=== PATIENT | female | born 1960 | race Caucasian/White ===

== ENCOUNTER → 2023-03-01 09:15 | Outpatient (BNVA) | payer OTHER, SELFPAY | PROVIDERS: PCP Family Medicine; Visit Provider Internal Medicine ==

== ENCOUNTER 2023-04-09 09:13 | Emergency (ER) | payer OTHER, SELFPAY ==
[2023-04-09 09:23] VITALS: BP 120/66; PULSE 75; RESP 18; TEMP 36.7; O2SAT 95; BMI 30.2
[2023-04-09 09:59] LABS: MANUAL DIFF FLAG NO
[2023-04-09 10:00] LABS: Basophils Absolute Auto 0.1 X10*3/uL (0.0-0.2); Basophils Percent Auto 0.4 % (0-2); Eosinophils Absolute Auto 0.3 X10*3/uL (0.0-0.4); Eosinophils Percent Auto 1.7 % (0-4); Hematocrit 34.3 % (37.0-47.0); Hemoglobin 11.1 g/dl (12.0-16.0); Imm Gran Abs Auto 0.08 X10*3/uL (0.00-0.03); Imm Gran Pct Auto 0.5 % (0.0-0.4); Lymphocytes Absolute Auto 2.2 X10*3/uL (1.2-4.9); Lymphocytes Percent Auto 14.7 % (20-40); Mean Corpuscular HGB Conc 32.4 g/dl (31.0-35.0); Mean Corpuscular Hemoglobin 27.6 pg (27.0-33.0); Mean Corpuscular Volume 85.3 fL (80.0-98.0); Mean Platelet Volume 8.7 fL (9.4-12.3); Monocytes Percent Auto 6.6 % (2-11); Neutrophils Absolute Auto 11.5 x10*3/uL (2.0-8.3); Neutrophils Percent Auto 76.1 % (45-73); Platelet Count 316 X10*3/uL (160-400); Red Blood Count 4.02 X10*6/uL (4.20-5.50); Red Cell Distribution Width 13.5 % (11.0-16.0); White Blood Count 15.1 X10*3/uL (4.8-10.8)
[2023-04-09 10:18] LABS: Alanine Aminotransferase 26 U/L (0-31); Albumin Level 3.4 g/dL (3.5-5.0); Alkaline Phosphatase 101 U/L (39-117); Anion Gap 17 (12-20); Aspartate Amino Transferase 23 U/L (5-31); Bilirubin Direct 0.2 mg/dL (0.0-0.5); Bilirubin Total 0.4 mg/dL (0.0-1.0); Blood Urea Nitrogen 20 mg/dL (9-16); Carbon Dioxide 25 mmol/L (22-29); Chloride 100 mmol/L (96-108); Creatinine Clr Calc Pharmacy 76.8; Estimated Glomerular Filt Rate > 60; Glucose Random 118 mg/dL (60-115); Lipase 12 U/L (8-78); Potassium 2.8 mmol/L (3.3-5.1); Sodium 139 mmol/L (135-145); Total Protein 7.4 g/dL (6.5-8.0)
[2023-04-09 14:25] VITALS: BP 127/64; PULSE 71; RESP 20; TEMP 36.6; O2SAT 94
--- NOTE | 2023-04-09 14:28 | PC.NURSE ---
bowel sounds absent c/o 8/10 lower abdominal pain.
--- NOTE | 2023-04-09 17:17 | PC.NURSE ---
Patient was seen in December for diverticulitis, since then her bowel movements have been decreased and what she is able to get out is thin and pencil-like. Over the past week patient states that she really hasn't had any bowel movements and knows that she is impacted. Patient with hypoactive bowel sounds at this time.
[2023-04-09 18:32] VITALS: BP 131/54; PULSE 72; RESP 18; O2SAT 95
--- NOTE | 2023-04-09 18:56 | ED_ITS ---
HPI - General Adult General Chief complaint: Abdominal Pain Stated complaint: impacted? Time Seen by Provider: 04/09/23 18:18 Source: patient Mode of arrival: ambulatory Limitations: no limitations History of Present Illness HPI narrative: Patient with history of diverticulitis been constipated since the last episode of diverticulitis in 12/25 feel bloated moving very small amount of stools last bowel movement was 3 days ago no nausea no vomiting patient tried Colace at home without much response no nausea no vomiting Related Data Home Medications Medication Instructions Recorded Confirmed amlodipine 5 mg tablet 5 mg PO DAILY 03/01/23 atorvastatin 20 mg tablet 20 mg PO DAILY 03/01/23 esomeprazole magnesium 40 mg 40 mg PO DAILY 03/01/23 capsule,delayed release (Nexium) hydrochlorothiazide 25 mg tablet 25 mg PO DAILY 03/01/23 lisinopril 30 mg tablet 30 mg PO DAILY 03/01/23 metoprolol succinate 100 mg 150 mg PO 03/01/23 tablet,extended release 24 hr trazodone 100 mg tablet 200 mg PO BEDTIME PRN 03/01/23 Previous Rx's Medication Instructions Recorded Nexium 20 mg capsule,delayed 20 mg PO DAILY #90 caps 03/01/23 release (esomeprazole magnesium) bisacodyl 5 mg tablet,delayed 10 mg PO BEDTIME #30 tabs 04/09/23 release (Dulcolax (bisacodyl)) polyethylene glycol 3350 17 17 g PO DAILY #510 grams 04/09/23 gram/dose oral powder (Miralax) Allergies Allergy/AdvReac Type Severity Reaction Status Date / Time amoxicillin [Augmentin] Allergy Unknown GI, Verified 04/09/23 09:27 Difficulty breathing clavulanic acid [Augmentin] Allergy Unknown GI, Verified 04/09/23 09:27 Difficulty breathing codeine [CODEINE] Allergy Unknown SENSITIVIT Verified 04/09/23 09:27 Y erythromycin base Allergy Unknown GI, DIFF Verified 04/09/23 09:27 [Erythromycin Base] BREATHING NSAIDS (Non-Steroidal Allergy Unknown GI UPSET Verified 04/09/23 09:27 Anti-Inflamma [NSAIDS (NON-STEROIDAL ANTI-INFLAMMA] shellfish derived Allergy Unknown Sensitivity Verified 04/09/23 09:27 Sulfa (Sulfonamide Allergy Unknown RASH Verified 04/09/23 09:27 Antibiotics) morphine [MORPHINE] AdvReac Severe NAUSEA Verified 04/09/23 09:27 aspirin [Aspirin] AdvReac Mild STOMACH Verified 04/09/23 09:27 UPSET Review of Systems Review of Systems: Yes all other systems are reviewed and are negative [facility] Past Medical History Surgical History History of esophagogastroduodenoscopy (EGD) Hx of colonoscopy Family History Family History Father Colon cancer Paternal Aunt Colon cancer Social History Social History Advance Directives: No Advance Directives Information Provided: Yes Physical Exam ED Vital Signs: Vital Signs - 24 hr 04/09/23 09:23 04/09/23 14:25 04/09/23 18:32 Temperature 98.0 F 97.9 F Pulse Rate 75 71 72 Respiratory Rate 18 20 18 Blood Pressure 120/66 127/64 131/54 L Pulse Oximetry 95 94 95 Oxygen Delivery Method Room Air Room Air Room Air BMI result Body Mass Index 30.2 Appearance: Alert. Oriented X3. No acute distress. Eyes: No pallor or icterus ENT: Pharynx normal. Oral Mucosa moist Neck: Normal inspection. Neck supple. CVS: Normal heart rate and rhythm. Pulses normal. Respiratory: No respiratory distress. Equal air entry bilateral, no wheezing/rales/rhonchi Abdomen: Soft and nontender. Bowel sounds are present, no mass palpable, no CVA tenderness rectal: Soft stool Skin: Skin warm and dry. Normal skin color. Normal skin turgor. Extremities: No lower extremity edema. No calf tenderness Neuro: Oriented X 3. No motor deficit. Medications Administered Discontinued Medications Generic Name Dose Route Start Last Admin Trade Name Freq PRN Reason Stop Dose Admin Bisacodyl 10 mg 04/09/23 18:44 04/09/23 19:08 Bisacodyl 5 Mg Tablet. PO 04/09/23 18:45 10 mg ONCE ONE Administration Magnesium Hydroxide 30 ml 04/09/23 18:44 04/09/23 19:08 Milk Of Magnesia 30 Ml Oral.Susp PO 04/09/23 18:45 30 ml ONCE ONE Administration Polyethylene Glycol 17 gm 04/09/23 18:56 04/09/23 19:08 Polyethylene Glycol 3350 17 Gm Powd.Pack PO 04/09/23 18:57 17 gm ONCE ONE Administration Medical Decision Making Lab Data 04/09/23 09:53 04/09/23 09:53 Labs: Lab Results 04/09/23 04/09/23 Range/Units 09:53 09:53 WBC 15.1 H (4.8-10.8) X10*3/uL RBC 4.02 L (4.20-5.50) X10*6/uL Hgb 11.1 L (12.0-16.0) g/dl Hct 34.3 L (37.0-47.0) % MCV 85.3 (80.0-98.0) fL MCH 27.6 (27.0-33.0) pg MCHC 32.4 (31.0-35.0) g/dl RDW 13.5 (11.0-16.0) % Plt Count 316 (160-400) X10*3/uL MPV 8.7 L (9.4-12.3) fL Immature Gran % (Auto) 0.5 H (0.0-0.4) % Neut % (Auto) 76.1 H (45-73) % Lymph % (Auto) 14.7 L (20-40) % [place] % (Auto) 6.6 (2-11) % Eos % (Auto) 1.7 (0-4) % Baso % (Auto) 0.4 (0-2) % Lymph # (Auto) 2.2 (1.2-4.9) X10*3/uL [place] # (Auto) 1.0 (0.1-1.2) X10*3/uL Eos # (Auto) 0.3 (0.0-0.4) X10*3/uL Baso # (Auto) 0.1 (0.0-0.2) X10*3/uL Abs Immat Gran (auto) 0.08 H (0.00-0.03) X10*3/uL Absolute Neuts (auto) 11.5 H (2.0-8.3) x10*3/uL Absolute Nucleated RBC 0.000 (0.0-0.012) X10*3/uL Nucleated RBC % (auto) 0.0 (0.0-0.2) /100WBC Sodium 139 (135-145) mmol/L Potassium 2.8 L (3.3-5.1) mmol/L Chloride 100 (96-108) mmol/L Carbon Dioxide 25 (22-29) mmol/L Anion Gap 17 (12-20) BUN 20 H (9-16) mg/dL Creatinine 0.70 (0.5-1.4) mg/dL Estim Creat Clear Calc 76.8 Estimated GFR > 60 Random Glucose 118 H (60-115) mg/dL Calcium 9.0 (8.4-10.2) mg/dL Total Bilirubin 0.4 (0.0-1.0) mg/dL Direct Bilirubin 0.2 (0.0-0.5) mg/dL AST 23 (5-31) U/L ALT 26 (0-31) U/L Alkaline Phosphatase 101 (39-117) U/L Total Protein 7.4 (6.5-8.0) g/dL Albumin 3.4 L (3.5-5.0) g/dL Lipase 12 (8-78) U/L Discharge Plan Discharge Clinical Impression: Constipation Patient Disposition: Home, Self-Care Instructions: Constipation (ED) Additional Instructions: Drink plenty of fluids Take MiraLax daily Dulcolax also daily at bedtime if constipation continue Prescriptions: New polyethylene glycol 3350 [Miralax] 17 gram/dose powder 17 g PO DAILY Qty: 510 0RF bisacodyl [Dulcolax (bisacodyl)] 5 mg tablet,delayed release (DR/EC) 10 mg PO BEDTIME Qty: 30 0RF No Action metoprolol succinate 100 mg tablet extended release 24 hr 150 mg PO hydrochlorothiazide 25 mg tablet 25 mg PO DAILY amlodipine 5 mg tablet 5 mg PO DAILY trazodone 100 mg tablet 200 mg PO BEDTIME PRN atorvastatin 20 mg tablet 20 mg PO DAILY lisinopril 30 mg tablet 30 mg PO DAILY esomeprazole magnesium [Nexium] 40 mg capsule,delayed release(DR/EC) 40 mg PO DAILY esomeprazole magnesium [Nexium] 20 mg capsule,delayed release(DR/EC) 20 mg PO DAILY Qty: 90 1RF
[2023-04-09] MEDS: Milk of Magnesia 30 ML ORAL.SUSP PO (19:08)
[2023-04-09] MEDS: polyethylene glycoL 3350 17 GM POWD.PACK PO (19:08)
[2023-04-09] MEDS: bisacodyL 5 MG TABLET.DR 10 MG PO (19:08)
== END 2023-04-09 19:15 | disposition home or self-care (01) ==
PROVIDERS: Emergency Provider Internal Medicine; PCP Family Medicine
DX: K59.00 Constipation, unspecified (principal); Z79.899 Other long term (current) drug therapy
CPT/HCPCS: 36415; 80048; 80076; 83690; 85025; 99284

== ENCOUNTER 2023-04-26 11:17 | Outpatient (AMB) | payer OTHER, SELFPAY ==
--- NOTE | 2023-04-26 11:19 | MHC.OFFVIS ---
Intake Vital Signs 04/26/23 11:20 Height 5 ft 2 in Weight 156 lb 4 oz BMI 28.6 BP 107/59 L Blood Pressure Location Rt brachial Position Sitting Pulse 68 Pulse Source Pulse Oximeter Pulse Oximetry (%) 96 Oxygen Delivery Method Room Air Intake Visit Reasons: ER FOLLOW UP Intake Note: Pt presents to the office today for an ER follow up. Pt states she is still having pain especially when she has a bowel movement. She states before a bowel movement she has sharp glass like pains and a deep ache . Pt states she has a lowered appetite with some nausea. Pt denies any vomiting and diarrhea. She states she doesn't see any blood in her stool. Allergies amoxicillin [Augmentin] Allergy (Unknown, Verified 04/26/23 11:24) GI, Difficulty breathing clavulanic acid [Augmentin] Allergy (Unknown, Verified 04/26/23 11:24) GI, Difficulty breathing codeine [CODEINE] Allergy (Unknown, Verified 04/26/23 11:24) SENSITIVITY erythromycin base [Erythromycin Base] Allergy (Unknown, Verified 04/26/23 11:24) GI, DIFF BREATHING NSAIDS (Non-Steroidal Anti-Inflamma [NSAIDS (NON-STEROIDAL ANTI-INFLAMMA] Allergy (Unknown, Verified 04/26/23 11:24) GI UPSET shellfish derived Allergy (Unknown, Verified 04/26/23 11:24) Sensitivity Sulfa (Sulfonamide Antibiotics) Allergy (Unknown, Verified 04/26/23 11:24) RASH morphine [MORPHINE] Adverse Reaction (Severe, Verified 04/26/23 11:24) NAUSEA aspirin [Aspirin] Adverse Reaction (Mild, Verified 04/26/23 11:24) STOMACH UPSET HPI HPI Comments History of Present Illness Details This is a 63 y.o F with PMH of hiatal hernia, ? perez's esophagus, personal hx of polyps, fam hx of colon ca, who is here to re-establish care. 03/01/23: Pt has longstanding hx of sigmoid diverticulosis with recurrent episodes of diverticulitis. Most recent episode was one month ago, managed as outpatient with PO cipro and flagyl. Currently main complaint is intermittent constipation. Pt also reports being diagnsed with perez's > 10 years ago at [facility]. Has been on Nexium 40 for a long time now. Last colo 01/2019 - sigmoid diverticulosis. x2 tubular adenoma. 04/26/23: Was seen in ER earlier this month for severe lower abdominal pain secondary to constipation. Had good response to bisacodyl and miralax while she was taking it. Currently not on any scheduled bowel regimen. Fluid intake limited to 6-8 cups a day. Stopped fiber as made abd cramping worse. At present main complaint is severe lower abd cramping with associated with small BMs. PFSH Surgical History History of esophagogastroduodenoscopy (EGD) Hx of colonoscopy Family History Father Colon cancer Paternal Aunt Colon cancer Social History Alcohol intake: never Patient Tobacco Use Status: Current everyday Tobacco user Cigarettes Per Day: 8 Review of Systems Const All systems reviewed & are unremarkable except as noted in HPI and below Physical Exam Vital Signs: Last Vital Signs Pulse 68 04/26/23 11:20 BP 107/59 L 04/26/23 11:20 Pulse Ox 96 04/26/23 11:20 Oxygen Delivery Method Room Air 04/26/23 11:20 BMI result Body Mass Index 28.6 Gen appear: NAD HEENT: nonicteric, no cervical lymphadenopathy Chest: CTA CVS: Regular S1/S2 Abd: soft, nontender, nondistended, bowel sounds + Ext: no peripheral edema Neuro: A/Ox3, noted to move all extremities spontaneously Psych: interacting appropriately Assessment & Plan Assessment & Plan (1) Diverticulosis: Code(s): K57.90 - Diverticulosis of intestine, part unspecified, without perforation or abscess without bleeding (2) Hiatal hernia: Code(s): K44.9 - Diaphragmatic hernia without obstruction or gangrene (3) GERD (gastroesophageal reflux disease): Code(s): K21.9 - Gastro-esophageal reflux disease without esophagitis (4) Barretts esophagus: Code(s): K22.70 - Perez's esophagus without dysplasia (5) Irritable bowel syndrome with constipation: Code(s): K58.1 - Irritable bowel syndrome with constipation Plan 1. Constipation. Appears to be combination of IBS-C and symptomatic diverticular disease. Reviewed daily use of miralax to regulate BMs however if that does not counter the global sx such as abd pain and cramping, low threshold to start Amitiza. Hx of polyps and fam hx of CRC. Last colo January 2019 with good prep. - Take miralax 17g mixed in 8oz water every day - If minimal response in constipation and abd cramping in 5-7 days, start amitiza 8mcg BID - This is to be continued for at least 8 weeks to monitor response - Avoid smoking. Avoid NSAIDs. - Next colo due 01/2024 - Follow up in 2-3 months 2. GERD/? BE: Irregular Z line in 2005. Biopsies not available but ? BE. Will book for an EGD with WATS-3D exam alongside the colonoscopy next year. Cont Nexium 20 Medications: New lubiprostone 8 mcg PO BID 90 days 180 caps 0RF Coding Level of Care Code Est Pt Level 4 (25440) Diagnoses Diverticulosis K57.90 Hiatal hernia K44.9 GERD (gastroesophageal reflux disease) K21.9 Barretts esophagus K22.70 Irritable bowel syndrome with constipation K58.1
[2023-04-26 11:20] VITALS: BP 107/59; PULSE 68; O2SAT 96; BMI 28.6
== END 2023-04-26 11:58 | disposition home or self-care (01) ==
PROVIDERS: PCP Family Medicine; Visit Provider Internal Medicine
DX: K57.90 Diverticulosis of intestine, part unspecified, without perforation or abscess without bleeding (principal); K44.9 Diaphragmatic hernia without obstruction or gangrene; K21.9 Gastro-esophageal reflux disease without esophagitis; K22.70 Barrett's esophagus without dysplasia; K58.1 Irritable bowel syndrome with constipation
CPT/HCPCS: 99214

== ENCOUNTER → 2023-04-26 11:17 | Outpatient (BNVA) | payer OTHER, SELFPAY | PROVIDERS: PCP Family Medicine; Visit Provider Internal Medicine ==

== ENCOUNTER 2023-05-04 10:57 | Inpatient (IN) | payer OTHER, SELFPAY ==
--- NOTE | ~2023-05-04 | XR_ITS ---
EXAMINATION: XR CHEST CLINICAL INFORMATION: Shortness of breath. Postop. COMPARISON: Previous chest x-ray 05/08/2023 TECHNIQUE: Frontal view of the chest was obtained. FINDINGS: There is a right jugular line with tip projecting over the cavoatrial junction. The cardiac and mediastinal contours are stable. There is loss of the left hemidiaphragm suggestive of left lower lobe atelectasis or consolidation. The right lung is clear. There are small bilateral pleural effusions, left greater than right. There is no pneumothorax. XR/XR chest 1V IMPRESSION: Left lower lobe atelectasis/consolidation and small bilateral pleural effusions, left greater than right.
--- NOTE | ~2023-05-04 | CT_ITS ---
EXAMINATION: CT ABDOMEN AND PELVIS WITHOUT CONTRAST CLINICAL INFORMATION: Abdominal pain. Constipation. COMPARISON: 08/09/2019 TECHNIQUE: Multidetector volumetric imaging was performed from the superior aspect of the liver through the pubic symphysis. Sagittal and coronal reformatted images were obtained on the technologist's workstation. This CT examination was performed using dose optimization techniques as appropriate, variously including the following: *Automated exposure control *Adjustment of mA and/or kV according to patient size (this includes techniques or standardized protocols for targeted exams where dose is matched to indication/reason for exam; i.e. extremities or head) *Use of iterative reconstruction technique DLP: 523 mGy-cm FINDINGS: LUNG BASES: No pleural or pericardial effusion. LIVER, GALLBLADDER, AND BILIARY TREE: The noncontrast liver is nodular. No biliary ductal dilatation is present. The gallbladder is unremarkable with no evidence of radiopaque gallstones, gallbladder wall thickening, or obvious pericholecystic inflammatory changes. PANCREAS: Atrophic. SPLEEN: Not enlarged. ADRENAL GLANDS: No adrenal mass. KIDNEYS AND URETERS: The kidneys are symmetric in size. No hydronephrosis or perinephric stranding. BLADDER: Focal wall thickening at the bladder dome in direct contiguity with a collection containing gas and fluid measuring 3.6 x 3.9 x 3.7 cm on image 67 of series 3. GASTROINTESTINAL TRACT: There is marked wall thickening of the sigmoid colon with pericolonic stranding. There is an associated fluid collection containing gas in the midline pelvis measuring 5.9 x 3.4 x 4.5 cm on image 62 of series 3. There is diverticular disease of the descending and sigmoid colon. No small bowel obstruction. Appendix is within normal limits. ABDOMINAL WALL: No significant hernia is appreciated. LYMPH NODES: No bulky abdominal or pelvic lymphadenopathy. VASCULAR: Normal caliber abdominal aorta. PELVIC VISCERA: Small free fluid in the pelvis. No large adnexal masses are appreciated. OSSEOUS STRUCTURES: No destructive bone lesions. CT/CT abdomen pelvis wo IV con IMPRESSION: Findings likely representing perforated acute diverticulitis with fistulization to the urinary bladder. Fluid collection at the dome of the urinary bladder containing gas measures 3.6 x 3.7 x 3.9 cm. Fluid collection in the midline pelvis containing gas measures 5.9 x 3.4 x 4.5 cm. Surgical consultation is recommended. Findings were reviewed and discussed with Hiwot MORIN at 1:15 PM on 05/04/2023. Nodular liver. This may represent chronic liver disease. Advise clinical correlation.
--- NOTE | ~2023-05-04 | XR_ITS ---
EXAMINATION: XR CHEST CLINICAL INFORMATION: Line placement COMPARISON: 08/18/2016 TECHNIQUE: Frontal view of the chest was obtained. FINDINGS: Right internal jugular CVL with tip at the superior cavoatrial junction. Normal cardiomediastinal silhouette. Adequate expansion of lungs. No focal consolidation. No pleural effusion or pneumothorax. No acute osseous abnormality. XR/XR chest 1V IMPRESSION: 1. Right internal jugular CVL with tip at the superior cavoatrial junction. 2. No acute disease within the chest.
--- NOTE | ~2023-05-04 | FL_ITS ---
EXAMINATION: XR FLUOROSCOPY WITH IMAGES CLINICAL INFORMATION: [employer] COMPARISON: Previous CT of the abdomen and pelvis, most recent 05/04/2023. TECHNIQUE: Performed by Dr. Fisher. 1.87 mGy 0.0326 mGym2 0.1 minutes No submitted fluoroscopic image. FINDINGS: Intraoperative fluoroscopy guidance. Single image demonstrates wire or stent and contrast in the left distal ureter. There is question of extravasated contrast outside/lateral to the left distal ureter. FL/FL guidance in OR IMPRESSION: Intraoperative fluoroscopy guidance for urology procedure.
--- NOTE | ~2023-05-04 | CT_ITS ---
PROCEDURE: CT GUIDED ABSCESS DRAINAGE CLINICAL INFORMATION: Diverticular abscess with multiple fluid collections about the pelvis. COMPARISON: 05/04/2023 TECHNIQUE: CT fluoroscopic-guided aspiration of pelvic fluid collections. This CT examination was performed using dose optimization techniques as appropriate, variously including the following: *Automated exposure control *Adjustment of mA and/or kV according to patient size (this includes techniques or standardized protocols for targeted exams where dose is matched to indication/reason for exam; i.e. extremities or head) *Use of iterative reconstruction technique DLP: 1168 mGy-cm CONSCIOUS SEDATION: The patient received intravenous conscious sedation under my direct supervision. A registered nurse monitored the patient and the patient's vital signs throughout the procedure. The total sedation time was 60 minutes. A total of 2 mg of Versed and 100 mcg fentanyl was given for good effect. FINDINGS: Informed consent was obtained from the patient prior to the procedure. During this process, the procedure and potential alternatives were explained, along with the intended outcome and benefits. The risks of the procedure, as well as the risk of not doing the procedure, were discussed. The patient was given the opportunity to ask questions regarding the procedure and appeared competent to make medical decisions. A signed consent form which documents this discussion was placed in the medical record. Using sterile technique and CT fluoroscopic guidance, from a left anterior approach a 5-Cambodian Yueh needle was directed into the more superior fluid collection with removal of approximately 20 mL of clear fluid with no evidence of grossly purulent fluid. 2 separate passes into the suprapubic collection containing air was performed from an anterior approach with a 5-Cambodian Yueh needle. On initial drainage of the superior aspect, a total of 6 mL of yellow fluid and gas was aspirated which gelatinized within 2 minutes. Samples were sent for laboratory studies. Patient tolerated procedure without difficulty. CT/CT guided drainage IMPRESSION: Aspiration of 2 pelvic fluid collections with no grossly purulent fluid identified. Above report called to referring physician at completion of the procedure.
[2023-05-04 11:00] VITALS: BP 104/59; PULSE 82; RESP 16; TEMP 36.7; O2SAT 95; BMI 28.4
--- NOTE | 2023-05-04 11:09 | ED_ITS ---
HPI - Abdominal Pain General Chief Complaint: Abdominal Pain Stated Complaint: colon pain Time Seen by Provider: 05/04/23 11:09 Source: patient Mode of arrival: ambulatory Limitations: no limitations History of Present Illness HPI narrative: 63 yo female with history of GERD, Menon's esophagus, IBS w/ constipation, diverticulosis, hiatial hernia, HTN, HLD who presents to the ER for evaluation of severe abdominal pains and constipation for the last several weeks along with new onset hematuria that started today. Patient has been following with GI, just saw Dr. Merrill on 04/26. She has been taking miralax daily but only able to have small bowel movements. She is nauseated and unable to eat. She has been waiting insurance authorization for a CT scan for further evaluation of her symptoms. She reports new onset of gross hematuria that started this morning. It joseph and hurts to urinate. No back pain. No fevers. No history of similar. This prompted her to come into the ER today. MD elicited complaint: abdominal pain Pertinent past history: constipation Onset (ago): week(s) Pain Consistency: constant Location: diffuse Severity: moderate Quality: cramping Radiation: none Migration to: no migration Exacerbating factors: eating Relieving factors: nothing Context: history of similar episodes Associated symptoms: nausea, constipation, dysuria and other (hematuria) Related Data Home Medications Medication Instructions Recorded Confirmed amlodipine 5 mg tablet 5 mg PO DAILY 03/01/23 05/04/23 atorvastatin 20 mg tablet 20 mg PO DAILY 03/01/23 05/04/23 esomeprazole magnesium 40 mg 40 mg PO DAILY 03/01/23 capsule,delayed release (Nexium) hydrochlorothiazide 25 mg tablet 25 mg PO DAILY 03/01/23 05/04/23 lisinopril 30 mg tablet 30 mg PO DAILY 03/01/23 05/04/23 metoprolol succinate 100 mg 150 mg PO DAILY 03/01/23 05/04/23 tablet,extended release 24 hr trazodone 100 mg tablet 200 mg PO BEDTIME PRN Insomnia 03/01/23 05/04/23 Previous Rx's Medication Instructions Recorded Nexium 20 mg capsule,delayed 20 mg PO DAILY #90 caps 03/01/23 release (esomeprazole magnesium) bisacodyl 5 mg tablet,delayed 10 mg PO BEDTIME #30 tabs 04/09/23 release (Dulcolax (bisacodyl)) polyethylene glycol 3350 17 17 g PO DAILY #510 grams 04/09/23 gram/dose oral powder (Miralax) lubiprostone 8 mcg capsule 8 mcg PO BID 90 days #180 caps 04/26/23 Allergies Allergy/AdvReac Type Severity Reaction Status Date / Time amoxicillin [Augmentin] Allergy Unknown GI, Verified 05/03/23 16:29 Difficulty breathing clavulanic acid [Augmentin] Allergy Unknown GI, Verified 05/03/23 16:29 Difficulty breathing codeine [CODEINE] Allergy Unknown SENSITIVIT Verified 05/03/23 16:29 Y erythromycin base Allergy Unknown GI, DIFF Verified 05/03/23 16:29 [Erythromycin Base] BREATHING NSAIDS (Non-Steroidal Allergy Unknown GI UPSET Verified 05/03/23 16:29 Anti-Inflamma [NSAIDS (NON-STEROIDAL ANTI-INFLAMMA] shellfish derived Allergy Unknown Sensitivity Verified 05/03/23 16:29 Sulfa (Sulfonamide Allergy Unknown RASH Verified 05/03/23 16:29 Antibiotics) morphine [MORPHINE] AdvReac Severe NAUSEA Verified 05/03/23 16:29 aspirin [Aspirin] AdvReac Mild STOMACH Verified 05/03/23 16:29 UPSET Review of Systems Review of Systems Yes all other systems are reviewed and are negative PMFSH Past Medical History Surgical History History of esophagogastroduodenoscopy (EGD) Hx of colonoscopy Family History Family History Father Colon cancer Paternal Aunt Colon cancer Social History Social History Alcohol intake: never Patient Tobacco Use Status: Current everyday Tobacco user Cigarettes Per Day: 8 Smoked in Last 30 Days: Yes Use of substances other than those prescribed or required for medical reasons: Yes Substance Use Type: Marijuana Substance Use Frequency: Daily Advance Directives: No Patient : No Physical Exam ED Vital Signs: Vital Signs - 24 hr 05/04/23 11:00 05/04/23 14:18 Temperature 98.1 F 98.3 F Pulse Rate 82 79 Respiratory Rate 16 16 Blood Pressure 104/59 L 108/46 L Pulse Oximetry 95 95 Oxygen Delivery Method Room Air Room Air BMI result Body Mass Index 28.4 Appearance: Alert. Oriented X3. No acute distress. Head: normocephalic, atraumatic. Eyes: Pupils equal, round and reactive to light. ENT: Pharynx normal. No tonsillar swelling or exudate. Neck: Normal inspection. Neck supple. CVS: Normal heart rate and rhythm. Pulses normal. Respiratory: No respiratory distress. Breath sounds normal. Abdomen: Soft with guarding and tenderness in the lower abdomen, L>R, decreased but present +BS x4 Skin: Skin warm and dry. Normal skin color. Normal skin turgor. No rashes. Extremities: No lower extremity edema. No joint swelling. Neuro/psych: Oriented X 3. No motor deficit. No sensory deficit. CN II-XII intact. Normal speech and cognition. Course Reevaluation(s) Reevaluation #1: spoke with jessica radiology re: CT scan findings. lactic acid and blood cultures ordered along with IV abx and additional pain control. Dr. Quan Gen Surgery contacted for further management patient updated on results and plan for surgical evaluation Time: 13:42 Medical Decision Making Medical Decision Making [facility] Narrative: 63 yo female with history of GERD, Menon's esophagus, IBS w/ constipation, diverticulosis, hiatial hernia, HTN, HLD who presents to the ER for evaluation of severe abdominal pains and constipation for the last several weeks along with new onset hematuria that started today. Abd is tender in the lower abdomen but not rigid. No fever with stable VS. Labs showing acute on chronic leukocytosis - 21k today, 15K last 2 draws. pain relieved somewhat with dilaudid. CT scan showing perforated diverticulitis w/ fisulization to the bladder, d/w radiologist lactic acid normal cefepime/flagyl and additional IVF ordered plan for surgical admit, Dr. Quan accepts Differential Diagnosis Differential Diagnoses: The differential diagnosis associated with the presentation includes constipation, SBO, [place], diverticulitis, kidney stone, UTI, Admission/Observation Consideration of admission/observation: Escalation of care including admission/observation considered Consult Healthcare Provider Management of the patient was discussed with: Information Systems Specialist Dr. Quan general surgery Lab Data [facility] Lab Attestation statement: I reviewed the patient's lab results. WBC 21.2, baseline WBC 15K from last 2 lab draws 05/04/23 11:59 05/04/23 11:59 Labs: Lab Results 05/04/23 05/04/23 05/04/23 Range/Units 11:59 13:16 13:27 WBC 21.2 H (4.8-10.8) X10*3/uL RBC 3.97 L (4.20-5.50) X10*6/uL Hgb 10.9 L (12.0-16.0) g/dl Hct 33.2 L (37.0-47.0) % MCV 83.6 (80.0-98.0) fL MCH 27.5 (27.0-33.0) pg MCHC 32.8 (31.0-35.0) g/dl RDW 13.7 (11.0-16.0) % Plt Count 461 H D (160-400) X10*3/uL MPV 8.6 L (9.4-12.3) fL Immature Gran % (Auto) 0.7 H (0.0-0.4) % Neut % (Auto) 77.6 H (45-73) % Lymph % (Auto) 14.5 L (20-40) % [place] % (Auto) 6.3 (2-11) % Eos % (Auto) 0.6 (0-4) % Baso % (Auto) 0.3 (0-2) % Lymph # (Auto) 3.1 (1.2-4.9) X10*3/uL [place] # (Auto) 1.3 H (0.1-1.2) X10*3/uL Eos # (Auto) 0.1 (0.0-0.4) X10*3/uL Baso # (Auto) 0.1 (0.0-0.2) X10*3/uL Abs Immat Gran (auto) 0.14 H (0.00-0.03) X10*3/uL Absolute Neuts (auto) 16.5 H (2.0-8.3) x10*3/uL Absolute Nucleated RBC 0.000 (0.0-0.012) X10*3/uL Nucleated RBC % (auto) 0.0 (0.0-0.2) /100WBC Sodium 135 (135-145) mmol/L Potassium 3.2 L (3.3-5.1) mmol/L Chloride 97 (96-108) mmol/L Carbon Dioxide 26 (22-29) mmol/L Anion Gap 15 (12-20) BUN 19 H (9-16) mg/dL Creatinine 0.69 (0.5-1.4) mg/dL Estim Creat Clear Calc 75.7 Estimated GFR > 60 Random Glucose 80 (60-115) mg/dL Lactic Acid (0.5-2.0) mmol/L Calcium 8.9 (8.4-10.2) mg/dL Magnesium 2.2 (1.6-2.6) mg/dL Total Bilirubin 0.3 (0.0-1.0) mg/dL Direct Bilirubin 0.1 (0.0-0.5) mg/dL AST 15 (5-31) U/L ALT 11 (0-31) U/L Alkaline Phosphatase 93 (39-117) U/L Total Protein 7.1 (6.5-8.0) g/dL Albumin 2.9 L (3.5-5.0) g/dL Urine Color Yellow Urine Appearance Turbid Urine pH 5.5 (5.0-9.0) Ur Specific [place] 1.020 (1.005-1.025) Urine Protein 300 (3+) H (Neg-Trace) mg/dL Urine Glucose (UA) Negative (Negative) mg/dL Urine Ketones 15 (Negative) mg/dL Urine Blood Large (3+) H (Negative) Urine Nitrite Positive H (Negative) Ur Leukocyte Esterase Large (3+) H (Negative) Urine RBC >20 H (0-2) /HPF Urine WBC >50 H (0-5) /HPF Urine WBC Clumps Present Ur Squamous Epith Cells >20 (0-2) /HPF Urine Bacteria 4+ (None Seen) Hyaline Casts 3-5 (0-2) /LPF 05/04/23 Range/Units 13:44 WBC (4.8-10.8) X10*3/uL RBC (4.20-5.50) X10*6/uL Hgb (12.0-16.0) g/dl Hct (37.0-47.0) % MCV (80.0-98.0) fL MCH (27.0-33.0) pg MCHC (31.0-35.0) g/dl RDW (11.0-16.0) % Plt Count (160-400) X10*3/uL MPV (9.4-12.3) fL Immature Gran % (Auto) (0.0-0.4) % Neut % (Auto) (45-73) % Lymph % (Auto) (20-40) % [place] % (Auto) (2-11) % Eos % (Auto) (0-4) % Baso % (Auto) (0-2) % Lymph # (Auto) (1.2-4.9) X10*3/uL [place] # (Auto) (0.1-1.2) X10*3/uL Eos # (Auto) (0.0-0.4) X10*3/uL Baso # (Auto) (0.0-0.2) X10*3/uL Abs Immat Gran (auto) (0.00-0.03) X10*3/uL Absolute Neuts (auto) (2.0-8.3) x10*3/uL Absolute Nucleated RBC (0.0-0.012) X10*3/uL Nucleated RBC % (auto) (0.0-0.2) /100WBC Sodium (135-145) mmol/L Potassium (3.3-5.1) mmol/L Chloride (96-108) mmol/L Carbon Dioxide (22-29) mmol/L Anion Gap (12-20) BUN (9-16) mg/dL Creatinine (0.5-1.4) mg/dL Estim Creat Clear Calc Estimated GFR Random Glucose (60-115) mg/dL Lactic Acid 1.1 (0.5-2.0) mmol/L Calcium (8.4-10.2) mg/dL Magnesium (1.6-2.6) mg/dL Total Bilirubin (0.0-1.0) mg/dL Direct Bilirubin (0.0-0.5) mg/dL AST (5-31) U/L ALT (0-31) U/L Alkaline Phosphatase (39-117) U/L Total Protein (6.5-8.0) g/dL Albumin (3.5-5.0) g/dL Urine Color Urine Appearance Urine pH (5.0-9.0) Ur Specific [place] (1.005-1.025) Urine Protein (Neg-Trace) mg/dL Urine Glucose (UA) (Negative) mg/dL Urine Ketones (Negative) mg/dL Urine Blood (Negative) Urine Nitrite (Negative) Ur Leukocyte Esterase (Negative) Urine RBC (0-2) /HPF Urine WBC (0-5) /HPF Urine WBC Clumps Ur Squamous Epith Cells (0-2) /HPF Urine Bacteria (None Seen) Hyaline Casts (0-2) /LPF Independent Interpretation I performed an independent interpretation of an: CT Scan Interpretation: ct with significant sigmoid colon abnormalities - agree w/ radiologist read Radiology Impression Discussion of test interpretation with radiology: I discussed test interpretation with the radiologist and I have reviewed the radiologist's reading. Radiologist Impression: EXAMINATION: CT ABDOMEN AND PELVIS WITHOUT CONTRAST? CLINICAL INFORMATION: Abdominal pain. Constipation.? COMPARISON: 08/09/2019 TECHNIQUE: Multidetector volumetric imaging was performed from the superior aspect of the liver through the pubic symphysis. Sagittal and coronal reformatted images were obtained on the technologist's workstation.? This CT examination was performed using dose optimization techniques as appropriate, variously including the following: *Automated exposure control *Adjustment of mA and/or kV according to patient size (this includes techniques or standardized protocols for targeted exams where dose is matched to indication/reason for exam; i.e. extremities or head) *Use of iterative reconstruction technique DLP: 523 mGy-cm FINDINGS: LUNG BASES: No pleural or pericardial effusion.? LIVER, GALLBLADDER, AND BILIARY TREE: The noncontrast liver is nodular. No biliary ductal dilatation is present. The gallbladder is unremarkable with no evidence of radiopaque gallstones, gallbladder wall thickening, or obvious pericholecystic inflammatory changes.? PANCREAS: Atrophic. SPLEEN: Not enlarged. ADRENAL GLANDS: No adrenal mass. KIDNEYS AND URETERS: The kidneys are symmetric in size. No hydronephrosis or perinephric stranding. ? BLADDER: Focal wall thickening at the bladder dome in direct contiguity with a collection containing gas and fluid measuring 3.6 x 3.9 x 3.7 cm on image 67 of series 3. GASTROINTESTINAL TRACT: There is marked wall thickening of the sigmoid colon with pericolonic stranding. There is an associated fluid collection containing gas in the midline pelvis measuring 5.9 x 3.4 x 4.5 cm on image 62 of series 3. There is diverticular disease of the descending and sigmoid colon. No small bowel obstruction. Appendix is within normal limits. ABDOMINAL WALL: No significant hernia is appreciated.? LYMPH NODES: No bulky abdominal or pelvic lymphadenopathy. VASCULAR: Normal caliber abdominal aorta. PELVIC VISCERA: Small free fluid in the pelvis. No large adnexal masses are appreciated. OSSEOUS STRUCTURES: No destructive bone lesions. CT/CT abdomen pelvis wo IV con IMPRESSION: ? Findings likely representing perforated acute diverticulitis with fistulization to the urinary bladder. ? Fluid collection at the dome of the urinary bladder containing gas measures 3.6 x 3.7 x 3.9 cm. ? Fluid collection in the midline pelvis containing gas measures 5.9 x 3.4 x 4.5 cm. ? Surgical consultation is recommended. Findings were reviewed and discussed with Hiwot MORIN at 1:15 PM on 05/04/2023. ? Nodular liver. This may represent chronic liver disease. Advise clinical correlation. External Record Review External record reviewed: Office record, Outpatient record, Prior outpatient labs and Prior outpatient radiology Prescription Management I considered prescription management with: Pain Medication and Antibiotic Chronic Conditions Patient?s care impacted by: Other (constipation, diverticulosis) Medications Administered Discontinued Medications Generic Name Dose Route Start Last Admin Trade Name Freq PRN Reason Stop Dose Admin Hydromorphone HCl 0.5 mg 05/04/23 11:33 05/04/23 12:02 Hydromorphone Hcl 0.5 Mg/0.5 Ml Syringe IVPUSH 05/04/23 11:34 0.5 mg ONCE ONE Administration Protocol Hydromorphone HCl 0.5 mg 05/04/23 13:28 05/04/23 13:49 Hydromorphone Hcl 0.5 Mg/0.5 Ml Syringe IVPUSH 05/04/23 13:29 0.5 mg ONCE ONE Administration Protocol Sodium Chloride 1,000 mls @ 999 mls/hr 05/04/23 11:45 05/04/23 12:02 Ns IVCONT 05/04/23 12:45 999 mls/hr .[id number] ARISTIDES Administration Cefepime HCl 2 gm/ Sodium 50 mls @ 100 mls/hr 05/04/23 13:20 05/04/23 13:50 Chloride IV 05/04/23 13:49 100 mls/hr ONCE ONE Administration Ondansetron HCl 4 mg 05/04/23 11:33 05/04/23 12:02 Ondansetron Hcl 4 Mg/2 Ml Vial IVPUSH 05/04/23 11:34 4 mg ONCE ONE Administration Critical Care Time Critical Care Time Critical Care Time: Yes Total Critical Care Time: 44 Attestation: I have personally provided critical care time exclusive of time spent on separately billable procedures. Time includes review of lab data, radiology results, discussion with consultants, and monitoring for potential decompensation. Intervention performed as documented. Discharge Plan Discharge Clinical Impression: Perforated diverticulum, Bladder fistula Patient Disposition: Admitted As Inpatient
[2023-05-04] MEDS: ondansetron HCL 4 MG/2 ML VIAL IVPUSH (12:02)
[2023-05-04] MEDS: 0.9 % Sodium Chloride 1,000 ML 999 ML IVCONT (12:02)
[2023-05-04] MEDS: HYDROmorphone HCl 0.5 MG/0.5 ML SYRINGE IVPUSH ×2 (12:02→13:49)
[2023-05-04 12:09] LABS: MANUAL DIFF FLAG NO
[2023-05-04 12:11] LABS: Basophils Absolute Auto 0.1 X10*3/uL (0.0-0.2); Basophils Percent Auto 0.3 % (0-2); Eosinophils Absolute Auto 0.1 X10*3/uL (0.0-0.4); Eosinophils Percent Auto 0.6 % (0-4); Hematocrit 33.2 % (37.0-47.0); Hemoglobin 10.9 g/dl (12.0-16.0); Imm Gran Abs Auto 0.14 X10*3/uL (0.00-0.03); Imm Gran Pct Auto 0.7 % (0.0-0.4); Lymphocytes Absolute Auto 3.1 X10*3/uL (1.2-4.9); Lymphocytes Percent Auto 14.5 % (20-40); Mean Corpuscular HGB Conc 32.8 g/dl (31.0-35.0); Mean Corpuscular Hemoglobin 27.5 pg (27.0-33.0); Mean Corpuscular Volume 83.6 fL (80.0-98.0); Mean Platelet Volume 8.6 fL (9.4-12.3); Monocytes Absolute Auto 1.3 X10*3/uL (0.1-1.2); Monocytes Percent Auto 6.3 % (2-11); Neutrophils Absolute Auto 16.5 x10*3/uL (2.0-8.3); Neutrophils Percent Auto 77.6 % (45-73); Platelet Count 461 X10*3/uL (160-400); Red Blood Count 3.97 X10*6/uL (4.20-5.50); Red Cell Distribution Width 13.7 % (11.0-16.0); White Blood Count 21.2 X10*3/uL (4.8-10.8)
--- NOTE | 2023-05-04 12:53 | PC.NURSE ---
Pt A/OX4, VSS, pt reports 9/10 abd pain improved to 7/10 with dilaudid. Pt states no BM X6 weeks, decreased PO intake, nausea and diarrhea. 22G PIV placed R wrist, labs obtained, pt to ct awaiting results.
[2023-05-04 13:35] LABS: Appearance Urine Turbid; Color Urine Yellow; Glucose Urine UA Negative (Negative); Leukocyte Esterase Urine Large (3+) (Negative); Nitrite Urine Positive (Negative); PH 5.5 (5.0-9.0); UMIC TRIGGER UACC YES; Urine Blood Large (3+) (Negative); Urine Ketones 15 mg/dL (Negative); Urine Protein 300 (3+) mg/dL (Neg-Trace)
[2023-05-04 13:42] LABS: Bacteria Urine 4+ (None Seen); RBC Urine >20 /HPF (0-2); Squamous Epithelial Cell Urine >20 /HPF (0-2); UACC Culture Trigger YES; WBC Clumps Urine Present; WBC Urine >50 /HPF (0-5)
[2023-05-04 13:49] LABS: Alanine Aminotransferase 11 U/L (0-31); Albumin Level 2.9 g/dL (3.5-5.0); Alkaline Phosphatase 93 U/L (39-117); Anion Gap 15 (12-20); Aspartate Amino Transferase 15 U/L (5-31); Bilirubin Direct 0.1 mg/dL (0.0-0.5); Bilirubin Total 0.3 mg/dL (0.0-1.0); Blood Urea Nitrogen 19 mg/dL (9-16); Calcium 8.9 mg/dL (8.4-10.2); Carbon Dioxide 26 mmol/L (22-29); Chloride 97 mmol/L (96-108); Creatinine Clr Calc Pharmacy 75.7; Estimated Glomerular Filt Rate > 60; Glucose Random 80 mg/dL (60-115); Magnesium 2.2 mg/dL (1.6-2.6); Potassium 3.2 mmol/L (3.3-5.1); Sodium 135 mmol/L (135-145); Total Protein 7.1 g/dL (6.5-8.0)
[2023-05-04] MEDS: cefEPime HCl 2 GM in 0.9 % Sodium Chloride 50 ML IV (13:50)
[2023-05-04 14:00] LABS: Lactic Acid 1.1 mmol/L (0.5-2.0)
[2023-05-04 14:18] VITALS: BP 108/46; PULSE 79; RESP 16; TEMP 36.8; O2SAT 95
--- NOTE | 2023-05-04 14:19 | PM.HPGS ---
History of Present Illness History of Present Illness Date of Service: 05/04/23 <Gabi Victoria PA-C - Last Filed: 05/04/23 14:55> 05/04/23 <Jack Quan MD - Last Filed: 05/04/23 16:17> Chief complaint: Sigmoid Diverticulitis w/Abscess <Gabi Victoria PA-C - Last Filed: 05/04/23 14:55> Narrative: Kia Phelps is a 63 year old female with PMH of GERD and barretts esophagus, hypertension, hyperlipidemia who presents with severe lower abdominal pain. Patient reports this has been going on for the last month. She was seen in the ED earlier this month and was diagnosed with constipation and treated with stool softeners. She had a follow up with GI on 04/26/23 and diagnosed with IBS with constipation. She reports the pain has not improved at all since she was seen and progressively worsened. The pain became so severe she presented to the ED. She reports the pain is mostly on the lower left abdomen and pelvic area. The pain has been associated with anorexia and she endorses a 20 lbs weight loss over the past month. She denies nausea, vomiting, fevers or chills. She reports she has only had very small bowel movements over the past few weeks. She has a history of sigmoid diverticulitis with multiple episodes per year for the past 10 years and have been treated with PO antibiotics. Last episode was in December of this year. Last colonoscopy was in January 2019 and showed diverticulosis, two tubular adenomas. Work up in the ED included CBC, BMP, LFTs which was significant for WBC count of 21.2 and H/H of 10.9/33.2. CT scan abd/pelvis showed marked wall thickening of the sigmoid colon with pericolonic stranding with an associated fluid collection in the midline pelvis. There was focal wall thickening at the bladder dome in direct contiguity with a collection containing gas and fluid measuring 3.6 x 3.9 x 3.7 cm. UA positive for nitrites and WBC. She continues to report severe lower abdominal pain. She denies dysuria, fecaluria, pneumaturia. <Gabi Victoria PA-C - Last Filed: 05/04/23 14:55> Review of Systems Constitutional: Constitutional: Reports anorexia, Denies chills, Denies fever(s) and Reports weight loss <Gabi Victoria PA-C - Last Filed: 05/04/23 14:55> ENT: Denies dizziness <Gabi Victoria PA-C Last Filed: 05/04/23 14:55> Cardiovascular: Cardiovascular: Denies chest pain, Denies palpitations and Denies dyspnea <Gabi Victoria PA-C - Last Filed: 05/04/23 14:55> Respiratory: Respiratory: Denies dyspnea <Gabi Victoria PA-C - Last Filed: 05/04/23 14:55> Gastrointestinal: Gastrointestinal: Reports as per HPI <Gabi Victoria PA-C Last Filed: 05/04/23 14:55> Genitourinary: Genitourinary: Reports as per HPI <Gabi Victoria PA-C Last Filed: 05/04/23 14:55> Integumentary/Breasts: Skin/Breast: Denies rash and Denies jaundice <Gabi Victoria PA-C Last Filed: 05/04/23 14:55> Neurologic: Denies dizziness <Gabi Victoria PA-C Last Filed: 05/04/23 14:55> Endocrine: Endocrine: Denies palpitations <Gabi Victoria PA-C Last Filed: 05/04/23 14:55> PMFSH Past Medical History Medical History: Medical History (Updated 05/04/23 @ 14:39 by Gabi Victoria PA-C) Barretts esophagus GERD (gastroesophageal reflux disease) Hypertension <Gabi Victoria PA-C - Last Filed: 05/04/23 14:55> Family History Family History: Family History Father Colon cancer Paternal Aunt Colon cancer <Gabi Victoria PA-C - Last Filed: 05/04/23 14:55> Surgical History Surgical History: Surgical History History of esophagogastroduodenoscopy (EGD) Hx of colonoscopy <Gabi Victoria PA-C - Last Filed: 05/04/23 14:55> Social History Social History: Social History Alcohol intake: never Patient Tobacco Use Status: Current everyday Tobacco user Cigarettes Per Day: 8 Smoked in Last 30 Days: Yes Use of substances other than those prescribed or required for medical reasons: Yes Substance Use Type: Marijuana Substance Use Frequency: Daily Advance Directives: No Patient : No <Gabi Victoria PA-C - Last Filed: 05/04/23 14:55> Meds Allergies/Adverse reactions: Allergies Allergy/AdvReac Type Severity Reaction Status Date / Time amoxicillin [Augmentin] Allergy Unknown GI, Verified 05/03/23 16:29 Difficulty breathing clavulanic acid [Augmentin] Allergy Unknown GI, Verified 05/03/23 16:29 Difficulty breathing codeine [CODEINE] Allergy Unknown SENSITIVIT Verified 05/03/23 16:29 Y erythromycin base Allergy Unknown GI, DIFF Verified 05/03/23 16:29 [Erythromycin Base] BREATHING NSAIDS (Non-Steroidal Allergy Unknown GI UPSET Verified 05/03/23 16:29 Anti-Inflamma [NSAIDS (NON-STEROIDAL ANTI-INFLAMMA] shellfish derived Allergy Unknown Sensitivity Verified 05/03/23 16:29 Sulfa (Sulfonamide Allergy Unknown RASH Verified 05/03/23 16:29 Antibiotics) morphine [MORPHINE] AdvReac Severe NAUSEA Verified 05/03/23 16:29 aspirin [Aspirin] AdvReac Mild STOMACH Verified 05/03/23 16:29 UPSET <Gabi Victoria PA-C - Last Filed: 05/04/23 14:55> Active Medications: Current Medications Acetaminophen (Acetaminophen 325 Mg Tablet) 650 mg PO Q6H PRN PRN Reason: Pain, Mild (Pain Scale 1-3) Hydromorphone HCl (Hydromorphone Hcl 1 Mg/Ml Syringe) 0.5 mg IVPUSH Q4H PRN; Protocol PRN Reason: Pain, Severe (Pain Scale 7-10) Metronidazole (Flagyl) 500 mg in 100 mls @ 100 mls/hr IV ONCE ONE Stop: 05/04/23 14:19 Sodium Chloride (Ns) 1,000 mls @ 999 mls/hr IV .Q1H1M ARISTIDES Stop: 05/04/23 14:30 Metronidazole (Flagyl) 500 mg in 100 mls @ 100 mls/hr IV Q6H ARISTIDES Levofloxacin (Levaquin) 500 mg in 100 mls @ 100 mls/hr IV Q24H ARISTIDES Potassium Chloride/Sodium Chloride (Kcl 20 Meq In 0.9 % Sodium Chl) 20 meq in 1,000 mls @ 100 mls/hr IVCONT .Q10H ARISTIDES Ondansetron HCl (Ondansetron Hcl 4 Mg/2 Ml Vial) 4 mg IVPUSH Q8H PRN PRN Reason: Nausea and Vomiting Oxycodone HCl (Oxycodone Hcl Immed Release 5 Mg Tablet) 5 mg PO Q4H PRN PRN Reason: Pain, Moderate(Pain Scale 4-6) Sodium Chloride (0.9 % Sodium Chloride Flush 3 Ml Syringe) 3 ml IVFLUSH QSHIFT ARISTIDES <Gabi Victoria PA-C - Last Filed: 05/04/23 14:55> Home medications: Home Medications Medication Instructions Recorded Confirmed Last Taken Type amlodipine 5 mg tablet 5 mg PO DAILY 03/01/23 05/04/23 05/04/23 History atorvastatin 20 mg tablet 20 mg PO DAILY 03/01/23 05/04/23 05/04/23 History esomeprazole magnesium 40 mg 40 mg PO DAILY 03/01/23 05/04/23 05/04/23 History capsule,delayed release (Nexium) hydrochlorothiazide 25 mg tablet 25 mg PO DAILY 03/01/23 05/04/23 05/04/23 History lisinopril 30 mg tablet 30 mg PO DAILY 03/01/23 05/04/23 05/04/23 History metoprolol succinate 100 mg 150 mg PO DAILY 03/01/23 05/04/23 05/04/23 History tablet,extended release 24 hr trazodone 100 mg tablet 200 mg PO BEDTIME 03/01/23 05/04/23 05/03/23 History calcium carbonate 500 mg calcium 500 mg PO DAILY 05/04/23 05/04/23 05/04/23 History (1,250 mg) tablet multivitamin 1 tab PO DAILY 05/04/23 05/04/23 05/04/23 History <Gabi Victoria PA-C - Last Filed: 05/04/23 14:55> Physical Exam Vital Signs: Vital Signs: Last Vital Signs Temp 98.3 F 05/04/23 14:18 Pulse 79 05/04/23 14:18 Resp 16 05/04/23 14:18 BP 108/46 L 05/04/23 14:18 Pulse Ox 95 05/04/23 14:18 O2 Del Method Room Air 05/04/23 14:18 BMI result Body Mass Index 28.4 <Gabi Victoria PA-C Last Filed: 05/04/23 14:55> Const: General: comfortable, no acute distress and alert <[facility] Last Filed: 05/04/23 14:55> Orientation/consciousness: patient oriented x3 <YSABEL Wilder Last Filed: 05/04/23 14:55> Resp: Effort & Inspection: normal respiratory effort <YSABEL Wilder Last Filed: 05/04/23 14:55> Cardio: Rate: regular rate <YSABEL Wilder Last Filed: 05/04/23 14:55> Rhythm: regular rhythm <YSABEL Wilder Last Filed: 05/04/23 14:55> GI: Inspection: Yes normal to inspection and No distended <YSABEL Wilder Last Filed: 05/04/23 14:55> Palpation (GI): Soft to palpation, Tenderness to palpation present (GI) in the LLQ, suprapubicly and with rebound tenderness, no guarding and not rigid <YSABEL Wilder Last Filed: 05/04/23 14:55> Percussion: Yes normal to percussion <YSABEL Wilder Last Filed: 05/04/23 14:55> Skin: General skin exam: no rashes or lesions noted <Gabi Victoria PA-C Last Filed: 05/04/23 14:55> Neuro: General: patient oriented x3 and moves all extremities <Gabi Victoria PA-C [employer] Last Filed: 05/04/23 14:55> Results Results Labs: Short CBC 08/31/23 Range/Units 11:59 WBC 21.2 H (4.8-10.8) X10*3/uL Hgb 10.9 L (12.0-16.0) g/dl Hct 33.2 L (37.0-47.0) % Plt Count 461 H D (160-400) X10*3/uL BMP 05/04/23 13:16 Sodium 135 Potassium 3.2 L Chloride 97 Carbon Dioxide 26 BUN 19 H Creatinine 0.69 Calcium 8.9 Liver Function 05/04/23 Range/Units 13:16 Total Bilirubin 0.3 (0.0-1.0) mg/dL Direct Bilirubin 0.1 (0.0-0.5) mg/dL AST 15 (5-31) U/L ALT 11 (0-31) U/L Alkaline Phosphatase 93 (39-117) U/L Albumin 2.9 L (3.5-5.0) g/dL Urine 05/04/23 Range/Units 13:27 Urine Color Yellow Urine Appearance Turbid Urine pH 5.5 (5.0-9.0) Ur Specific [place] 1.020 (1.005-1.025) Urine Protein 300 (3+) H (Neg-Trace) mg/dL Urine Glucose (UA) Negative (Negative) mg/dL <STAN Wilder Last Filed: 05/04/23 14:55> Abdomen CT scan report/results: report reviewed and image reviewed <Gabi Victoria PA-C - Last Filed: 05/04/23 14:55> Assessment and Plan (1) Colonic diverticular abscess: Status: Acute <STAN Wilder Last Filed: 05/04/23 14:55> Kia Phelps is a 63 year old female with PMH of GERD and barretts esophagus, hypertension, hyperlipidemia with hx of multiple episodes of sigmoid diverticulitis who presented to the ED with 1 month history of lower abdominal pain that acutely worsened in severity, leukocytosis and CT scan showing sigmoid diverticulitis with large fluid collection with possible colovesical fistula. The patient was admitted to the surgical service for further treatment of the diverticular abscess. IR drainage has been requested. She was started on IV flagyl and levaquin, IVF with PRN analgesics as needed. She may have a small locule of air in the bladder to suggest colovesical fistula but denies any urinary symptoms however she does have a UTI. Given her recurrent episodes and question of colovesical fistula, recommended to proceed with resection of the diseased colon, possible repair of the fistula, however if this were necessary during this hospital stay colostomy would likely be necessary. She would very much like to avoid this. Further plan dependent on clinical course. <Gabi Victoria PA-C - Last Filed: 05/04/23 14:55> Time Spent With Patient Time: Total time managing care of this patient today ____ minutes. <Gabi Victoria PA-C - Last Filed: 05/04/23 14:55> Quality Stroke Does the patient have a stroke diagnosis?: No <Jack Quan MD - Last Filed: 05/04/23 16:17> VTE Prior VTE?: No <Jack Quan MD - Last Filed: 05/04/23 16:17> VTE Risk Level:: Medical - moderate - high <Gabi Victoria PA-C - Last Filed: 05/04/23 14:55> VTE Device Contraindication: N/A - Device Ordered <Gabi Victoria PA-C - Last Filed: 05/04/23 14:55> VTE Drug Contraindication: N/A - Med Ordered <Gabi Victoria PA-C - Last Filed: 05/04/23 14:55> Procedures Date of Service Date of Service: 05/04/23 <Gabi Vitcoria PA-C - Last Filed: 05/04/23 14:55> 05/04/23 <Jack Quan MD - Last Filed: 05/04/23 16:17>
[2023-05-04] MEDS: metroNIDAZOLE/NS 500 MG/100 ML PIGGYBACK 100 MG IV ×2 (14:23→19:32)
[2023-05-04] MEDS: 0.9 % Sodium Chloride 1,000 ML 999 ML IV (14:24)
--- NOTE | 2023-05-04 14:33 | PHA.MEDREC ---
Pharmacy Consult ? Medication Reconciliation Pharmacy has completed the medication reconciliation. Patient confirmed medications. Reports the lubpristone was not approved by insurance so she is not taking it. Jessy Comer, AmyD
[2023-05-04] MEDS: levoFLOXacin/D5W 500 MG/100 ML PIGGYBACK 100 MG IV (15:40)
[2023-05-04 15:41] VITALS: BP 118/48; PULSE 80; RESP 16; O2SAT 95
[2023-05-04 15:48] LABS: INTERNATIONAL NORM RATIO 1.3 (0.9-1.1); Prothrombin Time 15.2 SEC (11.1-13.3)
[2023-05-04] MEDS: KCl 20 mEq in 0.9 % Sodium ChL 20 MEQ/1,000 ML IV.SOLN 100 MEQ IVCONT (16:37)
--- NOTE | 2023-05-04 16:42 | PC.NURSE ---
RN to RN report given to Michelle
[2023-05-04 17:23] VITALS: BP 121/60; PULSE 80; RESP 20; TEMP 36.6; O2SAT 97
[2023-05-04] MEDS: HYDROmorphone HCl 1 MG/ML SYRINGE 0.5 MG IVPUSH ×2 (17:48→22:41)
[2023-05-04 19:27] VITALS: BP 104/55; PULSE 80; RESP 20; TEMP 36; O2SAT 96
[2023-05-04] MEDS: 0.9 % Sodium Chloride Flush 3 ML SYRINGE IVFLUSH (19:33)
--- NOTE | 2023-05-04 23:22 | PC.NURSE ---
Pt in room 383 takes 200mg PO Trazadone at bedtime, she has an IR adcess drainage tomorrow. Pt is strict about her NPO diet and doesnt want to take her PO trazadone because she doesnt want to drink liquids even if its a sip of water. Pt asked for IV ativan instead. Dr. Quan was notified at 11:09 pm. He oredered pt 0.4 mg of ativan qhs prn.
[2023-05-05] VITALS (9 sets, daily range): BP systolic 106–127; BP diastolic 52–67; PULSE 73–100; RESP 14–20; TEMP 36.6–37.2; O2SAT 94–97
[2023-05-05] MEDS: ondansetron HCL 4 MG/2 ML VIAL IVPUSH ×3 (01:08→20:44)
[2023-05-05] MEDS: metroNIDAZOLE/NS 500 MG/100 ML PIGGYBACK 100 MG IV ×4 (01:55→20:44)
[2023-05-05] MEDS: LORazepam 2 MG/ML VIAL 0.5 MG IVPUSH (02:43)
[2023-05-05] MEDS: KCl 20 mEq in 0.9 % Sodium ChL 20 MEQ/1,000 ML IV.SOLN 100 MEQ IVCONT ×2 (02:47→17:30)
[2023-05-05 06:19] LABS: MANUAL DIFF FLAG NO
[2023-05-05 06:23] LABS: Basophils Absolute Auto 0.1 X10*3/uL (0.0-0.2); Basophils Percent Auto 0.3 % (0-2); Eosinophils Absolute Auto 0.1 X10*3/uL (0.0-0.4); Eosinophils Percent Auto 0.8 % (0-4); Hematocrit 29.2 % (37.0-47.0); Hemoglobin 9.2 g/dl (12.0-16.0); Imm Gran Abs Auto 0.13 X10*3/uL (0.00-0.03); Imm Gran Pct Auto 0.8 % (0.0-0.4); Lymphocytes Percent Auto 12.6 % (20-40); Mean Corpuscular HGB Conc 31.5 g/dl (31.0-35.0); Mean Corpuscular Hemoglobin 27.3 pg (27.0-33.0); Mean Corpuscular Volume 86.6 fL (80.0-98.0); Mean Platelet Volume 8.7 fL (9.4-12.3); Monocytes Absolute Auto 1.2 X10*3/uL (0.1-1.2); Monocytes Percent Auto 7.8 % (2-11); Neutrophils Absolute Auto 12.3 x10*3/uL (2.0-8.3); Neutrophils Percent Auto 77.7 % (45-73); Platelet Count 407 X10*3/uL (160-400); Red Blood Count 3.37 X10*6/uL (4.20-5.50); Red Cell Distribution Width 13.8 % (11.0-16.0); White Blood Count 15.9 X10*3/uL (4.8-10.8)
[2023-05-05 06:39] LABS: Anion Gap 15 (12-20); Blood Urea Nitrogen 9 mg/dL (9-16); Calcium 8.2 mg/dL (8.4-10.2); Carbon Dioxide 22 mmol/L (22-29); Chloride 105 mmol/L (96-108); Creatinine Clr Calc Pharmacy 95.9; Estimated Glomerular Filt Rate > 60; Glucose Random 78 mg/dL (60-115); Sodium 139 mmol/L (135-145)
[2023-05-05] MEDS: lisinopriL 10 MG TABLET 30 MG PO (08:07)
[2023-05-05] MEDS: Atorvastatin Calcium 20 MG TABLET PO (08:08)
[2023-05-05] MEDS: Metoprolol Succinate ER 50 MG TAB.ER.24H 150 MG PO (08:08)
[2023-05-05] MEDS: amLODIPine Besylate 5 MG TABLET PO (08:08)
--- NOTE | 2023-05-05 08:10 | PM.PNGS ---
Subjective Subjective Date of Service: 05/05/23 Interval history: Feels wretched this morning. Continues to c/o pain, some what relieved by IV dilaudid. Had some nausea last night too. Physical Exam Vital Signs: Vital Signs: Last Vital Signs Temp 98.4 F 05/05/23 07:15 Pulse 82 05/05/23 07:15 Resp 16 05/05/23 07:15 BP 127/52 L 05/05/23 07:15 Pulse Ox 97 05/05/23 07:15 O2 Del Method Room Air 05/05/23 07:15 BMI result Body Mass Index 30.0 Const: General: comfortable, no acute distress and alert Orientation/consciousness: patient oriented x3 Resp: Effort & Inspection: normal respiratory effort GI: Inspection: No distended Palpation (GI): Soft to palpation, Tenderness to palpation present (GI) (lower abdomen, marked at LLQ/suprapubic), no guarding and not rigid Percussion: Yes normal to percussion Skin: General skin exam: no rashes or lesions noted Neuro: General: patient oriented x3 and moves all extremities Objective Data Active Medications Acetaminophen (Acetaminophen 325 Mg Tablet) 650 mg PO Q6H PRN PRN Reason: Pain, Mild (Pain Scale 1-3) Amlodipine Besylate (Amlodipine Besylate 5 Mg Tablet) 5 mg PO DAILY [facility]; Protocol Atorvastatin Calcium (Atorvastatin Calcium 20 Mg Tablet) 20 mg PO DAILY [facility] Hydromorphone HCl (Hydromorphone Hcl 1 Mg/Ml Syringe) 0.5 mg IVPUSH Q4H PRN; Protocol PRN Reason: Pain, Severe (Pain Scale 7-10) Last Admin: 05/04/23 22:41 Dose: 0.5 mg Documented By: BHAVIK Potassium Chloride/Sodium Chloride (Kcl 20 Meq In 0.9 % Sodium Chl) 20 meq in 1,000 mls @ 100 mls/hr IVCONT .Q10H [facility] Last Admin: 05/05/23 02:47 Dose: 100 mls/hr Documented By: BHAVIK Metronidazole (Flagyl) 500 mg in 100 mls @ 100 mls/hr IV Q6H [facility] Last Infusion: 05/05/23 03:01 Dose: 0 mls/hr Documented By: BHAVIK Levofloxacin (Levaquin) 500 mg in 100 mls @ 100 mls/hr IV Q24H [facility] Last Infusion: 05/04/23 16:40 Dose: 0 mls/hr Documented By: LUZ Potassium Chloride (Potassium Chloride/H20) 10 meq in 100 mls @ 100 mls/hr IV Q1H [facility] Stop: 05/05/23 09:44 Lisinopril (Lisinopril 10 Mg Tablet) 30 mg PO DAILY [facility]; Protocol Metoprolol Succinate (Metoprolol Succinate Er 50 Mg Tab.Er.24h) 150 mg PO DAILY [facility]; Protocol Omeprazole (Omeprazole 20 Mg Capsule.Dr) 20 mg PO DAILY@0630 [facility] Ondansetron HCl (Ondansetron Hcl 4 Mg/2 Ml Vial) 4 mg IVPUSH Q8H PRN PRN Reason: Nausea and Vomiting Last Admin: 05/05/23 01:08 Dose: 4 mg Documented By: BHAVIK Oxycodone HCl (Oxycodone Hcl Immed Release 5 Mg Tablet) 5 mg PO Q4H PRN PRN Reason: Pain, Moderate(Pain Scale 4-6) Sodium Chloride (0.9 % Sodium Chloride Flush 3 Ml Syringe) 3 ml IVFLUSH QSHIFT [facility] Last Admin: 05/04/23 19:33 Dose: 3 ml Documented By: BHAVIK Trazodone HCl (Trazodone Hcl 100 Mg Tablet) 200 mg PO BEDTIME [facility] Labs 05/05/23 05:59 05/05/23 05:59 Labs: Laboratory Results - last 24 hr 05/04/23 05/04/23 05/04/23 11:59 13:16 13:27 MCV 83.6 MCH 27.5 MCHC 32.8 RDW 13.7 Plt Count 461 H D MPV 8.6 L Immature Gran % (Auto) 0.7 H Neut % (Auto) 77.6 H Lymph % (Auto) 14.5 L [place] % (Auto) 6.3 Eos % (Auto) 0.6 Baso % (Auto) 0.3 Lymph # (Auto) 3.1 [place] # (Auto) 1.3 H Eos # (Auto) 0.1 Baso # (Auto) 0.1 Abs Immat Gran (auto) 0.14 H Absolute Neuts (auto) 16.5 H Absolute Nucleated RBC 0.000 Nucleated RBC % (auto) 0.0 PT INR Anion Gap 15 Estim Creat Clear Calc 75.7 Estimated GFR > 60 Random Glucose 80 Lactic Acid Calcium 8.9 Magnesium 2.2 Total Bilirubin 0.3 Direct Bilirubin 0.1 AST 15 ALT 11 Alkaline Phosphatase 93 Total Protein 7.1 Albumin 2.9 L Urine Color Yellow Urine Appearance Turbid Urine pH 5.5 Ur Specific [place] 1.020 Urine Protein 300 (3+) H Urine Glucose (UA) Negative Urine Ketones 15 Urine Blood Large (3+) H Urine Nitrite Positive H Ur Leukocyte Esterase Large (3+) H Urine RBC >20 H Urine WBC >50 H Urine WBC Clumps Present Ur Squamous Epith Cells >20 Urine Bacteria 4+ Hyaline Casts 3-5 05/04/23 05/04/23 05/05/23 13:44 15:37 05:59 MCV 86.6 MCH 27.3 MCHC 31.5 RDW 13.8 Plt Count 407 H MPV 8.7 L Immature Gran % (Auto) 0.8 H Neut % (Auto) 77.7 H Lymph % (Auto) 12.6 L [place] % (Auto) 7.8 Eos % (Auto) 0.8 Baso % (Auto) 0.3 Lymph # (Auto) 2.0 [place] # (Auto) 1.2 Eos # (Auto) 0.1 Baso # (Auto) 0.1 Abs Immat Gran (auto) 0.13 H Absolute Neuts (auto) 12.3 H Absolute Nucleated RBC 0.000 Nucleated RBC % (auto) 0.0 PT 15.2 H INR 1.3 H Anion Gap Estim Creat Clear Calc Estimated GFR Random Glucose Lactic Acid 1.1 Calcium Magnesium Total Bilirubin Direct Bilirubin AST ALT Alkaline Phosphatase Total Protein Albumin Urine Color Urine Appearance Urine pH Ur Specific [place] Urine Protein Urine Glucose (UA) Urine Ketones Urine Blood Urine Nitrite Ur Leukocyte Esterase Urine RBC Urine WBC Urine WBC Clumps Ur Squamous Epith Cells Urine Bacteria Hyaline Casts 05/05/23 05:59 MCV MCH MCHC RDW Plt Count MPV Immature Gran % (Auto) Neut % (Auto) Lymph % (Auto) [place] % (Auto) Eos % (Auto) Baso % (Auto) Lymph # (Auto) [place] # (Auto) Eos # (Auto) Baso # (Auto) Abs Immat Gran (auto) Absolute Neuts (auto) Absolute Nucleated RBC Nucleated RBC % (auto) PT INR Anion Gap 15 Estim Creat Clear Calc 95.9 Estimated GFR > 60 Random Glucose 78 Lactic Acid Calcium 8.2 L D Magnesium Total Bilirubin Direct Bilirubin AST ALT Alkaline Phosphatase Total Protein Albumin Urine Color Urine Appearance Urine pH Ur Specific [place] Urine Protein Urine Glucose (UA) Urine Ketones Urine Blood Urine Nitrite Ur Leukocyte Esterase Urine RBC Urine WBC Urine WBC Clumps Ur Squamous Epith Cells Urine Bacteria Hyaline Casts Procedures Date of Service Date of Service: 05/05/23 Progress Note: A&P Assessment and plan (1) Colonic diverticular abscess: Status: Acute Plan 63 year old female admitted with diverticular abscess, possible colovesical fistula. IR drainage planned for this morning. Continue IV flagyl, levaquin, IVF and pain control. Hypokalemia- IV repletion. WBC count improving. Time Spent With Patient Time: Total time managing care of this patient today ____ minutes. Quality Stroke Does the patient have a stroke diagnosis?: No VTE Prior VTE?: No VTE Risk Level:: Medical - moderate - high VTE Device Contraindication: N/A - Device Ordered VTE Drug Contraindication: N/A - Med Ordered
[2023-05-05] MEDS: Omeprazole 20 MG CAPSULE.DR PO (08:18)
[2023-05-05 08:25] LABS: Magnesium 1.8 mg/dL (1.6-2.6)
[2023-05-05] MEDS: HYDROmorphone HCl 1 MG/ML SYRINGE 0.5 MG IVPUSH ×2 (10:23→16:50)
--- NOTE | 2023-05-05 13:59 | MHC.CLN ---
NUTRITION CONSULT FOR WEIGHT LOSS AND POOR PO. CURRENTLY NPO FOR PROCEDURE. REVIEW OF WEIGHT HX SHOWS NO SIGNIFICANT WEIGHT CHANGE X [address] TO MONITOR FOR DIET ADVANCEMENT AND INTAKE.
--- NOTE | 2023-05-05 15:41 | PM.EVENT ---
Event Note Date of Service: 05/05/23 Event Note: Radiology called status post IR requesting orders for Gram stain, culture and peritoneal fluid creatinine level since it appears the patient has a urinoma. See orders. Time Spent With Patient Time: Total time managing care of this patient today ____ minutes.
[2023-05-05] MEDS: levoFLOXacin/D5W 500 MG/100 ML PIGGYBACK 100 MG IV (17:20)
[2023-05-05] MEDS: Potassium Chloride/H20 10 MEQ/100 ML PIGGYBACK 100 MEQ IV ×2 (18:25→19:36)
[2023-05-05] MEDS: traZODone HCL 100 MG TABLET 200 MG PO (20:45)
[2023-05-06] MEDS: HYDROmorphone HCl 1 MG/ML SYRINGE 0.5 MG IVPUSH ×4 (01:17→20:17)
[2023-05-06] MEDS: metroNIDAZOLE/NS 500 MG/100 ML PIGGYBACK 100 MG IV ×4 (02:29→22:09)
[2023-05-06 03:02] VITALS: BP 105/73; PULSE 70; RESP 20; TEMP 36.1; O2SAT 92
[2023-05-06] MEDS: Omeprazole 20 MG CAPSULE.DR PO (05:43)
[2023-05-06 06:21] LABS: MANUAL DIFF FLAG NO
[2023-05-06 06:26] LABS: Basophils Percent Auto 0.3 % (0-2); Eosinophils Absolute Auto 0.2 X10*3/uL (0.0-0.4); Eosinophils Percent Auto 1.8 % (0-4); Hematocrit 27.6 % (37.0-47.0); Hemoglobin 8.8 g/dl (12.0-16.0); Imm Gran Pct Auto 0.8 % (0.0-0.4); Lymphocytes Percent Auto 15.6 % (20-40); Mean Corpuscular HGB Conc 31.9 g/dl (31.0-35.0); Mean Corpuscular Hemoglobin 27.5 pg (27.0-33.0); Mean Corpuscular Volume 86.3 fL (80.0-98.0); Mean Platelet Volume 8.7 fL (9.4-12.3); Monocytes Absolute Auto 1.1 X10*3/uL (0.1-1.2); Neutrophils Absolute Auto 9.1 x10*3/uL (2.0-8.3); Neutrophils Percent Auto 72.5 % (45-73); Platelet Count 396 X10*3/uL (160-400); Red Cell Distribution Width 13.7 % (11.0-16.0); White Blood Count 12.6 X10*3/uL (4.8-10.8)
[2023-05-06 06:36] LABS: Anion Gap 14 (12-20); Blood Urea Nitrogen 5 mg/dL (9-16); Carbon Dioxide 23 mmol/L (22-29); Chloride 107 mmol/L (96-108); Creatinine Clr Calc Pharmacy 111.9; Estimated Glomerular Filt Rate > 60; Glucose Fasting 83 mg/dL (60-99); Potassium 3.2 mmol/L (3.3-5.1); Sodium 141 mmol/L (135-145)
[2023-05-06] MEDS: KCl 20 mEq in 0.9 % Sodium ChL 20 MEQ/1,000 ML IV.SOLN 100 MEQ IVCONT ×2 (06:49→17:46)
[2023-05-06 07:52] VITALS: BP 120/58; PULSE 72; RESP 19; TEMP 36.2; O2SAT 95
[2023-05-06] MEDS: amLODIPine Besylate 5 MG TABLET PO (08:10)
[2023-05-06] MEDS: Atorvastatin Calcium 20 MG TABLET PO (08:10)
[2023-05-06] MEDS: Metoprolol Succinate ER 50 MG TAB.ER.24H 150 MG PO (08:10)
[2023-05-06] MEDS: lisinopriL 10 MG TABLET 30 MG PO (08:10)
--- NOTE | 2023-05-06 09:46 | PM.PNGS ---
Subjective Subjective Date of Service: 05/06/23 Patient reports: no new complaints, still having pain, tolerating liquids well, flatus and bowel movement Interval history: The patient is seen in coverage for Dr. Quan She reports that she feels a little better and is having a significant amount of gas but no pneumaturia. She denies any chest pain, difficulty breathing, shortness of breath and is tolerating liquids. She is requesting simethicone and that her diet be advanced. She also asked when she would be discharged. Explained that given the need to await cultures, she would be in through the holiday weekend. Physical Exam Vital Signs: Vital Signs: Last Vital Signs Temp 97.1 F 05/06/23 07:52 Pulse 72 05/06/23 07:52 Resp 19 05/06/23 07:52 BP 120/58 L 05/06/23 07:52 Pulse Ox 95 05/06/23 07:52 O2 Del Method Room Air 05/06/23 07:52 BMI result Body Mass Index 30.0 On exam she is nontoxic She is in no acute respiratory distress Her abdomen is obese and soft with mild suprapubic and left lower quadrant tenderness Drain shows thick blood-tinged material Objective Data Active Medications Acetaminophen (Acetaminophen 325 Mg Tablet) 650 mg PO Q6H PRN PRN Reason: Pain, Mild (Pain Scale 1-3) Amlodipine Besylate (Amlodipine Besylate 5 Mg Tablet) 5 mg PO DAILY [facility]; Protocol Last Admin: 05/06/23 08:10 Dose: 5 mg Documented By: CIRO Atorvastatin Calcium (Atorvastatin Calcium 20 Mg Tablet) 20 mg PO DAILY [facility] [place] Last Admin: 05/06/23 08:10 Dose: 20 mg Documented By: CIRO Hydromorphone HCl (Hydromorphone Hcl 1 Mg/Ml Syringe) 0.5 mg IVPUSH Q4H PRN; Protocol PRN Reason: Pain, Severe (Pain Scale 7-10) Last Admin: 05/06/23 06:49 Dose: 0.5 mg Documented By: KARI Potassium Chloride/Sodium Chloride (Kcl 20 Meq In 0.9 % Sodium Chl) 20 meq in 1,000 mls @ 100 mls/hr IVCONT .Q10H [facility] Last Infusion: 05/06/23 08:53 Dose: 0 mls/hr Documented By: CIRO Metronidazole (Flagyl) 500 mg in 100 mls @ 100 mls/hr IV Q6H [facility] Last Infusion: 05/06/23 08:52 Dose: 0 mls/hr Documented By: CIRO Levofloxacin (Levaquin) 500 mg in 100 mls @ 100 mls/hr IV Q24H [facility] Last Infusion: 05/05/23 18:42 Dose: 0 mls/hr Documented By: JOAQUIN Lisinopril (Lisinopril 10 Mg Tablet) 30 mg PO DAILY [facility]; Protocol Last Admin: 05/06/23 08:10 Dose: 30 mg Documented By: CIRO Metoprolol Succinate (Metoprolol Succinate Er 50 Mg Tab.Er.24h) 150 mg PO DAILY [facility]; Protocol Last Admin: 05/06/23 08:10 Dose: 150 mg Documented By: CIRO Omeprazole (Omeprazole 20 Mg Capsule.Dr) 20 mg PO DAILY@0630 [facility] [place] Last Admin: 05/06/23 05:43 Dose: 20 mg Documented By: KARI Ondansetron HCl (Ondansetron Hcl 4 Mg/2 Ml Vial) 4 mg IVPUSH Q8H PRN PRN Reason: Nausea and Vomiting Last Admin: 05/05/23 20:44 Dose: 4 mg Documented By: KARI Oxycodone HCl (Oxycodone Hcl Immed Release 5 Mg Tablet) 5 mg PO Q4H PRN PRN Reason: Pain, Moderate(Pain Scale 4-6) Sodium Chloride (0.9 % Sodium Chloride Flush 3 Ml Syringe) 3 ml IVFLUSH QSHIFT [facility] Last Admin: 05/06/23 08:23 Dose: Not Given Documented By: CIRO Non-Admin Reason: IV Running Trazodone HCl (Trazodone Hcl 100 Mg Tablet) 200 mg PO BEDTIME [facility] Last Admin: 05/05/23 20:45 Dose: 200 mg Documented By: KARI Labs 05/06/23 05:40 05/06/23 05:40 Labs: Laboratory Results - last 24 hr 05/06/23 05/06/23 05:40 05:40 MCV 86.3 MCH 27.5 MCHC 31.9 RDW 13.7 Plt Count 396 MPV 8.7 L Immature Gran % (Auto) 0.8 H Neut % (Auto) 72.5 Lymph % (Auto) 15.6 L [place] % (Auto) 9.0 Eos % (Auto) 1.8 Baso % (Auto) 0.3 Lymph # (Auto) 2.0 [place] # (Auto) 1.1 Eos # (Auto) 0.2 Baso # (Auto) 0.0 Abs Immat Gran (auto) 0.10 H Absolute Neuts (auto) 9.1 H Absolute Nucleated RBC 0.000 Nucleated RBC % (auto) 0.0 Anion Gap 14 Estim Creat Clear Calc 111.9 Estimated GFR > 60 Fasting Glucose 83 Calcium 8.0 L Microbiology Microbiology Results: Microbiology 05/05/23 14:15 Gram Stain - Final Abscess Intra-abdominal Routine Culture - Preliminary No growth to date. Anaerobic Culture - Preliminary No growth to date. 05/04/23 13:44 Blood Culture - Preliminary Blood - Venous No growth after 24 hours. 05/04/23 13:44 Blood Culture - Preliminary Blood - Venous No growth after 24 hours. 05/04/23 Unknown Urine Culture - Final Urine clean catch - Urine otto top Procedures Date of Service Date of Service: 05/06/23 Progress Note: A&P Assessment and plan (1) Colonic diverticular abscess: Status: Acute (2) Perforated diverticulum: Status: Acute (3) Bladder fistula: Status: Acute Plan See orders Diet being advanced to fulls and protein supplements are added, simethicone ordered Await cultures speciation and sensitivities. Time Spent With Patient Time: Total time managing care of this patient today ____ minutes. Quality Stroke Does the patient have a stroke diagnosis?: No VTE Prior VTE?: No VTE Risk Level:: Medical - moderate - high VTE Device Contraindication: N/A - Device Ordered VTE Drug Contraindication: N/A - Med Ordered
[2023-05-06] MEDS: ondansetron HCL 4 MG/2 ML VIAL IVPUSH (15:51)
[2023-05-06 16:00] VITALS: BP 132/64; PULSE 77; RESP 20; TEMP 36.1; O2SAT 96
--- NOTE | 2023-05-06 16:03 | PC.NURSE ---
IV antibiotics re-timed due to loss of access. Resumed at 1600.
[2023-05-06] MEDS: 0.9 % Sodium Chloride Flush 3 ML SYRINGE IVFLUSH (16:18)
[2023-05-06] MEDS: Simethicone 80 MG TAB.CHEW 160 MG PO (17:42)
[2023-05-06] MEDS: levoFLOXacin/D5W 500 MG/100 ML PIGGYBACK 100 MG IV (17:47)
[2023-05-06 19:57] VITALS: BP 115/58; PULSE 68; RESP 20; TEMP 36.2; O2SAT 94
[2023-05-06] MEDS: traZODone HCL 100 MG TABLET 200 MG PO (20:17)
[2023-05-07] MEDS: HYDROmorphone HCl 1 MG/ML SYRINGE 0.5 MG IVPUSH ×5 (00:17→22:05)
[2023-05-07] MEDS: ondansetron HCL 4 MG/2 ML VIAL IVPUSH ×2 (00:17→13:20)
[2023-05-07 00:23] VITALS: BP 121/62; PULSE 74; RESP 19; TEMP 36.5; O2SAT 95
[2023-05-07] MEDS: metroNIDAZOLE/NS 500 MG/100 ML PIGGYBACK 100 MG IV ×3 (03:40→20:03)
[2023-05-07] MEDS: Omeprazole 20 MG CAPSULE.DR PO (05:33)
[2023-05-07] MEDS: KCl 20 mEq in 0.9 % Sodium ChL 20 MEQ/1,000 ML IV.SOLN 100 MEQ IVCONT ×2 (05:34→12:54)
[2023-05-07 07:41] VITALS: BP 108/60; PULSE 85; RESP 18; TEMP 36.3; O2SAT 97
[2023-05-07] MEDS: Metoprolol Succinate ER 50 MG TAB.ER.24H 150 MG PO (08:18)
[2023-05-07] MEDS: amLODIPine Besylate 5 MG TABLET PO (08:19)
[2023-05-07] MEDS: lisinopriL 10 MG TABLET 30 MG PO (08:19)
[2023-05-07] MEDS: Simethicone 80 MG TAB.CHEW 160 MG PO ×2 (08:19→17:36)
[2023-05-07] MEDS: Atorvastatin Calcium 20 MG TABLET PO (08:19)
[2023-05-07] MEDS: 0.9 % Sodium Chloride Flush 3 ML SYRINGE IVFLUSH (08:20)
--- NOTE | 2023-05-07 09:35 | P.PNGS_ITS ---
Subjective Subjective Date of Service: 05/07/23 Patient reports: no new complaints, tolerating liquids well, flatus and diarrhea Interval history: Patient is seen in coverage for Dr. Quan Anesthesiologist was able to obtain a right forearm IV yesterday. Patient notes that she is tolerating her liquids but having diarrhea. She denies any chest pain, difficulty breathing or shortness of breath. Physical Exam Vital Signs: Vital Signs: Last Vital Signs Temp 97.4 F 05/07/23 07:41 Pulse 85 05/07/23 07:41 Resp 18 05/07/23 07:41 BP 108/60 05/07/23 07:41 Pulse Ox 97 05/07/23 07:41 O2 Del Method Room Air 05/07/23 07:41 BMI result Body Mass Index 30.0 On exam she is in good spirits She is having no respiratory difficulty Abdomen is obese with continued suprapubic and left lower quadrant tenderness Objective Data Active Medications Acetaminophen (Acetaminophen 325 Mg Tablet) 650 mg PO Q6H PRN PRN Reason: Pain, Mild (Pain Scale 1-3) Amlodipine Besylate (Amlodipine Besylate 5 Mg Tablet) 5 mg PO DAILY [facility]; Protocol Last Admin: 05/07/23 08:19 Dose: 5 mg Documented By: CIRO Atorvastatin Calcium (Atorvastatin Calcium 20 Mg Tablet) 20 mg PO DAILY [facility] Last Admin: 05/07/23 08:19 Dose: 20 mg Documented By: CIRO Hydromorphone HCl (Hydromorphone Hcl 1 Mg/Ml Syringe) 0.5 mg IVPUSH Q4H PRN; Protocol PRN Reason: Pain, Severe (Pain Scale 7-10) Last Admin: 05/07/23 08:18 Dose: 0.5 mg Documented By: CIRO Levofloxacin (Levaquin) 500 mg in 100 mls @ 100 mls/hr IV Q24H [facility] Last Infusion: 05/06/23 19:19 Dose: 0 mls/hr Documented By: JOSE EDUARDO Metronidazole (Flagyl) 500 mg in 100 mls @ 100 mls/hr IV Q6H [facility] Last Infusion: 05/07/23 05:31 Dose: 0 mls/hr Documented By: JOSE EDUARDO Potassium Chloride/Sodium Chloride (Kcl 20 Meq In 0.9 % Sodium Chl) 20 meq in 1,000 mls @ 100 mls/hr IVCONT .Q10H [facility] Last Admin: 05/07/23 05:34 Dose: 100 mls/hr Documented By: JOSE EDUARDO Lisinopril (Lisinopril 10 Mg Tablet) 30 mg PO DAILY [facility]; Protocol Last Admin: 05/07/23 08:19 Dose: 30 mg Documented By: CIRO Metoprolol Succinate (Metoprolol Succinate Er 50 Mg Tab.Er.24h) 150 mg PO DAILY [facility]; Protocol Last Admin: 05/07/23 08:18 Dose: 150 mg Documented By: CIRO Omeprazole (Omeprazole 20 Mg Capsule.Dr) 20 mg PO DAILY@0630 [facility] Last Admin: 05/07/23 05:33 Dose: 20 mg Documented By: JOSE EDUARDO Ondansetron HCl (Ondansetron Hcl 4 Mg/2 Ml Vial) 4 mg IVPUSH Q8H PRN PRN Reason: Nausea and Vomiting Last Admin: 05/07/23 00:17 Dose: 4 mg Documented By: JOSE EDUARDO Oxycodone HCl (Oxycodone Hcl Immed Release 5 Mg Tablet) 5 mg PO Q4H PRN PRN Reason: Pain, Moderate(Pain Scale 4-6) Simethicone (Simethicone 80 Mg Tab.Chew) 160 mg PO QIDWMHS PRN PRN Reason: Gas Last Admin: 05/07/23 08:19 Dose: 160 mg Documented By: CIRO Sodium Chloride (0.9 % Sodium Chloride Flush 3 Ml Syringe) 3 ml IVFLUSH QSHIFT [facility] Last Admin: 05/07/23 08:20 Dose: 3 ml Documented By: CIRO Trazodone HCl (Trazodone Hcl 100 Mg Tablet) 200 mg PO BEDTIME [facility] Last Admin: 05/06/23 20:17 Dose: 200 mg Documented By: JOSE EDUARDO Labs 05/06/23 05:40 05/06/23 05:40 Labs: 05/07 labs pending Microbiology Microbiology Results: Microbiology 05/05/23 14:15 Gram Stain - Final Abscess Intra-abdominal Routine Culture - Final No growth after 2 days Anaerobic Culture - Preliminary No growth to date. 05/04/23 13:44 Blood Culture - Preliminary Blood - Venous No growth after 48 hours. 05/04/23 13:44 Blood Culture - Preliminary Blood - Venous No growth after 48 hours. Procedures Date of Service Date of Service: 05/07/23 Progress Note: A&P Assessment and plan (1) Colonic diverticular abscess: Status: Acute (2) Perforated diverticulum: Status: Acute (3) Bladder fistula: Status: Acute (4) Irritable bowel syndrome with constipation: Status: Acute (5) Diverticulosis: Status: Acute Plan Continue present diet and IV antibiotics Trend labs and physical exam Time Spent With Patient Time: Total time managing care of this patient today ____ minutes. Quality Stroke Does the patient have a stroke diagnosis?: No VTE Prior VTE?: No VTE Risk Level:: Medical - moderate - high VTE Device Contraindication: N/A - Device Ordered VTE Drug Contraindication: N/A - Med Ordered
[2023-05-07 15:46] VITALS: BP 108/54; PULSE 75; RESP 20; TEMP 36.5; O2SAT 96
[2023-05-07] MEDS: levoFLOXacin/D5W 500 MG/100 ML PIGGYBACK 100 MG IV (17:26)
[2023-05-07 20:00] VITALS: BP 113/58; PULSE 72; TEMP 36.6; O2SAT 94
[2023-05-07] MEDS: traZODone HCL 100 MG TABLET 200 MG PO (20:03)
[2023-05-08 00:11] VITALS: BP 100/56; PULSE 70; RESP 19; TEMP 36.4; O2SAT 93
[2023-05-08] MEDS: metroNIDAZOLE/NS 500 MG/100 ML PIGGYBACK 100 MG IV ×4 (00:13→21:56)
[2023-05-08] MEDS: KCl 20 mEq in 0.9 % Sodium ChL 20 MEQ/1,000 ML IV.SOLN 100 MEQ IVCONT ×3 (00:13→23:34)
[2023-05-08] MEDS: ondansetron HCL 4 MG/2 ML VIAL IVPUSH ×2 (02:24→16:12)
[2023-05-08] MEDS: HYDROmorphone HCl 1 MG/ML SYRINGE 0.5 MG IVPUSH ×4 (02:30→20:27)
[2023-05-08] MEDS: Omeprazole 20 MG CAPSULE.DR PO (05:24)
[2023-05-08 06:45] LABS: Anion Gap 13 (12-20); Blood Urea Nitrogen 4 mg/dL (9-16); Calcium 8.1 mg/dL (8.4-10.2); Carbon Dioxide 24 mmol/L (22-29); Chloride 108 mmol/L (96-108); Creatinine Clr Calc Pharmacy 97.6; Estimated Glomerular Filt Rate > 60; Glucose Random 103 mg/dL (60-115); Potassium 3.5 mmol/L (3.3-5.1); Sodium 141 mmol/L (135-145)
[2023-05-08 06:46] LABS: Basophils Percent Auto 0.3 % (0-2); Eosinophils Absolute Auto 0.2 X10*3/uL (0.0-0.4); Eosinophils Percent Auto 1.5 % (0-4); Hematocrit 32.5 % (37.0-47.0); Imm Gran Abs Auto 0.13 X10*3/uL (0.00-0.03); Imm Gran Pct Auto 0.9 % (0.0-0.4); Lymphocytes Absolute Auto 2.3 X10*3/uL (1.2-4.9); Lymphocytes Percent Auto 16.3 % (20-40); MANUAL DIFF FLAG SCAN; Mean Corpuscular HGB Conc 30.8 g/dl (31.0-35.0); Mean Corpuscular Hemoglobin 26.5 pg (27.0-33.0); Mean Corpuscular Volume 86.2 fL (80.0-98.0); Mean Platelet Volume 9.9 fL (9.4-12.3); Monocytes Absolute Auto 1.1 X10*3/uL (0.1-1.2); Monocytes Percent Auto 7.6 % (2-11); Neutrophils Absolute Auto 10.3 x10*3/uL (2.0-8.3); Neutrophils Percent Auto 73.4 % (45-73); PLT CLUMP 1; Red Blood Count 3.77 X10*6/uL (4.20-5.50); SCAN SMEAR FLAG 1
[2023-05-08 06:47] LABS: Platelet Count 388 X10*3/uL (160-400); White Blood Count 14.1 X10*3/uL (4.8-10.8)
[2023-05-08 07:16] LABS: SLIDE REVIEW VERIFIED
[2023-05-08 07:32] VITALS: BP 105/67; PULSE 81; RESP 18; TEMP 36.1; O2SAT 95
[2023-05-08] MEDS: Metoprolol Succinate ER 50 MG TAB.ER.24H 150 MG PO (08:32)
[2023-05-08] MEDS: amLODIPine Besylate 5 MG TABLET PO (08:32)
[2023-05-08] MEDS: lisinopriL 10 MG TABLET 30 MG PO (08:32)
[2023-05-08] MEDS: Atorvastatin Calcium 20 MG TABLET PO (08:32)
[2023-05-08 08:33] VITALS: RESP 19
--- NOTE | 2023-05-08 10:38 | P.PNGS_ITS ---
Subjective Subjective Date of Service: 05/08/23 Patient reports: no new complaints, tolerating liquids well, flatus and diarrhea Interval history: Patient is seen in coverage for Dr. Quan Anesthesiologist was able to obtain a right forearm IV yesterday. Patient notes that she is tolerating her liquids but having diarrhea. She denies any chest pain, difficulty breathing or shortness of breath. Physical Exam Vital Signs: Vital Signs: Last Vital Signs Temp 97.0 F 05/08/23 07:32 Pulse 81 05/08/23 07:32 Resp 19 05/08/23 08:33 BP 105/67 05/08/23 07:32 Pulse Ox 95 05/08/23 07:32 O2 Del Method Room Air 05/08/23 07:32 BMI result Body Mass Index 30.0 On exam she is in good spirits She is having no respiratory difficulty Abdomen is obese with continued suprapubic and left lower quadrant tenderness; improved vs yesterday Objective Data Active Medications Acetaminophen (Acetaminophen 325 Mg Tablet) 650 mg PO Q6H PRN PRN Reason: Pain, Mild (Pain Scale 1-3) Amlodipine Besylate (Amlodipine Besylate 5 Mg Tablet) 5 mg PO DAILY [facility]; Protocol Last Admin: 05/08/23 08:32 Dose: 5 mg Documented By: NICK.COTEMA Atorvastatin Calcium (Atorvastatin Calcium 20 Mg Tablet) 20 mg PO DAILY [facility] Last Admin: 05/08/23 08:32 Dose: 20 mg Documented By: NICK.COTEMA Hydromorphone HCl (Hydromorphone Hcl 1 Mg/Ml Syringe) 0.5 mg IVPUSH Q4H PRN; Protocol PRN Reason: Pain, Severe (Pain Scale 7-10) Last Admin: 05/08/23 08:33 Dose: 0.5 mg Documented By: NICK.COTEMA Levofloxacin (Levaquin) 500 mg in 100 mls @ 80 mls/hr IV Q24H [facility] Last Infusion: 05/08/23 07:20 Dose: 0 mls/hr Documented By: NICK.COTEMA Potassium Chloride/Sodium Chloride (Kcl 20 Meq In 0.9 % Sodium Chl) 20 meq in 1,000 mls @ 100 mls/hr IVCONT .Q10H [facility] Last Infusion: 05/08/23 10:07 Dose: 0 mls/hr Documented By: NICK.COTEMA Metronidazole (Flagyl) 500 mg in 100 mls @ 100 mls/hr IV Q6H [facility] Last Infusion: 05/08/23 07:20 Dose: 0 mls/hr Documented By: CHARLIE Lisinopril (Lisinopril 10 Mg Tablet) 30 mg PO DAILY [facility]; Protocol Last Admin: 05/08/23 08:32 Dose: 30 mg Documented By: CHARLIE Metoprolol Succinate (Metoprolol Succinate Er 50 Mg Tab.Er.24h) 150 mg PO DAILY [facility]; Protocol Last Admin: 05/08/23 08:32 Dose: 150 mg Documented By: CHARLIE Omeprazole (Omeprazole 20 Mg Capsule.Dr) 20 mg PO DAILY@0630 [facility] Last Admin: 05/08/23 05:24 Dose: 20 mg Documented By: KARI Ondansetron HCl (Ondansetron Hcl 4 Mg/2 Ml Vial) 4 mg IVPUSH Q8H PRN PRN Reason: Nausea and Vomiting Last Admin: 05/08/23 02:24 Dose: 4 mg Documented By: KARI Oxycodone HCl (Oxycodone Hcl Immed Release 5 Mg Tablet) 5 mg PO Q4H PRN PRN Reason: Pain, Moderate(Pain Scale 4-6) Simethicone (Simethicone 80 Mg Tab.Chew) 160 mg PO QIDWMHS PRN PRN Reason: Gas Last Admin: 05/07/23 17:36 Dose: 160 mg Documented By: CIRO Sodium Chloride (0.9 % Sodium Chloride Flush 3 Ml Syringe) 3 ml IVFLUSH QSHIFT [facility] Last Admin: 05/08/23 07:20 Dose: Not Given Documented By: CHARLIE Non-Admin Reason: IV Running Trazodone HCl (Trazodone Hcl 100 Mg Tablet) 200 mg PO BEDTIME [facility] Last Admin: 05/07/23 20:03 Dose: 200 mg Documented By: KARI Labs 05/08/23 05:43 05/08/23 05:43 Labs: Laboratory Results - last 24 hr 05/08/23 05/08/23 05:43 05:43 MCV 86.2 MCH 26.5 L MCHC 30.8 L RDW 14.0 Plt Count 388 MPV 9.9 Immature Gran % (Auto) 0.9 H Neut % (Auto) 73.4 H Lymph % (Auto) 16.[address] [facility] % (Auto) 7.6 Eos % (Auto) 1.5 Baso % (Auto) 0.3 Lymph # (Auto) 2.3 [facility] # (Auto) 1.1 Eos # (Auto) 0.2 Baso # (Auto) 0.0 Abs Immat Gran (auto) 0.13 H Absolute Neuts (auto) 10.3 H Absolute Nucleated RBC 0.000 Nucleated RBC % (auto) 0.0 Smear Tech's Comments VERIFIED Anion Gap 13 Estim Creat Clear Calc 97.6 Estimated GFR > 60 Random Glucose 103 Calcium 8.1 L Microbiology Microbiology Results: Microbiology 05/05/23 14:15 Gram Stain - Final Abscess Intra-abdominal Routine Culture - Final No growth after 2 days Anaerobic Culture - Preliminary No growth to date. Procedures Date of Service Date of Service: 05/08/23 Progress Note: A&P Assessment and plan (1) Colonic diverticular abscess: Status: Acute (2) Perforated diverticulum: Status: Acute (3) Bladder fistula: Status: Acute Plan Continue present plan regarding diet and IV antibiotics Patient lost IV access again. Patient has requested a central line and I have reached out to Dr. Paloma Saucedo the on-call anesthesiologist & nursing supervis or so that options can be offered to the patient regarding a possible central line or peripheral IV until Dr. Quan returns tomorrow. Time Spent With Patient Time: Total time managing care of this patient today ____ minutes. Quality Stroke Does the patient have a stroke diagnosis?: No VTE Prior VTE?: No VTE Risk Level:: Medical - moderate - high VTE Device Contraindication: N/A - Device Ordered VTE Drug Contraindication: N/A - Med Ordered
--- NOTE | 2023-05-08 12:34 | MHC.CLN ---
F/U DIET=FULL LIQUIDS WITH ENSURE CLEAR TID. SUPPLEMENT PROVIDES ADDITIONAL 720 KCALS, 24 G PROTEIN. INTAKE USUALLY LESS THAN 50%. MONITOR FOR DIET TOLERANCE/ADVANCEMENT.
[2023-05-08] MEDS: Simethicone 80 MG TAB.CHEW 160 MG PO (12:56)
--- NOTE | 2023-05-08 14:15 | PM.ANESPROC ---
Procedures Date of Service Date of Service: 05/08/23 Central Line Placement Right IJ: Central Line Comments: Patient did not have peripheral IV access. No sedation given for procedure. Consent for Procedure: Elective - informed consent obtained Time out performed: Yes (at 1326) Sterile Technique Used: Yes Patient placed on monitor/pulse ox: No MD prep: mask, gown, gloves and other (cap) Central line prep: Chlorhexidine scrub and sterile drapes applied Local anesthesia used: lidocaine 1% (to skin) Amount of anesthesia used (ml): 2 Ultrasound used for placement: Yes Central line lumen inserted: triple Post procedure: sutured in place, good blood return, all ports aspirated, flushed, capped and sterile dressing applied Post procedure x-ray: other (stat chest x-ray ordered after procedure was completed. Pending final read by radiologist.) Patient tolerated procedure: well and no complications Complications: none
[2023-05-08 15:19] VITALS: BP 101/53; PULSE 67; RESP 19; TEMP 36.2; O2SAT 96
--- NOTE | 2023-05-08 15:24 | P.CONAN1_ITS ---
History of Present Illness Consult details Consult date: 05/08/23 (at 1019) Reason for consult: central line Requesting physician: Jeff Lauren Narrative: 63 yo F admitted for diverticular abscess. She had multiple peripheral IV placements infiltrate. Dr. Lauren consulted for central line placement because there is no interventional radiology coverage currently. Per Dr. Lauren, she had an ultrasound-guided PIV placement overnight by the on-call anesthesiologist which infiltrated this morning. She requires line access for on-going IV an tibiotic therapy. FOR[facility]LY [facility] Past Medical History Medical History Barretts esophagus GERD (gastroesophageal reflux disease) Hypertension Family History Family History Father Colon cancer Paternal Aunt Colon cancer Surgical History Surgical History History of esophagogastroduodenoscopy (EGD) Hx of colonoscopy History of Problems with Anesthesia: No Social History Social History Household Members: None Housing: House Do you presently have visiting nurse or other home services: No Alcohol intake: never Patient Tobacco Use Status: Current everyday Tobacco user Tobacco use type: Cigarette Cigarette Packs Per Day: 0.5 Cigarettes Per Day: 10.0 Years Smoked: 30 Smoked in Last 30 Days: Yes e-Cigarette/Vaping Use: Never Used Patient Interested in Nicotine Replacement: No Patient Given Instructions on How to Stop Smoking: Yes Date Education Initiated: 05/04/23 Use of substances other than those prescribed or required for medical reasons: Yes Substance Use Type: Marijuana Substance Use Frequency: Daily Last Used Substance: Just Prior to Admission Currently Displaying Signs/Symptoms of Drug Intoxication Withdrawal: No Any prior treatment program specific to substance use: No Have you been hit, kicked, punched, or otherwise hurt by someone within the past year? If so, by whom?: No Do you feel safe in your current relationship?: No Current Relationship Is there a partner from a previous relationship who is making you feel unsafe now?: No Are you made to feel afraid or neglected: No Advance Directives: No Advance Directives on File: No Do you have thoughts of harming others: None Do you have a plan to hurt others: No Plan Recently lost weight without trying: Yes How much weight loss: 14-23 pounds Eating poorly because of decreased appetite: Yes Nutrition screen score: 5 Nutrition Risks: Acute nausea or vomiting x1 week and Poor intake 0-25% >4 days Patient : No : No Poor oral hygiene: No Meds Allergies Allergy/AdvReac Type Severity Reaction Status Date / Time amoxicillin [Augmentin] Allergy Unknown GI, Verified 05/03/23 16:29 Difficulty breathing clavulanic acid [Augmentin] Allergy Unknown GI, Verified 05/03/23 16:29 Difficulty breathing codeine [CODEINE] Allergy Unknown SENSITIVIT Verified 05/03/23 16:29 Y erythromycin base Allergy Unknown GI, DIFF Verified 05/03/23 16:29 [Erythromycin Base] BREATHING NSAIDS (Non-Steroidal Allergy Unknown GI UPSET Verified 05/03/23 16:29 Anti-Inflamma [NSAIDS (NON-STEROIDAL ANTI-INFLAMMA] shellfish derived Allergy Unknown Sensitivity Verified 05/03/23 16:29 Sulfa (Sulfonamide Allergy Unknown RASH Verified 05/03/23 16:29 Antibiotics) morphine [MORPHINE] AdvReac Severe NAUSEA Verified 05/03/23 16:29 aspirin [Aspirin] AdvReac Mild STOMACH Verified 05/03/23 16:29 UPSET Active Medications: Current Medications Acetaminophen (Acetaminophen 325 Mg Tablet) 650 mg PO Q6H PRN PRN Reason: Pain, Mild (Pain Scale 1-3) Amlodipine Besylate (Amlodipine Besylate 5 Mg Tablet) 5 mg PO DAILY [facility]; Protocol Last Admin: 05/08/23 08:32 Dose: 5 mg Atorvastatin Calcium (Atorvastatin Calcium 20 Mg Tablet) 20 mg PO DAILY [facility] Last Admin: 05/08/23 08:32 Dose: 20 mg Hydromorphone HCl (Hydromorphone Hcl 1 Mg/Ml Syringe) 0.5 mg IVPUSH Q4H PRN; Protocol PRN Reason: Pain, Severe (Pain Scale 7-10) Last Admin: 05/08/23 08:33 Dose: 0.5 mg Levofloxacin (Levaquin) 500 mg in 100 mls @ 80 mls/hr IV Q24H [facility] Last Infusion: 05/08/23 07:20 Dose: Infused Potassium Chloride/Sodium Chloride (Kcl 20 Meq In 0.9 % Sodium Chl) 20 meq in 1,000 mls @ 100 mls/hr IVCONT .Q10H [facility] Last Infusion: 05/08/23 10:07 Dose: Infused Metronidazole (Flagyl) 500 mg in 100 mls @ 100 mls/hr IV Q6H [facility] Last Infusion: 05/08/23 07:20 Dose: Infused Lisinopril (Lisinopril 10 Mg Tablet) 30 mg PO DAILY [facility]; Protocol Last Admin: 05/08/23 08:32 Dose: 30 mg Metoprolol Succinate (Metoprolol Succinate Er 50 Mg Tab.Er.24h) 150 mg PO DAILY [facility]; Protocol Last Admin: 05/08/23 08:32 Dose: 150 mg Omeprazole (Omeprazole 20 Mg Capsule.Dr) 20 mg PO DAILY@0630 [facility] Last Admin: 05/08/23 05:24 Dose: 20 mg Ondansetron HCl (Ondansetron Hcl 4 Mg/2 Ml Vial) 4 mg IVPUSH Q8H PRN PRN Reason: Nausea and Vomiting Last Admin: 05/08/23 02:24 Dose: 4 mg Oxycodone HCl (Oxycodone Hcl Immed Release 5 Mg Tablet) 5 mg PO Q4H PRN PRN Reason: Pain, Moderate(Pain Scale 4-6) Simethicone (Simethicone 80 Mg Tab.Chew) 160 mg PO QIDWMHS PRN PRN Reason: Gas Last Admin: 05/08/23 12:56 Dose: 160 mg Sodium Chloride (0.9 % Sodium Chloride Flush 3 Ml Syringe) 3 ml IVFLUSH QSHIFT [facility] Last Admin: 05/08/23 07:20 Dose: Not Given Trazodone HCl (Trazodone Hcl 100 Mg Tablet) 200 mg PO BEDTIME [facility] Last Admin: 05/07/23 20:03 Dose: 200 mg Home Medications Medication Instructions Recorded Confirmed Last Taken Type amlodipine 5 mg tablet 5 mg PO DAILY 03/01/23 05/04/23 05/04/23 History atorvastatin 20 mg tablet 20 mg PO DAILY 03/01/23 05/04/23 05/04/23 History esomeprazole magnesium 40 mg 40 mg PO DAILY 03/01/23 05/04/23 05/04/23 History capsule,delayed release (Nexium) hydrochlorothiazide 25 mg tablet 25 mg PO DAILY 03/01/23 05/04/23 05/04/23 History lisinopril 30 mg tablet 30 mg PO DAILY 03/01/23 05/04/23 05/04/23 History metoprolol succinate 100 mg 150 mg PO DAILY 03/01/23 05/04/23 05/04/23 History tablet,extended release 24 hr trazodone 100 mg tablet 200 mg PO BEDTIME 03/01/23 05/04/23 05/03/23 History calcium carbonate 500 mg calcium 500 mg PO DAILY 05/04/23 05/04/23 05/04/23 History (1,250 mg) tablet multivitamin 1 tab PO DAILY 05/04/23 05/04/23 05/04/23 History Physical Exam Vital Signs: Vital Signs: Last Vital Signs Temp 97.1 F 05/08/23 15:19 Pulse 67 05/08/23 15:19 Resp 19 05/08/23 15:19 BP 101/53 L 05/08/23 15:19 Pulse Ox 96 05/08/23 15:19 O2 Del Method Room Air 05/08/23 15:19 BMI result Body Mass Index 30.0 Const: General: cooperative, no acute distress, alert and awake Orientation/consciousness: patient oriented x3 HEENT: Head: Yes normal to inspection Ears: hearing grossly normal bilaterally General nose exam: Normal external nose present Face and sinus: Yes normal facial exam Teeth and gingiva: dentition normal Throat: Yes posterior oropharynx normal and Yes uvula midline Eyes: General: appearance normal, both eyes and all related structures Neck: Neck: Yes normal visual inspection and Yes full ROM Resp: Effort & Inspection: normal respiratory effort and able to speak in complete sentences Auscultation: clear to auscultation bilaterally Cardio: Heart sounds: S1 normal heart sound present and S2 normal heart sound present Neuro: General: patient oriented x3 Extrem: Other: Multiple bruises to bilateral upper extremities from PIV infiltration. Results Labs 05/08/23 05:43 05/08/23 05:43 Labs: Abnormal lab results 05/08/23 05/08/23 Range/Units 05:43 05:43 WBC 14.1 H (4.8-10.8) X10*3/uL RBC 3.77 L (4.20-5.50) X10*6/uL Hgb 10.0 L (12.0-16.0) g/dl Hct 32.5 L (37.0-47.0) % MCH 26.5 L (27.0-33.0) pg MCHC 30.8 L (31.0-35.0) g/dl Immature Gran % (Auto) 0.9 H (0.0-0.4) % Neut % (Auto) 73.4 H (45-73) % Lymph % (Auto) 16.3 L (20-40) % Abs Immat Gran (auto) 0.13 H (0.00-0.03) X10*3/uL Absolute Neuts (auto) 10.3 H (2.0-8.3) x10*3/uL BUN 4 L (9-16) mg/dL Calcium 8.1 L (8.4-10.2) mg/dL Short CBC 05/08/23 Range/Units 05:43 WBC 14.1 H (4.8-10.8) X10*3/uL Hgb 10.0 L (12.0-16.0) g/dl Hct 32.5 L (37.0-47.0) % Plt Count 388 (160-400) X10*3/uL BMP 05/08/23 05:43 Sodium 141 Potassium 3.5 Chloride 108 Carbon Dioxide 24 BUN 4 L Creatinine 0.55 Calcium 8.1 L Urine 05/04/23 Range/Units 13:27 Urine Color Yellow Urine Appearance Turbid Urine pH 5.5 (5.0-9.0) Ur Specific [place] 1.020 (1.005-1.025) Urine Protein 300 (3+) H (Neg-Trace) mg/dL Urine Glucose (UA) Negative (Negative) mg/dL All other labs normal. Assessment and Plan (1) Colonic diverticular abscess: Status: Acute Plan Right internal jugular central line placement under ultrasound guidance. Patient was given informed consent. Please see procedure note for details. Time Spent With Patient Time: Total time managing care of this patient today _60_ minutes. Procedures Date of Service Date of Service: 05/08/23
[2023-05-08] MEDS: 0.9 % Sodium Chloride Flush 3 ML SYRINGE IVFLUSH ×2 (16:11→20:27)
[2023-05-08 16:12] VITALS: RESP 19
[2023-05-08] MEDS: levoFLOXacin/D5W 500 MG/100 ML PIGGYBACK 100 MG IV (17:40)
[2023-05-08 18:50] VITALS: BP 104/59; PULSE 77; RESP 18; TEMP 36.1; O2SAT 96
[2023-05-08] MEDS: traZODone HCL 100 MG TABLET 200 MG PO (20:20)
[2023-05-09] MEDS: ondansetron HCL 4 MG/2 ML VIAL IVPUSH ×3 (00:16→19:37)
[2023-05-09] MEDS: HYDROmorphone HCl 1 MG/ML SYRINGE 0.5 MG IVPUSH ×2 (00:17→08:38)
[2023-05-09] MEDS: metroNIDAZOLE/NS 500 MG/100 ML PIGGYBACK 100 MG IV ×4 (03:40→21:33)
[2023-05-09 04:00] VITALS: BP 112/56; PULSE 73; RESP 16; TEMP 36.4; O2SAT 94
[2023-05-09] MEDS: Omeprazole 20 MG CAPSULE.DR PO (05:31)
[2023-05-09] MEDS: Simethicone 80 MG TAB.CHEW 160 MG PO (06:05)
[2023-05-09 08:00] VITALS: BP 109/61; PULSE 78; RESP 16; TEMP 36.2; O2SAT 95
[2023-05-09] MEDS: amLODIPine Besylate 5 MG TABLET PO (08:39)
[2023-05-09] MEDS: Metoprolol Succinate ER 50 MG TAB.ER.24H 150 MG PO (08:40)
[2023-05-09] MEDS: lisinopriL 10 MG TABLET 30 MG PO (08:40)
[2023-05-09] MEDS: Atorvastatin Calcium 20 MG TABLET PO (08:40)
[2023-05-09] MEDS: 0.9 % Sodium Chloride Flush 3 ML SYRINGE IVFLUSH ×2 (08:44→19:43)
--- NOTE | 2023-05-09 10:56 | PM.PNGS ---
Subjective Subjective Date of Service: 05/09/23 Interval history: Weekend events of IV access noted. Patient is having persistent lower abdominal pain. She actually is requesting to have surgery to relieve her symptoms. She is not tolerating her diet. She is having loose stool. She is also having pneumaturia and hematuria Physical Exam Vital Signs: Vital Signs: Last Vital Signs Temp 97.1 F 05/09/23 08:00 Pulse 78 05/09/23 08:00 Resp 16 05/09/23 08:00 BP 109/61 05/09/23 08:00 Pulse Ox 95 05/09/23 08:00 O2 Del Method Room Air 05/09/23 08:00 BMI result Body Mass Index 30.0 GI: Other: Abdomen my this leak corpulent. Marked left lower quadrant/suprapubic tenderness. No evidence of any guarding, rebound, or rigidity. Objective Data Active Medications Acetaminophen (Acetaminophen 325 Mg Tablet) 650 mg PO Q6H PRN PRN Reason: Pain, Mild (Pain Scale 1-3) Amlodipine Besylate (Amlodipine Besylate 5 Mg Tablet) 5 mg PO DAILY [facility]; Protocol Last Admin: 05/09/23 08:39 Dose: 5 mg Documented By: GUTIERREZ Atorvastatin Calcium (Atorvastatin Calcium 20 Mg Tablet) 20 mg PO DAILY [facility] Last Admin: 05/09/23 08:40 Dose: 20 mg Documented By: GUTIERREZ Hydromorphone HCl (Hydromorphone Hcl 1 Mg/Ml Syringe) 0.5 mg IVPUSH Q4H PRN; Protocol PRN Reason: Pain, Severe (Pain Scale 7-10) Last Admin: 05/09/23 08:38 Dose: 0.5 mg Documented By: GUTIERREZ Levofloxacin (Levaquin) 500 mg in 100 mls @ 80 mls/hr IV Q24H [facility] Last Infusion: 05/08/23 18:43 Dose: 0 mls/hr Documented By: COTKAROLINE Potassium Chloride/Sodium Chloride (Kcl 20 Meq In 0.9 % Sodium Chl) 20 meq in 1,000 mls @ 100 mls/hr IVCONT .Q10H [facility] Last Admin: 05/08/23 23:34 Dose: 100 mls/hr Documented By: KARI Metronidazole (Flagyl) 500 mg in 100 mls @ 100 mls/hr IV Q6H [facility] Last Admin: 05/09/23 10:22 Dose: 100 mls/hr Documented By: GUTIERREZ Lisinopril (Lisinopril 10 Mg Tablet) 30 mg PO DAILY [facility]; Protocol Last Admin: 05/09/23 08:40 Dose: 30 mg Documented By: GUTIERREZ Metoprolol Succinate (Metoprolol Succinate Er 50 Mg Tab.Er.24h) 150 mg PO DAILY [facility]; Protocol Last Admin: 05/09/23 08:40 Dose: 150 mg Documented By: GUTIERREZ Omeprazole (Omeprazole 20 Mg Capsule.Dr) 20 mg PO DAILY@0630 [facility] Last Admin: 05/09/23 05:31 Dose: 20 mg Documented By: KARI Ondansetron HCl (Ondansetron Hcl 4 Mg/2 Ml Vial) 4 mg IVPUSH Q8H PRN PRN Reason: Nausea and Vomiting Last Admin: 05/09/23 10:33 Dose: 4 mg Documented By: GUTIERREZ Oxycodone HCl (Oxycodone Hcl Immed Release 5 Mg Tablet) 5 mg PO Q4H PRN PRN Reason: Pain, Moderate(Pain Scale 4-6) Polyethylene Glycol (Polyethylene Glycol 3350 17 Gm Powd.Pack) 119 gm PO DAILY@1000 [facility] Stop: 05/10/23 10:01 Simethicone (Simethicone 80 Mg Tab.Chew) 160 mg PO QIDWMHS PRN PRN Reason: Gas Last Admin: 05/09/23 06:05 Dose: 160 mg Documented By: KARI Sodium Chloride (0.9 % Sodium Chloride Flush 3 Ml Syringe) 3 ml IVFLUSH QSHIFT [facility] Last Admin: 05/09/23 08:44 Dose: 3 ml Documented By: GUTIERREZ Trazodone HCl (Trazodone Hcl 100 Mg Tablet) 200 mg PO BEDTIME [facility] Last Admin: 05/08/23 20:20 Dose: 200 mg Documented By: KARI Labs 05/08/23 05:43 05/08/23 05:43 Microbiology Microbiology Results: Microbiology 05/05/23 14:15 Gram Stain - Final Abscess Intra-abdominal Routine Culture - Final No growth after 2 days Anaerobic Culture - Preliminary No growth to date. Procedures Date of Service Date of Service: 05/09/23 Progress Note: A&P Assessment and plan (1) Colonic diverticular abscess: Status: Acute (2) Perforated diverticulum: Status: Acute (3) Bladder fistula: Status: Acute Plan Current plan is to attempt a gentle bowel prep because the patient did not tolerate prior GoLYTELY prep. A expressed her that in order to attempt any kind of resection with primary anastomosis, it is imperative that she try to tolerate the prep as best as possible. Last colonoscopy was in 2019. Only noteworthy for diverticular disease. Tentatively, we will do a 2 day clear liquid diet and bowel prep and arrange for surgery for 05/11. Risks, benefits, alternatives of exploratory laparotomy, sigmoid resection, repair of bladder fistula, attempt primary anastomosis or possible ostomy were reviewed with the patient extensively and included but not limited to bleeding, infection, recurrence, numbness, pain, scarring, bowel, bile, ureter injury or leak and the patient agrees and wishes to proceed. All questions were answered. Time Spent With Patient Time: Total time managing care of this patient today ____ minutes. Quality Stroke Does the patient have a stroke diagnosis?: No VTE Prior VTE?: No VTE Risk Level:: Medical - moderate - high VTE Device Contraindication: N/A - Device Ordered VTE Drug Contraindication: N/A - Med Ordered
--- NOTE | 2023-05-09 11:00 | P.PNGS_ITS ---
Subjective Subjective Date of Service: 05/09/23 Interval history: Weekend events regarding IV access were noted. Patient is having persistent pelvic/lower abdominal pain. She has she wishes to proceed with the surgical procedure to relieve her symptoms. She is not tolerating her diet. She is having persistent fecalurea, which is quite distressing to her. Physical Exam Vital Signs: Vital Signs: Last Vital Signs Temp 97.1 F 05/09/23 08:00 Pulse 78 05/09/23 08:00 Resp 16 05/09/23 08:00 BP 109/61 05/09/23 08:00 Pulse Ox 95 05/09/23 08:00 O2 Del Method Room Air 05/09/23 08:00 BMI result Body Mass Index 30.0 Chest: Other: Chest sounds bilaterally. HS 1 in 2 GI: Other: Abdomen moderately corpulent. Marked suprapubic/left lower quadrant tenderness. No evidence of any guarding, rebound, rigidity. Objective Data Active Medications Acetaminophen (Acetaminophen 325 Mg Tablet) 650 mg PO Q6H PRN PRN Reason: Pain, Mild (Pain Scale 1-3) Amlodipine Besylate (Amlodipine Besylate 5 Mg Tablet) 5 mg PO DAILY [facility]; Protocol Last Admin: 05/09/23 08:39 Dose: 5 mg Documented By: GUTIERREZ Atorvastatin Calcium (Atorvastatin Calcium 20 Mg Tablet) 20 mg PO DAILY [facility] Last Admin: 05/09/23 08:40 Dose: 20 mg Documented By: GUTIERREZ Hydromorphone HCl (Hydromorphone Hcl 1 Mg/Ml Syringe) 0.5 mg IVPUSH Q4H PRN; Protocol PRN Reason: Pain, Severe (Pain Scale 7-10) Last Admin: 05/09/23 08:38 Dose: 0.5 mg Documented By: GUTIERREZ Levofloxacin (Levaquin) 500 mg in 100 mls @ 80 mls/hr IV Q24H [facility] Last Infusion: 05/08/23 18:43 Dose: 0 mls/hr Documented By: COTEMA Potassium Chloride/Sodium Chloride (Kcl 20 Meq In 0.9 % Sodium Chl) 20 meq in 1,000 mls @ 100 mls/hr IVCONT .Q10H [facility] Last Admin: 05/08/23 23:34 Dose: 100 mls/hr Documented By: KARI Metronidazole (Flagyl) 500 mg in 100 mls @ 100 mls/hr IV Q6H [facility] Last Admin: 05/09/23 10:22 Dose: 100 mls/hr Documented By: GUTIERREZ Lisinopril (Lisinopril 10 Mg Tablet) 30 mg PO DAILY [facility]; Protocol Last Admin: 05/09/23 08:40 Dose: 30 mg Documented By: GUTIERREZ Metoprolol Succinate (Metoprolol Succinate Er 50 Mg Tab.Er.24h) 150 mg PO DAILY [facility]; Protocol Last Admin: 05/09/23 08:40 Dose: 150 mg Documented By: GUTIERREZ Omeprazole (Omeprazole 20 Mg Capsule.Dr) 20 mg PO DAILY@0630 [facility] Last Admin: 05/09/23 05:31 Dose: 20 mg Documented By: KARI Ondansetron HCl (Ondansetron Hcl 4 Mg/2 Ml Vial) 4 mg IVPUSH Q8H PRN PRN Reason: Nausea and Vomiting Last Admin: 05/09/23 10:33 Dose: 4 mg Documented By: GUTIERREZ Oxycodone HCl (Oxycodone Hcl Immed Release 5 Mg Tablet) 5 mg PO Q4H PRN PRN Reason: Pain, Moderate(Pain Scale 4-6) Polyethylene Glycol (Polyethylene Glycol 3350 17 Gm Powd.Pack) 119 gm PO DAILY@1000 [facility] Stop: 05/10/23 10:01 Simethicone (Simethicone 80 Mg Tab.Chew) 160 mg PO QIDWMHS PRN PRN Reason: Gas Last Admin: 05/09/23 06:05 Dose: 160 mg Documented By: KARI Sodium Chloride (0.9 % Sodium Chloride Flush 3 Ml Syringe) 3 ml IVFLUSH QSHIFT [facility] Last Admin: 05/09/23 08:44 Dose: 3 ml Documented By: GUTIERREZ Trazodone HCl (Trazodone Hcl 100 Mg Tablet) 200 mg PO BEDTIME [facility] Last Admin: 05/08/23 20:20 Dose: 200 mg Documented By: KARI Labs 05/08/23 05:43 05/08/23 05:43 Microbiology Microbiology Results: Microbiology 05/05/23 14:15 Gram Stain - Final Abscess Intra-abdominal Routine Culture - Final No growth after 2 days Anaerobic Culture - Preliminary No growth to date. Procedures Date of Service Date of Service: 05/09/23 Progress Note: A&P Assessment and plan (1) Colonic diverticular abscess: Status: Acute (2) Perforated diverticulum: Status: Acute (3) Bladder fistula: Status: Acute Plan I discussed at length with the patient the risks, benefits, alternatives of open exploratory laparotomy with sigmoid resection, repair of bladder fistula, possible primary anastomosis or colostomy with the patient which included but not limited to bleeding, infection, recurrence of diverticular disease, numbness, pain, scarring, ureter injury and the patient wishes to proceed. All questions were answered. Arrangements were made for this. Patient's most recent colonoscopy was in 2019 which was only noteworthy for diverticular disease. Patient has had difficulty with GoLYTELY bowel prep in the past. The current plan is to attempt a gentle bowel prep with MiraLax because magnesium citrate is not available. Will also put the patient on clear liquids. The tentative plan is to arrange for surgery for 05/11. Case was also reviewed with Dr. Jimenez, urology. Time Spent With Patient Time: Total time managing care of this patient today ____ minutes. Quality Stroke Does the patient have a stroke diagnosis?: No VTE Prior VTE?: No VTE Risk Level:: Medical - moderate - high VTE Device Contraindication: N/A - Device Ordered VTE Drug Contraindication: N/A - Med Ordered
[2023-05-09] MEDS: polyethylene glycoL 3350 17 GM POWD.PACK 119 GM PO (12:34)
[2023-05-09] MEDS: KCl 20 mEq in 0.9 % Sodium ChL 20 MEQ/1,000 ML IV.SOLN 100 MEQ IVCONT (12:34)
[2023-05-09] MEDS: HYDROmorphone HCl 0.5 MG/0.5 ML SYRINGE IVPUSH ×2 (14:29→19:37)
[2023-05-09 14:58] VITALS: BP 116/60; PULSE 73; RESP 16; TEMP 36.7; O2SAT 94
[2023-05-09] MEDS: levoFLOXacin/D5W 500 MG/100 ML PIGGYBACK 100 MG IV (17:07)
[2023-05-09 20:00] VITALS: BP 117/56; PULSE 79; RESP 20; TEMP 36.5; O2SAT 96
[2023-05-09] MEDS: traZODone HCL 100 MG TABLET 200 MG PO (21:33)
[2023-05-10] MEDS: HYDROmorphone HCl 0.5 MG/0.5 ML SYRINGE IVPUSH ×5 (02:10→20:41)
[2023-05-10] MEDS: metroNIDAZOLE/NS 500 MG/100 ML PIGGYBACK 100 MG IV ×4 (03:46→22:10)
[2023-05-10 03:47] VITALS: BP 111/56; PULSE 77; RESP 16; TEMP 36.1; O2SAT 93
[2023-05-10] MEDS: Omeprazole 20 MG CAPSULE.DR PO (05:50)
[2023-05-10 07:57] VITALS: BP 123/59; PULSE 80; RESP 16; TEMP 36.4; O2SAT 95
[2023-05-10] MEDS: Atorvastatin Calcium 20 MG TABLET PO (08:37)
[2023-05-10] MEDS: lisinopriL 10 MG TABLET 30 MG PO (08:37)
[2023-05-10] MEDS: Metoprolol Succinate ER 50 MG TAB.ER.24H 150 MG PO (08:37)
[2023-05-10] MEDS: ondansetron HCL 4 MG/2 ML VIAL IVPUSH ×2 (08:37→20:41)
[2023-05-10] MEDS: amLODIPine Besylate 5 MG TABLET PO (08:38)
[2023-05-10] MEDS: 0.9 % Sodium Chloride Flush 3 ML SYRINGE IVFLUSH ×2 (08:43→20:41)
--- NOTE | 2023-05-10 10:13 | MHC.CLN ---
Addendum entered by Radha Contreras RD 05/10/23 10:31: DIET=CLEAR LIQUIDS PER MD NOTE. Original Note: NUTRITION CURRENT DIET IS FULL LIQUIDS. DISCONTINUED ORDER FOR ENSURE CLEAR. PATIENT STATES THAT ENSURE IS TOO SWEET AND DOES NOT LIKE/WANT. REPORTS USUAL MEAL PATTERN IS HIGHER PROTEIN FOODS PLUS VEGETABLES. PREFERS LOWER CARB AND NO SWEET FOODS. POOR PO INTAKE GREATER THAN 5 DAYS. SEE CLINICAL NUTRITION ASSESSMENT 05/10/23.
--- NOTE | 2023-05-10 10:31 | PM.PNGS ---
Subjective Subjective Date of Service: 05/10/23 Interval history: Uneventful evening. Still having abdominal pain. Tolerating gentle bowel prep. Physical Exam Vital Signs: Vital Signs: Last Vital Signs Temp 97.5 F 05/10/23 07:57 Pulse 80 05/10/23 07:57 Resp 16 05/10/23 07:57 BP 123/59 L 05/10/23 07:57 Pulse Ox 95 05/10/23 07:57 O2 Del Method Room Air 05/10/23 07:57 BMI result Body Mass Index 30.0 GI: Other: Abdomen soft. Suprapubic and left lower quadrant mild tenderness. Objective Data Active Medications Acetaminophen (Acetaminophen 325 Mg Tablet) 650 mg PO Q6H PRN PRN Reason: Pain, Mild (Pain Scale 1-3) Amlodipine Besylate (Amlodipine Besylate 5 Mg Tablet) 5 mg PO DAILY [facility]; Protocol Last Admin: 05/10/23 08:38 Dose: 5 mg Documented By: GUTIERREZ Atorvastatin Calcium (Atorvastatin Calcium 20 Mg Tablet) 20 mg PO DAILY [facility] Last Admin: 05/10/23 08:37 Dose: 20 mg Documented By: GUTIERREZ Hydromorphone HCl (Hydromorphone Hcl 0.5 Mg/0.5 Ml Syringe) 0.5 mg IVPUSH Q4H PRN; Protocol PRN Reason: Pain, Severe (Pain Scale 7-10) Last Admin: 05/10/23 08:38 Dose: 0.5 mg Documented By: GUTIERREZ Levofloxacin (Levaquin) 500 mg in 100 mls @ 80 mls/hr IV Q24H [facility] Last Infusion: 05/09/23 18:25 Dose: 0 mls/hr Documented By: GUTIERREZ Metronidazole (Flagyl) 500 mg in 100 mls @ 100 mls/hr IV Q6H [facility] Last Infusion: 05/10/23 04:52 Dose: 0 mls/hr Documented By: AMBER Lisinopril (Lisinopril 10 Mg Tablet) 30 mg PO DAILY [facility]; Protocol Last Admin: 05/10/23 08:37 Dose: 30 mg Documented By: GUTIERREZ Metoprolol Succinate (Metoprolol Succinate Er 50 Mg Tab.Er.24h) 150 mg PO DAILY [facility]; Protocol Last Admin: 05/10/23 08:37 Dose: 150 mg Documented By: GUTIERREZ Omeprazole (Omeprazole [address] 20 mg PO DAILY@0630 [facility] Last Admin: 05/10/23 05:50 Dose: 20 mg Documented By: AMBER Ondansetron HCl (Ondansetron Hcl 4 Mg/2 Ml Vial) 4 mg IVPUSH Q8H PRN PRN Reason: Nausea and Vomiting Last Admin: 05/10/23 08:37 Dose: 4 mg Documented By: GUTIERREZ Simethicone (Simethicone 80 Mg Tab.Chew) 160 mg PO QIDWMHS PRN PRN Reason: Gas Last Admin: 05/09/23 06:05 Dose: 160 mg Documented By: KARI Sodium Chloride (0.9 % Sodium Chloride Flush 3 Ml Syringe) 3 ml IVFLUSH QSHIFT [facility] Last Admin: 05/10/23 08:43 Dose: 3 ml Documented By: GUTIERREZ Trazodone HCl (Trazodone Hcl 100 Mg Tablet) 200 mg PO BEDTIME [facility] Last Admin: 05/09/23 21:33 Dose: 200 mg Documented By: AMBER Labs 05/08/23 05:43 05/08/23 05:43 Microbiology Microbiology Results: Microbiology 05/05/23 14:15 Gram Stain - Final Abscess Intra-abdominal Routine Culture - Final No growth after 2 days Anaerobic Culture - Final NO GROWTH AFTER 5 DAYS 05/04/23 13:44 Blood Culture - Final Blood - Venous No growth after 5 days. 05/04/23 13:44 Blood Culture - Final Blood - Venous No growth after 5 days. Procedures Date of Service Date of Service: 05/10/23 Progress Note: A&P Assessment and plan (1) Colonic diverticular abscess: Status: Acute (2) Perforated diverticulum: Status: Acute (3) Bladder fistula: Status: Acute Plan Tentatively scheduled for surgery tomorrow. Dr. Cooper/abdulaziz will put left ureteral stent in prior to abdominal surgery portion. I discussed with the patient that she will need several week of Erwin catheter in place postoperatively. Time Spent With Patient Time: Total time managing care of this patient today ____ minutes. Quality Stroke Does the patient have a stroke diagnosis?: No VTE Prior VTE?: No VTE Risk Level:: Medical - moderate - high VTE Device Contraindication: N/A - Device Ordered VTE Drug Contraindication: N/A - Med Ordered
[2023-05-10] MEDS: Simethicone 80 MG TAB.CHEW 160 MG PO ×2 (11:20→16:20)
[2023-05-10] MEDS: polyethylene glycoL 3350 17 GM POWD.PACK 119 GM PO (11:22)
--- NOTE | 2023-05-10 12:41 | MHC.CM.PN ---
Patient is planned for or tomorrow. DP will depend on recovery from surgery. A PT eval may be ordered to determine if the patient qualifies for STR. Transport will be provided by BLS if dispo is STR. CM will follow.
[2023-05-10 16:00] VITALS: BP 129/61; PULSE 75; RESP 20; TEMP 36.3; O2SAT 94
[2023-05-10] MEDS: levoFLOXacin/D5W 500 MG/100 ML PIGGYBACK 100 MG IV (17:31)
[2023-05-10 19:56] VITALS: BP 120/60; PULSE 74; RESP 20; TEMP 36.4; O2SAT 93
[2023-05-10] MEDS: traZODone HCL 100 MG TABLET 200 MG PO (20:41)
[2023-05-11] VITALS (28 sets, daily range): BP systolic 76–127; BP diastolic 44–68; PULSE 71–118; RESP 14–17; TEMP 36–36.6; O2SAT 93–98
[2023-05-11] MEDS: HYDROmorphone HCl 0.5 MG/0.5 ML SYRINGE IVPUSH ×4 (03:08→21:21)
[2023-05-11] MEDS: metroNIDAZOLE/NS 500 MG/100 ML PIGGYBACK 100 MG IV ×3 (03:50→18:37)
[2023-05-11] MEDS: 0.9 % Sodium Chloride Flush 3 ML SYRINGE IVFLUSH ×2 (09:24→18:44)
--- NOTE | 2023-05-11 11:36 | P.CNUR_ITS ---
History of Present Illness Consult details Consult date: 05/11/23 Narrative: 63 year old female with PMH of GERD and barretts esophagus, hypertension, hyperlipidemia who presented to the ED 05/04/23 with severe lower abdominal pain and gross hematuria. Patient reports this has been going on for the last month. She reports the pain is mostly on the lower left abdomen and pelvic area. She states she has lost 20 lbs over the past month. She denies nausea, vomiting, fevers or chills. She reports she has only had very small bowel movements over the past few weeks. She has a history of sigmoid diverticulitis with multiple episodes per year for the past 10 years and have been treated with PO antibiotics. Last episode was in December of this year. CT scan abd/pelvis showed marked wall thickening of the sigmoid colon with pericolonic stranding with an associated fluid collection in the midline pelvis. There was focal wall thickening at the bladder dome in direct contiguity with a collection containing gas and fluid measuring 3.6 x 3.9 x 3.7 cm. UA positive for nitrites and WBC. She is s/p CT guided pelvic drain 05/05/23, I have discussed placement of ureteral stents for planned sigmoid/colon resection. Review of Systems 2 Review of Systems: 10 point ROS negative other than stated in the [facility] Past Medical History Medical History Hypertension Barretts esophagus GERD (gastroesophageal reflux disease) Family History Family History Father Colon cancer Paternal Aunt Colon cancer Surgical History Surgical History History of esophagogastroduodenoscopy (EGD) Hx of colonoscopy Social History Social History Household Members: None Housing: House Do you presently have visiting nurse or other home services: No Alcohol intake: never Patient Tobacco Use Status: Current everyday Tobacco user Tobacco use type: Cigarette Cigarette Packs Per Day: 0.5 Cigarettes Per Day: 10.0 Years Smoked: 30 Smoked in Last 30 Days: Yes e-Cigarette/Vaping Use: Never Used Patient Interested in Nicotine Replacement: No Patient Given Instructions on How to Stop Smoking: Yes Date Education Initiated: 05/04/23 Use of substances other than those prescribed or required for medical reasons: Yes Substance Use Type: Marijuana Substance Use Frequency: Daily Last Used Substance: Just Prior to Admission Currently Displaying Signs/Symptoms of Drug Intoxication Withdrawal: No Any prior treatment program specific to substance use: No Have you been hit, kicked, punched, or otherwise hurt by someone within the past year? If so, by whom?: No Do you feel safe in your current relationship?: No Current Relationship Is there a partner from a previous relationship who is making you feel unsafe now?: No Are you made to feel afraid or neglected: No Are you DNR?: No Advance Directives: No Advance Directives on File: No Do you have thoughts of harming others: None Do you have a plan to hurt others: No Plan Recently lost weight without trying: Yes How much weight loss: 14-23 pounds Eating poorly because of decreased appetite: Yes Nutrition screen score: 5 Nutrition Risks: Acute nausea or vomiting x1 week and Poor intake 0-25% >4 days Patient : No : No Poor oral hygiene: No Meds Allergies Allergy/AdvReac Type Severity Reaction Status Date / Time amoxicillin [Augmentin] Allergy Unknown GI, Verified 05/03/23 16:29 Difficulty breathing clavulanic acid [Augmentin] Allergy Unknown GI, Verified 05/03/23 16:29 Difficulty breathing codeine [CODEINE] Allergy Unknown SENSITIVIT Verified 05/03/23 16:29 Y erythromycin base Allergy Unknown GI, DIFF Verified 05/03/23 16:29 [Erythromycin Base] BREATHING NSAIDS (Non-Steroidal Allergy Unknown GI UPSET Verified 05/03/23 16:29 Anti-Inflamma [NSAIDS (NON-STEROIDAL ANTI-INFLAMMA] shellfish derived Allergy Unknown Sensitivity Verified 05/03/23 16:29 Sulfa (Sulfonamide Allergy Unknown RASH Verified 05/03/23 16:29 Antibiotics) morphine [MORPHINE] AdvReac Severe NAUSEA Verified 05/03/23 16:29 aspirin [Aspirin] AdvReac Mild STOMACH Verified 05/03/23 16:29 UPSET Active Medications: Current Medications Acetaminophen (Acetaminophen 325 Mg Tablet) 650 mg PO Q6H PRN PRN Reason: Pain, Mild (Pain Scale 1-3) Amlodipine Besylate (Amlodipine Besylate 5 Mg Tablet) 5 mg PO DAILY [facility]; Protocol Last Admin: 05/11/23 09:24 Dose: Not Given Atorvastatin Calcium (Atorvastatin Calcium 20 Mg Tablet) 20 mg PO DAILY [facility] Last Admin: 05/11/23 09:25 Dose: Not Given Hydromorphone HCl (Hydromorphone Hcl 0.5 Mg/0.5 Ml Syringe) 0.5 mg IVPUSH Q4H PRN; Protocol PRN Reason: Pain, Severe (Pain Scale 7-10) Last Admin: 05/11/23 03:08 Dose: 0.5 mg Levofloxacin (Levaquin) 500 mg in 100 mls @ 80 mls/hr IV Q24H [facility]STIDES Last Infusion: 05/10/23 19:05 Dose: Infused Metronidazole (Flagyl) 500 mg in 100 mls @ 100 mls/hr IV Q6H [facility] Last Infusion: 05/11/23 10:41 Dose: Infused Lisinopril (Lisinopril 10 Mg Tablet) 30 mg PO DAILY [facility]; Protocol Last Admin: 05/11/23 09:25 Dose: Not Given Metoprolol Succinate (Metoprolol Succinate Er 50 Mg Tab.Er.24h) 150 mg PO DAILY [facility]; Protocol Last Admin: 05/11/23 09:25 Dose: Not Given Omeprazole (Omeprazole 20 Mg Capsule.Dr) 20 mg PO DAILY@0630 [facility] Last Admin: 05/11/23 06:40 Dose: Not Given Ondansetron HCl (Ondansetron Hcl 4 Mg/2 Ml Vial) 4 mg IVPUSH Q8H PRN PRN Reason: Nausea and Vomiting Last Admin: 05/10/23 20:41 Dose: 4 mg Simethicone (Simethicone 80 Mg Tab.Chew) 160 mg PO QIDWMHS PRN PRN Reason: Gas Last Admin: 05/10/23 16:20 Dose: 160 mg Sodium Chloride (0.9 % Sodium Chloride Flush 3 Ml Syringe) 3 ml IVFLUSH QSHIFT [facility] Last Admin: 05/11/23 09:24 Dose: 3 ml Trazodone HCl (Trazodone Hcl 100 Mg Tablet) 200 mg PO BEDTIME [facility] Last Admin: 05/10/23 20:41 Dose: 200 mg Home Medications Medication Instructions Recorded Confirmed Last Taken Type amlodipine 5 mg tablet 5 mg PO DAILY 03/01/23 05/04/2323 History atorvastatin 20 mg tablet 20 mg PO DAILY 03/01/23 05/04/23 05/04/23 History esomeprazole magnesium 40 mg 40 mg PO DAILY 03/01/23 05/04/23 05/04/23 History capsule,delayed release (Nexium) hydrochlorothiazide 25 mg tablet 25 mg PO DAILY 03/01/23 05/04/23 05/04/23 History lisinopril 30 mg tablet 30 mg PO DAILY 03/01/23 05/04/23 05/04/23 History metoprolol succinate 100 mg 150 mg PO DAILY 03/01/23 05/04/23 05/04/23 History tablet,extended release 24 hr trazodone 100 mg tablet 200 mg PO BEDTIME 03/01/23 05/04/23 05/03/23 History calcium carbonate 500 mg calcium 500 mg PO DAILY 05/04/23 05/04/23 05/04/23 History (1,250 mg) tablet multivitamin 1 tab PO DAILY 05/04/23 05/04/23 05/04/23 History Physical Exam 2 Vital Signs: Vital Signs: Last Vital Signs Temp 97.5 F 05/11/23 10:34 Pulse 85 05/11/23 10:34 Resp 16 05/11/23 10:34 BP 105/57 L 05/11/23 10:34 Pulse Ox 95 05/11/23 10:34 O2 Del Method Room Air 05/11/23 10:34 BMI result Body Mass Index 30.0 Const: General: cooperative, healthy appearing and no acute distress O rientation/consciousness: patient oriented x3 HEENT: Head: Yes normal to inspection, Yes normocephalic and Yes atraumatic Eyes: Conjunctivae: conjunctivae normal Neck: Neck: Yes normal visual inspection and Yes trachea midline Chest: Chest palpation & inspection: normal inspection of the chest Resp: Effort & Inspection: normal respiratory effort Cardio: Rate: regular rate GI: Palpation (GI): Tenderness to palpation present (GI) Skin: General skin exam: no rashes or lesions noted Neuro: General: patient oriented x3 Extrem: General: No edema Psych: Appearance: grossly normal Results Labs 05/08/23 05:43 05/08/23 05:43 Labs: Urine 05/04/23 Range/Units 13:27 Urine Color Yellow Urine Appearance Turbid Urine pH 5.5 (5.0-9.0) Ur Specific [place] 1.020 (1.005-1.025) Urine Protein 300 (3+) H (Neg-Trace) mg/dL Urine Glucose (UA) Negative (Negative) mg/dL All other labs normal. Imaging Additional studies: Date of Service: 05/04/23 EXAMINATION: CT ABDOMEN AND PELVIS WITHOUT CONTRAST CLINICAL INFORMATION: Abdominal pain. Constipation. COMPARISON: 08/09/2019 TECHNIQUE: Multidetector volumetric imaging was performed from the superior aspect of the liver through the pubic symphysis. Sagittal and coronal reformatted images were obtained on the technologist's workstation. This CT examination was performed using dose optimization techniques as appropriate, variously including the following: *Automated exposure control *Adjustment of mA and/or kV according to patient size (this includes techniques or standardized protocols for targeted exams where dose is matched to indication/reason for exam; i.e. extremities or head) *Use of iterative reconstruction technique DLP: 523 mGy-cm FINDINGS: LUNG BASES: No pleural or pericardial effusion. LIVER, GALLBLADDER, AND BILIARY TREE: The noncontrast liver is nodular. No biliary ductal dilatation is present. The gallbladder is unremarkable with no evidence of radiopaque gallstones, gallbladder wall thickening, or obvious pericholecystic inflammatory changes. PANCREAS: Atrophic. SPLEEN: Not enlarged. ADRENAL GLANDS: No adrenal mass. KIDNEYS AND URETERS: The kidneys are symmetric in size. No hydronephrosis or perinephric stranding. BLADDER: Focal wall thickening at the bladder dome in direct contiguity with a collection containing gas and fluid measuring 3.6 x 3.9 x 3.7 cm on image 67 of series 3. GASTROINTESTINAL TRACT: There is marked wall thickening of the sigmoid colon with pericolonic stranding. There is an associated fluid collection containing gas in the midline pelvis measuring 5.9 x 3.4 x 4.5 cm on image 62 of series 3. There is diverticular disease of the descending and sigmoid colon. No small bowel obstruction. Appendix is within normal limits. ABDOMINAL WALL: No significant hernia is appreciated. LYMPH NODES: No bulky abdominal or pelvic lymphadenopathy. VASCULAR: Normal caliber abdominal aorta. PELVIC VISCERA: Small free fluid in the pelvis. No large adnexal masses are appreciated. OSSEOUS STRUCTURES: No destructive bone lesions. IMPRESSION: Findings likely representing perforated acute diverticulitis with fistulization to the urinary bladder. Fluid collection at the dome of the urinary bladder containing gas measures 3.6 x 3.7 x 3.9 cm. Fluid collection in the midline pelvis containing gas measures 5.9 x 3.4 x 4.5 cm. Surgical consultation is recommended. Findings were reviewed and discussed with Hiwot MORIN at 1:15 PM on 05/04/2023. Nodular liver. This may represent chronic liver disease. Advise clinical correlation. Assessment and Plan (1) Colonic diverticular abscess: Status: Acute (2) Colovesical fistula: Status: Acute Plan Cystoscopy Left retrograde, left Ureteral stent possibe bilateral, perez Time Spent With Patient Time: Total time managing care of this patient today ____ minutes. Procedures Date of Service Date of Service: 05/11/23
--- NOTE | 2023-05-11 11:50 | MHC.SHP ---
Pre-Procedural Eval Section A Date of Service: 05/11/23 The patient is an INPATIENT: Yes Section B Chief Complaint: Sigmoid Diverticulitis w/Abscess Allergies: Allergies Allergy/AdvReac Type Severity Reaction Status Date / Time amoxicillin [Augmentin] Allergy Unknown GI, Verified 05/03/23 16:29 Difficulty breathing clavulanic acid [Augmentin] Allergy Unknown GI, Verified 05/03/23 16:29 Difficulty breathing codeine [CODEINE] Allergy Unknown SENSITIVIT Verified 05/03/23 16:29 Y erythromycin base Allergy Unknown GI, DIFF Verified 05/03/23 16:29 [Erythromycin Base] BREATHING NSAIDS (Non-Steroidal Allergy Unknown GI UPSET Verified 05/03/23 16:29 Anti-Inflamma [NSAIDS (NON-STEROIDAL ANTI-INFLAMMA] shellfish derived Allergy Unknown Sensitivity Verified 05/03/23 16:29 Sulfa (Sulfonamide Allergy Unknown RASH Verified 05/03/23 16:29 Antibiotics) morphine [MORPHINE] AdvReac Severe NAUSEA Verified 05/03/23 16:29 aspirin [Aspirin] AdvReac Mild STOMACH Verified 05/03/23 16:29 UPSET Plan Diagnosis/Plan: Unchanged I have reviewed the history and physical and performed a pertinent physical examination on my patient. No changes have occurred unless specified. Cystoscopy Left ureteral stent/retrograde possible bilateral. Time Spent With Patient Time: Total time managing care of this patient today ____ minutes.
--- NOTE | 2023-05-11 13:51 | P.OP_ITS ---
Operative Note Operative Note Date of Service: 05/11/23 Narrative: PreOperative Diagnosis:?? Diverticular disease, colovesical fistula Post Operative Diagnosis:?? ?Diverticular disease, colovesical fistula Procedure: - cystoscopy, left retrograde, left open-ended ureteral stent placement Surgeon:?Dr Haritha Fisher Anesthesia:? General Indications for procedure: The patient has a history of diverticulitis, presented with abdominal pain and gross hematuria, CT imaging consistent with colovesical fistula. Procedure: After informed consent was verified the patient was brought to the operating placed on the OR table in supine position.? General Anesthesia was administered per protocol.? The patient was placed in lithotomy position, prepped and draped in the usual sterile fashion.? Safety pause time-out and side of surgery confirmed.? A 22 Russian cystoscope with obturator was inserted transurethrally, The bladder was visualized.? there was fecal material noted in the bladder. the trigone was visualized. Both ureteric orifices were in normal position. The?ureteric orifice was identified and cannulated? and a retrograde examination was performed, the distal and mid ureter was visualized, A hydrophilic guidewire was placed up to the level of the renal pelvis and the 5 fr open-ended ureteral stent was passed over the guidewire to the renal pelvis. The cystoscope was removed leaving the ureteral stent in place. The cystoscope was replaced into the bladder and further evaluation of the bladder noted a small fistulous tract on the left posterior bladder wall. The bladder was emptied.? The rigid cystoscope was removed. ? A Erwin catheter was placed. The open-ended catheter was attached to the Erwin bag. Complications: None Drains: 16 Russian Erwin, 5 Russian open-ended ureteral stent
--- NOTE | 2023-05-11 14:25 | P.CONAN_ITS ---
HPI - Anesthesia Eval Consult details Narrative: 63 F w/ colovesicle fistula PMFSH Active Problems Active Problems: All Active Problems (Updated 05/11/23 @ 11:47 by Haritha Fisher MD) Colovesical fistula (Acute) Colonic diverticular abscess (Acute) Perforated diverticulum (Acute) Bladder fistula (Acute) Irritable bowel syndrome with constipation (Acute) Hiatal hernia (Acute) Diverticulosis (Acute) Past Medical History Medical History Hypertension Barretts esophagus GERD (gastroesophageal reflux disease) Family History Family History Father Colon cancer Paternal Aunt Colon cancer Family history of problems with anesthesia: No Surgical History Surgical History History of esophagogastroduodenoscopy (EGD) Hx of colonoscopy History of Problems with Anesthesia: No Social History Social History Household Members: None Housing: House Do you presently have visiting nurse or other home services: No Alcohol intake: never Patient Tobacco Use Status: Current everyday Tobacco user Tobacco use type: Cigarette Cigarette Packs Per Day: 0.5 Cigarettes Per Day: 10.0 Years Smoked: 30 Smoked in Last 30 Days: Yes e-Cigarette/Vaping Use: Never Used Patient Interested in Nicotine Replacement: No Patient Given Instructions on How to Stop Smoking: Yes Date Education Initiated: 05/04/23 Use of substances other than those prescribed or required for medical reasons: Yes Substance Use Type: Marijuana Substance Use Frequency: Daily Last Used Substance: Just Prior to Admission Currently Displaying Signs/Symptoms of Drug Intoxication Withdrawal: No Any prior treatment program specific to substance use: No Have you been hit, kicked, punched, or otherwise hurt by someone within the past year? If so, by whom?: No Do you feel safe in your current relationship?: No Current Relationship Is there a partner from a previous relationship who is making you feel unsafe now?: No Are you made to feel afraid or neglected: No Are you DNR?: No Advance Directives: No Advance Directives on File: No Do you have thoughts of harming others: None Do you have a plan to hurt others: No Plan Recently lost weight without trying: Yes How much weight loss: 14-23 pounds Eating poorly because of decreased appetite: Yes Nutrition screen score: 5 Nutrition Risks: Acute nausea or vomiting x1 week and Poor intake 0-25% >4 days Patient : No : No Poor oral hygiene: No Meds Allergies Allergy/AdvReac Type Severity Reaction Status Date / Time amoxicillin [Augmentin] Allergy Unknown GI, Verified 05/03/23 16:29 Difficulty breathing clavulanic acid [Augmentin] Allergy Unknown GI, Verified 05/03/23 16:29 Difficulty breathing codeine [CODEINE] Allergy Unknown SENSITIVIT Verified 05/03/23 16:29 Y erythromycin base Allergy Unknown GI, DIFF Verified 05/03/23 16:29 [Erythromycin Base] BREATHING NSAIDS (Non-Steroidal Allergy Unknown GI UPSET Verified 05/03/23 16:29 Anti-Inflamma [NSAIDS (NON-STEROIDAL ANTI-INFLAMMA] shellfish derived Allergy Unknown Sensitivity Verified 05/03/23 16:29 Sulfa (Sulfonamide Allergy Unknown RASH Verified 05/03/23 16:29 Antibiotics) morphine [MORPHINE] AdvReac Severe NAUSEA Verified 05/03/23 16:29 aspirin [Aspirin] AdvReac Mild STOMACH Verified 05/03/23 16:29 UPSET Active Medications: Current Medications Acetaminophen (Acetaminophen 325 Mg Tablet) 650 mg PO Q6H PRN PRN Reason: Pain, Mild (Pain Scale 1-3) Amlodipine Besylate (Amlodipine Besylate 5 Mg Tablet) 5 mg PO DAILY [facility]; Protocol Last Admin: 05/11/23 09:24 Dose: Not Given Atorvastatin Calcium (Atorvastatin Calcium 20 Mg Tablet) 20 mg PO DAILY [facility] Last Admin: 05/11/23 09:25 Dose: Not Given Hydromorphone HCl (Hydromorphone Hcl 0.5 Mg/0.5 Ml Syringe) 0.5 mg IVPUSH Q4H PRN; Protocol PRN Reason: Pain, Severe (Pain Scale 7-10) Last Admin: 05/11/23 03:08 Dose: 0.5 mg Levofloxacin (Levaquin) 500 mg in 100 mls @ 80 mls/hr IV Q24H [facility] Last Infusion: 05/10/23 19:05 Dose: Infused Metronidazole (Flagyl) 500 mg in 100 mls @ 100 mls/hr IV Q6H [facility] Last Infusion: 05/11/23 10:41 Dose: Infused Lisinopril (Lisinopril 10 Mg Tablet) 30 mg PO DAILY [facility]; Protocol Last Admin: 05/11/23 09:25 Dose: Not Given Metoprolol Succinate (Metoprolol Succinate Er 50 Mg Tab.Er.24h) 150 mg PO DAILY [facility]; Protocol Last Admin: 05/11/23 09:25 Dose: Not Given Omeprazole (Omeprazole 20 Mg Capsule.Dr) 20 mg PO DAILY@0630 [facility] Last Admin: 05/11/23 06:40 Dose: Not Given Ondansetron HCl (Ondansetron Hcl 4 Mg/2 Ml Vial) 4 mg IVPUSH Q8H PRN PRN Reason: Nausea and Vomiting Last Admin: 05/10/23 20:41 Dose: 4 mg Simethicone (Simethicone 80 Mg Tab.Chew) 160 mg PO QIDWMHS PRN PRN Reason: Gas Last Admin: 05/10/23 16:20 Dose: 160 mg Sodium Chloride (0.9 % Sodium Chloride Flush 3 Ml Syringe) 3 ml IVFLUSH QSHIFT [facility] Last Admin: 05/11/23 09:24 Dose: 3 ml Trazodone HCl (Trazodone Hcl 100 Mg Tablet) 200 mg PO BEDTIME [facility] Last Admin: 05/10/23 20:41 Dose: 200 mg Home Medications Medication Instructions Recorded Confirmed Last Taken Type amlodipine 5 mg tablet 5 mg PO DAILY 03/01/23 05/04/23 05/04/23 History atorvastatin 20 mg tablet 20 mg PO DAILY 03/01/23 05/04/23 05/04/23 History esomeprazole magnesium 40 mg 40 mg PO DAILY 03/01/23 05/04/23 05/04/23 History capsule,delayed release (Nexium) hydrochlorothiazide 25 mg tablet 25 mg PO DAILY 03/01/23 05/04/23 05/04/23 History lisinopril 30 mg tablet 30 mg PO DAILY 03/01/23 05/04/23 05/04/23 History metoprolol succinate 100 mg 150 mg PO DAILY 03/01/23 05/04/23 05/04/23 History tablet,extended release 24 hr trazodone 100 mg tablet 200 mg PO BEDTIME 03/01/23 05/04/23 05/03/23 History calcium carbonate 500 mg calcium 500 mg PO DAILY 05/04/23 05/04/23 05/04/23 History (1,250 mg) tablet multivitamin 1 tab PO DAILY 05/04/23 05/04/23 05/04/23 History Exam Exam Date and Time: May 11, 2023 1425 Height,Weight and Vital Signs: Height 5 ft 2 in Weight 164 lb 3.91 oz Last Vital Signs Temp 97.5 F 05/11/23 10:34 Pulse 85 05/11/23 10:34 Resp 16 05/11/23 10:34 BP 105/57 L 05/11/23 10:34 Pulse Ox 95 05/11/23 10:34 O2 Del Method Room Air 05/11/23 10:34 Pertinent Lab Results Pertinent Lab Results: Laboratory Tests 05/04/23 05/04/23 05/04/23 11:59 13:16 13:27 WBC 21.2 H RBC 3.97 L Hgb 10.9 L Hct 33.2 L MCV 83.6 MCH 27.5 MCHC 32.8 RDW 13.7 Plt Count 461 H D MPV 8.6 L Immature Gran % (Auto) 0.7 H Neut % (Auto) 77.6 H Lymph % (Auto) 14.5 L [place] % (Auto) 6.3 Eos % (Auto) 0.6 Baso % (Auto) 0.3 Lymph # (Auto) 3.1 [place] # (Auto) 1.3 H Eos # (Auto) 0.1 Baso # (Auto) 0.1 Abs Immat Gran (auto) 0.14 H Absolute Neuts (auto) 16.5 H Absolute Nucleated RBC 0.000 Nucleated RBC % (auto) 0.0 Smear Tech's Comments PT INR Sodium 135 Potassium 3.2 L Chloride 97 Carbon Dioxide 26 Anion Gap 15 BUN 19 H Creatinine 0.69 Estim Creat Clear Calc 75.7 Estimated GFR > 60 Random Glucose 80 Fasting Glucose Lactic Acid Calcium 8.9 Magnesium 2.2 Total Bilirubin 0.3 Direct Bilirubin 0.1 AST 15 ALT 11 Alkaline Phosphatase 93 Total Protein 7.1 Albumin 2.9 L Urine Color Yellow Urine Appearance Turbid Urine pH 5.5 Ur Specific Lissie 1.020 Urine Protein 300 (3+) H Urine Glucose (UA) Negative Urine Ketones 15 Urine Blood Large (3+) H Urine Nitrite Positive H Ur Leukocyte Esterase Large (3+) H Urine RBC >20 H Urine WBC >50 H Urine WBC Clumps Present Ur Squamous Epith Cells >20 Urine Bacteria 4+ Hyaline Casts 3-5 Blood Type Antibody Screen 05/04/23 05/04/23 05/05/23 13:44 15:37 05:59 WBC 15.9 H RBC 3.37 L Hgb 9.2 L Hct 29.2 L MCV 86.6 MCH 27.3 MCHC 31.5 RDW 13.8 Plt Count 407 H MPV 8.7 L Immature Gran % (Auto) 0.8 H Neut % (Auto) 77.7 H Lymph % (Auto) 12.6 L [place] % (Auto) 7.8 Eos % (Auto) 0.8 Baso % (Auto) 0.3 Lymph # (Auto) 2.0 [place] # (Auto) 1.2 Eos # (Auto) 0.1 Baso # (Auto) 0.1 Abs Immat Gran (auto) 0.13 H Absolute Neuts (auto) 12.3 H Absolute Nucleated RBC 0.000 Nucleated RBC % (auto) 0.0 Smear Tech's Comments PT 15.2 H INR 1.3 H Sodium 139 Potassium 3.0 L Chloride 105 Carbon Dioxide 22 Anion Gap 15 BUN 9 Creatinine 0.56 Estim Creat Clear Calc 95.9 Estimated GFR > 60 Random Glucose 78 Fasting Glucose Lactic Acid 1.1 Calcium 8.2 L D Magnesium 1.8 Total Bilirubin Direct Bilirubin AST ALT Alkaline Phosphatase Total Protein Albumin Urine Color Urine Appearance Urine pH Ur Specific Lissie Urine Protein Urine Glucose (UA) Urine Ketones Urine Blood Urine Nitrite Ur Leukocyte Esterase Urine RBC Urine WBC Urine WBC Clumps Ur Squamous Epith Cells Urine Bacteria Hyaline Casts Blood Type Antibody Screen 05/06/23 05/08/23 05/10/23 05:40 05:43 16:41 WBC 12.6 H 14.1 H RBC 3.20 L 3.77 L Hgb 8.8 L 10.0 L Hct 27.6 L 32.5 L MCV 86.3 86.2 MCH 27.5 26.5 L MCHC 31.9 30.8 L RDW 13.7 14.0 Plt Count 396 388 MPV 8.7 L 9.9 Immature Gran % (Auto) 0.8 H 0.9 H Neut % (Auto) 72.5 73.4 H Lymph % (Auto) 15.6 L 16.3 L [place] % (Auto) 9.0 7.6 Eos % (Auto) 1.8 1.5 Baso % (Auto) 0.3 0.3 Lymph # (Auto) 2.0 2.3 [place] # (Auto) 1.1 1.1 Eos # (Auto) 0.2 0.2 Baso # (Auto) 0.0 0.0 Abs Immat Gran (auto) 0.10 H 0.13 H Absolute Neuts (auto) 9.1 H 10.3 H Absolute Nucleated RBC 0.000 0.000 Nucleated RBC % (auto) 0.0 0.0 Smear Tech's Comments VERIFIED PT INR Sodium 141 141 Potassium 3.2 L 3.5 Chloride 107 108 Carbon Dioxide 23 24 Anion Gap 14 13 BUN 5 L 4 L Creatinine 0.48 L 0.55 Estim Creat Clear Calc 111.9 97.6 Estimated GFR > 60 > 60 Random Glucose 103 Fasting Glucose 83 Lactic Acid Calcium 8.0 L 8.1 L Magnesium Total Bilirubin Direct Bilirubin AST ALT Alkaline Phosphatase Total Protein Albumin Urine Color Urine Appearance Urine pH Ur Specific Lissie Urine Protein Urine Glucose (UA) Urine Ketones Urine Blood Urine Nitrite Ur Leukocyte Esterase Urine RBC Urine WBC Urine WBC Clumps Ur Squamous Epith Cells Urine Bacteria Hyaline Casts Blood Type O Positive Antibody Screen NEGATIVE Airway Mallampati Class: II TM Dist: >3cm Neck ROM: Full Loose/Missing/Broken Teeth: Yes Assessment and Plan Assessment Anesthesia Assessment: Anesthesia Plan Discussed and Chart Reviewed Final Anesthetic Review Family History of Problems with Anesthesia: No History of Problems with Anesthesia: No NPO: Yes ASA Class: III Final Preanesthetic Review: No Changes in Pt Med Stat, Meds/Allgs Chart Reviewed, Consent Obtained/Reviewed and Anes Risks/Benef Reviewed Patient Risk: Intermediate Procedure Risk: Intermediate Anesthetic Plan Anesthetic Plan: GA and Regional Block Disposition: Standard PACU
--- NOTE | 2023-05-11 16:18 | W.PM.OPN ---
Operative Note Operative Note Date of Service: 05/11/23 Narrative: Preoperative diagnosis Colovesicular fistula, acute diverticulitis Postop diagnosis: Same, complex pelvic abscess involving sigmoid colon, small bowel, pelvic sidewall, uterus, and bladder. Procedure : exploratory laparotomy, extensive enterolysis, sigmoid resection, takedown splenic flexure, and colostomy, Tye's pouch, enterectomy with primary anastomosis of distal small bowel, drainage pelvic abscess, retrograde injection of methylene blue contrast through Erwin catheter (ureteral stent per Dr. Kenneth Love dictation) Surgeon: Kadeem, Advertising Account Representative: Jordon Type of Anesthesia: General Indication for surgery: Dense and extensive adhesions and cicatrization involving distal small bowel, sigmoid colon, uterus, bladder, and left pelvic sidewall, all of which contained an abscess involving the colon and the dome of the urinary bladder wall Procedure; Patient brought to the operating room, placed on table supine position, after adequate level of general anesthesia was induced, patient was placed in lithotomy position. Please refer to Dr. Kenneth Love's dictation regarding ureteral stent placement. Once this was completed, the patient's abdomen and perineum were prepped and draped in usual sterile fashion. Using a lower midline incision, this carried down through skin, subcutaneous tissue, and linia alba. Posterior fascia and perineum were opened and extended along length of the incision. Packs and retractors were placed to enhance exposure. Findings were as noted above. Patient had an intense inflammatory phlegmonous mass/complex abscess cavity involving the sigmoid colon, bladder, uterus, distal small bowel, pelvic sidewall and left ovary and fallopian tube.. This was all meticulously taken down using blunt and sharp dissection. The sigmoid colon involved in this pathology was markedly thickened and acutely and chronically inflamed. This extended down to the rectosigmoid junction. Because of such inflammatory and profoundly infectious findings, it was decided that a primary anastomosis would not be performed because of concern of healing and possible breakdown. Sigmoid colon was transected proximally using CARLOS EDUARDO stapler at the left colon/sigmoid colon junction and mesentery sequentially taken down to the inflamed pelvic mass. Profoundly Dense adhesions of small-bowel involved in the abscess mass was taken down and the involved small bowel segment was markedly thickened and inflamed and there was concern for the viability and stricture. It was decided to resect this small segment of small bowel and perform primary anastomosis. CARLOS EDUARDO staplers were used to resect the involved distal small bowel measuring approximately 12 cm. @ the desired locations. Mesentery was taken down using double firing ligature device. The retroperitoneum was never broached/entered during dissection. A functional end-to-end anastomosis using CARLOS EDUARDO 60 and TA 60 staplers was uneventfully performed. Anastomosis was patent. Crotch of the anastomosis was buttressed using interrupted 2-0 silk sutures. Mesenteric defect was reapproximated using interrupted 3-0 Vicryl sutures. Next the sigmoid colon was further dissected down to the rectosigmoid junction with this mesentery sequentially taken down ,again using double firing of ligature device.. At this area, this markedly phlegmonous thickened inflamed colon was from the proximal rectum at the rectosigmoid junction. This pathological segment of sigmoid colon as intimately adhered to the bladder, uterus, left fallopian tube and ovary and from them. Specimen was then sent to pathology. Rectal stump was oversewn using interrupted 2-0 silk sutures. . No obvious fistula was demonstrated on the dome of the markedly thickened inflamed phlegmonous bladder.. The bladder was retrogradely filled with methylene blue saline and no obvious leak was demonstrated. Left colon was then mobilized by taking down the lateral peritoneal reflection up to the splenic flexure. With adequately mobilized left colon, through the left lower quadrant muscle-splitting incision, and ostomy was fashioned and the colon with appropriate orientation was brought out through the ostomy. Seromuscular to dermal interrupted circumferential 3-0 Vicryl sutures were used to secure the ostomy,which was pink and viable. Bowel was run and no other defects were demonstrated. Next the abdominal cavity was very copiously irrigated and secured hemostasis. Through a separate stab wound incision in the right lower quadrant, a Alejandro-Jackson drain was entered the abdominal cavity and placed into the pelvis in the area of the abscess cavity. This was secured to skin using 2-0 nylon suture. Abdominal cavity was once again copiously irrigated and secured hemostasis. Wound was closed in the following manner; mass closure using looped 1. PDS was used to close the fascia in mass closure fashion. Skin was closed using widely spaced interrupted inverted dermal 3-0 Vicryl sutures followed by skin edwin and a dressing applied. Ostomy had its staple line opened using Bovie and it was pink and viable. Ostomy appliance was applied. Sponge, needle, instrument counts reported correct. Patient tolerated the procedure and emerged anesthesia in stable condition, to continue restorative measures in the RR. EBL between 250 and 300 cc.
[2023-05-11] MEDS: Phenylephrine HCL 20 MG in 0.9 % Sodium Chloride 250 ML 16.9 MG IVCONT (17:00)
--- NOTE | 2023-05-11 17:14 | PM.CCHP ---
History of Present Illness Date of Service: 05/11/23 Attending physician on admission: Etta Garcia Chief Complaint: Hypotension, s/p Sigmoidectomy Patient is a 63 Y F with hypertension, prior sigmoid diverticulitis, p/w LLQ pain, found to have recurrent sigmoid diverticulitis, c/b abscess and colovesical fistula, s/p ureter stent placement, sigmoidectomy, and colostomy 05/11; intra-operatively, EBL 200 mL, 2 L crystalloid given; patient tolerated procedure well, extubated, though persistently hypotensive in PACU, prompting ICU admission Review of Systems Review of Systems: Yes all other systems are reviewed and are negative Cardiovascular: Cardiovascular: Reports no additional cardiovascular complaints Gastrointestinal: Gastrointestinal: Reports no additional gastrointestinal complaints Genitourinary: Genitourinary: Reports no additional female genitourinary complaints Musculoskeletal: Musculoskeletal: Reports no additional musculoskeletal complaints Neurologic: Reports system reviewed and no additional complaints, except as documented PMF Past Medical History Medical History Hypertension Barretts esophagus GERD (gastroesophageal reflux disease) Family History Family History Father Colon cancer Paternal Aunt Colon cancer Surgical History Surgical History History of esophagogastroduodenoscopy (EGD) Hx of colonoscopy Social History Social History Household Members: None Housing: House Do you presently have visiting nurse or other home services: No Alcohol intake: never Patient Tobacco Use Status: Current everyday Tobacco user Tobacco use type: Cigarette Cigarette Packs Per Day: 0.5 Cigarettes Per Day: 10.0 Years Smoked: 30 Smoked in Last 30 Days: Yes e-Cigarette/Vaping Use: Never Used Patient Interested in Nicotine Replacement: No Patient Given Instructions on How to Stop Smoking: Yes Date Education Initiated: 05/04/23 Use of substances other than those prescribed or required for medical reasons: Yes Substance Use Type: Marijuana Substance Use Frequency: Daily Last Used Substance: Just Prior to Admission Currently Displaying Signs/Symptoms of Drug Intoxication Withdrawal: No Any prior treatment program specific to substance use: No Have you been hit, kicked, punched, or otherwise hurt by someone within the past year? If so, by whom?: No Do you feel safe in your current relationship?: No Current Relationship Is there a partner from a previous relationship who is making you feel unsafe now?: No Are you made to feel afraid or neglected: No Are you DNR?: No Advance Directives: No Advance Directives on File: No Do you have thoughts of harming others: None Do you have a plan to hurt others: No Plan Recently lost weight without trying: Yes How much weight loss: 14-23 pounds Eating poorly because of decreased appetite: Yes Nutrition screen score: 5 Nutrition Risks: Acute nausea or vomiting x1 week and Poor intake 0-25% >4 days Patient : No : No Poor oral hygiene: No Meds Allergies Allergy/AdvReac Type Severity Reaction Status Date / Time amoxicillin [Augmentin] Allergy Unknown GI, Verified 05/03/23 16:29 Difficulty breathing clavulanic acid [Augmentin] Allergy Unknown GI, Verified 05/03/23 16:29 Difficulty breathing codeine [CODEINE] Allergy Unknown SENSITIVIT Verified 05/03/23 16:29 Y erythromycin base Allergy Unknown GI, DIFF Verified 05/03/23 16:29 [Erythromycin Base] BREATHING NSAIDS (Non-Steroidal Allergy Unknown GI UPSET Verified 05/03/23 16:29 Anti-Inflamma [NSAIDS (NON-STEROIDAL ANTI-INFLAMMA] shellfish derived Allergy Unknown Sensitivity Verified 05/03/23 16:29 Sulfa (Sulfonamide Allergy Unknown RASH Verified 05/03/23 16:29 Antibiotics) morphine [MORPHINE] AdvReac Severe NAUSEA Verified 05/03/23 16:29 aspirin [Aspirin] AdvReac Mild STOMACH Verified 05/03/23 16:29 UPSET Active Medications: Current Medications Acetaminophen (Acetaminophen 325 Mg Tablet) 650 mg PO Q6H PRN PRN Reason: Pain, Mild (Pain Scale 1-3) Acetaminophen (Acetaminophen 325 Mg Tablet) 650 mg PO Q6H PRN PRN Reason: Pain, Mild (Pain Scale 1-3) Amlodipine Besylate (Amlodipine Besylate 5 Mg Tablet) 5 mg PO DAILY [facility]; Protocol Last Admin: 05/11/23 09:24 Dose: Not Given Atorvastatin Calcium (Atorvastatin Calcium 20 Mg Tablet) 20 mg PO DAILY [facility] Last Admin: 09/07/23 09:25 Dose: Not Given Calcium Carbonate (Calcium Carbonate 500 Mg Tablet) 500 mg PO DAILY [facility] Hydrochlorothiazide (Hydrochlorothiazide 25 Mg Tablet) 25 mg PO DAILY [facility]; Protocol Hydromorphone HCl (Hydromorphone Hcl 0.5 Mg/0.5 Ml Syringe) 0.5 mg IVPUSH Q4H PRN; Protocol PRN Reason: Pain, Severe (Pain Scale 7-10) Last Admin: 05/11/23 03:08 Dose: 0.5 mg Hydromorphone HCl (Hydromorphone Hcl 0.5 Mg/0.5 Ml Syringe) 0.5 mg IVPUSH Q5M PRN; Protocol PRN Reason: Pain, Severe (Pain Scale 7-10) Levofloxacin (Levaquin) 500 mg in 100 mls @ 80 mls/hr IV Q24H [facility] Last Infusion: 05/10/23 19:05 Dose: Infused Metronidazole (Flagyl) 500 mg in 100 mls @ 100 mls/hr IV Q6H [facility] Last Infusion: 05/11/23 10:41 Dose: Infused Phenylephrine HCl 20 mg/ (Sodium Chloride) 252 mls @ 0 mls/hr IVCONT .Q0M [facility]; Protocol Last Admin: 05/11/23 17:00 Dose: 0.3 mcg/kg/min, 16.9 mls/hr Norepinephrine Bitartrate (Levophed) 8 mg in 250 mls @ 0 mls/hr IV .Q0M [facility]; Protocol Lactated Ringer's (Lr) 1,000 mls @ 999 mls/hr IV .Q1H1M [facility] Stop: 05/11/23 18:15 Lisinopril (Lisinopril 10 Mg Tablet) 30 mg PO DAILY [facility]; Protocol Last Admin: 05/11/23 09:25 Dose: Not Given Metoprolol Succinate (Metoprolol Succinate Er 50 Mg Tab.Er.24h) 150 mg PO DAILY [facility]; Protocol Last Admin: 05/11/23 09:25 Dose: Not Given Multivitamins/Vitamin C (Multivitamin Tablet) 1 tab PO DAILY [facility] Omeprazole (Omeprazole 20 Mg Capsule.Dr) 20 mg PO DAILY@0630 [facility] Last Admin: 05/11/23 06:40 Dose: Not Given Ondansetron HCl (Ondansetron Hcl 4 Mg/2 Ml Vial) 4 mg IVPUSH Q8H PRN PRN Reason: Nausea and Vomiting Last Admin: 05/10/23 20:41 Dose: 4 mg Ondansetron HCl (Ondansetron Hcl 4 Mg/2 Ml Vial) 4 mg IVPUSH ONCE PRN PRN Reason: Nausea and Vomiting Simethicone (Simethicone 80 Mg Tab.Chew) 160 mg PO QIDWMHS PRN PRN Reason: Gas Last Admin: 05/10/23 16:20 Dose: 160 mg Sodium Chloride (0.9 % Sodium Chloride Flush 3 Ml Syringe) 3 ml IVFLUSH [facility] Last Admin: 05/11/23 09:24 Dose: 3 ml Trazodone HCl (Trazodone Hcl 100 Mg Tablet) 200 mg PO BEDTIME [facility] Last Admin: 05/10/23 20:41 Dose: 200 mg Home Medications Medication Instructions Recorded Confirmed Last Taken Type amlodipine 5 mg tablet 5 mg PO DAILY 03/01/23 05/04/23 05/04/23 History atorvastatin 20 mg tablet 20 mg PO DAILY 03/01/23 05/04/23 05/04/23 History esomeprazole magnesium 40 mg 40 mg PO DAILY 03/01/23 05/04/23 05/04/23 History capsule,delayed release (Nexium) hydrochlorothiazide 25 mg tablet 25 mg PO DAILY 03/01/23 05/04/23 05/04/23 History lisinopril 30 mg tablet 30 mg PO DAILY 03/01/23 05/04/23 05/04/23 History metoprolol succinate 100 mg 150 mg PO DAILY 03/01/23 05/04/23 05/04/23 History tablet,extended release 24 hr trazodone 100 mg tablet 200 mg PO BEDTIME 03/01/23 05/04/23 05/03/23 History calcium carbonate 500 mg calcium 500 mg PO DAILY 05/04/23 05/04/23 05/04/23 History (1,250 mg) tablet multivitamin 1 tab PO DAILY 05/04/23 05/04/23 05/04/23 History Physical Exam Vital Signs: Vital Signs: Last Vital Signs Temp 97.5 F 05/11/23 16:45 Pulse 99 05/11/23 17:00 Resp 16 05/11/23 16:55 BP 77/44 L 05/11/23 17:00 Pulse Ox 98 05/11/23 16:55 O2 Del Method Simple Mask 05/11/23 16:55 O2 Flow Rate 4 05/11/23 16:55 BMI result Body Mass Index 30.0 Const: Other: fatigued, though easily arousable with verbal stimulus General: cooperative, no acute distress and well developed Orientation/consciousness: patient oriented x3 HEENT: Head: Yes normal to inspection, Yes normocephalic and Yes atraumatic Eyes: General: appearance normal, both eyes and all related structures Pupils: Equal, round and reactive pupils present Neck: Neck: Yes normal visual inspection and Yes supple Chest: Chest palpation & inspection: normal inspection of the chest Resp: Effort & Inspection: normal respiratory effort, able to speak in complete sentences and no respiratory distress Cardio: Rate: tachycardic Rhythm: regular rhythm Heart sounds: S1 normal heart sound present and S2 normal heart sound present GI: Other: appreciable colostomy with some blood in colostomy bag; midline incision with blood in drain; some tenderness to palpation, though no guarding, rebound throughout Skin: General skin exam: no rashes or lesions noted Neuro: General: patient oriented x3 and moves all extremities Cranial nerves: Yes Equal, round and reactive pupils present Extrem: General: Yes normal to inspection Psych: Appearance: grossly normal Results Labs 05/08/23 05:43 05/08/23 05:43 Labs: Laboratory Results - last 24 hr 05/10/23 16:41 Blood Type O Positive Antibody Screen NEGATIVE Assessment and Plan (1) Colovesical fistula: Status: Acute (2) Colonic diverticular abscess: Status: Acute (3) Perforated diverticulum: Status: Acute (4) Bladder fistula: Status: Acute Plan Patient is a 63 Y F with recurrent sigmoid diverticulitis, re-presenting with diverticulitis c/b abscess and colovesical fistula, s/p sigmoidectomy, colostomy, though persistent hypotension N: multimodal pain management w/ acetaminophen, hydromorphone PRN; avoid NSAIDs immediately post-op CV: hypotension; to follow-up CBC, lactate; POCUS demonstarting hyperdynamic LV, completely collapsible IVC; s/p 2 L in OR, 2 L in PACU; to continue aggressive volume replacement, in the meantime, to switch phenylephrine to norpinephrine gtt R: no acute issues GI: divericulitis c/b abscess and colovesical fistula, s/p sigmoidectomy, colostomy; to continue levofloxacin, metronidazole; nutrition: advance diet as tolerated : no acute issues H: no chemical DVT prophylaxis immediately post-op; SCDs ID: diverticulitis as above; to continue levofloxacin, metronidazole Time Spent With Patient Time: Total time managing care of this patient today 120 minutes.
[2023-05-11] MEDS: Lactated Ringers 1,000 ML 999 ML IV ×3 (17:15→20:56)
[2023-05-11] MEDS: Acetaminophen 1,000 MG/100 ML PIGGYBACK 400 MG IV (17:25)
--- NOTE | 2023-05-11 18:29 | PC.NURSE ---
see patient arrived to pacu see hypotension see trend see iv fluids see javon gtt as per . Anthony see shortly after resolution of map above 60mmhg see tylenol iv for pain see patient resting/sleeping intermittently and when waking stating belly sore, see seen by electronic engineering draftsperson and see transition to icu report provided.
[2023-05-11] MEDS: Norepinephrine Bitartrate/D5W 8 MG/250 ML PLAST..BAG 6.98 MG IV (18:34)
[2023-05-11] MEDS: levoFLOXacin/D5W 500 MG/100 ML PIGGYBACK 100 MG IV (18:36)
[2023-05-11 21:08] LABS: Hematocrit 23.8 % (37.0-47.0); Hemoglobin 7.8 g/dl (12.0-16.0); Mean Corpuscular HGB Conc 32.8 g/dl (31.0-35.0); Mean Corpuscular Hemoglobin 28.2 pg (27.0-33.0); Mean Corpuscular Volume 85.9 fL (80.0-98.0); Mean Platelet Volume 8.8 fL (9.4-12.3); Platelet Count 458 X10*3/uL (160-400); Red Blood Count 2.77 X10*6/uL (4.20-5.50); Red Cell Distribution Width 14.3 % (11.0-16.0)
[2023-05-11 21:09] LABS: Lactic Acid 1.8 mmol/L (0.5-2.0)
[2023-05-11 21:11] LABS: WBC ABN SCTR FOR CBC 1
[2023-05-11 21:12] LABS: Anion Gap 14 (12-20); Blood Urea Nitrogen 3 mg/dL (9-16); Calcium 7.2 mg/dL (8.4-10.2); Carbon Dioxide 23 mmol/L (22-29); Chloride 104 mmol/L (96-108); Creatinine Clr Calc Pharmacy 109.6; Estimated Glomerular Filt Rate > 60; Glucose Random 163 mg/dL (60-115); Potassium 2.6 mmol/L (3.3-5.1); Sodium 138 mmol/L (135-145)
[2023-05-11 21:18] LABS: White Blood Count 36.9 X10*3/uL (4.8-10.8)
[2023-05-11] MEDS: Lactated Ringers 1,000 ML 200 ML IVCONT (21:22)
[2023-05-11] MEDS: Potassium Chloride/H20 40 MEQ/100 ML PIGGYBACK 100 MEQ IV ×2 (21:31→22:56)
[2023-05-11 21:33] LABS: Band Neutrophils Percent 25 % (3-5); Lymphocytes Absolute Manual 0.7 X10*3/uL (1.2-4.9); Lymphocytes Percent Manual 2 % (20-40); Metamyelocytes Absolute 0.7 X10*3/uL; Metamyelocytes Percent 2 %; Monocytes Absolute Manual 0.7 X10*3/uL (0.1-1.2); Monocytes Percent Manual 2 % (2-11); Neutrophils Absolute Manual 34.7 X10*3/uL (2.0-8.3); Neutrophils Percent Manual 69 % (45-73); Toxic Vacuolation PRESENT
[2023-05-11 21:34] LABS: RBC Morphology NOTED
[2023-05-11 21:37] LABS: Burr Cells 2+ (3-5) /OIF; Macrocytosis 1+ (5-14) /OIF; Microcytosis 2+ (15-30) /OIF
[2023-05-11 21:38] LABS: Hypochromasia 1+ (5-14) /OIF; Platelet Estimate NORMAL (NORMAL); Platelet Morphology Comment NORMAL
[2023-05-11] MEDS: Metoprolol Tartrate 5 MG in 0.9 % Sodium Chloride 50 ML 240 MG IV (22:20)
[2023-05-11 22:32] LABS: Alanine Aminotransferase 7 U/L (0-31); Albumin Level 1.8 g/dL (3.5-5.0); Alkaline Phosphatase 56 U/L (39-117); Aspartate Amino Transferase 16 U/L (5-31); Bilirubin Direct 0.2 mg/dL (0.0-0.5); Bilirubin Total 0.3 mg/dL (0.0-1.0); Total Protein 4.4 g/dL (6.5-8.0)
[2023-05-11 22:46] LABS: Free T4 (Free Thyroxine) 1.43 ng/dL (0.71-1.85); Thyroid Stimulating Hormone 0.35 uIU/mL (0.32-4.0)
[2023-05-11] MEDS: Albumin Human 25 % 100 ML IV (22:56)
[2023-05-12] VITALS (43 sets, daily range): BP systolic 99–137; BP diastolic 52–86; PULSE 75–111; RESP 12–20; TEMP 35.8–36.9; O2SAT 89–99; BMI 35.6
[2023-05-12] MEDS: HYDROmorphone HCl 0.5 MG/0.5 ML SYRINGE 1 MG IVPUSH ×6 (00:02→19:54)
[2023-05-12] MEDS: Albumin Human 25 % 100 ML IV ×5 (00:03→10:29)
[2023-05-12] MEDS: 0.9 % Sodium Chloride Flush 3 ML SYRINGE IVFLUSH ×3 (00:06→17:04)
[2023-05-12 01:01] LABS: Mean Corpuscular HGB Conc 32.7 g/dl (31.0-35.0); Mean Corpuscular Hemoglobin 27.7 pg (27.0-33.0); Mean Corpuscular Volume 84.7 fL (80.0-98.0); Mean Platelet Volume 8.3 fL (9.4-12.3); Platelet Count 321 X10*3/uL (160-400); Red Blood Count 2.35 X10*6/uL (4.20-5.50); Red Cell Distribution Width 14.3 % (11.0-16.0)
[2023-05-12 01:11] LABS: White Blood Count 32.4 X10*3/uL (4.8-10.8)
[2023-05-12 01:12] LABS: Hematocrit 19.9 % (37.0-47.0); Hemoglobin 6.5 g/dl (12.0-16.0)
[2023-05-12 01:23] LABS: Alanine Aminotransferase 7 U/L (0-31); Albumin Level 2.9 g/dL (3.5-5.0); Alkaline Phosphatase 46 U/L (39-117); Anion Gap 14 (12-20); Aspartate Amino Transferase 14 U/L (5-31); Bilirubin Total 0.3 mg/dL (0.0-1.0); Blood Urea Nitrogen 3 mg/dL (9-16); Calcium 7.5 mg/dL (8.4-10.2); Carbon Dioxide 22 mmol/L (22-29); Chloride 106 mmol/L (96-108); Creatinine Clr Calc Pharmacy 94.2; Estimated Glomerular Filt Rate > 60; Glucose Random 179 mg/dL (60-115); Potassium 4.1 mmol/L (3.3-5.1); Sodium 138 mmol/L (135-145)
[2023-05-12] MEDS: Lactated Ringers 1,000 ML 999 ML IV (01:32)
[2023-05-12 01:34] LABS: Band Neutrophils Percent 12 % (3-5); Lymphocytes Absolute Manual 1.6 X10*3/uL (1.2-4.9); Lymphocytes Percent Manual 5 % (20-40); Monocytes Absolute Manual 0.3 X10*3/uL (0.1-1.2); Monocytes Percent Manual 1 % (2-11); Neutrophils Absolute Manual 30.5 X10*3/uL (2.0-8.3); Neutrophils Percent Manual 82 % (45-73)
[2023-05-12 01:35] LABS: Hypochromasia 1+ (5-14) /OIF; Platelet Estimate NORMAL (NORMAL); Platelet Morphology Comment NORMAL; Polychromasia 1+ (0-2) /OIF; RBC Morphology NOTED
[2023-05-12] MEDS: Lactated Ringers 1,000 ML 200 ML IVCONT ×5 (02:31→22:05)
[2023-05-12] MEDS: ondansetron HCL 4 MG/2 ML VIAL IVPUSH ×2 (04:08→11:54)
[2023-05-12 05:28] LABS: Mean Corpuscular HGB Conc 32.8 g/dl (31.0-35.0); Mean Corpuscular Hemoglobin 28.4 pg (27.0-33.0); Mean Corpuscular Volume 86.6 fL (80.0-98.0); Mean Platelet Volume 8.6 fL (9.4-12.3); Platelet Count 242 X10*3/uL (160-400); Red Blood Count 2.32 X10*6/uL (4.20-5.50); Red Cell Distribution Width 14.2 % (11.0-16.0); White Blood Count 23.4 X10*3/uL (4.8-10.8)
[2023-05-12 05:32] LABS: Hemoglobin 6.6 g/dl (12.0-16.0)
[2023-05-12 05:33] LABS: Hematocrit 20.1 % (37.0-47.0)
[2023-05-12 05:47] LABS: Alanine Aminotransferase 6 U/L (0-31); Albumin Level 3.4 g/dL (3.5-5.0); Alkaline Phosphatase 34 U/L (39-117); Anion Gap 14 (12-20); Aspartate Amino Transferase 13 U/L (5-31); Bilirubin Total 0.8 mg/dL (0.0-1.0); Blood Urea Nitrogen 3 mg/dL (9-16); Calcium 7.7 mg/dL (8.4-10.2); Carbon Dioxide 24 mmol/L (22-29); Chloride 105 mmol/L (96-108); Creatinine Clr Calc Pharmacy 101.2; Estimated Glomerular Filt Rate > 60; Glucose Random 198 mg/dL (60-115); Potassium 3.5 mmol/L (3.3-5.1); Sodium 139 mmol/L (135-145); Total Protein 5.1 g/dL (6.5-8.0)
[2023-05-12] MEDS: metroNIDAZOLE/NS 500 MG/100 ML PIGGYBACK 100 MG IV ×4 (05:49→23:31)
[2023-05-12 05:54] LABS: Band Neutrophils Percent 7 % (3-5); Lymphocytes Absolute Manual 1.9 X10*3/uL (1.2-4.9); Lymphocytes Percent Manual 8 % (20-40); Neutrophils Absolute Manual 21.5 X10*3/uL (2.0-8.3); Neutrophils Percent Manual 85 % (45-73)
[2023-05-12 05:55] LABS: Hypochromasia 1+ (5-14) /OIF; Platelet Estimate NORMAL (NORMAL); Platelet Morphology Comment NORMAL; Polychromasia 1+ (0-2) /OIF; RBC Morphology NOTED
[2023-05-12] MEDS: Norepinephrine Bitartrate/D5W 8 MG/250 ML PLAST..BAG 13.97 MG IV (05:55)
--- NOTE | 2023-05-12 07:52 | PC.NURSE ---
Son updated about patient status at approx 0745 -post op care in ICU, receiving blood & blood pressure support medication.
[2023-05-12] MEDS: Pantoprazole Sodium 40 MG/10 ML VIAL IVPUSH (08:08)
[2023-05-12 09:41] LABS: Hematocrit 24.1 % (37.0-47.0); Hemoglobin 7.9 g/dl (12.0-16.0)
--- NOTE | 2023-05-12 11:02 | MHC.CLN ---
F/U PT IS S/P SIGMOIDECTOMY DISCUSSED AT ROUNDS WITH PT WITH POOR PO X 8 DAYS DIET FOLLOWS: 05/05 C/L 05/06-05/09 F/L 05/10 C/L 05/11, 05/12 NPO PT REMAINS NPO AT THIS TIME PATIENT STATES THAT ENSURE IS TOO SWEET AND DOES NOT LIKE/WANT REPORTS USUAL MEAL PATTERN IS HIGHER PROTEIN FOODS PLUS VEGETABLES -PT PREFERS LOWER CARB AND NO SWEET FOODS WHEN DIET TO ADVANCE; RECOMMEND BLAND, LOW FIBER DIET WITH GELATEIN SUPPLEMENT TID FOLLOW FOR DIET ADVANCEMENT AND PO INTAKE
--- NOTE | 2023-05-12 11:14 | P.PNUR_ITS ---
Subjective Subjective Date of Service: 05/12/23 Interval history: POD #1. Awake, alert colovesical fistula, perez in place and will need to stay in for 10-[address] cystogram prior to removing perez. Physical Exam 2 Vital Signs: Vital Signs: Last Vital Signs Temp 98.4 F 05/12/23 08:21 Pulse 85 05/12/23 11:00 Resp 15 05/12/23 11:00 BP 102/52 L 05/12/23 11:00 Pulse Ox 93 05/12/23 11:00 O2 Del Method Nasal Cannula 05/12/23 11:00 O2 Flow Rate 1 05/12/23 11:00 BMI result Body Mass Index 35.6 Const: Orientation/consciousness: patient oriented x3 HEENT: Head: Yes normal to inspection, Yes normocephalic and Yes atraumatic Eyes: Conjunctivae: conjunctivae normal Neck: Neck: Yes normal visual inspection and Yes trachea midline Chest: Chest palpation & inspection: normal inspection of the chest Resp: Effort & Inspection: normal respiratory effort Cardio: Rate: regular rate GI: Inspection: Yes normal to inspection : Other: perez in place Skin: General skin exam: no rashes or lesions noted Neuro: General: patient oriented x3 Psych: Appearance: grossly normal Urology Results Labs 05/12/23 09:29 05/12/23 05:03 Labs: Laboratory Results - last 24 hr 05/10/23 05/11/23 05/12/23 16:41 20:25 00:54 WBC 36.9 H* 32.4 H* RBC 2.77 L D 2.35 L Hgb 7.8 L D 6.5 L* Hct 23.8 L D 19.9 L* MCV 85.9 84.7 MCH 28.2 27.7 MCHC 32.8 32.7 RDW 14.3 14.3 Plt Count 458 H 321 D MPV 8.8 L 8.3 L Immature Gran % (Auto) Cancelled Cancelled Neut % (Auto) Cancelled Cancelled Lymph % (Auto) Cancelled Cancelled [place] % (Auto) Cancelled Cancelled Eos % (Auto) Cancelled Cancelled Baso % (Auto) Cancelled Cancelled Lymph # (Auto) Cancelled Cancelled [place] # (Auto) Cancelled Cancelled Eos # (Auto) Cancelled Cancelled Baso # (Auto) Cancelled Cancelled Abs Immat Gran (auto) Cancelled Cancelled Absolute Neuts (auto) Cancelled Cancelled Absolute Nucleated RBC 0.000 0.000 Nucleated RBC % (auto) 0.0 0.0 Neutrophils % (Manual) 69 82 H Band Neutrophils % 25 H 12 H Lymphocytes % (Manual) 2 L 5 L Monocytes % (Manual) 2 1 L Metamyelocytes % 2 Abs Neuts (Manual) 34.7 H 30.5 H Lymphocytes # (Manual) 0.7 L 1.6 Monocytes # (Manual) 0.7 0.3 Metamyelocytes # 0.7 Toxic Vacuolation PRESENT Platelet Estimate NORMAL NORMAL Plt Morphology Comment NORMAL NORMAL RBC Morphology NOTED NOTED Polychromasia 1+ (0-2) Hypochromasia 1+ (5-14) 1+ (5-14) Microcytosis 2+ (15-30) Macrocytosis 1+ (5-14) [place] Cells 2+ (3-5) Smear Path Review SEE NOTE Sodium 138 138 Potassium 2.6 L D 4.1 D Chloride 104 106 Carbon Dioxide 23 22 Anion Gap 14 14 BUN 3 L 3 L Creatinine 0.49 L 0.57 Estim Creat Clear Calc 109.6 94.2 Estimated GFR > 60 > 60 Random Glucose 163 H 179 H Lactic Acid 1.8 Calcium 7.2 L D 7.5 L Total Bilirubin 0.3 0.3 Direct Bilirubin 0.2 AST 16 14 ALT 7 7 Alkaline Phosphatase 56 46 Total Protein 4.4 L 5.0 L Albumin 1.8 L 2.9 L TSH 0.35 Free T4 1.43 Random Cortisol 24.0 Blood Type O Positive Antibody Screen NEGATIVE Crossmatch See Detail 05/12/23 05/12/23 05:03 09:29 WBC 23.4 H RBC 2.32 L Hgb 6.6 L* 7.9 L Hct 20.1 L* 24.1 L MCV 86.6 MCH 28.4 MCHC 32.8 RDW 14.2 Plt Count 242 MPV 8.6 L Immature Gran % (Auto) Cancelled Neut % (Auto) Cancelled Lymph % (Auto) Cancelled [place] % (Auto) Cancelled Eos % (Auto) Cancelled Baso % (Auto) Cancelled Lymph # (Auto) Cancelled [place] # (Auto) Cancelled Eos # (Auto) Cancelled Baso # (Auto) Cancelled Abs Immat Gran (auto) Cancelled Absolute Neuts (auto) Cancelled Absolute Nucleated RBC 0.000 Nucleated RBC % (auto) 0.0 Neutrophils % (Manual) 85 H Band Neutrophils % 7 H Lymphocytes % (Manual) 8 L Monocytes % (Manual) Metamyelocytes % Abs Neuts (Manual) 21.5 H Lymphocytes # (Manual) 1.9 Monocytes # (Manual) Metamyelocytes # Toxic Vacuolation Platelet Estimate NORMAL Plt Morphology Comment NORMAL RBC Morphology NOTED Polychromasia 1+ (0-2) Hypochromasia 1+ (5-14) Microcytosis Macrocytosis Pasquale Cells Smear Path Review Sodium 139 Potassium 3.5 Chloride 105 Carbon Dioxide 24 Anion Gap 14 BUN 3 L Creatinine 0.58 Estim Creat Clear Calc 101.2 Estimated GFR > 60 Random Glucose 198 H Lactic Acid Calcium 7.7 L Total Bilirubin 0.8 Direct Bilirubin AST 13 ALT 6 Alkaline Phosphatase 34 L Total Protein 5.1 L Albumin 3.4 L TSH Free T4 Random Cortisol Blood Type Antibody Screen Crossmatch Progress Note: A&P Assessment and plan (1) Colonic diverticular abscess: Status: Acute (2) Perforated diverticulum: Status: Acute (3) Bladder fistula: Status: Acute Plan colovesical fistula, s/p sigmoid resection, and colostomy, Tye's pouch by General Surgery perez in place and will need to stay in for 10-[address] cystogram prior to removing perez. Time Spent With Patient Time: Total time managing care of this patient today ____ minutes. Progress Note: Quality Stroke Does the patient have a stroke diagnosis?: No
[2023-05-12] MEDS: Acetaminophen 1,000 MG/100 ML PIGGYBACK 400 MG IV ×3 (11:48→22:05)
[2023-05-12] MEDS: Lidocaine 4 % Patch ADH..PATCH 1 PATCH TRANSDERMA (11:54)
--- NOTE | 2023-05-12 12:40 | P.PNCC_ITS ---
Subjective Subjective Date of Service: 05/12/23 Interval History: continued volume resuscitation overnight Critical Care Time (minutes): 90 Physical Exam 2 Vital Signs: Vital Signs: Last Vital Signs Temp 98.5 F 05/12/23 12:00 Pulse 89 05/12/23 12:00 Resp 15 05/12/23 12:00 BP 113/62 05/12/23 12:00 Pulse Ox 89 L 05/12/23 12:00 O2 Del Method Nasal Cannula 05/12/23 12:00 O2 Flow Rate 1 05/12/23 12:00 BMI result Body Mass Index 35.6 Const: General: cooperative, alert and awake Orientation/consciousness: p atient oriented x3 HEENT: Head: Yes normal to inspection, Yes normocephalic and Yes atraumatic Eyes: General: appearance normal, both eyes and all related structures P upils: Equal, round and reactive pupils present Neck: Neck: Yes normal visual inspection and Yes supple Chest: Chest palpation & inspection: normal inspection of the chest Resp: Effort & Inspection: normal respiratory effort, labored and respiratory distress Cardio: Rate: regular rate Rhythm: regular rhythm : Other: soft, non-distended; tender to palpation without guarding, rebound; colostomy with small amount bloody output; midline incision bandaged Skin: General skin exam: no rashes or lesions noted Neuro: General: patient oriented x3 and no focal motor deficits Cranial nerves: Yes Equal, round and reactive pupils present Extrem: General: Yes normal to inspection Psych: Appearance: grossly normal Objective Data Labs 05/12/23 09:29 05/12/23 05:03 Labs: Laboratory Results - last 24 hr 05/10/23 05/11/23 05/12/23 16:41 20:25 00:54 WBC 36.9 H* 32.4 H* RBC 2.77 L D 2.35 L Hgb 7.8 L D 6.5 L* Hct 23.8 L D 19.9 L* MCV 85.9 84.7 MCH 28.2 27.7 MCHC 32.8 32.7 RDW 14.3 14.3 Plt Count 458 H 321 D MPV 8.8 L 8.3 L Immature Gran % (Auto) Cancelled Cancelled Neut % (Auto) Cancelled Cancelled Lymph % (Auto) Cancelled Cancelled [place] % (Auto) Cancelled Cancelled Eos % (Auto) Cancelled Cancelled Baso % (Auto) Cancelled Cancelled Lymph # (Auto) Cancelled Cancelled [place] # (Auto) Cancelled Cancelled Eos # (Auto) Cancelled Cancelled Baso # (Auto) Cancelled Cancelled Abs Immat Gran (auto) Cancelled Cancelled Absolute Neuts (auto) Cancelled Cancelled Absolute Nucleated RBC 0.000 0.000 Nucleated RBC % (auto) 0.0 0.0 Neutrophils % (Manual) 69 82 H Band Neutrophils % 25 H 12 H Lymphocytes % (Manual) 2 L 5 L Monocytes % (Manual) 2 1 L Metamyelocytes % 2 Abs Neuts (Manual) 34.7 H 30.5 H Lymphocytes # (Manual) 0.7 L 1.6 Monocytes # (Manual) 0.7 0.3 Metamyelocytes # 0.7 Toxic Vacuolation PRESENT Platelet Estimate NORMAL NORMAL Plt Morphology Comment NORMAL NORMAL RBC Morphology NOTED NOTED Polychromasia 1+ (0-2) Hypochromasia 1+ (5-14) 1+ (5-14) Microcytosis 2+ (15-30) Macrocytosis 1+ (5-14) Pasquale Cells 2+ (3-5) Smear Path Review SEE NOTE Sodium 138 138 Potassium 2.6 L D 4.1 D Chloride 104 106 Carbon Dioxide 23 22 Anion Gap 14 14 BUN 3 L 3 L Creatinine 0.49 L 0.57 Estim Creat Clear Calc 109.6 94.2 Estimated GFR > 60 > 60 Random Glucose 163 H 179 H Lactic Acid 1.8 Calcium 7.2 L D 7.5 L Total Bilirubin 0.3 0.3 Direct Bilirubin 0.2 AST 16 14 ALT 7 7 Alkaline Phosphatase 56 46 Total Protein 4.4 L 5.0 L Albumin 1.8 L 2.9 L TSH 0.35 Free T4 1.43 Random Cortisol 24.0 Blood Type O Positive Antibody Screen NEGATIVE Crossmatch See Detail 05/12/23 05/12/23 05:03 09:29 WBC 23.4 H RBC 2.32 L Hgb 6.6 L* 7.9 L Hct 20.1 L* 24.1 L MCV 86.6 MCH 28.4 MCHC 32.8 RDW 14.2 Plt Count 242 MPV 8.6 L Immature Gran % (Auto) Cancelled Neut % (Auto) Cancelled Lymph % (Auto) Cancelled [place] % (Auto) Cancelled Eos % (Auto) Cancelled Baso % (Auto) Cancelled Lymph # (Auto) Cancelled [place] # (Auto) Cancelled Eos # (Auto) Cancelled Baso # (Auto) Cancelled Abs Immat Gran (auto) Cancelled Absolute Neuts (auto) Cancelled Absolute Nucleated RBC 0.000 Nucleated RBC % (auto) 0.0 Neutrophils % (Manual) 85 H Band Neutrophils % 7 H Lymphocytes % (Manual) 8 L Monocytes % (Manual) Metamyelocytes % Abs Neuts (Manual) 21.5 H Lymphocytes # (Manual) 1.9 Monocytes # (Manual) Metamyelocytes # Toxic Vacuolation Platelet Estimate NORMAL Plt Morphology Comment NORMAL RBC Morphology NOTED Polychromasia 1+ (0-2) Hypochromasia 1+ (5-14) Microcytosis Macrocytosis Pasquale Cells Smear Path Review Sodium 139 Potassium 3.5 Chloride 105 Carbon Dioxide 24 Anion Gap 14 BUN 3 L Creatinine 0.58 Estim Creat Clear Calc 101.2 Estimated GFR > 60 Random Glucose 198 H Lactic Acid Calcium 7.7 L Total Bilirubin 0.8 Direct Bilirubin AST 13 ALT 6 Alkaline Phosphatase 34 L Total Protein 5.1 L Albumin 3.4 L TSH Free T4 Random Cortisol Blood Type Antibody Screen Crossmatch Microbiology Microbiology Results: Microbiology 05/05/23 14:15 Abscess Intra-abdominal Gram Stain - Final 05/05/23 14:15 Abscess Intra-abdominal Routine Culture - Final No growth after 2 days 05/05/23 14:15 Abscess Intra-abdominal Anaerobic Culture - Final NO GROWTH AFTER 5 DAYS 05/04/23 13:44 Blood - Venous Blood Culture - Final No growth after 5 days. 05/04/23 13:44 Blood - Venous Blood Culture - Final No growth after 5 days. 05/04/23 Unknown Urine clean catch - Urine otto top Urine Culture - Final Progress Note: A&P Assessment and plan (1) Colovesical fistula: Status: Acute (2) Perforated diverticulum: Status: Acute (3) Colonic diverticular abscess: Status: Acute (4) Diverticulosis: Status: Acute (5) Hypotension: Status: Acute Plan Patient is a 63 Y F with recurrent sigmoid diverticulitis, re-presenting with diverticulitis c/b abscess and colovesical fistula, s/p sigmoidectomy, colostomy, though persistent hypotension N: multimodal pain management w/ acetaminophen, hydromorphone; avoid NSAIDs immediately post-op CV: hypotension, likely d/t hypovolemia; improving, now off vasopressors; to continue volume replacement w/ LR at 200 mL/hr R: no acute issues GI: divericulitis c/b abscess and colovesical fistula, s/p sigmoidectomy, colostomy; to continue levofloxacin, metronidazole; nutrition: sips and chips : no acute issues H: no chemical DVT prophylaxis immediately post-op; SCDs ID: diverticulitis as above; to continue levofloxacin, metronidazole Quality Stroke Does the patient have a stroke diagnosis?: No VTE Prior VTE?: No VTE Risk Level:: Medical - moderate - high VTE Device Contraindication: N/A - Device Ordered VTE Drug Contraindication: Treatment Not Tolerated
--- NOTE | 2023-05-12 14:23 | HO.POSTANES ---
Post Anesthesia Evaluation Post Anesthesia Evaluation Date of Service: 05/12/23 Vital Signs: Vital Signs Temp Pulse Resp BP Pulse Ox O2 Del Method O2 Flow Rate 05/12/23 13:57 91 L Nasal Cannula 05/12/23 13:00 86 102/54 L 93 Nasal Cannula 1 05/12/23 12:00 98.5 F 89 15 113/62 89 L Nasal Cannula 1 05/12/23 11:00 85 15 102/52 L 93 Nasal Cannula 1 05/12/23 10:33 81 111/60 05/12/23 10:04 86 119/65 05/12/23 10:00 87 19 119/65 93 Nasal Cannula 1 05/12/23 09:42 94 128/64 05/12/23 09:32 75 130/86 05/12/23 09:00 77 20 137/66 94 Nasal Cannula 1 05/12/23 08:21 98.4 F 86 16 130/69 05/12/23 08:11 84 130/67 05/12/23 08:00 97.6 F 79 15 137/72 93 Nasal Cannula 1 05/12/23 07:00 80 16 130/66 95 Nasal Cannula 2 05/12/23 06:00 78 12 128/66 92 Nasal Cannula 4 05/12/23 05:55 90 134/63 05/12/23 05:55 86 134/63 05/12/23 05:35 97.8 F 100 16 120/71 05/12/23 05:21 97.0 F 90 18 134/64 05/12/23 05:19 96.8 F 90 15 124/64 05/12/23 05:00 85 12 124/64 91 L Nasal Cannula 2 05/12/23 04:55 98.0 F 84 16 132/63 05/12/23 04:53 86 132/63 05/12/23 04:00 97.3 F 96 18 135/61 93 Nasal Cannula 2 05/12/23 03:00 92 13 120/64 96 Nasal Cannula 2 05/12/23 02:41 97 126/61 Anesthesia: General Endotracheal-GETA Mental Status: Awake Pain Control: Satisfactory Nausea/Vomiting: None Hydration: Adequate (fluid deficit) Anesthesia-Related Issues: No Anes. Related Issues
[2023-05-12] MEDS: Lactated Ringers 500 ML 999 ML IV (14:51)
[2023-05-12] MEDS: levoFLOXacin/D5W 500 MG/100 ML PIGGYBACK 100 MG IV (16:08)
--- NOTE | 2023-05-12 16:10 | P.PNGS_ITS ---
Subjective Subjective Date of Service: 05/12/23 Interval history: Evenings events noted Pt. c/o incis pain Physical Exam 2 Vital Signs: Vital Signs: Last Vital Signs Temp 98.5 F 05/12/23 12:00 Pulse 84 05/12/23 15:00 Resp 15 05/12/23 15:00 BP 111/58 L 05/12/23 15:00 Pulse Ox 94 05/12/23 15:00 O2 Del Method Nasal Cannula 05/12/23 15:00 O2 Flow Rate 1 05/12/23 15:00 Oxygen Flow Rate 1 05/12/23 13:57 BMI result Body Mass Index 35.6 GI: Other: Abd; dsg c/d/i Ostomy ;pink Objective Data Active Medications Amlodipine Besylate (Amlodipine Besylate 5 Mg Tablet) 5 mg PO DAILY [facility]; Protocol Last Admin: 05/11/23 09:24 Dose: Not Given Documented By: VESNA Non-Admin Reason: going to surgery Atorvastatin Calcium (Atorvastatin Calcium 20 Mg Tablet) 20 mg PO DAILY [facility] Last Admin: 05/12/23 10:35 Dose: Not Given Documented By: GABRIELA Non-Admin Reason: Patient Refused Calcium Carbonate (Calcium Carbonate 500 Mg Tablet) 500 mg PO DAILY [facility] Last Admin: 05/12/23 10:35 Dose: Not Given Documented By: GABRIELA Non-Admin Reason: Patient Refused Hydrochlorothiazide (Hydrochlorothiazide 25 Mg Tablet) 25 mg PO DAILY [facility]; Protocol Last Admin: 05/12/23 09:47 Dose: Not Given Documented By: GABRIELA Non-Admin Reason: Physician Held Med Hydromorphone HCl (Hydromorphone Hcl 0.5 Mg/0.5 Ml Syringe) 0.5 mg IVPUSH Q5M PRN; Protocol PRN Reason: Pain, Severe (Pain Scale 7-10) Last Admin: 05/11/23 19:39 Dose: 0.5 mg Documented By: EVA Hydromorphone HCl (Hydromorphone Hcl 0.5 Mg/0.5 Ml Syringe) 1 mg IVPUSH Q4H PRN; Protocol PRN Reason: Pain, Severe (Pain Scale 7-10) Last Admin: 05/12/23 11:54 Dose: 1 mg Documented By: GABRIELA Levofloxacin (Levaquin) 500 mg in 100 mls @ 80 mls/hr IV Q24H [facility] Last Infusion: 05/11/23 19:48 Dose: Infused Documented By: EVA Norepinephrine Bitartrate (Levophed) 8 mg in 250 mls @ 0 mls/hr IV .Q0M [facility]; Protocol Last Titration: 05/12/23 10:33 Dose: 0 mcg/kg/min, 0 mls/hr Documented By: GABRIELA Lactated Ringer's (Lr) 1,000 mls @ 200 mls/hr IVCONT .Q5H [facility] Last Admin: 05/12/23 12:12 Dose: 200 mls/hr Documented By: GABRIELA Metronidazole (Flagyl) 500 mg in 100 mls @ 100 mls/hr IV Q6H [facility] Last Infusion: 05/12/23 13:15 Dose: Infused Documented By: GABRIELA Acetaminophen (Ofirmev) 1,000 mg in 100 mls @ 400 mls/hr IV Q6H [facility] Last Infusion: 05/12/23 12:13 Dose: Infused Documented By: GABRIELA Lidocaine (Lidocaine 4 % Patch Adh..Patch) 1 patch TRANSDERMA DAILY [facility]; Protocol Last Admin: 05/12/23 11:54 Dose: 1 patch Documented By: GABRIELA Lisinopril (Lisinopril 10 Mg Tablet) 30 mg PO DAILY [facility]; Protocol Last Admin: 05/11/23 09:25 Dose: Not Given Documented By: VESNA Non-Admin Reason: going to surgery Metoprolol Succinate (Metoprolol Succinate Er 50 Mg Tab.Er.24h) 150 mg PO DAILY [facility]; Protocol Last Admin: 05/11/23 09:25 Dose: Not Given Documented By: VESNA Non-Deborah Reason: going to surgery Multivitamins/Vitamin C (Multivitamin Tablet) 1 tab PO DAILY [facility] Last Admin: 05/12/23 10:35 Dose: Not Given Documented By: GABRIELA Non-Admin Reason: Patient Asleep Omeprazole (Omeprazole 20 Mg Capsule.) 20 mg PO DAILY@0630 [facility] Last Admin: 05/12/23 05:49 Dose: Not Given Documented By: EVA Non-Admin Reason: NPO Ondansetron HCl (Ondansetron Hcl 4 Mg/2 Ml Vial) 4 mg IVPUSH Q8H PRN PRN Reason: Nausea and Vomiting Last Admin: 05/12/23 11:54 Dose: 4 mg Documented By: GABRIELA Ondansetron HCl (Ondansetron Hcl 4 Mg/2 Ml Vial) 4 mg IVPUSH ONCE PRN PRN Reason: Nausea and Vomiting Simethicone (Simethicone 80 Mg Tab.Chew) 160 mg PO QIDWMHS PRN PRN Reason: Gas Last Admin: 05/10/23 16:20 Dose: 160 mg Documented By: GUTIERREZ Sodium Chloride (0.9 % Sodium Chloride Flush 3 Ml Syringe) 3 ml IVFLUSH QSHIFT [facility] Last Admin: 05/12/23 07:31 Dose: 3 ml Documented By: GABRIELA Trazodone HCl (Trazodone Hcl 100 Mg Tablet) 200 mg PO BEDTIME [facility] Last Admin: 05/11/23 21:58 Dose: Not Given Documented By: EVA Non-Admin Reason: NPO Labs 05/12/23 09:29 05/12/23 05:03 Labs: Laboratory Results - last 24 hr 05/10/23 05/11/23 05/12/23 16:41 20:25 00:54 MCV 85.9 84.7 MCH 28.2 27.7 MCHC 32.8 32.7 RDW 14.3 14.3 Plt Count 458 H 321 D MPV 8.8 L 8.3 L Immature Gran % (Auto) Cancelled Cancelled Neut % (Auto) Cancelled Cancelled Lymph % (Auto) Cancelled Cancelled [place] % (Auto) Cancelled Cancelled Eos % (Auto) Cancelled Cancelled Baso % (Auto) Cancelled Cancelled Lymph # (Auto) Cancelled Cancelled [place] # (Auto) Cancelled Cancelled Eos # (Auto) Cancelled Cancelled Baso # (Auto) Cancelled Cancelled Abs Immat Gran (auto) Cancelled Cancelled Absolute Neuts (auto) Cancelled Cancelled Absolute Nucleated RBC 0.000 0.000 Nucleated RBC % (auto) 0.0 0.0 Neutrophils % (Manual) 69 82 H Band Neutrophils % 25 H 12 H Lymphocytes % (Manual) 2 L 5 L Monocytes % (Manual) 2 1 L Metamyelocytes % 2 Abs Neuts (Manual) 34.7 H 30.5 H Lymphocytes # (Manual) 0.7 L 1.6 Monocytes # (Manual) 0.7 0.3 Metamyelocytes # 0.7 Toxic Vacuolation PRESENT Platelet Estimate NORMAL NORMAL Plt Morphology Comment NORMAL NORMAL RBC Morphology NOTED NOTED Polychromasia 1+ (0-2) Hypochromasia 1+ (5-14) 1+ (5-14) Microcytosis 2+ (15-30) Macrocytosis 1+ (5-14) Pasquale Cells 2+ (3-5) Smear Path Review SEE NOTE Anion Gap 14 14 Estim Creat Clear Calc 109.6 94.2 Estimated GFR > 60 > 60 Random Glucose 163 H 179 H Lactic Acid 1.8 Calcium 7.2 L D 7.5 L Total Bilirubin 0.3 0.3 Direct Bilirubin 0.2 AST 16 14 ALT 7 7 Alkaline Phosphatase 56 46 Total Protein 4.4 L 5.0 L Albumin 1.8 L 2.9 L TSH 0.35 Free T4 1.43 Random Cortisol 24.0 Blood Type O Positive Antibody Screen NEGATIVE Crossmatch See Detail 05/12/23 05:03 MCV 86.6 MCH 28.4 MCHC 32.8 RDW 14.2 Plt Count 242 MPV 8.6 L Immature Gran % (Auto) Cancelled Neut % (Auto) Cancelled Lymph % (Auto) Cancelled [place] % (Auto) Cancelled Eos % (Auto) Cancelled Baso % (Auto) Cancelled Lymph # (Auto) Cancelled [place] # (Auto) Cancelled Eos # (Auto) Cancelled Baso # (Auto) Cancelled Abs Immat Gran (auto) Cancelled Absolute Neuts (auto) Cancelled Absolute Nucleated RBC 0.000 Nucleated RBC % (auto) 0.0 Neutrophils % (Manual) 85 H Band Neutrophils % 7 H Lymphocytes % (Manual) 8 L Monocytes % (Manual) Metamyelocytes % Abs Neuts (Manual) 21.5 H Lymphocytes # (Manual) 1.9 Monocytes # (Manual) Metamyelocytes # Toxic Vacuolation Platelet Estimate NORMAL Plt Morphology Comment NORMAL RBC Morphology NOTED Polychromasia 1+ (0-2) Hypochromasia 1+ (5-14) Microcytosis Macrocytosis Pasquale Cells Smear Path Review Anion Gap 14 Estim Creat Clear Calc 101.2 Estimated GFR > 60 Random Glucose 198 H Lactic Acid Calcium 7.7 L Total Bilirubin 0.8 Direct Bilirubin AST 13 ALT 6 Alkaline Phosphatase 34 L Total Protein 5.1 L Albumin 3.4 L TSH Free T4 Random Cortisol Blood Type Antibody Screen Crossmatch Procedures Date of Service Date of Service: 05/12/23 Progress Note: A&P Assessment and plan (1) Colovesical fistula: Status: Acute (2) Perforated diverticulum: Status: Acute (3) Bladder fistula: Status: Acute Plan Con't restorative measures, follow i/o's, IS,sips po liq s,OOB I spoke with pt's son early this AM about operative findings and pt's current status. Time Spent With Patient Time: Total time managing care of this patient today ____ minutes. Quality Stroke Does the patient have a stroke diagnosis?: No VTE Prior VTE?: No VTE Risk Level:: Medical - moderate - high VTE Device Contraindication: N/A - Device Ordered VTE Drug Contraindication: Treatment Not Tolerated
[2023-05-12 17:07] LABS: Red Blood Count 2.33 X10*6/uL (4.20-5.50); White Blood Count 15.9 X10*3/uL (4.8-10.8)
[2023-05-12 17:08] LABS: Mean Corpuscular Hemoglobin 28.8 pg (27.0-33.0); Mean Corpuscular Volume 84.5 fL (80.0-98.0); Mean Platelet Volume 8.3 fL (9.4-12.3); Platelet Count 189 X10*3/uL (160-400); Red Cell Distribution Width 14.3 % (11.0-16.0)
[2023-05-12 17:21] LABS: Hemoglobin 6.7 g/dl (12.0-16.0)
[2023-05-12 17:22] LABS: Hematocrit 19.7 % (37.0-47.0)
[2023-05-12] MEDS: Calcium Chloride 1 GM/10 ML SYRINGE IVPUSH (17:36)
[2023-05-12 22:09] LABS: MANUAL DIFF FLAG NO
[2023-05-12 22:10] LABS: Basophils Percent Auto 0.1 % (0-2); Eosinophils Percent Auto 0.2 % (0-4); Hematocrit 24.3 % (37.0-47.0); Hemoglobin 8.1 g/dl (12.0-16.0); Imm Gran Abs Auto 0.17 X10*3/uL (0.00-0.03); Imm Gran Pct Auto 0.9 % (0.0-0.4); Lymphocytes Absolute Auto 1.9 X10*3/uL (1.2-4.9); Mean Corpuscular HGB Conc 33.3 g/dl (31.0-35.0); Mean Corpuscular Hemoglobin 28.9 pg (27.0-33.0); Mean Corpuscular Volume 86.8 fL (80.0-98.0); Mean Platelet Volume 8.3 fL (9.4-12.3); Monocytes Absolute Auto 1.2 X10*3/uL (0.1-1.2); Monocytes Percent Auto 6.1 % (2-11); Neutrophils Absolute Auto 15.5 x10*3/uL (2.0-8.3); Neutrophils Percent Auto 82.7 % (45-73); Platelet Count 178 X10*3/uL (160-400); Red Cell Distribution Width 15.4 % (11.0-16.0); White Blood Count 18.7 X10*3/uL (4.8-10.8)
[2023-05-12 22:28] LABS: Anion Gap 8 (12-20); Blood Urea Nitrogen 3 mg/dL (9-16); Calcium 7.3 mg/dL (8.4-10.2); Carbon Dioxide 27 mmol/L (22-29); Chloride 106 mmol/L (96-108); Creatinine Clr Calc Pharmacy 108.6; Estimated Glomerular Filt Rate > 60; Glucose Random 106 mg/dL (60-115); Phosphorus 2.2 mg/dL (2.7-4.5); Potassium 3.1 mmol/L (3.3-5.1); Sodium 138 mmol/L (135-145)
[2023-05-12] MEDS: Magnesium Sulfate/H2O 2 GM/50 ML PIGGYBACK IV (22:44)
[2023-05-12] MEDS: Potassium Phosphate/NS 15 MMOL/250 ML PLAST..BAG 62.5 MMOL IV (22:44)
[2023-05-12] MEDS: Calcium Gluconate/NaCl,Iso-Osm 1 GM/50 ML PLAST..BAG IV (22:44)
[2023-05-13] VITALS (13 sets, daily range): BP systolic 105–124; BP diastolic 55–71; PULSE 69–92; RESP 10–21; TEMP 36.1–37.2; O2SAT 92–95; BMI 35.6
[2023-05-13] MEDS: HYDROmorphone HCl 0.5 MG/0.5 ML SYRINGE 1 MG IVPUSH ×6 (00:08→22:39)
[2023-05-13] MEDS: Potassium Phosphate/NS 15 MMOL/250 ML PLAST..BAG 62.5 MMOL IV (02:56)
[2023-05-13] MEDS: Lactated Ringers 1,000 ML 200 ML IVCONT ×2 (04:00→10:39)
[2023-05-13] MEDS: metroNIDAZOLE/NS 500 MG/100 ML PIGGYBACK 100 MG IV ×4 (05:20→23:52)
[2023-05-13] MEDS: Pantoprazole Sodium 40 MG/10 ML VIAL IVPUSH (05:20)
[2023-05-13 05:25] LABS: VBG Base Excess 6.9 mmol/L; VBG HCO3 31 mmol/L (22-26); VBG pCO2 43 mmHg; VBG pH 7.46 (7.32-7.43); VBG pO2 54 mmHg
[2023-05-13 05:49] LABS: MANUAL DIFF FLAG NO
[2023-05-13 05:53] LABS: Basophils Absolute Auto 0.1 X10*3/uL (0.0-0.2); Basophils Percent Auto 0.4 % (0-2); Eosinophils Absolute Auto 0.1 X10*3/uL (0.0-0.4); Eosinophils Percent Auto 0.3 % (0-4); Hematocrit 26.2 % (37.0-47.0); Hemoglobin 8.6 g/dl (12.0-16.0); Imm Gran Abs Auto 0.24 X10*3/uL (0.00-0.03); Imm Gran Pct Auto 1.2 % (0.0-0.4); Lymphocytes Absolute Auto 1.9 X10*3/uL (1.2-4.9); Lymphocytes Percent Auto 9.3 % (20-40); Mean Corpuscular HGB Conc 32.8 g/dl (31.0-35.0); Mean Corpuscular Hemoglobin 28.8 pg (27.0-33.0); Mean Corpuscular Volume 87.6 fL (80.0-98.0); Monocytes Absolute Auto 1.2 X10*3/uL (0.1-1.2); Neutrophils Absolute Auto 17.1 x10*3/uL (2.0-8.3); Neutrophils Percent Auto 82.8 % (45-73); Platelet Count 209 X10*3/uL (160-400); Red Blood Count 2.99 X10*6/uL (4.20-5.50); Red Cell Distribution Width 15.4 % (11.0-16.0); White Blood Count 20.6 X10*3/uL (4.8-10.8)
[2023-05-13 06:03] LABS: Venous Blood Gas Refer to POC result
[2023-05-13] MEDS: Acetaminophen 1,000 MG/100 ML PIGGYBACK 400 MG IV ×4 (06:04→22:42)
[2023-05-13 06:13] LABS: Alanine Aminotransferase 6 U/L (0-31); Alkaline Phosphatase 36 U/L (39-117); Anion Gap 9 (12-20); Aspartate Amino Transferase 14 U/L (5-31); Bilirubin Total 0.5 mg/dL (0.0-1.0); Blood Urea Nitrogen 4 mg/dL (9-16); Calcium 8.4 mg/dL (8.4-10.2); Carbon Dioxide 28 mmol/L (22-29); Chloride 106 mmol/L (96-108); Creatinine Clr Calc Pharmacy 117.4; Estimated Glomerular Filt Rate > 60; Glucose Random 86 mg/dL (60-115); Magnesium 1.4 mg/dL (1.6-2.6); Phosphorus 3.3 mg/dL (2.7-4.5); Potassium 3.5 mmol/L (3.3-5.1); Sodium 139 mmol/L (135-145); Total Protein 4.7 g/dL (6.5-8.0)
[2023-05-13] MEDS: Magnesium Sulfate/H2O 2 GM/50 ML PIGGYBACK IV (06:29)
--- NOTE | 2023-05-13 08:42 | P.PNCC_ITS ---
Subjective Subjective Date of Service: 05/13/23 Interval History: no significant overnight events; self-reported improvement of pain Critical Care Time (minutes): 60 Physical Exam 2 Vital Signs: Vital Signs: Last Vital Signs Temp 98.3 F 05/13/23 06:00 Pulse 81 05/13/23 07:00 Resp 10 L 05/13/23 07:00 BP 105/56 L 05/13/23 07:00 Pulse Ox 93 05/13/23 07:00 O2 Del Method Nasal Cannula 05/13/23 07:00 O2 Flow Rate 1 05/13/23 07:00 Oxygen Flow Rate 1 05/12/23 13:57 BMI result Body Mass Index 35.6 Const: General: cooperative, healthy appearing, comfortable, no acute distress, well developed, alert and awake Orientation/consciousness: patient oriented x3 HEENT: Head: Yes normal to inspection, Yes normocephalic and Yes atraumatic Eyes: General: appearance normal, both eyes and all related structures P upils: Equal, round and reactive pupils present Neck: Neck: Yes normal visual inspection and Yes supple Chest: Chest palpation & inspection: normal inspection of the chest Resp: Effort & Inspection: normal respiratory effort Cardio: Rate: regular rate Rhythm: regular rhythm GI: Other: colostomy with red-brown output; midline incision with overlying bandage; mild tenderness to palpation Inspection: No distended Palpation (GI): Soft to palpation, not firm, nontender, no guarding and not rigid Skin: General skin exam: no rashes or lesions noted Neuro: General: patient oriented x3 and moves all extremities Cranial nerves: Yes Equal, round and reactive pupils present Extrem: Other: edema L forearm and hand Psych: Appearance: grossly normal Objective Data Labs 05/13/23 05:20 05/13/23 05:20 Labs: Laboratory Results - last 24 hr 05/10/23 05/12/23 05/12/23 16:41 09:29 16:56 WBC 15.9 H RBC 2.33 L Hgb 7.9 L 6.7 L* Hct 24.1 L 19.7 L* MCV 84.5 MCH 28.8 MCHC 34.0 RDW 14.3 Plt Count 189 MPV 8.3 L Immature Gran % (Auto) Neut % (Auto) Lymph % (Auto) [place] % (Auto) Eos % (Auto) Baso % (Auto) Lymph # (Auto) [place] # (Auto) Eos # (Auto) Baso # (Auto) Abs Immat Gran (auto) Absolute Neuts (auto) Absolute Nucleated RBC 0.000 Nucleated RBC % (auto) 0.0 VBG pH VBG pCO2 VBG pO2 VBG HCO3 VBG O2 Saturation VBG Base Excess Sodium Potassium Chloride Carbon Dioxide Anion Gap BUN Creatinine Estim Creat Clear Calc Estimated GFR Random Glucose Calcium Phosphorus Magnesium Total Bilirubin AST ALT Alkaline Phosphatase Total Protein Albumin Blood Type O Positive Antibody Screen NEGATIVE Crossmatch See Detail 05/12/23 05/13/23 22:04 05:20 WBC 18.7 H 20.6 H RBC 2.80 L D 2.99 L Hgb 8.1 L D 8.6 L Hct 24.3 L D 26.2 L MCV 86.8 87.6 MCH 28.9 28.8 MCHC 33.3 32.8 RDW 15.4 15.4 Plt Count 178 209 MPV 8.3 L 9.0 L Immature Gran % (Auto) 0.9 H 1.2 H Neut % (Auto) 82.7 H 82.8 H Lymph % (Auto) 10.0 L 9.3 L [place] % (Auto) 6.1 6.0 Eos % (Auto) 0.2 0.3 Baso % (Auto) 0.1 0.4 Lymph # (Auto) 1.9 1.9 [place] # (Auto) 1.2 1.2 Eos # (Auto) 0.0 0.1 Baso # (Auto) 0.0 0.1 Abs Immat Gran (auto) 0.17 H 0.24 H Absolute Neuts (auto) 15.5 H 17.1 H Absolute Nucleated RBC 0.000 0.000 Nucleated RBC % (auto) 0.0 0.0 VBG pH 7.46 H VBG pCO2 43 VBG pO2 54 VBG HCO3 31 H VBG O2 Saturation 83.0 VBG Base Excess 6.9 Sodium 138 139 Potassium 3.1 L 3.5 Chloride 106 106 Carbon Dioxide 27 28 Anion Gap 8 L 9 L BUN 3 L 4 L Creatinine 0.54 0.50 Estim Creat Clear Calc 108.6 117.4 Estimated GFR > 60 > 60 Random Glucose 106 86 Calcium 7.3 L 8.4 D Phosphorus 2.2 L 3.3 Magnesium 1.0 L* 1.4 L* Total Bilirubin 0.5 AST 14 ALT 6 Alkaline Phosphatase 36 L Total Protein 4.7 L Albumin 3.0 L Blood Type Antibody Screen Crossmatch Microbiology Microbiology Results: Microbiology 05/05/23 14:15 Abscess Intra-abdominal Gram Stain - Final 05/05/23 14:15 Abscess Intra-abdominal Routine Culture - Final No growth after 2 days 05/05/23 14:15 Abscess Intra-abdominal Anaerobic Culture - Final NO GROWTH AFTER 5 DAYS 05/04/23 13:44 Blood - Venous Blood Culture - Final No growth after 5 days. 05/04/23 13:44 Blood - Venous Blood Culture - Final No growth after 5 days. 05/04/23 Unknown Urine clean catch - Urine otto top Urine Culture - Final Progress Note: A&P Assessment and plan (1) Colovesical fistula: Status: Acute (2) Colonic diverticular abscess: Status: Acute (3) Perforated diverticulum: Status: Acute (4) Bladder fistula: Status: Acute (5) Diverticulosis: Status: Acute Plan Patient is a 63 Y F with recurrent sigmoid diverticulitis, re-presenting with diverticulitis c/b abscess and colovesical fistula, s/p sigmoidectomy, colostomy, though persistent hypotension, resolved N: multimodal pain management w/ acetaminophen, hydromorphone; avoid NSAIDs post-op CV: hypotension, likely d/t hypovolemia; improving, now off vasopressors; to continue volume replacement w/ LR at 200 mL/hr until able to PO R: no acute issues GI: diverticulitis c/b abscess and colovesical fistula, s/p sigmoidectomy, colostomy; to continue levofloxacin, metronidazole; nutrition: sips and chips, to advance per general surgery : no acute issues H: no chemical DVT prophylaxis immediately post-op; SCDs ID: diverticulitis as above; to continue levofloxacin, metronidazole Quality Stroke Does the patient have a stroke diagnosis?: No VTE Prior VTE?: No VTE Risk Level:: Medical - moderate - high VTE Device Contraindication: N/A - Device Ordered VTE Drug Contraindication: Treatment Not Tolerated
[2023-05-13] MEDS: Lidocaine 4 % Patch ADH..PATCH 1 PATCH TRANSDERMA (11:21)
[2023-05-13] MEDS: 0.9 % Sodium Chloride Flush 3 ML SYRINGE IVFLUSH (16:58)
[2023-05-13] MEDS: levoFLOXacin/D5W 500 MG/100 ML PIGGYBACK 80 MG IV (17:07)
[2023-05-13] MEDS: ondansetron HCL 4 MG/2 ML VIAL IVPUSH (19:34)
--- NOTE | 2023-05-13 19:44 | PM.PNGS ---
Subjective Subjective Date of Service: 05/13/23 Interval history: pt feeling well but in pain - has only relief with dilaudid. has poor iv access so has triple lumen in place feeling tired as earlier in icu was sitting on the edge of the bed doing well so transfered out of icu Physical Exam Vital Signs: Vital Signs: Last Vital Signs Temp 98.9 F 05/13/23 19:28 Pulse 90 05/13/23 19:28 Resp 20 05/13/23 19:28 BP 124/59 L 05/13/23 19:28 Pulse Ox 93 05/13/23 19:28 O2 Del Method Room Air 05/13/23 19:28 O2 Flow Rate 1 05/13/23 09:00 Oxygen Flow Rate 1 05/12/23 13:57 BMI result Body Mass Index 35.6 Const: General: cooperative, healthy appearing, alert, awake and acute distress mild Orientation/consciousness: patient oriented x3 Resp: Effort & Inspection: normal respiratory effort Auscultation: clear to auscultation bilaterally Cardio: Rate: regular rate Rhythm: regular rhythm GI: Other: abdo soft ostomy viable with bloody drainage- dressings edwin in place. fiorella drain with bloody drainage Neuro: General: patient oriented x3 and moves all extremities Extrem: General: Yes normal to inspection Psych: Appearance: grossly normal Speech and movement: Normal speech and movement present Affect: normal affect Attitude: cooperative Thought process: Normal thought process present Objective Data Active Medications Amlodipine Besylate (Amlodipine Besylate 5 Mg Tablet) 5 mg PO DAILY [facility]; Protocol Last Admin: 05/11/23 09:24 Dose: Not Given Documented By: VESNA Non-Admin Reason: going to surgery Atorvastatin Calcium (Atorvastatin Calcium 20 Mg Tablet) 20 mg PO DAILY [facility] Last Admin: 05/13/23 11:20 Dose: Not Given Documented By: JEANNE Non-Admin Reason: Patient Refused Calcium Carbonate (Calcium Carbonate 500 Mg Tablet) 500 mg PO DAILY [facility] Last Admin: 05/13/23 11:20 Dose: Not Given Documented By: JEANNE Non-Admin Reason: Patient Refused Hydrochlorothiazide (Hydrochlorothiazide 25 Mg Tablet) 25 mg PO DAILY [facility]; Protocol Last Admin: 05/12/23 09:47 Dose: Not Given Documented By: GABRIELA Non-Admin Reason: Physician Held Med Hydromorphone HCl (Hydromorphone Hcl 0.5 Mg/0.5 Ml Syringe) 0.5 mg IVPUSH Q5M PRN; Protocol PRN Reason: Pain, Severe (Pain Scale 7-10) Last Admin: 05/11/23 19:39 Dose: 0.5 mg Documented By: EVA Hydromorphone HCl (Hydromorphone Hcl 0.5 Mg/0.5 Ml Syringe) 1 mg IVPUSH Q4H PRN; Protocol PRN Reason: Pain, Severe (Pain Scale 7-10) Last Admin: 05/13/23 18:34 Dose: 1 mg Documented By: SENIA Levofloxacin (Levaquin) 500 mg in 100 mls @ 80 mls/hr IV Q24H [facility] Last Infusion: 05/13/23 18:27 Dose: Infused Documented By: SENIA Metronidazole (Flagyl) 500 mg in 100 mls @ 100 mls/hr IV Q6H [facility] Last Infusion: 05/13/23 19:37 Dose: Infused Documented By: CARLY Acetaminophen (Ofirmev) 1,000 mg in 100 mls @ 400 mls/hr IV Q6H [facility] Last Infusion: 05/13/23 17:37 Dose: Infused Documented By: SENIA Lidocaine (Lidocaine 4 % Patch Adh..Patch) 1 patch TRANSDERMA DAILY [facility]; Protocol Last Admin: 05/13/23 11:21 Dose: 1 patch Documented By: JEANNE Lisinopril (Lisinopril 10 Mg Tablet) 30 mg PO DAILY [facility]; Protocol Last Admin: 05/11/23 09:25 Dose: Not Given Documented By: VESNA Non-Admin Reason: going to surgery Metoprolol Succinate (Metoprolol Succinate Er 50 Mg Tab.Er.24h) 150 mg PO DAILY [facility]; Protocol Last Admin: 05/11/23 09:25 Dose: Not Given Documented By: VESNA Non-Admin Reason: going to surgery Multivitamins/Vitamin C (Multivitamin Tablet) 1 tab PO DAILY [facility] Last Admin: 05/13/23 11:25 Dose: Not Given Documented By: JEANNE Non-Admin Reason: Patient Refused Ondansetron HCl (Ondansetron Hcl 4 Mg/2 Ml Vial) 4 mg IVPUSH Q8H PRN PRN Reason: Nausea and Vomiting Last Admin: 05/13/23 19:34 Dose: 4 mg Documented By: CARLY Ondansetron HCl (Ondansetron Hcl 4 Mg/2 Ml Vial) 4 mg IVPUSH ONCE PRN PRN Reason: Nausea and Vomiting Pantoprazole Sodium (Pantoprazole Sodium 40 Mg/10 Ml Vial) 40 mg IVPUSH DAILY@0630 [facility] Last Admin: 05/13/23 05:20 Dose: 40 mg Documented By: KEATON Simethicone (Simethicone 80 Mg Tab.Chew) 160 mg PO QIDWMHS PRN PRN Reason: Gas Last Admin: 05/10/23 16:20 Dose: 160 mg Documented By: GUTIERREZ Sodium Chloride (0.9 % Sodium Chloride Flush 3 Ml Syringe) 3 ml IVFLUSH QSHIFT [facility] Last Admin: 05/13/23 16:58 Dose: 3 ml Documented By: CTORRZ Trazodone HCl (Trazodone Hcl 100 Mg Tablet) 200 mg PO BEDTIME [facility] Last Admin: 05/12/23 20:06 Dose: Not Given Documented By: KEATON Non-Admin Reason: NPO Labs 05/13/23 05:20 05/13/23 05:20 Labs: Laboratory Results - last 24 hr 05/10/23 05/12/23 05/13/23 16:41 22:04 05:20 MCV 86.8 87.6 MCH 28.9 28.8 MCHC 33.3 32.8 RDW 15.4 15.4 Plt Count 178 209 MPV 8.3 L 9.0 L Immature Gran % (Auto) 0.9 H 1.2 H Neut % (Auto) 82.7 H 82.8 H Lymph % (Auto) 10.0 L 9.3 L [place] % (Auto) 6.1 6.0 Eos % (Auto) 0.2 0.3 Baso % (Auto) 0.1 0.4 Lymph # (Auto) 1.9 1.9 [place] # (Auto) 1.2 1.2 Eos # (Auto) 0.0 0.1 Baso # (Auto) 0.0 0.1 Abs Immat Gran (auto) 0.17 H 0.24 H Absolute Neuts (auto) 15.5 H 17.1 H Absolute Nucleated RBC 0.000 0.000 Nucleated RBC % (auto) 0.0 0.0 VBG pH 7.46 H VBG pCO2 43 VBG pO2 54 VBG HCO3 31 H VBG O2 Saturation 83.0 VBG Base Excess 6.9 Anion Gap 8 L 9 L Estim Creat Clear Calc 108.6 117.4 Estimated GFR > 60 > 60 Random Glucose 106 86 Calcium 7.3 L 8.4 D Phosphorus 2.2 L 3.3 Magnesium 1.0 L* 1.4 L* Total Bilirubin 0.5 AST 14 ALT 6 Alkaline Phosphatase 36 L Total Protein 4.7 L Albumin 3.0 L Crossmatch See Detail Procedures Date of Service Date of Service: 05/13/23 Progress Note: A&P Assessment and plan (1) Colovesical fistula: Status: Acute Assessment and Plan: Pt is a 63 year old female 2 days s/p sig colectomy with Rizzo colostomy and takedown of colovesicular fistula and sbr. postop had hypotension so admitted to ICu but doing well so dc to floor today. overall doing well with better HD plan neuro - dilaudid for pain control resp - no issues - IS and cough and deep breathe cardiac - stable vitals - cont with HTN meds now gi- ileus, ostomy viable just liquid bloody output looks appropriate gu- takedown fistula so perez to stay in place fen- cont with ivf, check labs heme- dvt prophylaxis - lovenox and boots id- cont with levaquin and flagyl - wbc trending down a bit - cont to follow dressings- will change packing tomorrow pt understands and agrees with the plan Time Spent With Patient Time: Total time managing care of this patient today ____ minutes. Quality Stroke Does the patient have a stroke diagnosis?: No VTE Prior VTE?: No VTE Risk Level:: Medical - moderate - high VTE Device Contraindication: N/A - Device Ordered VTE Drug Contraindication: Treatment Not Tolerated
[2023-05-14] VITALS (7 sets, daily range): BP systolic 108–128; BP diastolic 56–75; PULSE 89–102; RESP 18–20; TEMP 36.4–37.3; O2SAT 93–97
[2023-05-14] MEDS: traZODone HCL 100 MG TABLET 200 MG PO ×2 (00:54→21:35)
[2023-05-14] MEDS: 0.9 % Sodium Chloride Flush 3 ML SYRINGE IVFLUSH ×3 (00:55→17:26)
[2023-05-14] MEDS: metroNIDAZOLE/NS 500 MG/100 ML PIGGYBACK 100 MG IV ×3 (05:27→18:41)
[2023-05-14] MEDS: Pantoprazole Sodium 40 MG/10 ML VIAL IVPUSH (05:32)
[2023-05-14] MEDS: Acetaminophen 1,000 MG/100 ML PIGGYBACK 400 MG IV ×3 (05:33→18:41)
[2023-05-14] MEDS: HYDROmorphone HCl 0.5 MG/0.5 ML SYRINGE 1 MG IVPUSH ×4 (06:09→21:43)
[2023-05-14 06:29] LABS: MANUAL DIFF FLAG NO
[2023-05-14 06:33] LABS: Basophils Absolute Auto 0.1 X10*3/uL (0.0-0.2); Basophils Percent Auto 0.3 % (0-2); Eosinophils Absolute Auto 0.1 X10*3/uL (0.0-0.4); Eosinophils Percent Auto 0.3 % (0-4); Hematocrit 27.9 % (37.0-47.0); Hemoglobin 9.2 g/dl (12.0-16.0); Imm Gran Abs Auto 0.28 X10*3/uL (0.00-0.03); Imm Gran Pct Auto 1.3 % (0.0-0.4); Lymphocytes Percent Auto 9.4 % (20-40); Mean Corpuscular Hemoglobin 28.9 pg (27.0-33.0); Mean Corpuscular Volume 87.7 fL (80.0-98.0); Mean Platelet Volume 8.9 fL (9.4-12.3); Monocytes Absolute Auto 1.1 X10*3/uL (0.1-1.2); Monocytes Percent Auto 5.3 % (2-11); Neutrophils Absolute Auto 17.3 x10*3/uL (2.0-8.3); Neutrophils Percent Auto 83.4 % (45-73); Platelet Count 261 X10*3/uL (160-400); Red Blood Count 3.18 X10*6/uL (4.20-5.50); Red Cell Distribution Width 15.9 % (11.0-16.0); White Blood Count 20.8 X10*3/uL (4.8-10.8)
[2023-05-14 07:03] LABS: Anion Gap 12 (12-20); Blood Urea Nitrogen 4 mg/dL (9-16); Calcium 7.9 mg/dL (8.4-10.2); Carbon Dioxide 25 mmol/L (22-29); Chloride 104 mmol/L (96-108); Creatinine Clr Calc Pharmacy 122.2; Estimated Glomerular Filt Rate > 60; Glucose Random 57 mg/dL (60-115); Magnesium 1.6 mg/dL (1.6-2.6); Phosphorus 2.6 mg/dL (2.7-4.5); Sodium 138 mmol/L (135-145)
[2023-05-14 07:17] LABS: Glucose, Whole Blood 55 mg/dL (60-115)
[2023-05-14 07:40] LABS: Glucose, Whole Blood 68 mg/dL (60-115)
[2023-05-14] MEDS: KCl 20 mEq in 0.9 % Sodium ChL 20 MEQ/1,000 ML IV.SOLN 42 MEQ IVCONT (08:00)
[2023-05-14 08:03] LABS: Glucose, Whole Blood 110 mg/dL (60-115)
[2023-05-14] MEDS: Atorvastatin Calcium 20 MG TABLET PO (08:06)
[2023-05-14] MEDS: Multivitamin TABLET 1 TAB PO (08:06)
[2023-05-14] MEDS: Lidocaine 4 % Patch ADH..PATCH 1 PATCH TRANSDERMA (08:06)
[2023-05-14 11:11] LABS: Glucose, Whole Blood 96 mg/dL (60-115)
--- NOTE | 2023-05-14 11:54 | P.PNGS_ITS ---
Subjective Subjective Date of Service: 05/14/23 Interval history: feels tired, pain better, hd issues with leaking colosotmy bag Physical Exam 2 Vital Signs: Vital Signs: Last Vital Signs Temp 99.2 F 05/14/23 11:16 Pulse 98 05/14/23 11:16 Resp 18 05/14/23 11:16 BP 128/74 05/14/23 11:16 Pulse Ox 93 05/14/23 11:16 O2 Del Method Room Air 05/14/23 11:16 O2 Flow Rate 2 05/14/23 04:00 Oxygen Flow Rate 1 05/12/23 13:57 BMI result Body Mass Index 35.6 Const: General: cooperative, comfortable and no acute distress O rientation/consciousness: patient oriented x3 Resp: Other: diminished at bases Effort & Inspection: normal respiratory effort Cardio: Rate: regular rate Rhythm: regular rhythm GI: Other: soft tender lowe abdomen = dressings and packing changed and wound looks great. hypo bowel sounds fiorella with sero sang drainage Skin: General skin exam: no rashes or lesions noted Neuro: General: patient oriented x3 and moves all extremities Objective Data Active Medications Amlodipine Besylate (Amlodipine Besylate 5 Mg Tablet) 5 mg PO DAILY [facility]; Protocol Last Admin: 05/11/23 09:24 Dose: Not Given Documented By: VESNA Non-Admin Reason: going to surgery Atorvastatin Calcium (Atorvastatin Calcium 20 Mg Tablet) 20 mg PO DAILY [facility] Last Admin: 05/14/23 08:06 Dose: 20 mg Documented By: SENIA Calcium Carbonate (Calcium Carbonate 500 Mg Tablet) 500 mg PO DAILY [facility] Last Admin: 05/14/23 08:06 Dose: 500 mg Documented By: SENIA Hydrochlorothiazide (Hydrochlorothiazide 25 Mg Tablet) 25 mg PO DAILY [facility]; Protocol Last Admin: 05/12/23 09:47 Dose: Not Given Documented By: GABRIELA Non-Admin Reason: Physician Held Med Hydromorphone HCl (Hydromorphone Hcl 0.5 Mg/0.5 Ml Syringe) 0.5 mg IVPUSH Q5M PRN; Protocol PRN Reason: Pain, Severe (Pain Scale 7-10) Last Admin: 05/11/23 19:39 Dose: 0.5 mg Documented By: EVA Hydromorphone HCl (Hydromorphone Hcl 0.5 Mg/0.5 Ml Syringe) 1 mg IVPUSH Q4H PRN; Protocol PRN Reason: Pain, Severe (Pain Scale 7-10) Last Admin: 05/14/23 10:29 Dose: 1 mg Documented By: SENIA Levofloxacin (Levaquin) 500 mg in 100 mls @ 80 mls/hr IV Q24H [facility] Last Infusion: 05/13/23 18:27 Dose: Infused Documented By: SENIA Metronidazole (Flagyl) 500 mg in 100 mls @ 100 mls/hr IV Q6H [facility] Last Infusion: 05/14/23 06:30 Dose: Infused Documented By: CARLY Acetaminophen (Ofirmev) 1,000 mg in 100 mls @ 400 mls/hr IV Q6H [facility] Last Infusion: 05/14/23 06:07 Dose: Infused Documented By: CARLY Potassium Chloride/Sodium Chloride (Kcl 20 Meq In 0.9 % Sodium Chl) 20 meq in 1,000 mls @ 42 mls/hr IVCONT .[id number] [facility] Last Admin: 05/14/23 08:00 Dose: 42 mls/hr Documented By: SENIA Lidocaine (Lidocaine 4 % Patch Adh..Patch) 1 patch TRANSDERMA DAILY [facility]; Protocol Last Admin: 05/14/23 08:06 Dose: 1 patch Documented By: SENIA Lisinopril (Lisinopril 10 Mg Tablet) 30 mg PO DAILY [facility]; Protocol Last Admin: 05/11/23 09:25 Dose: Not Given Documented By: VESNA Non-Admin Reason: going to surgery Metoprolol Succinate (Metoprolol Succinate Er 50 Mg Tab.Er.24h) 150 mg PO DAILY [facility]; Protocol Last Admin: 05/11/23 09:25 Dose: Not Given Documented By: VESNA Non-Admin Reason: going to surgery Multivitamins/Vitamin C (Multivitamin Tablet) 1 tab PO DAILY [facility] Last Admin: 05/14/23 08:06 Dose: 1 tab Documented By: SENIA Ondansetron HCl (Ondansetron Hcl 4 Mg/2 Ml Vial) 4 mg IVPUSH Q8H PRN PRN Reason: Nausea and Vomiting Last Admin: 05/13/23 19:34 Dose: 4 mg Documented By: CARLY Ondansetron HCl (Ondansetron Hcl 4 Mg/2 Ml Vial) 4 mg IVPUSH ONCE PRN PRN Reason: Nausea and Vomiting Pantoprazole Sodium (Pantoprazole Sodium 40 Mg/10 Ml Vial) 40 mg IVPUSH DAILY@0630 [facility] Last Admin: 05/14/23 05:32 Dose: 40 mg Documented By: CARLY Simethicone (Simethicone 80 Mg Tab.Chew) 160 mg PO QIDWMHS PRN PRN Reason: Gas Last Admin: 05/10/23 16:20 Dose: 160 mg Documented By: DANIELONOPerlita Sodium Chloride (0.9 % Sodium Chloride Flush 3 Ml Syringe) 3 ml IVFLUSH QSHIFT [facility] Last Admin: 05/14/23 08:07 Dose: 3 ml Documented By: CTORRAllyson Trazodone HCl (Trazodone Hcl 100 Mg Tablet) 200 mg PO BEDTIME [facility] Last Admin: 05/14/23 00:54 Dose: 200 mg Documented By: CARLY Labs 05/14/23 06:04 05/14/23 06:04 Labs: Laboratory Results - last 24 hr 05/14/23 05/14/23 05/14/23 06:04 07:08 07:30 MCV 87.7 MCH 28.9 MCHC 33.0 RDW 15.9 Plt Count 261 MPV 8.9 L Immature Gran % (Auto) 1.3 H Neut % (Auto) 83.4 H Lymph % (Auto) 9.4 L [place] % (Auto) 5.3 Eos % (Auto) 0.3 Baso % (Auto) 0.3 Lymph # (Auto) 2.0 [place] # (Auto) 1.1 Eos # (Auto) 0.1 Baso # (Auto) 0.1 Abs Immat Gran (auto) 0.28 H Absolute Neuts (auto) 17.3 H Absolute Nucleated RBC 0.000 Nucleated RBC % (auto) 0.0 Anion Gap 12 Estim Creat Clear Calc 122.2 Estimated GFR > 60 POC Glucose 55 L* 68 Random Glucose 57 L* Calcium 7.9 L Phosphorus 2.6 L Magnesium 1.6 05/14/23 05/14/23 08:00 11:05 MCV MCH MCHC RDW Plt Count MPV Immature Gran % (Auto) Neut % (Auto) Lymph % (Auto) [place] % (Auto) Eos % (Auto) Baso % (Auto) Lymph # (Auto) [place] # (Auto) Eos # (Auto) Baso # (Auto) Abs Immat Gran (auto) Absolute Neuts (auto) Absolute Nucleated RBC Nucleated RBC % (auto) Anion Gap Estim Creat Clear Calc Estimated GFR POC Glucose 110 96 Random Glucose Calcium Phosphorus Magnesium Procedures Date of Service Date of Service: 05/14/23 Progress Note: A&P Assessment and plan (1) Colonic diverticular abscess: Status: Acute Plan pt isPOD #3 sp explor lap Tye repair colovesic fistula - little ileus ongoing, wbc still elevated on levo and flagyl - neuro - pain controlled with dilauded, sleeping well resp- needs incentive spirometer and oxygen at night prn cardiac - stable consider resuming some of her meds gi- ileus but ostomy looks great - liquid and some gas, gi prophylaxis gu- perez in and draining well, good dilute looking urine fen- cont with iv fluids, some flavored ice, check lytes heme- stable dvt prophylaxis id- wbc still high - follow labs on levo and flagyl,? ID consult if not improving oob and ambulate, dressing changes and PT to see imelda Time Spent With Patient Time: Total time managing care of this patient today ____ minutes. Quality Stroke Does the patient have a stroke diagnosis?: No VTE Prior VTE?: No VTE Risk Level:: Medical - moderate - high VTE Device Contraindication: N/A - Device Ordered VTE Drug Contraindication: Treatment Not Tolerated
[2023-05-14] MEDS: Enoxaparin Sodium 40 MG/0.4 ML SYRINGE SUBCUT (13:27)
[2023-05-14 15:35] LABS: Anion Gap 12 (12-20); Blood Urea Nitrogen 3 mg/dL (9-16); Carbon Dioxide 27 mmol/L (22-29); Chloride 104 mmol/L (96-108); Creatinine Clr Calc Pharmacy 124.9; Estimated Glomerular Filt Rate > 60; Glucose Random 86 mg/dL (60-115); Sodium 140 mmol/L (135-145)
[2023-05-14] MEDS: levoFLOXacin/D5W 500 MG/100 ML PIGGYBACK 80 MG IV (17:26)
[2023-05-14 20:08] LABS: Glucose, Whole Blood 94 mg/dL (60-115)
[2023-05-15] VITALS (9 sets, daily range): BP systolic 99–130; BP diastolic 59–73; PULSE 68–96; RESP 14–18; TEMP 36.2–37.1; O2SAT 93–98
[2023-05-15] MEDS: Acetaminophen 1,000 MG/100 ML PIGGYBACK 400 MG IV ×3 (00:16→17:52)
[2023-05-15] MEDS: metroNIDAZOLE/NS 500 MG/100 ML PIGGYBACK 100 MG IV ×4 (01:14→17:56)
[2023-05-15] MEDS: 0.9 % Sodium Chloride Flush 3 ML SYRINGE IVFLUSH ×3 (01:15→22:42)
[2023-05-15] MEDS: Pantoprazole Sodium 40 MG/10 ML VIAL IVPUSH (05:33)
[2023-05-15] MEDS: HYDROmorphone HCl 0.5 MG/0.5 ML SYRINGE 1 MG IVPUSH ×4 (06:13→21:38)
[2023-05-15] MEDS: Atorvastatin Calcium 20 MG TABLET PO (07:40)
[2023-05-15] MEDS: KCl 20 mEq in 0.9 % Sodium ChL 20 MEQ/1,000 ML IV.SOLN 42 MEQ IVCONT (07:42)
[2023-05-15] MEDS: Metoprolol Succinate ER 50 MG TAB.ER.24H 150 MG PO (07:42)
[2023-05-15] MEDS: Multivitamin TABLET 1 TAB PO (07:42)
--- NOTE | 2023-05-15 08:53 | P.PNGS_ITS ---
Subjective Subjective Date of Service: 05/15/23 <Gabi Victoria PA-C - Last Filed: 05/15/23 08:58> 05/15/23 <Jack Quan MD - Last Filed: 05/15/23 09:03> Interval history: Feeling a little better, tolerating sips of liquids and feels hungry. Ostomy with stool output. Was OOB and ambulated yesterday, feels weak. < Gabi Victroia PA-C - Last Filed: 05/15/23 08:58> Physical Exam 2 Vital Signs: Vital Signs: Last Vital Signs Temp 97.9 F 05/15/23 07:22 Pulse 96 05/15/23 07:22 Resp 18 05/15/23 07:22 BP 130/73 05/15/23 07:22 Pulse Ox 98 05/15/23 07:22 O2 Del Method Room Air 05/15/23 07:22 O2 Flow Rate 2 05/14/23 04:00 Oxygen Flow Rate 1 05/12/23 13:57 BMI result Body Mass Index 35.6 <Gabi Victoria PA-C - Last Filed: 05/15/23 08:58> Const: General: comfortable, no acute distress and alert <STAN Wilder Last Filed: 05/15/23 08:58> Orientation/consciousness: patient oriented x3 <STAN Wilder Last Filed: 05/15/23 08:58> Resp: Effort & Inspection: normal respiratory effort <STAN Wilder Last Filed: 05/15/23 08:58> GI: Inspection: No distended and Yes incision (wound edwin removed, small amount of serous drainage) <STAN Wilder Last Filed: 05/15/23 08:58> Palpation (GI): Soft to palpation, Tenderness to palpation present (GI) (incisional), no guarding and not rigid <STAN Wilder Last Filed: 05/15/23 08:58> Percussion: Yes normal to percussion <STAN Wilder Last Filed: 09/11/23 08:58> Skin: General skin exam: no rashes or lesions noted <Gabi Victoria PA-C - Last Filed: 05/15/23 08:58> Neuro: General: patient oriented x3 <Gabi Victoria PA-C - Last Filed: 05/15/23 08:58> Objective Data Active Medications Amlodipine Besylate (Amlodipine Besylate 5 Mg Tablet) 5 mg PO DAILY [facility]; Protocol Last Admin: 05/11/23 09:24 Dose: Not Given Documented By: VESNA Non-Admin Reason: going to surgery Atorvastatin Calcium (Atorvastatin Calcium 20 Mg Tablet) 20 mg PO DAILY [facility] Last Admin: 05/15/23 07:40 Dose: 20 mg Documented By: SYLVIE Calcium Carbonate (Calcium Carbonate 500 Mg Tablet) 500 mg PO DAILY [facility] Last Admin: 05/15/23 07:42 Dose: 500 mg Documented By: SYLVIE Enoxaparin Sodium (Enoxaparin Sodium 40 Mg/0.4 Ml Syringe) 40 mg SUBCUT Q24H [facility] Last Admin: 05/14/23 13:27 Dose: 40 mg Documented By: SENIA Hydrochlorothiazide (Hydrochlorothiazide 25 Mg Tablet) 25 mg PO DAILY [facility]; Protocol Last Admin: 05/12/23 09:47 Dose: Not Given Documented By: GABRIELA Non-Admin Reason: Physician Held Med Hydromorphone HCl (Hydromorphone Hcl 0.5 Mg/0.5 Ml Syringe) 0.5 mg IVPUSH Q5M PRN; Protocol PRN Reason: Pain, Severe (Pain Scale 7-10) Last Admin: 05/11/23 19:39 Dose: 0.5 mg Documented By: EVA Hydromorphone HCl (Hydromorphone Hcl 0.5 Mg/0.5 Ml Syringe) 1 mg IVPUSH Q4H PRN; Protocol PRN Reason: Pain, Severe (Pain Scale 7-10) Last Admin: 05/15/23 06:13 Dose: 1 mg Documented By: SHARITA Levofloxacin (Levaquin) 500 mg in 100 mls @ 80 mls/hr IV Q24H [facility] Last Infusion: 05/14/23 18:47 Dose: Infused Documented By: SENIA Metronidazole (Flagyl) 500 mg in 100 mls @ 100 mls/hr IV Q6H [facility] Last Infusion: 05/15/23 07:17 Dose: Infused Documented By: SHARITA Acetaminophen (Ofirmev) 1,000 mg in 100 mls @ 400 mls/hr IV Q6H [facility] Last Admin: 05/15/23 05:34 Dose: Not Given Documented By: SHARITA Non-Admin Reason: exceeds max dose Potassium Chloride/Sodium Chloride (Kcl 20 Meq In 0.9 % Sodium Chl) 20 meq in 1,000 mls @ 42 mls/hr IVCONT .[id number] [facility] Last Admin: 05/15/23 07:42 Dose: 42 mls/hr Documented By: SYLVIE Lidocaine (Lidocaine 4 % Patch Adh..Patch) 1 patch TRANSDERMA DAILY [facility]; Protocol Last Admin: 05/15/23 07:40 Dose: Not Given Documented By: SYLVIE Non-Admin Reason: Patient Refused Lisinopril (Lisinopril 10 Mg Tablet) 30 mg PO DAILY [facility]; Protocol Last Admin: 05/11/23 09:25 Dose: Not Given Documented By: VESNA Non-Admin Reason: going to surgery Metoprolol Succinate (Metoprolol Succinate Er 50 Mg Tab.Er.24h) 150 mg PO DAILY [facility]; Protocol Last Admin: 05/15/23 07:42 Dose: 150 mg Documented By: SYLVIE Multivitamins/Vitamin C (Multivitamin Tablet) 1 tab PO DAILY [facility] Last Admin: 05/15/23 07:42 Dose: 1 tab Documented By: SYLVIE Ondansetron HCl (Ondansetron Hcl 4 Mg/2 Ml Vial) 4 mg IVPUSH Q8H PRN PRN Reason: Nausea and Vomiting Last Admin: 05/13/23 19:34 Dose: 4 mg Documented By: CARLY Ondansetron HCl (Ondansetron Hcl 4 Mg/2 Ml Vial) 4 mg IVPUSH ONCE PRN PRN Reason: Nausea and Vomiting Pantoprazole Sodium (Pantoprazole Sodium 40 Mg/10 Ml Vial) 40 mg IVPUSH DAILY@0630 [facility] Last Admin: 05/15/23 05:33 Dose: 40 mg Documented By: SHARITA Potassium Chloride (Potassium Chloride Er 20 Meq Tab.Er.Prt) 20 meq PO BID [facility] Stop: 05/16/23 22:00 Last Admin: 05/15/23 07:41 Dose: Not Given Documented By: SYLVIE Non-Admin Reason: Patient Refused Simethicone (Simethicone 80 Mg Tab.Chew) 160 mg PO QIDWMHS PRN PRN Reason: Gas Last Admin: 05/10/23 16:20 Dose: 160 mg Documented By: GUTIERREZ Sodium Chloride (0.9 % Sodium Chloride Flush 3 Ml Syringe) 3 ml IVFLUSH QSHIFT [facility] Last Admin: 05/15/23 07:42 Dose: 3 ml Documented By: SYLVIE Trazodone HCl (Trazodone Hcl 100 Mg Tablet) 200 mg PO BEDTIME [facility] Last Admin: 05/14/23 21:35 Dose: 200 mg Documented By: WANDA <Gabi Victoria PA-C - Last Filed: 05/15/23 08:58> Labs CBC & Chem 7: 05/14/23 06:04 05/14/23 14:44 <Gabi Victoria PA-C - Last Filed: 05/15/23 08:58> Labs: Laboratory Results - last 24 hr 05/14/23 05/14/23 05/14/23 11:05 14:44 20:05 Anion Gap 12 Estim Creat Clear Calc 124.9 Estimated GFR > 60 POC Glucose 96 94 Random Glucose 86 Calcium 8.0 L <Gabi Victoria PA-C - Last Filed: 05/15/23 08:58> Procedures Date of Service Date of Service: 05/15/23 <Gabi Victoria PA-C - Last Filed: 05/15/23 08:58> 05/15/23 <Jack Quan MD - Last Filed: 05/15/23 09:03> Progress Note: A&P Assessment and plan (1) Colovesical fistula: Status: Acute <STAN Wilder Last Filed: 05/15/23 08:58> (2) Colonic diverticular abscess: Status: Acute <STAN Wilder Last Filed: 05/15/23 08:58> (3) S/P colostomy: Status: Acute <Gabi Victoria PA-C Last Filed: 05/15/23 08:58> Assessment and Plan: 63 year old female admitted with sigmoid diverticulitis, colovescial fistula with abscess now POD #4 s/p exploratory laparotomy, extensive enterolysis, sigmoid resection, colostomy, Tye's pouch, enterectomy, drainage pelvic abscess. Doing overall well post op. Tolerating sips of water and now with stool output from ostomy. Abd with appropriate post op tenderness, wound edwin removed and incision overall clean. Will advance to solid diet as tolerated. Continue to encouraged OOB/ambulation, PT consult. Ostomy education. WBC count still significantly elevated yesterday, will repeat in AM. If remains elevated may need CT scan abd/pelvis. Erwin to remain in place x 3 more weeks. <Gabi Victoria PA-C - Last Filed: 05/15/23 08:58> Time Spent With Patient Time: Total time managing care of this patient today ____ minutes. <Gabi Victoria PA-C Last Filed: 05/15/23 08:58> Quality Stroke Does the patient have a stroke diagnosis?: No <Gabi Victoria PA-C Last Filed: 05/15/23 08:58> VTE Prior VTE?: No <Gabi Victoria PA-C Last Filed: 05/15/23 08:58> VTE Risk Level:: Medical - moderate - high <STAN Wilder Last Filed: 05/15/23 08:58> VTE Device Contraindication: N/A - Device Ordered <Gabi Victoria PA-C Last Filed: 05/15/23 08:58> VTE Drug Contraindication: Treatment Not Tolerated <STAN Wilder Last Filed: 05/15/23 08:58>
--- NOTE | 2023-05-15 09:57 | PM.CNCAR ---
History of Present Illness History of Present Illness Date of Service: 05/15/23 Chief complaint: Sigmoid Diverticulitis w/Abscess Narrative: This is a cardiology consultation regarding PVCs. Per surgical note, patient admitted with sigmoid diverticulitis, colovesical fistula with abscess. Seems that she has undergone exploratory laparotomy, enterolysis, sigmoid resection, colostomy and drainage of pelvic abscess. The consult has been placed regarding PVCs on telemetry. Patient herself does not have any cardiac symptoms at this time. She states she goes to [facility] [place] once an year but she does not know why. There is no history of any coronary artery disease or myocardial infarction or cardiomyopathy or in fact any other cardiac issues in the past. Review of Systems Review of Systems: Yes all other systems are reviewed and are negative Constitutional: Constitutional: Reports as per HPI and Reports no additional constitutional complaints Eyes: Eyes: Reports as per HPI and Denies no additional eye complaints ENT: Denies system reviewed and no additional complaints, except as documented and Reports as per HPI Cardiovascular: Cardiovascular: Reports as per HPI, Reports no additional cardiovascular complaints, Denies acrocyanosis, Denies cool extremities, Denies chest pain, Denies leg edema, Denies lightheadedness, Denies palpitations and Denies dyspnea Respiratory: Respiratory: Reports as per HPI, Denies no additional respiratory complaints and Denies dyspnea Gastrointestinal: Gastrointestinal: Reports as per HPI and Denies no additional gastrointestinal complaints Genitourinary: Genitourinary: Reports as per HPI Musculoskeletal: Musculoskeletal: Reports no additional musculoskeletal complaints and Reports as per HPI Integumentary/Breasts: Skin/Breast: Reports system reviewed and no additional complaints, except as docu Neurologic: Reports system reviewed and no additional complaints, except as documented and Reports as per HPI Psychiatric: Psychiatric: Reports no additional psychiatric complaints and Reports as per HPI Endocrine: Endocrine: Reports no additional endocrine complaints, Reports as per HPI and Denies palpitations Hematologic/Lymphatic: Hematologic/Lymphatic: Reports no additional hematologic/lymphatic complaints and Reports as per HPI Allergic/Immunologic: Allergic/Immunologic: Reports no additional allergic/immunologic complaints and Reports as per HPI [facility] Past Medical History Medical History Hypertension Barretts esophagus GERD (gastroesophageal reflux disease) Family History Family History Father Colon cancer Paternal Aunt Colon cancer Surgical History Surgical History History of esophagogastroduodenoscopy (EGD) Hx of colonoscopy Social History Social History Household Members: None Housing: House Do you presently have visiting nurse or other home services: No Alcohol intake: never Patient Tobacco Use Status: Current everyday Tobacco user Tobacco use type: Cigarette Cigarette Packs Per Day: 0.5 Cigarettes Per Day: 10.0 Years Smoked: 30 Smoked in Last 30 Days: Yes e-Cigarette/Vaping Use: Never Used Patient Interested in Nicotine Replacement: No Patient Given Instructions on How to Stop Smoking: Yes Date Education Initiated: 05/04/23 Use of substances other than those prescribed or required for medical reasons: Yes Substance Use Type: Marijuana Substance Use Frequency: Daily Last Used Substance: Just Prior to Admission Currently Displaying Signs/Symptoms of Drug Intoxication Withdrawal: No Any prior treatment program specific to substance use: No Have you been hit, kicked, punched, or otherwise hurt by someone within the past year? If so, by whom?: No Do you feel safe in your current relationship?: No Current Relationship Is there a partner from a previous relationship who is making you feel unsafe now?: No Are you made to feel afraid or neglected: No Are you DNR?: No Advance Directives: No Advance Directives on File: No Do you have thoughts of harming others: None Do you have a plan to hurt others: No Plan Recently lost weight without trying: Yes How much weight loss: 14-23 pounds Eating poorly because of decreased appetite: Yes Nutrition screen score: 5 Nutrition Risks: Acute nausea or vomiting x1 week and Poor intake 0-25% >4 days Patient : No : No Poor oral hygiene: No Meds Allergies Allergy/AdvReac Type Severity Reaction Status Date / Time amoxicillin [Augmentin] Allergy Unknown GI, Verified 05/03/23 16:29 Difficulty breathing clavulanic acid [Augmentin] Allergy Unknown GI, Verified 05/03/23 16:29 Difficulty breathing codeine [CODEINE] Allergy Unknown SENSITIVIT Verified 05/03/23 16:29 Y erythromycin base Allergy Unknown GI, DIFF Verified 05/03/23 16:29 [Erythromycin Base] BREATHING NSAIDS (Non-Steroidal Allergy Unknown GI UPSET Verified 05/03/23 16:29 Anti-Inflamma [NSAIDS (NON-STEROIDAL ANTI-INFLAMMA] shellfish derived Allergy Unknown Sensitivity Verified 05/03/23 16:29 Sulfa (Sulfonamide Allergy Unknown RASH Verified 05/03/23 16:29 Antibiotics) morphine [MORPHINE] AdvReac Severe NAUSEA Verified 05/03/23 16:29 aspirin [Aspirin] AdvReac Mild STOMACH Verified 05/03/23 16:29 UPSET Active Medications: Current Medications Amlodipine Besylate (Amlodipine Besylate 5 Mg Tablet) 5 mg PO DAILY [facility]; Protocol Last Admin: 05/11/23 09:24 Dose: Not Given Atorvastatin Calcium (Atorvastatin Calcium 20 Mg Tablet) 20 mg PO DAILY [facility] Last Admin: 05/15/23 07:40 Dose: 20 mg Calcium Carbonate (Calcium Carbonate 500 Mg Tablet) 500 mg PO DAILY [facility] Last Admin: 05/15/23 07:42 Dose: 500 mg Enoxaparin Sodium (Enoxaparin Sodium 40 Mg/0.4 Ml Syringe) 40 mg SUBCUT Q24H [facility] Last Admin: 05/14/23 13:27 Dose: 40 mg Hydrochlorothiazide (Hydrochlorothiazide 25 Mg Tablet) 25 mg PO DAILY [facility]; Protocol Last Admin: 05/12/23 09:47 Dose: Not Given Hydromorphone HCl (Hydromorphone Hcl 0.5 Mg/0.5 Ml Syringe) 0.5 mg IVPUSH Q5M PRN; Protocol PRN Reason: Pain, Severe (Pain Scale 7-10) Last Admin: 05/11/23 19:39 Dose: 0.5 mg Hydromorphone HCl (Hydromorphone Hcl 0.5 Mg/0.5 Ml Syringe) 1 mg IVPUSH Q4H PRN; Protocol PRN Reason: Pain, Severe (Pain Scale 7-10) Last Admin: 05/15/23 06:13 Dose: 1 mg Levofloxacin (Levaquin) 500 mg in 100 mls @ 80 mls/hr IV Q24H [facility] Last Infusion: 05/14/23 18:47 Dose: Infused Metronidazole (Flagyl) 500 mg in 100 mls @ 100 mls/hr IV Q6H [facility] Last Infusion: 05/15/23 07:17 Dose: Infused Acetaminophen (Ofirmev) 1,000 mg in 100 mls @ 400 mls/hr IV Q6H [facility] Last Admin: 05/15/23 05:34 Dose: Not Given Potassium Chloride/Sodium Chloride (Kcl 20 Meq In 0.9 % Sodium Chl) 20 meq in 1,000 mls @ 42 mls/hr IVCONT .[id number] [facility] Last Admin: 05/15/23 07:42 Dose: 42 mls/hr Lidocaine (Lidocaine 4 % Patch Adh..Patch) 1 patch TRANSDERMA DAILY [facility]; Protocol Last Admin: 05/15/23 07:40 Dose: Not Given Lisinopril (Lisinopril 10 Mg Tablet) 30 mg PO DAILY [facility]; Protocol Last Admin: 05/11/23 09:25 Dose: Not Given Metoprolol Succinate (Metoprolol Succinate Er 50 Mg Tab.Er.24h) 150 mg PO DAILY [facility]; Protocol Last Admin: 05/15/23 07:42 Dose: 150 mg Multivitamins/Vitamin C (Multivitamin Tablet) 1 tab PO DAILY [facility] Last Admin: 05/15/23 07:42 Dose: 1 tab Ondansetron HCl (Ondansetron Hcl 4 Mg/2 Ml Vial) 4 mg IVPUSH Q8H PRN PRN Reason: Nausea and Vomiting Last Admin: 05/13/23 19:34 Dose: 4 mg Ondansetron HCl (Ondansetron Hcl 4 Mg/2 Ml Vial) 4 mg IVPUSH ONCE PRN PRN Reason: Nausea and Vomiting Pantoprazole Sodium (Pantoprazole Sodium 40 Mg/10 Ml Vial) 40 mg IVPUSH DAILY@0630 [facility] Last Admin: 05/15/23 05:33 Dose: 40 mg Potassium Chloride (Potassium Chloride Er 20 Meq Tab.Er.Prt) 20 meq PO BID [facility] Stop: 05/16/23 22:00 Last Admin: 05/15/23 07:41 Dose: Not Given Simethicone (Simethicone 80 Mg Tab.Chew) 160 mg PO QIDWMHS PRN PRN Reason: Gas Last Admin: 05/10/23 16:20 Dose: 160 mg Sodium Chloride (0.9 % Sodium Chloride Flush 3 Ml Syringe) 3 ml IVFLUSH QSHIFT [facility] Last Admin: 05/15/23 07:42 Dose: 3 ml Trazodone HCl (Trazodone Hcl 100 Mg Tablet) 200 mg PO BEDTIME [facility] Last Admin: 05/14/23 21:35 Dose: 200 mg Home Medications Medication Instructions Recorded Confirmed Last Taken Type amlodipine 5 mg tablet 5 mg PO DAILY 03/01/23 05/04/23 05/04/23 History atorvastatin 20 mg tablet 20 mg PO DAILY 03/01/23 05/04/23 05/04/23 History esomeprazole magnesium 40 mg 40 mg PO DAILY 03/01/23 05/04/23 05/04/23 History capsule,delayed release (Nexium) hydrochlorothiazide 25 mg tablet 25 mg PO DAILY 03/01/23 05/04/23 05/04/23 History lisinopril 30 mg tablet 30 mg PO DAILY 03/01/23 05/04/23 05/04/23 History metoprolol succinate 100 mg 150 mg PO DAILY 03/01/23 05/04/23 05/04/23 History tablet,extended release 24 hr trazodone 100 mg tablet 200 mg PO BEDTIME 03/01/23 05/04/23 05/03/23 History calcium carbonate 500 mg calcium 500 mg PO DAILY 05/04/23 05/04/23 05/04/23 History (1,250 mg) tablet multivitamin 1 tab PO DAILY 05/04/23 05/04/23 05/04/23 History Physical Exam Vital Signs: Vital Signs: Last Vital Signs Temp 97.9 F 05/15/23 07:22 Pulse 96 05/15/23 07:22 Resp 18 05/15/23 07:22 BP 130/73 05/15/23 07:22 Pulse Ox 98 05/15/23 07:22 O2 Del Method Room Air 05/15/23 07:22 O2 Flow Rate 2 05/14/23 04:00 Oxygen Flow Rate 1 05/12/23 13:57 BMI result Body Mass Index 35.6 Const: General: comfortable and no acute distress Orientation/consciousness: patient oriented x3 HEENT: Other: Unremarkable Head: Yes normal to inspection Neck: Neck: Yes normal visual inspection Chest: Chest palpation & inspection: normal inspection of the chest Resp: Auscultation: clear to auscultation bilaterally Cardio: Palpation: normal PMI Heart sounds: S1 normal heart sound present, S2 normal heart sound present, no gallops, no murmurs and no rubs GI: Palpation (GI): Soft to palpation Back/Spine/Pelvis: Other: unremarkable Skin: General skin exam: no rashes or lesions noted Neuro: General: patient oriented x3 Extrem: General: Yes normal to inspection Psych: Mental Status: mental status grossly normal Objective Labs and Meds 05/14/23 06:04 05/14/23 14:44 Lab results: Laboratory Results - last 24 hr 05/14/23 05/14/23 05/14/23 11:05 14:44 20:05 Sodium 140 Potassium 3.0 L Chloride 104 Carbon Dioxide 27 Anion Gap 12 BUN 3 L Creatinine 0.47 L Estim Creat Clear Calc 124.9 Estimated GFR > 60 POC Glucose 96 94 Random Glucose 86 Calcium 8.0 L Assessment and Plan (1) PVC (premature ventricular contraction): Status: Acute (2) NSVT (nonsustained ventricular tachycardia): Status: Acute (3) Hypokalemia: Status: Acute (4) Hypomagnesemia: Status: Acute Plan No EKG available and will be ordered. On telemetry, there are PVCs and very short run of NSVT at 6 beats. Unifocal appearance. Electrolytes levels including potassium as well as magnesium on the lower side. Overall, ventricular ectopy probably related to acute medical issues as well as electrolyte problems. They will need to be aggressively corrected. Echocardiogram for cardiac function assessment and to ensure there is no cardiomyopathy. She does not have any overt symptoms at this time from cardiac standpoint. We will also obtain old records and review them. Will follow up with you. [facility] Time Spent With Patient Time: Total time managing care of this patient today ____ minutes. Procedures Date of Service Date of Service: 05/15/23
--- NOTE | 2023-05-15 10:02 | ECG_ITS ---
Test Reason : pvcs Blood Pressure : / mmHG Vent. Rate : 082 BPM Atrial Rate : 082 BPM P-R Int : 156 ms QRS Dur : 068 ms QT Int : 418 ms P-R-T Axes : 038 040 035 degrees QTc Int : 488 ms Normal sinus rhythm Low voltage QRS Nonspecific T wave abnormality Abnormal ECG When compared with ECG of 18-AUG-2016 09:31, QRS voltage has decreased Nonspecific T wave abnormality now evident in Inferior leads T wave amplitude has decreased in Lateral leads Referred By: Lupillo Sinclair Electronically Signed By:JORGE SALDANA
--- NOTE | 2023-05-15 10:02 | CA_ITS ---
Transthoracic Echocardiogram Patient (Last, First, Middle): Kia Phelps, Gender: Female Date of : 1960 Age: 63 Procedure Date: 05/15/2023 Procedure Type: Transthoracic E[place]ocardiogram [place] [facility] [place]: 157.48 cm Weight: 88. kg BSA: 1.89 m2 Heart Rate: bpm BP: 126 / 67 mmHg Commissioner Of Conciliation: SB Referring MD: Lupillo Sinclair MD Symptoms: PVC Study Quality: Adequate with contrast ECG Rhythm: Sinus Conclusions: - The left ventricular systolic function is mildly decreased. The visually estimated ejection fraction is between 40-45%. - The basal inferior, mid inferior, mid anterolateral, mid anteroseptal, and mid inferolateral segments are hypokinetic. - The mid inferoseptal segment is akinetic. - No obvious valvular pathology seen on this study. Findings Procedure Information Contrast agent, definity, is being given per protocol without apparent complications. Left Ventricle Mildly increased left ventricular cavity size. There is normal left ventricular wall thickness. The left ventricular systolic function is mildly decreased. The visually estimated ejection fraction is between 40-45%. There is evidence of regional wall motion abnormalities. Evidence suggests grade I (mild) diastolic dysfunction. Wall Motion Rest Echo Findings The basal inferior, mid inferior, mid anterolateral, mid anteroseptal, and mid inferolateral segments are hypokinetic. The mid inferoseptal segment is akinetic. Right Ventricle Normal right ventricular cavity size and systolic function. Atria Both atria are normal in size. Aortic Valve There is a normal trileaflet aortic valve. There is no aortic valve stenosis. There is no aortic valve regurgitation. Mitral Valve The mitral valve appears normal. There is mild mitral valve regurgitation. There is no mitral valve stenosis. Pulmonic Valve The pulmonic valve is likely normal. Tricuspid Valve There is trace tricuspid valve regurgitation. There is no evidence of pulmonary hypertension. Great Vessels The asc aorta is normal in size. Venous The inferior vena cava is normal in size. Pericardium/Pleural There is a trivial pericardial effusion. Prior Study Comparison No prior study available for comparison. Recommendations, Care & Conclusions No obvious valvular pathology seen on this study. Measurements 2D Linear Measurements IVSd: 0.70 0.6-0.9/0.6-1.0 cm LVIDd: 5.94 3.9-5.3/4.2-5.9 cm LVIDd Index: 3.14 2.4-3.2/2.2-3.1 cm/m2 LVIDs: 4.67 2.0-3.6 cm LVPWd: 0.78 0.7-1.1 cm LA Diam: 4.40 2.7-3.8/3.0-4.0 cm LAIDs Index: 2.33 1.5-2.3 cm/m2 LV Mass: 206.89 67-162/88-224 g LV Mass Index: 109.47 43-95/49-115 g/m2 LVOT Diam: 1.90 3.0+(-)1.3 cm 2D Systolic Function EF 4C: 56.20 >55% EF 2C: 44.20 >55% EF BiP: 48.10 >55% Mitral Valve MV Pk E: 1.05 MV PK A: 0.96 MV Decel Time: 164.00 E/A: 1.10 E'Lateral: 7.29 E'Medial: 5.77 E/E' Med: 18.20 E/E' Lat: 14.40 PHT: 48.00 MVA PHT: 4.58 Decel Craven: 6.42 Aortic Valve AoV Pk Lan: 1.19 AoV Pk Grad: 6.00 LVOT LVOT Pk Lan: 1.13 LVOT Mn Lan: 0.74 LVOT VTI: 0.22 LVOT Pk Grad: 5.00 LVOT Mn Grad: 3.00 LVOT Diam: 1.90 LVOT Area: 2.84 Diastolic Function MV Pk E: 1.05 MV Pk A: 0.96 E/A: 1.10 E'Medial: 5.77 E/E' Med: 18.20 E' Laterial: 7.29 E/E' Lat: 14.40 Right Ventricle TAPSE (mm): 17.50 TVS' Lan: 13.80 Tricuspid Valve TR Pk Lan: 2.58 TR Pk Grad: 27.00 RA Press: 3.00 RVSP: 30.00 Great Vessels Aorta Sinus of Valsalva: 3.20 2.0-3.5 cm Ao Asc: 3.60 2.1-3.4 cm Pulmonary Valve PV Pk Lan: 0.88 Peak PV Grad: 3.00 Updated in Other Vendor System with Status of Final Lupillo Sinclair MD electronically signed on 05/15/2023 4:38:39 PM with status of Final
[2023-05-15] MEDS: ondansetron HCL 4 MG/2 ML VIAL IVPUSH (11:15)
[2023-05-15] MEDS: Magnesium Sulfate/D5W 1 GM/100 ML PIGGYBACK IV (11:15)
[2023-05-15] MEDS: Enoxaparin Sodium 40 MG/0.4 ML SYRINGE SUBCUT (12:26)
--- NOTE | 2023-05-15 12:42 | MHC.CLN ---
F/U PT WITH PROLONGED NPO STATUS DIET ADVANCED TODAY TO REGULAR; RECOMMEND BLAND, LOW FIBER DIET WITH GELATEIN SUPPLEMENT TID PATIENT STATES THAT ENSURE IS TOO SWEET AND DOES NOT LIKE/WANT REPORTS USUAL MEAL PATTERN IS HIGHER PROTEIN FOODS PLUS VEGETABLES -PT PREFERS LOWER CARB AND NO SWEET FOODS WILL ADD GELATEIN SUPPLEMENT TID TO INCREASE KCALS MONITOR PO INTAKE CLOSELY
[2023-05-15 14:01] LABS: Anion Gap 13 (12-20); Blood Urea Nitrogen < 3 mg/dL (9-16); Calcium 7.4 mg/dL (8.4-10.2); Carbon Dioxide 26 mmol/L (22-29); Chloride 103 mmol/L (96-108); Creatinine Clr Calc Pharmacy 143.1; Estimated Glomerular Filt Rate > 60; Glucose Random 115 mg/dL (60-115); Magnesium 1.9 mg/dL (1.6-2.6); Potassium 3.1 mmol/L (3.3-5.1); Sodium 139 mmol/L (135-145)
--- NOTE | 2023-05-15 14:31 | P.PNUR_ITS ---
Subjective Subjective Date of Service: 05/15/23 Interval history: Nursing reports leaking around catheter Likely to secondary to bladder spasm Start oxybutynin Physical Exam 2 Vital Signs: Vital Signs: Last Vital Signs Temp 97.3 F 05/15/23 11:07 Pulse 69 05/15/23 11:12 Resp 18 05/15/23 11:07 BP 126/67 05/15/23 11:12 Pulse Ox 97 05/15/23 11:12 O2 Del Method Nasal Cannula 05/15/23 11:07 O2 Flow Rate 2 05/15/23 11:07 Oxygen Flow Rate 1 05/12/23 13:57 BMI result Body Mass Index 35.6 Const: General: cooperative, healthy appearing, comfortable and no acute distress Orientation/consciousness: patient oriented x3 HEENT: Face and sinus: Yes normal facial exam Mouth: moist mucous membranes Neck: Neck: Yes normal visual inspection, Yes full ROM and Yes trachea midline Chest: Chest palpation & inspection: normal inspection of the chest Resp: Effort & Inspection: normal respiratory effort, able to speak in complete sentences and no respiratory distress GI: Inspection: Yes normal to inspection Back/Spine/Pelvis: Cervical Spine: normal cervical lordosis Thoracic/Lumbar Spine: thoracic and lumbar spine normal to inspection Skin: General skin exam: no rashes or lesions noted Neuro: General: patient oriented x3, tone normal and moves all extremities Extrem: General: Yes normal to inspection and Yes capillary refill normal Urology Results Labs 05/14/23 06:04 05/15/23 13:35 Labs: Laboratory Results - last 24 hr 05/14/23 05/14/23 05/15/23 14:44 20:05 13:35 Sodium 140 139 Potassium 3.0 L 3.1 L Chloride 104 103 Carbon Dioxide 27 26 Anion Gap 12 13 BUN 3 L < 3 L Creatinine 0.47 L 0.41 L Estim Creat Clear Calc 124.9 143.1 Estimated GFR > 60 > 60 POC Glucose 94 Random Glucose 86 115 Calcium 8.0 L 7.4 L D Magnesium 1.9 Progress Note: A&P Assessment and plan (1) Bladder spasm: Status: Acute Plan Start oxybutynin Time Spent With Patient Time: Total time managing care of this patient today ____ minutes. Progress Note: Quality Stroke Does the patient have a stroke diagnosis?: No
[2023-05-15] MEDS: oxyBUTYnin chloride ER 5 MG TAB.ER.24 10 MG PO (15:15)
[2023-05-15] MEDS: Potassium Chloride/H20 10 MEQ/100 ML PIGGYBACK 100 MEQ IV ×2 (15:16→16:38)
[2023-05-15] MEDS: levoFLOXacin/D5W 500 MG/100 ML PIGGYBACK 80 MG IV (16:50)
[2023-05-15 19:09] LABS: Troponin-I High Sensitivity 815.6 ng/L (<3.5-17.0)
--- NOTE | 2023-05-15 20:39 | ECG_ITS ---
Test Reason : Trops over 800 Blood Pressure : / mmHG Vent. Rate : 087 BPM Atrial Rate : 087 BPM P-R Int : 152 ms QRS Dur : 070 ms QT Int : 424 ms P-R-T Axes : 067 038 -06 degrees QTc Int : 510 ms Normal sinus rhythm Low voltage QRS Nonspecific ST and T wave abnormality Prolonged QT Abnormal ECG When compared with ECG of 15-MAY-2023 10:03, Nonspecific T wave abnormality now evident in Lateral leads Referred By: Suzette Sprague Electronically Signed By:JORGE SALDANA
--- NOTE | 2023-05-15 21:00 | P.CONHOSP_ITS ---
History of Present Illness Data of Consult Service Date: 05/15/23 Requesting physician: Alvaro Oneil Primary Care Provider: Deion Asencio MD [facility] Reason for consult: Elevated troponin, abnormal echo 63-year-old female with history hypertension, Menon's esophagus, GERD admitted to General surgery due to sigmoid diverticulitis with colovesicular fistula with abscess now postop day 4 s/p exploratory laparotomy, extensive enterolysis, sigmoid resection, colostomy, Tye's pouch, enterectomy, and drainage of pelvic abscess with consult placed on hospitalist service for evaluation of elevated troponin level and shortness of breath s/p colectomy. Earlier today, cardiology was consulted on patient due to frequent PVCs noted on telemetry and patient does report occasional palpitations. Her only complaint at this time is a slight shortness of breath which she describes is an air hunger. She denies any chest pains, epigastric pain, vomiting, lightheadedness, calf tenderness, or near-syncope. She has no known history of coronary artery disease or myocardial infarction. No known history of cardiomyopathy or other cardiac issues. She did undergo echocardiogram at the recommendation of Cardiology which did show reduced LV systolic function with EF 45-50% with regional wall motion abnormality earlier today. This is thought to be related to either stress postoperatively versus coronary artery disease. Troponin was ordered and is significant elevated at 815. Chemistries this morning had revealed a mild hypokalemia of 3.1 which was repleted with oral KCl twenty mEq. She also had low corrected calcium of 7.8. Vital signs have been stable, no hypoxia or hypotension. She is afebrile. Denies any worsening of abdominal pain. Does continue to endorse nausea which is not new. Review of Systems 2 Review of Systems: General: No fevers, malaise, unintentional weight loss Cardiovascular: No chest pain, palpitations, or leg edema Respiratory: +sob. No wheezing, cough GI: +abdominal pain, +nausea. No vomiting, diarrhea, constipation, melena, hematochezia : No dysuria, hematuria, increased urinary frequency, decreased urinary output MSK: No myalgia, back pain Neuro: No headaches, weakness, paresthesias Skin: No rashes or lesions [facility] Medical History Hypertension Barretts esophagus GERD (gastroesophageal reflux disease) Family History Father Colon cancer Paternal Aunt Colon cancer Surgical History History of esophagogastroduodenoscopy (EGD) Hx of colonoscopy Social History Household Members: None Housing: House Do you presently have visiting nurse or other home services: No Alcohol intake: never Patient Tobacco Use Status: Current everyday Tobacco user Tobacco use type: Cigarette Cigarette Packs Per Day: 0.5 Cigarettes Per Day: 10.0 Years Smoked: 30 Smoked in Last 30 Days: Yes e-Cigarette/Vaping Use: Never Used Patient Interested in Nicotine Replacement: No Patient Given Instructions on How to Stop Smoking: Yes Date Education Initiated: 05/04/23 Use of substances other than those prescribed or required for medical reasons: Yes Substance Use Type: Marijuana Substance Use Frequency: Daily Last Used Substance: Just Prior to Admission Currently Displaying Signs/Symptoms of Drug Intoxication Withdrawal: No Any prior treatment program specific to substance use: No Have you been hit, kicked, punched, or otherwise hurt by someone within the past year? If so, by whom?: No Do you feel safe in your current relationship?: No Current Relationship Is there a partner from a previous relationship who is making you feel unsafe now?: No Are you made to feel afraid or neglected: No Are you DNR?: No Advance Directives: No Advance Directives on File: No Do you have thoughts of harming others: None Do you have a plan to hurt others: No Plan Recently lost weight without trying: Yes How much weight loss: 14-23 pounds Eating poorly because of decreased appetite: Yes Nutrition screen score: 5 Nutrition Risks: Acute nausea or vomiting x1 week and Poor intake 0-25% >4 days Patient : No : No Poor oral hygiene: No Meds Allergies Allergy/AdvReac Type Severity Reaction Status Date / Time amoxicillin [Augmentin] Allergy Unknown GI, Verified 05/03/23 16:29 Difficulty breathing clavulanic acid [Augmentin] Allergy Unknown GI, Verified 05/03/23 16:29 Difficulty breathing codeine [CODEINE] Allergy Unknown SENSITIVIT Verified 05/03/23 16:29 Y erythromycin base Allergy Unknown GI, DIFF Verified 05/03/23 16:29 [Erythromycin Base] BREATHING NSAIDS (Non-Steroidal Allergy Unknown GI UPSET Verified 05/03/23 16:29 Anti-Inflamma [NSAIDS (NON-STEROIDAL ANTI-INFLAMMA] shellfish derived Allergy Unknown Sensitivity Verified 05/03/23 16:29 Sulfa (Sulfonamide Allergy Unknown RASH Verified 05/03/23 16:29 Antibiotics) morphine [MORPHINE] AdvReac Severe NAUSEA Verified 05/03/23 16:29 aspirin [Aspirin] AdvReac Mild STOMACH Verified 05/03/23 16:29 UPSET Active Medications: Current Medications Amlodipine Besylate (Amlodipine Besylate 5 Mg Tablet) 5 mg PO DAILY REPLACED BY [facility]; Protocol Last Admin: 05/11/23 09:24 Dose: Not Given Aspirin (Aspirin Enteric Coated 81 Mg Tablet.Dr) 81 mg PO DAILY REPLACED BY [facility] Atorvastatin Calcium (Atorvastatin Calcium 80 Mg Tablet) 80 mg PO DAILY REPLACED BY [facility] Calcium Carbonate (Calcium Carbonate 500 Mg Tablet) 500 mg PO DAILY REPLACED BY [facility] Last Admin: 05/15/23 07:42 Dose: 500 mg Heparin Sodium (Porcine) (Heparin Sodium,Porcine 5,000 Unit/Ml Vial) 4,000 unit IVPUSH ONCE ONE Stop: 05/15/23 20:44 Heparin Sodium (Porcine) (Heparin Sodium,Porcine 5,000 Unit/Ml Vial) 3,500 unit 40 unit/kg (3500 unit) IVPUSH PROTOCOL BOLUS PRN; Protocol PRN Reason: 40 unit/kg - Heparin Protocol Heparin Sodium (Porcine) (Heparin Sodium,Porcine 5,000 Unit/Ml Vial) 7,100 unit 80 unit/kg (7100 unit) IVPUSH PROTOCOL BOLUS PRN; Protocol PRN Reason: 80 unit/kg - Heparin Protocol Hydrochlorothiazide (Hydrochlorothiazide 25 Mg Tablet) 25 mg PO DAILY REPLACED BY [facility]; Protocol Last Admin: 05/12/23 09:47 Dose: Not Given Hydromorphone HCl (Hydromorphone Hcl 0.5 Mg/0.5 Ml Syringe) 0.5 mg IVPUSH Q5M PRN; Protocol PRN Reason: Pain, Severe (Pain Scale 7-10) Last Admin: 05/11/23 19:39 Dose: 0.5 mg Hydromorphone HCl (Hydromorphone Hcl 0.5 Mg/0.5 Ml Syringe) 1 mg IVPUSH Q4H PRN; Protocol PRN Reason: Pain, Severe (Pain Scale 7-10) Last Admin: 05/15/23 16:45 Dose: 1 mg Levofloxacin (Levaquin) 500 mg in 100 mls @ 80 mls/hr IV Q24H REPLACED BY [facility] Last Infusion: 05/15/23 18:02 Dose: Infused Metronidazole (Flagyl) 500 mg in 100 mls @ 100 mls/hr IV Q6H REPLACED BY [facility] Last Admin: 05/15/23 17:56 Dose: 100 mls/hr Acetaminophen (Ofirmev) 1,000 mg in 100 mls @ 400 mls/hr IV Q6H REPLACED BY [facility] Last Infusion: 05/15/23 18:24 Dose: Infused Potassium Chloride/Sodium Chloride (Kcl 20 Meq In 0.9 % Sodium Chl) 20 meq in 1,000 mls @ 42 mls/hr IVCONT .[id number] REPLACED BY [facility] Last Admin: 05/15/23 07:42 Dose: 42 mls/hr Heparin Sodium/Sodium Chloride (Heparin Sodium,Porcine/1/2ns) 25,000 unit in 250 mls @ 0 mls/hr IVCONT .Q0M REPLACED BY [facility]; Protocol Lidocaine (Lidocaine 4 % Patch Adh..Patch) 1 patch TRANSDERMA DAILY REPLACED BY [facility]; Protocol Last Admin: 05/15/23 07:40 Dose: Not Given Lisinopril (Lisinopril 10 Mg Tablet) 30 mg PO DAILY REPLACED BY [facility]; Protocol Last Admin: 05/11/23 09:25 Dose: Not Given Metoprolol Succinate (Metoprolol Succinate Er 50 Mg Tab.Er.24h) 150 mg PO DAILY REPLACED BY [facility]; Protocol Last Admin: 05/15/23 07:42 Dose: 150 mg Multivitamins/Vitamin C (Multivitamin Tablet) 1 tab PO DAILY REPLACED BY [facility] Last Admin: 05/15/23 07:42 Dose: 1 tab Ondansetron HCl (Ondansetron Hcl 4 Mg/2 Ml Vial) 4 mg IVPUSH Q8H PRN PRN Reason: Nausea and Vomiting Last Admin: 05/15/23 11:15 Dose: 4 mg Ondansetron HCl (Ondansetron Hcl 4 Mg/2 Ml Vial) 4 mg IVPUSH ONCE PRN PRN Reason: Nausea and Vomiting Oxybutynin Chloride (Oxybutynin Chloride Er 5 Mg Tab.Er.24) 10 mg PO DAILY REPLACED BY [facility] Last Admin: 05/15/23 15:15 Dose: 10 mg Pantoprazole Sodium (Pantoprazole Sodium 40 Mg/10 Ml Vial) 40 mg IVPUSH DAILY@0630 REPLACED BY [facility] Last Admin: 05/15/23 05:33 Dose: 40 mg Potassium Chloride (Potassium Chloride Er 20 Meq Tab.Er.Prt) 20 meq PO BID REPLACED BY [facility] Stop: 05/16/23 22:00 Last Admin: 05/15/23 19:55 Dose: Not Given Simethicone (Simethicone 80 Mg Tab.Chew) 160 mg PO QIDWMHS PRN PRN Reason: Gas Last Admin: 05/10/23 16:20 Dose: 160 mg Sodium Chloride (0.9 % Sodium Chloride Flush 3 Ml Syringe) 3 ml IVFLUSH QSHIFT REPLACED BY [facility] Last Admin: 05/15/23 15:52 Dose: Not Given Trazodone HCl (Trazodone Hcl 100 Mg Tablet) 200 mg PO BEDTIME REPLACED BY [facility] Last Admin: 05/14/23 21:35 Dose: 200 mg Home Medications Medication Instructions Recorded Confirmed Last Taken Type amlodipine 5 mg tablet 5 mg PO DAILY 03/01/23 05/04/23 05/04/23 History atorvastatin 20 mg tablet 20 mg PO DAILY 03/01/23 05/04/23 05/04/23 History esomeprazole magnesium 40 mg 40 mg PO DAILY 03/01/23 05/04/23 05/04/23 History capsule,delayed release (Nexium) hydrochlorothiazide 25 mg tablet 25 mg PO DAILY 03/01/23 05/04/23 05/04/23 History lisinopril 30 mg tablet 30 mg PO DAILY 03/01/23 05/04/23 05/04/23 History metoprolol succinate 100 mg 150 mg PO DAILY 03/01/23 05/04/23 05/04/23 History tablet,extended release 24 hr trazodone 100 mg tablet 200 mg PO BEDTIME 03/01/23 05/04/23 05/03/23 History calcium carbonate 500 mg calcium 500 mg PO DAILY 05/04/23 05/04/23 05/04/23 History (1,250 mg) tablet multivitamin 1 tab PO DAILY 05/04/23 05/04/23 05/04/23 History Physical Exam 2 Vital Signs and Narrative: Vital Signs: Last Vital Signs Temp 97.2 F 05/15/23 19:20 Pulse 90 05/15/23 19:20 Resp 14 05/15/23 19:20 BP 101/62 05/15/23 19:20 Pulse Ox 94 05/15/23 19:20 O2 Del Method Room Air 05/15/23 19:20 O2 Flow Rate 2 05/15/23 11:07 Oxygen Flow Rate 1 05/12/23 13:57 BMI result Body Mass Index 35.6 Constitutional - Awake and Alert, No apparent distress Eyes - PERRLA, EOMI Cardiovascular - S1S2, RRR, No edema Respiratory - Normal lung expansion, Normal respiratory effort, No respiratory distress, CTA bilaterally Extremities - no calf tenderness bilaterally, no swelling Skin - Warm/Dry Neurological - Alert & oriented x3 Psychological - Appropriate affect Results Labs 05/14/23 06:04 05/15/23 13:35 Labs: Laboratory Results - last 24 hr 05/15/23 13:35 Anion Gap 13 Estim Creat Clear Calc 143.1 Estimated GFR > 60 Random Glucose 115 Calcium 7.4 L D Magnesium 1.9 Assessment and Plan (1) NSTEMI (non-ST elevated myocardial infarction): Status: Acute Plan 63-year-old female with history hypertension, Menon's esophagus, GERD admitted to General surgery due to sigmoid diverticulitis with colovesicular fistula with abscess now postop day 4 s/p exploratory laparotomy, extensive enterolysis, sigmoid resection, colostomy, Tye's pouch, enterectomy, and drainage of pelvic abscess with consult placed on hospitalist service for evaluation of elevated troponin level and shortness of breath s/p colectomy. #NSTEMI -Repeat EKG showed NSR, rate [address]/T-wave abnormalities. No ST or depressions -echocardiogram this morning showed reduced LV systolic function with EF 45-50% and regional wall motion abnormalities -troponin 815, patient asymptomatic -initiate heparin per protocol. Discussed with Cardiology and General surgery -ASA 325 mg once given. Continue 81 mg daily. Patient does report remote history of gastric ulcers with bleeding but there is no active bleeding and benefit outweigh risks -repeat troponin a.m., repeat EKG am -monitor on telemetry -appreciate cardiology input # shortness of breath -no postoperative hypoxia -chest x-ray ordered -incentive spirometry encouraged #NSVT/PVCs -Mild hypokalemia repleted, mag normal -continue telemetry -follow lytes Thank you for this consult, will continue following Time Spent With Patient Time: Total time managing care of this patient today ____ minutes.
[2023-05-15] MEDS: traZODone HCL 100 MG TABLET 200 MG PO (21:38)
[2023-05-15] MEDS: Aspirin Enteric Coated 325 MG TABLET.DR PO (21:38)
[2023-05-15 21:43] LABS: Hematocrit 29.2 % (37.0-47.0); Hemoglobin 9.8 g/dl (12.0-16.0); Mean Corpuscular HGB Conc 33.6 g/dl (31.0-35.0); Mean Corpuscular Hemoglobin 29.1 pg (27.0-33.0); Mean Corpuscular Volume 86.6 fL (80.0-98.0); Mean Platelet Volume 8.7 fL (9.4-12.3); Platelet Count 302 X10*3/uL (160-400); Red Blood Count 3.37 X10*6/uL (4.20-5.50); Red Cell Distribution Width 16.6 % (11.0-16.0); White Blood Count 17.1 X10*3/uL (4.8-10.8)
[2023-05-15 21:52] LABS: INTERNATIONAL NORM RATIO 1.8 (0.9-1.1); Prothrombin Time 21.3 SEC (11.1-13.3)
[2023-05-15 21:55] LABS: PTT Heparin Drip 31.5 SEC (53-77.9)
[2023-05-15] MEDS: Heparin Sodium,Porcine/1/2NS 25,000 UNIT/250 ML IV.SOLN 10 UNIT IVCONT (22:03)
[2023-05-15] MEDS: Heparin Sodium,Porcine 5,000 UNIT/ML VIAL 4000 UNIT IVPUSH (22:40)
[2023-05-16] VITALS (8 sets, daily range): BP systolic 86–110; BP diastolic 56–70; PULSE 73–87; RESP 13–18; TEMP 35.9–36.6; O2SAT 91–96
[2023-05-16] MEDS: metroNIDAZOLE/NS 500 MG/100 ML PIGGYBACK 100 MG IV ×4 (00:09→17:34)
[2023-05-16] MEDS: HYDROmorphone HCl 0.5 MG/0.5 ML SYRINGE 1 MG IVPUSH ×5 (02:20→20:11)
[2023-05-16 04:08] LABS: MANUAL DIFF FLAG NO
[2023-05-16 04:13] LABS: Basophils Absolute Auto 0.1 X10*3/uL (0.0-0.2); Basophils Percent Auto 0.4 % (0-2); Eosinophils Absolute Auto 0.1 X10*3/uL (0.0-0.4); Eosinophils Percent Auto 0.6 % (0-4); Hematocrit 28.5 % (37.0-47.0); Hematocrit 28.9 % (37.0-47.0); Hemoglobin 9.3 g/dl (12.0-16.0); Hemoglobin 9.4 g/dl (12.0-16.0); Imm Gran Abs Auto 0.25 X10*3/uL (0.00-0.03); Imm Gran Pct Auto 1.5 % (0.0-0.4); Lymphocytes Percent Auto 11.5 % (20-40); Mean Corpuscular HGB Conc 32.5 g/dl (31.0-35.0); Mean Corpuscular HGB Conc 32.6 g/dl (31.0-35.0); Mean Corpuscular Hemoglobin 28.5 pg (27.0-33.0); Mean Corpuscular Volume 87.6 fL (80.0-98.0); Mean Corpuscular Volume 88.8 fL (80.0-98.0); Mean Platelet Volume 8.5 fL (9.4-12.3); Mean Platelet Volume 8.8 fL (9.4-12.3); Monocytes Absolute Auto 1.3 X10*3/uL (0.1-1.2); Monocytes Percent Auto 7.9 % (2-11); Neutrophils Absolute Auto 13.3 x10*3/uL (2.0-8.3); Neutrophils Percent Auto 78.1 % (45-73); Platelet Count 282 X10*3/uL (160-400); Platelet Count 300 X10*3/uL (160-400); Red Blood Count 3.21 X10*6/uL (4.20-5.50); Red Cell Distribution Width 16.3 % (11.0-16.0); Red Cell Distribution Width 16.4 % (11.0-16.0); White Blood Count 17.1 X10*3/uL (4.8-10.8); White Blood Count 17.3 X10*3/uL (4.8-10.8)
[2023-05-16 04:23] LABS: INTERNATIONAL NORM RATIO 1.8 (0.9-1.1); Prothrombin Time 21.8 SEC (11.1-13.3)
[2023-05-16 04:26] LABS: PTT Heparin Drip 75.7 SEC (53-77.9)
[2023-05-16 04:32] LABS: Anion Gap 10 (12-20); Blood Urea Nitrogen < 3 mg/dL (9-16); Calcium 7.1 mg/dL (8.4-10.2); Carbon Dioxide 30 mmol/L (22-29); Chloride 103 mmol/L (96-108); Creatinine Clr Calc Pharmacy 153.3; Estimated Glomerular Filt Rate > 60; Glucose Fasting 97 mg/dL (60-99); Potassium 3.2 mmol/L (3.3-5.1); Sodium 140 mmol/L (135-145)
[2023-05-16 04:40] LABS: Troponin-I High Sensitivity 401.9 ng/L (<3.5-17.0)
[2023-05-16] MEDS: Acetaminophen 1,000 MG/100 ML PIGGYBACK 400 MG IV ×3 (05:43→17:31)
[2023-05-16] MEDS: Pantoprazole Sodium 40 MG/10 ML VIAL IVPUSH (05:44)
--- NOTE | 2023-05-16 07:00 | ECG_ITS ---
Test Reason : elevated troponins Blood Pressure : / mmHG Vent. Rate : 088 BPM Atrial Rate : 088 BPM P-R Int : 132 ms QRS Dur : 072 ms QT Int : 462 ms P-R-T Axes : 061 023 250 degrees QTc Int : 559 ms Sinus rhythm with frequent Premature ventricular complexes and Fusion complexes Low voltage QRS Nonspecific T wave abnormality Prolonged QT Abnormal ECG When compared with ECG of 15-MAY-2023 20:41, Fusion complexes are now Present Premature ventricular complexes are now Present QT has lengthened Referred By: Suzette Sprague Electronically Signed By:JORGE SALDANA
[2023-05-16 07:45] LABS: Albumin Level 2.2 g/dL (3.5-5.0); Magnesium 1.6 mg/dL (1.6-2.6)
--- NOTE | 2023-05-16 09:29 | P.PNGS_ITS ---
Subjective Subjective Date of Service: 05/16/23 Interval history: Last evening's events noted. Question of NSTEMI. PATIENT CURRENTLY ON HEPARIN DRIP. Hospitalist consult last night. The surgical perspective, patient is tolerating a regular diet. Her ostomy is functioning. Her incision is clean dry and intact. MIKI drain was removed and incident. Physical Exam 2 Vital Signs: Vital Signs: Last Vital Signs Temp 97.8 F 05/16/23 07:25 Pulse 83 05/16/23 07:25 Resp 13 05/16/23 07:25 BP 103/61 05/16/23 07:25 Pulse Ox 92 05/16/23 07:25 O2 Del Method Room Air 05/16/23 07:25 O2 Flow Rate 2 05/16/23 03:53 Oxygen Flow Rate 1 05/12/23 13:57 BMI result Body Mass Index 35.6 GI: Other: Abdomen soft, benign. Ostomy with some solid stool. Incision healing uneventfully. Objective Data Active Medications Amlodipine Besylate (Amlodipine Besylate 5 Mg Tablet) 5 mg PO DAILY [facility]; Protocol Last Admin: 05/11/23 09:24 Dose: Not Given Documented By: VESNA Non-Admin Reason: going to surgery Aspirin (Aspirin Enteric Coated 81 Mg Tablet.) 81 mg PO DAILY [facility] Atorvastatin Calcium (Atorvastatin Calcium 80 Mg Tablet) 80 mg PO DAILY [facility] Calcium Carbonate (Calcium Carbonate 500 Mg Tablet) 500 mg PO DAILY [facility] Last Admin: 05/15/23 07:42 Dose: 500 mg Documented By: SYLVIE Heparin Sodium (Porcine) (Heparin Sodium,Porcine 5,000 Unit/Ml Vial) 3,700 unit 40 unit/kg (3700 unit) IVPUSH PROTOCOL BOLUS PRN; Protocol PRN Reason: 40 unit/kg - Heparin Protocol Heparin Sodium (Porcine) (Heparin Sodium,Porcine 5,000 Unit/Ml Vial) 7,300 unit 80 unit/kg (7300 unit) IVPUSH PROTOCOL BOLUS PRN; Protocol PRN Reason: 80 unit/kg - Heparin Protocol Hydrochlorothiazide (Hydrochlorothiazide 25 Mg Tablet) 25 mg PO DAILY [facility]; Protocol Last Admin: 05/12/23 09:47 Dose: Not Given Documented By: GABRIELA Non-Admin Reason: Physician Held Med Hydromorphone HCl (Hydromorphone Hcl 0.5 Mg/0.5 Ml Syringe) 0.5 mg IVPUSH Q5M PRN; Protocol PRN Reason: Pain, Severe (Pain Scale 7-10) Last Admin: 05/11/23 19:39 Dose: 0.5 mg Documented By: EVA Hydromorphone HCl (Hydromorphone Hcl 0.5 Mg/0.5 Ml Syringe) 1 mg IVPUSH Q4H PRN; Protocol PRN Reason: Pain, Severe (Pain Scale 7-10) Last Admin: 05/16/23 06:25 Dose: 1 mg Documented By: ABHIJIT Levofloxacin (Levaquin) 500 mg in 100 mls @ 80 mls/hr IV Q24H [facility] Last Infusion: 05/15/23 18:02 Dose: Infused Documented By: SYLVIE Metronidazole (Flagyl) 500 mg in 100 mls @ 100 mls/hr IV Q6H [facility] Last Infusion: 05/16/23 07:41 Dose: Infused Documented By: FAY Acetaminophen (Ofirmev) 1,000 mg in 100 mls @ 400 mls/hr IV Q6H [facility] Last Infusion: 05/16/23 05:58 Dose: Infused Documented By: ABHIJIT Potassium Chloride/Sodium Chloride (Kcl 20 Meq In 0.9 % Sodium Chl) 20 meq in 1,000 mls @ 42 mls/hr IVCONT .[id number] [facility] Last Admin: 05/15/23 07:42 Dose: 42 mls/hr Documented By: SYLVIE Heparin Sodium/Sodium Chloride (Heparin Sodium,Porcine/1/2ns) 25,000 unit in 250 mls @ 0 mls/hr IVCONT .Q0M [facility]; Protocol Last Titration: 05/16/23 05:00 Dose: 10.93 units/kg/hr, 10 mls/hr Documented By: ANGELA Co-signed By: ABHIJIT Potassium Chloride (Potassium Chloride/H20) 10 meq in 100 mls @ 100 mls/hr IV Q1H [facility] Stop: 05/16/23 09:44 Lidocaine (Lidocaine 4 % Patch Adh..Patch) 1 patch TRANSDERMA DAILY [facility]; Protocol Last Admin: 05/15/23 07:40 Dose: Not Given Documented By: SYLVIE Non-Admin Reason: Patient Refused Lisinopril (Lisinopril 10 Mg Tablet) 30 mg PO DAILY [facility]; Protocol Last Admin: 05/11/23 09:25 Dose: Not Given Documented By: VESNA Non-Admin Reason: going to surgery Metoprolol Succinate (Metoprolol Succinate Er 50 Mg Tab.Er.24h) 150 mg PO DAILY [facility]; Protocol Last Admin: 05/15/23 07:42 Dose: 150 mg Documented By: SYLVIE Multivitamins/Vitamin C (Multivitamin Tablet) 1 tab PO DAILY [facility] Last Admin: 05/15/23 07:42 Dose: 1 tab Documented By: SYLVIE Ondansetron HCl (Ondansetron Hcl 4 Mg/2 Ml Vial) 4 mg IVPUSH Q8H PRN PRN Reason: Nausea and Vomiting Last Admin: 05/15/23 11:15 Dose: 4 mg Documented By: MARYBETH Ondansetron HCl (Ondansetron Hcl 4 Mg/2 Ml Vial) 4 mg IVPUSH ONCE PRN PRN Reason: Nausea and Vomiting Oxybutynin Chloride (Oxybutynin Chloride Er 5 Mg Tab.Er.24) 10 mg PO DAILY [facility] Last Admin: 05/15/23 15:15 Dose: 10 mg Documented By: MATTIE Pantoprazole Sodium (Pantoprazole Sodium 40 Mg/10 Ml Vial) 40 mg IVPUSH DAILY@0630 [facility] Last Admin: 05/16/23 05:44 Dose: 40 mg Documented By: ABHIJIT Potassium Chloride (Potassium Chloride Er 20 Meq Tab.Er.Prt) 20 meq PO BID [facility] Stop: 05/16/23 22:00 Last Admin: 05/15/23 19:55 Dose: Not Given Documented By: ABHIJIT Non-Admin Reason: Held per covering Dr. Oneil Simethicone (Simethicone 80 Mg Tab.Chew) 160 mg PO QIDWMHS PRN PRN Reason: Gas Last Admin: 05/10/23 16:20 Dose: 160 mg Documented By: GUTIERREZ Sodium Chloride (0.9 % Sodium Chloride Flush 3 Ml Syringe) 3 ml IVFLUSH QSHIFT [facility] Last Admin: 05/15/23 22:42 Dose: 3 ml Documented By: ABHIJIT Trazodone HCl (Trazodone Hcl 100 Mg Tablet) 200 mg PO BEDTIME [facility] Last Admin: 05/15/23 21:38 Dose: 200 mg Documented By: ABHIJIT Labs 05/16/23 04:03 05/16/23 04:03 Labs: Laboratory Results - last 24 hr 05/15/23 05/15/23 05/16/23 13:35 21:08 04:03 MCV 86.6 87.6 MCH 29.1 MCHC 33.6 RDW 16.6 H Plt Count 302 MPV 8.7 L Immature Gran % (Auto) Neut % (Auto) Lymph % (Auto) Hubbard % (Auto) Eos % (Auto) Baso % (Auto) Lymph # (Auto) Hubbard # (Auto) Eos # (Auto) Baso # (Auto) Abs Immat Gran (auto) Absolute Neuts (auto) Absolute Nucleated RBC 0.000 Nucleated RBC % (auto) 0.0 PT 21.3 H D INR 1.8 H aPTT Heparin Protocol 31.5 L Anion Gap 13 Estim Creat Clear Calc 143.1 Estimated GFR > 60 Random Glucose 115 Fasting Glucose Calcium 7.4 L D Magnesium 1.9 Albumin 05/16/23 05/16/23 05/16/23 04:03 04:03 04:03 MCV 88.8 MCH 28.5 29.0 MCHC 32.5 32.6 RDW 16.4 H Plt Count MPV Immature Gran % (Auto) Neut % (Auto) Lymph % (Auto) Hubbard % (Auto) Eos % (Auto) Baso % (Auto) Lymph # (Auto) Hubbard # (Auto) Eos # (Auto) Baso # (Auto) Abs Immat Gran (auto) Absolute Neuts (auto) Absolute Nucleated RBC Nucleated RBC % (auto) PT INR aPTT Heparin Protocol Anion Gap Estim Creat Clear Calc Estimated GFR Random Glucose Fasting Glucose Calcium Magnesium Albumin 05/16/23 05/16/23 05/16/23 04:03 04:03 04:03 MCV MCH MCHC RDW 16.3 H Plt Count 282 300 MPV 8.5 L 8.8 L Immature Gran % (Auto) 1.5 H Neut % (Auto) 78.1 H Lymph % (Auto) 11.5 L Hubbard % (Auto) 7.9 Eos % (Auto) 0.6 Baso % (Auto) 0.4 Lymph # (Auto) 2.0 Hubbard # (Auto) 1.3 H Eos # (Auto) 0.1 Baso # (Auto) 0.1 Abs Immat Gran (auto) 0.25 H Absolute Neuts (auto) 13.3 H Absolute Nucleated RBC 0.000 Nucleated RBC % (auto) PT INR aPTT Heparin Protocol Anion Gap Estim Creat Clear Calc Estimated GFR Random Glucose Fasting Glucose Calcium Magnesium Albumin 05/16/23 05/16/23 04:03 04:03 MCV MCH MCHC RDW Plt Count MPV Immature Gran % (Auto) Neut % (Auto) Lymph % (Auto) Hubbard % (Auto) Eos % (Auto) Baso % (Auto) Lymph # (Auto) Hubbard # (Auto) Eos # (Auto) Baso # (Auto) Abs Immat Gran (auto) Absolute Neuts (auto) Absolute Nucleated RBC 0.000 Nucleated RBC % (auto) 0.0 0.0 PT 21.8 H INR 1.8 H aPTT Heparin Protocol 75.7 D Anion Gap 10 L Estim Creat Clear Calc 153.3 Estimated GFR > 60 Random Glucose Fasting Glucose 97 Calcium 7.1 L Magnesium 1.6 Albumin 2.2 L Procedures Date of Service Date of Service: 05/16/23 Progress Note: A&P Assessment and plan (1) NSTEMI (non-ST elevated myocardial infarction): Status: Acute (2) Colovesical fistula: Status: Acute Plan Surgical perspective, patient is doing well. Cardiac issues were discussed with Cardiology and patient will need a cardiac catheterization once surgical issues have stabilized. Encourage out of bed, incentive spirometry Time Spent With Patient Time: Total time managing care of this patient today ____ minutes. Quality Stroke Does the patient have a stroke diagnosis?: No VTE Prior VTE?: No VTE Risk Level:: Medical - moderate - high VTE Device Contraindication: N/A - Device Ordered VTE Drug Contraindication: Treatment Not Tolerated
[2023-05-16] MEDS: Potassium Chloride/H20 10 MEQ/100 ML PIGGYBACK 100 MEQ IV ×2 (09:38→11:01)
[2023-05-16] MEDS: Aspirin Enteric Coated 81 MG TABLET.DR PO (09:39)
[2023-05-16] MEDS: 0.9 % Sodium Chloride Flush 3 ML SYRINGE IVFLUSH (09:39)
[2023-05-16] MEDS: Atorvastatin Calcium 80 MG TABLET PO (09:40)
--- NOTE | 2023-05-16 09:42 | PM.PNCARD ---
Subjective Subjective Date of Service: 05/16/23 Interval history: she denies any cardiac symptoms. Review of Systems Review of Systems Yes all other systems are reviewed and are negative Constitutional: Reports as per HPI and Reports no additional constitutional complaints Eyes: Reports as per HPI and Denies no additional eye complaints Denies system reviewed and no additional complaints, except as documented and Reports as per HPI Cardiovascular: Reports as per HPI, Reports no additional cardiovascular complaints, Denies acrocyanosis, Denies cool extremities, Denies chest pain, Denies leg edema, Denies lightheadedness, Denies palpitations and Denies dyspnea Respiratory: Reports as per HPI, Denies no additional respiratory complaints and Denies dyspnea Gastrointestinal: Reports as per HPI and Denies no additional gastrointestinal complaints Genitourinary: Reports as per HPI Musculoskeletal: Reports no additional musculoskeletal complaints and Reports as per HPI Skin/Breast: Reports system reviewed and no additional complaints, except as docu Reports system reviewed and no additional complaints, except as documented and Reports as per HPI Psychiatric: Reports no additional psychiatric complaints and Reports as per HPI Endocrine: Reports no additional endocrine complaints, Reports as per HPI and Denies palpitations Hematologic/Lymphatic: Reports no additional hematologic/lymphatic complaints and Reports as per HPI Allergic/Immunologic: Reports no additional allergic/immunologic complaints and Reports as per HPI Physical Exam Vital Signs: Last Vital Signs Temp 97.8 F 05/16/23 07:25 Pulse 83 05/16/23 07:25 Resp 13 05/16/23 07:25 BP 103/61 05/16/23 07:25 Pulse Ox 92 05/16/23 07:25 O2 Del Method Room Air 05/16/23 07:25 O2 Flow Rate 2 05/16/23 03:53 Oxygen Flow Rate 1 05/12/23 13:57 BMI result Body Mass Index 35.6 Const General: comfortable and no acute distress Orientation/consciousness: patient oriented x3 HEENT Other: Unremarkable Head: Yes normal to inspection Neck Neck: Yes normal visual inspection Chest Chest palpation & inspection: normal inspection of the chest Resp Auscultation: clear to auscultation bilaterally Cardio Palpation: normal PMI Heart sounds: S1 normal heart sound present, S2 normal heart sound present, no gallops, no murmurs and no rubs GI Palpation (GI): Soft to palpation Back/Spine/Pelvis Other: unremarkable Skin General skin exam: no rashes or lesions noted Neuro General: patient oriented x3 Extrem General: Yes normal to inspection Psych Mental Status: mental status grossly normal Objective Labs and Meds 05/16/23 04:03 05/16/23 04:03 Lab results: Laboratory Results - last 24 hr 05/15/23 05/15/23 05/15/23 13:35 17:18 21:08 WBC 17.1 H RBC 3.37 L Hgb 9.8 L Hct 29.2 L MCV 86.6 MCH 29.1 MCHC 33.6 RDW 16.6 H Plt Count 302 MPV 8.7 L Immature Gran % (Auto) Neut % (Auto) Lymph % (Auto) [place] % (Auto) Eos % (Auto) Baso % (Auto) Lymph # (Auto) [place] # (Auto) Eos # (Auto) Baso # (Auto) Abs Immat Gran (auto) Absolute Neuts (auto) Absolute Nucleated RBC 0.000 Nucleated RBC % (auto) 0.0 PT 21.3 H D INR 1.8 H aPTT Heparin Protocol 31.5 L Sodium 139 Potassium 3.1 L Chloride 103 Carbon Dioxide 26 Anion Gap 13 BUN < 3 L Creatinine 0.41 L Estim Creat Clear Calc 143.1 Estimated GFR > 60 Random Glucose 115 Fasting Glucose Calcium 7.4 L D Magnesium 1.9 Troponin I High Sens 815.6 H* Albumin 05/16/23 05/16/23 05/16/23 04:03 04:03 04:03 WBC 17.3 H 17.1 H RBC 3.30 L 3.21 L Hgb 9.4 L Hct MCV MCH MCHC RDW Plt Count MPV Immature Gran % (Auto) Neut % (Auto) Lymph % (Auto) [place] % (Auto) Eos % (Auto) Baso % (Auto) Lymph # (Auto) [place] # (Auto) Eos # (Auto) Baso # (Auto) Abs Immat Gran (auto) Absolute Neuts (auto) Absolute Nucleated RBC Nucleated RBC % (auto) PT INR aPTT Heparin Protocol Sodium Potassium Chloride Carbon Dioxide Anion Gap BUN Creatinine Estim Creat Clear Calc Estimated GFR Random Glucose Fasting Glucose Calcium Magnesium Troponin I High Sens Albumin 05/16/23 05/16/23 05/16/23 04:03 04:03 04:03 WBC RBC Hgb 9.3 L Hct 28.9 L 28.5 L MCV 87.6 88.8 MCH 28.5 MCHC RDW Plt Count MPV Immature Gran % (Auto) Neut % (Auto) Lymph % (Auto) [place] % (Auto) Eos % (Auto) Baso % (Auto) Lymph # (Auto) [place] # (Auto) Eos # (Auto) Baso # (Auto) Abs Immat Gran (auto) Absolute Neuts (auto) Absolute Nucleated RBC Nucleated RBC % (auto) PT INR aPTT Heparin Protocol Sodium Potassium Chloride Carbon Dioxide Anion Gap BUN Creatinine Estim Creat Clear Calc Estimated GFR Random Glucose Fasting Glucose Calcium Magnesium Troponin I High Sens Albumin 05/16/23 05/16/23 05/16/23 04:03 04:03 04:03 WBC RBC Hgb Hct MCV MCH 29.0 MCHC 32.5 32.6 RDW 16.4 H 16.3 H Plt Count 282 MPV Immature Gran % (Auto) Neut % (Auto) Lymph % (Auto) [place] % (Auto) Eos % (Auto) Baso % (Auto) Lymph # (Auto) [place] # (Auto) Eos # (Auto) Baso # (Auto) Abs Immat Gran (auto) Absolute Neuts (auto) Absolute Nucleated RBC Nucleated RBC % (auto) PT INR aPTT Heparin Protocol Sodium Potassium Chloride Carbon Dioxide Anion Gap BUN Creatinine Estim Creat Clear Calc Estimated GFR Random Glucose Fasting Glucose Calcium Magnesium Troponin I High Sens Albumin 05/16/23 05/16/23 05/16/23 04:03 04:03 04:03 WBC RBC Hgb Hct MCV MCH MCHC RDW Plt Count 300 MPV 8.5 L 8.8 L Immature Gran % (Auto) 1.5 H Neut % (Auto) 78.1 H Lymph % (Auto) 11.5 L [place] % (Auto) 7.9 Eos % (Auto) 0.6 Baso % (Auto) 0.4 Lymph # (Auto) 2.0 [place] # (Auto) 1.3 H Eos # (Auto) 0.1 Baso # (Auto) 0.1 Abs Immat Gran (auto) 0.25 H Absolute Neuts (auto) 13.3 H Absolute Nucleated RBC 0.000 0.000 Nucleated RBC % (auto) 0.0 PT INR aPTT Heparin Protocol Sodium Potassium Chloride Carbon Dioxide Anion Gap BUN Creatinine Estim Creat Clear Calc Estimated GFR Random Glucose Fasting Glucose Calcium Magnesium Troponin I High Sens Albumin 05/16/23 04:03 WBC RBC Hgb Hct MCV MCH MCHC RDW Plt Count MPV Immature Gran % (Auto) Neut % (Auto) Lymph % (Auto) [place] % (Auto) Eos % (Auto) Baso % (Auto) Lymph # (Auto) [place] # (Auto) Eos # (Auto) Baso # (Auto) Abs Immat Gran (auto) Absolute Neuts (auto) Absolute Nucleated RBC Nucleated RBC % (auto) 0.0 PT 21.8 H INR 1.8 H aPTT Heparin Protocol 75.7 D Sodium 140 Potassium 3.2 L Chloride 103 Carbon Dioxide 30 H Anion Gap 10 L BUN < 3 L Creatinine 0.39 L Estim Creat Clear Calc 153.3 Estimated GFR > 60 Random Glucose Fasting Glucose 97 Calcium 7.1 L Magnesium 1.6 Troponin I High Sens 401.9 H* D Albumin 2.2 L Imaging Radiologist's impression: Impressions Chest X-Ray 05/15/23 21:38 IMPRESSION: Left lower lobe atelectasis/consolidation and small bilateral pleural effusions, left greater than right. Progress Note: A&P Assessment and plan (1) NSTEMI (non-ST elevated myocardial infarction): Status: Acute Assessment and Plan: High sensitivity troponin level 815 and 401. Echocardiogram with LVEF of 40-45%. Wall motion abnormalities noted. Unclear if these are all from underlying coronary disease and perioperative myocardial infarction or stress-induced cardiomyopathy. Could be either. Clinically, she does not have any chest pain. Will treat this is NSTEMI. Continue IV heparin, aspirin, beta-blockers, statins. Correct electrolytes. Once she is ready for discharge from surgical standpoint, then probably transfer to [facility] for cardiac catheterization. Discussed with hospitalist as well as surgeon. Patient agrees to this plan. Time Spent With Patient Time: Total time managing care of this patient today ____ minutes. Progress Note: Quality Stroke Does the patient have a stroke diagnosis?: No Procedures Date of Service Date of Service: 05/16/23
[2023-05-16] MEDS: Multivitamin TABLET 1 TAB PO (09:43)
[2023-05-16] MEDS: oxyBUTYnin chloride ER 5 MG TAB.ER.24 10 MG PO (09:43)
[2023-05-16] MEDS: KCl 20 mEq in 0.9 % Sodium ChL 20 MEQ/1,000 ML IV.SOLN 42 MEQ IVCONT (09:57)
[2023-05-16 10:11] LABS: PTT Heparin Drip 58.2 SEC (53-77.9)
[2023-05-16] MEDS: Metoprolol Succinate ER 50 MG TAB.ER.24H 150 MG PO (10:39)
--- NOTE | 2023-05-16 11:34 | HO.PM.IMPN ---
Subjective Subjective Date of Service: 05/16/23 Interval History: no chest pain or dyspnea no palpitations tolerating solid diet stoma functioning Review of Systems Review of Systems: Yes all other systems are reviewed and are negative Physical Exam Vital Signs: Vital Signs: Last Vital Signs Temp 97.9 F 05/16/23 10:47 Pulse 87 05/16/23 10:47 Resp 13 05/16/23 10:47 BP 103/56 L 05/16/23 10:47 Pulse Ox 93 05/16/23 10:47 O2 Del Method Room Air 05/16/23 10:47 O2 Flow Rate 2 05/16/23 03:53 Oxygen Flow Rate 1 05/12/23 13:57 BMI result Body Mass Index 35.6 Gen: in no acute distress HEENT: sclera anicteric, moist mucus membranes Neck: supple Lungs: clear to auscultation bilaterally Heart: regular rate and rhythm, no murmurs Abd: soft, ostomy with stool Ext: no edema Skin: warm/well-perfused Neuro: alert and oriented x3, no focal findings Psych: appropriate affect Objective Data Active Medications Amlodipine Besylate (Amlodipine Besylate 5 Mg Tablet) 5 mg PO DAILY [facility]; Protocol Last Admin: 05/11/23 09:24 Dose: Not Given Documented By: VESNA Non-Admin Reason: going to surgery Aspirin (Aspirin Enteric Coated 81 Mg Tablet.) 81 mg PO DAILY [facility] Last Admin: 05/16/23 09:39 Dose: 81 mg Documented By: ROCCO Atorvastatin Calcium (Atorvastatin Calcium 80 Mg Tablet) 80 mg PO DAILY [facility] Last Admin: 05/16/23 09:40 Dose: 80 mg Documented By: ROCCO Calcium Carbonate (Calcium Carbonate 500 Mg Tablet) 500 mg PO DAILY [facility] Last Admin: 05/16/23 09:40 Dose: 500 mg Documented By: ROCCO Heparin Sodium (Porcine) (Heparin Sodium,Porcine 5,000 Unit/Ml Vial) 3,700 unit 40 unit/kg (3700 unit) IVPUSH PROTOCOL BOLUS PRN; Protocol PRN Reason: 40 unit/kg - Heparin Protocol Heparin Sodium (Porcine) (Heparin Sodium,Porcine 5,000 Unit/Ml Vial) 7,300 unit 80 unit/kg (7300 unit) IVPUSH PROTOCOL BOLUS PRN; Protocol PRN Reason: 80 unit/kg - Heparin Protocol Hydrochlorothiazide (Hydrochlorothiazide 25 Mg Tablet) 25 mg PO DAILY ARISTIDES; Protocol Last Admin: 05/12/23 09:47 Dose: Not Given Documented By: GABRIELA Non-Admin Reason: Physician Held Med Hydromorphone HCl (Hydromorphone Hcl 0.5 Mg/0.5 Ml Syringe) 0.5 mg IVPUSH Q5M PRN; Protocol PRN Reason: Pain, Severe (Pain Scale 7-10) Last Admin: 05/11/23 19:39 Dose: 0.5 mg Documented By: EVA Hydromorphone HCl (Hydromorphone Hcl 0.5 Mg/0.5 Ml Syringe) 1 mg IVPUSH Q4H PRN; Protocol PRN Reason: Pain, Severe (Pain Scale 7-10) Last Admin: 05/16/23 10:22 Dose: 1 mg Documented By: ROCCO Levofloxacin (Levaquin) 500 mg in 100 mls @ 80 mls/hr IV Q24H [facility] Last Infusion: 05/15/23 18:02 Dose: Infused Documented By: SYLVIE Metronidazole (Flagyl) 500 mg in 100 mls @ 100 mls/hr IV Q6H [facility] Last Admin: 05/16/23 11:02 Dose: 100 mls/hr Documented By: FAY Acetaminophen (Ofirmev) 1,000 mg in 100 mls @ 400 mls/hr IV Q6H [facility] Last Infusion: 05/16/23 11:24 Dose: Infused Documented By: FAY Potassium Chloride/Sodium Chloride (Kcl 20 Meq In 0.9 % Sodium Chl) 20 meq in 1,000 mls @ 42 mls/hr IVCONT .[id number] [facility] Last Admin: 05/16/23 09:57 Dose: 42 mls/hr Documented By: ROCCO Heparin Sodium/Sodium Chloride (Heparin Sodium,Porcine/1/2ns) 25,000 unit in 250 mls @ 0 mls/hr IVCONT .Q0M [facility]; Protocol Last Titration: 05/16/23 05:00 Dose: 10.93 units/kg/hr, 10 mls/hr Documented By: ANGELA Co-signed By: ABHIJIT Lidocaine (Lidocaine 4 % Patch Adh..Patch) 1 patch TRANSDERMA DAILY [facility]; Protocol Last Admin: 05/16/23 09:40 Dose: Not Given Documented By: ROCCO Non-Admin Reason: Patient Refused Lisinopril (Lisinopril 10 Mg Tablet) 30 mg PO DAILY [facility]; Protocol Last Admin: 05/11/23 09:25 Dose: Not Given Documented By: VESNA Non-Admin Reason: going to surgery Metoprolol Succinate (Metoprolol Succinate Er 50 Mg Tab.Er.24h) 150 mg PO DAILY [facility]; Protocol Last Admin: 05/16/23 10:39 Dose: 150 mg Documented By: ROCCO Multivitamins/Vitamin C (Multivitamin Tablet) 1 tab PO DAILY [facility] Last Admin: 05/16/23 09:43 Dose: 1 tab Documented By: ROCCO Ondansetron HCl (Ondansetron Hcl 4 Mg/2 Ml Vial) 4 mg IVPUSH Q8H PRN PRN Reason: Nausea and Vomiting Last Admin: 05/15/23 11:15 Dose: 4 mg Documented By: MARYBETH Ondansetron HCl (Ondansetron Hcl 4 Mg/2 Ml Vial) 4 mg IVPUSH ONCE PRN PRN Reason: Nausea and Vomiting Oxybutynin Chloride (Oxybutynin Chloride Er 5 Mg Tab.Er.24) 10 mg PO DAILY [facility] Last Admin: 05/16/23 09:43 Dose: 10 mg Documented By: ROCCO Pantoprazole Sodium (Pantoprazole Sodium 40 Mg/10 Ml Vial) 40 mg IVPUSH DAILY@0630 [facility] Last Admin: 05/16/23 05:44 Dose: 40 mg Documented By: ABHIJIT Potassium Chloride (Potassium Chloride Er 20 Meq Tab.Er.Prt) 20 meq PO BID [facility] Stop: 05/16/23 22:00 Last Admin: 05/16/23 09:45 Dose: Not Given Documented By: ROCCO Non-Admin Reason: Patient Refused Simethicone (Simethicone 80 Mg Tab.Chew) 160 mg PO QIDWMHS PRN PRN Reason: Gas Last Admin: 05/10/23 16:20 Dose: 160 mg Documented By: GUTIERREZ Sodium Chloride (0.9 % Sodium Chloride Flush 3 Ml Syringe) 3 ml IVFLUSH QSHIFT [facility] Last Admin: 05/16/23 09:39 Dose: 3 ml Documented By: ROCCO Trazodone HCl (Trazodone Hcl 100 Mg Tablet) 200 mg PO BEDTIME [facility] Last Admin: 05/15/23 21:38 Dose: 200 mg Documented By: ABHIJIT Labs 05/16/23 04:03 05/16/23 04:03 Labs: Laboratory Results - last 24 hr 05/15/23 05/15/23 05/16/23 13:35 21:08 04:03 MCV 86.6 87.6 MCH 29.1 MCHC 33.6 RDW 16.6 H Plt Count 302 MPV 8.7 L Immature Gran % (Auto) Neut % (Auto) Lymph % (Auto) [place] % (Auto) Eos % (Auto) Baso % (Auto) Lymph # (Auto) [place] # (Auto) Eos # (Auto) Baso # (Auto) Abs Immat Gran (auto) Absolute Neuts (auto) Absolute Nucleated RBC 0.000 Nucleated RBC % (auto) 0.0 PT 21.3 H D INR 1.8 H aPTT Heparin Protocol 31.5 L Anion Gap 13 Estim Creat Clear Calc 143.1 Estimated GFR > 60 Random Glucose 115 Fasting Glucose Calcium 7.4 L D Magnesium 1.9 Albumin 05/16/23 05/16/23 05/16/23 04:03 04:03 04:03 MCV 88.8 MCH 28.5 29.0 MCHC 32.5 32.6 RDW 16.4 H Plt Count MPV Immature Gran % (Auto) Neut % (Auto) Lymph % (Auto) [place] % (Auto) Eos % (Auto) Baso % (Auto) Lymph # (Auto) [place] # (Auto) Eos # (Auto) Baso # (Auto) Abs Immat Gran (auto) Absolute Neuts (auto) Absolute Nucleated RBC Nucleated RBC % (auto) PT INR aPTT Heparin Protocol Anion Gap Estim Creat Clear Calc Estimated GFR Random Glucose Fasting Glucose Calcium Magnesium Albumin 05/16/23 05/16/23 05/16/23 04:03 04:03 04:03 MCV MCH MCHC RDW 16.3 H Plt Count 282 300 MPV 8.5 L 8.8 L Immature Gran % (Auto) 1.5 H Neut % (Auto) 78.1 H Lymph % (Auto) 11.5 L [place] % (Auto) 7.9 Eos % (Auto) 0.6 Baso % (Auto) 0.4 Lymph # (Auto) 2.0 [place] # (Auto) 1.3 H Eos # (Auto) 0.1 Baso # (Auto) 0.1 Abs Immat Gran (auto) 0.25 H Absolute Neuts (auto) 13.3 H Absolute Nucleated RBC 0.000 Nucleated RBC % (auto) PT INR aPTT Heparin Protocol Anion Gap Estim Creat Clear Calc Estimated GFR Random Glucose Fasting Glucose Calcium Magnesium Albumin 05/16/23 05/16/23 05/16/23 04:03 04:03 09:49 MCV MCH MCHC RDW Plt Count MPV Immature Gran % (Auto) Neut % (Auto) Lymph % (Auto) [place] % (Auto) Eos % (Auto) Baso % (Auto) Lymph # (Auto) [place] # (Auto) Eos # (Auto) Baso # (Auto) Abs Immat Gran (auto) Absolute Neuts (auto) Absolute Nucleated RBC 0.000 Nucleated RBC % (auto) 0.0 0.0 PT 21.8 H INR 1.8 H aPTT Heparin Protocol 75.7 D 58.2 D Anion Gap 10 L Estim Creat Clear Calc 153.3 Estimated GFR > 60 Random Glucose Fasting Glucose 97 Calcium 7.1 L Magnesium 1.6 Albumin 2.2 L Impressions Chest X-Ray 05/15/23 21:38 IMPRESSION: Left lower lobe atelectasis/consolidation and small bilateral pleural effusions, left greater than right. Assessment and Plan (1) NSTEMI (non-ST elevated myocardial infarction): Status: Acute Plan d13 63yo F with HTN, Barretts esophagus, GERD admitted to [facility] with sigmoid diverticulitis with colovesical fistual and abscess POD5 ex-lap/enterolysis/sigmoid resection/colostomy/Tye's pouch/enterectomy/pelvic abscess drainage developed PVCs and found to have NSTEMI NSTEMI - TTE with LVEF mildly reduced to 40-45% with WMAs - question of CAD vs stress cardiomyopathy - no chest pain - continue IV heparin, ASA, metoprolol, statin, lisinopril - once stable from postoperative perspective, [place] [facility] [place] hypo[place] - replete, recheck level in AM hypoCa, not - corrects to 8.5 accounting for hypoalbuminemia HTN - continue metoprolol, lisinopril, amlodipine, HCTZ diverticulitis, complicated - continue levofloxacin + metronidazole VTE ppx - on therapeutic UFH dispo - eventual cardiac cath then likely STR In my clinical judgment, the patient requires continued inpatient hospitalization for the following reasons: IV heparin, postop care Time Spent With Patient Time: Total time managing care of this patient today __45__ minutes. Quality Stroke Does the patient have a stroke diagnosis?: No VTE Prior VTE?: No VTE Risk Level:: Medical - moderate - high VTE Device Contraindication: N/A - Device Ordered VTE Drug Contraindication: Treatment Not Tolerated
[2023-05-16] MEDS: levoFLOXacin/D5W 500 MG/100 ML PIGGYBACK 80 MG IV (17:37)
[2023-05-16] MEDS: traZODone HCL 100 MG TABLET 200 MG PO (20:11)
[2023-05-16] MEDS: Heparin Sodium,Porcine/1/2NS 25,000 UNIT/250 ML IV.SOLN 10 UNIT IVCONT (21:51)
[2023-05-17] VITALS (8 sets, daily range): BP systolic 92–116; BP diastolic 58–61; PULSE 80–91; RESP 16–20; TEMP 36.3–37.3; O2SAT 90–99
[2023-05-17] MEDS: Acetaminophen 1,000 MG/100 ML PIGGYBACK 400 MG IV ×3 (00:04→12:23)
[2023-05-17] MEDS: metroNIDAZOLE/NS 500 MG/100 ML PIGGYBACK 100 MG IV ×4 (00:05→17:27)
[2023-05-17] MEDS: Albumin Human 25 % 100 ML IV ×2 (00:05→00:58)
--- NOTE | 2023-05-17 03:24 | PC.NURSE ---
At approx 2330- BP 86/62, HR 70-80s, pt A&Ox4 and denies any s/s. MD Garcias notified, new order for Albumin 25% 100 mL IV x2. BP improved to 92/62 at approx 0315.
[2023-05-17] MEDS: Pantoprazole Sodium 40 MG/10 ML VIAL IVPUSH (05:05)
[2023-05-17] MEDS: HYDROmorphone HCl 0.5 MG/0.5 ML SYRINGE IVPUSH (05:05)
[2023-05-17] MEDS: ondansetron HCL 4 MG/2 ML VIAL IVPUSH (05:13)
[2023-05-17 06:04] LABS: Hematocrit 25.1 % (37.0-47.0); Hemoglobin 8.1 g/dl (12.0-16.0); Mean Corpuscular HGB Conc 32.3 g/dl (31.0-35.0); Mean Corpuscular Hemoglobin 28.5 pg (27.0-33.0); Mean Corpuscular Volume 88.4 fL (80.0-98.0); Mean Platelet Volume 8.6 fL (9.4-12.3); Platelet Count 251 X10*3/uL (160-400); Red Blood Count 2.84 X10*6/uL (4.20-5.50); Red Cell Distribution Width 16.5 % (11.0-16.0); White Blood Count 13.5 X10*3/uL (4.8-10.8)
[2023-05-17 06:16] LABS: Anion Gap 9 (12-20); Blood Urea Nitrogen 3 mg/dL (9-16); Calcium 7.5 mg/dL (8.4-10.2); Carbon Dioxide 30 mmol/L (22-29); Chloride 104 mmol/L (96-108); Estimated Glomerular Filt Rate > 60; Glucose Random 92 mg/dL (60-115); Magnesium 1.5 mg/dL (1.6-2.6); Potassium 3.3 mmol/L (3.3-5.1); Sodium 140 mmol/L (135-145)
[2023-05-17] MEDS: KCl 20 mEq in 0.9 % Sodium ChL 20 MEQ/1,000 ML IV.SOLN 42 MEQ IVCONT (08:46)
[2023-05-17] MEDS: Multivitamin TABLET 1 TAB PO (08:48)
[2023-05-17] MEDS: Atorvastatin Calcium 80 MG TABLET PO (08:48)
[2023-05-17] MEDS: oxyBUTYnin chloride ER 5 MG TAB.ER.24 10 MG PO (08:48)
[2023-05-17] MEDS: Aspirin Enteric Coated 81 MG TABLET.DR PO (08:49)
[2023-05-17] MEDS: Magnesium Sulfate/H2O 2 GM/50 ML PIGGYBACK IV (08:49)
--- NOTE | 2023-05-17 09:16 | P.PNGS_ITS ---
Subjective Subjective Date of Service: 05/17/23 Interval history: Vomited this morning following IV dilaudid. Feels better and nausea resolved. Pain improving. Has been tolerating solid food, PO intake gradually increasing. Does not want to add ensure supplements. Was on bed rest yesterday per cardiology, continues to feel weak. Physical Exam 2 Vital Signs: Vital Signs: Last Vital Signs Temp 98.6 F 05/17/23 07:11 Pulse 82 05/17/23 07:11 Resp 18 05/17/23 07:11 BP 100/59 L 05/17/23 07:11 Pulse Ox 99 05/17/23 07:11 O2 Del Method Nasal Cannula 05/17/23 07:11 O2 Flow Rate 2 05/17/23 07:11 Oxygen Flow Rate 2 05/17/23 03:23 BMI result Body Mass Index 35.6 Const: General: comfortable, no acute distress and alert O rientation/consciousness: patient oriented x3 Resp: Effort & Inspection: normal respiratory effort Cardio: Rate: regular rate GI: Other: ostomy viable appearing, stool output in appliance Inspection: No distended and Yes incision (clean) Palpation (GI): Soft to palpation, Tenderness to palpation present (GI), no guarding and not rigid Skin: General skin exam: no rashes or lesions noted Neuro: General: patient oriented x3 and moves all extremities Objective Data Active Medications Amlodipine Besylate (Amlodipine Besylate 5 Mg Tablet) 5 mg PO DAILY [facility]; Protocol Last Admin: 05/11/23 09:24 Dose: Not Given Documented By: VESNA Non-Admin Reason: going to surgery Aspirin (Aspirin Enteric Coated 81 Mg Tablet.) 81 mg PO DAILY [facility] Last Admin: 05/17/23 08:49 Dose: 81 mg Documented By: FAY Atorvastatin Calcium (Atorvastatin Calcium 80 Mg Tablet) 80 mg PO DAILY [facility] Last Admin: 05/17/23 08:48 Dose: 80 mg Documented By: FAY Calcium Carbonate (Calcium Carbonate 500 Mg Tablet) 500 mg PO DAILY [facility] Last Admin: 05/17/23 08:49 Dose: 500 mg Documented By: FAY Heparin Sodium (Porcine) (Heparin Sodium,Porcine 5,000 Unit/Ml Vial) 3,700 unit 40 unit/kg (3700 unit) IVPUSH PROTOCOL BOLUS PRN; Protocol PRN Reason: 40 unit/kg - Heparin Protocol Heparin Sodium (Porcine) (Heparin Sodium,Porcine 5,000 Unit/Ml Vial) 7,300 unit 80 unit/kg (7300 unit) IVPUSH PROTOCOL BOLUS PRN; Protocol PRN Reason: 80 unit/kg - Heparin Protocol Hydrochlorothiazide (Hydrochlorothiazide 25 Mg Tablet) 25 mg PO DAILY [facility]; Protocol Last Admin: 05/12/23 09:47 Dose: Not Given Documented By: GABRIELA Non-Admin Reason: Physician Held Med Hydromorphone HCl (Hydromorphone Hcl 0.5 Mg/0.5 Ml Syringe) 0.5 mg IVPUSH Q5M PRN; Protocol PRN Reason: Pain, Severe (Pain Scale 7-10) Last Admin: 05/17/23 05:05 Dose: 0.5 mg Documented By: KEATON Hydromorphone HCl (Hydromorphone Hcl 0.5 Mg/0.5 Ml Syringe) 1 mg IVPUSH Q4H PRN; Protocol PRN Reason: Pain, Severe (Pain Scale 7-10) Last Admin: 05/16/23 20:11 Dose: 1 mg Documented By: JOSUE Levofloxacin (Levaquin) 500 mg in 100 mls @ 80 mls/hr IV Q24H [facility] Last Infusion: 05/16/23 19:13 Dose: Infused Documented By: FAY Metronidazole (Flagyl) 500 mg in 100 mls @ 100 mls/hr IV Q6H [facility] Last Infusion: 05/17/23 05:51 Dose: Infused Documented By: KEATON Acetaminophen (Ofirmev) 1,000 mg in 100 mls @ 400 mls/hr IV Q6H [facility] Last Infusion: 05/17/23 05:50 Dose: Infused Documented By: KEATON Heparin Sodium/Sodium Chloride (Heparin Sodium,Porcine/1/2ns) 25,000 unit in 250 mls @ 0 mls/hr IVCONT .Q0M [facility]; Protocol Last Admin: 05/16/23 21:51 Dose: 10.93 units/kg/hr, 10 mls/hr Documented By: JOSUE Co-signed By: CARMEN Magnesium Sulfate (Magnesium Sulfate/H2o) 2 gm in 50 mls @ 25 mls/hr IV ONCE ONE Stop: 05/17/23 09:20 Last Admin: 05/17/23 08:49 Dose: 25 mls/hr Documented By: FAY Lidocaine (Lidocaine 4 % Patch Adh..Patch) 1 patch TRANSDERMA DAILY [facility]; Protocol Last Admin: 05/17/23 08:49 Dose: Not Given Documented By: FAY Non-Admin Reason: Patient Refused Lisinopril (Lisinopril 10 Mg Tablet) 30 mg PO DAILY [facility]; Protocol Last Admin: 05/11/23 09:25 Dose: Not Given Documented By: VESNA Non-Admin Reason: going to surgery Metoprolol Succinate (Metoprolol Succinate Er 50 Mg Tab.Er.24h) 150 mg PO DAILY [facility]; Protocol Last Admin: 05/17/23 08:48 Dose: 150 mg Documented By: FAY Multivitamins/Vitamin C (Multivitamin Tablet) 1 tab PO DAILY [facility] Last Admin: 05/17/23 08:48 Dose: 1 tab Documented By: FAY Ondansetron HCl (Ondansetron Hcl 4 Mg/2 Ml Vial) 4 mg IVPUSH Q8H PRN PRN Reason: Nausea and Vomiting Last Admin: 05/17/23 05:13 Dose: 4 mg Documented By: KEATON Ondansetron HCl (Ondansetron Hcl 4 Mg/2 Ml Vial) 4 mg IVPUSH ONCE PRN PRN Reason: Nausea and Vomiting Oxybutynin Chloride (Oxybutynin Chloride Er 5 Mg Tab.Er.24) 10 mg PO DAILY [facility] Last Admin: 05/17/23 08:48 Dose: 10 mg Documented By: FAY Pantoprazole Sodium (Pantoprazole Sodium 40 Mg/10 Ml Vial) 40 mg IVPUSH DAILY@0630 [facility] Last Admin: 05/17/23 05:05 Dose: 40 mg Documented By: KEATON Simethicone (Simethicone 80 Mg Tab.Chew) 160 mg PO QIDWMHS PRN PRN Reason: Gas Last Admin: 05/10/23 16:20 Dose: 160 mg Documented By: GUTIERREZ Sodium Chloride (0.9 % Sodium Chloride Flush 3 Ml Syringe) 3 ml IVFLUSH QSHIFT [facility] Last Admin: 05/17/23 08:49 Dose: Not Given Documented By: FAY Non-Admin Reason: IV Running Trazodone HCl (Trazodone Hcl 100 Mg Tablet) 200 mg PO BEDTIME [facility] Last Admin: 05/16/23 20:11 Dose: 200 mg Documented By: JOSUE Labs 05/17/23 05:55 05/17/23 05:55 Labs: Laboratory Results - last 24 hr 05/16/23 05/17/23 09:49 05:55 MCV 88.4 MCH 28.5 MCHC 32.3 RDW 16.5 H Plt Count 251 MPV 8.6 L Absolute Nucleated RBC 0.000 Nucleated RBC % (auto) 0.0 aPTT Heparin Protocol 58.2 D 68.0 Anion Gap 9 L Estim Creat Clear Calc 130.0 Estimated GFR > 60 Random Glucose 92 Calcium 7.5 L Magnesium 1.5 L Procedures Date of Service Date of Service: 05/17/23 Progress Note: A&P Assessment and plan (1) NSTEMI (non-ST elevated myocardial infarction): Status: Acute (2) NSVT (nonsustained ventricular tachycardia): Status: Acute (3) S/P colostomy: Status: Acute (4) Colovesical fistula: Status: Acute Plan Continues to do overall well from surgical standpoint. Tolerating diet with ostomy output. Incision clean. WBC has significantly improved this morning. Patient is now surgically stable for transfer to [facility] for cardiac catheterization. Will discuss with medicine to facilitate. Cont IV abx, pain control. Time Spent With Patient Time: Total time managing care of this patient today ____ minutes. Quality Stroke Does the patient have a stroke diagnosis?: No VTE Prior VTE?: No VTE Risk Level:: Medical - moderate - high VTE Device Contraindication: N/A - Device Ordered VTE Drug Contraindication: Treatment Not Tolerated
[2023-05-17] MEDS: Metoclopramide HCl 10 MG/2 ML VIAL 5 MG IVPUSH ×3 (09:48→20:58)
[2023-05-17] MEDS: Furosemide 20 MG/2 ML VIAL IVPUSH ×2 (09:48→16:43)
[2023-05-17] MEDS: Metoprolol Succinate ER 50 MG TAB.ER.24H 150 MG PO (09:57)
--- NOTE | 2023-05-17 10:03 | MHC.CLN ---
F/U PO INTAKE VARIABLE DIET REMAINS REGULAR PT RECEIVING GELATEIN SUPPLEMENT TID TO INCREASE KCALS CONTINUE TO ENCOURAGE PO INTAKE AND SUPPLEMENT
--- NOTE | 2023-05-17 10:13 | PM.PNCARD ---
Subjective Subjective Date of Service: 05/17/23 Interval history: She doesn't have any clear cardiac symptoms. Still recovering from the GI issues. Review of Systems Review of Systems Yes all other systems are reviewed and are negative Constitutional: Reports as per HPI and Reports no additional constitutional complaints Eyes: Reports as per HPI and Denies no additional eye complaints Denies system reviewed and no additional complaints, except as documented and Reports as per HPI Cardiovascular: Reports as per HPI, Reports no additional cardiovascular complaints, Denies acrocyanosis, Denies cool extremities, Denies chest pain, Denies leg edema, Denies lightheadedness, Denies palpitations and Denies dyspnea Respiratory: Reports as per HPI, Denies no additional respiratory complaints and Denies dyspnea Gastrointestinal: Reports as per HPI and Denies no additional gastrointestinal complaints Genitourinary: Reports as per HPI Musculoskeletal: Reports no additional musculoskeletal complaints and Reports as per HPI Skin/Breast: Reports system reviewed and no additional complaints, except as docu Reports system reviewed and no additional complaints, except as documented and Reports as per HPI Psychiatric: Reports no additional psychiatric complaints and Reports as per HPI Endocrine: Reports no additional endocrine complaints, Reports as per HPI and Denies palpitations Hematologic/Lymphatic: Reports no additional hematologic/lymphatic complaints and Reports as per HPI Allergic/Immunologic: Reports no additional allergic/immunologic complaints and Reports as per HPI Physical Exam Vital Signs: Last Vital Signs Temp 98.6 F 05/17/23 07:11 Pulse 82 05/17/23 07:11 Resp 18 05/17/23 07:11 BP 100/59 L 05/17/23 07:11 Pulse Ox 99 05/17/23 07:11 O2 Del Method Nasal Cannula 05/17/23 07:11 O2 Flow Rate 2 05/17/23 07:11 Oxygen Flow Rate 2 05/17/23 03:23 BMI result Body Mass Index 35.6 Const General: comfortable, no acute distress, ill appearing and tired appearing Orientation/consciousness: patient oriented x3 HEENT Other: Unremarkable Head: Yes normal to inspection Neck Neck: Yes normal visual inspection Chest Chest palpation & inspection: normal inspection of the chest Resp Other: slight wheeze Auscultation: clear to auscultation bilaterally Cardio Palpation: normal PMI Heart sounds: S1 normal heart sound present, S2 normal heart sound present, no gallops, no murmurs and no rubs GI Palpation (GI): Soft to palpation Back/Spine/Pelvis Other: unremarkable Skin General skin exam: no rashes or lesions noted Neuro General: patient oriented x3 Extrem General: Yes normal to inspection Psych Mental Status: mental status grossly normal Objective Labs and Meds 05/17/23 05:55 05/17/23 05:55 Lab results: Laboratory Results - last 24 hr 05/16/23 05/17/23 09:49 05:55 WBC 13.5 H RBC 2.84 L Hgb 8.1 L Hct 25.1 L MCV 88.4 MCH 28.5 MCHC 32.3 RDW 16.5 H Plt Count 251 MPV 8.6 L Absolute Nucleated RBC 0.000 Nucleated RBC % (auto) 0.0 aPTT Heparin Protocol 58.2 D 68.0 Sodium 140 Potassium 3.3 Chloride 104 Carbon Dioxide 30 H Anion Gap 9 L BUN 3 L Creatinine 0.46 L Estim Creat Clear Calc 130.0 Estimated GFR > 60 Random Glucose 92 Calcium 7.5 L Magnesium 1.5 L Imaging Radiologist's impression: Impressions Abscess Drainage CT 05/05/23 15:10 IMPRESSION: Aspiration of 2 pelvic fluid collections with no grossly purulent fluid identified. Above report called to referring physician at completion of the procedure. Progress Note: A&P Assessment and plan (1) NSTEMI (non-ST elevated myocardial infarction): Status: Acute Assessment and Plan: High sensitivity troponin level 815 and 401. Echocardiogram with LVEF of 40-45%. Wall motion abnormalities noted. Unclear if these are all from underlying coronary disease and perioperative myocardial infarction or stress-induced cardiomyopathy. Could be either. Clinically, she does not have any chest pain. Currently, being treated as NSTEMI. IV heparin for 48 hours, aspirin, beta-blockers, statins. As well as cleared from surgery, we can sent to [facility] for cardiac catheterization. Otherwise, avoid excessive fluids as she otherwise might get volume overloaded. Will discuss with her primary technical implementation lead. Discussed with Dr. Arambula and Dr. Quan. Time Spent With Patient Time: Total time managing care of this patient today ____ minutes. Progress Note: Quality Stroke Does the patient have a stroke diagnosis?: No Procedures Date of Service Date of Service: 05/17/23
[2023-05-17] MEDS: HYDROmorphone HCl 0.5 MG/0.5 ML SYRINGE 1 MG IVPUSH ×2 (10:19→17:17)
--- NOTE | 2023-05-17 10:57 | P.PNIM_ITS ---
Subjective Subjective Date of Service: 05/17/23 Interval History: no further PVCs no chest pain or palpitations c/o nausea/fullness with trying to eat solids; stoma functioning well Review of Systems Review of Systems: Yes all other systems are reviewed and are negative Physical Exam 2 Vital Signs: Vital Signs: Last Vital Signs Temp 98.6 F 05/17/23 07:11 Pulse 82 05/17/23 07:11 Resp 18 05/17/23 07:11 BP 100/59 L 05/17/23 07:11 Pulse Ox 99 05/17/23 07:11 O2 Del Method Nasal Cannula 05/17/23 07:11 O2 Flow Rate 2 05/17/23 07:11 Oxygen Flow Rate 2 05/17/23 03:23 BMI result Body Mass Index 35.6 Gen: in no acute distress HEENT: sclera anicteric, moist mucus membranes Neck: supple Lungs: clear to auscultation bilaterally Heart: regular rate and rhythm, no murmurs Abd: soft, ostomy with stool Ext: 1+ leg edema bilaterally Skin: warm/well-perfused Neuro: alert and oriented x3, no focal findings Psych: appropriate affect Objective Data Active Medications Amlodipine Besylate (Amlodipine Besylate 5 Mg Tablet) 5 mg PO DAILY [facility]; Protocol Last Admin: 05/11/23 09:24 Dose: Not Given Documented By: VESNA Non-Admin Reason: going to surgery Aspirin (Aspirin Enteric Coated 81 Mg Tablet.) 81 mg PO DAILY [facility] Last Admin: 05/17/23 08:49 Dose: 81 mg Documented By: FAY Atorvastatin Calcium (Atorvastatin Calcium 80 Mg Tablet) 80 mg PO DAILY [facility] Last Admin: 05/17/23 08:48 Dose: 80 mg Documented By: FAY Calcium Carbonate (Calcium Carbonate 500 Mg Tablet) 500 mg PO DAILY [facility] Last Admin: 05/17/23 09:34 Dose: Not Given Documented By: FAY Non-Admin Reason: Patient Refused Furosemide (Furosemide 20 Mg/2 Ml Vial) 20 mg IVPUSH Q8H [facility]; Protocol Stop: 05/17/23 17:31 Last Admin: 05/17/23 09:48 Dose: 20 mg Documented By: FAY Heparin Sodium (Porcine) (Heparin Sodium,Porcine 5,000 Unit/Ml Vial) 3,700 unit 40 unit/kg (3700 unit) IVPUSH PROTOCOL BOLUS PRN; Protocol PRN Reason: 40 unit/kg - Heparin Protocol Heparin Sodium (Porcine) (Heparin Sodium,Porcine 5,000 Unit/Ml Vial) 7,300 unit 80 unit/kg (7300 unit) IVPUSH PROTOCOL BOLUS PRN; Protocol PRN Reason: 80 unit/kg - Heparin Protocol Hydrochlorothiazide (Hydrochlorothiazide 25 Mg Tablet) 25 mg PO DAILY [facility]; Protocol Last Admin: 05/12/23 09:47 Dose: Not Given Documented By: GABRIELA Non-Admin Reason: Physician Held Med Hydromorphone HCl (Hydromorphone Hcl 0.5 Mg/0.5 Ml Syringe) 0.5 mg IVPUSH Q5M PRN; Protocol PRN Reason: Pain, Severe (Pain Scale 7-10) Last Admin: 05/17/23 05:05 Dose: 0.5 mg Documented By: KEATON Hydromorphone HCl (Hydromorphone Hcl 0.5 Mg/0.5 Ml Syringe) 1 mg IVPUSH Q4H PRN; Protocol PRN Reason: Pain, Severe (Pain Scale 7-10) Last Admin: 05/17/23 10:19 Dose: 1 mg Documented By: FAY Levofloxacin (Levaquin) 500 mg in 100 mls @ 80 mls/hr IV Q24H [facility] Last Infusion: 05/16/23 19:13 Dose: Infused Documented By: FAY Metronidazole (Flagyl) 500 mg in 100 mls @ 100 mls/hr IV Q6H [facility] Last Infusion: 05/17/23 05:51 Dose: Infused Documented By: KEATON Acetaminophen (Ofirmev) 1,000 mg in 100 mls @ 400 mls/hr IV Q6H [facility] Last Infusion: 05/17/23 05:50 Dose: Infused Documented By: KEATON Heparin Sodium/Sodium Chloride (Heparin Sodium,Porcine/1/2ns) 25,000 unit in 250 mls @ 0 mls/hr IVCONT .Q0M [facility]; Protocol Last Admin: 05/16/23 21:51 Dose: 10.93 units/kg/hr, 10 mls/hr Documented By: JOSUE Co-signed By: CARMEN Lidocaine (Lidocaine 4 % Patch Adh..Patch) 1 patch TRANSDERMA DAILY [facility]; Protocol Last Admin: 05/17/23 08:49 Dose: Not Given Documented By: FAY Non-Admin Reason: Patient Refused Lisinopril (Lisinopril 10 Mg Tablet) 30 mg PO DAILY [facility]; Protocol Last Admin: 05/11/23 09:25 Dose: Not Given Documented By: VESNA Non-Admin Reason: going to surgery Metoclopramide HCl (Metoclopramide Hcl 10 Mg/2 Ml Vial) 5 mg IVPUSH Q4H PRN PRN Reason: Nausea Last Admin: 05/17/23 09:48 Dose: 5 mg Documented By: FAY Metoprolol Succinate (Metoprolol Succinate Er 100 Mg Tab.Er.24h) 100 mg PO DAILY [facility]; Protocol Multivitamins/Vitamin C (Multivitamin Tablet) 1 tab PO DAILY [facility] Last Admin: 05/17/23 08:48 Dose: 1 tab Documented By: FAY Ondansetron HCl (Ondansetron Hcl 4 Mg/2 Ml Vial) 8 mg IVPUSH Q8H [facility] Stop: 05/17/23 13:01 Oxybutynin Chloride (Oxybutynin Chloride Er 5 Mg Tab.Er.24) 10 mg PO DAILY [facility] Last Admin: 05/17/23 08:48 Dose: 10 mg Documented By: FAY Pantoprazole Sodium (Pantoprazole Sodium 40 Mg/10 Ml Vial) 40 mg IVPUSH DAILY@0630 [facility] Last Admin: 05/17/23 05:05 Dose: 40 mg Documented By: KEATON Simethicone (Simethicone 80 Mg Tab.Chew) 160 mg PO QIDWMHS PRN PRN Reason: Gas Last Admin: 05/10/23 16:20 Dose: 160 mg Documented By: DANIELONOPerlita Sodium Chloride (0.9 % Sodium Chloride Flush 3 Ml Syringe) 3 ml IVFLUSH QSHIFT [facility] Last Admin: 05/17/23 08:49 Dose: Not Given Documented By: FAY Non-Admin Reason: IV Running Tramadol HCl (Tramadol Hcl 50 Mg Tablet) 100 mg PO Q4H PRN PRN Reason: Pain, Severe (Pain Scale 7-10) Tramadol HCl (Tramadol Hcl 50 Mg Tablet) 50 mg PO Q4H PRN PRN Reason: Pain, Moderate(Pain Scale 4-6) Trazodone HCl (Trazodone Hcl 100 Mg Tablet) 200 mg PO BEDTIME [facility] Last Admin: 05/16/23 20:11 Dose: 200 mg Documented By: JOSUE Labs 05/17/23 05:55 05/17/23 05:55 Labs: Laboratory Results - last 24 hr 05/17/23 05:55 MCV 88.4 MCH 28.5 MCHC 32.3 RDW 16.5 H Plt Count 251 MPV 8.6 L Absolute Nucleated RBC 0.000 Nucleated RBC % (auto) 0.0 aPTT Heparin Protocol 68.0 Anion Gap 9 L Estim Creat Clear Calc 130.0 Estimated GFR > 60 Random Glucose 92 Calcium 7.5 L Magnesium 1.5 L Assessment and Plan (1) NSTEMI (non-ST elevated myocardial infarction): Status: Acute Plan [id number] 63yo F with HTN, Barretts esophagus, GERD admitted to Gen Surg with sigmoid diverticulitis with colovesical fistual and abscess POD6 ex-lap/enterolysis/sigmoid resection/colostomy/Tye's pouch/enterectomy/pelvic abscess drainage developed PVCs and found to have NSTEMI NSTEMI - TTE with LVEF mildly reduced to 40-45% with WMAs - question of CAD vs stress cardiomyopathy - no chest pain - continue IV heparin x48h, ASA, metoprolol, statin, lisinopril - once stable from postoperative perspective, to transfer to [facility] [place] cardiac [place]; discussed with Dr Sinclair and pt accepted for transfer today hypoMg - replete IV, recheck in AM hypoK - repleted hypoCa, not - corrects to 8.5 accounting for hypoalbuminemia edema - give 2 doses furosemide HTN - continue metoprolol; held lisinopril, amlodipine, and HCTZ for soft BP postoperative nausea - will give standing ondansetron and prn metoclopramide diverticulitis, complicated with perforation - continue levofloxacin + metronidazole VTE ppx - on therapeutic UFH dispo - eventual cardiac cath then likely STR In my clinical judgment, the patient requires continued inpatient hospitalization for the following reasons: IV heparin, postop care Time Spent With Patient Time: Total time managing care of this patient today _45___ minutes. Quality Stroke Does the patient have a stroke diagnosis?: No VTE Prior VTE?: No VTE Risk Level:: Medical - moderate - high VTE Device Contraindication: N/A - Device Ordered VTE Drug Contraindication: Treatment Not Tolerated
[2023-05-17] MEDS: ondansetron HCL 4 MG/2 ML VIAL 8 MG IVPUSH (12:16)
--- NOTE | 2023-05-17 13:03 | P.DS_ITS ---
DS: Providers Provider Date of Service: 05/17/23 Date of admission: 05/04/23 13:57 Primary care physician: Deion Asencio MD Attending physician on admission: Jack Quan Consults: 05/14/23 14:33 Consult to Cardiology Stat Consulting Provider: [facility] Reason for consultation: electrolytes imbalance, runs of PVCs 05/15/23 19:28 Consult to Hospitalist Routine Comment: Consulting Provider: Hospitalist Reason For Exam: elevated troponin level, SOB, post colectomy 05/16/23 08:55 Consult to Hospitalist Stat Comment: Consulting Provider: Hospitalist Reason For Exam: Question of SC. s/p surgery for colovesicular fist Attending physician on discharge: Jack Quan DS: Transfer Hospital Acceptance Reason for Transfer: NSTEMI, cardiac catheterization Name of Facility: [facility] DS: Diagnosis Discharge Diagnosis (1) NSTEMI (non-ST elevated myocardial infarction): Status: Acute (2) S/P colostomy: Status: Acute (3) Colovesical fistula: Status: Acute (4) Perforated diverticulum: Status: Acute DS: Summary Hospital Course Hospital Course: HPI AT ADMISSION: Kia Phelps is a 63 year old female with PMH of GERD and barretts esophagus, hypertension, hyperlipidemia who presents with severe lower abdominal pain. Patient reports this has been going on for the last month. She was seen in the ED earlier this month and was diagnosed with constipation and treated with stool softeners. She had a follow up with GI on 04/26/23 and diagnosed with IBS with constipation. She reports the pain has not improved at all since she was seen and progressively worsened. The pain became so severe she presented to the ED. She reports the pain is mostly on the lower left abdomen and pelvic area. The pain has been associated with anorexia and she endorses a 20 lbs weight loss over the past month. She denies nausea, vomiting, fevers or chills. She reports she has only had very small bowel movements over the past few weeks. She has a history of sigmoid diverticulitis with multiple episodes per year for the past 10 years and have been treated with PO antibiotics. Last episode was in December of this year. Last colonoscopy was in January 2019 and showed diverticulosis, two tubular adenomas. Work up in the ED included CBC, BMP, LFTs which was significant for WBC count of 21.2 and H/H of 10.9/33.2. CT scan abd/pelvis showed marked wall thickening of the sigmoid colon with pericolonic stranding with an associated fluid collection in the midline pelvis. There was focal wall thickening at the bladder dome in direct contiguity with a collection containing gas and fluid measuring 3.6 x 3.9 x 3.7 cm. UA positive for nitrites and WBC. She continues to report severe lower abdominal pain. She denies dysuria, fecaluria, pneumaturia. HOSPITAL COURSE: The patient was admitted to the surgical service for further treatment of the diverticular abscess, possible colovesical fistula. IR drainage was requested. She was started on IV flagyl and levaquin, IVF with PRN analgesics as needed with further plan dependent on clinical course. CT guided aspiration of 2 pelvic fluid collections was performed on 05/05/23. No grossly purulent fluid identified. The patient improved minimally over the next few days. It was then discussed that she would require laparotomy, sigmoid resection with end colostomy. She was vehemently against the colostomy. It was therefore attempted to do a gentle bowel preparation prior to the surgery in at [facility] for primary anastomosis. On 05/11/23, an exploratory laparotomy, extensive enterolysis, sigmoid resection, takedown splenic flexure, and colostomy, Leonard's pouch, enterectomy with primary anastomosis of distal small bowel, drainage pelvic abscess was performed by Dr. Quan without immediate complication. Retrograde injection of methylene blue contrast through Perez catheter and ureteral stent per Dr. Kenneth Tuttle was performed intraoperatively. She tolerated the procedure well and was extubated uneventfully however was persistently hypotensive in recovery and therefore was transferred to the ICU for vasopressors and observation. This improved with aggressive IV hydration and pressors which she was gradually weaned off of. She was transferred to the telemetry floor where she was noted to have PVCs and very short run of NSVT at 6 beats. Cardiology was therefore consulted and the hospitalist service. Hypokalemia and hypomagnesemia were corrected. Echocardiogram with LVEF of 40-45% with wall motion abnormalities noted. High sensitivity troponin level 815 and 401. She was asymptomatic from cardiac standpoint. She was treated for an NSTEMI and started on IV heparin on 05/15 and aspirin with plan for transfer to [facility] for cardiac catheterization. She had an overall uneventful surgical recovery course. Her diet was slowly advanced to clear liquids and then solids once she began to have colostomy output. Her abdominal pain slowly improved. She was tolerating solid food with mild nausea. She had good colostomy output. Her abdomen was benign with clean incision with wound openings with scant serous drainage. Her MIKI drain was removed. She was OOB and ambulated. She would likely benefit from transfer to [facility] once she is ready for strengthening. Her WBC count has significantly improved and almost normalized. She is discharged on another 3 days of PO ciprofloxacin 500mg BID and flagyl 500 mg BID. Her perez is to remain in place for another 3 weeks due to the colovesical fistula with urology follow up outpatient. Status at Discharge Functional status at discharge: uses cane/walker Overall status at discharge: patient is not back to baseline Time Spent with Patient Time attestation: Total time managing care of this patient today ____ minutes. Discharge coordination time: Greater than 30 minutes Quality: Safe Use of Opioids Does Pt have an Active Cancer Diagnosis on the Problem List?: No Quality: Stroke Does the patient have a stroke diagnosis?: No Physical Exam Vital Signs: Vital Signs: Last Vital Signs Temp 99.1 F 05/17/23 11:02 Pulse 82 05/17/23 11:02 Resp 20 05/17/23 11:02 BP 100/60 05/17/23 11:02 Pulse Ox 93 05/17/23 11:02 O2 Del Method Room Air 05/17/23 11:02 O2 Flow Rate 2 05/17/23 07:11 Oxygen Flow Rate 2 05/17/23 03:23 BMI result Body Mass Index 35.6 Const: General: comfortable, no acute distress and alert Orientation/consciousness: patient oriented x3 Neck: Other: right IJ triple lumen Resp: Effort & Inspection: normal respiratory effort Cardio: Rate: regular rate Rhythm: regular rhythm GI: Inspection: No distended and Yes incision (clean, wound openings with serous drainage) Palpation (GI): Soft to palpation, Tenderness to palpation present (GI) (incisional, mild), no guarding and not rigid Percussion: Yes normal to percussion Skin: General skin exam: no rashes or lesions noted Neuro: General: patient oriented x3 and moves all extremities Extrem: Other: b/l upper and lower extremity edema DS: Data Data Completed and Pending Completed studies during hospitalization [Text1]: 05/11/23 14:37 Surgical [PTH] Routine Pending studies at discharge: 05/11/23 14:44 Surgical [PTH] Routine A. Colon, sigmoid, segmental resection: Diverticulitis with abscess formation, adherent to segment of bowel wall with acute serositis and adhesions. B. Small bowel, distal, segmental resection: Segment of small bowel with acute fibrinous and organizing serositis Labs on day of discharge: Laboratory Results - last 24 hr 05/17/23 05:55 WBC 13.5 H RBC 2.84 L Hgb 8.1 L Hct 25.1 L MCV 88.4 MCH 28.5 MCHC 32.3 RDW 16.5 H Plt Count 251 MPV 8.6 L Absolute Nucleated RBC 0.000 Nucleated RBC % (auto) 0.0 aPTT Heparin Protocol 68.0 Sodium 140 Potassium 3.3 Chloride 104 Carbon Dioxide 30 H Anion Gap 9 L BUN 3 L Creatinine 0.46 L Estim Creat Clear Calc 130.0 Estimated GFR > 60 Random Glucose 92 Calcium 7.5 L Magnesium 1.5 L Discharge Plan Discharge Anticipated Discharge Date/Time: 05/17/23 15:21 Patient Disposition: er [facility] Discharge Diagnosis: colovesical fistula, s/p leonard procedure; NSTEMI Referrals: Haritha Fisher MD [Physician] - 2 Weeks Deion Asencio MD [Primary Care Provider] - 1 Week Jack Quan MD [Physician] - 1 Week Discharge Medications: New heparin(porcine) in 0.45% NaCl 25,000 unit/250 mL Parenteral Solution 25,000 unit continuous IV infusion .Q0M Qty: 1 0RF heparin (porcine) 5,000 unit/mL Solution 3,700 unit IVPUSH PROTOCOL BOLUS PRN (Reason: 40 Unit/Kg - Heparin Protocol) Qty: 1 0RF heparin (porcine) 5,000 unit/mL Solution 7,300 unit IVPUSH PROTOCOL BOLUS PRN (Reason: 80 Unit/Kg - Heparin Protocol) Qty: 1 0RF aspirin 81 mg Tablet,Delayed Release (Dr/Ec) 81 mg PO DAILY Qty: 30 0RF tramadol 50 mg Tablet 100 mg PO Q4H PRN (Reason: Pain, Severe (Pain Scale 7-10)) Qty: 0 0RF oxybutynin chloride 5 mg Tablet Extended Release 24hr 10 mg PO DAILY Qty: 30 0RF metronidazole 500 mg tablet 500 mg PO BID Qty: 6 0RF ciprofloxacin HCl [Cipro] 500 mg tablet 500 mg PO BID Qty: 6 0RF Continued multivitamin Tablet 1 tab PO DAILY calcium carbonate 500 mg calcium (1,250 mg) Tablet 500 mg PO DAILY metoprolol succinate 100 mg tablet extended release 24 hr 150 mg PO DAILY trazodone 100 mg tablet 200 mg PO BEDTIME atorvastatin 20 mg tablet 20 mg PO DAILY esomeprazole magnesium [Nexium] 40 mg capsule,delayed release(DR/EC) 40 mg PO DAILY Held hydrochlorothiazide 25 mg tablet 25 mg PO DAILY Hold Instructions: Resume on 06/07/23. per MD amlodipine 5 mg tablet 5 mg PO DAILY Hold Instructions: Resume on 06/07/23. per MD lisinopril 30 mg tablet 30 mg PO DAILY Hold Instructions: Resume on 06/07/23. per MD Discontinued polyethylene glycol 3350 [Miralax] 17 gram/dose powder 17 g PO DAILY Qty: 510 0RF Discharge Orders: Discharge Order (Routine); Ordered 05/17/23 Ordered By: Daphne Dorantes Diet: Advance to usual diet Activity on Discharge: No heavy lifting Stand Alone Forms: Patient Portal Discharge page Activity Restrictions/Additional Instructions: Apply an ice pack for short intervals (20 minutes on, followed by at least 20 minutes off). Wound care: Dry dressing to incision; change daily and PRN. Colostomy: Coloplast 15052, change appliance every 3-4 days and PRN. Ok to shower. No heavy lifting (>10lbs) or strenuous activity. Follow up in office with Dr. Quan in 1 week. ([phone]) Call Your Doctor If: -Your temperature exceeds 101.5? F -You experience excessive pain or swelling -You have an unexpected reaction to medication -You have excessive bleeding -You experience continued vomiting/nausea -Your incision begins to separate -Your incision shows signs of infection such as increased redness, swelling, excessive pain, drainage (light blood or clear fluid is normal) or heat Care Plan Goals: Return to baseline health and resume normal activities following recovery period. Colostomy closure. Wound closure. Health Concerns: Diverticulitis, colovesical fistula NSTEMI Plan of Treatment: s/p exploratory laparotomy, sigmoid resection, end colostomy Transfer to [facility] for cardiac catheterization colostomy care, perez in place Assessment: Stable Discharge Date/Time: 05/17/23 23:31
[2023-05-17] MEDS: Lidocaine 4 % Patch ADH..PATCH 1 PATCH TRANSDERMA (13:34)
--- NOTE | 2023-05-17 13:38 | MHC.CM.PN ---
EMR reviewed and per MD rounds, pt will be medically transferred to [facility] for a higher level of care.
[2023-05-17] MEDS: 0.9 % Sodium Chloride Flush 3 ML SYRINGE IVFLUSH (15:37)
[2023-05-17] MEDS: levoFLOXacin/D5W 500 MG/100 ML PIGGYBACK 80 MG IV (16:37)
--- NOTE | 2023-05-17 17:57 | PC.NURSE ---
Assumed care of patient 12:00 abdominal dsg CDI ostomy output liquid brown stool lung bryan dim throughout, fine crackle to bases Pt stated nausea, scheduled zofran given 13:00, prn reglan given, nausea continued and provider added IV phenergan once. Pt denies chest pain or dizziness. 15:15 perez output has new signs of hematuria, punch red output with medium sized stringy dark red clot in tubing. Md notified, per MD discontinue heparin gtt. Heparin gtt stopped at this time. Plan for patient is transfer to [facility] for cardiac catheterization lab r/t NSTEMI. [facility] [place] open bed at 17:24. RN to RN report given to [facility] nurse 17:50. Ambulance scheduled for 20:00, soonest available time.
== END 2023-05-17 23:31 | disposition short-term general hospital (02) | DRG 230 ==
LOC: HO.ED 13:39 → HO.EDOVER 14:40 → HO.S3 16:15 → HO.ICU 05-11 17:45 → HO.IMC 05-13 12:15
PROVIDERS: Family Medicine; Internal Medicine; Internal Medicine Critical Care Medicine; Physician Assistant; Physician Assistant Medical; Physician Assistant Surgical; Radiology Diagnostic Radiology; Registered Nurse Community Health; Student in an Organized Health Care Education/Training Program; Surgery; Absent Provider Surgery; Admitting Provider Surgery; Emergency Provider Emergency Medicine; PCP Family Medicine; Visit Provider Surgery
PROC: 0W9J3ZZ Drainage of Pelvic Cavity, Percutaneous Approach (ICD-10-PCS; principal; 2023-05-05 12:10)
PROC: 0DB80ZZ Excision of Small Intestine, Open Approach (ICD-10-PCS; CPT 49000; principal; 2023-05-11 11:30)
DX: K57.20 Diverticulitis of large intestine with perforation and abscess without bleeding (principal); I21.4 Non-ST elevation (NSTEMI) myocardial infarction; I47.20 Ventricular tachycardia, unspecified; N32.1 Vesicointestinal fistula; K66.0 Peritoneal adhesions (postprocedural) (postinfection); I95.81 Postprocedural hypotension; E86.1 Hypovolemia; E78.5 Hyperlipidemia, unspecified; N32.89 Other specified disorders of bladder; K21.9 Gastro-esophageal reflux disease without esophagitis; E83.42 Hypomagnesemia; I10 Essential (primary) hypertension; R31.9 Hematuria, unspecified; N39.0 Urinary tract infection, site not specified; E87.6 Hypokalemia; F17.210 Nicotine dependence, cigarettes, uncomplicated; Z71.6 Tobacco abuse counseling; Z79.899 Other long term (current) drug therapy
CPT/HCPCS: 36415; 71045; 74176; 75989; 80048; 80053; 80076; 81001; 82040; 82533; 82803; 82947; 83605; 83735; 84100; 84439; 84443; 84484; 85007; 85014; 85018; 85025; 85027; 85610; 85730; 86850; 86900; 86901; 86923; 87040; 87070; 87073; 87086; 87205; 88307; 93005; 93306; 97162; 99152; 99153; 99285; 99291; C1729; C1758; J0131; J0613; J0692; J1170; J1643; J1650; J1940; J1956; J2060; J2250; J2371; J2405; J2550; J2765; J3010; J3475; P9016; P9047; Q9957; Q9967; Q9968

== ENCOUNTER 2023-05-04 13:57 | Outpatient (BNV) | payer OTHER, SELFPAY | END 2023-05-15 10:02 | PROVIDERS: Absent Provider Surgery; Admitting Provider Surgery; Emergency Provider Emergency Medicine; PCP Family Medicine; Visit Provider Internal Medicine | DX: I34.0 Nonrheumatic mitral (valve) insufficiency (principal) | CPT/HCPCS: 93306 ==

== ENCOUNTER 2023-05-04 13:57 | Outpatient (BNV) | payer OTHER, SELFPAY | END 2023-05-05 13:02 | PROVIDERS: Absent Provider Surgery; Admitting Provider Surgery; Emergency Provider Emergency Medicine; PCP Family Medicine; Visit Provider Radiology Diagnostic Radiology | DX: K57.20 Diverticulitis of large intestine with perforation and abscess without bleeding (principal) | CPT/HCPCS: 75989 ==

== ENCOUNTER → 2023-05-04 13:57 | Outpatient (BNV) | payer OTHER, SELFPAY | PROVIDERS: Absent Provider Surgery; Admitting Provider Surgery; Emergency Provider Emergency Medicine; PCP Family Medicine; Visit Provider Physician Assistant | DX: I21.4 Non-ST elevation (NSTEMI) myocardial infarction (principal) | CPT/HCPCS: 99222; 99232 ==

== ENCOUNTER → 2023-05-04 13:57 | Outpatient (BNV) | payer OTHER, SELFPAY | PROVIDERS: Absent Provider Surgery; Admitting Provider Surgery; Emergency Provider Emergency Medicine; PCP Family Medicine; Visit Provider Internal Medicine | DX: I21.4 Non-ST elevation (NSTEMI) myocardial infarction (principal) | CPT/HCPCS: 99223; 99232; 99233 ==

== ENCOUNTER → 2023-05-04 13:57 | Outpatient (BNV) | payer OTHER, SELFPAY | PROVIDERS: Absent Provider Surgery; Admitting Provider Surgery; Emergency Provider Emergency Medicine; PCP Family Medicine; Visit Provider Physician Assistant Surgical | DX: N32.1 Vesicointestinal fistula (principal); K57.20 Diverticulitis of large intestine with perforation and abscess without bleeding; Z93.3 Colostomy status | CPT/HCPCS: 44139; 44143; 99024; 99222; 99231; 99232; 99233; 99499 ==

== ENCOUNTER → 2023-05-04 13:57 | Outpatient (BNV) | payer OTHER, SELFPAY | PROVIDERS: Absent Provider Surgery; Admitting Provider Surgery; Emergency Provider Emergency Medicine; PCP Family Medicine; Visit Provider Urology | DX: N32.89 Other specified disorders of bladder (principal) | CPT/HCPCS: 52332; 74420; 99222; 99232 ==

== ENCOUNTER 2023-07-17 14:20 | Outpatient (AMB) | payer OTHER, SELFPAY ==
[2023-07-17 14:37] VITALS: BP 125/73; PULSE 101
--- NOTE | 2023-07-17 14:37 | MHC.OFFVIS ---
Intake Vital Signs 07/17/23 14:37 Weight 139 lb BP 125/73 Blood Pressure Location Rt brachial Position Sitting Pulse 101 H Intake Visit Reasons: s/p inpt exp lap, sigmoid resection Intake Note: Patient here for s/p inpt exp lap, sigmoid resection. C/o opened wound that leaks to stoma area and bags have to be changed at least twice a day. Seeing wound clinic on the . 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 Accompanied by: Self / Same As Patient Allergies amoxicillin [Augmentin] Allergy (Unknown, Verified 07/17/23 14:39) GI, Difficulty breathing clavulanic acid [Augmentin] Allergy (Unknown, Verified 07/17/23 14:39) GI, Difficulty breathing codeine [CODEINE] Allergy (Unknown, Verified 07/17/23 14:39) SENSITIVITY erythromycin base [Erythromycin Base] Allergy (Unknown, Verified 07/17/23 14:39) GI, DIFF BREATHING NSAIDS (Non-Steroidal Anti-Inflamma [NSAIDS (NON-STEROIDAL ANTI-INFLAMMA] Allergy (Unknown, Verified 07/17/23 14:39) GI UPSET shellfish derived Allergy (Unknown, Verified 07/17/23 14:39) Sensitivity Sulfa (Sulfonamide Antibiotics) Allergy (Unknown, Verified 07/17/23 14:39) RASH morphine [MORPHINE] Adverse Reaction (Severe, Verified 07/17/23 14:39) NAUSEA aspirin [Aspirin] Adverse Reaction (Mild, Verified 07/17/23 14:39) STOMACH UPSET HPI HPI Comments History of Present Illness Details Patient is several months status post sigmoid resection with end colostomy and Tye's pouch for colovesicular fistula. Patient has been at [facility] in the cardiac unit for approximately two months time because of her significant cardiac issues. She is currently at a rehab facility. She is tolerating her diet. Her ostomy is functioning well. She is having some drainage from her incision which is being addressed by Wound Care. She is slowly but steadily increasing her activity level and undergoing physical therapy. She has lost a significant amount of weight during this interim. Her colo vesicular fistula symptoms have completely resolved. She occasional has output from her rectum which her reassured her is normal. [facility] Medical History Hypertension Barretts esophagus GERD (gastroesophageal reflux disease) Surgical History History of exploratory laparotomy (05/11/23) History of esophagogastroduodenoscopy (EGD) Hx of colonoscopy Family History Father Colon cancer Paternal Aunt Colon cancer Social History Household Members: None Housing: House Do you presently have visiting nurse or other home services: No Alcohol intake: never Patient Tobacco Use Status: Current everyday Tobacco user Tobacco use type: Cigarette Cigarette Packs Per Day: 0.5 Cigarettes Per Day: 10.0 Years Smoked: 30 e-Cigarette/Vaping Use: Never Used Substance Use Type: Marijuana Physical Exam Vital Signs: Last Vital Signs Pulse 101 H 07/17/23 14:37 BP 125/73 07/17/23 14:37 GI Other: Abdomen soft. Superior aspect incision demonstrates a draining tract which is a dressing. No evidence of any purulence. Ostomy is functioning. Assessment & Plan Assessment & Plan (1) Colovesical fistula: Code(s): N32.1 - Vesicointestinal fistula (2) S/P colostomy: Code(s): Z93.3 - Colostomy status (3) NSVT (nonsustained ventricular tachycardia): Code(s): I47.29 - Other ventricular tachycardia (4) PVC (premature ventricular contraction): Code(s): I49.3 - Ventricular premature depolarization (5) NSTEMI (non-ST elevated myocardial infarction): Code(s): I21.4 - Non-ST elevation (NSTEMI) myocardial infarction Plan Patient is to see her head neck surgeon in mid August. Depending on these findings and further interventions will determine if the patient has a reasonable operative risk for colostomy reversal which would be at least six months postprocedure or longer depending on her current convalescence. Meantime, will see the patient approximate six weeks time. Should to be any issues or concerns surgical, she has been instructed to call the office or return for follow-up. Coding Level of Care Code Global (05464) Diagnoses Colovesical fistula N32.1 S/P colostomy Z93.3 NSVT (nonsustained ventricular tachycardia) I47.29 PVC (premature ventricular contraction) I49.3 NSTEMI (non-ST elevated myocardial infarction) I21.4
== END 2023-07-17 15:05 | disposition home or self-care (01) ==
PROVIDERS: PCP Family Medicine; Visit Provider Surgery
DX: N32.1 Vesicointestinal fistula (principal); Z93.3 Colostomy status; I47.29 Other ventricular tachycardia; I49.3 Ventricular premature depolarization; I21.4 Non-ST elevation (NSTEMI) myocardial infarction
CPT/HCPCS: 99024

== ENCOUNTER → 2023-07-17 14:20 | Outpatient (BNVA) | payer OTHER, SELFPAY | PROVIDERS: PCP Family Medicine; Visit Provider Surgery ==

== ENCOUNTER 2023-07-19 11:56 | Outpatient (RCR) | payer OTHER, SELFPAY | END 2023-12-11 11:54 | disposition home or self-care (01) | LOC: HO.WCC 11:56 | PROVIDERS: PCP Family Medicine; Visit Provider Surgery | DX: S31.109D Unspecified open wound of abdominal wall, unspecified quadrant without penetration into peritoneal cavity, subsequent encounter (principal); T81.31XD Disruption of external operation (surgical) wound, not elsewhere classified, subsequent encounter; Z93.3 Colostomy status; Z79.899 Other long term (current) drug therapy | CPT/HCPCS: 11042; 99212; 99213 ==

== ENCOUNTER 2023-09-11 11:12 | Outpatient (AMB) | payer OTHER, SELFPAY ==
[2023-09-11 11:25] VITALS: BP 110/70; BMI 25.1
--- NOTE | 2023-09-11 11:25 | MHC.OFFVIS ---
Intake Vital Signs 09/11/23 11:25 Height 5 ft 2 in Weight 137 lb 2.04 oz BMI 25.1 BP 110/70 Blood Pressure Location Lt brachial Position Sitting Intake Visit Reasons: 1 mth follow up exp lap, sigmoid resection Intake Note: Patient is seen in office for one month follow up visit, post exploratory lap sigmoid resection. 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 Accompanied by: Self / Same As Patient Allergies amoxicillin [Augmentin] Allergy (Unknown, Verified 09/11/23 11:) GI, Difficulty breathing clavulanic acid [Augmentin] Allergy (Unknown, Verified 09/11/23 11:27) GI, Difficulty breathing codeine [CODEINE] Allergy (Unknown, Verified 09/11/23 11:) SENSITIVITY erythromycin base [Erythromycin Base] Allergy (Unknown, Verified 09/11/23 11:) GI, DIFF BREATHING NSAIDS (Non-Steroidal Anti-Inflamma [NSAIDS (NON-STEROIDAL ANTI-INFLAMMA] Allergy (Unknown, Verified 09/11/23 11:) GI UPSET shellfish derived Allergy (Unknown, Verified 09/11/23 11:) Sensitivity Sulfa (Sulfonamide Antibiotics) Allergy (Unknown, Verified 09/11/23 11:27) RASH morphine [MORPHINE] Adverse Reaction (Severe, Verified 09/11/23 11:) NAUSEA aspirin [Aspirin] Adverse Reaction (Mild, Verified 09/11/23 11:) STOMACH UPSET HPI HPI Comments History of Present Illness Details All things considered, patient is doing relatively well. She is tolerating her diet. She is having regular ostomy movements. She has a persistent draining sinus of of the superior aspect of her incision but otherwise the wound has no other issues. Her ostomy appliance is better fitting now with minimal leakage. [facility] Medical History Hypertension Barretts esophagus GERD (gastroesophageal reflux disease) Surgical History History of exploratory laparotomy (05/11/23) History of esophagogastroduodenoscopy (EGD) Hx of colonoscopy Family History Father Colon cancer Paternal Aunt Colon cancer Social History Household Members: None Housing: House Do you presently have visiting nurse or other home services: No Alcohol intake: never Patient Tobacco Use Status: Current everyday Tobacco user Tobacco use type: Cigarette Cigarette Packs Per Day: 0.5 Cigarettes Per Day: 10.0 Years Smoked: 30 e-Cigarette/Vaping Use: Never Used Substance Use Type: Marijuana Physical Exam Vital Signs: Last Vital Signs BP 110/70 09/11/23 11:25 BMI result Body Mass Index 25.1 Chest Other: Chest breath sounds bilaterally, HS 1 in 2 GI Other: abdomen soft, benign. superior aspect of incision was probed with no stitch retrieved. Ostomy functioning. Assessment & Plan Assessment & Plan (1) Status post colostomy, follow-up exam: Code(s): Z09 - Encounter for follow-up examination after completed treatment for conditions other than malignant neoplasm; Z93.3 - Colostomy status Plan Current plan is for the patient the undertake cardiac clearance and arrange for preoperative colonoscopy and then for eventual colostomy reversal/takedown. patient will see me after the above to have been completed. All questions answered. Coding Level of Care Code Est Pt Level 4 (12253) Diagnoses Status post colostomy, follow-up exam Z09; Z93.3
== END 2023-09-11 11:47 | disposition home or self-care (01) ==
PROVIDERS: PCP Family Medicine; Visit Provider Surgery
DX: Z09 Encounter for follow-up examination after completed treatment for conditions other than malignant neoplasm (principal); Z93.3 Colostomy status
CPT/HCPCS: 99214

== ENCOUNTER → 2023-09-11 11:12 | Outpatient (BNVA) | payer OTHER, SELFPAY | PROVIDERS: PCP Family Medicine; Visit Provider Surgery ==

== ENCOUNTER 2023-10-13 14:11 | Outpatient (AMB) | payer OTHER, SELFPAY ==
--- NOTE | 2023-10-13 14:25 | A.OFFVIS_ITS ---
Intake Vital Signs 10/13/23 14:41 Height 5 ft 2 in Weight 136 lb 10.986 oz BMI 25.0 BP 143/77 H Blood Pressure Location Lt brachial Position Sitting Pulse 64 Intake Visit Reasons: Colonoscopy prior to colostomy reversal Intake Note: Patient is seen in office to discuss colonoscopy prior to colostomy reversal. 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 Required: No Accompanied by: Self / Same As Patient Allergies amoxicillin [Augmentin] Allergy (Unknown, Verified 10/13/23 14:28) GI, Difficulty breathing clavulanic acid [Augmentin] Allergy (Unknown, Verified 10/13/23 14:28) GI, Difficulty breathing codeine [CODEINE] Allergy (Unknown, Verified 10/13/23 14:28) SENSITIVITY erythromycin base [Erythromycin Base] Allergy (Unknown, Verified 10/13/23 14:28) GI, DIFF BREATHING NSAIDS (Non-Steroidal Anti-Inflamma [NSAIDS (NON-STEROIDAL ANTI-INFLAMMA] Allergy (Unknown, Verified 10/13/23 14:28) GI UPSET shellfish derived Allergy (Unknown, Verified 10/13/23 14:28) Sensitivity Sulfa (Sulfonamide Antibiotics) Allergy (Unknown, Verified 10/13/23 14:28) RASH morphine [MORPHINE] Adverse Reaction (Severe, Verified 10/13/23 14:28) NAUSEA aspirin [Aspirin] Adverse Reaction (Mild, Verified 10/13/23 14:28) STOMACH UPSET HPI Colonoscopy prior to colostomy reversal HPI Details VISIT WITH DR. HOU 04/26/2023 Plan 1. Constipation. Appears to be combination of IBS-C and symptomatic diverticular disease. Reviewed daily use of miralax to regulate BMs however if that does not counter the global sx such as abd pain and cramping, low threshold to start Amitiza. Hx of polyps and fam hx of CRC. Last colo January 2019 with good prep. - Take miralax 17g mixed in 8oz water ev ayo day - If minimal response in constipation an d abd cramping in 5-7 days, start amitiza 8mcg BID - This is to be continued for at least 8 weeks to monitor response - Avoid smoking. Avoid NSAIDs. - Next colo due 01/2024 - Follow up in 2-3 months 2. GERD/? BE: Irregular Z line in 2006. Biopsies not available but ? BE. Will book for an EGD with WATS-3D exam alongside the colonoscopy next year. Cont Nexium 20 TODAY'S VISIT Patient is here today to discuss going for colonoscopy. Patient was seen in the past by Dr. Hou. In April of 2023 patient reported severe left lower quadrant pain and constipation. On May 04 ED visit for same and patient was found to have perforated bowel. Surgical consult done partial colectomy. Patient end up transferred to [facility] for NSTEMI. Cardiac catheterization show normal coronary arteries. Patient will be undergoing colostomy reveals or with Dr. Quan. Has colonoscopy scheduled for November. Patient denies any issues with anesthesia in the past. No history of sleep apnea. Patient currently is not taking any anticoagulation medication. No NSAIDs. Patient had colonoscopy in the past in 2019 in January. Patient was also diagnosed with Menon's esophagus in the past and she was placed on Nexium. Patient reports that she is taking Nexium daily and her symptoms of acid reflux are suppressed. Patient denies any dyspepsia, dysphagia or odynophagia. [facility] Medical History Hypertension Barretts esophagus GERD (gastroesophageal reflux disease) Surgical History History of exploratory laparotomy (05/11/23) History of esophagogastroduodenoscopy (EGD) Hx of colonoscopy Family History Father Colon cancer Paternal Aunt Colon cancer Social History Household Members: None Housing: House Do you presently have visiting nurse or other home services: No Alcohol intake: never Patient Tobacco Use Status: Current everyday Tobacco user Tobacco use type: Cigarette Cigarette Packs Per Day: 0.5 Cigarettes Per Day: 10.0 Years Smoked: 30 e-Cigarette/Vaping Use: Never Used Substance Use Type: Marijuana Review of Systems Const Denies weight gain and Denies weight loss ENT Reports no additional complaints, Denies dysphagia and Denies odynophagia Card Reports no additional complaints Resp Reports no additional complaints GI Denies abdominal pain, Denies belching, Denies melena, Denies bloating, Denies change in bowel habits, Denies dysphagia, Denies excessive flatus, Denies dyspepsia, Denies heartburn, Denies diarrhea, Denies loose stools, Denies nausea, Denies odynophagia and Denies vomiting Reports no additional complaints Musc Reports no additional complaints Neuro Reports no additional complaints Psych Reports no additional complaints Endo Reports no additional complaints Physical Exam Vital Signs: Last Vital Signs Pulse 64 10/13/23 14:41 BP 143/77 H 10/13/23 14:41 BMI result Body Mass Index 25.0 Const General: healthy appearing, no acute distress and well developed Nutritional Appearance: well nourished Orientation/consciousness: patient oriented x3 Resp Effort & Inspection: normal respiratory effort, able to speak in complete sentences, no tracheal deviation and symmetric chest movement Auscultation: clear to auscultation bilaterally Cardio Rate: regular rate GI Other: Left lumbar colostomy with brown stool. Dressed wound below umbilicus 10 cm from stoma dressed. Patient is going to wound care and is packing her wound few times a day. Inspection: No distended Palpation (GI): Soft to palpation, not firm, nontender and No hepatosplenomegaly present Auscultation: normal bowel sounds General: Yes no CVA tenderness Back/Spine/Pelvis Back: no CVA tenderness Skin General skin exam: elasticity normal, turgor normal and dry skin Neuro General: patient oriented x3 Psych Appearance: grossly normal Mental Status: mental status grossly normal Results Reviewed Results Reviewed: CT SCAN OF ABDOMEN AND PELVIS 05/04/2023 FROM ED VISIT FINDINGS: LUNG BASES: No pleural or pericardial effusion. LIVER, GALLBLADDER, AND BILIARY TREE: The noncontrast liver is nodular. No biliary ductal dilatation is present. The gallbladder is unremarkable with no evidence of radiopaque gallstones, gallbladder wall thickening, or obvious pericholecystic inflammatory changes. PANCREAS: Atrophic. SPLEEN: Not enlarged. ADRENAL GLANDS: No adrenal mass. KIDNEYS AND URETERS: The kidneys are symmetric in size. No hydronephrosis or perinephric stranding. BLADDER: Focal wall thickening at the bladder dome in direct contiguity with a collection containing gas and fluid measuring 3.6 x 3.9 x 3.7 cm on image 67 of series 3. GASTROINTESTINAL TRACT: There is marked wall thickening of the sigmoid colon with pericolonic stranding. There is an associated fluid collection containing gas in the midline pelvis measuring 5.9 x 3.4 x 4.5 cm on image 62 of series 3. There is diverticular disease of the descending and sigmoid colon. No small bowel obstruction. Appendix is within normal limits. ABDOMINAL WALL: No significant hernia is appreciated. LYMPH NODES: No bulky abdominal or pelvic lymphadenopathy. VASCULAR: Normal caliber abdominal aorta. PELVIC VISCERA: Small free fluid in the pelvis. No large adnexal masses are appreciated. OSSEOUS STRUCTURES: No destructive bone lesions. Assessment & Plan Assessment & Plan (1) Status post colostomy, follow-up exam: Code(s): Z09 - Encounter for follow-up examination after completed treatment for conditions other than malignant neoplasm; Z93.3 - Colostomy status (2) Colovesical fistula: Code(s): N32.1 - Vesicointestinal fistula (3) Irritable bowel syndrome with constipation: Code(s): K58.1 - Irritable bowel syndrome with constipation (4) Diverticulosis: Code(s): K57.90 - Diverticulosis of intestine, part unspecified, without perforation or abscess without bleeding Plan Patient will be going for colonoscopy. Making sure that she is moving her bowels well. Patient will start taking Dulcolax tablets 5 days before procedure 2 tablets every evening. She will do split MiraLax prep. Her procedure is not till 2:30 in the afternoon so we will have her do her 2nd half of the prep at 06:00 o'clock in the morning. What to expect before during and after procedure discussed with patient. I will see her after the procedure. Dr. Quan will see patient after to schedule colostomy reversal. Patient is agreeable to this plan and verbalizes understanding of instructions. She was given the opportunity to ask questions and all questions answered. Thank you for allowing me to participate in her care Medications: New polyethylene glycol 3350 (Miralax) As directed by gastroenterology department at [facility] 238 grams PO ONCE 238 grams 0RF Z12.11 - Encounter for screening for malignant neoplasm of colon bisacodyl (Dulcolax (bisacodyl)) take 4 tabs at noon the day before your colonoscopy 20 mg (4 x 5 mg) PO ONCE 1 day 4 tabs 0RF Z12.11 - Encounter for screening for malignant neoplasm of colon bisacodyl (Dulcolax (bisacodyl)) 10 mg (2 x 5 mg) PO BEDTIME 60 tabs 0RF Coding Level of Care Code Est Pt Level 4 (52781) Diagnoses Status post colostomy, follow-up exam Z09; Z93.3 Colovesical fistula N32.1 Irritable bowel syndrome with constipation K58.1 Diverticulosis K57.90 Time Spent (min) 45 Comment 30 minutes spent with patient and additional 15 minutes spent reviewing her records
[2023-10-13 14:41] VITALS: BP 143/77; PULSE 64; BMI 25.0
== END 2023-10-13 15:21 | disposition home or self-care (01) ==
PROVIDERS: PCP Family Medicine; Visit Provider Nurse Practitioner Family
DX: Z09 Encounter for follow-up examination after completed treatment for conditions other than malignant neoplasm (principal); Z93.3 Colostomy status; N32.1 Vesicointestinal fistula; K58.1 Irritable bowel syndrome with constipation; K57.90 Diverticulosis of intestine, part unspecified, without perforation or abscess without bleeding
CPT/HCPCS: 99214

== ENCOUNTER → 2023-10-13 14:11 | Outpatient (BNVA) | payer OTHER, SELFPAY | PROVIDERS: PCP Family Medicine; Visit Provider Nurse Practitioner Family ==

== ENCOUNTER 2023-10-31 13:49 | Outpatient (AMB) | payer OTHER, SELFPAY ==
[2023-10-31 13:56] VITALS: BP 157/72; PULSE 76; BMI 25.4
--- NOTE | 2023-10-31 13:56 | A.OFFVIS_ITS ---
Intake Vital Signs 10/31/23 13:56 Height 5 ft 2 in Weight 139 lb BMI 25.4 BP 157/72 H Blood Pressure Location Rt brachial Position Sitting Pulse 76 Intake Visit Reasons: Re-discuss surgery for colostomy reversal Intake Note: Patient here today to re- discuss surgery for colostomy reversal. Patient was last seen by [facility] on 10-13-23 who recommended patient have colonoscopy before surgery. Colonoscopy scheduled with Dr. Velásquez on 11-29-23. Patient c/o: on and off pain. 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 Accompanied by: Self / Same As Patient Allergies amoxicillin [Augmentin] Allergy (Unknown, Verified 10/31/23 14:01) GI, Difficulty breathing clavulanic acid [Augmentin] Allergy (Unknown, Verified 10/31/23 14:01) GI, Difficulty breathing codeine [CODEINE] Allergy (Unknown, Verified 10/31/23 14:01) SENSITIVITY erythromycin base [Erythromycin Base] Allergy (Unknown, Verified 10/31/23 14:01) GI, DIFF BREATHING NSAIDS (Non-Steroidal Anti-Inflamma [NSAIDS (NON-STEROIDAL ANTI-INFLAMMA] Allergy (Unknown, Verified 10/31/23 14:01) GI UPSET shellfish derived Allergy (Unknown, Verified 10/31/23 14:01) Sensitivity Sulfa (Sulfonamide Antibiotics) Allergy (Unknown, Verified 10/31/23 14:01) RASH morphine [MORPHINE] Adverse Reaction (Severe, Verified 10/31/23 14:01) NAUSEA aspirin [Aspirin] Adverse Reaction (Mild, Verified 10/31/23 14:01) STOMACH UPSET HPI HPI Comments History of Present Illness Details Patient presents here to discuss reversal of her colostomy procedure. She is tentatively scheduled for an the middle of November for her screening pre colostomy reversal colonoscopy. She would like to coordinate the procedure to follow the following day or so she only has to undergo 1 bowel prep. In the meantime, patient has obtained cardiac clearance. She has having no other GI issues or complaints. Patient is very well known to [facility] Medical History Hypertension Barretts esophagus GERD (gastroesophageal reflux disease) Surgical History History of exploratory laparotomy (05/11/23) History of esophagogastroduodenoscopy (EGD) Hx of colonoscopy Family History Father Colon cancer Paternal Aunt Colon cancer Social History Household Members: None Housing: House Do you presently have visiting nurse or other home services: No Alcohol intake: never Patient Tobacco Use Status: Current everyday Tobacco user Tobacco use type: Cigarette Cigarette Packs Per Day: 0.5 Cigarettes Per Day: 10.0 Years Smoked: 30 e-Cigarette/Vaping Use: Never Used Substance Use Type: Marijuana Physical Exam Vital Signs: Last Vital Signs Pulse 76 10/31/23 13:56 BP 157/72 H 10/31/23 13:56 BMI result Body Mass Index 25.4 Chest Other: Chest breath sounds bilaterally, HS 1 in 2 GI Other: Abdomen soft. Midline incision. Small central part of the incision granula ting. Remainder incision clean dry and intact. Ostomy functioning well. Assessment & Plan Assessment & Plan (1) Status post colostomy, follow-up exam: Code(s): Z09 - Encounter for follow-up examination after completed treatment for conditions other than malignant neoplasm; Z93.3 - Colostomy status Plan Risks, benefits, alternatives of a colostomy reversal reviewed with the patient and included but not limited to bleeding, infection, temporary ostomy, anastomotic failure, numbness, pain, scarring, bowel /ureter injury and the patient wishes to proceed. All questions answered. Arrangements were made for this. Provided her screening colonoscopy the day prior is within normal limits and no suspicious lesions, she will have her 1 bowel prep and fleets enemas that day with surgery to proceed the following day. All questions answered. Arrangements were made for this Medications: Discontinued erythromycin Take 2 500mg tablets (1000mg) at 2pm, 3pm and 10pm on the day prior to the surgery. Discontinued Reason: Patient Refused 1,000 mg (2 x 500 mg) PO .3 times 1 day 6 tabs 0RF pre-op prep Z93.3 - Colostomy status Coding Level of Care Code Est Pt Level 5 (86425) Diagnoses Status post colostomy, follow-up exam Z09; Z93.3
== END 2023-10-31 14:17 | disposition home or self-care (01) ==
PROVIDERS: PCP Family Medicine; Visit Provider Surgery
DX: Z93.3 Colostomy status (principal)
CPT/HCPCS: 99214

== ENCOUNTER → 2023-10-31 13:49 | Outpatient (BNVA) | payer OTHER, SELFPAY | PROVIDERS: PCP Family Medicine; Visit Provider Surgery ==

== ENCOUNTER 2023-11-29 09:34 | Day surgery (SDC) | payer OTHER, SELFPAY ==
[2023-11-29 12:12] VITALS: BMI 21.5
[2023-11-29 12:17] VITALS: BP 117/63; PULSE 73; RESP 16; TEMP 36.3; O2SAT 98
--- NOTE | 2023-11-29 12:31 | P.CONAN_ITS ---
ON LICENSE OF [facility] Active Problems Active Problems: All Active Problems (Updated 11/27/23 @ 11:30 by Teresa Hickman RN) Status post colostomy, follow-up exam (Acute) NSTEMI (non-ST elevated myocardial infarction) (Acute) Hypomagnesemia (Acute) Hypokalemia (Acute) NSVT (nonsustained ventricular tachycardia) (Acute) PVC (premature ventricular contraction) (Acute) S/P colostomy (Acute) Colovesical fistula (Acute) Perforated diverticulum (Acute) Irritable bowel syndrome with constipation (Acute) Hiatal hernia (Acute) Diverticulosis (Acute) Past Medical History Medical History Myocardial infarction Hypertension Barretts esophagus GERD (gastroesophageal reflux disease) Family History Family History Father Colon cancer Paternal Aunt Colon cancer Family history of problems with anesthesia: No Surgical History Surgical History History of exploratory laparotomy (05/11/23) History of esophagogastroduodenoscopy (EGD) Hx of colonoscopy History of Problems with Anesthesia: No Social History Social History Household Members: None Housing: House Do you presently have visiting nurse or other home services: No Alcohol intake: never Patient Tobacco Use Status: Never used Tobacco Tobacco use type: Cigarette Cigarette Packs Per Day: 0.5 Cigarettes Per Day: 10.0 Years Smoked: 30 e-Cigarette/Vaping Use: Never Used Use of substances other than those prescribed or required for medical reasons: Yes Substance Use Type: Marijuana Are you DNR?: No Advance Directives: No Advance Directives Information Provided: Yes Meds Allergies Allergy/AdvReac Type Severity Reaction Status Date / Time clams Allergy Severe Stomach Verified 11/29/23 11:48 Upset amoxicillin [Augmentin] Allergy Unknown GI, Verified 11/29/23 11:48 Difficulty breathing clavulanic acid [Augmentin] Allergy Unknown GI, Verified 11/29/23 11:48 Difficulty breathing codeine [CODEINE] Allergy Unknown SENSITIVIT Verified 11/29/23 11:48 Y erythromycin base Allergy Unknown GI, DIFF Verified 11/29/23 11:48 [Erythromycin Base] BREATHING NSAIDS (Non-Steroidal Allergy Unknown GI UPSET Verified 11/29/23 11:48 Anti-Inflamma [NSAIDS (NON-STEROIDAL ANTI-INFLAMMA] Sulfa (Sulfonamide Allergy Unknown RASH Verified 11/29/23 11:48 Antibiotics) morphine [MORPHINE] AdvReac Severe NAUSEA Verified 11/29/23 11:48 aspirin [Aspirin] AdvReac Mild STOMACH Verified 11/29/23 11:48 UPSET Home Medications Medication Instructions Recorded Confirmed Last Taken Type atorvastatin 20 mg tablet 20 mg PO DAILY 03/01/23 11/29/23 05/04/23 History esomeprazole magnesium 40 mg 40 mg PO DAILY 03/01/23 11/29/23 05/04/23 History capsule,delayed release (Nexium) hydrochlorothiazide 25 mg tablet 25 mg PO DAILY 03/01/23 11/29/23 05/04/23 History calcium carbonate 500 mg calcium 500 mg PO DAILY 05/04/23 11/29/23 05/04/23 History (1,250 mg) tablet multivitamin 1 tab PO DAILY 05/04/23 11/29/23 05/04/23 History carvedilol 6.25 mg tablet 6.25 mg PO BID 10/13/23 11/29/23 Unknown History losartan 25 mg tablet 25 mg PO DAILY 10/13/23 11/29/23 Unknown History mirtazapine 7.5 mg tablet 15 mg PO BEDTIME 10/13/23 11/29/23 Unknown History potassium chloride 10 mEq meq PO BID 10/13/23 Unknown History capsule,extended release Exam Height,Weight and Vital Signs: Height 5 ft 7 in Weight 62.142 kg Last Vital Signs Temp 97.3 F 11/29/23 12:17 Pulse 73 11/29/23 12:17 Resp 16 11/29/23 12:17 BP 117/63 11/29/23 12:17 Pulse Ox 98 11/29/23 12:17 O2 Del Method Room Air 11/29/23 12:17 Airway Mallampati Class: II TM Dist: <=3cm Neck ROM: Full Loose/Missing/Broken Teeth: No Heart: rrr Lungs: cta Assessment and Plan Final Anesthetic Review Family History of Problems with Anesthesia: No History of Problems with Anesthesia: No NPO: Yes ASA Class: III Final Preanesthetic Review: No Changes in Pt Med Stat, Meds/Allgs Chart Rev iewed, Consent Obtained/Reviewed and Anes Risks/Benef Reviewed Patient Risk: Intermediate Procedure Risk: Intermediate Anesthetic Plan Anesthetic Plan: MAC: Disposition: Standard PACU
--- NOTE | 2023-11-29 13:05 | P.HPSUR_ITS ---
Pre-Procedural Eval Section A - 24 Hr Update-Section A only Date of Service: 11/29/23 Section B - Complete if H&P > 30 days Chief Complaint: Diverticulosis of intestine,IBS,perez's esophagu Relevant Family History (Specify if Yes): Yes Relevant Social History: None Present Medications: see Short Stay Collaborative assessment Medical History: Significant History (Myocardial infarction Hypertension Bar retts esophagus GERD (gastroesophageal reflux disease)) History of Previous Operations: Relevant previous surgery/procedure and date(s) (History of exploratory laparotomy (05/11/23) History of esophagogastroduodenoscopy (EGD) Hx of colonoscopy) Allergies: Allergies Allergy/AdvReac Type Severity Reaction Status Date / Time clams Allergy Severe Stomach Verified 11/29/23 11:48 Upset amoxicillin [Augmentin] Allergy Unknown GI, Verified 11/29/23 11:48 Difficulty breathing clavulanic acid [Augmentin] Allergy Unknown GI, Verified 11/29/23 11:48 Difficulty breathing codeine [CODEINE] Allergy Unknown SENSITIVIT Verified 11/29/23 11:48 Y erythromycin base Allergy Unknown GI, DIFF Verified 11/29/23 11:48 [Erythromycin Base] BREATHING NSAIDS (Non-Steroidal Allergy Unknown GI UPSET Verified 11/29/23 11:48 Anti-Inflamma [NSAIDS (NON-STEROIDAL ANTI-INFLAMMA] Sulfa (Sulfonamide Allergy Unknown RASH Verified 11/29/23 11:48 Antibiotics) morphine [MORPHINE] AdvReac Severe NAUSEA Verified 11/29/23 11:48 aspirin [Aspirin] AdvReac Mild STOMACH Verified 11/29/23 11:48 UPSET Review of Systems Sugical H&P ROS: Negative: Constitution, Cardiovascular, Respiratory, Neurologic al, Psychiatric, Hem-Onc, Allergic/Immunologic, Gastrointestinal, Genitourinary, Musculoskeletal, Integumentary, Endocrine and Eyes/Ears/Nose/Throat Exam Surgical H&P Exam: Normal: HEENT, Normal: Heart, Normal: Lungs, Normal: Extremities, Normal: Abdomen, Normal: Skin and Normal: Neurological Plan Diagnosis/Plan: Unchanged I have reviewed the history and physical and performed a pertinent physical examination on my patient. No changes have occurred unless specified. Time Spent With Patient Time: Total time managing care of this patient today ____ minutes.
--- NOTE | 2023-11-29 13:30 | P.OP_ITS ---
Operative Note Operative Note Date of Service: 11/29/23 Narrative: Operative Information Procedure Description: EGD, Colonoscopy Indication: GERD, possible hx of barretts, hx of polyps Anesthesia: MAC FLEXIBLE TRANSORAL UPPER GASTROINTESTINAL ENDOSCOPY AND COLONOSCOPY PROCEDURE NOTE UPPER ENDOSCOPY Consent: Indications for the procedure and potential complications of bleeding, perforation, reaction to medications and missed diagnosis were discussed with the patient and informed consent was obtained. Instrument: Olympus GIF H 190 J mid size upper endoscope Monitoring: Vital signs and clinical assessment, continuous EKG monitoring, Pulse oximetry, Carbon Dioxide monitoring and blood pressure monitoring were done throughout the procedure. Procedure: The patient was placed in the left lateral decubitis position and pre-procedure medications were administered and a bite block was placed. The endoscope was inserted into the mouth and advanced under direct vision to the third part of duodenum. A careful inspection was made as the upper endoscope was withdrawn including a retroflexed examination of the proximal stomach; Findings and interventions are described below. Findings: Larynx:normal Esophagus: GE junction at 35 cm, diaphragm hiatus at 37 cm, consistent with 2 cm sliding hiatal hernia, non obstructive schatzki ring noted, brushings taken for WATS and also bx from Z line Stomach: Normal mucosa. Grade 2 flap valve on retroflexed examination of the cardia. Duodenum: Normal bulb and descending duodenum, Intervention: Biopsies as noted above, brushings COLONOSCOPY Instrument: Olympus variable stiffness pediatric scope 190L Colonoscopy Monitoring: Vital signs and clinical assessment, continuous EKG monitoring, Pulse oximetry, Carbon Dioxide monitoring and blood pressure monitoring were done throughout the procedure. Colon withdrawal time was 8 minutes. Procedure: The patient was placed in the left lateral decubitis position and pre-procedure medications were administered. The video colonoscope was inserted into the stoma and advanced through the colon to the cecum/TI. The colonoscope was slowly withdrawn in a retrograde panoramic fashion and the colon mucosa was carefully examined Findings and interventions are described below. Procedure Difficulty:moderate Findings: Terminal Ileum-normal Cecum:normal Ascending Colon: 5-6 mm sessile polyp removed with cold forceps Transverse Colon -normal Descending Colon:normal Sigmoid Colon: few diverticula seen Rectum stump: Anorectum - normal Colon preparation: Mcclelland Bowel Preparation Scale Right colon; 2 Transverse colon: 2 Left colon; 2 (0 = Unprepared colon segment with mucosa not seen due to solid stool that cannot be cleared. 1 = Portion of mucosa of the colon segment seen, but other areas of the colon segment not well seen due to staining, residual stool and/or opaque liquid. 2 = Minor amount of residual staining, small fragments of stool and/or opaque liquid, but mucosa of colon segment seen well. 3 = Entire mucosa of colon segment seen well with no residual staining, small fragments of stool or opaque liquid) Impression and Post Procedure Diagnosis: Endoscopy Findings: schatzki ring hiatal hernia irregular Z line Colonoscopy Findings: diverticulosis colon polyp Plan: Await Pathology results Repeat Colonoscopy in 5 years due to polyp and prior history or earlier if clinically indicated High fiber diet leaflet avoid straining at stool, epsom salts and sitz bath, anusol supps or cream GERD precautions Above findings were reviewed with the patient and relevant handouts were provided if indicated.
[2023-11-29 14:01] VITALS: BP 100/48; PULSE 74; RESP 14; TEMP 36.4; O2SAT 97
[2023-11-29 14:16] VITALS: BP 109/52; PULSE 72; RESP 15; O2SAT 98
[2023-11-29 14:31] VITALS: BP 124/55; PULSE 76; RESP 15; TEMP 36.4; O2SAT 98
--- NOTE | 2023-11-29 15:16 | PC.NURSE ---
Patient brought to IR for midline placement. IV left inserted. IR MECCA Adkins states she will removed following procedure. Instructed patient is to not return to PACU and will be discharged from IR
== END 2023-11-29 15:19 | disposition home or self-care (01) ==
PROVIDERS: PCP Nurse Practitioner Family; Visit Provider Internal Medicine Gastroenterology
PROC: (CPT 44389; principal; 2023-11-29 14:40)
DX: Z12.11 Encounter for screening for malignant neoplasm of colon (principal); Z86.010 Personal history of colon polyps; K63.5 Polyp of colon; K57.30 Diverticulosis of large intestine without perforation or abscess without bleeding; K58.1 Irritable bowel syndrome with constipation; K21.9 Gastro-esophageal reflux disease without esophagitis; K22.70 Barrett's esophagus without dysplasia; K22.2 Esophageal obstruction; K22.89 Other specified disease of esophagus; K44.9 Diaphragmatic hernia without obstruction or gangrene; I10 Essential (primary) hypertension; I25.2 Old myocardial infarction; Z90.49 Acquired absence of other specified parts of digestive tract; Z88.0 Allergy status to penicillin; Z88.1 Allergy status to other antibiotic agents; Z88.2 Allergy status to sulfonamides; Z88.5 Allergy status to narcotic agent
CPT/HCPCS: 44389; 43239; 88305; 88313; J2371; J2704

== ENCOUNTER → 2023-11-29 09:34 | Outpatient (BNV) | payer OTHER, SELFPAY | PROVIDERS: PCP Nurse Practitioner Family; Visit Provider Internal Medicine Gastroenterology | DX: K21.9 Gastro-esophageal reflux disease without esophagitis (principal); K22.2 Esophageal obstruction; Z12.11 Encounter for screening for malignant neoplasm of colon; Z86.010 Personal history of colon polyps; K63.5 Polyp of colon; K57.30 Diverticulosis of large intestine without perforation or abscess without bleeding | CPT/HCPCS: 43239; 45380 ==

== ENCOUNTER → 2023-11-30 09:50 | Outpatient (BNV) | payer OTHER, SELFPAY | PROVIDERS: Admitting Provider Surgery; PCP Nurse Practitioner Family; Visit Provider Internal Medicine Cardiovascular Disease | DX: E87.5 Hyperkalemia (principal) | CPT/HCPCS: 93010 ==

== ENCOUNTER 2023-11-30 10:06 | Inpatient (IN) | payer OTHER, SELFPAY ==
[2023-11-27 11:33] VITALS: BMI 24.9
--- NOTE | 2023-11-29 10:22 | P.CONAN_ITS ---
HPI - Anesthesia Eval Consult details Narrative: 63yo F for Exploratory Laparotomy ostomy reversal procto sigmoidoscopy Difficult IV start. To have midline placed 11/29/23 No PAT s/p EGD, Rheems 11/29/23 - s/p ex lap with ostomy 05/2023 with GA-ETT 7 Cardiac cleared 10/2023 NSTEMI, Takatsubo (in setting of acute diverticulitis) - neg cardiac cath, EF recovered per 10/2023 office visit (EKG and ECHO requested) [facility] Active Problems Active Problems: All Active Problems (Updated 11/27/23 @ 11:30 by Teresa Hickman RN) Status post colostomy, follow-up exam (Acute) NSTEMI (non-ST elevated myocardial infarction) (Acute) Hypomagnesemia (Acute) Hypokalemia (Acute) NSVT (nonsustained ventricular tachycardia) (Acute) PVC (premature ventricular contraction) (Acute) S/P colostomy (Acute) Colovesical fistula (Acute) Perforated diverticulum (Acute) Irritable bowel syndrome with constipation (Acute) Hiatal hernia (Acute) Diverticulosis (Acute) Past Medical History Medical History Myocardial infarction Hypertension Barretts esophagus GERD (gastroesophageal reflux disease) Family History Family History Father Colon cancer Paternal Aunt Colon cancer Family history of problems with anesthesia: No Surgical History Surgical History H/O dilation and curettage History of exploratory laparotomy (05/11/23) History of esophagogastroduodenoscopy (EGD) Hx of colonoscopy History of Problems with Anesthesia: No Social History Social History Household Members: None Housing: House Do you presently have visiting nurse or other home services: No Alcohol intake: never Patient Tobacco Use Status: Never used Tobacco Tobacco use type: Cigarette Cigarette Packs Per Day: 0.5 Cigarettes Per Day: 10.0 Years Smoked: 30 e-Cigarette/Vaping Use: Never Used Use of substances other than those prescribed or required for medical reasons: No Substance Use Type: Marijuana Substance Use Frequency: Daily Last Used Substance: Days (ago) Currently Displaying Signs/Symptoms of Drug Intoxication Withdrawal: No Have you been hit, kicked, punched, or otherwise hurt by someone within the past year? If so, by whom?: No Are you DNR?: No Advance Directives: No Advance Directives Information Provided: Yes Do you have thoughts of harming others: None Do you have a plan to hurt others: No Plan Patient : No Meds Allergies Allergy/AdvReac Type Severity Reaction Status Date / Time clams Allergy Severe Stomach Verified 11/30/23 08:29 Upset amoxicillin [Augmentin] Allergy Unknown GI, Verified 11/30/23 08:29 Difficulty breathing clavulanic acid [Augmentin] Allergy Unknown GI, Verified 11/30/23 08:29 Difficulty breathing codeine [CODEINE] Allergy Unknown SENSITIVIT Verified 11/30/23 08:29 Y erythromycin base Allergy Unknown GI, DIFF Verified 11/30/23 08:29 [Erythromycin Base] BREATHING NSAIDS (Non-Steroidal Allergy Unknown GI UPSET Verified 11/30/23 08:29 Anti-Inflamma [NSAIDS (NON-STEROIDAL ANTI-INFLAMMA] Sulfa (Sulfonamide Allergy Unknown RASH Verified 11/30/23 08:29 Antibiotics) morphine [MORPHINE] AdvReac Severe NAUSEA Verified 11/30/23 08:29 aspirin [Aspirin] AdvReac Mild STOMACH Verified 11/30/23 08:29 UPSET Home Medications Medication Instructions Recorded Confirmed Last Taken Type atorvastatin 20 mg tablet 20 mg PO DAILY 03/01/23 11/30/23 11/29/23 History esomeprazole magnesium 40 mg 40 mg PO DAILY 03/01/23 11/30/23 11/16/23 History capsule,delayed release (Nexium) hydrochlorothiazide 25 mg tablet 25 mg PO DAILY 03/01/23 11/30/23 11/27/23 History multivitamin 1 tab PO DAILY 05/04/23 11/30/23 11/09/23 History carvedilol 6.25 mg tablet 6.25 mg PO BID 10/13/23 11/30/23 11/30/23 History losartan 25 mg tablet 25 mg PO DAILY 10/13/23 11/30/23 11/29/23 History potassium chloride 10 mEq 10 meq PO BID 10/13/23 11/30/2324 History capsule,extended release calcium carbonate 600 mg-vitamin 1 tab PO DAILY 11/30/23 11/30/23 Unknown History D3 5 mcg (200 unit) tablet (Calcium 600 + D(3)) lorazepam 1 mg tablet 1 mg PO BEDTIME anxiety 11/30/23 11/30/23 Unknown History mirtazapine 15 mg tablet 15 mg PO BEDTIME 11/30/23 11/30/23 Unknown History Exam Height,Weight and Vital Signs: Height 5 ft 2 in Weight 61.689 kg Narrative Narrative: EKG 10/2023 SR @ 63 ECHO 07/2023 1. LV wall thickness is nml 2. Overall LVEF 55-60% 3. LA size nml 4. C/W 06/2023 EF Assessment and Plan Assessment Anesthesia Assessment: Chart Reviewed Final Anesthetic Review Family History of Problems with Anesthesia: No History of Problems with Anesthesia: No
--- NOTE | 2023-11-29 12:08 | MHC.SHP ---
Pre-Procedural Eval Section A - 24 Hr Update-Section A only Date of Service: 11/29/23 The patient is an INPATIENT: Yes Changes since office visit: No Cold of Flu in the past 2 weeks, No New Medical Problems, No Changes in Medication and No Patient answered all questions Section B - Complete if H&P > 30 days Chief Complaint: Colostomy status,follow-up examination Allergies: Allergies Allergy/AdvReac Type Severity Reaction Status Date / Time clams Allergy Severe Stomach Verified 11/29/23 11:48 Upset amoxicillin [Augmentin] Allergy Unknown GI, Verified 11/29/23 11:48 Difficulty breathing clavulanic acid [Augmentin] Allergy Unknown GI, Verified 11/29/23 11:48 Difficulty breathing codeine [CODEINE] Allergy Unknown SENSITIVIT Verified 11/29/23 11:48 Y erythromycin base Allergy Unknown GI, DIFF Verified 11/29/23 11:48 [Erythromycin Base] BREATHING NSAIDS (Non-Steroidal Allergy Unknown GI UPSET Verified 11/29/23 11:48 Anti-Inflamma [NSAIDS (NON-STEROIDAL ANTI-INFLAMMA] Sulfa (Sulfonamide Allergy Unknown RASH Verified 11/29/23 11:48 Antibiotics) morphine [MORPHINE] AdvReac Severe NAUSEA Verified 11/29/23 11:48 aspirin [Aspirin] AdvReac Mild STOMACH Verified 11/29/23 11:48 UPSET Plan I have reviewed the history and physical and performed a pertinent physical examination on my patient. No changes have occurred unless specified. Time Spent With Patient Time: Total time managing care of this patient today ____ minutes.
--- NOTE | 2023-11-29 16:25 | HO.MIDLINE ---
Midline Insertion MIDLINE INSERTION Diagnosis: difficult IV access Indication: Requested by anesthesia for surgery Pertinent Labs: reviewed Technique: Using sterile technique including cap and mask, glove and drape, the right arm was prepped and draped in the usual sterile fashion of full barrier technique with [facility]. Using ultrasound guidance, right brachial vein access was obtained . 20G x8cm Powerglide ST non PASV midline catheter was positioned. The procedure was performed in 272. Ultrasound was used to document vein patency and for needle entry. A formal ultrasound picture was recorded. Vascular Exterminator Helper Termite has released the line for use and it is currently dressed with a StatLock, Tegaderm, and CHG disc. Verification has been performed for blood return and line patency. Arm Circumference: 26cm Equipment: BARD Powerglide ST midline catheter Catheter Type: 20G x8cm non PASV catheter Lot #: [id number]
[2023-11-30] VITALS (12 sets, daily range): BP systolic 123–138; BP diastolic 62–76; PULSE 70–84; RESP 11–20; TEMP 36–36.7; O2SAT 95–100; BMI 26.4
--- NOTE | 2023-11-30 | ECG_ITS ---
Test Reason : hypokalemia Blood Pressure : / mmHG Vent. Rate : 072 BPM Atrial Rate : 072 BPM P-R Int : 178 ms QRS Dur : 080 ms QT Int : 452 ms P-R-T Axes : 070 035 045 degrees QTc Int : 494 ms Normal sinus rhythm Normal ECG When compared with ECG of 16-MAY-2023 08:30, Fusion complexes are no longer Present Premature ventricular complexes are no longer Present Nonspecific T wave abnormality no longer evident in Inferior leads T wave inversion no longer evident in Lateral leads QT has shortened Referred By: Paloma Saucedo Electronically Signed By:Russell Hummel
--- NOTE | ~2023-11-30 | IR_ITS ---
CLINICAL HISTORY: Nonfunctioning midline. Poor IV access. Patient might require TPN. PROCEDURES: 1. Real-time ultrasound-guided access into the right brachial vein after documentation of selected vessel patency, and permanent imaging storing in the patient record. 2. Placement of a 5 fr 34 cm, dual lumen power PICC CLINICIANS: Chucho Jackson PA-C MEDICATIONS: -Lidocaine 1% 10 mL SQ. -Antibiotics: None. Complications: None. Estimated blood loss: <5 ml Specimens: None. Contrast: None. Fluoroscopy time: 0.4 min Procedure note: The procedure, risks, benefits, and alternatives were carefully explained to the patient and written informed consent was obtained. The patient was placed supine on the fluoroscopy table. A timeout was performed. The right arm was prepped and draped in usual sterile fashion. Using ultrasound and fluoroscopic guidance, venous access was achieved into the brachial vein with a micropuncture set. A peel-away sheath was advanced over the wire. The 0.018 inch wire was advanced into the right atrium. A 5 fr, 34 cm, dual lumen power PICC was advanced over the wire, with its tip at the cavoatrial junction. The wire was removed. The catheter was tested and secured with a StatLock dressing. A permanent ultrasound image and chest fluoroscopic image was saved to PACS. The patient was stable after the procedure and was transferred to the floor. FINDINGS: 1. Patent right brachial vein 2. Placement of a 5 fr 34 cm, dual lumen power PICC IR/IR cvc insert peripheral IMPRESSION: Placement of a 5 fr 34 cm, dual lumen power PICC PLAN: -The catheter may be used immediately. This procedure was performed by Chucho Jackson PA-C, and directly supervised by Dr. Dowell
[2023-11-30 09:07] LABS: Hematocrit 36.6 % (37.0-47.0); Hemoglobin 12.2 g/dl (12.0-16.0); Mean Corpuscular HGB Conc 33.3 g/dl (31.0-35.0); Mean Corpuscular Hemoglobin 28.4 pg (27.0-33.0); Mean Corpuscular Volume 85.1 fL (80.0-98.0); Mean Platelet Volume 9.1 fL (9.4-12.3); Platelet Count 196 X10*3/uL (160-400); Red Cell Distribution Width 14.6 % (11.0-16.0); White Blood Count 8.5 X10*3/uL (4.8-10.8)
[2023-11-30 09:18] LABS: Anion Gap 17 (12-20); Blood Urea Nitrogen 17 mg/dL (9-16); Calcium 9.2 mg/dL (8.4-10.2); Carbon Dioxide 22 mmol/L (22-29); Chloride 101 mmol/L (96-108); Creatinine Clr Calc Pharmacy 80.5; Estimated Glomerular Filt Rate > 60; Glucose Fasting 81 mg/dL (60-99); Potassium 2.7 mmol/L (3.3-5.1); Sodium 137 mmol/L (135-145)
--- NOTE | 2023-11-30 09:59 | HO.ANESPROP2 ---
HPI - Anesthesia Eval Consult details Narrative: for ex lap PMFSH Active Problems Active Problems: All Active Problems (Updated 11/27/23 @ 11:30 by Teresa Hickman RN) Status post colostomy, follow-up exam (Acute) NSTEMI (non-ST elevated myocardial infarction) (Acute) Hypomagnesemia (Acute) Hypokalemia (Acute) NSVT (nonsustained ventricular tachycardia) (Acute) PVC (premature ventricular contraction) (Acute) S/P colostomy (Acute) Colovesical fistula (Acute) Perforated diverticulum (Acute) Irritable bowel syndrome with constipation (Acute) Hiatal hernia (Acute) Diverticulosis (Acute) Past Medical History Medical History Myocardial infarction Hypertension Barretts esophagus GERD (gastroesophageal reflux disease) Family History Family History Father Colon cancer Paternal Aunt Colon cancer Family history of problems with anesthesia: No Surgical History Surgical History H/O dilation and curettage History of exploratory laparotomy (05/11/23) History of esophagogastroduodenoscopy (EGD) Hx of colonoscopy History of Problems with Anesthesia: No Social History Social History Household Members: None Housing: House Do you presently have visiting nurse or other home services: No Alcohol intake: never Patient Tobacco Use Status: Never used Tobacco Tobacco use type: Cigarette Cigarette Packs Per Day: 0.5 Cigarettes Per Day: 10.0 Years Smoked: 30 e-Cigarette/Vaping Use: Never Used Substance Use Type: Marijuana Meds Allergies Allergy/AdvReac Type Severity Reaction Status Date / Time clams Allergy Severe Stomach Verified 11/30/23 08:29 Upset amoxicillin [Augmentin] Allergy Unknown GI, Verified 11/30/23 08:29 Difficulty breathing clavulanic acid [Augmentin] Allergy Unknown GI, Verified 11/30/23 08:29 Difficulty breathing codeine [CODEINE] Allergy Unknown SENSITIVIT Verified 11/30/23 08:29 Y erythromycin base Allergy Unknown GI, DIFF Verified 11/30/23 08:29 [Erythromycin Base] BREATHING NSAIDS (Non-Steroidal Allergy Unknown GI UPSET Verified 11/30/23 08:29 Anti-Inflamma [NSAIDS (NON-STEROIDAL ANTI-INFLAMMA] Sulfa (Sulfonamide Allergy Unknown RASH Verified 11/30/23 08:29 Antibiotics) morphine [MORPHINE] AdvReac Severe NAUSEA Verified 11/30/23 08:29 aspirin [Aspirin] AdvReac Mild STOMACH Verified 11/30/23 08:29 UPSET Active Medications: Current Medications Lactated Ringer's (Lr) 1,000 mls @ 100 mls/hr IVCONT .Q10H ARISTIDES Potassium Chloride/Sodium Chloride (Kcl 40 Meq In 0.9 % Sodium Chl) 40 meq in 1,000 mls @ 250 mls/hr IV .Q4H ARISTIDES Stop: 11/30/23 13:44 Home Medications Medication Instructions Recorded Confirmed Last Taken Type atorvastatin 20 mg tablet 20 mg PO DAILY 03/01/23 11/30/23 11/29/23 History esomeprazole magnesium 40 mg 40 mg PO DAILY 03/01/23 11/30/23 11/16/23 History capsule,delayed release (Nexium) hydrochlorothiazide 25 mg tablet 25 mg PO DAILY 03/01/23 11/30/23 11/27/23 History calcium carbonate 500 mg calcium 500 mg PO DAILY 05/04/23 11/30/23 11/16/23 History (1,250 mg) tablet multivitamin 1 tab PO DAILY 05/04/23 11/30/23 11/09/23 History carvedilol 6.25 mg tablet 6.25 mg PO BID 10/13/23 11/30/23 11/30/23 History losartan 25 mg tablet 25 mg PO DAILY 10/13/23 11/30/23 11/29/23 History mirtazapine 7.5 mg tablet 15 mg PO BEDTIME 10/13/23 11/30/23 11/29/23 History potassium chloride 10 mEq 10 meq PO BID 10/13/23 11/30/23 11/23/23 History capsule,extended release pantoprazole 40 mg tablet,delayed 40 mg PO BID 11/30/23 11/30/23 11/30/23 History release Exam Height,Weight and Vital Signs: Height 5 ft 2 in Weight 61.689 kg Pertinent Lab Results Pertinent Lab Results: Laboratory Tests 11/30/23 11/30/23 08:58 09:01 WBC 8.5 RBC 4.30 D Hgb 12.2 D Hct 36.6 L D MCV 85.1 MCH 28.4 MCHC 33.3 RDW 14.6 Plt Count 196 MPV 9.1 L Absolute Nucleated RBC 0.000 Nucleated RBC % (auto) 0.0 Sodium 137 Potassium 2.7 L* Chloride 101 Carbon Dioxide 22 Anion Gap 17 BUN 17 H Creatinine 0.61 Estim Creat Clear Calc 80.5 Estimated GFR > 60 Fasting Glucose 81 Calcium 9.2 D Blood Type O Positive Antibody Screen NEGATIVE Airway Mallampati Class: II TM Dist: >3cm Neck ROM: Full Heart: rrr Lungs: cta Assessment and Plan Assessment Anesthesia Assessment: Anesthesia Plan Discussed Final Anesthetic Review Family History of Problems with Anesthesia: No History of Problems with Anesthesia: No NPO: Yes ASA Class: III Final Preanesthetic Review: No Changes in Pt Med Stat, Meds/Allgs Chart Reviewed, Consent Obtained/Reviewed and Anes Risks/Benef Reviewed Patient Risk: Intermediate Procedure Risk: Intermediate Anesthetic Plan Anesthetic Plan: GA and Regional Block Disposition: Standard PACU
[2023-11-30] MEDS: Potassium Chloride ER 20 MEQ TAB.ER.PRT 40 MEQ PO (10:34)
--- NOTE | 2023-11-30 10:50 | PC.NURSE ---
Patients in preop. Potassium results critical, 2.7. Per order, stat EKG obtained, NSR. Patient stopped her PO potassium about a week ago due to being in a large capsule. Patient voiced she was nervous the dies/ingredients in the capsule itself could effect her bowel prep for yesterdays colonoscopy. Dr. Saucedo made aware. Verbal order for PO and IV potassium now. PO potassium given in preop as ordered, tolerated well with a small sip of water. Per Dr. Saucedo, IV potassium to be started in the OR by her after anesthesia is started. Patient currently only has one midline IV that was placed yesterday by radiology. Patient has very poor IV access. Patient understands plan. Fidelia Tillman OR nurse aware.
[2023-11-30] MEDS: fentaNYL citrate/PF 100 MCG/2 ML VIAL 25 MCG IVPUSH (13:32)
[2023-11-30] MEDS: ondansetron HCL 4 MG/2 ML VIAL IVPUSH ×2 (13:42→20:19)
[2023-11-30] MEDS: HYDROmorphone HCl 0.5 MG/0.5 ML SYRINGE IVPUSH ×4 (13:45→22:25)
--- NOTE | 2023-11-30 14:18 | P.OP_ITS ---
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 She now presents for reversal. Intraoperative findings demonstrated a moderately corpulent abdomen. Patient caruso significant adhesions of small bowel and omentum to the abdominal wall and pelvis necessitating tedious and prolonged enterolysis to gain access into the abdominal cavity into the pelvis. Patient had uneventful colorectal anastomosis transanally performed. Procedure; patient brought to the operating room, placed on operative table in supine position, after adequate level of general anesthesia was induced, patient was placed in lithotomy position, and under sterile technique a Erwin catheter was placed, and the ostomy sutured closed using running 2-0 silk suture.. Rectal exam was performed, The abdomen and perineum were prepped and draped in usual sterile fashion. Using longitudinal incision encompassing the prior scar from the patient's previous infraumbilical surgery scar, this carried down through skin, subcutaneous tissue, were marked cicatrization was encountered. The fascia was opened and extended along the length of the incision using Bovie. Posterior fascia and peritoneum were opened sharply and extended along the length of the incision. Moderate amount of small bowel and omental adhesions were taken down to allow entry into the abdominal cavity. Once adequately mobilized, packs and retractors were placed to enhance exposure. Next the ostomy was approached using a transverse bi- elliptical incision and carried down through skin, subcutaneous tissue, down to fascia where the ostomy was circumferentially dissected free and the ostomy was able to be placed into the abdominal cavity. Next pelvic dissection was approached where marked adhesions of omentum and small bowel were taken down and packed into the upper abdomen. The the pelvis had significant uterine adhesions to the sacral hollow. Uterus was mobilized and Using a proctosigmoidoscope, the rectal stump was identified. Splenic flexure was taken down and allowed the proximal bowel to extend into the pelvis with no tension and good vascular supply. Next using a pursestring suture on the ostomy site which was then amputated, the proximal bowel was then dilated to 25 [place]. It Would not tolerate larger dilation. CARLOS EDUARDO anvil was placed into the proximal bowel and pursestring sutures secured. Next trans -anal placement of the EEA stapler was performed and exited through the rectal stump. This was connected with an audible click to the proximal bowel and the stapler uneventfully fired with 2 complete donuts demonstrated. Abdominal cavity was filled with saline and left colon was Occluded and rectum underwent insufflation with air which demonstrated no extravasation of air through the anastomosis. Abdominal cavity was again secured irrigated and secured for hemostasis and closed in the following manner; ostomy site has peritoneum closed using running 0 Vicryl suture. The fascia here was closed with running 1. Maxon suture. Midline incision was closed using looped 1. PDS in mass closed fashion. Skin was closed using interrupted inverted dermal 3-0 Vicryl sutures followed by Steri-Strips and sterile dressings. Ostomy site had widely spaced interrupted inverted dermal 3-0 Vicryl sutures followed by skin edwin. Wounds were infiltrated 0.5% Marcaine at completion of the procedure. Sponge, needle, and instrument counts reported correct. Patient tolerated the procedure well and emerged from anesthesia stable condition. EBL minimal
[2023-11-30] MEDS: Lactated Ringers 1,000 ML 100 ML IVCONT (15:00)
[2023-11-30] MEDS: LORazepam 2 MG/ML VIAL 1 MG IVPUSH (15:42)
[2023-11-30] MEDS: Acetaminophen 1,000 MG/100 ML PIGGYBACK 400 MG IV ×2 (17:27→22:29)
--- NOTE | 2023-11-30 17:59 | PHA.MEDREC ---
Pharmacy Consult ? Medication Reconciliation Pharmacy has reviewed the medication reconciliation comlpeted by nursing. patient on calcium + vitd and not calcium alone. Patient takes ativan every night for sleep. Patient is on Nexium, reports she will not taking omeprazole and need pantoprazole instead. Jessy Comer, PharmD
[2023-11-30] MEDS: LORazepam 1 MG TABLET PO (20:14)
[2023-11-30] MEDS: Mirtazapine 15 MG TABLET PO (20:15)
[2023-11-30] MEDS: carvediloL 6.25 MG TABLET PO (20:15)
[2023-11-30] MEDS: Potassium Chloride ER 10 MEQ TABLET.ER PO (20:15)
[2023-12-01] MEDS: HYDROmorphone HCl 0.5 MG/0.5 ML SYRINGE IVPUSH ×2 (00:37→06:19)
[2023-12-01] MEDS: Lactated Ringers 1,000 ML 100 ML IVCONT (00:44)
[2023-12-01 03:14] VITALS: BP 123/60; PULSE 83; RESP 16; TEMP 36.6; O2SAT 97
[2023-12-01] MEDS: Pantoprazole Sodium 40 MG/10 ML VIAL IVPUSH (06:02)
[2023-12-01 06:09] LABS: MANUAL DIFF FLAG NO
[2023-12-01 06:22] LABS: Basophils Percent Auto 0.2 % (0-2); Eosinophils Percent Auto 0.2 % (0-4); Hematocrit 30.7 % (37.0-47.0); Hemoglobin 10.4 g/dl (12.0-16.0); Imm Gran Abs Auto 0.05 X10*3/uL (0.00-0.03); Imm Gran Pct Auto 0.4 % (0.0-0.4); Lymphocytes Absolute Auto 1.8 X10*3/uL (1.2-4.9); Lymphocytes Percent Auto 14.3 % (20-40); Mean Corpuscular HGB Conc 33.9 g/dl (31.0-35.0); Mean Corpuscular Hemoglobin 29.4 pg (27.0-33.0); Mean Corpuscular Volume 86.7 fL (80.0-98.0); Mean Platelet Volume 9.3 fL (9.4-12.3); Monocytes Absolute Auto 1.3 X10*3/uL (0.1-1.2); Monocytes Percent Auto 10.3 % (2-11); Neutrophils Absolute Auto 9.2 x10*3/uL (2.0-8.3); Neutrophils Percent Auto 74.6 % (45-73); Platelet Count 195 X10*3/uL (160-400); Red Blood Count 3.54 X10*6/uL (4.20-5.50); Red Cell Distribution Width 14.4 % (11.0-16.0); White Blood Count 12.4 X10*3/uL (4.8-10.8)
[2023-12-01 06:36] LABS: Anion Gap 12 (12-20); Blood Urea Nitrogen 11 mg/dL (9-16); Calcium 7.8 mg/dL (8.4-10.2); Carbon Dioxide 21 mmol/L (22-29); Chloride 108 mmol/L (96-108); Creatinine Clr Calc Pharmacy 77.6; Estimated Glomerular Filt Rate > 60; Glucose Random 103 mg/dL (60-115); Potassium 4.4 mmol/L (3.3-5.1); Sodium 137 mmol/L (135-145)
[2023-12-01 07:38] VITALS: BP 131/60; PULSE 76; RESP 16; TEMP 36.7; O2SAT 98
--- NOTE | 2023-12-01 07:42 | PC.NURSE ---
Please refer to physician notification for overnight details. This AM, pt left angio stinging with administration of IV Dilaudid. Pt. refusing IV restart (pt. states she wants a central line) or IVF infusing as of 0600. Pt. taking sips of water.
--- NOTE | 2023-12-01 07:49 | HO.POSTANES ---
Post Anesthesia Evaluation Post Anesthesia Evaluation Date of Service: 12/01/23 Vital Signs: Vital Signs Temp Pulse Resp BP Pulse Ox O2 Del Method 12/01/23 07:38 98.0 F 76 16 131/60 98 Room Air 12/01/23 03:14 97.8 F 83 16 123/60 97 Room Air Anesthesia: General Endotracheal-GETA Mental Status: Awake Pain Control: Satisfactory (See note below) Nausea/Vomiting: None Hydration: Adequate Anesthesia-Related Issues: No Anes. Related Issues Comments: Patient is s/p reversal of colostomy. Patient had midline placed prior to surgery which apparently was non-functional at time of induction necessitating placement of 2 peripheral IVs which were used for surgery. Patient was seen on post-op anesthesia rounds this morning and is upset about non-functionin midline. Patient states she has not been able to get her pain medication (dilaudid, which is the only medication that works for her), as peripheral IVs are stinging. She is demanding to see Dr Quan. I explained to patient that Dr Quan is in Surgery but I would relay the message to him and he could have her seen by 1 of his team members if he is not immediately available. In the interim, she could be given the pain medicines by mouth. I also spoke to patient's nurse and was informed that patient had refused some of her pain medications but did agree to receive the dilaudid through the peripheral IV and has been getting that. Dr Quan's team is aware and will be in to see patient as soon as possible. Addendum: Spoke with Dr Quan in OR. Order already in place for patient to receive PICC line. He will see patient as soon as he is able.
[2023-12-01] MEDS: Losartan Potassium 25 MG TABLET PO (08:22)
[2023-12-01] MEDS: Potassium Chloride ER 10 MEQ TABLET.ER PO (08:23)
[2023-12-01] MEDS: carvediloL 6.25 MG TABLET PO ×2 (08:23→20:27)
[2023-12-01] MEDS: ondansetron HCL 4 MG/2 ML VIAL IVPUSH ×2 (08:34→17:36)
--- NOTE | 2023-12-01 10:06 | PM.EVENT ---
Event Note Date of Service: 12/01/23 Event Note: Procedure Note: Right arm dual lumen PICC Right arm midline was dislodged and removed. A new right arm 34 cm dual lumen picc was placed using US and Fluoro. Tip at cavoatrial junction, Ok for use. Chucho MORIN Interventional Radiology Time Spent With Patient Time: Total time managing care of this patient today ____ minutes.
[2023-12-01 10:26] VITALS: BP 116/54; PULSE 77; RESP 16; TEMP 36.2; O2SAT 98
--- NOTE | 2023-12-01 12:00 | PC.NURSE ---
Addendum entered by Nelly Cole RN 12/01/23 18:43: Patient notice more blood after using the bedside commode and was concerned that bleeding was not from rectum but vagina. Dr. Quan notified, at bedside examined patient and recommended to monitor. Patient is in agreement Original Note: Patient was very upset in the morning, stating she needed pain medication adjusted, msg sent to Dr. Quan, patient also asked for the perez catheter to be taken out, perez was d/c at 0845 patient was able to void by 1100. Notice smear of blood after using the bedside commode. Patient was taken to IR for PICC placement, midline that was in left upper arm was removed and double lumen PICC inserted. Dr. Quan at bedside in the morning addressed the pain medication request. Pain adequately controlled at this time.
--- NOTE | 2023-12-01 12:02 | PM.PNGS ---
Subjective Subjective Date of Service: 12/01/23 Interval history: Patient with all kinds of complaints but had uneventful evening. No flatus or stool yet. Tolerating clear liquids. Physical Exam Vital Signs: Vital Signs: Last Vital Signs Temp 97.2 F 12/01/23 10:26 Pulse 77 12/01/23 10:26 Resp 16 12/01/23 10:26 BP 116/54 L 12/01/23 10:26 Pulse Ox 98 12/01/23 10:26 O2 Del Method Room Air 12/01/23 10:26 O2 Flow Rate 2 11/30/23 13:50 BMI result Body Mass Index 26.4 GI: Other: Abdomen is soft. Incision clean dry and intact. Ostomy site with skin edwin clean dry and intact. Objective Data Active Medications Al Hydroxide/Mg Hydroxide (Magnesium Hydrox/Alum Hydrox 30 Ml Oral.Susp) 30 ml PO Q4H PRN PRN Reason: Heartburn/Nausea Atorvastatin Calcium (Atorvastatin Calcium 20 Mg Tablet) 20 mg PO BEDTIME [facility] Carvedilol (Carvedilol 6.25 Mg Tablet) 6.25 mg PO BID [facility]; Protocol Last Admin: 12/01/23 08:23 Dose: 6.25 mg Documented By: SEBASTIAN Heparin Sodium (Porcine) (Heparin Sodium,Porcine 5,000 Unit/Ml Vial) 5,000 unit SUBCUT Q8H [facility] Hydromorphone HCl (Hydromorphone Hcl 4 Mg Tablet) 4 mg PO Q4H PRN PRN Reason: Pain, Moderate(Pain Scale 4-6) Last Admin: 12/01/23 08:29 Dose: 4 mg Documented By: SEBASTINA Hydromorphone HCl (Hydromorphone Hcl 0.5 Mg/0.5 Ml Syringe) 0.5 mg IVPUSH Q2H PRN; Protocol PRN Reason: Pain, Severe (Pain Scale 7-10) Last Admin: 12/01/23 06:19 Dose: 0.5 mg Documented By: PAULO Hydromorphone HCl (Hydromorphone Hcl 2 Mg/Ml Vial) 2 mg IVPUSH Q4H PRN; Protocol PRN Reason: Pain, Severe (Pain Scale 7-10) Lactated Ringer's (Lr) 1,000 mls @ 100 mls/hr IVCONT .Q10H [facility] Last Infusion: 12/01/23 06:26 Dose: 0 mls/hr Documented By: PAULO Acetaminophen (Ofirmev) 1,000 mg in 100 mls @ 400 mls/hr IV Q6H [facility] Last Admin: 12/01/23 06:26 Dose: Not Given Documented By: PAULO Non-Admin Reason: IV stinging-pt. refused IV restart. Lorazepam (Lorazepam 1 Mg Tablet) 1 mg PO BEDTIME [facility] Last Admin: 11/30/23 20:14 Dose: 1 mg Documented By: PAULO Losartan Potassium (Losartan Potassium 25 Mg Tablet) 25 mg PO DAILY [facility]; Protocol Last Admin: 12/01/23 08:22 Dose: 25 mg Documented By: SEBASTIAN Mirtazapine (Mirtazapine 15 Mg Tablet) 15 mg PO BEDTIME [facility] Last Admin: 11/30/23 20:15 Dose: 15 mg Documented By: PAULO Ondansetron HCl (Ondansetron Hcl 4 Mg/2 Ml Vial) 4 mg IVPUSH Q8H PRN PRN Reason: Nausea and Vomiting Last Admin: 12/01/23 08:34 Dose: 4 mg Documented By: SEBASTIAN Pantoprazole Sodium (Pantoprazole Sodium 40 Mg/10 Ml Vial) 40 mg IVPUSH DAILY@0630 [facility] Last Admin: 12/01/23 06:02 Dose: 40 mg Documented By: PAULO Potassium Chloride (Potassium Chloride Er 10 Meq Tablet.Er) 10 meq PO BID [facility] Last Admin: 12/01/23 08:23 Dose: 10 meq Documented By: SEBASTIAN Sodium Chloride (0.9 % Sodium Chloride Flush 3 Ml Syringe) 3 ml IVFLUSH QSHIFT [facility] Last Admin: 12/01/23 09:03 Dose: Not Given Documented By: SEBASTIAN Non-Admin Reason: Patient Refused Labs 12/01/23 06:04 12/01/23 06:04 Labs: Laboratory Results - last 24 hr 12/01/23 06:04 MCV 86.7 MCH 29.4 MCHC 33.9 RDW 14.4 Plt Count 195 MPV 9.3 L Immature Gran % (Auto) 0.4 Neut % (Auto) 74.6 H Lymph % (Auto) 14.3 L [place] % (Auto) 10.3 Eos % (Auto) 0.2 Baso % (Auto) 0.2 Lymph # (Auto) 1.8 [place] # (Auto) 1.3 H Eos # (Auto) 0.0 Baso # (Auto) 0.0 Abs Immat Gran (auto) 0.05 H Absolute Neuts (auto) 9.2 H Absolute Nucleated RBC 0.000 Nucleated RBC % (auto) 0.0 Anion Gap 12 Estim Creat Clear Calc 77.6 Estimated GFR > 60 Random Glucose 103 Calcium 7.8 L D Procedures Date of Service Date of Service: 12/01/23 Progress Note: A&P Assessment and plan (1) Status post colostomy, follow-up exam: Status: Acute Plan Adjustments to analgesia made. Encourage out of bed, incentive spirometry, p.o. liquids. DC skin edwin at ostomy site tomorrow. Time Spent With Patient Time: Total time managing care of this patient today ____ minutes. Quality Stroke Does the patient have a stroke diagnosis?: No VTE Prior VTE?: No VTE Risk Level:: Surgical - high VTE Device Contraindication: N/A - Device Ordered VTE Drug Contraindication: N/A - Med Ordered
--- NOTE | 2023-12-01 12:04 | P.CDIM_ITS ---
PROVIDER RESPONSE TEXT: To clarify, the appropriate diagnosis supported by the clinical indicators: Hypokalemia: Patient is on a diuretic, and status post bowel prep QUERY TEXT: PHYSICIAN'S DOCUMENTATION REQUEST Date of Query: 12/01/2023 10:53 AM EDT Patient Name: Kia Phelps Admit Date: 11/30/2023 Dear Jack Quan, A review of the medical record indicates additional documentation may be needed. Please review below and update the documentation accordingly. Clinical Indicators: LAB FINDINGS: Potassium 2.7 L Fluids Based on the above, is there a diagnosis that correlates with the lab findings above: Hypokalemia resolved, possible, suspected Labs indicate a diagnosis of (please specify) Other (explain) Clinically unable to determine (explain) Thank you, Karen Bourne, CCS, CDIS Use of terms such as suspected, likely, concern for, or probable (associated with a specific diagnosi s that is being evaluated, monitored, or treated as if it exists) are acceptable and can be coded in the inpatient se tting, when documented at the time of discharge. Please use your independent medical judgment in providing your response. THIS QUERY IS PART OF THE PERMANENT MEDICAL RECORD
[2023-12-01] MEDS: Acetaminophen 1,000 MG/100 ML PIGGYBACK 400 MG IV ×3 (12:43→23:33)
[2023-12-01] MEDS: Heparin Sodium,Porcine 5,000 UNIT/ML VIAL 5000 UNIT SUBCUT ×2 (12:43→20:27)
--- NOTE | 2023-12-01 13:32 | MHC.CM.PN ---
PT REPORTS SHE LIVES ALONE AND WORKS [employer] SHE HAS NO SERVICES PT USES A CANE WHEN HER PAIN IS INCREASED, SHE REPORTS BONE ON BONE PAIN IN HER KNEES PT REPORTS SHE HAS A HCP AT [facility], COPY REQUESTED PCP: SERGE CHAVIS DCP: HOME NO SERVICES VS WITH [facility] PT TO ARRANGE TRANSPORT
[2023-12-01 14:54] VITALS: BP 106/57; PULSE 73; RESP 16; TEMP 36.6; O2SAT 98
[2023-12-01] MEDS: HYDROmorphone HCl 2 MG/ML VIAL IVPUSH ×2 (17:35→22:08)
[2023-12-01] MEDS: 0.9 % Sodium Chloride Flush 3 ML SYRINGE IVFLUSH ×2 (17:44→23:59)
--- NOTE | 2023-12-01 19:22 | PC.NURSE ---
Patient refused bed alarm, asked for walker and communicated she will use call beyer for help and not attempt to get out of bed without assistance.
[2023-12-01 20:00] VITALS: BP 124/58; PULSE 80; RESP 18; TEMP 36.7; O2SAT 95
[2023-12-01] MEDS: Mirtazapine 15 MG TABLET PO (20:27)
[2023-12-01] MEDS: Atorvastatin Calcium 20 MG TABLET PO (20:27)
[2023-12-01] MEDS: LORazepam 1 MG TABLET PO (20:28)
--- NOTE | 2023-12-01 22:23 | PC.NURSE ---
Pt refusing IV fluids states she went into fluid overload in the past. IV fluids d'cd.states taking po fluids.
--- NOTE | 2023-12-02 | ECG_ITS ---
Test Reason : nausea not feeling well Blood Pressure : / mmHG Vent. Rate : 087 BPM Atrial Rate : 087 BPM P-R Int : 132 ms QRS Dur : 076 ms QT Int : 510 ms P-R-T Axes : 029 017 030 degrees QTc Int : 613 ms Normal sinus rhythm Right atrial enlargement Nonspecific ST and T wave abnormality Prolonged QT Abnormal ECG When compared with ECG of 30-NOV-2023 09:50, Inverted T waves have replaced nonspecific T wave abnormality in Anterior leads QT has lengthened Referred By: Daphne Dorantes Electronically Signed By:
[2023-12-02 02:58] VITALS: BP 129/72; PULSE 85; RESP 18; TEMP 36.8; O2SAT 95
[2023-12-02] MEDS: HYDROmorphone HCl 2 MG/ML VIAL IVPUSH ×5 (03:10→22:01)
[2023-12-02] MEDS: Heparin Sodium,Porcine 5,000 UNIT/ML VIAL 5000 UNIT SUBCUT ×3 (03:10→18:26)
[2023-12-02] MEDS: Acetaminophen 1,000 MG/100 ML PIGGYBACK 400 MG IV ×4 (05:32→23:39)
[2023-12-02] MEDS: Pantoprazole Sodium 40 MG/10 ML VIAL IVPUSH (05:32)
[2023-12-02 08:00] VITALS: BP 140/67; PULSE 84; RESP 18; TEMP 36.5; O2SAT 93
[2023-12-02] MEDS: 0.9 % Sodium Chloride Flush 3 ML SYRINGE IVFLUSH (09:01)
[2023-12-02] MEDS: carvediloL 6.25 MG TABLET PO ×2 (09:02→21:46)
[2023-12-02] MEDS: Losartan Potassium 25 MG TABLET PO (09:02)
[2023-12-02] MEDS: ondansetron HCL 4 MG/2 ML VIAL IVPUSH ×2 (10:47→18:26)
--- NOTE | 2023-12-02 13:42 | P.PNGS_ITS ---
Subjective Subjective Date of Service: 12/02/23 Interval history: Patient is complaining of some fluid and yellow maybe fecal material draining from her vagina. She says that she is passing gas from the vagina and not really from the rectum. Unfortunately this is suspicious for colovaginal fistula and some of the symptoms started yesterday postoperatively. She denies any fevers or chills but she has concerned a little bit about this. She is also nauseated. She denies any chest pain any shortness a breath. She had been walking around and moving around fine earlier today. Physical Exam 2 Vital Signs: Vital Signs: Last Vital Signs Temp 97.7 F 12/02/23 08:00 Pulse 84 12/02/23 08:00 Resp 18 12/02/23 08:00 BP 140/67 H 12/02/23 08:00 Pulse Ox 93 12/02/23 08:00 O2 Del Method Room Air 12/02/23 08:00 O2 Flow Rate 2 11/30/23 13:50 BMI result Body Mass Index 26.4 Const: General: cooperative, healthy appearing and no acute distress O rientation/consciousness: patient oriented x3 HEENT: Head: Yes normal to inspection Resp: Effort & Inspection: normal respiratory effort Auscultation: clear to auscultation bilaterally Cardio: Rate: regular rate Rhythm: regular rhythm GI: Other: Abdomen is soft nondistended nontender other than just at the incision sites. Midline incision looks good with Steri-Strips intact. The ostomy site weeks look good clean healthy may remove them next day. Patient has some active bowel sounds. Skin: General skin exam: no rashes or lesions noted Neuro: General: patient oriented x3 Cranial nerves: Yes CN's II-XII intact bilaterally Extrem: General: Yes normal to inspection Objective Data Active Medications Al Hydroxide/Mg Hydroxide (Magnesium Hydrox/Alum Hydrox 30 Ml Oral.Susp) 30 ml PO Q4H PRN PRN Reason: Heartburn/Nausea Atorvastatin Calcium (Atorvastatin Calcium 20 Mg Tablet) 20 mg PO BEDTIME [facility] Last Admin: 12/01/23 20:27 Dose: 20 mg Documented By: BRET Carvedilol (Carvedilol 6.25 Mg Tablet) 6.25 mg PO BID [facility]; Protocol Last Admin: 12/02/23 09:02 Dose: 6.25 mg Documented By: SEBASTIAN Heparin Sodium (Porcine) (Heparin Sodium,Porcine 5,000 Unit/Ml Vial) 5,000 unit SUBCUT Q8H [facility] Last Admin: 12/02/23 12:22 Dose: 5,000 unit Documented By: SEBASTIAN Hydromorphone HCl (Hydromorphone Hcl 4 Mg Tablet) 4 mg PO Q4H PRN PRN Reason: Pain, Moderate(Pain Scale 4-6) Last Admin: 12/01/23 08:29 Dose: 4 mg Documented By: SEBASTIAN Hydromorphone HCl (Hydromorphone Hcl 2 Mg/Ml Vial) 2 mg IVPUSH Q4H PRN; Protocol PRN Reason: Pain, Severe (Pain Scale 7-10) Last Admin: 12/02/23 10:47 Dose: 2 mg Documented By: SEBASTIAN Acetaminophen (Ofirmev) 1,000 mg in 100 mls @ 400 mls/hr IV Q6H [facility] Last Admin: 12/02/23 13:18 Dose: 400 mls/hr Documented By: SEBASTIAN Lorazepam (Lorazepam 1 Mg Tablet) 1 mg PO BEDTIME [facility] Last Admin: 12/01/23 20:28 Dose: 1 mg Documented By: BRET Losartan Potassium (Losartan Potassium 25 Mg Tablet) 25 mg PO DAILY [facility]; Protocol Last Admin: 12/02/23 09:02 Dose: 25 mg Documented By: SEBASTIAN Mirtazapine (Mirtazapine 15 Mg Tablet) 15 mg PO BEDTIME [facility] Last Admin: 12/01/23 20:27 Dose: 15 mg Documented By: BRET Ondansetron HCl (Ondansetron Hcl 4 Mg/2 Ml Vial) 4 mg IVPUSH Q8H PRN PRN Reason: Nausea and Vomiting Last Admin: 12/02/23 10:47 Dose: 4 mg Documented By: SEBASTIAN Pantoprazole Sodium (Pantoprazole Sodium 40 Mg/10 Ml Vial) 40 mg IVPUSH DAILY@0630 [facility] Last Admin: 12/02/23 05:32 Dose: 40 mg Documented By: BRET Potassium Chloride (Potassium Chloride Er 10 Meq Tablet.Er) 10 meq PO BID [facility] Last Admin: 12/02/23 09:11 Dose: Not Given Documented By: SEBASTIAN Non-Admin Reason: Patient Refused Sodium Chloride (0.9 % Sodium Chloride Flush 3 Ml Syringe) 3 ml IVFLUSH QSHIFT [facility] Last Admin: 12/02/23 09:01 Dose: 3 ml Documented By: SEBASTIAN Labs 12/02/23 13:47 12/02/23 13:47 Procedures Date of Service Date of Service: 12/02/23 Progress Note: A&P Assessment and plan (1) History of colostomy reversal: Status: Acute Assessment and Plan: 63-year-old female postop day 2 status post colostomy reversal with difficult abdomen multiple adhesions frozen pelvis. Unfortunately in the process of taking down her colostomy and carrying out the EEA staple or anastomosis and edge of the vagina cuff may have been involved and the patient may have a small colovaginal fistula occurring. She has not septic everything is stable. She is aware of this. She is a little disappointed but not upset by this situation but is just concerned about being septic. Her blood work was carried out and her electrolytes are little off with low Mag low potassium and these will be corrected. In the meantime continue with some clear liquid diet as tolerated when she has not nauseated ambulation and will start her on levofloxacin and Flagyl. Electrolyte correction was carried out and we will have the medical team consult on her as well. EKG was carried out just to ensure that nothing bad was going on and all look stable. Patient understands and agrees with the above Time Spent With Patient Time: Total time managing care of this patient today ____ minutes. Quality Stroke Does the patient have a stroke diagnosis?: No VTE Prior VTE?: No VTE Risk Level:: Surgical - high VTE Device Contraindication: N/A - Device Ordered VTE Drug Contraindication: N/A - Med Ordered
[2023-12-02 13:53] LABS: MANUAL DIFF FLAG NO
[2023-12-02 13:57] LABS: Basophils Absolute Auto 0.1 X10*3/uL (0.0-0.2); Basophils Percent Auto 0.6 % (0-2); Eosinophils Absolute Auto 0.2 X10*3/uL (0.0-0.4); Eosinophils Percent Auto 1.4 % (0-4); Hemoglobin 10.3 g/dl (12.0-16.0); Imm Gran Abs Auto 0.04 X10*3/uL (0.00-0.03); Imm Gran Pct Auto 0.4 % (0.0-0.4); Lymphocytes Percent Auto 17.9 % (20-40); Mean Corpuscular HGB Conc 33.2 g/dl (31.0-35.0); Mean Corpuscular Hemoglobin 28.9 pg (27.0-33.0); Mean Corpuscular Volume 87.1 fL (80.0-98.0); Monocytes Percent Auto 9.3 % (2-11); Neutrophils Absolute Auto 7.7 x10*3/uL (2.0-8.3); Neutrophils Percent Auto 70.4 % (45-73); Platelet Count 155 X10*3/uL (160-400); Red Blood Count 3.56 X10*6/uL (4.20-5.50); Red Cell Distribution Width 15.1 % (11.0-16.0); White Blood Count 10.9 X10*3/uL (4.8-10.8)
[2023-12-02 14:18] LABS: Alanine Aminotransferase 94 U/L (0-31); Albumin Level 2.9 g/dL (3.5-5.0); Alkaline Phosphatase 136 U/L (39-117); Anion Gap 11 (12-20); Aspartate Amino Transferase 72 U/L (5-31); Bilirubin Total 0.5 mg/dL (0.0-1.0); Blood Urea Nitrogen 6 mg/dL (9-16); Calcium 8.1 mg/dL (8.4-10.2); Carbon Dioxide 27 mmol/L (22-29); Chloride 102 mmol/L (96-108); Creatinine Clr Calc Pharmacy 95.2; Estimated Glomerular Filt Rate > 60; Glucose Random 128 mg/dL (60-115); Magnesium 1.4 mg/dL (1.6-2.6); Phosphorus 1.9 mg/dL (2.7-4.5); Potassium 3.1 mmol/L (3.3-5.1); Sodium 137 mmol/L (135-145); Total Protein 6.5 g/dL (6.5-8.0); Troponin-I High Sensitivity 3.3 ng/L (<3.5-17.0)
[2023-12-02] MEDS: metroNIDAZOLE/NS 500 MG/100 ML PIGGYBACK 100 MG IV ×2 (14:30→21:47)
[2023-12-02] MEDS: Potassium Chloride ER 20 MEQ TAB.ER.PRT 40 MEQ PO (15:31)
[2023-12-02] MEDS: levoFLOXacin/D5W 500 MG/100 ML PIGGYBACK 100 MG IV (15:31)
[2023-12-02 15:34] VITALS: BP 136/66; PULSE 80; RESP 17; TEMP 36.4; O2SAT 96
--- NOTE | 2023-12-02 15:40 | PM.IMCN ---
History of Present Illness Data of Consult Service Date: 12/02/23 Primary Care Provider: Nessa Hillman NP HPI Reason for consult: electorylte abnormalities, cardiac history 63F PMH gerd with barretts esophagus, diverticulitis requiring colostomy 05/2023 complicated by colovesicular fistula, nonischemic cardiomyopathy with recovered EF, admitted to [facility] for elective reversal of colostomy performed 11/29/23. course now complicated by gas and stool passing through vagina. no fever, chills, sob, or chest pain. on labs noted to have hypokalemia and hypomagnesemia. Review of Systems Review of Systems: Yes all other systems are reviewed and are negative COUNT INCLUDES THE [facility] Medical History Myocardial infarction Hypertension Barretts esophagus GERD (gastroesophageal reflux disease) Family History Father Colon cancer Paternal Aunt Colon cancer Surgical History H/O dilation and curettage History of exploratory laparotomy (05/11/23) History of esophagogastroduodenoscopy (EGD) Hx of colonoscopy Social History Household Members: None Housing: House Do you presently have visiting nurse or other home services: No Alcohol intake: never Patient Tobacco Use Status: Never used Tobacco Tobacco use type: Cigarette Cigarette Packs Per Day: 0.5 Cigarettes Per Day: 10.0 Years Smoked: 30 e-Cigarette/Vaping Use: Never Used Use of substances other than those prescribed or required for medical reasons: No Substance Use Type: Marijuana Substance Use Frequency: Daily Last Used Substance: Days (ago) Currently Displaying Signs/Symptoms of Drug Intoxication Withdrawal: No Have you been hit, kicked, punched, or otherwise hurt by someone within the past year? If so, by whom?: No Are you DNR?: No Advance Directives: No Advance Directives Information Provided: Yes Do you have thoughts of harming others: None Do you have a plan to hurt others: No Plan Patient : No service: No Meds Allergies Allergy/AdvReac Type Severity Reaction Status Date / Time clams Allergy Severe Stomach Verified 11/30/23 08:29 Upset amoxicillin [Augmentin] Allergy Unknown GI, Verified 11/30/23 08:29 Difficulty breathing clavulanic acid [Augmentin] Allergy Unknown GI, Verified 11/30/23 08:29 Difficulty breathing codeine [CODEINE] Allergy Unknown SENSITIVIT Verified 11/30/23 08:29 Y erythromycin base Allergy Unknown GI, DIFF Verified 11/30/23 08:29 [Erythromycin Base] BREATHING NSAIDS (Non-Steroidal Allergy Unknown GI UPSET Verified 11/30/23 08:29 Anti-Inflamma [NSAIDS (NON-STEROIDAL ANTI-INFLAMMA] Sulfa (Sulfonamide Allergy Unknown RASH Verified 11/30/23 08:29 Antibiotics) morphine [MORPHINE] AdvReac Severe NAUSEA Verified 11/30/23 08:29 aspirin [Aspirin] AdvReac Mild STOMACH Verified 11/30/23 08:29 UPSET Active Medications: Current Medications Al Hydroxide/Mg Hydroxide (Magnesium Hydrox/Alum Hydrox 30 Ml Oral.Susp) 30 ml PO Q4H PRN PRN Reason: Heartburn/Nausea Atorvastatin Calcium (Atorvastatin Calcium 20 Mg Tablet) 20 mg PO BEDTIME [facility] Last Admin: 12/01/23 20:27 Dose: 20 mg Carvedilol (Carvedilol 6.25 Mg Tablet) 6.25 mg PO BID [facility]; Protocol Last Admin: 12/02/23 09:02 Dose: 6.25 mg Heparin Sodium (Porcine) (Heparin Sodium,Porcine 5,000 Unit/Ml Vial) 5,000 unit SUBCUT Q8H [facility] Last Admin: 12/02/23 12:22 Dose: 5,000 unit Hydromorphone HCl (Hydromorphone Hcl 4 Mg Tablet) 4 mg PO Q4H PRN PRN Reason: Pain, Moderate(Pain Scale 4-6) Last Admin: 12/01/23 08:29 Dose: 4 mg Hydromorphone HCl (Hydromorphone Hcl 2 Mg/Ml Vial) 2 mg IVPUSH Q4H PRN; Protocol PRN Reason: Pain, Severe (Pain Scale 7-10) Last Admin: 12/02/23 14:39 Dose: 2 mg Acetaminophen (Ofirmev) 1,000 mg in 100 mls @ 400 mls/hr IV Q6H [facility] Last Infusion: 12/02/23 14:10 Dose: Infused Metronidazole (Flagyl) 500 mg in 100 mls @ 100 mls/hr IV Q8H [facility] Last Titration: 12/02/23 15:37 Dose: 0 mls/hr Levofloxacin (Levaquin) 500 mg in 100 mls @ 100 mls/hr IV Q24H [facility] Last Admin: 12/02/23 15:31 Dose: 100 mls/hr Magnesium Sulfate (Magnesium Sulfate/H2o) 2 gm in 50 mls @ 25 mls/hr IV ONCE ONE Stop: 12/02/23 17:16 Lorazepam (Lorazepam 1 Mg Tablet) 1 mg PO BEDTIME [facility] Last Admin: 12/01/23 20:28 Dose: 1 mg Losartan Potassium (Losartan Potassium 25 Mg Tablet) 25 mg PO DAILY [facility]; Protocol Last Admin: 12/02/23 09:02 Dose: 25 mg Magnesium Oxide (Magnesium Oxide 400 Mg Tablet) [facility] Mirtazapine (Mirtazapine 15 Mg Tablet) 15 mg PO BEDTIME [facility] Last Admin: 12/01/23 20:27 Dose: 15 mg Ondansetron HCl (Ondansetron Hcl 4 Mg/2 Ml Vial) 4 mg IVPUSH Q8H PRN PRN Reason: Nausea and Vomiting Last Admin: 12/02/23 10:47 Dose: 4 mg Pantoprazole Sodium (Pantoprazole Sodium 40 Mg/10 Ml Vial) 40 mg IVPUSH DAILY@0630 [facility] Last Admin: 12/02/23 05:32 Dose: 40 mg Potassium Chloride (Potassium Chloride Er 10 Meq Tablet.Er) 10 meq PO BID [facility] Last Admin: 12/02/23 09:11 Dose: Not Given Sodium Chloride (0.9 % Sodium Chloride Flush 3 Ml Syringe) 3 ml IVFLUSH QSHIFT [facility] Last Admin: 12/02/23 15:38 Dose: Not Given Home Medications Medication Instructions Recorded Confirmed Last Taken Type atorvastatin 20 mg tablet 20 mg PO DAILY 03/01/23 11/30/23 11/29/23 History esomeprazole magnesium 40 mg 40 mg PO DAILY 03/01/23 11/30/23 11/16/23 History capsule,delayed release (Nexium) hydrochlorothiazide 25 mg tablet 25 mg PO DAILY 03/01/23 11/30/23 11/27/23 History multivitamin 1 tab PO DAILY 05/04/23 11/30/23 11/09/23 History carvedilol 6.25 mg tablet 6.25 mg PO BID 10/13/23 11/30/23 11/30/23 History losartan 25 mg tablet 25 mg PO DAILY 10/13/23 11/30/23 11/29/23 History potassium chloride 10 mEq 10 meq PO BID 10/13/23 11/30/23 11/23/23 History capsule,extended release calcium carbonate 600 mg-vitamin 1 tab PO DAILY 11/30/23 11/30/23 Unknown History D3 5 mcg (200 unit) tablet (Calcium 600 + D(3)) lorazepam 1 mg tablet 1 mg PO BEDTIME anxiety 11/30/23 11/30/23 Unknown History mirtazapine 15 mg tablet 15 mg PO BEDTIME 11/30/23 11/30/23 Unknown History Physical Exam Vital Signs and Narrative: Vital Signs: Last Vital Signs Temp 97.5 F 12/02/23 15:34 Pulse 80 12/02/23 15:34 Resp 17 12/02/23 15:34 BP 136/66 12/02/23 15:34 Pulse Ox 96 12/02/23 15:34 O2 Del Method Room Air 12/02/23 15:34 O2 Flow Rate 2 11/30/23 13:50 BMI result Body Mass Index 26.4 General: AO X 3, no acute distress Resp: CTA bilateral, no accessory muscles used CVS: S1,S2,RRR Neuro: motor grossly intact, alert Psych: appropriate affect, appropriate insight Results Labs 12/02/23 13:47 12/02/23 13:47 Labs: Laboratory Results - last 24 hr 12/02/23 13:47 MCV 87.1 MCH 28.9 MCHC 33.2 RDW 15.1 Plt Count 155 L MPV 9.0 L Immature Gran % (Auto) 0.4 Neut % (Auto) 70.4 Lymph % (Auto) 17.9 L [place] % (Auto) 9.3 Eos % (Auto) 1.4 Baso % (Auto) 0.6 Lymph # (Auto) 2.0 [place] # (Auto) 1.0 Eos # (Auto) 0.2 Baso # (Auto) 0.1 Abs Immat Gran (auto) 0.04 H Absolute Neuts (auto) 7.7 Absolute Nucleated RBC 0.000 Nucleated RBC % (auto) 0.0 Anion Gap 11 L Estim Creat Clear Calc 95.2 Estimated GFR > 60 Random Glucose 128 H Calcium 8.1 L Phosphorus 1.9 L Magnesium 1.4 L* Total Bilirubin 0.5 AST 72 H ALT 94 H Alkaline Phosphatase 136 H Troponin I High Sens 3.3 D Total Protein 6.5 Albumin 2.9 L Imaging Radiologist's Impressions: Impressions PICC Line Insertion 12/01/23 10:30 IMPRESSION: Placement of a 5 fr 34 cm, dual lumen power PICC PLAN: -The catheter may be used immediately. This procedure was performed by Chucho Jackson PA-C, and directly supervised by Dr. 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
[2023-12-02] MEDS: Magnesium Sulfate/H2O 2 GM/50 ML PIGGYBACK IV (16:32)
[2023-12-02] MEDS: Magnesium Oxide 400 MG TABLET PO (16:32)
[2023-12-02 20:00] VITALS: BP 127/60; PULSE 83; RESP 16; TEMP 36.6; O2SAT 96
[2023-12-02] MEDS: LORazepam 1 MG TABLET PO (21:46)
[2023-12-02] MEDS: Potassium Chloride ER 10 MEQ TABLET.ER PO (21:46)
[2023-12-02] MEDS: Atorvastatin Calcium 20 MG TABLET PO (21:46)
[2023-12-02] MEDS: Mirtazapine 15 MG TABLET PO (21:47)
--- NOTE | 2023-12-03 | PC.NURSE ---
pt states every time shes having stool ,her rectum is dry
[2023-12-03] MEDS: ondansetron HCL 4 MG/2 ML VIAL IVPUSH ×3 (02:30→19:09)
[2023-12-03] MEDS: HYDROmorphone HCl 2 MG/ML VIAL IVPUSH ×6 (02:30→22:32)
[2023-12-03] MEDS: Heparin Sodium,Porcine 5,000 UNIT/ML VIAL 5000 UNIT SUBCUT ×3 (02:31→19:09)
[2023-12-03 03:15] VITALS: BP 135/64; PULSE 88; RESP 16; TEMP 37.1; O2SAT 97
[2023-12-03] MEDS: Pantoprazole Sodium 40 MG/10 ML VIAL IVPUSH (06:11)
[2023-12-03] MEDS: Acetaminophen 1,000 MG/100 ML PIGGYBACK 400 MG IV ×4 (06:15→22:43)
[2023-12-03] MEDS: metroNIDAZOLE/NS 500 MG/100 ML PIGGYBACK 100 MG IV ×3 (06:42→21:08)
[2023-12-03 07:15] LABS: Hematocrit 30.7 % (37.0-47.0); Mean Corpuscular HGB Conc 32.6 g/dl (31.0-35.0); Mean Corpuscular Hemoglobin 28.7 pg (27.0-33.0); Mean Platelet Volume 9.7 fL (9.4-12.3); Platelet Count 165 X10*3/uL (160-400); Red Blood Count 3.49 X10*6/uL (4.20-5.50); Red Cell Distribution Width 15.3 % (11.0-16.0); White Blood Count 10.2 X10*3/uL (4.8-10.8)
[2023-12-03] MEDS: Magnesium Oxide 400 MG TABLET PO ×2 (07:49→16:57)
[2023-12-03] MEDS: Potassium Chloride ER 10 MEQ TABLET.ER PO ×2 (07:49→21:05)
[2023-12-03] MEDS: 0.9 % Sodium Chloride Flush 3 ML SYRINGE IVFLUSH ×2 (07:49→15:06)
[2023-12-03] MEDS: Losartan Potassium 25 MG TABLET PO (07:50)
[2023-12-03] MEDS: carvediloL 6.25 MG TABLET PO ×2 (07:50→21:05)
[2023-12-03 07:51] VITALS: BP 143/63; PULSE 88; RESP 18; TEMP 36.9; O2SAT 98
--- NOTE | 2023-12-03 08:31 | HO.PM.IMPN ---
Subjective Subjective Date of Service: 12/03/23 Interval History: ongoing stool through vagina Physical Exam Vital Signs: Vital Signs: Last Vital Signs Temp 98.4 F 12/03/23 07:51 Pulse 88 12/03/23 07:51 Resp 18 12/03/23 07:51 BP 143/63 H 12/03/23 07:51 Pulse Ox 98 12/03/23 07:51 O2 Del Method Room Air 12/03/23 07:51 O2 Flow Rate 2 11/30/23 13:50 BMI result Body Mass Index 26.4 General: AO X 3, no acute distress Resp: CTA bilateral, no accessory muscles used CVS: S1,S2,RRR Neuro: motor grossly intact, alert Psych: appropriate affect, appropriate insight Objective Data Active Medications Al Hydroxide/Mg Hydroxide (Magnesium Hydrox/Alum Hydrox 30 Ml Oral.Susp) 30 ml PO Q4H PRN PRN Reason: Heartburn/Nausea Atorvastatin Calcium (Atorvastatin Calcium 20 Mg Tablet) 20 mg PO BEDTIME [facility] Last Admin: 12/02/23 21:46 Dose: 20 mg Documented By: AMRIK Carvedilol (Carvedilol 6.25 Mg Tablet) 6.25 mg PO BID [facility]; Protocol Last Admin: 12/03/23 07:50 Dose: 6.25 mg Documented By: SYLVIE Heparin Sodium (Porcine) (Heparin Sodium,Porcine 5,000 Unit/Ml Vial) 5,000 unit SUBCUT Q8H [facility] Last Admin: 12/03/23 02:31 Dose: 5,000 unit Documented By: AMRIK Hydromorphone HCl (Hydromorphone Hcl 4 Mg Tablet) 4 mg PO Q4H PRN PRN Reason: Pain, Moderate(Pain Scale 4-6) Last Admin: 12/01/23 08:29 Dose: 4 mg Documented By: DOBROB Hydromorphone HCl (Hydromorphone Hcl 2 Mg/Ml Vial) 2 mg IVPUSH Q4H PRN; Protocol PRN Reason: Pain, Severe (Pain Scale 7-10) Last Admin: 12/03/23 06:41 Dose: 2 mg Documented By: AMRIK Acetaminophen (Ofirmev) 1,000 mg in 100 mls @ 400 mls/hr IV Q6H [facility] Last Infusion: 12/03/23 06:32 Dose: Infused Documented By: AMRIK Metronidazole (Flagyl) 500 mg in 100 mls @ 100 mls/hr IV Q8H [facility] Last Infusion: 12/03/23 07:53 Dose: Infused Documented By: SYLVIE Levofloxacin (Levaquin) 500 mg in 100 mls @ 100 mls/hr IV Q24H [facility] Last Infusion: 12/02/23 16:32 Dose: Infused Documented By: SYLVIE Lorazepam (Lorazepam 1 Mg Tablet) 1 mg PO BEDTIME [facility] Last Admin: 12/02/23 21:46 Dose: 1 mg Documented By: AMRIK Losartan Potassium (Losartan Potassium 25 Mg Tablet) 25 mg PO DAILY [facility]; Protocol Last Admin: 12/03/23 07:50 Dose: 25 mg Documented By: SYLVIE Magnesium Oxide (Magnesium Oxide 400 Mg Tablet) 400 mg PO BIDPC [facility] Last Admin: 12/03/23 07:49 Dose: 400 mg Documented By: SYLVIE Mirtazapine (Mirtazapine 15 Mg Tablet) 15 mg PO BEDTIME [facility] Last Admin: 12/02/23 21:47 Dose: 15 mg Documented By: AMRIK Ondansetron HCl (Ondansetron Hcl 4 Mg/2 Ml Vial) 4 mg IVPUSH Q8H PRN PRN Reason: Nausea and Vomiting Last Admin: 12/03/23 02:30 Dose: 4 mg Documented By: AMRIK Pantoprazole Sodium (Pantoprazole Sodium 40 Mg/10 Ml Vial) 40 mg IVPUSH DAILY@0630 [facility] Last Admin: 12/03/23 06:11 Dose: 40 mg Documented By: AMRIK Potassium Chloride (Potassium Chloride Er 10 Meq Tablet.Er) 10 meq PO BID [facility] Last Admin: 12/03/23 07:49 Dose: 10 meq Documented By: SYLVIE Sodium Chloride (0.9 % Sodium Chloride Flush 3 Ml Syringe) 3 ml IVFLUSH QSHIFT [facility] Last Admin: 12/03/23 07:49 Dose: 3 ml Documented By: SYLVIE Labs 12/03/23 06:07 12/02/23 13:47 Labs: Laboratory Results - last 24 hr 12/02/23 12/03/23 13:47 06:07 MCV 87.1 88.0 MCH 28.9 28.7 MCHC 33.2 32.6 RDW 15.1 15.3 Plt Count 155 L 165 MPV 9.0 L 9.7 Immature Gran % (Auto) 0.4 Neut % (Auto) 70.4 Lymph % (Auto) 17.9 L [place] % (Auto) 9.3 Eos % (Auto) 1.4 Baso % (Auto) 0.6 Lymph # (Auto) 2.0 [place] # (Auto) 1.0 Eos # (Auto) 0.2 Baso # (Auto) 0.1 Abs Immat Gran (auto) 0.04 H Absolute Neuts (auto) 7.7 Absolute Nucleated RBC 0.000 0.000 Nucleated RBC % (auto) 0.0 0.0 Anion Gap 11 L Estim Creat Clear Calc 95.2 Estimated GFR > 60 Random Glucose 128 H Calcium 8.1 L Phosphorus 1.9 L Magnesium 1.4 L* Total Bilirubin 0.5 AST 72 H ALT 94 H Alkaline Phosphatase 136 H Troponin I High Sens 3.3 D Total Protein 6.5 Albumin 2.9 L Assessment and Plan (1) History of colostomy reversal: Status: Acute Plan 63F PMH gerd with barretts esophagus, diverticulitis requiring colostomy 05/2023 complicated by colovesicular fistula, nonischemic cardiomyopathy with recovered EF, s/p ostomy reversal, now with electrolyte abnormalities and 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
[2023-12-03 12:31] LABS: Alanine Aminotransferase 71 U/L (0-31); Albumin Level 2.7 g/dL (3.5-5.0); Alkaline Phosphatase 124 U/L (39-117); Anion Gap 13 (12-20); Aspartate Amino Transferase 52 U/L (5-31); Bilirubin Direct 0.3 mg/dL (0.0-0.5); Bilirubin Total 0.6 mg/dL (0.0-1.0); Blood Urea Nitrogen 5 mg/dL (9-16); Calcium 8.1 mg/dL (8.4-10.2); Carbon Dioxide 26 mmol/L (22-29); Chloride 101 mmol/L (96-108); Creatinine Clr Calc Pharmacy 105.1; Estimated Glomerular Filt Rate > 60; Glucose Fasting 79 mg/dL (60-99); Magnesium 1.8 mg/dL (1.6-2.6); Potassium 3.8 mmol/L (3.3-5.1); Sodium 136 mmol/L (135-145); Total Protein 6.3 g/dL (6.5-8.0)
--- NOTE | 2023-12-03 14:12 | P.PNGS_ITS ---
Subjective Subjective Date of Service: 12/03/23 Interval history: Patient is complaining of moderate stool coming from her vagina and nothing coming from the rectal area. The groin area and perineal area is becoming more irritated and sore. She has some mild nausea but is able to tolerate liquids. She is angry that she finds herself in this situation after hoping that her surgery with a colostomy takedown would have softer issues. Physical Exam 2 Vital Signs: Vital Signs: Last Vital Signs Temp 98.4 F 12/03/23 07:51 Pulse 88 12/03/23 07:51 Resp 18 12/03/23 07:51 BP 143/63 H 12/03/23 07:51 Pulse Ox 98 12/03/23 07:51 O2 Del Method Room Air 12/03/23 07:51 O2 Flow Rate 2 11/30/23 13:50 BMI result Body Mass Index 26.4 Const: General: cooperative and tired appearing Nutritional Appearance: a verage body habitus Orientation/consciousness: oriented to person, oriented to place, oriented to time and patient oriented x3 Resp: Effort & Inspection: normal respiratory effort Auscultation: clear to auscultation bilaterally Cardio: Rate: regular rate Rhythm: regular rhythm GI: Other: Abdomen is soft nondistended nontender. Groin area and vaginal area has some staining of stool material. Neuro: General: oriented to person, oriented to place, oriented to time and patient oriented x3 Psych: Appearance: grossly normal Mental Status: mental status grossly normal Thought content: Normal thought content present Insight: Good insight present (Psych) Judgement: Good judgement present (Psych) Objective Data Active Medications Al Hydroxide/Mg Hydroxide (Magnesium Hydrox/Alum Hydrox 30 Ml Oral.Susp) 30 ml PO Q4H PRN PRN Reason: Heartburn/Nausea Atorvastatin Calcium (Atorvastatin Calcium 20 Mg Tablet) 20 mg PO BEDTIME [facility] Last Admin: 12/02/23 21:46 Dose: 20 mg Documented By: AMRIK Carvedilol (Carvedilol 6.25 Mg Tablet) 6.25 mg PO BID [facility]; Protocol Last Admin: 12/03/23 07:50 Dose: 6.25 mg Documented By: SYLVIE Heparin Sodium (Porcine) (Heparin Sodium,Porcine 5,000 Unit/Ml Vial) 5,000 unit SUBCUT Q8H [facility] Last Admin: 12/03/23 11:05 Dose: 5,000 unit Documented By: SYLVIE Hydromorphone HCl (Hydromorphone Hcl 4 Mg Tablet) 4 mg PO Q4H PRN PRN Reason: Pain, Moderate(Pain Scale 4-6) Last Admin: 12/01/23 08:29 Dose: 4 mg Documented By: DOBROB Hydromorphone HCl (Hydromorphone Hcl 2 Mg/Ml Vial) 2 mg IVPUSH Q4H PRN; Protocol PRN Reason: Pain, Severe (Pain Scale 7-10) Last Admin: 12/03/23 11:05 Dose: 2 mg Documented By: SYLVIE Acetaminophen (Ofirmev) 1,000 mg in 100 mls @ 400 mls/hr IV Q6H [facility] Last Infusion: 12/03/23 11:23 Dose: Infused Documented By: SYLVIE Metronidazole (Flagyl) 500 mg in 100 mls @ 100 mls/hr IV Q8H [facility] Last Admin: 12/03/23 13:43 Dose: 100 mls/hr Documented By: SYLVIE Levofloxacin (Levaquin) 500 mg in 100 mls @ 100 mls/hr IV Q24H [facility] Last Infusion: 12/02/23 16:32 Dose: Infused Documented By: SYLVIE Lorazepam (Lorazepam 1 Mg Tablet) 1 mg PO BEDTIME [facility] Last Admin: 12/02/23 21:46 Dose: 1 mg Documented By: AMRIK Losartan Potassium (Losartan Potassium 25 Mg Tablet) 25 mg PO DAILY [facility]; Protocol Last Admin: 12/03/23 07:50 Dose: 25 mg Documented By: SYLVIE Magnesium Oxide (Magnesium Oxide 400 Mg Tablet) 400 mg PO BIDPC [facility] Last Admin: 12/03/23 07:49 Dose: 400 mg Documented By: SYLVIE Mirtazapine (Mirtazapine 15 Mg Tablet) 15 mg PO BEDTIME [facility] Last Admin: 12/02/23 21:47 Dose: 15 mg Documented By: AMRIK Ondansetron HCl (Ondansetron Hcl 4 Mg/2 Ml Vial) 4 mg IVPUSH Q8H PRN PRN Reason: Nausea and Vomiting Last Admin: 12/03/23 11:05 Dose: 4 mg Documented By: SYLVIE Pantoprazole Sodium (Pantoprazole Sodium 40 Mg/10 Ml Vial) 40 mg IVPUSH DAILY@0630 [facility] Last Admin: 12/03/23 06:11 Dose: 40 mg Documented By: AMRIK Potassium Chloride (Potassium Chloride Er 10 Meq Tablet.Er) 10 meq PO BID [facility] Last Admin: 12/03/23 07:49 Dose: 10 meq Documented By: SYLVIE Sodium Chloride (0.9 % Sodium Chloride Flush 3 Ml Syringe) 3 ml IVFLUSH QSHIFT [facility] Last Admin: 12/03/23 07:49 Dose: 3 ml Documented By: SYLVIE Labs 12/03/23 06:07 12/03/23 06:07 Labs: Laboratory Results - last 24 hr 12/02/23 12/03/23 13:47 06:07 MCV 88.0 MCH 28.7 MCHC 32.6 RDW 15.3 Plt Count 165 MPV 9.7 Absolute Nucleated RBC 0.000 Nucleated RBC % (auto) 0.0 Anion Gap 11 L 13 Estim Creat Clear Calc 95.2 105.1 Estimated GFR > 60 > 60 Random Glucose 128 H Fasting Glucose 79 Calcium 8.1 L 8.1 L Phosphorus 1.9 L Magnesium 1.4 L* 1.8 Total Bilirubin 0.5 0.6 Direct Bilirubin 0.3 AST 72 H 52 H ALT 94 H 71 H Alkaline Phosphatase 136 H 124 H Troponin I High Sens 3.3 D Total Protein 6.5 6.3 L Albumin 2.9 L 2.7 L Procedures Date of Service Date of Service: 12/03/23 Progress Note: A&P Assessment and plan (1) Colovaginal fistula: Status: Acute Assessment and Plan: Patient is postop day 3 status post colostomy takedown unfortunately most likely with a colovaginal fistula. Patient is passing a moderate amount of stool and gas from her vagina not much any material coming from her rectum. She is frustrated by this situation although hemodynamically stable. Dr. Quan is aware of the situation and the patient is aware that he is aware. We have discussed risks and benefits in knowing that she needs another operation and at this point she would prefer to have a different team follow-through with her care. She stable so there is no need to make any decisions or transverse tonight for plan to discuss with Dr. Quan and find a good team to be able to operate on her is all this issue. Patient understands and agrees with the plan. Dr. Quan will come in and see her today to discuss the next steps Time Spent With Patient Time: Total time managing care of this patient today ____ minutes. Quality Stroke Does the patient have a stroke diagnosis?: No VTE Prior VTE?: No VTE Risk Level:: Surgical - high VTE Device Contraindication: N/A - Device Ordered VTE Drug Contraindication: N/A - Med Ordered
[2023-12-03] MEDS: levoFLOXacin/D5W 500 MG/100 ML PIGGYBACK 100 MG IV (15:07)
[2023-12-03 15:19] VITALS: BP 142/70; PULSE 85; RESP 18; TEMP 36.7; O2SAT 95
[2023-12-03] MEDS: Zinc Oxide 20% Ointment 28.35 GM TUBE 1 APPL TOPICAL (16:57)
--- NOTE | 2023-12-03 17:54 | PM.PNGS ---
Subjective Subjective Date of Service: 12/06/23 Interval history: Lengthy discussion was had with the patient initially with me and then with Dr. Dorantes present, discussing the issue of drainage through the patient's vagina. The concern is that the patient either has posterior fornix of vagina with the EEA staple line which included the posterior fornix of vagina secondary to marked cicatrization and scarring from patient's original insult of colovesicular fistula or the EEA stapler slipped out of the anus and went transvaginally and thus resulting in the current symptoms. I reviewed with the patient that this should be addressed operatively , and I will do this with my colleague, Dr. Ruvalcaba (colorectal surgeon), who will work with me me to correct the anastomotic issue. Procedure will be exploratory laparotomy, anastomotic revision, repair of vaginal defect. Risks, benefits, alternatives of the procedure were extensively reviewed and included but not limited to bleeding, infection, numbness, pain, scarring, ostomy (including ileostomy) and the patient wishes to proceed. All questions were answered. Arrangements were made for this for tomorrow. Physical Exam Vital Signs: Vital Signs: Last Vital Signs Temp 98.1 F 12/03/23 15:19 Pulse 85 12/03/23 15:19 Resp 18 12/03/23 15:19 BP 142/70 H 12/03/23 15:19 Pulse Ox 95 12/03/23 15:19 O2 Del Method Room Air 12/03/23 15:19 O2 Flow Rate 2 11/30/23 13:50 BMI result Body Mass Index 26.4 GI: Other: Abdomen soft. Incisions; clean dry and intact Drainage through introitus consistent with GI effluent Objective Data Active Medications Al Hydroxide/Mg Hydroxide (Magnesium Hydrox/Alum Hydrox 30 Ml Oral.Susp) 30 ml PO Q4H PRN PRN Reason: Heartburn/Nausea Atorvastatin Calcium (Atorvastatin Calcium 20 Mg Tablet) 20 mg PO BEDTIME [facility] Last Admin: 12/02/23 21:46 Dose: 20 mg Documented By: AMRIK Carvedilol (Carvedilol 6.25 Mg Tablet) 6.25 mg PO BID [facility]; Protocol Last Admin: 12/03/23 07:50 Dose: 6.25 mg Documented By: SYLVIE Heparin Sodium (Porcine) (Heparin Sodium,Porcine 5,000 Unit/Ml Vial) 5,000 unit SUBCUT Q8H [facility] Last Admin: 12/03/23 11:05 Dose: 5,000 unit Documented By: SYLVIE Hydromorphone HCl (Hydromorphone Hcl 4 Mg Tablet) 4 mg PO Q4H PRN PRN Reason: Pain, Moderate(Pain Scale 4-6) Last Admin: 12/01/23 08:29 Dose: 4 mg Documented By: BROJackie Hydromorphone HCl (Hydromorphone Hcl 2 Mg/Ml Vial) 2 mg IVPUSH Q4H PRN; Protocol PRN Reason: Pain, Severe (Pain Scale 7-10) Last Admin: 12/03/23 15:06 Dose: 2 mg Documented By: SYLVIE Metronidazole (Flagyl) 500 mg in 100 mls @ 100 mls/hr IV Q8H [facility] Last Infusion: 12/03/23 15:23 Dose: Infused Documented By: SYLVIE Levofloxacin (Levaquin) 500 mg in 100 mls @ 100 mls/hr IV Q24H [facility] Last Infusion: 12/03/23 16:47 Dose: Infused Documented By: SYLVIE Lorazepam (Lorazepam 1 Mg Tablet) 1 mg PO BEDTIME [facility] Last Admin: 12/02/23 21:46 Dose: 1 mg Documented By: AMRIK Losartan Potassium (Losartan Potassium 25 Mg Tablet) 25 mg PO DAILY [facility]; Protocol Last Admin: 12/03/23 07:50 Dose: 25 mg Documented By: SYLVIE Magnesium Oxide (Magnesium Oxide 400 Mg Tablet) 400 mg PO BIDPC [facility] Last Admin: 12/03/23 16:57 Dose: 400 mg Documented By: SYLVIE Mirtazapine (Mirtazapine 15 Mg Tablet) 15 mg PO BEDTIME [facility] Last Admin: 12/02/23 21:47 Dose: 15 mg Documented By: AMRIK Ondansetron HCl (Ondansetron Hcl 4 Mg/2 Ml Vial) 4 mg IVPUSH Q8H PRN PRN Reason: Nausea and Vomiting Last Admin: 12/03/23 11:05 Dose: 4 mg Documented By: SYLVIE Pantoprazole Sodium (Pantoprazole Sodium 40 Mg/10 Ml Vial) 40 mg IVPUSH DAILY@0630 [facility] Last Admin: 12/03/23 06:11 Dose: 40 mg Documented By: AMRIK Potassium Chloride (Potassium Chloride Er 10 Meq Tablet.Er) 10 meq PO BID [facility] Last Admin: 12/03/23 07:49 Dose: 10 meq Documented By: SYLVIE Sodium Chloride (0.9 % Sodium Chloride Flush 3 Ml Syringe) 3 ml IVFLUSH QSHIFT [facility] Last Admin: 12/03/23 15:06 Dose: 3 ml Documented By: SYLVIE Zinc Oxide (Zinc Oxide 20% Ointment 28.35 Gm Tube) 1 appl TOPICAL DAILY [facility]; Protocol Last Admin: 12/03/23 16:57 Dose: 1 appl Documented By: SYLVIE Labs 12/06/23 05:54 12/06/23 05:54 Labs: Laboratory Results - last 24 hr 12/03/23 06:07 MCV 88.0 MCH 28.7 MCHC 32.6 RDW 15.3 Plt Count 165 MPV 9.7 Absolute Nucleated RBC 0.000 Nucleated RBC % (auto) 0.0 Anion Gap 13 Estim Creat Clear Calc 105.1 Estimated GFR > 60 Fasting Glucose 79 Calcium 8.1 L Magnesium 1.8 Total Bilirubin 0.6 Direct Bilirubin 0.3 AST 52 H ALT 71 H Alkaline Phosphatase 124 H Total Protein 6.3 L Albumin 2.7 L Procedures Date of Service Date of Service: 12/06/23 Progress Note: A&P Assessment and plan (1) Postop check: Status: Acute Plan See above Time Spent With Patient Time: Total time managing care of this patient today ____ minutes. Quality Stroke Does the patient have a stroke diagnosis?: No VTE Prior VTE?: No VTE Risk Level:: Surgical - high VTE Device Contraindication: N/A - Device Ordered VTE Drug Contraindication: N/A - Med Ordered
[2023-12-03 20:04] VITALS: BP 115/60; PULSE 87; RESP 20; TEMP 36.6; O2SAT 97
[2023-12-03] MEDS: Atorvastatin Calcium 20 MG TABLET PO (21:05)
[2023-12-03] MEDS: Mirtazapine 15 MG TABLET PO (21:05)
[2023-12-03] MEDS: LORazepam 1 MG TABLET PO (21:05)
[2023-12-04] VITALS (18 sets, daily range): BP systolic 104–137; BP diastolic 51–74; PULSE 81–116; RESP 11–18; TEMP 36.3–37.2; O2SAT 92–100
[2023-12-04] MEDS: Heparin Sodium,Porcine 5,000 UNIT/ML VIAL 5000 UNIT SUBCUT ×2 (02:26→20:09)
[2023-12-04] MEDS: Acetaminophen 1,000 MG/100 ML PIGGYBACK 400 MG IV ×4 (05:14→21:55)
[2023-12-04] MEDS: Pantoprazole Sodium 40 MG/10 ML VIAL IVPUSH (05:41)
[2023-12-04] MEDS: metroNIDAZOLE/NS 500 MG/100 ML PIGGYBACK 100 MG IV ×2 (05:41→21:55)
[2023-12-04 05:57] LABS: Hematocrit 28.4 % (37.0-47.0); Hemoglobin 9.4 g/dl (12.0-16.0); Mean Corpuscular HGB Conc 33.1 g/dl (31.0-35.0); Mean Corpuscular Hemoglobin 29.2 pg (27.0-33.0); Mean Corpuscular Volume 88.2 fL (80.0-98.0); Mean Platelet Volume 9.2 fL (9.4-12.3); Platelet Count 184 X10*3/uL (160-400); Red Blood Count 3.22 X10*6/uL (4.20-5.50); Red Cell Distribution Width 15.2 % (11.0-16.0)
[2023-12-04 06:10] LABS: Anion Gap 14 (12-20); Blood Urea Nitrogen 3 mg/dL (9-16); Calcium 7.9 mg/dL (8.4-10.2); Carbon Dioxide 26 mmol/L (22-29); Chloride 100 mmol/L (96-108); Creatinine Clr Calc Pharmacy 105.1; Estimated Glomerular Filt Rate > 60; Glucose Fasting 69 mg/dL (60-99); Magnesium 1.6 mg/dL (1.6-2.6); Potassium 3.5 mmol/L (3.3-5.1); Sodium 136 mmol/L (135-145)
[2023-12-04] MEDS: Magnesium Oxide 400 MG TABLET PO (07:58)
[2023-12-04] MEDS: Potassium Chloride ER 10 MEQ TABLET.ER PO (07:58)
[2023-12-04] MEDS: 0.9 % Sodium Chloride Flush 3 ML SYRINGE IVFLUSH ×2 (07:59→17:35)
[2023-12-04] MEDS: carvediloL 6.25 MG TABLET PO ×2 (07:59→20:10)
[2023-12-04] MEDS: Losartan Potassium 25 MG TABLET PO (07:59)
[2023-12-04] MEDS: Magnesium Sulfate/H2O 2 GM/50 ML PIGGYBACK IV (07:59)
[2023-12-04] MEDS: HYDROmorphone HCl 2 MG/ML VIAL IVPUSH ×3 (08:14→20:09)
--- NOTE | 2023-12-04 09:01 | HO.PM.IMPN ---
Subjective Subjective Date of Service: 12/04/23 Interval History: no new complaints Physical Exam Vital Signs: Vital Signs: Last Vital Signs Temp 97.7 F 12/04/23 07:36 Pulse 81 12/04/23 07:36 Resp 16 12/04/23 07:36 BP 123/58 L 12/04/23 07:36 Pulse Ox 96 12/04/23 07:36 O2 Del Method Room Air 12/04/23 07:36 O2 Flow Rate 2 11/30/23 13:50 BMI result Body Mass Index 26.4 General: AO X 3, no acute distress Resp: CTA bilateral, no accessory muscles used CVS: S1,S2,RRR Neuro: motor grossly intact, alert Psych: appropriate affect, appropriate insight Objective Data Active Medications Al Hydroxide/Mg Hydroxide (Magnesium Hydrox/Alum Hydrox 30 Ml Oral.Susp) 30 ml PO Q4H PRN PRN Reason: Heartburn/Nausea Atorvastatin Calcium (Atorvastatin Calcium 20 Mg Tablet) 20 mg PO BEDTIME [facility] Last Admin: 12/03/23 21:05 Dose: 20 mg Documented By: SYLVIE Carvedilol (Carvedilol 6.25 Mg Tablet) 6.25 mg PO BID [facility]; Protocol Last Admin: 12/04/23 07:59 Dose: 6.25 mg Documented By: CALI Heparin Sodium (Porcine) (Heparin Sodium,Porcine 5,000 Unit/Ml Vial) 5,000 unit SUBCUT Q8H [facility] Last Admin: 12/04/23 02:26 Dose: 5,000 unit Documented By: GUERDA Hydromorphone HCl (Hydromorphone Hcl 4 Mg Tablet) 4 mg PO Q4H PRN PRN Reason: Pain, Moderate(Pain Scale 4-6) Last Admin: 12/01/23 08:29 Dose: 4 mg Documented By: DOBROB Hydromorphone HCl (Hydromorphone Hcl 2 Mg/Ml Vial) 2 mg IVPUSH Q4H PRN; Protocol PRN Reason: Pain, Severe (Pain Scale 7-10) Last Admin: 12/04/23 08:14 Dose: 2 mg Documented By: CALI Metronidazole (Flagyl) 500 mg in 100 mls @ 100 mls/hr IV Q8H [facility] Last Infusion: 12/04/23 06:41 Dose: Infused Documented By: GUERDA Levofloxacin (Levaquin) 500 mg in 100 mls @ 100 mls/hr IV Q24H [facility] Last Infusion: 12/03/23 16:47 Dose: Infused Documented By: SYLVIE Acetaminophen (Ofirmev) 1,000 mg in 100 mls @ 400 mls/hr IV Q6H [facility] Last Infusion: 12/04/23 05:30 Dose: Infused Documented By: GUERDA Magnesium Sulfate (Magnesium Sulfate/H2o) 2 gm in 50 mls @ 25 mls/hr IV ONCE ONE Stop: 12/04/23 09:02 Last Admin: 12/04/23 07:59 Dose: 25 mls/hr Documented By: CALI Lorazepam (Lorazepam 1 Mg Tablet) 1 mg PO BEDTIME [facility] Last Admin: 12/03/23 21:05 Dose: 1 mg Documented By: SYLVIE Losartan Potassium (Losartan Potassium 25 Mg Tablet) 25 mg PO DAILY [facility]; Protocol Last Admin: 12/04/23 07:59 Dose: 25 mg Documented By: CALI Magnesium Oxide (Magnesium Oxide 400 Mg Tablet) 400 mg PO BIDPC [facility] Last Admin: 12/04/23 07:58 Dose: 400 mg Documented By: CALI Mirtazapine (Mirtazapine 15 Mg Tablet) 15 mg PO BEDTIME [facility] Last Admin: 12/03/23 21:05 Dose: 15 mg Documented By: SYLVIE Ondansetron HCl (Ondansetron Hcl 4 Mg/2 Ml Vial) 4 mg IVPUSH Q8H PRN PRN Reason: Nausea and Vomiting Last Admin: 12/03/23 19:09 Dose: 4 mg Documented By: SYLVIE Potassium Chloride (Potassium Chloride Er 10 Meq Tablet.Er) 10 meq PO BID [facility] Last Admin: 12/04/23 07:58 Dose: 10 meq Documented By: CALI Sodium Chloride (0.9 % Sodium Chloride Flush 3 Ml Syringe) 3 ml IVFLUSH QSHIFT [facility] Last Admin: 12/04/23 07:59 Dose: 3 ml Documented By: CALI Zinc Oxide (Zinc Oxide 20% Ointment 28.35 Gm Tube) 1 appl TOPICAL DAILY [facility]; Protocol Last Admin: 12/03/23 16:57 Dose: 1 appl Documented By: SYLVIE Labs 12/04/23 05:40 12/04/23 05:40 Labs: Laboratory Results - last 24 hr 12/03/23 12/04/23 06:07 05:40 MCV 88.2 MCH 29.2 MCHC 33.1 RDW 15.2 Plt Count 184 MPV 9.2 L Absolute Nucleated RBC 0.000 Nucleated RBC % (auto) 0.0 Anion Gap 13 14 Estim Creat Clear Calc 105.1 105.1 Estimated GFR > 60 > 60 Fasting Glucose 79 69 Calcium 8.1 L 7.9 L Magnesium 1.8 1.6 Total Bilirubin 0.6 Direct Bilirubin 0.3 AST 52 H ALT 71 H Alkaline Phosphatase 124 H Total Protein 6.3 L Albumin 2.7 L Assessment and Plan (1) History of colostomy reversal: Status: Acute Plan 63F PMH gerd with barretts esophagus, diverticulitis requiring colostomy 05/2023 complicated by colovesicular fistula, nonischemic cardiomyopathy with recovered EF, s/p ostomy reversal, now with electrolyte abnormalities and 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
[2023-12-04] MEDS: Zinc Oxide 20% Ointment 28.35 GM TUBE 1 APPL TOPICAL (10:21)
--- NOTE | 2023-12-04 11:11 | P.CONAN_ITS ---
[facility] Active Problems Active Problems: All Active Problems (Updated 12/03/23 @ 16:14 by Daphne Dorantes MD) Colovaginal fistula (Acute) History of colostomy reversal (Acute) Status post colostomy, follow-up exam (Acute) NSTEMI (non-ST elevated myocardial infarction) (Acute) Hypomagnesemia (Acute) Hypokalemia (Acute) NSVT (nonsustained ventricular tachycardia) (Acute) PVC (premature ventricular contraction) (Acute) S/P colostomy (Acute) Colovesical fistula (Acute) Perforated diverticulum (Acute) Irritable bowel syndrome with constipation (Acute) Hiatal hernia (Acute) Diverticulosis (Acute) Past Medical History Medical History Myocardial infarction Hypertension Barretts esophagus GERD (gastroesophageal reflux disease) Family History Family History Father Colon cancer Paternal Aunt Colon cancer Family history of problems with anesthesia: No Surgical History Surgical History H/O dilation and curettage History of exploratory laparotomy (05/11/23) History of esophagogastroduodenoscopy (EGD) Hx of colonoscopy History of Problems with Anesthesia: No Social History Social History Household Members: None Housing: House Do you presently have visiting nurse or other home services: No Alcohol intake: never Patient Tobacco Use Status: Never used Tobacco Tobacco use type: Cigarette Cigarette Packs Per Day: 0.5 Cigarettes Per Day: 10.0 Years Smoked: 30 e-Cigarette/Vaping Use: Never Used Use of substances other than those prescribed or required for medical reasons: No Substance Use Type: Marijuana Substance Use Frequency: Daily Last Used Substance: Days (ago) Currently Displaying Signs/Symptoms of Drug Intoxication Withdrawal: No Have you been hit, kicked, punched, or otherwise hurt by someone within the past year? If so, by whom?: No Are you DNR?: No Advance Directives: No Advance Directives Information Provided: Yes Do you have thoughts of harming others: None Do you have a plan to hurt others: No Plan Patient : No service: No Meds Allergies Allergy/AdvReac Type Severity Reaction Status Date / Time clams Allergy Severe Stomach Verified 12/04/23 10:54 Upset amoxicillin [Augmentin] Allergy Unknown GI, Verified 12/04/23 10:54 Difficulty breathing clavulanic acid [Augmentin] Allergy Unknown GI, Verified 12/04/23 10:54 Difficulty breathing codeine [CODEINE] Allergy Unknown SENSITIVIT Verified 12/04/23 10:54 Y erythromycin base Allergy Unknown GI, DIFF Verified 12/04/23 10:54 [Erythromycin Base] BREATHING NSAIDS (Non-Steroidal Allergy Unknown GI UPSET Verified 12/04/23 10:54 Anti-Inflamma [NSAIDS (NON-STEROIDAL ANTI-INFLAMMA] Sulfa (Sulfonamide Allergy Unknown RASH Verified 12/04/23 10:54 Antibiotics) morphine [MORPHINE] AdvReac Severe NAUSEA Verified 12/04/23 10:54 aspirin [Aspirin] AdvReac Mild STOMACH Verified 12/04/23 10:54 UPSET Active Medications: Current Medications Al Hydroxide/Mg Hydroxide (Magnesium Hydrox/Alum Hydrox 30 Ml Oral.Susp) 30 ml PO Q4H PRN PRN Reason: Heartburn/Nausea Atorvastatin Calcium (Atorvastatin Calcium 20 Mg Tablet) 20 mg PO BEDTIME [facility] Last Admin: 12/03/23 21:05 Dose: 20 mg Carvedilol (Carvedilol 6.25 Mg Tablet) 6.25 mg PO BID [facility]; Protocol Last Admin: 12/04/23 07:59 Dose: 6.25 mg Heparin Sodium (Porcine) (Heparin Sodium,Porcine 5,000 Unit/Ml Vial) 5,000 unit SUBCUT Q8H [facility] Last Admin: 12/04/23 10:04 Dose: Not Given Hydromorphone HCl (Hydromorphone Hcl 4 Mg Tablet) 4 mg PO Q4H PRN PRN Reason: Pain, Moderate(Pain Scale 4-6) Last Admin: 12/01/23 08:29 Dose: 4 mg Hydromorphone HCl (Hydromorphone Hcl 2 Mg/Ml Vial) 2 mg IVPUSH Q4H PRN; Protocol PRN Reason: Pain, Severe (Pain Scale 7-10) Last Admin: 12/04/23 08:14 Dose: 2 mg Metronidazole (Flagyl) 500 mg in 100 mls @ 100 mls/hr IV Q8H [facility] Last Infusion: 12/04/23 06:41 Dose: Infused Levofloxacin (Levaquin) 500 mg in 100 mls @ 100 mls/hr IV Q24H [facility] Last Infusion: 12/03/23 16:47 Dose: Infused Acetaminophen (Ofirmev) 1,000 mg in 100 mls @ 400 mls/hr IV Q6H [facility] Last Infusion: 12/04/23 10:33 Dose: Infused Lorazepam (Lorazepam 1 Mg Tablet) 1 mg PO BEDTIME [facility] Last Admin: 12/03/23 21:05 Dose: 1 mg Losartan Potassium (Losartan Potassium 25 Mg Tablet) 25 mg PO DAILY [facility]; Protocol Last Admin: 12/04/23 07:59 Dose: 25 mg Magnesium Oxide (Magnesium Oxide 400 Mg Tablet) 400 mg PO BIDPC [facility] Last Admin: 12/04/23 07:58 Dose: 400 mg Mirtazapine (Mirtazapine 15 Mg Tablet) 15 mg PO BEDTIME [facility] Last Admin: 12/03/23 21:05 Dose: 15 mg Ondansetron HCl (Ondansetron Hcl 4 Mg/2 Ml Vial) 4 mg IVPUSH Q8H PRN PRN Reason: Nausea and Vomiting Last Admin: 12/03/23 19:09 Dose: 4 mg Potassium Chloride (Potassium Chloride Er 10 Meq Tablet.Er) 10 meq PO BID [facility] Last Admin: 12/04/23 07:58 Dose: 10 meq Sodium Chloride (0.9 % Sodium Chloride Flush 3 Ml Syringe) 3 ml IVFLUSH QSHIFT [facility] Last Admin: 12/04/23 07:59 Dose: 3 ml Zinc Oxide (Zinc Oxide 20% Ointment 28.35 Gm Tube) 1 appl TOPICAL DAILY [facility]; Protocol Last Admin: 12/04/23 10:21 Dose: 1 appl Home Medications Medication Instructions Recorded Confirmed Last Taken Type atorvastatin 20 mg tablet 20 mg PO DAILY 03/01/23 11/30/23 11/29/23 History esomeprazole magnesium 40 mg 40 mg PO DAILY 03/01/23 11/30/23 11/16/23 History capsule,delayed release (Nexium) hydrochlorothiazide 25 mg tablet 25 mg PO DAILY 03/01/23 11/30/23 11/27/23 History multivitamin 1 tab PO DAILY 05/04/23 11/30/23 11/09/23 History carvedilol 6.25 mg tablet 6.25 mg PO BID 10/13/23 11/30/23 11/30/23 History losartan 25 mg tablet 25 mg PO DAILY 10/13/23 11/30/23 11/29/23 History potassium chloride 10 mEq 10 meq PO BID 10/13/23 11/30/23 11/23/23 History capsule,extended release calcium carbonate 600 mg-vitamin 1 tab PO DAILY 11/30/23 11/30/23 Unknown History D3 5 mcg (200 unit) tablet (Calcium 600 + D(3)) lorazepam 1 mg tablet 1 mg PO BEDTIME anxiety 11/30/23 11/30/23 Unknown History mirtazapine 15 mg tablet 15 mg PO BEDTIME 11/30/23 11/30/23 Unknown History Exam Height,Weight and Vital Signs: Height 5 ft 2 in Weight 65.499 kg Last Vital Signs Temp 97.3 F 12/04/23 10:55 Pulse 83 12/04/23 10:55 Resp 16 12/04/23 10:55 BP 134/63 12/04/23 10:55 Pulse Ox 96 12/04/23 10:55 O2 Del Method Room Air 12/04/23 10:55 O2 Flow Rate 2 11/30/23 13:50 Pertinent Lab Results Pertinent Lab Results: Laboratory Tests 11/30/23 11/30/23 12/01/23 08:58 09:01 06:04 WBC 8.5 12.4 H RBC 4.30 D 3.54 L Hgb 12.2 D 10.4 L Hct 36.6 L D 30.7 L MCV 85.1 86.7 MCH 28.4 29.4 MCHC 33.3 33.9 RDW 14.6 14.4 Plt Count 196 195 MPV 9.1 L 9.3 L Immature Gran % (Auto) 0.4 Neut % (Auto) 74.6 H Lymph % (Auto) 14.3 L Parke % (Auto) 10.3 Eos % (Auto) 0.2 Baso % (Auto) 0.2 Lymph # (Auto) 1.8 Parke # (Auto) 1.3 H Eos # (Auto) 0.0 Baso # (Auto) 0.0 Abs Immat Gran (auto) 0.05 H Absolute Neuts (auto) 9.2 H Absolute Nucleated RBC 0.000 0.000 Nucleated RBC % (auto) 0.0 0.0 Sodium 137 137 Potassium 2.7 L* 4.4 D Chloride 101 108 Carbon Dioxide 22 21 L Anion Gap 17 12 BUN 17 H 11 Creatinine 0.61 0.65 Estim Creat Clear Calc 80.5 77.6 Estimated GFR > 60 > 60 Random Glucose 103 Fasting Glucose 81 Calcium 9.2 D 7.8 L D Phosphorus Magnesium Total Bilirubin Direct Bilirubin AST ALT Alkaline Phosphatase Troponin I High Sens Total Protein Albumin Blood Type O Positive Antibody Screen NEGATIVE 12/02/23 12/03/23 12/04/23 13:47 06:07 05:40 WBC 10.9 H 10.2 10.0 RBC 3.56 L 3.49 L 3.22 L Hgb 10.3 L 10.0 L 9.4 L Hct 31.0 L 30.7 L 28.4 L MCV 87.1 88.0 88.2 MCH 28.9 28.7 29.2 MCHC 33.2 32.6 33.1 RDW 15.1 15.3 15.2 Plt Count 155 L 165 184 MPV 9.0 L 9.7 9.2 L Immature Gran % (Auto) 0.4 Neut % (Auto) 70.4 Lymph % (Auto) 17.9 L Parke % (Auto) 9.3 Eos % (Auto) 1.4 Baso % (Auto) 0.6 Lymph # (Auto) 2.0 Parke # (Auto) 1.0 Eos # (Auto) 0.2 Baso # (Auto) 0.1 Abs Immat Gran (auto) 0.04 H Absolute Neuts (auto) 7.7 Absolute Nucleated RBC 0.000 0.000 0.000 Nucleated RBC % (auto) 0.0 0.0 0.0 Sodium 137 136 136 Potassium 3.1 L D 3.8 D 3.5 Chloride 102 101 100 Carbon Dioxide 27 26 26 Anion Gap 11 L 13 14 BUN 6 L 5 L 3 L Creatinine 0.53 0.48 L 0.48 L Estim Creat Clear Calc 95.2 105.1 105.1 Estimated GFR > 60 > 60 > 60 Random Glucose 128 H Fasting Glucose 79 69 Calcium 8.1 L 8.1 L 7.9 L Phosphorus 1.9 L Magnesium 1.4 L* 1.8 1.6 Total Bilirubin 0.5 0.6 Direct Bilirubin 0.3 AST 72 H 52 H ALT 94 H 71 H Alkaline Phosphatase 136 H 124 H Troponin I High Sens 3.3 D Total Protein 6.5 6.3 L Albumin 2.9 L 2.7 L Blood Type Antibody Screen Airway Mallampati Class: II TM Dist: >3cm Neck ROM: Full Loose/Missing/Broken Teeth: No Heart: rrr Lungs: cta Assessment and Plan Assessment Anesthesia Assessment: Anesthesia Plan Discussed and Chart Reviewed Final Anesthetic Review Family History of Problems with Anesthesia: No History of Problems with Anesthesia: No NPO: Yes ASA Class: III Final Preanesthetic Review: No Changes in Pt Med Stat, Meds/Allgs Chart Reviewed, Consent Obtained/Reviewed and Anes Risks/Benef Reviewed Patient Risk: Intermediate Procedure Risk: Intermediate Anesthetic Plan Anesthetic Plan: GA Disposition: Standard PACU
--- NOTE | 2023-12-04 12:06 | MHC.SHP ---
Pre-Procedural Eval Section A - 24 Hr Update-Section A only Date of Service: 12/04/23 The patient is an INPATIENT: Yes Changes since office visit: No Cold of Flu in the past 2 weeks, No New Medical Problems, No Changes in Medication and No Patient answered all questions The patient has been examined within 24 hours of the surgical procedure. The History & Physical has been completed within 30 days and I have reviewed it.: Yes Section B - Complete if H&P > 30 days Chief Complaint: s/p colostomy reversal Allergies: Allergies Allergy/AdvReac Type Severity Reaction Status Date / Time clams Allergy Severe Stomach Verified 12/04/23 10:54 Upset amoxicillin [Augmentin] Allergy Unknown GI, Verified 12/04/23 10:54 Difficulty breathing clavulanic acid [Augmentin] Allergy Unknown GI, Verified 12/04/23 10:54 Difficulty breathing codeine [CODEINE] Allergy Unknown SENSITIVIT Verified 12/04/23 10:54 Y erythromycin base Allergy Unknown GI, DIFF Verified 12/04/23 10:54 [Erythromycin Base] BREATHING NSAIDS (Non-Steroidal Allergy Unknown GI UPSET Verified 12/04/23 10:54 Anti-Inflamma [NSAIDS (NON-STEROIDAL ANTI-INFLAMMA] Sulfa (Sulfonamide Allergy Unknown RASH Verified 12/04/23 10:54 Antibiotics) morphine [MORPHINE] AdvReac Severe NAUSEA Verified 12/04/23 10:54 aspirin [Aspirin] AdvReac Mild STOMACH Verified 12/04/23 10:54 UPSET Plan I have reviewed the history and physical and performed a pertinent physical examination on my patient. No changes have occurred unless specified. Time Spent With Patient Time: Total time managing care of this patient today ____ minutes.
--- NOTE | 2023-12-04 14:03 | MHC.CM.PN ---
EMR REVIEWED . 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 COMFORT PLUS VNA UPDATED. CM WILL CONTINUE TO FOLLOW FOR ANY CHANGE IN DC NEEDS/PLAN.
--- NOTE | 2023-12-04 16:08 | P.OP_ITS ---
Operative Note Operative Note Date of Service: 12/04/23 Narrative: Preoperative diagnosis: [] Anastomotic dysfunction status post colostomy reversal Postop diagnosis: [] Same Procedure [] exploratory laparotomy, takedown of colo -posterior fornix vaginal anastomosis, flexible sigmoidoscopy, EEA colorectal anastomosis, temporary loop ileostomy Surgeon: [] Kadeem Management Associate: [] Jordon Type of Anesthesia: [] General Indication for surgery: [] Patient is approximately 4 days status post colostomy reversal for original pathology of perforated sigmoid diverticulitis with colovesicular fistula. Patient was having initially serosanguineous drainage and then liquid being past transvaginally postoperatively, which raised concern of the integrity of the anastomosis. Intraoperative findings demonstrated, as was seen originally, marked cicatrization and and profound scarring of the pelvis related to the patient's prior colovesicular fistula and perforated diverticulitis. Posterior fornix of vagina was intimately adhered to rectum.. Anastomosis consisted of proximal col on and posterior fornix of vagina. Flexible sigmoidoscopy demonstrated appreciable 'diversion proctitis' of the rectum. Because of the marked friability of the rectum status post EEA anastomosis, decision was made to perform a protective loop ileostomy . Procedure; patient brought to the operating room, placed on operative table supine position, after adequate level of general anesthesia was induced, under sterile technique, Erwin catheter was placed, and the patient underwent flexible sigmoidoscopy with findings as noted above. Abdomen and peritoneum were then prepped and draped in usual sterile fashion. Using a lower midline incision through the previous scar from the most recent surgery, this carried down through skin, subcutaneous tissue, and linea alba. Posterior fascia and peritoneum were opened and extended along the length of the incision and packs and retractors were placed to enhance exposure. [place] - posterior fornix of vagina anastomosis was identified and taken down sharply. Vaginal defect was closed using interrupted 0 Vicryl sutures. Next, the rectum was from the vagina using a combination of blunt and sharp dissection. With adequately mobilized and perfused proximal bowel, a pursestring device was used on the proximal bowel followed by anvil placement and pursestring suture secured. Transanal placement of 25 [place] EEA was then advanced through the rectum at the desired location. Stapler was opened and the anvil connected to the stapler. Staple was uneventfully tightened and fired and 2 donuts were obtained. It was then noticed that rectal wall was quite friable secondary to the significant diversion proctitis and and there was concern of anastomotic integrity. Abdominal cavity is filled saline and the colon was insufflated , with saline filled abdominal cavity with small air leak demonstrated through the left lateral aspect of the anastomosis. It was then decided to take this anastomosis down, and repair the proctotomy using inner layer of 3-0 Vicryl and outer layer seromuscular 2-0 silk sutures. Proctosigmoidoscopy was again performed looking for an area with minimal proctitis. Another area was identified more proximal which seemed less inflamed, and again a pursestring suture was used in the proximal bowel and a new 25 [place] EEA advanced into the rectum and opened, connected to the anvil, and uneventfully fired. Abdominal cavity was again filled with saline and proctosigmoidoscopy demonstrated a small air leak from the anastomosis which was buttressed using seromuscular 2-0 silk sutures. The anastomosis was visualized with proctosigmoidoscopy And was wide and patent with no stricture. As noted above, because of concern of potential anastomotic leak, it was decided to perform a loop ileostomy for anastomotic protection. Distal ileum was brought onto the field and through a right lower quadrant muscle-splitting incision, brought out as a loop. A loop Bar was placed through the mesenteric side , and matured at the completion of the procedure using a longitudinal incision with transmural to dermal interrupted 3-0 Vicryl sutures followed by ostomy appliance. Ostomy was pink and viable at completion of the procedure. Abdominal cavity was copiously irrigated and secured for hemostasis. Through a separate left lower quadrant stab wound incision, Alejandro-Jackson drain was left in the pelvis and secured to the skin using 2-0 nylon. Abdominal cavity was closed and mass closure fascia using 1. Maxon suture. Skin incision was closed using interrupted inverted widely spaced 3-0 Vicryl sutures followed by skin edwin. 0.5% Marcaine wound infiltration was then performed. Dressings and ABD pad applied at completion. Sponge, needle, and instrument counts reported correct. Patient tolerated the procedure well and emerged from anesthesia stable condition. EBL minimal
[2023-12-04] MEDS: HYDROmorphone HCl 0.5 MG/0.5 ML SYRINGE IVPUSH ×3 (16:10→16:25)
[2023-12-04] MEDS: droPERidol 5 MG/2 ML VIAL 0.625 MG IVPUSH (16:23)
[2023-12-04] MEDS: Lactated Ringers 1,000 ML 80 ML IVCONT (17:33)
[2023-12-04] MEDS: levoFLOXacin/D5W 500 MG/100 ML PIGGYBACK 100 MG IV (17:35)
[2023-12-04] MEDS: LORazepam 1 MG TABLET PO (20:10)
[2023-12-04] MEDS: Atorvastatin Calcium 20 MG TABLET PO (20:10)
[2023-12-04] MEDS: Mirtazapine 15 MG TABLET PO (20:10)
[2023-12-05] MEDS: Heparin Sodium,Porcine 5,000 UNIT/ML VIAL 5000 UNIT SUBCUT ×3 (03:14→20:49)
[2023-12-05] MEDS: ondansetron HCL 4 MG/2 ML VIAL IVPUSH (03:25)
[2023-12-05 03:26] VITALS: BP 140/70; PULSE 90; RESP 18; TEMP 36.4; O2SAT 98
[2023-12-05] MEDS: HYDROmorphone HCl 2 MG/ML VIAL IVPUSH ×6 (03:26→22:17)
[2023-12-05] MEDS: Acetaminophen 1,000 MG/100 ML PIGGYBACK 400 MG IV ×3 (05:19→17:41)
[2023-12-05] MEDS: metroNIDAZOLE/NS 500 MG/100 ML PIGGYBACK 100 MG IV ×3 (05:49→22:20)
[2023-12-05 06:36] VITALS: RESP 20
[2023-12-05 06:49] LABS: Anion Gap 20 (12-20); Blood Urea Nitrogen 7 mg/dL (9-16); Calcium 8.1 mg/dL (8.4-10.2); Carbon Dioxide 16 mmol/L (22-29); Chloride 108 mmol/L (96-108); Creatinine Clr Calc Pharmacy 95.2; Estimated Glomerular Filt Rate > 60; Glucose Fasting 109 mg/dL (60-99); Magnesium 1.9 mg/dL (1.6-2.6); Potassium 5.1 mmol/L (3.3-5.1); Sodium 139 mmol/L (135-145)
[2023-12-05 06:51] LABS: Hematocrit 32.1 % (37.0-47.0); Hemoglobin 10.4 g/dl (12.0-16.0); Mean Corpuscular HGB Conc 32.4 g/dl (31.0-35.0); Mean Corpuscular Hemoglobin 29.4 pg (27.0-33.0); Mean Corpuscular Volume 90.7 fL (80.0-98.0); Mean Platelet Volume 10.2 fL (9.4-12.3); Platelet Count 183 X10*3/uL (160-400); Red Blood Count 3.54 X10*6/uL (4.20-5.50); Red Cell Distribution Width 15.3 % (11.0-16.0); White Blood Count 12.6 X10*3/uL (4.8-10.8)
[2023-12-05] MEDS: Lactated Ringers 1,000 ML 80 ML IVCONT ×2 (07:05→21:00)
[2023-12-05 07:26] VITALS: BP 119/58; PULSE 82; RESP 18; TEMP 36.8; O2SAT 98
[2023-12-05] MEDS: Magnesium Oxide 400 MG TABLET PO ×2 (09:10→16:32)
[2023-12-05] MEDS: Losartan Potassium 25 MG TABLET PO (09:10)
[2023-12-05] MEDS: Potassium Chloride ER 10 MEQ TABLET.ER PO (09:10)
[2023-12-05] MEDS: carvediloL 6.25 MG TABLET PO ×2 (09:10→20:49)
--- NOTE | 2023-12-05 09:10 | HO.PM.IMPN ---
Subjective Subjective Date of Service: 12/05/23 Interval History: some surgical site pain Physical Exam Vital Signs: Vital Signs: Last Vital Signs Temp 98.3 F 12/05/23 07:26 Pulse 82 12/05/23 07:26 Resp 18 12/05/23 07:26 BP 119/58 L 12/05/23 07:26 Pulse Ox 98 12/05/23 07:26 O2 Del Method Room Air 12/05/23 07:26 O2 Flow Rate 2 12/04/23 17:05 BMI result Body Mass Index 26.4 General: AO X 3, no acute distress Resp: CTA bilateral, no accessory muscles used CVS: S1,S2,RRR Neuro: motor grossly intact, alert Psych: appropriate affect, appropriate insight Objective Data Active Medications Al Hydroxide/Mg Hydroxide (Magnesium Hydrox/Alum Hydrox 30 Ml Oral.Susp) 30 ml PO Q4H PRN PRN Reason: Heartburn/Nausea Atorvastatin Calcium (Atorvastatin Calcium 20 Mg Tablet) 20 mg PO BEDTIME [facility] Last Admin: 12/04/23 20:10 Dose: 20 mg Documented By: VESNA Carvedilol (Carvedilol 6.25 Mg Tablet) 6.25 mg PO BID [facility]; Protocol Last Admin: 12/04/23 20:10 Dose: 6.25 mg Documented By: VESNA Heparin Sodium (Porcine) (Heparin Sodium,Porcine 5,000 Unit/Ml Vial) 5,000 unit SUBCUT Q8H [facility] Last Admin: 12/05/23 03:14 Dose: 5,000 unit Documented By: GUERDA Hydromorphone HCl (Hydromorphone Hcl 4 Mg Tablet) 4 mg PO Q4H PRN PRN Reason: Pain, Moderate(Pain Scale 4-6) Last Admin: 12/01/23 08:29 Dose: 4 mg Documented By: DOBROB Hydromorphone HCl (Hydromorphone Hcl 2 Mg/Ml Vial) 2 mg IVPUSH Q4H PRN; Protocol PRN Reason: Pain, Severe (Pain Scale 7-10) Last Admin: 12/05/23 06:36 Dose: 2 mg Documented By: GUERDA Metronidazole (Flagyl) 500 mg in 100 mls @ 100 mls/hr IV Q8H [facility] Last Infusion: 12/05/23 06:50 Dose: Infused Documented By: GUERDA Levofloxacin (Levaquin) 500 mg in 100 mls @ 100 mls/hr IV Q24H [facility] Last Infusion: 12/04/23 19:07 Dose: Infused Documented By: VESNA Acetaminophen (Ofirmev) 1,000 mg in 100 mls @ 400 mls/hr IV Q6H [facility] Last Infusion: 12/05/23 05:34 Dose: Infused Documented By: GUERDA Lactated Ringer's (Lr) 1,000 mls @ 80 mls/hr IVCONT .[id number] [facility] Last Admin: 12/05/23 07:05 Dose: 80 mls/hr Documented By: GUERDA Promethazine HCl 12.5 mg/ (Sodium Chloride) 50.5 mls @ 202 mls/hr IV Q6H PRN PRN Reason: Nausea Lorazepam (Lorazepam 1 Mg Tablet) 1 mg PO BEDTIME [facility] Last Admin: 12/04/23 20:10 Dose: 1 mg Documented By: VESNA Losartan Potassium (Losartan Potassium 25 Mg Tablet) 25 mg PO DAILY [facility]; Protocol Last Admin: 12/04/23 07:59 Dose: 25 mg Documented By: CALI Magnesium Oxide (Magnesium Oxide 400 Mg Tablet) 400 mg PO BIDPC [facility] Last Admin: 12/04/23 17:37 Dose: Not Given Documented By: VESNA Non-Admin Reason: pt too nauseuous, cannot swallow right now Mirtazapine (Mirtazapine 15 Mg Tablet) 15 mg PO BEDTIME [facility] Last Admin: 12/04/23 20:10 Dose: 15 mg Documented By: VESNA Ondansetron HCl (Ondansetron Hcl 4 Mg/2 Ml Vial) 4 mg IVPUSH Q8H PRN PRN Reason: Nausea and Vomiting Last Admin: 12/05/23 03:25 Dose: 4 mg Documented By: GUERDA Potassium Chloride (Potassium Chloride Er 10 Meq Tablet.Er) 10 meq PO BID [facility] Last Admin: 12/04/23 19:39 Dose: Not Given Documented By: VESNA Non-Admin Reason: Patient Refused Sodium Chloride (0.9 % Sodium Chloride Flush 3 Ml Syringe) 3 ml IVFLUSH QSHIFT [facility] Last Admin: 12/05/23 07:12 Dose: Not Given Documented By: HOLDEN Non-Admin Reason: See Note Zinc Oxide (Zinc Oxide 20% Ointment 28.35 Gm Tube) 1 appl TOPICAL DAILY [facility]; Protocol Last Admin: 12/04/23 10:21 Dose: 1 appl Documented By: CALI Labs 12/05/23 05:57 12/05/23 05:57 Labs: Laboratory Results - last 24 hr 12/04/23 12/05/23 11:11 05:57 MCV 90.7 MCH 29.4 MCHC 32.4 RDW 15.3 Plt Count 183 MPV 10.2 Absolute Nucleated RBC 0.000 Nucleated RBC % (auto) 0.0 Anion Gap 20 Estim Creat Clear Calc 95.2 Estimated GFR > 60 Fasting Glucose 109 H Calcium 8.1 L Magnesium 1.9 Blood Type O Positive Antibody Screen NEGATIVE Assessment and Plan (1) History of colostomy reversal: Status: Acute Plan 63F PMH gerd with barretts esophagus, diverticulitis requiring colostomy 05/2023 complicated by colovesicular fistula, nonischemic cardiomyopathy with recovered EF, s/p ostomy reversal, complicated by vaginal-colonic fistula, now s/p repair and ileostomy vaginal colonic fistula management per primary team - s/p ileostomy on empiric levaquin/flagyl, if no further concerns for possible infection, would discontinue acute hypomagnesemia, hypokalemia replaced history of stress induced cardiomyopathy now with recovered EF continue coreg, losartan barretts ppi thank you for consultation, will sign off for now, please recall if needed Quality Stroke Does the patient have a stroke diagnosis?: No VTE Prior VTE?: No VTE Risk Level:: Surgical - high VTE Device Contraindication: N/A - Device Ordered VTE Drug Contraindication: N/A - Med Ordered
[2023-12-05] MEDS: Zinc Oxide 20% Ointment 28.35 GM TUBE 1 APPL TOPICAL (09:11)
--- NOTE | 2023-12-05 10:40 | P.PNGS_ITS ---
Subjective Subjective Date of Service: 12/05/23 Interval history: Tearful this morning. Reports severe incisional pain. Passing flatus and some output via ostomy. Stood up this morning with walker. Refusing perez to come out. Physical Exam 2 Vital Signs: Vital Signs: Last Vital Signs Temp 98.3 F 12/05/23 07:26 Pulse 82 12/05/23 07:26 Resp 18 12/05/23 07:26 BP 119/58 L 12/05/23 07:26 Pulse Ox 98 12/05/23 07:26 O2 Del Method Room Air 12/05/23 07:26 O2 Flow Rate 2 12/04/23 17:05 BMI result Body Mass Index 26.4 Const: General: comfortable, no acute distress and alert O rientation/consciousness: patient oriented x3 GI: Other: MIKI serosanguineous ostomy pink, scant enteric output Inspection: Yes incision (dressing intact ) Palpation (GI): Soft to palpation, Tenderness to palpation present (GI) (incisional) and no guarding Skin: General skin exam: no rashes or lesions noted Neuro: General: patient oriented x3 and moves all extremities Objective Data Active Medications Al Hydroxide/Mg Hydroxide (Magnesium Hydrox/Alum Hydrox 30 Ml Oral.Susp) 30 ml PO Q4H PRN PRN Reason: Heartburn/Nausea Atorvastatin Calcium (Atorvastatin Calcium 20 Mg Tablet) 20 mg PO BEDTIME [facility] Last Admin: 12/04/23 20:10 Dose: 20 mg Documented By: VESNA Carvedilol (Carvedilol 6.25 Mg Tablet) 6.25 mg PO BID [facility]; Protocol Last Admin: 12/05/23 09:10 Dose: 6.25 mg Documented By: HOLDEN Heparin Sodium (Porcine) (Heparin Sodium,Porcine 5,000 Unit/Ml Vial) 5,000 unit SUBCUT Q8H [facility] Last Admin: 12/05/23 10:13 Dose: 5,000 unit Documented By: HOLDEN Hydromorphone HCl (Hydromorphone Hcl 4 Mg Tablet) 4 mg PO Q4H PRN PRN Reason: Pain, Moderate(Pain Scale 4-6) Last Admin: 12/01/23 08:29 Dose: 4 mg Documented By: DOBROB Hydromorphone HCl (Hydromorphone Hcl 2 Mg/Ml Vial) 2 mg IVPUSH Q4H PRN; Protocol PRN Reason: Pain, Severe (Pain Scale 7-10) Last Admin: 12/05/23 10:33 Dose: 2 mg Documented By: HOLDEN Metronidazole (Flagyl) 500 mg in 100 mls @ 100 mls/hr IV Q8H [facility] Last Infusion: 12/05/23 06:50 Dose: Infused Documented By: GUERDA Levofloxacin (Levaquin) 500 mg in 100 mls @ 100 mls/hr IV Q24H [facility] Last Infusion: 12/04/23 19:07 Dose: Infused Documented By: VESNA Acetaminophen (Ofirmev) 1,000 mg in 100 mls @ 400 mls/hr IV Q6H [facility] Last Infusion: 12/05/23 10:29 Dose: Infused Documented By: HOLDEN Lactated Ringer's (Lr) 1,000 mls @ 80 mls/hr IVCONT .[id number] [facility] Last Admin: 12/05/23 07:05 Dose: 80 mls/hr Documented By: GUERDA Promethazine HCl 12.5 mg/ (Sodium Chloride) 50.5 mls @ 202 mls/hr IV Q6H PRN PRN Reason: Nausea Lorazepam (Lorazepam 1 Mg Tablet) 1 mg PO BEDTIME [facility] Last Admin: 12/04/23 20:10 Dose: 1 mg Documented By: VESNA Losartan Potassium (Losartan Potassium 25 Mg Tablet) 25 mg PO DAILY [facility]; Protocol Last Admin: 12/05/23 09:10 Dose: 25 mg Documented By: HOLDEN Magnesium Oxide (Magnesium Oxide 400 Mg Tablet) 400 mg PO BIDPC [facility] Last Admin: 12/05/23 09:10 Dose: 400 mg Documented By: HOLDEN Mirtazapine (Mirtazapine 15 Mg Tablet) 15 mg PO BEDTIME [facility] Last Admin: 12/04/23 20:10 Dose: 15 mg Documented By: VESNA Ondansetron HCl (Ondansetron Hcl 4 Mg/2 Ml Vial) 4 mg IVPUSH Q8H PRN PRN Reason: Nausea and Vomiting Last Admin: 12/05/23 03:25 Dose: 4 mg Documented By: GUERDA Sodium Chloride (0.9 % Sodium Chloride Flush 3 Ml Syringe) 3 ml IVFLUSH QSHIFT [facility] Last Admin: 12/05/23 07:12 Dose: Not Given Documented By: HOLDEN Non-Admin Reason: See Note Zinc Oxide (Zinc Oxide 20% Ointment 28.35 Gm Tube) 1 appl TOPICAL DAILY [facility]; Protocol Last Admin: 12/05/23 09:11 Dose: 1 appl Documented By: HOLDEN Labs 12/05/23 05:57 12/05/23 05:57 Labs: Laboratory Results - last 24 hr 12/04/23 12/05/23 11:11 05:57 MCV 90.7 MCH 29.4 MCHC 32.4 RDW 15.3 Plt Count 183 MPV 10.2 Absolute Nucleated RBC 0.000 Nucleated RBC % (auto) 0.0 Anion Gap 20 Estim Creat Clear Calc 95.2 Estimated GFR > 60 Fasting Glucose 109 H Calcium 8.1 L Magnesium 1.9 Blood Type O Positive Antibody Screen NEGATIVE Procedures Date of Service Date of Service: 12/05/23 Progress Note: A&P Assessment and plan (1) History of colostomy reversal: Status: Acute (2) Colovaginal fistula: Status: Acute (3) Ileostomy in place: Status: Acute Plan Underwent end colostomy reversal 11/30/23 and was found to have anastomotic dysfunction over the weekend requiring anastomic revision. Now POD #1 exploratory laparotomy, takedown of colo -posterior fornix vaginal anastomosis, flexible sigmoidoscopy, EEA colorectal anastomosis, temporary loop ileostomy. Doing fairly well post op. VSS. Abd with c/d/i dressing, ileostomy viable appearing with flatus and some output, MIKI output serosanguineous. AM labs reviewed. Discussed getting OOB/ambulating today but she is not ready but is willing to sit up on edge of bed and dangle feet. Also refusing perez catheter removal. Can continue clear liquids for now, IVF, pain control. Time Spent With Patient Time: Total time managing care of this patient today ____ minutes. Quality Stroke Does the patient have a stroke diagnosis?: No VTE Prior VTE?: No VTE Risk Level:: Surgical - high VTE Device Contraindication: N/A - Device Ordered VTE Drug Contraindication: N/A - Med Ordered
--- NOTE | 2023-12-05 11:39 | HO.POSTANES ---
Post Anesthesia Evaluation Post Anesthesia Evaluation Date of Service: 12/05/23 Vital Signs: Vital Signs Temp Pulse Resp BP Pulse Ox O2 Del Method 12/05/23 07:26 98.3 F 82 18 119/58 L 98 Room Air 12/05/23 06:36 20 12/05/23 03:26 97.5 F 90 18 140/70 H 98 Room Air Anesthesia: General Endotracheal-GETA Mental Status: Awake Pain Control: Satisfactory (severe pain) Nausea/Vomiting: Mild Hydration: Adequate Anesthesia-Related Issues: No Anes. Related Issues
[2023-12-05 15:25] VITALS: BP 110/59; PULSE 83; RESP 16; TEMP 36.6; O2SAT 98
[2023-12-05] MEDS: levoFLOXacin/D5W 500 MG/100 ML PIGGYBACK 100 MG IV (16:32)
[2023-12-05 19:31] VITALS: BP 108/57; PULSE 95; RESP 18; TEMP 37; O2SAT 97
[2023-12-05] MEDS: Atorvastatin Calcium 20 MG TABLET PO (20:48)
[2023-12-05] MEDS: LORazepam 1 MG TABLET PO (20:48)
[2023-12-05] MEDS: Mirtazapine 15 MG TABLET PO (20:49)
[2023-12-05] MEDS: 0.9 % Sodium Chloride Flush 3 ML SYRINGE IVFLUSH (20:50)
--- NOTE | 2023-12-05 21:00 | PC.NURSE ---
Assumed care of patient at 19:00. Pt is A&Ox4. Pt c/o 05/14 abdominal pain at loop ileostomy and midline incision sites. Pt offered prn po dilaudid which pt refused, stated I don't take oral pain medicine, only sometimes at home. I wait for the IV stuff . Covering Dr. Perrin notified. No distress noted at this time. Pt resting in bed watching tv quietly, breathing even and unlabored without distress on RA.
--- NOTE | 2023-12-05 23:45 | PC.NURSE ---
Pt reporting 7/10 pain on prn dilaudid reassessment task. Pt unable to receive scheduled IV tylenol due as per the NOV pt has recieved the max dose allowed within the last 24hrs. Pain medication options were discussed by medical underwriter this evening, including longer-lasting benefit of ordered prn PO pain medications versus IV, however pt is refusing po pain medications and states she does not take pain medications by mouth. Covering Dr. Jarvis made aware, order placed for additional 1x dilaudid. BP soft on evening vitals earlier so BP was re-rechecked prior to administration of extra dilaudid dose, recheck was 107/61 HR 73, pt asymptomatic.
[2023-12-05 23:49] VITALS: BP 107/61; PULSE 73; RESP 16; TEMP 36; O2SAT 99
[2023-12-06] VITALS (8 sets, daily range): BP systolic 130–140; BP diastolic 63–80; PULSE 77–97; RESP 16–18; TEMP 36–36.6; O2SAT 97–98
[2023-12-06] MEDS: HYDROmorphone HCl 2 MG/ML VIAL 1.5 MG IVPUSH (00:01)
[2023-12-06] MEDS: Heparin Sodium,Porcine 5,000 UNIT/ML VIAL 5000 UNIT SUBCUT ×3 (04:13→20:26)
[2023-12-06] MEDS: HYDROmorphone HCl 2 MG/ML VIAL IVPUSH ×5 (04:13→21:43)
[2023-12-06] MEDS: Pantoprazole Sodium 40 MG/10 ML VIAL IVPUSH (05:20)
[2023-12-06] MEDS: metroNIDAZOLE/NS 500 MG/100 ML PIGGYBACK 100 MG IV (05:20)
[2023-12-06] MEDS: Acetaminophen 1,000 MG/100 ML PIGGYBACK 400 MG IV ×3 (05:21→16:18)
[2023-12-06] MEDS: Lactated Ringers 1,000 ML 80 ML IVCONT ×3 (05:24→23:35)
[2023-12-06 07:05] LABS: Hematocrit 26.4 % (37.0-47.0); Hemoglobin 8.5 g/dl (12.0-16.0); Mean Corpuscular HGB Conc 32.2 g/dl (31.0-35.0); Mean Corpuscular Hemoglobin 28.9 pg (27.0-33.0); Mean Corpuscular Volume 89.8 fL (80.0-98.0); Mean Platelet Volume 9.5 fL (9.4-12.3); Platelet Count 250 X10*3/uL (160-400); Red Blood Count 2.94 X10*6/uL (4.20-5.50); Red Cell Distribution Width 15.9 % (11.0-16.0)
[2023-12-06] MEDS: Magnesium Oxide 400 MG TABLET PO ×2 (07:39→16:18)
[2023-12-06] MEDS: carvediloL 6.25 MG TABLET PO ×2 (07:39→20:25)
[2023-12-06] MEDS: Losartan Potassium 25 MG TABLET PO (07:39)
[2023-12-06] MEDS: 0.9 % Sodium Chloride Flush 3 ML SYRINGE IVFLUSH ×3 (07:40→20:25)
[2023-12-06 07:53] LABS: Alanine Aminotransferase 24 U/L (0-31); Albumin Level 2.3 g/dL (3.5-5.0); Alkaline Phosphatase 116 U/L (39-117); Anion Gap 11 (12-20); Aspartate Amino Transferase 21 U/L (5-31); Bilirubin Direct 0.1 mg/dL (0.0-0.5); Bilirubin Total 0.3 mg/dL (0.0-1.0); Blood Urea Nitrogen 9 mg/dL (9-16); Calcium 7.8 mg/dL (8.4-10.2); Carbon Dioxide 28 mmol/L (22-29); Chloride 104 mmol/L (96-108); Creatinine Clr Calc Pharmacy 102.9; Estimated Glomerular Filt Rate > 60; Glucose Fasting 99 mg/dL (60-99); Magnesium 1.8 mg/dL (1.6-2.6); Potassium 3.7 mmol/L (3.3-5.1); Sodium 139 mmol/L (135-145); Total Protein 5.8 g/dL (6.5-8.0)
--- NOTE | 2023-12-06 10:01 | PM.PNGS ---
Subjective Subjective Date of Service: 12/06/23 Interval history: Feels improved this morning. Still c/o severe pain necessitating IV analgesics but comfortable and willing to get OOB this morning. Tolerating solid diet without nausea or vomiting. Ostomy with liquid output. Physical Exam Vital Signs: Vital Signs: Last Vital Signs Temp 97.9 F 12/06/23 07:22 Pulse 80 12/06/23 07:22 Resp 17 12/06/23 07:22 BP 130/74 12/06/23 07:22 Pulse Ox 98 12/06/23 07:22 O2 Del Method Room Air 12/06/23 07:22 O2 Flow Rate 2 12/04/23 17:05 BMI result Body Mass Index 26.4 Const: General: comfortable, no acute distress and alert Orientation/consciousness: patient oriented x3 Resp: Effort & Inspection: normal respiratory effort GI: Other: MIKI with serosanguineous output ostomy viable appearing with bilious output Inspection: No distended and Yes incision (clean, wound edwin advanced ) Palpation (GI): Soft to palpation, Tenderness to palpation present (GI) (incisional), no guarding and not rigid Skin: General skin exam: no rashes or lesions noted Neuro: General: patient oriented x3 and moves all extremities Objective Data Active Medications Al Hydroxide/Mg Hydroxide (Magnesium Hydrox/Alum Hydrox 30 Ml Oral.Susp) 30 ml PO Q4H PRN PRN Reason: Heartburn/Nausea Atorvastatin Calcium (Atorvastatin Calcium 20 Mg Tablet) 20 mg PO BEDTIME [facility] Last Admin: 12/05/23 20:48 Dose: 20 mg Documented By: ABHIJIT Carvedilol (Carvedilol 6.25 Mg Tablet) 6.25 mg PO BID [facility]; Protocol Last Admin: 12/06/23 07:39 Dose: 6.25 mg Documented By: PAMELA Heparin Sodium (Porcine) (Heparin Sodium,Porcine 5,000 Unit/Ml Vial) 5,000 unit SUBCUT Q8H [facility] Last Admin: 12/06/23 04:13 Dose: 5,000 unit Documented By: ABHIJIT Hydromorphone HCl (Hydromorphone Hcl 4 Mg Tablet) 4 mg PO Q4H PRN PRN Reason: Pain, Moderate(Pain Scale 4-6) Last Admin: 12/01/23 08:29 Dose: 4 mg Documented By: BROJackie Hydromorphone HCl (Hydromorphone Hcl 2 Mg/Ml Vial) 2 mg IVPUSH Q4H PRN; Protocol PRN Reason: Pain, Severe (Pain Scale 7-10) Last Admin: 12/06/23 08:59 Dose: 2 mg Documented By: PAMELA Metronidazole (Flagyl) 500 mg in 100 mls @ 100 mls/hr IV Q8H [facility] Last Infusion: 12/06/23 06:20 Dose: Infused Documented By: ABHIJIT Levofloxacin (Levaquin) 500 mg in 100 mls @ 100 mls/hr IV Q24H [facility] Last Infusion: 12/05/23 17:33 Dose: Infused Documented By: HOLDEN Acetaminophen (Ofirmev) 1,000 mg in 100 mls @ 400 mls/hr IV Q6H [facility] Last Infusion: 12/06/23 05:36 Dose: Infused Documented By: ABHIJIT Lactated Ringer's (Lr) 1,000 mls @ 80 mls/hr IVCONT .[id number] [facility] Last Admin: 12/06/23 05:24 Dose: 80 mls/hr Documented By: ABHIJIT Promethazine HCl 12.5 mg/ (Sodium Chloride) 50.5 mls @ 202 mls/hr IV Q6H PRN PRN Reason: Nausea Lorazepam (Lorazepam 1 Mg Tablet) 1 mg PO BEDTIME [facility] Last Admin: 12/05/23 20:48 Dose: 1 mg Documented By: ABHIJIT Losartan Potassium (Losartan Potassium 25 Mg Tablet) 25 mg PO DAILY [facility]; Protocol Last Admin: 12/06/23 07:39 Dose: 25 mg Documented By: PAMELA Magnesium Oxide (Magnesium Oxide 400 Mg Tablet) 400 mg PO BIDPC [facility] Last Admin: 12/06/23 07:39 Dose: 400 mg Documented By: PAMELA Mirtazapine (Mirtazapine 15 Mg Tablet) 15 mg PO BEDTIME [facility] Last Admin: 12/05/23 20:49 Dose: 15 mg Documented By: ABHIJIT Ondansetron HCl (Ondansetron Hcl 4 Mg/2 Ml Vial) 4 mg IVPUSH Q8H PRN PRN Reason: Nausea and Vomiting Last Admin: 12/05/23 03:25 Dose: 4 mg Documented By: GUERDA Pantoprazole Sodium (Pantoprazole Sodium 40 Mg/10 Ml Vial) 40 mg IVPUSH DAILY@0630 [facility] Last Admin: 12/06/23 05:20 Dose: 40 mg Documented By: ABHIJIT Sodium Chloride (0.9 % Sodium Chloride Flush 3 Ml Syringe) 3 ml IVFLUSH QSHIFT [facility] Last Admin: 12/06/23 07:40 Dose: 3 ml Documented By: PAMELA Zinc Oxide (Zinc Oxide 20% Ointment 28.35 Gm Tube) 1 appl TOPICAL DAILY [facility]; Protocol Last Admin: 12/06/23 07:43 Dose: Not Given Documented By: PAMELA Non-Admin Reason: Patient Refused Labs 12/06/23 05:54 12/06/23 05:54 Labs: Laboratory Results - last 24 hr 12/06/23 05:54 MCV 89.8 MCH 28.9 MCHC 32.2 RDW 15.9 Plt Count 250 D MPV 9.5 Absolute Nucleated RBC 0.000 Nucleated RBC % (auto) 0.0 Anion Gap 11 L Estim Creat Clear Calc 102.9 Estimated GFR > 60 Fasting Glucose 99 Calcium 7.8 L Magnesium 1.8 Total Bilirubin 0.3 Direct Bilirubin 0.1 AST 21 ALT 24 Alkaline Phosphatase 116 Total Protein 5.8 L Albumin 2.3 L Procedures Date of Service Date of Service: 12/06/23 Progress Note: A&P Assessment and plan (1) Ileostomy in place: Status: Acute (2) History of colostomy reversal: Status: Acute Plan Underwent end colostomy reversal 11/30/23 and was found to have anastomotic dysfunction over the weekend requiring anastomic revision. Now POD #2 s/p exploratory laparotomy, takedown of colo -posterior fornix vaginal anastomosis, flexible sigmoidoscopy, EEA colorectal anastomosis, temporary loop ileostomy. Continues to do well post op with good ileostomy output and tolerating solid diet. VSS. Abdomen with appropriate post op tenderness, incision clean with wound edwin in place. Ileostomy viable appearing with bilious output, MIKI output serosanguineous- likely remove tomorrow. Dc perez. DC IVF. Dc abx. Discussed OOB/ambulation today and IS use. She is in agreement. Cont pain control. Time Spent With Patient Time: Total time managing care of this patient today ____ minutes. Quality Stroke Does the patient have a stroke diagnosis?: No VTE Prior VTE?: No VTE Risk Level:: Surgical - high VTE Device Contraindication: N/A - Device Ordered VTE Drug Contraindication: N/A - Med Ordered
--- NOTE | 2023-12-06 13:52 | MHC.CM.PN ---
EMR REVIEWED, PT NOT MEDICALLY CLEARED FOR DC. CM MET WITH PT WHO WAS VERY TEARFUL REGARDING BEING DENIED PFMLA SHE EXHAUSTED THE BENEFIT WITH LAST SURGERY. CM PROVIDED RESOURCE GUIDE TO PT. CM WILL CONTINUE TO FOLLOW FOR ANY CHANGE IN DC PLAN/NEEDS.
--- NOTE | 2023-12-06 17:58 | HO.SKINPHOTO ---
Stephen Victoria made aware pts ostomy is leaking and appliance needed to be changed. Stoma appears pink and moist, surrounding skin intact. Site cleansed, skin prep applied, appliance applied. New appliance is clean and dry and does not appear to have any leaking. PA sent pictures of bag change.
--- NOTE | 2023-12-06 18:08 | PC.NURSE ---
FC was removed this AM at 10:00 pt due to void at 1600. PATIENCE Victoria made aware via tiger text at 1548 that pt voided 35ml of concentrated yellow urine, bladder scanned for 30ml. PO fluids encouraged, PA reordered LR at 80ml/hr. IV infusing as ordered through PICC line.
[2023-12-06] MEDS: LORazepam 1 MG TABLET PO (20:25)
[2023-12-06] MEDS: Mirtazapine 15 MG TABLET PO (20:25)
[2023-12-06] MEDS: Atorvastatin Calcium 20 MG TABLET PO (20:25)
[2023-12-07] MEDS: HYDROmorphone HCl 2 MG/ML VIAL IVPUSH ×2 (01:50→09:36)
[2023-12-07] MEDS: Heparin Sodium,Porcine 5,000 UNIT/ML VIAL 5000 UNIT SUBCUT ×3 (01:56→17:57)
[2023-12-07 02:20] VITALS: RESP 16
[2023-12-07] MEDS: Pantoprazole Sodium 40 MG/10 ML VIAL IVPUSH (06:01)
[2023-12-07] MEDS: ondansetron HCL 4 MG/2 ML VIAL IVPUSH (06:01)
[2023-12-07] MEDS: Acetaminophen 1,000 MG/100 ML PIGGYBACK 400 MG IV ×2 (06:04→11:21)
[2023-12-07 06:20] VITALS: BP 139/73; PULSE 93; RESP 16; TEMP 36.5; O2SAT 97
[2023-12-07 06:34] VITALS: RESP 18
[2023-12-07 07:53] VITALS: BP 135/63; PULSE 83; RESP 17; TEMP 36.3; O2SAT 96
[2023-12-07] MEDS: carvediloL 6.25 MG TABLET PO ×2 (08:06→20:27)
[2023-12-07] MEDS: Losartan Potassium 25 MG TABLET PO (08:06)
[2023-12-07] MEDS: 0.9 % Sodium Chloride Flush 3 ML SYRINGE IVFLUSH (08:08)
[2023-12-07] MEDS: Zinc Oxide 20% Ointment 28.35 GM TUBE 1 APPL TOPICAL (08:10)
[2023-12-07] MEDS: Magnesium Oxide 400 MG TABLET PO ×2 (08:10→17:56)
--- NOTE | 2023-12-07 11:47 | PC.NURSE ---
Approximately 1145- Patient reports pain in right upper arm at PICC line site. Arm is now swollen and red. Skin is cool to touch. IVfluids stopped. PATIENCE Victoria notified. No new orders. Dr. Quan at patient's bedside.
--- NOTE | 2023-12-07 12:23 | P.PNGS_ITS ---
Subjective Subjective Date of Service: 12/07/23 Interval history: PICC line infiltrated this morning. Tolerating diet. Pain controlled. OOB and ambulating. Physical Exam 2 Vital Signs: Vital Signs: Last Vital Signs Temp 97.4 F 12/07/23 07:53 Pulse 83 12/07/23 07:53 Resp 17 12/07/23 07:53 BP 135/63 12/07/23 07:53 Pulse Ox 96 12/07/23 07:53 O2 Del Method Room Air 12/07/23 07:53 O2 Flow Rate 2 12/04/23 17:05 BMI result Body Mass Index 26.4 Const: General: comfortable, no acute distress and alert O rientation/consciousness: patient oriented x3 Resp: Effort & Inspection: normal respiratory effort GI: Other: ostomy pink, bridge in place MIKI in place output scant and serosanguineous Inspection: No distended and Yes incision (wound edwin removed ) P alpation (GI): Soft to palpation, Tenderness to palpation present (GI) (mild incisional) and no guarding Percussion: Yes normal to percussion Skin: General skin exam: no rashes or lesions noted Neuro: General: patient oriented x3 and moves all extremities Objective Data Active Medications Acetaminophen (Acetaminophen 325 Mg Tablet) 650 mg PO Q6H [facility] Al Hydroxide/Mg Hydroxide (Magnesium Hydrox/Alum Hydrox 30 Ml Oral.Susp) 30 ml PO Q4H PRN PRN Reason: Heartburn/Nausea Atorvastatin Calcium (Atorvastatin Calcium 20 Mg Tablet) 20 mg PO BEDTIME [facility] Last Admin: 12/06/23 20:25 Dose: 20 mg Documented By: ABHIJIT Carvedilol (Carvedilol 6.25 Mg Tablet) 6.25 mg PO BID [facility]; Protocol Last Admin: 12/07/23 08:06 Dose: 6.25 mg Documented By: CIRO Heparin Sodium (Porcine) (Heparin Sodium,Porcine 5,000 Unit/Ml Vial) 5,000 unit SUBCUT Q8H [facility] Last Admin: 12/07/23 11:21 Dose: 5,000 unit Documented By: CIRO Hydromorphone HCl (Hydromorphone Hcl 2 Mg/Ml Vial) 2 mg IVPUSH Q4H PRN; Protocol PRN Reason: Pain, Severe (Pain Scale 7-10) Last Admin: 12/07/23 09:36 Dose: 2 mg Documented By: CIRO Hydromorphone HCl (Hydromorphone Hcl 4 Mg Tablet) 4 mg PO Q3H PRN PRN Reason: Pain, Moderate(Pain Scale 4-6) Promethazine HCl 12.5 mg/ (Sodium Chloride) 50.5 mls @ 202 mls/hr IV Q6H PRN PRN Reason: Nausea Lorazepam (Lorazepam 1 Mg Tablet) 1 mg PO BEDTIME [facility] Last Admin: 12/06/23 20:25 Dose: 1 mg Documented By: ABHIJIT Losartan Potassium (Losartan Potassium 25 Mg Tablet) 25 mg PO DAILY [facility]; Protocol Last Admin: 12/07/23 08:06 Dose: 25 mg Documented By: CIRO Magnesium Oxide (Magnesium Oxide 400 Mg Tablet) 400 mg PO BIDPC [facility] Last Admin: 12/07/23 08:10 Dose: 400 mg Documented By: CIRO Mirtazapine (Mirtazapine 15 Mg Tablet) 15 mg PO BEDTIME [facility] Last Admin: 12/06/23 20:25 Dose: 15 mg Documented By: ABHIJIT Ondansetron HCl (Ondansetron Odt 8 Mg Tab.Rapdis) 8 mg TRANSLINGU Q8H PRN PRN Reason: Nausea and Vomiting Pantoprazole Sodium (Pantoprazole Sodium 40 Mg/10 Ml Vial) 40 mg IVPUSH DAILY@0630 [facility] Last Admin: 12/07/23 06:01 Dose: 40 mg Documented By: ABHIJIT Sodium Chloride (0.9 % Sodium Chloride Flush 3 Ml Syringe) 3 ml IVFLUSH QSHIFT [facility] Last Admin: 12/07/23 08:08 Dose: 3 ml Documented By: CIRO Comments: Administered via 10mL flush. Zinc Oxide (Zinc Oxide 20% Ointment 28.35 Gm Tube) 1 appl TOPICAL DAILY [facility]; Protocol Last Admin: 12/07/23 08:10 Dose: 1 appl Documented By: CIRO Labs 12/06/23 05:54 12/06/23 05:54 Procedures Date of Service Date of Service: 12/07/23 Progress Note: A&P Assessment and plan (1) Ileostomy in place: Status: Acute (2) History of colostomy reversal: Status: Acute Plan Underwent end colostomy reversal 11/30/23 and was found to have anastomotic dysfunction over the weekend requiring anastomic revision. Now POD #3 s/p exploratory laparotomy, takedown of colo -posterior fornix vaginal anastomosis, flexible sigmoidoscopy, EEA colorectal anastomosis, temporary loop ileostomy. Continues to do well post op with good ileostomy output and tolerating solid diet. VSS. Abdomen with appropriate post op tenderness, incision clean, wound edwin removed. Ileostomy functioning well. WIll remove bridge tomorrow. MIKI removed. Remove PICC line, transition to oral analgesics. Increase activity. Time Spent With Patient Time: Total time managing care of this patient today ____ minutes. Quality Stroke Does the patient have a stroke diagnosis?: No VTE Prior VTE?: No VTE Risk Level:: Surgical - high VTE Device Contraindication: N/A - Device Ordered VTE Drug Contraindication: N/A - Med Ordered
[2023-12-07 15:10] VITALS: BP 156/71; PULSE 85; RESP 18; TEMP 36.4; O2SAT 96
[2023-12-07] MEDS: Acetaminophen 325 MG TABLET 650 MG PO (17:56)
[2023-12-07 19:17] VITALS: BP 133/66; PULSE 88; RESP 18; TEMP 36.4; O2SAT 97
[2023-12-07] MEDS: Ondansetron ODT 8 MG TAB.RAPDIS TRANSLINGU (19:26)
[2023-12-07] MEDS: Mirtazapine 15 MG TABLET PO (20:27)
[2023-12-07] MEDS: LORazepam 1 MG TABLET PO (20:27)
[2023-12-07] MEDS: Atorvastatin Calcium 20 MG TABLET PO (20:27)
[2023-12-08] MEDS: Acetaminophen 325 MG TABLET 650 MG PO ×3 (00:36→11:47)
[2023-12-08] MEDS: Heparin Sodium,Porcine 5,000 UNIT/ML VIAL 5000 UNIT SUBCUT ×3 (02:26→18:39)
[2023-12-08 03:23] VITALS: BP 134/63; PULSE 75; RESP 16; TEMP 36.3; O2SAT 97
[2023-12-08 07:56] VITALS: BP 142/69; PULSE 74; RESP 16; TEMP 36.2; O2SAT 96
[2023-12-08] MEDS: Losartan Potassium 25 MG TABLET PO (08:05)
[2023-12-08] MEDS: carvediloL 6.25 MG TABLET PO ×2 (08:06→21:11)
[2023-12-08] MEDS: Magnesium Oxide 400 MG TABLET PO ×2 (08:06→16:44)
--- NOTE | 2023-12-08 10:25 | PM.PNGS ---
Subjective Subjective Date of Service: 12/08/23 Interval history: Patient is doing well. She has minimal incisional discomfort. She is tolerating her diet. She has been out of bed and using her incentive spirometer. Physical Exam Vital Signs: Vital Signs: Last Vital Signs Temp 97.1 F 12/08/23 07:56 Pulse 74 12/08/23 07:56 Resp 16 12/08/23 07:56 BP 142/69 H 12/08/23 07:56 Pulse Ox 96 12/08/23 07:56 O2 Del Method Room Air 12/08/23 07:56 O2 Flow Rate 2 12/04/23 17:05 BMI result Body Mass Index 26.4 GI: Other: Abdomen is soft. Ostomy was working well. Bar was removed. Midline incision healing uneventfully. Partially open and draining serous fluid, as expected. Objective Data Active Medications Acetaminophen (Acetaminophen 325 Mg Tablet) 650 mg PO Q6H [facility] Last Admin: 12/08/23 06:10 Dose: 650 mg Documented By: BRET Al Hydroxide/Mg Hydroxide (Magnesium Hydrox/Alum Hydrox 30 Ml Oral.Susp) 30 ml PO Q4H PRN PRN Reason: Heartburn/Nausea Atorvastatin Calcium (Atorvastatin Calcium 20 Mg Tablet) 20 mg PO BEDTIME [facility] Last Admin: 12/07/23 20:27 Dose: 20 mg Documented By: BRET Carvedilol (Carvedilol 6.25 Mg Tablet) 6.25 mg PO BID [facility]; Protocol Last Admin: 12/08/23 08:06 Dose: 6.25 mg Documented By: CIRO Heparin Sodium (Porcine) (Heparin Sodium,Porcine 5,000 Unit/Ml Vial) 5,000 unit SUBCUT Q8H [facility] Last Admin: 12/08/23 02:26 Dose: 5,000 unit Documented By: BRET Hydromorphone HCl (Hydromorphone Hcl 2 Mg/Ml Vial) 2 mg IVPUSH Q4H PRN; Protocol PRN Reason: Pain, Severe (Pain Scale 7-10) Last Admin: 12/07/23 09:36 Dose: 2 mg Documented By: CIRO Hydromorphone HCl (Hydromorphone Hcl 4 Mg Tablet) 4 mg PO Q3H PRN PRN Reason: Pain, Moderate(Pain Scale 4-6) Last Admin: 12/08/23 08:05 Dose: 4 mg Documented By: CIRO Promethazine HCl 12.5 mg/ (Sodium Chloride) 50.5 mls @ 202 mls/hr IV Q6H PRN PRN Reason: Nausea Lorazepam (Lorazepam 1 Mg Tablet) 1 mg PO BEDTIME [facility] Last Admin: 12/07/23 20:27 Dose: 1 mg Documented By: BRET Losartan Potassium (Losartan Potassium 25 Mg Tablet) 25 mg PO DAILY [facility]; Protocol Last Admin: 12/08/23 08:05 Dose: 25 mg Documented By: CIRO Magnesium Oxide (Magnesium Oxide 400 Mg Tablet) 400 mg PO BIDPC [facility] Last Admin: 12/08/23 08:06 Dose: 400 mg Documented By: CIRO Mirtazapine (Mirtazapine 15 Mg Tablet) 15 mg PO BEDTIME [facility] Last Admin: 12/07/23 20:27 Dose: 15 mg Documented By: BRET Ondansetron HCl (Ondansetron Odt 8 Mg Tab.Rapdis) 8 mg TRANSLINGU Q8H PRN PRN Reason: Nausea and Vomiting Pantoprazole Sodium (Pantoprazole Sodium 40 Mg/10 Ml Vial) 40 mg IVPUSH DAILY@0630 [facility] Last Admin: 12/08/23 06:13 Dose: Not Given Documented By: BRET Non-Admin Reason: No Access Sodium Chloride (0.9 % Sodium Chloride Flush 3 Ml Syringe) 3 ml IVFLUSH QSHIFT [facility] Last Admin: 12/08/23 08:06 Dose: Not Given Documented By: CIRO Non-Admin Reason: No Access Zinc Oxide (Zinc Oxide 20% Ointment 28.35 Gm Tube) 1 appl TOPICAL DAILY [facility]; Protocol Last Admin: 12/08/23 08:07 Dose: Not Given Documented By: CIRO Non-Admin Reason: Patient Refused Labs 12/06/23 05:54 12/06/23 05:54 Procedures Date of Service Date of Service: 12/08/23 Progress Note: A&P Assessment and plan (1) Postop check: Status: Acute (2) Ileostomy in place: Status: Acute Plan Patient overall doing well. Wishes to be discharged tomorrow because she lives alone and has immediate help available. We will have ostomy nurse the patient as well for supplies. Discharge instructions etc. filled then Time Spent With Patient Time: Total time managing care of this patient today ____ minutes. Quality Stroke Does the patient have a stroke diagnosis?: No VTE Prior VTE?: No VTE Risk Level:: Surgical - high VTE Device Contraindication: N/A - Device Ordered VTE Drug Contraindication: N/A - Med Ordered
[2023-12-08 15:31] VITALS: BP 132/67; PULSE 77; RESP 18; TEMP 36.4; O2SAT 95
[2023-12-08 19:57] VITALS: BP 138/67; PULSE 82; RESP 18; TEMP 36.7; O2SAT 96
[2023-12-08] MEDS: LORazepam 1 MG TABLET PO (21:11)
[2023-12-08] MEDS: Atorvastatin Calcium 20 MG TABLET PO (21:11)
[2023-12-08] MEDS: Mirtazapine 15 MG TABLET PO (21:11)
[2023-12-09] MEDS: Heparin Sodium,Porcine 5,000 UNIT/ML VIAL 5000 UNIT SUBCUT (03:14)
[2023-12-09 04:00] VITALS: BP 126/65; PULSE 81; RESP 16; TEMP 36.4; O2SAT 97
[2023-12-09 07:03] VITALS: BP 124/58; PULSE 78; RESP 16; TEMP 36.5; O2SAT 96
[2023-12-09] MEDS: Magnesium Oxide 400 MG TABLET PO (08:46)
[2023-12-09] MEDS: Losartan Potassium 25 MG TABLET PO (08:46)
[2023-12-09] MEDS: carvediloL 6.25 MG TABLET PO (08:46)
[2023-12-09] MEDS: Acetaminophen 325 MG TABLET 650 MG PO (08:59)
--- NOTE | 2023-12-09 10:17 | PM.PNGS ---
Subjective Subjective Date of Service: 12/11/23 Interval history: feels well tolerating diet stoma functioning wants to go home Physical Exam Vital Signs: Vital Signs: Last Vital Signs Temp 97.7 F 12/09/23 07:03 Pulse 78 12/09/23 07:03 Resp 16 12/09/23 07:03 BP 124/58 L 12/09/23 07:03 Pulse Ox 96 12/09/23 07:03 O2 Del Method Room Air 12/09/23 07:03 O2 Flow Rate 2 12/04/23 17:05 BMI result Body Mass Index 26.4 Const: General: comfortable and no acute distress Resp: Effort & Inspection: normal respiratory effort Cardio: Rate: regular rate GI: Other: incision on midline clean but with serosanguinous drainage, stoma functioning well Palpation (GI): Soft to palpation, not firm and no guarding Objective Data Active Medications Acetaminophen (Acetaminophen 325 Mg Tablet) 650 mg PO Q6H [facility] Last Admin: 12/09/23 08:59 Dose: 650 mg Documented By: ION Comments: pt. refused med earlier. Al Hydroxide/Mg Hydroxide (Magnesium Hydrox/Alum Hydrox 30 Ml Oral.Susp) 30 ml PO Q4H PRN PRN Reason: Heartburn/Nausea Atorvastatin Calcium (Atorvastatin Calcium 20 Mg Tablet) 20 mg PO BEDTIME [facility] Last Admin: 12/08/23 21:11 Dose: 20 mg Documented By: DIANA Carvedilol (Carvedilol 6.25 Mg Tablet) 6.25 mg PO BID [facility]; Protocol Last Admin: 12/09/23 08:46 Dose: 6.25 mg Documented By: ION Heparin Sodium (Porcine) (Heparin Sodium,Porcine 5,000 Unit/Ml Vial) 5,000 unit SUBCUT Q8H [facility] Last Admin: 12/09/23 03:14 Dose: 5,000 unit Documented By: DIANA Hydromorphone HCl (Hydromorphone Hcl 2 Mg/Ml Vial) 2 mg IVPUSH Q4H PRN; Protocol PRN Reason: Pain, Severe (Pain Scale 7-10) Last Admin: 12/07/23 09:36 Dose: 2 mg Documented By: CIRO Hydromorphone HCl (Hydromorphone Hcl 4 Mg Tablet) 4 mg PO Q3H PRN PRN Reason: Pain, Moderate(Pain Scale 4-6) Last Admin: 12/08/23 16:44 Dose: 4 mg Documented By: CIRO Promethazine HCl 12.5 mg/ (Sodium Chloride) 50.5 mls @ 202 mls/hr IV Q6H PRN PRN Reason: Nausea Lorazepam (Lorazepam 1 Mg Tablet) 1 mg PO BEDTIME [facility] Last Admin: 12/08/23 21:11 Dose: 1 mg Documented By: DIANA Losartan Potassium (Losartan Potassium 25 Mg Tablet) 25 mg PO DAILY [facility]; Protocol Last Admin: 12/09/23 08:46 Dose: 25 mg Documented By: ION Magnesium Oxide (Magnesium Oxide 400 Mg Tablet) 400 mg PO BIDPC [facility] Last Admin: 12/09/23 08:46 Dose: 400 mg Documented By: ION Mirtazapine (Mirtazapine 15 Mg Tablet) 15 mg PO BEDTIME [facility] Last Admin: 12/08/23 21:11 Dose: 15 mg Documented By: DIANA Ondansetron HCl (Ondansetron Odt 8 Mg Tab.Rapdis) 8 mg TRANSLINGU Q8H PRN PRN Reason: Nausea and Vomiting Sodium Chloride (0.9 % Sodium Chloride Flush 3 Ml Syringe) 3 ml IVFLUSH QSHIFT [facility] Last Admin: 12/09/23 08:45 Dose: Not Given Documented By: ION Non-Admin Reason: No Access Zinc Oxide (Zinc Oxide 20% Ointment 28.35 Gm Tube) 1 appl TOPICAL DAILY [facility]; Protocol Last Admin: 12/09/23 09:01 Dose: Not Given Documented By: ION Non-Admin Reason: Patient Refused Labs 12/06/23 05:54 12/06/23 05:54 Procedures Date of Service Date of Service: 12/11/23 Progress Note: A&P Assessment and plan (1) Ileostomy in place: Status: Acute Assessment and Plan: stoma functioning good pain control tolerating diet looks well ok to dc home instructions reviewed with pt visiting nurse angelia - dw caser in ffup with Dr Quan Time Spent With Patient Time: Total time managing care of this patient today ____ minutes. Quality Stroke Does the patient have a stroke diagnosis?: No VTE Prior VTE?: No VTE Risk Level:: Surgical - high VTE Device Contraindication: N/A - Device Ordered VTE Drug Contraindication: N/A - Med Ordered
--- NOTE | 2023-12-09 10:20 | PM.DS ---
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 She had an end-to-end anastomosis, and tolerated the procedure well. However, she started to have stool passing from her vagina on POD 2. She was diagnosed to have inadvertent anastomosis of the colon to the posterior vagina. She underwent laparotomy, takedown of the colovaginal anastomosis, repair of the posterior vaginal wall, end to end anastomosis of the colon to the rectal stump and diverting loop ileostomy with a MIKI drain on 12/04/23. She tolerated the procedure well. She was on clear liquids postop and this was slowly advanced. She started to have ileostomy function on POD 2. Her pain control improved and she was placed on oral Dilaudid. She had significant improved and there were no other events postop. her MIKI drain was removed on POD 4. On the day of her discharge, she was tolerating diet well. her stoma was functioning well and she had stable VS. Status at Discharge Functional status at discharge: independent ambulation Overall status at discharge: patient is not back to baseline Time Attestation Discharge Coordination Time (in mins): 20 min Quality: Safe Use of Opioids Does Pt have an Active Cancer Diagnosis on the Problem List?: No Quality: Stroke Does the patient have a stroke diagnosis?: No Physical Exam Vital Signs: Vital Signs: Last Vital Signs Temp 97.7 F 12/09/23 07:03 Pulse 78 12/09/23 07:03 Resp 16 12/09/23 07:03 BP 124/58 L 12/09/23 07:03 Pulse Ox 96 12/09/23 07:03 O2 Del Method Room Air 12/09/23 07:03 O2 Flow Rate 2 12/04/23 17:05 BMI result Body Mass Index 26.4 Const: General: comfortable and no acute distress Orientation/consciousness: patient oriented x3 Neck: Neck: Yes no lymphadenopathy Resp: Auscultation: clear to auscultation bilaterally Cardio: Rhythm: regular rhythm GI: Other: loop ileostomy in place, fuctioning well; midline incision with some dark serosanguinous drainage Palpation (GI): Soft to palpation, nontender and no guarding Neuro: General: patient oriented x3 Extrem: General: No edema Right upper extremity: edema DS: Data Data Completed and Pending Completed studies during hospitalization [Text1]: Pending at discharge 11/30/23 12:38 Surgical [PTH] Routine Procedures Bypass Sigmoid Colon to Cutaneous, Open Approach (05/04/23) Dilation of Left Ureter with Intraluminal Device, Via Natural or Artificial Opening Endoscopic (05/04/23) Drainage of Pelvic Cavity, Percutaneous Approach (05/04/23) Excision of Sigmoid Colon, Open Approach (05/04/23) Excision of Small Intestine, Open Approach (05/04/23) Fluoroscopy of Left Kidney, Ureter and Bladder (05/04/23) Introduction of Vasopressor into Peripheral Vein, Percutaneous Approach (05/04/23) Release Peritoneum, Open Approach (05/04/23) Transfusion of Nonautologous Red Blood Cells into Peripheral Vein, Percutaneous Approach (05/04/23) Labs on day of discharge: Laboratory Results WBC 11.0 X10*3/uL (4.8-10.8) H 12/06/23 05:54 RBC 2.94 X10*6/uL (4.20-5.50) L 12/06/23 05:54 Hgb 8.5 g/dl (12.0-16.0) L 12/06/23 05:54 Hct 26.4 % (37.0-47.0) L 12/06/23 05:54 MCV 89.8 fL (80.0-98.0) 12/06/23 05:54 MCH 28.9 pg (27.0-33.0) 12/06/23 05:54 MCHC 32.2 g/dl (31.0-35.0) 12/06/23 05:54 RDW 15.9 % (11.0-16.0) 12/06/23 05:54 Plt Count 250 X10*3/uL (160-400) D 12/06/23 05:54 MPV 9.5 fL (9.4-12.3) 12/06/23 05:54 Immature Gran % (Auto) 0.4 % (0.0-0.4) 12/02/23 13:47 Neut % (Auto) 70.4 % (45-73) 12/02/23 13:47 Lymph % (Auto) 17.9 % (20-40) L 12/02/23 13:47 [place] % (Auto) 9.3 % (2-11) 12/02/23 13:47 Eos % (Auto) 1.4 % (0-4) 12/02/23 13:47 Baso % (Auto) 0.6 % (0-2) 12/02/23 13:47 Lymph # (Auto) 2.0 X10*3/uL (1.2-4.9) 12/02/23 13:47 [place] # (Auto) 1.0 X10*3/uL (0.1-1.2) 12/02/23 13:47 Eos # (Auto) 0.2 X10*3/uL (0.0-0.4) 12/02/23 13:47 Baso # (Auto) 0.1 X10*3/uL (0.0-0.2) 12/02/23 13:47 Abs Immat Gran (auto) 0.04 X10*3/uL (0.00-0.03) H 12/02/23 13:47 Absolute Neuts (auto) 7.7 x10*3/uL (2.0-8.3) 12/02/23 13:47 Absolute Nucleated RBC 0.000 X10*3/uL (0.0-0.012) 12/06/23 05:54 Nucleated RBC % (auto) 0.0 /100WBC (0.0-0.2) 12/06/23 05:54 Sodium 139 mmol/L (135-145) 12/06/23 05:54 Potassium 3.7 mmol/L (3.3-5.1) D 12/06/23 05:54 Chloride 104 mmol/L (96-108) 12/06/23 05:54 Carbon Dioxide 28 mmol/L (22-29) 12/06/23 05:54 Anion Gap 11 (12-20) L 12/06/23 05:54 BUN 9 mg/dL (9-16) 12/06/23 05:54 Creatinine 0.49 mg/dL (0.5-1.4) L 12/06/23 05:54 Estim Creat Clear Calc 102.9 12/06/23 05:54 Estimated GFR > 60 12/06/23 05:54 Random Glucose 128 mg/dL (60-115) H 12/02/23 13:47 Fasting Glucose 99 mg/dL (60-99) 12/06/23 05:54 Calcium 7.8 mg/dL (8.4-10.2) L 12/06/23 05:54 Phosphorus 1.9 mg/dL (2.7-4.5) L 12/02/23 13:47 Magnesium 1.8 mg/dL (1.6-2.6) 12/06/23 05:54 Total Bilirubin 0.3 mg/dL (0.0-1.0) 12/06/23 05:54 Direct Bilirubin 0.1 mg/dL (0.0-0.5) 12/06/23 05:54 AST 21 U/L (5-31) 12/06/23 05:54 ALT 24 U/L (0-31) 12/06/23 05:54 Alkaline Phosphatase 116 U/L (39-117) 12/06/23 05:54 Troponin I High Sens 3.3 ng/L (<3.5-17.0) D 12/02/23 13:47 Total Protein 5.8 g/dL (6.5-8.0) L 12/06/23 05:54 Albumin 2.3 g/dL (3.5-5.0) L 12/06/23 05:54 Blood Type O Positive 12/04/23 11:11 Antibody Screen NEGATIVE 12/04/23 11:11 Impressions PICC Line Insertion 12/01/23 10:30 IMPRESSION: Placement of a 5 fr 34 cm, dual lumen power PICC PLAN: -The catheter may be used immediately. This procedure was performed by Chucho Jackson PA-C, and directly supervised by Dr. Dowell Discharge Plan Discharge Anticipated Discharge Date/Time: 12/09/23 10:26 Patient Disposition: Home Health Service Discharge Diagnosis: Colostomy takedown Referrals: [facility] [Outside] - 1 Week Nessa Hillman NP [Primary Care Provider] - 1 Week Jack Quan MD [Physician] - 1 Week Discharge Medications: New hydrocodone-acetaminophen 5-325 mg tablet 1 tab PO Q4-6H PRN (Reason: pain) Qty: 20 0RF Rx Instructions: Partial Fill upon patient request. hydromorphone 2 mg tablet 2 mg PO Q6H PRN (Reason: pain) Qty: 20 0RF Rx Instructions: Partial Fill upon patient request. Continued multivitamin Tablet 1 tab PO DAILY mirtazapine 15 mg tablet 15 mg PO BEDTIME lorazepam 1 mg tablet 1 mg PO BEDTIME calcium carbonate-vitamin D3 [Calcium 600 + D(3)] 600 mg-5 mcg (200 unit) Tablet 1 tab PO DAILY hydrochlorothiazide 25 mg tablet 25 mg PO DAILY Hold Instructions: Resume on 06/07/23. per atorvastatin 20 mg tablet 20 mg PO DAILY esomeprazole magnesium [Nexium] 40 mg capsule,delayed release(DR/EC) 40 mg PO DAILY potassium chloride 10 mEq capsule, extended release 10 meq PO BID losartan 25 mg tablet 25 mg PO DAILY carvedilol 6.25 mg tablet 6.25 mg PO BID Discharge Orders: Discharge Order (Routine); Ordered 12/09/23 Ordered By: Gideon Ruvalcaba Diet: Advance to usual diet Activity on Discharge: No heavy lifting Stand Alone Forms: Patient Portal Discharge page Print Language: Estonian Activity Restrictions/Additional Instructions: Ice to wound 20 minutes several times today and tomorrow. May shower i. Remove outside dressing only. Leave Steri-Strips intact. No strenuous activities Dry dressings daily to midline wound Care Plan Goals: Returned to baseline Health Concerns: Continued convalescence Plan of Treatment: Eventual ileostomy reversal Assessment: Stable Discharge Date/Time: 12/09/23 11:21
--- NOTE | 2023-12-09 10:34 | MHC.CM.PN ---
PATIENT IS DC HOME TODAY WITH RESUMPTION OF COMFORT [facility]. PER REVIEW OF NOTES, PATIENT IS ABLE TO ARRANGE FOR HER TRANSPORT HOME. RN AWARE OF PLAN.
--- NOTE | 2023-12-14 11:52 | W.MHC.F2F ---
Service Date Service Date: 12/14/23 Encounter Date of encounter: 12/09/23 Reasons for Services Signs and symptoms assessed: Patient is tolerating a diet. He is having regular bowel habits in her ostomy.. She is ambulating with no assistance. Wounds clean dry and intact Reason for halfway: wound care and postoperative assessment and/or care Homebound: Leaving the home is medically contraindicated at this time without the asist of a device and/or another person due th the listed conditions above and below. Reason homebound: weakness related to hospital stay and unable to drive Homebound supporting statement: Status post colostomy reversal we need was loop ileostomy. Will need home VNA for ostomy care. Certification: Based on the above findings, I certify that this patient is confined to the home and needs intermittent halfway care, physical therapy and/or speech therapy, or continues to need occupational therapy. The patient is under my care, and I have initiated the establishment of the plan of care. The patient will be followed by a physician who will periodically review the plan of care. Time Spent With Patient Time: Total time managing care of this patient today ____ minutes.
== END 2023-12-09 11:21 | disposition home health service (06) | DRG 230 ==
LOC: HO.SSSA 13:09 → HO.S3 13:24
PROVIDERS: Internal Medicine; Nurse Practitioner; Physician Assistant Surgical; Surgery; Admitting Provider Surgery; PCP Nurse Practitioner Family; Visit Provider Surgery
PROC: 0DSP0ZZ Reposition Rectum, Open Approach (ICD-10-PCS; CPT 49000; principal; 2023-11-30 11:00)
PROC: 0D1B0Z4 Bypass Ileum to Cutaneous, Open Approach (ICD-10-PCS; CPT 49000; principal; 2023-12-04 11:30)
DX: Z43.3 Encounter for attention to colostomy (principal); I51.81 Takotsubo syndrome; N82.3 Fistula of vagina to large intestine; E87.6 Hypokalemia; K66.0 Peritoneal adhesions (postprocedural) (postinfection); K91.89 Other postprocedural complications and disorders of digestive system; Y83.8 Other surgical procedures as the cause of abnormal reaction of the patient, or of later complication, without mention of misadventure at the time of the procedure; Z79.899 Other long term (current) drug therapy
CPT/HCPCS: 36410; 36415; 36573; 80048; 80053; 80076; 83735; 84100; 84484; 85025; 85027; 86850; 86900; 86901; 88304; 93005; C1758; C9113; J0131; J1100; J1170; J1644; J1790; J1836; J1956; J2060; J2250; J2405; J2550; J2704; J2795; J3010; J3475; J7120

== ENCOUNTER 2023-11-30 10:06 | Outpatient (BNV) | payer OTHER, SELFPAY | END 2023-12-01 09:30 | PROVIDERS: Admitting Provider Surgery; PCP Nurse Practitioner Family; Visit Provider Physician Assistant Surgical | DX: T82.594A Other mechanical complication of infusion catheter, initial encounter (principal) | CPT/HCPCS: 36573 ==

== ENCOUNTER → 2023-11-30 10:06 | Outpatient (BNV) | payer OTHER, SELFPAY | PROVIDERS: Admitting Provider Surgery; PCP Nurse Practitioner Family; Visit Provider Surgery | DX: N32.1 Vesicointestinal fistula (principal) | CPT/HCPCS: 99024; 99499; G0180 ==

== ENCOUNTER → 2023-11-30 10:06 | Outpatient (BNV) | payer OTHER, SELFPAY | PROVIDERS: Admitting Provider Surgery; PCP Nurse Practitioner Family; Visit Provider Internal Medicine | DX: E83.42 Hypomagnesemia (principal); E87.6 Hypokalemia | CPT/HCPCS: 99222; 99232 ==

== ENCOUNTER 2023-12-19 14:07 | Outpatient (AMB) | payer OTHER, SELFPAY ==
--- NOTE | 2023-12-19 14:15 | MHC.OFFVIS ---
Intake Intake Visit Reasons: s/p colostomy reversal Intake Note: Patient here s/p colostomy reversal on 12-04-23. Reports incisions healing well. Patient c/o: some normal draining. Having problems getting supplies with insurance approval. R Developer Required: No Accompanied by: Self / Same As Patient Allergies clams Allergy (Severe, Verified 12/19/23 14:20) Stomach Upset amoxicillin [Augmentin] Allergy (Unknown, Verified 12/19/23 14:20) GI, Difficulty breathing clavulanic acid [Augmentin] Allergy (Unknown, Verified 12/19/23 14:20) GI, Difficulty breathing codeine [CODEINE] Allergy (Unknown, Verified 12/19/23 14:20) SENSITIVITY erythromycin base [Erythromycin Base] Allergy (Unknown, Verified 12/19/23 14:20) GI, DIFF BREATHING NSAIDS (Non-Steroidal Anti-Inflamma [NSAIDS (NON-STEROIDAL ANTI-INFLAMMA] Allergy (Unknown, Verified 12/19/23 14:20) GI UPSET Sulfa (Sulfonamide Antibiotics) Allergy (Unknown, Verified 12/19/23 14:20) RASH morphine [MORPHINE] Adverse Reaction (Severe, Verified 12/19/23 14:20) NAUSEA aspirin [Aspirin] Adverse Reaction (Mild, Verified 12/19/23 14:20) STOMACH UPSET HPI HPI Comments History of Present Illness Details Patient presents for follow-up. All things considered , she is doing quite well. . Ostomy functioning uneventfully. She has serous drainage from her incisions which are expected. She is slowly but steadily increasing arterial level. She is tolerating her diet. [facility] [place] Medical History (Updated 12/19/23 @ 14:44 by Jack Quan MD) Postop check Myocardial infarction Hypertension Barretts esophagus GERD (gastroesophageal reflux disease) Surgical History (Updated 12/19/23 @ 14:44 by Jack Quan MD) H/O dilation and curettage History of exploratory laparotomy (05/11/23) History of esophagogastroduodenoscopy (EGD) Hx of colonoscopy Family History Father Colon cancer Paternal Aunt Colon cancer Social History Household Members: None Housing: House Do you presently have visiting nurse or other home services: No Alcohol intake: never Patient Tobacco Use Status: Never used Tobacco Tobacco use type: Cigarette Cigarette Packs Per Day: 0.5 Cigarettes Per Day: 10.0 Years Smoked: 30 e-Cigarette/Vaping Use: Never Used Substance Use Type: Marijuana service: No Physical Exam GI Other: Ostomy functioning well. Ostomy site and midline incision is clean dry and intact healing uneventfully. Assessment & Plan Assessment & Plan (1) Ileostomy in place: Code(s): Z93.2 - Ileostomy status Plan Patient has been given local instructions and will see me as directed or p.r.n.. All questions answered. She would like to have her ileostomy reversed later in the year. She still needs to convalesced more before we can consider that. Coding Level of Care Code Global (01926) Diagnoses Ileostomy in place Z93.2
== END 2023-12-19 14:58 | disposition home or self-care (01) ==
PROVIDERS: PCP Nurse Practitioner Family; Visit Provider Surgery
DX: Z93.2 Ileostomy status (principal)
CPT/HCPCS: 99024

== ENCOUNTER → 2023-12-19 14:07 | Outpatient (BNVA) | payer OTHER, SELFPAY | PROVIDERS: PCP Nurse Practitioner Family; Visit Provider Surgery ==

== ENCOUNTER 2023-12-29 02:37 | Inpatient (IN) | payer OTHER, SELFPAY ==
[2023-12-29] VITALS (10 sets, daily range): BP systolic 103–135; BP diastolic 56–88; PULSE 96–124; RESP 16–20; TEMP 36.4–37.1; O2SAT 95–99; BMI 23.8
--- NOTE | ~2023-12-29 | CT_ITS ---
EXAMINATION: CT ABDOMEN AND PELVIS WITH CONTRAST CLINICAL INFORMATION: Abdominal pain, one month status post ileostomy, complains of no bowel movement. History of diverticular abscess and CT-guided drainage COMPARISON: CT scan of abdomen and pelvis on 05/04/2023 TECHNIQUE: Multidetector volumetric images were obtained from the superior aspect of the liver through the pubic symphysis following administration 85 mL of Omnipaque 350 intravenous contrast. Sagittal and coronal reformatted images were obtained on the technologist's workstation. Oral contrast: No This CT examination was performed using dose optimization techniques as appropriate, variously including the following: *Automated exposure control *Adjustment of mA and/or kV according to patient size (this includes techniques or standardized protocols for targeted exams where dose is matched to indication/reason for exam; i.e. extremities or head) *Use of iterative reconstruction technique DLP: 457 mGy-cm FINDINGS: LUNG BASES: Bilateral lung bases are clear. LIVER: No focal lesion is seen in the liver. GALLBLADDER AND BILIARY TREE: Gallbladder appears unremarkable without calcified stones. Common bile duct is not dilated. SPLEEN: The spleen is normal in size without focal lesion. PANCREAS: The pancreas appears unremarkable. ADRENAL GLANDS: Adrenal glands are normal in size without focal lesion bilaterally. KIDNEYS: Bilateral kidneys are normal in size a simple cyst in lateral mid left renal cortex measuring 1.2 cm in diameter, mean attenuation of 11.9 Hounsfield units. 2 more tiny subcortical cystic lesions 0.5 cm in diameter are seen in posterior medial mid and anterior lateral lower left renal cortex, for which no follow-up imaging is recommended. BOWELS: There is fluid distention of ileal loops in the right abdomen, measuring up to 2.9 cm in diameter. Colon shows luminal collapse. RETROPERITONEUM: No abnormally enlarged retroperitoneal lymph nodes, mass or hematoma could be seen. BLOOD VESSELS: Abdominal aorta is normal in size and smoothly patent. ABDOMINAL WALL: Midline infraumbilical laparotomy fibrotic scar is present with extensive subcutaneous abnormal enhancing soft tissue M air pockets, thickening of rectus sheath is seen. At S5 level, right suprapubic double barrel ileostomy is seen with marked constriction of the afferent loop at the rectus sheath, progressive fluid distention of the efferent loop. PERITONEUM: There was no ascites. There were no abdominal peritoneal inflammatory changes seen. No free peritoneal air was seen. No abnormally enlarged mesenteric lymph nodes are found. BONES: No fracture or dislocation. No focal bone lesion diagnostic of metastatic disease could be seen in the lumbar region. EXAMINATION: CT pelvis. FINDINGS: URINARY BLADDER: Urinary bladder fills normally with urine. BOWELS: Central proximal pelvic ileum is dilated with air-fluid level, measuring up to 2.7 cm in transverse diameter. Distal sigmoid colon anastomosis staple line and anorectal junction anastomosis staple line are seen. There is moderate fluid distention of the rectum. Appendix cannot be identified. GENITAL ORGANS: No adnexal mass lesion could be seen. The uterus is unremarkable. LYMPH NODES: No abnormally enlarged iliac or inguinal lymph nodes are seen. PERITONEUM: No inflammatory changes, ascites or free peritoneal air are found in the pelvis. BONES: No fracture or dislocation. No focal bone lesion diagnostic of metastatic disease could be seen in the pelvis. Large right posterior gluteal calcified granuloma is seen. CT/CT abdomen pelvis w IV con IMPRESSION: 1. Interval performance of laparotomy, successful clearance of left pelvic abscesses, performance of sigmoid colon and rectosigmoid junction anastomosis. 2. Interval construction of Right suprapubic double barrel ileostomy with marked constriction of the afferent loop at the rectus sheath, progressive fluid distention of the efferent loop compatible with intestinal obstruction. 3. Midline infraumbilical laparotomy fibrotic scar is present with extensive subcutaneous abnormal enhancing soft tissue and air pockets, thickening of rectus sheath. Postsurgical cellulitis and fasciitis cannot be excluded. Clinical correlation is recommended. 4. There is moderate fluid distention of the rectum.
[2023-12-29 03:10] LABS: MANUAL DIFF FLAG NO
[2023-12-29 03:11] LABS: Basophils Absolute Auto 0.1 X10*3/uL (0.0-0.2); Basophils Percent Auto 0.3 % (0-2); Eosinophils Absolute Auto 0.4 X10*3/uL (0.0-0.4); Eosinophils Percent Auto 1.6 % (0-4); Hematocrit 39.3 % (37.0-47.0); Hemoglobin 13.3 g/dl (12.0-16.0); Imm Gran Abs Auto 0.13 X10*3/uL (0.00-0.03); Imm Gran Pct Auto 0.5 % (0.0-0.4); Lymphocytes Absolute Auto 3.9 X10*3/uL (1.2-4.9); Lymphocytes Percent Auto 16.6 % (20-40); Mean Corpuscular HGB Conc 33.8 g/dl (31.0-35.0); Mean Corpuscular Hemoglobin 28.9 pg (27.0-33.0); Mean Corpuscular Volume 85.4 fL (80.0-98.0); Monocytes Absolute Auto 1.3 X10*3/uL (0.1-1.2); Monocytes Percent Auto 5.4 % (2-11); Neutrophils Absolute Auto 17.9 x10*3/uL (2.0-8.3); Neutrophils Percent Auto 75.6 % (45-73); Platelet Count 325 X10*3/uL (160-400); Red Cell Distribution Width 13.9 % (11.0-16.0); White Blood Count 23.7 X10*3/uL (4.8-10.8)
[2023-12-29 03:31] LABS: Alanine Aminotransferase 49 U/L (0-31); Albumin Level 4.1 g/dL (3.5-5.0); Alkaline Phosphatase 174 U/L (39-117); Anion Gap 18 (12-20); Aspartate Amino Transferase 48 U/L (5-31); Bilirubin Total 0.4 mg/dL (0.0-1.0); Blood Urea Nitrogen 42 mg/dL (9-16); Calcium 9.6 mg/dL (8.4-10.2); Carbon Dioxide 15 mmol/L (22-29); Chloride 104 mmol/L (96-108); Estimated Glomerular Filt Rate 41; Glucose Random 135 mg/dL (60-115); Lipase 31 U/L (8-78); Potassium 3.8 mmol/L (3.3-5.1); Sodium 133 mmol/L (135-145); Total Protein 9.8 g/dL (6.5-8.0)
--- NOTE | 2023-12-29 03:45 | MHC.EDTECH ---
PATIENT WAS INCONTINENT OF STOOL CARE GIVEN .
[2023-12-29 03:48] LABS: Influenza A PCR NEGATIVE (Negative); Influenza B PCR NEGATIVE (Negative); Resp Syncy Virus RNA Qual PCR NEGATIVE (Negative); SARS COV2 PCR INHOUSE NEGATIVE (Negative)
--- NOTE | 2023-12-29 03:52 | PC.NURSE ---
pt ileostomy emptied with assistance, brown liquid 300 ml
--- NOTE | 2023-12-29 04:18 | ED_ITS ---
HPI - General Adult General Chief complaint: Abdominal Pain Stated complaint: stomach pain post op Time Seen by Provider: 12/29/23 04:09 History of Present Illness HPI narrative: The patient is a 63-year-old female who had a partial colectomy and a colostomy in May of 2023 because of complications of diverticulitis. She did well following that surgery and last month on November 29 she had a takedown of her colostomy and reanastomosis. 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 Since this surgery 3-1/2 weeks ago she was doing well until this evening. She ate dinner time after dinner tonight she developed abdominal pain that became very severe and she also felt there was less ostomy output. She was in a great deal of discomfort and ultimately arrived by private vehicle to the emergency room because of the symptoms. She has had some nausea and vomiting. No fever. Related Data Home Medications ?Medication ?Instructions ?Recorded ?Confirmed atorvastatin 20 mg tablet 20 mg PO DAILY 03/01/23 11/30/23 esomeprazole magnesium 40 mg 40 mg PO DAILY 03/01/23 11/30/23 capsule,delayed release (Nexium) hydrochlorothiazide 25 mg tablet 25 mg PO DAILY 03/01/23 11/30/23 multivitamin 1 tab PO DAILY 05/04/23 11/30/23 carvedilol 6.25 mg tablet 6.25 mg PO BID 10/13/23 11/30/23 losartan 25 mg tablet 25 mg PO DAILY 10/13/23 11/30/23 potassium chloride 10 mEq 10 meq PO BID 10/13/23 11/30/23 capsule,extended release calcium carbonate 600 mg-vitamin 1 tab PO DAILY 11/30/23 11/30/23 D3 5 mcg (200 unit) tablet (Calcium 600 + D(3)) lorazepam 1 mg tablet 1 mg PO BEDTIME anxiety 11/30/23 11/30/23 mirtazapine 15 mg tablet 15 mg PO BEDTIME 11/30/23 11/30/23 Previous Rx's ?Medication ?Instructions ?Recorded hydrocodone 5 mg-acetaminophen 325 1 tab PO Q4-6H PRN pain #20 tabs 12/09/23 mg tablet hydromorphone 2 mg tablet 2 mg PO Q6H PRN pain #20 tabs 12/09/23 Allergies Allergy/AdvReac Type Severity Reaction Status Date / Time clams Allergy Severe Stomach Verified 12/29/23 02:48 Upset clavulanic acid [Augmentin] Allergy Unknown GI, Verified 12/29/23 02:48 Difficulty breathing codeine [CODEINE] Allergy Unknown SENSITIVIT Verified 12/29/23 02:48 Y erythromycin base Allergy Unknown GI, DIFF Verified 12/29/23 02:48 [Erythromycin Base] BREATHING NSAIDS (Non-Steroidal Allergy Unknown GI UPSET Verified 12/29/23 02:48 Anti-Inflamma [NSAIDS (NON-STEROIDAL ANTI-INFLAMMA] Sulfa (Sulfonamide Allergy Unknown RASH Verified 12/29/23 02:48 Antibiotics) morphine [MORPHINE] AdvReac Severe NAUSEA Verified 12/29/23 02:48 aspirin [Aspirin] AdvReac Mild STOMACH Verified 12/29/23 02:48 UPSET Review of Systems 2 Review of Systems: Yes all other systems are reviewed and are negative [facility] Past Medical History Medical History (Updated 12/29/23 @ 08:07 by Ephraim Ratliff MD) Postop check Myocardial infarction Hypertension Barretts esophagus GERD (gastroesophageal reflux disease) Surgical History (Updated 12/19/23 @ 14:44 by Jack Quan MD) H/O dilation and curettage History of exploratory laparotomy (05/11/23) History of esophagogastroduodenoscopy (EGD) Hx of colonoscopy Family History Family History Father Colon cancer Paternal Aunt Colon cancer Social History Social History Household Members: None Housing: House Do you presently have visiting nurse or other home services: No Alcohol intake: never Patient Tobacco Use Status: Never used Tobacco Tobacco use type: Cigarette Cigarette Packs Per Day: 0.5 Cigarettes Per Day: 10.0 Years Smoked: 30 e-Cigarette/Vaping Use: Never Used Substance Use Type: Marijuana Advance Directives: No Advance Directives Information Provided: No Do you have a plan to hurt others: No Plan Patient : No service: No Physical Exam ED Vital Signs: Vital Signs - 24 hr 12/29/23 02:43 12/29/23 03:08 12/29/23 06:14 Temperature 98.0 F 97.6 F 98.0 F Pulse Rate 124 H 103 H 104 H Respiratory Rate 16 16 16 Blood Pressure 134/88 114/70 103/56 L Pulse Oximetry 98 97 95 Oxygen Delivery Method Room Air Room Air Room Air 12/29/23 07:28 Temperature 98.2 F Pulse Rate 105 H Respiratory Rate 18 Blood Pressure 108/72 Pulse Oximetry 99 Oxygen Delivery Method Room Air BMI result Body Mass Index 23.8 Const Other: The patient was awake and alert. She looks uncomfortable. HENMT Other: The face is symmetrical. ?Mucous membranes moist. Eyes Other: Pupils are round equal, conjunctivae are clear, extraocular movements intact Resp Effort & Inspection: normal respiratory effort Auscultation: clear to auscultation bilaterally Cardio Rate: regular rate Rhythm: regular rhythm Heart sounds: S1 normal heart sound present and S2 normal heart sound present GI Other: The patient had diffuse abdominal tenderness without focal rebound or guarding. Skin Other: Skin was pale and dry Neuro Other: The patient is awake, alert, oriented, appropriate, grossly neurologically intact. Extrem Other: No peripheral edema Medications Administered Discontinued Medications Generic Name Dose Route Start Last Admin Trade Name Freq PRN Reason Stop Dose Admin Hydromorphone HCl 2 mg 12/29/23 04:10 12/29/23 04:28 Hydromorphone Hcl 2 Mg/Ml Vial IVPUSH 12/29/23 04:11 2 mg ONCE ONE Administration Protocol Sodium Chloride 1,000 mls @ 999 mls/hr 12/29/23 04:15 12/29/23 05:44 Ns IV 12/29/23 05:15 Infused .Q1H1M ARISTIDES Infusion Iohexol 85 ml 12/29/23 04:58 12/29/23 04:59 Iohexol 350 Mg/Ml 100 Ml Infus..Btl IV 12/29/23 04:59 85 ml ONCE ONE Administration Ondansetron HCl 4 mg 12/29/23 04:10 12/29/23 04:29 Ondansetron Hcl 4 Mg/2 Ml Vial IVPUSH 12/29/23 04:11 4 mg ONCE ONE Administration Medical Decision Making Medical Decision Making MDM Narrative: The patient is a 63-year-old woman with a significant history of abdominal surgeries who presents with acute abdominal pain and vomiting and initially seemed to have decreased ostomy output. She was given IV hydromorphone and ondansetron and IV fluids. A CT scan shows loops of fluid-filled loops of small bowel potentially consistent with a bowel obstruction although the patient was putting out some ostomy output. Contacted Dr. Ruvalcaba of General surgery. He came to see the patient. The patient will be admitted to the surgical service. Lab Data 12/29/23 03:06 12/29/23 03:06 Labs: Lab Results 12/29/23 12/29/23 Range/Units 03:06 06:16 WBC 23.7 H (4.8-10.8) X10*3/uL RBC 4.60 D (4.20-5.50) X10*6/uL Hgb 13.3 D (12.0-16.0) g/dl Hct 39.3 D (37.0-47.0) % MCV 85.4 (80.0-98.0) fL MCH 28.9 (27.0-33.0) pg MCHC 33.8 (31.0-35.0) g/dl RDW 13.9 (11.0-16.0) % Plt Count 325 D (160-400) X10*3/uL MPV 9.0 L (9.4-12.3) fL Immature Gran % (Auto) 0.5 H (0.0-0.4) % Neut % (Auto) 75.6 H (45-73) % Lymph % (Auto) 16.6 L (20-40) % [place] % (Auto) 5.4 (2-11) % Eos % (Auto) 1.6 (0-4) % Baso % (Auto) 0.3 (0-2) % Lymph # (Auto) 3.9 (1.2-4.9) X10*3/uL [place] # (Auto) 1.3 H (0.1-1.2) X10*3/uL Eos # (Auto) 0.4 (0.0-0.4) X10*3/uL Baso # (Auto) 0.1 (0.0-0.2) X10*3/uL Abs Immat Gran (auto) 0.13 H (0.00-0.03) X10*3/uL Absolute Neuts (auto) 17.9 H (2.0-8.3) x10*3/uL Absolute Nucleated RBC 0.000 (0.0-0.012) X10*3/uL Nucleated RBC % (auto) 0.0 (0.0-0.2) /100WBC Sodium 133 L (135-145) mmol/L Potassium 3.8 (3.3-5.1) mmol/L Chloride 104 (96-108) mmol/L Carbon Dioxide 15 L (22-29) mmol/L Anion Gap 18 (12-20) BUN 42 H (9-16) mg/dL Creatinine 1.32 (0.5-1.4) mg/dL Estim Creat Clear Calc 34.0 Estimated GFR 41 Random Glucose 135 H (60-115) mg/dL Calcium 9.6 D (8.4-10.2) mg/dL Total Bilirubin 0.4 (0.0-1.0) mg/dL AST 48 H (5-31) U/L ALT 49 H (0-31) U/L Alkaline Phosphatase 174 H (39-117) U/L Total Protein 9.8 H (6.5-8.0) g/dL Albumin 4.1 (3.5-5.0) g/dL Lipase 31 (8-78) U/L Urine Color Yellow Urine Appearance Clear Urine pH 5.0 (5.0-9.0) Ur Specific [place] >= 1.030 H (1.005-1.025) Urine Protein Trace (Neg-Trace) mg/dL Urine Glucose (UA) Negative (Negative) mg/dL Urine Ketones Negative (Negative) mg/dL Urine Blood Negative (Negative) Urine Nitrite Negative (Negative) Ur Leukocyte Esterase Trace H (Negative) Urine RBC 0-2 (0-2) /HPF Urine WBC 0-5 (0-5) /HPF Ur Squamous Epith Cells 0-2 (0-2) /HPF Urine Bacteria None Seen (None Seen) Hyaline Casts 3-5 (0-2) /LPF Granular Casts Present Influenza Type A (PCR) NEGATIVE (Negative) Influenza Type B (PCR) NEGATIVE (Negative) RSV RNA Qual (PCR) NEGATIVE (Negative) SARS-CoV-2 RNA (RT-PCR) NEGATIVE (Negative) Discharge Plan Discharge Clinical Impression: Small bowel obstruction Patient Disposition: Admitted As Inpatient Print Language: Persian
[2023-12-29] MEDS: HYDROmorphone HCl 2 MG/ML VIAL IVPUSH (04:28)
[2023-12-29] MEDS: 0.9 % Sodium Chloride 1,000 ML 999 ML IV (04:29)
[2023-12-29] MEDS: ondansetron HCL 4 MG/2 ML VIAL IVPUSH ×2 (04:29→15:02)
--- NOTE | 2023-12-29 04:58 | PC.NURSE ---
pt medicated per MAR
[2023-12-29] MEDS: iohexoL 350 MG/ML 100 ML INFUS..BTL 85 ML IV (04:59)
--- NOTE | 2023-12-29 05:04 | PC.NURSE ---
pt iv infiltrated after ct-scan , iv removed
--- NOTE | 2023-12-29 06:40 | MHC.EDTECH ---
0600 ROUNDING DONE ,VITALS TAKEN ,URINE SAMPLE COLLECTED AND SENT TO LAB .
[2023-12-29 07:00] LABS: Appearance Urine Clear; Color Urine Yellow; Glucose Urine UA Negative (Negative); Leukocyte Esterase Urine Trace (Negative); Nitrite Urine Negative (Negative); Specific Gravity - Urine >= 1.030 (1.005-1.025); UMIC TRIGGER UACC YES; Urine Blood Negative (Negative); Urine Ketones Negative (Negative); Urine Protein Trace mg/dL (Neg-Trace)
[2023-12-29 07:13] LABS: Bacteria Urine None Seen (None Seen); Granular Casts Urine Present; RBC Urine 0-2 /HPF (0-2); Squamous Epithelial Cell Urine 0-2 /HPF (0-2); WBC Urine 0-5 /HPF (0-5)
--- NOTE | 2023-12-29 07:22 | PC.NURSE ---
Patient wihout IV access, patient stating dr. ritter just spoke with her and he is going to send her for picc line placement
--- NOTE | 2023-12-29 08:26 | PM.HPGS ---
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 She was discharged on 12/08 and had been doing well. She reports she ate dinner last night and shortly after developed severe midabdominal pain associated with nausea and vomiting. She then had significant decrease in her ostomy output. Due to the persistence of pain, she presented to the ED where work up included CBC, BMP and LFTs which was significant for leukocytosis of 23.7 and BUN/Cr 42/1.[address] scan abd/pelvis obtained which showed proximal ileum is dilated with air-fluid level with marked constriction of the afferent loop at the rectus sheath. She reports her ostomy has began to function again and she has emptied it twice since being in the ED however still has nausea and abdominal pain. Review of Systems Constitutional: Constitutional: Denies chills and Denies fever(s) ENT: Denies dizziness Cardiovascular: Cardiovascular: Denies chest pain and Denies dyspnea Respiratory: Respiratory: Denies dyspnea Gastrointestinal: Gastrointestinal: Reports as per HPI Genitourinary: Genitourinary: Denies dysuria Integumentary/Breasts: Skin/Breast: Denies rash and Denies jaundice Neurologic: Denies dizziness [facility] Past Medical History Medical History (Updated 12/29/23 @ 08:07 by Ephraim Ratliff MD) Postop check Myocardial infarction Hypertension Barretts esophagus GERD (gastroesophageal reflux disease) Family History Family History Father Colon cancer Paternal Aunt Colon cancer Surgical History Surgical History (Updated 12/19/23 @ 14:44 by Jack Quan MD) H/O dilation and curettage History of exploratory laparotomy (05/11/23) History of esophagogastroduodenoscopy (EGD) Hx of colonoscopy Social History Social History Household Members: None Housing: House Do you presently have visiting nurse or other home services: No Alcohol intake: never Patient Tobacco Use Status: Never used Tobacco Tobacco use type: Cigarette Cigarette Packs Per Day: 0.5 Cigarettes Per Day: 10.0 Years Smoked: 30 e-Cigarette/Vaping Use: Never Used Substance Use Type: Marijuana Advance Directives: No Advance Directives Information Provided: No Do you have a plan to hurt others: No Plan Patient : No service: No Meds Allergies Allergy/AdvReac Type Severity Reaction Status Date / Time clams Allergy Severe Stomach Verified 12/29/23 02:48 Upset clavulanic acid [Augmentin] Allergy Unknown GI, Verified 12/29/23 02:48 Difficulty breathing codeine [CODEINE] Allergy Unknown SENSITIVIT Verified 12/29/23 02:48 Y erythromycin base Allergy Unknown GI, DIFF Verified 12/29/23 02:48 [Erythromycin Base] BREATHING NSAIDS (Non-Steroidal Allergy Unknown GI UPSET Verified 12/29/23 02:48 Anti-Inflamma [NSAIDS (NON-STEROIDAL ANTI-INFLAMMA] Sulfa (Sulfonamide Allergy Unknown RASH Verified 12/29/23 02:48 Antibiotics) morphine [MORPHINE] AdvReac Severe NAUSEA Verified 12/29/23 02:48 aspirin [Aspirin] AdvReac Mild STOMACH Verified 12/29/23 02:48 UPSET Active Medications: Current Medications Heparin Sodium (Porcine) (Heparin Sodium,Porcine 5,000 Unit/Ml Vial) 5,000 unit SUBCUT Q12H ARISTIDES Hydromorphone HCl (Hydromorphone Hcl 1 Mg/Ml Syringe) 1 mg IVPUSH Q3H PRN; Protocol PRN Reason: Pain, Severe (Pain Scale 7-10) Dextrose/Sodium Chloride (D5ns) 1,000 mls @ 100 mls/hr IVCONT .Q10H ARISTIDES Sodium Chloride (0.9 % Sodium Chloride Flush 3 Ml Syringe) 3 ml IVFLUSH QSHIFT [facility] Home Medications ?Medication ?Instructions ?Recorded ?Confirmed ?Last Taken ?Type atorvastatin 20 mg tablet 20 mg PO DAILY 03/01/23 11/30/23 11/29/23 History esomeprazole magnesium 40 mg 40 mg PO DAILY 03/01/23 11/30/23 11/16/23 History capsule,delayed release (Nexium) hydrochlorothiazide 25 mg tablet 25 mg PO DAILY 03/01/23 11/30/2311/26/24 History multivitamin 1 tab PO DAILY 05/04/23 11/30/23 11/09/23 History carvedilol 6.25 mg tablet 6.25 mg PO BID 10/13/23 11/30/23 11/30/23 History losartan 25 mg tablet 25 mg PO DAILY 10/13/23 11/30/23 11/29/23 History potassium chloride 10 mEq 10 meq PO BID 10/13/23 11/30/23 11/23/23 History capsule,extended release calcium carbonate 600 mg-vitamin 1 tab PO DAILY 11/30/23 11/30/23 Unknown History D3 5 mcg (200 unit) tablet (Calcium 600 + D(3)) lorazepam 1 mg tablet 1 mg PO BEDTIME anxiety 11/30/23 11/30/23 Unknown History mirtazapine 15 mg tablet 15 mg PO BEDTIME 11/30/23 11/30/23 Unknown History Physical Exam Vital Signs: Vital Signs: Last Vital Signs Temp 98.2 F 12/29/23 07:28 Pulse 105 H 12/29/23 07:28 Resp 18 12/29/23 07:28 BP 108/72 12/29/23 07:28 Pulse Ox 99 12/29/23 07:28 O2 Del Method Room Air 12/29/23 07:28 BMI result Body Mass Index 23.8 Const: General: comfortable, no acute distress and alert Orientation/consciousness: patient oriented x3 Resp: Effort & Inspection: normal respiratory effort Cardio: Rate: tachycardic GI: Other: ostomy pink, small amount of gas in appliance Inspection: Yes distended (mild, softly ) and Yes incision (midline and old ostomy incision site clean, some drainage inferior aspect) Palpation (GI): Soft to palpation, Tenderness to palpation present (GI) (mild periumbical ) and no guarding Percussion: Yes normal to percussion Skin: General skin exam: no rashes or lesions noted Neuro: General: patient oriented x3 and moves all extremities Results Results Labs: Short CBC 12/29/23 Range/Units 03:06 WBC 23.7 H (4.8-10.8) X10*3/uL Hgb 13.3 D (12.0-16.0) g/dl Hct 39.3 D (37.0-47.0) % Plt Count 325 D (160-400) X10*3/uL BMP 12/29/23 03:06 Sodium 133 L Potassium 3.8 Chloride 104 Carbon Dioxide 15 L BUN 42 H Creatinine 1.32 Calcium 9.6 D Liver Function 12/29/23 Range/Units 03:06 Total Bilirubin 0.4 (0.0-1.0) mg/dL AST 48 H (5-31) U/L ALT 49 H (0-31) U/L Alkaline Phosphatase 174 H (39-117) U/L Albumin 4.1 (3.5-5.0) g/dL Urine 12/29/23 Range/Units 06:16 Urine Color Yellow Urine Appearance Clear Urine pH 5.0 (5.0-9.0) Ur Specific [place] >= 1.030 H (1.005-1.025) Urine Protein Trace (Neg-Trace) mg/dL Urine Glucose (UA) Negative (Negative) mg/dL Abdomen CT scan report/results: report reviewed and image reviewed Assessment and Plan (1) Small bowel obstruction: Status: Acute (2) Ileostomy in place: Status: Acute Plan 63 year old female almost 1 month post op end to end anastomosis of the colon to the rectal stump and diverting loop ileostomy who presented with abdominal pain, nausea/vomiting and decreased ostomy output with CT scan demonstrating dilated small bowel loops consistent with PSBO. Patient is now having some ostomy output. Will continue conservative measures for now with IVF, PRN analgesics/antiemetics. Discussed possible need for NGT if she continues to vomit. Will obtain PICC line as patient has hx of difficulty IV access. Has MARKIE on labs, likely prerenal due to dehydration. Leukocytosis likely reactive from vomiting and not secondary to infection. Repeat labs in am. Patient comfortable with plan. Quality Stroke Does the patient have a stroke diagnosis?: No VTE Prior VTE?: No VTE Risk Level:: Medical - moderate - high VTE Device Contraindication: N/A - Device Ordered VTE Drug Contraindication: N/A - Med Ordered Procedures Date of Service Date of Service: 12/29/23
--- NOTE | 2023-12-29 08:44 | PC.NURSE ---
IR called to find out when patient will be going for picc line placement , IR to return call
--- NOTE | 2023-12-29 09:04 | PC.NURSE ---
Patient vommited x 1 moderate amount of clear emesis. Awaiting call back from IR for picc line placement, provider aware
--- NOTE | 2023-12-29 09:44 | PHA.MEDREC ---
Pharmacy Consult ? Medication Reconciliation Pharmacy has completed the medication reconciliation. Spoke with patient, confirmed medication that match with claim history.
[2023-12-29] MEDS: Promethazine HCL 25 MG/ML VIAL 12.5 MG IM ×2 (10:09→18:38)
[2023-12-29] MEDS: Heparin Sodium,Porcine 5,000 UNIT/ML VIAL 5000 UNIT SUBCUT ×2 (10:12→21:23)
--- NOTE | 2023-12-29 10:23 | PC.NURSE ---
Ir called stating that patient will go for PICC placement around 12pm. Patient aware and stating that she does not want NG tube placed because she is going in 2 hours or picc placement. Requesting IM medications for nasuea, provider aware and medicated per nov
--- NOTE | 2023-12-29 11:25 | PC.NURSE ---
Patient oob ambualting to bathroom. Reports feeling better but states still feels nauseous. Aware that MD teixeira is for NG tube placement. Patient stating she will think about it and let us know
--- NOTE | 2023-12-29 11:48 | PC.NURSE ---
Patient reports feeling better but would like NG tube placed after returning from PICC line placement
--- NOTE | 2023-12-29 12:23 | PC.NURSE ---
Brought to IR by transport
--- NOTE | 2023-12-29 14:57 | P.PICC_ITS ---
PICC Line Insertion NPICC Diagnosis: Bowel Obstruction Indication: No IV access Pertinent Labs: reviewed Technique: Following informed consent including risks, benefits and alternatives and using sterile technique including cap and mask, sterile gown, glove and drape, the arm was prepped and draped in the usual sterile fashion of full barrier technique with G. Following completion of [place] Protocol the skin and soft tissues were anesthetized with 1% Lidocaine plain. Using ultrasound guidance, right brachial vein access was obtained twice by Julieta Pollard RN, but unable to advance guidewire. Right brachial vein was accessed by Elvi Soto RN on second attempt. Over an 0.018 wire through peel-away sheath, a 5FR Double lumen PASV PICC line was positioned. Catheter length is 38 CM internal length, at the 0 CM raul- external length, for a total trimmed length of 38 CM. The procedure was performed in S272. Tip verification was performed by Bisi Adams with Sherlock 3CG. Tip located in SVC. Ultrasound was used to document vein patency and for needle entry. A formal ultrasound picture and cardiac rhythm strip was recorded. [employer] has released the line for use and it is currently dressed with a StatLock, Tegaderm, and CHG disc. Verification has been performed for blood return and line patency. Arm Circumference: 25 CM Equipment: [employer] PICC SOLO Catheter Type: 5FR double lumen PASV PICC Lot #: [id number]
[2023-12-29] MEDS: HYDROmorphone HCl 1 MG/ML SYRINGE IVPUSH ×2 (15:04→19:40)
[2023-12-29] MEDS: Dextrose 5 % and 0.9 % NaCl 1,000 ML 100 ML IVCONT (15:15)
[2023-12-29] MEDS: 0.9 % Sodium Chloride Flush 3 ML SYRINGE IVFLUSH (15:20)
--- NOTE | 2023-12-29 15:27 | HO.PM.IMCN ---
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 She was discharged on 12/08 and had been doing well. She reports she ate dinner last night and shortly after developed severe midabdominal pain associated with nausea and vomiting. She then had significant decrease in her ostomy output. Due to the persistence of pain, she presented to the ED where work up included CBC, BMP and LFTs which was significant for leukocytosis of 23.7 and BUN/Cr 42/1.[address] scan abd/pelvis obtained which showed proximal ileum is dilated with air-fluid level with marked constriction of the afferent loop at the rectus sheath. She reports her ostomy has began to function again and she has emptied it twice since being in the ED however still has nausea and abdominal pain. She is now admitted to general surgery with small bowel obstruction with ileostomy in place with consult placed hospitalist service for medical management. She has no complaints at this time. Reports nightly marijuana use but denies any other illicit substances. No alcohol or cigarette use. Review of Systems Review of Systems: Yes all other systems are reviewed and are negative [facility] Medical History (Updated 12/29/23 @ 15:30 by PATIENCE Rosenberg) Anxiety Irritable bowel syndrome with constipation PVC (premature ventricular contraction) Postop check Myocardial infarction Hypertension Barretts esophagus GERD (gastroesophageal reflux disease) Family History Father Colon cancer Paternal Aunt Colon cancer Surgical History (Updated 12/19/23 @ 14:44 by Jack Quan MD) H/O dilation and curettage History of exploratory laparotomy (05/11/23) History of esophagogastroduodenoscopy (EGD) Hx of colonoscopy Social History Household Members: None Housing: House Do you presently have visiting nurse or other home services: No Alcohol intake: never Patient Tobacco Use Status: Never used Tobacco Tobacco use type: Cigarette Cigarette Packs Per Day: 0.5 Cigarettes Per Day: 10.0 Years Smoked: 30 e-Cigarette/Vaping Use: Never Used Substance Use Type: Marijuana Advance Directives: Yes Advance Directives on File: Yes Advance Directives Date on File: 12/29/23 Do you have a plan to hurt others: No Plan Patient : No service: No Meds Allergies Allergy/AdvReac Type Severity Reaction Status Date / Time clams Allergy Severe Stomach Verified 12/29/23 02:48 Upset clavulanic acid [Augmentin] Allergy Unknown GI, Verified 12/29/23 02:48 Difficulty breathing codeine [CODEINE] Allergy Unknown SENSITIVIT Verified 12/29/23 02:48 Y erythromycin base Allergy Unknown GI, DIFF Verified 12/29/23 02:48 [Erythromycin Base] BREATHING NSAIDS (Non-Steroidal Allergy Unknown GI UPSET Verified 12/29/23 02:48 Anti-Inflamma [NSAIDS (NON-STEROIDAL ANTI-INFLAMMA] Sulfa (Sulfonamide Allergy Unknown RASH Verified 12/29/23 02:48 Antibiotics) morphine [MORPHINE] AdvReac Severe NAUSEA Verified 12/29/23 02:48 aspirin [Aspirin] AdvReac Mild STOMACH Verified 12/29/23 02:48 UPSET Active Medications: Current Medications Heparin Sodium (Porcine) (Heparin Sodium,Porcine 5,000 Unit/Ml Vial) 5,000 unit SUBCUT Q12H COUNTS INCLUDE 234 BEDS AT THE [facility] Last Admin: 12/29/23 10:12 Dose: 5,000 unit Hydromorphone HCl (Hydromorphone Hcl 1 Mg/Ml Syringe) 1 mg IVPUSH Q3H PRN; Protocol PRN Reason: Pain, Severe (Pain Scale 7-10) Last Admin: 12/29/23 15:04 Dose: 1 mg Dextrose/Sodium Chloride (D5ns) 1,000 mls @ 100 mls/hr IVCONT .Q10H [facility] Last Admin: 12/29/23 15:15 Dose: 100 mls/hr Ondansetron HCl (Ondansetron Hcl 4 Mg/2 Ml Vial) 4 mg IVPUSH Q6H PRN PRN Reason: Nausea and Vomiting Last Admin: 12/29/23 15:02 Dose: 4 mg Promethazine HCl (Promethazine Hcl 25 Mg/Ml Vial) 12.5 mg IM Q6H PRN PRN Reason: Nausea and Vomiting Last Admin: 12/29/23 10:09 Dose: 12.5 mg Sodium Chloride (0.9 % Sodium Chloride Flush 3 Ml Syringe) 3 [facility] AT [facility] Last Admin: 12/29/23 15:20 Dose: 3 ml Home Medications ?Medication ?Instructions ?Recorded ?Confirmed ?Last Taken ?Type atorvastatin 20 mg tablet 20 mg PO BEDTIME 03/01/23 12/29/23 12/28/23 History esomeprazole magnesium 40 mg 20 mg PO BID 03/01/23 12/29/23 12/28/23 History capsule,delayed release (Nexium) hydrochlorothiazide 25 mg tablet 25 mg PO DAILY 03/01/23 12/29/23 12/28/23 History multivitamin 1 tab PO DAILY 05/04/23 12/29/23 12/28/23 History carvedilol 6.25 mg tablet 6.25 mg PO BID 10/13/23 12/29/23 12/28/23 History losartan 25 mg tablet 25 mg PO DAILY 10/13/23 12/29/23 12/28/23 History potassium chloride 10 mEq 10 meq PO BID 10/13/23 12/29/23 12/28/23 History capsule,extended release calcium carbonate 600 mg-vitamin 1 tab PO DAILY 11/30/23 12/29/23 12/28/23 History D3 5 mcg (200 unit) tablet (Calcium 600 + D(3)) lorazepam 1 mg tablet 1 mg PO BEDTIME PRN anxiety 11/30/23 12/29/23 12/28/23 History mirtazapine 15 mg tablet 15 mg PO BEDTIME 11/30/23 12/29/23 12/28/23 History Physical Exam Vital Signs and Narrative: Vital Signs: Last Vital Signs Temp 98.7 F 12/29/23 15:18 Pulse 113 H 12/29/23 15:18 Resp 18 12/29/23 15:18 BP 132/74 12/29/23 15:18 Pulse Ox 98 12/29/23 15:18 O2 Del Method Room Air 12/29/23 15:18 BMI result Body Mass Index 23.8 Constitutional - Awake and Alert, No apparent distress Eyes - PERRLA, EOMI Cardiovascular - S1S2, RRR, No edema Respiratory - Normal lung expansion, Normal respiratory effort, No respiratory distress, CTA bilaterally Extremities - no calf tenderness bilaterally, no swelling Skin - Warm/Dry Neurological - Alert & oriented x3 Psychological - Appropriate affect Results Labs 12/29/23 03:06 12/29/23 03:06 Labs: Laboratory Results - last 24 hr 12/29/23 12/29/23 03:06 06:16 MCV 85.4 MCH 28.9 MCHC 33.8 RDW 13.9 Plt Count 325 D MPV 9.0 L Immature Gran % (Auto) 0.5 H Neut % (Auto) 75.6 H Lymph % (Auto) 16.6 L [place] % (Auto) 5.4 Eos % (Auto) 1.6 Baso % (Auto) 0.3 Lymph # (Auto) 3.9 [place] # (Auto) 1.3 H Eos # (Auto) 0.4 Baso # (Auto) 0.1 Abs Immat Gran (auto) 0.13 H Absolute Neuts (auto) 17.9 H Absolute Nucleated RBC 0.000 Nucleated RBC % (auto) 0.0 Anion Gap 18 Estim Creat Clear Calc 34.0 Estimated GFR 41 Random Glucose 135 H Calcium 9.6 D Total Bilirubin 0.4 AST 48 H ALT 49 H Alkaline Phosphatase 174 H Total Protein 9.8 H Albumin 4.1 Lipase 31 Urine Color Yellow Urine Appearance Clear Urine pH 5.0 Ur Specific [place] >= 1.030 H Urine Protein Trace Urine Glucose (UA) Negative Urine Ketones Negative Urine Blood Negative Urine Nitrite Negative Ur Leukocyte Esterase Trace H Urine RBC 0-2 Urine WBC 0-5 Ur Squamous Epith Cells 0-2 Urine Bacteria None Seen Hyaline Casts 3-5 Granular Casts Present Influenza Type A (PCR) NEGATIVE Influenza Type B (PCR) NEGATIVE RSV RNA Qual (PCR) NEGATIVE SARS-CoV-2 RNA (RT-PCR) NEGATIVE Imaging Radiologist's Impressions: Impressions Abdomen/Pelvis CT 12/29/23 05:00 IMPRESSION: 1. Interval performance of laparotomy, successful clearance of left pelvic abscesses, performance of sigmoid colon and rectosigmoid junction anastomosis. 2. Interval construction of Right suprapubic double barrel ileostomy with marked constriction of the afferent loop at the rectus sheath, progressive fluid distention of the efferent loop compatible with intestinal obstruction. 3. Midline infraumbilical laparotomy fibrotic scar is present with extensive subcutaneous abnormal enhancing soft tissue and air pockets, thickening of rectus sheath. Postsurgical cellulitis and fasciitis cannot be excluded. Clinical correlation is recommended. 4. There is moderate fluid distention of the rectum. Assessment and Plan (1) Small bowel obstruction: Status: Acute (2) Ileostomy in place: Status: Acute Plan Kia Phelps is a 63 year old female with PMH of NSTEMI, hypertension, GERD, anxiety, hyperlipidemia and extensive surgical hx well known to the surgical service admitted to general surgery for management of small-bowel obstruction with ileostomy in place with consult placed hospitalist service for medical management. # small-bowel obstruction with ileostomy in place -plan per orthopedic surgery. Conservative management for now per General surgery -pain management per General surgery # hypertension -blood pressure is reasonably controlled but have been soft related to narcotic use. -recommend continuing carvedilol 6.25 mg b.i.d.. Hold hydrochlorothiazide and losartan in setting of MARKIE # hyperlipidemia -continue statin # GERD -PPI # anxiety -lorazepam p.r.n. Thank you for allowing me to participate in this consult. Signing off at this time. Please do not hesitate to call for further questions or for any acute medical issues
--- NOTE | 2023-12-29 16:48 | PC.NURSE ---
Patient continues to decline NG tube stating she is feeling better
[2023-12-29] MEDS: Mirtazapine 15 MG TABLET PO (21:22)
[2023-12-29] MEDS: carvediloL 6.25 MG TABLET PO (21:22)
[2023-12-29] MEDS: Atorvastatin Calcium 20 MG TABLET PO (21:46)
[2023-12-30] MEDS: HYDROmorphone HCl 1 MG/ML SYRINGE IVPUSH ×5 (01:10→20:44)
[2023-12-30] MEDS: Promethazine HCL 25 MG/ML VIAL 12.5 MG IM (01:10)
[2023-12-30] MEDS: Dextrose 5 % and 0.9 % NaCl 1,000 ML 100 ML IVCONT ×3 (01:15→20:50)
[2023-12-30 03:53] VITALS: BP 105/59; PULSE 74; RESP 16; TEMP 36.2; O2SAT 99
[2023-12-30] MEDS: Omeprazole 20 MG CAPSULE.DR PO (06:02)
[2023-12-30 08:00] VITALS: BP 105/66; PULSE 78; RESP 16; TEMP 36.5; O2SAT 99
[2023-12-30 08:28] VITALS: BP 105/66; PULSE 78
[2023-12-30] MEDS: Heparin Sodium,Porcine 5,000 UNIT/ML VIAL 5000 UNIT SUBCUT ×2 (08:28→20:43)
[2023-12-30] MEDS: carvediloL 6.25 MG TABLET PO ×2 (08:28→20:43)
[2023-12-30] MEDS: Calcium + Vitamin D 250 MG TABLET 500 MG PO (08:28)
[2023-12-30] MEDS: Potassium Chloride ER 10 MEQ TABLET.ER PO ×2 (08:29→20:42)
[2023-12-30] MEDS: Multivitamin TABLET 1 TAB PO (08:29)
[2023-12-30] MEDS: ondansetron HCL 4 MG/2 ML VIAL IVPUSH (08:50)
[2023-12-30 08:56] LABS: Alanine Aminotransferase 29 U/L (0-31); Albumin Level 3.1 g/dL (3.5-5.0); Alkaline Phosphatase 107 U/L (39-117); Anion Gap 15 (12-20); Aspartate Amino Transferase 25 U/L (5-31); Bilirubin Total 0.3 mg/dL (0.0-1.0); Blood Urea Nitrogen 23 mg/dL (9-16); Calcium 8.3 mg/dL (8.4-10.2); Carbon Dioxide 17 mmol/L (22-29); Chloride 109 mmol/L (96-108); Creatinine Clr Calc Pharmacy 65.1; Estimated Glomerular Filt Rate > 60; Glucose Random 124 mg/dL (60-115); Potassium 3.1 mmol/L (3.3-5.1); Sodium 138 mmol/L (135-145); Total Protein 7.1 g/dL (6.5-8.0)
--- NOTE | 2023-12-30 09:38 | P.PNGS_ITS ---
Subjective Subjective Date of Service: 12/30/23 Interval history: Overall patient feels improved this morning after having several bowel movements per her ostomy. She does occasionally have waves of pain consistent with a colicky pain. Physical Exam 2 Vital Signs: Vital Signs: Last Vital Signs Temp 97.7 F 12/30/23 08:00 Pulse 78 12/30/23 08:28 Resp 16 12/30/23 08:00 BP 105/66 12/30/23 08:28 Pulse Ox 99 12/30/23 08:00 O2 Del Method Room Air 12/30/23 08:00 BMI result Body Mass Index 23.8 Const: General: no acute distress Nutritional Appearance: well nourished Orientation/consciousness: patient oriented x3 Limitations: no limitations Resp: Effort & Inspection: normal respiratory effort, no cough and no respiratory distress GI: Other: Midline incision with leaking from the mid incision. Dressings changed with clean dry dressing. Ostomy is pink and patent with liquid stool. Skin: Other: Warm, dry, no rash Neuro: General: patient oriented x3 Extrem: Other: No edema Objective Data Active Medications Atorvastatin Calcium (Atorvastatin Calcium 20 Mg Tablet) 20 mg PO BEDTIME [facility] Last Admin: 12/29/23 21:46 Dose: 20 mg Documented By: JOSE EDUARDO Calcium Carbonate/Cholecalciferol (Calcium + Vitamin D 250 Mg Tablet) 500 mg PO DAILY [facility] Last Admin: 12/30/23 08:28 Dose: 500 mg Documented By: JOAQUIN Carvedilol (Carvedilol 6.25 Mg Tablet) 6.25 mg PO BID [facility]; Protocol Last Admin: 12/30/23 08:28 Dose: 6.25 mg Documented By: JOAQUIN Heparin Sodium (Porcine) (Heparin Sodium,Porcine 5,000 Unit/Ml Vial) 5,000 unit SUBCUT Q12H [facility] Last Admin: 12/30/23 08:28 Dose: 5,000 unit Documented By: JOAQUIN Hydromorphone HCl (Hydromorphone Hcl 1 Mg/Ml Syringe) 1 mg IVPUSH Q3H PRN; Protocol PRN Reason: Pain, Severe (Pain Scale 7-10) Last Admin: 12/30/23 08:50 Dose: 1 mg Documented By: JOAQUIN Dextrose/Sodium Chloride (D5ns) 1,000 mls @ 100 mls/hr IVCONT .Q10H [facility] Last Admin: 12/30/23 01:15 Dose: 100 mls/hr Documented By: JOSE EDUARDO Lorazepam (Lorazepam 1 Mg Tablet) 1 mg PO BEDTIME PRN PRN Reason: anxiety Mirtazapine (Mirtazapine 15 Mg Tablet) 15 mg PO BEDTIME [facility] Last Admin: 12/29/23 21:22 Dose: 15 mg Documented By: JOSE EDUARDO Multivitamins/Vitamin C (Multivitamin Tablet) 1 tab PO DAILY [facility] Last Admin: 12/30/23 08:29 Dose: 1 tab Documented By: JOAQUIN Omeprazole (Omeprazole 20 Mg Capsule.Dr) 20 mg PO DAILY@0630 [facility] Last Admin: 12/30/23 06:02 Dose: 20 mg Documented By: JOSE EDUARDO Ondansetron HCl (Ondansetron Hcl 4 Mg/2 Ml Vial) 4 mg IVPUSH Q6H PRN PRN Reason: Nausea and Vomiting Last Admin: 12/30/23 08:50 Dose: 4 mg Documented By: JOAQUIN Potassium Chloride (Potassium Chloride Er 10 Meq Tablet.Er) 10 meq PO BID [facility] Last Admin: 12/30/23 08:29 Dose: 10 meq Documented By: JOAQUIN Promethazine HCl (Promethazine Hcl 25 Mg/Ml Vial) 12.5 mg IM Q6H PRN PRN Reason: Nausea and Vomiting Last Admin: 12/30/23 01:10 Dose: 12.5 mg Documented By: JOSE EDUARDO Sodium Chloride (0.9 % Sodium Chloride Flush 3 Ml Syringe) 3 ml IVFLUSH QSHIFT [facility] Last Admin: 12/30/23 07:51 Dose: Not Given Documented By: JOAQUIN Non-Admin Reason: IV Running Labs 12/29/23 03:06 12/30/23 08:10 Labs: Laboratory Results - last 24 hr 12/30/23 08:10 Anion Gap 15 Estim Creat Clear Calc 65.1 Estimated GFR > 60 Random Glucose 124 H Calcium 8.3 L D Total Bilirubin 0.3 AST 25 ALT 29 Alkaline Phosphatase 107 Total Protein 7.1 Albumin 3.1 L Procedures Date of Service Date of Service: 12/30/23 Progress Note: A&P Assessment and plan (1) Small bowel obstruction: Status: Acute (2) Ileostomy in place: Status: Acute Plan Patient readmitted with hospitalist small-bowel obstruction although she is now producing a large amount of liquid stool per ostomy. Patient reports emptying the ostomy several times yesterday. Overall her abdominal pain is improved. Patient has a PICC line in place although she is unable to have blood drawn from the PICC line. Repeat labs could not be drawn. We will continue to monitor output, bolus as needed. Time Spent With Patient Time: Total time managing care of this patient today ____ minutes. Quality Stroke Does the patient have a stroke diagnosis?: No VTE Prior VTE?: No VTE Risk Level:: Medical - moderate - high VTE Device Contraindication: N/A - Device Ordered VTE Drug Contraindication: N/A - Med Ordered
--- NOTE | 2023-12-30 09:55 | MHC.CM.PN ---
EMR REVIEWED, PT ADMITTED W/PARTIAL SBO, CM MET W/PT WHO REPORTS SHE IS FULLY INDEP W/ALL CARE, PT DOES HAVE A CANE WHICH SHE USES FOR VERY LONG DISTANCES D/T KNEES. PT'S GOAL FOR DC IS TO RETURN HOME AND RESUME COMFORT PLUS [facility] FOR SN, PT WILL ARRANGE TRANSPORT. PT VERIFIES PCP AND HCP ON FILE ARE CORRECT.
[2023-12-30 15:55] VITALS: BP 112/55; PULSE 72; RESP 16; TEMP 36.4; O2SAT 98
[2023-12-30 20:00] VITALS: BP 112/64; PULSE 78; RESP 18; TEMP 36.2; O2SAT 98
[2023-12-30] MEDS: Mirtazapine 15 MG TABLET PO (20:42)
[2023-12-30 20:43] VITALS: BP 112/64; PULSE 78
[2023-12-30] MEDS: Atorvastatin Calcium 20 MG TABLET PO (20:43)
[2023-12-31] MEDS: HYDROmorphone HCl 1 MG/ML SYRINGE IVPUSH (02:10)
[2023-12-31 04:00] VITALS: BP 124/68; PULSE 84; RESP 18; TEMP 36.3; O2SAT 97
[2023-12-31] MEDS: Omeprazole 20 MG CAPSULE.DR PO (06:09)
[2023-12-31] MEDS: Dextrose 5 % and 0.9 % NaCl 1,000 ML 100 ML IVCONT (06:09)
[2023-12-31 08:00] VITALS: BP 114/60; PULSE 75; RESP 18; TEMP 36.7; O2SAT 99
[2023-12-31 08:31] VITALS: BP 114/60; PULSE 75
[2023-12-31] MEDS: Heparin Sodium,Porcine 5,000 UNIT/ML VIAL 5000 UNIT SUBCUT (08:31)
[2023-12-31] MEDS: carvediloL 6.25 MG TABLET PO (08:31)
[2023-12-31] MEDS: Potassium Chloride ER 10 MEQ TABLET.ER PO (08:31)
[2023-12-31] MEDS: Multivitamin TABLET 1 TAB PO (08:32)
[2023-12-31] MEDS: Calcium + Vitamin D 250 MG TABLET 500 MG PO (08:32)
--- NOTE | 2023-12-31 09:59 | P.PNGS_ITS ---
Subjective Subjective Date of Service: 12/31/23 Interval history: Patient feels much improved with no abdominal pain and continued output from her ostomy. She had breakfast this morning and tolerated it well and feels ready for discharge to home. Physical Exam 2 Vital Signs: Vital Signs: Last Vital Signs Temp 98.0 F 12/31/23 08:00 Pulse 75 12/31/23 08:31 Resp 18 12/31/23 08:00 BP 114/60 12/31/23 08:31 Pulse Ox 99 12/31/23 08:00 O2 Del Method Room Air 12/31/23 08:00 BMI result Body Mass Index 23.8 Const: General: no acute distress Nutritional Appearance: well nourished Orientation/consciousness: patient oriented x3 Limitations: no limitations Resp: Effort & Inspection: normal respiratory effort GI: Other: Ostomy patent and functioning Inspection: Yes normal to inspection Palpation (GI): Soft to palpation, nontender, no guarding and not rigid Neuro: General: patient oriented x3 Extrem: General: No edema Objective Data Active Medications Atorvastatin Calcium (Atorvastatin Calcium 20 Mg Tablet) 20 mg PO BEDTIME [facility] Last Admin: 12/30/23 20:43 Dose: 20 mg Documented By: JOSE EDUARDO Calcium Carbonate/Cholecalciferol (Calcium + Vitamin D 250 Mg Tablet) 500 mg PO DAILY [facility] Last Admin: 12/31/23 08:32 Dose: 500 mg Documented By: JOAQUIN Carvedilol (Carvedilol 6.25 Mg Tablet) 6.25 mg PO BID [facility]; Protocol Last Admin: 12/31/23 08:31 Dose: 6.25 mg Documented By: JOAQUIN Heparin Sodium (Porcine) (Heparin Sodium,Porcine 5,000 Unit/Ml Vial) 5,000 unit SUBCUT Q12H [facility] Last Admin: 12/31/23 08:31 Dose: 5,000 unit Documented By: JOAQUIN Hydromorphone HCl (Hydromorphone Hcl 1 Mg/Ml Syringe) 1 mg IVPUSH Q3H PRN; Protocol PRN Reason: Pain, Severe (Pain Scale 7-10) Last Admin: 12/31/23 02:10 Dose: 1 mg Documented By: JOSE EDUARDO Lorazepam (Lorazepam 1 Mg Tablet) 1 mg PO BEDTIME PRN PRN Reason: anxiety Mirtazapine (Mirtazapine 15 Mg Tablet) 15 mg PO BEDTIME [facility] Last Admin: 12/30/23 20:42 Dose: 15 mg Documented By: JOSE EDUARDO Multivitamins/Vitamin C (Multivitamin Tablet) 1 tab PO DAILY [facility] Last Admin: 12/31/23 08:32 Dose: 1 tab Documented By: JOAQUIN Omeprazole (Omeprazole 20 Mg Capsule.Dr) 20 mg PO DAILY@0630 [facility] Last Admin: 12/31/23 06:09 Dose: 20 mg Documented By: JOSE EDUARDO Ondansetron HCl (Ondansetron Hcl 4 Mg/2 Ml Vial) 4 mg IVPUSH Q6H PRN PRN Reason: Nausea and Vomiting Last Admin: 12/30/23 08:50 Dose: 4 mg Documented By: JOAQUIN Potassium Chloride (Potassium Chloride Er 10 Meq Tablet.Er) 10 meq PO BID [facility] Last Admin: 12/31/23 08:31 Dose: 10 meq Documented By: JOAQUIN Promethazine HCl (Promethazine Hcl 25 Mg/Ml Vial) 12.5 mg IM Q6H PRN PRN Reason: Nausea and Vomiting Last Admin: 12/30/23 01:10 Dose: 12.5 mg Documented By: JOSE EDUARDO Sodium Chloride (0.9 % Sodium Chloride Flush 3 Ml Syringe) 3 ml IVFLUSH QSHIFT [facility] Last Admin: 12/31/23 06:59 Dose: Not Given Documented By: JOAQUIN Non-Admin Reason: IV Running Labs 12/29/23 03:06 12/30/23 08:10 Procedures Date of Service Date of Service: 12/31/23 Progress Note: A&P Assessment and plan (1) Small bowel obstruction: Status: Acute (2) Ileostomy in place: Status: Acute Plan 63-year-old female patient multiple surgical procedures, presenting with abdominal pain and evidence of a partial small-bowel obstruction. This has subsequently resolved and she is tolerating a regular diet without increased abdominal pain, nausea or vomiting. She requests discharge to home which certainly seems appropriate at this time. We will follow-up in the office in approximately 1 week and should call sooner for any return of the abdominal pain. She expressed understanding and agrees with the plan. Time Spent With Patient Time: Total time managing care of this patient today ____ minutes. Quality Stroke Does the patient have a stroke diagnosis?: No VTE Prior VTE?: No VTE Risk Level:: Medical - moderate - high VTE Device Contraindication: N/A - Device Ordered VTE Drug Contraindication: N/A - Med Ordered
--- NOTE | 2023-12-31 10:05 | MHC.CM.PN ---
DP: PT HAS BEEN MEDICALLY CLEARED FOR DC HOME, NO SERVICES. PT HAS OWN RIDE HOME
--- NOTE | 2023-12-31 10:58 | PC.NURSE ---
PICC line removed by Dr Oneil at bedside.
--- NOTE | 2024-01-03 10:38 | P.DS_ITS ---
DS: Providers Provider Date of Service: 12/31/23 Date of admission: 12/29/23 07:21 Date of discharge: 12/31/23 Primary care physician: Nessa Hillman NP Attending physician on admission: Jack Quan Consults: 12/29/23 07:23 Consult to Hospitalist Routine Comment: Consulting Provider: Hospitalist Reason For Exam: HTN, multiple meds Attending physician on discharge: Alvaro Oneil DS: Diagnosis Discharge Diagnosis (1) Small bowel obstruction: Status: Acute (2) Ileostomy in place: Status: Acute DS: Summary Hospital Course Hospital Course: HPI AT ADMISSION: Kia Phelps is a 63 year old female with PMH of NSTEMI and extensive surgical hx well known to the surgical service who underwent end to end anastomosis of the colon to the rectal stump and diverting loop ileostomy on 12/04/23 following initial leonard procedure May 2023 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 She was discharged on 12/08 and had been doing well. She reports she ate dinner last night and shortly after developed severe midabdominal pain associated with nausea and vomiting. She then had significant decrease in her ostomy output. Due to the persistence of pain, she presented to the ED where work up included CBC, BMP and LFTs which was significant for leukocytosis of 23.7 and BUN/Cr 42/1.[address] scan abd/pelvis obtained which showed proximal ileum is dilated with air- fluid level with marked constriction of the afferent loop at the rectus sheath. She reports her ostomy has began to function again and she has emptied it twice since being in the ED however still has nausea and abdominal pain. HOSPITAL COURSE: She was admitted to the surgical service for further treatment ok her PSBO, MARKIE. Conservative measures were continued with IVF, PRN analgesics/antiemetics. PICC line obtained as patient had hx of difficulty IV access. Her abdominal pain improved and she began to have increasing output from her ostomy. She was advanced to clear liquids and then solid diet as tolerated. On the day of discharge, she was tolerating a solid diet without nausea or vomiting and had no abdominal pain. Her abdomen was benign and nontender with good ostomy output. She felt ready for discharge to home. She was discharged to home on 12/31/23 in stable condition. Status at Discharge Functional status at discharge: independent ambulation Time Attestation Discharge Coordination Time (in mins): 30 Quality: Safe Use of Opioids Does Pt have an Active Cancer Diagnosis on the Problem List?: No Quality: Stroke Does the patient have a stroke diagnosis?: No Physical Exam Vital Signs: Vital Signs: Last Vital Signs Temp 98.0 F 12/31/23 08:00 Pulse 75 12/31/23 08:31 Resp 18 12/31/23 08:00 BP 114/60 12/31/23 08:31 Pulse Ox 99 12/31/23 08:00 O2 Del Method Room Air 12/31/23 08:00 BMI result Body Mass Index 23.8 DS: Data Data Completed and Pending Completed studies during hospitalization [Text1]: Procedures Bypass Ileum to Cutaneous, Open Approach (11/30/23) Bypass Sigmoid Colon to Cutaneous, Open Approach (05/04/23) Dilation of Left Ureter with Intraluminal Device, Via Natural or Artificial Opening Endoscopic (05/04/23) Drainage of Pelvic Cavity, Percutaneous Approach (05/04/23) Excision of Sigmoid Colon, Open Approach (05/04/23) Excision of Small Intestine, Open Approach (05/04/23) Fluoroscopy of Left Kidney, Ureter and Bladder (05/04/23) Insertion of Infusion Device into Right Brachial Vein, Percutaneous Approach (11/30/23) Insertion of Infusion Device into Superior Vena Cava, Percutaneous Approach (11/30/23) Introduction of Vasopressor into Peripheral Vein, Percutaneous Approach (05/04/23) Release Peritoneum, Open Approach (11/30/23) Reposition Rectum, Open Approach (11/30/23) Transfusion of Nonautologous Red Blood Cells into Peripheral Vein, Percutaneous Approach (05/04/23) Ultrasonography of Superior Vena Cava, Guidance (11/30/23) Discharge Plan Discharge Anticipated Discharge Date/Time: 12/31/23 10:11 Patient Disposition: Home, Self-Care Discharge Diagnosis: Partial small-bowel obstruction Referrals: Nessa Hillman NP [Primary Care Provider] - 1 Week Jack Quan MD [Physician] - 1 Week Discharge Medications: Continued multivitamin Tablet 1 tab PO DAILY mirtazapine 15 mg tablet 15 mg PO BEDTIME lorazepam 1 mg tablet 1 mg PO BEDTIME PRN (Reason: anxiety) calcium carbonate-vitamin D3 [Calcium 600 + D(3)] 600 mg-5 mcg (200 unit) Tabl et 1 tab PO DAILY hydrochlorothiazide 25 mg tablet 25 mg PO DAILY Hold Instructions: Resume on 06/07/23. per MD atorvastatin 20 mg tablet 20 mg PO BEDTIME esomeprazole magnesium [Nexium] 40 mg capsule,delayed release(DR/EC) 20 mg PO BID potassium chloride 10 mEq capsule, extended release 10 meq PO BID losartan 25 mg tablet 25 mg PO DAILY carvedilol 6.25 mg tablet 6.25 mg PO BID Discharge Orders: Discharge Order (Routine); Ordered 12/31/23 Ordered By: Alvaro Oneil Diet: Advance to usual diet Activity on Discharge: No Restrictions Stand Alone Forms: Patient Portal Discharge page Print Language: Citizen Of [place] Care Plan Goals: Resumed normal diet and activity Health Concerns: Partial small-bowel obstruction, abdominal pain Plan of Treatment: Bowel rest, IV hydration Assessment: Partial small-bowel obstruction Discharge Date/Time: 12/31/23 11:55
== END 2023-12-31 11:55 | disposition home or self-care (01) | DRG 247 ==
LOC: HO.ED 08:07 → HO.EDOVER 08:17 → HO.S3 16:46
PROVIDERS: Admitting Provider Surgery; Emergency Provider Emergency Medicine; PCP Nurse Practitioner Family; Visit Provider Surgery
DX: K56.600 Partial intestinal obstruction, unspecified as to cause (principal); N17.9 Acute kidney failure, unspecified; E78.5 Hyperlipidemia, unspecified; K21.9 Gastro-esophageal reflux disease without esophagitis; I10 Essential (primary) hypertension; E86.0 Dehydration; F41.9 Anxiety disorder, unspecified; Z93.2 Ileostomy status; Z20.822 Contact with and (suspected) exposure to COVID-19; Z79.899 Other long term (current) drug therapy
CPT/HCPCS: 0241U; 36415; 36573; 74177; 80053; 81001; 81003; 83690; 85025; 99285; C1751; C1894; J1170; J1644; J2405; J2550; Q9967

== ENCOUNTER → 2023-12-29 07:21 | Outpatient (BNV) | payer OTHER, SELFPAY | PROVIDERS: Admitting Provider Surgery; Emergency Provider Emergency Medicine; PCP Nurse Practitioner Family; Visit Provider Physician Assistant | DX: K56.609 Unspecified intestinal obstruction, unspecified as to partial versus complete obstruction (principal); Z93.2 Ileostomy status | CPT/HCPCS: 99222 ==

== ENCOUNTER → 2023-12-29 07:21 | Outpatient (BNV) | payer OTHER, SELFPAY | PROVIDERS: Admitting Provider Surgery; Emergency Provider Emergency Medicine; Visit Provider Physician Assistant Surgical | DX: K56.609 Unspecified intestinal obstruction, unspecified as to partial versus complete obstruction (principal); Z93.2 Ileostomy status | CPT/HCPCS: 99024 ==

== ENCOUNTER 2024-01-06 20:16 | Inpatient (IN) | payer OTHER, SELFPAY ==
--- NOTE | ~2024-01-06 | XR_ITS ---
EXAMINATION: XR CHEST CLINICAL INFORMATION: Chest pain, cough COMPARISON: 05/15/2023 TECHNIQUE: Frontal view of the chest was obtained. FINDINGS: Lung volumes are symmetric. No focal consolidation is seen. No evidence of pneumothorax, pleural effusion, or pulmonary edema. The cardiomediastinal contour is unremarkable. No acute osseous findings are seen. XR/XR chest 1V IMPRESSION: No acute cardiopulmonary findings.
[2024-01-06 20:19] VITALS: BP 113/69; PULSE 95; RESP 21; TEMP 36.4; O2SAT 98
[2024-01-06 20:22] VITALS: BP 102/70; PULSE 94; O2SAT 95
--- NOTE | 2024-01-06 20:25 | ECG_ITS ---
Test Reason : CHEST PAIN Blood Pressure : / mmHG Vent. Rate : 091 BPM Atrial Rate : 091 BPM P-R Int : 138 ms QRS Dur : 066 ms QT Int : 372 ms P-R-T Axes : 008 050 061 degrees QTc Int : 457 ms Normal sinus rhythm Nonspecific ST and T wave abnormality Abnormal ECG When compared with ECG of 02-DEC-2023 13:55, Nonspecific T wave abnormality, improved in Anterolateral leads Referred By: Generic ED Physician Electronically Signed By:TERELL PATEL
[2024-01-06 20:28] VITALS: BP 113/69; PULSE 90; RESP 21; TEMP 36.4; O2SAT 98; BMI 24.2
[2024-01-06 21:06] LABS: Basophils Absolute Auto 0.1 X10*3/uL (0.0-0.2); Basophils Percent Auto 0.4 % (0-2); Eosinophils Absolute Auto 0.4 X10*3/uL (0.0-0.4); Eosinophils Percent Auto 2.2 % (0-4); Hematocrit 33.1 % (37.0-47.0); Hemoglobin 11.4 g/dl (12.0-16.0); Imm Gran Abs Auto 0.14 X10*3/uL (0.00-0.03); Imm Gran Pct Auto 0.8 % (0.0-0.4); Lymphocytes Absolute Auto 3.5 X10*3/uL (1.2-4.9); Lymphocytes Percent Auto 21.1 % (20-40); MANUAL DIFF FLAG SCAN; Mean Corpuscular HGB Conc 34.4 g/dl (31.0-35.0); Mean Corpuscular Hemoglobin 29.5 pg (27.0-33.0); Mean Corpuscular Volume 85.8 fL (80.0-98.0); Monocytes Absolute Auto 1.5 X10*3/uL (0.1-1.2); Monocytes Percent Auto 9.2 % (2-11); Neutrophils Percent Auto 66.3 % (45-73); Platelet Count 338 X10*3/uL (160-400); Red Blood Count 3.86 X10*6/uL (4.20-5.50); Red Cell Distribution Width 13.5 % (11.0-16.0); SCAN SMEAR FLAG 1; White Blood Count 16.6 X10*3/uL (4.8-10.8)
--- NOTE | 2024-01-06 21:14 | ED.CHESTPAIN ---
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 Patient comes here for chest pain localized in mid sternum since early am today no shortness a breath no cough pain radiates to the neck and the jaw and upper chest no diaphoresis no nausea no vomiting no abdominal pain ileostomy has regular drainage Related Data Home Medications ?Medication ?Instructions ?Recorded ?Confirmed atorvastatin 20 mg tablet 20 mg PO BEDTIME 03/01/23 12/29/23 esomeprazole magnesium 40 mg 20 mg PO BID 03/01/23 12/29/23 capsule,delayed release (Nexium) hydrochlorothiazide 25 mg tablet 25 mg PO DAILY 03/01/23 12/29/23 multivitamin 1 tab PO DAILY 05/04/23 12/29/23 carvedilol 6.25 mg tablet 6.25 mg PO BID 10/13/23 12/29/23 losartan 25 mg tablet 25 mg PO DAILY 10/13/23 12/29/23 potassium chloride 10 mEq 10 meq PO BID 10/13/23 12/29/23 capsule,extended release calcium carbonate 600 mg-vitamin 1 tab PO DAILY 11/30/23 12/29/23 D3 5 mcg (200 unit) tablet (Calcium 600 + D(3)) lorazepam 1 mg tablet 1 mg PO BEDTIME PRN anxiety 11/30/23 12/29/23 mirtazapine 15 mg tablet 15 mg PO BEDTIME 11/30/23 12/29/23 Allergies Allergy/AdvReac Type Severity Reaction Status Date / Time clams Allergy Severe Stomach Verified 01/06/24 20:35 Upset clavulanic acid [Augmentin] Allergy Unknown GI, Verified 01/06/24 20:35 Difficulty breathing codeine [CODEINE] Allergy Unknown SENSITIVIT Verified 01/06/24 20:35 Y erythromycin base Allergy Unknown GI, DIFF Verified 01/06/24 20:35 [Erythromycin Base] BREATHING NSAIDS (Non-Steroidal Allergy Unknown GI UPSET Verified 01/06/24 20:35 Anti-Inflamma [NSAIDS (NON-STEROIDAL ANTI-INFLAMMA] Sulfa (Sulfonamide Allergy Unknown RASH Verified 01/06/24 20:35 Antibiotics) morphine [MORPHINE] AdvReac Severe NAUSEA Verified 01/06/24 20:35 aspirin [Aspirin] AdvReac Mild STOMACH Verified 01/06/24 20:35 UPSET Review of Systems Review of Systems: Yes all other systems are reviewed and are negative [facility] Past Medical History Medical History (Updated 01/07/24 @ 04:46 by Tye San MD) Anxiety Irritable bowel syndrome with constipation PVC (premature ventricular contraction) Postop check Myocardial infarction Hypertension Barretts esophagus GERD (gastroesophageal reflux disease) Surgical History (Updated 01/07/24 @ 03:53 by Tye San MD) Status post cardiac catheterization H/O dilation and curettage History of exploratory laparotomy (05/11/23) History of esophagogastroduodenoscopy (EGD) Hx of colonoscopy Family History Family History Father Colon cancer Paternal Aunt Colon cancer Social History Social History Household Members: None Housing: House Do you presently have visiting nurse or other home services: Yes Alcohol intake: never Patient Tobacco Use Status: Never used Tobacco Tobacco use type: Cigarette Cigarette Packs Per Day: 0.5 Cigarettes Per Day: 10.0 Years Smoked: 30 e-Cigarette/Vaping Use: Never Used Use of substances other than those prescribed or required for medical reasons: No Substance Use Type: Marijuana Advance Directives: Yes Advance Directives on File: Yes Advance Directives Date on File: 12/29/23 service: No Physical Exam Vital Signs: Vital Signs: Last Vital Signs Temp 98.3 F 01/07/24 02:41 Pulse 95 01/07/24 02:41 Resp 17 01/07/24 02:41 BP 106/65 01/07/24 02:41 Pulse Ox 99 01/07/24 02:41 O2 Del Method Room Air 01/07/24 02:41 BMI result Body Mass Index 24.2 Appearance: Alert. Oriented X3. No acute distress. Eyes: No pallor or icterus ENT: Pharynx normal. Oral Mucosa moist Neck: Normal inspection. Neck supple. CVS: Normal heart rate and rhythm. Pulses normal. Respiratory: No respiratory distress. Equal air entry bilateral, no wheezing/rales/rhonchi Abdomen: Soft and nontender. Bowel sounds are present, no mass palpable, no CVA tenderness ileostomy in place Skin: Skin warm and dry. Normal skin color. Normal skin turgor. Extremities: No lower extremity edema. No calf tenderness Neuro: Oriented X 3. Medications Administered Generic Name Dose Route Start Last Admin Trade Name Freq PRN Reason Stop Dose Admin Potassium Chloride 10 meq in 100 mls @ 100 mls/hr 01/07/24 03:00 01/07/24 04:01 Potassium Chloride/H20 IV 01/07/24 04:59 100 mls/hr Q1H ARISTIDES Administration Discontinued Medications Generic Name Dose Route Start Last Admin Trade Name Freq PRN Reason Stop Dose Admin Al Hydroxide/Mg Hydroxide 30 ml 01/06/24 23:14 01/06/24 23:41 Magnesium Hydrox/Alum Hydrox 30 Ml Oral.Susp PO 01/06/24 23:15 30 ml ONCE ONE Administration Hydromorphone HCl 1 mg 01/06/24 21:47 01/06/24 22:10 Hydromorphone Hcl 1 Mg/Ml Syringe IVPUSH 01/06/24 21:48 1 mg ONCE ONE Administration Protocol Hydromorphone HCl 1 mg 01/06/24 23:14 01/06/24 23:41 Hydromorphone Hcl 1 Mg/Ml Syringe IVPUSH 01/06/24 23:15 1 mg ONCE ONE Administration Protocol Sodium Chloride 1,000 mls @ 999 mls/hr 01/06/24 21:39 01/06/24 23:24 Ns IV 01/06/24 22:39 Infused .Q1H1M ONE Infusion Potassium Chloride 10 meq in 100 mls @ 100 mls/hr 01/06/24 21:45 01/07/24 00:40 Potassium Chloride/H20 IV 01/06/24 23:44 Infused Q1H ARISTIDES Infusion Magnesium Sulfate 2 gm in 50 mls @ 150 mls/hr 01/06/24 22:18 01/06/24 22:44 Magnesium Sulfate/H2o IV 01/06/24 22:37 Infused ONCE ONE Infusion Magnesium Sulfate 2 gm in 50 mls @ 150 mls/hr 01/07/24 02:58 01/07/24 03:29 Magnesium Sulfate/H2o IV 01/07/24 03:17 150 mls/hr ONCE ONE Administration Magnesium Oxide 800 mg 01/06/24 23:14 01/06/24 23:41 Magnesium Oxide 400 Mg Tablet PO 01/06/24 23:15 800 mg ONCE ONE Administration Ondansetron HCl 4 mg 01/06/24 21:47 01/06/24 22:10 Ondansetron Hcl 4 Mg/2 Ml Vial IVPUSH 01/06/24 21:48 4 mg ONCE ONE Administration Potassium Bicarbonate 50 meq 01/06/24 21:39 01/06/24 22:10 Potassium Bicarbonate/Cit Ac 25 Meq Tablet.Eff PO 01/06/24 21:40 50 meq ONCE ONE Administration Medical Decision Making Medical Decision Making [facility] Narrative: Patient is status post ileostomy significant hypokalemia and hypomagnesemia received 2 g of magnesium and p.o. magnesium along with IV potassium still potassium level is 2.8 and magnesium level is 1.2 will give her more IV potassium and magnesium likely the loss of electrolyte are from the ileostomy will admit patient for IV replacement therapy workup is negative for ACS Differential Diagnosis Differential Diagnoses: The differential diagnosis associated with the presentation includes ACS/metabolic etiology/chronic pain syndrome Admission/Observation Consideration of admission/observation: Escalation of care including admission/observation considered Consult Healthcare Provider Management of the patient was discussed with: Hospitalist Lab Data [facility] Lab Attestation statement: I reviewed the patient's lab results. 01/06/24 21:01 01/07/24 02:39 Labs: Lab Results 01/06/24 01/06/24 01/07/24 Range/Units 21:01 22:30 02:39 WBC 16.6 H (4.8-10.8) X10*3/uL RBC 3.86 L (4.20-5.50) X10*6/uL Hgb 11.4 L (12.0-16.0) g/dl Hct 33.1 L (37.0-47.0) % MCV 85.8 (80.0-98.0) fL MCH 29.5 (27.0-33.0) pg MCHC 34.4 (31.0-35.0) g/dl RDW 13.5 (11.0-16.0) % Plt Count 338 (160-400) X10*3/uL MPV 9.0 L (9.4-12.3) fL Immature Gran % (Auto) 0.8 H (0.0-0.4) % Neut % (Auto) 66.3 (45-73) % Lymph % (Auto) 21.1 (20-40) % Stanley % (Auto) 9.2 (2-11) % Eos % (Auto) 2.2 (0-4) % Baso % (Auto) 0.4 (0-2) % Lymph # (Auto) 3.5 (1.2-4.9) X10*3/uL Stanley # (Auto) 1.5 H (0.1-1.2) X10*3/uL Eos # (Auto) 0.4 (0.0-0.4) X10*3/uL Baso # (Auto) 0.1 (0.0-0.2) X10*3/uL Abs Immat Gran (auto) 0.14 H (0.00-0.03) X10*3/uL Absolute Neuts (auto) 11.0 H (2.0-8.3) x10*3/uL Absolute Nucleated RBC 0.000 (0.0-0.012) X10*3/uL Nucleated RBC % (auto) 0.0 (0.0-0.2) /100WBC Smear Tech's Comments VERIFIED Sodium 132 L 135 (135-145) mmol/L Potassium 2.7 L* 2.8 L* (3.3-5.1) mmol/L Chloride 103 107 (96-108) mmol/L Carbon Dioxide 14 L 14 L (22-29) mmol/L Anion Gap 18 17 (12-20) BUN 55 H 43 H (9-16) mg/dL Creatinine 1.46 H 1.00 (0.5-1.4) mg/dL Estim Creat Clear Calc 30.8 44.9 Estimated GFR 36 56 Random Glucose 107 128 H (60-115) mg/dL Calcium 7.9 L 7.5 L (8.4-10.2) mg/dL Magnesium < 0.6 L* 1.1 L* (1.6-2.6) mg/dL Troponin I High Sens 5.9 D 6.3 (<3.5-17.0) ng/L Independent Interpretation I performed an independent interpretation of an: EKG and Plain X-Ray Interpretation: Normal sinus rhythm heart rate 91 beats per minute normal interval normal axis nonspecific STT wave changes no acute ischemia Radiology Impression Discussion of test interpretation with radiology: I have reviewed the radiologist's reading. Critical Care Time Critical Care Time Critical Care Time: Yes Total Critical Care Time: 45 Attestation: The patient was critically ill with a high probability of imminent or life threatening deterioration. I spent greater than 50???minutes of discontinuous time evaluating the patient,delivering critical care at the bedside, discussing and evaluating pertinent data with consultants. Critical care time does not include time spent performing separately billable procedures or teaching. Total time spent performing critical care was 45??minutes. Discharge Plan Discharge Clinical Impression: Hypokalemia, Ileostomy in place, Hypomagnesemia, Chest pain Patient Disposition: Admitted As Inpatient
[2024-01-06 21:25] LABS: SLIDE REVIEW VERIFIED
[2024-01-06 21:28] LABS: Anion Gap 18 (12-20); Blood Urea Nitrogen 55 mg/dL (9-16); Calcium 7.9 mg/dL (8.4-10.2); Carbon Dioxide 14 mmol/L (22-29); Chloride 103 mmol/L (96-108); Creatinine Clr Calc Pharmacy 30.8; Estimated Glomerular Filt Rate 36; Glucose Random 107 mg/dL (60-115); Potassium 2.7 mmol/L (3.3-5.1); Sodium 132 mmol/L (135-145)
[2024-01-06 21:31] LABS: Troponin-I High Sensitivity 5.9 ng/L (<3.5-17.0)
[2024-01-06] MEDS: Potassium Chloride/H20 10 MEQ/100 ML PIGGYBACK 100 MEQ IV ×2 (22:09→23:40)
[2024-01-06] MEDS: HYDROmorphone HCl 1 MG/ML SYRINGE IVPUSH ×2 (22:10→23:41)
[2024-01-06] MEDS: Potassium Bicarbonate/Cit AC 25 MEQ TABLET.EFF 50 MEQ PO (22:10)
[2024-01-06] MEDS: 0.9 % Sodium Chloride 1,000 ML 999 ML IV (22:10)
[2024-01-06] MEDS: ondansetron HCL 4 MG/2 ML VIAL IVPUSH (22:10)
[2024-01-06 22:18] LABS: Magnesium < 0.6 mg/dL (1.6-2.6)
[2024-01-06] MEDS: Magnesium Sulfate/H2O 2 GM/50 ML PIGGYBACK IV (22:24)
[2024-01-06 22:56] LABS: Troponin-I High Sensitivity 6.3 ng/L (<3.5-17.0)
[2024-01-06] MEDS: Magnesium Hydrox/Alum Hydrox 30 ML ORAL.SUSP PO (23:41)
[2024-01-06] MEDS: Magnesium Oxide 400 MG TABLET 800 MG PO (23:41)
[2024-01-07] VITALS (9 sets, daily range): BP systolic 101–126; BP diastolic 57–69; PULSE 91–107; RESP 17–32; TEMP 36.3–37.4; O2SAT 97–99
[2024-01-07 03:00] LABS: Anion Gap 17 (12-20); Blood Urea Nitrogen 43 mg/dL (9-16); Calcium 7.5 mg/dL (8.4-10.2); Carbon Dioxide 14 mmol/L (22-29); Chloride 107 mmol/L (96-108); Creatinine Clr Calc Pharmacy 44.9; Estimated Glomerular Filt Rate 56; Glucose Random 128 mg/dL (60-115); Magnesium 1.1 mg/dL (1.6-2.6); Potassium 2.8 mmol/L (3.3-5.1); Sodium 135 mmol/L (135-145)
[2024-01-07] MEDS: Magnesium Sulfate/H2O 2 GM/50 ML PIGGYBACK IV (03:29)
[2024-01-07] MEDS: Potassium Chloride/H20 10 MEQ/100 ML PIGGYBACK 100 MEQ IV ×4 (04:01→16:14)
[2024-01-07] MEDS: Metoclopramide HCl 10 MG/2 ML VIAL 5 MG IVPUSH ×2 (05:28→14:09)
[2024-01-07] MEDS: HYDROmorphone HCl 2 MG/ML VIAL 1.5 MG IVPUSH (05:28)
[2024-01-07] MEDS: HYDROmorphone HCl 0.5 MG/0.5 ML SYRINGE 1 MG IVPUSH ×3 (05:29→20:16)
--- NOTE | 2024-01-07 06:10 | P.HPHOSP_ITS ---
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 Initially the pain was mild but it got during the day. She described the pain as constant, intensity 10/10 and radiating to the jaw and head. The pain increases with deep inspiration. She denied any cough, fever or chills. Upon arrival to the emergency department she started to experience nausea and vomiting. There is no significant increased output through her ileostomy. Denied significant abdominal pain. In the ED she was found to have stable vital signs. Blood workup is remarkable for leukocytosis of 16.6. Hemoglobin is 11.4 and platelets 338. There is significant hyponatremia and hypomagnesemia, 2.7 and less than 0.6, respectively. Sodium is 132. Creatinine was 1.46 but decreased to after IV fluids. Bicarb is 14. Troponin is negative x2. ECG showed normal sinus rhythm with a heart rate of 91 beats per minutes and nonspecific ST and T-wave abnormalities. CXR is negative. ED tx: NS 1 L bolus, KCl 40 mg IV, Dilaudid 2 mg IV, magnesium 800 mg p.o., magnesium sulfate 2 g IV, Zofran 4 mg IV, Klor-Con 50 mEq p.o. Review of Systems 2 Review of Systems: All 12 systems were reviewed and normal except as noted in HPI. [facility] Medical History (Updated 01/07/24 @ 07:27 by José Miguel Duran MD) Anxiety Irritable bowel syndrome with constipation PVC (premature ventricular contraction) Postop check Myocardial infarction Hypertension Barretts esophagus GERD (gastroesophageal reflux disease) Family History Father Colon cancer Paternal Aunt Colon cancer Surgical History (Updated 01/07/24 @ 03:53 by Tye San MD) Status post cardiac catheterization H/O dilation and curettage History of exploratory laparotomy (05/11/23) History of esophagogastroduodenoscopy (EGD) Hx of colonoscopy Social History Household Members: None Housing: House Do you presently have visiting nurse or other home services: Yes Alcohol intake: never Patient Tobacco Use Status: Never used Tobacco Tobacco use type: Cigarette Cigarette Packs Per Day: 0.5 Cigarettes Per Day: 10.0 Years Smoked: 30 e-Cigarette/Vaping Use: Never Used Use of substances other than those prescribed or required for medical reasons: No Substance Use Type: Marijuana Advance Directives: Yes Advance Directives on File: Yes Advance Directives Date on File: 12/29/23 service: No Meds Allergies Allergy/AdvReac Type Severity Reaction Status Date / Time clams Allergy Severe Stomach Verified 01/06/24 20:35 Upset clavulanic acid [Augmentin] Allergy Unknown GI, Verified 01/06/24 20:35 Difficulty breathing codeine [CODEINE] Allergy Unknown SENSITIVIT Verified 01/06/24 20:35 Y erythromycin base Allergy Unknown GI, DIFF Verified 01/06/24 20:35 [Erythromycin Base] BREATHING NSAIDS (Non-Steroidal Allergy Unknown GI UPSET Verified 01/06/24 20:35 Anti-Inflamma [NSAIDS (NON-STEROIDAL ANTI-INFLAMMA] Sulfa (Sulfonamide Allergy Unknown RASH Verified 01/06/24 20:35 Antibiotics) morphine [MORPHINE] AdvReac Severe NAUSEA Verified 01/06/24 20:35 aspirin [Aspirin] AdvReac Mild STOMACH Verified 01/06/24 20:35 UPSET Active Medications: Current Medications Hydromorphone HCl (Hydromorphone Hcl 0.5 Mg/0.5 Ml Syringe) 1 mg IVPUSH Q3H PRN; Protocol PRN Reason: Pain, Severe (Pain Scale 7-10) Last Admin: 01/07/24 05:29 Dose: 1 mg Potassium Chloride/Sodium Chloride (Kcl 40 Meq In 0.9 % Sodium Chl) 40 meq in 1,000 mls @ 65 mls/hr IVCONT .[id number] [facility] Metoclopramide HCl (Metoclopramide Hcl 10 Mg/2 Ml Vial) 5 mg IVPUSH Q8H ARISTIDES Last Admin: 01/07/24 05:28 Dose: 5 mg Prochlorperazine Edisylate (Prochlorperazine Edisylate 10 Mg/2 Ml Vial) 5 mg IVPUSH Q6H PRN PRN Reason: Nausea and Vomiting Sodium Chloride (0.9 % Sodium Chloride Flush 3 Ml Syringe) 3 ml IVFLUSH QSHIFT [facility] Home Medications ?Medication ?Instructions ?Recorded ?Confirmed ?Last Taken ?Type atorvastatin 20 mg tablet 20 mg PO BEDTIME 03/01/23 12/29/23 12/28/23 History esomeprazole magnesium 40 mg 20 mg PO BID 03/01/23 12/29/23 12/28/23 History capsule,delayed release (Nexium) hydrochlorothiazide 25 mg tablet 25 mg PO DAILY 03/01/23 12/29/23 12/28/23 History multivitamin 1 tab PO DAILY 05/04/23 12/29/23 12/28/23 History carvedilol 6.25 mg tablet 6.25 mg PO BID 10/13/23 12/29/23 12/28/23 History losartan 25 mg tablet 25 mg PO DAILY 10/13/23 12/29/23 12/28/23 History potassium chloride 10 mEq 10 meq PO BID 10/13/23 12/29/23 12/28/23 History capsule,extended release calcium carbonate 600 mg-vitamin 1 tab PO DAILY 11/30/23 12/29/23 12/28/23 History D3 5 mcg (200 unit) tablet (Calcium 600 + D(3)) lorazepam 1 mg tablet 1 mg PO BEDTIME PRN anxiety 11/30/23 12/29/23 12/28/23 History mirtazapine 15 mg tablet 15 mg PO BEDTIME 11/30/23 12/29/23 12/28/23 History hydrocodone 5 mg-acetaminophen 325 1 tab PO Q4H PRN moderate pain 05/05/24 Unknown History mg tablet ondansetron HCl 4 mg tablet 4 mg PO Q8H PRN Nausea And Vomiting 01/07/24 Unknown History Physical Exam 2 Vital Signs and Narrative: Vital Signs: Last Vital Signs Temp 98.5 F 01/07/24 05:37 Pulse 93 01/07/24 05:37 Resp 17 01/07/24 05:37 BP 102/62 01/07/24 05:37 Pulse Ox 97 01/07/24 05:37 O2 Del Method Room Air 01/07/24 05:37 BMI result Body Mass Index 24.2 Constitutional - Awake and Alert, No apparent distress. Chronically ill. Afebrile. HEENT - Pupils equally round. Normal sclerae. Dry oral mucosa. Heart - RRR, No murmurs. Lungs - Normal lung expansion, Normal respiratory effort, No respiratory distress, CTA bilaterally Abdomen - Nondistended. Non tenderness. Surgical wound + minimal discharge. Extremities - No edema Musculoskeletal - Normal inspection, normal ROM Skin - Warm/Dry Neurological - Alert & oriented x3. No gross focal weakness. Normal speech. Psychological - Appropriate affect Results Labs 01/06/24 21:01 01/07/24 02:39 Labs: Laboratory Results - last 24 hr 01/06/24 01/06/24 01/07/24 21:01 22:30 02:39 MCV 85.8 MCH 29.5 MCHC 34.4 RDW 13.5 Plt Count 338 MPV 9.0 L Immature Gran % (Auto) 0.8 H Neut % (Auto) 66.3 Lymph % (Auto) 21.1 [place] % (Auto) 9.2 Eos % (Auto) 2.2 Baso % (Auto) 0.4 Lymph # (Auto) 3.5 [place] # (Auto) 1.5 H Eos # (Auto) 0.4 Baso # (Auto) 0.1 Abs Immat Gran (auto) 0.14 H Absolute Neuts (auto) 11.0 H Absolute Nucleated RBC 0.000 Nucleated RBC % (auto) 0.0 Smear Tech's Comments VERIFIED Anion Gap 18 17 Estim Creat Clear Calc 30.8 44.9 Estimated GFR 36 56 Random Glucose 107 128 H Calcium 7.9 L 7.5 L Magnesium < 0.6 L* 1.1 L* Troponin I High Sens 5.9 D 6.3 Imaging Radiologist's Impressions: Impressions Chest X-Ray 01/07/24 04:28 IMPRESSION: No acute cardiopulmonary findings. Assessment and Plan (1) Hypomagnesemia: Status: Acute (2) Chest pain: Qualifiers: Chest pain type: unspecified Qualified Code(s): R07.9 - Chest pain, unspecified Status: Acute (3) Hypokalemia: Status: Acute Plan Kia Phelps is a 63 years old woman admitted with: * Chest pain, pleuritic. Troponin x2 negative. Normal O2 sats. ECG showed no concern ischemic changes. s/p cardiac cath (Jun 01, 2023 - No CAD + normal LV normal). Cardiology consult for further recommendations. * Nausea and vomiting in the setting of recent ileostomy. Antiemetic therapy as needed. Gentle IV fluids. Surgery consult for further recommendations. * Multiple electrolyte imbalances secondary to above. Telemetry. Replete admitted. Continue to monitor electrolytes closely. * Essential hypertension. Continue home medications when able. Continue to monitor BP. * Hyperlipidemia. Continue statin when able. * GERD + Menon's. Continue PPI. Patient will need hospitalization for at least 2 midnights for multiple electrolyte imbalances treatment with IV repletion and close monitoring of lytes level. Patient also will need evaluation by surgical cardiology services Quality Stroke Does the patient have a stroke diagnosis?: No VTE Prior VTE?: No VTE Risk Level:: Medical - moderate - high VTE Device Contraindication: Treatment Not Indicated VTE Drug Contraindication: N/A - Med Ordered
[2024-01-07] MEDS: KCl 40 mEq in 0.9 % Sodium Chl 40 MEQ/1,000 ML IV.SOLN 65 MEQ IVCONT ×2 (06:41→17:43)
[2024-01-07 08:19] LABS: Hematocrit 38.2 % (37.0-47.0); Hemoglobin 13.1 g/dl (12.0-16.0); Mean Corpuscular HGB Conc 34.3 g/dl (31.0-35.0); Mean Corpuscular Hemoglobin 29.4 pg (27.0-33.0); Mean Corpuscular Volume 85.7 fL (80.0-98.0); Mean Platelet Volume 9.3 fL (9.4-12.3); Platelet Count 209 X10*3/uL (160-400); Red Blood Count 4.46 X10*6/uL (4.20-5.50); Red Cell Distribution Width 13.5 % (11.0-16.0); White Blood Count 15.6 X10*3/uL (4.8-10.8)
[2024-01-07 08:34] LABS: Alanine Aminotransferase 25 U/L (0-31); Albumin Level 3.1 g/dL (3.5-5.0); Alkaline Phosphatase 111 U/L (39-117); Anion Gap 16 (12-20); Aspartate Amino Transferase 25 U/L (5-31); Bilirubin Total 0.3 mg/dL (0.0-1.0); Blood Urea Nitrogen 32 mg/dL (9-16); Calcium 7.3 mg/dL (8.4-10.2); Carbon Dioxide 13 mmol/L (22-29); Chloride 109 mmol/L (96-108); Creatinine Clr Calc Pharmacy 53.5; Estimated Glomerular Filt Rate > 60; Glucose Random 125 mg/dL (60-115); Magnesium 1.8 mg/dL (1.6-2.6); Potassium 3.1 mmol/L (3.3-5.1); Sodium 135 mmol/L (135-145); Total Protein 7.4 g/dL (6.5-8.0)
--- NOTE | 2024-01-07 09:07 | PHA.MEDREC ---
Pharmacy Consult ? Medication Reconciliation Pharmacy has completed the medication reconciliation.
[2024-01-07] MEDS: Pantoprazole Sodium 40 MG/10 ML VIAL IVPUSH (09:18)
[2024-01-07] MEDS: 0.9 % Sodium Chloride Flush 3 ML SYRINGE IVFLUSH (09:18)
--- NOTE | 2024-01-07 09:50 | PM.CNGS ---
History of Present Illness Consult details Consult date: 01/07/24 Narrative: 63F admitted last night for chest pain. She was referred for her recent abdominal surgery. She is well knwon to the service. She has a hx of diverticulitis with a colovesical fistula requiring a Tye's procedure last year. She had reversal of her colostomy last month but had to return to the OR for revision of her anastomosis, with a diverting loop ileostomy because of iatrogenic colovaginal fistula at the anastomosis. She had chests pains yesterday and she dos have a hx of NSTEMI last year. She was also noted to have hypokalemia and hypomagnesemia. She says she has had these problems as well last year. She denies problems with her stoma function. She says she has good oral intake and denies abdominal pain. Review of Systems Constitutional: Constitutional: Denies chills and Denies fever(s) Cardiovascular: Cardiovascular: Reports chest pain, Denies dyspnea and Denies dyspnea on exertion Respiratory: Respiratory: Denies cough, Denies dyspnea and Denies dyspnea on exertion Gastrointestinal: Gastrointestinal: Denies hematochezia and Denies change in bowel habits Genitourinary: Genitourinary: Denies hematuria Musculoskeletal: Musculoskeletal: Denies back pain and Denies limited range of motion Neurologic: Denies focal weakness and Denies convulsions Psychiatric: Psychiatric: Denies depression and Denies mood swings PMFSH Past Medical History Medical History (Updated 01/10/24 @ 14:47 by Jack Quan MD) Postop check Small bowel obstruction Anxiety Irritable bowel syndrome with constipation PVC (premature ventricular contraction) Myocardial infarction Hypertension Barretts esophagus GERD (gastroesophageal reflux disease) Family History Family History Father Colon cancer Paternal Aunt Colon cancer Surgical History Surgical History (Updated 01/08/24 @ 00:02 by Mihai Calvillo) Status post cardiac catheterization H/O dilation and curettage History of exploratory laparotomy (05/11/23) History of esophagogastroduodenoscopy (EGD) Hx of colonoscopy Social History Social History Household Members: None Housing: House Do you presently have visiting nurse or other home services: Yes Alcohol intake: never Patient Tobacco Use Status: Never used Tobacco Tobacco use type: Cigarette Cigarette Packs Per Day: 0.5 Cigarettes Per Day: 10.0 Years Smoked: 30 e-Cigarette/Vaping Use: Never Used Substance Use Type: Marijuana Advance Directives Date on File: 12/29/23 service: No Meds Allergies Allergy/AdvReac Type Severity Reaction Status Date / Time clams Allergy Severe Stomach Verified 01/10/24 13:06 Upset clavulanic acid [Augmentin] Allergy Unknown GI, Verified 01/10/24 13:06 Difficulty breathing codeine [CODEINE] Allergy Unknown SENSITIVIT Verified 01/10/24 13:06 Y erythromycin base Allergy Unknown GI, DIFF Verified 01/10/24 13:06 [Erythromycin Base] BREATHING NSAIDS (Non-Steroidal Allergy Unknown GI UPSET Verified 01/10/24 13:06 Anti-Inflamma [NSAIDS (NON-STEROIDAL ANTI-INFLAMMA] Sulfa (Sulfonamide Allergy Unknown RASH Verified 01/10/24 13:06 Antibiotics) morphine [MORPHINE] AdvReac Severe NAUSEA Verified 01/10/24 13:06 aspirin [Aspirin] AdvReac Mild STOMACH Verified 01/10/24 13:06 UPSET Active Medications: Current Medications Atorvastatin Calcium (Atorvastatin Calcium 20 Mg Tablet) 20 mg PO BEDTIME ARISTIDES Carvedilol (Carvedilol 6.25 Mg Tablet) 6.25 mg PO BIDWM ARISTIDES; Protocol Hydromorphone HCl (Hydromorphone Hcl 0.5 Mg/0.5 Ml Syringe) 1 mg IVPUSH Q3H PRN; Protocol PRN Reason: Pain, Severe (Pain Scale 7-10) Last Admin: 01/07/24 05:29 Dose: 1 mg Potassium Chloride/Sodium Chloride (Kcl 40 Meq In 0.9 % Sodium Chl) 40 meq in 1,000 mls @ 65 mls/hr IVCONT .[id number] ARISTIDES Last Admin: 01/07/24 06:41 Dose: 65 mls/hr Lorazepam (Lorazepam 1 Mg Tablet) 1 mg PO BEDTIME PRN PRN Reason: anxiety Metoclopramide HCl (Metoclopramide Hcl 10 Mg/2 Ml Vial) 5 mg IVPUSH Q8H ARISTIDES Last Admin: 01/07/24 05:28 Dose: 5 mg Mirtazapine (Mirtazapine 15 Mg Tablet) 15 mg PO BEDTIME [facility]STIDES Multivitamins/Vitamin C (Multivitamin Tablet) 1 tab PO DAILY [facility] Non-Formulary Medication (Calcium Carbonate-Vitamin D3 [Calcium 600 + D(3)]) 1 tab PO DAILY [facility] Non-Formulary Medication (Potassium Chloride) 10 meq PO BID [facility] Non-Formulary Medication (Esomeprazole Magnesium) 20 mg PO BID [facility] Prochlorperazine Edisylate (Prochlorperazine Edisylate 10 Mg/2 Ml Vial) 5 mg IVPUSH Q6H PRN PRN Reason: Nausea and Vomiting Sodium Chloride (0.9 % Sodium Chloride Flush 3 Ml Syringe) 3 ml IVFLUSH QSHIFT [facility] Last Admin: 01/07/24 09:18 Dose: 3 ml Home Medications ?Medication ?Instructions ?Recorded ?Confirmed ?Last Taken ?Type atorvastatin 20 mg tablet 20 mg PO BEDTIME 03/01/23 01/10/24 12/28/23 History hydrochlorothiazide 25 mg tablet 25 mg PO DAILY 03/01/23 01/10/24 01/06/24 History carvedilol 6.25 mg tablet 6.25 mg PO BIDWM 10/13/23 01/10/24 01/06/24 History losartan 25 mg tablet 25 mg PO DAILY 10/13/23 01/10/24 01/06/24 History potassium chloride 10 mEq 10 meq PO BID 10/13/23 01/10/24 01/06/24 History capsule,extended release calcium carbonate 600 mg-vitamin 1 tab PO DAILY 11/30/23 01/10/24 01/06/24 History D3 5 mcg (200 unit) tablet (Calcium 600 + D(3)) lorazepam 1 mg tablet 1 mg PO BEDTIME PRN anxiety 11/30/23 01/10/24 12/28/23 History mirtazapine 15 mg tablet 15 mg PO BEDTIME 11/30/23 01/10/24 12/28/23 History acetaminophen 325 mg tablet 650 mg PO Q6H PRN Pain 01/07/24 01/10/24 Unknown History (Tylenol) multivitamin with minerals-folic 1 tab PO DAILY 01/07/24 01/10/24 01/06/24 History acid 200 mcg chewable tablet (Multivitamin Gummies) ondansetron HCl 4 mg tablet 4 mg PO Q8H PRN Nausea And Vomiting 01/07/24 01/10/24 Unknown History Physical Exam Vital Signs: Vital Signs: Last Vital Signs Temp 99.0 F 01/07/24 09:16 Pulse 93 01/07/24 09:16 Resp 20 01/07/24 09:16 BP 116/63 01/07/24 09:16 Pulse Ox 98 01/07/24 09:16 O2 Del Method Room Air 01/07/24 09:16 BMI result Body Mass Index 24.2 Const: General: comfortable and no acute distress Orientation/consciousness: patient oriented x3 Neck: Neck: Yes no lymphadenopathy Resp: Auscultation: clear to auscultation bilaterally Cardio: Rhythm: regular rhythm GI: Other: ileostomy on the right with output Palpation (GI): Soft to palpation, nontender and no guarding Neuro: General: patient oriented x3 Results Labs 01/08/24 00:37 01/08/24 00:37 Labs: Abnormal lab results 01/06/24 01/07/24 01/07/24 Range/Units 21:01 02:39 07:59 WBC 16.6 H 15.6 H (4.8-10.8) X10*3/uL RBC 3.86 L (4.20-5.50) X10*6/uL Hgb 11.4 L (12.0-16.0) g/dl Hct 33.1 L (37.0-47.0) % MPV 9.0 L 9.3 L (9.4-12.3) fL Immature Gran % (Auto) 0.8 H (0.0-0.4) % [place] # (Auto) 1.5 H (0.1-1.2) X10*3/uL Abs Immat Gran (auto) 0.14 H (0.00-0.03) X10*3/uL Absolute Neuts (auto) 11.0 H (2.0-8.3) x10*3/uL Sodium 132 L (135-145) mmol/L Potassium 2.7 L* 2.8 L* (3.3-5.1) mmol/L Chloride (96-108) mmol/L Carbon Dioxide 14 L 14 L (22-29) mmol/L BUN 55 H 43 H (9-16) mg/dL Creatinine 1.46 H (0.5-1.4) mg/dL Random Glucose 128 H (60-115) mg/dL Calcium 7.9 L 7.5 L (8.4-10.2) mg/dL Magnesium < 0.6 L* 1.1 L* (1.6-2.6) mg/dL Albumin (3.5-5.0) g/dL 01/07/24 Range/Units 08:00 WBC (4.8-10.8) X10*3/uL RBC (4.20-5.50) X10*6/uL Hgb (12.0-16.0) g/dl Hct (37.0-47.0) % MPV (9.4-12.3) fL Immature Gran % (Auto) (0.0-0.4) % [place] # (Auto) (0.1-1.2) X10*3/uL Abs Immat Gran (auto) (0.00-0.03) X10*3/uL Absolute Neuts (auto) (2.0-8.3) x10*3/uL Sodium (135-145) mmol/L Potassium 3.1 L (3.3-5.1) mmol/L Chloride 109 H (96-108) mmol/L Carbon Dioxide 13 L (22-29) mmol/L BUN 32 H (9-16) mg/dL Creatinine (0.5-1.4) mg/dL Random Glucose 125 H (60-115) mg/dL Calcium 7.3 L (8.4-10.2) mg/dL Magnesium (1.6-2.6) mg/dL Albumin 3.1 L (3.5-5.0) g/dL Short CBC 01/06/24 01/07/24 Range/Units 21:01 07:59 WBC 16.6 H 15.6 H (4.8-10.8) X10*3/uL Hgb 11.4 L 13.1 (12.0-16.0) g/dl Hct 33.1 L 38.2 (37.0-47.0) % Plt Count 338 209 D (160-400) X10*3/uL BMP 01/06/24 01/07/24 01/07/24 21:01 02:39 08:00 Sodium 132 L 135 135 Potassium 2.7 L* 2.8 L* 3.1 L Chloride 103 107 109 H Carbon Dioxide 14 L 14 L 13 L BUN 55 H 43 H 32 H Creatinine 1.46 H 1.00 0.84 Calcium 7.9 L 7.5 L 7.3 L Liver Function 01/07/24 Range/Units 08:00 Total Bilirubin 0.3 (0.0-1.0) mg/dL AST 25 (5-31) U/L ALT 25 (0-31) U/L Alkaline Phosphatase 111 (39-117) U/L Albumin 3.1 L (3.5-5.0) g/dL All other labs normal. Imaging Additional studies: Laboratory Results WBC 15.6 X10*3/uL (4.8-10.8) H 01/07/24 07:59 RBC 4.46 X10*6/uL (4.20-5.50) 01/07/24 07:59 Hgb 13.1 g/dl (12.0-16.0) 01/07/24 07:59 Hct 38.2 % (37.0-47.0) 01/07/24 07:59 MCV 85.7 fL (80.0-98.0) 01/07/24 07:59 MCH 29.4 pg (27.0-33.0) 01/07/24 07:59 MCHC 34.3 g/dl (31.0-35.0) 01/07/24 07:59 RDW 13.5 % (11.0-16.0) 01/07/24 07:59 Plt Count 209 X10*3/uL (160-400) D 01/07/24 07:59 MPV 9.3 fL (9.4-12.3) L 01/07/24 07:59 Immature Gran % (Auto) 0.8 % (0.0-0.4) H 01/06/24 21:01 Neut % (Auto) 66.3 % (45-73) 01/06/24 21:01 Lymph % (Auto) 21.1 % (20-40) 01/06/24 21:01 [place] % (Auto) 9.2 % (2-11) 01/06/24 21:01 Eos % (Auto) 2.2 % (0-4) 01/06/24 21:01 Baso % (Auto) 0.4 % (0-2) 01/06/24 21:01 Lymph # (Auto) 3.5 X10*3/uL (1.2-4.9) 01/06/24 21:01 [place] # (Auto) 1.5 X10*3/uL (0.1-1.2) H 01/06/24 21:01 Eos # (Auto) 0.4 X10*3/uL (0.0-0.4) 01/06/24 21:01 Baso # (Auto) 0.1 X10*3/uL (0.0-0.2) 01/06/24 21:01 Abs Immat Gran (auto) 0.14 X10*3/uL (0.00-0.03) H 01/06/24 21:01 Absolute Neuts (auto) 11.0 x10*3/uL (2.0-8.3) H 01/06/24 21:01 Absolute Nucleated RBC 0.000 X10*3/uL (0.0-0.012) 01/07/24 07:59 Nucleated RBC % (auto) 0.0 /100WBC (0.0-0.2) 01/07/24 07:59 Smear Tech's Comments VERIFIED 01/06/24 21:01 Sodium 135 mmol/L (135-145) 01/07/24 08:00 Potassium 3.1 mmol/L (3.3-5.1) L 01/07/24 08:00 Chloride 109 mmol/L (96-108) H 01/07/24 08:00 Carbon Dioxide 13 mmol/L (22-29) L 01/07/24 08:00 Anion Gap 16 (12-20) 01/07/24 08:00 BUN 32 mg/dL (9-16) H 01/07/24 08:00 Creatinine 0.84 mg/dL (0.5-1.4) 01/07/24 08:00 Estim Creat Clear Calc 53.5 01/07/24 08:00 Estimated GFR > 60 01/07/24 08:00 Random Glucose 125 mg/dL (60-115) H 01/07/24 08:00 Calcium 7.3 mg/dL (8.4-10.2) L 01/07/24 08:00 Magnesium 1.8 mg/dL (1.6-2.6) 01/07/24 08:00 Total Bilirubin 0.3 mg/dL (0.0-1.0) 01/07/24 08:00 AST 25 U/L (5-31) 01/07/24 08:00 ALT 25 U/L (0-31) 01/07/24 08:00 Alkaline Phosphatase 111 U/L (39-117) 01/07/24 08:00 Troponin I High Sens 6.3 ng/L (<3.5-17.0) 01/06/24 22:30 Total Protein 7.4 g/dL (6.5-8.0) 01/07/24 08:00 Albumin 3.1 g/dL (3.5-5.0) L 01/07/24 08:00 Impressions Chest X-Ray 01/07/24 04:28 IMPRESSION: No acute cardiopulmonary findings. Assessment and Plan (1) Ileostomy in place: Status: Acute She was admitted for chest pain with hypokalemia and hypomagnesemia. Her stoma is functioning well. She denies abdominal complaints. She does not seem to have high output ileostomy. Her electrolytes are being replaced. She does not have surgical issues at this time. Procedures Date of Service Date of Service: 01/12/24
--- NOTE | 2024-01-07 10:07 | PM.CNCAR ---
History of Present Illness History of Present Illness Date of Service: 01/07/24 Chief complaint: Electrolytes Imbalances Narrative: This is a cardiology consultation regarding chest pain. Patient states that she noticed chest pain in the upper part of substernal area and then it went up her neck. She also stated that the pain was worse with breathing. No radiation to the extremities. Last year, she had a diagnosis of stress-induced cardiomyopathy and cardiac catheterization did not show any significant obstructive disease. Today, she states that pain is much better after she got her electrolytes replaced. She strongly feels that is the reason why she had the discomfort. Review of Systems Review of Systems: Yes all other systems are reviewed and are negative Constitutional: Constitutional: Reports as per HPI and Reports no additional constitutional complaints Eyes: Eyes: Reports as per HPI and Denies no additional eye complaints ENT: Denies system reviewed and no additional complaints, except as documented and Reports as per HPI Cardiovascular: Cardiovascular: Reports as per HPI, Reports no additional cardiovascular complaints, Denies acrocyanosis, Denies cool extremities, Denies chest pain, Denies leg edema, Denies lightheadedness, Denies palpitations and Denies dyspnea Respiratory: Respiratory: Reports as per HPI, Denies no additional respiratory complaints and Denies dyspnea Gastrointestinal: Gastrointestinal: Reports as per HPI and Denies no additional gastrointestinal complaints Genitourinary: Genitourinary: Reports as per HPI Musculoskeletal: Musculoskeletal: Reports no additional musculoskeletal complaints and Reports as per HPI Integumentary/Breasts: Skin/Breast: Reports system reviewed and no additional complaints, except as docu Neurologic: Reports system reviewed and no additional complaints, except as documented and Reports as per HPI Psychiatric: Psychiatric: Reports no additional psychiatric complaints and Reports as per HPI Endocrine: Endocrine: Reports no additional endocrine complaints, Reports as per HPI and Denies palpitations Hematologic/Lymphatic: Hematologic/Lymphatic: Reports no additional hematologic/lymphatic complaints and Reports as per HPI Allergic/Immunologic: Allergic/Immunologic: Reports no additional allergic/immunologic complaints and Reports as per HPI [facility] Past Medical History Medical History (Updated 01/07/24 @ 07:27 by José Miguel Duran MD) Anxiety Irritable bowel syndrome with constipation PVC (premature ventricular contraction) Postop check Myocardial infarction Hypertension Barretts esophagus GERD (gastroesophageal reflux disease) Family History Family History Father Colon cancer Paternal Aunt Colon cancer Surgical History Surgical History (Updated 01/07/24 @ 03:53 by Tye San MD) Status post cardiac catheterization H/O dilation and curettage History of exploratory laparotomy (05/11/23) History of esophagogastroduodenoscopy (EGD) Hx of colonoscopy Social History Social History Household Members: None Housing: House Do you presently have visiting nurse or other home services: Yes Alcohol intake: never Patient Tobacco Use Status: Never used Tobacco Tobacco use type: Cigarette Cigarette Packs Per Day: 0.5 Cigarettes Per Day: 10.0 Years Smoked: 30 e-Cigarette/Vaping Use: Never Used Substance Use Type: Marijuana Advance Directives Date on File: 12/29/23 service: No Meds Allergies Allergy/AdvReac Type Severity Reaction Status Date / Time clams Allergy Severe Stomach Verified 01/06/24 20:35 Upset clavulanic acid [Augmentin] Allergy Unknown GI, Verified 01/06/24 20:35 Difficulty breathing codeine [CODEINE] Allergy Unknown SENSITIVIT Verified 01/06/24 20:35 Y erythromycin base Allergy Unknown GI, DIFF Verified 01/06/24 20:35 [Erythromycin Base] BREATHING NSAIDS (Non-Steroidal Allergy Unknown GI UPSET Verified 01/06/24 20:35 Anti-Inflamma [NSAIDS (NON-STEROIDAL ANTI-INFLAMMA] Sulfa (Sulfonamide Allergy Unknown RASH Verified 01/06/24 20:35 Antibiotics) morphine [MORPHINE] AdvReac Severe NAUSEA Verified 01/06/24 20:35 aspirin [Aspirin] AdvReac Mild STOMACH Verified 01/06/24 20:35 UPSET Active Medications: Current Medications Atorvastatin Calcium (Atorvastatin Calcium 20 Mg Tablet) 20 mg PO BEDTIME [facility] Calcium Carbonate/Cholecalciferol (Calcium + Vitamin D 250 Mg Tablet) 500 mg PO DAILY [facility] Carvedilol (Carvedilol 6.25 Mg Tablet) 6.25 mg PO BIDWM ARISTIDES; Protocol Hydromorphone HCl (Hydromorphone Hcl 0.5 Mg/0.5 Ml Syringe) 1 mg IVPUSH Q3H PRN; Protocol PRN Reason: Pain, Severe (Pain Scale 7-10) Last Admin: 01/07/24 05:29 Dose: 1 mg Potassium Chloride/Sodium Chloride (Kcl 40 Meq In 0.9 % Sodium Chl) 40 meq in 1,000 mls @ 65 mls/hr IVCONT .[id number] [facility] Last Admin: 01/07/24 06:41 Dose: 65 mls/hr Lorazepam (Lorazepam 1 Mg Tablet) 1 mg PO BEDTIME PRN PRN Reason: anxiety Metoclopramide HCl (Metoclopramide Hcl 10 Mg/2 Ml Vial) 5 mg IVPUSH Q8H [facility] Last Admin: 01/07/24 05:28 Dose: 5 mg Mirtazapine (Mirtazapine 15 Mg Tablet) 15 mg PO BEDTIME [facility] Multivitamins/Vitamin C (Multivitamin Tablet) 1 tab PO DAILY [facility] Omeprazole (Omeprazole 20 Mg Capsule.Dr) 20 mg PO BID@0630,1630 [facility] Potassium Chloride (Potassium Chloride Er 10 Meq Tablet.Er) 10 meq PO BID [facility] Prochlorperazine Edisylate (Prochlorperazine Edisylate 10 Mg/2 Ml Vial) 5 mg IVPUSH Q6H PRN PRN Reason: Nausea and Vomiting Sodium Chloride (0.9 % Sodium Chloride Flush 3 Ml Syringe) 3 ml IVFLUSH QSHIFT [facility] Last Admin: 01/07/24 09:18 Dose: 3 ml Home Medications ?Medication ?Instructions ?Recorded ?Confirmed ?Last Taken ?Type atorvastatin 20 mg tablet 20 mg PO BEDTIME 03/01/23 01/07/24 12/28/23 History hydrochlorothiazide 25 mg tablet 25 mg PO DAILY 03/01/23 01/07/24 01/06/24 History carvedilol 6.25 mg tablet 6.25 mg PO BIDWM 10/13/23 01/07/24 01/06/24 History losartan 25 mg tablet 25 mg PO DAILY 10/13/23 01/07/24 01/06/24 History potassium chloride 10 mEq 10 meq PO BID 10/13/23 01/07/24 01/06/24 History capsule,extended release calcium carbonate 600 mg-vitamin 1 tab PO DAILY 11/30/23 01/07/24 01/06/24 History D3 5 mcg (200 unit) tablet (Calcium 600 + D(3)) lorazepam 1 mg tablet 1 mg PO BEDTIME PRN anxiety 11/30/23 01/07/24 12/28/23 History mirtazapine 15 mg tablet 15 mg PO BEDTIME 11/30/23 01/07/24 12/28/23 History acetaminophen 325 mg tablet 650 mg PO Q6H PRN Pain 01/07/24 01/07/24 Unknown History (Tylenol) esomeprazole magnesium 20 mg 20 mg PO BID 01/07/24 01/07/24 01/06/24 History capsule,delayed release multivitamin with minerals-folic 1 tab PO DAILY 01/07/24 01/07/24 01/06/24 History acid 200 mcg chewable tablet (Multivitamin Gummies) ondansetron HCl 4 mg tablet 4 mg PO Q8H PRN Nausea And Vomiting 01/07/24 01/07/24 Unknown History Physical Exam Vital Signs: Vital Signs: Last Vital Signs Temp 99.0 F 01/07/24 09:16 Pulse 93 01/07/24 09:16 Resp 20 01/07/24 09:16 BP 116/63 01/07/24 09:16 Pulse Ox 98 01/07/24 09:16 O2 Del Method Room Air 01/07/24 09:16 BMI result Body Mass Index 24.2 Const: General: comfortable and no acute distress Orientation/consciousness: patient oriented x3 HEENT: Other: Unremarkable Head: Yes normal to inspection Neck: Neck: Yes normal visual inspection Chest: Chest palpation & inspection: normal inspection of the chest Resp: Auscultation: clear to auscultation bilaterally Cardio: Palpation: normal PMI Heart sounds: S1 normal heart sound present, S2 normal heart sound present, no gallops, no murmurs and no rubs GI: Palpation (GI): Soft to palpation Back/Spine/Pelvis: Other: unremarkable Skin: General skin exam: no rashes or lesions noted Neuro: General: patient oriented x3 Extrem: General: Yes normal to inspection Psych: Mental Status: mental status grossly normal Objective Labs and Meds 01/07/24 07:59 01/07/24 08:00 Lab results: Laboratory Results - last 24 hr 01/06/24 01/06/24 01/07/24 21:01 22:30 02:39 WBC 16.6 H RBC 3.86 L Hgb 11.4 L Hct 33.1 L MCV 85.8 MCH 29.5 MCHC 34.4 RDW 13.5 Plt Count 338 MPV 9.0 L Immature Gran % (Auto) 0.8 H Neut % (Auto) 66.3 Lymph % (Auto) 21.1 Pike % (Auto) 9.2 Eos % (Auto) 2.2 Baso % (Auto) 0.4 Lymph # (Auto) 3.5 Pike # (Auto) 1.5 H Eos # (Auto) 0.4 Baso # (Auto) 0.1 Abs Immat Gran (auto) 0.14 H Absolute Neuts (auto) 11.0 H Absolute Nucleated RBC 0.000 Nucleated RBC % (auto) 0.0 Smear Tech's Comments VERIFIED Sodium 132 L 135 Potassium 2.7 L* 2.8 L* Chloride 103 107 Carbon Dioxide 14 L 14 L Anion Gap 18 17 BUN 55 H 43 H Creatinine 1.46 H 1.00 Estim Creat Clear Calc 30.8 44.9 Estimated GFR 36 56 Random Glucose 107 128 H Calcium 7.9 L 7.5 L Magnesium < 0.6 L* 1.1 L* Total Bilirubin AST ALT Alkaline Phosphatase Troponin I High Sens 5.9 D 6.3 Total Protein Albumin 01/07/24 01/07/24 07:59 08:00 WBC 15.6 H RBC 4.46 Hgb 13.1 Hct 38.2 MCV 85.7 MCH 29.4 MCHC 34.3 RDW 13.5 Plt Count 209 D MPV 9.3 L Immature Gran % (Auto) Neut % (Auto) Lymph % (Auto) Pike % (Auto) Eos % (Auto) Baso % (Auto) Lymph # (Auto) Pike # (Auto) Eos # (Auto) Baso # (Auto) Abs Immat Gran (auto) Absolute Neuts (auto) Absolute Nucleated RBC 0.000 Nucleated RBC % (auto) 0.0 Smear Tech's Comments Sodium 135 Potassium 3.1 L Chloride 109 H Carbon Dioxide 13 L Anion Gap 16 BUN 32 H Creatinine 0.84 Estim Creat Clear Calc 53.5 Estimated GFR > 60 Random Glucose 125 H Calcium 7.3 L Magnesium 1.8 Total Bilirubin 0.3 AST 25 ALT 25 Alkaline Phosphatase 111 Troponin I High Sens Total Protein 7.4 Albumin 3.1 L ECG Interpretation: EKG shows sinus rhythm at 91/Min; nonspecific ST-T changes. Imaging Radiologist's impression: Impressions Chest X-Ray 01/07/24 04:28 IMPRESSION: No acute cardiopulmonary findings. Assessment and Plan (1) Chest pain: Qualifiers: Chest pain type: unspecified Qualified Code(s): R07.9 - Chest pain, unspecified Status: Acute (2) Hypokalemia: Status: Acute (3) Hypomagnesemia: Status: Acute Plan Cardiac documentation from her light adjuster reviewed. LVEF last year was initially as much as 10-20% in setting of medical illness. Then she underwent cardiac catheterization which showed no significant obstructive disease. Suspected to be takotsubo cardiomyopathy. Then last echocardiogram from July of 2023 with normal LVEF at 55-60%. Currently, troponin levels are well within normal limits. It appears that she was hypokalemic up to 2.7 and also hypomagnesemic at < 0.6. That might be causing some muscle spasm extra. She strongly feels that electrolyte issues caused the discomfort and that after they gave her electrolytes she actually felt better and the pain is almost gone. Do not recommend any further cardiac workup at this time. Appropriately corrected her lytes and she will likely need them at time of discharge. Procedures Date of Service Date of Service: 01/07/24
--- NOTE | 2024-01-07 10:30 | P.EN_ITS ---
Event Note Date of Service: 01/07/24 Event Note: This is a 63 year old female with complicated past surgical history who presented with chest pain, nausea/vomiting found to have multiple electrolyte abnormality Seen and examined this morning Follow-up for chest pain, nausea/vomiting, electrolyte abnormalities Patient observed sitting up in bed, in no acute distress Patient reports that her headache has resolved, nausea resolved, chest pain significantly improved Chest pain, pleuritic. Troponin x2 negative. Normal O2 sats. ECG showed no concern ischemic changes. s/p cardiac cath (Jun 01, 2023 - No CAD + normal LV normal). Seen by cardiology, probable muscle spasm due to severe electrolyte abnormal ities. No further inpatient cardiac workup recommended at this time Nausea and vomiting in the setting of recent ileostomy. Antiemetic therapy as needed. Gentle IV fluids. Symptoms improved, seen by surgery, no acute surgical intervention required at this time Hypomagnesemia/hypokalemia Improving with replacement Repeat BMP this afternoon Replace as needed Essential hypertension. Continue carvedilol Hold HCTZ, losartan due to soft blood pressure Monitor blood pressure closely MARKIE resolved with IV fluid Leukocytosis Question reactive Afebrile; UA, chest x-ray negative, no evidence of acute infection No indication for antibiotics at this time Hyperlipidemia Continue statin when able. GERD + Menon's. Continue PPI. Time Spent With Patient Time: Total time managing care of this patient today ____ minutes.
--- NOTE | 2024-01-07 12:26 | MHC.CM.PN ---
EMR REVIEWED, PT ADMITTED W/CHEST PAIN AND ELECTROLYTE IMBALANCE, PT REPORTS SHE HAD CHEST PAIN AND THAT'S WHY SHE RETURNED TO HOSPITAL AFTER RECENT DC, PT REPORT SHE STILL LIVES ALONE, HAS A CANE FOR LONG DISTANCES, ACTIVE W/[facility] AND REFERRAL PLACED. PT REPORTS SHE IS HOPING TO DC BACK HOME TOMORROW W/[facility] RESUMING SN D/T SURGERY IN DECEMBER. PT VERIFIES PCP/HCP ON FILE ARE CORRECT.
[2024-01-07 13:34] LABS: Anion Gap 13 (12-20); Blood Urea Nitrogen 25 mg/dL (9-16); Calcium 7.4 mg/dL (8.4-10.2); Carbon Dioxide 16 mmol/L (22-29); Chloride 109 mmol/L (96-108); Creatinine Clr Calc Pharmacy 59.9; Estimated Glomerular Filt Rate > 60; Glucose Random 126 mg/dL (60-115); Sodium 135 mmol/L (135-145)
--- NOTE | 2024-01-07 14:23 | PC.NURSE ---
potassium serum 3.0 , Klor con 60 MEQ ordered, pt is refusing to take potassium tablets ,she stated that she has problem with swallowing this big tablets and she may choke on them . PATIENCE Ribeiro was notified , potassium was changed to oral liquid potassium and pt is refusing liquid PO potassium . Stated that she became nauseous when she drinks that medication . PATIENCE Ribeiro was notified .
[2024-01-07] MEDS: Potassium Chloride Packet 20 MEQ PACKET 40 MEQ PO (14:49)
--- NOTE | 2024-01-07 14:53 | PC.NURSE ---
Patient is traying to take oral liquid potassium , c/o very salty taste and stated tahat she won't be able to finish the medication
--- NOTE | 2024-01-07 15:05 | PC.NURSE ---
Nausea after one sip of oral liquid potassium , pt stated that she wont be able to finish that medication
[2024-01-07] MEDS: Omeprazole 20 MG CAPSULE.DR PO (16:19)
[2024-01-07] MEDS: Mirtazapine 15 MG TABLET PO (20:16)
[2024-01-07] MEDS: Atorvastatin Calcium 20 MG TABLET PO (20:16)
[2024-01-07] MEDS: LORazepam 1 MG TABLET PO (22:41)
--- NOTE | 2024-01-07 22:43 | ECG_ITS ---
Test Reason : chest pain Blood Pressure : / mmHG Vent. Rate : 108 BPM Atrial Rate : 108 BPM P-R Int : 160 ms QRS Dur : 068 ms QT Int : 336 ms P-R-T Axes : 060 026 046 degrees QTc Int : 450 ms Sinus tachycardia Otherwise normal ECG When compared with ECG of 06-JAN-2024 20:28, No significant change was found Referred By: Milly Oliveira Electronically Signed By:Russell Hummel
--- NOTE | 2024-01-08 | MHC.PIE ---
P.Chest Pain I.Pt c/o chest pain,stating it feels like spasms ,stating it makes it difficult to breathe .O2 applied at 2L with good effect per patient.Stat EKG done,no acute changes.Sent to Dr Jarvis.New orders for stat labs given.Pt med with Dilaudid 1 mg IV with good effect. E.Cont to monitor.
[2024-01-08] MEDS: HYDROmorphone HCl 0.5 MG/0.5 ML SYRINGE 1 MG IVPUSH (00:12)
[2024-01-08 00:45] LABS: Basophils Absolute Auto 0.1 X10*3/uL (0.0-0.2); Basophils Percent Auto 0.3 % (0-2); Eosinophils Percent Auto 0.2 % (0-4); Hematocrit 30.1 % (37.0-47.0); Hemoglobin 10.4 g/dl (12.0-16.0); Imm Gran Abs Auto 0.09 X10*3/uL (0.00-0.03); Imm Gran Pct Auto 0.5 % (0.0-0.4); Lymphocytes Absolute Auto 2.7 X10*3/uL (1.2-4.9); Lymphocytes Percent Auto 15.6 % (20-40); MANUAL DIFF FLAG SCAN; Mean Corpuscular HGB Conc 34.6 g/dl (31.0-35.0); Mean Corpuscular Hemoglobin 29.9 pg (27.0-33.0); Mean Corpuscular Volume 86.5 fL (80.0-98.0); Mean Platelet Volume 9.9 fL (9.4-12.3); Monocytes Absolute Auto 1.2 X10*3/uL (0.1-1.2); Neutrophils Absolute Auto 13.2 x10*3/uL (2.0-8.3); Neutrophils Percent Auto 76.4 % (45-73); PLT CLUMP 1; Red Blood Count 3.48 X10*6/uL (4.20-5.50); Red Cell Distribution Width 13.8 % (11.0-16.0); SCAN SMEAR FLAG 1
[2024-01-08 00:46] LABS: Platelet Count 257 X10*3/uL (160-400); White Blood Count 17.2 X10*3/uL (4.8-10.8)
[2024-01-08 01:02] LABS: Alanine Aminotransferase 22 U/L (0-31); Albumin Level 3.1 g/dL (3.5-5.0); Alkaline Phosphatase 105 U/L (39-117); Anion Gap 16 (12-20); Aspartate Amino Transferase 23 U/L (5-31); Bilirubin Total 0.3 mg/dL (0.0-1.0); Blood Urea Nitrogen 14 mg/dL (9-16); Calcium 8.3 mg/dL (8.4-10.2); Carbon Dioxide 15 mmol/L (22-29); Chloride 108 mmol/L (96-108); Creatinine Clr Calc Pharmacy 76.2; Estimated Glomerular Filt Rate > 60; Glucose Random 108 mg/dL (60-115); Magnesium 1.6 mg/dL (1.6-2.6); Potassium 3.7 mmol/L (3.3-5.1); Sodium 135 mmol/L (135-145); Total Protein 7.3 g/dL (6.5-8.0)
[2024-01-08 01:09] LABS: SLIDE REVIEW VERIFIED
[2024-01-08] MEDS: HYDROmorphone HCl 0.5 MG/0.5 ML SYRINGE 1.5 MG IVPUSH ×2 (03:18→06:29)
[2024-01-08 03:56] VITALS: BP 128/67; PULSE 113; RESP 22; TEMP 36.9; O2SAT 100
[2024-01-08] MEDS: Metoclopramide HCl 10 MG/2 ML VIAL 5 MG IVPUSH (06:23)
[2024-01-08] MEDS: Omeprazole 20 MG CAPSULE.DR PO (06:23)
[2024-01-08] MEDS: KCl 40 mEq in 0.9 % Sodium Chl 40 MEQ/1,000 ML IV.SOLN 65 MEQ IVCONT (06:32)
[2024-01-08 07:35] VITALS: BP 113/61; PULSE 100; RESP 20; TEMP 36.9; O2SAT 97
--- NOTE | 2024-01-08 09:34 | MHC.CM.PN ---
This clinical writer met with patient, will d/c home today. [facility] notified. Pt's brother will transport. Call placed to [facility] pharmacy to request bedside delivery of new medications. PCP is Nessa Stuart out of [facility].
[2024-01-08] MEDS: carvediloL 6.25 MG TABLET PO (09:55)
[2024-01-08] MEDS: 0.9 % Sodium Chloride Flush 3 ML SYRINGE IVFLUSH (09:55)
[2024-01-08] MEDS: Calcium + Vitamin D 250 MG TABLET 500 MG PO (09:55)
--- NOTE | 2024-01-08 11:11 | PM.DS ---
DS: Providers Provider Date of Service: 01/08/24 Date of admission: 01/07/24 04:13 Primary care physician: Unknown Physician Consults: 01/07/24 06:09 Consult to Cardiology Routine Consulting Provider: [facility] [place] Cardiovascular Services Reason for consultation: Chest pain Has provider been notified: Yes 01/07/24 06:57 Consult to General Surgery Routine Consulting Provider: [facility] [place] General Surgeons Reason for consultation: s/p recent ileostomy c/o nausea + vomiting Has provider been notified: No DS: Diagnosis Discharge Diagnosis (1) Chest pain: Status: Acute (2) Hypokalemia: Status: Acute (3) Hypomagnesemia: Status: Acute DS: Summary Hospital Course Hospital Course: History and physical as per admitting provider. 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 Initially the pain was mild but it got during the day. She described the pain as constant, intensity 10/10 and radiating to the jaw and head. The pain increases with deep inspiration. She denied any cough, fever or chills. Upon arrival to the emergency department she started to experience nausea and vomiting. There is no significant increased output through her ileostomy. Denied significant abdominal pain. In the ED she was found to have stable vital signs. Blood workup is remarkable for leukocytosis of 16.6. Hemoglobin is 11.4 and platelets 338. There is significant hyponatremia and hypomagnesemia, 2.7 and less than 0.6, respectively. Sodium is 132. Creatinine was 1.46 but decreased to after IV fluids. Bicarb is 14. Troponin is negative x2. ECG showed normal sinus rhythm with a heart rate of 91 beats per minutes and nonspecific ST and T-wave abnormalities. CXR is negative. ED tx: NS 1 L bolus, KCl 40 mg IV, Dilaudid 2 mg IV, magnesium 800 mg p.o., magnesium sulfate 2 g IV, Zofran 4 mg IV, Klor-Con 50 mEq p.o. 63-year-old woman treated for pleuritic chest pain. Troponins negative x2, normal O2 sats, EKG was negative for ischemic changes. She was seen evaluated by Cardiology with no recommendation for any further treatment. She was treated with IV Dilaudid, reported she can not take NSAIDs or lidocaine patches. Recommended using heat packs for discomfort, home with 2 days of narcotic pain medication, may follow up with primary care provider if she needs any further medications. Plan is to discharge patient home and she is in agreement with this. Hypomagnesemia. Repleted, sent home with prescription Hypokalemia. Repleted, May continue supplement at home. Hyperlipidemia. Continue statin GERD. Continue PPI Hypertension. Continue carvedilol, hydrochlorothiazide, losartan Mental health. Continue home medications Time Attestation Discharge Coordination Time (in mins): 45 Quality: Safe Use of Opioids Does Pt have an Active Cancer Diagnosis on the Problem List?: No Quality: Stroke Does the patient have a stroke diagnosis?: No Physical Exam Vital Signs: Vital Signs: Last Vital Signs Temp 98.5 F 01/08/24 07:35 Pulse 100 01/08/24 07:35 Resp 20 01/08/24 07:35 BP 113/61 01/08/24 07:35 Pulse Ox 97 01/08/24 07:35 O2 Del Method Room Air 01/08/24 07:35 O2 Flow Rate 2 01/08/24 03:56 BMI result Body Mass Index 24.2 Appearing in no acute distress head is normocephalic atraumatic eyes pupils are PERRLA sclera is anicteric mouth throat mucous membranes are intact and moist neck is supple no lymphadenopathy, no JVD noted lung sounds are clear to auscultation heart regular rate rhythm, clear S1, S2 positive bowel sounds, abdomen is soft, nontender neuro patient is alert x3, no focal deficits DS: Data Data Completed and Pending Completed studies during hospitalization [Text1]: Procedures Bypass Ileum to Cutaneous, Open Approach (11/30/23) Bypass Sigmoid Colon to Cutaneous, Open Approach (05/04/23) Dilation of Left Ureter with Intraluminal Device, Via Natural or Artificial Opening Endoscopic (05/04/23) Drainage of Pelvic Cavity, Percutaneous Approach (05/04/23) Excision of Sigmoid Colon, Open Approach (05/04/23) Excision of Small Intestine, Open Approach (05/04/23) Fluoroscopy of Left Kidney, Ureter and Bladder (05/04/23) Insertion of Infusion Device into Right Brachial Vein, Percutaneous Approach (11/30/23) Insertion of Infusion Device into Superior Vena Cava, Percutaneous Approach (12/29/23) Introduction of Vasopressor into Peripheral Vein, Percutaneous Approach (05/04/23) Release Peritoneum, Open Approach (11/30/23) Reposition Rectum, Open Approach (11/30/23) Transfusion of Nonautologous Red Blood Cells into Peripheral Vein, Percutaneous Approach (05/04/23) Ultrasonography of Superior Vena Cava, Guidance (12/29/23) Labs on day of discharge: Laboratory Results - last 24 hr 01/07/24 01/08/24 13:11 00:37 WBC 17.2 H RBC 3.48 L D Hgb 10.4 L D Hct 30.1 L D MCV 86.5 MCH 29.9 MCHC 34.6 RDW 13.8 Plt Count 257 MPV 9.9 Immature Gran % (Auto) 0.5 H Neut % (Auto) 76.4 H Lymph % (Auto) 15.6 L Carlton % (Auto) 7.0 Eos % (Auto) 0.2 Baso % (Auto) 0.3 Lymph # (Auto) 2.7 Carlton # (Auto) 1.2 Eos # (Auto) 0.0 Baso # (Auto) 0.1 Abs Immat Gran (auto) 0.09 H Absolute Neuts (auto) 13.2 H Absolute Nucleated RBC 0.000 Nucleated RBC % (auto) 0.0 Smear Tech's Comments VERIFIED Sodium 135 135 Potassium 3.0 L 3.7 D Chloride 109 H 108 Carbon Dioxide 16 L 15 L Anion Gap 13 16 BUN 25 H 14 Creatinine 0.75 0.59 Estim Creat Clear Calc 59.9 76.2 Estimated GFR > 60 > 60 Random Glucose 126 H 108 Calcium 7.4 L 8.3 L D Magnesium 1.6 Total Bilirubin 0.3 AST 23 ALT 22 Alkaline Phosphatase 105 Total Protein 7.3 Albumin 3.1 L Discharge Plan Discharge Anticipated Discharge Date/Time: 01/08/24 10:52 Patient Disposition: Home Health Service Discharge Diagnosis: Musculoskeletal/pleuritic chest pain Hypomagnesemia Hypokalemia MARKIE Referrals: [facility] [Outside] - 1 Day ([facility]) Nessa Hillman, [employer] ACC[employer] AUTHORIZER [Nurse Practitioner] - 1 Week Discharge Medications: New magnesium 200 mg tablet 200 mg PO DAILY Qty: 30 0RF hydromorphone [Dilaudid] 2 mg tablet 2 mg PO Q4H PRN (Reason: pain) Qty: 12 0RF Rx Instructions: Partial Fill upon patient request. Continued mirtazapine 15 mg tablet 15 mg PO BEDTIME lorazepam 1 mg tablet 1 mg PO BEDTIME PRN (Reason: anxiety) calcium carbonate-vitamin D3 [Calcium 600 + D(3)] 600 mg-5 mcg (200 unit) Tablet 1 tab PO DAILY ondansetron HCl 4 mg tablet 4 mg PO Q8H PRN (Reason: Nausea And Vomiting) acetaminophen [Tylenol] 325 mg Tablet 650 mg PO Q6H PRN (Reason: Pain) esomeprazole magnesium 20 mg Capsule,Delayed Release(Dr/Ec) 20 mg PO BID multivit with min-folic acid [Multivitamin Gummies] 200 mcg Tablet,Chewable 1 tab PO DAILY hydrochlorothiazide 25 mg tablet 25 mg PO DAILY Hold Instructions: Resume on 06/07/23. per atorvastatin 20 mg tablet 20 mg PO BEDTIME potassium chloride 10 mEq capsule, extended release 10 meq PO BID losartan 25 mg tablet 25 mg PO DAILY carvedilol 6.25 mg tablet 6.25 mg PO BIDWM Discharge Orders: Discharge Order (Routine); Ordered 01/08/24 Ordered By: Lacie Bullock Diet: Advance to usual diet Activity on Discharge: As tolerated Stand Alone Forms: Patient Portal Discharge page Print Language: Yoruba Care Plan Goals: May use warm pack for pleuritic chest pain Health Concerns: Musculoskeletal/pleuritic chest pain Hypomagnesemia Hypokalemia MARKIE Plan of Treatment: Follow-up with primary care provider as needed Take all medications as prescribed Assessment: See discharge summary
== END 2024-01-08 11:35 | disposition home health service (06) | DRG 425 ==
LOC: HO.ED 01-07 03:53 → HO.EDOVER 01-07 04:17 → HO.IMC 01-07 07:47
PROVIDERS: Physician Assistant Medical; Admitting Provider Internal Medicine; Emergency Provider Internal Medicine; PCP Nurse Practitioner Family; Visit Provider Nurse Practitioner Acute Care
DX: E87.6 Hypokalemia (principal); N17.9 Acute kidney failure, unspecified; E78.5 Hyperlipidemia, unspecified; E83.42 Hypomagnesemia; K21.9 Gastro-esophageal reflux disease without esophagitis; K22.70 Barrett's esophagus without dysplasia; I10 Essential (primary) hypertension; Z93.2 Ileostomy status; R07.89 Other chest pain; Z79.899 Other long term (current) drug therapy
CPT/HCPCS: 36415; 71045; 80048; 80053; 83735; 84484; 85025; 85027; 93005; 99285; C9113; J1170; J2405; J2765; J3475; J3480

== ENCOUNTER → 2024-01-06 20:25 | Outpatient (BNV) | payer OTHER, SELFPAY | PROVIDERS: Admitting Provider Internal Medicine; Emergency Provider Internal Medicine; Visit Provider Internal Medicine | DX: R94.31 Abnormal electrocardiogram [ECG] [EKG] (principal) | CPT/HCPCS: 93010 ==

== ENCOUNTER → 2024-01-07 04:13 | Outpatient (BNV) | payer OTHER, SELFPAY | PROVIDERS: Admitting Provider Internal Medicine; Emergency Provider Internal Medicine; Visit Provider Internal Medicine | DX: R00.0 Tachycardia, unspecified (principal) | CPT/HCPCS: 93010; 99223 ==

== ENCOUNTER → 2024-01-07 04:13 | Outpatient (BNV) | payer OTHER, SELFPAY | PROVIDERS: Admitting Provider Internal Medicine; Emergency Provider Internal Medicine; PCP Nurse Practitioner Family; Visit Provider Surgery | DX: Z93.2 Ileostomy status (principal) | CPT/HCPCS: 99222 ==

== ENCOUNTER → 2024-01-07 04:13 | Outpatient (BNV) | payer OTHER, SELFPAY | PROVIDERS: Admitting Provider Internal Medicine; Emergency Provider Internal Medicine; Visit Provider Internal Medicine | DX: R07.9 Chest pain, unspecified (principal); E87.6 Hypokalemia; E83.42 Hypomagnesemia | CPT/HCPCS: 99223; 99239; 99499 ==

== ENCOUNTER 2024-01-10 13:03 | Outpatient (AMB) | payer OTHER, SELFPAY ==
--- NOTE | 2024-01-10 13:06 | A.OFFVIS_ITS ---
Vital Signs 01/10/24 13:12 Weight 132 lb BP 114/74 Blood Pressure Location Rt brachial Position Sitting Pulse 101 H Intake Visit Reasons: s/p colostomy reversal Intake Note: Patient here s/p colostomy reversal. Reports incisions healing well. Patient c/o: feeling tired. Was seen at ER on 01-06-24 for unrelated heart condition. SX: 12-04-23. Index Clerk Required: No Accompanied by: Self / Same As Patient Allergies clams Allergy (Severe, Verified 01/10/24 13:06) Stomach Upset clavulanic acid [Augmentin] Allergy (Unknown, Verified 01/10/24 13:06) GI, Difficulty breathing codeine [CODEINE] Allergy (Unknown, Verified 01/10/24 13:06) SENSITIVITY erythromycin base [Erythromycin Base] Allergy (Unknown, Verified 01/10/24 13:06) GI, DIFF BREATHING NSAIDS (Non-Steroidal Anti-Inflamma [NSAIDS (NON-STEROIDAL ANTI-INFLAMMA] Allergy (Unknown, Verified 01/10/24 13:06) GI UPSET Sulfa (Sulfonamide Antibiotics) Allergy (Unknown, Verified 01/10/24 13:06) RASH morphine [MORPHINE] Adverse Reaction (Severe, Verified 01/10/24 13:06) NAUSEA aspirin [Aspirin] Adverse Reaction (Mild, Verified 01/10/24 13:06) STOMACH UPSET HPI Comments Details: Patient presents for follow-up. She had a recent hospitalization for electrolyte issues causing her chest discomfort but has no GI issues at present. She has tolerating a diet. Her ostomy was functioning well. She has some serous drainage from the inferior aspect of the incision but no other wound issues. [facility] Medical History (Updated 01/10/24 @ 14:47 by Jack Quan MD) Postop check Small bowel obstruction Anxiety Irritable bowel syndrome with constipation PVC (premature ventricular contraction) Myocardial infarction Hypertension Barretts esophagus GERD (gastroesophageal reflux disease) Surgical History (Updated 01/08/24 @ 00:02 by Mihai Calvillo) Status post cardiac catheterization H/O dilation and curettage History of exploratory laparotomy (05/11/23) History of esophagogastroduodenoscopy (EGD) Hx of colonoscopy Family History Father Colon cancer Paternal Aunt Colon cancer Social History Household Members: None Housing: House Do you presently have visiting nurse or other home services: Yes Alcohol intake: never Patient Tobacco Use Status: Never used Tobacco Tobacco use type: Cigarette Cigarette Packs Per Day: 0.5 Cigarettes Per Day: 10.0 Years Smoked: 30 e-Cigarette/Vaping Use: Never Used Substance Use Type: Marijuana Advance Directives Date on File: 12/29/23 service: No Physical Exam Vital Signs: Last Vital Signs Pulse 101 H 01/10/24 13:12 BP 114/74 01/10/24 13:12 GI Other: Ostomy functioning well. Incision clean dry and intact well healed. The most inferior aspect has a proximally 2 mm Assessment & Plan Assessment & Plan (1) Postop check: Code(s): Z09 - Encounter for follow-up examination after completed treatment for conditions other than malignant neoplasm Category: Medical Plan Patient is to continue increasing her activity level as tolerated, local wound care for the seroma, and will see me as directed or p.r.n.. All questions answered. Coding Level of Care Code Global (32625) Diagnoses Postop check Z09
[2024-01-10 13:12] VITALS: BP 114/74; PULSE 101
== END 2024-01-10 13:54 | disposition home or self-care (01) ==
PROVIDERS: PCP Nurse Practitioner Family; Visit Provider Surgery
DX: Z09 Encounter for follow-up examination after completed treatment for conditions other than malignant neoplasm (principal)
CPT/HCPCS: 99024

== ENCOUNTER → 2024-01-10 13:03 | Outpatient (BNVA) | payer OTHER, SELFPAY | PROVIDERS: PCP Nurse Practitioner Family; Visit Provider Surgery | DX: Z93.2 Ileostomy status (principal) ==

== ENCOUNTER 2024-01-12 10:35 | Outpatient (AMB) | payer OTHER, SELFPAY ==
--- NOTE | 2024-01-12 10:55 | MHC.OFFVIS ---
Vital Signs 01/12/24 10:57 Weight 132 lb BP 115/70 Blood Pressure Location Rt brachial Position Sitting Pulse 79 Intake Visit Reasons: S/P [place]; Dr. Velásquez Intake Note: Patient here s/p EGD/ [place] on 11-29-23. Patient c/o: no concerns. Feeling well. Reports no problems w/ ileostomy. 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 Accompanied by: Self / Same As Patient Allergies clams Allergy (Severe, Verified 01/12/24 10:56) Stomach Upset clavulanic acid [Augmentin] Allergy (Unknown, Verified 01/12/24 10:56) GI, Difficulty breathing codeine [CODEINE] Allergy (Unknown, Verified 01/12/24 10:56) SENSITIVITY erythromycin base [Erythromycin Base] Allergy (Unknown, Verified 01/12/24 10:56) GI, DIFF BREATHING NSAIDS (Non-Steroidal Anti-Inflamma [NSAIDS (NON-STEROIDAL ANTI-INFLAMMA] Allergy (Unknown, Verified 01/12/24 10:56) GI UPSET Sulfa (Sulfonamide Antibiotics) Allergy (Unknown, Verified 01/12/24 10:56) RASH morphine [MORPHINE] Adverse Reaction (Severe, Verified 01/12/24 10:56) NAUSEA aspirin [Aspirin] Adverse Reaction (Mild, Verified 01/12/24 10:56) STOMACH UPSET HPI HPI S/P [place]; Dr. Velásquez: Details: LAST VISIT Status post colostomy, follow-up exam Colovesical fistula Irritable bowel syndrome with constipation Diverticulosis Plan Patient will be going for colonoscopy. Making sure that she is moving her bowels well. Patient will start taking Dulcolax tablets 5 days before procedure 2 tablets every evening. She will do split MiraLax prep. Her procedure is not till 2:30 in the afternoon so we will have her do her 2nd half of the prep at 06:00 o'clock in the morning. What to expect before during and after procedure discussed with patient. I will see her after the procedure. Dr. Cole will see patient after to schedule colostomy reversal. Patient is agreeable to this plan and verbalizes understanding of instructions. She was given the opportunity to ask questions and all questions answered. ? Thank you for allowing me to participate in her care Medications New polyethylene glycol 3350 (Miralax) As directed by gastroenterology department at [facility] 238 grams PO ONCE 238 grams 0RF Z12.11 bisacodyl (Dulcolax (bisacodyl)) take 4 tabs at noon the day before your colonoscopy 20 mg (4 x 5 mg) PO ONCE 1 day 4 tabs 0RF Z12.11 bisacodyl (Dulcolax (bisacodyl)) 10 mg (2 x 5 mg) PO BEDTIME 60 tabs 0RF UPPER ENDOSCOPY AND COLONOSCOPY Findings: Larynx:normal Esophagus: GE junction at 35 cm, diaphragm hiatus at 37 cm, consistent with 2 cm sliding hiatal hernia, non obstructive schatzki ring noted, brushings taken for WATS and also bx from Z line Stomach: Normal mucosa. Grade 2 flap valve on retroflexed examination of the cardia. Duodenum: Normal bulb and descending duodenum, Intervention: Biopsies as noted above, brushings Findings: Terminal Ileum-normal Cecum:normal Ascending Colon: 5-6 mm sessile polyp removed with cold forceps Transverse Colon -normal Descending Colon:normal Sigmoid Colon: few diverticula seen Rectum stump: Anorectum - normal Colon preparation: [place] Bowel Preparation Scale Right colon; 2 Transverse colon: 2 Left colon; 2 (0 = Unprepared colon segment with mucosa not seen due to solid stool that cannot be cleared. 1 = Portion of mucosa of the colon segment seen, but other areas of the colon segment not well seen due to staining, residual stool and/or opaque liquid. 2 = Minor amount of residual staining, small fragments of stool and/or opaque liquid, but mucosa of colon segment seen well. 3 = Entire mucosa of colon segment seen well with no residual staining, small fragments of stool or opaque liquid) Impression and Post Procedure Diagnosis: Endoscopy Findings: schatzki ring hiatal hernia irregular Z line Colonoscopy Findings: diverticulosis colon polyp Plan: Await Pathology results Repeat Colonoscopy in 5 years due to polyp and prior history or earlier if clinically indicated High fiber diet leaflet avoid straining at stool, epsom salts and sitz bath, anusol supps or cream GERD precautions PATHOLOGY RESULTS Addendum #1 (B): Additional deeper tissue levels show colonic mucosa with no specific change; no adenomatous dysplasia seen. Electronically Signed By: Lauren Villegas 12/04/23 0857 Diagnosis A. Esophagogastric junction, biopsy: Squamocolumnar mucosa with minimal chronic inflammation; negative for intestinal metaplasia and dysplasia. B. Colon, ascending, polyp: Colonic mucosa with focal ectatic vessels, otherwise no change on initial levels (see comment). Comment: (B): Additional deeper tissue levels pending; addendum to follow GENERAL SURGERY REPORT 11/30/2023 DR. COLE Procedure; patient brought to the operating room, placed on operative table in supine position, after adequate level of general anesthesia was induced, patient was placed in lithotomy position, and under sterile technique a Erwin catheter was placed, and the ostomy sutured closed using running 2-0 silk suture.. Rectal exam was performed, The abdomen and perineum were prepped and draped in usual sterile fashion. Using longitudinal incision encompassing the prior scar from the patient's previous infraumbilical surgery scar, this carried down through skin, subcutaneous tissue, were marked cicatrization was encountered. The fascia was opened and extended along the length of the incision using Bovie. Posterior fascia and peritoneum were opened sharply and extended along the length of the incision. Moderate amount of small bowel and omental adhesions were taken down to allow entry into the abdominal cavity. Once adequately mobilized, packs and retractors were placed to enhance exposure. Next the ostomy was approached using a transverse bi- elliptical incision and carried down through skin, subcutaneous tissue, down to fascia where the ostomy was circumferentially dissected free and the ostomy was able to be placed into the abdominal cavity. Next pelvic dissection was approached where marked adhesions of omentum and small bowel were taken down and packed into the upper abdomen. The the pelvis had significant uterine adhesions to the sacral hollow. Uterus was mobilized and Using a proctosigmoidoscope, the rectal stump was identified. Splenic flexure was taken down and allowed the proximal bowel to extend into the pelvis with no tension and good vascular supply. Next using a pursestring suture on the ostomy site which was then amputated, the proximal bowel was then dilated to 25 Fijian. It Would not tolerate larger dilation. CARLOS EDUARDO anvil was placed into the proximal bowel and pursestring sutures secured. Next trans -anal placement of the EEA stapler was performed and exited through the rectal stump. This was connected with an audible click to the proximal bowel and the stapler uneventfully fired with 2 complete donuts demonstrated. Abdominal cavity was filled with saline and left colon was Occluded and rectum underwent insufflation with air which demonstrated no extravasation of air through the anastomosis. Abdominal cavity was again secured irrigated and secured for hemostasis and closed in the following manner; ostomy site has peritoneum closed using running 0 Vicryl suture. The fascia here was closed with running 1. Maxon suture. Midline incision was closed using looped 1. PDS in mass closed fashion. Skin was closed using interrupted inverted dermal 3-0 Vicryl sutures followed by Steri-Strips and sterile dressings. Ostomy site had widely spaced interrupted inverted dermal 3-0 Vicryl sutures followed by skin edwin. GENERAL SURGERY REPORT 12/04/2023 DR. 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; Jack Cole MD~ Operative Note Operative Note Date of Service: 12/04/23 Narrative: Preoperative diagnosis: [] Anastomotic dysfunction status post colostomy reversal Postop diagnosis: [] Same Procedure [] exploratory laparotomy, takedown of colo -posterior fornix vaginal anastomosis, flexible sigmoidoscopy, EEA colorectal anastomosis, temporary loop ileostomy Surgeon: [] Kadeem Nail Making Machine Tender: [] Jordon Type of Anesthesia: [] General Indication for surgery: [] Patient is approximately 4 days status post colostomy reversal for original pathology of perforated sigmoid diverticulitis with colovesicular fistula. Patient was having initially serosanguineous drainage and then liquid being past transvaginally postoperatively, which raised concern of the integrity of the anastomosis. Intraoperative findings demonstrated, as was seen originally, marked cicatrization and and profound scarring of the pelvis related to the patient's prior colovesicular fistula and perforated diverticulitis. Posterior fornix of vagina was intimately adhered to rectum.. Anastomosis consisted of proximal colon and posterior fornix of vagina. Flexible sigmoidoscopy demonstrated appreciable 'diversion proctitis' of the rectum. Because of the marked friability of the rectum status post EEA anastomosis, decision was made to perform a protective loop ileostomy . Procedure; patient brought to the operating room, placed on operative table supine position, after adequate level of general anesthesia was induced, under sterile technique, Erwin catheter was placed, and the patient underwent flexible sigmoidoscopy with findings as noted above. Abdomen and peritoneum were then prepped and draped in usual sterile fashion. Using a lower midline incision through the previous scar from the most recent surgery, this carried down through skin, subcutaneous tissue, and linea alba. Posterior fascia and peritoneum were opened and extended along the length of the incision and packs and retractors were placed to enhance exposure. [place] -posterior fornix of vagina anastomosis was identified and taken down sharply. Vaginal defect was closed using interrupted 0 Vicryl sutures. Next, the rectum was from the vagina using a combination of blunt and sharp dissection. With adequately mobilized and perfused proximal bowel, a pursestring device was used on the proximal bowel followed by anvil placement and pursestring suture secured. Transanal placement of 25 Fijian EEA was then advanced through the rectum at the desired location. Stapler was opened and the anvil connected to the stapler. Staple was uneventfully tightened and fired and 2 donuts were obtained. It was then noticed that rectal wall was quite friable secondary to the significant diversion proctitis and and there was concern of anastomotic integrity. Abdominal cavity is filled saline and the colon was insufflated , with saline filled abdominal cavity with small air leak demonstrated through the left lateral aspect of the anastomosis. It was then decided to take this anastomosis down, and repair the proctotomy using inner layer of 3-0 Vicryl and outer layer seromuscular 2-0 silk sutures. Proctosigmoidoscopy was again performed looking for an area with minimal proctitis. Another area was identified more proximal which seemed less inflamed, and again a pursestring suture was used in the proximal bowel and a new 25 Fijian EEA advanced into the rectum and opened, connected to the anvil, and uneventfully fired. Abdominal cavity was again filled with saline and proctosigmoidoscopy demonstrated a small air leak from the anastomosis which was buttressed using seromuscular 2-0 silk sutures. The anastomosis was visualized with proctosigmoidoscopy And was wide and patent with no stricture. As noted above, because of concern of potential anastomotic leak, it was decided to perform a loop ileostomy for anastomotic protection. Distal ileum was brought onto the field and through a right lower quadrant muscle-splitting incision, brought out as a loop. A loop Bar was placed through the mesenteric side , and matured at the completion of the procedure using a longitudinal incision with transmural to dermal interrupted 3-0 Vicryl sutures followed by ostomy appliance. Ostomy was pink and viable at completion of the procedure. Abdominal cavity was copiously irrigated and secured for hemostasis. Through a separate left lower quadrant stab wound incision, Alejandro-Jackson drain was left in the pelvis and secured to the skin using 2-0 nylon. Abdominal cavity was closed and mass closure fascia using 1. Maxon suture. Skin incision was closed using interrupted inverted widely spaced 3-0 Vicryl sutures followed by skin edwin. 0.5% Marcaine wound infiltration was then performed. Dressings and ABD pad applied at completion. TODAY'S VISIT: Patient is here today for follow-up. As mentioned above patient had colonoscopy done we tried to do a reversal of her anastomosis, however patient had complications due to previous surgeries in her pelvic area and due to severe diverticulosis and perforated bowel in the past. Patient has ileostomy. Just seen her surgeon last week. Dressing changes are done daily. Patient denies any redness, foul drainage. Reports that she is not having any abdominal pain. Ileostomy is draining well. Patient is eating food mostly soft, drinking plenty fluids. Patient denies in melena or bleed from her stoma or in ileostomy bag. Patient will be following with her surgeon every few weeks and will most likely go for reversal again in May. Patient denies any nausea or vomiting. Reports to have good appetite. Denies any GI concerning symptoms. [facility] Medical History Postop check Small bowel obstruction Anxiety Irritable bowel syndrome with constipation PVC (premature ventricular contraction) Myocardial infarction Hypertension Barretts esophagus GERD (gastroesophageal reflux disease) Surgical History Status post cardiac catheterization H/O dilation and curettage History of exploratory laparotomy (05/11/23) History of esophagogastroduodenoscopy (EGD) Hx of colonoscopy Family History Father Colon cancer Paternal Aunt Colon cancer Social History Household Members: None Housing: House Do you presently have visiting nurse or other home services: Yes Alcohol intake: never Patient Tobacco Use Status: Never used Tobacco Tobacco use type: Cigarette Cigarette Packs Per Day: 0.5 Cigarettes Per Day: 10.0 Years Smoked: 30 e-Cigarette/Vaping Use: Never Used Substance Use Type: Marijuana Advance Directives Date on File: 12/29/23 service: No Physical Exam Vital Signs: Last Vital Signs Pulse 79 01/12/24 10:57 BP 115/70 01/12/24 10:57 Const General: healthy appearing, no acute distress and well developed Nutritional Appearance: well nourished Orientation/consciousness: patient oriented x3 Resp Effort & Inspection: normal respiratory effort, able to speak in complete sentences, no tracheal deviation and symmetric chest movement Auscultation: clear to auscultation bilaterally Cardio Rate: regular rate GI Other: Ileostomy in place and draining light brown liquid stool. Wound below umbilicus 10 cm from stoma dressing intact. Patient following with surgeon and dressing applied to her wound daily Inspection: No distended Palpation (GI): Soft to palpation, not firm, nontender and No hepatosplenomegaly present Auscultation: normal bowel sounds General: Yes no CVA tenderness Back/Spine/Pelvis Back: no CVA tenderness Skin General skin exam: elasticity normal, turgor normal and dry skin Neuro General: patient oriented x3 Psych Appearance: grossly normal Mental Status: mental status grossly normal Assessment & Plan Assessment & Plan (1) Ileostomy in place: Code(s): Z93.2 - Ileostomy status Category: Surgical (2) Status post colostomy, follow-up exam: Code(s): Z09 - Encounter for follow-up examination after completed treatment for conditions other than malignant neoplasm; Z93.3 - Colostomy status Category: Medical (3) Colovesical fistula: Code(s): N32.1 - Vesicointestinal fistula Category: Surgical (4) Irritable bowel syndrome with constipation: Code(s): K58.1 - Irritable bowel syndrome with constipation Category: Medical (5) Diverticulosis: Code(s): K57.90 - Diverticulosis of intestine, part unspecified, without perforation or abscess without bleeding Category: Medical Plan Patient will continue followups with her surgeon. Upper endoscopy and colonoscopy were discussed with patient. No Barretts found. Patient can continue lower dose Nexium. Script for 20 mg daily given to patient. Continue with her diet and encouraged patient to drink plenty fluids. Patient will call our office when she will decide when she will have her surgery. Patient will reach out sooner if she will have any GI concerning symptoms. She is agreeable to this plan and verbalizes understanding of instructions. She was given the opportunity to ask questions and all questions answered. Thank you for allowing me to participate in her care Medications: New esomeprazole magnesium (Nexium 24HR) 20 mg PO DAILY 30 tabs 4RF Coding Level of Care Code Est Pt Level 4 (18000) Diagnoses Ileostomy in place Z93.2 Status post colostomy, follow-up exam Z09; Z93.3 Colovesical fistula N32.1 Irritable bowel syndrome with constipation K58.1 Diverticulosis K57.90 Time Spent (min) 40 Comment 25 minutes spent with patient and additional 15 minutes spent reviewing her records
[2024-01-12 10:57] VITALS: BP 115/70; PULSE 79
== END 2024-01-12 12:24 | disposition home or self-care (01) ==
PROVIDERS: PCP Nurse Practitioner Family; Visit Provider Nurse Practitioner Family
DX: Z93.2 Ileostomy status (principal); Z09 Encounter for follow-up examination after completed treatment for conditions other than malignant neoplasm; Z93.3 Colostomy status; N32.1 Vesicointestinal fistula; K58.1 Irritable bowel syndrome with constipation; K57.90 Diverticulosis of intestine, part unspecified, without perforation or abscess without bleeding
CPT/HCPCS: 99214

== ENCOUNTER → 2024-01-12 10:35 | Outpatient (BNVA) | payer OTHER, SELFPAY | PROVIDERS: PCP Nurse Practitioner Family; Visit Provider Nurse Practitioner Family ==

== ENCOUNTER 2024-03-06 08:33 | Outpatient (AMB) | payer MEDICARE, SELFPAY ==
[2024-03-06 08:50] VITALS: BP 123/79; PULSE 77
--- NOTE | 2024-03-06 08:50 | MHC.OFFVIS ---
Vital Signs 03/06/24 08:50 Weight 130 lb BP 123/79 Blood Pressure Location Rt brachial Position Sitting Pulse 77 Intake Visit Reasons: 6 wk follow up colostomy reversal Intake Note: Patient here for 6wk f/u. [facility] 01-10-24. Colostomy 11-30-23. Patient c/o: reports no new concerns. Obstetrics Gynecology Md Required: No Accompanied by: Self / Same As Patient Allergies clams Allergy (Severe, Verified 03/06/24 08:52) Stomach Upset clavulanic acid [Augmentin] Allergy (Unknown, Verified 03/06/24 08:52) GI, Difficulty breathing codeine [CODEINE] Allergy (Unknown, Verified 03/06/24 08:52) SENSITIVITY erythromycin base [Erythromycin Base] Allergy (Unknown, Verified 03/06/24 08:52) GI, DIFF BREATHING NSAIDS (Non-Steroidal Anti-Inflamma [NSAIDS (NON-STEROIDAL ANTI-INFLAMMA] Allergy (Unknown, Verified 03/06/24 08:52) GI UPSET Sulfa (Sulfonamide Antibiotics) Allergy (Unknown, Verified 03/06/24 08:52) RASH morphine [MORPHINE] Adverse Reaction (Severe, Verified 03/06/24 08:52) NAUSEA aspirin [Aspirin] Adverse Reaction (Mild, Verified 03/06/24 08:52) STOMACH UPSET Medication List - Last Reconciled 03/06/24 by Jack Quan MD acetaminophen (Tylenol) 650 mg PO Q6H PRN atorvastatin 20 mg PO BEDTIME calcium carbonate-vitamin D3 600 mg-5 mcg (200 unit) (Calcium 600 + D(3)) 1 tab PO DAILY carisoprodol 350 mg PO DAILY carvedilol 6.25 mg PO BIDWM carvedilol 3.125 mg PO BID esomeprazole magnesium (Nexium) 20 mg PO DAILY hydrochlorothiazide 25 mg PO DAILY lorazepam 1 mg PO BEDTIME PRN losartan 25 mg PO DAILY magnesium 200 mg PO DAILY mirtazapine 15 mg PO BEDTIME multivit with min-folic acid 200 mcg (Multivitamin Gummies) 1 tab PO DAILY ondansetron HCl 4 mg PO Q8H PRN potassium chloride ER 10 mEq PO BID HPI Comments Details: Patient presents for follow-up she is doing well. Tolerating a diet. Ostomy is functioning. [facility] Medical History Postop check Small bowel obstruction Anxiety Irritable bowel syndrome with constipation PVC (premature ventricular contraction) Myocardial infarction Hypertension Barretts esophagus GERD (gastroesophageal reflux disease) Surgical History Ileostomy in place Status post cardiac catheterization H/O dilation and curettage History of exploratory laparotomy (05/11/23) History of esophagogastroduodenoscopy (EGD) Hx of colonoscopy Family History Father Colon cancer Paternal Aunt Colon cancer Social History Household Members: None Housing: House Do you presently have visiting nurse or other home services: Yes Alcohol intake: never Patient Tobacco Use Status: Never used Tobacco Tobacco use type: Cigarette Cigarette Packs Per Day: 0.5 Cigarettes Per Day: 10.0 Years Smoked: 30 e-Cigarette/Vaping Use: Never Used Substance Use Type: Marijuana Advance Directives Date on File: 12/29/23 service: No Physical Exam Vital Signs: Last Vital Signs Pulse 77 03/06/24 08:50 BP 123/79 03/06/24 08:50 GI Other: Incision well healed. Ostomy functioning well Assessment & Plan Assessment & Plan (1) History of low anterior resection of rectum: Code(s): Z90.49 - Acquired absence of other specified parts of digestive tract Category: Surgical Plan: Current plan is to obtain a barium enema to document patency of the anastomosis as well as cardiac clearance and then arrangements were made for ileostomy reversal in May per patient's request. All questions answered. Orders: Orders [place] barium enema Today Z90.49 - Acquired absence of other specified parts of digestive tract Coding Level of Care Code Est Pt Level 4 (10629) Diagnoses History of low anterior resection of rectum Z90.49
== END 2024-03-06 09:01 | disposition home or self-care (01) ==
PROVIDERS: PCP Nurse Practitioner Family; Visit Provider Surgery
DX: Z90.49 Acquired absence of other specified parts of digestive tract (principal)
CPT/HCPCS: 99024

== ENCOUNTER → 2024-03-06 08:33 | Outpatient (BNVA) | payer OTHER, SELFPAY | PROVIDERS: PCP Nurse Practitioner Family; Visit Provider Surgery | DX: Z93.2 Ileostomy status (principal) ==

== ENCOUNTER 2024-03-19 08:32 | Inpatient (IN) | payer MEDICARE, SELFPAY ==
--- NOTE | ~2024-03-19 | XR_ITS ---
EXAMINATION: XR CHEST CLINICAL INFORMATION: Weakness COMPARISON: Chest x-ray on 01/07/2024 TECHNIQUE: 2 views of the chest were obtained. FINDINGS: Hazy opacity in the right upper lobe, medially. No additional areas consolidation. Mild emphysema. The cardiac mediastinal silhouette is normal. No pleural effusions. XR/XR chest 2V IMPRESSION: Hazy opacity in the right upper lobe may represent pneumonia in appropriate clinical setting.
[2024-03-19 08:49] VITALS: BP 118/89; PULSE 89; RESP 18; TEMP 36.4; O2SAT 100; BMI 23.8
--- NOTE | 2024-03-19 08:58 | ECG_ITS ---
Test Reason : cp/weakness Blood Pressure : / mmHG Vent. Rate : 084 BPM Atrial Rate : 084 BPM P-R Int : 158 ms QRS Dur : 066 ms QT Int : 364 ms P-R-T Axes : 086 059 050 degrees QTc Int : 430 ms Normal sinus rhythm Normal ECG When compared with ECG of 07-JAN-2024 23:43, No significant change was found Referred By: Generic ED Physician Electronically Signed By:SERGIO ISAACS MD
[2024-03-19 09:28] VITALS: BP 118/89; PULSE 89; RESP 18; TEMP 36.4; O2SAT 100
--- NOTE | 2024-03-19 09:54 | ED_ITS ---
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 Patient states that on she tested positive for COVID. She states that her symptoms at that time were nasal congestion and sneezing. She states that over the weekend she has had difficulty eating and drinking secondary to weakness and nausea. She states that she tried to return back to work however felt profoundly weak globally, stating that even with small tasks, she felt very fatigued. She denies any fevers, chills, chest pain, shortness of breath, cough, abdominal pain, diarrhea, or urinary symptoms. No other complaints or concerns at this time. MD Complaint: generalized weakness Onset (ago): day(s) Duration: progressively worsening Location: generalized Migration: none Severity: moderate Relieving factors: movement and exertion Exacerbating factors: none Context: recent illness Associated symptoms: loss of appetite and nausea/vomiting Related Data Home Medications ?Medication ?Instructions ?Recorded ?Confirmed atorvastatin 20 mg tablet 20 mg PO BEDTIME 03/01/23 03/06/24 hydrochlorothiazide 25 mg tablet 25 mg PO DAILY 03/01/23 03/06/24 carvedilol 6.25 mg tablet 6.25 mg PO BIDWM 10/13/23 03/06/24 losartan 25 mg tablet 25 mg PO DAILY 10/13/23 03/06/24 potassium chloride 10 mEq 10 meq PO BID 10/13/23 03/06/24 capsule,extended release calcium carbonate 600 mg-vitamin 1 tab PO DAILY 11/30/23 03/06/24 D3 5 mcg (200 unit) tablet (Calcium 600 + D(3)) lorazepam 1 mg tablet 1 mg PO BEDTIME PRN anxiety 11/30/23 03/06/24 mirtazapine 15 mg tablet 15 mg PO BEDTIME 11/30/23 03/06/24 acetaminophen 325 mg tablet 650 mg PO Q6H PRN Pain 01/07/24 03/06/24 (Tylenol) multivitamin with minerals-folic 1 tab PO DAILY 01/07/24 03/06/24 acid 200 mcg chewable tablet (Multivitamin Gummies) ondansetron HCl 4 mg tablet 4 mg PO Q8H PRN Nausea And Vomiting 01/07/24 03/06/24 carisoprodol 350 mg tablet 350 mg PO DAILY 03/06/24 03/06/24 carvedilol 3.125 mg tablet 3.125 mg PO BID 03/06/24 03/06/24 Previous Rx's ?Medication ?Instructions ?Recorded magnesium 200 mg tablet 200 mg PO DAILY #30 tabs 01/08/24 esomeprazole magnesium 20 mg 20 mg PO DAILY #30 caps 01/16/24 capsule,delayed release (Nexium) Allergies Allergy/AdvReac Type Severity Reaction Status Date / Time clams Allergy Severe Stomach Verified 03/19/24 08:55 Upset clavulanic acid [Augmentin] Allergy Unknown GI, Verified 03/19/24 08:55 Difficulty breathing codeine [CODEINE] Allergy Unknown SENSITIVIT Verified 03/19/24 08:55 Y erythromycin base Allergy Unknown GI, DIFF Verified 03/19/24 08:55 [Erythromycin Base] BREATHING NSAIDS (Non-Steroidal Allergy Unknown GI UPSET Verified 03/19/24 08:55 Anti-Inflamma [NSAIDS (NON-STEROIDAL ANTI-INFLAMMA] Sulfa (Sulfonamide Allergy Unknown RASH Verified 03/19/24 08:55 Antibiotics) morphine [MORPHINE] AdvReac Severe NAUSEA Verified 03/19/24 08:55 aspirin [Aspirin] AdvReac Mild STOMACH Verified 03/19/24 08:55 UPSET Review of Systems 2 Review of Systems: Yes all other systems are reviewed and are negative Constitutional: Constitutional: Reports as per [facility] Past Medical History Attestation statement: The following information was validated with the patient. Medical History Postop check Small bowel obstruction Anxiety Irritable bowel syndrome with constipation PVC (premature ventricular contraction) Myocardial infarction Hypertension Barretts esophagus GERD (gastroesophageal reflux disease) Surgical History Ileostomy in place Status post cardiac catheterization H/O dilation and curettage History of exploratory laparotomy (05/11/23) History of esophagogastroduodenoscopy (EGD) Hx of colonoscopy Family History Family History Father Colon cancer Paternal Aunt Colon cancer Social History Social History Household Members: None Housing: House Do you presently have visiting nurse or other home services: Yes Alcohol intake: never Patient Tobacco Use Status: Never used Tobacco Tobacco use type: Cigarette Cigarette Packs Per Day: 0.5 Cigarettes Per Day: 10.0 Years Smoked: 30 Smoked in Last 30 Days: No e-Cigarette/Vaping Use: Never Used Substance Use Type: Marijuana Advance Directives: Yes Advance Directives on File: Yes Advance Directives Date on File: 12/29/23 Do you have a plan to hurt others: No Plan service: No Physical Exam 2 Vital Signs: Vital Signs: Last Vital Signs Temp 97.6 F 03/19/24 10:08 Pulse 78 03/19/24 10:08 Resp 12 03/19/24 10:08 BP 98/71 03/19/24 10:08 Pulse Ox 96 03/19/24 10:08 O2 Del Method Room Air 03/19/24 10:08 BMI result Body Mass Index 23.8 Const: General: cooperative, comfortable and no acute distress O rientation/consciousness: patient oriented x3 Limitations: no limitations HEENT: Head: Yes normal to inspection, Yes normocephalic and Yes atraumatic Ears: hearing grossly normal bilaterally and TM's normal bilaterally General nose exam: Normal external nose present Face and sinus: Yes normal facial exam Mouth: Normal oral and palatal mucosa present, oropharynx normal and moist mucous membranes Throat: Yes posterior oropharynx normal Eyes: General: appearance normal, both eyes and all related structures E yelids: Yes eyelids normal Conjunctivae: conjunctivae normal Sclerae: s clerae normal Pupils: Equal, round and reactive pupils present EOM: EOMs intact bilaterally Neck: Neck: Yes normal visual inspection, Yes full ROM and Yes no lymphadenopathy Lymphatic: no lymphadenopathy noted Chest: Chest palpation & inspection: normal inspection of the chest Resp: Effort & Inspection: normal respiratory effort and able to speak in complete sentences Auscultation: clear to auscultation bilaterally, no crackles, no rales, no rhonchi and no wheezes Cardio: Rate: regular rate Rhythm: regular rhythm Heart sounds: S1 normal heart sound present and S2 normal heart sound present GI: Other: Abdomen is soft, nontender, nondistended Inspection: Yes normal to inspection Skin: General skin exam: no rashes or lesions noted Trauma: no lacerations or abrasions Wounds: no wounds Neuro: General: patient oriented x3 and moves all extremities Cranial nerves: Yes Equal, round and reactive pupils present Extrem: General: Yes normal to inspection Right upper extremity: normal to inspection Left upper extremity: normal to inspection Right lower extremity: normal to inspection Left lower extremity: normal to inspection Course Reevaluation(s) Reevaluation #1: Labs returned, patient has MARKIE with a creatinine of 3.03, BUN elevated at 99, she is hyponatremic at 1:28 a.m., elevated liver transaminases as well as alk phos, alongside positive COVID, likely dehydration and viral in nature. 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 On arrival, vital signs within normal limits. She is nontoxic appearing, speaking in full sentences. Differential diagnoses include COVID, URI, pneumonia, UTI, electrolyte derangement, ACS-unlikely. Plan: Labs, EKG, chest x-ray, viral swabs Differential Diagnosis Differential Diagnoses: The differential diagnosis associated with the presentation includes See above Admission/Observation Consideration of admission/observation: Escalation of care including admission/observation considered Lab Data MDM Lab Attestation statement: I reviewed the patient's lab results. Slight leukocytosis at 11.5, hyponatremic at 1:28 a.m., creatinine 3.03, BUN 99 > baseline creatinine appears to be at around .5. Liver transaminases noted to be elevated at 74/88, alk phos at 224. trop 6.5. 03/19/24 10:03 03/19/24 10:53 Labs: Lab Results 03/19/24 03/19/24 Range/Units 10:03 10:53 WBC 11.5 H (4.8-10.8) X10*3/uL RBC 4.55 D (4.20-5.50) X10*6/uL Hgb 13.3 D (12.0-16.0) g/dl Hct 39.1 D (37.0-47.0) % MCV 85.9 (80.0-98.0) fL MCH 29.2 (27.0-33.0) pg MCHC 34.0 (31.0-35.0) g/dl RDW 13.6 (11.0-16.0) % Plt Count 241 (160-400) X10*3/uL MPV 9.6 (9.4-12.3) fL Immature Gran % (Auto) 0.3 (0.0-0.4) % Neut % (Auto) 66.1 (45-73) % Lymph % (Auto) 23.0 (20-40) % [place] % (Auto) 7.7 (2-11) % Eos % (Auto) 2.5 (0-4) % Baso % (Auto) 0.4 (0-2) % Lymph # (Auto) 2.7 (1.2-4.9) X10*3/uL [place] # (Auto) 0.9 (0.1-1.2) X10*3/uL Eos # (Auto) 0.3 (0.0-0.4) X10*3/uL Baso # (Auto) 0.1 (0.0-0.2) X10*3/uL Abs Immat Gran (auto) 0.04 H (0.00-0.03) X10*3/uL Absolute Neuts (auto) 7.6 (2.0-8.3) x10*3/uL Absolute Nucleated RBC 0.000 (0.0-0.012) X10*3/uL Nucleated RBC % (auto) 0.0 (0.0-0.2) /100WBC Sodium 128 L (135-145) mmol/L Potassium 3.7 (3.3-5.1) mmol/L Chloride 98 (96-108) mmol/L Carbon Dioxide 14 L (22-29) mmol/L Anion Gap 20 (12-20) BUN 99 H (9-16) mg/dL Creatinine 3.03 H (0.5-1.4) mg/dL Estim Creat Clear Calc 14.6 Estimated GFR 15 Random Glucose 111 (60-115) mg/dL Calcium 9.9 D (8.4-10.2) mg/dL Total Bilirubin 0.3 (0.0-1.0) mg/dL AST 74 H (5-31) U/L ALT 88 H (0-31) U/L Alkaline Phosphatase 224 H (39-117) U/L Troponin I High Sens 6.5 (<3.5-17.0) ng/L Total Protein 10.2 H (6.5-8.0) g/dL Albumin 4.5 (3.5-5.0) g/dL Independent Interpretation I performed an independent interpretation of an: EKG Interpretation: Normal sinus rhythm at a ventricular rate of 84 beats per minute, CA interval 158, QT QTC 364/430, no ST elevation or depression. Radiology Impression Discussion of test interpretation with radiology: I have reviewed the radiologist's reading. Radiologist Impression: XR/XR chest 2V IMPRESSION: Hazy opacity in the right upper lobe may represent pneumonia in appropriate clinical setting. Dictated By: Leonor Zuniga MD Discharge Plan Discharge Clinical Impression: MARKIE (acute kidney injury), COVID-19 Patient Disposition: Admitted As Inpatient Prescriptions: No Action esomeprazole magnesium [Nexium] 20 mg capsule,delayed release(DR/EC) 20 mg PO DAILY Qty: 30 4RF mirtazapine 15 mg tablet 15 mg PO BEDTIME lorazepam 1 mg tablet 1 mg PO BEDTIME PRN (Reason: anxiety) calcium carbonate-vitamin D3 [Calcium 600 + D(3)] 600 mg-5 mcg (200 unit) Tablet 1 tab PO DAILY ondansetron HCl 4 mg tablet 4 mg PO Q8H PRN (Reason: Nausea And Vomiting) acetaminophen [Tylenol] 325 mg Tablet 650 mg PO Q6H PRN (Reason: Pain) multivit with min-folic acid [Multivitamin Gummies] 200 mcg Tablet,Chewable 1 tab PO DAILY magnesium 200 mg tablet 200 mg PO DAILY Qty: 30 0RF hydrochlorothiazide 25 mg tablet 25 mg PO DAILY Hold Instructions: Resume on 06/07/23. per atorvastatin 20 mg tablet 20 mg PO BEDTIME potassium chloride 10 mEq capsule, extended release 10 meq PO BID losartan 25 mg tablet 25 mg PO DAILY carvedilol 6.25 mg tablet 6.25 mg PO BIDWM carisoprodol 350 mg tablet 350 mg PO DAILY carvedilol 3.125 mg tablet 3.125 mg PO BID Print Language: [place]
[2024-03-19 10:08] VITALS: BP 98/71; PULSE 78; RESP 12; TEMP 36.4; O2SAT 96
[2024-03-19 10:08] LABS: MANUAL DIFF FLAG NO
--- NOTE | 2024-03-19 10:08 | PC.NURSE ---
PIV started, labs drawn/sent.
[2024-03-19 10:13] LABS: Basophils Absolute Auto 0.1 X10*3/uL (0.0-0.2); Basophils Percent Auto 0.4 % (0-2); Eosinophils Absolute Auto 0.3 X10*3/uL (0.0-0.4); Eosinophils Percent Auto 2.5 % (0-4); Hematocrit 39.1 % (37.0-47.0); Hemoglobin 13.3 g/dl (12.0-16.0); Imm Gran Abs Auto 0.04 X10*3/uL (0.00-0.03); Imm Gran Pct Auto 0.3 % (0.0-0.4); Lymphocytes Absolute Auto 2.7 X10*3/uL (1.2-4.9); Mean Corpuscular Hemoglobin 29.2 pg (27.0-33.0); Mean Corpuscular Volume 85.9 fL (80.0-98.0); Mean Platelet Volume 9.6 fL (9.4-12.3); Monocytes Absolute Auto 0.9 X10*3/uL (0.1-1.2); Monocytes Percent Auto 7.7 % (2-11); Neutrophils Absolute Auto 7.6 x10*3/uL (2.0-8.3); Neutrophils Percent Auto 66.1 % (45-73); Platelet Count 241 X10*3/uL (160-400); Red Blood Count 4.55 X10*6/uL (4.20-5.50); Red Cell Distribution Width 13.6 % (11.0-16.0); White Blood Count 11.5 X10*3/uL (4.8-10.8)
[2024-03-19 10:29] LABS: Troponin-I High Sensitivity 6.5 ng/L (<3.5-17.0)
[2024-03-19 11:18] LABS: Alanine Aminotransferase 88 U/L (0-31); Albumin Level 4.5 g/dL (3.5-5.0); Alkaline Phosphatase 224 U/L (39-117); Anion Gap 20 (12-20); Aspartate Amino Transferase 74 U/L (5-31); Bilirubin Total 0.3 mg/dL (0.0-1.0); Blood Urea Nitrogen 99 mg/dL (9-16); Calcium 9.9 mg/dL (8.4-10.2); Carbon Dioxide 14 mmol/L (22-29); Chloride 98 mmol/L (96-108); Creatinine Clr Calc Pharmacy 14.6; Estimated Glomerular Filt Rate 15; Glucose Random 111 mg/dL (60-115); Potassium 3.7 mmol/L (3.3-5.1); Sodium 128 mmol/L (135-145); Total Protein 10.2 g/dL (6.5-8.0)
[2024-03-19 11:36] LABS: Influenza A PCR NEGATIVE (Negative); Influenza B PCR NEGATIVE (Negative); Resp Syncy Virus RNA Qual PCR NEGATIVE (Negative); SARS COV2 PCR INHOUSE POSITIVE (Negative)
[2024-03-19] MEDS: ondansetron HCL 4 MG/2 ML VIAL IVPUSH (11:41)
[2024-03-19] MEDS: 0.9 % Sodium Chloride 1,000 ML 999 ML IV (11:41)
[2024-03-19 12:03] LABS: Magnesium 2.2 mg/dL (1.6-2.6)
--- NOTE | 2024-03-19 13:02 | PHA.MEDREC ---
Pharmacy Consult ? Medication Reconciliation Pharmacy has completed the medication reconciliation.
--- NOTE | 2024-03-19 13:26 | P.HPHOSP_ITS ---
History of Present Illness Date of Service: 03/19/24 <PATIENCE Velez - Last Filed: 03/19/24 13:47> Attending physician on admission: David Guallpa <PATIENCE Velez - Last Filed: 03/19/24 13:47> Chief Complaint: nausea, poor po intake <PATIENCE Velez - Last Filed: 03/19/24 13:47> 64 year old female with hx of NSTEMI (status post cardiac cath, no stent placement or CABG), hypertension, GERD, Menon's esophagus, hyperlipidemia, IBS, complicated diverticulitis requiring colostomy, s/p Tye's procedure for colovesicular fistula from diverticular disease (November 2023) for elective reversal of end colostomy, s/p end-to-end anastomosis (complicated with inadvertent anastomosis of the colon to the posterior vagina requiring laparotomy, takedown of the colovaginal anastomosis, repair of the posterior vaginal wall, end-to-end anastomosis of the colon to the rectal stump and diverting loop ileostomy with the MIKI drain on December 03 of this year -MKII drain was removed) presented to the ED for evaluation of generalized weakness, myalgia, and nausea with poor PO intake. She was diagnosed with COVID19 5 days ago after developing sneezing and congestion. Later that day developed nausea and vomiting episodes. Has not had further episodes of vomiting but has had ongoing nausea with poor PO intake. No fevers, chills, st, abd pain, urinary symtoms, cough, sob, lightheadedness, chest pain. Since arrival, VSS though bp a little soft. Mild leukocytosis 11.5. Creat 3.03, baseline around 0.5. BUN 99. Na 128, Co2 14. AST 74, ALT 88, Trop 6.5. Positive for COVID 19. CXR shows possible RUL infiltrate. EKG NSR, rate 84, no acute ishcemic changes. In the ED, given zofran and IVF. <PATIENCE Velez Last Filed: 03/19/24 13:47> Review of Systems 2 Review of Systems: Yes all other systems are reviewed and are negative < PATIENCE Velez Last Filed: 03/19/24 13:47> [facility] Medical History: Medical History Postop check Small bowel obstruction Anxiety Irritable bowel syndrome with constipation PVC (premature ventricular contraction) Myocardial infarction Hypertension Barretts esophagus GERD (gastroesophageal reflux disease) <PATIENCE Velez - Last Filed: 03/19/24 13:47> Family History: Family History Father Colon cancer Paternal Aunt Colon cancer <PATIENCE Velez - Last Filed: 03/19/24 13:47> Surgical History: Surgical History Ileostomy in place Status post cardiac catheterization H/O dilation and curettage History of exploratory laparotomy (05/11/23) History of esophagogastroduodenoscopy (EGD) Hx of colonoscopy <PATIENCE Velez - Last Filed: 03/19/24 13:47> Social History: Social History Household Members: None Housing: House Do you presently have visiting nurse or other home services: No Alcohol intake: never Patient Tobacco Use Status: Former Tobacco user Tobacco use type: Cigarette Cigarette Packs Per Day: 0.5 Cigarettes Per Day: 10.0 Years Smoked: 30 Smoked in Last 30 Days: No e-Cigarette/Vaping Use: Never Used Use of substances other than those prescribed or required for medical reasons: Yes Substance Use Type: Marijuana Substance Use Frequency: Daily Last Used Substance: Days (ago) Last Used Substance Other:: last night Currently Displaying Signs/Symptoms of Drug Intoxication Withdrawal: No Any prior treatment program specific to substance use: No Have you been hit, kicked, punched, or otherwise hurt by someone within the past year? If so, by whom?: No Do you feel safe in your current relationship?: No Current Relationship Is there a partner from a previous relationship who is making you feel unsafe now?: No Are you made to feel afraid or neglected: No Spiritual Healthcare Practices: none per patient Buddhist Healthcare Practices: none per patient Cultural Healthcare Practices: none per patient Advance Directives: Yes Advance Directives Information Provided: No Advance Directives on File: Yes Advance Directives Date on File: 12/29/23 Do you have a plan to hurt others: No Plan Recently lost weight without trying: No Eating poorly because of decreased appetite: Yes Nutrition Risks: No Nutritional Risk Patient : No : No Poor oral hygiene: No service: No <PATIENCE Velez - Last Filed: 03/19/24 13:47> Meds Allergies/Adverse reactions: Allergies Allergy/AdvReac Type Severity Reaction Status Date / Time clams Allergy Severe Stomach Verified 03/19/24 08:55 Upset clavulanic acid [Augmentin] Allergy Unknown GI, Verified 03/19/24 08:55 Difficulty breathing codeine [CODEINE] Allergy Unknown SENSITIVIT Verified 03/19/24 08:55 Y erythromycin base Allergy Unknown GI, DIFF Verified 03/19/24 08:55 [Erythromycin Base] BREATHING NSAIDS (Non-Steroidal Allergy Unknown GI UPSET Verified 03/19/24 08:55 Anti-Inflamma [NSAIDS (NON-STEROIDAL ANTI-INFLAMMA] Sulfa (Sulfonamide Allergy Unknown RASH Verified 03/19/24 08:55 Antibiotics) morphine [MORPHINE] AdvReac Severe NAUSEA Verified 03/19/24 08:55 aspirin [Aspirin] AdvReac Mild STOMACH Verified 03/19/24 08:55 UPSET melatonin AdvReac Vomiting Verified 03/20/24 08:17 <PATIENCE Velez - Last Filed: 03/19/24 13:47> Active Medications: Current Medications Acetaminophen (Acetaminophen 325 Mg Tablet) 650 mg PO Q6H PRN PRN Reason: Pain, Mild (Pain Scale 1-3), fever or headache Calcium Carbonate (Calcium Carbonate 750 Mg Tab.Chew) 750 mg PO Q4H PRN PRN Reason: Heartburn Heparin Sodium (Porcine) (Heparin Sodium,Porcine 5,000 Unit/Ml Vial) 5,000 unit SUBCUT Q12H [place] Sodium Chloride (Ns) 1,000 mls @ 100 mls/hr IVCONT .Q10H [place] Magnesium Hydroxide (Milk Of Magnesia 30 Ml Oral.Susp) 30 ml PO DAILY PRN PRN Reason: Constipation Melatonin (Melatonin 3 Mg Tablet) 6 mg PO BEDTIME PRN PRN Reason: Insomnia Ondansetron HCl (Ondansetron Hcl 4 Mg/2 Ml Vial) 4 mg IVPUSH Q8H PRN PRN Reason: Nausea and Vomiting Sodium Chloride (0.9 % Sodium Chloride Flush 3 Ml Syringe) 3 ml IVFLUSH QSHIFT [place] <PATIENCE Velez - Last Filed: 03/19/24 13:47> Home medications: Home Medications ?Medication ?Instructions ?Recorded ?Confirmed ?Last Taken ?Type atorvastatin 20 mg tablet 20 mg PO BEDTIME 03/01/23 03/19/24 03/19/24 09:00 History hydrochlorothiazide 25 mg tablet 25 mg PO DAILY 03/01/23 03/19/24 03/19/24 09:00 History potassium chloride 10 mEq 10 meq PO BID 10/13/23 03/19/24 03/19/24 09:00 History capsule,extended release calcium carbonate 600 mg-vitamin 1 tab PO DAILY 11/30/23 03/19/24 03/19/24 09:00 History D3 5 mcg (200 unit) tablet (Calcium 600 + D(3)) lorazepam 1 mg tablet 1 mg PO BEDTIME PRN anxiety 11/30/23 03/19/24 03/19/24 09:00 History mirtazapine 15 mg tablet 15 mg PO BEDTIME 11/30/23 03/19/24 03/19/24 09:00 History acetaminophen 325 mg tablet 650 mg PO Q12H PRN Pain 01/07/24 03/19/24 03/19/24 09:00 History (Tylenol) multivitamin with minerals-folic 1 tab PO DAILY 01/07/24 03/19/24 03/19/24 09:00 History acid 200 mcg chewable tablet (Multivitamin Gummies) ondansetron HCl 4 mg tablet 4 mg PO Q8H PRN Nausea And Vomiting 01/07/24 03/19/24 03/19/24 09:00 History carvedilol 3.125 mg tablet 3.125 mg PO BID 03/06/24 03/19/24 03/19/24 09:00 History carisoprodol 350 mg tablet 350 mg PO BEDTIME 03/19/24 03/19/24 03/19/24 09:00 History magnesium glycinate 800 mg PO DAILY 03/19/24 03/19/24 03/19/24 09:00 History <PATIENCE Velez - Last Filed: 03/19/24 13:47> Physical Exam 2 Vital Signs and Narrative: Vital Signs: Last Vital Signs Temp 97.6 F 03/19/24 10:08 Pulse 78 03/19/24 10:08 Resp 12 03/19/24 10:08 BP 98/71 03/19/24 10:08 Pulse Ox 96 03/19/24 10:08 O2 Del Method Room Air 03/19/24 10:08 BMI result Body Mass Index 23.8 <PATIENCE Velez - Last Filed: 03/19/24 13:47> Constitutional - Awake and Alert, No apparent distress Eyes - PERRLA, EOMI Cardiovascular - S1S2, RRR, No edema Respiratory - Normal lung expansion, Normal respiratory effort, No respiratory distress, CTA bilaterally Gastrointestinal - NT / ND; +BS; No rebound or guarding Extremities - no calf tenderness bilaterally, no swelling Skin - Warm/Dry Neurological - Alert & oriented x3 Psychological - Appropriate affect <PATIENCE Velez - Last Filed: 03/19/24 13:47> Results Labs CBC and Chem 7: 03/20/24 06:20 03/20/24 06:20 <PATIENCE Velez - Last Filed: 03/19/24 13:47> Labs: Laboratory Results - last 24 hr 03/19/24 03/19/24 10:03 10:53 MCV 85.9 MCH 29.2 MCHC 34.0 RDW 13.6 Plt Count 241 MPV 9.6 Immature Gran % (Auto) 0.3 Neut % (Auto) 66.1 Lymph % (Auto) 23.0 [place] % (Auto) 7.7 Eos % (Auto) 2.5 Baso % (Auto) 0.4 Lymph # (Auto) 2.7 [place] # (Auto) 0.9 Eos # (Auto) 0.3 Baso # (Auto) 0.1 Abs Immat Gran (auto) 0.04 H Absolute Neuts (auto) 7.6 Absolute Nucleated RBC 0.000 Nucleated RBC % (auto) 0.0 Anion Gap 20 Estim Creat Clear Calc 14.6 Estimated GFR 15 Random Glucose 111 Calcium 9.9 D Magnesium 2.2 Total Bilirubin 0.3 AST 74 H ALT 88 H Alkaline Phosphatase 224 H Troponin I High Sens 6.5 Total Protein 10.2 H Albumin 4.5 Influenza Type A (PCR) NEGATIVE Influenza Type B (PCR) NEGATIVE RSV RNA Qual (PCR) NEGATIVE SARS-CoV-2 RNA (RT-PCR) POSITIVE A <PATIENCE Velez Last Filed: 03/19/24 13:47> Imaging Radiologist's Impressions: Impressions Chest X-Ray 03/19/24 09:20 IMPRESSION: Hazy opacity in the right upper lobe may represent pneumonia in appropriate clinical setting. 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 #Acute kidney injury- likely prerenal due to hypovolemia/hypoperfusion from poor po intake in setting of MARKIE -Creat 3.03, baseline 0.5 -Continue IVF @100ml/hr -avoid nephrotoxins -low sodium diet -I&O -follow renal function.lytes -if not improving consider nephro consult #COVID-19 -no hypoxia- no indicatation for iv steroids/antiviral therapy -no uri symptoms -airborne/contact precautions -ondansetron prn #Acute hyponatremia -likely r/t above, complicated by ongoing hctz use -hold hctz -continue ivf -follow lytes #GERD -ppi #HTN -hold hctz due to above, bp soft, monitor for now #h/o sbo with high flow ileostomy in place -ostomy care dvt prophylaxis- heparin full code pt requires inpt stay at least 2 midnights for further management with ivf given significantly elevated creatinine (MARKIE) from baseline in setting of poor po intake r/t covid 19. 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 #Acute kidney injury- likely prerenal due to hypovolemia/hypoperfusion from poor po intake in setting of MARKIE -Creat 3.03, baseline 0.5 -Continue IVF @100ml/hr -avoid nephrotoxins -low sodium diet -I&O -follow renal function.lytes -if not improving consider nephro consult #COVID-19 -no hypoxia- no indicatation for iv steroids/antiviral therapy -no uri symptoms -airborne/contact precautions -ondansetron prn #Acute hyponatremia -likely r/t above, complicated by ongoing hctz use -hold hctz -continue ivf -follow lytes #GERD -ppi #HTN -hold hctz due to above, bp soft, monitor for now #h/o sbo with high flow ileostomy in place -ostomy care dvt prophylaxis- heparin full code pt requires inpt stay at least 2 midnights for further management with ivf given significantly elevated creatinine (MARKIE) from baseline in setting of poor po intake r/t covid 19. She will require close monitoring of i&o as well as monitoring of renal function and lytes that cannot be safely achieved in lesser level of care <David Guallpa MD - Last Filed: 03/20/24 08:20> Quality Stroke Does the patient have a stroke diagnosis?: No <PATIENCE Velez - Last Filed: 03/19/24 13:47> VTE Prior VTE?: No <PATIENCE Velez - Last Filed: 03/19/24 13:47> VTE Risk Level:: Medical - moderate - high <PATIENCE Velez - Last Filed: 03/19/24 13:47> VTE Device Contraindication: Treatment Not Indicated <PATIENCE Velez - Last Filed: 03/19/24 13:47> VTE Drug Contraindication: N/A - Med Ordered <PATIENCE Velez - Last Filed: 03/19/24 13:47>
[2024-03-19] MEDS: Heparin Sodium,Porcine 5,000 UNIT/ML VIAL 5000 UNIT SUBCUT (13:33)
[2024-03-19] MEDS: 0.9 % Sodium Chloride 1,000 ML 100 ML IVCONT ×2 (13:41→17:12)
[2024-03-19 14:16] VITALS: BP 109/64; PULSE 67; RESP 14; TEMP 36.4; O2SAT 99
--- NOTE | 2024-03-19 15:11 | MHC.EDTECH ---
pt was walked to bathroom with zero assistance to empty ileostomy bag, pt independently walked back to room
[2024-03-19 16:42] VITALS: BP 109/59; PULSE 70; RESP 20; TEMP 36.4; O2SAT 100
[2024-03-19] MEDS: Acetaminophen 325 MG TABLET 650 MG PO (17:12)
[2024-03-19 19:01] VITALS: BP 92/42; PULSE 71; RESP 20; TEMP 36.6; O2SAT 99
[2024-03-19] MEDS: traMADoL HCL 50 MG TABLET 25 MG PO (20:45)
[2024-03-19] MEDS: Potassium Chloride ER 10 MEQ TABLET.ER PO (20:46)
[2024-03-19] MEDS: Mirtazapine 15 MG TABLET PO (20:47)
[2024-03-19] MEDS: Sodium Bicarbonate 650 MG TABLET PO (20:47)
[2024-03-19] MEDS: carisoprodoL 350 MG TABLET PO (20:47)
[2024-03-19] MEDS: Lactated Ringers 1,000 ML 100 ML IVCONT (20:51)
[2024-03-20] VITALS (10 sets, daily range): BP systolic 76–116; BP diastolic 42–74; PULSE 65–85; RESP 18–20; TEMP 36.1–37.2; O2SAT 98–100
[2024-03-20] MEDS: Heparin Sodium,Porcine 5,000 UNIT/ML VIAL 5000 UNIT SUBCUT ×2 (02:13→14:46)
[2024-03-20] MEDS: ondansetron HCL 4 MG/2 ML VIAL IVPUSH (04:33)
[2024-03-20] MEDS: Omeprazole 20 MG CAPSULE.DR PO (05:24)
[2024-03-20 06:30] LABS: MANUAL DIFF FLAG NO
[2024-03-20 06:45] LABS: Basophils Percent Auto 0.4 % (0-2); Eosinophils Absolute Auto 0.4 X10*3/uL (0.0-0.4); Eosinophils Percent Auto 4.6 % (0-4); Hemoglobin 10.8 g/dl (12.0-16.0); Imm Gran Abs Auto 0.04 X10*3/uL (0.00-0.03); Imm Gran Pct Auto 0.5 % (0.0-0.4); Lymphocytes Absolute Auto 2.2 X10*3/uL (1.2-4.9); Lymphocytes Percent Auto 29.6 % (20-40); Mean Corpuscular HGB Conc 33.8 g/dl (31.0-35.0); Mean Corpuscular Hemoglobin 29.3 pg (27.0-33.0); Mean Corpuscular Volume 86.7 fL (80.0-98.0); Mean Platelet Volume 9.5 fL (9.4-12.3); Monocytes Absolute Auto 0.7 X10*3/uL (0.1-1.2); Monocytes Percent Auto 8.6 % (2-11); Neutrophils Absolute Auto 4.3 x10*3/uL (2.0-8.3); Neutrophils Percent Auto 56.3 % (45-73); Platelet Count 183 X10*3/uL (160-400); Red Blood Count 3.69 X10*6/uL (4.20-5.50); Red Cell Distribution Width 13.5 % (11.0-16.0); White Blood Count 7.6 X10*3/uL (4.8-10.8)
[2024-03-20 07:20] LABS: Calcium 8.6 mg/dL (8.4-10.2)
[2024-03-20 07:21] LABS: Anion Gap 11 (12-20); Blood Urea Nitrogen 66 mg/dL (9-16); Carbon Dioxide 19 mmol/L (22-29); Chloride 109 mmol/L (96-108); Creatinine Clr Calc Pharmacy 31.5; Estimated Glomerular Filt Rate 37; Glucose Random 96 mg/dL (60-115); Potassium 2.4 mmol/L (3.3-5.1); Sodium 137 mmol/L (135-145)
[2024-03-20] MEDS: Acetaminophen 325 MG TABLET 650 MG PO (08:08)
--- NOTE | 2024-03-20 08:20 | HO.PM.IMPN ---
Subjective Subjective Date of Service: 03/20/24 Interval History: follow-up on MARKIE, hypokalemia hyponatremia asymptomatic COVID interval history: She is feeling better today, but has headache that she has been experiencing since having covid about a week ago Physical Exam Vital Signs: Vital Signs: Last Vital Signs Temp 98.9 F 03/20/24 07:19 Pulse 85 03/20/24 07:19 Resp 18 03/20/24 07:19 BP 116/74 03/20/24 07:19 Pulse Ox 100 03/20/24 07:19 O2 Del Method Room Air 03/20/24 07:19 BMI result Body Mass Index 23.8 General: AO X 3, no acute distress Resp: CTA bilateral CVS: S1,S2,RRR GI: +BS, NT, no distention, ileostomy bag in place Skin: No rash Neuro: motor grossly intact Psych: appropriate affect Objective Data Active Medications Acetaminophen (Acetaminophen 325 Mg Tablet) 650 mg PO Q6H PRN PRN Reason: Pain, Mild (Pain Scale 1-3), fever or headache Last Admin: 03/20/24 08:08 Dose: 650 mg Documented By: LUIS Calcium Carbonate (Calcium Carbonate 750 Mg Tab.Chew) 750 mg PO Q4H PRN PRN Reason: Heartburn Calcium Carbonate/Cholecalciferol (Calcium + Vitamin D 250 Mg Tablet) 500 mg PO DAILY [facility] Carisoprodol (Carisoprodol 350 Mg Tablet) 350 mg PO BEDTIME [facility] Last Admin: 03/19/24 20:47 Dose: 350 mg Documented By: CHEPE Carvedilol (Carvedilol 3.125 Mg Tablet) 3.125 mg PO BID [facility]; Protocol Last Admin: 03/20/24 00:53 Dose: Not Given Documented By: CHEPE Non-Admin Reason: See Note Heparin Sodium (Porcine) (Heparin Sodium,Porcine 5,000 Unit/Ml Vial) 5,000 unit SUBCUT Q12H [facility] Last Admin: 03/20/24 02:13 Dose: 5,000 unit Documented By: CHEPE Lactated Ringer's (Lr) 1,000 mls @ 100 mls/hr IVCONT .Q10H [facility] Last Admin: 03/19/24 20:51 Dose: 100 mls/hr Documented By: CHEPE Potassium Chloride (Potassium Chloride/H20) 10 meq in 100 mls @ 100 mls/hr IV Q1H [facility] Stop: 03/20/24 09:29 Lorazepam (Lorazepam 1 Mg Tablet) 1 mg PO BEDTIME PRN PRN Reason: anxiety Magnesium Hydroxide (Milk Of Magnesia 30 Ml Oral.Susp) 30 ml PO DAILY PRN PRN Reason: Constipation Melatonin (Melatonin 3 Mg Tablet) 6 mg PO BEDTIME PRN PRN Reason: Insomnia Mirtazapine (Mirtazapine 15 Mg Tablet) 15 mg PO BEDTIME [facility] Last Admin: 03/19/24 20:47 Dose: 15 mg Documented By: CHEPE Multivitamins/Vitamin C (Multivitamin Tablet) 1 tab PO DAILY [facility] Omeprazole (Omeprazole 20 Mg Capsule.Dr) 20 mg PO DAILY@0630 [facility] Last Admin: 03/20/24 05:24 Dose: 20 mg Documented By: CHEPE Ondansetron HCl (Ondansetron Hcl 4 Mg/2 Ml Vial) 4 mg IVPUSH Q8H PRN PRN Reason: Nausea and Vomiting Last Admin: 03/20/24 04:33 Dose: 4 mg Documented By: CHEPE Oxycodone HCl (Oxycodone Hcl Immed Release 5 Mg Tablet) 5 mg PO Q6H PRN PRN Reason: Pain, Severe (Pain Scale 7-10) Potassium Chloride (Potassium Chloride Er 10 Meq Tablet.Er) 10 meq PO BID [facility] Last Admin: 03/19/24 20:46 Dose: 10 meq Documented By: CHEPE Sodium Bicarbonate (Sodium Bicarbonate 650 Mg Tablet) 650 mg PO BID [facility] Last Admin: 03/19/24 20:47 Dose: 650 mg Documented By: CHEPE Sodium Chloride (0.9 % Sodium Chloride Flush 3 Ml Syringe) 3 ml IVFLUSH QSHIFT [facility] Last Admin: 03/20/24 00:56 Dose: Not Given Documented By: CHEPE Non-Admin Reason: IV Running Labs 03/20/24 06:20 03/20/24 06:20 Labs: Laboratory Results - last 24 hr 03/19/24 03/19/24 03/20/24 10:03 10:53 06:20 MCV 85.9 86.7 MCH 29.2 29.3 MCHC 34.0 33.8 RDW 13.6 13.5 Plt Count 241 183 MPV 9.6 9.5 Immature Gran % (Auto) 0.3 0.5 H Neut % (Auto) 66.1 56.3 Lymph % (Auto) 23.0 29.6 [place] % (Auto) 7.7 8.6 Eos % (Auto) 2.5 4.6 H Baso % (Auto) 0.4 0.4 Lymph # (Auto) 2.7 2.2 [place] # (Auto) 0.9 0.7 Eos # (Auto) 0.3 0.4 Baso # (Auto) 0.1 0.0 Abs Immat Gran (auto) 0.04 H 0.04 H Absolute Neuts (auto) 7.6 4.3 Absolute Nucleated RBC 0.000 0.000 Nucleated RBC % (auto) 0.0 0.0 Anion Gap 20 11 L Estim Creat Clear Calc 14.6 31.5 Estimated GFR 15 37 Random Glucose 111 96 Calcium 9.9 D 8.6 D Magnesium 2.2 Total Bilirubin 0.3 AST 74 H ALT 88 H Alkaline Phosphatase 224 H Troponin I High Sens 6.5 Total Protein 10.2 H Albumin 4.5 Influenza Type A (PCR) NEGATIVE Influenza Type B (PCR) NEGATIVE RSV RNA Qual (PCR) NEGATIVE SARS-CoV-2 RNA (RT-PCR) POSITIVE A Assessment and Plan (1) COVID-19: Status: Acute (2) MARKIE (acute kidney injury): Status: Acute Plan 64 year old female with hx of NSTEMI (status post cardiac cath, no stent placement or CABG), hypertension, GERD, Menon's esophagus, hyperlipidemia, IBS, complicated diverticulitis requiring colostomy, s/p Tye's procedure for colovesicular fistula from diverticular disease (November 2023) for elective reversal of end colostomy, s/p end-to-end anastomosis (complicated with inadvertent anastomosis of the colon to the posterior vagina requiring laparotomy, takedown of the colovaginal anastomosis, repair of the posterior vaginal wall, end-to-end anastomosis of the colon to the rectal stump and diverting loop ileostomy with the MIKI drain on December 03 of this year -MIKI drain was removed) admitted for MARKIE related to COVID-19. #Acute kidney injury- likely prerenal due to hypovolemia/hypoperfusion from poor po intake in setting of MARKIE, resolving with IVF -Creat 3.03--> 1.4, baseline 0.5 -continue IVF -Continue IVF @100ml/hr -avoid nephrotoxins -low sodium diet -I&O -follow renal function lytes -nephro consult #Hypokalemia--acute on chronic, suspect from ileostomy vs possible RTA and use of HCTZ -replace with PO and IV K, and recheck later -check magnesium #Acute on chronic metabolic acidosis--likely from RTA -PO bicab, discuss with renal re terminal manager treatent #COVID-19 -no hypoxia- no indicatation for iv steroids/antiviral therapy -no uri symptoms -airborne/contact precautions -ondansetron prn #Acute, mild hyponatremia--resolved -likely r/t above, complicated by ongoing hctz use -hold hctz -continue ivf -follow lytes #GERD -ppi #HTN -hold hctz due to above and low BPs, bp soft, monitor for now, if needed start Norvasc #h/o sbo with high flow ileostomy in place -ostomy care dvt prophylaxis- heparin full code need for inpt: MARKIE needing IVF and monitoring of renal function Quality Stroke Does the patient have a stroke diagnosis?: No VTE Prior VTE?: No VTE Risk Level:: Medical - moderate - high VTE Device Contraindication: Treatment Not Indicated VTE Drug Contraindication: N/A - Med Ordered
[2024-03-20] MEDS: carvediloL 3.125 MG TABLET PO ×2 (08:26→20:08)
[2024-03-20] MEDS: Multivitamin TABLET 1 TAB PO (08:27)
[2024-03-20] MEDS: Potassium Chloride ER 20 MEQ TAB.ER.PRT 40 MEQ PO (08:27)
[2024-03-20] MEDS: Potassium Chloride/H20 10 MEQ/100 ML PIGGYBACK 100 MEQ IV ×2 (08:30→12:06)
[2024-03-20] MEDS: Lactated Ringers 1,000 ML 100 ML IVCONT ×2 (08:30→14:47)
[2024-03-20] MEDS: Calcium + Vitamin D 250 MG TABLET 500 MG PO (08:54)
[2024-03-20] MEDS: HYDROmorphone HCl 2 MG TABLET 1 MG PO ×2 (10:08→20:08)
[2024-03-20] MEDS: Sodium Bicarbonate 650 MG TABLET PO ×2 (10:09→20:08)
[2024-03-20] MEDS: Potassium Chloride ER 10 MEQ TABLET.ER PO ×2 (10:09→20:07)
--- NOTE | 2024-03-20 13:16 | PM.CNNEP ---
History of Present Illness Reason for Consult Consult date: 03/20/24 Chief Complaint Chief complaint: MARKIE History of Present Illness Narrative: 64 year old female with hx of NSTEMI (status post cardiac cath, no stent placement or CABG), hypertension, GERD, Menon's esophagus, hyperlipidemia, IBS, complicated diverticulitis requiring colostomy, s/p Tye's procedure for colovesicular fistula from diverticular disease (November 2023) for elective reversal of end colostomy, s/p end-to-end anastomosis (complicated with inadvertent anastomosis of the colon to the posterior vagina requiring laparotomy, takedown of the colovaginal anastomosis, repair of the posterior vaginal wall, end-to-end anastomosis of the colon to the rectal stump and diverting loop ileostomy with the MIKI drain on December 03 of this year -MIKI drain was removed) presented to the ER for evaluation of generalized weakness, myalgia, and nausea with poor PO intake. She was diagnosed with COVID19 5 days ago after developing sneezing and congestion. Later that day developed nausea and vomiting episodes. Has not had further episodes of vomiting but has had ongoing nausea with poor PO intake. No fevers, chills, st, abd pain, urinary symtoms, cough, sob, lightheadedness, chest pain. Since arrival, VSS though bp a little soft. Mild leukocytosis 11.5. Creat 3.03, baseline around 0.5. BUN 99. Na 128, Co2 14. AST 74, ALT 88, Trop 6.5. Positive for COVID 19. CXR shows possible RUL infiltrate. EKG NSR, rate 84, no acute ishcemic changes. She was admitted for further management. Nephrology has been consulted to assist in her clinical care during her current hospital stay Review of Systems Review of Systems Yes all other systems are reviewed and are negative [facility] Past Medical History Medical History Postop check Small bowel obstruction Anxiety Irritable bowel syndrome with constipation PVC (premature ventricular contraction) Myocardial infarction Hypertension Barretts esophagus GERD (gastroesophageal reflux disease) Family History Family History Father Colon cancer Paternal Aunt Colon cancer Surgical History Surgical History Ileostomy in place Status post cardiac catheterization H/O dilation and curettage History of exploratory laparotomy (05/11/23) History of esophagogastroduodenoscopy (EGD) Hx of colonoscopy Social History Social History Household Members: None Housing: House Do you presently have visiting nurse or other home services: No Alcohol intake: never Patient Tobacco Use Status: Former Tobacco user Tobacco use type: Cigarette Cigarette Packs Per Day: 0.5 Cigarettes Per Day: 10.0 Years Smoked: 30 e-Cigarette/Vaping Use: Never Used Substance Use Type: Marijuana Advance Directives Date on File: 12/29/23 service: No Meds Allergies Allergy/AdvReac Type Severity Reaction Status Date / Time clams Allergy Severe Stomach Verified 03/19/24 08:55 Upset clavulanic acid [Augmentin] Allergy Unknown GI, Verified 03/19/24 08:55 Difficulty breathing codeine [CODEINE] Allergy Unknown SENSITIVIT Verified 03/19/24 08:55 Y erythromycin base Allergy Unknown GI, DIFF Verified 03/19/24 08:55 [Erythromycin Base] BREATHING NSAIDS (Non-Steroidal Allergy Unknown GI UPSET Verified 03/19/24 08:55 Anti-Inflamma [NSAIDS (NON-STEROIDAL ANTI-INFLAMMA] Sulfa (Sulfonamide Allergy Unknown RASH Verified 03/19/24 08:55 Antibiotics) morphine [MORPHINE] AdvReac Severe NAUSEA Verified 03/19/24 08:55 aspirin [Aspirin] AdvReac Mild STOMACH Verified 03/19/24 08:55 UPSET melatonin AdvReac Vomiting Verified 03/20/24 08:17 Active Medications: Current Medications Acetaminophen (Acetaminophen 325 Mg Tablet) 650 mg PO Q6H PRN PRN Reason: Pain, Mild (Pain Scale 1-3), fever or headache Last Admin: 03/20/24 08:08 Dose: 650 mg Calcium Carbonate (Calcium Carbonate 750 Mg Tab.Chew) 750 mg PO Q4H PRN PRN Reason: Heartburn Calcium Carbonate/Cholecalciferol (Calcium + Vitamin D 250 Mg Tablet) 500 mg PO DAILY [facility] Last Admin: 03/20/24 08:54 Dose: 500 mg Carisoprodol (Carisoprodol 350 Mg Tablet) 350 mg PO BEDTIME [facility] Last Admin: 03/19/24 20:47 Dose: 350 mg Carvedilol (Carvedilol 3.125 Mg Tablet) 3.125 mg PO BID [facility]; Protocol Last Admin: 03/20/24 08:26 Dose: 3.125 mg Heparin Sodium (Porcine) (Heparin Sodium,Porcine 5,000 Unit/Ml Vial) 5,000 unit SUBCUT Q12H [facility] Last Admin: 03/20/24 02:13 Dose: 5,000 unit Hydromorphone HCl (Hydromorphone Hcl 2 Mg Tablet) 1 mg PO Q4H PRN PRN Reason: Pain, Severe (Pain Scale 7-10) Last Admin: 03/20/24 10:08 Dose: 1 mg Lactated Ringer's (Lr) 1,000 mls @ 100 mls/hr IVCONT .Q10H [facility] Last Admin: 03/20/24 08:30 Dose: 100 mls/hr Lorazepam (Lorazepam 1 Mg Tablet) 1 mg PO BEDTIME PRN PRN Reason: anxiety Magnesium Hydroxide (Milk Of Magnesia 30 Ml Oral.Susp) 30 ml PO DAILY PRN PRN Reason: Constipation Mirtazapine (Mirtazapine 15 Mg Tablet) 15 mg PO BEDTIME [facility] Last Admin: 03/19/24 20:47 Dose: 15 mg Multivitamins/Vitamin C (Multivitamin Tablet) 1 tab PO DAILY [facility] Last Admin: 03/20/24 08:27 Dose: 1 tab Omeprazole (Omeprazole 20 Mg Capsule.Dr) 20 mg PO DAILY@0630 [facility] Last Admin: 03/20/24 05:24 Dose: 20 mg Ondansetron HCl (Ondansetron Hcl 4 Mg/2 Ml Vial) 4 mg IVPUSH Q8H PRN PRN Reason: Nausea and Vomiting Last Admin: 03/20/24 04:33 Dose: 4 mg Potassium Chloride (Potassium Chloride Er 10 Meq Tablet.Er) 10 meq PO BID [facility] Last Admin: 03/20/24 10:09 Dose: 10 meq Sodium Bicarbonate (Sodium Bicarbonate 650 Mg Tablet) 650 mg PO BID [facility] Last Admin: 03/20/24 10:09 Dose: 650 mg Sodium Chloride (0.9 % Sodium Chloride Flush 3 Ml Syringe) 3 ml IVFLUSH QSHIFT [facility] Last Admin: 03/20/24 08:28 Dose: Not Given Home Medications ?Medication ?Instructions ?Recorded ?Confirmed ?Last Taken ?Type atorvastatin 20 mg tablet 20 mg PO BEDTIME 03/01/23 03/19/24 03/19/24 09:00 History hydrochlorothiazide 25 mg tablet 25 mg PO DAILY 03/01/23 03/19/24 03/19/24 09:00 History potassium chloride 10 mEq 10 meq PO BID 10/13/23 03/19/24 03/19/24 09:00 History capsule,extended release calcium carbonate 600 mg-vitamin 1 tab PO DAILY 11/30/23 03/19/24 03/19/24 09:00 History D3 5 mcg (200 unit) tablet (Calcium 600 + D(3)) lorazepam 1 mg tablet 1 mg PO BEDTIME PRN anxiety 11/30/23 03/19/24 03/19/24 09:00 History mirtazapine 15 mg tablet 15 mg PO BEDTIME 11/30/23 03/19/24 03/19/24 09:00 History acetaminophen 325 mg tablet 650 mg PO Q12H PRN Pain 01/07/24 03/19/24 03/19/24 09:00 History (Tylenol) multivitamin with minerals-folic 1 tab PO DAILY 01/07/24 03/19/24 03/19/24 09:00 History acid 200 mcg chewable tablet (Multivitamin Gummies) ondansetron HCl 4 mg tablet 4 mg PO Q8H PRN Nausea And Vomiting 01/07/24 03/19/24 03/19/24 09:00 History carvedilol 3.125 mg tablet 3.125 mg PO BID 03/06/24 03/19/24 03/19/24 09:00 History carisoprodol 350 mg tablet 350 mg PO BEDTIME 03/19/24 03/19/24 03/19/24 09:00 History magnesium glycinate 800 mg PO DAILY 03/19/24 03/19/24 03/19/24 09:00 History Physical Exam Vital Signs: Last Vital Signs Temp 97.8 F 03/20/24 11:22 Pulse 72 03/20/24 11:22 Resp 18 03/20/24 11:22 BP 101/59 L 03/20/24 11:22 Pulse Ox 99 03/20/24 11:22 O2 Del Method Room Air 03/20/24 11:22 BMI result Body Mass Index 23.8 Const General: no acute distress Orientation/consciousness: patient oriented x3 Eyes EOM: EOMs intact bilaterally Neck Neck: Yes supple Resp Auscultation: diminished lung sounds Cardio Rate: regular rate GI Palpation (GI): Soft to palpation Neuro General: patient oriented x3 and moves all extremities Results Lab Results 03/20/24 06:20 03/20/24 06:20 Lab results: Chemistry 03/19/24 03/20/24 10:53 06:20 Sodium 128 L 137 Potassium 3.7 2.4 L* D Carbon Dioxide 14 L 19 L BUN 99 H 66 H Creatinine 3.03 H 1.41 H Calcium 9.9 D 8.6 D Hematology 03/19/24 03/20/24 10:03 06:20 WBC 11.5 H 7.6 Hgb 13.3 D 10.8 L Plt Count 241 183 Assessment and Plan (1) MARKIE (acute kidney injury): Status: Acute Plan MARKIE due to compromsie in renal perfusion Unlikely to have any siginificant tubular cytotoxicity from COVID UO good; No reason to suspect GN/AIN Serum creatinine improving with supportive care No diuretics/ACEI/ARB/NSAID's for now Keep K over 4.0. C/W rest of current management Procedures Date of Service Date of Service: 03/20/24
--- NOTE | 2024-03-20 14:20 | MHC.CM.PN ---
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 She will arrange a ride home at [place] from a friend. PCP is Nessa Hillman, HCP confirmed is Sylwia, DCP is home, self care. CM to follow for DC needs.
[2024-03-20] MEDS: carisoprodoL 350 MG TABLET PO (20:07)
[2024-03-20] MEDS: 0.9 % Sodium Chloride Flush 3 ML SYRINGE IVFLUSH (20:09)
[2024-03-20] MEDS: LORazepam 1 MG TABLET PO (20:37)
[2024-03-21] MEDS: Heparin Sodium,Porcine 5,000 UNIT/ML VIAL 5000 UNIT SUBCUT ×2 (02:36→13:02)
[2024-03-21] MEDS: 0.9 % Sodium Chloride Flush 3 ML SYRINGE IVFLUSH ×2 (02:52→08:36)
[2024-03-21 03:59] VITALS: BP 105/64; PULSE 77; RESP 17; TEMP 36.5; O2SAT 94
[2024-03-21] MEDS: Omeprazole 20 MG CAPSULE.DR PO (07:02)
[2024-03-21 07:29] LABS: Anion Gap 14 (12-20); Blood Urea Nitrogen 31 mg/dL (9-16); Calcium 8.9 mg/dL (8.4-10.2); Carbon Dioxide 19 mmol/L (22-29); Chloride 109 mmol/L (96-108); Creatinine Clr Calc Pharmacy 56.9; Estimated Glomerular Filt Rate > 60; Glucose Random 98 mg/dL (60-115); Magnesium 1.5 mg/dL (1.6-2.6); Sodium 139 mmol/L (135-145)
[2024-03-21 08:00] VITALS: BP 90/52; PULSE 75; RESP 18; TEMP 36.4; O2SAT 99
[2024-03-21 08:06] LABS: Potassium 2.8 mmol/L (3.3-5.1)
[2024-03-21] MEDS: Magnesium Sulfate/H2O 2 GM/50 ML PIGGYBACK IV (08:30)
[2024-03-21] MEDS: Potassium Chloride ER 20 MEQ TAB.ER.PRT 40 MEQ PO ×2 (08:31→12:55)
[2024-03-21] MEDS: Calcium + Vitamin D 250 MG TABLET 500 MG PO (08:32)
[2024-03-21] MEDS: Sodium Bicarbonate 650 MG TABLET PO (08:34)
[2024-03-21 08:35] VITALS: BP 90/52; PULSE 75
[2024-03-21 11:29] VITALS: BP 109/65; PULSE 78; RESP 18; TEMP 36.6; O2SAT 99
[2024-03-21 12:57] VITALS: BP 95/53
[2024-03-21] MEDS: Spironolactone 25 MG TABLET 12.5 MG PO (12:57)
[2024-03-21 14:55] LABS: Anion Gap 12 (12-20); Carbon Dioxide 24 mmol/L (22-29); Chloride 106 mmol/L (96-108); Potassium 3.2 mmol/L (3.3-5.1); Sodium 139 mmol/L (135-145)
--- NOTE | 2024-03-21 14:57 | P.DS_ITS ---
DS: Providers Provider Date of Service: 03/21/24 Date of admission: 03/19/24 13:21 Primary care physician: Nessa Hillman NP Consults: 03/19/24 18:41 Consult to Nephrology Routine Consulting Provider: [facility] Reason for consultation: aMrkie, metabolic acidosis Has provider been notified: Yes DS: Diagnosis Discharge Diagnosis (1) MARKIE (acute kidney injury): Status: Acute DS: Summary Hospital Course Hospital Course: admission hpi Chief Complaint: nausea, poor po intake <PATIENCE Velez - Last Filed: 03/19/24 13:47> 64 year old female with hx of NSTEMI (status post cardiac cath, no stent placement or CABG), hypertension, GERD, Menon's esophagus, hyperlipidemia, IBS, complicated diverticulitis requiring colostomy, s/p Tye's procedure for colovesicular fistula from diverticular disease (November 2023) for elective reversal of end colostomy, s/p end-to-end anastomosis (complicated with inadvertent anastomosis of the colon to the posterior vagina requiring laparotomy, takedown of the colovaginal anastomosis, repair of the posterior vaginal wall, end-to-end anastomosis of the colon to the rectal stump and diverting loop ileostomy with the MIKI drain on December 03 of this year -MIKI drain was removed) presented to the ED for evaluation of generalized weakness, myalgia, and nausea with poor PO intake. She was diagnosed with COVID19 5 days ago after developing sneezing and congestion. Later that day developed nausea and vomiting episodes. Has not had further episodes of vomiting but has had ongoing nausea with poor PO intake. No fevers, chills, st, abd pain, urinary symtoms, cough, sob, lightheadedness, chest pain. Since arrival, VSS though bp a little soft. Mild leukocytosis 11.5. Creat 3.03, baseline around 0.5. BUN 99. Na 128, Co2 14. AST 74, ALT 88, Trop 6.5. Positive for COVID 19. CXR shows possible RUL infiltrate. EKG NSR, rate 84, no acute ishcemic changes. In the ED, given zofran and IVF. Hospital course: She presented with nausea and poor oral intake after shital COVID about a week ago. Her work-up revealed MARKIE with a serum creatinine (Scr) of 3 and hypokalemia as low as 2.4. She takes HCTZ, and the record showed that she has chronic hypokalemia and a high-output ileostomy. ESTELITA is asymptomatic. She was admitted, hydrated, and had potassium replaced both IV and orally, along with magnesium replacement. MARKIE has resolved, Scr is now 0.78, 1. 4 the day prior, and her present potassium is 3.2. She was seen by the nephrology team, who recommended stopping HCTZ and adding Aldactone 12.5 mg daily. She will have repeat labs in a week. She felt comfortable and could not stay in the hospital another day. She will continue her usual dose of potassium and magnesium supplements and follow up with the nephrology team. Final diagnoses: 1. MARKIE 2. Hypokalemia 3. dehydration 4. Hypomagnesemia Time Attestation Discharge Coordination Time (in mins): 45 Quality: Safe Use of Opioids Does Pt have an Active Cancer Diagnosis on the Problem List?: No Quality: Stroke Does the patient have a stroke diagnosis?: No Physical Exam Vital Signs: Vital Signs: Last Vital Signs Temp 97.9 F 03/21/24 11:29 Pulse 78 03/21/24 11:29 Resp 18 03/21/24 11:29 BP 95/53 L 03/21/24 12:57 Pulse Ox 99 03/21/24 11:29 O2 Del Method Room Air 03/21/24 11:29 BMI result Body Mass Index 23.8 General: AO X 3, no acute distress Resp: CTA bilateral CVS: S1,S2,RRR GI: +BS, NT, no distention, ileostomy in place Skin: No rash Neuro: motor grossly intact Psych: appropriate affect DS: Data Data Completed and Pending Labs on day of discharge: Laboratory Results - last 24 hr 03/21/24 03/21/24 06:15 14:41 Hold Purple Top SEE NOTE Sodium 139 139 Potassium 2.8 L* 3.2 L Chloride 109 H 106 Carbon Dioxide 19 L 24 Anion Gap 14 12 BUN 31 H Creatinine 0.78 Estim Creat Clear Calc 56.9 Estimated GFR > 60 Random Glucose 98 Calcium 8.9 Magnesium 1.5 L Discharge Plan Discharge Anticipated Discharge Date/Time: 03/21/24 14:52 Patient Disposition: Home, Self-Care Discharge Diagnosis: recovery from kidney failure, low patassium Referrals: AthJeramie gonzalez MD [Physician] - 1 Week Nessa Hillman NP [Primary Care Provider] - 1 Week Discharge Medications: New spironolactone 25 mg Tablet 12.5 mg PO DAILY Qty: 30 0RF Protocol: Hold for SBP< HOLD for SBP < : 90 Continued esomeprazole magnesium [Nexium] 20 mg capsule,delayed release(DR/EC) 20 mg PO DAILY Qty: 30 4RF mirtazapine 15 mg tablet 15 mg PO BEDTIME lorazepam 1 mg tablet 1 mg PO BEDTIME PRN (Reason: anxiety) calcium carbonate-vitamin D3 [Calcium 600 + D(3)] 600 mg-5 mcg (200 unit) Tablet 1 tab PO DAILY ondansetron HCl 4 mg tablet 4 mg PO Q8H PRN (Reason: Nausea And Vomiting) acetaminophen [Tylenol] 325 mg Tablet 650 mg PO Q12H PRN (Reason: Pain) multivit with min-folic acid [Multivitamin Gummies] 200 mcg Tablet,Chewable 1 tab PO DAILY carisoprodol 350 mg tablet 350 mg PO BEDTIME magnesium glycinate 100 mg magnesium capsule 800 mg PO DAILY atorvastatin 20 mg tablet 20 mg PO BEDTIME potassium chloride 10 mEq capsule, extended release 10 meq PO BID carvedilol 3.125 mg tablet 3.125 mg PO BID Discontinued hydrochlorothiazide 25 mg tablet 25 mg PO DAILY Hold Instructions: Resume on 06/07/23. per MD Discharge Orders: Discharge Order (Routine); Ordered 03/21/24 Ordered By: David Guallpa Diet: Advance to usual diet Activity on Discharge: As tolerated Stand Alone Forms: Patient Portal Discharge page, Work/School Release Print Language: Wolof Other Ambulatory Orders: Basic Metabolic Panel Fasting (Routine) Timeframe: [id number] Facility: [facility] - Location: Laboratory Ordered By: David Guallpa Care Plan Goals: recovery from kidney failure, dehydration and low patassium Health Concerns: Low potassium level dehydration acute kidney failure COVID-19 Plan of Treatment: stop taking hydrochlorothiazide take Aldactone as recommended continue taking potassium supplements follow-up with the kidney doctor Dr. Allred to have repeat labs done next week Assessment: see above Discharge Date/Time: 03/21/24 15:10
--- NOTE | 2024-03-21 15:21 | MHC.CM.PN ---
Pt has been medically cleared for DC, she will go home via private transport, plan: self care.
== END 2024-03-21 15:10 | disposition home or self-care (01) | DRG 640 ==
LOC: HO.ED 11:44 → HO.EDOVER 13:57 → HO.S3 14:12 → HO.EDOVER 14:20 → HO.IMC 14:45
PROVIDERS: Physician Assistant Medical; Admitting Provider Physician Assistant; Emergency Provider Student in an Organized Health Care Education/Training Program; PCP Nurse Practitioner Family; Visit Provider Internal Medicine
DX: E83.42 Hypomagnesemia (principal); U07.1 COVID-19; N17.9 Acute kidney failure, unspecified; E87.1 Hypo-osmolality and hyponatremia; E87.21 Acute metabolic acidosis; E87.22 Chronic metabolic acidosis; E86.0 Dehydration; K21.9 Gastro-esophageal reflux disease without esophagitis; I10 Essential (primary) hypertension; E86.1 Hypovolemia; I25.2 Old myocardial infarction; Z93.2 Ileostomy status; Z87.891 Personal history of nicotine dependence; Z79.899 Other long term (current) drug therapy
CPT/HCPCS: 0241U; 36415; 71046; 80048; 80051; 80053; 83735; 84484; 85025; 93005; 99285; J1644; J2405; J3475; J3480; J7120

== ENCOUNTER → 2024-03-19 08:58 | Outpatient (BNV) | payer MEDICARE, SELFPAY | PROVIDERS: Admitting Provider Physician Assistant; Emergency Provider Student in an Organized Health Care Education/Training Program; PCP Nurse Practitioner Family; Visit Provider Internal Medicine Cardiovascular Disease | DX: R07.9 Chest pain, unspecified (principal) | CPT/HCPCS: 93010 ==

== ENCOUNTER → 2024-03-19 13:21 | Outpatient (BNV) | payer OTHER, SELFPAY | PROVIDERS: Admitting Provider Physician Assistant; Emergency Provider Student in an Organized Health Care Education/Training Program; PCP Nurse Practitioner Family; Visit Provider Internal Medicine Nephrology | DX: N17.9 Acute kidney failure, unspecified (principal) | CPT/HCPCS: 99222 ==

== ENCOUNTER → 2024-03-19 13:21 | Outpatient (BNV) | payer OTHER, MEDICARE, SELFPAY | PROVIDERS: Admitting Provider Physician Assistant; Emergency Provider Student in an Organized Health Care Education/Training Program; PCP Nurse Practitioner Family; Visit Provider Physician Assistant | DX: N17.9 Acute kidney failure, unspecified (principal) | CPT/HCPCS: 99223; 99232; 99239 ==

== ENCOUNTER 2024-03-25 12:04 | Outpatient (AMB) | payer OTHER, MEDICARE, SELFPAY ==
--- NOTE | 2024-03-25 12:27 | MHC.OFFVIS ---
Vital Signs 03/25/24 12:35 Height 5 ft 2 in Weight 126 lb 8.725 oz BMI 23.1 BP 100/70 Blood Pressure Location Lt brachial Position Sitting Pulse 87 Intake Visit Reasons: HS pt/Kadeem/Nstemi 2022 /[employer] Required: No Accompanied by: Self / Same As Patient Allergies clams Allergy (Severe, Verified 03/19/24 08:55) Stomach Upset clavulanic acid [Augmentin] Allergy (Unknown, Verified 03/19/24 08:55) GI, Difficulty breathing codeine [CODEINE] Allergy (Unknown, Verified 03/19/24 08:55) SENSITIVITY erythromycin base [Erythromycin Base] Allergy (Unknown, Verified 03/19/24 08:55) GI, DIFF BREATHING NSAIDS (Non-Steroidal Anti-Inflamma [NSAIDS (NON-STEROIDAL ANTI-INFLAMMA] Allergy (Unknown, Verified 03/19/24 08:55) GI UPSET Sulfa (Sulfonamide Antibiotics) Allergy (Unknown, Verified 03/19/24 08:55) RASH morphine [MORPHINE] Adverse Reaction (Severe, Verified 03/19/24 08:55) NAUSEA aspirin [Aspirin] Adverse Reaction (Mild, Verified 03/19/24 08:55) STOMACH UPSET melatonin Adverse Reaction (Verified 03/20/24 08:17) Vomiting Medication List - Last Reconciled 03/25/24 by Lupillo Sinclair MD acetaminophen (Tylenol) 650 mg PO Q12H PRN atorvastatin 20 mg PO BEDTIME calcium carbonate-vitamin D3 600 mg-5 mcg (200 unit) (Calcium 600 + D(3)) 1 tab PO DAILY carisoprodol 350 mg PO BEDTIME carvedilol 3.125 mg PO BID esomeprazole magnesium (Nexium) 20 mg PO DAILY magnesium glycinate 800 mg PO DAILY mirtazapine 15 mg PO BEDTIME multivit with min-folic acid 200 mcg (Multivitamin Gummies) 1 tab PO DAILY ondansetron HCl 4 mg PO Q8H PRN potassium chloride ER 10 mEq PO BID spironolactone 12.5 mg See Protocol PO DAILY HPI Comments Details: Kia is here for cardiac consultation. Previously seen at [facility] but she would like to switch to our practice. She was seen in inpatient consultation in the past. Last year, she had a diagnosis of stress-induced cardiomyopathy. In that setting, cardiac catheterization without any significant disease. She has lost a lot of weight and got very deconditioned but otherwise no clear-cut cardiac symptoms. She states that her blood pressure is now running quite low these days. She is on carvedilol 3.125 mg b.i.d. but she is worried that her blood pressure is running too low. She was on ARB but not anymore. Apart from deconditioning no specific cardiac concerns. She needs another surgery -ileostomy reversal. [facility] Medical History Postop check Small bowel obstruction Anxiety Irritable bowel syndrome with constipation PVC (premature ventricular contraction) Myocardial infarction Hypertension Barretts esophagus GERD (gastroesophageal reflux disease) Surgical History Ileostomy in place Status post cardiac catheterization H/O dilation and curettage History of exploratory laparotomy (05/11/23) History of esophagogastroduodenoscopy (EGD) Hx of colonoscopy Family History (Updated 03/25/24 @ 12:38 by Katarina Kaur CMA) Father Colon cancer Congestive heart failure Paternal Aunt Colon cancer Mother Congestive heart failure Afib Social History Household Members: None Housing: House Do you presently have visiting nurse or other home services: No Alcohol intake: never Patient Tobacco Use Status: Former Tobacco user Tobacco use type: Cigarette Cigarette Packs Per Day: 0.5 Cigarettes Per Day: 10.0 Years Smoked: 30 e-Cigarette/Vaping Use: Never Used Substance Use Type: Marijuana Advance Directives Date on File: 12/29/23 service: No Review of Systems Const Denies chills, Denies fatigue, Denies fever(s), Denies weight gain and Denies weight loss ENT Denies dizziness Card Denies chest pain, Denies leg edema, Denies lightheadedness, Denies palpitations, Denies dyspnea on exertion, Denies orthopnea and Denies other Resp Denies cough and Denies dyspnea on exertion GI Denies hematochezia and Denies change in stool character Musc Denies abnormal gait, Denies muscle weakness, Denies numbness, Denies radiating pain into limb and Denies tingling Neuro Denies abnormal gait, Denies dizziness, Denies numbness and Denies tingling Endo Denies fatigue and Denies palpitations Physical Exam Vital Signs: Last Vital Signs Pulse 87 03/25/24 12:35 BP 100/70 03/25/24 12:35 BMI result Body Mass Index 23.1 Const General: comfortable and no acute distress Orientation/consciousness: patient oriented x3 HEENT Other: Unremarkable Head: Yes normal to inspection Neck Neck: Yes normal visual inspection Chest Chest palpation & inspection: normal inspection of the chest Resp Auscultation: clear to auscultation bilaterally Cardio Palpation: normal PMI Heart sounds: S1 normal heart sound present, S2 normal heart sound present, no gallops, no murmurs and no rubs GI Palpation (GI): Soft to palpation Back/Spine/Pelvis Other: unremarkable Skin General skin exam: no rashes or lesions noted Neuro General: patient oriented x3 Extrem General: Yes normal to inspection Psych Mental Status: mental status grossly normal Office Procedures EKG Details: EKG with underlying sinus rhythm at 87/Min; no significant ST-T changes and otherwise unremarkable[place]. [id number], Complete Assessment & Plan Assessment & Plan (1) Preoperative cardiovascular examination: Code(s): Z01.810 - Encounter for preprocedural cardiovascular examination Category: Medical (2) Stress-induced cardiomyopathy: Code(s): I51.81 - Takotsubo syndrome Category: Medical Plan Cardiac data reviewed. Last year, LVEF was as low as 10-20% in setting of medical illness. Then she underwent cardiac catheterization that showed no significant disease. Suspected to be stress-induced cardiomyopathy. Last echocardiogram from 07/24/2023 with normal LVEF at 55-60%. Overall, stress-induced cardiomyopathy with recovered LVEF. She is concerned about somewhat high pulse rate in the 90s or so and lowish blood pressures. Could be all from deconditioning. With regard to beta-blockers, she would like to just take it once a day as she believes it is lowering her BP too much. As she is on only a very small dose of Coreg, we may have to just stop it completely. For now, she will just try to do once a day. A small dose of beta-lokesh is reasonable for cardiac protection to prevent recurrent stress-induced cardiomyopathy. However, if low blood pressure issues persist, we can just stop it. We discussed about this at length today. Will repeat echocardiogram for LVEF due to upcoming surgery. Follow-up in 3 months. All questions were answered. Orders: Orders CA echo transthoracic complete Today I51.81 - Takotsubo syndrome Coding Level of Care Code Est Pt Level 4 (99671) Diagnoses Preoperative cardiovascular examination Z01.810 Stress-induced cardiomyopathy I51.81 CPT Codes EKG - CPT: 79759-[id number], Complete ([id number])
[2024-03-25 12:35] VITALS: BP 100/70; PULSE 87; BMI 23.1
== END 2024-03-25 12:59 | disposition home or self-care (01) ==
PROVIDERS: PCP Nurse Practitioner Family; Visit Provider Internal Medicine
DX: I51.81 Takotsubo syndrome (principal); Z01.810 Encounter for preprocedural cardiovascular examination
CPT/HCPCS: 93010; 99214

== ENCOUNTER → 2024-03-25 12:04 | Outpatient (BNVA) | payer MEDICARE, SELFPAY | PROVIDERS: PCP Nurse Practitioner Family; Visit Provider Internal Medicine | DX: Z01.810 Encounter for preprocedural cardiovascular examination (principal); I51.81 Takotsubo syndrome | CPT/HCPCS: 93005; 99212 ==

== ENCOUNTER 2024-03-26 14:31 | Outpatient (AMB) | payer OTHER, MEDICARE, SELFPAY ==
[2024-03-26 14:34] VITALS: BP 110/80; PULSE 102; O2SAT 98; BMI 23.0
--- NOTE | 2024-03-26 14:34 | HO.NEPHOV ---
Vital Signs 03/26/24 14:34 Height 5 ft 2 in Weight 126 lb BMI 23.0 BP 110/80 Blood Pressure Location Lt brachial Position Sitting Pulse 102 H Pulse Source Pulse Oximeter Pulse Oximetry (%) 98 Oxygen Delivery Method Room Air Intake Visit Reasons: MARKIE/ Conf Assessment Coordinator Required: No Accompanied by: Self / Same As Patient Allergies clams Allergy (Severe, Verified 03/26/24 14:36) Stomach Upset clavulanic acid [Augmentin] Allergy (Unknown, Verified 03/26/24 14:36) GI, Difficulty breathing codeine [CODEINE] Allergy (Unknown, Verified 03/26/24 14:36) SENSITIVITY erythromycin base [Erythromycin Base] Allergy (Unknown, Verified 03/26/24 14:36) GI, DIFF BREATHING NSAIDS (Non-Steroidal Anti-Inflamma [NSAIDS (NON-STEROIDAL ANTI-INFLAMMA] Allergy (Unknown, Verified 03/26/24 14:36) GI UPSET Sulfa (Sulfonamide Antibiotics) Allergy (Unknown, Verified 03/26/24 14:36) RASH morphine [MORPHINE] Adverse Reaction (Severe, Verified 03/26/24 14:36) NAUSEA aspirin [Aspirin] Adverse Reaction (Mild, Verified 03/26/24 14:36) STOMACH UPSET melatonin Adverse Reaction (Verified 03/26/24 14:36) Vomiting HPI Comments Details: Paloma is a pleasant middle-aged woman with history of ileostomy. She has high output ostomy leading to dehydration and electrolyte imbalance. Recently she had acute kidney injury due to dehydration. With fluid replacement renal function has returned to baseline. She continues to have fatigue. She has mild anemia as well. She is waiting for reversal of ileostomy to be done in May. She empties the bag on an average of every hour and a half. Therefore she is unable to sleep through the night. [facility] Medical History Postop check Small bowel obstruction Anxiety Irritable bowel syndrome with constipation PVC (premature ventricular contraction) Myocardial infarction Hypertension Barretts esophagus GERD (gastroesophageal reflux disease) Surgical History Ileostomy in place Status post cardiac catheterization H/O dilation and curettage History of exploratory laparotomy (05/11/23) History of esophagogastroduodenoscopy (EGD) Hx of colonoscopy Family History Father Colon cancer Congestive heart failure Paternal Aunt Colon cancer Mother Congestive heart failure Afib Social History Household Members: None Housing: House Do you presently have visiting nurse or other home services: No Alcohol intake: never Patient Tobacco Use Status: Former Tobacco user Tobacco use type: Cigarette Cigarette Packs Per Day: 0.5 Cigarettes Per Day: 10.0 Years Smoked: 30 e-Cigarette/Vaping Use: Never Used Substance Use Type: Marijuana Advance Directives Date on File: 12/29/23 service: No Physical Exam Vital Signs: Last Vital Signs Pulse 102 H 03/26/24 14:34 BP 110/80 03/26/24 14:34 Pulse Ox 98 03/26/24 14:34 Oxygen Delivery Method Room Air 03/26/24 14:34 BMI result Body Mass Index 23.0 Neck Neck: Yes supple Resp Auscultation: clear to auscultation bilaterally Cardio Palpation: no palpable S3 Heart sounds: no rubs GI Palpation (GI): Soft to palpation Auscultation: normal bowel sounds Neuro Motor exam (neuro): no asterixis Results Reviewed Nephrology Results: Hgb 10.8 g/dl (12.0-16.0) L 03/20/24 WBC 7.6 X10*3/uL (4.8-10.8) 03/20/24 Plt Count 183 X10*3/uL (160-400) 03/20/24 Sodium 139 mmol/L (135-145) 03/21/24 Potassium 3.2 mmol/L (3.3-5.1) L 03/21/24 Chloride 106 mmol/L (96-108) 03/21/24 Carbon Dioxide 24 mmol/L (22-29) 03/21/24 BUN 31 mg/dL (9-16) H 03/21/24 Creatinine 0.78 mg/dL (0.5-1.4) 03/21/24 Calcium 8.9 mg/dL (8.4-10.2) 03/21/24 Assessment & Plan Assessment & Plan (1) MARKEI (acute kidney injury): Code(s): N17.9 - Acute kidney failure, unspecified Category: Medical (2) Increased ileostomy output: Code(s): R19.8 - Other specified symptoms and signs involving the digestive system and abdomen; Z93.2 - Ileostomy status Category: Medical Plan Pleasant middle-aged woman with high output ileostomy and status post MARKIE due to dehydration. History of Hypokalemia and hypomagnesemia due to GI losses. Mild anemia I have suggested to increase her fluid intake to maintain intake more than output. First step is to make sure the stool output and once we know the 24 hour output we can match with appropriate intake. If she is unable to maintain oral intake then she may require frequent IV hydration which can be done as an outpatient. Monitor and replace potassium and magnesium. Orders: Orders Complete Blood Count Auto Diff Today N17.9 - Acute kidney failure, unspecified Magnesium Today Z93.3 - Colostomy status Coding Level of Care Code Est Pt Level 4 (03857) Diagnoses MARKIE (acute kidney injury) N17.9 Increased ileostomy output R19.8; Z93.2
== END 2024-03-26 15:02 | disposition home or self-care (01) ==
PROVIDERS: PCP Nurse Practitioner Family; Visit Provider Internal Medicine Hypertension Specialist
DX: N17.9 Acute kidney failure, unspecified (principal); R19.8 Other specified symptoms and signs involving the digestive system and abdomen; Z93.2 Ileostomy status
CPT/HCPCS: 99214

== ENCOUNTER → 2024-03-26 14:31 | Outpatient (BNVA) | payer OTHER, MEDICARE, SELFPAY | PROVIDERS: PCP Nurse Practitioner Family; Visit Provider Internal Medicine Hypertension Specialist | DX: N17.9 Acute kidney failure, unspecified (principal); R19.8 Other specified symptoms and signs involving the digestive system and abdomen; Z93.2 Ileostomy status | CPT/HCPCS: 99212 ==

== ENCOUNTER 2024-03-27 07:51 | Outpatient (REF) | payer MEDICARE, SELFPAY ==
[2024-03-27 08:09] LABS: MANUAL DIFF FLAG NO
[2024-03-27 08:19] LABS: Basophils Absolute Auto 0.1 X10*3/uL (0.0-0.2); Basophils Percent Auto 0.9 % (0-2); Eosinophils Absolute Auto 0.4 X10*3/uL (0.0-0.4); Eosinophils Percent Auto 3.3 % (0-4); Hemoglobin 12.6 g/dl (12.0-16.0); Imm Gran Abs Auto 0.12 X10*3/uL (0.00-0.03); Lymphocytes Absolute Auto 2.1 X10*3/uL (1.2-4.9); Lymphocytes Percent Auto 16.9 % (20-40); Mean Corpuscular HGB Conc 32.3 g/dl (31.0-35.0); Mean Corpuscular Hemoglobin 28.8 pg (27.0-33.0); Mean Corpuscular Volume 89.2 fL (80.0-98.0); Mean Platelet Volume 9.2 fL (9.4-12.3); Monocytes Absolute Auto 1.2 X10*3/uL (0.1-1.2); Monocytes Percent Auto 9.7 % (2-11); Neutrophils Absolute Auto 8.3 x10*3/uL (2.0-8.3); Neutrophils Percent Auto 68.2 % (45-73); Platelet Count 349 X10*3/uL (160-400); Red Blood Count 4.37 X10*6/uL (4.20-5.50); Red Cell Distribution Width 13.9 % (11.0-16.0); White Blood Count 12.2 X10*3/uL (4.8-10.8)
[2024-03-27 09:06] LABS: Magnesium 2.1 mg/dL (1.6-2.6)
[2024-03-27 13:10] LABS: Anion Gap 19 (12-20); Blood Urea Nitrogen 84 mg/dL (9-16); Calcium 10.5 mg/dL (8.4-10.2); Carbon Dioxide 17 mmol/L (22-29); Chloride 98 mmol/L (96-108); Estimated Glomerular Filt Rate 20; Glucose Fasting 107 mg/dL (60-99); Potassium 5.8 mmol/L (3.3-5.1); Sodium 128 mmol/L (135-145)
== END 2024-03-27 07:52 | disposition home or self-care (01) ==
LOC: HO.LAB 07:51
PROVIDERS: Absent Provider Internal Medicine; PCP Nurse Practitioner Family; Visit Provider Internal Medicine Hypertension Specialist
DX: Z13.89 Encounter for screening for other disorder (principal)
CPT/HCPCS: 36415; 80048; 83735; 85025

== ENCOUNTER 2024-03-27 15:10 | Emergency (ER) | payer OTHER, MEDICARE, SELFPAY ==
--- NOTE | 2024-03-27 15:12 | ED_ITS ---
HPI - General Adult General Chief complaint: Recheck/Abnormal Lab/Rx Stated complaint: Ref by nephrology for low sodium Time Seen by Provider: 03/27/24 17:26 Source: patient Mode of arrival: ambulatory Limitations: no limitations History of Present Illness ED Provider: You Blas PA-C HPI narrative: 64 yold female with increased ileostomy output, MARKIE, NSTEMI, sent by her Special Services Supervisor for hyponatremia. Patient states the recent week she has been suffering from COVID and due to increased ileostomy output she has been dehydrated with known low potassium magnesium being treated by [place] area field manager. Repeat labs today showed hyponatremia has a primary care office so she was sent to the ED here today. Patient denies seizures, headache, numbness, tingling, dizziness, nausea, or vomitting. Related Data Home Medications ?Medication ?Instructions ?Recorded ?Confirmed atorvastatin 20 mg tablet 20 mg PO BEDTIME 03/01/23 03/25/24 potassium chloride 10 mEq 10 meq PO BID 10/13/23 03/25/24 capsule,extended release calcium carbonate 600 mg-vitamin 1 tab PO DAILY 11/30/23 03/25/24 D3 5 mcg (200 unit) tablet (Calcium 600 + D(3)) mirtazapine 15 mg tablet 15 mg PO BEDTIME 11/30/23 03/25/24 acetaminophen 325 mg tablet 650 mg PO Q12H PRN Pain 01/07/24 03/25/24 (Tylenol) multivitamin with minerals-folic 1 tab PO DAILY 01/07/24 03/25/24 acid 200 mcg chewable tablet (Multivitamin Gummies) ondansetron HCl 4 mg tablet 4 mg PO Q8H PRN Nausea And Vomiting 01/07/24 03/25/24 carvedilol 3.125 mg tablet 3.125 mg PO BID 03/06/24 03/25/24 carisoprodol 350 mg tablet 350 mg PO BEDTIME 03/19/24 03/25/24 magnesium glycinate 800 mg PO DAILY 03/19/24 03/25/24 Previous Rx's ?Medication ?Instructions ?Recorded esomeprazole magnesium 20 mg 20 mg PO DAILY #30 caps 01/16/24 capsule,delayed release (Nexium) spironolactone 25 mg tablet 12.5 mg PO DAILY #30 tabs 03/21/24 Allergies Allergy/AdvReac Type Severity Reaction Status Date / Time clams Allergy Severe Stomach Verified 03/27/24 15:24 Upset clavulanic acid [Augmentin] Allergy Unknown GI, Verified 03/27/24 15:24 Difficulty breathing codeine [CODEINE] Allergy Unknown SENSITIVIT Verified 03/27/24 15:24 Y erythromycin base Allergy Unknown GI, DIFF Verified 03/27/24 15:24 [Erythromycin Base] BREATHING NSAIDS (Non-Steroidal Allergy Unknown GI UPSET Verified 03/27/24 15:24 Anti-Inflamma [NSAIDS (NON-STEROIDAL ANTI-INFLAMMA] Sulfa (Sulfonamide Allergy Unknown RASH Verified 03/27/24 15:24 Antibiotics) morphine [MORPHINE] AdvReac Severe NAUSEA Verified 03/27/24 15:24 aspirin [Aspirin] AdvReac Mild STOMACH Verified 03/27/24 15:24 UPSET melatonin AdvReac Vomiting Verified 03/27/24 15:24 Review of Systems 2 Review of Systems: low sodium Yes all other systems are reviewed and are negative PMFSH Past Medical History Medical History Postop check Small bowel obstruction Anxiety Irritable bowel syndrome with constipation PVC (premature ventricular contraction) Myocardial infarction Hypertension Barretts esophagus GERD (gastroesophageal reflux disease) Surgical History Ileostomy in place Status post cardiac catheterization H/O dilation and curettage History of exploratory laparotomy (05/11/23) History of esophagogastroduodenoscopy (EGD) Hx of colonoscopy Family History Family History Father Colon cancer Congestive heart failure Paternal Aunt Colon cancer Mother Congestive heart failure Afib Social History Social History Household Members: None Housing: House Do you presently have visiting nurse or other home services: No Alcohol intake: never Patient Tobacco Use Status: Former Tobacco user Tobacco use type: Cigarette Cigarette Packs Per Day: 0.5 Cigarettes Per Day: 10.0 Years Smoked: 30 Smoked in Last 30 Days: No e-Cigarette/Vaping Use: Never Used Substance Use Type: Marijuana Advance Directives: Yes Advance Directives on File: Yes Advance Directives Date on File: 12/29/23 Do you have a plan to hurt others: No Plan service: No Physical Exam ED Vital Signs: Vital Signs - 24 hr 03/27/24 18:47 03/27/24 21:02 03/27/24 23:25 Temperature 97.8 F 98.0 F 98.4 F Pulse Rate 94 88 92 Respiratory Rate 20 17 20 Blood Pressure 132/75 136/77 105/63 Pulse Oximetry 99 97 98 Oxygen Delivery Method Room Air Room Air 03/28/24 00:37 03/28/24 00:40 Temperature 98.3 F 98.3 F Pulse Rate 99 99 Respiratory Rate 16 16 Blood Pressure 124/64 124/64 Pulse Oximetry 99 99 Oxygen Delivery Method Room Air Room Air BMI result Body Mass Index 22.7 Const General: cooperative, healthy appearing, comfortable, no acute distress, well developed, alert and awake Orientation/consciousness: oriented to person, oriented to place, oriented to time and patient oriented x3 HENMT Head: Yes normal to inspection, Yes No palpable skull fracture present, Yes normocephalic, Yes atraumatic and No abrasion Eyes General: appearance normal, both eyes and all related structures Neck Neck: Yes normal visual inspection, Yes full ROM, Yes no lymphadenopathy, Yes no meningeal signs, Yes trachea midline, Yes supple, No anterior neck swelling and No tender Chest Chest palpation & inspection: normal inspection of the chest and normal palpation of entire chest wall Resp Effort & Inspection: normal respiratory effort and able to speak in complete sentences Auscultation: clear to auscultation bilaterally Cardio Jugular venous distension: no JVD Heart sounds: S1 normal heart sound present and S2 normal heart sound present GI Inspection: Yes normal to inspection Palpation (GI): Soft to palpation, not firm, nontender, no guarding and not rigid General: No CVA tenderness and Yes no CVA tenderness Back/Spine/Pelvis Back: no CVA tenderness, No CVA tenderness and No back tenderness Skin General skin exam: no rashes or lesions noted, elasticity normal and turgor normal Neuro General: oriented to person, oriented to place, oriented to time, patient oriented x3, gait normal, tone normal, moves all extremities, Normal light touch and pain sensation, no meningeal signs, no focal motor deficits, CN's II-XI intact bilaterally and normal sensation to monofilament Extrem General: Yes normal to inspection and Yes full ROM Psych Appearance: grossly normal, well kempt and not disheveled Course Course Course Narrative: This is a rapid medical exam performed by Monie Cruz NP: Additional HPI, ROS, PE not included below will be deferred to primary provider. Patient is a 64-year-old female with history of NSTEMI, NSVT, IBS, ileostomy presenting to the ED from Dr. Mcclain's office with report of low sodium on labs drawn this morning. She states she has been taking po potassium for low levels. Has been unable to keep down any drinks with electrolytes. 15:[address] Mcclain via telephone. He reports that patient is hyponatremic due to her high output ileostomy. He recommends 2L of NS and to advise patient to discontinue her PO potassium. He states she may need to return to the ED every few days for IV NS until her ileostomy is reversed in May. Plan: repeat labs Medications Administered Discontinued Medications Generic Name Dose Route Start Last Admin Trade Name Freq PRN Reason Stop Dose Admin Sodium Chloride 1,000 mls @ 999 mls/hr 03/27/24 19:23 03/27/24 22:41 Ns IV 03/27/24 20:23 Infused .Q1H1M STA Infusion Sodium Chloride 1,000 mls @ 999 mls/hr 03/27/24 19:23 03/27/24 22:41 Ns IV 03/27/24 20:23 Infused .Q1H1M STA Infusion Sodium Bicarbonate 50 meq 03/28/24 00:09 03/28/24 00:31 Sodium Bicarbonate 8.4% 50 Meq/50 Ml Syringe IVPUSH 03/28/24 00:10 50 meq ONCE ONE Administration Medical Decision Making Medical Decision Making [facility] Narrative: 64-year-old female sent by area field manager for hyponatremia without any other symptoms. Patient was a hard stick so I have to place ultrasound IV. Patient's kidney function shows a KI. Sodium increased from 128 to 131. Patient informed staff that Dr. Mcclain her area field manager said we should call him 1st before we do any intervention. 7:51pm: Spoke with Dr. Mcclain of Nephrology he was informed of patient's labs, physical exam, and EKG. He recommends patient receiving 2 L of fluid and going home. I informed our repeat chemistry. 12:16am: Patient kidney function improved, but still in MARKIE. Patient's carbon dioxide 14. Sodium bicarb ordered ( REcommended by Dr San). Calcium 7.9 case was presented to hospitalist for admission for MARKIE. Patient refused admission and would like to be discharged. Patient explained risk of leaving against medical advice including , worsening kidney function, dialysis, and others. Patient is still sign out against medical advice. Patient agreeable sodium bicarb and they would like to leave. Patient explained worrisome signs and informed to return to ED immediately. IJ Removed. Differential Diagnosis Differential Diagnoses: The differential diagnosis associated with the presentation includes (Acute kidney injury, dehydration,) Admission/Observation Consideration of admission/observation: Escalation of care including admission/observation considered Consult Healthcare Provider Management of the patient was discussed with: Cable Tower Operator (Dr. Perrin) Lab Data MDM Lab Attestation statement: I reviewed the patient's lab results. 03/27/24 17:53 03/27/24 22:49 Labs: Lab Results 03/27/24 03/27/24 Range/Units 17:53 22:49 WBC 13.5 H (4.8-10.8) X10*3/uL RBC 4.28 (4.20-5.50) X10*6/uL Hgb 12.6 (12.0-16.0) g/dl Hct 38.2 (37.0-47.0) % MCV 89.3 (80.0-98.0) fL MCH 29.4 (27.0-33.0) pg MCHC 33.0 (31.0-35.0) g/dl RDW 13.9 (11.0-16.0) % Plt Count 362 (160-400) X10*3/uL MPV 9.3 L (9.4-12.3) fL Immature Gran % (Auto) 0.7 H (0.0-0.4) % Neut % (Auto) 63.0 (45-73) % Lymph % (Auto) 23.1 (20-40) % Weld % (Auto) 9.6 (2-11) % Eos % (Auto) 2.9 (0-4) % Baso % (Auto) 0.7 (0-2) % Lymph # (Auto) 3.1 (1.2-4.9) X10*3/uL Weld # (Auto) 1.3 H (0.1-1.2) X10*3/uL Eos # (Auto) 0.4 (0.0-0.4) X10*3/uL Baso # (Auto) 0.1 (0.0-0.2) X10*3/uL Abs Immat Gran (auto) 0.10 H (0.00-0.03) X10*3/uL Absolute Neuts (auto) 8.5 H (2.0-8.3) x10*3/uL Absolute Nucleated RBC 0.000 (0.0-0.012) X10*3/uL Nucleated RBC % (auto) 0.0 (0.0-0.2) /100WBC Sodium 131 L 137 (135-145) mmol/L Potassium 5.6 H 4.4 D (3.3-5.1) mmol/L Chloride 101 114 H (96-108) mmol/L Carbon Dioxide 17 L 14 L (22-29) mmol/L Anion Gap 19 13 (12-20) BUN 86 H 75 H (9-16) mg/dL Creatinine 2.29 H 1.45 H (0.5-1.4) mg/dL Estim Creat Clear Calc 19.3 30.5 Estimated GFR 21 36 Random Glucose 100 86 (60-115) mg/dL Osmolality 307 H (281-305) mosm/kg Calcium 10.1 7.9 L D (8.4-10.2) mg/dL Magnesium 2.1 (1.6-2.6) mg/dL Total Bilirubin 0.3 0.2 (0.0-1.0) mg/dL AST 91 H 66 H (5-31) U/L ALT 89 H 64 H (0-31) U/L Alkaline Phosphatase 256 H 190 H (39-117) U/L Total Protein 10.3 H 7.3 (6.5-8.0) g/dL Albumin 4.6 3.3 L (3.5-5.0) g/dL Independent Historian Clinical information obtained from an independent historian. History obtained from or confirmed by: Other (Patient) External Record Review External record reviewed: Other Critical Care Time Critical Care Time Critical Care Time: Yes Total Critical Care Time: 60 Attestation: MARKIE, hyponatremia. Hard stick. IJ placed by Dr. Sanabria. FLuids given. Bicarb given Discharge Plan Discharge Clinical Impression: MARKIE (acute kidney injury) Patient Disposition: Left Against Medical Advice Instructions: Acute Kidney Injury (DC) Additional Instructions: Recommend follow-up with your area field manager. Return to ED immediately for any headache, seizures, chest pain, shortness of breath, weakness, fever, chills, back pain, flank pain, dysuria, hematuria, weakness, dizziness, or any other concerning symptoms. Prescriptions: No Action esomeprazole magnesium [Nexium] 20 mg capsule,delayed release(DR/EC) 20 mg PO DAILY Qty: 30 4RF mirtazapine 15 mg tablet 15 mg PO BEDTIME calcium carbonate-vitamin D3 [Calcium 600 + D(3)] 600 mg-5 mcg (200 unit) Tablet 1 tab PO DAILY ondansetron HCl 4 mg tablet 4 mg PO Q8H PRN (Reason: Nausea And Vomiting) acetaminophen [Tylenol] 325 mg Tablet 650 mg PO Q12H PRN (Reason: Pain) multivit with min-folic acid [Multivitamin Gummies] 200 mcg Tablet,Chewable 1 tab PO DAILY carisoprodol 350 mg tablet 350 mg PO BEDTIME magnesium glycinate 100 mg magnesium capsule 800 mg PO DAILY spironolactone 25 mg Tablet 12.5 mg PO DAILY Qty: 30 0RF Protocol: Hold for SBP< HOLD for SBP < : 90 atorvastatin 20 mg tablet 20 mg PO BEDTIME potassium chloride 10 mEq capsule, extended release 10 meq PO BID carvedilol 3.125 mg tablet 3.125 mg PO BID Referrals: Jeramie Mcclain MD [Physician] - (MARKIE) Stand Alone Forms: Against Medical Advice, Work/School Release Interventions: ED Discharge Assessment Last Done: 03/28/24 00:40 Discharge Date/Time: 03/28/24 00:40 Print Language: Moroccan
[2024-03-27 15:21] VITALS: BP 108/79; PULSE 97; RESP 18; TEMP 36.6; O2SAT 97; BMI 22.7
[2024-03-27 17:58] LABS: MANUAL DIFF FLAG NO
[2024-03-27 18:10] LABS: Basophils Absolute Auto 0.1 X10*3/uL (0.0-0.2); Basophils Percent Auto 0.7 % (0-2); Eosinophils Absolute Auto 0.4 X10*3/uL (0.0-0.4); Eosinophils Percent Auto 2.9 % (0-4); Hematocrit 38.2 % (37.0-47.0); Hemoglobin 12.6 g/dl (12.0-16.0); Imm Gran Pct Auto 0.7 % (0.0-0.4); Lymphocytes Absolute Auto 3.1 X10*3/uL (1.2-4.9); Lymphocytes Percent Auto 23.1 % (20-40); Mean Corpuscular Hemoglobin 29.4 pg (27.0-33.0); Mean Corpuscular Volume 89.3 fL (80.0-98.0); Mean Platelet Volume 9.3 fL (9.4-12.3); Monocytes Absolute Auto 1.3 X10*3/uL (0.1-1.2); Monocytes Percent Auto 9.6 % (2-11); Neutrophils Absolute Auto 8.5 x10*3/uL (2.0-8.3); Platelet Count 362 X10*3/uL (160-400); Red Blood Count 4.28 X10*6/uL (4.20-5.50); Red Cell Distribution Width 13.9 % (11.0-16.0); White Blood Count 13.5 X10*3/uL (4.8-10.8)
[2024-03-27 18:18] LABS: Alanine Aminotransferase 89 U/L (0-31); Albumin Level 4.6 g/dL (3.5-5.0); Alkaline Phosphatase 256 U/L (39-117); Anion Gap 19 (12-20); Aspartate Amino Transferase 91 U/L (5-31); Bilirubin Total 0.3 mg/dL (0.0-1.0); Blood Urea Nitrogen 86 mg/dL (9-16); Calcium 10.1 mg/dL (8.4-10.2); Carbon Dioxide 17 mmol/L (22-29); Chloride 101 mmol/L (96-108); Creatinine Clr Calc Pharmacy 19.3; Estimated Glomerular Filt Rate 21; Glucose Random 100 mg/dL (60-115); Magnesium 2.1 mg/dL (1.6-2.6); Potassium 5.6 mmol/L (3.3-5.1); Sodium 131 mmol/L (135-145); Total Protein 10.3 g/dL (6.5-8.0)
[2024-03-27 18:22] LABS: Osmolality, Serum 307 mosm/kg (281-305)
--- NOTE | 2024-03-27 18:40 | ECG_ITS ---
Test Reason : ABNORMAL LABS Blood Pressure : / mmHG Vent. Rate : 094 BPM Atrial Rate : 094 BPM P-R Int : 146 ms QRS Dur : 062 ms QT Int : 348 ms P-R-T Axes : 038 051 066 degrees QTc Int : 435 ms Normal sinus rhythm Normal ECG When compared with ECG of 19-MAR-2024 09:00, No significant change was found Referred By: You Blas Electronically Signed By:TERELL PATEL
[2024-03-27 18:47] VITALS: BP 132/75; PULSE 94; RESP 20; TEMP 36.6; O2SAT 99
[2024-03-27] MEDS: 0.9 % Sodium Chloride 1,000 ML 999 ML IV ×2 (19:31→19:32)
[2024-03-27 21:02] VITALS: BP 136/77; PULSE 88; RESP 17; TEMP 36.7; O2SAT 97
[2024-03-27 23:16] LABS: Alanine Aminotransferase 64 U/L (0-31); Albumin Level 3.3 g/dL (3.5-5.0); Alkaline Phosphatase 190 U/L (39-117); Anion Gap 13 (12-20); Aspartate Amino Transferase 66 U/L (5-31); Bilirubin Total 0.2 mg/dL (0.0-1.0); Blood Urea Nitrogen 75 mg/dL (9-16); Calcium 7.9 mg/dL (8.4-10.2); Carbon Dioxide 14 mmol/L (22-29); Chloride 114 mmol/L (96-108); Creatinine Clr Calc Pharmacy 30.5; Estimated Glomerular Filt Rate 36; Glucose Random 86 mg/dL (60-115); Potassium 4.4 mmol/L (3.3-5.1); Sodium 137 mmol/L (135-145); Total Protein 7.3 g/dL (6.5-8.0)
[2024-03-27 23:25] VITALS: BP 105/63; PULSE 92; RESP 20; TEMP 36.9; O2SAT 98
--- NOTE | 2024-03-28 00:09 | PC.NURSE ---
PT REPORTS SHE WANTS TO LEAVE AND DOES NOT WANT TO CONTINUE TX AT THIS TIME. PATIENCE TALLEY NOTIFIED AND AT BEDSIDE NOW.
[2024-03-28] MEDS: Sodium Bicarbonate 8.4% 50 MEQ/50 ML SYRINGE IVPUSH (00:31)
[2024-03-28 00:37] VITALS: BP 124/64; PULSE 99; RESP 16; TEMP 36.8; O2SAT 99
[2024-03-28 00:40] VITALS: BP 124/64; PULSE 99; RESP 16; TEMP 36.8; O2SAT 99
--- NOTE | 2024-03-28 01:19 | PC.NURSE ---
Addendum entered by Vijay Thurston 03/28/24 01:21: PT HAD CENTRAL LINE TO R. NECK REMOVED BY PA. NO BLEEDING AT TIME OF D/C, DRESSING APPLIED. Original Note: PT IS AXOX4 REFUSING TO CONTINUE WITH PLAN OF CARE. PT REFUSING TO SIGN AMA FORMS, WITNESSED BY GERRI MORIN AND DIESEL MECHANIC APPRENTICE. PT VERBALIZES UNDERSTANDING D/C EDUCATION, EDUCATED ON RISKS OF LEAVING AND BENEFITS OF STAYING. PT VERBALIZES FINANCIAL ISSUES CAUSING PT TO NOT BE ABLE TO BE HOSPITALIZED AND STATES SHE WILL F/U WITH SUSTAINABILITY PROJECT MANAGER IN AM. PT IS AMBULATORY WITH STEADY GAIT. VSS. TOLERATING PO INTAKE.
== END 2024-03-28 00:40 | disposition left against medical advice (07) ==
PROVIDERS: Physician Assistant; Registered Nurse Emergency; Emergency Provider Internal Medicine; PCP Nurse Practitioner Family
DX: N17.9 Acute kidney failure, unspecified (principal); E87.1 Hypo-osmolality and hyponatremia; I10 Essential (primary) hypertension; Z87.891 Personal history of nicotine dependence; Z93.3 Colostomy status; Z53.29 Procedure and treatment not carried out because of patient's decision for other reasons
CPT/HCPCS: 36415; 36556; 80048; 80053; 83735; 83930; 85025; 93005; 96361; 96374; 99285

== ENCOUNTER → 2024-03-27 18:40 | Outpatient (BNV) | payer MEDICARE, SELFPAY | PROVIDERS: Emergency Provider Internal Medicine; PCP Nurse Practitioner Family; Visit Provider Internal Medicine | DX: R79.89 Other specified abnormal findings of blood chemistry (principal) | CPT/HCPCS: 93010 ==

== ENCOUNTER 2024-04-01 06:51 | Day surgery (SDC) | payer MEDICARE, OTHER, SELFPAY ==
--- NOTE | ~2024-04-01 | IR_ITS ---
CLINICAL HISTORY: Patient requires long-term IV hydration due to high ileostomy outputs PROCEDURES: 1. Real-time ultrasound guided access into the right internal jugular vein after documentation of selective vessel patency, and permanent imaging storing in the patient records. 2. Placement of a 6 Fr, 26 cm tunneled, dual-lumen power injectable Newman CLINICIAN: Chucho Jackson PA-C MEDICATIONS: -Lidocaine 1% 10 ml, SQ. -Additional details, please see nursing flowsheet. Complications: None. Estimated blood loss: <5 ml Specimens: None. Contrast: None. Fluoroscopy time: 0.6 min PROCEDURE NOTE: The procedure, risks, benefits, and alternatives were carefully explained to the patient and written informed consent was obtained. The patient was placed supine on the fluoroscopy table. A timeout was performed. The right neck and chest was prepped and draped in usual sterile fashion. Local anesthesia was administered to the right neck access site with lidocaine. Under ultrasound guidance, the right internal jugular vein was accessed with a 5 fr micropuncture set. A permanent ultrasound picture was saved. A peel-away sheath was advanced over the wire. The catheter was measured and cut to length. Next, subcutaneous lidocaine was administered to the chest. Using blunt dissection, a subcutaneous tunnel was created that connects from the upper chest to the venotomy site. The catheter was pulled through the tunnel. The catheter was advanced through the sheath, which was subsequent peeled away. The catheter was tested, flushed, and sutured to the skin with its tip in the cavoatrial junction. The venotomy site was closed with surgical glue. A dry sterile dressing was applied to the chest and the venotomy site. A permanent chest fluoroscopic image was saved demonstrating the catheter tip in the cavoatrial junction. The patient was stable after the procedure was transferred back to the floor. IR/IR cvc insert central tunnel IMPRESSION: Placement of a tunneled dual-lumen Newman catheter PLAN: -The catheter may be used immediately. This procedure was performed by Chucho Jackson PA-C, and supervised by Dr. Villarreal
--- NOTE | ~2024-04-01 | XR_ITS ---
EXAMINATION: XR CHEST CLINICAL INFORMATION: Weakness. COMPARISON: 03/19/2024 TECHNIQUE: 2 views of the chest were obtained. FINDINGS: The lungs are hyperexpanded. No focal consolidation. No pleural effusion. Cardiac silhouette is within normal limits. XR/XR chest 2V IMPRESSION: No acute abnormality.
[2024-04-01 06:55] VITALS: BP 128/82; PULSE 100; RESP 16; TEMP 36.6; O2SAT 98; BMI 23.4
--- NOTE | 2024-04-01 07:19 | ECG_ITS ---
Test Reason : weakness Blood Pressure : / mmHG Vent. Rate : 079 BPM Atrial Rate : 079 BPM P-R Int : 166 ms QRS Dur : 072 ms QT Int : 376 ms P-R-T Axes : 039 032 045 degrees QTc Int : 431 ms Normal sinus rhythm Normal ECG When compared with ECG of 27-MAR-2024 18:56, No significant change was found Referred By: Dary Escoto Electronically Signed By:Russell Hummel
--- NOTE | 2024-04-01 07:41 | ED.WEAKNESS ---
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 Patient has been evaluated in the ED twice since testing positive for covid. She reports since this time she has has increased output from ostomy leading to dehydration, electrolyte imbalance and MARKIE. Patient was evaluated in the ED on 03/27/24. She was noted to have an MARKIE and after discussion with her bevel mill operator, she was treated with 2 L of IV fluids. She was advised to stay for admission to medicine for continued MARKIE however patient left against medical advice. She returns today with continued weakness. She tells me that she is unable to keep up with her fluid intake. She reports seeing her bevel mill operator on 03/26/2024 and had discussions about port placement. She is awaiting call back from her bevel mill operator regarding this. She denies fever, chills, chest pain, palpitations, SOB, headache, dizziness. Patient reports frustration with multiple attempts at obtaining intravenous access at previous visits. She reports that she ended up requiring central line, stating I'm a tough stick . Patient demanding central line and port placement upon me walking into the room. Related Data Home Medications ?Medication ?Instructions ?Recorded ?Confirmed atorvastatin 20 mg tablet 20 mg PO BEDTIME 03/01/23 03/25/24 potassium chloride 10 mEq 10 meq PO BID 10/13/23 03/25/24 capsule,extended release calcium carbonate 600 mg-vitamin 1 tab PO DAILY 11/30/23 03/25/24 D3 5 mcg (200 unit) tablet (Calcium 600 + D(3)) mirtazapine 15 mg tablet 15 mg PO BEDTIME 11/30/23 03/25/24 acetaminophen 325 mg tablet 650 mg PO Q12H PRN Pain 01/07/24 03/25/24 (Tylenol) multivitamin with minerals-folic 1 tab PO DAILY 01/07/24 03/25/24 acid 200 mcg chewable tablet (Multivitamin Gummies) ondansetron HCl 4 mg tablet 4 mg PO Q8H PRN Nausea And Vomiting 01/07/24 03/25/24 carvedilol 3.125 mg tablet 3.125 mg PO BID 03/06/24 03/25/24 carisoprodol 350 mg tablet 350 mg PO BEDTIME 03/19/24 03/25/24 magnesium glycinate 800 mg PO DAILY 03/19/24 03/25/24 Previous Rx's ?Medication ?Instructions ?Recorded esomeprazole magnesium 20 mg 20 mg PO DAILY #30 caps 01/16/24 capsule,delayed release (Nexium) spironolactone 25 mg tablet 12.5 mg PO DAILY #30 tabs 03/21/24 Allergies Allergy/AdvReac Type Severity Reaction Status Date / Time clams Allergy Severe Stomach Verified 04/01/24 06:58 Upset clavulanic acid [Augmentin] Allergy Unknown GI, Verified 04/01/24 06:58 Difficulty breathing codeine [CODEINE] Allergy Unknown SENSITIVIT Verified 04/01/24 06:58 Y erythromycin base Allergy Unknown GI, DIFF Verified 04/01/24 06:58 [Erythromycin Base] BREATHING NSAIDS (Non-Steroidal Allergy Unknown GI UPSET Verified 04/01/24 06:58 Anti-Inflamma [NSAIDS (NON-STEROIDAL ANTI-INFLAMMA] Sulfa (Sulfonamide Allergy Unknown RASH Verified 04/01/24 06:58 Antibiotics) morphine [MORPHINE] AdvReac Severe NAUSEA Verified 04/01/24 06:58 aspirin [Aspirin] AdvReac Mild STOMACH Verified 04/01/24 06:58 UPSET melatonin AdvReac Vomiting Verified 04/01/24 06:58 Review of Systems Review of Systems: Constitutional: No fever, chills, fatigue, night sweats, weight changes ENT/Mouth: No ear pain, hearing loss, nasal congestion, sinus pain, rhinorrhea, sore throat Eyes: No eye pain, swelling, redness, vision changes, discharge Cardio: No chest pain, palpitations, DONG, orthopnea, peripheral edema Pulm: No SOB, cough, sputum, wheezing, dyspnea, hemoptysis GI: No nausea, vomiting, hematemesis, abdominal pain, diarrhea, constipation, hematochezia, melena : No irregular bleeding, dysuria, frequency, urgency, hesitancy, hematuria, flank pain, urinary flow changes, urinary incontinence or retention MSK: No back pain, neck pain, joint pain, myalgias Skin: No lesions, rashes Neuro: No weakness, numbness, paresthesias, LOC, dizziness, headache, +generalized weakness Psych: No anxiety/panic, depression, SI/HI, AH/VH All other systems reviewed and are negative. [facility] Past Medical History Attestation statement: The following information was validated with the patient. Source: old records reviewed and nursing notes reviewed Medical History Postop check Small bowel obstruction Anxiety Irritable bowel syndrome with constipation PVC (premature ventricular contraction) Myocardial infarction Hypertension Barretts esophagus GERD (gastroesophageal reflux disease) Surgical History Ileostomy in place Status post cardiac catheterization H/O dilation and curettage History of exploratory laparotomy (05/11/23) History of esophagogastroduodenoscopy (EGD) Hx of colonoscopy Family History Family History Father Colon cancer Congestive heart failure Paternal Aunt Colon cancer Mother Congestive heart failure Afib Social History Social History Household Members: None Housing: House Do you presently have visiting nurse or other home services: No Alcohol intake: never Patient Tobacco Use Status: Former Tobacco user Tobacco use type: Cigarette Cigarette Packs Per Day: 0.5 Cigarettes Per Day: 10.0 Years Smoked: 30 Smoked in Last 30 Days: No e-Cigarette/Vaping Use: Never Used Use of substances other than those prescribed or required for medical reasons: No Substance Use Type: Marijuana Advance Directives: Yes Advance Directives on File: Yes Advance Directives Date on File: 12/29/23 Do you have a plan to hurt others: No Plan service: No Physical Exam Vital Signs: Vital Signs: Last Vital Signs Temp 97.0 F 04/01/24 10:06 Pulse 74 04/01/24 10:06 Resp 14 04/01/24 10:06 BP 115/58 L 04/01/24 10:06 Pulse Ox 100 04/01/24 10:06 O2 Del Method Room Air 04/01/24 10:06 BMI result Body Mass Index 23.4 Vital signs stable, afebrile. Const: General: cooperative, healthy appearing, comfortable and no acute distress Orientation/consciousness: patient oriented x3 Limitations: no limitations HEENT: Head: Yes normal to inspection, Yes No palpable skull fracture present, Yes normocephalic and Yes atraumatic Mouth: Normal oral and palatal mucosa present Throat: Yes posterior oropharynx normal Eyes: General: appearance normal, both eyes and all related structures Pupils: Equal, round and reactive pupils present Neck: Neck: Yes normal visual inspection, Yes full ROM, Yes no lymphadenopathy and Yes no JVD Chest: Chest palpation & inspection: normal inspection of the chest and normal palpation of entire chest wall Resp: Effort & Inspection: normal respiratory effort and able to speak in complete sentences Auscultation: clear to auscultation bilaterally Cardio: Rate: regular rate Rhythm: regular rhythm GI: Other: Abdomen soft, nondistended, nontender to palpation, no rebound tenderness or guarding. Intact ileostomy noted to right lower quadrant of abdomen. : General: Yes no CVA tenderness Back/Spine/Pelvis: Back: no CVA tenderness Skin: General skin exam: no rashes or lesions noted Neuro: General: patient oriented x3, gait normal and tone normal Cranial nerves: Yes Equal, round and reactive pupils present Extrem: General: Yes normal to inspection Course Course Course Narrative: 912 -- EKG showing normal sinus rhythm with a rate of 79 beats per minute, QT 376, QTC 431, no acute ischemic changes or ST elevations. Chest x-ray without consolidation or infiltrate to suggest pneumonia. CBC without leukocytosis or left shift. Mildly anemic with H&H 11.7/34.9. Above transfusion threshold. Chemistry showing hyponatremia to 132. Carbon dioxide 17 which appears to be around patient's baseline. BUN elevated to 46 which is improved from 75 on 03/27/2024. Creatinine WNL at 1.34. Transaminitis which appears to be around patient's baseline. AST 77, ALT 78, alk phos 185. Troponin WNL at 3.4. 0950-- My attending Dr. Alexandra was able to obtain US assisted peripheral line in right AC. 1L IVF started. Will continue to monitor. 0956-- Discussed case with bevel mill operator Dr. Mcclain who is recommending arceo central line placement as patient requires frequent fluid resuscitation secondary to high-flow ileostomy. > will reach out to interventional radiology 1021-- Discussed with IR PATIENCE Jackson who tells me they can fit patient in for Arceo Central Line placement today between [id number]. > discussed with patient who is agreeable with this. order placed. > peripheral IV still patent. patient receiving 2L IVF. well appearing. vitals stable. Medications Administered Generic Name Dose Route Start Last Admin Trade Name Freq PRN Reason Stop Dose Admin Sodium Chloride 1,000 mls @ 999 mls/hr 04/01/24 10:45 04/01/24 11:09 Ns IV 04/01/24 11:45 999 mls/hr .Q1H1M ARISTIDES Administration Discontinued Medications Generic Name Dose Route Start Last Admin Trade Name Freq PRN Reason Stop Dose Admin Sodium Chloride 1,000 mls @ 999 mls/hr 04/01/24 10:00 04/01/24 11:09 Ns IV 04/01/24 11:00 Infused .Q1H1M ARISTIDES Infusion Lidocaine HCl 5 ml 04/01/24 09:25 04/01/24 09:50 Lidocaine Hcl 1 % Mpf 5 Ml Vial INFILTRATI 04/01/24 09:26 5 ml ONCE ONE Administration Medical Decision Making Medical Decision Making MDM Narrative: 64 year old female with pmhx significant for NSTEMI (s/p cardiac cath w/o stent placement or CABG), HTN, GERD, kacy's esophagua, HDL, IBD, complicated diverticulitis requiring colostomy, 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 Vital signs stable. Afebrile. She is nontoxic-appearing and in no acute distress. Skin warm, dry, intact. Abdomen soft, nondistended, nontender to palpation, no rebound tenderness or guarding. Intact ileostomy noted to right lower quadrant. Differential diagnosis includes anemia, electrolyte abnormality, dehydration, MARKIE, UTI Plan for basic labs, ekg, cxr, UA, and re-evaluation Differential Diagnosis Differential Diagnoses: The differential diagnosis associated with the presentation includes as above. Admission/Observation Consideration of admission/observation: Escalation of care including admission/observation considered Admission considered on presentation Consult Healthcare Provider Management of the patient was discussed with: Emblem Cutter (Nephrology (Dr. Mcclain), IR (Kevyn MORIN)) Lab Data MDM Lab Attestation statement: I reviewed the patient's lab results. as above. 04/01/24 07:59 04/01/24 07:59 Labs: Lab Results 04/01/24 Range/Units 07:59 WBC 10.1 (4.8-10.8) X10*3/uL RBC 3.92 L (4.20-5.50) X10*6/uL Hgb 11.7 L (12.0-16.0) g/dl Hct 34.9 L (37.0-47.0) % MCV 89.0 (80.0-98.0) fL MCH 29.8 (27.0-33.0) pg MCHC 33.5 (31.0-35.0) g/dl RDW 13.8 (11.0-16.0) % Plt Count 286 (160-400) X10*3/uL MPV 9.0 L (9.4-12.3) fL Immature Gran % (Auto) 0.4 (0.0-0.4) % Neut % (Auto) 69.2 (45-73) % Lymph % (Auto) 17.4 L (20-40) % [place] % (Auto) 8.9 (2-11) % Eos % (Auto) 3.4 (0-4) % Baso % (Auto) 0.7 (0-2) % Lymph # (Auto) 1.8 (1.2-4.9) X10*3/uL [place] # (Auto) 0.9 (0.1-1.2) X10*3/uL Eos # (Auto) 0.3 (0.0-0.4) X10*3/uL Baso # (Auto) 0.1 (0.0-0.2) X10*3/uL Abs Immat Gran (auto) 0.04 H (0.00-0.03) X10*3/uL Absolute Neuts (auto) 7.0 (2.0-8.3) x10*3/uL Absolute Nucleated RBC 0.000 (0.0-0.012) X10*3/uL Nucleated RBC % (auto) 0.0 (0.0-0.2) /100WBC Sodium 132 L (135-145) mmol/L Potassium 3.9 (3.3-5.1) mmol/L Chloride 106 (96-108) mmol/L Carbon Dioxide 17 L (22-29) mmol/L Anion Gap 13 (12-20) BUN 46 H (9-16) mg/dL Creatinine 1.34 (0.5-1.4) mg/dL Estim Creat Clear Calc 33.1 Estimated GFR 40 Random Glucose 102 (60-115) mg/dL Calcium 10.1 D (8.4-10.2) mg/dL Magnesium 1.8 (1.6-2.6) mg/dL Total Bilirubin 0.3 (0.0-1.0) mg/dL AST 77 H (5-31) U/L ALT 78 H (0-31) U/L Alkaline Phosphatase 185 H (39-117) U/L Troponin I High Sens 3.4 (<3.5-17.0) ng/L Total Protein 9.2 H (6.5-8.0) g/dL Albumin 4.1 (3.5-5.0) g/dL Lipase 101 H (8-78) U/L Independent Interpretation I performed an independent interpretation of an: EKG and Plain X-Ray Interpretation: EKG showing NSR with a rate of 79 beats per minute, QT 376, QTC 431, no acute ischemic changes or ST elevations. CXR without consolidation or infiltrate, agree with radiologist's interpretation. Radiology Impression Discussion of test interpretation with radiology: I have reviewed the radiologist's reading. Radiologist Impression: EXAMINATION: XR CHEST CLINICAL INFORMATION: Weakness. COMPARISON: 03/19/2024 TECHNIQUE: 2 views of the chest were obtained. FINDINGS: The lungs are hyperexpanded. No focal consolidation. No pleural effusion. Cardiac silhouette is within normal limits. XR/XR chest 2V IMPRESSION: No acute abnormality. External Record Review External record reviewed: Inpatient record, Office record, Outpatient record, Prior outpatient labs, Prior outpatient radiology, Primary care record and Outside ED record Chronic Conditions Patient?s care impacted by: Other (Diverticulitis requiring high flow ileostomy) Social Determinants Patient?s care significantly limited by Social Determinants of Health including: Other Social Determinant of Health Critical Care Time Critical Care Time Critical Care Time: No Discharge Plan Discharge Clinical Impression: MARKIE (acute kidney injury) Patient Disposition: Still a Patient Prescriptions: No Action esomeprazole magnesium [Nexium] 20 mg capsule,delayed release(DR/EC) 20 mg PO DAILY Qty: 30 4RF mirtazapine 15 mg tablet 15 mg PO BEDTIME calcium carbonate-vitamin D3 [Calcium 600 + D(3)] 600 mg-5 mcg (200 unit) Tablet 1 tab PO DAILY ondansetron HCl 4 mg tablet 4 mg PO Q8H PRN (Reason: Nausea And Vomiting) acetaminophen [Tylenol] 325 mg Tablet 650 mg PO Q12H PRN (Reason: Pain) multivit with min-folic acid [Multivitamin Gummies] 200 mcg Tablet,Chewable 1 tab PO DAILY carisoprodol 350 mg tablet 350 mg PO BEDTIME magnesium glycinate 100 mg magnesium capsule 800 mg PO DAILY spironolactone 25 mg Tablet 12.5 mg PO DAILY Qty: 30 0RF Protocol: Hold for SBP< HOLD for SBP < : 90 atorvastatin 20 mg tablet 20 mg PO BEDTIME potassium chloride 10 mEq capsule, extended release 10 meq PO BID carvedilol 3.125 mg tablet 3.125 mg PO BID Print Language: Urdu
[2024-04-01 08:08] LABS: MANUAL DIFF FLAG NO
[2024-04-01 08:09] LABS: Basophils Absolute Auto 0.1 X10*3/uL (0.0-0.2); Basophils Percent Auto 0.7 % (0-2); Eosinophils Absolute Auto 0.3 X10*3/uL (0.0-0.4); Eosinophils Percent Auto 3.4 % (0-4); Hematocrit 34.9 % (37.0-47.0); Hemoglobin 11.7 g/dl (12.0-16.0); Imm Gran Abs Auto 0.04 X10*3/uL (0.00-0.03); Imm Gran Pct Auto 0.4 % (0.0-0.4); Lymphocytes Absolute Auto 1.8 X10*3/uL (1.2-4.9); Lymphocytes Percent Auto 17.4 % (20-40); Mean Corpuscular HGB Conc 33.5 g/dl (31.0-35.0); Mean Corpuscular Hemoglobin 29.8 pg (27.0-33.0); Monocytes Absolute Auto 0.9 X10*3/uL (0.1-1.2); Monocytes Percent Auto 8.9 % (2-11); Neutrophils Percent Auto 69.2 % (45-73); Platelet Count 286 X10*3/uL (160-400); Red Blood Count 3.92 X10*6/uL (4.20-5.50); Red Cell Distribution Width 13.8 % (11.0-16.0); White Blood Count 10.1 X10*3/uL (4.8-10.8)
[2024-04-01 08:42] LABS: Alanine Aminotransferase 78 U/L (0-31); Albumin Level 4.1 g/dL (3.5-5.0); Alkaline Phosphatase 185 U/L (39-117); Anion Gap 13 (12-20); Aspartate Amino Transferase 77 U/L (5-31); Bilirubin Total 0.3 mg/dL (0.0-1.0); Blood Urea Nitrogen 46 mg/dL (9-16); Calcium 10.1 mg/dL (8.4-10.2); Carbon Dioxide 17 mmol/L (22-29); Chloride 106 mmol/L (96-108); Creatinine Clr Calc Pharmacy 33.1; Estimated Glomerular Filt Rate 40; Glucose Random 102 mg/dL (60-115); Lipase 101 U/L (8-78); Magnesium 1.8 mg/dL (1.6-2.6); Potassium 3.9 mmol/L (3.3-5.1); Sodium 132 mmol/L (135-145); Total Protein 9.2 g/dL (6.5-8.0)
[2024-04-01 08:49] LABS: Troponin-I High Sensitivity 3.4 ng/L (<3.5-17.0)
[2024-04-01] MEDS: 0.9 % Sodium Chloride 1,000 ML 999 ML IV ×2 (09:50→11:09)
[2024-04-01] MEDS: Lidocaine HCl 1 % MPF 5 ML VIAL INFILTRATI (09:50)
[2024-04-01 10:06] VITALS: BP 115/58; PULSE 74; RESP 14; TEMP 36.1; O2SAT 100
--- NOTE | 2024-04-01 11:46 | PC.NURSE ---
report given to IR
[2024-04-01] MEDS: 0.9 % Sodium Chloride 1,000 ML 80 ML IV (12:10)
--- NOTE | 2024-04-01 12:54 | PC.NURSE ---
pt off unit to IR
--- NOTE | 2024-04-01 14:13 | PCN2_ITS ---
Brief Operative Note Date of procedure: 04/01/24 Pre-op diagnosis: Dehydration, needs medical terminologist access for iv hydration Post-op diagnosis: same Procedure: Right IJ 26 cm Newman placed using US and Fluoro. Tip at cavoatrial junction. Ok for use. Anesthesia: local (25 mcg fentanyl) Condition: stable
[2024-04-01 15:00] VITALS: BP 115/58; PULSE 74; RESP 14; TEMP 36.1; O2SAT 100
== END 2024-04-01 11:58 ==
LOC: HO.ED 11:50 → HO.SSS 11:58
PROVIDERS: Physician Assistant Surgical; Emergency Provider Emergency Medicine; PCP Nurse Practitioner Family; Visit Provider Physician Assistant Medical
DX: N17.9 Acute kidney failure, unspecified (principal); E86.0 Dehydration; R53.1 Weakness; K58.1 Irritable bowel syndrome with constipation; I49.3 Ventricular premature depolarization; I51.81 Takotsubo syndrome; Z93.3 Colostomy status; Z79.899 Other long term (current) drug therapy
CPT/HCPCS: 36410; 36415; 36558; 71046; 76937; 80053; 83690; 83735; 84484; 85025; 93005; 96360; 96361; 99285; C1751; C1769; J0690; J1642; J1644; J3010

== ENCOUNTER → 2024-04-01 07:19 | Outpatient (BNV) | payer MEDICARE, SELFPAY | PROVIDERS: Emergency Provider Emergency Medicine; PCP Nurse Practitioner Family; Visit Provider Internal Medicine Cardiovascular Disease | DX: R53.1 Weakness (principal) | CPT/HCPCS: 93010 ==

== ENCOUNTER → 2024-04-01 11:58 | Outpatient (BNV) | payer MEDICARE, OTHER, SELFPAY | PROVIDERS: Emergency Provider Emergency Medicine; PCP Nurse Practitioner Family; Visit Provider Physician Assistant Surgical | DX: R19.8 Other specified symptoms and signs involving the digestive system and abdomen (principal) | CPT/HCPCS: 36558; 76937 ==

== ENCOUNTER 2024-04-08 06:49 | Outpatient (REF) | payer MEDICARE, SELFPAY ==
[2024-04-08 08:08] LABS: Anion Gap 12 (12-20); Blood Urea Nitrogen 56 mg/dL (9-16); Calcium 9.5 mg/dL (8.4-10.2); Carbon Dioxide 16 mmol/L (22-29); Chloride 106 mmol/L (96-108); Estimated Glomerular Filt Rate 35; Glucose Random 120 mg/dL (60-115); Magnesium 1.7 mg/dL (1.6-2.6); Phosphorus 4.6 mg/dL (2.7-4.5); Potassium 4.1 mmol/L (3.3-5.1); Sodium 130 mmol/L (135-145)
== END 2024-04-08 06:50 | disposition home or self-care (01) ==
LOC: HO.LAB 06:49
PROVIDERS: PCP Nurse Practitioner Family; Visit Provider Internal Medicine Hypertension Specialist
DX: N17.9 Acute kidney failure, unspecified (principal)
CPT/HCPCS: 36415; 80048; 83735; 84100

== ENCOUNTER 2024-04-09 06:14 | Emergency (ER) | payer MEDICARE, SELFPAY ==
[2024-04-09 06:18] VITALS: BP 123/80; PULSE 106; RESP 20; TEMP 36.7; O2SAT 97; BMI 23.1
--- NOTE | 2024-04-09 07:11 | ECG_ITS ---
Test Reason : tachycardia Blood Pressure : / mmHG Vent. Rate : 091 BPM Atrial Rate : 091 BPM P-R Int : 156 ms QRS Dur : 072 ms QT Int : 380 ms P-R-T Axes : 027 027 042 degrees QTc Int : 467 ms Normal sinus rhythm Normal ECG When compared with ECG of 01-APR-2024 07:36, No significant change was found Referred By: Yg Alexandra Electronically Signed By:SERGIO ISAACS MD
--- NOTE | 2024-04-09 07:12 | ED_ITS ---
HPI - Weakness General Chief complaint: Weakness Stated complaint: Weakness/acute kidney inj Time Seen by Provider: 04/09/24 07:03 Source: patient Mode of arrival: ambulatory Limitations: no limitations History of Present Illness HPI Narrative: This is a 64 years old patient known to me presented emergency department complaining of generalized weakness, malaise, she has history of ileostomy and history of high output from ileostomy. Denies any fever chills abdominal pain. She also history of non-STEMI MD Complaint: generalized weakness Onset (ago): day(s) (2) Duration: constant Location: generalized Migration: none Severity: moderate Relieving factors: none Exacerbating factors: none Related Data Home Medications ?Medication ?Instructions ?Recorded ?Confirmed atorvastatin 20 mg tablet 20 mg PO BEDTIME 03/01/23 03/25/24 potassium chloride 10 mEq 10 meq PO BID 10/13/23 03/25/24 capsule,extended release calcium carbonate 600 mg-vitamin 1 tab PO DAILY 11/30/23 03/25/24 D3 5 mcg (200 unit) tablet (Calcium 600 + D(3)) mirtazapine 15 mg tablet 15 mg PO BEDTIME 11/30/23 03/25/24 acetaminophen 325 mg tablet 650 mg PO Q12H PRN Pain 01/07/24 03/25/24 (Tylenol) multivitamin with minerals-folic 1 tab PO DAILY 01/07/24 03/25/24 acid 200 mcg chewable tablet (Multivitamin Gummies) ondansetron HCl 4 mg tablet 4 mg PO Q8H PRN Nausea And Vomiting 01/07/24 03/25/24 carvedilol 3.125 mg tablet 3.125 mg PO BID 03/06/24 03/25/24 carisoprodol 350 mg tablet 350 mg PO BEDTIME 03/19/24 03/25/24 magnesium glycinate 800 mg PO DAILY 03/19/24 03/25/24 Previous Rx's ?Medication ?Instructions ?Recorded esomeprazole magnesium 20 mg 20 mg PO DAILY #30 caps 01/16/24 capsule,delayed release (Nexium) spironolactone 25 mg tablet 12.5 mg PO DAILY #30 tabs 03/21/24 heparin lock flush (porcine) 10 10 unit IV QWEEK flush central 04/09/24 unit/mL intravenous solution line 2 months Allergies Allergy/AdvReac Type Severity Reaction Status Date / Time clams Allergy Severe Stomach Verified 04/09/24 06:18 Upset clavulanic acid [Augmentin] Allergy Unknown GI, Verified 04/09/24 06:18 Difficulty breathing codeine [CODEINE] Allergy Unknown SENSITIVIT Verified 04/09/24 06:18 Y erythromycin base Allergy Unknown GI, DIFF Verified 04/09/24 06:18 [Erythromycin Base] BREATHING NSAIDS (Non-Steroidal Allergy Unknown GI UPSET Verified 04/09/24 06:18 Anti-Inflamma [NSAIDS (NON-STEROIDAL ANTI-INFLAMMA] Sulfa (Sulfonamide Allergy Unknown RASH Verified 04/09/24 06:18 Antibiotics) morphine [MORPHINE] AdvReac Severe NAUSEA Verified 04/09/24 06:18 aspirin [Aspirin] AdvReac Mild STOMACH Verified 04/09/24 06:18 UPSET melatonin AdvReac Vomiting Verified 04/09/24 06:18 Review of Systems 2 Constitutional: Constitutional: Reports no additional constitutional complaints ENT: Reports system reviewed and no additional complaints, except as documented Gastrointestinal: Gastrointestinal: Reports no additional gastrointestinal complaints PMFSH Past Medical History Source: unable to obtain Medical History Postop check Small bowel obstruction Anxiety Irritable bowel syndrome with constipation PVC (premature ventricular contraction) Myocardial infarction Hypertension Barretts esophagus GERD (gastroesophageal reflux disease) Surgical History Ileostomy in place Status post cardiac catheterization H/O dilation and curettage History of exploratory laparotomy (05/11/23) History of esophagogastroduodenoscopy (EGD) Hx of colonoscopy Family History Family History Father Colon cancer Congestive heart failure Paternal Aunt Colon cancer Mother Congestive heart failure Afib Social History Social History Household Members: None Housing: House Do you presently have visiting nurse or other home services: No Alcohol intake: never Patient Tobacco Use Status: Former Tobacco user Tobacco use type: Cigarette Cigarette Packs Per Day: 0.5 Cigarettes Per Day: 10.0 Years Smoked: 30 Smoked in Last 30 Days: No e-Cigarette/Vaping Use: Never Used Use of substances other than those prescribed or required for medical reasons: Yes Substance Use Type: Marijuana Substance Use Frequency: Daily Advance Directives: Yes Advance Directives on File: Yes Advance Directives Date on File: 12/29/23 service: No Physical Exam 2 Vital Signs: Vital Signs: Last Vital Signs Temp 98.5 F 04/09/24 15:35 Pulse 79 04/09/24 15:35 Resp 16 04/09/24 15:35 BP 106/64 04/09/24 15:35 Pulse Ox 99 04/09/24 15:35 O2 Del Method Room Air 04/09/24 15:35 BMI result Body Mass Index 23.1 Const: General: cooperative, comfortable and no acute distress Nutritional Appearance: average body habitus Orientation/consciousness: oriented to person and patient oriented x3 Limitations: no limitations HEENT: Head: Yes normal to inspection General nose exam: Normal external nose present Face and sinus: Yes normal facial exam Throat: Yes posterior oropharynx normal Neck: Neck: Yes normal visual inspection Chest: Chest palpation & inspection: normal inspection of the chest Resp: Effort & Inspection: normal respiratory effort Cardio: Jugular venous distension: no JVD Rate: regular rate Rhythm: r egular rhythm GI: Inspection: Yes normal to inspection Palpation (GI): Soft to palpation, not firm, nontender and no guarding Skin: Rashes: no rashes Trauma: no lacerations or abrasions Neuro: General: oriented to person and patient oriented x3 Course Reevaluation(s) Reevaluation #1: Doing much better creatinine down from 1.84 to 0.15 bicarb improved to 20 BUN down to 54 Overall electrolytes much improved the I think at this point she can be discharged home, we are going to get telephonic nurse case manager consult because she has a central access she will need weekly flash, the central access was done during the last visit because very poor IV peripheral access and frequent emergency room visits for IV hydration Time: 14:15 Reevaluation #2: animal rides manager working on her case to arrange possible VNA Time: 14:54 Reevaluation #3: I consulted with telephonic nurse case manager and I spoke with the commanding officer homicide squad Josh, at this time we did not find any agency /vna to flash her catheter home,per Dr Moreno to return to the ED in 1 Week to flash line with heparin,in the interim telephonic nurse case manager will try to find agency/infusion center to flash the line. Time: 15:57 Medications Administered Discontinued Medications Generic Name Dose Route Start Last Admin Trade Name Terri PRN Reason Stop Dose Admin Lactated Ringer's 1,000 mls @ 999 mls/hr 04/09/24 07:15 04/09/24 09:05 Lr IV 04/09/24 08:15 Infused .Q1H1M [facility] Infusion Lactated Ringer's 500 mls @ 999 mls/hr 04/09/24 07:15 04/09/24 10:02 Lr IV 04/09/24 07:45 Infused .Q31M [facility] Infusion Lactated Ringer's 500 mls @ 999 mls/hr 04/09/24 11:23 04/09/24 12:12 Lr IV 04/09/24 11:53 Infused .Q31M ONE Infusion Medical Decision Making Medical Decision Making [facility] Narrative: Patient presented with generalized weakness malaise I output production from the ileostomy we will check labs administer IV fluid reassess Differential Diagnosis Differential Diagnoses: The differential diagnosis associated with the presentation includes Dehydration/MARKIE/electrolytes imbalance Admission/Observation Consideration of admission/observation: Escalation of care including admission/observation considered Lab Data [facility] Lab Attestation statement: I reviewed the patient's lab results. 04/09/24 07:20 04/09/24 12:31 Labs: Lab Results 04/09/24 04/09/24 04/09/24 Range/Units 07:20 10:14 12:31 WBC 8.6 (4.8-10.8) X10*3/uL RBC 4.07 L (4.20-5.50) X10*6/uL Hgb 11.9 L (12.0-16.0) g/dl Hct 35.5 L (37.0-47.0) % MCV 87.2 (80.0-98.0) fL MCH 29.2 (27.0-33.0) pg MCHC 33.5 (31.0-35.0) g/dl RDW 14.2 (11.0-16.0) % Plt Count 248 (160-400) X10*3/uL MPV 8.9 L (9.4-12.3) fL Immature Gran % (Auto) 0.6 H (0.0-0.4) % Neut % (Auto) 66.2 (45-73) % Lymph % (Auto) 17.5 L (20-40) % [place] % (Auto) 11.3 H (2-11) % Eos % (Auto) 3.6 (0-4) % Baso % (Auto) 0.8 (0-2) % Lymph # (Auto) 1.5 (1.2-4.9) X10*3/uL [place] # (Auto) 1.0 (0.1-1.2) X10*3/uL Eos # (Auto) 0.3 (0.0-0.4) X10*3/uL Baso # (Auto) 0.1 (0.0-0.2) X10*3/uL Abs Immat Gran (auto) 0.05 H (0.00-0.03) X10*3/uL Absolute Neuts (auto) 5.7 (2.0-8.3) x10*3/uL Absolute Nucleated RBC 0.000 (0.0-0.012) X10*3/uL Nucleated RBC % (auto) 0.0 (0.0-0.2) /100WBC Sodium 131 L 133 L (135-145) mmol/L Potassium 3.7 3.3 (3.3-5.1) mmol/L Chloride 101 106 (96-108) mmol/L Carbon Dioxide 19 L 20 L (22-29) mmol/L Anion Gap 15 10 L (12-20) BUN 66 H 54 H (9-16) mg/dL Creatinine 1.84 H 1.15 (0.5-1.4) mg/dL Estim Creat Clear Calc 24.1 38.5 Estimated GFR 28 47 Random Glucose 109 81 (60-115) mg/dL Calcium 10.3 H D 9.3 D (8.4-10.2) mg/dL Total Bilirubin 0.3 (0.0-1.0) mg/dL AST 95 H (5-31) U/L ALT 89 H (0-31) U/L Alkaline Phosphatase 218 H (39-117) U/L Total Protein 9.7 H (6.5-8.0) g/dL Albumin 4.3 (3.5-5.0) g/dL Urine Color Yellow Urine Appearance Cloudy Urine pH 5.0 (5.0-9.0) Ur Specific [place] 1.015 (1.005-1.025) Urine Protein Trace (Neg-Trace) mg/dL Urine Glucose (UA) Negative (Negative) mg/dL Urine Ketones Negative (Negative) mg/dL Urine Blood Negative (Negative) Urine Nitrite Negative (Negative) Ur Leukocyte Esterase Moderate (2+) H (Negative) Urine RBC 0-2 (0-2) /HPF Urine WBC 6-10 H (0-5) /HPF Ur Squamous Epith Cells 6-10 (0-2) /HPF Urine Bacteria None Seen (None Seen) Hyaline Casts 11-20 (0-2) /LPF External Record Review External record reviewed: Inpatient record Chronic Conditions ileostomy Discharge Plan Discharge Clinical Impression: Dehydration, MARKIE (acute kidney injury) Patient Disposition: Home, Self-Care Instructions: Dehydration (ED) Additional Instructions: Follow-up with your custom leather products maker, return to emergency room if you are worse Prescriptions: New heparin lock flush (porcine) 10 unit/mL solution 10 unit IV QWEEK 60 Days Rx Instructions: administer after IV drug administration as part of [facility] protocol No Action esomeprazole magnesium [Nexium] 20 mg capsule,delayed release(DR/EC) 20 mg PO DAILY Qty: 30 4RF mirtazapine 15 mg tablet 15 mg PO BEDTIME calcium carbonate-vitamin D3 [Calcium 600 + D(3)] 600 mg-5 mcg (200 unit) Tablet 1 tab PO DAILY ondansetron HCl 4 mg tablet 4 mg PO Q8H PRN (Reason: Nausea And Vomiting) acetaminophen [Tylenol] 325 mg Tablet 650 mg PO Q12H PRN (Reason: Pain) multivit with min-folic acid [Multivitamin Gummies] 200 mcg Tablet,Chewable 1 tab PO DAILY carisoprodol 350 mg tablet 350 mg PO BEDTIME magnesium glycinate 100 mg magnesium capsule 800 mg PO DAILY spironolactone 25 mg Tablet 12.5 mg PO DAILY Qty: 30 0RF Protocol: Hold for SBP< HOLD for SBP < : 90 atorvastatin 20 mg tablet 20 mg PO BEDTIME potassium chloride 10 mEq capsule, extended release 10 meq PO BID carvedilol 3.125 mg tablet 3.125 mg PO BID Referrals: Jeramie Mcclain MD [Physician] - 1 week Stand Alone Forms: Work/School Release Print Language: Mongolian
[2024-04-09 07:23] LABS: MANUAL DIFF FLAG NO
[2024-04-09 07:33] LABS: Basophils Absolute Auto 0.1 X10*3/uL (0.0-0.2); Basophils Percent Auto 0.8 % (0-2); Eosinophils Absolute Auto 0.3 X10*3/uL (0.0-0.4); Eosinophils Percent Auto 3.6 % (0-4); Hematocrit 35.5 % (37.0-47.0); Hemoglobin 11.9 g/dl (12.0-16.0); Imm Gran Abs Auto 0.05 X10*3/uL (0.00-0.03); Imm Gran Pct Auto 0.6 % (0.0-0.4); Lymphocytes Absolute Auto 1.5 X10*3/uL (1.2-4.9); Lymphocytes Percent Auto 17.5 % (20-40); Mean Corpuscular HGB Conc 33.5 g/dl (31.0-35.0); Mean Corpuscular Hemoglobin 29.2 pg (27.0-33.0); Mean Corpuscular Volume 87.2 fL (80.0-98.0); Mean Platelet Volume 8.9 fL (9.4-12.3); Monocytes Percent Auto 11.3 % (2-11); Neutrophils Absolute Auto 5.7 x10*3/uL (2.0-8.3); Neutrophils Percent Auto 66.2 % (45-73); Platelet Count 248 X10*3/uL (160-400); Red Blood Count 4.07 X10*6/uL (4.20-5.50); Red Cell Distribution Width 14.2 % (11.0-16.0); White Blood Count 8.6 X10*3/uL (4.8-10.8)
[2024-04-09 07:44] LABS: Alanine Aminotransferase 89 U/L (0-31); Albumin Level 4.3 g/dL (3.5-5.0); Alkaline Phosphatase 218 U/L (39-117); Anion Gap 15 (12-20); Aspartate Amino Transferase 95 U/L (5-31); Bilirubin Total 0.3 mg/dL (0.0-1.0); Blood Urea Nitrogen 66 mg/dL (9-16); Calcium 10.3 mg/dL (8.4-10.2); Carbon Dioxide 19 mmol/L (22-29); Chloride 101 mmol/L (96-108); Creatinine Clr Calc Pharmacy 24.1; Estimated Glomerular Filt Rate 28; Glucose Random 109 mg/dL (60-115); Potassium 3.7 mmol/L (3.3-5.1); Sodium 131 mmol/L (135-145); Total Protein 9.7 g/dL (6.5-8.0)
[2024-04-09] MEDS: Lactated Ringers 1,000 ML 999 ML IV (07:45)
[2024-04-09] MEDS: Lactated Ringers 500 ML 999 ML IV ×2 (07:45→11:30)
[2024-04-09 10:00] VITALS: BP 112/63; PULSE 79; RESP 17; TEMP 36.8; O2SAT 100
[2024-04-09 10:21] LABS: Appearance Urine Cloudy; Color Urine Yellow; Glucose Urine UA Negative (Negative); Leukocyte Esterase Urine Moderate (2+) (Negative); Nitrite Urine Negative (Negative); Specific Gravity - Urine 1.015 (1.005-1.025); UMIC TRIGGER UACC YES; Urine Blood Negative (Negative); Urine Ketones Negative (Negative); Urine Protein Trace mg/dL (Neg-Trace)
[2024-04-09 10:49] LABS: Bacteria Urine None Seen (None Seen); RBC Urine 0-2 /HPF (0-2); UACC Culture Trigger YES
--- NOTE | 2024-04-09 11:44 | PC.NURSE ---
Patient had arceo line placed in IR last week ordered by ER provider Dr. Alexandra, has been unable to acquire for heparin flushes, PCP/other dr.s will not order per patient as they did not order the line placement. Case management consult placed to facilitate heparin flush/ arceo follow up.
[2024-04-09 12:00] VITALS: BP 94/59; PULSE 72; RESP 16; TEMP 36.8; O2SAT 100
[2024-04-09 12:52] LABS: Anion Gap 10 (12-20); Blood Urea Nitrogen 54 mg/dL (9-16); Calcium 9.3 mg/dL (8.4-10.2); Carbon Dioxide 20 mmol/L (22-29); Chloride 106 mmol/L (96-108); Creatinine Clr Calc Pharmacy 38.5; Estimated Glomerular Filt Rate 47; Glucose Random 81 mg/dL (60-115); Potassium 3.3 mmol/L (3.3-5.1); Sodium 133 mmol/L (135-145)
[2024-04-09 14:00] VITALS: BP 100/69; PULSE 78; RESP 16; TEMP 36.8; O2SAT 98
--- NOTE | 2024-04-09 14:12 | MHC.CM.PN ---
Addendum entered by [facility] 04/09/24 15:53: Received phone call from [facility], she states they can accept pt and will run her insurance benefits and then get back to us. Addendum entered by [facility] 04/09/24 15:04: Per Marge from [facility] suggestion, referral placed to [facility], awaiting response. Call received from PCP office nurse Selena, she states that Dr. Hillman is not in today but that she will check with her tomorrow to confirm if she can sign VNA orders and manage this case. Per [facility], the pt will need an infusion company in order to accept this case. Addendum entered by [facility] 04/09/24 14:39: This CM placed call to [facility] an explained the situation, they said they do not deal with Newman catheters, and will not be able to assist. Addendum entered by [facility] 04/09/24 14:39: Call received form Carmelita from [facility], she can't get authorization and wont be able to assist with the case. Original Note: Order received for CM consult due to pt needing help managing her Newman line. Newman line was placed on 04/01, pt discharged without VNA or home infusion services. Pt now unable to get IV heparin flushes. This CM met with pt to discuss, she states she is a very hard stick and needs frequent labs due to MARKIE. Per pt Dr. Mcclain recommended placing the Newman line due to needing frequent labs and IV fluids. This CM placed referral to [facility] to see if they can assist with managing pts line. [facility] wiling to accept but need to know which provider will manage the case. Per pt, her PCP Nessa Hillman is unwilling to manage this. This CM reached out to Dr. Mcclain, awaiting return response, however per pt they are on vacation. CM Director notified of situation, and reached out to covering MD Dr. Jackson, who is not willing to manage the case. This CM placed a call to pts PCP Nessa Hillman, PCP hospital chief executive officer will send a message to confirm if she is able to follow pt with the VNA orders, awaiting return response. Referral placed to [facility], this CM spoke to [facility] liaison Marge, per Marge she will assist with setting this up and will come in within the hour to teach the pt. Per ED MD, pt is medically cleared for discharge.
--- NOTE | 2024-04-09 14:37 | MHC.EDTECH ---
This tech checked pt vital signs, call beyer within reach.
[2024-04-09 15:35] VITALS: BP 106/64; PULSE 79; RESP 16; TEMP 36.9; O2SAT 99
[2024-04-09 16:09] VITALS: BP 106/64; PULSE 79; RESP 16; TEMP 36.9; O2SAT 99
--- NOTE | 2024-04-09 19:25 | MHC.CM.ED ---
Josh Arauz is aware of situation, as if Samantha [place]. Received call for [facility]. They did not obtain auth and cannot provide services for this patient. CM asked why. Apparently, the heparin flushes are not covered by the insurance without a medication to be infused. Josh and Samantha ibarra. Received confirmation from Josh that he spoke with Dr. Quan about this patient. His office will reach out to this patient regarding colostomy reversal. Per Josh, heparin flush is weekly. Per Josh, CM no longer needs to make arrangements for the care of this patient's Newman catheter. [facility] aware.
--- NOTE | 2024-04-11 13:11 | MHC.CM.PN ---
This CM received a call today while covering the ER. The patient had concerns regarding flushes for her Newman. The patient is scheduled for Lab draw via Newman in the ER Monday. Depending on lab results IV fluids may be ordered and infused. The PA was informed of patients concerns. The PA spoke with the patient regarding the details of her appointment on Monday. Per PA the patient was satisfied with the explanation of the plan of care. CM director was notified of the outcome.
== END 2024-04-09 16:09 | disposition home or self-care (01) ==
PROVIDERS: Emergency Provider Emergency Medicine; PCP Nurse Practitioner Family
DX: E86.0 Dehydration (principal); N17.9 Acute kidney failure, unspecified; R53.1 Weakness; I25.2 Old myocardial infarction; I10 Essential (primary) hypertension; Z79.899 Other long term (current) drug therapy
CPT/HCPCS: 36415; 80048; 80053; 81001; 85025; 87086; 93005; 96360; 96361; 99284; 99285; J7120

== ENCOUNTER → 2024-04-09 07:11 | Outpatient (BNV) | payer MEDICARE, SELFPAY | PROVIDERS: Emergency Provider Emergency Medicine; PCP Nurse Practitioner Family; Visit Provider Internal Medicine Cardiovascular Disease | DX: R00.0 Tachycardia, unspecified (principal) | CPT/HCPCS: 93010 ==

== ENCOUNTER 2024-04-15 06:31 | Emergency (ER) | payer MEDICARE, SELFPAY ==
[2024-04-15 06:40] VITALS: BP 113/72; PULSE 84; RESP 18; TEMP 36.6; O2SAT 98; BMI 24.6
--- NOTE | 2024-04-15 06:50 | ED_ITS ---
HPI - Recheck/Abnormal Lab/Rx General Chief Complaint: Recheck/Abnormal Lab/Rx Stated Complaint: Weakness due to MARKIE Time Seen by Provider: 04/15/24 06:49 Source: patient Mode of arrival: ambulatory Limitations: no limitations History of Present Illness ED Provider: Dr. 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 Patient states tested positive for COVID 03/19/2024. Since that time she has had increased output through her ileostomy and states that she has to change her ileostomy bag every 1-2 hours. Patient had a Newman catheter placed by Interventional Radiology on 04/01/2024. The patient has a treatment plan to come to the emergency department weekly to check her electrolytes, kidney function and to receive IV hydration. Patient states she was scheduled to have her ileostomy reversed by Dr. Quan. Patient states she does have generalized weakness otherwise has no specific complaints except for nausea without vomiting. She denied fever, chills, chest pain, shortness of breath, dyspnea on exertion. Related Data Home Medications ?Medication ?Instructions ?Recorded ?Confirmed atorvastatin 20 mg tablet 20 mg PO BEDTIME 03/01/23 03/25/24 potassium chloride 10 mEq 10 meq PO BID 10/13/23 03/25/24 capsule,extended release calcium carbonate 600 mg-vitamin 1 tab PO DAILY 11/30/23 03/25/24 D3 5 mcg (200 unit) tablet (Calcium 600 + D(3)) mirtazapine 15 mg tablet 15 mg PO BEDTIME 11/30/23 03/25/24 acetaminophen 325 mg tablet 650 mg PO Q12H PRN Pain 05/05/24 07/22/24 (Tylenol) multivitamin with minerals-folic 1 tab PO DAILY 01/07/24 03/25/24 acid 200 mcg chewable tablet (Multivitamin Gummies) ondansetron HCl 4 mg tablet 4 mg PO Q8H PRN Nausea And Vomiting 01/07/24 03/25/24 carvedilol 3.125 mg tablet 3.125 mg PO BID 03/06/24 03/25/24 carisoprodol 350 mg tablet 350 mg PO BEDTIME 03/19/24 03/25/24 magnesium glycinate 800 mg PO DAILY 03/19/24 03/25/24 Previous Rx's ?Medication ?Instructions ?Recorded esomeprazole magnesium 20 mg 20 mg PO DAILY #30 caps 01/16/24 capsule,delayed release (Nexium) spironolactone 25 mg tablet 12.5 mg PO DAILY #30 tabs 03/21/24 heparin lock flush (porcine) 10 10 unit IV QWEEK flush central 04/09/24 unit/mL intravenous solution line 2 months Allergies Allergy/AdvReac Type Severity Reaction Status Date / Time clams Allergy Severe Stomach Verified 04/15/24 06:43 Upset clavulanic acid [Augmentin] Allergy Unknown GI, Verified 04/15/24 06:43 Difficulty breathing codeine [CODEINE] Allergy Unknown SENSITIVIT Verified 04/15/24 06:43 Y erythromycin base Allergy Unknown GI, DIFF Verified 04/15/24 06:43 [Erythromycin Base] BREATHING NSAIDS (Non-Steroidal Allergy Unknown GI UPSET Verified 04/15/24 06:43 Anti-Inflamma [NSAIDS (NON-STEROIDAL ANTI-INFLAMMA] Sulfa (Sulfonamide Allergy Unknown RASH Verified 04/15/24 06:43 Antibiotics) morphine [MORPHINE] AdvReac Severe NAUSEA Verified 04/15/24 06:43 aspirin [Aspirin] AdvReac Mild STOMACH Verified 04/15/24 06:43 UPSET melatonin AdvReac Vomiting Verified 04/15/24 06:43 Review of Systems 2 Review of Systems: Yes all other systems are reviewed and are negative PMFSH Past Medical History Medical History Postop check Small bowel obstruction Anxiety Irritable bowel syndrome with constipation PVC (premature ventricular contraction) Myocardial infarction Hypertension Barretts esophagus GERD (gastroesophageal reflux disease) Surgical History Ileostomy in place Status post cardiac catheterization H/O dilation and curettage History of exploratory laparotomy (05/11/23) History of esophagogastroduodenoscopy (EGD) Hx of colonoscopy Family History Family History Father Colon cancer Congestive heart failure Paternal Aunt Colon cancer Mother Congestive heart failure Afib Social History Social History Household Members: None Housing: House Do you presently have visiting nurse or other home services: No Alcohol intake: never Patient Tobacco Use Status: Former Tobacco user Tobacco use type: Cigarette Cigarette Packs Per Day: 0.5 Cigarettes Per Day: 10.0 Years Smoked: 30 Smoked in Last 30 Days: No e-Cigarette/Vaping Use: Never Used Use of substances other than those prescribed or required for medical reasons: No Substance Use Type: Marijuana Advance Directives: Yes Advance Directives on File: Yes Advance Directives Date on File: 12/29/23 Do you have a plan to hurt others: No Plan service: No Physical Exam 2 Vital Signs: Vital Signs: Last Vital Signs Temp 97.8 F 04/15/24 08:00 Pulse 69 04/15/24 08:00 Resp 16 04/15/24 08:00 BP 95/59 L 04/15/24 08:00 Pulse Ox 99 04/15/24 08:00 O2 Del Method Room Air 04/15/24 08:00 BMI result Body Mass Index 24.6 Vital signs were normal Exam: General: Awake, alert in no distress Head: Normocephalic, atraumatic EENT: PERRL, Lids normal, sclera normal, conjunctiva normal, nose normal , ears normal, throat without erythema or exudates Neck: Supple, no adenopathy Lung: breath sounds symmetric, no wheezing, rales or rhonchi Chest: symmetric movement, nontender. Right Newman catheter, dressing in place, no significant erythema or tenderness noted around the dressing Heart: regular rate and rhythm, normal S1, S2 no murmurs or rubs Abdomen: soft, non-tender, nondistended, normal bowel sounds. Right over ileostomy with ileostomy bag containing loose brown stool with no blood in the ileostomy bag Back: no vertebral tenderness, no CVAT Neuro: Awake, alert, oriented, normal speech, cranial nerves appear intact Psych: Pleasant, cooperative Medications Administered Discontinued Medications Generic Name Dose Route Start Last Admin Trade Name Terri PRN Reason Stop Dose Admin Heparin Sodium (Porcine) 500 0 unit 04/15/24 07:13 04/15/24 07:29 unit/ Sodium Chloride 5 ml IVFLUSH 04/15/24 07:14 5 unit ONCE ONE Administration Lactated Ringer's 1,000 mls @ 999 mls/hr 04/15/24 07:15 04/15/24 09:51 Lr IV 04/15/24 08:15 Infused .Q1H1M ARISTIDES Infusion Lactated Ringer's 1,000 mls @ 999 mls/hr 04/15/24 07:15 04/15/24 09:51 Lr IV 04/15/24 08:15 Infused .Q1H1M ARISTIDES Infusion Ondansetron HCl 4 mg 04/15/24 07:02 04/15/24 07:32 Ondansetron Hcl 4 Mg/2 Ml Vial IVPUSH 04/15/24 07:03 4 mg ONCE ONE Administration Medical Decision Making Medical Decision Making MDM Narrative: 64-year-old female, with a history significant for NSTEMI (status post cardiac cath, no stent placement or CABG), hypertension, GERD, Menon's esophagus, hyperlipidemia, IBS, complicated diverticulitis requiring colostomy, s/p Tye's procedure for 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 Patient's review of systems was significant for nausea with no vomiting and weakness. Vital signs were normal exam was unremarkable. Differential diagnosis: ?Includes but is not limited to acute kidney injury, electrolyte abnormalities, dehydration, volume depletion Following evaluation was ordered: CMP Patient was initially treated with the following: Lactated Ringer's x2 L, Zofran 4 mg IV, heparin flush 5000 units after blood draw from Newman catheter Course: 09:55 My interpretation patient's laboratory evaluation is as follows: BUN was elevated 47 with a creatinine of 1.30 with a GFR of 41. This is consistent with her baseline. CO2 was low at 18 but her anion gap was normal which is reassuring. LFTs were normal. The patient completed her 2 L of lactated Ringer's in his feeling well. The patient will be discharged home. Admission/Observation Consideration of admission/observation: Escalation of care including admission/observation considered Lab Data 04/15/24 07:10 Labs: Lab Results 04/15/24 Range/Units 07:10 Sodium 135 (135-145) mmol/L Potassium 4.3 D (3.3-5.1) mmol/L Chloride 110 H (96-108) mmol/L Carbon Dioxide 18 L (22-29) mmol/L Anion Gap 11 L (12-20) BUN 47 H (9-16) mg/dL Creatinine 1.30 (0.5-1.4) mg/dL Estim Creat Clear Calc 37.1 Estimated GFR 41 Random Glucose 106 (60-115) mg/dL Calcium 9.5 (8.4-10.2) mg/dL Total Bilirubin 0.2 (0.0-1.0) mg/dL AST 69 H (5-31) U/L ALT 66 H (0-31) U/L Alkaline Phosphatase 198 H (39-117) U/L Total Protein 8.5 H (6.5-8.0) g/dL Albumin 3.8 (3.5-5.0) g/dL External Record Review External record reviewed: Inpatient record Chronic Conditions Patient?s care impacted by: Other (High output syndrome 3 ileostomy) Discharge Plan Discharge Clinical Impression: Increased ileostomy output Patient Disposition: Home, Self-Care Additional Instructions: Continue medications as prescribed by your providers Continue to increase your fluid intake to try to match the output from your ileostomy. At your next visit, if you are feeling well, you may not need IV fluid in you may only need your basic metabolic panel checked. This can be determined by the provider that sees you at your next ED visit. Please return to the emergency department if your symptoms get worse or if you develop any symptoms that are concerning to you. Prescriptions: No Action esomeprazole magnesium [Nexium] 20 mg capsule,delayed release(DR/EC) 20 mg PO DAILY Qty: 30 4RF mirtazapine 15 mg tablet 15 mg PO BEDTIME calcium carbonate-vitamin D3 [Calcium 600 + D(3)] 600 mg-5 mcg (200 unit) Tablet 1 tab PO DAILY ondansetron HCl 4 mg tablet 4 mg PO Q8H PRN (Reason: Nausea And Vomiting) acetaminophen [Tylenol] 325 mg Tablet 650 mg PO Q12H PRN (Reason: Pain) multivit with min-folic acid [Multivitamin Gummies] 200 mcg Tablet,Chewable 1 tab PO DAILY carisoprodol 350 mg tablet 350 mg PO BEDTIME magnesium glycinate 100 mg magnesium capsule 800 mg PO DAILY spironolactone 25 mg Tablet 12.5 mg PO DAILY Qty: 30 0RF Protocol: Hold for SBP< HOLD for SBP < : 90 heparin lock flush (porcine) 10 unit/mL solution 10 unit IV QWEEK 60 Days Rx Instructions: administer after IV drug administration as part of [facility] protocol atorvastatin 20 mg tablet 20 mg PO BEDTIME potassium chloride 10 mEq capsule, extended release 10 meq PO BID carvedilol 3.125 mg tablet 3.125 mg PO BID Print Language: Faroese
[2024-04-15 07:02] VITALS: BP 113/72; PULSE 84; RESP 18; TEMP 36.6; O2SAT 98
[2024-04-15] MEDS: Lactated Ringers 1,000 ML 999 ML IV ×2 (07:32)
[2024-04-15] MEDS: ondansetron HCL 4 MG/2 ML VIAL IVPUSH (07:32)
[2024-04-15 07:45] LABS: Alanine Aminotransferase 66 U/L (0-31); Albumin Level 3.8 g/dL (3.5-5.0); Alkaline Phosphatase 198 U/L (39-117); Anion Gap 11 (12-20); Aspartate Amino Transferase 69 U/L (5-31); Bilirubin Total 0.2 mg/dL (0.0-1.0); Blood Urea Nitrogen 47 mg/dL (9-16); Calcium 9.5 mg/dL (8.4-10.2); Carbon Dioxide 18 mmol/L (22-29); Chloride 110 mmol/L (96-108); Creatinine Clr Calc Pharmacy 37.1; Estimated Glomerular Filt Rate 41; Glucose Random 106 mg/dL (60-115); Potassium 4.3 mmol/L (3.3-5.1); Sodium 135 mmol/L (135-145); Total Protein 8.5 g/dL (6.5-8.0)
[2024-04-15 08:00] VITALS: BP 95/59; PULSE 69; RESP 16; TEMP 36.6; O2SAT 99
--- NOTE | 2024-04-15 08:09 | MHC.EDTECH ---
This tech went to introduce herself to pt, pt resting, call beyer within reach.
--- NOTE | 2024-04-15 08:31 | MHC.EDTECH ---
Pt vital signs checked, pt resting, call beyer within reach.
[2024-04-15 10:10] VITALS: BP 95/59; PULSE 69; RESP 16; TEMP 36.6; O2SAT 99
== END 2024-04-15 10:12 | disposition home or self-care (01) ==
PROVIDERS: Emergency Provider Emergency Medicine Emergency Medical Services; PCP Nurse Practitioner Family
DX: R79.89 Other specified abnormal findings of blood chemistry (principal); R53.1 Weakness; R11.0 Nausea; Z79.899 Other long term (current) drug therapy; Z87.891 Personal history of nicotine dependence
CPT/HCPCS: 36415; 80053; 96361; 96374; 99284; J1642; J2405; J7120

== ENCOUNTER → 2024-04-16 07:38 | Outpatient (REF) | payer MEDICARE, SELFPAY ==
--- NOTE | 2024-04-16 07:41 | CA_ITS ---
Transthoracic Echocardiogram Patient (Last, First, Middle): Kia Phelps, Gender: Female Date of : 1960 Age: 64 Procedure Date: 04/16/2024 Procedure Type: Transthoracic Echocardiogram Location: OP Height: 157.48 cm Weight: 57.15 kg BSA: 1.57 m2 Heart Rate: bpm BP: 104 / 70 mmHg Agent: TO Referring MD: Lupillo Sinclair MD Symptoms: I51.81 - Takotsubo syndrome Study Quality: Adequate ECG Rhythm: Sinus Conclusions: - The left ventricular systolic function is normal. The visually estimated ejection fraction is between 50-55%. - The mid inferior and mid inferoseptal segments are hypokinetic. - No obvious valvular pathology seen on this study. Findings Left Ventricle Normal left ventricular cavity size. There is normal left ventricular wall thickness. The left ventricular systolic function is normal. The visually estimated ejection fraction is between 50-55%. Evidence suggests grade I (mild) diastolic dysfunction. Moderate focal hypertrophy of the basal septum. LV peak GLS -18.8%. Wall Motion Rest Echo Findings The mid inferior and mid inferoseptal segments are hypokinetic. Right Ventricle Normal right ventricular cavity size and systolic function. Atria Both atria are normal in size. Aortic Valve There is a normal trileaflet aortic valve. There is no aortic valve stenosis. There is no aortic valve regurgitation. Mitral Valve The mitral valve appears normal. There is no mitral valve regurgitation. There is no mitral valve stenosis. Pulmonic Valve The pulmonic valve is likely normal. Tricuspid Valve Normal tricuspid valve structure. There is mild tricuspid valve regurgitation. There is no evidence of pulmonary hypertension. Great Vessels The asc aorta is normal in size. Venous The inferior vena cava is normal in size and collapses greater than 50% with inspiration. Pericardium/Pleural There is no evidence of pericardial effusion. Prior Study Comparison Changes noted compared to prior study dated: 05/15/2023. Improved LVEF and wall motion. Recommendations, Care & Conclusions No obvious valvular pathology seen on this study. Measurements 2D Linear Measurements IVSd: 0.92 0.6-0.9/0.6-1.0 cm LVIDd: 4.58 3.9-5.3/4.2-5.9 cm LVIDd Index: 2.92 2.4-3.2/2.2-3.1 cm/m2 LVIDs: 3.28 2.0-3.6 cm LVPWd: 0.75 0.7-1.1 cm LA Diam: 2.70 2.7-3.8/3.0-4.0 cm LAIDs Index: 1.72 1.5-2.3 cm/m2 LV Mass: 154.24 67-162/88-224 g LV Mass Index: 98.24 43-95/49-115 g/m2 LVOT Diam: 2.00 3.0+(-)1.3 cm 2D Systolic Function EF 4C: 57.90 >55% EF 2C: 59.80 >55% EF BiP: 57.80 >55% Mitral Valve MV Pk E: 0.38 MV PK A: 0.73 MV Decel Time: 198.00 E/A: 0.50 E'Lateral: 4.46 E'Medial: 3.81 E/E' Med: 10.10 E/E' Lat: 8.60 PHT: 58.00 MVA PHT: 3.79 Decel [place]: 1.94 Aortic Valve AoV Pk Lan: 1.06 AoV Mn Lan: 0.72 AoV VTI: 0.20 AoV Pk Grad: 4.00 Aov Mn Grad: 2.00 MIGUELANGEL Cont.VTI: 2.93 LVOT LVOT Pk Lan: 1.06 LVOT Mn Lan: 0.64 LVOT VTI: 0.18 LVOT Pk Grad: 4.00 LVOT Mn Grad: 2.00 LVOT Diam: 2.00 LVOT Area: 3.14 Diastolic Function MV Pk E: 0.38 MV Pk A: 0.73 E/A: 0.50 E'Medial: 3.81 E/E' Med: 10.10 E' Laterial: 4.46 E/E' Lat: 8.60 Right Ventricle TAPSE (mm): 18.60 TVS' Lan: 11.70 Tricuspid Valve TR Pk Lan: 2.10 TR Pk Grad: 18.00 RA Press: 3.00 RVSP: 21.00 Great Vessels Aorta Sinus of Valsalva: 3.32 2.0-3.[address] [place]: 2.94 1.7-3.4 cm Ao Asc: 3.50 2.1-3.4 cm Updated in Other Vendor System with Status of Final Lupillo Sinclair MD electronically signed on 04/18/2024 12:36:27 PM with status of Final
== END ==
LOC: HO.CARD 07:38
PROVIDERS: PCP Nurse Practitioner Family; Visit Provider Internal Medicine
DX: I51.81 Takotsubo syndrome (principal)
CPT/HCPCS: 93306; 93356

== ENCOUNTER → 2024-04-16 07:41 | Outpatient (BNV) | payer MEDICARE, SELFPAY | PROVIDERS: PCP Nurse Practitioner Family; Visit Provider Internal Medicine | DX: I42.2 Other hypertrophic cardiomyopathy (principal); I51.81 Takotsubo syndrome; I36.1 Nonrheumatic tricuspid (valve) insufficiency | CPT/HCPCS: 93306; 93356 ==

== ENCOUNTER 2024-04-22 06:31 | Emergency (ER) | payer MEDICARE, SELFPAY ==
[2024-04-22 06:39] VITALS: BP 115/69; PULSE 73; RESP 16; TEMP 36.4; O2SAT 99; BMI 24.4
--- NOTE | 2024-04-22 06:54 | ED.GENADULT ---
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 Sees Dr. Mcclain, is scheduled for ostomy reversal with Dr. Quan on 05/23. Has been coming to the ED for IV fluid hydration and electrolyte replacement as needed. Case also discussed on 04/[address] Alexandra with [facility], and patient to return weekly for heparin flushes as [facility]NA unable to be arranged for this. Today denies weakness, fatigue, abdominal pain or any other acute complaints. Related Data Home Medications ?Medication ?Instructions ?Recorded ?Confirmed atorvastatin 20 mg tablet 20 mg PO BEDTIME 03/01/23 03/25/24 potassium chloride 10 mEq 10 meq PO BID 10/13/23 03/25/24 capsule,extended release calcium carbonate 600 mg-vitamin 1 tab PO DAILY 11/30/23 03/25/24 D3 5 mcg (200 unit) tablet (Calcium 600 + D(3)) mirtazapine 15 mg tablet 15 mg PO BEDTIME 11/30/23 03/25/24 acetaminophen 325 mg tablet 650 mg PO Q12H PRN Pain 01/07/24 03/25/24 (Tylenol) multivitamin with minerals-folic 1 tab PO DAILY 01/07/24 03/25/24 acid 200 mcg chewable tablet (Multivitamin Gummies) ondansetron HCl 4 mg tablet 4 mg PO Q8H PRN Nausea And Vomiting 01/07/24 03/25/24 carvedilol 3.125 mg tablet 3.125 mg PO BID 03/06/24 03/25/24 carisoprodol 350 mg tablet 350 mg PO BEDTIME 03/19/24 03/25/24 magnesium glycinate 800 mg PO DAILY 03/19/24 03/25/24 Previous Rx's ?Medication ?Instructions ?Recorded esomeprazole magnesium 20 mg 20 mg PO DAILY #30 caps 01/16/24 capsule,delayed release (Nexium) spironolactone 25 mg tablet 12.5 mg PO DAILY #30 tabs 03/21/24 heparin lock flush (porcine) 10 10 unit IV QWEEK flush central 04/09/24 unit/mL intravenous solution line 2 months Allergies Allergy/AdvReac Type Severity Reaction Status Date / Time clams Allergy Severe Stomach Verified 04/22/24 06:43 Upset clavulanic acid [Augmentin] Allergy Unknown GI, Verified 04/22/24 06:43 Difficulty breathing codeine [CODEINE] Allergy Unknown SENSITIVIT Verified 04/22/24 06:43 Y erythromycin base Allergy Unknown GI, DIFF Verified 04/22/24 06:43 [Erythromycin Base] BREATHING NSAIDS (Non-Steroidal Allergy Unknown GI UPSET Verified 04/22/24 06:43 Anti-Inflamma [NSAIDS (NON-STEROIDAL ANTI-INFLAMMA] Sulfa (Sulfonamide Allergy Unknown RASH Verified 04/22/24 06:43 Antibiotics) morphine [MORPHINE] AdvReac Severe NAUSEA Verified 04/22/24 06:43 aspirin [Aspirin] AdvReac Mild STOMACH Verified 04/22/24 06:43 UPSET melatonin AdvReac Vomiting Verified 04/22/24 06:43 PMFSH Past Medical History Medical History Postop check Small bowel obstruction Anxiety Irritable bowel syndrome with constipation PVC (premature ventricular contraction) Myocardial infarction Hypertension Barretts esophagus GERD (gastroesophageal reflux disease) Surgical History Ileostomy in place Status post cardiac catheterization H/O dilation and curettage History of exploratory laparotomy (05/11/23) History of esophagogastroduodenoscopy (EGD) Hx of colonoscopy Family History Family History Father Colon cancer Congestive heart failure Paternal Aunt Colon cancer Mother Congestive heart failure Afib Social History Social History Household Members: None Housing: House Do you presently have visiting nurse or other home services: No Alcohol intake: never Patient Tobacco Use Status: Former Tobacco user Tobacco use type: Cigarette Cigarette Packs Per Day: 0.5 Cigarettes Per Day: 10.0 Years Smoked: 30 Smoked in Last 30 Days: No e-Cigarette/Vaping Use: Never Used Use of substances other than those prescribed or required for medical reasons: Yes Substance Use Type: Marijuana Advance Directives: Yes Advance Directives on File: Yes Advance Directives Date on File: 12/29/23 Do you have a plan to hurt others: No Plan service: No Physical Exam ED Vital Signs: Vital Signs - 24 hr 04/22/24 06:39 04/22/24 08:00 Temperature 97.6 F 97.9 F Pulse Rate 73 67 Respiratory Rate 16 16 Blood Pressure 115/69 105/61 Pulse Oximetry 99 98 Oxygen Delivery Method Room Air Room Air BMI result Body Mass Index 24.4 Medications Administered Generic Name Dose Route Start Last Admin Trade Name Freq PRN Reason Stop Dose Admin Lactated Ringer's 1,000 mls @ 999 mls/hr 04/22/24 08:15 04/22/24 08:18 Lr IV 04/22/24 09:15 999 mls/hr .Q1H1M ARISTIDES Administration Medical Decision Making Medical Decision Making MDM Narrative: Patient is a 64-year-old female with history of NSTEMI (s/p cardiac cath w/o stent placement or CABG), HTN, GERD, kacy's esophagua, HDL, IBD, complicated diverticulitis requiring colostomy, 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 On exam patient is awake, A+Ox3, VS WNL, afebrile, normal neurological exam without focal deficits, physical exam findings as above. Given reported symptoms and physical exam findings, initial differential includes dehydration, electrolyte abnormality, MARKIE, anemia. Labs notable for drop in H&H, still above transfusion threshold, BUN of 41 with continuously improving creatinine, improving transaminitis. She denies any blood or dark stool output. Results discussed with patient and through shared decision making, given that she is improving and currently asymptomatic, will infuse 1L of LR today. Instructed patient to follow up with PCP and customs house broker, return for any new or worsening symptoms. Patient verbalized understanding of and agreement with plan. Differential Diagnosis Differential Diagnoses: The differential diagnosis associated with the presentation includes As per [facility] Admission/Observation Consideration of admission/observation: Escalation of care including admission/observation considered Patient would have been admitted to the hospital had their work up had any findings where hospital admission was appropriate and their clinical presentation warranted hospital admission. Lab Data [facility] Lab Attestation statement: I reviewed the patient's lab results. As per [facility] 04/22/24 07:11 04/22/24 07:11 Labs: Lab Results 04/22/24 Range/Units 07:11 WBC 7.6 (4.8-10.8) X10*3/uL RBC 3.32 L (4.20-5.50) X10*6/uL Hgb 9.9 L (12.0-16.0) g/dl Hct 31.1 L (37.0-47.0) % MCV 93.7 (80.0-98.0) fL MCH 29.8 (27.0-33.0) pg MCHC 31.8 (31.0-35.0) g/dl RDW 14.3 (11.0-16.0) % Plt Count 198 (160-400) X10*3/uL MPV 8.7 L (9.4-12.3) fL Immature Gran % (Auto) 0.4 (0.0-0.4) % Neut % (Auto) 58.7 (45-73) % Lymph % (Auto) 25.9 (20-40) % [place] % (Auto) 9.7 (2-11) % Eos % (Auto) 4.5 H (0-4) % Baso % (Auto) 0.8 (0-2) % Lymph # (Auto) 2.0 (1.2-4.9) X10*3/uL [place] # (Auto) 0.7 (0.1-1.2) X10*3/uL Eos # (Auto) 0.3 (0.0-0.4) X10*3/uL Baso # (Auto) 0.1 (0.0-0.2) X10*3/uL Abs Immat Gran (auto) 0.03 (0.00-0.03) X10*3/uL Absolute Neuts (auto) 4.4 (2.0-8.3) x10*3/uL Absolute Nucleated RBC 0.000 (0.0-0.012) X10*3/uL Nucleated RBC % (auto) 0.0 (0.0-0.2) /100WBC Sodium 137 (135-145) mmol/L Potassium 3.9 (3.3-5.1) mmol/L Chloride 112 H (96-108) mmol/L Carbon Dioxide 17 L (22-29) mmol/L Anion Gap 12 (12-20) BUN 41 H (9-16) mg/dL Creatinine 1.13 (0.5-1.4) mg/dL Estim Creat Clear Calc 42.5 Estimated GFR 48 Random Glucose 98 (60-115) mg/dL Calcium 9.1 (8.4-10.2) mg/dL Magnesium 1.8 (1.6-2.6) mg/dL Total Bilirubin 0.2 (0.0-1.0) mg/dL AST 61 H (5-31) U/L ALT 52 H (0-31) U/L Alkaline Phosphatase 177 H (39-117) U/L Total Protein 7.8 (6.5-8.0) g/dL Albumin 3.5 (3.5-5.0) g/dL External Record Review External record reviewed: Inpatient record, Office record and Outpatient record Discharge Plan Discharge Clinical Impression: Increased ileostomy output Patient Disposition: Home, Self-Care Additional Instructions: Follow up with your primary care provider and customs house broker. Continue to try to increase your fluid intake due to your high output ileostomy. Return to the emergency department with new or worsening symptoms. Prescriptions: No Action esomeprazole magnesium [Nexium] 20 mg capsule,delayed release(DR/EC) 20 mg PO DAILY Qty: 30 4RF mirtazapine 15 mg tablet 15 mg PO BEDTIME calcium carbonate-vitamin D3 [Calcium 600 + D(3)] 600 mg-5 mcg (200 unit) Tablet 1 tab PO DAILY ondansetron HCl 4 mg tablet 4 mg PO Q8H PRN (Reason: Nausea And Vomiting) acetaminophen [Tylenol] 325 mg Tablet 650 mg PO Q12H PRN (Reason: Pain) multivit with min-folic acid [Multivitamin Gummies] 200 mcg Tablet,Chewable 1 tab PO DAILY carisoprodol 350 mg tablet 350 mg PO BEDTIME magnesium glycinate 100 mg magnesium capsule 800 mg PO DAILY spironolactone 25 mg Tablet 12.5 mg PO DAILY Qty: 30 0RF Protocol: Hold for SBP< HOLD for SBP < : 90 heparin lock flush (porcine) 10 unit/mL solution 10 unit IV QWEEK 60 Days Rx Instructions: administer after IV drug administration as part of [facility] protocol atorvastatin 20 mg tablet 20 mg PO BEDTIME potassium chloride 10 mEq capsule, extended release 10 meq PO BID carvedilol 3.125 mg tablet 3.125 mg PO BID Referrals: Jeramie Mcclain MD [Physician] - Print Language: Uruguayan
[2024-04-22 07:16] LABS: Basophils Absolute Auto 0.1 X10*3/uL (0.0-0.2); Basophils Percent Auto 0.8 % (0-2); Eosinophils Absolute Auto 0.3 X10*3/uL (0.0-0.4); Eosinophils Percent Auto 4.5 % (0-4); Hematocrit 31.1 % (37.0-47.0); Hemoglobin 9.9 g/dl (12.0-16.0); Imm Gran Abs Auto 0.03 X10*3/uL (0.00-0.03); Imm Gran Pct Auto 0.4 % (0.0-0.4); Lymphocytes Percent Auto 25.9 % (20-40); MANUAL DIFF FLAG NO; Mean Corpuscular HGB Conc 31.8 g/dl (31.0-35.0); Mean Corpuscular Hemoglobin 29.8 pg (27.0-33.0); Mean Corpuscular Volume 93.7 fL (80.0-98.0); Mean Platelet Volume 8.7 fL (9.4-12.3); Monocytes Absolute Auto 0.7 X10*3/uL (0.1-1.2); Monocytes Percent Auto 9.7 % (2-11); Neutrophils Absolute Auto 4.4 x10*3/uL (2.0-8.3); Neutrophils Percent Auto 58.7 % (45-73); Platelet Count 198 X10*3/uL (160-400); Red Blood Count 3.32 X10*6/uL (4.20-5.50); Red Cell Distribution Width 14.3 % (11.0-16.0); White Blood Count 7.6 X10*3/uL (4.8-10.8)
--- NOTE | 2024-04-22 07:24 | PC.NURSE ---
Pt presents to ED today for lab work. Pt has Newman line placed. Labs drawn from Newman line and flushed with NS. Pt reports she changed her biopatch and dressing yesterday. DSG appears CDI. Pt reports feeling some weakness but improved overall. Awaiting lab results.
[2024-04-22 07:34] LABS: Alanine Aminotransferase 52 U/L (0-31); Albumin Level 3.5 g/dL (3.5-5.0); Alkaline Phosphatase 177 U/L (39-117); Anion Gap 12 (12-20); Aspartate Amino Transferase 61 U/L (5-31); Bilirubin Total 0.2 mg/dL (0.0-1.0); Blood Urea Nitrogen 41 mg/dL (9-16); Calcium 9.1 mg/dL (8.4-10.2); Carbon Dioxide 17 mmol/L (22-29); Chloride 112 mmol/L (96-108); Creatinine Clr Calc Pharmacy 42.5; Estimated Glomerular Filt Rate 48; Glucose Random 98 mg/dL (60-115); Magnesium 1.8 mg/dL (1.6-2.6); Potassium 3.9 mmol/L (3.3-5.1); Sodium 137 mmol/L (135-145); Total Protein 7.8 g/dL (6.5-8.0)
[2024-04-22 08:00] VITALS: BP 105/61; PULSE 67; RESP 16; TEMP 36.6; O2SAT 98
[2024-04-22] MEDS: Lactated Ringers 1,000 ML 999 ML IV (08:18)
[2024-04-22 09:28] VITALS: BP 105/68; PULSE 81; RESP 16; TEMP 36.6; O2SAT 100
== END 2024-04-22 09:29 | disposition home or self-care (01) ==
PROVIDERS: Registered Nurse Emergency; Emergency Provider Emergency Medicine; PCP Nurse Practitioner Family
DX: K94.19 Other complications of enterostomy (principal); Y84.8 Other medical procedures as the cause of abnormal reaction of the patient, or of later complication, without mention of misadventure at the time of the procedure; Y73.8 Miscellaneous gastroenterology and urology devices associated with adverse incidents, not elsewhere classified; Z93.2 Ileostomy status; Y92.9 Unspecified place or not applicable; N17.9 Acute kidney failure, unspecified; Z95.1 Presence of aortocoronary bypass graft; Z87.891 Personal history of nicotine dependence; Z79.02 Long term (current) use of antithrombotics/antiplatelets; Z79.899 Other long term (current) drug therapy; Z79.01 Long term (current) use of anticoagulants; R19.8 Other specified symptoms and signs involving the digestive system and abdomen
CPT/HCPCS: 36415; 80053; 83735; 85025; 96360; 99284; J1642; J7120

== ENCOUNTER 2024-04-25 14:13 | Outpatient (AMB) | payer MEDICARE, SELFPAY ==
[2024-04-25 14:26] VITALS: BP 118/72; PULSE 76; O2SAT 100; BMI 24.9
--- NOTE | 2024-04-25 14:26 | HO.NEPHOV_ITS ---
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 Required: No Accompanied by: Self / Same As Patient Allergies clams Allergy (Severe, Verified 04/25/24 14:28) Stomach Upset clavulanic acid [Augmentin] Allergy (Unknown, Verified 04/25/24 14:28) GI, Difficulty breathing codeine [CODEINE] Allergy (Unknown, Verified 04/25/24 14:28) SENSITIVITY erythromycin base [Erythromycin Base] Allergy (Unknown, Verified 04/25/24 14:28) GI, DIFF BREATHING NSAIDS (Non-Steroidal Anti-Inflamma [NSAIDS (NON-STEROIDAL ANTI-INFLAMMA] Allergy (Unknown, Verified 04/25/24 14:28) GI UPSET Sulfa (Sulfonamide Antibiotics) Allergy (Unknown, Verified 04/25/24 14:28) RASH morphine [MORPHINE] Adverse Reaction (Severe, Verified 04/25/24 14:28) NAUSEA aspirin [Aspirin] Adverse Reaction (Mild, Verified 04/25/24 14:28) STOMACH UPSET melatonin Adverse Reaction (Verified 04/25/24 14:28) Vomiting HPI Comments Details: Paloma is a pleasant middle-aged woman with history of ileostomy. She has high output ostomy leading to dehydration and electrolyte imbalance. Recently she had acute kidney injury due to dehydration. With fluid replacement renal function has returned to baseline. She continues to have fatigue. She has mild anemia as well. She is waiting for reversal of ileostomy to be done in May. 04/25/2024. He has been catheter has been inserted. She is having the lab drawn every Monday and followed by IV fluids. She is tolerating very well. Serum creatinine has come down to 1.3. Serum electrolytes normal as of [address] [facility] Medical History Postop check Small bowel obstruction Anxiety Irritable bowel syndrome with constipation PVC (premature ventricular contraction) Myocardial infarction Hypertension Barretts esophagus GERD (gastroesophageal reflux disease) Surgical History Ileostomy in place Status post cardiac catheterization H/O dilation and curettage History of exploratory laparotomy (05/11/23) History of esophagogastroduodenoscopy (EGD) Hx of colonoscopy Family History Father Colon cancer Congestive heart failure Paternal Aunt Colon cancer Mother Congestive heart failure Afib Social History Household Members: None Housing: House Do you presently have visiting nurse or other home services: No Alcohol intake: never Patient Tobacco Use Status: Former Tobacco user Tobacco use type: Cigarette Cigarette Packs Per Day: 0.5 Cigarettes Per Day: 10.0 Years Smoked: 30 e-Cigarette/Vaping Use: Never Used Substance Use Type: Marijuana Advance Directives Date on File: 12/29/23 service: No Physical Exam Vital Signs: Last Vital Signs Pulse 76 04/25/24 14:26 BP 118/72 04/25/24 14:26 Pulse Ox 100 04/25/24 14:26 Oxygen Delivery Method Room Air 04/25/24 14:26 BMI result Body Mass Index 24.9 Const General: comfortable and no acute distress Orientation/consciousness: patient oriented x3 HEENT Other: Unremarkable Head: Yes normal to inspection Neck Neck: Yes normal visual inspection Chest Chest palpation & inspection: normal inspection of the chest Resp Auscultation: clear to auscultation bilaterally Cardio Palpation: normal PMI Heart sounds: S1 normal heart sound present, S2 normal heart sound present, no gallops, no murmurs and no rubs GI Palpation (GI): Soft to palpation Back/Spine/Pelvis Other: unremarkable Skin General skin exam: no rashes or lesions noted Neuro General: patient oriented x3 Extrem General: Yes normal to inspection Psych Mental Status: mental status grossly normal Results Reviewed Nephrology Results: Hgb 9.9 g/dl (12.0-16.0) L 04/22/24 WBC 7.6 X10*3/uL (4.8-10.8) 04/22/24 Plt Count 198 X10*3/uL (160-400) 04/22/24 Sodium 137 mmol/L (135-145) 04/22/24 Potassium 3.9 mmol/L (3.3-5.1) 04/22/24 Chloride 112 mmol/L (96-108) H 04/22/24 Carbon Dioxide 17 mmol/L (22-29) L 04/22/24 BUN 41 mg/dL (9-16) H 04/22/24 Creatinine 1.13 mg/dL (0.5-1.4) 04/22/24 Calcium 9.1 mg/dL (8.4-10.2) 04/22/24 Phosphorus 4.6 mg/dL (2.7-4.5) H 04/08/24 Urine Protein Trace mg/dL (Neg-Trace) 04/09/24 Assessment & Plan Assessment & Plan (1) MARKIE (acute kidney injury): Code(s): N17.9 - Acute kidney failure, unspecified Category: Medical (2) Increased ileostomy output: Code(s): R19.8 - Other specified symptoms and signs involving the digestive system and abdomen; Z93.2 - Ileostomy status Category: Medical Plan Pleasant middle-aged woman with high output ileostomy and status post MARKIE due to dehydration. History of Hypokalemia and hypomagnesemia due to GI losses. Mild anemia I have suggested to increase her fluid intake to maintain intake more than output. Continue with monitoring labs every Monday followed by IV hydration. Await reversal of ostomy on May 21. Coding Level of Care Code Est Pt Level 3 (60958) Diagnoses MARKIE (acute kidney injury) N17.9 Increased ileostomy output R19.8; Z93.2
== END 2024-04-25 14:41 | disposition home or self-care (01) ==
PROVIDERS: PCP Nurse Practitioner Family; Visit Provider Internal Medicine Hypertension Specialist
DX: N17.9 Acute kidney failure, unspecified (principal); R19.8 Other specified symptoms and signs involving the digestive system and abdomen; Z93.2 Ileostomy status
CPT/HCPCS: 99213

== ENCOUNTER → 2024-04-25 14:13 | Outpatient (BNVA) | payer MEDICARE, SELFPAY | PROVIDERS: PCP Nurse Practitioner Family; Visit Provider Internal Medicine Hypertension Specialist | DX: N17.9 Acute kidney failure, unspecified (principal); R19.8 Other specified symptoms and signs involving the digestive system and abdomen; Z93.2 Ileostomy status | CPT/HCPCS: 99212 ==

== ENCOUNTER 2024-04-29 06:26 | Emergency (ER) | payer MEDICARE, SELFPAY ==
[2024-04-29 06:48] VITALS: BP 126/68; PULSE 72; RESP 18; TEMP 36.4; O2SAT 98; BMI 24.7
--- NOTE | 2024-04-29 08:43 | ED_ITS ---
HPI - General Adult General Chief complaint: General Medical Stated complaint: MARKIE Fluids Blood Work Time Seen by Provider: 04/29/24 08:54 History of Present Illness ED Provider: Gaudecnio OJEDA narrative: The patient is a 64-year-old woman who has an ileostomy which is apparently very high output. This has led to chronic kidney insufficiency. About 4 weeks ago Newman catheter was placed to facilitate management of blood draws and IV fluids as the patient is difficult IV access. Apparently there was an understanding that the patient is to come to the emergency room every Monday for a check of her renal function and possible IV fluids. The patient says that her ileostomy continues to be high output. She denies other symptoms Related Data Home Medications ?Medication ?Instructions ?Recorded ?Confirmed atorvastatin 20 mg tablet 20 mg PO BEDTIME 03/01/23 03/25/24 calcium carbonate 600 mg-vitamin 1 tab PO DAILY 11/30/23 03/25/24 D3 5 mcg (200 unit) tablet (Calcium 600 + D(3)) mirtazapine 15 mg tablet 15 mg PO BEDTIME 11/30/23 03/25/24 acetaminophen 325 mg tablet 650 mg PO Q12H PRN Pain 01/07/24 03/25/24 (Tylenol) multivitamin with minerals-folic 1 tab PO DAILY 01/07/24 03/25/24 acid 200 mcg chewable tablet (Multivitamin Gummies) ondansetron HCl 4 mg tablet 4 mg PO Q8H PRN Nausea And Vomiting 01/07/24 03/25/24 carisoprodol 350 mg tablet 350 mg PO BEDTIME 03/19/24 03/25/24 magnesium glycinate 800 mg PO DAILY 03/19/24 03/25/24 Previous Rx's ?Medication ?Instructions ?Recorded esomeprazole magnesium 20 mg 20 mg PO DAILY #30 caps 01/16/24 capsule,delayed release (Nexium) heparin lock flush (porcine) 10 10 unit IV QWEEK flush central 04/09/24 unit/mL intravenous solution line 2 months Allergies Allergy/AdvReac Type Severity Reaction Status Date / Time clams Allergy Severe Stomach Verified 04/29/24 06:50 Upset clavulanic acid [Augmentin] Allergy Unknown GI, Verified 04/29/24 06:50 Difficulty breathing codeine [CODEINE] Allergy Unknown SENSITIVIT Verified 04/29/24 06:50 Y erythromycin base Allergy Unknown GI, DIFF Verified 04/29/24 06:50 [Erythromycin Base] BREATHING NSAIDS (Non-Steroidal Allergy Unknown GI UPSET Verified 04/29/24 06:50 Anti-Inflamma [NSAIDS (NON-STEROIDAL ANTI-INFLAMMA] Sulfa (Sulfonamide Allergy Unknown RASH Verified 04/29/24 06:50 Antibiotics) morphine [MORPHINE] AdvReac Severe NAUSEA Verified 04/29/24 06:50 aspirin [Aspirin] AdvReac Mild STOMACH Verified 04/29/24 06:50 UPSET melatonin AdvReac Vomiting Verified 04/29/24 06:50 Review of Systems 2 Review of Systems: Yes all other systems are reviewed and are negative [facility] Past Medical History Medical History Postop check Small bowel obstruction Anxiety Irritable bowel syndrome with constipation PVC (premature ventricular contraction) Myocardial infarction Hypertension Barretts esophagus GERD (gastroesophageal reflux disease) Surgical History Ileostomy in place Status post cardiac catheterization H/O dilation and curettage History of exploratory laparotomy (05/11/23) History of esophagogastroduodenoscopy (EGD) Hx of colonoscopy Family History Family History Father Colon cancer Congestive heart failure Paternal Aunt Colon cancer Mother Congestive heart failure Afib Social History Social History Household Members: None Housing: House Do you presently have visiting nurse or other home services: No Alcohol intake: never Patient Tobacco Use Status: Former Tobacco user Tobacco use type: Cigarette Cigarette Packs Per Day: 0.5 Cigarettes Per Day: 10.0 Years Smoked: 30 e-Cigarette/Vaping Use: Never Used Substance Use Type: Marijuana Advance Directives: Yes Advance Directives on File: Yes Advance Directives Date on File: 12/29/23 Do you have a plan to hurt others: No Plan service: No Physical Exam ED Vital Signs: Vital Signs - 24 hr 04/29/24 06:48 Temperature 97.6 F Pulse Rate 72 Respiratory Rate 18 Blood Pressure 126/68 Pulse Oximetry 98 Oxygen Delivery Method Room Air BMI result Body Mass Index 24.7 Const Other: The patient is awake and alert. She is well-groomed. She does not appear ill or in distress [facility] Other: Mucous membranes moist Eyes Other: Pupils are round equal, conjunctivae clear Resp Effort & Inspection: normal respiratory effort Auscultation: clear to auscultation bilaterally Skin Other: Skin is dry and unremarkable Neuro Other: The patient is awake and alert with a normal mental status. Cranial nerves are grossly intact. She moves her extremities normally and seems grossly neurologically intact. Medications Administered Discontinued Medications Generic Name Dose Route Start Last Admin Trade Name Terri PRN Reason Stop Dose Admin Heparin Sodium (Porcine) 500 0 unit 04/29/24 09:55 04/29/24 10:46 unit/ Sodium Chloride 5 ml IVFLUSH 04/29/24 09:56 500 unit ONCE ONE Administration Medical Decision Making Medical Decision Making [facility] Narrative: The patient is a 64-year-old woman who has an ileostomy which is apparently a high output ileostomy. The patient says that the ostomy continues to be high output. She has been coming to the emergency room on a weekly space for lab testing and possible IV fluids. The patient gets her labs drawn offer Newman catheter. This was done. There has been a long wait and the patient said she not stay after the blood draw. She was therefore discharged after the blood draw. Her basic metabolic panel came back later. This was unremarkable aside from a bicarb of 14. I called the patient and explained that her renal function is better than it has been recently but she seems to have an unusually low bicarb. She had told me in the emergency room that she has been feeling well. When I spoke to her on the phone afterwards she confirmed that she was still feeling very well. I advised her to contact her turbogenerator operator to discuss the significance of this bicarb of 14. If she feels worse she should return to the emergency room. Lab Data 04/29/24 10:41 Labs: Lab Results 04/29/24 Range/Units 10:41 Sodium 136 (135-145) mmol/L Potassium 3.6 (3.3-5.1) mmol/L Chloride 114 H (96-108) mmol/L Carbon Dioxide 14 L (22-29) mmol/L Anion Gap 12 (12-20) BUN 29 H (9-16) mg/dL Creatinine 0.80 (0.5-1.4) mg/dL Estim Creat Clear Calc 60.4 Estimated GFR > 60 Random Glucose 94 (60-115) mg/dL Calcium 9.2 (8.4-10.2) mg/dL Discharge Plan Discharge Clinical Impression: High output ileostomy Patient Disposition: Home, Self-Care Additional Instructions: I will call you at concerning findings on your blood test today. Return to the emergency room if you feel unwell. Prescriptions: No Action esomeprazole magnesium [Nexium] 20 mg capsule,delayed release(DR/EC) 20 mg PO DAILY Qty: 30 4RF mirtazapine 15 mg tablet 15 mg PO BEDTIME calcium carbonate-vitamin D3 [Calcium 600 + D(3)] 600 mg-5 mcg (200 unit) Tablet 1 tab PO DAILY ondansetron HCl 4 mg tablet 4 mg PO Q8H PRN (Reason: Nausea And Vomiting) acetaminophen [Tylenol] 325 mg Tablet 650 mg PO Q12H PRN (Reason: Pain) multivit with min-folic acid [Multivitamin Gummies] 200 mcg Tablet,Chewable 1 tab PO DAILY carisoprodol 350 mg tablet 350 mg PO BEDTIME magnesium glycinate 100 mg magnesium capsule 800 mg PO DAILY heparin lock flush (porcine) 10 unit/mL solution 10 unit IV QWEEK 60 Days Rx Instructions: administer after IV drug administration as part of [facility] protocol atorvastatin 20 mg tablet 20 mg PO BEDTIME Referrals: Jeramie Mcclain MD [Physician] - Nessa Hillman NP [Primary Care Provider] - Jack Quan MD [Physician] - Stand Alone Forms: Work/School Release Discharge Date/Time: 04/29/24 10:53 Print Language: Wolof
--- NOTE | 2024-04-29 10:18 | PC.NURSE ---
Unable to draw labs from arceo. flushes well but to return, unable to pull back waste. pt states that hasn't been an issue thus far. additional RNs to assess
--- NOTE | 2024-04-29 10:41 | PC.NURSE ---
finally able to draw labs from adis laying supine right side lying.
[2024-04-29 11:03] LABS: Anion Gap 12 (12-20); Blood Urea Nitrogen 29 mg/dL (9-16); Calcium 9.2 mg/dL (8.4-10.2); Carbon Dioxide 14 mmol/L (22-29); Chloride 114 mmol/L (96-108); Creatinine Clr Calc Pharmacy 60.4; Estimated Glomerular Filt Rate > 60; Glucose Random 94 mg/dL (60-115); Potassium 3.6 mmol/L (3.3-5.1); Sodium 136 mmol/L (135-145)
== END 2024-04-29 10:53 | disposition home or self-care (01) ==
PROVIDERS: Emergency Provider Emergency Medicine; PCP Nurse Practitioner Family
DX: K94.13 Enterostomy malfunction (principal); Z79.899 Other long term (current) drug therapy
CPT/HCPCS: 36415; 80048; 99282; 99283; J1642

== ENCOUNTER 2024-05-07 10:17 | Outpatient (REF) | payer MEDICARE, SELFPAY ==
--- NOTE | ~2024-05-07 | FL_ITS ---
EXAMINATION: XR GASTROGRAFIN ENEMA CLINICAL INFORMATION: Status post low anterior resection and diverting ileostomy. Evaluate rectosigmoid anastomosis prior to ileostomy reversal. COMPARISON: CT scan December 2023 TECHNIQUE: A rectal tube was placed. Dilute Gastroview was administered through the rectal tube and multiple cine loops and spot images were obtained. Postevacuation films were then obtained. FINDINGS: After placement of a rectal tube, Gastrografin was administered through the rectal tube. Contrast distends the rectum. With pressure applied to the Gastrografin bag, there is minimal retrograde filling of a structure in the pelvis, which appears a blind-ending loop. Contrast however does not progress beyond this structure, consistent with a high-grade stricture/obstruction. No definite leak. Postoperative surgical anatomy is unclear on this examination. FLUOROSCOPY TIME: 3 minutes 54 seconds DOSE AREA PRODUCT: [id number] uGy-m2 (microgray-meter squared) FL/FL barium enema IMPRESSION: 1. Contrast fills the rectum and an blind ended structure immediately superior to the rectum at the expected level of the anastomosis. Contrast fails to flow retrograde beyond the expected position of the anastomosis, consistent with a high-grade stricture/obstruction. Postoperative surgical anatomy is unclear. This procedure was performed by Chucho Jackson PA-C, and supervised by Dr. Dowell Electronically signed by: Jb Dowell MD 05/07/2024 03:44 PM EDT
== END 2024-05-07 10:18 | disposition home or self-care (01) ==
LOC: HO.XRAY 10:17
PROVIDERS: PCP Nurse Practitioner Family; Visit Provider Surgery
DX: Z90.49 Acquired absence of other specified parts of digestive tract (principal)
CPT/HCPCS: 74270

== ENCOUNTER → 2024-05-07 10:22 | Outpatient (BNV) | payer MEDICARE, SELFPAY | PROVIDERS: PCP Nurse Practitioner Family; Visit Provider Radiology Diagnostic Radiology | DX: Z93.2 Ileostomy status (principal) | CPT/HCPCS: 74270 ==

== ENCOUNTER 2024-05-13 09:11 | Outpatient (AMB) | payer MEDICARE, SELFPAY ==
[2024-05-13 09:18] VITALS: BMI 24.9
--- NOTE | 2024-05-13 09:18 | MHC.OFFVIS ---
Vital Signs 05/13/24 09:18 Height 5 ft 2 in Weight 136 lb 0.015 oz BMI 24.9 Intake Visit Reasons: Discuss txt plan Intake Note: Patient here to discuss barium enema on 05-07-2024 results. Patient c/o: reports no complaints. 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 Accompanied by: Self / Same As Patient Allergies clams Allergy (Severe, Verified 05/13/24 09:18) Stomach Upset clavulanic acid [Augmentin] Allergy (Unknown, Verified 05/13/24 09:18) GI, Difficulty breathing codeine [CODEINE] Allergy (Unknown, Verified 05/13/24 09:18) SENSITIVITY erythromycin base [Erythromycin Base] Allergy (Unknown, Verified 05/13/24 09:18) GI, DIFF BREATHING NSAIDS (Non-Steroidal Anti-Inflamma [NSAIDS (NON-STEROIDAL ANTI-INFLAMMA] Allergy (Unknown, Verified 05/13/24 09:18) GI UPSET Sulfa (Sulfonamide Antibiotics) Allergy (Unknown, Verified 05/13/24 09:18) RASH morphine [MORPHINE] Adverse Reaction (Severe, Verified 05/13/24 09:18) NAUSEA aspirin [Aspirin] Adverse Reaction (Mild, Verified 05/13/24 09:18) STOMACH UPSET melatonin Adverse Reaction (Verified 05/13/24 09:18) Vomiting HPI Comments Details: Patient presents for follow-up status post barium enema and in anticipation of ileostomy reversal. The barium enema study was suboptimal for variety of reasons. Patient did not tolerated well along with the balloon breaking/technical issues. Patient otherwise doing relatively well. She is periodically undergoing rehydration because of high ileostomy outputs. She also had COVID in March which she says she has recovered. [facility] Medical History Postop check Small bowel obstruction Anxiety Irritable bowel syndrome with constipation PVC (premature ventricular contraction) Myocardial infarction Hypertension Barretts esophagus GERD (gastroesophageal reflux disease) Surgical History (Updated 05/13/24 @ 10:07 by Jack Quan MD) Ileostomy in place Status post cardiac catheterization H/O dilation and curettage History of exploratory laparotomy (05/11/23) History of esophagogastroduodenoscopy (EGD) Hx of colonoscopy Family History Father Colon cancer Congestive heart failure Paternal Aunt Colon cancer Mother Congestive heart failure Afib Social History Household Members: None Housing: House Do you presently have visiting nurse or other home services: No Alcohol intake: never Patient Tobacco Use Status: Former Tobacco user Tobacco use type: Cigarette Cigarette Packs Per Day: 0.5 Cigarettes Per Day: 10.0 Years Smoked: 30 e-Cigarette/Vaping Use: Never Used Substance Use Type: Marijuana Advance Directives Date on File: 12/29/23 service: No Physical Exam Vital Signs: BMI result Body Mass Index 24.9 Chest Other: Chest sounds bilaterally, HS 1 in 2, Newman catheter in place right chest GI Other: Abdomen is soft, benign. Ostomy functioning Assessment & Plan Assessment & Plan (1) Ileostomy in place: Code(s): Z93.2 - Ileostomy status Category: Surgical Plan Because of the suboptimal barium enema exam, the current plan which was discussed with Dr. Ruvalcaba is to perform a flexible sigmoidoscopy to assess anastomotic integrity and patency. This will be done for this Monday. Further interventions studies will be directed by the above-mentioned results. All questions answered. Coding Level of Care Code Est Pt Level 4 (46203) Diagnoses Ileostomy in place Z93.2
== END 2024-05-13 09:30 | disposition home or self-care (01) ==
PROVIDERS: PCP Nurse Practitioner Family; Visit Provider Surgery
DX: Z93.2 Ileostomy status (principal)
CPT/HCPCS: 99214

== ENCOUNTER → 2024-05-13 09:11 | Outpatient (BNVA) | payer MEDICARE, SELFPAY | PROVIDERS: PCP Nurse Practitioner Family; Visit Provider Surgery | DX: Z93.2 Ileostomy status (principal) | CPT/HCPCS: 99212 ==

== ENCOUNTER 2024-05-17 10:55 | Day surgery (SDC) | payer MEDICARE, SELFPAY ==
--- NOTE | 2024-05-15 15:10 | HO.ANESPROP2 ---
HPI - Anesthesia Eval Consult details Narrative: 64yo F for Sigmoidoscopy Flexible Planned Ileostomy Reversal 05/23/24 s/p ex lap x 2 11/2023 (with ostomy) and 12/2023 (anastomotic issue), GA-ETT 7 Cardiac optimized Low normal LVEF on the most recent echocardiogram. Suspected stress-induced cardiomyopathy. May proceed with surgery as planned. Low to intermediate cardiac risk. PMF Active Problems Active Problems: All Active Problems MARKIE (acute kidney injury) (Acute) Increased ileostomy output (Acute) Stress-induced cardiomyopathy (Acute) Preoperative cardiovascular examination (Acute) MARKIE (acute kidney injury) (Acute) History of low anterior resection of rectum (Acute) Chest pain (Acute) NSTEMI (non-ST elevated myocardial infarction) (Acute) NSVT (nonsustained ventricular tachycardia) (Acute) S/P colostomy (Acute) Colovesical fistula (Acute) Perforated diverticulum (Acute) Hiatal hernia (Acute) Diverticulosis (Acute) Ileostomy in place (Acute) Postop check (Acute) PVC (premature ventricular contraction) (Acute) Irritable bowel syndrome with constipation (Acute) Past Medical History Medical History (Updated 05/13/24 @ 10:52 by Teresa Hickman RN) MARKIE (acute kidney injury) Back pain Arthritis History of transfusion of packed red blood cells Anemia Cardiomyopathy Anxiety Small bowel obstruction Postop check Myocardial infarction PVC (premature ventricular contraction) Hypertension Irritable bowel syndrome with constipation Barretts esophagus GERD (gastroesophageal reflux disease) Family History Family History Father Colon cancer Congestive heart failure Paternal Aunt Colon cancer Mother Congestive heart failure Afib Family history of problems with anesthesia: No Surgical History Surgical History (Updated 05/22/24 @ 09:43 by Jack Quan MD) Status post cardiac catheterization Ileostomy in place H/O dilation and curettage History of exploratory laparotomy (05/11/23) History of esophagogastroduodenoscopy (EGD) Hx of colonoscopy History of Problems with Anesthesia: No Social History Social History Household Members: None Housing: House Are you a primary direct care professional to a significant other at home: No Do you presently have visiting nurse or other home services: No Alcohol intake: never Patient Tobacco Use Status: Former Tobacco user Tobacco use type: Cigarette Cigarette Packs Per Day: 0.5 Cigarettes Per Day: 10.0 Years Smoked: 25 e-Cigarette/Vaping Use: Never Used Substance Use Type: Marijuana Advance Directives Date on File: 12/29/23 service: No Meds Allergies Allergy/AdvReac Type Severity Reaction Status Date / Time clams Allergy Severe Stomach Verified 05/22/24 07:47 Upset clavulanic acid [Augmentin] Allergy Unknown GI, Verified 05/22/24 07:47 Difficulty breathing codeine [CODEINE] Allergy Unknown SENSITIVIT Verified 05/22/24 07:47 Y erythromycin base Allergy Unknown GI, DIFF Verified 05/22/24 07:47 [Erythromycin Base] BREATHING NSAIDS (Non-Steroidal Allergy Unknown GI UPSET Verified 05/22/24 07:47 Anti-Inflamma [NSAIDS (NON-STEROIDAL ANTI-INFLAMMA] Sulfa (Sulfonamide Allergy Unknown RASH Verified 05/22/24 07:47 Antibiotics) morphine [MORPHINE] AdvReac Severe NAUSEA Verified 05/22/24 07:47 aspirin [Aspirin] AdvReac Mild STOMACH Verified 05/22/24 07:47 UPSET melatonin AdvReac Vomiting Verified 05/22/24 07:47 Home Medications ?Medication ?Instructions ?Recorded ?Confirmed ?Last Taken ?Type atorvastatin 20 mg tablet 20 mg PO BEDTIME 03/01/23 05/22/24 03/19/24 09:00 History calcium carbonate 600 mg-vitamin 1 tab PO DAILY 11/30/23 05/22/24 03/19/24 09:00 History D3 5 mcg (200 unit) tablet (Calcium 600 + D(3)) mirtazapine 15 mg tablet 15 mg PO BEDTIME 11/30/23 05/22/24 03/19/24 09:00 History acetaminophen 325 mg tablet 650 mg PO Q12H PRN Pain 01/07/24 05/22/24 03/19/24 09:00 History (Tylenol) multivitamin with minerals-folic 1 tab PO DAILY 01/07/24 05/22/24 03/19/24 09:00 History acid 200 mcg chewable tablet (Multivitamin Gummies) ondansetron HCl 4 mg tablet 4 mg PO Q8H PRN Nausea And Vomiting 01/07/24 05/22/24 03/19/24 09:00 History carisoprodol 350 mg tablet 350 mg PO BEDTIME 03/19/24 05/22/24 03/19/24 09:00 History magnesium glycinate 800 mg PO DAILY 03/19/24 05/22/24 03/19/24 09:00 History carvedilol 3.125 mg tablet 3.125 mg PO BID PRN Hypertension 05/13/24 05/22/24 05/15/24 History Exam Height,Weight and Vital Signs: Height 5 ft 2 in Weight 61.689 kg Pertinent Lab Results Pertinent Lab Results: Laboratory Tests 05/14/24 07:34 WBC 7.7 Hgb 10.7 L Hct 32.7 L Plt Count 203 Sodium 137 Potassium 4.3 Chloride 113 H Carbon Dioxide 19 L BUN 35 H Creatinine 0.89 Narrative Narrative: EKG 04/2024 Vent. Rate : 091 BPM Atrial Rate : 091 BPM P-R Int : 156 ms QRS Dur : 072 ms QT Int : 380 ms P-R-T Axes : 027 027 042 degrees QTc Int : 467 ms Normal sinus rhythm Normal ECG When compared with ECG of 01-APR-2024 07:36, No significant change was found ECHO 04/2024 Conclusions: - The left ventricular systolic function is normal. The visually estimated ejection fraction is between 50-55%. - The mid inferior and mid inferoseptal segments are hypokinetic. - No obvious valvular pathology seen on this study. Assessment and Plan Assessment Anesthesia Assessment: Chart Reviewed Final Anesthetic Review Family History of Problems with Anesthesia: No History of Problems with Anesthesia: No
--- NOTE | 2024-05-17 11:29 | MHC.SHP ---
Pre-Procedural Eval Section A - 24 Hr Update-Section A only Date of Service: 05/17/24 The patient is an INPATIENT: No Changes since office visit: No Cold of Flu in the past 2 weeks, No New Medical Problems, No Changes in Medication and No Patient answered all questions The patient has been examined within 24 hours of the surgical procedure. The History & Physical has been completed within 30 days and I have reviewed it.: Yes Section B - Complete if H&P > 30 days Chief Complaint: Ileostomy status Allergies: Allergies Allergy/AdvReac Type Severity Reaction Status Date / Time clams Allergy Severe Stomach Verified 05/17/24 11:15 Upset clavulanic acid [Augmentin] Allergy Unknown GI, Verified 05/17/24 11:15 Difficulty breathing codeine [CODEINE] Allergy Unknown SENSITIVIT Verified 05/17/24 11:15 Y erythromycin base Allergy Unknown GI, DIFF Verified 05/17/24 11:15 [Erythromycin Base] BREATHING NSAIDS (Non-Steroidal Allergy Unknown GI UPSET Verified 05/17/24 11:15 Anti-Inflamma [NSAIDS (NON-STEROIDAL ANTI-INFLAMMA] Sulfa (Sulfonamide Allergy Unknown RASH Verified 05/17/24 11:15 Antibiotics) morphine [MORPHINE] AdvReac Severe NAUSEA Verified 05/17/24 11:15 aspirin [Aspirin] AdvReac Mild STOMACH Verified 05/17/24 11:15 UPSET melatonin AdvReac Vomiting Verified 05/17/24 11:15 Plan I have reviewed the history and physical and performed a pertinent physical examination on my patient. No changes have occurred unless specified. Time Spent With Patient Time: Total time managing care of this patient today ____ minutes.
[2024-05-17 11:35] VITALS: BP 125/68; PULSE 89; RESP 16; TEMP 36.4; O2SAT 100; BMI 25.2
--- NOTE | 2024-05-17 12:31 | PC.NURSE ---
Right chest double lumen Newman cath accessed per order. Tolerated well. No issues. Dressing clean, dry and intact. Orders scanned to pharmacy for proper care after procedure and PACU.
--- NOTE | 2024-05-17 12:53 | W.PM.OPN ---
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 A barium enema study had shown a blind sigmoid. She understood the technique of the planned procedure as well as the risks, benefits, and alternatives. The patient was brought to the operating room. She was placed in left lateral decubitus position under monitored anesthesia care. Surgical time-out was done A full digital rectal exam was done. There were no palpable anal lesions. The tip of the Olympus colonoscope was gently introduced through the anal orifice and advanced through the rectosigmoid pouch. I reached the level of about 13-14 cm. There was note of a blind pouch in his area. There were sutures seen but he had not visualize any further lumen past this. I proceeded withdraw the scope carefully. The procedure was then completed The patient tolerated procedure well. There were no immediate complications. In view of this blind pouch with no patent anastomosis seen, the patient will require revision of this anastomosis.
[2024-05-17 13:00] VITALS: BP 111/65; PULSE 92; RESP 16; TEMP 36.6; O2SAT 99
[2024-05-17 13:15] VITALS: BP 132/69; PULSE 83; RESP 16; TEMP 36.6; O2SAT 100
== END 2024-05-17 13:50 | disposition home or self-care (01) ==
PROVIDERS: PCP Nurse Practitioner Family; Visit Provider Surgery
PROC: 0DJD8ZZ Inspection of Lower Intestinal Tract, Via Natural or Artificial Opening Endoscopic (ICD-10-PCS; CPT 45330; principal; 2024-05-17 13:00)
DX: N82.4 Other female intestinal-genital tract fistulae (principal); K90.2 Blind loop syndrome, not elsewhere classified; Z93.2 Ileostomy status; Z98.0 Intestinal bypass and anastomosis status; Z90.49 Acquired absence of other specified parts of digestive tract; Z80.0 Family history of malignant neoplasm of digestive organs; K58.1 Irritable bowel syndrome with constipation; I10 Essential (primary) hypertension; I25.2 Old myocardial infarction; K22.70 Barrett's esophagus without dysplasia; K21.9 Gastro-esophageal reflux disease without esophagitis; F41.9 Anxiety disorder, unspecified; Z98.890 Other specified postprocedural states; Z88.1 Allergy status to other antibiotic agents; Z88.6 Allergy status to analgesic agent; Z88.2 Allergy status to sulfonamides; Z88.5 Allergy status to narcotic agent; Z87.891 Personal history of nicotine dependence
CPT/HCPCS: 44385; J1642; J2704

== ENCOUNTER → 2024-05-17 10:55 | Outpatient (BNV) | payer MEDICARE, SELFPAY | PROVIDERS: PCP Nurse Practitioner Family; Visit Provider Surgery | DX: Z93.2 Ileostomy status (principal) | CPT/HCPCS: 45330 ==

== ENCOUNTER 2024-05-21 08:00 | Outpatient (RCR) | payer MEDICARE, SELFPAY ==
[2024-05-07 12:30] VITALS: BMI 24.9
[2024-05-07 12:32] VITALS: BP 143/81; PULSE 80; RESP 18; TEMP 36.1; O2SAT 100
--- NOTE | 2024-05-07 12:35 | HO.INF ---
phlebotomy at bedside. r ij dual lumen arceo cath with tunneled exit point to r chest accessed by this rn. each lumen patent, flushes easily, blood rtn visualized. dressing intact. waste tube drawn followed by ordered labs and given to phlebotomy. arceo lumens flushed with ns followed by heparin 50 units to each lumen per pt request.
[2024-05-07] MEDS: Heparin Sodium,Porcine Flush 50 UNITS, 0.9 % Sodium Chloride Flush 5 ML IVFLUSH (12:45)
--- NOTE | 2024-05-07 13:00 | HO.INF ---
r chest arceo dressing change done in sterile fashion. tegaderm with biopatch. new clave attached to each lumen and capped with curos cap. pt wishes to wait for lab results before starting ordered infusion.
[2024-05-07 13:14] LABS: Anion Gap 12 (12-20); Blood Urea Nitrogen 23 mg/dL (9-16); Calcium 9.4 mg/dL (8.4-10.2); Carbon Dioxide 18 mmol/L (22-29); Chloride 111 mmol/L (96-108); Creatinine Clr Calc Pharmacy 55.7; Estimated Glomerular Filt Rate > 60; Glucose Random 95 mg/dL (60-115); Potassium 3.7 mmol/L (3.3-5.1); Sodium 137 mmol/L (135-145)
--- NOTE | 2024-05-07 13:27 | HO.INF ---
pt has reviewed her own labs and has refused todays scheduled infusion. no infusion done.
[2024-05-14 07:20] VITALS: BP 116/68; PULSE 74; RESP 16; TEMP 36.1; O2SAT 100
--- NOTE | 2024-05-14 07:34 | HO.INF ---
ordered labs drawn off r chest arceo line. phlebotomy at bedside to collect specimen
[2024-05-14 07:41] LABS: Hematocrit 32.7 % (37.0-47.0); Hemoglobin 10.7 g/dl (12.0-16.0); Mean Corpuscular HGB Conc 32.7 g/dl (31.0-35.0); Mean Corpuscular Hemoglobin 30.2 pg (27.0-33.0); Mean Corpuscular Volume 92.4 fL (80.0-98.0); Mean Platelet Volume 8.9 fL (9.4-12.3); Platelet Count 203 X10*3/uL (160-400); Red Blood Count 3.54 X10*6/uL (4.20-5.50); Red Cell Distribution Width 13.5 % (11.0-16.0); White Blood Count 7.7 X10*3/uL (4.8-10.8)
--- NOTE | 2024-05-14 07:54 | HO.INF ---
r chest dual lumen arceo dressing change done in sterile fashion. ext raul at 0cm. very mild redness around arceo insertion site at r chest. otherwise no complaints from pt. biopatch applied.
[2024-05-14 07:56] LABS: Anion Gap 9 (12-20); Blood Urea Nitrogen 35 mg/dL (9-16); Calcium 9.1 mg/dL (8.4-10.2); Carbon Dioxide 19 mmol/L (22-29); Chloride 113 mmol/L (96-108); Creatinine Clr Calc Pharmacy 54.4; Estimated Glomerular Filt Rate > 60; Glucose Random 108 mg/dL (60-115); Potassium 4.3 mmol/L (3.3-5.1); Sodium 137 mmol/L (135-145)
[2024-05-14] MEDS: Lactated Ringers 1,000 ML 999 ML IV (08:10)
--- NOTE | 2024-05-14 08:11 | HO.INF ---
labs resulted. pt has reviewed her own labs and has decided on receiving 1 L of LR. 1 L LR IV infusion over 1 hr started. both lumens of r chest dual lumen arceo cath patent and flushing easily. blood return visualized on both lumens.
[2024-05-14] MEDS: Heparin Sodium,Porcine Flush 50 UNITS, 0.9 % Sodium Chloride Flush 5 ML IVFLUSH (09:16)
[2024-05-21 07:52] VITALS: BP 127/73; PULSE 82; RESP 16; TEMP 36.8; O2SAT 100
--- NOTE | 2024-05-21 07:58 | HO.INF ---
phlebotomy at bedside. labs drawn off r chest arceo dual lumen cath by this rn and handed to phleb. dual lumens patent and flush easily. awaiting results. dressing change will be done.
[2024-05-21 08:19] LABS: Anion Gap 12 (12-20); Blood Urea Nitrogen 21 mg/dL (9-16); Calcium 9.3 mg/dL (8.4-10.2); Carbon Dioxide 21 mmol/L (22-29); Chloride 112 mmol/L (96-108); Estimated Glomerular Filt Rate > 60; Glucose Random 104 mg/dL (60-115); Potassium 3.9 mmol/L (3.3-5.1); Sodium 141 mmol/L (135-145)
--- NOTE | 2024-05-21 08:30 | HO.INF ---
labs resulted. pt refused any iv hydration d/t results. sterile dressing change done to r chest arceo. biopatch applied. no apparent problems with arceo. asymptomatic. pt denies complaints. dual lumen- blood rtn visualized on both lumens. both lumens patent and flush easily. both lumens heparinized as documented. both claves changed and capped w/ curos caps.
== END 2024-05-21 09:45 | disposition home or self-care (01) ==
LOC: HO.INF 08:00
PROVIDERS: Nurse Practitioner; Visit Provider Surgery
DX: Z45.2 Encounter for adjustment and management of vascular access device (principal)
CPT/HCPCS: 36415; 80048; 85027; 96360; 96523; J1642

== ENCOUNTER 2024-05-22 07:44 | Outpatient (AMB) | payer MEDICARE, SELFPAY ==
--- NOTE | 2024-05-22 07:42 | A.OFFVIS_ITS ---
Vital Signs 05/22/24 07:46 Weight 137 lb BP 116/72 Blood Pressure Location Rt brachial Position Sitting Pulse 76 Intake Visit Reasons: wound check Intake Note: Patient here for Newman removal. 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 Accompanied by: Self / Same As Patient Allergies clams Allergy (Severe, Verified 05/22/24 07:47) Stomach Upset clavulanic acid [Augmentin] Allergy (Unknown, Verified 05/22/24 07:47) GI, Difficulty breathing codeine [CODEINE] Allergy (Unknown, Verified 05/22/24 07:47) SENSITIVITY erythromycin base [Erythromycin Base] Allergy (Unknown, Verified 05/22/24 07:47) GI, DIFF BREATHING NSAIDS (Non-Steroidal Anti-Inflamma [NSAIDS (NON-STEROIDAL ANTI-INFLAMMA] Allergy (Unknown, Verified 05/22/24 07:47) GI UPSET Sulfa (Sulfonamide Antibiotics) Allergy (Unknown, Verified 05/22/24 07:47) RASH morphine [MORPHINE] Adverse Reaction (Severe, Verified 05/22/24 07:47) NAUSEA aspirin [Aspirin] Adverse Reaction (Mild, Verified 05/22/24 07:47) STOMACH UPSET melatonin Adverse Reaction (Verified 05/22/24 07:47) Vomiting HPI Comments Details: Patient presents for Newman catheter removal. 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 The current recommendation is to for the patient to [place]. Kadeem [place]hman[place] [place]. I personally spoke with this colorectal surgeon and he is familiar with this type of issue and is willing to see the patient in consultation and arrangements were made for this. All patient's documentation has been faxed to his office as well. [facility] Medical History (Updated 05/13/24 @ 10:52 by Teresa Hickman RN) MARKIE (acute kidney injury) Back pain Arthritis History of transfusion of packed red blood cells Anemia Cardiomyopathy Anxiety Small bowel obstruction Postop check Myocardial infarction PVC (premature ventricular contraction) Hypertension Irritable bowel syndrome with constipation Barretts esophagus GERD (gastroesophageal reflux disease) Surgical History (Updated 05/22/24 @ 09:43 by Jack Quan MD) Status post cardiac catheterization Ileostomy in place H/O dilation and curettage History of exploratory laparotomy (05/11/23) History of esophagogastroduodenoscopy (EGD) Hx of colonoscopy Family History Father Colon cancer Congestive heart failure Paternal Aunt Colon cancer Mother Congestive heart failure Afib Social History Household Members: None Housing: House Are you a primary clinical care manager to a significant other at home: No Do you presently have visiting nurse or other home services: No Alcohol intake: never Patient Tobacco Use Status: Former Tobacco user Tobacco use type: Cigarette Cigarette Packs Per Day: 0.5 Cigarettes Per Day: 10.0 Years Smoked: 25 e-Cigarette/Vaping Use: Never Used Substance Use Type: Marijuana Advance Directives Date on File: 12/29/23 service: No Physical Exam Vital Signs: Last Vital Signs Pulse 76 05/22/24 07:46 BP 116/72 05/22/24 07:46 Chest Other: Uneventful Newman catheter removal. Dressing applied. Well tolerated. GI Other: Abdomen is soft, benign. Incision clean dry and intact. Ileostomy functioning Assessment & Plan Assessment & Plan (1) PIC line (peripherally inserted central catheter) removal: Code(s): Z45.2 - Encounter for adjustment and management of vascular access device Category: Surgical (2) Ileostomy in place: Code(s): Z93.2 - Ileostomy status Category: Surgical Plan As noted above, patient will be [place] [facility] [place] her anastomotic stricture. Arrangements were made for this. Coding Level of Care Code Est Pt Level 4 (07798) Diagnoses PIC line (peripherally inserted central catheter) removal Z45.[address] Z93[address]2
[2024-05-22 07:46] VITALS: BP 116/72; PULSE 76
== END 2024-05-22 08:01 | disposition home or self-care (01) ==
PROVIDERS: PCP Nurse Practitioner Family; Visit Provider Surgery
DX: Z45.2 Encounter for adjustment and management of vascular access device (principal); Z93.2 Ileostomy status
CPT/HCPCS: 99214

== ENCOUNTER → 2024-05-22 07:44 | Outpatient (BNVA) | payer MEDICARE, SELFPAY | PROVIDERS: PCP Nurse Practitioner Family; Visit Provider Surgery | DX: Z45.2 Encounter for adjustment and management of vascular access device (principal); Z93.2 Ileostomy status | CPT/HCPCS: 99212 ==

== ENCOUNTER 2024-06-25 14:32 | Outpatient (AMB) | payer MEDICARE, SELFPAY ==
--- NOTE | 2024-06-25 14:52 | A.OFFVIS_ITS ---
Vital Signs 06/25/24 14:58 Height 5 ft 2 in Weight 141 lb 1.533 oz BMI 25.8 BP 138/72 Blood Pressure Location Lt brachial Position Sitting Pulse 88 Pulse Source Pulse Oximeter Intake Visit Reasons: 3 mth f/up Allergies clams Allergy (Severe, Verified 05/22/24 07:47) Stomach Upset clavulanic acid [Augmentin] Allergy (Unknown, Verified 05/22/24 07:47) GI, Difficulty breathing codeine [CODEINE] Allergy (Unknown, Verified 05/22/24 07:47) SENSITIVITY erythromycin base [Erythromycin Base] Allergy (Unknown, Verified 05/22/24 07:47) GI, DIFF BREATHING NSAIDS (Non-Steroidal Anti-Inflamma [NSAIDS (NON-STEROIDAL ANTI-INFLAMMA] Allergy (Unknown, Verified 05/22/24 07:47) GI UPSET Sulfa (Sulfonamide Antibiotics) Allergy (Unknown, Verified 05/22/24 07:47) RASH morphine [MORPHINE] Adverse Reaction (Severe, Verified 05/22/24 07:47) NAUSEA aspirin [Aspirin] Adverse Reaction (Mild, Verified 05/22/24 07:47) STOMACH UPSET melatonin Adverse Reaction (Verified 05/22/24 07:47) Vomiting Medication List - Last Reconciled 06/25/24 by Lupillo Sinclair MD acetaminophen (Tylenol) 650 mg PO Q12H PRN atorvastatin 20 mg PO BEDTIME calcium carbonate-vitamin D3 600 mg-5 mcg (200 unit) (Calcium 600 + D(3)) 1 tab PO DAILY carisoprodol 350 mg PO BEDTIME carvedilol 3.125 mg PO ONCE esomeprazole magnesium (Nexium) 20 mg PO DAILY magnesium glycinate 800 mg PO DAILY mirtazapine 15 mg PO BEDTIME multivit with min-folic acid 200 mcg (Multivitamin Gummies) 1 tab PO DAILY HPI Comments Details: Kia returns for follow-up. To recall, she used to be seen at [facility] but she would like to switch to our practice. She was seen in inpatient consultation in the past. Last year, she had a diagnosis of stress-induced cardiomyopathy. In that setting, cardiac catheterization without any significant disease. She has lost a lot of weight and got very deconditioned but otherwise no clear-cut cardiac symptoms. She states that her blood pressure is now running quite low these days. She is on carvedilol 3.125 mg b.i.d. but she is worried that her blood pressure is running too low. She was on ARB but not anymore. Overall, generally feels okay. Apart from weakness/tiredness, she feels fine. No cardiac symptoms. [facility] Medical History (Updated 05/13/24 @ 10:52 by Teresa Hickman RN) MARKIE (acute kidney injury) Back pain Arthritis History of transfusion of packed red blood cells Anemia Cardiomyopathy Anxiety Small bowel obstruction Postop check Myocardial infarction PVC (premature ventricular contraction) Hypertension Irritable bowel syndrome with constipation Barretts esophagus GERD (gastroesophageal reflux disease) Surgical History (Updated 05/22/24 @ 09:43 by Jack Quan MD) Status post cardiac catheterization Ileostomy in place H/O dilation and curettage History of exploratory laparotomy (05/11/23) History of esophagogastroduodenoscopy (EGD) Hx of colonoscopy Family History Father Colon cancer Congestive heart failure Paternal Aunt Colon cancer Mother Congestive heart failure Afib Social History Household Members: None Housing: House Are you a primary assurance services manager health care to a significant other at home: No Do you presently have visiting nurse or other home services: No Alcohol intake: never Patient Tobacco Use Status: Former Tobacco user Tobacco use type: Cigarette Cigarette Packs Per Day: 0.5 Cigarettes Per Day: 10.0 Years Smoked: 25 e-Cigarette/Vaping Use: Never Used Substance Use Type: Marijuana Advance Directives Date on File: 12/29/23 service: No Review of Systems Const Denies weakness ENT Denies dizziness Card Denies chest pain, Denies chest pain with activity, Denies syncope, Denies rapid heart rate, Denies pedal edema, Denies edema, Denies leg edema, Denies lightheadedness, Denies palpitations, Denies dyspnea, Denies dyspnea on exertion and Denies orthopnea Resp Denies cough, Denies dyspnea and Denies dyspnea on exertion GI Denies hematochezia and Denies change in stool character Musc Denies abnormal gait, Denies muscle cramps, Denies muscle weakness, Denies numbness, Denies radiating pain into limb and Denies tingling Neuro Denies abnormal gait, Denies dizziness, Denies syncope, Denies numbness, Denies tingling and Denies weakness Endo Denies palpitations Physical Exam Vital Signs: Last Vital Signs Pulse 88 06/25/24 14:58 BP 138/72 06/25/24 14:58 BMI result Body Mass Index 25.8 Const General: comfortable and no acute distress Orientation/consciousness: patient oriented x3 HEENT Other: Unremarkable Head: Yes normal to inspection Neck Neck: Yes normal visual inspection Chest Chest palpation & inspection: normal inspection of the chest Resp Auscultation: clear to auscultation bilaterally Cardio Palpation: normal PMI Heart sounds: S1 normal heart sound present, S2 normal heart sound present, no gallops, no murmurs and no rubs GI Palpation (GI): Soft to palpation Back/Spine/Pelvis Other: unremarkable Skin General skin exam: no rashes or lesions noted Neuro General: patient oriented x3 Extrem General: Yes normal to inspection Psych Mental Status: mental status grossly normal Assessment & Plan Assessment & Plan (1) Stress-induced cardiomyopathy: Code(s): I51.81 - Takotsubo syndrome Category: Medical (2) Preoperative cardiovascular examination: Code(s): Z01.810 - Encounter for preprocedural cardiovascular examination Category: Medical Plan Cardiac data reviewed. Last year, LVEF was as low as 10-20% in setting of medical illness. Then she underwent cardiac catheterization that showed no significant disease. Suspected to be stress-induced cardiomyopathy. Echocardiogram from 07/24/2023 with normal LVEF at 55-60%. In the most recent study from April of this year, LVEF 50-55%. Overall, stress-induced cardiomyopathy with recovered LVEF. She can continue Coreg as much tolerated. She wants to take it only once a day as she is concerned about the blood pressure going too low. That is acceptable. If the blood pressure is more stable, then go back to twice a day dosing. With regard to ARB, has been tried in the past but due to low blood pressure not on it anymore. Also history of elevated creatinine. Otherwise, there were plans for bowel surgery but she states she is now referred to [facility]. No specific contraindications from cardiac and she may proceed as planned. There is a small risk of recurrent stress-induced cardiomyopathy. Beta-blockers may possibly mitigate that risk. We will see her in about 6 months' time. Coding Level of Care Code Est Pt Level 4 (62088) Diagnoses Stress-induced cardiomyopathy I51.81 Preoperative cardiovascular examination Z01.810
[2024-06-25 14:58] VITALS: BP 138/72; PULSE 88; BMI 25.8
== END 2024-06-25 15:15 | disposition home or self-care (01) ==
PROVIDERS: PCP Nurse Practitioner Family; Visit Provider Internal Medicine
DX: I51.81 Takotsubo syndrome (principal); Z01.810 Encounter for preprocedural cardiovascular examination
CPT/HCPCS: 99214

== ENCOUNTER → 2024-06-25 14:32 | Outpatient (BNVA) | payer MEDICARE, SELFPAY | PROVIDERS: PCP Nurse Practitioner Family; Visit Provider Internal Medicine | DX: Z01.810 Encounter for preprocedural cardiovascular examination (principal); I51.81 Takotsubo syndrome | CPT/HCPCS: 99212 ==

== ENCOUNTER 2024-08-19 15:55 | Outpatient (AMB) | payer MEDICARE, SELFPAY ==
[2024-08-19 16:03] VITALS: BP 128/88; PULSE 104; O2SAT 98; BMI 26.2
--- NOTE | 2024-08-19 16:03 | HO.NEPHOV_ITS ---
Vital Signs 08/19/24 16:03 Height 5 ft 2 in Weight 143 lb BMI 26.2 BP 128/88 Blood Pressure Location Rt brachial Position Sitting Pulse 104 H Pulse Source Pulse Oximeter Pulse Oximetry (%) 98 Oxygen Delivery Method Room Air Intake Visit Reasons: 2 Month F/U/ Conf Locks Tender Required: No Accompanied by: Self / Same As Patient Allergies clams Allergy (Severe, Verified 08/19/24 16:05) Stomach Upset clavulanic acid [Augmentin] Allergy (Unknown, Verified 08/19/24 16:05) GI, Difficulty breathing codeine [CODEINE] Allergy (Unknown, Verified 08/19/24 16:05) SENSITIVITY erythromycin base [Erythromycin Base] Allergy (Unknown, Verified 08/19/24 16:05) GI, DIFF BREATHING NSAIDS (Non-Steroidal Anti-Inflamma [NSAIDS (NON-STEROIDAL ANTI-INFLAMMA] Allergy (Unknown, Verified 08/19/24 16:05) GI UPSET Sulfa (Sulfonamide Antibiotics) Allergy (Unknown, Verified 08/19/24 16:05) RASH morphine [MORPHINE] Adverse Reaction (Severe, Verified 08/19/24 16:05) NAUSEA aspirin [Aspirin] Adverse Reaction (Mild, Verified 08/19/24 16:05) STOMACH UPSET melatonin Adverse Reaction (Verified 08/19/24 16:05) Vomiting Medication List - Last Reconciled 08/19/24 by Jeramie Mcclain MD acetaminophen (Tylenol) 650 mg PO Q12H PRN atorvastatin 20 mg PO BEDTIME calcium carbonate-vitamin D3 600 mg-5 mcg (200 unit) (Calcium 600 + D(3)) 1 tab PO DAILY carisoprodol 350 mg PO BEDTIME carvedilol 3.125 mg PO BID esomeprazole magnesium (Nexium) 20 mg PO DAILY magnesium glycinate 800 mg PO DAILY mirtazapine 15 mg PO BEDTIME multivit with min-folic acid 200 mcg (Multivitamin Gummies) 1 tab PO DAILY HPI Comments Details: Paloma is a pleasant middle-aged woman with history of ileostomy. She has high output ostomy leading to dehydration and electrolyte imbalance. Recently she had acute kidney injury due to dehydration. With fluid replacement renal function has returned to baseline. She continues to have fatigue. She has mild anemia as well. She is waiting for reversal of ileostomy to be done in May. 04/25/2024. He has been catheter has been inserted. She is having the lab drawn every Monday and followed by IV fluids. She is tolerating very well. Serum creatinine has come down to 1.3. Serum electrolytes normal as of [address] [facility] Medical History (Updated 05/13/24 @ 10:52 by Teresa Hickman RN) MARKIE (acute kidney injury) Back pain Arthritis History of transfusion of packed red blood cells Anemia Cardiomyopathy Anxiety Small bowel obstruction Postop check Myocardial infarction PVC (premature ventricular contraction) Hypertension Irritable bowel syndrome with constipation Barretts esophagus GERD (gastroesophageal reflux disease) Surgical History Status post cardiac catheterization Ileostomy in place H/O dilation and curettage History of exploratory laparotomy (05/11/23) History of esophagogastroduodenoscopy (EGD) Hx of colonoscopy Family History Father Colon cancer Congestive heart failure Paternal Aunt Colon cancer Mother Congestive heart failure Afib Social History Household Members: None Housing: House Are you a primary career based intervention coordinator to a significant other at home: No Do you presently have visiting nurse or other home services: No Alcohol intake: never Patient Tobacco Use Status: Former Tobacco user Tobacco use type: Cigarette Cigarette Packs Per Day: 0.5 Cigarettes Per Day: 10.0 Years Smoked: 25 e-Cigarette/Vaping Use: Never Used Substance Use Type: Marijuana Advance Directives Date on File: 12/29/23 service: No Physical Exam Vital Signs: Last Vital Signs Pulse 104 H 08/19/24 16:03 BP 128/88 08/19/24 16:03 Pulse Ox 98 08/19/24 16:03 Oxygen Delivery Method Room Air 08/19/24 16:03 BMI result Body Mass Index 26.2 Results Reviewed Nephrology Results: Hgb 10.7 g/dl (12.0-16.0) L 05/14/24 WBC 7.7 X10*3/uL (4.8-10.8) 05/14/24 Plt Count 203 X10*3/uL (160-400) 05/14/24 Sodium 141 mmol/L (135-145) 05/21/24 Potassium 3.9 mmol/L (3.3-5.1) 05/21/24 Chloride 112 mmol/L (96-108) H 05/21/24 Carbon Dioxide 21 mmol/L (22-29) L 05/21/24 BUN 21 mg/dL (9-16) H 05/21/24 Creatinine 0.85 mg/dL (0.5-1.4) 05/21/24 Calcium 9.3 mg/dL (8.4-10.2) 05/21/24 Assessment & Plan Assessment & Plan (1) MARKIE (acute kidney injury): Code(s): N17.9 - Acute kidney failure, unspecified Category: Medical (2) Increased ileostomy output: Code(s): R19.8 - Other specified symptoms and signs involving the digestive system and abdomen; Z93.2 - Ileostomy status Category: Medical Plan Pleasant middle-aged woman with high output ileostomy and status post MARKIE due to dehydration. History of Hypokalemia and hypomagnesemia due to GI losses. Mild anemia I have suggested to increase her fluid intake to maintain intake more than output. Add Sodium bicarb 650 mg daily Await reversal of ostomy Orders: Orders Complete Blood Count Auto Diff 06/28/24 N17.9 - Acute kidney failure, unspecified, Z93.2 - Ileostomy status, Z93.3 - Colostomy status Phosphorus 06/28/24 N17.9 - Acute kidney failure, unspecified, Z93.2 - Ileostomy status, Z93.3 - Colostomy status Basic Metabolic Panel 06/28/24 N17.9 - Acute kidney failure, unspecified, Z93.2 - Ileostomy status, Z93.3 - Colostomy status Magnesium 06/28/24 N17.9 - Acute kidney failure, unspecified, Z93.2 - Ileostomy status, Z93.3 - Colostomy status Basic Metabolic Panel 3 Months N17.9 - Acute kidney failure, unspecified Magnesium 3 Months N17.9 - Acute kidney failure, unspecified Phosphorus 3 Months N17.9 - Acute kidney failure, unspecified Complete Blood Count no Diff 3 Months N17.9 - Acute kidney failure, unspecified Medications: New sodium bicarbonate 650 mg PO DAILY PRN 100 tabs 0RF stomach upset Coding Level of Care Code Est Pt Level 4 (67261) Diagnoses MARKIE (acute kidney injury) N17.9 Increased ileostomy output R19.8; Z93.2
== END 2024-08-19 16:17 | disposition home or self-care (01) ==
PROVIDERS: PCP Nurse Practitioner Family; Visit Provider Internal Medicine Hypertension Specialist
DX: N17.9 Acute kidney failure, unspecified (principal); R19.8 Other specified symptoms and signs involving the digestive system and abdomen; Z93.2 Ileostomy status
CPT/HCPCS: 99214

== ENCOUNTER → 2024-08-19 15:55 | Outpatient (BNVA) | payer MEDICARE, SELFPAY | PROVIDERS: PCP Nurse Practitioner Family; Visit Provider Internal Medicine Hypertension Specialist | DX: N17.9 Acute kidney failure, unspecified (principal); R19.8 Other specified symptoms and signs involving the digestive system and abdomen; Z93.2 Ileostomy status; Z93.3 Colostomy status | CPT/HCPCS: 99212 ==

== ENCOUNTER → 2024-09-06 08:03 | Outpatient (REF) | payer MEDICARE, SELFPAY | LOC: HO.CARD 08:03 | PROVIDERS: PCP Nurse Practitioner Family; Visit Provider Internal Medicine | DX: R00.2 Palpitations (principal) | CPT/HCPCS: 93242 ==

== ENCOUNTER → 2024-09-06 08:06 | Outpatient (BNV) | payer MEDICARE, SELFPAY | PROVIDERS: PCP Nurse Practitioner Family; Visit Provider Internal Medicine Cardiovascular Disease | DX: I49.3 Ventricular premature depolarization (principal) | CPT/HCPCS: 93244 ==

== ENCOUNTER 2024-10-17 14:40 | Outpatient (AMB) | payer MEDICARE, SELFPAY ==
--- OUTSIDE RECORDS SUMMARY | 2024-10-17 14:45 | XMS_ITS | Patient Health Record ---
Author Organization [facility] Address [address] [place] [address] Care Team Providers Care Scrummaster Name Role Phone Deion Asencio Primary Care Provider UnavailBrian Lucas Jr Unavailable [phone] REASON FOR REFERRAL No Information SOCIAL HISTORY Sex Assigned At : Social History Observation Description Sex Assigned At Unknown PLAN OF TREATMENT No Information Insurance Providers Payer Name Payer Address Payer Phone Subscriber Number Group Number Insured Name Patient Relationship to Insured Coverage Start Date Coverage End Date [facility] [address] [place] [phone] [id number] ROSMERY SUTTON Self - patient is the insured
--- OUTSIDE RECORDS SUMMARY | 2024-10-17 14:46 | XMS_ITS ---
Author Organization [facility] Address [address] [place] [phone] Care Team Providers Care Carpet Sewer Name Role Phone Deion Asencio Primary Care Provider Unavaila Brian Rene Jr Unavailable Rashard Malcolm Unavailable [phone] REASON FOR VISIT Patient presents today for ABD PAIN, DIVERTICULITIS Encounters Encounter Location Date Provider Diagnosis [facility] [address] [place] [phone] 06/02/2023 Rashard Malcolm PLAN OF TREATMENT No Information
--- OUTSIDE RECORDS SUMMARY | 2024-10-17 14:46 | XMS_ITS ---
Author Organization [facility] Address Unknown Allergies, Adverse Reactions, Alerts Substance Reaction Status Noted Date Resolved Date Sulfa Antibiotics active 05/05/2020 Shell Fish active 05/05/2020 Iodinated radio contrast dye active 020 Ibuprofen active 05/05/2020 Erythromycin active 05/05/2020 Augmentin active 05/05/2020 Aspirin active 05/05/2020 Problems Problem Status Start Date End Date PAIN IN RIGHT LOWER LEG (Primary) (M79.661 - ICD-10-CM ) ACTIVE 05/06/2020 MUSCLE WEAKNESS (GENERALIZED) (M62.81 - ICD-10-CM) ACT ADAN 05/05/2020 UNSTEADINESS ON FEET (R26.81 - ICD-10-CM) ACTIVE 05/05/2020 OTHER ABNORMALITIES OF GAIT AND MOBILITY (R26.89 - ICD-10-CM) ACTIVE 05/05/2020 WEAKNESS (R53.1 - ICD-10-CM) ACTIVE 05/05/2020 PRIMARY OSTEOARTHRITIS, UNSP ECIFIED SITE (M19.91 - ICD-10-CM) ACTIVE 05/05/2020 OTHER SPECIFIED ARTHRITIS, M ULTIPLE SITES (M13.89 - ICD-10-CM) ACTIVE 05/05/2020 HYPERLIPIDEMIA, UNSPECIFIED (E78.5 - ICD-10-CM) ACTIVE 05/05/2020 ESSENTIAL (PRIMARY) HYPERTENSION (I10 - ICD-10-CM) ACT ADAN 05/05/2020 GASTRO-ESOPHAGEAL REFLUX DIS EASE WITHOUT ESOPHAGITIS (K21.9 - ICD-10-CM) ACTIVE 05/05/2020 Encounters Encounter Performer Performer Role Encounter Diagnoses Location Date Discharge - Discharged to home or self care - HOME - Home [facility] 0 06:09 pm EDT - 0 01:34 pm EDT Social History
--- OUTSIDE RECORDS SUMMARY | 2024-10-17 14:46 | XMS_ITS ---
Author Organization [facility] Address [address] [place] [phone] Care Team Providers Care Board Certified Arts Therapist Name Role Phone Deion Asencio Primary Care Provider Unavaila Brian Rene Jr Unavailable [phone] Rashard Malcolm Unavailable [phone] REASON FOR VISIT cancel appt Encounters Encounter Location Date Provider Diagnosis [facility] [address] [place] [phone] 05/31/2023 Rashard Malcolm PLAN OF TREATMENT No Information
--- NOTE | 2024-10-17 14:50 | MHC.OFFVIS ---
Vital Signs 10/17/24 14:51 Height 5 ft 2 in Weight 155 lb 10.342 oz BMI 28.5 BP 126/70 Blood Pressure Location Lt brachial Position Sitting Pulse 69 Pulse Source Pulse Oximeter Intake Visit Reasons: Discuss medication Hand Engraver Required: No Accompanied by: Self / Same As Patient Allergies clams Allergy (Severe, Verified 08/19/24 16:05) Stomach Upset clavulanic acid [Augmentin] Allergy (Unknown, Verified 08/19/24 16:05) GI, Difficulty breathing codeine [CODEINE] Allergy (Unknown, Verified 08/19/24 16:05) SENSITIVITY erythromycin base [Erythromycin Base] Allergy (Unknown, Verified 08/19/24 16:05) GI, DIFF BREATHING NSAIDS (Non-Steroidal Anti-Inflamma [NSAIDS (NON-STEROIDAL ANTI-INFLAMMA] Allergy (Unknown, Verified 08/19/24 16:05) GI UPSET Sulfa (Sulfonamide Antibiotics) Allergy (Unknown, Verified 08/19/24 16:05) RASH morphine [MORPHINE] Adverse Reaction (Severe, Verified 08/19/24 16:05) NAUSEA aspirin [Aspirin] Adverse Reaction (Mild, Verified 08/19/24 16:05) STOMACH UPSET melatonin Adverse Reaction (Verified 08/19/24 16:05) Vomiting Medication List - Last Reconciled 10/17/24 by Lupillo Sinclair MD acetaminophen (Tylenol) 650 mg PO Q12H PRN atorvastatin 20 mg PO BEDTIME calcium carbonate-vitamin D3 600 mg-5 mcg (200 unit) (Calcium 600 + D(3)) 1 tab PO DAILY carisoprodol 350 mg PO BEDTIME carvedilol 6.25 mg PO BID esomeprazole magnesium (Nexium) 20 mg PO DAILY magnesium glycinate 800 mg PO DAILY mirtazapine 15 mg PO BEDTIME multivit with min-folic acid 200 mcg (Multivitamin Gummies) 1 tab PO DAILY HPI Comments Details: Kia returns for follow-up. To recall, she used to be seen at [facility] but she then switched to our practice. She was seen in inpatient consultation in the past. Then diagnosed with stress-induced cardiomyopathy. In that setting, cardiac catheterization without any significant disease. She continues to be on carvedilol. Was on ARB but not anymore. Since last seen, she states she is feeling fine. On one occasion, she had a rapid heartbeat but uncertain what the etiology is. No clear recurrence. [facility] Medical History (Updated 05/13/24 @ 10:52 by Teresa Hickman RN) MARKIE (acute kidney injury) Back pain Arthritis History of transfusion of packed red blood cells Anemia Cardiomyopathy Anxiety Small bowel obstruction Postop check Myocardial infarction PVC (premature ventricular contraction) Hypertension Irritable bowel syndrome with constipation Barretts esophagus GERD (gastroesophageal reflux disease) Surgical History Status post cardiac catheterization Ileostomy in place H/O dilation and curettage History of exploratory laparotomy (05/11/23) History of esophagogastroduodenoscopy (EGD) Hx of colonoscopy Family History Father Colon cancer Congestive heart failure Paternal Aunt Colon cancer Mother Congestive heart failure Afib Social History Household Members: None Housing: House Are you a primary customer care professional to a significant other at home: No Do you presently have visiting nurse or other home services: No Alcohol intake: never Patient Tobacco Use Status: Former Tobacco user Tobacco use type: Cigarette Cigarette Packs Per Day: 0.5 Cigarettes Per Day: 10.0 Years Smoked: 25 e-Cigarette/Vaping Use: Never Used Substance Use Type: Marijuana Advance Directives Date on File: 12/29/23 service: No Review of Systems Const Denies chills, Denies fatigue, Denies fever(s), Denies weight gain and Denies weight loss ENT Denies dizziness Card Denies chest pain, Denies leg edema, Denies lightheadedness, Denies palpitations, Denies dyspnea on exertion, Denies orthopnea and Denies other Resp Denies cough and Denies dyspnea on exertion GI Denies hematochezia and Denies change in stool character Musc Denies abnormal gait, Denies muscle weakness, Denies numbness, Denies radiating pain into limb and Denies tingling Neuro Denies abnormal gait, Denies dizziness, Denies numbness and Denies tingling Endo Denies fatigue and Denies palpitations Physical Exam Vital Signs: Last Vital Signs Pulse 69 10/17/24 14:51 BP 126/70 10/17/24 14:51 BMI result Body Mass Index 28.5 Const General: comfortable and no acute distress Orientation/consciousness: patient oriented x3 HEENT Other: Unremarkable Head: Yes normal to inspection Neck Neck: Yes normal visual inspection Chest Chest palpation & inspection: normal inspection of the chest Resp Auscultation: clear to auscultation bilaterally Cardio Palpation: normal PMI Heart sounds: S1 normal heart sound present, S2 normal heart sound present, no gallops, no murmurs and no rubs GI Palpation (GI): Soft to palpation Back/Spine/Pelvis Other: unremarkable Skin General skin exam: no rashes or lesions noted Neuro General: patient oriented x3 Extrem General: Yes normal to inspection Psych Mental Status: mental status grossly normal Assessment & Plan Assessment & Plan (1) Stress-induced cardiomyopathy: Code(s): I51.81 - Takotsubo syndrome Category: Medical (2) PVC (premature ventricular contraction): Code(s): I49.3 - Ventricular premature depolarization Category: Medical Plan Cardiac data reviewed. Last year, LVEF was as low as 10-20% in setting of medical illness. Then she underwent cardiac catheterization that showed no significant disease. Suspected to be stress-induced cardiomyopathy. In the most recent study from April 2024, LVEF 50-55%. Overall, stress-induced cardiomyopathy with recovered LVEF. Continue Coreg. With regard to ARB, has been tried in the past but could not take because of low blood pressure. There is also history of elevated creatinine. Otherwise with regard to the palpitations, she is concerned if it is some arrhythmia. Holter shows PVCs with a burden of about 1%. Rare PACs. Beta-blockers should help. If indeed she has recurrent palpitations, then we can reassess. Discussed. Follow-up in 6 months. In the interim, she will call with concerns. Medications: New carvedilol (Coreg) must administer with a meal/food 6.25 mg PO BID 180 tabs 3RF 90 days Coding Level of Care Code Est Pt Level 4 (91778) Diagnoses Stress-induced cardiomyopathy I51.81 PVC (premature ventricular contraction) I49.3
[2024-10-17 14:51] VITALS: BP 126/70; PULSE 69; BMI 28.5
== END 2024-10-17 15:19 | disposition home or self-care (01) ==
LOC: HO.HCS 15:30
PROVIDERS: PCP Nurse Practitioner Family; Visit Provider Internal Medicine
DX: I51.81 Takotsubo syndrome (principal); I49.3 Ventricular premature depolarization
CPT/HCPCS: 99214

== ENCOUNTER → 2024-10-17 14:43 | Outpatient (BNVA) | payer MEDICARE, SELFPAY | PROVIDERS: PCP Nurse Practitioner Family; Visit Provider Internal Medicine | DX: I51.81 Takotsubo syndrome (principal); I49.3 Ventricular premature depolarization | CPT/HCPCS: 99212 ==

== ENCOUNTER 2024-12-19 12:40 | Outpatient (AMB) | payer MEDICARE, SELFPAY ==
--- NOTE | 2024-12-19 13:05 | A.OFFPC_ITS ---
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 Establish Care Intake Note: Pt is here today as a New Patient to est care/ Pt c/o arthritis all over body Allergies clams Allergy (Severe, Verified 12/19/24 13:22) Stomach Upset clavulanic acid [Augmentin] Allergy (Unknown, Verified 12/19/24 13:22) GI, Difficulty breathing codeine [CODEINE] Allergy (Unknown, Verified 12/19/24 13:22) SENSITIVITY erythromycin base [Erythromycin Base] Allergy (Unknown, Verified 12/19/24 13:22) GI, DIFF BREATHING NSAIDS (Non-Steroidal Anti-Inflamma [NSAIDS (NON-STEROIDAL ANTI-INFLAMMA] Allergy (Unknown, Verified 12/19/24 13:22) GI UPSET Sulfa (Sulfonamide Antibiotics) Allergy (Unknown, Verified 12/19/24 13:22) RASH morphine [MORPHINE] Adverse Reaction (Severe, Verified 12/19/24 13:22) NAUSEA aspirin [Aspirin] Adverse Reaction (Mild, Verified 12/19/24 13:22) STOMACH UPSET melatonin Adverse Reaction (Verified 12/19/24 13:22) Vomiting Medication List - Last Reconciled 12/19/24 by Joi Rebollra MD acetaminophen (Tylenol) 650 mg PO Q12H PRN atorvastatin 20 mg PO BEDTIME calcium carbonate-vitamin D3 600 mg-5 mcg (200 unit) (Calcium 600 + D(3)) 1 tab PO DAILY carisoprodol 350 mg PO BEDTIME carvedilol (Coreg) 6.25 mg PO BID 90 days esomeprazole magnesium (Nexium) 20 mg PO DAILY magnesium glycinate 800 mg PO DAILY mirtazapine 15 mg PO BEDTIME multivit with min-folic acid 200 mcg (Multivitamin Gummies) 1 tab PO DAILY Tobacco use date assessed: 12/19/24 Fall risk assessment: 2 + Falls in past year Last assessed Fall Risk: 12/19/24 Dental Screening Dental Screen Date: 12/19/24 Did you have a dental visit in the last 12 months?: Yes Did you have a dental problem in the last 6 months where you did not have access to dental care?: No Was dental information given to patient?: Patient has dentist 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 She has history of small-bowel obstruction status post ileostomy placed a year ago , due for a reversal this coming May. She has history of stress-induced cardiomyopathy in the past and has occasional PVCs, currently seen by Cardiology and continued on carvedilol. She has dyslipidemia currently on atorvastatin. She is currently being seen by General surgery at [facility], history previous Tye's procedure for a colovesical fistual from diverticulr disease, admitted on for elective reversal of endcolostomy. She had an end-to-end anastomosis, and tolerated the procedure well. However, she started to have stool passing from her vagina on POD 2. She was diagnosed to have inadvertent anastomosis of the colon to the posterior vagina. She underwent laparotomy, takedown of the colovaginal anastomosis, repair of the posterior vaginal wall, end to end anastomosis of the colon to the rectal stump and diverting loop ileostomy with a MIKI drain on 12/04/23. Has hernia at ileostomy site, is scheduled for herniorrhaphy procedure at [facility] on 01/07[facility]2025 [facility] Medical History (Updated 12/19/24 @ 14:03 by Joi Rebollar MD) Bilateral knee pain Polyarthralgia MARKIE (acute kidney injury) Back pain Arthritis History of transfusion of packed red blood cells Anemia Cardiomyopathy Anxiety Small bowel obstruction Postop check Myocardial infarction PVC (premature ventricular contraction) Hypertension Irritable bowel syndrome with constipation Barretts esophagus GERD (gastroesophageal reflux disease) Surgical History Status post cardiac catheterization Ileostomy in place H/O dilation and curettage History of exploratory laparotomy (05/11/23) History of esophagogastroduodenoscopy (EGD) Hx of colonoscopy Family History (Updated 12/19/24 @ 13:16 by Nelly Mon CMA) Father Colon cancer Congestive heart failure Paternal Aunt Colon cancer Mother Congestive heart failure Afib Social History Household Members: None Housing: House Are you a primary progressive care unit registered nurse to a significant other at home: No Do you presently have visiting nurse or other home services: No Alcohol intake: never Patient Tobacco Use Status: Former Tobacco user Tobacco use type: Cigarette Cigarette Packs Per Day: 0.5 Cigarettes Per Day: 10.0 Years Smoked: 25 e-Cigarette/Vaping Use: Never Used Substance Use Type: Marijuana Advance Directives Date on File: 12/29/23 service: No Cognitive needs: No Hearing needs: No Vision needs: Yes Questionnaire PHQ-9 Over the last 2 weeks, how often have you been bothered by any of the following problems? 1. Little interest or pleasure in doing things: not at all 2. Feeling down, depressed, or hopeless: not at all 3. Trouble falling or staying asleep, or sleeping too much: more than half the days 4. Feeling tired or having little energy: several days 5. Poor appetite or overeating: not at all 6. Feeling bad about yourself - or that you are a failure or have let yourself or your family down: not at all 7. Trouble concentrating on things, such as reading the newspaper or watching television: not at all 8. Moving or speaking so slowly that other people could have noticed. Or the opposite - being so fidgety or restless that you have been moving around a lot more than usual: not at all 9. Thoughts that you would be better off or of hurting yourself in some way: not at all Total score: 3 Source: Developed by Drs. Rashard Wang, Cris Amato, Tone Sheth and colleagues, with an educational lorenzo from [employer]. Thrive Questionnaire Date Thrive assessed: 12/12/24 I am a: Patient What is your living situation today?: I have a steady place to live Within the past 12 months, did the food you bought not last and you didn't have the money to get more?: Never true Within the past 12 months, did you worry whether your food would run out before you got money to buy more?: Never true Do you have trouble paying for medicines?: No Do you have trouble getting transportation to medical appointments?: No Do you have trouble paying your heating and electricity bill?: No Do you have trouble taking care of your child, family member or friend?: No Do you have trouble with day-to-day activities such as bathing, preparing meals, shopping, managing finances, etc.?: No Are you currently unemployed and looking for a job?: No Are you interested in more education?: No Please select the resources that you would like help with: None Currently or been in a relationship where the following occur: No concerns reported THRIVE Score: 0 AUDIT C Alcohol Use Questionnaire (AUDIT-C) 1. How often do you have a drink containing alcohol?: Never Total Score: 0 ANSHU-7 AMB Questionnaire ANSHU-7 Date ANSHU - 7 assessed: 12/19/24 Feeling nervous, anxious, or on edge: 1 = Several days Not being able to stop or control worryin = Not at all Worrying too much about different things: 0 = Not at all Trouble relaxin = Several days Being so restless that it is hard to sit still: 1 = Several days Becoming easily annoyed or irritable: 0 = Not at all Feeling afraid as if something awful might happen: 0 = Not at all Total ANSHU-7 score (0-4 normal; 5-9 mild; 10-14 moderate; 15-21 severe): 3 Source: Developed by Drs. Rashard Wang, Cris Amato, Tone Sheth and colleagues, with an educational lorenzo from [employer]. Physical exam (Primary Care) Vital Signs: Last Vital Signs Temp 98.1 F 12/19/24 13:10 Pulse 82 12/19/24 13:10 Resp 16 12/19/24 13:10 BP 120/74 12/19/24 13:10 Pulse Ox 97 12/19/24 13:10 Oxygen Delivery Method Room Air 12/19/24 13:10 BMI result Body Mass Index 28.9 Tobacco/Smoking Status: Tobacco use Status Tobacco use date assessed 12/19/24 12/19/24 13:06 Patient Tobacco Use Status Former Tobacco user 12/19/24 13:06 Tobacco use type Cigarette 12/19/24 13:06 e-Cigarette/Vaping Use Never Used 12/19/24 13:06 PHQ-9: PHQ-9 Score PHQ-9: Total score 3 12/19/24 14:03 Thrive Assessment: Date of Thrive Assessment Date Thrive assessed 12/12/24 12/19/24 13:06 Currently or been in a relationship where the following occur: No concerns reported Immunizations pneumoc 20-adriana conj-dip cr(PF) 0.5 mL IM syringe Performing Provider: Joi Rebollar MD Performing Location[place] [facility] Administered by: Nelly Mon CMA on 12/19/24 14:10 Dose Route Admin Location Dispensed Lot Number Expiration Date NDC Chinese [employer] Practitioner 0.5 mL IM Left Deltoid 0.5 mL [id number] 11/01/25 [id number] [employer] VIS Given Date VIS Provided VIS Publication Date 12/19/24 Single Vaccine 21 Eligibility Eligibility Date Funding Source Not [facility] Eligible 12/19/24 Private Coding Level of Care Code New Pt Level 4 (75023) Diagnoses Polyarthralgia M25.50 Need for pneumococcal 20-valent conjugate vaccination Z23 Assessment & Plan Assessment & Plan (1) Polyarthralgia: Code(s): M25.50 - Pain in unspecified joint Category: Medical (2) Need for pneumococcal 20-valent conjugate vaccination: Code(s): Z23 - Encounter for immunization Orders: Orders Pneumococcal 20 Immunization Today Z23 - Encounter for immunization Referrals Rheumatology Referral M25.50 - Pain in unspecified joint, M25.561 - Pain in right knee, M25.562 - Pain in left knee
[2024-12-19 13:10] VITALS: BP 120/74; PULSE 82; RESP 16; TEMP 36.7; O2SAT 97; BMI 28.9
--- OUTSIDE RECORDS SUMMARY | 2024-12-19 15:27 | XMS_ITS ---
Author Organization [facility] Care Team Providers Care Director Of Physical Education Name Role Phone Mayur, Pippa Mcelroy Unavailable Unavailable Unique Fritz Unavailable Unavailable Joanna Webster Unavailable Unavailable Luzmaria Ruiz Unavailable Unavailable Allergies and adverse reactions Code CodeSystem Substance Reaction Severity StartDate Concern Status 925998136 SNOMED CT Sulfa Antibiotics Unknown 05/05/2020 active Shell Fish Unknown 05/05/2020 active Iodinated radio contrast dye Unknown 05/05/2020 active 5640 RXNORM Ibuprofen Unknown 05/05/2020 active 4053 RXNORM Erythromycin Unknown 05/05/2020 active Augmentin Unknown 05/05/2020 active 1191 RXNORM Aspirin Unknown 05/05/2020 active Care Team Name Role Address Phone Organization Dates Pippa Merchant PCP [address] [place] [address], [facility] (Office): : [facility] 05/05/2020 - 05/07/2020 Unique Fritz Attending Physician [address] [place] [address], [facility] (Office): : [facility] 05/05/2020 - 05/07/2020 Joanna Webster Attending Physician [address] [place] [address], [facility] (Office): : [facility] 05/05/2020 - 05/07/2020 Luzmaria Ruiz Attending Physician [address] [place] [address], [address], [place] (Office): : [facility] 05/05/2020 - 05/07/2020 Goals Section Description Status Target Date : SKIN IMPAIRMENT- Skin will remain intact-Potential: [place] Scale Risk: Moderate = 11-15; High = 5-10 Active 08/04/2020 ADL's MOBILITY IMPAIRED-Improve skills to achiev e discharge. Active 08/04/2020 ADVANCED DIRECTIVES: Residen t wishes for advance directives will be honored Active 08/04/2020 BOWEL/BLADDER IMPAIRMENT: Achieve continence and prevent infection Active 08/04/2020 DISCHARGE PLANNING - Achieve discharge as planne d Active 08/04/2020 EDUCATION - Resident/caregiv er will achieve desired or required knowledge for discharge Active 08/04/2020 FALL RISK - Resident will be free of injury from fall Active 08/04/2020 I hope that I can be success fully resuscitated in the event my heart stops. Active 08/04/2020 My family and I will participate in my discharge planning Active 08/04/2020 NUTRITION/FLUID MAINTENANCE - Resident will have meal intake greater than 75 %. Resident will have no signs and symptoms of fluid imbalance. Active 08/04/2020 PAIN- ALTERATION IN COMFORT- Reduce pain/remain pain free Active 08/04/2020 PSYCH-ACTIVE MEDICATION - Pa tient/Resident will have the lowest therapeutic dose with no adverse side effects Active 08/04/20 20 Patient will maintain best function for abilitie s Active 08/04/2020 The resident will maintain i nvolvement in cognitive stimulation, social activities as desired through review date. Active 09/2019 Mental Status Section Date Assessment Total Score Description 05/07/2020 BIMS 15 cognitively int act CAM 0 No delirium ind icated PHQ-9 00 Problems Problem # Description Date of onset Resolved Date Code CodeSystem Concern Status 1 PAIN IN RIGHT LOWER LEG 05/06/[address] active 2 ESSENTIAL (PRIMARY) HYPERTENSION 05/05/[address] active 3 GASTRO-ESOPHAGEAL REFLUX DISEASE WITHOUT ESOPHAGITIS 05/05/[address] active 4 HYPERLIPIDEMIA, UNSPECIFIED 05/05/[address] active 5 MUSCLE WEAKNESS (GENERALIZED) 05/05/[address] active 6 OTHER ABNORMALITIES OF GAIT AND MOBILITY 05/05/[address] active 7 OTHER SPECIFIED ARTHRITIS, MULTIPLE SITES 05/05/[address] active 8 PRIMARY OSTEOARTHRITIS, UNSPECIFIED SITE 05/05/[address] active 9 UNSTEADINESS ON FEET 05/05/[address] active 10 WEAKNESS 05/05/[address] active Reason for Referral No Reasons for Referral Entered Social History Social History Observation Description Start Date End Date Code Code System Current Smoking Status Tobacco smoking consumption unknown 763107698 SNOMED CT Sex Assigned At Female 1960 18962-4 [facility] Vital Signs Code Code System Vitals Name Values and Units Timing Information 9279-1 [facility] Respiratory Rate Value=16.0 Units=/m in 05/07/2020 8462-4 [facility] Blood Pressure-Diastolic Value=76 Un its=mmHg 05/07/2020 8480-6 [facility] Blood Pressure-Systolic Qdcpl=878 Un its=mmHg 05/07/2020 8310-5 [facility] Body Temperature Value=97.3 Units=?? F 05/07/2020 8867-4 [facility] Heart rate Value=60.0 Units=/min 11/2019 68350-1 [facility] O2 % BldC Oximetry Value=95.0 Units= % 05/07/2020 81326-8 [facility] Pain Level Value=0.0 05/07/2020
== END 2024-12-19 14:13 | disposition home or self-care (01) ==
LOC: HO.HMCC 12:41
PROVIDERS: PCP Nurse Practitioner Family; Visit Provider Internal Medicine
DX: Z23 Encounter for immunization (principal)

== ENCOUNTER → 2024-12-19 12:40 | Outpatient (BNVA) | payer MEDICARE, SELFPAY | PROVIDERS: PCP Nurse Practitioner Family; Visit Provider Internal Medicine | DX: Z76.89 Persons encountering health services in other specified circumstances (principal); Z23 Encounter for immunization; M25.50 Pain in unspecified joint; R19.8 Other specified symptoms and signs involving the digestive system and abdomen; K43.9 Ventral hernia without obstruction or gangrene; G47.00 Insomnia, unspecified; Z87.19 Personal history of other diseases of the digestive system; Z93.2 Ileostomy status | CPT/HCPCS: 90471; 90677; 96127; 99202 ==

== ENCOUNTER 2024-12-24 14:17 | Outpatient (AMB) | payer MEDICARE, SELFPAY ==
--- NOTE | 2024-12-24 14:22 | HO.NEPHOV_ITS ---
Vital Signs 12/24/24 14:23 Height 5 ft 2 in Weight 160 lb 4 oz BMI 29.3 BP 130/72 Blood Pressure Location Rt brachial Position Sitting Pulse 71 Pulse Source Pulse Oximeter Pulse Oximetry (%) 98 Oxygen Delivery Method Room Air Intake Visit Reasons: MARKIE/ Conf Allergies clams Allergy (Severe, Verified 12/24/24 14:24) Stomach Upset clavulanic acid [Augmentin] Allergy (Unknown, Verified 12/24/24 14:24) GI, Difficulty breathing codeine [CODEINE] Allergy (Unknown, Verified 12/24/24 14:24) SENSITIVITY erythromycin base [Erythromycin Base] Allergy (Unknown, Verified 12/24/24 14:24) GI, DIFF BREATHING Sulfa (Sulfonamide Antibiotics) Allergy (Unknown, Verified 12/24/24 14:24) RASH morphine [MORPHINE] Adverse Reaction (Severe, Verified 12/24/24 14:24) NAUSEA aspirin [Aspirin] Adverse Reaction (Mild, Verified 12/24/24 14:24) STOMACH UPSET melatonin Adverse Reaction (Verified 12/24/24 14:24) Vomiting Medication List - Last Reconciled 12/24/24 by Jeramie Mcclain MD acetaminophen (Tylenol) 650 mg PO Q12H PRN atorvastatin 20 mg PO BEDTIME calcium carbonate-vitamin D3 600 mg-5 mcg (200 unit) (Calcium 600 + D(3)) 1 tab PO DAILY carisoprodol 350 mg PO BEDTIME carvedilol (Coreg) 6.25 mg PO BID 90 days esomeprazole magnesium (Nexium) 20 mg PO DAILY magnesium glycinate 800 mg PO DAILY mirtazapine 15 mg PO BEDTIME multivit with min-folic acid 200 mcg (Multivitamin Gummies) 1 tab PO DAILY HPI Comments Details: Paloma is a pleasant middle-aged woman with history of ileostomy. She has high output ostomy leading to dehydration and electrolyte imbalance. Recently she had acute kidney injury due to dehydration. With fluid replacement renal function has returned to baseline. She continues to have fatigue. She has mild anemia as well. She is waiting for reversal of ileostomy to be done in May. 04/25/2024. He has been catheter has been inserted. She is having the lab drawn every Monday and followed by IV fluids. She is tolerating very well. Serum creatinine has come down to 1.3. Serum electrolytes normal as of 819 PFSH Medical History Insomnia Perforated diverticulum MARKIE (acute kidney injury) MARKIE (acute kidney injury) NSVT (nonsustained ventricular tachycardia) NSTEMI (non-ST elevated myocardial infarction) Bilateral knee pain Polyarthralgia MARKIE (acute kidney injury) Back pain Arthritis History of transfusion of packed red blood cells Anemia Cardiomyopathy Anxiety Small bowel obstruction Myocardial infarction PVC (premature ventricular contraction) Hypertension Irritable bowel syndrome with constipation Barretts esophagus GERD (gastroesophageal reflux disease) Surgical History Colovesical fistula PIC line (peripherally inserted central catheter) removal History of low anterior resection of rectum S/P colostomy Status post cardiac catheterization Ileostomy in place H/O dilation and curettage History of exploratory laparotomy (05/11/23) History of esophagogastroduodenoscopy (EGD) Hx of colonoscopy Family History Father Colon cancer Congestive heart failure Paternal Aunt Colon cancer Mother Congestive heart failure Afib Social History Household Members: None Housing: House Are you a primary direct care specialist to a significant other at home: No Do you presently have visiting nurse or other home services: No Alcohol intake: never Patient Tobacco Use Status: Former Tobacco user Tobacco use type: Cigarette Cigarette Packs Per Day: 0.5 Cigarettes Per Day: 10.0 Years Smoked: 25 e-Cigarette/Vaping Use: Never Used Substance Use Type: Marijuana Advance Directives Date on File: 12/29/23 service: No Cognitive needs: No Hearing needs: No Vision needs: Yes Physical Exam Vital Signs: Last Vital Signs Pulse 71 12/24/24 14:23 BP 130/72 12/24/24 14:23 Pulse Ox 98 12/24/24 14:23 Oxygen Delivery Method Room Air 12/24/24 14:23 BMI result Body Mass Index 29.3 Const General: comfortable and no acute distress Orientation/consciousness: patient oriented x3 HEENT Other: Unremarkable Head: Yes normal to inspection Neck Neck: Yes normal visual inspection Chest Chest palpation & inspection: normal inspection of the chest Resp Auscultation: clear to auscultation bilaterally Cardio Palpation: normal PMI Heart sounds: S1 normal heart sound present, S2 normal heart sound present, no gallops, no murmurs and no rubs GI Palpation (GI): Soft to palpation Back/Spine/Pelvis Other: unremarkable Skin General skin exam: no rashes or lesions noted Neuro General: patient oriented x3 Extrem General: Yes normal to inspection Psych Mental Status: mental status grossly normal Results Reviewed Nephrology Results: Hgb 11.0 g/dl (12.0-16.0) L 09/18/24 WBC 8.0 X10*3/uL (4.8-10.8) 09/18/24 Plt Count 242 X10*3/uL (160-400) 09/18/24 Sodium 137 mmol/L (135-145) 09/18/24 Potassium 4.1 mmol/L (3.3-5.1) 09/18/24 Chloride 114 mmol/L (96-108) H 09/18/24 Carbon Dioxide 19 mmol/L (22-29) L 09/18/24 BUN 31 mg/dL (9-16) H 09/18/24 Creatinine 0.84 mg/dL (0.5-1.4) 09/18/24 Calcium 8.9 mg/dL (8.4-10.2) 09/18/24 Phosphorus 3.5 mg/dL (2.7-4.5) 09/18/24 Assessment & Plan Assessment & Plan (1) MARKIE (acute kidney injury): Code(s): N17.9 - Acute kidney failure, unspecified Category: Medical (2) Increased ileostomy output: Code(s): R19.8 - Other specified symptoms and signs involving the digestive system and abdomen; Z93.2 - Ileostomy status Category: Medical Plan Pleasant middle-aged woman with high output ileostomy and status post MARKIE due to dehydration. History of Hypokalemia and hypomagnesemia due to GI losses. Mild anemia increase fluid intake to maintain intake more than output. She will benefit from Sodium bicarb 650 mg - but unable to take Waiting for hernia surgery and knee replacement Orders: Orders Basic Metabolic Panel 6 Months R19.8 - Other specified symptoms and signs involving the digestive system and abdomen, Z93.2 - Ileostomy status Phosphorus 6 Months R19.8 - Other specified symptoms and signs involving the digestive system and abdomen, Z93.2 - Ileostomy status Magnesium 6 Months R19.8 - Other specified symptoms and signs involving the digestive system and abdomen, Z93.2 - Ileostomy status Coding Level of Care Code Est Pt Level 4 (96010) Diagnoses MARKIE (acute kidney injury) N17.9 Increased ileostomy output R19.8; Z93.2
[2024-12-24 14:23] VITALS: BP 130/72; PULSE 71; O2SAT 98; BMI 29.3
--- OUTSIDE RECORDS SUMMARY | 2024-12-24 17:09 | XMS_ITS ---
Author Organization [facility] Care Team Providers Care Furniture Manager Name Role Phone Mayur, Pippa Mcelroy Unavailable Unavailable Unique Fritz Unavailable Unavailable Joanna Webster Unavailable Unavailable Luzmaria Ruiz Unavailable Unavailable Allergies and adverse reactions Code CodeSystem Substance Reaction Severity StartDate Concern Status 356313863 SNOMED CT Sulfa Antibiotics Unknown 05/05/2020 active Shell Fish Unknown 05/05/2020 active Iodinated radio contrast dye Unknown 05/05/2020 active 5640 RXNORM Ibuprofen Unknown 05/05/2020 active 4053 RXNORM Erythromycin Unknown 05/05/2020 active Augmentin Unknown 05/05/2020 active 1191 RXNORM Aspirin Unknown 05/05/2020 active Care Team Name Role Address Phone Organization Dates Pippa Merchant PCP [address] [place] [address], [facility] (Office): : [facility] 05/05/2020 - 05/07/2020 Unique Fritz Attending Physician [address] [place] [address], [facility] (Office): : [facility] 05/05/2020 - 05/07/2020 Joanna Webster Attending Physician [address] [place] [address], [facility] (Office): : [facility] 05/05/2020 - 05/07/2020 Luzmaria Ruiz Attending Physician [address] [place] [address], [address], [place] (Office): : [facility] 05/05/2020 - 05/07/2020 Goals [...] 1 PAIN IN RIGHT LOWER LEG 05/06/[address] active 2 ESSENTIAL (PRIMARY) HYPERTENSION 05/05/[address] active 3 GASTRO-ESOPHAGEAL REFLUX DISEASE WITHOUT ESOPHAGITIS 05/05/[address] active 4 HYPERLIPIDEMIA, UNSPECIFIED 05/05/[address] active 5 MUSCLE WEAKNESS (GENERALIZED) 05/05/[address] active 6 OTHER ABNORMALITIES OF GAIT AND MOBILITY 05/05/[address] active 7 OTHER SPECIFIED ARTHRITIS, MULTIPLE SITES 05/05/[address] active 8 PRIMARY OSTEOARTHRITIS, UNSPECIFIED SITE 05/05/[address] active 9 UNSTEADINESS ON FEET 05/05/[address] active 10 WEAKNESS 05/05/[address] active Reason for Referral No Reasons for Referral Entered Social History Social History Observation Description Start Date End Date Code Code System Current Smoking Status Tobacco smoking consumption unknown 627192060 SNOMED CT Sex Assigned At Female 1960 89756-2 [facility] Vital Signs Code Code System Vitals Name Values and Units Timing Information 9279-1 [facility] Respiratory Rate Value=16.0 Units=/m in 05/07/2020 8462-4 [facility] Blood Pressure-Diastolic Value=76 Un its=mmHg 05/07/2020 8480-6 [facility] Blood Pressure-Systolic Dpykn=218 Un its=mmHg 05/07/2020 8310-5 [facility] Body Temperature Value=97.3 Units=?? F 05/07/2020 8867-4 [facility] Heart rate Value=60.0 Units=/min 11/2019 93424-0 [facility] O2 % BldC Oximetry Value=95.0 Units= % 05/07/2020 74756-8 [facility] Pain Level Value=0.0 05/07/2020
== END 2024-12-24 14:35 | disposition home or self-care (01) ==
LOC: HO.HKA 14:18
PROVIDERS: PCP Nurse Practitioner Family; Visit Provider Internal Medicine Hypertension Specialist
DX: N17.9 Acute kidney failure, unspecified (principal); R19.8 Other specified symptoms and signs involving the digestive system and abdomen; Z93.2 Ileostomy status
CPT/HCPCS: 99214

== ENCOUNTER → 2024-12-24 14:17 | Outpatient (BNVA) | payer MEDICARE, SELFPAY | PROVIDERS: PCP Nurse Practitioner Family; Visit Provider Internal Medicine Hypertension Specialist | DX: N17.9 Acute kidney failure, unspecified (principal); R19.8 Other specified symptoms and signs involving the digestive system and abdomen; Z93.2 Ileostomy status | CPT/HCPCS: 99212 ==

== ENCOUNTER 2025-01-15 09:24 | Inpatient (IN) | payer MEDICARE, SELFPAY ==
[2025-01-15] VITALS (30 sets, daily range): BP systolic 68–135; BP diastolic 32–88; PULSE 87–106; RESP 18–33; TEMP 36.8–38.7; O2SAT 94–98; BMI 27.1
--- NOTE | ~2025-01-15 | XR_ITS ---
EXAMINATION: XR CHEST CLINICAL INFORMATION: Hypoxia , Atelactasis follow up COMPARISON: January 16, 2025. TECHNIQUE: Frontal view of the chest was obtained. FINDINGS: Patchy opacities extending from the peripheral pulmonary hilum. Blunting of the costophrenic angles bilaterally, left greater than the right side. No pneumothorax. Cardiomediastinal silhouette size is normal. Multilevel spondylosis, axial skeleton. Degenerative changes in the right shoulder with focal small calcification right supraspinatus tendon insertion region. XR/XR chest 1V IMPRESSION: Pulmonary edema and bilateral pleural effusions, worsened since prior exam. Electronically signed by: Paulie Beatty MD 01/20/2025 10:35 AM EDT
--- NOTE | ~2025-01-15 | XR_ITS ---
CLINICAL HISTORY: central line placement 1 view chest x-ray Comparison: Chest x-ray from 01/07/2024. Findings: Developing and/or new small bilateral pleural effusions with new bibasilar atelectasis and/or pneumonitis. Right IJ approach line terminates near the cavoatrial junction. Imaged mediastinum is otherwise unchanged. No pneumothorax in this portable image with exclusion of the right lung apex. Degenerative changes include imaged shoulders and AC joints. IMPRESSION: 1. Small bilateral pleural effusions with underlying bibasilar atelectasis/pneumonitis. 2. No pneumothorax in the [id number]. This document has been electronically signed by: Elvin Knight MD on 01/16/2025 22:29:03
--- NOTE | ~2025-01-15 | CT_ITS ---
EXAMINATION: CT ABDOMEN AND PELVIS WITH CONTRAST CLINICAL INFORMATION: Follow up intra-abdominal collections. COMPARISON: 01/15/2025. TECHNIQUE: Multidetector volumetric images were obtained from the superior aspect of the liver through the pubic symphysis following administration 85 mL of Omnipaque 350 intravenous contrast. Sagittal and coronal reformatted images were obtained on the technologist's workstation. Oral contrast: No This CT examination was performed using dose optimization techniques as appropriate, variously including the following: *Automated exposure control *Adjustment of mA and/or kV according to patient size (this includes techniques or standardized protocols for targeted exams where dose is matched to indication/reason for exam; i.e. extremities or head) *Use of iterative reconstruction technique FINDINGS: Previously seen extraluminal gas and fluid has become more organized in the superior mid pelvis, currently measuring 3.5 x 2.7 cm in axial plane (series 3, image 65), developing abscess suspected. A more prominent slightly more superior midline organized fluid collection/abscess has developed in the mesentery measuring approximately 4.2 x 4.6 cm axial plane (series 3, image 60). Inferior and to the right of this is a smaller organized-appearing interloop abscess measuring 3.1 cm in diameter (series 3, image 63). In the far left abdomen, an organized interloop abscess is suspected measuring approximately 2.3 x 5.2 cm (series 3, image 61). A smaller anterior interloop collection is also seen in the anterior pelvis measuring 2.1 cm in diameter. Stable small amount of ascitic fluid surrounding the liver. No developing bowel obstruction seen. Rizzo's pouch noted. Right lower quadrant loop ileostomy. Ventral inferior hernia is unchanged. Erwin catheter within the urinary bladder. Uterus and adnexal structures appear normal. Vicarious contrast excretion within the gallbladder. No suspicious renal abnormalities aside from small cysts. Stable fluid collections with small amounts of gas in the ventral abdominal wall. Small amount of anasarca have developed in the flank regions. Development of a small layering right pleural effusion, and mild consolidative opacities in the bilateral lower lobes, likely atelectasis. CT/CT abdomen pelvis w IV con IMPRESSION: 1. Complex postsurgical appearance is present. Interval development of at least 5 disorganized appearing thin peripherally enhancing fluid collections within the mid and inferior abdomen/pelvis, highly suspicious for interloop abscesses. 2. Interval development of small layering right pleural effusion and mild consolidative opacity is in the bilateral lower lobes, likely discoid atelectasis. 3. Erwin catheter within the urinary bladder. 4. Remainder of findings appears similar to the recent exam of 01/15/2025. Electronically signed by: Jb Dowell MD 01/17/2025 12:01 PM EDT
--- NOTE | ~2025-01-15 | XR_ITS ---
EXAMINATION: XR CHEST CLINICAL INFORMATION: hypxia COMPARISON: 01/20/2025, 01/16/2025. TECHNIQUE: Frontal view of the chest was obtained. FINDINGS: There is a right IJ central venous catheter in place with the tip terminating in the right atrium. This is unchanged. There is cardiac enlargement. The mediastinal and hilar contours are normal. Patchy bilateral right greater than left upper lung opacities, and patchy bibasilar opacities are present, greatest in the left lower lobe. There are tiny pleural effusions present bilaterally. A component of mild interstitial edema is suspected. There is no pneumothorax. No focal osseous or soft tissue abnormality. XR/XR chest 1V IMPRESSION: 1. No significant interval change in the appearance of cardiac enlargement, and multifocal airspace opacities and small pleural effusions right greater than left. There is a component of interstitial edema suspected. 2. Stable right central venous catheter. 3. No pneumothorax. Electronically signed by: Jb Dowell MD 01/24/2025 11:43 AM EDT
--- NOTE | ~2025-01-15 | CT_ITS ---
EXAMINATION: CT ABDOMEN PELVIS WITH IV CONTRAST HISTORY: f/u intraabdominal collections, inc leukocytosis COMPARISON: Comparison is made with the prior examination dated 01/17/2025. TECHNIQUE: CT scan of the abdomen and pelvis was performed following administration of 85 mL Omnipaque 350 using standard departmental protocol. Coronal and sagittal reformatted images were generated and reviewed. Oral contrast material was not administered at the request of the referring physician. This CT exam was performed with one or more of the following dose reduction techniques: automated exposure control, adjustment of the mA and/or kV according to patient size, use of iterative reconstruction technique. DLP: 743 mGy-cm FINDINGS: LOWER CHEST: There are small bilateral pleural effusions. The right pleural effusion is unchanged in size. The left pleural effusion is larger. There is subsegmental atelectasis at the lung bases. CARDIOVASCULATURE: The heart is normal in size. There is a new pericardial effusion measuring up to 1.5 cm in thickness. LIVER: There is a prominent subcapsular fluid collection of the right lobe with scalloping of the liver contour. No liver mass is identified. The hepatic and portal veins are patent. GALLBLADDER / BILE DUCTS: The gallbladder is unremarkable. There is no intra or extrahepatic biliary ductal dilatation. SPLEEN: The spleen is normal in size. No focal splenic lesion is identified. PANCREAS: The pancreas is unremarkable in appearance. ADRENAL GLANDS: Within normal limits. KIDNEYS/RETROPERITONEUM: No renal calculi are identified. There is no hydronephrosis. Again seen are bilateral renal cysts measuring approximately 1.5 cm in size. LYMPH NODES: No abdominal or pelvic lymphadenopathy. VASCULATURE: The abdominal aorta demonstrates atherosclerotic calcification, but is normal in caliber. MESENTERY/PERITONEUM: The previously described abdominal fluid collections appear more organized with enhancing rims. There is a 6.9 x 4.3 x 3.0 cm fluid collection in the right lateral midabdomen which may communicate with the subcapsular liver collections. There is a 3.6 x 4.1 x 4.1 cm fluid collection in the midabdomen at the level of the upper sacrum. An additional 4.1 x 2.8 x 2.4 cm fluid collection is seen in the lower pelvis just above the uterus. There is a small amount of gas in the anterior abdominal wall. STOMACH: The stomach is collapsed, limiting evaluation. SMALL BOWEL: The small bowel is normal in caliber. The right lower quadrant ileostomy is again noted. COLON: The patient is status post colectomy. APPENDIX: The appendix is surgically absent. URINARY BLADDER/PELVIC ORGANS: A small amount of gas is noted in the urinary bladder which is likely due to recent instrumentation. The uterus is unremarkable. BONES / SOFT TISSUES: The bones are intact. CT/CT abdomen pelvis w IV con IMPRESSION: 1. Subcapsular hepatic fluid collection with an enhancing rim suspicious for abscess. 2. At least 3 rim-enhancing fluid collections are identified in the abdomen and pelvis as described, suspicious for abscesses. The collection in the right lateral midabdomen may communicate with the subhepatic collection. 3. New moderate-sized pericardial effusion. 4. Small bilateral pleural effusions. The left pleural effusion is slightly larger. Electronically signed by: Rashard Saha MD 01/23/2025 02:28 PM EDT
--- NOTE | ~2025-01-15 | CT_ITS ---
EXAMINATION: CT ABDOMEN PELVIS WITH IV CONTRAST HISTORY: recent bowel resection hernia repair, abd pain/N/V COMPARISON: Comparison is made with the prior examination dated 12/29/2023. TECHNIQUE: CT scan of the abdomen and pelvis was performed following administration of 85 mL Omnipaque 350 using standard departmental protocol. Coronal and sagittal reformatted images were generated and reviewed. Oral contrast material was not administered at the request of the referring physician. This CT exam was performed with one or more of the following dose reduction techniques: automated exposure control, adjustment of the mA and/or kV according to patient size, use of iterative reconstruction technique. DLP: 515 mGy-cm FINDINGS: LOWER CHEST: The visualized lung bases are clear. There is no pleural effusion. CARDIOVASCULATURE: The heart is normal in size. There is no pericardial effusion. LIVER: The liver is normal in size and contour. No liver mass is identified. The hepatic and portal veins are patent. GALLBLADDER / BILE DUCTS: The gallbladder is unremarkable. There is no intra or extrahepatic biliary ductal dilatation. SPLEEN: The spleen is normal in size. No focal splenic lesion is identified. PANCREAS: The pancreas is unremarkable in appearance. ADRENAL GLANDS: Within normal limits. KIDNEYS/RETROPERITONEUM: No renal calculi are identified. There is no hydronephrosis. There are hypodensities in both kidneys measuring up to 10 mm in size which likely represent cysts. LYMPH NODES: No abdominal or pelvic lymphadenopathy. VASCULATURE: The abdominal aorta demonstrates atherosclerotic calcification, but is normal in caliber. MESENTERY/PERITONEUM: There is a small amount of free fluid around the liver. No masses. There are tiny bubbles of free intraperitoneal gas in the lower abdomen and pelvis. This may be related to recent surgery on 01/07/2025. STOMACH: The stomach is unremarkable. SMALL BOWEL: There is an ileostomy in the right lower quadrant. Multiple bubbles of extraluminal gas are noted in the pelvis adjacent to small bowel loops. In addition, there is a 3.0 cm collection of gas and fluid in the central pelvis, suspicious for an abscess. COLON: The colon is surgically absent. APPENDIX: The appendix is surgically absent. URINARY BLADDER/PELVIC ORGANS: The urinary bladder is collapsed, limiting evaluation. The uterus is unremarkable. BONES / SOFT TISSUES: There is fluid in the small amount of gas along the midline incision the anterior abdominal wall. The bones are intact. CT/CT abdomen pelvis w IV con IMPRESSION: Ileostomy in the right lower quadrant. Multiple bubbles of extraluminal gas in the pelvis adjacent to small bowel loops, greater than expected for a history of prior surgery on 01/07/2025. In addition, there is a 3.0 cm collection of gas and fluid in the central pelvis suspicious for an abscess. Findings were discussed with Luz Marina Garcia in the emergency room on 01/15/2025 at 11:39 AM. Electronically signed by: Rashard Saha MD 01/15/2025 11:40 AM EDT
--- NOTE | 2025-01-15 09:45 | ED.ABDPAIN ---
HPI - Abdominal Pain General Chief Complaint: Abdominal Pain Stated Complaint: WEAK,VOMITING,RECENT SURG @[facility] PER EMS Time Seen by Provider: 01/15/25 09:45 Source: patient, EMS, RN notes reviewed and old records reviewed Mode of arrival: EMS History of Present Illness ED Provider: Luz Marina Garcia PA-C HPI narrative: 64-year-old female with a past medical history MARKIE, NSTEMI, cardiomyopathy, anemia, anxiety, NM, HTN, IBS, GERD, ileostomy, s/p colon resection and hernia repair on 01/07/25 @[facility] by Dr. Kadeem Lehman, presenting to the ED via EMS complaining of abdominal pain, nausea, vomiting and inability to tolerate p.o. since yesterday. Denies fever, chills, dysuria/hematuria, diarrhea, constipation. Related Data Home Medications ?Medication ?Instructions ?Recorded ?Confirmed calcium 600 mg (as 1 tab PO DAILY 11/30/23 01/15/25 carbonate)-vitamin D3 5 mcg (200 unit) tablet (Calcium 600 + D(3)) mirtazapine 15 mg tablet 15 mg PO BEDTIME 11/30/23 01/15/25 acetaminophen 325 mg tablet 650 mg PO Q12H PRN Pain 01/07/24 01/15/25 (Tylenol) multivitamin with minerals-folic 1 tab PO DAILY 01/07/24 01/15/25 acid 200 mcg chewable tablet (Multivitamin Gummies) carisoprodol 350 mg tablet 350 mg PO BEDTIME 03/19/24 01/15/25 magnesium glycinate 800 mg PO DAILY 03/19/24 01/15/25 B-complex with vitamin C 1 tab PO DAILY 01/15/25 01/15/25 fluticasone propionate 50 1 spray intranasal DAILY 01/15/25 01/15/25 mcg/actuation nasal spray,suspension hydrochlorothiazide 25 mg tablet 25 mg PO DAILY 01/15/25 01/15/25 hydromorphone 2 mg tablet 2 - 4 mg PO Q3H PRN pain 01/15/25 01/15/25 ibuprofen 200 mg tablet 400 mg PO Q6H PRN Pain 01/15/25 01/15/25 losartan 25 mg tablet 25 mg PO DAILY 01/15/25 01/15/25 ondansetron 4 mg disintegrating 4 mg PO Q8H PRN Nausea And Vomiting 01/15/25 01/15/25 tablet potassium chloride 10 mEq 10 meq PO DAILY 01/15/25 01/15/25 tablet,extended release Previous Rx's ?Medication ?Instructions ?Recorded esomeprazole magnesium 20 mg 20 mg PO DAILY #30 caps 01/16/24 capsule,delayed release (Nexium) carvedilol 6.25 mg tablet (Coreg) 6.25 mg PO BID 90 days #180 tabs 10/17/24 atorvastatin 20 mg tablet 20 mg PO BEDTIME #90 tabs 11/04/24 Allergies Allergy/AdvReac Type Severity Reaction Status Date / Time clams Allergy Severe Stomach Verified 01/15/25 09:33 Upset clavulanic acid [Augmentin] Allergy Unknown GI, Verified 01/15/25 09:33 Difficulty breathing codeine [CODEINE] Allergy Unknown SENSITIVIT Verified 01/15/25 09:33 Y erythromycin base Allergy Unknown GI, DIFF Verified 01/15/25 09:33 [Erythromycin Base] BREATHING Sulfa (Sulfonamide Allergy Unknown RASH Verified 01/15/25 09:33 Antibiotics) morphine [MORPHINE] AdvReac Severe NAUSEA Verified 01/15/25 09:33 aspirin [Aspirin] AdvReac Mild STOMACH Verified 01/15/25 09:33 UPSET melatonin AdvReac Vomiting Verified 01/15/25 09:33 Review of Systems Review of Systems Yes all other systems are reviewed and are negative Constitutional: Reports as per [facility] Past Medical History Attestation statement: The following information was validated with the patient. Source: old records reviewed Medical History Insomnia Bilateral knee pain Polyarthralgia MARKIE (acute kidney injury) Back pain Arthritis History of transfusion of packed red blood cells Anemia Cardiomyopathy MARKIE (acute kidney injury) MARKIE (acute kidney injury) Anxiety Small bowel obstruction Myocardial infarction NSTEMI (non-ST elevated myocardial infarction) NSVT (nonsustained ventricular tachycardia) PVC (premature ventricular contraction) Hypertension Perforated diverticulum Irritable bowel syndrome with constipation Barretts esophagus GERD (gastroesophageal reflux disease) Surgical History S/P colon resection PIC line (peripherally inserted central catheter) removal History of low anterior resection of rectum Status post cardiac catheterization Ileostomy in place H/O dilation and curettage History of exploratory laparotomy (05/11/23) S/P colostomy Colovesical fistula History of esophagogastroduodenoscopy (EGD) Hx of colonoscopy Family History Family History Father Colon cancer Congestive heart failure Paternal Aunt Colon cancer Mother Congestive heart failure Afib Social History Social History Household Members: None Housing: House Are you a primary career technical supervisor to a significant other at home: No Do you presently have visiting nurse or other home services: Yes ([facility]) Alcohol intake: never Patient Tobacco Use Status: Former Tobacco user Tobacco use type: Cigarette Cigarette Packs Per Day: 0.5 Cigarettes Per Day: 10.0 Years Smoked: 25 Smoked in Last 30 Days: No e-Cigarette/Vaping Use: Former Use Patient Interested in Nicotine Replacement: No Patient Given Instructions on How to Stop Smoking: No Second Hand Smoke Exposure: No Substance Use Type: Marijuana Have you been hit, kicked, punched, or otherwise hurt by someone within the past year? If so, by whom?: No Do you feel safe in your current relationship?: No Current Relationship Is there a partner from a previous relationship who is making you feel unsafe now?: No Are you made to feel afraid or neglected: No Spiritual Healthcare Practices: none Advance Directives: Yes Advance Directives Information Provided: No Advance Directives on File: Yes Advance Directives Date on File: 12/29/23 Do you have a plan to hurt others: No Plan Recently lost weight without trying: No Eating poorly because of decreased appetite: Yes Nutrition Risks: Acute nausea or vomiting x1 week Patient : No : No Poor oral hygiene: No service: No Cognitive needs: No Hearing needs: No Vision needs: Yes Physical Exam ED Vital Signs: Vital Signs - 24 hr 01/15/25 09:30 01/15/25 10:50 01/15/25 11:16 Temperature 98.2 F 98.8 F Pulse Rate 106 H 102 H Respiratory Rate 18 18 Blood Pressure 135/73 103/57 L 91/41 L Pulse Oximetry 95 96 Oxygen Delivery Method Room Air Room Air 01/15/25 11:44 01/15/25 12:16 01/15/25 12:39 Temperature 98.3 F 101.6 F H Pulse Rate 94 94 Respiratory Rate 24 H 29 H Blood Pressure 86/49 L 90/60 96/41 L Pulse Oximetry 94 95 Oxygen Delivery Method Room Air Room Air 01/15/25 12:55 01/15/25 13:03 01/15/25 13:22 Temperature 100.2 F Pulse Rate 89 87 Respiratory Rate 30 H 26 H Blood Pressure 77/37 L 87/39 L 74/33 L Pulse Oximetry 97 96 Oxygen Delivery Method Room Air Room Air 01/15/25 13:31 01/15/25 13:42 01/15/25 13:47 Temperature Pulse Rate 92 89 90 Respiratory Rate Blood Pressure 68/32 L 80/50 L 84/47 L Pulse Oximetry Oxygen Delivery Method 01/15/25 13:49 01/15/25 14:00 Temperature Pulse Rate 93 Respiratory Rate Blood Pressure 102/53 L 93/56 L Pulse Oximetry Oxygen Delivery Method BMI result Body Mass Index 27.1 Const General: cooperative, healthy appearing and no acute distress Orientation/consciousness: patient oriented x3 Limitations: no limitations HENMT Head: Yes normal to inspection and Yes atraumatic Ears: hearing grossly normal bilaterally General nose exam: Normal external nose present Face and sinus: Yes normal facial exam Eyes General: appearance normal, both eyes and all related structures EOM: EOMs intact bilaterally Neck Neck: Yes normal visual inspection and Yes no meningeal signs Resp Effort & Inspection: normal respiratory effort and no respiratory distress Auscultation: clear to auscultation bilaterally Cardio Rate: regular rate Heart sounds: S1 normal heart sound present and S2 normal heart sound present GI Other: Surgical scars noted without surrounding erythema/warmth or drainage. No dehiscence. Ileostomy noted to RLQ Palpation (GI): Soft to palpation, Tenderness to palpation present (GI) (Diffusely) with no rebound tenderness, no guarding and not rigid General: Yes no CVA tenderness Back/Spine/Pelvis Back: no CVA tenderness Skin Rashes: no rashes Wounds: no wounds Neuro General: patient oriented x3, tone normal and no meningeal signs Cranial nerves: Yes CN's II-XII intact bilaterally Gait exam (Neuro): Normal gait present Extrem General: Yes normal to inspection Course Course Course Narrative: -leukocytosis of 15.3 with left shift. H/H stable. > empiric cefepime ordered -BUN chronically elevated. Lactic acid elevated to 2.3 -lipase elevated to 112 -1145--CT abdomen pelvis w IV con IMPRESSION: Ileostomy in the right lower quadrant. Multiple bubbles of extraluminal gas in the pelvis adjacent to small bowel loops, greater than expected for a history of prior surgery on 01/07/2025. In addition, there is a 3.0 cm collection of gas and fluid in the central pelvis suspicious for an abscess. Findings were discussed with Luz Marina Garcia in the emergency room on 01/15/2025 at 11:39 AM. > will consult patient's surgeon -BP dropping, now 86/49 > 30 mg/kg sepsis fluids ordered. will monitor closely. 2nd US guided IV line placed -Dr. Alexandra aware and at bedside > patient absolutely refusing to go back to [facility], states if she is having any procedure or surgery that it will be done here. Dr. Oneil consulted [1210] -1214--spoke with Dr. Lehman recommended IVF, IV antibiotics, and admission. Is happy to take patient as transfer if she is agreeable/transfer needed, but does not recommend surgical intervention at this time -Dr. Oneil evaluated patient in the ED -patient persistently hypotensive, additional IVF and IV albumin ordered >> despite additional intervention initiate norepi drip and discuss case with cdl instructor, Dr. East [id number]--Focus exam performed > patient accepted to the ICU Medical Decision Making Medical Decision Making MDM Narrative: 64-year-old female with a past medical history MARKEI, NSTEMI, cardiomyopathy, anemia, anxiety, NM, HTN, IBS, GERD, ileostomy, s/p colon resection and hernia repair on 01/07/25 @[facility] by Dr. Kadeem Lehman, presenting to the ED via EMS complaining of abdominal pain, nausea, vomiting and inability to tolerate p.o. since yesterday. On exam tachycardic, appears uncomfortable, abdomen is soft, diffusely tender, no rebound or guarding, surgical scars noted without acute cellulitis/dehiscence or abscess formation. Concern for postsurgical complication vs SBO vs diverticulitis/colitis or appendicitis. Lower suspicion for acute cholecystitis/lithiasis or pancreatitis at this time. Rule out metabolic abnormalities. Low suspicion for severe sepsis [10:01] Plan: Labs, UA, lactic/blood cultures, CT AP, IVF, pain control, antiemetic, re-evaluate Please refer to course for remaining clinical decision making, interpretation of labs/imaging results, and discussions with consultants and/or family members. Differential Diagnosis Differential Diagnoses: The differential diagnosis associated with the presentation includes As above Admission/Observation Consideration of admission/observation: Escalation of care including admission/observation considered Consult Healthcare Provider Management of the patient was discussed with: Derrick Follower Lab Data MDM Lab Attestation statement: I reviewed the patient's lab results. 01/15/25 09:58 01/15/25 09:58 Labs: Lab Results 01/15/25 01/15/25 Range/Units 09:58 12:31 WBC 15.3 H (4.8-10.8) X10*3/uL RBC 3.83 L (4.20-5.50) X10*6/uL Hgb 11.0 L (12.0-16.0) g/dl Hct 34.1 L (37.0-47.0) % MCV 89.0 (80.0-98.0) fL MCH 28.7 (27.0-33.0) pg MCHC 32.3 (31.0-35.0) g/dl RDW 13.1 (11.0-16.0) % Plt Count 451 H D (160-400) X10*3/uL MPV 9.0 L (9.4-12.3) fL Immature Gran % (Auto) 2.1 H (0.0-0.4) % Neut % (Auto) 79.3 H (45-73) % Lymph % (Auto) 13.6 L (20-40) % [place] % (Auto) 3.9 (2-11) % Eos % (Auto) 0.7 (0-4) % Baso % (Auto) 0.4 (0-2) % Lymph # (Auto) 2.1 (1.2-4.9) X10*3/uL [place] # (Auto) 0.6 (0.1-1.2) X10*3/uL Eos # (Auto) 0.1 (0.0-0.4) X10*3/uL Baso # (Auto) 0.1 (0.0-0.2) X10*3/uL Abs Immat Gran (auto) 0.32 H (0.00-0.03) X10*3/uL Absolute Neuts (auto) 12.1 H (2.0-8.3) x10*3/uL Absolute Nucleated RBC 0.030 H (0.0-0.012) X10*3/uL Nucleated RBC % (auto) 0.2 (0.0-0.2) /100WBC Smear Tech's Comments VERIFIED Sodium 132 L (135-145) mmol/L Potassium 4.1 (3.3-5.1) mmol/L Chloride 90 L D (96-108) mmol/L Carbon Dioxide 27 (22-29) mmol/L Anion Gap 19 (12-20) BUN 25 H (9-16) mg/dL Creatinine 1.16 (0.5-1.4) mg/dL Estim Creat Clear Calc 43.4 Estimated GFR 47 Random Glucose 147 H (60-115) mg/dL Lactic Acid 2.3 H* (0.5-2.0) mmol/L Lactic Acid F/U @ 2Hr 1.6 (0.5-2.0) mmol/L Calcium 8.3 L D (8.4-10.2) mg/dL Magnesium 1.9 (1.6-2.6) mg/dL Total Bilirubin 0.6 (0.0-1.0) mg/dL AST 41 H (5-31) U/L ALT 6 (0-31) U/L Alkaline Phosphatase 163 H (39-117) U/L Total Protein 8.9 H (6.5-8.0) g/dL Albumin 3.2 L (3.5-5.0) g/dL Lipase 112 H (8-78) U/L Influenza Type A (PCR) NEGATIVE (Negative) Influenza Type B (PCR) NEGATIVE (Negative) RSV RNA Qual (PCR) NEGATIVE (Negative) SARS-CoV-2 RNA (RT-PCR) NEGATIVE (Negative) Independent Interpretation I performed an independent interpretation of an: CT Scan Radiology Impression Discussion of test interpretation with radiology: I have reviewed the radiologist's reading. Independent Historian Clinical information obtained from an independent historian. History obtained from or confirmed by: EMS External Record Review External record reviewed: Inpatient record, Office record, Outpatient record, Prior outpatient labs, Prior outpatient radiology, Primary care record and Outside ED record Tests considered The following testing was considered but not selected: As above Prescription Management I considered prescription management with: Pain Medication and Antibiotic Chronic Conditions Patient?s care impacted by: Hypertension and Other (Ileostomy) Social Determinants Patient?s care significantly limited by Social Determinants of Health including: Other Social Determinant of Health Medications Administered Generic Name Dose Route Start Last Admin Trade Name Freq PRN Reason Stop Dose Admin Fentanyl 100 mcg 01/15/25 15:46 01/15/25 16:03 Fentanyl Citrate/Pf 100 Mcg/2 Ml Vial IVPUSH 100 mcg Q2H PRN Administration Pain, Severe (Pain Scale 7-10) Protocol Heparin Sodium (Porcine) 5,000 unit 01/15/25 14:15 01/15/25 15:05 Heparin Sodium,Porcine 5,000 Unit/Ml Vial SUBCUT 5,000 unit Q8H ARISTIDES Administration Norepinephrine Bitartrate 8 mg in 250 mls @ 0 mls/hr 01/15/25 13:30 01/15/25 14:51 Levophed IVCONT 0.15 mcg/kg/min .Q0M ARISTIDES 18.9 mls/hr Titration Protocol Per Protocol Piperacillin Sod/Tazobactam 50 mls @ 100 mls/hr 01/15/25 16:00 01/15/25 17:24 Sod 3.375 gm/ Sodium Chloride IV Infused Q6H ARISTIDES Infusion Ondansetron HCl 4 mg 01/15/25 15:09 01/15/25 15:12 Ondansetron Hcl 4 Mg/2 Ml Vial IVPUSH 4 mg Q6H PRN Administration Nausea and Vomiting Discontinued Medications Generic Name Dose Route Start Last Admin Trade Name Freq PRN Reason Stop Dose Admin Fentanyl 25 mcg 01/15/25 11:52 01/15/25 12:03 Fentanyl Citrate/Pf 100 Mcg/2 Ml Vial IVPUSH 01/15/25 11:53 25 mcg ONCE ONE Administration Protocol Fentanyl 50 mcg 01/15/25 14:03 01/15/25 14:17 Fentanyl Citrate/Pf 100 Mcg/2 Ml Vial IVPUSH 01/15/25 14:04 50 mcg ONCE ONE Administration Protocol Sodium Chloride 1,000 mls @ 999 mls/hr 01/15/25 10:00 01/15/25 11:00 Ns IV 01/15/25 11:00 Infused .Q1H1M ARISTIDES Infusion Acetaminophen 1,000 mg in 100 mls @ 400 mls/hr 01/15/25 09:53 01/15/25 10:19 Ofirmev IV 01/15/25 10:07 Infused ONCE ONE Infusion Cefepime HCl 2 gm in 50 mls @ 100 mls/hr 01/15/25 10:24 01/15/25 11:04 Maxipime IV 01/15/25 10:53 Infused ONCE ONE Infusion Sodium Chloride 1,000 mls @ 999 mls/hr 01/15/25 12:00 01/15/25 12:54 Ns IV 01/15/25 13:00 Infused .Q1H1M ARISTIDES Infusion Sodium Chloride 500 mls @ 999 mls/hr 01/15/25 12:00 01/15/25 12:54 Ns IV 01/15/25 12:30 Infused .Q31M ARISTIDES Infusion Sodium Chloride 500 mls @ 999 mls/hr 01/15/25 13:00 01/15/25 13:25 Ns IV 01/15/25 13:30 Infused .Q31M ARISTIDES Infusion Albumin Human 50 mls @ 100 mls/hr 01/15/25 12:57 01/15/25 13:31 Kedbumin 25 % IV 01/15/25 13:26 Infused ONCE ONE Infusion Metronidazole 500 mg in 100 mls @ 100 mls/hr 01/15/25 14:01 01/15/25 15:09 Flagyl IV 01/15/25 15:00 Infused ONCE ONE Infusion Lactated Ringer's 1,000 mls @ 999 mls/hr 01/15/25 14:15 01/15/25 17:24 Lr IV 01/15/25 15:15 Infused .Q1H1M ARISTIDES Infusion Lactated Ringer's 1,000 mls @ 999 mls/hr 01/15/25 14:15 01/15/25 17:24 Lr IV 01/15/25 15:15 Infused .Q1H1M ARISTIDES Infusion Iohexol 100 ml 01/15/25 11:08 01/15/25 11:09 Iohexol 350 Mg/Ml 100 Ml Infus..Btl IV 01/15/25 11:09 85 ml ONCE ONE Administration Ketorolac Tromethamine 15 mg 01/15/25 12:16 01/15/25 12:20 Ketorolac Tromethamine 15 Mg/Ml Vial IVPUSH 01/15/25 12:17 15 mg ONCE ONE Administration Ondansetron HCl 4 mg 01/15/25 09:53 01/15/25 10:04 Ondansetron Hcl 4 Mg/2 Ml Vial IVPUSH 01/15/25 09:54 4 mg ONCE ONE Administration Critical Care Time Critical Care Time Critical Care Time: Yes Total Critical Care Time: 65 Attestation: I have personally provided critical care time exclusive of time spent on separately billable procedures. Time includes review of lab data, radiology results, discussion with consultants, and monitoring for potential decompensation. Intervention performed as documented. Discharge Plan Discharge Clinical Impression: Postoperative complication, Abscess of female pelvis Hypotension Qualifiers: Hypotension type: unspecified hypotension type Qualified Code(s): I95.9 - Hypotension, unspecified Patient Disposition: Admitted As Inpatient Interventions: Admission Worksheet (ED) Last Done: 01/15/25 15:40 Discharge Date/Time: 01/15/25 15:40
[2025-01-15] MEDS: ondansetron HCL 4 MG/2 ML VIAL IVPUSH ×4 (10:04→23:14)
[2025-01-15] MEDS: 0.9 % Sodium Chloride 1,000 ML 999 ML IV ×2 (10:04→12:04)
[2025-01-15] MEDS: Acetaminophen 1,000 MG/100 ML PIGGYBACK 400 MG IV ×2 (10:04→22:08)
[2025-01-15 10:11] LABS: Basophils Absolute Auto 0.1 X10*3/uL (0.0-0.2); Basophils Percent Auto 0.4 % (0-2); Eosinophils Absolute Auto 0.1 X10*3/uL (0.0-0.4); Eosinophils Percent Auto 0.7 % (0-4); Hematocrit 34.1 % (37.0-47.0); Imm Gran Abs Auto 0.32 X10*3/uL (0.00-0.03); Imm Gran Pct Auto 2.1 % (0.0-0.4); Lymphocytes Absolute Auto 2.1 X10*3/uL (1.2-4.9); Lymphocytes Percent Auto 13.6 % (20-40); MANUAL DIFF FLAG SCAN; Mean Corpuscular HGB Conc 32.3 g/dl (31.0-35.0); Mean Corpuscular Hemoglobin 28.7 pg (27.0-33.0); Monocytes Absolute Auto 0.6 X10*3/uL (0.1-1.2); Monocytes Percent Auto 3.9 % (2-11); NRBC Pct Auto 0.2 /100WBC (0.0-0.2); Neutrophils Absolute Auto 12.1 x10*3/uL (2.0-8.3); Neutrophils Percent Auto 79.3 % (45-73); Platelet Count 451 X10*3/uL (160-400); Red Blood Count 3.83 X10*6/uL (4.20-5.50); Red Cell Distribution Width 13.1 % (11.0-16.0); SCAN SMEAR FLAG 1; White Blood Count 15.3 X10*3/uL (4.8-10.8)
[2025-01-15 10:22] LABS: Lipase 112 U/L (8-78); Magnesium 1.9 mg/dL (1.6-2.6)
[2025-01-15 10:26] LABS: Alanine Aminotransferase 6 U/L (0-31); Albumin Level 3.2 g/dL (3.5-5.0); Alkaline Phosphatase 163 U/L (39-117); Anion Gap 19 (12-20); Aspartate Amino Transferase 41 U/L (5-31); Bilirubin Total 0.6 mg/dL (0.0-1.0); Blood Urea Nitrogen 25 mg/dL (9-16); Calcium 8.3 mg/dL (8.4-10.2); Carbon Dioxide 27 mmol/L (22-29); Chloride 90 mmol/L (96-108); Creatinine Clr Calc Pharmacy 43.4; Estimated Glomerular Filt Rate 47; Glucose Random 147 mg/dL (60-115); Potassium 4.1 mmol/L (3.3-5.1); Sodium 132 mmol/L (135-145); Total Protein 8.9 g/dL (6.5-8.0)
[2025-01-15 10:31] LABS: Lactic Acid 2.3 mmol/L (0.5-2.0)
[2025-01-15] MEDS: cefEPime HCl/D5W 2 GM/50 ML PIGGYBACK IV (10:34)
[2025-01-15 10:54] LABS: Influenza A PCR NEGATIVE (Negative); Influenza B PCR NEGATIVE (Negative); Resp Syncy Virus RNA Qual PCR NEGATIVE (Negative); SARS COV2 PCR INHOUSE NEGATIVE (Negative); SLIDE REVIEW VERIFIED
[2025-01-15] MEDS: iohexoL 350 MG/ML 100 ML INFUS..BTL IV (11:09)
[2025-01-15 12:03] LABS: Reflex Lactate? Lactic Acid Added
[2025-01-15] MEDS: fentaNYL citrate/PF 100 MCG/2 ML VIAL 25 MCG IVPUSH (12:03)
[2025-01-15] MEDS: 0.9 % Sodium Chloride 500 ML 999 ML IV ×2 (12:04→13:02)
[2025-01-15] MEDS: Ketorolac Tromethamine 15 MG/ML VIAL IVPUSH (12:20)
--- NOTE | 2025-01-15 12:25 | PC.NURSE ---
After first liter of fluids completed, pt became hypotensive. Started another 1.5L of NS. Second ultrasound guided IV placed. Rectal temp of 101.6. Medicated per MAR
--- NOTE | 2025-01-15 12:54 | PC.NURSE ---
patient completed fluids, remains hypotensive 77/37. verbal order from provider for additional 500mL - being infused with pressure bag.
[2025-01-15] MEDS: Albumin Human 25 % 50 ML 100 ML IV (13:01)
[2025-01-15 13:06] LABS: ~Lactic Acid-LAB USE ONLY 1.6 mmol/L (0.5-2.0)
--- NOTE | 2025-01-15 13:20 | PC.NURSE ---
patient continues to be hypotensive w/ additional 500mL of fluids and albumin given. rectal temp probe in place - 100.2. continues to complain of pain, states pain is best when she does not move. also reporting that her nausea has improved.
[2025-01-15] MEDS: Norepinephrine Bitartrate/D5W 8 MG/250 ML PLAST..BAG 6.3 MG IVCONT (13:31)
--- NOTE | 2025-01-15 13:33 | PC.NURSE ---
patient started on levo, 68/35. infusing 0.05
[2025-01-15] MEDS: metroNIDAZOLE/NS 500 MG/100 ML PIGGYBACK 100 MG IV (14:08)
[2025-01-15] MEDS: Lactated Ringers 1,000 ML 999 ML IV ×2 (14:09)
--- NOTE | 2025-01-15 14:13 | P.CONGS_ITS ---
History of Present Illness Consult details Consult date: 01/15/25 Requesting physician: Luz Marina Garcia Narrative: 64-year-old female patient returning to the ED with complaints of severe abdominal pain, nausea, vomiting since yesterday. She is well known to the service with a past medical history of MARKIE, non STEMI, cardiomyopathy, anemia, anxiety, AL, hypertension, IBS, GERD, status post sigmoid colectomy with a Tye procedure for perforated sigmoid diverticulitis and colo vaginal fistula. She underwent the closure colostomy and has a right lower quadrant ileostomy which is functioning. Patient had a complicated surgical history was eventually [place] [facility] [place] Kadeem Lehman[place] She underwent a subtotal colectomy and incisional hernia repair on [place]/07/20[place] [facility] [place] was discharged earlier this week. She began to develop increased abdominal pain starting yesterday with the associated nausea and vomiting and subsequently presented to the emergency department this morning. In the emergency department she was found to be hypotensive with a WBC of 15.3 and lactic acid of 2.3. She was given IV boluses, blood cultures were sent and she was started on IV antibiotics (ceftriaxone). A CT of the abdomen and pelvis showed multiple bubbles of extraluminal gas in the pelvis adjacent to the small bowel loops, with a 3 cm collection of gas and fluid in the central pelvis suspicious for an abscess. The patient was given an opportunity to returned [place] [facility] [place] refused transfer. She is being admitted to the ICU service for further management of her hypotension. Review of Systems 2 Constitutional: Constitutional: Reports anorexia, Reports chills, Reports fatigue and Reports fever(s) Cardiovascular: Cardiovascular: Denies chest pain, Denies irregular heart rhythm, Reports dyspnea and Reports orthopnea Respiratory: Respiratory: Denies chest congestion, Denies cough and Reports dyspnea Gastrointestinal: Gastrointestinal: Reports abdominal pain, Reports bloating, Reports nausea and Reports vomiting Psychiatric: Psychiatric: Reports anxiety Endocrine: Endocrine: Reports fatigue PMFSH Past Medical History Medical History Insomnia Bilateral knee pain Polyarthralgia MARKIE (acute kidney injury) Back pain Arthritis History of transfusion of packed red blood cells Anemia Cardiomyopathy MARKIE (acute kidney injury) MARKIE (acute kidney injury) Anxiety Small bowel obstruction Myocardial infarction NSTEMI (non-ST elevated myocardial infarction) NSVT (nonsustained ventricular tachycardia) PVC (premature ventricular contraction) Hypertension Perforated diverticulum Irritable bowel syndrome with constipation Barretts esophagus GERD (gastroesophageal reflux disease) Family History Family History Father Colon cancer Congestive heart failure Paternal Aunt Colon cancer Mother Congestive heart failure Afib Surgical History Surgical History S/P colon resection PIC line (peripherally inserted central catheter) removal History of low anterior resection of rectum Status post cardiac catheterization Ileostomy in place H/O dilation and curettage History of exploratory laparotomy (05/11/23) S/P colostomy Colovesical fistula History of esophagogastroduodenoscopy (EGD) Hx of colonoscopy Social History Social History Household Members: None Housing: House Are you a primary school childcare attendant to a significant other at home: No Do you presently have visiting nurse or other home services: Yes ([facility]) Alcohol intake: never Patient Tobacco Use Status: Former Tobacco user Tobacco use type: Cigarette Cigarette Packs Per Day: 0.5 Cigarettes Per Day: 10.0 Years Smoked: 25 Smoked in Last 30 Days: No e-Cigarette/Vaping Use: Former Use Patient Interested in Nicotine Replacement: No Patient Given Instructions on How to Stop Smoking: No Second Hand Smoke Exposure: No Substance Use Type: Marijuana Currently Displaying Signs/Symptoms of Drug Intoxication Withdrawal: No Have you been hit, kicked, punched, or otherwise hurt by someone within the past year? If so, by whom?: No Do you feel safe in your current relationship?: No Current Relationship Is there a partner from a previous relationship who is making you feel unsafe now?: No Are you made to feel afraid or neglected: No Spiritual Healthcare Practices: none Advance Directives: Yes Advance Directives Information Provided: No Advance Directives on File: Yes Advance Directives Date on File: 12/29/23 Do you have a plan to hurt others: No Plan Recently lost weight without trying: No Eating poorly because of decreased appetite: Yes Nutrition Risks: Acute nausea or vomiting x1 week Patient : No : No Poor oral hygiene: No service: No Cognitive needs: No Hearing needs: No Vision needs: Yes Meds Allergies Allergy/AdvReac Type Severity Reaction Status Date / Time clams Allergy Severe Stomach Verified 01/15/25 09:33 Upset clavulanic acid [Augmentin] Allergy Unknown GI, Verified 01/15/25 09:33 Difficulty breathing codeine [CODEINE] Allergy Unknown SENSITIVIT Verified 01/15/25 09:33 Y erythromycin base Allergy Unknown GI, DIFF Verified 01/15/25 09:33 [Erythromycin Base] BREATHING Sulfa (Sulfonamide Allergy Unknown RASH Verified 01/15/25 09:33 Antibiotics) morphine [MORPHINE] AdvReac Severe NAUSEA Verified 01/15/25 09:33 aspirin [Aspirin] AdvReac Mild STOMACH Verified 01/15/25 09:33 UPSET melatonin AdvReac Vomiting Verified 01/15/25 09:33 Active Medications: Current Medications Heparin Sodium (Porcine) (Heparin Sodium,Porcine 5,000 Unit/Ml Vial) 5,000 unit SUBCUT Q8H [facility] Norepinephrine Bitartrate (Levophed) 8 mg in 250 mls @ 0 mls/hr IVCONT .Q0M [facility]; Protocol Last Titration: 01/15/25 14:00 Dose: 0.11 mcg/kg/min, 13.86 mls/hr Metronidazole (Flagyl) 500 mg in 100 mls @ 100 mls/hr IV ONCE ONE Stop: 01/15/25 15:00 Lactated Ringer's (Lr) 1,000 mls @ 999 mls/hr IV .Q1H1M [facility] Stop: 01/15/25 15:15 Lactated Ringer's (Lr) 1,000 mls @ 999 mls/hr IV .Q1H1M [facility] Stop: 01/15/25 15:15 Home Medications ?Medication ?Instructions ?Recorded ?Confirmed ?Last Taken ?Type calcium 600 mg (as 1 tab PO DAILY 11/30/23 01/15/25 03/19/24 09:00 History carbonate)-vitamin D3 5 mcg (200 unit) tablet (Calcium 600 + D(3)) mirtazapine 15 mg tablet 15 mg PO BEDTIME 11/30/23 01/15/25 03/19/24 09:00 History acetaminophen 325 mg tablet 650 mg PO Q12H PRN Pain 01/07/24 01/15/25 03/19/24 09:00 History (Tylenol) multivitamin with minerals-folic 1 tab PO DAILY 01/07/24 01/15/25 03/19/24 09:00 History acid 200 mcg chewable tablet (Multivitamin Gummies) carisoprodol 350 mg tablet 350 mg PO BEDTIME 03/19/24 01/15/25 03/19/24 09:00 History magnesium glycinate 800 mg PO DAILY 03/19/24 01/15/25 03/19/24 09:00 History B-complex with vitamin C 1 tab PO DAILY 01/15/25 01/15/25 Unknown History fluticasone propionate 50 1 spray intranasal DAILY 01/15/25 01/15/25 Unknown History mcg/actuation nasal spray,suspension hydrochlorothiazide 25 mg tablet 25 mg PO DAILY 01/15/25 01/15/25 Unknown History hydromorphone 2 mg tablet 2 - 4 mg PO Q3H PRN pain 01/15/25 01/15/25 Unknown History ibuprofen 200 mg tablet 400 mg PO Q6H PRN Pain 01/15/25 01/15/25 Unknown History losartan 25 mg tablet 25 mg PO DAILY 01/15/25 01/15/25 Unknown History ondansetron 4 mg disintegrating 4 mg PO Q8H PRN Nausea And Vomiting 01/15/25 01/15/25 Unknown History tablet potassium chloride 10 mEq 10 meq PO DAILY 01/15/25 01/15/25 Unknown History tablet,extended release Physical Exam 2 Vital Signs: Vital Signs: Last Vital Signs Temp 100.2 F 01/15/25 13:22 Pulse 93 01/15/25 14:00 Resp 26 H 01/15/25 13:22 BP 93/56 L 01/15/25 14:00 Pulse Ox 96 01/15/25 13:22 O2 Del Method Room Air 01/15/25 13:22 BMI result Body Mass Index 27.1 Const: General: anxious and ill appearing Nutritional Appearance: well nourished Orientation/consciousness: patient oriented x3 Eyes: Sclerae: sclerae normal EOM: EOMs intact bilaterally Resp: Effort & Inspection: no audible wheezes, no cough and no respiratory distress Auscultation: clear to auscultation bilaterally GI: Other: Well-healed lower midline incision without erythema or drainage. Ostomy in the right lower quadrant is patent and functioning Palpation (GI): Soft to palpation and Tenderness to palpation present (GI) in the LLQ, in the RLQ, in the LUQ and in the RUQ Skin: Other: Warm, dry, no rashes Neuro: General: patient oriented x3 Extrem: Other: Brisk capillary refill, no edema Results Labs 01/16/25 04:54 01/16/25 04:54 Labs: Abnormal lab results 01/15/25 Range/Units 09:58 WBC 15.3 H (4.8-10.8) X10*3/uL RBC 3.83 L (4.20-5.50) X10*6/uL Hgb 11.0 L (12.0-16.0) g/dl Hct 34.1 L (37.0-47.0) % Plt Count 451 H D (160-400) X10*3/uL MPV 9.0 L (9.4-12.3) fL Immature Gran % (Auto) 2.1 H (0.0-0.4) % Neut % (Auto) 79.3 H (45-73) % Lymph % (Auto) 13.6 L (20-40) % Abs Immat Gran (auto) 0.32 H (0.00-0.03) X10*3/uL Absolute Neuts (auto) 12.1 H (2.0-8.3) x10*3/uL Absolute Nucleated RBC 0.030 H (0.0-0.012) X10*3/uL Sodium 132 L (135-145) mmol/L Chloride 90 L D (96-108) mmol/L BUN 25 H (9-16) mg/dL Random Glucose 147 H (60-115) mg/dL Lactic Acid 2.3 H* (0.5-2.0) mmol/L Calcium 8.3 L D (8.4-10.2) mg/dL AST 41 H (5-31) U/L Alkaline Phosphatase 163 H (39-117) U/L Total Protein 8.9 H (6.5-8.0) g/dL Albumin 3.2 L (3.5-5.0) g/dL Lipase 112 H (8-78) U/L Short CBC 01/15/25 Range/Units 09:58 WBC 15.3 H (4.8-10.8) X10*3/uL Hgb 11.0 L (12.0-16.0) g/dl Hct 34.1 L (37.0-47.0) % Plt Count 451 H D (160-400) X10*3/uL BMP 01/15/25 09:58 Sodium 132 L Potassium 4.1 Chloride 90 L D Carbon Dioxide 27 BUN 25 H Creatinine 1.16 Calcium 8.3 L D Liver Function 01/15/25 Range/Units 09:58 Total Bilirubin 0.6 (0.0-1.0) mg/dL AST 41 H (5-31) U/L ALT 6 (0-31) U/L Alkaline Phosphatase 163 H (39-117) U/L Albumin 3.2 L (3.5-5.0) g/dL All other labs normal. Assessment and Plan (1) Hypotension: Qualifiers: Hypotension type: unspecified hypotension type Qualified Code(s): I95.9 - Hypotension, unspecified Status: Acute (2) Ileostomy in place: Status: Acute (3) Intra-abdominal abscess post-procedure: Status: Acute Plan 64-year-old female patient a complicated surgical history, s/p multiple abdominal procedures most recently a subtotal colectomy and hernia [place] [facility] [place]. Patient has an ileostomy in his therefore diverted. CT abdomen and pelvis reviewed and does reveal a fluid collection in the pelvis with an air pocket which may indicate an abscess. Call placed to [place]. Lehman [place] [facility] Patient has refused transferred to the [facility]. Because of the patient's recent surgery much of this air may still be postoperative fluid and air and putting her through another surgery at this time would be extremely difficult due to the acute adhesions. Per report she has a difficult abdomen with dense adhesions. I would recommend nonoperative management with IV hydration, antibiotics and repeat CT in 24-48 hours. We will continue to monitor. Procedures Date of Service Date of Service: 01/16/25
[2025-01-15] MEDS: fentaNYL citrate/PF 100 MCG/2 ML VIAL 50 MCG IVPUSH (14:17)
--- NOTE | 2025-01-15 14:43 | PHA.MEDREC ---
Pharmacy Consult ? Medication Reconciliation Pharmacy has completed the medication reconciliation. Pt was discharged from [facility] on 01/11/2025, utilized home list from there to confirm meds.
[2025-01-15 14:44] LABS: Appearance Urine Clear; Color Urine Dark Yellow; Glucose Urine UA Negative (Negative); Leukocyte Esterase Urine Negative (Negative); Nitrite Urine Negative (Negative); PH 5.5 (5.0-9.0); Specific Gravity - Urine >= 1.030 (1.005-1.025); UMIC TRIGGER UACC YES; Urine Blood Negative (Negative); Urine Ketones Trace mg/dL (Negative); Urine Protein 30 (1+) mg/dL (Neg-Trace)
[2025-01-15 14:53] LABS: Bacteria Urine None Seen (None Seen); RBC Urine 0-2 /HPF (0-2); Squamous Epithelial Cell Urine 0-2 /HPF (0-2); WBC Urine 0-5 /HPF (0-5)
[2025-01-15] MEDS: Heparin Sodium,Porcine 5,000 UNIT/ML VIAL 5000 UNIT SUBCUT ×2 (15:05→21:36)
--- NOTE | 2025-01-15 15:28 | P.HPCC_ITS ---
History of Present Illness Date of Service: 01/15/25 Chief Complaint: Abdominal pain 64-year-old lady with underlying history of diastolic dysfunction, CAD, IBS, recent subtotal colectomy and hernia repair at [facility] on 01/07/2025 with ileostomy presented today complain of a 2 day history of worsening abdominal pain. On ER evaluation patient hypotensive with poor response to initial IV fluid resuscitation requiring pressor support. On CT imaging patient with likely abdominal abscess with gas collection. Patient refused transferred to [facility]. She was evaluated by surgical team with current plans for non operative management with antibiotics and close monitoring. Review of Systems 2 Constitutional: Constitutional: Denies daytime sleepiness, Denies excessive sweating, Denies fatigue, Denies fever(s), Denies lethargy, Denies malaise, Denies night sweats, Denies snoring and Denies weight loss Eyes: Eyes: Denies blurry vision and Denies itchy eyes ENT: Denies nasal congestion, Denies post nasal drip, Denies sinus pain, Denies sinus pressure and Denies other ( Thrush) Cardiovascular: Cardiovascular: Denies chest pain, Denies pedal edema, Denies dyspnea, Denies orthopnea and Denies paroxysmal nocturnal dyspnea Respiratory: Respiratory: Denies cough, Denies hemoptysis, Denies excessive phlegm production, Denies dyspnea, Denies snoring and Denies wheezing Gastrointestinal: Gastrointestinal: Reports abdominal pain, Denies heartburn and Reports nausea Musculoskeletal: Musculoskeletal: Denies myalgias, Denies arthralgias and Denies joint swelling Integumentary/Breasts: Skin/Breast: Denies rash Neurologic: Denies memory loss and Denies seizure-like activity Psychiatric: Psychiatric: Denies abnormal sleep pattern, Denies anxiety and Denies memory loss Endocrine: Endocrine: Denies excessive sweating, Denies fatigue and Denies heat intolerance Hematologic/Lymphatic: Hematologic/Lymphatic: Denies easy bruising Allergic/Immunologic: Allergic/Immunologic: Denies itchy eyes, Denies seasonal rhinorrhea and Denies wheezing PMFSH Past Medical History Medical History Insomnia Perforated diverticulum MARKIE (acute kidney injury) MARKIE (acute kidney injury) NSVT (nonsustained ventricular tachycardia) NSTEMI (non-ST elevated myocardial infarction) Bilateral knee pain Polyarthralgia MARKIE (acute kidney injury) Back pain Arthritis History of transfusion of packed red blood cells Anemia Cardiomyopathy Anxiety Small bowel obstruction Myocardial infarction PVC (premature ventricular contraction) Hypertension Irritable bowel syndrome with constipation Barretts esophagus GERD (gastroesophageal reflux disease) Family History Family History Father Colon cancer Congestive heart failure Paternal Aunt Colon cancer Mother Congestive heart failure Afib Surgical History Surgical History Colovesical fistula PIC line (peripherally inserted central catheter) removal History of low anterior resection of rectum S/P colostomy Status post cardiac catheterization Ileostomy in place H/O dilation and curettage History of exploratory laparotomy (05/11/23) History of esophagogastroduodenoscopy (EGD) Hx of colonoscopy Social History Social History Household Members: None Housing: House Are you a primary companion caregiver to a significant other at home: No Do you presently have visiting nurse or other home services: No Alcohol intake: never Patient Tobacco Use Status: Former Tobacco user Tobacco use type: Cigarette Cigarette Packs Per Day: 0.5 Cigarettes Per Day: 10.0 Years Smoked: 25 e-Cigarette/Vaping Use: Never Used Substance Use Type: Marijuana Advance Directives: Yes Advance Directives on File: Yes Advance Directives Date on File: 12/29/23 Do you have a plan to hurt others: No Plan service: No Cognitive needs: No Hearing needs: No Vision needs: Yes Meds Allergies Allergy/AdvReac Type Severity Reaction Status Date / Time clams Allergy Severe Stomach Verified 01/15/25 09:33 Upset clavulanic acid [Augmentin] Allergy Unknown GI, Verified 01/15/25 09:33 Difficulty breathing codeine [CODEINE] Allergy Unknown SENSITIVIT Verified 01/15/25 09:33 Y erythromycin base Allergy Unknown GI, DIFF Verified 01/15/25 09:33 [Erythromycin Base] BREATHING Sulfa (Sulfonamide Allergy Unknown RASH Verified 01/15/25 09:33 Antibiotics) morphine [MORPHINE] AdvReac Severe NAUSEA Verified 01/15/25 09:33 aspirin [Aspirin] AdvReac Mild STOMACH Verified 01/15/25 09:33 UPSET melatonin AdvReac Vomiting Verified 01/15/25 09:33 Active Medications: Current Medications Heparin Sodium (Porcine) (Heparin Sodium,Porcine 5,000 Unit/Ml Vial) 5,000 unit SUBCUT Q8H [facility] Last Admin: 01/15/25 15:05 Dose: 5,000 unit Norepinephrine Bitartrate (Levophed) 8 mg in 250 mls @ 0 mls/hr IVCONT .Q0M [facility]ST[facility]; Protocol Last Titration: 01/15/25 14:51 Dose: 0.15 mcg/kg/min, 18.9 mls/hr Ondansetron HCl (Ondansetron Hcl 4 Mg/2 Ml Vial) 4 mg IVPUSH Q6H PRN PRN Reason: Nausea and Vomiting Last Admin: 01/15/25 15:12 Dose: 4 mg Home Medications ?Medication ?Instructions ?Recorded ?Confirmed ?Last Taken ?Type calcium 600 mg (as 1 tab PO DAILY 11/30/23 01/15/25 03/19/24 09:00 History carbonate)-vitamin D3 5 mcg (200 unit) tablet (Calcium 600 + D(3)) mirtazapine 15 mg tablet 15 mg PO BEDTIME 11/30/23 01/15/25 03/19/24 09:00 History acetaminophen 325 mg tablet 650 mg PO Q12H PRN Pain 01/07/24 01/15/25 03/19/24 09:00 History (Tylenol) multivitamin with minerals-folic 1 tab PO DAILY 01/07/24 01/15/25 03/19/24 09:00 History acid 200 mcg chewable tablet (Multivitamin Gummies) carisoprodol 350 mg tablet 350 mg PO BEDTIME 03/19/24 01/15/25 03/19/24 09:00 History magnesium glycinate 800 mg PO DAILY 03/19/24 01/15/25 03/19/24 09:00 History B-complex with vitamin C 1 tab PO DAILY 01/15/25 01/15/25 Unknown History fluticasone propionate 50 1 spray intranasal DAILY 01/15/25 01/15/25 Unknown History mcg/actuation nasal spray,suspension hydrochlorothiazide 25 mg tablet 25 mg PO DAILY 01/15/25 01/15/25 Unknown History hydromorphone 2 mg tablet 2 - 4 mg PO Q3H PRN pain 01/15/25 01/15/25 Unknown History ibuprofen 200 mg tablet 400 mg PO Q6H PRN Pain 01/15/25 01/15/25 Unknown History losartan 25 mg tablet 25 mg PO DAILY 01/15/25 01/15/25 Unknown History ondansetron 4 mg disintegrating 4 mg PO Q8H PRN Nausea And Vomiting 01/15/25 01/15/25 Unknown History tablet potassium chloride 10 mEq 10 meq PO DAILY 01/15/25 01/15/25 Unknown History tablet,extended release Physical Exam 2 Vital Signs: Vital Signs: Last Vital Signs Temp 100.2 F 01/15/25 13:22 Pulse 92 01/15/25 14:51 Resp 26 H 01/15/25 13:22 BP 90/57 L 01/15/25 14:51 Pulse Ox 96 01/15/25 13:22 O2 Del Method Room Air 01/15/25 13:22 BMI result Body Mass Index 27.1 Const: General: no acute distress, alert and awake Eyes: Sclerae: sclerae normal EOM: EOMs intact bilaterally Neck: Neck: Yes no lymphadenopathy, Yes trachea midline and Yes supple Resp: Effort & Inspection: normal respiratory effort and no respiratory distress Auscultation: clear to auscultation bilaterally Cardio: Rate: regular rate Rhythm: regular rhythm Heart sounds: no gallops, no murmurs and no rubs GI: Palpation (GI): Soft to palpation, Tenderness to palpation present (GI) (Diffusely), no guarding, not rigid and Other GI palpation findings present ( ) Auscultation: Hypoactive bowel sounds present Extrem: General: No clubbing, No cyanosis and Yes edema (Trace bilateral) Results Labs 01/15/25 09:58 01/15/25 09:58 Labs: Laboratory Results - last 24 hr 01/15/25 01/15/25 01/15/25 09:58 12:31 14:35 MCV 89.0 MCH 28.7 MCHC 32.3 RDW 13.1 Plt Count 451 H D MPV 9.0 L Immature Gran % (Auto) 2.1 H Neut % (Auto) 79.3 H Lymph % (Auto) 13.6 L [place] % (Auto) 3.9 Eos % (Auto) 0.7 Baso % (Auto) 0.4 Lymph # (Auto) 2.1 [place] # (Auto) 0.6 Eos # (Auto) 0.1 Baso # (Auto) 0.1 Abs Immat Gran (auto) 0.32 H Absolute Neuts (auto) 12.1 H Absolute Nucleated RBC 0.030 H Nucleated RBC % (auto) 0.2 Smear Tech's Comments VERIFIED Hold Purple Top Hold Blue Top Anion Gap 19 Estim Creat Clear Calc 43.4 Estimated GFR 47 Random Glucose 147 H Lactic Acid 2.3 H* Lactic Acid F/U @ 2Hr 1.6 Calcium 8.3 L D Magnesium 1.9 Total Bilirubin 0.6 AST 41 H ALT 6 Alkaline Phosphatase 163 H Total Protein 8.9 H Albumin 3.2 L Lipase 112 H Urine Color Dark Yellow Urine Appearance Clear Urine pH 5.5 Ur Specific [place] >= 1.030 H Urine Protein 30 (1+) H Urine Glucose (UA) Negative Urine Ketones Trace Urine Blood Negative Urine Nitrite Negative Ur Leukocyte Esterase Negative Urine RBC 0-2 Urine WBC 0-5 Ur Squamous Epith Cells 0-2 Urine Bacteria None Seen Hyaline Casts 3-5 Influenza Type A (PCR) NEGATIVE Influenza Type B (PCR) NEGATIVE RSV RNA Qual (PCR) NEGATIVE SARS-CoV-2 RNA (RT-PCR) NEGATIVE 01/15/25 Unknown MCV MCH MCHC RDW Plt Count MPV Immature Gran % (Auto) Neut % (Auto) Lymph % (Auto) [place] % (Auto) Eos % (Auto) Baso % (Auto) Lymph # (Auto) [place] # (Auto) Eos # (Auto) Baso # (Auto) Abs Immat Gran (auto) Absolute Neuts (auto) Absolute Nucleated RBC Nucleated RBC % (auto) Smear Tech's Comments Hold Purple Top SEE NOTE Hold Blue Top SEE NOTE Anion Gap Estim Creat Clear Calc Estimated GFR Random Glucose Lactic Acid Lactic Acid F/U @ 2Hr Calcium Magnesium Total Bilirubin AST ALT Alkaline Phosphatase Total Protein Albumin Lipase Urine Color Urine Appearance Urine pH Ur Specific [place] Urine Protein Urine Glucose (UA) Urine Ketones Urine Blood Urine Nitrite Ur Leukocyte Esterase Urine RBC Urine WBC Ur Squamous Epith Cells Urine Bacteria Hyaline Casts Influenza Type A (PCR) Influenza Type B (PCR) RSV RNA Qual (PCR) SARS-CoV-2 RNA (RT-PCR) Imaging Radiologist's Impressions: Impressions Abdomen/Pelvis CT 01/15/25 11:04 IMPRESSION: Ileostomy in the right lower quadrant. Multiple bubbles of extraluminal gas in the pelvis adjacent to small bowel loops, greater than expected for a history of prior surgery on 01/07/2025. In addition, there is a 3.0 cm collection of gas and fluid in the central pelvis suspicious for an abscess. Findings were discussed with Luz Marina Garcia in the emergency room on 01/15/2025 at 11:39 AM. Electronically signed by: Rashard Saha MD 01/15/2025 11:40 AM EDT RP Assessment and Plan (1) Intra-abdominal abscess post-procedure: Status: Acute (2) CAD (coronary artery disease): Status: Acute (3) Septic shock: Status: Acute Plan Assessment: 64-year-old lady with recent subtotal colectomy/hernia repair at [facility] on 01/07/2025 admitted with postoperative abscess, evaluated by General surgery, now with conservative management with antibiotics/close monitoring Plan: Neuro: No acute issues. Cardiac: Septic shock, continue to titrate off pressor support as tolerated. Underlying history of CAD. Pulmonary: No acute issues. Renal: No acute issues. Endo: No acute issues. GI: Abdominal abscess, likely postprocedure complication. General surgery service care appreciated. No plans for operative management at this time. Continue empiric antibiotic/IV fluid support. ID: Empiric broad-spectrum coverage for intra-abdominal process. Heme/Onc: No acute issues. Psych: No acute issues. Miscellaneous: No acute issues. Prophylaxis: Heparin Diet: NPO Critical care time spent: 60 minutes
[2025-01-15] MEDS: fentaNYL citrate/PF 100 MCG/2 ML VIAL IVPUSH ×2 (16:03→18:53)
[2025-01-15] MEDS: Piperacillin Sodium/Tazobactam 3.375 GM in 0.9 % Sodium Chloride 50 ML IV ×2 (16:10→21:34)
[2025-01-15] MEDS: vancomycin HCL 1,000 MG, vancomycin HCL 750 MG in 0.9 % Sodium Chloride 500 ML 267.5 MG IV (17:45)
[2025-01-15 19:04] LABS: Anion Gap 14 (12-20); Blood Urea Nitrogen 23 mg/dL (9-16); Calcium 6.8 mg/dL (8.4-10.2); Carbon Dioxide 22 mmol/L (22-29); Chloride 102 mmol/L (96-108); Creatinine Clr Calc Pharmacy 48.9; Estimated Glomerular Filt Rate 54; Glucose Random 91 mg/dL (60-115); Potassium 3.2 mmol/L (3.3-5.1); Sodium 135 mmol/L (135-145)
[2025-01-15 19:06] LABS: Lactic Acid 2.8 mmol/L (0.5-2.0)
--- NOTE | 2025-01-15 19:24 | PC.NURSE ---
Assumed care of patient 15:45. Pt admitted from ED, arrived via stretcher. Levophed running at 0.15 mcg/kg/min. Increased requirements to 0.17 mcg/kg min. 2L LR bolus completed. IV Vanco 1750mg and IV Zosyn given per MAR orders. Pt states feeling of metal band around rib cage and severe 8/10 pain to healing midline surgical incision. Pt states nausea, no episodes of emesis. See skin photos of sx site. PRN fentanyl 100 mcg given. Urine output 100ml since arrival to ICU. 19:06 Critical result from repeat labs showed lactic acid 2.6. POOL HAND Notified. High fall precautions in place, repositioned Q2H.
--- NOTE | 2025-01-15 19:28 | HO.SKINPHOTO ---
Location: Midline surgical incision site Category: sx site Location: Midline surgical incision site Category: sx site
[2025-01-15 20:43] LABS: Reflex Lactate? Lactic Acid Added
[2025-01-15] MEDS: Potassium Chloride/H20 10 MEQ/100 ML PIGGYBACK 100 MEQ IV ×3 (21:07→23:15)
[2025-01-15] MEDS: HYDROmorphone HCl 1 MG/ML SYRINGE IVPUSH ×2 (21:09→23:14)
[2025-01-15 21:14] LABS: Hematocrit 28.6 % (37.0-47.0); Hemoglobin 9.4 g/dl (12.0-16.0); Mean Corpuscular HGB Conc 32.9 g/dl (31.0-35.0); Mean Corpuscular Hemoglobin 29.3 pg (27.0-33.0); Mean Corpuscular Volume 89.1 fL (80.0-98.0); Mean Platelet Volume 9.1 fL (9.4-12.3); Platelet Count 383 X10*3/uL (160-400); Red Blood Count 3.21 X10*6/uL (4.20-5.50); Red Cell Distribution Width 13.4 % (11.0-16.0); WBC ABN SCTR FOR CBC 1; White Blood Count 24.1 X10*3/uL (4.8-10.8)
[2025-01-15 21:29] LABS: Alanine Aminotransferase < 6 U/L (0-31); Albumin Level 2.2 g/dL (3.5-5.0); Alkaline Phosphatase 86 U/L (39-117); Anion Gap 17 (12-20); Aspartate Amino Transferase 29 U/L (5-31); Bilirubin Total 0.6 mg/dL (0.0-1.0); Blood Urea Nitrogen 21 mg/dL (9-16); Calcium 6.9 mg/dL (8.4-10.2); Carbon Dioxide 18 mmol/L (22-29); Chloride 104 mmol/L (96-108); Creatinine Clr Calc Pharmacy 45.4; Estimated Glomerular Filt Rate 49; Glucose Random 86 mg/dL (60-115); Potassium 3.7 mmol/L (3.3-5.1); Sodium 135 mmol/L (135-145); Total Protein 6.1 g/dL (6.5-8.0)
[2025-01-15 21:33] LABS: Band Neutrophils Percent 19 % (3-5); Lymphocytes Absolute Manual 0.7 X10*3/uL (1.2-4.9); Lymphocytes Percent Manual 3 % (20-40); Metamyelocytes Absolute 0.5 X10*3/uL; Metamyelocytes Percent 2 %; Neutrophils Absolute Manual 22.9 X10*3/uL (2.0-8.3); Neutrophils Percent Manual 76 % (45-73); Toxic Vacuolation PRESENT
[2025-01-15 21:36] LABS: Platelet Estimate NORMAL (NORMAL); Platelet Morphology Comment NORMAL; RBC Morphology NORMAL
[2025-01-16] VITALS (35 sets, daily range): BP systolic 81–134; BP diastolic 49–83; PULSE 80–105; RESP 8–22; TEMP 36–38.6; O2SAT 90–100; BMI 30.3
[2025-01-16] MEDS: Potassium Chloride/H20 10 MEQ/100 ML PIGGYBACK 100 MEQ IV (00:17)
[2025-01-16] MEDS: Norepinephrine Bitartrate/D5W 8 MG/250 ML PLAST..BAG 23.94 MG IVCONT (00:19)
[2025-01-16] MEDS: Mirtazapine 15 MG TABLET PO ×2 (00:33→21:45)
[2025-01-16] MEDS: Albumin Human 25 % 50 ML 100 ML IV ×8 (00:34→04:43)
[2025-01-16] MEDS: HYDROmorphone HCl 2 MG/ML VIAL IVPUSH ×5 (01:01→21:47)
[2025-01-16] MEDS: Piperacillin Sodium/Tazobactam 3.375 GM in 0.9 % Sodium Chloride 50 ML IV ×4 (04:10→22:52)
[2025-01-16] MEDS: vancomycin HCL 500 MG in 0.9 % Sodium Chloride 100 ML 110 MG IV (05:02)
[2025-01-16 05:08] LABS: VBG HCO3 23 mmol/L (22-26); VBG pCO2 43 mmHg; VBG pH 7.34 (7.32-7.43); VBG pO2 50 mmHg
[2025-01-16 05:25] LABS: Hematocrit 25.1 % (37.0-47.0); Hemoglobin 7.7 g/dl (12.0-16.0); Mean Corpuscular HGB Conc 30.7 g/dl (31.0-35.0); Mean Corpuscular Hemoglobin 28.4 pg (27.0-33.0); Mean Corpuscular Volume 92.6 fL (80.0-98.0); Mean Platelet Volume 9.3 fL (9.4-12.3); Platelet Count 276 X10*3/uL (160-400); Red Blood Count 2.71 X10*6/uL (4.20-5.50); Red Cell Distribution Width 13.7 % (11.0-16.0)
[2025-01-16 05:33] LABS: WBC ABN SCTR FOR CBC 1; White Blood Count 20.2 X10*3/uL (4.8-10.8)
[2025-01-16 05:47] LABS: Lactic Acid 1.5 mmol/L (0.5-2.0)
[2025-01-16 05:54] LABS: Alanine Aminotransferase < 6 U/L (0-31); Albumin Level 3.9 g/dL (3.5-5.0); Alkaline Phosphatase 63 U/L (39-117); Anion Gap 18 (12-20); Aspartate Amino Transferase 30 U/L (5-31); Bilirubin Total 0.9 mg/dL (0.0-1.0); Blood Urea Nitrogen 21 mg/dL (9-16); Calcium 7.4 mg/dL (8.4-10.2); Carbon Dioxide 20 mmol/L (22-29); Chloride 103 mmol/L (96-108); Estimated Glomerular Filt Rate 41; Glucose Random 96 mg/dL (60-115); Magnesium 1.4 mg/dL (1.6-2.6); Phosphorus 4.6 mg/dL (2.7-4.5); Potassium 3.9 mmol/L (3.3-5.1); Sodium 137 mmol/L (135-145); Total Protein 6.9 g/dL (6.5-8.0)
[2025-01-16 06:02] LABS: Venous Blood Gas Refer to POC result
[2025-01-16] MEDS: Heparin Sodium,Porcine 5,000 UNIT/ML VIAL 5000 UNIT SUBCUT ×3 (06:03→22:53)
[2025-01-16 06:40] LABS: Band Neutrophils Percent 17 % (3-5); Hypochromasia 1+ (5-14) /OIF; Lymphocytes Absolute Manual 1.6 X10*3/uL (1.2-4.9); Lymphocytes Percent Manual 8 % (20-40); Neutrophils Absolute Manual 18.6 X10*3/uL (2.0-8.3); Neutrophils Percent Manual 75 % (45-73); Polychromasia 1+ (0-2) /OIF; RBC Morphology NOTED
[2025-01-16 06:41] LABS: Platelet Estimate NORMAL (NORMAL); Platelet Morphology Comment NORMAL
--- NOTE | 2025-01-16 07:25 | P.PNGS_ITS ---
Subjective Subjective Date of Service: 01/16/25 <Gabi Victoria PA-C - Last Filed: 01/16/25 07:35> 01/16/25 <Alvaro Oneil MD - Last Filed: 01/16/25 07:49> Interval history: Unable to sleep overnight but feels improved today. Reports incisional pain this morning, but overall abdominal pain improved. Denies further nausea/vomiting. Ileostomy functioning. <Gabi Victoria PA-C - Last Filed: 01/16/25 07:35> Physical Exam 2 Vital Signs: Vital Signs: Last Vital Signs Temp 97.5 F 01/16/25 07:00 Pulse 90 01/16/25 07:00 Resp 20 01/16/25 07:00 BP 102/62 01/16/25 07:00 Pulse Ox 91 L 01/16/25 07:00 O2 Del Method Nasal Cannula 01/16/25 07:00 O2 Flow Rate 2 01/16/25 07:00 BMI result Body Mass Index 30.3 <Gabi Victoria PA-C - Last Filed: 01/16/25 07:35> Const: General: comfortable, no acute distress and alert <STAN Wilder Last Filed: 01/16/25 07:35> Orientation/consciousness: patient oriented x3 <STAN Wilder Last Filed: 01/16/25 07:35> Resp: Effort & Inspection: normal respiratory effort, able to speak in complete sentences and not labored <Gabi Victoria PA-C - Last Filed: 01/16/25 07:35> GI: Other: mild diffuse tenderness, no guarding or rebound incision clean ileostomy with good output <Gabi Victoria PA-C - Last Filed: 01/16/25 07:35> Inspection: No distended <STAN Wilder Last Filed: 01/16/25 07:35> Palpation (GI): Soft to palpation <STAN Wilder Last Filed: 01/16/25 07:35> Percussion: Yes normal to percussion <STAN Wilder Last Filed: 01/16/25 07:35> Skin: General skin exam: no rashes or lesions noted <Gabi Victoria PA-C - Last Filed: 01/16/25 07:35> Neuro: General: patient oriented x3 and moves all extremities <Gabi Victoria PA-C - Last Filed: 01/16/25 07:35> Objective Data Active Medications Heparin Sodium (Porcine) (Heparin Sodium,Porcine 5,000 Unit/Ml Vial) 5,000 unit SUBCUT Q8H [facility] Last Admin: 01/16/25 06:03 Dose: 5,000 unit Documented By: EVA Hydromorphone HCl (Hydromorphone Hcl 2 Mg/Ml Vial) 2 mg IVPUSH Q2H PRN; Protocol PRN Reason: Pain, Severe (Pain Scale 7-10) Last Admin: 01/16/25 03:03 Dose: 2 mg Documented By: EVA Norepinephrine Bitartrate (Levophed) 8 mg in 250 mls @ 0 mls/hr IVCONT .Q0M [facility]; Protocol Last Titration: 01/16/25 06:31 Dose: 0.13 mcg/kg/min, 16.38 mls/hr Documented By: EVA Piperacillin Sod/Tazobactam (Sod 3.375 gm/ Sodium Chloride) 50 mls @ 100 mls/hr IV Q6H [facility] Last Infusion: 01/16/25 04:47 Dose: Infused Documented By: EVA Vancomycin HCl 500 mg/ Sodium (Chloride) 110 mls @ 110 mls/hr IV Q12H [facility] Last Infusion: 01/16/25 06:20 Dose: Infused Documented By: EVA Magnesium Sulfate (Magnesium Sulfate/H2o) 2 gm in 50 mls @ 25 mls/hr IV ONCE ONE Stop: 01/16/25 09:29 Ondansetron HCl (Ondansetron Hcl 4 Mg/2 Ml Vial) 4 mg IVPUSH Q4H PRN PRN Reason: Nausea and Vomiting Last Admin: 01/15/25 23:14 Dose: 4 mg Documented By: EVA Pharmacy Consult (Consult Rx Vancomycin Dosing) 1 each MISCELLANE DAILY PRN PRN Reason: Consult order <STAN Wilder Last Filed: 01/16/25 07:35> Labs CBC & Chem 7: 01/16/25 04:54 01/16/25 04:54 <Gabi Victoria PA-C - Last Filed: 01/16/25 07:35> Labs: Laboratory Results - last 24 hr 01/15/25 01/15/25 01/15/25 09:58 12:31 14:35 MCV 89.0 MCH 28.7 MCHC 32.3 RDW 13.1 Plt Count 451 H D MPV 9.0 L Immature Gran % (Auto) 2.1 H Neut % (Auto) 79.3 H Lymph % (Auto) 13.6 L [place] % (Auto) 3.9 Eos % (Auto) 0.7 Baso % (Auto) 0.4 Lymph # (Auto) 2.1 [place] # (Auto) 0.6 Eos # (Auto) 0.1 Baso # (Auto) 0.1 Abs Immat Gran (auto) 0.32 H Absolute Neuts (auto) 12.1 H Absolute Nucleated RBC 0.030 H Nucleated RBC % (auto) 0.2 Neutrophils % (Manual) Band Neutrophils % Lymphocytes % (Manual) Metamyelocytes % Abs Neuts (Manual) Lymphocytes # (Manual) Metamyelocytes # Toxic Vacuolation Platelet Estimate Plt Morphology Comment RBC Morphology Polychromasia Hypochromasia Smear Tech's Comments VERIFIED Hold Purple Top Hold Blue Top VBG pH VBG pCO2 VBG pO2 VBG HCO3 VBG O2 Saturation VBG Base Excess Anion Gap 19 Estim Creat Clear Calc 43.4 Estimated GFR 47 Random Glucose 147 H Lactic Acid 2.3 H* Lactic Acid F/U @ 2Hr 1.6 Calcium 8.3 L D Phosphorus Magnesium 1.9 Total Bilirubin 0.6 AST 41 H ALT 6 Alkaline Phosphatase 163 H Total Protein 8.9 H Albumin 3.2 L Lipase 112 H Urine Color Dark Yellow Urine Appearance Clear Urine pH 5.5 Ur Specific Fleming >= 1.030 H Urine Protein 30 (1+) H Urine Glucose (UA) Negative Urine Ketones Trace Urine Blood Negative Urine Nitrite Negative Ur Leukocyte Esterase Negative Urine RBC 0-2 Urine WBC 0-5 Ur Squamous Epith Cells 0-2 Urine Bacteria None Seen Hyaline Casts 3-5 Influenza Type A (PCR) NEGATIVE Influenza Type B (PCR) NEGATIVE RSV RNA Qual (PCR) NEGATIVE SARS-CoV-2 RNA (RT-PCR) NEGATIVE 01/15/25 01/15/25 01/15/25 18:10 20:59 Unknown MCV 89.1 MCH 29.3 MCHC 32.9 RDW 13.4 Plt Count 383 MPV 9.1 L Immature Gran % (Auto) Cancelled Neut % (Auto) Cancelled Lymph % (Auto) Cancelled [place] % (Auto) Cancelled Eos % (Auto) Cancelled Baso % (Auto) Cancelled Lymph # (Auto) Cancelled [place] # (Auto) Cancelled Eos # (Auto) Cancelled Baso # (Auto) Cancelled Abs Immat Gran (auto) Cancelled Absolute Neuts (auto) Cancelled Absolute Nucleated RBC 0.000 Nucleated RBC % (auto) 0.0 Neutrophils % (Manual) 76 H Band Neutrophils % 19 H Lymphocytes % (Manual) 3 L Metamyelocytes % 2 Abs Neuts (Manual) 22.9 H Lymphocytes # (Manual) 0.7 L Metamyelocytes # 0.5 Toxic Vacuolation PRESENT Platelet Estimate NORMAL Plt Morphology Comment NORMAL RBC Morphology NORMAL Polychromasia Hypochromasia Smear Tech's Comments Hold Purple Top SEE NOTE Hold Blue Top SEE NOTE VBG pH VBG pCO2 VBG pO2 VBG HCO3 VBG O2 Saturation VBG Base Excess Anion Gap 14 17 Estim Creat Clear Calc 48.9 45.4 Estimated GFR 54 49 Random Glucose 91 86 Lactic Acid 2.8 H* Lactic Acid F/U @ 2Hr 2.0 Calcium 6.8 L D 6.9 L Phosphorus Magnesium Total Bilirubin 0.6 AST 29 ALT < 6 Alkaline Phosphatase 86 Total Protein 6.1 L Albumin 2.2 L Lipase Urine Color Urine Appearance Urine pH Ur Specific Fleming Urine Protein Urine Glucose (UA) Urine Ketones Urine Blood Urine Nitrite Ur Leukocyte Esterase Urine RBC Urine WBC Ur Squamous Epith Cells Urine Bacteria Hyaline Casts Influenza Type A (PCR) Influenza Type B (PCR) RSV RNA Qual (PCR) SARS-CoV-2 RNA (RT-PCR) 01/16/25 01/16/25 04:54 05:04 MCV 92.6 MCH 28.4 MCHC 30.7 L RDW 13.7 Plt Count 276 D MPV 9.3 L Immature Gran % (Auto) Cancelled Neut % (Auto) Cancelled Lymph % (Auto) Cancelled [place] % (Auto) Cancelled Eos % (Auto) Cancelled Baso % (Auto) Cancelled Lymph # (Auto) Cancelled [place] # (Auto) Cancelled Eos # (Auto) Cancelled Baso # (Auto) Cancelled Abs Immat Gran (auto) Cancelled Absolute Neuts (auto) Cancelled Absolute Nucleated RBC 0.000 Nucleated RBC % (auto) 0.0 Neutrophils % (Manual) 75 H Band Neutrophils % 17 H Lymphocytes % (Manual) 8 L Metamyelocytes % Abs Neuts (Manual) 18.6 H Lymphocytes # (Manual) 1.6 Metamyelocytes # Toxic Vacuolation Platelet Estimate NORMAL Plt Morphology Comment NORMAL RBC Morphology NOTED Polychromasia 1+ (0-2) Hypochromasia 1+ (5-14) Smear Tech's Comments Hold Purple Top Hold Blue Top VBG pH 7.34 VBG pCO2 43 VBG pO2 50 VBG HCO3 23 VBG O2 Saturation 73.0 VBG Base Excess -2.0 Anion Gap 18 Estim Creat Clear Calc 39.0 Estimated GFR 41 Random Glucose 96 Lactic Acid 1.5 Lactic Acid F/U @ 2Hr Calcium 7.4 L D Phosphorus 4.6 H Magnesium 1.4 L* Total Bilirubin 0.9 AST 30 ALT < 6 Alkaline Phosphatase 63 Total Protein 6.9 Albumin 3.9 Lipase Urine Color Urine Appearance Urine pH Ur Specific Fleming Urine Protein Urine Glucose (UA) Urine Ketones Urine Blood Urine Nitrite Ur Leukocyte Esterase Urine RBC Urine WBC Ur Squamous Epith Cells Urine Bacteria Hyaline Casts Influenza Type A (PCR) Influenza Type B (PCR) RSV RNA Qual (PCR) SARS-CoV-2 RNA (RT-PCR) <Gabi Victoria PA-C - Last Filed: 01/16/25 07:35> Procedures Date of Service Date of Service: 01/16/25 <Gabi Victoria PA-C - Last Filed: 01/16/25 07:35> 01/16/25 <Alvaro Oneil MD - Last Filed: 01/16/25 07:49> Progress Note: A&P Assessment and plan (1) Abscess of female pelvis: Status: Acute <Gabi Victoria PA-C - Last Filed: 01/16/25 07:35> (2) Septic shock: Status: Acute <Gabi Victoria PA-C - Last Filed: 01/16/25 07:35> Assessment and Plan: 64-year-old female patient a complicated surgical history, s/p multiple abdominal procedures most recently a subtotal colectomy and hernia repair performed at [facility] on 01/07/2025 presenting with abdominal pain, nausea/vomiting found to have CT abdomen and pelvis fluid collection in the pelvis with an air pocket which may indicate an abscess. She was admitted to ICU for septic shock. Overall appears improved this morning. WBC downtrending, now afebrile. Remains on pressors this morning. UOP improving. Cont IV abx and IVF for now. Plan for repeat CT scan tomorrow. Further measures as per ICU team. <Gabi Victoria PA-C - Last Filed: 01/16/25 07:35> Time Spent With Patient Time: Total time managing care of this patient today ____ minutes. <Gabi Victoria PA-C - Last Filed: 01/16/25 07:35> Quality Stroke Does the patient have a stroke diagnosis?: No <Alvaro Oneil MD - Last Filed: 01/16/25 07:49> VTE Prior VTE?: No <Alvaro Oneil MD - Last Filed: 01/16/25 07:49> VTE Risk Level:: Medical - moderate - high <Gabi Victoria PA-C - Last Filed: 01/16/25 07:35> VTE Device Contraindication: N/A - Device Ordered <Gabi Victoria PA-C - Last Filed: 01/16/25 07:35> VTE Drug Contraindication: N/A - Med Ordered <Gabi Victoria PA-C - Last Filed: 01/16/25 07:35>
[2025-01-16] MEDS: Magnesium Sulfate/H2O 2 GM/50 ML PIGGYBACK IV (08:27)
[2025-01-16] MEDS: ondansetron HCL 4 MG/2 ML VIAL IVPUSH (08:29)
--- NOTE | 2025-01-16 09:36 | MHC.CM.PN ---
IMM DELIVERED CM MET WITH PT AT BEDSIDE IN ICU. PT REMAINS ON PRESSORS. PT LIVES ALONE AND USES WALKER/CANE PRN FOR MOBILITY. PT IS ACTIVE WITH [facility] FOR OSTOMY CARE AND SUPPLIES PROVIDED VIA [facility]. + HCP ON FILE AND VERIFIED. PCP DR. GARAY AT [facility]: HOME WITH RESUMPTION OF [facility]. RETRUN REFERRAL SENT VIA [facility]. PT HAS OWN RIDE HOME ON DC. CM WILL CONTINUE TO FOLLOW FOR ANY CHANGE TO DC PLAN/NEEDS
[2025-01-16] MEDS: Pantoprazole Sodium 40 MG/10 ML VIAL IVPUSH ×2 (09:47→17:57)
--- NOTE | 2025-01-16 10:37 | MHC.CLN ---
DISCUSSED AT ROUNDS WITH MD PLAN TO START PPN REVIEWED LABS DISCUSSED WITH PHARMACY RECOMMEND PPN AT 45ML/HR TO PROVIDE 551KCALS, 108G DEXTROSE, 46G PROTEIN REPLETE LYTES NEEDED SEE FULL CLINICAL NUTRITION ASSESSMENT
--- NOTE | 2025-01-16 11:03 | PM.CCPN ---
Subjective Subjective Date of Service: 01/16/25 Interval History: 64-year-old lady with underlying history of diastolic dysfunction, CAD, IBS, [place] [facility] [place] with ileostomy presented today complain of a 2 day history of worsening abdominal pain. On ER evaluation patient hypotensive with poor response to initial IV fluid resuscitation requiring pressor support. On CT imaging patient with likely abdominal abscess with gas collection. Patient refused [place] [facility] She was evaluated by surgical team with current plans for non operative management with antibiotics and close monitoring. No events overnight. Pressor requirements improving. Abdominal exam remains benign. Critical Care Time (minutes): 45 Physical Exam Vital Signs: Vital Signs: Last Vital Signs Temp 99.3 F 01/16/25 10:00 Pulse 95 01/16/25 10:00 Resp 20 01/16/25 10:00 BP 91/56 L 01/16/25 10:00 Pulse Ox 90 L 01/16/25 10:00 O2 Del Method Nasal Cannula 01/16/25 10:00 O2 Flow Rate 2 01/16/25 10:00 BMI result Body Mass Index 30.3 Const: General: no acute distress, alert and awake Eyes: Sclerae: sclerae normal EOM: EOMs intact bilaterally Neck: Neck: Yes no lymphadenopathy, Yes trachea midline and Yes supple Resp: Effort & Inspection: normal respiratory effort and no respiratory distress Auscultation: clear to auscultation bilaterally Cardio: Rate: regular rate Rhythm: regular rhythm Heart sounds: no gallops, no murmurs and no rubs GI: Other: Ileostomy with output Palpation (GI): Soft to palpation, Tenderness to palpation present (GI), no guarding and not rigid Auscultation: Hyperactive bowel sounds present Extrem: General: Yes no pedal edema, No clubbing and No cyanosis Objective Data Labs 01/16/25 04:54 01/16/25 04:54 Labs: Laboratory Results - last 24 hr 01/15/25 01/15/25 01/15/25 09:58 12:31 14:35 WBC RBC Hgb Hct MCV MCH MCHC RDW Plt Count MPV Immature Gran % (Auto) Neut % (Auto) Lymph % (Auto) [place] % (Auto) Eos % (Auto) Baso % (Auto) Lymph # (Auto) [place] # (Auto) Eos # (Auto) Baso # (Auto) Abs Immat Gran (auto) Absolute Neuts (auto) Absolute Nucleated RBC Nucleated RBC % (auto) Neutrophils % (Manual) Band Neutrophils % Lymphocytes % (Manual) Metamyelocytes % Abs Neuts (Manual) Lymphocytes # (Manual) Metamyelocytes # Toxic Vacuolation Platelet Estimate Plt Morphology Comment RBC Morphology Polychromasia Hypochromasia Smear Tech's Comments VERIFIED VBG pH VBG pCO2 VBG pO2 VBG HCO3 VBG O2 Saturation VBG Base Excess Sodium Potassium Chloride Carbon Dioxide Anion Gap BUN Creatinine Estim Creat Clear Calc Estimated GFR Random Glucose Lactic Acid Lactic Acid F/U @ 2Hr 1.6 Calcium Phosphorus Magnesium Total Bilirubin AST ALT Alkaline Phosphatase Total Protein Albumin Urine Color Dark Yellow Urine Appearance Clear Urine pH 5.5 Ur Specific [place] >= 1.030 H Urine Protein 30 (1+) H Urine Glucose (UA) Negative Urine Ketones Trace Urine Blood Negative Urine Nitrite Negative Ur Leukocyte Esterase Negative Urine RBC 0-2 Urine WBC 0-5 Ur Squamous Epith Cells 0-2 Urine Bacteria None Seen Hyaline Casts 3-5 01/15/25 01/15/25 01/16/25 18:10 20:59 04:54 WBC 24.1 H 20.2 H RBC 3.21 L 2.71 L Hgb 9.4 L 7.7 L Hct 28.6 L 25.1 L MCV 89.1 92.6 MCH 29.3 28.4 MCHC 32.9 30.7 L RDW 13.4 13.7 Plt Count 383 276 D MPV 9.1 L 9.3 L Immature Gran % (Auto) Cancelled Cancelled Neut % (Auto) Cancelled Cancelled Lymph % (Auto) Cancelled Cancelled [place] % (Auto) Cancelled Cancelled Eos % (Auto) Cancelled Cancelled Baso % (Auto) Cancelled Cancelled Lymph # (Auto) Cancelled Cancelled [place] # (Auto) Cancelled Cancelled Eos # (Auto) Cancelled Cancelled Baso # (Auto) Cancelled Cancelled Abs Immat Gran (auto) Cancelled Cancelled Absolute Neuts (auto) Cancelled Cancelled Absolute Nucleated RBC 0.000 0.000 Nucleated RBC % (auto) 0.0 0.0 Neutrophils % (Manual) 76 H 75 H Band Neutrophils % 19 H 17 H Lymphocytes % (Manual) 3 L 8 L Metamyelocytes % 2 Abs Neuts (Manual) 22.9 H 18.6 H Lymphocytes # (Manual) 0.7 L 1.6 Metamyelocytes # 0.5 Toxic Vacuolation PRESENT Platelet Estimate NORMAL NORMAL Plt Morphology Comment NORMAL NORMAL RBC Morphology NORMAL NOTED Polychromasia 1+ (0-2) Hypochromasia 1+ (5-14) Smear Tech's Comments VBG pH VBG pCO2 VBG pO2 VBG HCO3 VBG O2 Saturation VBG Base Excess Sodium 135 135 137 Potassium 3.2 L D 3.7 3.9 Chloride 102 104 103 Carbon Dioxide 22 18 L 20 L Anion Gap 14 17 18 BUN 23 H 21 H 21 H Creatinine 1.03 1.11 1.29 Estim Creat Clear Calc 48.9 45.4 39.0 Estimated GFR 54 49 41 Random Glucose 91 86 96 Lactic Acid 2.8 H* 1.5 Lactic Acid F/U @ 2Hr 2.0 Calcium 6.8 L D 6.9 L 7.4 L D Phosphorus 4.6 H Magnesium 1.4 L* Total Bilirubin 0.6 0.9 AST 29 30 ALT < 6 < 6 Alkaline Phosphatase 86 63 Total Protein 6.1 L 6.9 Albumin 2.2 L 3.9 Urine Color Urine Appearance Urine pH Ur Specific [place] Urine Protein Urine Glucose (UA) Urine Ketones Urine Blood Urine Nitrite Ur Leukocyte Esterase Urine RBC Urine WBC Ur Squamous Epith Cells Urine Bacteria Hyaline Casts 01/16/25 05:04 WBC RBC Hgb Hct MCV MCH MCHC RDW Plt Count MPV Immature Gran % (Auto) Neut % (Auto) Lymph % (Auto) Wallace % (Auto) Eos % (Auto) Baso % (Auto) Lymph # (Auto) Wallace # (Auto) Eos # (Auto) Baso # (Auto) Abs Immat Gran (auto) Absolute Neuts (auto) Absolute Nucleated RBC Nucleated RBC % (auto) Neutrophils % (Manual) Band Neutrophils % Lymphocytes % (Manual) Metamyelocytes % Abs Neuts (Manual) Lymphocytes # (Manual) Metamyelocytes # Toxic Vacuolation Platelet Estimate Plt Morphology Comment RBC Morphology Polychromasia Hypochromasia Smear Tech's Comments VBG pH 7.34 VBG pCO2 43 VBG pO2 50 VBG HCO3 23 VBG O2 Saturation 73.0 VBG Base Excess -2.0 Sodium Potassium Chloride Carbon Dioxide Anion Gap BUN Creatinine Estim Creat Clear Calc Estimated GFR Random Glucose Lactic Acid Lactic Acid F/U @ 2Hr Calcium Phosphorus Magnesium Total Bilirubin AST ALT Alkaline Phosphatase Total Protein Albumin Urine Color Urine Appearance Urine pH Ur Specific [place] Urine Protein Urine Glucose (UA) Urine Ketones Urine Blood Urine Nitrite Ur Leukocyte Esterase Urine RBC Urine WBC Ur Squamous Epith Cells Urine Bacteria Hyaline Casts Microbiology Microbiology Results: Microbiology 01/15/25 10:01 Blood - Venous Blood Culture - Preliminary No growth after 24 hours. Progress Note: A&P Assessment and plan (1) Ileostomy in place: Status: Acute (2) CAD (coronary artery disease): Status: Acute (3) Intra-abdominal abscess post-procedure: Status: Acute (4) Septic shock: Status: Acute Plan Assessment: 64-year-old lady with recent [place] [facility] [place] [facility] admitted with postoperative abscess, evaluated by General surgery, now with conservative management with antibiotics/close monitoring Plan: Neuro: No acute issues. Cardiac: Septic shock, continue to titrate off pressor support as tolerated, improving. Underlying history of CAD. Pulmonary: No acute issues. Renal: No acute issues. Endo: No acute issues. GI: Abdominal abscess, likely postprocedure complication. General surgery service care appreciated. No plans for operative management at this time. Continue empiric antibiotic/IV fluid support. ID: Empiric broad-spectrum coverage for intra-abdominal process. Heme/Onc: No acute issues. Psych: No acute issues. Miscellaneous: No acute issues. Prophylaxis: Heparin, ppi Diet: PPN Critical care time spent: 60 minutes Quality Stroke Does the patient have a stroke diagnosis?: No VTE Prior VTE?: No VTE Risk Level:: Medical - moderate - high VTE Device Contraindication: N/A - Device Ordered VTE Drug Contraindication: N/A - Med Ordered
[2025-01-16] MEDS: Norepinephrine Bitartrate/D5W 8 MG/250 ML PLAST..BAG 11.34 MG IVCONT (13:09)
[2025-01-16] MEDS: Acetaminophen 1,000 MG/100 ML PIGGYBACK 400 MG IV (14:17)
[2025-01-16 16:52] LABS: Vancomycin Random 25.5 mcg/mL (15-20)
--- NOTE | 2025-01-16 17:05 | HE.PHANOTE ---
RE: VANCO DOSING Trough came back as 25.5 mg/L and renal function has worsen slightly. Dose is held, trough is scheduled for 01/17/25 @0600 and new dose of 500 mg q24h is pended post trough level.
--- NOTE | 2025-01-16 21:20 | W.PM.CCHP ---
Procedures Date of Service Date of Service: 01/16/25 Central Line Placement Right IJ: Central Line Comments: The right neck was widely prepped and draped in full sterile fashion.? Under US? guidance, the right IJ vein was cannulated on the 1st pass of the 18 g thin wall needle, with return of dark, nonpulsatile blood. ? The wire was threaded without incident.? The 16 cm x 7 Upper Sorbian triple-lumen CVC was advanced into the vein up to the hub via the Seldinger technique without incident.? There was good blood return x3.? The catheter was sutured x2 and a Biopatch and dry sterile dressing were applied. The patient tolerated the procedure well with no complications. Postop chest x-ray showed the line in good position with no pneumothorax.? The patient tolerated the procedure well with no complications. Consent for Procedure: Elective - informed consent obtained Time out performed: Yes Sterile Technique Used: Yes Patient placed on monitor/pulse ox: Yes MD prep: mask, gown and gloves Central line prep: Chlorhexidine scrub and sterile drapes applied Local anesthesia used: lidocaine 1% Amount of anesthesia used (ml): 3 Ultrasound used for placement: Yes Central line lumen inserted: triple Post procedure: sutured in place, good blood return, all ports aspirated, flushed, capped and sterile dressing applied Post procedure x-ray: tip of catheter in good position and no pneumothorax seen Patient tolerated procedure: well and no complications Complications: none
[2025-01-16] MEDS: Parenteral Nutrition 1,080 ML 40 ML IV (21:43)
[2025-01-17] VITALS (29 sets, daily range): BP systolic 100–135; BP diastolic 53–78; PULSE 79–110; RESP 10–22; TEMP 36.7–38.2; O2SAT 90–100; BMI 28.9
[2025-01-17] MEDS: HYDROmorphone HCl 2 MG/ML VIAL IVPUSH ×4 (00:01→20:25)
[2025-01-17] MEDS: Piperacillin Sodium/Tazobactam 3.375 GM in 0.9 % Sodium Chloride 50 ML IV ×4 (04:54→21:22)
[2025-01-17] MEDS: Pantoprazole Sodium 40 MG/10 ML VIAL IVPUSH ×2 (05:31→16:33)
[2025-01-17] MEDS: Norepinephrine Bitartrate/D5W 8 MG/250 ML PLAST..BAG 11.34 MG IVCONT (05:38)
[2025-01-17 05:44] LABS: VBG Base Excess -12.1 mmol/L; VBG HCO3 12 mmol/L (22-26); VBG pCO2 21 mmHg; VBG pH 7.36 (7.32-7.43); VBG pO2 52 mmHg
[2025-01-17] MEDS: Heparin Sodium,Porcine 5,000 UNIT/ML VIAL 5000 UNIT SUBCUT ×3 (05:46→21:36)
[2025-01-17 06:16] LABS: Vancomycin Random 8.4 mcg/mL (15-20)
[2025-01-17 06:47] LABS: Venous Blood Gas Refer to POC result
[2025-01-17 06:53] LABS: Venous Blood Gas Refer to POC result
[2025-01-17 06:53] LABS: VBG HCO3 23 mmol/L (22-26); VBG pCO2 33 mmHg; VBG pH 7.45 (7.32-7.43); VBG pO2 61 mmHg
[2025-01-17 07:01] LABS: Hemoglobin 8.2 g/dl (12.0-16.0); Mean Corpuscular HGB Conc 31.5 g/dl (31.0-35.0); Mean Corpuscular Hemoglobin 28.8 pg (27.0-33.0); Mean Corpuscular Volume 91.2 fL (80.0-98.0); Mean Platelet Volume 9.6 fL (9.4-12.3); Platelet Count 266 X10*3/uL (160-400); Red Blood Count 2.85 X10*6/uL (4.20-5.50); Red Cell Distribution Width 13.8 % (11.0-16.0)
[2025-01-17 07:06] LABS: WBC ABN SCTR FOR CBC 1
[2025-01-17 07:11] LABS: Alanine Aminotransferase < 6 U/L (0-31); Alkaline Phosphatase 59 U/L (39-117); Anion Gap 12 (12-20); Aspartate Amino Transferase 31 U/L (5-31); Bilirubin Total 0.6 mg/dL (0.0-1.0); Blood Urea Nitrogen 21 mg/dL (9-16); Carbon Dioxide 21 mmol/L (22-29); Chloride 101 mmol/L (96-108); Estimated Glomerular Filt Rate 45; Glucose Random 129 mg/dL (60-115); Magnesium 2.1 mg/dL (1.6-2.6); Phosphorus 2.1 mg/dL (2.7-4.5); Potassium 3.3 mmol/L (3.3-5.1); Sodium 131 mmol/L (135-145); Total Protein 6.3 g/dL (6.5-8.0); Triglycerides 117 mg/dL (<150)
[2025-01-17 07:35] LABS: Band Neutrophils Percent 9 % (3-5); Eosinophils Percent Manual 1 % (0-4); Lymphocytes Percent Manual 10 % (20-40); Monocytes Percent Manual 1 % (2-11); Neutrophils Percent Manual 79 % (45-73)
[2025-01-17 07:36] LABS: Hypochromasia 1+ (5-14) /OIF; RBC Morphology NOTED
[2025-01-17 07:38] LABS: Eosinophils Absolute Manual 0.1 X10*3/uL (0.0-0.4); Monocytes Absolute Manual 0.1 X10*3/uL (0.1-1.2); Neutrophils Absolute Manual 8.4 X10*3/uL (2.0-8.3); White Blood Count 9.5 X10*3/uL (4.8-10.8)
[2025-01-17 07:57] LABS: Platelet Estimate NORMAL (NORMAL); Platelet Morphology Comment NORMAL
[2025-01-17] MEDS: Acetaminophen 1,000 MG/100 ML PIGGYBACK 400 MG IV (08:15)
[2025-01-17] MEDS: Albumin Human 25 % 100 ML IV ×3 (08:26→19:52)
[2025-01-17] MEDS: vancomycin HCL 500 MG in 0.9 % Sodium Chloride 100 ML 110 MG IV ×2 (08:40→19:53)
--- NOTE | 2025-01-17 08:46 | PM.PNGS ---
Subjective Subjective Date of Service: 01/17/25 <Gabi Victoria PA-C - Last Filed: 01/17/25 08:52> 01/17/25 <Alvaro Oneil MD - Last Filed: 01/17/25 13:33> Interval history: Feels better this morning. Denies abd pain at rest, only has mild incisional pain with movement. Denies nausea/vomiting. Has not been OOB. <Gabi Victoria PA-C - Last Filed: 01/17/25 08:52> Physical Exam Vital Signs: Vital Signs: Last Vital Signs Temp 100.8 F H 01/17/25 08:00 Pulse 89 01/17/25 08:42 Resp 15 01/17/25 08:00 BP 135/75 01/17/25 08:42 Pulse Ox 98 01/17/25 08:00 O2 Del Method Nasal Cannula 01/17/25 08:00 O2 Flow Rate 2 01/17/25 08:00 BMI result Body Mass Index 28.9 <Gabi Victoria PA-C - Last Filed: 01/17/25 08:52> Const: General: comfortable, no acute distress and alert <STAN Wilder Last Filed: 01/17/25 08:52> Orientation/consciousness: patient oriented x3 <STAN Wilder Last Filed: 01/17/25 08:52> Resp: Effort & Inspection: normal respiratory effort, able to speak in complete sentences and not labored <Gabi Victoria PA-C - Last Filed: 01/17/25 08:52> Cardio: Rate: regular rate <STAN Wilder Last Filed: 01/17/25 08:52> GI: Other: midline incision without erythema, drainage ostomy beefy red, small amount of stool output <STAN Wilder Last Filed: 01/17/25 08:52> Inspection: No distended <STAN Wilder Last Filed: 01/17/25 08:52> Palpation (GI): Soft to palpation, Tenderness to palpation present (GI) (mild incisional) with no rebound tenderness, no guarding and not rigid <Gabi Victoria PA-C - Last Filed: 01/17/25 08:52> Skin: General skin exam: no rashes or lesions noted <STAN Wilder Last Filed: 01/17/25 08:52> Neuro: General: patient oriented x3 and moves all extremities <Gabi Victoria PA-C - Last Filed: 01/17/25 08:52> Objective Data Active Medications Heparin Sodium (Porcine) (Heparin Sodium,Porcine 5,000 Unit/Ml Vial) 5,000 unit SUBCUT Q8H ARISTIDES Last Admin: 01/17/25 05:46 Dose: 5,000 unit Documented By: ABHIJIT Hydromorphone HCl (Hydromorphone Hcl 2 Mg/Ml Vial) 2 mg IVPUSH Q2H PRN; Protocol PRN Reason: Pain, Severe (Pain Scale 7-10) Last Admin: 01/17/25 00:01 Dose: 2 mg Documented By: NILO Norepinephrine Bitartrate (Levophed) 8 mg in 250 mls @ 0 mls/hr IVCONT .Q0M ARISTIDES; Protocol Last Titration: 01/17/25 08:42 Dose: 0.07 mcg/kg/min, 8.82 mls/hr Documented By: KASSY Piperacillin Sod/Tazobactam (Sod 3.375 gm/ Sodium Chloride) 50 mls @ 100 mls/hr IV Q6H [facility] Last Infusion: 01/17/25 05:24 Dose: Infused Documented By: ABHIJIT Nutrition (Parenteral) (Parenteral Nutrition) 1,080 mls @ 45 mls/hr IV .Q24H ARISTIDES; Protocol Stop: 01/17/25 20:59 Last Admin: 01/16/25 21:43 Dose: 40 mls/hr Documented By: NILO Vancomycin HCl 500 mg/ Sodium (Chloride) 110 mls @ 110 mls/hr IV Q12H ARISTIDES Last Admin: 01/17/25 08:40 Dose: 110 mls/hr Documented By: KASSY Potassium Phosphate (Kphos) 15 mmol in 250 mls @ 62.5 mls/hr IV Q4H [facility] Stop: 01/17/25 15:59 Albumin Human (Kedbumin 25 %) 100 mls @ 100 mls/hr IV Q6H [facility] Stop: 01/18/25 02:59 Last Admin: 01/17/25 08:26 Dose: 100 mls/hr Documented By: KASSY Mirtazapine (Mirtazapine 15 Mg Tablet) 15 mg PO BEDTIME [facility] Last Admin: 01/16/25 21:45 Dose: 15 mg Documented By: NILO Ondansetron HCl (Ondansetron Hcl 4 Mg/2 Ml Vial) 4 mg IVPUSH Q4H PRN PRN Reason: Nausea and Vomiting Last Admin: 01/16/25 08:29 Dose: 4 mg Documented By: LUIS Pantoprazole Sodium (Pantoprazole Sodium 40 Mg/10 Ml Vial) 40 mg IVPUSH BID@0630,1630 [facility] Last Admin: 01/17/25 05:31 Dose: 40 mg Documented By: ABHIJIT Pharmacy Consult (Consult Rx Vancomycin Dosing) 1 each MISCELLANE DAILY PRN PRN Reason: Consult order <Gabi Victoria PA-C - Last Filed: 01/17/25 08:52> Labs CBC & Chem 7: 01/17/25 06:38 01/17/25 06:38 <Gabi Victoria PA-C - Last Filed: 01/17/25 08:52> Labs: Laboratory Results - last 24 hr 01/16/25 01/17/25 01/17/25 16:22 05:28 05:40 MCV TNP MCH TNP MCHC TNP RDW TNP Plt Count TNP MPV TNP Immature Gran % (Auto) Cancelled Neut % (Auto) Cancelled Lymph % (Auto) Cancelled [place] % (Auto) Cancelled Eos % (Auto) Cancelled Baso % (Auto) Cancelled Lymph # (Auto) Cancelled [place] # (Auto) Cancelled Eos # (Auto) Cancelled Baso # (Auto) Cancelled Abs Immat Gran (auto) Cancelled Absolute Neuts (auto) Cancelled Absolute Nucleated RBC TNP Nucleated RBC % (auto) TNP Neutrophils % (Manual) TNP Band Neutrophils % TNP Lymphocytes % (Manual) TNP Atypical Lymphs % (Man) TNP Monocytes % (Manual) TNP Eosinophils % (Manual) TNP Basophils % (Manual) TNP Metamyelocytes % TNP Myelocytes % TNP Promyelocytes % TNP Blast Cells % (Manual) TNP Plasma Cell % (Manual) TNP Abs Neuts (Manual) TNP Lymphocytes # (Manual) Monocytes # (Manual) Eosinophils # (Manual) Platelet Estimate Not Reportable Plt Morphology Comment Not Reportable RBC Morphology Not Reportable Hypochromasia VBG pH 7.36 VBG pCO2 21 VBG pO2 52 VBG HCO3 12 L VBG O2 Saturation TNP VBG Base Excess -12.1 Anion Gap Cancelled Estim Creat Clear Calc Cancelled Estimated GFR Cancelled Random Glucose Cancelled Calcium Cancelled Phosphorus Cancelled Magnesium Cancelled Total Bilirubin Cancelled AST Cancelled ALT Cancelled Alkaline Phosphatase Cancelled Total Protein Cancelled Albumin Cancelled Triglycerides Cancelled Random Vancomycin 25.5 H* 8.4 L 01/17/25 01/17/25 06:38 06:49 MCV 91.2 MCH 28.8 MCHC 31.5 RDW 13.8 Plt Count 266 MPV 9.6 Immature Gran % (Auto) Cancelled Neut % (Auto) Cancelled Lymph % (Auto) Cancelled [place] % (Auto) Cancelled Eos % (Auto) Cancelled Baso % (Auto) Cancelled Lymph # (Auto) Cancelled [place] # (Auto) Cancelled Eos # (Auto) Cancelled Baso # (Auto) Cancelled Abs Immat Gran (auto) Cancelled Absolute Neuts (auto) Cancelled Absolute Nucleated RBC 0.000 Nucleated RBC % (auto) 0.0 Neutrophils % (Manual) 79 H Band Neutrophils % 9 H Lymphocytes % (Manual) 10 L Atypical Lymphs % (Man) Monocytes % (Manual) 1 L Eosinophils % (Manual) 1 Basophils % (Manual) Metamyelocytes % Myelocytes % Promyelocytes % Blast Cells % (Manual) Plasma Cell % (Manual) Abs Neuts (Manual) 8.4 H Lymphocytes # (Manual) 1.0 L Monocytes # (Manual) 0.1 Eosinophils # (Manual) 0.1 Platelet Estimate NORMAL Plt Morphology Comment NORMAL RBC Morphology NOTED Hypochromasia 1+ (5-14) VBG pH 7.45 H VBG pCO2 33 VBG pO2 61 VBG HCO3 23 VBG O2 Saturation 90.0 VBG Base Excess 0.0 Anion Gap 12 Estim Creat Clear Calc 43.0 Estimated GFR 45 Random Glucose 129 H Calcium 8.0 L D Phosphorus 2.1 L Magnesium 2.1 Total Bilirubin 0.6 AST 31 ALT < 6 Alkaline Phosphatase 59 Total Protein 6.3 L Albumin 3.0 L Triglycerides 117 Random Vancomycin <Gabi Victoria PA-C - Last Filed: 01/17/25 08:52> Microbiology Microbiology Results: Microbiology 01/15/25 10:01 Blood Culture - Preliminary Blood - Venous No growth after 48 hours. 01/15/25 09:58 Blood Culture - Preliminary Blood - Venous No growth after 24 hours. <Gabi Victoria PA-C - Last Filed: 01/17/25 08:52> Procedures Date of Service Date of Service: 01/17/25 <Gabi Victoria PA-C - Last Filed: 01/17/25 08:52> 01/17/25 <Alvaro Oneil MD - Last Filed: 01/17/25 13:33> Progress Note: A&P Assessment and plan (1) Intra-abdominal abscess post-procedure: Status: Acute <Gabi Victoria PA-C - Last Filed: 01/17/25 08:52> (2) Septic shock: Status: Acute <Gabi Victoria PA-C - Last Filed: 01/17/25 08:52> Assessment and Plan: 64-year-old female patient with a complicated surgical history, s/p multiple abdominal procedures most recently a [place] colectomy [place] [facility] [place] presenting with abdominal pain, nausea/vomiting found to have CT abdomen and pelvis fluid collection in the pelvis with an air pocket which may indicate an abscess. Remains in ICU for septic shock requiring pressors. She reports feeling overall better no significant abd pain, nausea/vomiting. Abd soft with mild incisional tenderness. WBC now normalized but remains intermittently febrile. Pressors gradually being weaned, good UOP. Cont IV abx and PPN for now. Encouraged OOB at least to recliner today, incentive spirometry. Plan for repeat CT scan today. Further plan dependent on clinical course but surgical intervention would be extremely difficult given recent post op status and multiple previous abd surgeries and remains last resort. Further restorative measures as per ICU team. Patient comfortable with plan. <Gabi Victoria PA-C - Last Filed: 01/17/25 08:52> 64-year-old female patient with a complicated surgical history, s/p multiple abdominal procedures most recently a subtotal colectomy and hernia [place] [facility] presenting with abdominal pain, nausea/vomiting found to have CT abdomen and pelvis fluid collection in the pelvis with an air pocket which may indicate an abscess. Remains in ICU for septic shock requiring pressors. She reports feeling overall better no significant abd pain, nausea/vomiting. Abd soft with mild incisional tenderness. WBC now normalized but remains intermittently febrile. Pressors gradually being weaned, good UOP. Cont IV abx and PPN for now. Encouraged OOB at least to recliner today, incentive spirometry. Plan for repeat CT scan today. Further plan dependent on clinical course but surgical intervention would be extremely difficult given recent post op status and multiple previous abd surgeries and remains last resort. Further restorative measures as per ICU team. Patient comfortable with plan. Agree with the above assessment and plan. CT A/P reviewed: increased fluid collections, postoperative changes, possible interloop abscess or postoperative fluid collections. Dramatic drop in WBC today down to normal from 20K. Continue supportive care, antibiotics. <Alvaro Oneil MD - Last Filed: 01/17/25 13:33> Time Spent With Patient Time: Total time managing care of this patient today ____ minutes. <Gabi Victoria PA-C - Last Filed: 01/17/25 08:52> Quality Stroke Does the patient have a stroke diagnosis?: No <Gabi Victoria PA-C - Last Filed: 01/17/25 08:52> VTE Prior VTE?: No <Gabi Victoria PA-C - Last Filed: 01/17/25 08:52> VTE Risk Level:: Medical - moderate - high <STAN Wilder Last Filed: 01/17/25 08:52> VTE Device Contraindication: N/A - Device Ordered <Gabi Victoria PA-C - Last Filed: 01/17/25 08:52> VTE Drug Contraindication: N/A - Med Ordered <STAN Wilder Last Filed: 01/17/25 08:52>
--- NOTE | 2025-01-17 09:45 | PM.CCPN ---
Subjective Subjective Date of Service: 01/17/25 Interval History: 64-year-old lady with underlying history of diastolic dysfunction, CAD, IBS, recent subtotal colectomy [place] her[place] [facility]/07/[place] with ileostomy presented today complain of a 2 day history of worsening abdominal pain. On ER evaluation patient hypotensive with poor response to initial IV fluid resuscitation requiring pressor support. On CT imaging patient with likely abdominal abscess with gas collection. Patient refused transferred to [facility]. She was evaluated by surgical team with current plans for non operative management with antibiotics and close monitoring. No events overnight. Pressor requirements continue to improve. Abdominal exam remains benign. Critical Care Time (minutes): 45 Physical Exam Vital Signs: Vital Signs: Last Vital Signs Temp 100.4 F 01/17/25 09:00 Pulse 84 01/17/25 09:00 Resp 18 01/17/25 09:00 BP 103/55 L 01/17/25 09:00 Pulse Ox 95 01/17/25 09:00 O2 Del Method Nasal Cannula 01/17/25 09:00 O2 Flow Rate 2 01/17/25 09:00 BMI result Body Mass Index 28.9 Const: General: no acute distress, alert and awake Eyes: Sclerae: sclerae normal EOM: EOMs intact bilaterally Neck: Neck: Yes no lymphadenopathy, Yes trachea midline and Yes supple Resp: Effort & Inspection: normal respiratory effort and no respiratory distress Auscultation: clear to auscultation bilaterally Cardio: Rate: regular rate Rhythm: regular rhythm Heart sounds: no gallops, no murmurs and no rubs GI: Other: Ileostomy with output Palpation (GI): Soft to palpation, Tenderness to palpation present (GI), no guarding and not rigid Auscultation: normal bowel sounds Extrem: General: Yes no pedal edema, No clubbing and No cyanosis Objective Data Labs 01/17/25 06:38 01/17/25 06:38 Labs: Laboratory Results - last 24 hr 01/16/25 01/17/25 01/17/25 16:22 05:28 05:40 WBC TNP RBC TNP Hgb TNP Hct TNP MCV TNP MCH TNP MCHC TNP RDW TNP Plt Count TNP MPV TNP Immature Gran % (Auto) Cancelled Neut % (Auto) Cancelled Lymph % (Auto) Cancelled [place] % (Auto) Cancelled Eos % (Auto) Cancelled Baso % (Auto) Cancelled Lymph # (Auto) Cancelled [place] # (Auto) Cancelled Eos # (Auto) Cancelled Baso # (Auto) Cancelled Abs Immat Gran (auto) Cancelled Absolute Neuts (auto) Cancelled Absolute Nucleated RBC TNP Nucleated RBC % (auto) TNP Neutrophils % (Manual) TNP Band Neutrophils % TNP Lymphocytes % (Manual) TNP Atypical Lymphs % (Man) TNP Monocytes % (Manual) TNP Eosinophils % (Manual) TNP Basophils % (Manual) TNP Metamyelocytes % TNP Myelocytes % TNP Promyelocytes % TNP Blast Cells % (Manual) TNP Plasma Cell % (Manual) TNP Abs Neuts (Manual) TNP Lymphocytes # (Manual) Monocytes # (Manual) Eosinophils # (Manual) Platelet Estimate Not Reportable Plt Morphology Comment Not Reportable RBC Morphology Not Reportable Hypochromasia VBG pH 7.36 VBG pCO2 21 VBG pO2 52 VBG HCO3 12 L VBG O2 Saturation TNP VBG Base Excess -12.1 Sodium Cancelled Potassium Cancelled Chloride Cancelled Carbon Dioxide Cancelled Anion Gap Cancelled BUN Cancelled Creatinine Cancelled Estim Creat Clear Calc Cancelled Estimated GFR Cancelled Random Glucose Cancelled Calcium Cancelled Phosphorus Cancelled Magnesium Cancelled Total Bilirubin Cancelled AST Cancelled ALT Cancelled Alkaline Phosphatase Cancelled Total Protein Cancelled Albumin Cancelled Triglycerides Cancelled Random Vancomycin 25.5 H* 8.4 L 01/17/25 01/17/25 06:38 06:49 WBC 9.5 RBC 2.85 L Hgb 8.2 L Hct 26.0 L MCV 91.2 MCH 28.8 MCHC 31.5 RDW 13.8 Plt Count 266 MPV 9.6 Immature Gran % (Auto) Cancelled Neut % (Auto) Cancelled Lymph % (Auto) Cancelled [place] % (Auto) Cancelled Eos % (Auto) Cancelled Baso % (Auto) Cancelled Lymph # (Auto) Cancelled [place] # (Auto) Cancelled Eos # (Auto) Cancelled Baso # (Auto) Cancelled Abs Immat Gran (auto) Cancelled Absolute Neuts (auto) Cancelled Absolute Nucleated RBC 0.000 Nucleated RBC % (auto) 0.0 Neutrophils % (Manual) 79 H Band Neutrophils % 9 H Lymphocytes % (Manual) 10 L Atypical Lymphs % (Man) Monocytes % (Manual) 1 L Eosinophils % (Manual) 1 Basophils % (Manual) Metamyelocytes % Myelocytes % Promyelocytes % Blast Cells % (Manual) Plasma Cell % (Manual) Abs Neuts (Manual) 8.4 H Lymphocytes # (Manual) 1.0 L Monocytes # (Manual) 0.1 Eosinophils # (Manual) 0.1 Platelet Estimate NORMAL Plt Morphology Comment NORMAL RBC Morphology NOTED Hypochromasia 1+ (5-14) VBG pH 7.45 H VBG pCO2 33 VBG pO2 61 VBG HCO3 23 VBG O2 Saturation 90.0 VBG Base Excess 0.0 Sodium 131 L Potassium 3.3 Chloride 101 Carbon Dioxide 21 L Anion Gap 12 BUN 21 H Creatinine 1.21 Estim Creat Clear Calc 43.0 Estimated GFR 45 Random Glucose 129 H Calcium 8.0 L D Phosphorus 2.1 L Magnesium 2.1 Total Bilirubin 0.6 AST 31 ALT < 6 Alkaline Phosphatase 59 Total Protein 6.3 L Albumin 3.0 L Triglycerides 117 Random Vancomycin Microbiology Microbiology Results: Microbiology 01/15/25 10:01 Blood - Venous Blood Culture - Preliminary No growth after 48 hours. 01/15/25 09:58 Blood - Venous Blood Culture - Preliminary No growth after 24 hours. Progress Note: A&P Assessment and plan (1) CAD (coronary artery disease): Status: Acute (2) PVC (premature ventricular contraction): Status: Acute (3) Ileostomy in place: Status: Acute (4) Intra-abdominal abscess post-procedure: Status: Acute (5) Septic shock: Status: Acute Plan Assessment: 64-year-old lady with recent subtotal colectomy/hernia repair at [facility] [place]07/[place] admitted with postoperative abscess, evaluated by General surgery, now with conservative management with antibiotics/close monitoring Plan: Neuro: No acute issues. Cardiac: Septic shock, continue to titrate off pressor support as tolerated, improving. Underlying history of CAD. Pulmonary: No acute issues. Renal: No acute issues. Endo: No acute issues. GI: Abdominal abscess, likely postprocedure complication. General surgery service care appreciated. No plans for operative management at this time. Continue empiric antibiotic/IV fluid support. Repeat CT abdomen today. ID: Empiric broad-spectrum coverage for intra-abdominal process. Heme/Onc: No acute issues. Psych: No acute issues. Miscellaneous: No acute issues. Prophylaxis: Heparin, ppi Diet: PPN Critical care time spent: 45 minutes Quality Stroke Does the patient have a stroke diagnosis?: No VTE Prior VTE?: No VTE Risk Level:: Medical - moderate - high VTE Device Contraindication: N/A - Device Ordered VTE Drug Contraindication: N/A - Med Ordered
--- NOTE | 2025-01-17 09:50 | MHC.CLN ---
F/U DISCUSSED AT ROUNDS WITH MD PLAN TO SWITCH TO TPN-PT WITH [facility] REVIEWED LABS DISCUSSED WITH PHARMACY RECOMMEND TPN AT MAX GOAL RATE OF 70ML/HR WITH 25G LIPIDS TO PROVIDE 1443 TOTAL KCALS (25KCALS/KG BASED ON CMW), 252G DEXTROSE, 84G PROTEIN (1.4G/KG) REPLETE LYTES NEEDED RD CAN BE REACHED VIA TIGER CONNECT DURING OFF HOURS IF NEEDED
[2025-01-17] MEDS: Potassium Phosphate/NS 15 MMOL/250 ML PLAST..BAG 62.5 MMOL IV ×2 (10:03→14:18)
[2025-01-17] MEDS: iohexoL 350 MG/ML 100 ML INFUS..BTL IV (11:36)
--- NOTE | 2025-01-17 12:41 | MHC.CM.PN ---
PT REMAINS IN ICU ON PPN AND IS ON PRESSOR SUPPORT . CM WILL CONTINUE TO FOLLOW FOR ANY CHANGE TO DC PLAN.
--- NOTE | 2025-01-17 16:34 | HO.OSTOMY ---
Ostomy Consult: Initial 64yr old female admitted to [facility] on 01/15/25 with complex medical history see H&P and notes for details. She has a ileostomy that she has had for over a year at this time. She reports continued independence with care of the pouch and stoma. The stoma was observed through the pouch and appears pink and moist. Green bilious stool noted in pouch. The Pouch was not leaking no change needed at this time. The patient was noted to be in a convex pouch by coloplast - she is requesting continued use of these pouches while inpatient. I brought to the bedside 3 pouches Coloplast [id number] only available from the wound nurse, she was also provided with powder and skin prep that she reports she needs and elastic barrier C strips to wrap around pouch. No teaching needed and should more supplies be needed prior to discharge please TT wound care nurse. Wound Care consult for midline incision - mid incision with open moist area observed. no current drainage noted - no erythema noted. No s/s of infection noted however the tissue remains open - I would recommend Durafiber AG for moisture management and to allow for moist wound healing. Midline Incision: Cleanse with NS moist gauze, pat dry. Apply small piece of Durafiber AG to open area cover with dry gauze. Change every other day. Ostomy care: Patient is independent - Coloplast [id number] only available from the wound nurse, should more supplies be needed prior to discharge please TT wound care nurse.
--- NOTE | 2025-01-17 18:11 | PC.NURSE ---
Assumed care of patient 0700. Antibiotics (IV zosyn and IV Vanco), KPhos, and Albumin given per NOV. Tylenol IV 1000 mg given, fever improved from 101.1 to 99.1F 10:[address] abdomen with contrast. RN and transport accompanied patient. Wound RN consult to bedside approx 15:00. Per RN place small durafiber and gauze dsg to midline incision wet area. Remainder of incision is CDI, dry scabbed areas. Patient provided appropriate ostomy bags for changing bag as needed. Pt up to recliner chair per surgical consult approx 11:30-15:00. Pt tolerated well, prn Dilaudid IV given prior to activity. Erwin removed 14:30. Patient voided once 17:00. DTV again 23:00 for void trial. Pt assisted with repositioning Q2H. Pt strength increasing. Now 1 assist pivot with walker.
--- NOTE | 2025-01-17 19:32 | PM.EVENT ---
Documented by User: Anais John NP 01/17/25 19:40 Event Note Date of Service: 01/17/25 Event Note: One set of blood cultures reported positive at 54 hours for Gram-positive cocci in clusters in the anaerobic bottle. The patient initially presented septic shock. She is now afebrile, WBC is now normal. Will continue broad-spectrum antibiotics and repeat blood cultures and lactate. Time Spent With Patient Time: Total time managing care of this patient today ____ minutes. Documented by User: Lucien East MD 01/18/25 09:55 Event Note Date of Service: 01/18/25
[2025-01-17] MEDS: Mirtazapine 15 MG TABLET PO (19:52)
[2025-01-17] MEDS: Parenteral Nutrition 1,680 ML 70 ML IV (21:19)
[2025-01-18] VITALS (32 sets, daily range): BP systolic 91–123; BP diastolic 50–86; PULSE 90–104; RESP 8–24; TEMP 36.3–37.4; O2SAT 93–100; BMI 29.6
[2025-01-18] MEDS: Albumin Human 25 % 100 ML IV (01:31)
--- NOTE | 2025-01-18 03:39 | HE.ICUCC ---
ICU Critical Care Nursing Note Assumed care of patient A&Ox4 SR on telemetry LS clear, 2L O2 NC at night , unable to tolerate CPAP Healing abdominal midline incision, edges well approximated. Positive BS, Ileostomy draining brown liquid Patient up to commode with assist. Levophed drip infusing, VSS
[2025-01-18] MEDS: Piperacillin Sodium/Tazobactam 3.375 GM in 0.9 % Sodium Chloride 50 ML IV ×4 (04:06→21:01)
[2025-01-18 04:40] LABS: VBG Base Excess -0.4 mmol/L; VBG HCO3 23 mmol/L (22-26); VBG pCO2 35 mmHg; VBG pH 7.42 (7.32-7.43); VBG pO2 40 mmHg
[2025-01-18 05:05] LABS: Mean Corpuscular HGB Conc 32.7 g/dl (31.0-35.0); Mean Corpuscular Hemoglobin 29.4 pg (27.0-33.0); Mean Platelet Volume 9.6 fL (9.4-12.3); NRBC Pct Auto 0.3 /100WBC (0.0-0.2); Platelet Count 203 X10*3/uL (160-400); Red Blood Count 2.31 X10*6/uL (4.20-5.50); Red Cell Distribution Width 13.9 % (11.0-16.0); White Blood Count 7.6 X10*3/uL (4.8-10.8)
[2025-01-18 05:17] LABS: Venous Blood Gas Refer to POC result
[2025-01-18 05:23] LABS: Alanine Aminotransferase < 6 U/L (0-31); Albumin Level 3.6 g/dL (3.5-5.0); Alkaline Phosphatase 44 U/L (39-117); Anion Gap 13 (12-20); Aspartate Amino Transferase 29 U/L (5-31); Bilirubin Total 0.5 mg/dL (0.0-1.0); Blood Urea Nitrogen 19 mg/dL (9-16); Calcium 8.3 mg/dL (8.4-10.2); Carbon Dioxide 22 mmol/L (22-29); Chloride 103 mmol/L (96-108); Creatinine Clr Calc Pharmacy 57.1; Estimated Glomerular Filt Rate > 60; Glucose Random 139 mg/dL (60-115); Magnesium 2.2 mg/dL (1.6-2.6); Phosphorus 1.6 mg/dL (2.7-4.5); Potassium 3.6 mmol/L (3.3-5.1); Sodium 134 mmol/L (135-145); Total Protein 6.4 g/dL (6.5-8.0)
[2025-01-18 05:24] LABS: Hematocrit 20.8 % (37.0-47.0); Hemoglobin 6.8 g/dl (12.0-16.0)
[2025-01-18] MEDS: Norepinephrine Bitartrate/D5W 8 MG/250 ML PLAST..BAG 3.78 MG IVCONT (05:25)
[2025-01-18] MEDS: Pantoprazole Sodium 40 MG/10 ML VIAL IVPUSH ×2 (05:29→15:59)
[2025-01-18] MEDS: Heparin Sodium,Porcine 5,000 UNIT/ML VIAL 5000 UNIT SUBCUT ×3 (05:29→21:11)
[2025-01-18] MEDS: Potassium Phosphate/NS 15 MMOL/250 ML PLAST..BAG 62.5 MMOL IV ×2 (05:56→10:17)
[2025-01-18 05:57] LABS: Band Neutrophils Percent 13 % (3-5); Eosinophils Absolute Manual 0.2 X10*3/uL (0.0-0.4); Eosinophils Percent Manual 3 % (0-4); Lymphocytes Absolute Manual 1.3 X10*3/uL (1.2-4.9); Lymphocytes Percent Manual 17 % (20-40); Monocytes Absolute Manual 0.2 X10*3/uL (0.1-1.2); Monocytes Percent Manual 2 % (2-11); Neutrophils Absolute Manual 5.9 X10*3/uL (2.0-8.3); Neutrophils Percent Manual 65 % (45-73)
[2025-01-18 05:58] LABS: RBC Morphology NOTED
[2025-01-18 05:59] LABS: Burr Cells 1+ (0-2) /OIF; Hypochromasia 1+ (5-14) /OIF; Platelet Estimate NORMAL (NORMAL); Platelet Morphology Comment NORMAL; Polychromasia 1+ (0-2) /OIF
[2025-01-18 06:10] LABS: Vancomycin Random 17.7 mcg/mL (15-20)
[2025-01-18] MEDS: HYDROmorphone HCl 2 MG/ML VIAL IVPUSH ×5 (08:10→21:15)
[2025-01-18] MEDS: vancomycin HCL 500 MG in 0.9 % Sodium Chloride 100 ML 110 MG IV ×2 (08:53→21:02)
--- NOTE | 2025-01-18 09:55 | PM.CCPN ---
Subjective Subjective Date of Service: 01/18/25 Interval History: 64-year-old lady with underlying history of diastolic dysfunction, CAD, IBS, recent subtotal colectomy and hernia repair at [facility] [place] on 01/07/2025 with ileostomy presented today complain of a 2 day history of worsening abdominal pain. On ER evaluation patient hypotensive with poor response to initial IV fluid resuscitation requiring pressor support. On CT imaging patient with likely abdominal abscess with gas collection. Patient refused transferred to [facility] [place]. She was evaluated by surgical team with current plans for non operative management with antibiotics and close monitoring. Follow-up CT chest on 01/17/2025 with multiple intra-abdominal collections. No events overnight. Titrated off pressor support. Critical Care Time (minutes): 45 Physical Exam Vital Signs: Vital Signs: Last Vital Signs Temp 97.3 F 01/18/25 08:00 Pulse 92 01/18/25 09:00 Resp 14 01/18/25 09:00 BP 91/55 L 01/18/25 09:00 Pulse Ox 98 01/18/25 09:00 O2 Del Method Nasal Cannula 01/18/25 09:00 O2 Flow Rate 2 01/18/25 09:00 BMI result Body Mass Index 29.6 Const: General: no acute distress, alert and awake Eyes: Sclerae: sclerae normal EOM: EOMs intact bilaterally Neck: Neck: Yes no lymphadenopathy, Yes trachea midline and Yes supple Resp: Effort & Inspection: normal respiratory effort and no respiratory distress Auscultation: clear to auscultation bilaterally Cardio: Rate: regular rate Rhythm: regular rhythm Heart sounds: no gallops, no murmurs and no rubs GI: Other: Ileostomy with output Palpation (GI): Soft to palpation, Tenderness to palpation present (GI), no guarding and not rigid Auscultation: normal bowel sounds Extrem: General: No clubbing and No cyanosis Objective Data Labs 01/18/25 04:32 01/18/25 04:32 Labs: Laboratory Results - last 24 hr 01/17/25 01/18/25 01/18/25 20:11 04:32 04:36 WBC 7.6 RBC 2.31 L Hgb 6.8 L* Hct 20.8 L* MCV 90.0 MCH 29.4 MCHC 32.7 RDW 13.9 Plt Count 203 MPV 9.6 Immature Gran % (Auto) Cancelled Neut % (Auto) Cancelled Lymph % (Auto) Cancelled [place] % (Auto) Cancelled Eos % (Auto) Cancelled Baso % (Auto) Cancelled Lymph # (Auto) Cancelled [place] # (Auto) Cancelled Eos # (Auto) Cancelled Baso # (Auto) Cancelled Abs Immat Gran (auto) Cancelled Absolute Neuts (auto) Cancelled Absolute Nucleated RBC 0.020 H Nucleated RBC % (auto) 0.3 H Neutrophils % (Manual) 65 Band Neutrophils % 13 H Lymphocytes % (Manual) 17 L Monocytes % (Manual) 2 Eosinophils % (Manual) 3 Abs Neuts (Manual) 5.9 Lymphocytes # (Manual) 1.3 Monocytes # (Manual) 0.2 Eosinophils # (Manual) 0.2 Platelet Estimate NORMAL Plt Morphology Comment NORMAL RBC Morphology NOTED Polychromasia 1+ (0-2) Hypochromasia 1+ (5-14) Pasquale Cells 1+ (0-2) VBG pH 7.42 VBG pCO2 35 VBG pO2 40 VBG HCO3 23 VBG O2 Saturation 65.0 VBG Base Excess -0.4 Sodium 134 L Potassium 3.6 Chloride 103 Carbon Dioxide 22 Anion Gap 13 BUN 19 H Creatinine 0.91 Estim Creat Clear Calc 57.1 Estimated GFR > 60 Random Glucose 139 H Lactic Acid 2.0 Calcium 8.3 L Phosphorus 1.6 L Magnesium 2.2 Total Bilirubin 0.5 AST 29 ALT < 6 Alkaline Phosphatase 44 Total Protein 6.4 L Albumin 3.6 Random Vancomycin Blood Type Antibody Screen Crossmatch 01/18/25 05:40 WBC RBC Hgb Hct MCV MCH MCHC RDW Plt Count MPV Immature Gran % (Auto) Neut % (Auto) Lymph % (Auto) [place] % (Auto) Eos % (Auto) Baso % (Auto) Lymph # (Auto) [place] # (Auto) Eos # (Auto) Baso # (Auto) Abs Immat Gran (auto) Absolute Neuts (auto) Absolute Nucleated RBC Nucleated RBC % (auto) Neutrophils % (Manual) Band Neutrophils % Lymphocytes % (Manual) Monocytes % (Manual) Eosinophils % (Manual) Abs Neuts (Manual) Lymphocytes # (Manual) Monocytes # (Manual) Eosinophils # (Manual) Platelet Estimate Plt Morphology Comment RBC Morphology Polychromasia Hypochromasia Pasquale Cells VBG pH VBG pCO2 VBG pO2 VBG HCO3 VBG O2 Saturation VBG Base Excess Sodium Potassium Chloride Carbon Dioxide Anion Gap BUN Creatinine Estim Creat Clear Calc Estimated GFR Random Glucose Lactic Acid Calcium Phosphorus Magnesium Total Bilirubin AST ALT Alkaline Phosphatase Total Protein Albumin Random Vancomycin 17.7 Blood Type O Positive Antibody Screen NEGATIVE Crossmatch See Detail Microbiology Microbiology Results: Microbiology 01/15/25 09:58 Blood - Venous Blood Culture - Preliminary Prelim: GPC Gram Stain only 01/15/25 10:01 Blood - Venous Blood Culture - Preliminary No growth after 48 hours. Progress Note: A&P Assessment and plan (1) Postoperative complication: Status: Acute (2) CAD (coronary artery disease): Status: Acute (3) Intra-abdominal abscess post-procedure: Status: Acute (4) Ileostomy in place: Status: Acute Plan Assessment: 64-year-old lady with recent subtotal colectomy/hernia repair at [facility] [place] on 01/07/2025 admitted with postoperative abscess, evaluated by General surgery, now with conservative management with antibiotics/close monitoring Plan: Neuro: No acute issues. Cardiac: Septic shock, resolved, titrated off pressor support. Underlying history of CAD. Pulmonary: No acute issues. Renal: No acute issues. Endo: No acute issues. GI: Abdominal abscess, likely postprocedure complication. General surgery service care appreciated. No plans for operative management at this time. Continue empiric antibiotic/IV fluid support. Repeat CT abdomen on 01/17/2025 now with multiple abdominal collections. ID: Empiric broad-spectrum coverage for intra-abdominal process. Positive blood culture 1/2 is likely a contaminant. Repeat cultures are pending. Heme/Onc: No acute issues. Psych: No acute issues. Miscellaneous: No acute issues. Prophylaxis: Heparin, ppi Diet: TPN Critical care time spent: 45 minutes Quality Stroke Does the patient have a stroke diagnosis?: No VTE Prior VTE?: No VTE Risk Level:: Medical - moderate - high VTE Device Contraindication: N/A - Device Ordered VTE Drug Contraindication: N/A - Med Ordered
--- NOTE | 2025-01-18 10:15 | P.PNGS_ITS ---
Subjective Subjective Date of Service: 01/18/25 Interval history: States that she feels weak and tired this morning Some shortness of breath as well Note of drop in hemoglobin from this morning Physical Exam 2 Vital Signs: Vital Signs: Last Vital Signs Temp 98.2 F 01/18/25 10:08 Pulse 96 01/18/25 10:08 Resp 20 01/18/25 10:08 BP 116/66 01/18/25 10:08 Pulse Ox 98 01/18/25 09:00 O2 Del Method Nasal Cannula 01/18/25 09:00 O2 Flow Rate 2 01/18/25 09:00 BMI result Body Mass Index 29.6 Const: Other: A little short of breath with speaking Resp: Other: Some shortness of breath Cardio: Rate: regular rate GI: Other: Not distended, stoma with good output, incision clean Palpation (GI): Soft to palpation and no guarding Objective Data Active Medications Heparin Sodium (Porcine) (Heparin Sodium,Porcine 5,000 Unit/Ml Vial) 5,000 unit SUBCUT Q8H ARISTIDES Last Admin: 01/18/25 05:29 Dose: 5,000 unit Documented By: GILBERT Hydromorphone HCl (Hydromorphone Hcl 2 Mg/Ml Vial) 2 mg IVPUSH Q2H PRN; Protocol PRN Reason: Pain, Severe (Pain Scale 7-10) Last Admin: 01/18/25 08:10 Dose: 2 mg Documented By: LUIS Norepinephrine Bitartrate (Levophed) 8 mg in 250 mls @ 0 mls/hr IVCONT .Q0M ARISTIDES; Protocol Last Titration: 01/18/25 08:54 Dose: 0 mcg/kg/min, 0 mls/hr Documented By: LUIS Piperacillin Sod/Tazobactam (Sod 3.375 gm/ Sodium Chloride) 50 mls @ 100 mls/hr IV Q6H ARISTIDES Last Infusion: 01/18/25 04:36 Dose: Infused Documented By: GILBERT Vancomycin HCl 500 mg/ Sodium (Chloride) 110 mls @ 110 mls/hr IV Q12H ARISTIDES Last Admin: 01/18/25 08:53 Dose: 110 mls/hr Documented By: LUIS Nutrition (Parenteral) (Parenteral Nutrition) 1,680 mls @ 70 mls/hr IV .Q24H ARISTIDES; Protocol Stop: 01/18/25 20:59 Last Admin: 01/17/25 21:19 Dose: 70 mls/hr Documented By: GILBERT Potassium Phosphate (Kphos) 15 mmol in 250 mls @ 62.5 mls/hr IV Q4H ARISTIDES Stop: 01/18/25 13:29 Last Admin: 01/18/25 05:56 Dose: 62.5 mls/hr Documented By: GILBERT Nutrition (Parenteral) (Parenteral Nutrition) 1,680 mls @ 70 mls/hr IV .Q24H ARISTIDES; Protocol Stop: 01/19/25 20:59 Mirtazapine (Mirtazapine 15 Mg Tablet) 15 mg PO BEDTIME ARISTIDES Last Admin: 01/17/25 19:52 Dose: 15 mg Documented By: GILBERT Ondansetron HCl (Ondansetron Hcl 4 Mg/2 Ml Vial) 4 mg IVPUSH Q4H PRN PRN Reason: Nausea and Vomiting Last Admin: 01/16/25 08:29 Dose: 4 mg Documented By: LUIS Pantoprazole Sodium (Pantoprazole Sodium 40 Mg/10 Ml Vial) 40 mg IVPUSH BID@0630,1630 [facility] Last Admin: 01/18/25 05:29 Dose: 40 mg Documented By: GILBERT Pharmacy Consult (Consult Rx Vancomycin Dosing) 1 each MISCELLANE DAILY PRN PRN Reason: Consult order Pharmacy Consult (Consult Rx Parenteral Nutrition Ordering) 1 each MISCELLANE DAILY PRN PRN Reason: Consult order Labs 01/18/25 04:32 01/18/25 04:32 Labs: Laboratory Results - last 24 hr 01/17/25 01/18/25 01/18/25 20:11 04:32 04:36 MCV 90.0 MCH 29.4 MCHC 32.7 RDW 13.9 Plt Count 203 MPV 9.6 Immature Gran % (Auto) Cancelled Neut % (Auto) Cancelled Lymph % (Auto) Cancelled [place] % (Auto) Cancelled Eos % (Auto) Cancelled Baso % (Auto) Cancelled Lymph # (Auto) Cancelled [place] # (Auto) Cancelled Eos # (Auto) Cancelled Baso # (Auto) Cancelled Abs Immat Gran (auto) Cancelled Absolute Neuts (auto) Cancelled Absolute Nucleated RBC 0.020 H Nucleated RBC % (auto) 0.3 H Neutrophils % (Manual) 65 Band Neutrophils % 13 H Lymphocytes % (Manual) 17 L Monocytes % (Manual) 2 Eosinophils % (Manual) 3 Abs Neuts (Manual) 5.9 Lymphocytes # (Manual) 1.3 Monocytes # (Manual) 0.2 Eosinophils # (Manual) 0.2 Platelet Estimate NORMAL Plt Morphology Comment NORMAL RBC Morphology NOTED Polychromasia 1+ (0-2) Hypochromasia 1+ (5-14) Pasquale Cells 1+ (0-2) VBG pH 7.42 VBG pCO2 35 VBG pO2 40 VBG HCO3 23 VBG O2 Saturation 65.0 VBG Base Excess -0.4 Anion Gap 13 Estim Creat Clear Calc 57.1 Estimated GFR > 60 Random Glucose 139 H Lactic Acid 2.0 Calcium 8.3 L Phosphorus 1.6 L Magnesium 2.2 Total Bilirubin 0.5 AST 29 ALT < 6 Alkaline Phosphatase 44 Total Protein 6.4 L Albumin 3.6 Random Vancomycin Blood Type Antibody Screen Crossmatch 01/18/25 05:40 MCV MCH MCHC RDW Plt Count MPV Immature Gran % (Auto) Neut % (Auto) Lymph % (Auto) [place] % (Auto) Eos % (Auto) Baso % (Auto) Lymph # (Auto) [place] # (Auto) Eos # (Auto) Baso # (Auto) Abs Immat Gran (auto) Absolute Neuts (auto) Absolute Nucleated RBC Nucleated RBC % (auto) Neutrophils % (Manual) Band Neutrophils % Lymphocytes % (Manual) Monocytes % (Manual) Eosinophils % (Manual) Abs Neuts (Manual) Lymphocytes # (Manual) Monocytes # (Manual) Eosinophils # (Manual) Platelet Estimate Plt Morphology Comment RBC Morphology Polychromasia Hypochromasia [place] Cells VBG pH VBG pCO2 VBG pO2 VBG HCO3 VBG O2 Saturation VBG Base Excess Anion Gap Estim Creat Clear Calc Estimated GFR Random Glucose Lactic Acid Calcium Phosphorus Magnesium Total Bilirubin AST ALT Alkaline Phosphatase Total Protein Albumin Random Vancomycin 17.7 Blood Type O Positive Antibody Screen NEGATIVE Crossmatch See Detail Microbiology Microbiology Results: Microbiology 01/15/25 09:58 Blood Culture - Preliminary Blood - Venous Prelim: GPC Gram Stain only 01/15/25 10:01 Blood Culture - Preliminary Blood - Venous No growth after 48 hours. Procedures Date of Service Date of Service: 05/17/25 Progress Note: A&P Assessment and plan (1) Intra-abdominal abscess post-procedure: Status: Acute Assessment and Plan: Repeat CAT scan shows suggestion of interloop abscesses Most of these fluid collections appear thin Stoma functioning well Uncertain as to etiology drop in her hemoglobin - no blood per ileostomy output Would continue IV antibiotic treatment for her fluid collections after surgery in [place] [facility] Parenteral nutrition Follow hemoglobin She is getting 1 unit of packed RBC currently We will follow closely Time Spent With Patient Time: Total time managing care of this patient today ____ minutes. Quality Stroke Does the patient have a stroke diagnosis?: No VTE Prior VTE?: No VTE Risk Level:: Medical - moderate - high VTE Device Contraindication: N/A - Device Ordered VTE Drug Contraindication: N/A - Med Ordered
--- NOTE | 2025-01-18 15:42 | PM.EVENT ---
Event Note Date of Service: 01/18/25 Event Note: Resting comfortably Stable vital signs No fever today Abdomen remains soft Good stoma output Continue IV antibiotics Parenteral nutrition started Continue current care as per ICU Time Spent With Patient Time: Total time managing care of this patient today ____ minutes.
[2025-01-18] MEDS: Parenteral Nutrition 1,680 ML 70 ML IV (21:04)
[2025-01-18] MEDS: Mirtazapine 15 MG TABLET PO (21:11)
[2025-01-18 22:16] LABS: OBS Int Ctl Valid YES
[2025-01-18 22:17] LABS: OBS1 NEGATIVE (NEGATIVE)
[2025-01-19] VITALS (18 sets, daily range): BP systolic 96–138; BP diastolic 52–78; PULSE 87–107; RESP 8–20; TEMP 36.4–37.2; O2SAT 96–100; BMI 30.9
[2025-01-19] MEDS: HYDROmorphone HCl 2 MG/ML VIAL IVPUSH ×5 (02:47→22:11)
[2025-01-19] MEDS: Piperacillin Sodium/Tazobactam 3.375 GM in 0.9 % Sodium Chloride 50 ML IV ×4 (03:10→21:15)
[2025-01-19] MEDS: Heparin Sodium,Porcine 5,000 UNIT/ML VIAL 5000 UNIT SUBCUT ×3 (06:06→21:17)
[2025-01-19] MEDS: Pantoprazole Sodium 40 MG/10 ML VIAL IVPUSH ×2 (06:06→15:42)
[2025-01-19 06:27] LABS: Hematocrit 25.9 % (37.0-47.0); Hemoglobin 8.5 g/dl (12.0-16.0); Mean Corpuscular HGB Conc 32.8 g/dl (31.0-35.0); Mean Corpuscular Hemoglobin 29.8 pg (27.0-33.0); Mean Corpuscular Volume 90.9 fL (80.0-98.0); Mean Platelet Volume 9.4 fL (9.4-12.3); Platelet Count 193 X10*3/uL (160-400); Red Blood Count 2.85 X10*6/uL (4.20-5.50); Red Cell Distribution Width 14.1 % (11.0-16.0)
[2025-01-19 06:40] LABS: Vancomycin Trough 14.4 mcg/mL (10.0-20.0)
[2025-01-19 06:43] LABS: Alanine Aminotransferase < 6 U/L (0-31); Albumin Level 2.9 g/dL (3.5-5.0); Alkaline Phosphatase 65 U/L (39-117); Anion Gap 11 (12-20); Aspartate Amino Transferase 24 U/L (5-31); Bilirubin Total 0.7 mg/dL (0.0-1.0); Blood Urea Nitrogen 21 mg/dL (9-16); Calcium 8.3 mg/dL (8.4-10.2); Carbon Dioxide 22 mmol/L (22-29); Chloride 107 mmol/L (96-108); Creatinine Clr Calc Pharmacy 78.5; Estimated Glomerular Filt Rate > 60; Glucose Random 122 mg/dL (60-115); Magnesium 1.9 mg/dL (1.6-2.6); Phosphorus 2.4 mg/dL (2.7-4.5); Potassium 4.2 mmol/L (3.3-5.1); Sodium 136 mmol/L (135-145); Total Protein 6.2 g/dL (6.5-8.0)
--- NOTE | 2025-01-19 07:00 | HE.PHANOTE ---
VANCOMYCIN VANCO TROUGH 14.4. CREATININE DECREASING SIGNIFICANTLY ( 1.21, 0.91 AND THEN TODAY 0.67). INCREASING DOSE TO 750 MG Q12H, NEXT LEVEL 01/20/25 @0600
[2025-01-19 07:26] LABS: Band Neutrophils Percent 1 % (3-5); Basophils Abs Manual 0.1 X10*3/uL (0.0-0.2); Basophils Percent Manual 1 % (0-2); Eosinophils Absolute Manual 0.1 X10*3/uL (0.0-0.4); Eosinophils Percent Manual 1 % (0-4); Lymphocytes Absolute Manual 1.1 X10*3/uL (1.2-4.9); Lymphocytes Percent Manual 8 % (20-40); Metamyelocytes Absolute 0.1 X10*3/uL; Metamyelocytes Percent 1 %; Monocytes Absolute Manual 0.4 X10*3/uL (0.1-1.2); Monocytes Percent Manual 3 % (2-11); Neutrophils Percent Manual 85 % (45-73)
[2025-01-19 07:27] LABS: Platelet Estimate NORMAL (NORMAL); Platelet Morphology Comment NORMAL; RBC Morphology NORMAL
[2025-01-19] MEDS: vancomycin HCL 750 MG in 0.9 % Sodium Chloride 250 ML 265 MG IV (08:30)
--- NOTE | 2025-01-19 09:18 | PM.PNGS ---
Subjective Subjective Date of Service: 01/19/25 Interval history: No events overnight Remains short of breath No evidence of GI bleed Stoma functioning Physical Exam Vital Signs: Vital Signs: Last Vital Signs Temp 98.7 F 01/19/25 04:00 Pulse 87 01/19/25 07:00 Resp 13 01/19/25 07:00 BP 105/57 L 01/19/25 07:00 Pulse Ox 99 01/19/25 07:00 O2 Del Method Nasal Cannula 01/19/25 07:00 O2 Flow Rate 1 01/19/25 07:00 BMI result Body Mass Index 30.9 Const: Other: Some shortness of breath especially when talking General: comfortable Resp: Other: Some shortness of breath Cardio: Rate: regular rate GI: Other: Stoma with output Palpation (GI): Soft to palpation, not firm and no guarding Objective Data Active Medications Heparin Sodium (Porcine) (Heparin Sodium,Porcine 5,000 Unit/Ml Vial) 5,000 unit SUBCUT Q8H [facility] Last Admin: 01/19/25 06:06 Dose: 5,000 unit Documented By: ABHIJIT Hydromorphone HCl (Hydromorphone Hcl 2 Mg/Ml Vial) 2 mg IVPUSH Q2H PRN; Protocol PRN Reason: Pain, Severe (Pain Scale 7-10) Last Admin: 01/19/25 09:06 Dose: 2 mg Documented By: SEBASTIAN Piperacillin Sod/Tazobactam (Sod 3.375 gm/ Sodium Chloride) 50 mls @ 100 mls/hr IV Q6H [facility] Last Infusion: 01/19/25 03:40 Dose: Infused Documented By: ABHIJIT Nutrition (Parenteral) (Parenteral Nutrition) 1,680 mls @ 70 mls/hr IV .Q24H [facility]; Protocol Stop: 01/19/25 20:59 Last Admin: 01/18/25 21:04 Dose: 70 mls/hr Documented By: ABHIJIT Vancomycin HCl 750 mg/ Sodium (Chloride) 265 mls @ 265 mls/hr IV Q12H [facility] Last Admin: 01/19/25 08:30 Dose: 265 mls/hr Documented By: SEBASTIAN Mirtazapine (Mirtazapine 15 Mg Tablet) 15 mg PO BEDTIME [facility] Last Admin: 01/18/25 21:11 Dose: 15 mg Documented By: ABHIJIT Ondansetron HCl (Ondansetron Hcl 4 Mg/2 Ml Vial) 4 mg IVPUSH Q4H PRN PRN Reason: Nausea and Vomiting Last Admin: 01/16/25 08:29 Dose: 4 mg Documented By: LUIS Pantoprazole Sodium (Pantoprazole Sodium 40 Mg/10 Ml Vial) 40 mg IVPUSH BID@0630,1630 [facility] Last Admin: 01/19/25 06:06 Dose: 40 mg Documented By: ABHIJIT Pharmacy Consult (Consult Rx Vancomycin Dosing) 1 each MISCELLANE DAILY PRN PRN Reason: Consult order Pharmacy Consult (Consult Rx Parenteral Nutrition Ordering) 1 each MISCELLANE DAILY PRN PRN Reason: Consult order Labs 01/19/25 06:05 01/19/25 06:05 Labs: Laboratory Results - last 24 hr 01/18/25 01/18/25 01/19/25 05:40 21:20 06:05 MCV 90.9 MCH 29.8 MCHC 32.8 RDW 14.1 Plt Count 193 MPV 9.4 Immature Gran % (Auto) Cancelled Neut % (Auto) Cancelled Lymph % (Auto) Cancelled [place] % (Auto) Cancelled Eos % (Auto) Cancelled Baso % (Auto) Cancelled Lymph # (Auto) Cancelled [place] # (Auto) Cancelled Eos # (Auto) Cancelled Baso # (Auto) Cancelled Abs Immat Gran (auto) Cancelled Absolute Neuts (auto) Cancelled Absolute Nucleated RBC 0.000 Nucleated RBC % (auto) 0.0 Neutrophils % (Manual) 85 H Band Neutrophils % 1 L Lymphocytes % (Manual) 8 L Monocytes % (Manual) 3 Eosinophils % (Manual) 1 Basophils % (Manual) 1 Metamyelocytes % 1 Abs Neuts (Manual) 12.0 H Lymphocytes # (Manual) 1.1 L Monocytes # (Manual) 0.4 Eosinophils # (Manual) 0.1 Basophils # (Manual) 0.1 Metamyelocytes # 0.1 Platelet Estimate NORMAL Plt Morphology Comment NORMAL RBC Morphology NORMAL Anion Gap 11 L Estim Creat Clear Calc 78.5 Estimated GFR > 60 Random Glucose 122 H Calcium 8.3 L Phosphorus 2.4 L Magnesium 1.9 Total Bilirubin 0.7 AST 24 ALT < 6 Alkaline Phosphatase 65 Total Protein 6.2 L Albumin 2.9 L Stool Occult Blood NEGATIVE Vancomycin Trough 14.4 Crossmatch See Detail Microbiology Microbiology Results: Microbiology 01/17/25 20:11 Blood Culture - Preliminary Blood - Venous No growth after 24 hours. 01/17/25 20:11 Blood Culture - Preliminary Blood - Venous No growth after 24 hours. 01/15/25 09:58 Blood Culture - Preliminary Blood - Venous Prelim: GPC Gram Stain only 01/15/25 10:01 Blood Culture - Preliminary Blood - Venous No growth after 48 hours. Procedures Date of Service Date of Service: 01/19/25 Progress Note: A&P Assessment and plan (1) Intra-abdominal abscess post-procedure: Status: Acute Assessment and Plan: Interloop abscesses noted after subtotal colectomy, ileostomy in [facility] Vital signs more stable Hemoglobin steady after transfusion No obvious GI bleed Abdomen is soft and benign Stoma functioning well On clear liquids, may consider advancing diet slowly if she continues to remained stable On parenteral nutrition as well IV antibiotics Time Spent With Patient Time: Total time managing care of this patient today ____ minutes. Quality Stroke Does the patient have a stroke diagnosis?: No VTE Prior VTE?: No VTE Risk Level:: Medical - moderate - high VTE Device Contraindication: N/A - Device Ordered VTE Drug Contraindication: N/A - Med Ordered
--- NOTE | 2025-01-19 09:50 | PM.CCPN ---
Subjective Subjective Date of Service: 01/19/25 Interval History: 64-year-old lady with underlying history of diastolic dysfunction, CAD, IBS, recent subtotal colectomy and hernia repair at [facility] [place] on 01/07/2025 with ileostomy presented today complain of a 2 day history of worsening abdominal pain. On ER evaluation patient hypotensive with poor response to initial IV fluid resuscitation requiring pressor support. On CT imaging patient with likely abdominal abscess with gas collection. Patient refused transferred to [facility]. She was evaluated by surgical team with current plans for non operative management with antibiotics and close monitoring. Follow-up CT chest on 01/17/2025 with multiple intra-abdominal collections. No events overnight. Critical Care Time (minutes): 0 Physical Exam Vital Signs: Vital Signs: Last Vital Signs Temp 98.7 F 01/19/25 04:00 Pulse 87 01/19/25 07:00 Resp 13 01/19/25 07:00 BP 105/57 L 01/19/25 07:00 Pulse Ox 99 01/19/25 07:00 O2 Del Method Nasal Cannula 01/19/25 07:00 O2 Flow Rate 1 01/19/25 07:00 BMI result Body Mass Index 30.9 Const: General: no acute distress, alert and awake Eyes: Sclerae: sclerae normal EOM: EOMs intact bilaterally Neck: Neck: Yes no lymphadenopathy, Yes trachea midline and Yes supple Resp: Effort & Inspection: normal respiratory effort and no respiratory distress Auscultation: clear to auscultation bilaterally Cardio: Rate: tachycardic Rhythm: regular rhythm Heart sounds: no gallops, no murmurs and no rubs GI: Other: Ileostomy with output Palpation (GI): Soft to palpation, no guarding and not rigid Auscultation: normal bowel sounds Extrem: General: Yes no pedal edema, No clubbing and No cyanosis Objective Data Labs 01/19/25 06:05 01/19/25 06:05 Labs: Laboratory Results - last 24 hr 01/18/25 01/18/25 01/19/25 05:40 21:20 06:05 WBC 14.0 H RBC 2.85 L D Hgb 8.5 L D Hct 25.9 L D MCV 90.9 MCH 29.8 MCHC 32.8 RDW 14.1 Plt Count 193 MPV 9.4 Immature Gran % (Auto) Cancelled Neut % (Auto) Cancelled Lymph % (Auto) Cancelled [place] % (Auto) Cancelled Eos % (Auto) Cancelled Baso % (Auto) Cancelled Lymph # (Auto) Cancelled [place] # (Auto) Cancelled Eos # (Auto) Cancelled Baso # (Auto) Cancelled Abs Immat Gran (auto) Cancelled Absolute Neuts (auto) Cancelled Absolute Nucleated RBC 0.000 Nucleated RBC % (auto) 0.0 Neutrophils % (Manual) 85 H Band Neutrophils % 1 L Lymphocytes % (Manual) 8 L Monocytes % (Manual) 3 Eosinophils % (Manual) 1 Basophils % (Manual) 1 Metamyelocytes % 1 Abs Neuts (Manual) 12.0 H Lymphocytes # (Manual) 1.1 L Monocytes # (Manual) 0.4 Eosinophils # (Manual) 0.1 Basophils # (Manual) 0.1 Metamyelocytes # 0.1 Platelet Estimate NORMAL Plt Morphology Comment NORMAL RBC Morphology NORMAL Sodium 136 Potassium 4.2 Chloride 107 Carbon Dioxide 22 Anion Gap 11 L BUN 21 H Creatinine 0.67 Estim Creat Clear Calc 78.5 Estimated GFR > 60 Random Glucose 122 H Calcium 8.3 L Phosphorus 2.4 L Magnesium 1.9 Total Bilirubin 0.7 AST 24 ALT < 6 Alkaline Phosphatase 65 Total Protein 6.2 L Albumin 2.9 L Stool Occult Blood NEGATIVE Vancomycin Trough 14.4 Crossmatch See Detail Microbiology Microbiology Results: Microbiology 01/17/25 20:11 Blood - Venous Blood Culture - Preliminary No growth after 24 hours. 01/17/25 20:11 Blood - Venous Blood Culture - Preliminary No growth after 24 hours. 01/15/25 09:58 Blood - Venous Blood Culture - Preliminary Prelim: GPC Gram Stain only 01/15/25 10:01 Blood - Venous Blood Culture - Preliminary No growth after 48 hours. Progress Note: A&P Assessment and plan (1) Postoperative complication: Status: Acute (2) CAD (coronary artery disease): Status: Acute (3) Ileostomy in place: Status: Acute (4) Intra-abdominal abscess post-procedure: Status: Acute Plan Assessment: 64-year-old lady with recent subtotal colectomy/hernia repair at [facility] on 01/07/2025 admitted with postoperative abscess, evaluated by General surgery, now with conservative management with antibiotics/close monitoring Plan: Neuro: No acute issues. Cardiac: Septic shock, resolved, titrated off pressor support. Underlying history of CAD. Pulmonary: No acute issues. Renal: No acute issues. Endo: No acute issues. GI: Abdominal abscess, likely postprocedure complication. General surgery service care appreciated. No plans for operative management at this time. Continue empiric antibiotic/IV fluid support. Repeat CT abdomen on 01/17/2025 now with multiple abdominal collections. ID: Empiric broad-spectrum coverage for intra-abdominal process. Positive blood culture /2 is likely a contaminant. Repeat cultures are pending. Heme/Onc: Acute anemia, unclear if dilutional, now status post 1 unit of packed red blood cells with appropriate response. Continue to monitor hemoglobin. Psych: No acute issues. Miscellaneous: No acute issues. Prophylaxis: Heparin, ppi Diet: TPN Quality Stroke Does the patient have a stroke diagnosis?: No VTE Prior VTE?: No VTE Risk Level:: Medical - moderate - high VTE Device Contraindication: N/A - Device Ordered VTE Drug Contraindication: N/A - Med Ordered
--- NOTE | 2025-01-19 13:41 | PM.EVENT ---
Event Note Date of Service: 01/20/25 Event Note: Seen on afternoon rounds Just transferred to telemetry from ICU Says she feels well Denies severe abdominal pain Stoma functioning well Abdomen is soft and benign Still with some shortness of breath but with good O2 sats Otherwise appears comfortable Okay to have clear liquids Parental nutrition We will have hospitalist follow as well Time Spent With Patient Time: Total time managing care of this patient today ____ minutes.
--- NOTE | 2025-01-19 13:48 | PC.NURSE ---
Patient transferred to [facility] with tripple lumen in place, MD aware, unable to obtain peripheral line.
[2025-01-19] MEDS: vancomycin HCL 750 MG in 0.9 % Sodium Chloride 250 ML 256 MG IV (21:16)
[2025-01-19] MEDS: Mirtazapine 15 MG TABLET PO (21:16)
[2025-01-19] MEDS: Parenteral Nutrition 1,680 ML 70 ML IV (22:12)
[2025-01-20] VITALS (9 sets, daily range): BP systolic 105–128; BP diastolic 55–64; PULSE 92–107; RESP 16–20; TEMP 36.1–37.2; O2SAT 95–98
[2025-01-20] MEDS: HYDROmorphone HCl 2 MG/ML VIAL IVPUSH ×7 (02:23→22:43)
[2025-01-20] MEDS: Piperacillin Sodium/Tazobactam 3.375 GM in 0.9 % Sodium Chloride 50 ML IV ×4 (05:16→22:45)
[2025-01-20] MEDS: Pantoprazole Sodium 40 MG/10 ML VIAL IVPUSH ×2 (05:16→16:11)
[2025-01-20] MEDS: Heparin Sodium,Porcine 5,000 UNIT/ML VIAL 5000 UNIT SUBCUT ×3 (05:17→22:47)
[2025-01-20 06:39] LABS: Vancomycin Trough 19.5 mcg/mL (10.0-20.0)
[2025-01-20 06:49] LABS: Alanine Aminotransferase < 6 U/L (0-31); Albumin Level 2.6 g/dL (3.5-5.0); Alkaline Phosphatase 72 U/L (39-117); Anion Gap 10 (12-20); Aspartate Amino Transferase 25 U/L (5-31); Bilirubin Total 0.9 mg/dL (0.0-1.0); Blood Urea Nitrogen 22 mg/dL (9-16); Calcium 8.4 mg/dL (8.4-10.2); Carbon Dioxide 23 mmol/L (22-29); Chloride 107 mmol/L (96-108); Creatinine Clr Calc Pharmacy 82.7; Estimated Glomerular Filt Rate > 60; Glucose Random 122 mg/dL (60-115); Magnesium 1.7 mg/dL (1.6-2.6); Phosphorus 2.7 mg/dL (2.7-4.5); Potassium 4.6 mmol/L (3.3-5.1); Sodium 135 mmol/L (135-145); Total Protein 6.2 g/dL (6.5-8.0)
[2025-01-20 06:57] LABS: Hematocrit 26.2 % (37.0-47.0); Hemoglobin 8.2 g/dl (12.0-16.0); Mean Corpuscular HGB Conc 31.3 g/dl (31.0-35.0); Mean Corpuscular Hemoglobin 29.1 pg (27.0-33.0); Mean Corpuscular Volume 92.9 fL (80.0-98.0); Mean Platelet Volume 10.1 fL (9.4-12.3); NRBC Pct Auto 0.2 /100WBC (0.0-0.2); Platelet Count 178 X10*3/uL (160-400); Red Blood Count 2.82 X10*6/uL (4.20-5.50); Red Cell Distribution Width 14.6 % (11.0-16.0)
[2025-01-20 06:58] LABS: WBC ABN SCTR FOR CBC 1
--- NOTE | 2025-01-20 07:10 | HE.PHANOTE ---
RE: VANCO DOSING Trough came back as 19.5 mg/L when it was predicted to be 15.4 mg/L. Dose is decreased to 500 mg q12h, next trough is scheduled for 01/21/25 @0600.
--- NOTE | 2025-01-20 08:12 | PM.PNGS ---
Subjective Subjective Date of Service: 01/20/25 <Gabi Victoria PA-C - Last Filed: 01/20/25 08:18> 01/20/25 <Gideon Ruvalcaba MD - Last Filed: 01/20/25 11:00> Interval history: Remains short of breath at rest but significantly worsens with movement, getting OOB. Mild superficial abd pain. Denies nausea. <Gabi Victoria PA-C - Last Filed: 01/20/25 08:18> Physical Exam Vital Signs: Vital Signs: Last Vital Signs Temp 98.4 F 01/20/25 07:48 Pulse 94 01/20/25 07:48 Resp 20 01/20/25 07:48 BP 126/64 01/20/25 07:48 Pulse Ox 96 01/20/25 07:48 O2 Del Method Nasal Cannula 01/20/25 07:48 O2 Flow Rate 1 01/20/25 07:48 BMI result Body Mass Index 30.9 <Gabi Victoria PA-C - Last Filed: 01/20/25 08:18> Const: General: alert and tired appearing <Gabi Victoria PA-C - Last Filed: 01/20/25 08:18> Orientation/consciousness: patient oriented x3 <STAN Wilder Last Filed: 01/20/25 08:18> Resp: Other: increased work of breathing <Gabi Victoria PA-C - Last Filed: 01/20/25 08:18> Effort & Inspection: tachypneic <Gabi Victoria PA-C - Last Filed: 01/20/25 08:18> GI: Other: midline incision clean ostomy with bilious output <STAN Wilder Last Filed: 01/20/25 08:18> Palpation (GI): Soft to palpation, Tenderness to palpation present (GI) (mild at incision) and no guarding <STAN Wilder Last Filed: 01/20/25 08:18> Percussion: Yes normal to percussion <STAN Wilder Last Filed: 01/20/25 08:18> Skin: General skin exam: no rashes or lesions noted <Gabi Victoria PA-C - Last Filed: 01/20/25 08:18> Neuro: General: patient oriented x3 and moves all extremities <Gabi Victoria PA-C - Last Filed: 01/20/25 08:18> Objective Data Active Medications Heparin Sodium (Porcine) (Heparin Sodium,Porcine 5,000 Unit/Ml Vial) 5,000 unit SUBCUT Q8H [facility] Last Admin: 01/20/25 05:17 Dose: 5,000 unit Documented By: LORIE Hydromorphone HCl (Hydromorphone Hcl 2 Mg/Ml Vial) 2 mg IVPUSH Q2H PRN; Protocol PRN Reason: Pain, Severe (Pain Scale 7-10) Last Admin: 01/20/25 05:26 Dose: 2 mg Documented By: LORIE Piperacillin Sod/Tazobactam (Sod 3.375 gm/ Sodium Chloride) 50 mls @ 100 mls/hr IV Q6H [facility] Last Infusion: 01/20/25 05:50 Dose: Infused Documented By: LORIE Nutrition (Parenteral) (Parenteral Nutrition) 1,680 mls @ 70 mls/hr IV .Q24H [facility]; Protocol Stop: 01/20/25 20:59 Last Admin: 01/19/25 22:12 Dose: 70 mls/hr Documented By: LORIE Vancomycin HCl 500 mg/ Sodium (Chloride) 110 mls @ 110 mls/hr IV Q12H [facility] Mirtazapine (Mirtazapine 15 Mg Tablet) 15 mg PO BEDTIME [facility] Last Admin: 01/19/25 21:16 Dose: 15 mg Documented By: LORIE Ondansetron HCl (Ondansetron Hcl 4 Mg/2 Ml Vial) 4 mg IVPUSH Q4H PRN PRN Reason: Nausea and Vomiting Last Admin: 01/16/25 08:29 Dose: 4 mg Documented By: LUIS Pantoprazole Sodium (Pantoprazole Sodium 40 Mg/10 Ml Vial) 40 mg IVPUSH BID@0630,1630 [facility] Last Admin: 01/20/25 05:16 Dose: 40 mg Documented By: LORIE Pharmacy Consult (Consult Rx Vancomycin Dosing) 1 each MISCELLANE DAILY PRN PRN Reason: Consult order Pharmacy Consult (Consult Rx Parenteral Nutrition Ordering) 1 each MISCELLANE DAILY PRN PRN Reason: Consult order <Gabi Victoria PA-C - Last Filed: 01/20/25 08:18> Labs CBC & Chem 7: 01/20/25 06:07 01/20/25 06:07 <Gabi Victoria PA-C - Last Filed: 01/20/25 08:18> Labs: Laboratory Results - last 24 hr 01/20/25 06:07 MCV 92.9 MCH 29.1 MCHC 31.3 RDW 14.6 Plt Count 178 MPV 10.1 Immature Gran % (Auto) Cancelled Neut % (Auto) Cancelled Lymph % (Auto) Cancelled [place] % (Auto) Cancelled Eos % (Auto) Cancelled Baso % (Auto) Cancelled Lymph # (Auto) Cancelled [place] # (Auto) Cancelled Eos # (Auto) Cancelled Baso # (Auto) Cancelled Abs Immat Gran (auto) Cancelled Absolute Neuts (auto) Cancelled Absolute Nucleated RBC 0.030 H Nucleated RBC % (auto) 0.2 Anion Gap 10 L Estim Creat Clear Calc 82.7 Estimated GFR > 60 Random Glucose 122 H Calcium 8.4 Phosphorus 2.7 Magnesium 1.7 Total Bilirubin 0.9 AST 25 ALT < 6 Alkaline Phosphatase 72 Total Protein 6.2 L Albumin 2.6 L Vancomycin Trough 19.5 <Gabi Victoria PA-C - Last Filed: 01/20/25 08:18> Microbiology Microbiology Results: Microbiology 01/17/25 20:11 Blood Culture - Preliminary Blood - Venous No growth after 48 hours. 01/17/25 20:11 Blood Culture - Preliminary Blood - Venous No growth after 48 hours. 01/15/25 09:58 Blood Culture - Final Blood - Venous Finegoldia magna <Gabi Victoria PA-C - Last Filed: 01/20/25 08:18> Procedures Date of Service Date of Service: 01/20/25 <Gabi Victoria PA-C - Last Filed: 01/20/25 08:18> 01/20/25 <Gideon Ruvalcaba MD - Last Filed: 01/20/25 11:00> Progress Note: A&P Assessment and plan (1) Intra-abdominal abscess post-procedure: Status: Acute <Gabi Victoria PA-C - Last Filed: 01/20/25 08:18> Assessment and Plan: No events overnight WBC trending up Abdomen is soft Stoma functioning Hg steady still SOB dw Hospitalist IV abx <Gideon Ruvalcaba MD - Last Filed: 01/20/25 11:00> Assessment and Plan: Interloop abscesses noted after subtotal colectomy, ileostomy in [facility], nonoperative management being attempted, on IV abx. H/h drifted yesterday, received 1U PRBC with appropriate rise. H/H stable this morning. WBC was trending back up yesterday, AM WBC pending. VSS. Abdomen is soft and benign. Stoma functioning well Cont clear liquids for now, parenteral nutrition. Remains short of breath. Appreciate hospitalist input. Deconditined, PT consult, incentive spirometry encouraged. <Gabi Victoria PA-C - Last Filed: 01/20/25 08:18> Time Spent With Patient Time: Total time managing care of this patient today ____ minutes. <Gabi Victoria PA-C - Last Filed: 01/20/25 08:18> Quality Stroke Does the patient have a stroke diagnosis?: No <Gabi Victoria PA-C - Last Filed: 01/20/25 08:18> VTE Prior VTE?: No <Gabi Victoria PA-C - Last Filed: 01/20/25 08:18> VTE Risk Level:: Medical - moderate - high <Gabi Victoria PA-C - Last Filed: 01/20/25 08:18> VTE Device Contraindication: N/A - Device Ordered <Gabi Victoria PA-C - Last Filed: 01/20/25 08:18> VTE Drug Contraindication: N/A - Med Ordered <Gabi Victoria PA-C - Last Filed: 01/20/25 08:18>
[2025-01-20 08:41] LABS: Atypical Lymphs Percent Manual 2 % (0-6); Band Neutrophils Percent 8 % (3-5); Eosinophils Percent Manual 2 % (0-4); Lymphocytes Percent Manual 9 % (20-40); Metamyelocytes Percent 2 %; Monocytes Percent Manual 9 % (2-11); Neutrophils Percent Manual 67 % (45-73); Promyelocytes Percent 1 %
[2025-01-20 08:42] LABS: Platelet Estimate NORMAL (NORMAL); RBC Morphology NORMAL
[2025-01-20 08:43] LABS: Atypical Lymph Absolute Manual 0.3 x10*3/uL; Eosinophils Absolute Manual 0.3 X10*3/uL (0.0-0.4); Lymphocytes Absolute Manual 1.5 X10*3/uL (1.2-4.9); Metamyelocytes Absolute 0.3 X10*3/uL; Monocytes Absolute Manual 1.5 X10*3/uL (0.1-1.2); Neutrophils Absolute Manual 12.4 X10*3/uL (2.0-8.3); Platelet Morphology Comment NORMAL; Promyelocytes Absolute 0.2 X10*3/uL; White Blood Count 16.5 X10*3/uL (4.8-10.8)
[2025-01-20] MEDS: vancomycin HCL 500 MG in 0.9 % Sodium Chloride 100 ML 110 MG IV (08:44)
--- NOTE | 2025-01-20 10:39 | MHC.CLN ---
F/U REVIEWED LABS DISCUSSED WITH PHARMACY DIET ADVANCED TO C/L CONTINUE TPN AT MAX GOAL RATE OF 70ML/HR WITH 25G LIPIDS PROVIDES 1443 TOTAL KCALS (25KCALS/KG BASED ON CMW), 252G DEXTROSE, 84G PROTEIN (1.4G/KG) REPLETE LYTES NEEDED GOAL TO REDUCE TPN PO INTAKE IMPROVES
--- NOTE | 2025-01-20 15:12 | MHC.CM.PN ---
EMR reviewed and per MD rounds, pt is not medically cleared for discharge at this time, pt was downgraded from the ICU.
--- NOTE | 2025-01-20 15:58 | P.PNIM_ITS ---
Subjective Subjective Date of Service: 01/20/25 Physical Exam 2 Vital Signs: Vital Signs: Last Vital Signs Temp 98.4 F 01/20/25 12:00 Pulse 100 01/20/25 12:00 Resp 20 01/20/25 12:00 BP 128/60 01/20/25 12:00 Pulse Ox 95 01/20/25 12:00 O2 Del Method Nasal Cannula 01/20/25 12:00 O2 Flow Rate 3 01/20/25 12:00 BMI result Body Mass Index 30.9 Objective Data Active Medications Acetaminophen (Acetaminophen 325 Mg Tablet) 975 mg PO Q6H PRN PRN Reason: Pain, Mild 1-3,fever,headache Furosemide (Furosemide 40 Mg/4 Ml Vial) 40 mg IVPUSH DAILY [facility]; Protocol Heparin Sodium (Porcine) (Heparin Sodium,Porcine 5,000 Unit/Ml Vial) 5,000 unit SUBCUT Q8H [facility] Last Admin: 01/20/25 13:52 Dose: 5,000 unit Documented By: JESSE Hydromorphone HCl (Hydromorphone Hcl 2 Mg/Ml Vial) 2 mg IVPUSH Q2H PRN; Protocol PRN Reason: Pain, Severe (Pain Scale 7-10) Last Admin: 01/20/25 13:59 Dose: 2 mg Documented By: JESSE Piperacillin Sod/Tazobactam (Sod 3.375 gm/ Sodium Chloride) 50 mls @ 100 mls/hr IV Q6H [facility] Last Infusion: 01/20/25 11:00 Dose: Infused Documented By: JESSE Nutrition (Parenteral) (Parenteral Nutrition) 1,680 mls @ 70 mls/hr IV .Q24H [facility]; Protocol Stop: 01/20/25 20:59 Last Admin: 01/19/25 22:12 Dose: 70 mls/hr Documented By: LORIE Nutrition (Parenteral) (Parenteral Nutrition) 1,680 mls @ 70 mls/hr IV .Q24H [facility]; Protocol Stop: 01/21/25 20:59 Metronidazole (Flagyl) 500 mg in 100 mls @ 100 mls/hr IV Q8H [facility] Mirtazapine (Mirtazapine 15 Mg Tablet) 15 mg PO BEDTIME [facility] Last Admin: 01/19/25 21:16 Dose: 15 mg Documented By: LORIE Ondansetron HCl (Ondansetron Hcl 4 Mg/2 Ml Vial) 4 mg IVPUSH Q4H PRN PRN Reason: Nausea and Vomiting Last Admin: 01/16/25 08:29 Dose: 4 mg Documented By: LUIS Pantoprazole Sodium (Pantoprazole Sodium 40 Mg/10 Ml Vial) 40 mg IVPUSH BID@0630,1630 [facility] Last Admin: 01/20/25 05:16 Dose: 40 mg Documented By: LORIE Pharmacy Consult (Consult Rx Parenteral Nutrition Ordering) 1 each MISCELLANE DAILY PRN PRN Reason: Consult order Labs 01/20/25 06:07 01/20/25 06:07 Labs: Laboratory Results - last 24 hr 01/20/25 06:07 MCV 92.9 MCH 29.1 MCHC 31.3 RDW 14.6 Plt Count 178 MPV 10.1 Immature Gran % (Auto) Cancelled Neut % (Auto) Cancelled Lymph % (Auto) Cancelled [place] % (Auto) Cancelled Eos % (Auto) Cancelled Baso % (Auto) Cancelled Lymph # (Auto) Cancelled [place] # (Auto) Cancelled Eos # (Auto) Cancelled Baso # (Auto) Cancelled Abs Immat Gran (auto) Cancelled Absolute Neuts (auto) Cancelled Absolute Nucleated RBC 0.030 H Nucleated RBC % (auto) 0.2 Neutrophils % (Manual) 67 Band Neutrophils % 8 H Lymphocytes % (Manual) 9 L Atypical Lymphs % (Man) 2 Monocytes % (Manual) 9 Eosinophils % (Manual) 2 Metamyelocytes % 2 Promyelocytes % 1 Abs Neuts (Manual) 12.4 H Lymphocytes # (Manual) 1.5 Atyp Lymphs # (Manual) 0.3 Monocytes # (Manual) 1.5 H Eosinophils # (Manual) 0.3 Metamyelocytes # 0.3 Promyelocytes # 0.2 Platelet Estimate NORMAL Plt Morphology Comment NORMAL RBC Morphology NORMAL Anion Gap 10 L Estim Creat Clear Calc 82.7 Estimated GFR > 60 Random Glucose 122 H Calcium 8.4 Phosphorus 2.7 Magnesium 1.7 Total Bilirubin 0.9 AST 25 ALT < 6 Alkaline Phosphatase 72 Total Protein 6.2 L Albumin 2.6 L Vancomycin Trough 19.5 Microbiology Microbiology Results: Microbiology 01/15/25 10:01 Blood Culture - Final Blood - Venous No growth after 5 days. 05/16/25 20:11 Blood Culture - Preliminary Blood - Venous No growth after 48 hours. 01/17/25 20:11 Blood Culture - Preliminary Blood - Venous No growth after 48 hours. 01/15/25 09:58 Blood Culture - Final Blood - Venous Finegoldia magna Assessment and Plan (1) Intra-abdominal abscess post-procedure: Status: Acute (2) Postoperative complication: Status: Acute (3) Bacteremia: Status: Acute (4) Pulmonary edema: Status: Acute Plan 64-year-old lady with underlying history of diastolic dysfunction, CAD, IBS, recent subtotal colect[place] [facility] [place] with ileostomy presented w 2 day history of worsening abdominal pain and hypotensive with poor response to initial IV fluid resuscitation requiring pressor support. On CT imaging patient with likely abdominal abscess with gas collection. Patient refused transfer to [facility]. evaluated by surgical team with current plans for non operative management with antibiotics and close monitoring. Follow-up CT chest on 01/17/2025 with multiple intra-abdominal collections. blood cultures growing Fineglodia Magna. Intra abdominal Abscess with Fineglogia Magna Bactremia and worsening Leukocytosis Surgery team following ; non operative approach now Covered with Zosyn , to add Flagyl DC Vancomycin after discussing with ID Repeat CT as needed Stoma functioning, tolerating clears on PPN Acute on chronic anemia Improved after PRBCs transfusion monitor H&H no bleeding reported Pulmonary edema and effusion 2/2 acute on chronic diastolic CHF exacerbation From fluid resuscitation Start IV Lasix I\O wean O2 down as tolerated Incentive Hx CAD Carvedilol, Losartan as BP tolerate Hold HCT for now DVT PPx Heparin SC Thank you for the consult will continue to follow the patient with you Quality Stroke Does the patient have a stroke diagnosis?: No VTE Prior VTE?: No VTE Risk Level:: Medical - moderate - high VTE Device Contraindication: N/A - Device Ordered VTE Drug Contraindication: N/A - Med Ordered
[2025-01-20] MEDS: Furosemide 40 MG/4 ML VIAL IVPUSH (16:11)
[2025-01-20] MEDS: metroNIDAZOLE/NS 500 MG/100 ML PIGGYBACK 100 MG IV ×2 (16:16→23:40)
[2025-01-20] MEDS: Parenteral Nutrition 1,680 ML 70 ML IV (20:27)
[2025-01-20] MEDS: Mirtazapine 15 MG TABLET PO (20:28)
[2025-01-21] VITALS (7 sets, daily range): BP systolic 107–131; BP diastolic 60–70; PULSE 89–156; RESP 16–19; TEMP 36.1–37.1; O2SAT 93–97
--- NOTE | 2025-01-21 | ECG_ITS ---
Test Reason : ?afib Blood Pressure : */* mmHG Vent. Rate : 154 BPM Atrial Rate : 326 BPM P-R Int : * ms QRS Dur : 76 ms QT Int : 248 ms P-R-T Axes : * 69 172 degrees QTcB Int : 397 ms Atrial flutter with variable A-V block ST & T wave abnormality, consider anterolateral ischemia Abnormal ECG When compared with ECG of 09-Apr-2024 07:27, Atrial flutter has replaced Sinus rhythm Vent. rate has increased by 63 bpm Nonspecific T wave abnormality now evident in Inferior leads T wave inversion now evident in Anterolateral leads Referred By: Noa Garcias Electronically Signed By: Russell Hummel
[2025-01-21] MEDS: Pantoprazole Sodium 40 MG/10 ML VIAL IVPUSH ×2 (05:32→16:29)
[2025-01-21] MEDS: Piperacillin Sodium/Tazobactam 3.375 GM in 0.9 % Sodium Chloride 50 ML IV ×4 (05:33→22:31)
[2025-01-21] MEDS: HYDROmorphone HCl 2 MG/ML VIAL IVPUSH ×7 (05:37→23:48)
[2025-01-21] MEDS: Heparin Sodium,Porcine 5,000 UNIT/ML VIAL 5000 UNIT SUBCUT ×3 (05:37→22:32)
--- NOTE | 2025-01-21 06:47 | PC.NURSE ---
Pt c/o increased urination overnight due to Lasix given on previous shift. Patient very SOB getting up to bsc. Attempted purewick. Patient unable to tolerate purewick. Patient requesting a perez. Patient educated on risks of perez catheter. Still requesting perez despite education. MD Garcias notified. Order placed. Perez inserted by surgeon assistant.
[2025-01-21 06:57] LABS: Anion Gap 10 (12-20); Blood Urea Nitrogen 24 mg/dL (9-16); Calcium 8.6 mg/dL (8.4-10.2); Carbon Dioxide 27 mmol/L (22-29); Chloride 101 mmol/L (96-108); Creatinine Clr Calc Pharmacy 80.2; Estimated Glomerular Filt Rate > 60; Glucose Random 120 mg/dL (60-115); Sodium 134 mmol/L (135-145)
[2025-01-21 07:01] LABS: Vancomycin Random 10.8 mcg/mL (15-20)
[2025-01-21 07:06] LABS: Alanine Aminotransferase < 6 U/L (0-31); Albumin Level 2.6 g/dL (3.5-5.0); Alkaline Phosphatase 79 U/L (39-117); Anion Gap 11 (12-20); Aspartate Amino Transferase 24 U/L (5-31); Bilirubin Total 1.1 mg/dL (0.0-1.0); Blood Urea Nitrogen 24 mg/dL (9-16); Calcium 8.5 mg/dL (8.4-10.2); Carbon Dioxide 27 mmol/L (22-29); Chloride 101 mmol/L (96-108); Creatinine Clr Calc Pharmacy 81.4; Estimated Glomerular Filt Rate > 60; Glucose Random 119 mg/dL (60-115); Magnesium 1.6 mg/dL (1.6-2.6); Phosphorus 3.3 mg/dL (2.7-4.5); Sodium 135 mmol/L (135-145); Total Protein 6.6 g/dL (6.5-8.0)
[2025-01-21 07:09] LABS: B Type Natriuretic Peptide 758 pg/mL (<100)
[2025-01-21] MEDS: metroNIDAZOLE/NS 500 MG/100 ML PIGGYBACK 100 MG IV ×3 (07:37→23:42)
[2025-01-21] MEDS: Furosemide 40 MG/4 ML VIAL IVPUSH (07:37)
--- NOTE | 2025-01-21 09:28 | PM.PNGS ---
Subjective Subjective Date of Service: 01/21/25 <Gabi Victoria PA-C - Last Filed: 01/21/25 09:35> 01/21/25 <Gideon Ruvalcaba MD - Last Filed: 01/21/25 10:23> Interval history: Erwin inserted yesterday, could not tolerated pure wick and was having difficulty getting OOB repeatedly to commode. Shortness of breath has somewhat improved. C/o incisional abd pain with deep breathing. C/o anxiety. <Gabi Victoria PA-C - Last Filed: 01/21/25 09:35> Physical Exam Vital Signs: Vital Signs: Last Vital Signs Temp 96.9 F 01/21/25 07:24 Pulse 93 01/21/25 07:24 Resp 18 01/21/25 07:24 BP 107/61 01/21/25 07:24 Pulse Ox 97 01/21/25 07:24 O2 Del Method Nasal Cannula 01/21/25 07:24 O2 Flow Rate 3 01/21/25 07:24 BMI result Body Mass Index 30.9 <Gabi Victoria PA-C - Last Filed: 01/21/25 09:35> Const: General: comfortable, no acute distress and alert <STAN Wilder Last Filed: 01/21/25 09:35> Orientation/consciousness: patient oriented x3 <STAN Wilder Last Filed: 01/21/25 09:35> Resp: Other: some increased work of breathing, able to speak in longer sentences <Gabi Victoria PA-C - Last Filed: 01/21/25 09:35> Effort & Inspection: tachypneic and no use of accessory muscles <STAN Wilder Last Filed: 01/21/25 09:35> GI: Other: incision clean ostomy with bilious output <STAN Wilder Last Filed: 01/21/25 09:35> Inspection: No distended <STAN Wilder Last Filed: 01/21/25 09:35> Palpation (GI): Tenderness to palpation present (GI) (mild incisional and lower ) and no guarding <Gabi Victoria PA-C - Last Filed: 01/21/25 09:35> Skin: General skin exam: no rashes or lesions noted <Gabi Victoria PA-C - Last Filed: 01/21/25 09:35> Neuro: General: patient oriented x3 and moves all extremities <Gabi Victoria PA-C - Last Filed: 01/21/25 09:35> Objective Data Active Medications Acetaminophen (Acetaminophen 325 Mg Tablet) 975 mg PO Q6H PRN PRN Reason: Pain, Mild 1-3,fever,headache Furosemide (Furosemide 40 Mg/4 Ml Vial) 40 mg IVPUSH DAILY [facility]; Protocol Last Admin: 01/21/25 07:37 Dose: 40 mg Documented By: JESSE Heparin Sodium (Porcine) (Heparin Sodium,Porcine 5,000 Unit/Ml Vial) 5,000 unit SUBCUT Q8H [facility] Last Admin: 01/21/25 05:37 Dose: 5,000 unit Documented By: DAWIT Hydromorphone HCl (Hydromorphone Hcl 2 Mg/Ml Vial) 2 mg IVPUSH Q2H PRN; Protocol PRN Reason: Pain, Severe (Pain Scale 7-10) Last Admin: 01/21/25 07:47 Dose: 2 mg Documented By: JESSE Piperacillin Sod/Tazobactam (Sod 3.375 gm/ Sodium Chloride) 50 mls @ 100 mls/hr IV Q6H [facility] Last Infusion: 01/21/25 06:12 Dose: Infused Documented By: DAWIT Nutrition (Parenteral) (Parenteral Nutrition) 1,680 mls @ 70 mls/hr IV .Q24H [facility]; Protocol Stop: 01/21/25 20:59 Last Admin: 01/20/25 20:27 Dose: 70 mls/hr Documented By: DAWIT Metronidazole (Flagyl) 500 mg in 100 mls @ 100 mls/hr IV Q8H [facility] Last Admin: 01/21/25 07:37 Dose: 100 mls/hr Documented By: JESSE Nutrition (Parenteral) (Parenteral Nutrition) 1,680 mls @ 70 mls/hr IV .Q24H [facility]; Protocol Stop: 01/22/25 20:59 Mirtazapine (Mirtazapine 15 Mg Tablet) 15 mg PO BEDTIME [facility] Last Admin: 01/20/25 20:28 Dose: 15 mg Documented By: DAWIT Ondansetron HCl (Ondansetron Hcl 4 Mg/2 Ml Vial) 4 mg IVPUSH Q4H PRN PRN Reason: Nausea and Vomiting Last Admin: 01/16/25 08:29 Dose: 4 mg Documented By: LUIS Pantoprazole Sodium (Pantoprazole Sodium 40 Mg/10 Ml Vial) 40 mg IVPUSH BID@0630,1630 [facility] Last Admin: 01/21/25 05:32 Dose: 40 mg Documented By: DAWIT Pharmacy Consult (Consult Rx Parenteral Nutrition Ordering) 1 each MISCELLANE DAILY PRN PRN Reason: Consult order <Gabi Victoria PA-C - Last Filed: 01/21/25 09:35> Labs CBC & Chem 7: 01/20/25 06:07 01/21/25 06:00 <Gabi Victoria PA-C - Last Filed: 01/21/25 09:35> Labs: Laboratory Results - last 24 hr 01/21/25 01/21/25 01/21/25 06:00 06:00 06:00 Anion Gap 11 L 10 L Estim Creat Clear Calc 81.4 80.2 Estimated GFR > 60 Random Glucose Calcium Phosphorus Magnesium Total Bilirubin AST ALT Alkaline Phosphatase B-Natriuretic Peptide Total Protein Albumin Random Vancomycin 01/21/25 01/21/25 01/21/25 06:00 06:00 06:00 Anion Gap Estim Creat Clear Calc Estimated GFR > 60 Random Glucose 119 H 120 H Calcium 8.5 8.6 Phosphorus 3.3 Magnesium 1.6 Total Bilirubin 1.1 H AST 24 ALT < 6 Alkaline Phosphatase 79 B-Natriuretic Peptide 758 H Total Protein 6.6 Albumin 2.6 L Random Vancomycin 10.8 L <Gabi Victoria PA-C - Last Filed: 01/21/25 09:35> Microbiology Microbiology Results: Microbiology 01/15/25 10:01 Blood Culture - Final Blood - Venous No growth after 5 days. <Gabi Victoria PA-C - Last Filed: 01/21/25 09:35> Procedures Date of Service Date of Service: 01/21/25 <Gabi Victoria PA-C - Last Filed: 01/21/25 09:35> 01/21/25 <Gideon Ruvalcaba MD - Last Filed: 01/21/25 10:23> Progress Note: A&P Assessment and plan (1) Pulmonary edema: Status: Acute <Gabi Victoria PA-C - Last Filed: 01/21/25 09:35> Assessment and Plan: States she had severe pain due to urinary retention last night Improved with Erwin catheter Currently feels well Tolerating diet Stoma with good function No fever Still with some shortness of breath but seems better Abdomen is soft and benign Continue treatment for interloop abscesses She wants to try full liquids Seen and examined independently <Gideon Ruvalcaba MD - Last Filed: 01/21/25 10:23> (2) Intra-abdominal abscess post-procedure: Status: Acute <Gabi Victoria PA-C - Last Filed: 01/21/25 09:35> Assessment and Plan: Interloop abscesses noted after subtotal colectomy, ileostomy in [facility], nonoperative management being attempted, on IV zosyn. Vanco dc yesterday and flagyl initiated. Hospitalists following. CXR yesterday for worsening dyspnea showed pulmonary edema and bilateral pleural effusions- on IV lasix. Breathing somewhat improved this morning. WBC was trending back up yesterday. Repeat CBC in am. VSS. Abdomen is soft and benign. Stoma functioning well. Cont clear liquids for now, parenteral nutrition. Deconditioned, PT consult, incentive spirometry encouraged. PRN valium for anxiety. <Gabi Victoria PA-C - Last Filed: 01/21/25 09:35> Time Spent With Patient Time: Total time managing care of this patient today ____ minutes. <Gabi Victoria PA-C - Last Filed: 01/21/25 09:35> Quality Stroke Does the patient have a stroke diagnosis?: No <STAN Wilder Last Filed: 01/21/25 09:35> VTE Prior VTE?: No <STAN Wilder Last Filed: 01/21/25 09:35> VTE Risk Level:: Medical - moderate - high <Gabi Victoria PA-C - Last Filed: 01/21/25 09:35> VTE Device Contraindication: N/A - Device Ordered <Gabi Victoria PA-C - Last Filed: 01/21/25 09:35> VTE Drug Contraindication: N/A - Med Ordered <Gabi Victoria PA-C - Last Filed: 01/21/25 09:35>
--- NOTE | 2025-01-21 10:04 | MHC.CLN ---
F/U REVIEWED LABS DISCUSSED WITH PHARMACY DIET RX: C/L CONTINUE TPN AT MAX GOAL RATE OF 70ML/HR WITH 25G LIPIDS PROVIDES 1443 TOTAL KCALS (25KCALS/KG BASED ON CMW), 252G DEXTROSE, 84G PROTEIN (1.4G/KG) REPLETE LYTES NEEDED
--- NOTE | 2025-01-21 15:01 | PM.EVENT ---
Event Note Date of Service: 01/21/25 Event Note: Seen on afternoon rounds Had large amounts of purulent drainage from the lower part of the incision earlier This is likely from the abdominal abscess draining through the abdominal wall Currently dressings are dry Continue antibiotics Abdomen is soft Stoma continues to function well Good urine output No fever appreciate hospitalist follow-up Time Spent With Patient Time: Total time managing care of this patient today ____ minutes.
--- NOTE | 2025-01-21 15:19 | P.PNIM_ITS ---
Subjective Subjective Date of Service: 01/21/25 Interval History: seen and evaluated still reporting shortness of breath Erwin placed for fluid management overnight no other events Review of Systems Review of Systems: Yes all other systems are reviewed and are negative Physical Exam 2 Vital Signs: Vital Signs: Last Vital Signs Temp 97.7 F 01/21/25 11:03 Pulse 100 01/21/25 11:03 Resp 19 01/21/25 11:03 BP 131/70 01/21/25 11:03 Pulse Ox 95 01/21/25 11:03 O2 Del Method Nasal Cannula 01/21/25 11:03 O2 Flow Rate 3 01/21/25 11:03 BMI result Body Mass Index 30.9 Const: Other: Constitutional : Awake, interactive, not in distress Neck : Normal inspection, Supple Cardiovascular : RRR, no JVP, no lower extremity edema Respiratory : failr bilateral air entry but decreased at basis with bilateral crackles, on O2 Gastrointestinal: soft, lax, Normal bowel sounds, Non tender, surgical wounds stable Skin : Warm, Dry Neurological : Alert & oriented x3, No focal deficit Objective Data Active Medications Acetaminophen (Acetaminophen 325 Mg Tablet) 975 mg PO Q6H PRN PRN Reason: Pain, Mild 1-3,fever,headache Diazepam (Diazepam 10 Mg/2 Ml Cartridge) 5 mg IVPUSH Q6H PRN PRN Reason: Anxiety Furosemide (Furosemide 40 Mg/4 Ml Vial) 40 mg IVPUSH DAILY [facility]; Protocol Last Admin: 01/21/25 07:37 Dose: 40 mg Documented By: JESSE Heparin Sodium (Porcine) (Heparin Sodium,Porcine 5,000 Unit/Ml Vial) 5,000 unit SUBCUT Q8H [facility] Last Admin: 01/21/25 13:23 Dose: 5,000 unit Documented By: JESSE Hydromorphone HCl (Hydromorphone Hcl 2 Mg/Ml Vial) 2 mg IVPUSH Q2H PRN; Protocol PRN Reason: Pain, Severe (Pain Scale 7-10) Last Admin: 01/21/25 13:23 Dose: 2 mg Documented By: JESSE Piperacillin Sod/Tazobactam (Sod 3.375 gm/ Sodium Chloride) 50 mls @ 100 mls/hr IV Q6H [facility] Last Infusion: 01/21/25 11:03 Dose: Infused Documented By: JESSE Nutrition (Parenteral) (Parenteral Nutrition) 1,680 mls @ 70 mls/hr IV .Q24H [facility]; Protocol Stop: 01/21/25 20:59 Last Admin: 01/20/25 20:27 Dose: 70 mls/hr Documented By: DAWIT Metronidazole (Flagyl) 500 mg in 100 mls @ 100 mls/hr IV Q8H [facility] Last Infusion: 01/21/25 08:40 Dose: Infused Documented By: JESSE Nutrition (Parenteral) (Parenteral Nutrition) 1,680 mls @ 70 mls/hr IV .Q24H [facility]; Protocol Stop: 01/22/25 20:59 Mirtazapine (Mirtazapine 15 Mg Tablet) 15 mg PO BEDTIME [facility] Last Admin: 01/20/25 20:28 Dose: 15 mg Documented By: DAWIT Ondansetron HCl (Ondansetron Hcl 4 Mg/2 Ml Vial) 4 mg IVPUSH Q4H PRN PRN Reason: Nausea and Vomiting Last Admin: 01/16/25 08:29 Dose: 4 mg Documented By: LUIS Pantoprazole Sodium (Pantoprazole Sodium 40 Mg/10 Ml Vial) 40 mg IVPUSH BID@0630,1630 [facility] Last Admin: 01/21/25 05:32 Dose: 40 mg Documented By: DAWIT Pharmacy Consult (Consult Rx Parenteral Nutrition Ordering) 1 each MISCELLANE DAILY PRN PRN Reason: Consult order Labs 01/20/25 06:07 01/21/25 06:00 Labs: Laboratory Results - last 24 hr 01/21/25 01/21/25 01/21/25 06:00 06:00 06:00 Anion Gap 11 L 10 L Estim Creat Clear Calc 81.4 80.2 Estimated GFR > 60 Random Glucose Calcium Phosphorus Magnesium Total Bilirubin AST ALT Alkaline Phosphatase B-Natriuretic Peptide Total Protein Albumin Random Vancomycin 01/21/25 01/21/25 01/21/25 06:00 06:00 06:00 Anion Gap Estim Creat Clear Calc Estimated GFR > 60 Random Glucose 119 H 120 H Calcium 8.5 8.6 Phosphorus 3.3 Magnesium 1.6 Total Bilirubin 1.1 H AST 24 ALT < 6 Alkaline Phosphatase 79 B-Natriuretic Peptide 758 H Total Protein 6.6 Albumin 2.6 L Random Vancomycin 10.8 L Microbiology Microbiology Results: Microbiology 01/21/25 12:33 Gram Stain - Final Incision 01/15/25 10:01 Blood Culture - Final Blood - Venous No growth after 5 days. Assessment and Plan (1) Pulmonary edema: Status: Acute (2) Bacteremia: Status: Acute (3) Intra-abdominal abscess post-procedure: Status: Acute Plan 64-year-old lady with underlying history of diastolic dysfunction, CAD, IBS, recent [place] [facility] [place] with ileostomy presented w 2 day history of worsening abdominal pain and hypotensive with poor response to initial IV fluid resuscitation requiring pressor support. On CT imaging patient with likely abdominal abscess with gas collection. Patient refused transfer [place] [facility] [place] evaluated by surgical team with current plans for non operative management with antibiotics and close monitoring. Follow-up CT chest on 01/17/2025 with multiple intra-abdominal collections. blood cultures growing Fineglodia Magna. Pulmonary edema and effusion 2/2 acute on chronic diastolic CHF exacerbation From fluid resuscitation Continue IV Lasix I\O wean O2 down as tolerated Erwin placed, to dc once more active PT eval Intra abdominal Abscesses with Fineglogia Magna Bactremia and worsening Leukocytosis Surgery team following ; non operative approach now Covered with Zosyn , to add Flagyl Repeat CT as needed Stoma functioning, tolerating clears on PPN Acute on chronic anemia Improved after PRBCs transfusion monitor H&H no bleeding reported Incentive Hx CAD Carvedilol, Losartan as BP tolerate Hold HCT for now DVT PPx Heparin SC Thank you for the consult will continue to follow the patient with you Quality Stroke Does the patient have a stroke diagnosis?: No VTE Prior VTE?: No VTE Risk Level:: Medical - moderate - high VTE Device Contraindication: N/A - Device Ordered VTE Drug Contraindication: N/A - Med Ordered
--- NOTE | 2025-01-21 19:33 | PM.EVENT ---
Event Note Date of Service: 01/21/25 Event Note: Nurse reported tachycardia. Patient's heart rate sustaining in the 150s to 160s. EKG with AFib with RVR ?new onset. Blood pressure soft with 100 systolic. Initiating IV amiodarone. Obtaining TSH and echo. Chads Vasc score 4. Consulted Cardiology, appreciate assistance Time Spent With Patient Time: Total time managing care of this patient today ____ minutes.
[2025-01-21] MEDS: Metoprolol Tartrate 5 MG/5 ML VIAL 2.5 MG IVPUSH (19:41)
[2025-01-21] MEDS: Mirtazapine 15 MG TABLET PO (19:41)
[2025-01-21] MEDS: Parenteral Nutrition 1,680 ML 70 ML IV (20:34)
[2025-01-21] MEDS: Amiodarone/Dextrose 150 MG/100 ML PLAST..BAG 600 MG IV (20:47)
[2025-01-21] MEDS: Amiodarone HCL 900 MG in 0.9 % Sodium Chloride 500 ML 34.53 MG IVCONT (21:07)
[2025-01-22] VITALS (7 sets, daily range): BP systolic 109–159; BP diastolic 54–73; PULSE 81–126; RESP 16–18; TEMP 36.2–36.6; O2SAT 91–103
[2025-01-22] MEDS: HYDROmorphone HCl 2 MG/ML VIAL IVPUSH ×8 (02:10→22:52)
[2025-01-22] MEDS: Piperacillin Sodium/Tazobactam 3.375 GM in 0.9 % Sodium Chloride 50 ML IV ×4 (04:03→22:59)
[2025-01-22] MEDS: Heparin Sodium,Porcine 5,000 UNIT/ML VIAL 5000 UNIT SUBCUT ×3 (06:10→22:52)
[2025-01-22] MEDS: Pantoprazole Sodium 40 MG/10 ML VIAL IVPUSH ×2 (06:10→15:08)
--- NOTE | 2025-01-22 07:00 | CA_ITS ---
Transthoracic Echocardiogram Patient (Last, First, Middle): Kia Phelps, Gender: Female Date of : 1960 Age: 64 Procedure Date: 01/22/2025 Procedure Type: [place]ansthoracic [place] [facility] [place]: 157.48 cm Weight: 76.66 kg BSA: 1.78 m2 Heart Rate: bpm BP: 109 / 54 mmHg Nurse: Referring MD: Noa Garcias MD Symptoms: afib Study Quality: Adequate Conclusions: - Normal left ventricular size and systolic function. There is mildly increased left ventricular wall thickness. The visually estimated ejection fraction is between 60-65%. - E/E prime ratio is between 8 and 15 consistent with indeterminate filling pressures. - Normal right ventricular cavity size and systolic function. - There is a moderate pericardial effusion. There are no definitive echocardiographic findings of tamponade physiology. Findings Left Ventricle Normal left ventricular size and systolic function. There is mildly increased left ventricular wall thickness. The visually estimated ejection fraction is between 60-65%. There is no evidence of regional wall motion abnormalities. Abnormal diastolic function is noted. Spectral Doppler is indicative of a pseudonormal filling pattern. E/E prime ratio is between 8 and 15 consistent with indeterminate filling pressures. Right Ventricle Normal right ventricular cavity size and systolic function. Atria The left atrium is mildly dilated. The right atrium was not well visualized. Aortic Valve Normal aortic valve structure and function. There is no aortic valve stenosis. There is no aortic valve regurgitation. Mitral Valve Normal mitral valve structure and function. There is no mitral valve regurgitation. There is no mitral valve stenosis. Pulmonic Valve The pulmonic valve is likely normal. Tricuspid Valve Normal tricuspid valve structure. There is mild tricuspid valve regurgitation. Tricuspid regurgitation envelope is inadequate for calculation of right ventricular systolic pressure. Normal right atrial pressure. Great Vessels The visualized portions of the pulmonary artery and branches are normal. Ascending aorta is at upper limit of normal 3.5 cm. Venous The inferior vena cava is normal in size and collapses greater than 50% with inspiration. Pericardium/Pleural There is a moderate pericardial effusion. There are no definitive echocardiographic findings of tamponade physiology. Measurements 2D Linear Measurements IVSd: 0.96 0.6-0.9/0.6-1.0 cm LVIDd: 4.72 3.9-5.3/4.2-5.9 cm LVIDd Index: 2.65 2.4-3.2/2.2-3.1 cm/m2 LVIDs: 2.97 2.0-3.6 cm LVPWd: 0.96 0.7-1.1 cm LA Diam: 3.70 2.7-3.8/3.0-4.0 cm LAIDs Index: 2.08 1.5-2.3 cm/m2 LV Mass: 196.21 67-162/88-224 g LV Mass Index: 110.23 43-95/49-115 g/m2 LVOT Diam: 2.00 3.0+(-)1.3 cm Mitral Valve MV Pk E: 0.98 MV PK A: 0.95 MV Decel Time: 204.00 E/A: 1.00 E'Lateral: 8.38 E'Medial: 8.27 E/E' Med: 11.80 E/E' Lat: 11.70 PHT: 60.00 MVA PHT: 3.67 Decel [place]: 4.78 Aortic Valve AoV Pk Lan: 1.58 AoV Mn Lan: 0.96 AoV VTI: 0.28 AoV Pk Grad: 10.00 Aov Mn Grad: 5.00 MIGUELANGEL Cont.VTI: 2.49 LVOT LVOT Pk Lan: 1.14 LVOT Mn Lan: 0.78 LVOT VTI: 0.22 LVOT Pk Grad: 5.00 LVOT Mn Grad: 3.00 LVOT Diam: 2.00 LVOT Area: 3.14 Diastolic Function MV Pk E: 0.98 MV Pk A: 0.95 E/A: 1.00 E'Medial: 8.27 E/E' Med: 11.80 E' Laterial: 8.38 E/E' Lat: 11.70 Right Ventricle TAPSE (mm): 18.30 TVS' Lan: 14.50 Tricuspid Valve TR Pk Lan: 2.57 TR Pk Grad: 26.00 Great Vessels Aorta Sinus of Valsalva: 3.20 2.0-3.5 cm Ao Asc: 3.50 2.1-3.4 cm Pulmonary Valve PV Pk Lan: 1.18 Peak PV Grad: 6.00 Updated in Other Vendor System with Status of Final Russell Hummel MD electronically signed on 01/23/2025 2:20:34 PM with status of Final
[2025-01-22 07:09] LABS: Alanine Aminotransferase < 6 U/L (0-31); Albumin Level 2.5 g/dL (3.5-5.0); Alkaline Phosphatase 80 U/L (39-117); Anion Gap 12 (12-20); Aspartate Amino Transferase 30 U/L (5-31); Blood Urea Nitrogen 28 mg/dL (9-16); Calcium 8.1 mg/dL (8.4-10.2); Carbon Dioxide 28 mmol/L (22-29); Chloride 101 mmol/L (96-108); Creatinine Clr Calc Pharmacy 77.9; Estimated Glomerular Filt Rate > 60; Glucose Random 109 mg/dL (60-115); Magnesium 1.8 mg/dL (1.6-2.6); Phosphorus 3.4 mg/dL (2.7-4.5); Potassium 4.1 mmol/L (3.3-5.1); Sodium 137 mmol/L (135-145)
[2025-01-22 07:14] LABS: Anion Gap 10 (12-20); Blood Urea Nitrogen 28 mg/dL (9-16); Calcium 8.1 mg/dL (8.4-10.2); Carbon Dioxide 27 mmol/L (22-29); Chloride 102 mmol/L (96-108); Creatinine Clr Calc Pharmacy 79.1; Estimated Glomerular Filt Rate > 60; Glucose Random 112 mg/dL (60-115); Potassium 4.1 mmol/L (3.3-5.1); Sodium 135 mmol/L (135-145)
[2025-01-22 07:30] LABS: Thyroid Stimulating Hormone 2.58 uIU/mL (0.32-4.0)
[2025-01-22 07:36] LABS: Hemoglobin 8.5 g/dl (12.0-16.0); Mean Corpuscular HGB Conc 31.5 g/dl (31.0-35.0); Mean Corpuscular Hemoglobin 28.7 pg (27.0-33.0); Mean Corpuscular Volume 91.2 fL (80.0-98.0); Mean Platelet Volume 11.5 fL (9.4-12.3); NRBC Pct Auto 0.1 /100WBC (0.0-0.2); Platelet Count 172 X10*3/uL (160-400); Red Blood Count 2.96 X10*6/uL (4.20-5.50); Red Cell Distribution Width 14.7 % (11.0-16.0)
[2025-01-22 07:49] LABS: WBC ABN SCTR FOR CBC 1
[2025-01-22] MEDS: metroNIDAZOLE/NS 500 MG/100 ML PIGGYBACK 100 MG IV ×2 (07:50→15:54)
[2025-01-22] MEDS: Furosemide 40 MG/4 ML VIAL IVPUSH (07:54)
[2025-01-22 08:17] LABS: Band Neutrophils Percent 5 % (3-5); Basophils Percent Manual 2 % (0-2); Eosinophils Percent Manual 3 % (0-4); Lymphocytes Percent Manual 5 % (20-40); Metamyelocytes Percent 3 %; Monocytes Percent Manual 7 % (2-11); Myelocytes Percent 1 %; Neutrophils Percent Manual 74 % (45-73)
[2025-01-22 08:18] LABS: Basophils Abs Manual 0.5 X10*3/uL (0.0-0.2); Eosinophils Absolute Manual 0.7 X10*3/uL (0.0-0.4); Hypochromasia 1+ (5-14) /OIF; Lymphocytes Absolute Manual 1.1 X10*3/uL (1.2-4.9); Metamyelocytes Absolute 0.7 X10*3/uL; Monocytes Absolute Manual 1.6 X10*3/uL (0.1-1.2); Myelocytes Absolute 0.2 X10*/uL; Neutrophils Absolute Manual 18.1 X10*3/uL (2.0-8.3); Platelet Estimate NORMAL (NORMAL); Platelet Morphology Comment NORMAL; RBC Morphology NOTED; White Blood Count 22.9 X10*3/uL (4.8-10.8)
--- NOTE | 2025-01-22 09:07 | PM.PNGS ---
Subjective Subjective Date of Service: 01/22/25 Interval history: Had AFib overnight Being followed by Cardiology Started on amiodarone drip Abdominal incision drainage has decreased significantly Stoma functioning well No fever She says she has very poor appetite Physical Exam Vital Signs: Vital Signs: Last Vital Signs Temp 97.5 F 01/22/25 07:18 Pulse 82 01/22/25 07:18 Resp 18 01/22/25 07:18 BP 118/61 01/22/25 07:18 Pulse Ox 94 01/22/25 07:18 O2 Del Method Nasal Cannula 01/22/25 07:18 O2 Flow Rate 1 01/22/25 07:18 BMI result Body Mass Index 30.9 Const: Other: Some mild shortness of breath as baseline Resp: Other: Some shortness of breath Cardio: Rate: regular rate GI: Other: Stoma with good output, incision dry, some scanty drainage from the lower most part no cellulitis Inspection: No distended Palpation (GI): Soft to palpation and not firm Objective Data Active Medications Acetaminophen (Acetaminophen 325 Mg Tablet) 975 mg PO Q6H PRN PRN Reason: Pain, Mild 1-3,fever,headache Diazepam (Diazepam 10 Mg/2 Ml Cartridge) 5 mg IVPUSH Q6H PRN PRN Reason: Anxiety Furosemide (Furosemide 40 Mg/4 Ml Vial) 40 mg IVPUSH DAILY [facility]; Protocol Last Admin: 01/22/25 07:54 Dose: 40 mg Documented By: BAKARI Heparin Sodium (Porcine) (Heparin Sodium,Porcine 5,000 Unit/Ml Vial) 5,000 unit SUBCUT Q8H [facility] Last Admin: 01/22/25 06:10 Dose: 5,000 unit Documented By: TANVI Hydromorphone HCl (Hydromorphone Hcl 2 Mg/Ml Vial) 2 mg IVPUSH Q2H PRN; Protocol PRN Reason: Pain, Severe (Pain Scale 7-10) Last Admin: 01/22/25 07:52 Dose: 2 mg Documented By: BAKARI Piperacillin Sod/Tazobactam (Sod 3.375 gm/ Sodium Chloride) 50 mls @ 100 mls/hr IV Q6H [facility] Last Infusion: 01/22/25 04:45 Dose: Infused Documented By: TANVI Metronidazole (Flagyl) 500 mg in 100 mls @ 100 mls/hr IV Q8H [facility] Last Admin: 01/22/25 07:50 Dose: 100 mls/hr Documented By: BAKARI Nutrition (Parenteral) (Parenteral Nutrition) 1,680 mls @ 70 mls/hr IV .Q24H [facility]; Protocol Stop: 01/22/25 20:59 Last Admin: 01/21/25 20:34 Dose: 70 mls/hr Documented By: VESNA Amiodarone HCl 900 mg/ Sodium (Chloride) 518 mls @ 34.533 mls/hr IVCONT .Q15H1M [facility]; Protocol Last Infusion: 01/22/25 04:01 Dose: 0.5 mg/min, 17.27 mls/hr Documented By: TANVI Mirtazapine (Mirtazapine 15 Mg Tablet) 15 mg PO BEDTIME [facility] Last Admin: 01/21/25 19:41 Dose: 15 mg Documented By: VESNA Ondansetron HCl (Ondansetron Hcl 4 Mg/2 Ml Vial) 4 mg IVPUSH Q4H PRN PRN Reason: Nausea and Vomiting Last Admin: 01/16/25 08:29 Dose: 4 mg Documented By: LUIS Pantoprazole Sodium (Pantoprazole Sodium 40 Mg/10 Ml Vial) 40 mg IVPUSH BID@0630,1630 [facility] Last Admin: 01/22/25 06:10 Dose: 40 mg Documented By: TANVI Pharmacy Consult (Consult Rx Parenteral Nutrition Ordering) 1 each MISCELLANE DAILY PRN PRN Reason: Consult order Labs 01/22/25 06:44 01/22/25 06:44 Labs: Laboratory Results - last 24 hr 01/22/25 01/22/25 01/22/25 06:44 06:44 06:44 MCV 91.2 Cancelled MCH 28.7 Cancelled MCHC 31.5 RDW Plt Count MPV Immature Gran % (Auto) Neut % (Auto) Lymph % (Auto) [place] % (Auto) Eos % (Auto) Baso % (Auto) Lymph # (Auto) [place] # (Auto) Eos # (Auto) Baso # (Auto) Abs Immat Gran (auto) Absolute Neuts (auto) Absolute Nucleated RBC Nucleated RBC % (auto) Neutrophils % (Manual) Band Neutrophils % Lymphocytes % (Manual) Monocytes % (Manual) Eosinophils % (Manual) Basophils % (Manual) Metamyelocytes % Myelocytes % Abs Neuts (Manual) Lymphocytes # (Manual) Monocytes # (Manual) Eosinophils # (Manual) Basophils # (Manual) Metamyelocytes # Myelocytes # Platelet Estimate Plt Morphology Comment RBC Morphology Hypochromasia Anion Gap Estim Creat Clear Calc Estimated GFR Random Glucose Calcium Phosphorus Magnesium Total Bilirubin AST ALT Alkaline Phosphatase Total Protein Albumin TSH 01/22/25 01/22/25 01/22/25 06:44 06:44 06:44 MCV MCH MCHC Cancelled RDW 14.7 Cancelled Plt Count 172 Cancelled MPV 11.5 Immature Gran % (Auto) Neut % (Auto) Lymph % (Auto) [place] % (Auto) Eos % (Auto) Baso % (Auto) Lymph # (Auto) [place] # (Auto) Eos # (Auto) Baso # (Auto) Abs Immat Gran (auto) Absolute Neuts (auto) Absolute Nucleated RBC Nucleated RBC % (auto) Neutrophils % (Manual) Band Neutrophils % Lymphocytes % (Manual) Monocytes % (Manual) Eosinophils % (Manual) Basophils % (Manual) Metamyelocytes % Myelocytes % Abs Neuts (Manual) Lymphocytes # (Manual) Monocytes # (Manual) Eosinophils # (Manual) Basophils # (Manual) Metamyelocytes # Myelocytes # Platelet Estimate Plt Morphology Comment RBC Morphology Hypochromasia Anion Gap Estim Creat Clear Calc Estimated GFR Random Glucose Calcium Phosphorus Magnesium Total Bilirubin AST ALT Alkaline Phosphatase Total Protein Albumin TSH 01/22/25 01/22/25 01/22/25 06:44 06:44 06:44 MCV MCH MCHC RDW Plt Count MPV Cancelled Immature Gran % (Auto) Cancelled Cancelled Neut % (Auto) Cancelled Cancelled Lymph % (Auto) Cancelled [place] % (Auto) Eos % (Auto) Baso % (Auto) Lymph # (Auto) [place] # (Auto) Eos # (Auto) Baso # (Auto) Abs Immat Gran (auto) Absolute Neuts (auto) Absolute Nucleated RBC Nucleated RBC % (auto) Neutrophils % (Manual) Band Neutrophils % Lymphocytes % (Manual) Monocytes % (Manual) Eosinophils % (Manual) Basophils % (Manual) Metamyelocytes % Myelocytes % Abs Neuts (Manual) Lymphocytes # (Manual) Monocytes # (Manual) Eosinophils # (Manual) Basophils # (Manual) Metamyelocytes # Myelocytes # Platelet Estimate Plt Morphology Comment RBC Morphology Hypochromasia Anion Gap Estim Creat Clear Calc Estimated GFR Random Glucose Calcium Phosphorus Magnesium Total Bilirubin AST ALT Alkaline Phosphatase Total Protein Albumin TSH 01/22/25 01/22/25 01/22/25 06:44 06:44 06:44 MCV MCH MCHC RDW Plt Count MPV Immature Gran % (Auto) Neut % (Auto) Lymph % (Auto) Cancelled [place] % (Auto) Cancelled Cancelled Eos % (Auto) Cancelled Cancelled Baso % (Auto) Cancelled Lymph # (Auto) [place] # (Auto) Eos # (Auto) Baso # (Auto) Abs Immat Gran (auto) Absolute Neuts (auto) Absolute Nucleated RBC Nucleated RBC % (auto) Neutrophils % (Manual) Band Neutrophils % Lymphocytes % (Manual) Monocytes % (Manual) Eosinophils % (Manual) Basophils % (Manual) Metamyelocytes % Myelocytes % Abs Neuts (Manual) Lymphocytes # (Manual) Monocytes # (Manual) Eosinophils # (Manual) Basophils # (Manual) Metamyelocytes # Myelocytes # Platelet Estimate Plt Morphology Comment RBC Morphology Hypochromasia Anion Gap Estim Creat Clear Calc Estimated GFR Random Glucose Calcium Phosphorus Magnesium Total Bilirubin AST ALT Alkaline Phosphatase Total Protein Albumin TSH 01/22/25 01/22/25 01/22/25 06:44 06:44 06:44 MCV MCH MCHC RDW Plt Count MPV Immature Gran % (Auto) Neut % (Auto) Lymph % (Auto) [place] % (Auto) Eos % (Auto) Baso % (Auto) Cancelled Lymph # (Auto) Cancelled Cancelled [place] # (Auto) Cancelled Cancelled Eos # (Auto) Cancelled Baso # (Auto) Abs Immat Gran (auto) Absolute Neuts (auto) Absolute Nucleated RBC Nucleated RBC % (auto) Neutrophils % (Manual) Band Neutrophils % Lymphocytes % (Manual) Monocytes % (Manual) Eosinophils % (Manual) Basophils % (Manual) Metamyelocytes % Myelocytes % Abs Neuts (Manual) Lymphocytes # (Manual) Monocytes # (Manual) Eosinophils # (Manual) Basophils # (Manual) Metamyelocytes # Myelocytes # Platelet Estimate Plt Morphology Comment RBC Morphology Hypochromasia Anion Gap Estim Creat Clear Calc Estimated GFR Random Glucose Calcium Phosphorus Magnesium Total Bilirubin AST ALT Alkaline Phosphatase Total Protein Albumin TSH 01/22/25 01/22/25 01/22/25 06:44 06:44 06:44 MCV MCH MCHC RDW Plt Count MPV Immature Gran % (Auto) Neut % (Auto) Lymph % (Auto) [place] % (Auto) Eos % (Auto) Baso % (Auto) Lymph # (Auto) [place] # (Auto) Eos # (Auto) Cancelled Baso # (Auto) Cancelled Cancelled Abs Immat Gran (auto) Cancelled Cancelled Absolute Neuts (auto) Cancelled Absolute Nucleated RBC Nucleated RBC % (auto) Neutrophils % (Manual) Band Neutrophils % Lymphocytes % (Manual) Monocytes % (Manual) Eosinophils % (Manual) Basophils % (Manual) Metamyelocytes % Myelocytes % Abs Neuts (Manual) Lymphocytes # (Manual) Monocytes # (Manual) Eosinophils # (Manual) Basophils # (Manual) Metamyelocytes # Myelocytes # Platelet Estimate Plt Morphology Comment RBC Morphology Hypochromasia Anion Gap Estim Creat Clear Calc Estimated GFR Random Glucose Calcium Phosphorus Magnesium Total Bilirubin AST ALT Alkaline Phosphatase Total Protein Albumin TSH 01/22/25 01/22/25 01/22/25 06:44 06:44 06:44 MCV MCH MCHC RDW Plt Count MPV Immature Gran % (Auto) Neut % (Auto) Lymph % (Auto) [place] % (Auto) Eos % (Auto) Baso % (Auto) Lymph # (Auto) [place] # (Auto) Eos # (Auto) Baso # (Auto) Abs Immat Gran (auto) Absolute Neuts (auto) Cancelled Absolute Nucleated RBC 0.020 H Cancelled Nucleated RBC % (auto) 0.1 Cancelled Neutrophils % (Manual) 74 H Band Neutrophils % 5 Lymphocytes % (Manual) 5 L Monocytes % (Manual) 7 Eosinophils % (Manual) 3 Basophils % (Manual) 2 Metamyelocytes % 3 Myelocytes % 1 Abs Neuts (Manual) 18.1 H Lymphocytes # (Manual) 1.1 L Monocytes # (Manual) 1.6 H Eosinophils # (Manual) 0.7 H Basophils # (Manual) 0.5 H Metamyelocytes # 0.7 Myelocytes # 0.2 Platelet Estimate NORMAL Plt Morphology Comment NORMAL RBC Morphology NOTED Hypochromasia 1+ (5-14) Anion Gap 12 Estim Creat Clear Calc Estimated GFR Random Glucose Calcium Phosphorus Magnesium Total Bilirubin AST ALT Alkaline Phosphatase Total Protein Albumin TSH 01/22/25 01/22/25 01/22/25 06:44 06:44 06:44 MCV MCH MCHC RDW Plt Count MPV Immature Gran % (Auto) Neut % (Auto) Lymph % (Auto) [place] % (Auto) Eos % (Auto) Baso % (Auto) Lymph # (Auto) [place] # (Auto) Eos # (Auto) Baso # (Auto) Abs Immat Gran (auto) Absolute Neuts (auto) Absolute Nucleated RBC Nucleated RBC % (auto) Neutrophils % (Manual) Band Neutrophils % Lymphocytes % (Manual) Monocytes % (Manual) Eosinophils % (Manual) Basophils % (Manual) Metamyelocytes % Myelocytes % Abs Neuts (Manual) Lymphocytes # (Manual) Monocytes # (Manual) Eosinophils # (Manual) Basophils # (Manual) Metamyelocytes # Myelocytes # Platelet Estimate Plt Morphology Comment RBC Morphology Hypochromasia Anion Gap 10 L Estim Creat Clear Calc 77.9 79.1 Estimated GFR > 60 > 60 Random Glucose 109 Calcium Phosphorus Magnesium Total Bilirubin AST ALT Alkaline Phosphatase Total Protein Albumin TSH 01/22/25 01/22/25 06:44 06:44 MCV MCH MCHC RDW Plt Count MPV Immature Gran % (Auto) Neut % (Auto) Lymph % (Auto) [place] % (Auto) Eos % (Auto) Baso % (Auto) Lymph # (Auto) [place] # (Auto) Eos # (Auto) Baso # (Auto) Abs Immat Gran (auto) Absolute Neuts (auto) Absolute Nucleated RBC Nucleated RBC % (auto) Neutrophils % (Manual) Band Neutrophils % Lymphocytes % (Manual) Monocytes % (Manual) Eosinophils % (Manual) Basophils % (Manual) Metamyelocytes % Myelocytes % Abs Neuts (Manual) Lymphocytes # (Manual) Monocytes # (Manual) Eosinophils # (Manual) Basophils # (Manual) Metamyelocytes # Myelocytes # Platelet Estimate Plt Morphology Comment RBC Morphology Hypochromasia Anion Gap Estim Creat Clear Calc Estimated GFR Random Glucose 112 Calcium 8.1 L 8.1 L Phosphorus 3.4 Magnesium 1.8 Total Bilirubin 1.0 AST 30 ALT < 6 Alkaline Phosphatase 80 Total Protein 7.0 Albumin 2.5 L TSH 2.58 Microbiology Microbiology Results: Microbiology 01/21/25 12:33 Gram Stain - Final Incision Routine Culture - Preliminary Culture in progress. Anaerobic Culture - Preliminary Culture in progress. Procedures Date of Service Date of Service: 01/22/25 Progress Note: A&P Assessment and plan (1) Intra-abdominal abscess post-procedure: Status: Acute Assessment and Plan: She had significant drainage from the incision yesterday likely from the intra-abdominal source White count still elevated However, no fever Abdomen is soft and benign, clinically stable We will try on regular diet and see how she does TPN for now Hospitalist following Cardiology following for atrial fibrillation Time Spent With Patient Time: Total time managing care of this patient today ____ minutes. Quality Stroke Does the patient have a stroke diagnosis?: No VTE Prior VTE?: No VTE Risk Level:: Medical - moderate - high VTE Device Contraindication: N/A - Device Ordered VTE Drug Contraindication: N/A - Med Ordered
--- NOTE | 2025-01-22 09:57 | MHC.CLN ---
F/U PO INTAKE 75% X2 MEALS DIET ADVANCED TO FULL LIQUID RECOMMEND ADDING ENSURE TID TO INCREASE KCALS SUPP TO PROVIDE 1050KCALS, 60G PROTEIN WITH 100% ACCEPTANCE REVIEWED LABS DISCUSSED WITH PHARMACY CONTINUE TPN AT MAX GOAL RATE OF 70ML/HR WITH 25G LIPIDS PROVIDES 1443 TOTAL KCALS (25KCALS/KG BASED ON CMW), 252G DEXTROSE, 84G PROTEIN (1.4G/KG) REPLETE LYTES NEEDED MONITOR PO INTAKE CLOSELY AND ENCOURAGE SUPPLEMENT
--- NOTE | 2025-01-22 11:44 | PM.CNCAR ---
History of Present Illness History of Present Illness Date of Service: 01/22/25 Requesting physician: Fred Lindo Chief complaint: abdominal abscess, atrial flutter Narrative: 64-year-old female with complex surgical history with previous bowel perforation requiring colostomy. She recently had surgery at [facility] where hernia was repaired and she had colectomy and currently has ileostomy. Unfortunately had abdominal pain and has been diagnosed with an abdominal abscess. In his same setting she has developed tachycardia and was noted to be in atrial flutter. This lasted approximately 2 hours. She was given amiodarone bolus and she has converted to sinus rhythm. She continues to be on amiodarone. Very emotional due to multiple surgeries in the last year and ongoing abdominal issues. [facility] Past Medical History Medical History Insomnia Bilateral knee pain Polyarthralgia MARKIE (acute kidney injury) Back pain Arthritis History of transfusion of packed red blood cells Anemia Cardiomyopathy MARKIE (acute kidney injury) MARKIE (acute kidney injury) Anxiety Small bowel obstruction Myocardial infarction NSTEMI (non-ST elevated myocardial infarction) NSVT (nonsustained ventricular tachycardia) PVC (premature ventricular contraction) Hypertension Perforated diverticulum Irritable bowel syndrome with constipation Barretts esophagus GERD (gastroesophageal reflux disease) Family History Family History Father Colon cancer Congestive heart failure Paternal Aunt Colon cancer Mother Congestive heart failure Afib Surgical History Surgical History S/P colon resection PIC line (peripherally inserted central catheter) removal History of low anterior resection of rectum Status post cardiac catheterization Ileostomy in place H/O dilation and curettage History of exploratory laparotomy (05/11/23) S/P colostomy Colovesical fistula History of esophagogastroduodenoscopy (EGD) Hx of colonoscopy Social History Social History Household Members: None Housing: House Are you a primary out of school hours care worker to a significant other at home: No Do you presently have visiting nurse or other home services: Yes ([facility]) Alcohol intake: never Comment: located near nursing station Patient Tobacco Use Status: Former Tobacco user Tobacco use type: Cigarette Cigarette Packs Per Day: 0.5 Cigarettes Per Day: 10.0 Years Smoked: 25 Smoked in Last 30 Days: No e-Cigarette/Vaping Use: Former Use Patient Interested in Nicotine Replacement: No Patient Given Instructions on How to Stop Smoking: No Second Hand Smoke Exposure: No Substance Use Type: Marijuana Currently Displaying Signs/Symptoms of Drug Intoxication Withdrawal: No Have you been hit, kicked, punched, or otherwise hurt by someone within the past year? If so, by whom?: No Do you feel safe in your current relationship?: No Current Relationship Is there a partner from a previous relationship who is making you feel unsafe now?: No Are you made to feel afraid or neglected: No Spiritual Healthcare Practices: none Advance Directives: Yes Advance Directives Information Provided: No Advance Directives on File: Yes Advance Directives Date on File: 12/29/23 Do you have a plan to hurt others: No Plan Recently lost weight without trying: No Eating poorly because of decreased appetite: Yes Nutrition Risks: Acute nausea or vomiting x1 week Patient : No : No Poor oral hygiene: No service: No Cognitive needs: No Hearing needs: No Vision needs: Yes Meds Allergies Allergy/AdvReac Type Severity Reaction Status Date / Time clams Allergy Severe Stomach Verified 01/15/25 09:33 Upset clavulanic acid [Augmentin] Allergy Unknown GI, Verified 01/15/25 09:33 Difficulty breathing codeine [CODEINE] Allergy Unknown SENSITIVIT Verified 01/15/25 09:33 Y erythromycin base Allergy Unknown GI, DIFF Verified 01/15/25 09:33 [Erythromycin Base] BREATHING Sulfa (Sulfonamide Allergy Unknown RASH Verified 01/15/25 09:33 Antibiotics) morphine [MORPHINE] AdvReac Severe NAUSEA Verified 01/15/25 09:33 aspirin [Aspirin] AdvReac Mild STOMACH Verified 01/15/25 09:33 UPSET melatonin AdvReac Vomiting Verified 01/15/25 09:33 Active Medications: Current Medications Acetaminophen (Acetaminophen 325 Mg Tablet) 975 mg PO Q6H PRN PRN Reason: Pain, Mild 1-3,fever,headache Diazepam (Diazepam 10 Mg/2 Ml Cartridge) 5 mg IVPUSH Q6H PRN PRN Reason: Anxiety Furosemide (Furosemide 40 Mg/4 Ml Vial) 40 mg IVPUSH DAILY [facility]; Protocol Last Admin: 01/22/25 07:54 Dose: 40 mg Heparin Sodium (Porcine) (Heparin Sodium,Porcine 5,000 Unit/Ml Vial) 5,000 unit SUBCUT Q8H [facility] Last Admin: 01/22/25 06:10 Dose: 5,000 unit Hydromorphone HCl (Hydromorphone Hcl 2 Mg/Ml Vial) 2 mg IVPUSH Q2H PRN; Protocol PRN Reason: Pain, Severe (Pain Scale 7-10) Last Admin: 01/22/25 07:52 Dose: 2 mg Piperacillin Sod/Tazobactam (Sod 3.375 gm/ Sodium Chloride) 50 mls @ 100 mls/hr IV Q6H [facility] Last Infusion: 01/22/25 10:32 Dose: Infused Metronidazole (Flagyl) 500 mg in 100 mls @ 100 mls/hr IV Q8H [facility] Last Infusion: 01/22/25 10:32 Dose: Infused Nutrition (Parenteral) (Parenteral Nutrition) 1,680 mls @ 70 mls/hr IV .Q24H [facility]; Protocol Stop: 01/22/25 20:59 Last Admin: 01/21/25 20:34 Dose: 70 mls/hr Amiodarone HCl 900 mg/ Sodium (Chloride) 518 mls @ 34.533 mls/hr IVCONT .Q15H1M [facility]; Protocol Last Infusion: 01/22/25 04:01 Dose: 0.5 mg/min, 17.27 mls/hr Nutrition (Parenteral) (Parenteral Nutrition) 1,680 mls @ 70 mls/hr IV .Q24H [facility]; Protocol Stop: 01/23/25 20:59 Mirtazapine (Mirtazapine 15 Mg Tablet) 15 mg PO BEDTIME [facility] Last Admin: 01/21/25 19:41 Dose: 15 mg Ondansetron HCl (Ondansetron Hcl 4 Mg/2 Ml Vial) 4 mg IVPUSH Q4H PRN PRN Reason: Nausea and Vomiting Last Admin: 01/16/25 08:29 Dose: 4 mg Pantoprazole Sodium (Pantoprazole Sodium 40 Mg/10 Ml Vial) 40 mg IVPUSH BID@0630,1630 [facility] Last Admin: 01/22/25 06:10 Dose: 40 mg Pharmacy Consult (Consult Rx Parenteral Nutrition Ordering) 1 each MISCELLANE DAILY PRN PRN Reason: Consult order Home Medications ?Medication ?Instructions ?Recorded ?Confirmed ?Last Taken ?Type calcium 600 mg (as 1 tab PO DAILY 11/30/23 01/15/25 03/19/24 09:00 History carbonate)-vitamin D3 5 mcg (200 unit) tablet (Calcium 600 + D(3)) mirtazapine 15 mg tablet 15 mg PO BEDTIME 11/30/23 01/15/25 03/19/24 09:00 History acetaminophen 325 mg tablet 650 mg PO Q12H PRN Pain 01/07/24 01/15/25 03/19/24 09:00 History (Tylenol) multivitamin with minerals-folic 1 tab PO DAILY 01/07/24 01/15/25 03/19/24 09:00 History acid 200 mcg chewable tablet (Multivitamin Gummies) carisoprodol 350 mg tablet 350 mg PO BEDTIME 03/19/24 01/15/25 03/19/24 09:00 History magnesium glycinate 800 mg PO DAILY 03/19/24 01/15/25 03/19/24 09:00 History B-complex with vitamin C 1 tab PO DAILY 01/15/25 01/15/25 Unknown History fluticasone propionate 50 1 spray intranasal DAILY 01/15/25 01/15/25 Unknown History mcg/actuation nasal spray,suspension hydrochlorothiazide 25 mg tablet 25 mg PO DAILY 01/15/25 01/15/25 Unknown History hydromorphone 2 mg tablet 2 - 4 mg PO Q3H PRN pain 01/15/25 01/15/25 Unknown History ibuprofen 200 mg tablet 400 mg PO Q6H PRN Pain 01/15/25 01/15/25 Unknown History losartan 25 mg tablet 25 mg PO DAILY 01/15/25 01/15/25 Unknown History ondansetron 4 mg disintegrating 4 mg PO Q8H PRN Nausea And Vomiting 01/15/25 01/15/25 Unknown History tablet potassium chloride 10 mEq 10 meq PO DAILY 01/15/25 01/15/25 Unknown History tablet,extended release Physical Exam Vital Signs: Vital Signs: Last Vital Signs Temp 97.2 F 01/22/25 11:08 Pulse 89 01/22/25 11:08 Resp 16 01/22/25 11:08 BP 110/58 L 01/22/25 11:08 Pulse Ox 91 L 01/22/25 11:08 O2 Del Method Room Air 01/22/25 11:08 O2 Flow Rate 1 01/22/25 07:18 BMI result Body Mass Index 30.9 GENERAL APPEARANCE: Distressed emotionally. Complaining of abdominal pain. NECK: no carotid bruit, no jugular venous distention. SKIN: no suspicious lesions, warm and dry. HEART: no murmurs, regular rate and rhythm. LUNGS: clear to auscultation bilaterally. ABDOMEN: soft, right abdominal wall ileostomy with back. Midline wound which is currently dressed. EXTREMITIES: no edema. PERIPHERAL PULSES: equal. NEUROLOGIC: No gross deficits, AAO X 3 Objective Labs and Meds 01/22/25 06:44 01/22/25 06:44 Lab results: Laboratory Results - last 24 hr 01/22/25 01/22/25 01/22/25 06:44 06:44 06:44 WBC 22.9 H Cancelled RBC 2.96 L Cancelled Hgb 8.5 L Hct MCV MCH MCHC RDW Plt Count MPV Immature Gran % (Auto) Neut % (Auto) Lymph % (Auto) [place] % (Auto) Eos % (Auto) Baso % (Auto) Lymph # (Auto) [place] # (Auto) Eos # (Auto) Baso # (Auto) Abs Immat Gran (auto) Absolute Neuts (auto) Absolute Nucleated RBC Nucleated RBC % (auto) Neutrophils % (Manual) Band Neutrophils % Lymphocytes % (Manual) Monocytes % (Manual) Eosinophils % (Manual) Basophils % (Manual) Metamyelocytes % Myelocytes % Abs Neuts (Manual) Lymphocytes # (Manual) Monocytes # (Manual) Eosinophils # (Manual) Basophils # (Manual) Metamyelocytes # Myelocytes # Platelet Estimate Plt Morphology Comment RBC Morphology Hypochromasia Sodium Potassium Chloride Carbon Dioxide Anion Gap BUN Creatinine Estim Creat Clear Calc Estimated GFR Random Glucose Calcium Phosphorus Magnesium Total Bilirubin AST ALT Alkaline Phosphatase Total Protein Albumin TSH 01/22/25 01/22/25 01/22/25 06:44 06:44 06:44 WBC RBC Hgb Cancelled Hct 27.0 L Cancelled MCV 91.2 Cancelled MCH 28.7 MCHC RDW Plt Count MPV Immature Gran % (Auto) Neut % (Auto) Lymph % (Auto) [place] % (Auto) Eos % (Auto) Baso % (Auto) Lymph # (Auto) [place] # (Auto) Eos # (Auto) Baso # (Auto) Abs Immat Gran (auto) Absolute Neuts (auto) Absolute Nucleated RBC Nucleated RBC % (auto) Neutrophils % (Manual) Band Neutrophils % Lymphocytes % (Manual) Monocytes % (Manual) Eosinophils % (Manual) Basophils % (Manual) Metamyelocytes % Myelocytes % Abs Neuts (Manual) Lymphocytes # (Manual) Monocytes # (Manual) Eosinophils # (Manual) Basophils # (Manual) Metamyelocytes # Myelocytes # Platelet Estimate Plt Morphology Comment RBC Morphology Hypochromasia Sodium Potassium Chloride Carbon Dioxide Anion Gap BUN Creatinine Estim Creat Clear Calc Estimated GFR Random Glucose Calcium Phosphorus Magnesium Total Bilirubin AST ALT Alkaline Phosphatase Total Protein Albumin TSH 01/22/25 01/22/25 01/22/25 06:44 06:44 06:44 WBC RBC Hgb Hct MCV MCH Cancelled MCHC 31.5 Cancelled RDW 14.7 Cancelled Plt Count 172 MPV Immature Gran % (Auto) Neut % (Auto) Lymph % (Auto) [place] % (Auto) Eos % (Auto) Baso % (Auto) Lymph # (Auto) [place] # (Auto) Eos # (Auto) Baso # (Auto) Abs Immat Gran (auto) Absolute Neuts (auto) Absolute Nucleated RBC Nucleated RBC % (auto) Neutrophils % (Manual) Band Neutrophils % Lymphocytes % (Manual) Monocytes % (Manual) Eosinophils % (Manual) Basophils % (Manual) Metamyelocytes % Myelocytes % Abs Neuts (Manual) Lymphocytes # (Manual) Monocytes # (Manual) Eosinophils # (Manual) Basophils # (Manual) Metamyelocytes # Myelocytes # Platelet Estimate Plt Morphology Comment RBC Morphology Hypochromasia Sodium Potassium Chloride Carbon Dioxide Anion Gap BUN Creatinine Estim Creat Clear Calc Estimated GFR Random Glucose Calcium Phosphorus Magnesium Total Bilirubin AST ALT Alkaline Phosphatase Total Protein Albumin TSH 01/22/25 01/22/25 01/22/25 06:44 06:44 06:44 WBC RBC Hgb Hct MCV MCH MCHC RDW Plt Count Cancelled MPV 11.5 Cancelled Immature Gran % (Auto) Cancelled Cancelled Neut % (Auto) Cancelled Lymph % (Auto) [place] % (Auto) Eos % (Auto) Baso % (Auto) Lymph # (Auto) [place] # (Auto) Eos # (Auto) Baso # (Auto) Abs Immat Gran (auto) Absolute Neuts (auto) Absolute Nucleated RBC Nucleated RBC % (auto) Neutrophils % (Manual) Band Neutrophils % Lymphocytes % (Manual) Monocytes % (Manual) Eosinophils % (Manual) Basophils % (Manual) Metamyelocytes % Myelocytes % Abs Neuts (Manual) Lymphocytes # (Manual) Monocytes # (Manual) Eosinophils # (Manual) Basophils # (Manual) Metamyelocytes # Myelocytes # Platelet Estimate Plt Morphology Comment RBC Morphology Hypochromasia Sodium Potassium Chloride Carbon Dioxide Anion Gap BUN Creatinine Estim Creat Clear Calc Estimated GFR Random Glucose Calcium Phosphorus Magnesium Total Bilirubin AST ALT Alkaline Phosphatase Total Protein Albumin TSH 01/22/25 01/22/25 01/22/25 06:44 06:44 06:44 WBC RBC Hgb Hct MCV MCH MCHC RDW Plt Count MPV Immature Gran % (Auto) Neut % (Auto) Cancelled Lymph % (Auto) Cancelled Cancelled [place] % (Auto) Cancelled Cancelled Eos % (Auto) Cancelled Baso % (Auto) Lymph # (Auto) [place] # (Auto) Eos # (Auto) Baso # (Auto) Abs Immat Gran (auto) Absolute Neuts (auto) Absolute Nucleated RBC Nucleated RBC % (auto) Neutrophils % (Manual) Band Neutrophils % Lymphocytes % (Manual) Monocytes % (Manual) Eosinophils % (Manual) Basophils % (Manual) Metamyelocytes % Myelocytes % Abs Neuts (Manual) Lymphocytes # (Manual) Monocytes # (Manual) Eosinophils # (Manual) Basophils # (Manual) Metamyelocytes # Myelocytes # Platelet Estimate Plt Morphology Comment RBC Morphology Hypochromasia Sodium Potassium Chloride Carbon Dioxide Anion Gap BUN Creatinine Estim Creat Clear Calc Estimated GFR Random Glucose Calcium Phosphorus Magnesium Total Bilirubin AST ALT Alkaline Phosphatase Total Protein Albumin TSH 01/22/25 01/22/25 01/22/25 06:44 06:44 06:44 WBC RBC Hgb Hct MCV MCH MCHC RDW Plt Count MPV Immature Gran % (Auto) Neut % (Auto) Lymph % (Auto) [place] % (Auto) Eos % (Auto) Cancelled Baso % (Auto) Cancelled Cancelled Lymph # (Auto) Cancelled Cancelled [place] # (Auto) Cancelled Eos # (Auto) Baso # (Auto) Abs Immat Gran (auto) Absolute Neuts (auto) Absolute Nucleated RBC Nucleated RBC % (auto) Neutrophils % (Manual) Band Neutrophils % Lymphocytes % (Manual) Monocytes % (Manual) Eosinophils % (Manual) Basophils % (Manual) Metamyelocytes % Myelocytes % Abs Neuts (Manual) Lymphocytes # (Manual) Monocytes # (Manual) Eosinophils # (Manual) Basophils # (Manual) Metamyelocytes # Myelocytes # Platelet Estimate Plt Morphology Comment RBC Morphology Hypochromasia Sodium Potassium Chloride Carbon Dioxide Anion Gap BUN Creatinine Estim Creat Clear Calc Estimated GFR Random Glucose Calcium Phosphorus Magnesium Total Bilirubin AST ALT Alkaline Phosphatase Total Protein Albumin TSH 01/22/25 01/22/25 01/22/25 06:44 06:44 06:44 WBC RBC Hgb Hct MCV MCH MCHC RDW Plt Count MPV Immature Gran % (Auto) Neut % (Auto) Lymph % (Auto) [place] % (Auto) Eos % (Auto) Baso % (Auto) Lymph # (Auto) [place] # (Auto) Cancelled Eos # (Auto) Cancelled Cancelled Baso # (Auto) Cancelled Cancelled Abs Immat Gran (auto) Cancelled Absolute Neuts (auto) Absolute Nucleated RBC Nucleated RBC % (auto) Neutrophils % (Manual) Band Neutrophils % Lymphocytes % (Manual) Monocytes % (Manual) Eosinophils % (Manual) Basophils % (Manual) Metamyelocytes % Myelocytes % Abs Neuts (Manual) Lymphocytes # (Manual) Monocytes # (Manual) Eosinophils # (Manual) Basophils # (Manual) Metamyelocytes # Myelocytes # Platelet Estimate Plt Morphology Comment RBC Morphology Hypochromasia Sodium Potassium Chloride Carbon Dioxide Anion Gap BUN Creatinine Estim Creat Clear Calc Estimated GFR Random Glucose Calcium Phosphorus Magnesium Total Bilirubin AST ALT Alkaline Phosphatase Total Protein Albumin TSH 01/22/25 01/22/25 01/22/25 06:44 06:44 06:44 WBC RBC Hgb Hct MCV MCH MCHC RDW Plt Count MPV Immature Gran % (Auto) Neut % (Auto) Lymph % (Auto) [place] % (Auto) Eos % (Auto) Baso % (Auto) Lymph # (Auto) [place] # (Auto) Eos # (Auto) Baso # (Auto) Abs Immat Gran (auto) Cancelled Absolute Neuts (auto) Cancelled Cancelled Absolute Nucleated RBC 0.020 H Cancelled Nucleated RBC % (auto) 0.1 Neutrophils % (Manual) Band Neutrophils % Lymphocytes % (Manual) Monocytes % (Manual) Eosinophils % (Manual) Basophils % (Manual) Metamyelocytes % Myelocytes % Abs Neuts (Manual) Lymphocytes # (Manual) Monocytes # (Manual) Eosinophils # (Manual) Basophils # (Manual) Metamyelocytes # Myelocytes # Platelet Estimate Plt Morphology Comment RBC Morphology Hypochromasia Sodium Potassium Chloride Carbon Dioxide Anion Gap BUN Creatinine Estim Creat Clear Calc Estimated GFR Random Glucose Calcium Phosphorus Magnesium Total Bilirubin AST ALT Alkaline Phosphatase Total Protein Albumin TSH 01/22/25 01/22/25 01/22/25 06:44 06:44 06:44 WBC RBC Hgb Hct MCV MCH MCHC RDW Plt Count MPV Immature Gran % (Auto) Neut % (Auto) Lymph % (Auto) [place] % (Auto) Eos % (Auto) Baso % (Auto) Lymph # (Auto) [place] # (Auto) Eos # (Auto) Baso # (Auto) Abs Immat Gran (auto) Absolute Neuts (auto) Absolute Nucleated RBC Nucleated RBC % (auto) Cancelled Neutrophils % (Manual) 74 H Band Neutrophils % 5 Lymphocytes % (Manual) 5 L Monocytes % (Manual) 7 Eosinophils % (Manual) 3 Basophils % (Manual) 2 Metamyelocytes % 3 Myelocytes % 1 Abs Neuts (Manual) 18.1 H Lymphocytes # (Manual) 1.1 L Monocytes # (Manual) 1.6 H Eosinophils # (Manual) 0.7 H Basophils # (Manual) 0.5 H Metamyelocytes # 0.7 Myelocytes # 0.2 Platelet Estimate NORMAL Plt Morphology Comment NORMAL RBC Morphology NOTED Hypochromasia 1+ (5-14) Sodium 137 135 Potassium 4.1 4.1 Chloride 101 Carbon Dioxide Anion Gap BUN Creatinine Estim Creat Clear Calc Estimated GFR Random Glucose Calcium Phosphorus Magnesium Total Bilirubin AST ALT Alkaline Phosphatase Total Protein Albumin TSH 01/22/25 01/22/25 01/22/25 06:44 06:44 06:44 WBC RBC Hgb Hct MCV MCH MCHC RDW Plt Count MPV Immature Gran % (Auto) Neut % (Auto) Lymph % (Auto) [place] % (Auto) Eos % (Auto) Baso % (Auto) Lymph # (Auto) [place] # (Auto) Eos # (Auto) Baso # (Auto) Abs Immat Gran (auto) Absolute Neuts (auto) Absolute Nucleated RBC Nucleated RBC % (auto) Neutrophils % (Manual) Band Neutrophils % Lymphocytes % (Manual) Monocytes % (Manual) Eosinophils % (Manual) Basophils % (Manual) Metamyelocytes % Myelocytes % Abs Neuts (Manual) Lymphocytes # (Manual) Monocytes # (Manual) Eosinophils # (Manual) Basophils # (Manual) Metamyelocytes # Myelocytes # Platelet Estimate Plt Morphology Comment RBC Morphology Hypochromasia Sodium Potassium Chloride 102 Carbon Dioxide 28 27 Anion Gap 12 10 L BUN 28 H Creatinine Estim Creat Clear Calc Estimated GFR Random Glucose Calcium Phosphorus Magnesium Total Bilirubin AST ALT Alkaline Phosphatase Total Protein Albumin TSH 01/22/25 01/22/25 01/22/25 06:44 06:44 06:44 WBC RBC Hgb Hct MCV MCH MCHC RDW Plt Count MPV Immature Gran % (Auto) Neut % (Auto) Lymph % (Auto) [place] % (Auto) Eos % (Auto) Baso % (Auto) Lymph # (Auto) [place] # (Auto) Eos # (Auto) Baso # (Auto) Abs Immat Gran (auto) Absolute Neuts (auto) Absolute Nucleated RBC Nucleated RBC % (auto) Neutrophils % (Manual) Band Neutrophils % Lymphocytes % (Manual) Monocytes % (Manual) Eosinophils % (Manual) Basophils % (Manual) Metamyelocytes % Myelocytes % Abs Neuts (Manual) Lymphocytes # (Manual) Monocytes # (Manual) Eosinophils # (Manual) Basophils # (Manual) Metamyelocytes # Myelocytes # Platelet Estimate Plt Morphology Comment RBC Morphology Hypochromasia Sodium Potassium Chloride Carbon Dioxide Anion Gap BUN 28 H Creatinine 0.69 0.68 Estim Creat Clear Calc 77.9 79.1 Estimated GFR > 60 Random Glucose Calcium Phosphorus Magnesium Total Bilirubin AST ALT Alkaline Phosphatase Total Protein Albumin TSH 01/22/25 01/22/25 01/22/25 06:44 06:44 06:44 WBC RBC Hgb Hct MCV MCH MCHC RDW Plt Count MPV Immature Gran % (Auto) Neut % (Auto) Lymph % (Auto) [place] % (Auto) Eos % (Auto) Baso % (Auto) Lymph # (Auto) [place] # (Auto) Eos # (Auto) Baso # (Auto) Abs Immat Gran (auto) Absolute Neuts (auto) Absolute Nucleated RBC Nucleated RBC % (auto) Neutrophils % (Manual) Band Neutrophils % Lymphocytes % (Manual) Monocytes % (Manual) Eosinophils % (Manual) Basophils % (Manual) Metamyelocytes % Myelocytes % Abs Neuts (Manual) Lymphocytes # (Manual) Monocytes # (Manual) Eosinophils # (Manual) Basophils # (Manual) Metamyelocytes # Myelocytes # Platelet Estimate Plt Morphology Comment RBC Morphology Hypochromasia Sodium Potassium Chloride Carbon Dioxide Anion Gap BUN Creatinine Estim Creat Clear Calc Estimated GFR > 60 Random Glucose 109 112 Calcium 8.1 L 8.1 L Phosphorus 3.4 Magnesium 1.8 Total Bilirubin 1.0 AST 30 ALT < 6 Alkaline Phosphatase 80 Total Protein 7.0 Albumin 2.5 L TSH 2.58 Assessment and Plan (1) Intra-abdominal abscess post-procedure: Status: Acute (2) Atrial flutter: Status: Acute Plan 64 year female with multiple abdominal surgeries currently in with abdominal abscess. She had episode of atrial flutter and has converted to sinus rhythm at this point and is currently on amiodarone. She also had episode of heart failure with pulmonary edema. She is significantly anemic and we will benefit from blood transfusion. Continue IV diuretics. Till she is able to take oral I think we continue the amiodarone drip. I think she will benefit from it because recurrent atrial arrhythmia with ongoing abscess will be challenging to manage and she has a trigger for arrhythmia currently due to infection. We can discuss about long-term anticoagulation once she is stabilizing more. Thank you for allowing me to participate in the care of your patient. Please feel free to contact me if you have any questions. Procedures Date of Service Date of Service: 01/22/25
--- NOTE | 2025-01-22 12:23 | HO.PM.IMPN ---
Subjective Subjective Date of Service: 01/22/25 Interval History: spasms Physical Exam Vital Signs: Vital Signs: Last Vital Signs Temp 97.2 F 01/22/25 11:08 Pulse 89 01/22/25 11:08 Resp 16 01/22/25 11:08 BP 110/58 L 01/22/25 11:08 Pulse Ox 91 L 01/22/25 11:08 O2 Del Method Room Air 01/22/25 11:08 O2 Flow Rate 1 01/22/25 07:18 BMI result Body Mass Index 30.9 GENERAL APPEARANCE: Distressed emotionally. Complaining of abdominal pain. NECK: no carotid bruit, no jugular venous distention. SKIN: no suspicious lesions, warm and dry. HEART: no murmurs, regular rate and rhythm. LUNGS: clear to auscultation bilaterally. ABDOMEN: soft, right abdominal wall ileostomy with back. Midline wound which is currently dressed. EXTREMITIES: no edema. PERIPHERAL PULSES: equal. NEUROLOGIC: No gross deficits, AAO X 3 Objective Data Active Medications Acetaminophen (Acetaminophen 325 Mg Tablet) 975 mg PO Q6H PRN PRN Reason: Pain, Mild 1-3,fever,headache Diazepam (Diazepam 10 Mg/2 Ml Cartridge) 5 mg IVPUSH Q6H PRN PRN Reason: Anxiety Furosemide (Furosemide 40 Mg/4 Ml Vial) 40 mg IVPUSH DAILY [facility], [facility]; Protocol Last Admin: 01/22/25 07:54 Dose: 40 mg Documented By: BAKARI Heparin Sodium (Porcine) (Heparin Sodium,Porcine 5,000 Unit/Ml Vial) 5,000 unit SUBCUT Q8H [facility] Last Admin: 01/22/25 06:10 Dose: 5,000 unit Documented By: TANVI Hydromorphone HCl (Hydromorphone Hcl 2 Mg/Ml Vial) 2 mg IVPUSH Q2H PRN; Protocol PRN Reason: Pain, Severe (Pain Scale 7-10) Last Admin: 01/22/25 07:52 Dose: 2 mg Documented By: BAKARI Piperacillin Sod/Tazobactam (Sod 3.375 gm/ Sodium Chloride) 50 mls @ 100 mls/hr IV Q6H [facility] Last Infusion: 01/22/25 10:32 Dose: Infused Documented By: BAKARI Metronidazole (Flagyl) 500 mg in 100 mls @ 100 mls/hr IV Q8H [facility] Last Infusion: 01/22/25 10:32 Dose: Infused Documented By: BAKARI Nutrition (Parenteral) (Parenteral Nutrition) 1,680 mls @ 70 mls/hr IV .Q24H ARISTIDES; Protocol Stop: 01/22/25 20:59 Last Admin: 01/21/25 20:34 Dose: 70 mls/hr Documented By: VESNA Amiodarone HCl 900 mg/ Sodium (Chloride) 518 mls @ 34.533 mls/hr IVCONT .Q15H1M [facility]; Protocol Last Infusion: 01/22/25 04:01 Dose: 0.5 mg/min, 17.27 mls/hr Documented By: TANVI Nutrition (Parenteral) (Parenteral Nutrition) 1,680 mls @ 70 mls/hr IV .Q24H ARISTIDES; Protocol Stop: 01/23/25 20:59 Mirtazapine (Mirtazapine 15 Mg Tablet) 15 mg PO BEDTIME [facility] Last Admin: 01/21/25 19:41 Dose: 15 mg Documented By: VESNA Ondansetron HCl (Ondansetron Hcl 4 Mg/2 Ml Vial) 4 mg IVPUSH Q4H PRN PRN Reason: Nausea and Vomiting Last Admin: 01/16/25 08:29 Dose: 4 mg Documented By: LUIS Pantoprazole Sodium (Pantoprazole Sodium 40 Mg/10 Ml Vial) 40 mg IVPUSH BID@0630,1630 [facility] Last Admin: 01/22/25 06:10 Dose: 40 mg Documented By: TANVI Pharmacy Consult (Consult Rx Parenteral Nutrition Ordering) 1 each MISCELLANE DAILY PRN PRN Reason: Consult order Labs 01/22/25 06:44 01/22/25 06:44 Labs: Laboratory Results - last 24 hr 01/22/25 01/22/25 01/22/25 06:44 06:44 06:44 MCV 91.2 Cancelled MCH 28.7 Cancelled MCHC 31.5 RDW Plt Count MPV Immature Gran % (Auto) Neut % (Auto) Lymph % (Auto) [place] % (Auto) Eos % (Auto) Baso % (Auto) Lymph # (Auto) [place] # (Auto) Eos # (Auto) Baso # (Auto) Abs Immat Gran (auto) Absolute Neuts (auto) Absolute Nucleated RBC Nucleated RBC % (auto) Neutrophils % (Manual) Band Neutrophils % Lymphocytes % (Manual) Monocytes % (Manual) Eosinophils % (Manual) Basophils % (Manual) Metamyelocytes % Myelocytes % Abs Neuts (Manual) Lymphocytes # (Manual) Monocytes # (Manual) Eosinophils # (Manual) Basophils # (Manual) Metamyelocytes # Myelocytes # Platelet Estimate Plt Morphology Comment RBC Morphology Hypochromasia Anion Gap Estim Creat Clear Calc Estimated GFR Random Glucose Calcium Phosphorus Magnesium Total Bilirubin AST ALT Alkaline Phosphatase Total Protein Albumin TSH 01/22/25 01/22/25 01/22/25 06:44 06:44 06:44 MCV MCH MCHC Cancelled RDW 14.7 Cancelled Plt Count 172 Cancelled MPV 11.5 Immature Gran % (Auto) Neut % (Auto) Lymph % (Auto) [place] % (Auto) Eos % (Auto) Baso % (Auto) Lymph # (Auto) [place] # (Auto) Eos # (Auto) Baso # (Auto) Abs Immat Gran (auto) Absolute Neuts (auto) Absolute Nucleated RBC Nucleated RBC % (auto) Neutrophils % (Manual) Band Neutrophils % Lymphocytes % (Manual) Monocytes % (Manual) Eosinophils % (Manual) Basophils % (Manual) Metamyelocytes % Myelocytes % Abs Neuts (Manual) Lymphocytes # (Manual) Monocytes # (Manual) Eosinophils # (Manual) Basophils # (Manual) Metamyelocytes # Myelocytes # Platelet Estimate Plt Morphology Comment RBC Morphology Hypochromasia Anion Gap Estim Creat Clear Calc Estimated GFR Random Glucose Calcium Phosphorus Magnesium Total Bilirubin AST ALT Alkaline Phosphatase Total Protein Albumin TSH 01/22/25 01/22/25 01/22/25 06:44 06:44 06:44 MCV MCH MCHC RDW Plt Count MPV Cancelled Immature Gran % (Auto) Cancelled Cancelled Neut % (Auto) Cancelled Cancelled Lymph % (Auto) Cancelled [place] % (Auto) Eos % (Auto) Baso % (Auto) Lymph # (Auto) [place] # (Auto) Eos # (Auto) Baso # (Auto) Abs Immat Gran (auto) Absolute Neuts (auto) Absolute Nucleated RBC Nucleated RBC % (auto) Neutrophils % (Manual) Band Neutrophils % Lymphocytes % (Manual) Monocytes % (Manual) Eosinophils % (Manual) Basophils % (Manual) Metamyelocytes % Myelocytes % Abs Neuts (Manual) Lymphocytes # (Manual) Monocytes # (Manual) Eosinophils # (Manual) Basophils # (Manual) Metamyelocytes # Myelocytes # Platelet Estimate Plt Morphology Comment RBC Morphology Hypochromasia Anion Gap Estim Creat Clear Calc Estimated GFR Random Glucose Calcium Phosphorus Magnesium Total Bilirubin AST ALT Alkaline Phosphatase Total Protein Albumin TSH 01/22/25 01/22/25 01/22/25 06:44 06:44 06:44 MCV MCH MCHC RDW Plt Count MPV Immature Gran % (Auto) Neut % (Auto) Lymph % (Auto) Cancelled [place] % (Auto) Cancelled Cancelled Eos % (Auto) Cancelled Cancelled Baso % (Auto) Cancelled Lymph # (Auto) [place] # (Auto) Eos # (Auto) Baso # (Auto) Abs Immat Gran (auto) Absolute Neuts (auto) Absolute Nucleated RBC Nucleated RBC % (auto) Neutrophils % (Manual) Band Neutrophils % Lymphocytes % (Manual) Monocytes % (Manual) Eosinophils % (Manual) Basophils % (Manual) Metamyelocytes % Myelocytes % Abs Neuts (Manual) Lymphocytes # (Manual) Monocytes # (Manual) Eosinophils # (Manual) Basophils # (Manual) Metamyelocytes # Myelocytes # Platelet Estimate Plt Morphology Comment RBC Morphology Hypochromasia Anion Gap Estim Creat Clear Calc Estimated GFR Random Glucose Calcium Phosphorus Magnesium Total Bilirubin AST ALT Alkaline Phosphatase Total Protein Albumin TSH 01/22/25 01/22/25 01/22/25 06:44 06:44 06:44 MCV MCH MCHC RDW Plt Count MPV Immature Gran % (Auto) Neut % (Auto) Lymph % (Auto) [place] % (Auto) Eos % (Auto) Baso % (Auto) Cancelled Lymph # (Auto) Cancelled Cancelled [place] # (Auto) Cancelled Cancelled Eos # (Auto) Cancelled Baso # (Auto) Abs Immat Gran (auto) Absolute Neuts (auto) Absolute Nucleated RBC Nucleated RBC % (auto) Neutrophils % (Manual) Band Neutrophils % Lymphocytes % (Manual) Monocytes % (Manual) Eosinophils % (Manual) Basophils % (Manual) Metamyelocytes % Myelocytes % Abs Neuts (Manual) Lymphocytes # (Manual) Monocytes # (Manual) Eosinophils # (Manual) Basophils # (Manual) Metamyelocytes # Myelocytes # Platelet Estimate Plt Morphology Comment RBC Morphology Hypochromasia Anion Gap Estim Creat Clear Calc Estimated GFR Random Glucose Calcium Phosphorus Magnesium Total Bilirubin AST ALT Alkaline Phosphatase Total Protein Albumin TSH 01/22/25 01/22/25 01/22/25 06:44 06:44 06:44 MCV MCH MCHC RDW Plt Count MPV Immature Gran % (Auto) Neut % (Auto) Lymph % (Auto) [place] % (Auto) Eos % (Auto) Baso % (Auto) Lymph # (Auto) [place] # (Auto) Eos # (Auto) Cancelled Baso # (Auto) Cancelled Cancelled Abs Immat Gran (auto) Cancelled Cancelled Absolute Neuts (auto) Cancelled Absolute Nucleated RBC Nucleated RBC % (auto) Neutrophils % (Manual) Band Neutrophils % Lymphocytes % (Manual) Monocytes % (Manual) Eosinophils % (Manual) Basophils % (Manual) Metamyelocytes % Myelocytes % Abs Neuts (Manual) Lymphocytes # (Manual) Monocytes # (Manual) Eosinophils # (Manual) Basophils # (Manual) Metamyelocytes # Myelocytes # Platelet Estimate Plt Morphology Comment RBC Morphology Hypochromasia Anion Gap Estim Creat Clear Calc Estimated GFR Random Glucose Calcium Phosphorus Magnesium Total Bilirubin AST ALT Alkaline Phosphatase Total Protein Albumin TSH 01/22/25 01/22/25 01/22/25 06:44 06:44 06:44 MCV MCH MCHC RDW Plt Count MPV Immature Gran % (Auto) Neut % (Auto) Lymph % (Auto) [place] % (Auto) Eos % (Auto) Baso % (Auto) Lymph # (Auto) [place] # (Auto) Eos # (Auto) Baso # (Auto) Abs Immat Gran (auto) Absolute Neuts (auto) Cancelled Absolute Nucleated RBC 0.020 H Cancelled Nucleated RBC % (auto) 0.1 Cancelled Neutrophils % (Manual) 74 H Band Neutrophils % 5 Lymphocytes % (Manual) 5 L Monocytes % (Manual) 7 Eosinophils % (Manual) 3 Basophils % (Manual) 2 Metamyelocytes % 3 Myelocytes % 1 Abs Neuts (Manual) 18.1 H Lymphocytes # (Manual) 1.1 L Monocytes # (Manual) 1.6 H Eosinophils # (Manual) 0.7 H Basophils # (Manual) 0.5 H Metamyelocytes # 0.7 Myelocytes # 0.2 Platelet Estimate NORMAL Plt Morphology Comment NORMAL RBC Morphology NOTED Hypochromasia 1+ (5-14) Anion Gap 12 Estim Creat Clear Calc Estimated GFR Random Glucose Calcium Phosphorus Magnesium Total Bilirubin AST ALT Alkaline Phosphatase Total Protein Albumin TSH 01/22/25 01/22/25 01/22/25 06:44 06:44 06:44 MCV MCH MCHC RDW Plt Count MPV Immature Gran % (Auto) Neut % (Auto) Lymph % (Auto) [place] % (Auto) Eos % (Auto) Baso % (Auto) Lymph # (Auto) [place] # (Auto) Eos # (Auto) Baso # (Auto) Abs Immat Gran (auto) Absolute Neuts (auto) Absolute Nucleated RBC Nucleated RBC % (auto) Neutrophils % (Manual) Band Neutrophils % Lymphocytes % (Manual) Monocytes % (Manual) Eosinophils % (Manual) Basophils % (Manual) Metamyelocytes % Myelocytes % Abs Neuts (Manual) Lymphocytes # (Manual) Monocytes # (Manual) Eosinophils # (Manual) Basophils # (Manual) Metamyelocytes # Myelocytes # Platelet Estimate Plt Morphology Comment RBC Morphology Hypochromasia Anion Gap 10 L Estim Creat Clear Calc 77.9 79.1 Estimated GFR > 60 > 60 Random Glucose 109 Calcium Phosphorus Magnesium Total Bilirubin AST ALT Alkaline Phosphatase Total Protein Albumin TSH 01/22/25 01/22/25 06:44 06:44 MCV MCH MCHC RDW Plt Count MPV Immature Gran % (Auto) Neut % (Auto) Lymph % (Auto) [place] % (Auto) Eos % (Auto) Baso % (Auto) Lymph # (Auto) [place] # (Auto) Eos # (Auto) Baso # (Auto) Abs Immat Gran (auto) Absolute Neuts (auto) Absolute Nucleated RBC Nucleated RBC % (auto) Neutrophils % (Manual) Band Neutrophils % Lymphocytes % (Manual) Monocytes % (Manual) Eosinophils % (Manual) Basophils % (Manual) Metamyelocytes % Myelocytes % Abs Neuts (Manual) Lymphocytes # (Manual) Monocytes # (Manual) Eosinophils # (Manual) Basophils # (Manual) Metamyelocytes # Myelocytes # Platelet Estimate Plt Morphology Comment RBC Morphology Hypochromasia Anion Gap Estim Creat Clear Calc Estimated GFR Random Glucose 112 Calcium 8.1 L 8.1 L Phosphorus 3.4 Magnesium 1.8 Total Bilirubin 1.0 AST 30 ALT < 6 Alkaline Phosphatase 80 Total Protein 7.0 Albumin 2.5 L TSH 2.58 Microbiology Microbiology Results: Microbiology 01/21/25 12:33 Gram Stain - Final Incision Routine Culture - Preliminary Culture in progress. Anaerobic Culture - Preliminary Culture in progress. Assessment and Plan (1) Pulmonary edema: Status: Acute (2) Bacteremia: Status: Acute (3) Intra-abdominal abscess post-procedure: Status: Acute Plan 64-year-old lady with underlying history of diastolic dysfunction, CAD, IBS, recent subtotal colectomy and hernia repair at [facility] [place] on 01/07/2025 with ileostomy presented w 2 day history of worsening abdominal pain and hypotensive with poor response to initial IV fluid resuscitation requiring pressor support. On CT imaging patient with likely abdominal abscess with gas collection. Patient refused transfer to [facility] [place]. evaluated by surgical team with current plans for non operative management with antibiotics and close monitoring. Follow-up CT chest on 01/17/2025 with multiple intra-abdominal collections. blood cultures growing Fineglodia Magna. Pulmonary edema and effusion 2/2 acute on chronic diastolic CHF exacerbation From fluid resuscitation Continue IV Lasix I\O wean O2 down as tolerated voiding trial PT eval Intra abdominal Abscesses with Fineglogia Magna Bactremia and worsening Leukocytosis Surgery team following ; non operative approach now Covered with Zosyn , added Flagyl Repeat CT as needed Stoma functioning, tolerating clears on PPN DI eval - ? significant of fineglofgia Acute on chronic anemia Improved after PRBCs transfusion monitor H&H no bleeding reported Hx CAD Carvedilol, Losartan as BP tolerate Hold HCT for now DVT PPx Heparin SC Quality Stroke Does the patient have a stroke diagnosis?: No VTE Prior VTE?: No VTE Risk Level:: Medical - moderate - high VTE Device Contraindication: N/A - Device Ordered VTE Drug Contraindication: N/A - Med Ordered
[2025-01-22] MEDS: Amiodarone HCL 900 MG in 0.9 % Sodium Chloride 500 ML 17.27 MG IVCONT (12:28)
[2025-01-22] MEDS: diazePAM 10 MG/2 ML CARTRIDGE 5 MG IVPUSH (12:30)
[2025-01-22] MEDS: ondansetron HCL 4 MG/2 ML VIAL IVPUSH (12:31)
--- NOTE | 2025-01-22 12:40 | MHC.CM.PN ---
per rounds, pt. still acute, requiring care of pulmonary edema, and abdominal anscess. DCP: home with services, update sent to [facility].
--- NOTE | 2025-01-22 15:33 | PM.EVENT ---
Event Note Date of Service: 01/22/25 Event Note: Seen on afternoon rounds Was able to sit on recliner for several hours She says that her breathing is much better today Stoma continues to function Abdomen remained soft and benign No fever Encouraged to take bites of regular food - she says she has no appetite TPN IV antibiotics seems to be more comfortable today Time Spent With Patient Time: Total time managing care of this patient today ____ minutes.
--- NOTE | 2025-01-22 17:47 | P.CNID_ITS ---
History of Present Illness Data of Consult Service Date: 01/20/25 Requesting physician: Gideon Ruvalcaba Primary Care Provider: Joi Rebollar MD HPI Reason for consult: abdominal abscess She presents with nausea ,vomiting and 6/10 abdominal pain. She has had perforated sigmoid diverticulitis in past and now [place]otal colect[place] [facility] [place] has abscess concern in abdomen. Review of Systems 2 Review of Systems: Yes all other systems are reviewed and are negative [facility] Past Medical History Medical History Insomnia Bilateral knee pain Polyarthralgia MARKIE (acute kidney injury) Back pain Arthritis History of transfusion of packed red blood cells Anemia Cardiomyopathy MARKIE (acute kidney injury) MARKIE (acute kidney injury) Anxiety Small bowel obstruction Myocardial infarction NSTEMI (non-ST elevated myocardial infarction) NSVT (nonsustained ventricular tachycardia) PVC (premature ventricular contraction) Hypertension Perforated diverticulum Irritable bowel syndrome with constipation Barretts esophagus GERD (gastroesophageal reflux disease) Family History Family History Father Colon cancer Congestive heart failure Paternal Aunt Colon cancer Mother Congestive heart failure Afib Family history: reviewed and not pertinent Surgical History Surgical History S/P colon resection PIC line (peripherally inserted central catheter) removal History of low anterior resection of rectum Status post cardiac catheterization Ileostomy in place H/O dilation and curettage History of exploratory laparotomy (05/11/23) S/P colostomy Colovesical fistula History of esophagogastroduodenoscopy (EGD) Hx of colonoscopy Social History Social History Household Members: None Housing: House Are you a primary medicare sales executive to a significant other at home: No Do you presently have visiting nurse or other home services: Yes ([facility]) Alcohol intake: never Comment: located near nursing station Patient Tobacco Use Status: Former Tobacco user Tobacco use type: Cigarette Cigarette Packs Per Day: 0.5 Cigarettes Per Day: 10.0 Years Smoked: 25 Smoked in Last 30 Days: No e-Cigarette/Vaping Use: Former Use Patient Interested in Nicotine Replacement: No Patient Given Instructions on How to Stop Smoking: No Second Hand Smoke Exposure: No Substance Use Type: Marijuana Currently Displaying Signs/Symptoms of Drug Intoxication Withdrawal: No Have you been hit, kicked, punched, or otherwise hurt by someone within the past year? If so, by whom?: No Do you feel safe in your current relationship?: No Current Relationship Is there a partner from a previous relationship who is making you feel unsafe now?: No Are you made to feel afraid or neglected: No Spiritual Healthcare Practices: none Advance Directives: Yes Advance Directives Information Provided: No Advance Directives on File: Yes Advance Directives Date on File: 12/29/23 Do you have a plan to hurt others: No Plan Recently lost weight without trying: No Eating poorly because of decreased appetite: Yes Nutrition Risks: Acute nausea or vomiting x1 week Patient : No : No Poor oral hygiene: No service: No Cognitive needs: No Hearing needs: No Vision needs: Yes Meds Allergies Allergy/AdvReac Type Severity Reaction Status Date / Time clams Allergy Severe Stomach Verified 01/15/25 09:33 Upset clavulanic acid [Augmentin] Allergy Unknown GI, Verified 01/15/25 09:33 Difficulty breathing codeine [CODEINE] Allergy Unknown SENSITIVIT Verified 01/15/25 09:33 Y erythromycin base Allergy Unknown GI, DIFF Verified 01/15/25 09:33 [Erythromycin Base] BREATHING Sulfa (Sulfonamide Allergy Unknown RASH Verified 01/15/25 09:33 Antibiotics) morphine [MORPHINE] AdvReac Severe NAUSEA Verified 01/15/25 09:33 aspirin [Aspirin] AdvReac Mild STOMACH Verified 01/15/25 09:33 UPSET melatonin AdvReac Vomiting Verified 01/15/25 09:33 Active Medications: Current Medications Acetaminophen (Acetaminophen 325 Mg Tablet) 975 mg PO Q6H PRN PRN Reason: Pain, Mild 1-3,fever,headache Diazepam (Diazepam 10 Mg/2 Ml Cartridge) 5 mg IVPUSH Q6H PRN PRN Reason: Anxiety Last Admin: 01/22/25 12:30 Dose: 5 mg Furosemide (Furosemide 40 Mg/4 Ml Vial) 40 mg IVPUSH DAILY [facility]; Protocol Last Admin: 01/22/25 07:54 Dose: 40 mg Heparin Sodium (Porcine) (Heparin Sodium,Porcine 5,000 Unit/Ml Vial) 5,000 unit SUBCUT Q8H [facility] Last Admin: 01/22/25 12:33 Dose: 5,000 unit Hydromorphone HCl (Hydromorphone Hcl 2 Mg/Ml Vial) 2 mg IVPUSH Q2H PRN; Protocol PRN Reason: Pain, Severe (Pain Scale 7-10) Last Admin: 01/22/25 15:54 Dose: 2 mg Piperacillin Sod/Tazobactam (Sod 3.375 gm/ Sodium Chloride) 50 mls @ 100 mls/hr IV Q6H [facility] Last Infusion: 01/22/25 15:40 Dose: Infused Metronidazole (Flagyl) 500 mg in 100 mls @ 100 mls/hr IV Q8H [facility] Last Infusion: 01/22/25 17:15 Dose: Infused Nutrition (Parenteral) (Parenteral Nutrition) 1,680 mls @ 70 mls/hr IV .Q24H [facility]; Protocol Stop: 01/22/25 20:59 Last Admin: 01/21/25 20:34 Dose: 70 mls/hr Amiodarone HCl 900 mg/ Sodium (Chloride) 518 mls @ 34.533 mls/hr IVCONT .Q15H1M [facility]; Protocol Last Admin: 01/22/25 12:28 Dose: 0.5 mg/min, 17.27 mls/hr Nutrition (Parenteral) (Parenteral Nutrition) 1,680 mls @ 70 mls/hr IV .Q24H [facility]; Protocol Stop: 01/23/25 20:59 Mirtazapine (Mirtazapine 15 Mg Tablet) 15 mg PO BEDTIME [facility] Last Admin: 01/21/25 19:41 Dose: 15 mg Ondansetron HCl (Ondansetron Hcl 4 Mg/2 Ml Vial) 4 mg IVPUSH Q4H PRN PRN Reason: Nausea and Vomiting Last Admin: 01/22/25 12:31 Dose: 4 mg Pantoprazole Sodium (Pantoprazole Sodium 40 Mg/10 Ml Vial) 40 mg IVPUSH BID@0630,1630 [facility] Last Admin: 01/22/25 15:08 Dose: 40 mg Pharmacy Consult (Consult Rx Parenteral Nutrition Ordering) 1 each MISCELLANE DAILY PRN PRN Reason: Consult order Home Medications ?Medication ?Instructions ?Recorded ?Confirmed ?Last Taken ?Type calcium 600 mg (as 1 tab PO DAILY 11/30/23 01/15/25 03/19/24 09:00 History carbonate)-vitamin D3 5 mcg (200 unit) tablet (Calcium 600 + D(3)) mirtazapine 15 mg tablet 15 mg PO BEDTIME 11/30/23 01/15/25 03/19/24 09:00 History acetaminophen 325 mg tablet 650 mg PO Q12H PRN Pain 01/07/24 01/15/25 03/19/24 09:00 History (Tylenol) multivitamin with minerals-folic 1 tab PO DAILY 01/07/24 01/15/25 03/19/24 09:00 History acid 200 mcg chewable tablet (Multivitamin Gummies) carisoprodol 350 mg tablet 350 mg PO BEDTIME 03/19/24 01/15/25 03/19/24 09:00 History magnesium glycinate 800 mg PO DAILY 03/19/24 01/15/25 03/19/24 09:00 History B-complex with vitamin C 1 tab PO DAILY 01/15/25 01/15/25 Unknown History fluticasone propionate 50 1 spray intranasal DAILY 01/15/25 01/15/25 Unknown History mcg/actuation nasal spray,suspension hydrochlorothiazide 25 mg tablet 25 mg PO DAILY 01/15/25 01/15/25 Unknown History hydromorphone 2 mg tablet 2 - 4 mg PO Q3H PRN pain 01/15/25 01/15/25 Unknown History ibuprofen 200 mg tablet 400 mg PO Q6H PRN Pain 01/15/25 01/15/25 Unknown History losartan 25 mg tablet 25 mg PO DAILY 01/15/25 01/15/25 Unknown History ondansetron 4 mg disintegrating 4 mg PO Q8H PRN Nausea And Vomiting 01/15/25 01/15/25 Unknown History tablet potassium chloride 10 mEq 10 meq PO DAILY 01/15/25 01/15/25 Unknown History tablet,extended release Physical Exam 2 Vital Signs: Vital Signs: Last Vital Signs Temp 97.9 F 01/22/25 15:26 Pulse 91 01/22/25 15:30 Resp 16 01/22/25 15:26 BP 132/63 01/22/25 15:26 Pulse Ox 103 H 01/22/25 15:30 O2 Del Method Nasal Cannula 01/22/25 15:26 O2 Flow Rate 2 01/22/25 15:26 BMI result Body Mass Index 30.9 Const: General: cooperative HEENT: Head: Yes normal to inspection Face and sinus: Yes normal facial exam Mouth: Normal oral and palatal mucosa present Teeth and gingiva: d entition normal Eyes: General: appearance normal, both eyes and all related structures P upils: Equal, round and reactive pupils present Resp: Effort & Inspection: normal respiratory effort Cardio: Rate: regular rate Rhythm: regular rhythm GI: Other: ileostomy Palpation (GI): Soft to palpation and nontender : General: Yes no CVA tenderness Back/Spine/Pelvis: Back: no CVA tenderness Skin: General skin exam: no rashes or lesions noted Neuro: General: moves all extremities Cranial nerves: Yes Equal, round and reactive pupils present Extrem: General: Yes normal to inspection Psych: Appearance: grossly normal Results Labs 01/22/25 06:44 01/22/25 06:44 Labs: Short CBC 01/22/25 01/22/25 01/22/25 Range/Units 06:44 06:44 06:44 WBC 22.9 H Cancelled (4.8-10.8) X10*3/uL Hgb 8.5 L Cancelled (12.0-16.0) g/dl Hct 27.0 L (37.0-47.0) % Plt Count (160-400) X10*3/uL 01/22/25 01/22/25 Range/Units 06:44 06:44 WBC (4.8-10.8) X10*3/uL Hgb (12.0-16.0) g/dl Hct Cancelled (37.0-47.0) % Plt Count 172 Cancelled (160-400) X10*3/uL BMP 01/22/25 01/22/25 01/22/25 06:44 06:44 06:44 Sodium 137 135 Potassium 4.1 4.1 Chloride 101 Carbon Dioxide BUN Creatinine Calcium 01/22/25 01/22/25 01/22/25 06:44 06:44 06:44 Sodium Potassium Chloride 102 Carbon Dioxide 28 27 BUN 28 H 28 H Creatinine 0.69 Calcium 01/22/25 01/22/25 06:44 06:44 Sodium Potassium Chloride Carbon Dioxide BUN Creatinine 0.68 Calcium 8.1 L 8.1 L Liver Function 01/22/25 Range/Units 06:44 Total Bilirubin 1.0 (0.0-1.0) mg/dL AST 30 (5-31) U/L ALT < 6 (0-31) U/L Alkaline Phosphatase 80 (39-117) U/L Albumin 2.5 L (3.5-5.0) g/dL Microbiology Microbiology Results: Microbiology 01/21/25 12:33 Incision Gram Stain - Final 01/21/25 12:33 Incision Routine Culture - Preliminary Culture in progress. 01/21/25 12:33 Incision Anaerobic Culture - Preliminary Culture in progress. 01/15/25 10:01 Blood - Venous Blood Culture - Final No growth after 5 days. 01/17/25 20:11 Blood - Venous Blood Culture - Preliminary No growth after 48 hours. 01/17/25 20:11 Blood - Venous Blood Culture - Preliminary No growth after 48 hours. 01/15/25 09:58 Blood - Venous Blood Culture - Final Finegoldia magna Assessment and Plan (1) Septic shock: Status: Acute (2) Intra-abdominal abscess post-procedure: Status: Acute Plan Continue Zosyn Await final cultures Duration to be determined. Follow Surgery.
[2025-01-22] MEDS: Parenteral Nutrition 1,680 ML 70 ML IV (20:22)
[2025-01-22] MEDS: Mirtazapine 15 MG TABLET PO (20:29)
[2025-01-23] VITALS (7 sets, daily range): BP systolic 104–142; BP diastolic 58–81; PULSE 80–148; RESP 16–20; TEMP 36.1–36.7; O2SAT 94–98
--- NOTE | 2025-01-23 | ECG_ITS ---
Test Reason : increase HR Blood Pressure : */* mmHG Vent. Rate : 128 BPM Atrial Rate : * BPM P-R Int : * ms QRS Dur : 68 ms QT Int : 262 ms P-R-T Axes : * 57 84 degrees QTcB Int : 382 ms Atrial fibrillation with rapid ventricular response Low voltage QRS Nonspecific ST and T wave abnormality Abnormal ECG When compared with ECG of 21-Jan-2025 19:34, Atrial fibrillation has replaced Atrial flutter Nonspecific T wave abnormality has replaced inverted T waves in Anterior leads Referred By: Noa Garcias Electronically Signed By: Russell Hummel
[2025-01-23] MEDS: HYDROmorphone HCl 2 MG/ML VIAL IVPUSH ×8 (01:37→23:05)
[2025-01-23] MEDS: metroNIDAZOLE/NS 500 MG/100 ML PIGGYBACK 100 MG IV ×4 (01:40→23:05)
[2025-01-23] MEDS: Amiodarone HCL 900 MG in 0.9 % Sodium Chloride 500 ML 17.27 MG IVCONT ×2 (01:49→11:18)
[2025-01-23] MEDS: Piperacillin Sodium/Tazobactam 3.375 GM in 0.9 % Sodium Chloride 50 ML IV ×4 (04:29→22:06)
[2025-01-23 06:31] LABS: Hemoglobin 8.9 g/dl (12.0-16.0); Mean Corpuscular HGB Conc 31.8 g/dl (31.0-35.0); Mean Corpuscular Hemoglobin 29.1 pg (27.0-33.0); Mean Corpuscular Volume 91.5 fL (80.0-98.0); Mean Platelet Volume 10.7 fL (9.4-12.3); Platelet Count 231 X10*3/uL (160-400); Red Blood Count 3.06 X10*6/uL (4.20-5.50); Red Cell Distribution Width 14.7 % (11.0-16.0)
[2025-01-23] MEDS: Pantoprazole Sodium 40 MG/10 ML VIAL IVPUSH (06:37)
[2025-01-23] MEDS: Heparin Sodium,Porcine 5,000 UNIT/ML VIAL 5000 UNIT SUBCUT ×3 (06:39→22:06)
[2025-01-23 06:55] LABS: Alanine Aminotransferase < 6 U/L (0-31); Albumin Level 2.5 g/dL (3.5-5.0); Alkaline Phosphatase 94 U/L (39-117); Anion Gap 12 (12-20); Aspartate Amino Transferase 28 U/L (5-31); Blood Urea Nitrogen 30 mg/dL (9-16); Calcium 8.1 mg/dL (8.4-10.2); Carbon Dioxide 26 mmol/L (22-29); Chloride 101 mmol/L (96-108); Creatinine Clr Calc Pharmacy 81.4; Estimated Glomerular Filt Rate > 60; Glucose Random 102 mg/dL (60-115); Magnesium 1.8 mg/dL (1.6-2.6); Phosphorus 2.8 mg/dL (2.7-4.5); Potassium 3.9 mmol/L (3.3-5.1); Sodium 135 mmol/L (135-145); Total Protein 7.2 g/dL (6.5-8.0)
--- NOTE | 2025-01-23 08:25 | PM.PNGS ---
Subjective Subjective Date of Service: 01/23/25 <Gabi Victoria PA-C - Last Filed: 01/23/25 08:29> 01/24/25 <Gideon Ruvalcaba MD - Last Filed: 01/24/25 09:27> Interval history: Erwin removed yesterday. Continues to feel short of breath, worsens with ambulation. <Gabi Victoria PA-C - Last Filed: 01/23/25 08:29> Physical Exam Vital Signs: Vital Signs: Last Vital Signs Temp 97.8 F 01/23/25 07:09 Pulse 138 H 01/23/25 07:09 Resp 18 01/23/25 07:09 BP 123/64 01/23/25 07:09 Pulse Ox 94 01/23/25 07:09 O2 Del Method Nasal Cannula 01/23/25 07:09 O2 Flow Rate 2 01/23/25 07:09 BMI result Body Mass Index 30.9 <Gabi Victoria PA-C - Last Filed: 01/23/25 08:29> Const: General: alert <Gabi Victoria PA-C - Last Filed: 01/23/25 08:29> Orientation/consciousness: patient oriented x3 <STAN Wilder Last Filed: 01/23/25 08:29> Resp: Other: increased work of breath at rest <Gabi Victoria PA-C - Last Filed: 01/23/25 08:29> Effort & Inspection: able to speak in complete sentences <Gabi Victoria PA-C - Last Filed: 01/23/25 08:29> GI: Other: incision with thin seropurulent drainage from inferior aspect, no surrounding erythema ostomy pink, scant output <Gabi Victoria PA-C - Last Filed: 01/23/25 08:29> Palpation (GI): Soft to palpation and nontender <STAN Wilder Last Filed: 01/23/25 08:29> Neuro: General: patient oriented x3 and moves all extremities <STAN Wilder Last Filed: 01/23/25 08:29> Objective Data Active Medications Acetaminophen (Acetaminophen 325 Mg Tablet) 975 mg PO Q6H PRN PRN Reason: Pain, Mild 1-3,fever,headache Diazepam (Diazepam 10 Mg/2 Ml Cartridge) 5 mg IVPUSH Q6H PRN PRN Reason: Anxiety Last Admin: 01/22/25 12:30 Dose: 5 mg Documented By: BAKARI Furosemide (Furosemide 40 Mg/4 Ml Vial) 40 mg IVPUSH DAILY [facility]; Protocol Last Admin: 01/22/25 07:54 Dose: 40 mg Documented By: BAKARI Heparin Sodium (Porcine) (Heparin Sodium,Porcine 5,000 Unit/Ml Vial) 5,000 unit SUBCUT Q8H [facility] Last Admin: 01/23/25 06:39 Dose: 5,000 unit Documented By: CARLY Hydromorphone HCl (Hydromorphone Hcl 2 Mg/Ml Vial) 2 mg IVPUSH Q2H PRN; Protocol PRN Reason: Pain, Severe (Pain Scale 7-10) Last Admin: 01/23/25 06:33 Dose: 2 mg Documented By: CARLY Piperacillin Sod/Tazobactam (Sod 3.375 gm/ Sodium Chloride) 50 mls @ 100 mls/hr IV Q6H [facility] Last Infusion: 01/23/25 06:00 Dose: Infused Documented By: CARLY Metronidazole (Flagyl) 500 mg in 100 mls @ 100 mls/hr IV Q8H [facility] Last Infusion: 01/23/25 02:41 Dose: Infused Documented By: CARLY Amiodarone HCl 900 mg/ Sodium (Chloride) 518 mls @ 34.533 mls/hr IVCONT .Q15H1M [facility]; Protocol Last Admin: 01/23/25 01:49 Dose: 0.5 mg/min, 17.27 mls/hr Documented By: CARLY Nutrition (Parenteral) (Parenteral Nutrition) 1,680 mls @ 70 mls/hr IV .Q24H [facility]; Protocol Stop: 01/23/25 20:59 Last Admin: 01/22/25 20:22 Dose: 70 mls/hr Documented By: CARLY Nutrition (Parenteral) (Parenteral Nutrition) 1,680 mls @ 70 mls/hr IV .Q24H [facility]; Protocol Stop: 01/24/25 20:59 Mirtazapine (Mirtazapine 15 Mg Tablet) 15 mg PO BEDTIME [facility] Last Admin: 01/22/25 20:29 Dose: 15 mg Documented By: CARLY Ondansetron HCl (Ondansetron Hcl 4 Mg/2 Ml Vial) 4 mg IVPUSH Q4H PRN PRN Reason: Nausea and Vomiting Last Admin: 01/22/25 12:31 Dose: 4 mg Documented By: BAKARI Pantoprazole Sodium (Pantoprazole Sodium 40 Mg/10 Ml Vial) 40 mg IVPUSH BID@0630,1630 [facility] Last Admin: 01/23/25 06:37 Dose: 40 mg Documented By: CARLY Pharmacy Consult (Consult Rx Parenteral Nutrition Ordering) 1 each MISCELLANE DAILY PRN PRN Reason: Consult order <Gabi Victoria PA-C - Last Filed: 01/23/25 08:29> Labs CBC & Chem 7: 01/23/25 06:08 01/24/25 06:51 <Gabi Victoria PA-C - Last Filed: 01/23/25 08:29> Labs: Laboratory Results - last 24 hr 01/23/25 06:08 MCV 91.5 MCH 29.1 MCHC 31.8 RDW 14.7 Plt Count 231 D MPV 10.7 Absolute Nucleated RBC 0.000 Nucleated RBC % (auto) 0.0 Anion Gap 12 Estim Creat Clear Calc 81.4 Estimated GFR > 60 Random Glucose 102 Calcium 8.1 L Phosphorus 2.8 Magnesium 1.8 Total Bilirubin 1.0 AST 28 ALT < 6 Alkaline Phosphatase 94 Total Protein 7.2 Albumin 2.5 L <STAN Wilder Last Filed: 01/23/25 08:29> Microbiology Microbiology Results: Microbiology 01/21/25 12:33 Gram Stain - Final Incision Routine Culture - Preliminary Gram negative antoni Anaerobic Culture - Preliminary Culture in progress. 01/17/25 20:11 Blood Culture - Final Blood - Venous No growth after 5 days. 01/17/25 20:11 Blood Culture - Final Blood - Venous No growth after 5 days. <STAN Wilder Last Filed: 01/23/25 08:29> Procedures Date of Service Date of Service: 01/23/25 <Gabi Victoria PA-C - Last Filed: 01/23/25 08:29> 01/24/25 <Gideon Ruvalcaba MD - Last Filed: 01/24/25 09:27> Progress Note: A&P Assessment and plan (1) Intra-abdominal abscess post-procedure: Status: Acute <Gabi Victoria PA-C - Last Filed: 01/23/25 08:29> Assessment and Plan: Says she is ?okay? No fever overnight However WBC still trending up Abdomen is soft and benign Ileostomy functioning Still waiting for follow-up CAT scan Seen and examined independently Encouraged patient to take some p.o. TPN <Gideon Ruvalcaba MD - Last Filed: 01/24/25 09:27> Assessment and Plan: Interloop abscesses noted after subtotal colectomy, ileostomy in [place], nonoperative management being attempted. On IV zosyn and flagyl. WBC unfortunately continues to trend up. Continues with drainage from abd incision, likely abd source- culture shows GNR. Abdomen is soft and benign. Will order f/u CT scan to reassess. May need transfer [place] [facility] [place] Hospitalist following. Cardiology following for atrial fibrillation. Cont TPN. diet as tolerated. <Gabi Victoria PA-C - Last Filed: 01/23/25 08:29> Time Spent With Patient Time: Total time managing care of this patient today ____ minutes. <Gabi Victoria PA-C - Last Filed: 01/23/25 08:29> Quality Stroke Does the patient have a stroke diagnosis?: No <Gabi Victoria PA-C - Last Filed: 01/23/25 08:29> VTE Prior VTE?: No <Gabi Victoria PA-C - Last Filed: 01/23/25 08:29> VTE Risk Level:: Medical - moderate - high <STAN Wilder Last Filed: 01/23/25 08:29> VTE Device Contraindication: N/A - Device Ordered <Gabi Victoria PA-C - Last Filed: 01/23/25 08:29> VTE Drug Contraindication: N/A - Med Ordered <STAN Wilder Last Filed: 01/23/25 08:29>
[2025-01-23] MEDS: Furosemide 40 MG/4 ML VIAL IVPUSH (09:06)
--- NOTE | 2025-01-23 09:52 | HO.PM.IMPN ---
Subjective Subjective Date of Service: 01/23/25 Interval History: back in afib bladder spasms improved with removal of perez weak, sob Physical Exam Vital Signs: Vital Signs: Last Vital Signs Temp 97.8 F 01/23/25 07:09 Pulse 138 H 01/23/25 07:09 Resp 18 01/23/25 07:09 BP 123/64 01/23/25 09:06 Pulse Ox 94 01/23/25 07:09 O2 Del Method Nasal Cannula 01/23/25 07:09 O2 Flow Rate 2 01/23/25 07:09 BMI result Body Mass Index 30.9 Const: General: alert Orientation/consciousness: patient oriented x3 Resp: Other: increased work of breath at rest Effort & Inspection: able to speak in complete sentences GI: Other: incision with thin seropurulent drainage from inferior aspect, no surrounding erythema ostomy pink, scant output Palpation (GI): Soft to palpation and nontender Neuro: General: patient oriented x3 and moves all extremities Objective Data Active Medications Acetaminophen (Acetaminophen 325 Mg Tablet) 975 mg PO Q6H PRN PRN Reason: Pain, Mild 1-3,fever,headache Diazepam (Diazepam 10 Mg/2 Ml Cartridge) 5 mg IVPUSH Q6H PRN PRN Reason: Anxiety Last Admin: 01/22/25 12:30 Dose: 5 mg Documented By: BAKARI Furosemide (Furosemide 40 Mg/4 Ml Vial) 40 mg IVPUSH DAILY [facility]; Protocol Last Admin: 01/23/25 09:06 Dose: 40 mg Documented By: FAUSTINA Heparin Sodium (Porcine) (Heparin Sodium,Porcine 5,000 Unit/Ml Vial) 5,000 unit SUBCUT Q8H [facility] Last Admin: 01/23/25 06:39 Dose: 5,000 unit Documented By: CARLY Hydromorphone HCl (Hydromorphone Hcl 2 Mg/Ml Vial) 2 mg IVPUSH Q2H PRN; Protocol PRN Reason: Pain, Severe (Pain Scale 7-10) Last Admin: 01/23/25 09:06 Dose: 2 mg Documented By: FAUSTINA Piperacillin Sod/Tazobactam (Sod 3.375 gm/ Sodium Chloride) 50 mls @ 100 mls/hr IV Q6H [facility] Last Admin: 01/23/25 09:06 Dose: 100 mls/hr Documented By: FAUSTINA Metronidazole (Flagyl) 500 mg in 100 mls @ 100 mls/hr IV Q8H [facility] Last Admin: 01/23/25 09:06 Dose: 100 mls/hr Documented By: FAUSTINA Amiodarone HCl 900 mg/ Sodium (Chloride) 518 mls @ 34.533 mls/hr IVCONT .Q15H1M [facility]; Protocol Last Admin: 01/23/25 01:49 Dose: 0.5 mg/min, 17.27 mls/hr Documented By: CARLY Nutrition (Parenteral) (Parenteral Nutrition) 1,680 mls @ 70 mls/hr IV .Q24H [facility]; Protocol Stop: 01/23/25 20:59 Last Admin: 01/22/25 20:22 Dose: 70 mls/hr Documented By: CARLY Nutrition (Parenteral) (Parenteral Nutrition) 1,680 mls @ 70 mls/hr IV .Q24H [facility]; Protocol Stop: 01/24/25 20:59 Mirtazapine (Mirtazapine 15 Mg Tablet) 15 mg PO BEDTIME [facility] Last Admin: 01/22/25 20:29 Dose: 15 mg Documented By: CARLY Ondansetron HCl (Ondansetron Hcl 4 Mg/2 Ml Vial) 4 mg IVPUSH Q4H PRN PRN Reason: Nausea and Vomiting Last Admin: 01/22/25 12:31 Dose: 4 mg Documented By: BAKARI Pantoprazole Sodium (Pantoprazole Sodium 40 Mg/10 Ml Vial) 40 mg IVPUSH BID@0630,1630 [facility] Last Admin: 01/23/25 06:37 Dose: 40 mg Documented By: CARLY Pharmacy Consult (Consult Rx Parenteral Nutrition Ordering) 1 each MISCELLANE DAILY PRN PRN Reason: Consult order Labs 01/23/25 06:08 01/23/25 06:08 Labs: Laboratory Results - last 24 hr 01/23/25 06:08 MCV 91.5 MCH 29.1 MCHC 31.8 RDW 14.7 Plt Count 231 D MPV 10.7 Absolute Nucleated RBC 0.000 Nucleated RBC % (auto) 0.0 Anion Gap 12 Estim Creat Clear Calc 81.4 Estimated GFR > 60 Random Glucose 102 Calcium 8.1 L Phosphorus 2.8 Magnesium 1.8 Total Bilirubin 1.0 AST 28 ALT < 6 Alkaline Phosphatase 94 Total Protein 7.2 Albumin 2.5 L Microbiology Microbiology Results: Microbiology 01/21/25 12:33 Gram Stain - Final Incision Routine Culture - Preliminary Gram negative antoni Anaerobic Culture - Preliminary Culture in progress. 01/17/25 20:11 Blood Culture - Final Blood - Venous No growth after 5 days. 01/17/25 20:11 Blood Culture - Final Blood - Venous No growth after 5 days. Assessment and Plan (1) Pulmonary edema: Status: Acute (2) Bacteremia: Status: Acute (3) Intra-abdominal abscess post-procedure: Status: Acute Plan 64-year-old lady with underlying history of diastolic dysfunction, CAD, IBS, recent subtotal [place] [facility] [place] with ileostomy presented w 2 day history of worsening abdominal pain and hypotensive with poor response to initial IV fluid resuscitation requiring pressor support. On CT imaging patient with likely abdominal abscess with gas collection. Patient refused [place] [facility] evaluated by surgical team with current plans for non operative management with antibiotics and close monitoring. Follow-up CT chest on 01/17/2025 with multiple intra-abdominal collections. blood cultures growing Fineglodia Magna. acute hypoxic respiratory failure due to Pulmonary edema and effusion 2/2 acute on chronic diastolic CHF exacerbation From fluid resuscitation Continue IV Lasix I\O wean O2 down as tolerated voiding trial PT eval new onset afib with rvr on amio drip, initially went into sinus, now back in afib cardio following Intra abdominal Abscesses with Fineglogia Magna Bactremia and worsening Leukocytosis Surgery team following ; non operative approach now Covered with Zosyn , added Flagyl on PPN DI eval - follwoing Acute on chronic anemia Improved after PRBCs transfusion monitor H&H no bleeding reported Hx CAD Carvedilol, Losartan as BP tolerate Hold HCT for now DVT PPx Heparin SC Quality Stroke Does the patient have a stroke diagnosis?: No VTE Prior VTE?: No VTE Risk Level:: Medical - moderate - high VTE Device Contraindication: N/A - Device Ordered VTE Drug Contraindication: N/A - Med Ordered
[2025-01-23] MEDS: Amiodarone/Dextrose 150 MG/100 ML PLAST..BAG 600 MG IV (13:01)
[2025-01-23] MEDS: Amiodarone HCL 900 MG in 0.9 % Sodium Chloride 500 ML 34.53 MG IVCONT (13:32)
--- NOTE | 2025-01-23 14:02 | PM.PNCARD ---
Subjective Subjective Date of Service: 01/23/25 Interval history: Seen examined at bedside. She is in atrial flutter 150 beats per minute Physical Exam Vital Signs: Last Vital Signs Temp 97.9 F 01/23/25 11:07 Pulse 148 H 01/23/25 11:07 Resp 20 01/23/25 11:07 BP 142/67 H 01/23/25 11:07 Pulse Ox 96 01/23/25 11:07 O2 Del Method Room Air 01/23/25 11:07 O2 Flow Rate 2 01/23/25 11:07 BMI result Body Mass Index 30.9 GENERAL APPEARANCE: Distressed emotionally. Complaining of abdominal pain. NECK: no carotid bruit, no jugular venous distention. SKIN: no suspicious lesions, warm and dry. HEART: no murmurs, regular rate and rhythm. Tachycardic. LUNGS: clear to auscultation bilaterally. ABDOMEN: soft, right abdominal wall ileostomy with back. Midline wound which is currently dressed. EXTREMITIES: no edema. PERIPHERAL PULSES: equal. NEUROLOGIC: No gross deficits, AAO X 3 Objective Labs and Meds 01/23/25 06:08 01/23/25 06:08 Lab results: Laboratory Results - last 24 hr 01/23/25 06:08 WBC 27.0 H RBC 3.06 L Hgb 8.9 L Hct 28.0 L MCV 91.5 MCH 29.1 MCHC 31.8 RDW 14.7 Plt Count 231 D MPV 10.7 Absolute Nucleated RBC 0.000 Nucleated RBC % (auto) 0.0 Sodium 135 Potassium 3.9 Chloride 101 Carbon Dioxide 26 Anion Gap 12 BUN 30 H Creatinine 0.66 Estim Creat Clear Calc 81.4 Estimated GFR > 60 Random Glucose 102 Calcium 8.1 L Phosphorus 2.8 Magnesium 1.8 Total Bilirubin 1.0 AST 28 ALT < 6 Alkaline Phosphatase 94 Total Protein 7.2 Albumin 2.5 L Progress Note: A&P Assessment and plan (1) Atrial flutter: Status: Acute (2) Pulmonary edema: Status: Acute Plan [age] year female with complex abdominal surgeries currently presenting with abdominal abscess and sepsis. She had heart failure episode in this setting and also developed atrial flutter. She is currently on amiodarone. Bolus her with amiodarone 150 mg and increase the maintenance drip to 1 milligram/minute. Continue diuretics as before. Currently does not appear to be volume overloaded and would continue the same dose of diuretics. If she does not convert with this strategy then low-dose IV metoprolol can be tried to slow the heart rate. We will follow along with you. Thank you for allowing me to participate in the care of your patient. Please feel free to contact me if you have any questions. Time Spent With Patient Time: Total time managing care of this patient today ____ minutes. Progress Note: Quality Stroke Does the patient have a stroke diagnosis?: No Procedures Date of Service Date of Service: 01/23/25
[2025-01-23] MEDS: iohexoL 350 MG/ML 100 ML INFUS..BTL IV (14:11)
--- NOTE | 2025-01-23 15:25 | PM.EVENT ---
Event Note Date of Service: 01/24/25 Event Note: Seen on afternoon rounds Says she is ?okay? CAT scan reviewed -new right lateral abdominal collection all the way to the liver; also previous mid abdominal and pelvic collections; pleural effusion in the left I have consulted IR for CT drain if possible IV antibiotics She says she is comfortable currently Stoma continues to function Time Spent With Patient Time: Total time managing care of this patient today ____ minutes.
--- NOTE | 2025-01-23 19:35 | PC.NURSE ---
amiodarone gtt decreased per protocol
[2025-01-23] MEDS: Mirtazapine 15 MG TABLET PO (20:02)
[2025-01-23] MEDS: Parenteral Nutrition 1,680 ML 70 ML IV (22:05)
[2025-01-24] VITALS (14 sets, daily range): BP systolic 106–145; BP diastolic 60–73; PULSE 77–92; RESP 16–20; TEMP 36.1–36.9; O2SAT 94–98
--- NOTE | 2025-01-24 02:30 | PC.NURSE ---
patient on amiodarone gtt, around 0205 patient converted back to afib, Dr. Garcias notified, amio gtt remained running, around 0230 patient converted back to sinus rhythm, amio gtt continued to run per protocol, will continue to monitor
[2025-01-24] MEDS: Piperacillin Sodium/Tazobactam 3.375 GM in 0.9 % Sodium Chloride 50 ML IV ×4 (03:55→22:36)
[2025-01-24] MEDS: HYDROmorphone HCl 2 MG/ML VIAL IVPUSH ×5 (03:56→22:51)
[2025-01-24] MEDS: metroNIDAZOLE/NS 500 MG/100 ML PIGGYBACK 100 MG IV ×2 (06:30→16:48)
[2025-01-24 07:31] LABS: Alanine Aminotransferase < 6 U/L (0-31); Albumin Level 2.3 g/dL (3.5-5.0); Alkaline Phosphatase 91 U/L (39-117); Anion Gap 10 (12-20); Aspartate Amino Transferase 30 U/L (5-31); Bilirubin Total 0.8 mg/dL (0.0-1.0); Blood Urea Nitrogen 27 mg/dL (9-16); Calcium 8.2 mg/dL (8.4-10.2); Carbon Dioxide 29 mmol/L (22-29); Chloride 102 mmol/L (96-108); Creatinine Clr Calc Pharmacy 86.7; Estimated Glomerular Filt Rate > 60; Glucose Random 144 mg/dL (60-115); Magnesium 1.9 mg/dL (1.6-2.6); Phosphorus 2.5 mg/dL (2.7-4.5); Potassium 3.9 mmol/L (3.3-5.1); Sodium 137 mmol/L (135-145); Total Protein 7.2 g/dL (6.5-8.0)
[2025-01-24] MEDS: diazePAM 10 MG/2 ML CARTRIDGE 5 MG IVPUSH ×3 (07:35→23:49)
--- NOTE | 2025-01-24 07:44 | PM.PNGS ---
Subjective Subjective Date of Service: 01/24/25 <Gabi Victoria PA-C - Last Filed: 01/24/25 07:53> 01/24/25 <Gideon Ruvalcaba MD - Last Filed: 01/24/25 09:27> Interval history: Very anxious this morning regarding state of health and ongoing problems. C/o abdominal pain and shortness of breath with movement. Actually feels a bit hungry and would like to eat after IR drainage. <Gabi Victoria PA-C - Last Filed: 01/24/25 07:53> Physical Exam Vital Signs: Vital Signs: Last Vital Signs Temp 96.9 F 01/24/25 03:48 Pulse 82 01/24/25 03:48 Resp 16 01/24/25 03:48 BP 129/71 01/24/25 03:48 Pulse Ox 95 01/24/25 03:48 O2 Del Method Nasal Cannula 01/24/25 03:48 O2 Flow Rate 2 01/24/25 03:48 BMI result Body Mass Index 30.9 <Gabi Victorai PA-C - Last Filed: 01/24/25 07:53> Const: General: alert and anxious <Gabi Victoria PA-C - Last Filed: 01/24/25 07:53> Orientation/consciousness: patient oriented x3 <STAN Wilder Last Filed: 01/24/25 07:53> Resp: Other: mild increased work of breathing <Gabi Victoria PA-C - Last Filed: 01/24/25 07:53> Effort & Inspection: able to speak in complete sentences and not labored <Gabi Victoria PA-C - Last Filed: 01/24/25 07:53> GI: Other: soft, mild diffuse tenderness ostomy with stool output midline dressing from yesterday intact <STAN Wilder Last Filed: 01/24/25 07:53> Skin: General skin exam: no rashes or lesions noted <STAN Wilder Last Filed: 01/24/25 07:53> Neuro: General: patient oriented x3 and moves all extremities <STAN Wilder Last Filed: 01/24/25 07:53> Objective Data Active Medications Acetaminophen (Acetaminophen 325 Mg Tablet) 975 mg PO Q6H PRN PRN Reason: Pain, Mild 1-3,fever,headache Diazepam (Diazepam 10 Mg/2 Ml Cartridge) 5 mg IVPUSH Q6H PRN PRN Reason: Anxiety Last Admin: 01/22/25 12:30 Dose: 5 mg Documented By: BAKARI Heparin Sodium (Porcine) (Heparin Sodium,Porcine 5,000 Unit/Ml Vial) 5,000 unit SUBCUT Q8H [facility] Last Admin: 01/24/25 04:52 Dose: Not Given Documented By: JOSE Non-Admin Reason: See Note Hydromorphone HCl (Hydromorphone Hcl 2 Mg/Ml Vial) 2 mg IVPUSH Q2H PRN; Protocol PRN Reason: Pain, Severe (Pain Scale 7-10) Last Admin: 01/24/25 03:56 Dose: 2 mg Documented By: JOSE Piperacillin Sod/Tazobactam (Sod 3.375 gm/ Sodium Chloride) 50 mls @ 100 mls/hr IV Q6H [facility] Last Infusion: 01/24/25 04:52 Dose: Infused Documented By: JOSE Metronidazole (Flagyl) 500 mg in 100 mls @ 100 mls/hr IV Q8H [facility] Last Admin: 01/24/25 06:30 Dose: 100 mls/hr Documented By: JOSE Nutrition (Parenteral) (Parenteral Nutrition) 1,680 mls @ 70 mls/hr IV .Q24H [facility]; Protocol Stop: 01/24/25 20:59 Last Admin: 01/23/25 22:05 Dose: 70 mls/hr Documented By: JOSE Amiodarone HCl 900 mg/ Sodium (Chloride) 518 mls @ 34.533 mls/hr IVCONT .Q15H1M [facility]; Protocol Last Infusion: 01/23/25 19:35 Dose: 0.5 mg/min, 17.27 mls/hr Documented By: JOSE Mirtazapine (Mirtazapine 15 Mg Tablet) 15 mg PO BEDTIME [facility] Last Admin: 01/23/25 20:02 Dose: 15 mg Documented By: JOES Ondansetron HCl (Ondansetron Hcl 4 Mg/2 Ml Vial) 4 mg IVPUSH Q4H PRN PRN Reason: Nausea and Vomiting Last Admin: 01/22/25 12:31 Dose: 4 mg Documented By: BAKARI Pharmacy Consult (Consult Rx Parenteral Nutrition Ordering) 1 each MISCELLANE DAILY PRN PRN Reason: Consult order <Gabi Victoria PA-C - Last Filed: 01/24/25 07:53> Labs CBC & Chem 7: 01/23/25 06:08 01/24/25 06:51 <Gabi Victoria PA-C - Last Filed: 01/24/25 07:53> Labs: Laboratory Results - last 24 hr 01/24/25 06:51 Hold Purple Top SEE NOTE Anion Gap 10 L Estim Creat Clear Calc 86.7 Estimated GFR > 60 Random Glucose 144 H Calcium 8.2 L Phosphorus 2.5 L Magnesium 1.9 Total Bilirubin 0.8 AST 30 ALT < 6 Alkaline Phosphatase 91 Total Protein 7.2 Albumin 2.3 L <Gabi Victoria PA-C - Last Filed: 01/24/25 07:53> Microbiology Microbiology Results: Microbiology 01/21/25 12:33 Gram Stain - Final Incision Routine Culture - Final Escherichia coli Pseudomonas aeruginosa Anaerobic Culture - Preliminary Culture in progress. <Gabi Victoria PA-C - Last Filed: 01/24/25 07:53> Procedures Date of Service Date of Service: 01/24/25 <Gabi Victoria PA-C - Last Filed: 01/24/25 07:53> 01/24/25 <Gideon Ruvalcaba MD - Last Filed: 01/24/25 09:27> Progress Note: A&P Assessment and plan (1) Intra-abdominal abscess post-procedure: Status: Acute <Gabi Victoria PA-C - Last Filed: 01/24/25 07:53> Assessment and Plan: Anxious this morning No fever Abdomen is soft and benign Stoma functioning On amiodarone drip, rate well controlled Scheduled for IR yesterday, including for pleural effusion Seen and examined independently If she does not improve with drainage, we will convince her to transferred to [facility] <Gideon Ruvalcaba MD - Last Filed: 01/24/25 09:27> Assessment and Plan: Repeat CT scan yesterday for increasing leukocytosis showed new right lateral abdominal collection extending to the liver along with previous mid abdominal and pelvic collections; pleural effusion on left. IR drainage of new collection ordered for today. Cont TPN. Diet as tolerated following drainage. Incentive spirometry. Repeat labs in AM. Hopefully this improves her leukocytosis and clinical status or will need to rediscuss [place] [facility], cardiology following. On amiodarone drip, HR improved. <Gabi Victoria PA-C - Last Filed: 01/24/25 07:53> Time Spent With Patient Time: Total time managing care of this patient today ____ minutes. <Gabi Victoria PA-C - Last Filed: 01/24/25 07:53> Quality Stroke Does the patient have a stroke diagnosis?: No <Gabi Victoria PA-C - Last Filed: 01/24/25 07:53> VTE Prior VTE?: No <Gabi Victoria PA-C - Last Filed: 01/24/25 07:53> VTE Risk Level:: Medical - moderate - high <STAN Wilder Last Filed: 01/24/25 07:53> VTE Device Contraindication: N/A - Device Ordered <STAN Wilder Last Filed: 01/24/25 07:53> VTE Drug Contraindication: N/A - Med Ordered <Gabi Victoria PA-C - Last Filed: 01/24/25 07:53>
--- NOTE | 2025-01-24 07:50 | PC.NURSE ---
Anxious, emotional , stated that she worries about her health , stated I have 4 grandchildren , I dint want to . Pt asked for anti anxiety medication , medicated with Diazepam IV .
--- NOTE | 2025-01-24 09:33 | HO.PM.IMPN ---
Subjective Subjective Date of Service: 01/24/25 Interval History: mostly in sinus Physical Exam Vital Signs: Vital Signs: Last Vital Signs Temp 96.9 F 01/24/25 03:48 Pulse 82 01/24/25 03:48 Resp 16 01/24/25 03:48 BP 129/71 01/24/25 03:48 Pulse Ox 95 01/24/25 03:48 O2 Del Method Nasal Cannula 01/24/25 03:48 O2 Flow Rate 2 01/24/25 03:48 BMI result Body Mass Index 30.9 Const: General: alert and anxious Orientation/consciousness: patient oriented x3 Resp: Other: mild increased work of breathing Effort & Inspection: able to speak in complete sentences and not labored GI: Other: soft, mild diffuse tenderness ostomy with stool output midline dressing from yesterday intact Skin: General skin exam: no rashes or lesions noted Neuro: General: patient oriented x3 and moves all extremities Objective Data Active Medications Acetaminophen (Acetaminophen 325 Mg Tablet) 975 mg PO Q6H PRN PRN Reason: Pain, Mild 1-3,fever,headache Diazepam (Diazepam 10 Mg/2 Ml Cartridge) 5 mg IVPUSH Q6H PRN PRN Reason: Anxiety Last Admin: 01/24/25 07:35 Dose: 5 mg Documented By: SANDY Heparin Sodium (Porcine) (Heparin Sodium,Porcine 5,000 Unit/Ml Vial) 5,000 unit SUBCUT Q8H [facility] Last Admin: 01/24/25 04:52 Dose: Not Given Documented By: JOSE Non-Admin Reason: See Note Hydromorphone HCl (Hydromorphone Hcl 2 Mg/Ml Vial) 2 mg IVPUSH Q2H PRN; Protocol PRN Reason: Pain, Severe (Pain Scale 7-10) Last Admin: 01/24/25 03:56 Dose: 2 mg Documented By: JOSE Piperacillin Sod/Tazobactam (Sod 3.375 gm/ Sodium Chloride) 50 mls @ 100 mls/hr IV Q6H [facility] Last Infusion: 01/24/25 04:52 Dose: Infused Documented By: JOSE Metronidazole (Flagyl) 500 mg in 100 mls @ 100 mls/hr IV Q8H [facility] Last Infusion: 01/24/25 07:50 Dose: Infused Documented By: HO.VAISHNAVI Nutrition (Parenteral) (Parenteral Nutrition) 1,680 mls @ 70 mls/hr IV .Q24H [facility]; Protocol Stop: 01/24/25 20:59 Last Admin: 01/23/25 22:05 Dose: 70 mls/hr Documented By: JOSE Amiodarone HCl 900 mg/ Sodium (Chloride) 518 mls @ 34.533 mls/hr IVCONT .Q15H1M [facility]; Protocol Last Admin: 01/24/25 07:49 Dose: Not Given Documented By: SANDY Non-Admin Reason: IV Running Nutrition (Parenteral) (Parenteral Nutrition) 1,680 mls @ 70 mls/hr IV .Q24H [facility]; Protocol Stop: 01/25/25 20:59 Mirtazapine (Mirtazapine 15 Mg Tablet) 15 mg PO BEDTIME [facility] Last Admin: 01/23/25 20:02 Dose: 15 mg Documented By: JOSE Ondansetron HCl (Ondansetron Hcl 4 Mg/2 Ml Vial) 4 mg IVPUSH Q4H PRN PRN Reason: Nausea and Vomiting Last Admin: 01/22/25 12:31 Dose: 4 mg Documented By: BAKARI Pharmacy Consult (Consult Rx Parenteral Nutrition Ordering) 1 each MISCELLANE DAILY PRN PRN Reason: Consult order Labs 01/23/25 06:08 01/24/25 06:51 Labs: Laboratory Results - last 24 hr 01/24/25 06:51 Hold Purple Top SEE NOTE Anion Gap 10 L Estim Creat Clear Calc 86.7 Estimated GFR > 60 Random Glucose 144 H Calcium 8.2 L Phosphorus 2.5 L Magnesium 1.9 Total Bilirubin 0.8 AST 30 ALT < 6 Alkaline Phosphatase 91 Total Protein 7.2 Albumin 2.3 L Microbiology Microbiology Results: Microbiology 01/21/25 12:33 Gram Stain - Final Incision Routine Culture - Final Escherichia coli Pseudomonas aeruginosa Anaerobic Culture - Preliminary Culture in progress. Assessment and Plan (1) Pulmonary edema: Status: Acute (2) Bacteremia: Status: Acute (3) Intra-abdominal abscess post-procedure: Status: Acute Plan 64-year-old lady with underlying history of diastolic dysfunction, CAD, IBS, recent subtotal colectomy and hernia repair at [facility] on 01/07/2025 with ileostomy presented w 2 day history of worsening abdominal pain and hypotensive with poor response to initial IV fluid resuscitation requiring pressor support. On CT imaging patient with likely abdominal abscess with gas collection. Patient refused transfer to [facility]. evaluated by surgical team with current plans for non operative management with antibiotics and close monitoring. Follow-up CT chest on 01/17/2025 with multiple intra-abdominal collections. blood cultures growing Fineglodia Magna. acute hypoxic respiratory failure due to Pulmonary edema and effusion 2/2 acute on chronic diastolic CHF exacerbation From fluid resuscitation will hold off on further iv lasix for now I\O wean O2 down as tolerated voiding trial successful new onset afib with rvr on amio drip cardio following mostly in sinus now, but occasionally going in afib Intra abdominal Abscesses with Fineglogia Magna Bactremia and worsening Leukocytosis Surgery team following ; non operative approach now Covered with Zosyn , added Flagyl on PPN ID following Acute on chronic anemia Improved after PRBCs transfusion monitor H&H no bleeding reported Hx CAD Carvedilol, Losartan as BP tolerate Hold HCT for now DVT PPx Heparin SC Quality Stroke Does the patient have a stroke diagnosis?: No VTE Prior VTE?: No VTE Risk Level:: Medical - moderate - high VTE Device Contraindication: N/A - Device Ordered VTE Drug Contraindication: N/A - Med Ordered
--- NOTE | 2025-01-24 09:50 | MHC.CLN ---
F/U PT IS CURRENTLY NPO FOR IR DRAINAGE TODAY WHEN DIET TO RESUME; RECOMMEND ADDING ENSURE TID TO INCREASE KCALS SUPP TO PROVIDE 1050KCALS, 60G PROTEIN WITH 100% ACCEPTANCE REVIEWED LABS DISCUSSED WITH PHARMACY CONTINUE TPN AT MAX GOAL RATE OF 70ML/HR WITH 25G LIPIDS PROVIDES 1443 TOTAL KCALS (25KCALS/KG BASED ON CMW), 252G DEXTROSE, 84G PROTEIN (1.4G/KG) REPLETE LYTES NEEDED RD CAN BE REACHED DURING VIA TIGER CONNECT IF NEEDED
--- NOTE | 2025-01-24 10:39 | PM.PNCARD ---
Subjective Subjective Date of Service: 01/24/25 Interval history: Seen and examined at bedside. Denying any significant dyspnea. Continues to have abdominal pain and is going for percutaneous abscess drainage today. Physical Exam Vital Signs: Last Vital Signs Temp 98.2 F 01/24/25 09:55 Pulse 80 01/24/25 09:55 Resp 20 01/24/25 09:55 BP 130/64 01/24/25 09:55 Pulse Ox 98 01/24/25 09:55 O2 Del Method Room Air 01/24/25 09:55 O2 Flow Rate 2 01/24/25 03:48 BMI result Body Mass Index 30.9 GENERAL APPEARANCE: In no acute distress.. NECK: no carotid bruit, no jugular venous distention. SKIN: no suspicious lesions, warm and dry. HEART: no murmurs, regular rate and rhythm. LUNGS: clear to auscultation anteriorly. ABDOMEN: soft, right abdominal wall ileostomy with back. Midline wound which is currently dressed. EXTREMITIES: no edema. PERIPHERAL PULSES: equal. NEUROLOGIC: No gross deficits, AAO X 3 Objective Labs and Meds 01/23/25 06:08 01/24/25 06:51 Lab results: Laboratory Results - last 24 hr 01/24/25 06:51 Hold Purple Top SEE NOTE Sodium 137 Potassium 3.9 Chloride 102 Carbon Dioxide 29 Anion Gap 10 L BUN 27 H Creatinine 0.62 Estim Creat Clear Calc 86.7 Estimated GFR > 60 Random Glucose 144 H Calcium 8.2 L Phosphorus 2.5 L Magnesium 1.9 Total Bilirubin 0.8 AST 30 ALT < 6 Alkaline Phosphatase 91 Total Protein 7.2 Albumin 2.3 L Imaging Radiologist's impression: Impressions Abdomen/Pelvis CT 01/23/25 13:56 IMPRESSION: 1. Subcapsular hepatic fluid collection with an enhancing rim suspicious for abscess. 2. At least 3 rim-enhancing fluid collections are identified in the abdomen and pelvis as described, suspicious for abscesses. The collection in the right lateral midabdomen may communicate with the subhepatic collection. 3. New moderate-sized pericardial effusion. 4. Small bilateral pleural effusions. The left pleural effusion is slightly larger. Electronically signed by: Rashard Saha MD 01/23/2025 02:28 PM EDT RP Progress Note: A&P Assessment and plan (1) Atrial flutter: Status: Acute (2) Pulmonary edema: Status: Acute Plan 64-year-old female with complex abdominal surgeries currently presenting with abdominal abscess and sepsis. She had heart failure episode in this setting and also developed atrial flutter. Echocardiography has shown normal LV function with a moderate pericardial effusion laterally. There is no tamponade physiology. Clinically volume status appears to be stable. I think she should stay on diuretics for now. She had episodes of atrial flutter which have improved with amiodarone drip and I think we should continue the amiodarone for now. Hopefully she can take oral medicines soon and can be transitioned to oral amiodarone at that time. Thank you for allowing me to participate in the care of your patient. Please feel free to contact me if you have any questions. Time Spent With Patient Time: Total time managing care of this patient today ____ minutes. Progress Note: Quality Stroke Does the patient have a stroke diagnosis?: No Procedures Date of Service Date of Service: 01/24/25
--- NOTE | 2025-01-24 13:39 | P.EN_ITS ---
Event Note Date of Service: 01/28/25 Event Note: CAT scan images reviewed with Dr. Tabor of IR One abscess may be drainable but 3 other abscesses not accessible She continues to have leukocytosis, rising Abdomen is soft, stoma functioning In view of persistent abscesses, abscess, persistent leukocytosis despite being on antibiotics for over a week now, we are arranging for her to be transferred back to [facility] I have reached out to the office of Dr. Dominik Dorantes has also reach out to [facility] Dr. Lehman in surgery currently I have discussed above plan with the patient She initially was resistant to the idea of being transferred back to [place] I was able to convince her eventually as she may need to have open surgery for drainage of abscesses Discussed with hospitalist service Time Spent With Patient Time: Total time managing care of this patient today ____ minutes.
[2025-01-24] MEDS: Heparin Sodium,Porcine 5,000 UNIT/ML VIAL 5000 UNIT SUBCUT ×2 (13:55→22:39)
[2025-01-24] MEDS: Amiodarone HCL 900 MG in 0.9 % Sodium Chloride 500 ML 17.27 MG IVCONT (14:10)
--- NOTE | 2025-01-24 19:27 | PC.NURSE ---
per Luz MORIN, when pt is ready to transport via EMS to , pt will NOT transport with with PPN. pt will transport with amio gtt, air sampling and monitoring, and NC o2.
--- NOTE | 2025-01-24 19:36 | HO.SKINPHOTO ---
Location: Category: Stage: Length: Width: Depth: cm Location: Category: Stage: Length: Width: Depth: cm Location: Category: Stage: Length: Width: Depth: cm Location: Category: Stage: Length: Width: Depth: cm Location: Category: Stage: Length: Width: Depth: cm Location: Category: Stage: Length: Width: Depth: cm
--- NOTE | 2025-01-24 20:06 | PM.EVENT ---
Event Note Date of Service: 01/24/25 Event Note: Spoke to the patient and to her colorectal surgeon Dr. Lehman at [facility] who agree with having the patient return to [facility] and transfer. Discussion had with transfer center. Waiting to hear back for approval of a bed and time and date. In the meantime patient relatively stable was decent vitals. She looks fatigued and tired. Ileostomy is working. Is getting TPN IV fluids IV antibiotics. White count is elevated and increasing to 27. Going to discuss case with Infectious diseases and get their input. Awaiting transfer Time Spent With Patient Time: Total time managing care of this patient today ____ minutes.
[2025-01-24] MEDS: Parenteral Nutrition 1,680 ML 70 ML IV (22:23)
[2025-01-24] MEDS: Caspofungin Acetate 70 MG in 0.9 % Sodium Chloride 250 ML 250 MG IV (22:31)
[2025-01-24] MEDS: Mirtazapine 15 MG TABLET PO (22:39)
[2025-01-24] MEDS: vancomycin HCL 750 MG in 0.9 % Sodium Chloride 250 ML 265 MG IV (22:40)
[2025-01-25] MEDS: metroNIDAZOLE/NS 500 MG/100 ML PIGGYBACK 100 MG IV ×3 (00:06→15:19)
[2025-01-25] MEDS: HYDROmorphone HCl 2 MG/ML VIAL IVPUSH ×7 (01:53→20:35)
[2025-01-25 04:00] VITALS: BP 175/83; PULSE 88; RESP 18; TEMP 36.4; O2SAT 94
[2025-01-25] MEDS: Piperacillin Sodium/Tazobactam 3.375 GM in 0.9 % Sodium Chloride 50 ML IV ×2 (04:54→10:10)
[2025-01-25] MEDS: Heparin Sodium,Porcine 5,000 UNIT/ML VIAL 5000 UNIT SUBCUT ×2 (05:55→15:15)
[2025-01-25] MEDS: diazePAM 10 MG/2 ML CARTRIDGE 5 MG IVPUSH ×3 (05:57→20:36)
[2025-01-25 06:09] VITALS: BP 136/74; PULSE 74; RESP 18; TEMP 36; O2SAT 96
[2025-01-25 06:16] LABS: MANUAL DIFF FLAG NO
[2025-01-25 06:20] LABS: Basophils Absolute Auto 0.1 X10*3/uL (0.0-0.2); Basophils Percent Auto 0.4 % (0-2); Eosinophils Absolute Auto 0.2 X10*3/uL (0.0-0.4); Hematocrit 25.8 % (37.0-47.0); Hemoglobin 8.3 g/dl (12.0-16.0); Imm Gran Pct Auto 4.6 % (0.0-0.4); Lymphocytes Absolute Auto 1.4 X10*3/uL (1.2-4.9); Mean Corpuscular HGB Conc 32.2 g/dl (31.0-35.0); Mean Corpuscular Hemoglobin 29.4 pg (27.0-33.0); Mean Corpuscular Volume 91.5 fL (80.0-98.0); Mean Platelet Volume 10.6 fL (9.4-12.3); Monocytes Absolute Auto 1.4 X10*3/uL (0.1-1.2); Monocytes Percent Auto 5.9 % (2-11); Neutrophils Absolute Auto 19.5 x10*3/uL (2.0-8.3); Neutrophils Percent Auto 82.1 % (45-73); Platelet Count 276 X10*3/uL (160-400); Red Blood Count 2.82 X10*6/uL (4.20-5.50); Red Cell Distribution Width 15.1 % (11.0-16.0); White Blood Count 23.8 X10*3/uL (4.8-10.8)
[2025-01-25 06:57] LABS: Alanine Aminotransferase < 6 U/L (0-31); Albumin Level 2.2 g/dL (3.5-5.0); Alkaline Phosphatase 88 U/L (39-117); Anion Gap 12 (12-20); Aspartate Amino Transferase 32 U/L (5-31); Bilirubin Total 0.7 mg/dL (0.0-1.0); Blood Urea Nitrogen 21 mg/dL (9-16); Calcium 8.1 mg/dL (8.4-10.2); Carbon Dioxide 23 mmol/L (22-29); Chloride 105 mmol/L (96-108); Creatinine Clr Calc Pharmacy 97.8; Estimated Glomerular Filt Rate > 60; Glucose Random 134 mg/dL (60-115); Magnesium 2.1 mg/dL (1.6-2.6); Phosphorus 2.6 mg/dL (2.7-4.5); Potassium 4.5 mmol/L (3.3-5.1); Sodium 135 mmol/L (135-145)
[2025-01-25 07:50] VITALS: BP 154/74; PULSE 88; RESP 20; TEMP 36.3; O2SAT 99
[2025-01-25] MEDS: Furosemide 40 MG TABLET PO (08:23)
--- NOTE | 2025-01-25 09:53 | P.PNIM_ITS ---
Subjective Subjective Date of Service: 01/25/25 Interval History: mostly in sinus Physical Exam 2 Vital Signs: Vital Signs: Last Vital Signs Temp 97.3 F 01/25/25 07:50 Pulse 88 01/25/25 07:50 Resp 20 01/25/25 07:50 BP 154/74 H 01/25/25 07:50 Pulse Ox 99 01/25/25 07:50 O2 Del Method Nasal Cannula 01/25/25 07:50 O2 Flow Rate 2 01/25/25 07:50 BMI result Body Mass Index 30.9 GENERAL APPEARANCE: In no acute distress.. NECK: no carotid bruit, no jugular venous distention. SKIN: no suspicious lesions, warm and dry. HEART: no murmurs, regular rate and rhythm. LUNGS: clear to auscultation anteriorly. ABDOMEN: soft, right abdominal wall ileostomy with back. Midline wound which is currently dressed. EXTREMITIES: no edema. PERIPHERAL PULSES: equal. NEUROLOGIC: No gross deficits, AAO X 3 Objective Data Active Medications Acetaminophen (Acetaminophen 325 Mg Tablet) 975 mg PO Q6H PRN PRN Reason: Pain, Mild 1-3,fever,headache Diazepam (Diazepam 10 Mg/2 Ml Cartridge) 5 mg IVPUSH Q6H PRN PRN Reason: Anxiety Last Admin: 01/25/25 05:57 Dose: 5 mg Documented By: CARLY Furosemide (Furosemide 40 Mg Tablet) 40 mg PO DAILY [facility]; Protocol Last Admin: 01/25/25 08:23 Dose: 40 mg Documented By: JESSE Heparin Sodium (Porcine) (Heparin Sodium,Porcine 5,000 Unit/Ml Vial) 5,000 unit SUBCUT Q8H [facility] Last Admin: 01/25/25 05:55 Dose: 5,000 unit Documented By: CARLY Hydromorphone HCl (Hydromorphone Hcl 2 Mg/Ml Vial) 2 mg IVPUSH Q2H PRN; Protocol PRN Reason: Pain, Severe (Pain Scale 7-10) Last Admin: 01/25/25 08:23 Dose: 2 mg Documented By: JESSE Piperacillin Sod/Tazobactam (Sod 3.375 gm/ Sodium Chloride) 50 mls @ 100 mls/hr IV Q6H [facility] Last Infusion: 01/25/25 05:55 Dose: Infused Documented By: CARLY Metronidazole (Flagyl) 500 mg in 100 mls @ 100 mls/hr IV Q8H [facility] Last Infusion: 01/25/25 09:48 Dose: Infused Documented By: JESSE Amiodarone HCl 900 mg/ Sodium (Chloride) 518 mls @ 34.533 mls/hr IVCONT .Q15H1M [facility]; Protocol Last Admin: 01/24/25 14:10 Dose: 0.5 mg/min, 17.27 mls/hr Documented By: MAURIZIO Nutrition (Parenteral) (Parenteral Nutrition) 1,680 mls @ 70 mls/hr IV .Q24H [facility]; Protocol Stop: 01/25/25 20:59 Last Admin: 01/24/25 22:23 Dose: 70 mls/hr Documented By: EUSEBIO Vancomycin HCl 750 mg/ Sodium (Chloride) 265 mls @ 265 mls/hr IV Q12H [facility] Last Infusion: 01/24/25 23:40 Dose: Infused Documented By: EUSEBIO Nutrition (Parenteral) (Parenteral Nutrition) 1,680 mls @ 70 mls/hr IV .Q24H [facility]; Protocol Stop: 01/26/25 20:59 Mirtazapine (Mirtazapine 15 Mg Tablet) 15 mg PO BEDTIME [facility] Last Admin: 01/24/25 22:39 Dose: 15 mg Documented By: EUSEBIO Ondansetron HCl (Ondansetron Hcl 4 Mg/2 Ml Vial) 4 mg IVPUSH Q4H PRN PRN Reason: Nausea and Vomiting Last Admin: 01/22/25 12:31 Dose: 4 mg Documented By: BAKARI Pharmacy Consult (Consult Rx Parenteral Nutrition Ordering) 1 each MISCELLANE DAILY PRN PRN Reason: Consult order Pharmacy Consult (Consult Rx Vancomycin Dosing) 1 each MISCELLANE DAILY PRN PRN Reason: Consult order Labs 01/25/25 06:03 01/25/25 06:03 Labs: Laboratory Results - last 24 hr 01/25/25 06:03 MCV 91.5 MCH 29.4 MCHC 32.2 RDW 15.1 Plt Count 276 MPV 10.6 Immature Gran % (Auto) 4.6 H Neut % (Auto) 82.1 H Lymph % (Auto) 6.0 L [place] % (Auto) 5.9 Eos % (Auto) 1.0 Baso % (Auto) 0.4 Lymph # (Auto) 1.4 [place] # (Auto) 1.4 H Eos # (Auto) 0.2 Baso # (Auto) 0.1 Abs Immat Gran (auto) 1.10 H Absolute Neuts (auto) 19.5 H Absolute Nucleated RBC 0.000 Nucleated RBC % (auto) 0.0 Anion Gap 12 Estim Creat Clear Calc 97.8 Estimated GFR > 60 Random Glucose 134 H Calcium 8.1 L Phosphorus 2.6 L Magnesium 2.1 Total Bilirubin 0.7 AST 32 H ALT < 6 Alkaline Phosphatase 88 Total Protein 7.0 Albumin 2.2 L Microbiology Microbiology Results: Microbiology 01/21/25 12:33 Gram Stain - Final Incision Routine Culture - Final Escherichia coli Pseudomonas aeruginosa Anaerobic Culture - Preliminary Culture in progress. Assessment and Plan (1) Pulmonary edema: Status: Acute (2) Bacteremia: Status: Acute (3) Intra-abdominal abscess post-procedure: Status: Acute Plan 64-year-old lady with underlying history of diastolic dysfunction, CAD, IBS, recent subtotal colectomy and hernia repair at [facility] on 01/07/2025 with ileostomy presented w 2 day history of worsening abdominal pain and hypotensive with poor response to initial IV fluid resuscitation requiring pressor support. On CT imaging patient with likely abdominal abscess with gas collection. Patient refused transfer to [facility]. evaluated by surgical team with current plans for non operative management with antibiotics and close monitoring. Follow-up CT chest on 01/17/2025 with multiple intra-abdominal collections. blood cultures growing Fineglodia Magna. acute hypoxic respiratory failure due to Pulmonary edema and effusion 2/2 acute on chronic diastolic CHF exacerbation Now on p.o. Lasix I\O wean O2 down as tolerated voiding trial successful new onset afib with rvr on amio drip cardio following mostly in sinus now, but occasionally going in afib Intra abdominal Abscesses with Fineglogia Magna Bactremia and worsening Leukocytosis Surgery team following ; non operative approach now Covered with Zosyn , added Flagyl on PPN ID following Acute on chronic anemia Improved after PRBCs transfusion monitor H&H no bleeding reported Hx CAD Carvedilol, Losartan as BP tolerate Hold HCT for now DVT PPx Heparin SC Quality Stroke Does the patient have a stroke diagnosis?: No VTE Prior VTE?: No VTE Risk Level:: Medical - moderate - high VTE Device Contraindication: N/A - Device Ordered VTE Drug Contraindication: N/A - Med Ordered
--- NOTE | 2025-01-25 10:34 | PM.TDS ---
Transfer Discharge Sum: Prov Provider Date of admission: 01/15/25 14:06 Primary care physician: Joi Rebollar MD Attending physician on admission: Alvaro Oneil Consults: 01/15/25 16:24 Consult to Wound Care Routine Reason for consultation: midline surgical incision, new ileostomy site from procedure at [facility] 01/19/25 13:42 Consult to Hospitalist Routine Comment: Consulting Provider: [facility] Hospitalists Reason For Exam: signficant CAD, cardiomyopathy; 01/20/25 07:56 Consult to Infectious Diseases Routine Consulting Provider: [facility] Reason for consultation: abdominal abscess. blood cultures Finegoldia magna 01/21/25 20:34 Consult to Cardiology Routine Consulting Provider: [facility] Reason for consultation: afib with rvr Has provider been notified: Yes Attending physician on discharge: Gideon Ruvalcaba Receiving physician/facility: [facility], Dr. Kadeem Lehman DS: Diagnosis Discharge Diagnosis (1) Pulmonary edema: Status: Acute (2) Bacteremia: Status: Acute (3) Intra-abdominal abscess post-procedure: Status: Acute Transfer Discharge Sum: Med Medications Active and Home Medications: Home Medications calcium 600 mg (as carbonate)-vitamin D3 5 mcg (200 unit) tablet (Calcium 600 + D(3)) 1 tab PO DAILY 11/30/23 [History Confirmed 01/15/25] mirtazapine 15 mg tablet 15 mg PO BEDTIME 11/30/23 [History Confirmed 01/15/25] acetaminophen 325 mg tablet (Tylenol) 650 mg PO Q12H PRN Pain 01/07/24 [History Confirmed 01/15/25] multivitamin with minerals-folic acid 200 mcg chewable tablet (Multivitamin Gummies) 1 tab PO DAILY 01/07/24 [History Confirmed 01/15/25] esomeprazole magnesium 20 mg capsule,delayed release (Nexium) 20 mg PO DAILY #30 caps 01/16/24 [Rx Confirmed 01/15/25] carisoprodol 350 mg tablet 350 mg PO BEDTIME 03/19/24 [History Confirmed 01/15/25] magnesium glycinate 800 mg PO DAILY 03/19/24 [History Confirmed 01/15/25] carvedilol 6.25 mg tablet (Coreg) 6.25 mg PO BID 90 days #180 tabs 10/17/24 [Rx Confirmed 01/15/25] atorvastatin 20 mg tablet 20 mg PO BEDTIME #90 tabs 11/04/24 [Rx Confirmed 01/15/25] B-complex with vitamin C 1 tab PO DAILY 01/15/25 [History Confirmed 01/15/25] fluticasone propionate 50 mcg/actuation nasal spray,suspension 1 spray intranasal DAILY 01/15/25 [History Confirmed 01/15/25] hydrochlorothiazide 25 mg tablet 25 mg PO DAILY 01/15/25 [History Confirmed 01/15/25] hydromorphone 2 mg tablet 2 - 4 mg PO Q3H PRN pain 01/15/25 [History Confirmed 01/15/25] ibuprofen 200 mg tablet 400 mg PO Q6H PRN Pain 01/15/25 [History Confirmed 01/15/25] losartan 25 mg tablet 25 mg PO DAILY 01/15/25 [History Confirmed 01/15/25] ondansetron 4 mg disintegrating tablet 4 mg PO Q8H PRN Nausea And Vomiting 01/15/25 [History Confirmed 01/15/25] potassium chloride 10 mEq tablet,extended release 10 meq PO DAILY 01/15/25 [History Confirmed 01/15/25] Active Medications Acetaminophen (Acetaminophen 325 Mg Tablet) 975 mg PO Q6H PRN PRN Reason: Pain, Mild 1-3,fever,headache Diazepam (Diazepam 10 Mg/2 Ml Cartridge) 5 mg IVPUSH Q6H PRN PRN Reason: Anxiety Last Admin: 01/24/25 07:35 Dose: 5 mg Furosemide (Furosemide 40 Mg Tablet) 40 mg PO DAILY [facility]; Protocol Heparin Sodium (Porcine) (Heparin Sodium,Porcine 5,000 Unit/Ml Vial) 5,000 unit SUBCUT Q8H [facility] Last Admin: 01/24/25 04:52 Dose: Not Given Hydromorphone HCl (Hydromorphone Hcl 2 Mg/Ml Vial) 2 mg IVPUSH Q2H PRN; Protocol PRN Reason: Pain, Severe (Pain Scale 7-10) Last Admin: 01/24/25 03:56 Dose: 2 mg Piperacillin Sod/Tazobactam (Sod 3.375 gm/ Sodium Chloride) 50 mls @ 100 mls/hr IV Q6H [facility] Last Infusion: 01/24/25 04:52 Dose: Infused Metronidazole (Flagyl) 500 mg in 100 mls @ 100 mls/hr IV Q8H [facility] Last Infusion: 01/24/25 07:50 Dose: Infused Nutrition (Parenteral) (Parenteral Nutrition) 1,680 mls @ 70 mls/hr IV .Q24H [facility]; Protocol Stop: 01/24/25 20:59 Last Admin: 01/23/25 22:05 Dose: 70 mls/hr Amiodarone HCl 900 mg/ Sodium (Chloride) 518 mls @ 34.533 mls/hr IVCONT .Q15H1M [facility]; Protocol Last Admin: 01/24/25 07:49 Dose: Not Given Nutrition (Parenteral) (Parenteral Nutrition) 1,680 mls @ 70 mls/hr IV .Q24H [facility]; Protocol Stop: 01/25/25 20:59 Mirtazapine (Mirtazapine 15 Mg Tablet) 15 mg PO BEDTIME [facility] Last Admin: 01/23/25 20:02 Dose: 15 mg Ondansetron HCl (Ondansetron Hcl 4 Mg/2 Ml Vial) 4 mg IVPUSH Q4H PRN PRN Reason: Nausea and Vomiting Last Admin: 01/22/25 12:31 Dose: 4 mg Pharmacy Consult (Consult Rx Parenteral Nutrition Ordering) 1 each MISCELLANE DAILY PRN PRN Reason: Consult order Transfer Discharge Sum: Hosp Hospital Course Hospital course: HPI AT ADMISSION: 64-year-old female patient returning to the ED with complaints of severe abdominal pain, nausea, vomiting since yesterday. She is well known to the service with a past medical history of MARKIE, non STEMI, cardiomyopathy, anemia, anxiety, [place], hypertension, IBS, GERD, status post sigmoid colectomy with a Tye procedure for perforated sigmoid diverticulitis and colo vaginal fistula. She underwent the closure colostomy and has a right lower quadrant ileostomy. Patient had a complicated surgical history was eventually referred to [facility] (Dr. Kadeem Lehman) where she underwent a subtotal colectomy and parastomal hernia repair on 01/07/2025 and was discharged 01/11/25. She began to develop increased abdominal pain starting yesterday with the associated nausea and vomiting and subsequently presented to the emergency department this morning. In the emergency department she was found to be hypotensive with a WBC of 15.3 and lactic acid of 2.3. She was given IV boluses, blood cultures were sent and she was started on IV antibiotics (ceftriaxone). A CT of the abdomen and pelvis showed multiple bubbles of extraluminal gas in the pelvis adjacent to the small bowel loops, with a 3 cm collection of gas and fluid in the central pelvis suspicious for an abscess. HOSPITAL COURSE: The patient was given an opportunity to return to [facility] however refused transfer. The patient was admitted for further treatment. She was initially admitted to ICU for her hypotension with poor response to initial IV fluid resuscitation requiring pressor support. Intraabdominal fluid collections not amenable to IR drainage. Because of the patient's recent surgery it was felt it may still be postoperative fluid and air and putting her through another surgery at this time would be extremely difficult due to the acute adhesions. Therefore nonoperative management with IV hydration, antibiotics, close monitoring and repeat CT in 24-48 hours was recommended. She was started on IV zosyn and vancomycin. TPN was initiated. Right IJ triple-lumen CVC placed on 01/16/25. Her WBC actually began to downtrend and she felt improved. Repeat CT scan on 01/17/25 showed increased fluid collections, postoperative changes, possible interloop abscess or postoperative fluid collections. However she had a dramatic drop in her WBC count and it actually normalized and therefore supportive care, antibiotics were continued. One initial blood cultures was positive for Finegoldia magna felt to be a contaminant and repeat blood cultures were negative. She developed acute on chronic anemia and her H/H drifted down to 7 from 11 on admission and was given 1U PRBC with appropriate rise. No evidence of bleeding. Her H/H remained stable following. She was gradually titrated off pressor support and transferred to the medical/telemetry floor. ID was consulted who recommended discontinuing vanco (4 days total) and IV flagyl was initiated. She actually developed some seropurulent drainage from a small opening of the very distal aspect of her midline incision, presumed intraabdominal source, which was cultured and grew E coli and Pseudomonas. She developed some dyspnea and hypoxia and CXR was performed which showed pulmonary edema and effusion likely secondary to acute on chronic diastolic CHF exacerbation, fluid resuscitation. IV lasix was initiated with strict I/Os, supplemental O2 with improvement in her symptoms. Lasix was transitioned to oral 40mg daily. During her stay, she became tachycardic with HR in 140-150s, EKG showed a flutter/afib. TSH nml. Cardiology was consulted. Echocardiography showed normal LV function with a moderate pericardial effusion laterally without tamponade physiology. She was started on amiodarone drip 1 milligram/minute with improvement in HR and this was continued. Her diet was slowly advanced during this time but her oral intake remained low. Her ostomy continued to function well. Her WBC continued to trend up and repeat CT scan abd pelvis on 01/23/25 showed new right lateral abdominal collection extending to the liver with unchanged prior mid abdominal and pelvic collections, pleural effusions. IR consulted for thoracentesis and they felt it was not indicated for pleural effusions. At this point it was discussed again that she has not improved with nonoperative measures and in fact continues to worsen overall. It was recommended to proceed with transfer to [facility] for further treatment. She initially refused however eventually agreed and the transfer was arranged. She was transferred to [facility] on 01/25/25 on cardiac monitoring and amiodarone drip. Time Spent with Patient Time attestation: Total time managing care of this patient today _65___ minutes. Physical Exam Vital Signs: Vital Signs: Last Vital Signs Temp 98.2 F 01/24/25 09:55 Pulse 80 01/24/25 09:55 Resp 20 01/24/25 09:55 BP 130/64 01/24/25 09:55 Pulse Ox 98 01/24/25 09:55 O2 Del Method Room Air 01/24/25 09:55 O2 Flow Rate 2 01/24/25 03:48 BMI result Body Mass Index 30.9 Const: General: alert and anxious Orientation/consciousness: patient oriented x3 Neck: Neck: Yes no JVD Resp: Other: on 2L O2 via NC mild increased work of breathing wheezes throughout b/l Effort & Inspection: able to speak in complete sentences, not labored and not tachypneic Cardio: Rate: regular rate GI: Other: ostomy pink, stool in appliance midline incision without erythema, seropurulent drainage from very distal aspect Inspection: No distended Palpation (GI): Soft to palpation and Tenderness to palpation present (GI) (mild diffuse, increased suprapubic and right mid abdomen ) Skin: Other: warm and dry Neuro: General: patient oriented x3 and moves all extremities Transfer Discharge Sum: Data Data Completed and Pending Completed studies during hospitalization: Procedures Bypass Ileum to Cutaneous, Open Approach (11/30/23) Bypass Sigmoid Colon to Cutaneous, Open Approach (05/04/23) Dilation of Left Ureter with Intraluminal Device, Via Natural or Artificial Opening Endoscopic (05/04/23) Drainage of Pelvic Cavity, Percutaneous Approach (05/04/23) Excision of Sigmoid Colon, Open Approach (05/04/23) Excision of Small Intestine, Open Approach (05/04/23) Fluoroscopy of Left Kidney, Ureter and Bladder (05/04/23) Insertion of Infusion Device into Right Brachial Vein, Percutaneous Approach (11/30/23) Insertion of Infusion Device into Superior Vena Cava, Percutaneous Approach (12/29/23) Introduction of Vasopressor into Peripheral Vein, Percutaneous Approach (05/04/23) Release Peritoneum, Open Approach (11/30/23) Reposition Rectum, Open Approach (11/30/23) Transfusion of Nonautologous Red Blood Cells into Peripheral Vein, Percutaneous Approach (05/04/23) Ultrasonography of Superior Vena Cava, Guidance (12/29/23)
[2025-01-25] MEDS: vancomycin HCL 750 MG in 0.9 % Sodium Chloride 250 ML 265 MG IV (10:59)
[2025-01-25 11:39] VITALS: BP 136/68; PULSE 134; RESP 20; TEMP 36.6; O2SAT 96
[2025-01-25] MEDS: Acetaminophen 325 MG TABLET 975 MG PO (12:12)
[2025-01-25 14:57] VITALS: BP 100/56; PULSE 83; RESP 16; TEMP 36.1; O2SAT 96
--- NOTE | 2025-01-25 16:43 | PM.PNGS ---
Subjective Subjective Date of Service: 01/25/25 Interval history: feeling a little better today not as short of breath pt ileosotmy cont to work wbc down to 23 from 27 - yesterday vanco and caspofungin started Physical Exam Vital Signs: Vital Signs: Last Vital Signs Temp 97.0 F 01/25/25 14:57 Pulse 83 01/25/25 14:57 Resp 16 01/25/25 14:57 BP 100/56 L 01/25/25 14:57 Pulse Ox 96 01/25/25 14:57 O2 Del Method Nasal Cannula 01/25/25 14:57 O2 Flow Rate 2 01/25/25 14:57 BMI result Body Mass Index 30.9 Const: General: cooperative and comfortable GI: Other: soft nontender ileostomy working Objective Data Active Medications Acetaminophen (Acetaminophen 325 Mg Tablet) 975 mg PO Q6H PRN PRN Reason: Pain, Mild 1-3,fever,headache Last Admin: 01/25/25 12:12 Dose: 975 mg Documented By: JESSE Diazepam (Diazepam 10 Mg/2 Ml Cartridge) 5 mg IVPUSH Q6H PRN PRN Reason: Anxiety Last Admin: 01/25/25 12:11 Dose: 5 mg Documented By: JESSE Furosemide (Furosemide 40 Mg Tablet) 40 mg PO DAILY [facility]; Protocol Last Admin: 01/25/25 08:23 Dose: 40 mg Documented By: JESSE Heparin Sodium (Porcine) (Heparin Sodium,Porcine 5,000 Unit/Ml Vial) 5,000 unit SUBCUT Q8H [facility] Last Admin: 01/25/25 15:15 Dose: 5,000 unit Documented By: JESSE Hydromorphone HCl (Hydromorphone Hcl 2 Mg/Ml Vial) 2 mg IVPUSH Q2H PRN; Protocol PRN Reason: Pain, Severe (Pain Scale 7-10) Last Admin: 01/25/25 15:17 Dose: 2 mg Documented By: JESSE Metronidazole (Flagyl) 500 mg in 100 mls @ 100 mls/hr IV Q8H [facility] Last Infusion: 01/25/25 16:20 Dose: Infused Documented By: JESSE Amiodarone HCl 900 mg/ Sodium (Chloride) 518 mls @ 34.533 mls/hr IVCONT .Q15H1M [facility]; Protocol Last Admin: 01/25/25 10:07 Dose: Not Given Documented By: JESSE Non-Admin Reason: IV Running Nutrition (Parenteral) (Parenteral Nutrition) 1,680 mls @ 70 mls/hr IV .Q24H [facility]; Protocol Stop: 01/25/25 20:59 Last Admin: 01/24/25 22:23 Dose: 70 mls/hr Documented By: EUSEBIO Vancomycin HCl 750 mg/ Sodium (Chloride) 265 mls @ 265 mls/hr IV Q12H [facility] Last Infusion: 01/25/25 12:00 Dose: Infused Documented By: JESSE Nutrition (Parenteral) (Parenteral Nutrition) 1,680 mls @ 70 mls/hr IV .Q24H [facility]; Protocol Stop: 01/26/25 20:59 Mirtazapine (Mirtazapine 15 Mg Tablet) 15 mg PO BEDTIME [facility] Last Admin: 01/24/25 22:39 Dose: 15 mg Documented By: EUSEBIO Ondansetron HCl (Ondansetron Hcl 4 Mg/2 Ml Vial) 4 mg IVPUSH Q4H PRN PRN Reason: Nausea and Vomiting Last Admin: 01/22/25 12:31 Dose: 4 mg Documented By: BAKARI Pharmacy Consult (Consult Rx Parenteral Nutrition Ordering) 1 each MISCELLANE DAILY PRN PRN Reason: Consult order Pharmacy Consult (Consult Rx Vancomycin Dosing) 1 each MISCELLANE DAILY PRN PRN Reason: Consult order Labs 01/25/25 06:03 01/25/25 06:03 Labs: Laboratory Results - last 24 hr 01/25/25 06:03 MCV 91.5 MCH 29.4 MCHC 32.2 RDW 15.1 Plt Count 276 MPV 10.6 Immature Gran % (Auto) 4.6 H Neut % (Auto) 82.1 H Lymph % (Auto) 6.0 L [place] % (Auto) 5.9 Eos % (Auto) 1.0 Baso % (Auto) 0.4 Lymph # (Auto) 1.4 [place] # (Auto) 1.4 H Eos # (Auto) 0.2 Baso # (Auto) 0.1 Abs Immat Gran (auto) 1.10 H Absolute Neuts (auto) 19.5 H Absolute Nucleated RBC 0.000 Nucleated RBC % (auto) 0.0 Anion Gap 12 Estim Creat Clear Calc 97.8 Estimated GFR > 60 Random Glucose 134 H Calcium 8.1 L Phosphorus 2.6 L Magnesium 2.1 Total Bilirubin 0.7 AST 32 H ALT < 6 Alkaline Phosphatase 88 Total Protein 7.0 Albumin 2.2 L Procedures Date of Service Date of Service: 01/25/25 Progress Note: A&P Assessment and plan (1) Abscess of female pelvis: Status: Acute Assessment and Plan: pt improved today - wbc better feels better - still with some limited po and tpn and iv amio and zosyn flagyl vanco caspofungin - pt is still waiting to be trasnferered to [facility] - she has been accepted just waiting for bed for further intevention valentin HARRIS. pt understands and agrees with the plan Time Spent With Patient Time: Total time managing care of this patient today ____ minutes. Quality Stroke Does the patient have a stroke diagnosis?: No VTE Prior VTE?: No VTE Risk Level:: Medical - moderate - high VTE Device Contraindication: N/A - Device Ordered VTE Drug Contraindication: N/A - Med Ordered
[2025-01-25 19:16] VITALS: BP 146/71; PULSE 90; RESP 17; TEMP 36.5; O2SAT 95
[2025-01-25] MEDS: Amiodarone HCL 900 MG in 0.9 % Sodium Chloride 500 ML 17.27 MG IVCONT (20:36)
== END 2025-01-25 21:02 | disposition short-term general hospital (02) | DRG 862 ==
LOC: HO.ED 14:04 → HO.EDOVER 14:24 → HO.ICU 14:44 → HO.IMC 01-19 10:07
PROVIDERS: Internal Medicine; Nurse Practitioner Family; Physician Assistant; Physician Assistant Surgical; Student in an Organized Health Care Education/Training Program; Surgery; Admitting Provider Internal Medicine Pulmonary Disease; Emergency Provider Emergency Medicine; PCP Internal Medicine; Visit Provider Surgery
DX: T81.43XA Infection following a procedure, organ and space surgical site, initial encounter (principal); A41.9 Sepsis, unspecified organism; I50.33 Acute on chronic diastolic (congestive) heart failure; R65.21 Severe sepsis with septic shock; K65.1 Peritoneal abscess; J96.01 Acute respiratory failure with hypoxia; I48.92 Unspecified atrial flutter; I48.91 Unspecified atrial fibrillation; Y83.8 Other surgical procedures as the cause of abnormal reaction of the patient, or of later complication, without mention of misadventure at the time of the procedure; Z20.822 Contact with and (suspected) exposure to COVID-19; N32.89 Other specified disorders of bladder; D64.9 Anemia, unspecified; Z93.2 Ileostomy status; I25.10 Atherosclerotic heart disease of native coronary artery without angina pectoris; Z87.891 Personal history of nicotine dependence; Z79.51 Long term (current) use of inhaled steroids; Z79.899 Other long term (current) drug therapy
CPT/HCPCS: 0241U; 36415; 71045; 74177; 80048; 80053; 80202; 81001; 82272; 82803; 83605; 83690; 83735; 83880; 84100; 84443; 84478; 85007; 85025; 85027; 86850; 86900; 86901; 86923; 87040; 87070; 87073; 87077; 87185; 87186; 87205; 93005; 93306; 94660; 97110; 97116; 97162; 99285; J0131; J0282; J0283; J0637; J0692; J1171; J1644; J1836; J1885; J1938; J2405; J2470; J2543; J3010; J3360; J3370; J3475; J3480; J7120; P9016; P9047; Q9957; Q9967

== ENCOUNTER → 2025-01-15 09:54 | Outpatient (BNV) | payer MEDICARE, SELFPAY | PROVIDERS: Emergency Provider Emergency Medicine; PCP Internal Medicine; Visit Provider Radiology Diagnostic Radiology | DX: R10.9 Unspecified abdominal pain (principal); R11.2 Nausea with vomiting, unspecified | CPT/HCPCS: 74177 ==

== ENCOUNTER 2025-01-15 14:06 | Outpatient (BNV) | payer MEDICARE, SELFPAY | END 2025-01-24 10:45 | PROVIDERS: Admitting Provider Internal Medicine Pulmonary Disease; Emergency Provider Emergency Medicine; PCP Internal Medicine; Visit Provider Radiology Diagnostic Radiology | DX: J84.89 Other specified interstitial pulmonary diseases (principal); J90 Pleural effusion, not elsewhere classified | CPT/HCPCS: 71045 ==

== ENCOUNTER 2025-01-15 14:06 | Outpatient (BNV) | payer MEDICARE, SELFPAY | END 2025-01-23 13:56 | PROVIDERS: Admitting Provider Internal Medicine Pulmonary Disease; Emergency Provider Emergency Medicine; PCP Internal Medicine; Visit Provider Radiology Diagnostic Radiology | DX: K76.89 Other specified diseases of liver (principal); I31.39 Other pericardial effusion (noninflammatory); J90 Pleural effusion, not elsewhere classified | CPT/HCPCS: 74177 ==

== ENCOUNTER 2025-01-15 14:06 | Outpatient (BNV) | payer MEDICARE, SELFPAY | END 2025-01-23 05:05 | PROVIDERS: Admitting Provider Internal Medicine Pulmonary Disease; Emergency Provider Emergency Medicine; PCP Internal Medicine; Visit Provider Internal Medicine Cardiovascular Disease | DX: I48.91 Unspecified atrial fibrillation (principal) | CPT/HCPCS: 93010 ==

== ENCOUNTER 2025-01-15 14:06 | Outpatient (BNV) | payer MEDICARE, SELFPAY | END 2025-01-16 21:45 | PROVIDERS: Admitting Provider Internal Medicine Pulmonary Disease; Emergency Provider Emergency Medicine; PCP Internal Medicine; Visit Provider Radiology Neuroradiology | DX: J90 Pleural effusion, not elsewhere classified (principal) | CPT/HCPCS: 71045 ==

== ENCOUNTER 2025-01-15 14:06 | Outpatient (BNV) | payer MEDICARE, SELFPAY | END 2025-01-22 07:00 | PROVIDERS: Admitting Provider Internal Medicine Pulmonary Disease; Emergency Provider Emergency Medicine; PCP Internal Medicine; Visit Provider Internal Medicine Cardiovascular Disease | DX: I31.39 Other pericardial effusion (noninflammatory) (principal); I51.89 Other ill-defined heart diseases | CPT/HCPCS: 93306 ==

== ENCOUNTER 2025-01-15 14:06 | Outpatient (BNV) | payer MEDICARE, SELFPAY | END 2025-01-21 19:34 | PROVIDERS: Admitting Provider Internal Medicine Pulmonary Disease; Emergency Provider Emergency Medicine; PCP Internal Medicine; Visit Provider Internal Medicine Cardiovascular Disease | DX: I48.92 Unspecified atrial flutter (principal); I44.0 Atrioventricular block, first degree | CPT/HCPCS: 93010 ==

== ENCOUNTER 2025-01-15 14:06 | Outpatient (BNV) | payer MEDICARE, SELFPAY | END 2025-01-20 10:20 | PROVIDERS: Admitting Provider Internal Medicine Pulmonary Disease; Emergency Provider Emergency Medicine; PCP Internal Medicine; Visit Provider Radiology Diagnostic Radiology | DX: J90 Pleural effusion, not elsewhere classified (principal); J81.0 Acute pulmonary edema | CPT/HCPCS: 71045 ==

== ENCOUNTER 2025-01-15 14:06 | Outpatient (BNV) | payer MEDICARE, SELFPAY | END 2025-01-17 11:02 | PROVIDERS: Admitting Provider Internal Medicine Pulmonary Disease; Emergency Provider Emergency Medicine; PCP Internal Medicine; Visit Provider Radiology Diagnostic Radiology | DX: K65.1 Peritoneal abscess (principal) | CPT/HCPCS: 74177 ==

== ENCOUNTER → 2025-01-15 14:06 | Outpatient (BNV) | payer MEDICARE, SELFPAY | PROVIDERS: Admitting Provider Internal Medicine Pulmonary Disease; Emergency Provider Emergency Medicine; PCP Internal Medicine; Visit Provider Internal Medicine Cardiovascular Disease | DX: I48.92 Unspecified atrial flutter (principal); J81.1 Chronic pulmonary edema | CPT/HCPCS: 99223; 99232; 99233 ==

== ENCOUNTER → 2025-01-15 14:06 | Outpatient (BNV) | payer MEDICARE, SELFPAY | PROVIDERS: Admitting Provider Internal Medicine Pulmonary Disease; Emergency Provider Emergency Medicine; PCP Internal Medicine; Visit Provider Internal Medicine | DX: K65.1 Peritoneal abscess (principal); A41.9 Sepsis, unspecified organism; R65.21 Severe sepsis with septic shock; T81.43XA Infection following a procedure, organ and space surgical site, initial encounter | CPT/HCPCS: 99232 ==

== ENCOUNTER → 2025-01-15 14:06 | Outpatient (BNV) | payer MEDICARE, SELFPAY | PROVIDERS: Admitting Provider Internal Medicine Pulmonary Disease; Emergency Provider Emergency Medicine; PCP Internal Medicine; Visit Provider Nurse Practitioner Family | DX: I48.92 Unspecified atrial flutter (principal); T81.43XA Infection following a procedure, organ and space surgical site, initial encounter; A41.9 Sepsis, unspecified organism; Z93.2 Ileostomy status | CPT/HCPCS: 36556; 99499 ==

== ENCOUNTER → 2025-01-15 14:06 | Outpatient (BNV) | payer MEDICARE, SELFPAY | PROVIDERS: Admitting Provider Internal Medicine Pulmonary Disease; Emergency Provider Emergency Medicine; PCP Internal Medicine; Visit Provider Student in an Organized Health Care Education/Training Program | DX: J81.1 Chronic pulmonary edema (principal); R78.81 Bacteremia; T81.43XA Infection following a procedure, organ and space surgical site, initial encounter; K65.1 Peritoneal abscess | CPT/HCPCS: 99231; 99232; 99233; 99499 ==

== ENCOUNTER → 2025-01-15 14:06 | Outpatient (BNV) | payer MEDICARE, SELFPAY | PROVIDERS: Admitting Provider Internal Medicine Pulmonary Disease; Emergency Provider Emergency Medicine; PCP Internal Medicine; Visit Provider Surgery | DX: T81.43XA Infection following a procedure, organ and space surgical site, initial encounter (principal); K65.1 Peritoneal abscess | CPT/HCPCS: 99222; 99232; 99499 ==

== ENCOUNTER → 2025-01-15 14:06 | Outpatient (BNV) | payer MEDICARE, SELFPAY | PROVIDERS: Admitting Provider Internal Medicine Pulmonary Disease; Emergency Provider Emergency Medicine; PCP Internal Medicine; Visit Provider Internal Medicine Pulmonary Disease | DX: T81.9XXA Unspecified complication of procedure, initial encounter (principal); I25.10 Atherosclerotic heart disease of native coronary artery without angina pectoris; Z93.2 Ileostomy status; T81.43XA Infection following a procedure, organ and space surgical site, initial encounter; K65.1 Peritoneal abscess | CPT/HCPCS: 99232; 99291 ==

== ENCOUNTER 2025-02-18 19:56 | Inpatient (IN) | payer MEDICARE, SELFPAY ==
--- NOTE | ~2025-02-18 | NM_ITS ---
EXAMINATION: NM BILIARY TRACT CLINICAL INFORMATION: Mild gallbladder thickening on CT , 01/07/2025 subtotal colectomy and hernia repair, pancreatitis COMPARISON: CT from one day ago Radioparhmaceutical: 5.0 mCi technetium 99m labeled mebrofenin Other medications: 1.6 mcg CCK infused IV over 30 minutes , one hour post injection of Choletec TECHNIQUE: Hepatobiliary scintigraphy was performed after the intravenous administration of technetium 99m labeled Choletec. Imaging was performed every 2 minutes for 54 minutes at which time CCK was infused iv over 30 minutes with imaging continuing for an additional 23 minutes. Ejection fraction curve was generated with region of interest placed over the gallbladder. FINDINGS: After injection, there is prompt uptake of radiotracer by the liver. Intrahepatic biliary filling was visible by 8 minutes and gallbladder filling was visible within 14 minutes. Small bowel filming was noted within 40 minutes. After CCK infusion, ejection fraction measured 34%. NM/NM hepatobiliary w pharm IMPRESSION: Borderline biliary dyskinesia: Gallbladder Ejection fraction was 34% which is borderline low. Otherwise, there is normal filling of the gallbladder and excretion of radiotracer into the small bowel. Electronically signed by: Reese Rosado MD 02/19/2025 04:18 PM EDT
--- NOTE | ~2025-02-18 | CT_ITS ---
CLINICAL HISTORY: severe abdominal pain recent abscess hx of pancrea CT abdomen and pelvis with contrast Comparison: CT/FL/SR - CT ABDOMEN PELVIS W IV CON - 01/23/25 13:56 EDT Findings: Mild motion artifact present. Minimal right pleural effusion partially visualized. Trace subsegmental atelectasis versus scarring present at the lingula. There is subtle nodularity of the hepatic contour. The liver appears normal in size. Minimal fluid identified along the right lateral margin of the liver on axial image number 19 of series 3, decreased in conspicuity as compared to the prior exam. The gallbladder does not appear significantly distended. Vague radiopaque material present dependently within the gallbladder lumen which may represent vicarious excretion of contrast or biliary sludge. There is mild gallbladder wall thickening. The spleen and bilateral adrenal glands are within normal limits for appearance. There is diffuse peripancreatic fat stranding/edema. No organized peripancreatic fluid collections are visualized. No hydronephrosis or hydroureter. No bowel obstruction. Mildly limited evaluation of the stomach related to gastric underdistention. There is mild gastric wall thickening. Small bowel wall thickening identified throughout the abdomen. Ostomy in place at the right anterior abdominal wall. The colon is not visualized, presumed surgically absent. Mild fluid is identified within the rectal lumen. A small amount of gas is present within the anterior abdominal wall soft tissues of the midline. Ill-defined 1.8 x 4.4 cm gas and fluid collection present within the anterior abdominal wall soft tissues on axial image number 66 of series 3. 4.9 x 2.0 cm fluid collection present at the right lower abdominal quadrant near the ostomy site, visualized on coronal image number 27 of series 7. Pelvic contents unremarkable. Vein 4.0 x 2.6 cm fluid collection identified along the superior margin of the uterine fundus on axial image number 60 of series 3. No bladder wall thickening. Surgically absent appendix. No acute fracture visualized. IMPRESSION: 1. Small volume gas identified within the anterior abdominal wall soft tissues of the midline, which may represent postoperative change and/or a wound. There is a 1.8 x 4.4 cm gas and fluid collection of the anterior abdominal wall soft tissues near the midline which may represent a phlegmon or abscess. 2. Multiple peripherally enhancing collections redemonstrated within the abdomen along the right lateral margin of the liver, of the right lower abdominal quadrant deep to the ostomy site, and along the superior margin of the uterine fundus. Overall, these collections appear decreased in size as compared to the prior examination, suggesting interval improvement in abscesses. 3. Diffuse edema present throughout the intra-abdominal compartment which may be related to postoperative and/or inflammatory change. 4. Vicarious excretion of contrast versus biliary sludge dependently within the gallbladder lumen. There is mild gallbladder wall thickening. This may represent a reactive finding. Acute cholecystitis is not entirely excluded. May consider gallbladder ultrasound examination and/or nuclear medicine HIDA scan for further evaluation. 5. Diffuse peripancreatic edema. Recommend clinical correlation with laboratory values to evaluate for underlying pancreatitis. 6. Mildly limited evaluation of the stomach related to gastric underdistention. There is gastric wall thickening with multifocal small bowel wall thickening throughout the abdomen, possibly related to generalized 3rd spacing of fluid or a gastro enteritis. No bowel obstruction appreciated. 7. Minimal right pleural effusion partially visualized. This document has been electronically signed by: Deep Neely MD on 02/18/2025 23:25:45
[2025-02-18 20:00] VITALS: BP 144/96; PULSE 106; O2SAT 99
--- NOTE | 2025-02-18 20:01 | ED_ITS ---
HPI - Abdominal Pain General Chief Complaint: Abdominal Pain Stated Complaint: abd pain Time Seen by Provider: 02/18/25 19:58 Source: patient, EMS and old records reviewed Mode of arrival: EMS Limitations: no limitations History of Present Illness ED Provider: JAKY OJEDA narrative: 64 yo female with PMH of diastolic CHF, idiopathic pancreatitis, CAD, IBS, s/p subtotal colectomy and hernia repair at [facility] on 01/07/25 with ileostomy. She was just seen and hospitalized here 01/20 to 01/25 for pulm edema/pericardial effusion, anemia s/p 1UPRBC, new onset aflutter, intra-abdominal abscess with fineglogia Magna Bacteremia - surgery involved and patient on zosyn and flagyl - she was transferred on 01/25 to [facility] after failure of conservative treatment and worsening pleural effusions and abscess on CT scan. She notes at [facility] she was on antibiotics for a month and was just released yesterday. She states she started to feel worse when she got home with n/v severe epigastric pain radiating to the back. No fevers, she has chronic ileostomy with loose stools. She notes she tried 4mg oral dilaudid at 4pm with no relief. She notes she took her eliquis today for the first time. She states this reminds her of her pancreatitis she has had before post illness going back to 2004 and 2006. She states they never figured out the cause. MD elicited complaint: abdominal pain Pertinent past history: other Onset (ago): day(s) (just started this AM) Pain Consistency: constant Location: epigastric Severity: severe Quality: stabbing Radiation: back Migration to: no migration Exacerbating factors: vomiting and movement Relieving factors: nothing Context: history of similar episodes Associated symptoms: nausea and vomiting Treatments prior to arrival: prescription analgesics Related Data Home Medications ?Medication ?Instructions ?Recorded ?Confirmed calcium 600 mg (as 1 tab PO DAILY 11/30/23 01/15/25 carbonate)-vitamin D3 5 mcg (200 unit) tablet (Calcium 600 + D(3)) mirtazapine 15 mg tablet 15 mg PO BEDTIME 11/30/23 01/15/25 acetaminophen 325 mg tablet 650 mg PO Q12H PRN Pain 01/07/24 01/15/25 (Tylenol) multivitamin with minerals-folic 1 tab PO DAILY 01/07/24 01/15/25 acid 200 mcg chewable tablet (Multivitamin Gummies) carisoprodol 350 mg tablet 350 mg PO BEDTIME 03/19/24 01/15/25 magnesium glycinate 800 mg PO DAILY 03/19/24 01/15/25 B-complex with vitamin C 1 tab PO DAILY 01/15/25 01/15/25 fluticasone propionate 50 1 spray intranasal DAILY 01/15/25 01/15/25 mcg/actuation nasal spray,suspension hydrochlorothiazide 25 mg tablet 25 mg PO DAILY 01/15/25 01/15/25 hydromorphone 2 mg tablet 2 - 4 mg PO Q3H PRN pain 01/15/25 01/15/25 ibuprofen 200 mg tablet 400 mg PO Q6H PRN Pain 01/15/25 01/15/25 losartan 25 mg tablet 25 mg PO DAILY 01/15/25 01/15/25 ondansetron 4 mg disintegrating 4 mg PO Q8H PRN Nausea And Vomiting 01/15/25 01/15/25 tablet potassium chloride 10 mEq 10 meq PO DAILY 01/15/25 01/15/25 tablet,extended release Previous Rx's ?Medication ?Instructions ?Recorded esomeprazole magnesium 20 mg 20 mg PO DAILY #30 caps 01/16/24 capsule,delayed release (Nexium) carvedilol 6.25 mg tablet (Coreg) 6.25 mg PO BID 90 days #180 tabs 10/17/24 atorvastatin 20 mg tablet 20 mg PO BEDTIME #90 tabs 11/04/24 Allergies Allergy/AdvReac Type Severity Reaction Status Date / Time clams Allergy Severe Stomach Verified 02/18/25 20:17 Upset clavulanic acid [Augmentin] Allergy Unknown GI, Verified 02/18/25 20:17 Difficulty breathing codeine [CODEINE] Allergy Unknown SENSITIVIT Verified 02/18/25 20:17 Y erythromycin base Allergy Unknown GI, DIFF Verified 02/18/25 20:17 [Erythromycin Base] BREATHING Sulfa (Sulfonamide Allergy Unknown RASH Verified 02/18/25 20:17 Antibiotics) morphine [MORPHINE] AdvReac Severe NAUSEA Verified 02/18/25 20:17 aspirin [Aspirin] AdvReac Mild STOMACH Verified 02/18/25 20:17 UPSET melatonin AdvReac Vomiting Verified 02/18/25 20:17 Review of Systems Review of Systems Constitutional : No Weight loss, No Fever, No Chills ENT/Mouth : No sore throat, No Rhinorrhea Eyes: No Swelling, No Redness Cardiovascular : No Chest Pain, No SOB, No Edema Respiratory : No Cough, No Sputum, No Wheezing Gastrointestinal : Positive Nausea, Positive Vomiting, no Diarrhea, positive abdominal Pain, No Hematochezia, No Melena Genitourinary : No Dysuria, No Urinary Frequency, No Hematuria, No Urgency Musculoskeletal : No joint pain, No Myalgias, No Joint Swelling Skin : No Skin Lesions, No rash Neuro : No Weakness, No Numbness, No Dizziness, No Headache All other systems reviewed and are negative. [facility] Past Medical History Attestation statement: The following information was validated with the patient. Source: old records reviewed Medical History Insomnia Bilateral knee pain Polyarthralgia MARKIE (acute kidney injury) Back pain Arthritis History of transfusion of packed red blood cells Anemia Cardiomyopathy MARKIE (acute kidney injury) MARKIE (acute kidney injury) Anxiety Small bowel obstruction Myocardial infarction NSTEMI (non-ST elevated myocardial infarction) NSVT (nonsustained ventricular tachycardia) PVC (premature ventricular contraction) Hypertension Perforated diverticulum Irritable bowel syndrome with constipation Barretts esophagus GERD (gastroesophageal reflux disease) Surgical History S/P colon resection PIC line (peripherally inserted central catheter) removal History of low anterior resection of rectum Status post cardiac catheterization Ileostomy in place H/O dilation and curettage History of exploratory laparotomy (05/11/23) S/P colostomy Colovesical fistula History of esophagogastroduodenoscopy (EGD) Hx of colonoscopy Family History Family History Father Colon cancer Congestive heart failure Paternal Aunt Colon cancer Mother Congestive heart failure Afib Social History Social History Household Members: None Housing: House Are you a primary residential care facility manager to a significant other at home: No Do you presently have visiting nurse or other home services: Yes ([facility]) Alcohol intake: never Comment: located near nursing station Patient Tobacco Use Status: Former Tobacco user Tobacco use type: Cigarette Cigarette Packs Per Day: 0.5 Cigarettes Per Day: 10.0 Years Smoked: 25 e-Cigarette/Vaping Use: Former Use Second Hand Smoke Exposure: No Substance Use Type: Marijuana Advance Directives: Yes Advance Directives on File: Yes Advance Directives Date on File: 12/29/23 Do you have a plan to hurt others: No Plan service: No Cognitive needs: No Hearing needs: No Vision needs: Yes Physical Exam ED Vital Signs: Vital Signs - 24 hr 02/18/25 20:14 02/18/25 22:04 02/19/25 00:05 Temperature 97.9 F 97.8 F 97.2 F Pulse Rate 94 85 91 Respiratory Rate 16 16 15 Blood Pressure 124/78 103/68 118/71 Pulse Oximetry 98 97 97 Oxygen Delivery Method Room Air Room Air Room Air BMI result Body Mass Index 32.0 Appearance: Alert. Oriented X3. No acute distress. Eyes: Pupils equal, round and reactive to light. ENT: Pharynx mildly dry MM Neck: Normal inspection. Neck supple. CVS: Normal heart rate and rhythm. Pulses normal. Respiratory: No respiratory distress. Breath sounds normal. Abdomen: soft but with multiple incisions noted and superficial less than 3cm hematomas that are soft and mobile on abd wall. I do not appreciate redness, yellow drainage, her ostomy is pink and productive, she reports severe ttp epigastric area but no rebound, she is not guarding. Skin: Skin warm and dry. pale skin color. Normal skin turgor. Extremities: No lower extremity edema. hematoma noted to RUE inner bicep Neuro: Oriented X 3. No motor deficit. No sensory deficit. CN2-12 intact Course Course Course Narrative: possible infection suspected 1136pm will start on zosyn discussed with hospitalist who wanted her transferred to [facility] - the patient adamantly refuses transfer. Dr. Dorantes aware and will admit 1219am Medical Decision Making Medical Decision Making MDM Narrative: 64 yo female with PMH of diastolic CHF, idiopathic pancreatitis, CAD, IBS, s/p subtotal colectomy and hernia repair at [facility] on 01/07/25 with ileostomy. She was just seen and hospitalized here 01/20 to 01/25 for pulm edema/pericardial effusion, anemia s/p 1UPRBC, new onset aflutter, intra-abdominal abscess with fineglogia Magna Bacteremia now here with worsening epigastric pain and n/v starting this afternoon. She just got out of [facility] today after admission on 01/26. She will need labs, EKG, IV pain control, CT scan to evaluate for possible fluid collections, PUD, abd wall hematoma, SBO, gastritis, pancreatitis Differential Diagnosis Differential Diagnoses: The differential diagnosis associated with the presentation includes pancreatitis, PUD, abdominal wall hematoma, SBO, gastritis, recurrent intra abd fluid collection Admission/Observation Consideration of admission/observation: Escalation of care including admission/observation considered admit for further work up and management Consult Healthcare Provider Management of the patient was discussed with: Hospitalist (declines admit) and Senior Care Provider Dr. Dorantes admit as pancreatitis she is well aware of the patient. Lab Data MDM Lab Attestation statement: I reviewed the patient's lab results. 02/18/25 20:18 02/18/25 20:18 Labs: Lab Results 02/18/25 Range/Units 20:18 WBC 14.2 H (4.8-10.8) X10*3/uL RBC 3.34 L (4.20-5.50) X10*6/uL Hgb 9.9 L (12.0-16.0) g/dl Hct 31.5 L D (37.0-47.0) % MCV 94.3 (80.0-98.0) fL MCH 29.6 (27.0-33.0) pg MCHC 31.4 (31.0-35.0) g/dl RDW 17.5 H (11.0-16.0) % Plt Count 307 (160-400) X10*3/uL MPV 9.7 (9.4-12.3) fL Immature Gran % (Auto) 0.5 H (0.0-0.4) % Neut % (Auto) 78.4 H (45-73) % Lymph % (Auto) 12.7 L (20-40) % [place] % (Auto) 6.4 (2-11) % Eos % (Auto) 1.4 (0-4) % Baso % (Auto) 0.6 (0-2) % Lymph # (Auto) 1.8 (1.2-4.9) X10*3/uL [place] # (Auto) 0.9 (0.1-1.2) X10*3/uL Eos # (Auto) 0.2 (0.0-0.4) X10*3/uL Baso # (Auto) 0.1 (0.0-0.2) X10*3/uL Abs Immat Gran (auto) 0.07 H (0.00-0.03) X10*3/uL Absolute Neuts (auto) 11.2 H (2.0-8.3) x10*3/uL Absolute Nucleated RBC 0.000 (0.0-0.012) X10*3/uL Nucleated RBC % (auto) 0.0 (0.0-0.2) /100WBC PT 25.7 H (10.9-12.4) SEC INR 2.2 H (0.9-1.1) Sodium 133 L (135-145) mmol/L Potassium 3.7 (3.3-5.1) mmol/L Chloride 103 (96-108) mmol/L Carbon Dioxide 21 L (22-29) mmol/L Anion Gap 13 (12-20) BUN 13 (9-16) mg/dL Creatinine 0.74 (0.5-1.4) mg/dL Estim Creat Clear Calc 72.9 Estimated GFR > 60 Random Glucose 100 (60-115) mg/dL Lactic Acid 1.0 (0.5-2.0) mmol/L Calcium 8.8 D (8.4-10.2) mg/dL Magnesium 1.5 L (1.6-2.6) mg/dL Total Bilirubin 0.5 (0.0-1.0) mg/dL Direct Bilirubin 0.3 (0.0-0.5) mg/dL AST 65 H (5-31) U/L ALT 11 (0-31) U/L Alkaline Phosphatase 90 (39-117) U/L Troponin I High Sens 7.6 D (<3.5-17.0) ng/L C-Reactive Protein 1.43 H (< or = 0.50) mg/dL B-Natriuretic Peptide 111 H (<100) pg/mL Total Protein 8.9 H (6.5-8.0) g/dL Albumin 3.0 L (3.5-5.0) g/dL Lipase 298 H (8-78) U/L Independent Interpretation I performed an independent interpretation of an: EKG and CT Scan (multiple abnormal findings. ) Interpretation: Rate: 90 Rhythm: NSR [place]: normal Normal P waves. Normal AMADA. Normal QRS complex. ST T wave : no MANOJ, nonspecific ST Twave changes ant leads qTC: 455 prior studies: no change from prior The study has been interpreted contemporaneously by me. . Radiology Impression Discussion of test interpretation with radiology: I have reviewed the radiologist's reading. Independent Historian Clinical information obtained from an independent historian. History obtained from or confirmed by: EMS External Record Review External record reviewed: Inpatient record and Outpatient record Medications Administered Generic Name Dose Route Start Last Admin Trade Name Freq PRN Reason Stop Dose Admin Lactated Ringer's 1,000 mls @ 80 mls/hr 02/18/25 23:45 02/19/25 00:13 Lr IVCONT 80 mls/hr .[id number] ARISTIDES Administration Discontinued Medications Generic Name Dose Route Start Last Admin Trade Name Freq PRN Reason Stop Dose Admin Hydromorphone HCl 1 mg 02/18/25 20:12 02/18/25 20:49 Hydromorphone Hcl 1 Mg/Ml Syringe IVPUSH 02/18/25 20:13 1 mg ONCE ONE Administration Protocol Hydromorphone HCl 1 mg 02/19/25 00:02 02/19/25 00:09 Hydromorphone Hcl 1 Mg/Ml Syringe IVPUSH 02/19/25 00:03 1 mg ONCE ONE Administration Protocol Magnesium Sulfate 2 gm in 50 mls @ 25 mls/hr 02/18/25 20:56 02/18/25 23:33 Magnesium Sulfate/H2o IV 02/18/25 22:55 Infused ONCE ONE Infusion Piperacillin Sod/Tazobactam 50 mls @ 100 mls/hr 02/18/25 23:36 02/19/25 00:00 Sod 3.375 gm/ Sodium Chloride IV 02/19/25 00:05 100 mls/hr ONCE ONE Administration Iohexol 85 ml 02/18/25 22:53 02/18/25 22:54 Iohexol 350 Mg/Ml 100 Ml Infus..Btl IV 02/18/25 22:54 85 ml ONCE ONE Administration Ondansetron HCl 4 mg 02/18/25 20:12 02/18/25 20:48 Ondansetron Hcl 4 Mg/2 Ml Vial IVPUSH 02/18/25 20:13 4 mg ONCE ONE Administration Ondansetron HCl 4 mg 02/19/25 00:02 02/19/25 00:07 Ondansetron Hcl 4 Mg/2 Ml Vial IVPUSH 02/19/25 00:03 4 mg ONCE ONE Administration Critical Care Time Critical Care Time Critical Care Time: Yes Total Critical Care Time: 60 Attestation: Time is exclusive of separately billable procedures. Time includes: direct patient care, patient reassessment, coordination of patient care, interpretation of data (laboratory data, pulse oximetry, CT scans), review of patient's medical records, medical consultation and documentation of patient care. Repeat IV dilaudid with improvement in pain, repletion and IV magnesium. Procedures excluded from critical care time: electrocardiography. Discharge Plan Discharge Clinical Impression: Hypomagnesemia Pancreatitis Qualifiers: Chronicity: acute Pancreatitis type: unspecified pancreatitis type Acute pancreatitis complication: no infection or necrosis Qualified Code(s): K85.90 - Acute pancreatitis without necrosis or infection, unspecified Patient Disposition: Admitted As Inpatient
--- NOTE | 2025-02-18 20:06 | ECG_ITS ---
Test Reason : WEAKNESS Blood Pressure : */* mmHG Vent. Rate : 90 BPM Atrial Rate : 90 BPM P-R Int : 148 ms QRS Dur : 58 ms QT Int : 372 ms P-R-T Axes : 28 9 37 degrees QTcB Int : 455 ms Normal sinus rhythm Nonspecific ST and T wave abnormality Abnormal ECG When compared with ECG of 23-Jan-2025 05:05, Sinus rhythm has replaced Atrial fibrillation ST now depressed in Inferior leads Nonspecific T wave abnormality, improved in Inferior leads T wave inversion less evident in Lateral leads Referred By: Daniela Vickers Electronically Signed By: Russell Hummel
[2025-02-18 20:14] VITALS: BP 124/78; PULSE 94; RESP 16; TEMP 36.6; O2SAT 98; BMI 32.0
[2025-02-18 20:26] LABS: Basophils Absolute Auto 0.1 X10*3/uL (0.0-0.2); Basophils Percent Auto 0.6 % (0-2); Eosinophils Absolute Auto 0.2 X10*3/uL (0.0-0.4); Eosinophils Percent Auto 1.4 % (0-4); Hematocrit 31.5 % (37.0-47.0); Hemoglobin 9.9 g/dl (12.0-16.0); Imm Gran Abs Auto 0.07 X10*3/uL (0.00-0.03); Imm Gran Pct Auto 0.5 % (0.0-0.4); Lymphocytes Absolute Auto 1.8 X10*3/uL (1.2-4.9); Lymphocytes Percent Auto 12.7 % (20-40); MANUAL DIFF FLAG NO; Mean Corpuscular HGB Conc 31.4 g/dl (31.0-35.0); Mean Corpuscular Hemoglobin 29.6 pg (27.0-33.0); Mean Corpuscular Volume 94.3 fL (80.0-98.0); Mean Platelet Volume 9.7 fL (9.4-12.3); Monocytes Absolute Auto 0.9 X10*3/uL (0.1-1.2); Monocytes Percent Auto 6.4 % (2-11); Neutrophils Absolute Auto 11.2 x10*3/uL (2.0-8.3); Neutrophils Percent Auto 78.4 % (45-73); Platelet Count 307 X10*3/uL (160-400); Red Blood Count 3.34 X10*6/uL (4.20-5.50); Red Cell Distribution Width 17.5 % (11.0-16.0); White Blood Count 14.2 X10*3/uL (4.8-10.8)
[2025-02-18 20:31] LABS: INTERNATIONAL NORM RATIO 2.2 (0.9-1.1); Prothrombin Time 25.7 SEC (10.9-12.4)
[2025-02-18] MEDS: ondansetron HCL 4 MG/2 ML VIAL IVPUSH (20:48)
[2025-02-18 20:49] LABS: Alanine Aminotransferase 11 U/L (0-31); Alkaline Phosphatase 90 U/L (39-117); Anion Gap 13 (12-20); Aspartate Amino Transferase 65 U/L (5-31); Bilirubin Direct 0.3 mg/dL (0.0-0.5); Bilirubin Total 0.5 mg/dL (0.0-1.0); Blood Urea Nitrogen 13 mg/dL (9-16); C Reactive Protein 1.43 mg/dL (< or = 0.50); Calcium 8.8 mg/dL (8.4-10.2); Carbon Dioxide 21 mmol/L (22-29); Chloride 103 mmol/L (96-108); Creatinine Clr Calc Pharmacy 72.9; Estimated Glomerular Filt Rate > 60; Glucose Random 100 mg/dL (60-115); Lipase 298 U/L (8-78); Magnesium 1.5 mg/dL (1.6-2.6); Potassium 3.7 mmol/L (3.3-5.1); Sodium 133 mmol/L (135-145); Total Protein 8.9 g/dL (6.5-8.0)
[2025-02-18] MEDS: HYDROmorphone HCl 1 MG/ML SYRINGE IVPUSH (20:49)
[2025-02-18 20:53] LABS: B Type Natriuretic Peptide 111 pg/mL (<100)
--- NOTE | 2025-02-18 20:57 | PC.NURSE ---
Pt changed over into hospital attire, Iv placed, labs collected and sent, Provider into assess pt.
[2025-02-18 20:58] LABS: Troponin-I High Sensitivity 7.6 ng/L (<3.5-17.0)
[2025-02-18] MEDS: Magnesium Sulfate/H2O 2 GM/50 ML PIGGYBACK IV (21:05)
[2025-02-18 22:04] VITALS: BP 103/68; PULSE 85; RESP 16; TEMP 36.6; O2SAT 97
--- NOTE | 2025-02-18 22:05 | MHC.EDTECH ---
pt's needs were met, vitals obtained, call beyer within reach
--- NOTE | 2025-02-18 22:53 | PC.NURSE ---
pt back from CT Scan, warm blanket given.
[2025-02-18] MEDS: iohexoL 350 MG/ML 100 ML INFUS..BTL 85 ML IV (22:54)
[2025-02-19] VITALS (7 sets, daily range): BP systolic 107–135; BP diastolic 67–76; PULSE 78–93; RESP 14–18; TEMP 36.2–37.4; O2SAT 96–99; BMI 27.3
[2025-02-19] MEDS: ondansetron HCL 4 MG/2 ML VIAL IVPUSH ×3 (00:07→17:24)
[2025-02-19] MEDS: HYDROmorphone HCl 1 MG/ML SYRINGE IVPUSH ×4 (00:09→17:25)
[2025-02-19] MEDS: Lactated Ringers 1,000 ML 80 ML IVCONT ×2 (00:13→08:32)
--- NOTE | 2025-02-19 00:20 | PC.NURSE ---
medicated per mar.
[2025-02-19] MEDS: Dextrose 5 % and 0.45 % NaCl 1,000 ML 100 ML IVCONT (01:16)
--- NOTE | 2025-02-19 01:50 | PM.IMHP ---
History of Present Illness Date of Service: 02/19/25 Chief Complaint: Abdominal pain 65-year-old female with a past medical history of HTN, HLD, CAD, CHF, a flutter on Eliquis, IBS, history of pancreatitis, recent [place] [facility] [place] with resultant ileostomy bag. Followed by patient had admission to the ICU at [facility] from [id number] for pulmonary edema/pericardial effusion/anemia/new onset a flutter/intra-abdominal abscess/bacteremia-> patient was transferred to [facility] where she has abscess drained and treated conservatively, Finished a course of antibiotics and discharged home on 02/17/25. Presented back to the ER on 02/18/25 overnight with a chief complaint of abdominal pain. Patient reported that since she went home she has been having abdominal pain more so in the upper abdomen starting in the epigastrium and radiating to the back. Has been having nausea. Denies any fevers. Patient denies any diarrhea. Reports abdominal pain is 10/10 intensity and radiating to the back. Reports her surgical sites are healing well. Patient denies any urinary symptoms. Denies any chest pain or palpitations. Denies any alcohol use or tobacco use. Review of all other systems is negative except mentioned above ER course: Per ER team, patient has epigastric tenderness without guarding or rigidity. Lipase elevated to 298. CT abdomen pelvis showed findings concerning for pancreatitis/? Cholecystitis. Discussed with general surgery Dr. Dorantes who reviewed the images and mentioned that patient has an acute surgical intervention needed and admitted to medicine service. [facility] Medical History Insomnia Bilateral knee pain Polyarthralgia MARKIE (acute kidney injury) Back pain Arthritis History of transfusion of packed red blood cells Anemia Cardiomyopathy MARKIE (acute kidney injury) MARKIE (acute kidney injury) Anxiety Small bowel obstruction Myocardial infarction NSTEMI (non-ST elevated myocardial infarction) NSVT (nonsustained ventricular tachycardia) PVC (premature ventricular contraction) Hypertension Perforated diverticulum Irritable bowel syndrome with constipation Barretts esophagus GERD (gastroesophageal reflux disease) Family History Father Colon cancer Congestive heart failure Paternal Aunt Colon cancer Mother Congestive heart failure Afib Surgical History S/P colon resection PIC line (peripherally inserted central catheter) removal History of low anterior resection of rectum Status post cardiac catheterization Ileostomy in place H/O dilation and curettage History of exploratory laparotomy (05/11/23) S/P colostomy Colovesical fistula History of esophagogastroduodenoscopy (EGD) Hx of colonoscopy Social History Household Members: None Housing: House Are you a primary lpn care manager to a significant other at home: No Do you presently have visiting nurse or other home services: Yes ([facility]) Alcohol intake: never Comment: located near nursing station Patient Tobacco Use Status: Former Tobacco user Tobacco use type: Cigarette Cigarette Packs Per Day: 0.5 Cigarettes Per Day: 10.0 Years Smoked: 25 e-Cigarette/Vaping Use: Former Use Second Hand Smoke Exposure: No Substance Use Type: Marijuana Advance Directives Date on File: 12/29/23 service: No Cognitive needs: No Hearing needs: No Vision needs: Yes Meds Allergies Allergy/AdvReac Type Severity Reaction Status Date / Time clams Allergy Severe Stomach Verified 02/18/25 20:17 Upset clavulanic acid (Augmentin) Allergy Unknown GI, Verified 02/18/25 20:17 Difficulty breathing codeine (CODEINE) Allergy Unknown SENSITIVIT Verified 02/18/25 20:17 Y erythromycin base Allergy Unknown GI, DIFF Verified 02/18/25 20:17 (Erythromycin Base) BREATHING Sulfa (Sulfonamide Allergy Unknown RASH Verified 02/18/25 20:17 Antibiotics) morphine (MORPHINE) AdvReac Severe NAUSEA Verified 02/18/25 20:17 aspirin (Aspirin) AdvReac Mild STOMACH Verified 02/18/25 20:17 UPSET melatonin AdvReac Vomiting Verified 02/18/25 20:17 Active Medications: Current Medications Acetaminophen (Acetaminophen 325 Mg Tablet) 650 mg PO Q6H PRN PRN Reason: Pain, Mild 1-3,fever,headache Calcium Carbonate (Calcium Carbonate 750 Mg Tab.Chew) 750 mg PO Q4H PRN PRN Reason: Heartburn Enoxaparin Sodium (Enoxaparin Sodium 40 Mg/0.4 Ml Syringe) 40 mg SUBCUT Q24H ARISTIDES Hydromorphone HCl (Hydromorphone Hcl 0.5 Mg/0.5 Ml Syringe) 0.5 mg IVPUSH Q3H PRN; Protocol PRN Reason: Breakthrough Pain Lactated Ringer's (Lr) 1,000 mls @ 80 mls/hr IVCONT .[id number] [facility] Last Admin: 02/19/25 00:13 Dose: 80 mls/hr Dextrose/Sodium Chloride (D51/2ns) 1,000 mls @ 100 mls/hr IVCONT .Q10H [facility] Last Admin: 02/19/25 01:16 Dose: 100 mls/hr Piperacillin Sod/Tazobactam (Sod 3.375 gm/ Sodium Chloride) 50 mls @ 100 mls/hr IV Q6H [facility] Magnesium Hydroxide (Milk Of Magnesia 30 Ml Oral.Susp) 30 ml PO DAILY PRN PRN Reason: Constipation Melatonin (Melatonin 3 Mg Tablet) 6 mg PO BEDTIME PRN PRN Reason: Insomnia Metoclopramide HCl (Metoclopramide Hcl 10 Mg/2 Ml Vial) 5 mg IVPUSH Q6H PRN PRN Reason: Nausea and Vomiting Ondansetron HCl (Ondansetron Hcl 4 Mg/2 Ml Vial) 4 mg IVPUSH Q6H PRN PRN Reason: Nausea and Vomiting Sodium Chloride (0.9 % Sodium Chloride Flush 3 Ml Syringe) 3 [facility] Home Medications ?Medication ?Instructions ?Recorded ?Confirmed ?Last Taken ?Type mirtazapine 15 mg tablet 15 mg PO BEDTIME 11/30/23 02/19/25 03/19/24 09:00 History Held on 01/25/25. Instructions: Resume on 02/05/25. per MD instructions multivitamin with minerals-folic 1 tab PO DAILY 01/07/24 02/19/25 02/18/25 History acid 200 mcg chewable tablet (Multivitamin Gummies) Held on 01/25/25. Instructions: Resume on 02/05/25. per MD instructions carisoprodol 350 mg tablet 350 mg PO BEDTIME 03/19/24 02/19/25 03/19/24 09:00 History Held on 01/25/25. Instructions: Resume on 02/05/25. per MD magnesium glycinate 400 mg PO DAILY 03/19/24 02/19/25 02/18/25 History Held on 01/25/25. Instructions: Resume on 02/05/25. per MD instructions ondansetron 4 mg disintegrating 4 mg PO Q8H PRN Nausea And Vomiting 01/15/25 02/19/25 02/18/25 History tablet Held on 01/25/25. Instructions: Resume on 02/05/25. per MD instructions amiodarone 200 mg tablet 200 mg PO DAILY 02/19/25 02/19/25 02/18/25 History apixaban 5 mg tablet (Eliquis) 5 mg PO BID 02/19/25 02/19/25 02/18/25 History colchicine 0.6 mg tablet 0.6 mg PO DAILY 02/19/25 02/19/25 02/18/25 History esomeprazole magnesium 20 mg 20 mg PO DAILY@0630 02/19/25 02/19/25 02/18/25 History capsule,delayed release (Nexium) gabapentin 100 mg capsule 100 mg PO Q8H 02/19/25 02/19/25 02/18/25 History hydromorphone 2 mg tablet 1 - 2 mg PO Q8H PRN pain 02/19/25 02/19/25 02/18/25 History Physical Exam Vital Signs and Narrative: Vital Signs: Last Vital Signs Temp 97.2 F 02/19/25 00:05 Pulse 91 02/19/25 00:05 Resp 15 02/19/25 00:05 BP 118/71 02/19/25 00:05 Pulse Ox 97 02/19/25 00:05 O2 Del Method Room Air 02/19/25 00:05 BMI result Body Mass Index 32.0 Gen: Appears be in no acute distress HEENT: NCAT, Moist mucosa. Pulmonary: Vesicular breath sounds, fair air entry CVS: Normal S1-S2 Abdomen: BS+, Soft, tender in the upper abdomen more in the epigastrium and towards the right side. No guarding or rigidity. Central abdominal incision appears healing. The drain sites on the right lower abdominal are healing. Ileostomy bag in place. Extremities: Warm well perfused Neuro: Alert and awake. Results Labs 02/19/25 04:48 02/21/25 08:30 Labs: Laboratory Results - last 24 hr 02/18/25 20:18 MCV 94.3 MCH 29.6 MCHC 31.4 RDW 17.5 H Plt Count 307 MPV 9.7 Immature Gran % (Auto) 0.5 H Neut % (Auto) 78.4 H Lymph % (Auto) 12.7 L Josephine % (Auto) 6.4 Eos % (Auto) 1.4 Baso % (Auto) 0.6 Lymph # (Auto) 1.8 Josephine # (Auto) 0.9 Eos # (Auto) 0.2 Baso # (Auto) 0.1 Abs Immat Gran (auto) 0.07 H Absolute Neuts (auto) 11.2 H Absolute Nucleated RBC 0.000 Nucleated RBC % (auto) 0.0 PT 25.7 H INR 2.2 H Anion Gap 13 Estim Creat Clear Calc 72.9 Estimated GFR > 60 Random Glucose 100 Lactic Acid 1.0 Calcium 8.8 D Magnesium 1.5 L Total Bilirubin 0.5 Direct Bilirubin 0.3 AST 65 H ALT 11 Alkaline Phosphatase 90 Troponin I High Sens 7.6 D C-Reactive Protein 1.43 H B-Natriuretic Peptide 111 H Total Protein 8.9 H Albumin 3.0 L Lipase 298 H Assessment and Plan (1) Pancreatitis: Qualifiers: Acute pancreatitis complication: no infection or necrosis Chronicity: acute Pancreatitis type: unspecified pancreatitis type Qualified Code(s): K85.90 - Acute pancreatitis without necrosis or infection, unspecified Status: Acute Plan 65-year-old female with a past medical history of HTN, HLD, CAD, CHF, a flutter on Eliquis, IBS, history of pancreatitis, recent [place] [facility] with resultant ileostomy bag. Followed by patient had admission to the ICU at [facility] from 01/20-01/25 for pulmonary edema/pericardial effusion/anemia/new onset a flutter/intra-abdominal abscess/bacteremia-> patient was transferred to [facility] where she has abscess drained and treated conservatively, Finished a course of antibiotics and discharged home on 02/17/25. Presented back to the ER on 02/18/25 overnight with a chief complaint of abdominal pain. Admitted for following Abdominal pain: CT and pelvis showed peripancreatic edema concerning for pancreatitis. Also noted biliary sludge and mild gallbladder wall thickening concerning for possible acute cholecystitis. Patient has slightly elevated liver enzymes. CT and pelvis also showed 1.8x4.4 cm abdominal wall gas/fluid collection along the midline of the anterior abdominal wall-represents phlegmon/abscess. Noted multiple peripherally enhancing collections along the lateral margin seen of the liver, right lower abdominal quadrant-represent interval improvement in the abscesses Also noted findings concerning for gastroenteritis. I reviewed the case with Dr. Dorantes from General surgery who reviewed the CT scan images and mentioned no acute surgical intervention needed. Mentioned admission to the medicine service and conservative management. Plan: Will continue Dilaudid p.r.n. for pain control NPO Gentle IV fluids Continue Zosyn HIDA scan General surgery follow-up in a.m. Discontinue home hydrochlorothiazide now that also at the time of discharge. HX subtotal colectomy/hernia repair: Surgical site healing. HX ileostomy: Ileostomy care per RN Cardiomyopathy: Does not appear to be in volume overload currently. Monitor for signs of fluid overload. A flutter: Rate controlled. Continue home Eliquis Hypertension: Blood pressure on the low normal side. Will hold home antihypertensives for now DVT prophylaxis: Patient on Eliquis Code status: Full code Quality Stroke Does the patient have a stroke diagnosis?: No VTE Prior VTE?: No VTE Risk Level:: Medical - moderate - high VTE Device Contraindication: Treatment Not Indicated VTE Drug Contraindication: N/A - Med Ordered
[2025-02-19] MEDS: HYDROmorphone HCl 0.5 MG/0.5 ML SYRINGE IVPUSH ×2 (02:17→06:55)
--- NOTE | 2025-02-19 02:21 | PC.NURSE ---
Medicated for pain managements, Ice chips given
[2025-02-19 06:08] LABS: MANUAL DIFF FLAG NO
[2025-02-19 06:23] LABS: Basophils Absolute Auto 0.1 X10*3/uL (0.0-0.2); Basophils Percent Auto 0.5 % (0-2); Eosinophils Absolute Auto 0.2 X10*3/uL (0.0-0.4); Eosinophils Percent Auto 1.4 % (0-4); Hematocrit 31.4 % (37.0-47.0); Hemoglobin 9.6 g/dl (12.0-16.0); Imm Gran Abs Auto 0.07 X10*3/uL (0.00-0.03); Imm Gran Pct Auto 0.5 % (0.0-0.4); Lymphocytes Absolute Auto 1.9 X10*3/uL (1.2-4.9); Lymphocytes Percent Auto 14.7 % (20-40); Mean Corpuscular HGB Conc 30.6 g/dl (31.0-35.0); Mean Corpuscular Hemoglobin 29.3 pg (27.0-33.0); Mean Corpuscular Volume 95.7 fL (80.0-98.0); Mean Platelet Volume 9.7 fL (9.4-12.3); Monocytes Absolute Auto 1.1 X10*3/uL (0.1-1.2); Monocytes Percent Auto 8.3 % (2-11); Neutrophils Absolute Auto 9.7 x10*3/uL (2.0-8.3); Neutrophils Percent Auto 74.6 % (45-73); Platelet Count 273 X10*3/uL (160-400); Red Blood Count 3.28 X10*6/uL (4.20-5.50); Red Cell Distribution Width 17.3 % (11.0-16.0)
[2025-02-19 06:28] LABS: Alanine Aminotransferase 11 U/L (0-31); Albumin Level 2.6 g/dL (3.5-5.0); Alkaline Phosphatase 75 U/L (39-117); Anion Gap 13 (12-20); Aspartate Amino Transferase 42 U/L (5-31); Bilirubin Total 0.3 mg/dL (0.0-1.0); Blood Urea Nitrogen 11 mg/dL (9-16); Calcium 8.3 mg/dL (8.4-10.2); Carbon Dioxide 20 mmol/L (22-29); Chloride 103 mmol/L (96-108); Estimated Glomerular Filt Rate > 60; Glucose Random 108 mg/dL (60-115); Potassium 3.5 mmol/L (3.3-5.1); Sodium 132 mmol/L (135-145); Total Protein 7.6 g/dL (6.5-8.0)
[2025-02-19] MEDS: Piperacillin Sodium/Tazobactam 3.375 GM in 0.9 % Sodium Chloride 50 ML IV ×4 (06:56→17:25)
--- NOTE | 2025-02-19 07:42 | PC.NURSE ---
reached out to Dr Guallpa about which fluids he would like infusing. D50.45% was DCed. LR order continues
--- NOTE | 2025-02-19 07:47 | PC.NURSE ---
per previous shift - LR was stopped when D50.45% was ordered overnight. This RN charted it as paused at 0120. Per MD, LR should be infusing, resumed.
--- NOTE | 2025-02-19 07:55 | PM.CNGS ---
History of Present Illness Consult details Consult date: 02/19/25 Narrative: [age] year old female well known to the service. She has a complex surgical history. She previously had a Tye's procedure for colovaginal fistula in 2023. She had reversal of the colostomy which was complicated by iatrogenic injury to the vaginal cuff and had to be referred to [facility]. She underwent a subtotal colectomy with an end ileostomy Dr. Lehman last Jan, 2025. She was admitted last month here at [facility] for abdominal pain and was noted to have multiple intra-abdominal abscesses. These were deemed to be not accessible by IR so she was on IV antibiotics for several days without any significant improvement. She was therefore transferred back to [facility]. She says she spent a more than 3 weeks in the hospital there 3 drains placed by IR. She was just discharged 2 days ago from [facility] when she started to have area abdominal pain. She says she has a known history of acute pancreatitis since 2004. She says she has had multiple episodes in the past and etiology has been known. Her skin in the ER last night showed suggestion of acute pancreatitis with diffuse stranding around the pancreas. She says she has poor oral intake. She says she has some form of chronic vomiting syndrome. She is able to tolerate liquids well. Review of Systems Constitutional: Constitutional: Denies chills and Denies fever(s) Cardiovascular: Cardiovascular: Denies chest pain, Denies dyspnea and Denies dyspnea on exertion Respiratory: Respiratory: Denies cough, Denies dyspnea and Denies dyspnea on exertion Gastrointestinal: Gastrointestinal: Denies hematochezia and Denies change in bowel habits Genitourinary: Genitourinary: Denies hematuria Musculoskeletal: Musculoskeletal: Denies back pain and Denies limited range of motion Neurologic: Denies focal weakness and Denies convulsions Psychiatric: Psychiatric: Denies depression and Denies mood swings PMF Past Medical History Medical History Insomnia Bilateral knee pain Polyarthralgia MARKIE (acute kidney injury) Back pain Arthritis History of transfusion of packed red blood cells Anemia Cardiomyopathy MARKIE (acute kidney injury) MARKIE (acute kidney injury) Anxiety Small bowel obstruction Myocardial infarction NSTEMI (non-ST elevated myocardial infarction) NSVT (nonsustained ventricular tachycardia) PVC (premature ventricular contraction) Hypertension Perforated diverticulum Irritable bowel syndrome with constipation Barretts esophagus GERD (gastroesophageal reflux disease) Family History Family History Father Colon cancer Congestive heart failure Paternal Aunt Colon cancer Mother Congestive heart failure Afib Surgical History Surgical History S/P colon resection PIC line (peripherally inserted central catheter) removal History of low anterior resection of rectum Status post cardiac catheterization Ileostomy in place H/O dilation and curettage History of exploratory laparotomy (05/11/23) S/P colostomy Colovesical fistula History of esophagogastroduodenoscopy (EGD) Hx of colonoscopy Social History Social History Household Members: None Housing: House Are you a primary adult daycare coordinator to a significant other at home: No Do you presently have visiting nurse or other home services: Yes ([facility]) Alcohol intake: never Comment: located near nursing station Patient Tobacco Use Status: Former Tobacco user Tobacco use type: Cigarette Cigarette Packs Per Day: 0.5 Cigarettes Per Day: 10.0 Years Smoked: 25 e-Cigarette/Vaping Use: Former Use Second Hand Smoke Exposure: No Substance Use Type: Marijuana Advance Directives Date on File: 12/29/23 service: No Cognitive needs: No Hearing needs: No Vision needs: Yes Meds Allergies Allergy/AdvReac Type Severity Reaction Status Date / Time clams Allergy Severe Stomach Verified 02/18/25 20:17 Upset clavulanic acid (Augmentin) Allergy Unknown GI, Verified 02/18/25 20:17 Difficulty breathing codeine (CODEINE) Allergy Unknown SENSITIVIT Verified 02/18/25 20:17 Y erythromycin base Allergy Unknown GI, DIFF Verified 02/18/25 20:17 (Erythromycin Base) BREATHING Sulfa (Sulfonamide Allergy Unknown RASH Verified 02/18/25 20:17 Antibiotics) morphine (MORPHINE) AdvReac Severe NAUSEA Verified 02/18/25 20:17 aspirin (Aspirin) AdvReac Mild STOMACH Verified 02/18/25 20:17 UPSET melatonin AdvReac Vomiting Verified 02/18/25 20:17 Active Medications: Current Medications Acetaminophen (Acetaminophen 325 Mg Tablet) 650 mg PO Q6H PRN PRN Reason: Pain, Mild 1-3,fever,headache Amiodarone HCl (Amiodarone Hcl 200 Mg Tablet) 200 mg PO DAILY [facility] Apixaban (Apixaban 5 Mg Tablet) 5 mg PO BID [facility] Calcium Carbonate (Calcium Carbonate 750 Mg Tab.Chew) 750 mg PO Q4H PRN PRN Reason: Heartburn Hydromorphone HCl (Hydromorphone Hcl 0.5 Mg/0.5 Ml Syringe) 0.5 mg IVPUSH Q3H PRN; Protocol PRN Reason: Breakthrough Pain Last Admin: 02/19/25 06:55 Dose: 0.5 mg Lactated Ringer's (Lr) 1,000 mls @ 80 mls/hr IVCONT .[id number] [facility] Last Infusion: 02/19/25 07:47 Dose: 80 mls/hr Piperacillin Sod/Tazobactam (Sod 3.375 gm/ Sodium Chloride) 50 mls @ 100 mls/hr IV Q6H [facility] Last Infusion: 02/19/25 07:42 Dose: Infused Magnesium Hydroxide (Milk Of Magnesia 30 Ml Oral.Susp) 30 ml PO DAILY PRN PRN Reason: Constipation Melatonin (Melatonin 3 Mg Tablet) 6 mg PO BEDTIME PRN PRN Reason: Insomnia Metoclopramide HCl (Metoclopramide Hcl 10 Mg/2 Ml Vial) 5 mg IVPUSH Q6H PRN PRN Reason: Nausea and Vomiting Ondansetron HCl (Ondansetron Hcl 4 Mg/2 Ml Vial) 4 mg IVPUSH Q6H PRN PRN Reason: Nausea and Vomiting Sodium Chloride (0.9 % Sodium Chloride Flush 3 Ml Syringe) [facility] Last Admin: 02/19/25 07:20 Dose: Not Given Home Medications ?Medication ?Instructions ?Recorded ?Confirmed ?Last Taken ?Type mirtazapine 15 mg tablet 15 mg PO BEDTIME 11/30/23 02/19/25 03/19/24 09:00 History Held on 01/25/25. Instructions: Resume on 02/05/25. per MD instructions multivitamin with minerals-folic 1 tab PO DAILY 01/07/24 02/19/25 02/18/25 History acid 200 mcg chewable tablet (Multivitamin Gummies) Held on 01/25/25. Instructions: Resume on 02/05/25. per MD instructions carisoprodol 350 mg tablet 350 mg PO BEDTIME 03/19/24 02/19/25 03/19/24 09:00 History Held on 01/25/25. Instructions: Resume on 02/05/25. per MD magnesium glycinate 400 mg PO DAILY 03/19/24 02/19/25 02/18/25 History Held on 01/25/25. Instructions: Resume on 02/05/25. per MD instructions ondansetron 4 mg disintegrating 4 mg PO Q8H PRN Nausea And Vomiting 01/15/25 02/19/25 02/18/25 History tablet Held on 01/25/25. Instructions: Resume on 02/05/25. per MD instructions amiodarone 200 mg tablet 200 mg PO DAILY 02/19/25 02/19/25 02/18/25 History apixaban 5 mg tablet (Eliquis) 5 mg PO BID 02/19/25 02/19/25 02/18/25 History colchicine 0.6 mg tablet 0.6 mg PO DAILY 02/19/25 02/19/25 02/18/25 History esomeprazole magnesium 20 mg 20 mg PO DAILY@0630 02/19/25 02/19/25 02/18/25 History capsule,delayed release (Nexium) gabapentin 100 mg capsule 100 mg PO Q8H 02/19/25 02/19/25 02/18/25 History hydromorphone 2 mg tablet 1 - 2 mg PO Q8H PRN pain 02/19/25 02/19/25 02/18/25 History Physical Exam Vital Signs: Vital Signs: Last Vital Signs Temp 97.4 F 02/19/25 04:00 Pulse 81 02/19/25 04:00 Resp 14 02/19/25 04:00 BP 107/67 02/19/25 04:00 Pulse Ox 96 02/19/25 04:00 O2 Del Method Room Air 02/19/25 04:00 BMI result Body Mass Index 32.0 Const: General: comfortable and no acute distress Resp: Effort & Inspection: normal respiratory effort Cardio: Rate: regular rate GI: Other: Ileostomy functioning well, no redness or fluctuance Palpation (GI): Soft to palpation, not firm and Tenderness to palpation present (GI) (Some tenderness diffusely, mild) Results Labs 02/19/25 04:48 02/21/25 08:30 Labs: Abnormal lab results 02/18/25 02/19/25 Range/Units 20:18 04:48 WBC 14.2 H 13.0 H (4.8-10.8) X10*3/uL RBC 3.34 L 3.28 L (4.20-5.50) X10*6/uL Hgb 9.9 L 9.6 L (12.0-16.0) g/dl Hct 31.5 L D 31.4 L (37.0-47.0) % MCHC 30.6 L (31.0-35.0) g/dl RDW 17.5 H 17.3 H (11.0-16.0) % Immature Gran % (Auto) 0.5 H 0.5 H (0.0-0.4) % Neut % (Auto) 78.4 H 74.6 H (45-73) % Lymph % (Auto) 12.7 L 14.7 L (20-40) % Abs Immat Gran (auto) 0.07 H 0.07 H (0.00-0.03) X10*3/uL Absolute Neuts (auto) 11.2 H 9.7 H (2.0-8.3) x10*3/uL PT 25.7 H (10.9-12.4) SEC INR 2.2 H (0.9-1.1) Sodium 133 L 132 L (135-145) mmol/L Carbon Dioxide 21 L 20 L (22-29) mmol/L Calcium 8.3 L (8.4-10.2) mg/dL Magnesium 1.5 L (1.6-2.6) mg/dL AST 65 H 42 H (5-31) U/L C-Reactive Protein 1.43 H (< or = 0.50) mg/dL B-Natriuretic Peptide 111 H (<100) pg/mL Total Protein 8.9 H (6.5-8.0) g/dL Albumin 3.0 L 2.6 L (3.5-5.0) g/dL Lipase 298 H (8-78) U/L Short CBC 02/18/25 02/19/25 Range/Units 20:18 04:48 WBC 14.2 H 13.0 H (4.8-10.8) X10*3/uL Hgb 9.9 L 9.6 L (12.0-16.0) g/dl Hct 31.5 L D 31.4 L (37.0-47.0) % Plt Count 307 273 (160-400) X10*3/uL BMP 02/18/25 02/19/25 20:18 04:48 Sodium 133 L 132 L Potassium 3.7 3.5 Chloride 103 103 Carbon Dioxide 21 L 20 L BUN 13 11 Creatinine 0.74 0.65 Calcium 8.8 D 8.3 L Liver Function 02/18/25 02/19/25 Range/Units 20:18 04:48 Total Bilirubin 0.5 0.3 (0.0-1.0) mg/dL Direct Bilirubin 0.3 (0.0-0.5) mg/dL AST 65 H 42 H (5-31) U/L ALT 11 11 (0-31) U/L Alkaline Phosphatase 90 75 (39-117) U/L Albumin 3.0 L 2.6 L (3.5-5.0) g/dL All other labs normal. Imaging Abdomen CT scan report/results: report reviewed and image reviewed Assessment and Plan (1) Pancreatitis: Qualifiers: Acute pancreatitis complication: no infection or necrosis Chronicity: acute Pancreatitis type: unspecified pancreatitis type Qualified Code(s): K85.90 - Acute pancreatitis without necrosis or infection, unspecified Status: Acute Plan She has a complex surgical history of the abdomen after a colovaginal fistula. She had undergone total colectomy with an end ileostomy in [facility] last month. However, she was transferred back there postop because of intra-abdominal abscess. She spent 3 weeks in [facility] with drains She was just discharged from the hospital 2 days ago but started to have abdominal pain yesterday. Her CAT scan suggested acute pancreatitis. She does have a history of recurrent pancreatitis She can have clear liquids for now. Her ileostomy is functioning well. She looks stable overall. We will follow along closely while she is in the hospital. Her CAT scan also mentions abdominal fluid collections. She does not have any redness or fluctuance so we will monitor this closely for now. Procedures Date of Service Date of Service: 02/21/25
[2025-02-19] MEDS: Amiodarone HCL 200 MG TABLET PO (08:05)
[2025-02-19] MEDS: Apixaban 5 MG TABLET PO ×2 (08:05→20:20)
--- NOTE | 2025-02-19 08:18 | PHA.MEDREC ---
Pharmacy Consult ? Medication Reconciliation Pharmacy has completed the medication reconciliation. Patient discharged from [facility] 02/17 with list in chart, and also very knowledgeable about her medications. She did confirm that she did start all of her new meds yesterday before coming to the ED.
[2025-02-19] MEDS: Multivitamin TABLET 1 TAB PO (10:10)
[2025-02-19] MEDS: carvediloL 6.25 MG TABLET PO ×2 (10:10→20:20)
[2025-02-19] MEDS: Omeprazole 20 MG CAPSULE.DR PO (10:10)
[2025-02-19] MEDS: Gabapentin 100 MG CAPSULE PO ×2 (10:10→17:25)
[2025-02-19] MEDS: Colchicine 0.6 MG TABLET PO (10:14)
--- NOTE | 2025-02-19 10:21 | MHC.CM.PN ---
CM met with Patient at bedside, in the ED, and addressed IMM with her, providing Patient with the original and a copy will be placed on the chart. Patient lives alone in a house, uses a walker to assist with mobility, and is active with [facility](Ileostomy bags supplied by [facility]). Home/resume [facility] is Patient's goal and CM has initiated and will follow for dc planning. PCP is Dr. Joi Rebollar and HCP is Daughter/Tiffanie. Patient will call a Friend for a ride home @ time of dc.
[2025-02-19] MEDS: Metoclopramide HCl 10 MG/2 ML VIAL 5 MG IVPUSH ×2 (13:08→20:26)
[2025-02-19 13:11] LABS: Appearance Urine Turbid; Color Urine Dark Yellow; Glucose Urine UA Negative (Negative); Leukocyte Esterase Urine Negative (Negative); Nitrite Urine Negative (Negative); PH 5.5 (5.0-9.0); Specific Gravity - Urine >= 1.030 (1.005-1.025); UMIC TRIGGER UACC YES; Urine Blood Large (3+) (Negative); Urine Ketones Trace mg/dL (Negative); Urine Protein 300 (3+) mg/dL (Neg-Trace)
--- NOTE | 2025-02-19 13:16 | P.EN_ITS ---
Event Note Date of Service: 02/19/25 Event Note: Admitted this morning, seen and examined, feels better, still has some pain, vital stable 65-year-old female with a past medical history of HTN, HLD, CAD, CHF, a flutter on Eliquis, IBS, history of pancreatitis, recent [place] [facility] with resultant ileostomy bag. Followed by patient had admission to the ICU at [facility] from 01/20-01/25 for pulmonary edema/pericardial effusion/anemia/new onset a flutter/intra-abdominal abscess/bacteremia-> patient was transferred to [facility] where she has abscess drained and treated conservatively, Finished a course of antibiotics and discharged home on 02/17/25. Presented back to the ER on 02/18/25 overnight with a chief complaint of abdominal pain. Admitted for following Abdominal pain: CT and pelvis showed peripancreatic edema concerning for pancreatitis. Also noted biliary sludge and mild gallbladder wall thickening concerning for possible acute cholecystitis. Patient has slightly elevated liver enzymes. CT and pelvis also showed 1.8x4.4 cm abdominal wall gas/fluid collection along the midline of the anterior abdominal wall-represents phlegmon/abscess. --see detail of CT below Noted multiple peripherally enhancing collections along the lateral margin seen of the liver, right lower abdominal quadrant-represent interval improvement in the abscesses Also noted findings concerning for gastroenteritis. case reviewed with Dr. Dorantes from General surgery who reviewed the CT scan images and mentioned no acute surgical intervention needed. Mentioned admission to the medicine service and conservative management. Plan: Will continue Dilaudid p.r.n. for pain control start liquid diet Gentle IV fluids Continue Zosyn HIDA scan General surgery following CT of abd result 1. Small volume gas identified within the anterior abdominal wall soft tissues of the midline, which may represent postoperative change and/or a wound. There is a 1.8 x 4.4 cm gas and fluid collection of the anterior abdominal wall soft tissues near the midline which may represent a phlegmon or abscess. 2. Multiple peripherally enhancing collections redemonstrated within the abdomen along the right lateral margin of the liver, of the right lower abdominal quadrant deep to the ostomy site, and along the superior margin of the uterine fundus. Overall, these collections appear decreased in size as compared to the prior examination, suggesting interval improvement in abscesses. 3. Diffuse edema present throughout the intra-abdominal compartment which may be related to postoperative and/or inflammatory change. 4. Vicarious excretion of contrast versus biliary sludge dependently within the gallbladder lumen. There is mild gallbladder wall thickening. This may represent a reactive finding. Acute cholecystitis is not entirely excluded. May consider gallbladder ultrasound examination and/or nuclear medicine HIDA scan for further evaluation. 5. Diffuse peripancreatic edema. Recommend clinical correlation with laboratory values to evaluate for underlying pancreatitis. 6. Mildly limited evaluation of the stomach related to gastric underdistention. There is gastric wall thickening with multifocal small bowel wall thickening throughout the abdomen, possibly related to generalized 3rd spacing of fluid or a gastro enteritis. No bowel obstruction appreciated. 7. Minimal right pleural effusion partially visualized. HX subtotal colectomy/hernia repair: Surgical site healing. HX ileostomy: Ileostomy care per RN Cardiomyopathy: Does not appear to be in volume overload currently. Monitor for signs of fluid overload. A flutter: Rate controlled. Continue home Eliquis Hypertension: Blood pressure on the low normal side. Will hold home antihypertensives for now DVT prophylaxis: Patient on Eliquis Code status: Full code Time Spent With Patient Time: Total time managing care of this patient today ____ minutes.
[2025-02-19 13:19] LABS: Bacteria Urine None Seen (None Seen); WBC Urine 0-5 /HPF (0-5)
[2025-02-19 13:20] LABS: Other Crystals Urine Present
--- NOTE | 2025-02-19 17:06 | MHC.EDTECH ---
This tech did not itemize patient belongings. Belongings list not signed by previous staff member. This tech DID sign at request of charge, but did not view patient items.
--- NOTE | 2025-02-19 17:41 | PC.NURSE ---
pt arrived from ER with perez in place. illeostomy intact and assessed.
[2025-02-19] MEDS: carisoprodoL 350 MG TABLET PO (20:20)
[2025-02-19] MEDS: Mirtazapine 15 MG TABLET PO (20:20)
[2025-02-19] MEDS: Atorvastatin Calcium 20 MG TABLET PO (20:20)
[2025-02-20] VITALS (7 sets, daily range): BP systolic 87–122; BP diastolic 50–62; PULSE 67–88; RESP 16–20; TEMP 36.1–37; O2SAT 95–98
[2025-02-20] MEDS: Gabapentin 100 MG CAPSULE PO ×3 (01:16→17:08)
[2025-02-20] MEDS: Lactated Ringers 1,000 ML 80 ML IVCONT ×2 (01:16→17:09)
[2025-02-20] MEDS: Piperacillin Sodium/Tazobactam 3.375 GM in 0.9 % Sodium Chloride 50 ML IV ×4 (01:16→17:30)
[2025-02-20] MEDS: HYDROmorphone HCl 1 MG/ML SYRINGE IVPUSH ×5 (01:18→19:40)
[2025-02-20] MEDS: ondansetron HCL 4 MG/2 ML VIAL IVPUSH ×2 (01:37→08:49)
[2025-02-20] MEDS: Metoclopramide HCl 10 MG/2 ML VIAL 5 MG IVPUSH (05:56)
[2025-02-20] MEDS: Omeprazole 20 MG CAPSULE.DR PO (05:56)
[2025-02-20] MEDS: carvediloL 6.25 MG TABLET PO ×2 (08:32→20:36)
[2025-02-20] MEDS: Multivitamin TABLET 1 TAB PO (08:32)
[2025-02-20] MEDS: Colchicine 0.6 MG TABLET PO (08:33)
[2025-02-20] MEDS: Amiodarone HCL 200 MG TABLET PO (08:33)
[2025-02-20] MEDS: Apixaban 5 MG TABLET PO ×2 (08:33→20:36)
[2025-02-20] MEDS: 0.9 % Sodium Chloride Flush 3 ML SYRINGE IVFLUSH (08:33)
--- NOTE | 2025-02-20 08:45 | P.PNGS_ITS ---
Subjective Subjective Date of Service: 02/20/25 <Kannan Chappell PA-C - Last Filed: 02/20/25 10:32> 02/20/25 <Gideon Ruvalcaba MD - Last Filed: 02/20/25 10:29> Interval history: Patient continues to have pain in the upper abdomen radiating to the back, some improvement from yesterday. Endorses nausea, states this is does not as much her baseline. Denies fever, chills. Stoma output appropriate. Patient states she has dealt with pancreatitis before and knows she can have clear liquids but would prefer to avoid any diet because it increases her symptoms. States she will let us know when she feels ready to eat. <Kannan Chappell PA-C - Last Filed: 02/20/25 10:32> Physical Exam 2 Vital Signs: Vital Signs: Last Vital Signs Temp 97.0 F 02/20/25 07:49 Pulse 80 02/20/25 07:49 Resp 20 02/20/25 07:49 BP 122/59 L 02/20/25 07:49 Pulse Ox 97 02/20/25 07:49 O2 Del Method Room Air 02/20/25 07:49 BMI result Body Mass Index 27.3 <Kannan Chappell PA-C - Last Filed: 02/20/25 10:32> Const: General: comfortable and no acute distress <STAN Flores Last Filed: 02/20/25 10:32> Orientation/consciousness: patient oriented x3 <Kannan Chappell PA-C - Last Filed: 02/20/25 10:32> Resp: Effort & Inspection: normal respiratory effort and able to speak in complete sentences <Kannan Chappell PA-C - Last Filed: 02/20/25 10:32> GI: Other: ostomy site present, fuctioning appropraitely <STAN Flores Last Filed: 02/20/25 10:32> Inspection: No distended <STAN Flores Last Filed: 02/20/25 10:32> Palpation (GI): Soft to palpation, not firm, Tenderness to palpation present (GI) in the epigastrum, no guarding and not rigid <STAN Flores Last Filed: 06/19/25 10:32> Neuro: General: patient oriented x3 <Kannan Chappell PA-C - Last Filed: 02/20/25 10:32> Objective Data Active Medications Acetaminophen (Acetaminophen 325 Mg Tablet) 650 mg PO Q6H PRN PRN Reason: Pain, Mild 1-3,fever,headache Amiodarone HCl (Amiodarone Hcl 200 Mg Tablet) 200 mg PO DAILY [facility] Last Admin: 02/20/25 08:33 Dose: 200 mg Documented By: ALLIE Apixaban (Apixaban 5 Mg Tablet) 5 mg PO BID [facility] Last Admin: 02/20/25 08:33 Dose: 5 mg Documented By: ALLIE Atorvastatin Calcium (Atorvastatin Calcium 20 Mg Tablet) 20 mg PO BEDTIME [facility] Last Admin: 02/19/25 20:20 Dose: 20 mg Documented By: CARMEN Calcium Carbonate (Calcium Carbonate 750 Mg Tab.Chew) 750 mg PO Q4H PRN PRN Reason: Heartburn Carisoprodol (Carisoprodol 350 Mg Tablet) 350 mg PO BEDTIME [facility] Last Admin: 02/19/25 20:20 Dose: 350 mg Documented By: CARMEN Carvedilol (Carvedilol 6.25 Mg Tablet) 6.25 mg PO BID [facility]; Protocol Last Admin: 02/20/25 08:32 Dose: 6.25 mg Documented By: ALLIE Colchicine (Colchicine 0.6 Mg Tablet) 0.6 mg PO DAILY [facility] Last Admin: 02/20/25 08:33 Dose: 0.6 mg Documented By: ALLIE Gabapentin (Gabapentin 100 Mg Capsule) 100 mg PO Q8H [facility] Last Admin: 02/20/25 08:32 Dose: 100 mg Documented By: ALLIE Hydromorphone HCl (Hydromorphone Hcl 1 Mg/Ml Syringe) 1 mg IVPUSH Q4H PRN; Protocol PRN Reason: Breakthrough Pain Last Admin: 02/20/25 06:02 Dose: 1 mg Documented By: JOSE Piperacillin Sod/Tazobactam (Sod 3.375 gm/ Sodium Chloride) 50 mls @ 100 mls/hr IV Q6H [facility] Last Admin: 02/20/25 07:15 Dose: 100 mls/hr Documented By: CARMEN Lactated Ringer's (Lr) 1,000 mls @ 80 mls/hr IVCONT .[id number] [facility] Last Admin: 02/20/25 01:16 Dose: 80 mls/hr Documented By: CARMEN Magnesium Hydroxide (Milk Of Magnesia 30 Ml Oral.Susp) 30 ml PO DAILY PRN PRN Reason: Constipation Melatonin (Melatonin 3 Mg Tablet) 6 mg PO BEDTIME PRN PRN Reason: Insomnia Metoclopramide HCl (Metoclopramide Hcl 10 Mg/2 Ml Vial) 5 mg IVPUSH Q6H PRN PRN Reason: Nausea and Vomiting Last Admin: 02/20/25 05:56 Dose: 5 mg Documented By: JOSE Mirtazapine (Mirtazapine 15 Mg Tablet) 15 mg PO BEDTIME [facility] Last Admin: 02/19/25 20:20 Dose: 15 mg Documented By: CARMEN Multivitamins/Vitamin C (Multivitamin Tablet) 1 tab PO DAILY [facility] Last Admin: 02/20/25 08:32 Dose: 1 tab Documented By: ALLIE Omeprazole (Omeprazole 20 Mg Capsule.Dr) 20 mg PO DAILY@0630 [facility] Last Admin: 02/20/25 05:56 Dose: 20 mg Documented By: JOSE Ondansetron HCl (Ondansetron Hcl 4 Mg/2 Ml Vial) 4 mg IVPUSH Q6H PRN PRN Reason: Nausea and Vomiting Last Admin: 02/20/25 01:37 Dose: 4 mg Documented By: CARMEN Sodium Chloride (0.9 % Sodium Chloride Flush 3 Ml Syringe) 3 ml IVFLUSH QSHIFT [facility] Last Admin: 02/20/25 08:33 Dose: 3 ml Documented By: ALLIE <Kannan Chappell PA-C - Last Filed: 02/20/25 10:32> Labs CBC & Chem 7: 02/19/25 04:48 02/19/25 04:48 <Kannan Chappell PA-C - Last Filed: 02/20/25 10:32> Labs: Laboratory Results - last 24 hr 02/19/25 10:15 Urine Color Dark Yellow Urine Appearance Turbid Urine pH 5.5 Ur Specific [place] >= 1.030 H Urine Protein 300 (3+) H Urine Glucose (UA) Negative Urine Ketones Trace Urine Blood Large (3+) H Urine Nitrite Negative Ur Leukocyte Esterase Negative Urine RBC 11-20 H Urine WBC 0-5 Ur Squamous Epith Cells 3-5 Other Crystals Present Urine Bacteria None Seen Hyaline Casts 11-20 <Kannan Chappell PA-C - Last Filed: 02/20/25 10:32> Microbiology Microbiology Results: Microbiology 02/18/25 20:57 Blood Culture - Preliminary Blood - Venous No growth after 24 hours. 02/18/25 20:18 Blood Culture - Preliminary Blood - Venous No growth after 24 hours. <Kannan Chappell PA-C - Last Filed: 02/20/25 10:32> Procedures Date of Service Date of Service: 02/20/25 <Kannan Chappell PA-C - Last Filed: 02/20/25 10:32> 02/20/25 <Gideon Ruvalcaba MD - Last Filed: 02/20/25 10:29> Progress Note: A&P Assessment and plan (1) Pancreatitis: Status: Acute <Kannan Chappell PA-C - Last Filed: 02/20/25 10:32> Assessment and Plan: Says she feels significantly better overall Still having abdominal pain but much improved Good stoma output Abdomen is soft and benign On clear liquids She does not want this advanced yet Hemodynamically stable IV fluids Seen and examined independently <Gideon Ruvalcaba MD - Last Filed: 02/20/25 10:29> Assessment and Plan: 65-year-old female admitted for acute pancreatitis. Patient is overall doing well. Pain is improving, is well controlled on current regimen. She remains on clear liquid diet but electively does not want to drink anything. Patient will inform us when she is ready to trial diet. Her abdomen is soft and tender in the epigatric area. Ostomy remains patent. No indication for surgical intevention. Will continue to follow. Clear liquid diet as tolerated. ambulation as tolerated continue IV zosyn per hospitalist Recommend IV fluids due to low oral intake <Kannan Chappell PA-C - Last Filed: 02/20/25 10:32> Time Spent With Patient Time: Total time managing care of this patient today ____ minutes. <Kannan Chappell PA-C - Last Filed: 02/20/25 10:32> Quality Stroke Does the patient have a stroke diagnosis?: No <Kannan Chappell PA-C - Last Filed: 02/20/25 10:32> VTE Prior VTE?: No <Kannan Chappell PA-C - Last Filed: 02/20/25 10:32> VTE Risk Level:: Medical - moderate - high <Kannan Chappell PA-C - Last Filed: 02/20/25 10:32> VTE Device Contraindication: Treatment Not Indicated <Kannan Chappell PA-C - Last Filed: 02/20/25 10:32> VTE Drug Contraindication: N/A - Med Ordered <Kannan Chappell PA-C - Last Filed: 02/20/25 10:32>
--- NOTE | 2025-02-20 10:30 | PC.NURSE ---
Patient encouraged to get oob to chair, refusing at this time due to abdominal pain. Patient refusing at this time to have perez discontinued, stating she needs to be stronger and more ambulatory. Patient educated on risks of leaving perez catheter in place.
--- NOTE | 2025-02-20 16:21 | P.PNIM_ITS ---
Subjective Subjective Date of Service: 02/20/25 Interval History: pain is overall better today but not optimal and doensot want oral intake yet Physical Exam 2 Vital Signs: Vital Signs: Last Vital Signs Temp 98.1 F 02/20/25 15:24 Pulse 75 02/20/25 15:24 Resp 16 02/20/25 15:24 BP 89/52 L 02/20/25 15:24 Pulse Ox 98 02/20/25 15:24 O2 Del Method Room Air 02/20/25 15:24 BMI result Body Mass Index 27.3 Const: General: comfortable and no acute distress O rientation/consciousness: patient oriented x3 Resp: Effort & Inspection: normal respiratory effort and able to speak in complete sentences GI: Other: ostomy site present, fuctioning appropraitely Inspection: No distended Palpation (GI): Soft to palpation, not firm, Tenderness to palpation present (GI) in the epigastrum, no guarding and not rigid Neuro: General: patient oriented x3 Objective Data Active Medications Acetaminophen (Acetaminophen 325 Mg Tablet) 650 mg PO Q6H PRN PRN Reason: Pain, Mild 1-3,fever,headache Amiodarone HCl (Amiodarone Hcl 200 Mg Tablet) 200 mg PO DAILY [facility] Last Admin: 02/20/25 08:33 Dose: 200 mg Documented By: ALLIE Apixaban (Apixaban 5 Mg Tablet) 5 mg PO BID [facility] Last Admin: 02/20/25 08:33 Dose: 5 mg Documented By: ALLIE Atorvastatin Calcium (Atorvastatin Calcium 20 Mg Tablet) 20 mg PO BEDTIME [facility] Last Admin: 02/19/25 20:20 Dose: 20 mg Documented By: CARMEN Calcium Carbonate (Calcium Carbonate 750 Mg Tab.Chew) 750 mg PO Q4H PRN PRN Reason: Heartburn Carisoprodol (Carisoprodol 350 Mg Tablet) 350 mg PO BEDTIME [facility] Last Admin: 02/19/25 20:20 Dose: 350 mg Documented By: CARMEN Carvedilol (Carvedilol 6.25 Mg Tablet) 6.25 mg PO BID [facility]; Protocol Last Admin: 02/20/25 08:32 Dose: 6.25 mg Documented By: ALLIE Colchicine (Colchicine 0.6 Mg Tablet) 0.6 mg PO DAILY [facility] Last Admin: 02/20/25 08:33 Dose: 0.6 mg Documented By: ALLIE Gabapentin (Gabapentin 100 Mg Capsule) 100 mg PO Q8H [facility] Last Admin: 02/20/25 08:32 Dose: 100 mg Documented By: ALLIE Hydromorphone HCl (Hydromorphone Hcl 1 Mg/Ml Syringe) 1 mg IVPUSH Q4H PRN; Protocol PRN Reason: Breakthrough Pain Last Admin: 02/20/25 14:51 Dose: 1 mg Documented By: ALLIE Piperacillin Sod/Tazobactam (Sod 3.375 gm/ Sodium Chloride) 50 mls @ 100 mls/hr IV Q6H [facility] Last Infusion: 02/20/25 13:13 Dose: Infused Documented By: ALLIE Lactated Ringer's (Lr) 1,000 mls @ 80 mls/hr IVCONT .[id number] [facility] Last Admin: 02/20/25 10:25 Dose: Not Given Documented By: ALLIE Non-Admin Reason: IV Running Magnesium Hydroxide (Milk Of Magnesia 30 Ml Oral.Susp) 30 ml PO DAILY PRN PRN Reason: Constipation Melatonin (Melatonin 3 Mg Tablet) 6 mg PO BEDTIME PRN PRN Reason: Insomnia Metoclopramide HCl (Metoclopramide Hcl 10 Mg/2 Ml Vial) 5 mg IVPUSH Q6H PRN PRN Reason: Nausea and Vomiting Last Admin: 02/20/25 05:56 Dose: 5 mg Documented By: JOSE Mirtazapine (Mirtazapine 15 Mg Tablet) 15 mg PO BEDTIME [facility] Last Admin: 02/19/25 20:20 Dose: 15 mg Documented By: CARMEN Multivitamins/Vitamin C (Multivitamin Tablet) 1 tab PO DAILY [facility] Last Admin: 02/20/25 08:32 Dose: 1 tab Documented By: ALLIE Omeprazole (Omeprazole 20 Mg Capsule.Dr) 20 mg PO DAILY@0630 [facility] Last Admin: 02/20/25 05:56 Dose: 20 mg Documented By: JOSE Ondansetron HCl (Ondansetron Hcl 4 Mg/2 Ml Vial) 4 mg IVPUSH Q6H PRN PRN Reason: Nausea and Vomiting Last Admin: 02/20/25 08:49 Dose: 4 mg Documented By: ALLIE Sodium Chloride (0.9 % Sodium Chloride Flush 3 Ml Syringe) 3 ml IVFLUSH QSHIFT [facility] Last Admin: 02/20/25 08:33 Dose: 3 ml Documented By: ALLIE Labs 02/19/25 04:48 02/19/25 04:48 Microbiology Microbiology Results: Microbiology 02/18/25 20:57 Blood Culture - Preliminary Blood - Venous No growth after 24 hours. 02/18/25 20:18 Blood Culture - Preliminary Blood - Venous No growth after 24 hours. Assessment and Plan (1) Pancreatitis: Status: Acute Plan 65-year-old female with a past medical history of HTN, HLD, CAD, CHF, a flutter on Eliquis, IBS, history of pancreatitis, [place] [facility] with resultant ileostomy bag. Followed by patient had admission to the ICU at [facility] from 01/20-01/25 for pulmonary edema/pericardial effusion/anemia/new onset a flutter/intra-abdominal abscess/bacteremia-> patient was transferred to [facility] where she has abscess drained and treated conservatively, Finished a course of antibiotics and discharged home on 02/17/25. Presented back to the ER on 02/18/25 overnight with a chief complaint of abdominal pain. Admitted for following Abdominal pain: CT and pelvis showed peripancreatic edema concerning for pancreatitis. Also noted biliary sludge and mild gallbladder wall thickening concerning for possible acute cholecystitis. Patient has slightly elevated liver enzymes. CT and pelvis also showed 1.8x4.4 cm abdominal wall gas/fluid collection along the midline of the anterior abdominal wall-represents phlegmon/abscess. Noted multiple peripherally enhancing collections along the lateral margin seen of the liver, right lower abdominal quadrant-represent interval improvement in the abscesses Also noted findings concerning for gastroenteritis. Plan: Will continue Dilaudid p.r.n. for pain control NPO and advance when patient feels comofrtable Gentle IV fluids Continue empiric Zosyn HIDA scan no definitive cholecystitis HX subtotal colectomy/hernia repair: Surgical site healing. HX ileostomy: Ileostomy care per RN Cardiomyopathy: compensated A flutter: continue amiodarone. Continue home Eliquis Hypertension: Blood pressure on the low normal side. Will hold home antihypertensives for now DVT prophylaxis: Patient on Eliquis Code status: Full code Quality Stroke Does the patient have a stroke diagnosis?: No VTE Prior VTE?: No VTE Risk Level:: Medical - moderate - high VTE Device Contraindication: Treatment Not Indicated VTE Drug Contraindication: N/A - Med Ordered
--- NOTE | 2025-02-20 17:29 | HO.WOUND ---
Wound Consult: Initial 65yr old female admitted to [facility] on 02/19/25 with complex medical history see H&P and notes for details. She has a ileostomy that she has had for over a year at this time. She reports continued independence with care of the pouch and stoma. The stoma was observed through the pouch and appears pink and moist. The Pouch was not leaking no change needed at this time. The patient was noted to be in a convex pouch by [employer] - sghe reports she brouight in her own supplies and will continue to use them. No teaching needed and should more supplies be needed prior to discharge please TT wound care nurse. Wound Care consult for midline incision - mid incision with dried stable scab in place - no dressing needed at this time. As long as scab remains intact and stable may leave IC [employer]. no current drainage noted - no erythema noted. No s/s of infection noted Ostomy care: Patient is independent - [employer] [id number] only available from the wound nurse, should more supplies be needed prior to discharge please TT wound care nurse.
[2025-02-20 20:17] LABS: Anion Gap 10 (12-20); Blood Urea Nitrogen 8 mg/dL (9-16); Calcium 7.5 mg/dL (8.4-10.2); Carbon Dioxide 21 mmol/L (22-29); Chloride 105 mmol/L (96-108); Creatinine Clr Calc Pharmacy 85.9; Estimated Glomerular Filt Rate > 60; Glucose Random 88 mg/dL (60-115); Magnesium 1.2 mg/dL (1.6-2.6); Potassium 3.4 mmol/L (3.3-5.1); Sodium 133 mmol/L (135-145)
[2025-02-20] MEDS: carisoprodoL 350 MG TABLET PO (20:36)
[2025-02-20] MEDS: Atorvastatin Calcium 20 MG TABLET PO (20:36)
[2025-02-20] MEDS: Magnesium Sulfate/H2O 2 GM/50 ML PIGGYBACK IV (20:36)
[2025-02-20] MEDS: Mirtazapine 15 MG TABLET PO (20:36)
[2025-02-21] VITALS (10 sets, daily range): BP systolic 97–122; BP diastolic 56–66; PULSE 74–83; RESP 14–20; TEMP 36.4–36.8; O2SAT 96–98
[2025-02-21] MEDS: Piperacillin Sodium/Tazobactam 3.375 GM in 0.9 % Sodium Chloride 50 ML IV ×4 (01:29→18:03)
[2025-02-21] MEDS: Gabapentin 100 MG CAPSULE PO ×3 (01:29→16:37)
[2025-02-21] MEDS: HYDROmorphone HCl 1 MG/ML SYRINGE IVPUSH ×5 (03:30→22:28)
[2025-02-21] MEDS: Lactated Ringers 1,000 ML 80 ML IVCONT ×2 (06:52→22:32)
[2025-02-21] MEDS: Omeprazole 20 MG CAPSULE.DR PO (06:52)
--- NOTE | 2025-02-21 07:02 | P.PNGS_ITS ---
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 Patient reports needing more time to assess pain improvement and received IV dilaudid overnight for pain. Nausea improving. No vomiting, fevers, or chills. No ambulation. Ins: IV lactated ringer, IV zosyn. Outs: Erwin at 200mL of yellow urine. Ostomy bag full with pasty, green contents. Ostomy changed 1x overnight. NPO diet. < Kia Marcus - Last Filed: 02/21/25 07:24> Physical Exam 2 Vital Signs: Vital Signs: Last Vital Signs Temp 97.7 F 02/21/25 03:57 Pulse 78 02/21/25 03:57 Resp 17 02/21/25 03:57 BP 107/59 L 02/21/25 03:57 Pulse Ox 96 02/21/25 03:57 O2 Del Method Room Air 02/21/25 03:57 BMI result Body Mass Index 27.3 <Kia Hinsdale - Last Filed: 02/21/25 07:24> HEENT: Head: Yes normal to inspection and Yes normocephalic <Kia Hinsdale - Last Filed: 02/21/25 07:24> Resp: Effort & Inspection: normal respiratory effort <Kia Marcus - Last Filed: 02/21/25 07:24> GI: Other: Abdomen soft, tender to palpation in epigastric region, non-distended. Bowel sounds present. Scabs noted on abdomen. <Kia Marcus - Last Filed: 02/21/25 07:24> : Other: Erwin secured. See HPI <Kia Marcus - Last Filed: 02/21/25 07:24> Neuro: General: moves all extremities <Kia Hinsdale - Last Filed: 02/21/25 07:24> Extrem: General: Yes normal to inspection <Kia Marcus - Last Filed: 02/21/25 07:24> Psych: Mental Status: mental status grossly normal <Kia Velazquez - Last Filed: 02/21/25 07:24> Objective Data Active Medications Acetaminophen (Acetaminophen 325 Mg Tablet) 650 mg PO Q6H PRN PRN Reason: Pain, Mild 1-3,fever,headache Amiodarone HCl (Amiodarone Hcl 200 Mg Tablet) 200 mg PO DAILY [facility] Last Admin: 02/20/25 08:33 Dose: 200 mg Documented By: ALLIE Apixaban (Apixaban 5 Mg Tablet) 5 mg PO BID [facility] Last Admin: 02/20/25 20:36 Dose: 5 mg Documented By: CARMEN Atorvastatin Calcium (Atorvastatin Calcium 20 Mg Tablet) 20 mg PO BEDTIME [facility] Last Admin: 02/20/25 20:36 Dose: 20 mg Documented By: CARMEN Calcium Carbonate (Calcium Carbonate 750 Mg Tab.Chew) 750 mg PO Q4H PRN PRN Reason: Heartburn Carisoprodol (Carisoprodol 350 Mg Tablet) 350 mg PO BEDTIME [facility] Last Admin: 02/20/25 20:36 Dose: 350 mg Documented By: CARMEN Carvedilol (Carvedilol 6.25 Mg Tablet) 6.25 mg PO BID [facility]; Protocol Last Admin: 02/20/25 20:36 Dose: 6.25 mg Documented By: CARMEN Colchicine (Colchicine 0.6 Mg Tablet) 0.6 mg PO DAILY [facility] Last Admin: 02/20/25 08:33 Dose: 0.6 mg Documented By: ALLIE Gabapentin (Gabapentin 100 Mg Capsule) 100 mg PO Q8H [facility] Last Admin: 02/21/25 01:29 Dose: 100 mg Documented By: CARMEN Hydromorphone HCl (Hydromorphone Hcl 1 Mg/Ml Syringe) 1 mg IVPUSH Q4H PRN; Protocol PRN Reason: Breakthrough Pain Last Admin: 02/21/25 03:30 Dose: 1 mg Documented By: CARMEN Piperacillin Sod/Tazobactam (Sod 3.375 gm/ Sodium Chloride) 50 mls @ 100 mls/hr IV Q6H [facility] Last Admin: 02/21/25 06:52 Dose: 100 mls/hr Documented By: CARMEN Lactated Ringer's (Lr) 1,000 mls @ 80 mls/hr IVCONT .[id number] [facility] Last Admin: 02/21/25 06:52 Dose: 80 mls/hr Documented By: CARMEN Magnesium Hydroxide (Milk Of Magnesia 30 Ml Oral.Susp) 30 ml PO DAILY PRN PRN Reason: Constipation Melatonin (Melatonin 3 Mg Tablet) 6 mg PO BEDTIME PRN PRN Reason: Insomnia Metoclopramide HCl (Metoclopramide Hcl 10 Mg/2 Ml Vial) 5 mg IVPUSH Q6H PRN PRN Reason: Nausea and Vomiting Last Admin: 02/20/25 05:56 Dose: 5 mg Documented By: JOSE Mirtazapine (Mirtazapine 15 Mg Tablet) 15 mg PO BEDTIME [facility] Last Admin: 02/20/25 20:36 Dose: 15 mg Documented By: CARMEN Multivitamins/Vitamin C (Multivitamin Tablet) 1 tab PO DAILY [facility] Last Admin: 02/20/25 08:32 Dose: 1 tab Documented By: ALLIE Omeprazole (Omeprazole 20 Mg Capsule.Dr) 20 mg PO DAILY@0630 [facility] Last Admin: 02/21/25 06:52 Dose: 20 mg Documented By: CARMEN Ondansetron HCl (Ondansetron Hcl 4 Mg/2 Ml Vial) 4 mg IVPUSH Q6H PRN PRN Reason: Nausea and Vomiting Last Admin: 02/20/25 08:49 Dose: 4 mg Documented By: ALLIE Sodium Chloride (0.9 % Sodium Chloride Flush 3 Ml Syringe) 3 ml IVFLUSH QSHIFT [facility] Last Admin: 02/20/25 20:41 Dose: Not Given Documented By: CARMEN Non-Admin Reason: IV Running <Kia Velazquez - Last Filed: 02/21/25 07:24> Labs CBC & Chem 7: 02/19/25 04:48 02/21/25 08:30 <Kia Velazquez - Last Filed: 02/21/25 07:24> Labs: Laboratory Results - last 24 hr 02/20/25 19:11 Anion Gap 10 L Estim Creat Clear Calc 85.9 Estimated GFR > 60 Random Glucose 88 Calcium 7.5 L D Magnesium 1.2 L* <Kia Velazquez - Last Filed: 02/21/25 07:24> Microbiology Microbiology Results: Microbiology 02/18/25 20:57 Blood Culture - Preliminary Blood - Venous No growth after 48 hours. 02/18/25 20:18 Blood Culture - Preliminary Blood - Venous No growth after 48 hours. <Kia Velazquez - Last Filed: 02/21/25 07:24> Procedures Date of Service Date of Service: 02/21/25 <Kia Velazquez - Last Filed: 02/21/25 07:24> 02/21/25 <Kannan Chappell PA-C - Last Filed: 02/21/25 13:51> Progress Note: A&P Assessment and plan (1) Pancreatitis: Status: Acute <Kia Velazquez - Last Filed: 02/21/25 07:24> Assessment and Plan: 65 y/o F with acute pancreatitis and a PMH of colectomy complicated by intra-abdominal abscesses, stable. Nausea improving, has not ambulated, passing green stools through ostomy. Plan: Reassess pain and continue IV dilaudid PRN. Trial full liquid diet. Encourage ambulation. Change ostomy bag as needed. Continue IV zosyn and possibly order CBC to assess infection. <Kia Velazquez - Last Filed: 02/21/25 07:24> 65 y/o F with acute pancreatitis and a PMH of colectomy complicated by intra-abdominal abscesses, stable. Nausea improving, has not ambulated, passing green stools through ostomy. Plan: Reassess pain and continue IV dilaudid PRN. Trial full liquid diet. Encourage ambulation. Change ostomy bag as needed. Continue IV zosyn and possibly order CBC to assess infection. Patient seen and evaluated independently I agree with the above assessment and plan <Kannan Chappell PA-C - Last Filed: 02/21/25 13:51> Time Spent With Patient Time: Total time managing care of this patient today ____ minutes. <Kia Velazquez - Last Filed: 02/21/25 07:24> Quality Stroke Does the patient have a stroke diagnosis?: No <Kia Velazquez - Last Filed: 02/21/25 07:24> VTE Prior VTE?: No <Kia Velazquez - Last Filed: 02/21/25 07:24> VTE Risk Level:: Medical - moderate - high <Kia Velazquez - Last Filed: 02/21/25 07:24> VTE Device Contraindication: Treatment Not Indicated <Kia Velazquez - Last Filed: 02/21/25 07:24> VTE Drug Contraindication: N/A - Med Ordered <Kia Velazquez - Last Filed: 02/21/25 07:24>
--- NOTE | 2025-02-21 07:28 | P.PNGS_ITS ---
Subjective Subjective Date of Service: 02/23/25 Interval history: feels better abdl much improved tolerating clears Physical Exam 2 Vital Signs: Vital Signs: Last Vital Signs Temp 98.0 F 02/21/25 07:08 Pulse 78 02/21/25 07:08 Resp 15 02/21/25 07:08 BP 114/63 02/21/25 07:08 Pulse Ox 97 02/21/25 07:08 O2 Del Method Room Air 02/21/25 07:08 BMI result Body Mass Index 27.3 Const: General: comfortable and no acute distress Resp: Effort & Inspection: normal respiratory effort GI: Other: minimal tenderness, stoma functioning Palpation (GI): Soft to palpation and not firm Objective Data Active Medications Acetaminophen (Acetaminophen 325 Mg Tablet) 650 mg PO Q6H PRN PRN Reason: Pain, Mild 1-3,fever,headache Amiodarone HCl (Amiodarone Hcl 200 Mg Tablet) 200 mg PO DAILY [facility] Last Admin: 02/20/25 08:33 Dose: 200 mg Documented By: ALLIE Apixaban (Apixaban 5 Mg Tablet) 5 mg PO BID [facility] Last Admin: 02/20/25 20:36 Dose: 5 mg Documented By: CARMEN Atorvastatin Calcium (Atorvastatin Calcium 20 Mg Tablet) 20 mg PO BEDTIME [facility] Last Admin: 02/20/25 20:36 Dose: 20 mg Documented By: CARMEN Calcium Carbonate (Calcium Carbonate 750 Mg Tab.Chew) 750 mg PO Q4H PRN PRN Reason: Heartburn Carisoprodol (Carisoprodol 350 Mg Tablet) 350 mg PO BEDTIME [facility] Last Admin: 02/20/25 20:36 Dose: 350 mg Documented By: CARMEN Carvedilol (Carvedilol 6.25 Mg Tablet) 6.25 mg PO BID [facility]; Protocol Last Admin: 02/20/25 20:36 Dose: 6.25 mg Documented By: CARMEN Colchicine (Colchicine 0.6 Mg Tablet) 0.6 mg PO DAILY [facility] Last Admin: 02/20/25 08:33 Dose: 0.6 mg Documented By: ALLIE Gabapentin (Gabapentin 100 Mg Capsule) 100 mg PO Q8H [facility] Last Admin: 02/21/25 01:29 Dose: 100 mg Documented By: CARMEN Hydromorphone HCl (Hydromorphone Hcl 1 Mg/Ml Syringe) 1 mg IVPUSH Q4H PRN; Protocol PRN Reason: Breakthrough Pain Last Admin: 02/21/25 03:30 Dose: 1 mg Documented By: CARMEN Piperacillin Sod/Tazobactam (Sod 3.375 gm/ Sodium Chloride) 50 mls @ 100 mls/hr IV Q6H [facility] Last Admin: 02/21/25 06:52 Dose: 100 mls/hr Documented By: CARMEN Lactated Ringer's (Lr) 1,000 mls @ 80 mls/hr IVCONT .[id number] [facility] Last Admin: 02/21/25 06:52 Dose: 80 mls/hr Documented By: CARMEN Magnesium Hydroxide (Milk Of Magnesia 30 Ml Oral.Susp) 30 ml PO DAILY PRN PRN Reason: Constipation Melatonin (Melatonin 3 Mg Tablet) 6 mg PO BEDTIME PRN PRN Reason: Insomnia Metoclopramide HCl (Metoclopramide Hcl 10 Mg/2 Ml Vial) 5 mg IVPUSH Q6H PRN PRN Reason: Nausea and Vomiting Last Admin: 02/20/25 05:56 Dose: 5 mg Documented By: JOSE Mirtazapine (Mirtazapine 15 Mg Tablet) 15 mg PO BEDTIME [facility] Last Admin: 02/20/25 20:36 Dose: 15 mg Documented By: CARMEN Multivitamins/Vitamin C (Multivitamin Tablet) 1 tab PO DAILY [facility] Last Admin: 02/20/25 08:32 Dose: 1 tab Documented By: ALLIE Omeprazole (Omeprazole 20 Mg Capsule.) 20 mg PO DAILY@0630 [facility] Last Admin: 02/21/25 06:52 Dose: 20 mg Documented By: CARMEN Ondansetron HCl (Ondansetron Hcl 4 Mg/2 Ml Vial) 4 mg IVPUSH Q6H PRN PRN Reason: Nausea and Vomiting Last Admin: 02/20/25 08:49 Dose: 4 mg Documented By: ALLIE Sodium Chloride (0.9 % Sodium Chloride Flush 3 Ml Syringe) 3 ml IVFLUSH QSHIFT [facility] Last Admin: 02/20/25 20:41 Dose: Not Given Documented By: CARMEN Non-Admin Reason: IV Running Labs 02/22/25 08:17 02/23/25 06:35 Labs: Laboratory Results - last 24 hr 02/20/25 19:11 Anion Gap 10 L Estim Creat Clear Calc 85.9 Estimated GFR > 60 Random Glucose 88 Calcium 7.5 L D Magnesium 1.2 L* Microbiology Microbiology Results: Microbiology 02/18/25 20:57 Blood Culture - Preliminary Blood - Venous No growth after 48 hours. 02/18/25 20:18 Blood Culture - Preliminary Blood - Venous No growth after 48 hours. Procedures Date of Service Date of Service: 02/23/25 Progress Note: A&P Assessment and plan (1) Pancreatitis: Status: Acute Assessment and Plan: improving well abd soft and benign ok to advance diet stoma care encouraged ambulation Time Spent With Patient Time: Total time managing care of this patient today ____ minutes. Quality Stroke Does the patient have a stroke diagnosis?: No VTE Prior VTE?: No VTE Risk Level:: Medical - moderate - high VTE Device Contraindication: Treatment Not Indicated VTE Drug Contraindication: N/A - Med Ordered
[2025-02-21] MEDS: Multivitamin TABLET 1 TAB PO (07:45)
[2025-02-21] MEDS: Colchicine 0.6 MG TABLET PO (07:45)
[2025-02-21] MEDS: 0.9 % Sodium Chloride Flush 3 ML SYRINGE IVFLUSH ×2 (07:45→16:37)
[2025-02-21] MEDS: Amiodarone HCL 200 MG TABLET PO (07:45)
[2025-02-21] MEDS: carvediloL 6.25 MG TABLET PO ×2 (07:45→20:10)
[2025-02-21] MEDS: Apixaban 5 MG TABLET PO ×2 (07:45→20:10)
[2025-02-21 09:08] LABS: Anion Gap 10 (12-20); Blood Urea Nitrogen 7 mg/dL (9-16); Calcium 7.3 mg/dL (8.4-10.2); Carbon Dioxide 22 mmol/L (22-29); Chloride 103 mmol/L (96-108); Creatinine Clr Calc Pharmacy 92.3; Estimated Glomerular Filt Rate > 60; Glucose Random 72 mg/dL (60-115); Magnesium 1.6 mg/dL (1.6-2.6); Potassium 2.9 mmol/L (3.3-5.1); Sodium 132 mmol/L (135-145)
--- NOTE | 2025-02-21 10:26 | P.PNIM_ITS ---
Subjective Subjective Date of Service: 02/21/25 Interval History: Reporting pain still, but better, tolerating liquid diet Physical Exam 2 Vital Signs: Vital Signs: Last Vital Signs Temp 98.0 F 02/21/25 07:08 Pulse 78 02/21/25 08:51 Resp 15 02/21/25 07:08 BP 114/63 02/21/25 08:51 Pulse Ox 97 02/21/25 08:51 O2 Del Method Room Air 02/21/25 07:08 BMI result Body Mass Index 27.3 Const: Other: General: AO X 3, no acute distress Resp: CTA bilateral CVS: S1,S2,RRR GI: +BS,epig tenderness, no distention Skin: No rash Neuro: motor grossly intact Psych: appropriate affect Objective Data Active Medications Acetaminophen (Acetaminophen 325 Mg Tablet) 650 mg PO Q6H PRN PRN Reason: Pain, Mild 1-3,fever,headache Amiodarone HCl (Amiodarone Hcl 200 Mg Tablet) 200 mg PO DAILY [facility] Last Admin: 02/21/25 07:45 Dose: 200 mg Documented By: ALLIE Apixaban (Apixaban 5 Mg Tablet) 5 mg PO BID [facility] Last Admin: 02/21/25 07:45 Dose: 5 mg Documented By: ALLIE Atorvastatin Calcium (Atorvastatin Calcium 20 Mg Tablet) 20 mg PO BEDTIME [facility] Last Admin: 02/20/25 20:36 Dose: 20 mg Documented By: CARMEN Calcium Carbonate (Calcium Carbonate 750 Mg Tab.Chew) 750 mg PO Q4H PRN PRN Reason: Heartburn Carisoprodol (Carisoprodol 350 Mg Tablet) 350 mg PO BEDTIME [facility] Last Admin: 02/20/25 20:36 Dose: 350 mg Documented By: CARMEN Carvedilol (Carvedilol 6.25 Mg Tablet) 6.25 mg PO BID [facility]; Protocol Last Admin: 02/21/25 07:45 Dose: 6.25 mg Documented By: ALLIE Colchicine (Colchicine 0.6 Mg Tablet) 0.6 mg PO DAILY [facility] Last Admin: 02/21/25 07:45 Dose: 0.6 mg Documented By: ALLIE Gabapentin (Gabapentin 100 Mg Capsule) 100 mg PO Q8H [facility] Last Admin: 02/21/25 07:45 Dose: 100 mg Documented By: ALLIE Hydromorphone HCl (Hydromorphone Hcl 1 Mg/Ml Syringe) 1 mg IVPUSH Q4H PRN; Protocol PRN Reason: Breakthrough Pain Last Admin: 02/21/25 09:35 Dose: 1 mg Documented By: ALLIE Piperacillin Sod/Tazobactam (Sod 3.375 gm/ Sodium Chloride) 50 mls @ 100 mls/hr IV Q6H [facility] Last Infusion: 02/21/25 07:51 Dose: Infused Documented By: ALLIE Lactated Ringer's (Lr) 1,000 mls @ 80 mls/hr IVCONT .[id number] [facility] Last Admin: 02/21/25 06:52 Dose: 80 mls/hr Documented By: CARMEN Magnesium Hydroxide (Milk Of Magnesia 30 Ml Oral.Susp) 30 ml PO DAILY PRN PRN Reason: Constipation Melatonin (Melatonin 3 Mg Tablet) 6 mg PO BEDTIME PRN PRN Reason: Insomnia Metoclopramide HCl (Metoclopramide Hcl 10 Mg/2 Ml Vial) 5 mg IVPUSH Q6H PRN PRN Reason: Nausea and Vomiting Last Admin: 02/20/25 05:56 Dose: 5 mg Documented By: JOSE Mirtazapine (Mirtazapine 15 Mg Tablet) 15 mg PO BEDTIME [facility] Last Admin: 02/20/25 20:36 Dose: 15 mg Documented By: CARMEN Multivitamins/Vitamin C (Multivitamin Tablet) 1 tab PO DAILY [facility] Last Admin: 02/21/25 07:45 Dose: 1 tab Documented By: ALLIE Omeprazole (Omeprazole 20 Mg Capsule.Dr) 20 mg PO DAILY@0630 [facility] Last Admin: 02/21/25 06:52 Dose: 20 mg Documented By: CARMEN Ondansetron HCl (Ondansetron Hcl 4 Mg/2 Ml Vial) 4 mg IVPUSH Q6H PRN PRN Reason: Nausea and Vomiting Last Admin: 02/20/25 08:49 Dose: 4 mg Documented By: ALLIE Sodium Chloride (0.9 % Sodium Chloride Flush 3 Ml Syringe) 3 ml IVFLUSH QSHIFT [facility] Last Admin: 02/21/25 07:45 Dose: 3 ml Documented By: ALLIE Labs 02/19/25 04:48 02/21/25 08:30 Labs: Laboratory Results - last 24 hr 02/20/25 02/21/25 19:11 08:30 Anion Gap 10 L 10 L Estim Creat Clear Calc 85.9 92.3 Estimated GFR > 60 > 60 Random Glucose 88 72 Calcium 7.5 L D 7.3 L Magnesium 1.2 L* 1.6 Microbiology Microbiology Results: Microbiology 02/18/25 20:57 Blood Culture - Preliminary Blood - Venous No growth after 48 hours. 02/18/25 20:18 Blood Culture - Preliminary Blood - Venous No growth after 48 hours. Assessment and Plan (1) Pancreatitis: Status: Acute Plan 65-year-old female with a past medical history of HTN, HLD, CAD, CHF, a flutter on Eliquis, IBS, history of pancreatitis, recent subtotal colectomy/hernia repair at [facility] on 01/07/2025 with resultant ileostomy bag. Followed by patient had admission to the ICU at [facility] from 01/20-01/25 for pulmonary edema/pericardial effusion/anemia/new onset a flutter/intra-abdominal abscess/bacteremia-> patient was transferred to [facility] where she has abscess drained and treated conservatively, Finished a course of antibiotics and discharged home on 02/17/25. Presented back to the ER on 02/18/25 overnight with a chief complaint of abdominal pain. Admitted for following Abdominal pain: CT and pelvis showed peripancreatic edema concerning for pancreatitis. Also noted biliary sludge and mild gallbladder wall thickening concerning for possible acute cholecystitis. Patient has slightly elevated liver enzymes. CT and pelvis also showed 1.8x4.4 cm abdominal wall gas/fluid collection along the midline of the anterior abdominal wall-represents phlegmon/abscess. Noted multiple peripherally enhancing collections along the lateral margin seen of the liver, right lower abdominal quadrant-represent interval improvement in the abscesses Also noted findings concerning for gastroenteritis. Plan: Will continue Dilaudid p.r.n. for pain control advance diet as mela Gentle IV fluids Continue empiric Zosyn HIDA scan no definitive cholecystitis HX subtotal colectomy/hernia repair: Surgical site healing. HX ileostomy: Ileostomy care per RN Cardiomyopathy: compensated A flutter: continue amiodarone. Continue home Eliquis Hypertension: Blood pressure on the low normal side. Will hold home antihypertensives for now DVT prophylaxis: Patient on Eliquis Code status: Full code Quality Stroke Does the patient have a stroke diagnosis?: No VTE Prior VTE?: No VTE Risk Level:: Medical - moderate - high VTE Device Contraindication: Treatment Not Indicated VTE Drug Contraindication: N/A - Med Ordered
--- NOTE | 2025-02-21 11:18 | PC.NURSE ---
Patient oob to chair, 1-2 assist with walker. This RN attempted to remove perez catheter. Patient refusing to have catheter removed at this time. Patient states, I want one more day to get stronger . Patient educated on risks of leaving catheter in place and educated on other alternatives such as a purewick or bedside commode. Patient still refusing at this time. MD notified.
--- NOTE | 2025-02-21 11:57 | MHC.CM.PN ---
Patient has not yet been medically cleared for dc (C/O pain); PT is recommending home with services and CM will continue to follow.
[2025-02-21] MEDS: Potassium Chloride/H20 10 MEQ/100 ML PIGGYBACK 100 MEQ IV ×4 (14:20→18:26)
[2025-02-21] MEDS: Atorvastatin Calcium 20 MG TABLET PO (20:09)
[2025-02-21] MEDS: carisoprodoL 350 MG TABLET PO (20:09)
[2025-02-21] MEDS: Mirtazapine 15 MG TABLET PO (20:10)
[2025-02-22] VITALS (11 sets, daily range): BP systolic 102–120; BP diastolic 56–71; PULSE 77–88; RESP 14–20; TEMP 36.1–36.8; O2SAT 95–98
[2025-02-22] MEDS: Gabapentin 100 MG CAPSULE PO ×4 (00:03→23:54)
[2025-02-22] MEDS: Piperacillin Sodium/Tazobactam 3.375 GM in 0.9 % Sodium Chloride 50 ML IV ×5 (00:04→23:54)
[2025-02-22] MEDS: 0.9 % Sodium Chloride Flush 3 ML SYRINGE IVFLUSH ×4 (00:11→19:46)
[2025-02-22] MEDS: Omeprazole 20 MG CAPSULE.DR PO (05:50)
[2025-02-22] MEDS: HYDROmorphone HCl 1 MG/ML SYRINGE IVPUSH ×5 (05:57→23:54)
[2025-02-22 08:58] LABS: Hematocrit 23.9 % (37.0-47.0); Hemoglobin 7.6 g/dl (12.0-16.0); Mean Corpuscular HGB Conc 31.8 g/dl (31.0-35.0); Mean Corpuscular Hemoglobin 29.9 pg (27.0-33.0); Mean Corpuscular Volume 94.1 fL (80.0-98.0); NRBC Pct Auto 0.5 /100WBC (0.0-0.2); Platelet Count 192 X10*3/uL (160-400); Red Blood Count 2.54 X10*6/uL (4.20-5.50); Red Cell Distribution Width 16.9 % (11.0-16.0); White Blood Count 8.6 X10*3/uL (4.8-10.8)
[2025-02-22] MEDS: carvediloL 6.25 MG TABLET PO ×2 (09:01→19:46)
[2025-02-22] MEDS: Multivitamin TABLET 1 TAB PO (09:02)
[2025-02-22] MEDS: Amiodarone HCL 200 MG TABLET PO (09:02)
[2025-02-22] MEDS: Apixaban 5 MG TABLET PO ×2 (09:02→19:46)
[2025-02-22] MEDS: Colchicine 0.6 MG TABLET PO (09:02)
[2025-02-22 09:06] LABS: Anion Gap 9 (12-20); Blood Urea Nitrogen 6 mg/dL (9-16); Calcium 7.1 mg/dL (8.4-10.2); Carbon Dioxide 23 mmol/L (22-29); Chloride 104 mmol/L (96-108); Creatinine Clr Calc Pharmacy 103.9; Estimated Glomerular Filt Rate > 60; Glucose Random 77 mg/dL (60-115); Lipase 256 U/L (8-78); Potassium 3.6 mmol/L (3.3-5.1); Sodium 132 mmol/L (135-145)
--- NOTE | 2025-02-22 09:13 | P.PNGS_ITS ---
Subjective Subjective Date of Service: 02/22/25 Interval history: Feels much better Much less pain Tolerating full liquids well Stoma functioning well Physical Exam 2 Vital Signs: Vital Signs: Last Vital Signs Temp 97.9 F 02/22/25 07:46 Pulse 81 02/22/25 07:46 Resp 20 02/22/25 07:46 BP 104/56 L 02/22/25 07:46 Pulse Ox 95 02/22/25 07:46 O2 Del Method Room Air 02/22/25 07:46 BMI result Body Mass Index 27.3 Const: General: comfortable and no acute distress Resp: Effort & Inspection: normal respiratory effort Cardio: Rhythm: regular rhythm GI: Other: Stoma with output Palpation (GI): Soft to palpation, not firm, Tenderness to palpation present (GI) (Mild tenderness upper abdomen) and no guarding Objective Data Active Medications Acetaminophen (Acetaminophen 325 Mg Tablet) 650 mg PO Q6H PRN PRN Reason: Pain, Mild 1-3,fever,headache Amiodarone HCl (Amiodarone Hcl 200 Mg Tablet) 200 mg PO DAILY [facility] Last Admin: 02/22/25 09:02 Dose: 200 mg Documented By: CORIE Apixaban (Apixaban 5 Mg Tablet) 5 mg PO BID [facility] Last Admin: 02/22/25 09:02 Dose: 5 mg Documented By: CORIE Atorvastatin Calcium (Atorvastatin Calcium 20 Mg Tablet) 20 mg PO BEDTIME [facility] Last Admin: 02/21/25 20:09 Dose: 20 mg Documented By: EUSEBIO Calcium Carbonate (Calcium Carbonate 750 Mg Tab.Chew) 750 mg PO Q4H PRN PRN Reason: Heartburn Carisoprodol (Carisoprodol 350 Mg Tablet) 350 mg PO BEDTIME [facility] Last Admin: 02/21/25 20:09 Dose: 350 mg Documented By: EUSEBIO Carvedilol (Carvedilol 6.25 Mg Tablet) 6.25 mg PO BID [facility]; Protocol Last Admin: 02/22/25 09:01 Dose: 6.25 mg Documented By: CORIE Colchicine (Colchicine 0.6 Mg Tablet) 0.6 mg PO DAILY [facility] Last Admin: 02/22/25 09:02 Dose: 0.6 mg Documented By: CORIE Gabapentin (Gabapentin 100 Mg Capsule) 100 mg PO Q8H [facility] Last Admin: 02/22/25 09:02 Dose: 100 mg Documented By: CORIE Hydromorphone HCl (Hydromorphone Hcl 1 Mg/Ml Syringe) 1 mg IVPUSH Q4H PRN; Protocol PRN Reason: Breakthrough Pain Last Admin: 02/22/25 05:57 Dose: 1 mg Documented By: EUSEBIO Piperacillin Sod/Tazobactam (Sod 3.375 gm/ Sodium Chloride) 50 mls @ 100 mls/hr IV Q6H [facility] Last Infusion: 02/22/25 06:20 Dose: Infused Documented By: EUSEBIO Lactated Ringer's (Lr) 1,000 mls @ 80 mls/hr IVCONT .[id number] [facility] Last Admin: 02/21/25 22:32 Dose: 80 mls/hr Documented By: EUSEBIO Magnesium Hydroxide (Milk Of Magnesia 30 Ml Oral.Susp) 30 ml PO DAILY PRN PRN Reason: Constipation Melatonin (Melatonin 3 Mg Tablet) 6 mg PO BEDTIME PRN PRN Reason: Insomnia Metoclopramide HCl (Metoclopramide Hcl 10 Mg/2 Ml Vial) 5 mg IVPUSH Q6H PRN PRN Reason: Nausea and Vomiting Last Admin: 02/20/25 05:56 Dose: 5 mg Documented By: JOSE Mirtazapine (Mirtazapine 15 Mg Tablet) 15 mg PO BEDTIME [facility] Last Admin: 02/21/25 20:10 Dose: 15 mg Documented By: EUSEBIO Multivitamins/Vitamin C (Multivitamin Tablet) 1 tab PO DAILY [facility] Last Admin: 02/22/25 09:02 Dose: 1 tab Documented By: CORIE Omeprazole (Omeprazole 20 Mg Capsule.) 20 mg PO DAILY@0630 [facility] Last Admin: 02/22/25 05:50 Dose: 20 mg Documented By: EUSEBIO Ondansetron HCl (Ondansetron Hcl 4 Mg/2 Ml Vial) 4 mg IVPUSH Q6H PRN PRN Reason: Nausea and Vomiting Last Admin: 02/20/25 08:49 Dose: 4 mg Documented By: ALLIE Sodium Chloride (0.9 % Sodium Chloride Flush 3 Ml Syringe) 3 ml IVFLUSH QSHIFT [facility] Last Admin: 02/22/25 09:02 Dose: 3 ml Documented By: CORIE Labs 02/22/25 08:17 02/22/25 08:17 Labs: Laboratory Results - last 24 hr 02/22/25 08:17 MCV 94.1 MCH 29.9 MCHC 31.8 RDW 16.9 H Plt Count 192 D MPV 11.0 Absolute Nucleated RBC 0.040 H Nucleated RBC % (auto) 0.5 H Anion Gap 9 L Estim Creat Clear Calc 103.9 Estimated GFR > 60 Random Glucose 77 Calcium 7.1 L Lipase 256 H Procedures Date of Service Date of Service: 02/22/25 Progress Note: A&P Assessment and plan (1) Pancreatitis: Status: Acute Assessment and Plan: Symptoms much improved Abdomen is soft and benign She is hungry and wants to have regular diet Diet as tolerated Encouraged to get out of bed and ambulate Clinically doing well Time Spent With Patient Time: Total time managing care of this patient today ____ minutes. Quality Stroke Does the patient have a stroke diagnosis?: No VTE Prior VTE?: No VTE Risk Level:: Medical - moderate - high VTE Device Contraindication: Treatment Not Indicated VTE Drug Contraindication: N/A - Med Ordered
--- NOTE | 2025-02-22 09:21 | P.PNIM_ITS ---
Subjective Subjective Date of Service: 02/22/25 Interval History: Reporting pain still, but better, tolerating liquid diet and would like diet advanced Physical Exam 2 Vital Signs: Vital Signs: Last Vital Signs Temp 97.9 F 02/22/25 07:46 Pulse 81 02/22/25 07:46 Resp 20 02/22/25 07:46 BP 104/56 L 02/22/25 07:46 Pulse Ox 95 02/22/25 07:46 O2 Del Method Room Air 02/22/25 07:46 BMI result Body Mass Index 27.3 Const: Other: General: AO X 3, no acute distress Resp: CTA bilateral CVS: S1,S2,RRR GI: +BS,epig tenderness, no distention Skin: No rash Neuro: motor grossly intact Psych: appropriate affect Objective Data Active Medications Acetaminophen (Acetaminophen 325 Mg Tablet) 650 mg PO Q6H PRN PRN Reason: Pain, Mild 1-3,fever,headache Amiodarone HCl (Amiodarone Hcl 200 Mg Tablet) 200 mg PO DAILY [facility] Last Admin: 02/22/25 09:02 Dose: 200 mg Documented By: CORIE Apixaban (Apixaban 5 Mg Tablet) 5 mg PO BID [facility] Last Admin: 02/22/25 09:02 Dose: 5 mg Documented By: CORIE Atorvastatin Calcium (Atorvastatin Calcium 20 Mg Tablet) 20 mg PO BEDTIME [facility] Last Admin: 02/21/25 20:09 Dose: 20 mg Documented By: EUSEBIO Calcium Carbonate (Calcium Carbonate 750 Mg Tab.Chew) 750 mg PO Q4H PRN PRN Reason: Heartburn Carisoprodol (Carisoprodol 350 Mg Tablet) 350 mg PO BEDTIME [facility] Last Admin: 02/21/25 20:09 Dose: 350 mg Documented By: EUSEBIO Carvedilol (Carvedilol 6.25 Mg Tablet) 6.25 mg PO BID [facility]; Protocol Last Admin: 02/22/25 09:01 Dose: 6.25 mg Documented By: CORIE Colchicine (Colchicine 0.6 Mg Tablet) 0.6 mg PO DAILY [facility] Last Admin: 02/22/25 09:02 Dose: 0.6 mg Documented By: CORIE Gabapentin (Gabapentin 100 Mg Capsule) 100 mg PO Q8H [facility] Last Admin: 02/22/25 09:02 Dose: 100 mg Documented By: CORIE Hydromorphone HCl (Hydromorphone Hcl 1 Mg/Ml Syringe) 1 mg IVPUSH Q4H PRN; Protocol PRN Reason: Breakthrough Pain Last Admin: 02/22/25 05:57 Dose: 1 mg Documented By: EUSEBIO Piperacillin Sod/Tazobactam (Sod 3.375 gm/ Sodium Chloride) 50 mls @ 100 mls/hr IV Q6H [facility] Last Infusion: 02/22/25 06:20 Dose: Infused Documented By: EUSEBIO Lactated Ringer's (Lr) 1,000 mls @ 80 mls/hr IVCONT .[id number] [facility] Last Admin: 02/21/25 22:32 Dose: 80 mls/hr Documented By: EUSEBIO Magnesium Hydroxide (Milk Of Magnesia 30 Ml Oral.Susp) 30 ml PO DAILY PRN PRN Reason: Constipation Melatonin (Melatonin 3 Mg Tablet) 6 mg PO BEDTIME PRN PRN Reason: Insomnia Metoclopramide HCl (Metoclopramide Hcl 10 Mg/2 Ml Vial) 5 mg IVPUSH Q6H PRN PRN Reason: Nausea and Vomiting Last Admin: 02/20/25 05:56 Dose: 5 mg Documented By: JOSE Mirtazapine (Mirtazapine 15 Mg Tablet) 15 mg PO BEDTIME [facility] Last Admin: 02/21/25 20:10 Dose: 15 mg Documented By: EUSEBIO Multivitamins/Vitamin C (Multivitamin Tablet) 1 tab PO DAILY [facility] Last Admin: 02/22/25 09:02 Dose: 1 tab Documented By: CORIE Omeprazole (Omeprazole 20 Mg Capsule.Dr) 20 mg PO DAILY@0630 [facility] Last Admin: 02/22/25 05:50 Dose: 20 mg Documented By: EUSEBIO Ondansetron HCl (Ondansetron Hcl 4 Mg/2 Ml Vial) 4 mg IVPUSH Q6H PRN PRN Reason: Nausea and Vomiting Last Admin: 02/20/25 08:49 Dose: 4 mg Documented By: ALLIE Sodium Chloride (0.9 % Sodium Chloride Flush 3 Ml Syringe) 3 ml IVFLUSH QSHIFT [facility] Last Admin: 02/22/25 09:02 Dose: 3 ml Documented By: CORIE Labs 02/22/25 08:17 02/22/25 08:17 Labs: Laboratory Results - last 24 hr 02/22/25 08:17 MCV 94.1 MCH 29.9 MCHC 31.8 RDW 16.9 H Plt Count 192 D MPV 11.0 Absolute Nucleated RBC 0.040 H Nucleated RBC % (auto) 0.5 H Anion Gap 9 L Estim Creat Clear Calc 103.9 Estimated GFR > 60 Random Glucose 77 Calcium 7.1 L Lipase 256 H Assessment and Plan (1) Pancreatitis: Status: Acute Plan 65-year-old female with a past medical history of HTN, HLD, CAD, CHF, a flutter on Eliquis, IBS, history of pancreatitis, recent subtotal colectomy/hernia repair at [facility] [place] [place] on 01/07/2025 with resultant ileostomy bag. Followed by patient had admission to the ICU at [facility] from 01/20-01/25 for pulmonary edema/pericardial effusion/anemia/new onset a flutter/intra-abdominal abscess/bacteremia-> patient was transferred to [facility] where she has abscess drained and treated conservatively, Finished a course of antibiotics and discharged home on 02/17/25. Presented back to the ER on 02/18/25 overnight with a chief complaint of abdominal pain. Admitted for following Abdominal pain: CT and pelvis showed peripancreatic edema concerning for pancreatitis. Also noted biliary sludge and mild gallbladder wall thickening concerning for possible acute cholecystitis. Patient has slightly elevated liver enzymes, lipase level remain elevated. CT and pelvis also showed 1.8x4.4 cm abdominal wall gas/fluid collection along the midline of the anterior abdominal wall-represents phlegmon/abscess. Noted multiple peripherally enhancing collections along the lateral margin seen of the liver, right lower abdominal quadrant-represent interval improvement in the abscesses Also noted findings concerning for gastroenteritis. Plan: Will continue Dilaudid p.r.n. for pain control advance diet as mela Continue empiric Zosyn HIDA scan no definitive cholecystitis Surgery input noted HX subtotal colectomy/hernia repair: Surgical site healing. HX ileostomy: Ileostomy care per RN Cardiomyopathy: compensated A flutter: continue amiodarone. Continue home Eliquis Hypertension: Blood pressure on the low normal side. Will hold home antihypertensives for now Hypomagnesemia and hypokalemia IV mag, K is now normal DVT prophylaxis: Patient on Eliquis Code status: Full code Quality Stroke Does the patient have a stroke diagnosis?: No VTE Prior VTE?: No VTE Risk Level:: Medical - moderate - high VTE Device Contraindication: Treatment Not Indicated VTE Drug Contraindication: N/A - Med Ordered
[2025-02-22 09:23] LABS: Magnesium 1.3 mg/dL (1.6-2.6)
[2025-02-22] MEDS: Lactated Ringers 1,000 ML 80 ML IVCONT (10:41)
[2025-02-22] MEDS: Magnesium Sulfate/H2O 2 GM/50 ML PIGGYBACK IV ×2 (10:51→15:00)
[2025-02-22] MEDS: ondansetron HCL 4 MG/2 ML VIAL IVPUSH (19:40)
[2025-02-22] MEDS: carisoprodoL 350 MG TABLET PO (19:45)
[2025-02-22] MEDS: Atorvastatin Calcium 20 MG TABLET PO (19:45)
[2025-02-22] MEDS: Calcium Carbonate 750 MG TAB.CHEW PO (19:46)
[2025-02-22] MEDS: Mirtazapine 15 MG TABLET PO (19:46)
[2025-02-23] VITALS (7 sets, daily range): BP systolic 103–121; BP diastolic 55–67; PULSE 80–88; RESP 16–18; TEMP 36–36.7; O2SAT 94–97
[2025-02-23] MEDS: HYDROmorphone HCl 1 MG/ML SYRINGE IVPUSH ×4 (05:11→20:27)
[2025-02-23] MEDS: ondansetron HCL 4 MG/2 ML VIAL IVPUSH ×3 (05:12→20:34)
[2025-02-23 07:05] LABS: Anion Gap 8 (12-20); Blood Urea Nitrogen 4 mg/dL (9-16); Calcium 7.4 mg/dL (8.4-10.2); Carbon Dioxide 27 mmol/L (22-29); Chloride 101 mmol/L (96-108); Creatinine Clr Calc Pharmacy 97.8; Estimated Glomerular Filt Rate > 60; Glucose Random 87 mg/dL (60-115); Magnesium 1.6 mg/dL (1.6-2.6); Potassium 3.1 mmol/L (3.3-5.1); Sodium 133 mmol/L (135-145)
[2025-02-23] MEDS: Piperacillin Sodium/Tazobactam 3.375 GM in 0.9 % Sodium Chloride 50 ML IV ×4 (07:31→23:18)
[2025-02-23] MEDS: Apixaban 5 MG TABLET PO ×2 (07:41→20:38)
[2025-02-23] MEDS: Omeprazole 20 MG CAPSULE.DR PO (07:41)
[2025-02-23] MEDS: Amiodarone HCL 200 MG TABLET PO (07:41)
[2025-02-23] MEDS: Gabapentin 100 MG CAPSULE PO ×3 (07:41→23:22)
[2025-02-23] MEDS: carvediloL 6.25 MG TABLET PO ×2 (07:41→20:37)
[2025-02-23] MEDS: 0.9 % Sodium Chloride Flush 3 ML SYRINGE IVFLUSH ×3 (07:42→20:28)
[2025-02-23] MEDS: Colchicine 0.6 MG TABLET PO (07:44)
[2025-02-23] MEDS: Multivitamin TABLET 1 TAB PO (07:47)
--- NOTE | 2025-02-23 10:09 | PM.DS ---
DS: Providers Provider Date of Service: 02/27/25 Date of admission: 02/19/25 00:53 Date of discharge: 02/27/25 Primary care physician: Joi Rebollar MD Consults: 02/19/25 17:45 Consult to Wound Care Routine Reason for consultation: abd surgical scars/scabs DS: Diagnosis Discharge Diagnosis (1) Pancreatitis: Status: Acute DS: Summary Hospital Course Hospital Course: admission hpi Chief Complaint: Abdominal pain 65-year-old female with a past medical history of HTN, HLD, CAD, CHF, a flutter on Eliquis, IBS, history of pancreatitis, recent subtotal colectomy/hernia repair at [facility] on 01/07/2025 with resultant ileostomy bag. Followed by patient had admission to the ICU at [facility] from [id number] for pulmonary edema/pericardial effusion/anemia/new onset a flutter/intra-abdominal abscess/bacteremia-> patient was transferred to [facility] where she has abscess drained and treated conservatively, Finished a course of antibiotics and discharged home on 02/17/25. Presented back to the ER on 02/18/25 overnight with a chief complaint of abdominal pain. Patient reported that since she went home she has been having abdominal pain more so in the upper abdomen starting in the epigastrium and radiating to the back. Has been having nausea. Denies any fevers. Patient denies any diarrhea. Reports abdominal pain is 10/10 intensity and radiating to the back. Reports her surgical sites are healing well. Patient denies any urinary symptoms. Denies any chest pain or palpitations. Denies any alcohol use or tobacco use. Review of all other systems is negative except mentioned above ER course: Per ER team, patient has epigastric tenderness without guarding or rigidity. Lipase elevated to 298. CT abdomen pelvis showed findings concerning for pancreatitis/? Cholecystitis. Discussed with general surgery Dr. Dorantes who reviewed the images and mentioned that patient has an acute surgical intervention needed and admitted to medicine service. Hospital course: 65-year-old female with a past medical history of HTN, HLD, CAD, CHF, a flutter on Eliquis, IBS, history of pancreatitis, recent subtotal colectomy/hernia repair at [facility] on 01/07/2025 with resultant ileostomy bag. Followed by patient had admission to the ICU at [facility] from 01/20-01/25 for pulmonary edema/pericardial effusion/anemia/new onset a flutter/intra-abdominal abscess/bacteremia-> patient was transferred to [facility] where she has abscess drained and treated conservatively, Finished a course of antibiotics and discharged home on 02/17/25. Presented back to the ER on 02/18/25 overnight with a chief complaint of abdominal pain. Admitted for following acute pancreatitis. CT of abdomen and pelvis showed peripancreatic edema concerning for pancreatitis. Also noted biliary sludge and mild gallbladder wall thickening concerning for possible acute cholecystitis. Patient has slightly elevated liver enzymes, lipase level remain elevated. CT and pelvis further showed 1.8x4.4 cm abdominal wall gas/fluid collection along the midline of the anterior abdominal wall-represents phlegmon/abscess. Noted multiple peripherally enhancing collections along the lateral margin seen of the liver, right lower abdominal quadrant-represent interval improvement in the abscesses Also noted findings concerning for gastroenteritis, presently without symptoms of gastroenteritis. Patient was managed for acute pancreatitis with IVF, IV pain medication with dilaudid, was followed closely by surgery. She never had acute abdomen on exam, a HIDA scan showed no cholecystitis, patient was followed closely by surgery with no indication for intervention. HX subtotal colectomy/hernia repair: Surgical site healing. HypOmagnesemia, replaced and resolved and has supplement at home HypOkalemia corrected, has suppolement at home HX ileostomy: Ileostomy care per RN Cardiomyopathy: compensated A flutter: continue amiodarone. Continue home Eliquis Hypertension: Blood pressure on the low normal side. Will hold home antihypertensives for now Dispo: home with VNA Time Attestation Discharge Coordination Time (in mins): 50 Quality: Safe Use of Opioids Does Pt have an Active Cancer Diagnosis on the Problem List?: No Quality: Stroke Does the patient have a stroke diagnosis?: No Physical Exam Vital Signs: Vital Signs: Last Vital Signs Temp 97.8 F 02/23/25 07:38 Pulse 85 02/23/25 07:38 Resp 16 02/23/25 07:38 BP 105/59 L 02/23/25 07:38 Pulse Ox 94 02/23/25 07:38 O2 Del Method Room Air 02/23/25 07:38 BMI result Body Mass Index 27.3 DS: Data Data Completed and Pending Labs on day of discharge: Laboratory Results - last 24 hr 02/23/25 02/23/25 06:35 06:35 Hold Purple Top SEE NOTE Sodium 133 L Potassium 3.1 L Chloride 101 Carbon Dioxide 27 Anion Gap 8 L BUN 4 L Creatinine 0.51 Estim Creat Clear Calc 97.8 Estimated GFR > 60 Random Glucose 87 Calcium 7.4 L Magnesium 1.6 Cancelled Preliminary micro results at discharge 02/18/25 20:57 Blood Culture - Preliminary Blood - Venous No growth after 48 hours. 02/18/25 20:18 Blood Culture - Preliminary Blood - Venous No growth after 48 hours. Discharge Plan Discharge Anticipated Discharge Date/Time: 02/27/25 11:37 Patient Disposition: Home Health Service Discharge Diagnosis: Acute pancreatitis, hypOkalemia, hypomagnesemia Referrals: [facility] [Outside] - 1 Week Referral Note: resume services Joi Rebollar MD [Primary Care Provider, Internal Medicine] - 1 Week Gideon Ruvalcaba MD [Physician, General Surgery] - 2 Weeks Discharge Medications: Continued atorvastatin 20 mg tablet 20 mg PO BEDTIME Qty: 90 3RF mirtazapine 15 mg tablet 15 mg PO BEDTIME multivit with min-folic acid [Multivitamin Gummies] 200 mcg Tablet,Chewable 1 tab PO DAILY ondansetron 4 mg Tablet,Disintegrating 4 mg PO Q8H PRN (Reason: Nausea And Vomiting) carisoprodol 350 mg tablet 350 mg PO BEDTIME magnesium glycinate 100 mg magnesium capsule 400 mg PO DAILY amiodarone 200 mg tablet 200 mg PO DAILY hydromorphone 2 mg tablet 1 - 2 mg PO Q8H PRN (Reason: pain) gabapentin 100 mg capsule 100 mg PO Q8H colchicine 0.6 mg tablet 0.6 mg PO DAILY Eliquis 5 mg tablet 5 mg PO BID esomeprazole magnesium [Nexium] 20 mg capsule,delayed release(DR/EC) 20 mg PO DAILY@0630 carvedilol [Coreg] 6.25 mg tablet 6.25 mg PO BID 90 Days Qty: 180 3RF Rx Instructions: must administer with a meal/food Discharge Orders: Discharge Order (Routine); Ordered 02/27/25 Ordered By: David [facility] Diet: Advance to usual diet Activity on Discharge: As tolerated Stand Alone Forms: Patient Portal Discharge page Print Language: Slovenian Other Ambulatory Orders: Basic Metabolic Panel Fasting (Routine) Timeframe: 1 Week Facility: [facility] - Location: Laboratory Ordered By: David Guallpa Magnesium (Routine) Timeframe: 1 Week Facility: [facility] - Location: Laboratory Ordered By: David Guallpa Care Plan Goals: recovery from acute pancreatitis and Health Concerns: acute pancreatitis Plan of Treatment: continue taking all your medication as before includng supplement for magnesium and potassium to follow up with your PCP in a week, surgeon in 1 to 2 weeks eat a banana a day to help keep your potassium level Assessment: see above
--- NOTE | 2025-02-23 10:09 | HO.PM.IMPN ---
Subjective Subjective Date of Service: 02/23/25 Interval History: Reporting pain still, but better, She is reporting getting sick after eating meat loaf yesterday Physical Exam Vital Signs: Vital Signs: Last Vital Signs Temp 97.8 F 02/23/25 07:38 Pulse 85 02/23/25 07:38 Resp 16 02/23/25 07:38 BP 105/59 L 02/23/25 07:38 Pulse Ox 94 02/23/25 07:38 O2 Del Method Room Air 02/23/25 07:38 BMI result Body Mass Index 27.3 Const: Other: General: AO X 3, no acute distress Resp: CTA bilateral CVS: S1,S2,RRR GI: +BS,epig tenderness, no distention Skin: No rash Neuro: motor grossly intact Psych: appropriate affect Objective Data Active Medications Acetaminophen (Acetaminophen 325 Mg Tablet) 650 mg PO Q6H PRN PRN Reason: Pain, Mild 1-3,fever,headache Amiodarone HCl (Amiodarone Hcl 200 Mg Tablet) 200 mg PO DAILY [facility] Last Admin: 02/23/25 07:41 Dose: 200 mg Documented By: JESSE Apixaban (Apixaban 5 Mg Tablet) 5 mg PO BID [facility] Last Admin: 02/23/25 07:41 Dose: 5 mg Documented By: JESSE Atorvastatin Calcium (Atorvastatin Calcium 20 Mg Tablet) 20 mg PO BEDTIME [facility] Last Admin: 02/22/25 19:45 Dose: 20 mg Documented By: EUSEBIO Calcium Carbonate (Calcium Carbonate 750 Mg Tab.Chew) 750 mg PO Q4H PRN PRN Reason: Heartburn Last Admin: 02/22/25 19:46 Dose: 750 mg Documented By: EUSEBIO Comments: requested for heartburn Carisoprodol (Carisoprodol 350 Mg Tablet) 350 mg PO BEDTIME [facility] Last Admin: 02/22/25 19:45 Dose: 350 mg Documented By: EUSEBIO Carvedilol (Carvedilol 6.25 Mg Tablet) 6.25 mg PO BID [facility]; Protocol Last Admin: 02/23/25 07:41 Dose: 6.25 mg Documented By: JESSE Colchicine (Colchicine 0.6 Mg Tablet) 0.6 mg PO DAILY [facility] Last Admin: 02/23/25 07:44 Dose: 0.6 mg Documented By: JESSE Gabapentin (Gabapentin 100 Mg Capsule) 100 mg PO Q8H [facility] Last Admin: 02/23/25 07:41 Dose: 100 mg Documented By: JESSE Hydromorphone HCl (Hydromorphone Hcl 1 Mg/Ml Syringe) 1 mg IVPUSH Q4H PRN; Protocol PRN Reason: Breakthrough Pain Last Admin: 02/23/25 09:30 Dose: 1 mg Documented By: JESSE Piperacillin Sod/Tazobactam (Sod 3.375 gm/ Sodium Chloride) 50 mls @ 100 mls/hr IV Q6H [facility] Last Infusion: 02/23/25 08:01 Dose: Infused Documented By: JESSE Magnesium Hydroxide (Milk Of Magnesia 30 Ml Oral.Susp) 30 ml PO DAILY PRN PRN Reason: Constipation Melatonin (Melatonin 3 Mg Tablet) 6 mg PO BEDTIME PRN PRN Reason: Insomnia Metoclopramide HCl (Metoclopramide Hcl 10 Mg/2 Ml Vial) 5 mg IVPUSH Q6H PRN PRN Reason: Nausea and Vomiting Last Admin: 02/20/25 05:56 Dose: 5 mg Documented By: JOSE Mirtazapine (Mirtazapine 15 Mg Tablet) 15 mg PO BEDTIME [facility] Last Admin: 02/22/25 19:46 Dose: 15 mg Documented By: EUSEBIO Multivitamins/Vitamin C (Multivitamin Tablet) 1 tab PO DAILY [facility] Last Admin: 02/23/25 07:47 Dose: 1 tab Documented By: JESSE Omeprazole (Omeprazole [address] 20 mg PO DAILY@0630 [facility] Last Admin: 02/23/25 07:41 Dose: 20 mg Documented By: JESSE Ondansetron HCl (Ondansetron Hcl 4 Mg/2 Ml Vial) 4 mg IVPUSH Q6H PRN PRN Reason: Nausea and Vomiting Last Admin: 02/23/25 05:12 Dose: 4 mg Documented By: GILBERT Sodium Chloride (0.9 % Sodium Chloride Flush 3 Ml Syringe) [facility] Last Admin: 02/23/25 07:42 Dose: 3 ml Documented By: JESSE Labs 02/22/25 08:17 02/23/25 06:35 Labs: Laboratory Results - last 24 hr 02/23/25 02/23/25 06:35 06:35 Hold Purple Top SEE NOTE Anion Gap 8 L Estim Creat Clear Calc 97.8 Estimated GFR > 60 Random Glucose 87 Calcium 7.4 L Magnesium 1.6 Cancelled Assessment and Plan (1) Pancreatitis: Status: Acute Plan 65-year-old female with a past medical history of HTN, HLD, CAD, CHF, a flutter on Eliquis, IBS, history of pancreatitis, recent subtotal colectomy/hernia repair at [facility] on 01/07/2025 with resultant ileostomy bag. Followed by patient had admission to the ICU at [facility] from 01/20-01/25 for pulmonary edema/pericardial effusion/anemia/new onset a flutter/intra-abdominal abscess/bacteremia-> patient was transferred to [facility] where she has abscess drained and treated conservatively, Finished a course of antibiotics and discharged home on 02/17/25. Presented back to the ER on 02/18/25 overnight with a chief complaint of abdominal pain. Admitted for following Abdominal pain CT and pelvis showed peripancreatic edema concerning for pancreatitis. Also noted biliary sludge and mild gallbladder wall thickening concerning for possible acute cholecystitis. Patient has slightly elevated liver enzymes, lipase level remain elevated. CT and pelvis also showed 1.8x4.4 cm abdominal wall gas/fluid collection along the midline of the anterior abdominal wall-represents phlegmon/abscess. Noted multiple peripherally enhancing collections along the lateral margin seen of the liver, right lower abdominal quadrant-represent interval improvement in the abscesses Also noted findings concerning for gastroenteritis. Will continue Dilaudid p.r.n. for pain control advance diet as mela Continue empiric Zosyn for now HIDA scan no definitive cholecystitis Surgery following, HX subtotal colectomy/hernia repair: Surgical site healing. HX ileostomy: Ileostomy care per RN Cardiomyopathy: compensated A flutter: continue amiodarone. Continue home Eliquis Hypertension: Blood pressure on the low normal side. Will hold home antihypertensives for now Hypomagnesemia and hypokalemia IV mag, K is now normal DVT prophylaxis: Patient on Eliquis Code status: Full code probable discharge tomorrow Quality Stroke Does the patient have a stroke diagnosis?: No VTE Prior VTE?: No VTE Risk Level:: Medical - moderate - high VTE Device Contraindication: Treatment Not Indicated VTE Drug Contraindication: N/A - Med Ordered
[2025-02-23] MEDS: Potassium Chloride/H20 10 MEQ/100 ML PIGGYBACK 100 MEQ IV ×2 (10:43→12:15)
--- NOTE | 2025-02-23 11:29 | P.PNGS_ITS ---
Subjective Subjective Date of Service: 02/23/25 Interval history: Says she is okay today Stoma functioning well Taking some regular diet but intake marginal Occasional pain Physical Exam 2 Vital Signs: Vital Signs: Last Vital Signs Temp 97.8 F 02/23/25 07:38 Pulse 85 02/23/25 07:38 Resp 16 02/23/25 07:38 BP 105/59 L 02/23/25 07:38 Pulse Ox 94 02/23/25 07:38 O2 Del Method Room Air 02/23/25 07:38 BMI result Body Mass Index 27.3 Const: General: comfortable and no acute distress Resp: Effort & Inspection: normal respiratory effort Cardio: Rate: regular rate GI: Other: Stoma with output Palpation (GI): Soft to palpation, not firm, nontender and no guarding Objective Data Active Medications Acetaminophen (Acetaminophen 325 Mg Tablet) 650 mg PO Q6H PRN PRN Reason: Pain, Mild 1-3,fever,headache Amiodarone HCl (Amiodarone Hcl 200 Mg Tablet) 200 mg PO DAILY [facility] Last Admin: 02/23/25 07:41 Dose: 200 mg Documented By: JESSE Apixaban (Apixaban 5 Mg Tablet) 5 mg PO BID [facility] Last Admin: 02/23/25 07:41 Dose: 5 mg Documented By: JESSE Atorvastatin Calcium (Atorvastatin Calcium 20 Mg Tablet) 20 mg PO BEDTIME [facility] Last Admin: 02/22/25 19:45 Dose: 20 mg Documented By: EUSEBIO Calcium Carbonate (Calcium Carbonate 750 Mg Tab.Chew) 750 mg PO Q4H PRN PRN Reason: Heartburn Last Admin: 02/22/25 19:46 Dose: 750 mg Documented By: EUSEBIO Comments: requested for heartburn Carisoprodol (Carisoprodol 350 Mg Tablet) 350 mg PO BEDTIME [facility] Last Admin: 02/22/25 19:45 Dose: 350 mg Documented By: EUSEBIO Carvedilol (Carvedilol 6.25 Mg Tablet) 6.25 mg PO BID [facility]; Protocol Last Admin: 02/23/25 07:41 Dose: 6.25 mg Documented By: JESSE Colchicine (Colchicine 0.6 Mg Tablet) 0.6 mg PO DAILY [facility] Last Admin: 02/23/25 07:44 Dose: 0.6 mg Documented By: JESSE Gabapentin (Gabapentin 100 Mg Capsule) 100 mg PO Q8H [facility] Last Admin: 02/23/25 07:41 Dose: 100 mg Documented By: JESSE Hydromorphone HCl (Hydromorphone Hcl 1 Mg/Ml Syringe) 1 mg IVPUSH Q4H PRN; Protocol PRN Reason: Breakthrough Pain Last Admin: 02/23/25 09:30 Dose: 1 mg Documented By: JESSE Piperacillin Sod/Tazobactam (Sod 3.375 gm/ Sodium Chloride) 50 mls @ 100 mls/hr IV Q6H [facility] Last Infusion: 02/23/25 08:01 Dose: Infused Documented By: JESSE Potassium Chloride (Potassium Chloride/H20) 10 meq in 100 mls @ 100 mls/hr IV Q1H [facility] Stop: 02/23/25 12:59 Last Admin: 02/23/25 10:43 Dose: 100 mls/hr Documented By: JESSE Magnesium Hydroxide (Milk Of Magnesia 30 Ml Oral.Susp) 30 ml PO DAILY PRN PRN Reason: Constipation Melatonin (Melatonin 3 Mg Tablet) 6 mg PO BEDTIME PRN PRN Reason: Insomnia Metoclopramide HCl (Metoclopramide Hcl 10 Mg/2 Ml Vial) 5 mg IVPUSH Q6H PRN PRN Reason: Nausea and Vomiting Last Admin: 02/20/25 05:56 Dose: 5 mg Documented By: JOSE Mirtazapine (Mirtazapine 15 Mg Tablet) 15 mg PO BEDTIME [facility] Last Admin: 02/22/25 19:46 Dose: 15 mg Documented By: EUSEBIO Multivitamins/Vitamin C (Multivitamin Tablet) 1 tab PO DAILY [facility] Last Admin: 02/23/25 07:47 Dose: 1 tab Documented By: JESSE Omeprazole (Omeprazole 20 Mg Capsule.) 20 mg PO DAILY@0630 [facility] Last Admin: 02/23/25 07:41 Dose: 20 mg Documented By: JESSE Ondansetron HCl (Ondansetron Hcl 4 Mg/2 Ml Vial) 4 mg IVPUSH Q6H PRN PRN Reason: Nausea and Vomiting Last Admin: 02/23/25 05:12 Dose: 4 mg Documented By: GILBERT Sodium Chloride (0.9 % Sodium Chloride Flush 3 Ml Syringe) [facility] Last Admin: 02/23/25 07:42 Dose: 3 ml Documented By: JESSE Labs 02/22/25 08:17 02/23/25 06:35 Labs: Laboratory Results - last 24 hr 02/23/25 02/23/25 06:35 06:35 Hold Purple Top SEE NOTE Anion Gap 8 L Estim Creat Clear Calc 97.8 Estimated GFR > 60 Random Glucose 87 Calcium 7.4 L Magnesium 1.6 Cancelled Procedures Date of Service Date of Service: 02/23/25 Progress Note: A&P Assessment and plan (1) Pancreatitis: Status: Acute Assessment and Plan: Abdominal pain on admission likely to be multifactorial Good GI function so far Increase oral intake Stoma care Abdomen is soft and benign Encouraged ambulation We will follow up Clinically doing well Time Spent With Patient Time: Total time managing care of this patient today ____ minutes. Quality Stroke Does the patient have a stroke diagnosis?: No VTE Prior VTE?: No VTE Risk Level:: Medical - moderate - high VTE Device Contraindication: Treatment Not Indicated VTE Drug Contraindication: N/A - Med Ordered
[2025-02-23] MEDS: carisoprodoL 350 MG TABLET PO (20:38)
[2025-02-23] MEDS: Mirtazapine 15 MG TABLET PO (20:38)
[2025-02-23] MEDS: Atorvastatin Calcium 20 MG TABLET PO (20:38)
[2025-02-24] VITALS (7 sets, daily range): BP systolic 95–124; BP diastolic 53–70; PULSE 78–91; RESP 16–18; TEMP 36–36.8; O2SAT 94–98
[2025-02-24] MEDS: HYDROmorphone HCl 1 MG/ML SYRINGE IVPUSH ×3 (03:01→19:56)
[2025-02-24] MEDS: Piperacillin Sodium/Tazobactam 3.375 GM in 0.9 % Sodium Chloride 50 ML IV ×4 (06:08→23:26)
[2025-02-24] MEDS: Omeprazole 20 MG CAPSULE.DR PO (06:09)
--- NOTE | 2025-02-24 07:13 | P.PNGS_ITS ---
Subjective Subjective Date of Service: 02/24/25 <Kia Marcus - Last Filed: 02/24/25 07:28> 02/24/25 <Kannna Chappell PA-C - Last Filed: 02/24/25 07:45> 02/24/25 <Gideon Ruvalcaba MD - Last Filed: 02/24/25 08:40> Interval history: Kia Phelps is a 65 y/o F with acute pancreatitis and a PMH of colostomy with ostomy, just diagnosed with atrial flutter and pulmonary edema. No overnight events. Patient reports overnight pain 06/13 on IV dilaudid. No nausea this AM, improving from yesterday. No vomiting, fever, or chills. Patient ambulating with assistance. Passing bowel movements and flatulence. Ostomy filled with green, grainy contents. Ostomy changed 1x last night. Regular diet, causing discomfort. Requests lipase. <Kia Marcus - Last Filed: 02/24/25 07:28> Physical Exam 2 Vital Signs: Vital Signs: Last Vital Signs Temp 96.9 F 02/24/25 02:59 Pulse 83 02/24/25 02:59 Resp 16 02/24/25 02:59 BP 98/53 L 02/24/25 02:59 Pulse Ox 97 02/24/25 02:59 O2 Del Method Room Air 02/24/25 02:59 BMI result Body Mass Index 27.3 <Kia [place]field - Last Filed: 02/24/25 07:28> Const: General: tired appearing <Kia Marcus - Last Filed: 02/24/25 07:28> General: no acute distress <Kannan Chappell PA-C - Last Filed: 02/24/25 07:45> Orientation/consciousness: patient oriented x3 <Kia Marcus - Last Filed: 02/24/25 07:28> HEENT: Head: Yes normal to inspection <Kia [place] - Last Filed: 02/24/25 07:28> Eyes: General: appearance normal, both eyes and all related structures < Kia [place] - Last Filed: 02/24/25 07:28> Chest: Chest palpation & inspection: normal inspection of the chest < Kia [place]field - Last Filed: 02/24/25 07:28> Resp: Effort & Inspection: normal respiratory effort <Kia [place] - Last Filed: 02/24/25 07:28> GI: Other: Soft, tender to palpation a 5/10, non-distended, ostomy attached with green contents <Kia [place]field - Last Filed: 02/24/25 07:28> : Other: No perez in place <Kia [place] - Last Filed: 02/24/25 07:28> Neuro: General: patient oriented x3 <Kia Marcus - Last Filed: 02/24/25 07:28> Extrem: Other: Dorsalis pedis pulses 2+ bilaterally <Kia Marcus - Last Filed: 02/24/25 07:28> Psych: Mental Status: mental status grossly normal <Kia [place] - Last Filed: 02/24/25 07:28> Objective Data Active Medications Acetaminophen (Acetaminophen 325 Mg Tablet) 650 mg PO Q6H PRN PRN Reason: Pain, Mild 1-3,fever,headache Amiodarone HCl (Amiodarone Hcl 200 Mg Tablet) 200 mg PO DAILY [facility] Last Admin: 02/23/25 07:41 Dose: 200 mg Documented By: JESSE Apixaban (Apixaban 5 Mg Tablet) 5 mg PO BID [facility] Last Admin: 02/23/25 20:38 Dose: 5 mg Documented By: ARPITA Atorvastatin Calcium (Atorvastatin Calcium 20 Mg Tablet) 20 mg PO BEDTIME [facility] Last Admin: 02/23/25 20:38 Dose: 20 mg Documented By: ARPITA Calcium Carbonate (Calcium Carbonate 750 Mg Tab.Chew) 750 mg PO Q4H PRN PRN Reason: Heartburn Last Admin: 02/22/25 19:46 Dose: 750 mg Documented By: EUSEBIO Comments: requested for heartburn Carisoprodol (Carisoprodol 350 Mg Tablet) 350 mg PO BEDTIME [facility] Last Admin: 02/23/25 20:38 Dose: 350 mg Documented By: ARPITA Carvedilol (Carvedilol 6.25 Mg Tablet) 6.25 mg PO BID [facility]; Protocol Last Admin: 02/23/25 20:37 Dose: 6.25 mg Documented By: ARPITA Colchicine (Colchicine 0.6 Mg Tablet) 0.6 mg PO DAILY [facility] Last Admin: 02/23/25 07:44 Dose: 0.6 mg Documented By: JESSE Gabapentin (Gabapentin 100 Mg Capsule) 100 mg PO Q8H [facility] Last Admin: 02/23/25 23:22 Dose: 100 mg Documented By: ARPITA Comments: given per pt request slightly early for pt do not want to be woken up at 0115 for gabapentin Hydromorphone HCl (Hydromorphone Hcl 1 Mg/Ml Syringe) 1 mg IVPUSH Q4H PRN; Protocol PRN Reason: Breakthrough Pain Last Admin: 02/24/25 03:01 Dose: 1 mg Documented By: ARPITA Piperacillin Sod/Tazobactam (Sod 3.375 gm/ Sodium Chloride) 50 mls @ 100 mls/hr IV Q6H [facility] Last Infusion: 02/24/25 06:52 Dose: Infused Documented By: ARPITA Magnesium Hydroxide (Milk Of Magnesia 30 Ml Oral.Susp) 30 ml PO DAILY PRN PRN Reason: Constipation Melatonin (Melatonin 3 Mg Tablet) 6 mg PO BEDTIME PRN PRN Reason: Insomnia Metoclopramide HCl (Metoclopramide Hcl 10 Mg/2 Ml Vial) 5 mg IVPUSH Q6H PRN PRN Reason: Nausea and Vomiting Last Admin: 02/20/25 05:56 Dose: 5 mg Documented By: JOSE Mirtazapine (Mirtazapine 15 Mg Tablet) 15 mg PO BEDTIME [facility] Last Admin: 02/23/25 20:38 Dose: 15 mg Documented By: ARPITA Multivitamins/Vitamin C (Multivitamin Tablet) 1 tab PO DAILY [facility] Last Admin: 02/23/25 07:47 Dose: 1 tab Documented By: JESSE Omeprazole (Omeprazole 20 Mg Capsule.Dr) 20 mg PO DAILY@0630 [facility] Last Admin: 02/24/25 06:09 Dose: 20 mg Documented By: ARPITA Ondansetron HCl (Ondansetron Hcl 4 Mg/2 Ml Vial) 4 mg IVPUSH Q6H PRN PRN Reason: Nausea and Vomiting Last Admin: 02/23/25 20:34 Dose: 4 mg Documented By: ARPITA Sodium Chloride (0.9 % Sodium Chloride Flush 3 Ml Syringe) 3 ml IVFLUSH QSHIFT [facility] Last Admin: 02/23/25 20:28 Dose: 3 ml Documented By: ARPITA <Kia Velazquez - Last Filed: 02/24/25 07:28> Labs CBC & Chem 7: 02/22/25 08:17 02/23/25 06:35 <Kia Velazquez - Last Filed: 02/24/25 07:28> Microbiology Microbiology Results: Microbiology 02/18/25 20:57 Blood Culture - Final Blood - Venous No growth after 5 days. 02/18/25 20:18 Blood Culture - Final Blood - Venous No growth after 5 days. <Kia Velazquez - Last Filed: 02/24/25 07:28> Procedures Date of Service Date of Service: 02/24/25 <Kia Velazquez - Last Filed: 02/24/25 07:28> 02/24/25 <Kannan Chappell PA-C - Last Filed: 02/24/25 07:45> 02/24/25 <Gideon Ruvalcaba MD - Last Filed: 02/24/25 08:40> Progress Note: A&P Assessment and plan (1) Pancreatitis: Status: Acute <Kia Marcus - Last Filed: 02/24/25 07:28> Assessment and Plan: States she had problems with the stoma appliance coming off last night Also complains of sharp pains Says she has not been eating much Abdomen is soft and benign Stoma functioning well Encouraged oral intake Pain management Seen and examined independently <Gideon Ruvalcaba MD - Last Filed: 02/24/25 08:40> Assessment and Plan: 65 y/o F with acute pancreatitis with a PMH of colostomy with ostomy bag, complicated by multiple abscesses, stable. Pain overnight rated 10/10 on IV dilaudid. No nausea, vomiting, fevers, or chills reported. Ambulating with assistance, passing bowel movements and flatulence. Reports poor tolerance of solid foods. Continue 1 mg IV dilaudid for pain control. Run CBC to assess WBC for any infection. Continue encouraging and monitoring tolerance of regular diet. < Kia Velazquez - Last Filed: 02/24/25 07:28> 65 y/o F with acute pancreatitis with a PMH of colostomy with ostomy bag, complicated by multiple abscesses, stable. Pain overnight rated 10/10 on IV dilaudid. No nausea, vomiting, fevers, or chills reported. Ambulating with assistance, passing bowel movements and flatulence. Reports poor tolerance of solid foods. Continue 1 mg IV dilaudid for pain control. Continue encouraging and monitoring tolerance of regular diet. Patient seen and evaluated independently, I agree with the above assesment and plan. Patient overall doing well. Will continue with regualr diet pain control as needed ordered repeat BMP and lipase ambulation as tolerated <Kannan Chappell PA-C - Last Filed: 02/24/25 07:45> Time Spent With Patient Time: Total time managing care of this patient today ____ minutes. <Kia Velazquez - Last Filed: 02/24/25 07:28> Quality Stroke Does the patient have a stroke diagnosis?: No <Kia Velazquez - Last Filed: 02/24/25 07:28> VTE Prior VTE?: No <Kia Velazquez - Last Filed: 02/24/25 07:28> VTE Risk Level:: Medical - moderate - high <Kia Velazquez - Last Filed: 02/24/25 07:28> VTE Device Contraindication: Treatment Not Indicated <Kia Velazquez - Last Filed: 02/24/25 07:28> VTE Drug Contraindication: N/A - Med Ordered <Kia Velazquez - Last Filed: 02/24/25 07:28>
[2025-02-24] MEDS: 0.9 % Sodium Chloride Flush 3 ML SYRINGE IVFLUSH ×3 (09:21→21:13)
[2025-02-24] MEDS: carvediloL 6.25 MG TABLET PO ×2 (09:24→21:00)
[2025-02-24] MEDS: Amiodarone HCL 200 MG TABLET PO (09:28)
[2025-02-24] MEDS: Apixaban 5 MG TABLET PO ×2 (09:28→21:01)
[2025-02-24] MEDS: Gabapentin 100 MG CAPSULE PO ×3 (09:28→23:26)
[2025-02-24] MEDS: Multivitamin TABLET 1 TAB PO (09:28)
[2025-02-24] MEDS: Colchicine 0.6 MG TABLET PO (09:28)
[2025-02-24 09:31] LABS: Anion Gap 10 (12-20); Blood Urea Nitrogen 4 mg/dL (9-16); Calcium 7.6 mg/dL (8.4-10.2); Carbon Dioxide 28 mmol/L (22-29); Chloride 100 mmol/L (96-108); Creatinine Clr Calc Pharmacy 95.9; Estimated Glomerular Filt Rate > 60; Glucose Random 76 mg/dL (60-115); Lipase 239 U/L (8-78); Potassium 3.1 mmol/L (3.3-5.1); Sodium 135 mmol/L (135-145)
--- NOTE | 2025-02-24 11:31 | MHC.CM.PN ---
Per MD rounds, patient not medically cleared for dc. No change to dc plan - home, resume [facility] services. CM will continue to follow.
[2025-02-24] MEDS: Potassium Chloride/H20 10 MEQ/100 ML PIGGYBACK 100 MEQ IV ×2 (18:51→19:51)
[2025-02-24] MEDS: ondansetron HCL 4 MG/2 ML VIAL IVPUSH (19:56)
[2025-02-24] MEDS: Mirtazapine 15 MG TABLET PO (21:00)
[2025-02-24] MEDS: carisoprodoL 350 MG TABLET PO (21:00)
[2025-02-24] MEDS: Atorvastatin Calcium 20 MG TABLET PO (21:00)
[2025-02-25] VITALS (7 sets, daily range): BP systolic 103–117; BP diastolic 56–64; PULSE 78–97; RESP 16–18; TEMP 36–36.9; O2SAT 93–97
[2025-02-25] MEDS: HYDROmorphone HCl 1 MG/ML SYRINGE IVPUSH ×3 (05:20→20:07)
[2025-02-25] MEDS: Omeprazole 20 MG CAPSULE.DR PO (05:21)
[2025-02-25] MEDS: Piperacillin Sodium/Tazobactam 3.375 GM in 0.9 % Sodium Chloride 50 ML IV ×3 (05:25→17:53)
[2025-02-25 06:29] LABS: Anion Gap 12 (12-20); Blood Urea Nitrogen 4 mg/dL (9-16); Calcium 7.9 mg/dL (8.4-10.2); Carbon Dioxide 26 mmol/L (22-29); Chloride 101 mmol/L (96-108); Creatinine Clr Calc Pharmacy 97.8; Estimated Glomerular Filt Rate > 60; Glucose Random 73 mg/dL (60-115); Potassium 2.9 mmol/L (3.3-5.1); Sodium 136 mmol/L (135-145)
--- NOTE | 2025-02-25 06:51 | MHC.PIE ---
p; pt refusing potassium pill or liquid,pt reports hx of IBS and pt reports her stomach can't handle it i; dr ayala notified e; will cont to monitor
--- NOTE | 2025-02-25 06:54 | P.PNGS_ITS ---
Subjective Subjective Date of Service: 02/25/25 <Kia Marcus - Last Filed: 02/25/25 07:08> 02/25/25 <Kannan Chappell PA-C - Last Filed: 02/25/25 08:23> 02/25/25 <Gideon Ruvalcaba MD - Last Filed: 02/25/25 08:36> Interval history: Kia Phelps is a 65 y/o F with acute pancreatitis and a PMH of colostomy with ostomy. No acute overnight events. Pain improved from last night, rated a 5/10 this AM. No nausea, improved from last night. No fever or chills. Ambulating. Tolerating bland regular diet. Ins: 2x IV dilaudid over 12 hours, IV lactated ringer, IV zofran. <Kia Marcus - Last Filed: 02/25/25 07:08> Physical Exam 2 Vital Signs: Vital Signs: Last Vital Signs Temp 96.8 F 02/25/25 03:06 Pulse 78 02/25/25 03:06 Resp 16 02/25/25 03:06 BP 108/56 L 02/25/25 03:06 Pulse Ox 97 02/25/25 03:06 O2 Del Method Room Air 02/25/25 03:06 BMI result Body Mass Index 27.3 <Kia Marcus - Last Filed: 02/25/25 07:08> Const: General: no acute distress <Kia Marcus - Last Filed: 02/25/25 07:08> General: comfortable <Kanann Chappell PA-C - Last Filed: 02/25/25 08:23> Orientation/consciousness: patient oriented x3 <Kia Marcus - Last Filed: 02/25/25 07:08> HEENT: Head: Yes normal to inspection <Kia [place] - Last Filed: 02/25/25 07:08> Chest: Chest palpation & inspection: normal inspection of the chest < Kia [place] - Last Filed: 02/25/25 07:08> Resp: Effort & Inspection: normal respiratory effort <Kia [place] - Last Filed: 02/25/25 07:08> Cardio: Other: no murmurs appreciated <Kia [place] - Last Filed: 02/25/25 07:08> GI: Other: Soft, tender to palpation, non-distended, ostomy in place with green, liquidy contents <Kia Marcus - Last Filed: 02/25/25 07:08> Inspection: No distended <Kannan Chappell PA-C - Last Filed: 02/25/25 08:23> Palpation (GI): Soft to palpation, Tenderness to palpation present (GI) (epigastric) and no guarding <Kannan Chappell PA-C - Last Filed: 02/25/25 08:23> Neuro: General: patient oriented x3 <Kia [place]ap - Last Filed: 02/25/25 07:08> Extrem: Other: no edema, petechiae appreciated on left ankles, dorsalis pedis pulses 2+ bilaterally <Kia Marcus - Last Filed: 02/25/25 07:08> Psych: Mental Status: mental status grossly normal <Kia [place]ap - Last Filed: 02/25/25 07:08> Objective Data Active Medications Acetaminophen (Acetaminophen 325 Mg Tablet) 650 mg PO Q6H PRN PRN Reason: Pain, Mild 1-3,fever,headache Amiodarone HCl (Amiodarone Hcl 200 Mg Tablet) 200 mg PO DAILY [facility] Last Admin: 02/24/25 09:28 Dose: 200 mg Documented By: MARQUIS Apixaban (Apixaban 5 Mg Tablet) 5 mg PO BID [facility] Last Admin: 02/24/25 21:01 Dose: 5 mg Documented By: ARPITA Atorvastatin Calcium (Atorvastatin Calcium 20 Mg Tablet) 20 mg PO BEDTIME [facility] Last Admin: 02/24/25 21:00 Dose: 20 mg Documented By: ARPITA Calcium Carbonate (Calcium Carbonate 750 Mg Tab.Chew) 750 mg PO Q4H PRN PRN Reason: Heartburn Last Admin: 02/22/25 19:46 Dose: 750 mg Documented By: EUSEBIO Comments: requested for heartburn Carvedilol (Carvedilol 6.25 Mg Tablet) 6.25 mg PO BID [facility]; Protocol Last Admin: 02/24/25 21:00 Dose: 6.25 mg Documented By: ARPITA Colchicine (Colchicine 0.6 Mg Tablet) 0.6 mg PO DAILY [facility] Last Admin: 02/24/25 09:28 Dose: 0.6 mg Documented By: MAQRUIS Gabapentin (Gabapentin 100 Mg Capsule) 100 mg PO Q8H [facility] Last Admin: 02/24/25 23:26 Dose: 100 mg Documented By: ARPITA Hydromorphone HCl (Hydromorphone Hcl 1 Mg/Ml Syringe) 1 mg IVPUSH Q4H PRN; Protocol PRN Reason: Pain, Severe (Pain Scale 7-10) Last Admin: 02/25/25 05:20 Dose: 1 mg Documented By: ARPITA Piperacillin Sod/Tazobactam (Sod 3.375 gm/ Sodium Chloride) 50 mls @ 100 mls/hr IV Q6H [facility] Last Infusion: 02/25/25 06:01 Dose: Infused Documented By: ARPITA Potassium Chloride (Potassium Chloride/H20) 10 meq in 100 mls @ 100 mls/hr IV Q1H [facility] Stop: 02/25/25 10:59 Magnesium Hydroxide (Milk Of Magnesia 30 Ml Oral.Susp) 30 ml PO DAILY PRN PRN Reason: Constipation Melatonin (Melatonin 3 Mg Tablet) 6 mg PO BEDTIME PRN PRN Reason: Insomnia Metoclopramide HCl (Metoclopramide Hcl 10 Mg/2 Ml Vial) 5 mg IVPUSH Q6H PRN PRN Reason: Nausea and Vomiting Last Admin: 02/20/25 05:56 Dose: 5 mg Documented By: JOSE Mirtazapine (Mirtazapine 15 Mg Tablet) 15 mg PO BEDTIME [facility] Last Admin: 02/24/25 21:00 Dose: 15 mg Documented By: ARPITA Multivitamins/Vitamin C (Multivitamin Tablet) 1 tab PO DAILY [facility] Last Admin: 02/24/25 09:28 Dose: 1 tab Documented By: MARQUIS Omeprazole (Omeprazole 20 Mg Capsule.Dr) 20 mg PO DAILY@0630 [facility] Last Admin: 02/25/25 05:21 Dose: 20 mg Documented By: ARPITA Ondansetron HCl (Ondansetron Hcl 4 Mg/2 Ml Vial) 4 mg IVPUSH Q6H PRN PRN Reason: Nausea and Vomiting Last Admin: 02/24/25 19:56 Dose: 4 mg Documented By: ARPITA Sodium Chloride (0.9 % Sodium Chloride Flush 3 Ml Syringe) 3 ml IVFLUSH QSHIFT [facility] Last Admin: 02/24/25 21:13 Dose: 3 ml Documented By: ARPITA <Kia Lyonstus - Last Filed: 02/25/25 07:08> Labs CBC & Chem 7: 02/22/25 08:17 02/25/25 05:08 <Kia Lyonstus - Last Filed: 02/25/25 07:08> Labs: Laboratory Results - last 24 hr 02/24/25 02/25/25 08:53 05:08 Hold Purple Top SEE NOTE Anion Gap 10 L 12 Estim Creat Clear Calc 95.9 97.8 Estimated GFR > 60 > 60 Random Glucose 76 73 Calcium 7.6 L 7.9 L Lipase 239 H <Kia Lyonstus - Last Filed: 02/25/25 07:08> Procedures Date of Service Date of Service: 02/25/25 <Kia Marcus - Last Filed: 02/25/25 07:08> 02/25/25 <Kannan Chappell PA-C - Last Filed: 02/25/25 08:23> 02/25/25 <Gideon Ruvalcaba MD - Last Filed: 02/25/25 08:36> Progress Note: A&P Assessment and plan (1) Pancreatitis: Status: Acute <Kia Lyonstus - Last Filed: 02/25/25 07:08> Assessment and Plan: Some sharp pains She states that she feels her oral intake is getting better Good stoma function Ambulated well yesterday Continue increase level of activity Encouraged to increase oral intake Replace potassium Pain management Looks well overall Seen and examined independently <Gideon Ruvalcaba MD - Last Filed: 02/25/25 08:36> Assessment and Plan: 65 y/o F with acute pancreatitis and a PMH of colostomy with ileostomy, stable. Pain rated a 5/10 this AM, improved from last night, managed with IV dilaudid. No nausea this AM, improved from last night, managed with IV zofran. Tolerating bland solids. Abdomen soft, non-distended, tender to palpation. Ostomy contains green liquid. Potassium at 2.9, BUN at 4, Cr at 0.51, lipase at 239. Continue IV dilaudid for pain management. Order IV potassium, as patient reports intolerance to PO potassium. Continue encouraging ambulation. < Kia Velazquez - Last Filed: 02/25/25 07:08> 65 y/o F with acute pancreatitis and a PMH of colostomy with ileostomy, stable. Pain rated a 5/10 this AM, improved from last night, managed with IV dilaudid. No nausea this AM, improved from last night, managed with IV zofran. Tolerating bland solids. Abdomen soft, non-distended, tender to palpation. Ostomy contains green liquid. Potassium at 2.9, BUN at 4, Cr at 0.51, lipase at 239. Continue IV dilaudid for pain management. Order IV potassium, as patient reports intolerance to PO potassium. Continue encouraging ambulation. Patient seen and evaluated independently, I agree with the above assessment and plan. We will continue with IV abx, diet as tolerated. recommend ambulation, pain control as needed. Patient was also found to have hypokalemia, discussed with hospitlaist team who will repleat today. Lipase trending down. <Kannan Chappell PA-C - Last Filed: 02/25/25 08:23> Time Spent With Patient Time: Total time managing care of this patient today ____ minutes. <Kia Velazquez - Last Filed: 02/25/25 07:08> Quality Stroke Does the patient have a stroke diagnosis?: No <Kia Velazquez - Last Filed: 02/25/25 07:08> VTE Prior VTE?: No <Kia Velazquez - Last Filed: 02/25/25 07:08> VTE Risk Level:: Medical - moderate - high <Kia Velazquez - Last Filed: 02/25/25 07:08> VTE Device Contraindication: Treatment Not Indicated <Kia Velazquez - Last Filed: 02/25/25 07:08> VTE Drug Contraindication: N/A - Med Ordered <Kia Velazquez - Last Filed: 02/25/25 07:08>
[2025-02-25] MEDS: Potassium Chloride/H20 10 MEQ/100 ML PIGGYBACK 100 MEQ IV ×4 (07:35→11:29)
[2025-02-25 07:54] LABS: Magnesium 1.5 mg/dL (1.6-2.6)
[2025-02-25] MEDS: Colchicine 0.6 MG TABLET PO (08:43)
[2025-02-25] MEDS: Amiodarone HCL 200 MG TABLET PO (08:43)
[2025-02-25] MEDS: Apixaban 5 MG TABLET PO ×2 (08:43→20:16)
[2025-02-25] MEDS: Multivitamin TABLET 1 TAB PO (08:43)
[2025-02-25] MEDS: Gabapentin 100 MG CAPSULE PO ×2 (08:43→16:55)
--- NOTE | 2025-02-25 08:50 | HO.PM.IMPN ---
Subjective Subjective Date of Service: 02/25/25 Interval History: She is still reporting pain and lipase level remains high, potassium level low, she will only take IV Potassium Physical Exam Vital Signs: Vital Signs: Last Vital Signs Temp 97.9 F 02/25/25 07:45 Pulse 84 02/25/25 07:45 Resp 16 02/25/25 07:45 BP 105/64 02/25/25 07:45 Pulse Ox 96 02/25/25 07:45 O2 Del Method Room Air 02/25/25 07:45 BMI result Body Mass Index 27.3 Const: Other: General: AO X 3, no acute distress Resp: CTA bilateral CVS: S1,S2,RRR GI: +BS,epig tenderness, no distention Skin: No rash Neuro: motor grossly intact Psych: appropriate affect Objective Data Active Medications Acetaminophen (Acetaminophen 325 Mg Tablet) 650 mg PO Q6H PRN PRN Reason: Pain, Mild 1-3,fever,headache Amiodarone HCl (Amiodarone Hcl 200 Mg Tablet) 200 mg PO DAILY [facility] Last Admin: 02/25/25 08:43 Dose: 200 mg Documented By: MARQUIS Apixaban (Apixaban 5 Mg Tablet) 5 mg PO BID [facility] Last Admin: 02/25/25 08:43 Dose: 5 mg Documented By: MARQUIS Atorvastatin Calcium (Atorvastatin Calcium 20 Mg Tablet) 20 mg PO BEDTIME [facility] Last Admin: 02/24/25 21:00 Dose: 20 mg Documented By: ARPITA Calcium Carbonate (Calcium Carbonate 750 Mg Tab.Chew) 750 mg PO Q4H PRN PRN Reason: Heartburn Last Admin: 02/22/25 19:46 Dose: 750 mg Documented By: EUSEBIO Comments: requested for heartburn Carvedilol (Carvedilol 6.25 Mg Tablet) 6.25 mg PO BID [facility]; Protocol Last Admin: 02/25/25 08:48 Dose: Not Given Documented By: MARQUIS Non-Admin Reason: Physician Held Med Colchicine (Colchicine 0.6 Mg Tablet) 0.6 mg PO DAILY [facility] Last Admin: 02/25/25 08:43 Dose: 0.6 mg Documented By: MARQUIS Gabapentin (Gabapentin 100 Mg Capsule) 100 mg PO Q8H [facility] Last Admin: 02/25/25 08:43 Dose: 100 mg Documented By: MARQUIS Hydromorphone HCl (Hydromorphone Hcl 1 Mg/Ml Syringe) 1 mg IVPUSH Q4H PRN; Protocol PRN Reason: Pain, Severe (Pain Scale 7-10) Last Admin: 02/25/25 05:20 Dose: 1 mg Documented By: ARPITA Piperacillin Sod/Tazobactam (Sod 3.375 gm/ Sodium Chloride) 50 mls @ 100 mls/hr IV Q6H [facility] Last Infusion: 02/25/25 06:01 Dose: Infused Documented By: ARPITA Potassium Chloride (Potassium Chloride/H20) 10 meq in 100 mls @ 100 mls/hr IV Q1H [facility] Stop: 02/25/25 10:59 Last Admin: 02/25/25 08:38 Dose: 100 mls/hr Documented By: MARQUIS Magnesium Hydroxide (Milk Of Magnesia 30 Ml Oral.Susp) 30 ml PO DAILY PRN PRN Reason: Constipation Melatonin (Melatonin 3 Mg Tablet) 6 mg PO BEDTIME PRN PRN Reason: Insomnia Metoclopramide HCl (Metoclopramide Hcl 10 Mg/2 Ml Vial) 5 mg IVPUSH Q6H PRN PRN Reason: Nausea and Vomiting Last Admin: 02/20/25 05:56 Dose: 5 mg Documented By: JOSE Mirtazapine (Mirtazapine 15 Mg Tablet) 15 mg PO BEDTIME [facility] Last Admin: 02/24/25 21:00 Dose: 15 mg Documented By: ARPITA Multivitamins/Vitamin C (Multivitamin Tablet) 1 tab PO DAILY [facility] Last Admin: 02/25/25 08:43 Dose: 1 tab Documented By: MARQUIS Omeprazole (Omeprazole 20 Mg Capsule.Dr) 20 mg PO DAILY@0630 [facility] Last Admin: 02/25/25 05:21 Dose: 20 mg Documented By: ARPITA Ondansetron HCl (Ondansetron Hcl 4 Mg/2 Ml Vial) 4 mg IVPUSH Q6H PRN PRN Reason: Nausea and Vomiting Last Admin: 02/24/25 19:56 Dose: 4 mg Documented By: ARPITA Sodium Chloride (0.9 % Sodium Chloride Flush 3 Ml Syringe) 3 ml IVFLUSH QSHIFT [facility] Last Admin: 02/24/25 21:13 Dose: 3 ml Documented By: ARPITA Labs 02/22/25 08:17 02/25/25 05:08 Labs: Laboratory Results - last 24 hr 02/24/25 02/25/25 08:53 05:08 Hold Purple Top SEE NOTE Anion Gap 10 L 12 Estim Creat Clear Calc 95.9 97.8 Estimated GFR > 60 > 60 Random Glucose 76 73 Calcium 7.6 L 7.9 L Magnesium 1.5 L Lipase 239 H Assessment and Plan (1) Pancreatitis: Status: Acute Plan 65-year-old female with a past medical history of HTN, HLD, CAD, CHF, a flutter on Eliquis, IBS, history of pancreatitis, recent subtotal colectomy/hernia repair at [facility] [place] on 01/07/2025 with resultant ileostomy bag. Followed by patient had admission to the ICU at [facility] from 01/20-01/25 for pulmonary edema/pericardial effusion/anemia/new onset a flutter/intra-abdominal abscess/bacteremia-> patient was transferred to [facility] where she has abscess drained and treated conservatively, Finished a course of antibiotics and discharged home on 02/17/25. Presented back to the ER on 02/18/25 overnight with a chief complaint of abdominal pain. Admitted for following Abdominal pain:CT of abdomen and pelvis showed peripancreatic edema concerning for pancreatitis. Also noted biliary sludge and mild gallbladder wall thickening concerning for possible acute cholecystitis. Patient has slightly elevated liver enzymes, lipase level remain elevated. CT and pelvis also showed 1.8x4.4 cm abdominal wall gas/fluid collection along the midline of the anterior abdominal wall-represents phlegmon/abscess. Noted multiple peripherally enhancing collections along the lateral margin seen of the liver, right lower abdominal quadrant-represent interval improvement in the abscesses Also noted findings concerning for gastroenteritis, presently without symptoms of gastroenteritis Will continue Dilaudid p.r.n. for pain control advance diet as mela Continue empiric Zosyn for now HIDA scan no definitive cholecystitis Surgery following, HX subtotal colectomy/hernia repair: Surgical site healing. HX ileostomy: Ileostomy care per RN Cardiomyopathy: compensated A flutter: continue amiodarone. Continue home Eliquis Hypertension: Blood pressure on the low normal side. Will hold home antihypertensives for now Hypomagnesemia and hypokalemia IV mag,IV K and continue to monitor DVT prophylaxis: Patient on Eliquis Code status: Full code out of bed and ambulate Quality Stroke Does the patient have a stroke diagnosis?: No VTE Prior VTE?: No VTE Risk Level:: Medical - moderate - high VTE Device Contraindication: Treatment Not Indicated VTE Drug Contraindication: N/A - Med Ordered
--- NOTE | 2025-02-25 10:17 | MHC.CM.PN ---
Per MD rounds patient states that she is not ready to discharge r/t pain management. DP Home with resumption of [facility]. Patient has arranged for transportation home.
[2025-02-25] MEDS: ondansetron HCL 4 MG/2 ML VIAL IVPUSH (11:27)
--- NOTE | 2025-02-25 12:34 | PC.NURSE ---
11:20 am Pt endorsing 8/10 pain, requesting dilaudid. BP 103/60, asymptomatic. MD Guallpa notified, told to proceed with dilaudid.
[2025-02-25] MEDS: 0.9 % Sodium Chloride Flush 3 ML SYRINGE IVFLUSH (16:54)
[2025-02-25] MEDS: Metoclopramide HCl 10 MG/2 ML VIAL 5 MG IVPUSH (17:08)
[2025-02-25] MEDS: Atorvastatin Calcium 20 MG TABLET PO (20:16)
[2025-02-25] MEDS: Mirtazapine 15 MG TABLET PO (20:17)
[2025-02-25] MEDS: carvediloL 6.25 MG TABLET PO (20:17)
[2025-02-25] MEDS: carisoprodoL 350 MG TABLET PO (21:26)
[2025-02-26] VITALS (7 sets, daily range): BP systolic 98–124; BP diastolic 54–66; PULSE 85–94; RESP 16; TEMP 36.3–36.8; O2SAT 93–96
[2025-02-26] MEDS: Gabapentin 100 MG CAPSULE PO ×3 (00:35→14:55)
[2025-02-26] MEDS: Piperacillin Sodium/Tazobactam 3.375 GM in 0.9 % Sodium Chloride 50 ML IV ×4 (00:36→16:54)
[2025-02-26] MEDS: 0.9 % Sodium Chloride Flush 3 ML SYRINGE IVFLUSH ×4 (00:37→21:07)
[2025-02-26] MEDS: HYDROmorphone HCl 1 MG/ML SYRINGE IVPUSH ×4 (04:31→21:06)
[2025-02-26] MEDS: Omeprazole 20 MG CAPSULE.DR PO (06:08)
--- NOTE | 2025-02-26 06:52 | P.PNGS_ITS ---
Subjective Subjective Date of Service: 02/26/25 <Kia Marcus - Last Filed: 02/26/25 07:15> 02/26/25 <Kannan Chappell PA-C - Last Filed: 02/26/25 08:30> 02/26/25 <Gideon Ruvalcaba MD - Last Filed: 02/26/25 07:54> Interval history: 65 y/o F with acute pancreatitis and a PMH of colostomy with ostomy and recently diagnosed pulmonary edema and atrial flutter. No overnight events. Pain rated 4-5/10 on IV dilaudid. Requested IV dilaudid 2x last night. No nausea this AM, improved from last night managed with IV zofran. No vomiting, fever, or chills. Ambulating with walker. Reports having to drain ostomy more than usual, 3x during the day and 1x overnight. Tolerating bland regular diet. Ins: IV potassium, IV dilaudid, IV zofran. <Kia Angola - Last Filed: 02/26/25 07:15> Physical Exam 2 Vital Signs: Vital Signs: Last Vital Signs Temp 97.4 F 02/26/25 03:24 Pulse 85 02/26/25 03:24 Resp 16 02/26/25 03:24 BP 106/61 02/26/25 03:24 Pulse Ox 93 02/26/25 03:24 O2 Del Method Room Air 02/26/25 03:24 BMI result Body Mass Index 27.3 <Kia Marcus - Last Filed: 02/26/25 07:15> Const: General: no acute distress <Kia Angola - Last Filed: 02/26/25 07:15> HEENT: Head: Yes normal to inspection and Yes normocephalic <Kia Angola - Last Filed: 02/26/25 07:15> Eyes: General: appearance normal, both eyes and all related structures < Kia Marcus - Last Filed: 02/26/25 07:15> Chest: Chest palpation & inspection: normal inspection of the chest < Kia Angola - Last Filed: 02/26/25 07:15> Resp: Other: lungs clear to auscultation, no crackles or wheezes <Kia Marcus - Last Filed: 02/26/25 07:15> Effort & Inspection: normal respiratory effort <Kia Marcus - Last Filed: 02/26/25 07:15> Cardio: Other: no murmurs, rubs, gallops <Kia Angola - Last Filed: 02/26/25 07:15> Peripheral pulses: dorsalis pedis present <Kia Marcus - Last Filed: 02/26/25 07:15> GI: Other: Soft, tender to palpation, non-distended, ostomy in place with green, liquid contents <Kia Marcus - Last Filed: 02/26/25 07:15> Skin: Other: Dry skin noted on right ankle <Kia Angola - Last Filed: 02/26/25 07:15> Extrem: Other: Non-pitting edema on right ankle, 2 + dorsalis pedis pulses <Kia Marcus - Last Filed: 02/26/25 07:15> Psych: Mental Status: mental status grossly normal <Kia Angola - Last Filed: 02/26/25 07:15> Objective Data Active Medications Acetaminophen (Acetaminophen 325 Mg Tablet) 650 mg PO Q6H PRN PRN Reason: Pain, Mild 1-3,fever,headache Amiodarone HCl (Amiodarone Hcl 200 Mg Tablet) 200 mg PO DAILY [facility] Last Admin: 02/25/25 08:43 Dose: 200 mg Documented By: MARQUIS Apixaban (Apixaban 5 Mg Tablet) 5 mg PO BID [facility] Last Admin: 02/25/25 20:16 Dose: 5 mg Documented By: CHERYL Atorvastatin Calcium (Atorvastatin Calcium 20 Mg Tablet) 20 mg PO BEDTIME [facility] Last Admin: 02/25/25 20:16 Dose: 20 mg Documented By: CHERYL Calcium Carbonate (Calcium Carbonate 750 Mg Tab.Chew) 750 mg PO Q4H PRN PRN Reason: Heartburn Last Admin: 02/22/25 19:46 Dose: 750 mg Documented By: EUSEBIO Comments: requested for heartburn Carisoprodol (Carisoprodol 350 Mg Tablet) 350 mg PO BEDTIME [facility] Last Admin: 02/25/25 21:26 Dose: 350 mg Documented By: CHERYL Carvedilol (Carvedilol 6.25 Mg Tablet) 6.25 mg PO BID [facility]; Protocol Last Admin: 02/25/25 20:17 Dose: 6.25 mg Documented By: CHERYL Colchicine (Colchicine 0.6 Mg Tablet) 0.6 mg PO DAILY [facility] Last Admin: 02/25/25 08:43 Dose: 0.6 mg Documented By: MARQUIS Gabapentin (Gabapentin 100 Mg Capsule) 100 mg PO Q8H [facility] Last Admin: 02/26/25 00:35 Dose: 100 mg Documented By: CHERYL Hydromorphone HCl (Hydromorphone Hcl 1 Mg/Ml Syringe) 1 mg IVPUSH Q4H PRN; Protocol PRN Reason: Pain, Severe (Pain Scale 7-10) Last Admin: 02/26/25 04:31 Dose: 1 mg Documented By: CHERYL Piperacillin Sod/Tazobactam (Sod 3.375 gm/ Sodium Chloride) 50 mls @ 100 mls/hr IV Q6H [facility] Last Admin: 02/26/25 06:09 Dose: 100 mls/hr Documented By: CHERYL Magnesium Hydroxide (Milk Of Magnesia 30 Ml Oral.Susp) 30 ml PO DAILY PRN PRN Reason: Constipation Melatonin (Melatonin 3 Mg Tablet) 6 mg PO BEDTIME PRN PRN Reason: Insomnia Metoclopramide HCl (Metoclopramide Hcl 10 Mg/2 Ml Vial) 5 mg IVPUSH Q6H PRN PRN Reason: Nausea and Vomiting Last Admin: 02/25/25 17:08 Dose: 5 mg Documented By: MARQUIS Mirtazapine (Mirtazapine 15 Mg Tablet) 15 mg PO BEDTIME [facility] Last Admin: 02/25/25 20:17 Dose: 15 mg Documented By: CHERYL Multivitamins/Vitamin C (Multivitamin Tablet) 1 tab PO DAILY [facility] Last Admin: 02/25/25 08:43 Dose: 1 tab Documented By: MARQUIS Omeprazole (Omeprazole 20 Mg Capsule.) 20 mg PO DAILY@0630 [facility] Last Admin: 02/26/25 06:08 Dose: 20 mg Documented By: CHERYL Ondansetron HCl (Ondansetron Hcl 4 Mg/2 Ml Vial) 4 mg IVPUSH Q6H PRN PRN Reason: Nausea and Vomiting Last Admin: 02/25/25 11:27 Dose: 4 mg Documented By: MARQUIS Sodium Chloride (0.9 % Sodium Chloride Flush 3 Ml Syringe) [facility] Last Admin: 02/26/25 00:37 Dose: 3 ml Documented By: CHERYL <Kia Timmonsus - Last Filed: 02/26/25 07:15> Labs CBC & Chem 7: 02/22/25 08:17 02/26/25 06:17 <Kia Angola - Last Filed: 02/26/25 07:15> Labs: Laboratory Results - last 24 hr 02/25/25 02/26/25 05:08 06:17 Hold Purple Top SEE NOTE Magnesium 1.5 L <Kia Timmonsus - Last Filed: 02/26/25 07:15> Procedures Date of Service Date of Service: 02/26/25 <Kia Velazquez - Last Filed: 02/26/25 07:15> 02/26/25 <Kannan Chappell PA-C - Last Filed: 02/26/25 08:30> 02/26/25 <Gideon Ruvalcaba MD - Last Filed: 02/26/25 07:54> Progress Note: A&P Assessment and plan (1) Pancreatitis: Status: Acute <Kia Velazquez - Last Filed: 02/26/25 07:15> Assessment and Plan: Patient says her pain level has been slowly improving States her oral intake was ?okay? yesterday although not as much as she would like No vomiting Says she has been able to ambulate down the hallway Abdomen is soft Ileostomy functioning well Continue to increase oral intake I explained to her that once her oral intake appears adequate she should be able to be discharged home Seen and examined independently <Gideon Ruvalcaba MD - Last Filed: 02/26/25 07:54> Assessment and Plan: 65 y/o F with acute pancreatitis and a PMH of colostomy with ostomy and recently diagnosed pulmonary edema and atrial flutter, stable. Pain mildly improved from a 5 to 4/10, treated with IV dilaudid. No nausea, vomiting, chills, or fever this AM. Nausea noted last PM, treated with IV zofran. Non- pitting edema noted on right ankle with equal dorsalis pedis pulses bilaterally. Labs pending. Continue pain management with IV dilaudid PRN. Recheck potassium to assess hypokalemia. Continue encouraging ambulation. Elevate right ankle and regularly check dorsalis pedis pulses to monitor right ankle swelling. Continue with regular diet. <Kia Timmonsus - Last Filed: 02/26/25 07:15> 65 y/o F with acute pancreatitis and a PMH of colostomy with ostomy and recently diagnosed pulmonary edema and atrial flutter, stable. Pain mildly improved from a 5 to 4/10, treated with IV dilaudid. No nausea, vomiting, chills, or fever this AM. Nausea noted last PM, treated with IV zofran. Non- pitting edema noted on right ankle with equal dorsalis pedis pulses bilaterally. Labs pending. Continue pain management with IV dilaudid PRN. Recheck potassium to assess hypokalemia. Continue encouraging ambulation. Elevate right ankle and regularly check dorsalis pedis pulses to monitor right ankle swelling. Continue with regular diet. Patient seen and evaluated independently, I agree with the above assesment and plan. Patient expressed interest in D/c later this week. <Kannan Chappell PA-C - Last Filed: 02/26/25 08:30> Time Spent With Patient Time: Total time managing care of this patient today ____ minutes. <Kia Velazquez - Last Filed: 02/26/25 07:15> Quality Stroke Does the patient have a stroke diagnosis?: No <Kia Timmonsus - Last Filed: 02/26/25 07:15> VTE Prior VTE?: No <Kia Timmonsus - Last Filed: 02/26/25 07:15> VTE Risk Level:: Medical - moderate - high <Kia Timmonsus - Last Filed: 02/26/25 07:15> VTE Device Contraindication: Treatment Not Indicated <Kia Velazquez - Last Filed: 02/26/25 07:15> VTE Drug Contraindication: N/A - Med Ordered <Kia Timmonsus - Last Filed: 02/26/25 07:15>
[2025-02-26 07:14] LABS: Anion Gap 13 (12-20); Blood Urea Nitrogen 4 mg/dL (9-16); Carbon Dioxide 26 mmol/L (22-29); Chloride 100 mmol/L (96-108); Creatinine Clr Calc Pharmacy 87.5; Estimated Glomerular Filt Rate > 60; Glucose Random 79 mg/dL (60-115); Potassium 3.5 mmol/L (3.3-5.1); Sodium 135 mmol/L (135-145)
[2025-02-26 07:20] LABS: Magnesium 1.4 mg/dL (1.6-2.6)
[2025-02-26] MEDS: Apixaban 5 MG TABLET PO ×2 (08:00→21:04)
[2025-02-26] MEDS: Amiodarone HCL 200 MG TABLET PO (08:00)
[2025-02-26] MEDS: Multivitamin TABLET 1 TAB PO (08:01)
[2025-02-26] MEDS: Colchicine 0.6 MG TABLET PO (08:01)
[2025-02-26] MEDS: carvediloL 6.25 MG TABLET PO ×2 (08:01→21:04)
--- NOTE | 2025-02-26 08:12 | P.PNIM_ITS ---
Subjective Subjective Date of Service: 02/26/25 Interval History: She is still reporting pain and lipase level remains high, potassium level low, she will only take IV Potassium Physical Exam 2 Vital Signs: Vital Signs: Last Vital Signs Temp 98.0 F 02/26/25 07:40 Pulse 87 02/26/25 07:40 Resp 16 02/26/25 07:40 BP 124/65 02/26/25 07:40 Pulse Ox 96 02/26/25 07:40 O2 Del Method Room Air 02/26/25 07:40 BMI result Body Mass Index 27.3 Objective Data Active Medications Acetaminophen (Acetaminophen 325 Mg Tablet) 650 mg PO Q6H PRN PRN Reason: Pain, Mild 1-3,fever,headache Amiodarone HCl (Amiodarone Hcl 200 Mg Tablet) 200 mg PO DAILY [facility] Last Admin: 02/25/25 08:43 Dose: 200 mg Documented By: MARQUIS Apixaban (Apixaban 5 Mg Tablet) 5 mg PO BID [facility] Last Admin: 02/25/25 20:16 Dose: 5 mg Documented By: CHERYL Atorvastatin Calcium (Atorvastatin Calcium 20 Mg Tablet) 20 mg PO BEDTIME [facility] Last Admin: 02/25/25 20:16 Dose: 20 mg Documented By: CHERYL Calcium Carbonate (Calcium Carbonate 750 Mg Tab.Chew) 750 mg PO Q4H PRN PRN Reason: Heartburn Last Admin: 02/22/25 19:46 Dose: 750 mg Documented By: EUSEBIO Comments: requested for heartburn Carisoprodol (Carisoprodol 350 Mg Tablet) 350 mg PO BEDTIME [facility] Last Admin: 02/25/25 21:26 Dose: 350 mg Documented By: CHERYL Carvedilol (Carvedilol 6.25 Mg Tablet) 6.25 mg PO BID [facility]; Protocol Last Admin: 02/25/25 20:17 Dose: 6.25 mg Documented By: CHERYL Colchicine (Colchicine 0.6 Mg Tablet) 0.6 mg PO DAILY [facility] Last Admin: 02/25/25 08:43 Dose: 0.6 mg Documented By: MARQUIS Gabapentin (Gabapentin 100 Mg Capsule) 100 mg PO Q8H [facility] Last Admin: 02/26/25 00:35 Dose: 100 mg Documented By: CHERYL Hydromorphone HCl (Hydromorphone Hcl 1 Mg/Ml Syringe) 1 mg IVPUSH Q4H PRN; Protocol PRN Reason: Pain, Severe (Pain Scale 7-10) Last Admin: 02/26/25 04:31 Dose: 1 mg Documented By: CHERYL Piperacillin Sod/Tazobactam (Sod 3.375 gm/ Sodium Chloride) 50 mls @ 100 mls/hr IV Q6H [facility] Last Admin: 02/26/25 06:09 Dose: 100 mls/hr Documented By: CHERYL Magnesium Sulfate (Magnesium Sulfate/H2o) 2 gm in 50 mls @ 25 mls/hr IV ONCE ONE Stop: 02/26/25 10:10 Magnesium Hydroxide (Milk Of Magnesia 30 Ml Oral.Susp) 30 ml PO DAILY PRN PRN Reason: Constipation Melatonin (Melatonin 3 Mg Tablet) 6 mg PO BEDTIME PRN PRN Reason: Insomnia Metoclopramide HCl (Metoclopramide Hcl 10 Mg/2 Ml Vial) 5 mg IVPUSH Q6H PRN PRN Reason: Nausea and Vomiting Last Admin: 02/25/25 17:08 Dose: 5 mg Documented By: MARQUIS Mirtazapine (Mirtazapine 15 Mg Tablet) 15 mg PO BEDTIME [facility] Last Admin: 02/25/25 20:17 Dose: 15 mg Documented By: CHERYL Multivitamins/Vitamin C (Multivitamin Tablet) 1 tab PO DAILY [facility] Last Admin: 02/25/25 08:43 Dose: 1 tab Documented By: MARQUIS Omeprazole (Omeprazole 20 Mg Capsule.) 20 mg PO DAILY@0630 [facility] Last Admin: 02/26/25 06:08 Dose: 20 mg Documented By: CHERYL Ondansetron HCl (Ondansetron Hcl 4 Mg/2 Ml Vial) 4 mg IVPUSH Q6H PRN PRN Reason: Nausea and Vomiting Last Admin: 02/25/25 11:27 Dose: 4 mg Documented By: MARQUIS Sodium Chloride (0.9 % Sodium Chloride Flush 3 Ml Syringe) [facility] Last Admin: 02/26/25 00:37 Dose: 3 ml Documented By: CHERYL Labs 02/22/25 08:17 02/26/25 06:17 Labs: Laboratory Results - last 24 hr 02/26/25 06:17 Hold Purple Top SEE NOTE Anion Gap 13 Estim Creat Clear Calc 87.5 Estimated GFR > 60 Random Glucose 79 Calcium 8.0 L Magnesium 1.4 L* Assessment and Plan (1) Pancreatitis: Status: Acute Plan 65-year-old female with a past medical history of HTN, HLD, CAD, CHF, a flutter on Eliquis, IBS, history of pancreatitis, recent subtotal colectomy/hernia repair at [place] on 01/07/2025 with resultant ileostomy bag. Followed by patient had admission to the ICU at [facility] from 01/20-01/25 for pulmonary edema/pericardial effusion/anemia/new onset a flutter/intra-abdominal abscess/bacteremia-> patient was transferred to [facility] where she has abscess drained and treated conservatively, Finished a course of antibiotics and discharged home on 02/17/25. Presented back to the ER on 02/18/25 overnight with a chief complaint of abdominal pain. Admitted for following Abdominal pain:CT of abdomen and pelvis showed peripancreatic edema concerning for pancreatitis. Also noted biliary sludge and mild gallbladder wall thickening concerning for possible acute cholecystitis. Patient has slightly elevated liver enzymes, lipase level remain elevated. CT and pelvis also showed 1.8x4.4 cm abdominal wall gas/fluid collection along the midline of the anterior abdominal wall-represents phlegmon/abscess. Noted multiple peripherally enhancing collections along the lateral margin seen of the liver, right lower abdominal quadrant-represent interval improvement in the abscesses Also noted findings concerning for gastroenteritis, presently without symptoms of gastroenteritis Will continue Dilaudid p.r.n. for pain control advance diet as mela Continue empiric Zosyn for now HIDA scan no definitive cholecystitis Surgery following, HX subtotal colectomy/hernia repair: Surgical site healing. HypOmagnesemia IV replacement HX ileostomy: Ileostomy care per RN Cardiomyopathy: compensated A flutter: continue amiodarone. Continue home Eliquis Hypertension: Blood pressure on the low normal side. Will hold home antihypertensives for now Hypomagnesemia and hypokalemia IV mag,IV K and continue to monitor DVT prophylaxis: Patient on Eliquis Code status: Full code out of bed and ambulate Quality Stroke Does the patient have a stroke diagnosis?: No VTE Prior VTE?: No VTE Risk Level:: Medical - moderate - high VTE Device Contraindication: Treatment Not Indicated VTE Drug Contraindication: N/A - Med Ordered
[2025-02-26] MEDS: Magnesium Sulfate/H2O 2 GM/50 ML PIGGYBACK IV (08:45)
[2025-02-26 08:46] LABS: Lipase 206 U/L (8-78)
--- NOTE | 2025-02-26 12:56 | MHC.CM.PN ---
Addendum entered by Mary Rivero RN 02/26/25 15:30: CM met with patient to discuss dc plan. Anticipate DC home tomorrow. Per PT recommendation, will resume services w/ [facility]. Patient requesting BLS transport and says if there is a bill she will pay it. IMM delivered. Original Note: Patient not medically cleared for dc. CM will continue to follow.
--- NOTE | 2025-02-26 13:13 | PC.NURSE ---
P: Alterationin Comfort I: See nursing documentation and MD orders E: Patient reported pain per pain scale. PRN dilauded given with positive affect. Patient ambulated in hallway with positive affect
[2025-02-26] MEDS: Mirtazapine 15 MG TABLET PO (21:05)
[2025-02-26] MEDS: carisoprodoL 350 MG TABLET PO (21:05)
[2025-02-26] MEDS: Atorvastatin Calcium 20 MG TABLET PO (21:06)
[2025-02-27] MEDS: Gabapentin 100 MG CAPSULE PO ×2 (00:52→08:57)
[2025-02-27] MEDS: Piperacillin Sodium/Tazobactam 3.375 GM in 0.9 % Sodium Chloride 50 ML IV ×2 (00:52→05:27)
[2025-02-27 03:39] VITALS: BP 102/56; PULSE 83; RESP 16; TEMP 36.4; O2SAT 95
[2025-02-27] MEDS: Omeprazole 20 MG CAPSULE.DR PO (05:27)
[2025-02-27 06:34] LABS: Blood Urea Nitrogen 6 mg/dL (9-16); Estimated Glomerular Filt Rate > 60; Glucose Random 88 mg/dL (60-115); Magnesium 1.7 mg/dL (1.6-2.6); Potassium 3.3 mmol/L (3.3-5.1)
--- NOTE | 2025-02-27 06:51 | PM.PNGS ---
Subjective Subjective Date of Service: 02/27/25 <Kia Marcus - Last Filed: 02/27/25 07:04> 02/27/25 <Gideon Ruvalcaba MD - Last Filed: 02/27/25 16:15> 02/27/25 <Kannan Chappell PA-C - Last Filed: 02/27/25 11:54> Interval history: Kia Phelps is a 65 y/o F with acute pancreatitis and a PMH of colostomy with ostomy. No acute overnight events. Patient reports okay pain scaled 7/10 managed with 1 dose IV dilaudid overnight. No nausea, vomiting, fever, chills. Ambulating with walker. Ostomy drained 1x at night. Tolerating bland regular diet better. Ins: IV dilaudid, IV magnesium sulfate. <Kia Arthur - Last Filed: 02/27/25 07:04> Physical Exam Vital Signs: Vital Signs: Last Vital Signs Temp 97.5 F 02/27/25 03:39 Pulse 83 02/27/25 03:39 Resp 16 02/27/25 03:39 BP 102/56 L 02/27/25 03:39 Pulse Ox 95 02/27/25 03:39 O2 Del Method Room Air 02/27/25 03:39 BMI result Body Mass Index 27.3 <Kia Marcus - Last Filed: 02/27/25 07:04> Const: General: no acute distress <Kia Arthur - Last Filed: 02/27/25 07:04> Orientation/consciousness: patient oriented x3 <Kia Arthur - Last Filed: 02/27/25 07:04> HEENT: Head: Yes normal to inspection <Kia Marcus - Last Filed: 02/27/25 07:04> Chest: Chest palpation & inspection: normal inspection of the chest <Kia Arthur - Last Filed: 02/27/25 07:04> Resp: Effort & Inspection: normal respiratory effort <Kia Marcus - Last Filed: 02/27/25 07:04> GI: Other: Soft, tender to palpation, non-distended, ostomy drained green contents <Kia Arthur - Last Filed: 02/27/25 07:04> Neuro: General: patient oriented x3 <Kia Arthur - Last Filed: 02/27/25 07:04> Extrem: Other: Mild non-pitting edema of the right ankle appreciated, improved from yesterday <Kia Arthur - Last Filed: 02/27/25 07:04> Psych: Mental Status: mental status grossly normal <Kia Marcus - Last Filed: 02/27/25 07:04> Objective Data Active Medications Acetaminophen (Acetaminophen 325 Mg Tablet) 650 mg PO Q6H PRN PRN Reason: Pain, Mild 1-3,fever,headache Amiodarone HCl (Amiodarone Hcl 200 Mg Tablet) 200 mg PO DAILY [facility] Last Admin: 02/26/25 08:00 Dose: 200 mg Documented By: LIAT Apixaban (Apixaban 5 Mg Tablet) 5 mg PO BID [facility] Last Admin: 02/26/25 21:04 Dose: 5 mg Documented By: SRIDHAR Atorvastatin Calcium (Atorvastatin Calcium 20 Mg Tablet) 20 mg PO BEDTIME [facility] Last Admin: 02/26/25 21:06 Dose: 20 mg Documented By: SRIDHAR Calcium Carbonate (Calcium Carbonate 750 Mg Tab.Chew) 750 mg PO Q4H PRN PRN Reason: Heartburn Last Admin: 02/22/25 19:46 Dose: 750 mg Documented By: EUSEBIO Comments: requested for heartburn Carisoprodol (Carisoprodol 350 Mg Tablet) 350 mg PO BEDTIME [facility] Last Admin: 02/26/25 21:05 Dose: 350 mg Documented By: SRIDHAR Carvedilol (Carvedilol 6.25 Mg Tablet) 6.25 mg PO BID [facility]; Protocol Last Admin: 02/26/25 21:04 Dose: 6.25 mg Documented By: SRIDHAR Colchicine (Colchicine 0.6 Mg Tablet) 0.6 mg PO DAILY [facility] Last Admin: 02/26/25 08:01 Dose: 0.6 mg Documented By: LIAT Gabapentin (Gabapentin 100 Mg Capsule) 100 mg PO Q8H [facility] Last Admin: 02/27/25 00:52 Dose: 100 mg Documented By: SRIDHAR Hydromorphone HCl (Hydromorphone Hcl 1 Mg/Ml Syringe) 1 mg IVPUSH Q4H PRN; Protocol PRN Reason: Pain, Severe (Pain Scale 7-10) Last Admin: 02/26/25 21:06 Dose: 1 mg Documented By: SRIDHAR Piperacillin Sod/Tazobactam (Sod 3.375 gm/ Sodium Chloride) 50 mls @ 100 mls/hr IV Q6H [facility] Last Infusion: 02/27/25 06:00 Dose: Infused Documented By: SRIDHAR Magnesium Hydroxide (Milk Of Magnesia 30 Ml Oral.Susp) 30 ml PO DAILY PRN PRN Reason: Constipation Melatonin (Melatonin 3 Mg Tablet) 6 mg PO BEDTIME PRN PRN Reason: Insomnia Metoclopramide HCl (Metoclopramide Hcl 10 Mg/2 Ml Vial) 5 mg IVPUSH Q6H PRN PRN Reason: Nausea and Vomiting Last Admin: 02/25/25 17:08 Dose: 5 mg Documented By: MARQUIS Mirtazapine (Mirtazapine 15 Mg Tablet) 15 mg PO BEDTIME [facility] Last Admin: 02/26/25 21:05 Dose: 15 mg Documented By: SRIDHAR Multivitamins/Vitamin C (Multivitamin Tablet) 1 tab PO DAILY [facility] Last Admin: 02/26/25 08:01 Dose: 1 tab Documented By: LIAT Omeprazole (Omeprazole 20 Mg Capsule.Dr) 20 mg PO DAILY@0630 [facility] Last Admin: 02/27/25 05:27 Dose: 20 mg Documented By: SRIDHAR Ondansetron HCl (Ondansetron Hcl 4 Mg/2 Ml Vial) 4 mg IVPUSH Q6H PRN PRN Reason: Nausea and Vomiting Last Admin: 02/25/25 11:27 Dose: 4 mg Documented By: MARQUIS Sodium Chloride (0.9 % Sodium Chloride Flush 3 Ml Syringe) 3 ml IVFLUSH QSHIFT [facility] Last Admin: 02/26/25 21:07 Dose: 3 ml Documented By: SRIDHAR <Kia Velazquez - Last Filed: 02/27/25 07:04> Labs CBC & Chem 7: 02/27/25 05:40 02/27/25 08:24 <Kia Velazquez - Last Filed: 02/27/25 07:04> Labs: Laboratory Results - last 24 hr 02/26/25 02/27/25 06:17 05:40 Hold Purple Top SEE NOTE Anion Gap 13 Estim Creat Clear Calc 87.5 Estimated GFR > 60 Random Glucose 79 Calcium 8.0 L Magnesium 1.4 L* Lipase 206 H <Kia Velazquez - Last Filed: 02/27/25 07:04> Procedures Date of Service Date of Service: 02/27/25 <Kia Velazquez - Last Filed: 02/27/25 07:04> 02/27/25 <Gideon Ruvalcaba MD - Last Filed: 02/27/25 16:15> 02/27/25 <Kannan Chappell PA-C - Last Filed: 02/27/25 11:54> Progress Note: A&P Assessment and plan (1) Pancreatitis: Status: Acute <Kia Lyonstus - Last Filed: 02/27/25 07:04> Assessment and Plan: Says her oral intake was better yesterday Feels better overall She says she is ready to be discharged Soft Stoma functioning Labs pending Okay to [place] home if no medical contraindications Encouraged oral intake <Gideon Ruvalcaba MD - Last Filed: 02/27/25 16:15> Assessment and Plan: 65 y/o F with acute pancreatitis and PMH of colostomy with ostomy bag, stable. Pain rated okay at 7/10 on IV dilaudid. No n/v. Abdomen soft, tender, non-distended. Mild, improved, non-pitting edema of the right ankle. Ostomy functioning, draining green contents, drained 1x overnight. Labs pending. Continue IV dilaudid PRN for pain management. Recheck magnesium to monitor hypomagnesemia and possibly give IV magnesium if still low. Continue monitoring potassium. Continue encouraging ambulation. Elevate right ankle to manage swelling. <Kia Lyonstus - Last Filed: 02/27/25 07:04> 65 y/o F with acute pancreatitis and PMH of colostomy with ostomy bag, stable. Pain rated okay at 7/10 on IV dilaudid. No n/v. Abdomen soft, tender, non-distended. Mild, improved, non-pitting edema of the right ankle. Ostomy functioning, draining green contents, drained 1x overnight. Labs pending. Continue IV dilaudid PRN for pain management. Recheck magnesium to monitor hypomagnesemia and possibly give IV magnesium if still low. Continue monitoring potassium. Continue encouraging ambulation. Elevate right ankle to manage swelling. Patient seen and evaluated independently, i agree with the above assessment and plan. <Kannan Chappell PA-C - Last Filed: 02/27/25 11:54> Time Spent With Patient Time: Total time managing care of this patient today ____ minutes. <Kia Velazquez - Last Filed: 02/27/25 07:04> Quality Stroke Does the patient have a stroke diagnosis?: No <Kia Velazquez - Last Filed: 02/27/25 07:04> VTE Prior VTE?: No <Kia Velazquez - Last Filed: 02/27/25 07:04> VTE Risk Level:: Medical - moderate - high <Kia Velazquez - Last Filed: 02/27/25 07:04> VTE Device Contraindication: Treatment Not Indicated <Kia Velazquez - Last Filed: 02/27/25 07:04> VTE Drug Contraindication: N/A - Med Ordered <Kia Velazquez - Last Filed: 02/27/25 07:04>
[2025-02-27 07:31] VITALS: BP 110/65; PULSE 79; RESP 18; TEMP 36.7; O2SAT 96
--- NOTE | 2025-02-27 08:40 | HO.PM.IMPN ---
Subjective Subjective Date of Service: 02/27/25 Interval History: She is still reporting pain and lipase level remains high, potassium level low, she will only take IV Potassium Physical Exam Vital Signs: Vital Signs: Last Vital Signs Temp 98.1 F 02/27/25 07:31 Pulse 79 02/27/25 07:31 Resp 18 02/27/25 07:31 BP 110/65 02/27/25 07:31 Pulse Ox 96 02/27/25 07:31 O2 Del Method Room Air 02/27/25 07:31 BMI result Body Mass Index 27.3 Objective Data Active Medications Acetaminophen (Acetaminophen 325 Mg Tablet) 650 mg PO Q6H PRN PRN Reason: Pain, Mild 1-3,fever,headache Amiodarone HCl (Amiodarone Hcl 200 Mg Tablet) 200 mg PO DAILY [facility] Last Admin: 02/26/25 08:00 Dose: 200 mg Documented By: LIAT Apixaban (Apixaban 5 Mg Tablet) 5 mg PO BID [facility] Last Admin: 02/26/25 21:04 Dose: 5 mg Documented By: SRIDHAR Atorvastatin Calcium (Atorvastatin Calcium 20 Mg Tablet) 20 mg PO BEDTIME [facility] Last Admin: 02/26/25 21:06 Dose: 20 mg Documented By: SRIDHAR Calcium Carbonate (Calcium Carbonate 750 Mg Tab.Chew) 750 mg PO Q4H PRN PRN Reason: Heartburn Last Admin: 02/22/25 19:46 Dose: 750 mg Documented By: EUSEBIO Comments: requested for heartburn Carisoprodol (Carisoprodol 350 Mg Tablet) 350 mg PO BEDTIME [facility] Last Admin: 02/26/25 21:05 Dose: 350 mg Documented By: SRIDHAR Carvedilol (Carvedilol 6.25 Mg Tablet) 6.25 mg PO BID [facility]; Protocol Last Admin: 02/26/25 21:04 Dose: 6.25 mg Documented By: SRIDHAR Colchicine (Colchicine 0.6 Mg Tablet) 0.6 mg PO DAILY [facility] Last Admin: 02/26/25 08:01 Dose: 0.6 mg Documented By: LIAT Gabapentin (Gabapentin 100 Mg Capsule) 100 mg PO Q8H [facility] Last Admin: 02/27/25 00:52 Dose: 100 mg Documented By: SRIDHAR Hydromorphone HCl (Hydromorphone Hcl 1 Mg/Ml Syringe) 1 mg IVPUSH Q4H PRN; Protocol PRN Reason: Pain, Severe (Pain Scale 7-10) Last Admin: 02/26/25 21:06 Dose: 1 mg Documented By: SRIDHAR Piperacillin Sod/Tazobactam (Sod 3.375 gm/ Sodium Chloride) 50 mls @ 100 mls/hr IV Q6H [facility] Last Infusion: 02/27/25 06:00 Dose: Infused Documented By: SRIDHAR Magnesium Hydroxide (Milk Of Magnesia 30 Ml Oral.Susp) 30 ml PO DAILY PRN PRN Reason: Constipation Melatonin (Melatonin 3 Mg Tablet) 6 mg PO BEDTIME PRN PRN Reason: Insomnia Metoclopramide HCl (Metoclopramide Hcl 10 Mg/2 Ml Vial) 5 mg IVPUSH Q6H PRN PRN Reason: Nausea and Vomiting Last Admin: 02/25/25 17:08 Dose: 5 mg Documented By: MARQUIS Mirtazapine (Mirtazapine 15 Mg Tablet) 15 mg PO BEDTIME [facility] Last Admin: 02/26/25 21:05 Dose: 15 mg Documented By: SRIDHAR Multivitamins/Vitamin C (Multivitamin Tablet) 1 tab PO DAILY [facility] Last Admin: 02/26/25 08:01 Dose: 1 tab Documented By: LIAT Omeprazole (Omeprazole 20 Mg Capsule.Dr) 20 mg PO DAILY@0630 [facility] Last Admin: 02/27/25 05:27 Dose: 20 mg Documented By: SRIDHAR Ondansetron HCl (Ondansetron Hcl 4 Mg/2 Ml Vial) 4 mg IVPUSH Q6H PRN PRN Reason: Nausea and Vomiting Last Admin: 02/25/25 11:27 Dose: 4 mg Documented By: MARQUIS Sodium Chloride (0.9 % Sodium Chloride Flush 3 Ml Syringe) 3 ml IVFLUSH QSHIFT [facility] Last Admin: 02/26/25 21:07 Dose: 3 ml Documented By: SRIDHAR Labs 02/22/25 08:17 02/26/25 06:17 Labs: Laboratory Results - last 24 hr 02/26/25 02/27/25 06:17 05:40 Hold Purple Top SEE NOTE Lipase 206 H Assessment and Plan (1) Pancreatitis: Status: Acute Plan 65-year-old female with a past medical history of HTN, HLD, CAD, CHF, a flutter on Eliquis, IBS, history of pancreatitis, recent subtotal colectomy/hernia repair [place] [facility] [place] on [place]/07/2025 with resultant ileostomy bag. Followed by patient had admission to the ICU at [facility] from 01/20-01/25 for pulmonary edema/pericardial effusion/anemia/new onset a flutter/intra-abdominal abscess/bacteremia-> patient was transferred to [facility] where she has abscess drained and treated conservatively, Finished a course of antibiotics and discharged home on 02/17/25. Presented back to the ER on 02/18/25 overnight with a chief complaint of abdominal pain. Admitted for following Abdominal pain:CT of abdomen and pelvis showed peripancreatic edema concerning for pancreatitis. Also noted biliary sludge and mild gallbladder wall thickening concerning for possible acute cholecystitis. Patient has slightly elevated liver enzymes, lipase level remain elevated. CT and pelvis also showed 1.8x4.4 cm abdominal wall gas/fluid collection along the midline of the anterior abdominal wall-represents phlegmon/abscess. Noted multiple peripherally enhancing collections along the lateral margin seen of the liver, right lower abdominal quadrant-represent interval improvement in the abscesses Also noted findings concerning for gastroenteritis, presently without symptoms of gastroenteritis Will continue Dilaudid p.r.n. for pain control advance diet as mela Continue empiric Zosyn for now HIDA scan no definitive cholecystitis Surgery following, HX subtotal colectomy/hernia repair: Surgical site healing. HypOmagnesemia IV replacement HX ileostomy: Ileostomy care per RN Cardiomyopathy: compensated A flutter: continue amiodarone. Continue home Eliquis Hypertension: Blood pressure on the low normal side. Will hold home antihypertensives for now Hypomagnesemia and hypokalemia IV mag,IV K and continue to monitor DVT prophylaxis: Patient on Eliquis Code status: Full code out of bed and ambulate Quality Stroke Does the patient have a stroke diagnosis?: No VTE Prior VTE?: No VTE Risk Level:: Medical - moderate - high VTE Device Contraindication: Treatment Not Indicated VTE Drug Contraindication: N/A - Med Ordered
[2025-02-27 08:46] LABS: Basophils Absolute Auto 0.1 X10*3/uL (0.0-0.2); Basophils Percent Auto 0.7 % (0-2); Eosinophils Absolute Auto 0.4 X10*3/uL (0.0-0.4); Eosinophils Percent Auto 4.7 % (0-4); Hematocrit 28.1 % (37.0-47.0); Imm Gran Abs Auto 0.03 X10*3/uL (0.00-0.03); Imm Gran Pct Auto 0.3 % (0.0-0.4); Lymphocytes Absolute Auto 1.7 X10*3/uL (1.2-4.9); Lymphocytes Percent Auto 19.4 % (20-40); MANUAL DIFF FLAG SCAN; Mean Corpuscular Hemoglobin 29.5 pg (27.0-33.0); Mean Corpuscular Volume 92.1 fL (80.0-98.0); Mean Platelet Volume 10.2 fL (9.4-12.3); Monocytes Absolute Auto 0.8 X10*3/uL (0.1-1.2); Monocytes Percent Auto 9.3 % (2-11); Neutrophils Absolute Auto 5.8 x10*3/uL (2.0-8.3); Neutrophils Percent Auto 65.6 % (45-73); Platelet Count 246 X10*3/uL (160-400); Red Blood Count 3.05 X10*6/uL (4.20-5.50); Red Cell Distribution Width 15.9 % (11.0-16.0); SCAN SMEAR FLAG 1; White Blood Count 8.9 X10*3/uL (4.8-10.8)
[2025-02-27 08:57] VITALS: BP 110/65; PULSE 79
[2025-02-27] MEDS: 0.9 % Sodium Chloride Flush 3 ML SYRINGE IVFLUSH (08:57)
[2025-02-27] MEDS: carvediloL 6.25 MG TABLET PO (08:57)
[2025-02-27] MEDS: Apixaban 5 MG TABLET PO (08:57)
[2025-02-27] MEDS: Amiodarone HCL 200 MG TABLET PO (08:58)
[2025-02-27] MEDS: Multivitamin TABLET 1 TAB PO (08:58)
[2025-02-27] MEDS: Colchicine 0.6 MG TABLET PO (08:58)
[2025-02-27 09:06] LABS: SLIDE REVIEW VERIFIED
[2025-02-27] MEDS: HYDROmorphone HCl 1 MG/ML SYRINGE IVPUSH (09:12)
[2025-02-27] MEDS: ondansetron HCL 4 MG/2 ML VIAL IVPUSH (09:21)
[2025-02-27 09:42] LABS: Anion Gap 13 (12-20); Calcium 7.6 mg/dL (8.4-10.2); Carbon Dioxide 25 mmol/L (22-29); Chloride 101 mmol/L (96-108); Creatinine Clr Calc Pharmacy 79.1; Sodium 136 mmol/L (135-145)
[2025-02-27 09:59] VITALS: BP 110/65; PULSE 79
[2025-02-27 10:29] LABS: Lipase 189 U/L (8-78)
--- NOTE | 2025-02-27 10:41 | MHC.CM.PN ---
Per MD rounds patient medically cleared for dc home w/ resumption of [facility] services. Patient requesting BLS transport. Booked for 3pm. MD, RN and patient aware. Last IMM 02/26.
[2025-02-27 11:28] VITALS: BP 119/69; PULSE 82; RESP 17; TEMP 36.4; O2SAT 97
--- NOTE | 2025-02-27 12:18 | W.MHC.F2F ---
Service Date Service Date: 02/27/25 Encounter Date of encounter: 02/27/25 Reasons for Services Signs and symptoms assessed: Generalized weakness from prolonged hospitalization Reason for long term: wound care (ostomy care) and medication management Reason for physical therapy: home safety and mobility, therapeutic exercises and restore joint function Homebound: Leaving the home is medically contraindicated at this time without the asist of a device and/or another person due th the listed conditions above and below. Reason homebound: weakness related to hospital stay Homebound supporting statement: homeboudn due to weakness from prolonged hospitalization steming from recent abdominal surgery and readmission for pancreatitis and thus very deconditioned, weak and needs the assitance of another person Certification: Based on the above findings, I certify that this patient is confined to the home and needs intermittent long term care, physical therapy and/or speech therapy, or continues to need occupational therapy. The patient is under my care, and I have initiated the establishment of the plan of care. The patient will be followed by a physician who will periodically review the plan of care. Time Spent With Patient Time: Total time managing care of this patient today ____ minutes.
--- NOTE | 2025-02-27 13:50 | PC.NURSE ---
New Return to work note from MD to patient, work note deleted in d/c paper work.
--- NOTE | 2025-02-27 14:51 | PC.NURSE ---
Pt states she has 8 Dilaudid pills at home. MD notified of patients statement.
== END 2025-02-27 14:54 | disposition home health service (06) | DRG 439 ==
LOC: HO.ED 02-19 00:09 → HO.EDOVER 02-19 00:59 → HO.IMC 02-19 15:40 → HO.S3 02-23 02:29
PROVIDERS: Admitting Provider Hospitalist; Emergency Provider Emergency Medicine; PCP Internal Medicine; Visit Provider Internal Medicine
DX: K85.90 Acute pancreatitis without necrosis or infection, unspecified (principal); I42.9 Cardiomyopathy, unspecified; I48.92 Unspecified atrial flutter; I50.32 Chronic diastolic (congestive) heart failure; K81.0 Acute cholecystitis; K52.9 Noninfective gastroenteritis and colitis, unspecified; E83.42 Hypomagnesemia; I25.10 Atherosclerotic heart disease of native coronary artery without angina pectoris; E87.6 Hypokalemia; I11.0 Hypertensive heart disease with heart failure; Z93.2 Ileostomy status; Z87.891 Personal history of nicotine dependence; Z79.01 Long term (current) use of anticoagulants; Z79.899 Other long term (current) drug therapy
CPT/HCPCS: 36415; 74177; 78227; 80048; 80053; 80076; 81001; 83605; 83690; 83735; 83880; 84484; 85025; 85027; 85610; 86140; 87040; 93005; 97162; 97530; 99285; A9537; J1171; J2405; J2543; J2765; J2805; J3475; J3480; J7120; Q9967

== ENCOUNTER → 2025-02-18 20:06 | Outpatient (BNV) | payer MEDICARE, SELFPAY | PROVIDERS: Admitting Provider Hospitalist; Emergency Provider Emergency Medicine; PCP Internal Medicine; Visit Provider Internal Medicine Cardiovascular Disease | DX: R94.31 Abnormal electrocardiogram [ECG] [EKG] (principal); R53.1 Weakness | CPT/HCPCS: 93010 ==

== ENCOUNTER → 2025-02-18 20:12 | Outpatient (BNV) | payer MEDICARE, SELFPAY | PROVIDERS: Emergency Provider Emergency Medicine; PCP Internal Medicine; Visit Provider Radiology Diagnostic Radiology | DX: K86.89 Other specified diseases of pancreas (principal); R14.0 Abdominal distension (gaseous) | CPT/HCPCS: 74177 ==

== ENCOUNTER 2025-02-19 00:53 | Outpatient (BNV) | payer MEDICARE, SELFPAY | END 2025-02-19 12:40 | PROVIDERS: Admitting Provider Hospitalist; Emergency Provider Emergency Medicine; PCP Internal Medicine; Visit Provider Radiology Diagnostic Radiology | DX: K85.90 Acute pancreatitis without necrosis or infection, unspecified (principal); K40.90 Unilateral inguinal hernia, without obstruction or gangrene, not specified as recurrent | CPT/HCPCS: 78227 ==

== ENCOUNTER → 2025-02-19 00:53 | Outpatient (BNV) | payer MEDICARE, SELFPAY | PROVIDERS: Admitting Provider Hospitalist; Emergency Provider Emergency Medicine; PCP Internal Medicine; Visit Provider Internal Medicine | DX: K85.90 Acute pancreatitis without necrosis or infection, unspecified (principal) | CPT/HCPCS: 99232; 99233; 99499; G0180 ==

== ENCOUNTER → 2025-02-19 00:53 | Outpatient (BNV) | payer MEDICARE, SELFPAY | PROVIDERS: Admitting Provider Hospitalist; Emergency Provider Emergency Medicine; PCP Internal Medicine | DX: K85.90 Acute pancreatitis without necrosis or infection, unspecified (principal) | CPT/HCPCS: 99222; 99232 ==

== ENCOUNTER 2025-02-28 11:28 | Inpatient (IN) | payer MEDICARE, SELFPAY ==
[2025-02-28] VITALS (17 sets, daily range): BP systolic 82–116; BP diastolic 45–73; PULSE 77–99; RESP 14–18; TEMP 36.7–37; O2SAT 96–99; BMI 25.6
--- NOTE | ~2025-02-28 | CT_ITS ---
CLINICAL HISTORY: abd pain, recent hernia surgery CT abdomen and pelvis with contrast Comparison: CT - CT ABDOMEN PELVIS W IV CON - 02/28/25 17:[address]/SR - CT ABDOMEN PELVIS W IV CON - 02/18/25 22:38 EDT Findings: Increased, small right pleural effusion. Trace pericardial effusion, as before. Gallbladder is contracted with mural hyperemia and thickening, with surrounding fat stranding, as before. Hepatic contour is nodular without focal mass. Decreased, mild peripancreatic fat stranding. Solid organs are otherwise within normal limits. No bowel obstruction, pneumoperitoneum, or pneumatosis. Small amount of high density material within the right posterior urinary bladder. Appendix is not seen. Right anterior pelvic wall ostomy with bowel [id number] mm parastomal hernia, as before. Bowel containing anterior pelvic wall hernia as before, measuring 117 mm. Previously seen fluid and gas collection within the subcutaneous fat of the anterior pelvis has nearly resolved with a small residual gas collection measuring 8 mm. Peripherally enhancing central pelvic fluid and gas collection is unchanged, measuring 38 mm. Stable, peripherally enhancing fluid collection within the right pelvis measuring 23 mm. Stable high density focus within the subcutaneous fat of the left pelvis anteriorly measuring 24 mm. The bones are intact. IMPRESSION: 1. Stable pelvic abscesses. 2. Nearly resolved subcutaneous anterior pelvic wall abscess. 3. Stable bowel containing pelvic wall hernias with no evidence of associated obstruction. 4. Findings which would be consistent with acute cholecystitis in the appropriate clinical setting. This could be further assessed with ultrasound, if clinically indicated. 5. Resolving pancreatitis. 6. Cirrhosis. 7. Increased, small right pleural effusion. Stable trace pericardial effusion. 8. New small amount of high density material within the urinary bladder which may indicate posterior hemorrhage. Correlation with urinalysis is recommended. This document has been electronically signed by: Yunior Duran MD on 02/28/2025 17:49:44
--- NOTE | ~2025-02-28 | XR_ITS ---
CLINICAL HISTORY: line placement 1 view chest x-ray Comparison: None provided Findings: The tip of a right side IJ is overlying the right atrium. No consolidation or effusion. Normal size heart. No acute fracture. IMPRESSION: Tip of right IJ overlying the right atrium. This document has been electronically signed by: Sarah Trejo MD on 02/28/2025 20:15:06
--- NOTE | ~2025-02-28 | US_ITS ---
EXAMINATION: US PELVIS TRANSABDOMINAL AND TRANSVAGINAL HISTORY: Postmenopausal bleeding COMPARISON: Comparison is made with the prior examination dated 02/14/2012. TECHNIQUE: Transabdominal and endovaginal real-time 2D otto-scale ultrasound was performed. FINDINGS: Uterus: The uterus is normal in size, measuring 6.5 x 3.5 x 5.6 cm. Myometrium has heterogeneous echotexture. There is a right-sided fibroid measuring 12 x 10 x 12 mm. There is a left-sided fibroid measuring 14 x 11 x 13 mm. Endometrium: The endometrial stripe measures 2 mm in thickness. There is a small amount of fluid in the endometrial canal. There are nabothian cysts in the cervix. Right ovary: The right ovary measures 1.2 x 1.5 x 1.3 cm. The right ovary is normal in size and echotexture. Left ovary: The left ovary is not identified. Pelvic fluid: none. US/US pelvic and transvaginal IMPRESSION: 1. Fibroid uterus as described. 2. Endometrial stripe is not thickened. However, there is a small amount of fluid in the endometrial canal. 3. The left ovary is not visualized. Electronically signed by: Rashard Saha MD 03/19/2025 07:10 AM EDT
--- NOTE | ~2025-02-28 | MR_ITS ---
EXAMINATION: MRCP HISTORY: acute pancreatitis, elevated LFTs - unclear etiology COMPARISON: Correlation is made with a CT of the abdomen without contrast dated 03/12/2025 and an abdominal ultrasound dated 03/13/2025. TECHNIQUE: Axial gradient echo in and out of phase T1, axial T2 and fat suppressed T2, and coronal haste T2 with fat saturation images were obtained through the abdomen. 3D MRCP Reconstructed images and thick slab imaging of the biliary tree were obtained. FINDINGS: There is no significant loss of signal intensity within the liver on opposed phase imaging to suggest steatosis. The liver demonstrates a nodular contour, suggestive of cirrhosis. The gallbladder is distended. No calculi are noted. The common bile duct is normal in caliber. No intraluminal filling defects are identified to suggest choledocholithiasis. There is diffuse edema of the mesenteric fat which may indicate pancreatitis. This does not appear localized to the peripancreatic region, however. There is a small amount of ascites in the upper abdomen. No loculated fluid collection is seen. The pancreatic duct is not dilated. The spleen is top normal in size. The adrenals are unremarkable. There are bilateral renal cysts measuring up to 11 mm on the right and 10 mm on the left. There is no hydronephrosis. No retroperitoneal lymphadenopathy is identified in the upper abdomen. There are small bilateral pleural effusions, right greater than left. There is anasarca. MR/MR MRCP IMPRESSION: 1. No evidence of cholelithiasis or choledocholithiasis. 2. Diffuse edema of the mesenteric fat, which may be secondary to pancreatitis, although this finding is not localized to the peripancreatic region. 3. Nodular liver contour, suggestive of cirrhosis. 4. Anasarca. Small bilateral pleural effusions, right greater than left. Electronically signed by: Rashard Saha MD 03/14/2025 02:46 PM EDT
--- NOTE | ~2025-02-28 | IR_ITS ---
Uterine artery embolization CLINICAL HISTORY: Uterine fibroids resulting in bleeding. MEDICATIONS: -Fentanyl , Versed, Lidocaine 1% -Antibiotics: Ancef -For additional details, please see nursing flowsheet. COMPLICATIONS: None. ESTIMATED BLOOD LOSS: <5 ml SPECIMENS: None FLUOROSCOPY TIME: min MODERATE SEDATION TIME: min PROCEDURE NOTE: The procedure, risks, benefits, and alternatives were carefully explained to patient, and written informed consent was obtained. The patient was placed supine on the fluoroscopy table. A timeout was performed. The right groin was prepped and draped in usual sterile fashion. Local anesthesia was administered to the access site with lidocaine. Under ultrasound guidance, the right common femoral artery was accessed with a 5 Fr micropuncture set. A 5 Burundian sheath was placed. Angiogram through the sheath demonstrates the puncture site to be satisfactory. Up and over catheterization of the left common femoral artery was performed with a 4 Burundian Omni Flush catheter and 0.035 Glidewire. The Omni Flush catheter was exchanged for a 5 Burundian uterine artery catheter which was formed over the aortic bifurcation. The left internal iliac artery was selected. Angiography was performed to identify the origin of the left uterine artery. The left uterine artery was then selected with a 2.4 Burundian microcatheter. Angiography demonstrates hypervascular fibroid but no other abnormal findings. We embolized the left uterine artery with 0.5 vials of 500-700 embosphere particles to near stasis. Left uterine artery angiogram demonstrates successful embolization with no evidence of nontarget embolization. We then selected the right internal iliac artery. Angiography was performed at about the origin of the right uterine artery. The right uterine artery was then selected with a 2.4 Burundian microcatheter. Angiography demonstrates hypervascular fibroid but no other abnormal findings. Embolize the right uterine artery with 0.5 vials of 500-700 embosphere particles to stasis. Right uterine artery angiogram demonstrates successful embolization with no evidence of nontarget embolization. We then exchanged for the 4 [place]und[place] Omni Flush catheter which was positioned in the abdominal aorta at the level of the renal arteries. Abdominal aortic angiogram was performed which does not demonstrate any significant supply to the uterus from ovarian arteries. The uterine arteries are successfully embolized. Otherwise no significant abnormal findings. Satisfied with our result we elected to terminate the procedure. The catheter was removed. Angiogram through the sheath demonstrates no evidence of arterial injury with good flow down the visualized portion of the leg. The sheath was removed and hemostasis was achieved with a Celt device and manual compression and a dressing was applied. The patient was stable after the procedure and was transferred to the post anesthesia care unit. This procedure was performed under moderate sedation with a dedicated nurse and continuous monitoring of vital signs. IR/IR Embolization Tumor IMPRESSION: Technically successful embolization of the bilateral uterine arteries Electronically signed by: Abdirahman Tabor MD 03/13/2025 05:02 PM EDT
--- NOTE | ~2025-02-28 | US_ITS ---
EXAMINATION: US ABDOMEN LIMITED CLINICAL INFORMATION: Cholecystitis, pancreatitis.. COMPARISON: Correlated to CT dated March 12, 2025. TECHNIQUE: Real-time ultrasound of the right upper quadrant abdomen using grayscale technique. FINDINGS: PANCREAS: Main pancreatic duct measures 1 mm. No peripancreatic fluid collection. Trace of peripancreatic fluid, lesser sac. LIVER: Liver measures 15 cm. Nodular surface. Coarse echotexture. No gross solid or cystic lesion detected by echo technologist. No intrahepatic biliary ductal dilatation. GALLBLADDER: Fluid-filled. No gallbladder wall thickening. Trace of pericholecystic fluid. No intraluminal abnormality. COMMON BILE DUCT: 5 mm. RIGHT KIDNEY: 11 cm. Normal echotexture. Normal renal cortical thickness. No hydronephrosis. Extrarenal pelvis. No gross solid or cystic lesion detected by the technologist. . FREE FLUID: Small amount of free fluid. US/US abdomen limited IMPRESSION: No cholelithiasis or gross choledocholithiasis. Concerning liver disease/hepatocellular disease/cirrhosis. Trace amount of free fluid, lesser sac and ascites. Electronically signed by: Paulie Beatty MD 03/13/2025 10:19 AM EDT
--- NOTE | ~2025-02-28 | CT_ITS ---
CLINICAL HISTORY: ?acute pancreatitis CT abdomen and pelvis without contrast Comparison: None available Findings: Small bilateral pleural effusions, [id number], with adjacent compressive atelectasis. Dependent increased attenuation in the gallbladder which is likely vicarious excretion of previously administered contrast. There is gallbladder wall thickening and pericholecystic fluid. Cirrhotic liver morphology. Mild peripancreatic stranding. No fluid collection. No splenomegaly. The kidneys are excreting previously administered contrast. There is mild multifocal retention of previously administered contrast within the kidneys which can be seen in the setting of renal pathology. No hydronephrosis. Right nephrolithiasis is punctate. Punctate left renal parenchymal calcifications. Focal fat at the base of a lower pole left renal calyx. There is contrast in the bladder which also contains air. There is mild bladder wall thickening. Fibroid uterus. The other solid organs are unremarkable. No bowel dilation. Question mild wall thickening of the small bowel. Status post colectomy. Right lower quadrant ostomy. There is a parastomal hernia containing nonobstructed small bowel. No aneurysm. Mild calcified atherosclerotic disease. No lymphadenopathy. Trace ascites. Presacral edema. Mild diffuse mesenteric edema. There is infiltration of the subcutaneous fat which may indicate anasarca. Left lower quadrant anterior abdominal wall fluid collection measuring 3.0 cm is favored to be a seroma, however a small abscess could be considered No acute osseous abnormality. Impression: Mild peripancreatic stranding may indicate acute pancreatitis. No fluid collection. Evidence of volume overload including small bilateral pleural effusions, trace ascites and anasarca. Gallbladder wall thickening and pericholecystic fluid is likely secondary to systemic pathology rather than acute cholecystitis. Dependent increased attenuation in the gallbladder is likely vicarious excretion of previously administered contrast. Cholelithiasis and sludge may also be considered. A right upper quadrant ultrasound may be helpful if there is clinical concern for acute cholecystitis. Mild multifocal retention of previously administered contrast within the kidneys can be seen in the setting of renal pathology. Air within the bladder could be secondary to recent instrumentation. Emphysematous cystitis may also be considered. Correlate with urinalysis. Question mild wall thickening of the small bowel which could be secondary to edema. Enteritis of an infectious etiology is considered less likely. This document has been electronically signed by: Mandie Trivedi MD on 03/12/2025 17:44:08
--- NOTE | 2025-02-28 11:38 | MHC.CM.ED ---
Received notification from Kain VERNON that patient was d/c'd yesterday and returned to ER. Return referral made so [facility] can follow for d/c needs.
--- NOTE | 2025-02-28 11:39 | ED.ABDPAIN ---
HPI - Abdominal Pain General Chief Complaint: Abdominal Pain Stated Complaint: UPPER RT ABD PAIN,WEAKNESS PER EMS Time Seen by Provider: 02/28/25 11:38 Source: patient Mode of arrival: EMS Limitations: no limitations History of Present Illness ED Provider: Antonia Redman PA-C HPI narrative: 65-year-old female with a past medical history of HTN, HLD, CAD, CHF, a flutter on Eliquis, IBS, history of pancreatitis, recent subtotal colectomy/hernia repair at [facility] on 01/07/2025 with resultant ileostomy bag. Followed by patient had admission to the ICU at [facility] from 5988-524 for pulmonary edema/pericardial effusion/anemia/new onset a flutter/intra-abdominal abscess/bacteremia-> patient was transferred to [facility] where she has abscess drained and treated conservatively, Finished a course of antibiotics and discharged home on 02/17/25. Presented back to [facility] ED 02/18 for abdominal pain and was admitted D/C on 02/27. Presenting back to ED today (02/28) for persistent abdominal pain and weakness. Patient states she got home after discharge last night feeling weak woke up this morning with worsening weakness and abdominal pain that is radiating to her back. Denies chest pain, shortness of breath, vomiting, diarrhea, black/tarry stool, urinary symptoms Pertinent past history: myocardial infarction Onset (ago): week(s) Pain Consistency: constant Location: epigastric and RUQ Severity: moderate Quality: stabbing and aching Radiation: back Migration to: no migration Exacerbating factors: movement Relieving factors: nothing Associated symptoms: nausea Related Data Home Medications ?Medication ?Instructions ?Recorded ?Confirmed mirtazapine 15 mg tablet 15 mg PO BEDTIME 11/30/23 02/19/25 multivitamin with minerals-folic 1 tab PO DAILY 01/07/24 02/19/25 acid 200 mcg chewable tablet (Multivitamin Gummies) carisoprodol 350 mg tablet 350 mg PO BEDTIME 03/19/24 02/19/25 magnesium glycinate 400 mg PO DAILY 03/19/24 02/19/25 ondansetron 4 mg disintegrating 4 mg PO Q8H PRN Nausea And Vomiting 01/15/25 02/19/25 tablet amiodarone 200 mg tablet 200 mg PO DAILY 02/19/25 02/19/25 apixaban 5 mg tablet (Eliquis) 5 mg PO BID 02/19/25 02/19/25 colchicine 0.6 mg tablet 0.6 mg PO DAILY 02/19/25 02/19/25 esomeprazole magnesium 20 mg 20 mg PO DAILY@0630 02/19/25 02/19/25 capsule,delayed release (Nexium) gabapentin 100 mg capsule 100 mg PO Q8H 02/19/25 02/19/25 Previous Rx's ?Medication ?Instructions ?Recorded carvedilol 6.25 mg tablet (Coreg) 6.25 mg PO BID 90 days #180 tabs 10/17/24 atorvastatin 20 mg tablet 20 mg PO BEDTIME #90 tabs 11/04/24 hydromorphone 2 mg tablet 1 - 2 mg (0.5 - 1 x 2 mg) PO Q8H 02/27/25 PRN pain #20 tabs Allergies Allergy/AdvReac Type Severity Reaction Status Date / Time clams Allergy Severe Stomach Verified 02/28/25 11:41 Upset clavulanic acid (Augmentin) Allergy Unknown GI, Verified 02/28/25 11:41 Difficulty breathing codeine (CODEINE) Allergy Unknown SENSITIVIT Verified 02/28/25 11:41 Y erythromycin base Allergy Unknown GI, DIFF Verified 02/28/25 11:41 (Erythromycin Base) BREATHING Sulfa (Sulfonamide Allergy Unknown RASH Verified 02/28/25 11:41 Antibiotics) morphine (MORPHINE) AdvReac Severe Difficulty Verified 02/28/25 11:41 Breathing aspirin (Aspirin) AdvReac Mild STOMACH Verified 02/28/25 11:41 UPSET melatonin AdvReac Vomiting Verified 02/28/25 11:41 Review of Systems Review of Systems CONST: Negative for fever, body aches and chills. HENT: Negative for neck pain/stiffness, headache, congestion, sore throat, swelling. EYES: Negative for discharge/pain or vision changes. RESP: Negative for cough/hemoptysis and shortness of breath. CV: Negative chest pain, difficulty breathing, palpitations. ABD: POS epigastric/RUQ pain, nausea. Negative vomiting. : Negative increase frequency, dysuria, blood in urine or stool. MUSC: Negative for muscle aches, edema. SKIN: Negative rash, lesions/sores. NEURO: Negative headache, dizziness. POS total body weakness Yes all other systems are reviewed and are negative [facility] Past Medical History Medical History Insomnia Bilateral knee pain Polyarthralgia MARKIE (acute kidney injury) Back pain Arthritis History of transfusion of packed red blood cells Anemia Cardiomyopathy MARKIE (acute kidney injury) MARKIE (acute kidney injury) Anxiety Small bowel obstruction Myocardial infarction NSTEMI (non-ST elevated myocardial infarction) NSVT (nonsustained ventricular tachycardia) PVC (premature ventricular contraction) Hypertension Perforated diverticulum Irritable bowel syndrome with constipation Barretts esophagus GERD (gastroesophageal reflux disease) Surgical History S/P colon resection PIC line (peripherally inserted central catheter) removal History of low anterior resection of rectum Status post cardiac catheterization Ileostomy in place H/O dilation and curettage History of exploratory laparotomy (05/11/23) S/P colostomy Colovesical fistula History of esophagogastroduodenoscopy (EGD) Hx of colonoscopy Family History Family History Father Colon cancer Congestive heart failure Paternal Aunt Colon cancer Mother Congestive heart failure Afib Social History Social History Household Members: None Housing: House Are you a primary childcare director to a significant other at home: No Do you presently have visiting nurse or other home services: Yes ([facility]) Alcohol intake: never Comment: located near nursing station Patient Tobacco Use Status: Former Tobacco user Tobacco use type: Cigarette Cigarette Packs Per Day: 0.5 Cigarettes Per Day: 10.0 Years Smoked: 25 Smoked in Last 30 Days: No e-Cigarette/Vaping Use: Former Use Second Hand Smoke Exposure: No Use of substances other than those prescribed or required for medical reasons: No Substance Use Type: Marijuana Advance Directives: Yes Advance Directives on File: Yes Advance Directives Date on File: 12/29/23 Do you have a plan to hurt others: No Plan service: No Cognitive needs: No Hearing needs: No Vision needs: Yes Physical Exam ED Vital Signs: Vital Signs - 24 hr 02/28/25 11:37 02/28/25 12:30 02/28/25 12:45 Temperature Pulse Rate 98 91 88 Respiratory Rate 18 16 16 Blood Pressure 108/73 96/60 107/53 L Pulse Oximetry 99 96 96 Oxygen Delivery Method Room Air 02/28/25 13:00 02/28/25 13:15 02/28/25 13:30 Temperature Pulse Rate 83 81 84 Respiratory Rate 16 16 16 Blood Pressure 90/46 L 88/47 L 89/50 L Pulse Oximetry 96 96 96 Oxygen Delivery Method 02/28/25 13:45 02/28/25 14:00 02/28/25 14:15 Temperature Pulse Rate 84 88 80 Respiratory Rate 16 16 16 Blood Pressure 104/52 L 97/50 L 82/45 L Pulse Oximetry 96 96 96 Oxygen Delivery Method Room Air 02/28/25 14:30 02/28/25 14:47 02/28/25 18:00 Temperature 98.1 F Pulse Rate 81 80 84 Respiratory Rate 16 16 16 Blood Pressure 85/45 L 97/53 L 104/64 Pulse Oximetry 96 96 98 Oxygen Delivery Method Room Air Room Air Room Air 02/28/25 18:44 02/28/25 19:24 02/28/25 20:28 Temperature 98.4 F Pulse Rate 80 77 Respiratory Rate 16 17 Blood Pressure 105/56 L 97/55 L 109/61 Pulse Oximetry 98 96 Oxygen Delivery Method Room Air Room Air 02/28/25 20:41 Temperature Pulse Rate Respiratory Rate Blood Pressure 112/72 Pulse Oximetry Oxygen Delivery Method BMI result Body Mass Index 25.6 GENERAL APPEARANCE: ?AxOx4, chronically ill appearing, no acute distress. HEENT: ?NC, AT. MMM. EOMI, clear conjunctiva, oropharynx clear. NECK: ?Supple without lymphadenopathy.? No stiffness or restricted ROM. HEART:? Normal rate and regular rhythm, normal S1/S1, no m/r/g LUNGS:? CTAB, moving air well. No crackles or wheezes are heard. ABDOMEN: . TTP RUQ, epigastric region, no rigidity, no guarding, no rebound tenderness with ostomy bag and well approximated scar from recent surgical hernia repair. [id number] palpable lump of R lateral abdomen without pain when palpating. BACK: No CVAT, no obvious deformity. EXTREMITIES: ?Without cyanosis, clubbing or edema. No calf tenderness to palpation NEUROLOGICAL: ?Grossly nonfocal. Alert and oriented, moving all 4 extremities. Observed to ambulate with normal gait. Skin: ?Warm and dry without any rash. Procedures Central Line Placement Right IJ: Time Out Performed: Yes Patient Placed on Monitor/Pulse Ox: Yes MD Prep: mask, gown and gloves Central Line Prep: Chlorhexidine scrub and sterile drapes applied Local Anesthetic: lidocaine 1% Amount of anesthesia used (mL): 2 Ultrasound Used for Placement: Yes Central Line Lumen Inserted: single Post Procedure: sutured in place, good blood return, all ports aspirated, flushed, capped and sterile dressing applied Post Procedure X-Ray: no pneumothorax seen Patient Tolerated Procedure: well Complications: none Medical Decision Making Medical Decision Making MDM Narrative: 65-year-old female with a past medical history of HTN, HLD, CAD, CHF, a flutter on Eliquis, IBS, history of pancreatitis, recent subtotal colectomy/hernia repair [place] [facility] on 01/07/2025 with resultant ileostomy bag. Followed by patient had admission to the ICU at [facility] from 5919-524 for pulmonary edema/pericardial effusion/anemia/new onset a flutter/intra-abdominal abscess/bacteremia-> patient was transferred to [facility] where she has abscess drained and treated conservatively, Finished a course of antibiotics and discharged home on 02/17/25. Presented back to [facility] ED 02/18 for abdominal pain and was admitted D/C on 02/27. Presenting back to ED today (02/28) for persistent abdominal pain and weakness. Patient states she got home after discharge last night feeling weak woke up this morning with worsening weakness and abdominal pain that is radiating to her back. VSS, no acute distress, nontoxic appearing. On physical exam patient with mild TTP over right upper quadrant, epigastric region, ostomy bag in place, well approximated surgical hernia repair scar below umbilicus. EKG with ST depression, but no depression of contiguous leads. No ST elevation, no T-wave abnormalities. We will give IV fluids, 4 mg IV Zofran, 1 g IV Tylenol for pain. We will obtain EKG and troponin to rule out ACS. Awaiting labs, CT abdomen and pelvis with contrast Course 16:46- US guided IV placed by my colleague Kevyn Steele PA-C, patient tolerated well, line was established and is patent. Labs reveal hypokalemia of 2.8, Mag 1.5, we will replete with IV potassium 10 mEq x 4 hours, 2 g magnesium. Patient's nausea controlled at this time. Still awaiting CT results as department was updated that there was only 1 radio/tv technician who is taking imaging for entire hospital. Patient with increased pain will medicate with 1mg of dilaudid. 21:19- Central line placed into right IJV by my colleague Kevyn Steele PA-C due to patient loosing accessible line while in CT scan. Patient tolerated procedure well line is patent. CXR observes proper placement of central line overlying right atrium without pneumothorax. During this time patient urinated into commode and bright red blood found in toilet. Patient stated she has uterine fibroids that were found during her subtotal colectomy surgery, but is unsure if the bleeding came from her rectum as she states she felt something come out of her rectum. On rectal exam there was brown blood oozing from the anus when removing my finger. I consulted Hospitalist Dr. Garcias who accepted admission to medicine, Urology Dr. Muñoz who suggested to get a UA to evaluate blood in the urine and to discontinue eliquis, with possible bladder irrigation if needed, OB Dr. Hillman who will be following the patient during her course, and surgery Dr. Dorantes who will follow patient during her course of admission. Patient stating she is having RUQ and back pain, will medicate with 2mg dilaudid. Patient educated on her CT findings, and is agreeable to hospital admission. Awaiting repeat H&H to ensure her stability. VSS at this time. Patient will discontinue eliquis and remain NPO. Differential Diagnosis Differential Diagnoses: The differential diagnosis associated with the presentation includes Surgical complication SBO Cholecystitis Admission/Observation Consideration of admission/observation: Escalation of care including admission/observation considered Consult Healthcare Provider Management of the patient was discussed with: Hospitalist (Dr. Garcias ) and Plant Supervisor Consulted with OB, urology, and surgery Dr. Hillman, Dr. Muñoz, Dr. Dorantes Lab Data MDM Lab Attestation statement: I reviewed the patient's lab results. 02/28/25 21:16 02/28/25 12:50 Labs: Lab Results 02/28/25 02/28/25 02/28/25 Range/Units 12:50 19:47 21:16 WBC 12.1 H 9.8 (4.8-10.8) X10*3/uL RBC 3.04 L 2.73 L (4.20-5.50) X10*6/uL Hgb 8.9 L 8.1 L (12.0-16.0) g/dl Hct 28.0 L 24.6 L (37.0-47.0) % MCV 92.1 90.1 (80.0-98.0) fL MCH 29.3 29.7 (27.0-33.0) pg MCHC 31.8 32.9 (31.0-35.0) g/dl RDW 15.6 15.7 (11.0-16.0) % Plt Count 273 241 (160-400) X10*3/uL MPV 9.4 9.5 (9.4-12.3) fL Immature Gran % (Auto) 0.4 0.5 H (0.0-0.4) % Neut % (Auto) 73.1 H 64.3 (45-73) % Lymph % (Auto) 14.6 L 21.8 (20-40) % [place] % (Auto) 9.3 9.6 (2-11) % Eos % (Auto) 1.8 3.1 (0-4) % Baso % (Auto) 0.8 0.7 (0-2) % Lymph # (Auto) 1.8 2.1 (1.2-4.9) X10*3/uL [place] # (Auto) 1.1 0.9 (0.1-1.2) X10*3/uL Eos # (Auto) 0.2 0.3 (0.0-0.4) X10*3/uL Baso # (Auto) 0.1 0.1 (0.0-0.2) X10*3/uL Abs Immat Gran (auto) 0.05 H 0.05 H (0.00-0.03) X10*3/uL Absolute Neuts (auto) 8.8 H 6.3 (2.0-8.3) x10*3/uL Absolute Nucleated RBC 0.000 0.000 (0.0-0.012) X10*3/uL Nucleated RBC % (auto) 0.0 0.0 (0.0-0.2) /100WBC PT 19.5 H D (10.9-12.4) SEC INR 1.7 H (0.9-1.1) Sodium 134 L (135-145) mmol/L Potassium 2.8 L* (3.3-5.1) mmol/L Chloride 96 (96-108) mmol/L Carbon Dioxide 28 (22-29) mmol/L Anion Gap 13 (12-20) BUN 10 (9-16) mg/dL Creatinine 0.66 (0.5-1.4) mg/dL Estim Creat Clear Calc 73.4 Estimated GFR > 60 Random Glucose 90 (60-115) mg/dL Lactic Acid 0.7 (0.5-2.0) mmol/L Calcium 8.1 L D (8.4-10.2) mg/dL Magnesium 1.5 L (1.6-2.6) mg/dL Total Bilirubin 0.4 (0.0-1.0) mg/dL AST 46 H (5-31) U/L ALT < 6 (0-31) U/L Alkaline Phosphatase 156 H (39-117) U/L Troponin I High Sens 2.7 D (<3.5-17.0) ng/L Total Protein 7.7 (6.5-8.0) g/dL Albumin 2.6 L (3.5-5.0) g/dL Lipase 142 H (8-78) U/L Blood Type O Positive Antibody Screen NEGATIVE Independent Interpretation I performed an independent interpretation of an: EKG, Plain X-Ray and CT Scan Interpretation: I independently interpreted the EKG Vent. Rate : 103 BPM Atrial Rate : 103 BPM P-R Int : 158 ms QRS Dur : 64 ms QT Int : 420 ms P-R-T Axes : 93 13 90 degrees QTcB Int : 550 ms Sinus tachycardia with Premature supraventricular complexes and with frequent Premature ventricular complexes Low voltage QRS Radiology Impression Discussion of test interpretation with radiology: I have reviewed the radiologist's reading. Radiologist Impression: CT abdomen/pelvis Findings: Increased, small right pleural effusion. Trace pericardial effusion, as before. Gallbladder is contracted with mural hyperemia and thickening, with surrounding fat stranding, as before. Hepatic contour is nodular without focal mass. Decreased, mild peripancreatic fat stranding. Solid organs are otherwise within normal limits. No bowel obstruction, pneumoperitoneum, or pneumatosis. Small amount of high density material within the right posterior urinary bladder. Appendix is not seen. Right anterior pelvic wall ostomy with bowel [id number] mm parastomal hernia, as before. Bowel containing anterior pelvic wall hernia as before, measuring 117 mm. Previously seen fluid and gas collection within the subcutaneous fat of the anterior pelvis has nearly resolved with a small residual gas collection measuring 8 mm. Peripherally enhancing central pelvic fluid and gas collection is unchanged, measuring 38 mm. Stable, peripherally enhancing fluid collection within the right pelvis measuring 23 mm. Stable high density focus within the subcutaneous fat of the left pelvis anteriorly measuring 24 mm. The bones are intact. IMPRESSION: 1. Stable pelvic abscesses. 2. Nearly resolved subcutaneous anterior pelvic wall abscess. 3. Stable bowel containing pelvic wall hernias with no evidence of associated obstruction. 4. Findings which would be consistent with acute cholecystitis in the appropriate clinical setting. This could be further assessed with ultrasound, if clinically indicated. 5. Resolving pancreatitis. 6. Cirrhosis. 7. Increased, small right pleural effusion. Stable trace pericardial effusion. 8. New small amount of high density material within the urinary bladder which may indicate posterior hemorrhage. Correlation with urinalysis is recommended. This document has been electronically signed by: Yunior Duran MD on 02/28/2025 17:49:44 Dictated By: Yunior Duran MD Signed By: <Electronically signed by Yunior Duran MD in [place]> 02/28/25 4350 CXR Findings: The tip of a right side IJ is overlying the right atrium. No consolidation or effusion. Normal size heart. No acute fracture. IMPRESSION: Tip of right IJ overlying the right atrium. This document has been electronically signed by: Sarah Trejo MD on 02/28/2025 20:15:06 Dictated By: Sarah Trejo MD Signed By: <Electronically signed by Sarah Trejo MD in [place]> 02/28/252015 External Record Review External record reviewed: Inpatient record, Office record, Outpatient record and Prior outpatient labs Chronic Conditions Patient?s care impacted by: Other (A flutter on Eliquis, subtotal colectomy,) Medications Administered Discontinued Medications Generic Name Dose Route Start Last Admin Trade Name Freq PRN Reason Stop Dose Admin Hydromorphone HCl 1 mg 02/28/25 18:56 02/28/25 19:15 Hydromorphone Hcl 1 Mg/Ml Syringe IVPUSH 02/28/25 18:57 1 mg ONCE ONE Administration Protocol Hydromorphone HCl 2 mg 02/28/25 21:06 02/28/25 21:26 Hydromorphone Hcl 2 Mg/Ml Vial IVPUSH 02/28/25 21:07 2 mg ONCE ONE Administration Protocol Lactated Ringer's 1,000 mls @ 999 mls/hr 02/28/25 12:22 02/28/25 14:44 Lr IV 02/28/25 13:22 Infused .Q1H1M ONE Infusion Acetaminophen 1,000 mg in 100 mls @ 400 mls/hr 02/28/25 12:22 02/28/25 13:40 Ofirmev IV 02/28/25 12:36 Infused ONCE ONE Infusion Magnesium Sulfate 2 gm in 50 mls @ 150 mls/hr 02/28/25 13:27 02/28/25 14:00 Magnesium Sulfate/H2o IV 02/28/25 13:46 Infused ONCE ONE Infusion Potassium Chloride 10 meq in 100 mls @ 100 mls/hr 02/28/25 13:45 02/28/25 21:45 Potassium Chloride/H20 IV 02/28/25 17:44 Infused Q1H ARISTIDES Infusion Lactated Ringer's 1,000 mls @ 999 mls/hr 02/28/25 14:21 02/28/25 15:40 Lr IV 02/28/25 15:21 Infused .Q1H1M ONE Infusion Iohexol 100 ml 02/28/25 17:16 02/28/25 17:16 Iohexol 350 Mg/Ml 100 Ml Infus..Btl IV 02/28/25 17:17 100 ml ONCE ONE Administration Ondansetron HCl 4 mg 02/28/25 12:22 02/28/25 12:38 Ondansetron Hcl 4 Mg/2 Ml Vial IVPUSH 02/28/25 12:23 4 mg ONCE ONE Administration Ondansetron HCl 4 mg 02/28/25 21:22 02/28/25 21:26 Ondansetron Hcl 4 Mg/2 Ml Vial IVPUSH 02/28/25 21:23 4 mg ONCE ONE Administration Critical Care Time Critical Care Time Total Critical Care Time: 76 Attestation: I have personally provided 76 minutes of critical care time exclusive of time spent on separately billable procedures. Time includes review of lab data, radiology results, discussion with consultants, and monitoring for potential decompensation. Intervention performed as documented. Discharge Plan Discharge Clinical Impression: Acute hypokalemia Patient Disposition: Admitted As Inpatient
--- NOTE | 2025-02-28 11:40 | ECG_ITS ---
Test Reason : weakness Blood Pressure : */* mmHG Vent. Rate : 103 BPM Atrial Rate : 103 BPM P-R Int : 158 ms QRS Dur : 64 ms QT Int : * ms P-R-T Axes : 93 13 90 degrees QTcB Int : * ms Artifact in tracing Sinus tachycardia Cannot rule out Anterior infarct , age undetermined Borderline ECG When compared with ECG of 18-Feb-2025 20:25, due to artifact cannot compare Referred By: Feroz Knight Electronically Signed By: TERELL PATEL
[2025-02-28] MEDS: Lactated Ringers 1,000 ML 999 ML IV ×2 (12:39→14:35)
[2025-02-28 12:53] LABS: MANUAL DIFF FLAG NO
[2025-02-28 12:56] LABS: Hematocrit 28.0 % (37.0-47.0); Hemoglobin 8.9 g/dl (12.0-16.0); Imm Gran Abs Auto 0.05 X10*3/uL (0.00-0.03); Imm Gran Pct Auto 0.4 % (0.0-0.4); Lymphocytes Absolute Auto 1.8 X10*3/uL (1.2-4.9); Mean Corpuscular HGB Conc 31.8 g/dl (31.0-35.0); Mean Corpuscular Hemoglobin 29.3 pg (27.0-33.0); Mean Corpuscular Volume 92.1 fL (80.0-98.0); NRBC Abs Auto 0.000 X10*3/uL (0.0-0.012); NRBC Pct Auto 0.0 /100WBC (0.0-0.2); Platelet Count 273 X10*3/uL (160-400); Red Blood Count 3.04 X10*6/uL (4.20-5.50); White Blood Count 12.1 X10*3/uL (4.8-10.8)
[2025-02-28 13:21] LABS: Alanine Aminotransferase < 6 U/L (0-31); Albumin Level 2.6 g/dL (3.5-5.0); Alkaline Phosphatase 156 U/L (39-117); Anion Gap 13 (12-20); Aspartate Amino Transferase 46 U/L (5-31); Blood Urea Nitrogen 10 mg/dL (9-16); Calcium 8.1 mg/dL (8.4-10.2); Carbon Dioxide 28 mmol/L (22-29); Chloride 96 mmol/L (96-108); Creatinine Clr Calc Pharmacy 73.4; Estimated Glomerular Filt Rate > 60; Magnesium 1.5 mg/dL (1.6-2.6); Potassium 2.8 mmol/L (3.3-5.1); Sodium 134 mmol/L (135-145); Total Protein 7.7 g/dL (6.5-8.0)
--- OUTSIDE RECORDS SUMMARY | 2025-02-28 13:28 | XMS_ITS | Data Portability ---
Author Organization [facility], [facility] Address [address] [place] [address] Care Team Providers Care Forms Analysis Manager Name Role Phone SERGE CHAVIS Primary Care Provider Assessment No assessment recorded. Plan of Treatment Reminders Order Date Submit Date Provider Last Modified By Organization Details Last Modified Time Details Appointments None record ed. Lab None record ed. Referral None record ed. Procedures None record ed. Surgeries None record ed. Imaging None record ed. Medication Orders None record ed. Patient TargetsNo targets recorded. Patient InstructionsNo instructions recorded. Reason for Referral None Reported. Problems Name Problem SNOMED Code Status Onset Date Resolution Date Notes Provider Name and Address Organization Details Recorded Time Osteoarthritis of knee 133950357 Active 2023 Abdirahman Kimbrough PA-C [address] [facility], [place], [address], [facility] 4 07:06:53 Problem Notes None recorded. Procedures Surgical History Date Name Laterality Status Provider Name and Address Organization Details Recorded Time 5 Knee Kenalog 40 1cc Injection, Bilateral completed Abdirahman Kimbrough PA-C [address] [facility], [place], [address], [facility] 10/21/2024 08:15:18 4 Knee Kenalog 40 1cc Injection, Bilateral completed Abdirahman Kimbrough PA-C [address], [place], [address], [facility] 07/22/2024 07:59:12 4 Knee Kenalog 40 1cc Injection, Bilateral completed Abdirahman Kimbrough PA-C [address], [place], [address], [facility] 04/23/2024 05:33:06 4 Knee Kenalog 40 1cc Injection, Bilateral completed Abdirahman Kimbrough PA-C [address], [place], [address], [facility] 01/15/2024 07:07:11 Imaging Results None recorded. Procedure Notes None recorded. Medical Equipment None Reported. Allergies Allergen ID Allergen Name Allergen Category Reaction Reaction Severity Criticality Documentation Date Start Date Code Code System Note Provider Name and Address Organization Details Recorded Time 88661 Non-stero idal anti-infl ammatory agent (product) medicatio n Not available Not available Not available 11/06/20232022 57691 005 SNOMED Not Available [facility] 4 13:16:37 42805 Augmentin medicatio n Not available Not available Not available 11/06/20232015 19044 2 RxNorm Not Available [facility] 4 13:16:37 19685 erythromy florentin medicatio n Not available Not available Not available 11/06/20232020 4053 RxNorm Not Available [facility] 4 13:16:37 94415 aspirin medicatio n Not available Not available Not available 11/06/20232015 1191 RxNorm Not Available [facility] 4 13:16:38 59268 Substance with sulfonami de structure and antibacte rial mechanism of action (substanc e) medicatio n Not available Not available Not available 11/06/20232015 51615 8003 SNOMED Not Available [facility] 4 13:16:38 Medications Name Sig Start Date Stop Date Status Note LastModified by Organization Details LastModified Time carisoprodol 350 mg tablet TAKE ONE TABLET BY MOUTH DAILY AT BEDTIME active Not Available Not Available N ot Available atorvastatin 80 mg tablet TAKE 1 TABLET BY MOUTH EVERY DAY active Not Available Not Available No t Available potassium chloride ER 10 mEq capsule,exte nded release TAKE ONE CAPSULE BY MOUTH TWICE A DAY active Not Available Not Available No t Available clonidine HCl 0.1 mg tablet TAKE 1 TABLET BY MOUTH EVERYDAY AT BEDTIME active Not Available Not Available No t Available carvedilol 6.25 mg tablet TAKE ONE TABLET BY MOUTH TWICE A DAY. MUST ADMINISTER WITH A MEAL active Not Available Not Available Not Available atorvastatin 20 mg tablet TAKE ONE TABLET BY MOUTH DAILY AT BEDTIME active Not Available Not Available N ot Available hydrocodone 5 mg-acetamino phen 325 mg tablet TAKE 1 TABLET BY MOUTH EVERY 4 HOURS NEEDED FOR PAIN active Not Available Not Available No t Available ondansetron HCl 4 mg tablet TAKE ONE TABLET BY MOUTH EVERY 8 HOURS NEEDED FOR NAUSEA active Not Available Not Available No t Available metoprolol succinate ER 100 mg tablet,exten ded release 24 hr TAKE 1 AND 1/2 TABLETS BY MOUTH DAILY active Not Available Not Available No t Available metronidazol e 500 mg tablet TAKE ONE TABLET BY MOUTH THREE TIMES A DAY, TAKE AT 5PM, 6PM, AND 8PM, ON THE NIGHT BEFORE YOUR SURGERY active Not Available Not Available No t Available amlodipine 5 mg tablet TAKE 1 TABLET BY MOUTH EVERY DAY active Not Available Not Available No t Available ciprofloxaci n 500 mg tablet TAKE 1 TABLET BY MOUTH EVERY 12 HOURS FOR 7 DAYS active Not Available Not Available N ot Available spironolacto ne 25 mg tablet active Not Available Not Available Not Available carvedilol 3.125 mg tablet TAKE ONE TABLET BY MOUTH TWICE A DAY FOR HYPERTENSIO N. active Not Available Not Available No t Available hydromorphon e 2 mg tablet TAKE 1 OR 2 TABLETS BY MOUTH EVERY 3 HOURS NEEDED FOR PAIN ABDOMEN); NO ALCOHOL/DRI VING. active Not Available Not Available No t Available lorazepam 0.5 mg tablet TAKE 1 TABLET BY MOUTH EVERY 8 HOURS NEEDED FOR ANXIETY active Not Available Not Available No t Available trazodone 100 mg tablet TAKE 2 TABLETS BY MOUTH DAILY AT BEDTIME,X30 DAYS active Not Available Not Available No t Available sodium bicarbonate 650 mg tablet DISSOLVE AND TAKE ONE TABLET BY MOUTH DAILY NEEDED FOR STOMACH UPSET. active Not Available Not Available No t Available pantoprazole 40 mg tablet,delay ed release TAKE 1 TABLET BY MOUTH TWICE A DAY WITH MEALS active Not Available Not Available No t Available ferrous sulfate 325 mg (65 mg iron) tablet TAKE 1 TAB ORALLY DAILY AT LUNCH active Not Available Not Available No t Available prednisone 50 mg tablet TAKE 1 TABLET BY MOUTH 13 HOURS, 7 HOURS THEN 1 HOUR BEFORE YOUR APPOINTMENT WHERE YOU WILL BE RECEIVING IV CONTRAST DYE FOR YOUR IMAGING ST active Not Available Not Available N ot Available lidocaine 5 % topical patch APPLY 2 PATCHES TRANSDERMAL EVERY MORNING. OFF FOR 12 HOURS active Not Available Not Available No t Available losartan 25 mg tablet TAKE 1 TABLET BY MOUTH EVERY DAY active Not Available Not Available No t Available lisinopril 30 mg tablet TAKE 1 TABLET BY MOUTH EVERY DAY active Not Available Not Available No t Available hydrochlorot hiazide 25 mg tablet TAKE 1 TABLET (25 MG TOTAL) BY MOUTH DAILY. active Not Available Not Available No t Available mirtazapine 15 mg tablet TAKE ONE TABLET BY MOUTH DAILY AT BEDTIME active Not Available Not Available N ot Available nystatin 100,000 unit/gram topical powder APPLY TOPICALLY TO AFFECTED AREA TWO TIMES A DAY active Not Available Not Available Not Available lorazepam 1 mg tablet TAKE 1 TABLET BY MOUTH EVERY DAY NEEDED FOR ANXIETY FOR 30 DAYS active Not Available Not Available No t Available neomycin 500 mg tablet TAKE TWO TABLETS BY MOUTH THREE TIMES A DAY TAKE AT 5PM, 6PM, AND 8PM, ON THE NIGHT BEFORE YOUR SURGERY active Not Available Not Available No t Available hydromorphon e 4 mg tablet TAKE ONE TABLET BY MOUTH EVERY 4 HOURS FOR 3 DAYS NEEDED FOR MODERATE PAIN; PLEURISY. active Not Available Not Available No t Available fluticasone propionate 50 mcg/actuatio n nasal spray,suspen arsen SPRAY 1 SPRAY INTO EACH NOSTRIL EVERY DAY active Not Available Not Available No t Available metronidazol e 375 mg capsule TAKE 2 TABS AT 2 PM, 2 TABS AT 3PM AND 2 TABS AT 11PM THE DAY BEFORE SURGERY active Not Available Not Available No t Available esomeprazole magnesium 20 mg capsule,edan yed release TAKE ONE CAPSULE BY MOUTH EVERY DAY active Not Available Not Available No t Available Laxative (bisacodyl) 5 mg tablet,delay ed release TAKE 2 TABLETS BY MOUTH AT BEDTIME active Not Available Not Available No t Available mirtazapine 7.5 mg tablet TAKE 1 TABLET BY MOUTH NIGHTLY AT BEDTIME. active Not Available Not Available No t Available Potassium Chloride ER Potassium Chloride ER 10MEQ Capsule Extended Release 2023 active Statu s: 'Curr ent'; Not Available Not Available Not Available GaviLyte-G 236 gram-22.74 gram-6.74 gram-5.86 gram oral solution TAKE 4000 ML BY MOUTH ONCE FOR ONE DOSE active Not Available Not Available No t Available Gavilax 17 gram/dose oral powder DRINK 238 GRAMS BY MOUTH ONCE DIRECTED BY [facility] active Not Available Not Available No t Available potassium chloride ER 20 mEq tablet,exten ded release TAKE 1 TABLET BY MOUTH EVERY DAY active Not Available Not Available No t Available magnesium 100 mg (as glycinate) capsule TAKE 4 CAPSULES BY MOUTH DAILY. active Not Available Not Available No t Available Vitals Date Recorded Body height Body mass index (BMI) Body weight Provider Name and Address Organization Details Last Updated DateTime 10/21/2024 157.48 cm 32 kg/m2 73336.66 g Abdirahman Kimbrough PA-C [address] [place] [address], [phone], [facility] 10/21/2024 13:49:42 Date Recorded Body height Body mass index (BMI) Body weight Provider Name and Address Organization Details Last Updated DateTime 01/15/2024 157.48 cm 32 kg/m2 92176.66 g Abdirahman Kimbrough PA-C [address] [place] [address], [phone], [facility] 01/15/2024 11:05:53 Date Recorded Body height Body mass index (BMI) Body weight Provider Name and Address Organization Details Last Updated DateTime 04/23/2024 157.48 cm 32 kg/m2 88711.66 g Abdriahman Kimbrough PA-C [address] [place] [address], [phone], [facility] 04/23/2024 11:16:23 Date Recorded Body height Body mass index (BMI) Body weight Provider Name and Address Organization Details Last Updated DateTime 07/22/2024 157.48 cm 32 kg/m2 51404.66 g Abdirahman Kimbrough PA-C [address] [place] [address], [phone], [facility] 07/22/2024 12:49:40 Social History None recorded. Functional Status None recorded. Mental Status None recorded. Family History Nothing Reported. Medical History Condition Response Gastrointestinal Disease Y Kidney/Bladder Problems Y Heart Attack ([place]) Y Gynecological HistoryNo gynecological history recorded. Obstetrics History GPAL:G 0 P 0 0 0 0 Past Encounters Encounter ID Performer Location Encounter Start Date Encounter Closed Date Diagnosis/Indication Diagnosis SNOMED-CT Code Diagnosis ICD10 Code Diagnosis Note [id number] [facility] [address] [place] [address] 01/15/2024 10:44:22 01/25/2024 13:44:56 Osteoarthritis of knee 273690533 M17.9 [id number] Abdirahman Kimbrough PA-C [facility] [address] [place] [address] 04/23/2024 10:57:15 05/10/2024 08:44:54 Osteoarthritis of knee 405270262 M17.9 [id number] Abdirahman Kimbrough PA-C [facility] [address] [place] [address] 07/22/2024 12:38:38 08/08/2024 15:29:32 Osteoarthritis of knee 007052857 M17.9 [id number] Abdirahman Kimbrough PA-C [facility] [address] [place] [address] 10/21/2024 13:25:27 11/06/2024 11:52:24 Osteoarthritis of knee 518833186 M17.9 Health Concerns Section Related Observation LastModified by Organization Detai ls LastModified Time None Recorded Concern Status LastModified by Organization Details LastModified Time None Recorded Advance Directives Directive None Recorded Payers Insurance Date Sequence Insurance Name Policy Number Policy Mendoza Covered Member ID Mendoza Member ID Guarantor Name 04/23/2024 1 [facility] ER [id number] Kia Anaid Phelps [id number] Kia Phelps 02/04/2025 1 [employer] (MEDICARE REPLACEMENT /ADVANTAGE - PPO) [id number] Kia Phelps [id number] Kia Phelps Notes Date Note Type Note Provider Name and Address Organization Details Recorded Time 01/15/2024 text/html I am seeing the patient today under the supervision of Dr. Davila who was available but who did not see the patient. HPI: Kia comes in today for evaluation of both knees. She has had some substantial medical issues develop in her life she had a infected bowel almost perforated developed myocardial infarction secondarily was hospitalized for a month. She become significantly deconditioned she is in cardiac rehabilitation now has been having some difficulty dissipating and secondary to her knee arthritis.Clinical uptake: Patient reports she is scheduled to go some reversal of her ostomy and that she is hoping to consider joint replacement sometime in the fall. PMH/PSH/MEDS/ALL/FMH /SOC HX/ ROS: All reviewed in detail per my medical intake sheetGeneral Exam: Vitals signs as noted below, antalgic gait noted.Mental Status: Alert and oriented x3. Normal insight, affect, and grooming.NURSE TECH: Gross motor coordination is intact. No spasticity or clonus noted.Extremities: Calves are soft and nontender. Skin on lower extremities is intact. Palpable pedal pulses bilaterally. Orthopedic Exam:Bilateral knees Restricted range of motion good anterior-posterior stability no laxity valgus or varus stressing. Exquisite medial joint line tenderness with patellofemoral crepitance noted, 1+ effusion, 4/5 strength. X-rays report: 4 views ordered and independently reviewed at [facility] of the taken previously show advanced medial compartment and patellofemoral osteoarthritis Assessment: End-stage follow-up medial compartment osteoarthritis Plan: The patient was thoroughly counseled today regarding their knee condition, its natural history, and the treatment options both nonoperative and operative. The patient is interested in receiving an injection with corticosteroid. Reemphasized the benefits of physical therapy, she currently attending cardiac rehabilitation. Abdirahman Kimbrough PA-C [address] [place] [address] [address] [facility], [place], [address], [facility] 01/15/2024 11:25:26 04/23/2024 text/html I am seeing the patient today under the supervision of Dr. Davila who was available but who did not see the patient. HPI: Kia comes in today for evaluation of both knees. She has had some substantial medical issues develop in her life she had a infected bowel almost perforated developed myocardial infarction secondarily was hospitalized for a month. She become significantly deconditioned she is in cardiac rehabilitation now has been having some difficulty dissipating and secondary to her knee arthritis.Clinical uptake: Kia returns today for follow-up evaluation reporting continued improvement with her overall health, she underwent previous reversal of her ostomy and is now feeling better she has some questions today about the role of total knee arthroplasty for long-term management of her osteoarthritis. PMH/PSH/MEDS/ALL/FMH /SOC HX/ ROS: All reviewed in detail per my medical intake sheetGeneral Exam: Vitals signs as noted below, antalgic gait noted.Mental Status: Alert and oriented x3. Normal insight, affect, and grooming.NURSE TECH: Gross motor coordination is intact. No spasticity or clonus noted.Extremities: Calves are soft and nontender. Skin on lower extremities is intact. Palpable pedal pulses bilaterally. Orthopedic Exam:Bilateral knees Restricted range of motion good anterior-posterior stability no laxity valgus or varus stressing. Exquisite medial joint line tenderness with patellofemoral crepitance noted, 1+ effusion, 4/5 strength. X-rays report: 4 views ordered and independently reviewed at [facility] of the taken previously show advanced medial compartment and patellofemoral osteoarthritis Assessment: End-stage follow-up medial compartment osteoarthritis Plan: The patient was thoroughly counseled today regarding their knee condition, its natural history, and the treatment options both nonoperative and operative. The patient is interested in receiving an injection with corticosteroid. Reemphasized the benefits of physical therapy, she currently attending cardiac rehabilitation. Abdirahman Kimbrough PA-C [address] [place] [address] [address], [place], [address], [facility] 04/23/2024 11:34:22 07/22/2024 text/html I am seeing the patient today under the supervision of Dr. Davila who was available but who did not see the patient. HPI: Kia comes in today for evaluation of both knees. She has had some substantial medical issues develop in her life she had a infected bowel almost perforated developed myocardial infarction secondarily was hospitalized for a month. She become significantly deconditioned she is in cardiac rehabilitation now has been having some difficulty dissipating and secondary to her knee arthritis.Clinical uptake: Kia returns today for follow-up evaluation reporting continued improvement with her overall health, she underwent previous reversal of her ostomy and is now feeling better she has some questions today about the role of total knee arthroplasty for long-term management of her osteoarthritis. She is having some issues with regards to her colostomy she is scheduled to see a specialist at [facility] in [place] going to require her to have probably another operation for her colostomy and therefore likely going to delay her knee arthroplasty until sometime in the late spring. PMH/PSH/MEDS/ALL/FMH /SOC HX/ ROS: All reviewed in detail per my medical intake sheetGeneral Exam: Vitals signs as noted below, antalgic gait noted.Mental Status: Alert and oriented x3. Normal insight, affect, and grooming.NURSE TECH: Gross motor coordination is intact. No spasticity or clonus noted.Extremities: Calves are soft and nontender. Skin on lower extremities is intact. Palpable pedal pulses bilaterally.Orthoped ic Exam:Bilateral knees Restricted range of motion good anterior-posterior stability no laxity valgus or varus stressing. Exquisite medial joint line tenderness with patellofemoral crepitance noted, 1+ effusion, 4/5 strength. X-rays report: 4 views ordered and independently reviewed at [facility] of the taken previously show advanced medial compartment and patellofemoral osteoarthritis Assessment: End-stage follow-up medial compartment osteoarthritis Plan: The patient was thoroughly counseled today regarding their knee condition, its natural history, and the treatment options both nonoperative and operative. The patient is interested in receiving an injection with corticosteroid. Reemphasized the benefits of physical therapy, she currently attending cardiac rehabilitation. Abdirahman Kimbrough PA-C [address] [place] [address] [address], [place], [address], [facility] [place] [facility] 07/22/2024 13:07:57 10/21/2024 text/html I am seeing the patient today under the supervision of Dr. Davila who was available but who did not see the patient.HPI: Kia comes in today for evaluation of both knees. She has had some substantial medical issues develop in her life she had a infected bowel almost perforated developed myocardial infarction secondarily was hospitalized for a month. She become significantly deconditioned she is in cardiac rehabilitation now has been having some difficulty dissipating and secondary to her knee arthritis.Clinical uptake: Kia returns today for follow-up evaluation reporting continued improvement with her overall health, she underwent previous reversal of her ostomy and is now feeling better she has some questions today about the role of total knee arthroplasty for long-term management of her osteoarthritis. She is having some issues with regards to her colostomy she is scheduled to see a specialist at [facility] in going to require her to have probably another operation for her colostomy and therefore likely going to delay her knee arthroplasty until sometime in the late spring. PMH/PSH/MEDS/ALL/FMH /SOC HX/ ROS: All reviewed in detail per my medical intake sheetExtremities: Calves are soft and nontender. Skin on lower extremities is intact. Palpable pedal pulses bilaterally.Orthoped ic Exam:Bilateral knees Restricted range of motion good anterior-posterior stability no laxity valgus or varus stressing. Exquisite medial joint line tenderness with patellofemoral crepitance noted, 1+ effusion, 4/5 strength. X-rays report: 4 views ordered and independently reviewed at [facility] of the taken previously show advanced medial compartment and patellofemoral osteoarthritis Assessment: End-stage follow-up medial compartment osteoarthritis Plan: The patient was thoroughly counseled today regarding their knee condition, its natural history, and the treatment options both nonoperative and operative. The patient is interested in receiving an injection with corticosteroid. Reemphasized the benefits of physical therapy, she currently attending cardiac rehabilitation. Abdirahman Kimbrough PA-C [address] [place], [place] [address] [address], [place], [address], [place] [facility] [place] 10/21/2024 14:54:05 OBGyn Episode No OBEpisode recorded.
[2025-02-28] MEDS: Magnesium Sulfate/H2O 2 GM/50 ML PIGGYBACK IV (13:46)
[2025-02-28 13:55] LABS: Troponin-I High Sensitivity 2.7 ng/L (<3.5-17.0)
[2025-02-28] MEDS: Potassium Chloride/H20 10 MEQ/100 ML PIGGYBACK 100 MEQ IV ×4 (14:35→20:22)
[2025-02-28] MEDS: iohexoL 350 MG/ML 100 ML INFUS..BTL IV (17:16)
[2025-02-28 19:06] LABS: Lipase 142 U/L (8-78)
--- NOTE | 2025-02-28 19:13 | PC.NURSE ---
pt transferred from ED15 to ED4. when assuming care of this patient, pt noted to be a&ox4. vss and up to date aside from being hypotensive. nsr on the powerbuilder. on RA w/o difficulty. no sob/wob noted. respirations even/unlabored. per previous RN, IV access became dislodged and patient no longer had IV access but continued to decompensate/become hypotensive in the 80s systollically. per provider, central line is necessary at this time d/t most recent labs and scans. triple lumen 16cm central line placed on the right side of neck by PATIENCE Bagley. XR confirmed placement. IVF/medication administered per provider order. pt verbalizing 10/10 RUQ pain radiating to back s/p procedure. provider notified/aware. medication administered per provider order. effectiveness pending. pt otherwise noted to not be in any acute distress. pt remains in hospital bed to promote comfort. plan of care ongoing. call beyer placed within reach.
[2025-02-28 21:19] LABS: MANUAL DIFF FLAG NO
[2025-02-28 21:21] LABS: Hematocrit 24.6 % (37.0-47.0); Hemoglobin 8.1 g/dl (12.0-16.0); Imm Gran Abs Auto 0.05 X10*3/uL (0.00-0.03); Imm Gran Pct Auto 0.5 % (0.0-0.4); Lymphocytes Absolute Auto 2.1 X10*3/uL (1.2-4.9); Mean Corpuscular HGB Conc 32.9 g/dl (31.0-35.0); Mean Corpuscular Hemoglobin 29.7 pg (27.0-33.0); Mean Corpuscular Volume 90.1 fL (80.0-98.0); NRBC Abs Auto 0.000 X10*3/uL (0.0-0.012); NRBC Pct Auto 0.0 /100WBC (0.0-0.2); Platelet Count 241 X10*3/uL (160-400); Red Blood Count 2.73 X10*6/uL (4.20-5.50); White Blood Count 9.8 X10*3/uL (4.8-10.8)
[2025-02-28 21:27] LABS: INTERNATIONAL NORM RATIO 1.7 (0.9-1.1); Prothrombin Time 19.5 SEC (10.9-12.4)
--- NOTE | 2025-02-28 21:52 | PC.NURSE ---
assumed care of pt. Provider Nichole at bedside. Assisted in vaginal ad rectal exam. Erwin placed, pt tolerated well. Pt medicated per mar. Pt states she will try and get some sleep.
[2025-02-28 22:09] LABS: Appearance Urine Clear; Glucose Urine UA Negative (Negative); PH 6.0 (5.0-9.0); Specific Gravity - Urine >= 1.030 (1.005-1.025); UMIC TRIGGER UACC YES
--- NOTE | 2025-02-28 22:11 | PM.IMHP ---
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 HIDA scan was negative for any definitive cholecystitis at that time. Patient was followed by General surgery. Patient was treated for gastroenteritis, hypo magnesium and hypokalemia. Patient originally had subtotal colectomy and hernia repair at [facility] on 01/07/2025. Ileostomy bag resulted. And patient was eventually discharged back home. Patient returned to the [facility] mid January and was admitted to the ICU as she developed pulmonary edema with pericardial effusion, anemia and new onset a flutter with intra-abdominal abscess and bacteremia. At that time patient was transferred to [facility]. Patient's abscess was treated conservatively. Patient eventually return home after rehab in [facility] 02/17/2025. Patient returned to the ED at [facility] on 02/18 for abdominal pain and was admitted and then discharged as above on 02/27. Workup in the emergency department today revealed stable pelvic abscesses and nearly resolved subcutaneous anterior pelvic wall abscess. In addition no evidence of obstruction noting pelvic wall hernias. Acute cholecystitis noted on CT scan. Resolving pancreatitis also indicated. Cirrhosis of the liver present. Patient has increased small right pleural effusion with a trace pericardial effusion. Patient had been taking colchicine for the pericardial effusion. Also noted high density material within the urinary bladder which could indicate posterior hemorrhage. H&H stable currently at 8.1 and 24.6 with a normal platelet count. Eliquis has been held. Patient will not receive Lovenox. Patient's potassium 2.8. Patient will only agree to IV potassium. A central line was placed in the right subclavian 18:00 on 02/28/2025 in the emergency department. Patient has poor vascular access at this time. Blood cultures x2 were collected. Patient was started on Zosyn. IV fluids with dextrose initiated as patient's blood sugar hovering around 90 and patient's p.o. intake has been very poor over the last 3-5 days. Lactic acid 0.7. There is resolving leukocytosis. Patient denies any fever, chills, chest pain, nausea or vomiting. Patient is on room air not experience any shortness of breath with no evidence of hypoxia. Magnesium low at 1.5 and patient received 2 g of magnesium in the ED. lipase 142. Patient does not meet criteria for sepsis at this time. This case was reviewed with General surgery and Urology by emergency room provider and both felt patient could be admitted at [facility] directly to receive care. General surgery will see patient in the a.m.. Urology requesting bladder irrigation as the UA notes hematuria. In addition we will consult GI noting rectal bleeding considering the rectum is closed off due to history of colectomy. Will also consult sorting and folding supervisor for continued vaginal spotting and bleeding secondary to fibroid tumors. Pain management effective with Dilaudid. Regimens reviewed with patient and will order 1 mg q.3 for severe pain p.r.n. and 0.5 mg q.3 for moderate pain. Med rec is currently pending. Reviewed advanced directives inpatient states she is a full code. Review of Systems Review of Systems: Patient denies any current chest pain or shortness of breath at rest. Patient is not having any abdominal pain at this time after receiving Dilaudid. Patient is denying any nausea or vomiting at this time. Patient understands that she currently NPO. Patient states she has been independent with her ileostomy care. Patient does report an episode of rectal bleeding of bright red blood that patient considered a large amount prior to coming into the ED. in addition patient continues to have vaginal spotting on a daily basis status post recent workup for endometriosis/endometrial cancer and fibroids. Patient states appetite has been poor. Patient believes she has lost at least 15 lb over the last 2 months. Patient reports severe weakness and was in rhebilitation in [place] recently. Yes all other systems are reviewed and are negative [facility] Medical History (Updated 02/28/25 @ 23:22 by ADE Boss) Pancreatitis Insomnia Bilateral knee pain Polyarthralgia MARKIE (acute kidney injury) Back pain Arthritis History of transfusion of packed red blood cells Anemia Cardiomyopathy MARKIE (acute kidney injury) MARKIE (acute kidney injury) Anxiety Small bowel obstruction Myocardial infarction NSTEMI (non-ST elevated myocardial infarction) NSVT (nonsustained ventricular tachycardia) PVC (premature ventricular contraction) Hypertension Perforated diverticulum Irritable bowel syndrome with constipation Barretts esophagus GERD (gastroesophageal reflux disease) Cognitive capacity: Alert and orientated x3 Functional capacity: wheelchair bound Patient : No Family History Father Colon cancer Congestive heart failure Paternal Aunt Colon cancer Mother Congestive heart failure Afib Surgical History S/P colon resection PIC line (peripherally inserted central catheter) removal History of low anterior resection of rectum Status post cardiac catheterization Ileostomy in place H/O dilation and curettage History of exploratory laparotomy (05/11/23) S/P colostomy Colovesical fistula History of esophagogastroduodenoscopy (EGD) Hx of colonoscopy Social History Household Members: None Housing: House Are you a primary health care attorney to a significant other at home: No Do you presently have visiting nurse or other home services: Yes ([facility]) Alcohol intake: never Comment: located near nursing station Patient Tobacco Use Status: Former Tobacco user Tobacco use type: Cigarette Cigarette Packs Per Day: 0.5 Cigarettes Per Day: 10.0 Years Smoked: 25 Smoked in Last 30 Days: No e-Cigarette/Vaping Use: Former Use Second Hand Smoke Exposure: No Use of substances other than those prescribed or required for medical reasons: No Substance Use Type: Marijuana Advance Directives: Yes Advance Directives on File: Yes Advance Directives Date on File: 12/29/23 Do you have a plan to hurt others: No Plan Patient : No service: No Cognitive needs: No Hearing needs: No Vision needs: Yes Meds Allergies Allergy/AdvReac Type Severity Reaction Status Date / Time clams Allergy Severe Stomach Verified 02/28/25 11:41 Upset clavulanic acid (Augmentin) Allergy Unknown GI, Verified 02/28/25 11:41 Difficulty breathing codeine (CODEINE) Allergy Unknown SENSITIVIT Verified 02/28/25 11:41 Y erythromycin base Allergy Unknown GI, DIFF Verified 02/28/25 11:41 (Erythromycin Base) BREATHING Sulfa (Sulfonamide Allergy Unknown RASH Verified 02/28/25 11:41 Antibiotics) morphine (MORPHINE) AdvReac Severe Difficulty Verified 02/28/25 11:41 Breathing aspirin (Aspirin) AdvReac Mild STOMACH Verified 02/28/25 11:41 UPSET melatonin AdvReac Vomiting Verified 02/28/25 11:41 Active Medications: Current Medications Acetaminophen (Acetaminophen 325 Mg Tablet) 650 mg PO Q6H PRN PRN Reason: Pain, Mild 1-3,fever,headache Albuterol/Ipratropium (Albuterol/Iprat 2.5/0.5mg 3 Ml Ampul.Neb) 3 ml INHALE Q4H PRN PRN Reason: Shortness of Breath/Wheezing Calcium Carbonate (Calcium Carbonate 750 Mg Tab.Chew) 750 mg PO Q4H PRN PRN Reason: Heartburn Hydromorphone HCl (Hydromorphone Hcl 1 Mg/Ml Syringe) 1 mg IVPUSH Q4H PRN; Protocol PRN Reason: Pain, Severe (Pain Scale 7-10) Hydromorphone HCl (Hydromorphone Hcl 0.5 Mg/0.5 Ml Syringe) 0.5 mg IVPUSH Q3H PRN; Protocol PRN Reason: Pain, Moderate(Pain Scale 4-6) Piperacillin Sod/Tazobactam (Sod 4.5 gm/ Sodium Chloride) 100 mls @ 200 mls/hr IV Q6H [facility] Magnesium Hydroxide (Milk Of Magnesia 30 Ml Oral.Susp) 30 ml PO DAILY PRN PRN Reason: Constipation Melatonin (Melatonin 3 Mg Tablet) 6 mg PO BEDTIME PRN PRN Reason: Insomnia Ondansetron HCl (Ondansetron Hcl 4 Mg/2 Ml Vial) 4 mg IVPUSH Q8H PRN PRN Reason: Nausea and Vomiting Sodium Chloride (0.9 % Sodium Chloride Flush 3 Ml Syringe) 3 ml IVFLUSH QSHIFT [facility] Home Medications ?Medication ?Instructions ?Recorded ?Confirmed ?Last Taken ?Type mirtazapine 15 mg tablet 15 mg PO BEDTIME 11/30/23 02/19/25 03/19/24 09:00 History multivitamin with minerals-folic 1 tab PO DAILY 01/07/24 02/19/25 02/18/25 History acid 200 mcg chewable tablet (Multivitamin Gummies) carisoprodol 350 mg tablet 350 mg PO BEDTIME 03/19/24 02/19/25 03/19/24 09:00 History magnesium glycinate 400 mg PO DAILY 03/19/24 02/19/25 02/18/25 History ondansetron 4 mg disintegrating 4 mg PO Q8H PRN Nausea And Vomiting 01/15/25 02/19/25 02/18/25 History tablet amiodarone 200 mg tablet 200 mg PO DAILY 02/19/25 02/19/25 02/18/25 History apixaban 5 mg tablet (Eliquis) 5 mg PO BID 02/19/25 02/19/25 02/18/25 History colchicine 0.6 mg tablet 0.6 mg PO DAILY 02/19/25 02/19/25 02/18/25 History esomeprazole magnesium 20 mg 20 mg PO DAILY@0630 02/19/25 02/19/25 02/18/25 History capsule,delayed release (Nexium) gabapentin 100 mg capsule 100 mg PO Q8H 02/19/25 02/19/25 02/18/25 History Physical Exam Vital Signs and Narrative: Vital Signs: Last Vital Signs Temp 98.4 F 02/28/25 19:24 Pulse 77 02/28/25 19:24 Resp 17 02/28/25 19:24 BP 112/72 02/28/25 20:41 Pulse Ox 96 02/28/25 19:24 O2 Del Method Room Air 02/28/25 19:24 BMI result Body Mass Index 25.6 Alert and orientated X3, able to give good history. Neuro: CN II-X11 intact, no deficits, visual acuity intact EYES: PERRLA, EOM intact, sclerae nonicteric, conjunctiva pale ENT: Mildly hard of hearing, no issues with swallowing, uvula midline, lips moist, nares patent no epistaxis Cardiac: S1 S2 RRR, no murmur, no JVD, no edema in Lower ext Pulmonary: lungs diminished bilaterally Abdominal: Ileostomy right mid quadrant draining brown liquid stool, bruising and healing incisions noted, no hernia appreciated, bowel sounds present, no guarding or tenderness on exam MSK: strength 2-3/5 upper and lower extremities : no CVA tenderness no bladder distension ricky wick is in place Extremities: no edema in lower extremities, PT and DP pulses palpable +2 Psych: mood stable, judgement and insight good Skin: unable to review backside, central line R SC placed 02/28/2025, abdominal bruising in healing stages, incisions in healing stages Results Labs 02/28/25 21:16 02/28/25 12:50 Labs: Laboratory Results - last 24 hr 02/28/25 02/28/25 02/28/25 12:50 19:47 21:16 MCV 92.1 90.1 MCH 29.3 29.7 MCHC 31.8 32.9 RDW 15.6 15.7 Plt Count 273 241 MPV 9.4 9.5 Immature Gran % (Auto) 0.4 0.5 H Neut % (Auto) 73.1 H 64.3 Lymph % (Auto) 14.6 L 21.8 Treasure % (Auto) 9.3 9.6 Eos % (Auto) 1.8 3.1 Baso % (Auto) 0.8 0.7 Lymph # (Auto) 1.8 2.1 Treasure # (Auto) 1.1 0.9 Eos # (Auto) 0.2 0.3 Baso # (Auto) 0.1 0.1 Abs Immat Gran (auto) 0.05 H 0.05 H Absolute Neuts (auto) 8.8 H 6.3 Absolute Nucleated RBC 0.000 0.000 Nucleated RBC % (auto) 0.0 0.0 PT 19.5 H D INR 1.7 H Anion Gap 13 Estim Creat Clear Calc 73.4 Estimated GFR > 60 Random Glucose 90 Lactic Acid 0.7 Calcium 8.1 L D Magnesium 1.5 L Total Bilirubin 0.4 AST 46 H ALT < 6 Alkaline Phosphatase 156 H Troponin I High Sens 2.7 D Total Protein 7.7 Albumin 2.6 L Lipase 142 H Blood Type O Positive Antibody Screen NEGATIVE ECG Attestation: I personally reviewed and interpreted this ECG as follows: (Sinus tachycardia with PVCs QTC prolonged at 550 ) Prior ECG tracings: available for review Imaging Radiologist's Impressions: CT ABD IMPRESSION: 1. Stable pelvic abscesses. 2. Nearly resolved subcutaneous anterior pelvic wall abscess. 3. Stable bowel containing pelvic wall hernias with no evidence of associated obstruction. 4. Findings which would be consistent with acute cholecystitis in the appropriate clinical setting. This could be further assessed with ultrasound, if clinically indicated. 5. Resolving pancreatitis. 6. Cirrhosis. 7. Increased, small right pleural effusion. Stable trace pericardial effusion. 8. New small amount of high density material within the urinary bladder which may indicate posterior hemorrhage. Correlation with urinalysis is recommended. CXR Findings: The tip of a right side IJ is overlying the right atrium. No consolidation or effusion. Normal size heart. No acute fracture. IMPRESSION: Tip of right IJ overlying the right atrium. 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 Acute cholecystitis -General Sugery consulted -HIDA scan requested (previosu scan neg for acute cholecystits) -NPO -IVF ordered -Lactic acid WNL, leukocytosis resolving -BC X2 pending -pt can't have zofran, reglan, compazine due to prolong Qtc - may need to use valium -Dilaudid for pain management -Pt is on Zosyn Hypokalemia -K replacement via IV only as pt has Central line R SC placed 02/28/2025 -Next K 0100 -Telemetry -Note prolonged Qtc, goal K > 4.0 Hypomagnesemia -MG 1.5 -2GMS in ED -Will check in AM -Telemetry -Note prolonged QtC goal MG > 2.0 Anemia -Evidence of vaginal and rectal blood loss -H&H currently 8.1/ 24.6 -Next H&H 0 100 -Type and screen ordered, no plans for transfusion at this time -Iron panel pending Resolving pancreatitis -Noted on CT of the abdomen today -Lipase 142 -Repeat in the a.m. -IV fluids continue Abnormal vaginal bleeding secondary to possible fibroids -Maintenance Groundskeeper consulted -Monitoring H&H S/P intra-abdominal abscess/ [place] [facility] status post colectomy with current ileostomy -Colostomy care ordered -Via CT scan abscesses are currently stable -Continue Zosyn -Pain management with Dilaudid -General surgery on board, no need to transfer [place] [facility] [place] HX of colovesical fistula -Repaired with no obvious evidence of reoccurrence Cirrhosis of the liver -LFTs stable -No history of EtOH use -Monitor CMP A flutter/ Afib -Patient currently normal sinus rhythm, occasional PVCs -Magnesium and potassium are being replaced -Continue amiodarone once med rec completed -Blood pressure borderline we will hold Coreg for now -Eliquis held secondary to vaginal/rectal bleeding and acute cholecystitis/ ? Surgical intervention -Telemetry Prolonged Qtc (HX) current Qtc 550 -Magnesium 1.5, replacement ordered -Patient reports chronic history of prolonged QT -Patient is not on any SSRIs but is on amiodorone -Goal MG >2, K > 4.0 -Discontinued Zofran and patient can not have Reglan or Compazine at this time - may need to consider Valium for nausea -Repeat EKG in the a.m. DVT prophylaxis: Held due to vaginal/rectal bleeding and possible need for procedure PPI prophylaxis: Protonix Med rec pending Full Code status Quality Stroke Does the patient have a stroke diagnosis?: No Reason for No Anti-thrombotic by Day Two: Contraindicated VTE Prior VTE?: No VTE Risk Level:: Surgical - high VTE Device Contraindication: N/A - Device Ordered VTE Drug Contraindication: Treatment Not Indicated
[2025-03-01] VITALS (9 sets, daily range): BP systolic 92–119; BP diastolic 51–61; PULSE 85–99; RESP 11–18; TEMP 36.1–36.9; O2SAT 94–98
--- NOTE | 2025-03-01 00:52 | PC.NURSE ---
Addendum entered by Marissa Brunner 03/01/25 01:59: correction- stop irrigation @ 0200 Original Note: late entry- this rn placed perez catheter per flora immediate output of 400ml per admitting provider start pt on continuous bladder irrigation. perez removed, three way catheter placed discussed plan with jean-pierre flora plan as urine is running clear post 3way placement. per flora if continued clear urine stop irrigation @ 0100. battery charger tester made aware
[2025-03-01 01:17] LABS: Hematocrit 24.1 % (37.0-47.0); Hemoglobin 7.7 g/dl (12.0-16.0)
[2025-03-01 01:30] LABS: Potassium 3.1 mmol/L (3.3-5.1)
--- NOTE | 2025-03-01 03:44 | PC.NURSE ---
Addendum entered by Marissa Brunner 03/01/25 04:17: upon removal of 3way 2200ml intake and out put noted by irigation. pt tolerated well. pt refused periwick, wants to use commode Original Note: 3 lumen irrigation catheter removed pe provider. Pt will advise when she needs to use the commode.
[2025-03-01 04:05] LABS: MANUAL DIFF FLAG NO
[2025-03-01 04:06] LABS: Hematocrit 23.3 % (37.0-47.0); Hemoglobin 7.6 g/dl (12.0-16.0); Imm Gran Abs Auto 0.03 X10*3/uL (0.00-0.03); Imm Gran Pct Auto 0.3 % (0.0-0.4); Lymphocytes Absolute Auto 1.8 X10*3/uL (1.2-4.9); Mean Corpuscular HGB Conc 32.6 g/dl (31.0-35.0); Mean Corpuscular Hemoglobin 29.3 pg (27.0-33.0); Mean Corpuscular Volume 90.0 fL (80.0-98.0); NRBC Abs Auto 0.000 X10*3/uL (0.0-0.012); NRBC Pct Auto 0.0 /100WBC (0.0-0.2); Platelet Count 208 X10*3/uL (160-400); Red Blood Count 2.59 X10*6/uL (4.20-5.50); White Blood Count 10.0 X10*3/uL (4.8-10.8)
[2025-03-01 04:30] LABS: Alanine Aminotransferase < 6 U/L (0-31); Albumin Level 2.1 g/dL (3.5-5.0); Alkaline Phosphatase 125 U/L (39-117); Anion Gap 12 (12-20); Aspartate Amino Transferase 38 U/L (5-31); Blood Urea Nitrogen 7 mg/dL (9-16); Calcium 7.4 mg/dL (8.4-10.2); Carbon Dioxide 25 mmol/L (22-29); Chloride 102 mmol/L (96-108); Creatinine Clr Calc Pharmacy 85.0; Estimated Glomerular Filt Rate > 60; Lipase 96 U/L (8-78); Magnesium 1.5 mg/dL (1.6-2.6); Potassium 3.0 mmol/L (3.3-5.1); Sodium 136 mmol/L (135-145); Total Protein 6.4 g/dL (6.5-8.0); Uric Acid 4.2 mg/dL (2.4-5.7)
[2025-03-01 04:31] LABS: B Type Natriuretic Peptide 211 pg/mL (<100)
--- NOTE | 2025-03-01 05:50 | P.EN_ITS ---
Event Note Date of Service: 03/01/25 Event Note: Patient in the process of transferring from the ED to the 4th floor. Preliminary a.m. labs were reviewed. Potassium still low at 3.0 and magnesium still low at 1.5. Patient does have a central line and potassium orders placed are 20 mEq IV via central line x2. Magnesium 2 g x 1 also ordered. This property underwriter did call the 4th floor to ensure that the order for potassium 20 mEq IV x2 via central line is permissible and they stated that there should be no problem. In addition patient's bladder irrigation was stopped at 02:00 as the production remained clear. Patient did not want to maintain Erwin catheter. Urology will be seeing patient in the a.m.. H&H currently 7.6 and 23.3. No indication for transfusion at this time. Hemodynamics remained stable. Pain is well controlled with Dilaudid. Time Spent With Patient Time: Total time managing care of this patient today ____ minutes.
[2025-03-01] MEDS: Magnesium Sulfate/H2O 2 GM/50 ML PIGGYBACK IV (06:18)
--- NOTE | 2025-03-01 06:37 | PC.NURSE ---
Pharmacy called and will bring up 2 bags IV potassium, not available on this unit.
--- NOTE | 2025-03-01 06:54 | P.CONOB_ITS ---
CONSULTING HR PROFESSIONAL - CN: HPI Data of Consult Consult date: 03/01/25 Requesting Physician: Noa Garcias MD Primary Care Provider: Joi Rebollar MD Consult Narrative Narrative: I was contacted at 06:36 via title connect on [facility]hel[facility] for a consult, the patient is a 65 year old female with the following complex recent med/surgical hx: -01/07/26 Patient originally had subtotal colectomy and hernia repair with Ileostomy bag resulted @ [facility]. -Mid January the patient returned to the [facility] mid January and was admitted to the ICU with pulmonary edema, pericardial effusion, anemia , new onset a flutter, intra-abdominal abscess and bacteremia. -At that time the patient was transferred to [facility]. Patient's abscess was treated conservatively. Patient eventually return home after rehab in [facility]? -02/17/2025. Patient returned to the ED at [facility] on 02/18 for abdominal pain and was admitted and then discharged on 02/27. 02/28 Workup in the emergency department today revealed the following: - stable pelvic abscesses - nearly resolved subcutaneous anterior pelvic wall abscess. -In addition no evidence of obstruction noting pelvic wall hernias. -Acute cholecystitis noted on CT scan. -Resolving pancreatitis also indicated. Cirrhosis of the liver present. Patient has increased small right pleural effusion with a trace pericardial effusion. -Also noted high density material within the urinary bladder which could indicate posterior hemorrhage. H&H in the ER at 8.1 and 24.6 with a normal platelet count. Eliquis has been held. The patient is having vaginal bleeding with history of uterine myomas in a recent negative endometrial biopsy according to patient, no records available H&H @ 3:58 am 7.6/23.3 Last cotesting cc:: CC: Noa Garcias MD OB [facility] Past Medical History Medical History (Updated 03/01/25 @ 09:17 by Terrell Hillman MD) Pancreatitis Insomnia Bilateral knee pain Polyarthralgia MARKIE (acute kidney injury) Back pain Arthritis History of transfusion of packed red blood cells Anemia Cardiomyopathy MARKIE (acute kidney injury) MARKIE (acute kidney injury) Anxiety Small bowel obstruction Myocardial infarction NSTEMI (non-ST elevated myocardial infarction) NSVT (nonsustained ventricular tachycardia) PVC (premature ventricular contraction) Hypertension Perforated diverticulum Irritable bowel syndrome with constipation Barretts esophagus GERD (gastroesophageal reflux disease) Functional capacity: wheelchair bound Family History Family History Father Colon cancer Congestive heart failure Paternal Aunt Colon cancer Mother Congestive heart failure Afib Surgical History Surgical History S/P colon resection PIC line (peripherally inserted central catheter) removal History of low anterior resection of rectum Status post cardiac catheterization Ileostomy in place H/O dilation and curettage History of exploratory laparotomy (05/11/23) S/P colostomy Colovesical fistula History of esophagogastroduodenoscopy (EGD) Hx of colonoscopy Social History Social History Household Members: None Housing: House Are you a primary career services officer to a significant other at home: No Do you presently have visiting nurse or other home services: Yes ([facility] on hold) Alcohol intake: never Comment: located near nursing station Patient Tobacco Use Status: Former Tobacco user Tobacco use type: Cigarette Cigarette Packs Per Day: 0.5 Cigarettes Per Day: 10.0 Years Smoked: 25 e-Cigarette/Vaping Use: Former Use Second Hand Smoke Exposure: No Substance Use Type: Marijuana Advance Directives Date on File: 12/29/23 service: No Cognitive needs: No Hearing needs: No Vision needs: Yes Meds Allergies Allergy/AdvReac Type Severity Reaction Status Date / Time clams Allergy Severe Stomach Verified 02/28/25 11:41 Upset clavulanic acid (Augmentin) Allergy Unknown GI, Verified 02/28/25 11:41 Difficulty breathing codeine (CODEINE) Allergy Unknown SENSITIVIT Verified 02/28/25 11:41 Y erythromycin base Allergy Unknown GI, DIFF Verified 02/28/25 11:41 (Erythromycin Base) BREATHING Sulfa (Sulfonamide Allergy Unknown RASH Verified 02/28/25 11:41 Antibiotics) morphine (MORPHINE) AdvReac Severe Difficulty Verified 02/28/25 11:41 Breathing aspirin (Aspirin) AdvReac Mild STOMACH Verified 02/28/25 11:41 UPSET melatonin AdvReac Vomiting Verified 02/28/25 11:41 Active Medications: Current Medications Acetaminophen (Acetaminophen 325 Mg Tablet) 650 mg PO Q6H PRN PRN Reason: Pain, Mild 1-3,fever,headache Albuterol/Ipratropium (Albuterol/Iprat 2.5/0.5mg 3 Ml Ampul.Neb) 3 ml INHALE Q4H PRN PRN Reason: Shortness of Breath/Wheezing Calcium Carbonate (Calcium Carbonate 750 Mg Tab.Chew) 750 mg PO Q4H PRN PRN Reason: Heartburn Carisoprodol (Carisoprodol 350 Mg Tablet) 350 mg PO BEDTIME [facility] Last Admin: 03/01/25 01:11 Dose: 350 mg Gabapentin (Gabapentin 100 Mg Capsule) 100 mg PO TID [facility] Hydromorphone HCl (Hydromorphone Hcl 1 Mg/Ml Syringe) 1 mg IVPUSH Q4H PRN; Protocol PRN Reason: Pain, Severe (Pain Scale 7-10) Hydromorphone HCl (Hydromorphone Hcl 0.5 Mg/0.5 Ml Syringe) 0.5 mg IVPUSH Q3H PRN; Protocol PRN Reason: Pain, Moderate(Pain Scale 4-6) Piperacillin Sod/Tazobactam (Sod 4.5 gm/ Sodium Chloride) 100 mls @ 200 mls/hr IV Q6H [facility] Last Infusion: 03/01/25 04:57 Dose: Infused Dextrose/Sodium Chloride (D5ns) 1,000 mls @ 100 mls/hr IVCONT .Q10H [facility] Last Admin: 02/28/25 22:59 Dose: 100 mls/hr Magnesium Sulfate (Magnesium Sulfate/H2o) 2 gm in 50 mls @ 25 mls/hr IV ONCE ONE Stop: 03/01/25 07:39 Last Admin: 03/01/25 06:18 Dose: 25 mls/hr Potassium Chloride (Potassium Chloride/H20) 20 meq in 100 mls @ 100 mls/hr IV Q1H [facility] Stop: 03/01/25 07:44 Magnesium Hydroxide (Milk Of Magnesia 30 Ml Oral.Susp) 30 ml PO DAILY PRN PRN Reason: Constipation Melatonin (Melatonin 3 Mg Tablet) 6 mg PO BEDTIME PRN PRN Reason: Insomnia Mirtazapine (Mirtazapine 15 Mg Tablet) 15 mg PO BEDTIME [facility] Last Admin: 03/01/25 01:11 Dose: 15 mg Pantoprazole Sodium (Pantoprazole Sodium 40 Mg/10 Ml Vial) 40 mg IVPUSH BID@0630,1630 [facility] Last Admin: 03/01/25 06:20 Dose: 40 mg Sodium Chloride (0.9 % Sodium Chloride Flush 3 Ml Syringe) 3 ml IVFLUSH QSHIFT [facility] Last Admin: 03/01/25 01:12 Dose: Not Given Home Medications ?Medication ?Instructions ?Recorded ?Confirmed ?Last Taken ?Type mirtazapine 15 mg tablet 15 mg PO BEDTIME 11/30/2303/19/24 09:00 History multivitamin with minerals-folic 1 tab PO DAILY 03/01/25 02/18/25 History acid 200 mcg chewable tablet (Multivitamin Gummies) carisoprodol 350 mg tablet 350 mg PO BEDTIME 03/19/24 03/01/25 03/19/24 09:00 History magnesium glycinate 400 mg PO DAILY 03/19/2402/18/25 History ondansetron 4 mg disintegrating 4 mg PO Q8H PRN Nausea And Vomiting 01/15/25 03/01/25 02/18/25 History tablet amiodarone 200 mg tablet 200 mg PO DAILY 02/19/2502/18/25 History apixaban 5 mg tablet (Eliquis) 5 mg PO BID 02/19/2502/18/25 History colchicine 0.6 mg tablet 0.6 mg PO DAILY 02/19/2502/18/25 History esomeprazole magnesium 20 mg 20 mg PO DAILY@0630 02/1903/01/25 02/18/25 History capsule,delayed release (Nexium) gabapentin 100 mg capsule 100 mg PO Q8H 02/19/2503/0102/18/25 History CONSULTING HR PROFESSIONAL Physical Exam Vitals Vital signs: Temp Pulse Resp BP Pulse Ox O2 Del Method 97.8 F 94 18 109/57 L 98 Room Air 03/01/25 06:22 03/01/25 06:22 03/01/25 06:22 03/01/25 06:22 03/01/25 06:22 03/01/25 06:22 BMI result Body Mass Index 25.6 CONSULTING HR PROFESSIONAL - Results Labs 03/01/25 03:58 03/01/25 03:58 Labs: Short CBC 02/28/25 02/28/25 03/01/25 Range/Units 12:50 21:16 01:14 WBC 12.1 H 9.8 (4.8-10.8) X10*3/uL Hgb 8.9 L 8.1 L 7.7 L (12.0-16.0) g/dl Hct 28.0 L 24.6 L 24.1 L (37.0-47.0) % Plt Count 273 241 (160-400) X10*3/uL 03/01/25 Range/Units 03:58 WBC 10.0 (4.8-10.8) X10*3/uL Hgb 7.6 L (12.0-16.0) g/dl Hct 23.3 L (37.0-47.0) % Plt Count 208 (160-400) X10*3/uL BMP 02/28/25 03/01/25 03/01/25 12:50 01:14 03:58 Sodium 134 L 136 Potassium 2.8 L* 3.1 L 3.0 L Chloride 96 102 Carbon Dioxide 28 25 BUN 10 7 L Creatinine 0.66 0.57 Calcium 8.1 L D 7.4 L D Liver Function 02/28/25 03/01/25 Range/Units 12:50 03:58 Total Bilirubin 0.4 0.3 (0.0-1.0) mg/dL AST 46 H 38 H (5-31) U/L ALT < 6 < 6 (0-31) U/L Alkaline Phosphatase 156 H 125 H (39-117) U/L Albumin 2.6 L 2.1 L (3.5-5.0) g/dL Urine 02/28/25 Range/Units 21:50 Urine Color Yellow Urine Appearance Clear Urine pH 6.0 (5.0-9.0) Ur Specific Dorothy >= 1.030 H (1.005-1.025) Urine Protein 30 (1+) H (Neg-Trace) mg/dL Urine Glucose (UA) Negative (Negative) mg/dL Antibody Screen Antibody Screen NEGATIVE 02/28/25 19:47 Assessment and Plan (1) Postmenopausal bleeding: Status: Acute Discussed with the patient the differential diagnosis of post menopausal bleeding including but not limited to, endometrial hyperplasia, cancer, polyps , myosarcoma and other causes; recommended pelvic ultrasound to measure the endometrial stripe; and possible endometrial sampling depending on the ultrasound findings. Pelvic ultrasound ordered. All questions answered, the patient verbalized understanding and agreed with the plan. This note was generated with a voice recognition program. Some errors may have been overlooked during the review of this note. Sometimes these errors may affect the content or meaning of a given sentence. (2) Uterine myoma: Status: Acute Discussed with the patient the findings of uterine myoma & the risk of myosarcoma; in addition reviewed with the patient that malignancy and pre malignancy cannot be ruled out without hysterectomy for pathological evaluation ; furthermore, explained to the patient the limitation of pelvic ultrasound and endometrial biopsy in the setting. In addition discussed with the patient options of treatment for myomas including: Expectant management with serial pelvic ultrasound versus surgical treatment including hysterectomy BSO All pros and cons, risks and benefits of all options were discussed with the patient. (3) Anemia: Status: Acute Recommended 2 unit of packed RBCs transfusion , will defer the management of anemia all the other medical complex history to the hospitalist team
[2025-03-01] MEDS: Potassium Chloride/H20 20 MEQ/100 ML PIGGYBACK 100 MEQ IV ×2 (07:32→08:44)
[2025-03-01] MEDS: 0.9 % Sodium Chloride Flush 3 ML SYRINGE IVFLUSH ×3 (07:39→21:19)
--- NOTE | 2025-03-01 08:00 | ECG_ITS ---
Test Reason : prolonged Qtc Blood Pressure : */* mmHG Vent. Rate : 100 BPM Atrial Rate : 100 BPM P-R Int : 158 ms QRS Dur : 66 ms QT Int : 396 ms P-R-T Axes : 101 45 104 degrees QTcB Int : 510 ms Normal sinus rhythm Low voltage QRS Nonspecific ST and T wave abnormality Abnormal ECG When compared with ECG of 28-Feb-2025 12:19, due to artifact, cannot compare Referred By: Aileen Hurst Electronically Signed By: TERELL PATEL
--- NOTE | 2025-03-01 08:19 | PHA.MEDREC ---
Addendum entered by Margot Gregorio RPh 03/01/25 08:48: Reviewed by [facility] Original Note: Pharmacy Consult ? Medication Reconciliation Pharmacy has completed the medication reconciliation. Spoke with patient to confirm. She was discharged from here yesterday and no changes were made to her medications.
--- NOTE | 2025-03-01 13:57 | PM.CNGS ---
History of Present Illness Consult details Consult date: 03/02/25 Narrative: Patient is a 65-year-old female who is well known to us for complicated surgical history significant for subtotal colectomy and end ileostomy who has had issues with the abdominal abscesses which are now improved but then recurrent episodes of pancreatitis. She was recently discharged and now comes back in again not feeling well from most likely pancreatitis. CT scan shows improvement in her intra-abdominal fluid collections but still with some peripancreatic changes and elevated lipase. Patient says she feels like this is her pancreatitis. In addition she has been a little anemic and has said that she has been passing a little blood but unsure if it is vaginal or from the rectum. Technically she has a rectal stump. Patient wants to see Dr. Velásquez for this on Monday medical team is managing her and we will follow along. As of now no surgical issues and in fact her abdominal issues are much improved PMF Past Medical History Medical History (Updated 03/02/25 @ 21:45 by Daphne Dorantes MD) Pancreatitis Insomnia Bilateral knee pain Polyarthralgia MARKIE (acute kidney injury) Back pain Arthritis History of transfusion of packed red blood cells Anemia Cardiomyopathy MARKIE (acute kidney injury) MARKIE (acute kidney injury) Anxiety Small bowel obstruction Myocardial infarction NSTEMI (non-ST elevated myocardial infarction) NSVT (nonsustained ventricular tachycardia) PVC (premature ventricular contraction) Hypertension Perforated diverticulum Irritable bowel syndrome with constipation Barretts esophagus GERD (gastroesophageal reflux disease) Family History Family History Father Colon cancer Congestive heart failure Paternal Aunt Colon cancer Mother Congestive heart failure Afib Surgical History Surgical History S/P colon resection PIC line (peripherally inserted central catheter) removal History of low anterior resection of rectum Status post cardiac catheterization Ileostomy in place H/O dilation and curettage History of exploratory laparotomy (05/11/23) S/P colostomy Colovesical fistula History of esophagogastroduodenoscopy (EGD) Hx of colonoscopy Social History Social History Household Members: None Housing: House Are you a primary critical care educator to a significant other at home: No Do you presently have visiting nurse or other home services: Yes ([facility] on hold) Alcohol intake: never Comment: located near nursing station Patient Tobacco Use Status: Former Tobacco user Tobacco use type: Cigarette Cigarette Packs Per Day: 0.5 Cigarettes Per Day: 10.0 Years Smoked: 25 e-Cigarette/Vaping Use: Former Use Second Hand Smoke Exposure: No Substance Use Type: Marijuana Advance Directives Date on File: 12/29/23 service: No Cognitive needs: No Hearing needs: No Vision needs: Yes Meds Allergies Allergy/AdvReac Type Severity Reaction Status Date / Time clams Allergy Severe Stomach Verified 02/28/25 11:41 Upset clavulanic acid (Augmentin) Allergy Unknown GI, Verified 02/28/25 11:41 Difficulty breathing codeine (CODEINE) Allergy Unknown SENSITIVIT Verified 02/28/25 11:41 Y erythromycin base Allergy Unknown GI, DIFF Verified 02/28/25 11:41 (Erythromycin Base) BREATHING Sulfa (Sulfonamide Allergy Unknown RASH Verified 02/28/25 11:41 Antibiotics) morphine (MORPHINE) AdvReac Severe Difficulty Verified 02/28/25 11:41 Breathing aspirin (Aspirin) AdvReac Mild STOMACH Verified 02/28/25 11:41 UPSET melatonin AdvReac Vomiting Verified 02/28/25 11:41 Active Medications: Current Medications Acetaminophen (Acetaminophen 325 Mg Tablet) 650 mg PO Q6H PRN PRN Reason: Pain, Mild 1-3,fever,headache Albuterol/Ipratropium (Albuterol/Iprat 2.5/0.5mg 3 Ml Ampul.Neb) 3 ml INHALE Q4H PRN PRN Reason: Shortness of Breath/Wheezing Amiodarone HCl (Amiodarone Hcl 200 Mg Tablet) 200 mg PO DAILY [facility] Last Admin: 03/01/25 10:10 Dose: 200 mg Atorvastatin Calcium (Atorvastatin Calcium 20 Mg Tablet) 20 mg PO BEDTIME [facility] Calcium Carbonate (Calcium Carbonate 750 Mg Tab.Chew) 750 mg PO Q4H PRN PRN Reason: Heartburn Carisoprodol (Carisoprodol 350 Mg Tablet) 350 mg PO BEDTIME [facility] Last Admin: 03/01/25 01:11 Dose: 350 mg Carvedilol (Carvedilol 6.25 Mg Tablet) 6.25 mg PO BID [facility]; Protocol Last Admin: 03/01/25 10:02 Dose: Not Given Colchicine (Colchicine 0.6 Mg Tablet) 0.6 mg PO DAILY [facility] Last Admin: 03/01/25 10:10 Dose: 0.6 mg Gabapentin (Gabapentin 100 Mg Capsule) 100 mg PO TID [facility] Last Admin: 03/01/25 08:03 Dose: 100 mg Hydromorphone HCl (Hydromorphone Hcl 1 Mg/Ml Syringe) 1 mg IVPUSH Q4H PRN; Protocol PRN Reason: Pain, Severe (Pain Scale 7-10) Last Admin: 03/01/25 13:21 Dose: 1 mg Hydromorphone HCl (Hydromorphone Hcl 0.5 Mg/0.5 Ml Syringe) 0.5 mg IVPUSH Q3H PRN; Protocol PRN Reason: Pain, Moderate(Pain Scale 4-6) Piperacillin Sod/Tazobactam (Sod 4.5 gm/ Sodium Chloride) 100 mls @ 200 mls/hr IV Q6H [facility] Last Infusion: 03/01/25 10:40 Dose: Infused Dextrose/Sodium Chloride (D5ns) 1,000 mls @ 100 mls/hr IVCONT .Q10H [facility] Last Admin: 03/01/25 07:32 Dose: 100 mls/hr Magnesium Hydroxide (Milk Of Magnesia 30 Ml Oral.Susp) 30 ml PO DAILY PRN PRN Reason: Constipation Melatonin (Melatonin 3 Mg Tablet) 6 mg PO BEDTIME PRN PRN Reason: Insomnia Mirtazapine (Mirtazapine 15 Mg Tablet) 15 mg PO BEDTIME [facility] Last Admin: 03/01/25 01:11 Dose: 15 mg Multivitamins/Vitamin C (Multivitamin Tablet) 1 tab PO DAILY [facility] Last Admin: 03/01/25 10:10 Dose: 1 tab Non-Formulary Medication (Magnesium Glycinate) 400 mg PO DAILY [facility] Pantoprazole Sodium (Pantoprazole Sodium 40 Mg/10 Ml Vial) 40 mg IVPUSH BID@0630,1630 [facility] Last Admin: 03/01/25 06:20 Dose: 40 mg Sodium Chloride (0.9 % Sodium Chloride Flush 3 Ml Syringe) 3 ml IVFLUSH QSHIFT [facility] Last Admin: 03/01/25 07:39 Dose: 3 ml Home Medications ?Medication ?Instructions ?Recorded ?Confirmed ?Last Taken ?Type mirtazapine 15 mg tablet 15 mg PO BEDTIME 11/30/23 03/01/25 03/19/24 09:00 History multivitamin with minerals-folic 1 tab PO DAILY 01/07/24 03/01/25 02/18/25 History acid 200 mcg chewable tablet (Multivitamin Gummies) carisoprodol 350 mg tablet 350 mg PO BEDTIME 03/19/24 03/01/25 03/19/24 09:00 History magnesium glycinate 400 mg PO DAILY 03/19/24 03/01/25 02/18/25 History ondansetron 4 mg disintegrating 4 mg PO Q8H PRN Nausea And Vomiting 01/15/25 03/01/25 02/18/25 History tablet amiodarone 200 mg tablet 200 mg PO DAILY 02/19/25 03/01/25 02/18/25 History apixaban 5 mg tablet (Eliquis) 5 mg PO BID 02/19/25 03/01/25 02/18/25 History colchicine 0.6 mg tablet 0.6 mg PO DAILY 02/19/25 03/01/25 02/18/25 History esomeprazole magnesium 20 mg 20 mg PO DAILY@0630 02/19/25 03/01/25 02/18/25 History capsule,delayed release (Nexium) gabapentin 100 mg capsule 100 mg PO Q8H 02/19/25 03/01/25 02/18/25 History Physical Exam Vital Signs: Vital Signs: Last Vital Signs Temp 98.3 F 03/01/25 12:00 Pulse 99 03/01/25 12:00 Resp 18 03/01/25 12:00 BP 119/58 L 03/01/25 12:00 Pulse Ox 98 03/01/25 12:00 O2 Del Method Room Air 03/01/25 12:00 BMI result Body Mass Index 25.6 Const: General: cooperative and tired appearing GI: Other: Abdomen is soft tender in the epigastric right upper quadrant area ileostomy is working active bowel sounds Results Labs 03/02/25 03:45 03/02/25 03:45 Labs: Abnormal lab results 02/28/25 02/28/25 02/28/25 Range/Units 12:50 21:16 21:50 RBC 2.73 L (4.20-5.50) X10*6/uL Hgb 8.1 L (12.0-16.0) g/dl Hct 24.6 L (37.0-47.0) % MPV (9.4-12.3) fL Immature Gran % (Auto) 0.5 H (0.0-0.4) % Lymph % (Auto) (20-40) % Abs Immat Gran (auto) 0.05 H (0.00-0.03) X10*3/uL PT 19.5 H D (10.9-12.4) SEC INR 1.7 H (0.9-1.1) Potassium (3.3-5.1) mmol/L BUN (9-16) mg/dL Calcium (8.4-10.2) mg/dL Magnesium (1.6-2.6) mg/dL AST (5-31) U/L Alkaline Phosphatase (39-117) U/L B-Natriuretic Peptide (<100) pg/mL Total Protein (6.5-8.0) g/dL Albumin (3.5-5.0) g/dL Lipase 142 H (8-78) U/L Ur Specific [place] >= 1.030 H (1.005-1.025) Urine Protein 30 (1+) H (Neg-Trace) mg/dL Urine Blood Small (1+) H (Negative) Urine RBC 3-5 H (0-2) /HPF 03/01/25 03/01/25 Range/Units 01:14 03:58 RBC 2.59 L (4.20-5.50) X10*6/uL Hgb 7.7 L 7.6 L (12.0-16.0) g/dl Hct 24.1 L 23.3 L (37.0-47.0) % MPV 9.0 L (9.4-12.3) fL Immature Gran % (Auto) (0.0-0.4) % Lymph % (Auto) 18.2 L (20-40) % Abs Immat Gran (auto) (0.00-0.03) X10*3/uL PT (10.9-12.4) SEC INR (0.9-1.1) Potassium 3.1 L 3.0 L (3.3-5.1) mmol/L BUN 7 L (9-16) mg/dL Calcium 7.4 L D (8.4-10.2) mg/dL Magnesium 1.5 L (1.6-2.6) mg/dL AST 38 H (5-31) U/L Alkaline Phosphatase 125 H (39-117) U/L B-Natriuretic Peptide 211 H (<100) pg/mL Total Protein 6.4 L (6.5-8.0) g/dL Albumin 2.1 L (3.5-5.0) g/dL Lipase 96 H (8-78) U/L Ur Specific [place] (1.005-1.025) Urine Protein (Neg-Trace) mg/dL Urine Blood (Negative) Urine RBC (0-2) /HPF Short CBC 02/28/25 03/01/25 03/01/25 Range/Units 21:16 01:14 03:58 WBC 9.8 10.0 (4.8-10.8) X10*3/uL Hgb 8.1 L 7.7 L 7.6 L (12.0-16.0) g/dl Hct 24.6 L 24.1 L 23.3 L (37.0-47.0) % Plt Count 241 208 (160-400) X10*3/uL BMP 03/01/25 03/01/25 01:14 03:58 Sodium 136 Potassium 3.1 L 3.0 L Chloride 102 Carbon Dioxide 25 BUN 7 L Creatinine 0.57 Calcium 7.4 L D Liver Function 03/01/25 Range/Units 03:58 Total Bilirubin 0.3 (0.0-1.0) mg/dL AST 38 H (5-31) U/L ALT < 6 (0-31) U/L Alkaline Phosphatase 125 H (39-117) U/L Albumin 2.1 L (3.5-5.0) g/dL Urine 02/28/25 Range/Units 21:50 Urine Color Yellow Urine Appearance Clear Urine pH 6.0 (5.0-9.0) Ur Specific [place] >= 1.030 H (1.005-1.025) Urine Protein 30 (1+) H (Neg-Trace) mg/dL Urine Glucose (UA) Negative (Negative) mg/dL All other labs normal. Imaging Abdomen CT scan report/results: report reviewed and image reviewed CT scan - pelvis: report reviewed and image reviewed Additional studies: Signed Patient: Kia Phelps MR#: [id number] : 1960 Acct:[id number] Age/Sex: 65 / F ADM Date: 02/28/25 Loc: HO.ED Attending Dr: Ordering Physician: Feroz Knight PA-C Date of Service: 02/28/25 Procedure(s): CT abdomen pelvis w IV con Accession Number(s): [id number] cc: Feroz Knight PA-C; Joi Rebollar MD~ Report Number: [id number]: Total DLP = 560.00 mGy-cm CLINICAL HISTORY: abd pain, recent hernia surgery CT abdomen and pelvis with contrast Comparison: CT - CT ABDOMEN PELVIS W IV CON - 02/28/25 17:[address]/SR - CT ABDOMEN PELVIS W IV CON - 02/18/25 22:38 EDT Findings: Increased, small right pleural effusion. Trace pericardial effusion, as before. Gallbladder is contracted with mural hyperemia and thickening, with surrounding fat stranding, as before. Hepatic contour is nodular without focal mass. Decreased, mild peripancreatic fat stranding. Solid organs are otherwise within normal limits. No bowel obstruction, pneumoperitoneum, or pneumatosis. Small amount of high density material within the right posterior urinary bladder. Appendix is not seen. Right anterior pelvic wall ostomy with bowel [id number] mm parastomal hernia, as before. Bowel containing anterior pelvic wall hernia as before, measuring 117 mm. Previously seen fluid and gas collection within the subcutaneous fat of the anterior pelvis has nearly resolved with a small residual gas collection measuring 8 mm. Peripherally enhancing central pelvic fluid and gas collection is unchanged, measuring 38 mm. Stable, peripherally enhancing fluid collection within the right pelvis measuring 23 mm. Stable high density focus within the subcutaneous fat of the left pelvis anteriorly measuring 24 mm. The bones are intact. IMPRESSION: 1. Stable pelvic abscesses. 2. Nearly resolved subcutaneous anterior pelvic wall abscess. 3. Stable bowel containing pelvic wall hernias with no evidence of associated obstruction. 4. Findings which would be consistent with acute cholecystitis in the appropriate clinical setting. This could be further assessed with ultrasound, if clinically indicated. 5. Resolving pancreatitis. 6. Cirrhosis. 7. Increased, small right pleural effusion. Stable trace pericardial effusion. 8. New small amount of high density material within the urinary bladder which may indicate posterior hemorrhage. Correlation with urinalysis is recommended. This document has been electronically signed by: Yunior Duran MD on 02/28/2025 17:49:44 Dictated By: Yunior Duran MD Signed By: <Electronically signed by Yunior Duran MD in [place]> 02/28/251749 DD/ 48 TD/TT: 02/28/251748 Boarding Mother: Assessment and Plan (1) Abdominal pain: Status: Acute (2) Pancreatitis: Qualifiers: Acute pancreatitis complication: no infection or necrosis Chronicity: acute Pancreatitis type: unspecified pancreatitis type Qualified Code(s): K85.90 - Acute pancreatitis without necrosis or infection, unspecified Status: Acute Plan 65-year-old female with complex past surgical history well known to our general surgery service returning with the abdominal pain which I think is more consistent with her pancreatitis and not even biliary colic. She did have a HIDA scan on her last admission which was negative. Intra-abdominal fluid collections are much improved. At this point plan to carry out conservative care from a surgical perspective but treat her pancreatitis as per medical team. In regard to the possible rectal bleeding patient wants to see Dr. Velásquez on Monday. She will hold off on seeing any of the on-call general GI doctors until Monday. We will continue to follow along Procedures Date of Service Date of Service: 03/02/25
--- NOTE | 2025-03-01 14:46 | HO.PM.IMPN ---
Subjective Subjective Date of Service: 03/01/25 Interval History: no further vaginal spotting and states this was previously worked up at [facility] with US showing fibroid uterus as well as benign endometrial biopsy no further rectal bleeding high-output ileostomy, no blood in output c/o nausea Review of Systems Review of Systems: Yes all other systems are reviewed and are negative Physical Exam Vital Signs: Vital Signs: Last Vital Signs Temp 98.3 F 03/01/25 12:00 Pulse 99 03/01/25 12:00 Resp 18 03/01/25 12:00 BP 119/58 L 03/01/25 12:00 Pulse Ox 98 03/01/25 12:00 O2 Del Method Room Air 03/01/25 12:00 BMI result Body Mass Index 25.6 Gen: in no acute distress HEENT: sclera anicteric, moist mucus membranes Neck: supple Lungs: clear to auscultation bilaterally Heart: regular rate and rhythm, no murmurs Abd: soft, non-tender, non-distended; ileostomy pink Ext: no edema Skin: warm/well-perfused Neuro: alert and oriented x3, no focal findings Psych: appropriate affect Objective Data Active Medications Acetaminophen (Acetaminophen 325 Mg Tablet) 650 mg PO Q6H PRN PRN Reason: Pain, Mild 1-3,fever,headache Albuterol/Ipratropium (Albuterol/Iprat 2.5/0.5mg 3 Ml Ampul.Neb) 3 ml INHALE Q4H PRN PRN Reason: Shortness of Breath/Wheezing Amiodarone HCl (Amiodarone Hcl 200 Mg Tablet) 200 mg PO DAILY [facility] Last Admin: 03/01/25 10:10 Dose: 200 mg Documented By: AMAURI Atorvastatin Calcium (Atorvastatin Calcium 20 Mg Tablet) 20 mg PO BEDTIME [facility] Calcium Carbonate (Calcium Carbonate 750 Mg Tab.Chew) 750 mg PO Q4H PRN PRN Reason: Heartburn Carisoprodol (Carisoprodol 350 Mg Tablet) 350 mg PO BEDTIME [facility] Last Admin: 03/01/25 01:11 Dose: 350 mg Documented By: CHASITY Carvedilol (Carvedilol 6.25 Mg Tablet) 6.25 mg PO BID [facility]; Protocol Last Admin: 03/01/25 10:02 Dose: Not Given Documented By: AMAURI Non-Admin Reason: NPO Colchicine (Colchicine 0.6 Mg Tablet) 0.6 mg PO DAILY [facility] Last Admin: 03/01/25 10:10 Dose: 0.6 mg Documented By: AMAURI Gabapentin (Gabapentin 100 Mg Capsule) 100 mg PO TID [facility] Last Admin: 03/01/25 08:03 Dose: 100 mg Documented By: AMAURI Hydromorphone HCl (Hydromorphone Hcl 1 Mg/Ml Syringe) 1 mg IVPUSH Q4H PRN; Protocol PRN Reason: Pain, Severe (Pain Scale 7-10) Last Admin: 03/01/25 13:21 Dose: 1 mg Documented By: AMAURI Hydromorphone HCl (Hydromorphone Hcl 0.5 Mg/0.5 Ml Syringe) 0.5 mg IVPUSH Q3H PRN; Protocol PRN Reason: Pain, Moderate(Pain Scale 4-6) Piperacillin Sod/Tazobactam (Sod 4.5 gm/ Sodium Chloride) 100 mls @ 200 mls/hr IV Q6H [facility] Last Infusion: 03/01/25 10:40 Dose: Infused Documented By: AMAURI Dextrose/Sodium Chloride (D5ns) 1,000 mls @ 100 mls/hr IVCONT .Q10H [facility] Last Admin: 03/01/25 07:32 Dose: 100 mls/hr Documented By: AMAURI Magnesium Hydroxide (Milk Of Magnesia 30 Ml Oral.Susp) 30 ml PO DAILY PRN PRN Reason: Constipation Melatonin (Melatonin 3 Mg Tablet) 6 mg PO BEDTIME PRN PRN Reason: Insomnia Mirtazapine (Mirtazapine 15 Mg Tablet) 15 mg PO BEDTIME [facility] Last Admin: 03/01/25 01:11 Dose: 15 mg Documented By: CHASITY Multivitamins/Vitamin C (Multivitamin Tablet) 1 tab PO DAILY [facility] Last Admin: 03/01/25 10:10 Dose: 1 tab Documented By: AMAURI Non-Formulary Medication (Magnesium Glycinate) 400 mg PO DAILY [facility] Ondansetron HCl (Ondansetron Odt 4 Mg Tab.Rapdis) 4 mg TRANSLINGU Q6H PRN PRN Reason: Nausea and Vomiting Pantoprazole Sodium (Pantoprazole Sodium 40 Mg/10 Ml Vial) 40 mg IVPUSH BID@0630,1630 [facility] Last Admin: 03/01/25 06:20 Dose: 40 mg Documented By: JOY Sodium Chloride (0.9 % Sodium Chloride Flush 3 Ml Syringe) 3 ml IVFLUSH QSHIFT [facility] Last Admin: 03/01/25 07:39 Dose: 3 ml Documented By: AMAURI Labs 03/01/25 03:58 03/01/25 03:58 Labs: Laboratory Results - last 24 hr 02/28/25 02/28/25 02/28/25 12:50 19:47 21:16 MCV 90.1 MCH 29.7 MCHC 32.9 RDW 15.7 Plt Count 241 MPV 9.5 Immature Gran % (Auto) 0.5 H Neut % (Auto) 64.3 Lymph % (Auto) 21.8 [place] % (Auto) 9.6 Eos % (Auto) 3.1 Baso % (Auto) 0.7 Lymph # (Auto) 2.1 [place] # (Auto) 0.9 Eos # (Auto) 0.3 Baso # (Auto) 0.1 Abs Immat Gran (auto) 0.05 H Absolute Neuts (auto) 6.3 Absolute Nucleated RBC 0.000 Nucleated RBC % (auto) 0.0 PT 19.5 H D INR 1.7 H Anion Gap Estim Creat Clear Calc Estimated GFR Random Glucose Lactic Acid 0.7 Uric Acid Calcium Magnesium Total Bilirubin AST ALT Alkaline Phosphatase B-Natriuretic Peptide Total Protein Albumin Lipase 142 H Urine Color Urine Appearance Urine pH Ur Specific [place] Urine Protein Urine Glucose (UA) Urine Ketones Urine Blood Urine Nitrite Ur Leukocyte Esterase Urine RBC Urine WBC Ur Squamous Epith Cells Urine Bacteria Hyaline Casts Granular Casts Blood Type O Positive Antibody Screen NEGATIVE 02/28/25 03/01/25 21:50 03:58 MCV 90.0 MCH 29.3 MCHC 32.6 RDW 15.6 Plt Count 208 MPV 9.0 L Immature Gran % (Auto) 0.3 Neut % (Auto) 68.8 Lymph % (Auto) 18.2 L [place] % (Auto) 8.3 Eos % (Auto) 3.8 Baso % (Auto) 0.6 Lymph # (Auto) 1.8 [place] # (Auto) 0.8 Eos # (Auto) 0.4 Baso # (Auto) 0.1 Abs Immat Gran (auto) 0.03 Absolute Neuts (auto) 6.9 Absolute Nucleated RBC 0.000 Nucleated RBC % (auto) 0.0 PT INR Anion Gap 12 Estim Creat Clear Calc 85.0 Estimated GFR > 60 Random Glucose 88 Lactic Acid Uric Acid 4.2 Calcium 7.4 L D Magnesium 1.5 L Total Bilirubin 0.3 AST 38 H ALT < 6 Alkaline Phosphatase 125 H B-Natriuretic Peptide 211 H Total Protein 6.4 L Albumin 2.1 L Lipase 96 H Urine Color Yellow Urine Appearance Clear Urine pH 6.0 Ur Specific [place] >= 1.030 H Urine Protein 30 (1+) H Urine Glucose (UA) Negative Urine Ketones Trace Urine Blood Small (1+) H Urine Nitrite Negative Ur Leukocyte Esterase Negative Urine RBC 3-5 H Urine WBC 0-5 Ur Squamous Epith Cells 0-2 Urine Bacteria None Seen Hyaline Casts 3-5 Granular Casts Present Blood Type Antibody Screen Assessment and Plan (1) Ileostomy in place: Status: Acute Plan Patient is a 65-year-old female with past medical history diverticulitis, perforated colon 2022, NSTEMI 2022, prolonged QTC, colostomy revision 2022, Aflutter/ Afib on eliquis 2023, Pericarditis 2023, pancreatitis 2023, colovesical fistula, uterine fibroids with negative endometrial bx, subtotal colectomy and ventral hernia with repair 01/07/2025 [facility], abdominal abscesses 2024, tobacco dependence with cessation 2022 no COPD, cataracts, insomnia, 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 d2 for 65yo F with HTN, HLD, CAD, CHF, pAF on Eliquis, hx pancreatitis, recent subtotal colectomy/hernia repair at [facility] on 01/07/2025 with resultant ileostomy bag followed by admission to the ICU at [facility] from 01/20-01/25 for pulmonary edema/pericardial effusion/anemia/new onset a flutter/intra-abdominal abscess/[place] bacteremia after which patient was transferred to [facility] where she has abscesses drained; finished a course of antibiotics and discharged home on 02/17/25. Presented back to the ER on 02/18/25 overnight with a chief complaint of abdominal pain with question of cholecystitis ruled out, discharged home 02/27. Re-admitted 02/28 for abdominal pain and nausea along with vaginal spotting and BRBPR vaginal spotting - per pt, worked up at [facility] with negative endometrial biopsy and US showing fibroid uterus; will defer [employer] consultation to outpatient setting [facility] - GI + Gen Surg consults pending; hold Eliquis; unclear why having blood when much of colon was resected question of cholecystitis - doubt, prior HIDA equivocal, repeat HIDA pending, likely changes related to recent surgeries, Gen Surg consult pending, piperacillin-tazobactam 02/28- - clear liquids, advance as tolerated hypoK - replete IV; recheck level tomorrow hypoMg - replete IV; recheck level tomorrow prolonged QTc - resolved with K/Mg repletion; resume ondansetron prn N/V anemia - in setting of vaginal and rectal blood loss; continue to monitor H+H pericardial effusion - continue colchicine HLD - statin CAD - statin, carvedilol recent pancreatitis - resolving clinically and based on lipase recent intra-abdominal abscesses - s/p colectomy/ileostomy in place - improved on CT scan hx colovesical fistula - repaired without evidence of recurrence cirrhosis - LFTs stable recently diagnosed pAF - continue amiodarone; hold Eliquis due to bleeding as above; resume carvedilol VTE ppx - Eliquis on hold due to vaginal + rectal bleeding dispo - likely will need STR; PT eval In my clinical judgment, the patient requires continued inpatient hospitalization for the following reasons: specialist consultation Total time managing care of this patient today: 50 minutes. Quality Stroke Does the patient have a stroke diagnosis?: No Reason for No Anti-thrombotic by Day Two: Contraindicated VTE Prior VTE?: No VTE Risk Level:: Surgical - high VTE Device Contraindication: N/A - Device Ordered VTE Drug Contraindication: Treatment Not Indicated
--- NOTE | 2025-03-01 16:27 | MHC.CM.PN ---
PT REPORTS SHE LIVES ALONE AND IS INDEPENDENT WITH CARE SHE USES A WALKER AND HER OSTOMY SUPPLIES COME FROM [place] SHE WAS ACTIVE WITH [employer] HCP ON FILE PCP: HUA GARAY IMM DELIVERED PT STATES SHE NEEDS TO GO TO STR, SHE SAYS SHE WAS UNABLE TO GET AROUND AND THAT IS WHY SHE RETURNED SO QUICKLY SHE WILL NEED A NEW PT EVAL, THE EVAL COMPLETED PRIOR TO DC DID NOT SUPPORT STR BLS TRANSPORT
[2025-03-01 17:49] LABS: OBS Int Ctl Valid YES; OBS1 POSITIVE (NEGATIVE)
[2025-03-02] VITALS (13 sets, daily range): BP systolic 93–130; BP diastolic 52–75; PULSE 64–99; RESP 16–20; TEMP 36.3–37.7; O2SAT 95–97
[2025-03-02 03:52] LABS: Hematocrit 22.8 % (37.0-47.0); Hemoglobin 7.4 g/dl (12.0-16.0); Mean Corpuscular HGB Conc 32.5 g/dl (31.0-35.0); Mean Corpuscular Hemoglobin 29.1 pg (27.0-33.0); Mean Corpuscular Volume 89.8 fL (80.0-98.0); NRBC Abs Auto 0.000 X10*3/uL (0.0-0.012); NRBC Pct Auto 0.0 /100WBC (0.0-0.2); Platelet Count 163 X10*3/uL (160-400); Red Blood Count 2.54 X10*6/uL (4.20-5.50); White Blood Count 9.7 X10*3/uL (4.8-10.8)
[2025-03-02 03:59] LABS: INTERNATIONAL NORM RATIO 1.5 (0.9-1.1); Prothrombin Time 17.5 SEC (10.9-12.4)
[2025-03-02 04:10] LABS: Alanine Aminotransferase < 6 U/L (0-31); Albumin Level 2.0 g/dL (3.5-5.0); Alkaline Phosphatase 150 U/L (39-117); Anion Gap 10 (12-20); Aspartate Amino Transferase 40 U/L (5-31); Blood Urea Nitrogen 5 mg/dL (9-16); Calcium 7.5 mg/dL (8.4-10.2); Carbon Dioxide 24 mmol/L (22-29); Chloride 108 mmol/L (96-108); Creatinine Clr Calc Pharmacy 79.4; Estimated Glomerular Filt Rate > 60; Magnesium 1.5 mg/dL (1.6-2.6); Potassium 3.1 mmol/L (3.3-5.1); Sodium 139 mmol/L (135-145); Total Protein 6.2 g/dL (6.5-8.0)
[2025-03-02] MEDS: 0.9 % Sodium Chloride Flush 3 ML SYRINGE IVFLUSH ×3 (08:43→22:22)
[2025-03-02] MEDS: Potassium Chloride/H20 10 MEQ/100 ML PIGGYBACK 100 MEQ IV ×4 (08:49→13:13)
[2025-03-02] MEDS: Magnesium Sulfate/H2O 2 GM/50 ML PIGGYBACK IV (08:56)
--- NOTE | 2025-03-02 11:43 | P.PNIM_ITS ---
Subjective Subjective Date of Service: 03/02/25 Interval History: abd pain improved and nausea resolved had blood-tinged fluid per rectum overnight; no further vaginal bleeding wishes to eat solids Review of Systems Review of Systems: Yes all other systems are reviewed and are negative Physical Exam 2 Vital Signs: Vital Signs: Last Vital Signs Temp 98.2 F 03/02/25 11:16 Pulse 99 03/02/25 11:16 Resp 20 03/02/25 11:16 BP 130/65 03/02/25 11:16 Pulse Ox 96 03/02/25 11:16 O2 Del Method Room Air 03/02/25 11:16 BMI result Body Mass Index 25.6 Gen: in no acute distress HEENT: sclera anicteric, moist mucus membranes Neck: supple Lungs: clear to auscultation bilaterally Heart: regular rate and rhythm, no murmurs Abd: soft, non-tender, non-distended; ileostomy pink Ext: no edema Skin: warm/well-perfused Neuro: alert and oriented x3, no focal findings Psych: appropriate affect Objective Data Active Medications Acetaminophen (Acetaminophen 325 Mg Tablet) 975 mg PO Q6H PRN PRN Reason: Pain, Mild 1-3,fever,headache Albuterol/Ipratropium (Albuterol/Iprat 2.5/0.5mg 3 Ml Ampul.Neb) 3 ml INHALE Q4H PRN PRN Reason: Shortness of Breath/Wheezing Amiodarone HCl (Amiodarone Hcl 200 Mg Tablet) 200 mg PO DAILY [facility] Last Admin: 03/02/25 08:39 Dose: 200 mg Documented By: AMAURI Atorvastatin Calcium (Atorvastatin Calcium 20 Mg Tablet) 20 mg PO BEDTIME [facility] Last Admin: 03/01/25 21:14 Dose: 20 mg Documented By: OXANA Calcium Carbonate (Calcium Carbonate 750 Mg Tab.Chew) 750 mg PO Q4H PRN PRN Reason: Heartburn Carisoprodol (Carisoprodol 350 Mg Tablet) 350 mg PO BEDTIME [facility] Last Admin: 03/01/25 21:13 Dose: 350 mg Documented By: OXANA Carvedilol (Carvedilol 6.25 Mg Tablet) 6.25 mg PO BID [facility]; Protocol Last Admin: 03/02/25 08:38 Dose: 6.25 mg Documented By: AMAURI Colchicine (Colchicine 0.6 Mg Tablet) 0.6 mg PO DAILY [facility] Last Admin: 03/02/25 08:40 Dose: 0.6 mg Documented By: AMAURI Gabapentin (Gabapentin 100 Mg Capsule) 100 mg PO TID [facility] Last Admin: 03/02/25 08:38 Dose: 100 mg Documented By: AMAURI Hydromorphone HCl (Hydromorphone Hcl 1 Mg/Ml Syringe) 1 mg IVPUSH Q4H PRN; Protocol PRN Reason: Pain, Severe (Pain Scale 7-10) Last Admin: 03/02/25 03:49 Dose: 1 mg Documented By: OXANA Hydromorphone HCl (Hydromorphone Hcl 0.5 Mg/0.5 Ml Syringe) 0.5 mg IVPUSH Q3H PRN; Protocol PRN Reason: Pain, Moderate(Pain Scale 4-6) Piperacillin Sod/Tazobactam (Sod 4.5 gm/ Sodium Chloride) 100 mls @ 200 mls/hr IV Q6H [facility] Last Infusion: 03/02/25 10:50 Dose: Infused Documented By: AMAURI Potassium Chloride (Potassium Chloride/H20) 10 meq in 100 mls @ 100 mls/hr IV Q1H [facility] Stop: 03/02/25 12:29 Last Admin: 03/02/25 10:53 Dose: 100 mls/hr Documented By: AMAURI Magnesium Hydroxide (Milk Of Magnesia 30 Ml Oral.Susp) 30 ml PO DAILY PRN PRN Reason: Constipation Magnesium Oxide (Magnesium Oxide 400 Mg Tablet) 800 mg PO DAILY [facility] Last Admin: 03/02/25 08:39 Dose: 800 mg Documented By: AMAURI Melatonin (Melatonin 3 Mg Tablet) 6 mg PO BEDTIME PRN PRN Reason: Insomnia Mirtazapine (Mirtazapine 15 Mg Tablet) 15 mg PO BEDTIME [facility] Last Admin: 03/01/25 21:14 Dose: 15 mg Documented By: OXANA Multivitamins/Vitamin C (Multivitamin Tablet) 1 tab PO DAILY [facility] Last Admin: 03/02/25 08:38 Dose: 1 tab Documented By: AMAURI Non-Formulary Medication (Magnesium Glycinate) 400 mg PO DAILY [facility] Ondansetron HCl (Ondansetron Odt 4 Mg Tab.Rapdis) 4 mg TRANSLINGU Q6H PRN PRN Reason: Nausea and Vomiting Pantoprazole Sodium (Pantoprazole Sodium 40 Mg/10 Ml Vial) 40 mg IVPUSH BID@0630,1630 [facility] Last Admin: 03/02/25 06:03 Dose: 40 mg Documented By: OXANA Sodium Chloride (0.9 % Sodium Chloride Flush 3 Ml Syringe) 3 ml IVFLUSH QSHIFT [facility] Last Admin: 03/02/25 08:43 Dose: 3 ml Documented By: AMAURI Labs 03/02/25 03:45 03/02/25 03:45 Labs: Laboratory Results - last 24 hr 03/01/25 03/02/25 17:37 03:45 MCV 89.8 MCH 29.1 MCHC 32.5 RDW 15.7 Plt Count 163 MPV 8.8 L Absolute Nucleated RBC 0.000 Nucleated RBC % (auto) 0.0 PT 17.5 H INR 1.5 H Anion Gap 10 L Estim Creat Clear Calc 79.4 Estimated GFR > 60 Random Glucose 95 Calcium 7.5 L Magnesium 1.5 L Total Bilirubin 0.3 Direct Bilirubin 0.2 AST 40 H ALT < 6 Alkaline Phosphatase 150 H Total Protein 6.2 L Albumin 2.0 L Stool Occult Blood POSITIVE Microbiology Microbiology Results: Microbiology 02/28/25 22:40 Blood Culture - Preliminary Blood - Central Line No growth after 24 hours. 02/28/25 22:40 Blood Culture - Preliminary Blood - Central Line No growth after 24 hours. Assessment and Plan (1) Ileostomy in place: Status: Acute Plan d3 for 65yo F with HTN, HLD, CAD, CHF, pAF on Eliquis, hx pancreatitis, recent subtotal colectomy/hernia repair at [facility] on 01/07/2025 with resultant ileostomy bag followed by admission to the ICU at [facility] from 01/20-01/25 for pulmonary edema/pericardial effusion/anemia/new onset a flutter/intra-abdominal abscess/Finegoldia bacteremia after which patient was transferred to [facility] where she has abscesses drained; finished a course of antibiotics and discharged home on 02/17/25. Presented back to the ER on 02/18/25 overnight with a chief complaint of abdominal pain with question of cholecystitis ruled out, discharged home 02/27. Re-admitted 02/28 for abdominal pain and nausea along with vaginal spotting and BRBPR vaginal spotting - per pt, worked up at [facility] with negative endometrial biopsy and US showing fibroid uterus; will defer [employer] M[employer] OPER[employer] consultation to outpatient setting acute/chronic anemia - in setting of vaginal and rectal blood loss; transfuse 2u PRBCs [reviewed consent]; hold Eliquis; recheck CBC in AM BRBPR - GI + Gen Surg consults pending; hold Eliquis; unclear why having blood when much of colon was resected- possibly from hemorrhoids or staple line? question of cholecystitis - doubt, prior HIDA equivocal, repeat HIDA pending, likely changes related to recent surgeries, Gen Surg consult pending, piperacillin-tazobactam 02/28- - advance to regular diet hypoK - replete IV; recheck level tomorrow hypoMg - replete IV; recheck level tomorrow; resume PO maintenance prolonged QTc - resolved with K/Mg repletion; resumed ondansetron prn N/V pericardial effusion - continue colchicine HLD - statin CAD - statin, carvedilol recent pancreatitis - resolving clinically and based on lipase recent intra-abdominal abscesses - s/p colectomy/ileostomy in place - improved on CT scan hx colovesical fistula - repaired without evidence of recurrence cirrhosis - LFTs stable recently diagnosed pAF - continue amiodarone; hold Eliquis due to bleeding as above; resume carvedilol VTE ppx - Eliquis on hold due to vaginal + rectal bleeding dispo - likely will need STR; PT eval pending In my clinical judgment, the patient requires continued inpatient hospitalization for the following reasons: specialist consultation, transfusion Total time managing care of this patient today: 50 minutes. Quality Stroke Does the patient have a stroke diagnosis?: No Reason for No Anti-thrombotic by Day Two: Contraindicated VTE Prior VTE?: No VTE Risk Level:: Surgical - high VTE Device Contraindication: N/A - Device Ordered VTE Drug Contraindication: Treatment Not Indicated
--- NOTE | 2025-03-02 17:56 | PC.NURSE ---
Dr Arambula notified of blood band recommendation to infuse PRBC at 75cc/hour. He was in agreement and pump programmed accordingly. Patient denies shortness of breath or chest pain.
--- NOTE | 2025-03-02 21:45 | P.PNGS_ITS ---
Subjective Subjective Date of Service: 03/02/25 Interval history: Patient feeling better this evening getting blood. She had an episode of some more blood bleeding overnight question coming from the rectum. Physical Exam 2 Vital Signs: Vital Signs: Last Vital Signs Temp 97.4 F 03/02/25 19:41 Pulse 79 03/02/25 19:41 Resp 16 03/02/25 19:41 BP 110/60 03/02/25 19:41 Pulse Ox 95 03/02/25 19:41 O2 Del Method Room Air 03/02/25 19:41 BMI result Body Mass Index 25.6 GI: Other: Abdomen is soft less tender Objective Data Active Medications Acetaminophen (Acetaminophen 325 Mg Tablet) 975 mg PO Q6H PRN PRN Reason: Pain, Mild 1-3,fever,headache Last Admin: 03/02/25 12:20 Dose: 975 mg Documented By: AMAURI Albuterol/Ipratropium (Albuterol/Iprat 2.5/0.5mg 3 Ml Ampul.Neb) 3 ml INHALE Q4H PRN PRN Reason: Shortness of Breath/Wheezing Amiodarone HCl (Amiodarone Hcl 200 Mg Tablet) 200 mg PO DAILY [facility] Last Admin: 03/02/25 08:39 Dose: 200 mg Documented By: AMAURI Atorvastatin Calcium (Atorvastatin Calcium 20 Mg Tablet) 20 mg PO BEDTIME [facility] Last Admin: 03/01/25 21:14 Dose: 20 mg Documented By: OXANA Calcium Carbonate (Calcium Carbonate 750 Mg Tab.Chew) 750 mg PO Q4H PRN PRN Reason: Heartburn Carisoprodol (Carisoprodol 350 Mg Tablet) 350 mg PO BEDTIME [facility] Last Admin: 03/01/25 21:13 Dose: 350 mg Documented By: OXANA Carvedilol (Carvedilol 6.25 Mg Tablet) 6.25 mg PO BID [facility]; Protocol Last Admin: 03/02/25 08:38 Dose: 6.25 mg Documented By: AMAURI Colchicine (Colchicine 0.6 Mg Tablet) 0.6 mg PO DAILY [facility] Last Admin: 03/02/25 08:40 Dose: 0.6 mg Documented By: AMAURI Gabapentin (Gabapentin 100 Mg Capsule) 100 mg PO TID [facility] Last Admin: 03/02/25 16:15 Dose: Not Given Documented By: AMAURI Non-Admin Reason: Patient Refused Hydromorphone HCl (Hydromorphone Hcl 1 Mg/Ml Syringe) 1 mg IVPUSH Q4H PRN; Protocol PRN Reason: Pain, Severe (Pain Scale 7-10) Last Admin: 03/02/25 18:16 Dose: 1 mg Documented By: AMAURI Hydromorphone HCl (Hydromorphone Hcl 0.5 Mg/0.5 Ml Syringe) 0.5 mg IVPUSH Q3H PRN; Protocol PRN Reason: Pain, Moderate(Pain Scale 4-6) Piperacillin Sod/Tazobactam (Sod 4.5 gm/ Sodium Chloride) 100 mls @ 200 mls/hr IV Q6H [facility] Last Infusion: 03/02/25 16:28 Dose: Infused Documented By: AMAURI Magnesium Hydroxide (Milk Of Magnesia 30 Ml Oral.Susp) 30 ml PO DAILY PRN PRN Reason: Constipation Magnesium Oxide (Magnesium Oxide 400 Mg Tablet) 800 mg PO DAILY [facility] Last Admin: 03/02/25 08:39 Dose: 800 mg Documented By: AMAURI Melatonin (Melatonin 3 Mg Tablet) 6 mg PO BEDTIME PRN PRN Reason: Insomnia Mirtazapine (Mirtazapine 15 Mg Tablet) 15 mg PO BEDTIME [facility] Last Admin: 03/01/25 21:14 Dose: 15 mg Documented By: OXANA Multivitamins/Vitamin C (Multivitamin Tablet) 1 tab PO DAILY [facility] Last Admin: 03/02/25 08:38 Dose: 1 tab Documented By: AMAURI Non-Formulary Medication (Magnesium Glycinate) 400 mg PO DAILY [facility] Ondansetron HCl (Ondansetron Odt 4 Mg Tab.Rapdis) 4 mg TRANSLINGU Q6H PRN PRN Reason: Nausea and Vomiting Pantoprazole Sodium (Pantoprazole Sodium 40 Mg/10 Ml Vial) 40 mg IVPUSH BID@0630,1630 [facility] Last Admin: 03/02/25 15:58 Dose: 40 mg Documented By: AMAURI Sodium Chloride (0.9 % Sodium Chloride Flush 3 Ml Syringe) 3 ml IVFLUSH QSHIFT [facility] Last Admin: 03/02/25 18:05 Dose: 3 ml Documented By: AMAURI Labs 03/02/25 03:45 03/02/25 03:45 Labs: Laboratory Results - last 24 hr 02/28/25 03/02/25 19:47 03:45 MCV 89.8 MCH 29.1 MCHC 32.5 RDW 15.7 Plt Count 163 MPV 8.8 L Absolute Nucleated RBC 0.000 Nucleated RBC % (auto) 0.0 PT 17.5 H INR 1.5 H Anion Gap 10 L Estim Creat Clear Calc 79.4 Estimated GFR > 60 Random Glucose 95 Calcium 7.5 L Magnesium 1.5 L Total Bilirubin 0.3 Direct Bilirubin 0.2 AST 40 H ALT < 6 Alkaline Phosphatase 150 H Total Protein 6.2 L Albumin 2.0 L Blood Type O Positive Antibody Screen NEGATIVE Crossmatch See Detail Microbiology Microbiology Results: Microbiology 02/28/25 22:40 Blood Culture - Preliminary Blood - Central Line No growth after 24 hours. 02/28/25 22:40 Blood Culture - Preliminary Blood - Central Line No growth after 24 hours. Procedures Date of Service Date of Service: 03/02/25 Progress Note: A&P Assessment and plan (1) Pancreatitis: Status: Acute Assessment and Plan: 65-year-old female with complex surgical history now with pancreatitis improving. She is hungry. However she has these issues now with bleeding question coming from the rectum. She did have upper and lower endoscopy not that long ago before she underwent subtotal colectomy in [place]. Plan at this to have GI re-evaluate her tomorrow. Patient would like preferably Dr. Velásquez to be the want to deal with this aspect of her health Time Spent With Patient Time: Total time managing care of this patient today ____ minutes. Quality Stroke Does the patient have a stroke diagnosis?: No Reason for No Anti-thrombotic by Day Two: Contraindicated VTE Prior VTE?: No VTE Risk Level:: Surgical - high VTE Device Contraindication: N/A - Device Ordered VTE Drug Contraindication: Treatment Not Indicated
[2025-03-03] VITALS (10 sets, daily range): BP systolic 91–127; BP diastolic 55–73; PULSE 83–88; RESP 14–18; TEMP 36.4–36.9; O2SAT 96–98
[2025-03-03 07:19] LABS: Anion Gap 8 (12-20); Blood Urea Nitrogen 4 mg/dL (9-16); Calcium 7.2 mg/dL (8.4-10.2); Carbon Dioxide 25 mmol/L (22-29); Chloride 108 mmol/L (96-108); Creatinine Clr Calc Pharmacy 83.5; Estimated Glomerular Filt Rate > 60; Magnesium 1.6 mg/dL (1.6-2.6); Potassium 3.1 mmol/L (3.3-5.1); Sodium 138 mmol/L (135-145)
[2025-03-03 07:49] LABS: Hematocrit 31.2 % (37.0-47.0); Mean Corpuscular HGB Conc 32.7 g/dl (31.0-35.0); Mean Corpuscular Hemoglobin 29.4 pg (27.0-33.0); Mean Corpuscular Volume 89.9 fL (80.0-98.0); NRBC Abs Auto 0.000 X10*3/uL (0.0-0.012); NRBC Pct Auto 0.0 /100WBC (0.0-0.2); Platelet Count 176 X10*3/uL (160-400); Red Blood Count 3.47 X10*6/uL (4.20-5.50); White Blood Count 10.4 X10*3/uL (4.8-10.8)
[2025-03-03 08:10] LABS: Hemoglobin 10.2 g/dl (12.0-16.0)
[2025-03-03] MEDS: 0.9 % Sodium Chloride Flush 3 ML SYRINGE IVFLUSH ×2 (09:02→15:20)
[2025-03-03] MEDS: Potassium Chloride/H20 10 MEQ/100 ML PIGGYBACK 100 MEQ IV ×4 (09:11→13:04)
--- NOTE | 2025-03-03 10:41 | HO.PM.IMPN ---
Subjective Subjective Date of Service: 03/03/25 Interval History: tolerating diet no nausea no abd pain some mild vaginal and rectal bleeding/spotting transfused with appropriate response Review of Systems Review of Systems: Yes all other systems are reviewed and are negative Physical Exam Vital Signs: Vital Signs: Last Vital Signs Temp 97.8 F 03/03/25 07:41 Pulse 85 03/03/25 07:41 Resp 14 03/03/25 07:41 BP 105/56 L 03/03/25 07:41 Pulse Ox 96 03/03/25 07:41 O2 Del Method Room Air 03/03/25 07:41 BMI result Body Mass Index 25.6 Gen: in no acute distress HEENT: sclera anicteric, moist mucus membranes Neck: supple Lungs: clear to auscultation bilaterally Heart: regular rate and rhythm, no murmurs Abd: soft, non-tender, non-distended; ileostomy pink Ext: no edema Skin: warm/well-perfused Neuro: alert and oriented x3, no focal findings Psych: appropriate affect Objective Data Active Medications Acetaminophen (Acetaminophen 325 Mg Tablet) 975 mg PO Q6H PRN PRN Reason: Pain, Mild 1-3,fever,headache Last Admin: 03/02/25 12:20 Dose: 975 mg Documented By: AMAURI Albuterol/Ipratropium (Albuterol/Iprat 2.5/0.5mg 3 Ml Ampul.Neb) 3 ml INHALE Q4H PRN PRN Reason: Shortness of Breath/Wheezing Amiodarone HCl (Amiodarone Hcl 200 Mg Tablet) 200 mg PO DAILY [facility] Last Admin: 03/03/25 08:56 Dose: 200 mg Documented By: JESSE Atorvastatin Calcium (Atorvastatin Calcium 20 Mg Tablet) 20 mg PO BEDTIME [facility] Last Admin: 03/02/25 22:21 Dose: 20 mg Documented By: SRIDHAR Calcium Carbonate (Calcium Carbonate 750 Mg Tab.Chew) 750 mg PO Q4H PRN PRN Reason: Heartburn Carisoprodol (Carisoprodol 350 Mg Tablet) 350 mg PO BEDTIME [facility] Last Admin: 03/02/25 22:20 Dose: 350 mg Documented By: SRIDHAR Carvedilol (Carvedilol 6.25 Mg Tablet) 6.25 mg PO BID [facility]; Protocol Last Admin: 03/03/25 08:57 Dose: 6.25 mg Documented By: JESSE Colchicine (Colchicine 0.6 Mg Tablet) 0.6 mg PO DAILY [facility] Last Admin: 03/03/25 08:57 Dose: 0.6 mg Documented By: JESSE Gabapentin (Gabapentin 100 Mg Capsule) 100 mg PO TID [facility] Last Admin: 03/03/25 08:57 Dose: 100 mg Documented By: JESSE Hydromorphone HCl (Hydromorphone Hcl 1 Mg/Ml Syringe) 1 mg IVPUSH Q4H PRN; Protocol PRN Reason: Pain, Severe (Pain Scale 7-10) Last Admin: 03/03/25 08:58 Dose: 1 mg Documented By: JESSE Hydromorphone HCl (Hydromorphone Hcl 0.5 Mg/0.5 Ml Syringe) 0.5 mg IVPUSH Q3H PRN; Protocol PRN Reason: Pain, Moderate(Pain Scale 4-6) Piperacillin Sod/Tazobactam (Sod 4.5 gm/ Sodium Chloride) 100 mls @ 200 mls/hr IV Q6H [facility] Last Admin: 03/03/25 10:22 Dose: 200 mls/hr Documented By: JESSE Potassium Chloride (Potassium Chloride/H20) 10 meq in 100 mls @ 100 mls/hr IV Q1H [facility] Stop: 03/03/25 11:44 Last Admin: 03/03/25 10:21 Dose: 100 mls/hr Documented By: JESSE Magnesium Hydroxide (Milk Of Magnesia 30 Ml Oral.Susp) 30 ml PO DAILY PRN PRN Reason: Constipation Magnesium Oxide (Magnesium Oxide 400 Mg Tablet) 800 mg PO DAILY [facility] Last Admin: 03/03/25 08:57 Dose: 800 mg Documented By: JESSE Melatonin (Melatonin 3 Mg Tablet) 6 mg PO BEDTIME PRN PRN Reason: Insomnia Mirtazapine (Mirtazapine 15 Mg Tablet) 15 mg PO BEDTIME [facility] Last Admin: 03/02/25 22:21 Dose: 15 mg Documented By: KIKA-GEORGE Multivitamins/Vitamin C (Multivitamin Tablet) 1 tab PO DAILY [facility] Last Admin: 03/03/25 08:57 Dose: 1 tab Documented By: JESSE Non-Formulary Medication (Magnesium Glycinate) 400 mg PO DAILY [facility] Ondansetron HCl (Ondansetron Odt 4 Mg Tab.Rapdis) 4 mg TRANSLINGU Q6H PRN PRN Reason: Nausea and Vomiting Pantoprazole Sodium (Pantoprazole Sodium 40 Mg/10 Ml Vial) 40 mg IVPUSH BID@0630,1630 [facility] Last Admin: 03/03/25 05:08 Dose: 40 mg Documented By: KIKA-GEORGE Sodium Chloride (0.9 % Sodium Chloride Flush 3 Ml Syringe) 3 ml IVFLUSH QSHIFT [facility] Last Admin: 03/03/25 09:02 Dose: 3 ml Documented By: JESSE Labs 03/03/25 06:42 03/03/25 06:42 Labs: Laboratory Results - last 24 hr 02/28/25 03/03/25 19:47 06:42 MCV 89.9 MCH 29.4 MCHC 32.7 RDW 15.7 Plt Count 176 MPV 10.0 Absolute Nucleated RBC 0.000 Nucleated RBC % (auto) 0.0 Anion Gap 8 L Estim Creat Clear Calc 83.5 Estimated GFR > 60 Random Glucose 87 Calcium 7.2 L Magnesium 1.6 Blood Type O Positive Antibody Screen NEGATIVE Crossmatch See Detail Microbiology Microbiology Results: Microbiology 02/28/25 22:40 Blood Culture - Preliminary Blood - Central Line No growth after 48 hours. 02/28/25 22:40 Blood Culture - Preliminary Blood - Central Line No growth after 48 hours. Assessment and Plan (1) Ileostomy in place: Status: Acute Plan d4 for 65yo F with HTN, HLD, CAD, CHF, pAF on Eliquis, hx pancreatitis, recent subtotal colectomy/hernia repair at [facility] on 01/07/2025 with resultant ileostomy bag followed by admission to the ICU at [facility] from 01/20-01/25 for pulmonary edema/pericardial effusion/anemia/new onset a flutter/intra-abdominal abscess/Fine[place]ia bacteremia after which patient was transferred to [facility] where she has abscesses drained; finished a course of antibiotics and discharged home on 02/17/25. Presented back to the ER on 02/18/25 overnight with a chief complaint of abdominal pain with question of cholecystitis ruled out, discharged home 02/27. Re-admitted 02/28 for abdominal pain and nausea along with vaginal spotting and BRBPR acute/chronic anemia - in setting of vaginal and rectal blood loss; transfused 2u pRBCs with appropriate response; holding Eliquis vaginal spotting - per pt, worked up at [facility] with negative endometrial biopsy and US showing fibroid uterus; will defer further [employer]AN[employer] TE[employer]ER care to outpatient setting BRBPR - GI consult pending; hold Eliquis; unclear why having blood when much of colon was resected- possibly from hemorrhoids or staple line? question of cholecystitis - doubt, prior HIDA equivocal, will cancel this HIDA likely changes related to recent surgeries, d/c'ed piperacillin-tazobactam 02/28-03/03 - advanced to regular diet hypoK - replete IV; recheck level tomorrow [refuses PO K] hypoMg- repleted; continue maintenance prolonged QTc - resolved with K/Mg repletion; resumed ondansetron prn N/V recent pancreatitis- resolving clinically and based on lipase recent intra-abdominal abscesses- s/p colectomy/ileostomy in place; improved on CT scan recently diagnosed pAF - continue amiodarone; hold Eliquis due to bleeding as above; resume carvedilol hx colovesical fistula- repaired without evidence of recurrence pericardial effusion- continue colchicine HLD- statin CAD- statin, carvedilol cirrhosis- LFTs stable VTE ppx- Eliquis on hold due to vaginal + rectal bleeding dispo- likely will need STR; PT eval pending In my clinical judgment, the patient requires continued inpatient hospitalization for the following reasons: specialist consultation for GI bleeding Total time managing care of this patient today: 50 minutes. Quality Stroke Does the patient have a stroke diagnosis?: No Reason for No Anti-thrombotic by Day Two: Contraindicated VTE Prior VTE?: No VTE Risk Level:: Surgical - high VTE Device Contraindication: N/A - Device Ordered VTE Drug Contraindication: Treatment Not Indicated
--- NOTE | 2025-03-03 12:32 | MHC.CM.PN ---
Per ROUNDS discussion, Patient is not yet medically cleared for dc (GI Consult pending); Patient will benefit from a PT Eval to assist with disposition. CM will follow.
--- NOTE | 2025-03-03 12:55 | PM.PNGS ---
Subjective Subjective Date of Service: 03/03/25 Interval history: States she has noticed small amounts of blood from her rectum She says she knows she has hemorrhoids Over all, actually feeling better Oral intake improving Physical Exam Vital Signs: Vital Signs: Last Vital Signs Temp 97.6 F 03/03/25 11:10 Pulse 86 03/03/25 11:10 Resp 16 03/03/25 11:10 BP 127/66 03/03/25 11:10 Pulse Ox 97 03/03/25 11:10 O2 Del Method Room Air 03/03/25 11:10 BMI result Body Mass Index 25.6 Const: General: comfortable and no acute distress Resp: Effort & Inspection: normal respiratory effort Cardio: Rate: regular rate GI: Other: Ileostomy functioning Palpation (GI): Soft to palpation, not firm and nontender Objective Data Active Medications Acetaminophen (Acetaminophen 325 Mg Tablet) 975 mg PO Q6H PRN PRN Reason: Pain, Mild 1-3,fever,headache Last Admin: 03/02/25 12:20 Dose: 975 mg Documented By: AMAURI Albuterol/Ipratropium (Albuterol/Iprat 2.5/0.5mg 3 Ml Ampul.Neb) 3 ml INHALE Q4H PRN PRN Reason: Shortness of Breath/Wheezing Amiodarone HCl (Amiodarone Hcl 200 Mg Tablet) 200 mg PO DAILY [facility] Last Admin: 03/03/25 08:56 Dose: 200 mg Documented By: JESSE Atorvastatin Calcium (Atorvastatin Calcium 20 Mg Tablet) 20 mg PO BEDTIME [facility] Last Admin: 03/02/25 22:21 Dose: 20 mg Documented By: SRIDHAR Calcium Carbonate (Calcium Carbonate 750 Mg Tab.Chew) 750 mg PO Q4H PRN PRN Reason: Heartburn Carisoprodol (Carisoprodol 350 Mg Tablet) 350 mg PO BEDTIME [facility] Last Admin: 03/02/25 22:20 Dose: 350 mg Documented By: SRIDHAR Carvedilol (Carvedilol 6.25 Mg Tablet) 6.25 mg PO BID [facility]; Protocol Last Admin: 03/03/25 08:57 Dose: 6.25 mg Documented By: JESSE Colchicine (Colchicine 0.6 Mg Tablet) 0.6 mg PO DAILY [facility] Last Admin: 03/03/25 08:57 Dose: 0.6 mg Documented By: JESSE Gabapentin (Gabapentin 100 Mg Capsule) 100 mg PO TID [facility] Last Admin: 03/03/25 08:57 Dose: 100 mg Documented By: JESSE Hydromorphone HCl (Hydromorphone Hcl 1 Mg/Ml Syringe) 1 mg IVPUSH Q4H PRN; Protocol PRN Reason: Pain, Severe (Pain Scale 7-10) Last Admin: 03/03/25 08:58 Dose: 1 mg Documented By: JESSE Hydromorphone HCl (Hydromorphone Hcl 0.5 Mg/0.5 Ml Syringe) 0.5 mg IVPUSH Q3H PRN; Protocol PRN Reason: Pain, Moderate(Pain Scale 4-6) Magnesium Hydroxide (Milk Of Magnesia 30 Ml Oral.Susp) 30 ml PO DAILY PRN PRN Reason: Constipation Magnesium Oxide (Magnesium Oxide 400 Mg Tablet) 800 mg PO DAILY [facility] Last Admin: 03/03/25 08:57 Dose: 800 mg Documented By: JESSE Melatonin (Melatonin 3 Mg Tablet) 6 mg PO BEDTIME PRN PRN Reason: Insomnia Mirtazapine (Mirtazapine 15 Mg Tablet) 15 mg PO BEDTIME [facility] Last Admin: 03/02/25 22:21 Dose: 15 mg Documented By: SRIDHAR Multivitamins/Vitamin C (Multivitamin Tablet) 1 tab PO DAILY [facility] Last Admin: 03/03/25 08:57 Dose: 1 tab Documented By: JESSE Non-Formulary Medication (Magnesium Glycinate) 400 mg PO DAILY [facility] Ondansetron HCl (Ondansetron Odt 4 Mg Tab.Rapdis) 4 mg TRANSLINGU Q6H PRN PRN Reason: Nausea and Vomiting Pantoprazole Sodium (Pantoprazole Sodium 40 Mg/10 Ml Vial) 40 mg IVPUSH BID@0630,1630 [facility] Last Admin: 03/03/25 05:08 Dose: 40 mg Documented By: SRIDHAR Sodium Chloride (0.9 % Sodium Chloride Flush 3 Ml Syringe) 3 ml IVFLUSH QSHIFT [facility] Last Admin: 03/03/25 09:02 Dose: 3 ml Documented By: JESSE Labs 03/03/25 06:42 03/03/25 06:42 Labs: Laboratory Results - last 24 hr 02/28/25 03/03/25 19:47 06:42 MCV 89.9 MCH 29.4 MCHC 32.7 RDW 15.7 Plt Count 176 MPV 10.0 Absolute Nucleated RBC 0.000 Nucleated RBC % (auto) 0.0 Anion Gap 8 L Estim Creat Clear Calc 83.5 Estimated GFR > 60 Random Glucose 87 Calcium 7.2 L Magnesium 1.6 Blood Type O Positive Antibody Screen NEGATIVE Crossmatch See Detail Microbiology Microbiology Results: Microbiology 02/28/25 22:40 Blood Culture - Preliminary Blood - Central Line No growth after 48 hours. 02/28/25 22:40 Blood Culture - Preliminary Blood - Central Line No growth after 48 hours. Procedures Date of Service Date of Service: 03/03/25 Progress Note: A&P Assessment and plan (1) Anemia: Status: Acute Assessment and Plan: Transfused yesterday Describes some blood from rectum - she has a short rectal stump Awaiting to be seen by Dr. Velásquez Abdomen is soft and Follow H&H Clinically improving overall Time Spent With Patient Time: Total time managing care of this patient today ____ minutes. Quality Stroke Does the patient have a stroke diagnosis?: No Reason for No Anti-thrombotic by Day Two: Contraindicated VTE Prior VTE?: No VTE Risk Level:: Surgical - high VTE Device Contraindication: N/A - Device Ordered VTE Drug Contraindication: Treatment Not Indicated
--- NOTE | 2025-03-03 16:16 | MHC.CM.PN ---
PT is recommending Acute Rehab; CM will follow.
--- NOTE | 2025-03-03 16:27 | HO.WOUND ---
Wound Consult: Initial 65yr old female admitted to [facility] [place]25 with complex medical history see H&P and notes for details. She has a ileostomy that she has had for over a year at this time. She reports continued independence with care of the pouch and stoma. The stoma was observed through the pouch and appears pink and moist. The Pouch was not leaking no change needed at this time. The patient was noted to be in a convex pouch by coloplast - she reports she brought in her own supplies and will continue to use them. She is requesting curved blunted scissors to cut her pouch these were provided to her. No teaching needed and should more supplies be needed prior to discharge please TT wound care nurse. Wound Care consult for midline incision - mid incision with dried stable scab in place - no dressing needed at this time. Overall this incision is improving, as long as scab remains intact and stable may leave JOHN. no current drainage noted - no erythema noted. No s/s of infection noted Ostomy care: Patient is independent - [employer] [id number] only available from the wound nurse, should more supplies be needed prior to discharge please TT wound care nurse.
--- NOTE | 2025-03-03 17:41 | P.CNGI_ITS ---
History of Present Illness Data of Consult Service Date: 03/03/25 Primary Care Provider: Joi Rebollar MD HPI Reason for consult: rectal bleeding 65-year-old female with past medical history diverticulitis, perforated colon 2022, NSTEMI 2022, prolonged QTC, colostomy revision 2022, Aflutter/ Afib on eliquis 2023, Pericarditis 2023, pancreatitis 2023, colovesical fistula, uterine fibroids with negative endometrial bx, subtotal colectomy and ventral hernia with repair 01/07/2025 [facility] [place] who I am seeing for assessment for rectal bleeding. Patient was admitted with rectal bleeding, vaginal bleeding in the setting of ileostomy and subtotal colectomy. The bleeding seems to have ceased. she denies abdominal pain, no n.v, and no fever or chills. she has been worked up for possible cholecystitis as well. Her last EGD and colonoscopy was 2023 with mild diverticulosis and internal hemorrhoids. Prior imaging in the past with colvesical fistula. Review of Systems 2 Review of Systems: Constitutional : No Weight loss, No Fever, No Chills ENT/Mouth : No sore throat, No Rhinorrhea Eyes: No Swelling, No Redness Cardiovascular : No Chest Pain, No SOB, No Edema Respiratory : No Cough, No Sputum, No Wheezing Gastrointestinal : see HPI Genitourinary : NO Dysuria, No Urinary Frequency, , No Urgency Musculoskeletal : no joint pain, No Myalgias, No Joint Swelling Skin : No Skin Lesions, No rash Neuro : No Weakness, No Numbness, No Dizziness, No Headache Psych : No Anxiety/Panic, No Depression Heme/Lymph: No Bruising, No Lymphadenopathy Endocrine : No Polyuria, No Polydipsia All other systems reviewed and are negative. [facility] Past Medical History Medical History (Updated 03/03/25 @ 17:56 by Carole Velásquez MD) Pancreatitis Insomnia Bilateral knee pain Polyarthralgia MARKIE (acute kidney injury) Back pain Arthritis History of transfusion of packed red blood cells Anemia Cardiomyopathy MARKIE (acute kidney injury) MARKIE (acute kidney injury) Anxiety Small bowel obstruction Myocardial infarction NSTEMI (non-ST elevated myocardial infarction) NSVT (nonsustained ventricular tachycardia) PVC (premature ventricular contraction) Hypertension Perforated diverticulum Irritable bowel syndrome with constipation Barretts esophagus GERD (gastroesophageal reflux disease) Family History Family History Father Colon cancer Congestive heart failure Paternal Aunt Colon cancer Mother Congestive heart failure Afib Surgical History Surgical History S/P colon resection PIC line (peripherally inserted central catheter) removal History of low anterior resection of rectum Status post cardiac catheterization Ileostomy in place H/O dilation and curettage History of exploratory laparotomy (05/11/23) S/P colostomy Colovesical fistula History of esophagogastroduodenoscopy (EGD) Hx of colonoscopy Social History Social History Household Members: None Housing: House Are you a primary care trainer to a significant other at home: No Do you presently have visiting nurse or other home services: Yes ([facility] on hold) Alcohol intake: never Comment: located near nursing station Patient Tobacco Use Status: Former Tobacco user Tobacco use type: Cigarette Cigarette Packs Per Day: 0.5 Cigarettes Per Day: 10.0 Years Smoked: 25 e-Cigarette/Vaping Use: Former Use Second Hand Smoke Exposure: No Substance Use Type: Marijuana Advance Directives Date on File: 12/29/23 service: No Cognitive needs: No Hearing needs: No Vision needs: Yes Meds Allergies Allergy/AdvReac Type Severity Reaction Status Date / Time clams Allergy Severe Stomach Verified 02/28/25 11:41 Upset clavulanic acid (Augmentin) Allergy Unknown GI, Verified 02/28/25 11:41 Difficulty breathing codeine (CODEINE) Allergy Unknown SENSITIVIT Verified 02/28/25 11:41 Y erythromycin base Allergy Unknown GI, DIFF Verified 02/28/25 11:41 (Erythromycin Base) BREATHING Sulfa (Sulfonamide Allergy Unknown RASH Verified 02/28/25 11:41 Antibiotics) morphine (MORPHINE) AdvReac Severe Difficulty Verified 02/28/25 11:41 Breathing aspirin (Aspirin) AdvReac Mild STOMACH Verified 02/28/25 11:41 UPSET melatonin AdvReac Vomiting Verified 02/28/25 11:41 Active Medications: Current Medications Acetaminophen (Acetaminophen 325 Mg Tablet) 975 mg PO Q6H PRN PRN Reason: Pain, Mild 1-3,fever,headache Last Admin: 03/02/25 12:20 Dose: 975 mg Albuterol/Ipratropium (Albuterol/Iprat 2.5/0.5mg 3 Ml Ampul.Neb) 3 ml INHALE Q4H PRN PRN Reason: Shortness of Breath/Wheezing Amiodarone HCl (Amiodarone Hcl 200 Mg Tablet) 200 mg PO DAILY [facility] Last Admin: 03/03/25 08:56 Dose: 200 mg Atorvastatin Calcium (Atorvastatin Calcium 20 Mg Tablet) 20 mg PO BEDTIME [facility] Last Admin: 03/02/25 22:21 Dose: 20 mg Calcium Carbonate (Calcium Carbonate 750 Mg Tab.Chew) 750 mg PO Q4H PRN PRN Reason: Heartburn Carisoprodol (Carisoprodol 350 Mg Tablet) 350 mg PO BEDTIME [facility] Last Admin: 03/02/25 22:20 Dose: 350 mg Carvedilol (Carvedilol 6.25 Mg Tablet) 6.25 mg PO BID [facility]; Protocol Last Admin: 03/03/25 08:57 Dose: 6.25 mg Colchicine (Colchicine 0.6 Mg Tablet) 0.6 mg PO DAILY [facility] [place] Last Admin: 03/03/25 08:57 Dose: 0.6 mg Gabapentin (Gabapentin 100 Mg Capsule) 100 mg PO TID [facility] Last Admin: 03/03/25 15:20 Dose: 100 mg Hydromorphone HCl (Hydromorphone Hcl 1 Mg/Ml Syringe) 1 mg IVPUSH Q4H PRN; Protocol PRN Reason: Pain, Severe (Pain Scale 7-10) Last Admin: 03/03/25 15:21 Dose: 1 mg Hydromorphone HCl (Hydromorphone Hcl 0.5 Mg/0.5 Ml Syringe) 0.5 mg IVPUSH Q3H PRN; Protocol PRN Reason: Pain, Moderate(Pain Scale 4-6) Magnesium Hydroxide (Milk Of Magnesia 30 Ml Oral.Susp) 30 ml PO DAILY PRN PRN Reason: Constipation Magnesium Oxide (Magnesium Oxide 400 Mg Tablet) 800 mg PO DAILY [facility] [place] Last Admin: 03/03/25 08:57 Dose: 800 mg Melatonin (Melatonin 3 Mg Tablet) 6 mg PO BEDTIME PRN PRN Reason: Insomnia Mirtazapine (Mirtazapine 15 Mg Tablet) 15 mg PO BEDTIME [facility] Last Admin: 03/02/25 22:21 Dose: 15 mg Multivitamins/Vitamin C (Multivitamin Tablet) 1 tab PO DAILY [facility] Last Admin: 03/03/25 08:57 Dose: 1 tab Non-Formulary Medication (Magnesium Glycinate) 400 mg PO DAILY [facility] [place] Ondansetron HCl (Ondansetron Odt 4 Mg Tab.Rapdis) 4 mg TRANSLINGU Q6H PRN PRN Reason: Nausea and Vomiting Pantoprazole Sodium (Pantoprazole Sodium 40 Mg/10 Ml Vial) 40 mg IVPUSH BID@0630,1630 [facility] Last Admin: 03/03/25 15:20 Dose: 40 mg Sodium Chloride (0.9 % Sodium Chloride Flush 3 Ml Syringe) 3 ml IVFLUSH QSHIFT [facility] [facility] Last Admin: 03/03/25 15:20 Dose: 3 ml Home Medications ?Medication ?Instructions ?Recorded ?Confirmed ?Last Taken ?Type mirtazapine 15 mg tablet 15 mg PO BEDTIME 11/30/2303/19/24 09:00 History multivitamin with minerals-folic 1 tab PO DAILY 03/01/25 02/18/25 History acid 200 mcg chewable tablet (Multivitamin Gummies) carisoprodol 350 mg tablet 350 mg PO BEDTIME 03/19/24 03/01/25 03/19/24 09:00 History magnesium glycinate 400 mg PO DAILY 03/19/2402/18/25 History ondansetron 4 mg disintegrating 4 mg PO Q8H PRN Nausea And Vomiting 01/15/25 03/01/25 02/18/25 History tablet amiodarone 200 mg tablet 200 mg PO DAILY 02/19/2502/18/25 History apixaban 5 mg tablet (Eliquis) 5 mg PO BID 02/19/2502/18/25 History colchicine 0.6 mg tablet 0.6 mg PO DAILY 02/19/2502/18/25 History esomeprazole magnesium 20 mg 20 mg PO DAILY@0630 02/1903/01/25 02/18/25 History capsule,delayed release (Nexium) gabapentin 100 mg capsule 100 mg PO Q8H 02/19/2503/0102/18/25 History Physical Exam 2 Vital Signs: Vital Signs: Last Vital Signs Temp 98.4 F 03/03/25 14:43 Pulse 83 03/03/25 14:43 Resp 16 03/03/25 15:10 BP 110/63 03/03/25 15:10 Pulse Ox 97 03/03/25 14:43 O2 Del Method Room Air 03/03/25 14:43 BMI result Body Mass Index 25.6 EXAM: GENERAL: The patient is fatigued . VITAL SIGNS:see workflow HEENT: Nonicteric sclerae, PERRLA, EOMI. Oropharynx clear. Moist mucous membranes. Conjunctivae appear well perfused. No thyroid mass. CHEST: Chest wall is nontender. HEART: Regular rate and rhythm without murmurs. LUNGS: Clear to auscultation bilaterally. ABDOMEN: Soft, positive bowel sounds, nontender, no organomegaly.no flank tenderness--scars noted, ileostomy bag in place with brownish stool SKIN: No rash, no excessive bruising, petechiae, or purpura. NEUROLOGIC: Cranial nerves II-XII intact without motor/sensory deficit. Psych: normal affect Results Labs 03/03/25 06:42 03/03/25 06:42 Labs: Short CBC 03/03/25 Range/Units 06:42 WBC 10.4 (4.8-10.8) X10*3/uL Hgb 10.2 L D (12.0-16.0) g/dl Hct 31.2 L D (37.0-47.0) % Plt Count 176 (160-400) X10*3/uL BMP 03/03/25 06:42 Sodium 138 Potassium 3.1 L Chloride 108 Carbon Dioxide 25 BUN 4 L Creatinine 0.58 Calcium 7.2 L Microbiology Microbiology Results: Microbiology 02/28/25 22:40 Blood - Central Line Blood Culture - Preliminary No growth after 48 hours. 02/28/25 22:40 Blood - Central Line Blood Culture - Preliminary No growth after 48 hours. Assessment and Plan (1) Rectal bleeding: Status: Acute Plan 1/ Rectal bleeding, could be from colo vaginal fistula, vs diversion colitis, or internal hemorrhoids or mucosal bleeding from eliquis PLAN: 1/ sigmoidoscopy tomorrow for further assessment Procedures Date of Service Date of Service: 03/03/25
[2025-03-04] VITALS (9 sets, daily range): BP systolic 84–117; BP diastolic 51–71; PULSE 79–91; RESP 16–18; TEMP 36.3–37.1; O2SAT 93–98
[2025-03-04] MEDS: 0.9 % Sodium Chloride Flush 3 ML SYRINGE IVFLUSH ×4 (05:34→20:31)
[2025-03-04 06:52] LABS: Hematocrit 33.2 % (37.0-47.0); Hemoglobin 10.6 g/dl (12.0-16.0); Mean Corpuscular HGB Conc 31.9 g/dl (31.0-35.0); Mean Corpuscular Hemoglobin 28.7 pg (27.0-33.0); Mean Corpuscular Volume 90.0 fL (80.0-98.0); NRBC Abs Auto 0.000 X10*3/uL (0.0-0.012); NRBC Pct Auto 0.0 /100WBC (0.0-0.2); Platelet Count 190 X10*3/uL (160-400); Red Blood Count 3.69 X10*6/uL (4.20-5.50); White Blood Count 12.4 X10*3/uL (4.8-10.8)
[2025-03-04 07:08] LABS: Anion Gap 9 (12-20); Blood Urea Nitrogen 5 mg/dL (9-16); Calcium 7.5 mg/dL (8.4-10.2); Carbon Dioxide 24 mmol/L (22-29); Chloride 105 mmol/L (96-108); Creatinine Clr Calc Pharmacy 82.1; Estimated Glomerular Filt Rate > 60; Potassium 3.5 mmol/L (3.3-5.1); Sodium 134 mmol/L (135-145)
[2025-03-04 07:21] LABS: Magnesium 1.5 mg/dL (1.6-2.6)
--- NOTE | 2025-03-04 13:22 | HO.PM.IMPN ---
Subjective Subjective Date of Service: 03/04/25 Interval History: No acute issues overnight. Continues with bleeding Review of Systems Denies chest pain Denies shortness of breath Denies nausea vomiting diarrhea Denies fever chills Physical Exam Vital Signs: Vital Signs: Last Vital Signs Temp 98.8 F 03/04/25 11:16 Pulse 84 03/04/25 11:16 Resp 17 03/04/25 11:16 BP 109/67 03/04/25 11:16 Pulse Ox 95 03/04/25 11:16 O2 Del Method Room Air 03/04/25 11:16 BMI result Body Mass Index 25.6 Const: Other: Awake alert no acute distress Resp: Other: Clear to auscultation bilaterally no rales rhonchi or wheezes Cardio: Other: No S4; positive S1-S2; no S3 murmurs rubs or gallops GI: Other: Soft positive bowel sounds ileostomy in place Extrem: Other: No edema bilaterally Objective Data Active Medications Acetaminophen (Acetaminophen 325 Mg Tablet) 975 mg PO Q6H PRN PRN Reason: Pain, Mild 1-3,fever,headache Last Admin: 03/02/25 12:20 Dose: 975 mg Documented By: AMAURI Albuterol/Ipratropium (Albuterol/Iprat 2.5/0.5mg 3 Ml Ampul.Neb) 3 ml INHALE Q4H PRN PRN Reason: Shortness of Breath/Wheezing Amiodarone HCl (Amiodarone Hcl 200 Mg Tablet) 200 mg PO DAILY [facility] Last Admin: 03/04/25 09:19 Dose: 200 mg Documented By: STEFFANIE Atorvastatin Calcium (Atorvastatin Calcium 20 Mg Tablet) 20 mg PO BEDTIME [facility] Last Admin: 03/03/25 21:08 Dose: 20 mg Documented By: EUSEBIO Calcium Carbonate (Calcium Carbonate 750 Mg Tab.Chew) 750 mg PO Q4H PRN PRN Reason: Heartburn Carisoprodol (Carisoprodol 350 Mg Tablet) 350 mg PO BEDTIME [facility] Last Admin: 03/03/25 21:06 Dose: 350 mg Documented By: EUSEBIO Carvedilol (Carvedilol 6.25 Mg Tablet) 6.25 mg PO BID [facility]; Protocol Last Admin: 03/04/25 09:19 Dose: 6.25 mg Documented By: STEFFANIE Colchicine (Colchicine 0.6 Mg Tablet) 0.6 mg PO DAILY [facility] Last Admin: 03/04/25 09:19 Dose: 0.6 mg Documented By: STEFFANIE Gabapentin (Gabapentin 100 Mg Capsule) 100 mg PO TID [facility] Last Admin: 03/04/25 09:19 Dose: 100 mg Documented By: STEFFANIE Hydromorphone HCl (Hydromorphone Hcl 1 Mg/Ml Syringe) 1 mg IVPUSH Q4H PRN; Protocol PRN Reason: Pain, Severe (Pain Scale 7-10) Last Admin: 03/04/25 10:28 Dose: 1 mg Documented By: JESSE Hydromorphone HCl (Hydromorphone Hcl 0.5 Mg/0.5 Ml Syringe) 0.5 mg IVPUSH Q3H PRN; Protocol PRN Reason: Pain, Moderate(Pain Scale 4-6) Magnesium Hydroxide (Milk Of Magnesia 30 Ml Oral.Susp) 30 ml PO DAILY PRN PRN Reason: Constipation Magnesium Oxide (Magnesium Oxide 400 Mg Tablet) 800 mg PO DAILY [facility] Last Admin: 03/04/25 09:19 Dose: 800 mg Documented By: STEFFANIE Melatonin (Melatonin 3 Mg Tablet) 6 mg PO BEDTIME PRN PRN Reason: Insomnia Mirtazapine (Mirtazapine 15 Mg Tablet) 15 mg PO BEDTIME [facility] Last Admin: 03/03/25 21:06 Dose: 15 mg Documented By: EUSEBIO Multivitamins/Vitamin C (Multivitamin Tablet) 1 tab PO DAILY [facility] Last Admin: 03/04/25 09:19 Dose: 1 tab Documented By: STEFFANIE Non-Formulary Medication (Magnesium Glycinate) 400 mg PO DAILY [facility] Ondansetron HCl (Ondansetron Odt 4 Mg Tab.Rapdis) 4 mg TRANSLINGU Q6H PRN PRN Reason: Nausea and Vomiting Last Admin: 03/03/25 20:49 Dose: 4 mg Documented By: EUSEBIO Pantoprazole Sodium (Pantoprazole Sodium 40 Mg/10 Ml Vial) 40 mg IVPUSH BID@0630,1630 [facility] Last Admin: 03/04/25 05:34 Dose: 40 mg Documented By: EUSEBIO Sodium Chloride (0.9 % Sodium Chloride Flush 3 Ml Syringe) 3 ml IVFLUSH QSHIFT [facility]PLACED [facility] Last Admin: 03/04/25 09:21 Dose: 3 ml Documented By: STEFFANIE Labs 03/04/25 06:15 03/04/25 06:15 Labs: Laboratory Results - last 24 hr 03/04/25 06:15 MCV 90.0 MCH 28.7 MCHC 31.9 RDW 15.4 Plt Count 190 MPV 9.9 Absolute Nucleated RBC 0.000 Nucleated RBC % (auto) 0.0 Anion Gap 9 L Estim Creat Clear Calc 82.1 Estimated GFR > 60 Random Glucose 73 Calcium 7.5 L Magnesium 1.5 L Assessment and Plan (1) Anemia: Status: Acute (2) Rectal bleeding: Status: Acute (3) CAD (coronary artery disease): Status: Acute Plan 65yo F with HTN, HLD, CAD, CHF, pAF on Eliquis, hx pancreatitis, recent subtotal colectomy/hernia repair at [facility] on 01/07/2025 with resultant ileostomy bag followed by admission to the ICU at [facility] from 01/20-01/25 for pulmonary edema/pericardial effusion/anemia/new onset a flutter/intra-abdominal abscess/Finegoldia bacteremia after which patient was transferred to [facility] where she has abscesses drained; finished a course of antibiotics and discharged home on 02/17/25. Presented back to the ER on 02/18/25 overnight with a chief complaint of abdominal pain with question of cholecystitis ruled out, discharged home 02/27. Re-admitted 02/28 for abdominal pain and nausea along with vaginal spotting and BRBPR 1.Acute/chronic anemia...BRBPR - hold Eliquis at this time follow CBC -hemoglobin stable -for sigmoidoscopy today 2HypoK/Mag - replete IV -follow renal/divalent 3.Pericardial effusion - continue colchicine 4.CAD -stable and well compensated at this time In my clinical judgment, the patient requires continued inpatient hospitalization for the following reasons: specialist consultation for GI bleeding Quality Stroke Does the patient have a stroke diagnosis?: No Reason for No Anti-thrombotic by Day Two: Contraindicated VTE Prior VTE?: No VTE Risk Level:: Surgical - high VTE Device Contraindication: N/A - Device Ordered VTE Drug Contraindication: Treatment Not Indicated
--- NOTE | 2025-03-04 13:26 | HO.ANESPROP2 ---
[facility] Active Problems Active Problems: All Active Problems Rectal bleeding (Acute) Abdominal pain (Acute) Pancreatitis (Acute) Anemia (Acute) Uterine myoma (Acute) Postmenopausal bleeding (Acute) Acute cholecystitis (Acute) Acute hypokalemia (Acute) Hypomagnesemia (Acute) Atrial flutter (Acute) CAD (coronary artery disease) (Acute) Intra-abdominal abscess post-procedure (Acute) Increased ileostomy output (Acute) Stress-induced cardiomyopathy (Acute) Hiatal hernia (Acute) Diverticulosis (Acute) Insomnia (Acute) Bilateral knee pain (Acute) Polyarthralgia (Acute) Ileostomy in place (Acute) PVC (premature ventricular contraction) (Acute) Past Medical History Medical History Pancreatitis Insomnia Bilateral knee pain Polyarthralgia MARKIE (acute kidney injury) Back pain Arthritis History of transfusion of packed red blood cells Anemia Cardiomyopathy MARKIE (acute kidney injury) MARKIE (acute kidney injury) Anxiety Small bowel obstruction Myocardial infarction NSTEMI (non-ST elevated myocardial infarction) NSVT (nonsustained ventricular tachycardia) PVC (premature ventricular contraction) Hypertension Perforated diverticulum Irritable bowel syndrome with constipation Barretts esophagus GERD (gastroesophageal reflux disease) Functional capacity: wheelchair bound Family History Family History Father Colon cancer Congestive heart failure Paternal Aunt Colon cancer Mother Congestive heart failure Afib Family history of problems with anesthesia: No Surgical History Surgical History S/P colon resection PIC line (peripherally inserted central catheter) removal History of low anterior resection of rectum Status post cardiac catheterization Ileostomy in place H/O dilation and curettage History of exploratory laparotomy (05/11/23) S/P colostomy Colovesical fistula History of esophagogastroduodenoscopy (EGD) Hx of colonoscopy History of Problems with Anesthesia: No Social History Social History Household Members: None Housing: House Are you a primary ocular care technician to a significant other at home: No Do you presently have visiting nurse or other home services: Yes ([facility] on hold) Alcohol intake: never Comment: located near nursing station Patient Tobacco Use Status: Former Tobacco user Tobacco use type: Cigarette Cigarette Packs Per Day: 0.5 Cigarettes Per Day: 10.0 Years Smoked: 25 e-Cigarette/Vaping Use: Former Use Second Hand Smoke Exposure: No Substance Use Type: Marijuana Advance Directives Date on File: 12/29/23 service: No Cognitive needs: No Hearing needs: No Vision needs: Yes Meds Allergies Allergy/AdvReac Type Severity Reaction Status Date / Time clams Allergy Severe Stomach Verified 02/28/25 11:41 Upset clavulanic acid (Augmentin) Allergy Unknown GI, Verified 02/28/25 11:41 Difficulty breathing codeine (CODEINE) Allergy Unknown SENSITIVIT Verified 02/28/25 11:41 Y erythromycin base Allergy Unknown GI, DIFF Verified 02/28/25 11:41 (Erythromycin Base) BREATHING Sulfa (Sulfonamide Allergy Unknown RASH Verified 02/28/25 11:41 Antibiotics) morphine (MORPHINE) AdvReac Severe Difficulty Verified 02/28/25 11:41 Breathing aspirin (Aspirin) AdvReac Mild STOMACH Verified 02/28/25 11:41 UPSET melatonin AdvReac Vomiting Verified 02/28/25 11:41 Active Medications: Current Medications Acetaminophen (Acetaminophen 325 Mg Tablet) 975 mg PO Q6H PRN PRN Reason: Pain, Mild 1-3,fever,headache Last Admin: 03/02/25 12:20 Dose: 975 mg Albuterol/Ipratropium (Albuterol/Iprat 2.5/0.5mg 3 Ml Ampul.Neb) 3 ml INHALE Q4H PRN PRN Reason: Shortness of Breath/Wheezing Amiodarone HCl (Amiodarone Hcl 200 Mg Tablet) 200 mg PO DAILY [facility] Last Admin: 03/04/25 09:19 Dose: 200 mg Atorvastatin Calcium (Atorvastatin Calcium 20 Mg Tablet) 20 mg PO BEDTIME [facility] Last Admin: 03/03/25 21:08 Dose: 20 mg Calcium Carbonate (Calcium Carbonate 750 Mg Tab.Chew) 750 mg PO Q4H PRN PRN Reason: Heartburn Carisoprodol (Carisoprodol 350 Mg Tablet) 350 mg PO BEDTIME [facility] Last Admin: 03/03/25 21:06 Dose: 350 mg Carvedilol (Carvedilol 6.25 Mg Tablet) 6.25 mg PO BID [facility]; Protocol Last Admin: 03/04/25 09:19 Dose: 6.25 mg Colchicine (Colchicine 0.6 Mg Tablet) 0.6 mg PO DAILY [facility] Last Admin: 03/04/25 09:19 Dose: 0.6 mg Gabapentin (Gabapentin 100 Mg Capsule) 100 mg PO TID [facility] Last Admin: 03/04/25 09:19 Dose: 100 mg Hydromorphone HCl (Hydromorphone Hcl 1 Mg/Ml Syringe) 1 mg IVPUSH Q4H PRN; Protocol PRN Reason: Pain, Severe (Pain Scale 7-10) Last Admin: 03/04/25 10:28 Dose: 1 mg Hydromorphone HCl (Hydromorphone Hcl 0.5 Mg/0.5 Ml Syringe) 0.5 mg IVPUSH Q3H PRN; Protocol PRN Reason: Pain, Moderate(Pain Scale 4-6) Magnesium Hydroxide (Milk Of Magnesia 30 Ml Oral.Susp) 30 ml PO DAILY PRN PRN Reason: Constipation Magnesium Oxide (Magnesium Oxide 400 Mg Tablet) 800 mg PO DAILY [facility] Last Admin: 03/04/25 09:19 Dose: 800 mg Melatonin (Melatonin 3 Mg Tablet) 6 mg PO BEDTIME PRN PRN Reason: Insomnia Mirtazapine (Mirtazapine 15 Mg Tablet) 15 mg PO BEDTIME [facility] Last Admin: 03/03/25 21:06 Dose: 15 mg Multivitamins/Vitamin C (Multivitamin Tablet) 1 tab PO DAILY [facility] Last Admin: 03/04/25 09:19 Dose: 1 tab Non-Formulary Medication (Magnesium Glycinate) 400 mg PO DAILY [facility] Ondansetron HCl (Ondansetron Odt 4 Mg Tab.Rapdis) 4 mg TRANSLINGU Q6H PRN PRN Reason: Nausea and Vomiting Last Admin: 03/03/25 20:49 Dose: 4 mg Pantoprazole Sodium (Pantoprazole Sodium 40 Mg/10 Ml Vial) 40 mg IVPUSH BID@0630,1630 [facility] Last Admin: 03/04/25 05:34 Dose: 40 mg Sodium Chloride (0.9 % Sodium Chloride Flush 3 Ml Syringe) 3 ml IVFLUSH QSHIFT [facility] Last Admin: 03/04/25 09:21 Dose: 3 ml Home Medications ?Medication ?Instructions ?Recorded ?Confirmed ?Last Taken ?Type mirtazapine 15 mg tablet 15 mg PO BEDTIME 11/30/23 03/01/25 03/19/24 09:00 History multivitamin with minerals-folic 1 tab PO DAILY 01/07/24 03/01/25 02/18/25 History acid 200 mcg chewable tablet (Multivitamin Gummies) carisoprodol 350 mg tablet 350 mg PO BEDTIME 03/19/24 03/01/25 03/19/24 09:00 History magnesium glycinate 400 mg PO DAILY 03/19/24 03/01/25 02/18/25 History ondansetron 4 mg disintegrating 4 mg PO Q8H PRN Nausea And Vomiting 01/15/25 03/01/25 02/18/25 History tablet amiodarone 200 mg tablet 200 mg PO DAILY 02/19/25 03/01/25 02/18/25 History apixaban 5 mg tablet (Eliquis) 5 mg PO BID 02/19/25 03/01/25 02/18/25 History colchicine 0.6 mg tablet 0.6 mg PO DAILY 02/19/25 03/01/25 02/18/25 History esomeprazole magnesium 20 mg 20 mg PO DAILY@0630 02/19/25 03/01/25 02/18/25 History capsule,delayed release (Nexium) gabapentin 100 mg capsule 100 mg PO Q8H 02/19/25 03/01/25 02/18/25 History Exam Height,Weight and Vital Signs: Height 5 ft 2 in Weight 63.503 kg Last Vital Signs Temp 98.8 F 03/04/25 11:16 Pulse 84 03/04/25 11:16 Resp 17 03/04/25 11:16 BP 109/67 03/04/25 11:16 Pulse Ox 95 03/04/25 11:16 O2 Del Method Room Air 03/04/25 11:16 Pertinent Lab Results Pertinent Lab Results: Laboratory Tests 02/28/25 02/28/25 02/28/25 12:50 19:47 21:16 WBC 12.1 H 9.8 RBC 3.04 L 2.73 L Hgb 8.9 L 8.1 L Hct 28.0 L 24.6 L MCV 92.1 90.1 MCH 29.3 29.7 MCHC 31.8 32.9 RDW 15.6 15.7 Plt Count 273 241 MPV 9.4 9.5 Immature Gran % (Auto) 0.4 0.5 H Neut % (Auto) 73.1 H 64.3 Lymph % (Auto) 14.6 L 21.8 [place] % (Auto) 9.3 9.6 Eos % (Auto) 1.8 3.1 Baso % (Auto) 0.8 0.7 Lymph # (Auto) 1.8 2.1 [place] # (Auto) 1.1 0.9 Eos # (Auto) 0.2 0.3 Baso # (Auto) 0.1 0.1 Abs Immat Gran (auto) 0.05 H 0.05 H Absolute Neuts (auto) 8.8 H 6.3 Absolute Nucleated RBC 0.000 0.000 Nucleated RBC % (auto) 0.0 0.0 PT 19.5 H D INR 1.7 H Sodium 134 L Potassium 2.8 L* Chloride 96 Carbon Dioxide 28 Anion Gap 13 BUN 10 Creatinine 0.66 Estim Creat Clear Calc 73.4 Estimated GFR > 60 Random Glucose 90 Lactic Acid 0.7 Uric Acid Calcium 8.1 L D Magnesium 1.5 L Total Bilirubin 0.4 Direct Bilirubin AST 46 H ALT < 6 Alkaline Phosphatase 156 H Troponin I High Sens 2.7 D B-Natriuretic Peptide Total Protein 7.7 Albumin 2.6 L Lipase 142 H Urine Color Urine Appearance Urine pH Ur Specific Elliott Urine Protein Urine Glucose (UA) Urine Ketones Urine Blood Urine Nitrite Ur Leukocyte Esterase Urine RBC Urine WBC Ur Squamous Epith Cells Urine Bacteria Hyaline Casts Granular Casts Stool Occult Blood Blood Type O Positive Antibody Screen NEGATIVE Crossmatch See Detail 02/28/25 03/01/25 03/01/25 21:50 01:14 03:58 WBC 10.0 RBC 2.59 L Hgb 7.7 L 7.6 L Hct 24.1 L 23.3 L MCV 90.0 MCH 29.3 MCHC 32.6 RDW 15.6 Plt Count 208 MPV 9.0 L Immature Gran % (Auto) 0.3 Neut % (Auto) 68.8 Lymph % (Auto) 18.2 L [place] % (Auto) 8.3 Eos % (Auto) 3.8 Baso % (Auto) 0.6 Lymph # (Auto) 1.8 [place] # (Auto) 0.8 Eos # (Auto) 0.4 Baso # (Auto) 0.1 Abs Immat Gran (auto) 0.03 Absolute Neuts (auto) 6.9 Absolute Nucleated RBC 0.000 Nucleated RBC % (auto) 0.0 PT INR Sodium 136 Potassium 3.1 L 3.0 L Chloride 102 Carbon Dioxide 25 Anion Gap 12 BUN 7 L Creatinine 0.57 Estim Creat Clear Calc 85.0 Estimated GFR > 60 Random Glucose 88 Lactic Acid Uric Acid 4.2 Calcium 7.4 L D Magnesium 1.5 L Total Bilirubin 0.3 Direct Bilirubin AST 38 H ALT < 6 Alkaline Phosphatase 125 H Troponin I High Sens B-Natriuretic Peptide 211 H Total Protein 6.4 L Albumin 2.1 L Lipase 96 H Urine Color Yellow Urine Appearance Clear Urine pH 6.0 Ur Specific Elliott >= 1.030 H Urine Protein 30 (1+) H Urine Glucose (UA) Negative Urine Ketones Trace Urine Blood Small (1+) H Urine Nitrite Negative Ur Leukocyte Esterase Negative Urine RBC 3-5 H Urine WBC 0-5 Ur Squamous Epith Cells 0-2 Urine Bacteria None Seen Hyaline Casts 3-5 Granular Casts Present Stool Occult Blood Blood Type Antibody Screen Crossmatch 03/01/25 03/02/25 03/03/25 17:37 03:45 06:42 WBC 9.7 10.4 RBC 2.54 L 3.47 L D Hgb 7.4 L 10.2 L D Hct 22.8 L 31.2 L D MCV 89.8 89.9 MCH 29.1 29.4 MCHC 32.5 32.7 RDW 15.7 15.7 Plt Count 163 176 MPV 8.8 L 10.0 Immature Gran % (Auto) Neut % (Auto) Lymph % (Auto) [place] % (Auto) Eos % (Auto) Baso % (Auto) Lymph # (Auto) [place] # (Auto) Eos # (Auto) Baso # (Auto) Abs Immat Gran (auto) Absolute Neuts (auto) Absolute Nucleated RBC 0.000 0.000 Nucleated RBC % (auto) 0.0 0.0 PT 17.5 H INR 1.5 H Sodium 139 138 Potassium 3.1 L 3.1 L Chloride 108 108 Carbon Dioxide 24 25 Anion Gap 10 L 8 L BUN 5 L 4 L Creatinine 0.61 0.58 Estim Creat Clear Calc 79.4 83.5 Estimated GFR > 60 > 60 Random Glucose 95 87 Lactic Acid Uric Acid Calcium 7.5 L 7.2 L Magnesium 1.5 L 1.6 Total Bilirubin 0.3 Direct Bilirubin 0.2 AST 40 H ALT < 6 Alkaline Phosphatase 150 H Troponin I High Sens B-Natriuretic Peptide Total Protein 6.2 L Albumin 2.0 L Lipase Urine Color Urine Appearance Urine pH Ur Specific [place] Urine Protein Urine Glucose (UA) Urine Ketones Urine Blood Urine Nitrite Ur Leukocyte Esterase Urine RBC Urine WBC Ur Squamous Epith Cells Urine Bacteria Hyaline Casts Granular Casts Stool Occult Blood POSITIVE Blood Type Antibody Screen Crossmatch 03/04/25 06:15 WBC 12.4 H RBC 3.69 L Hgb 10.6 L Hct 33.2 L MCV 90.0 MCH 28.7 MCHC 31.9 RDW 15.4 Plt Count 190 MPV 9.9 Immature Gran % (Auto) Neut % (Auto) Lymph % (Auto) [place] % (Auto) Eos % (Auto) Baso % (Auto) Lymph # (Auto) [place] # (Auto) Eos # (Auto) Baso # (Auto) Abs Immat Gran (auto) Absolute Neuts (auto) Absolute Nucleated RBC 0.000 Nucleated RBC % (auto) 0.0 PT INR Sodium 134 L Potassium 3.5 Chloride 105 Carbon Dioxide 24 Anion Gap 9 L BUN 5 L Creatinine 0.59 Estim Creat Clear Calc 82.1 Estimated GFR > 60 Random Glucose 73 Lactic Acid Uric Acid Calcium 7.5 L Magnesium 1.5 L Total Bilirubin Direct Bilirubin AST ALT Alkaline Phosphatase Troponin I High Sens B-Natriuretic Peptide Total Protein Albumin Lipase Urine Color Urine Appearance Urine pH Ur Specific [place] Urine Protein Urine Glucose (UA) Urine Ketones Urine Blood Urine Nitrite Ur Leukocyte Esterase Urine RBC Urine WBC Ur Squamous Epith Cells Urine Bacteria Hyaline Casts Granular Casts Stool Occult Blood Blood Type Antibody Screen Crossmatch Airway Mallampati Class: II TM Dist: >3cm Loose/Missing/Broken Teeth: No Heart: RRR Lungs: CTA Assessment and Plan Assessment Anesthesia Assessment: Anesthesia Plan Discussed and Chart Reviewed Final Anesthetic Review Family History of Problems with Anesthesia: No History of Problems with Anesthesia: No NPO: Yes ASA Class: III Final Preanesthetic Review: Meds/Allgs Chart Reviewed, Consent Obtained/Reviewed and Anes Risks/Benef Reviewed Procedure Risk: Low Anesthetic Plan Anesthetic Plan: MAC: Disposition: Standard PACU
--- NOTE | 2025-03-04 13:48 | P.PNGI_ITS ---
Subjective Subjective Date of Service: 03/04/25 Interval History: still has some mild vaginal spotting no rectal bleeding no abdominal pain relaxed otherwise Critical Care Time (minutes): 0 Physical Exam 2 Vital Signs: Vital Signs: Last Vital Signs Temp 98.8 F 03/04/25 11:16 Pulse 84 03/04/25 11:16 Resp 17 03/04/25 11:16 BP 109/67 03/04/25 11:16 Pulse Ox 95 03/04/25 11:16 O2 Del Method Room Air 03/04/25 11:16 BMI result Body Mass Index 25.6 EXAM: GENERAL: The patient is frail VITAL SIGNS:see workflow HEENT: Nonicteric sclerae, PERRLA, EOMI. Oropharynx clear. Moist mucous membranes. Conjunctivae appear well perfused. No thyroid mass. CHEST: Chest wall is nontender. HEART: Regular rate and rhythm without murmurs. LUNGS: Clear to auscultation bilaterally. ABDOMEN: Soft, positive bowel sounds, nontender, no organomegaly.no flank tenderness--stoma bag noted SKIN: No rash, no excessive bruising, petechiae, or purpura. NEUROLOGIC: Cranial nerves II-XII intact without motor/sensory deficit. Psych: normal affect Objective Data Labs 03/04/25 06:15 03/04/25 06:15 Labs: Laboratory Results - last 24 hr 03/04/25 06:15 WBC 12.4 H RBC 3.69 L Hgb 10.6 L Hct 33.2 L MCV 90.0 MCH 28.7 MCHC 31.9 RDW 15.4 Plt Count 190 MPV 9.9 Absolute Nucleated RBC 0.000 Nucleated RBC % (auto) 0.0 Sodium 134 L Potassium 3.5 Chloride 105 Carbon Dioxide 24 Anion Gap 9 L BUN 5 L Creatinine 0.59 Estim Creat Clear Calc 82.1 Estimated GFR > 60 Random Glucose 73 Calcium 7.5 L Magnesium 1.5 L Microbiology Microbiology Results: Microbiology 02/28/25 22:40 Blood - Central Line Blood Culture - Preliminary No growth after 48 hours. 02/28/25 22:40 Blood - Central Line Blood Culture - Preliminary No growth after 48 hours. Procedures Date of Service Date of Service: 03/04/25 Progress Note: A&P Assessment and plan (1) Rectal bleeding: Status: Acute Assessment and Plan: 1/ Rectal and vaginal bleeding whilst on eliquis, has fibroid, ? colovaginal fistula, ddx: diverting colitis, hemorrhoidal PLAN: 1/ endoscope exam of rectal stump today Time Spent With Patient Time: Total time managing care of this patient today ____ minutes. Quality Stroke Does the patient have a stroke diagnosis?: No Reason for No Anti-thrombotic by Day Two: Contraindicated VTE Prior VTE?: No VTE Risk Level:: Surgical - high VTE Device Contraindication: N/A - Device Ordered VTE Drug Contraindication: Treatment Not Indicated
--- NOTE | 2025-03-04 14:15 | W.PM.OPN ---
Operative Note Operative Note Date of Service: 03/04/25 Narrative: Procedure Description: sigmoidoscopy Indication: rectal bleeding Anesthesia: MAC Sigmoidoscopy Instrument: Upper endoscope Colonoscopy Monitoring: Vital signs and clinical assessment, continuous EKG monitoring, Pulse oximetry, Carbon Dioxide monitoring and blood pressure monitoring were done throughout the procedure. Procedure: The patient was placed in the left lateral decubitis position and pre-procedure medications were administered. After a digital rectal examination of the ano-rectum, the video colonoscope was inserted into the rectum and advanced through the colon to the sigmoid colon The scope was slowly withdrawn in a retrograde panoramic fashion and the colon mucosa was carefully examined . Findings and interventions are described below. 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
--- NOTE | 2025-03-04 15:12 | MHC.CM.PN ---
EMR REVIEWED, PT DECLINED BY ALL 3 LOCAL AR'S, CM ATTEMPTED TO MEET W/PT TO DISCUSS SNF PREFERENCES HOWEVER PT OFF UNIT FOR PROCEDURE, BROAD LOCAL REF PLACED, CM WILL CONT TO FOLLOW DC NEEDS.
[2025-03-05] VITALS (7 sets, daily range): BP systolic 97–111; BP diastolic 53–67; PULSE 79–105; RESP 16–18; TEMP 36.3–37.2; O2SAT 94–97
[2025-03-05 06:51] LABS: MANUAL DIFF FLAG NO
[2025-03-05 07:01] LABS: Hematocrit 32.0 % (37.0-47.0); Hemoglobin 10.3 g/dl (12.0-16.0); Imm Gran Abs Auto 0.06 X10*3/uL (0.00-0.03); Imm Gran Pct Auto 0.5 % (0.0-0.4); Lymphocytes Absolute Auto 1.8 X10*3/uL (1.2-4.9); Mean Corpuscular HGB Conc 32.2 g/dl (31.0-35.0); Mean Corpuscular Hemoglobin 29.0 pg (27.0-33.0); Mean Corpuscular Volume 90.1 fL (80.0-98.0); NRBC Abs Auto 0.000 X10*3/uL (0.0-0.012); NRBC Pct Auto 0.0 /100WBC (0.0-0.2); Platelet Count 175 X10*3/uL (160-400); Red Blood Count 3.55 X10*6/uL (4.20-5.50); White Blood Count 12.9 X10*3/uL (4.8-10.8)
[2025-03-05 07:14] LABS: Alanine Aminotransferase < 6 U/L (0-31); Albumin Level 1.8 g/dL (3.5-5.0); Alkaline Phosphatase 158 U/L (39-117); Anion Gap 10 (12-20); Aspartate Amino Transferase 49 U/L (5-31); Blood Urea Nitrogen 8 mg/dL (9-16); Calcium 7.5 mg/dL (8.4-10.2); Carbon Dioxide 22 mmol/L (22-29); Chloride 105 mmol/L (96-108); Creatinine Clr Calc Pharmacy 86.4; Estimated Glomerular Filt Rate > 60; Potassium 3.1 mmol/L (3.3-5.1); Sodium 134 mmol/L (135-145); Total Protein 6.1 g/dL (6.5-8.0)
[2025-03-05] MEDS: 0.9 % Sodium Chloride Flush 3 ML SYRINGE IVFLUSH ×2 (09:09→17:16)
--- NOTE | 2025-03-05 09:52 | HO.POSTANES ---
Post Anesthesia Evaluation Post Anesthesia Evaluation Date of Service: 03/04/25 Vital Signs: Vital Signs Temp Pulse Resp BP Pulse Ox O2 Del Method 03/05/25 07:03 98.9 F 80 18 106/58 L 95 Room Air 03/05/25 03:32 97.4 F 92 16 111/59 L 96 Room Air 03/05/25 00:00 97.5 F 105 H 16 101/59 L 97 Room Air Anesthesia: Monitored Mental Status: Awake Pain Control: Satisfactory Nausea/Vomiting: None Hydration: Adequate Anesthesia-Related Issues: No Anes. Related Issues
--- NOTE | 2025-03-05 10:26 | MHC.CM.PN ---
CM met with Patient at bedside to discuss PT's recommendation for STR. Patient states that she refuses to be dc'd until she is seen by ORCHESTRATOR/Dr. Hillman. ARTEM has relayed this message to DR. Mccloud, who will meet with Patient shortly. CM will follow.
--- NOTE | 2025-03-05 11:19 | MHC.CM.PN ---
Per Patient's request, CM has done a broad snf search and provided Patient with the names of the 8 accepting bed offers and the ratings for each facility.CM will follow.
--- NOTE | 2025-03-05 15:50 | P.PNIM_ITS ---
Subjective Subjective Date of Service: 03/05/25 Interval History: Very discouraged with prolonged hospitalization. Hemoglobin stable but off Eliquis Review of Systems Denies chest pain Denies shortness of breath Denies nausea vomiting diarrhea Denies fever chills Physical Exam 2 Vital Signs: Vital Signs: Last Vital Signs Temp 97.9 F 03/05/25 15:26 Pulse 80 03/05/25 15:26 Resp 18 03/05/25 15:26 BP 106/59 L 03/05/25 15:26 Pulse Ox 97 03/05/25 15:26 O2 Del Method Room Air 03/05/25 11:25 BMI result Body Mass Index 25.6 Const: Other: Awake alert no acute distress Resp: Other: Clear to auscultation bilaterally no rales rhonchi or wheezes Cardio: Other: No S4; positive S1-S2; no S3 murmurs rubs or gallops GI: Other: Soft positive bowel sounds ileostomy in place Extrem: Other: No edema bilaterally Objective Data Active Medications Acetaminophen (Acetaminophen 325 Mg Tablet) 975 mg PO Q6H PRN PRN Reason: Pain, Mild 1-3,fever,headache Last Admin: 03/02/25 12:20 Dose: 975 mg Documented By: AMAURI Albuterol/Ipratropium (Albuterol/Iprat 2.5/0.5mg 3 Ml Ampul.Neb) 3 ml INHALE Q4H PRN PRN Reason: Shortness of Breath/Wheezing Amiodarone HCl (Amiodarone Hcl 200 Mg Tablet) 200 mg PO DAILY [facility] Last Admin: 03/05/25 09:10 Dose: 200 mg Documented By: DAMON Atorvastatin Calcium (Atorvastatin Calcium 20 Mg Tablet) 20 mg PO BEDTIME [facility] Last Admin: 03/04/25 20:31 Dose: 20 mg Documented By: ALEXSANDER Calcium Carbonate (Calcium Carbonate 750 Mg Tab.Chew) 750 mg PO Q4H PRN PRN Reason: Heartburn Carisoprodol (Carisoprodol 350 Mg Tablet) 350 mg PO BEDTIME [facility] Last Admin: 03/04/25 20:31 Dose: 350 mg Documented By: ALEXSANDER Carvedilol (Carvedilol 6.25 Mg Tablet) 6.25 mg PO BID [facility]; Protocol Last Admin: 03/05/25 09:10 Dose: 6.25 mg Documented By: DAMON Colchicine (Colchicine 0.6 Mg Tablet) 0.6 mg PO DAILY [facility] Last Admin: 03/05/25 09:10 Dose: 0.6 mg Documented By: DAMON Gabapentin (Gabapentin 100 Mg Capsule) 100 mg PO TID [facility] Last Admin: 03/05/25 09:10 Dose: 100 mg Documented By: DAMON Hydromorphone HCl (Hydromorphone Hcl 1 Mg/Ml Syringe) 1 mg IVPUSH Q4H PRN; Protocol PRN Reason: Pain, Severe (Pain Scale 7-10) Last Admin: 03/05/25 06:45 Dose: 1 mg Documented By: CASEYZEJackie Hydromorphone HCl (Hydromorphone Hcl 0.5 Mg/0.5 Ml Syringe) 0.5 mg IVPUSH Q3H PRN; Protocol PRN Reason: Pain, Moderate(Pain Scale 4-6) Last Admin: 03/04/25 20:30 Dose: 0.5 mg Documented By: ALEXSANDER Magnesium Hydroxide (Milk Of Magnesia 30 Ml Oral.Susp) 30 ml PO DAILY PRN PRN Reason: Constipation Magnesium Oxide (Magnesium Oxide 400 Mg Tablet) 800 mg PO DAILY [facility] Last Admin: 03/05/25 08:55 Dose: 800 mg Documented By: DAMON Melatonin (Melatonin 3 Mg Tablet) 6 mg PO BEDTIME PRN PRN Reason: Insomnia Mirtazapine (Mirtazapine 15 Mg Tablet) 15 mg PO BEDTIME [facility] Last Admin: 03/04/25 20:31 Dose: 15 mg Documented By: ALEXSANDER Multivitamins/Vitamin C (Multivitamin Tablet) 1 tab PO DAILY [facility] Last Admin: 03/05/25 09:10 Dose: 1 tab Documented By: DAMON Ondansetron HCl (Ondansetron Odt 4 Mg Tab.Rapdis) 4 mg TRANSLINGU Q6H PRN PRN Reason: Nausea and Vomiting Last Admin: 03/03/25 20:49 Dose: 4 mg Documented By: EUSEBIO Pantoprazole Sodium (Pantoprazole Sodium 40 Mg/10 Ml Vial) 40 mg IVPUSH BID@0630,1630 [facility] Last Admin: 03/05/25 06:45 Dose: 40 mg Documented By: ALEXSANDER Sodium Chloride (0.9 % Sodium Chloride Flush 3 Ml Syringe) 3 ml IVFLUSH QSHIFT [facility] Last Admin: 03/05/25 09:09 Dose: 3 ml Documented By: DAMON Labs 03/05/25 06:45 03/05/25 06:45 Labs: Laboratory Results - last 24 hr 03/05/25 06:45 MCV 90.1 MCH 29.0 MCHC 32.2 RDW 15.2 Plt Count 175 MPV 9.5 Immature Gran % (Auto) 0.5 H Neut % (Auto) 75.6 H Lymph % (Auto) 13.6 L [place] % (Auto) 6.9 Eos % (Auto) 2.6 Baso % (Auto) 0.8 Lymph # (Auto) 1.8 [place] # (Auto) 0.9 Eos # (Auto) 0.3 Baso # (Auto) 0.1 Abs Immat Gran (auto) 0.06 H Absolute Neuts (auto) 9.7 H Absolute Nucleated RBC 0.000 Nucleated RBC % (auto) 0.0 Anion Gap 10 L Estim Creat Clear Calc 86.4 Estimated GFR > 60 Fasting Glucose 83 Calcium 7.5 L Total Bilirubin 0.3 AST 49 H ALT < 6 Alkaline Phosphatase 158 H Total Protein 6.1 L Albumin 1.8 L Assessment and Plan (1) Rectal bleeding: Status: Acute (2) Anemia: Status: Acute Plan 65yo F with HTN, HLD, CAD, CHF, pAF on Eliquis, hx pancreatitis, recent subtotal colectomy/hernia repair at [facility] on 01/07/2025 with resultant ileostomy bag followed by admission to the ICU at [facility] from 01/20-01/25 for pulmonary edema/pericardial effusion/anemia/new onset a flutter/intra-abdominal abscess/Finegoldia bacteremia after which patient was transferred to [facility] where she has abscesses drained; finished a course of antibiotics and discharged home on 02/17/25. Presented back to the ER on 02/18/25 overnight with a chief complaint of abdominal pain with question of cholecystitis ruled out, discharged home 02/27. Re-admitted 02/28 for abdominal pain and nausea along with vaginal spotting and BRBPR 1.Acute/chronic anemia...BRBPR -sigmoid exam results noted - hold Eliquis at this time follow CBC -hemoglobin stable -recommendations are closure of rectal aspect of the fistula; however fibroid still the cause of bleeding of bleeding. In absence of paroxysmal atrial fibrillation, could consider hormonal therapy however given age and history of paroxysmal AFib hormonal therapy would likely cause more hypercoagulable state. Discussed with GI does not feel closure would be of any benefit. Recommends IR evaluation for possible embolism of bleeding fibroid 2.HypoK/Mag - replete IV -follow renal/divalent 3.Pericardial effusion - continue colchicine 4.CAD -stable and well compensated at this time In my clinical judgment, the patient requires continued inpatient hospitalization for the following reasons: specialist consultation for GI bleeding Quality Stroke Does the patient have a stroke diagnosis?: No Reason for No Anti-thrombotic by Day Two: Contraindicated VTE Prior VTE?: No VTE Risk Level:: Surgical - high VTE Device Contraindication: N/A - Device Ordered VTE Drug Contraindication: Treatment Not Indicated
--- NOTE | 2025-03-05 19:24 | PC.NURSE ---
late entry- for 03/01/25 pt medicated with prn dilaudid 1mg for reported 04/13 pain. medication pulled at 0401am medication given @ 0405. medication scanned at time of administration. medication scan did not save in computer.
[2025-03-06] VITALS (7 sets, daily range): BP systolic 89–125; BP diastolic 54–64; PULSE 66–89; RESP 16–18; TEMP 36–38; O2SAT 95–96
[2025-03-06 09:27] LABS: MANUAL DIFF FLAG NO
[2025-03-06 09:28] LABS: Hematocrit 32.3 % (37.0-47.0); Hemoglobin 10.6 g/dl (12.0-16.0); Imm Gran Abs Auto 0.07 X10*3/uL (0.00-0.03); Imm Gran Pct Auto 0.6 % (0.0-0.4); Lymphocytes Absolute Auto 1.6 X10*3/uL (1.2-4.9); Mean Corpuscular HGB Conc 32.8 g/dl (31.0-35.0); Mean Corpuscular Hemoglobin 29.2 pg (27.0-33.0); Mean Corpuscular Volume 89.0 fL (80.0-98.0); NRBC Abs Auto 0.000 X10*3/uL (0.0-0.012); NRBC Pct Auto 0.0 /100WBC (0.0-0.2); Platelet Count 181 X10*3/uL (160-400); Red Blood Count 3.63 X10*6/uL (4.20-5.50); White Blood Count 12.5 X10*3/uL (4.8-10.8)
--- NOTE | 2025-03-06 10:55 | MHC.CM.PN ---
Per MD in [facility], Patient is not yet medically cleared for dc and may need to remain hospitalized through the weekend. STR is the goal and CM will continue to follow.
[2025-03-06] MEDS: 0.9 % Sodium Chloride Flush 3 ML SYRINGE IVFLUSH ×3 (11:16→19:42)
--- NOTE | 2025-03-06 17:22 | HO.PM.IMPN ---
Subjective Subjective Date of Service: 03/06/25 Interval History: Complaining of low back pain. Hemoglobin stable no acute bleeding overnight Review of Systems Denies chest pain Denies shortness of breath Denies nausea vomiting diarrhea Denies fever chills Physical Exam Vital Signs: Vital Signs: Last Vital Signs Temp 98.1 F 03/06/25 15:28 Pulse 83 03/06/25 15:28 Resp 16 03/06/25 15:28 BP 98/56 L 03/06/25 15:28 Pulse Ox 95 03/06/25 15:28 O2 Del Method Room Air 03/06/25 15:28 BMI result Body Mass Index 25.6 Const: Other: Awake alert no acute distress Resp: Other: Clear to auscultation bilaterally no rales rhonchi or wheezes Cardio: Other: No S4; positive S1-S2; no S3 murmurs rubs or gallops GI: Other: Soft positive bowel sounds ileostomy in place Extrem: Other: No edema bilaterally Objective Data Active Medications Acetaminophen (Acetaminophen 325 Mg Tablet) 975 mg PO Q6H PRN PRN Reason: Pain, Mild 1-3,fever,headache Last Admin: 03/02/25 12:20 Dose: 975 mg Documented By: AMAURI Albuterol/Ipratropium (Albuterol/Iprat 2.5/0.5mg 3 Ml Ampul.Neb) 3 ml INHALE Q4H PRN PRN Reason: Shortness of Breath/Wheezing Amiodarone HCl (Amiodarone Hcl 200 Mg Tablet) 200 mg PO DAILY [facility] Last Admin: 03/06/25 10:39 Dose: 200 mg Documented By: LOUISA Atorvastatin Calcium (Atorvastatin Calcium 20 Mg Tablet) 20 mg PO BEDTIME [facility] Last Admin: 03/05/25 20:35 Dose: 20 mg Documented By: KIKA-WILEYZEB Calcium Carbonate (Calcium Carbonate 750 Mg Tab.Chew) 750 mg PO Q4H PRN PRN Reason: Heartburn Carvedilol (Carvedilol 6.25 Mg Tablet) 6.25 mg PO BID [facility]; Protocol Last Admin: 03/06/25 10:36 Dose: 6.25 mg Documented By: LOUISA Colchicine (Colchicine 0.6 Mg Tablet) 0.6 mg PO DAILY [facility] Last Admin: 03/06/25 10:39 Dose: 0.6 mg Documented By: LOUISA Gabapentin (Gabapentin 100 Mg Capsule) 100 mg PO TID [facility] Last Admin: 03/06/25 14:31 Dose: 100 mg Documented By: LOUISA Hydromorphone HCl (Hydromorphone Hcl 1 Mg/Ml Syringe) 1 mg IVPUSH Q4H PRN; Protocol PRN Reason: Pain, Severe (Pain Scale 7-10) Last Admin: 03/06/25 14:32 Dose: 1 mg Documented By: LOUISA Magnesium Hydroxide (Milk Of Magnesia 30 Ml Oral.Susp) 30 ml PO DAILY PRN PRN Reason: Constipation Magnesium Oxide (Magnesium Oxide 400 Mg Tablet) 800 mg PO DAILY [facility] Last Admin: 03/06/25 10:39 Dose: 800 mg Documented By: LOUISA Melatonin (Melatonin 3 Mg Tablet) 6 mg PO BEDTIME PRN PRN Reason: Insomnia Mirtazapine (Mirtazapine 15 Mg Tablet) 15 mg PO BEDTIME [facility] Last Admin: 03/05/25 20:35 Dose: 15 mg Documented By: N-JOZEB Multivitamins/Vitamin C (Multivitamin Tablet) 1 tab PO DAILY [facility] Last Admin: 03/06/25 10:39 Dose: 1 tab Documented By: LOUISA Ondansetron HCl (Ondansetron Odt 4 Mg Tab.Rapdis) 4 mg TRANSLINGU Q6H PRN PRN Reason: Nausea and Vomiting Last Admin: 03/03/25 20:49 Dose: 4 mg Documented By: EUSEBIO Sodium Chloride (0.9 % Sodium Chloride Flush 3 Ml Syringe) 3 ml IVFLUSH QSHIFT [facility] Last Admin: 03/06/25 14:32 Dose: 3 ml Documented By: LOUISA Labs 03/06/25 09:20 03/05/25 06:45 Labs: Laboratory Results - last 24 hr 03/06/25 09:20 MCV 89.0 MCH 29.2 MCHC 32.8 RDW 15.0 Plt Count 181 MPV 9.1 L Immature Gran % (Auto) 0.6 H Neut % (Auto) 75.7 H Lymph % (Auto) 12.6 L [place] % (Auto) 7.9 Eos % (Auto) 2.6 Baso % (Auto) 0.6 Lymph # (Auto) 1.6 [place] # (Auto) 1.0 Eos # (Auto) 0.3 Baso # (Auto) 0.1 Abs Immat Gran (auto) 0.07 H Absolute Neuts (auto) 9.5 H Absolute Nucleated RBC 0.000 Nucleated RBC % (auto) 0.0 Microbiology Microbiology Results: Microbiology 02/28/25 22:40 Blood Culture - Final Blood - Central Line No growth after 5 days. 02/28/25 22:40 Blood Culture - Final Blood - Central Line No growth after 5 days. Assessment and Plan (1) Anemia: Status: Acute (2) Postmenopausal bleeding: Status: Acute Plan 65yo F with HTN, HLD, CAD, CHF, pAF on Eliquis, hx pancreatitis, recent [place] [facility] [place] with resultant ileostomy bag followed by admission to the ICU at [facility] from 01/20-01/25 for pulmonary edema/pericardial effusion/anemia/new onset a flutter/intra-abdominal abscess/Finegoldia bacteremia after which patient was transferred to [facility] where she has abscesses drained; finished a course of antibiotics and discharged home on 02/17/25. Presented back to the ER on 02/18/25 overnight with a chief complaint of abdominal pain with question of cholecystitis ruled out, discharged home 02/27. Re-admitted 02/28 for abdominal pain and nausea along with vaginal spotting and BRBPR 1.Acute/chronic anemia...BRBPR -sigmoid exam results noted -hold Eliquis at this time follow CBC -hemoglobin stable -Interventional Radiology. . . Uterine artery embolization 03/10/2025 2.HypoK/Mag - replete IV... Has central line -follow renal/divalent 3.Pericardial effusion - continue colchicine 4.CAD -stable and well compensated at this time Full code Boots Patient requires ongoing hospitalization for recurrent vaginal bleeding in the backdrop of AFib requiring Eliquis. Patient at high risk of outpatient failure if discharge before uterine artery embolization. Scheduled for 03/10/2025. Medically necessary to remain in hospital setting for monitoring of blood count and heart rate and rhythm Quality Stroke Does the patient have a stroke diagnosis?: No Reason for No Anti-thrombotic by Day Two: Contraindicated VTE Prior VTE?: No VTE Risk Level:: Surgical - high VTE Device Contraindication: N/A - Device Ordered VTE Drug Contraindication: Treatment Not Indicated
[2025-03-06] MEDS: Potassium Chloride/H20 10 MEQ/100 ML PIGGYBACK 100 MEQ IV ×4 (18:06→21:58)
--- NOTE | 2025-03-06 18:57 | P.CDIM_ITS ---
PROVIDER RESPONSE TEXT: To clarify, the appropriate diagnosis supported by the clinical indicators: Acute blood loss anemia QUERY TEXT: PHYSICIAN'S DOCUMENTATION REQUEST Date of Query: 03/05/2025 10:46 AM EDT Patient Name: Kia Phelps Admit Date: 03/01/2025 Dear Nitin Mccloud DO, A review of the medical record indicates additional documentation may be needed. Please review below and update the documentation accordingly. Clinical Indicators: Acute/chronic anemia H/H: 2.2 BRBPR, vaginal spotting hold Eliquis transfusion pRBCs Based on the above, could you clarify which of the following is the most likely type of anemia you are evaluating, treating, and/or monitoring? Acute blood loss anemia Anemia due to anti-coagulant use Other (explain) Clinically unable to determine (explain) Thank you, Jenna Cristobal RN Use of terms such as suspected, likely, concern for, or probable (associated with a specific diagnosis that is being evaluated, monitored, or treated as if it exists) are acceptable and can be coded in the inpatient setting, when documented at the time of discharge. Please use your independent medical judgment in providing your response. THIS QUERY IS PART OF THE PERMANENT MEDICAL RECORD
[2025-03-07 03:09] VITALS: BP 108/55; PULSE 81; RESP 16; TEMP 36.8; O2SAT 99
[2025-03-07 05:54] LABS: MANUAL DIFF FLAG NO
[2025-03-07 06:11] LABS: Alanine Aminotransferase 9 U/L (0-31); Albumin Level 1.9 g/dL (3.5-5.0); Alkaline Phosphatase 166 U/L (39-117); Anion Gap 9 (12-20); Aspartate Amino Transferase 73 U/L (5-31); Blood Urea Nitrogen 6 mg/dL (9-16); Calcium 7.0 mg/dL (8.4-10.2); Carbon Dioxide 24 mmol/L (22-29); Chloride 106 mmol/L (96-108); Creatinine Clr Calc Pharmacy 96.9; Estimated Glomerular Filt Rate > 60; Potassium 3.4 mmol/L (3.3-5.1); Sodium 136 mmol/L (135-145); Total Protein 6.3 g/dL (6.5-8.0)
[2025-03-07 06:58] LABS: Hematocrit 29.9 % (37.0-47.0); Hemoglobin 9.7 g/dl (12.0-16.0); Imm Gran Abs Auto 0.05 X10*3/uL (0.00-0.03); Imm Gran Pct Auto 0.4 % (0.0-0.4); Lymphocytes Absolute Auto 1.6 X10*3/uL (1.2-4.9); Mean Corpuscular HGB Conc 32.4 g/dl (31.0-35.0); Mean Corpuscular Hemoglobin 29.3 pg (27.0-33.0); Mean Corpuscular Volume 90.3 fL (80.0-98.0); NRBC Abs Auto 0.000 X10*3/uL (0.0-0.012); NRBC Pct Auto 0.0 /100WBC (0.0-0.2); Platelet Count 180 X10*3/uL (160-400); Red Blood Count 3.31 X10*6/uL (4.20-5.50); White Blood Count 12.0 X10*3/uL (4.8-10.8)
[2025-03-07 07:40] VITALS: BP 118/59; PULSE 84; RESP 18; TEMP 36.3; O2SAT 96
[2025-03-07] MEDS: Albumin Human 25 % 100 ML IV ×3 (08:38→19:36)
[2025-03-07] MEDS: 0.9 % Sodium Chloride Flush 3 ML SYRINGE IVFLUSH ×3 (08:39→19:45)
[2025-03-07 11:37] VITALS: BP 121/61; PULSE 82; RESP 18; TEMP 37.1; O2SAT 96
--- NOTE | 2025-03-07 13:04 | P.PNIM_ITS ---
Subjective Subjective Date of Service: 03/07/25 Interval History: No acute issues overnight. No further vaginal bleeding Review of Systems Denies chest pain Denies shortness of breath Denies nausea vomiting diarrhea Denies fever chills Physical Exam 2 Vital Signs: Vital Signs: Last Vital Signs Temp 98.7 F 03/07/25 11:37 Pulse 82 03/07/25 11:37 Resp 18 03/07/25 11:37 BP 121/61 03/07/25 11:37 Pulse Ox 96 03/07/25 11:37 O2 Del Method Room Air 03/07/25 11:37 BMI result Body Mass Index 25.6 Const: Other: Awake alert no acute distress Resp: Other: Clear to auscultation bilaterally no rales rhonchi or wheezes Cardio: Other: No S4; positive S1-S2; no S3 murmurs rubs or gallops GI: Other: Soft positive bowel sounds ileostomy in place Extrem: Other: No edema bilaterally Objective Data Active Medications Acetaminophen (Acetaminophen 325 Mg Tablet) 975 mg PO Q6H PRN PRN Reason: Pain, Mild 1-3,fever,headache Last Admin: 03/02/25 12:20 Dose: 975 mg Documented By: AMAURI Albuterol/Ipratropium (Albuterol/Iprat 2.5/0.5mg 3 Ml Ampul.Neb) 3 ml INHALE Q4H PRN PRN Reason: Shortness of Breath/Wheezing Amiodarone HCl (Amiodarone Hcl 200 Mg Tablet) 200 mg PO DAILY [facility] Last Admin: 03/07/25 08:39 Dose: 200 mg Documented By: EMA Atorvastatin Calcium (Atorvastatin Calcium 20 Mg Tablet) 20 mg PO BEDTIME [facility] Last Admin: 03/06/25 19:37 Dose: 20 mg Documented By: JOSE Calcium Carbonate (Calcium Carbonate 750 Mg Tab.Chew) 750 mg PO Q4H PRN PRN Reason: Heartburn Carisoprodol (Carisoprodol 350 Mg Tablet) 350 mg PO BEDTIME [facility] Last Admin: 03/06/25 20:47 Dose: 350 mg Documented By: JOSE Carvedilol (Carvedilol 6.25 Mg Tablet) 6.25 mg PO BID [facility]; Protocol Last Admin: 03/07/25 08:39 Dose: 6.25 mg Documented By: EMA Colchicine (Colchicine 0.6 Mg Tablet) 0.6 mg PO DAILY [facility] Last Admin: 03/07/25 08:39 Dose: 0.6 mg Documented By: EMA Gabapentin (Gabapentin 100 Mg Capsule) 100 mg PO TID [facility] Last Admin: 03/07/25 08:39 Dose: 100 mg Documented By: EMA Hydromorphone HCl (Hydromorphone Hcl 1 Mg/Ml Syringe) 1 mg IVPUSH Q4H PRN; Protocol PRN Reason: Pain, Severe (Pain Scale 7-10) Last Admin: 03/07/25 08:38 Dose: 1 mg Documented By: EMA Sodium Chloride (Ns) 1,000 mls @ 100 mls/hr IVCONT .Q10H [facility] Last Admin: 03/07/25 04:10 Dose: 100 mls/hr Documented By: JOSE Albumin Human (Kedbumin 25 %) 100 mls @ 100 mls/hr IV Q6H [facility] Stop: 03/08/25 02:59 Last Infusion: 03/07/25 09:38 Dose: Infused Documented By: EMA Magnesium Hydroxide (Milk Of Magnesia 30 Ml Oral.Susp) 30 ml PO DAILY PRN PRN Reason: Constipation Magnesium Oxide (Magnesium Oxide 400 Mg Tablet) 800 mg PO DAILY [facility] Last Admin: 03/07/25 08:39 Dose: 800 mg Documented By: EMA Melatonin (Melatonin 3 Mg Tablet) 6 mg PO BEDTIME PRN PRN Reason: Insomnia Mirtazapine (Mirtazapine 15 Mg Tablet) 15 mg PO BEDTIME [facility] Last Admin: 03/06/25 19:37 Dose: 15 mg Documented By: JOSE Multivitamins/Vitamin C (Multivitamin Tablet) 1 tab PO DAILY [facility] Last Admin: 03/07/25 08:39 Dose: 1 tab Documented By: EMA Ondansetron HCl (Ondansetron Odt 4 Mg Tab.Rapdis) 4 mg TRANSLINGU Q6H PRN PRN Reason: Nausea and Vomiting Last Admin: 03/03/25 20:49 Dose: 4 mg Documented By: EUSEBIO Sodium Chloride (0.9 % Sodium Chloride Flush 3 Ml Syringe) 3 ml IVFLUSH QSHIFT [facility] Last Admin: 03/07/25 08:39 Dose: 3 ml Documented By: EMA Labs 03/07/25 05:45 03/07/25 05:45 Labs: Laboratory Results - last 24 hr 03/07/25 05:45 MCV 90.3 MCH 29.3 MCHC 32.4 RDW 15.0 Plt Count 180 MPV 9.8 Immature Gran % (Auto) 0.4 Neut % (Auto) 73.9 H Lymph % (Auto) 13.7 L [place] % (Auto) 8.4 Eos % (Auto) 2.8 Baso % (Auto) 0.8 Lymph # (Auto) 1.6 [place] # (Auto) 1.0 Eos # (Auto) 0.3 Baso # (Auto) 0.1 Abs Immat Gran (auto) 0.05 H Absolute Neuts (auto) 8.8 H Absolute Nucleated RBC 0.000 Nucleated RBC % (auto) 0.0 Anion Gap 9 L Estim Creat Clear Calc 96.9 Estimated GFR > 60 Fasting Glucose 77 Calcium 7.0 L D Total Bilirubin 0.4 AST 73 H ALT 9 Alkaline Phosphatase 166 H Total Protein 6.3 L Albumin 1.9 L Assessment and Plan (1) Anemia: Status: Acute (2) Postmenopausal bleeding: Status: Acute Plan 65yo F with HTN, HLD, CAD, CHF, pAF on Eliquis, hx pancreatitis, recent subtotal colectomy/hernia repair [place] [facility] on 01/07/2025 with resultant ileostomy bag followed by admission to the ICU at [facility] from 01/20-01/25 for pulmonary edema/pericardial effusion/anemia/new onset a flutter/intra-abdominal abscess/Fine[place]ia bacteremia after which patient was transferred to [facility] where she has abscesses drained; finished a course of antibiotics and discharged home on 02/17/25. Presented back to the ER on 02/18/25 overnight with a chief complaint of abdominal pain with question of cholecystitis ruled out, discharged home 02/27. Re-admitted 02/28 for abdominal pain and nausea along with vaginal spotting and BRBPR 1.Acute/chronic anemia...BRBPR -sigmoid exam results noted.. Likely related to uterine fibroids -hold Eliquis at this time follow CBC -hemoglobin stable -Interventional Radiology. . . Uterine artery embolization 03/10/2025 2.HypoK/Mag -replete IV... Has central line -follow renal/divalent 3.Pericardial effusion - continue colchicine 4.CAD -stable and well compensated at this time Full code Boots Patient requires ongoing hospitalization for recurrent vaginal bleeding in the backdrop of AFib requiring Eliquis. Patient at high risk of outpatient failure if discharge before uterine artery embolization. Scheduled for 03/10/2025. Medically necessary to remain in hospital setting for monitoring of blood count and heart rate and rhythm Quality Stroke Does the patient have a stroke diagnosis?: No Reason for No Anti-thrombotic by Day Two: Contraindicated VTE Prior VTE?: No VTE Risk Level:: Surgical - high VTE Device Contraindication: N/A - Device Ordered VTE Drug Contraindication: Treatment Not Indicated
[2025-03-07 16:00] VITALS: BP 107/56; PULSE 78; RESP 18; TEMP 36.9; O2SAT 98
[2025-03-07 19:09] VITALS: BP 109/58; PULSE 81; RESP 18; TEMP 37.2; O2SAT 98
[2025-03-07 23:13] VITALS: BP 95/54; PULSE 85; RESP 18; TEMP 36.6; O2SAT 98
[2025-03-08] MEDS: Albumin Human 25 % 100 ML IV (01:30)
[2025-03-08 03:27] VITALS: BP 98/54; PULSE 84; RESP 18; TEMP 37.3; O2SAT 94
[2025-03-08 07:31] VITALS: BP 103/56; PULSE 76; RESP 20; TEMP 36.6; O2SAT 96
[2025-03-08] MEDS: 0.9 % Sodium Chloride Flush 3 ML SYRINGE IVFLUSH ×3 (09:03→20:15)
[2025-03-08 11:39] VITALS: BP 101/57; PULSE 75; RESP 18; TEMP 36.8; O2SAT 96
--- NOTE | 2025-03-08 14:04 | P.PNIM_ITS ---
Subjective Subjective Date of Service: 03/08/25 Interval History: No acute issues overnight; no active bleeding Review of Systems Denies chest pain Denies shortness of breath Denies nausea vomiting diarrhea Denies fever chills Physical Exam 2 Vital Signs: Vital Signs: Last Vital Signs Temp 98.3 F 03/08/25 11:39 Pulse 75 03/08/25 11:39 Resp 18 03/08/25 11:39 BP 101/57 L 03/08/25 11:39 Pulse Ox 96 03/08/25 11:39 O2 Del Method Room Air 03/08/25 11:39 BMI result Body Mass Index 25.6 Const: Other: Awake alert no acute distress Resp: Other: Clear to auscultation bilaterally no rales rhonchi or wheezes Cardio: Other: No S4; positive S1-S2; no S3 murmurs rubs or gallops GI: Other: Soft positive bowel sounds ileostomy in place Extrem: Other: No edema bilaterally Objective Data Active Medications Acetaminophen (Acetaminophen 325 Mg Tablet) 975 mg PO Q6H PRN PRN Reason: Pain, Mild 1-3,fever,headache Last Admin: 03/02/25 12:20 Dose: 975 mg Documented By: AMAURI Amiodarone HCl (Amiodarone Hcl 200 Mg Tablet) 200 mg PO DAILY [facility] Last Admin: 03/08/25 09:03 Dose: 200 mg Documented By: EMA Atorvastatin Calcium (Atorvastatin Calcium 20 Mg Tablet) 20 mg PO BEDTIME [facility] Last Admin: 03/07/25 19:37 Dose: 20 mg Documented By: JOSE Calcium Carbonate (Calcium Carbonate 750 Mg Tab.Chew) 750 mg PO Q4H PRN PRN Reason: Heartburn Carisoprodol (Carisoprodol 350 Mg Tablet) 350 mg PO BEDTIME [facility] Last Admin: 03/07/25 19:37 Dose: 350 mg Documented By: JOSE Carvedilol (Carvedilol 6.25 Mg Tablet) 6.25 mg PO BID [facility]; Protocol Last Admin: 03/08/25 09:03 Dose: 6.25 mg Documented By: EMA Colchicine (Colchicine 0.6 Mg Tablet) 0.6 mg PO DAILY [facility] Last Admin: 03/08/25 09:03 Dose: 0.6 mg Documented By: EMA Gabapentin (Gabapentin 100 Mg Capsule) 100 mg PO TID [facility] Last Admin: 03/08/25 09:03 Dose: 100 mg Documented By: EMA Hydromorphone HCl (Hydromorphone Hcl 1 Mg/Ml Syringe) 1 mg IVPUSH Q4H PRN; Protocol PRN Reason: Pain, Severe (Pain Scale 7-10) Last Admin: 03/08/25 09:03 Dose: 1 mg Documented By: EMA Sodium Chloride (Ns) 1,000 mls @ 100 mls/hr IVCONT .Q10H [facility] Last Admin: 03/08/25 09:02 Dose: 100 mls/hr Documented By: EMA Magnesium Hydroxide (Milk Of Magnesia 30 Ml Oral.Susp) 30 ml PO DAILY PRN PRN Reason: Constipation Magnesium Oxide (Magnesium Oxide 400 Mg Tablet) 800 mg PO DAILY [facility] Last Admin: 03/08/25 09:03 Dose: 800 mg Documented By: EMA Melatonin (Melatonin 3 Mg Tablet) 6 mg PO BEDTIME PRN PRN Reason: Insomnia Mirtazapine (Mirtazapine 15 Mg Tablet) 15 mg PO BEDTIME [facility] Last Admin: 03/07/25 19:37 Dose: 15 mg Documented By: JOSE Multivitamins/Vitamin C (Multivitamin Tablet) 1 tab PO DAILY [facility] Last Admin: 03/08/25 09:03 Dose: 1 tab Documented By: EMA Ondansetron HCl (Ondansetron Odt 4 Mg Tab.Rapdis) 4 mg TRANSLINGU Q6H PRN PRN Reason: Nausea and Vomiting Last Admin: 03/07/25 19:47 Dose: 4 mg Documented By: JOSE Sodium Chloride (0.9 % Sodium Chloride Flush 3 Ml Syringe) 3 ml IVFLUSH QSHIFT [facility] Last Admin: 03/08/25 09:03 Dose: 3 ml Documented By: EMA Labs 03/07/25 05:45 03/07/25 05:45 Assessment and Plan (1) Anemia: Status: Acute Plan 65yo F with HTN, HLD, CAD, CHF, pAF on Eliquis, hx pancreatitis, recent subtotal colectomy/hernia repair [place] [facility] [place] on [place]/07/2025 with resultant ileostomy bag followed by admission to the ICU at [facility] from 01/20-01/25 for pulmonary edema/pericardial effusion/anemia/new onset a flutter/intra-abdominal abscess/Finegoldia bacteremia after which patient was transferred to [facility] where she has abscesses drained; finished a course of antibiotics and discharged home on 02/17/25. Presented back to the ER on 02/18/25 overnight with a chief complaint of abdominal pain with question of cholecystitis ruled out, discharged home 02/27. Re-admitted 02/28 for abdominal pain and nausea along with vaginal spotting and BRBPR 1.Acute/chronic anemia...BRBPR -hold Eliquis at this time follow CBC -hemoglobin stable -Interventional Radiology. . . Uterine artery embolization 03/10/2025 2.HypoK/Mag -replete IV... Has central line -follow renal/divalent 3.Pericardial effusion - continue colchicine 4.CAD -stable and well compensated at this time Full code Boots Patient requires ongoing hospitalization for recurrent vaginal bleeding in the backdrop of AFib requiring Eliquis. Patient at high risk of outpatient failure if discharge before uterine artery embolization. Scheduled for 03/10/2025. Medically necessary to remain in hospital setting for monitoring of blood count and heart rate and rhythm Quality Stroke Does the patient have a stroke diagnosis?: No Reason for No Anti-thrombotic by Day Two: Contraindicated VTE Prior VTE?: No VTE Risk Level:: Surgical - high VTE Device Contraindication: N/A - Device Ordered VTE Drug Contraindication: Treatment Not Indicated
[2025-03-08 15:25] VITALS: BP 103/57; PULSE 80; RESP 18; TEMP 37.3; O2SAT 93
[2025-03-08 19:18] VITALS: BP 108/55; PULSE 79; RESP 18; TEMP 37.4; O2SAT 94
[2025-03-08 23:12] VITALS: BP 99/56; PULSE 76; RESP 18; TEMP 37; O2SAT 95
[2025-03-09 03:06] VITALS: BP 115/56; PULSE 78; RESP 18; TEMP 37; O2SAT 95
[2025-03-09 07:21] LABS: MANUAL DIFF FLAG NO
[2025-03-09 07:26] LABS: Hematocrit 27.8 % (37.0-47.0); Hemoglobin 9.3 g/dl (12.0-16.0); Imm Gran Abs Auto 0.06 X10*3/uL (0.00-0.03); Imm Gran Pct Auto 0.5 % (0.0-0.4); Lymphocytes Absolute Auto 1.5 X10*3/uL (1.2-4.9); Mean Corpuscular HGB Conc 33.5 g/dl (31.0-35.0); Mean Corpuscular Hemoglobin 30.2 pg (27.0-33.0); Mean Corpuscular Volume 90.3 fL (80.0-98.0); NRBC Abs Auto 0.000 X10*3/uL (0.0-0.012); NRBC Pct Auto 0.0 /100WBC (0.0-0.2); Platelet Count 205 X10*3/uL (160-400); Red Blood Count 3.08 X10*6/uL (4.20-5.50); White Blood Count 11.4 X10*3/uL (4.8-10.8)
[2025-03-09 07:34] VITALS: BP 107/56; PULSE 77; RESP 20; TEMP 36.2; O2SAT 94
[2025-03-09 08:10] LABS: Alanine Aminotransferase 13 U/L (0-31); Albumin Level 2.5 g/dL (3.5-5.0); Alkaline Phosphatase 128 U/L (39-117); Anion Gap 11 (12-20); Aspartate Amino Transferase 63 U/L (5-31); Blood Urea Nitrogen 5 mg/dL (9-16); Calcium 7.2 mg/dL (8.4-10.2); Carbon Dioxide 22 mmol/L (22-29); Chloride 110 mmol/L (96-108); Creatinine Clr Calc Pharmacy 100.9; Estimated Glomerular Filt Rate > 60; Potassium 2.6 mmol/L (3.3-5.1); Sodium 140 mmol/L (135-145); Total Protein 6.1 g/dL (6.5-8.0)
[2025-03-09] MEDS: 0.9 % Sodium Chloride Flush 3 ML SYRINGE IVFLUSH ×3 (09:35→19:57)
[2025-03-09 11:53] VITALS: BP 112/64; PULSE 71; RESP 20; TEMP 36.1; O2SAT 93
[2025-03-09] MEDS: Potassium Chloride/H20 10 MEQ/100 ML PIGGYBACK 100 MEQ IV ×4 (12:07→17:00)
--- NOTE | 2025-03-09 13:24 | HO.PM.IMPN ---
Subjective Subjective Date of Service: 03/09/25 Interval History: Remains hemodynamically stable. Hemoglobin stable. No acute issues overnight Review of Systems Denies chest pain Denies shortness of breath Denies nausea vomiting diarrhea Denies fever chills Physical Exam Vital Signs: Vital Signs: Last Vital Signs Temp 97.0 F 03/09/25 11:53 Pulse 71 03/09/25 11:53 Resp 20 03/09/25 11:53 BP 112/64 03/09/25 11:53 Pulse Ox 93 03/09/25 11:53 O2 Del Method Room Air 03/09/25 11:53 BMI result Body Mass Index 25.6 Const: Other: Awake alert no acute distress Resp: Other: Clear to auscultation bilaterally no rales rhonchi or wheezes Cardio: Other: No S4; positive S1-S2; no S3 murmurs rubs or gallops GI: Other: Soft positive bowel sounds ileostomy in place Extrem: Other: No edema bilaterally Objective Data Active Medications Acetaminophen (Acetaminophen 325 Mg Tablet) 975 mg PO Q6H PRN PRN Reason: Pain, Mild 1-3,fever,headache Last Admin: 03/02/25 12:20 Dose: 975 mg Documented By: AMAURI Amiodarone HCl (Amiodarone Hcl 200 Mg Tablet) 200 mg PO DAILY [facility] Last Admin: 03/09/25 09:28 Dose: 200 mg Documented By: KORTNEY Atorvastatin Calcium (Atorvastatin Calcium 20 Mg Tablet) 20 mg PO BEDTIME [facility] Last Admin: 03/08/25 20:05 Dose: 20 mg Documented By: JOSE Calcium Carbonate (Calcium Carbonate 750 Mg Tab.Chew) 750 mg PO Q4H PRN PRN Reason: Heartburn Carisoprodol (Carisoprodol 350 Mg Tablet) 350 mg PO BEDTIME [facility] Last Admin: 03/08/25 20:05 Dose: 350 mg Documented By: JOSE Carvedilol (Carvedilol 6.25 Mg Tablet) 6.25 mg PO BID [facility]; Protocol Last Admin: 03/09/25 09:28 Dose: 6.25 mg Documented By: KORTNEY Colchicine (Colchicine 0.6 Mg Tablet) 0.6 mg PO DAILY [facility] Last Admin: 03/09/25 09:30 Dose: 0.6 mg Documented By: KORTNEY Gabapentin (Gabapentin 100 Mg Capsule) 100 mg PO TID [facility] Last Admin: 03/09/25 09:28 Dose: 100 mg Documented By: KORTNEY Hydromorphone HCl (Hydromorphone Hcl 1 Mg/Ml Syringe) 1 mg IVPUSH Q4H PRN; Protocol PRN Reason: Pain, Severe (Pain Scale 7-10) Last Admin: 03/09/25 09:29 Dose: 1 mg Documented By: KORTNEY Potassium Chloride (Potassium Chloride/H20) 10 meq in 100 mls @ 100 mls/hr IV Q1H [facility] Stop: 03/09/25 14:59 Last Admin: 03/09/25 12:07 Dose: 100 mls/hr Documented By: KORTNEY Magnesium Hydroxide (Milk Of Magnesia 30 Ml Oral.Susp) 30 ml PO DAILY PRN PRN Reason: Constipation Magnesium Oxide (Magnesium Oxide 400 Mg Tablet) 800 mg PO DAILY [facility] Last Admin: 03/09/25 09:28 Dose: 800 mg Documented By: KORTNEY Melatonin (Melatonin 3 Mg Tablet) 6 mg PO BEDTIME PRN PRN Reason: Insomnia Mirtazapine (Mirtazapine 15 Mg Tablet) 15 mg PO BEDTIME [facility] Last Admin: 03/08/25 20:05 Dose: 15 mg Documented By: JOSE Multivitamins/Vitamin C (Multivitamin Tablet) 1 tab PO DAILY [facility] Last Admin: 03/09/25 09:28 Dose: 1 tab Documented By: KORTNEY Ondansetron HCl (Ondansetron Odt 4 Mg Tab.Rapdis) 4 mg TRANSLINGU Q6H PRN PRN Reason: Nausea and Vomiting Last Admin: 03/09/25 09:28 Dose: 4 mg Documented By: KORTNEY Sodium Chloride (0.9 % Sodium Chloride Flush 3 Ml Syringe) 3 ml IVFLUSH QSHIFT [facility] Last Admin: 03/09/25 09:35 Dose: 3 ml Documented By: KORTNEY Labs 03/09/25 07:02 03/09/25 07:02 Labs: Laboratory Results - last 24 hr 03/09/25 07:02 MCV 90.3 MCH 30.2 MCHC 33.5 RDW 14.8 Plt Count 205 MPV 10.2 Immature Gran % (Auto) 0.5 H Neut % (Auto) 75.2 H Lymph % (Auto) 12.8 L [place] % (Auto) 8.4 Eos % (Auto) 2.6 Baso % (Auto) 0.5 Lymph # (Auto) 1.5 [place] # (Auto) 1.0 Eos # (Auto) 0.3 Baso # (Auto) 0.1 Abs Immat Gran (auto) 0.06 H Absolute Neuts (auto) 8.5 H Absolute Nucleated RBC 0.000 Nucleated RBC % (auto) 0.0 Anion Gap 11 L Estim Creat Clear Calc 100.9 Estimated GFR > 60 Fasting Glucose 76 Calcium 7.2 L Total Bilirubin 0.4 AST 63 H ALT 13 Alkaline Phosphatase 128 H Total Protein 6.1 L Albumin 2.5 L Assessment and Plan (1) Anemia: Status: Acute (2) Postmenopausal bleeding: Status: Acute Plan 65yo F with HTN, HLD, CAD, CHF, pAF on Eliquis, hx pancreatitis, recent subtotal colectomy[place] [facility] [place]/07/20[place] with resultant ileostomy bag followed by admission to the ICU at [facility] from 01/20-01/25 for pulmonary edema/pericardial effusion/anemia/new onset a flutter/intra-abdominal abscess/Finegoldia bacteremia [facility]; finished a course of antibiotics and discharged home on 02/17/25. Presented back to the ER on 02/18/25 overnight with a chief complaint of abdominal pain with question of cholecystitis ruled out, discharged home 02/27. Re-admitted 02/28 for abdominal pain and nausea along with vaginal spotting and BRBPR 1.Acute/chronic anemia...BRBPR -hold Eliquis -hemoglobin stable -Interventional Radiology. . . Uterine artery embolization 03/10/2025 1600 2.HypoK/Mag -replete IV... Has central line.. Persistently hypokalemic -follow renal/divalent 3.Pericardial effusion - continue colchicine 4.CAD -stable and well compensated at this time Full code Boots Patient requires ongoing hospitalization for recurrent vaginal bleeding in the backdrop of AFib requiring Eliquis. Patient at high risk of outpatient failure if discharge before uterine artery embolization. Scheduled for 03/10/2025. Medically necessary to remain in hospital setting for monitoring of blood count and heart rate and rhythm Quality Stroke Does the patient have a stroke diagnosis?: No Reason for No Anti-thrombotic by Day Two: Contraindicated VTE Prior VTE?: No VTE Risk Level:: Surgical - high VTE Device Contraindication: N/A - Device Ordered VTE Drug Contraindication: Treatment Not Indicated
[2025-03-09 13:59] LABS: Magnesium 1.2 mg/dL (1.6-2.6)
[2025-03-09 15:12] VITALS: BP 115/61; PULSE 75; RESP 18; TEMP 36.2; O2SAT 93
[2025-03-09] MEDS: Magnesium Sulfate/H2O 2 GM/50 ML PIGGYBACK IV (15:43)
[2025-03-09 19:31] VITALS: BP 132/82; PULSE 75; RESP 18; TEMP 36.3; O2SAT 96
[2025-03-09 23:17] VITALS: BP 109/53; PULSE 58; RESP 18; TEMP 36.3; O2SAT 96
[2025-03-10] VITALS (30 sets, daily range): BP systolic 85–127; BP diastolic 40–73; PULSE 67–102; RESP 12–22; TEMP 36.2–37.2; O2SAT 93–99
[2025-03-10 07:12] LABS: MANUAL DIFF FLAG NO
[2025-03-10 07:17] LABS: Hematocrit 30.1 % (37.0-47.0); Hemoglobin 10.0 g/dl (12.0-16.0); Imm Gran Abs Auto 0.08 X10*3/uL (0.00-0.03); Imm Gran Pct Auto 0.6 % (0.0-0.4); Lymphocytes Absolute Auto 1.4 X10*3/uL (1.2-4.9); Mean Corpuscular HGB Conc 33.2 g/dl (31.0-35.0); Mean Corpuscular Hemoglobin 29.4 pg (27.0-33.0); Mean Corpuscular Volume 88.5 fL (80.0-98.0); NRBC Abs Auto 0.000 X10*3/uL (0.0-0.012); NRBC Pct Auto 0.0 /100WBC (0.0-0.2); Platelet Count 219 X10*3/uL (160-400); Red Blood Count 3.40 X10*6/uL (4.20-5.50); White Blood Count 13.3 X10*3/uL (4.8-10.8)
[2025-03-10 07:41] LABS: Alanine Aminotransferase 13 U/L (0-31); Albumin Level 2.6 g/dL (3.5-5.0); Alkaline Phosphatase 162 U/L (39-117); Anion Gap 11 (12-20); Aspartate Amino Transferase 67 U/L (5-31); Blood Urea Nitrogen 7 mg/dL (9-16); Calcium 7.4 mg/dL (8.4-10.2); Carbon Dioxide 23 mmol/L (22-29); Chloride 106 mmol/L (96-108); Creatinine Clr Calc Pharmacy 98.9; Estimated Glomerular Filt Rate > 60; Potassium 2.9 mmol/L (3.3-5.1); Sodium 137 mmol/L (135-145); Total Protein 6.4 g/dL (6.5-8.0)
[2025-03-10 08:13] LABS: Magnesium 1.6 mg/dL (1.6-2.6)
[2025-03-10] MEDS: 0.9 % Sodium Chloride Flush 3 ML SYRINGE IVFLUSH (09:58)
[2025-03-10] MEDS: Potassium Chloride/H20 10 MEQ/100 ML PIGGYBACK 100 MEQ IV ×4 (10:35→14:59)
--- NOTE | 2025-03-10 11:01 | P.PNIM_ITS ---
Subjective Subjective Date of Service: 03/10/25 Interval History: Seen and evaluated this morning feels better overall no reported bleeding. Hb stable Pending IR procedure this afternoon Review of Systems Review of Systems: Yes all other systems are reviewed and are negative Physical Exam 2 Vital Signs: Vital Signs: Last Vital Signs Temp 97.9 F 03/10/25 07:10 Pulse 71 03/10/25 07:10 Resp 15 03/10/25 07:10 BP 119/61 03/10/25 07:10 Pulse Ox 93 03/10/25 07:10 O2 Del Method Room Air 03/10/25 07:10 BMI result Body Mass Index 25.6 Const: Other: Constitutional : Awake, interactive, not in distress Neck : Normal inspection, Supple Cardiovascular : RRR, no JVP, no lower extremity edema Respiratory : good bilateral air entry, no crackles, wheezes or rhonchi Gastrointestinal: soft, lax, Normal bowel sounds, Non tender Skin : Warm, Dry Neurological : Alert & oriented x3, No focal deficit Objective Data Active Medications Acetaminophen (Acetaminophen 325 Mg Tablet) 975 mg PO Q6H PRN PRN Reason: Pain, Mild 1-3,fever,headache Last Admin: 03/02/25 12:20 Dose: 975 mg Documented By: AMAURI Amiodarone HCl (Amiodarone Hcl 200 Mg Tablet) 200 mg PO DAILY [facility] Last Admin: 03/10/25 09:58 Dose: 200 mg Documented By: KORTNEY Apixaban (Apixaban 5 Mg Tablet) 5 mg PO BID [facility] Atorvastatin Calcium (Atorvastatin Calcium 20 Mg Tablet) 20 mg PO BEDTIME [facility] Last Admin: 03/09/25 19:56 Dose: 20 mg Documented By: PAULO Calcium Carbonate (Calcium Carbonate 750 Mg Tab.Chew) 750 mg PO Q4H PRN PRN Reason: Heartburn Carisoprodol (Carisoprodol 350 Mg Tablet) 350 mg PO BEDTIME [facility] Last Admin: 03/09/25 20:30 Dose: 350 mg Documented By: PAULO Carvedilol (Carvedilol 6.25 Mg Tablet) 6.25 mg PO BID [facility]; Protocol Last Admin: 03/10/25 09:58 Dose: 6.25 mg Documented By: KORTNEY Colchicine (Colchicine 0.6 Mg Tablet) 0.6 mg PO DAILY [facility] Last Admin: 03/10/25 09:57 Dose: 0.6 mg Documented By: KORTNEY Gabapentin (Gabapentin 100 Mg Capsule) 100 mg PO TID [facility] Last Admin: 03/10/25 09:58 Dose: 100 mg Documented By: KORTNEY Hydromorphone HCl (Hydromorphone Hcl 1 Mg/Ml Syringe) 1 mg IVPUSH Q4H PRN; Protocol PRN Reason: Pain, Severe (Pain Scale 7-10) Last Admin: 03/10/25 09:57 Dose: 1 mg Documented By: KORTNEY Potassium Chloride (Potassium Chloride/H20) 10 meq in 100 mls @ 100 mls/hr IV Q1H [facility] Stop: 03/10/25 14:29 Last Admin: 03/10/25 10:35 Dose: 100 mls/hr Documented By: CATERINA Magnesium Hydroxide (Milk Of Magnesia 30 Ml Oral.Susp) 30 ml PO DAILY PRN PRN Reason: Constipation Magnesium Oxide (Magnesium Oxide 400 Mg Tablet) 800 mg PO DAILY [facility] Last Admin: 03/10/25 09:57 Dose: 800 mg Documented By: KORTNEY Melatonin (Melatonin 3 Mg Tablet) 6 mg PO BEDTIME PRN PRN Reason: Insomnia Mirtazapine (Mirtazapine 15 Mg Tablet) 15 mg PO BEDTIME [facility] Last Admin: 03/09/25 19:56 Dose: 15 mg Documented By: PAULO Multivitamins/Vitamin C (Multivitamin Tablet) 1 tab PO DAILY [facility] Last Admin: 03/10/25 09:58 Dose: 1 tab Documented By: KORTNEY Ondansetron HCl (Ondansetron Odt 4 Mg Tab.Rapdis) 4 mg TRANSLINGU Q6H PRN PRN Reason: Nausea and Vomiting Last Admin: 03/10/25 09:57 Dose: 4 mg Documented By: KORTNEY Sodium Chloride (0.9 % Sodium Chloride Flush 3 Ml Syringe) 3 ml IVFLUSH QSHIFT [facility] Last Admin: 03/10/25 09:58 Dose: 3 ml Documented By: KORTNEY Labs 03/10/25 06:51 03/10/25 06:51 Labs: Laboratory Results - last 24 hr 03/09/25 03/10/25 07:02 06:51 MCV 88.5 MCH 29.4 MCHC 33.2 RDW 14.7 Plt Count 219 MPV 9.4 Immature Gran % (Auto) 0.6 H Neut % (Auto) 77.6 H Lymph % (Auto) 10.5 L [place] % (Auto) 7.8 Eos % (Auto) 2.9 Baso % (Auto) 0.6 Lymph # (Auto) 1.4 [place] # (Auto) 1.0 Eos # (Auto) 0.4 Baso # (Auto) 0.1 Abs Immat Gran (auto) 0.08 H Absolute Neuts (auto) 10.3 H Absolute Nucleated RBC 0.000 Nucleated RBC % (auto) 0.0 Anion Gap 11 L Estim Creat Clear Calc 98.9 Estimated GFR > 60 Fasting Glucose 90 Calcium 7.4 L Magnesium 1.2 L* 1.6 Total Bilirubin 0.5 AST 67 H ALT 13 Alkaline Phosphatase 162 H Total Protein 6.4 L Albumin 2.6 L Assessment and Plan (1) Rectal bleeding: Status: Acute (2) Uterine myoma: Status: Acute (3) Acute hypokalemia: Status: Acute (4) Anemia: Status: Acute Plan 65yo F with HTN, HLD, CAD, CHF, pAF on Eliquis, hx pancreatitis, recent subtotal colectomy/hernia repair at [facility] [place] on 01/07/2025 with resultant ileostomy bag followed by admission to the ICU at [facility] from 01/20-01/25 for pulmonary edema/pericardial effusion/anemia/new onset a flutter/intra-abdominal abscess/Finegoldia bacteremia after which patient was transferred to [facility] where she has abscesses drained; finished a course of antibiotics and discharged home on 02/17/25. Presented back to the ER on 02/18/25 overnight with a chief complaint of abdominal pain with question of cholecystitis ruled out, discharged home 02/27. 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 Persistently hypokalemic from before follow renal/divalent Pericardial effusion continue colchicine Hx CAD stable and well compensated at this time Hx Afib restart Eliquis in 24-48 hours post IR procedure and monitor for rebleeding Full code Boots Patient requires ongoing hospitalization for recurrent vaginal bleeding in the backdrop of AFib requiring Eliquis. Patient at high risk of outpatient failure if discharge before uterine artery embolization. Scheduled for 03/10/2025. Medically necessary to remain in hospital setting for monitoring of blood count and heart rate and rhythm Quality Stroke Does the patient have a stroke diagnosis?: No Reason for No Anti-thrombotic by Day Two: Contraindicated VTE Prior VTE?: No VTE Risk Level:: Surgical - high VTE Device Contraindication: N/A - Device Ordered VTE Drug Contraindication: Treatment Not Indicated
--- NOTE | 2025-03-10 11:02 | MHC.CM.PN ---
Patient is not yet medically cleared for dc(monitoring blood count, heart rate and rhythm); STR is the goal and CM will continue to follow.
--- NOTE | 2025-03-10 14:39 | MHC.CM.PN ---
CM met with Patient at bedside to discuss dc planning. Patient has accepted a bed offer from [facility] and [employer] auth will be needed.CM will continue to follow.
--- NOTE | 2025-03-10 17:54 | W.PM.OPN ---
Operative Note Operative Note Date of Service: 03/10/25 Narrative: IR BRIEF OP NOTE Procedure: Uterine artery embolization History: Vaginal bleeding. Fibroids Complications: None immediately EBL: Minimal Impression: Technically successful uterine artery embolization via a right common femoral arterial approach PLAN: Lie flat x 60 min HOB 0-30 degrees x 120 min HOB 0-45 degrees x 120 min Then ambulate as tolerated Monitor right groin puncture site. Pain meds per medicine. Medrol dose pack starting tomorrow Full procedure note to follow with images under radiology section.
[2025-03-11] VITALS (8 sets, daily range): BP systolic 99–119; BP diastolic 55–62; PULSE 61–74; RESP 14–18; TEMP 36.1–36.7; O2SAT 93–98
[2025-03-11] MEDS: 0.9 % Sodium Chloride Flush 3 ML SYRINGE IVFLUSH ×4 (00:25→21:32)
[2025-03-11 06:41] LABS: MANUAL DIFF FLAG NO
[2025-03-11 06:49] LABS: Hematocrit 31.5 % (37.0-47.0); Hemoglobin 10.3 g/dl (12.0-16.0); Imm Gran Abs Auto 0.08 X10*3/uL (0.00-0.03); Imm Gran Pct Auto 0.6 % (0.0-0.4); Lymphocytes Absolute Auto 1.2 X10*3/uL (1.2-4.9); Mean Corpuscular HGB Conc 32.7 g/dl (31.0-35.0); Mean Corpuscular Hemoglobin 29.3 pg (27.0-33.0); Mean Corpuscular Volume 89.7 fL (80.0-98.0); NRBC Abs Auto 0.000 X10*3/uL (0.0-0.012); NRBC Pct Auto 0.0 /100WBC (0.0-0.2); Platelet Count 234 X10*3/uL (160-400); Red Blood Count 3.51 X10*6/uL (4.20-5.50); White Blood Count 12.7 X10*3/uL (4.8-10.8)
[2025-03-11 07:07] LABS: Anion Gap 15 (12-20); Blood Urea Nitrogen 10 mg/dL (9-16); Calcium 7.8 mg/dL (8.4-10.2); Carbon Dioxide 21 mmol/L (22-29); Chloride 105 mmol/L (96-108); Creatinine Clr Calc Pharmacy 85.0; Estimated Glomerular Filt Rate > 60; Potassium 3.8 mmol/L (3.3-5.1); Sodium 137 mmol/L (135-145)
[2025-03-11 09:34] LABS: Magnesium 1.7 mg/dL (1.6-2.6)
--- NOTE | 2025-03-11 18:51 | P.PNIM_ITS ---
Subjective Subjective Date of Service: 03/11/25 Interval History: Acute/chronic anemia with BRBPR\Vaginal Review of Systems no more bleeding Review of Systems: Yes all other systems are reviewed and are negative Physical Exam 2 Vital Signs: Vital Signs: Last Vital Signs Temp 97.3 F 03/11/25 15:17 Pulse 70 03/11/25 15:17 Resp 16 03/11/25 15:17 BP 112/55 L 03/11/25 15:17 Pulse Ox 93 03/11/25 15:17 O2 Del Method Room Air 03/11/25 15:17 O2 Flow Rate 2 03/10/25 17:40 BMI result Body Mass Index 25.6 Appearance: Alert.? Oriented X3.? cvs: rrr, [id number] . res: clear to auscultation ,no rhonchii or wheezing abd: no rebound or guarding ,bs present, has some back soarness says improving since procedure. ext pulses present , no cyanosis . neuro: nonfocal. Objective Data Active Medications Acetaminophen (Acetaminophen 325 Mg Tablet) 975 mg PO Q6H PRN PRN Reason: Pain, Mild 1-3,fever,headache Last Admin: 03/02/25 12:20 Dose: 975 mg Documented By: AMAURI Amiodarone HCl (Amiodarone Hcl 200 Mg Tablet) 200 mg PO DAILY [facility] Last Admin: 03/11/25 08:44 Dose: 200 mg Documented By: DAMON Apixaban (Apixaban 5 Mg Tablet) 5 mg PO BID [facility] Atorvastatin Calcium (Atorvastatin Calcium 20 Mg Tablet) 20 mg PO BEDTIME [facility] Last Admin: 03/10/25 20:51 Dose: 20 mg Documented By: PAULO Calcium Carbonate (Calcium Carbonate 750 Mg Tab.Chew) 750 mg PO Q4H PRN PRN Reason: Heartburn Last Admin: 03/11/25 15:54 Dose: 750 mg Documented By: DAMON Carisoprodol (Carisoprodol 350 Mg Tablet) 350 mg PO BEDTIME [facility] Last Admin: 03/10/25 20:52 Dose: 350 mg Documented By: PAULO Carvedilol (Carvedilol 6.25 Mg Tablet) 6.25 mg PO BID [facility]; Protocol Last Admin: 03/11/25 08:43 Dose: 6.25 mg Documented By: DAMON Colchicine (Colchicine 0.6 Mg Tablet) 0.6 mg PO DAILY [facility] Last Admin: 03/11/25 08:43 Dose: 0.6 mg Documented By: DAMON Gabapentin (Gabapentin 100 Mg Capsule) 100 mg PO TID [facility] Last Admin: 03/11/25 15:49 Dose: 100 mg Documented By: DAMON Hydromorphone HCl (Hydromorphone Hcl 2 Mg Tablet) 2 mg PO ONCE PRN PRN Reason: Pain, Severe (Pain Scale 7-10) Hydromorphone HCl (Hydromorphone Hcl 1 Mg/Ml Syringe) 1.5 mg IVPUSH Q4H PRN; Protocol PRN Reason: Pain, Severe (Pain Scale 7-10) Last Admin: 03/11/25 15:54 Dose: 1.5 mg Documented By: DAMON Magnesium Hydroxide (Milk Of Magnesia 30 Ml Oral.Susp) 30 ml PO DAILY PRN PRN Reason: Constipation Magnesium Oxide (Magnesium Oxide 400 Mg Tablet) 800 mg PO DAILY [facility] Last Admin: 03/11/25 08:43 Dose: 800 mg Documented By: DAMON Melatonin (Melatonin 3 Mg Tablet) 6 mg PO BEDTIME PRN PRN Reason: Insomnia Mirtazapine (Mirtazapine 15 Mg Tablet) 15 mg PO BEDTIME [facility] Last Admin: 03/10/25 20:50 Dose: 15 mg Documented By: PAULO Multivitamins/Vitamin C (Multivitamin Tablet) 1 tab PO DAILY [facility] Last Admin: 03/11/25 08:43 Dose: 1 tab Documented By: DAMON Omeprazole (Omeprazole 20 Mg Capsule.) 20 mg PO BID@0630,1630 [facility] Last Admin: 03/11/25 15:53 Dose: 20 mg Documented By: DAMON Ondansetron HCl (Ondansetron Odt 4 Mg Tab.Rapdis) 4 mg TRANSLINGU Q6H PRN PRN Reason: Nausea and Vomiting Last Admin: 03/11/25 11:02 Dose: 4 mg Documented By: DAMON Prednisone (Prednisone 20 Mg Tablet) 40 mg PO DAILY [facility] Last Admin: 03/11/25 11:04 Dose: 40 mg Documented By: DAMON Sodium Chloride (0.9 % Sodium Chloride Flush 3 Ml Syringe) 3 ml IVFLUSH QSHIFT [facility] Last Admin: 03/11/25 15:52 Dose: 3 ml Documented By: DAMON Labs 03/11/25 06:32 03/11/25 06:32 Labs: Laboratory Results - last 24 hr 03/11/25 06:32 MCV 89.7 MCH 29.3 MCHC 32.7 RDW 14.8 Plt Count 234 MPV 9.5 Immature Gran % (Auto) 0.6 H Neut % (Auto) 85.7 H Lymph % (Auto) 9.1 L Eagle % (Auto) 3.9 Eos % (Auto) 0.1 Baso % (Auto) 0.6 Lymph # (Auto) 1.2 Eagle # (Auto) 0.5 Eos # (Auto) 0.0 Baso # (Auto) 0.1 Abs Immat Gran (auto) 0.08 H Absolute Neuts (auto) 10.9 H Absolute Nucleated RBC 0.000 Nucleated RBC % (auto) 0.0 Anion Gap 15 Estim Creat Clear Calc 85.0 Estimated GFR > 60 Random Glucose 103 Calcium 7.8 L Magnesium 1.7 Assessment and Plan (1) Rectal bleeding: Status: Acute (2) Uterine myoma: Status: Acute (3) Acute hypokalemia: Status: Acute (4) Anemia: Status: Acute Plan 65yo F with HTN, HLD, CAD, CHF, pAF on Eliquis, hx pancreatitis, recent subtotal colectomy/hernia repair at [facility] on 01/07/2025 with resultant ileostomy bag followed by admission to the ICU at [facility] from 01/20-01/25 for pulmonary edema/pericardial effusion/anemia/new onset a flutter/intra-abdominal abscess/Finegoldia bacteremia after which patient was transferred to [facility] where she has abscesses drained; finished a course of antibiotics and discharged home on 02/17/25. Presented back to the ER on 02/18/25 overnight with a chief complaint of abdominal pain with question of cholecystitis ruled out, discharged home 02/27. 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 Persistently hypokalemic from before follow renal/divalent Pericardial effusion continue colchicine Hx CAD stable and well compensated at this time Hx Afib start Eliquis . Full code Boots Patient requires ongoing hospitalization for recurrent vaginal bleeding in the backdrop of AFib requiring Eliquis. Patient at high risk of outpatient failure if discharge before uterine artery embolization. Scheduled for 03/10/2025. Medically necessary to remain in hospital setting for monitoring of blood count and heart rate and rhythm Quality Stroke Does the patient have a stroke diagnosis?: No Reason for No Anti-thrombotic by Day Two: Contraindicated VTE Prior VTE?: No VTE Risk Level:: Surgical - high VTE Device Contraindication: N/A - Device Ordered VTE Drug Contraindication: Treatment Not Indicated
--- NOTE | 2025-03-12 | ECG_ITS ---
Test Reason : chest pain Blood Pressure : */* mmHG Vent. Rate : 70 BPM Atrial Rate : 70 BPM P-R Int : 170 ms QRS Dur : 68 ms QT Int : 430 ms P-R-T Axes : 54 -1 32 degrees QTcB Int : 464 ms Normal sinus rhythm Nonspecific ST and T wave abnormality Abnormal ECG When compared with ECG of 01-Mar-2025 10:59, No significant changes seen Referred By: Sal Greenfield Electronically Signed By: Russell Hummel
[2025-03-12 03:30] VITALS: BP 126/68; PULSE 71; RESP 16; TEMP 36.8; O2SAT 98
[2025-03-12 07:19] VITALS: BP 139/70; PULSE 70; RESP 20; TEMP 36.6; O2SAT 97
[2025-03-12] MEDS: 0.9 % Sodium Chloride Flush 3 ML SYRINGE IVFLUSH ×2 (08:36→20:30)
[2025-03-12 08:49] LABS: Hematocrit 31.2 % (37.0-47.0); Hemoglobin 10.5 g/dl (12.0-16.0); Mean Corpuscular HGB Conc 33.7 g/dl (31.0-35.0); Mean Corpuscular Hemoglobin 29.6 pg (27.0-33.0); Mean Corpuscular Volume 87.9 fL (80.0-98.0); NRBC Abs Auto 0.000 X10*3/uL (0.0-0.012); NRBC Pct Auto 0.0 /100WBC (0.0-0.2); Platelet Count 285 X10*3/uL (160-400); Red Blood Count 3.55 X10*6/uL (4.20-5.50); White Blood Count 13.7 X10*3/uL (4.8-10.8)
[2025-03-12 09:07] LABS: Alanine Aminotransferase 14 U/L (0-31); Albumin Level 2.7 g/dL (3.5-5.0); Alkaline Phosphatase 221 U/L (39-117); Anion Gap 10 (12-20); Aspartate Amino Transferase 81 U/L (5-31); Blood Urea Nitrogen 17 mg/dL (9-16); Calcium 7.9 mg/dL (8.4-10.2); Carbon Dioxide 24 mmol/L (22-29); Chloride 107 mmol/L (96-108); Creatinine Clr Calc Pharmacy 89.7; Estimated Glomerular Filt Rate > 60; Lipase 193 U/L (8-78); Potassium 3.3 mmol/L (3.3-5.1); Sodium 138 mmol/L (135-145); Total Protein 7.3 g/dL (6.5-8.0)
[2025-03-12 09:12] LABS: Troponin-I High Sensitivity < 2.7 ng/L (<3.5-17.0)
--- NOTE | 2025-03-12 10:38 | MHC.CM.PN ---
Per ROUNDS discussion, Patient is not yet medically cleared for dc (GI & IR pending, C/O pain in abdomen); [employer] [facility] [place] just obtained insurance auth. is aware and CM will continue to follow.
[2025-03-12 11:03] VITALS: BP 136/76; PULSE 68; RESP 20; TEMP 36.3; O2SAT 96
--- NOTE | 2025-03-12 12:26 | MHC.CM.PN ---
Patient requested to speak with CM. Patient is waiting to see GI and expressing that she is in pain. MD is aware.
[2025-03-12] MEDS: Lactated Ringers 1,000 ML 80 ML IVCONT (14:01)
[2025-03-12 15:13] VITALS: BP 124/64; PULSE 82; RESP 18; TEMP 36.9; O2SAT 98
--- NOTE | 2025-03-12 15:18 | P.PNIM_ITS ---
Subjective Subjective Date of Service: 03/12/25 Interval History: ?pnacreatitis Review of Systems abd pain ,?nausea no vomiting Review of Systems: Yes all other systems are reviewed and are negative Physical Exam 2 Vital Signs: Vital Signs: Last Vital Signs Temp 98.4 F 03/12/25 15:13 Pulse 82 03/12/25 15:13 Resp 18 03/12/25 15:13 BP 124/64 03/12/25 15:13 Pulse Ox 98 03/12/25 15:13 O2 Del Method Room Air 03/12/25 15:13 O2 Flow Rate 2 03/10/25 17:40 BMI result Body Mass Index 25.6 Appearance: Alert.? Oriented X3.? cvs: rrr, [id number] . res: clear to auscultation ,no rhonchii or wheezing abd: no rebound or guarding ,bs present,soft,abd pain epigastric (says feels similar to her pancreatitis) ext pulses present , no cyanosis . neuro: nonfocal. Objective Data Active Medications Amiodarone HCl (Amiodarone Hcl 200 Mg Tablet) 200 mg PO DAILY [facility] Last Admin: 03/12/25 08:33 Dose: 200 mg Documented By: SANDIP Apixaban (Apixaban 5 Mg Tablet) 5 mg PO BID [facility] Last Admin: 03/12/25 08:33 Dose: 5 mg Documented By: SANDIP Atorvastatin Calcium (Atorvastatin Calcium 20 Mg Tablet) 20 mg PO BEDTIME [facility] Last Admin: 03/11/25 21:31 Dose: 20 mg Documented By: CARMEN Calcium Carbonate (Calcium Carbonate 750 Mg Tab.Chew) 750 mg PO Q4H PRN PRN Reason: Heartburn Last Admin: 03/11/25 15:54 Dose: 750 mg Documented By: DAMON Carisoprodol (Carisoprodol 350 Mg Tablet) 350 mg PO BEDTIME [facility] Last Admin: 03/11/25 21:32 Dose: 350 mg Documented By: CARMEN Carvedilol (Carvedilol 6.25 Mg Tablet) 6.25 mg PO BID [facility]; Protocol Last Admin: 03/12/25 08:34 Dose: 6.25 mg Documented By: SANDIP Colchicine (Colchicine 0.6 Mg Tablet) 0.6 mg PO DAILY [facility] Last Admin: 03/12/25 08:33 Dose: 0.6 mg Documented By: SANDIP Gabapentin (Gabapentin 100 Mg Capsule) 100 mg PO TID [facility] Last Admin: 03/12/25 14:01 Dose: 100 mg Documented By: NABEEL Hydromorphone HCl (Hydromorphone Hcl 2 Mg Tablet) 2 mg PO ONCE PRN PRN Reason: Pain, Severe (Pain Scale 7-10) Hydromorphone HCl (Hydromorphone Hcl 1 Mg/Ml Syringe) 1.5 mg IVPUSH Q4H PRN; Protocol PRN Reason: Pain, Severe (Pain Scale 7-10) Last Admin: 03/12/25 08:35 Dose: 1.5 mg Documented By: SANDIP Lactated Ringer's (Lr) 1,000 mls @ 80 mls/hr IVCONT .[id number] [facility] Last Admin: 03/12/25 14:01 Dose: 80 mls/hr Documented By: NABEEL Lidocaine (Lidocaine 4 % Patch Adh..Patch) 1 patch TRANSDERMA DAILY [facility]; Protocol Last Admin: 03/12/25 12:17 Dose: Not Given Documented By: SANDIP Non-Admin Reason: Patient Refused Lorazepam (Lorazepam 0.5 Mg Tablet) 0.5 mg PO ONCE PRN PRN Reason: Anxiety Last Admin: 03/12/25 08:33 Dose: 0.5 mg Documented By: SANDIP Magnesium Hydroxide (Milk Of Magnesia 30 Ml Oral.Susp) 30 ml PO DAILY PRN PRN Reason: Constipation Magnesium Oxide (Magnesium Oxide 400 Mg Tablet) 800 mg PO DAILY [facility] Last Admin: 03/12/25 08:33 Dose: 800 mg Documented By: SANDIP Melatonin (Melatonin 3 Mg Tablet) 6 mg PO BEDTIME PRN PRN Reason: Insomnia Mirtazapine (Mirtazapine 15 Mg Tablet) 15 mg PO BEDTIME [facility] Last Admin: 03/11/25 21:31 Dose: 15 mg Documented By: CARMEN Multivitamins/Vitamin C (Multivitamin Tablet) 1 tab PO DAILY [facility] Last Admin: 03/12/25 08:39 Dose: Not Given Documented By: SANDIP Non-Admin Reason: Patient Refused Omeprazole (Omeprazole [address] 20 mg PO BID@0630,1630 [facility] Last Admin: 03/12/25 06:22 Dose: 20 mg Documented By: ANTIAIN Ondansetron HCl (Ondansetron Odt 4 Mg Tab.Rapdis) 4 mg TRANSLINGU Q6H PRN PRN Reason: Nausea and Vomiting Last Admin: 03/12/25 08:32 Dose: 4 mg Documented By: SANDIP Prednisone (Prednisone 20 Mg Tablet) 40 mg PO DAILY [facility] Last Admin: 03/12/25 08:33 Dose: 40 mg Documented By: SANDIP Sodium Chloride (0.9 % Sodium Chloride Flush 3 Ml Syringe) 3 ml IVFLUSH QSHIFT [facility] Last Admin: 03/12/25 14:42 Dose: Not Given Documented By: SANDIP Non-Admin Reason: IV Running Labs 03/12/25 08:32 03/12/25 08:32 Labs: Laboratory Results - last 24 hr 03/12/25 08:32 MCV 87.9 MCH 29.6 MCHC 33.7 RDW 14.6 Plt Count 285 MPV 9.3 L Absolute Nucleated RBC 0.000 Nucleated RBC % (auto) 0.0 Anion Gap 10 L Estim Creat Clear Calc 89.7 Estimated GFR > 60 Random Glucose 108 Calcium 7.9 L Total Bilirubin 0.3 AST 81 H ALT 14 Alkaline Phosphatase 221 H Total Protein 7.3 Albumin 2.7 L Lipase 193 H Assessment and Plan (1) Rectal bleeding: Status: Acute (2) Uterine myoma: Status: Acute (3) Acute hypokalemia: Status: Acute (4) Anemia: Status: Acute Plan 65yo F with HTN, HLD, CAD, CHF, pAF on Eliquis, hx pancreatitis, recent subtotal colectomy/hernia repair at [facility] on 01/07/2025 with resultant ileostomy bag followed by admission to the ICU at [facility] from 01/20-01/25 for pulmonary edema/pericardial effusion/anemia/new onset a flutter/intra-abdominal abscess/Fine[place]ia bacteremia after which patient was transferred to [facility] where she has abscesses drained; finished a course of antibiotics and discharged home on 02/17/25. Presented back to the ER on 02/18/25 overnight with a chief complaint of abdominal pain with question of cholecystitis ruled out, discharged home 02/27. 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 mild pancreaitis-last abdominal CT-showed resolving pancreatitis Will place NPO, IV fluid, PPIs, antiemetics, CT abdomen., pain contol with iv dilaudidand tylenol. GI and IR following Acute HypoK/Mag replete IV and PO Has central line.. Persistently hypokalemic from before follow renal/divalent Pericardial effusion continue colchicine Hx CAD stable and well compensated at this time Hx Afib start Eliquis . Full code Boots Patient requires ongoing hospitalization abd pain -workup and management? pancretaitis-iv hydratiion ,bowel rest ,pain management. Quality Stroke Does the patient have a stroke diagnosis?: No Reason for No Anti-thrombotic by Day Two: Contraindicated VTE Prior VTE?: No VTE Risk Level:: Surgical - high VTE Device Contraindication: N/A - Device Ordered VTE Drug Contraindication: Treatment Not Indicated
[2025-03-12] MEDS: Potassium Chloride/H20 10 MEQ/100 ML PIGGYBACK 100 MEQ IV ×2 (16:14→17:19)
[2025-03-12 19:41] VITALS: BP 139/73; PULSE 64; RESP 16; TEMP 36.3; O2SAT 95
--- NOTE | 2025-03-12 21:12 | PM.EVENT ---
Event Note Date of Service: 03/12/25 Event Note: Abdominal pelvis CT scan without contrast results (reviewed): Impression: Mild peripancreatic stranding may indicate acute pancreatitis. No fluid collection. Evidence of volume overload including small bilateral pleural effusions, trace ascites and anasarca. Gallbladder wall thickening and pericholecystic fluid is likely secondary to systemic pathology rather than acute cholecystitis. Dependent increased attenuation in the gallbladder is likely vicarious excretion of previously administered contrast. Cholelithiasis and sludge may also be considered. A right upper quadrant ultrasound may be helpful if there is clinical concern for acute cholecystitis. Mild multifocal retention of previously administered contrast within the kidneys can be seen in the setting of renal pathology. Air within the bladder could be secondary to recent instrumentation. Emphysematous cystitis may also be considered. Correlate with urinalysis. Question mild wall thickening of the small bowel which could be secondary to edema. Enteritis of an infectious etiology is considered less likely. Plan: We will obtain urinalysis and abdominal ultrasound to assess for acute cholecystitis; continue gentle IV fluids and pain control. Patient is currently NPO. Time Spent With Patient Time: Total time managing care of this patient today ____ minutes.
[2025-03-13] VITALS (9 sets, daily range): BP systolic 132–176; BP diastolic 66–91; PULSE 54–82; RESP 16–18; TEMP 36.2–36.4; O2SAT 94–97
--- NOTE | 2025-03-13 | ECG_ITS ---
Test Reason : RN order Blood Pressure : */* mmHG Vent. Rate : 64 BPM Atrial Rate : 64 BPM P-R Int : 164 ms QRS Dur : 80 ms QT Int : 456 ms P-R-T Axes : 53 12 55 degrees QTcB Int : 470 ms Normal sinus rhythm Normal ECG When compared with ECG of 12-Mar-2025 07:59, Nonspecific T wave abnormality no longer evident in Anterior leads Referred By: Sal Greenfield Electronically Signed By: Russell Hummel
[2025-03-13] MEDS: Lactated Ringers 1,000 ML 80 ML IVCONT ×2 (02:31→14:49)
--- NOTE | 2025-03-13 06:37 | PC.NURSE ---
Pt bladder scanned for 491mls around 0000. MD notified. Straight cathertization performed for 550mls.
--- NOTE | 2025-03-13 06:37 | PC.NURSE ---
Pt given PRN Hydralazine for systolic blood pressure in the 180s. Patient with sinus tachycardia about 1.5hrs later. MD notified. Likely reflex tachycardia from hydralazine.
[2025-03-13 07:48] LABS: Alanine Aminotransferase 19 U/L (0-31); Albumin Level 2.6 g/dL (3.5-5.0); Alkaline Phosphatase 179 U/L (39-117); Anion Gap 9 (12-20); Aspartate Amino Transferase 61 U/L (5-31); Blood Urea Nitrogen 14 mg/dL (9-16); Calcium 7.8 mg/dL (8.4-10.2); Carbon Dioxide 26 mmol/L (22-29); Chloride 104 mmol/L (96-108); Creatinine Clr Calc Pharmacy 89.7; Estimated Glomerular Filt Rate > 60; Potassium 3.4 mmol/L (3.3-5.1); Sodium 136 mmol/L (135-145); Total Protein 6.7 g/dL (6.5-8.0)
[2025-03-13 08:01] LABS: Lipase 834 U/L (8-78)
[2025-03-13] MEDS: 0.9 % Sodium Chloride Flush 3 ML SYRINGE IVFLUSH (09:06)
[2025-03-13 09:19] LABS: Hematocrit 31.1 % (37.0-47.0); Hemoglobin 10.0 g/dl (12.0-16.0); Mean Corpuscular HGB Conc 32.2 g/dl (31.0-35.0); Mean Corpuscular Hemoglobin 29.2 pg (27.0-33.0); Mean Corpuscular Volume 90.7 fL (80.0-98.0); NRBC Abs Auto 0.000 X10*3/uL (0.0-0.012); NRBC Pct Auto 0.0 /100WBC (0.0-0.2); Platelet Count 315 X10*3/uL (160-400); Red Blood Count 3.43 X10*6/uL (4.20-5.50); White Blood Count 14.7 X10*3/uL (4.8-10.8)
[2025-03-13 09:31] LABS: Troponin-I High Sensitivity < 2.7 ng/L (<3.5-17.0)
--- NOTE | 2025-03-13 11:01 | MHC.CM.PN ---
Per ROUNDS discussion, Patient is not yet medically cleared for dc (new Pancreatitis/GI work up); the insurance auth that [facility] obtained will today; new auth will be needed at time of dc. CM will continue to follow.
--- NOTE | 2025-03-13 15:31 | P.CONCA_ITS ---
History of Present Illness History of Present Illness Date of Service: 03/13/25 Requesting physician: Sal Greenfield Chief complaint: Chest pain Narrative: [age] year female presenting with pancreatitis. She is complaining of abdominal and chest discomfort radiating to the back. She is saying that this is similar to her previous pancreatitis episodes. She is not an alcoholic. Significant surgical history with previous herniorrhaphy which was complicated with abscess formation in the abdomen requiring prolonged antibiotics. During the hospitalization she developed atrial flutter which was difficult to control and eventually she required amiodarone which she has been taking regularly since then. She also had some blood loss due to uterine fibroids but underwent embolization for that and is back on [facility] at this point. She is saying she has significant pain in her abdomen going to her back. She also has retching which is classic for pancreatitis. [facility] Past Medical History Medical History Pancreatitis Insomnia Bilateral knee pain Polyarthralgia MARKIE (acute kidney injury) Back pain Arthritis History of transfusion of packed red blood cells Anemia Cardiomyopathy MARKIE (acute kidney injury) MARKIE (acute kidney injury) Anxiety Small bowel obstruction Myocardial infarction NSTEMI (non-ST elevated myocardial infarction) NSVT (nonsustained ventricular tachycardia) PVC (premature ventricular contraction) Hypertension Perforated diverticulum Irritable bowel syndrome with constipation Barretts esophagus GERD (gastroesophageal reflux disease) Family History Family History Father Colon cancer Congestive heart failure Paternal Aunt Colon cancer Mother Congestive heart failure Afib Surgical History Surgical History S/P colon resection PIC line (peripherally inserted central catheter) removal History of low anterior resection of rectum Status post cardiac catheterization Ileostomy in place H/O dilation and curettage History of exploratory laparotomy (05/11/23) S/P colostomy Colovesical fistula History of esophagogastroduodenoscopy (EGD) Hx of colonoscopy Social History Social History Household Members: None Housing: House Are you a primary daycare manager to a significant other at home: No Do you presently have visiting nurse or other home services: Yes ([facility] on hold) Alcohol intake: never Comment: located near nursing station Patient Tobacco Use Status: Former Tobacco user Tobacco use type: Cigarette Cigarette Packs Per Day: 0.5 Cigarettes Per Day: 10.0 Years Smoked: 25 e-Cigarette/Vaping Use: Former Use Second Hand Smoke Exposure: No Substance Use Type: Marijuana Advance Directives Date on File: 12/29/23 service: No Cognitive needs: No Hearing needs: No Vision needs: Yes Meds Allergies Allergy/AdvReac Type Severity Reaction Status Date / Time clams Allergy Severe Stomach Verified 02/28/25 11:41 Upset clavulanic acid (Augmentin) Allergy Unknown GI, Verified 02/28/25 11:41 Difficulty breathing codeine (CODEINE) Allergy Unknown SENSITIVIT Verified 02/28/25 11:41 Y erythromycin base Allergy Unknown GI, DIFF Verified 02/28/25 11:41 (Erythromycin Base) BREATHING Sulfa (Sulfonamide Allergy Unknown RASH Verified 02/28/25 11:41 Antibiotics) morphine (MORPHINE) AdvReac Severe Difficulty Verified 02/28/25 11:41 Breathing aspirin (Aspirin) AdvReac Mild STOMACH Verified 02/28/25 11:41 UPSET melatonin AdvReac Vomiting Verified 02/28/25 11:41 Active Medications: Current Medications Amiodarone HCl (Amiodarone Hcl 200 Mg Tablet) 200 mg PO DAILY [facility] Last Admin: 03/13/25 12:11 Dose: Not Given Apixaban (Apixaban 5 Mg Tablet) 5 mg PO BID [facility] Last Admin: 03/13/25 12:11 Dose: Not Given Atorvastatin Calcium (Atorvastatin Calcium 20 Mg Tablet) 20 mg PO BEDTIME [facility] Last Admin: 03/12/25 20:29 Dose: 20 mg Calcium Carbonate (Calcium Carbonate 750 Mg Tab.Chew) 750 mg PO Q4H PRN PRN Reason: Heartburn Last Admin: 03/11/25 15:54 Dose: 750 mg Carisoprodol (Carisoprodol 350 Mg Tablet) 350 mg PO BEDTIME [facility] Last Admin: 03/12/25 20:29 Dose: 350 mg Carvedilol (Carvedilol 6.25 Mg Tablet) 6.25 mg PO BID [facility]; Protocol Last Admin: 03/13/25 12:11 Dose: Not Given Colchicine (Colchicine 0.6 Mg Tablet) 0.6 mg PO DAILY [facility] Last Admin: 03/13/25 12:12 Dose: Not Given Gabapentin (Gabapentin 100 Mg Capsule) 100 mg PO TID [facility] Last Admin: 03/13/25 14:50 Dose: Not Given Hydromorphone HCl (Hydromorphone Hcl 1 Mg/Ml Syringe) 2 mg IVPUSH Q3H PRN; Protocol PRN Reason: Pain, Severe (Pain Scale 7-10) Last Admin: 03/13/25 14:49 Dose: 2 mg Lactated Ringer's (Lr) 1,000 mls @ 80 mls/hr IVCONT .[id number] [facility] Last Admin: 03/13/25 14:49 Dose: 80 mls/hr Lidocaine (Lidocaine 4 % Patch Adh..Patch) 1 patch TRANSDERMA DAILY [facility]; Protocol Last Admin: 03/13/25 09:10 Dose: Not Given Lorazepam (Lorazepam 0.5 Mg Tablet) 0.5 mg PO ONCE PRN PRN Reason: Anxiety Last Admin: 03/12/25 08:33 Dose: 0.5 mg Magnesium Hydroxide (Milk Of Magnesia 30 Ml Oral.Susp) 30 ml PO DAILY PRN PRN Reason: Constipation Magnesium Oxide (Magnesium Oxide 400 Mg Tablet) 800 mg PO DAILY [facility] Last Admin: 03/13/25 12:13 Dose: Not Given Melatonin (Melatonin 3 Mg Tablet) 6 mg PO BEDTIME PRN PRN Reason: Insomnia Mirtazapine (Mirtazapine 15 Mg Tablet) 15 mg PO BEDTIME [facility] Last Admin: 03/12/25 20:28 Dose: 15 mg Multivitamins/Vitamin C (Multivitamin Tablet) 1 tab PO DAILY [facility] Last Admin: 03/13/25 12:13 Dose: Not Given Ondansetron HCl (Ondansetron Odt 4 Mg Tab.Rapdis) 4 mg TRANSLINGU Q6H PRN PRN Reason: Nausea and Vomiting Last Admin: 03/13/25 12:21 Dose: 4 mg Pantoprazole Sodium (Pantoprazole Sodium 40 Mg/10 Ml Vial) 40 mg IVPUSH BID@0630,1630 [facility] Last Admin: 03/13/25 05:28 Dose: 40 mg Prednisone (Prednisone 20 Mg Tablet) 40 mg PO DAILY [facility] Last Admin: 03/13/25 12:13 Dose: Not Given Sodium Chloride (0.9 % Sodium Chloride Flush 3 Ml Syringe) 3 ml IVFLUSH QSHIFT [facility] Last Admin: 03/13/25 09:06 Dose: 3 ml Home Medications ?Medication ?Instructions ?Recorded ?Confirmed ?Last Taken ?Type mirtazapine 15 mg tablet 15 mg PO BEDTIME 11/30/2303/19/24 09:00 History multivitamin with minerals-folic 1 tab PO DAILY 03/01/25 02/18/25 History acid 200 mcg chewable tablet (Multivitamin Gummies) carisoprodol 350 mg tablet 350 mg PO BEDTIME 03/19/24 03/01/25 03/19/24 09:00 History magnesium glycinate 400 mg PO DAILY 03/19/2402/18/25 History ondansetron 4 mg disintegrating 4 mg PO Q8H PRN Nausea And Vomiting 01/15/25 03/01/25 02/18/25 History tablet amiodarone 200 mg tablet 200 mg PO DAILY 02/19/2502/18/25 History apixaban 5 mg tablet (Eliquis) 5 mg PO BID 02/19/2502/18/25 History colchicine 0.6 mg tablet 0.6 mg PO DAILY 02/19/2502/18/25 History esomeprazole magnesium 20 mg 20 mg PO DAILY@0630 02/1903/01/25 02/18/25 History capsule,delayed release (Nexium) gabapentin 100 mg capsule 100 mg PO Q8H 02/19/2503/0102/18/25 History Physical Exam 2 Vital Signs: Vital Signs: Last Vital Signs Temp 97.3 F 03/13/25 11:27 Pulse 67 03/13/25 11:27 Resp 16 03/13/25 11:27 BP 136/75 03/13/25 11:27 Pulse Ox 97 03/13/25 11:27 O2 Del Method Room Air 03/13/25 11:27 O2 Flow Rate 2 03/10/25 17:40 BMI result Body Mass Index 25.6 GENERAL APPEARANCE: Distressed due to pain. NECK: no carotid bruit, no jugular venous distention. SKIN: no suspicious lesions, warm and dry. HEART: no murmurs, regular rate and rhythm. LUNGS: clear to auscultation bilaterally. ABDOMEN: Soft, tenderness epigastrium. Right-sided ileostomy. EXTREMITIES: no edema. PERIPHERAL PULSES: equal. NEUROLOGIC: No gross deficits, AAO X 3 Objective Labs and Meds 03/13/25 08:46 03/13/25 07:10 Lab results: Laboratory Results - last 24 hr 03/13/25 03/13/25 03/13/25 07:10 08:34 08:46 WBC 14.7 H RBC 3.43 L Hgb 10.0 L Hct 31.1 L MCV 90.7 MCH 29.2 MCHC 32.2 RDW 14.9 Plt Count 315 MPV 9.7 Absolute Nucleated RBC 0.000 Nucleated RBC % (auto) 0.0 Hold Purple Top SEE NOTE Sodium 136 Potassium 3.4 Chloride 104 Carbon Dioxide 26 Anion Gap 9 L BUN 14 Creatinine 0.54 Estim Creat Clear Calc 89.7 Estimated GFR > 60 Random Glucose 101 Calcium 7.8 L Total Bilirubin 0.3 AST 61 H ALT 19 Alkaline Phosphatase 179 H Troponin I High Sens < 2.7 Total Protein 6.7 Albumin 2.6 L Lipase 834 H Imaging Radiologist's impression: Impressions Abdomen Ultrasound 03/13/25 09:42 IMPRESSION: No cholelithiasis or gross choledocholithiasis. Concerning liver disease/hepatocellular disease/cirrhosis. Trace amount of free fluid, lesser sac and ascites. Electronically signed by: Paulie Beatty MD 03/13/2025 10:19 AM EDT Assessment and Plan (1) Chest pain: Status: Acute Plan Pleasant 65 year female who we have been asked to see for chest pain. She is endorsing more upper abdominal pain radiating to her back. This is due to her pancreatitis episode. She is currently NPO and will be conservatively managed. She had atrial flutter in the past and is currently on amiodarone. She continues to be in sinus rhythm. She is back on Eliquis after uterine fibroid embolization. She is on colchicine for previous pericardial effusion. Etiology of pancreatitis currently is unclear. Agree with supportive care. Thank you for allowing me to participate in the care of your patient. Please feel free to contact me if you have any questions. Procedures Date of Service Date of Service: 03/13/25
--- NOTE | 2025-03-13 17:11 | P.PNIM_ITS ---
Subjective Subjective Date of Service: 03/13/25 Interval History: pancreatitis Review of Systems says abd pain -epigastric pain/some nausea denies urinary c/o Physical Exam 2 Vital Signs: Vital Signs: Last Vital Signs Temp 97.6 F 03/13/25 15:47 Pulse 70 03/13/25 15:47 Resp 16 03/13/25 15:47 BP 147/77 H 03/13/25 15:47 Pulse Ox 94 03/13/25 15:47 O2 Del Method Room Air 03/13/25 15:47 O2 Flow Rate 2 03/10/25 17:40 BMI result Body Mass Index 25.6 Appearance: Alert.? Oriented X3.? cvs: rrr, [id number] . res: clear to auscultation ,no rhonchii or wheezing abd: no rebound or guarding ,bs present,soft,abd pain epigastric (says feels similar to her pancreatitis) ext pulses present , no cyanosis . neuro: nonfocal. Objective Data Active Medications Amiodarone HCl (Amiodarone Hcl 200 Mg Tablet) 200 mg PO DAILY [facility] Last Admin: 03/13/25 12:11 Dose: Not Given Documented By: SANDIP Non-Admin Reason: Nausea Apixaban (Apixaban 5 Mg Tablet) 5 mg PO BID [facility] Last Admin: 03/13/25 12:11 Dose: Not Given Documented By: SANDIP Non-Admin Reason: Nausea Atorvastatin Calcium (Atorvastatin Calcium 20 Mg Tablet) 20 mg PO BEDTIME [facility] Last Admin: 03/12/25 20:29 Dose: 20 mg Documented By: DAWIT Calcium Carbonate (Calcium Carbonate 750 Mg Tab.Chew) 750 mg PO Q4H PRN PRN Reason: Heartburn Last Admin: 03/11/25 15:54 Dose: 750 mg Documented By: DAMON Carisoprodol (Carisoprodol 350 Mg Tablet) 350 mg PO BEDTIME [facility] Last Admin: 03/12/25 20:29 Dose: 350 mg Documented By: DAWIT Carvedilol (Carvedilol 6.25 Mg Tablet) 6.25 mg PO BID [facility]; Protocol Last Admin: 03/13/25 12:11 Dose: Not Given Documented By: SANDIP Non-Admin Reason: Nausea Colchicine (Colchicine 0.6 Mg Tablet) 0.6 mg PO DAILY [facility] Last Admin: 03/13/25 12:12 Dose: Not Given Documented By: SANDIP Non-Admin Reason: Nausea Gabapentin (Gabapentin 100 Mg Capsule) 100 mg PO TID [facility] Last Admin: 03/13/25 14:50 Dose: Not Given Documented By: SANDIP Non-Admin Reason: NPO Hydromorphone HCl (Hydromorphone Hcl 1 Mg/Ml Syringe) 2 mg IVPUSH Q3H PRN; Protocol PRN Reason: Pain, Severe (Pain Scale 7-10) Last Admin: 03/13/25 14:49 Dose: 2 mg Documented By: SANDIP Lactated Ringer's (Lr) 1,000 mls @ 80 mls/hr IVCONT .[id number] [facility] Last Admin: 03/13/25 14:49 Dose: 80 mls/hr Documented By: SANDIP Lidocaine (Lidocaine 4 % Patch Adh..Patch) 1 patch TRANSDERMA DAILY [facility]; Protocol Last Admin: 03/13/25 09:10 Dose: Not Given Documented By: SANDIP Non-Admin Reason: Patient Refused Lorazepam (Lorazepam 0.5 Mg Tablet) 0.5 mg PO ONCE PRN PRN Reason: Anxiety Last Admin: 03/12/25 08:33 Dose: 0.5 mg Documented By: SANDIP Magnesium Hydroxide (Milk Of Magnesia 30 Ml Oral.Susp) 30 ml PO DAILY PRN PRN Reason: Constipation Magnesium Oxide (Magnesium Oxide 400 Mg Tablet) 800 mg PO DAILY [facility] Last Admin: 03/13/25 12:13 Dose: Not Given Documented By: SANDIP Non-Admin Reason: Nausea Melatonin (Melatonin 3 Mg Tablet) 6 mg PO BEDTIME PRN PRN Reason: Insomnia Mirtazapine (Mirtazapine 15 Mg Tablet) 15 mg PO BEDTIME [facility] Last Admin: 03/12/25 20:28 Dose: 15 mg Documented By: DAWIT Multivitamins/Vitamin C (Multivitamin Tablet) 1 tab PO DAILY [facility] Last Admin: 03/13/25 12:13 Dose: Not Given Documented By: SANDIP Non-Admin Reason: Nausea Ondansetron HCl (Ondansetron Odt 4 Mg Tab.Rapdis) 4 mg TRANSLINGU Q6H PRN PRN Reason: Nausea and Vomiting Last Admin: 03/13/25 12:21 Dose: 4 mg Documented By: SANDIP Pantoprazole Sodium (Pantoprazole Sodium 40 Mg/10 Ml Vial) 40 mg IVPUSH BID@0630,1630 [facility] Last Admin: 03/13/25 05:28 Dose: 40 mg Documented By: DAWIT Prednisone (Prednisone 20 Mg Tablet) 40 mg PO DAILY [facility] Last Admin: 03/13/25 12:13 Dose: Not Given Documented By: SANDIP Non-Admin Reason: Nausea Sodium Chloride (0.9 % Sodium Chloride Flush 3 Ml Syringe) 3 ml IVFLUSH QSHIFT [facility] Last Admin: 03/13/25 15:38 Dose: Not Given Documented By: SANDIP Non-Admin Reason: IV Running Labs 03/13/25 08:46 03/13/25 07:10 Labs: Laboratory Results - last 24 hr 03/13/25 03/13/25 07:10 08:46 MCV 90.7 MCH 29.2 MCHC 32.2 RDW 14.9 Plt Count 315 MPV 9.7 Absolute Nucleated RBC 0.000 Nucleated RBC % (auto) 0.0 Hold Purple Top SEE NOTE Anion Gap 9 L Estim Creat Clear Calc 89.7 Estimated GFR > 60 Random Glucose 101 Calcium 7.8 L Total Bilirubin 0.3 AST 61 H ALT 19 Alkaline Phosphatase 179 H Total Protein 6.7 Albumin 2.6 L Lipase 834 H Assessment and Plan (1) Rectal bleeding: Status: Acute (2) Uterine myoma: Status: Acute (3) Acute hypokalemia: Status: Acute (4) Anemia: Status: Acute Plan 65yo F with HTN, HLD, CAD, CHF, pAF on Eliquis, hx pancreatitis, recent subtotal co[place] [facility] [place] with resultant ileostomy bag followed by admission to the ICU at [facility] from 01/20-01/25 for pulmonary edema/pericardial effusion/anemia/new onset a flutter/intra-abdominal abscess/[place] bacteremia after which patient was transferred to [facility] where she has abscesses drained; finished a course of antibiotics and discharged home on 02/17/25. Presented back to the ER on 02/18/25 overnight with a chief complaint of abdominal pain with question of cholecystitis ruled out, discharged home 02/27. 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 abd pain:similar labs seems similar no fever or vomiting lipase trending up patient concern possible pancreatitis plan: ct abd: possible acute pancreatitis ? cystsitis on ct abd -ua added . us abd:No cholelithiasis or gross choledocholithiasis.Concerning liver disease/hepatocellular disease/cirrhosis. Trace amount of free fluid, lesser sac and ascite plan: mrcp Will place NPO, IV fluid, PPIs, antiemetics, CT abdomen., pain contol with iv dilaudidand tylenol. GI and IR following added surgery eval. mild leucocytosis :? reactive to pancreatitis /steriods. mild atelacatsis lungs on ct abd ? cystitis on ct abd ,but no urinary c/o. plan: check ua continue pancreatitis rx, taper striods Acute HypoK/Mag replete IV and PO repleted and resolved. follow renal/divalent Pericardial effusion continue colchicine Hx CAD stable and well compensated at this time Hx Afib start Eliquis . Full code Boots Patient requires ongoing hospitalization abd pain -workup and management? pancretaitis-iv hydratiion ,bowel rest ,pain management. Quality Stroke Does the patient have a stroke diagnosis?: No Reason for No Anti-thrombotic by Day Two: Contraindicated VTE Prior VTE?: No VTE Risk Level:: Surgical - high VTE Device Contraindication: N/A - Device Ordered VTE Drug Contraindication: Treatment Not Indicated
--- NOTE | 2025-03-13 17:43 | PM.CNGS ---
History of Present Illness Consult details Consult date: 03/13/25 Requesting physician: Sal Greenfield Narrative: 65-year-old female patient well known to the surgical service with a complicated surgical history presenting with recurring episodes of pancreatitis, complaining of pain in the epigastrium similar to previous episodes of pancreatitis. A CT abdomen and pelvis revealed peripancreatic stranding suggestive of acute pancreatitis without a fluid collection. Gallbladder showed wall thickening but this was felt to be secondary to systemic pathology rather than acute cholecystitis. Contrast noted within the bile fluid was seen previously and does not appear to be cholelithiasis. A subsequent ultrasound performed today also showed no cholelithiasis or choledocholithiasis to indicate gallstone pancreatitis. Trace fluid was identified. Surgical consultation was requested regarding management of the gallbladder findings. Review of Systems Review of Systems: Yes Unobtainable due to mental condition Neurologic: Reports confusion Psychiatric: Psychiatric: Reports confusion [facility] Past Medical History Medical History (Updated 03/13/25 @ 17:53 by Alvaro Oneil MD) Pancreatitis Insomnia Bilateral knee pain Polyarthralgia MARKIE (acute kidney injury) Back pain Arthritis History of transfusion of packed red blood cells Anemia Cardiomyopathy MARKIE (acute kidney injury) MARKIE (acute kidney injury) Anxiety Small bowel obstruction Myocardial infarction NSTEMI (non-ST elevated myocardial infarction) NSVT (nonsustained ventricular tachycardia) PVC (premature ventricular contraction) Hypertension Perforated diverticulum Irritable bowel syndrome with constipation Barretts esophagus GERD (gastroesophageal reflux disease) Family History Family History Father Colon cancer Congestive heart failure Paternal Aunt Colon cancer Mother Congestive heart failure Afib Surgical History Surgical History (Updated 03/07/25 @ 00:02 by Mihai Calvillo) S/P colon resection PIC line (peripherally inserted central catheter) removal History of low anterior resection of rectum Status post cardiac catheterization Ileostomy in place H/O dilation and curettage History of exploratory laparotomy (05/11/23) S/P colostomy Colovesical fistula History of esophagogastroduodenoscopy (EGD) Hx of colonoscopy Social History Social History Household Members: None Housing: House Are you a primary long term care administrator to a significant other at home: No Do you presently have visiting nurse or other home services: Yes ([facility] on hold) Alcohol intake: never Comment: located near nursing station Patient Tobacco Use Status: Former Tobacco user Tobacco use type: Cigarette Cigarette Packs Per Day: 0.5 Cigarettes Per Day: 10.0 Years Smoked: 25 e-Cigarette/Vaping Use: Former Use Second Hand Smoke Exposure: No Substance Use Type: Marijuana Advance Directives Date on File: 12/29/23 service: No Cognitive needs: No Hearing needs: No Vision needs: Yes Meds Allergies Allergy/AdvReac Type Severity Reaction Status Date / Time clams Allergy Severe Stomach Verified 02/28/25 11:41 Upset clavulanic acid (Augmentin) Allergy Unknown GI, Verified 02/28/25 11:41 Difficulty breathing codeine (CODEINE) Allergy Unknown SENSITIVIT Verified 02/28/25 11:41 Y erythromycin base Allergy Unknown GI, DIFF Verified 02/28/25 11:41 (Erythromycin Base) BREATHING Sulfa (Sulfonamide Allergy Unknown RASH Verified 02/28/25 11:41 Antibiotics) morphine (MORPHINE) AdvReac Severe Difficulty Verified 02/28/25 11:41 Breathing aspirin (Aspirin) AdvReac Mild STOMACH Verified 02/28/25 11:41 UPSET melatonin AdvReac Vomiting Verified 02/28/25 11:41 Active Medications: Current Medications Amiodarone HCl (Amiodarone Hcl 200 Mg Tablet) 200 mg PO DAILY [facility] Last Admin: 03/13/25 12:11 Dose: Not Given Apixaban (Apixaban 5 Mg Tablet) 5 mg PO BID [facility] Last Admin: 03/13/25 12:11 Dose: Not Given Atorvastatin Calcium (Atorvastatin Calcium 20 Mg Tablet) 20 mg PO BEDTIME [facility] Last Admin: 03/12/25 20:29 Dose: 20 mg Calcium Carbonate (Calcium Carbonate 750 Mg Tab.Chew) 750 mg PO Q4H PRN PRN Reason: Heartburn Last Admin: 03/11/25 15:54 Dose: 750 mg Carisoprodol (Carisoprodol 350 Mg Tablet) 350 mg PO BEDTIME [facility] Last Admin: 03/12/25 20:29 Dose: 350 mg Carvedilol (Carvedilol 6.25 Mg Tablet) 6.25 mg PO BID [facility]; Protocol Last Admin: 03/13/25 12:11 Dose: Not Given Colchicine (Colchicine 0.6 Mg Tablet) 0.6 mg PO DAILY [facility] Last Admin: 03/13/25 12:12 Dose: Not Given Gabapentin (Gabapentin 100 Mg Capsule) 100 mg PO TID [facility] Last Admin: 03/13/25 14:50 Dose: Not Given Hydromorphone HCl (Hydromorphone Hcl 1 Mg/Ml Syringe) 2 mg IVPUSH Q3H PRN; Protocol PRN Reason: Pain, Severe (Pain Scale 7-10) Last Admin: 03/13/25 14:49 Dose: 2 mg Lactated Ringer's (Lr) 1,000 mls @ 80 mls/hr IVCONT .[id number] [facility] Last Admin: 03/13/25 14:49 Dose: 80 mls/hr Lidocaine (Lidocaine 4 % Patch Adh..Patch) 1 patch TRANSDERMA DAILY [facility]; Protocol Last Admin: 03/13/25 09:10 Dose: Not Given Lorazepam (Lorazepam 0.5 Mg Tablet) 0.5 mg PO ONCE PRN PRN Reason: Anxiety Last Admin: 03/12/25 08:33 Dose: 0.5 mg Magnesium Hydroxide (Milk Of Magnesia 30 Ml Oral.Susp) 30 ml PO DAILY PRN PRN Reason: Constipation Magnesium Oxide (Magnesium Oxide 400 Mg Tablet) 800 mg PO DAILY [facility] Last Admin: 03/13/25 12:13 Dose: Not Given Melatonin (Melatonin 3 Mg Tablet) 6 mg PO BEDTIME PRN PRN Reason: Insomnia Mirtazapine (Mirtazapine 15 Mg Tablet) 15 mg PO BEDTIME [facility] Last Admin: 03/12/25 20:28 Dose: 15 mg Multivitamins/Vitamin C (Multivitamin Tablet) 1 tab PO DAILY [facility] Last Admin: 03/13/25 12:13 Dose: Not Given Ondansetron HCl (Ondansetron Odt 4 Mg Tab.Rapdis) 4 mg TRANSLINGU Q6H PRN PRN Reason: Nausea and Vomiting Last Admin: 03/13/25 12:21 Dose: 4 mg Pantoprazole Sodium (Pantoprazole Sodium 40 Mg/10 Ml Vial) 40 mg IVPUSH BID@0630,1630 [facility] Last Admin: 03/13/25 05:28 Dose: 40 mg Prednisone (Prednisone 10 Mg Tablet) 30 mg PO DAILY [facility] Sodium Chloride (0.9 % Sodium Chloride Flush 3 Ml Syringe) 3 ml IVFLUSH QSHIFT [facility] Last Admin: 03/13/25 15:38 Dose: Not Given Home Medications ?Medication ?Instructions ?Recorded ?Confirmed ?Last Taken ?Type mirtazapine 15 mg tablet 15 mg PO BEDTIME 11/30/23 03/01/25 03/19/24 09:00 History multivitamin with minerals-folic 1 tab PO DAILY 01/07/24 03/01/25 02/18/25 History acid 200 mcg chewable tablet (Multivitamin Gummies) carisoprodol 350 mg tablet 350 mg PO BEDTIME 03/19/24 03/01/25 03/19/24 09:00 History magnesium glycinate 400 mg PO DAILY 03/19/24 03/01/25 02/18/25 History ondansetron 4 mg disintegrating 4 mg PO Q8H PRN Nausea And Vomiting 01/15/25 03/01/25 02/18/25 History tablet amiodarone 200 mg tablet 200 mg PO DAILY 02/19/25 03/01/25 02/18/25 History apixaban 5 mg tablet (Eliquis) 5 mg PO BID 02/19/25 03/01/25 02/18/25 History colchicine 0.6 mg tablet 0.6 mg PO DAILY 02/19/25 03/01/25 02/18/25 History esomeprazole magnesium 20 mg 20 mg PO DAILY@0630 02/19/25 03/01/25 02/18/25 History capsule,delayed release (Nexium) gabapentin 100 mg capsule 100 mg PO Q8H 02/19/25 03/01/25 02/18/25 History Physical Exam Vital Signs: Vital Signs: Last Vital Signs Temp 97.6 F 03/13/25 15:47 Pulse 70 03/13/25 15:47 Resp 16 03/13/25 15:47 BP 147/77 H 03/13/25 15:47 Pulse Ox 94 03/13/25 15:47 O2 Del Method Room Air 03/13/25 15:47 O2 Flow Rate 2 03/10/25 17:40 BMI result Body Mass Index 25.6 Const: General: anxious and confusion Nutritional Appearance: overweight Orientation/consciousness: confusion Limitations: physical limitations Resp: Effort & Inspection: normal respiratory effort, no audible wheezes and no cough GI: Other: Soft, tenderness in the epigastrium, large abdomen. Small puncture wound in the left lower quadrant draining serous fluid. Ostomy is patent and functioning. Negative Pink sign Neuro: General: confusion Extrem: General: Yes edema Results Labs 03/13/25 08:46 03/13/25 07:10 Labs: Abnormal lab results 03/13/25 03/13/25 Range/Units 07:10 08:46 WBC 14.7 H (4.8-10.8) X10*3/uL RBC 3.43 L (4.20-5.50) X10*6/uL Hgb 10.0 L (12.0-16.0) g/dl Hct 31.1 L (37.0-47.0) % Anion Gap 9 L (12-20) Calcium 7.8 L (8.4-10.2) mg/dL AST 61 H (5-31) U/L Alkaline Phosphatase 179 H (39-117) U/L Albumin 2.6 L (3.5-5.0) g/dL Lipase 834 H (8-78) U/L Short CBC 03/13/25 Range/Units 08:46 WBC 14.7 H (4.8-10.8) X10*3/uL Hgb 10.0 L (12.0-16.0) g/dl Hct 31.1 L (37.0-47.0) % Plt Count 315 (160-400) X10*3/uL BMP 03/13/25 07:10 Sodium 136 Potassium 3.4 Chloride 104 Carbon Dioxide 26 BUN 14 Creatinine 0.54 Calcium 7.8 L Liver Function 03/13/25 Range/Units 07:10 Total Bilirubin 0.3 (0.0-1.0) mg/dL AST 61 H (5-31) U/L ALT 19 (0-31) U/L Alkaline Phosphatase 179 H (39-117) U/L Albumin 2.6 L (3.5-5.0) g/dL Urine 02/28/25 Range/Units 21:50 Urine Color Yellow Urine Appearance Clear Urine pH 6.0 (5.0-9.0) Ur Specific [place] >= 1.030 H (1.005-1.025) Urine Protein 30 (1+) H (Neg-Trace) mg/dL Urine Glucose (UA) Negative (Negative) mg/dL All other labs normal. Assessment and Plan (1) Pancreatitis: Qualifiers: Acute pancreatitis complication: no infection or necrosis Chronicity: acute Pancreatitis type: unspecified pancreatitis type Qualified Code(s): K85.90 - Acute pancreatitis without necrosis or infection, unspecified Status: Acute Plan 65-year-old female patient with recurring pancreatitis of unknown etiology. Workup of the gallbladder has been negative to date and there was no evidence of cholelithiasis to indicate gallstone pancreatitis. Agree with the pain in MRI to further evaluate the pancreas. No surgical intervention recommended at this time. Procedures Date of Service Date of Service: 03/13/25
[2025-03-13 22:07] LABS: Appearance Urine Clear; Glucose Urine UA Negative (Negative); PH 5.5 (5.0-9.0); Specific Gravity - Urine 1.025 (1.005-1.025); UMIC TRIGGER UA YES
--- NOTE | 2025-03-13 23:00 | P.PNGI_ITS ---
Subjective Subjective Date of Service: 03/13/25 Interval History: patient still having pain and nausea CT with pncreatitis and posible cholecystitis Critical Care Time (minutes): 0 Physical Exam 2 Vital Signs: Vital Signs: Last Vital Signs Temp 97.2 F 03/13/25 19:54 Pulse 78 03/13/25 20:21 Resp 18 03/13/25 19:54 BP 176/91 H 03/13/25 20:21 Pulse Ox 96 03/13/25 19:54 O2 Del Method Room Air 03/13/25 19:54 O2 Flow Rate 2 03/10/25 17:40 BMI result Body Mass Index 25.6 EXAM: GENERAL: The patient is frail VITAL SIGNS:see workflow HEENT: Nonicteric sclerae, PERRLA, EOMI. Oropharynx clear. Moist mucous membranes. Conjunctivae appear well perfused. No thyroid mass. CHEST: Chest wall is nontender. HEART: Regular rate and rhythm without murmurs. LUNGS: Clear to auscultation bilaterally. ABDOMEN: Soft, positive bowel sounds, tender eoigastric area, no organomegaly.no flank tenderness--stoma SKIN: No rash, no excessive bruising, petechiae, or purpura. NEUROLOGIC: Cranial nerves II-XII intact without motor/sensory deficit. Psych: normal affec Objective Data Labs 03/13/25 08:46 03/13/25 07:10 Labs: Laboratory Results - last 24 hr 03/13/25 03/13/25 03/13/25 07:10 08:34 08:46 WBC 14.7 H RBC 3.43 L Hgb 10.0 L Hct 31.1 L MCV 90.7 MCH 29.2 MCHC 32.2 RDW 14.9 Plt Count 315 MPV 9.7 Absolute Nucleated RBC 0.000 Nucleated RBC % (auto) 0.0 Hold Purple Top SEE NOTE Sodium 136 Potassium 3.4 Chloride 104 Carbon Dioxide 26 Anion Gap 9 L BUN 14 Creatinine 0.54 Estim Creat Clear Calc 89.7 Estimated GFR > 60 Random Glucose 101 Calcium 7.8 L Total Bilirubin 0.3 AST 61 H ALT 19 Alkaline Phosphatase 179 H Troponin I High Sens < 2.7 Total Protein 6.7 Albumin 2.6 L Lipase 834 H Urine Color Urine Appearance Urine pH Ur Specific [place] Urine Protein Urine Glucose (UA) Urine Ketones Urine Blood Urine Nitrite Ur Leukocyte Esterase Urine RBC Urine WBC Ur Squamous Epith Cells Urine Bacteria Hyaline Casts Granular Casts 03/13/25 21:09 WBC RBC Hgb Hct MCV MCH MCHC RDW Plt Count MPV Absolute Nucleated RBC Nucleated RBC % (auto) Hold Purple Top Sodium Potassium Chloride Carbon Dioxide Anion Gap BUN Creatinine Estim Creat Clear Calc Estimated GFR Random Glucose Calcium Total Bilirubin AST ALT Alkaline Phosphatase Troponin I High Sens Total Protein Albumin Lipase Urine Color Yellow Urine Appearance Clear Urine pH 5.5 Ur Specific [place] 1.025 Urine Protein 30 (1+) H Urine Glucose (UA) Negative Urine Ketones Trace Urine Blood Small (1+) H Urine Nitrite Negative Ur Leukocyte Esterase Small (1+) H Urine RBC 0-2 Urine WBC 11-20 Ur Squamous Epith Cells 3-5 Urine Bacteria None Seen Hyaline Casts 3-5 Granular Casts Present Microbiology Microbiology Results: Microbiology 02/28/25 22:40 Blood - Central Line Blood Culture - Final No growth after 5 days. 02/28/25 22:40 Blood - Central Line Blood Culture - Final No growth after 5 days. Procedures Date of Service Date of Service: 03/13/25 Progress Note: A&P Assessment and plan (1) Pancreatitis: Status: Acute Plan 1/ Pancreatitis, and possible cholecystitis, LFT slightly elevated PLAN: 1/ MRCP--if neg or non diagnostic then HIDA Time Spent With Patient Time: Total time managing care of this patient today ____ minutes. Quality Stroke Does the patient have a stroke diagnosis?: No Reason for No Anti-thrombotic by Day Two: Contraindicated VTE Prior VTE?: No VTE Risk Level:: Surgical - high VTE Device Contraindication: N/A - Device Ordered VTE Drug Contraindication: Treatment Not Indicated
[2025-03-14] VITALS (7 sets, daily range): BP systolic 119–138; BP diastolic 62–75; PULSE 66–84; RESP 12–20; TEMP 36.1–36.7; O2SAT 94–96
[2025-03-14] MEDS: 0.9 % Sodium Chloride Flush 3 ML SYRINGE IVFLUSH ×3 (01:01→21:26)
[2025-03-14] MEDS: Lactated Ringers 1,000 ML 80 ML IVCONT (03:08)
[2025-03-14 08:55] LABS: Alanine Aminotransferase 12 U/L (0-31); Albumin Level 2.4 g/dL (3.5-5.0); Alkaline Phosphatase 145 U/L (39-117); Anion Gap 15 (12-20); Aspartate Amino Transferase 41 U/L (5-31); Blood Urea Nitrogen 8 mg/dL (9-16); Calcium 7.5 mg/dL (8.4-10.2); Carbon Dioxide 22 mmol/L (22-29); Chloride 102 mmol/L (96-108); Creatinine Clr Calc Pharmacy 98.9; Estimated Glomerular Filt Rate > 60; Lipase 219 U/L (8-78); Potassium 2.8 mmol/L (3.3-5.1); Sodium 136 mmol/L (135-145); Total Protein 6.1 g/dL (6.5-8.0)
[2025-03-14 09:22] LABS: Magnesium 1.3 mg/dL (1.6-2.6)
[2025-03-14] MEDS: Magnesium Sulfate/H2O 2 GM/50 ML PIGGYBACK IV (09:57)
[2025-03-14] MEDS: Potassium Chloride/H20 10 MEQ/100 ML PIGGYBACK 100 MEQ IV ×6 (10:04→16:23)
--- NOTE | 2025-03-14 13:16 | MHC.CM.PN ---
EMR reviewed and per MD rounds, pt is not medically cleared for discharge due to management of pancreatitis, and electrolyte abnormalities.
--- NOTE | 2025-03-14 15:19 | P.PNIM_ITS ---
Subjective Subjective Date of Service: 03/14/25 Interval History: pancreatitis Review of Systems abd pain improving no urinary c/o Review of Systems: Yes all other systems are reviewed and are negative Physical Exam 2 Vital Signs: Vital Signs: Last Vital Signs Temp 97.1 F 03/14/25 11:47 Pulse 69 03/14/25 11:47 Resp 12 03/14/25 11:47 BP 119/63 03/14/25 11:47 Pulse Ox 94 03/14/25 11:47 O2 Del Method Room Air 03/14/25 11:47 O2 Flow Rate 2 03/10/25 17:40 BMI result Body Mass Index 25.6 Appearance: Alert.? Oriented X3.? cvs: rrr, [id number] . res: clear to auscultation ,no rhonchii or wheezing abd: no rebound or guarding ,bs present,soft,abd pain epigastric (says feels similar to her pancreatitis) ext pulses present , no cyanosis . neuro: nonfocal. Objective Data Active Medications Amiodarone HCl (Amiodarone Hcl 200 Mg Tablet) 200 mg PO DAILY [facility] Last Admin: 03/14/25 08:24 Dose: 200 mg Documented By: SANDIP Apixaban (Apixaban 5 Mg Tablet) 5 mg PO BID [facility] Last Admin: 03/14/25 08:24 Dose: 5 mg Documented By: SANDIP Atorvastatin Calcium (Atorvastatin Calcium 20 Mg Tablet) 20 mg PO BEDTIME [facility] Last Admin: 03/13/25 20:21 Dose: 20 mg Documented By: KENNY Calcium Carbonate (Calcium Carbonate 750 Mg Tab.Chew) 750 mg PO Q4H PRN PRN Reason: Heartburn Last Admin: 03/11/25 15:54 Dose: 750 mg Documented By: DAMON Carisoprodol (Carisoprodol 350 Mg Tablet) 350 mg PO BEDTIME [facility] Last Admin: 03/13/25 20:20 Dose: 350 mg Documented By: KENNY Carvedilol (Carvedilol 6.25 Mg Tablet) 6.25 mg PO BID [facility]; Protocol Last Admin: 03/14/25 08:24 Dose: 6.25 mg Documented By: SANDIP Colchicine (Colchicine 0.6 Mg Tablet) 0.6 mg PO DAILY [facility] Last Admin: 03/14/25 08:24 Dose: 0.6 mg Documented By: SANDIP Gabapentin (Gabapentin 100 Mg Capsule) 100 mg PO TID [facility] Last Admin: 03/14/25 14:47 Dose: 100 mg Documented By: SANDIP Hydromorphone HCl (Hydromorphone Hcl 1 Mg/Ml Syringe) 2 mg IVPUSH Q3H PRN; Protocol PRN Reason: Pain, Severe (Pain Scale 7-10) Last Admin: 03/14/25 14:45 Dose: 2 mg Documented By: SANDIP Potassium Chloride (Potassium Chloride/H20) 10 meq in 100 mls @ 100 mls/hr IV Q1H [facility] Stop: 03/14/25 16:59 Lidocaine (Lidocaine 4 % Patch Adh..Patch) 1 patch TRANSDERMA DAILY [facility]; Protocol Last Admin: 03/14/25 08:26 Dose: Not Given Documented By: SANDIP Non-Admin Reason: Patient Refused Lorazepam (Lorazepam 0.5 Mg Tablet) 0.5 mg PO ONCE PRN PRN Reason: Anxiety Last Admin: 03/12/25 08:33 Dose: 0.5 mg Documented By: SANDIP Magnesium Hydroxide (Milk Of Magnesia 30 Ml Oral.Susp) 30 ml PO DAILY PRN PRN Reason: Constipation Magnesium Oxide (Magnesium Oxide 400 Mg Tablet) 800 mg PO DAILY [facility] Last Admin: 03/14/25 08:24 Dose: 800 mg Documented By: SANDIP Melatonin (Melatonin 3 Mg Tablet) 6 mg PO BEDTIME PRN PRN Reason: Insomnia Mirtazapine (Mirtazapine 15 Mg Tablet) 15 mg PO BEDTIME [facility] Last Admin: 03/13/25 20:21 Dose: 15 mg Documented By: KENNY Multivitamins/Vitamin C (Multivitamin Tablet) 1 tab PO DAILY [facility] Last Admin: 03/14/25 08:26 Dose: Not Given Documented By: SANDIP Non-Admin Reason: Patient Refused Ondansetron HCl (Ondansetron Odt 4 Mg Tab.Rapdis) 4 mg TRANSLINGU Q6H PRN PRN Reason: Nausea and Vomiting Last Admin: 03/14/25 12:12 Dose: 4 mg Documented By: SANDIP Pantoprazole Sodium (Pantoprazole Sodium 40 Mg/10 Ml Vial) 40 mg IVPUSH BID@0630,1630 [facility] Last Admin: 03/14/25 05:45 Dose: 40 mg Documented By: KIKA-EUGEJ Prednisone (Prednisone 10 Mg Tablet) 30 mg PO DAILY [facility] Last Admin: 03/14/25 08:24 Dose: 30 mg Documented By: SANDIP Sodium Chloride (0.9 % Sodium Chloride Flush 3 Ml Syringe) 3 ml IVFLUSH QSHIFT [facility] Last Admin: 03/14/25 08:28 Dose: 3 ml Documented By: SANDIP Labs 03/13/25 08:46 03/14/25 08:21 Labs: Laboratory Results - last 24 hr 03/13/25 03/14/25 21:09 08:21 Anion Gap 15 Estim Creat Clear Calc 98.9 Estimated GFR > 60 Random Glucose 76 Calcium 7.5 L Magnesium 1.3 L* Total Bilirubin 0.3 AST 41 H ALT 12 Alkaline Phosphatase 145 H Total Protein 6.1 L Albumin 2.4 L Lipase 219 H Urine Color Yellow Urine Appearance Clear Urine pH 5.5 Ur Specific [place] 1.025 Urine Protein 30 (1+) H Urine Glucose (UA) Negative Urine Ketones Trace Urine Blood Small (1+) H Urine Nitrite Negative Ur Leukocyte Esterase Small (1+) H Urine RBC 0-2 Urine WBC 11-20 Ur Squamous Epith Cells 3-5 Urine Bacteria None Seen Hyaline Casts 3-5 Granular Casts Present Assessment and Plan (1) Rectal bleeding: Status: Acute (2) Uterine myoma: Status: Acute (3) Acute hypokalemia: Status: Acute (4) Anemia: Status: Acute Plan 65yo F with HTN, HLD, CAD, CHF, pAF on Eliquis, hx pancreatitis, recent subtotal colectomy/hernia repair at [facility] [place] [place] on 01/07/2025 with resultant ileostomy bag followed by admission to the ICU at [facility] from 01/20-01/25 for pulmonary edema/pericardial effusion/anemia/new onset a flutter/intra-abdominal abscess/[place] bacteremia after which patient was transferred to [facility] where she has abscesses drained; finished a course of antibiotics and discharged home on 02/17/25. Presented back to the ER on 02/18/25 overnight with a chief complaint of abdominal pain with question of cholecystitis ruled out, discharged home 02/27. 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 acute pancreatitis: abd pain /nausea /vomiting improving Still hesitant to take p.o. intake Continue IV hydration, pain management. plan: ct abd: possible acute pancreatitis ? cystsitis on ct abd -ua added . us abd:No cholelithiasis or gross choledocholithiasis.Concerning liver disease/hepatocellular disease/cirrhosis. Trace amount of free fluid, lesser sac and ascite plan: mrcp-No evidence of cholelithiasis or choledocholithiasis. Diffuse edema of the mesenteric fat, which may be secondary to pancreatitis, although this finding is not localized to the peripancreatic region.Nodular liver contour, suggestive of cirrhosis. trial of clears , IV fluid, PPIs, antiemetics, CT abdomen., pain contol with iv dilaudidand tylenol. GI and IR following surgery eval-no acute surgerical intervention. mild leucocytosis :? reactive to pancreatitis /steriods. mild atelacatsis lungs on ct abd ? cystitis on ct abd ,but no urinary c/o. plan: check ua -minimum pyuria, no bacteriuria, patient has no urinary symptoms. continue pancreatitis rx, taper striods Acute HypoK/Mag replete IV and PO repleted and resolved. follow renal/divalent Pericardial effusion continue colchicine Hx CAD stable and well compensated at this time Hx Afib start Eliquis . Full code Boots Patient requires ongoing hospitalization abd pain -workup and management? pancretaitis-iv hydratiion ,bowel rest ,pain management. Quality Stroke Does the patient have a stroke diagnosis?: No Reason for No Anti-thrombotic by Day Two: Contraindicated VTE Prior VTE?: No VTE Risk Level:: Surgical - high VTE Device Contraindication: N/A - Device Ordered VTE Drug Contraindication: Treatment Not Indicated
--- NOTE | 2025-03-14 16:51 | P.CNUR_ITS ---
History of Present Illness Consult details Consult date: 03/14/25 Requesting physician: Sal Greenfield Narrative: Kia Phelps is a 65 y/o F with acute pancreatitis and a PMH of colovesical fistula, s/p ileostomy. Multiple hospital admissions. Patient states voiding without difficulty, denies dysuria, denies gross hematuria. U/A 03/13/25- 0-2 RBC's, 11-20 WBC's. CTAP- 03/12/25- findings regarding bladder changes likely due to prior catheterization, Pt symptoms and labs not clinically consistent with Emphyseamatous cystitis. Review of Systems 2 Review of Systems: complains of Abdominal pain and nausea PMFSH Past Medical History Medical History Pancreatitis Insomnia Bilateral knee pain Polyarthralgia MARKIE (acute kidney injury) Back pain Arthritis History of transfusion of packed red blood cells Anemia Cardiomyopathy MARKIE (acute kidney injury) MARKIE (acute kidney injury) Anxiety Small bowel obstruction Myocardial infarction NSTEMI (non-ST elevated myocardial infarction) NSVT (nonsustained ventricular tachycardia) PVC (premature ventricular contraction) Hypertension Perforated diverticulum Irritable bowel syndrome with constipation Barretts esophagus GERD (gastroesophageal reflux disease) Family History Family History Father Colon cancer Congestive heart failure Paternal Aunt Colon cancer Mother Congestive heart failure Afib Surgical History Surgical History S/P colon resection PIC line (peripherally inserted central catheter) removal History of low anterior resection of rectum Status post cardiac catheterization Ileostomy in place H/O dilation and curettage History of exploratory laparotomy (05/11/23) S/P colostomy Colovesical fistula History of esophagogastroduodenoscopy (EGD) Hx of colonoscopy Social History Social History Household Members: None Housing: House Are you a primary home care assistant to a significant other at home: No Do you presently have visiting nurse or other home services: Yes ([facility] on hold) Alcohol intake: never Comment: located near nursing station Patient Tobacco Use Status: Former Tobacco user Tobacco use type: Cigarette Cigarette Packs Per Day: 0.5 Cigarettes Per Day: 10.0 Years Smoked: 25 e-Cigarette/Vaping Use: Former Use Second Hand Smoke Exposure: No Substance Use Type: Marijuana Advance Directives Date on File: 12/29/23 service: No Cognitive needs: No Hearing needs: No Vision needs: Yes Meds Allergies Allergy/AdvReac Type Severity Reaction Status Date / Time clams Allergy Severe Stomach Verified 02/28/25 11:41 Upset clavulanic acid (Augmentin) Allergy Unknown GI, Verified 02/28/25 11:41 Difficulty breathing codeine (CODEINE) Allergy Unknown SENSITIVIT Verified 02/28/25 11:41 Y erythromycin base Allergy Unknown GI, DIFF Verified 02/28/25 11:41 (Erythromycin Base) BREATHING Sulfa (Sulfonamide Allergy Unknown RASH Verified 02/28/25 11:41 Antibiotics) morphine (MORPHINE) AdvReac Severe Difficulty Verified 02/28/25 11:41 Breathing aspirin (Aspirin) AdvReac Mild STOMACH Verified 02/28/25 11:41 UPSET melatonin AdvReac Vomiting Verified 02/28/25 11:41 Active Medications: Current Medications Amiodarone HCl (Amiodarone Hcl 200 Mg Tablet) 200 mg PO DAILY [facility] Last Admin: 03/14/25 08:24 Dose: 200 mg Apixaban (Apixaban 5 Mg Tablet) 5 mg PO BID [facility] Last Admin: 03/14/25 08:24 Dose: 5 mg Atorvastatin Calcium (Atorvastatin Calcium 20 Mg Tablet) 20 mg PO BEDTIME [facility] Last Admin: 03/13/25 20:21 Dose: 20 mg Calcium Carbonate (Calcium Carbonate 750 Mg Tab.Chew) 750 mg PO Q4H PRN PRN Reason: Heartburn Last Admin: 03/11/25 15:54 Dose: 750 mg Carisoprodol (Carisoprodol 350 Mg Tablet) 350 mg PO BEDTIME [facility] Last Admin: 03/13/25 20:20 Dose: 350 mg Carvedilol (Carvedilol 6.25 Mg Tablet) 6.25 mg PO BID [facility]; Protocol Last Admin: 03/14/25 08:24 Dose: 6.25 mg Colchicine (Colchicine 0.6 Mg Tablet) 0.6 mg PO DAILY [facility] Last Admin: 03/14/25 08:24 Dose: 0.6 mg Gabapentin (Gabapentin 100 Mg Capsule) 100 mg PO TID [facility] Last Admin: 03/14/25 14:47 Dose: 100 mg Hydromorphone HCl (Hydromorphone Hcl 1 Mg/Ml Syringe) 2 mg IVPUSH Q3H PRN; Protocol PRN Reason: Pain, Severe (Pain Scale 7-10) Last Admin: 03/14/25 14:45 Dose: 2 mg Potassium Chloride (Potassium Chloride/H20) 10 meq in 100 mls @ 100 mls/hr IV Q1H [facility] Stop: 03/14/25 16:59 Lidocaine (Lidocaine 4 % Patch Adh..Patch) 1 patch TRANSDERMA DAILY [facility]; Protocol Last Admin: 03/14/25 08:26 Dose: Not Given Lorazepam (Lorazepam 0.5 Mg Tablet) 0.5 mg PO ONCE PRN PRN Reason: Anxiety Last Admin: 03/12/25 08:33 Dose: 0.5 mg Magnesium Hydroxide (Milk Of Magnesia 30 Ml Oral.Susp) 30 ml PO DAILY PRN PRN Reason: Constipation Magnesium Oxide (Magnesium Oxide 400 Mg Tablet) 800 mg PO DAILY [facility] Last Admin: 03/14/25 08:24 Dose: 800 mg Melatonin (Melatonin 3 Mg Tablet) 6 mg PO BEDTIME PRN PRN Reason: Insomnia Mirtazapine (Mirtazapine 15 Mg Tablet) 15 mg PO BEDTIME [facility] Last Admin: 03/13/25 20:21 Dose: 15 mg Multivitamins/Vitamin C (Multivitamin Tablet) 1 tab PO DAILY [facility] Last Admin: 03/14/25 08:26 Dose: Not Given Ondansetron HCl (Ondansetron Odt 4 Mg Tab.Rapdis) 4 mg TRANSLINGU Q6H PRN PRN Reason: Nausea and Vomiting Last Admin: 03/14/25 12:12 Dose: 4 mg Pantoprazole Sodium (Pantoprazole Sodium 40 Mg/10 Ml Vial) 40 mg IVPUSH BID@0630,1630 [facility] Last Admin: 03/14/25 16:22 Dose: 40 mg Prednisone (Prednisone 10 Mg Tablet) 30 mg PO DAILY [facility] Last Admin: 03/14/25 08:24 Dose: 30 mg Sodium Chloride (0.9 % Sodium Chloride Flush 3 Ml Syringe) 3 ml IVFLUSH QSHIFT [facility] Last Admin: 03/14/25 08:28 Dose: 3 ml Home Medications ?Medication ?Instructions ?Recorded ?Confirmed ?Last Taken ?Type mirtazapine 15 mg tablet 15 mg PO BEDTIME 11/30/2303/19/24 09:00 History multivitamin with minerals-folic 1 tab PO DAILY 03/01/25 02/18/25 History acid 200 mcg chewable tablet (Multivitamin Gummies) carisoprodol 350 mg tablet 350 mg PO BEDTIME 03/19/24 03/01/25 03/19/24 09:00 History magnesium glycinate 400 mg PO DAILY 03/19/2402/18/25 History ondansetron 4 mg disintegrating 4 mg PO Q8H PRN Nausea And Vomiting 01/15/25 03/01/25 02/18/25 History tablet amiodarone 200 mg tablet 200 mg PO DAILY 02/19/2502/18/25 History apixaban 5 mg tablet (Eliquis) 5 mg PO BID 02/19/2502/18/25 History colchicine 0.6 mg tablet 0.6 mg PO DAILY 02/19/2502/18/25 History esomeprazole magnesium 20 mg 20 mg PO DAILY@0630 02/1903/01/25 02/18/25 History capsule,delayed release (Nexium) gabapentin 100 mg capsule 100 mg PO Q8H 02/19/2503/0102/18/25 History Physical Exam 2 Vital Signs: Vital Signs: Last Vital Signs Temp 97.9 F 03/14/25 15:23 Pulse 72 03/14/25 15:23 Resp 20 03/14/25 15:23 BP 137/71 03/14/25 15:23 Pulse Ox 96 03/14/25 15:23 O2 Del Method Room Air 03/14/25 15:23 O2 Flow Rate 2 03/10/25 17:40 BMI result Body Mass Index 25.6 Const: General: cooperative Orientation/consciousness: patient oriented x3 HEENT: Head: Yes normocephalic Eyes: Conjunctivae: conjunctivae normal Neck: Neck: Yes normal visual inspection Resp: Effort & Inspection: normal respiratory effort GI: Inspection: Yes normal to inspection Palpation (GI): Soft to palpation Neuro: General: patient oriented x3 Psych: Appearance: grossly normal Results Labs 03/13/25 08:46 03/14/25 08:21 Labs: Abnormal lab results 03/13/25 03/14/25 Range/Units 21:09 08:21 Potassium 2.8 L* (3.3-5.1) mmol/L BUN 8 L (9-16) mg/dL Creatinine 0.49 L (0.5-1.4) mg/dL Calcium 7.5 L (8.4-10.2) mg/dL Magnesium 1.3 L* (1.6-2.6) mg/dL AST 41 H (5-31) U/L Alkaline Phosphatase 145 H (39-117) U/L Total Protein 6.1 L (6.5-8.0) g/dL Albumin 2.4 L (3.5-5.0) g/dL Lipase 219 H (8-78) U/L Urine Protein 30 (1+) H (Neg-Trace) mg/dL Urine Blood Small (1+) H (Negative) Ur Leukocyte Esterase Small (1+) H (Negative) BMP 03/14/25 08:21 Sodium 136 Potassium 2.8 L* Chloride 102 Carbon Dioxide 22 BUN 8 L Creatinine 0.49 L Calcium 7.5 L Liver Function 03/14/25 Range/Units 08:21 Total Bilirubin 0.3 (0.0-1.0) mg/dL AST 41 H (5-31) U/L ALT 12 (0-31) U/L Alkaline Phosphatase 145 H (39-117) U/L Albumin 2.4 L (3.5-5.0) g/dL Urine 02/28/25 03/13/25 Range/Units 21:50 21:09 Urine Color Yellow Yellow Urine Appearance Clear Clear Urine pH 6.0 5.5 (5.0-9.0) Ur Specific [place] >= 1.030 H 1.025 (1.005-1.025) Urine Protein 30 (1+) H 30 (1+) H (Neg-Trace) mg/dL Urine Glucose (UA) Negative Negative (Negative) mg/dL All other labs normal. Imaging Abdomen CT scan report/results: report reviewed and image reviewed CT scan - pelvis: report reviewed and image reviewed Additional studies: Date of Service: 03/12/25 CLINICAL HISTORY: ?acute pancreatitis CT abdomen and pelvis without contrast Comparison: None available Findings: Small bilateral pleural effusions, [id number], with adjacent compressive atelectasis. Dependent increased attenuation in the gallbladder which is likely vicarious excretion of previously administered contrast. There is gallbladder wall thickening and pericholecystic fluid. Cirrhotic liver morphology. Mild peripancreatic stranding. No fluid collection. No splenomegaly. The kidneys are excreting previously administered contrast. There is mild multifocal retention of previously administered contrast within the kidneys which can be seen in the setting of renal pathology. No hydronephrosis. Right nephrolithiasis is punctate. Punctate left renal parenchymal calcifications. Focal fat at the base of a lower pole left renal calyx. There is contrast in the bladder which also contains air. There is mild bladder wall thickening. Fibroid uterus. The other solid organs are unremarkable. No bowel dilation. Question mild wall thickening of the small bowel. Status post colectomy. Right lower quadrant ostomy. There is a parastomal hernia containing nonobstructed small bowel. No aneurysm. Mild calcified atherosclerotic disease. No lymphadenopathy. Trace ascites. Presacral edema. Mild diffuse mesenteric edema. There is infiltration of the subcutaneous fat which may indicate anasarca. Left lower quadrant anterior abdominal wall fluid collection measuring 3.0 cm is favored to be a seroma, however a small abscess could be considered No acute osseous abnormality. Impression: Mild peripancreatic stranding may indicate acute pancreatitis. No fluid collection. Evidence of volume overload including small bilateral pleural effusions, trace ascites and anasarca. Gallbladder wall thickening and pericholecystic fluid is likely secondary to systemic pathology rather than acute cholecystitis. Dependent increased attenuation in the gallbladder is likely vicarious excretion of previously administered contrast. Cholelithiasis and sludge may also be considered. A right upper quadrant ultrasound may be helpful if there is clinical concern for acute cholecystitis. Mild multifocal retention of previously administered contrast within the kidneys can be seen in the setting of renal pathology. Air within the bladder could be secondary to recent instrumentation. Emphysematous cystitis may also be considered. Correlate with urinalysis. Question mild wall thickening of the small bowel which could be secondary to edema. Enteritis of an infectious etiology is considered less likely. Assessment and Plan (1) Abnormal CT scan, kidney: Status: Acute Air seen in bladder, most likely related to prior instrumentation Plan H/O colovesical fistula, dxn'd [id number], s/p ileostomy. No LUTS at this time. CTAP findings in bladder most likely related to prior instrumentation. No intervention indicated at this time Procedures Date of Service Date of Service: 03/14/25
[2025-03-14 21:54] LABS: Magnesium 2.2 mg/dL (1.6-2.6); Potassium 3.8 mmol/L (3.3-5.1)
[2025-03-15] VITALS (14 sets, daily range): BP systolic 115–163; BP diastolic 61–78; PULSE 66–80; RESP 16–20; TEMP 36.2–36.9; O2SAT 94–97
[2025-03-15 09:23] LABS: Anion Gap 10 (12-20); Blood Urea Nitrogen 9 mg/dL (9-16); Calcium 7.7 mg/dL (8.4-10.2); Carbon Dioxide 26 mmol/L (22-29); Chloride 100 mmol/L (96-108); Creatinine Clr Calc Pharmacy 98.9; Estimated Glomerular Filt Rate > 60; Potassium 3.2 mmol/L (3.3-5.1); Sodium 133 mmol/L (135-145)
[2025-03-15] MEDS: 0.9 % Sodium Chloride Flush 3 ML SYRINGE IVFLUSH ×3 (09:24→21:44)
[2025-03-15] MEDS: Potassium Chloride ER 20 MEQ TAB.ER.PRT PO (15:06)
--- NOTE | 2025-03-15 16:28 | P.PNIM_ITS ---
Subjective Subjective Date of Service: 03/15/25 Interval History: pancreatitis Review of Systems abd pain improvin no vomting Review of Systems: Yes all other systems are reviewed and are negative Physical Exam 2 Vital Signs: Vital Signs: Last Vital Signs Temp 97.2 F 03/15/25 15:18 Pulse 70 03/15/25 15:18 Resp 16 03/15/25 15:18 BP 136/61 03/15/25 15:18 Pulse Ox 95 03/15/25 15:18 O2 Del Method Room Air 03/15/25 15:18 O2 Flow Rate 2 03/10/25 17:40 BMI result Body Mass Index 25.6 Appearance: Alert.? Oriented X3.? cvs: rrr, [id number] . res: clear to auscultation ,no rhonchii or wheezing abd: no rebound or guarding ,bs present,soft,abd pain epigastric (says feels similar to her pancreatitis) ext pulses present , no cyanosis . neuro: nonfocal. Objective Data Active Medications Amiodarone HCl (Amiodarone Hcl 200 Mg Tablet) 200 mg PO DAILY [facility] Last Admin: 03/15/25 09:17 Dose: 200 mg Documented By: HUNTER Apixaban (Apixaban 5 Mg Tablet) 5 mg PO BID [facility] Last Admin: 03/15/25 09:17 Dose: 5 mg Documented By: HUNTER Atorvastatin Calcium (Atorvastatin Calcium 20 Mg Tablet) 20 mg PO BEDTIME [facility] Last Admin: 03/14/25 20:41 Dose: 20 mg Documented By: SHARITA Calcium Carbonate (Calcium Carbonate 750 Mg Tab.Chew) 750 mg PO Q4H PRN PRN Reason: Heartburn Last Admin: 03/11/25 15:54 Dose: 750 mg Documented By: DAMON Carisoprodol (Carisoprodol 350 Mg Tablet) 350 mg PO BEDTIME [facility] Last Admin: 03/14/25 20:41 Dose: 350 mg Documented By: SHARITA Carvedilol (Carvedilol 6.25 Mg Tablet) 6.25 mg PO BID [facility]; Protocol Last Admin: 03/15/25 09:19 Dose: 6.25 mg Documented By: HUNTER Colchicine (Colchicine 0.6 Mg Tablet) 0.6 mg PO DAILY [facility] Last Admin: 03/15/25 09:18 Dose: 0.6 mg Documented By: HUNTER Gabapentin (Gabapentin 100 Mg Capsule) 100 mg PO TID [facility] Last Admin: 03/15/25 15:06 Dose: 100 mg Documented By: HUNTER Hydromorphone HCl (Hydromorphone Hcl 1 Mg/Ml Syringe) 2 mg IVPUSH Q3H PRN; Protocol PRN Reason: Pain, Severe (Pain Scale 7-10) Last Admin: 03/15/25 13:23 Dose: 2 mg Documented By: HUNTER Lidocaine (Lidocaine 4 % Patch Adh..Patch) 1 patch TRANSDERMA DAILY [facility]; Protocol Last Admin: 03/15/25 09:28 Dose: Not Given Documented By: HUNTER Non-Admin Reason: Patient Refused Lorazepam (Lorazepam 0.5 Mg Tablet) 0.5 mg PO ONCE PRN PRN Reason: Anxiety Last Admin: 03/12/25 08:33 Dose: 0.5 mg Documented By: SANDIP Magnesium Hydroxide (Milk Of Magnesia 30 Ml Oral.Susp) 30 ml PO DAILY PRN PRN Reason: Constipation Magnesium Oxide (Magnesium Oxide 400 Mg Tablet) 800 mg PO DAILY [facility] Last Admin: 03/15/25 09:19 Dose: 800 mg Documented By: HUNTER Melatonin (Melatonin 3 Mg Tablet) 6 mg PO BEDTIME PRN PRN Reason: Insomnia Mirtazapine (Mirtazapine 15 Mg Tablet) 15 mg PO BEDTIME [facility] Last Admin: 03/14/25 20:42 Dose: 15 mg Documented By: SHARITA Multivitamins/Vitamin C (Multivitamin Tablet) 1 tab PO DAILY [facility] Last Admin: 03/15/25 09:20 Dose: 1 tab Documented By: HUNTER Ondansetron HCl (Ondansetron Odt 4 Mg Tab.Rapdis) 4 mg TRANSLINGU Q6H PRN PRN Reason: Nausea and Vomiting Last Admin: 03/14/25 12:12 Dose: 4 mg Documented By: SANDIP Pantoprazole Sodium (Pantoprazole Sodium 40 Mg/10 Ml Vial) 40 mg IVPUSH BID@0630,1630 [facility] Last Admin: 03/15/25 06:27 Dose: 40 mg Documented By: EUSEBIO Prednisone (Prednisone 10 Mg Tablet) 30 mg PO DAILY [facility] Last Admin: 03/15/25 09:17 Dose: 30 mg Documented By: HUNTER Sodium Chloride (0.9 % Sodium Chloride Flush 3 Ml Syringe) 3 ml IVFLUSH QSHIFT [facility] Last Admin: 03/15/25 09:24 Dose: 3 ml Documented By: HUNTER Labs 03/13/25 08:46 03/15/25 08:58 Labs: Laboratory Results - last 24 hr 03/14/25 03/15/25 21:31 08:58 Hold Purple Top SEE NOTE Anion Gap 10 L Estim Creat Clear Calc 98.9 Estimated GFR > 60 Random Glucose 97 Calcium 7.7 L Magnesium 2.2 Assessment and Plan (1) Rectal bleeding: Status: Acute (2) Uterine myoma: Status: Acute (3) Acute hypokalemia: Status: Acute (4) Anemia: Status: Acute Plan 65yo F with HTN, HLD, CAD, CHF, pAF on Eliquis, hx pancreatitis, recent subtotal colectomy/hernia repair at [facility] on 01/07/2025 with resultant ileostomy bag followed by admission to the ICU at [facility] from 01/20-01/25 for pulmonary edema/pericardial effusion/anemia/new onset a flutter/intra-abdominal abscess/[place]ia bacteremia after which patient was transferred to [facility] where she has abscesses drained; finished a course of antibiotics and discharged home on 02/17/25. Presented back to the ER on 02/18/25 overnight with a chief complaint of abdominal pain with question of cholecystitis ruled out, discharged home 02/27. 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 acute pancreatitis: abd pain /nausea /vomiting improving Still hesitant to take p.o. intake ct abd: possible acute pancreatitis us abd:No cholelithiasis or gross choledocholithiasis.Concerning liver disease/hepatocellular disease/cirrhosis. Trace amount of free fluid, lesser sac and ascite plan: mrcp-No evidence of cholelithiasis or choledocholithiasis. Diffuse edema of the mesenteric fat, which may be secondary to pancreatitis, although this finding is not localized to the peripancreatic region.Nodular liver contour, suggestive of cirrhosis. dc ivf ,trial of po diet, pain management-dialudid adjusted surgery eval-no acute surgerical intervention. mild leucocytosis :? reactive to pancreatitis /steriods. mild atelacatsis lungs on ct abd ? cystitis on ct abd ,but no urinary c/o. plan: check ua -minimum pyuria, no bacteriuria, patient has no urinary symptoms. seen by urology-reviewed CT abdomen findings, less likely urinary infection concern. continue pancreatitis rx, taper striods Acute HypoK/Mag Repleted. follow renal/divalent Pericardial effusion continue colchicine Hx CAD stable and well compensated at this time Hx Afib start Eliquis . Full code Boots Patient requires ongoing hospitalization abd pain -workup and management? pancretaitis-iv hydratiion ,bowel rest ,pain management. Quality Stroke Does the patient have a stroke diagnosis?: No Reason for No Anti-thrombotic by Day Two: Contraindicated VTE Prior VTE?: No VTE Risk Level:: Surgical - high VTE Device Contraindication: N/A - Device Ordered VTE Drug Contraindication: Treatment Not Indicated
[2025-03-16] VITALS (8 sets, daily range): BP systolic 104–141; BP diastolic 61–72; PULSE 60–104; RESP 16–20; TEMP 36.2–37.1; O2SAT 95–97
--- NOTE | 2025-03-16 02:17 | PC.NURSE ---
03/15/25 2100 Pt declining US guided peripheral IV and removal of TLC tonight. It was reported during RN shift report, Dr. Greenfield would like the TLC removed and a peripheral IV inserted. RN educated the patient regarding the risk of line infection and the availability of having and experience CREPING MACHINE OPERATOR available to place a peripheral US guided IV. When discussing with the patient the patient verbalized she was angry as she reported she had spoke with the doctor and she did not want a peripheral IV as she had several incidents where the IV's infiltrated and she rather not have any IV at all if having to remove the central line . RN offered ultrasound guided IV but patient continued to decline insisting the central line stays in for tonight until she can talk to the doctor in the am. RN will report off to daytime RN the conversation and RN and daytime medical doctor can follow up with patient for plan of care and orders.
[2025-03-16 07:30] LABS: Anion Gap 10 (12-20); Blood Urea Nitrogen 10 mg/dL (9-16); Calcium 7.5 mg/dL (8.4-10.2); Carbon Dioxide 27 mmol/L (22-29); Chloride 102 mmol/L (96-108); Creatinine Clr Calc Pharmacy 103.0; Estimated Glomerular Filt Rate > 60; Potassium 3.3 mmol/L (3.3-5.1); Sodium 136 mmol/L (135-145)
[2025-03-16] MEDS: Potassium Chloride ER 20 MEQ TAB.ER.PRT PO (08:50)
[2025-03-16] MEDS: 0.9 % Sodium Chloride Flush 3 ML SYRINGE IVFLUSH ×3 (10:47→20:48)
--- NOTE | 2025-03-16 13:40 | PC.NURSE ---
pt agreed to peripheral IV access today , 2 RN's attempted peripheral IV access with no success . US guided IV insertion failed , Hollow Tile Partition Erector was notified and will attempt US guided IV
--- NOTE | 2025-03-16 15:09 | P.PNIM_ITS ---
Subjective Subjective Date of Service: 03/16/25 Interval History: pancreatitis Review of Systems abd pain improvin no vomting says minimal vaginal spottin Review of Systems: Yes all other systems are reviewed and are negative Physical Exam 2 Vital Signs: Vital Signs: Last Vital Signs Temp 98.3 F 03/16/25 11:19 Pulse 66 03/16/25 11:19 Resp 16 03/16/25 11:19 BP 127/62 03/16/25 11:19 Pulse Ox 96 03/16/25 11:19 O2 Del Method Room Air 03/16/25 11:19 O2 Flow Rate 2 03/10/25 17:40 BMI result Body Mass Index 25.6 Appearance: Alert.? Oriented X3.? cvs: rrr, [id number] . res: clear to auscultation ,no rhonchii or wheezing abd: no rebound or guarding ,bs present,soft,abd pain epigastric (says feels similar to her pancreatitis) ext pulses present , no cyanosis . neuro: nonfocal. Objective Data Active Medications Amiodarone HCl (Amiodarone Hcl 200 Mg Tablet) 200 mg PO DAILY [facility] Last Admin: 03/16/25 08:50 Dose: 200 mg Documented By: HUNTER Apixaban (Apixaban 5 Mg Tablet) 5 mg PO BID [facility] Last Admin: 03/16/25 08:51 Dose: 5 mg Documented By: HUNTER Atorvastatin Calcium (Atorvastatin Calcium 20 Mg Tablet) 20 mg PO BEDTIME [facility] Last Admin: 03/15/25 21:43 Dose: 20 mg Documented By: EUSEBIO Calcium Carbonate (Calcium Carbonate 750 Mg Tab.Chew) 750 mg PO Q4H PRN PRN Reason: Heartburn Last Admin: 03/11/25 15:54 Dose: 750 mg Documented By: DAMON Carvedilol (Carvedilol 6.25 Mg Tablet) 6.25 mg PO BID [facility]; Protocol Last Admin: 03/16/25 08:53 Dose: 6.25 mg Documented By: HUNTER Colchicine (Colchicine 0.6 Mg Tablet) 0.6 mg PO DAILY [facility] Last Admin: 03/16/25 08:52 Dose: 0.6 mg Documented By: HUNTER Gabapentin (Gabapentin 100 Mg Capsule) 100 mg PO TID [facility] Last Admin: 03/16/25 08:50 Dose: 100 mg Documented By: HUNTER Hydromorphone HCl (Hydromorphone Hcl 1 Mg/Ml Syringe) 1.5 mg IVPUSH Q3H PRN; Protocol PRN Reason: Pain, Severe (Pain Scale 7-10) Last Admin: 03/16/25 13:36 Dose: 1.5 mg Documented By: HUNTER Lidocaine (Lidocaine 4 % Patch Adh..Patch) 1 patch TRANSDERMA DAILY [facility]; Protocol Last Admin: 03/16/25 08:59 Dose: Not Given Documented By: HUNTER Non-Admin Reason: Patient Refused Lorazepam (Lorazepam 0.5 Mg Tablet) 0.5 mg PO ONCE PRN PRN Reason: Anxiety Last Admin: 03/12/25 08:33 Dose: 0.5 mg Documented By: SANDIP Magnesium Hydroxide (Milk Of Magnesia 30 Ml Oral.Susp) 30 ml PO DAILY PRN PRN Reason: Constipation Magnesium Oxide (Magnesium Oxide 400 Mg Tablet) 800 mg PO DAILY [facility] Last Admin: 03/16/25 08:48 Dose: 800 mg Documented By: HUNTER Melatonin (Melatonin 3 Mg Tablet) 6 mg PO BEDTIME PRN PRN Reason: Insomnia Mirtazapine (Mirtazapine 15 Mg Tablet) 15 mg PO BEDTIME [facility] Last Admin: 03/15/25 21:43 Dose: 15 mg Documented By: EUSEBIO Multivitamins/Vitamin C (Multivitamin Tablet) 1 tab PO DAILY [facility] Last Admin: 03/16/25 08:51 Dose: 1 tab Documented By: HUNTER Ondansetron HCl (Ondansetron Odt 4 Mg Tab.Rapdis) 4 mg TRANSLINGU Q6H PRN PRN Reason: Nausea and Vomiting Last Admin: 03/14/25 12:12 Dose: 4 mg Documented By: SANDIP Prednisone (Prednisone 20 Mg Tablet) 20 mg PO DAILY [facility] Last Admin: 03/16/25 08:51 Dose: 20 mg Documented By: HUNTER Sodium Chloride (0.9 % Sodium Chloride Flush 3 Ml Syringe) 3 ml IVFLUSH QSHIFT [facility] Last Admin: 03/16/25 10:47 Dose: 3 ml Documented By: HUNTER Labs 03/13/25 08:46 03/16/25 06:51 Labs: Laboratory Results - last 24 hr 03/16/25 06:51 Hold Purple Top SEE NOTE Anion Gap 10 L Estim Creat Clear Calc 103.0 Estimated GFR > 60 Random Glucose 93 Calcium 7.5 L Assessment and Plan (1) Rectal bleeding: Status: Acute (2) Uterine myoma: Status: Acute (3) Acute hypokalemia: Status: Acute (4) Anemia: Status: Acute Plan 65yo F with HTN, HLD, CAD, CHF, pAF on Eliquis, hx pancreatitis, recent subtotal colectomy/hernia repair at [facility] on 01/07/2025 with resultant ileostomy bag followed by admission to the ICU at [facility] from 01/20-01/25 for pulmonary edema/pericardial effusion/anemia/new onset a flutter/intra-abdominal abscess/Finegoldia bacteremia after which patient was transferred to [facility] where she has abscesses drained; finished a course of antibiotics and discharged home on 02/17/25. Presented back to the ER on 02/18/25 overnight with a chief complaint of abdominal pain with question of cholecystitis ruled out, discharged home 02/27. 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 acute pancreatitis: abd pain /nausea /vomiting improving Still hesitant to take p.o. intake ct abd: possible acute pancreatitis us abd:No cholelithiasis or gross choledocholithiasis.Concerning liver disease/hepatocellular disease/cirrhosis. Trace amount of free fluid, lesser sac and ascite plan: mrcp-No evidence of cholelithiasis or choledocholithiasis. Diffuse edema of the mesenteric fat, which may be secondary to pancreatitis, although this finding is not localized to the peripancreatic region.Nodular liver contour, suggestive of cirrhosis. Tolerating p.o. diet, switched to p.o. Dilaudid /tylenol surgery eval-no acute surgerical intervention. mild leucocytosis :? reactive to pancreatitis /steriods. mild atelacatsis lungs on ct abd ? cystitis on ct abd ,but no urinary c/o. plan: check ua -minimum pyuria, no bacteriuria, patient has no urinary symptoms. seen by urology-reviewed CT abdomen findings, less likely urinary infection concern. continue pancreatitis rx, taper striods Acute HypoK/Mag Repleted. follow renal/divalent Pericardial effusion continue colchicine Hx CAD stable and well compensated at this time Hx Afib start Eliquis . Full code Boots Patient requires ongoing hospitalization abd pain -workup and management? pancretaitis- pain management. Quality Stroke Does the patient have a stroke diagnosis?: No Reason for No Anti-thrombotic by Day Two: Contraindicated VTE Prior VTE?: No VTE Risk Level:: Surgical - high VTE Device Contraindication: N/A - Device Ordered VTE Drug Contraindication: Treatment Not Indicated
--- NOTE | 2025-03-16 15:40 | PC.NURSE ---
Peripheral IV inserted by the nursing supervisor fruit grading, DR Greenfield placed on order to remove TLC , MECCA Deng from ICU is removing TLC now .
--- NOTE | 2025-03-16 15:42 | PC.NURSE ---
pt reported that she has been having vaginal bloody spotting for about 2 days , this RN assessed pt's ricky pad and found bloody spotting on superficial surface of the ricky pad. DR Greenfield is aware about the above
[2025-03-17 04:00] VITALS: BP 125/66; PULSE 69; RESP 16; TEMP 36.2; O2SAT 97
[2025-03-17 07:01] VITALS: BP 137/73; PULSE 68; RESP 20; TEMP 36.2; O2SAT 98
[2025-03-17 08:41] LABS: Alanine Aminotransferase 23 U/L (0-31); Albumin Level 2.4 g/dL (3.5-5.0); Alkaline Phosphatase 159 U/L (39-117); Aspartate Amino Transferase 59 U/L (5-31); Lipase 180 U/L (8-78); Total Protein 5.7 g/dL (6.5-8.0)
[2025-03-17] MEDS: 0.9 % Sodium Chloride Flush 3 ML SYRINGE IVFLUSH ×3 (09:07→21:03)
[2025-03-17 09:26] LABS: Hematocrit 32.4 % (37.0-47.0); Hemoglobin 10.7 g/dl (12.0-16.0); Mean Corpuscular HGB Conc 33.0 g/dl (31.0-35.0); Mean Corpuscular Hemoglobin 29.1 pg (27.0-33.0); Mean Corpuscular Volume 88.0 fL (80.0-98.0); NRBC Abs Auto 0.000 X10*3/uL (0.0-0.012); NRBC Pct Auto 0.0 /100WBC (0.0-0.2); Platelet Count 269 X10*3/uL (160-400); Red Blood Count 3.68 X10*6/uL (4.20-5.50); White Blood Count 11.6 X10*3/uL (4.8-10.8)
--- NOTE | 2025-03-17 10:45 | MHC.CM.PN ---
PER MD ROUNDS, PT NOT MEDICALLY CLEARED DCP: STR AT [facility] PENDING INSURANCE AUTH BLS TRANSPORT
[2025-03-17 10:57] VITALS: BP 140/72; PULSE 67; RESP 20; TEMP 36.6; O2SAT 98
[2025-03-17 15:22] VITALS: BP 127/62; PULSE 67; RESP 18; TEMP 36.3; O2SAT 93
--- NOTE | 2025-03-17 15:33 | P.PNIM_ITS ---
Subjective Subjective Date of Service: 03/17/25 Interval History: pancreatitis Review of Systems abd pain seems improving has some vaginal spotting Review of Systems: Yes all other systems are reviewed and are negative Physical Exam 2 Vital Signs: Vital Signs: Last Vital Signs Temp 97.3 F 03/17/25 15:22 Pulse 67 03/17/25 15:22 Resp 18 03/17/25 15:22 BP 127/62 03/17/25 15:22 Pulse Ox 93 03/17/25 15:22 O2 Del Method Room Air 03/17/25 15:22 O2 Flow Rate 2 03/10/25 17:40 BMI result Body Mass Index 25.6 Appearance: Alert.? Oriented X3.? cvs: rrr, [id number] . res: clear to auscultation ,no rhonchii or wheezing abd: no rebound or guarding ,bs present,soft,abd pain epigastric . ext pulses present , no cyanosis . neuro: nonfocal. Objective Data Active Medications Acetaminophen (Acetaminophen 325 Mg Tablet) 975 mg PO Q6H PRN PRN Reason: Pain, Mild (Pain Scale 1-3) Amiodarone HCl (Amiodarone Hcl 200 Mg Tablet) 200 mg PO DAILY [facility] Last Admin: 03/17/25 09:09 Dose: 200 mg Documented By: ALLIE Apixaban (Apixaban 5 Mg Tablet) 5 mg PO BID [facility] Last Admin: 03/17/25 09:10 Dose: 5 mg Documented By: ALLIE Atorvastatin Calcium (Atorvastatin Calcium 20 Mg Tablet) 20 mg PO BEDTIME [facility] Last Admin: 03/16/25 20:17 Dose: 20 mg Documented By: KIKA-DESSK Calcium Carbonate (Calcium Carbonate 750 Mg Tab.Chew) 750 mg PO Q4H PRN PRN Reason: Heartburn Last Admin: 03/16/25 20:46 Dose: 750 mg Documented By: N-DESSK Calcium Carbonate (Calcium Carbonate 750 Mg Tab.Chew) 750 mg PO Q6H PRN PRN Reason: Heartburn Carvedilol (Carvedilol 6.25 Mg Tablet) 6.25 mg PO BID [facility]; Protocol Last Admin: 03/17/25 09:09 Dose: 6.25 mg Documented By: ALLIE Colchicine (Colchicine 0.6 Mg Tablet) 0.6 mg PO DAILY [facility] Last Admin: 03/17/25 09:08 Dose: 0.6 mg Documented By: ALLIE Gabapentin (Gabapentin 100 Mg Capsule) 100 mg PO TID [facility] Last Admin: 03/17/25 14:47 Dose: 100 mg Documented By: ALLIE Hydromorphone HCl (Hydromorphone Hcl 2 Mg Tablet) 2 mg PO Q3H PRN PRN Reason: Pain, Severe (Pain Scale 7-10) Last Admin: 03/17/25 12:29 Dose: 2 mg Documented By: ALLIE Lidocaine (Lidocaine 4 % Patch Adh..Patch) 1 patch TRANSDERMA DAILY [facility]; Protocol Last Admin: 03/17/25 09:10 Dose: Not Given Documented By: ALLIE Non-Admin Reason: Patient Refused Magnesium Hydroxide (Milk Of Magnesia 30 Ml Oral.Susp) 30 ml PO DAILY PRN PRN Reason: Constipation Magnesium Oxide (Magnesium Oxide 400 Mg Tablet) 800 mg PO DAILY [facility] Last Admin: 03/17/25 09:08 Dose: 800 mg Documented By: ALLIE Melatonin (Melatonin 3 Mg Tablet) 6 mg PO BEDTIME PRN PRN Reason: Insomnia Mirtazapine (Mirtazapine 15 Mg Tablet) 15 mg PO BEDTIME [facility] Last Admin: 03/16/25 20:18 Dose: 15 mg Documented By: KIKA-GIUSEPPE Multivitamins/Vitamin C (Multivitamin Tablet) 1 tab PO DAILY [facility] Last Admin: 03/17/25 09:08 Dose: 1 tab Documented By: ALLIE Omeprazole (Omeprazole 20 Mg Capsule.Dr) 20 mg PO BID@0630,1630 [facility] Last Admin: 03/17/25 10:18 Dose: 20 mg Documented By: ALLIE Ondansetron HCl (Ondansetron Odt 4 Mg Tab.Rapdis) 4 mg TRANSLINGU Q6H PRN PRN Reason: Nausea and Vomiting Last Admin: 03/14/25 12:12 Dose: 4 mg Documented By: SANDIP Prednisone (Prednisone 20 Mg Tablet) 20 mg PO DAILY [facility] Last Admin: 03/17/25 09:08 Dose: 20 mg Documented By: ALLIE Sodium Chloride (0.9 % Sodium Chloride Flush 3 Ml Syringe) 3 ml IVFLUSH QSHIFT [facility] Last Admin: 03/17/25 09:07 Dose: 3 ml Documented By: ALLIE Labs 03/17/25 09:15 03/16/25 06:51 Labs: Laboratory Results - last 24 hr 03/16/25 03/17/25 06:51 09:15 MCV 88.0 MCH 29.1 MCHC 33.0 RDW 14.6 Plt Count 269 MPV 9.6 Absolute Nucleated RBC 0.000 Nucleated RBC % (auto) 0.0 Total Bilirubin 0.2 Direct Bilirubin < 0.2 AST 59 H ALT 23 Alkaline Phosphatase 159 H Total Protein 5.7 L Albumin 2.4 L Lipase 180 H Assessment and Plan (1) Rectal bleeding: Status: Acute (2) Uterine myoma: Status: Acute (3) Acute hypokalemia: Status: Acute (4) Anemia: Status: Acute Plan 65yo F with HTN, HLD, CAD, CHF, pAF on Eliquis, hx pancreatitis, recent subtotal colectomy/hernia repair at [facility] on 01/07/2025 with resultant ileostomy bag followed by admission to the ICU at [facility] from 01/20-01/25 for pulmonary edema/pericardial effusion/anemia/new onset a flutter/intra-abdominal abscess/Finegoldia bacteremia after which patient was transferred to [facility] where she has abscesses drained; finished a course of antibiotics and discharged home on 02/17/25. Presented back to the ER on 02/18/25 overnight with a chief complaint of abdominal pain with question of cholecystitis ruled out, discharged home 02/27. 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 acute pancreatitis: abd pain /nausea /vomiting improving Still hesitant to take p.o. intake ct abd: possible acute pancreatitis us abd:No cholelithiasis or gross choledocholithiasis.Concerning liver disease/hepatocellular disease/cirrhosis. Trace amount of free fluid, lesser sac and ascite plan: mrcp-No evidence of cholelithiasis or choledocholithiasis. Diffuse edema of the mesenteric fat, which may be secondary to pancreatitis, although this finding is not localized to the peripancreatic region.Nodular liver contour, suggestive of cirrhosis. Tolerating p.o. diet, trial of p.o. Dilaudid /tylenol surgery eval-no acute surgerical intervention. mild leucocytosis :? reactive to pancreatitis /steriods. mild atelacatsis lungs on ct abd ? cystitis on ct abd ,but no urinary c/o. plan: leucocytosis improving check ua -minimum pyuria, no bacteriuria, patient has no urinary symptoms. seen by urology-reviewed CT abdomen findings, less likely urinary infection concern. continue pancreatitis rx, taper steriods. Acute HypoK/Mag Repleted. follow renal/divalent Pericardial effusion continue colchicine Hx CAD stable and well compensated at this time Hx Afib start Eliquis . Full code Boots Patient requires ongoing hospitalization abd pain -workup and management? 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 Quality Stroke Does the patient have a stroke diagnosis?: No Reason for No Anti-thrombotic by Day Two: Contraindicated VTE Prior VTE?: No VTE Risk Level:: Surgical - high VTE Device Contraindication: N/A - Device Ordered VTE Drug Contraindication: Treatment Not Indicated
[2025-03-17] MEDS: Lipase/Prot/Amylase 12/38/60K CAPSULE.DR 3 CAP PO (18:02)
[2025-03-17 19:18] VITALS: BP 133/77; PULSE 75; RESP 16; TEMP 36.5; O2SAT 96
[2025-03-17 23:10] VITALS: BP 111/67; PULSE 62; RESP 16; TEMP 36.2; O2SAT 96
--- NOTE | 2025-03-17 23:43 | P.PNGI_ITS ---
Subjective Subjective Date of Service: 03/17/25 Interval History: pain much improved managing po diet less need for analgesia increased o/p from stoma, whihc is baseline mild vaginal spotting Critical Care Time (minutes): 0 Physical Exam 2 Vital Signs: Vital Signs: Last Vital Signs Temp 97.2 F 03/17/25 23:10 Pulse 62 03/17/25 23:10 Resp 16 03/17/25 23:10 BP 111/67 03/17/25 23:10 Pulse Ox 96 03/17/25 23:10 O2 Del Method Room Air 03/17/25 23:10 O2 Flow Rate 2 03/10/25 17:40 BMI result Body Mass Index 25.6 EXAM: GENERAL: The patient is well developed and nontoxic. VITAL SIGNS:see workflow HEENT: Nonicteric sclerae, PERRLA, EOMI. Oropharynx clear. Moist mucous membranes. Conjunctivae appear well perfused. No thyroid mass. CHEST: Chest wall is nontender. HEART: Regular rate and rhythm without murmurs. LUNGS: Clear to auscultation bilaterally. ABDOMEN: Soft, positive bowel sounds, nontender, no organomegaly.no flank tenderness--stoma noted SKIN: No rash, no excessive bruising, petechiae, or purpura. NEUROLOGIC: Cranial nerves II-XII intact without motor/sensory deficit. Psych: normal affect Objective Data Labs 03/17/25 09:15 03/16/25 06:51 Labs: Laboratory Results - last 24 hr 03/16/25 03/17/25 06:51 09:15 WBC 11.6 H RBC 3.68 L Hgb 10.7 L Hct 32.4 L MCV 88.0 MCH 29.1 MCHC 33.0 RDW 14.6 Plt Count 269 MPV 9.6 Absolute Nucleated RBC 0.000 Nucleated RBC % (auto) 0.0 Total Bilirubin 0.2 Direct Bilirubin < 0.2 AST 59 H ALT 23 Alkaline Phosphatase 159 H Total Protein 5.7 L Albumin 2.4 L Lipase 180 H Microbiology Microbiology Results: Microbiology 02/28/25 22:40 Blood - Central Line Blood Culture - Final No growth after 5 days. 02/28/25 22:40 Blood - Central Line Blood Culture - Final No growth after 5 days. 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 Quality Stroke Does the patient have a stroke diagnosis?: No Reason for No Anti-thrombotic by Day Two: Contraindicated VTE Prior VTE?: No VTE Risk Level:: Surgical - high VTE Device Contraindication: N/A - Device Ordered VTE Drug Contraindication: Treatment Not Indicated
[2025-03-18] VITALS (7 sets, daily range): BP systolic 110–145; BP diastolic 60–81; PULSE 62–73; RESP 16–20; TEMP 36.1–36.6; O2SAT 95–98
[2025-03-18] MEDS: Lidocaine 4 % Patch ADH..PATCH 1 PATCH TRANSDERMA (08:04)
[2025-03-18] MEDS: Lipase/Prot/Amylase 12/38/60K CAPSULE.DR 3 CAP PO ×3 (08:04→17:09)
[2025-03-18] MEDS: 0.9 % Sodium Chloride Flush 3 ML SYRINGE IVFLUSH ×2 (08:16→20:53)
--- NOTE | 2025-03-18 12:03 | MHC.CM.PN ---
CM met with Patient to discuss dc planning. Per MD in ROUNDS, anticipate dc to [facility] in 1-2 days. [facility] has asked [facility] to initiate auth again. CM will follow.
--- NOTE | 2025-03-18 13:57 | PM.GYNCN ---
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 The patient gives no history of vaginal discharge or foul odor , or fecal material No recent co testing cc:: CC: Sal Greenfield MD OB FOR[facility]LY [facility], 1928–1983 Past Medical History Medical History Pancreatitis Insomnia Bilateral knee pain Polyarthralgia MARKIE (acute kidney injury) Back pain Arthritis History of transfusion of packed red blood cells Anemia Cardiomyopathy MARKIE (acute kidney injury) MARKIE (acute kidney injury) Anxiety Small bowel obstruction Myocardial infarction NSTEMI (non-ST elevated myocardial infarction) NSVT (nonsustained ventricular tachycardia) PVC (premature ventricular contraction) Hypertension Perforated diverticulum Irritable bowel syndrome with constipation Barretts esophagus GERD (gastroesophageal reflux disease) Functional capacity: wheelchair bound Family History Family History Father Colon cancer Congestive heart failure Paternal Aunt Colon cancer Mother Congestive heart failure Afib Surgical History Surgical History S/P colon resection PIC line (peripherally inserted central catheter) removal History of low anterior resection of rectum Status post cardiac catheterization Ileostomy in place H/O dilation and curettage History of exploratory laparotomy (05/11/23) S/P colostomy Colovesical fistula History of esophagogastroduodenoscopy (EGD) Hx of colonoscopy Social History Social History Household Members: None Housing: House Are you a primary clinical care coordinator to a significant other at home: No Do you presently have visiting nurse or other home services: Yes ([facility] on hold) Alcohol intake: never Comment: located near nursing station Patient Tobacco Use Status: Former Tobacco user Tobacco use type: Cigarette Cigarette Packs Per Day: 0.5 Cigarettes Per Day: 10.0 Years Smoked: 25 e-Cigarette/Vaping Use: Former Use Second Hand Smoke Exposure: No Substance Use Type: Marijuana Advance Directives Date on File: 12/29/23 service: No Cognitive needs: No Hearing needs: No Vision needs: Yes Meds Allergies Allergy/AdvReac Type Severity Reaction Status Date / Time clams Allergy Severe Stomach Verified 02/28/25 11:41 Upset clavulanic acid (Augmentin) Allergy Unknown GI, Verified 02/28/25 11:41 Difficulty breathing codeine (CODEINE) Allergy Unknown SENSITIVIT Verified 02/28/25 11:41 Y erythromycin base Allergy Unknown GI, DIFF Verified 02/28/25 11:41 (Erythromycin Base) BREATHING Sulfa (Sulfonamide Allergy Unknown RASH Verified 02/28/25 11:41 Antibiotics) morphine (MORPHINE) AdvReac Severe Difficulty Verified 02/28/25 11:41 Breathing aspirin (Aspirin) AdvReac Mild STOMACH Verified 02/28/25 11:41 UPSET melatonin AdvReac Vomiting Verified 02/28/25 11:41 Active Medications: Current Medications Acetaminophen (Acetaminophen 325 Mg Tablet) 975 mg PO Q6H PRN PRN Reason: Pain, Mild (Pain Scale 1-3) Amiodarone HCl (Amiodarone Hcl 200 Mg Tablet) 200 mg PO DAILY [facility] Last Admin: 03/18/25 08:04 Dose: 200 mg Lipase/Protease/Amylase (Lipase/Prot/Amylase 12/38/60k Capsule.) 3 cap PO TIDWM [facility] Last Admin: 03/18/25 11:37 Dose: 3 cap Apixaban (Apixaban 5 Mg Tablet) 5 mg PO BID [facility] Last Admin: 03/18/25 08:04 Dose: 5 mg Atorvastatin Calcium (Atorvastatin Calcium 20 Mg Tablet) 20 mg PO BEDTIME [facility] Last Admin: 03/17/25 21:03 Dose: 20 mg Calcium Carbonate (Calcium Carbonate 750 Mg Tab.Chew) 750 mg PO Q4H PRN PRN Reason: Heartburn Last Admin: 03/16/25 20:46 Dose: 750 mg Calcium Carbonate (Calcium Carbonate 750 Mg Tab.Chew) 750 mg PO Q6H PRN PRN Reason: Heartburn Carisoprodol (Carisoprodol 350 Mg Tablet) 350 mg PO BEDTIME [facility] Last Admin: 03/17/25 21:52 Dose: 350 mg Carvedilol (Carvedilol 6.25 Mg Tablet) 6.25 mg PO BID [facility]; Protocol Last Admin: 03/18/25 08:04 Dose: 6.25 mg Colchicine (Colchicine 0.6 Mg Tablet) 0.6 mg PO DAILY [facility] Last Admin: 03/18/25 08:04 Dose: 0.6 mg Gabapentin (Gabapentin 100 Mg Capsule) 100 mg PO TID [facility] Last Admin: 03/18/25 08:04 Dose: 100 mg Hydromorphone HCl (Hydromorphone Hcl 2 Mg Tablet) 2.5 mg PO Q3H PRN PRN Reason: Pain, Severe (Pain Scale 7-10) Last Admin: 03/18/25 11:37 Dose: 2.5 mg Lidocaine (Lidocaine 4 % Patch Adh..Patch) 1 patch TRANSDERMA DAILY [facility]; Protocol Last Admin: 03/18/25 08:04 Dose: 1 patch Magnesium Hydroxide (Milk Of Magnesia 30 Ml Oral.Susp) 30 ml PO DAILY PRN PRN Reason: Constipation Magnesium Oxide (Magnesium Oxide 400 Mg Tablet) 800 mg PO DAILY [facility] Last Admin: 03/18/25 08:04 Dose: 800 mg Melatonin (Melatonin 3 Mg Tablet) 6 mg PO BEDTIME PRN PRN Reason: Insomnia Mirtazapine (Mirtazapine 15 Mg Tablet) 15 mg PO BEDTIME [facility] Last Admin: 03/17/25 21:03 Dose: 15 mg Multivitamins/Vitamin C (Multivitamin Tablet) 1 tab PO DAILY [facility] Last Admin: 03/18/25 08:04 Dose: 1 tab Omeprazole (Omeprazole 20 Mg Capsule.Dr) 20 mg PO BID@0630,1630 [facility] Last Admin: 03/18/25 06:00 Dose: 20 mg Ondansetron HCl (Ondansetron Odt 4 Mg Tab.Rapdis) 4 mg TRANSLINGU Q6H PRN PRN Reason: Nausea and Vomiting Last Admin: 03/14/25 12:12 Dose: 4 mg Prednisone (Prednisone 20 Mg Tablet) 20 mg PO DAILY [facility] Last Admin: 03/18/25 08:04 Dose: 20 mg Sodium Chloride (0.9 % Sodium Chloride Flush 3 Ml Syringe) 3 ml IVFLUSH QSHIFT [facility] Last Admin: 03/18/25 08:16 Dose: 3 ml Home Medications ?Medication ?Instructions ?Recorded ?Confirmed ?Last Taken ?Type mirtazapine 15 mg tablet 15 mg PO BEDTIME 11/30/23 03/01/25 03/19/24 09:00 History multivitamin with minerals-folic 1 tab PO DAILY 01/07/24 03/01/25 02/18/25 History acid 200 mcg chewable tablet (Multivitamin Gummies) carisoprodol 350 mg tablet 350 mg PO BEDTIME 03/19/24 03/01/25 03/19/24 09:00 History magnesium glycinate 400 mg PO DAILY 03/19/24 03/01/25 02/18/25 History ondansetron 4 mg disintegrating 4 mg PO Q8H PRN Nausea And Vomiting 01/15/25 03/01/25 02/18/25 History tablet amiodarone 200 mg tablet 200 mg PO DAILY 02/19/25 03/01/25 02/18/25 History apixaban 5 mg tablet (Eliquis) 5 mg PO BID 02/19/25 03/01/25 02/18/25 History colchicine 0.6 mg tablet 0.6 mg PO DAILY 02/19/25 03/01/25 02/18/25 History esomeprazole magnesium 20 mg 20 mg PO DAILY@0630 02/19/25 03/01/25 02/18/25 History capsule,delayed release (Nexium) gabapentin 100 mg capsule 100 mg PO Q8H 02/19/25 03/01/25 02/18/25 History [employer] G[employer] Physical Exam Vitals Vital signs: Temp Pulse Resp BP Pulse Ox O2 Del Method O2 Flow Rate 97.0 F 65 20 128/81 96 Room Air 2 03/18/25 12:00 03/18/25 12:00 03/18/25 12:00 03/18/25 12:00 03/18/25 12:00 03/18/25 12:00 03/10/25 17:40 BMI result Body Mass Index 25.6 Female Genitalia (Pelvic) Bladder/Urethra: Normal meatus Vulva: No lesions Vagina: Nontender Cervix: Grossly normal Uterus: Normal size Adnexa/Parametria: Adnexal Tenderness: None, Adnexal Mass: None and Parametrial Tenderness: None Additional Comments: Minimal blood per vagina [employer] OPER[employer] GASOLINE - Results Labs 03/17/25 09:15 03/16/25 06:51 Labs: Urine 02/28/25 03/13/25 Range/Units 21:50 21:09 Urine Color Yellow Yellow Urine Appearance Clear Clear Urine pH 6.0 5.5 (5.0-9.0) Ur Specific [place] >= 1.030 H 1.025 (1.005-1.025) Urine Protein 30 (1+) H 30 (1+) H (Neg-Trace) mg/dL Urine Glucose (UA) Negative Negative (Negative) mg/dL Antibody Screen Antibody Screen NEGATIVE 02/28/25 19:47 Assessment and Plan (1) Postmenopausal bleeding: Status: Acute Discussed with the patient the differential diagnosis of post menopausal bleeding with normal pelvic exam including but not limited to, endometrial hyperplasia, cancer, polyps and other causes; co testing done, recommended ultrasound t and endometrial sampling to rule out endometrial pathology including endometrial hyperplasia and/or malignancy. EMB done, see procedure Instructed the patient to schedule an ultrasound with a follow-up appointment in 2 weeks. All questions answered, the patient verbalized understanding and agreed with the plan. This note was generated with a voice recognition program. Some errors may have been overlooked during the review of this note. Sometimes these errors may affect the content or meaning of a given sentence. (2) Uterine myoma: Status: Acute Discussed with the patient uterine myoma & the risk of myosarcoma; in addition reviewed with the patient that malignancy and pre malignancy cannot be ruled out without hysterectomy for pathological evaluation ; furthermore, explained to the patient the limitation of pelvic ultrasound and endometrial biopsy in the setting. Discussed with the patient the options of treatment including expectant management versus hysterectomy; the pros and cons, risks benefits of each approach were discussed with the patient including the fact that in cases of myosarcoma, surgical treatment can lead to early diagnosis and positively affects the prognosis; after further discussion, will check pelvic ultrasound finding and discussed with the patient during next scheduled visit. Instructions given the patient to schedule telehealth visit she is a will be discharged tomorrow from rehab (3) Rectovaginal fistula: Status: Acute Defer the management to with general surgery regarding fistula Endometrial Biopsy Details: The patient was counseled regarding the indication and benefits of endometrial sampling to rule out endometrial pathology including not limited to endometrial hyperplasia or endometrial cancer and others; The alternatives (Either do nothing vs. hysteroscopy D&C) & the risks were discussed with the patient including but not limited: pain, uterine perforation, bleeding, infection, possible injury to bladder, bowel, ureter, possible need for blood transfusion with all its possible risks. The patient verbalized understanding all questions answered and signed consent. The patient was placed into the dorsal lithotomy position; a speculum was inserted in the vagina. Using aseptic technique for the procedure, the cervix was cleansed with Betadine. The anterior lip of the cervix was grasped with a single tooth tenaculum. The uterus was sounded to 7 cm with a 4 mm Pipelle was used. Tissues samples were obtained and placed in formalin, in a patient labeled container and sent to the pathology department. At the end of the procedure, there was minimal bleeding noted The patient tolerated the procedure well and was discharged in good condition with the following instructions: Nothing in the vagina until the bleeding stops. No sex until the bleeding stops, to call if any of the following occurs: fever (>100.4), flu-like symptoms, abdominal pain, heavy bleeding, four smelling vaginal discharge. The patient was instructed to schedule a Follow up appointment in 2 weeks to discuss pathology results of the biopsy and treatment options. This note was generated with a voice recognition program. Some errors may have been overlooked during the review of this note. Sometimes these errors may affect the content or meaning of a given sentence. [id number] Biopsy
--- NOTE | 2025-03-18 15:37 | P.PNIM_ITS ---
Subjective Subjective Date of Service: 03/18/25 Interval History: Abdominal pain vaginal spotting Review of Systems abd pain improving but patient is not feeling she pain is better yet also requested her for ambulation has avginal spotting mild Review of Systems: Yes all other systems are reviewed and are negative Physical Exam 2 Vital Signs: Vital Signs: Last Vital Signs Temp 97.0 F 03/18/25 12:00 Pulse 65 03/18/25 12:00 Resp 20 03/18/25 12:00 BP 128/81 03/18/25 12:00 Pulse Ox 96 03/18/25 12:00 O2 Del Method Room Air 03/18/25 12:00 O2 Flow Rate 2 03/10/25 17:40 BMI result Body Mass Index 25.6 Appearance: Alert.? Oriented X3.? cvs: rrr, [id number] . res: clear to auscultation ,no rhonchii or wheezing abd: no rebound or guarding ,bs present,soft,abd pain epigastric . ext pulses present , no cyanosis . neuro: nonfocal. Objective Data Active Medications Acetaminophen (Acetaminophen 325 Mg Tablet) 975 mg PO Q6H PRN PRN Reason: Pain, Mild (Pain Scale 1-3) Amiodarone HCl (Amiodarone Hcl 200 Mg Tablet) 200 mg PO DAILY [facility] Last Admin: 03/18/25 08:04 Dose: 200 mg Documented By: ALONSO Lipase/Protease/Amylase (Lipase/Prot/Amylase /60k Capsule.Dr) 3 cap PO TIDWM [facility] Last Admin: 03/18/25 11:37 Dose: 3 cap Documented By: ALONSO Apixaban (Apixaban 5 Mg Tablet) 5 mg PO BID [facility] Last Admin: 03/18/25 08:04 Dose: 5 mg Documented By: ALONSO Atorvastatin Calcium (Atorvastatin Calcium 20 Mg Tablet) 20 mg PO BEDTIME [facility] Last Admin: 03/17/25 21:03 Dose: 20 mg Documented By: OXANA Calcium Carbonate (Calcium Carbonate 750 Mg Tab.Chew) 750 mg PO Q4H PRN PRN Reason: Heartburn Last Admin: 03/16/25 20:46 Dose: 750 mg Documented By: KIKA-DESSK Calcium Carbonate (Calcium Carbonate 750 Mg Tab.Chew) 750 mg PO Q6H PRN PRN Reason: Heartburn Carisoprodol (Carisoprodol 350 Mg Tablet) 350 mg PO BEDTIME [facility] Last Admin: 03/17/25 21:52 Dose: 350 mg Documented By: OXANA Carvedilol (Carvedilol 6.25 Mg Tablet) 6.25 mg PO BID [facility]; Protocol Last Admin: 03/18/25 08:04 Dose: 6.25 mg Documented By: ALONSO Colchicine (Colchicine 0.6 Mg Tablet) 0.6 mg PO DAILY [facility] Last Admin: 03/18/25 08:04 Dose: 0.6 mg Documented By: ALONSO Gabapentin (Gabapentin 100 Mg Capsule) 100 mg PO TID [facility] Last Admin: 03/18/25 15:08 Dose: 100 mg Documented By: LAONSO Hydromorphone HCl (Hydromorphone Hcl 2 Mg Tablet) 2.5 mg PO Q3H PRN PRN Reason: Pain, Severe (Pain Scale 7-10) Last Admin: 03/18/25 15:08 Dose: 2.5 mg Documented By: ALONSO Lidocaine (Lidocaine 4 % Patch Adh..Patch) 1 patch TRANSDERMA DAILY [facility]; Protocol Last Admin: 03/18/25 08:04 Dose: 1 patch Documented By: ALONSO Magnesium Hydroxide (Milk Of Magnesia 30 Ml Oral.Susp) 30 ml PO DAILY PRN PRN Reason: Constipation Magnesium Oxide (Magnesium Oxide 400 Mg Tablet) 800 mg PO DAILY [facility] Last Admin: 03/18/25 08:04 Dose: 800 mg Documented By: ALONSO Melatonin (Melatonin 3 Mg Tablet) 6 mg PO BEDTIME PRN PRN Reason: Insomnia Mirtazapine (Mirtazapine 15 Mg Tablet) 15 mg PO BEDTIME [facility] Last Admin: 03/17/25 21:03 Dose: 15 mg Documented By: OXANA Multivitamins/Vitamin C (Multivitamin Tablet) 1 tab PO DAILY [facility] Last Admin: 03/18/25 08:04 Dose: 1 tab Documented By: ALONSO Omeprazole (Omeprazole 20 Mg Capsule.) 20 mg PO BID@0630,1630 [facility] Last Admin: 03/18/25 06:00 Dose: 20 mg Documented By: OXANA Ondansetron HCl (Ondansetron Odt 4 Mg Tab.Rapdis) 4 mg TRANSLINGU Q6H PRN PRN Reason: Nausea and Vomiting Last Admin: 03/14/25 12:12 Dose: 4 mg Documented By: SANDIP Prednisone (Prednisone 20 Mg Tablet) 20 mg PO DAILY [facility] Last Admin: 03/18/25 08:04 Dose: 20 mg Documented By: ALONSO Sodium Chloride (0.9 % Sodium Chloride Flush 3 Ml Syringe) 3 ml IVFLUSH QSHIFT [facility] Last Admin: 03/18/25 08:16 Dose: 3 ml Documented By: ALONSO Labs 03/17/25 09:15 03/16/25 06:51 Assessment and Plan (1) Rectal bleeding: Status: Acute (2) Uterine myoma: Status: Acute (3) Acute hypokalemia: Status: Acute (4) Anemia: Status: Acute Plan 65yo F with HTN, HLD, CAD, CHF, pAF on Eliquis, hx pancreatitis, recent [place] [facility] with resultant ileostomy bag followed by admission to the ICU at [facility] from 01/20-01/25 for pulmonary edema/pericardial effusion/anemia/new onset a flutter/intra-abdominal abscess/Finegoldia bacteremia after which patient was transferred to [facility] where she has abscesses drained; finished a course of antibiotics and discharged home on 02/17/25. Presented back to the ER on 02/18/25 overnight with a chief complaint of abdominal pain with question of cholecystitis ruled out, discharged home 02/27. Re-admitted 02/28 for abdominal pain and nausea along with vaginal spotting and BRBPR Acute/chronic anemia with BRBPR\Vaginal hemoglobin stable Had sigmoidoscopy by GI with exam results noted as fistula probably rectovaginal, blood from the bleeding fibroid probably diverting into rectum Interventional Radiology plan for Uterine artery embolization 03/10/2025 (taper over 1 week).on prednisone taper has some vaginal spotting from 2-3 days-h/h stable (d/w Ir and sugery rec photo editor eval)-photo editor rec pelvic us added photo editor eval pending acute pancreatitis: abd pain /nausea /vomiting improving Still hesitant to take p.o. intake ct abd: possible acute pancreatitis us abd:No cholelithiasis or gross choledocholithiasis.Concerning liver disease/hepatocellular disease/cirrhosis. Trace amount of free fluid, lesser sac and ascite plan: mrcp-No evidence of cholelithiasis or choledocholithiasis. Diffuse edema of the mesenteric fat, which may be secondary to pancreatitis, although this finding is not localized to the peripancreatic region.Nodular liver contour, suggestive of cirrhosis. Tolerating p.o. diet, trial of p.o. Dilaudid /tylenol surgery eval-no acute surgerical intervention. mild leucocytosis :? reactive to pancreatitis /steriods. mild atelacatsis lungs on ct abd ? cystitis on ct abd ,but no urinary c/o. plan: leucocytosis improving check ua -minimum pyuria, no bacteriuria, patient has no urinary symptoms. seen by urology-reviewed CT abdomen findings, less likely urinary infection concern. continue pancreatitis rx, taper steriods. Acute HypoK/Mag Repleted. follow renal/divalent Pericardial effusion continue colchicine Hx CAD stable and well compensated at this time Hx Afib start Eliquis . 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
[2025-03-19 03:30] VITALS: BP 134/72; PULSE 69; RESP 16; TEMP 36.6; O2SAT 97
[2025-03-19 07:02] VITALS: BP 142/77; PULSE 65; RESP 18; TEMP 36.7; O2SAT 98
[2025-03-19] MEDS: Lipase/Prot/Amylase 12/38/60K CAPSULE.DR 3 CAP PO ×2 (08:52→10:57)
[2025-03-19] MEDS: 0.9 % Sodium Chloride Flush 3 ML SYRINGE IVFLUSH (08:59)
--- NOTE | 2025-03-19 09:19 | MHC.CM.PN ---
SNF has insurance auth. [facility] transport has been set up for 3:30 PM; MD & RN are aware. IMM addressed with Patient at bedside and original was given to her and a copy has been placed on the chart.
[2025-03-19 09:42] LABS: Hematocrit 34.1 % (37.0-47.0); Hemoglobin 11.4 g/dl (12.0-16.0); Mean Corpuscular HGB Conc 33.4 g/dl (31.0-35.0); Mean Corpuscular Hemoglobin 29.1 pg (27.0-33.0); Mean Corpuscular Volume 87.0 fL (80.0-98.0); NRBC Abs Auto 0.000 X10*3/uL (0.0-0.012); NRBC Pct Auto 0.0 /100WBC (0.0-0.2); Platelet Count 304 X10*3/uL (160-400); Red Blood Count 3.92 X10*6/uL (4.20-5.50); White Blood Count 13.2 X10*3/uL (4.8-10.8)
[2025-03-19 10:25] LABS: Alanine Aminotransferase 52 U/L (0-31); Albumin Level 3.0 g/dL (3.5-5.0); Alkaline Phosphatase 193 U/L (39-117); Anion Gap 12 (12-20); Aspartate Amino Transferase 72 U/L (5-31); Blood Urea Nitrogen 8 mg/dL (9-16); Calcium 7.9 mg/dL (8.4-10.2); Carbon Dioxide 28 mmol/L (22-29); Chloride 98 mmol/L (96-108); Creatinine Clr Calc Pharmacy 89.7; Estimated Glomerular Filt Rate > 60; Sodium 135 mmol/L (135-145); Total Protein 7.0 g/dL (6.5-8.0)
[2025-03-19 10:31] LABS: Magnesium 1.4 mg/dL (1.6-2.6); Potassium 2.6 mmol/L (3.3-5.1)
[2025-03-19] MEDS: Potassium Chloride ER 20 MEQ TAB.ER.PRT 40 MEQ PO (10:57)
[2025-03-19] MEDS: Potassium Chloride/H20 10 MEQ/100 ML PIGGYBACK 100 MEQ IV (10:58)
[2025-03-19 11:04] VITALS: BP 128/73; PULSE 72; RESP 18; TEMP 36.9; O2SAT 96
[2025-03-19] MEDS: Potassium Chloride ER 20 MEQ TAB.ER.PRT PO (13:19)
[2025-03-19 14:57] VITALS: BP 118/70; PULSE 87; RESP 16; TEMP 36.8; O2SAT 96
--- NOTE | 2025-03-19 15:17 | P.DS_ITS ---
DS: Providers Provider Date of Service: 03/19/25 Date of admission: 02/28/25 21:50 Date of discharge: 03/19/25 Primary care physician: Joi Rebollar MD Consults: 02/28/25 22:01 Consult to General Surgery Routine Consulting Provider: [facility] Reason for consultation: Acute cholecystitis Has provider been notified: No Consult to Urology Routine Consulting Provider: [facility] Reason for consultation: bladder abn on CT scan Has provider been notified: No 02/28/25 23:51 Consult to Ostomy Care Routine 02/28/25 23:53 Consult to Gastroenterology Routine Consulting Provider: Carole Velásquez Reason for consultation: rectal bleeding Has provider been notified: No 03/13/25 08:18 Consult to Cardiology Routine Consulting Provider: [facility] Reason for consultation: chest pain Has provider been notified: No Consult to General Surgery Routine Consulting Provider: [facility] Reason for consultation: ? cholecystitis 03/14/25 08:26 Consult to Urology Routine Consulting Provider: [facility] Reason for consultation: Cystitis empsematous Has provider been notified: No 03/17/25 07:57 Consult to Obstetrics / Gynecology Routine Consulting Provider: Terrell Hillman Reason for consultation: Vaginal spotting Has provider been notified: No DS: Diagnosis Discharge Diagnosis (1) Rectal bleeding: Status: Acute (2) Uterine myoma: Status: Acute (3) Acute hypokalemia: Status: Acute (4) Anemia: Status: Acute (5) Increased ileostomy output: Status: Acute (6) Pancreatitis: Status: Acute (7) Postmenopausal bleeding: Status: Acute (8) Hypomagnesemia: Status: Resolved DS: Summary Hospital Course Hospital Course: From the history and physical by the admitting hospitalist, Nikki Hurst NP, 03/01/25: Patient is a 65-year-old female with past medical history diverticulitis, perforated colon 2022, NSTEMI 2022, prolonged QTC, colostomy revision 2022, Aflutter/ Afib on eliquis 2023, Pericarditis 2023, pancreatitis 2023, colovesical fistula, uterine fibroids with negative endometrial bx, subtotal colectomy and ventral hernia with repair 01/07/2025 [facility], abdominal abscesses 2024, tobacco dependence with cessation 2022 no COPD, cataracts, insomnia, 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 HIDA scan was negative for any definitive cholecystitis at that time. Patient was followed by General surgery. Patient was treated for gastroenteritis, hypo magnesium and hypokalemia. Patient originally had subtotal colectomy and hernia repair at [facility] on 01/07/2025. Ileostomy bag resulted. And patient was eventually discharged back home. Patient returned to the [facility] mid January and was admitted to the ICU as she developed pulmonary edema with pericardial effusion, anemia and new onset a flutter with intra-abdominal abscess and bacteremia. At that time patient was transferred to [facility]. Patient's abscess was treated conservatively. Patient eventually return home after rehab in [place]? 02/17/2025. Patient returned to the ED at [facility] on 02/18 for abdominal pain and was admitted and then discharged as above on 02/27. Workup in the emergency department today revealed stable pelvic abscesses and nearly resolved subcutaneous anterior pelvic wall abscess. In addition no evidence of obstruction noting pelvic wall hernias. Acute cholecystitis noted on CT scan. Resolving pancreatitis also indicated. Cirrhosis of the liver present. Patient has increased small right pleural effusion with a trace pericardial effusion. Patient had been taking colchicine for the pericardial effusion. Also noted high density material within the urinary bladder which could indicate posterior hemorrhage. H&H stable currently at 8.1 and 24.6 with a normal platelet count. Eliquis has been held. Patient will not receive Lovenox. Patient's potassium 2.8. Patient will only agree to IV potassium. A central line was placed in the right subclavian 18:00 on 02/28/2025 in the emergency department. Patient has poor vascular access at this time. Blood cultures x2 were collected. Patient was started on Zosyn. IV fluids with dextrose initiated as patient's blood sugar hovering around 90 and patient's p.o. intake has been very poor over the last 3- 5 days. Lactic acid 0.7. There is resolving leukocytosis. Patient denies any fever, chills, chest pain, nausea or vomiting. Patient is on room air not experience any shortness of breath with no evidence of hypoxia. Magnesium low at 1.5 and patient received 2 g of magnesium in the ED. lipase 142. Patient does not meet criteria for sepsis at this time. This case was reviewed with General surgery and Urology by emergency room provider and both felt patient could be admitted at [facility] directly to receive care. General surgery will see patient in the a.m.. Urology requesting bladder irrigation as the UA notes hematuria. In addition we will consult GI noting rectal bleeding considering the rectum is closed off due to history of colectomy. Will also consult blindstitch lining feller for continued vaginal spotting and bleeding secondary to fibroid tumors. Pain management effective with Dilaudid. Regimens reviewed with patient and will order 1 mg q.3 for severe pain p.r.n. and 0.5 mg q.3 for moderate pain. Med rec is currently pending. Reviewed advanced directives inpatient states she is a full code. 5yo F with HTN, HLD, CAD, CHF, pAF on Eliquis, hx pancreatitis, recent subtotal colectomy/hernia repair [place] [facility] [place]07[place] with resultant ileostomy bag followed by admission to the ICU at [facility] from 01/20-01/25 for pulmonary edema/pericardial effusion/anemia/new onset a flutter/intra-abdominal abscess/[place] bacteremia after which patient was transferred to [facility] where she has abscesses drained; finished a course of an tibiotics and discharged home on 02/17/25. Presented back to the ER on 02/18/25 overnight with a chief complaint of abdominal pain with question of cholecystitis ruled out, discharged home 02/27. Re-admitted 02/28 for abdominal pain and nausea along with vaginal spotting and BRBPR. Known to have fibroid uterus. She was transfused 2 units of packed red blood cells. Gastroenterology, Gynecology, and General Surgery were consulted. Ultimately, she underwent sigmoidoscopy on 03/04/25; this showed rectovaginal fistula; likely she had bleeding from the fibroid diverting in to the short remaining rectal stump. She then underwent uterine artery embolization on 03/10/25 then was placed on prednisone taper. Eventually, Eliquis was resumed and hemoglobin stabilized. Bedside endometrial biopsy was done on 03/18/25 and the patient will follow up with Dr Hillman from [facility]. Magnesium and potassium were repleted and she was placed on PO maintenance; levels should be rechecked in 1 week. Due to prior prolonged pancreatitis and high-output ileostomy, she was started on pancreatic encyzme replacement. She was discharged to [facility] for short-term rehabilitation. Time Attestation Discharge Coordination Time (in mins): 45 Quality: Safe Use of Opioids Does Pt have an Active Cancer Diagnosis on the Problem List?: No Quality: Stroke Does the patient have a stroke diagnosis?: No Physical Exam Vital Signs: Vital Signs: Last Vital Signs Temp 98.3 F 03/19/25 14:57 Pulse 87 03/19/25 14:57 Resp 16 03/19/25 14:57 BP 118/70 03/19/25 14:57 Pulse Ox 96 03/19/25 14:57 O2 Del Method Room Air 03/19/25 14:57 O2 Flow Rate 2 03/10/25 17:40 BMI result Body Mass Index 25.6 Gen: in no acute distress HEENT: sclera anicteric, moist mucus membranes Neck: supple Lungs: clear to auscultation bilaterally Heart: regular rate and rhythm, no murmurs Abd: soft, non-tender, non-distended, ileostomy pink Ext: no edema Skin: warm/well-perfused Neuro: alert and oriented x3, no focal findings Psych: appropriate affect DS: Data Data Completed and Pending Completed studies during hospitalization [Text1]: Laboratory Results WBC 13.2 X10*3/uL (4.8-10.8) H 03/19/25 09:15 RBC 3.92 X10*6/uL (4.20-5.50) L 03/19/25 09:15 Hgb 11.4 g/dl (12.0-16.0) L 03/19/25 09:15 Hct 34.1 % (37.0-47.0) L 03/19/25 09:15 MCV 87.0 fL (80.0-98.0) 03/19/25 09:15 MCH 29.1 pg (27.0-33.0) 03/19/25 09:15 MCHC 33.4 g/dl (31.0-35.0) 03/19/25 09:15 RDW 14.6 % (11.0-16.0) 03/19/25 09:15 Plt Count 304 X10*3/uL (160-400) 03/19/25 09:15 MPV 9.6 fL (9.4-12.3) 03/19/25 09:15 Immature Gran % (Auto) 0.6 % (0.0-0.4) H 03/11/25 06:32 Neut % (Auto) 85.7 % (45-73) H 03/11/25 06:32 Lymph % (Auto) 9.1 % (20-40) L 03/11/25 06:32 [place] % (Auto) 3.9 % (2-11) 03/11/25 06:32 Eos % (Auto) 0.1 % (0-4) 03/11/25 06:32 Baso % (Auto) 0.6 % (0-2) 03/11/25 06:32 Lymph # (Auto) 1.2 X10*3/uL (1.2-4.9) 03/11/25 06:32 [place] # (Auto) 0.5 X10*3/uL (0.1-1.2) 03/11/25 06:32 Eos # (Auto) 0.0 X10*3/uL (0.0-0.4) 03/11/25 06:32 Baso # (Auto) 0.1 X10*3/uL (0.0-0.2) 03/11/25 06:32 Abs Immat Gran (auto) 0.08 X10*3/uL (0.00-0.03) H 03/11/25 06:32 Absolute Neuts (auto) 10.9 x10*3/uL (2.0-8.3) H 03/11/25 06:32 Absolute Nucleated RBC 0.000 X10*3/uL (0.0-0.012) 03/19/25 09:15 Nucleated RBC % (auto) 0.0 /100WBC (0.0-0.2) 03/19/25 09:15 Hold Purple Top SEE NOTE 03/16/25 06:51 PT 17.5 SEC (10.9-12.4) H 03/02/25 03:45 INR 1.5 (0.9-1.1) H 03/02/25 03:45 Sodium 134 mmol/L (135-145) L 03/19/25 14:50 Potassium 3.8 mmol/L (3.3-5.1) D 03/19/25 14:50 Chloride 99 mmol/L (96-108) 03/19/25 14:50 Carbon Dioxide 28 mmol/L (22-29) 03/19/25 14:50 Anion Gap 11 (12-20) L 03/19/25 14:50 BUN 7 mg/dL (9-16) L 03/19/25 14:50 Creatinine 0.58 mg/dL (0.5-1.4) 03/19/25 14:50 Estim Creat Clear Calc 83.5 03/19/25 14:50 Estimated GFR > 60 03/19/25 14:50 Random Glucose 136 mg/dL (60-115) H 03/19/25 14:50 Fasting Glucose 90 mg/dL (60-99) 03/10/25 06:51 Lactic Acid 0.7 mmol/L (0.5-2.0) 02/28/25 21:16 Uric Acid 4.2 mg/dL (2.4-5.7) 03/01/25 03:58 Calcium 7.9 mg/dL (8.4-10.2) L 03/19/25 14:50 Magnesium 1.5 mg/dL (1.6-2.6) L 03/19/25 14:50 Total Bilirubin 0.4 mg/dL (0.0-1.0) 03/19/25 09:15 Direct Bilirubin < 0.2 mg/dL (0.0-0.5) 03/16/25 06:51 AST 72 U/L (5-31) H 03/19/25 09:15 ALT 52 U/L (0-31) H 03/19/25 09:15 Alkaline Phosphatase 193 U/L (39-117) H 03/19/25 09:15 Troponin I High Sens < 2.7 ng/L (<3.5-17.0) 03/13/25 08:34 B-Natriuretic Peptide 211 pg/mL (<100) H 03/01/25 03:58 Total Protein 7.0 g/dL (6.5-8.0) 03/19/25 09:15 Albumin 3.0 g/dL (3.5-5.0) L 03/19/25 09:15 Lipase 180 U/L (8-78) H 03/16/25 06:51 Urine Color Yellow 03/13/25 21:09 Urine Appearance Clear 03/13/25 21:09 Urine pH 5.5 (5.0-9.0) 03/13/25 21:09 Ur Specific [place] 1.025 (1.005-1.025) 03/13/25 21:09 Urine Protein 30 (1+) mg/dL (Neg-Trace) H 03/13/25 21:09 Urine Glucose (UA) Negative mg/dL (Negative) 03/13/25 21:09 Urine Ketones Trace mg/dL (Negative) 03/13/25 21:09 Urine Blood Small (1+) (Negative) H 03/13/25 21:09 Urine Nitrite Negative (Negative) 03/13/25 21:09 Ur Leukocyte Esterase Small (1+) (Negative) H 03/13/25 21:09 Urine RBC 0-2 /HPF (0-2) 03/13/25 21:09 Urine WBC 11-20 /HPF (0-5) 03/13/25 21:09 Ur Squamous Epith Cells 3-5 /HPF (0-2) 03/13/25 21:09 Urine Bacteria None Seen (None Seen) 03/13/25 21:09 Hyaline Casts 3-5 /LPF (0-2) 03/13/25 21:09 Granular Casts Present 03/13/25 21:09 Stool Occult Blood POSITIVE (NEGATIVE) 03/01/25 17:37 Blood Type O Positive 02/28/25 19:47 Antibody Screen NEGATIVE 02/28/25 19:47 Crossmatch See Detail 02/28/25 19:47 Impressions Embolization 03/10/25 14:26 IMPRESSION: Technically successful embolization of the bilateral uterine arteries Electronically signed by: Abdirahman Tabor MD 03/13/2025 05:02 PM EDT Abdomen Ultrasound 03/13/25 09:42 IMPRESSION: No cholelithiasis or gross choledocholithiasis. Concerning liver disease/hepatocellular disease/cirrhosis. Trace amount of free fluid, lesser sac and ascites. Electronically signed by: Paulie Beatty MD 03/13/2025 10:19 AM EDT RP Cholangiopancreatography MRI 03/14/25 13:45 IMPRESSION: 1. No evidence of cholelithiasis or choledocholithiasis. 2. Diffuse edema of the mesenteric fat, which may be secondary to pancreatitis, although this finding is not localized to the peripancreatic region. 3. Nodular liver contour, suggestive of cirrhosis. 4. Anasarca. Small bilateral pleural effusions, right greater than left. Electronically signed by: Rashard Saha MD 03/14/2025 02:46 PM EDT RP Pelvic/Transvag US 03/18/25 17:25 IMPRESSION: 1. Fibroid uterus as described. 2. Endometrial stripe is not thickened. However, there is a small amount of fluid in the endometrial canal. 3. The left ovary is not visualized. Electronically signed by: Rashard Saha MD 03/19/2025 07:10 AM EDT RP Pending studies at discharge: Pending at discharge 03/18/25 14:31 Pap Smear [PTH] Routine 03/18/25 14:33 Surgical Path [Surgical] [PTH] Routine Discharge Plan Discharge Anticipated Discharge Date/Time: 03/19/25 15:02 Patient Disposition: [facility] Discharge Diagnosis: vaginal bleeding, fibroid uterus rectovaginal fistula acute/chronic anemia hypokalemia hypomagnesemia pancreatitis atrial fibrillation Referrals: [facility] [Outside] - 1 Week Joi Rebollar MD [Primary Care Provider, Internal Medicine] - 1 Week Terrell Hillman MD [Physician, ENGINE MONITOR] - 2 Weeks Discharge Medications: New magnesium oxide 400 mg (241.3 mg magnesium) Tablet 800 mg PO DAILY Qty: 60 0RF omeprazole 20 mg Capsule,Delayed Release(Dr/Ec) 20 mg PO BID@0630,1630 Qty: 60 0RF Creon 12,000-38,000 -60,000 unit Capsule,Delayed Release(Dr/Ec) 3 cap PO TIDWM Qty: 270 0RF prednisone 5 mg tablet See Rx Instructions .ROUTE .COMPLEX Qty: 20 0RF Rx Instructions: 20 mg daily x 2 days, then 15 mg daily x 2 days, then 10 mg daily x 2 days, then 5 mg daily x 2 days potassium chloride [K-Tab] 20 mEq tablet extended release 20 meq PO BID Qty: 60 0RF Continued atorvastatin 20 mg tablet 20 mg PO BEDTIME Qty: 90 3RF mirtazapine 15 mg tablet 15 mg PO BEDTIME multivit with min-folic acid [Multivitamin Gummies] 200 mcg Tablet,Chewable 1 tab PO DAILY ondansetron 4 mg Tablet,Disintegrating 4 mg PO Q8H PRN (Reason: Nausea And Vomiting) carisoprodol 350 mg tablet 350 mg PO BEDTIME amiodarone 200 mg tablet 200 mg PO DAILY gabapentin 100 mg capsule 100 mg PO Q8H colchicine 0.6 mg tablet 0.6 mg PO DAILY Eliquis 5 mg tablet 5 mg PO BID esomeprazole magnesium [Nexium] 20 mg capsule,delayed release(DR/EC) 20 mg PO DAILY@0630 hydromorphone 2 mg tablet 1 - 2 mg PO Q8H PRN (Reason: pain) Qty: 20 0RF carvedilol [Coreg] 6.25 mg tablet 6.25 mg PO BID 90 Days Qty: 180 3RF Rx Instructions: must administer with a meal/food Discontinued magnesium glycinate 100 mg magnesium capsule 400 mg PO DAILY Discharge Orders: Discharge Order (Routine); Ordered 03/19/25 Ordered By: Heriberto Arambula Diet: Advance to usual diet Activity on Discharge: As tolerated Stand Alone Forms: Patient Portal Discharge page, Work/School Release Print Language: Swedish Other Ambulatory Orders: Basic Metabolic Panel (Routine) Timeframe: 1 Week Facility: [facility] - Location: Laboratory Ordered By: Heriberto Arambula Magnesium (Routine) Timeframe: 1 Week Facility: [facility] - Location: Laboratory Ordered By: Heriberto Arambula Care Plan Goals: recovery from hospitalization Health Concerns: vaginal bleeding, fibroid uterus rectovaginal fistula acute/chronic anemia hypokalemia hypomagnesemia pancreatitis atrial fibrillation Plan of Treatment: take Creon as prescribed take potassium chloride and magnesium oxide as prescribed; repeat BMP + magnesium level in 1 week prednisone taper: 20 mg daily x 2 days, then 15 mg daily x 2 days, then 10 mg daily x 2 days, then 5 mg daily x 2 days Gamaliel resumed follow up with Dr Hillman [Gynecology] in 2 weeks Please follow up with your primary care doctor within 1 week. Return to the hospital if you experience recurrent or worsening symptoms. Assessment: See Discharge Summary.
[2025-03-19 15:18] LABS: Anion Gap 11 (12-20); Blood Urea Nitrogen 7 mg/dL (9-16); Calcium 7.9 mg/dL (8.4-10.2); Carbon Dioxide 28 mmol/L (22-29); Chloride 99 mmol/L (96-108); Creatinine Clr Calc Pharmacy 83.5; Estimated Glomerular Filt Rate > 60; Magnesium 1.5 mg/dL (1.6-2.6); Potassium 3.8 mmol/L (3.3-5.1); Sodium 134 mmol/L (135-145)
== END 2025-03-19 16:00 | disposition skilled nursing facility (03) | DRG 744 ==
LOC: HO.ED 21:41 → HO.EDOVER 21:54 → HO.IMC 03-01 04:35
PROVIDERS: Hospitalist; Internal Medicine; Internal Medicine Gastroenterology; Nurse Practitioner Family; Obstetrics & Gynecology; Student in an Organized Health Care Education/Training Program; Admitting Provider Student in an Organized Health Care Education/Training Program; Emergency Provider Emergency Medicine; PCP Internal Medicine; Visit Provider Family Medicine
PROC: 0DJD8ZZ Inspection of Lower Intestinal Tract, Via Natural or Artificial Opening Endoscopic (ICD-10-PCS; CPT 45330; principal; 2025-03-04 15:00)
PROC: 04LE3DT Occlusion of Right Uterine Artery with Intraluminal Device, Percutaneous Approach (ICD-10-PCS; principal; 2025-03-10 16:00)
DX: D25.9 Leiomyoma of uterus, unspecified (principal); K85.90 Acute pancreatitis without necrosis or infection, unspecified; D62 Acute posthemorrhagic anemia; K62.5 Hemorrhage of anus and rectum; N82.3 Fistula of vagina to large intestine; I31.39 Other pericardial effusion (noninflammatory); J98.11 Atelectasis; K81.0 Acute cholecystitis; K74.60 Unspecified cirrhosis of liver; Z80.0 Family history of malignant neoplasm of digestive organs; E87.6 Hypokalemia; E83.42 Hypomagnesemia; N30.80 Other cystitis without hematuria; I25.10 Atherosclerotic heart disease of native coronary artery without angina pectoris; I48.0 Paroxysmal atrial fibrillation; R94.31 Abnormal electrocardiogram [ECG] [EKG]; Z93.2 Ileostomy status; Z87.891 Personal history of nicotine dependence; Z79.01 Long term (current) use of anticoagulants; Z79.899 Other long term (current) drug therapy
CPT/HCPCS: 36415; 37243; 71045; 74176; 74177; 74181; 76705; 76830; 76856; 80048; 80053; 80076; 81001; 81003; 82272; 83605; 83690; 83735; 83880; 84132; 84484; 84550; 85014; 85018; 85025; 85027; 85610; 86850; 86900; 86901; 86923; 87040; 87626; 88175; 88305; 93005; 97116; 97161; 97530; 99152; 99153; 99285; C1757; C1760; C1769; C1887; C1889; C1894; J0131; J0690; J1100; J1171; J1644; J1885; J2003; J2250; J2405; J2470; J2543; J2704; J3010; J3475; J3480; J7120; P9016; P9047; Q9967

== ENCOUNTER → 2025-02-28 11:40 | Outpatient (BNV) | payer MEDICARE, SELFPAY | PROVIDERS: Admitting Provider Student in an Organized Health Care Education/Training Program; Emergency Provider Emergency Medicine; PCP Internal Medicine; Visit Provider Internal Medicine | DX: R94.31 Abnormal electrocardiogram [ECG] [EKG] (principal) | CPT/HCPCS: 93010 ==

== ENCOUNTER → 2025-02-28 12:40 | Outpatient (BNV) | payer MEDICARE, SELFPAY | PROVIDERS: Emergency Provider Emergency Medicine; PCP Internal Medicine; Visit Provider Radiology Diagnostic Radiology | DX: R10.11 Right upper quadrant pain (principal); Z95.9 Presence of cardiac and vascular implant and graft, unspecified | CPT/HCPCS: 71045; 74177 ==

== ENCOUNTER 2025-02-28 21:50 | Outpatient (BNV) | payer MEDICARE, SELFPAY | END 2025-03-12 15:26 | PROVIDERS: Admitting Provider Student in an Organized Health Care Education/Training Program; Emergency Provider Emergency Medicine; PCP Internal Medicine; Visit Provider Radiology Diagnostic Radiology | DX: K82.8 Other specified diseases of gallbladder (principal); K80.20 Calculus of gallbladder without cholecystitis without obstruction; J90 Pleural effusion, not elsewhere classified | CPT/HCPCS: 74176 ==

== ENCOUNTER 2025-02-28 21:50 | Outpatient (BNV) | payer MEDICARE, SELFPAY | END 2025-03-13 08:44 | PROVIDERS: Admitting Provider Student in an Organized Health Care Education/Training Program; Emergency Provider Emergency Medicine; PCP Internal Medicine; Visit Provider Internal Medicine Cardiovascular Disease | DX: Z13.6 Encounter for screening for cardiovascular disorders (principal) | CPT/HCPCS: 93010 ==

== ENCOUNTER 2025-02-28 21:50 | Outpatient (BNV) | payer MEDICARE, SELFPAY | END 2025-03-14 13:45 | PROVIDERS: Admitting Provider Student in an Organized Health Care Education/Training Program; Emergency Provider Emergency Medicine; PCP Internal Medicine; Visit Provider Radiology Diagnostic Radiology | DX: K85.90 Acute pancreatitis without necrosis or infection, unspecified (principal); R47.01 Aphasia | CPT/HCPCS: 74181 ==

== ENCOUNTER 2025-02-28 21:50 | Outpatient (BNV) | payer MEDICARE, SELFPAY | END 2025-03-10 14:26 | PROVIDERS: Admitting Provider Student in an Organized Health Care Education/Training Program; Emergency Provider Emergency Medicine; PCP Internal Medicine; Visit Provider Student in an Organized Health Care Education/Training Program | DX: D25.9 Leiomyoma of uterus, unspecified (principal) | CPT/HCPCS: 37243 ==

== ENCOUNTER 2025-02-28 21:50 | Outpatient (BNV) | payer MEDICARE, SELFPAY | END 2025-03-12 07:59 | PROVIDERS: Admitting Provider Student in an Organized Health Care Education/Training Program; Emergency Provider Emergency Medicine; PCP Internal Medicine; Visit Provider Internal Medicine Cardiovascular Disease | DX: R94.31 Abnormal electrocardiogram [ECG] [EKG] (principal); R07.9 Chest pain, unspecified | CPT/HCPCS: 93010 ==

== ENCOUNTER 2025-02-28 21:50 | Outpatient (BNV) | payer MEDICARE, SELFPAY | END 2025-03-13 09:42 | PROVIDERS: Admitting Provider Student in an Organized Health Care Education/Training Program; Emergency Provider Emergency Medicine; PCP Internal Medicine; Visit Provider Radiology Diagnostic Radiology | DX: K76.9 Liver disease, unspecified (principal) | CPT/HCPCS: 76705 ==

== ENCOUNTER 2025-02-28 21:50 | Outpatient (BNV) | payer MEDICARE, SELFPAY | END 2025-03-18 17:25 | PROVIDERS: Admitting Provider Student in an Organized Health Care Education/Training Program; Emergency Provider Emergency Medicine; PCP Internal Medicine; Visit Provider Radiology Diagnostic Radiology | DX: D25.9 Leiomyoma of uterus, unspecified (principal) | CPT/HCPCS: 76830; 76856 ==

== ENCOUNTER 2025-02-28 21:50 | Outpatient (BNV) | payer MEDICARE, SELFPAY | END 2025-03-01 08:00 | PROVIDERS: Admitting Provider Student in an Organized Health Care Education/Training Program; Emergency Provider Emergency Medicine; PCP Internal Medicine; Visit Provider Internal Medicine | DX: R94.31 Abnormal electrocardiogram [ECG] [EKG] (principal) | CPT/HCPCS: 93010 ==

== ENCOUNTER → 2025-02-28 21:50 | Outpatient (BNV) | payer MEDICARE, SELFPAY | PROVIDERS: Admitting Provider Student in an Organized Health Care Education/Training Program; Emergency Provider Emergency Medicine; PCP Internal Medicine; Visit Provider Internal Medicine Cardiovascular Disease | DX: R07.9 Chest pain, unspecified (principal) | CPT/HCPCS: 99222 ==

== ENCOUNTER → 2025-02-28 21:50 | Outpatient (BNV) | payer MEDICARE, SELFPAY | PROVIDERS: Admitting Provider Student in an Organized Health Care Education/Training Program; Emergency Provider Emergency Medicine; PCP Internal Medicine; Visit Provider Internal Medicine Gastroenterology | DX: K62.5 Hemorrhage of anus and rectum (principal) | CPT/HCPCS: 45330; 99222; 99232 ==

== ENCOUNTER → 2025-02-28 21:50 | Outpatient (BNV) | payer MEDICARE, SELFPAY | PROVIDERS: Admitting Provider Student in an Organized Health Care Education/Training Program; Emergency Provider Emergency Medicine; PCP Internal Medicine; Visit Provider Nurse Practitioner Family | DX: Z93.2 Ileostomy status (principal); K81.0 Acute cholecystitis | CPT/HCPCS: 99223; 99233; 99499 ==

== ENCOUNTER → 2025-02-28 21:50 | Outpatient (BNV) | payer MEDICARE, SELFPAY | PROVIDERS: Admitting Provider Student in an Organized Health Care Education/Training Program; Emergency Provider Emergency Medicine; PCP Internal Medicine; Visit Provider Urology | DX: R93.429 Abnormal radiologic findings on diagnostic imaging of unspecified kidney (principal) | CPT/HCPCS: 99221 ==

== ENCOUNTER → 2025-02-28 21:50 | Outpatient (BNV) | payer MEDICARE, SELFPAY | PROVIDERS: Admitting Provider Student in an Organized Health Care Education/Training Program; Emergency Provider Emergency Medicine; PCP Internal Medicine; Visit Provider Surgery | DX: R10.9 Unspecified abdominal pain (principal); K85.90 Acute pancreatitis without necrosis or infection, unspecified | CPT/HCPCS: 99222 ==

== ENCOUNTER 2025-03-21 08:53 | Outpatient (AMB) | payer MEDICARE, SELFPAY ==
--- OUTSIDE RECORDS SUMMARY | 2025-03-21 08:54 | XMS_ITS | Encounter Summary ---
Author Organization [facility] Address [email or web address] [place] [phone] Phone Care Team Providers Care Ingot Stripper Name Role Phone Nessa Hillman NP Primary Care Provider [phone] Lupillo Sinclair MD Unavailable [phone] Encounter Details Date Type Department Care Team (Late st Contact Info) Description 02/04/2025 Procedure [place] [facility] [place] [address] [facility] [place] [address] Social History Tobacco Use Types Packs/Day Years Used Date Smoking Tobacco: Former Cigarettes 1.1 80.8 0 09/04/1976 - 05/05/2024 Smokeless Tobacco: Never Comments:quit smoking may Alcohol Use Standard Drinks/Week Comments Never 0 (1 standard drink = 0.6 oz pur e alcohol) Education Answer Date Recorded Are you interested in more education? Not on aminta e 12/30/2022 Are you concerned about learning? Not on file 12/30/2022 No 12/30/2022 No 12/30/2022 Food Answer Date Recorded Within the past 6 months we worried whether our food would run out before we got money to buy more. Never True 01/29/2025 Within the past 6 months the food we bought just didn't last and we didn't have enough money to get more. Never True Residential Stability Answer Date Recor ded What is your housing situation today? I have johnny sing 01/29/2025 How many times have you move d in the past 12 months? Zero (I did not move) 01/29/2025 Paying for Meds Answer Date Recorded Do you have trouble paying for medicines? No 01/29/2025 Paying Utility Bills Answer Date Record ed Do you have trouble paying your heating or elect ricity bill? No 01/29/2025 Transportation Answer Date Recorded Has the lack of transportati on kept you from medical appointments or from getting medications? No 01/29/2025 Digital Access Answer Date Recorded No 01/29/2025 Yes 01/29/2025 Do you have reliable internet access at home? Ye s 01/29/2025 Do you have a device (e.g., phone, tablet, computer) with a working camera? Yes 01/29/2025 Intimate Partner Violence Answer Date R ecorded Are you denied basic needs s uch as food, clothing, or medical care? No 01/26/2025 In the past 12 months have y ou been in a relationship with a person who hurts, threatens, or tries to control you? No 01/26/2025 Are you denied basic needs s uch as food, clothing, or medical care? No 01/26/2025 In the past 12 months have y ou been in a relationship with a person who hurts, threatens, or tries to control you? No 01/26/2025 Comments No Sex and Gender Information Value Date Recorded Sex Assigned at Female 06/03/2024 2:20 PM EDT Legal Sex Female 9:50 PM EDT Gender Identity Female 06/03/2024 2:20 PM EDT Sexual Orientation Straight 06/03/2024 2: 20 PM EDT documented as of this encounter Plan of Treatment Upcoming Encounters Date Type Department Care Team (Late st Contact Info) Description 05/26/2025 11:10 AM EDT Office Visit [facility] [address] [place] [address] Lin Tellez MD [address] [facility] [address] [place] [id number] 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 It is not the complete legal health record.[facility]
--- OUTSIDE RECORDS SUMMARY | 2025-03-21 08:55 | XMS_ITS | Data Portability ---
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 Procedures Surgical History Date Name Laterality Status Provider Name and Address Organization Details Recorded Time 5 Knee Kenalog 40 1cc Injection, Bilateral completed Abdirahman Kimbrough PA-C [address] [facility], [place], [address], [facility] 10/21/2024 08:15:18 4 Knee Kenalog 40 1cc Injection, Bilateral completed Abdirahman Kimbrough PA-C [address], [place], [address], [facility] 07/22/2024 07:59:12 4 Knee Kenalog 40 1cc Injection, Bilateral completed Abdirahman Kimbrough PA-C [address], [place], [address], [facility] 04/23/2024 05:33:06 4 Knee Kenalog 40 1cc Injection, Bilateral completed Abdirahman Kimbrough PA-C [address], [place], [address], [facility] 01/15/2024 07:07:11 Imaging Results None recorded. Procedure Notes None recorded. Medical Equipment None Reported. Allergies Allergen ID Allergen Name Allergen Category Reaction Reaction Severity Criticality Documentation Date Start Date Code Code System Note Provider Name and Address Organization Details Recorded Time 12709 Non-stero idal anti-infl ammatory agent (product) medicatio n Not available Not available Not available 11/06/20232022 72339 005 SNOMED Not Available [facility] 4 13:16:37 37379 Augmentin medicatio n Not available Not available Not available 11/06/20232015 24958 2 RxNorm Not Available [facility] 4 13:16:37 31844 erythromy florentin medicatio n Not available Not available Not available 11/06/20232020 4053 RxNorm Not Available [facility] 4 13:16:37 91278 aspirin medicatio n Not available Not available Not available 11/06/20232015 1191 RxNorm Not Available [facility] 4 13:16:38 68868 Substance with sulfonami de structure and antibacte rial mechanism of action (substanc e) medicatio n Not available Not available Not available 11/06/20232015 02858 8003 SNOMED Not Available [facility] 4 13:16:38 Medications Name Sig Start Date [...] No t Available esomeprazole magnesium 20 mg capsule,dean yed release TAKE ONE CAPSULE BY MOUTH [...] ONCE DIRECTED BY [facility] AT [facility] active Not Available Not Available No t [...] Updated DateTime 10/21/2024 157.48 cm 32 kg/m2 24272.66 g Abdirahman Kimbrough PA-C [address] [place] [address], [address], [facility] 10/21/2024 13:49:42 Date Recorded Body height Body mass index (BMI) Body weight Provider Name and Address Organization Details Last Updated DateTime 01/15/2024 157.48 cm 32 kg/m2 62064.66 g Abdirahman Kimbrough PA-C [address] [place] [address], [address], [facility] 01/15/2024 11:05:53 Date Recorded Body height Body mass index (BMI) Body weight Provider Name and Address Organization Details Last Updated DateTime 04/23/2024 157.48 cm 32 kg/m2 53642.66 g Abdirahman Kimbrough PA-C [address] [place] [address], [address], [facility] 04/23/2024 11:16:23 Date Recorded Body height Body mass index (BMI) Body weight Provider Name and Address Organization Details Last Updated DateTime 07/22/2024 157.48 cm 32 kg/m2 64237.66 g Abdirahman Kimbrough PA-C [address] [place] [address], [address], [facility] 07/22/2024 12:49:40 Social History None recorded. Functional Status None recorded. Mental Status None recorded. Family History Nothing Reported. Medical History Condition Response Gastrointestinal Disease Y Kidney/Bladder Problems Y Heart Attack (MS) Y Gynecological HistoryNo gynecological history recorded. Obstetrics History GPAL:G 0 P 0 0 0 0 Past Encounters Encounter ID Performer Location Encounter Start Date Encounter Closed Date Diagnosis/Indication Diagnosis SNOMED-CT Code Diagnosis ICD10 Code Diagnosis Note [id number] [facility] [address] [place] [address] 01/15/2024 10:44:22 01/25/2024 13:44:56 Osteoarthritis of knee 196355913 M17.9 [id number] Abdirahman Kimbrough PA-C [facility] [address] [place] [address] 04/23/2024 10:57:15 05/10/2024 08:44:54 Osteoarthritis of knee 968457206 M17.9 [id number] Abdirahman Kimbrough PA-C [facility] [address] [place] [address] 07/22/2024 12:38:38 08/08/2024 15:29:32 Osteoarthritis of knee 338422654 M17.9 [id number] Abdirahman Kimbrough PA-C [facility] [address] [place] [address] 10/21/2024 13:25:27 11/06/2024 11:52:24 Osteoarthritis of knee 116754070 M17.9 Health Concerns Section Related Observation LastModified by Organization Detai ls LastModified Time None Recorded Concern Status LastModified by Organization Details LastModified Time None Recorded Advance Directives Directive None Recorded Payers Insurance Date Sequence Insurance Name Policy Number Policy Mendoza Covered Member ID Mendoza Member ID Guarantor Name 04/23/2024 1 [facility] [id number] Kia Anaid Phelps [id number] Kia Phelps 02/04/2025 1 [employer] (MEDICARE REPLACEMENT /ADVANTAGE - PPO) [id number] Kia Phelps [id number] Kia Phelps Notes Date Note Type Note [...] and oriented x3. Normal insight, affect, and grooming.RANGE CONSERVATIONIST: Gross motor coordination is intact. No spasticity or clonus noted.Extremities: Calves are soft and nontender. Skin on lower extremities is intact. Palpable pedal pulses bilaterally. Orthopedic Exam:Bilateral knees Restricted range of motion good anterior-posterior stability no laxity valgus or varus stressing. Exquisite medial joint line tenderness with patellofemoral crepitance noted, 1+ effusion, 4/5 strength. X-rays report: 4 views ordered and independently reviewed at [facility] of the taken previously show advanced [...] currently attending cardiac rehabilitation. Abdirahman Kimbrough PA-C [address] [place] [address] [address] [facility], [place], [address], [facility] 01/15/2024 11:25:26 04/23/2024 text/html I am [...] and oriented x3. Normal insight, affect, and grooming.RANGE CONSERVATIONIST: Gross motor coordination is intact. No spasticity or clonus noted.Extremities: Calves are soft and nontender. Skin on lower extremities is intact. Palpable pedal pulses bilaterally. Orthopedic Exam:Bilateral knees Restricted range of motion good anterior-posterior stability no laxity valgus or varus stressing. Exquisite medial joint line tenderness with patellofemoral crepitance noted, 1+ effusion, 4/5 strength. X-rays report: 4 views ordered and independently reviewed at [facility] of the taken previously show advanced [...] currently attending cardiac rehabilitation. Abdirahman Kimbrough PA-C [address] [place] [address] [address], [place], [address], [facility] 04/23/2024 11:34:22 07/22/2024 text/html [...] is scheduled to see a specialist at [facility] in [place] going to require her to have probably another operation for her colostomy and therefore likely going to delay her knee arthroplasty until sometime in the late spring. PMH/PSH/MEDS/ALL/FMH /SOC HX/ ROS: All reviewed in detail per my medical intake sheetGeneral Exam: Vitals signs as noted below, antalgic gait noted.Mental Status: Alert and oriented x3. Normal insight, affect, and grooming.RANGE CONSERVATIONIST: Gross motor coordination is intact. No spasticity or clonus noted.Extremities: Calves are soft and nontender. Skin on lower extremities is intact. Palpable pedal pulses bilaterally.Orthoped ic Exam:Bilateral knees Restricted range of motion good anterior-posterior stability no laxity valgus or varus stressing. Exquisite medial joint line tenderness with patellofemoral crepitance noted, 1+ effusion, 4/5 strength. X-rays report: 4 views ordered and independently reviewed at [facility] of the taken previously show advanced [...] currently attending cardiac rehabilitation. Abdirahman Kimbrough PA-C [address] [place] [address] [address], [place], [address], [facility] 07/22/2024 13:07:57 10/21/2024 text/html [...] is scheduled to see a specialist at [facility] in going to require her to have [...] 4 views ordered and independently reviewed at [facility] of the taken previously show advanced [...] currently attending cardiac rehabilitation. Abdirahman Kimbrough PA-C [address] [place], [place] [address] [address], [place], [address], [place] [facility] 10/21/2024 14:54:05 OBGyn Episode No OBEpisode recorded.
--- NOTE | 2025-03-21 08:57 | A.OFFVIS_ITS ---
Intake Visit Reasons: EMB and ultrasound results Allergies clams Allergy (Severe, Verified 02/28/25 11:41) Stomach Upset clavulanic acid (Augmentin) Allergy (Unknown, Verified 02/28/25 11:41) GI, Difficulty breathing codeine (CODEINE) Allergy (Unknown, Verified 02/28/25 11:41) SENSITIVITY erythromycin base (Erythromycin Base) Allergy (Unknown, Verified 02/28/25 11:41) GI, DIFF BREATHING Sulfa (Sulfonamide Antibiotics) Allergy (Unknown, Verified 02/28/25 11:41) RASH morphine (MORPHINE) Adverse Reaction (Severe, Verified 02/28/25 11:41) Difficulty Breathing aspirin (Aspirin) Adverse Reaction (Mild, Verified 02/28/25 11:41) STOMACH UPSET melatonin Adverse Reaction (Verified 02/28/25 11:41) Vomiting HPI Comments Details: Endometrium, biopsy: Superficial strips of benign endometrium, endocervical and squamous epithelium; abundant blood; no atypia identified. [facility] Medical History Pancreatitis Insomnia Bilateral knee pain Polyarthralgia MARKIE (acute kidney injury) Back pain Arthritis History of transfusion of packed red blood cells Anemia Cardiomyopathy MARKIE (acute kidney injury) MARKIE (acute kidney injury) Anxiety Small bowel obstruction Myocardial infarction NSTEMI (non-ST elevated myocardial infarction) NSVT (nonsustained ventricular tachycardia) PVC (premature ventricular contraction) Hypertension Perforated diverticulum Irritable bowel syndrome with constipation Barretts esophagus GERD (gastroesophageal reflux disease) Surgical History S/P colon resection PIC line (peripherally inserted central catheter) removal History of low anterior resection of rectum Status post cardiac catheterization Ileostomy in place H/O dilation and curettage History of exploratory laparotomy (05/11/23) S/P colostomy Colovesical fistula History of esophagogastroduodenoscopy (EGD) Hx of colonoscopy Family History Father Colon cancer Congestive heart failure Paternal Aunt Colon cancer Mother Congestive heart failure Afib Social History Household Members: None Housing: House Are you a primary home care liaison to a significant other at home: No Do you presently have visiting nurse or other home services: Yes ([facility] on hold) Alcohol intake: never Comment: located near nursing station Patient Tobacco Use Status: Former Tobacco user Tobacco use type: Cigarette Cigarette Packs Per Day: 0.5 Cigarettes Per Day: 10.0 Years Smoked: 25 e-Cigarette/Vaping Use: Former Use Second Hand Smoke Exposure: No Substance Use Type: Marijuana Advance Directives Date on File: 12/29/23 service: No Cognitive needs: No Hearing needs: No Vision needs: Yes Review of Systems Const All systems reviewed & are unremarkable except as noted in HPI and below Reports as per HPI and Reports no additional complaints GI Reports no additional complaints Reports no additional complaints Telehealth Telehealth Telehealth Platform: Telephone Location of provider rendering services: practice address Location of patient: address on file Patient Identification confirmed using: Name, : Yes Telehealth method: voice only Patient verbally consented to treatment: Yes Patient verbally consented to billing insurance company: Yes Patient informed of any privacy concerns related to visit: Yes Minutes spent on Phone/Video with Pt.: 5 Assessment & Plan Assessment & Plan (1) Postmenopausal bleeding: Code(s): N95.0 - Postmenopausal bleeding Category: Medical Plan: Discussed with the patient the results of the endometrial biopsy. Discussed with the patient the sensitivity, specificity, positive and negative predictive value, of endometrial biopsy in detecting endometrial pathology including but not limited to endometrial hyperplasia, cancer and other pathology; instructed the patient to call in case vaginal bleeding recurs, the next step will be to proceed with a diagnostic hysteroscopy/D&C for further endometrial sampling evaluation to rule out endometrial pathology. All questions answered and the patient verbalized understanding and agreed with the plan. (2) Uterine myoma: Code(s): D25.9 - Leiomyoma of uterus, unspecified Category: Medical Plan: Discussed with the patient the findings on pelvic ultrasound & the risk of myosarcoma; in addition reviewed with the patient that malignancy and pre malignancy cannot be ruled out without hysterectomy for pathological evaluation ; furthermore, explained to the patient the limitation of pelvic ultrasound and endometrial biopsy in the setting. Discussed with the patient the typical symptoms that are caused by myomas including but not limited to pelvic pain, pressure symptoms, abnormal uterine bleeding. In addition discussed with the patient options of treatment for myomas including: surgical treatment including hysterectomy . All pros and cons, risks and benefits of all options were discussed with the patient. The pat ient understands that delay in surgical treatment in case of myosarcoma can affect her prognosis, after further discussion, the patient decided to think about it and get back to us I spent a total of 20 minutes reviewing the chart, talking to the patient via video and documenting in the medical record. 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 Recommended follow-up with GI/General surgery regarding fistula treatment Orders: Orders US pelvic and transvaginal 3 Months D25.9 - Leiomyoma of uterus, unspecified Coding Level of Care Code Est Pt Level 3 (40711) Diagnoses Postmenopausal bleeding N95.0 Uterine myoma D25.9 Rectovaginal fistula N82.3
== END 2025-03-21 10:54 | disposition home or self-care (01) ==
LOC: HO.HWS 08:53
PROVIDERS: PCP Internal Medicine; Visit Provider Obstetrics & Gynecology
DX: N95.0 Postmenopausal bleeding (principal); D25.9 Leiomyoma of uterus, unspecified; N82.3 Fistula of vagina to large intestine
CPT/HCPCS: 99213

== ENCOUNTER → 2025-03-21 08:53 | Outpatient (BNVA) | payer MEDICARE, SELFPAY | PROVIDERS: PCP Internal Medicine; Visit Provider Obstetrics & Gynecology | DX: Z71.2 Person consulting for explanation of examination or test findings (principal); N95.0 Postmenopausal bleeding; D25.9 Leiomyoma of uterus, unspecified; N82.3 Fistula of vagina to large intestine | CPT/HCPCS: 99212 ==

== ENCOUNTER 2025-03-30 13:36 | Inpatient (IN) | payer MEDICARE, SELFPAY ==
[2025-03-30] VITALS (38 sets, daily range): BP systolic 73–103; BP diastolic 32–62; PULSE 61–93; RESP 9–18; TEMP 36.1–37; O2SAT 93–98; BMI 19.8
--- NOTE | ~2025-03-30 | CT_ITS ---
CLINICAL HISTORY: abdominal pain CT abdomen and pelvis without contrast Comparison: None provided Findings: No consolidation or effusion. High density material within the gallbladder lumen. Possible gallbladder wall thickening with mild surrounding fat stranding. Nodular hepatic contour. Solid organs are otherwise within normal limits. No pneumoperitoneum, or pneumatosis. Right anterior pelvic wall ostomy is present with a bowel containing parastomal hernia measuring 9 cm. At the superior aspect of the hernia, there is a rounded 45 mm hypodense focus which could represent a distended/incarcerated small bowel loop versushematoma or abscess. Appendix is not seen. The bones are intact. IMPRESSION: 1. Cholelithiasis versus gallbladder sludge with possible superimposed acute cholecystitis. This could be further assessed with ultrasound, if clinically indicated. 2. Parastomal right lower quadrant hernia with an associated indeterminate rounded focus as described above. This could represent an incarcerated bowel loop versus hematoma versus abscess. 3. Cirrhosis. This document has been electronically signed by: Yunior Duran MD on 03/30/2025 18:24:07
--- NOTE | ~2025-03-30 | XR_ITS ---
CLINICAL HISTORY: central line 1 view chest x-ray Comparison: CR/SR - XR CHEST 1V - 01/24/25 11:30 EDT Findings: Catheter projects over the mid SVC. No consolidation or effusion. Normal size heart. No acute fracture. IMPRESSION: 1. No acute findings. This document has been electronically signed by: Yunior Duran MD on 03/30/2025 17:48:36
--- NOTE | ~2025-03-30 | IR_ITS ---
CLINICAL HISTORY The patient presents to interventional radiology for placement of a port for superintendent terminal IV access. PROCEDURES: 1. Real-time ultrasound-guided access into the left internal jugular vein after documentation of selected vessel patency, and permanent image storing in the patient records. 2. Placement of a 6.6 Trin[place] single-lumen port. 3. Removal of right neck central line. CLINICIAN: Ned Fernández NP MEDICATIONS: - Versed, Lidocaine 1% SQ -Antibiotics: Ancef 2g -For additional details, please see nursing flowsheet. Complications: None. Estimated blood loss: <5 ml Specimens: None. Contrast: None. Fluoroscopy time: 1.5 min MODERATE SEDATION TIME: 0 min PROCEDURE NOTE: The procedure, risks, benefits, and alternatives were carefully explained to the patient and written informed consent was obtained. The patient was placed supine on the fluoroscopy table. A timeout was performed. The left neck and chest was prepped and draped in usual sterile fashion. Maximum barrier technique was utilized. Local anesthesia was administered to the access site with 1% lidocaine. Preliminary ultrasound showed left sided multinodular thyroid. Under ultrasound guidance, the left internal jugular vein was accessed with a 5 fr micropuncture set. A 0.035 in wire was advanced into the IVC. A peel-away sheath was advanced over the wire and into the SVC, and the wire was removed. Next, subcutaneous lidocaine was administered to the chest. The port pocket was created after the skin incision, utilizing blunt dissection. Using blunt dissection, a subcutaneous tunnel was created that connects from the port pocket to the venotomy site. Through the peel-away sheath, the 6.6 Trin[place]adian port catheter was placed. The catheter position was verified with fluoroscopy to be at the superior vena cava/right atrial junction. The port was connected to the catheter and was placed in the pocket. The port incision site was closed with interrupted 3-0 Vicryl subcutaneous sutures and surgical glue. Prior to closing the skin, 1 g of Ancef solution was placed in the pocket. The port was tested, flushed, and packed with heparin per routine protocol. The patient tolerated the procedure well. Next, the right neck central line was sterilely prepped. The suture was cut and the catheter was removed. 5 minutes of pressure was held and hemostasis was achieved. A sterile pressure dressing was applied. The patient was stable after the procedure and was transferred to the PACU. The procedure was performed with a dedicated nurse with continuous monitoring of vital signs. A permanent image of the ultrasound the neck and fluoroscopic image of the chest was saved and sent to PACS. FINDINGS: 1. Patent left internal jugular vein 2. Placement of a 6.6 Trin[place]adian single lumen port. 3. Port flushes and aspirates very well with a 10 mL syringe. No pneumothorax. 4. Multinodular left-sided thyroid IR/IR cvc insert tunnel w prt/motor coach bus driver IMPRESSION: Placement of a 6.6 [place] single-lumen port. Removal of right-sided central line. PLAN: - The patient will be brought back to the floor when stable by protocol. - Port may be used immediately. -Primary care provider follow-up for incidental finding of multinodular left-sided thyroid. Recommend formal complete thyroid ultrasound. -The patient should have the port flushed routinely every 4-6 weeks with heparin. This procedure was performed by Ned Fernández NP and directly supervised by Abdirahman Tabor M.D. Electronically signed by: Abdirahman Tabor MD 04/15/2025 10:06 AM EDT Workstation: [id number]
--- NOTE | ~2025-03-30 | CT_ITS ---
PROCEDURE: CT AND US-GUIDED CHOLECYSTOSTOMY TUBE CLINICAL INFORMATION: ACUTE CHOLECYSTITIS, YVETTE DRAIN PLACEMENT COMPARISON: n/a PROCEDURES: 1. Limited preprocedure CT and US of the abdomen. Permanent images saved in PACS. 2. CT and US-guided cholecystostomy tube 3. Limited post procedure CT and US of the abdomen. Permanent images saved in PACS. CLINICIANS: Ned Fernández NP Preprocedural imaging reviewed with Paulina Rangel MD. MEDICATIONS: -Dilaudid, and lidocaine 1% 10 mL SQ -Antibiotics: None -For additional details, please see nursing flowsheet. COMPLICATIONS: None ESTIMATED BLOOD LOSS: < 5 ml CONTRAST: None SPECIMENS: A specimen was sent for culture. MODERATE SEDATION TIME: 0 min PROCEDURE NOTE: The procedure, risks, benefits, and alternatives were carefully explained to the patient and written informed consent was obtained. The patient was placed in the left lateral decubitus position on the CT table. A timeout was performed. A limited CT and US of the abdomen was performed to localize the gall bladder and choose appropriate needle entry and trajectory. The patient was prepped and draped in usual sterile fashion. The skin and subcutaneous tissues were anesthetized with lidocaine. Under CT and US guidance, a Yueh was advanced to the gall bladder. Yellow and slightly sludgy fluid was immediately aspirated. A 0.0035 J wire was inserted through the the Yueh and coiled in the gall bladder. The Yueh catheter was then removed over the wire. Over the wire, an 8 fr all-purpose drainage catheter was advanced and coiled into the fluid collection under CT and US guidance. The wire was then removed. A total of 100 ml of yellow fluid was removed. The catheter was secured to the skin with a 3-0 nylon suture. A MIKI bulb was then attached to the drainage catheter. A limited postprocedure CT was then obtained showing proper tube positioning. The patient was stable after the procedure and was transferred to the post anesthesia care unit. The procedure was done with a dedicated nurse for monitoring of vital signs. CT/CT drain peritoneum Impression: CT and US -guided cholecystostomy tube placement This procedure was performed by Ned Fernández NP and supervised by Paulina Rangel MD. Electronically signed by: Jhony Rangel MD 04/09/2025 05:51 PM EDT
--- NOTE | 2025-03-30 13:43 | ECG_ITS ---
Test Reason : low bp Blood Pressure : */* mmHG Vent. Rate : 90 BPM Atrial Rate : 90 BPM P-R Int : 162 ms QRS Dur : 76 ms QT Int : 388 ms P-R-T Axes : 0 31 246 degrees QTcB Int : 474 ms Normal sinus rhythm ST & T wave abnormality, consider inferior ischemia ST & T wave abnormality, consider anterolateral ischemia Prolonged QT Abnormal ECG When compared with ECG of 13-Mar-2025 08:44, T wave inversion now evident in Inferior leads T wave inversion now evident in Anterior leads Referred By: Daniela Vickers Electronically Signed By: SERGIO ISAACS MD
--- NOTE | 2025-03-30 14:18 | PC.NURSE ---
Pt very hard stick. MD Vickers at bedside attempting Ultrasound Line along with Jennifer RN. Able to get ultrasound line in L upper bicep 20g- unable to obtain labwork. This RN reached out to phlebotomy for assistance. Pending phlebotomy assistance with lab draw.
--- OUTSIDE RECORDS SUMMARY | 2025-03-30 14:24 | XMS_ITS ---
Author Organization [facility] on Care Team Providers Care Feller Hand Name Role Phone Nicole Bragg Unavailable Unavailable Jessica Cabrera Unavailable Unavailable Nessa Kim Unavailable Unavailable Allergies and adverse reactions Code CodeSystem Substance Reaction Severity StartDate Concern Status 559403499 SNOMED CT Sulfa Antibiotics Unknown 03/19/2025 active 7052 RXNORM Morphine Unknown 03/19/2025 active 6711 RXNORM Melatonin Unknown 03/19/2025 active 4053 RXNORM Erythromycin Unknown 03/19/2025 active 2670 RXNORM Codeine Unknown 03/19/[id number] Clavulanic Acid Unknown 03/19/[id number] Clam Unknown 03/19/2025 active 1191 RXNORM Aspirin Severe 03/19/2025 active Care Team Name Role Address Phone Organization Man Nicole Bragg PCP [address] [place] [address], [place], [address], [place] (Office): : [facility] 03/19/2025 - 03/29/2025 Jessica Cabrera [address] [facility], [place], [address], [place] (Office): : [facility] 03/19/2025 - 03/29/2025 Nessa Kim [address] [place] [address], [place], [address], [place] (Office): : [facility] 03/19/2025 - 03/29/2025 Goals Section Goals Description Status Target Date Advanced Directives will be honored and reevalua lola as needed Active 06/17/2025 Increase patient's ability to fall asleep or viri ntain sleep Active 06/17/2025 Minimize risk for falls Active 06/17/20 25 Minimize risk for injury related to falls Active 06/17/2025 Skin will remain free of pk akdown within limits of disease process Active 06/17/2025 Will be clean, dressed and w ell groomed daily to promote dignity and psychosocial well-being Active 06/17/2025 Will be discharged to home w hen clinical and rehabilitation goals are met Active 06/17/2025 Will be maintained in as govind an and dry a dignified state as possible Active 06/17/2025 Will decrease/minimize skin breakdown risks Acti ve 06/17/2025 Will express feelings of adj ustment to new surroundings by next review Active 06/17/2025 Will express that pain management is within acce ptable limits Active 06/17/2025 Will have medication dose reduction/elimination as indicated Active 06/17/2025 Will have no complication related to ostomy Acti ve 06/17/2025 Will have no skin breakdown Active 06/04 Will maintain existing ADL self performance Acti ve 06/17/2025 Will not develop complications related to decrea sed mobility Active 06/17/2025 Will receive assistance necessary to meet ADL ne eds Active 06/17/2025 Will reduce episodes of util ization of breakthrough pain medication Active 06/17/2025 Will show improvement in mood/behavior Active 06/17/2025 Will show no side effects of medication use Acti ve 06/17/2025 Will show no signs of hallucinations or delusion al thinking Active 06/17/2025 Will tolerate diet, texture and fluid consistency without signs and symptoms of aspiration Active 06/17/2025 Immunizations Immunization Status Vaccine Details Vaccine Code CodeSystem Date Notes Influenza completed Influenza, split virus, trivalent, injectable, contains preservative 141 CVX created date: 03/26/2025 administer ed date: 06/01/2024 Verified in [facility] Prevnar 20 Pneumococcal conjugate (PCV20) completed Pneumococcal conjugate vaccine 20-valent (PCV20), polysaccharide [id number] conjugate, adjuvant, preservative free 216 CVX created date: 03/26/2025 administer ed date: 12/19/2024 Verified in [facility] RSV, recombinant, protein subunit RSVpreF, adjuvant rec completed Respiratory syncytial virus (RSV), vaccine, recombinant, protein subunit RSV prefusion F, adjuvant reconstituted, 0.5 mL, preservative free 303 CVX created date: 03/26/2025 administer ed date: 06/01/2024 Verified in [facility] SARS-COV-2 (COVID-19) vaccine, UNSPECIFIED completed SARS-COV-2 (COVID-19) vaccine, UNSPECIFIED Mfg: [employer] 2 213 CVX created date: 03/26/2025 administer ed date: 11/04/2020 Verified in [facility] SARS-COV-2 (COVID-19) vaccine, UNSPECIFIED completed SARS-COV-2 (COVID-19) vaccine, UNSPECIFIED Mfg: [employer] 1 213 CVX created date: 03/26/2025 administer ed date: 10/14/2020 Verified in [facility] COVID-19, mRNA, LNP-S, PF, 50 mcg/0.5 mL completed SARS-COV-2 (COVID-19) vaccine, mRNA, spike protein, LNP, preservative free, 50 mcg/0.5 mL dose Mfg: [employer] Spikevax 312 CVX created date: 03/26/2025 administer ed date: 06/30/2024 Verified in [facility] COVID-19, mRNA, LNP-S, PF, 50 mcg/0.5 mL completed SARS-COV-2 (COVID-19) vaccine, mRNA, spike protein, LNP, preservative free, 50 mcg/0.5 mL dose Mfg: [employer] Bilvalent 312 CVX created date: 03/26/2025 administer ed date: 10/01/2023 Verified in [facility] COVID-19, mRNA, LNP-S, PF, 50 mcg/0.5 mL completed SARS-COV-2 (COVID-19) vaccine, mRNA, spike protein, LNP, preservative free, 50 mcg/0.5 mL dose Mfg: [employer] Booster #1 312 CVX created date: 03/26/2025 administer ed date: 07/10/2021 Verified in [facility] Medications Section Medication Name Status Code CodeSystem Dose Route Frequency Admin Type Sig Text Start Date End Date HYDROmorphone HCl Tablet 2 MG aborted 605328 RXNORM 1 tablet Oral as needed PRN Give 1 tablet by mouth every 8 hours as needed for Pain Managm ent May cause drowsi ness. Avoid alcoho l. 03/20 predniSONE Oral Tablet 5 MG complete d 168449 RXNORM 20 mg Oral one time a day Titrati on Give 20 mg by mouth one time a day for PAF for 2 Days THEN Give 15 mg by mouth one time a day for PAF for 2 Days THEN Give 10 mg by mouth one time a day for PAF for 2 Days THEN Give 5 mg by mouth one time a day for PAF for 2 Days 03/22 510645 RXNORM 15 mg Oral one time a day Titrati on Give 20 mg by mouth one time a day for PAF for 2 Days THEN Give 15 mg by mouth one time a day for PAF for 2 Days THEN Give 10 mg by mouth one time a day for PAF for 2 Days THEN Give 5 mg by mouth one time a day for PAF for 2 Days 03/24 723783 RXNORM 10 mg Oral one time a day Titrati on Give 20 mg by mouth one time a day for PAF for 2 Days THEN Give 15 mg by mouth one time a day for PAF for 2 Days THEN Give 10 mg by mouth one time a day for PAF for 2 Days THEN Give 5 mg by mouth one time a day for PAF for 2 Days 03/26 951832 RXNORM 5 mg Oral one time a day Titrati on Give 20 mg by mouth one time a day for PAF for 2 Days THEN Give 15 mg by mouth one time a day for PAF for 2 Days THEN Give 10 mg by mouth one time a day for PAF for 2 Days THEN Give 5 mg by mouth one time a day for PAF for 2 Days 03/28 Fleet Enema Enema 7-19 GM/118ML active 505445 RXNORM 1 unit Rectal as needed PRN Insert 1 unit rectal ly every 24 hours as needed for Consti pation Use only if Bisaco dyl Suppos itory is ineffe ctive 2024 - Magnesium Oxide Tablet 400 MG aborted 19861203 RXNORM 800 mg Oral one time a day Routine Give 800 mg by mouth one time a day for Acid Indege stion 03/24 Omeprazole Capsule Delayed Release 20 MG active 758783 RXNORM 1 capsul e Oral two times a day Routine Give 1 capsul e by mouth two times a day for Acid Indige stion Take on empty stomac h. Do not crush. May be opened and sprink led on apples auce. 2024 - Bisacodyl Suppository 10 MG active 117060 RXNORM 1 suppos itory Rectal as needed PRN Insert 1 suppos itory rectal ly every 24 hours as needed for consti pation Use if Senna is Ineffe ctive 2024 - Acetaminophen Tablet 325 MG active 471527 RXNORM 2 tablet Oral as needed PRN Give 2 tablet by mouth every 6 hours as needed for Pain Do not exceed 3 grams in 24 hours. T otal 650 mg AND Give 2 tablet by mouth every 6 hours as needed for Elevat ed temp >101 Do not exceed 3 grams in 24 hours. T otal 650 mg 2024 - 531492 RXNORM 2 tablet Oral as needed PRN Give 2 tablet by mouth every 6 hours as needed for Pain Do not exceed 3 grams in 24 hours. T otal 650 mg AND Give 2 tablet by mouth every 6 hours as needed for Elevat ed temp >101 Do not exceed 3 grams in 24 hours. T otal 650 mg 2024 - Senna Tablet 8.6 MG active 368852 RXNORM 1 tablet Oral as needed PRN Give 1 tablet by mouth every 24 hours as needed for Consti pation 2024 - K-Tab Oral Tablet Extended Release 20 MEQ aborted 525963 0 RXNORM 1 tablet Oral two times a day Routine Give 1 tablet by mouth two times a day for [place] lemia 03/26 Lipitor Tablet 20 MG active 111695 RXNORM 1 tablet Oral in the evening Routine Give 1 tablet by mouth in the evenin g for hyperc holste rolemi a Avoid grapef ruit juice 2024 - Creon Oral Capsule Delayed Release Particles [id number] UNIT aborted 228497 RXNORM 3 capsul e Oral with meals Routine Give 3 capsul e by mouth with meals for Pancre atic insuff icienc y 03/24 Carisoprodol Oral Tablet 350 MG active 123462 RXNORM 350 mg Oral at bedtime Routine Give 350 mg by mouth at bedtim e for Sleep Aide 2024 - Colchicine Oral Tablet 0.6 MG aborted 156984 RXNORM 1 tablet Oral one time a day Routine Give 1 tablet by mouth one time a day for Perica rdial Effusi on 03/28 Mirtazapine Oral Tablet 15 MG active 164034 RXNORM 1 tablet Oral at bedtime Routine Give 1 tablet by mouth at bedtim e for Sleep aide 2024 - Coreg Oral Tablet 6.25 MG active 112787 RXNORM 1 tablet Oral two times a day Routine Give 1 tablet by mouth two times a day for Cardia c Mainte nace 2024 - Amiodarone HCl Oral Tablet 200 MG active 632802 RXNORM 1 tablet Oral one time a day Routine Give 1 tablet by mouth one time a day for Afib 2024 - Gabapentin Capsule 100 MG aborted 050167 RXNORM 1 capsul e Oral every 8 hours Routine Give 1 capsul e by mouth every 8 hours for Pain Managm ent May cause drowsi ness or dizzin ess. Avoid alcoho l. 03/28 Multivitamin Gummies Womens Oral Tablet Chewable aborted 200 mcg Oral one time a day Routine Give 200 mcg by mouth one time a day for Supple ment 03/24 Eliquis Tablet 5 MG active 240648 7 RXNORM 1 tablet Oral two times a day Routine Give 1 tablet by mouth two times a day for Afib Monito r for bleedi ng, bruisi ng, and black tarry stools 2024 - NexIUM Oral Capsule Delayed Release 20 MG aborted 770377 RXNORM 1 capsul e Oral one time a day Routine Give 1 capsul e by mouth one time a day for GERD/H eartbu rn 03/20 Ondansetron HCl Tablet 4 MG active 632524 RXNORM 1 tablet Oral as needed PRN Give 1 tablet by mouth every 8 hours as needed for Nausea and Vomiti ng 2024 - HYDROmorphone HCl Tablet 2 MG active 444903 RXNORM 1 tablet Oral as needed PRN Give 1 tablet by mouth every 8 hours as needed for Modera te Pain May cause drowsi ness. Avoid alcoho l. AND Give 2 tablet by mouth every 8 hours as needed for Severe Pain 2024 - 893313 RXNORM 2 tablet Oral as needed PRN Give 1 tablet by mouth every 8 hours as needed for Modera te Pain May cause drowsi ness. Avoid alcoho l. AND Give 2 tablet by mouth every 8 hours as needed for Severe Pain 2024 - Stomahesive Protective Powder active n/a n/a Topical every day shift Routine Apply to Stoma topica lly every day shift for Stoma Secure ment 2024 - Vitamin B12 Oral Tablet active 1000 mcg Oral one time a day Routine Give 1000 mcg by mouth one time a day for supple ment 2024 - Metamucil 4 in 1 Fiber Oral Packet aborted 1 scoop Oral one time a day Routine Give 1 scoop by mouth one time a day for Consti pation Mix with 8oz of water 03/21 Iron Oral Tablet 325 (65 Fe) MG aborted 1 tablet Oral one time a day Routine Give 1 tablet by mouth one time a day every other day for Supple ment 03/21 Metamucil 3 in 1 Daily Fiber Oral Capsule 400 MG aborted 1 capsul e Oral one time a day Routine Give 1 capsul e by mouth one time a day for consti pation 03/23 Metamucil 4 in 1 Fiber Oral Packet aborted 1 scoop Oral as needed PRN Give 1 scoop by mouth every 24 hours as needed for consti pation 03/23 Metamucil 4 in 1 Fiber Oral Packet active 1 scoop Oral as needed PRN Give 1 scoop by mouth every 24 hours as needed for consti pation 2024 - Metamucil 3 in 1 Daily Fiber Oral Capsule 400 MG active 1 capsul e Oral one time a day Routine Give 1 capsul e by mouth one time a day for consti pation (may use pill or wafer form of Metamu cil) 2024 - Lomotil Oral Tablet 2.5-0.025 MG active 005687 1 RXNORM 2.5 mg Oral three times a day Routine Give 2.5 mg by mouth three times a day for loose stools (cdiff sample negati ve per lab on 5) 2024 - Creon Oral Capsule Delayed Release Particles [id number] UNIT active 114584 RXNORM 3 capsul e Oral with meals Routine Give 3 capsul e by mouth with meals for Pancre atic insuff icienc y AND Give 3 capsul e by mouth in the aftern oon for Creon with Prior to Snack 2024 - 845683 RXNORM 3 capsul e Oral in the afternoon Routine Give 3 capsul e by mouth with meals for Pancre atic insuff icienc y AND Give 3 capsul e by mouth in the aftern oon for Creon with Prior to Snack 2024 - Multivitamin- Minerals Oral Tablet active 1 tablet Oral in the morning Routine Give 1 tablet by mouth in the mornin g for vitami n 2024 - Magnesium Oxide Tablet 400 MG active 330599 RXNORM 800 mg Oral two times a day Routine Give 800 mg by mouth two times a day for Low Magnes ium Level 2024 - Colchicine Oral Tablet active 0.3 mg Oral one time a day Routine Give 0.3 mg by mouth one time a day for GOUT 2024 - Gabapentin Oral Capsule active 100 mg Oral two times a day Titrati on Give 100 mg by mouth two times a day for pain for 3 Days THEN Give 100 mg by mouth one time a day for pain for 3 Days 03/31 100 mg Oral one time a day Titrati on Give 100 mg by mouth two times a day for pain for 3 Days THEN Give 100 mg by mouth one time a day for pain for 3 Days 04/04 Problems Problem # Description Date of onset Resolved Date Code CodeSystem Concern Status 1 ANXIETY DISORDER, UNSPECIFIED 03/21/[id number] active 2 ACUTE PERICARDITIS, UNSPECIFIED 03/19/[address] active 3 ANEMIA, UNSPECIFIED 03/19/[address] active 4 CHRONIC OBSTRUCTIVE PULMONARY DISEASE, UNSPECIFIED 03/19/[address] active 5 ENCOUNTER FOR SURGICAL AFTERCARE FOLLOWING SURGERY ON THE DIGESTIVE SYSTEM 03/19/[address] active 6 FISTULA OF VAGINA TO LARGE INTESTINE 03/19/[address] active 7 NON-ST ELEVATION (NSTEMI) MYOCARDIAL INFARCTION 03/19/[address] active 8 OTHER CHRONIC PAIN 03/19/[address] active 9 OTHER CHRONIC PANCREATITIS 03/19/[address] active 10 OTHER INSOMNIA 03/19/[address] ac tive 11 OTHER PERICARDIAL EFFUSION (NONINFLAMMATORY) 03/19/[address] active 12 PERITONEAL ABSCESS 03/19/[address] active 13 TAKOTSUBO SYNDROME 03/19/2025 029620710 SNOMED C T active 14 UNSPECIFIED ATRIAL FIBRILLATION 03/19/[address] active 15 UNSPECIFIED CIRRHOSIS OF LIVER 03/19/[address] active 16 UNSPECIFIED PROTEIN-CALORIE MALNUTRITION 03/19/[address] active Reason for Referral No Reasons for Referral Entered Social History Social History Observation Description Start Date End Date Code Code System Current Smoking Status Tobacco smoking consumption unknown 310208427 SNOMED CT Sex Assigned At Female 1960 92625-2 [facility] Gender Identity Vital Signs Code Code System Vitals Name Values and Units Timing Information 9279-1 [facility] Respiratory Rate Value=18.0 Units=/m in 03/29/2025 75269-9 [facility] O2 % BldC Oximetry Value=93.0 Units= % 03/29/2025 83325-2 [facility] Pain Level Value=0.0 03/29/2025 8462-4 [facility] Blood Pressure-Diastolic Value=62 Un its=mmHg 03/28/2025 8480-6 [facility] Blood Pressure-Systolic Lvawi=097 Un its=mmHg 03/28/2025 8310-5 [facility] Body Temperature Value=98.6 Units= F 03/28/2025 8867-4 [facility] Heart rate Value=98.0 Units=/min 8302-2 [facility] Height Value=62.0 Units=Inches 03/24/2025 81611-7 [facility] Weight Vkeus=220.0 Units=Lbs
--- OUTSIDE RECORDS SUMMARY | 2025-03-30 14:24 | XMS_ITS | Data Portability ---
Author Organization [facility], [facility] Address [address] [place] [address] Care Team Providers Care Paster Hat Lining Name Role Phone SERGE CHAVIS Primary Care [...] Organization Details Recorded Time Osteoarthritis of knee [id number] Active 2023 Abdirahman Kimbrough PA-C [address] [facility], [place], [address], [facility]3] [facility] 4 07:06:53 Problem Notes None recorded. Procedures Surgical History Date Name Laterality Status Provider Name and Address Organization Details Recorded Time 5 Knee Kenalog 40 1cc Injection, Bilateral completed Abdirahman Kimbrough PA-C [address] [facility], [place], [address], [facility]3] [facility] 10/21/2024 08:15:18 4 Knee Kenalog 40 1cc Injection, Bilateral completed Abdirahman Kimbrough PA-C [address], [place], [address], [facility]3] [facility] 07/22/2024 07:59:12 4 Knee Kenalog 40 1cc Injection, Bilateral completed Abdirahman Kimbrough PA-C [address], [place], [address], [facility]3] [facility] 04/23/2024 05:33:06 4 Knee Kenalog 40 1cc Injection, Bilateral completed Abdirahman Kimbrough PA-C [address], [place], [address], [facility] 01/15/2024 07:07:11 Imaging Results None recorded. Procedure Notes None recorded. Medical Equipment None Reported. Allergies Allergen ID Allergen Name Allergen Category Reaction Reaction Severity Criticality Documentation Date Start Date Code Code System Note Provider Name and Address Organization Details Recorded Time 94706 Non-stero idal anti-infl ammatory agent (substanc e) medicatio n Not available Not available Not available 11/06/20232022 28380 5008 SNOMED Not Available [facility] 4 13:16:37 49350 Augmentin medicatio n Not available Not available Not available 11/06/20232015 30030 2 RxNorm Not Available [facility] 4 13:16:37 28123 erythromy florentin medicatio n Not available Not available Not available 11/06/20232020 4053 RxNorm Not Available [facility] 4 13:16:37 20035 aspirin medicatio n Not available Not available Not available 11/06/20232015 1191 RxNorm Not Available [facility] 4 13:16:38 41604 Substance with sulfonami de structure and antibacte rial mechanism of action (substanc e) medicatio n Not available Not available Not available 11/06/20232015 91366 8003 SNOMED Not Available [facility] 4 13:16:38 Medications Name Sig Start [...] ONCE DIRECTED BY [facility] active Not Available Not Available No [...] Updated DateTime 10/21/2024 157.48 cm 32 kg/m2 84988.66 g Abdirahman Kimbrough PA-C [address] [facility], [place], [address], [facility] 10/21/2024 13:49:42 Date Recorded Body height Body mass index (BMI) Body weight Provider Name and Address Organization Details Last Updated DateTime 01/15/2024 157.48 cm 32 kg/m2 70969.66 g Abdirahman Kimbrough PA-C [address] [place] [address], [address], [facility] 01/15/2024 11:05:53 Date Recorded Body height Body mass index (BMI) Body weight Provider Name and Address Organization Details Last Updated DateTime 04/23/2024 157.48 cm 32 kg/m2 23151.66 g Abdirahman Kimbrough PA-C [address] [facility], [place], [address], [facility] 04/23/2024 11:16:23 Date Recorded Body height Body mass index (BMI) Body weight Provider Name and Address Organization Details Last Updated DateTime 07/22/2024 157.48 cm 32 kg/m2 93520.66 g Abdirahman Kimbrough PA-C [address] [place] [address], [phone], [facility] 07/22/2024 12:49:40 Social History None recorded. Functional Status None recorded. Mental Status None recorded. Family History Nothing Reported. Medical History Condition Response Gastrointestinal Disease Y Kidney/Bladder Problems Y Heart Attack ([place]) Y Gynecological HistoryNo gynecological history recorded. Obstetrics History GPAL:G 0 P 0 0 0 0 Past Encounters Encounter ID Performer Location Encounter Start Date Encounter Closed Date Diagnosis/Indication Diagnosis SNOMED-CT Code Diagnosis ICD10 Code Diagnosis Note [id number] Abdirahman Kimbrough PA-C [facility] [address] [place] [address] 01/15/2024 10:44:22 01/25/2024 13:44:56 Osteoarthritis of knee 419704701 M17.9 [id number] Abdirahman Kimbrough PA-C [facility] [address] [place] [address] 04/23/2024 10:57:15 05/10/2024 08:44:54 Osteoarthritis of knee 561663261 M17.9 [id number] Abdirahman Kimbrough PA-C [facility] [address] [place] [address] 07/22/2024 12:38:38 08/08/2024 15:29:32 Osteoarthritis of knee 145783943 M17.9 [id number] Abdirahman Kimbrough PA-C [facility] [address] [place] [address] 10/21/2024 13:25:27 11/06/2024 11:52:24 Osteoarthritis of knee 581640661 M17.9 Health Concerns Section Related Observation LastModified by Organization Detai ls LastModified Time None Recorded Concern Status LastModified by Organization Details LastModified Time None Recorded Advance Directives Directive None Recorded Payers Insurance Date Sequence Insurance Name Policy Number Policy Mendoza Covered Member ID Mendoza Member ID Guarantor Name 04/23/2024 1 [employer] [facility] [id number] Kia Anaid Phelps [id number] Kia Phelps 02/04/2025 1 [employer] (MEDICARE REPLACEMENT /ADVANTAGE - PPO) [id number] Kia A Lenin [id number] Kia Lenin Notes Date Note Type Note Provider Name [...] and oriented x3. 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 No spasticity or clonus noted.Extremities: Calves are soft and nontender. Skin on lower extremities is intact. Palpable pedal pulses bilaterally. Orthopedic Exam:Bilateral knees Restricted range of motion good anterior-posterior stability no laxity valgus or varus stressing. Exquisite medial joint line tenderness with patellofemoral crepitance noted, 1+ effusion, 4/5 strength. X-rays report: 4 views ordered and independently reviewed at [facility] of the taken previously show advanced [...] currently attending cardiac rehabilitation. Abdirahman Kimbrough PA-C [address] [place] [address] [address], [place], [address], [facility] 01/15/2024 11:25:26 04/23/2024 text/html I am seeing [...] and oriented x3. 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 No spasticity or clonus noted.Extremities: Calves are soft and nontender. Skin on lower extremities is intact. Palpable pedal pulses bilaterally. Orthopedic Exam:Bilateral knees Restricted range of motion good anterior-posterior stability no laxity valgus or varus stressing. Exquisite medial joint line tenderness with patellofemoral crepitance noted, 1+ effusion, 4/5 strength. X-rays report: 4 views ordered and independently reviewed at [facility] of the taken previously show advanced [...] currently attending cardiac rehabilitation. Abdirahman Kimbrough PA-C [address] [place] [address] [address], [place], [address], [facility] 04/23/2024 11:34:22 07/22/2024 text/html [...] is scheduled to see a specialist at [place] in [place] going to require her to have probably another operation for her colostomy and therefore likely going to delay her knee arthroplasty until sometime in the late spring. PMH/PSH/MEDS/ALL/FMH /SOC HX/ ROS: All reviewed in detail per my medical intake sheetGeneral Exam: Vitals signs as noted below, antalgic gait noted.Mental Status: Alert and oriented x3. 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 No spasticity or clonus noted.Extremities: Calves are soft and nontender. Skin on lower extremities is intact. Palpable pedal pulses bilaterally.Orthoped ic Exam:Bilateral knees Restricted range of motion good anterior-posterior stability no laxity valgus or varus stressing. Exquisite medial joint line tenderness with patellofemoral crepitance noted, 1+ effusion, 4/5 strength. X-rays report: 4 views ordered and independently reviewed at [facility] of the taken previously show advanced [...] currently attending cardiac rehabilitation. Abdirahman Kimbrough PA-C [address] [place] [address] [address], [place], [address], [facility] 07/22/2024 13:07:57 10/21/2024 text/html I am seeing [...] is scheduled to see a specialist at [place] in going to require her to have [...] 4 views ordered and independently reviewed at [facility] of the taken previously show advanced [...] currently attending cardiac rehabilitation. Abdirahman Kimbrough PA-C [address], [place], [address], [place] [facility] [place] [facility] 10/21/2024 14:54:05 OBGyn Episode No OBEpisode recorded.
--- NOTE | 2025-03-30 14:25 | PC.NURSE ---
Fluids hung per MAR- ultrasound IV line in L upper bicep infiltrated and removed. Mareg WING at bedside
[2025-03-30] MEDS: cefEPime HCl/D5W 2 GM/50 ML PIGGYBACK IV (14:42)
--- NOTE | 2025-03-30 14:46 | ED.GENADULT ---
HPI - General Adult General Chief complaint: General Medical Stated complaint: LOW BP 88/62,BACK/ABD PAIN,RECENT ABD SURG PER EMS Time Seen by Provider: 03/30/25 13:44 Source: patient, EMS and old records reviewed Mode of arrival: EMS Limitations: no limitations History of Present Illness ED Provider: JAKY OJEDA narrative: 65 yo female with PMH of HTN, HLD, CAD, CHF, aflutter on eliquis, IBS, pancreatitis, s/p subtotal colectomy/hernia repair at [facility] [place] of [place] - s/p procedure had return [place] [facility]m edema, pericarditis/effusion, anemia, intraabdominal abscess and bacteremia s/p IV abx therapy with transfer to [facility] [place] and sent home - she returned here again with abdominal pain and concern for cholecystitis (but neg HIDA scan) pancreatitis/lyte abnormality 02/19 to 02/27/25 - she was discharged home. She returned again here 02/28 with discharge on 03/19 (anemia, embolization, pancreatitis) to [facility] for 1 week she just got home and has been drinking less/eating less and getting weaker. She still has her abodminal pain, still with vaginal bleeding but much less since her last admission she underwent recent sigmoidoscopy showing rectovaginal fistula and underwent uterine artery embolization for bleeding fibroid. She was started on a prednisone taper that ended a few days ago. She is back on her eliquis. She notes she feels terrible and weak, her mouth is dry and she states her tongue is sticking to roof of mouth. She denies CP/SOB. She denies worsening bleeding. She has no n/v. MD complaint: weakness, low BPs Onset (ago): day(s) (1) Location: abdomen Radiation: non-radiation Severity: moderate Quality: aching Pain Consistency: constant Relieving factors: none Exacerbating factors: movement Associated symptoms: loss of appetite and weakness Treatments prior to arrival: none Related Data Home Medications ?Medication ?Instructions ?Recorded ?Confirmed mirtazapine 15 mg tablet 15 mg PO BEDTIME 11/30/23 03/31/25 multivitamin with minerals-folic 1 tab PO DAILY 01/07/24 03/31/25 acid 200 mcg chewable tablet (Multivitamin Gummies) carisoprodol 350 mg tablet 350 mg PO BEDTIME 03/19/24 03/31/25 amiodarone 200 mg tablet 200 mg PO DAILY 02/19/25 03/31/25 apixaban 5 mg tablet (Eliquis) 5 mg PO BID 02/19/25 03/31/25 colchicine 0.6 mg tablet 0.6 mg PO DAILY 02/19/25 03/31/25 esomeprazole magnesium 20 mg 20 mg PO DAILY@0630 02/19/25 03/31/25 capsule,delayed release (Nexium) cyanocobalamin (vitamin B-12) 1,000 mcg PO DAILY 03/31/25 03/31/25 1,000 mcg tablet (Vitamin B-12) potassium chloride 20 mEq 20 meq PO BID 03/31/25 03/31/25 tablet,extended release Previous Rx's ?Medication ?Instructions ?Recorded carvedilol 6.25 mg tablet (Coreg) 6.25 mg PO BID 90 days #180 tabs 10/17/24 atorvastatin 20 mg tablet 20 mg PO BEDTIME #90 tabs 11/04/24 hydromorphone 2 mg tablet 1 - 2 mg (0.5 - 1 x 2 mg) PO Q8H 03/19/25 PRN pain #20 tabs [id number] 3 cap PO TIDWM #270 caps 03/19/25 12,000-38,000-60,000 unit capsule,delayed rel (Creon) magnesium oxide 400 mg (241.3 mg 800 mg (2 x 400 mg (241.3 mg 03/19/25 magnesium) tablet magnesium)) PO DAILY #60 tabs Allergies Allergy/AdvReac Type Severity Reaction Status Date / Time clams Allergy Severe Stomach Verified 03/30/25 14:01 Upset clavulanic acid (Augmentin) Allergy Unknown GI, Verified 03/30/25 14:01 Difficulty breathing codeine (CODEINE) Allergy Unknown SENSITIVIT Verified 03/30/25 14:01 Y erythromycin base Allergy Unknown GI, DIFF Verified 03/30/25 14:01 (Erythromycin Base) BREATHING Sulfa (Sulfonamide Allergy Unknown RASH Verified 03/30/25 14:01 Antibiotics) morphine (MORPHINE) AdvReac Severe Difficulty Verified 03/30/25 14:01 Breathing aspirin (Aspirin) AdvReac Mild STOMACH Verified 03/30/25 14:01 UPSET melatonin AdvReac Vomiting Verified 03/30/25 14:01 Review of Systems Review of Systems: Constitutional : No Fever, No Chills, No Fatigue ENT/Mouth : No sore throat, No Rhinorrhea Eyes: No Eye Pain, No Swelling, No Redness Cardiovascular : No Chest Pain, No SOB, No Dyspnea on Exertion Respiratory : No Cough, No Sputum Gastrointestinal : No Nausea, No Vomiting, No Diarrhea, pos abdominal Pain Genitourinary : No Dysuria, No Urinary Frequency, No Hematuria, Musculoskeletal : No joint pain, No Myalgias, No Joint Swelling Skin : No Skin Lesions, No rash Neuro : pos Weakness, No Numbness, pos Dizziness, no Headache All other systems reviewed and are negative [facility] Past Medical History Attestation statement: The following information was validated with the patient. Source: old records reviewed Medical History Pancreatitis Insomnia Bilateral knee pain Polyarthralgia MARKIE (acute kidney injury) Back pain Arthritis History of transfusion of packed red blood cells Anemia Cardiomyopathy MARKIE (acute kidney injury) MARKIE (acute kidney injury) Anxiety Small bowel obstruction Myocardial infarction NSTEMI (non-ST elevated myocardial infarction) NSVT (nonsustained ventricular tachycardia) PVC (premature ventricular contraction) Hypertension Perforated diverticulum Irritable bowel syndrome with constipation Barretts esophagus GERD (gastroesophageal reflux disease) Surgical History S/P colon resection PIC line (peripherally inserted central catheter) removal History of low anterior resection of rectum Status post cardiac catheterization Ileostomy in place H/O dilation and curettage History of exploratory laparotomy (05/11/23) S/P colostomy Colovesical fistula History of esophagogastroduodenoscopy (EGD) Hx of colonoscopy Family History Family History Father Colon cancer Congestive heart failure Paternal Aunt Colon cancer Mother Congestive heart failure Afib Social History Social History Household Members: None Housing: House Are you a primary health care technician to a significant other at home: No Do you presently have visiting nurse or other home services: Yes Alcohol intake: never Comment: located near nursing station Patient Tobacco Use Status: Former Tobacco user Tobacco use type: Cigarette Cigarette Packs Per Day: 0.5 Cigarettes Per Day: 10.0 Years Smoked: 25 Smoked in Last 30 Days: No e-Cigarette/Vaping Use: Former Use Second Hand Smoke Exposure: No Use of substances other than those prescribed or required for medical reasons: No Substance Use Type: Marijuana Currently Displaying Signs/Symptoms of Drug Intoxication Withdrawal: No Have you been hit, kicked, punched, or otherwise hurt by someone within the past year? If so, by whom?: No Do you feel safe in your current relationship?: No Current Relationship Is there a partner from a previous relationship who is making you feel unsafe now?: No Are you made to feel afraid or neglected: No Advance Directives: Yes Advance Directives on File: Yes Advance Directives Date on File: 12/29/23 Do you have a plan to hurt others: No Plan Recently lost weight without trying: Yes How much weight loss: 24-33 pounds Eating poorly because of decreased appetite: Yes Nutrition screen score: 6 Nutrition Risks: Acute nausea or vomiting x1 week and Poor intake 0-25% >4 days Patient : No service: No Cognitive needs: No Hearing needs: No Vision needs: Yes Physical Exam ED Vital Signs: Vital Signs - 24 hr 03/30/25 13:59 03/30/25 14:54 03/30/25 15:01 Temperature 97.7 F 97.7 F Pulse Rate 93 83 82 Respiratory Rate 17 18 16 Blood Pressure 79/56 L 87/39 L 84/41 L Pulse Oximetry 98 96 93 Oxygen Delivery Method Room Air Room Air Room Air 03/30/25 15:10 03/30/25 15:20 03/30/25 15:30 Temperature Pulse Rate 83 80 80 Respiratory Rate 16 16 18 Blood Pressure 84/39 L 73/41 L 84/41 L Pulse Oximetry 96 98 96 Oxygen Delivery Method Room Air Room Air Room Air 03/30/25 15:40 03/30/25 15:50 03/30/25 16:01 Temperature Pulse Rate 83 82 61 Respiratory Rate 18 16 16 Blood Pressure 80/41 L 76/39 L 78/32 L Pulse Oximetry 96 96 96 Oxygen Delivery Method Room Air Room Air Room Air 03/30/25 16:24 03/30/25 16:24 03/30/25 16:30 Temperature Pulse Rate 79 79 79 Respiratory Rate 16 18 18 Blood Pressure 76/34 L 76/34 L 81/48 L Pulse Oximetry 96 96 96 Oxygen Delivery Method Room Air Room Air Room Air 03/30/25 16:34 03/30/25 16:40 03/30/25 16:50 Temperature 98.6 F Pulse Rate 78 78 77 Respiratory Rate 11 L 18 16 Blood Pressure 81/48 L 85/44 L 95/49 L Pulse Oximetry 96 97 96 Oxygen Delivery Method Room Air Room Air Room Air 03/30/25 17:00 03/30/25 17:10 03/30/25 17:10 Temperature Pulse Rate 81 81 81 Respiratory Rate 16 16 Blood Pressure 93/39 L 86/49 L 86/49 L Pulse Oximetry 96 96 Oxygen Delivery Method Room Air Room Air 03/30/25 17:20 03/30/25 17:30 03/30/25 17:35 Temperature Pulse Rate 80 84 82 Respiratory Rate 16 16 Blood Pressure 96/58 L 89/54 L 91/54 L Pulse Oximetry 96 96 Oxygen Delivery Method Room Air Room Air 03/30/25 17:35 03/30/25 17:53 03/30/25 18:00 Temperature Pulse Rate 82 78 75 Respiratory Rate 16 16 16 Blood Pressure 91/54 L 103/55 L 99/55 L Pulse Oximetry 96 96 96 Oxygen Delivery Method Room Air Room Air Room Air 03/30/25 18:05 03/30/25 18:10 03/30/25 18:10 Temperature Pulse Rate 74 74 74 Respiratory Rate 16 16 Blood Pressure 97/52 L 90/52 L 90/52 L Pulse Oximetry 96 96 Oxygen Delivery Method Room Air Room Air 03/30/25 18:12 03/30/25 18:15 03/30/25 18:15 Temperature 98.2 F Pulse Rate 74 71 71 Respiratory Rate 11 L 16 Blood Pressure 90/52 L 95/52 L 95/52 L Pulse Oximetry 97 96 Oxygen Delivery Method Room Air Room Air 03/30/25 18:20 03/30/25 18:20 03/30/25 18:25 Temperature Pulse Rate 73 73 73 Respiratory Rate 18 18 Blood Pressure 84/50 L 84/50 L 92/52 L Pulse Oximetry 96 96 Oxygen Delivery Method Room Air 03/30/25 18:30 03/30/25 19:00 03/30/25 19:35 Temperature Pulse Rate 72 70 73 Respiratory Rate 16 Blood Pressure 97/55 L 93/53 L 93/51 L Pulse Oximetry 95 Oxygen Delivery Method Room Air BMI result Body Mass Index 19.8 Appearance: Alert. Oriented X3. Mild acute distress. Eyes: Pupils equal, round and reactive to light. ENT: Pharynx very dry MM Neck: Normal inspection. Neck supple. CVS: Normal heart rate and rhythm. Pulses normal. Respiratory: No respiratory distress. Breath sounds normal. Abdomen: Soft and mild upper diffuse ttp no rebound or guarding Skin: Skin warm and dry. Normal skin color. Extremities: No lower extremity edema. Neuro: Oriented X 3. No motor deficit. No sensory deficit. CN2-12 intact Course Course Course Narrative: 335pm some improvement in BP but given she is still on prednisone I am going to add on stress dose hydrocortisone and albumin as well given her poor protein intake Reevaluation(s) Reevaluation #1: levophed started still hypotensive with fluids and albumin - concern for overcorrection of hyponatremia but still hypotensive Reevaluation #2: focused exam for sepsis performed at 03/30/25 at 549pm ICU team is aware but she should have CT abdominal imaging Reevaluation #3: verbal consent for central lines obtained prior to procedure - patient had significant anxiety Medications Administered Generic Name Dose Route Start Last Admin Trade Name Freq PRN Reason Stop Dose Admin Heparin Sodium (Porcine) 5,000 unit 03/30/25 20:00 03/31/25 03:24 Heparin Sodium,Porcine 5,000 Unit/Ml Vial SUBCUT 5,000 unit Q8H ARISTIDES Administration Hydromorphone HCl 0.5 mg 03/31/25 01:54 03/31/25 06:47 Hydromorphone Hcl 0.5 Mg/0.5 Ml Syringe IVPUSH 0.5 mg Q4H PRN Administration Pain, Severe (Pain Scale 7-10) Protocol Lactated Ringer's 1,000 mls @ 80 mls/hr 03/30/25 16:45 03/31/25 00:33 Lr IVCONT Infused On Hold: 03/31/25 00:34 .[id number] ARISTIDES Infusion Norepinephrine Bitartrate 8 mg in 250 mls @ 0 mls/hr 03/30/25 17:15 03/31/25 08:53 Levophed IVCONT 0.17 mcg/kg/min .Q0M ARISTIDES 17.75 mls/hr Protocol Titration Per Protocol Albumin Human 100 mls @ 100 mls/hr 03/30/25 21:00 03/31/25 08:09 Kedbumin 25 % IV 03/31/25 15:59 100 mls/hr Q6H ARISTIDES Administration Potassium Chloride 40 meq in 100 mls @ 50 mls/hr 03/31/25 08:00 03/31/25 08:09 Potassium Chloride/H20 IV 03/31/25 09:59 50 mls/hr ONCE ONE Administration Discontinued Medications Generic Name Dose Route Start Last Admin Trade Name Terri PRN Reason Stop Dose Admin Hydrocortisone Sodium Succinate 100 mg 03/30/25 15:32 03/30/25 17:32 Hydrocortisone Sod Succ/Pf 100 Mg Vial IVPUSH 03/30/25 15:33 100 mg ONCE ONE Administration Lactated Ringer's 1,671 mls @ 1,671 mls/hr 03/30/25 14:11 03/30/25 17:30 Lr 30 ml/kg infuse over 1 hr (1671 ml) 03/30/25 15:10 Infused IV Infusion .Q1H ONE Cefepime HCl 2 gm in 50 mls @ 100 mls/hr 03/30/25 14:13 03/30/25 15:15 Maxipime IV 03/30/25 14:42 Infused ONCE ONE Infusion Albumin Human 100 mls @ 133.333 mls/hr 03/30/25 15:45 03/30/25 19:06 Kedbumin 25 % IV 03/30/25 17:29 Infused Q1H ARISTIDES Infusion Magnesium Sulfate 2 gm in 50 mls @ 25 mls/hr 03/30/25 16:22 03/30/25 22:17 Magnesium Sulfate/H2o IV 03/30/25 18:21 Infused ONCE ONE Infusion Piperacillin Sod/Tazobactam 100 mls @ 200 mls/hr 03/30/25 20:00 03/31/25 04:00 Sod 4.5 gm/ Sodium Chloride IV Infused Q8H ARISTIDES Infusion Magnesium Sulfate 2 gm in 50 mls @ 25 mls/hr 03/30/25 20:03 03/30/25 23:13 Magnesium Sulfate/H2o IV 03/30/25 22:02 Infused ONCE ONE Infusion Ondansetron HCl 4 mg 03/31/25 02:16 03/31/25 02:22 Ondansetron Hcl 4 Mg/2 Ml Vial IVPUSH 03/31/25 02:17 4 mg ONCE ONE Administration Procedures Central Line Placement Right IJ: Time Out Performed: Yes Patient Placed on Monitor/Pulse Ox: Yes MD Prep: mask, gown and gloves Central Line Prep: Chlorhexidine scrub Local Anesthetic: lidocaine 1% Amount of anesthesia used (mL): 5 Ultrasound Used for Placement: Yes Central Line Lumen Inserted: triple Post Procedure: sutured in place, good blood return, all ports aspirated, flushed, capped and sterile dressing applied Post Procedure X-Ray: tip of catheter in good position and no pneumothorax seen Patient Tolerated Procedure: well and no complications Complications: none Additional Comments: US guided Medical Decision Making Medical Decision Making MDM Narrative: 65 yo female with PMH of HTN, HLD, CAD, CHF, aflutter on eliquis, IBS, pancreatitis, s/p subtotal colectomy/hernia repair at [facility] [place] in January of [place] she has a complicated medical history since January including pancreatitis, intra abdominal abscess, bacteremia, pericardial effusion, rectovaginal fistula, uterine artery embolization for bleeding fibroid, hypoK and hypoMag - she has been on a prednisone taper since [place] [facility] she comes in with fatigue, not feeling well, low BPs but no sig bleeding, no fevers, no sig change in her abdominal pain - at this time no CP/SOB to suggest VTE and she is taking her eliquis. She will get IVF 30cc/kg bolus - last EF 60-65%, bedside ECHO small effusion but no tamponade, empiric abx, CT scan of abdomen. If no response to fluids will stress dose steroids and start on albumin as well. She could have MARKIE, lyte abnormality, anemia, new infection, pericardial effusion, adrenal insuffiency I received sign-out from my colleague Dr. Vickers CT scan shows cholelithiasis versus gallbladder sludge versus superimposed acute cholecystitis. Patient does not have right upper quadrant or epigastric pain, mostly complaining of lower abdominal pain. I discussed the patient with Dr. Dorantes. They will follow-up in the morning. At this time, no surgical intervention needed I updated Dr. Davidson from the ICU, patient admitted to the ICU Differential Diagnosis Differential Diagnoses: The differential diagnosis associated with the presentation includes anemia, MARKIE, lyte abnormality, bacteremia, UTI, pericardial effusion, intra abd fluid collection Admission/Observation Consideration of admission/observation: Escalation of care including admission/observation considered needs admission for further work up Consult Healthcare Provider Management of the patient was discussed with: Associate Publisher (ICU aware will admit) Lab Data [facility] Lab Attestation statement: I reviewed the patient's lab results. 03/31/25 05:24 03/31/25 05:32 Labs: Lab Results 03/30/25 03/30/25 03/30/25 Range/Units 14:34 14:45 15:53 WBC 21.0 H (4.8-10.8) X10*3/uL RBC 3.91 L (4.20-5.50) X10*6/uL Hgb 11.4 L (12.0-16.0) g/dl Hct 33.0 L (37.0-47.0) % MCV 84.4 (80.0-98.0) fL MCH 29.2 (27.0-33.0) pg MCHC 34.5 (31.0-35.0) g/dl RDW 14.6 (11.0-16.0) % Plt Count 240 (160-400) X10*3/uL MPV 10.3 (9.4-12.3) fL Immature Gran % (Auto) 0.7 H (0.0-0.4) % Neut % (Auto) 84.1 H (45-73) % Lymph % (Auto) 6.7 L (20-40) % Calhoun % (Auto) 7.7 (2-11) % Eos % (Auto) 0.5 (0-4) % Baso % (Auto) 0.3 (0-2) % Lymph # (Auto) 1.4 (1.2-4.9) X10*3/uL Calhoun # (Auto) 1.6 H (0.1-1.2) X10*3/uL Eos # (Auto) 0.1 (0.0-0.4) X10*3/uL Baso # (Auto) 0.1 (0.0-0.2) X10*3/uL Abs Immat Gran (auto) 0.14 H (0.00-0.03) X10*3/uL Absolute Neuts (auto) 17.7 H (2.0-8.3) x10*3/uL Absolute Nucleated RBC 0.000 (0.0-0.012) X10*3/uL Nucleated RBC % (auto) 0.0 (0.0-0.2) /100WBC Smear Tech's Comments VERIFIED VBG pH 7.49 H (7.32-7.43) VBG pCO2 30 mmHg VBG pO2 50 mmHg VBG HCO3 23 (22-26) mmol/L VBG O2 Saturation 82.0 % VBG Base Excess 1.3 mmol/L Sodium 123 L (135-145) mmol/L Potassium 4.7 D (3.3-5.1) mmol/L Chloride 88 L (96-108) mmol/L Carbon Dioxide 18 L (22-29) mmol/L Anion Gap 22 H (12-20) BUN 57 H (9-16) mg/dL Creatinine 3.86 H (0.5-1.4) mg/dL Estim Creat Clear Calc 12.6 Estimated GFR 12 Random Glucose 91 (60-115) mg/dL Lactic Acid 1.5 (0.5-2.0) mmol/L Calcium 8.0 L (8.4-10.2) mg/dL Phosphorus (2.7-4.5) mg/dL Magnesium 1.2 L* (1.6-2.6) mg/dL Total Bilirubin 0.6 (0.0-1.0) mg/dL Direct Bilirubin 0.4 (0.0-0.5) mg/dL AST 35 H (5-31) U/L ALT 47 H (0-31) U/L Alkaline Phosphatase 230 H (39-117) U/L Troponin I High Sens 6.6 D (<3.5-17.0) ng/L C-Reactive Protein 15.00 H (< or = 0.50) mg/dL B-Natriuretic Peptide 65 (<100) pg/mL Total Protein 7.6 (6.5-8.0) g/dL Albumin 3.2 L (3.5-5.0) g/dL Lipase 102 H (8-78) U/L Procalcitonin 1.04 ng/mL TSH (0.32-4.0) uIU/mL Influenza Type A (PCR) NEGATIVE (Negative) Influenza Type B (PCR) NEGATIVE (Negative) RSV RNA Qual (PCR) NEGATIVE (Negative) SARS-CoV-2 RNA (RT-PCR) NEGATIVE (Negative) Blood Type O Positive Antibody Screen NEGATIVE 03/30/25 Range/Units 18:01 WBC (4.8-10.8) X10*3/uL RBC (4.20-5.50) X10*6/uL Hgb (12.0-16.0) g/dl Hct (37.0-47.0) % MCV (80.0-98.0) fL MCH (27.0-33.0) pg MCHC (31.0-35.0) g/dl RDW (11.0-16.0) % Plt Count (160-400) X10*3/uL MPV (9.4-12.3) fL Immature Gran % (Auto) (0.0-0.4) % Neut % (Auto) (45-73) % Lymph % (Auto) (20-40) % Calhoun % (Auto) (2-11) % Eos % (Auto) (0-4) % Baso % (Auto) (0-2) % Lymph # (Auto) (1.2-4.9) X10*3/uL Calhoun # (Auto) (0.1-1.2) X10*3/uL Eos # (Auto) (0.0-0.4) X10*3/uL Baso # (Auto) (0.0-0.2) X10*3/uL Abs Immat Gran (auto) (0.00-0.03) X10*3/uL Absolute Neuts (auto) (2.0-8.3) x10*3/uL Absolute Nucleated RBC (0.0-0.012) X10*3/uL Nucleated RBC % (auto) (0.0-0.2) /100WBC Smear Tech's Comments VBG pH (7.32-7.43) VBG pCO2 mmHg VBG pO2 mmHg VBG HCO3 (22-26) mmol/L VBG O2 Saturation % VBG Base Excess mmol/L Sodium 124 L (135-145) mmol/L Potassium 4.3 (3.3-5.1) mmol/L Chloride 86 L (96-108) mmol/L Carbon Dioxide 21 L (22-29) mmol/L Anion Gap 21 H (12-20) BUN 56 H (9-16) mg/dL Creatinine 3.65 H (0.5-1.4) mg/dL Estim Creat Clear Calc 13.3 Estimated GFR 12 Random Glucose 89 (60-115) mg/dL Lactic Acid (0.5-2.0) mmol/L Calcium 7.8 L (8.4-10.2) mg/dL Phosphorus 4.4 (2.7-4.5) mg/dL Magnesium 1.1 L* (1.6-2.6) mg/dL Total Bilirubin (0.0-1.0) mg/dL Direct Bilirubin (0.0-0.5) mg/dL AST (5-31) U/L ALT (0-31) U/L Alkaline Phosphatase (39-117) U/L Troponin I High Sens 6.5 (<3.5-17.0) ng/L C-Reactive Protein (< or = 0.50) mg/dL B-Natriuretic Peptide (<100) pg/mL Total Protein (6.5-8.0) g/dL Albumin (3.5-5.0) g/dL Lipase (8-78) U/L Procalcitonin ng/mL TSH 0.62 (0.32-4.0) uIU/mL Influenza Type A (PCR) (Negative) Influenza Type B (PCR) (Negative) RSV RNA Qual (PCR) (Negative) SARS-CoV-2 RNA (RT-PCR) (Negative) Blood Type Antibody Screen Independent Interpretation I performed an independent interpretation of an: EKG, Plain X-Ray (normal ) and CT Scan (abnormal CT scan findings) Interpretation: Rate: 90 Rhythm: NSR [place]: normal Normal P waves. Normal AMADA. Normal QRS complex. ST T wave : no MANOJ, T wave inversions V2-V6, II, III, aVF - hx of same but more pronounced today qTC: 474 prior studies: more prounounced t wave changes The study has been interpreted contemporaneously by me. Radiology Impression Discussion of test interpretation with radiology: I have reviewed the radiologist's reading. Independent Historian Clinical information obtained from an independent historian. History obtained from or confirmed by: EMS External Record Review External record reviewed: Inpatient record, Outpatient record, Prior outpatient labs and Prior outpatient radiology Critical Care Time Critical Care Time Critical Care Time: Yes Total Critical Care Time: 90 Attestation: Time is exclusive of separately billable procedures. Time includes: direct patient care, patient reassessment, coordination of patient care, interpretation of data (laboratory data, pulse oximetry, arterial blood gases and chest xrays), review of patient's medical records, medical consultation and documentation of patient care. Procedures excluded from critical care time: central intravenous line placement and electrocardiography. I attest to this time spent taking care of the patient Discharge Plan Discharge Clinical Impression: MARKIE (acute kidney injury), Acute hypotension, Hypomagnesemia, Acute hyponatremia Elevated WBC count Qualifiers: Leukocytosis type: unspecified Qualified Code(s): D72.829 - Elevated white blood cell count, unspecified Abdominal pain Qualifiers: Abdominal location: generalized Qualified Code(s): R10.84 - Generalized abdominal pain Patient Disposition: Admitted As Inpatient Discharge Date/Time: 03/30/25 20:06
[2025-03-30 14:50] LABS: VBG HCO3 23 mmol/L (22-26); VBG O2 % Saturation 82.0 %
[2025-03-30 14:53] LABS: Hematocrit 33.0 % (37.0-47.0); Hemoglobin 11.4 g/dl (12.0-16.0); Imm Gran Abs Auto 0.14 X10*3/uL (0.00-0.03); Imm Gran Pct Auto 0.7 % (0.0-0.4); Lymphocytes Absolute Auto 1.4 X10*3/uL (1.2-4.9); MANUAL DIFF FLAG SCAN; Mean Corpuscular HGB Conc 34.5 g/dl (31.0-35.0); Mean Corpuscular Hemoglobin 29.2 pg (27.0-33.0); Mean Corpuscular Volume 84.4 fL (80.0-98.0); NRBC Abs Auto 0.000 X10*3/uL (0.0-0.012); NRBC Pct Auto 0.0 /100WBC (0.0-0.2); Platelet Count 240 X10*3/uL (160-400); Red Blood Count 3.91 X10*6/uL (4.20-5.50); SCAN SMEAR FLAG 1; White Blood Count 21.0 X10*3/uL (4.8-10.8)
[2025-03-30 14:55] LABS: Venous Blood Gas Refer to POC result
[2025-03-30] MEDS: LACTATED RINGERS 1671 ML IV (14:56)
[2025-03-30 15:16] LABS: B Type Natriuretic Peptide 65 pg/mL (<100)
[2025-03-30 15:49] LABS: Resp Syncy Virus RNA Qual PCR NEGATIVE (Negative); SARS COV2 PCR INHOUSE NEGATIVE (Negative)
--- NOTE | 2025-03-30 16:18 | PC.NURSE ---
Pt ultrasound IV in R upper Bicep infiltrated- MD Vickers aware. Pt BP remains low on monitor- BPs cycling q10 min to monitor. Pt a/ox3, respirations even and unlabored, appears in no distress. IV medications late d/t no IV access.
[2025-03-30 16:21] LABS: Troponin-I High Sensitivity 6.6 ng/L (<3.5-17.0)
[2025-03-30 16:22] LABS: Alanine Aminotransferase 47 U/L (0-31); Albumin Level 3.2 g/dL (3.5-5.0); Alkaline Phosphatase 230 U/L (39-117); Anion Gap 22 (12-20); Aspartate Amino Transferase 35 U/L (5-31); Blood Urea Nitrogen 57 mg/dL (9-16); Calcium 8.0 mg/dL (8.4-10.2); Carbon Dioxide 18 mmol/L (22-29); Chloride 88 mmol/L (96-108); Creatinine Clr Calc Pharmacy 12.6; Estimated Glomerular Filt Rate 12; Lipase 102 U/L (8-78); Magnesium 1.2 mg/dL (1.6-2.6); Potassium 4.7 mmol/L (3.3-5.1); Sodium 123 mmol/L (135-145); Total Protein 7.6 g/dL (6.5-8.0)
[2025-03-30 16:36] LABS: Procalcitonin 1.04 ng/mL
--- NOTE | 2025-03-30 17:08 | PC.NURSE ---
MD Vickers at bedside with this RN for central line placement. Pt tolerated procedure well. Xray at bedside to confirm placement.
[2025-03-30] MEDS: Albumin Human 25 % 100 ML 133.33 ML IV ×2 (17:25→18:20)
[2025-03-30] MEDS: Hydrocortisone Sod Succ/PF 100 MG VIAL IVPUSH (17:32)
--- NOTE | 2025-03-30 17:50 | ECG_ITS ---
Test Reason : repeat hypomagnesemia Blood Pressure : */* mmHG Vent. Rate : 76 BPM Atrial Rate : 76 BPM P-R Int : 162 ms QRS Dur : 74 ms QT Int : 426 ms P-R-T Axes : 86 19 -55 degrees QTcB Int : 479 ms Normal sinus rhythm ST & T wave abnormality, consider anterolateral ischemia Abnormal ECG When compared with ECG of 30-Mar-2025 14:10, No significant change was found Referred By: Daniela Vickers Electronically Signed By: SERGIO ISAACS MD
[2025-03-30 18:18] LABS: Anion Gap 21 (12-20); Blood Urea Nitrogen 56 mg/dL (9-16); Calcium 7.8 mg/dL (8.4-10.2); Carbon Dioxide 21 mmol/L (22-29); Chloride 86 mmol/L (96-108); Creatinine Clr Calc Pharmacy 13.3; Estimated Glomerular Filt Rate 12; Potassium 4.3 mmol/L (3.3-5.1); Sodium 124 mmol/L (135-145)
[2025-03-30] MEDS: Lactated Ringers 1,000 ML 80 ML IVCONT (18:20)
[2025-03-30] MEDS: Magnesium Sulfate/H2O 2 GM/50 ML PIGGYBACK IV ×2 (18:21→20:53)
[2025-03-30 18:26] LABS: Troponin-I High Sensitivity 6.5 ng/L (<3.5-17.0)
--- NOTE | 2025-03-30 19:48 | PM.CCHP ---
History of Present Illness Date of Service: 03/30/25 Attending physician on admission: Lucien East Chief Complaint: Abdominal pain 65-year-old female with past medical history of IBS s/p colectomy[place] [facility] [place] intra-abdominal abscess/[place] bacteremia (d[place] [facility] [place] and completed abx therapy), atrial flutter/ AFib? ( on Eliquis ),? pericardial effusion,? hypertension, hyperlipidemia, coronary artery disease and congestive heart failure. She had admission 02/28/2025 to 03/18/2025? for concern of cholecystitis,? HIDA was negative,? acute pancreatitis, anemia and rectovaginal fistula, s/p uterine artery embolization for bleeding fibroid,? was sent home on prednisone taper that ended few days ago and she is back on Eliquis.? ?Today she presented to the Emergency department via EMS due to hypotension and abdominal pain.? She reported generalized weakness, poor p.o. Intake, and? very dry mouth.? ?In the emergency department patient? afebrile but hypotensive to systolic of 70s,? with no response with? crystalloids, colloids and? stress dose corticosteroids.? ?Laboratory data was significant for WBC 21, serum sodium 123, chloride 86, serum bicarb 21, BUN 57, creatinine 3.86, magnesium 1.2, AST 35, ALT 47, alk phos 230, albumin 3.2, lipase 102.? IMAGING:? ABD/Pelvis CT scan:? shows cholelithiasis versus gallbladder sludge versus superimposed acute cholecystitis.? ED course: ?Patient received fluid resuscitation with 30 mL/kg of LR, colloid resuscitation with 200 mL of albumin, hydrocortisone 100 mg, and cefepime 2 mg.? Patient did not respond to fluid resuscitation requiring? initiation of vasopressor support.?? ED physician consulted General surgery, Dr. Dorantes, ? imaging reviewed, no surgical intervention at this time,? will follow-up with patient in the morning? Review of Systems Review of Systems: Yes all other systems are reviewed and are negative PMFSH Past Medical History Medical History Pancreatitis Insomnia Bilateral knee pain Polyarthralgia MARKIE (acute kidney injury) Back pain Arthritis History of transfusion of packed red blood cells Anemia Cardiomyopathy MARKIE (acute kidney injury) MARKIE (acute kidney injury) Anxiety Small bowel obstruction Myocardial infarction NSTEMI (non-ST elevated myocardial infarction) NSVT (nonsustained ventricular tachycardia) PVC (premature ventricular contraction) Hypertension Perforated diverticulum Irritable bowel syndrome with constipation Barretts esophagus GERD (gastroesophageal reflux disease) Family History Family History Father Colon cancer Congestive heart failure Paternal Aunt Colon cancer Mother Congestive heart failure Afib Surgical History Surgical History S/P colon resection PIC line (peripherally inserted central catheter) removal History of low anterior resection of rectum Status post cardiac catheterization Ileostomy in place H/O dilation and curettage History of exploratory laparotomy (05/11/23) S/P colostomy Colovesical fistula History of esophagogastroduodenoscopy (EGD) Hx of colonoscopy Social History Social History Household Members: None Housing: House Are you a primary manager critical care to a significant other at home: No Do you presently have visiting nurse or other home services: Yes Alcohol intake: never Comment: located near nursing station Patient Tobacco Use Status: Former Tobacco user Tobacco use type: Cigarette Cigarette Packs Per Day: 0.5 Cigarettes Per Day: 10.0 Years Smoked: 25 Smoked in Last 30 Days: No e-Cigarette/Vaping Use: Former Use Second Hand Smoke Exposure: No Use of substances other than those prescribed or required for medical reasons: No Substance Use Type: Marijuana Currently Displaying Signs/Symptoms of Drug Intoxication Withdrawal: No Have you been hit, kicked, punched, or otherwise hurt by someone within the past year? If so, by whom?: No Do you feel safe in your current relationship?: No Current Relationship Is there a partner from a previous relationship who is making you feel unsafe now?: No Are you made to feel afraid or neglected: No Advance Directives: Yes Advance Directives on File: Yes Advance Directives Date on File: 12/29/23 Do you have a plan to hurt others: No Plan Recently lost weight without trying: Yes How much weight loss: 24-33 pounds Eating poorly because of decreased appetite: Yes Nutrition screen score: 6 Nutrition Risks: Acute nausea or vomiting x1 week and Poor intake 0-25% >4 days Patient : No service: No Cognitive needs: No Hearing needs: No Vision needs: Yes Meds Allergies Allergy/AdvReac Type Severity Reaction Status Date / Time clams Allergy Severe Stomach Verified 03/30/25 14:01 Upset clavulanic acid (Augmentin) Allergy Unknown GI, Verified 03/30/25 14:01 Difficulty breathing codeine (CODEINE) Allergy Unknown SENSITIVIT Verified 03/30/25 14:01 Y erythromycin base Allergy Unknown GI, DIFF Verified 03/30/25 14:01 (Erythromycin Base) BREATHING Sulfa (Sulfonamide Allergy Unknown RASH Verified 03/30/25 14:01 Antibiotics) morphine (MORPHINE) AdvReac Severe Difficulty Verified 03/30/25 14:01 Breathing aspirin (Aspirin) AdvReac Mild STOMACH Verified 03/30/25 14:01 UPSET melatonin AdvReac Vomiting Verified 03/30/25 14:01 Active Medications: Current Medications Heparin Sodium (Porcine) (Heparin Sodium,Porcine 5,000 Unit/Ml Vial) 5,000 unit SUBCUT Q8H [facility] Lactated Ringer's (Lr) 1,000 mls @ 80 mls/hr IVCONT .[id number] [facility] Last Admin: 03/30/25 18:20 Dose: 80 mls/hr Norepinephrine Bitartrate (Levophed) 8 mg in 250 mls @ 0 mls/hr IVCONT .Q0M [facility]; Protocol Last Titration: 03/30/25 19:35 Dose: 0.17 mcg/kg/min, 17.75 mls/hr Piperacillin Sod/Tazobactam (Sod 4.5 gm/ Sodium Chloride) 100 mls @ 200 mls/hr IV Q8H [facility] Home Medications ?Medication ?Instructions ?Recorded ?Confirmed ?Last Taken ?Type mirtazapine 15 mg tablet 15 mg PO BEDTIME 11/30/23 03/31/25 03/30/25 History multivitamin with minerals-folic 1 tab PO DAILY 01/07/24 03/31/25 03/30/25 History acid 200 mcg chewable tablet (Multivitamin Gummies) carisoprodol 350 mg tablet 350 mg PO BEDTIME 03/19/24 03/31/25 03/30/25 History amiodarone 200 mg tablet 200 mg PO DAILY 02/19/25 03/31/25 03/30/25 History apixaban 5 mg tablet (Eliquis) 5 mg PO BID 02/19/25 03/31/25 03/30/25 History colchicine 0.6 mg tablet 0.6 mg PO DAILY 02/19/25 03/31/25 03/30/25 History esomeprazole magnesium 20 mg 20 mg PO DAILY@0630 02/19/25 03/31/25 03/30/25 History capsule,delayed release (Nexium) cyanocobalamin (vitamin B-12) 1,000 mcg PO DAILY 03/31/25 03/31/25 03/30/25 History 1,000 mcg tablet (Vitamin B-12) potassium chloride 20 mEq 20 meq PO BID 03/31/25 03/31/25 03/30/25 History tablet,extended release Physical Exam Vital Signs: Vital Signs: Last Vital Signs Temp 97.6 F 03/30/25 19:44 Pulse 71 03/30/25 19:44 Resp 9 L 03/30/25 19:44 BP 102/55 L 03/30/25 19:44 Pulse Ox 96 03/30/25 19:44 O2 Del Method Room Air 03/30/25 19:44 BMI result Body Mass Index 19.8 ?General:? Lethargic, but able to answer questions appropriately. ?HEENT:? Head is normocephalic, atraumatic, pupils equal round reactive to light accommodation bilaterally.? Extraocular movements appear intact.? Buccal mucosa is dry, Neck is supple ?Cardiac:? Sinus rhythm, Clear S1-S2, no murmurs rubs or gallops. ?Pulmonary:? Clear to auscultation, no wheezes, rales or rhonchi. ?Abdomen:? ?Abdomen soft, mild diffuse tenderness, on lower quadrant, that has not worsened with palpitation, non-distended. Ileostomy and good color. Normal bowel sounds. ?Musculoskeletal:? Moving all 4 extremities upon request a major joints, there is no crepitus or tenderness.? The strength is 5/5 bilaterally and throughout all 4 extremities.? Gait not assessed at this point. ?Neurologic:? cranial nerves 2-12 are grossly intact.? No focal deficits noted.Motor strength as above.?? ?Skin:?No ulcers, no edema Vascular:? 2+ pulses upper and lower extremities distally.? Results Labs 03/31/25 12:21 03/31/25 16:10 Labs: Laboratory Results - last 24 hr 03/30/25 03/30/25 03/30/25 14:34 14:45 15:53 MCV 84.4 MCH 29.2 MCHC 34.5 RDW 14.6 Plt Count 240 MPV 10.3 Immature Gran % (Auto) 0.7 H Neut % (Auto) 84.1 H Lymph % (Auto) 6.7 L [place] % (Auto) 7.7 Eos % (Auto) 0.5 Baso % (Auto) 0.3 Lymph # (Auto) 1.4 Gladwin # (Auto) 1.6 H Eos # (Auto) 0.1 Baso # (Auto) 0.1 Abs Immat Gran (auto) 0.14 H Absolute Neuts (auto) 17.7 H Absolute Nucleated RBC 0.000 Nucleated RBC % (auto) 0.0 Smear Tech's Comments VERIFIED VBG pH 7.49 H VBG pCO2 30 VBG pO2 50 VBG HCO3 23 VBG O2 Saturation 82.0 VBG Base Excess 1.3 Anion Gap 22 H Estim Creat Clear Calc 12.6 Estimated GFR 12 Random Glucose 91 Lactic Acid 1.5 Calcium 8.0 L Magnesium 1.2 L* Total Bilirubin 0.6 Direct Bilirubin 0.4 AST 35 H ALT 47 H Alkaline Phosphatase 230 H C-Reactive Protein 15.00 H B-Natriuretic Peptide 65 Total Protein 7.6 Albumin 3.2 L Lipase 102 H Procalcitonin 1.04 Influenza Type A (PCR) NEGATIVE Influenza Type B (PCR) NEGATIVE RSV RNA Qual (PCR) NEGATIVE SARS-CoV-2 RNA (RT-PCR) NEGATIVE Blood Type O Positive Antibody Screen NEGATIVE 03/30/25 18:01 MCV MCH MCHC RDW Plt Count MPV Immature Gran % (Auto) Neut % (Auto) Lymph % (Auto) Gladwin % (Auto) Eos % (Auto) Baso % (Auto) Lymph # (Auto) Gladwin # (Auto) Eos # (Auto) Baso # (Auto) Abs Immat Gran (auto) Absolute Neuts (auto) Absolute Nucleated RBC Nucleated RBC % (auto) Smear Tech's Comments VBG pH VBG pCO2 VBG pO2 VBG HCO3 VBG O2 Saturation VBG Base Excess Anion Gap 21 H Estim Creat Clear Calc 13.3 Estimated GFR 12 Random Glucose 89 Lactic Acid Calcium 7.8 L Magnesium Total Bilirubin Direct Bilirubin AST ALT Alkaline Phosphatase C-Reactive Protein B-Natriuretic Peptide Total Protein Albumin Lipase Procalcitonin Influenza Type A (PCR) Influenza Type B (PCR) RSV RNA Qual (PCR) SARS-CoV-2 RNA (RT-PCR) Blood Type Antibody Screen Assessment and Plan (1) Acute hypotension: Status: Acute (2) Sepsis: Status: Acute (3) Acute cholecystitis: Status: Acute (4) Abdominal pain: Status: Acute (5) MARKIE (acute kidney injury): Status: Acute (6) Hypomagnesemia: Status: Acute (7) Hyponatremia: Status: Acute Plan 65 year old female? with past medical history of HTN, HLD, CAD, CHF, aflutter on eliquis, IBS, pancreatitis, s/p subtotal colect[place] [facility] [place]), intra abdominal abscess, bacteremia, pericardial effusion, rectovaginal fistula, uterine artery embolization for bleeding fibroid who presented to emergency room with abdominal pain admitted to ICU for hypotension Neuro:? ?No acute issues Cardiac:?? ?Hypotension:? no evidence of septic shock lactic is normal,? patient will poor p.o. Intake in the last couple of days, ? acute MARKIE,? hypotension ? likely from? hypovolemia.? Continue maintenance fluids, colloids,? and weaned from vasopressor support. Sepsis:? no evidence of septic shock,? patient?s lactic is normal.? ? Source likely abdominal,? She was covered with cefepime in the ED.? we will give empiric Zosyn instead.? Pulmonary:? ??No acute issues GI: ? cholecystitis/ cholelithiasis:? CT scan shows cholelithiasis versus gallbladder sludge versus superimposed acute cholecystitis. Liver enzymes are elevated,? but improved from previous admission. ? Previous HIDA scan was negative.? Patient denies? upper quadrant pain.? General surgery? consulted by ED physician, Dr. Dorantes,? , no surgical intervention at this time,will follow-up with patient in the morning.? Appreciate General surgery recommendations.? Continue antibiotics. Renal:?? ?MARKIE- ? related to? hypovolemia, nonoliguric.? Received fluids in ED.? Continue? maintenance fluids and check renal induces and urine output ?Hyponatremia:? likely from her dehydration,? urine studies are pending.? No neurological deficits. ? Cont frequent? serum electrolytes monitoring ?Hypomagnesemia:? patient with chronic hypomagnesemia,? continue replacement.? Endo:?? ?No acute issues? GI:? ?No acute issues ??ID:?? ?Sepsis:? likely abdominal source.? Urine culture and analysis pending.? Blood cultures obtained in the emergency department.? Patient received cefepime in the ED,? we will switch to empiric Zosyn.? Heme/Onc:? No acute issues. Psych:? No acute issues. Misc: no acute issues Prophylaxis: ? patient unable to tolerate p.o.? We will use subcu heparin instead of home Eliquis Code? status:? FULL CODE Critical care time: x 90 min of critical care time? ?Case discussed with attending Dr East?
[2025-03-30 20:01] LABS: Magnesium 1.1 mg/dL (1.6-2.6)
[2025-03-30] MEDS: Albumin Human 25 % 100 ML IV (21:43)
[2025-03-30 21:54] LABS: Thyroid Stimulating Hormone 0.62 uIU/mL (0.32-4.0)
[2025-03-30 22:12] LABS: Appearance Urine Turbid; Glucose Urine UA Negative (Negative); PH 5.0 (5.0-9.0); Specific Gravity - Urine 1.010 (1.005-1.025); UMIC TRIGGER UACC YES
[2025-03-30 22:25] LABS: UACC Culture Trigger YES
[2025-03-30 22:26] LABS: Cannabinoid Screen Urine Not Detected (Not Detect)
[2025-03-30 23:37] LABS: Venous Blood Gas Refer to POC result
[2025-03-30 23:38] LABS: VBG HCO3 17 mmol/L (22-26)
[2025-03-30 23:56] LABS: Anion Gap 24 (12-20); Blood Urea Nitrogen 53 mg/dL (9-16); Calcium 8.1 mg/dL (8.4-10.2); Carbon Dioxide 18 mmol/L (22-29); Chloride 88 mmol/L (96-108); Creatinine Clr Calc Pharmacy 14.5; Estimated Glomerular Filt Rate 14; Magnesium 3.7 mg/dL (1.6-2.6); Potassium 3.4 mmol/L (3.3-5.1); Sodium 127 mmol/L (135-145)
[2025-03-30 23:57] LABS: Osmolality, Serum 278 mosm/kg (281-305)
[2025-03-31] VITALS (36 sets, daily range): BP systolic 92–128; BP diastolic 45–73; PULSE 68–86; RESP 9–20; TEMP 35.3–37.7; O2SAT 94–98; BMI 20.8
--- NOTE | 2025-03-31 | ECG_ITS ---
Test Reason : chest pain Blood Pressure : */* mmHG Vent. Rate : 80 BPM Atrial Rate : 80 BPM P-R Int : 196 ms QRS Dur : 84 ms QT Int : 504 ms P-R-T Axes : 70 34 82 degrees QTcB Int : 581 ms Sinus rhythm with frequent Premature ventricular complexes Nonspecific ST and T wave abnormality Prolonged QT Abnormal ECG When compared with ECG of 30-Mar-2025 18:01, Premature ventricular complexes are now Present T wave inversion less evident in Anterior leads QT has lengthened Referred By: Tracy Rosario Electronically Signed By: SERGIO ISAACS MD
[2025-03-31] MEDS: Albumin Human 25 % 100 ML IV ×3 (02:08→16:09)
--- NOTE | 2025-03-31 04:40 | HO.SKINPHOTO ---
Location: coccyx Category: Stage: Length: Width: Depth: cm Location:RLQ ostomy Category: Stage: Length: Width: Depth: cm
[2025-03-31 05:33] LABS: VBG HCO3 21 mmol/L (22-26); VBG O2 % Saturation 85.0 %
[2025-03-31 05:34] LABS: Venous Blood Gas Refer to POC result
[2025-03-31 05:49] LABS: MANUAL DIFF FLAG NO
[2025-03-31 06:02] LABS: INTERNATIONAL NORM RATIO 1.8 (0.9-1.1); Prothrombin Time 20.2 SEC (10.9-12.4)
[2025-03-31 06:10] LABS: Hematocrit 23.9 % (37.0-47.0); Hemoglobin 8.2 g/dl (12.0-16.0); Imm Gran Abs Auto 0.10 X10*3/uL (0.00-0.03); Imm Gran Pct Auto 0.6 % (0.0-0.4); Lymphocytes Absolute Auto 1.1 X10*3/uL (1.2-4.9); Mean Corpuscular HGB Conc 34.3 g/dl (31.0-35.0); Mean Corpuscular Hemoglobin 29.4 pg (27.0-33.0); Mean Corpuscular Volume 85.7 fL (80.0-98.0); NRBC Abs Auto 0.000 X10*3/uL (0.0-0.012); NRBC Pct Auto 0.0 /100WBC (0.0-0.2); Platelet Count 195 X10*3/uL (160-400); Red Blood Count 2.79 X10*6/uL (4.20-5.50); White Blood Count 16.7 X10*3/uL (4.8-10.8)
[2025-03-31 06:12] LABS: Troponin-I High Sensitivity 10.7 ng/L (<3.5-17.0)
[2025-03-31 06:15] LABS: Alanine Aminotransferase 28 U/L (0-31); Albumin Level 4.6 g/dL (3.5-5.0); Alkaline Phosphatase 145 U/L (39-117); Anion Gap 23 (12-20); Aspartate Amino Transferase 27 U/L (5-31); Blood Urea Nitrogen 50 mg/dL (9-16); Calcium 8.1 mg/dL (8.4-10.2); Carbon Dioxide 20 mmol/L (22-29); Chloride 90 mmol/L (96-108); Creatinine Clr Calc Pharmacy 16.2; Estimated Glomerular Filt Rate 15; Magnesium 3.2 mg/dL (1.6-2.6); Potassium 3.3 mmol/L (3.3-5.1); Sodium 130 mmol/L (135-145); Total Protein 7.4 g/dL (6.5-8.0)
--- NOTE | 2025-03-31 07:40 | PC.ADMIT ---
Patient arrived to ICU from ED at approximately?2044. Upon initial assessment- Patient A+Ox4, drowsy/vague, arousable to name but unable to maintain wakefulness. Follows simple commands. WESLEY. NSR with PVCs, HR 70s. SBP 100s. On Levophed gtt, titrated per MAR.?+1 edema to bilateral arms and legs. On RA, SpO2 >95%. Lungs clear. RR 8-10, WHITE SHOE EXAMINER Abraham aware. Abd soft, nontender.?+BS. Ileostomy to RLQ. Patient wearing a brief upon arrival, small amount of dark red ?vaginal drainage present in brief, WHITE SHOE EXAMINER aware. TLC to right IJ, intact and patent.??Repeat labs obtained. IV Magnesium Sulfate, Albumin and Zosyn administered per NOV. Erwin catheter placed per order for retention, draining clear yellow urine.? Approximately?0530- Pt more awake, A+Ox4, complaining of upper back/chest pain, states it feels like a jim horse in my chest , denies any SOB or nausea, NSR on tele, WHITE SHOE EXAMINER notified. EKG and Troponin obtained- see EMR.?PRN Dilaudid administered per NOV with good effect. Bed locked in lowest position, bed alarm on, call beyer within reach.?Report given to oncoming RN at 0700.
[2025-03-31] MEDS: Potassium Chloride/H20 40 MEQ/100 ML PIGGYBACK 50 MEQ IV (08:09)
--- NOTE | 2025-03-31 08:17 | PM.CNGS ---
History of Present Illness Consult details Consult date: 03/31/25 <Gabi Victoria PA-C - Last Filed: 04/02/25 10:35> Reason for consult: other (?acute cholecystitis) <Gabi Victoria PA-C - Last Filed: 04/02/25 10:35> Narrative: 65 year old female well known to the surgical service with extensive PMH of HTN, HLD, CAD, CHF, aflutter on eliquis, IBS, pancreatitis and extensive surgical history including subtotal colectomy, end ileostomy and parastomal hernia repair at [facility] in January of 2025 complicated by multiple intraabdominal abscesses requiring IR drainage. She has had multiple recent admissions for pancreatitis/electrolyte abnormalities as well as anemia, fibroids s/p uterine artery embolization. She was started on a prednisone taper that ended a few days ago. She was discharged to [facility] and just returned home. She reports developing central mid back and chest pain with associated anorexia, decreased oral intake and increasing weakness. She therefore presented to the ED for evaluation where work up was significant for a leukocytosis of 21, hyponatremia of 123. ABD/Pelvis CT scan showed cholelithiasis versus gallbladder with possible superimposed acute cholecystitis.?She was hypotensive and did not respond to IVF requiring pressors and ICU admission. She currently denies any abdominal pain. She thinks her back pain is improved. During her last admission she had extensive abdominal imaging including HIDA which showed filling of the gallbladder, borderline biliary dyskinesia. <Gabi Victoria PA-C - Last Filed: 04/02/25 10:35> Review of Systems Review of Systems: Yes all other systems are reviewed and are negative <Gabi Victoria PA-C - Last Filed: 04/02/25 10:35> [facility] Past Medical History Medical History: Medical History Pancreatitis Insomnia Bilateral knee pain Polyarthralgia MARKIE (acute kidney injury) Back pain Arthritis History of transfusion of packed red blood cells Anemia Cardiomyopathy MARKIE (acute kidney injury) MARKIE (acute kidney injury) Anxiety Small bowel obstruction Myocardial infarction NSTEMI (non-ST elevated myocardial infarction) NSVT (nonsustained ventricular tachycardia) PVC (premature ventricular contraction) Hypertension Perforated diverticulum Irritable bowel syndrome with constipation Barretts esophagus GERD (gastroesophageal reflux disease) <Gabi Victoria PA-C - Last Filed: 04/02/25 10:35> Family History Family History: Family History Father Colon cancer Congestive heart failure Paternal Aunt Colon cancer Mother Congestive heart failure Afib <Gabi Victoria PA-C - Last Filed: 04/02/25 10:35> Surgical History Surgical History: Surgical History S/P colon resection PIC line (peripherally inserted central catheter) removal History of low anterior resection of rectum Status post cardiac catheterization Ileostomy in place H/O dilation and curettage History of exploratory laparotomy (05/11/23) S/P colostomy Colovesical fistula History of esophagogastroduodenoscopy (EGD) Hx of colonoscopy <Gabi Victoria PA-C - Last Filed: 04/02/25 10:35> Social History Social History: Social History Household Members: None Housing: House Are you a primary career placement specialist to a significant other at home: No Do you presently have visiting nurse or other home services: Yes Alcohol intake: never Comment: located near nursing station Patient Tobacco Use Status: Former Tobacco user Tobacco use type: Cigarette Cigarette Packs Per Day: 0.5 Cigarettes Per Day: 10.0 Years Smoked: 25 Smoked in Last 30 Days: No e-Cigarette/Vaping Use: Former Use Second Hand Smoke Exposure: No Use of substances other than those prescribed or required for medical reasons: No Substance Use Type: Marijuana Currently Displaying Signs/Symptoms of Drug Intoxication Withdrawal: No Have you been hit, kicked, punched, or otherwise hurt by someone within the past year? If so, by whom?: No Do you feel safe in your current relationship?: No Current Relationship Is there a partner from a previous relationship who is making you feel unsafe now?: No Are you made to feel afraid or neglected: No Advance Directives: Yes Advance Directives on File: Yes Advance Directives Date on File: 12/29/23 Do you have a plan to hurt others: No Plan Recently lost weight without trying: Yes How much weight loss: 24-33 pounds Eating poorly because of decreased appetite: Yes Nutrition screen score: 6 Nutrition Risks: Acute nausea or vomiting x1 week and Poor intake 0-25% >4 days Patient : No service: No Cognitive needs: No Hearing needs: No Vision needs: Yes <Gabi Victoria PA-C - Last Filed: 04/02/25 10:35> Meds Allergies/Adverse reactions: Allergies Allergy/AdvReac Type Severity Reaction Status Date / Time clams Allergy Severe Stomach Verified 03/30/25 14:01 Upset clavulanic acid (Augmentin) Allergy Unknown GI, Verified 03/30/25 14:01 Difficulty breathing codeine (CODEINE) Allergy Unknown SENSITIVIT Verified 03/30/25 14:01 Y erythromycin base Allergy Unknown GI, DIFF Verified 03/30/25 14:01 (Erythromycin Base) BREATHING Sulfa (Sulfonamide Allergy Unknown RASH Verified 03/30/25 14:01 Antibiotics) morphine (MORPHINE) AdvReac Severe Difficulty Verified 03/30/25 14:01 Breathing aspirin (Aspirin) AdvReac Mild STOMACH Verified 03/30/25 14:01 UPSET melatonin AdvReac Vomiting Verified 03/30/25 14:01 <STAN Wilder Last Filed: 04/02/25 10:35> Active Medications: Current Medications Heparin Sodium (Porcine) (Heparin Sodium,Porcine 5,000 Unit/Ml Vial) 5,000 unit SUBCUT Q8H [facility] Last Admin: 03/31/25 03:24 Dose: 5,000 unit Hydromorphone HCl (Hydromorphone Hcl 0.5 Mg/0.5 Ml Syringe) 0.5 mg IVPUSH Q4H PRN; Protocol PRN Reason: Pain, Severe (Pain Scale 7-10) Last Admin: 03/31/25 06:47 Dose: 0.5 mg Lactated Ringer's (Lr) 1,000 mls @ 80 mls/hr IVCONT .[id number] [facility] On Hold: 03/31/25 00:34 Last Infusion: 03/31/25 00:33 Dose: Infused Norepinephrine Bitartrate (Levophed) 8 mg in 250 mls @ 0 mls/hr IVCONT .Q0M [facility]; Protocol Last Titration: 03/31/25 08:06 Dose: 0.19 mcg/kg/min, 19.84 mls/hr Piperacillin Sod/Tazobactam (Sod 4.5 gm/ Sodium Chloride) 100 mls @ 200 mls/hr IV Q8H [facility] Last Infusion: 03/31/25 04:00 Dose: Infused Albumin Human (Kedbumin 25 %) 100 mls @ 100 mls/hr IV Q6H [facility] Stop: 03/31/25 15:59 Last Admin: 03/31/25 08:09 Dose: 100 mls/hr Potassium Chloride (Potassium Chloride/H20) 40 meq in 100 mls @ 50 mls/hr IV ONCE ONE Stop: 03/31/25 09:59 Last Admin: 03/31/25 08:09 Dose: 50 mls/hr <Gabi Victoria PA-C - Last Filed: 04/02/25 10:35> Home medications: Home Medications ?Medication ?Instructions ?Recorded ?Confirmed ?Last Taken ?Type mirtazapine 15 mg tablet 15 mg PO BEDTIME 11/30/23 03/31/25 03/30/25 History multivitamin with minerals-folic 1 tab PO DAILY 01/07/24 03/31/25 03/30/25 History acid 200 mcg chewable tablet (Multivitamin Gummies) carisoprodol 350 mg tablet 350 mg PO BEDTIME 03/19/24 03/31/25 03/30/25 History amiodarone 200 mg tablet 200 mg PO DAILY 02/19/25 03/31/25 03/30/25 History apixaban 5 mg tablet (Eliquis) 5 mg PO BID 02/19/25 03/31/25 03/30/25 History colchicine 0.6 mg tablet 0.6 mg PO DAILY 02/19/25 03/31/25 03/30/25 History esomeprazole magnesium 20 mg 20 mg PO DAILY@0630 02/19/25 03/31/25 03/30/25 History capsule,delayed release (Nexium) cyanocobalamin (vitamin B-12) 1,000 mcg PO DAILY 03/31/25 03/31/25 03/30/25 History 1,000 mcg tablet (Vitamin B-12) potassium chloride 20 mEq 20 meq PO BID 03/31/25 03/31/25 03/30/25 History tablet,extended release <STAN Wilder Last Filed: 04/02/25 10:35> Physical Exam Vital Signs: Vital Signs: Last Vital Signs Temp 97.2 F 03/31/25 08:00 Pulse 86 03/31/25 08:06 Resp 18 03/31/25 08:00 BP 124/73 03/31/25 08:06 Pulse Ox 97 03/31/25 08:00 O2 Del Method Room Air 03/31/25 08:00 BMI result Body Mass Index 20.8 <Gabi Victoria PA-C - Last Filed: 04/02/25 10:35> Const: Orientation/consciousness: patient oriented x3 <Gabi Victoria PA-C Last Filed: 04/02/25 10:35> Resp: Effort & Inspection: normal respiratory effort, able to speak in complete sentences and not labored <Gabi Victoria PA-C Harshal Last Filed: 04/02/25 10:35> GI: Other: ostomy right mid abdomen multiple well healed midline scars very mild RUQ tenderness, negative hernandez sign <STAN Wilder Last Filed: 04/02/25 10:35> Inspection: No distended <Gabi Victoria PA-C Last Filed: 04/02/25 10:35> Palpation (GI): Soft to palpation, Tenderness to palpation present (GI), no guarding and not rigid <Gabi Victoria PA-C Harshal Last Filed: 04/02/25 10:35> Skin: General skin exam: no rashes or lesions noted and no jaundice <Gabi Victoria PA-C Harshal Last Filed: 04/02/25 10:35> Neuro: General: patient oriented x3 and moves all extremities <Gabi Victoria PA-C Last Filed: 04/02/25 10:35> Results Labs Result diagrams: 04/02/25 05:23 04/02/25 05:23 <STAN Wilder Last Filed: 04/02/25 10:35> Labs: Abnormal lab results 03/30/25 03/30/25 03/30/25 Range/Units 14:34 14:45 15:53 WBC 21.0 H (4.8-10.8) X10*3/uL RBC 3.91 L (4.20-5.50) X10*6/uL Hgb 11.4 L (12.0-16.0) g/dl Hct 33.0 L (37.0-47.0) % Immature Gran % (Auto) 0.7 H (0.0-0.4) % Neut % (Auto) 84.1 H (45-73) % Lymph % (Auto) 6.7 L (20-40) % Lymph # (Auto) (1.2-4.9) X10*3/uL [place] # (Auto) 1.6 H (0.1-1.2) X10*3/uL Abs Immat Gran (auto) 0.14 H (0.00-0.03) X10*3/uL Absolute Neuts (auto) 17.7 H (2.0-8.3) x10*3/uL PT (10.9-12.4) SEC INR (0.9-1.1) VBG pH 7.49 H (7.32-7.43) VBG HCO3 (22-26) mmol/L Sodium 123 L (135-145) mmol/L Chloride 88 L (96-108) mmol/L Carbon Dioxide 18 L (22-29) mmol/L Anion Gap 22 H (12-20) BUN 57 H (9-16) mg/dL Creatinine 3.86 H (0.5-1.4) mg/dL Random Glucose (60-115) mg/dL Osmolality (281-305) mosm/kg Calcium 8.0 L (8.4-10.2) mg/dL Magnesium 1.2 L* (1.6-2.6) mg/dL AST 35 H (5-31) U/L ALT 47 H (0-31) U/L Alkaline Phosphatase 230 H (39-117) U/L C-Reactive Protein 15.00 H (< or = 0.50) mg/dL Albumin 3.2 L (3.5-5.0) g/dL Lipase 102 H (8-78) U/L Urine Protein (Neg-Trace) mg/dL Urine Blood (Negative) Ur Leukocyte Esterase (Negative) Urine RBC (0-2) /HPF Urine WBC (0-5) /HPF Urine Osmolality (373-1093) mosm/kg Urine Opiates Screen (Not Detect) 03/30/25 03/30/25 03/30/25 Range/Units 18:01 21:54 21:55 WBC (4.8-10.8) X10*3/uL RBC (4.20-5.50) X10*6/uL Hgb (12.0-16.0) g/dl Hct (37.0-47.0) % Immature Gran % (Auto) (0.0-0.4) % Neut % (Auto) (45-73) % Lymph % (Auto) (20-40) % Lymph # (Auto) (1.2-4.9) X10*3/uL [place] # (Auto) (0.1-1.2) X10*3/uL Abs Immat Gran (auto) (0.00-0.03) X10*3/uL Absolute Neuts (auto) (2.0-8.3) x10*3/uL PT (10.9-12.4) SEC INR (0.9-1.1) VBG pH (7.32-7.43) VBG HCO3 (22-26) mmol/L Sodium 124 L (135-145) mmol/L Chloride 86 L (96-108) mmol/L Carbon Dioxide 21 L (22-29) mmol/L Anion Gap 21 H (12-20) BUN 56 H (9-16) mg/dL Creatinine 3.65 H (0.5-1.4) mg/dL Random Glucose (60-115) mg/dL Osmolality (281-305) mosm/kg Calcium 7.8 L (8.4-10.2) mg/dL Magnesium 1.1 L* (1.6-2.6) mg/dL AST (5-31) U/L ALT (0-31) U/L Alkaline Phosphatase (39-117) U/L C-Reactive Protein (< or = 0.50) mg/dL Albumin (3.5-5.0) g/dL Lipase (8-78) U/L Urine Protein 30 (1+) H (Neg-Trace) mg/dL Urine Blood Large (3+) H (Negative) Ur Leukocyte Esterase Large (3+) H (Negative) Urine RBC >20 H (0-2) /HPF Urine WBC >50 H (0-5) /HPF Urine Osmolality 240 L (373-1093) mosm/kg Urine Opiates Screen POSITIVE H (Not Detect) 03/30/25 03/30/25 03/31/25 Range/Units 23:24 23:33 05:24 WBC 16.7 H (4.8-10.8) X10*3/uL RBC 2.79 L D (4.20-5.50) X10*6/uL Hgb 8.2 L D (12.0-16.0) g/dl Hct 23.9 L D (37.0-47.0) % Immature Gran % (Auto) 0.6 H (0.0-0.4) % Neut % (Auto) 86.5 H (45-73) % Lymph % (Auto) 6.5 L (20-40) % Lymph # (Auto) 1.1 L (1.2-4.9) X10*3/uL [place] # (Auto) (0.1-1.2) X10*3/uL Abs Immat Gran (auto) 0.10 H (0.00-0.03) X10*3/uL Absolute Neuts (auto) 14.4 H (2.0-8.3) x10*3/uL PT 20.2 H (10.9-12.4) SEC INR 1.8 H (0.9-1.1) VBG pH (7.32-7.43) VBG HCO3 17 L (22-26) mmol/L Sodium 127 L (135-145) mmol/L Chloride 88 L (96-108) mmol/L Carbon Dioxide 18 L (22-29) mmol/L Anion Gap 24 H (12-20) BUN 53 H (9-16) mg/dL Creatinine 3.33 H (0.5-1.4) mg/dL Random Glucose 149 H (60-115) mg/dL Osmolality 278 L (281-305) mosm/kg Calcium 8.1 L (8.4-10.2) mg/dL Magnesium 3.7 H* (1.6-2.6) mg/dL AST (5-31) U/L ALT (0-31) U/L Alkaline Phosphatase (39-117) U/L C-Reactive Protein (< or = 0.50) mg/dL Albumin (3.5-5.0) g/dL Lipase (8-78) U/L Urine Protein (Neg-Trace) mg/dL Urine Blood (Negative) Ur Leukocyte Esterase (Negative) Urine RBC (0-2) /HPF Urine WBC (0-5) /HPF Urine Osmolality (373-1093) mosm/kg Urine Opiates Screen (Not Detect) 03/31/25 03/31/25 Range/Units 05:27 05:32 WBC (4.8-10.8) X10*3/uL RBC (4.20-5.50) X10*6/uL Hgb (12.0-16.0) g/dl Hct (37.0-47.0) % Immature Gran % (Auto) (0.0-0.4) % Neut % (Auto) (45-73) % Lymph % (Auto) (20-40) % Lymph # (Auto) (1.2-4.9) X10*3/uL [place] # (Auto) (0.1-1.2) X10*3/uL Abs Immat Gran (auto) (0.00-0.03) X10*3/uL Absolute Neuts (auto) (2.0-8.3) x10*3/uL PT (10.9-12.4) SEC INR (0.9-1.1) VBG pH 7.45 H (7.32-7.43) VBG HCO3 21 L (22-26) mmol/L Sodium 130 L (135-145) mmol/L Chloride 90 L (96-108) mmol/L Carbon Dioxide 20 L (22-29) mmol/L Anion Gap 23 H (12-20) BUN 50 H (9-16) mg/dL Creatinine 3.15 H (0.5-1.4) mg/dL Random Glucose 121 H (60-115) mg/dL Osmolality (281-305) mosm/kg Calcium 8.1 L (8.4-10.2) mg/dL Magnesium 3.2 H (1.6-2.6) mg/dL AST (5-31) U/L ALT (0-31) U/L Alkaline Phosphatase 145 H (39-117) U/L C-Reactive Protein (< or = 0.50) mg/dL Albumin (3.5-5.0) g/dL Lipase (8-78) U/L Urine Protein (Neg-Trace) mg/dL Urine Blood (Negative) Ur Leukocyte Esterase (Negative) Urine RBC (0-2) /HPF Urine WBC (0-5) /HPF Urine Osmolality (373-1093) mosm/kg Urine Opiates Screen (Not Detect) Short CBC 03/30/25 03/31/25 Range/Units 14:34 05:24 WBC 21.0 H 16.7 H (4.8-10.8) X10*3/uL Hgb 11.4 L 8.2 L D (12.0-16.0) g/dl Hct 33.0 L 23.9 L D (37.0-47.0) % Plt Count 240 195 (160-400) X10*3/uL BMP 03/30/25 03/30/25 03/30/25 15:53 18:01 23:24 Sodium 123 L 124 L 127 L Potassium 4.7 D 4.3 3.4 D Chloride 88 L 86 L 88 L Carbon Dioxide 18 L 21 L 18 L BUN 57 H 56 H 53 H Creatinine 3.86 H 3.65 H 3.33 H Calcium 8.0 L 7.8 L 8.1 L 03/31/25 05:32 Sodium 130 L Potassium 3.3 Chloride 90 L Carbon Dioxide 20 L BUN 50 H Creatinine 3.15 H Calcium 8.1 L Liver Function 03/30/25 03/31/25 Range/Units 15:53 05:32 Total Bilirubin 0.6 0.8 (0.0-1.0) mg/dL Direct Bilirubin 0.4 (0.0-0.5) mg/dL AST 35 H 27 (5-31) U/L ALT 47 H 28 (0-31) U/L Alkaline Phosphatase 230 H 145 H (39-117) U/L Albumin 3.2 L 4.6 (3.5-5.0) g/dL Urine 03/30/25 Range/Units 21:54 Urine Color Dark Yellow Urine Appearance Turbid Urine pH 5.0 (5.0-9.0) Ur Specific [place] 1.010 (1.005-1.025) Urine Protein 30 (1+) H (Neg-Trace) mg/dL Urine Glucose (UA) Negative (Negative) mg/dL All other labs normal. <Gabi Victoria PA-C Last Filed: 04/02/25 10:35> Imaging Abdomen CT scan report/results: report reviewed and image reviewed <STAN Wilder Last Filed: 04/02/25 10:35> Assessment and Plan (1) Sepsis: Status: Acute <STAN Wilder Last Filed: 04/02/25 10:35> 65 year old female well known to the surgical service with extensive PMH of HTN, HLD, CAD, CHF, aflutter on eliquis, IBS, pancreatitis, extensive surgical history with multiple frequent admissions. Patient was admitted to the ICU for severe sepsis and hypotension requiring pressors. CT scan abd pelvis was obtained which gallstones vs sludge, possible gallbladder wall thickening with mild surrounding fat stranding. No other acute findings. There was concern for acute cholecystitis and therefore general surgery was consulted. This morning WBC is improved. She is mildly tender in the RUQ without hernandez sign. 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 At this point, recommended continuing nonoperative management. Will continue to follow. Can have clear liquids for now. <Gabi Victoria PA-C Last Filed: 04/02/25 10:35> 65 year old female well known to the surgical service with extensive PMH of HTN, HLD, CAD, CHF, aflutter on eliquis, IBS, pancreatitis, extensive surgical history with multiple frequent admissions. Patient was admitted to the ICU for severe sepsis and hypotension requiring pressors. CT scan abd pelvis was obtained which gallstones vs sludge, possible gallbladder wall thickening with mild surrounding fat stranding. No other acute findings. There was concern for acute cholecystitis and therefore general surgery was consulted. This morning WBC is improved. She is mildly tender in the RUQ without hernandez sign. 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 At this point, recommended continuing nonoperative management. Will continue to follow. Can have clear liquids for now. 65 year old female well known to the surgical department coming in with hypotension sepsis? etiology - pt has had pancreatitisi in the past- there has been questions of cholecystitis but HIDA negative and no certainty of this documented. Pt had had complex surgical past and now with subtotal colectomy and end ileostomy -new CT scan showing improvement in intra-abdo fluid collections Pt with some mild upper abdo tenderness on exam on pressors in icu and fluid resuscitation- see CT scan questions of GB keep coming up - due to past surgery and her fragile state risk of lap j luis is substantial - would recommend carrying out IVR cholecystostomy tube placement and eventual cholangiogram via tube. Pt is in agreement. Will schedule for Monday. <Daphne Dorantes MD - Last Filed: 04/01/25 23:53> Procedures Date of Service Date of Service: 04/02/25 <Gabi Victoria PA-C - Last Filed: 04/02/25 10:35> 04/01/25 <Daphne Dorantes MD - Last Filed: 04/01/25 23:53>
--- NOTE | 2025-03-31 08:50 | P.PNCC_ITS ---
Subjective Subjective Date of Service: 03/31/25 Interval History: Remains on Levophed for vasopressor support Critical Care Time (minutes): 35 Physical Exam 2 Exam: Exam: General: Elderly lady who is ill appearing and tired appearing Nutritional Appearance: Poorly nourished and underweight Eyes: appearance normal, both eyes and all related structures; Alignment and Position: alignment normal and position normal Neck: No lymphadenopathy, no thyromegaly Resp: bilateral air entry equal, occasional added sounds present Cardio: Regular rate, regular rhythm; Heart sounds: S1 normal heart sound present and S2 normal heart sound present GI: soft, nontender, no guarding, no hepatosplenomegaly : bladder normal to inspection, bladder normal to palpation, no renal angle tenderness Skin: no rashes or lesions noted and elasticity normal Neuro: oriented to person, oriented to place, oriented to time and moves all extremities Vital Signs: Vital Signs: Last Vital Signs Temp 97.2 F 03/31/25 08:00 Pulse 86 03/31/25 08:06 Resp 18 03/31/25 08:00 BP 124/73 03/31/25 08:06 Pulse Ox 97 03/31/25 08:00 O2 Del Method Room Air 03/31/25 08:00 BMI result Body Mass Index 20.8 Objective Data Labs 03/31/25 12:21 03/31/25 12:21 Labs: Laboratory Results - last 24 hr 03/30/25 03/30/25 03/30/25 14:34 14:45 15:53 WBC 21.0 H RBC 3.91 L Hgb 11.4 L Hct 33.0 L MCV 84.4 MCH 29.2 MCHC 34.5 RDW 14.6 Plt Count 240 MPV 10.3 Immature Gran % (Auto) 0.7 H Neut % (Auto) 84.1 H Lymph % (Auto) 6.7 L [place] % (Auto) 7.7 Eos % (Auto) 0.5 Baso % (Auto) 0.3 Lymph # (Auto) 1.4 [place] # (Auto) 1.6 H Eos # (Auto) 0.1 Baso # (Auto) 0.1 Abs Immat Gran (auto) 0.14 H Absolute Neuts (auto) 17.7 H Absolute Nucleated RBC 0.000 Nucleated RBC % (auto) 0.0 Smear Tech's Comments VERIFIED PT INR VBG pH 7.49 H VBG pCO2 30 VBG pO2 50 VBG HCO3 23 VBG O2 Saturation 82.0 VBG Base Excess 1.3 Sodium 123 L Potassium 4.7 D Chloride 88 L Carbon Dioxide 18 L Anion Gap 22 H BUN 57 H Creatinine 3.86 H Estim Creat Clear Calc 12.6 Estimated GFR 12 Random Glucose 91 Osmolality Lactic Acid 1.5 Calcium 8.0 L Phosphorus Magnesium 1.2 L* Total Bilirubin 0.6 Direct Bilirubin 0.4 AST 35 H ALT 47 H Alkaline Phosphatase 230 H Troponin I High Sens 6.6 D C-Reactive Protein 15.00 H B-Natriuretic Peptide 65 Total Protein 7.6 Albumin 3.2 L Lipase 102 H Procalcitonin 1.04 TSH Urine Color Urine Appearance Urine pH Ur Specific [place] Urine Protein Urine Glucose (UA) Urine Ketones Urine Blood Urine Nitrite Ur Leukocyte Esterase Urine RBC Urine WBC Ur Squamous Epith Cells Urine Bacteria Hyaline Casts Urine Osmolality Ur Random Sodium Urine Opiates Screen Ur Buprenorphine Scrn Ur Oxycodone Screen Urine Methadone Screen Urine Fentanyl Screen Ur Barbiturates Screen Ur Phencyclidine Scrn Ur Amphetamines Screen U Benzodiazepines Scrn Urine Cocaine Screen U Marijuana (THC) Screen Influenza Type A (PCR) NEGATIVE Influenza Type B (PCR) NEGATIVE RSV RNA Qual (PCR) NEGATIVE SARS-CoV-2 RNA (RT-PCR) NEGATIVE Blood Type O Positive Antibody Screen NEGATIVE 03/30/25 03/30/25 03/30/25 18:01 21:54 21:55 WBC RBC Hgb Hct MCV MCH MCHC RDW Plt Count MPV Immature Gran % (Auto) Neut % (Auto) Lymph % (Auto) [place] % (Auto) Eos % (Auto) Baso % (Auto) Lymph # (Auto) [place] # (Auto) Eos # (Auto) Baso # (Auto) Abs Immat Gran (auto) Absolute Neuts (auto) Absolute Nucleated RBC Nucleated RBC % (auto) Smear Tech's Comments PT INR VBG pH VBG pCO2 VBG pO2 VBG HCO3 VBG O2 Saturation VBG Base Excess Sodium 124 L Potassium 4.3 Chloride 86 L Carbon Dioxide 21 L Anion Gap 21 H BUN 56 H Creatinine 3.65 H Estim Creat Clear Calc 13.3 Estimated GFR 12 Random Glucose 89 Osmolality Lactic Acid Calcium 7.8 L Phosphorus 4.4 Magnesium 1.1 L* Total Bilirubin Direct Bilirubin AST ALT Alkaline Phosphatase Troponin I High Sens 6.5 C-Reactive Protein B-Natriuretic Peptide Total Protein Albumin Lipase Procalcitonin TSH 0.62 Urine Color Dark Yellow Urine Appearance Turbid Urine pH 5.0 Ur Specific [place] 1.010 Urine Protein 30 (1+) H Urine Glucose (UA) Negative Urine Ketones Trace Urine Blood Large (3+) H Urine Nitrite Negative Ur Leukocyte Esterase Large (3+) H Urine RBC >20 H Urine WBC >50 H Ur Squamous Epith Cells 0-2 Urine Bacteria 1+ Hyaline Casts >20 Urine Osmolality 240 L Ur Random Sodium < 20.0 Urine Opiates Screen POSITIVE H Ur Buprenorphine Scrn Not Detected Ur Oxycodone Screen Not Detected Urine Methadone Screen Not Detected Urine Fentanyl Screen Not Detected Ur Barbiturates Screen Not Detected Ur Phencyclidine Scrn Not Detected Ur Amphetamines Screen Not Detected U Benzodiazepines Scrn Not Detected Urine Cocaine Screen Not Detected U Marijuana (THC) Screen Not Detected Influenza Type A (PCR) Influenza Type B (PCR) RSV RNA Qual (PCR) SARS-CoV-2 RNA (RT-PCR) Blood Type Antibody Screen 03/30/25 03/30/25 03/31/25 23:24 23:33 05:24 WBC 16.7 H RBC 2.79 L D Hgb 8.2 L D Hct 23.9 L D MCV 85.7 MCH 29.4 MCHC 34.3 RDW 14.1 Plt Count 195 MPV 10.3 Immature Gran % (Auto) 0.6 H Neut % (Auto) 86.5 H Lymph % (Auto) 6.5 L [place] % (Auto) 6.0 Eos % (Auto) 0.1 Baso % (Auto) 0.3 Lymph # (Auto) 1.1 L [place] # (Auto) 1.0 Eos # (Auto) 0.0 Baso # (Auto) 0.1 Abs Immat Gran (auto) 0.10 H Absolute Neuts (auto) 14.4 H Absolute Nucleated RBC 0.000 Nucleated RBC % (auto) 0.0 Smear Tech's Comments PT 20.2 H INR 1.8 H VBG pH 7.37 VBG pCO2 29 VBG pO2 96 VBG HCO3 17 L VBG O2 Saturation TNP VBG Base Excess -6.6 Sodium 127 L Potassium 3.4 D Chloride 88 L Carbon Dioxide 18 L Anion Gap 24 H BUN 53 H Creatinine 3.33 H Estim Creat Clear Calc 14.5 Estimated GFR 14 Random Glucose 149 H Osmolality 278 L Lactic Acid Calcium 8.1 L Phosphorus 4.3 Magnesium 3.7 H* Total Bilirubin Direct Bilirubin AST ALT Alkaline Phosphatase Troponin I High Sens C-Reactive Protein B-Natriuretic Peptide Total Protein Albumin Lipase Procalcitonin TSH Urine Color Urine Appearance Urine pH Ur Specific [place] Urine Protein Urine Glucose (UA) Urine Ketones Urine Blood Urine Nitrite Ur Leukocyte Esterase Urine RBC Urine WBC Ur Squamous Epith Cells Urine Bacteria Hyaline Casts Urine Osmolality Ur Random Sodium Urine Opiates Screen Ur Buprenorphine Scrn Ur Oxycodone Screen Urine Methadone Screen Urine Fentanyl Screen Ur Barbiturates Screen Ur Phencyclidine Scrn Ur Amphetamines Screen U Benzodiazepines Scrn Urine Cocaine Screen U Marijuana (THC) Screen Influenza Type A (PCR) Influenza Type B (PCR) RSV RNA Qual (PCR) SARS-CoV-2 RNA (RT-PCR) Blood Type Antibody Screen 03/31/25 03/31/25 05:27 05:32 WBC RBC Hgb Hct MCV MCH MCHC RDW Plt Count MPV Immature Gran % (Auto) Neut % (Auto) Lymph % (Auto) [place] % (Auto) Eos % (Auto) Baso % (Auto) Lymph # (Auto) [place] # (Auto) Eos # (Auto) Baso # (Auto) Abs Immat Gran (auto) Absolute Neuts (auto) Absolute Nucleated RBC Nucleated RBC % (auto) Smear Tech's Comments PT INR VBG pH 7.45 H VBG pCO2 29 VBG pO2 56 VBG HCO3 21 L VBG O2 Saturation 85.0 VBG Base Excess -2.0 Sodium 130 L Potassium 3.3 Chloride 90 L Carbon Dioxide 20 L Anion Gap 23 H BUN 50 H Creatinine 3.15 H Estim Creat Clear Calc 16.2 Estimated GFR 15 Random Glucose 121 H Osmolality Lactic Acid Calcium 8.1 L Phosphorus 4.4 Magnesium 3.2 H Total Bilirubin 0.8 Direct Bilirubin AST 27 ALT 28 Alkaline Phosphatase 145 H Troponin I High Sens 10.7 D C-Reactive Protein B-Natriuretic Peptide Total Protein 7.4 Albumin 4.6 Lipase Procalcitonin TSH Urine Color Urine Appearance Urine pH Ur Specific [place] Urine Protein Urine Glucose (UA) Urine Ketones Urine Blood Urine Nitrite Ur Leukocyte Esterase Urine RBC Urine WBC Ur Squamous Epith Cells Urine Bacteria Hyaline Casts Urine Osmolality Ur Random Sodium Urine Opiates Screen Ur Buprenorphine Scrn Ur Oxycodone Screen Urine Methadone Screen Urine Fentanyl Screen Ur Barbiturates Screen Ur Phencyclidine Scrn Ur Amphetamines Screen U Benzodiazepines Scrn Urine Cocaine Screen U Marijuana (THC) Screen Influenza Type A (PCR) Influenza Type B (PCR) RSV RNA Qual (PCR) SARS-CoV-2 RNA (RT-PCR) Blood Type Antibody Screen Progress Note: A&P Assessment and plan (1) Acute hypotension: Status: Acute (2) CAD (coronary artery disease): Status: Acute (3) Acute cholecystitis: Status: Acute (4) MARKIE (acute kidney injury): Status: Acute (5) Sepsis: Status: Acute Plan Cardiac: Septic Shock: Possibly secondary to intra-abdominal infection On Levophed support, titrate Levophed to keep map above 65 mm Hg Atrial flutter/ AFib,? pericardial effusion, coronary artery disease: Currently in sinus rhythm, rate controlled We will hold off Eliquis possibly needing a procedure today GI: CT abdomen showing possible acute cholecystitis versus gallbladder sludge. We will get ultrasound of the liver, if inconsistent we will get HIDA scan. There is also parastomal right lower quadrant hernia with a collection around it suggestive of incarcerated bowel loop versus hematoma versus abscess. She has history of perfeorated colon due to divertiulitis s/p colectomy in the past with hernia repair and revision colostomy converted to [place] [facility] ([place]), intra-abdominal abscess/Finegoldia bacteremia (drained at [facility] [place] in February 2025 and completed abx therapy). She had admission 02/28/2025 to 03/18/2025? for concern of cholecystitis,? HIDA was negative,? acute pancreatitis, anemia and rectovaginal fistula, s/p uterine artery embolization for bleeding fibroid. General surgery consulted, waiting on an opinion; we will also consult Interventional Radiology for possibly draining the collection Renal: Acute kidney injury possibly secondary to ATN from shock Baseline creatinine normal, creatinine today is 3.4 We will closely monitor I's and O's Avoid nephrotoxic medications Acute hyponatremia: We will give her another L of normal saline bolus We will repeat BMP this afternoon High anion gap metabolic acidosis: Secondary to renal failure We will check ketones Heme: Chronic anemia, closely monitor H&H, transfuse for hemoglobin less than 7 grams/deciliter Endocrine: Blood sugars under control Sliding scale insulin as needed Infectious disease: Pancultures pending On empiric Zosyn Musculoskeletal: Decubitus ulcer prevention protocol Lines: peripheral Prophylaxis: Lovenox, pantoprazole Quality Stroke Does the patient have a stroke diagnosis?: No VTE Prior VTE?: No VTE Risk Level:: Medical - moderate - high VTE Device Contraindication: N/A - Device Ordered VTE Drug Contraindication: N/A - Med Ordered
--- NOTE | 2025-03-31 09:06 | PHA.MEDREC ---
Addendum entered by Valerie Barbosa RPh 03/31/25 09:20: Reviewed by [facility] Original Note: Pharmacy Consult ? Medication Reconciliation Pharmacy has completed the medication reconciliation. Spoke to patient to confirm med list. Patient states she is no longer taking Gabapentin 100 mg, Omeprazole 20 mg (on nexium), Zofran 4 mg, and Prednisone taper dose has been completed. Patient last had her medications yesterday.
--- NOTE | 2025-03-31 10:47 | MHC.CM.PN ---
Met with pt to review d/c planning needs: pt has had a period of health complications necessitating several hospital admissions, STR placement and home services. She states she resides alone, works and drives at baseline. Pt just d/c'd from [facility] and states she had a very negative experience and does not wish to return to any STR centers. She is active with [facility] and would like to d/c to home w/continued services. Pt uses a walker and can manage her own ostomy. Her brother will transport her to home. Referred to [facility] HCP on file and verified: IMM in chart. PCP Smooth
[2025-03-31 12:48] LABS: Hematocrit 22.5 % (37.0-47.0); Hemoglobin 7.9 g/dl (12.0-16.0); Mean Corpuscular HGB Conc 35.1 g/dl (31.0-35.0); Mean Corpuscular Hemoglobin 29.8 pg (27.0-33.0); Mean Corpuscular Volume 84.9 fL (80.0-98.0); NRBC Abs Auto 0.000 X10*3/uL (0.0-0.012); NRBC Pct Auto 0.0 /100WBC (0.0-0.2); Platelet Count 181 X10*3/uL (160-400); Red Blood Count 2.65 X10*6/uL (4.20-5.50); White Blood Count 14.7 X10*3/uL (4.8-10.8)
[2025-03-31 13:00] LABS: Anion Gap 17 (12-20); Blood Urea Nitrogen 44 mg/dL (9-16); Calcium 7.7 mg/dL (8.4-10.2); Carbon Dioxide 22 mmol/L (22-29); Chloride 98 mmol/L (96-108); Creatinine Clr Calc Pharmacy 18.4; Estimated Glomerular Filt Rate 17; Magnesium 2.8 mg/dL (1.6-2.6); Potassium 3.8 mmol/L (3.3-5.1); Sodium 133 mmol/L (135-145)
[2025-03-31] MEDS: Lactated Ringers 1,000 ML 150 ML IVCONT ×2 (14:29→20:45)
[2025-03-31 16:47] LABS: Anion Gap 15 (12-20); Blood Urea Nitrogen 42 mg/dL (9-16); Calcium 8.2 mg/dL (8.4-10.2); Carbon Dioxide 23 mmol/L (22-29); Chloride 97 mmol/L (96-108); Creatinine Clr Calc Pharmacy 21.4; Estimated Glomerular Filt Rate 20; Potassium 3.3 mmol/L (3.3-5.1); Sodium 132 mmol/L (135-145)
--- NOTE | 2025-03-31 19:57 | PC.NURSE ---
Assumed care of patient at 0700: Neuro: Patient alert +Ox4, drowsy at times after pain medication Cardiac: SR with Occ PAC?s on Tele, +1 edema noted to arms and legs bilaterally, BP elevated,Nitro titrated as per protocol, See MAR for full details, unable to titrate off.? Resp: LS ins Diminished TA, on RA, no cough or SOB noted GI/: patient NPO this morning and switched to Clear liquid diet this afternoon? Integumentary/Musculoskeletal: patient complaining of weakness and feeling bad all around, see skin assessment for full details.
[2025-03-31 21:32] LABS: Glucose, Whole Blood 93 mg/dL (60-115)
[2025-04-01] VITALS (37 sets, daily range): BP systolic 79–134; BP diastolic 45–68; PULSE 72–105; RESP 12–19; TEMP 37.9–38.8; O2SAT 92–100; BMI 24.9
[2025-04-01] MEDS: Lactated Ringers 1,000 ML 150 ML IVCONT (02:44)
[2025-04-01 05:30] LABS: MANUAL DIFF FLAG NO
[2025-04-01 05:34] LABS: Hematocrit 24.4 % (37.0-47.0); Hemoglobin 8.3 g/dl (12.0-16.0); Imm Gran Abs Auto 0.05 X10*3/uL (0.00-0.03); Imm Gran Pct Auto 0.5 % (0.0-0.4); Lymphocytes Absolute Auto 1.0 X10*3/uL (1.2-4.9); Mean Corpuscular HGB Conc 34.0 g/dl (31.0-35.0); Mean Corpuscular Hemoglobin 28.8 pg (27.0-33.0); Mean Corpuscular Volume 84.7 fL (80.0-98.0); NRBC Abs Auto 0.000 X10*3/uL (0.0-0.012); NRBC Pct Auto 0.0 /100WBC (0.0-0.2); Platelet Count 168 X10*3/uL (160-400); Red Blood Count 2.88 X10*6/uL (4.20-5.50); White Blood Count 11.1 X10*3/uL (4.8-10.8)
[2025-04-01 05:53] LABS: Alanine Aminotransferase 17 U/L (0-31); Albumin Level 3.7 g/dL (3.5-5.0); Alkaline Phosphatase 119 U/L (39-117); Anion Gap 13 (12-20); Aspartate Amino Transferase 26 U/L (5-31); Blood Urea Nitrogen 30 mg/dL (9-16); Calcium 8.0 mg/dL (8.4-10.2); Carbon Dioxide 22 mmol/L (22-29); Chloride 101 mmol/L (96-108); Creatinine Clr Calc Pharmacy 28.3; Estimated Glomerular Filt Rate 28; Magnesium 2.0 mg/dL (1.6-2.6); Potassium 3.1 mmol/L (3.3-5.1); Sodium 133 mmol/L (135-145); Total Protein 6.0 g/dL (6.5-8.0)
[2025-04-01] MEDS: Potassium Phosphate/NS 15 MMOL/250 ML PLAST..BAG 62.5 MMOL IV ×2 (07:48→11:52)
--- NOTE | 2025-04-01 08:27 | P.PNCC_ITS ---
Subjective Subjective Date of Service: 04/01/25 Interval History: Complains of pain, increasing pain medication requirement Critical Care Time (minutes): 35 Physical Exam 2 Exam: Exam: General: In minimal acute distress, chronically ill appearing and tired appearing Nutritional Appearance: well nourished and overweight Eyes: appearance normal, both eyes and all related structures; Alignment and Position: alignment normal and position normal Neck: No lymphadenopathy, no thyromegaly Resp: bilateral air entry equal, occasional added sounds present Cardio: Regular rate, regular rhythm; Heart sounds: S1 normal heart sound present and S2 normal heart sound present GI: soft, nontender, no guarding, no hepatosplenomegaly : bladder normal to inspection, bladder normal to palpation, no renal angle tenderness Skin: no rashes or lesions noted and elasticity normal Neuro: oriented to person, oriented to place, oriented to time and moves all extremities Vital Signs: Vital Signs: Last Vital Signs Temp 100.8 F H 04/01/25 08:00 Pulse 105 H 04/01/25 08:05 Resp 18 04/01/25 08:00 BP 119/56 L 04/01/25 08:05 Pulse Ox 100 04/01/25 08:00 O2 Del Method Room Air 04/01/25 08:00 BMI result Body Mass Index 24.9 Objective Data Labs 04/01/25 04:53 04/01/25 04:53 Labs: Laboratory Results - last 24 hr 03/31/25 03/31/25 03/31/25 12:21 16:10 21:29 WBC 14.7 H RBC 2.65 L Hgb 7.9 L Hct 22.5 L MCV 84.9 MCH 29.8 MCHC 35.1 H RDW 14.4 Plt Count 181 MPV 10.0 Immature Gran % (Auto) Neut % (Auto) Lymph % (Auto) [place] % (Auto) Eos % (Auto) Baso % (Auto) Lymph # (Auto) [place] # (Auto) Eos # (Auto) Baso # (Auto) Abs Immat Gran (auto) Absolute Neuts (auto) Absolute Nucleated RBC 0.000 Nucleated RBC % (auto) 0.0 Sodium 133 L 132 L Potassium 3.8 3.3 Chloride 98 97 Carbon Dioxide 22 23 Anion Gap 17 15 BUN 44 H 42 H Creatinine 2.77 H 2.38 H Estim Creat Clear Calc 18.4 21.4 Estimated GFR 17 20 POC Glucose 93 Random Glucose 89 120 H Calcium 7.7 L 8.2 L D Phosphorus Magnesium 2.8 H Total Bilirubin AST ALT Alkaline Phosphatase Total Protein Albumin Beta-Hydroxybutyrate 1.66 H 04/01/25 04:53 WBC 11.1 H RBC 2.88 L Hgb 8.3 L Hct 24.4 L MCV 84.7 MCH 28.8 MCHC 34.0 RDW 14.6 Plt Count 168 MPV 9.8 Immature Gran % (Auto) 0.5 H Neut % (Auto) 81.1 H Lymph % (Auto) 9.4 L [place] % (Auto) 6.8 Eos % (Auto) 1.9 Baso % (Auto) 0.3 Lymph # (Auto) 1.0 L [place] # (Auto) 0.8 Eos # (Auto) 0.2 Baso # (Auto) 0.0 Abs Immat Gran (auto) 0.05 H Absolute Neuts (auto) 9.0 H Absolute Nucleated RBC 0.000 Nucleated RBC % (auto) 0.0 Sodium 133 L Potassium 3.1 L Chloride 101 Carbon Dioxide 22 Anion Gap 13 BUN 30 H Creatinine 1.80 H Estim Creat Clear Calc 28.3 Estimated GFR 28 POC Glucose Random Glucose 87 Calcium 8.0 L Phosphorus 2.2 L Magnesium 2.0 Total Bilirubin 0.6 AST 26 ALT 17 Alkaline Phosphatase 119 H Total Protein 6.0 L Albumin 3.7 Beta-Hydroxybutyrate Microbiology Microbiology Results: Microbiology 03/30/25 14:45 Blood - Venous Blood Culture - Preliminary No growth after 24 hours. 03/30/25 14:34 Blood - Venous Blood Culture - Preliminary No growth after 24 hours. Progress Note: A&P Assessment and plan (1) CAD (coronary artery disease): Status: Acute (2) Atrial flutter: Status: Acute (3) MARKIE (acute kidney injury): Status: Acute (4) Acute cholecystitis: Status: Acute Plan Cardiac: Septic Shock: Possibly secondary to intra-abdominal infection On Levophed support down to 0.05, titrate Levophed to keep map above 65 mm Hg. We will add midodrine on dilaudid 1mg q4h for pain. at home she is on PO 2mg q4h Atrial flutter/ AFib,? pericardial effusion, coronary artery disease: Currently in sinus rhythm, rate controlled On Eliquis at home, currently only on prophylacitc heparin as she might be needing procedure and she is in sinus rhythm. GI: CT abdomen showing possible acute cholecystitis versus gallbladder sludge. We will get ultrasound of the liver, if inconsistent we will get HIDA scan. There is also parastomal right lower quadrant hernia with a collection around it suggestive of incarcerated bowel loop versus hematoma versus abscess. She has history of perfeorated colon due to divertiulitis s/p colectomy in the past with hernia repair and revision colostomy converted to ileostomy at [facility] [place] (01/07/2025), intra-abdominal abscess/Finegoldia bacteremia (drained at [facility] in February 2025 and completed abx therapy). She had admission 02/28/2025 to 03/18/2025? for concern of cholecystitis,? HIDA was negative,? acute pancreatitis, anemia and rectovaginal fistula, s/p uterine artery embolization for bleeding fibroid. General surgery consulted, opined for conservative management- started on clear liquid diet yesterday Renal: Acute kidney injury possibly secondary to ATN from shock Baseline creatinine normal, creatinine peaked at 3.4- now down to 1.8 We will closely monitor I's and O's Avoid nephrotoxic medications Acute hyponatremia: improving, sodium up to 133 this morning Heme: Chronic anemia, closely monitor H&H, transfuse for hemoglobin less than 7 grams/deciliter Endocrine: Blood sugars under control Sliding scale insulin as needed Infectious disease: Pancultures pending, urinalysis dirty reflexed to cultures. WBC trending down to 11k On empiric Zosyn Musculoskeletal: Decubitus ulcer prevention protocol Lines: Right IJ TLC Erwin for retention Prophylaxis: Heparin, pantoprazole Quality Stroke Does the patient have a stroke diagnosis?: No VTE Prior VTE?: No VTE Risk Level:: Medical - moderate - high VTE Device Contraindication: N/A - Device Ordered VTE Drug Contraindication: N/A - Med Ordered
[2025-04-01] MEDS: Lactated Ringers 1,000 ML 100 ML IVCONT ×2 (09:25→19:27)
[2025-04-01 09:28] LABS: MRSA Nasal PCR NEGATIVE (Negative); SA Nasal PCR NEGATIVE (Negative)
[2025-04-01] MEDS: Lipase/Prot/Amylase 12/38/60K CAPSULE.DR 3 CAP PO ×2 (11:52→17:01)
--- NOTE | 2025-04-01 17:44 | PC.NURSE ---
Assumed care at 0700- pt. remains on levophed gtt, titrated per NOV. Pt. A&Ox4, c/o chronic back pain. PRN dilaudid given per NOV with good effect per pt. SR on tele, HR 70s-100s. Pt. on RA, O2 sats >92%. Tolerating clear liquid diet, c/o mild nausea at approx. 1700- MD notified and PRN zofran ordered and given per NOV. Ostomy appliance changed independently by pt. with this RN at bedside to assess stoma- see ostomy care flowsheet. Erwin remains in place draining cyu. Tmax this shift 101.1- MD aware. Pt. repositioning self and making needs known, updated by this RN and MD. Plan of care ongoing.
[2025-04-01 20:26] LABS: Alanine Aminotransferase 13 U/L (0-31); Albumin Level 3.3 g/dL (3.5-5.0); Alkaline Phosphatase 124 U/L (39-117); Anion Gap 13 (12-20); Aspartate Amino Transferase 25 U/L (5-31); Blood Urea Nitrogen 21 mg/dL (9-16); Calcium 7.8 mg/dL (8.4-10.2); Carbon Dioxide 22 mmol/L (22-29); Chloride 100 mmol/L (96-108); Creatinine Clr Calc Pharmacy 42.1; Estimated Glomerular Filt Rate 44; Potassium 3.1 mmol/L (3.3-5.1); Sodium 132 mmol/L (135-145); Total Protein 5.6 g/dL (6.5-8.0)
[2025-04-02] VITALS (36 sets, daily range): BP systolic 90–137; BP diastolic 42–92; PULSE 55–100; RESP 11–21; TEMP 36.6–38.8; O2SAT 93–98; BMI 26.1
--- NOTE | 2025-04-02 04:50 | PC.NURSE ---
Assumed care of patient at 1900. A/Ox4, pleasant. SR on telemetry. Pain management per MAR , Dilaudid ordered with good effect. +1 edema to bilateral ankles, and upper extremities. Patient on room air. LS dim in the bases. Levophed gtt infusing per NOV orders. Patient NPO after midnight , scheduled for procedure in IR today. Ileostomy RLQ /liquid drainage noted. Abdomen lg/round /tender,+ BSx4. Erwin catheter in place , draining CYU. Patient resting comfortably , able to make needs known. Purposeful rounding performed.
[2025-04-02] MEDS: Lactated Ringers 1,000 ML 100 ML IVCONT (05:15)
[2025-04-02 05:55] LABS: MANUAL DIFF FLAG NO
[2025-04-02 06:01] LABS: Hematocrit 24.9 % (37.0-47.0); Hemoglobin 8.3 g/dl (12.0-16.0); Imm Gran Abs Auto 0.06 X10*3/uL (0.00-0.03); Imm Gran Pct Auto 0.5 % (0.0-0.4); Lymphocytes Absolute Auto 1.3 X10*3/uL (1.2-4.9); Mean Corpuscular HGB Conc 33.3 g/dl (31.0-35.0); Mean Corpuscular Hemoglobin 28.8 pg (27.0-33.0); Mean Corpuscular Volume 86.5 fL (80.0-98.0); NRBC Abs Auto 0.000 X10*3/uL (0.0-0.012); NRBC Pct Auto 0.0 /100WBC (0.0-0.2); Platelet Count 155 X10*3/uL (160-400); Red Blood Count 2.88 X10*6/uL (4.20-5.50); White Blood Count 12.0 X10*3/uL (4.8-10.8)
[2025-04-02 06:17] LABS: Alanine Aminotransferase 11 U/L (0-31); Albumin Level 2.9 g/dL (3.5-5.0); Alkaline Phosphatase 132 U/L (39-117); Anion Gap 13 (12-20); Aspartate Amino Transferase 21 U/L (5-31); Blood Urea Nitrogen 19 mg/dL (9-16); Calcium 7.4 mg/dL (8.4-10.2); Carbon Dioxide 24 mmol/L (22-29); Chloride 101 mmol/L (96-108); Creatinine Clr Calc Pharmacy 47.9; Estimated Glomerular Filt Rate 51; Sodium 135 mmol/L (135-145); Total Protein 5.1 g/dL (6.5-8.0)
[2025-04-02 06:20] LABS: Magnesium 1.4 mg/dL (1.6-2.6); Potassium 2.7 mmol/L (3.3-5.1)
[2025-04-02 06:25] LABS: INTERNATIONAL NORM RATIO 1.6 (0.9-1.1); Prothrombin Time 18.8 SEC (10.9-12.4)
[2025-04-02] MEDS: Potassium Chloride/H20 40 MEQ/100 ML PIGGYBACK 100 MEQ IV ×2 (06:53→08:02)
[2025-04-02] MEDS: Magnesium Sulfate/H2O 2 GM/50 ML PIGGYBACK IV (07:26)
[2025-04-02] MEDS: 0.9 % Sodium Chloride Flush 10 ML SYRINGE IVFLUSH ×3 (07:27→22:06)
[2025-04-02] MEDS: Sodium,Potassium Phosphates POWD.PACK 2 PACKET PO (08:02)
--- NOTE | 2025-04-02 08:25 | PM.CCPN ---
Subjective Subjective Date of Service: 04/02/25 Interval History: on small dose of levophed this morning NPO since midnight for possible cholecystostomy tube placement Critical Care Time (minutes): 35 Physical Exam Vital Signs: Vital Signs: Last Vital Signs Temp 101.5 F H 04/02/25 08:00 Pulse 100 04/02/25 08:00 Resp 20 04/02/25 08:00 BP 100/52 L 04/02/25 08:02 Pulse Ox 97 04/02/25 08:00 O2 Del Method Room Air 04/02/25 08:00 BMI result Body Mass Index 26.1 General: Elderly lady in no acute distress, she is chronically ill appearing and tired appearing Nutritional Appearance: Okay nourished and normal weight Eyes: appearance normal, both eyes and all related structures; Alignment and Position: alignment normal and position normal Neck: No lymphadenopathy, no thyromegaly Resp: bilateral air entry equal, occasional added sounds present Cardio: Regular rate, regular rhythm; Heart sounds: S1 normal heart sound present and S2 normal heart sound present GI: soft, nontender, no guarding, no hepatosplenomegaly : bladder normal to inspection, bladder normal to palpation, no renal angle tenderness Skin: no rashes or lesions noted and elasticity normal Neuro: oriented to person, oriented to place, oriented to time and moves all extremities Objective Data Labs 04/02/25 05:23 04/02/25 05:23 Labs: Laboratory Results - last 24 hr 03/31/25 04/01/25 04/02/25 21:30 20:04 05:23 WBC 12.0 H RBC 2.88 L Hgb 8.3 L Hct 24.9 L MCV 86.5 MCH 28.8 MCHC 33.3 RDW 14.8 Plt Count 155 L MPV 9.9 Immature Gran % (Auto) 0.5 H Neut % (Auto) 79.2 H Lymph % (Auto) 11.0 L Gem % (Auto) 7.2 Eos % (Auto) 1.5 Baso % (Auto) 0.6 Lymph # (Auto) 1.3 Gem # (Auto) 0.9 Eos # (Auto) 0.2 Baso # (Auto) 0.1 Abs Immat Gran (auto) 0.06 H Absolute Neuts (auto) 9.5 H Absolute Nucleated RBC 0.000 Nucleated RBC % (auto) 0.0 PT 18.8 H INR 1.6 H Sodium 132 L 135 Potassium 3.1 L 2.7 L* Chloride 100 101 Carbon Dioxide 22 24 Anion Gap 13 13 BUN 21 H 19 H Creatinine 1.23 1.08 Estim Creat Clear Calc 42.1 47.9 Estimated GFR 44 51 Random Glucose 95 97 Calcium 7.8 L 7.4 L Phosphorus 2.5 L Magnesium 1.4 L* Total Bilirubin 0.6 0.8 AST 25 21 ALT 13 11 Alkaline Phosphatase 124 H 132 H Total Protein 5.6 L 5.1 L Albumin 3.3 L 2.9 L Nasal Screen MRSA (PCR) NEGATIVE Nasal S. aureus Screen NEGATIVE Nasal MRSA/S.aureus Interp SEE NOTE Microbiology Microbiology Results: Microbiology 03/30/25 14:45 Blood - Venous Blood Culture - Preliminary No growth after 48 hours. 03/30/25 14:34 Blood - Venous Blood Culture - Preliminary No growth after 48 hours. 03/30/25 21:54 Urine Catheterized - Straight Catheter Urine Culture - Preliminary Gram positive cocci Progress Note: A&P Assessment and plan (1) Acute hypotension: Status: Acute (2) Acute cholecystitis: Status: Acute (3) MARKIE (acute kidney injury): Status: Acute (4) Acute hypokalemia: Status: Acute (5) Hypomagnesemia: Status: Acute Plan Cardiac: Septic Shock: Possibly secondary to intra-abdominal infection On Levophed support down to 0.05, titrate Levophed to keep map above 65 mm Hg. On midodrine 10mg TID to assist weaning pressors on dilaudid 0.75mg q4h for pain. at home she is on PO 2mg q4h Atrial flutter/ AFib,? pericardial effusion, coronary artery disease: Currently in sinus rhythm, rate controlled On Eliquis at home, currently only on prophylacitc heparin as she is needing a procedure and she is in sinus rhythm. GI: CT abdomen showing possible acute cholecystitis versus gallbladder sludge. There is also parastomal right lower quadrant hernia with a collection around it suggestive of incarcerated bowel loop versus hematoma versus abscess. She has history of perforated colon due to divertiulitis s/p colectomy in the past with hernia repair and revision colostomy converted to ileostomy at [facility] (01/07/2025), intra-abdominal abscess/Finegoldia bacteremia (drained at [facility] in February 2025 and completed abx therapy). She had admission 02/28/2025 to 03/18/2025? for concern of cholecystitis,? HIDA was negative,? acute pancreatitis, anemia and rectovaginal fistula, s/p uterine artery embolization for bleeding fibroid. General surgery consulted,planned for cholecystostomy tube placement today started on clear liquid diet yesterday tolerating well, currently NPO Renal: Acute kidney injury possibly secondary to ATN from shock Baseline creatinine normal, creatinine peaked at 3.4- now down to 1.08 We will closely monitor I's and O's Avoid nephrotoxic medications Acute hypokalemia/acute hypomagnesemia and hypophosphatemia: will replace as per protocol and repeat labs Heme: Chronic anemia, closely monitor H&H, transfuse for hemoglobin less than 7 grams/deciliter Endocrine: Blood sugars under control Sliding scale insulin as needed Infectious disease: Pancultures pending, urinalysis dirty reflexed to cultures. WBC 12k Infectious disease consulted given her recurrent infections. On empiric Zosyn Musculoskeletal: Decubitus ulcer prevention protocol Lines: Right IJ TLC Erwin for retention Prophylaxis: Heparin, pantoprazole Quality Stroke Does the patient have a stroke diagnosis?: No VTE Prior VTE?: No VTE Risk Level:: Medical - moderate - high VTE Device Contraindication: N/A - Device Ordered VTE Drug Contraindication: N/A - Med Ordered
--- NOTE | 2025-04-02 10:28 | PM.PNGS ---
Subjective Subjective Date of Service: 04/02/25 <Gabi Victoria PA-C - Last Filed: 04/02/25 10:34> 04/02/25 <Alvaro nOeil MD - Last Filed: 04/02/25 11:40> Interval history: Remains on pressors. Denies significant abd pain. <Gabi Victoria PA-C - Last Filed: 04/02/25 10:34> Physical Exam Vital Signs: Vital Signs: Last Vital Signs Temp 101.8 F H 04/02/25 10:00 Pulse 84 04/02/25 10:00 Resp 20 04/02/25 10:00 BP 98/47 L 04/02/25 10:00 Pulse Ox 95 04/02/25 10:00 O2 Del Method Room Air 04/02/25 10:00 BMI result Body Mass Index 26.1 <Gabi Victoria PA-C - Last Filed: 04/02/25 10:34> Const: General: comfortable, alert and tired appearing <Gabi Victoria PA-C - Last Filed: 04/02/25 10:34> Orientation/consciousness: patient oriented x3 <Gabi Victoria PA-C - Last Filed: 04/02/25 10:34> Resp: Effort & Inspection: normal respiratory effort <Gabi Victoria PA-C - Last Filed: 04/02/25 10:34> GI: Other: increasingly tender in the RUQ <Gabi Victoria PA-C - Last Filed: 04/02/25 10:34> Palpation (GI): Soft to palpation, no guarding and not rigid <Gabi Victoria PA-C - Last Filed: 04/02/25 10:34> Skin: General skin exam: no jaundice <Gabi Victoria PA-C - Last Filed: 04/02/25 10:34> Neuro: General: patient oriented x3 and moves all extremities <STAN Wilder Last Filed: 04/02/25 10:34> Objective Data Active Medications Amiodarone HCl (Amiodarone Hcl 200 Mg Tablet) 200 mg PO DAILY [facility] Last Admin: 04/02/25 08:02 Dose: 200 mg Documented By: GABRIELA Lipase/Protease/Amylase (Lipase/Prot/Amylase /[address] 3 cap PO TIDWM [facility] Last Admin: 04/02/25 08:53 Dose: Not Given Documented By: GABRIELA Non-Admin Reason: NPO Atorvastatin Calcium (Atorvastatin Calcium 20 Mg Tablet) 20 mg PO BEDTIME [facility] Last Admin: 04/01/25 20:13 Dose: 20 mg Documented By: GILBERT Carisoprodol (Carisoprodol 350 Mg Tablet) 350 mg PO BEDTIME [facility] Last Admin: 04/01/25 20:14 Dose: Not Given Documented By: GILBERT Non-Admin Reason: Patient Refused Colchicine (Colchicine 0.6 Mg Tablet) 0.6 mg PO DAILY [facility] Last Admin: 04/02/25 08:02 Dose: 0.6 mg Documented By: GABRIELA Hydromorphone HCl (Hydromorphone Hcl 0.5 Mg/0.5 Ml Syringe) 0.75 mg IVPUSH Q4H PRN; Protocol PRN Reason: Pain, Severe (Pain Scale 7-10) Last Admin: 04/01/25 20:16 Dose: 0.75 mg Documented By: GILBERT Lactated Ringer's (Lr) 1,000 mls @ 80 mls/hr IVCONT .[id number] [facility] On Hold: 03/31/25 00:34 Last Infusion: 03/31/25 00:33 Dose: Infused Documented By: SOFIA Norepinephrine Bitartrate (Levophed) 8 mg in 250 mls @ 0 mls/hr IVCONT .Q0M [facility]; Protocol Last Titration: 04/02/25 05:25 Dose: 0.02 mcg/kg/min, 2.09 mls/hr Documented By: GILBERT Lactated Ringer's (Lr) 1,000 mls @ 100 mls/hr IVCONT .Q10H [facility] Last Admin: 04/02/25 05:38 Dose: Not Given Documented By: GILBERT Non-Admin Reason: IV Running Piperacillin Sod/Tazobactam (Sod 4.5 gm/ Sodium Chloride) 100 mls @ 200 mls/hr IV Q6H [facility] Acetaminophen (Ofirmev) 1,000 mg in 100 mls @ 400 mls/hr IV ONCE ONE Stop: 04/02/25 10:38 Midodrine (Midodrine Hcl 10 Mg Tablet) 10 mg PO TID [facility] Last Admin: 04/02/25 08:02 Dose: 10 mg Documented By: GABRIELA Mirtazapine (Mirtazapine 15 Mg Tablet) 15 mg PO BEDTIME [facility] Last Admin: 04/01/25 20:13 Dose: 15 mg Documented By: GILBERT Ondansetron HCl (Ondansetron Hcl 4 Mg/2 Ml Vial) 4 mg IVPUSH Q6H PRN PRN Reason: Nausea and Vomiting Last Admin: 04/01/25 16:59 Dose: 4 mg Documented By: KENROY Sodium Chloride (0.9 % Sodium Chloride Flush 10 Ml Syringe) 10 ml IVFLUSH QSHIFT [facility] Last Admin: 04/02/25 07:27 Dose: 10 ml Documented By: GABRIELA <Gabi Vcitoria PA-C - Last Filed: 04/02/25 10:34> Labs CBC & Chem 7: 04/02/25 05:23 04/02/25 05:23 <Gabi Victoria PA-C - Last Filed: 04/02/25 10:34> Labs: Laboratory Results - last 24 hr 04/01/25 04/02/25 20:04 05:23 MCV 86.5 MCH 28.8 MCHC 33.3 RDW 14.8 Plt Count 155 L MPV 9.9 Immature Gran % (Auto) 0.5 H Neut % (Auto) 79.2 H Lymph % (Auto) 11.0 L [place] % (Auto) 7.2 Eos % (Auto) 1.5 Baso % (Auto) 0.6 Lymph # (Auto) 1.3 [place] # (Auto) 0.9 Eos # (Auto) 0.2 Baso # (Auto) 0.1 Abs Immat Gran (auto) 0.06 H Absolute Neuts (auto) 9.5 H Absolute Nucleated RBC 0.000 Nucleated RBC % (auto) 0.0 PT 18.8 H INR 1.6 H Anion Gap 13 13 Estim Creat Clear Calc 42.1 47.9 Estimated GFR 44 51 Random Glucose 95 97 Calcium 7.8 L 7.4 L Phosphorus 2.5 L Magnesium 1.4 L* Total Bilirubin 0.6 0.8 AST 25 21 ALT 13 11 Alkaline Phosphatase 124 H 132 H Total Protein 5.6 L 5.1 L Albumin 3.3 L 2.9 L <Gabi Victoria PA-C - Last Filed: 04/02/25 10:34> Microbiology Microbiology Results: Microbiology 03/30/25 21:54 Urine Culture - Preliminary Urine Catheterized - Straight Catheter Enterococcus faecium Gram negative antoni 03/30/25 14:45 Blood Culture - Preliminary Blood - Venous No growth after 48 hours. 03/30/25 14:34 Blood Culture - Preliminary Blood - Venous No growth after 48 hours. <Gabi Victoria PA-C - Last Filed: 04/02/25 10:34> Procedures Date of Service Date of Service: 04/02/25 <Gabi Victoria PA-C - Last Filed: 04/02/25 10:34> 04/02/25 <Alvaro Oneil MD - Last Filed: 04/02/25 11:40> Progress Note: A&P Assessment and plan (1) Acute cholecystitis: Status: Acute <Gabi Victoria PA-C - Last Filed: 04/02/25 10:34> Assessment and Plan: Remains on pressors. Febrile. WBC hovering at 12. RUQ is increasingly tender now concerning for worsening acute cholecystitis without improvement with IV abx. Keep NPO. Will order for cholecystostomy tube today. <Gabi Victoria PA-C - Last Filed: 04/02/25 10:34> Remains on pressors. Febrile. WBC hovering at 12. RUQ is increasingly tender now concerning for worsening acute cholecystitis without improvement with IV abx. Keep NPO. Will order for cholecystostomy tube today. Increased tenderness in RUQ; agree with proceeding to cholecystostomy tube placement in IR. <Alvaro Oneil MD - Last Filed: 04/02/25 11:40> Time Spent With Patient Time: Total time managing care of this patient today ____ minutes. <Gabi Victoria PA-C - Last Filed: 04/02/25 10:34> Quality Stroke Does the patient have a stroke diagnosis?: No <Gabi Victoria PA-C - Last Filed: 04/02/25 10:34> VTE Prior VTE?: No <Gabi Victoria PA-C - Last Filed: 04/02/25 10:34> VTE Risk Level:: Medical - moderate - high <Gabi Victoria PA-C - Last Filed: 04/02/25 10:34> VTE Device Contraindication: N/A - Device Ordered <Gabi Victoria PA-C - Last Filed: 04/02/25 10:34> VTE Drug Contraindication: N/A - Med Ordered <Gabi Victoria PA-C - Last Filed: 04/02/25 10:34>
--- NOTE | 2025-04-02 10:29 | P.CDIM_ITS ---
PROVIDER RESPONSE TEXT: To clarify, the appropriate diagnosis supported by the clinical indicators: Paroxysmal atrial fibrillation QUERY TEXT: PHYSICIAN'S DOCUMENTATION REQUEST Date of Query: 04/02/2025 08:57 AM EDT Patient Name: Kia Phelps Admit Date: 03/30/2025 Dear Roni Higgins MD, A review of the medical record indicates additional documentation may be needed. Please review below and update the documentation accordingly. Clinical Indicators: ICU progress note 04/02/25 : Atrial fibrillation, currently sinus rhythm, rate controlled. On Eliquis at home. If possible, please provide further specificity regarding atrial fibrillation, such as: Paroxysmal atrial fibrillation Persistent atrial fibrillation Long lasting persistent atrial fibrillation Chronic or Permanent atrial fibrillation Other (explain) Clinically unable to determine (explain) Thank you, Karen Bourne, CCS, CDIS Use of terms such as suspected, likely, concern for, or probable (associated with a specific diagnosis that is being evaluated, monitored, or treated as if it exists) are acceptable and can be coded in the inpatient setting, when documented at the time of discharge. Please use your independent medical judgment in providing your response. THIS QUERY IS PART OF THE PERMANENT MEDICAL RECORD
--- NOTE | 2025-04-02 12:11 | P.CDIM_ITS ---
PROVIDER RESPONSE TEXT: To clarify, the appropriate diagnosis supported by the clinical indicators: Clinically unable to determine (explain): unable QUERY TEXT: PHYSICIAN'S DOCUMENTATION REQUEST Date of Query: 04/02/2025 11:41 AM EDT Patient Name: Kia Phelps Admit Date: 03/30/2025 Dear Roni Higgins MD, A review of the medical record indicates additional documentation may be needed. Please review below and update the documentation accordingly. Clinical Indicators: ICU H&P dated 03/30/25 - 65 year old female with past medical history HTN, HLD, CAD, Congestive heart failure. Generalized weakness, poor po intake, hypotensive to systolic of 70's with no response with crystalloids. 2+ pulses upper and lower extremity distally. Past history Echo performed BNP 64 Please provide further specificity regarding the most likely type and acuity of CHF that is documented within the medical record: Systolic Please specify if Acute, Chronic, or Acute on chronic, or Unable to determine Diastolic Please specify if Acute, Chronic, or Acute on chronic, or Unable to determine Combined Systolic/Diastolic Please specify if Acute, Chronic, or Acute on chronic, or Unable to determine After study CHF has been ruled out Other (explain) Clinically unable to determine (explain) Thank you, Karen Bourne, CCS, CDIS Use of terms such as suspected, likely, concern for, or probable (associated with a specific diagnosis that is being evaluated, monitored, or treated as if it exists) are acceptable and can be coded in the inpatient setting, when documented at the time of discharge. Please use your independent medical judgment in providing your response. THIS QUERY IS PART OF THE PERMANENT MEDICAL RECORD
[2025-04-02] MEDS: Lidocaine HCl 1 % MPF 30 ML VIAL 10 ML SUBCUT (14:53)
--- NOTE | 2025-04-02 15:06 | MHC.CM.PN ---
PER MD ROUNDS, PT WILL HAVE A YVETTE TUBE PLACED TODAY, REMAINS IN ICU ON PRESSOR SUPPORT. CM WILL CONTINUE TO FOLLOW FOR DC PLAN.
[2025-04-02 15:38] LABS: Anion Gap 11 (12-20); Blood Urea Nitrogen 17 mg/dL (9-16); Calcium 7.8 mg/dL (8.4-10.2); Carbon Dioxide 24 mmol/L (22-29); Chloride 104 mmol/L (96-108); Creatinine Clr Calc Pharmacy 58.5; Estimated Glomerular Filt Rate 57; Magnesium 1.9 mg/dL (1.6-2.6); Potassium 3.7 mmol/L (3.3-5.1); Sodium 135 mmol/L (135-145)
[2025-04-02] MEDS: Linezolid/D5W 600 MG/300 ML PIGGYBACK 300 MG IV (16:14)
--- NOTE | 2025-04-02 18:01 | ECG_ITS ---
Test Reason : chest pain Blood Pressure : */* mmHG Vent. Rate : 70 BPM Atrial Rate : 70 BPM P-R Int : 176 ms QRS Dur : 74 ms QT Int : 476 ms P-R-T Axes : 48 -10 -13 degrees QTcB Int : 514 ms Normal sinus rhythm Low voltage QRS Nonspecific T wave abnormality Prolonged QT Abnormal ECG When compared with ECG of 31-Mar-2025 05:35, Premature ventricular complexes are no longer Present QT has shortened Referred By: Roni Higgins Electronically Signed By: SERGIO ISAACS MD
--- NOTE | 2025-04-02 18:59 | PC.NURSE ---
Assumed care at 0700. Pt A&Ox4. At approx 1000 pt?s temp noted to be elevated at 101.8. MD made aware. Acetaminophen administered. At approx 1320, pt taken for cholecystostomy drain. MIKI bulb-type drain with dark bilious drainage. During procedure, prn dilaudid was given. This video games storywriter pulled medication from pyxis, but it was administered and charted by OR nurse Lucille as dilaudid is not stocked in that particular pyxis. At approx 1800, pt had run of PVCs, lower heart rate, and complaint of chest pain. EKG showed normal sinus rhythm. made aware. See MAR and assessments for further details.
[2025-04-03] VITALS (17 sets, daily range): BP systolic 96–133; BP diastolic 48–69; PULSE 74–91; RESP 11–20; TEMP 36.2–37.9; O2SAT 93–100; BMI 26.1
[2025-04-03] MEDS: Linezolid/D5W 600 MG/300 ML PIGGYBACK 300 MG IV ×2 (03:30→15:48)
--- NOTE | 2025-04-03 04:39 | PC.NURSE ---
Upon initial assessment at 1999- pt A&Ox4, calm/cooperative, WESLEY. Tmax 100.2 via core bladder probe. NSR on tele, HR 70-80s. Remains off levophed gtt, BP > 90, MAP 65. SpO2 > 92% on room air. Tolerating small amount of ice chips, denies nausea. Ileostomy emptied. Cholecystostomy tube in place to RUQ, bilious output. C/o mostly abd/back pain, PRN Dilaudid given per NOV. Indwelling catheter in place, UOP approx 30 mL/hr. Pt refusing catheter to be removed for voiding trial- educated. R IJ TLC in place- pt refusing PIV placement- educated. Skin overall intact. Pt repositions self in bed. Bed locked in lowest position, alarm on, call beyer in reach. Pt aware of plan of care. See EMR/flowsheet for further details.
[2025-04-03 04:40] LABS: MANUAL DIFF FLAG NO
[2025-04-03 04:43] LABS: Hematocrit 25.5 % (37.0-47.0); Hemoglobin 8.2 g/dl (12.0-16.0); Imm Gran Abs Auto 0.08 X10*3/uL (0.00-0.03); Imm Gran Pct Auto 0.6 % (0.0-0.4); Lymphocytes Absolute Auto 1.1 X10*3/uL (1.2-4.9); Mean Corpuscular HGB Conc 32.2 g/dl (31.0-35.0); Mean Corpuscular Hemoglobin 28.6 pg (27.0-33.0); Mean Corpuscular Volume 88.9 fL (80.0-98.0); NRBC Abs Auto 0.000 X10*3/uL (0.0-0.012); NRBC Pct Auto 0.0 /100WBC (0.0-0.2); Platelet Count 155 X10*3/uL (160-400); Red Blood Count 2.87 X10*6/uL (4.20-5.50); White Blood Count 14.0 X10*3/uL (4.8-10.8)
[2025-04-03 04:58] LABS: Alanine Aminotransferase 9 U/L (0-31); Albumin Level 2.7 g/dL (3.5-5.0); Alkaline Phosphatase 143 U/L (39-117); Anion Gap 12 (12-20); Aspartate Amino Transferase 25 U/L (5-31); Blood Urea Nitrogen 15 mg/dL (9-16); Calcium 7.7 mg/dL (8.4-10.2); Carbon Dioxide 25 mmol/L (22-29); Chloride 102 mmol/L (96-108); Creatinine Clr Calc Pharmacy 60.9; Estimated Glomerular Filt Rate > 60; Magnesium 1.5 mg/dL (1.6-2.6); Potassium 3.0 mmol/L (3.3-5.1); Sodium 136 mmol/L (135-145); Total Protein 5.1 g/dL (6.5-8.0)
[2025-04-03] MEDS: Potassium Phosphate/NS 15 MMOL/250 ML PLAST..BAG 62.5 MMOL IV ×2 (06:36→10:45)
[2025-04-03] MEDS: Magnesium Sulfate/H2O 2 GM/50 ML PIGGYBACK IV (06:36)
[2025-04-03] MEDS: 0.9 % Sodium Chloride Flush 10 ML SYRINGE IVFLUSH (08:04)
[2025-04-03] MEDS: Lipase/Prot/Amylase 12/38/60K CAPSULE.DR 3 CAP PO ×3 (08:09→17:12)
--- NOTE | 2025-04-03 08:26 | PM.CCPN ---
Subjective Subjective Date of Service: 04/03/25 Interval History: Doing well this morning Underwent cholecystostomy tube placement yesterday off levophed support since last night Critical Care Time (minutes): 35 Physical Exam Exam: Exam: General: Elderly lady comfortably sitting in the bed Nutritional Appearance: well nourished and normal weight Eyes: appearance normal, both eyes and all related structures; Alignment and Position: alignment normal and position normal Neck: No lymphadenopathy, no thyromegaly Resp: bilateral air entry equal, occasional added sounds present Cardio: Regular rate, regular rhythm; Heart sounds: S1 normal heart sound present and S2 normal heart sound present GI: soft, nontender, no guarding, no hepatosplenomegaly : bladder normal to inspection, bladder normal to palpation, no renal angle tenderness Skin: no rashes or lesions noted and elasticity normal Neuro: oriented to person, oriented to place, oriented to time and moves all extremities Vital Signs: Vital Signs: Last Vital Signs Temp 99.1 F 04/03/25 08:00 Pulse 91 04/03/25 08:00 Resp 18 04/03/25 08:00 BP 104/57 L 04/03/25 08:09 Pulse Ox 96 04/03/25 08:00 O2 Del Method Room Air 04/03/25 08:00 BMI result Body Mass Index 26.1 Objective Data Labs 04/03/25 04:03 04/03/25 04:03 Labs: Laboratory Results - last 24 hr 04/02/25 04/03/25 14:54 04:03 WBC 14.0 H RBC 2.87 L Hgb 8.2 L Hct 25.5 L MCV 88.9 MCH 28.6 MCHC 32.2 RDW 15.2 Plt Count 155 L MPV 9.8 Immature Gran % (Auto) 0.6 H Neut % (Auto) 84.2 H Lymph % (Auto) 7.7 L [place] % (Auto) 5.0 Eos % (Auto) 1.9 Baso % (Auto) 0.6 Lymph # (Auto) 1.1 L [place] # (Auto) 0.7 Eos # (Auto) 0.3 Baso # (Auto) 0.1 Abs Immat Gran (auto) 0.08 H Absolute Neuts (auto) 11.8 H Absolute Nucleated RBC 0.000 Nucleated RBC % (auto) 0.0 Sodium 135 136 Potassium 3.7 D 3.0 L Chloride 104 102 Carbon Dioxide 24 25 Anion Gap 11 L 12 BUN 17 H 15 Creatinine 0.97 0.93 Estim Creat Clear Calc 58.5 60.9 Estimated GFR 57 > 60 Random Glucose 91 132 H Calcium 7.8 L 7.7 L Phosphorus 2.0 L 1.9 L Magnesium 1.9 1.5 L Total Bilirubin 0.9 AST 25 ALT 9 Alkaline Phosphatase 143 H Total Protein 5.1 L Albumin 2.7 L Microbiology Microbiology Results: Microbiology 03/30/25 21:54 Urine Catheterized - Straight Catheter Urine Culture - Final Enterococcus faecium Klebsiella pneumoniae 03/30/25 14:45 Blood - Venous Blood Culture - Preliminary No growth after 48 hours. 03/30/25 14:34 Blood - Venous Blood Culture - Preliminary No growth after 48 hours. Progress Note: A&P Assessment and plan (1) Acute hypotension: Status: Acute (2) Acute cholecystitis: Status: Acute (3) MARKIE (acute kidney injury): Status: Acute (4) Acute hypokalemia: Status: Acute (5) Hypomagnesemia: Status: Acute Plan Cardiac: Septic Shock: Possibly secondary to urinary tract infection. on dilaudid 0.75mg q4h for pain. at home she is on PO 2mg q4h Atrial flutter/ AFib,? pericardial effusion, coronary artery disease: Currently in sinus rhythm, rate controlled On Eliquis at home, currently only on prophylacitc heparin as she had cholecystostomy and she is in sinus rhythm needs to restart prior to discharge. GI: CT abdomen showing possible acute cholecystitis versus gallbladder sludge and parastomal right lower quadrant hernia with a collection around it suggestive of incarcerated bowel loop versus hematoma versus abscess. She has history of perforated colon due to divertiulitis s/p colectomy in the past with hernia repair and revision colostomy converted to ileostomy at [facility] (01/07/2025), intra-abdominal abscess/[place] bacteremia (drained at [facility] in February 2025 and completed abx therapy). She had admission 02/28/2025 to 03/18/2025? for concern of cholecystitis,? HIDA was negative,? acute pancreatitis, anemia and rectovaginal fistula, s/p uterine artery embolization for bleeding fibroid. General surgery consulted,underwent cholecystostomy tube placement yesterday, cultures pending on clear liquid diet Renal: Acute kidney injury possibly secondary to ATN from shock- resolved Baseline creatinine normal, creatinine peaked at 3.4- now down to 0.9 We will closely monitor I's and O's Avoid nephrotoxic medications Chronic hypokalemia/acute hypomagnesemia and hypophosphatemia: will replace as per protocol has been seeing renal for chronic hypokalemia and hypomagnesemia will place her on scheduled Kcl 40meq BID- which she refused to take this morning Heme: Chronic anemia, closely monitor H&H, transfuse for hemoglobin less than 7 grams/deciliter Endocrine: Blood sugars under control Sliding scale insulin as needed Infectious disease: urine culture growing Enterococcus and Klebsiella On Zosyn and Zyvox as per sensitivities; left on Zosyn due to concerns for intra-abdominal infection Infectious disease consulted given her recurrent infections. Musculoskeletal: Decubitus ulcer prevention protocol Lines: Right IJ TLC placed on 03/30/2025 to be removed by 04/10/2025. Erwin for retention Prophylaxis: Lovenox, pantoprazole Quality Stroke Does the patient have a stroke diagnosis?: No VTE Prior VTE?: No VTE Risk Level:: Medical - moderate - high VTE Device Contraindication: N/A - Device Ordered VTE Drug Contraindication: N/A - Med Ordered
[2025-04-03] MEDS: Potassium Chloride/H20 10 MEQ/100 ML PIGGYBACK 100 MEQ IV ×4 (13:11→16:41)
--- NOTE | 2025-04-03 13:15 | PC.NURSE ---
pt refusing bed alarm
[2025-04-04] VITALS (10 sets, daily range): BP systolic 109–133; BP diastolic 58–69; PULSE 69–82; RESP 16–18; TEMP 36.7–37.5; O2SAT 96–98
[2025-04-04] MEDS: Linezolid/D5W 600 MG/300 ML PIGGYBACK 300 MG IV (04:24)
[2025-04-04 07:08] LABS: MANUAL DIFF FLAG NO
[2025-04-04 07:30] LABS: Hematocrit 24.7 % (37.0-47.0); Hemoglobin 8.3 g/dl (12.0-16.0); Imm Gran Abs Auto 0.09 X10*3/uL (0.00-0.03); Imm Gran Pct Auto 0.7 % (0.0-0.4); Lymphocytes Absolute Auto 1.5 X10*3/uL (1.2-4.9); Mean Corpuscular HGB Conc 33.6 g/dl (31.0-35.0); Mean Corpuscular Hemoglobin 29.1 pg (27.0-33.0); Mean Corpuscular Volume 86.7 fL (80.0-98.0); NRBC Abs Auto 0.000 X10*3/uL (0.0-0.012); NRBC Pct Auto 0.0 /100WBC (0.0-0.2); Platelet Count 153 X10*3/uL (160-400); Red Blood Count 2.85 X10*6/uL (4.20-5.50); White Blood Count 13.7 X10*3/uL (4.8-10.8)
[2025-04-04 07:58] LABS: Anion Gap 11 (12-20); Blood Urea Nitrogen 12 mg/dL (9-16); Calcium 7.6 mg/dL (8.4-10.2); Carbon Dioxide 23 mmol/L (22-29); Chloride 104 mmol/L (96-108); Creatinine Clr Calc Pharmacy 75.6; Estimated Glomerular Filt Rate > 60; Magnesium 1.4 mg/dL (1.6-2.6); Potassium 3.6 mmol/L (3.3-5.1); Sodium 134 mmol/L (135-145)
[2025-04-04] MEDS: Lipase/Prot/Amylase 12/38/60K CAPSULE.DR 3 CAP PO ×3 (09:07→17:07)
[2025-04-04] MEDS: 0.9 % Sodium Chloride Flush 10 ML SYRINGE IVFLUSH ×3 (09:08→21:22)
--- NOTE | 2025-04-04 10:08 | PM.PNGS ---
Subjective Subjective Date of Service: 04/04/25 Interval history: Overall feels better and denies abdominal pain. C/o nausea but would like to try solid food. Passing flatus and ileostomy with stool output. Physical Exam Vital Signs: Vital Signs: Last Vital Signs Temp 98.3 F 04/04/25 07:29 Pulse 82 04/04/25 07:29 Resp 18 04/04/25 07:29 BP 109/58 L 04/04/25 07:29 Pulse Ox 96 04/04/25 07:29 O2 Del Method Room Air 04/04/25 07:29 BMI result Body Mass Index 26.1 Const: General: comfortable, no acute distress and alert Orientation/consciousness: patient oriented x3 Resp: Effort & Inspection: normal respiratory effort and not labored GI: Other: RUQ with cholecystostomy drain in place, mild tenderness surrounding drain there is tenderness surrounding her ileostomy coinciding with her parastomal hernia, soft ostomy appliance with gas and stool output Inspection: No distended Skin: General skin exam: no rashes or lesions noted Neuro: General: patient oriented x3 and moves all extremities Objective Data Active Medications Amiodarone HCl (Amiodarone Hcl 200 Mg Tablet) 200 mg PO DAILY [facility] Last Admin: 04/04/25 09:08 Dose: 200 mg Documented By: KENROY Lipase/Protease/Amylase (Lipase/Prot/Amylase 12/38/60k Capsule.Dr) 3 cap PO TIDWM [facility] Last Admin: 04/04/25 09:07 Dose: 3 cap Documented By: KENROY Atorvastatin Calcium (Atorvastatin Calcium 20 Mg Tablet) 20 mg PO BEDTIME [facility] Last Admin: 04/03/25 21:06 Dose: 20 mg Documented By: OXANA Calcium Carbonate (Calcium Carbonate 750 Mg Tab.Chew) 750 mg PO Q6H PRN PRN Reason: Heartburn Last Admin: 04/04/25 09:21 Dose: 750 mg Documented By: KENROY Carisoprodol (Carisoprodol 350 Mg Tablet) 350 mg PO BEDTIME [facility] Last Admin: 04/03/25 21:13 Dose: Not Given Documented By: OXANA Non-Admin Reason: Patient Refused Colchicine (Colchicine 0.6 Mg Tablet) 0.6 mg PO DAILY [facility] Last Admin: 04/04/25 09:07 Dose: 0.6 mg Documented By: KENROY Enoxaparin Sodium (Enoxaparin Sodium 40 Mg/0.4 Ml Syringe) 40 mg SUBCUT Q24H [facility] Last Admin: 04/04/25 09:08 Dose: 40 mg Documented By: KENROY Hydromorphone HCl (Hydromorphone Hcl 0.5 Mg/0.5 Ml Syringe) 0.75 mg IVPUSH Q4H PRN; Protocol PRN Reason: Pain, Severe (Pain Scale 7-10) Last Admin: 04/04/25 09:06 Dose: 0.75 mg Documented By: KENROY Piperacillin Sod/Tazobactam (Sod 4.5 gm/ Sodium Chloride) 100 mls @ 200 mls/hr IV Q6H [facility] Last Infusion: 04/04/25 03:54 Dose: Infused Documented By: OXANA Linezolid (Zyvox/D5w) 600 mg in 300 mls @ 300 mls/hr IV Q12H [facility] Last Infusion: 04/04/25 05:45 Dose: Infused Documented By: OXANA Magnesium Sulfate (Magnesium Sulfate/H2o) 2 gm in 50 mls @ 25 mls/hr IV ONCE ONE Stop: 04/04/25 10:56 Midodrine (Midodrine Hcl 10 Mg Tablet) 10 mg PO TID [facility] Last Admin: 04/04/25 09:08 Dose: 10 mg Documented By: KENROY Ondansetron HCl (Ondansetron Hcl 4 Mg/2 Ml Vial) 4 mg IVPUSH Q6H PRN PRN Reason: Nausea and Vomiting Last Admin: 04/04/25 09:02 Dose: 4 mg Documented By: KENROY Pantoprazole Sodium (Pantoprazole Sodium 40 Mg/10 Ml Vial) 40 mg IVPUSH DAILY@0630 [facility] Last Admin: 04/04/25 05:49 Dose: 40 mg Documented By: OXANA Potassium Chloride (Potassium Chloride Packet 20 Meq Packet) 40 meq PO BID [facility] Last Admin: 04/03/25 21:14 Dose: Not Given Documented By: OXANA Non-Admin Reason: Patient Refused Sodium Chloride (0.9 % Sodium Chloride Flush 10 Ml Syringe) 10 ml IVFLUSH QSHIFT [facility] Last Admin: 04/04/25 09:08 Dose: 10 ml Documented By: KENROY Labs 04/04/25 07:01 04/04/25 07:01 Labs: Laboratory Results - last 24 hr 04/04/25 07:01 MCV 86.7 MCH 29.1 MCHC 33.6 RDW 15.4 Plt Count 153 L MPV 9.7 Immature Gran % (Auto) 0.7 H Neut % (Auto) 76.7 H Lymph % (Auto) 10.6 L [place] % (Auto) 7.7 Eos % (Auto) 3.9 Baso % (Auto) 0.4 Lymph # (Auto) 1.5 [place] # (Auto) 1.1 Eos # (Auto) 0.5 H Baso # (Auto) 0.1 Abs Immat Gran (auto) 0.09 H Absolute Neuts (auto) 10.5 H Absolute Nucleated RBC 0.000 Nucleated RBC % (auto) 0.0 Anion Gap 11 L Estim Creat Clear Calc 75.6 Estimated GFR > 60 Random Glucose 89 Calcium 7.6 L Magnesium 1.4 L* Microbiology Microbiology Results: Microbiology 04/02/25 15:14 Gram Stain - Final Gallbladder Fluid Routine Culture - Final No growth after 2 days 03/30/25 21:54 Urine Culture - Final Urine Catheterized - Straight Catheter Enterococcus faecium Klebsiella pneumoniae Procedures Date of Service Date of Service: 04/04/25 Progress Note: A&P Assessment and plan (1) Acute cholecystitis: Status: Acute (2) Ileostomy in place: Status: Acute Plan Admitted with severe sepsis, hypotension initially requiring ICU admission and pressors. Initial source of sepsis unclear, CT scan equivocal for acute cholecystitis but did get localized tenderness in RUQ with fevers, therefore underwent cholecystostomy tube placement, culture sent and negative for growth. Urine culture growing Enterococcus and Klebsiella. Abd is soft, mild RUQ tenderness, tenderness at ileostomy site coinciding with parastomal hernia, soft, drain bulb with bilious drainage. Ostomy has good output, no evidence of obstruction. Would keep drain in place for now. Can advance diet to solids as tolerated. Time Spent With Patient Time: Total time managing care of this patient today ____ minutes. Quality Stroke Does the patient have a stroke diagnosis?: No VTE Prior VTE?: No VTE Risk Level:: Medical - moderate - high VTE Device Contraindication: N/A - Device Ordered VTE Drug Contraindication: N/A - Med Ordered
--- NOTE | 2025-04-04 11:05 | HO.PM.IMPN ---
Subjective Subjective Date of Service: 04/04/25 Interval History: Stepped down from ICU yesterday. Is complaining of abdominal pain and nausea. Cardiovascular Cardiovascular: Reports no additional cardiovascular complaints Respiratory Respiratory: Reports no additional respiratory complaints Gastrointestinal Gastrointestinal: Reports abdominal pain and Reports nausea Genitourinary Genitourinary: Reports no additional female genitourinary complaints Physical Exam Vital Signs: Vital Signs: Last Vital Signs Temp 98.3 F 04/04/25 07:29 Pulse 82 04/04/25 07:29 Resp 18 04/04/25 07:29 BP 109/58 L 04/04/25 07:29 Pulse Ox 96 04/04/25 07:29 O2 Del Method Room Air 04/04/25 07:29 BMI result Body Mass Index 26.1 Const: Other: Middle-aged female lying in bed in no distress Neck supple, no JVD Regular rate and rhythm, S1-S2 heard Regular breath sounds bilaterally, no wheezing or crackles appreciated Abdomen with cholecystostomy drain in place, mild tenderness present, no rigidity ; ileostomy with stool output Patient is awake, alert and oriented to self, place, time and person ; no focal motor deficit Psych: Normal mood Objective Data Active Medications Amiodarone HCl (Amiodarone Hcl 200 Mg Tablet) 200 mg PO DAILY [facility] Last Admin: 04/04/25 09:08 Dose: 200 mg Documented By: KENROY Lipase/Protease/Amylase (Lipase/Prot/Amylase 12/38/60k Capsule.Dr) 3 cap PO TIDWM [facility] Last Admin: 04/04/25 09:07 Dose: 3 cap Documented By: KENROY Atorvastatin Calcium (Atorvastatin Calcium 20 Mg Tablet) 20 mg PO BEDTIME [facility] Last Admin: 04/03/25 21:06 Dose: 20 mg Documented By: OXANA Calcium Carbonate (Calcium Carbonate 750 Mg Tab.Chew) 750 mg PO Q6H PRN PRN Reason: Heartburn Last Admin: 04/04/25 09:21 Dose: 750 mg Documented By: KENROY Carisoprodol (Carisoprodol 350 Mg Tablet) 350 mg PO BEDTIME [facility] Last Admin: 04/03/25 21:13 Dose: Not Given Documented By: OXANA Non-Admin Reason: Patient Refused Colchicine (Colchicine 0.6 Mg Tablet) 0.6 mg PO DAILY [facility] Last Admin: 04/04/25 09:07 Dose: 0.6 mg Documented By: KENROY Enoxaparin Sodium (Enoxaparin Sodium 40 Mg/0.4 Ml Syringe) 40 mg SUBCUT Q24H [facility] Last Admin: 04/04/25 09:08 Dose: 40 mg Documented By: KENROY Hydromorphone HCl (Hydromorphone Hcl 0.5 Mg/0.5 Ml Syringe) 0.75 mg IVPUSH Q4H PRN; Protocol PRN Reason: Pain, Severe (Pain Scale 7-10) Last Admin: 04/04/25 09:06 Dose: 0.75 mg Documented By: KENROY Piperacillin Sod/Tazobactam (Sod 4.5 gm/ Sodium Chloride) 100 mls @ 200 mls/hr IV Q6H [facility] Last Infusion: 04/04/25 03:54 Dose: Infused Documented By: OXANA Linezolid (Zyvox/D5w) 600 mg in 300 mls @ 300 mls/hr IV Q12H [facility] Last Infusion: 04/04/25 05:45 Dose: Infused Documented By: OXANA Midodrine (Midodrine Hcl 10 Mg Tablet) 10 mg PO TID [facility] Last Admin: 04/04/25 09:08 Dose: 10 mg Documented By: KENROY Ondansetron HCl (Ondansetron Hcl 4 Mg/2 Ml Vial) 4 mg IVPUSH Q6H PRN PRN Reason: Nausea and Vomiting Last Admin: 04/04/25 09:02 Dose: 4 mg Documented By: KENROY Pantoprazole Sodium (Pantoprazole Sodium 40 Mg/10 Ml Vial) 40 mg IVPUSH DAILY@0630 [facility] Last Admin: 04/04/25 05:49 Dose: 40 mg Documented By: OAXNA Potassium Chloride (Potassium Chloride Packet 20 Meq Packet) 40 meq PO BID [facility] Last Admin: 04/03/25 21:14 Dose: Not Given Documented By: OXANA Non-Admin Reason: Patient Refused Sodium Chloride (0.9 % Sodium Chloride Flush 10 Ml Syringe) 10 ml IVFLUSH QSHIFT [facility] Last Admin: 04/04/25 09:08 Dose: 10 ml Documented By: KENROY Labs 04/04/25 07:01 04/04/25 07:01 Labs: Laboratory Results - last 24 hr 04/04/25 07:01 MCV 86.7 MCH 29.1 MCHC 33.6 RDW 15.4 Plt Count 153 L MPV 9.7 Immature Gran % (Auto) 0.7 H Neut % (Auto) 76.7 H Lymph % (Auto) 10.6 L [place] % (Auto) 7.7 Eos % (Auto) 3.9 Baso % (Auto) 0.4 Lymph # (Auto) 1.5 [place] # (Auto) 1.1 Eos # (Auto) 0.5 H Baso # (Auto) 0.1 Abs Immat Gran (auto) 0.09 H Absolute Neuts (auto) 10.5 H Absolute Nucleated RBC 0.000 Nucleated RBC % (auto) 0.0 Anion Gap 11 L Estim Creat Clear Calc 75.6 Estimated GFR > 60 Random Glucose 89 Calcium 7.6 L Magnesium 1.4 L* Microbiology Microbiology Results: Microbiology 04/02/25 15:14 Gram Stain - Final Gallbladder Fluid Routine Culture - Final No growth after 2 days 03/30/25 21:54 Urine Culture - Final Urine Catheterized - Straight Catheter Enterococcus faecium Klebsiella pneumoniae Assessment and Plan (1) Sepsis: Status: Acute Plan 65yo F with HTN, HLD, CAD, CHF, pAF on Eliquis, hx pancreatitis, recent subtotal colectomy/hernia repair at [facility] on 01/07/2025 with resultant ileostomy bag followed by admission to the ICU at [facility] from 01/20-01/25 for pulmonary edema/pericardial effusion/anemia/new onset a flutter/intra-abdominal abscess/[place] bacteremia after which patient was transferred to [facility] where she has abscesses drained; finished a course of antibiotics and discharged home on 02/17/25. Presented back to the ER on 02/18/25 overnight with a chief complaint of abdominal pain with question of cholecystitis ruled out, discharged home 02/27. Re-admitted 02/28 for abdominal pain and nausea along with vaginal spotting and BRBPR. She underwent sigmoidoscopy on 03/04/25; this showed rectovaginal fistula; likely she had bleeding from the fibroid diverting in to the short remaining rectal stump. She then underwent uterine artery embolization on 03/10/25. Re-admitted 03/30 to ICU for septic shock. #. Septic shock due to UTI + ?acute cholecystitis: Patient is off pressor support and stepped down from ICU on 04/03. Urine cultures with VRE and Klebsiella. Also underwent placement of cholecystostomy tube on 04/02. General surgery following. Will advance diet. Cultures from tube negative till date. On empiric IV Zyvox and Zosyn. ID consult pending #. Acute kidney injury stage III: ATN from shock. Resolved and creatinine is at baseline #. Chronic hypokalemia/acute hypomagnesemia: Repleted magnesium. Patient was placed on scheduled oral potassium which she has been refusing #. Chronic anemia: Hemoglobin above transfusion threshold #. Paroxysmal atrial fib: On Eliquis and amiodarone. Hold Coreg due to soft BP #. History of pancreatitis: On pancreatic enzyme supplementation #. Chronic pericarditis: On colchicine #. CAD: On statin. Hold beta-lokesh as above DVT prophylaxis: Eliquis dispo- likely will need STR; PT eval pending Reason for continued hospitalization: IV antibiotics, awaiting PT eval for safe disposition, management of cholecystostomy tube Quality Stroke Does the patient have a stroke diagnosis?: No VTE Prior VTE?: No VTE Risk Level:: Medical - moderate - high VTE Device Contraindication: Treatment Not Indicated VTE Drug Contraindication: N/A - Med Ordered
[2025-04-04] MEDS: Magnesium Sulfate/H2O 2 GM/50 ML PIGGYBACK IV (11:09)
--- NOTE | 2025-04-04 13:07 | P.CNID_ITS ---
History of Present Illness Data of Consult Service Date: 04/04/25 Requesting physician: Noa Garcias Primary Care Provider: Joi Rebollar MD HPI Reason for consult: possible infection She presents with concerns of abdominal sepsis from gall bladder. She had cholestotomy tube. She has been hospitalized for six days and received antibiotics. She had temperature 101.9 on admission and now afebrile last days. Cultures are negative. Review of Systems 2 Review of Systems: Yes all other systems are reviewed and are negative [facility] Past Medical History Medical History Pancreatitis Insomnia Bilateral knee pain Polyarthralgia MARKIE (acute kidney injury) Back pain Arthritis History of transfusion of packed red blood cells Anemia Cardiomyopathy MARKIE (acute kidney injury) MARKIE (acute kidney injury) Anxiety Small bowel obstruction Myocardial infarction NSTEMI (non-ST elevated myocardial infarction) NSVT (nonsustained ventricular tachycardia) PVC (premature ventricular contraction) Hypertension Perforated diverticulum Irritable bowel syndrome with constipation Barretts esophagus GERD (gastroesophageal reflux disease) Family History Family History Father Colon cancer Congestive heart failure Paternal Aunt Colon cancer Mother Congestive heart failure Afib Surgical History Surgical History S/P colon resection PIC line (peripherally inserted central catheter) removal History of low anterior resection of rectum Status post cardiac catheterization Ileostomy in place H/O dilation and curettage History of exploratory laparotomy (05/11/23) S/P colostomy Colovesical fistula History of esophagogastroduodenoscopy (EGD) Hx of colonoscopy Social History Social History Household Members: None Housing: House Are you a primary child care center administrator to a significant other at home: No Do you presently have visiting nurse or other home services: Yes Alcohol intake: never Comment: located near nursing station Patient Tobacco Use Status: Former Tobacco user Tobacco use type: Cigarette Cigarette Packs Per Day: 0.5 Cigarettes Per Day: 10.0 Years Smoked: 25 Smoked in Last 30 Days: No e-Cigarette/Vaping Use: Former Use Second Hand Smoke Exposure: No Use of substances other than those prescribed or required for medical reasons: No Substance Use Type: Marijuana Currently Displaying Signs/Symptoms of Drug Intoxication Withdrawal: No Have you been hit, kicked, punched, or otherwise hurt by someone within the past year? If so, by whom?: No Do you feel safe in your current relationship?: No Current Relationship Is there a partner from a previous relationship who is making you feel unsafe now?: No Are you made to feel afraid or neglected: No Advance Directives: Yes Advance Directives on File: Yes Advance Directives Date on File: 12/29/23 Do you have a plan to hurt others: No Plan Recently lost weight without trying: Yes How much weight loss: 24-33 pounds Eating poorly because of decreased appetite: Yes Nutrition screen score: 6 Nutrition Risks: Acute nausea or vomiting x1 week and Poor intake 0-25% >4 days Patient : No service: No Cognitive needs: No Hearing needs: No Vision needs: Yes Meds Allergies Allergy/AdvReac Type Severity Reaction Status Date / Time clams Allergy Severe Stomach Verified 03/30/25 14:01 Upset clavulanic acid (Augmentin) Allergy Unknown GI, Verified 03/30/25 14:01 Difficulty breathing codeine (CODEINE) Allergy Unknown SENSITIVIT Verified 03/30/25 14:01 Y erythromycin base Allergy Unknown GI, DIFF Verified 03/30/25 14:01 (Erythromycin Base) BREATHING Sulfa (Sulfonamide Allergy Unknown RASH Verified 03/30/25 14:01 Antibiotics) morphine (MORPHINE) AdvReac Severe Difficulty Verified 03/30/25 14:01 Breathing aspirin (Aspirin) AdvReac Mild STOMACH Verified 03/30/25 14:01 UPSET melatonin AdvReac Vomiting Verified 03/30/25 14:01 Active Medications: Current Medications Amiodarone HCl (Amiodarone Hcl 200 Mg Tablet) 200 mg PO DAILY [facility] Last Admin: 04/04/25 09:08 Dose: 200 mg Lipase/Protease/Amylase (Lipase/Prot/Amylase 12/38/60k Capsule.) 3 cap PO TIDWM [facility] Last Admin: 04/04/25 11:24 Dose: 3 cap Apixaban (Apixaban 5 Mg Tablet) 5 mg PO BID [facility] Atorvastatin Calcium (Atorvastatin Calcium 20 Mg Tablet) 20 mg PO BEDTIME [facility] Last Admin: 04/03/25 21:06 Dose: 20 mg Calcium Carbonate (Calcium Carbonate 750 Mg Tab.Chew) 750 mg PO Q6H PRN PRN Reason: Heartburn Last Admin: 04/04/25 09:21 Dose: 750 mg Carisoprodol (Carisoprodol 350 Mg Tablet) 350 mg PO BEDTIME [facility] Last Admin: 04/03/25 21:13 Dose: Not Given Hydromorphone HCl (Hydromorphone Hcl 0.5 Mg/0.5 Ml Syringe) 0.75 mg IVPUSH Q4H PRN; Protocol PRN Reason: Pain, Severe (Pain Scale 7-10) Last Admin: 04/04/25 09:06 Dose: 0.75 mg Midodrine (Midodrine Hcl 10 Mg Tablet) 10 mg PO TID [facility] Last Admin: 04/04/25 09:08 Dose: 10 mg Ondansetron HCl (Ondansetron Hcl 4 Mg/2 Ml Vial) 4 mg IVPUSH Q6H PRN PRN Reason: Nausea and Vomiting Last Admin: 04/04/25 09:02 Dose: 4 mg Pantoprazole Sodium (Pantoprazole Sodium 40 Mg/10 Ml Vial) 40 mg IVPUSH DAILY@0630 [facility] Last Admin: 04/04/25 05:49 Dose: 40 mg Potassium Chloride (Potassium Chloride Packet 20 Meq Packet) 40 meq PO BID [facility] Last Admin: 04/04/25 11:28 Dose: Not Given Sodium Chloride (0.9 % Sodium Chloride Flush 10 Ml Syringe) [facility] Last Admin: 04/04/25 09:08 Dose: 10 ml Home Medications ?Medication ?Instructions ?Recorded ?Confirmed ?Last Taken ?Type mirtazapine 15 mg tablet 15 mg PO BEDTIME 11/30/2303/30/25 History multivitamin with minerals-folic 1 tab PO DAILY 03/31/25 03/30/25 History acid 200 mcg chewable tablet (Multivitamin Gummies) carisoprodol 350 mg tablet 350 mg PO BEDTIME 03/19/24 03/31/25 03/30/25 History amiodarone 200 mg tablet 200 mg PO DAILY 02/19/2503/30/25 History apixaban 5 mg tablet (Eliquis) 5 mg PO BID 06/03/30/25 History colchicine 0.6 mg tablet 0.6 mg PO DAILY 02/19/2503/30/25 History esomeprazole magnesium 20 mg 20 mg PO DAILY@0630 02/1903/31/25 03/30/25 History capsule,delayed release (Nexium) cyanocobalamin (vitamin B-12) 1,000 mcg PO DAILY 03/3103/31/25 03/30/25 History 1,000 mcg tablet (Vitamin B-12) potassium chloride 20 mEq 20 meq PO BID 03/31/2503/3103/30/25 History tablet,extended release Physical Exam 2 Vital Signs: Vital Signs: Last Vital Signs Temp 99.2 F 04/04/25 11:05 Pulse 74 04/04/25 11:05 Resp 18 04/04/25 11:05 BP 109/59 L 04/04/25 11:05 Pulse Ox 96 04/04/25 11:05 O2 Del Method Room Air 04/04/25 11:05 BMI result Body Mass Index 26.1 Const: General: cooperative HEENT: Head: Yes normal to inspection Face and sinus: Yes normal facial exam Mouth: Normal oral and palatal mucosa present Teeth and gingiva: d entition normal Eyes: General: appearance normal, both eyes and all related structures P upils: Equal, round and reactive pupils present Resp: Effort & Inspection: normal respiratory effort Cardio: Rate: regular rate Rhythm: regular rhythm GI: Other: cholestotomy tube Palpation (GI): Soft to palpation and nontender : General: Yes no CVA tenderness Back/Spine/Pelvis: Back: no CVA tenderness Skin: General skin exam: no rashes or lesions noted Neuro: General: moves all extremities Cranial nerves: Yes Equal, round and reactive pupils present Extrem: General: Yes normal to inspection Psych: Appearance: grossly normal Results Labs 04/04/25 07:01 04/04/25 07:01 Labs: Short CBC 04/04/25 Range/Units 07:01 WBC 13.7 H (4.8-10.8) X10*3/uL Hgb 8.3 L (12.0-16.0) g/dl Hct 24.7 L (37.0-47.0) % Plt Count 153 L (160-400) X10*3/uL BMP 04/04/25 07:01 Sodium 134 L Potassium 3.6 Chloride 104 Carbon Dioxide 23 BUN 12 Creatinine 0.75 Calcium 7.6 L Microbiology Microbiology Results: Microbiology 04/02/25 15:14 Gallbladder Fluid Gram Stain - Final 04/02/25 15:14 Gallbladder Fluid Routine Culture - Final No growth after 2 days 03/30/25 21:54 Urine Catheterized - Straight Catheter Urine Culture - Final Enterococcus faecium Klebsiella pneumoniae 03/30/25 14:45 Blood - Venous Blood Culture - Preliminary No growth after 48 hours. 03/30/25 14:34 Blood - Venous Blood Culture - Preliminary No growth after 48 hours. Assessment and Plan (1) Acute hypotension: Status: Acute (2) Sepsis: Status: Acute Plan She has received antibiotics and now is sixth hospital day. Cultures are negative and VRE less than [id number] and klebsiella less than 10,000 reflect colonization Can hold antibiotics for now.
--- NOTE | 2025-04-04 19:44 | PC.NURSE ---
Assumed care of this patient this evening. During safe start rounding, pt requested her prn dilaudid dose be reduced to 0.5mg at same frequency. Covering Dr. Batista was notified and dose was adjusted by MD per pt request. Pt refusing high fall measures including bed/chair alarms and assistance to the bathroom. Educated on safety measures.
[2025-04-05] VITALS (10 sets, daily range): BP systolic 112–131; BP diastolic 58–64; PULSE 76–91; RESP 16–20; TEMP 36.6–37.6; O2SAT 97–99
[2025-04-05] MEDS: Lipase/Prot/Amylase 12/38/60K CAPSULE.DR 3 CAP PO ×3 (08:00→16:55)
[2025-04-05] MEDS: 0.9 % Sodium Chloride Flush 10 ML SYRINGE IVFLUSH ×2 (08:04→15:08)
[2025-04-05 08:06] LABS: MANUAL DIFF FLAG NO
[2025-04-05 08:23] LABS: Hematocrit 25.6 % (37.0-47.0); Hemoglobin 8.6 g/dl (12.0-16.0); Imm Gran Abs Auto 0.07 X10*3/uL (0.00-0.03); Imm Gran Pct Auto 0.5 % (0.0-0.4); Lymphocytes Absolute Auto 2.1 X10*3/uL (1.2-4.9); Mean Corpuscular HGB Conc 33.6 g/dl (31.0-35.0); Mean Corpuscular Hemoglobin 29.3 pg (27.0-33.0); Mean Corpuscular Volume 87.1 fL (80.0-98.0); NRBC Abs Auto 0.000 X10*3/uL (0.0-0.012); NRBC Pct Auto 0.0 /100WBC (0.0-0.2); Platelet Count 173 X10*3/uL (160-400); Red Blood Count 2.94 X10*6/uL (4.20-5.50); White Blood Count 13.3 X10*3/uL (4.8-10.8)
[2025-04-05 08:26] LABS: Anion Gap 12 (12-20); Blood Urea Nitrogen 11 mg/dL (9-16); Calcium 7.8 mg/dL (8.4-10.2); Carbon Dioxide 24 mmol/L (22-29); Chloride 103 mmol/L (96-108); Creatinine Clr Calc Pharmacy 83.4; Estimated Glomerular Filt Rate > 60; Magnesium 1.5 mg/dL (1.6-2.6); Potassium 3.4 mmol/L (3.3-5.1); Sodium 136 mmol/L (135-145)
--- NOTE | 2025-04-05 08:55 | P.PNIM_ITS ---
Subjective Subjective Date of Service: 04/05/25 Interval History: No significant nursing events overnight. Patient endorsing weakness due to hospital stay Cardiovascular Cardiovascular: Reports no additional cardiovascular complaints Respiratory Respiratory: Reports no additional respiratory complaints Gastrointestinal Gastrointestinal: Reports abdominal pain and Reports nausea Physical Exam 2 Vital Signs: Vital Signs: Last Vital Signs Temp 97.8 F 04/05/25 07:47 Pulse 90 04/05/25 07:47 Resp 20 04/05/25 07:47 BP 131/63 04/05/25 07:47 Pulse Ox 99 04/05/25 07:47 O2 Del Method Room Air 04/05/25 07:47 BMI result Body Mass Index 26.1 Const: Other: Middle-aged female lying in bed in no distress Neck supple, no JVD Regular rate and rhythm, S1-S2 heard Regular breath sounds bilaterally, no wheezing or crackles appreciated Abdomen with cholecystostomy drain in place, mild tenderness present, no rigidity ; ileostomy with stool output Patient is awake, alert and oriented to self, place, time and person ; no focal motor deficit Psych: Normal mood Objective Data Active Medications Amiodarone HCl (Amiodarone Hcl 200 Mg Tablet) 200 mg PO DAILY [facility] Last Admin: 04/05/25 08:03 Dose: 200 mg Documented By: SAM Lipase/Protease/Amylase (Lipase/Prot/Amylase /60k Capsule.Dr) 3 cap PO TIDWM [facility] Last Admin: 04/05/25 08:00 Dose: 3 cap Documented By: SAM Apixaban (Apixaban 5 Mg Tablet) 5 mg PO BID [facility] Last Admin: 04/05/25 08:01 Dose: 5 mg Documented By: SAM Atorvastatin Calcium (Atorvastatin Calcium 20 Mg Tablet) 20 mg PO BEDTIME [facility] Last Admin: 04/04/25 21:21 Dose: 20 mg Documented By: ABHIJIT Calcium Carbonate (Calcium Carbonate 750 Mg Tab.Chew) 750 mg PO Q6H PRN PRN Reason: Heartburn Last Admin: 04/04/25 21:21 Dose: 750 mg Documented By: ABHIJIT Carisoprodol (Carisoprodol 350 Mg Tablet) 350 mg PO BEDTIME [facility] Last Admin: 04/04/25 21:03 Dose: Not Given Documented By: ABHIJIT Non-Admin Reason: Patient Refused Hydromorphone HCl (Hydromorphone Hcl 0.5 Mg/0.5 Ml Syringe) 0.5 mg IVPUSH Q4H PRN; Protocol PRN Reason: Pain, Severe (Pain Scale 7-10) Last Admin: 04/05/25 08:00 Dose: 0.5 mg Documented By: SAM Midodrine (Midodrine Hcl 10 Mg Tablet) 10 mg PO TID [facility] Last Admin: 04/05/25 08:00 Dose: 10 mg Documented By: SAM Ondansetron HCl (Ondansetron Hcl 4 Mg/2 Ml Vial) 4 mg IVPUSH Q6H PRN PRN Reason: Nausea and Vomiting Last Admin: 04/04/25 09:02 Dose: 4 mg Documented By: KENROY Pantoprazole Sodium (Pantoprazole Sodium 40 Mg/10 Ml Vial) 40 mg IVPUSH DAILY@0630 [facility] Last Admin: 04/05/25 06:35 Dose: 40 mg Documented By: ABHIJIT Potassium Chloride (Potassium Chloride Packet 20 Meq Packet) 40 meq PO BID [facility] Last Admin: 04/05/25 08:07 Dose: Not Given Documented By: SAM Non-Admin Reason: Patient Refused Sodium Chloride (0.9 % Sodium Chloride Flush 10 Ml Syringe) 10 ml IVFLUSH QSHIFT [facility] Last Admin: 04/05/25 08:04 Dose: 10 ml Documented By: SAM Labs 04/05/25 07:43 04/05/25 07:43 Labs: Laboratory Results - last 24 hr 04/05/25 07:43 MCV 87.1 MCH 29.3 MCHC 33.6 RDW 15.5 Plt Count 173 MPV 9.7 Immature Gran % (Auto) 0.5 H Neut % (Auto) 74.8 H Lymph % (Auto) 15.4 L Craig % (Auto) 5.9 Eos % (Auto) 3.1 Baso % (Auto) 0.3 Lymph # (Auto) 2.1 Craig # (Auto) 0.8 Eos # (Auto) 0.4 Baso # (Auto) 0.0 Abs Immat Gran (auto) 0.07 H Absolute Neuts (auto) 10.0 H Absolute Nucleated RBC 0.000 Nucleated RBC % (auto) 0.0 Anion Gap 12 Estim Creat Clear Calc 83.4 Estimated GFR > 60 Random Glucose 76 Calcium 7.8 L Magnesium 1.5 L Microbiology Microbiology Results: Microbiology 03/30/25 14:45 Blood Culture - Final Blood - Venous No growth after 5 days. 03/30/25 14:34 Blood Culture - Final Blood - Venous No growth after 5 days. 04/02/25 15:14 Gram Stain - Final Gallbladder Fluid Routine Culture - Final No growth after 2 days Assessment and Plan (1) Sepsis: Status: Acute Plan 65yo F with HTN, HLD, CAD, CHF, pAF on Eliquis, hx pancreatitis, [place] [facility] [place] with resultant [place] bag followed by admission to the ICU at [facility] from 01/20-01/25 for pulmonary edema/pericardial effusion/anemia/new onset a flutter/intra-abdominal abscess/Finegoldia bacteremia after which patient was transferred to [facility] where she has abscesses drained; finished a course of antibiotics and discharged home on 02/17/25. Presented back to the ER on 02/18/25 overnight with a chief complaint of abdominal pain with question of cholecystitis ruled out, discharged home 02/27. Re-admitted 02/28 for abdominal pain and nausea along with vaginal spotting and BRBPR. She underwent sigmoidoscopy on 03/04/25; this showed rectovaginal fistula; likely she had bleeding from the fibroid diverting in to the short remaining rectal stump. She then underwent uterine artery embolization on 03/10/25. Re-admitted 03/30 to ICU for septic shock. #. Septic shock due to UTI + ?acute cholecystitis: Patient is off pressor support and stepped down from ICU on 04/03. Urine cultures with VRE and Klebsiella. Not significant as per ID. Was on linezolid which has been discontinued as per ID recommendations. Also underwent placement of cholecystostomy tube on 04/02. General surgery following. Advanced diet. Cultures from tube negative till date. #. Acute kidney injury stage III: ATN from shock. Resolved and creatinine is at baseline #. Chronic hypokalemia/acute hypomagnesemia: Repleted magnesium. Patient was placed on scheduled oral potassium which she has been refusing #. Chronic anemia: Hemoglobin above transfusion threshold #. Paroxysmal atrial fib: On Eliquis and amiodarone. Hold Coreg due to soft BP #. History of pancreatitis: On pancreatic enzyme supplementation #. Chronic pericarditis: On colchicine #. CAD: On statin. Hold beta-lokesh as above DVT prophylaxis: Eliquis dispo- likely will need STR; PT eval pending Reason for continued hospitalization: awaiting PT eval for safe disposition, management of cholecystostomy tube Quality Stroke Does the patient have a stroke diagnosis?: No VTE Prior VTE?: No VTE Risk Level:: Medical - moderate - high VTE Device Contraindication: Treatment Not Indicated VTE Drug Contraindication: N/A - Med Ordered
[2025-04-06] VITALS: BP 110/60; PULSE 70; RESP 20; TEMP 36.7; O2SAT 97
[2025-04-06] MEDS: 0.9 % Sodium Chloride Flush 10 ML SYRINGE IVFLUSH ×4 (00:14→20:40)
[2025-04-06 04:00] VITALS: BP 125/57; PULSE 72; RESP 16; TEMP 36.4; O2SAT 96
[2025-04-06 07:37] VITALS: BP 108/55; PULSE 77; RESP 20; TEMP 36.3; O2SAT 98
[2025-04-06] MEDS: Lipase/Prot/Amylase 12/38/60K CAPSULE.DR 3 CAP PO ×3 (08:18→16:26)
[2025-04-06 09:00] LABS: Hematocrit 26.1 % (37.0-47.0); Hemoglobin 8.7 g/dl (12.0-16.0); Imm Gran Abs Auto 0.11 X10*3/uL (0.00-0.03); Imm Gran Pct Auto 0.8 % (0.0-0.4); Lymphocytes Absolute Auto 2.7 X10*3/uL (1.2-4.9); MANUAL DIFF FLAG SCAN; Mean Corpuscular HGB Conc 33.3 g/dl (31.0-35.0); Mean Corpuscular Hemoglobin 29.2 pg (27.0-33.0); Mean Corpuscular Volume 87.6 fL (80.0-98.0); NRBC Abs Auto 0.000 X10*3/uL (0.0-0.012); NRBC Pct Auto 0.0 /100WBC (0.0-0.2); Platelet Count 168 X10*3/uL (160-400); Red Blood Count 2.98 X10*6/uL (4.20-5.50); SCAN SMEAR FLAG 1; White Blood Count 13.7 X10*3/uL (4.8-10.8)
[2025-04-06 09:12] LABS: Anion Gap 9 (12-20); Blood Urea Nitrogen 11 mg/dL (9-16); Calcium 7.7 mg/dL (8.4-10.2); Carbon Dioxide 25 mmol/L (22-29); Chloride 104 mmol/L (96-108); Creatinine Clr Calc Pharmacy 96.1; Estimated Glomerular Filt Rate > 60; Potassium 3.2 mmol/L (3.3-5.1); Sodium 135 mmol/L (135-145)
--- NOTE | 2025-04-06 09:49 | HO.PM.IMPN ---
Subjective Subjective Date of Service: 04/06/25 Interval History: No significant nursing events overnight. Patient endorsing weakness due to hospital stay. Refusing to go to [facility] Constitutional Constitutional: Reports fatigue, Reports lethargy, Reports malaise and Reports weakness Cardiovascular Cardiovascular: Reports no additional cardiovascular complaints Respiratory Respiratory: Reports no additional respiratory complaints Gastrointestinal Gastrointestinal: Reports abdominal pain and Reports nausea Neurologic Neurologic: Reports weakness Endocrine Endocrine: Reports fatigue Physical Exam Vital Signs: Vital Signs: Last Vital Signs Temp 97.4 F 04/06/25 07:37 Pulse 77 04/06/25 07:37 Resp 20 04/06/25 07:37 BP 108/55 L 04/06/25 07:37 Pulse Ox 98 04/06/25 07:37 O2 Del Method Room Air 04/06/25 07:37 BMI result Body Mass Index 26.1 Const: Other: Middle-aged female lying in bed in no distress Neck supple, no JVD Regular rate and rhythm, S1-S2 heard Regular breath sounds bilaterally, no wheezing or crackles appreciated Abdomen with cholecystostomy drain in place, mild tenderness present, no rigidity ; ileostomy with stool output Patient is awake, alert and oriented to self, place, time and person ; no focal motor deficit Psych: Normal mood Objective Data Active Medications Amiodarone HCl (Amiodarone Hcl 200 Mg Tablet) 200 mg PO DAILY [facility] Last Admin: 04/06/25 08:18 Dose: 200 mg Documented By: ANGELES Lipase/Protease/Amylase (Lipase/Prot/Amylase 12/38/60k Capsule.Dr) 3 cap PO TIDWM [facility] Last Admin: 04/06/25 08:18 Dose: 3 cap Documented By: ANGELES Apixaban (Apixaban 5 Mg Tablet) 5 mg PO BID [facility] Last Admin: 04/06/25 08:19 Dose: 5 mg Documented By: ANGELES Atorvastatin Calcium (Atorvastatin Calcium 20 Mg Tablet) 20 mg PO BEDTIME [facility] Last Admin: 04/05/25 20:07 Dose: 20 mg Documented By: ABHIJIT Calcium Carbonate (Calcium Carbonate 750 Mg Tab.Chew) 750 mg PO Q6H PRN PRN Reason: Heartburn Last Admin: 04/06/25 04:42 Dose: 750 mg Documented By: EVETTE Carisoprodol (Carisoprodol 350 Mg Tablet) 350 mg PO BEDTIME [facility] Last Admin: 04/05/25 20:13 Dose: Not Given Documented By: ABHIJIT Non-Admin Reason: Patient Refused Colchicine (Colchicine 0.6 Mg Tablet) 0.6 mg PO DAILY [facility] Last Admin: 04/06/25 08:19 Dose: 0.6 mg Documented By: ANGELES Hydromorphone HCl (Hydromorphone Hcl 0.5 Mg/0.5 Ml Syringe) 0.5 mg IVPUSH Q4H PRN; Protocol PRN Reason: Pain, Severe (Pain Scale 7-10) Last Admin: 04/06/25 08:24 Dose: 0.5 mg Documented By: ANGELES Midodrine (Midodrine Hcl 10 Mg Tablet) 10 mg PO TID [facility] Last Admin: 04/06/25 08:19 Dose: 10 mg Documented By: ANGELES Ondansetron HCl (Ondansetron Hcl 4 Mg/2 Ml Vial) 4 mg IVPUSH Q6H PRN PRN Reason: Nausea and Vomiting Last Admin: 04/05/25 15:47 Dose: 4 mg Documented By: ZA Pantoprazole Sodium (Pantoprazole Sodium 40 Mg/10 Ml Vial) 40 mg IVPUSH DAILY@0630 [facility] Last Admin: 04/06/25 04:46 Dose: 40 mg Documented By: EVETTE Potassium Chloride (Potassium Chloride Packet 20 Meq Packet) 40 meq PO BID [facility] Last Admin: 04/06/25 08:21 Dose: Not Given Documented By: ANGELES Non-Admin Reason: Patient Refused Sodium Chloride (0.9 % Sodium Chloride Flush 10 Ml Syringe) 10 ml IVFLUSH QSHIFT [facility] Last Admin: 04/06/25 08:19 Dose: 10 ml Documented By: ANGELES Labs 04/06/25 08:16 04/06/25 08:16 Labs: Laboratory Results - last 24 hr 04/06/25 08:16 MCV 87.6 MCH 29.2 MCHC 33.3 RDW 15.3 Plt Count 168 MPV 9.5 Immature Gran % (Auto) 0.8 H Neut % (Auto) 71.1 Lymph % (Auto) 19.3 L Knox % (Auto) 6.0 Eos % (Auto) 2.4 Baso % (Auto) 0.4 Lymph # (Auto) 2.7 Knox # (Auto) 0.8 Eos # (Auto) 0.3 Baso # (Auto) 0.1 Abs Immat Gran (auto) 0.11 H Absolute Neuts (auto) 9.7 H Absolute Nucleated RBC 0.000 Nucleated RBC % (auto) 0.0 Smear Tech's Comments VERIFIED Anion Gap 9 L Estim Creat Clear Calc 96.1 Estimated GFR > 60 Random Glucose 79 Calcium 7.7 L Assessment and Plan (1) Sepsis: Status: Acute Plan 65yo F with HTN, HLD, CAD, CHF, pAF on Eliquis, hx pancreatitis, recent [place]otal co[place] [facility] [place] with resultant ileostomy bag followed by admission to the ICU at [facility] from 01/20-01/25 for pulmonary edema/pericardial effusion/anemia/new onset a flutter/intra-abdominal abscess/Finegoldia bacteremia after which patient was transferred to [facility] where she has abscesses drained; finished a course of antibiotics and discharged home on 02/17/25. Presented back to the ER on 02/18/25 overnight with a chief complaint of abdominal pain with question of cholecystitis ruled out, discharged home 02/27. Re-admitted 02/28 for abdominal pain and nausea along with vaginal spotting and BRBPR. She underwent sigmoidoscopy on 03/04/25; this showed rectovaginal fistula; likely she had bleeding from the fibroid diverting in to the short remaining rectal stump. She then underwent uterine artery embolization on 03/10/25. Re-admitted 03/30 to ICU for septic shock. #. Septic shock due to UTI + ?acute cholecystitis: Patient is off pressor support and stepped down from ICU on 04/03. Urine cultures with VRE and Klebsiella. Not significant as per ID. Was on linezolid which has been discontinued as per ID recommendations. Also underwent placement of cholecystostomy tube on 04/02. Appreciate general sx. Advanced diet. Cultures from tube negative till date. #. Acute kidney injury stage III: ATN from shock. Resolved and creatinine is at baseline #. Chronic hypokalemia/acute hypomagnesemia: Repleted. Patient was placed on scheduled oral potassium which she has been refusing #. Chronic anemia: Hemoglobin above transfusion threshold #. Paroxysmal atrial fib: On Eliquis and amiodarone. Hold Coreg due to soft BP #. History of pancreatitis: On pancreatic enzyme supplementation #. Chronic pericarditis: On colchicine #. CAD: On statin. Hold beta-lokesh as above DVT prophylaxis: Eliquis Reason for continued hospitalization: Ongoing PT as patient is refusing STR and she wants to get stronger before going home Quality Stroke Does the patient have a stroke diagnosis?: No VTE Prior VTE?: No VTE Risk Level:: Medical - moderate - high VTE Device Contraindication: Treatment Not Indicated VTE Drug Contraindication: N/A - Med Ordered
[2025-04-06] MEDS: Potassium Chloride/H20 10 MEQ/100 ML PIGGYBACK 100 MEQ IV ×4 (10:26→14:25)
[2025-04-06 11:49] VITALS: BP 112/59; PULSE 77; RESP 20; TEMP 36.7; O2SAT 99
[2025-04-06 15:16] VITALS: BP 128/59; PULSE 78; RESP 14; TEMP 36.3; O2SAT 99
[2025-04-06 19:55] VITALS: BP 126/61; PULSE 82; RESP 16; TEMP 37.2; O2SAT 97
[2025-04-07] VITALS: BP 118/65; PULSE 96; RESP 16; TEMP 37.1; O2SAT 96
[2025-04-07 03:52] VITALS: BP 118/60; PULSE 67; RESP 17; TEMP 36.3; O2SAT 96
[2025-04-07 08:00] VITALS: BP 117/71; PULSE 80; RESP 20; TEMP 36.6; O2SAT 99
[2025-04-07 08:35] LABS: Magnesium 1.4 mg/dL (1.6-2.6)
[2025-04-07] MEDS: Lipase/Prot/Amylase 12/38/60K CAPSULE.DR 3 CAP PO ×3 (08:44→17:29)
[2025-04-07] MEDS: 0.9 % Sodium Chloride Flush 10 ML SYRINGE IVFLUSH ×2 (08:48→16:01)
--- NOTE | 2025-04-07 10:10 | P.PNGS_ITS ---
Subjective Subjective Date of Service: 04/07/25 Interval history: Was found to have large amount of gordo bloody drainage from old MIKI drain site from prior drainage of intraabdominal abscesses during past [place] at [facility] [place]. Reports mild pain at the site. Physical Exam 2 Vital Signs: Vital Signs: Last Vital Signs Temp 97.9 F 04/07/25 08:00 Pulse 80 04/07/25 08:00 Resp 20 04/07/25 08:00 BP 117/71 04/07/25 08:00 Pulse Ox 99 04/07/25 08:00 O2 Del Method Room Air 04/07/25 08:00 BMI result Body Mass Index 26.1 Const: General: comfortable, no acute distress and alert O rientation/consciousness: patient oriented x3 Resp: Effort & Inspection: normal respiratory effort GI: Other: cholecystostomy tube in place sanguineous/purulent drainage from old MIKI site just superior to ileostomy- large amount drained, culture obtained, area opened with snap no surrounding skin changes such as erythema Palpation (GI): Soft to palpation, Tenderness to palpation present (GI) (at old MKII site and cholecystostomy drain ) and no guarding Neuro: General: patient oriented x3 and moves all extremities Objective Data Active Medications Amiodarone HCl (Amiodarone Hcl 200 Mg Tablet) 200 mg PO DAILY [facility] Last Admin: 04/07/25 08:44 Dose: 200 mg Documented By: SEBASTIAN Lipase/Protease/Amylase (Lipase/Prot/Amylase 12/38/60k Capsule.Dr) 3 cap PO TIDWM [facility] Last Admin: 04/07/25 08:44 Dose: 3 cap Documented By: SEBASTIAN Apixaban (Apixaban 5 Mg Tablet) 5 mg PO BID [facility] Last Admin: 04/07/25 08:44 Dose: 5 mg Documented By: SEBASTIAN Atorvastatin Calcium (Atorvastatin Calcium 20 Mg Tablet) 20 mg PO BEDTIME [facility] Last Admin: 04/06/25 20:39 Dose: 20 mg Documented By: KIKA-DOLORES Calcium Carbonate (Calcium Carbonate 750 Mg Tab.Chew) 750 mg PO Q6H PRN PRN Reason: Heartburn Last Admin: 04/06/25 14:27 Dose: 750 mg Documented By: ANGELES Carisoprodol (Carisoprodol 350 Mg Tablet) 350 mg PO BEDTIME [facility] Last Admin: 04/06/25 20:39 Dose: Not Given Documented By: ALEXSANDER Non-Admin Reason: Patient Refused Colchicine (Colchicine 0.6 Mg Tablet) 0.6 mg PO DAILY [facility] Last Admin: 04/07/25 08:44 Dose: 0.6 mg Documented By: SEBASTIAN Hydromorphone HCl (Hydromorphone Hcl 0.5 Mg/0.5 Ml Syringe) 0.5 mg IVPUSH Q4H PRN; Protocol PRN Reason: Pain, Severe (Pain Scale 7-10) Last Admin: 04/07/25 09:31 Dose: 0.5 mg Documented By: SEBASTIAN Midodrine (Midodrine Hcl 10 Mg Tablet) 10 mg PO TID [facility] Last Admin: 04/07/25 08:44 Dose: 10 mg Documented By: SEBASTIAN Ondansetron HCl (Ondansetron Hcl 4 Mg/2 Ml Vial) 4 mg IVPUSH Q6H PRN PRN Reason: Nausea and Vomiting Last Admin: 04/05/25 15:47 Dose: 4 mg Documented By: ZA Pantoprazole Sodium (Pantoprazole Sodium 40 Mg/10 Ml Vial) 40 mg IVPUSH DAILY@0630 [facility] Last Admin: 04/07/25 05:30 Dose: 40 mg Documented By: SHARITA Potassium Chloride (Potassium Chloride Packet 20 Meq Packet) 40 meq PO BID [facility] Last Admin: 04/07/25 08:45 Dose: Not Given Documented By: SEBASTIAN Non-Admin Reason: Patient Refused Sodium Chloride (0.9 % Sodium Chloride Flush 10 Ml Syringe) 10 ml IVFLUSH QSHIFT [facility] Last Admin: 04/07/25 08:48 Dose: 10 ml Documented By: SEBASTIAN Labs 04/07/25 10:13 04/06/25 08:16 Labs: Laboratory Results - last 24 hr 04/07/25 07:27 Magnesium 1.4 L* Procedures Date of Service Date of Service: 04/07/25 Progress Note: A&P Assessment and plan (1) Abdominal wall abscess: Status: Acute Plan Large amount of thick sanguineous/purulent drainage from old MIKI drain site. May be infected hematoma from initial drain insertion. Culture obtained and sent. Has been on long course of IV abx and wound site remains open and draining, drainage now more thin appearing. F/u abscess culture. Keep old drain site covered while it continues to drain. Time Spent With Patient Time: Total time managing care of this patient today ____ minutes. Quality Stroke Does the patient have a stroke diagnosis?: No VTE Prior VTE?: No VTE Risk Level:: Medical - moderate - high VTE Device Contraindication: Treatment Not Indicated VTE Drug Contraindication: N/A - Med Ordered
[2025-04-07 10:38] LABS: Hematocrit 25.7 % (37.0-47.0); Hemoglobin 8.3 g/dl (12.0-16.0); Imm Gran Abs Auto 0.07 X10*3/uL (0.00-0.03); Imm Gran Pct Auto 0.6 % (0.0-0.4); Lymphocytes Absolute Auto 2.2 X10*3/uL (1.2-4.9); MANUAL DIFF FLAG SCAN; Mean Corpuscular HGB Conc 32.3 g/dl (31.0-35.0); Mean Corpuscular Hemoglobin 29.0 pg (27.0-33.0); Mean Corpuscular Volume 89.9 fL (80.0-98.0); NRBC Abs Auto 0.000 X10*3/uL (0.0-0.012); NRBC Pct Auto 0.0 /100WBC (0.0-0.2); Platelet Count 154 X10*3/uL (160-400); Red Blood Count 2.86 X10*6/uL (4.20-5.50); SCAN SMEAR FLAG 1; White Blood Count 11.4 X10*3/uL (4.8-10.8)
--- NOTE | 2025-04-07 10:43 | MHC.CM.PN ---
EMR REVIEWED, PER SURGICAL NOTES PT W/REMEDIOS BLOOD FROM OLD MIKI DRAIN (INTRAABD ABSCESS) AND MILD PAIN, NO PLAN FOR DC AT THIS TIME, CM WILL CONT TO FOLLOW DC NEEDS.
[2025-04-07 11:19] LABS: Anion Gap 11 (12-20); Blood Urea Nitrogen 10 mg/dL (9-16); Calcium 7.6 mg/dL (8.4-10.2); Carbon Dioxide 23 mmol/L (22-29); Chloride 104 mmol/L (96-108); Creatinine Clr Calc Pharmacy 101.2; Estimated Glomerular Filt Rate > 60; Potassium 3.4 mmol/L (3.3-5.1); Sodium 135 mmol/L (135-145)
[2025-04-07 12:00] VITALS: BP 115/69; PULSE 84; RESP 20; TEMP 36.8; O2SAT 99
--- NOTE | 2025-04-07 15:42 | HO.PM.IMPN ---
Subjective Subjective Date of Service: 04/07/25 Interval History: Episode of bleeding from previous MIKI drain site last night, no further bleeding this morning Still feels weak Refusing p.o. potassium replacement due to cyclical vomiting 06/13 RUQ pain with movment, no pain with rest Review of Systems Review of Systems: Yes all other systems are reviewed and are negative Physical Exam Exam: Exam: General: AOx3, no acute distress Resp: CTA bilaterally CVS: S1, S2, RRR GI: +BS, tender RUQ, no distention.dry dressing on R abd Skin: Warm, dry Neuro: Cranial nerves II-XII grossly intact bilaterally. Motor grossly intact bilaterally Extremities: No edema Psych: Appropriate affect Vital Signs: Vital Signs: Last Vital Signs Temp 98.3 F 04/07/25 12:00 Pulse 84 04/07/25 12:00 Resp 20 04/07/25 12:00 BP 115/69 04/07/25 12:00 Pulse Ox 99 04/07/25 12:00 O2 Del Method Room Air 04/07/25 12:00 BMI result Body Mass Index 26.1 Objective Data Active Medications Amiodarone HCl (Amiodarone Hcl 200 Mg Tablet) 200 mg PO DAILY [facility] Last Admin: 04/07/25 08:44 Dose: 200 mg Documented By: SEBASTIAN Lipase/Protease/Amylase (Lipase/Prot/Amylase /60k Capsule.) 3 cap PO TIDWM [facility] Last Admin: 04/07/25 12:29 Dose: 3 cap Documented By: SEBASTIAN Apixaban (Apixaban 5 Mg Tablet) 5 mg PO BID ARISTIDES On Hold: 04/07/25 15:30 Last Admin: 04/07/25 08:44 Dose: 5 mg Documented By: SEBASTIAN Atorvastatin Calcium (Atorvastatin Calcium 20 Mg Tablet) 20 mg PO BEDTIME [facility] Last Admin: 04/06/25 20:39 Dose: 20 mg Documented By: KIKA-WILEYZEJackie Calcium Carbonate (Calcium Carbonate 750 Mg Tab.Chew) 750 mg PO Q6H PRN PRN Reason: Heartburn Last Admin: 04/06/25 14:27 Dose: 750 mg Documented By: ANGELES Carisoprodol (Carisoprodol 350 Mg Tablet) 350 mg PO BEDTIME [facility] Last Admin: 04/06/25 20:39 Dose: Not Given Documented By: ALEXSANDER Non-Admin Reason: Patient Refused Colchicine (Colchicine 0.6 Mg Tablet) 0.6 mg PO DAILY [facility] Last Admin: 04/07/25 08:44 Dose: 0.6 mg Documented By: SEBASTIAN Cyanocobalamin (Cyanocobalamin (Vitamin B-12) 1,000 Mcg Tablet) 1,000 mcg PO DAILY [facility] Hydromorphone HCl (Hydromorphone Hcl 0.5 Mg/0.5 Ml Syringe) 0.5 mg IVPUSH Q4H PRN; Protocol PRN Reason: Pain, Severe (Pain Scale 7-10) Last Admin: 04/07/25 13:35 Dose: 0.5 mg Documented By: JAMARI Midodrine (Midodrine Hcl 10 Mg Tablet) 10 mg PO TID [facility] Last Admin: 04/07/25 08:44 Dose: 10 mg Documented By: SEBASTIAN Ondansetron HCl (Ondansetron Hcl 4 Mg/2 Ml Vial) 4 mg IVPUSH Q6H PRN PRN Reason: Nausea and Vomiting Last Admin: 04/05/25 15:47 Dose: 4 mg Documented By: ZA Pantoprazole Sodium (Pantoprazole Sodium 40 Mg/10 Ml Vial) 40 mg IVPUSH DAILY@0630 [facility] Last Admin: 04/07/25 05:30 Dose: 40 mg Documented By: SHARITA Potassium Chloride (Potassium Chloride Packet 20 Meq Packet) 40 meq PO BID [facility] Last Admin: 04/07/25 08:45 Dose: Not Given Documented By: SEBASTIAN Non-Admin Reason: Patient Refused Sodium Chloride (0.9 % Sodium Chloride Flush 10 Ml Syringe) 10 ml IVFLUSH QSHIFT [facility] Last Admin: 04/07/25 08:48 Dose: 10 ml Documented By: SEBASTIAN Labs 04/07/25 10:13 04/07/25 10:13 Labs: Laboratory Results - last 24 hr 04/07/25 04/07/25 07:27 10:13 MCV 89.9 MCH 29.0 MCHC 32.3 RDW 15.1 Plt Count 154 L MPV 9.7 Immature Gran % (Auto) 0.6 H Neut % (Auto) 67.9 Lymph % (Auto) 19.[address] [place] % (Auto) 8.9 Eos % (Auto) 2.7 Baso % (Auto) 0.3 Lymph # (Auto) 2.2 [place] # (Auto) 1.0 Eos # (Auto) 0.3 Baso # (Auto) 0.0 Abs Immat Gran (auto) 0.07 H Absolute Neuts (auto) 7.8 Absolute Nucleated RBC 0.000 Nucleated RBC % (auto) 0.0 Smear Tech's Comments VERIFIED Anion Gap 11 L Estim Creat Clear Calc 101.2 Estimated GFR > 60 Random Glucose 91 Calcium 7.6 L Magnesium 1.4 L* Microbiology Microbiology Results: Microbiology 04/07/25 10:04 Gram Stain - Final Abdomen - Abscess Assessment and Plan (1) Infected hematoma: Status: Acute (2) Hypomagnesemia: Status: Acute (3) Acute hypokalemia: Status: Acute Plan 65yo F with HTN, HLD, CAD, CHF, pAF on Eliquis, hx pancreatitis, recent subtotal colectomy/hernia repair at [facility] [place] on 01/07/2025 with resultant ileostomy bag followed by admission to the ICU at [facility] from 01/20-01/25 for pulmonary edema/pericardial effusion/anemia/new onset a flutter/intra-abdominal abscess/Finegoldia bacteremia after which patient was transferred to [facility] where she has abscesses drained; finished a course of antibiotics and discharged home on 02/17/25. Presented back to the ER on 02/18/25 overnight with a chief complaint of abdominal pain with question of cholecystitis ruled out, discharged home 02/27. Re-admitted 02/28 for abdominal pain and nausea along with vaginal spotting and BRBPR. She underwent sigmoidoscopy on 03/04/25; this showed rectovaginal fistula; likely she had bleeding from the fibroid diverting in to the short remaining rectal stump. She then underwent uterine artery embolization on 03/10/25. Re-admitted 03/30 to ICU for septic shock. Septic shock due to UTI + ?acute cholecystitis: Patient is off pressor support and stepped down from ICU on 04/03. Urine cultures with VRE and Klebsiella. Not significant as per ID. Was on linezolid which has been discontinued as per ID recommendations. Also underwent placement of cholecystostomy tube on 04/02. Appreciate general sx. Advanced diet. Cultures from tube negative till date. Had episode of bleeding from recent MIKI drain site (from surgery at [facility] [place]), seen by surgery who suggested hematoma with superimosed infection. wound culture pending. Acute kidney injury stage III: ATN from shock. Resolved and creatinine is at baseline Chronic hypokalemia/acute hypomagnesemia: IV K and mag. pt cannot tolerate PO K at all due to cyclic vomiting Chronic anemia: Hemoglobin above transfusion threshold Paroxysmal atrial fib: On amiodarone. holding eliquis due to bleeding episode Hold Coreg due to soft BP History of pancreatitis: On pancreatic enzyme supplementation Chronic pericarditis: On colchicine CAD: On statin. Hold beta-lokesh as above DVT prophylaxis: Eliquis Reason for continued hospitalization: Furhter surgical evaluation due to hematoma with superimposed infection Quality Stroke Does the patient have a stroke diagnosis?: No VTE Prior VTE?: No VTE Risk Level:: Medical - moderate - high VTE Device Contraindication: Treatment Not Indicated VTE Drug Contraindication: N/A - Med Ordered
[2025-04-07 16:00] VITALS: BP 127/66; PULSE 80; RESP 18; O2SAT 97
[2025-04-07 16:07] LABS: Hematocrit 24.8 % (37.0-47.0); Hemoglobin 8.3 g/dl (12.0-16.0); Mean Corpuscular HGB Conc 33.5 g/dl (31.0-35.0); Mean Corpuscular Hemoglobin 29.6 pg (27.0-33.0); Mean Corpuscular Volume 88.6 fL (80.0-98.0); NRBC Abs Auto 0.000 X10*3/uL (0.0-0.012); NRBC Pct Auto 0.0 /100WBC (0.0-0.2); Platelet Count 148 X10*3/uL (160-400); Red Blood Count 2.80 X10*6/uL (4.20-5.50); White Blood Count 11.4 X10*3/uL (4.8-10.8)
[2025-04-07 16:15] LABS: INTERNATIONAL NORM RATIO 2.5 (0.9-1.1); Prothrombin Time 28.5 SEC (10.9-12.4)
[2025-04-07 19:28] VITALS: BP 123/70; PULSE 85; RESP 18; TEMP 36.1; O2SAT 99
[2025-04-07 22:22] LABS: Hematocrit 23.6 % (37.0-47.0); Hemoglobin 8.1 g/dl (12.0-16.0); Mean Corpuscular HGB Conc 34.3 g/dl (31.0-35.0); Mean Corpuscular Hemoglobin 30.0 pg (27.0-33.0); Mean Corpuscular Volume 87.4 fL (80.0-98.0); NRBC Abs Auto 0.000 X10*3/uL (0.0-0.012); NRBC Pct Auto 0.0 /100WBC (0.0-0.2); Platelet Count 141 X10*3/uL (160-400); Red Blood Count 2.70 X10*6/uL (4.20-5.50); White Blood Count 9.8 X10*3/uL (4.8-10.8)
[2025-04-08] VITALS (8 sets, daily range): BP systolic 103–135; BP diastolic 55–73; PULSE 69–87; RESP 16–18; TEMP 36.3–37.1; O2SAT 97–99
[2025-04-08] MEDS: 0.9 % Sodium Chloride Flush 10 ML SYRINGE IVFLUSH ×3 (01:30→21:44)
[2025-04-08 06:54] LABS: Hematocrit 24.8 % (37.0-47.0); Hemoglobin 8.2 g/dl (12.0-16.0); Mean Corpuscular HGB Conc 33.1 g/dl (31.0-35.0); Mean Corpuscular Hemoglobin 29.4 pg (27.0-33.0); Mean Corpuscular Volume 88.9 fL (80.0-98.0); NRBC Abs Auto 0.000 X10*3/uL (0.0-0.012); NRBC Pct Auto 0.0 /100WBC (0.0-0.2); Platelet Count 166 X10*3/uL (160-400); Red Blood Count 2.79 X10*6/uL (4.20-5.50); White Blood Count 8.9 X10*3/uL (4.8-10.8)
[2025-04-08 07:08] LABS: Anion Gap 8 (12-20); Blood Urea Nitrogen 10 mg/dL (9-16); Calcium 7.4 mg/dL (8.4-10.2); Carbon Dioxide 26 mmol/L (22-29); Chloride 104 mmol/L (96-108); Creatinine Clr Calc Pharmacy 105.0; Estimated Glomerular Filt Rate > 60; Magnesium 1.5 mg/dL (1.6-2.6); Potassium 3.2 mmol/L (3.3-5.1); Sodium 135 mmol/L (135-145)
[2025-04-08] MEDS: Lipase/Prot/Amylase 12/38/60K CAPSULE.DR 3 CAP PO ×3 (09:26→16:44)
[2025-04-08] MEDS: Potassium Chloride/H20 10 MEQ/100 ML PIGGYBACK 100 MEQ IV ×4 (13:54→23:45)
--- NOTE | 2025-04-08 16:52 | HO.PM.IMPN ---
Subjective Subjective Date of Service: 04/08/25 Interval History: still having drainage from previous MIKI drain site, no significant bleeding no further vaginal bleeding pt insistent she will not go home without port for labs no currently having pain Review of Systems Review of Systems: Yes all other systems are reviewed and are negative Physical Exam Exam: Exam: General: AOx3, no acute distress Resp: CTA bilaterally CVS: S1, S2, RRR GI: +BS, generalized tenderness. Packing from wound with serosanguineous fluid. No significant drenching. Patient will not allow anybody to touch this aside from surgical PA, no distention Skin: Warm, dry Neuro: Cranial nerves II-XII grossly intact bilaterally. Motor grossly intact bilaterally Extremities: No LE edema Psych: Appropriate affect Vital Signs: Vital Signs: Last Vital Signs Temp 97.7 F 04/08/25 15:19 Pulse 87 04/08/25 15:19 Resp 16 04/08/25 15:19 BP 105/66 04/08/25 15:19 Pulse Ox 99 04/08/25 15:19 O2 Del Method Room Air 04/08/25 15:19 BMI result Body Mass Index 26.1 Objective Data Active Medications Amiodarone HCl (Amiodarone Hcl 200 Mg Tablet) 200 mg PO DAILY [facility] Last Admin: 04/08/25 09:26 Dose: 200 mg Documented By: SEBASTIAN Lipase/Protease/Amylase (Lipase/Prot/Amylase 12/38/60k Capsule.Dr) 3 cap PO TIDWM [facility] Last Admin: 04/08/25 16:44 Dose: 3 cap Documented By: SEBASTIAN Apixaban (Apixaban 5 Mg Tablet) 5 mg PO BID ARISTIDES On Hold: 04/07/25 15:30 Last Admin: 04/07/25 08:44 Dose: 5 mg Documented By: SEBASTIAN Atorvastatin Calcium (Atorvastatin Calcium 20 Mg Tablet) 20 mg PO BEDTIME [facility] Last Admin: 04/07/25 21:41 Dose: 20 mg Documented By: BUSSIEL Calcium Carbonate (Calcium Carbonate 750 Mg Tab.Chew) 750 mg PO Q6H PRN PRN Reason: Heartburn Last Admin: 04/08/25 16:45 Dose: 750 mg Documented By: SEBASTIAN Carisoprodol (Carisoprodol 350 Mg Tablet) 350 mg PO BEDTIME [facility] Last Admin: 04/07/25 21:23 Dose: Not Given Documented By: SEVEN Non-Admin Reason: Patient Refused Colchicine (Colchicine 0.6 Mg Tablet) 0.6 mg PO DAILY [facility] Last Admin: 04/08/25 09:26 Dose: 0.6 mg Documented By: SEBASTIAN Cyanocobalamin (Cyanocobalamin (Vitamin B-12) 1,000 Mcg Tablet) 1,000 mcg PO DAILY [facility] Last Admin: 04/08/25 09:26 Dose: 1,000 mcg Documented By: SEBASTIAN Hydromorphone HCl (Hydromorphone Hcl 0.5 Mg/0.5 Ml Syringe) 0.5 mg IVPUSH Q4H PRN; Protocol PRN Reason: Pain, Severe (Pain Scale 7-10) Last Admin: 04/08/25 13:38 Dose: 0.5 mg Documented By: YONG Midodrine (Midodrine Hcl 10 Mg Tablet) 10 mg PO TID [facility] Last Admin: 04/08/25 15:47 Dose: 10 mg Documented By: SEBASTIAN Ondansetron HCl (Ondansetron Hcl 4 Mg/2 Ml Vial) 4 mg IVPUSH Q6H PRN PRN Reason: Nausea and Vomiting Last Admin: 04/05/25 15:47 Dose: 4 mg Documented By: ZA Potassium Chloride (Potassium Chloride Packet 20 Meq Packet) 40 meq PO BID [facility] Last Admin: 04/08/25 09:30 Dose: Not Given Documented By: SEBASTIAN Non-Admin Reason: Patient Refused Sodium Chloride (0.9 % Sodium Chloride Flush 10 Ml Syringe) 10 ml IVFLUSH QSHIFT [facility] Last Admin: 04/08/25 15:50 Dose: Not Given Documented By: SEBASTIAN Non-Admin Reason: IV Running Labs 04/08/25 05:57 04/08/25 06:13 Labs: Laboratory Results - last 24 hr 04/07/25 04/08/25 04/08/25 22:15 05:57 06:13 MCV 87.4 88.9 MCH 30.0 29.4 MCHC 34.3 33.1 RDW 15.3 15.4 Plt Count 141 L 166 MPV 9.1 L 9.7 Absolute Nucleated RBC 0.000 0.000 Nucleated RBC % (auto) 0.0 0.0 Anion Gap 8 L Estim Creat Clear Calc 105.0 Estimated GFR > 60 Random Glucose 75 Calcium 7.4 L Magnesium 1.5 L Microbiology Microbiology Results: Microbiology 04/07/25 10:04 Gram Stain - Final Abdomen - Abscess Routine Culture - Preliminary Culture in progress. Assessment and Plan (1) Infected hematoma: Status: Acute (2) Acute hyponatremia: Status: Acute (3) Hypomagnesemia: Status: Acute (4) Ileostomy in place: Status: Acute Plan 65yo F with HTN, HLD, CAD, CHF, pAF on Eliquis, hx pancreatitis, recent subtotal colectomy/hernia repair at [facility] on 01/07/2025 with resultant ileostomy bag followed by admission to the ICU at [facility] from 01/20-01/25 for pulmonary edema/pericardial effusion/anemia/new onset a flutter/intra-abdominal abscess/Finegoldia bacteremia after which patient was transferred to [facility] where she has abscesses drained; finished a course of antibiotics and discharged home on 02/17/25. Presented back to the ER on 02/18/25 overnight with a chief complaint of abdominal pain with question of cholecystitis ruled out, discharged home 02/27. Re-admitted 02/28 for abdominal pain and nausea along with vaginal spotting and BRBPR. She underwent sigmoidoscopy on 03/04/25; this showed rectovaginal fistula; likely she had bleeding from the fibroid diverting in to the short remaining rectal stump. She then underwent uterine artery embolization on 03/10/25. Re-admitted 03/30 to ICU for septic shock. Septic shock due to UTI + ?acute cholecystitis: Patient is off pressor support and stepped down from ICU on 04/03. Urine cultures with VRE and Klebsiella. Not significant as per ID. Was on linezolid which has been discontinued as per ID recommendations. Also underwent placement of cholecystostomy tube on 04/02. Cultures from tube negative till date. plan for outpt management Had episode of bleeding from recent MIKI drain site yesterday (from surgery at [facility]), seen by surgery. wound culture pending. wound is open and draining. no indication for abx at this time surgery cleared pt for discharge. pt will need VNA services for dressing changes and cholecystostomy tube care Acute kidney injury stage III: ATN from shock. Resolved and creatinine is at baseline Chronic hypokalemia/acute hypomagnesemia: IV K and mag. pt cannot tolerate PO K at all due to cyclic vomiting Chronic anemia: Hemoglobin above transfusion threshold Paroxysmal atrial fib: On amiodarone. holding eliquis due to bleeding episode Hold Coreg due to soft BP History of pancreatitis: On pancreatic enzyme supplementation Chronic pericarditis: On colchicine CAD: On statin. Hold beta-lokesh as above DVT prophylaxis: Eliquis Reason for continued hospitalization: will need services for home care: drain and dressings, plan made after case managment is available to arrange services. plan to go home tomorrow. Quality Stroke Does the patient have a stroke diagnosis?: No VTE Prior VTE?: No VTE Risk Level:: Medical - moderate - high VTE Device Contraindication: Treatment Not Indicated VTE Drug Contraindication: N/A - Med Ordered
[2025-04-09] VITALS (7 sets, daily range): BP systolic 110–141; BP diastolic 56–73; PULSE 69–91; RESP 18–20; TEMP 36–36.5; O2SAT 97–100
[2025-04-09] MEDS: Potassium Chloride/H20 10 MEQ/100 ML PIGGYBACK 100 MEQ IV (00:46)
[2025-04-09] MEDS: Lipase/Prot/Amylase 12/38/60K CAPSULE.DR 3 CAP PO ×3 (08:07→16:09)
[2025-04-09 08:20] LABS: Hematocrit 26.5 % (37.0-47.0); Hemoglobin 8.5 g/dl (12.0-16.0); Mean Corpuscular HGB Conc 32.1 g/dl (31.0-35.0); Mean Corpuscular Hemoglobin 28.5 pg (27.0-33.0); Mean Corpuscular Volume 88.9 fL (80.0-98.0); NRBC Abs Auto 0.000 X10*3/uL (0.0-0.012); NRBC Pct Auto 0.0 /100WBC (0.0-0.2); Platelet Count 217 X10*3/uL (160-400); Red Blood Count 2.98 X10*6/uL (4.20-5.50); White Blood Count 9.9 X10*3/uL (4.8-10.8)
[2025-04-09] MEDS: 0.9 % Sodium Chloride Flush 10 ML SYRINGE IVFLUSH ×2 (08:37→16:10)
[2025-04-09 08:39] LABS: Anion Gap 11 (12-20); Blood Urea Nitrogen 9 mg/dL (9-16); Calcium 7.4 mg/dL (8.4-10.2); Carbon Dioxide 22 mmol/L (22-29); Chloride 104 mmol/L (96-108); Creatinine Clr Calc Pharmacy 90.0; Estimated Glomerular Filt Rate > 60; Magnesium 1.6 mg/dL (1.6-2.6); Potassium 4.1 mmol/L (3.3-5.1); Sodium 133 mmol/L (135-145)
--- NOTE | 2025-04-09 14:45 | MHC.CM.PN ---
Pt not ready to DC today, she is waiting for a port to be put in for blood draws. Her DCP: is home with [facility], they have been updated.
--- NOTE | 2025-04-09 16:03 | P.PNIM_ITS ---
Subjective Subjective Date of Service: 04/09/25 Interval History: No acute issues overnight. Adamantly requesting central tunnel cath prior to DC Review of Systems Denies chest pain Denies shortness of breath Denies nausea vomiting diarrhea Denies fever chills Physical Exam 2 Vital Signs: Vital Signs: Last Vital Signs Temp 96.8 F 04/09/25 14:56 Pulse 83 04/09/25 14:56 Resp 18 04/09/25 14:56 BP 128/69 04/09/25 15:46 Pulse Ox 99 04/09/25 14:56 O2 Del Method Room Air 04/09/25 14:56 BMI result Body Mass Index 26.1 Const: Other: Awake alert no acute distress Resp: Other: Clear to auscultation bilaterally no rales rhonchi or wheezes Cardio: Other: No S4; positive S1-S2; no S3 murmurs rubs or gallops GI: Other: Soft nontender nondistended normoactive bowel sounds Extrem: Other: No edema bilaterally Objective Data Active Medications Amiodarone HCl (Amiodarone Hcl 200 Mg Tablet) 200 mg PO DAILY [facility] Last Admin: 04/09/25 08:36 Dose: 200 mg Documented By: NABEEL Lipase/Protease/Amylase (Lipase/Prot/Amylase //60k Capsule.Dr) 3 cap PO TIDWM [facility] Last Admin: 04/09/25 11:23 Dose: 3 cap Documented By: NABEEL Apixaban (Apixaban 5 Mg Tablet) 5 mg PO BID ARISTIDES On Hold: 04/07/25 15:30 Last Admin: 04/07/25 08:44 Dose: 5 mg Documented By: SEBASTIAN Atorvastatin Calcium (Atorvastatin Calcium 20 Mg Tablet) 20 mg PO BEDTIME [facility] Last Admin: 04/08/25 21:43 Dose: 20 mg Documented By: CARMEN Calcium Carbonate (Calcium Carbonate 750 Mg Tab.Chew) 750 mg PO Q6H PRN PRN Reason: Heartburn Last Admin: 04/08/25 16:45 Dose: 750 mg Documented By: SEBASTIAN Carisoprodol (Carisoprodol 350 Mg Tablet) 350 mg PO BEDTIME [facility] Last Admin: 04/08/25 21:35 Dose: Not Given Documented By: CARMEN Non-Admin Reason: Patient Refused Colchicine (Colchicine 0.6 Mg Tablet) 0.6 mg PO DAILY [facility] Last Admin: 04/09/25 08:37 Dose: 0.6 mg Documented By: NABEEL Cyanocobalamin (Cyanocobalamin (Vitamin B-12) 1,000 Mcg Tablet) 1,000 mcg PO DAILY [facility] Last Admin: 04/09/25 08:36 Dose: 1,000 mcg Documented By: NABEEL Hydromorphone HCl (Hydromorphone Hcl 0.5 Mg/0.5 Ml Syringe) 0.5 mg IVPUSH Q4H PRN; Protocol PRN Reason: Pain, Severe (Pain Scale 7-10) Last Admin: 04/09/25 12:08 Dose: 0.5 mg Documented By: NABEEL Midodrine (Midodrine Hcl 10 Mg Tablet) 10 mg PO TID [facility] Last Admin: 04/09/25 15:46 Dose: Not Given Documented By: NABEEL Non-Admin Reason: BP out of range Ondansetron HCl (Ondansetron Hcl 4 Mg/2 Ml Vial) 4 mg IVPUSH Q6H PRN PRN Reason: Nausea and Vomiting Last Admin: 04/05/25 15:47 Dose: 4 mg Documented By: ZA Potassium Chloride (Potassium Chloride Packet 20 Meq Packet) 40 meq PO BID [facility] Last Admin: 04/09/25 08:22 Dose: Not Given Documented By: NABEEL Non-Admin Reason: Patient Refused Sodium Chloride (0.9 % Sodium Chloride Flush 10 Ml Syringe) 10 ml IVFLUSH QSHIFT [facility] Last Admin: 04/09/25 08:37 Dose: 10 ml Documented By: NABEEL Labs 04/09/25 07:56 04/09/25 07:56 Labs: Laboratory Results - last 24 hr 04/09/25 07:56 MCV 88.9 MCH 28.5 MCHC 32.1 RDW 15.2 Plt Count 217 D MPV 9.5 Absolute Nucleated RBC 0.000 Nucleated RBC % (auto) 0.0 Anion Gap 11 L Estim Creat Clear Calc 90.0 Estimated GFR > 60 Random Glucose 87 Calcium 7.4 L Magnesium 1.6 Microbiology Microbiology Results: Microbiology 04/07/25 10:04 Gram Stain - Final Abdomen - Abscess Routine Culture - Final Assessment and Plan (1) Sepsis: Status: Acute (2) MARKIE (acute kidney injury): Status: Acute Plan 65yo F with HTN, HLD, CAD, CHF, pAF on Eliquis, hx pancreatitis, recent subtotal colectomy/hernia repair at [facility] [place] on 01/07/2025 with resultant ileostomy bag followed by admission to the ICU at [facility] from 01/20-01/25 for pulmonary edema/pericardial effusion/anemia/new onset a flutter/intra-abdominal abscess/Finegoldia bacteremia after which patient was transferred to [facility] where she has abscesses drained; finished a course of antibiotics and discharged home on 02/17/25. Presented back to the ER on 02/18/25 overnight with a chief complaint of abdominal pain with question of cholecystitis ruled out, discharged home 02/27. Re-admitted 02/28 for abdominal pain and nausea along with vaginal spotting and BRBPR. She underwent sigmoidoscopy on 03/04/25; this showed rectovaginal fistula; likely she had bleeding from the fibroid diverting in to the short remaining rectal stump. She then underwent uterine artery embolization on 03/10/25. Re-admitted 03/30 to ICU for septic shock. 1.Septic shock due to UTI + ?acute cholecystitis(resolved) -cholecystostomy tube on 04/02. Cultures from tube negative till date. plan for outpt management -surgery cleared pt for discharge. pt will need VNA services for dressing changes and cholecystostomy tube care -patient requesting tunnel catheter for access prior to discharge. We will discuss in a.m. with Interventional 2.Acute kidney injury stage III: -responded to volume -at baseline 3.Chronic hypokalemia/acute hypomagnesemia: -repleted -follow renals/divalents 4.Paroxysmal atrial fib: -NSR at present -continue Eliquis 5.CAD -stable and well compensated Full code Eliquis Reason for continued hospitalization: will need services for home care: drain and dressings, plan made after case managment is available to arrange services. plan to go home tomorrow. Quality Stroke Does the patient have a stroke diagnosis?: No VTE Prior VTE?: No VTE Risk Level:: Medical - moderate - high VTE Device Contraindication: Treatment Not Indicated VTE Drug Contraindication: N/A - Med Ordered
[2025-04-10] VITALS (9 sets, daily range): BP systolic 118–133; BP diastolic 60–72; PULSE 81–92; RESP 16–20; TEMP 36–36.8; O2SAT 98–99
[2025-04-10] MEDS: 0.9 % Sodium Chloride Flush 10 ML SYRINGE IVFLUSH ×3 (00:32→16:57)
--- NOTE | 2025-04-10 15:12 | HO.PM.IMPN ---
Subjective Subjective Date of Service: 04/10/25 Interval History: No acute issues overnight. Awaiting on placement Review of Systems Denies chest pain Denies shortness of breath Denies nausea vomiting diarrhea Denies fever chills Physical Exam Vital Signs: Vital Signs: Last Vital Signs Temp 96.8 F 04/10/25 15:07 Pulse 85 04/10/25 15:07 Resp 16 04/10/25 15:07 BP 133/69 04/10/25 15:07 Pulse Ox 99 04/10/25 15:07 O2 Del Method Room Air 04/10/25 15:07 BMI result Body Mass Index 26.1 Const: Other: Awake alert no acute distress Resp: Other: Clear to auscultation bilaterally no rales rhonchi or wheezes Cardio: Other: No S4; positive S1-S2; no S3 murmurs rubs or gallops GI: Other: Soft nontender nondistended normoactive bowel sounds Extrem: Other: No edema bilaterally Objective Data Active Medications Amiodarone HCl (Amiodarone Hcl 200 Mg Tablet) 200 mg PO DAILY [facility] Last Admin: 04/10/25 08:49 Dose: 200 mg Documented By: RONY Lipase/Protease/Amylase (Lipase/Prot/Amylase /60k Capsule.Dr) 3 cap PO TIDWM [facility] Last Admin: 04/10/25 12:58 Dose: Not Given Documented By: RONY Non-Admin Reason: Patient Refused Apixaban (Apixaban 5 Mg Tablet) 5 mg PO BID [facility] On Hold: 04/07/25 15:30 Last Admin: 04/07/25 08:44 Dose: 5 mg Documented By: SEBASTIAN Atorvastatin Calcium (Atorvastatin Calcium 20 Mg Tablet) 20 mg PO BEDTIME [facility] Last Admin: 04/09/25 20:34 Dose: 20 mg Documented By: DAWIT Calcium Carbonate (Calcium Carbonate 750 Mg Tab.Chew) 750 mg PO Q6H PRN PRN Reason: Heartburn Last Admin: 04/08/25 16:45 Dose: 750 mg Documented By: SEBASTIAN Carisoprodol (Carisoprodol 350 Mg Tablet) 350 mg PO BEDTIME [facility] Last Admin: 04/09/25 20:35 Dose: Not Given Documented By: DAWIT Non-Admin Reason: Patient Refused Colchicine (Colchicine 0.6 Mg Tablet) 0.6 mg PO DAILY [facility] Last Admin: 04/10/25 08:49 Dose: 0.6 mg Documented By: RONY Cyanocobalamin (Cyanocobalamin (Vitamin B-12) 1,000 Mcg Tablet) 1,000 mcg PO DAILY [facility] Last Admin: 04/10/25 08:49 Dose: 1,000 mcg Documented By: RONY Hydromorphone HCl (Hydromorphone Hcl 0.5 Mg/0.5 Ml Syringe) 0.5 mg IVPUSH Q4H PRN; Protocol PRN Reason: Pain, Severe (Pain Scale 7-10) Last Admin: 04/10/25 12:55 Dose: 0.5 mg Documented By: RONY Midodrine (Midodrine Hcl 10 Mg Tablet) 10 mg PO TID [facility] Last Admin: 04/10/25 08:49 Dose: 10 mg Documented By: RONY Ondansetron HCl (Ondansetron Hcl 4 Mg/2 Ml Vial) 4 mg IVPUSH Q6H PRN PRN Reason: Nausea and Vomiting Last Admin: 04/05/25 15:47 Dose: 4 mg Documented By: ZA Potassium Chloride (Potassium Chloride Packet 20 Meq Packet) 40 meq PO BID [facility] Last Admin: 04/10/25 08:50 Dose: Not Given Documented By: RONY Non-Admin Reason: Patient Refused Sodium Chloride (0.9 % Sodium Chloride Flush 10 Ml Syringe) 10 ml IVFLUSH QSHIFT [facility] Last Admin: 04/10/25 08:50 Dose: 10 ml Documented By: RONY Labs 04/11/25 06:34 04/11/25 06:34 Microbiology Microbiology Results: Microbiology 04/07/25 10:04 Gram Stain - Final Abdomen - Abscess Routine Culture - Final Assessment and Plan (1) Abdominal wall abscess: Status: Acute (2) Sepsis: Status: Acute (3) Anemia: Status: Acute Plan 65yo F with HTN, HLD, CAD, CHF, pAF on Eliquis, hx pancreatitis, recent subtotal colectomy/hernia repair at [facility] on 01/07/2025 with resultant ileostomy bag followed by admission to the ICU at [facility] from 01/20-01/25 for pulmonary edema/pericardial effusion/anemia/new onset a flutter/intra-abdominal abscess/Finegoldia bacteremia after which patient was transferred to [facility] where she has abscesses drained; finished a course of antibiotics and discharged home on 02/17/25. Presented back to the ER on 02/18/25 overnight with a chief complaint of abdominal pain with question of cholecystitis ruled out, discharged home 02/27. Re-admitted 02/28 for abdominal pain and nausea along with vaginal spotting and BRBPR. She underwent sigmoidoscopy on 03/04/25; this showed rectovaginal fistula; likely she had bleeding from the fibroid diverting in to the short remaining rectal stump. She then underwent uterine artery embolization on 03/10/25. Re-admitted 03/30 to ICU for septic shock. 1.Septic shock due to UTI + ?acute cholecystitis(resolved) -cholecystostomy tube on 04/02. Cultures from tube negative till date. plan for outpt management -surgery cleared pt for discharge. pt will need VNA services for dressing changes and cholecystostomy tube care -Trent in a.m. 2.Acute kidney injury stage III: -responded to volume -at baseline 3.Chronic hypokalemia/acute hypomagnesemia: -repleted -follow renals/divalents 4.Paroxysmal atrial fib: -NSR at present -continue Eliquis 5.CAD -stable and well compensated Full code Eliquis Reason for continued hospitalization: will need services for home care: drain and dressings, plan made after case managment is available to arrange services. plan to go home tomorrow. Quality Stroke Does the patient have a stroke diagnosis?: No VTE Prior VTE?: No VTE Risk Level:: Medical - moderate - high VTE Device Contraindication: Treatment Not Indicated VTE Drug Contraindication: N/A - Med Ordered
[2025-04-10] MEDS: Lipase/Prot/Amylase 12/38/60K CAPSULE.DR 3 CAP PO (16:57)
[2025-04-10] MEDS: Potassium Chloride/H20 10 MEQ/100 ML PIGGYBACK 100 MEQ IV ×3 (21:23→23:24)
[2025-04-11] VITALS (13 sets, daily range): BP systolic 113–141; BP diastolic 60–78; PULSE 77–108; RESP 13–20; TEMP 36.2–36.7; O2SAT 98–100
[2025-04-11] MEDS: Potassium Chloride/H20 10 MEQ/100 ML PIGGYBACK 100 MEQ IV (00:25)
[2025-04-11] MEDS: 0.9 % Sodium Chloride Flush 10 ML SYRINGE IVFLUSH ×3 (01:27→15:15)
[2025-04-11 06:39] LABS: MANUAL DIFF FLAG NO
[2025-04-11 06:59] LABS: Alanine Aminotransferase 33 U/L (0-31); Albumin Level 2.7 g/dL (3.5-5.0); Alkaline Phosphatase 189 U/L (39-117); Anion Gap 13 (12-20); Aspartate Amino Transferase 104 U/L (5-31); Blood Urea Nitrogen 9 mg/dL (9-16); Calcium 7.7 mg/dL (8.4-10.2); Carbon Dioxide 20 mmol/L (22-29); Chloride 104 mmol/L (96-108); Creatinine Clr Calc Pharmacy 87.2; Estimated Glomerular Filt Rate > 60; Potassium 4.1 mmol/L (3.3-5.1); Sodium 133 mmol/L (135-145); Total Protein 6.8 g/dL (6.5-8.0)
[2025-04-11 07:07] LABS: Hematocrit 28.1 % (37.0-47.0); Hemoglobin 8.9 g/dl (12.0-16.0); Imm Gran Abs Auto 0.06 X10*3/uL (0.00-0.03); Imm Gran Pct Auto 0.5 % (0.0-0.4); Lymphocytes Absolute Auto 2.7 X10*3/uL (1.2-4.9); Mean Corpuscular HGB Conc 31.7 g/dl (31.0-35.0); Mean Corpuscular Hemoglobin 28.2 pg (27.0-33.0); Mean Corpuscular Volume 88.9 fL (80.0-98.0); NRBC Abs Auto 0.000 X10*3/uL (0.0-0.012); NRBC Pct Auto 0.0 /100WBC (0.0-0.2); Platelet Count 269 X10*3/uL (160-400); Red Blood Count 3.16 X10*6/uL (4.20-5.50); White Blood Count 12.4 X10*3/uL (4.8-10.8)
--- NOTE | 2025-04-11 14:43 | HO.PM.IMPN ---
Subjective Subjective Date of Service: 04/11/25 Interval History: No acute issues overnight. Review of Systems Denies chest pain Denies shortness of breath Denies nausea vomiting diarrhea Denies fever chills Physical Exam Vital Signs: Vital Signs: Last Vital Signs Temp 98.1 F 04/11/25 11:44 Pulse 90 04/11/25 11:44 Resp 20 04/11/25 11:44 BP 132/72 04/11/25 11:44 Pulse Ox 100 04/11/25 11:44 O2 Del Method Room Air 04/11/25 11:44 BMI result Body Mass Index 26.1 Const: Other: Awake alert no acute distress Resp: Other: Clear to auscultation bilaterally no rales rhonchi or wheezes Cardio: Other: No S4; positive S1-S2; no S3 murmurs rubs or gallops GI: Other: Soft nontender nondistended normoactive bowel sounds Extrem: Other: No edema bilaterally Objective Data Active Medications Amiodarone HCl (Amiodarone Hcl 200 Mg Tablet) 200 mg PO DAILY [facility] Last Admin: 04/11/25 10:30 Dose: 200 mg Documented By: RONY Lipase/Protease/Amylase (Lipase/Prot/Amylase 12/38/60k Capsule.Dr) 3 cap PO TIDWM [facility] Last Admin: 04/11/25 12:24 Dose: Not Given Documented By: RONY Non-Admin Reason: Patient Refused Apixaban (Apixaban 5 Mg Tablet) 5 mg PO BID [facility] On Hold: 04/07/25 15:30 Last Admin: 04/07/25 08:44 Dose: 5 mg Documented By: SEBASTIAN Atorvastatin Calcium (Atorvastatin Calcium 20 Mg Tablet) 20 mg PO BEDTIME [facility] Last Admin: 04/10/25 21:08 Dose: 20 mg Documented By: KIKA-DESSK Calcium Carbonate (Calcium Carbonate 750 Mg Tab.Chew) 750 mg PO Q6H PRN PRN Reason: Heartburn Last Admin: 04/08/25 16:45 Dose: 750 mg Documented By: SEBASTIAN Colchicine (Colchicine 0.6 Mg Tablet) 0.6 mg PO DAILY [facility] Last Admin: 04/11/25 10:30 Dose: 0.6 mg Documented By: RONY Cyanocobalamin (Cyanocobalamin (Vitamin B-12) 1,000 Mcg Tablet) 1,000 mcg PO DAILY [facility] Last Admin: 04/11/25 10:30 Dose: 1,000 mcg Documented By: RONY Hydromorphone HCl (Hydromorphone Hcl 0.5 Mg/0.5 Ml Syringe) 0.5 mg IVPUSH Q4H PRN; Protocol PRN Reason: Pain, Severe (Pain Scale 7-10) Last Admin: 04/11/25 10:31 Dose: 0.5 mg Documented By: RONY Midodrine (Midodrine Hcl 10 Mg Tablet) 10 mg PO TID [facility] Last Admin: 04/11/25 10:30 Dose: Not Given Documented By: RONY Non-Admin Reason: Elevated Blood Pressure Ondansetron HCl (Ondansetron Hcl 4 Mg/2 Ml Vial) 4 mg IVPUSH Q6H PRN PRN Reason: Nausea and Vomiting Last Admin: 04/11/25 10:37 Dose: 4 mg Documented By: RONY Potassium Chloride (Potassium Chloride Packet 20 Meq Packet) 40 meq PO BID [facility] Last Admin: 04/11/25 10:27 Dose: Not Given Documented By: RONY Non-Admin Reason: Patient Refused Sodium Chloride (0.9 % Sodium Chloride Flush 10 Ml Syringe) 10 ml IVFLUSH QSHIFT [facility] Last Admin: 04/11/25 10:31 Dose: 10 ml Documented By: RONY Labs 04/11/25 06:34 04/11/25 06:34 Labs: Laboratory Results - last 24 hr 04/11/25 06:34 MCV 88.9 MCH 28.2 MCHC 31.7 RDW 15.4 Plt Count 269 MPV 9.8 Immature Gran % (Auto) 0.5 H Neut % (Auto) 66.5 Lymph % (Auto) 21.7 [place] % (Auto) 6.7 Eos % (Auto) 3.8 Baso % (Auto) 0.8 Lymph # (Auto) 2.7 [place] # (Auto) 0.8 Eos # (Auto) 0.5 H Baso # (Auto) 0.1 Abs Immat Gran (auto) 0.06 H Absolute Neuts (auto) 8.3 Absolute Nucleated RBC 0.000 Nucleated RBC % (auto) 0.0 Anion Gap 13 Estim Creat Clear Calc 87.2 Estimated GFR > 60 Fasting Glucose 78 Calcium 7.7 L Total Bilirubin 0.5 AST 104 H ALT 33 H Alkaline Phosphatase 189 H Total Protein 6.8 Albumin 2.7 L Assessment and Plan (1) UTI (urinary tract infection): Status: Acute Plan 65yo F with HTN, HLD, CAD, CHF, pAF on Eliquis, hx pancreatitis, recent subtotal colectomy/hernia repair [place] [facility] on 01/07/2025 with resultant ileostomy bag followed by admission to the ICU at [facility] from 01/20-01/25 for pulmonary edema/pericardial effusion/anemia/new onset a flutter/intra-abdominal abscess/Finegoldia bacteremia after which patient was transferred to [facility] where she has abscesses drained; finished a course of antibiotics and discharged home on 02/17/25. Presented back to the ER on 02/18/25 overnight with a chief complaint of abdominal pain with question of cholecystitis ruled out, discharged home 02/27. Re-admitted 02/28 for abdominal pain and nausea along with vaginal spotting and BRBPR. She underwent sigmoidoscopy on 03/04/25; this showed rectovaginal fistula; likely she had bleeding from the fibroid diverting in to the short remaining rectal stump. She then underwent uterine artery embolization on 03/10/25. Re-admitted 03/30 to ICU for septic shock. 1.Septic shock due to UTI + ?acute cholecystitis(resolved) -cholecystostomy tube on 04/02. Cultures from tube negative till date. plan for outpt management -surgery cleared pt for discharge. pt will need VNA services for dressing changes and cholecystostomy tube care -subcu port today 2.Acute kidney injury stage III: -responded to volume -at baseline 3.Chronic hypokalemia/acute hypomagnesemia: -repleted -follow renals/divalents 4.Paroxysmal atrial fib: -NSR at present -continue Eliquis 5.CAD -stable and well compensated Full code Eliquis Reason for continued hospitalization: will need services for home care: drain and dressings, plan made after case managment is available to arrange services. plan to go home tomorrow. Quality Stroke Does the patient have a stroke diagnosis?: No VTE Prior VTE?: No VTE Risk Level:: Medical - moderate - high VTE Device Contraindication: Treatment Not Indicated VTE Drug Contraindication: N/A - Med Ordered
--- NOTE | 2025-04-11 15:13 | MHC.CM.PN ---
Addendum entered by Laura Rasmussen RN 04/11/25 16:28: PLEASE SEND SUBQ PORT REPORT TO [facility]. Original Note: CM SPOKE W/[facility] LIAISON WHO REPORTED THEY CAN SUPPLY SUQ PORT SUPPLIES, PT MAY HAVE OOP COST AND WILL CONTACT PT IF NEEDED, FLUSH ORDERS FAXED TO [facility] HOWEVER PER HOSPITALIST PT WILL NEED TO FOLLOW UP W/PCP FOR LAB ORDERS AND MANAGEMENT OF PORT. [facility] UPDATED VIA CAREPORT, CM DID REQUEST ACCESS/FLUSHING ORDERS BE ADDED TO DC SUMMARY AND MESSAGE RELAYED TO HOSPITALIST. ANTIC PT WILL DC HOME TOMORROW W/[facility]
--- NOTE | 2025-04-11 22:03 | PC.NURSE ---
pt refused potassium stating it makes her stomach upset.
[2025-04-12 03:14] VITALS: BP 105/60; PULSE 86; RESP 16; TEMP 36.6; O2SAT 97
[2025-04-12 07:09] VITALS: BP 118/74; PULSE 89; RESP 16; TEMP 36.9; O2SAT 97
[2025-04-12] MEDS: Lipase/Prot/Amylase 12/38/60K CAPSULE.DR 3 CAP PO (08:35)
[2025-04-12 11:31] VITALS: BP 134/79; PULSE 99; RESP 17; TEMP 36.6; O2SAT 100
--- NOTE | 2025-04-12 12:46 | PM.DS ---
DS: Providers Provider Date of Service: 04/12/25 Date of admission: 03/30/25 19:37 Date of discharge: 04/12/25 Primary care physician: Joi Rebollar MD Consults: 03/30/25 21:34 Consult to General Surgery Routine Consulting Provider: [facility] General Surgeons Reason for consultation: CT:cholelithiasis versus gallbladder sludge versus superimposed acute j luis Has provider been notified: Yes 04/03/25 12:48 Consult to Infectious Diseases Routine Consulting Provider: [facility] Infectious Disease Center Reason for consultation: septic shock uti, ?abd infection DS: Diagnosis Discharge Diagnosis (1) UTI (urinary tract infection): Status: Acute DS: Summary Hospital Course Hospital Course: 65yo F with HTN, HLD, CAD, CHF, pAF on Eliquis, hx pancreatitis, recent subtotal colectomy/hernia repair [place] [facility] on 01/07/2025 with resultant ileostomy bag followed by admission to the ICU at [facility] from 01/20-01/25 for pulmonary edema/pericardial effusion/anemia/new onset a flutter/intra-abdominal abscess/Finegoldia bacteremia after which patient was transferred to [facility] where she has abscesses drained; finished a course of antibiotics and discharged home on 02/17/25. Presented back to the ER on 02/18/25 overnight with a chief complaint of abdominal pain with question of cholecystitis ruled out, discharged home 02/27. Re-admitted 02/28 for abdominal pain and nausea along with vaginal spotting and BRBPR. She underwent sigmoidoscopy on 03/04/25; this showed rectovaginal fistula; likely she had bleeding from the fibroid diverting in to the short remaining rectal stump. She then underwent uterine artery embolization on 03/10/25. Re-admitted 03/30 to ICU for septic shock. Hospital Course Patient is off pressor support and stepped down from ICU on 04/03. Urine cultures with VRE and Klebsiella. Also underwent placement of cholecystostomy tube on 04/02. Was maintained on IV Zosyn and Zyvox. Seen in consultation by General surgery who recommended placement of a cholecystostomy tube which was placed 04/02. At this time there is minimal drainage from tube and it will be removed as outpatient. Chronic issues with hypokalemia/hypomagnesemia necessitated need for placement of a central port. She completed a course of IV antibiotics while hospitalized; seen by ID who recommended no further antibiotics. At this time she will be discharged to follow up with the PCP; she will need arrangements to have her port flushed every 4-6 weeks. This can be arranged by PCP Time Attestation Discharge Coordination Time (in mins): 35 Quality: Safe Use of Opioids Does Pt have an Active Cancer Diagnosis on the Problem List?: No Quality: Stroke Does the patient have a stroke diagnosis?: No Physical Exam Vital Signs: Vital Signs: Last Vital Signs Temp 97.8 F 04/12/25 11:31 Pulse 99 04/12/25 11:31 Resp 17 04/12/25 11:31 BP 134/79 04/12/25 11:31 Pulse Ox 100 04/12/25 11:31 O2 Del Method Room Air 04/12/25 11:31 BMI result Body Mass Index 26.1 Const: Other: Awake alert no acute distress Resp: Other: Clear to auscultation bilaterally no rales rhonchi or wheezes Cardio: Other: No S4; positive S1-S2; no S3 murmurs rubs or gallops GI: Other: Soft nontender nondistended normoactive bowel sounds Extrem: Other: No edema bilaterally DS: Data Data Completed and Pending Completed studies during hospitalization [Text1]: Procedures Bypass Ileum to Cutaneous, Open Approach (11/30/23) Bypass Sigmoid Colon to Cutaneous, Open Approach (05/04/23) Dilation of Left Ureter with Intraluminal Device, Via Natural or Artificial Opening Endoscopic (05/04/23) Drainage of Pelvic Cavity, Percutaneous Approach (05/04/23) Excision of Sigmoid Colon, Open Approach (05/04/23) Excision of Small Intestine, Open Approach (05/04/23) Extraction of Endometrium, Via Natural or Artificial Opening, Diagnostic (02/28/25) Fluoroscopy of Left Kidney, Ureter and Bladder (05/04/23) Insertion of Infusion Device into Right Brachial Vein, Percutaneous Approach (11/30/23) Insertion of Infusion Device into Superior Vena Cava, Percutaneous Approach (01/15/25) Inspection of Lower Intestinal Tract, Via Natural or Artificial Opening Endoscopic (02/28/25) Introduction of Vasopressor into Central Vein, Percutaneous Approach (01/15/25) Introduction of Vasopressor into Peripheral Vein, Percutaneous Approach (05/04/23) Occlusion of Left Uterine Artery with Intraluminal Device, Percutaneous Approach (02/28/25) Occlusion of Right Uterine Artery with Intraluminal Device, Percutaneous Approach (02/28/25) Release Peritoneum, Open Approach (11/30/23) Reposition Rectum, Open Approach (11/30/23) Transfusion of Nonautologous Red Blood Cells into Peripheral Vein, Percutaneous Approach (02/28/25) Ultrasonography of Superior Vena Cava, Guidance (01/15/25) Discharge Plan Discharge Anticipated Discharge Date/Time: 04/12/25 12:32 Patient Disposition: Home, Self-Care Discharge Diagnosis: Acute cholecystitis Referrals: Joi Rebollar MD [Primary Care Provider, Internal Medicine] - 1 Week Alvaro Oneil MD [Physician, General Surgery] - 1 Week Discharge Medications: New hydromorphone [Dilaudid] 4 mg tablet 4 mg PO Q4H PRN (Reason: pain) Qty: 30 0RF Rx Instructions: Partial Fill upon patient request. ondansetron HCl 4 mg tablet 4 mg PO DAILY PRN (Reason: nausea and vomiting) 5 Days Qty: 20 0RF Continued atorvastatin 20 mg tablet 20 mg PO BEDTIME Qty: 90 3RF mirtazapine 15 mg tablet 15 mg PO BEDTIME multivit with min-folic acid [Multivitamin Gummies] 200 mcg Tablet,Chewable 1 tab PO DAILY carisoprodol 350 mg tablet 350 mg PO BEDTIME amiodarone 200 mg tablet 200 mg PO DAILY colchicine 0.6 mg tablet 0.6 mg PO DAILY Eliquis 5 mg tablet 5 mg PO BID esomeprazole magnesium [Nexium] 20 mg capsule,delayed release(DR/EC) 20 mg PO DAILY@0630 magnesium oxide 400 mg (241.3 mg magnesium) Tablet 800 mg PO DAILY Qty: 60 0RF Creon 12,000-38,000 -60,000 unit Capsule,Delayed Release(Dr/Ec) 3 cap PO TIDWM Qty: 270 0RF potassium chloride 20 mEq Tablet Extended Release 20 meq PO BID cyanocobalamin (vitamin B-12) [Vitamin B-12] 1,000 mcg Tablet 1,000 mcg PO DAILY carvedilol [Coreg] 6.25 mg tablet 6.25 mg PO BID 90 Days Qty: 180 3RF Rx Instructions: must administer with a meal/food Discontinued hydromorphone 2 mg tablet 1 - 2 mg PO Q8H PRN (Reason: pain) Qty: 20 0RF Discharge Orders: Discharge Order (Routine); Ordered 04/12/25 Ordered By: Nitin Mccloud Diet: Advance to usual diet Activity on Discharge: As tolerated Stand Alone Forms: Patient Portal Discharge page Print Language: Belarusian Activity Restrictions/Additional Instructions: Follow up in the general surgery office in 1-2 weeks. ([phone]) Cholecystostomy drain care- empty bulb BID and as needed and place back to suction. Record output. Bring record to follow up appointment. Change dressing at old MIKI drain site daily with dry gauze and tape. Keep covered while it continues to drain. Care Plan Goals: Continue all medicines as taken prior to your hospitalization. Health Concerns: Call your PCP on Monday to arrange flushes for your new port Plan of Treatment: Follow up with PCP as scheduled Assessment: See discharge summary
--- NOTE | 2025-04-12 12:51 | W.MHC.F2F ---
Service Date Service Date: 04/12/25 Encounter Date of encounter: 04/12/25 Encounter: Acute hospitalization Reasons for Services Signs and symptoms assessed: We will need care of J-tube site with periodic drainage and also flushing of port every 6 weeks. Reason for residential: central line care, medication management and other (Monitor/care for MIKI drain into removed) Homebound: Leaving the home is medically contraindicated at this time without the asist of a device and/or another person due th the listed conditions above and below. Reason homebound: unsteady gait / fall risk and poor balance / fall risk Certification: Based on the above findings, I certify that this patient is confined to the home and needs intermittent residential care, physical therapy and/or speech therapy, or continues to need occupational therapy. The patient is under my care, and I have initiated the establishment of the plan of care. The patient will be followed by a physician who will periodically review the plan of care. Time Spent With Patient Time: Total time managing care of this patient today ____ minutes.
--- NOTE | 2025-04-12 14:38 | MHC.CM.PN ---
PT CLEARED TO DC TODAY [facility] AND [facility] NOTIFIED VIA C[facility]PORT [facility] WILL BE UNABLE TO FOLLOW UP BEFORE RECEIVING THE IR REPORT, HOWEVER IT WAS NOT COMPLETED CM WILL FOLLOW UP MONDAY -PT HAS NO IMMEDIATE HOME INFUSION CO NEEDS
--- NOTE | 2025-04-14 14:17 | MHC.CM.PN ---
POST DC NOTE, CM CONTACTED RADIOLOGY TO ENQUIRE ON REPORT FOR TUNNEL CATH D/T REPORT NOT BEING AND CM NEEDING TO SEND TO [facility], PER RADIOLOGY THEY WILL LOOK INTO IT, CM WILL CONT TO CHECK ON REPORT.
--- NOTE | 2025-04-15 12:54 | MHC.CM.PN ---
POST DC NOTE, TUNNEL CATH REPORT IN AND FAXED TO [facility] AT [phone]. CM RECEIVED CALL BACK FROM PCP OFFICE AND SPOKE W/CRISTY WHO REQUESTED REF FOR SUPPLIES THEY DO NOT HAVE THEM IN OFFICE, CRISTY AWARE PT WILL HAVE [facility] FOR DELIVERY OF SUPPLIES AND [facility] CAN DO FLUSHES, CRISTY REPORTS SHE LET DR. TANISHA HERNÁNDEZNA WILL SEND [facility] ORDERS FOR FLUSHES/CARE NEEDED.
== END 2025-04-12 13:42 | disposition home health service (06) | DRG 871 ==
LOC: HO.ED 19:07 → HO.EDOVER 19:49 → HO.ICU 19:49 → HO.IMC 04-03 09:38
PROVIDERS: Emergency Medicine; Internal Medicine Critical Care Medicine; Internal Medicine Pulmonary Disease; Physician Assistant; Physician Assistant Medical; Student in an Organized Health Care Education/Training Program; Admitting Provider Registered Nurse Community Health; Emergency Provider Emergency Medicine; PCP Internal Medicine; Visit Provider Hospitalist
DX: A41.9 Sepsis, unspecified organism (principal); N17.0 Acute kidney failure with tubular necrosis; R65.21 Severe sepsis with septic shock; E87.1 Hypo-osmolality and hyponatremia; K43.3 Parastomal hernia with obstruction, without gangrene; N39.0 Urinary tract infection, site not specified; I31.9 Disease of pericardium, unspecified; L02.211 Cutaneous abscess of abdominal wall; K81.0 Acute cholecystitis; I25.10 Atherosclerotic heart disease of native coronary artery without angina pectoris; I11.0 Hypertensive heart disease with heart failure; I48.0 Paroxysmal atrial fibrillation; E86.1 Hypovolemia; E83.39 Other disorders of phosphorus metabolism; E83.42 Hypomagnesemia; E87.6 Hypokalemia; N93.9 Abnormal uterine and vaginal bleeding, unspecified; D64.9 Anemia, unspecified; I50.9 Heart failure, unspecified; Z20.822 Contact with and (suspected) exposure to COVID-19; Z93.2 Ileostomy status; Z87.891 Personal history of nicotine dependence; Z79.01 Long term (current) use of anticoagulants; Z79.899 Other long term (current) drug therapy
CPT/HCPCS: 36415; 36561; 49406; 71045; 74176; 80048; 80053; 80076; 80307; 81001; 82010; 82803; 82947; 83605; 83690; 83735; 83880; 83930; 83935; 84100; 84145; 84300; 84443; 84484; 85025; 85027; 85610; 86140; 86850; 86900; 86901; 87040; 87070; 87086; 87088; 87186; 87205; 87637; 87640; 87641; 93005; 97110; 97116; 97162; 99285; C1729; C1769; C1788; J0131; J0690; J0692; J1171; J1642; J1644; J1650; J1720; J2003; J2020; J2250; J2405; J2470; J2543; J3010; J3475; J3480; J7120; P9047

== ENCOUNTER → 2025-03-30 13:43 | Outpatient (BNV) | payer MEDICARE, SELFPAY | PROVIDERS: Admitting Provider Registered Nurse Community Health; Emergency Provider Emergency Medicine; PCP Internal Medicine; Visit Provider Internal Medicine Cardiovascular Disease | DX: R94.31 Abnormal electrocardiogram [ECG] [EKG] (principal); R03.1 Nonspecific low blood-pressure reading; E83.42 Hypomagnesemia | CPT/HCPCS: 93010 ==

== ENCOUNTER → 2025-03-30 16:14 | Outpatient (BNV) | payer MEDICARE, SELFPAY | PROVIDERS: Emergency Provider Emergency Medicine; PCP Internal Medicine; Visit Provider Radiology Diagnostic Radiology | DX: K74.60 Unspecified cirrhosis of liver (principal); K46.9 Unspecified abdominal hernia without obstruction or gangrene; Z45.2 Encounter for adjustment and management of vascular access device | CPT/HCPCS: 71045; 74176 ==

== ENCOUNTER 2025-03-30 19:37 | Outpatient (BNV) | payer MEDICARE, SELFPAY | END 2025-04-02 13:32 | PROVIDERS: Admitting Provider Registered Nurse Community Health; Emergency Provider Emergency Medicine; PCP Internal Medicine | DX: K81.0 Acute cholecystitis (principal); Z48.03 Encounter for change or removal of drains | CPT/HCPCS: 49406 ==

== ENCOUNTER 2025-03-30 19:37 | Outpatient (BNV) | payer MEDICARE, SELFPAY | END 2025-04-11 15:00 | PROVIDERS: Admitting Provider Registered Nurse Community Health; Emergency Provider Emergency Medicine; PCP Internal Medicine | DX: Z45.2 Encounter for adjustment and management of vascular access device (principal); E04.2 Nontoxic multinodular goiter | CPT/HCPCS: 36561; 36589; 76937; 77001 ==

== ENCOUNTER 2025-03-30 19:37 | Outpatient (BNV) | payer MEDICARE, SELFPAY | END 2025-03-31 05:35 | PROVIDERS: Admitting Provider Registered Nurse Community Health; Emergency Provider Emergency Medicine; PCP Internal Medicine; Visit Provider Internal Medicine Cardiovascular Disease | DX: I49.3 Ventricular premature depolarization (principal) | CPT/HCPCS: 93010 ==

== ENCOUNTER 2025-03-30 19:37 | Outpatient (BNV) | payer MEDICARE, SELFPAY | END 2025-04-02 18:01 | PROVIDERS: Admitting Provider Registered Nurse Community Health; Emergency Provider Emergency Medicine; PCP Internal Medicine; Visit Provider Internal Medicine Cardiovascular Disease | DX: R94.31 Abnormal electrocardiogram [ECG] [EKG] (principal); R07.9 Chest pain, unspecified | CPT/HCPCS: 93010 ==

== ENCOUNTER → 2025-03-30 19:37 | Outpatient (BNV) | payer MEDICARE, SELFPAY | PROVIDERS: Admitting Provider Registered Nurse Community Health; Emergency Provider Emergency Medicine; PCP Internal Medicine; Visit Provider Internal Medicine | DX: A41.9 Sepsis, unspecified organism (principal); I95.9 Hypotension, unspecified | CPT/HCPCS: 99232 ==

== ENCOUNTER → 2025-03-30 19:37 | Outpatient (BNV) | payer MEDICARE, SELFPAY | PROVIDERS: Admitting Provider Registered Nurse Community Health; Emergency Provider Emergency Medicine; PCP Internal Medicine; Visit Provider Student in an Organized Health Care Education/Training Program | DX: A41.9 Sepsis, unspecified organism (principal); R65.21 Severe sepsis with septic shock | CPT/HCPCS: 99232; 99233 ==

== ENCOUNTER → 2025-03-30 19:37 | Outpatient (BNV) | payer MEDICARE, SELFPAY | PROVIDERS: Admitting Provider Registered Nurse Community Health; Emergency Provider Emergency Medicine; PCP Internal Medicine; Visit Provider Physician Assistant Surgical | DX: A41.9 Sepsis, unspecified organism (principal); K81.0 Acute cholecystitis | CPT/HCPCS: 99222; 99232 ==

== ENCOUNTER → 2025-03-30 19:37 | Outpatient (BNV) | payer MEDICARE, SELFPAY | PROVIDERS: Admitting Provider Registered Nurse Community Health; Emergency Provider Emergency Medicine; PCP Internal Medicine; Visit Provider Internal Medicine Critical Care Medicine | DX: A41.9 Sepsis, unspecified organism (principal); I95.9 Hypotension, unspecified; K81.0 Acute cholecystitis; R10.9 Unspecified abdominal pain; N17.9 Acute kidney failure, unspecified; E83.42 Hypomagnesemia; E87.1 Hypo-osmolality and hyponatremia; I25.10 Atherosclerotic heart disease of native coronary artery without angina pectoris | CPT/HCPCS: 99233; 99291 ==

== ENCOUNTER 2025-04-22 09:31 | Outpatient (REF) | payer MEDICARE, SELFPAY ==
[2025-04-22 10:39] LABS: MANUAL DIFF FLAG NO
[2025-04-22 10:45] LABS: Hematocrit 28.7 % (37.0-47.0); Hemoglobin 9.2 g/dl (12.0-16.0); Imm Gran Abs Auto 0.10 X10*3/uL (0.00-0.03); Imm Gran Pct Auto 0.8 % (0.0-0.4); Lymphocytes Absolute Auto 2.0 X10*3/uL (1.2-4.9); Mean Corpuscular HGB Conc 32.1 g/dl (31.0-35.0); Mean Corpuscular Hemoglobin 28.4 pg (27.0-33.0); Mean Corpuscular Volume 88.6 fL (80.0-98.0); NRBC Abs Auto 0.000 X10*3/uL (0.0-0.012); NRBC Pct Auto 0.0 /100WBC (0.0-0.2); Platelet Count 358 X10*3/uL (160-400); Red Blood Count 3.24 X10*6/uL (4.20-5.50); White Blood Count 13.3 X10*3/uL (4.8-10.8)
[2025-04-22 11:34] LABS: Alanine Aminotransferase 17 U/L (0-31); Albumin Level 2.9 g/dL (3.5-5.0); Alkaline Phosphatase 206 U/L (39-117); Anion Gap 15 (12-20); Aspartate Amino Transferase 65 U/L (5-31); Blood Urea Nitrogen 25 mg/dL (9-16); Calcium 7.7 mg/dL (8.4-10.2); Carbon Dioxide 27 mmol/L (22-29); Chloride 93 mmol/L (96-108); Cholesterol 53 mg/dL (<200); Estimated Glomerular Filt Rate 31; HDL Cholesterol 11 mg/dL (>40); Iron 43 mcg/dL (30-160); Magnesium 1.5 mg/dL (1.6-2.6); Percent Iron Saturation 31 % (15-50); Potassium 4.0 mmol/L (3.3-5.1); Sodium 131 mmol/L (135-145); Total Iron Binding Capacity 138 mcg/dL (228-428); Total Protein 7.2 g/dL (6.5-8.0); Triglycerides 97 mg/dL (<150); Unsaturated Iron Binding 95 ug/dL
--- OUTSIDE RECORDS SUMMARY | 2025-04-22 11:59 | XMS_ITS | Encounter Summary ---
Author Organization [facility] Address [address] [place] [address] Phone Care Team Providers Care Element Winding Machine Tender Name Role Phone Nessa Hillman NP Primary Care Provider [phone] Lupillo Sinclair MD Unavailable [phone] Encounter Details Date Type Department Care Team (Late st Contact Info) Description 02/04/2025 Procedure Pass [facility] Imaging - RF/IR [address] [facility] [place] [address] Social History Tobacco Use Types Packs/Day Years [...] Description 05/26/2025 11:10 AM EDT Office Visit [facility] [address] [place] [address] Lin Tellez MD [address] [facility] [address] [place] [address] [email or web address] Paloma Motley MD [address] [facility] [id number] [place] [address] [email or web address] documented as of this encounter Visit Diagnoses Not on filedocumented in this encounter Additional Health Concerns Infection Onset 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 It is not the complete legal health record.[facility]
== END 2025-04-22 09:32 | disposition home or self-care (01) ==
LOC: HO.HVNA 09:31
PROVIDERS: Visit Provider Internal Medicine
DX: E83.42 Hypomagnesemia (principal); Z87.19 Personal history of other diseases of the digestive system; Z13.6 Encounter for screening for cardiovascular disorders
CPT/HCPCS: 36415; 80053; 80061; 83540; 83735; 85025

== ENCOUNTER 2025-04-25 09:20 | Outpatient (AMB) | payer MEDICARE, SELFPAY ==
--- NOTE | 2025-04-25 09:15 | MHC.PC.OV ---
Intake Visit Reasons: TCM Intake Note: 65-year-old lady here today for a TCM visit, recently discharged from [facility] 04/12/2025. Allergies clams Allergy (Severe, Verified 04/27/25 10:39) Stomach Upset clavulanic acid (Augmentin) Allergy (Unknown, Verified 04/27/25 10:39) GI, Difficulty breathing codeine (CODEINE) Allergy (Unknown, Verified 04/27/25 10:39) SENSITIVITY erythromycin base (Erythromycin Base) Allergy (Unknown, Verified 04/27/25 10:39) GI, DIFF BREATHING Sulfa (Sulfonamide Antibiotics) Allergy (Unknown, Verified 04/27/25 10:39) RASH morphine (MORPHINE) Adverse Reaction (Severe, Verified 04/27/25 10:39) Difficulty Breathing aspirin (Aspirin) Adverse Reaction (Mild, Verified 04/27/25 10:39) STOMACH UPSET melatonin Adverse Reaction (Verified 04/27/25 10:39) Vomiting Medication List - Last Reconciled 04/25/25 by Joi Rebollar MD amiodarone 200 mg PO DAILY apixaban (Eliquis) 5 mg PO BID atorvastatin 20 mg PO BEDTIME carisoprodol 350 mg PO BEDTIME PRN carvedilol (Coreg) 6.25 mg PO BID carvedilol 6.25 mg PO Q12H colchicine 0.6 mg PO DAILY cyanocobalamin (vitamin B-12) (Vitamin B-12) 1,000 mcg PO DAILY esomeprazole magnesium (Nexium) 20 mg PO DAILY@0630 magnesium oxide 400 mg PO BID mirtazapine 15 mg PO BEDTIME multivit with min-folic acid 200 mcg (Multivitamin Gummies) 1 tab PO DAILY ondansetron HCl 4 mg PO DAILY PRN 5 days potassium chloride ER 20 mEq PO BID potassium chloride ER 10 mEq PO BID Tobacco use date assessed: 04/25/25 Fall risk assessment: No Falls in past year Last assessed Fall Risk: 04/25/25 Dental Screening Dental Screen Date: 04/25/25 Did you have a dental visit in the last 12 months?: No Did you have a dental problem in the last 6 months where you did not have access to dental care?: No Was dental information given to patient?: Patient has dentist HPI TCM HPI Details - 65-year-old female with past medical history significant for hypertension, hyperlipidemia, coronary artery disease, paroxysmal atrial fibrillation currently on Eliquis, congestive heart failure, , hx pancreatitis, [place] [facility] with resultant ileostomy bag followed by admission to the ICU at [facility] from 01/20-01/25 for pulmonary edema/pericardial effusion/anemia/new onset a flutter/intra-abdominal abscess/Finegoldia bacteremia after which patient was transferred back to [facility] , where she had abscesses drained; finished a course of antibiotics and discharged home on 02/17/25. Presented back to the ER on 02/18/25 overnight with a chief complaint of abdominal pain with question of cholecystitis ruled out, discharged home 02/27. Re-admitted 02/28 for abdominal pain and nausea along with vaginal spotting and BRBPR. She underwent sigmoidoscopy on 03/04/25; this showed rectovaginal fistula; likely she had bleeding from the fibroid diverting in to the short remaining rectal stump. She then underwent uterine artery embolization on 03/10/25. Re-admitted 03/30 to ICU for septic shock. During this recent admission, her Urine cultures grew VRE and Klebsiella. Was maintained on IV Zosyn and Zyvox. Seen in consultation by General surgery who recommended placement of a cholecystostomy tube which was placed 04/02. She had minimal drainage from tube , to be removed as outpatient. Chronic issues with hypokalemia/hypomagnesemia necessitated need for placement of a central port. She completed a course of IV antibiotics while hospitalized; seen by ID who recommended no further antibiotics. She is now home , with central port in place for medication administration, to be flushed every 6 weeks, has VNA already in place. She has history of chronic vomiting syndrome, currently taking ondansetron as needed. Has been feeling better, afebrile She has osteoarthritis of knees, uses a walker to help with ambulation. She takes mirtazapine for insomnia and occasional carisoprodol use for generalized muscle spasm. Continued on amiodarone and apixaban for atrial flutter paroxysmal atrial fibrillation, takes omeprazole for GERD. Hypokalemia was corrected but still with recurrent hypomagnesemia due to chronic pharmacy and output from her cholecystectomy tube [facility] TCM Information Date of Discharge 04/12/25 Discharged From [facility] Interactive Contact Date (Reference documentation from this date) 04/14/25 [facility] Medical History CAD (coronary artery disease) Atrial flutter History of sigmoidoscopy Multinodular thyroid Chronic vomiting Hypocalcemia Iron deficiency anemia Hyponatremia Hypomagnesemia Acute cholecystitis History of acute cholecystitis History of pancreatitis Pancreatitis Insomnia Bilateral knee pain Polyarthralgia MARKIE (acute kidney injury) Back pain Arthritis History of transfusion of packed red blood cells Anemia Cardiomyopathy MARKIE (acute kidney injury) MARKIE (acute kidney injury) Anxiety Small bowel obstruction Myocardial infarction NSTEMI (non-ST elevated myocardial infarction) NSVT (nonsustained ventricular tachycardia) PVC (premature ventricular contraction) Hypertension Perforated diverticulum Irritable bowel syndrome with constipation Barretts esophagus GERD (gastroesophageal reflux disease) Surgical History Ileostomy in place History of insertion of tunneled central venous catheter (CVC) with port H/O insertion of cholecystostomy tube Status post embolization of uterine artery S/P colon resection PIC line (peripherally inserted central catheter) removal History of low anterior resection of rectum Status post cardiac catheterization H/O dilation and curettage History of exploratory laparotomy (05/11/23) S/P colostomy Colovesical fistula History of esophagogastroduodenoscopy (EGD) Hx of colonoscopy Family History Father Colon cancer Congestive heart failure Paternal Aunt Colon cancer Mother Congestive heart failure Afib Social History Household Members: None Housing: House Are you a primary animal care assistant to a significant other at home: No Do you presently have visiting nurse or other home services: Yes Unable to assess alcohol history related to: Unknown Alcohol intake: never Comment: Pt refusing bed alarm Patient Tobacco Use Status: Former Tobacco user Tobacco use type: Cigarette Cigarette Packs Per Day: 0.5 Cigarettes Per Day: 10.0 Years Smoked: 25 e-Cigarette/Vaping Use: Former Use Second Hand Smoke Exposure: No Substance Use Type: Marijuana Advance Directives Date on File: 12/29/23 service: No Cognitive needs: No Hearing needs: No Vision needs: Yes Questionnaire Thrive Questionnaire Date Thrive assessed: 03/31/25 ANSHU-7 AMB Questionnaire ANSHU-7 Date ANSHU - 7 assessed: 12/19/24 Source: Developed by Drs. Rashard Wang, Cris Amato, Tone Sheth and colleagues, with an educational lorenzo from [employer]. Review of Systems Const Denies fever(s), Denies frequent falls and Denies headache(s) ENT Reports no additional complaints and Denies headache(s) Card Denies chest pain, Denies palpitations and Denies dyspnea on exertion Resp Denies cough and Denies dyspnea on exertion GI Denies abdominal pain, Denies hematochezia and Reports heartburn Denies dysuria and Denies urinary urgency Musc Reports as per HPI, Denies numbness, Reports stiffness and Denies tingling Skin/Breast Denies new lesions Neuro Denies frequent falls, Denies headache(s), Denies numbness and Denies tingling Psych Reports no additional complaints Endo Denies palpitations Andreas/Lymph Denies no additional complaints Aller/Immun Reports no additional complaints Physical exam (Primary Care) Tobacco/Smoking Status: Tobacco use Status Tobacco use date assessed 04/25/25 04/25/25 09:20 Patient Tobacco Use Status Former Tobacco user 04/25/25 09:20 Tobacco use type Cigarette 04/25/25 09:20 e-Cigarette/Vaping Use Former Use 04/25/25 09:20 Thrive Assessment: Date of Thrive Assessment Date Thrive assessed 03/31/25 04/25/25 09:20 Telehealth Telehealth Telehealth Platform: [facility] Location of provider rendering services: practice address Location of patient: address on file Patient Identification confirmed using: Name, : Yes Telehealth method: video Patient verbally consented to treatment: Yes Patient verbally consented to billing insurance company: Yes Patient informed of any privacy concerns related to visit: Yes Minutes spent on Phone/Video with Pt.: 25 Coding Level of Care Code TCM High MDM <= 14 days Complex EM visit Add On G2211 Diagnoses Chronic vomiting R11.10 Multinodular thyroid E04.2 H/O insertion of cholecystostomy tube Z98.890 Family history of thyroid disease Z83.49 Abnormal kidney function N28.9 Hypotension due to hypovolemia E86.1 Hypotension type: hypotension due to hypovolemia Atrial flutter I48.[address] Z93.2 Iron deficiency anemia D50.9 Polyarthralgia M25.50 Insomnia, unspecified type G47.00 Insomnia type: unspecified Hx: UTI (urinary tract infection) Z87.440 Assessment & Plan Assessment & Plan (1) Chronic vomiting: Code(s): R11.10 - Vomiting, unspecified Category: Medical (2) Multinodular thyroid: Code(s): E04.2 - Nontoxic multinodular goiter Category: Medical (3) H/O insertion of cholecystostomy tube: Code(s): Z98.890 - Other specified postprocedural states Category: Surgical (4) Family history of thyroid disease: Code(s): Z83.49 - Family history of other endocrine, nutritional and metabolic diseases (5) Abnormal kidney function: Code(s): N28.9 - Disorder of kidney and ureter, unspecified Category: Medical (6) Hypotension: Code(s): I95.9 - Hypotension, unspecified Category: Medical Qualifiers: Hypotension type: hypotension due to hypovolemia Qualified Code(s): E86.1 - Hypovolemia (7) Atrial flutter: Code(s): I48.92 - Unspecified atrial flutter Category: Medical (8) Ileostomy in place: Code(s): Z93.2 - Ileostomy status Category: Surgical (9) Iron deficiency anemia: Code(s): D50.9 - Iron deficiency anemia, unspecified Category: Medical (10) Polyarthralgia: Code(s): M25.50 - Pain in unspecified joint Category: Medical (11) Insomnia: Code(s): G47.00 - Insomnia, unspecified Category: Medical Qualifiers: Insomnia type: unspecified Qualified Code(s): G47.00 - Insomnia, unspecified (12) Hx: UTI (urinary tract infection): Code(s): Z87.440 - Personal history of urinary (tract) infections Plan Management of chronic vomiting syndrome includes ondansetron as needed, stressed importance of staying well hydrated. Iron and magnesium supplements are prescribed to address deficiencies, with monitoring for anemia and electrolyte imbalance. Continues to use a walker for getting around. The central port requires regular flushing, and blood pressure should be monitored due to hypotension, has VNA in place. Adjustments to medications may be needed based on blood pressure readings. Insomnia is managed with mirtazapine, and caution is advised with carisoprodol use. The multinodular thyroid requires further evaluation, including thyroid function tests and possibly an ultrasound, with regular endocrinology follow-up recommended. Patient was informed and verbally consented to the use of an ambient scribe for clinic note documentation during this visit. Orders: Orders Comprehensive Met. Panel 5 Days E83.51 - Hypocalcemia, N28.9 - Disorder of kidney and ureter, unspecified, R19.8 - Other specified symptoms and signs involving the digestive system and abdomen, Z93.2 - Ileostomy status, R11.10 - Vomiting, unspecified, E04.2 - Nontoxic multinodular goiter, Z83.49 - Family history of other endocrine, nutritional and metabolic diseases, Z98.890 - Other specified postprocedural states Vitamin B12 and Folate 5 Days E83.51 - Hypocalcemia, N28.9 - Disorder of kidney and ureter, unspecified, R19.8 - Other specified symptoms and signs involving the digestive system and abdomen, Z93.2 - Ileostomy status, R11.10 - Vomiting, unspecified, E04.2 - Nontoxic multinodular goiter, Z83.49 - Family history of other endocrine, nutritional and metabolic diseases, Z98.890 - Other specified postprocedural states Vitamin D 25-OH Total 5 Days E83.51 - Hypocalcemia, N28.9 - Disorder of kidney and ureter, unspecified, R19.8 - Other specified symptoms and signs involving the digestive system and abdomen, Z93.2 - Ileostomy status, R11.10 - Vomiting, unspecified, E04.2 - Nontoxic multinodular goiter, Z83.49 - Family history of other endocrine, nutritional and metabolic diseases, Z98.890 - Other specified postprocedural states Magnesium 5 Days E83.51 - Hypocalcemia, N28.9 - Disorder of kidney and ureter, unspecified, R19.8 - Other specified symptoms and signs involving the digestive system and abdomen, Z93.2 - Ileostomy status, R11.10 - Vomiting, unspecified, E04.2 - Nontoxic multinodular goiter, Z83.49 - Family history of other endocrine, nutritional and metabolic diseases, Z98.890 - Other specified postprocedural states TSH reflex Free T4 5 Days E83.51 - Hypocalcemia, N28.9 - Disorder of kidney and ureter, unspecified, R19.8 - Other specified symptoms and signs involving the digestive system and abdomen, Z93.2 - Ileostomy status, R11.10 - Vomiting, unspecified, E04.2 - Nontoxic multinodular goiter, Z83.49 - Family history of other endocrine, nutritional and metabolic diseases, Z98.890 - Other specified postprocedural states thyroid 04/25/25 E04.2 - Nontoxic multinodular goiter Medications: New iron bis glycinat-vit C-FA-B12 28 mg iron-60mg -400 mcg-8 mcg (Gentle Iron) 1 cap PO DAILY 90 caps 1RF D50.9 - Iron deficiency anemia, unspecified calcium carb, citrate-vit D3 600 mg-12.5 mcg (500 unit) ER (Citracal-D3 Slow Release) 1 tab PO DAILY 90 tabs 1RF Changed From ondansetron HCl 4 mg PO DAILY 5 days PRN 20 tabs 0RF nausea and vomiting To ondansetron HCl 4 mg PO DAILY PRN 30 tabs 2RF nausea and vomiting
--- OUTSIDE RECORDS SUMMARY | 2025-04-25 09:26 | XMS_ITS | Encounter Summary ---
Author Organization [facility] Address [address] [place] [id number] Phone Care Team Providers Care Beverage Host Name Role Phone Nessa Hillman NP Primary Care Provider [phone] Lupillo Sinclair MD Unavailable [phone] Encounter Details Date Type Department Care Team (Late st Contact Info) Description 02/04/2025 Procedure [place] [facility] [place] [address] [facility] [place] [address] Social History Tobacco Use Types Packs/Day Years [...] AM EDT Office Visit [facility] [address] [place] [address] Lin Tellez MD [address] [facility] [address] [place] [address] [email or web address] Paloma Motley MD [address] [facility] [address] [place] [address] [email or web address] documented as of this encounter Visit Diagnoses Not on filedocumented in this encounter Additional Health Concerns Infection Onset Date Last Indicated Resolved Time VRE 01/25/2025 01/29/2025 CDiff-Risk 03/21/2025 03/21/2025 03/21/2025 2:33 PM EDT documented as of this encounter Care Teams Beverage Host Relationship Specialty Start Date End Date Nessa Hillman NP [address] [place] [address] PCP - General Nurse Practitioner 06/03/24 Lupillo Sinclair MD [address] [place] [id number] Cardiology 12/24/24 documented as of this encounter Additional Source Comments The information contained in this document represents components of the legal health record. It is not the complete legal health record.[facility]
== END 2025-04-25 15:19 | disposition home or self-care (01) ==
LOC: HO.HMCC 09:20
PROVIDERS: PCP Internal Medicine; Visit Provider Internal Medicine
DX: R11.10 Vomiting, unspecified (principal); I48.92 Unspecified atrial flutter; Z93.2 Ileostomy status; E04.2 Nontoxic multinodular goiter; Z98.890 Other specified postprocedural states; Z83.49 Family history of other endocrine, nutritional and metabolic diseases; N28.9 Disorder of kidney and ureter, unspecified; E86.1 Hypovolemia; D50.9 Iron deficiency anemia, unspecified; M25.50 Pain in unspecified joint; G47.00 Insomnia, unspecified; Z87.440 Personal history of urinary (tract) infections

== ENCOUNTER → 2025-04-25 09:20 | Outpatient (BNVA) | payer MEDICARE, SELFPAY | PROVIDERS: PCP Internal Medicine; Visit Provider Internal Medicine | DX: I10 Essential (primary) hypertension (principal); E78.5 Hyperlipidemia, unspecified; I25.10 Atherosclerotic heart disease of native coronary artery without angina pectoris; I48.0 Paroxysmal atrial fibrillation; I50.9 Heart failure, unspecified; M17.0 Bilateral primary osteoarthritis of knee; K21.9 Gastro-esophageal reflux disease without esophagitis; R10.10 Upper abdominal pain, unspecified; E04.2 Nontoxic multinodular goiter; N28.9 Disorder of kidney and ureter, unspecified; E86.1 Hypovolemia; I48.92 Unspecified atrial flutter; D50.9 Iron deficiency anemia, unspecified; M25.50 Pain in unspecified joint; G47.00 Insomnia, unspecified; Z93.2 Ileostomy status; Z83.49 Family history of other endocrine, nutritional and metabolic diseases; Z87.440 Personal history of urinary (tract) infections; Z79.01 Long term (current) use of anticoagulants; Z98.890 Other specified postprocedural states | CPT/HCPCS: 99495 ==

== ENCOUNTER 2025-04-27 10:30 | Inpatient (IN) | payer MEDICARE, SELFPAY ==
[2025-04-27] VITALS (28 sets, daily range): BP systolic 77–140; BP diastolic 41–102; PULSE 60–112; RESP 9–18; TEMP 36.3–37.5; O2SAT 97–100; BMI 21.4
--- NOTE | ~2025-04-27 | CT_ITS ---
EXAMINATION: CT ABDOMEN AND PELVIS WITH CONTRAST CLINICAL INFORMATION: Follow-up abscess, intra-abdominal post percutaneous drain placement COMPARISON: April 27, 2025 TECHNIQUE: Multidetector volumetric images were obtained from the superior aspect of the liver through the pubic symphysis following administration 85 mL of Omnipaque 350 intravenous contrast. Sagittal and coronal reformatted images were obtained on the technologist's workstation. Oral contrast: No This CT examination was performed using dose optimization techniques as appropriate, variously including the following: *Automated exposure control *Adjustment of mA and/or kV according to patient size (this includes techniques or standardized protocols for targeted exams where dose is matched to indication/reason for exam; i.e. extremities or head) *Use of iterative reconstruction technique FINDINGS: LUNG BASES: Small medium sized layering pleural effusions are bilateral, large left. There is compressive atelectasis, new since the prior. LIVER, GALLBLADDER, AND BILIARY TREE: Again noted are diffuse fatty changes throughout the liver with coarse reticular enhancement in the right hepatic lobe Percutaneous pigtail catheter is present within the gallbladder that is decompressed. There is pericholecystic fluid without a peripheral enhancing wall. There is no biliary duct dilation. PANCREAS: There is minimal peripancreatic fat stranding. SPLEEN: Unremarkable. ADRENAL GLANDS: Unremarkable KIDNEYS AND URETERS: Low attenuating lesion in the mid left kidney is consistent with a benign simple renal cysts. There is no hydronephrosis or hydroureter. BLADDER: Unremarkable. GASTROINTESTINAL TRACT: Changes from colectomy are noted. There is a rectal pouch that is fluid-filled. There is a right lower quadrant ileostomy with parastomal hernia containing multiple loops of bowel There is a loculated fluid collection with peripheral enhancement in the deep subcutaneous soft tissues in the cephalad area of the peristomal hernia that measures 4.5 x 0.9 x 3.3 cm (CC by AP by transverse). There is a tract extending to the skin surface laterally suggesting prior for exchange drainage. The collection abuts the superior margin of the passes inferior to the collection. There is no sign of obstruction. There appears to be an open wound in the anterior midline of the lower abdomen appears new since the prior examination, likely a surgical wound left a healed by secondary intention. On the prior, there is a loculated fluid collection in this region but is now evacuated. ABDOMINAL WALL: See gastrointestinal tract LYMPH NODES: Normal. VASCULAR: Multifocal vascular calcifications are mild. PELVIC VISCERA: Uterus and adnexa are unremarkable. OSSEOUS STRUCTURES: There is mild convex right curvature of the thoracic spine. Moderate degenerative changes are present in the lower thoracic spine. There is a chronic compression fracture is mild, involving superior endplate of T11. CT/CT abdomen pelvis w IV con IMPRESSION: Persistent loculated fluid collection with peripheral enhancement consistent with small abscess but could represent hematoma superior to ileostomy in the deep subcutaneous soft tissues appear similar in size the prior examination. It abuts a loop of small bowel along its inferior margin. Post colectomy with rectal pouch. There is new surgical wound that appears to be left to heal by secondary intention with evacuation of an irregular fluid collection that was in the midline of the lower anterior abdominal wall.. Interval development of small to moderate bilateral layering pleural effusions with compressive atelectasis. Mild peripancreatic fat stranding. Correlate for signs symptoms of pancreatitis. Percutaneous cholecystotomy tube remains in place. No evidence of abscess formation in this region. Hepatic steatosis possible underlying cirrhosis. Fleischner guidelines were followed. Electronically signed by: Reese Rosado MD 05/01/2025 05:21 PM EDT
--- NOTE | ~2025-04-27 | MR_ITS ---
EXAMINATION: MR BRAIN WITHOUT CONTRAST CLINICAL INFORMATION: aphasia COMPARISON: CT of the head and CT angiogram of head and neck on May 06, 2025 TECHNIQUE: MRI of the brain was obtained using routine sequences without contrast. FINDINGS: Brain parenchyma: No evidence of acute infarct, mass lesion or parenchymal hemorrhage. Minimal T2/FLAIR hyperintensity in the white matter of bilateral cerebral hemispheres, likely related to small vessel ischemic changes. Ventricles/extra-axial spaces: Diffuse prominence of the ventricles and extra-axial CSF spaces represent some degree of brain volume loss. No hydrocephalus. No extra-axial fluid collection. Extracranial structures: Bilateral orbits are unremarkable. Minimal right mastoid effusion. Paranasal sinuses and left mastoid air cells are essentially clear. Arterial flow voids of the skull base are preserved. MR/MR head/brain wo con IMPRESSION: 1. No evidence of acute infarct or parenchymal hemorrhage. 2. Minimal right mastoid effusion. Electronically signed by: Paty Lopez MD 05/07/2025 07:58 AM EDT
--- NOTE | ~2025-04-27 | CT_ITS ---
CLINICAL HISTORY: speech difficulty CTA HEAD WITH CONTRAST AND 3D POST PROCESSING CTA NECK WITH CONTRAST AND 3D POST PROCESSING COMPARISON: Noncontrast CT brain 05/05/2025. FINDINGS: CTA NECK: Sagittal and coronal MIP 3D reconstruction images were performed. Exam is significantly limited due to motion/streak artifact.There is no definite high-grade stenosis, occlusion, dissection, aneurysm, or vascular malformation. There is no active bleeding. Calcific plaque is noted in the proximal left internal carotid artery, without significant stenosis.Common carotid arteries, internal carotid arteries, external carotid arteries, and vertebral arteries are otherwise unremarkable. Incompletely visualized are bilateral pleural effusions, left greater than right. Left pleural effusion is thought to be small to moderate in size. Right pleural effusion is thought to be small in size. Approximately 5-6 mm right thyroid lobe nodule is incidentally noted on axial image 657 of series 6. Mild rightward tilt of the cervical spine is noted. Multilevel endplate degenerative changes and facet arthrosis are noted in the cervical spine. There is mild anterolisthesis of C3 on C4, and C7 on T1. CTA HEAD: Sagittal and coronal MIP 3D reconstruction images were performed.There is no high-grade stenosis, occlusion, dissection, aneurysm, or vascular malformation. There is no active bleeding. Calcific plaque is noted in the carotid siphons.Terminal internal carotid arteries, middle cerebral arteries, anterior cerebral arteries, basilar artery, and posterior cerebral arteries are otherwise unremarkable. No evidence of dural venous sinus thrombosis. IMPRESSION: 1. CTA neck and CTA head demonstrate no evidence of a high-grade stenosis, occlusion, dissection, aneurysm, or vascular malformation. 2. Incompletely visualized are bilateral pleural effusions. Left pleural effusion is thought to be small to moderate in size. Right pleural effusion is thought to be small in size. 3. Additional findings are detailed above. This document has been electronically signed by: David Márquez M.D. on 05/06/2025 01:31:40
--- NOTE | ~2025-04-27 | CT_ITS ---
CLINICAL HISTORY: speech difficulty, no focal symptoms CT BRAIN WITHOUT CONTRAST COMPARISON: None provided. FINDINGS: There is mild parenchymal atrophy. There is no evidence of an acute infarct or intraparenchymal hemorrhage. Patchy areas of low attenuation are noted in the subcortical and periventricular regions of the supratentorial brain which are nonspecific but most likely represent chronic small vessel ischemic disease. There is no mass effect, midline shift, or extra-axial blood. The ventricles are normal in size without evidence of hydrocephalus. The bone windows are unremarkable. Air-fluid level is noted in the left sphenoid sinus. IMPRESSION: 1. No acute disease in the brain. 2. Left sphenoid sinus disease is noted. This document has been electronically signed by: David Márquez M.D. on 05/06/2025 00:42:51
--- NOTE | ~2025-04-27 | CT_ITS ---
CLINICAL HISTORY: Bleeding around ileostomy site CT abdomen and pelvis without contrast Comparison: 03/30/25 Findings: No consolidation at the lung bases. Interval placement of a percutaneous cholecystostomy tube. Unremarkable bladder. Hepatic steatosis with nodular contour of the liver capsule which may indicate cirrhosis. Bilateral extrarenal pelvises. No hydronephrosis. Question punctate nephrolithiasis on the right. Punctate renal parenchymal calcifications may also be considered. Bilateral subcentimeter hyperattenuating renal lesions measuring up to 9 mm on the right, indeterminate. The other solid organs are unremarkable. Status post colectomy. Right lower quadrant ileostomy with a parastomal hernia containing fat and nonobstructed small bowel. Superior to the ostomy there is a collection measuring higher than simple fluid measuring 3.6 x 1.0 x 4.9 cm, previously measuring 4.8 x 3.4 x 5.9 cm. There is a tract which extends to the skin, likely secondary to recent drainage. Increased attenuation material in the bowel, ingested. No significant bowel dilation or definitive wall thickening. No aneurysm. Moderate calcified atherosclerotic disease. No lymphadenopathy. No ascites. No acute osseous abnormality. Impression: Decrease in size of the complex fluid collection superior to ileostomy, currently measuring up to 4.9 cm and previously measuring up to 5.9 cm. There is a tract which extends to the skin, likely secondary to recent percutaneous drain. This could be resolving hematoma. Abscess or seroma may also be considered. This document has been electronically signed by: Mandie Trivedi MD on 04/27/2025 14:00:14
--- NOTE | 2025-04-27 10:38 | ED.GENADULT ---
HPI - General Adult General Chief complaint: General Medical Stated complaint: abd wound, bleeding controlled per EMS Time Seen by Provider: 04/27/25 10:35 Source: patient and EMS Mode of arrival: EMS Limitations: no limitations History of Present Illness ED Provider: PATIENCE Guerrero HPI narrative: 65year old female PMH of HTN, HLD, CAD, CHF, aflutter on eliquis, IBS, pancreatitis, s/p subtotal [place] [facility] [place] - s/p procedure had return visit to [facility] [place] for pulm edema, pericarditis/effusion, anemia, intraabdominal abscess/ finegoldia bacteremia s/p IV abx therapy, NSTEMI (status post cardiac catheterization without stent placement or CABG), complicated diverticulitis requiring colostomy, status post 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 Patient does not think it is her actual ileostomy bleeding rather possibly a abscess forming around it. She states she woke up and the area overlying ileostomy site was soaked with blood. She reports she has been packing it. She has had a very hard time stopping the bleeding. She does report that she is on Eliquis. Related Data Home Medications ?Medication ?Instructions ?Recorded ?Confirmed mirtazapine 15 mg tablet 15 mg PO BEDTIME 11/30/23 04/25/25 multivitamin with minerals-folic 1 tab PO DAILY 01/07/24 04/25/25 acid 200 mcg chewable tablet (Multivitamin Gummies) amiodarone 200 mg tablet 200 mg PO DAILY 02/19/25 04/25/25 apixaban 5 mg tablet (Eliquis) 5 mg PO BID 02/19/25 04/25/25 colchicine 0.6 mg tablet 0.6 mg PO DAILY 02/19/25 04/25/25 esomeprazole magnesium 20 mg 20 mg PO DAILY@0630 02/19/25 04/25/25 capsule,delayed release (Nexium) cyanocobalamin (vitamin B-12) 1,000 mcg PO DAILY 03/31/25 04/25/25 1,000 mcg tablet (Vitamin B-12) carisoprodol 350 mg tablet 350 mg PO BEDTIME PRN Difficulty 04/25/25 04/25/25 sleeping carvedilol 6.25 mg tablet 6.25 mg PO Q12H 04/25/25 04/25/25 carvedilol 6.25 mg tablet (Coreg) 6.25 mg PO BID 04/25/25 magnesium oxide 400 mg PO BID 04/25/25 04/25/25 potassium chloride 10 mEq 10 meq PO BID 04/25/25 04/25/25 capsule,extended release potassium chloride 20 mEq 20 meq PO BID 04/25/25 04/25/25 tablet,extended release Previous Rx's ?Medication ?Instructions ?Recorded atorvastatin 20 mg tablet 20 mg PO BEDTIME #90 tabs 11/04/24 calcium ER 600 mg (as carb,cit)-D3 1 tab PO DAILY #90 tabs 04/25/25 12.5 mcg (500 unit) tablet, ext.rel (Citracal-D3 Slow Release) iron bis glycinate karyna 28 mg 1 cap PO DAILY #90 caps 04/25/25 iron-vit C 60 mg-FA 400 mcg-B12 8mcg cap (Gentle Iron) ondansetron HCl 4 mg tablet 4 mg PO DAILY PRN nausea and 04/25/25 vomiting #30 tabs Allergies Allergy/AdvReac Type Severity Reaction Status Date / Time clams Allergy Severe Stomach Verified 04/27/25 10:39 Upset clavulanic acid (Augmentin) Allergy Unknown GI, Verified 04/27/25 10:39 Difficulty breathing codeine (CODEINE) Allergy Unknown SENSITIVIT Verified 04/27/25 10:39 Y erythromycin base Allergy Unknown GI, DIFF Verified 04/27/25 10:39 (Erythromycin Base) BREATHING Sulfa (Sulfonamide Allergy Unknown RASH Verified 04/27/25 10:39 Antibiotics) morphine (MORPHINE) AdvReac Severe Difficulty Verified 04/27/25 10:39 Breathing aspirin (Aspirin) AdvReac Mild STOMACH Verified 04/27/25 10:39 UPSET melatonin AdvReac Vomiting Verified 04/27/25 10:39 Review of Systems Review of Systems: Yes all other systems are reviewed and are negative PMFSH Past Medical History Attestation statement: The following information was validated with the patient. Source: old records reviewed and nursing notes reviewed Medical History History of sigmoidoscopy Multinodular thyroid Chronic vomiting Hypocalcemia Iron deficiency anemia Hyponatremia Hypomagnesemia Acute cholecystitis Atrial flutter CAD (coronary artery disease) History of acute cholecystitis History of pancreatitis Pancreatitis Insomnia Bilateral knee pain Polyarthralgia MARKIE (acute kidney injury) Back pain Arthritis History of transfusion of packed red blood cells Anemia Cardiomyopathy MARKIE (acute kidney injury) MARKIE (acute kidney injury) Anxiety Small bowel obstruction Myocardial infarction NSTEMI (non-ST elevated myocardial infarction) NSVT (nonsustained ventricular tachycardia) PVC (premature ventricular contraction) Hypertension Perforated diverticulum Irritable bowel syndrome with constipation Barretts esophagus GERD (gastroesophageal reflux disease) Surgical History History of insertion of tunneled central venous catheter (CVC) with port H/O insertion of cholecystostomy tube Status post embolization of uterine artery S/P colon resection PIC line (peripherally inserted central catheter) removal History of low anterior resection of rectum Status post cardiac catheterization Ileostomy in place H/O dilation and curettage History of exploratory laparotomy (05/11/23) S/P colostomy Colovesical fistula History of esophagogastroduodenoscopy (EGD) Hx of colonoscopy Family History Family History Father Colon cancer Congestive heart failure Paternal Aunt Colon cancer Mother Congestive heart failure Afib Social History Social History Household Members: None Housing: House Are you a primary rn progressive care to a significant other at home: No Do you presently have visiting nurse or other home services: Yes Unable to assess alcohol history related to: Unknown Alcohol intake: never Comment: pt declined alarms; intermittently assistance Patient Tobacco Use Status: Former Tobacco user Tobacco use type: Cigarette Cigarette Packs Per Day: 0.5 Cigarettes Per Day: 10.0 Years Smoked: 25 e-Cigarette/Vaping Use: Former Use Second Hand Smoke Exposure: No Substance Use Type: Marijuana Advance Directives: Yes Advance Directives on File: Yes Advance Directives Date on File: 12/29/23 service: No Cognitive needs: No Hearing needs: No Vision needs: Yes Physical Exam ED Exam Exam: Appearance: Alert.? Oriented X3.? No acute distress.? Head: Normocephalic, atraumatic, no step-offs or deformities Eyes: Pupils equal, round and reactive to light.? ENT: Pharynx normal.? Neck: Normal inspection.? Neck supple.? CVS: Normal heart rate and rhythm.? Pulses normal.? Respiratory: No respiratory distress.? Breath sounds normal.? Abdomen: Soft and nontender.?+ bleeding coming just lateral to ileostomy site. It appears to be actively bleeding and it also has purulence. Skin: Skin warm and dry.? Normal skin color.? Normal skin turgor.? Extremities: No lower extremity edema.? No calf ttp. 5/5 strength to bilateral upper and lower extremities Back: No midline tenderness, no C-spine tenderness, full range of motion, no CVA tenderness bilaterally Neuro: Oriented X 3.? No motor deficit.? No sensory deficit. CN 2-12 intact Vital Signs: Vital Signs - 24 hr 04/27/25 10:36 04/27/25 11:57 04/27/25 13:19 Temperature 99.5 F Pulse Rate 112 H 97 Respiratory Rate 16 Blood Pressure 120/69 105/53 L 96/53 L Pulse Oximetry 97 04/27/25 14:00 04/27/25 14:00 Temperature Pulse Rate 81 79 Respiratory Rate Blood Pressure 91/48 L 92/53 L Pulse Oximetry BMI result Body Mass Index 21.4 vss Course Reevaluation(s) Reevaluation #1: Chemistry pending blood cultures lactic pending. Patient's CBC with significant leukocytosis 29.4 with left shift. I did discuss this case with Dr. Oneil surgery who recommends transfer to [facility] as patient is being followed by them for recurrent fistula was an abscess. Time: 11:57 Reevaluation #2: Patient is saturating through her abdominal dressing. Will give her Kcentra to reverse Eliquis Time: 12:14 Reevaluation #3: I did speak to [facility] for transfer however patient is adamantly refusing to be transferred. Dr. Oneil aware of this he would like patient admitted to the hospitalist team with surgical consult Time: 12:17 Additional Reevaluation(s): Dr. Alexandra note I saw the patient myself as well I examined the patient she is critically ill she needs IV antibiotic and ICU given the blood pressure 1326 Patient's site is bleeding more she is seeping through 1 dressing approximately every [address] Higgins at the bedside. Central be given to reverse Eliquis. Type and screen as well as repeat CBC obtained 1431 H&H down trending 9.7-8.1, I already had ordered a unit of packed red blood cells which patient will receive shortly. Plan is ICU admission Medications Administered Generic Name Dose Route Start Last Admin Trade Name Freq PRN Reason Stop Dose Admin Sodium Chloride 1,000 mls @ 999 mls/hr 04/27/25 13:45 04/27/25 13:50 Ns IV 04/27/25 14:45 999 mls/hr .Q1H1M ARISTIDES Administration Discontinued Medications Generic Name Dose Route Start Last Admin Trade Name Freq PRN Reason Stop Dose Admin Hydromorphone HCl 0.5 mg 04/27/25 13:08 04/27/25 13:19 Hydromorphone Hcl 0.5 Mg/0.5 Ml Syringe IVPUSH 04/27/25 13:09 0.5 mg ONCE ONE Administration Protocol Piperacillin Sod/Tazobactam 50 mls @ 100 mls/hr 04/27/25 10:53 04/27/25 12:30 Sod 3.375 gm/ Sodium Chloride IV 04/27/25 11:22 Infused ONCE ONE Infusion Sodium Chloride 1,590 mls @ 1,590 mls/hr 04/27/25 10:54 04/27/25 13:59 Ns 30 ml/kg infuse over 1 hr (1590 ml) 04/27/25 11:53 Infused IV Infusion .Q1H STA Vancomycin HCl 1,250 mg/ 250 mls @ 166.667 mls/hr 04/27/25 12:03 04/27/25 12:50 Sodium Chloride IV 04/27/25 13:32 166.67 mls/hr ONCE ONE Administration Prothrombin Complex Concent ( 80 mls @ 480 mls/hr 04/27/25 12:13 04/27/25 13:35 Human) 2,000 unit/ IV IV 04/27/25 12:22 480 mls/hr Miscellaneous Supplies .Q10M ONE Administration Magnesium Sulfate 2 gm in 50 mls @ 25 mls/hr 04/27/25 12:27 04/27/25 12:49 Magnesium Sulfate/H2o IV 04/27/25 14:26 25 mls/hr ONCE ONE Administration Midodrine 5 mg 04/27/25 13:02 04/27/25 13:19 Midodrine Hcl 5 Mg Tablet PO 04/27/25 13:03 5 mg ONCE ONE Administration Medical Decision Making Medical Decision Making [facility] Narrative: 1107 65-year-old female presents with bleeding next to ileostomy site. She reports this started in the middle of the night. She is anticoagulated Physical exam there is bleeding coming just lateral to ileostomy site. It appears to be actively bleeding and it also has purulence. I suspect fistula versus abscess. Will rule out metabolic derangements, electrolyte abnormalities and anemia. At this time I suspect infection, antibiotics, fluids ordered. Plan labs, imaging, fluids Differential Diagnosis Differential Diagnoses: The differential diagnosis associated with the presentation includes (I suspect fistula versus abscess. Will rule out metabolic derangements, electrolyte abnormalities and anemia.) Admission/Observation Consideration of admission/observation: Escalation of care including admission/observation considered Lab Data [facility] Lab Attestation statement: I reviewed the patient's lab results. 04/27/25 13:48 04/27/25 11:23 Labs: Lab Results 04/27/25 04/27/25 04/27/25 Range/Units 11:23 13:48 13:53 WBC 29.4 H 23.4 H (4.8-10.8) X10*3/uL RBC 3.32 L 2.76 L (4.20-5.50) X10*6/uL Hgb 9.7 L 8.1 L (12.0-16.0) g/dl Hct 28.5 L 23.9 L (37.0-47.0) % MCV 85.8 86.6 (80.0-98.0) fL MCH 29.2 29.3 (27.0-33.0) pg MCHC 34.0 33.9 (31.0-35.0) g/dl RDW 16.1 H 16.4 H (11.0-16.0) % Plt Count 296 227 (160-400) X10*3/uL MPV 9.5 9.4 (9.4-12.3) fL Immature Gran % (Auto) 1.0 H 0.8 H (0.0-0.4) % Neut % (Auto) 87.6 H 87.0 H (45-73) % Lymph % (Auto) 4.7 L 5.6 L (20-40) % Jones % (Auto) 6.4 6.4 (2-11) % Eos % (Auto) 0.0 0.0 (0-4) % Baso % (Auto) 0.3 0.2 (0-2) % Lymph # (Auto) 1.4 1.3 (1.2-4.9) X10*3/uL Jones # (Auto) 1.9 H 1.5 H (0.1-1.2) X10*3/uL Eos # (Auto) 0.0 0.0 (0.0-0.4) X10*3/uL Baso # (Auto) 0.1 0.0 (0.0-0.2) X10*3/uL Abs Immat Gran (auto) 0.28 H 0.19 H (0.00-0.03) X10*3/uL Absolute Neuts (auto) 25.8 H 20.4 H (2.0-8.3) x10*3/uL Absolute Nucleated RBC 0.000 0.000 (0.0-0.012) X10*3/uL Nucleated RBC % (auto) 0.0 0.0 (0.0-0.2) /100WBC Smear Tech's Comments VERIFIED PT 23.4 H (10.9-12.4) SEC INR 2.0 H (0.9-1.1) Sodium 130 L (135-145) mmol/L Potassium 4.2 (3.3-5.1) mmol/L Chloride 92 L (96-108) mmol/L Carbon Dioxide 24 (22-29) mmol/L Anion Gap 18 (12-20) BUN 29 H (9-16) mg/dL Creatinine 1.86 H (0.5-1.4) mg/dL Estim Creat Clear Calc 23.5 Estimated GFR 27 Random Glucose 104 (60-115) mg/dL Lactic Acid 1.3 (0.5-2.0) mmol/L Calcium 7.9 L (8.4-10.2) mg/dL Magnesium 1.3 L* (1.6-2.6) mg/dL Total Bilirubin 0.6 (0.0-1.0) mg/dL AST 49 H (5-31) U/L ALT 15 (0-31) U/L Alkaline Phosphatase 219 H (39-117) U/L Total Protein 7.3 (6.5-8.0) g/dL Albumin 2.7 L (3.5-5.0) g/dL Blood Type O Positive Crossmatch See Detail Independent Interpretation I performed an independent interpretation of an: CT Scan Radiology Impression Discussion of test interpretation with radiology: I have reviewed the radiologist's reading. Critical Care Time Critical Care Time Critical Care Time: Yes Total Critical Care Time: 60 Attestation: I attest to this time spent taking care of the patient, obtaining history, physical, reviewing labs, imaging, treatment of patients condition +/- specialist/hospitalist consult +/- procedure Discharge Plan Discharge Clinical Impression: Abscess, Abdominal wall fistula, Hypotension, Leukocytosis Patient Disposition: Admitted As Inpatient Print Language: Bur[place]ian
[2025-04-27] MEDS: 0.9 % Sodium Chloride 1,590 ML 1590 ML IV (11:24)
--- NOTE | 2025-04-27 11:28 | PC.NURSE ---
Pt BIBA for drainage/bleeding near ostomy site. Dressing in place and noted to have small amount of sanguineous drainage. Placed on bedside monitor, HR in 100's-110's. Rectal temp 99.8. Pt denies pain, a/o x 4 and answering questions appropriately. Pt requested port be accessed in ED, labs obtained and IVF/abx given per NOV. Per reports port is CT compatible and CT currently pending..
[2025-04-27 11:35] LABS: Hematocrit 28.5 % (37.0-47.0); Hemoglobin 9.7 g/dl (12.0-16.0); Imm Gran Abs Auto 0.28 X10*3/uL (0.00-0.03); Imm Gran Pct Auto 1.0 % (0.0-0.4); Lymphocytes Absolute Auto 1.4 X10*3/uL (1.2-4.9); MANUAL DIFF FLAG SCAN; Mean Corpuscular HGB Conc 34.0 g/dl (31.0-35.0); Mean Corpuscular Hemoglobin 29.2 pg (27.0-33.0); Mean Corpuscular Volume 85.8 fL (80.0-98.0); NRBC Abs Auto 0.000 X10*3/uL (0.0-0.012); NRBC Pct Auto 0.0 /100WBC (0.0-0.2); Platelet Count 296 X10*3/uL (160-400); Red Blood Count 3.32 X10*6/uL (4.20-5.50); SCAN SMEAR FLAG 1; White Blood Count 29.4 X10*3/uL (4.8-10.8)
--- NOTE | 2025-04-27 12:01 | PC.NURSE ---
Provider at bedside, dressing to abdomen removed and new dressing applied.
[2025-04-27 12:24] LABS: Alanine Aminotransferase 15 U/L (0-31); Albumin Level 2.7 g/dL (3.5-5.0); Alkaline Phosphatase 219 U/L (39-117); Anion Gap 18 (12-20); Aspartate Amino Transferase 49 U/L (5-31); Blood Urea Nitrogen 29 mg/dL (9-16); Calcium 7.9 mg/dL (8.4-10.2); Carbon Dioxide 24 mmol/L (22-29); Chloride 92 mmol/L (96-108); Creatinine Clr Calc Pharmacy 23.5; Estimated Glomerular Filt Rate 27; Magnesium 1.3 mg/dL (1.6-2.6); Potassium 4.2 mmol/L (3.3-5.1); Sodium 130 mmol/L (135-145); Total Protein 7.3 g/dL (6.5-8.0)
[2025-04-27] MEDS: Magnesium Sulfate/H2O 2 GM/50 ML PIGGYBACK IV (12:49)
--- NOTE | 2025-04-27 13:14 | PC.NURSE ---
Addendum entered by Laura Ponce RN 04/27/25 13:34: Per JAEL ok to give K centra Original Note: Per PATIENCE Guerrero, hold KCentra until ok to give per surgery
--- NOTE | 2025-04-27 13:34 | PC.NURSE ---
Abdominal dressings changed several times, noted to have increased drainage. PA notified.
[2025-04-27] MEDS: Hum Prothrombin Cplx(PCC)4Fact 2,000 UNIT in Container,Empty 0 ML 480 UNIT IV (13:35)
[2025-04-27 13:58] LABS: Hematocrit 23.9 % (37.0-47.0); Hemoglobin 8.1 g/dl (12.0-16.0); Imm Gran Abs Auto 0.19 X10*3/uL (0.00-0.03); Imm Gran Pct Auto 0.8 % (0.0-0.4); Lymphocytes Absolute Auto 1.3 X10*3/uL (1.2-4.9); MANUAL DIFF FLAG SCAN; Mean Corpuscular HGB Conc 33.9 g/dl (31.0-35.0); Mean Corpuscular Hemoglobin 29.3 pg (27.0-33.0); Mean Corpuscular Volume 86.6 fL (80.0-98.0); NRBC Abs Auto 0.000 X10*3/uL (0.0-0.012); NRBC Pct Auto 0.0 /100WBC (0.0-0.2); Platelet Count 227 X10*3/uL (160-400); Red Blood Count 2.76 X10*6/uL (4.20-5.50); SCAN SMEAR FLAG 1; White Blood Count 23.4 X10*3/uL (4.8-10.8)
[2025-04-27 14:04] LABS: INTERNATIONAL NORM RATIO 2.0 (0.9-1.1); Prothrombin Time 23.4 SEC (10.9-12.4)
--- NOTE | 2025-04-27 14:05 | PM.CCHP ---
History of Present Illness Date of Service: 04/27/25 Chief Complaint: bleeding through fistula 65-year-old lady with complex medical and surgical history with PMH of paroxysmal atrial fibrillation on Eliquis at home, hypertension, CAD, hyperlipidemia, history of perforated colon due to divertiulitis s/p colectomy in the past with hernia repair and revision colostomy converted to ileostomy at [facility] [place] (01/07/2025), intra-abdominal abscess/Finegoldia bacteremia (drained at [facility] [place] in February 2025 and completed abx therapy). She had admission 02/28/2025 to 03/18/2025? for concern of cholecystitis, 03/30/2025 till 04/12/2025 for possible septic shock was discharged home. She presented to the ED today with initial pus leaking from the fistula later converting into blood. Her gauze pads has been soaked with blood and had to be changed multiple times. Onset this morning, progressive, now aggravating or relieving factors, associated with pus. Her colostomy output is normal, not associated with blood. She also became hypotensive, bedside echo showing collapsing IVCs, normal LV systolic function. CT abdomen and pelvis showed slight decrease in the size of abscess above her ileostomy, fistula track and no other new findings Review of Systems Constitutional: Constitutional: Denies body ache(s) and Denies chills Eyes: Eyes: Denies exophthalmos and Denies change in vision ENT: Reports Normal hearing present and Denies bleeding gums Cardiovascular: Cardiovascular: Denies cool extremities, Denies chest pain and Denies chest pain at rest Respiratory: Respiratory: Denies change in phlegm color, Denies chest congestion and Denies cough Gastrointestinal: Gastrointestinal: Reports change in bowel habits, Denies tenesmus and Reports change in stool character Genitourinary: Genitourinary: Denies abnormal menses and Denies abnormal vaginal bleeding Neurologic: Reports Normal hearing present and Denies Neuro-related abnormal movements Psychiatric: Psychiatric: Denies abnormal sleep pattern and Denies anxiety PMFSH Past Medical History Medical History History of sigmoidoscopy Multinodular thyroid Chronic vomiting Hypocalcemia Iron deficiency anemia Hyponatremia Hypomagnesemia Acute cholecystitis Atrial flutter CAD (coronary artery disease) History of acute cholecystitis History of pancreatitis Pancreatitis Insomnia Bilateral knee pain Polyarthralgia MARKIE (acute kidney injury) Back pain Arthritis History of transfusion of packed red blood cells Anemia Cardiomyopathy MARKIE (acute kidney injury) MARKIE (acute kidney injury) Anxiety Small bowel obstruction Myocardial infarction NSTEMI (non-ST elevated myocardial infarction) NSVT (nonsustained ventricular tachycardia) PVC (premature ventricular contraction) Hypertension Perforated diverticulum Irritable bowel syndrome with constipation Barretts esophagus GERD (gastroesophageal reflux disease) Family History Family History Father Colon cancer Congestive heart failure Paternal Aunt Colon cancer Mother Congestive heart failure Afib Surgical History Surgical History History of insertion of tunneled central venous catheter (CVC) with port H/O insertion of cholecystostomy tube Status post embolization of uterine artery S/P colon resection PIC line (peripherally inserted central catheter) removal History of low anterior resection of rectum Status post cardiac catheterization Ileostomy in place H/O dilation and curettage History of exploratory laparotomy (05/11/23) S/P colostomy Colovesical fistula History of esophagogastroduodenoscopy (EGD) Hx of colonoscopy Social History Social History Household Members: None Housing: House Are you a primary account executive healthcare to a significant other at home: No Do you presently have visiting nurse or other home services: Yes Unable to assess alcohol history related to: Unknown Alcohol intake: never Comment: pt declined alarms; intermittently assistance Patient Tobacco Use Status: Former Tobacco user Tobacco use type: Cigarette Cigarette Packs Per Day: 0.5 Cigarettes Per Day: 10.0 Years Smoked: 25 e-Cigarette/Vaping Use: Former Use Second Hand Smoke Exposure: No Substance Use Type: Marijuana Advance Directives: Yes Advance Directives on File: Yes Advance Directives Date on File: 12/29/23 service: No Cognitive needs: No Hearing needs: No Vision needs: Yes Meds Allergies Allergy/AdvReac Type Severity Reaction Status Date / Time clams Allergy Severe Stomach Verified 04/27/25 10:39 Upset clavulanic acid (Augmentin) Allergy Unknown GI, Verified 04/27/25 10:39 Difficulty breathing codeine (CODEINE) Allergy Unknown SENSITIVIT Verified 04/27/25 10:39 Y erythromycin base Allergy Unknown GI, DIFF Verified 04/27/25 10:39 (Erythromycin Base) BREATHING Sulfa (Sulfonamide Allergy Unknown RASH Verified 04/27/25 10:39 Antibiotics) morphine (MORPHINE) AdvReac Severe Difficulty Verified 04/27/25 10:39 Breathing aspirin (Aspirin) AdvReac Mild STOMACH Verified 04/27/25 10:39 UPSET melatonin AdvReac Vomiting Verified 04/27/25 10:39 Active Medications: Current Medications Magnesium Sulfate (Magnesium Sulfate/H2o) 2 gm in 50 mls @ 25 mls/hr IV ONCE ONE Stop: 04/27/25 14:26 Last Admin: 04/27/25 12:49 Dose: 25 mls/hr Albumin Human (Kedbumin 25 %) 100 mls @ 133.333 mls/hr IV Q1H ARISTIDES Stop: 04/27/25 15:14 Sodium Chloride (Ns) 1,000 mls @ 999 mls/hr IV .Q1H1M ARISTIDES Stop: 04/27/25 14:45 Last Admin: 04/27/25 13:50 Dose: 999 mls/hr Home Medications ?Medication ?Instructions ?Recorded ?Confirmed ?Last Taken ?Type mirtazapine 15 mg tablet 15 mg PO BEDTIME 11/30/23 04/25/25 03/30/25 History multivitamin with minerals-folic 1 tab PO DAILY 01/07/24 04/25/25 03/30/25 History acid 200 mcg chewable tablet (Multivitamin Gummies) amiodarone 200 mg tablet 200 mg PO DAILY 02/19/25 04/25/25 03/30/25 History apixaban 5 mg tablet (Eliquis) 5 mg PO BID 02/19/25 04/25/25 03/30/25 History colchicine 0.6 mg tablet 0.6 mg PO DAILY 02/19/25 04/25/25 03/30/25 History esomeprazole magnesium 20 mg 20 mg PO DAILY@0630 02/19/25 04/25/25 03/30/25 History capsule,delayed release (Nexium) cyanocobalamin (vitamin B-12) 1,000 mcg PO DAILY 03/31/25 04/25/25 03/30/25 History 1,000 mcg tablet (Vitamin B-12) carisoprodol 350 mg tablet 350 mg PO BEDTIME PRN Difficulty 04/25/25 04/25/25 Unknown History sleeping carvedilol 6.25 mg tablet 6.25 mg PO Q12H 04/25/25 04/25/25 Unknown History carvedilol 6.25 mg tablet (Coreg) 6.25 mg PO BID 04/25/25 Unknown History magnesium oxide 400 mg PO BID 04/25/25 04/25/25 Unknown History potassium chloride 10 mEq 10 meq PO BID 04/25/25 04/25/25 Unknown History capsule,extended release potassium chloride 20 mEq 20 meq PO BID 04/25/25 04/25/25 Unknown History tablet,extended release Physical Exam Vital Signs: Vital Signs: Last Vital Signs Temp 99.5 F 04/27/25 10:36 Pulse 79 04/27/25 14:00 Resp 16 04/27/25 10:36 BP 92/53 L 04/27/25 14:00 Pulse Ox 97 04/27/25 10:36 BMI result Body Mass Index 21.4 General: Elderly lady chronically ill appearing and tired appearing Nutritional Appearance: well nourished and overweight Eyes: appearance normal, both eyes and all related structures; Alignment and Position: alignment normal and position normal Neck: No lymphadenopathy, no thyromegaly Resp: bilateral air entry equal, occasional added sounds present Cardio: Regular rate, regular rhythm; Heart sounds: S1 normal heart sound present and S2 normal heart sound present GI: soft, nontender, no guarding, no hepatosplenomegaly, ostomy looks okay, a fistulous track leaking blood : bladder normal to inspection, bladder normal to palpation, no renal angle tenderness Skin: no rashes or lesions noted and elasticity normal Neuro: oriented to person, oriented to place, oriented to time and moves all extremities Neuro: Cranial nerves: Yes Normal hearing present Results Labs 04/27/25 13:48 04/27/25 11:23 Labs: Laboratory Results - last 24 hr 04/27/25 04/27/25 04/27/25 11:23 13:48 13:53 MCV 85.8 86.6 MCH 29.2 29.3 MCHC 34.0 33.9 RDW 16.1 H 16.4 H Plt Count 296 227 MPV 9.5 9.4 Immature Gran % (Auto) 1.0 H Neut % (Auto) 87.6 H Lymph % (Auto) 4.7 L [place] % (Auto) 6.4 Eos % (Auto) 0.0 Baso % (Auto) 0.3 Lymph # (Auto) 1.4 [place] # (Auto) 1.9 H Eos # (Auto) 0.0 Baso # (Auto) 0.1 Abs Immat Gran (auto) 0.28 H Absolute Neuts (auto) 25.8 H Absolute Nucleated RBC 0.000 Nucleated RBC % (auto) 0.0 Smear Tech's Comments VERIFIED PT 23.4 H INR 2.0 H Anion Gap 18 Estim Creat Clear Calc 23.5 Estimated GFR 27 Random Glucose 104 Lactic Acid 1.3 Calcium 7.9 L Magnesium 1.3 L* Total Bilirubin 0.6 AST 49 H ALT 15 Alkaline Phosphatase 219 H Total Protein 7.3 Albumin 2.7 L Crossmatch See Detail Assessment and Plan (1) Hemorrhagic shock: Status: Acute (2) Diverticulosis: Status: Acute (3) Hiatal hernia: Status: Acute (4) Acute blood loss anemia: Status: Acute Plan Hemorrhage Shock: Possibly secondary to bleeding from the fistulous track We will give her 1 unit of PRBC as she is actively bleeding, 200 cc of albumin and a L of normal saline Bedside echo showing normal LV systolic function, collapsing IVC Received Kcentra to reverse Eliquis Closely monitor CBC q.6 hours and we will transfuse as needed CAD: We will withhold antiplatelets as of now Renal: Acute kidney injury possibly secondary to prerenal from hypovolemic shock Baseline creatinine normal, creatinine today is 1 point We will closely monitor I's and O's Avoid nephrotoxic medications Acute blood loss anemia: We will monitor CBC q.6 and transfuse as needed for shock and to keep hemoglobin above 7 Endocrine: Blood sugars under control Sliding scale insulin as needed Infectious disease: We will send pancultures We will start on empiric Zosyn and Zyvox given history of recurrent infections Musculoskeletal: Decubitus ulcer prevention protocol Lines: Peripheral Prophylaxis: SCD, pantoprazole
--- NOTE | 2025-04-27 14:21 | PM.CNGS ---
History of Present Illness Consult details Consult date: 04/27/25 Requesting physician: Cassandra Guerrero Narrative: 65 year old female well known to the surgical service with extensive PMH of HTN, HLD, CAD, CHF, aflutter on eliquis, IBS, pancreatitis and extensive surgical history including subtotal colectomy, end ileostomy and parastomal hernia repair at [facility] in January of 2025 complicated by multiple intraabdominal abscesses requiring IR drainage. She has had multiple recent admissions for pancreatitis/electrolyte abnormalities as well as anemia, fibroids s/p uterine artery embolization. She presents to the emergency department today with new onset of bleeding from the left upper quadrant abdomen. The bleeding was associated with decreased blood pressure and tachycardia. She had a previous episode of similar bleeding last month which developed in the right upper quadrant above the ileostomy. She reports that this blood appears similar to the the previous episode. She reports some achy pain associated with the bleeding site. Initial workup in the emergency department revealed a WBC of 23.4 K, with a hemoglobin of 8.1. Her hemoglobin on a previous admission was 9.2. A CT abdomen and pelvis was performed today which revealed ?Decrease in size of the complex fluid collection superior to ileostomy, currently measuring up to 4.9 cm and previously measuring up to 5.9 cm. There is a tract which extends to the skin, likely secondary to recent percutaneous drain. This could be resolving hematoma. Abscess or seroma may also be considered.? Review of Systems Review of Systems: Yes all other systems are reviewed and are negative PMFSH Past Medical History Medical History History of sigmoidoscopy Multinodular thyroid Chronic vomiting Hypocalcemia Iron deficiency anemia Hyponatremia Hypomagnesemia Acute cholecystitis Atrial flutter CAD (coronary artery disease) History of acute cholecystitis History of pancreatitis Pancreatitis Insomnia Bilateral knee pain Polyarthralgia MARKIE (acute kidney injury) Back pain Arthritis History of transfusion of packed red blood cells Anemia Cardiomyopathy MARKIE (acute kidney injury) MARKIE (acute kidney injury) Anxiety Small bowel obstruction Myocardial infarction NSTEMI (non-ST elevated myocardial infarction) NSVT (nonsustained ventricular tachycardia) PVC (premature ventricular contraction) Hypertension Perforated diverticulum Irritable bowel syndrome with constipation Barretts esophagus GERD (gastroesophageal reflux disease) Family History Family History Father Colon cancer Congestive heart failure Paternal Aunt Colon cancer Mother Congestive heart failure Afib Surgical History Surgical History History of insertion of tunneled central venous catheter (CVC) with port H/O insertion of cholecystostomy tube Status post embolization of uterine artery S/P colon resection PIC line (peripherally inserted central catheter) removal History of low anterior resection of rectum Status post cardiac catheterization Ileostomy in place H/O dilation and curettage History of exploratory laparotomy (05/11/23) S/P colostomy Colovesical fistula History of esophagogastroduodenoscopy (EGD) Hx of colonoscopy Social History Social History Household Members: None Housing: House Are you a primary rn acute care to a significant other at home: No Do you presently have visiting nurse or other home services: Yes Unable to assess alcohol history related to: Unknown Alcohol intake: never Comment: pt declined alarms; intermittently assistance Patient Tobacco Use Status: Former Tobacco user Tobacco use type: Cigarette Cigarette Packs Per Day: 0.5 Cigarettes Per Day: 10.0 Years Smoked: 25 e-Cigarette/Vaping Use: Former Use Second Hand Smoke Exposure: No Substance Use Type: Marijuana Advance Directives: Yes Advance Directives on File: Yes Advance Directives Date on File: 12/29/23 service: No Cognitive needs: No Hearing needs: No Vision needs: Yes Meds Allergies Allergy/AdvReac Type Severity Reaction Status Date / Time clams Allergy Severe Stomach Verified 04/27/25 10:39 Upset clavulanic acid (Augmentin) Allergy Unknown GI, Verified 04/27/25 10:39 Difficulty breathing codeine (CODEINE) Allergy Unknown SENSITIVIT Verified 04/27/25 10:39 Y erythromycin base Allergy Unknown GI, DIFF Verified 04/27/25 10:39 (Erythromycin Base) BREATHING Sulfa (Sulfonamide Allergy Unknown RASH Verified 04/27/25 10:39 Antibiotics) morphine (MORPHINE) AdvReac Severe Difficulty Verified 04/27/25 10:39 Breathing aspirin (Aspirin) AdvReac Mild STOMACH Verified 04/27/25 10:39 UPSET melatonin AdvReac Vomiting Verified 04/27/25 10:39 Active Medications: Current Medications Magnesium Sulfate (Magnesium Sulfate/H2o) 2 gm in 50 mls @ 25 mls/hr IV ONCE ONE Stop: 04/27/25 14:26 Last Admin: 04/27/25 12:49 Dose: 25 mls/hr Albumin Human (Kedbumin 25 %) 100 mls @ 133.333 mls/hr IV Q1H ARISTIDES Stop: 04/27/25 15:14 Sodium Chloride (Ns) 1,000 mls @ 999 mls/hr IV .Q1H1M ARISTIDES Stop: 04/27/25 14:45 Last Admin: 04/27/25 13:50 Dose: 999 mls/hr Home Medications ?Medication ?Instructions ?Recorded ?Confirmed ?Last Taken ?Type mirtazapine 15 mg tablet 15 mg PO BEDTIME 11/30/23 04/25/25 03/30/25 History multivitamin with minerals-folic 1 tab PO DAILY 01/07/24 04/25/25 03/30/25 History acid 200 mcg chewable tablet (Multivitamin Gummies) amiodarone 200 mg tablet 200 mg PO DAILY 02/19/25 04/25/25 03/30/25 History apixaban 5 mg tablet (Eliquis) 5 mg PO BID 02/19/25 04/25/25 03/30/25 History colchicine 0.6 mg tablet 0.6 mg PO DAILY 02/19/25 04/25/25 03/30/25 History esomeprazole magnesium 20 mg 20 mg PO DAILY@0630 02/19/25 04/25/25 03/30/25 History capsule,delayed release (Nexium) cyanocobalamin (vitamin B-12) 1,000 mcg PO DAILY 03/31/25 04/25/25 03/30/25 History 1,000 mcg tablet (Vitamin B-12) carisoprodol 350 mg tablet 350 mg PO BEDTIME PRN Difficulty 04/25/25 04/25/25 Unknown History sleeping carvedilol 6.25 mg tablet (Coreg) 6.25 mg PO BID 04/25/25 Unknown History magnesium oxide 400 mg PO BID 04/25/25 04/25/25 Unknown History potassium chloride 10 mEq 10 meq PO BID 04/25/25 04/25/25 Unknown History capsule,extended release potassium chloride 20 mEq 20 meq PO BID 04/25/25 04/25/25 Unknown History tablet,extended release hydromorphone 2 mg tablet 1 - 2 mg PO Q8H PRN pain 04/27/25 Unknown History hydromorphone 4 mg tablet 4 mg PO Q4H PRN pain 04/27/25 Unknown History [id number] 3 cap PO TIDWM 04/27/25 04/27/25 Unknown History 12,000-38,000-60,000 unit capsule,delayed rel (Creon) Physical Exam Vital Signs: Vital Signs: Last Vital Signs Temp 99.5 F 04/27/25 10:36 Pulse 79 04/27/25 14:00 Resp 16 04/27/25 10:36 BP 92/53 L 04/27/25 14:00 Pulse Ox 97 04/27/25 10:36 BMI result Body Mass Index 21.4 Const: General: no acute distress Nutritional Appearance: thin Orientation/consciousness: patient oriented x3 HEENT: Other: Dry mucosa Resp: Effort & Inspection: normal respiratory effort, no audible wheezes, no cough and no respiratory distress GI: Other: Ileostomy in the right lower quadrant. To the left of this is an open wound measuring approximately 1 cm in diameter reducing dark blood consistent with an infected hematoma. This is able to be further expressed with light pressure on the abdomen. No active bleeding is appreciated at this time. Dry ABD pad was applied. Skin: Other: Warm, dry, no rash Neuro: General: patient oriented x3 Results Labs 04/27/25 13:48 04/27/25 11:23 Labs: Abnormal lab results 04/27/25 04/27/25 04/27/25 Range/Units 11:23 13:48 13:53 WBC 29.4 H 23.4 H (4.8-10.8) X10*3/uL RBC 3.32 L 2.76 L (4.20-5.50) X10*6/uL Hgb 9.7 L 8.1 L (12.0-16.0) g/dl Hct 28.5 L 23.9 L (37.0-47.0) % RDW 16.1 H 16.4 H (11.0-16.0) % Immature Gran % (Auto) 1.0 H 0.8 H (0.0-0.4) % Neut % (Auto) 87.6 H 87.0 H (45-73) % Lymph % (Auto) 4.7 L 5.6 L (20-40) % [place] # (Auto) 1.9 H 1.5 H (0.1-1.2) X10*3/uL Abs Immat Gran (auto) 0.28 H 0.19 H (0.00-0.03) X10*3/uL Absolute Neuts (auto) 25.8 H 20.4 H (2.0-8.3) x10*3/uL PT 23.4 H (10.9-12.4) SEC INR 2.0 H (0.9-1.1) Sodium 130 L (135-145) mmol/L Chloride 92 L (96-108) mmol/L BUN 29 H (9-16) mg/dL Creatinine 1.86 H (0.5-1.4) mg/dL Calcium 7.9 L (8.4-10.2) mg/dL Magnesium 1.3 L* (1.6-2.6) mg/dL AST 49 H (5-31) U/L Alkaline Phosphatase 219 H (39-117) U/L Albumin 2.7 L (3.5-5.0) g/dL Crossmatch See Detail Short CBC 04/27/25 04/27/25 Range/Units 11:23 13:48 WBC 29.4 H 23.4 H (4.8-10.8) X10*3/uL Hgb 9.7 L 8.1 L (12.0-16.0) g/dl Hct 28.5 L 23.9 L (37.0-47.0) % Plt Count 296 227 (160-400) X10*3/uL BMP 04/27/25 11:23 Sodium 130 L Potassium 4.2 Chloride 92 L Carbon Dioxide 24 BUN 29 H Creatinine 1.86 H Calcium 7.9 L Liver Function 04/27/25 Range/Units 11:23 Total Bilirubin 0.6 (0.0-1.0) mg/dL AST 49 H (5-31) U/L ALT 15 (0-31) U/L Alkaline Phosphatase 219 H (39-117) U/L Albumin 2.7 L (3.5-5.0) g/dL All other labs normal. Assessment and Plan (1) Hypotension: Qualifiers: Hypotension type: hypotension due to hypovolemia Qualified Code(s): E86.1 - Hypovolemia Status: Acute (2) Leukocytosis: Status: Acute (3) Abscess: Status: Acute (4) Abdominal wall fistula: Status: Acute Plan 65-year-old female patient well known to the surgical service with multiple medical problems, on oral anticoagulation for paroxysmal atrial fibrillation now presenting with an infected hematoma the abdominal wall. This began to spontaneously drain this morning and she is found to have a pocket which probably is communicating with the previously draining collection in the right upper quadrant. This will continue to drain over the next several days as the pocket closes. Agree with transfusion and holding the anticoagulation. Dressing changes to abdominal wall as needed. We will continue to monitor her abdominal wounds. Procedures Date of Service Date of Service: 04/27/25
[2025-04-27] MEDS: Albumin Human 25 % 100 ML 133.33 ML IV ×2 (14:39→15:46)
--- NOTE | 2025-04-27 14:44 | PC.NURSE ---
Report given to ORACLE TECHNICAL ARCHITECT, awaiting ICU bed assignment
--- NOTE | 2025-04-27 14:51 | PHA.MEDREC ---
Pharmacy Consult ? Medication Reconciliation Pharmacy has completed the medication reconciliation. PAtient incredibly knowledgeable about home meds, has been in and out of the hosiptal over past few months so some claims seem outdated. 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 No longer taking carvedilol d/t low BP.
[2025-04-27 15:25] LABS: Hematocrit 21.7 % (37.0-47.0); Hemoglobin 7.3 g/dl (12.0-16.0); Imm Gran Abs Auto 0.21 X10*3/uL (0.00-0.03); Imm Gran Pct Auto 0.9 % (0.0-0.4); Lymphocytes Absolute Auto 1.6 X10*3/uL (1.2-4.9); MANUAL DIFF FLAG SCAN; Mean Corpuscular HGB Conc 33.6 g/dl (31.0-35.0); Mean Corpuscular Hemoglobin 29.4 pg (27.0-33.0); Mean Corpuscular Volume 87.5 fL (80.0-98.0); NRBC Abs Auto 0.000 X10*3/uL (0.0-0.012); NRBC Pct Auto 0.0 /100WBC (0.0-0.2); Platelet Count 209 X10*3/uL (160-400); Red Blood Count 2.48 X10*6/uL (4.20-5.50); SCAN SMEAR FLAG 1; White Blood Count 24.3 X10*3/uL (4.8-10.8)
[2025-04-27] MEDS: Linezolid/D5W 600 MG/300 ML PIGGYBACK 300 MG IV (17:41)
--- NOTE | 2025-04-27 18:27 | HO.SKINPHOTO ---
Location: Gluteal fold
--- NOTE | 2025-04-27 19:28 | PC.NURSE ---
The patient arrived at the ICU approx. at 1505 from ED ? Neuro: Alert & Oriented Respiratory: On RA, fine crackles BL bases Cardiac:? SR-SB on tele, On Levophed gtt per NOV. GI/: Ileostomy, + bowel sounds, Poor PO intake Skin: MIKI drain site left posterior, Slit to gluteal fold, wound BL sides of ileostomy? Temp: Afebrile? Infectious: IV antibiotics Lines: Implanted Port left chest,? peripheral IV x1. 1 Unit RBC transfusing?
[2025-04-27 21:13] LABS: Hematocrit 26.8 % (37.0-47.0); Hemoglobin 9.0 g/dl (12.0-16.0); Imm Gran Abs Auto 0.17 X10*3/uL (0.00-0.03); Imm Gran Pct Auto 0.7 % (0.0-0.4); Lymphocytes Absolute Auto 2.1 X10*3/uL (1.2-4.9); MANUAL DIFF FLAG SCAN; Mean Corpuscular HGB Conc 33.6 g/dl (31.0-35.0); Mean Corpuscular Hemoglobin 29.3 pg (27.0-33.0); Mean Corpuscular Volume 87.3 fL (80.0-98.0); NRBC Abs Auto 0.000 X10*3/uL (0.0-0.012); NRBC Pct Auto 0.0 /100WBC (0.0-0.2); Platelet Count 231 X10*3/uL (160-400); Red Blood Count 3.07 X10*6/uL (4.20-5.50); SCAN SMEAR FLAG 1; White Blood Count 24.4 X10*3/uL (4.8-10.8)
[2025-04-27 22:01] LABS: Alanine Aminotransferase < 6 U/L (0-31); Albumin Level 3.0 g/dL (3.5-5.0); Alkaline Phosphatase 129 U/L (39-117); Anion Gap 15 (12-20); Aspartate Amino Transferase 32 U/L (5-31); Blood Urea Nitrogen 21 mg/dL (9-16); Calcium 6.9 mg/dL (8.4-10.2); Carbon Dioxide 19 mmol/L (22-29); Chloride 102 mmol/L (96-108); Creatinine Clr Calc Pharmacy 29.8; Estimated Glomerular Filt Rate 36; Magnesium 2.1 mg/dL (1.6-2.6); Potassium 3.2 mmol/L (3.3-5.1); Sodium 133 mmol/L (135-145); Total Protein 5.8 g/dL (6.5-8.0)
[2025-04-28] VITALS (46 sets, daily range): BP systolic 85–142; BP diastolic 50–86; PULSE 49–108; RESP 9–17; TEMP 36.1–36.6; O2SAT 90–100; BMI 25.8
[2025-04-28] MEDS: Lactated Ringers 1,000 ML 100 ML IVCONT (01:08)
[2025-04-28 02:54] LABS: MANUAL DIFF FLAG NO
[2025-04-28] MEDS: Potassium Chloride/H20 10 MEQ/100 ML PIGGYBACK 100 MEQ IV ×2 (03:00→03:53)
[2025-04-28 03:24] LABS: Hematocrit 22.9 % (37.0-47.0); Hemoglobin 7.7 g/dl (12.0-16.0); Imm Gran Abs Auto 0.07 X10*3/uL (0.00-0.03); Imm Gran Pct Auto 0.6 % (0.0-0.4); Lymphocytes Absolute Auto 1.5 X10*3/uL (1.2-4.9); Mean Corpuscular HGB Conc 33.6 g/dl (31.0-35.0); Mean Corpuscular Hemoglobin 29.3 pg (27.0-33.0); Mean Corpuscular Volume 87.1 fL (80.0-98.0); NRBC Abs Auto 0.000 X10*3/uL (0.0-0.012); NRBC Pct Auto 0.0 /100WBC (0.0-0.2); Platelet Count 178 X10*3/uL (160-400); Red Blood Count 2.63 X10*6/uL (4.20-5.50); White Blood Count 12.6 X10*3/uL (4.8-10.8)
[2025-04-28] MEDS: Linezolid/D5W 600 MG/300 ML PIGGYBACK 300 MG IV ×2 (03:52→16:41)
[2025-04-28] MEDS: Lidocaine 4 % Patch ADH..PATCH 1 PATCH TRANSDERMA (04:25)
--- NOTE | 2025-04-28 05:27 | PC.NURSE ---
Assumed care of patient at 1945. Neuro: Patient is alert and oriented x 4. Cardiac: Sinus rhythm on monitor for majority of night, some PVC?s. Few episodes of bradying into 40?s, nonsustaining. Patient has history of paroxysmal afib. Titrated levo throughout night (see MAR). Resp: Room Air. Crackles in b/l bases, otherwise clear.? GI/: ileostomy in place, emptying brown stool. Patient reported to this RN she had not voided since earlier in day, bladder scanned for 262. She reports that she is unable to void via bedpan/external catheter, requested to be straight cath?ed. Provider notified. This RN provided education to patient about risk of infection with catheterization, and offered both bedpan/external cath as options to attempt natural void. She declined. Provider notified and patient was straight cath?ed for 250cc of dariel urine. Bladder scanned again at 0500 for 175cc. Integumentary/Musculoskeletal: Dressings on bilateral sides of ileostomy have remained clean, dry and intact, no evidence of drainage. Slit noted on gluteal fold. Blood Bank: Finished transfusing 1 unit PRBC, and transfused 2/4 FFP. Drain: MIKI drain on right posterior of abd. Patient complaining of 10/10 back/abd pain throughout the night. Dilaudid 0.5mg PRN administered per NOV. Provider notified of persistent pain. 975 tylenol, lidocaine patch administered with much encouragement. Hot packs also given. Patient refusing repositioning at this time. Infectious Disease: Administered zosyn and zyvox per NOV.
[2025-04-28 05:39] LABS: Alanine Aminotransferase 8 U/L (0-31); Albumin Level 2.8 g/dL (3.5-5.0); Alkaline Phosphatase 114 U/L (39-117); Anion Gap 15 (12-20); Aspartate Amino Transferase 26 U/L (5-31); Blood Urea Nitrogen 19 mg/dL (9-16); Calcium 7.1 mg/dL (8.4-10.2); Carbon Dioxide 21 mmol/L (22-29); Chloride 101 mmol/L (96-108); Creatinine Clr Calc Pharmacy 32.1; Estimated Glomerular Filt Rate 39; Magnesium 1.9 mg/dL (1.6-2.6); Potassium 3.3 mmol/L (3.3-5.1); Sodium 134 mmol/L (135-145); Total Protein 5.5 g/dL (6.5-8.0)
[2025-04-28] MEDS: Calcium Gluconate/NaCl,Iso-Osm 1 GM/50 ML PLAST..BAG IV ×2 (06:22→15:27)
--- NOTE | 2025-04-28 08:37 | PM.PNGS ---
Subjective Subjective Date of Service: 04/28/25 Interval history: Remains in ICU on pressors. Overall feels better but is complaining of pain at the LUQ drainage site. Physical Exam Vital Signs: Vital Signs: Last Vital Signs Temp 97.6 F 04/28/25 02:53 Pulse 75 04/28/25 08:35 Resp 11 L 04/28/25 06:00 BP 127/75 04/28/25 08:35 Pulse Ox 98 04/28/25 06:00 O2 Del Method Room Air 04/28/25 06:00 BMI result Body Mass Index 25.8 Const: General: comfortable, no acute distress and alert; No ill appearing Resp: Effort & Inspection: normal respiratory effort GI: Other: LUQ with 0.5cm open wound with thick old bloody drainage, slightly malodorous some scanty purulent drainage from old drainage site at right mid abdomen RUQ cholecystostomy tube in place ileostomy appliance in place Objective Data Active Medications Hydromorphone HCl (Hydromorphone Hcl 1 Mg/Ml Syringe) 1 mg IVPUSH Q4H PRN; Protocol PRN Reason: Pain, Severe (Pain Scale 7-10) Lactated Ringer's (Lr) 1,000 mls @ 100 mls/hr IVCONT .Q10H [facility] Last Admin: 04/28/25 01:08 Dose: 100 mls/hr Documented By: SEVEN Norepinephrine Bitartrate (Levophed) 8 mg in 250 mls @ 0 mls/hr IV .Q0M [facility]; Protocol Last Titration: 04/28/25 08:35 Dose: 0.01 mcg/kg/min, 0.99 mls/hr Documented By: SENIA Piperacillin Sod/Tazobactam (Sod 3.375 gm/ Sodium Chloride) 50 mls @ 100 mls/hr IV Q6H [facility] Last Infusion: 04/28/25 05:47 Dose: Infused Documented By: SEVEN Linezolid (Zyvox/D5w) 600 mg in 300 mls @ 300 mls/hr IV Q12H [facility] Last Infusion: 04/28/25 04:52 Dose: Infused Documented By: SEVEN Lidocaine (Lidocaine 4 % Patch Adh..Patch) 1 patch TRANSDERMA DAILY [facility]; Protocol Last Admin: 04/28/25 04:25 Dose: 1 patch Documented By: SEVEN Ondansetron HCl (Ondansetron Hcl 4 Mg/2 Ml Vial) 4 mg IVPUSH Q8H PRN PRN Reason: Nausea and Vomiting Pantoprazole Sodium (Pantoprazole Sodium 40 Mg/10 Ml Vial) 40 mg IVPUSH DAILY@0630 [facility] Last Admin: 04/28/25 06:19 Dose: 40 mg Documented By: SEVEN Labs 04/28/25 02:49 04/28/25 04:20 Labs: Laboratory Results - last 24 hr 04/27/25 04/27/25 04/27/25 11:23 13:48 13:53 MCV 85.8 86.6 MCH 29.2 29.3 MCHC 34.0 33.9 RDW 16.1 H 16.4 H Plt Count 296 227 MPV 9.5 9.4 Immature Gran % (Auto) 1.0 H 0.8 H Neut % (Auto) 87.6 H 87.0 H Lymph % (Auto) 4.7 L 5.6 L [place] % (Auto) 6.4 6.4 Eos % (Auto) 0.0 0.0 Baso % (Auto) 0.3 0.2 Lymph # (Auto) 1.4 1.3 [place] # (Auto) 1.9 H 1.5 H Eos # (Auto) 0.0 0.0 Baso # (Auto) 0.1 0.0 Abs Immat Gran (auto) 0.28 H 0.19 H Absolute Neuts (auto) 25.8 H 20.4 H Absolute Nucleated RBC 0.000 0.000 Nucleated RBC % (auto) 0.0 0.0 Smear Tech's Comments VERIFIED PT 23.4 H INR 2.0 H Anion Gap 18 Estim Creat Clear Calc 23.5 Estimated GFR 27 Random Glucose 104 Lactic Acid 1.3 Calcium 7.9 L Phosphorus Magnesium 1.3 L* Total Bilirubin 0.6 AST 49 H ALT 15 Alkaline Phosphatase 219 H Total Protein 7.3 Albumin 2.7 L Blood Type O Positive Antibody Screen NEGATIVE Crossmatch See Detail 04/27/25 04/27/25 04/27/25 15:18 21:07 21:32 MCV 87.5 87.3 MCH 29.4 29.3 MCHC 33.6 33.6 RDW 16.2 H 15.5 Plt Count 209 231 MPV 9.4 9.1 L Immature Gran % (Auto) 0.9 H 0.7 H Neut % (Auto) 85.1 H 82.4 H Lymph % (Auto) 6.5 L 8.5 L [place] % (Auto) 7.2 7.9 Eos % (Auto) 0.1 0.1 Baso % (Auto) 0.2 0.4 Lymph # (Auto) 1.6 2.1 [place] # (Auto) 1.8 H 1.9 H Eos # (Auto) 0.0 0.0 Baso # (Auto) 0.1 0.1 Abs Immat Gran (auto) 0.21 H 0.17 H Absolute Neuts (auto) 20.7 H 20.1 H Absolute Nucleated RBC 0.000 0.000 Nucleated RBC % (auto) 0.0 0.0 Smear Tech's Comments VERIFIED PT INR Anion Gap 15 Estim Creat Clear Calc 29.8 Estimated GFR 36 Random Glucose 102 Lactic Acid Calcium 6.9 L D Phosphorus 2.7 Magnesium 2.1 Total Bilirubin 0.9 AST 32 H ALT < 6 Alkaline Phosphatase 129 H Total Protein 5.8 L Albumin 3.0 L Blood Type Antibody Screen Crossmatch 04/28/25 04/28/25 02:49 04:20 MCV 87.1 MCH 29.3 MCHC 33.6 RDW 15.7 Plt Count 178 MPV 9.1 L Immature Gran % (Auto) 0.6 H Neut % (Auto) 79.3 H Lymph % (Auto) 12.1 L [place] % (Auto) 6.5 Eos % (Auto) 0.9 Baso % (Auto) 0.6 Lymph # (Auto) 1.5 [place] # (Auto) 0.8 Eos # (Auto) 0.1 Baso # (Auto) 0.1 Abs Immat Gran (auto) 0.07 H Absolute Neuts (auto) 10.0 H Absolute Nucleated RBC 0.000 Nucleated RBC % (auto) 0.0 Smear Tech's Comments PT INR Anion Gap 15 Estim Creat Clear Calc 32.1 Estimated GFR 39 Random Glucose 113 Lactic Acid Calcium 7.1 L Phosphorus Magnesium 1.9 Total Bilirubin 0.7 AST 26 ALT 8 Alkaline Phosphatase 114 Total Protein 5.5 L Albumin 2.8 L Blood Type Antibody Screen Crossmatch Procedures Date of Service Date of Service: 04/28/25 Progress Note: A&P Assessment and plan (1) Abscess: Status: Acute Plan 65-year-old female patient well known to the surgical service with multiple medical problems, on oral anticoagulation for paroxysmal atrial fibrillation admitted for infected hematoma the abdominal wall in the LLQ. Collection thought to be communicating with the previously draining collection in the right upper quadrant. The site continues to spontaneously drain purulent/sanguineous (old) drainage, continue daily and PRN dressing changes. Cont IV abx. Further measures as per ICU team. We will continue to monitor. Hx of acute cholecystitis s/p cholecystostomy tube 04/02/25- drainage bulb bilious, clear appearing, cx from drainage were negative. Will attempt to clamp tube and see how she does. If able to tolerate diet without symptoms, will remove prior to dc. Time Spent With Patient Time: Total time managing care of this patient today ____ minutes. Quality Stroke Does the patient have a stroke diagnosis?: No VTE Prior VTE?: No VTE Risk Level:: Medical - moderate - high VTE Device Contraindication: N/A - Device Ordered VTE Drug Contraindication: Treatment Not Tolerated
--- NOTE | 2025-04-28 09:43 | P.PNCC_ITS ---
Subjective Subjective Date of Service: 04/28/25 Critical Care Time (minutes): 60 Physical Exam 2 Vital Signs: Vital Signs: Last Vital Signs Temp 97.6 F 04/28/25 02:53 Pulse 75 04/28/25 08:35 Resp 11 L 04/28/25 06:00 BP 127/75 04/28/25 08:35 Pulse Ox 98 04/28/25 06:00 O2 Del Method Room Air 04/28/25 06:00 BMI result Body Mass Index 25.8 Const: General: cooperative, healthy appearing, comfortable, no acute distress, well developed, alert, awake and Physically active O rientation/consciousness: oriented to person, oriented to place and oriented to time HEENT: Head: Yes normal to inspection, Yes normocephalic and Yes atraumatic Eyes: General: appearance normal, both eyes and all related structures Neck: Neck: Yes normal visual inspection, Yes full ROM, Yes no meningeal signs, Yes trachea midline and Yes supple Resp: Other: no appreciable rales, rhonchi, wheezing Effort & Inspection: normal respiratory effort Cardio: Rate: regular rate Rhythm: regular rhythm GI: Other: appreciable ileostomy bag; appreciable midline bandage, clean, dry; no appreciable tenderness to palpation throughout Inspection: No Abdominal wall edema and No distended Skin: General skin exam: no rashes or lesions noted Neuro: General: oriented to person, oriented to place, oriented to time, tone normal, moves all extremities, no meningeal signs and no focal motor deficits Extrem: General: Yes normal to inspection, Yes full ROM, Yes capillary refill normal and Yes no clubbing, cyanosis or edema Psych: Appearance: grossly normal Objective Data Labs 04/28/25 02:49 04/28/25 04:20 Labs: Laboratory Results - last 24 hr 04/27/25 04/27/25 04/27/25 11:23 13:48 13:53 WBC 29.4 H 23.4 H RBC 3.32 L 2.76 L Hgb 9.7 L 8.1 L Hct 28.5 L 23.9 L MCV 85.8 86.6 MCH 29.2 29.3 MCHC 34.0 33.9 RDW 16.1 H 16.4 H Plt Count 296 227 MPV 9.5 9.4 Immature Gran % (Auto) 1.0 H 0.8 H Neut % (Auto) 87.6 H 87.0 H Lymph % (Auto) 4.7 L 5.6 L [place] % (Auto) 6.4 6.4 Eos % (Auto) 0.0 0.0 Baso % (Auto) 0.3 0.2 Lymph # (Auto) 1.4 1.3 [place] # (Auto) 1.9 H 1.5 H Eos # (Auto) 0.0 0.0 Baso # (Auto) 0.1 0.0 Abs Immat Gran (auto) 0.28 H 0.19 H Absolute Neuts (auto) 25.8 H 20.4 H Absolute Nucleated RBC 0.000 0.000 Nucleated RBC % (auto) 0.0 0.0 Smear Tech's Comments VERIFIED PT 23.4 H INR 2.0 H Sodium 130 L Potassium 4.2 Chloride 92 L Carbon Dioxide 24 Anion Gap 18 BUN 29 H Creatinine 1.86 H Estim Creat Clear Calc 23.5 Estimated GFR 27 Random Glucose 104 Lactic Acid 1.3 Calcium 7.9 L Phosphorus Magnesium 1.3 L* Total Bilirubin 0.6 AST 49 H ALT 15 Alkaline Phosphatase 219 H Total Protein 7.3 Albumin 2.7 L Blood Type O Positive Antibody Screen NEGATIVE Crossmatch See Detail 04/27/25 04/27/25 04/27/25 15:18 21:07 21:32 WBC 24.3 H 24.4 H RBC 2.48 L 3.07 L D Hgb 7.3 L 9.0 L D Hct 21.7 L 26.8 L D MCV 87.5 87.3 MCH 29.4 29.3 MCHC 33.6 33.6 RDW 16.2 H 15.5 Plt Count 209 231 MPV 9.4 9.1 L Immature Gran % (Auto) 0.9 H 0.7 H Neut % (Auto) 85.1 H 82.4 H Lymph % (Auto) 6.5 L 8.5 L [place] % (Auto) 7.2 7.9 Eos % (Auto) 0.1 0.1 Baso % (Auto) 0.2 0.4 Lymph # (Auto) 1.6 2.1 [place] # (Auto) 1.8 H 1.9 H Eos # (Auto) 0.0 0.0 Baso # (Auto) 0.1 0.1 Abs Immat Gran (auto) 0.21 H 0.17 H Absolute Neuts (auto) 20.7 H 20.1 H Absolute Nucleated RBC 0.000 0.000 Nucleated RBC % (auto) 0.0 0.0 Smear Tech's Comments VERIFIED PT INR Sodium 133 L Potassium 3.2 L D Chloride 102 Carbon Dioxide 19 L Anion Gap 15 BUN 21 H Creatinine 1.47 H Estim Creat Clear Calc 29.8 Estimated GFR 36 Random Glucose 102 Lactic Acid Calcium 6.9 L D Phosphorus 2.7 Magnesium 2.1 Total Bilirubin 0.9 AST 32 H ALT < 6 Alkaline Phosphatase 129 H Total Protein 5.8 L Albumin 3.0 L Blood Type Antibody Screen Crossmatch 04/28/25 04/28/25 02:49 04:20 WBC 12.6 H RBC 2.63 L Hgb 7.7 L Hct 22.9 L MCV 87.1 MCH 29.3 MCHC 33.6 RDW 15.7 Plt Count 178 MPV 9.1 L Immature Gran % (Auto) 0.6 H Neut % (Auto) 79.3 H Lymph % (Auto) 12.1 L [place] % (Auto) 6.5 Eos % (Auto) 0.9 Baso % (Auto) 0.6 Lymph # (Auto) 1.5 [place] # (Auto) 0.8 Eos # (Auto) 0.1 Baso # (Auto) 0.1 Abs Immat Gran (auto) 0.07 H Absolute Neuts (auto) 10.0 H Absolute Nucleated RBC 0.000 Nucleated RBC % (auto) 0.0 Smear Tech's Comments PT INR Sodium 134 L Potassium 3.3 Chloride 101 Carbon Dioxide 21 L Anion Gap 15 BUN 19 H Creatinine 1.36 Estim Creat Clear Calc 32.1 Estimated GFR 39 Random Glucose 113 Lactic Acid Calcium 7.1 L Phosphorus Magnesium 1.9 Total Bilirubin 0.7 AST 26 ALT 8 Alkaline Phosphatase 114 Total Protein 5.5 L Albumin 2.8 L Blood Type Antibody Screen Crossmatch Progress Note: A&P Assessment and plan (1) Hemorrhagic shock: Status: Acute (2) Hematoma: Status: Resolved Plan Patient is a 65 Y F w/ hypertension, hyperlipidemia, CAD, paroxysmal atrial fibrillation on apixaban, prior pancreatitis, diverticulitis c/b perforation s/p colectomy, c/b intra-abdominal 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,?presenting to ED on 04/27 w/ bloody drainage from fistula found to be hypotensive, c/f hemorrhagic shock N: no acute issues CV: c/f hemorrhagic shock, s/p 1 pRBC and K-Centra on 04/27, to monitor closely; CAD, paroxysmal atrial fibrillation, to hold home apixaban in setting of hemorrhage R: no acute issues GI: prior diverticulitis c/b perforation s/p colectomy, c/b intra-abdominal 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, presenting w/ bloody drainage c/f infected hematoma, appreciate general surgery recommendations : acute renal insufficiency, to monitor renal indices H: hemorrhage c/b acute blood loss anemia, to monitor, transfuse as needed; given hemorrhage, to avoid chemical DVT prophylaxis, mechanical devices ID: given hypotension, empiric zosyn/zyvox; to follow-up infectious work-up E: to monitor hyper-/hypo-glycemia S: of note, patient prefers to defer daily updates w/ daughter/HCP unless medically necessary Quality Stroke Does the patient have a stroke diagnosis?: No VTE Prior VTE?: No VTE Risk Level:: Medical - moderate - high VTE Device Contraindication: N/A - Device Ordered VTE Drug Contraindication: Treatment Not Tolerated
[2025-04-28] MEDS: Albumin Human 25 % 50 ML 100 ML IV (09:53)
[2025-04-28] MEDS: Potassium Chloride/H20 20 MEQ/100 ML PIGGYBACK 100 MEQ IV (09:57)
--- NOTE | 2025-04-28 11:39 | MHC.CLN ---
CONSULT FOR WT LOSS PTS CURRENT WT 64KG (04/28/25) PREVIOUS WT 57.4KG (04/19/24) PT WITH STABLE WT AND NO SIGNIFICANT CHANGES AT THIS TIME CONTINUE CURRENT CARE PLAN
--- NOTE | 2025-04-28 12:15 | ECG_ITS ---
Test Reason : palpitations Blood Pressure : */* mmHG Vent. Rate : 71 BPM Atrial Rate : 71 BPM P-R Int : 194 ms QRS Dur : 66 ms QT Int : 448 ms P-R-T Axes : 60 28 23 degrees QTcB Int : 486 ms Normal sinus rhythm Low voltage QRS Borderline ECG When compared with ECG of 02-Apr-2025 18:02, T wave inversion no longer evident in Anterior leads Referred By: Etta Garcia Electronically Signed By: TERELL PATEL
--- NOTE | 2025-04-28 13:29 | HO.WOUND ---
Wound Consult: Initial 65yr old?female admitted to [facility] [place]25 - See progress notes and H&P for detailed history.? Wound consult placed for Wound near ostomy and Buttock wound.? Chart review, discussion with direct care team and photo reviewed recommendations made below. Abdominal abscess outside of ileostomy site treated and managed by General Surgery team. Dressing changed completed prior to my arrival. Topical recommendations in place per General surgery - will defer to them for topical care. Gluteal fold Etiology: ?MASD (Moisture Associated Skin Damage) ?Present on Admission Wound Bed: Base of skin fold with partial thickness tissue loss clean wound bed Drainage / Odor: scant serosang Edges: linear and attached ? Vicky wound: ?MASD - mirrored edges and hyperpigmentation noted - No Induration, Fluctuance or Warmth noted Goals of Treatment: ? Barrier cream and foam in use Recommendations: 1. Turn and Reposition every 2 hours and as needed for patient comfort.? Use pillows or wedges to support off loading positions. 2. Off Load all bony prominences with use of pillows and heel boots if needed.? Apply Preventative foams where needed. ? 3. Monitor for incontinence and moisture control, use barrier creams when needed for prevention and treatment. 4. Provide adequate and supplemental nutrition.? 5. Order low air loss mattress. 6. When applicable maintain blood glucose levels per Providers order. Buttock / Gluteal Fold - Off Load Pressure with Q2 hr turns and use of pillows - Cleanse with PH balance spray or wipes, pat dry. ?Apply thin layer of Triad to wound bed - only pat and dab no scrub and rub when soiling occurs. Reapply thin layer PRN after each episode of incontinence. May use foam if foam is not trapping moisture with in skin fold - if so continue with use of Triad / Barrier cream alone. Re-consult wound care Nurse for wound deterioration or wound changes.
[2025-04-28 13:35] LABS: Anion Gap 13 (12-20); Blood Urea Nitrogen 17 mg/dL (9-16); Calcium 7.4 mg/dL (8.4-10.2); Carbon Dioxide 23 mmol/L (22-29); Chloride 103 mmol/L (96-108); Creatinine Clr Calc Pharmacy 31.4; Estimated Glomerular Filt Rate 33; Magnesium 1.7 mg/dL (1.6-2.6); Potassium 3.7 mmol/L (3.3-5.1); Sodium 135 mmol/L (135-145)
[2025-04-28 13:39] LABS: Troponin-I High Sensitivity 20.7 ng/L (<3.5-17.0)
--- NOTE | 2025-04-28 15:35 | MHC.CM.PN ---
Pt admitted to ICU w/bleeding from abscess/wounds. Pt states she resides alone and has [facility] for skilled RN visits. She was working and driving at times. HCP on file: pt states her brother will transport her to home. Re-referred to [facility] for continued skilled RN visits.
[2025-04-28] MEDS: Potassium Phosphate/NS 15 MMOL/250 ML PLAST..BAG 62.5 MMOL IV ×2 (15:57→20:55)
[2025-04-28 16:49] LABS: Troponin-I High Sensitivity 25.3 ng/L (<3.5-17.0)
[2025-04-28 16:50] LABS: Anion Gap 14 (12-20); Blood Urea Nitrogen 16 mg/dL (9-16); Calcium 8.3 mg/dL (8.4-10.2); Carbon Dioxide 23 mmol/L (22-29); Chloride 102 mmol/L (96-108); Creatinine Clr Calc Pharmacy 32.0; Estimated Glomerular Filt Rate 34; Magnesium 2.3 mg/dL (1.6-2.6); Potassium 3.8 mmol/L (3.3-5.1); Sodium 135 mmol/L (135-145)
[2025-04-28 17:49] LABS: MANUAL DIFF FLAG NO
[2025-04-28 17:53] LABS: Hematocrit 25.6 % (37.0-47.0); Hemoglobin 8.5 g/dl (12.0-16.0); Imm Gran Abs Auto 0.12 X10*3/uL (0.00-0.03); Imm Gran Pct Auto 0.9 % (0.0-0.4); Lymphocytes Absolute Auto 1.2 X10*3/uL (1.2-4.9); Mean Corpuscular HGB Conc 33.2 g/dl (31.0-35.0); Mean Corpuscular Hemoglobin 29.4 pg (27.0-33.0); Mean Corpuscular Volume 88.6 fL (80.0-98.0); NRBC Abs Auto 0.000 X10*3/uL (0.0-0.012); NRBC Pct Auto 0.0 /100WBC (0.0-0.2); Platelet Count 195 X10*3/uL (160-400); Red Blood Count 2.89 X10*6/uL (4.20-5.50); White Blood Count 13.7 X10*3/uL (4.8-10.8)
--- NOTE | 2025-04-28 19:48 | PC.NURSE ---
Assueme care @ 0700 Neuro: Alert & Oriented Respiratory: On RA, fine crackles BL bases Cardiac:? SR-SB on tele, On Levophed gtt per NOV. GI/: Ileostomy, + bowel sounds, Poor PO intake Skin: MIKI drain site left posterior, clamped this am by surgical team, Slit to gluteal fold, wound BL sides of ileostomy DGS change by surgical team.? Temp: Afebrile? Infectious: IV antibiotics Lines: Implanted Port left chest,? peripheral IV x1. Pain management with Dilaudid per NOV
--- NOTE | 2025-04-28 21:00 | PC.NURSE ---
1 unit of FFP ordered from previous night not given, per [facility] hold at this time will recheck labs. plan of care continues
[2025-04-29] VITALS (31 sets, daily range): BP systolic 87–128; BP diastolic 59–87; PULSE 60–88; RESP 9–18; TEMP 35.7–37; O2SAT 92–100; BMI 25.9
[2025-04-29] MEDS: Linezolid/D5W 600 MG/300 ML PIGGYBACK 300 MG IV ×2 (04:46→16:22)
[2025-04-29 05:52] LABS: MANUAL DIFF FLAG NO
[2025-04-29 05:54] LABS: Hematocrit 27.2 % (37.0-47.0); Hemoglobin 9.1 g/dl (12.0-16.0); Imm Gran Abs Auto 0.12 X10*3/uL (0.00-0.03); Imm Gran Pct Auto 0.8 % (0.0-0.4); Lymphocytes Absolute Auto 1.3 X10*3/uL (1.2-4.9); Mean Corpuscular HGB Conc 33.5 g/dl (31.0-35.0); Mean Corpuscular Hemoglobin 29.4 pg (27.0-33.0); Mean Corpuscular Volume 88.0 fL (80.0-98.0); NRBC Abs Auto 0.000 X10*3/uL (0.0-0.012); NRBC Pct Auto 0.0 /100WBC (0.0-0.2); Platelet Count 222 X10*3/uL (160-400); Red Blood Count 3.09 X10*6/uL (4.20-5.50); White Blood Count 14.6 X10*3/uL (4.8-10.8)
[2025-04-29 06:11] LABS: Anion Gap 14 (12-20); Blood Urea Nitrogen 12 mg/dL (9-16); Calcium 7.5 mg/dL (8.4-10.2); Carbon Dioxide 19 mmol/L (22-29); Chloride 103 mmol/L (96-108); Creatinine Clr Calc Pharmacy 37.4; Estimated Glomerular Filt Rate 41; Magnesium 1.8 mg/dL (1.6-2.6); Potassium 3.4 mmol/L (3.3-5.1); Sodium 133 mmol/L (135-145)
--- NOTE | 2025-04-29 08:14 | P.PNGS_ITS ---
Subjective Subjective Date of Service: 04/29/25 Interval history: Remains on pressors in ICU. Had a difficulty night with vomiting overnight. Denies overt abd pain. Physical Exam 2 Vital Signs: Vital Signs: Last Vital Signs Temp 98.6 F 04/29/25 08:00 Pulse 72 04/29/25 08:00 Resp 15 04/29/25 08:00 BP 118/82 04/29/25 08:00 Pulse Ox 100 04/29/25 08:00 O2 Del Method Room Air 04/29/25 08:00 BMI result Body Mass Index 25.9 Const: General: comfortable, no acute distress and alert O rientation/consciousness: patient oriented x3 Resp: Effort & Inspection: normal respiratory effort GI: Other: cholecystostomy tube in RUQ ostomy right midabdomen, gas in appliance LUQ/mid abdominal wound continues with purulent/old bloody drainage, decreasing tender in RUQ/epigastric Inspection: No distended Skin: General skin exam: no rashes or lesions noted Neuro: General: patient oriented x3 Objective Data Active Medications Calcium Carbonate (Calcium Carbonate 750 Mg Tab.Chew) 750 mg PO Q4H PRN PRN Reason: Heartburn Last Admin: 04/29/25 04:52 Dose: 750 mg Documented By: SAPNA Hydromorphone HCl (Hydromorphone Hcl 1 Mg/Ml Syringe) 1 mg IVPUSH Q4H PRN; Protocol PRN Reason: Pain, Severe (Pain Scale 7-10) Last Admin: 04/29/25 01:16 Dose: 1 mg Documented By: EVA Norepinephrine Bitartrate (Levophed) 8 mg in 250 mls @ 0 mls/hr IV .Q0M [facility]; Protocol Last Titration: 04/29/25 02:11 Dose: 0.07 mcg/kg/min, 6.96 mls/hr Documented By: SEVEN Piperacillin Sod/Tazobactam (Sod 3.375 gm/ Sodium Chloride) 50 mls @ 100 mls/hr IV Q6H [facility] Last Infusion: 04/29/25 05:50 Dose: Infused Documented By: SAPNA Linezolid (Zyvox/D5w) 600 mg in 300 mls @ 300 mls/hr IV Q12H [facility] Last Infusion: 04/29/25 05:46 Dose: Infused Documented By: SAPNA Lidocaine (Lidocaine 4 % Patch Adh..Patch) 1 patch TRANSDERMA DAILY [facility]; Protocol Last Admin: 04/28/25 09:11 Dose: Not Given Documented By: SENIA Non-Admin Reason: Patient Refused Ondansetron HCl (Ondansetron Hcl 4 Mg/2 Ml Vial) 4 mg IVPUSH Q8H PRN PRN Reason: Nausea and Vomiting Last Admin: 04/29/25 01:21 Dose: 4 mg Documented By: EVA Pantoprazole Sodium (Pantoprazole Sodium 40 Mg/10 Ml Vial) 40 mg IVPUSH DAILY@0630 [facility] Last Admin: 04/29/25 05:17 Dose: 40 mg Documented By: SAPNA Labs 04/29/25 05:15 04/29/25 05:15 Labs: Laboratory Results - last 24 hr 04/27/25 04/28/25 04/28/25 13:53 12:53 16:06 MCV MCH MCHC RDW Plt Count MPV Immature Gran % (Auto) Neut % (Auto) Lymph % (Auto) Woods % (Auto) Eos % (Auto) Baso % (Auto) Lymph # (Auto) Woods # (Auto) Eos # (Auto) Baso # (Auto) Abs Immat Gran (auto) Absolute Neuts (auto) Absolute Nucleated RBC Nucleated RBC % (auto) Anion Gap 13 14 Estim Creat Clear Calc 31.4 32.0 Estimated GFR 33 34 Random Glucose 98 114 Calcium 7.4 L 8.3 L D Phosphorus 2.3 L 2.4 L Magnesium 1.7 2.3 TSH 3.60 Blood Type O Positive Antibody Screen NEGATIVE Crossmatch See Detail 04/28/25 04/28/25 04/29/25 16:06 17:34 05:15 MCV 88.6 88.0 MCH 29.4 29.4 MCHC 33.2 33.5 RDW 15.9 16.0 Plt Count 195 222 MPV 9.1 L 9.1 L Immature Gran % (Auto) 0.9 H 0.8 H Neut % (Auto) 81.1 H 80.9 H Lymph % (Auto) 8.7 L 9.2 L Woods % (Auto) 6.8 6.2 Eos % (Auto) 2.0 2.4 Baso % (Auto) 0.5 0.5 Lymph # (Auto) 1.2 1.3 Woods # (Auto) 0.9 0.9 Eos # (Auto) 0.3 0.4 Baso # (Auto) 0.1 0.1 Abs Immat Gran (auto) 0.12 H 0.12 H Absolute Neuts (auto) 11.1 H 11.8 H Absolute Nucleated RBC 0.000 0.000 Nucleated RBC % (auto) 0.0 0.0 Anion Gap 14 Estim Creat Clear Calc 37.4 Estimated GFR 41 Random Glucose 136 H Calcium 7.5 L D Phosphorus 4.2 Magnesium 1.8 TSH Cancelled Blood Type Antibody Screen Crossmatch Microbiology Microbiology Results: Microbiology 04/27/25 11:22 Blood Culture - Preliminary Blood - Venous No growth after 24 hours. 04/27/25 11:22 Blood Culture - Preliminary Blood - Venous No growth after 24 hours. Procedures Date of Service Date of Service: 04/29/25 Progress Note: A&P Assessment and plan (1) Abscess: Status: Acute Plan 65-year-old female patient well known to the surgical service with multiple medical problems, on oral anticoagulation for paroxysmal atrial fibrillation admitted for infected hematoma the abdominal wall in the LUQ/mid abdomen. Site continues to drain spontaneously purulent/old bloody drainage. Continue daily and PRN dressing changes. Cont IV abx. She c/o nausea and vomiting, her cholecystostomy tube was clamped yesterday. This was unclamped to see if it is contributing to her symptoms. She is tender in the RUQ/epigastric area- ?recurrent pancreatitis. Lipase added on. Further measures as per ICU team. We will continue to follow. Time Spent With Patient Time: Total time managing care of this patient today ____ minutes. Quality Stroke Does the patient have a stroke diagnosis?: No VTE Prior VTE?: No VTE Risk Level:: Medical - moderate - high VTE Device Contraindication: N/A - Device Ordered VTE Drug Contraindication: Treatment Not Tolerated
[2025-04-29 08:36] LABS: Lipase 77 U/L (8-78)
--- NOTE | 2025-04-29 10:07 | PM.CNCAR ---
History of Present Illness History of Present Illness Date of Service: 04/29/25 Chief complaint: hemorrhagic shock Narrative: This is a cardiology consultation regarding palpitations and question of any arrhythmias. We see her as an outpatient but not in the last few months. She has got many surgical issues and has been in and out of the hospital numerous times. She has a history of stress-induced cardiomyopathy and a prior cardiac catheterization had shown no significant disease. Due to low blood pressure issues, we could not really maintain any guideline based medical therapy. Last time we saw her few months back, she was weak but otherwise okay without any acute cardiac symptoms. Otherwise, she also has PVCs which were not of any concern at that time. Otherwise, she has had many hospitalizations since I last saw her. In January of this year, it appears that she was diagnosed with atrial flutter which happened in the setting of abdominal abscess and sepsis. She had an echocardiogram then that showed moderate pericardial effusion. At that point, she was put on amiodarone and then also put on Eliquis. Currently, she is concerned that she is frequently noticing palpitations during the ICU stay. However, telemetry just shows sinus rhythm with some PVCs but nothing of major concern otherwise. She is admitted for hemorrhagic shock thought to be from bleeding from fistulous track. Per notes, Kcentra was given to reverse Eliquis. She is denying any other complaints like chest pains or shortness of breath. Review of Systems Review of Systems: Yes all other systems are reviewed and are negative Constitutional: Constitutional: Reports as per HPI and Reports no additional constitutional complaints Eyes: Eyes: Reports as per HPI and Denies no additional eye complaints ENT: Denies system reviewed and no additional complaints, except as documented and Reports as per HPI Cardiovascular: Cardiovascular: Reports as per HPI, Reports no additional cardiovascular complaints, Denies acrocyanosis, Denies cool extremities, Denies chest pain, Denies leg edema, Denies lightheadedness, Reports palpitations and Denies dyspnea Respiratory: Respiratory: Reports as per HPI, Denies no additional respiratory complaints and Denies dyspnea Gastrointestinal: Gastrointestinal: Reports as per HPI and Denies no additional gastrointestinal complaints Genitourinary: Genitourinary: Reports as per HPI Musculoskeletal: Musculoskeletal: Reports no additional musculoskeletal complaints and Reports as per HPI Integumentary/Breasts: Skin/Breast: Reports system reviewed and no additional complaints, except as docu Neurologic: Reports system reviewed and no additional complaints, except as documented and Reports as per HPI Psychiatric: Psychiatric: Reports no additional psychiatric complaints and Reports as per HPI Endocrine: Endocrine: Reports no additional endocrine complaints, Reports as per HPI and Reports palpitations Hematologic/Lymphatic: Hematologic/Lymphatic: Reports no additional hematologic/lymphatic complaints and Reports as per HPI Allergic/Immunologic: Allergic/Immunologic: Reports no additional allergic/immunologic complaints and Reports as per HPI [facility] Past Medical History Medical History (Updated 04/29/25 @ 10:12 by Lupillo Sinclair MD) Atrial flutter History of sigmoidoscopy Multinodular thyroid Chronic vomiting Hypocalcemia Iron deficiency anemia Hyponatremia Hypomagnesemia Acute cholecystitis CAD (coronary artery disease) History of acute cholecystitis History of pancreatitis Pancreatitis Insomnia Bilateral knee pain Polyarthralgia MARKIE (acute kidney injury) Back pain Arthritis History of transfusion of packed red blood cells Anemia Cardiomyopathy MARKIE (acute kidney injury) MARKIE (acute kidney injury) Anxiety Small bowel obstruction Myocardial infarction NSTEMI (non-ST elevated myocardial infarction) NSVT (nonsustained ventricular tachycardia) PVC (premature ventricular contraction) Hypertension Perforated diverticulum Irritable bowel syndrome with constipation Barretts esophagus GERD (gastroesophageal reflux disease) Family History Family History Father Colon cancer Congestive heart failure Paternal Aunt Colon cancer Mother Congestive heart failure Afib Surgical History Surgical History History of insertion of tunneled central venous catheter (CVC) with port H/O insertion of cholecystostomy tube Status post embolization of uterine artery S/P colon resection PIC line (peripherally inserted central catheter) removal History of low anterior resection of rectum Status post cardiac catheterization Ileostomy in place H/O dilation and curettage History of exploratory laparotomy (05/11/23) S/P colostomy Colovesical fistula History of esophagogastroduodenoscopy (EGD) Hx of colonoscopy Social History Social History Household Members: None Housing: House Are you a primary home care administrator to a significant other at home: No Do you presently have visiting nurse or other home services: Yes Unable to assess alcohol history related to: Unknown Alcohol intake: never Comment: pt declined alarms; intermittently assistance Patient Tobacco Use Status: Former Tobacco user Tobacco use type: Cigarette Cigarette Packs Per Day: 0.5 Cigarettes Per Day: 10.0 Years Smoked: 25 e-Cigarette/Vaping Use: Former Use Second Hand Smoke Exposure: No Substance Use Type: Marijuana Currently Displaying Signs/Symptoms of Drug Intoxication Withdrawal: No Have you been hit, kicked, punched, or otherwise hurt by someone within the past year? If so, by whom?: No Do you feel safe in your current relationship?: Yes Is there a partner from a previous relationship who is making you feel unsafe now?: No Are you made to feel afraid or neglected: No Advance Directives: Yes Advance Directives on File: Yes Advance Directives Date on File: 12/29/23 Do you have a plan to hurt others: No Plan Recently lost weight without trying: Yes How much weight loss: 24-33 pounds Eating poorly because of decreased appetite: Yes Nutrition screen score: 6 Nutrition Risks: Poor intake 0-25% >4 days Patient : No : No service: No Cognitive needs: No Hearing needs: No Vision needs: Yes Meds Allergies Allergy/AdvReac Type Severity Reaction Status Date / Time clams Allergy Severe Stomach Verified 04/27/25 10:39 Upset clavulanic acid (Augmentin) Allergy Unknown GI, Verified 04/27/25 10:39 Difficulty breathing codeine (CODEINE) Allergy Unknown SENSITIVIT Verified 04/27/25 10:39 Y erythromycin base Allergy Unknown GI, DIFF Verified 04/27/25 10:39 (Erythromycin Base) BREATHING Sulfa (Sulfonamide Allergy Unknown RASH Verified 04/27/25 10:39 Antibiotics) morphine (MORPHINE) AdvReac Severe Difficulty Verified 04/27/25 10:39 Breathing aspirin (Aspirin) AdvReac Mild STOMACH Verified 04/27/25 10:39 UPSET melatonin AdvReac Vomiting Verified 04/27/25 10:39 Active Medications: Current Medications Calcium Carbonate (Calcium Carbonate 750 Mg Tab.Chew) 750 mg PO Q4H PRN PRN Reason: Heartburn Last Admin: 04/29/25 04:52 Dose: 750 mg Hydromorphone HCl (Hydromorphone Hcl 1 Mg/Ml Syringe) 1 mg IVPUSH Q4H PRN; Protocol PRN Reason: Pain, Severe (Pain Scale 7-10) Last Admin: 04/29/25 01:16 Dose: 1 mg Norepinephrine Bitartrate (Levophed) 8 mg in 250 mls @ 0 mls/hr IV .Q0M [facility]; Protocol Last Titration: 04/29/25 02:11 Dose: 0.07 mcg/kg/min, 6.96 mls/hr Piperacillin Sod/Tazobactam (Sod 3.375 gm/ Sodium Chloride) 50 mls @ 100 mls/hr IV Q6H [facility] Last Infusion: 04/29/25 05:50 Dose: Infused Linezolid (Zyvox/D5w) 600 mg in 300 mls @ 300 mls/hr IV Q12H [facility] Last Infusion: 04/29/25 05:46 Dose: Infused Calcium Gluconate (Calcium Gluconate) 1 gm in 50 mls @ 50 mls/hr IV ONCE ONE Stop: 04/29/25 10:54 Lidocaine (Lidocaine 4 % Patch Adh..Patch) 1 patch TRANSDERMA DAILY [facility]; Protocol Last Admin: 04/28/25 09:11 Dose: Not Given Ondansetron HCl (Ondansetron Hcl 4 Mg/2 Ml Vial) 4 mg IVPUSH Q8H PRN PRN Reason: Nausea and Vomiting Last Admin: 04/29/25 01:21 Dose: 4 mg Pantoprazole Sodium (Pantoprazole Sodium 40 Mg/10 Ml Vial) 40 mg IVPUSH DAILY@0630 [facility] Last Admin: 04/29/25 05:17 Dose: 40 mg Home Medications ?Medication ?Instructions ?Recorded ?Confirmed ?Last Taken ?Type mirtazapine 15 mg tablet 15 mg PO BEDTIME 11/30/23 04/27/25 03/30/25 History multivitamin with minerals-folic 1 tab PO DAILY 01/07/24 04/27/25 04/27/25 History acid 200 mcg chewable tablet (Multivitamin Gummies) amiodarone 200 mg tablet 200 mg PO DAILY 02/19/25 04/27/25 04/27/25 History apixaban 5 mg tablet (Eliquis) 5 mg PO BID 02/19/25 04/27/25 04/27/25 History colchicine 0.6 mg tablet 0.3 mg PO DAILY 02/19/25 04/27/25 04/27/25 History esomeprazole magnesium 20 mg 20 mg PO DAILY@30 02/19/25 04/27/25 04/27/25 History capsule,delayed release (Nexium) cyanocobalamin (vitamin B-12) 1,000 mcg PO DAILY 03/31/25 04/27/25 04/27/25 History 1,000 mcg tablet (Vitamin B-12) magnesium oxide 400 mg PO BID 04/25/25 04/27/25 04/27/25 History potassium chloride 10 mEq 10 meq PO BID 04/25/25 04/27/25 04/27/25 History capsule,extended release Physical Exam Vital Signs: Vital Signs: Last Vital Signs Temp 98.6 F 04/29/25 08:00 Pulse 79 04/29/25 09:00 Resp 18 04/29/25 09:00 BP 119/76 04/29/25 09:00 Pulse Ox 98 04/29/25 09:00 O2 Del Method Room Air 04/29/25 09:00 BMI result Body Mass Index 25.9 Const: General: comfortable and no acute distress Orientation/consciousness: patient oriented x3 HEENT: Other: Unremarkable Head: Yes normal to inspection Neck: Neck: Yes normal visual inspection Chest: Chest palpation & inspection: normal inspection of the chest Resp: Auscultation: clear to auscultation bilaterally Cardio: Palpation: normal PMI Heart sounds: S1 normal heart sound present, S2 normal heart sound present, no gallops, no murmurs and no rubs GI: Palpation (GI): Soft to palpation Back/Spine/Pelvis: Other: unremarkable Skin: General skin exam: no rashes or lesions noted Neuro: General: patient oriented x3 Extrem: General: Yes normal to inspection Psych: Mental Status: mental status grossly normal Objective Labs and Meds 04/29/25 05:15 04/29/25 05:15 Lab results: Laboratory Results - last 24 hr 04/27/25 04/28/25 04/28/25 13:53 12:53 16:06 WBC RBC Hgb Hct MCV MCH MCHC RDW Plt Count MPV Immature Gran % (Auto) Neut % (Auto) Lymph % (Auto) Pike % (Auto) Eos % (Auto) Baso % (Auto) Lymph # (Auto) [place] # (Auto) Eos # (Auto) Baso # (Auto) Abs Immat Gran (auto) Absolute Neuts (auto) Absolute Nucleated RBC Nucleated RBC % (auto) Sodium 135 135 Potassium 3.7 3.8 Chloride 103 102 Carbon Dioxide 23 23 Anion Gap 13 14 BUN 17 H 16 Creatinine 1.55 H 1.52 H Estim Creat Clear Calc 31.4 32.0 Estimated GFR 33 34 Random Glucose 98 114 Calcium 7.4 L 8.3 L D Phosphorus 2.3 L 2.4 L Magnesium 1.7 2.3 Troponin I High Sens 20.7 H D 25.3 H Lipase TSH 3.60 Blood Type O Positive Antibody Screen NEGATIVE Crossmatch See Detail 04/28/25 04/28/25 04/29/25 16:06 17:34 05:15 WBC 13.7 H 14.6 H RBC 2.89 L 3.09 L Hgb 8.5 L 9.1 L Hct 25.6 L 27.2 L MCV 88.6 88.0 MCH 29.4 29.4 MCHC 33.2 33.5 RDW 15.9 16.0 Plt Count 195 222 MPV 9.1 L 9.1 L Immature Gran % (Auto) 0.9 H 0.8 H Neut % (Auto) 81.1 H 80.9 H Lymph % (Auto) 8.7 L 9.2 L Pike % (Auto) 6.8 6.2 Eos % (Auto) 2.0 2.4 Baso % (Auto) 0.5 0.5 Lymph # (Auto) 1.2 1.3 Pike # (Auto) 0.9 0.9 Eos # (Auto) 0.3 0.4 Baso # (Auto) 0.1 0.1 Abs Immat Gran (auto) 0.12 H 0.12 H Absolute Neuts (auto) 11.1 H 11.8 H Absolute Nucleated RBC 0.000 0.000 Nucleated RBC % (auto) 0.0 0.0 Sodium 133 L Potassium 3.4 Chloride 103 Carbon Dioxide 19 L Anion Gap 14 BUN 12 Creatinine 1.30 Estim Creat Clear Calc 37.4 Estimated GFR 41 Random Glucose 136 H Calcium 7.5 L D Phosphorus 4.2 Magnesium 1.8 Troponin I High Sens Lipase 77 TSH Cancelled Blood Type Antibody Screen Crossmatch ECG Interpretation: EKG with underlying sinus rhythm at 71/Min; low-voltage complexes and nonspecific ST-T findings. Normal KS. Corrected QT is slightly prolonged at 486 milliseconds. Assessment and Plan (1) Hemorrhagic shock: Status: Acute (2) Stress-induced cardiomyopathy: Status: Acute (3) Atrial flutter: Status: Acute (4) PVC (premature ventricular contraction): Status: Acute Plan Admitted treated as hemorrhagic shock. On telemetry, sinus rhythm with some PVCs. Echocardiogram from January with LVEF of 60-65%. Moderate pericardial effusion. Home medications include amiodarone, Eliquis. Not clear why she is on colchicine as well. We can keep her on amiodarone to prevent any recurrent episodes of atrial flutter why she is acutely ill. However, off Eliquis for now because of the bleeding issue. We will repeat her echocardiogram to ensure there is no worsening of for pericardial effusion. Discussed with staff counsel. Procedures Date of Service Date of Service: 04/29/25
--- NOTE | 2025-04-29 10:09 | P.PNCC_ITS ---
Subjective Subjective Date of Service: 04/29/25 Interval History: no significant overnight events; persistent vasopressor requirement Critical Care Time (minutes): 60 Physical Exam 2 Vital Signs: Vital Signs: Last Vital Signs Temp 98.6 F 04/29/25 08:00 Pulse 79 04/29/25 09:00 Resp 18 04/29/25 09:00 BP 119/76 04/29/25 09:00 Pulse Ox 98 04/29/25 09:00 O2 Del Method Room Air 04/29/25 09:00 BMI result Body Mass Index 25.9 Const: General: cooperative, healthy appearing, comfortable, no acute distress, well developed, alert, awake and Physically active O rientation/consciousness: patient oriented x3 HEENT: Head: Yes normal to inspection, Yes normocephalic and Yes atraumatic Eyes: General: appearance normal, both eyes and all related structures Neck: Neck: Yes normal visual inspection, Yes full ROM, Yes no meningeal signs, Yes trachea midline and Yes supple Chest: Chest palpation & inspection: normal inspection of the chest Resp: Other: no appreciable overt rales, rhonchi, wheezing Effort & Inspection: normal respiratory effort Cardio: Rate: regular rate Rhythm: regular rhythm GI: Other: appreciable midline bandage, clean, dry, intact; appreciable ileostomy bag w/o surrounding erythema, edema; some appreciable tenderness w/ palpation Inspection: No Abdominal wall edema and No distended Palpation (GI): S oft to palpation and not firm Skin: General skin exam: no rashes or lesions noted Neuro: General: patient oriented x3, tone normal, moves all extremities, no meningeal signs and no focal motor deficits Extrem: General: Yes normal to inspection, Yes full ROM, Yes capillary refill normal and Yes no clubbing, cyanosis or edema Psych: Appearance: grossly normal Objective Data Labs 04/29/25 05:15 04/29/25 05:15 Labs: Laboratory Results - last 24 hr 04/27/25 04/28/25 04/28/25 13:53 12:53 16:06 WBC RBC Hgb Hct MCV MCH MCHC RDW Plt Count MPV Immature Gran % (Auto) Neut % (Auto) Lymph % (Auto) [place] % (Auto) Eos % (Auto) Baso % (Auto) Lymph # (Auto) [place] # (Auto) Eos # (Auto) Baso # (Auto) Abs Immat Gran (auto) Absolute Neuts (auto) Absolute Nucleated RBC Nucleated RBC % (auto) Sodium 135 135 Potassium 3.7 3.8 Chloride 103 102 Carbon Dioxide 23 23 Anion Gap 13 14 BUN 17 H 16 Creatinine 1.55 H 1.52 H Estim Creat Clear Calc 31.4 32.0 Estimated GFR 33 34 Random Glucose 98 114 Calcium 7.4 L 8.3 L D Phosphorus 2.3 L 2.4 L Magnesium 1.7 2.3 Troponin I High Sens 20.7 H D 25.3 H Lipase TSH 3.60 Blood Type O Positive Antibody Screen NEGATIVE Crossmatch See Detail 04/28/25 04/28/25 04/29/25 16:06 17:34 05:15 WBC 13.7 H 14.6 H RBC 2.89 L 3.09 L Hgb 8.5 L 9.1 L Hct 25.6 L 27.2 L MCV 88.6 88.0 MCH 29.4 29.4 MCHC 33.2 33.5 RDW 15.9 16.0 Plt Count 195 222 MPV 9.1 L 9.1 L Immature Gran % (Auto) 0.9 H 0.8 H Neut % (Auto) 81.1 H 80.9 H Lymph % (Auto) 8.7 L 9.2 L [place] % (Auto) 6.8 6.2 Eos % (Auto) 2.0 2.4 Baso % (Auto) 0.5 0.5 Lymph # (Auto) 1.2 1.3 [place] # (Auto) 0.9 0.9 Eos # (Auto) 0.3 0.4 Baso # (Auto) 0.1 0.1 Abs Immat Gran (auto) 0.12 H 0.12 H Absolute Neuts (auto) 11.1 H 11.8 H Absolute Nucleated RBC 0.000 0.000 Nucleated RBC % (auto) 0.0 0.0 Sodium 133 L Potassium 3.4 Chloride 103 Carbon Dioxide 19 L Anion Gap 14 BUN 12 Creatinine 1.30 Estim Creat Clear Calc 37.4 Estimated GFR 41 Random Glucose 136 H Calcium 7.5 L D Phosphorus 4.2 Magnesium 1.8 Troponin I High Sens Lipase 77 TSH Cancelled Blood Type Antibody Screen Crossmatch Microbiology Microbiology Results: Microbiology 04/27/25 11:22 Blood - Venous Blood Culture - Preliminary No growth after 24 hours. 04/27/25 11:22 Blood - Venous Blood Culture - Preliminary No growth after 24 hours. Progress Note: A&P Assessment and plan (1) Hematoma: Status: Resolved (2) Hypotension: Status: Resolved Plan Patient is a 65 Y F w/ hypertension, hyperlipidemia, CAD, paroxysmal atrial fibrillation on apixaban, prior pancreatitis, diverticulitis c/b perforation s/p colectomy, c/b intra-abdominal 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,?presenting to ED on 04/27 w/ bloody drainage from fistula found to be hypotensive, c/f hemorrhagic shock N: no acute issues CV: c/f hemorrhagic shock, s/p 1 pRBC and K-Centra on 04/27, to monitor closely; CAD, paroxysmal atrial fibrillation, to hold home apixaban in setting of hemorrhage; follow-up echo 04/29; appreciate cardiology recommendations R: no acute issues GI: prior diverticulitis c/b perforation s/p colectomy, c/b intra-abdominal 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, presenting w/ bloody drainage c/f infected hematoma, appreciate general surgery recommendations : acute renal insufficiency, to monitor renal indices H: hemorrhage c/b acute blood loss anemia, to monitor, transfuse as needed; given hemorrhage, to avoid chemical DVT prophylaxis, mechanical devices ID: given hypotension, empiric zosyn/zyvox; to follow-up infectious work-up E: to monitor hyper-/hypo-glycemia S: of note, patient prefers to defer daily updates w/ daughter/HCP unless medically necessary Quality Stroke Does the patient have a stroke diagnosis?: No VTE Prior VTE?: No VTE Risk Level:: Medical - moderate - high VTE Device Contraindication: N/A - Device Ordered VTE Drug Contraindication: Treatment Not Tolerated
[2025-04-29] MEDS: Calcium Gluconate/NaCl,Iso-Osm 1 GM/50 ML PLAST..BAG IV (10:33)
--- NOTE | 2025-04-29 12:00 | CA_ITS ---
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 The calculated ejection fraction is 39% by biplane method. - The inferoseptal wall, the basal inferior, mid inferior, and basal anteroseptal segments are akinetic. - No obvious valvular pathology seen on this study. Findings Procedure Information Contrast agent, definity, is being given per protocol without apparent complications. Left Ventricle Normal left ventricular cavity size. There is normal left ventricular wall thickness. The left ventricular systolic function is moderately decreased. The calculated ejection fraction is 39% by biplane method. There is evidence of regional wall motion abnormalities. Diastolic function is normal for age. Wall Motion Rest Echo Findings The inferoseptal wall, the basal inferior, mid inferior, and basal anteroseptal segments are akinetic. Right Ventricle Normal right ventricular cavity size and systolic function. Atria The left atrium is moderately dilated. The right atrium is normal in size. Aortic Valve There is a normal trileaflet aortic valve. There is no aortic valve stenosis. There is no aortic valve regurgitation. Mitral Valve The mitral valve appears normal. There is trace mitral valve regurgitation. There is no mitral valve stenosis. Pulmonic Valve The pulmonic valve is likely normal. Tricuspid Valve There is mild tricuspid valve regurgitation. Borderline RVSP. Great Vessels The asc aorta is normal in size. Venous The inferior vena cava is normal in size and collapses greater than 50% with inspiration. Pericardium/Pleural There is no evidence of pericardial effusion. Prior Study Comparison Changes noted compared to prior study dated: 01/22/2025. Reduced LVEF: see comment on wall motion abnormalities. Consider recurrent stress induced cardiomyopathy. Recommendations, Care & Conclusions No obvious valvular pathology seen on this study. Measurements 2D Linear Measurements IVSd: 0.86 0.6-0.9/0.6-1.0 cm LVIDd: 4.74 3.9-5.3/4.2-5.9 cm LVIDd Index: 2.87 2.4-3.2/2.2-3.1 cm/m2 LVIDs: 3.33 2.0-3.6 cm LVPWd: 0.89 0.7-1.1 cm LA Diam: 3.10 2.7-3.8/3.0-4.0 cm LAIDs Index: 1.88 1.5-2.3 cm/m2 LV Mass: 173.01 67-162/88-224 g LV Mass Index: 104.86 43-95/49-115 g/m2 LVOT Diam: 1.90 3.0+(-)1.3 cm 2D Systolic Function EF 4C: 39.60 >55% EF 2C: 38.20 >55% EF BiP: 38.70 >55% Mitral Valve MV Pk E: 0.64 MV PK A: 0.53 MV Decel Time: 169.00 E/A: 1.20 E'Lateral: 11.60 E'Medial: 5.55 E/E' Med: 11.50 E/E' Lat: 5.50 PHT: 50.00 MVA PHT: 4.40 Decel Cuming: 3.78 Aortic Valve AoV Pk Lan: 1.12 AoV Mn Lan: 0.73 AoV VTI: 0.22 AoV Pk Grad: 5.00 Aov Mn Grad: 3.00 MIGUELANGEL Cont.VTI: 1.98 LVOT LVOT Pk Lan: 0.76 LVOT Mn Lan: 0.49 LVOT VTI: 0.16 LVOT Pk Grad: 2.00 LVOT Mn Grad: 1.00 LVOT Diam: 1.90 LVOT Area: 2.84 Diastolic Function MV Pk E: 0.64 MV Pk A: 0.53 E/A: 1.20 E'Medial: 5.55 E/E' Med: 11.50 E' Laterial: 11.60 E/E' Lat: 5.50 Right Ventricle TAPSE (mm): 20.70 Tricuspid Valve TR Pk Lan: 2.90 TR Pk Grad: 34.00 RA Press: 3.00 RVSP: 37.00 Great Vessels Aorta Sinus of Valsalva: 3.40 2.0-3.5 cm Ao Asc: 3.50 2.1-3.4 cm Pulmonary Valve PV Pk Lan: 0.72 Peak PV Grad: 2.00 Updated in Other Vendor System with Status of Final Lupillo Sinclair MD electronically signed on 04/29/2025 3:22:16 PM with status of Final
--- NOTE | 2025-04-29 12:51 | MHC.CM.PN ---
Pt continues on pressors in ICU: plans to try and titrate off in anticipation of d/c to the floor. CM to follow
--- NOTE | 2025-04-29 15:34 | PC.NURSE ---
Assumed care of patient 0700. New orders for Calcium gluconate 1G IV given per MD. Levophed gtt required @0.07 mcg/kg/min. No change in rate due to protocol, MAP goal >65. Per MD, 1 unit Thawed Plasma transfused per TAR orders. Patient A+Ox4, up out of bed to commode intermittently to void. Patient declines recliner chair this shift but ambulates every 2-3 hours to commode. Patient remains SR on telemetry with occasional PVCs. States nausea, no episodes of vomiting. Cardiology consult to bedside approx 09:30AM. Echo completed at bedside approx 11:00AM. General Surgery PA to bedside approx 08:30AM. Cholesystostomy MIKI drain had been clamped 04/28/25. PA unclamped MIKI drain to assess if this relieves nausea and vomiting (previous shift) symptoms. Mid abdominal dressing changed by PA. Approx 10:00AM, patient's ileostomy bag leaking. Appliance and bag changed by patient with some RN assistance. Dressings changed to midline abdomen and around MIKI drain site due to soiling. Area cleansed and new guaze and abd dressings applied. Patient remains with poor PO intake with regular diet ordered. Patient ate 2 saltine crackers this shift, drinks water intermittently. Patient states nausea is mostly resolved at this time in afternoon ~15:30.
[2025-04-29 18:32] LABS: MANUAL DIFF FLAG NO
[2025-04-29 18:37] LABS: Hematocrit 28.0 % (37.0-47.0); Hemoglobin 9.1 g/dl (12.0-16.0); Imm Gran Abs Auto 0.13 X10*3/uL (0.00-0.03); Imm Gran Pct Auto 0.9 % (0.0-0.4); Lymphocytes Absolute Auto 2.1 X10*3/uL (1.2-4.9); Mean Corpuscular HGB Conc 32.5 g/dl (31.0-35.0); Mean Corpuscular Hemoglobin 28.7 pg (27.0-33.0); Mean Corpuscular Volume 88.3 fL (80.0-98.0); NRBC Abs Auto 0.000 X10*3/uL (0.0-0.012); NRBC Pct Auto 0.0 /100WBC (0.0-0.2); Platelet Count 217 X10*3/uL (160-400); Red Blood Count 3.17 X10*6/uL (4.20-5.50); White Blood Count 14.5 X10*3/uL (4.8-10.8)
[2025-04-29 18:54] LABS: Anion Gap 13 (12-20); Blood Urea Nitrogen 9 mg/dL (9-16); Calcium 7.8 mg/dL (8.4-10.2); Carbon Dioxide 23 mmol/L (22-29); Chloride 101 mmol/L (96-108); Creatinine Clr Calc Pharmacy 40.9; Estimated Glomerular Filt Rate 45; Magnesium 1.6 mg/dL (1.6-2.6); Potassium 3.4 mmol/L (3.3-5.1); Sodium 134 mmol/L (135-145)
[2025-04-30] VITALS (31 sets, daily range): BP systolic 86–140; BP diastolic 50–89; PULSE 68–115; RESP 9–20; TEMP 36.1–36.6; O2SAT 92–100; BMI 25.6
[2025-04-30] MEDS: Linezolid/D5W 600 MG/300 ML PIGGYBACK 300 MG IV ×2 (04:01→16:58)
[2025-04-30 06:08] LABS: MANUAL DIFF FLAG NO
[2025-04-30 06:14] LABS: Hematocrit 28.5 % (37.0-47.0); Hemoglobin 9.4 g/dl (12.0-16.0); Imm Gran Abs Auto 0.07 X10*3/uL (0.00-0.03); Imm Gran Pct Auto 0.5 % (0.0-0.4); Lymphocytes Absolute Auto 2.5 X10*3/uL (1.2-4.9); Mean Corpuscular HGB Conc 33.0 g/dl (31.0-35.0); Mean Corpuscular Hemoglobin 29.0 pg (27.0-33.0); Mean Corpuscular Volume 88.0 fL (80.0-98.0); NRBC Abs Auto 0.000 X10*3/uL (0.0-0.012); NRBC Pct Auto 0.0 /100WBC (0.0-0.2); Platelet Count 197 X10*3/uL (160-400); Red Blood Count 3.24 X10*6/uL (4.20-5.50); White Blood Count 13.9 X10*3/uL (4.8-10.8)
[2025-04-30 06:25] LABS: Albumin Level 2.5 g/dL (3.5-5.0)
[2025-04-30 06:31] LABS: Anion Gap 11 (12-20); Blood Urea Nitrogen 8 mg/dL (9-16); Calcium 7.5 mg/dL (8.4-10.2); Carbon Dioxide 23 mmol/L (22-29); Chloride 100 mmol/L (96-108); Creatinine Clr Calc Pharmacy 47.0; Estimated Glomerular Filt Rate 54; Magnesium 1.5 mg/dL (1.6-2.6); Potassium 3.0 mmol/L (3.3-5.1); Sodium 131 mmol/L (135-145)
--- NOTE | 2025-04-30 08:00 | ECG_ITS ---
Test Reason : ck rhythm Blood Pressure : */* mmHG Vent. Rate : 84 BPM Atrial Rate : 84 BPM P-R Int : 146 ms QRS Dur : 80 ms QT Int : 354 ms P-R-T Axes : 50 5 -84 degrees QTcB Int : 418 ms Normal sinus rhythm Low voltage QRS Nonspecific ST and T wave abnormality Abnormal ECG When compared with ECG of 28-Apr-2025 13:02, Nonspecific T wave abnormality now evident in Anterolateral leads QT has shortened Referred By: Etta Garcia Electronically Signed By: TERELL PATEL
--- NOTE | 2025-04-30 09:09 | P.PNCC_ITS ---
Subjective Subjective Date of Service: 04/30/25 Interval History: no significant overnight events Critical Care Time (minutes): 60 Physical Exam 2 Vital Signs: Vital Signs: Last Vital Signs Temp 97.6 F 04/30/25 09:00 Pulse 81 04/30/25 09:00 Resp 9 L 04/30/25 09:00 BP 105/63 04/30/25 09:00 Pulse Ox 98 04/30/25 09:00 O2 Del Method Room Air 04/30/25 09:00 BMI result Body Mass Index 25.6 Const: General: cooperative, healthy appearing, comfortable, no acute distress, well developed, alert, awake and Physically active O rientation/consciousness: patient oriented x3 HEENT: Head: Yes normal to inspection, Yes normocephalic and Yes atraumatic Eyes: General: appearance normal, both eyes and all related structures Neck: Neck: Yes normal visual inspection, Yes full ROM, Yes no meningeal signs, Yes trachea midline and Yes supple Chest: Chest palpation & inspection: normal inspection of the chest Resp: Other: no appreciable rales, rhonchi, wheezing Cardio: Rate: regular rate Rhythm: regular rhythm GI: Other: fistula w/ minimal drainage w/o significant surrounding erythema, edema, fluctuance; colostomy bag clean, dry, intact Skin: General skin exam: no rashes or lesions noted Neuro: General: patient oriented x3, tone normal, moves all extremities, no meningeal signs and no focal motor deficits Extrem: General: Yes normal to inspection, Yes full ROM, Yes capillary refill normal and Yes no clubbing, cyanosis or edema Psych: Appearance: grossly normal Objective Data Labs 04/30/25 05:42 04/30/25 05:42 Labs: Laboratory Results - last 24 hr 04/27/25 04/29/25 04/30/25 13:53 18:17 05:42 WBC 14.5 H 13.9 H RBC 3.17 L 3.24 L Hgb 9.1 L 9.4 L Hct 28.0 L 28.5 L MCV 88.3 88.0 MCH 28.7 29.0 MCHC 32.5 33.0 RDW 15.7 15.7 Plt Count 217 197 MPV 9.2 L 8.8 L Immature Gran % (Auto) 0.9 H 0.5 H Neut % (Auto) 75.7 H 71.3 Lymph % (Auto) 14.7 L 17.8 L [place] % (Auto) 5.9 6.7 Eos % (Auto) 2.1 3.0 Baso % (Auto) 0.7 0.7 Lymph # (Auto) 2.1 2.5 [place] # (Auto) 0.9 0.9 Eos # (Auto) 0.3 0.4 Baso # (Auto) 0.1 0.1 Abs Immat Gran (auto) 0.13 H 0.07 H Absolute Neuts (auto) 11.0 H 9.9 H Absolute Nucleated RBC 0.000 0.000 Nucleated RBC % (auto) 0.0 0.0 Sodium 134 L 131 L Potassium 3.4 3.0 L Chloride 101 100 Carbon Dioxide 23 23 Anion Gap 13 11 L BUN 9 8 L Creatinine 1.19 1.03 Estim Creat Clear Calc 40.9 47.0 Estimated GFR 45 54 Random Glucose 107 93 Calcium 7.8 L 7.5 L Phosphorus 2.7 2.0 L Magnesium 1.6 1.5 L Albumin 2.5 L Blood Type O Positive Antibody Screen NEGATIVE Crossmatch See Detail Microbiology Microbiology Results: Microbiology 04/27/25 11:22 Blood - Venous Blood Culture - Preliminary No growth after 48 hours. 04/27/25 11:22 Blood - Venous Blood Culture - Preliminary No growth after 48 hours. Progress Note: A&P Assessment and plan (1) Hypotension: Status: Acute (2) Abdominal wall fistula: Status: Acute Plan Patient is a 65 Y F w/ hypertension, hyperlipidemia, CAD, paroxysmal atrial fibrillation on apixaban, prior pancreatitis, diverticulitis c/b perforation s/p colectomy, c/b intra-abdominal 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,?presenting to ED on 04/27 w/ bloody drainage from fistula found to be hypotensive, c/f hemorrhagic shock N: no acute issues CV: c/f hemorrhagic shock, s/p 1 pRBC and K-Centra on 04/27, to monitor closely; CAD, paroxysmal atrial fibrillation, to hold home apixaban in setting of hemorrhage; echo 04/29 suggestive of stress-induced cardiomyopathy; appreciate cardiology recommendations R: no acute issues GI: prior diverticulitis c/b perforation s/p colectomy, c/b intra-abdominal 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, presenting w/ bloody drainage c/f infected hematoma, appreciate general surgery recommendations : acute renal insufficiency, improved; to monitor renal indices H: hemorrhage c/b acute blood loss anemia, to monitor, transfuse as needed; shared decision making, plan to start chemical DVT prophylaxis, mechanical devices ID: given hypotension, empiric zosyn/flagyl/zyvox; to follow-up abscess Cx 04/30 E: to monitor hyper-/hypo-glycemia S: of note, patient prefers to defer daily updates w/ daughter/HCP unless medically necessary Quality Stroke Does the patient have a stroke diagnosis?: No VTE Prior VTE?: No VTE Risk Level:: Medical - moderate - high VTE Device Contraindication: N/A - Device Ordered VTE Drug Contraindication: N/A - Med Ordered
--- NOTE | 2025-04-30 10:10 | P.PNGS_ITS ---
Subjective Subjective Date of Service: 04/30/25 Interval history: Asked by ICU to check on patient in view of persistent need for low-dose pressors She looks well overall She denies any new complaints She had good oral intake She has this periodic abdominal pain as baseline Her ileostomy is functioning well Physical Exam 2 Vital Signs: Vital Signs: Last Vital Signs Temp 97.6 F 04/30/25 09:00 Pulse 81 04/30/25 09:00 Resp 9 L 04/30/25 09:00 BP 105/63 04/30/25 09:00 Pulse Ox 98 04/30/25 09:00 O2 Del Method Room Air 04/30/25 09:00 BMI result Body Mass Index 25.6 Const: General: comfortable and no acute distress O rientation/consciousness: patient oriented x3 Resp: Effort & Inspection: normal respiratory effort Cardio: Rate: regular rate GI: Other: Ileostomy functioning well, small open wound on the upper part of the incision about 1 cm in diameter, scanty drainage Palpation (GI): Soft to palpation, not firm and no guarding Neuro: General: patient oriented x3 Objective Data Active Medications Calcium Carbonate (Calcium Carbonate 750 Mg Tab.Chew) 750 mg PO Q4H PRN PRN Reason: Heartburn Last Admin: 04/29/25 12:00 Dose: 750 mg Documented By: KASSY Heparin Sodium (Porcine) (Heparin Sodium,Porcine 5,000 Unit/Ml Vial) 5,000 unit SUBCUT Q8H [facility] Hydromorphone HCl (Hydromorphone Hcl 1 Mg/Ml Syringe) 1 mg IVPUSH Q4H PRN; Protocol PRN Reason: Pain, Severe (Pain Scale 7-10) Last Admin: 04/30/25 06:03 Dose: 1 mg Documented By: SOFIA Norepinephrine Bitartrate (Levophed) 8 mg in 250 mls @ 0 mls/hr IV .Q0M [facility]; Protocol Last Titration: 04/29/25 16:23 Dose: 0.05 mcg/kg/min, 4.97 mls/hr Documented By: KASSY Piperacillin Sod/Tazobactam (Sod 3.375 gm/ Sodium Chloride) 50 mls @ 100 mls/hr IV Q6H [facility] Last Infusion: 04/30/25 06:57 Dose: Infused Documented By: SOFIA Linezolid (Zyvox/D5w) 600 mg in 300 mls @ 300 mls/hr IV Q12H [facility] Last Infusion: 04/30/25 05:08 Dose: Infused Documented By: SOFIA Potassium Phosphate (Kphos) 15 mmol in 250 mls @ 62.5 mls/hr IV Q4H [facility] Stop: 04/30/25 17:14 Metronidazole (Flagyl) 500 mg in 100 mls @ 100 mls/hr IV Q8H [facility] Lidocaine (Lidocaine 4 % Patch Adh..Patch) 1 patch TRANSDERMA DAILY [facility]; Protocol Last Admin: 04/30/25 09:49 Dose: Not Given Documented By: LUIS Non-Admin Reason: per pt/refused Ondansetron HCl (Ondansetron Hcl 4 Mg/2 Ml Vial) 4 mg IVPUSH Q8H PRN PRN Reason: Nausea and Vomiting Last Admin: 04/29/25 01:21 Dose: 4 mg Documented By: EVA Pantoprazole Sodium (Pantoprazole Sodium 40 Mg/10 Ml Vial) 40 mg IVPUSH DAILY@0630 [facility] Last Admin: 04/30/25 06:15 Dose: 40 mg Documented By: SOFIA Labs 04/30/25 05:42 04/30/25 05:42 Labs: Laboratory Results - last 24 hr 04/27/25 04/29/25 04/30/25 13:53 18:17 05:42 MCV 88.3 88.0 MCH 28.7 29.0 MCHC 32.5 33.0 RDW 15.7 15.7 Plt Count 217 197 MPV 9.2 L 8.8 L Immature Gran % (Auto) 0.9 H 0.5 H Neut % (Auto) 75.7 H 71.3 Lymph % (Auto) 14.7 L 17.8 L [place] % (Auto) 5.9 6.7 Eos % (Auto) 2.1 3.0 Baso % (Auto) 0.7 0.7 Lymph # (Auto) 2.1 2.5 [place] # (Auto) 0.9 0.9 Eos # (Auto) 0.3 0.4 Baso # (Auto) 0.1 0.1 Abs Immat Gran (auto) 0.13 H 0.07 H Absolute Neuts (auto) 11.0 H 9.9 H Absolute Nucleated RBC 0.000 0.000 Nucleated RBC % (auto) 0.0 0.0 Anion Gap 13 11 L Estim Creat Clear Calc 40.9 47.0 Estimated GFR 45 54 Random Glucose 107 93 Calcium 7.8 L 7.5 L Phosphorus 2.7 2.0 L Magnesium 1.6 1.5 L Albumin 2.5 L Blood Type O Positive Antibody Screen NEGATIVE Crossmatch See Detail Microbiology Microbiology Results: Microbiology 04/27/25 11:22 Blood Culture - Preliminary Blood - Venous No growth after 48 hours. 04/27/25 11:22 Blood Culture - Preliminary Blood - Venous No growth after 48 hours. Procedures Date of Service Date of Service: 04/30/25 Progress Note: A&P Assessment and plan (1) Abscess: Status: Acute Assessment and Plan: She has this open wound likely from an infected hematoma on the upper part of her old incision. In view of her persistent need for low-dose pressors, I took cultures of this wound as discussed with the water tanker driver I reapplied dressings She looks well overall Abdomen remained soft and benign Cultures likely to show polymicrobial candelaira Time Spent With Patient Time: Total time managing care of this patient today ____ minutes. Quality Stroke Does the patient have a stroke diagnosis?: No VTE Prior VTE?: No VTE Risk Level:: Medical - moderate - high VTE Device Contraindication: N/A - Device Ordered VTE Drug Contraindication: N/A - Med Ordered
--- NOTE | 2025-04-30 10:15 | P.PNCA_ITS ---
Subjective Subjective Date of Service: 04/30/25 Interval history: Patient was seen and evaluated yesterday. History of stress-induced cardiomyopathy and now admitted mainly for GI issues. In this context, she is mentioned above palpitations but nothing overt on telemetry. Echocardiogram was performed and that shows new LV dysfunction. Suggestive of recurring stress- induced cardiomyopathy. We discussed about this today. Patient is upset that this happened but accepting the fact that she has quite ill with many issues. Still in ICU. Review of Systems Review of Systems Yes all other systems are reviewed and are negative Constitutional: Reports as per HPI and Reports no additional constitutional complaints Eyes: Reports as per HPI and Denies no additional eye complaints Denies system reviewed and no additional complaints, except as documented and Reports as per HPI Cardiovascular: Reports as per HPI, Reports no additional cardiovascular complaints, Denies acrocyanosis, Denies cool extremities, Denies chest pain, Denies leg edema, Denies lightheadedness, Denies palpitations and Denies dyspnea Respiratory: Reports as per HPI, Denies no additional respiratory complaints and Denies dyspnea Gastrointestinal: Reports as per HPI and Denies no additional gastrointestinal complaints Genitourinary: Reports as per HPI Musculoskeletal: Reports no additional musculoskeletal complaints and Reports as per HPI Skin/Breast: Reports system reviewed and no additional complaints, except as docu Reports system reviewed and no additional complaints, except as documented and Reports as per HPI Psychiatric: Reports no additional psychiatric complaints and Reports as per HPI Endocrine: Reports no additional endocrine complaints, Reports as per HPI and Denies palpitations Hematologic/Lymphatic: Reports no additional hematologic/lymphatic complaints and Reports as per HPI Allergic/Immunologic: Reports no additional allergic/immunologic complaints and Reports as per HPI Physical Exam Vital Signs: Last Vital Signs Temp 97.6 F 04/30/25 09:00 Pulse 81 04/30/25 09:00 Resp 9 L 04/30/25 09:00 BP 105/63 04/30/25 09:00 Pulse Ox 98 04/30/25 09:00 O2 Del Method Room Air 04/30/25 09:00 BMI result Body Mass Index 25.6 Const General: comfortable and no acute distress Orientation/consciousness: patient oriented x3 HEENT Other: Unremarkable Head: Yes normal to inspection Neck Neck: Yes normal visual inspection Chest Chest palpation & inspection: normal inspection of the chest Resp Auscultation: clear to auscultation bilaterally Cardio Palpation: normal PMI Heart sounds: S1 normal heart sound present, S2 normal heart sound present, no gallops, no murmurs and no rubs GI Palpation (GI): Soft to palpation Back/Spine/Pelvis Other: unremarkable Skin General skin exam: no rashes or lesions noted Neuro General: patient oriented x3 Extrem General: Yes normal to inspection Psych Mental Status: mental status grossly normal Objective Labs and Meds 04/30/25 05:42 04/30/25 05:42 Lab results: Laboratory Results - last 24 hr 04/27/25 04/29/25 04/30/25 13:53 18:17 05:42 WBC 14.5 H 13.9 H RBC 3.17 L 3.24 L Hgb 9.1 L 9.4 L Hct 28.0 L 28.5 L MCV 88.3 88.0 MCH 28.7 29.0 MCHC 32.5 33.0 RDW 15.7 15.7 Plt Count 217 197 MPV 9.2 L 8.8 L Immature Gran % (Auto) 0.9 H 0.5 H Neut % (Auto) 75.7 H 71.3 Lymph % (Auto) 14.7 L 17.8 L [place] % (Auto) 5.9 6.7 Eos % (Auto) 2.1 3.0 Baso % (Auto) 0.7 0.7 Lymph # (Auto) 2.1 2.5 [place] # (Auto) 0.9 0.9 Eos # (Auto) 0.3 0.4 Baso # (Auto) 0.1 0.1 Abs Immat Gran (auto) 0.13 H 0.07 H Absolute Neuts (auto) 11.0 H 9.9 H Absolute Nucleated RBC 0.000 0.000 Nucleated RBC % (auto) 0.0 0.0 Sodium 134 L 131 L Potassium 3.4 3.0 L Chloride 101 100 Carbon Dioxide 23 23 Anion Gap 13 11 L BUN 9 8 L Creatinine 1.19 1.03 Estim Creat Clear Calc 40.9 47.0 Estimated GFR 45 54 Random Glucose 107 93 Calcium 7.8 L 7.5 L Phosphorus 2.7 2.0 L Magnesium 1.6 1.5 L Albumin 2.5 L Blood Type O Positive Antibody Screen NEGATIVE Crossmatch See Detail Progress Note: A&P Assessment and plan (1) Stress-induced cardiomyopathy: Status: Acute (2) Hemorrhagic shock: Status: Acute (3) Atrial flutter: Status: Acute (4) PVC (premature ventricular contraction): Status: Acute Plan Cardiac studies reviewed. Telemetry with sinus rhythm/PVCs. In the echocardiogram, LVEF is 39% with wall motion abnormalities. Previously, cardiac catheterization was unremarkable. Overall, suspect recurring stress-induced cardiomyopathy related to acute medical issues. Her pressure is already low and hence probably will not be able tolerate beta- blockers. She was on Amiodarone at home, but not in her list currently. We will need to monitor for any atrial arrhythmias. Eliquis on hold because of bleeding concerns. We will need to address that at some point. Overall, reassured as much. Discussed with hand violin maker, . Time Spent With Patient Time: Total time managing care of this patient today ____ minutes. Progress Note: Quality Stroke Does the patient have a stroke diagnosis?: No Procedures Date of Service Date of Service: 04/30/25
[2025-04-30] MEDS: Albumin Human 25 % 50 ML 100 ML IV (10:47)
[2025-04-30] MEDS: metroNIDAZOLE/NS 500 MG/100 ML PIGGYBACK 100 MG IV ×2 (11:02→16:58)
[2025-04-30] MEDS: Potassium Phosphate/NS 15 MMOL/250 ML PLAST..BAG 62.5 MMOL IV ×2 (11:35→16:57)
[2025-04-30 18:29] LABS: MANUAL DIFF FLAG NO
[2025-04-30 18:32] LABS: Hematocrit 26.3 % (37.0-47.0); Hemoglobin 8.7 g/dl (12.0-16.0); Imm Gran Abs Auto 0.04 X10*3/uL (0.00-0.03); Imm Gran Pct Auto 0.4 % (0.0-0.4); Lymphocytes Absolute Auto 2.1 X10*3/uL (1.2-4.9); Mean Corpuscular HGB Conc 33.1 g/dl (31.0-35.0); Mean Corpuscular Hemoglobin 29.2 pg (27.0-33.0); Mean Corpuscular Volume 88.3 fL (80.0-98.0); NRBC Abs Auto 0.000 X10*3/uL (0.0-0.012); NRBC Pct Auto 0.0 /100WBC (0.0-0.2); Platelet Count 179 X10*3/uL (160-400); Red Blood Count 2.98 X10*6/uL (4.20-5.50); White Blood Count 10.1 X10*3/uL (4.8-10.8)
[2025-04-30 18:52] LABS: Anion Gap 12 (12-20); Blood Urea Nitrogen 7 mg/dL (9-16); Calcium 7.1 mg/dL (8.4-10.2); Carbon Dioxide 22 mmol/L (22-29); Chloride 100 mmol/L (96-108); Creatinine Clr Calc Pharmacy 48.5; Estimated Glomerular Filt Rate 55; Magnesium 1.7 mg/dL (1.6-2.6); Potassium 3.3 mmol/L (3.3-5.1); Sodium 131 mmol/L (135-145)
[2025-05-01] VITALS (31 sets, daily range): BP systolic 77–137; BP diastolic 42–75; PULSE 59–92; RESP 9–20; TEMP 36.4–37; O2SAT 94–100; BMI 26.7
[2025-05-01] MEDS: metroNIDAZOLE/NS 500 MG/100 ML PIGGYBACK 100 MG IV ×3 (00:14→17:01)
[2025-05-01] MEDS: Linezolid/D5W 600 MG/300 ML PIGGYBACK 300 MG IV ×2 (03:02→16:59)
[2025-05-01 06:13] LABS: Hematocrit 27.5 % (37.0-47.0); Hemoglobin 9.2 g/dl (12.0-16.0); Imm Gran Abs Auto 0.05 X10*3/uL (0.00-0.03); Imm Gran Pct Auto 0.4 % (0.0-0.4); Lymphocytes Absolute Auto 2.3 X10*3/uL (1.2-4.9); MANUAL DIFF FLAG NO; Mean Corpuscular HGB Conc 33.5 g/dl (31.0-35.0); Mean Corpuscular Hemoglobin 29.0 pg (27.0-33.0); Mean Corpuscular Volume 86.8 fL (80.0-98.0); NRBC Abs Auto 0.000 X10*3/uL (0.0-0.012); NRBC Pct Auto 0.0 /100WBC (0.0-0.2); Platelet Count 219 X10*3/uL (160-400); Red Blood Count 3.17 X10*6/uL (4.20-5.50); White Blood Count 13.0 X10*3/uL (4.8-10.8)
--- NOTE | 2025-05-01 06:23 | P.PNCC_ITS ---
Subjective Subjective Date of Service: 05/01/25 Interval History: persistent vasopressor needs Critical Care Time (minutes): 60 Physical Exam 2 Vital Signs: Vital Signs: Last Vital Signs Temp 98.2 F 05/01/25 04:00 Pulse 72 05/01/25 06:00 Resp 13 05/01/25 06:00 BP 101/61 05/01/25 06:00 Pulse Ox 98 05/01/25 06:00 O2 Del Method Room Air 05/01/25 06:00 BMI result Body Mass Index 26.7 Const: General: cooperative, healthy appearing, comfortable, no acute distress, well developed, alert, awake and Physically active O rientation/consciousness: patient oriented x3 HEENT: Head: Yes normal to inspection, Yes normocephalic and Yes atraumatic Eyes: General: appearance normal, both eyes and all related structures Neck: Neck: Yes normal visual inspection, Yes full ROM, Yes trachea midline and Yes supple Chest: Chest palpation & inspection: normal inspection of the chest Resp: Other: no appreciable rales, rhonchi, wheezing Effort & Inspection: normal respiratory effort Cardio: Rate: regular rate Rhythm: regular rhythm GI: Other: appreciable midline bandage w/ some appreciable yellow fluid; colostomy bag w/o surrounding erythema, edema; MIKI drain w/ green-brown fluid; some tenderness to palpation w/o guarding, rebound L and lower abdomen Inspection: No Abdominal wall edema and No distended Palpation (GI): S oft to palpation, not firm, nontender, no guarding and not rigid Skin: General skin exam: no rashes or lesions noted Neuro: General: patient oriented x3, tone normal, moves all extremities and no focal motor deficits Extrem: General: Yes normal to inspection, Yes full ROM, Yes capillary refill normal and Yes no clubbing, cyanosis or edema Psych: Appearance: grossly normal Objective Data Labs 05/01/25 06:08 05/01/25 06:08 Labs: Laboratory Results - last 24 hr 04/30/25 04/30/25 04/30/25 05:42 10:06 18:15 WBC 10.1 RBC 2.98 L Hgb 8.7 L Hct 26.3 L MCV 88.3 MCH 29.2 MCHC 33.1 RDW 15.7 Plt Count 179 MPV 9.5 Immature Gran % (Auto) 0.4 Neut % (Auto) 69.8 Lymph % (Auto) 20.4 [place] % (Auto) 6.3 Eos % (Auto) 2.5 Baso % (Auto) 0.6 Lymph # (Auto) 2.1 [place] # (Auto) 0.6 Eos # (Auto) 0.3 Baso # (Auto) 0.1 Abs Immat Gran (auto) 0.04 H Absolute Neuts (auto) 7.0 Absolute Nucleated RBC 0.000 Nucleated RBC % (auto) 0.0 Sodium 131 L 131 L Potassium 3.0 L 3.3 Chloride 100 100 Carbon Dioxide 23 22 Anion Gap 11 L 12 BUN 8 L 7 L Creatinine 1.03 1.00 Estim Creat Clear Calc 47.0 48.5 Estimated GFR 54 55 Random Glucose 93 120 H Lactic Acid 1.5 Calcium 7.5 L 7.1 L Phosphorus 2.0 L 3.6 Magnesium 1.5 L 1.7 Albumin 2.5 L Random Cortisol 7.0 05/01/25 06:08 WBC 13.0 H RBC 3.17 L Hgb 9.2 L Hct 27.5 L MCV 86.8 MCH 29.0 MCHC 33.5 RDW 15.7 Plt Count 219 MPV 9.2 L Immature Gran % (Auto) 0.4 Neut % (Auto) 70.5 Lymph % (Auto) 18.0 L [place] % (Auto) 6.9 Eos % (Auto) 3.5 Baso % (Auto) 0.7 Lymph # (Auto) 2.3 [place] # (Auto) 0.9 Eos # (Auto) 0.5 H Baso # (Auto) 0.1 Abs Immat Gran (auto) 0.05 H Absolute Neuts (auto) 9.2 H Absolute Nucleated RBC 0.000 Nucleated RBC % (auto) 0.0 Sodium Potassium Chloride Carbon Dioxide Anion Gap BUN Creatinine Estim Creat Clear Calc Estimated GFR Random Glucose Lactic Acid Calcium Phosphorus Magnesium Albumin Random Cortisol Microbiology Microbiology Results: Microbiology 04/30/25 Unknown Abdomen - Abdominal Gram Stain - Final 04/27/25 11:22 Blood - Venous Blood Culture - Preliminary No growth after 48 hours. 04/27/25 11:22 Blood - Venous Blood Culture - Preliminary No growth after 48 hours. Progress Note: A&P Assessment and plan (1) Hypotension: Status: Acute (2) Abdominal wall fistula: Status: Acute Plan Patient is a 65 Y F w/ hypertension, hyperlipidemia, CAD, paroxysmal atrial fibrillation on apixaban, prior pancreatitis, diverticulitis c/b perforation s/p colectomy, c/b intra-abdominal 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,?presenting to ED on 04/27 w/ bloody drainage from fistula found to be hypotensive, c/f hemorrhagic shock N: no acute issues CV: c/f hemorrhagic shock, s/p 1 pRBC and K-Centra on 04/27, to monitor closely; CAD, paroxysmal atrial fibrillation, to hold home apixaban in setting of hemorrhage; echo 04/29 suggestive of stress-induced cardiomyopathy; appreciate cardiology recommendations R: no acute issues GI: prior diverticulitis c/b perforation s/p colectomy, c/b intra-abdominal 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, presenting w/ bloody drainage c/f infected hematoma, appreciate general surgery recommendations : acute renal insufficiency, improved; to monitor renal indices H: hemorrhage c/b acute blood loss anemia, to monitor, transfuse as needed; shared decision making, chemical DVT prophylaxis, mechanical devices ID: given hypotension, empiric zosyn/flagyl/zyvox; to follow-up abscess Cx 04/30 E: to monitor hyper-/hypo-glycemia S: of note, patient prefers to defer daily updates w/ daughter/HCP unless medically necessary Quality Stroke Does the patient have a stroke diagnosis?: No VTE Prior VTE?: No VTE Risk Level:: Medical - moderate - high VTE Device Contraindication: N/A - Device Ordered VTE Drug Contraindication: N/A - Med Ordered
[2025-05-01 06:29] LABS: Albumin Level 2.7 g/dL (3.5-5.0); Anion Gap 13 (12-20); Blood Urea Nitrogen 5 mg/dL (9-16); Calcium 7.2 mg/dL (8.4-10.2); Carbon Dioxide 22 mmol/L (22-29); Chloride 100 mmol/L (96-108); Creatinine Clr Calc Pharmacy 53.6; Estimated Glomerular Filt Rate > 60; Magnesium 1.5 mg/dL (1.6-2.6); Potassium 3.1 mmol/L (3.3-5.1); Sodium 132 mmol/L (135-145)
--- NOTE | 2025-05-01 06:39 | PC.NURSE ---
CARE ASSUMED 7PM..ALERT..ORIENTED X3...RESPIRATIONS EASY ON ROOM AIR...BILATERAL LOWER ABDOMINAL DRESSINGS DRY/INTACT..ILEOSTOMY WITH LIQUIED GREEN-BROWN OUTPUT..RIGHT LATERAL MIKI DRAIN WITH GREENISH LIQUIED DRAINAGE...CONTINUES WITH 8/10 LOWER ABDOMINAL PAIN SINCE ADMISSION PER PATIENT..UTILIZING DILAUDID 1 MG IV Q4HRS WITH EFFECT PER PATIENT...SBP 80'S AT SHIFT CHANGE..LEVOPHED DRIP RESUMED PER PROVIDER..CURRENTLY LEVOPHED O.07 MCG/KG/MIN WITH CURRENT BP 108/65..OOB TO BEDSIDE COMMODE W/O DIZZYNESS TO VOID..RESTFUL OVERNIGHT
--- NOTE | 2025-05-01 08:00 | ECG_ITS ---
Test Reason : check qt Blood Pressure : */* mmHG Vent. Rate : 80 BPM Atrial Rate : 80 BPM P-R Int : 154 ms QRS Dur : 78 ms QT Int : 396 ms P-R-T Axes : 4 1 261 degrees QTcB Int : 456 ms Sinus rhythm with Premature supraventricular complexes Low voltage QRS Cannot rule out Anterior infarct , age undetermined Abnormal ECG When compared with ECG of 30-Apr-2025 10:14, Premature supraventricular complexes are now Present Referred By: Etta Garcia Electronically Signed By: TERELL PATEL
[2025-05-01] MEDS: Albumin Human 25 % 50 ML 100 ML IV (09:01)
[2025-05-01] MEDS: Calcium Gluconate/NaCl,Iso-Osm 1 GM/50 ML PLAST..BAG IV (10:30)
[2025-05-01] MEDS: Potassium Phosphate/NS 15 MMOL/250 ML PLAST..BAG 62.5 MMOL IV (10:30)
[2025-05-01] MEDS: 0.9 % Sodium Chloride Flush 3 ML SYRINGE IVFLUSH ×3 (10:44→23:51)
[2025-05-01] MEDS: iohexoL 350 MG/ML 100 ML INFUS..BTL 85 ML IV (16:42)
--- NOTE | 2025-05-01 17:24 | HO.OSTOMY ---
Ostomy and Wound Consult: Initial 65yr old?female admitted to [facility] on 04/27/25 - See progress notes and H&P for detailed history.? Wound consult placed for Wound near ostomy and difficulty pouching.? Buttock not assessed at today visit - no new topical recommendations needed per direct care team for buttock. Patient reports the has had to change her ostomy pouch several times today and recently has not been getting as much wear time as in past. Pouch assessed silent leak noted at 3 o'clock. Patient agreeable to pouch change. Pouch removed back of pouch assessed and leak confirmed to 3 o'clock location. She appears to have a crease that forms to this location. The patient was agreeable to me filling with Barrier Strip paste. See photo below. 3 o'clock crease Stoma with barrier strip paste applied prior to pouch assessment. Followed by Convex pouch application - template left at bedside. Completed with Brava Elastic C strips to extend the pouch edge in an effort to minimize leaking. Patient refused belt application. Abdominal abscess outside of ileostomy bilateral site treated and managed by General Surgery team. The dressings were removed and assessed - recommend continue with dry dressing for drainage absorption. Patient with new sites of bulging skin provider ordered CT scan and pending results. Abdominal Abscess / Fistula Sites - Cleanse with NS moist gauze, pat dry. Apply skin prep, cover with dry gauze dressing. Change daily and PRN. Gluteal fold Etiology: ?MASD (Moisture Associated Skin Damage) ?Present on Admission Goals of Treatment: ? Barrier cream and foam in use Recommendations: 1. Turn and Reposition every 2 hours and as needed for patient comfort.? Use pillows or wedges to support off loading positions. 2. Off Load all bony prominences with use of pillows and heel boots if needed.? Apply Preventative foams where needed. ? 3. Monitor for incontinence and moisture control, use barrier creams when needed for prevention and treatment. 4. Provide adequate and supplemental nutrition.? 5. Order low air loss mattress. 6. When applicable maintain blood glucose levels per Providers order. Buttock / Gluteal Fold - Off Load Pressure with Q2 hr turns and use of pillows - Cleanse with PH balance spray or wipes, pat dry. ?Apply thin layer of Triad to wound bed - only pat and dab no scrub and rub when soiling occurs. Reapply thin layer PRN after each episode of incontinence. May use foam if foam is not trapping moisture with in skin fold - if so continue with use of Triad / Barrier cream alone. Abdominal Abscess / Fistula Sites - Cleanse with NS moist gauze, pat dry. Apply skin prep, cover with dry gauze dressing. Change daily and PRN. Ostomy - Use Template for stoma size left at bedside - Apply barrier strip paste around stoma and at the 3 o'clock location to aminta crease. Apply Convex pouch, completed with Brava Elastic C strips to extend the pouch edge in an effort to minimize leaking. Re-consult wound care Nurse for wound deterioration or wound changes.
[2025-05-01 18:20] LABS: MANUAL DIFF FLAG NO
[2025-05-01 18:29] LABS: Hematocrit 23.4 % (37.0-47.0); Hemoglobin 7.9 g/dl (12.0-16.0); Imm Gran Abs Auto 0.03 X10*3/uL (0.00-0.03); Imm Gran Pct Auto 0.4 % (0.0-0.4); Lymphocytes Absolute Auto 1.6 X10*3/uL (1.2-4.9); Mean Corpuscular HGB Conc 33.8 g/dl (31.0-35.0); Mean Corpuscular Hemoglobin 29.6 pg (27.0-33.0); Mean Corpuscular Volume 87.6 fL (80.0-98.0); NRBC Abs Auto 0.000 X10*3/uL (0.0-0.012); NRBC Pct Auto 0.0 /100WBC (0.0-0.2); Platelet Count 146 X10*3/uL (160-400); Red Blood Count 2.67 X10*6/uL (4.20-5.50); White Blood Count 8.2 X10*3/uL (4.8-10.8)
--- NOTE | 2025-05-01 18:40 | PC.NURSE ---
levo titrated off eartona white wound RN messaged and came to the bedside to assess mid abdominal and right mid abdominal wounds, wound RN now recommends ICU RNs change ostomy bag and utilize skin prep and ostomy paste to cerate flat surface surrounding stoma CT of abdomen today, (see results)... transporter and this RN to CT scanner and back to ICU without complication, patient tolerated well patient emotional today, feels like her condition is not improving and/or getting worse, therapeutic communication with good effect continued albumin and elecrolyte replenishment today, did not eat much of any meal, reports increased pain and no appetite today.
[2025-05-02] VITALS (26 sets, daily range): BP systolic 84–129; BP diastolic 49–76; PULSE 66–93; RESP 7–30; TEMP 36–36.6; O2SAT 95–100; BMI 26.0
[2025-05-02] MEDS: metroNIDAZOLE/NS 500 MG/100 ML PIGGYBACK 100 MG IV ×3 (00:34→16:38)
[2025-05-02] MEDS: Linezolid/D5W 600 MG/300 ML PIGGYBACK 300 MG IV ×2 (03:07→15:09)
[2025-05-02 04:46] LABS: MANUAL DIFF FLAG NO
[2025-05-02 04:48] LABS: Hematocrit 26.6 % (37.0-47.0); Hemoglobin 8.9 g/dl (12.0-16.0); Imm Gran Abs Auto 0.05 X10*3/uL (0.00-0.03); Imm Gran Pct Auto 0.3 % (0.0-0.4); Lymphocytes Absolute Auto 2.1 X10*3/uL (1.2-4.9); Mean Corpuscular HGB Conc 33.5 g/dl (31.0-35.0); Mean Corpuscular Hemoglobin 29.0 pg (27.0-33.0); Mean Corpuscular Volume 86.6 fL (80.0-98.0); NRBC Abs Auto 0.000 X10*3/uL (0.0-0.012); NRBC Pct Auto 0.0 /100WBC (0.0-0.2); Platelet Count 207 X10*3/uL (160-400); Red Blood Count 3.07 X10*6/uL (4.20-5.50); White Blood Count 14.3 X10*3/uL (4.8-10.8)
[2025-05-02 05:13] LABS: Albumin Level 2.6 g/dL (3.5-5.0); Anion Gap 12 (12-20); Blood Urea Nitrogen 4 mg/dL (9-16); Calcium 7.3 mg/dL (8.4-10.2); Carbon Dioxide 22 mmol/L (22-29); Chloride 102 mmol/L (96-108); Creatinine Clr Calc Pharmacy 58.1; Estimated Glomerular Filt Rate > 60; Magnesium 1.3 mg/dL (1.6-2.6); Potassium 2.8 mmol/L (3.3-5.1); Sodium 133 mmol/L (135-145)
[2025-05-02] MEDS: Magnesium Sulfate/H2O 2 GM/50 ML PIGGYBACK IV (05:49)
[2025-05-02] MEDS: Albumin Human 25 % 50 ML 100 ML IV ×5 (05:52→09:48)
[2025-05-02] MEDS: Potassium Chloride/H20 40 MEQ/100 ML PIGGYBACK 50 MEQ IV (05:57)
--- NOTE | 2025-05-02 06:31 | P.PNCC_ITS ---
Subjective Subjective Date of Service: 05/02/25 Interval History: no significant overnight events Critical Care Time (minutes): 60 Physical Exam 2 Vital Signs: Vital Signs: Last Vital Signs Temp 97.8 F 05/02/25 00:00 Pulse 70 05/02/25 06:29 Resp 12 05/02/25 06:00 BP 112/65 05/02/25 06:29 Pulse Ox 96 05/02/25 06:00 O2 Del Method Room Air 05/02/25 06:00 BMI result Body Mass Index 26.0 Const: General: cooperative, healthy appearing, comfortable, no acute distress, well developed, alert, awake and Physically active O rientation/consciousness: patient oriented x3 HEENT: Head: Yes normal to inspection, Yes normocephalic and Yes atraumatic Eyes: General: appearance normal, both eyes and all related structures Neck: Neck: Yes normal visual inspection, Yes full ROM, Yes trachea midline and Yes supple Chest: Chest palpation & inspection: normal inspection of the chest Resp: Other: no appreciable rales, rhonchi, wheezing Effort & Inspection: normal respiratory effort Cardio: Rate: regular rate Rhythm: regular rhythm GI: Other: appreciable tenderness to palpation suprapubic region, with some voluntary guarding; colostomy bag in place; R and midline bandages clean, dry, intact; MIKI drain w/ copious green-brown drainage Palpation (GI): Soft to palpation, not firm, no guarding and not rigid Skin: General skin exam: no rashes or lesions noted Neuro: General: patient oriented x3, tone normal, moves all extremities and no focal motor deficits Extrem: General: Yes normal to inspection, Yes full ROM, Yes capillary refill normal and Yes no clubbing, cyanosis or edema Psych: Other: tearful Objective Data Labs 05/02/25 04:32 05/02/25 04:32 Labs: Laboratory Results - last 24 hr 05/01/25 05/02/25 18:05 04:32 WBC 8.2 14.3 H RBC 2.67 L 3.07 L Hgb 7.9 L 8.9 L Hct 23.4 L 26.6 L MCV 87.6 86.6 MCH 29.6 29.0 MCHC 33.8 33.5 RDW 15.7 15.6 Plt Count 146 L D 207 D MPV 9.2 L 9.0 L Immature Gran % (Auto) 0.4 0.3 Neut % (Auto) 70.3 76.6 H Lymph % (Auto) 19.2 L 14.7 L [place] % (Auto) 6.5 5.0 Eos % (Auto) 2.9 2.5 Baso % (Auto) 0.7 0.9 Lymph # (Auto) 1.6 2.1 [place] # (Auto) 0.5 0.7 Eos # (Auto) 0.2 0.4 Baso # (Auto) 0.1 0.1 Abs Immat Gran (auto) 0.03 0.05 H Absolute Neuts (auto) 5.8 11.0 H Absolute Nucleated RBC 0.000 0.000 Nucleated RBC % (auto) 0.0 0.0 Sodium 133 L Potassium 2.8 L* Chloride 102 Carbon Dioxide 22 Anion Gap 12 BUN 4 L Creatinine 0.85 Estim Creat Clear Calc 58.1 Estimated GFR > 60 Random Glucose 157 H Calcium 7.3 L Phosphorus 2.1 L Magnesium 1.3 L* Albumin 2.6 L Microbiology Microbiology Results: Microbiology 04/30/25 Unknown Abdomen - Abdominal Gram Stain - Final 04/30/25 Unknown Abdomen - Abdominal Routine Culture - Preliminary Culture in progress. 04/27/25 11:22 Blood - Venous Blood Culture - Preliminary No growth after 48 hours. 04/27/25 11:22 Blood - Venous Blood Culture - Preliminary No growth after 48 hours. Progress Note: A&P Assessment and plan (1) Hypotension: Status: Acute (2) Abdominal wall fistula: Status: Acute Plan Patient is a 65 Y F w/ hypertension, hyperlipidemia, CAD, paroxysmal atrial fibrillation on apixaban, prior pancreatitis, diverticulitis c/b perforation s/p colectomy, c/b intra-abdominal 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,?presenting to ED on 04/27 w/ bloody drainage from fistula found to be hypotensive, c/f hemorrhagic shock N: no acute issues CV: c/f hemorrhagic shock, s/p 1 pRBC and K-Centra on 04/27, to monitor closely; CAD, paroxysmal atrial fibrillation, to hold home apixaban in setting of hemorrhage; echo 04/29 suggestive of stress-induced cardiomyopathy; appreciate cardiology recommendations R: no acute issues GI: prior diverticulitis c/b perforation s/p colectomy, c/b intra-abdominal 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, presenting w/ bloody drainage c/f infected hematoma, appreciate general surgery recommendations : acute renal insufficiency, improved; to monitor renal indices H: hemorrhage c/b acute blood loss anemia, to monitor, transfuse as needed; shared decision making, chemical DVT prophylaxis, mechanical devices ID: given hypotension, empiric zosyn/flagyl/zyvox; to follow-up abscess Cx 04/30 E: to monitor hyper-/hypo-glycemia S: of note, patient prefers to defer daily updates w/ daughter/HCP unless medically necessary Quality Stroke Does the patient have a stroke diagnosis?: No VTE Prior VTE?: No VTE Risk Level:: Medical - moderate - high VTE Device Contraindication: N/A - Device Ordered VTE Drug Contraindication: N/A - Med Ordered
--- NOTE | 2025-05-02 08:00 | ECG_ITS ---
Test Reason : ck qt Blood Pressure : */* mmHG Vent. Rate : 79 BPM Atrial Rate : 79 BPM P-R Int : 164 ms QRS Dur : 82 ms QT Int : 400 ms P-R-T Axes : 45 20 -64 degrees QTcB Int : 458 ms Normal sinus rhythm Low voltage QRS Nonspecific T wave abnormality Abnormal ECG When compared with ECG of 01-May-2025 09:19, Premature supraventricular complexes are no longer Present Referred By: Etta Garcia Electronically Signed By: TERELL PATEL
[2025-05-02] MEDS: 0.9 % Sodium Chloride Flush 3 ML SYRINGE IVFLUSH ×3 (08:42→23:28)
[2025-05-02] MEDS: Calcium Gluconate/NaCl,Iso-Osm 1 GM/50 ML PLAST..BAG IV (09:50)
[2025-05-02 10:12] LABS: Lipase 28 U/L (8-78)
[2025-05-02] MEDS: Potassium Phosphate/NS 15 MMOL/250 ML PLAST..BAG 62.5 MMOL IV ×2 (10:39→16:15)
--- NOTE | 2025-05-02 10:58 | PM.PNGS ---
Subjective Subjective Date of Service: 05/02/25 Interval history: Remains on low-dose pressors Otherwise, seems to be as baseline She did mentioned that she had some nausea overnight and noticed that her cholecystostomy tube drain had been kinked She feels better this morning No fever Stoma has been functioning well Physical Exam Vital Signs: Vital Signs: Last Vital Signs Temp 97.4 F 05/02/25 10:00 Pulse 77 05/02/25 10:00 Resp 7 L 05/02/25 10:00 BP 114/59 L 05/02/25 10:00 Pulse Ox 95 05/02/25 10:00 O2 Del Method Room Air 05/02/25 10:00 BMI result Body Mass Index 26.0 Const: General: comfortable and no acute distress Resp: Effort & Inspection: normal respiratory effort Cardio: Rate: regular rate GI: Other: Ileostomy with output, cholecystostomy drain in place he had a lot of bilious output Wide mouthed hernia on lower abdomen from her previous incision, reducible Open wound on the upper part of the midline incision about 1.5 cm, appears clean No fluctuance on the rest of the abdomen Palpation (GI): Soft to palpation, not firm and no guarding Objective Data Active Medications Calcium Carbonate (Calcium Carbonate 750 Mg Tab.Chew) 750 mg PO Q4H PRN PRN Reason: Heartburn Last Admin: 05/01/25 22:12 Dose: 750 mg Documented By: NILO Heparin Sodium (Porcine) (Heparin Sodium,Porcine 5,000 Unit/Ml Vial) 5,000 unit SUBCUT Q8H [facility] Last Admin: 05/02/25 09:51 Dose: 5,000 unit Documented By: KARI Hydromorphone HCl (Hydromorphone Hcl 1 Mg/Ml Syringe) 1 mg IVPUSH Q4H PRN; Protocol PRN Reason: Pain, Severe (Pain Scale 7-10) Last Admin: 05/02/25 09:50 Dose: 1 mg Documented By: KARI Norepinephrine Bitartrate (Levophed) 8 mg in 250 mls @ 0 mls/hr IV .Q0M [facility]; Protocol Last Titration: 05/02/25 08:46 Dose: 0.03 mcg/kg/min, 2.98 mls/hr Documented By: KARI Piperacillin Sod/Tazobactam (Sod 3.375 gm/ Sodium Chloride) 50 mls @ 100 mls/hr IV Q6H [facility] Last Infusion: 05/02/25 06:18 Dose: Infused Documented By: NILO Linezolid (Zyvox/D5w) 600 mg in 300 mls @ 300 mls/hr IV Q12H [facility] Last Infusion: 05/02/25 04:12 Dose: Infused Documented By: NILO Metronidazole (Flagyl) 500 mg in 100 mls @ 100 mls/hr IV Q8H [facility] Last Admin: 05/02/25 10:38 Dose: 100 mls/hr Documented By: KARI Potassium Phosphate (Kphos) 15 mmol in 250 mls @ 62.5 mls/hr IV Q4H [facility] Stop: 05/02/25 15:59 Last Admin: 05/02/25 10:39 Dose: 62.5 mls/hr Documented By: KARI Lidocaine (Lidocaine 4 % Patch Adh..Patch) 1 patch TRANSDERMA DAILY [facility]; Protocol Last Admin: 05/02/25 09:48 Dose: Not Given Documented By: KARI Non-Admin Reason: Patient Refused Midodrine (Midodrine Hcl 5 Mg Tablet) 5 mg PO TID [facility] Last Admin: 05/02/25 08:42 Dose: 5 mg Documented By: KARI Ondansetron HCl (Ondansetron Hcl 4 Mg/2 Ml Vial) 4 mg IVPUSH Q8H PRN PRN Reason: Nausea and Vomiting Last Admin: 05/02/25 05:40 Dose: 4 mg Documented By: NILO Sodium Chloride (0.9 % Sodium Chloride Flush 3 Ml Syringe) 3 ml IVFLUSH QSHIFT [facility] Last Admin: 05/02/25 08:42 Dose: 3 ml Documented By: KARI Labs 05/02/25 04:32 05/02/25 04:32 Labs: Laboratory Results - last 24 hr 05/01/25 05/02/25 05/02/25 18:05 04:32 09:31 MCV 87.6 86.6 MCH 29.6 29.0 MCHC 33.8 33.5 RDW 15.7 15.6 Plt Count 146 L D 207 D MPV 9.2 L 9.0 L Immature Gran % (Auto) 0.4 0.3 Neut % (Auto) 70.3 76.6 H Lymph % (Auto) 19.2 L 14.7 L [place] % (Auto) 6.5 5.0 Eos % (Auto) 2.9 2.5 Baso % (Auto) 0.7 0.9 Lymph # (Auto) 1.6 2.1 [place] # (Auto) 0.5 0.7 Eos # (Auto) 0.2 0.4 Baso # (Auto) 0.1 0.1 Abs Immat Gran (auto) 0.03 0.05 H Absolute Neuts (auto) 5.8 11.0 H Absolute Nucleated RBC 0.000 0.000 Nucleated RBC % (auto) 0.0 0.0 Anion Gap 12 Estim Creat Clear Calc 58.1 Estimated GFR > 60 Random Glucose 157 H Calcium 7.3 L Phosphorus 2.1 L Magnesium 1.3 L* Albumin 2.6 L Lipase 28 Microbiology Microbiology Results: Microbiology 04/30/25 Unknown Gram Stain - Final Abdomen - Abdominal Routine Culture - Preliminary Gram negative antoni Procedures Date of Service Date of Service: 05/02/25 Progress Note: A&P Assessment and plan (1) Ileostomy in place: Status: Acute Assessment and Plan: Ileostomy functioning well CAT scan repeated - fluid collections mentioned I have reviewed her images and I do not feel that there is any drainable abscess at this time We did consult IR for opinion She does have a new abdominal hernia with bowel loops but this has nonobstructing and is wide mouthed To be started on midodrine as per clinical microbiologist Does not appear septic otherwise Diet as tolerated Continue current care We will change cholecystostomy tube drain to a bile bag Time Spent With Patient Time: Total time managing care of this patient today ____ minutes. Quality Stroke Does the patient have a stroke diagnosis?: No VTE Prior VTE?: No VTE Risk Level:: Medical - moderate - high VTE Device Contraindication: N/A - Device Ordered VTE Drug Contraindication: N/A - Med Ordered
--- NOTE | 2025-05-02 14:18 | MHC.CM.PN ---
Pt continues care in ICU: Active with [facility]. Family to transport pt to home. CM to follow
[2025-05-02 18:27] LABS: MANUAL DIFF FLAG NO
[2025-05-02 18:35] LABS: Hematocrit 25.4 % (37.0-47.0); Hemoglobin 8.5 g/dl (12.0-16.0); Imm Gran Abs Auto 0.06 X10*3/uL (0.00-0.03); Imm Gran Pct Auto 0.5 % (0.0-0.4); Lymphocytes Absolute Auto 2.6 X10*3/uL (1.2-4.9); Mean Corpuscular HGB Conc 33.5 g/dl (31.0-35.0); Mean Corpuscular Hemoglobin 29.1 pg (27.0-33.0); Mean Corpuscular Volume 87.0 fL (80.0-98.0); NRBC Abs Auto 0.000 X10*3/uL (0.0-0.012); NRBC Pct Auto 0.0 /100WBC (0.0-0.2); Platelet Count 171 X10*3/uL (160-400); Red Blood Count 2.92 X10*6/uL (4.20-5.50); White Blood Count 12.9 X10*3/uL (4.8-10.8)
[2025-05-02 18:58] LABS: Anion Gap 15 (12-20); Blood Urea Nitrogen 3 mg/dL (9-16); Calcium 7.8 mg/dL (8.4-10.2); Carbon Dioxide 20 mmol/L (22-29); Chloride 103 mmol/L (96-108); Creatinine Clr Calc Pharmacy 62.6; Estimated Glomerular Filt Rate > 60; Magnesium 1.5 mg/dL (1.6-2.6); Potassium 4.1 mmol/L (3.3-5.1); Sodium 134 mmol/L (135-145)
--- NOTE | 2025-05-02 19:02 | PC.NURSE ---
patient alert and oriented x4, see assessment for full details, patient continues to be on Levophed unable to titrate off as SBP dropped to 80's and MAP decreased to low 60's.
[2025-05-03] VITALS (33 sets, daily range): BP systolic 80–127; BP diastolic 43–69; PULSE 65–94; RESP 9–22; TEMP 36.2–36.4; O2SAT 94–100; BMI 26.0
[2025-05-03] MEDS: metroNIDAZOLE/NS 500 MG/100 ML PIGGYBACK 100 MG IV ×3 (00:56→18:21)
[2025-05-03] MEDS: Linezolid/D5W 600 MG/300 ML PIGGYBACK 300 MG IV ×2 (03:12→15:59)
[2025-05-03 04:53] LABS: MANUAL DIFF FLAG NO
[2025-05-03 04:56] LABS: Hematocrit 24.3 % (37.0-47.0); Hemoglobin 8.0 g/dl (12.0-16.0); Imm Gran Abs Auto 0.04 X10*3/uL (0.00-0.03); Imm Gran Pct Auto 0.3 % (0.0-0.4); Lymphocytes Absolute Auto 2.9 X10*3/uL (1.2-4.9); Mean Corpuscular HGB Conc 32.9 g/dl (31.0-35.0); Mean Corpuscular Hemoglobin 28.7 pg (27.0-33.0); Mean Corpuscular Volume 87.1 fL (80.0-98.0); NRBC Abs Auto 0.000 X10*3/uL (0.0-0.012); NRBC Pct Auto 0.0 /100WBC (0.0-0.2); Platelet Count 144 X10*3/uL (160-400); Red Blood Count 2.79 X10*6/uL (4.20-5.50); White Blood Count 12.8 X10*3/uL (4.8-10.8)
[2025-05-03 05:12] LABS: Albumin Level 2.8 g/dL (3.5-5.0); Anion Gap 13 (12-20); Blood Urea Nitrogen 3 mg/dL (9-16); Calcium 7.3 mg/dL (8.4-10.2); Carbon Dioxide 21 mmol/L (22-29); Chloride 105 mmol/L (96-108); Creatinine Clr Calc Pharmacy 61.0; Estimated Glomerular Filt Rate > 60; Magnesium 1.5 mg/dL (1.6-2.6); Potassium 3.6 mmol/L (3.3-5.1); Sodium 135 mmol/L (135-145)
[2025-05-03] MEDS: Magnesium Sulfate/H2O 2 GM/50 ML PIGGYBACK IV (05:57)
[2025-05-03] MEDS: 0.9 % Sodium Chloride Flush 3 ML SYRINGE IVFLUSH ×2 (08:00→16:00)
[2025-05-03] MEDS: Albumin Human 25 % 100 ML IV ×2 (08:00→15:49)
--- NOTE | 2025-05-03 09:07 | P.PNCC_ITS ---
Subjective Subjective Date of Service: 05/03/25 Interval History: no significant overnight events; persistent vasopressor requirement Critical Care Time (minutes): 60 Physical Exam 2 Vital Signs: Vital Signs: Last Vital Signs Temp 97.5 F 05/03/25 08:00 Pulse 81 05/03/25 08:00 Resp 22 H 05/03/25 08:00 BP 105/62 05/03/25 08:00 Pulse Ox 99 05/03/25 08:00 O2 Del Method Room Air 05/03/25 08:00 BMI result Body Mass Index 26.0 Const: General: cooperative, healthy appearing, comfortable, no acute distress, well developed, alert, awake and Physically active O rientation/consciousness: patient oriented x3 HEENT: Head: Yes normal to inspection, Yes normocephalic and Yes atraumatic Eyes: General: appearance normal, both eyes and all related structures Neck: Neck: Yes normal visual inspection, Yes full ROM, Yes trachea midline and Yes supple Chest: Chest palpation & inspection: normal inspection of the chest Resp: Other: no appreciable rales, rhonchi, wheezing Effort & Inspection: normal respiratory effort Cardio: Rate: regular rate Rhythm: regular rhythm GI: Other: appreciable ostomy bag w/ green-brown fluid; midline and R bandages clean, dry, intact; appreciable suprapubic hernia w/o overlying erythema; some tenderness to palpation, though no appreciable guarding, rebound Inspection: No distended Palpation (GI): Soft to palpation, not firm, nontender, no guarding and not rigid Skin: General skin exam: no rashes or lesions noted Neuro: General: patient oriented x3, tone normal, moves all extremities and no focal motor deficits Extrem: General: Yes normal to inspection, Yes full ROM, Yes capillary refill normal and Yes no clubbing, cyanosis or edema Psych: Appearance: grossly normal Objective Data Labs 05/03/25 04:31 05/03/25 04:31 Labs: Laboratory Results - last 24 hr 05/02/25 05/02/25 05/03/25 09:31 18:15 04:31 WBC 12.9 H 12.8 H RBC 2.92 L 2.79 L Hgb 8.5 L 8.0 L Hct 25.4 L 24.3 L MCV 87.0 87.1 MCH 29.1 28.7 MCHC 33.5 32.9 RDW 15.7 15.7 Plt Count 171 144 L MPV 9.1 L 8.8 L Immature Gran % (Auto) 0.5 H 0.3 Neut % (Auto) 69.3 66.5 Lymph % (Auto) 20.5 22.7 [place] % (Auto) 5.9 6.3 Eos % (Auto) 2.9 3.4 Baso % (Auto) 0.9 0.8 Lymph # (Auto) 2.6 2.9 [place] # (Auto) 0.8 0.8 Eos # (Auto) 0.4 0.4 Baso # (Auto) 0.1 0.1 Abs Immat Gran (auto) 0.06 H 0.04 H Absolute Neuts (auto) 9.0 H 8.5 H Absolute Nucleated RBC 0.000 0.000 Nucleated RBC % (auto) 0.0 0.0 Sodium 134 L 135 Potassium 4.1 D 3.6 Chloride 103 105 Carbon Dioxide 20 L 21 L Anion Gap 15 13 BUN 3 L 3 L Creatinine 0.78 0.80 Estim Creat Clear Calc 62.6 61.0 Estimated GFR > 60 > 60 Random Glucose 84 101 Calcium 7.8 L D 7.3 L D Phosphorus 3.8 2.6 L Magnesium 1.5 L 1.5 L Albumin 2.8 L Lipase 28 Microbiology Microbiology Results: Microbiology 04/30/25 Unknown Abdomen - Abdominal Gram Stain - Final 04/30/25 Unknown Abdomen - Abdominal Routine Culture - Final Klebsiella oxytoca Escherichia coli 04/27/25 11:22 Blood - Venous Blood Culture - Final No growth after 5 days. 04/27/25 11:22 Blood - Venous Blood Culture - Final No growth after 5 days. Progress Note: A&P Assessment and plan (1) Hypotension: Status: Acute (2) Abdominal wall fistula: Status: Acute Plan Patient is a 65 Y F w/ hypertension, hyperlipidemia, CAD, paroxysmal atrial fibrillation on apixaban, prior pancreatitis, diverticulitis c/b perforation s/p colectomy, c/b intra-abdominal 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,?presenting to ED on 04/27 w/ bloody drainage from fistula found to be hypotensive, c/f hemorrhagic shock N: no acute issues CV: c/f hemorrhagic shock, s/p 1 pRBC and K-Centra on 04/27, to monitor closely; CAD, paroxysmal atrial fibrillation, to hold home apixaban in setting of hemorrhage; echo 04/29 suggestive of stress-induced cardiomyopathy; appreciate cardiology recommendations R: no acute issues GI: prior diverticulitis c/b perforation s/p colectomy, c/b intra-abdominal 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, presenting w/ bloody drainage c/f infected hematoma, appreciate general surgery recommendations : acute renal insufficiency, improved; to monitor renal indices H: hemorrhage c/b acute blood loss anemia, to monitor, transfuse as needed; shared decision making, chemical DVT prophylaxis, mechanical devices ID: given hypotension, empiric cefepime/flagyl/zyvox; abscess Cx 04/30 w/ e. coli and klebsiella E: to monitor hyper-/hypo-glycemia S: of note, patient prefers to defer daily updates w/ daughter/HCP unless medically necessary Quality Stroke Does the patient have a stroke diagnosis?: No VTE Prior VTE?: No VTE Risk Level:: Medical - moderate - high VTE Device Contraindication: N/A - Device Ordered VTE Drug Contraindication: N/A - Med Ordered
[2025-05-03] MEDS: Potassium Phosphate/NS 15 MMOL/250 ML PLAST..BAG 62.5 MMOL IV ×3 (09:10→21:01)
[2025-05-03] MEDS: Calcium Gluconate/NaCl,Iso-Osm 1 GM/50 ML PLAST..BAG IV (09:34)
[2025-05-03] MEDS: cefEPime HCl/D5W 2 GM/50 ML PIGGYBACK IV ×2 (13:58→18:15)
[2025-05-03 18:27] LABS: MANUAL DIFF FLAG NO
[2025-05-03 18:32] LABS: Hematocrit 23.0 % (37.0-47.0); Hemoglobin 7.4 g/dl (12.0-16.0); Imm Gran Abs Auto 0.05 X10*3/uL (0.00-0.03); Imm Gran Pct Auto 0.4 % (0.0-0.4); Lymphocytes Absolute Auto 2.7 X10*3/uL (1.2-4.9); Mean Corpuscular HGB Conc 32.2 g/dl (31.0-35.0); Mean Corpuscular Hemoglobin 28.6 pg (27.0-33.0); Mean Corpuscular Volume 88.8 fL (80.0-98.0); NRBC Abs Auto 0.000 X10*3/uL (0.0-0.012); NRBC Pct Auto 0.0 /100WBC (0.0-0.2); Platelet Count 144 X10*3/uL (160-400); Red Blood Count 2.59 X10*6/uL (4.20-5.50); White Blood Count 12.7 X10*3/uL (4.8-10.8)
[2025-05-03 18:48] LABS: Anion Gap 14 (12-20); Blood Urea Nitrogen 3 mg/dL (9-16); Calcium 7.8 mg/dL (8.4-10.2); Carbon Dioxide 21 mmol/L (22-29); Chloride 105 mmol/L (96-108); Creatinine Clr Calc Pharmacy 61.0; Estimated Glomerular Filt Rate > 60; Magnesium 1.7 mg/dL (1.6-2.6); Potassium 4.2 mmol/L (3.3-5.1); Sodium 136 mmol/L (135-145)
--- NOTE | 2025-05-03 19:03 | PC.NURSE ---
Assumed care of patient 0700. Patient stands and pivots to commode to void. Patient remains on small dose of levophed gtt @0.03 at start of shift. Patient titrated off of Levophed approx 18:30PM. Midodrine dose increased, Albumin IV given per MAR orders.
--- NOTE | 2025-05-03 22:56 | PC.NURSE ---
upon intital assesment pt on commode with [employer] stating ileosomy burst. pt helped back to bed and RN attempted to gather supplies and change appliance. pt began ripping off appliance and ajacent abscess dressings the dressing left of the ileosomy also had packing that came out dressing. Pt demanding to be given the supplies stating you guys need to learn how to do this This RN attempted to reassure pt that staff was able do this task. pt insists one changing herself only allowing RN to help when she request. pt insists going forward appliance be changed when leak is traveling per previous shift MD spoke with about not changing appliance d/t risk of skin breakdown. new packing and dressing applied to left abscess pt stating to this RN do not pack the wound to tightly or it will not drain and new dressing applied to right abscess. pt medicated for pain and nausea and vomiting per NOV . resting in bed call beyer within reach. plan of care continues
[2025-05-04] VITALS (26 sets, daily range): BP systolic 87–111; BP diastolic 49–77; PULSE 67–92; RESP 12–20; TEMP 36.4–37; O2SAT 96–100; BMI 26.0
[2025-05-04] MEDS: metroNIDAZOLE/NS 500 MG/100 ML PIGGYBACK 100 MG IV ×3 (00:17→17:37)
[2025-05-04] MEDS: 0.9 % Sodium Chloride Flush 3 ML SYRINGE IVFLUSH ×3 (00:24→15:35)
[2025-05-04] MEDS: Potassium Phosphate/NS 15 MMOL/250 ML PLAST..BAG 62.5 MMOL IV (01:02)
[2025-05-04] MEDS: cefEPime HCl/D5W 2 GM/50 ML PIGGYBACK IV ×3 (01:03→17:38)
[2025-05-04] MEDS: Linezolid/D5W 600 MG/300 ML PIGGYBACK 300 MG IV ×2 (03:55→15:36)
[2025-05-04 05:25] LABS: MANUAL DIFF FLAG NO
[2025-05-04 05:32] LABS: Hematocrit 23.7 % (37.0-47.0); Hemoglobin 7.8 g/dl (12.0-16.0); Imm Gran Abs Auto 0.06 X10*3/uL (0.00-0.03); Imm Gran Pct Auto 0.5 % (0.0-0.4); Lymphocytes Absolute Auto 2.8 X10*3/uL (1.2-4.9); Mean Corpuscular HGB Conc 32.9 g/dl (31.0-35.0); Mean Corpuscular Hemoglobin 28.9 pg (27.0-33.0); Mean Corpuscular Volume 87.8 fL (80.0-98.0); NRBC Abs Auto 0.000 X10*3/uL (0.0-0.012); NRBC Pct Auto 0.0 /100WBC (0.0-0.2); Platelet Count 140 X10*3/uL (160-400); Red Blood Count 2.70 X10*6/uL (4.20-5.50); White Blood Count 12.4 X10*3/uL (4.8-10.8)
[2025-05-04 05:44] LABS: Albumin Level 3.0 g/dL (3.5-5.0); Anion Gap 13 (12-20); Blood Urea Nitrogen 5 mg/dL (9-16); Calcium 7.3 mg/dL (8.4-10.2); Carbon Dioxide 20 mmol/L (22-29); Chloride 106 mmol/L (96-108); Creatinine Clr Calc Pharmacy 63.4; Estimated Glomerular Filt Rate > 60; Magnesium 1.5 mg/dL (1.6-2.6); Potassium 4.5 mmol/L (3.3-5.1); Sodium 134 mmol/L (135-145)
[2025-05-04] MEDS: Magnesium Sulfate/H2O 2 GM/50 ML PIGGYBACK IV (06:32)
--- NOTE | 2025-05-04 06:52 | P.PNCC_ITS ---
Subjective Subjective Date of Service: 05/04/25 Interval History: no significant overnight events Critical Care Time (minutes): 60 Physical Exam 2 Vital Signs: Vital Signs: Last Vital Signs Temp 97.5 F 05/04/25 02:00 Pulse 67 05/04/25 06:00 Resp 12 05/04/25 06:00 BP 107/61 05/04/25 06:00 Pulse Ox 99 05/04/25 06:00 O2 Del Method Room Air 05/04/25 06:00 BMI result Body Mass Index 26.0 Const: General: cooperative, healthy appearing, comfortable, no acute distress, well developed, alert, awake and Physically active O rientation/consciousness: patient oriented x3 HEENT: Head: Yes normal to inspection, Yes normocephalic and Yes atraumatic Eyes: General: appearance normal, both eyes and all related structures Neck: Neck: Yes normal visual inspection, Yes full ROM, Yes trachea midline and Yes supple Chest: Chest palpation & inspection: normal inspection of the chest Resp: Other: no appreciable rales, rhonchi, wheezing Effort & Inspection: normal respiratory effort Cardio: Rate: regular rate Rhythm: regular rhythm GI: Other: colostomy in place, clean, dry, intact; MIKI drain w/ green-brown drainage; R and midline bandages clean, dry, intact Inspection: No Abdominal wall edema and No distended Palpation (GI): S oft to palpation, not firm, nontender, no guarding and not rigid Skin: General skin exam: no rashes or lesions noted Neuro: General: patient oriented x3, tone normal, moves all extremities and no focal motor deficits Extrem: Other: appreciable 1+ pitting edema to bilateral shins General: Yes normal to inspection, Yes full ROM and Yes capillary refill normal Psych: Appearance: grossly normal Objective Data Labs 05/04/25 05:12 05/04/25 05:12 Labs: Laboratory Results - last 24 hr 05/03/25 05/04/25 18:14 05:12 WBC 12.7 H 12.4 H RBC 2.59 L 2.70 L Hgb 7.4 L 7.8 L Hct 23.0 L 23.7 L MCV 88.8 87.8 MCH 28.6 28.9 MCHC 32.2 32.9 RDW 15.9 16.1 H Plt Count 144 L 140 L MPV 9.0 L 9.2 L Immature Gran % (Auto) 0.4 0.5 H Neut % (Auto) 71.2 69.8 Lymph % (Auto) 21.0 22.4 [place] % (Auto) 4.1 3.3 Eos % (Auto) 2.4 3.0 Baso % (Auto) 0.9 1.0 Lymph # (Auto) 2.7 2.8 [place] # (Auto) 0.5 0.4 Eos # (Auto) 0.3 0.4 Baso # (Auto) 0.1 0.1 Abs Immat Gran (auto) 0.05 H 0.06 H Absolute Neuts (auto) 9.0 H 8.7 H Absolute Nucleated RBC 0.000 0.000 Nucleated RBC % (auto) 0.0 0.0 Sodium 136 134 L Potassium 4.2 4.5 Chloride 105 106 Carbon Dioxide 21 L 20 L Anion Gap 14 13 BUN 3 L 5 L Creatinine 0.80 0.77 Estim Creat Clear Calc 61.0 63.4 Estimated GFR > 60 > 60 Random Glucose 81 116 H Calcium 7.8 L D 7.3 L D Phosphorus 3.9 6.1 H Magnesium 1.7 1.5 L Albumin 3.0 L Microbiology Microbiology Results: Microbiology 04/30/25 Unknown Abdomen - Abdominal Gram Stain - Final 04/30/25 Unknown Abdomen - Abdominal Routine Culture - Final Klebsiella oxytoca Escherichia coli 04/27/25 11:22 Blood - Venous Blood Culture - Final No growth after 5 days. 04/27/25 11:22 Blood - Venous Blood Culture - Final No growth after 5 days. Progress Note: A&P Assessment and plan (1) Hypotension: Status: Acute (2) Abdominal wall fistula: Status: Acute Plan Patient is a 65 Y F w/ hypertension, hyperlipidemia, CAD, paroxysmal atrial fibrillation on apixaban, prior pancreatitis, diverticulitis c/b perforation s/p colectomy, c/b intra-abdominal 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,?presenting to ED on 04/27 w/ bloody drainage from fistula found to be hypotensive, c/f hemorrhagic shock N: no acute issues CV: c/f hemorrhagic shock, s/p 1 pRBC and K-Centra on 04/27, to monitor closely; CAD, paroxysmal atrial fibrillation, to hold home apixaban in setting of hemorrhage; echo 04/29 suggestive of stress-induced cardiomyopathy; appreciate cardiology recommendations R: no acute issues GI: prior diverticulitis c/b perforation s/p colectomy, c/b intra-abdominal 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, presenting w/ bloody drainage c/f infected hematoma, appreciate general surgery recommendations : acute renal insufficiency, improved; to monitor renal indices H: hemorrhage c/b acute blood loss anemia, to monitor, transfuse as needed; shared decision making, chemical DVT prophylaxis, mechanical devices ID: given hypotension, empiric cefepime/flagyl/zyvox; abscess Cx 04/30 w/ e. coli and klebsiella E: to monitor hyper-/hypo-glycemia S: of note, patient prefers to defer daily updates w/ daughter/HCP unless medically necessary Quality Stroke Does the patient have a stroke diagnosis?: No VTE Prior VTE?: No VTE Risk Level:: Medical - moderate - high VTE Device Contraindication: N/A - Device Ordered VTE Drug Contraindication: N/A - Med Ordered
[2025-05-04] MEDS: Calcium Gluconate/NaCl,Iso-Osm 1 GM/50 ML PLAST..BAG IV (08:18)
[2025-05-04] MEDS: Albumin Human 25 % 100 ML IV ×2 (08:21→14:35)
--- NOTE | 2025-05-04 16:37 | P.PNGS_ITS ---
Subjective Subjective Date of Service: 05/04/25 Interval history: pt feeling nauseated but ostomy working with stool and some gas she is still on some low pressor support in the ICU She is having dry heaves but only baseline pain Physical Exam 2 Vital Signs: Vital Signs: Last Vital Signs Temp 98.6 F 05/04/25 16:00 Pulse 90 05/04/25 16:00 Resp 14 05/04/25 16:00 BP 108/61 05/04/25 16:00 Pulse Ox 100 05/04/25 16:00 O2 Del Method Room Air 05/04/25 16:00 BMI result Body Mass Index 26.0 Const: General: cooperative and in distress mild GI: Other: abdomen is soft nontender-- cholexystostomy tube with bile present Skin: Other: non icteric Objective Data Active Medications Calcium Carbonate (Calcium Carbonate 750 Mg Tab.Chew) 750 mg PO Q4H PRN PRN Reason: Heartburn Last Admin: 05/04/25 12:16 Dose: 750 mg Documented By: KASSY Heparin Sodium (Porcine) (Heparin Sodium,Porcine 5,000 Unit/Ml Vial) 5,000 unit SUBCUT Q8H [facility] Last Admin: 05/04/25 09:03 Dose: 5,000 unit Documented By: KASSY Hydromorphone HCl (Hydromorphone Hcl 1 Mg/Ml Syringe) 1 mg IVPUSH Q4H PRN; Protocol PRN Reason: Pain, Severe (Pain Scale 7-10) Last Admin: 05/04/25 14:52 Dose: 1 mg Documented By: KASSY Norepinephrine Bitartrate (Levophed) 8 mg in 250 mls @ 0 mls/hr IV .Q0M [facility]; Protocol Last Titration: 05/03/25 18:31 Dose: 0 mcg/kg/min, 0 mls/hr Documented By: KASSY Linezolid (Zyvox/D5w) 600 mg in 300 mls @ 300 mls/hr IV Q12H [facility] Last Infusion: 05/04/25 16:36 Dose: Infused Documented By: KASSY Metronidazole (Flagyl) 500 mg in 100 mls @ 100 mls/hr IV Q8H [facility] Last Infusion: 05/04/25 11:22 Dose: Infused Documented By: KASSY Cefepime HCl (Maxipime) 2 gm in 50 mls @ 100 mls/hr IV Q8H [facility] Last Infusion: 05/04/25 12:11 Dose: Infused Documented By: KASSY Lidocaine (Lidocaine 4 % Patch Adh..Patch) 1 patch TRANSDERMA DAILY [facility]; Protocol Last Admin: 05/04/25 08:57 Dose: Not Given Documented By: KASSY Non-Admin Reason: Patient Refused Lorazepam (Lorazepam 0.5 Mg Tablet) 0.5 mg PO Q4H PRN PRN Reason: Nausea and Vomiting Last Admin: 05/04/25 15:39 Dose: 0.5 mg Documented By: KASSY Midodrine (Midodrine Hcl 5 Mg Tablet) 15 mg PO TID [facility] Last Admin: 05/04/25 14:37 Dose: 15 mg Documented By: KASSY Ondansetron HCl (Ondansetron Hcl 4 Mg/2 Ml Vial) 4 mg IVPUSH Q8H PRN PRN Reason: Nausea and Vomiting Last Admin: 05/04/25 08:38 Dose: 4 mg Documented By: KASSY Pantoprazole Sodium (Pantoprazole Sodium 40 Mg/10 Ml Vial) 40 mg IVPUSH DAILY@0630 [facility] Last Admin: 05/04/25 06:02 Dose: 40 mg Documented By: EVA Sodium Chloride (0.9 % Sodium Chloride Flush 3 Ml Syringe) 3 ml IVFLUSH QSHIFT [facility] Last Admin: 05/04/25 15:35 Dose: 3 ml Documented By: KASSY Labs 05/04/25 17:48 05/04/25 17:48 Labs: Laboratory Results - last 24 hr 05/03/25 05/04/25 18:14 05:12 MCV 88.8 87.8 MCH 28.6 28.9 MCHC 32.2 32.9 RDW 15.9 16.1 H Plt Count 144 L 140 L MPV 9.0 L 9.2 L Immature Gran % (Auto) 0.4 0.5 H Neut % (Auto) 71.2 69.8 Lymph % (Auto) 21.0 22.4 [place] % (Auto) 4.1 3.3 Eos % (Auto) 2.4 3.0 Baso % (Auto) 0.9 1.0 Lymph # (Auto) 2.7 2.8 [place] # (Auto) 0.5 0.4 Eos # (Auto) 0.3 0.4 Baso # (Auto) 0.1 0.1 Abs Immat Gran (auto) 0.05 H 0.06 H Absolute Neuts (auto) 9.0 H 8.7 H Absolute Nucleated RBC 0.000 0.000 Nucleated RBC % (auto) 0.0 0.0 Anion Gap 14 13 Estim Creat Clear Calc 61.0 63.4 Estimated GFR > 60 > 60 Random Glucose 81 116 H Calcium 7.8 L D 7.3 L D Phosphorus 3.9 6.1 H Magnesium 1.7 1.5 L Albumin 3.0 L Procedures Date of Service Date of Service: 05/04/25 Progress Note: A&P Assessment and plan (1) Fluid collection at surgical site: Status: Acute Plan pt with multiple problems and fluid collection at subcutaneous site around the ileostomy - internally looks ok. Hernia not seeming obstructing around the ostomy. ?etiology of her continued nausea Pending CT guided drainage of fluid on Monday. Cont medical management - mika weaning off pressor and iv antibiotics. Time Spent With Patient Time: Total time managing care of this patient today ____ minutes. Quality Stroke Does the patient have a stroke diagnosis?: No VTE Prior VTE?: No VTE Risk Level:: Medical - moderate - high VTE Device Contraindication: N/A - Device Ordered VTE Drug Contraindication: N/A - Med Ordered
[2025-05-04 17:56] LABS: MANUAL DIFF FLAG NO
[2025-05-04 18:03] LABS: Hematocrit 21.3 % (37.0-47.0); Hemoglobin 7.1 g/dl (12.0-16.0); Imm Gran Abs Auto 0.06 X10*3/uL (0.00-0.03); Imm Gran Pct Auto 0.5 % (0.0-0.4); Lymphocytes Absolute Auto 2.7 X10*3/uL (1.2-4.9); Mean Corpuscular HGB Conc 33.3 g/dl (31.0-35.0); Mean Corpuscular Hemoglobin 29.1 pg (27.0-33.0); Mean Corpuscular Volume 87.3 fL (80.0-98.0); NRBC Abs Auto 0.000 X10*3/uL (0.0-0.012); NRBC Pct Auto 0.0 /100WBC (0.0-0.2); Platelet Count 132 X10*3/uL (160-400); Red Blood Count 2.44 X10*6/uL (4.20-5.50); White Blood Count 11.3 X10*3/uL (4.8-10.8)
[2025-05-04 18:17] LABS: Anion Gap 15 (12-20); Blood Urea Nitrogen 5 mg/dL (9-16); Calcium 8.0 mg/dL (8.4-10.2); Carbon Dioxide 20 mmol/L (22-29); Chloride 105 mmol/L (96-108); Creatinine Clr Calc Pharmacy 61.0; Estimated Glomerular Filt Rate > 60; Magnesium 1.8 mg/dL (1.6-2.6); Potassium 4.0 mmol/L (3.3-5.1); Sodium 136 mmol/L (135-145)
[2025-05-05] VITALS (23 sets, daily range): BP systolic 90–135; BP diastolic 49–76; PULSE 80–110; RESP 10–20; TEMP 35.9–37; O2SAT 96–100
[2025-05-05] MEDS: metroNIDAZOLE/NS 500 MG/100 ML PIGGYBACK 100 MG IV ×3 (01:36→16:45)
[2025-05-05] MEDS: cefEPime HCl/D5W 2 GM/50 ML PIGGYBACK IV ×3 (01:36→18:10)
[2025-05-05] MEDS: Linezolid/D5W 600 MG/300 ML PIGGYBACK 300 MG IV ×2 (03:17→15:04)
[2025-05-05 04:30] LABS: MANUAL DIFF FLAG NO
[2025-05-05 04:32] LABS: Hematocrit 22.6 % (37.0-47.0); Hemoglobin 7.4 g/dl (12.0-16.0); Imm Gran Abs Auto 0.05 X10*3/uL (0.00-0.03); Imm Gran Pct Auto 0.4 % (0.0-0.4); Lymphocytes Absolute Auto 2.5 X10*3/uL (1.2-4.9); Mean Corpuscular HGB Conc 32.7 g/dl (31.0-35.0); Mean Corpuscular Hemoglobin 28.6 pg (27.0-33.0); Mean Corpuscular Volume 87.3 fL (80.0-98.0); NRBC Abs Auto 0.000 X10*3/uL (0.0-0.012); NRBC Pct Auto 0.0 /100WBC (0.0-0.2); Platelet Count 120 X10*3/uL (160-400); Red Blood Count 2.59 X10*6/uL (4.20-5.50); White Blood Count 12.1 X10*3/uL (4.8-10.8)
[2025-05-05 04:55] LABS: Albumin Level 3.3 g/dL (3.5-5.0); Anion Gap 16 (12-20); Blood Urea Nitrogen 6 mg/dL (9-16); Calcium 7.8 mg/dL (8.4-10.2); Carbon Dioxide 17 mmol/L (22-29); Chloride 106 mmol/L (96-108); Creatinine Clr Calc Pharmacy 60.3; Estimated Glomerular Filt Rate > 60; Magnesium 1.6 mg/dL (1.6-2.6); Potassium 3.6 mmol/L (3.3-5.1); Sodium 135 mmol/L (135-145)
[2025-05-05] MEDS: Potassium Phosphate/NS 15 MMOL/250 ML PLAST..BAG 62.5 MMOL IV ×2 (06:25→10:25)
[2025-05-05] MEDS: 0.9 % Sodium Chloride Flush 3 ML SYRINGE IVFLUSH ×3 (08:53→21:03)
[2025-05-05] MEDS: Albumin Human 25 % 50 ML 100 ML IV (09:17)
[2025-05-05] MEDS: Calcium Gluconate/NaCl,Iso-Osm 1 GM/50 ML PLAST..BAG IV (10:15)
--- NOTE | 2025-05-05 10:29 | P.PNCC_ITS ---
Subjective Subjective Date of Service: 05/05/25 Interval History: 65-year-old lady with underlying diastolic dysfunction, coronary artery disease, IBS, paroxysmal AFib, perforated colon secondary to diverticulitis status post colectomy with hernia repair, revision colostomy and conversant [place] [facility] [place] further complicated by chronic intra-abdominal abscess requiring multiple admissions and draining admitted on 04/27/2025 with suspicion enterocutaneous fistula drainage, noted to be an infected hematoma with spontaneous drainage, and hypotension. Patient managed with empiric antibiotics and evaluated by General surgery with no surgical procedures planned. Hospital course significant for spontaneous drainage of one of abscesses with consideration for additional transcutaneous drainage ongoing. Patient has been off pressor support for 48 hours. No events overnight. Critical Care Time (minutes): 0 Physical Exam 2 Vital Signs: Vital Signs: Last Vital Signs Temp 96.7 F L 05/05/25 10:00 Pulse 92 05/05/25 10:23 Resp 14 05/05/25 10:00 BP 111/62 05/05/25 10:23 Pulse Ox 99 05/05/25 10:00 O2 Del Method Room Air 05/05/25 10:00 BMI result Body Mass Index 26.0 Const: General: no acute distress, alert and awake Eyes: Sclerae: sclerae normal EOM: EOMs intact bilaterally Neck: Neck: Yes no lymphadenopathy, Yes trachea midline and Yes supple Resp: Effort & Inspection: normal respiratory effort and no respiratory distress Auscultation: clear to auscultation bilaterally Cardio: Rate: regular rate Rhythm: regular rhythm Heart sounds: no gallops, no murmurs and no rubs GI: Other: Colostomy with output, MIKI drain with bilious drainage Palpation (GI): Soft to palpation and Other GI palpation findings present (Mild suprapubic tenderness, no rebound, no guarding) Auscultation: normal bowel sounds Extrem: General: Yes no pedal edema, No clubbing and No cyanosis Objective Data Labs 05/05/25 04:14 05/05/25 04:14 Labs: Laboratory Results - last 24 hr 05/04/25 05/05/25 17:48 04:14 WBC 11.3 H 12.1 H RBC 2.44 L 2.59 L Hgb 7.1 L 7.4 L Hct 21.3 L 22.6 L MCV 87.3 87.3 MCH 29.1 28.6 MCHC 33.3 32.7 RDW 16.1 H 15.9 Plt Count 132 L 120 L MPV 9.5 9.0 L Immature Gran % (Auto) 0.5 H 0.4 Neut % (Auto) 67.5 71.7 Lymph % (Auto) 23.9 20.5 [place] % (Auto) 4.1 3.1 Eos % (Auto) 2.8 3.2 Baso % (Auto) 1.2 1.1 Lymph # (Auto) 2.7 2.5 [place] # (Auto) 0.5 0.4 Eos # (Auto) 0.3 0.4 Baso # (Auto) 0.1 0.1 Abs Immat Gran (auto) 0.06 H 0.05 H Absolute Neuts (auto) 7.6 8.7 H Absolute Nucleated RBC 0.000 0.000 Nucleated RBC % (auto) 0.0 0.0 Sodium 136 135 Potassium 4.0 3.6 Chloride 105 106 Carbon Dioxide 20 L 17 L Anion Gap 15 16 BUN 5 L 6 L Creatinine 0.80 0.81 Estim Creat Clear Calc 61.0 60.3 Estimated GFR > 60 > 60 Random Glucose 82 102 Calcium 8.0 L D 7.8 L Phosphorus 3.2 2.4 L Magnesium 1.8 1.6 Albumin 3.3 L Microbiology Microbiology Results: Microbiology 04/30/25 Unknown Abdomen - Abdominal Gram Stain - Final 04/30/25 Unknown Abdomen - Abdominal Routine Culture - Final Klebsiella oxytoca Escherichia coli 04/27/25 11:22 Blood - Venous Blood Culture - Final No growth after 5 days. 04/27/25 11:22 Blood - Venous Blood Culture - Final No growth after 5 days. Progress Note: A&P Assessment and plan (1) Intra-abdominal abscess post-procedure: Status: Resolved (2) CAD (coronary artery disease): Status: Acute (3) Atrial flutter: Status: Acute (4) Ileostomy in place: Status: Acute Plan Assessment: 65-year-old lady with underlying CAD, diastolic dysfunction Regis, complicated abdominal surgical history including perforated diverticulitis status post resection with hernia repair and colostomy revised to ileostomy further complicated by chronic intra-abdominal abscesses presented with infected abdominal hematoma drainage Plan: Neuro: No acute issues. Cardiac: No acute issues. Underlying coronary artery disease and AFlutter. Pulmonary: No acute issues. Renal: No acute issues. Endo: No acute issues. GI: Intra-abdominal abscesses after remote surgical procedure. Infected abdominal hematoma, now with spontaneous drainage. General surgery service care appreciated. Continues on broad-spectrum antibiotics. ID: Broad-spectrum antibiotics as per GI suction. Heme/Onc: No acute issues. Psych: No acute issues. Miscellaneous: No acute issues. Prophylaxis: Heparin Diet: Regular Quality Stroke Does the patient have a stroke diagnosis?: No VTE Prior VTE?: No VTE Risk Level:: Medical - moderate - high VTE Device Contraindication: N/A - Device Ordered VTE Drug Contraindication: N/A - Med Ordered
--- NOTE | 2025-05-05 20:50 | PM.EVENT ---
Event Note Date of Service: 05/05/25 Event Note: Assumed care from ICU doctor, plan of care discussed, See ICU note for A/P for today Time Spent With Patient Time: Total time managing care of this patient today ____ minutes.
[2025-05-05 23:57] LABS: Glucose, Whole Blood 65 mg/dL (60-115)
[2025-05-06] VITALS (8 sets, daily range): BP systolic 98–126; BP diastolic 57–65; PULSE 89–107; RESP 18; TEMP 36.1–36.9; O2SAT 98–100; BMI 25.9
[2025-05-06 00:22] LABS: Hematocrit 21.4 % (37.0-47.0); Hemoglobin 7.4 g/dl (12.0-16.0); Mean Corpuscular HGB Conc 34.6 g/dl (31.0-35.0); Mean Corpuscular Hemoglobin 29.4 pg (27.0-33.0); Mean Corpuscular Volume 84.9 fL (80.0-98.0); NRBC Abs Auto 0.000 X10*3/uL (0.0-0.012); NRBC Pct Auto 0.0 /100WBC (0.0-0.2); Platelet Count 104 X10*3/uL (160-400); Red Blood Count 2.52 X10*6/uL (4.20-5.50); White Blood Count 12.7 X10*3/uL (4.8-10.8)
[2025-05-06 00:27] LABS: INTERNATIONAL NORM RATIO 1.9 (0.9-1.1); Prothrombin Time 22.2 SEC (10.9-12.4)
[2025-05-06] MEDS: iohexoL 350 MG/ML 100 ML INFUS..BTL 70 ML IV (00:38)
[2025-05-06] MEDS: metroNIDAZOLE/NS 500 MG/100 ML PIGGYBACK 100 MG IV ×3 (01:01→17:56)
--- NOTE | 2025-05-06 01:10 | P.EN_ITS ---
Event Note Date of Service: 05/06/25 Event Note: Patient started to experience difficulty speaking that started last night around 8 pm. She denied associated focal weakness, headache, acute visual disturbances, facial droop or numbness. She also denied any acute cardiopulmonary or gastrointestinal symptoms. Pupils are equally round reactive to light. Dysarthria noted. Patient seems to be comprehending speech. Cardiopulmonary exam is unremarkable. Head CT scan obtain stat and showed no acute disease in t he brain. H&H stat is 7.4 (same as prior). INR is 1.9. Recent echo April 29 showed EF of 39 %, no significant valve disease. No aspirin given due to recent events of hemorrhagic shock. Head and neck CTA are still pending. We will request Neurology consult. Time Spent With Patient Time: Total time managing care of this patient today ____ minutes.
--- NOTE | 2025-05-06 01:25 | P.PNGS_ITS ---
Subjective Subjective Date of Service: 05/05/25 Interval history: pt out of ICU but feeling tired and nauseated again Physical Exam 2 Vital Signs: Vital Signs: Last Vital Signs Temp 97.2 F 05/05/25 23:38 Pulse 96 05/05/25 23:38 Resp 18 05/05/25 23:38 BP 113/58 L 05/05/25 23:38 Pulse Ox 98 05/05/25 23:38 O2 Del Method Room Air 05/05/25 23:38 BMI result Body Mass Index 26.0 Const: Other: pt tired and lethargic today GI: Other: abdo soft nontender, dressing intact with some drainage Objective Data Active Medications Calcium Carbonate (Calcium Carbonate 750 Mg Tab.Chew) 750 mg PO Q4H PRN PRN Reason: Heartburn Last Admin: 05/04/25 12:16 Dose: 750 mg Documented By: KASSY Heparin Sodium (Porcine) (Heparin Sodium,Porcine 5,000 Unit/Ml Vial) 5,000 unit SUBCUT Q8H [facility] Last Admin: 05/05/25 16:49 Dose: 5,000 unit Documented By: LOUISA Hydromorphone HCl (Hydromorphone Hcl 1 Mg/Ml Syringe) 1 mg IVPUSH Q4H PRN; Protocol PRN Reason: Pain, Severe (Pain Scale 7-10) Last Admin: 05/05/25 18:30 Dose: 1 mg Documented By: LOUISA Linezolid (Zyvox/D5w) 600 mg in 300 mls @ 300 mls/hr IV Q12H [facility] Last Infusion: 05/05/25 16:40 Dose: Infused Documented By: LOUISA Metronidazole (Flagyl) 500 mg in 100 mls @ 100 mls/hr IV Q8H [facility] Last Admin: 05/06/25 01:01 Dose: 100 mls/hr Documented By: ANA PAULA Cefepime HCl (Maxipime) 2 gm in 50 mls @ 100 mls/hr IV Q8H [facility] Last Infusion: 05/05/25 19:12 Dose: Infused Documented By: LAZARODIELSY Lactated Ringer's (Lr) 500 mls @ 999 mls/hr IV .Q31M [facility] Stop: 05/06/25 01:53 Lidocaine (Lidocaine 4 % Patch Adh..Patch) 1 patch TRANSDERMA DAILY [facility]; Protocol Last Admin: 05/05/25 08:52 Dose: Not Given Documented By: LUIS Non-Admin Reason: per pt Lorazepam (Lorazepam 0.5 Mg Tablet) 0.5 mg PO Q4H PRN PRN Reason: Nausea and Vomiting Last Admin: 05/05/25 15:20 Dose: 0.5 mg Documented By: LUIS Midodrine (Midodrine Hcl 10 Mg Tablet) 10 mg PO TID [facility] Last Admin: 05/05/25 21:03 Dose: 10 mg Documented By: ANA PAULA Ondansetron HCl (Ondansetron Hcl 4 Mg/2 Ml Vial) 4 mg IVPUSH Q8H PRN PRN Reason: Nausea and Vomiting Last Admin: 05/06/25 01:01 Dose: 4 mg Documented By: ANA PAULA Pantoprazole Sodium (Pantoprazole Sodium 40 Mg/10 Ml Vial) 40 mg IVPUSH DAILY@0630 [facility] Last Admin: 05/05/25 06:21 Dose: 40 mg Documented By: CARITO Sodium Chloride (0.9 % Sodium Chloride Flush 3 Ml Syringe) 3 ml IVFLUSH QSHIFT [facility] Last Admin: 05/05/25 21:03 Dose: 3 ml Documented By: ANA PAULA Labs 05/06/25 00:07 05/05/25 04:14 Labs: Laboratory Results - last 24 hr 05/05/25 05/05/25 05/06/25 04:14 23:53 00:07 MCV 87.3 84.9 MCH 28.6 29.4 MCHC 32.7 34.6 RDW 15.9 16.0 Plt Count 120 L 104 L MPV 9.0 L 8.8 L Immature Gran % (Auto) 0.4 Neut % (Auto) 71.7 Lymph % (Auto) 20.5 [place] % (Auto) 3.1 Eos % (Auto) 3.2 Baso % (Auto) 1.1 Lymph # (Auto) 2.5 [place] # (Auto) 0.4 Eos # (Auto) 0.4 Baso # (Auto) 0.1 Abs Immat Gran (auto) 0.05 H Absolute Neuts (auto) 8.7 H Absolute Nucleated RBC 0.000 0.000 Nucleated RBC % (auto) 0.0 0.0 PT 22.2 H INR 1.9 H Anion Gap 16 Estim Creat Clear Calc 60.3 Estimated GFR > 60 POC Glucose 65 Random Glucose 102 Calcium 7.8 L Phosphorus 2.4 L Magnesium 1.6 Albumin 3.3 L Procedures Date of Service Date of Service: 05/06/25 Progress Note: A&P Assessment and plan (1) Fluid collection at surgical site: Start date: 05/06/25 Status: Acute Plan pt with abdominal wall fluid/abscess - spontaneously drained yesterday and she is doing ok - opened and packed- the pt is tired right now just came from icu - will have nursing team repack later. She is scheduled for CT scan with possible drainage but now that this has drained there may not be fluid to be drained. will see on Ct scan on Monday Time Spent With Patient Time: Total time managing care of this patient today ____ minutes. Quality Stroke Does the patient have a stroke diagnosis?: No VTE Prior VTE?: No VTE Risk Level:: Medical - moderate - high VTE Device Contraindication: N/A - Device Ordered VTE Drug Contraindication: N/A - Med Ordered
[2025-05-06 01:40] LABS: Glucose, Whole Blood 66 mg/dL (60-115)
[2025-05-06] MEDS: Lactated Ringers 500 ML 999 ML IV (01:42)
[2025-05-06] MEDS: cefEPime HCl/D5W 2 GM/50 ML PIGGYBACK IV ×3 (02:17→17:54)
[2025-05-06 02:33] LABS: Glucose, Whole Blood 63 mg/dL (60-115)
[2025-05-06 02:33] LABS: Glucose, Whole Blood 67 mg/dL (60-115)
[2025-05-06] MEDS: Linezolid/D5W 600 MG/300 ML PIGGYBACK 300 MG IV ×2 (03:44→16:49)
[2025-05-06 07:26] LABS: Glucose, Whole Blood 88 mg/dL (60-115)
[2025-05-06 07:43] LABS: Glucose, Whole Blood 97 mg/dL (60-115)
--- NOTE | 2025-05-06 08:00 | ECG_ITS ---
Test Reason : check qt Blood Pressure : */* mmHG Vent. Rate : 101 BPM Atrial Rate : 101 BPM P-R Int : 164 ms QRS Dur : 82 ms QT Int : 308 ms P-R-T Axes : 45 24 263 degrees QTcB Int : 399 ms Sinus tachycardia Low voltage QRS Nonspecific T wave abnormality Abnormal ECG When compared with ECG of 02-May-2025 09:31, QT has shortened Referred By: Etta Garcia Electronically Signed By: Russell Hummel
[2025-05-06 08:07] LABS: MANUAL DIFF FLAG NO
[2025-05-06 08:14] LABS: Hematocrit 22.9 % (37.0-47.0); Hemoglobin 7.7 g/dl (12.0-16.0); Imm Gran Abs Auto 0.06 X10*3/uL (0.00-0.03); Imm Gran Pct Auto 0.6 % (0.0-0.4); Lymphocytes Absolute Auto 1.4 X10*3/uL (1.2-4.9); Mean Corpuscular HGB Conc 33.6 g/dl (31.0-35.0); Mean Corpuscular Hemoglobin 28.7 pg (27.0-33.0); Mean Corpuscular Volume 85.4 fL (80.0-98.0); NRBC Abs Auto 0.020 X10*3/uL (0.0-0.012); NRBC Pct Auto 0.2 /100WBC (0.0-0.2); Red Blood Count 2.68 X10*6/uL (4.20-5.50); White Blood Count 9.3 X10*3/uL (4.8-10.8)
[2025-05-06 08:15] LABS: Platelet Count 94 X10*3/uL (160-400)
--- NOTE | 2025-05-06 08:30 | PM.PNGS ---
Subjective Subjective Date of Service: 05/06/25 <Gabi Victoria PA-C - Last Filed: 05/06/25 08:43> 05/06/25 <Gideon Ruvalcaba MD - Last Filed: 05/06/25 14:08> Interval history: Transferred out of ICU over the weekend. Developed expressive aphasia last night. Had head/neck CTA, no acute disease or high grade carotid stenosis. Unable to speak sentences this morning. <Gabi Victoria PA-C - Last Filed: 05/06/25 08:43> Physical Exam Vital Signs: Vital Signs: Last Vital Signs Temp 97.4 F 05/06/25 07:43 Pulse 94 05/06/25 07:43 Resp 18 05/06/25 07:43 BP 98/60 05/06/25 07:43 Pulse Ox 100 05/06/25 07:43 O2 Del Method Room Air 05/06/25 07:43 BMI result Body Mass Index 25.9 <Gabi Victoria PA-C - Last Filed: 05/06/25 08:43> Const: General: comfortable, no acute distress and alert <Gabi Victoria PA-C - Last Filed: 05/06/25 08:43> Resp: Effort & Inspection: normal respiratory effort <STAN Wilder Last Filed: 05/06/25 08:43> GI: Other: midline open wound packing changed, no significant drainage, no surrounding erythema ostomy with good output <Gabi Victoria PA-C - Last Filed: 05/06/25 08:43> Palpation (GI): Soft to palpation, nontender and no guarding <Gabi Victoria PA-C - Last Filed: 05/06/25 08:43> Neuro: Other: alert moves extremities <STAN Wilder Last Filed: 05/06/25 08:43> Objective Data Active Medications Calcium Carbonate (Calcium Carbonate 750 Mg Tab.Chew) 750 mg PO Q4H PRN PRN Reason: Heartburn Last Admin: 05/04/25 12:16 Dose: 750 mg Documented By: KASSY Dextrose (Dextrose 50 % 25 Gm/50 Ml Syringe) 25 gm IVPUSH Q15M PRN; Protocol PRN Reason: per Hypoglycemia Standing Ord. Glucose (Glucose Gel 15 Gm Gel..Gram.) 15 gm PO Q15M PRN; Protocol PRN Reason: per Hypoglycemia Standing Ord. Heparin Sodium (Porcine) (Heparin Sodium,Porcine 5,000 Unit/Ml Vial) 5,000 unit SUBCUT Q8H [facility] Last Admin: 05/06/25 01:46 Dose: Not Given Documented By: ANA PAULA Non-Admin Reason: Physician Held Med Hydromorphone HCl (Hydromorphone Hcl 1 Mg/Ml Syringe) 1 mg IVPUSH Q4H PRN; Protocol PRN Reason: Pain, Severe (Pain Scale 7-10) Last Admin: 05/05/25 18:30 Dose: 1 mg Documented By: LOUISA Linezolid (Zyvox/D5w) 600 mg in 300 mls @ 300 mls/hr IV Q12H [facility] Last Infusion: 05/06/25 04:57 Dose: Infused Documented By: ANA PAULA Metronidazole (Flagyl) 500 mg in 100 mls @ 100 mls/hr IV Q8H [facility] Last Infusion: 05/06/25 02:25 Dose: Infused Documented By: ANA PAULA Cefepime HCl (Maxipime) 2 gm in 50 mls @ 100 mls/hr IV Q8H [facility] Last Infusion: 05/06/25 02:54 Dose: Infused Documented By: ANA PAULA Dextrose/Sodium Chloride (D5ns) 1,000 mls @ 80 mls/hr IVCONT .[id number] [facility] Stop: 05/06/25 15:14 Last Admin: 05/06/25 02:46 Dose: 80 mls/hr Documented By: ANA PAULA Lidocaine (Lidocaine 4 % Patch Adh..Patch) 1 patch TRANSDERMA DAILY [facility]; Protocol Last Admin: 05/05/25 08:52 Dose: Not Given Documented By: LUIS Non-Admin Reason: per pt Lorazepam (Lorazepam 0.5 Mg Tablet) 0.5 mg PO Q4H PRN PRN Reason: Nausea and Vomiting Last Admin: 05/05/25 15:20 Dose: 0.5 mg Documented By: LUIS Midodrine (Midodrine Hcl 10 Mg Tablet) 10 mg PO TID [facility] Last Admin: 05/05/25 21:03 Dose: 10 mg Documented By: ANA PAULA Ondansetron HCl (Ondansetron Hcl 4 Mg/2 Ml Vial) 4 mg IVPUSH Q8H PRN PRN Reason: Nausea and Vomiting Last Admin: 05/06/25 01:01 Dose: 4 mg Documented By: ANA PAULA Pantoprazole Sodium (Pantoprazole Sodium 40 Mg/10 Ml Vial) 40 mg IVPUSH DAILY@0630 [facility] Last Admin: 05/06/25 05:48 Dose: 40 mg Documented By: ANA PAULA Sodium Chloride (0.9 % Sodium Chloride Flush 3 Ml Syringe) 3 ml IVFLUSH QSHIFT [facility] Last Admin: 05/05/25 21:03 Dose: 3 ml Documented By: ANA PAULA <Gabi Victoria PA-C - Last Filed: 05/06/25 08:43> Labs CBC & Chem 7: 05/06/25 07:25 05/06/25 07:25 <Gabi Victoria PA-C - Last Filed: 05/06/25 08:43> Labs: Laboratory Results - last 24 hr 05/05/25 05/06/25 05/06/25 23:53 00:07 01:37 MCV 84.9 MCH 29.4 MCHC 34.6 RDW 16.0 Plt Count 104 L MPV 8.8 L Immature Gran % (Auto) Neut % (Auto) Lymph % (Auto) [place] % (Auto) Eos % (Auto) Baso % (Auto) Lymph # (Auto) [place] # (Auto) Eos # (Auto) Baso # (Auto) Abs Immat Gran (auto) Absolute Neuts (auto) Absolute Nucleated RBC 0.000 Nucleated RBC % (auto) 0.0 PT 22.2 H INR 1.9 H POC Glucose 65 66 05/06/25 05/06/25 05/06/25 02:27 02:29 04:03 MCV MCH MCHC RDW Plt Count MPV Immature Gran % (Auto) Neut % (Auto) Lymph % (Auto) [place] % (Auto) Eos % (Auto) Baso % (Auto) Lymph # (Auto) [place] # (Auto) Eos # (Auto) Baso # (Auto) Abs Immat Gran (auto) Absolute Neuts (auto) Absolute Nucleated RBC Nucleated RBC % (auto) PT INR POC Glucose 67 63 88 05/06/25 05/06/25 07:25 07:38 MCV 85.4 MCH 28.7 MCHC 33.6 RDW 16.2 H Plt Count 94 L MPV 9.3 L Immature Gran % (Auto) 0.6 H Neut % (Auto) 77.8 H Lymph % (Auto) 15.4 L [place] % (Auto) 3.2 Eos % (Auto) 1.9 Baso % (Auto) 1.1 Lymph # (Auto) 1.4 [place] # (Auto) 0.3 Eos # (Auto) 0.2 Baso # (Auto) 0.1 Abs Immat Gran (auto) 0.06 H Absolute Neuts (auto) 7.3 Absolute Nucleated RBC 0.020 H Nucleated RBC % (auto) 0.2 PT INR POC Glucose 97 <Gabi Victoria PA-C - Last Filed: 05/06/25 08:43> Procedures Date of Service Date of Service: 05/06/25 <Gabi Victoria PA-C - Last Filed: 05/06/25 08:43> 05/06/25 <Gideon Ruvalcaba MD - Last Filed: 05/06/25 14:08> Progress Note: A&P Assessment and plan (1) Abscess: Status: Acute <Gabi Victoria PA-C - Last Filed: 05/06/25 08:43> Assessment and Plan: Now has significant expressive aphasia Able to answer yes or no,and 1 word responses Midline wound opened up and drained spontaneously Dressings changed Continue wound care Investigate for etiology of severe aphasia Abdomen is soft and benign Stoma functioning well Push oral intake Seen and examined independently <Gideon Ruvalcaba MD - Last Filed: 05/06/25 14:08> Assessment and Plan: Plan was initially for CT guided drainage of abdominal wall fluid collection today however the midline wound opened up again over the weekend. May be able to hold off pending on CT. Continue local daily wound care with packing to wound and fluffs, tape. She has expressive aphasia and hospitalists consulted neurology. Head CT/head neck CTA negative for intracranial pathology, severe carotid stenosis. <Gabi Victoria PA-C - Last Filed: 05/06/25 08:43> Time Spent With Patient Time: Total time managing care of this patient today ____ minutes. <Gabi Victoria PA-C - Last Filed: 05/06/25 08:43> Quality Stroke Does the patient have a stroke diagnosis?: No <Gabi Victoria PA-C - Last Filed: 05/06/25 08:43> VTE Prior VTE?: No <Gabi Victoria PA-C - Last Filed: 05/06/25 08:43> VTE Risk Level:: Medical - moderate - high <Gabi Victoria PA-C - Last Filed: 05/06/25 08:43> VTE Device Contraindication: N/A - Device Ordered <Gabi Victoria PA-C - Last Filed: 05/06/25 08:43> VTE Drug Contraindication: N/A - Med Ordered <Gabi Victoria PA-C - Last Filed: 05/06/25 08:43>
[2025-05-06 08:40] LABS: Alanine Aminotransferase < 6 U/L (0-31); Albumin Level 3.4 g/dL (3.5-5.0); Alkaline Phosphatase 79 U/L (39-117); Anion Gap 15 (12-20); Aspartate Amino Transferase 21 U/L (5-31); Blood Urea Nitrogen 6 mg/dL (9-16); Calcium 8.0 mg/dL (8.4-10.2); Carbon Dioxide 17 mmol/L (22-29); Chloride 108 mmol/L (96-108); Creatinine Clr Calc Pharmacy 56.6; Estimated Glomerular Filt Rate > 60; Magnesium 1.4 mg/dL (1.6-2.6); Potassium 3.5 mmol/L (3.3-5.1); Sodium 136 mmol/L (135-145); Total Protein 5.4 g/dL (6.5-8.0)
[2025-05-06] MEDS: 0.9 % Sodium Chloride Flush 3 ML SYRINGE IVFLUSH ×3 (09:30→20:03)
--- NOTE | 2025-05-06 10:46 | HO.WOUND ---
Ostomy and Wound Consult: Follow up 65yr old?female admitted [place] [facility] [place] - See progress notes and H&P for detailed history.? Arrival to bedside and chart review reveals patient has had minimal leaking due to her ostomy. Suspected Abscess sites are treated with dry dressings and are followed by General Surgery. Seen and dressing changed this morning by General Surgery team per direct care nurse. Patient has been experiencing neurological symptoms and providers are aware - workup currently underway. Patient was having trouble word finding and was frustrated - she did request multiple times to have her brother Chad and her daughter called as she needed them there with her. Will reach out to Case mgt and provider to notify family of requests. Ostomy pouch assessed - no leaking noted at this time. Wound consult placed for Wound near ostomy and difficulty pouching.? Buttock not assessed at today visit - no new topical recommendations needed per direct care team for buttock. Patient reports the has had to change her ostomy pouch several times today and recently has not been getting as much wear time as in past. Pouch assessed silent leak noted at 3 o'clock. Patient agreeable to pouch change. Pouch removed back of pouch assessed and leak confirmed to 3 o'clock location. She appears to have a crease that forms to this location. The patient was agreeable to me filling with Barrier Strip paste. See photo below. 3 o'clock crease Stoma with barrier strip paste applied prior to pouch assessment. Followed by Convex pouch application - template left at bedside. Completed with Brava Elastic C strips to extend the pouch edge in an effort to minimize leaking. Patient refused belt application. Abdominal abscess outside of ileostomy bilateral site treated and managed by General Surgery team. The dressings were removed and assessed - recommend continue with dry dressing for drainage absorption. Patient with new sites of bulging skin provider ordered CT scan and pending results. Abdominal Abscess / Fistula Sites - Cleanse with NS moist gauze, pat dry. Apply skin prep, cover with dry gauze dressing. Change daily and PRN. Gluteal fold Etiology: ?MASD (Moisture Associated Skin Damage) ?Present on Admission Goals of Treatment: ? Barrier cream and foam in use Recommendations: 1. Turn and Reposition every 2 hours and as needed for patient comfort.? Use pillows or wedges to support off loading positions. 2. Off Load all bony prominences with use of pillows and heel boots if needed.? Apply Preventative foams where needed. ? 3. Monitor for incontinence and moisture control, use barrier creams when needed for prevention and treatment. 4. Provide adequate and supplemental nutrition.? 5. Order low air loss mattress. 6. When applicable maintain blood glucose levels per Providers order. Buttock / Gluteal Fold - Off Load Pressure with Q2 hr turns and use of pillows - Cleanse with PH balance spray or wipes, pat dry. ?Apply thin layer of Triad to wound bed - only pat and dab no scrub and rub when soiling occurs. Reapply thin layer PRN after each episode of incontinence. May use foam if foam is not trapping moisture with in skin fold - if so continue with use of Triad / Barrier cream alone. Abdominal Abscess / Fistula Sites - Cleanse with NS moist gauze, pat dry. Apply skin prep, cover with dry gauze dressing. Change daily and PRN. Ostomy - Use Template for stoma size left at bedside - Apply barrier strip paste around stoma and at the 3 o'clock location to aminta crease. Apply Convex pouch, completed with Brava Elastic C strips to extend the pouch edge in an effort to minimize leaking. Re-consult wound care Nurse for wound deterioration or wound changes.
[2025-05-06 10:51] LABS: Glucose, Whole Blood 115 mg/dL (60-115)
--- NOTE | 2025-05-06 11:17 | PM.NEUROCN ---
History of Present Illness Data of Consult Service Date: 05/06/25 Primary Care Provider: Joi Rebollar MD [facility] Reason for consult: Difficulty speaking 65 years old woman with complex underlying medical history and recent admissions started having difficulty speaking last night. There was no seizure-like episode or focal weakness noted on her face arm or leg. There was no complaint of headache. Initial head CT and CTA did not reveal any explanation. Review of Systems Review of Systems: No headache. [facility] Past Medical History Medical History CAD (coronary artery disease) Atrial flutter History of sigmoidoscopy Multinodular thyroid Chronic vomiting Hypocalcemia Iron deficiency anemia Hyponatremia Hypomagnesemia Acute cholecystitis History of acute cholecystitis History of pancreatitis Pancreatitis Insomnia Bilateral knee pain Polyarthralgia MARKIE (acute kidney injury) Back pain Arthritis History of transfusion of packed red blood cells Anemia Cardiomyopathy MARKIE (acute kidney injury) MARKIE (acute kidney injury) Anxiety Small bowel obstruction Myocardial infarction NSTEMI (non-ST elevated myocardial infarction) NSVT (nonsustained ventricular tachycardia) PVC (premature ventricular contraction) Hypertension Perforated diverticulum Irritable bowel syndrome with constipation Barretts esophagus GERD (gastroesophageal reflux disease) Family History Family History Father Colon cancer Congestive heart failure Paternal Aunt Colon cancer Mother Congestive heart failure Afib Surgical History Surgical History Ileostomy in place History of insertion of tunneled central venous catheter (CVC) with port H/O insertion of cholecystostomy tube Status post embolization of uterine artery S/P colon resection PIC line (peripherally inserted central catheter) removal History of low anterior resection of rectum Status post cardiac catheterization H/O dilation and curettage History of exploratory laparotomy (05/11/23) S/P colostomy Colovesical fistula History of esophagogastroduodenoscopy (EGD) Hx of colonoscopy Social History Social History Household Members: None Housing: House Are you a primary customer care professional to a significant other at home: No Do you presently have visiting nurse or other home services: Yes Unable to assess alcohol history related to: Unknown Alcohol intake: never Comment: Pt refusing bed alarm Patient Tobacco Use Status: Former Tobacco user Tobacco use type: Cigarette Cigarette Packs Per Day: 0.5 Cigarettes Per Day: 10.0 Years Smoked: 25 e-Cigarette/Vaping Use: Former Use Second Hand Smoke Exposure: No Substance Use Type: Marijuana Currently Displaying Signs/Symptoms of Drug Intoxication Withdrawal: No Have you been hit, kicked, punched, or otherwise hurt by someone within the past year? If so, by whom?: No Do you feel safe in your current relationship?: Yes Is there a partner from a previous relationship who is making you feel unsafe now?: No Are you made to feel afraid or neglected: No Advance Directives: Yes Advance Directives on File: Yes Advance Directives Date on File: 12/29/23 Do you have a plan to hurt others: No Plan Recently lost weight without trying: Yes How much weight loss: 24-33 pounds Eating poorly because of decreased appetite: Yes Nutrition screen score: 6 Nutrition Risks: Poor intake 0-25% >4 days Patient : No : No service: No Cognitive needs: No Hearing needs: No Vision needs: Yes Meds Allergies Allergy/AdvReac Type Severity Reaction Status Date / Time clams Allergy Severe Stomach Verified 04/27/25 10:39 Upset clavulanic acid (Augmentin) Allergy Unknown GI, Verified 04/27/25 10:39 Difficulty breathing codeine (CODEINE) Allergy Unknown SENSITIVIT Verified 04/27/25 10:39 Y erythromycin base Allergy Unknown GI, DIFF Verified 04/27/25 10:39 (Erythromycin Base) BREATHING Sulfa (Sulfonamide Allergy Unknown RASH Verified 04/27/25 10:39 Antibiotics) morphine (MORPHINE) AdvReac Severe Difficulty Verified 04/27/25 10:39 Breathing aspirin (Aspirin) AdvReac Mild STOMACH Verified 04/27/25 10:39 UPSET melatonin AdvReac Vomiting Verified 04/27/25 10:39 Active Medications: Current Medications Calcium Carbonate (Calcium Carbonate 750 Mg Tab.Chew) 750 mg PO Q4H PRN PRN Reason: Heartburn Last Admin: 05/04/25 12:16 Dose: 750 mg Dextrose (Dextrose 50 % 25 Gm/50 Ml Syringe) 25 gm IVPUSH Q15M PRN; Protocol PRN Reason: per Hypoglycemia Standing Ord. Glucose (Glucose Gel 15 Gm Gel..Gram.) 15 gm PO Q15M PRN; Protocol PRN Reason: per Hypoglycemia Standing Ord. Heparin Sodium (Porcine) (Heparin Sodium,Porcine 5,000 Unit/Ml Vial) 5,000 unit SUBCUT Q8H [facility] Last Admin: 05/06/25 09:27 Dose: 5,000 unit Hydromorphone HCl (Hydromorphone Hcl 1 Mg/Ml Syringe) 1 mg IVPUSH Q4H PRN; Protocol PRN Reason: Pain, Severe (Pain Scale 7-10) Last Admin: 05/05/25 18:30 Dose: 1 mg Linezolid (Zyvox/D5w) 600 mg in 300 mls @ 300 mls/hr IV Q12H [facility] Last Infusion: 05/06/25 04:57 Dose: Infused Metronidazole (Flagyl) 500 mg in 100 mls @ 100 mls/hr IV Q8H [facility] Last Infusion: 05/06/25 10:31 Dose: Infused Cefepime HCl (Maxipime) 2 gm in 50 mls @ 100 mls/hr IV Q8H [facility] Last Infusion: 05/06/25 10:00 Dose: Infused Dextrose/Sodium Chloride (D5ns) 1,000 mls @ 80 mls/hr IVCONT .[id number] [facility] Stop: 05/06/25 15:14 Last Admin: 05/06/25 02:46 Dose: 80 mls/hr Lidocaine (Lidocaine 4 % Patch Adh..Patch) 1 patch TRANSDERMA DAILY [facility]; Protocol Last Admin: 05/06/25 09:30 Dose: Not Given Lorazepam (Lorazepam 0.5 Mg Tablet) 0.5 mg PO Q4H PRN PRN Reason: Nausea and Vomiting Last Admin: 05/05/25 15:20 Dose: 0.5 mg Midodrine (Midodrine Hcl 10 Mg Tablet) 10 mg PO TID [facility] Last Admin: 05/06/25 09:26 Dose: 10 mg Ondansetron HCl (Ondansetron Hcl 4 Mg/2 Ml Vial) 4 mg IVPUSH Q8H PRN PRN Reason: Nausea and Vomiting Last Admin: 05/06/25 10:20 Dose: 4 mg Sodium Chloride (0.9 % Sodium Chloride Flush 3 Ml Syringe) 3 ml IVFLUSH QSHIFT [facility] Last Admin: 05/06/25 09:30 Dose: 3 ml Home Medications ?Medication ?Instructions ?Recorded ?Confirmed ?Last Taken ?Type mirtazapine 15 mg tablet 15 mg PO BEDTIME 11/30/23 04/27/25 03/30/25 History multivitamin with minerals-folic 1 tab PO DAILY 01/07/24 04/27/25 04/27/25 History acid 200 mcg chewable tablet (Multivitamin Gummies) amiodarone 200 mg tablet 200 mg PO DAILY 02/19/25 04/27/25 04/27/25 History apixaban 5 mg tablet (Eliquis) 5 mg PO BID 02/19/25 04/27/25 04/27/25 History colchicine 0.6 mg tablet 0.3 mg PO DAILY 02/19/25 04/27/25 04/27/25 History esomeprazole magnesium 20 mg 20 mg PO DAILY@0630 02/19/25 04/27/25 04/27/25 History capsule,delayed release (Nexium) cyanocobalamin (vitamin B-12) 1,000 mcg PO DAILY 03/31/25 04/27/25 04/27/25 History 1,000 mcg tablet (Vitamin B-12) magnesium oxide 400 mg PO BID 04/25/25 04/27/25 04/27/25 History potassium chloride 10 mEq 10 meq PO BID 04/25/25 04/27/25 04/27/25 History capsule,extended release Physical Exam Vital Signs: Vital Signs: Last Vital Signs Temp 98.5 F 05/06/25 11:13 Pulse 92 05/06/25 11:13 Resp 18 05/06/25 11:13 BP 112/57 L 05/06/25 11:13 Pulse Ox 100 05/06/25 11:13 O2 Del Method Room Air 05/06/25 11:13 BMI result Body Mass Index 25.9 Neuro: Other: She is alert and awake with somewhat decreased spontaneity and fluency of speech but she is able to converse, name, repeat, comprehend and follow commands. Face is symmetrical. Visual bryan are full. There was mild bilateral as to risks. Deep tendon reflexes are trace to 1+ with flexor plantars. Affect is flat. Results Labs 05/06/25 07:25 05/06/25 07:25 Labs: Short CBC 05/06/25 05/06/25 Range/Units 00:07 07:25 WBC 12.7 H 9.3 (4.8-10.8) X10*3/uL Hgb 7.4 L 7.7 L (12.0-16.0) g/dl Hct 21.4 L 22.9 L (37.0-47.0) % Plt Count 104 L 94 L (160-400) X10*3/uL BMP 05/06/25 07:25 Sodium 136 Potassium 3.5 Chloride 108 Carbon Dioxide 17 L BUN 6 L Creatinine 0.86 Calcium 8.0 L Liver Function 05/06/25 Range/Units 07:25 Total Bilirubin 0.8 (0.0-1.0) mg/dL AST 21 (5-31) U/L ALT < 6 (0-31) U/L Alkaline Phosphatase 79 (39-117) U/L Albumin 3.4 L (3.5-5.0) g/dL Head CT and CTA did not reveal any acute pathology. Microbiology Microbiology Results: Microbiology 04/30/25 Unknown Abdomen - Abdominal Gram Stain - Final 04/30/25 Unknown Abdomen - Abdominal Routine Culture - Final Klebsiella oxytoca Escherichia coli 04/27/25 11:22 Blood - Venous Blood Culture - Final No growth after 5 days. 04/27/25 11:22 Blood - Venous Blood Culture - Final No growth after 5 days. Assessment and Plan (1) Mild aphasia: Status: Acute 65 years old woman with complex acute medical issues including abdominal area infection developed difficulty speaking yesterday. On examination, she has mild features of motor aphasia. Differential diagnosis included a small stroke, encephalopathy, seizure disorder, or even psychological stress. Noncontrast MRI of brain is recommended. If that is negative and symptom persist, consider EEG. Procedures Date of Service Date of Service: 05/06/25
--- NOTE | 2025-05-06 14:17 | HO.PM.IMPN ---
Subjective Subjective Date of Service: 05/06/25 Interval History: Pt seen this am, appears frustrated has some degree of aphasia, states that she is nauseous, CT H&N -ve for stenosis or stroke, seen by neurology, MRI brain ordered, speech cleared her for diet however pt refusing to eat. Review of Systems -ve except as stated above Physical Exam Exam: Exam: Const: General: cooperati ve, healthy appear ing, comfortable, no acute distress, well developed, a lert, awake and Ph ysically active O rientation/conscio usness: patient or iented x3 Resp: on RA, CTAB Cardio: Rate: regular rate Rhythm: regular rhythm GI: Other: colostomy in place, clean, dry, intact; MIKI dominguez w/ green-brown drainage; R and m idline bandages cl juventino, dry, intact Inspection: No A bdominal wall elizabeth a and No distended Palpation (GI): Soft to palpation, not firm, nontend er, no guarding an d not rigid Skin: General skin exam: no rashes or lesi ons noted Neuro: General: patient o riented x3, tone n ormal, moves all e xtremities, aphasi a noticed Extrem: appreciable 1+ pit ting edema to bila teral shins Psych: Appearance: grossl y normal Vital Signs: Vital Signs: Last Vital Signs Temp 98.5 F 05/06/25 11:13 Pulse 92 05/06/25 11:13 Resp 18 05/06/25 11:13 BP 112/57 L 05/06/25 11:13 Pulse Ox 100 05/06/25 11:13 O2 Del Method Room Air 05/06/25 11:13 BMI result Body Mass Index 25.9 Objective Data Active Medications Calcium Carbonate (Calcium Carbonate 750 Mg Tab.Chew) 750 mg PO Q4H PRN PRN Reason: Heartburn Last Admin: 05/04/25 12:16 Dose: 750 mg Documented By: KASSY Dextrose (Dextrose 50 % 25 Gm/50 Ml Syringe) 25 gm IVPUSH Q15M PRN; Protocol PRN Reason: per Hypoglycemia Standing Ord. Glucose (Glucose Gel 15 Gm Gel..Gram.) 15 gm PO Q15M PRN; Protocol PRN Reason: per Hypoglycemia Standing Ord. Heparin Sodium (Porcine) (Heparin Sodium,Porcine 5,000 Unit/Ml Vial) 5,000 unit SUBCUT Q8H [facility] Last Admin: 05/06/25 09:27 Dose: 5,000 unit Documented By: FAUSTINA Comments: notified about PT/INR; ok for medication to be given Hydromorphone HCl (Hydromorphone Hcl 1 Mg/Ml Syringe) 1 mg IVPUSH Q4H PRN; Protocol PRN Reason: Pain, Severe (Pain Scale 7-10) Last Admin: 05/05/25 18:30 Dose: 1 mg Documented By: LOUISA Linezolid (Zyvox/D5w) 600 mg in 300 mls @ 300 mls/hr IV Q12H [facility] Last Infusion: 05/06/25 04:57 Dose: Infused Documented By: ANA PAULA Metronidazole (Flagyl) 500 mg in 100 mls @ 100 mls/hr IV Q8H [facility] Last Infusion: 05/06/25 10:31 Dose: Infused Documented By: FAUSTINA Cefepime HCl (Maxipime) 2 gm in 50 mls @ 100 mls/hr IV Q8H [facility] Last Infusion: 05/06/25 10:00 Dose: Infused Documented By: FAUSTINA Dextrose/Sodium Chloride (D5ns) 1,000 mls @ 80 mls/hr IVCONT .[id number] [facility] Stop: 05/06/25 15:14 Last Admin: 05/06/25 02:46 Dose: 80 mls/hr Documented By: ANA PAULA Lidocaine (Lidocaine 4 % Patch Adh..Patch) 1 patch TRANSDERMA DAILY [facility]; Protocol Last Admin: 05/06/25 09:30 Dose: Not Given Documented By: FAUSTINA Non-Admin Reason: Patient Refused Lorazepam (Lorazepam 0.5 Mg Tablet) 0.5 mg PO Q4H PRN PRN Reason: Nausea and Vomiting Last Admin: 05/05/25 15:20 Dose: 0.5 mg Documented By: LUIS Midodrine (Midodrine Hcl 10 Mg Tablet) 10 mg PO TID [facility] Last Admin: 05/06/25 09:26 Dose: 10 mg Documented By: FAUSTINA Ondansetron HCl (Ondansetron Hcl 4 Mg/2 Ml Vial) 4 mg IVPUSH Q8H PRN PRN Reason: Nausea and Vomiting Last Admin: 05/06/25 10:20 Dose: 4 mg Documented By: FAUSTINA Sodium Chloride (0.9 % Sodium Chloride Flush 3 Ml Syringe) 3 ml IVFLUSH QSHIFT [facility] Last Admin: 05/06/25 09:30 Dose: 3 ml Documented By: FAUSTINA Labs 05/06/25 07:25 05/06/25 07:25 Labs: Laboratory Results - last 24 hr 05/05/25 05/06/25 05/06/25 23:53 00:07 01:37 MCV 84.9 MCH 29.4 MCHC 34.6 RDW 16.0 Plt Count 104 L MPV 8.8 L Immature Gran % (Auto) Neut % (Auto) Lymph % (Auto) Randolph % (Auto) Eos % (Auto) Baso % (Auto) Lymph # (Auto) Randolph # (Auto) Eos # (Auto) Baso # (Auto) Abs Immat Gran (auto) Absolute Neuts (auto) Absolute Nucleated RBC 0.000 Nucleated RBC % (auto) 0.0 PT 22.2 H INR 1.9 H Anion Gap Estim Creat Clear Calc Estimated GFR POC Glucose 65 66 Random Glucose Calcium Phosphorus Magnesium Total Bilirubin AST ALT Alkaline Phosphatase Total Protein Albumin 05/06/25 05/06/25 05/06/25 02:27 02:29 04:03 MCV MCH MCHC RDW Plt Count MPV Immature Gran % (Auto) Neut % (Auto) Lymph % (Auto) Randolph % (Auto) Eos % (Auto) Baso % (Auto) Lymph # (Auto) Randolph # (Auto) Eos # (Auto) Baso # (Auto) Abs Immat Gran (auto) Absolute Neuts (auto) Absolute Nucleated RBC Nucleated RBC % (auto) PT INR Anion Gap Estim Creat Clear Calc Estimated GFR POC Glucose 67 63 88 Random Glucose Calcium Phosphorus Magnesium Total Bilirubin AST ALT Alkaline Phosphatase Total Protein Albumin 05/06/25 05/06/25 05/06/25 07:25 07:38 10:48 MCV 85.4 MCH 28.7 MCHC 33.6 RDW 16.2 H Plt Count 94 L MPV 9.3 L Immature Gran % (Auto) 0.6 H Neut % (Auto) 77.8 H Lymph % (Auto) 15.4 L Randolph % (Auto) 3.2 Eos % (Auto) 1.9 Baso % (Auto) 1.1 Lymph # (Auto) 1.4 Randolph # (Auto) 0.3 Eos # (Auto) 0.2 Baso # (Auto) 0.1 Abs Immat Gran (auto) 0.06 H Absolute Neuts (auto) 7.3 Absolute Nucleated RBC 0.020 H Nucleated RBC % (auto) 0.2 PT INR Anion Gap 15 Estim Creat Clear Calc 56.6 Estimated GFR > 60 POC Glucose 97 115 Random Glucose 96 Calcium 8.0 L Phosphorus 2.6 L Magnesium 1.4 L* Total Bilirubin 0.8 AST 21 ALT < 6 Alkaline Phosphatase 79 Total Protein 5.4 L Albumin 3.4 L Assessment and Plan (1) Hypotension: Status: Acute (2) Stress-induced cardiomyopathy: Status: Acute (3) CAD (coronary artery disease): Status: Acute (4) Hemorrhagic shock: Status: Acute (5) Mild aphasia: Status: Acute (6) Abscess: Status: Acute Plan 65-year-old lady with underlying diastolic dysfunction, coronary artery disease, IBS, paroxysmal AFib, perforated colon secondary to diverticulitis status post colectomy with hernia repair, revision colostomy and conversant to ileostomy at [facility] in January of 2025 further complicated by chronic intra-abdominal abscess requiring multiple admissions and draining admitted on 04/27/2025 with suspicion enterocutaneous fistula drainage, noted to be an infected hematoma with spontaneous drainage, and hypotension. Patient managed with empiric antibiotics and evaluated by General surgery with no surgical procedures planned. Hospital course significant for spontaneous drainage of one of abscesses with consideration for additional transcutaneous drainage ongoing. Patient has been off pressor support for 48 hours. transferred out of ICU yesterday. Overnight had aphasia, stroke was suspected, CTA H&N -ve, Aphasia new onset last night, able to express herself, but with broken sentences at times, while other times fleuntly completes her sentence, CTH&N -ve . seen by neurology recs brain mri wo if mri -ve, EEG Dysphagia poor appetite zofran ordered for nausea, IVF for now, encourage PO intake s/p hemorrhagic shock: CAD pAfib s/p 1 Unit prbc hold eliquis prior diverticulitis c/b perforation s/p colectomy, c/b intra-abdominal 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, presenting w/ bloody drainage c/f infected hematoma, appreciate general surgery recommendations echo 04/29 suggestive of stress-induced cardiomyopathy; appreciate cardiology recommendations Hb stable for now, cont with Abx cefepime, flagyl and zyvox, ID consult abscess cx kleb and ecoli. MARKIE: resolved DVT px: heparin sc OMN: pending brain MRI, IV Abx ID consult Quality Stroke Does the patient have a stroke diagnosis?: No VTE Prior VTE?: No VTE Risk Level:: Medical - moderate - high VTE Device Contraindication: N/A - Device Ordered VTE Drug Contraindication: N/A - Med Ordered
[2025-05-06 16:13] LABS: Glucose, Whole Blood 101 mg/dL (60-115)
--- NOTE | 2025-05-06 18:03 | MHC.SP.ADU ---
Referring provider: José Miguel Duran Reason for Referral: Swallow, difficulty speaking Type of Treatment: 33428 Evaluation Speech Sound Production WITH Language Date of Plan of Treatment: 05/06/25 Onset of Symptoms/Illness: 05/05/25 Date Treatment Started: 05/06/25 Medical Diagnosis: (1) Hypotension: (2) Stress-induced cardiomyopathy: (3) CAD (coronary artery disease): (4) Hemorrhagic shock: (5) Mild aphasia: (6) Abscess: Primary Speech Language Diagnosis: R47.01 Aphasia Secondary Speech Language Diagnosis: I69.911 Memory deficit History Patient is a 65 year old woman who was initially admitted to the ICU on 04/27/2025 with suspicion enterocutaneous fistula drainage, noted to be an infected hematoma with spontaneous drainage, and hypotension. Hospital course significant for spontaneous drainage of one of abscesses with consideration for additional transcutaneous drainage ongoing. Patient transferred out of ICU on 05/04, on 05/05 had sudden onset of difficulty expressing herself, struggling for words. Patient has been seen for a head CT and a head and neck CT, all of which were negative for cva or intercranial process. Neurology assessed her 05/06, diagnosed mild aphasia and recommended brain scan. This morning as well, patient had difficulty taking meds, coughed and choked on administration, swallow assessment also requested with that assessment included in this note. Medical History: History of sigmoidoscopy Multinodular thyroid Chronic vomiting Hypocalcemia Iron deficiency anemia Hyponatremia Hypomagnesemia Acute cholecystitis Atrial flutter CAD (coronary artery disease) History of acute cholecystitis History of pancreatitis Pancreatitis Insomnia Bilateral knee pain Polyarthralgia MARKIE (acute kidney injury) Back pain Arthritis History of transfusion of packed red blood cells Anemia Cardiomyopathy MARKIE (acute kidney injury) MARKIE (acute kidney injury) Anxiety Small bowel obstruction Myocardial infarction NSTEMI (non-ST elevated myocardial infarction) NSVT (nonsustained ventricular tachycardia) PVC (premature ventricular contraction) Hypertension Perforated diverticulum Irritable bowel syndrome with constipation Barretts esophagus GERD (gastroesophageal reflux disease) Recent Hospitalizations: Yes: [facility] [place] and [facility] [place] Respiratory Needs: Room Air Patient Orientation: Alert & Oriented x 4 Social History: Current Living Situation: note indicate patient lives alone, has [facility]NA assistance at home. Past Speech Language Therapy: None Other Therapies Seen in Current Calendar Year: Occupational Therapy Physical Therapy Swallowing History: Dysphagia Specific: Within Functional Limits Comments: Patient seen for screening of swallow function, as patient was largely uncooperative/refusing food and drink needed for the assessment. On examination of oral motor function, patient presented with labial and lingual ROM, strength WFL. Patient has natural teeth in tact. When offered 1/2 tsp of water by spoon, patient initially began retching, and crying out help. MD and RN were present, patient was given emesis bag, continued to retch but unproductively. Patient eventually calmed accepted sip of water, produced a timely oral and pharyngeal phase of swallow with evident swallow trigger, no evidence of clinical signs of aspiration. Patient then again began retching, bringing up water and small amount of mucus. Patient was given an antinausea medication, no further attempts were made at food or liquid trials. Swallow present as WFL, however patient is refusing to eat, drink. Recommend continue on current regular diet, thin liquids, pills crushed in puree (if patient more tolerant when given in this method) however mechanically should have no difficulty whole with liquid, but is adverse at this time. Difficulty with eating/drinking largely behavioral at this time, but it was noted that when PHYSICIAN'S AIDE stated patient seemed anxious about eating/drinking, patient denied any anxiety, became defensive. Pre-eval Risk for Aspiration: None Pre-evaluation Dietary Consistencies: Regular Pre-eval Liquid Intake: Thin Pre-eval Medication Intake: Crushed with Puree Reported Speech, Language, Cognition difficulties: Speaking Comments: Patient reporting that she can't express herself, come up with words, often using single words, or initiating then stopping, evidencing frustration, distress, confusion. Patient articulation is clear, there is no evidence of dysarthria. Patient at time of visit also presented as highly anxious and escalated, was a trying to contact family members with message HELP! HELP! Patient Stated Goal of Speech-Language Therapy: Assess language function. Assessment Speech Production: Aphasic: Nonfluent Articulate Cryptic Observations: Patient presents as aphasic, struggling for words, langauge produced is cryptic at times. Speech is articulate with no evidence of dysarthria, however patient evidenced mild difficulty sequencing multisyllabic words. Informal Voice Assessment: Voice Loudness: Normal Voice Nasal Resonance: Normal Voice Oral Resonance: Normal Voice Phonatory-based Quality: Normal Voice Pitch: Normal Voice Other Observations: Clinical Impression: Intact Clinicial Observations: Tests of Speech & Lang Adults: BDAE BNT Clinical Impression: Impaired Observations: On the short form of the BNT, patient readily identified 4 out of 15 words. Three words identified were the first three words in the sequence, with patient then halting and having difficulty identifying canoe. Patient on first items she had difficulty responded stating empty without attempting the word. Patient cued first with context, when patient did not respond, patient was cued phonemically which then responded with the word in 9 of the 11 words that gave her difficulty. On the short form of the BDAE, Patient responded to the Cookie Theft narrative prompt intially with single perseverative words Cookie Jar and drop/dropped. When given a question prompt what is the boy doing? patient responded with more detail/complete sentences, with the question seemingly helping her to organize her expression. On receptive language tasks of auditory comprehension and complex ideational material, patient responded with 100 % accuracy. ON Automatized Sequences to assess oral expression, patient notably struggled with simple tasks of stating the days of the week and counting to 21. Patient stopped reciting days after readily stating Monday through Monday, requiring cuing to finish the sequence. Patient counted to 16 and then appeared to lose track of what she was doing and became confused about what she needed to count to. This confusion appeared unrelated to her word finding issues, and possibly more an attention/memory issue, however the behavior was markedly unusual. Similarly, When repeating a simple sentence he picks up the paper from the coffee table patient stated He picks up the coffee table omitting part of the sentence, which again may be more due to attention/memory weakness. Impressions and Recommendations Summary: On assessment today, patient is presenting with behavior's consistent with a moderate anomic aphasia, at a level that is disrupting her functional communication. Patient's receptive language presents as mostly intact, however she evidenced some disruption of her short term memory/attention which will need further assessment. Patient also presents with swallow function WFL, however patient demonstrates avoidance of food and drink, and notably retched up the small amount of water given to her today. Patient presents as highly anxious, at times bordering on panic, however patient denies that she is anxious. It is unclear at this time if expressive language disturbance is secondary to a neurological insult (with further testing, including brain MRI pending) or behavioral. Patient may need direct speech/language therapy at next level of care for anomic aphasia. Further assessment of memory cognition recommended. Impact on Daily Function/Activity Limitations: Daily Activities: Moderate Interpersonal Interactions: Moderate Community: Moderate Prognosis for Improvement: Comment: TBD Recommendation for Speech Therapy: Outpatient Speech Therapy Speech Therapy through [facility] Speech Therapy through Rehab Facility Patient Education: Completed: Yes Patient/Caregiver Education: Described Results of Evaluation Patient expressed understanding of evaluation Patient agrees with goals and treatment plan Comments/Barriers to Learning: Plasma Processor Clinican/Clinical Fellow: No Supervisory Statement: N/A Speech Language Pathologist: Laura Infante M.A., CCC-PHYSICIAN'S AIDE
[2025-05-06 21:24] LABS: Glucose, Whole Blood 104 mg/dL (60-115)
[2025-05-07] VITALS (7 sets, daily range): BP systolic 99–129; BP diastolic 55–80; PULSE 101–121; RESP 16–20; TEMP 36.4–37.1; O2SAT 97–100; BMI 25.9
--- NOTE | 2025-05-07 | EEG_ITS ---
Room performed:402 Reason: acute aphasia Medications: calcium, hydromorphone, linezolid, metronidazole, cefepime, lidocaine, lorazepam, midodrine, ondansetron History: pt reported having difficulty speaking starting 2 days ago - pt noted to be more altered this morning Rough Rounder Machine Comments Photic Stimulation: omitted Hyperventilation: omitted Behavioral state: pt altered State of consciousness: awake Skull defect: none Sedation: none Handedness: rt Description: This is a 16 channel EEG with an EKG lead. Patient is unresponsive during the tracing. Almost all EEG comprised of generalize sharp waves or generalize sharp and slow wave complexes, which at times were somewhat asymmetrical and slightly more pronounced in right hemisphere. At the tail end of the study, patient was treated with Versed resulting in resolution of this activity and leading to generalized mostly theta range rhythm. Impression: Status epilepticus, generalized, interrupted with dose of Versed. MTDD
[2025-05-07] MEDS: metroNIDAZOLE/NS 500 MG/100 ML PIGGYBACK 100 MG IV ×3 (02:01→16:48)
[2025-05-07] MEDS: cefEPime HCl/D5W 2 GM/50 ML PIGGYBACK IV ×3 (02:01→17:51)
[2025-05-07] MEDS: Linezolid/D5W 600 MG/300 ML PIGGYBACK 300 MG IV ×2 (04:11→15:44)
[2025-05-07 07:51] LABS: Glucose, Whole Blood 97 mg/dL (60-115)
--- NOTE | 2025-05-07 08:00 | ECG_ITS ---
Test Reason : ck qt rhythm Blood Pressure : */* mmHG Vent. Rate : 107 BPM Atrial Rate : * BPM P-R Int : * ms QRS Dur : 82 ms QT Int : 300 ms P-R-T Axes : * 37 249 degrees QTcB Int : 400 ms Sinus tachycardia Low voltage QRS Nonspecific ST and T wave abnormality Abnormal ECG When compared with ECG of 06-May-2025 08:48, No significant changes seen Referred By: Etta Garcia Electronically Signed By: Russell Hummel
[2025-05-07 08:06] LABS: Hematocrit 22.3 % (37.0-47.0); Hemoglobin 7.2 g/dl (12.0-16.0); Mean Corpuscular HGB Conc 32.3 g/dl (31.0-35.0); Mean Corpuscular Hemoglobin 28.5 pg (27.0-33.0); Mean Corpuscular Volume 88.1 fL (80.0-98.0); NRBC Abs Auto 0.000 X10*3/uL (0.0-0.012); NRBC Pct Auto 0.0 /100WBC (0.0-0.2); Platelet Count 71 X10*3/uL (160-400); Red Blood Count 2.53 X10*6/uL (4.20-5.50); White Blood Count 8.4 X10*3/uL (4.8-10.8)
--- NOTE | 2025-05-07 08:15 | P.PNIM_ITS ---
Subjective Subjective Date of Service: 05/07/25 Interval History: MRI Head 05/06/25 - -ve for ICH/Stroke EEG ordered - unclear to when it'll be done Spoke to brother and updated him Review of Systems Review of Systems: Yes all other systems are reviewed and are negative Physical Exam 2 Exam: Exam: Exam limited given pt stating I am not okay , unable to elaborate, doesnt follow commands, perserverates General: AOx3, no acute distress Resp: CTA bilaterally CVS: S1, S2, RRR Neuro: Cranial nerves II-XII grossly intact bilaterally. Motor grossly intact bilaterally Vital Signs: Vital Signs: Last Vital Signs Temp 97.6 F 05/07/25 07:49 Pulse 106 H 05/07/25 07:49 Resp 18 05/07/25 07:49 BP 113/61 05/07/25 07:49 Pulse Ox 99 05/07/25 07:49 O2 Del Method Room Air 05/07/25 07:49 BMI result Body Mass Index 25.9 Objective Data Active Medications Calcium Carbonate (Calcium Carbonate 750 Mg Tab.Chew) 750 mg PO Q4H PRN PRN Reason: Heartburn Last Admin: 05/04/25 12:16 Dose: 750 mg Documented By: KASSY Dextrose (Dextrose 50 % 25 Gm/50 Ml Syringe) 25 gm IVPUSH Q15M PRN; Protocol PRN Reason: per Hypoglycemia Standing Ord. Glucose (Glucose Gel 15 Gm Gel..Gram.) 15 gm PO Q15M PRN; Protocol PRN Reason: per Hypoglycemia Standing Ord. Heparin Sodium (Porcine) (Heparin Sodium,Porcine 5,000 Unit/Ml Vial) 5,000 unit SUBCUT Q8H [facility] Last Admin: 05/07/25 02:01 Dose: 5,000 unit Documented By: CHAMP Hydromorphone HCl (Hydromorphone Hcl 1 Mg/Ml Syringe) 1 mg IVPUSH Q4H PRN; Protocol PRN Reason: Pain, Severe (Pain Scale 7-10) Last Admin: 05/07/25 02:30 Dose: 1 mg Documented By: CARMEN Linezolid (Zyvox/D5w) 600 mg in 300 mls @ 300 mls/hr IV Q12H [facility] Last Infusion: 05/07/25 05:18 Dose: Infused Documented By: CHAMP Metronidazole (Flagyl) 500 mg in 100 mls @ 100 mls/hr IV Q8H [facility] Last Infusion: 05/07/25 03:06 Dose: Infused Documented By: CHAMP Cefepime HCl (Maxipime) 2 gm in 50 mls @ 100 mls/hr IV Q8H [facility] Last Infusion: 05/07/25 04:05 Dose: Infused Documented By: CHAMP Dextrose/Sodium Chloride (D5ns) 1,000 mls @ 80 mls/hr IVCONT .[id number] [facility] Last Admin: 05/07/25 04:06 Dose: 80 mls/hr Documented By: CHAMP Lidocaine (Lidocaine 4 % Patch Adh..Patch) 1 patch TRANSDERMA DAILY [facility]; Protocol Last Admin: 05/06/25 09:30 Dose: Not Given Documented By: FAUSTINA Non-Admin Reason: Patient Refused Lorazepam (Lorazepam 0.5 Mg Tablet) 0.5 mg PO Q4H PRN PRN Reason: Nausea and Vomiting Last Admin: 05/05/25 15:20 Dose: 0.5 mg Documented By: LUIS Midodrine (Midodrine Hcl 10 Mg Tablet) 10 mg PO TID [facility] Last Admin: 05/06/25 20:00 Dose: Not Given Documented By: CHAMP Non-Admin Reason: Patient Refused Ondansetron HCl (Ondansetron Hcl 4 Mg/2 Ml Vial) 4 mg IVPUSH Q8H PRN PRN Reason: Nausea and Vomiting Last Admin: 05/07/25 02:30 Dose: 4 mg Documented By: CARMEN Comments: MD mora to give early Prochlorperazine Edisylate (Prochlorperazine Edisylate 10 Mg/2 Ml Vial) 5 mg IVPUSH Q4H PRN PRN Reason: Nausea and Vomiting Sodium Chloride (0.9 % Sodium Chloride Flush 3 Ml Syringe) 3 ml IVFLUSH QSHIFT [facility] Last Admin: 05/06/25 20:03 Dose: 3 ml Documented By: CHAMP Labs 05/07/25 06:59 05/06/25 07:25 Labs: Laboratory Results - last 24 hr 05/06/25 05/06/25 05/06/25 07:25 10:48 16:09 MCV 85.4 MCH 28.7 MCHC 33.6 RDW 16.2 H Plt Count 94 L MPV 9.3 L Immature Gran % (Auto) 0.6 H Neut % (Auto) 77.8 H Lymph % (Auto) 15.4 L [place] % (Auto) 3.2 Eos % (Auto) 1.9 Baso % (Auto) 1.1 Lymph # (Auto) 1.4 [place] # (Auto) 0.3 Eos # (Auto) 0.2 Baso # (Auto) 0.1 Abs Immat Gran (auto) 0.06 H Absolute Neuts (auto) 7.3 Absolute Nucleated RBC 0.020 H Nucleated RBC % (auto) 0.2 Anion Gap 15 Estim Creat Clear Calc 56.6 Estimated GFR > 60 POC Glucose 115 101 Random Glucose 96 Calcium 8.0 L Phosphorus 2.6 L Magnesium 1.4 L* Total Bilirubin 0.8 AST 21 ALT < 6 Alkaline Phosphatase 79 Total Protein 5.4 L Albumin 3.4 L 05/06/25 05/07/25 05/07/25 21:20 06:59 07:46 MCV 88.1 MCH 28.5 MCHC 32.3 RDW 16.5 H Plt Count 71 L MPV 9.7 Immature Gran % (Auto) Neut % (Auto) Lymph % (Auto) [place] % (Auto) Eos % (Auto) Baso % (Auto) Lymph # (Auto) [place] # (Auto) Eos # (Auto) Baso # (Auto) Abs Immat Gran (auto) Absolute Neuts (auto) Absolute Nucleated RBC 0.000 Nucleated RBC % (auto) 0.0 Anion Gap Estim Creat Clear Calc Estimated GFR POC Glucose 104 97 Random Glucose Calcium Phosphorus Magnesium Total Bilirubin AST ALT Alkaline Phosphatase Total Protein Albumin Assessment and Plan (1) Hypotension: Status: Acute (2) Stress-induced cardiomyopathy: Status: Acute (3) CAD (coronary artery disease): Status: Acute (4) Hemorrhagic shock: Status: Acute (5) Mild aphasia: Status: Acute (6) Abscess: Status: Acute Plan 65-year-old lady with underlying diastolic dysfunction, coronary artery disease, IBS, paroxysmal AFib, perforated colon secondary to diverticulitis status post colectomy with hernia repair, revision colostomy and conversant to ileostomy at [facility] [place] in January of 2025 further complicated by chronic intra-abdominal abscess requiring multiple admissions and draining admitted on 04/27/2025 with suspicion enterocutaneous fistula drainage, noted to be an infected hematoma with spontaneous drainage, and hypotension. Patient managed with empiric antibiotics and evaluated by General surgery with no surgical procedures planned. Hospital course significant for spontaneous drainage of one of abscesses with consideration for additional transcutaneous drainage ongoing. Patient has been off pressor support , back to floors on 05/06/25. However , now exhibits acute onset aphasia and refuses to have any po intake Overnight had aphasia, stroke was suspected, CTA H&N -ve, Aphasia - No obv medical explanagtion found acute onset, Stroke workup thus far -ve Neurology consulted EEG ordered Brother updated ?Conversion ?Malingering Psych consulted Dysphagia Cleared by Speech eval, pt refuses food and meds Will conitnue to limite meds and encourage po intake s/p hemorrhagic shock: CAD pAfib s/p 1 Unit prbc hold eliquis prior diverticulitis c/b perforation s/p colectomy, c/b intra-abdominal 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, presenting w/ bloody drainage c/f infected hematoma, appreciate general surgery recommendations echo 04/29 suggestive of stress-induced cardiomyopathy; appreciate cardiology recommendations Hb stable for now, cont with Abx cefepime, flagyl and zyvox, ID consult abscess cx kleb and ecoli. MARKIE: resolved DVT px: heparin sc Quality Stroke Does the patient have a stroke diagnosis?: No VTE Prior VTE?: No VTE Risk Level:: Medical - moderate - high VTE Device Contraindication: N/A - Device Ordered VTE Drug Contraindication: N/A - Med Ordered
[2025-05-07] MEDS: 0.9 % Sodium Chloride Flush 3 ML SYRINGE IVFLUSH ×3 (09:17→20:07)
[2025-05-07 11:23] LABS: Glucose, Whole Blood 104 mg/dL (60-115)
--- NOTE | 2025-05-07 11:31 | MHC.SP.ADU ---
Tx note 05/07/25: Pt sitting upright in chair, holding emesis bag, eliciting volitional wretching intermittently. Pt made consistent and meaningful eye contact throughout session, changing facial expression frequently. Pt observed to be aware of others upon their entering the room, and did respond verbally when asked yes/no questions. Pt processing speed considered efficient as response timing consistent for simple questions. Response latency occurred intermittently, with pt sustaining eye contact and eventually verbalizing yes/no/or scripted phrases. Pt exhibited more interest in answering yes/no questions about changes to her voice and communication. Pt agreed to continued RETURNED CASE INSPECTOR intervention in treating functional communication without etiological determination at this time. RETURNED CASE INSPECTOR provided choices for responses and demonstrated use of low tech AAC board during treatment. Pt responded with immediate verbalization of yes to question about breakfast, but tray was untouched. Pt responded with immediate verbalization of no when asked if she vomited. Pt responded with delayed verbalization of yes when asked if she has children. Pt stated 'I don't know' when asked her age, how many children she has, and how long she has been experiencing changes to voice/communication. Pt responded with pragmatic language script 'thank you' in timely manner, appropriately eliciting response when RETURNED CASE INSPECTOR provided education on brain functioning related to language with visual referent, and immediately in response to RETURNED CASE INSPECTOR after hearing proposed POC. Pathology of functional communication deficits has yet to be determined. Differential diagnosis includes anomic aphasia (word finding difficulties in expressive language), anhedonia (diminished motivation to engage in conversations), alogia (poverty of speech), anosognosia (inability to discuss illness), or even elective mutism. Pt has not had a stroke or hx of dx such as Parkinson's or Elder's Disease. Treating RETURNED CASE INSPECTOR: Brinda Soto MS [facility]-RETURNED CASE INSPECTOR Referring provider: José Miguel Duran Reason for Referral: Swallow, difficulty speaking Type of Treatment: 25181 Evaluation Speech Sound Production WITH Language Date of Plan of Treatment: 05/06/25 Onset of Symptoms/Illness: 05/05/25 Date Treatment Started: 05/06/25 Medical Diagnosis: (1) Hypotension: (2) Stress-induced cardiomyopathy: (3) CAD (coronary artery disease): (4) Hemorrhagic shock: (5) Mild aphasia: (6) Abscess: Primary Speech Language Diagnosis: R47.01 Aphasia Secondary Speech Language Diagnosis: I69.911 Memory deficit History Patient is a 65 year old woman who was initially admitted to the ICU on 04/27/2025 with suspicion enterocutaneous fistula drainage, noted to be an infected hematoma with spontaneous drainage, and hypotension. Hospital course significant for spontaneous drainage of one of abscesses with consideration for additional transcutaneous drainage ongoing. Patient transferred out of ICU on 05/04, on 05/05 had sudden onset of difficulty expressing herself, struggling for words. Patient has been seen for a head CT and a head and neck CT, all of which were negative for cva or intercranial process. Neurology assessed her 05/06, diagnosed mild aphasia and recommended brain scan. This morning as well, patient had difficulty taking meds, coughed and choked on administration, swallow assessment also requested with that assessment included in this note. Medical History: Other: History of sigmoidoscopy Multinodular thyroid Chronic vomiting Hypocalcemia Iron deficiency anemia Hyponatremia Hypomagnesemia Acute cholecystitis Atrial flutter CAD (coronary artery disease) History of acute cholecystitis History of pancreatitis Pancreatitis Insomnia Bilateral knee pain Polyarthralgia MARKIE (acute kidney injury) Back pain Arthritis History of transfusion of packed red blood cells Anemia Cardiomyopathy MARKIE (acute kidney injury) MARKIE (acute kidney injury) Anxiety Small bowel obstruction Myocardial infarction NSTEMI (non-ST elevated myocardial infarction) NSVT (nonsustained ventricular tachycardia) PVC (premature ventricular contraction) Hypertension Perforated diverticulum Irritable bowel syndrome with constipation Barretts esophagus GERD (gastroesophageal reflux disease) Medication List: Recent Hospitalizations: Yes: H and [facility] [place] Respiratory Needs: Room Air Patient Orientation: Alert & Oriented x 4 Social History: Employment Status: Highest level of education obtained: Current Living Situation: note indicate patient lives alone, has NA assistance at home. Assistive Devices in use: Comment: Past Speech Language Therapy: None Other Therapies Seen in Current Calendar Year: Occupational Therapy Physical Therapy Other: Swallowing History: Dysphagia Specific: Within Functional Limits Comments: Patient seen for screening of swallow function, as patient was largely uncooperative/refusing food and drink needed for the assessment. On examination of oral motor function, patient presented with labial and lingual ROM, strength WFL. Patient has natural teeth in tact. When offered 1/2 tsp of water by spoon, patient initially began retching, and crying out help. MD and RN were present, patient was given emesis bag, continued to retch but unproductively. Patient eventually calmed accepted sip of water, produced a timely oral and pharyngeal phase of swallow with evident swallow trigger, no evidence of clinical signs of aspiration. Patient then again began retching, bringing up water and small amount of mucus. Patient was given an antinausea medication, no further attempts were made at food or liquid trials. Swallow present as WFL, however patient is refusing to eat, drink. Recommend continue on current regular diet, thin liquids, pills crushed in puree (if patient more tolerant when given in this method) however mechanically should have no difficulty whole with liquid, but is adverse at this time. Difficulty with eating/drinking largely behavioral at this time, but it was noted that when RETURNED CASE INSPECTOR stated patient seemed anxious about eating/drinking, patient denied any anxiety, became defensive. Pre-eval Risk for Aspiration: None Pre-evaluation Dietary Consistencies: Regular Pre-eval Liquid Intake: Thin Pre-eval Medication Intake: Crushed with Puree Reported Speech, Language, Cognition difficulties: Speaking Comments: Patient reporting that she can't express herself, come up with words, often using single words, or initiating then stopping, evidencing frustration, distress, confusion. Patient articulation is clear, there is no evidence of dysarthria. Patient at time of visit also presented as highly anxious and escalated, was a trying to contact family members with message HELP! HELP! Quality of Life: Patient Stated Goal of Speech-Language Therapy: Assess language function. Assessment Speech Production: Aphasic: Nonfluent Articulate Cryptic Clinical Impression: Observations: Patient presents as aphasic, struggling for words, langauge produced is cryptic at times. Speech is articulate with no evidence of dysarthria, however patient evidenced mild difficulty sequencing multisyllabic words. Informal Voice Assessment: Voice Loudness: Normal Voice Nasal Resonance: Normal Voice Oral Resonance: Normal Voice Phonatory-based Quality: Normal Voice Pitch: Normal Voice Other Observations: Clinical Impression: Intact Clinicial Observations: Tests of Speech & Lang Adults: BDAE BNT Clinical Impression: Impaired Observations: On the short form of the BNT, patient readily identified 4 out of 15 words. Three words identified were the first three words in the sequence, with patient then halting and having difficulty identifying canoe. Patient on first items she had difficulty responded stating empty without attempting the word. Patient cued first with context, when patient did not respond, patient was cued phonemically which then responded with the word in 9 of the 11 words that gave her difficulty. On the short form of the BDAE, Patient responded to the Cookie Theft narrative prompt intially with single perseverative words Cookie Jar and drop/dropped. When given a question prompt what is the boy doing? patient responded with more detail/complete sentences, with the question seemingly helping her to organize her expression. On receptive language tasks of auditory comprehension and complex ideational material, patient responded with 100 % accuracy. ON Automatized Sequences to assess oral expression, patient notably struggled with simple tasks of stating the days of the week and counting to 21. Patient stopped reciting days after readily stating Monday through Monday, requiring cuing to finish the sequence. Patient counted to 16 and then appeared to lose track of what she was doing and became confused about what she needed to count to. This confusion appeared unrelated to her word finding issues, and possibly more an attention/memory issue, however the behavior was markedly unusual. Similarly, When repeating a simple sentence he picks up the paper from the coffee table patient stated He picks up the coffee table omitting part of the sentence, which again may be more due to attention/memory weakness. Tests of Cognition: Clinical Impression: Observations: Augmentative and Alternative Communication: Observations: Impressions and Recommendations Summary: Impact on Daily Function/Activity Limitations: Daily Activities: Moderate Interpersonal Interactions: Moderate Education: Employment: Community: Prognosis for Improvement: Comment: TBD Recommendation for Speech Therapy: Outpatient Speech Therapy Speech Therapy through [facility] Speech Therapy through Rehab Facility Frequency/Duration: Date Range for Service Requested: Time to Reassess: Mathematician Research Goals: Short Term Goals: Goal # : Pt will respond accurately to simple yes/no questions. Goal Status: Goal# : Pt will elicit responses with decreased latency. Goal Status: Goal # : Pt will speak at the phrase level in response to simple questions. Goal Status: Goal # : Pt will utilize Alternative/Augmentative Communication to promote improved functional communication. Goal Status: Recommended Referrals to be Discussed with Primary Care Provider: Patient Education: Completed: Yes Patient/Caregiver Education: Described Results of Evaluation Patient expressed understanding of evaluation Patient agrees with goals and treatment plan Comments/Barriers to Learning: Vallez Filter Operator Clinican/Clinical Fellow: No Supervisory Statement: N/A Speech Language Pathologist: Brinda Soto M.S., CCC-RETURNED CASE INSPECTOR
--- NOTE | 2025-05-07 14:14 | MHC.CM.PN ---
Per rounds, pt. is refusing meds and to eat. Further assessment to be completed, not ready to DC. CM to follow for DC needs.
[2025-05-07 16:31] LABS: Glucose, Whole Blood 118 mg/dL (60-115)
[2025-05-07 21:38] LABS: Glucose, Whole Blood 105 mg/dL (60-115)
[2025-05-08] VITALS (10 sets, daily range): BP systolic 96–134; BP diastolic 54–98; PULSE 97–120; RESP 16–22; TEMP 36.2–37.3; O2SAT 99–100; BMI 26.7
[2025-05-08] MEDS: metroNIDAZOLE/NS 500 MG/100 ML PIGGYBACK 100 MG IV ×2 (01:21→08:05)
[2025-05-08] MEDS: cefEPime HCl/D5W 2 GM/50 ML PIGGYBACK IV ×2 (01:27→17:30)
[2025-05-08 06:56] LABS: MANUAL DIFF FLAG NO
[2025-05-08 07:08] LABS: Imm Gran Abs Auto 0.05 X10*3/uL (0.00-0.03); Imm Gran Pct Auto 0.5 % (0.0-0.4); Lymphocytes Absolute Auto 1.5 X10*3/uL (1.2-4.9); Mean Corpuscular HGB Conc 32.8 g/dl (31.0-35.0); Mean Corpuscular Hemoglobin 28.6 pg (27.0-33.0); Mean Corpuscular Volume 87.1 fL (80.0-98.0); NRBC Abs Auto 0.000 X10*3/uL (0.0-0.012); NRBC Pct Auto 0.0 /100WBC (0.0-0.2); Red Blood Count 2.24 X10*6/uL (4.20-5.50); White Blood Count 10.4 X10*3/uL (4.8-10.8)
[2025-05-08 07:13] LABS: Platelet Count 59 X10*3/uL (160-400)
[2025-05-08 07:27] LABS: Hematocrit 19.5 % (37.0-47.0); Hemoglobin 6.4 g/dl (12.0-16.0)
[2025-05-08 07:49] LABS: Alanine Aminotransferase < 6 U/L (0-31); Albumin Level 3.1 g/dL (3.5-5.0); Alkaline Phosphatase 70 U/L (39-117); Aspartate Amino Transferase 23 U/L (5-31); Blood Urea Nitrogen 8 mg/dL (9-16); Calcium 7.8 mg/dL (8.4-10.2); Creatinine Clr Calc Pharmacy 60.3; Estimated Glomerular Filt Rate > 60; Magnesium 1.3 mg/dL (1.6-2.6); Total Protein 5.6 g/dL (6.5-8.0)
[2025-05-08 07:53] LABS: Glucose, Whole Blood 91 mg/dL (60-115)
[2025-05-08 07:56] LABS: Anion Gap 16 (12-20); Carbon Dioxide 13 mmol/L (22-29); Chloride 114 mmol/L (96-108); Potassium 3.9 mmol/L (3.3-5.1); Sodium 139 mmol/L (135-145)
--- NOTE | 2025-05-08 08:00 | ECG_ITS ---
Test Reason : qtc check Blood Pressure : */* mmHG Vent. Rate : 108 BPM Atrial Rate : 108 BPM P-R Int : 172 ms QRS Dur : 84 ms QT Int : 298 ms P-R-T Axes : 51 59 229 degrees QTcB Int : 399 ms Sinus tachycardia Nonspecific ST and T wave abnormality Abnormal ECG When compared with ECG of 07-May-2025 07:54, Sinus rhythm has replaced Junctional rhythm Referred By: Etta Garcia Electronically Signed By: Russell Hummel
[2025-05-08] MEDS: 0.9 % Sodium Chloride Flush 3 ML SYRINGE IVFLUSH ×3 (08:03→17:33)
[2025-05-08] MEDS: Lidocaine 4 % Patch ADH..PATCH 1 PATCH TRANSDERMA (08:06)
--- NOTE | 2025-05-08 08:57 | HO.PM.IMPN ---
Subjective Subjective Date of Service: 05/08/25 Physical Exam Vital Signs: Vital Signs: Last Vital Signs Temp 97.5 F 05/08/25 08:00 Pulse 108 H 05/08/25 08:00 Resp 18 05/08/25 08:00 BP 110/54 L 05/08/25 08:00 Pulse Ox 99 05/08/25 08:00 O2 Del Method Room Air 05/08/25 08:00 BMI result Body Mass Index 26.7 Objective Data Active Medications Calcium Carbonate (Calcium Carbonate 750 Mg Tab.Chew) 750 mg PO Q4H PRN PRN Reason: Heartburn Last Admin: 05/04/25 12:16 Dose: 750 mg Documented By: KASSY Dextrose (Dextrose 50 % 25 Gm/50 Ml Syringe) 25 gm IVPUSH Q15M PRN; Protocol PRN Reason: per Hypoglycemia Standing Ord. Glucose (Glucose Gel 15 Gm Gel..Gram.) 15 gm PO Q15M PRN; Protocol PRN Reason: per Hypoglycemia Standing Ord. Metronidazole (Flagyl) 500 mg in 100 mls @ 100 mls/hr IV Q8H [facility] Last Admin: 05/08/25 08:05 Dose: 100 mls/hr Documented By: KORTNEY Cefepime HCl (Maxipime) 2 gm in 50 mls @ 100 mls/hr IV Q8H [facility] Last Infusion: 05/08/25 02:00 Dose: Infused Documented By: ESTEBAN Dextrose/Sodium Chloride (D5ns) 1,000 mls @ 80 mls/hr IVCONT .[id number] [facility] Last Admin: 05/08/25 04:35 Dose: 80 mls/hr Documented By: ESTEBAN Lidocaine (Lidocaine 4 % Patch Adh..Patch) 1 patch TRANSDERMA DAILY [facility]; Protocol Last Admin: 05/08/25 08:06 Dose: 1 patch Documented By: KORTNEY Lorazepam (Lorazepam 0.5 Mg Tablet) 0.5 mg PO Q4H PRN PRN Reason: Nausea and Vomiting Last Admin: 05/07/25 20:07 Dose: 0.5 mg Documented By: ESTEBAN Midodrine (Midodrine Hcl 10 Mg Tablet) 10 mg PO TID [facility] Last Admin: 05/08/25 08:05 Dose: 10 mg Documented By: KORTNEY Ondansetron HCl (Ondansetron Hcl 4 Mg/2 Ml Vial) 4 mg IVPUSH Q8H PRN PRN Reason: Nausea and Vomiting Last Admin: 05/08/25 01:22 Dose: 4 mg Documented By: ESTEBAN Potassium Phos/Sodium Phos (Sodium,Potassium Phosphates Powd.Pack) 2 packet PO QID [facility] Stop: 05/09/25 08:59 Prochlorperazine Edisylate (Prochlorperazine Edisylate 10 Mg/2 Ml Vial) 5 mg IVPUSH Q4H PRN PRN Reason: Nausea and Vomiting Sodium Chloride (0.9 % Sodium Chloride Flush 3 Ml Syringe) 3 ml IVFLUSH QSHIFT [facility] Last Admin: 05/08/25 08:03 Dose: 3 ml Documented By: KORTNEY Labs 05/08/25 06:48 05/08/25 06:48 Labs: Laboratory Results - last 24 hr 05/07/25 05/07/25 05/07/25 11:18 16:06 21:33 MCV MCH MCHC RDW Plt Count MPV Immature Gran % (Auto) Neut % (Auto) Lymph % (Auto) [place] % (Auto) Eos % (Auto) Baso % (Auto) Lymph # (Auto) [place] # (Auto) Eos # (Auto) Baso # (Auto) Abs Immat Gran (auto) Absolute Neuts (auto) Absolute Nucleated RBC Nucleated RBC % (auto) Anion Gap Estim Creat Clear Calc Estimated GFR POC Glucose 104 118 H 105 Random Glucose Calcium Phosphorus Magnesium Total Bilirubin AST ALT Alkaline Phosphatase Total Protein Albumin TSH Crossmatch 05/08/25 05/08/25 05/08/25 06:48 07:48 08:26 MCV 87.1 MCH 28.6 MCHC 32.8 RDW 16.5 H Plt Count 59 L MPV 10.2 Immature Gran % (Auto) 0.5 H Neut % (Auto) 80.4 H Lymph % (Auto) 14.3 L [place] % (Auto) 2.7 Eos % (Auto) 1.2 Baso % (Auto) 0.9 Lymph # (Auto) 1.5 [place]more # (Auto) 0.3 Eos # (Auto) 0.1 Baso # (Auto) 0.1 Abs Immat Gran (auto) 0.05 H Absolute Neuts (auto) 8.4 H Absolute Nucleated RBC 0.000 Nucleated RBC % (auto) 0.0 Anion Gap 16 Estim Creat Clear Calc 60.3 Estimated GFR > 60 POC Glucose 91 Random Glucose 92 Calcium 7.8 L Phosphorus 1.2 L Magnesium 1.3 L* Total Bilirubin 1.0 AST 23 ALT < 6 Alkaline Phosphatase 70 Total Protein 5.6 L Albumin 3.1 L TSH 1.15 Crossmatch See Detail Quality Stroke Does the patient have a stroke diagnosis?: No VTE Prior VTE?: No VTE Risk Level:: Medical - moderate - high VTE Device Contraindication: N/A - Device Ordered VTE Drug Contraindication: N/A - Med Ordered
[2025-05-08] MEDS: levETIRAcetam in NaCl (iso-os) 1,000 MG/100 ML PIGGYBACK 400 MG IV ×2 (11:27→19:45)
[2025-05-08 11:51] LABS: Glucose, Whole Blood 84 mg/dL (60-115)
--- NOTE | 2025-05-08 12:17 | HO.WOUND ---
Ostomy and Wound Consult: Follow up 65yr old?female admitted to [facility] [place] on 04/27/25 - See progress notes and H&P for detailed history.? Arrival to bedside patient continues with expressive aphasia . Suspected Abscess sites are treated with dry dressings and are followed by General Surgery. Abdominal dressing were removed at the time of her ostomy pouch change. the midline site was packed with gauze packing strip this was redressing in the same fashion however instead of tape foam silicone dressing was applied due to MARSI (Medical Adhesive Related Skin Injury). Skin prep was applied prior to dressing application. Patient continues to experience neurological symptoms and providers are aware - workup currently underway. Patient was having trouble word finding and was frustrated - she did request multiple times to Help Me . Given her clinical picture changes her skin was assessed - her buttock and perineal area were noted for significant fungal dermatitis and MASD. Gently cleansed and request provider to order topical antifungal powder. Skin folds assessed and also noted for fungal derma and MASD. Buttock, Groin and Perineal area and Breast skin folds - Cleanse with PH balance wipes, pat dry with soft cloth.? Apply antifungal power to assist with moisture management.? Be sure to dust of excess powder to prevent caking on skin and in folds. Apply per provider orders. Follow with barrier cream application twice daily and PRN. Off load pressure from buttock with Q2hr turns and repositions. Ostomy pouch assessed - silent leaking noted at this time. Pouch changed with new recommendations to apply powder and skin prep prior to new pouch application. Continue to use barrier strip paste and convex pouch. Template left at bedside along with supplies. Details from prior assessments. 3 o'clock crease Stoma with barrier strip paste applied prior to pouch assessment. Followed by Convex pouch application - template left at bedside. Completed with Brava Elastic C strips to extend the pouch edge in an effort to minimize leaking. Patient refused belt application. Recommendations: 1. Turn and Reposition every 2 hours and as needed for patient comfort.? Use pillows or wedges to support off loading positions. 2. Off Load all bony prominences with use of pillows and heel boots if needed.? Apply Preventative foams where needed. ? 3. Monitor for incontinence and moisture control, use barrier creams when needed for prevention and treatment. 4. Provide adequate and supplemental nutrition.? 5. Order low air loss mattress. 6. When applicable maintain blood glucose levels per Providers order. Buttock / Gluteal Fold, perineal and skin folds - Off Load Pressure with Q2 hr turns and use of pillows - Cleanse with PH balance spray or wipes, pat dry with soft cloth.? Apply antifungal power to assist with moisture management.? Be sure to dust of excess powder to prevent caking on skin and in folds. Apply per provider orders. Follow with barrier cream application twice daily and PRN. Abdominal Abscess / Fistula Sites - defer to general surgery team. Ostomy - Use Template for stoma size left at bedside - Apply barrier strip paste around stoma and at the 3 o'clock location to aminta crease. Apply Convex pouch, completed with Brava Elastic C strips to extend the pouch edge in an effort to minimize leaking. Re-consult wound care Nurse for wound deterioration or wound changes.
--- NOTE | 2025-05-08 14:07 | MHC.CLN ---
CONSULT PER WOUND NURSE: PT WITH CHRONIC POOR PO INTAKE SINCE ADMISSION AND CURRENTLY REFUSING PO WITH ACUTE APHASIA PREVIOUS PO 25-50%; NOW REFUSING PO WITH RETCHING CURRENTLY NPO PER MD THIS PM [employer] FOLLOWING FOR APPROPRIATE DIET CONSISTENCY FOLLOWING WITH TEAM FOR DIET ADVANCEMENT-WILL PROVIDE SUPPORT NEEDED IF PO INTAKE DOES NOT IMPROVE X24 HOURS; CONSULT RD FOR PPN/TPN (ALTERNATIVE NUTRITION) SEE FULL ASSESSMENT
[2025-05-08 15:58] LABS: Hemoglobin 7.1 g/dl (12.0-16.0); Mean Corpuscular HGB Conc 34.0 g/dl (31.0-35.0); Mean Corpuscular Hemoglobin 29.1 pg (27.0-33.0); Mean Corpuscular Volume 85.7 fL (80.0-98.0); NRBC Abs Auto 0.000 X10*3/uL (0.0-0.012); NRBC Pct Auto 0.0 /100WBC (0.0-0.2); Red Blood Count 2.44 X10*6/uL (4.20-5.50); White Blood Count 12.0 X10*3/uL (4.8-10.8)
[2025-05-08 16:06] LABS: Hematocrit 20.9 % (37.0-47.0); Platelet Count 46 X10*3/uL (160-400)
[2025-05-08 16:43] LABS: Glucose, Whole Blood 86 mg/dL (60-115)
--- NOTE | 2025-05-08 19:05 | PM.DS ---
DS: Providers Provider Date of Service: 05/08/25 Date of admission: 04/27/25 14:33 Date of discharge: 05/08/25 Primary care physician: Joi Rebollar MD Consults: 04/27/25 18:00 Consult to Wound Care Routine Reason for consultation: BL wounds around the ileostomy, Slit to gluteal fold Has provider been notified: Yes 04/28/25 12:36 Consult to Cardiology Routine Consulting Provider: Lupillo Sinclair Reason for consultation: Bradycardia Has provider been notified: Yes 05/05/25 23:50 Consult to Neurology Routine Consulting Provider: [facility] Reason for consultation: speech diffculty Has provider been notified: No DS: Transfer Hospital Acceptance Reason for Transfer: Continuous video EEG monitoring Name of Facility: [facility] Accepting Provider: Accepting physician Dr. Baltazar Young ( Step down unit), and neurologist Dr. 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 Initially we thought that it could be secondary to a stroke however stroke workup imaging was unremarkable at that time. On 05/08/2025, we did a spot EEG which showed generalized epileptic discharges. Patient is a poor historian and hence clinical exam was confounding and she continued to be confused and aphasic and refusing to eat and drink anything. We had immediately given her Keppra 1 g and Versed 2 g followed by another g of Keppra and Versed for breakthrough seizures. Patient appears to be confused however is able to converse which is likely improvement since morning. Patient is being transferred to [facility] for continuous video EEG monitoring. Accepting physician Dr. Baltazar Young Etiology unclear for her acute status epilepticus be likely believe it could be a bland status epilepticus as she did not have any Kernig's or Brudzinski sign or any prior history of seizures or any signs of infection or stroke. Hemorrhagic shock and septic shock secondary to multiple abdominal wall abscesses initial presentation to [facility] on 04/27/2025 for abdominal wall abscesses likely infected hematoma versus infected fistula Abdominal wall midline dehiscence complicating her current hospitalized stay requiring transfer to MICU and being on pressors, intubation and ventilation history of perforated colon due to divertiulitis s/p colectomy in the past with hernia repair and revision colostomy converted to ileostomy at [facility] (01/07/2025) status post sigmoid colectomy with a Tye procedure for perforated sigmoid diverticulitis 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 for concern of cholecystitis 03/30/2025 till 04/12/2025 for possible septic shock Patient presented to [facility] due to concerns of pus leaking from the fistula which later became sanguinous, with septic shock requiring pressors and transferred to MICU on 04/27/2025. She was treated with broad-spectrum antibiotics-she continues to be on broad-spectrum antibiotics-cefepime 2 g q.i.d., metronidazole for C diff Imaging done POA-suggested decreasing size of complex fluid collection-please see attached imaging. During this hospitalization, anticoagulation was held and hence she has been off of Eliquis since. Since transfer out of ICU, she has been around 8-9 however the a.m. of 05/08/2025 her hemoglobin dropped to 6.9 and we transfused 2 units Thrombocytopenia Likely secondary to bone marrow suppression At the time of transfer, her platelets were 46, however we did not see any overt signs of bleed or petechiae-she did have some bruising in her arms We were going to tsang scan her to look for any occult bleed Acute worsening of anemia-likely occult GI bleed Since transfer out of ICU, she has been around 8-9 however the a.m. of 05/08/2025 her hemoglobin dropped to 6.9 and we transfused 2 units Electrolyte abnormalities -being repleted Likely secondary to poor oral intake and she had officially passed swallow eval, however at the time of this discharge, since she was in status epilepticus she is NPO Paroxysmal AFib on Eliquis (discontinued this hospitalization due to hemorrhagic shock) HFrEF HTN HLD new LV dysfunction stress-induced cardiomyopathy Atrial flutter PVCs Patient was noted to have stress-induced cardiomyopathy, her prior cardiac catheterization per medical records did not show any obvious occlusions Her previous echo did show LVEF 39% with wall motion abnormalities She was monitored on telemetry and electrolytes were repleted aggressively She is currently on midodrine 10 mg p.o. t.i.d. for hemodynamic support Guarded prognosis -family aware Family-Tiffanie Phelps [phone], Star Phelps - [phone], brother at bedside updated and aware of the guarded prognosis They are discussing about code status and would like to talk and person tomorrow 05/09/2025 Please feel free to call/reach out for any further medical/concern Time spent discussing smoking cessation with patient: more than 10 minutes (More than 2 hours coordinating care, multiple subspecialty support, transferred to outpatient hospitalist) Status at Discharge Cognitive/behavioral status at discharge: Aware of self, confused Functional status at discharge: bed bound Overall status at discharge: patient is not back to baseline Time Attestation Total time managing care of this patient today: 60 mintues. Discharge Coordination Time (in mins): >60 mins Quality: Safe Use of Opioids Does Pt have an Active Cancer Diagnosis on the Problem List?: No Quality: Stroke Does the patient have a stroke diagnosis?: No Physical Exam Exam: Exam: Physical exam-A&O times 0, able to converse and say that she is in the hospital, is aware that she does not feel well, however is unable to recall her name or the reason for her hospitalization stay Her colostomy site is-CDI CVS-AFib, rate control RR-clear, decreased breath sounds in bilateral lower lungs bases GI-colostomy site clean dry and intact, Vital Signs: Vital Signs: Last Vital Signs Temp 98.2 F 05/08/25 18:49 Pulse 104 H 05/08/25 18:49 Resp 18 05/08/25 18:49 BP 112/66 05/08/25 18:49 Pulse Ox 99 05/08/25 15:39 O2 Del Method Room Air 05/08/25 15:39 BMI result Body Mass Index 26.7 DS: Data Data Completed and Pending Completed studies during hospitalization [Text1]: Procedures Bypass Ileum to Cutaneous, Open Approach (11/30/23) Bypass Sigmoid Colon to Cutaneous, Open Approach (05/04/23) Dilation of Left Ureter with Intraluminal Device, Via Natural or Artificial Opening Endoscopic (05/04/23) Drainage of Gallbladder with Drainage Device, Percutaneous Approach (03/30/25) Drainage of Pelvic Cavity, Percutaneous Approach (05/04/23) Excision of Sigmoid Colon, Open Approach (05/04/23) Excision of Small Intestine, Open Approach (05/04/23) Extraction of Endometrium, Via Natural or Artificial Opening, Diagnostic (02/28/25) Fluoroscopy of Left Kidney, Ureter and Bladder (05/04/23) Fluoroscopy of Superior Vena Cava, Guidance (03/30/25) Insertion of Infusion Device into Right Brachial Vein, Percutaneous Approach (11/30/23) Insertion of Infusion Device into Superior Vena Cava, Percutaneous Approach (03/30/25) Insertion of Tunneled Vascular Access Device into Chest Subcutaneous Tissue and Fascia, Percutaneous Approach (03/30/25) Inspection of Lower Intestinal Tract, Via Natural or Artificial Opening Endoscopic (02/28/25) Introduction of Vasopressor into Central Vein, Percutaneous Approach (01/15/25) Introduction of Vasopressor into Peripheral Vein, Percutaneous Approach (03/30/25) Occlusion of Left Uterine Artery with Intraluminal Device, Percutaneous Approach (02/28/25) Occlusion of Right Uterine Artery with Intraluminal Device, Percutaneous Approach (02/28/25) Release Peritoneum, Open Approach (11/30/23) Reposition Rectum, Open Approach (11/30/23) Transfusion of Nonautologous Red Blood Cells into Peripheral Vein, Percutaneous Approach (02/28/25) Ultrasonography of Superior Vena Cava, Guidance (03/30/25) Labs on day of discharge: Laboratory Results - last 24 hr 05/07/25 05/08/25 05/08/25 21:33 06:48 07:48 WBC 10.4 RBC 2.24 L Hgb 6.4 L* Hct 19.5 L* MCV 87.1 MCH 28.6 MCHC 32.8 RDW 16.5 H Plt Count 59 L MPV 10.2 Immature Gran % (Auto) 0.5 H Neut % (Auto) 80.4 H Lymph % (Auto) 14.3 L Smyth % (Auto) 2.7 Eos % (Auto) 1.2 Baso % (Auto) 0.9 Lymph # (Auto) 1.5 Smyth # (Auto) 0.3 Eos # (Auto) 0.1 Baso # (Auto) 0.1 Abs Immat Gran (auto) 0.05 H Absolute Neuts (auto) 8.4 H Absolute Nucleated RBC 0.000 Nucleated RBC % (auto) 0.0 Sodium 139 Potassium 3.9 Chloride 114 H Carbon Dioxide 13 L Anion Gap 16 BUN 8 L Creatinine 0.82 Estim Creat Clear Calc 60.3 Estimated GFR > 60 POC Glucose 105 91 Random Glucose 92 Calcium 7.8 L Phosphorus 1.2 L Magnesium 1.3 L* Total Bilirubin 1.0 AST 23 ALT < 6 Alkaline Phosphatase 70 Total Protein 5.6 L Albumin 3.1 L TSH 1.15 Blood Type Antibody Screen Crossmatch 05/08/25 05/08/25 05/08/25 08:26 11:48 15:30 WBC 12.0 H RBC 2.44 L Hgb 7.1 L Hct 20.9 L* MCV 85.7 MCH 29.1 MCHC 34.0 RDW 15.9 Plt Count 46 L MPV 10.2 Immature Gran % (Auto) Neut % (Auto) Lymph % (Auto) Smyth % (Auto) Eos % (Auto) Baso % (Auto) Lymph # (Auto) Smyth # (Auto) Eos # (Auto) Baso # (Auto) Abs Immat Gran (auto) Absolute Neuts (auto) Absolute Nucleated RBC 0.000 Nucleated RBC % (auto) 0.0 Sodium Potassium Chloride Carbon Dioxide Anion Gap BUN Creatinine Estim Creat Clear Calc Estimated GFR POC Glucose 84 Random Glucose Calcium Phosphorus Magnesium Total Bilirubin AST ALT Alkaline Phosphatase Total Protein Albumin TSH Blood Type O Positive Antibody Screen NEGATIVE Crossmatch See Detail 05/08/25 16:39 WBC RBC Hgb Hct MCV MCH MCHC RDW Plt Count MPV Immature Gran % (Auto) Neut % (Auto) Lymph % (Auto) Smyth % (Auto) Eos % (Auto) Baso % (Auto) Lymph # (Auto) Smyth # (Auto) Eos # (Auto) Baso # (Auto) Abs Immat Gran (auto) Absolute Neuts (auto) Absolute Nucleated RBC Nucleated RBC % (auto) Sodium Potassium Chloride Carbon Dioxide Anion Gap BUN Creatinine Estim Creat Clear Calc Estimated GFR POC Glucose 86 Random Glucose Calcium Phosphorus Magnesium Total Bilirubin AST ALT Alkaline Phosphatase Total Protein Albumin TSH Blood Type Antibody Screen Crossmatch Discharge Plan Discharge Anticipated Discharge Date/Time: 05/08/25 19:32 Patient Disposition: Xfer Acute Care Hospital Discharge Diagnosis: Partial complex status epilepticus Referrals: Joi Rebollar MD [Primary Care Provider, Internal Medicine] - 1 Week Discharge Medications: New cefepime in dextrose 5 % 2 gram/50 mL Piggyback 2 g IV Q8H 2 Days Qty: 24 0RF metronidazole in NaCl (iso-os) 500 mg/100 mL Piggyback 500 mg IV Q12H 20 Days Qty: 2400 0RF levetiracetam in NaCl (iso-os) 1,000 mg/100 mL Piggyback 1,000 mg IV Q12H Qty: 2400 0RF nystatin 100,000 unit/gram Ointment 1 appl topical BID 30 Days Qty: 15 0RF Protocol: Apply to: Apply to: Affected area diazepam 5 mg/mL solution 2 mg IM Q4H PRN (Reason: seizure activity) Qty: 50 0RF Continued mirtazapine 15 mg tablet 15 mg PO BEDTIME Discontinued atorvastatin 20 mg tablet 20 mg PO BEDTIME Qty: 90 3RF multivit with min-folic acid [Multivitamin Gummies] 200 mcg Tablet,Chewable 1 tab PO DAILY amiodarone 200 mg tablet 200 mg PO DAILY colchicine 0.6 mg tablet 0.3 mg PO DAILY Eliquis 5 mg tablet 5 mg PO BID esomeprazole magnesium [Nexium] 20 mg capsule,delayed release(DR/EC) 20 mg PO DAILY@0630 cyanocobalamin (vitamin B-12) [Vitamin B-12] 1,000 mcg Tablet 1,000 mcg PO DAILY potassium chloride 10 mEq capsule, extended release 10 meq PO BID magnesium oxide 200 mg magnesium tablet 400 mg PO BID calcium carb, citrate-vit D3 [Citracal-D3 Slow Release] 600 mg-12.5 mcg (500 unit) tablet extended release 1 tab PO DAILY Qty: 90 1RF ondansetron HCl 4 mg tablet 4 mg PO DAILY PRN (Reason: nausea and vomiting) Qty: 30 2RF Discharge Orders: Discharge Order (Routine); Ordered 05/08/25 Ordered By: Yasemin Vargas Diet: NPO Activity on Discharge: As tolerated Stand Alone Forms: Patient Portal Discharge page Print Language: Zimbabwean Care Plan Goals: Continuous video EEG monitor Health Concerns: See above Plan of Treatment: Video EEG monitoring Goals of care discussion-initiated Assessment: See above
[2025-05-08 19:27] LABS: Venous Blood Gas Refer to POC result
[2025-05-08 19:29] LABS: VBG HCO3 13 mmol/L (22-26); VBG O2 % Saturation 88.0 %
[2025-05-08] MEDS: Sodium Bicarbonate 8.4% 100 MEQ in Dextrose 5 % 900 ML IV (19:45)
[2025-05-08 19:57] LABS: INTERNATIONAL NORM RATIO 2.2 (0.9-1.1); Prothrombin Time 24.8 SEC (10.9-12.4)
--- NOTE | 2025-05-08 21:40 | PC.NURSE ---
Assumed care at 1900. During report, this RN was notified patient had been accepted to [facility]?for higher level of care. Upon assessment, patient alert but aphagic, only able to tell this RN yes , no , okay , and help . Difficult to assess mental status, though patient able to track and follow commands. SR/ST on tele, bicarb gtt started per NOV. Patient?is a very difficult stick, only?access is implanted?chest port. Lung sounds clear on RA. Abdomen soft and tender, ostomy to right abdomen. Drain to right lower back draining dark brown fluid. Patient incontinent of urine, no output noted by this RN. Skin macerated to ricky area and buttocks, triad applied to area. Extensive?bruising to arms from previous?IV infiltration sites. Abdominal dressings clean dry and intact, surgical team following. Patient notified she is to be transferred. Report called to [place] at [facility], Pablo-[id number]. EMS bedside report given without?issue. Patient transferred to [place] at approx 2029. See discharge summary and EMR for further details.
[2025-05-10 18:14] LABS: Lyme Disease DNA PCR NOT DETECTED (NOT DETECTED)
== END 2025-05-08 20:40 | disposition short-term general hospital (02) | DRG 862 ==
LOC: HO.ED 14:31 → HO.EDOVER 14:45 → HO.ICU 14:45 → HO.IMC 05-05 13:50
PROVIDERS: Hospitalist; Internal Medicine; Internal Medicine Critical Care Medicine; Internal Medicine Pulmonary Disease; Nurse Practitioner Family; Physician Assistant; Physician Assistant Medical; Physician Assistant Surgical; Admitting Provider Internal Medicine Critical Care Medicine; Emergency Provider Emergency Medicine; PCP Internal Medicine; Visit Provider Student in an Organized Health Care Education/Training Program
DX: T81.43XA Infection following a procedure, organ and space surgical site, initial encounter (principal); R57.1 Hypovolemic shock; R57.8 Other shock; K94.11 Enterostomy hemorrhage; D62 Acute posthemorrhagic anemia; R47.01 Aphasia; N17.9 Acute kidney failure, unspecified; I51.81 Takotsubo syndrome; K63.2 Fistula of intestine; I50.22 Chronic systolic (congestive) heart failure; I11.0 Hypertensive heart disease with heart failure; D69.59 Other secondary thrombocytopenia; R13.10 Dysphagia, unspecified; G40.901 Epilepsy, unspecified, not intractable, with status epilepticus; I49.3 Ventricular premature depolarization; I25.10 Atherosclerotic heart disease of native coronary artery without angina pectoris; I48.0 Paroxysmal atrial fibrillation; Z87.891 Personal history of nicotine dependence; Z79.01 Long term (current) use of anticoagulants; Z79.899 Other long term (current) drug therapy
CPT/HCPCS: 36415; 70450; 70496; 70498; 70551; 74176; 74177; 80048; 80053; 82040; 82533; 82803; 82947; 83605; 83690; 83735; 84100; 84443; 84484; 85025; 85027; 85610; 86850; 86900; 86901; 86923; 87040; 87070; 87077; 87186; 87205; 92507; 92523; 93005; 93306; 95816; 97110; 97167; 97530; 99284; J0613; J0692; J1171; J1644; J1836; J1953; J2020; J2250; J2405; J2470; J2543; J3374; J3475; J3480; J7120; J7168; P9016; P9017; P9047; Q9967

== ENCOUNTER → 2025-04-27 10:53 | Outpatient (BNV) | payer MEDICARE, SELFPAY | PROVIDERS: Admitting Provider Internal Medicine Critical Care Medicine; Emergency Provider Emergency Medicine; PCP Internal Medicine; Visit Provider Radiology Diagnostic Radiology | DX: K94.01 Colostomy hemorrhage (principal) | CPT/HCPCS: 74176 ==

== ENCOUNTER → 2025-04-27 11:43 | Outpatient (BNV) | payer MEDICARE, SELFPAY | PROVIDERS: Emergency Provider Emergency Medicine; PCP Internal Medicine; Visit Provider Internal Medicine Critical Care Medicine | DX: R57.8 Other shock (principal); K63.2 Fistula of intestine | CPT/HCPCS: 99291 ==

== ENCOUNTER → 2025-04-27 11:43 | Outpatient (BNV) | payer MEDICARE, SELFPAY | PROVIDERS: Emergency Provider Emergency Medicine; PCP Internal Medicine; Visit Provider Surgery | DX: S30.1XXA Contusion of abdominal wall, initial encounter (principal) | CPT/HCPCS: 99222; 99232 ==

== ENCOUNTER 2025-04-27 14:33 | Outpatient (BNV) | payer MEDICARE, SELFPAY | END 2025-05-06 00:08 | PROVIDERS: Admitting Provider Internal Medicine Critical Care Medicine; Emergency Provider Emergency Medicine; PCP Internal Medicine; Visit Provider Radiology Diagnostic Radiology | DX: R47.9 Unspecified speech disturbances (principal) | CPT/HCPCS: 70450; 70496; 70498 ==

== ENCOUNTER 2025-04-27 14:33 | Outpatient (BNV) | payer MEDICARE, SELFPAY | END 2025-05-07 08:00 | PROVIDERS: Admitting Provider Internal Medicine Critical Care Medicine; Emergency Provider Emergency Medicine; PCP Internal Medicine; Visit Provider Internal Medicine Cardiovascular Disease | DX: R00.0 Tachycardia, unspecified (principal) | CPT/HCPCS: 93010 ==

== ENCOUNTER 2025-04-27 14:33 | Outpatient (BNV) | payer MEDICARE, SELFPAY | END 2025-05-02 08:00 | PROVIDERS: Admitting Provider Internal Medicine Critical Care Medicine; Emergency Provider Emergency Medicine; PCP Internal Medicine; Visit Provider Internal Medicine | DX: R94.31 Abnormal electrocardiogram [ECG] [EKG] (principal) | CPT/HCPCS: 93010 ==

== ENCOUNTER 2025-04-27 14:33 | Outpatient (BNV) | payer MEDICARE, SELFPAY | END 2025-04-29 12:00 | PROVIDERS: Admitting Provider Internal Medicine Critical Care Medicine; Emergency Provider Emergency Medicine; PCP Internal Medicine; Visit Provider Internal Medicine | DX: I51.89 Other ill-defined heart diseases (principal); I51.7 Cardiomegaly; I36.1 Nonrheumatic tricuspid (valve) insufficiency; I42.8 Other cardiomyopathies | CPT/HCPCS: 93306 ==

== ENCOUNTER 2025-04-27 14:33 | Outpatient (BNV) | payer MEDICARE, SELFPAY | END 2025-04-30 08:00 | PROVIDERS: Admitting Provider Internal Medicine Critical Care Medicine; Emergency Provider Emergency Medicine; PCP Internal Medicine; Visit Provider Internal Medicine | DX: R94.31 Abnormal electrocardiogram [ECG] [EKG] (principal) | CPT/HCPCS: 93010 ==

== ENCOUNTER 2025-04-27 14:33 | Outpatient (BNV) | payer MEDICARE, SELFPAY | END 2025-05-01 08:00 | PROVIDERS: Admitting Provider Internal Medicine Critical Care Medicine; Emergency Provider Emergency Medicine; PCP Internal Medicine; Visit Provider Internal Medicine | DX: I49.3 Ventricular premature depolarization (principal) | CPT/HCPCS: 93010 ==

== ENCOUNTER 2025-04-27 14:33 | Outpatient (BNV) | payer MEDICARE, SELFPAY | END 2025-05-07 10:00 | PROVIDERS: Admitting Provider Internal Medicine Critical Care Medicine; Emergency Provider Emergency Medicine; PCP Internal Medicine; Visit Provider Psychiatry & Neurology Neurology | DX: R47.01 Aphasia (principal) | CPT/HCPCS: 95816 ==

== ENCOUNTER 2025-04-27 14:33 | Outpatient (BNV) | payer MEDICARE, SELFPAY | END 2025-05-01 16:01 | PROVIDERS: Admitting Provider Internal Medicine Critical Care Medicine; Emergency Provider Emergency Medicine; PCP Internal Medicine; Visit Provider Radiology Diagnostic Radiology | DX: Z48.03 Encounter for change or removal of drains (principal); K76.0 Fatty (change of) liver, not elsewhere classified; J90 Pleural effusion, not elsewhere classified; Z90.49 Acquired absence of other specified parts of digestive tract; J98.11 Atelectasis | CPT/HCPCS: 74177 ==

== ENCOUNTER 2025-04-27 14:33 | Outpatient (BNV) | payer MEDICARE, SELFPAY | END 2025-04-28 12:15 | PROVIDERS: Admitting Provider Internal Medicine Critical Care Medicine; Emergency Provider Emergency Medicine; PCP Internal Medicine; Visit Provider Internal Medicine | DX: R00.2 Palpitations (principal) | CPT/HCPCS: 93010 ==

== ENCOUNTER 2025-04-27 14:33 | Outpatient (BNV) | payer MEDICARE, SELFPAY | END 2025-05-06 08:00 | PROVIDERS: Admitting Provider Internal Medicine Critical Care Medicine; Emergency Provider Emergency Medicine; PCP Internal Medicine; Visit Provider Internal Medicine Cardiovascular Disease | DX: R00.0 Tachycardia, unspecified (principal) | CPT/HCPCS: 93010 ==

== ENCOUNTER 2025-04-27 14:33 | Outpatient (BNV) | payer MEDICARE, SELFPAY | END 2025-05-08 08:00 | PROVIDERS: Admitting Provider Internal Medicine Critical Care Medicine; Emergency Provider Emergency Medicine; PCP Internal Medicine; Visit Provider Internal Medicine Cardiovascular Disease | DX: R00.0 Tachycardia, unspecified (principal) | CPT/HCPCS: 93010 ==

== ENCOUNTER → 2025-04-27 14:33 | Outpatient (BNV) | payer MEDICARE, SELFPAY | PROVIDERS: Admitting Provider Internal Medicine Critical Care Medicine; Emergency Provider Emergency Medicine; PCP Internal Medicine; Visit Provider Internal Medicine | DX: G40.201 Localization-related (focal) (partial) symptomatic epilepsy and epileptic syndromes with complex partial seizures, not intractable, with status epilepticus (principal) | CPT/HCPCS: 99232; 99239; 99499 ==

== ENCOUNTER → 2025-04-27 14:33 | Outpatient (BNV) | payer MEDICARE, SELFPAY | PROVIDERS: Admitting Provider Internal Medicine Critical Care Medicine; Emergency Provider Emergency Medicine; PCP Internal Medicine; Visit Provider Internal Medicine Pulmonary Disease | DX: T81.43XA Infection following a procedure, organ and space surgical site, initial encounter (principal); K65.1 Peritoneal abscess; I25.10 Atherosclerotic heart disease of native coronary artery without angina pectoris; I48.92 Unspecified atrial flutter; Z93.2 Ileostomy status | CPT/HCPCS: 99232 ==

== ENCOUNTER → 2025-04-27 14:33 | Outpatient (BNV) | payer MEDICARE, SELFPAY | PROVIDERS: Admitting Provider Internal Medicine Critical Care Medicine; Emergency Provider Emergency Medicine; PCP Internal Medicine; Visit Provider Internal Medicine | DX: R57.8 Other shock (principal); I51.81 Takotsubo syndrome; I48.92 Unspecified atrial flutter; I49.3 Ventricular premature depolarization | CPT/HCPCS: 99223; 99233 ==

== ENCOUNTER → 2025-04-27 14:33 | Outpatient (BNV) | payer MEDICARE, SELFPAY | PROVIDERS: Admitting Provider Internal Medicine Critical Care Medicine; Emergency Provider Emergency Medicine; PCP Internal Medicine; Visit Provider Psychiatry & Neurology Neurology | DX: R47.01 Aphasia (principal) | CPT/HCPCS: 99222 ==

== ENCOUNTER 2025-06-11 16:11 | Emergency (ER) | payer MEDICARE, SELFPAY ==
[2025-06-11 16:21] VITALS: BP 102/50; PULSE 95; O2SAT 98
[2025-06-11 16:24] VITALS: BP 91/59; PULSE 92; RESP 18; TEMP 36.4; O2SAT 97
[2025-06-11 17:06] VITALS: BMI 20.2
--- NOTE | 2025-06-11 20:11 | ED.GENADULT ---
HPI - General Adult General Chief complaint: General Medical Stated complaint: LT PORT CHEST PROBLEM Time Seen by Provider: 06/11/25 19:18 Source: patient, RN notes reviewed and old records reviewed Mode of arrival: EMS Limitations: no limitations History of Present Illness ED Provider: Cedric HPI narrative: 65-year-old female past medical history significant for coronary artery disease, atrial fibrillation on Eliquis, heart failure, hypertension, hyperlipidemia, cardiomyopathy seizure disorder presents for evaluation of ?I need my Port-A-Cath flushed with heparin. Patient reports that she was admitted to [facility] in released about a week ago. She reports that her primary doctor did not give the visiting nurse any orders to flush the catheter with heparin. She gets the catheter flushed once a week with heparin She has 4 days overdue in his due to have labs tomorrow. She was told to come to the hospital to have her port flushed. She has no other complaints or concerns She reports feeling well Related Data Home Medications ?Medication ?Instructions ?Recorded ?Confirmed mirtazapine 15 mg tablet 15 mg PO BEDTIME 11/30/23 04/27/25 Previous Rx's ?Medication ?Instructions ?Recorded cefepime 2 gram/50 mL in dextrose 2 g IV Q8H 2 days #24 ea 05/08/25 5 % intravenous piggyback diazepam 5 mg/mL injection solution 2 mg (0.4 mL) IM Q4H PRN seizure 05/08/25 activity #50 mL levetiracetam 1,000 mg/100 mL in 1,000 mg (100 mL) IV Q12H #2,400 mL 05/08/25 sodium chloride(iso-osm) IV piggyback metronidazole 500 mg/100 mL in 500 mg IV Q12H 20 days #2,400 mL 05/08/25 sodium chlor(iso) intravenous piggyback nystatin 100,000 unit/gram topical 1 appl topical BID 30 days #15 05/08/25 ointment grams Allergies Allergy/AdvReac Type Severity Reaction Status Date / Time clams Allergy Severe Stomach Verified 06/11/25 17:12 Upset clavulanic acid (Augmentin) Allergy Unknown GI, Verified 06/11/25 17:12 Difficulty breathing codeine (CODEINE) Allergy Unknown SENSITIVIT Verified 06/11/25 17:12 Y erythromycin base Allergy Unknown GI, DIFF Verified 06/11/25 17:12 (Erythromycin Base) BREATHING Sulfa (Sulfonamide Allergy Unknown RASH Verified 06/11/25 17:12 Antibiotics) morphine (MORPHINE) AdvReac Severe Difficulty Verified 06/11/25 17:12 Breathing aspirin (Aspirin) AdvReac Mild STOMACH Verified 06/11/25 17:12 UPSET melatonin AdvReac Vomiting Verified 06/11/25 17:12 Review of Systems Constitutional: Constitutional: Denies body ache(s), Denies chills, Denies fever(s) and Denies headache(s) Eyes: Eyes: Denies blurry vision ENT: Denies vertigo, Denies dizziness and Denies headache(s) Cardiovascular: Cardiovascular: Denies chest pain Respiratory: Respiratory: Denies cough Gastrointestinal: Gastrointestinal: Denies abdominal pain Musculoskeletal: Musculoskeletal: Denies back pain Integumentary/Breasts: Skin/Breast: Denies rash Neurologic: Denies vertigo, Denies dizziness and Denies headache(s) [facility] Past Medical History Medical History CAD (coronary artery disease) Atrial flutter History of sigmoidoscopy Multinodular thyroid Chronic vomiting Hypocalcemia Iron deficiency anemia Hyponatremia Hypomagnesemia Acute cholecystitis History of acute cholecystitis History of pancreatitis Pancreatitis Insomnia Bilateral knee pain Polyarthralgia MARKIE (acute kidney injury) Back pain Arthritis History of transfusion of packed red blood cells Anemia Cardiomyopathy MARKIE (acute kidney injury) MARKIE (acute kidney injury) Anxiety Small bowel obstruction Myocardial infarction NSTEMI (non-ST elevated myocardial infarction) NSVT (nonsustained ventricular tachycardia) PVC (premature ventricular contraction) Hypertension Perforated diverticulum Irritable bowel syndrome with constipation Barretts esophagus GERD (gastroesophageal reflux disease) Surgical History Ileostomy in place History of insertion of tunneled central venous catheter (CVC) with port H/O insertion of cholecystostomy tube Status post embolization of uterine artery S/P colon resection PIC line (peripherally inserted central catheter) removal History of low anterior resection of rectum Status post cardiac catheterization H/O dilation and curettage History of exploratory laparotomy (05/11/23) S/P colostomy Colovesical fistula History of esophagogastroduodenoscopy (EGD) Hx of colonoscopy Family History Family History Father Colon cancer Congestive heart failure Paternal Aunt Colon cancer Mother Congestive heart failure Afib Social History Social History Household Members: None Housing: House Are you a primary foster care worker to a significant other at home: No Do you presently have visiting nurse or other home services: Yes Unable to assess alcohol history related to: Unknown Alcohol intake: never Comment: Pt refusing bed alarm Patient Tobacco Use Status: Former Tobacco user Tobacco use type: Cigarette Cigarette Packs Per Day: 0.5 Cigarettes Per Day: 10.0 Years Smoked: 25 Smoked in Last 30 Days: No e-Cigarette/Vaping Use: Former Use Second Hand Smoke Exposure: No Use of substances other than those prescribed or required for medical reasons: Unknown Substance Use Type: Marijuana Advance Directives: Yes Advance Directives on File: Yes Advance Directives Date on File: 12/29/23 service: No Cognitive needs: No Hearing needs: No Vision needs: Yes Physical Exam ED Vital Signs: Vital Signs - 24 hr 06/11/25 16:24 Temperature 97.6 F Pulse Rate 92 Respiratory Rate 18 Blood Pressure 91/59 L Pulse Oximetry 97 Oxygen Delivery Method Room Air BMI result Body Mass Index 20.2 Const General: healthy appearing, comfortable, no acute distress, alert and awake Orientation/consciousness: patient oriented x3 HENMT Head: Yes normocephalic and Yes atraumatic Eyes Eyelids: Yes eyelids normal Conjunctivae: conjunctivae normal Sclerae: sclerae normal Corneas: corneas normal Pupils: Equal, round and reactive pupils present EOM: EOMs intact bilaterally Neck Neck: Yes full ROM Chest Other: Port-A-Cath present in the left upper chest Resp Effort & Inspection: normal respiratory effort, able to speak in complete sentences and not labored GI Inspection: No distended Palpation (GI): Soft to palpation, not firm, nontender, no guarding and not rigid Skin General skin exam: elasticity normal Neuro General: patient oriented x3 Cranial nerves: Yes CN's II-XII intact bilaterally, Yes Equal, round and reactive pupils present and Yes Bilaterally intact EOM present Cognition (Neuro): normal cognition Extrem Other: Moving all extremities well without any obvious deformities Medications Administered Discontinued Medications Generic Name Dose Route Start Last Admin Trade Name Freq PRN Reason Stop Dose Admin Heparin Sodium (Porcine) 500 0 unit 06/11/25 19:28 06/11/25 20:01 unit/ Sodium Chloride 5 ml IVFLUSH 06/11/25 19:29 500 unit ONCE ONE Administration Medical Decision Making Medical Decision Making MDM Narrative: 65-year-old female presents for evaluation of a heparin flush for her Port-A-Cath so that she may have labs tomorrow. She reports that she just received the orders for future flushes from her primary doctor. We will flush her Port-A-Cath and she will be discharged back home. She has no somatic complaints, she is afebrile. The patient does have a chest x-ray from March of this year showing the catheter in the correct location Differential Diagnosis Differential Diagnoses: The differential diagnosis associated with the presentation includes Port-A-Cath in place. Medication noncompliance Hardware failure Discharge Plan Discharge Clinical Impression: Port-A-Cath in place Patient Disposition: Home, Self-Care Additional Instructions: Your Port-A-Cath is flushed with heparin. It is okay to use for labs tomorrow. Follow up with your primary doctor, return for new or worsening symptoms Prescriptions: No Action mirtazapine 15 mg tablet 15 mg PO BEDTIME cefepime in dextrose 5 % 2 gram/50 mL Piggyback 2 g IV Q8H 2 Days Qty: 24 0RF metronidazole in NaCl (iso-os) 500 mg/100 mL Piggyback 500 mg IV Q12H 20 Days Qty: 2400 0RF levetiracetam in NaCl (iso-os) 1,000 mg/100 mL Piggyback 1,000 mg IV Q12H Qty: 2400 0RF nystatin 100,000 unit/gram Ointment 1 appl topical BID 30 Days Qty: 15 0RF Protocol: Apply to: Apply to: Affected area diazepam 5 mg/mL solution 2 mg IM Q4H PRN (Reason: seizure activity) Qty: 50 0RF Print Language: Telugu
--- NOTE | 2025-06-11 20:15 | PC.NURSE ---
Port flushed as per order. port intact and patent.
[2025-06-11 20:46] VITALS: BP 99/58; PULSE 85; RESP 18; O2SAT 98
--- NOTE | 2025-06-11 20:59 | PC.NURSE ---
Awaiting EMS transport
[2025-06-11 21:58] VITALS: BP 99/58; PULSE 85; RESP 18; TEMP 36.4; O2SAT 98
== END 2025-06-11 21:59 | disposition home or self-care (01) ==
PROVIDERS: Emergency Provider Emergency Medicine; PCP Internal Medicine
DX: T82.818A Embolism due to vascular prosthetic devices, implants and grafts, initial encounter (principal); T82.524A Displacement of infusion catheter, initial encounter; Y82.8 Other medical devices associated with adverse incidents; Y92.9 Unspecified place or not applicable; I25.10 Atherosclerotic heart disease of native coronary artery without angina pectoris; Z79.899 Other long term (current) drug therapy; Z87.891 Personal history of nicotine dependence
CPT/HCPCS: 99284; J1642

== ENCOUNTER 2025-06-12 18:32 | Outpatient (REF) | payer MEDICARE, SELFPAY ==
[2025-06-12 18:37] LABS: MANUAL DIFF FLAG NO
[2025-06-12 18:39] LABS: Hematocrit 30.1 % (37.0-47.0); Hemoglobin 9.7 g/dl (12.0-16.0); Imm Gran Abs Auto 0.04 X10*3/uL (0.00-0.03); Imm Gran Pct Auto 0.4 % (0.0-0.4); Lymphocytes Absolute Auto 2.3 X10*3/uL (1.2-4.9); Mean Corpuscular HGB Conc 32.2 g/dl (31.0-35.0); Mean Corpuscular Hemoglobin 29.2 pg (27.0-33.0); Mean Corpuscular Volume 90.7 fL (80.0-98.0); NRBC Abs Auto 0.000 X10*3/uL (0.0-0.012); NRBC Pct Auto 0.0 /100WBC (0.0-0.2); Platelet Count 340 X10*3/uL (160-400); Red Blood Count 3.32 X10*6/uL (4.20-5.50); White Blood Count 11.2 X10*3/uL (4.8-10.8)
[2025-06-12 19:37] LABS: Anion Gap 14 (12-20); Blood Urea Nitrogen 46 mg/dL (9-16); Calcium 8.7 mg/dL (8.4-10.2); Carbon Dioxide 24 mmol/L (22-29); Chloride 101 mmol/L (96-108); Estimated Glomerular Filt Rate 35; Lipase 283 U/L (8-78); Magnesium 1.4 mg/dL (1.6-2.6); Potassium 3.3 mmol/L (3.3-5.1); Sodium 136 mmol/L (135-145)
== END 2025-06-12 18:33 | disposition home or self-care (01) ==
LOC: HO.HVNA 18:32
PROVIDERS: Visit Provider Internal Medicine
DX: K65.1 Peritoneal abscess (principal); D50.9 Iron deficiency anemia, unspecified; E83.42 Hypomagnesemia; Z87.19 Personal history of other diseases of the digestive system
CPT/HCPCS: 36415; 80048; 83690; 83735; 85025

== ENCOUNTER 2025-06-16 15:42 | Outpatient (AMB) | payer MEDICARE, SELFPAY ==
--- OUTSIDE RECORDS SUMMARY | 2025-06-16 15:45 | XMS_ITS | Encounter Summary ---
Author Organization [facility] Address [address] [place] [id number] Phone Care Team Providers Care Parking Lot Laborer Name Role Phone Nessa Hillman NP Primary Care Provider [phone] Lupillo Sinclair MD Unavailable Encounter Details Date Type Department Care Team (Late st Contact Info) Description 02/04/2025 Procedure Pass [facility] Imaging - RF/IR [address] [facility] [place] [address] Social History Tobacco Use Types Packs/Day Years [...] as of this encounter Plan of Treatment Not on file documented as of this encounter Visit Diagnoses Not on filedocumented in this encounter Additional Health Concerns 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 It is not the complete legal health record.[facility]
--- OUTSIDE RECORDS SUMMARY | 2025-06-16 15:45 | XMS_ITS | Encounter Summary ---
Author Organization [facility] Address [address] [place] [address] Phone Care Team Providers Care Biofuels Product Development Manager Name Role Phone Nessa Hillman NP Primary Care Provider +1- [phone] Lupillo Sinclair MD Unavailable [phone] Encounter Details Date Type Department Care Team (Late st Contact Info) Description 01/31/2025 Procedure Pass [facility] - RF/IR [address] [facility], [address] [place] [address] Social History Tobacco Use Types Packs/Day Years [...] documented as of this encounter Care Teams Biofuels Product Development Manager Relationship Specialty Start Date End Date Nessa Hillman NP [address] [place] [address] PCP - General Nurse Practitioner 06/03/24 Lupillo Sinclair MD [address] [address] Cardiology 12/24/24 documented as of this encounter Additional Source Comments The information contained in this document represents components of the legal health record. It is not the complete legal health record.[facility]
--- OUTSIDE RECORDS SUMMARY | 2025-06-16 15:45 | XMS_ITS | Encounter Summary ---
Author Organization [facility] Address [address] [place] [address] Phone Care Team Providers Care Field Marketing Team Leader Name Role Phone Nessa Hillman NP Primary Care Provider [phone]- [phone] Lupillo Sinclair MD Unavailable [phone] Encounter Details Date Type Department Care Team (Late st Contact Info) Description 02/03/2025 Procedure Pass [facility] [place] [address] [facility], 6th [place] [address] Social History Tobacco Use Types Packs/Day Years [...] documented as of this encounter Care Teams Field Marketing Team Leader Relationship Specialty Start Date End Date Nessa Hillman NP [address] [place] [address] PCP - General Nurse Practitioner 06/03/24 Lupillo Sinclair MD [address] [address] Cardiology 12/24/24 documented as of this encounter Additional Source Comments The information contained in this document represents components of the legal health record. It is not the complete legal health record.[facility]
--- OUTSIDE RECORDS SUMMARY | 2025-06-16 15:45 | XMS_ITS | Encounter Summary ---
Author Organization [facility] Address [address] [place] [address] Phone Care Team Providers Care Directional Driller Name Role Phone Nessa Hillman NP Primary Care Provider [phone]- [phone] Lupillo Sinclair MD Unavailable [phone] Encounter Details Date Type Department Care Team (Late st Contact Info) Description 01/31/2025 Procedure Pass [facility] [place], [place] [address] [facility], 6th [place] [address] Social History Tobacco Use Types Packs/Day Years [...] documented as of this encounter Care Teams Directional Driller Relationship Specialty Start Date End Date Nessa Hillman NP [address] [place] [address] PCP - General Nurse Practitioner 06/03/24 Lupillo Sinclair MD [address] [address] Cardiology 12/24/24 documented as of this encounter Additional Source Comments The information contained in this document represents components of the legal health record. It is not the complete legal health record.[facility]
--- OUTSIDE RECORDS SUMMARY | 2025-06-16 15:46 | XMS_ITS ---
Author Organization [facility] Care Team Providers Care Export Sales Assistant Name Role Phone Mayur, Pippa Mcelroy Unavailable Unavailable Unique Fritz Unavailable Unavailable Joanna Webster Unavailable Unavailable Luzmaria Ruiz Unavailable Unavailable Allergies and adverse reactions Code CodeSystem Substance Reaction Severity StartDate Concern Status 449399170 SNOMED CT Sulfa Antibiotics Unknown 05/05/2020 active Shell Fish Unknown 05/05/2020 active Iodinated radio contrast dye Unknown 05/05/2020 active 5640 RXNORM Ibuprofen Unknown 05/05/2020 active 4053 RXNORM Erythromycin Unknown 05/05/2020 active Augmentin Unknown 05/05/2020 active 1191 RXNORM Aspirin Unknown 05/05/2020 active Care Team Name Role Address Phone Organization Dates Pippa Merchant PCP [address] [place] [address], [facility] (Office): : [facility] 05/05/2020 - 05/07/2020 Unique Fritz [address] [place] [address], [facility] (Office): : [facility] 05/05/2020 - 05/07/2020 Joanna Webster [address] [place] [address], [facility] (Office): : [facility] 05/05/2020 - 05/07/2020 Luzmaria Ruiz [address] [place] [address], [address], [place] (Office): : [facility] 05/05/2020 - 05/07/2020 Goals Section Goals Description Status Target Date : SKIN IMPAIRMENT- [...] 0 No delirium ind icated PHQ-9 [id number] Insurance Providers Plan of Treatment Section Interventions Intervention Code Code System Display Name Proposed D ate Problems Problem # Description Date of onset Resolved Date Code CodeSystem Concern Status 1 PAIN IN RIGHT LOWER LEG 05/06/[address] active 2 ESSENTIAL (PRIMARY) HYPERTENSION 05/05/[address] active 3 GASTRO-ESOPHAGEAL REFLUX DISEASE WITHOUT ESOPHAGITIS 05/05/[address] active 4 HYPERLIPIDEMIA, UNSPECIFIED 05/05/[address] active 5 MUSCLE WEAKNESS (GENERALIZED) 05/05/[address] active 6 OTHER ABNORMALITIES OF GAIT AND MOBILITY 05/05/[address] active 7 OTHER SPECIFIED ARTHRITIS, MULTIPLE SITES 05/05/[address] active 8 PRIMARY OSTEOARTHRITIS, UNSPECIFIED SITE 05/05/[address] active 9 UNSTEADINESS ON FEET 05/05/[address] active 10 WEAKNESS 05/05/[address] active Reason for Referral No Reasons for Referral Entered Social History Social History Observation Description Start Date End Date Code Code System Current Smoking Status Tobacco smoking consumption unknown 049320346 SNOMED CT Sex Assigned At Female 1960 84035-0 [facility] Gender Identity Sexual Orientation Vital Signs Code Code System Vitals Name Values and Units Timing Information 9279-1 [facility] Respiratory Rate Value=16.0 Units=/m in 05/07/2020 8462-4 [facility] Blood Pressure-Diastolic Value=76 Un its=mmHg 05/07/2020 8480-6 [facility] Blood Pressure-Systolic Zjxic=088 Un its=mmHg 05/07/2020 8310-5 [facility] Body Temperature Value=97.3 Units= F 05/07/2020 8867-4 [facility] Heart rate Value=60.0 Units=/min 11/2019 95234-4 [facility] O2 % BldC Oximetry Value=95.0 Units= % 05/07/2020 68072-5 [facility] Pain Level Value=0.0 05/07/2020
--- OUTSIDE RECORDS SUMMARY | 2025-06-16 15:46 | XMS_ITS | Encounter Summary ---
Author Organization [facility] Address [address] [place] [address] Phone Care Team Providers Care Special Delivery Clerk Name Role Phone Nessa Hillman NP Primary Care Provider [phone]- [phone] Lupillo Sinclair MD Unavailable [phone] Encounter Details Date Type Department Care Team (Late st Contact Info) Description 01/26/2025 Procedure Pass [facility] [place] - RF/IR [address] [facility], 2nd [place] [address] Social History Tobacco Use Types Packs/Day Years [...] PM EDT documented as of this encounter Functional Status * Calculated C-SSRS Risk Score (Lifetime/Recent) Answer Date of Assessment Author No Risk Indicated 01/26/2025 12:00 AM EDT Lulu Zhang RN * [place] Suicide Severity Rating Scale (Screener/Recent Self-Report) Question Answer Date of Assessment Author 1. Wish to be (Past 1 Month) No 01/26/2025 12:00 AM EDT Lulu Zhang, MECCA 2. Non-Specific Active Suicidal Thoughts (Past 1 Month) No 01/26/2025 12:00 AM EDT Lulu Zhang, MECCA 6. 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 It is not the complete legal health record.[facility]
--- OUTSIDE RECORDS SUMMARY | 2025-06-16 15:46 | XMS_ITS | Encounter Summary ---
Author Organization [facility] Address [address] [place] [address] Phone Care Team Providers Care As400 Analyst Name Role Phone Nessa Hillman NP Primary Care Provider [phone]- [phone] Lupillo Sinclair MD Unavailable [phone] Encounter Details Date Type Department Care Team (Late st Contact Info) Description 01/26/2025 Procedure [place] [facility] [place] [address] [facility], 2nd [place] [address] Social History Tobacco Use Types Packs/Day Years [...] 12:00 AM EDT Lulu Zhang RN * [place] Suicide Severity Rating Scale (Screener/Recent Self-Report) Question [...] documented as of this encounter Care Teams As400 Analyst Relationship Specialty Start Date End Date Nessa Hillman NP [address] [place] [address] PCP - General Nurse Practitioner 06/03/24 Lupillo Sinclair MD [address] [address] Cardiology 12/24/24 documented as of this encounter Additional Source Comments The information contained in this document represents components of the legal health record. It is not the complete legal health record.[facility]
--- OUTSIDE RECORDS SUMMARY | 2025-06-16 15:46 | XMS_ITS | Encounter Summary ---
Author Organization [facility] Address [address] [place] [address] Phone Care Team Providers Care Inspector Production Plastic Parts Name Role Phone Nessa Hillman NP Primary Care Provider +1- [phone] Lupillo Sinclair MD Unavailable [phone] Encounter Details Date Type Department Care Team (Late st Contact Info) Description 01/26/2025 Procedure [place] [facility] [place] [address] [facility], 6th [place] [address] Social History Tobacco Use Types Packs/Day Years [...] 12:00 AM EDT Lulu Zhang RN * [place] Suicide Severity Rating Scale (Screener/Recent Self-Report) Question [...] documented as of this encounter Care Teams Inspector Production Plastic Parts Relationship Specialty Start Date End Date Nessa Hillman NP [address] [place] [address] PCP - General Nurse Practitioner 06/03/24 Lupillo Sinclair MD [address] [address] Cardiology 12/24/24 documented as of this encounter Additional Source Comments The information contained in this document represents components of the legal health record. It is not the complete legal health record.[facility]
--- OUTSIDE RECORDS SUMMARY | 2025-06-16 15:46 | XMS_ITS | Encounter Summary ---
Author Organization [facility] Address [address] [facility] [address] [place] [address] Phone Care Team Providers Care Model Engine Mechanic Name Role Phone Nessa Hillman NP Primary Care Provider +1- [phone] Lupillo Sinclair MD Unavailable [phone] Encounter Details Date Type Department Care Team (Late st Contact Info) Description 01/25/2025 Procedure Pass [facility] [place] [address] [place] [address] Social History Tobacco Use Types Packs/Day Years [...] 12:00 AM EDT Lulu Zhang RN * [place] Suicide Severity Rating Scale (Screener/Recent Self-Report) Question Answer Date of Assessment Author 1. Wish to be (Past 1 Month) No 01/26/2025 12:00 AM EDT Lulu Zhang RN 2. Non-Specific Active Suicidal Thoughts (Past 1 Month) No 01/26/2025 12:00 AM EDT Lulu Zhang RN 6. 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 It is not the complete legal health record.[facility]
--- OUTSIDE RECORDS SUMMARY | 2025-06-16 15:46 | XMS_ITS | Clinical Summary ---
Author Organization [facility] Address [address] [place] [address] Phone Care Team Providers Care Co Director Name Role Phone Nsesa Hillman NP Primary Care Provider [phone] Lupillo Sinclair MD Unavailable [phone] Allergies Active Allergy Reactions Criticality Noted Date Comments Aspirin 03/23/2017 Other reaction(s): bleeding Amoxicillin-Pot Clavulanate 03/23/2017 Other reaction(s): stomach, violent Azithromycin 03/23/2017 Other reaction(s): swelling, hard to breath Codeine 03/23/2017 Other reaction(s): stomach pain Nsaids (Non-Steroidal Anti-Inflammatory Drug) 06/08/2018 Pt takes motrin at this time 12/24/24 Shellfish Containing Products Unknown 05/05/2020 Sulfa (Sulfonamide Antibiotics) 03/23/2017 Other reaction(s): rash Trazodone 01/07/2025 QT prolongation Medications fluticasone propionate (FLONASE) 50 mcg/actuation nasal spray 1 spray in each nostril Nasally Once a day Active Medication-Free Text Calcium Active atorvastatin (LIPITOR) 20 MG tablet Take 1 tablet (20 mg total) by mouth daily. 90 tablet 5 3 Active Additional Information Patient taking differently:20 mg OralNightly, Reported on 01/27/2025 mirtazapine (REMERON) 7.5 MG tablet Take 15 mg by mouth. 4 Active pediatric multivitamin (POLY--VIRY) chewable tablet Take 1 tablet by mouth daily. Active carisoprodol (SOMA) 350 MG tablet Take 350 mg by mouth nightly at bedtime. Active MAGNESIUM ORAL Take 800 mg by mouth nightly at bedtime. Active acetaminophen (TYLENOL) 500 MG tablet Take 2 tablets (1,000 mg total) by mouth every 8 (eight) hours as needed for pain (specific location in comments). 5 Active HYDROmorphone (DILAUDID) 2 MG tablet Take 0.5-1 tablets (1-2 mg total) by mouth every 8 (eight) hours as needed for pain (specific location in comments). Partial fill ok 15 tablet 5 Active amiodarone (PACERONE) 200 MG tablet Take 1 tablet (200 mg total) by mouth daily. 30 tablet 5 Active gabapentin (NEURONTIN) 100 MG capsule Take 1 capsule (100 mg total) by mouth every 8 (eight) hours for 7 days. 21 capsule 5 Active apixaban (ELIQUIS) 5 mg tablet Take 1 tablet (5 mg total) by mouth 2 (two) times a day. 60 tablet 5 Active ondansetron (ZOFRAN) 4 MG tablet Take 1 tablet (4 mg total) by mouth every 12 (twelve) hours as needed for nausea. 5 tablet 5 Active colchicine (COLCRYS) 0.6 mg tablet Take 1 tablet (0.6 mg total) by mouth daily. 30 tablet 2 5 025 Active Problems Problem Noted Date Diagnosed Date Paroxysmal atrial fibrillation 01/26/2025 Hernia of abdominal cavity 01/07/2025 Takotsubo cardiomyopathy 07/26/2023 Assessment & Plan (10/10/2023 1:29 PM EST): It appears she had an NSTEMI and a Takotsubo's cardiomyopathy likely in the setting of sepsis and demand ischemia. She did have a cardiac catheterization at [facility] that took place in May 2023 which showed no coronary obstructive disease. Her most recent echocardiogram shows recovery in her ejection fraction 55-60% which was similar to her previous prior to her Takotsubo's cardiomyopathy. Obesity (BMI 30-39.9) 03/05/2020 Assessment & Plan (03/05/2020 7:51 AM EDT): BMI 31.28. He has lost 14 pounds since her last visit in September. This was accomplished through decreasing snacking. Graduated her and encouraged her to continue. Discussed importance of leading heart healthy lifestyle with regular exercise of 30 minutes daily, Mediterranean diet, restriction of sodium intake, and maintenance of ideal body weight. HTN (hypertension) 06/08/2018 Assessment & Plan (10/10/2023 1:28 PM EST): Her blood pressure is 134/76 here in the office. She is on carvedilol 6.25 mg twice daily, hydrochlorothiazide 25 mg daily, losartan 25 mg daily. She will continue these medications without change. She is encouraged follow heart healthy diet including low sodium and to continue being active though her exercise is limited. Assessment & Plan (03/05/2020 7:47 AM EDT): Pressure goal of less than 130/90. Currently goal at goal. Continue with hydrochlorothiazide. Repeat her BMP today to reevaluate kidney function. Assessment & Plan (09/10/2018 9:06 AM EST): Her blood pressures well controlled today on the current medications. Assessment & Plan (06/08/2018 5:33 PM EDT): -Blood pressure improved upon recheck in the office today, however remains somewhat elevated. Per her home blood pressure checks systolics have been in the 140s. She continues to smoke cigarettes also and this was reviewed with her. She also does not eat a necessarily low-salt diet, nor exercise. The importance of working on lifestyle modifications was reviewed with her and she indicates understanding. -She also has a family history of abdominal aortic aneurysm, and blood pressure should be controlled. -She has not been taking her Lasix necessarily every day due to her work schedule. However I encouraged her to continue with Lasix 20 mg daily, lisinopril 30 mg daily, Toprol-XL 150 mg daily. INCREASE amlodipine to 10 mg daily. She will see how this improves her blood pressures. -She will follow-up in the office in 3 months, sooner as needed. Tobacco use 06/08/2018 Assessment & Plan (10/10/2023 1:29 PM EST): She no longer is using tobacco and has quit. She was congratulated on this and is strongly encouraged to continue refraining from using tobacco. Assessment & Plan (03/05/2020 7:48 AM EDT): Counseling for smoking cessation was offered. Patient is not interested. She states that she has tried everything . Is currently smoking 1/2 pack/day. Assessment & Plan (09/10/2018 9:06 AM EST): We discussed at length the importance of quitting smoking. Assessment & Plan (06/08/2018 5:34 PM EDT): -She continues to smoke cigarettes and has done so long-term. Reviewed the link between elevated blood pressure and tobacco use long-term and she indicates understanding. She is not motivated to quit at this time. Hyperlipidemia 06/08/2018 Assessment & Plan (10/10/2023 1:29 PM EST): Continue on atorvastatin 20 mg daily. Assessment & Plan (09/10/2018 9:06 AM EST): Her lipids have been excellent on the atorvastatin. Assessment & Plan (06/08/2018 5:38 PM EDT): -she continues on atorvastatin. Well-controlled LDL and cholesterol panel from January. Reviewed diet and exercise during the visit, and she indicates understanding that she needs to work on this. Continue to be followed by PCP. Family history of abdominal aortic aneurysm 01/2018 Assessment & Plan (09/10/2018 9:06 AM EST): Her vascular studies and stress tests in the past have been normal. Assessment & Plan (06/08/2018 5:36 PM EDT): -Family history of abdominal aortic aneurysm in her father, which was repaired. No echocardiogram on file, and she indicates that she has not had one done recently, if at all. I have ordered this to be completed prior to the next visit to start. She may also need a CT scan which was reviewed with her. This will be discussed at the next visit in about 3 months time. I have also discussed the importance of maintaining a well controlled blood pressure and she should also continue to work on lifestyle modifications. Benign essential hypertension 06/08/2018 GERD (gastroesophageal reflux disease) Encounters Date Type Department Care Team Description 03/27/2025 7:16 AM EDT - 03/27/2025 11:59 PM EDT Hospital Encounter [facility] Laboratory [address] [place] [address] Nicole Bragg MD Discharge Disposition: Home or Self Care 03/25/2025 8:37 AM EDT - 03/25/2025 11:59 PM EDT Hospital Encounter [facility] Laboratory [address] [place] [address] Nicole Bragg MD Discharge Disposition: Home or Self Care 03/25/2025 Transcribe Orders [facility] Specimen Processing [address] [place] [address] Nicole Bragg MD Leukocytosis, unspecified type (Primary Dx) 03/24/2025 10:15 AM EDT - 03/24/2025 11:59 PM EDT Hospital Encounter [facility] Laboratory [address] [place] [address] Nicole Bragg MD Discharge Disposition: Home or Self Care 03/24/2025 Transcribe Orders [facility] Specimen Processing [address] [place] [address] Nicole Bragg MD Peritoneal abscess (Primary Dx) 03/21/2025 7:38 AM EDT - 03/21/2025 11:59 PM EDT Hospital Encounter [facility] Laboratory [address] [place] [address] Nicole Bragg MD Discharge Disposition: Home or Self Care 03/21/2025 Transcribe Orders [facility] Laboratory [address] [place] [address] Nicole Bragg MD Diarrhea, unspecified type (Primary Dx) 03/21/2025 Transcribe Orders [facility] Specimen Processing [address] [place] [address] Nicole Bragg MD Hypertension, unspecified type (Primary Dx) from Last 3 Months Family History Medical History Relation Comments CV disease Mother 2 Relation Status Comments Mother 1 Alive Mother 2 Social History Tobacco Use Types Packs/Day Years Used Date Smoking Tobacco: Former Cigarettes 1.1 80.8 0 09/04/1976 - 05/05/2024 Smokeless Tobacco: Never Tobacco Cessation:Counseling Given: Not Answered Comments:quit smoking may 05, 2023 Alcohol Use Standard Drinks/Week Comments Never 0 [...] Orientation Straight 06/03/2024 2: 20 PM EDT Last Filed Vital Signs Vital Sign Reading Time Taken Comments Blood Pressure 124/63 02/17/2025 11:39 AM EDT Pulse 97 02/17/2025 11:39 AM EDT Temperature 36.6 C (97.9 F) 02/17/2025 11:39 AM EDT Respiratory Rate 16 02/17/2025 11:39 AM EDT Oxygen Saturation 97% 02/17/2025 11:39 AM EDT Inhaled Oxygen Concentration - - Weight 75.3 kg (166 lb 0.1 oz) 01/25/2025 11:11 PM EDT Height 157.5 cm (5' 2 ) 01/25/2025 11:11 PM EDT Body Mass Index 30.36 01/25/2025 11:11 PM EDT Plan of Treatment Health Maintenance Due Date Last Done Comments DEPRESSION SCREENING 1971 HEPATITIS C SCREENING 1977 HEPATITIS A VACCINES (1 of 2 - Risk 2-dose series) 1978 COLOGUARD 02/07/2004 FIT TEST 02/07/2004 FOBT 02/07/2004 VIRTUAL COLONOSCOPY 02/07/2004 LUNG CANCER SCREENING (LDCT Only) 2009 MAMMOGRAM 12/07/2015 12/06/2013 LIPID PANEL 09/11/2020 09/11/2015 COLONOSCOPY 04/06/2022 04/06/2012 OSTEOPOROSIS SCREENING INITIAL (ONE-TIME) 02/07/2024 Adult Td,Tdap Booster 05/23/2024 05/23/2014 BLOOD PRESSURE 12/11/2024 06/12/2024 INFLUENZA VACCINE (#1) 2025 , 06/06/2023, 06/28/2022, Additional history exists COVID-19 VACCINE ( season) 2025 06/30/2024, 10/01/2022, 07/10/2021, Additional history exists SMOKING Hx and SMOKELESS TOBACCO SCREENING 01/07/2026 01/07/2025 SCREENING FOR DIABETES 03/27/2028 03/27/2025 COLORECTAL CANCER SCREENING 08/15/2029 SIGMOIDOSCOPY 08/15/2029 08/15/2024 RSV VACCINE Completed 06/01/2024 ZOSTER VACCINES Completed 09/14/2024, 06/30/2024 PNEUMOCOCCAL VACCINES (50+ years) Completed 12/19/2024 HIB VACCINES Aged Out No longer eligi ble based on patient's age to complete this topic MENINGOCOCCAL VACCINES (ACWY) Aged Out No longer eligible based on patient's age to complete this topic MENINGOCOCCAL VACCINES (B) Aged Out N o longer eligible based on patient's age to complete this topic Medical Devices Not on file Procedures Procedure Name Priority Date/Time Associated Diagnosis Comments COMPREHENSIVE METABOLIC PANEL Routine 03/27/2025 5:56 AM EDT Anemia, unspecified type Atrial fib/flutter, transient AMYLASE Routine 03/27/2025 5:56 AM EDT Anemia, unspecified type Atrial fib/flutter, transient LIPASE Routine 03/27/2025 5:56 AM EDT Anemia, unspecified type Atrial fib/flutter, transient CBC AND DIFFERENTIAL Routine 03/27/2025 5:56 AM EDT Anemia, unspecified type Atrial fib/flutter, transient MAGNESIUM Routine 03/27/2025 5:56 AM EDT Anemia, unspecified type Atrial fib/flutter, transient CBC AND DIFFERENTIAL Routine 03/25/2025 6:15 AM EDT Leukocytosis, unspecified type MAGNESIUM Routine 03/24/2025 6:57 AM EDT Peritoneal abscess CBC Routine 03/24/2025 6:57 AM EDT Peritoneal abscess COMPREHENSIVE METABOLIC PANEL Routine 03/24/2025 6:57 AM EDT Peritoneal abscess C. DIFFICILE PCR Routine 03/21/2025 6:20 AM EDT Diarrhea, unspecified type IRON AND IRON BINDING CAPACITY Routine 03/21/2025 6:05 AM EDT Hypertension, unspecified type FERRITIN Routine 03/21/2025 6:05 AM EDT Hypertension, unspecified type FOLATE Routine 03/21/2025 6:05 AM EDT Hypertension, unspecified type CBC Routine 03/21/2025 6:05 AM EDT Hypertension, unspecified type COMPREHENSIVE METABOLIC PANEL Routine 03/21/2025 6:05 AM EDT Hypertension, unspecified type ENDOSCOPY, SIGMOID 08/15/2024 9: 33 AM EST OUTSIDE LDL Routine 09/11/2015 from Last 3 Months or Most Recently Relevant to Health Maintenance Results * (ABNORMAL) Comprehensive metabolic panel (03/27/2025 5:56 AM EDT) Only the most recent of3 resultswithin the time period is included. SODIUM 133 133 - 146 mmol/L [facility] POTASSIUM 4.5 3.3 - 5.1 mmol/L [facility] CHLORIDE 95(L) 96 - 108 mmol/L [facility] CO2 21 21 - 35 mmol/L [facility] BUN 32(H) 6 - 19 mg/dL [facility] CREATININE 1.50 0.5 - 1.5 mg/dL [facility] GLUCOSE 102(H) 70 - 99 mg/dL [facility] ALBUMIN 3.6(L) 3.9 - 4.8 g/dL [facility] TOTAL PROTEIN 8.0 6.5 - 8.0 g/dL [facility] CALCIUM 8.8 8.4 - 10.3 mg/dL [facility] ALKALINE PHOSPHATASE 311(H) 39 - 117 U/L [facility] TOTAL BILIRUBIN 0.5 0.0 - 1.2 mg/dL [facility] AST 98(H) 0 - 37 U/L [facility] ALT 103(H) 0 - 40 U/L [facility] GLOBULIN 4.4 1 - 4.8 g/dL [facility] EGFR 38(L) >59 mL/min/1.7 3m2 [facility] Comment:Estimated glomerular filtration rate calculated using the CKD-EPI refit equation. ANION GAP 22(H) 10 - 20 mmol/L [facility] 03/27/2025 5:56 AM EDT 03/27/2025 7:24 AM EDT us Nicole Bragg MD LAB BLOOD ORDERABLES Final Res ult Performing Organization Address City/State/[facility] Co de Phone Number [address] [address] * (ABNORMAL) CBC and differential (03/27/2025 5:56 AM EDT) Only the most recent of2 resultswithin the time period is included. WBC 16.97(H) 4.00 - 11.00 K/uL [facility] RBC 4.26 4.00 - 5.20 M/uL [facility] HGB 12.2 12.0 - 16.0 g/dL [facility] HCT 38.0 36.0 - 46.0 % [facility] PLT 285 150 - 450 K/uL [facility] MCV 89.2 80.0 - 100.0 fL [facility] MCH 28.6 27.0 - 31.0 pg [facility] MCHC 32.1 32.0 - 36.0 g/dL [facility] RDW 14.8(H) 11.5 - 14.5 % [facility] MPV 10.9 8.4 - 12.0 fL [facility] NRBC 0.00 0.00 /100 WBCs [facility] ABSOLUTE NRBC 0.00 0.00 K/uL [facility] DIFF METHOD Auto [facility] NEUTS 71.7 48.0 - 76.0 % [facility] LYMPHS 16.8(L) 18.0 - 41.0 % [facility] MONOS 7.3 4.0 - 11.0 % [facility] EOS 2.7 0.0 - 5.0 % [facility] BASOS 0.8 0.0 - 1.5 % [facility] Granulocytes, immature (%) 0.7 0.0 - 0.9 % [facility] ABSOLUTE NEUTS 12.17(H) 1.92 - 7.60 K/uL [facility] ABSOLUTE LYMPHS 2.85 0.72 - 4.10 K/uL [facility] ABSOLUTE MONOS 1.24(H) 0.16 - 1.10 K/uL [facility] ABSOLUTE EOS 0.46 0.00 - 0.50 K/uL [facility] ABSOLUTE BASOS 0.13 0.00 - 0.15 K/uL [facility] Granulocytes, immature 0.12(H) 0.00 - 0.09 K/uL [facility] Blood 03/27/2025 5:56 AM EDT 03/27/2025 7:24 AM EDT us Nicole Bragg MD LAB BLOOD ORDERABLES Final Res ult Performing Organization Address City/[facility] Co de Phone Number [address] [address] * (ABNORMAL) Magnesium (03/27/2025 5:56 AM EDT) Only the most recent of2 resultswithin the time period is included. MAGNESIUM 1.3(L) 1.6 - 2.6 mg/dL [facility] 03/27/2025 5:56 AM EDT 03/27/2025 7:24 AM EDT us Nicole Bragg MD LAB BLOOD ORDERABLES Final Res ult Performing Organization Address City/[facility]/ZIP Co de Phone Number [address] [address] * (ABNORMAL) Lipase (03/27/2025 5:56 AM EDT) LIPASE 229(H) 16 - 63 U/L [facility] 03/27/2025 5:56 AM EDT 03/27/2025 7:24 AM EDT Nicole Bragg MD LAB BLOOD ORDERABLES Final Res ult [address] [address] * Amylase (03/27/2025 5:56 AM EDT) AMYLASE 97 28 - 100 U/L [facility] 03/27/2025 5:56 AM EDT 03/27/2025 7:24 AM EDT Nicole Bragg MD LAB BLOOD ORDERABLES Final Res ult Performing Organization Address [facility] Co de Phone Number [address] [address] * (ABNORMAL) CBC (03/24/2025 6:57 AM EDT) Only the most recent of2 resultswithin the time period is included. WBC 17.61(H) 4.00 - 11.00 K/uL [facility] RBC 4.19 4.00 - 5.20 M/uL [facility] HGB 12.2 12.0 - 16.0 g/dL [facility] HCT 38.5 36.0 - 46.0 % [facility] PLT 325 150 - 450 K/uL [facility] MCV 91.9 80.0 - 100.0 fL [facility] MCH 29.1 27.0 - 31.0 pg [facility] MCHC 31.7(L) 32.0 - 36.0 g/dL [facility] RDW 14.9(H) 11.5 - 14.5 % [facility] MPV 10.5 8.4 - 12.0 fL [facility] NRBC 0.00 0.00 /100 WBCs [facility] ABSOLUTE NRBC 0.00 0.00 K/uL [facility] 03/24/2025 6:57 AM EDT 03/24/2025 10:49 AM EDT us Nicole Bragg MD LAB BLOOD ORDERABLES Final Res ult Performing Organization Address [facility] Co de Phone Number [address] [address] * C. DIFFICILE PCR (03/21/2025 6:20 AM EDT) Pathologist [facility] C.DIFFICILE PCR Negative Negative [facility] C.DIFFICILE STRAIN PRESUMPTIVE NEGATIVE PRESUMPTIVE NEGATIVE [facility] Comment:Detection of 027/NAP 1/BI strains of C.difficile is presumptive and is solely for epidemiological purposes and is not intended to guide or monitor treatment of infections. Stool (Stool) 03/21/2025 6:2 0 AM EDT 03/21/2025 12:44 PM EDT us Nicole Bragg MD MICROBIOLOGY - GENERAL ORDERAB LES Final Result Performing Organization Address [facility] de Phone Number [address] [address] * (ABNORMAL) Iron and iron binding capacity (03/21/2025 6:05 AM EDT) IRON 68 30 - 160 ug/dL [facility] IRON BINDING CAPACITY 164(L) 228 - 428 ug/dL [facility] TRANSFERRIN SATURAT. 41 15 - 50 % [facility] Blood 03/21/2025 6:05 AM EDT 03/21/2025 7:53 AM EDT us Nicole Bragg MD LAB BLOOD ORDERABLES Final Res ult Performing Organization Address [facility] de Phone Number [address] [address] * Folate (03/21/2025 6:05 AM EDT) FOLIC ACID 14.5 4.2 - 19.9 ng/mL [facility] Blood 03/21/2025 6:05 AM EDT 03/21/2025 7:53 AM EDT Nicole Bragg MD LAB BLOOD ORDERABLES Final Res ult Performing Organization Address City/[facility]/ZIP Co de Phone Number [address] [address] * (ABNORMAL) Ferritin (03/21/2025 6:05 AM EDT) FERRITIN 384(H) 13 - 150 ug/L [facility] Blood 03/21/2025 6:05 AM EDT 03/21/2025 7:53 AM EDT Nicole Bragg MD LAB BLOOD ORDERABLES Final Res ult Performing Organization Address [facility] Co de Phone Number [address] [address] * ENDOSCOPY, SIGMOID (08/15/2024 9:33 AM EST) 08/15/2024 9:33 AM EST Narrative Transcriptions Kadeem Lehman MD - 08/15/2024 9:[address] [facility] Gastrointestinal Endoscopy Unit Patient Name: Kia Phelps Exam Date: 08/15/2024 9:33 AM Date of : 1960 Admit Type: Outpatient Age: 64 Room: [place] [address] Gender: Female Note Status: Finalized Attending MD: Kadeem Lehman MD, Procedure: Flexible Sigmoidoscopy Indications: High risk colon cancer surveillance: Personal history of adenoma with villous component Providers: Kadeem Lehman MD Referring MD: Nessa Hillman (Referring MD) Medicines: Monitored Anesthesia Care Complications: No immediate complications. Procedure: After obtaining informed consent, the endoscope was passed under direct vision. The Flexible Sigmoid Endoscope was introduced through the anus and advanced to 20 cm from the anal verge. The flexible sigmoidoscopy was accomplished without difficulty. The patient tolerated the procedure well. The quality of the bowel preparation was good. Findings: The perianal and digital rectal examinations were normal. The rectum appeared normal. to 15 cm Blue stitch noted I do not see an anastonosis Impression: - The rectum is normal. - No specimens collected. Recommendation: - Return to my office. Attending Participation: I was personally present throughout the entire procedure. Anesthesia administered sedation. 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 Insurance [employer] PPO MEDICARE REPLACEMENT MEDICARE PART A & B [employer] O MEDICARE REPLACEMENT MEDICARE PART A & B [employer] O MEDICARE REPLACEMENT MEDICARE PART A & B [employer] O MEDICARE REPLACEMENT MEDICARE PART A & B [employer] O MEDICARE REPLACEMENT MEDICARE PART A & B [employer] PPO MEDICARE REPLACEMENT MEDICARE PART A & B Advance Directives For more information, please contact: [phone] (9AM - 5PM [facility], Monday-Monday) Documents on File Type Date Recorded 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 It is not the complete legal health record.[facility]
--- OUTSIDE RECORDS SUMMARY | 2025-06-16 15:46 | XMS_ITS | Encounter Summary ---
Author Organization [facility] Address [address] [place] [address] Phone Care Team Providers Care Land Planner Name Role Phone Nessa Hillman NP Primary Care Provider [phone] Lupillo Sinclair MD Unavailable [phone] Encounter Details Date Type Department Care Team (Late st Contact Info) Description 01/07/2025 Procedure Pass [facility] [address] [place] [phone] Social History Tobacco Use Types Packs/Day Years [...] got money to buy more. Never True 01/08/2025 Within the past 6 months the food we bought just didn't last and we didn't have enough money to get more. Never True Residential Stability Answer Date Recor ded What is your housing situation today? I have johnny sing 01/08/2025 How many times have you move d in the past 12 months? Zero (I did not move) 01/08/2025 Paying for Meds Answer Date Recorded Do you have trouble paying for medicines? No 01/08/2025 Paying Utility Bills Answer Date Record ed Do you have trouble paying your heating or elect ricity bill? No 01/08/2025 Transportation Answer Date Recorded Has the lack of transportati on kept you from medical appointments or from getting medications? No 01/08/2025 Digital Access Answer Date Recorded No 01/08/2025 Yes 01/08/2025 Do you have reliable internet access at home? Ye s 01/08/2025 Do you have a device (e.g., phone, tablet, computer) with a working camera? Yes 01/08/2025 Intimate Partner Violence Answer Date R ecorded Are you denied basic needs s uch as food, clothing, or medical care? No 01/07/2025 In the past 12 months have y ou been in a relationship with a person who hurts, threatens, or tries to control you? No 01/07/2025 Are you denied basic needs s uch as food, clothing, or medical care? No 01/07/2025 In the past 12 months have y ou been in a relationship with a person who hurts, threatens, or tries to control you? No 01/07/2025 Comments No Sex and Gender Information Value Date Recorded Sex Assigned at Female 06/03/2024 2:20 PM EDT Legal Sex Female 9:50 PM EDT Gender Identity Female 06/03/2024 2:20 PM EDT Sexual Orientation Straight 06/03/2024 2: 20 PM EDT documented as of this encounter Functional Status * Calculated C-SSRS Risk Score (Lifetime/Recent) Answer Date of Assessment Author No Risk Indicated 01/08/2025 1:00 PM EDT Shelbi Jimenez, RN * Power Suicide Severity Rating Scale (Screener/Recent Self-Report) Question Answer Date of Assessment Author 1. Wish to be (Past 1 Month) No 025 1:00 PM EDT Shelbi Jimenez, RN 2. Non-Specific Active Suici zhou Thoughts (Past 1 Month) No 01/08/2025 1:00 PM EDT Mayra Jimenez, RN 6. 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 It is not the complete legal health record.[facility]
--- OUTSIDE RECORDS SUMMARY | 2025-06-16 15:46 | XMS_ITS | Encounter Summary ---
Author Organization [facility] Address [address] [place] [address] Phone Care Team Providers Care Virtual Assistant For Advertisers Name Role Phone Nessa Hillman NP Primary Care Provider [phone] Lupillo Sinclair MD Unavailable [phone] Encounter Details Date Type Department Care Team (Late st Contact Info) Description 01/26/2025 Procedure Pass [facility] [place] [facility] [address] [facility], [address] [place] [address] Social History Tobacco Use Types Packs/Day Years [...] 12:00 AM EDT Lulu Zhang RN * [place] Suicide Severity Rating Scale (Screener/Recent Self-Report) Question [...] documented as of this encounter Care Teams Virtual Assistant For Advertisers Relationship Specialty Start Date End Date Nessa Hillman NP [address] [place] [address] PCP - General Nurse Practitioner 06/03/24 Lupillo Sinclair MD [address] [address] Cardiology 12/24/24 documented as of this encounter Additional Source Comments The information contained in this document represents components of the legal health record. It is not the complete legal health record.[facility]
--- OUTSIDE RECORDS SUMMARY | 2025-06-16 15:46 | XMS_ITS | Encounter Summary ---
Author Organization [facility] Address [address] [place] [address] Care Team Providers Care Spinner Operator Name Role Phone Joi Rebollar MD Primary Care Provider [phone] Encounter Details Date Type Department Care Team ([facility] st Contact Info) Description 06/06/2025 Orders Only INPATIENT REHAB [address] [place] [id number] Astrid Marsh PA-C [address] [address] Intra-abdominal abscess (HCC) Social History Tobacco Use Types Packs/Day Years Used Date Smoking Tobacco: Former Cigarettes Smokeless Tobacco: Never Alcohol Use Standard Drinks/Week Comments Never 0 (1 standard drink = 0.6 oz pur e alcohol) [facility] Utilities Answer Date Recorded In the past 12 months has [employer], gas, oil, or water [employer] threatened to shut off services in your home? Patient unable to answer 05/10/2025 AUDIT-C Answer Date Recorded Q1: How often do you have a drink containing alcohol? Never 05/21/2025 Q2: How many drinks containi ng alcohol do you have on a typical day when you are drinking? Patient does not drink Q3: How often do you have si x or more drinks on one occasion? Never 05/21/2025 Overall Financial Resource Strain (CARDIA) Answe r Date Recorded How hard is it for you to pa y for the very basics like food, housing, medical care, and heating? Patient unable to answer 05/10/2025 PHQ-2 Answer Date Recorded PHQ-2 Total Score 0 06/03/2025 Hunger Vital Sign Answer Date Recorded Within the past 12 months, y ou worried that your food would run out before you got the money to buy more. Patient unable to answer 05/10/2025 Within the past 12 months, t he food you bought just didn't last and you didn't have money to get more. Patient unable to answer 05/10/2025 PRAPARE - Transportation Answer Date Re corded In the past 12 months, has l ack of transportation kept you from medical appointments or from getting medications? No 05/05 In the past 12 months, has l ack of transportation kept you from meetings, work, or from getting things needed for daily living? No 05/23/2025 Housing Stability Vital Sign Answer Mo e Recorded In the last 12 months, was t here a time when you were not able to pay the mortgage or rent on time? No 05/10/2025 In the past 12 months, how m any times have you moved where you were living? 0 05/10/2025 At any time in the past 12 m [facility], were you homeless or living in a assisted (including now)? No 05/10/2025 Comments Unknown Sex and Gender Information Value Date Recorded Sex Assigned at Female 05/08/2025 9:25 PM EDT Legal Sex Female 4:33 PM EDT Gender Identity Female 05/08/2025 9:25 PM EDT Sexual Orientation Heterosexual (straight) 05/08 9:25 PM EDT documented as of this encounter Plan of Treatment Not on file documented as of this encounter Visit Diagnoses Diagnosis Intra-abdominal abscess (HCC) Peritoneal abscess documented in this encounter Care Teams Spinner Operator Relationship Specialty Start Date End Date Joi Rebollar MD [address] [place] [id number] PCP - General Internal Medicine 05/08/25 documented as of this encounter
--- OUTSIDE RECORDS SUMMARY | 2025-06-16 15:47 | XMS_ITS | Encounter Summary ---
Author Organization [facility] Address [address] [place] [address] Phone Care Team Providers Care Column Precaster Name Role Phone Nessa Hillman NP Primary Care Provider [phone] Lupillo Sinclair MD Unavailable [phone] Encounter Details Date Type Department Care Team (Late st Contact Info) Description 06/12/[address] - [address], [address] [place] [id number] Social History Tobacco Use Types Packs/Day Years Used Date Smoking Tobacco: Former Cigarettes 0.5 47.7 0 09/04/1976 - 05/05/2024 Smokeless Tobacco: Never Comments:quit smoking may Alcohol Use Standard Drinks/Week Comments Never 0 (1 standard drink = 0.6 oz pur e alcohol) Education Answer Date Recorded Are you interested in more education? Not on aminta e 12/30/2022 Are you concerned about learning? Not on file 12/30/2022 No 12/30/2022 No 12/30/2022 Digital Access Answer Date Recorded No 01/28/2023 No 01/28/2023 Reliable internet access at home? Not on file 01/28/2023 Device with a working camera? Not on file Comments No Sex and Gender Information Value [...] documented as of this encounter Care Teams Column Precaster Relationship Specialty Start Date End Date Nessa Hillman NP [address] [place] [address] PCP - General Nurse Practitioner 06/03/24 Lupillo Sinclair MD [address] [place] [phone] Cardiology 12/24/24 documented as of this encounter Additional Source Comments The information contained in this document represents components of the legal health record. It is not the complete legal health record.[facility]
--- OUTSIDE RECORDS SUMMARY | 2025-06-16 15:47 | XMS_ITS | Clinical Summary ---
Author Organization [facility] Address [address] [place] [address] Care Team Providers [employer] Specialist Name Role Phone Joi Rebollar MD Primary Care Provider Allergies Active Allergy Reactions Criticality Noted Date Comments Amoxicillin-Pot Clavulanate Rash/Dermatitis Low 05/21/2025 Azithromycin Rash/Dermatitis Low 05/21/2025 Clavulanic Acid Hives,Shortness Of Breath,Angioedema High 05/15/2025 Occurred in 2022 Melatonin GI Intolerance/Nausea/Vo miting Low 05/21/2025 Morphine Anaphylaxis High 05/21/2025 Sulfa Antibiotics Rash/Dermatitis Low 05/21/2025 Medications multivitamin with minerals Tab tabletIndications :Nutritional deficiency Take 1 tablet by mouth daily. 025 2024 Active thiamine mononitrate (VITAMIN B-1) 100 MG tabletIndications :Nutritional deficiency Take 1 tablet (100 mg total) by mouth daily. 025 2024 Active fluticasone (FloNASE) 50 mcg/spray nasal sprayIndications: Allergic rhinitis, unspecified seasonality, unspecified trigger 1 spray into each nostril daily. 025 2024 Active Magnesium 400 MG TabIndications:Nu tritional deficiency Take 800 mg by mouth nightly. 025 2024 Active benzonatate (TESSALON) 100 MG capsuleIndication s:Anxiety Take 1 capsule (100 mg total) by mouth 3 (three) times a day as needed for cough. Active acetaminophen (TYLENOL) 325 MG tabletIndications :Intra-abdominal abscess (HCC) Take 2 tablets (650 mg total) by mouth every 4 (four) hours as needed for mild pain, moderate pain, headaches or fever. 2024 Active apixaban (ELIQUIS) 5 MG tabletIndications :Atrial fibrillation, unspecified type (HCC) Take 1 tablet (5 mg total) by mouth 2 times a day. 60 tablet 2024 Active atorvastatin (Lipitor) 20 MG tabletIndications :Stress-induced cardiomyopathy Take 1 tablet (20 mg total) by mouth daily. 30 tablet Active metoPROLOL SUCCINATE (TOPROL-XL) 25 MG 24 hr tabletIndications :Stress-induced cardiomyopathy Take 1 tablet (25 mg total) by mouth daily. 30 tablet 2024 Active calcium carbonate (TUMS) 500 MG chewable tabletIndications :Intra-abdominal abscess (HCC) Chew 1 tablet (500 mg total) 3 (three) times a day as needed for indigestion or heartburn. 2024 Active mirtazapine (REMERON) 15 MG tabletIndications :Anxiety Take 1 tablet (15 mg total) by mouth nightly. 30 tablet 2024 Active PANTOprazole (PROTONIX) 40 MG EC tabletIndications :Nutritional deficiency Take 1 tablet (40 mg total) by mouth daily. 30 tablet 2024 Active folic acid (FOLVITE) 1 MG tabletIndications :Intra-abdominal abscess (HCC) Take 1 tablet (1 mg total) by mouth daily. 30 tablet 2024 Active diclofenac (VOLTAREN) 1 % gelIndications:Pr imary osteoarthritis of both knees Apply 2 g topically 4 (four) times a day as needed (knee pain). Use dosing card to measure dose. Apply to entire affect area. 100 g 2024 Active ondansetron (ZOFRAN-ODT) 4 MG disintegrating tabletIndications :Colostomy complication (HCC) Take 1 tablet (4 mg total) by mouth daily as needed for nausea or vomiting. Place tablet on tongue to dissolve. 20 tablet 2024 Active psyllium (METAMUCIL) 58.12 % Pack packetIndications :Colostomy complication (HCC) Take 1 packet by mouth daily as needed (constipation, loose stools). 2024 Active ramelteon (ROZEREM) 8 MG tabletIndications :Primary insomnia Take 1 tablet (8 mg total) by mouth nightly as needed for sleep. 30 tablet 2024 Active diazepam (VALIUM) 2 MG tabletIndications :Primary insomnia Take 3 tablets (6 mg total) by mouth nightly as needed for anxiety (sleep). Do not start before June 02, 2025. 9 tablet Active COLCHICINE, CARDIOVASCULAR, PO Take 0.6 mg by mouth every 24 hours. 2024 Discontinued Magnesium 400 MG Tab Take 800 mg by mouth nightly. 2024 Discontinued acetaminophen (TYLENOL) 500 MG tablet Take 2 tablets (1,000 mg total) by mouth 3 times daily (every 8 hours) as needed. 2024 Discontinued amiODARONE (PACERONE) 200 MG tablet Take 1 tablet (200 mg total) by mouth daily. 2024 Discontinued(S top Taking at Discharge) apixaban (ELIQUIS) 5 MG tablet Take 1 tablet (5 mg total) by mouth 2 times a day. 2024 Discontinued carisoprodol (SOMA) 350 MG tablet Take 1 tablet (350 mg total) by mouth nightly. 2024 Discontinued(S top Taking at Discharge) fluticasone (FloNASE) 50 mcg/spray nasal spray 1 spray into each nostril daily. 2024 Discontinued atorvastatin (Lipitor) 20 MG tablet Take 1 tablet (20 mg total) by mouth daily. 2024 Discontinued HYDROmorphone (DILAUDID) 2 MG tablet Take 0.5-1 tablets (1-2 mg total) by mouth 3 times daily (every 8 hours) as needed. 025 2024 Discontinued(S top Taking at Discharge) mirtazapine (REMERON) 15 MG tablet Take 1 tablet (15 mg total) by mouth nightly. 024 2024 Discontinued ondansetron (ZOFRAN) 4 MG tablet Take 1 tablet (4 mg total) by mouth 2 times daily (every 12 hours) as needed. 2024 Discontinued(S top Taking at Discharge) cefpodoxime (VANTIN) 200 MG tabletIndications :Septic shock (HCC) Take 1 tablet (200 mg total) by mouth every 12 (twelve) hours around the clock. 2024 Discontinued(S top Taking at Discharge) losartan (COZAAR) 25 MG tabletIndications :Stress-induced cardiomyopathy Take 1 tablet (25 mg total) by mouth daily. 2024 Discontinued(S top Taking at Discharge) melatonin 3 MG Tab tabletIndications :Anxiety Take 2 tablets (6 mg total) by mouth nightly. 025 2024 Discontinued(S top Taking at Discharge) metoPROLOL SUCCINATE (TOPROL-XL) 25 MG 24 hr tabletIndications :Stress-induced cardiomyopathy Take 1 tablet (25 mg total) by mouth daily. 2024 Discontinued metroNIDAZOLE (FLAGYL) 500 MG tabletIndications :Septic shock (HCC) Take 1 tablet (500 mg total) by mouth every 12 (twelve) hours around the clock. Take with meals or food to reduce stomach upset. 2024 Discontinued(S top Taking at Discharge) PANTOprazole (PROTONIX) 40 MG EC tabletIndications :Nutritional deficiency Take 1 tablet (40 mg total) by mouth daily. 025 2024 Discontinued atorvastatin (Lipitor) 20 MG tabletIndications :Stress-induced cardiomyopathy Take 1 tablet (20 mg total) by mouth daily. 025 2024 Discontinued Colchicine, Cardiovascular, 0.5 MG TabIndications:Pe ricarditis, unspecified chronicity, unspecified type Take 0.6 mg by mouth every 24 hours. 2024 Discontinued(S top Taking at Discharge) mirtazapine (REMERON) 15 MG tabletIndications :Anxiety Take 1 tablet (15 mg total) by mouth nightly. 2024 Discontinued acetaminophen (TYLENOL) 500 MG tabletIndications :Intra-abdominal abscess (HCC) Take 2 tablets (1,000 mg total) by mouth 3 times daily (every 8 hours) as needed for mild pain. 2024 Discontinued(S top Taking at Discharge) apixaban (ELIQUIS) 5 MG tabletIndications :Atrial fibrillation, unspecified type (HCC) Take 1 tablet (5 mg total) by mouth 2 times a day. 2024 Discontinued naloxone (NARCAN) 4 mg/0.1 mL Liquid nasal spray deviceIndications :Anxiety [place] contents (4mg) into one nostril once. May repeat every 2 to 3 minutes in alternating nostrils. Call 911 immediately after use. 0.2 mL 2024 Discontinued(S top Taking at Discharge) hydrOXYzine HCl (ATARAX) 25 MG tabletIndications :Anxiety Take 1 tablet (25 mg total) by mouth 4 times daily (every 6 hours) as needed for itching or anxiety. 2024 Discontinued(S top Taking at Discharge) magnesium oxide 400 (240 Mg) MG Tab tabletIndications :Intra-abdominal abscess (HCC) Take 1 tablet (400 mg total) by mouth daily. Take 2 hours apart from other medications; take with food 30 tablet 2024 Discontinued(S top Taking at Discharge) Active Problems Problem Noted Date Diagnosed Date Acute urinary retention 06/02/2025 Assessment & Plan (06/02/2025 12:31 PM EDT): In the setting of acute pancreatitis. Required straight cath overnight given given 263cc in bladder (per patient request as anything more than 250cc is a lot for her). - perez placed for closer output monitoring Acute idiopathic pancreatitis 06/01/2025 Assessment & Plan (06/02/2025 12:31 PM EDT): Patient has had recurrent pancreatitis over the years which was deemed to be idiopathic as no identifiable culprit identified. Triglycerides (05/14/25): 88 CT abd/pelvis (05/14/25): pancreas appeared unremarkable on this scan Rpt CT a/p (06/01): pending radiology read Lipase: 1,172 Tbili/AST/ALT: wnl Alk phos: 172 (205) Afebrile, mild leukocytosis - placed on med hold today - full liquid diet as tolerated - will continue IV Dilaudid 1mg q4h PRN and 2-4mg po Dilaudid q3h PRN - continue IVF rate to 125cc/hr - ok for PRN IV Zofran with close monitor of QTC Assessment & Plan (06/01/2025 2:22 PM EDT): Triglycerides (05/14/25): 88 CT abd/pelvis (05/14/25): pancreas appeared unremarkable on this scan Lipase: 1,172 Tbili/AST/ALT: wnl Alk phos: 172 (205) Afebrile, mild leukocytosis - will get CT a/p w/ contrast to assess pancreas and for any changes in known intra-abd abscesses - NPO for now pre-imaging but will advance to full liquids as tolerated - ordered po 2mg Dilaudid q4h PRN but will increase to 4mg if pain still poorly controlled - increased IVF rate to 125cc/hr Hx of pancreatitis 06/01/2025 Assessment & Plan (06/02/2025 12:31 PM EDT): Patient has had recurrent pancreatitis over the years which was deemed to be idiopathic as no identifiable culprit identified. Triglycerides (05/14/25): 88 CT abd/pelvis (05/14/25): pancreas appeared unremarkable on this scan Rpt CT a/p (06/01): pending radiology read Lipase: 1,172 Tbili/AST/ALT: wnl Alk phos: 172 (205) Afebrile, mild leukocytosis - placed on med hold today - full liquid diet as tolerated - will continue IV Dilaudid 1mg q4h PRN and 2-4mg po Dilaudid q3h PRN - continue IVF rate to 125cc/hr - ok for PRN IV Zofran with close monitor of QTC Assessment & Plan (06/01/2025 2:22 PM EDT): Triglycerides (05/14/25): 88 CT abd/pelvis (05/14/25): pancreas appeared unremarkable on this scan Lipase: 1,172 Tbili/AST/ALT: wnl Alk phos: 172 (205) Afebrile, mild leukocytosis - will get CT a/p w/ contrast to assess pancreas and for any changes in known intra-abd abscesses - NPO for now pre-imaging but will advance to full liquids as tolerated - ordered po 2mg Dilaudid q4h PRN but will increase to 4mg if pain still poorly controlled - increased IVF rate to 125cc/hr Insomnia 05/31/2025 Assessment & Plan (06/02/2025 12:31 PM EDT): - continue Valium 6mg PRN - since Remeron isn't effective for her, adjusted to scheduled Rozerem and dc'd Remeron - Home insomnia regimen: uses Soma for sleeping- which we will resume on discharge as there aren't plans to continue benzos machine ii trimmer (per patient preference); options are limited given prolonged QTC Assessment & Plan (06/01/2025 2:22 PM EDT): - continue Valium 6mg PRN - since Remeron isn't effective for her, adjusted to scheduled Rozerem and dc'd Remeron - Home insomnia regimen: uses Soma for sleeping- which we will resume on discharge as there aren't plans to continue benzos machine ii trimmer (per patient preference); options are limited given prolonged QTC Assessment & Plan (05/31/2025 4:47 PM EDT): - continue Valium 6mg PRN - continue Remeron 15mg nightly and PRN Rozerem Diverticulosis 05/31/2025 Assessment & Plan (06/02/2025 12:31 PM EDT): CT abd/pelvis ( 05/14/2025): Loculated 2.4 cm collection at the neck of the right parastomal hernia, suspicious for abscess. Additional enlarging collection within the mid abdominal soft tissues demonstrates an associated cutaneous drainage tract. Similar moderate left and small right loculated pleural effusions with associated compressive atelectasis. Nodular hepatic contour and diffuse hypoattenuation may suggest cirrhosis. Unchanged position of the percutaneous cholecystostomy tube S/p abx course with Flagyl and Vantin - ileostomy with appropriate output - monitor I/Os; flush w/ 10cc three times daily - PRN zofran - MV/thiamine/folic acid - PT/OT - PM&R following Assessment & Plan (06/01/2025 2:06 PM EDT): CT abd/pelvis ( 05/14/2025): Loculated 2.4 cm collection at the neck of the right parastomal hernia, suspicious for abscess. Additional enlarging collection within the mid abdominal soft tissues demonstrates an associated cutaneous drainage tract. Similar moderate left and small right loculated pleural effusions with associated compressive atelectasis. Nodular hepatic contour and diffuse hypoattenuation may suggest cirrhosis. Unchanged position of the percutaneous cholecystostomy tube S/p abx course with Flagyl and Vantin - ileostomy with appropriate output - monitor I/Os; flush w/ 10cc three times daily - PRN zofran - MV/thiamine/folic acid - PT/OT - PM&R following Assessment & Plan (05/31/2025 4:47 PM EDT): CT abd/pelvis ( 05/14/2025): Loculated 2.4 cm collection at the neck of the right parastomal hernia, suspicious for abscess. Additional enlarging collection within the mid abdominal soft tissues demonstrates an associated cutaneous drainage tract. Similar moderate left and small right loculated pleural effusions with associated compressive atelectasis. Nodular hepatic contour and diffuse hypoattenuation may suggest cirrhosis. 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 Assessment & Plan (06/02/2025 12:31 PM EDT): - continue contact precautions Assessment & Plan (06/01/2025 2:06 PM EDT): - continue contact precautions Assessment & Plan (05/31/2025 4:47 PM EDT): - continue contact precautions Assessment & Plan (05/30/2025 4:10 PM EDT): Follow-up precautions Assessment & Plan (05/29/2025 10:12 AM EDT): Follow-up precautions Assessment & Plan (05/28/2025 11:42 AM EDT): Follow-up precautions Assessment & Plan (05/27/2025 8:45 AM EDT): - follow precautions Moderate mitral regurgitation by prior echocardi ogram 05/26/2025 Assessment & Plan (06/02/2025 12:31 PM EDT): - continue Eliquis 5mg BID - continue metoprolol 12.5mg BID - continue atorvastatin 20mg daily - holding losartan 25mg daily given soft Bps (suspected to due GI losses) Assessment & Plan (06/01/2025 2:06 PM EDT): - continue Eliquis 5mg BID - continue metoprolol 12.5mg BID - continue atorvastatin 20mg daily - holding losartan 25mg daily given soft Bps (suspected to due GI losses) Assessment & Plan (05/31/2025 4:47 PM EDT): - continue Eliquis 5mg BID - continue metoprolol 12.5mg BID - continue atorvastatin 20mg daily - holding losartan 25mg daily given soft Bps (suspected to due GI losses) Assessment & Plan (05/30/2025 4:10 PM EDT): CHADS2 score is 2 Last echocardiogram without significant change, normal right and left ventricular size and function, ejection fraction is 58% Due to soft BP and dehydration, patient has been receiving IV fluids intermittently Orthostatic hypotension seem to be multifactorial neurogenic in nature however in addition to supine hypertension thought to be from autonomic dysfunction as well as exacerbated by polypharmacy Currently, will continue Eliquis 5 mg twice daily Has been draining HR, which is better controlled today, in low 100s Continue metoprolol to 12.5 mg twice daily (increased from a daily dose yesterday) Continue to hold home Aldactone, amiodarone and Farxiga for soft BP Continue lower extremity BRANDYN stockings slow movement upon awakening sitting for few seconds and then standing Would recommend elevate head of the bed = or < 30 degree during sleep to avoid supine hypertension Recommend keep K >or =4.0 and Mg >or=2.0 Strict I's and O's, daily weight. She should follow-up with acute care nurse practitioner as outpatient, to restart Aldactone, amiodarone and Farxiga Assessment & Plan (05/29/2025 1:04 PM EDT): CHADS2 score is 2 Last echocardiogram without significant change, normal right and left ventricular size and function, ejection fraction is 58% Due to soft BP and dehydration, patient has been receiving IV fluids intermittently Orthostatic hypotension seem to be multifactorial neurogenic in nature however in addition to supine hypertension thought to be from autonomic dysfunction as well as exacerbated by polypharmacy Currently, will continue Eliquis 5 mg twice daily Heart rate is elevated while patient is in therapy, increased metoprolol to 12.5 mg twice daily Continue to hold home Aldactone, amiodarone and Farxiga for soft BP Continue lower extremity BRANDYN stockings slow movement upon awakening sitting for few seconds and then standing Would recommend elevate head of the bed = or < 30 degree during sleep to avoid supine hypertension Recommend keep K >or =4.0 and Mg >or=2.0 Strict I's and O's, daily weight. She should follow-up with acute care nurse practitioner as outpatient, to restart Aldactone, amiodarone and Farxiga Assessment & Plan (05/28/2025 11:42 AM EDT): CHADS2 score is 2 Last echocardiogram without significant change, normal right and left ventricular size and function, ejection fraction is 58% patient has been receiving IV fluids due to dehydration Will follow-up with acute care nurse practitioner as outpatient, to restart Aldactone, amiodarone and Farxiga, anticoagulation for A-fib Currently, will continue Eliquis 5 mg twice daily Patient was noted to have orthostatic hypotension, holding metoprolol and losartan. Orthostatic hypotension seem to be multifactorial neurogenic in nature however in addition to supine hypertension thought to be from autonomic dysfunction as well as exacerbated by polypharmacy Continue lower extremity BRANDYN stockings slow movement upon awakening sitting for few seconds and then standing Would recommend elevate head of the bed = or < 30 degree during sleep to avoid supine hypertension Recommend keep K >or =4.0 and Mg >or=2.0 Strict I's and O's, daily weight. Assessment & Plan (05/27/2025 8:45 AM EDT): BP 94/66-110/76 HR 102-112 Echo 05/14: EF58% IVF bolus: 05/22, 05/24, 05/25, 05/26 - Losartan 25 mg on hold due to orthostatic hypotension -Continue metoprolol succinate 12.5 mg for rate control, previously was on 25 mg -Continue Eliquis 5 mg twice daily -Continue atorvastatin 20 mg daily - outpatient acute care nurse practitioner will need to address: AC for afib, re-starting amiodarone, restarting farxiga and spironolactone - yesterday received IVF for tachycardia and decreased po intake Assessment & Plan (05/26/2025 8:39 AM EDT): Echo 05/14: EF58% IVF bolus: 05/22, 05/24, 05/25 - Losartan 25 mg on hold due to orthostatic hypotension -Continue metoprolol succinate 12.5 mg for rate control, previously was on 25 mg -Continue Eliquis 5 mg twice daily -Continue atorvastatin 20 mg daily - outpatient acute care nurse practitioner will need to address: AC for afib, re-starting amiodarone, restarting farxiga and spironolactone Orthostatic hypotension 05/26/2025 Assessment & Plan (06/02/2025 12:31 PM EDT): - continue Eliquis 5mg BID - continue metoprolol 12.5mg BID - continue atorvastatin 20mg daily - holding losartan 25mg daily given soft Bps (suspected to due GI losses) Assessment & Plan (06/01/2025 2:06 PM EDT): - continue Eliquis 5mg BID - continue metoprolol 12.5mg BID - continue atorvastatin 20mg daily - holding losartan 25mg daily given soft Bps (suspected to due GI losses) Assessment & Plan (05/31/2025 4:47 PM EDT): - continue Eliquis 5mg BID - continue metoprolol 12.5mg BID - continue atorvastatin 20mg daily - holding losartan 25mg daily given soft Bps (suspected to due GI losses) Assessment & Plan (05/30/2025 4:10 PM EDT): CHADS2 score is 2 Last echocardiogram without significant change, normal right and left ventricular size and function, ejection fraction is 58% Due to soft BP and dehydration, patient has been receiving IV fluids intermittently Orthostatic hypotension seem to be multifactorial neurogenic in nature however in addition to supine hypertension thought to be from autonomic dysfunction as well as exacerbated by polypharmacy Currently, will continue Eliquis 5 mg twice daily Has been draining HR, which is better controlled today, in low 100s Continue metoprolol to 12.5 mg twice daily (increased from a daily dose yesterday) Continue to hold home Aldactone, amiodarone and Farxiga for soft BP Continue lower extremity BRANDYN stockings slow movement upon awakening sitting for few seconds and then standing Would recommend elevate head of the bed = or < 30 degree during sleep to avoid supine hypertension Recommend keep K >or =4.0 and Mg >or=2.0 Strict I's and O's, daily weight. She should follow-up with acute care nurse practitioner as outpatient, to restart Aldactone, amiodarone and Farxiga Assessment & Plan (05/29/2025 1:04 PM EDT): CHADS2 score is 2 Last echocardiogram without significant change, normal right and left ventricular size and function, ejection fraction is 58% Due to soft BP and dehydration, patient has been receiving IV fluids intermittently Orthostatic hypotension seem to be multifactorial neurogenic in nature however in addition to supine hypertension thought to be from autonomic dysfunction as well as exacerbated by polypharmacy Currently, will continue Eliquis 5 mg twice daily Heart rate is elevated while patient is in therapy, increased metoprolol to 12.5 mg twice daily Continue to hold home Aldactone, amiodarone and Farxiga for soft BP Continue lower extremity BRANDYN stockings slow movement upon awakening sitting for few seconds and then standing Would recommend elevate head of the bed = or < 30 degree during sleep to avoid supine hypertension Recommend keep K >or =4.0 and Mg >or=2.0 Strict I's and O's, daily weight. She should follow-up with acute care nurse practitioner as outpatient, to restart Aldactone, amiodarone and Farxiga Assessment & Plan (05/28/2025 11:42 AM EDT): CHADS2 score is 2 Last echocardiogram without significant change, normal right and left ventricular size and function, ejection fraction is 58% patient has been receiving IV fluids due to dehydration Will follow-up with acute care nurse practitioner as outpatient, to restart Aldactone, amiodarone and Farxiga, anticoagulation for A-fib Currently, will continue Eliquis 5 mg twice daily Patient was noted to have orthostatic hypotension, holding metoprolol and losartan. Orthostatic hypotension seem to be multifactorial neurogenic in nature however in addition to supine hypertension thought to be from autonomic dysfunction as well as exacerbated by polypharmacy Continue lower extremity BRANDYN stockings slow movement upon awakening sitting for few seconds and then standing Would recommend elevate head of the bed = or < 30 degree during sleep to avoid supine hypertension Recommend keep K >or =4.0 and Mg >or=2.0 Strict I's and O's, daily weight. Assessment & Plan (05/27/2025 8:45 AM EDT): BP 94/66-110/76 HR 102-112 Echo 05/14: EF58% IVF bolus: 05/22, 05/24, 05/25, 05/26 - Losartan 25 mg on hold due to orthostatic hypotension -Continue metoprolol succinate 12.5 mg for rate control, previously was on 25 mg -Continue Eliquis 5 mg twice daily -Continue atorvastatin 20 mg daily - outpatient acute care nurse practitioner will need to address: AC for afib, re-starting amiodarone, restarting farxiga and spironolactone - yesterday received IVF for tachycardia and decreased po intake Assessment & Plan (05/26/2025 8:39 AM EDT): Echo 05/14: EF58% IVF bolus: 05/22, 05/24, 05/25 - Losartan 25 mg on hold due to orthostatic hypotension -Continue metoprolol succinate 12.5 mg for rate control, previously was on 25 mg -Continue Eliquis 5 mg twice daily -Continue atorvastatin 20 mg daily - outpatient acute care nurse practitioner will need to address: AC for afib, re-starting amiodarone, restarting farxiga and spironolactone MARKIE (acute kidney injury), resolved 05/26/2025 Assessment & Plan (06/02/2025 12:31 PM EDT): MARKIE suspected pre-renal given GI losses due to high volume ileostomy. No changes in volume quantity reported. Electrolyte abnormalities due to GI losses. BUN/Cr: 20/0.65 Na: 134 M.4 - repleted IV Mg today - continue Mg oxide to 800mg BID given ongoing losses - on LF IVF - repeat BMP and Mg in AM - avoid nephrotoxic agents Assessment & Plan (06/01/2025 2:22 PM EDT): MARKIE suspected pre-renal given GI losses due to high volume ileostomy. No changes in volume quantity reported. Electrolyte abnormalities due to GI losses. BUN/Cr: 1.03 Na: 134 M.1 - increased Mg oxide to 800mg BID given ongoing losses - on LF IVF - repeat BMP and Mg in AM - avoid nephrotoxic agents Assessment & Plan (05/31/2025 4:47 PM EDT): MARKIE suspected pre-renal given GI losses due to high volume ileostomy. No changes in volume quantity reported. Electrolyte abnormalities due to GI losses. BUN/Cr: 1.5 Na: 133 M.0 - repleted Mg - increased Mg oxide to 800mg BID - will repeat Mg this evening - ordered LR bolus and gentle IVF - repeat BMP and Mg in AM - avoid nephrotoxic agents Assessment & Plan (05/30/2025 4:10 PM EDT): Creatinine normalized, sodium improved, last 134 on 05/27, can trend labs weekly Likely due to decreased p.o. intake Encourage p.o. hydration, have been supplemented with IV fluids. Avoid nephrotoxic medications and IV contrast if possible and NSAIDs Assessment & Plan (05/29/2025 10:12 AM EDT): Creatinine normalized, sodium improved, last 134 on 05/27, can trend labs weekly Likely due to decreased p.o. intake Encourage p.o. hydration, have been supplemented with IV fluids. Avoid nephrotoxic medications and IV contrast if possible and NSAIDs Assessment & Plan (05/28/2025 11:42 AM EDT): Creatinine normal, sodium improved, last 134. Likely due to decreased p.o. intake Encourage p.o. hydration, have been supplemented with IV fluids. avoid nephrotoxic medications and IV contrast if possible and NSAID Assessment & Plan (05/27/2025 8:45 AM EDT): Creatine 0.98 >>1.8>>1.05 >>0.96>>0.81 Na 134 - continue to trend labs - encourage oral hydration - I&Os - was likely due to fluid depletion from drain output and poor oral hydration/oral intake (Reviewed, no change) Assessment & Plan (05/26/2025 8:39 AM EDT): Creatine 0.98 >>1.8>>1.05 >>0.96 Na 134 (131) - continue to trend labs - encourage oral hydration - I&Os - was likely due to fluid depletion from drain output and poor oral hydration/oral intake Hyponatremia 05/26/2025 Assessment & Plan (06/02/2025 12:31 PM EDT): MARKIE suspected pre-renal given GI losses due to high volume ileostomy. No changes in volume quantity reported. Electrolyte abnormalities due to GI losses. BUN/Cr: 20/0.65 Na: 134 M.4 - repleted IV Mg today - continue Mg oxide to 800mg BID given ongoing losses - on LF IVF - repeat BMP and Mg in AM - avoid nephrotoxic agents Assessment & Plan (06/01/2025 2:22 PM EDT): MARKIE suspected pre-renal given GI losses due to high volume ileostomy. No changes in volume quantity reported. Electrolyte abnormalities due to GI losses. BUN/Cr: 29/1.03 Na: 134 M.1 - increased Mg oxide to 800mg BID given ongoing losses - on LF IVF - repeat BMP and Mg in AM - avoid nephrotoxic agents Assessment & Plan (05/31/2025 4:47 PM EDT): MARKIE suspected pre-renal given GI losses due to high volume ileostomy. No changes in volume quantity reported. Electrolyte abnormalities due to GI losses. BUN/Cr: 29/1.5 Na: 133 M.0 - repleted Mg - increased Mg oxide to 800mg BID - will repeat Mg this evening - ordered LR bolus and gentle IVF - repeat BMP and Mg in AM - avoid nephrotoxic agents Assessment & Plan (05/30/2025 4:10 PM EDT): Creatinine normalized, sodium improved, last 134 on 05/27, can trend labs weekly Likely due to decreased p.o. intake Encourage p.o. hydration, have been supplemented with IV fluids. Avoid nephrotoxic medications and IV contrast if possible and NSAIDs Assessment & Plan (05/29/2025 10:12 AM EDT): Creatinine normalized, sodium improved, last 134 on 05/27, can trend labs weekly Likely due to decreased p.o. intake Encourage p.o. hydration, have been supplemented with IV fluids. Avoid nephrotoxic medications and IV contrast if possible and NSAIDs Assessment & Plan (05/28/2025 11:42 AM EDT): Creatinine normal, sodium improved, last 134. Likely due to decreased p.o. intake Encourage p.o. hydration, have been supplemented with IV fluids. avoid nephrotoxic medications and IV contrast if possible and NSAID Assessment & Plan (05/27/2025 8:45 AM EDT): Creatine 0.98 >>1.8>>1.05 >>0.96>>0.81 Na 134 - continue to trend labs - encourage oral hydration - I&Os - was likely due to fluid depletion from drain output and poor oral hydration/oral intake (Reviewed, no change) Assessment & Plan (05/26/2025 8:39 AM EDT): Creatine 0.98 >>1.8>>1.05 >>0.96 Na 134 (131) - continue to trend labs - encourage oral hydration - I&Os - was likely due to fluid depletion from drain output and poor oral hydration/oral intake Hypomagnesemia 05/22/2025 Assessment & Plan (06/02/2025 12:31 PM EDT): MARKIE suspected pre-renal given GI losses due to high volume ileostomy. No changes in volume quantity reported. Electrolyte abnormalities due to GI losses. BUN/Cr: 20/0.65 Na: 134 M.4 - repleted IV Mg today - continue Mg oxide to 800mg BID given ongoing losses - on LF IVF - repeat BMP and Mg in AM - avoid nephrotoxic agents Assessment & Plan (06/01/2025 2:22 PM EDT): MARKIE suspected pre-renal given GI losses due to high volume ileostomy. No changes in volume quantity reported. Electrolyte abnormalities due to GI losses. BUN/Cr: 29/1.03 Na: 134 M.1 - increased Mg oxide to 800mg BID given ongoing losses - on LF IVF - repeat BMP and Mg in AM - avoid nephrotoxic agents Assessment & Plan (05/31/2025 4:47 PM EDT): MARKIE suspected pre-renal given GI losses due to high volume ileostomy. No changes in volume quantity reported. Electrolyte abnormalities due to GI losses. BUN/Cr: 29/1.5 Na: 133 M.0 - repleted Mg - increased Mg oxide to 800mg BID - will repeat Mg this evening - ordered LR bolus and gentle IVF - repeat BMP and Mg in AM - avoid nephrotoxic agents Assessment & Plan (05/30/2025 4:10 PM EDT): Last EKG 05/30 with stable QTc Continue Zofran for nausea Will continue to monitor QTc prolongation with daily EKGs. For folate deficiency, continue supplementation Assessment & Plan (05/29/2025 10:12 AM EDT): Magnesium is 1.8 on 05/27, repleted Last EKG 05/28 with stable QTc Patient is requesting IV Zofran for better control of nausea, she has no vomiting, discussed with the patient to consider oral Zofran for now, and adding other antiemetic medications if needed, agreed Will continue to monitor magnesium level and QTc prolongation with daily EKGs. For folate deficiency, continue supplementation Assessment & Plan (05/28/2025 11:53 AM EDT): Magnesium is 1.8 on 05/27, repleted Last EKG 05/27 with QTc 480 Patient is requesting IV Zofran, as he reported that disintegrating tablets are not helping Will continue to monitor magnesium level and QTc prolongation with daily EKGs. For full deficiency, continue supplementation Assessment & Plan (05/27/2025 12:55 PM EDT): Mg 1.8 (1.4) EKG 05/21/25 Qtc 519, 05/25: Qtc 478 05/26 480 05/27 480 - continue to monitor Qtc and avoid prolonging medications, check EKG daily since requesting IV zofran - continue Mg 400mg daily, received 2g IV Mg yesterday Assessment & Plan (05/26/2025 8:39 AM EDT): Mg 1.4 (1.7) EKG 05/21/25 Qtc 519, 05/25: Qtc 478 - continue to monitor Qtc and avoid prolonging medications - has been on Mg 400mg daily - per protocol giving two more doses of 800mg q12h, due to prior Gi surgery may require IV if it does not improve Assessment & Plan (05/25/2025 10:54 AM EDT): 05/22/2025 Magnesium- 1.3>>2.2>>2.1 EKG (05/21/2025 ) QTc 519, 05/25-QTc 478 Continue to monitor QTc and avoid medication that will prolongate qtc Continue magnesium supplements to keep mag greater than/equal to 2.0 Assessment & Plan (05/24/2025 4:33 PM EDT): 05/22/2025 Magnesium- 1.3>>2.2>>2.1 EKG (05/21/2025 ) QTc 519 Continue to monitor QTc and avoid medication that will prolongate qtc Continue magnesium supplements to keep mag greater than/equal to 2.0 Assessment & Plan (05/23/2025 2:50 PM EDT): 05/22/2025 Magnesium- 1.3>>2.2>>2.1 EKG (05/21/2025 ) QTc 519, order for repeat-pending Continue to monitor QTc and avoid medication that will prolongate qtc Continue magnesium supplements to keep mag greater than/equal to 2.0 Assessment & Plan (05/22/2025 6:58 PM EDT): 05/22/2025 Magnesium- 1.3 - EKG (05/21/2025 ) QTc 519, will obtain repeat EKG after magnesium supplementation -please continue to avoid Qtc prolongation agents - magnesium replete today Debility 05/21/2025 Assessment & Plan (06/02/2025 12:31 PM EDT): CT abd/pelvis ( 05/14/2025): Loculated 2.4 cm collection at the neck of the right parastomal hernia, suspicious for abscess. Additional enlarging collection within the mid abdominal soft tissues demonstrates an associated cutaneous drainage tract. Similar moderate left and small right loculated pleural effusions with associated compressive atelectasis. Nodular hepatic contour and diffuse hypoattenuation may suggest cirrhosis. Unchanged position of the percutaneous cholecystostomy tube S/p abx course with Flagyl and Vantin - ileostomy with appropriate output - monitor I/Os; flush w/ 10cc three times daily - PRN zofran - MV/thiamine/folic acid - PT/OT - PM&R following Assessment & Plan (06/01/2025 2:06 PM EDT): CT abd/pelvis ( 05/14/2025): Loculated 2.4 cm collection at the neck of the right parastomal hernia, suspicious for abscess. Additional enlarging collection within the mid abdominal soft tissues demonstrates an associated cutaneous drainage tract. Similar moderate left and small right loculated pleural effusions with associated compressive atelectasis. Nodular hepatic contour and diffuse hypoattenuation may suggest cirrhosis. Unchanged position of the percutaneous cholecystostomy tube S/p abx course with Flagyl and Vantin - ileostomy with appropriate output - monitor I/Os; flush w/ 10cc three times daily - PRN zofran - MV/thiamine/folic acid - PT/OT - PM&R following Assessment & Plan (05/31/2025 4:47 PM EDT): CT abd/pelvis ( 05/14/2025): Loculated 2.4 cm collection at the neck of the right parastomal hernia, suspicious for abscess. Additional enlarging collection within the mid abdominal soft tissues demonstrates an associated cutaneous drainage tract. Similar moderate left and small right loculated pleural effusions with associated compressive atelectasis. Nodular hepatic contour and diffuse hypoattenuation may suggest cirrhosis. Unchanged position of the percutaneous cholecystostomy tube S/p abx course with Flagyl and Vantin - ileostomy with appropriate output - monitor I/Os; flush w/ 10cc three times daily - PRN zofran - MV/thiamine/folic acid - PT/OT - PM&R following Assessment & Plan (05/30/2025 4:10 PM EDT): CT abd/pelvis ( 05/14/2025): Loculated 2.4 cm collection at the neck of the right parastomal hernia, suspicious for abscess. Additional enlarging collection within the mid abdominal soft tissues demonstrates an associated cutaneous drainage tract. Similar moderate left and small right loculated pleural effusions with associated compressive atelectasis. Nodular hepatic contour and diffuse hypoattenuation may suggest cirrhosis. Unchanged position of the percutaneous cholecystostomy tube Recent surgical evaluation and IR recommendations, no plans for abscess drainage. Completed cefpodoxime and Flagyl Continue PCT care as ordered, monitor output Continue flushing with 10 cc of normal saline 3 times a day Patient reported that he had no sleep last night, increased Valium to 6 mg additional 4 mg once as needed total of 10 mg dose Appreciate wound care Continue monitoring for pain, currently on Tylenol as needed Continue management of ostomy as ordered Continue monitoring bowel movements, adjust regimen as needed Continue PM&R Has an appointment with general surgery Dr. Walton on 06/10 [facility] Assessment & Plan (05/29/2025 10:12 AM EDT): Images from the original note were not included. CT abd/pelvis ( 05/14/2025): Loculated 2.4 cm collection at the neck of the right parastomal hernia, suspicious for abscess. Additional enlarging collection within the mid abdominal soft tissues demonstrates an associated cutaneous drainage tract. Similar moderate left and small right loculated pleural effusions with associated compressive atelectasis. Nodular hepatic contour and diffuse hypoattenuation may suggest cirrhosis. Unchanged position of the percutaneous cholecystostomy tube Recent surgical evaluation and IR recommendations, no plans for abscess drainage. Completed cefpodoxime and Flagyl today (05/21 - 05/29) Continue PCT care as ordered, monitor output Continue flushing with 10 cc of normal saline 3 times a day Appreciate wound care Continue monitoring for pain, currently on Tylenol as needed Continue management of ostomy as ordered Continue monitoring bowel movements, adjust regimen as needed Continue PM&R Has an appointment with general surgery Dr. Walton on 06/10 [facility] Assessment & Plan (05/28/2025 11:53 AM EDT): CT abd/pelvis ( 05/14/2025) * Loculated 2.4 cm collection at the neck of the right parastomal hernia, suspicious for abscess. Additional enlarging collection within the mid abdominal soft tissues demonstrates an associated cutaneous drainage tract. * Similar moderate left and small right loculated pleural effusions with associated compressive atelectasis. * Nodular hepatic contour and diffuse hypoattenuation may suggest cirrhosis. * Unchanged position of the percutaneous cholecystostomy tube Recent surgical evaluation and IR recommendations, no plans for abscess drainage. Continue antibiotics cefpodoxime and Flagyl until 05/29/2025 Continue PCT care as ordered, monitor output Appreciate wound care Continue monitoring for pain, currently on Tylenol as needed Continue management of ostomy as ordered Continue monitoring bowel movements, adjust regimen as needed Continue PM&R Has an appointment with general surgery Dr. Walton on 06/10 [facility] Assessment & Plan (05/27/2025 8:45 AM EDT): - ongoing nausea- says she tolerates IV zofran better than SL (will need to follow daily EKG to make sure Qtc not over 500 - sleeping being helped with mirtazapine and prn ativan 0.5mg oral nightly prn - supportive care - continue therapy as tolerated - PT/OT/PM&R Assessment & Plan (05/26/2025 8:39 AM EDT): - ongoing nausea- continue zofran 4mg sublingual daily prn - sleeping being helped with mirtazapine and prn ativan 0.5mg oral nightly prn - supportive care - continue therapy as tolerated - PT/OT/PM&R Assessment & Plan (05/25/2025 10:54 AM EDT): Patient was seen lying in bed this morning and she verbalized being fatigued and she did not get much rest last night. Patient was seen earlier today in her room during therapy session awake and alert. She reported having a good night rest with the mirtazapine and the as needed Ativan. She did reports mild nausea she states it is ongoing Continue supportive care Continue therapy as tolerated Assessment & Plan (05/24/2025 1:59 PM EDT): Patient was seen lying in bed this morning and she verbalized being fatigued and she did not get much rest last night. Will add mirtazapine 7.5 mg nightly (patient takes at home), as needed 0.5 mg lorazepam as needed nightly to help with sleep Continue therapy and supportive care Assessment & Plan (05/23/2025 8:57 AM EDT): Patient seen in bed this morning, she verbalizes being fatigue and she did not get much rest at night. Patient seen this morning lying in bed in no acute distress she reports her nausea has improved. Continue therapy as tolerated-patient reports she is looking forward towards her therapy sessions Continue supportive care Assessment & Plan (05/22/2025 5:12 PM EDT): Patient seen in bed this morning, she verbalizes being fatigue and she did not get much rest at night -continue PT/OT therapies - continue supportive care QT prolongation 05/21/2025 Assessment & Plan (06/02/2025 12:31 PM EDT): QTC: 472 - will monitor closely as patient getting PRN Zofran which she needs given intermittent nausea - repeat EKG in AM Assessment & Plan (06/01/2025 2:22 PM EDT): QTC: 448 - will monitor closely as patient getting PRN Zofran which she needs given intermittent nausea (chronic) - repeat EKG in AM Assessment & Plan (05/31/2025 4:47 PM EDT): Initial EKG at 639 deemed inaccurate as repeat was 448. - will monitor closely as patient getting PRN Zofran which she needs given intermittent nausea (chronic) Assessment & Plan (05/30/2025 4:10 PM EDT): Last EKG 05/30 with stable QTc Continue Zofran for nausea Will continue to monitor QTc prolongation with daily EKGs. For folate deficiency, continue supplementation Assessment & Plan (05/29/2025 10:12 AM EDT): Magnesium is 1.8 on 05/27, repleted Last EKG 05/28 with stable QTc Patient is requesting IV Zofran for better control of nausea, she has no vomiting, discussed with the patient to consider oral Zofran for now, and adding other antiemetic medications if needed, agreed Will continue to monitor magnesium level and QTc prolongation with daily EKGs. For folate deficiency, continue supplementation Assessment & Plan (05/28/2025 11:53 AM EDT): Magnesium is 1.8 on 05/27, repleted Last EKG 05/27 with QTc 480 Patient is requesting IV Zofran, as he reported that disintegrating tablets are not helping Will continue to monitor magnesium level and QTc prolongation with daily EKGs. For full deficiency, continue supplementation Assessment & Plan (05/27/2025 12:55 PM EDT): Mg 1.8 (1.4) EKG 05/21/25 Qtc 519, 05/25: Qtc 478 05/26 480 05/27 480 - continue to monitor Qtc and avoid prolonging medications, check EKG daily since requesting IV zofran - continue Mg 400mg daily, received 2g IV Mg yesterday Assessment & Plan (05/26/2025 8:39 AM EDT): Mg 1.4 (1.7) EKG 05/21/25 Qtc 519, 05/25: Qtc 478 - continue to monitor Qtc and avoid prolonging medications - has been on Mg 400mg daily - per protocol giving two more doses of 800mg q12h, due to prior Gi surgery may require IV if it does not improve Assessment & Plan (05/25/2025 10:54 AM EDT): 05/22/2025 Magnesium- 1.3>>2.2>>2.1 EKG (05/21/2025 ) QTc 519, 05/25-QTc 478 Continue to monitor QTc and avoid medication that will prolongate qtc Continue magnesium supplements to keep mag greater than/equal to 2.0 Assessment & Plan (05/24/2025 4:33 PM EDT): 05/22/2025 Magnesium- 1.3>>2.2>>2.1 EKG (05/21/2025 ) QTc 519 Continue to monitor QTc and avoid medication that will prolongate qtc Continue magnesium supplements to keep mag greater than/equal to 2.0 Assessment & Plan (05/23/2025 2:50 PM EDT): 05/22/2025 Magnesium- 1.3>>2.2>>2.1 EKG (05/21/2025 ) QTc 519, order for repeat-pending Continue to monitor QTc and avoid medication that will prolongate qtc Continue magnesium supplements to keep mag greater than/equal to 2.0 Assessment & Plan (05/22/2025 6:59 PM EDT): 05/22/2025 Magnesium- 1.3 - EKG (05/21/2025 ) QTc 519, will obtain repeat EKG after magnesium supplementation -please continue to avoid Qtc prolongation agents - magnesium replete today Bilateral primary osteoarthritis of knee 025 Assessment & Plan (06/02/2025 12:31 PM EDT): - continue diclofenac gel PRN and APAP PRN Assessment & Plan (06/01/2025 2:06 PM EDT): - continue diclofenac gel PRN and APAP PRN Assessment & Plan (05/31/2025 4:47 PM EDT): - continue diclofenac gel PRN and APAP PRN Assessment & Plan (05/30/2025 4:10 PM EDT): Bilateral knee x-rays performed on 05/28/2025, pending dictation showed bilateral degenerative changes, findings are predominantly in the lateral compartment with progression seen in the right knee. Plan bilateral knee injections today. Assessment & Plan (05/29/2025 10:12 AM EDT): Bilateral knee x-rays performed on 05/28/2025, pending dictation Meanwhile, continue Voltaren gel for pain, patient is participating in therapy with significant improvement Tentative plan for bilateral knees steroid injection on Monday Assessment & Plan (05/28/2025 11:42 AM EDT): Will continue with Voltaren gel for pain, patient is participating in therapy with significant improvement Tentative plan for bilateral knees steroid injection on Monday Assessment & Plan (05/27/2025 8:45 AM EDT): - monitor for worsening symptoms - volataren gel - therapy as tolerated - is requesting steroid knee injections prior to discharge to help with mobility which I relayed to PM&R -- tentative plan to do so on Monday Assessment & Plan (05/26/2025 8:39 AM EDT): - monitor for worsening symptoms - volataren gel - therapy as tolerated Assessment & Plan (05/25/2025 7:27 AM EDT): Monitor for worsening symptoms Continue Voltaren gel Continue with therapy as tolerated Assessment & Plan (05/24/2025 10:28 AM EDT): Monitor for worsening symptoms Continue Voltaren gel Continue with therapy as tolerated Assessment & Plan (05/23/2025 8:57 AM EDT): Monitor for worsening symptoms Continue Voltaren gel Continue with therapy as tolerated Assessment & Plan (05/22/2025 5:12 PM EDT): Patient is asymptomatic - continue voltaren gel to bilateral lower extremites - continue PT/OT Paroxysmal A-fib 05/21/2025 Assessment & Plan (06/02/2025 12:31 PM EDT): - continue Eliquis 5mg BID - continue metoprolol 12.5mg BID - continue atorvastatin 20mg daily - holding losartan 25mg daily given soft Bps (suspected to due GI losses) Assessment & Plan (06/01/2025 2:06 PM EDT): - continue Eliquis 5mg BID - continue metoprolol 12.5mg BID - continue atorvastatin 20mg daily - holding losartan 25mg daily given soft Bps (suspected to due GI losses) Assessment & Plan (05/31/2025 4:47 PM EDT): - continue Eliquis 5mg BID - continue metoprolol 12.5mg BID - continue atorvastatin 20mg daily - holding losartan 25mg daily given soft Bps (suspected to due GI losses) Assessment & Plan (05/30/2025 4:10 PM EDT): CHADS2 score is 2 Last echocardiogram without significant change, normal right and left ventricular size and function, ejection fraction is 58% Due to soft BP and dehydration, patient has been receiving IV fluids intermittently Orthostatic hypotension seem to be multifactorial neurogenic in nature however in addition to supine hypertension thought to be from autonomic dysfunction as well as exacerbated by polypharmacy Currently, will continue Eliquis 5 mg twice daily Has been draining HR, which is better controlled today, in low 100s Continue metoprolol to 12.5 mg twice daily (increased from a daily dose yesterday) Continue to hold home Aldactone, amiodarone and Farxiga for soft BP Continue lower extremity BRANDYN stockings slow movement upon awakening sitting for few seconds and then standing Would recommend elevate head of the bed = or < 30 degree during sleep to avoid supine hypertension Recommend keep K >or =4.0 and Mg >or=2.0 Strict I's and O's, daily weight. She should follow-up with acute care nurse practitioner as outpatient, to restart Aldactone, amiodarone and Farxiga Assessment & Plan (05/29/2025 1:04 PM EDT): CHADS2 score is 2 Last echocardiogram without significant change, normal right and left ventricular size and function, ejection fraction is 58% Due to soft BP and dehydration, patient has been receiving IV fluids intermittently Orthostatic hypotension seem to be multifactorial neurogenic in nature however in addition to supine hypertension thought to be from autonomic dysfunction as well as exacerbated by polypharmacy Currently, will continue Eliquis 5 mg twice daily Heart rate is elevated while patient is in therapy, increased metoprolol to 12.5 mg twice daily Continue to hold home Aldactone, amiodarone and Farxiga for soft BP Continue lower extremity BRANDYN stockings slow movement upon awakening sitting for few seconds and then standing Would recommend elevate head of the bed = or < 30 degree during sleep to avoid supine hypertension Recommend keep K >or =4.0 and Mg >or=2.0 Strict I's and O's, daily weight. She should follow-up with acute care nurse practitioner as outpatient, to restart Aldactone, amiodarone and Farxiga Assessment & Plan (05/28/2025 11:42 AM EDT): CHADS2 score is 2 Last echocardiogram without significant change, normal right and left ventricular size and function, ejection fraction is 58% patient has been receiving IV fluids due to dehydration Will follow-up with acute care nurse practitioner as outpatient, to restart Aldactone, amiodarone and Farxiga, anticoagulation for A-fib Currently, will continue Eliquis 5 mg twice daily Patient was noted to have orthostatic hypotension, holding metoprolol and losartan. Orthostatic hypotension seem to be multifactorial neurogenic in nature however in addition to supine hypertension thought to be from autonomic dysfunction as well as exacerbated by polypharmacy Continue lower extremity BRANDYN stockings slow movement upon awakening sitting for few seconds and then standing Would recommend elevate head of the bed = or < 30 degree during sleep to avoid supine hypertension Recommend keep K >or =4.0 and Mg >or=2.0 Strict I's and O's, daily weight. Assessment & Plan (05/27/2025 8:45 AM EDT): BP 94/66-110/76 HR 102-112 Echo 05/14: EF58% IVF bolus: 05/22, 05/24, 05/25, 05/26 - Losartan 25 mg on hold due to orthostatic hypotension -Continue metoprolol succinate 12.5 mg for rate control, previously was on 25 mg -Continue Eliquis 5 mg twice daily -Continue atorvastatin 20 mg daily - outpatient acute care nurse practitioner will need to address: AC for afib, re-starting amiodarone, restarting farxiga and spironolactone - yesterday received IVF for tachycardia and decreased po intake Assessment & Plan (05/26/2025 8:39 AM EDT): Echo 05/14: EF58% IVF bolus: 05/22, 05/24, 05/25 - Losartan 25 mg on hold due to orthostatic hypotension -Continue metoprolol succinate 12.5 mg for rate control, previously was on 25 mg -Continue Eliquis 5 mg twice daily -Continue atorvastatin 20 mg daily - outpatient acute care nurse practitioner will need to address: AC for afib, re-starting amiodarone, restarting farxiga and spironolactone Assessment & Plan (05/25/2025 11:08 AM EDT): Hypotension Echocardiogram (05/14/2025) EF 58 % 05/22: Status post LR bolus Monitor BP every shift and as needed with therapy 05/24:Patient has required 1L of IV fluids due to MARKIE and soft BP-BP and creatinine has been stable today Continue to hold losartan 25 mg due to orthostatic hypotension Continue metoprolol succinate 12.5 mg for rate control (was previously 25 mg) 05/25: Sinus tachycardia on EKG-plan to give additional dose of IV fluids 500 mL Continue Eliquis 12.5 mg BID Assessment & Plan (05/24/2025 1:59 PM EDT): Hypotension Echocardiogram (05/14/2025) EF 58 % 05/22: Status post LR bolus Monitor BP every shift and as needed with therapy Patient has required 1L of IV fluids yesterday due to MARKIE and soft BP-BP and creatinine has been stable today Continue to hold losartan 25 mg due to orthostatic hypotension Continue metoprolol succinate 12.5 mg for rate control (was previously 25 mg) Continue Eliquis 12.5 mg BID Assessment & Plan (05/23/2025 11:57 AM EDT): Hypotension Echocardiogram (05/14/2025) EF 58 % 05/22: Status post LR bolus Monitor BP every shift and as needed with therapy BP has been trending on the softer side plan to give normal saline 100 mL for 10 hours Continue to hold losartan 25 mg due to orthostatic hypotension Continue metoprolol succinate 12.5 mg for rate control (was previously 25 mg) Continue Eliquis 12.5 mg BID Assessment & Plan (05/22/2025 5:12 PM EDT): Echocardiogram (05/14/2025) EF 58 % Patient denies chest pain, palpitation lightheaded and dizziness. She was noted to be hypotensive today,( bp 83/ 52, 91/56, 107/55). Patient to receive 500 ml LR bolus. - continue to hold losartan 25 mg due to orthostatic hypotension - metoprolol succinate reduced from 25 mg to 12.5 mg -continue Eliquis 12.5 mg BID - please continue to trend BP Colostomy complication 05/21/2025 Assessment & Plan (05/30/2025 4:10 PM EDT): Continue ostomy care, good output, monitor Assessment & Plan (05/29/2025 10:12 AM EDT): Continue ostomy care, good output, monitor Assessment & Plan (05/28/2025 11:42 AM EDT): Continue ostomy care, monitor output Assessment & Plan (05/27/2025 8:45 AM EDT): - high output - monitor output - ostomy care per protocol - q3-5d and prn (Reviewed, no change) Assessment & Plan (05/26/2025 8:39 AM EDT): - monitor output - ostomy care per protocol - q3-5d and prn Assessment & Plan (05/25/2025 11:14 AM EDT): Continue to monitor output Ostomy care every 3 to 5 days and as needed MARKIE, 0.98>>1.80>>1.05 Hyponatremia, 132>>131 Likely due to fluid depletion from drain output and poor oral hydration/oral intake Continue to trend creatinine-repeat labs in for AM 05/23: Status post IVF NS at 100 ml/hr for 1L Strict intake/output Continue to encourage oral hydration Check urine lytes-treat as indicated Assessment & Plan (05/24/2025 1:59 PM EDT): Continue to monitor output Ostomy care every 3 to 5 days and as needed MARKIE, 0.98>>1.80>>1.05 Hyponatremia, 132>>131 Likely due to fluid depletion from drain output and poor oral hydration Continue to trend creatinine 05/23: Status post IVF NS at 100 ml/hr for 1L Strict intake/output Continue to encourage oral hydration Assessment & Plan (05/23/2025 2:50 PM EDT): Continue to monitor output Ostomy care every 3 to 5 days and as needed MARKIE, 0.98>>1.80 Hyponatremia, 132 Likely due to fluid depletion from drain output and poor oral hydration Continue to trend creatinine-BMP ordered for AM IVF NS at 100 ml/hr for 1L Strict intake/output Assessment & Plan (05/22/2025 5:12 PM EDT): Patient manages ostomy with minimum assistance, she verbalizes having family bring in home appliance to make it easier for management Anxiety 05/19/2025 Assessment & Plan (06/02/2025 12:31 PM EDT): - continue Valium 6mg PRN - since Remeron isn't effective for her, adjusted to scheduled Rozerem and dc'd Remeron - Home insomnia regimen: uses Soma for sleeping- which we will resume on discharge as there aren't plans to continue benzos longterm (per patient preference); options are limited given prolonged QTC Assessment & Plan (06/01/2025 2:22 PM EDT): - continue Valium 6mg PRN - since Remeron isn't effective for her, adjusted to scheduled Rozerem and dc'd Remeron - Home insomnia regimen: uses Soma for sleeping- which we will resume on discharge as there aren't plans to continue benzos longterm (per patient preference); options are limited given prolonged QTC Assessment & Plan (05/31/2025 4:47 PM EDT): - continue Valium 6mg PRN - continue Remeron 15mg nightly and PRN Rozerem Assessment & Plan (05/30/2025 4:10 PM EDT): Continue Valium and mirtazapine Assessment & Plan (05/29/2025 1:04 PM EDT): Continue Valium PRN and mirtazapine (per patient report, Atarax was not effective and was discontinued.) Assessment & Plan (05/28/2025 11:42 AM EDT): Continue Ativan and mirtazapine (per patient report, Atarax was not effective and was discontinued.) Assessment & Plan (05/27/2025 8:45 AM EDT): - Ativan and mirtazapine -Continue Ativan 0.5 mg nightly as needed - atarax did not help, was previously discontinued (Reviewed, no change) Assessment & Plan (05/26/2025 8:39 AM EDT): - Reports improvement at the Ativan and mirtazapine -Continue Ativan 0.5 mg nightly as needed - atarax did not help, was previously discontinued Assessment & Plan (05/25/2025 10:54 AM EDT): Monitor mood/behavior-behavior appropriate for situation. Patient reports feeling much better today with the Ativan and mirtazapine on board Continue Ativan and Atarax as needed Assessment & Plan (05/24/2025 1:59 PM EDT): Monitor mood/behavior-patient was Continue Atarax as needed Assessment & Plan (05/23/2025 8:57 AM EDT): Monitor mood/behavior Continue Atarax as needed Assessment & Plan (05/22/2025 5:12 PM EDT): Pt is emotional stable this morning - continue atarax 25 Q6h mg PRN Assessment & Plan (05/21/2025 6:47 AM EDT): - Stopped Trazodone as it is causing her headaches - On melatonin 6 mg nightly to help her sleep - Atarax 25 mg as needed for anxiety Assessment & Plan (05/20/2025 12:03 PM EDT): - Stopped Trazodone as it is causing her headaches - On melatonin 6 mg nightly to help her sleep Assessment & Plan (05/19/2025 12:55 PM EDT): - On Trazodone 100 mg nightly Septic shock-resolved 05/16/2025 Assessment & Plan (05/21/2025 6:47 AM EDT): Patient with complex surgical history -perforated colon 2/2 diverticulitis s/p colectomy with hernia repair, revision colostomy and conversion to ileostomy (01/26). This has been complicated by recurrent intra-abdominal abscesses requiring multiple admissions and drainage. 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 Per notes from OSH her abscess cultures were positive for Klebsiella and e.coli. Patient started on pip-tazo and was discontinued on 05/12, then started on ceftriaxone and flagyl for abscess/phlegmon. CT A/P 05/14 shows 2.4cm loculated collection at neck of right parastomal hernia, enlarging fluid collection within mid-abdominal soft tissues with cutaneous drainage track, however no current plan for abscess drainage. Transitioned to oral regimen: cefpodoxime and flagyl 05/15. - Continue cefpodoxime 200 mg q12 - Continue PO flagyl 500 mg q12 - No plan for abscess drainage per IR and general surgery - Continue antibiotics for 2 weeks from 05/15 Assessment & Plan (05/20/2025 6:55 AM EDT): Patient with complex surgical history -perforated colon 2/2 diverticulitis s/p colectomy with hernia repair, revision colostomy and conversion to ileostomy (01/26). This has been complicated by recurrent intra-abdominal abscesses requiring multiple admissions and drainage. 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 Per notes from OSH her abscess cultures were positive for Klebsiella and e.coli. Patient started on pip-tazo and was discontinued on 05/12, then started on ceftriaxone and flagyl for abscess/phlegmon. CT A/P 05/14 shows 2.4cm loculated collection at neck of right parastomal hernia, enlarging fluid collection within mid-abdominal soft tissues with cutaneous drainage track, however no current plan for abscess drainage. Transitioned to oral regimen: cefpodoxime and flagyl 05/15. - Continue cefpodoxime 200 mg q12 - Continue PO flagyl 500 mg q12 - No plan for abscess drainage per IR and general surgery - Continue antibiotics for 2 weeks from 05/15 Assessment & Plan (05/19/2025 6:40 AM EDT): Patient with complex surgical history -perforated colon 2/2 diverticulitis s/p colectomy with hernia repair, revision colostomy and conversion to ileostomy (01/26). This has been complicated by recurrent intra-abdominal abscesses requiring multiple admissions and drainage. 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 Per notes from OSH her abscess cultures were positive for Klebsiella and e.coli. Patient started on pip-tazo and was discontinued on 05/12, then started on ceftriaxone and flagyl for abscess/phlegmon. CT A/P 05/14 shows 2.4cm loculated collection at neck of right parastomal hernia, enlarging fluid collection within mid-abdominal soft tissues with cutaneous drainage track, however no current plan for abscess drainage. Transitioned to oral regimen: cefpodoxime and flagyl 05/15. - Continue cefpodoxime 200 mg q12 - Continue PO flagyl 500 mg q12 - No plan for abscess drainage per IR and general surgery - Continue antibiotics for 2 weeks from 05/15 Assessment & Plan (05/18/2025 6:47 AM EDT): Patient with complex surgical history -perforated colon 2/2 diverticulitis s/p colectomy with hernia repair, revision colostomy and conversion to ileostomy (01/26). This has been complicated by recurrent intra-abdominal abscesses requiring multiple admissions and drainage. 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 Per notes from OSH her abscess cultures were positive for Klebsiella and e.coli. Patient started on pip-tazo and was discontinued on 05/12, then started on ceftriaxone and flagyl for abscess/phlegmon. CT A/P 05/14 shows 2.4cm loculated collection at neck of right parastomal hernia, enlarging fluid collection within mid-abdominal soft tissues with cutaneous drainage track, however no current plan for abscess drainage. Transitioned to oral regimen: cefpodoxime and flagyl 05/15. - Continue cefpodoxime 200 mg q12 - Continue PO flagyl 500 mg q12 - No plan for abscess drainage per IR and general surgery - Continue antibiotics for 2 weeks from 05/15 Assessment & Plan (05/17/2025 2:37 PM EDT): Patient with complex surgical history -perforated colon 2/2 diverticulitis s/p colectomy with hernia repair, revision colostomy and conversion to ileostomy (01/26). This has been complicated by recurrent intra-abdominal abscesses requiring multiple admissions and drainage. 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 Per notes from OSH her abscess cultures were positive for Klebsiella and e.coli. Patient started on pip-tazo and was discontinued on 05/12, then started on ceftriaxone and flagyl for abscess/phlegmon. CT A/P 05/14 shows 2.4cm loculated collection at neck of right parastomal hernia, enlarging fluid collection within mid-abdominal soft tissues with cutaneous drainage track, however no current plan for abscess drainage. Transitioned to oral regimen: cefpodoxime and flagyl 05/15. - Continue cefpodoxime 200 mg q12 - Continue PO flagyl 500 mg q12 - No plan for abscess drainage per IR and general surgery - Continue antibiotics for 2 weeks from 05/15 Assessment & Plan (05/16/2025 7:39 AM EDT): Patient with complex surgical history -perforated colon 2/2 diverticulitis s/p colectomy with hernia repair, revision colostomy and conversion to ileostomy (01/26). This has been complicated by recurrent intra-abdominal abscesses requiring multiple admissions and drainage. 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 Per notes from OSH her abscess cultures were positive for Klebsiella and e.coli. Patient started on pip-tazo and was discontinued on 05/12, then started on ceftriaxone and flagyl for abscess/phlegmon. CT A/P 05/14 shows 2.4cm loculated collection at neck of right parastomal hernia, enlarging fluid collection within mid-abdominal soft tissues with cutaneous drainage track, however no current plan for abscess drainage. Transitioned to oral regimen: cefpodoxime and flagyl 05/15. - Continue cefpodoxime 200 mg q12 - Continue PO flagyl 500 mg q12 - No plan for abscess drainage per IR and general surgery - Continue antibiotics for 2 weeks from 05/15 Nutritional deficiency 05/11/2025 Assessment & Plan (05/15/2025 2:08 PM EDT): CT scan done on 05/15 showed Right lower quadrant parastomal hernia containing fat and multiple nondilated, noninflamed loops of small bowel. Small loculated collection with peripherally enhancing capsule measuring 2.8 x 1.0 cm at the mouth of this hernia. Discussions were had with surgery who believe the collection will resolve and patient should continue being treated with antibiotics. 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 who presented to [facility] on 04/27/2025 with increased drainage from fistula and admitted for septic shock secondary to intra-abdominal abscess. Per notes from OSH her abscess cultures were positive for Klebsiella and E.coli. Abdominal CTA showed the lower ventral abdominal wall with associated drainage tract containing high density material present on the noncontrast portion. Several small hide dense collection superior to the herniated small bowel without rim enhancement, associated gas, possibly representing resolving abscess/phlegmon. MRSA not detected on 05/09/2025. The patient is able to tolerate orally and as such can feed. Nutrition review appreciated, assesment of Inadequate oral intake related to AMS/dysphagia as evidenced by NPO requiring nutrition support. ID Recommendations seen and appreciated. PLAN per nutrition Food & Nutrient Delivery: 1. Regular diet per team 2. Trial Gelatein daily (correa) - No protein shakes as they make her vomit 3. RD to add cheddar cheese cubes daily 4. Encourage/monitor PO intake 5. Trend weights weekly 6. Monitor lytes, replete PRN 7. Recommend MVI with minerals bello PLAN per ID Continue Ceftriaxone 1g IV q24h and flagyl 500mg IV q12h -Follow up CT A/P with contrast today to re-evaluate abdominal abscess to guide treatment duration as prior imaging which reported improvement was CTA from 05/09 -Follow blood cultures Follow up on CT AP, Keep in mind possibility of blood collection. Assessment & Plan (05/13/2025 1:45 PM EDT): Patient has a known history of perforated colon secondary to diverticulitis, status post colectomy with hernia repair, revision colostomy and conversion to ileostomy (01/26) further complicated by chronic intra-abdominal abscess requiring multiple admission and draining who presented to [facility] on 04/27/2025 with increased drainage from fistula and admitted for septic shock secondary to intra-abdominal abscess. Per notes from OSH her abscess cultures were positive for Klebsiella and E.coli. Abdominal CTA showed the lower ventral abdominal wall with associated drainage tract containing high density material present on the noncontrast portion. Several small hide dense collection superior to the herniated small bowel without rim enhancement, associated gas, possibly representing resolving abscess/phlegmon. MRSA not detected on 05/09/2025. The patient is able to tolerate orally and as such can feed. Her recent CMP labs show deficiency and calcium, phosphorus and albumin. Patient would benefit from repletions. Plan Discontinue DHT tube. Per ID recommendations, discontinue IV Zosyn and start ceftriaxone and Flagyl. Repeat CMP mg and Phos. 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 Per notes from OSH her abscess cultures were positive for Klebsiella and E.coli. Abdominal CTA showed no evidence of acute GI bleeding moderate left and small right pleural effusions with associated atelectasis. Redemonstration of within the lower ventral abdominal wall with associated drainage tract containing high density material present on the noncontrast portion. Several small hide dense collection superior to the herniated small bowel without rim enhancement, associated gas, possibly representing resolving abscess/phlegmon. MRSA not detected on 05/09/2025. Discontinue Cefepime and Flagyl Patient without nutritional access, attempted this AM to get DHT tube post- pyrloric however, was unable to. More than likely this is secondary to her prior abdominal surgeries and changing anatomy. Labs noted to show Low Phosphate and it is important to note that this patient is high risk for re-feeding syndrome. - follow up on BMP, Mg, Phos at 8 pm today. - Infectious Disease consulted: Continue IV Zosyn - General surgery consulted, follow up on recommendations: As DHT tube is pre-pyloric, we have consulted IR for DHT advancement. In meantime, have messaged GS if we can start tube feeds even pre-pyloric - Lactic q6, giving gentle fluid hydration D5LR 125 mL/hr for 6 hours Assessment & Plan (05/11/2025 2:04 PM EDT): Septic shock (resolved) Patient has a known history of perforated colon secondary to diverticulitis, status post colectomy with hernia repair, revision colostomy and conversion to ileostomy (01/26) further complicated by chronic intra-abdominal abscess requiring multiple admission and draining who presented to [facility] on 04/27/2025 with increased drainage from fistula and admitted for septic shock secondary to intra-abdominal abscess. Per notes from OSH her abscess cultures were positive for Klebsiella and E.coli. Abdominal CTA showed no evidence of acute GI bleeding moderate left and small right pleural effusions with associated atelectasis. Redemonstration of within the lower ventral abdominal wall with associated drainage tract containing high density material present on the noncontrast portion. Several small hide dense collection superior to the herniated small bowel without rim enhancement, associated gas, possibly representing resolving abscess/phlegmon. MRSA not detected on 05/09/2025. Discontinue Cefepime and Flagyl Patient without nutritional access, attempted this AM to get DHT tube post- pyrloric however, was unable to. More than likely this is secondary to her prior abdominal surgeries and changing anatomy. - Infectious Disease consulted: Continue IV Zosyn - General surgery consulted, follow up on recommendations: As DHT tube is pre-pyloric, we have consulted IR for DHT advancement. In meantime, have messaged GS if we can start tube feeds even pre-pyloric - Lactic q6, giving gentle fluid hydration D5LR 125 mL/hr for 6 hours Intra-abdominal abscess 05/09/2025 Assessment & Plan (06/02/2025 12:31 PM EDT): CT abd/pelvis ( 05/14/2025): Loculated 2.4 cm collection at the neck of the right parastomal hernia, suspicious for abscess. Additional enlarging collection within the mid abdominal soft tissues demonstrates an associated cutaneous drainage tract. Similar moderate left and small right loculated pleural effusions with associated compressive atelectasis. Nodular hepatic contour and diffuse hypoattenuation may suggest cirrhosis. Unchanged position of the percutaneous cholecystostomy tube S/p abx course with Flagyl and Vantin - ileostomy with appropriate output - monitor I/Os; flush w/ 10cc three times daily - PRN zofran - MV/thiamine/folic acid - PT/OT - PM&R following Assessment & Plan (06/01/2025 2:06 PM EDT): CT abd/pelvis ( 05/14/2025): Loculated 2.4 cm collection at the neck of the right parastomal hernia, suspicious for abscess. Additional enlarging collection within the mid abdominal soft tissues demonstrates an associated cutaneous drainage tract. Similar moderate left and small right loculated pleural effusions with associated compressive atelectasis. Nodular hepatic contour and diffuse hypoattenuation may suggest cirrhosis. Unchanged position of the percutaneous cholecystostomy tube S/p abx course with Flagyl and Vantin - ileostomy with appropriate output - monitor I/Os; flush w/ 10cc three times daily - PRN zofran - MV/thiamine/folic acid - PT/OT - PM&R following Assessment & Plan (05/31/2025 4:47 PM EDT): CT abd/pelvis ( 05/14/2025): Loculated 2.4 cm collection at the neck of the right parastomal hernia, suspicious for abscess. Additional enlarging collection within the mid abdominal soft tissues demonstrates an associated cutaneous drainage tract. Similar moderate left and small right loculated pleural effusions with associated compressive atelectasis. Nodular hepatic contour and diffuse hypoattenuation may suggest cirrhosis. Unchanged position of the percutaneous cholecystostomy tube S/p abx course with Flagyl and Vantin - ileostomy with appropriate output - monitor I/Os; flush w/ 10cc three times daily - PRN zofran - MV/thiamine/folic acid - PT/OT - PM&R following Assessment & Plan (05/30/2025 4:10 PM EDT): CT abd/pelvis ( 05/14/2025): Loculated 2.4 cm collection at the neck of the right parastomal hernia, suspicious for abscess. Additional enlarging collection within the mid abdominal soft tissues demonstrates an associated cutaneous drainage tract. Similar moderate left and small right loculated pleural effusions with associated compressive atelectasis. Nodular hepatic contour and diffuse hypoattenuation may suggest cirrhosis. Unchanged position of the percutaneous cholecystostomy tube Recent surgical evaluation and IR recommendations, no plans for abscess drainage. Completed cefpodoxime and Flagyl Continue PCT care as ordered, monitor output Continue flushing with 10 cc of normal saline 3 times a day Patient reported that he had no sleep last night, increased Valium to 6 mg additional 4 mg once as needed total of 10 mg dose Appreciate wound care Continue monitoring for pain, currently on Tylenol as needed Continue management of ostomy as ordered Continue monitoring bowel movements, adjust regimen as needed Continue PM&R Has an appointment with general surgery Dr. Walton on 06/10 [facility] Assessment & Plan (05/29/2025 10:12 AM EDT): Images from the original note were not included. CT abd/pelvis ( 05/14/2025): Loculated 2.4 cm collection at the neck of the right parastomal hernia, suspicious for abscess. Additional enlarging collection within the mid abdominal soft tissues demonstrates an associated cutaneous drainage tract. Similar moderate left and small right loculated pleural effusions with associated compressive atelectasis. Nodular hepatic contour and diffuse hypoattenuation may suggest cirrhosis. Unchanged position of the percutaneous cholecystostomy tube Recent surgical evaluation and IR recommendations, no plans for abscess drainage. Completed cefpodoxime and Flagyl today (05/21 - 05/29) Continue PCT care as ordered, monitor output Continue flushing with 10 cc of normal saline 3 times a day Appreciate wound care Continue monitoring for pain, currently on Tylenol as needed Continue management of ostomy as ordered Continue monitoring bowel movements, adjust regimen as needed Continue PM&R Has an appointment with general surgery Dr. Walton on 06/10 [facility] Assessment & Plan (05/28/2025 11:53 AM EDT): CT abd/pelvis ( 05/14/2025) * Loculated 2.4 cm collection at the neck of the right parastomal hernia, suspicious for abscess. Additional enlarging collection within the mid abdominal soft tissues demonstrates an associated cutaneous drainage tract. * Similar moderate left and small right loculated pleural effusions with associated compressive atelectasis. * Nodular hepatic contour and diffuse hypoattenuation may suggest cirrhosis. * Unchanged position of the percutaneous cholecystostomy tube Recent surgical evaluation and IR recommendations, no plans for abscess drainage. Continue antibiotics cefpodoxime and Flagyl until 05/29/2025 Continue PCT care as ordered, monitor output Appreciate wound care Continue monitoring for pain, currently on Tylenol as needed Continue management of ostomy as ordered Continue monitoring bowel movements, adjust regimen as needed Continue PM&R Has an appointment with general surgery Dr. Walton on 06/10 [facility] Assessment & Plan (05/27/2025 8:45 AM EDT): 05/[address] abd/pelvis ( 05/14/2025) * Loculated 2.4 cm collection at the neck of the right parastomal hernia, suspicious for abscess. Additional enlarging collection within the mid abdominal soft tissues demonstrates an associated cutaneous drainage tract. * Similar moderate left and small right loculated pleural effusions with associated compressive atelectasis. * Nodular hepatic contour and diffuse hypoattenuation may suggest cirrhosis. * Unchanged position of the percutaneous cholecystostomy tube - per surgery and IR no current plan for abscess drainage - antibiotics: cefpodoxime 200mg bid through May 29, oral flagyl 500mg bid through May 29 - continue wound care, wound consult done - wound drain care q shift - continue to monitor/acess pain and adjust pain mgt as needed - Pain mgt: tylenol 650mg q4h prn - monitor I&Os - ileostomy care per protocol - continue bowel regimen (Reviewed, no change) Assessment & Plan (05/26/2025 8:39 AM EDT): WBC 9.8 CT abd/pelvis ( 05/14/2025) * Loculated 2.4 cm collection at the neck of the right parastomal hernia, suspicious for abscess. Additional enlarging collection within the mid abdominal soft tissues demonstrates an associated cutaneous drainage tract. * Similar moderate left and small right loculated pleural effusions with associated compressive atelectasis. * Nodular hepatic contour and diffuse hypoattenuation may suggest cirrhosis. * Unchanged position of the percutaneous cholecystostomy tube - per surgery and IR no current plan for abscess drainage - antibiotics: cefpodoxime 200mg bid through May 29, oral flagyl 500mg bid through May 29 - continue wound care, wound consult done - wound drain care q shift - continue to monitor/acess pain and adjust pain mgt as needed - Pain mgt: tylenol 650mg q4h prn - monitor I&Os - ileostomy care per protocol - continue bowel regimen Assessment & Plan (05/25/2025 10:54 AM EDT): CT abd/pelvis ( 05/14/2025) * Loculated 2.4 cm collection at the neck of the right parastomal hernia, suspicious for abscess. Additional enlarging collection within the mid abdominal soft tissues demonstrates an associated cutaneous drainage tract. * Similar moderate left and small right loculated pleural effusions with associated compressive atelectasis. * Nodular hepatic contour and diffuse hypoattenuation may suggest cirrhosis. * Unchanged position of the percutaneous cholecystostomy tube No current plan for abscess drainage per IR and general surgery. Patient is afebrile, no leukocytosis, denies fevers and chills. - continue cefpodoxime 200 mg BID until May 29 - continue oral flagyl 500 mg BID until May 29 - continue with wound care, apprec wound care input -Monitor/Assess pain - Continue pain management -Continue wound drain care every shift -Monitor I's and O's -Monitor ileostomy -Continue with bowel regimen (Reviewed with no changes) Assessment & Plan (05/24/2025 1:59 PM EDT): CT abd/pelvis ( 05/14/2025) * Loculated 2.4 cm collection at the neck of the right parastomal hernia, suspicious for abscess. Additional enlarging collection within the mid abdominal soft tissues demonstrates an associated cutaneous drainage tract. * Similar moderate left and small right loculated pleural effusions with associated compressive atelectasis. * Nodular hepatic contour and diffuse hypoattenuation may suggest cirrhosis. * Unchanged position of the percutaneous cholecystostomy tube No current plan for abscess drainage per IR and general surgery. Patient is afebrile, no leukocytosis, denies fevers and chills. - continue cefpodoxime 200 mg BID until May 29 - continue oral flagyl 500 mg BID until May 29 - continue with wound care, apprec wound care input -Monitor/Assess pain - Continue pain management -Continue wound drain care every shift -Monitor I's and O's -Monitor ileostomy -Continue with bowel regimen Assessment & Plan (05/23/2025 8:57 AM EDT): CT abd/pelvis ( 05/14/2025) * Loculated 2.4 cm collection at the neck of the right parastomal hernia, suspicious for abscess. Additional enlarging collection within the mid abdominal soft tissues demonstrates an associated cutaneous drainage tract. * Similar moderate left and small right loculated pleural effusions with associated compressive atelectasis. * Nodular hepatic contour and diffuse hypoattenuation may suggest cirrhosis. * Unchanged position of the percutaneous cholecystostomy tube No current plan for abscess drainage per IR and general surgery. Patient is afebrile, no leukocytosis, denies fevers and chills. - continue cefpodoxime 200 mg BID - continue oral flagyl 500 mg BID - continue with wound care, apprec wound care input -Monitor/Assess pain - Continue pain management -Continue wound drain care every shift -Monitor I's and O's -Monitor ileostomy -Continue with bowel regimen Assessment & Plan (05/22/2025 6:49 PM EDT): CT abd/pelvis ( 05/14/2025) * Loculated 2.4 cm collection at the neck of the right parastomal hernia, suspicious for abscess. Additional enlarging collection within the mid abdominal soft tissues demonstrates an associated cutaneous drainage tract. * Similar moderate left and small right loculated pleural effusions with associated compressive atelectasis. * Nodular hepatic contour and diffuse hypoattenuation may suggest cirrhosis. * Unchanged position of the percutaneous cholecystostomy tube No current plan for abscess drainage per IR and general surgery. Patient is afebrile, no leukocytosis, denies fevers and chills. - continue cefpodoxime 200 mg BID - continue oral flagyl 500 mg BID - continue with wound care, apprec wound care input -continue pain management with multimodal regimen. - monitor I/Os -continue wound and drain care - continue with bowel regimen -continue non pharmacological intervention Assessment & Plan (05/21/2025 6:47 AM EDT): Patient with complex surgical history -perforated colon 2/2 diverticulitis s/p colectomy with hernia repair, revision colostomy and conversion to ileostomy (01/26). This has been complicated by recurrent intra-abdominal abscesses requiring multiple admissions and drainage. 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 Per notes from OSH her abscess cultures were positive for Klebsiella and e.coli. Patient started on pip-tazo and was discontinued on 05/12, then started on ceftriaxone and flagyl for abscess/phlegmon. CT A/P 05/14 shows 2.4cm loculated collection at neck of right parastomal hernia, enlarging fluid collection within mid-abdominal soft tissues with cutaneous drainage track, however no current plan for abscess drainage. Transitioned to oral regimen: cefpodoxime and flagyl 05/15. - Continue cefpodoxime 200 mg q12 - Continue PO flagyl 500 mg q12 - No plan for abscess drainage per IR and general surgery - Continue antibiotics for 2 weeks from 05/15 Assessment & Plan (05/20/2025 6:55 AM EDT): Patient with complex surgical history -perforated colon 2/2 diverticulitis s/p colectomy with hernia repair, revision colostomy and conversion to ileostomy (01/26). This has been complicated by recurrent intra-abdominal abscesses requiring multiple admissions and drainage. 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 Per notes from OSH her abscess cultures were positive for Klebsiella and e.coli. Patient started on pip-tazo and was discontinued on 05/12, then started on ceftriaxone and flagyl for abscess/phlegmon. CT A/P 05/14 shows 2.4cm loculated collection at neck of right parastomal hernia, enlarging fluid collection within mid-abdominal soft tissues with cutaneous drainage track, however no current plan for abscess drainage. Transitioned to oral regimen: cefpodoxime and flagyl 05/15. - Continue cefpodoxime 200 mg q12 - Continue PO flagyl 500 mg q12 - No plan for abscess drainage per IR and general surgery - Continue antibiotics for 2 weeks from 05/15 Assessment & Plan (05/19/2025 6:40 AM EDT): Patient with complex surgical history -perforated colon 2/2 diverticulitis s/p colectomy with hernia repair, revision colostomy and conversion to ileostomy (01/26). This has been complicated by recurrent intra-abdominal abscesses requiring multiple admissions and drainage. 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 Per notes from OSH her abscess cultures were positive for Klebsiella and e.coli. Patient started on pip-tazo and was discontinued on 05/12, then started on ceftriaxone and flagyl for abscess/phlegmon. CT A/P 05/14 shows 2.4cm loculated collection at neck of right parastomal hernia, enlarging fluid collection within mid-abdominal soft tissues with cutaneous drainage track, however no current plan for abscess drainage. Transitioned to oral regimen: cefpodoxime and flagyl 05/15. - Continue cefpodoxime 200 mg q12 - Continue PO flagyl 500 mg q12 - No plan for abscess drainage per IR and general surgery - Continue antibiotics for 2 weeks from 05/15 Assessment & Plan (05/18/2025 6:47 AM EDT): Patient with complex surgical history -perforated colon 2/2 diverticulitis s/p colectomy with hernia repair, revision colostomy and conversion to ileostomy (01/26). This has been complicated by recurrent intra-abdominal abscesses requiring multiple admissions and drainage. 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 Per notes from OSH her abscess cultures were positive for Klebsiella and e.coli. Patient started on pip-tazo and was discontinued on 05/12, then started on ceftriaxone and flagyl for abscess/phlegmon. CT A/P 05/14 shows 2.4cm loculated collection at neck of right parastomal hernia, enlarging fluid collection within mid-abdominal soft tissues with cutaneous drainage track, however no current plan for abscess drainage. Transitioned to oral regimen: cefpodoxime and flagyl 05/15. - Continue cefpodoxime 200 mg q12 - Continue PO flagyl 500 mg q12 - No plan for abscess drainage per IR and general surgery - Continue antibiotics for 2 weeks from 05/15 Assessment & Plan (05/17/2025 2:37 PM EDT): Patient with complex surgical history -perforated colon 2/2 diverticulitis s/p colectomy with hernia repair, revision colostomy and conversion to ileostomy (01/26). This has been complicated by recurrent intra-abdominal abscesses requiring multiple admissions and drainage. 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 Per notes from OSH her abscess cultures were positive for Klebsiella and e.coli. Patient started on pip-tazo and was discontinued on 05/12, then started on ceftriaxone and flagyl for abscess/phlegmon. CT A/P 05/14 shows 2.4cm loculated collection at neck of right parastomal hernia, enlarging fluid collection within mid-abdominal soft tissues with cutaneous drainage track, however no current plan for abscess drainage. Transitioned to oral regimen: cefpodoxime and flagyl 05/15. - Continue cefpodoxime 200 mg q12 - Continue PO flagyl 500 mg q12 - No plan for abscess drainage per IR and general surgery - Continue antibiotics for 2 weeks from 05/15 Assessment & Plan (05/16/2025 7:39 AM EDT): Patient with complex surgical history -perforated colon 2/2 diverticulitis s/p colectomy with hernia repair, revision colostomy and conversion to ileostomy (01/26). This has been complicated by recurrent intra-abdominal abscesses requiring multiple admissions and drainage. 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 Per notes from OSH her abscess cultures were positive for Klebsiella and e.coli. Patient started on pip-tazo and was discontinued on 05/12, then started on ceftriaxone and flagyl for abscess/phlegmon. CT A/P 05/14 shows 2.4cm loculated collection at neck of right parastomal hernia, enlarging fluid collection within mid-abdominal soft tissues with cutaneous drainage track, however no current plan for abscess drainage. Transitioned to oral regimen: cefpodoxime and flagyl 05/15. - Continue cefpodoxime 200 mg q12 - Continue PO flagyl 500 mg q12 - No plan for abscess drainage per IR and general surgery - Continue antibiotics for 2 weeks from 05/15 Assessment & Plan (05/15/2025 2:08 PM EDT): CT scan done on 05/15 showed Right lower quadrant parastomal hernia containing fat and multiple nondilated, noninflamed loops of small bowel. Small loculated collection with peripherally enhancing capsule measuring 2.8 x 1.0 cm at the mouth of this hernia. Discussions were had with surgery who believe the collection will resolve and patient should continue being treated with antibiotics. 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 who presented to [facility] on 04/27/2025 with increased drainage from fistula and admitted for septic shock secondary to intra-abdominal abscess. Per notes from OSH her abscess cultures were positive for Klebsiella and E.coli. Abdominal CTA showed the lower ventral abdominal wall with associated drainage tract containing high density material present on the noncontrast portion. Several small hide dense collection superior to the herniated small bowel without rim enhancement, associated gas, possibly representing resolving abscess/phlegmon. MRSA not detected on 05/09/2025. The patient is able to tolerate orally and as such can feed. Nutrition review appreciated, assesment of Inadequate oral intake related to AMS/dysphagia as evidenced by NPO requiring nutrition support. ID Recommendations seen and appreciated. PLAN per nutrition Food & Nutrient Delivery: 1. Regular diet per team 2. Trial Gelatein daily (correa) - No protein shakes as they make her vomit 3. RD to add cheddar cheese cubes daily 4. Encourage/monitor PO intake 5. Trend weights weekly 6. Monitor lytes, replete PRN 7. Recommend MVI with minerals bello PLAN per ID Continue Ceftriaxone 1g IV q24h and flagyl 500mg IV q12h -Follow up CT A/P with contrast today to re-evaluate abdominal abscess to guide treatment duration as prior imaging which reported improvement was CTA from 05/09 -Follow blood cultures Follow up on CT AP, Keep in mind possibility of blood collection. Assessment & Plan (05/13/2025 1:45 PM EDT): Patient has a known history of perforated colon secondary to diverticulitis, status post colectomy with hernia repair, revision colostomy and conversion to ileostomy (01/26) further complicated by chronic intra-abdominal abscess requiring multiple admission and draining who presented to [facility] on 04/27/2025 with increased drainage from fistula and admitted for septic shock secondary to intra-abdominal abscess. Per notes from OSH her abscess cultures were positive for Klebsiella and E.coli. Abdominal CTA showed the lower ventral abdominal wall with associated drainage tract containing high density material present on the noncontrast portion. Several small hide dense collection superior to the herniated small bowel without rim enhancement, associated gas, possibly representing resolving abscess/phlegmon. MRSA not detected on 05/09/2025. The patient is able to tolerate orally and as such can feed. Her recent CMP labs show deficiency and calcium, phosphorus and albumin. Patient would benefit from repletions. Plan Discontinue DHT tube. Per ID recommendations, discontinue IV Zosyn and start ceftriaxone and Flagyl. Repeat CMP mg and Phos. 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 Per notes from OSH her abscess cultures were positive for Klebsiella and E.coli. Abdominal CTA showed no evidence of acute GI bleeding moderate left and small right pleural effusions with associated atelectasis. Redemonstration of within the lower ventral abdominal wall with associated drainage tract containing high density material present on the noncontrast portion. Several small hide dense collection superior to the herniated small bowel without rim enhancement, associated gas, possibly representing resolving abscess/phlegmon. MRSA not detected on 05/09/2025. Discontinue Cefepime and Flagyl Patient without nutritional access, attempted this AM to get DHT tube post- pyrloric however, was unable to. More than likely this is secondary to her prior abdominal surgeries and changing anatomy. Labs noted to show Low Phosphate and it is important to note that this patient is high risk for re-feeding syndrome. - follow up on BMP, Mg, Phos at 8 pm today. - Infectious Disease consulted: Continue IV Zosyn - General surgery consulted, follow up on recommendations: As DHT tube is pre-pyloric, we have consulted IR for DHT advancement. In meantime, have messaged GS if we can start tube feeds even pre-pyloric - Lactic q6, giving gentle fluid hydration D5LR 125 mL/hr for 6 hours Assessment & Plan (05/11/2025 2:04 PM EDT): Septic shock (resolved) Patient has a known history of perforated colon secondary to diverticulitis, status post colectomy with hernia repair, revision colostomy and conversion to ileostomy (01/26) further complicated by chronic intra-abdominal abscess requiring multiple admission and draining who presented to [facility] on 04/27/2025 with increased drainage from fistula and admitted for septic shock secondary to intra-abdominal abscess. Per notes from OSH her abscess cultures were positive for Klebsiella and E.coli. Abdominal CTA showed no evidence of acute GI bleeding moderate left and small right pleural effusions with associated atelectasis. Redemonstration of within the lower ventral abdominal wall with associated drainage tract containing high density material present on the noncontrast portion. Several small hide dense collection superior to the herniated small bowel without rim enhancement, associated gas, possibly representing resolving abscess/phlegmon. MRSA not detected on 05/09/2025. Discontinue Cefepime and Flagyl Patient without nutritional access, attempted this AM to get DHT tube post- pyrloric however, was unable to. More than likely this is secondary to her prior abdominal surgeries and changing anatomy. - Infectious Disease consulted: Continue IV Zosyn - General surgery consulted, follow up on recommendations: As DHT tube is pre-pyloric, we have consulted IR for DHT advancement. In meantime, have messaged GS if we can start tube feeds even pre-pyloric - Lactic q6, giving gentle fluid hydration D5LR 125 mL/hr for 6 hours Assessment & Plan (05/10/2025 1:40 PM EDT): Septic shock (resolved) Patient has a known history of perforated colon secondary to diverticulitis, status post colectomy with hernia repair, revision colostomy and conversion to ileostomy (01/26) further complicated by chronic intra-abdominal abscess requiring multiple admission and draining who presented to [facility] on 04/27/2025 with increased drainage from fistula and admitted for septic shock secondary to intra-abdominal abscess. Per notes from OSH her abscess cultures were positive for Klebsiella and E.coli. Abdominal CTA showed no evidence of acute GI bleeding moderate left and small right pleural effusions with associated atelectasis. Redemonstration of within the lower ventral abdominal wall with associated drainage tract containing high density material present on the noncontrast portion. Several small hide dense collection superior to the herniated small bowel without rim enhancement, associated gas, possibly representing resolving abscess/phlegmon. MRSA not detected on 05/09/2025. - Discontinue Cefepime and Flagyl - Continue IV Zosyn - General surgery consulted, follow up on recommendations. - As per General Surgery: place Dobhoff, serial lactates, check nutrition labs. - Continue to trend lactic acid every 6 hours - Nutrition labs (transferrin pending). Assessment & Plan (05/09/2025 3:39 PM EDT): Septic shock (resolved) Patient has a known history of perforated colon secondary to diverticulitis, status post colectomy with hernia repair, revision colostomy and conversion to ileostomy (01/26) further complicated by chronic intra-abdominal abscess requiring multiple admission and draining who presented to [facility] on 04/27/2025 with increased drainage from fistula and admitted for septic shock secondary to intra-abdominal abscess. Abdominal CTA showed no evidence of acute GI bleeding moderate left and small right pleural effusions with associated atelectasis. Redemonstration of within the lower ventral abdominal wall with associated drainage tract containing high density material present on the noncontrast portion. Several small hide dense collection superior to the herniated small bowel without rim enhancement, associated gas, possibly representing resolving abscess/phlegmon. - Discontinue Cefepime and Flagyl - Start IV Zosyn - Follow up on MRSA swab, consider adding Vancomycin if positive - General surgery consulted, follow up on recommendations. Elevated lactic acid level 05/09/2025 Assessment & Plan (05/15/2025 2:08 PM EDT): CT scan done on 05/15 showed Right lower quadrant parastomal hernia containing fat and multiple nondilated, noninflamed loops of small bowel. Small loculated collection with peripherally enhancing capsule measuring 2.8 x 1.0 cm at the mouth of this hernia. Discussions were had with surgery who believe the collection will resolve and patient should continue being treated with antibiotics. 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 who presented to [facility] on 04/27/2025 with increased drainage from fistula and admitted for septic shock secondary to intra-abdominal abscess. Per notes from OSH her abscess cultures were positive for Klebsiella and E.coli. Abdominal CTA showed the lower ventral abdominal wall with associated drainage tract containing high density material present on the noncontrast portion. Several small hide dense collection superior to the herniated small bowel without rim enhancement, associated gas, possibly representing resolving abscess/phlegmon. MRSA not detected on 05/09/2025. The patient is able to tolerate orally and as such can feed. Nutrition review appreciated, assesment of Inadequate oral intake related to AMS/dysphagia as evidenced by NPO requiring nutrition support. ID Recommendations seen and appreciated. PLAN per nutrition Food & Nutrient Delivery: 1. Regular diet per team 2. Trial Gelatein daily (correa) - No protein shakes as they make her vomit 3. RD to add cheddar cheese cubes daily 4. Encourage/monitor PO intake 5. Trend weights weekly 6. Monitor lytes, replete PRN 7. Recommend MVI with minerals bello PLAN per ID Continue Ceftriaxone 1g IV q24h and flagyl 500mg IV q12h -Follow up CT A/P with contrast today to re-evaluate abdominal abscess to guide treatment duration as prior imaging which reported improvement was CTA from 05/09 -Follow blood cultures Follow up on CT AP, Keep in mind possibility of blood collection. Assessment & Plan (05/13/2025 1:45 PM EDT): Patient has a known history of perforated colon secondary to diverticulitis, status post colectomy with hernia repair, revision colostomy and conversion to ileostomy (01/26) further complicated by chronic intra-abdominal abscess requiring multiple admission and draining who presented to [facility] on 04/27/2025 with increased drainage from fistula and admitted for septic shock secondary to intra-abdominal abscess. Per notes from OSH her abscess cultures were positive for Klebsiella and E.coli. Abdominal CTA showed the lower ventral abdominal wall with associated drainage tract containing high density material present on the noncontrast portion. Several small hide dense collection superior to the herniated small bowel without rim enhancement, associated gas, possibly representing resolving abscess/phlegmon. MRSA not detected on 05/09/2025. The patient is able to tolerate orally and as such can feed. Her recent CMP labs show deficiency and calcium, phosphorus and albumin. Patient would benefit from repletions. Plan Discontinue DHT tube. Per ID recommendations, discontinue IV Zosyn and start ceftriaxone and Flagyl. Repeat CMP mg and Phos. 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 Per notes from OSH her abscess cultures were positive for Klebsiella and E.coli. Abdominal CTA showed no evidence of acute GI bleeding moderate left and small right pleural effusions with associated atelectasis. Redemonstration of within the lower ventral abdominal wall with associated drainage tract containing high density material present on the noncontrast portion. Several small hide dense collection superior to the herniated small bowel without rim enhancement, associated gas, possibly representing resolving abscess/phlegmon. MRSA not detected on 05/09/2025. Discontinue Cefepime and Flagyl Patient without nutritional access, attempted this AM to get DHT tube post- pyrloric however, was unable to. More than likely this is secondary to her prior abdominal surgeries and changing anatomy. Labs noted to show Low Phosphate and it is important to note that this patient is high risk for re-feeding syndrome. - follow up on BMP, Mg, Phos at 8 pm today. - Infectious Disease consulted: Continue IV Zosyn - General surgery consulted, follow up on recommendations: As DHT tube is pre-pyloric, we have consulted IR for DHT advancement. In meantime, have messaged GS if we can start tube feeds even pre-pyloric - Lactic q6, giving gentle fluid hydration D5LR 125 mL/hr for 6 hours Assessment & Plan (05/11/2025 2:04 PM EDT): Septic shock (resolved) Patient has a known history of perforated colon secondary to diverticulitis, status post colectomy with hernia repair, revision colostomy and conversion to ileostomy (01/26) further complicated by chronic intra-abdominal abscess requiring multiple admission and draining who presented to [facility] on 04/27/2025 with increased drainage from fistula and admitted for septic shock secondary to intra-abdominal abscess. Per notes from OSH her abscess cultures were positive for Klebsiella and E.coli. Abdominal CTA showed no evidence of acute GI bleeding moderate left and small right pleural effusions with associated atelectasis. Redemonstration of within the lower ventral abdominal wall with associated drainage tract containing high density material present on the noncontrast portion. Several small hide dense collection superior to the herniated small bowel without rim enhancement, associated gas, possibly representing resolving abscess/phlegmon. MRSA not detected on 05/09/2025. Discontinue Cefepime and Flagyl Patient without nutritional access, attempted this AM to get DHT tube post- pyrloric however, was unable to. More than likely this is secondary to her prior abdominal surgeries and changing anatomy. - Infectious Disease consulted: Continue IV Zosyn - General surgery consulted, follow up on recommendations: As DHT tube is pre-pyloric, we have consulted IR for DHT advancement. In meantime, have messaged GS if we can start tube feeds even pre-pyloric - Lactic q6, giving gentle fluid hydration D5LR 125 mL/hr for 6 hours Assessment & Plan (05/10/2025 1:40 PM EDT): Upon admission lactic acid noted to be 4.7. Latest lactic acid was 4.5. CTA chest for PE performed today showed no evidence of pulmonary embolism. Elevated lactic acid more likely to be in the setting of intraabdominal infection. Current lactic acid 3.5, slowly downtrending. - Will continue to monitor every 6 hours Assessment & Plan (05/09/2025 3:39 PM EDT): Upon admission lactic acid noted to be 4.7. Latest lactic acid was 4.5. CTA chest for PE performed today showed no evidence of pulmonary embolism. Elevated lactic acid more likely to be in the setting of previous seizure episode. - Will continue to monitor Anemia 05/09/2025 Assessment & Plan (05/21/2025 6:47 AM EDT): New onset thrombocytopenia, concerning for DIC in the setting of recent septic shock with intra-abdominal infection with prolonged coagulation times and hypofibrinogenemia, though alternative explanations include synthetic liver dysfunction, medication effect (antibiotics, diuretics, anti-epileptics), and HLH (bicytopenia, hypofibrinogenemia), less likely TMA (hemolytic panel negative, renal function normal), HIT (heparin PF4 antibody negative), ITP, or hematologic malignancy. Platelets continuously improving, up to 181 on 05/18 - Trend CBC daily - Transfuse for hemoglobin less than 7, platelets less than 20,000 (given bleeding risk with DIC) - Continue Eliquis 5 mg daily - Continue folic acid 1 mg daily for folate deficiency Assessment & Plan (05/20/2025 6:55 AM EDT): New onset thrombocytopenia, concerning for DIC in the setting of recent septic shock with intra-abdominal infection with prolonged coagulation times and hypofibrinogenemia, though alternative explanations include synthetic liver dysfunction, medication effect (antibiotics, diuretics, anti-epileptics), and HLH (bicytopenia, hypofibrinogenemia), less likely TMA (hemolytic panel negative, renal function normal), HIT (heparin PF4 antibody negative), ITP, or hematologic malignancy. Platelets continuously improving, up to 181 on 05/18 - Trend CBC daily - Transfuse for hemoglobin less than 7, platelets less than 20,000 (given bleeding risk with DIC) - Continue Eliquis 5 mg daily in the setting of improving platelets - Continue folic acid 1 mg daily for folate deficiency Assessment & Plan (05/19/2025 12:55 PM EDT): New onset thrombocytopenia, concerning for DIC in the setting of recent septic shock with intra-abdominal infection with prolonged coagulation times and hypofibrinogenemia, though alternative explanations include synthetic liver dysfunction, medication effect (antibiotics, diuretics, anti-epileptics), and HLH (bicytopenia, hypofibrinogenemia), less likely TMA (hemolytic panel negative, renal function normal), HIT (heparin PF4 antibody negative), ITP, or hematologic malignancy. Platelets continuously improving, up to 181 on 05/18 - Trend CBC daily - Transfuse for hemoglobin less than 7, platelets less than 20,000 (given bleeding risk with DIC) - Continue Eliquis 5 mg daily in the setting of improving platelets - Continue folic acid 1 mg daily for folate deficiency Assessment & Plan (05/18/2025 12:10 PM EDT): New onset thrombocytopenia, concerning for DIC in the setting of recent septic shock with intra-abdominal infection with prolonged coagulation times and hypofibrinogenemia, though alternative explanations include synthetic liver dysfunction, medication effect (antibiotics, diuretics, anti-epileptics), and HLH (bicytopenia, hypofibrinogenemia), less likely TMA (hemolytic panel negative, renal function normal), HIT (heparin PF4 antibody negative), ITP, or hematologic malignancy. Platelets continuously improving, up to 181 on 05/18 - Trend CBC daily - Transfuse for hemoglobin less than 7, platelets less than 20,000 (given bleeding risk with DIC) - Started Eliquis 5 mg daily in the setting of improving platelets - Continue folic acid 1 mg daily for folate deficiency Assessment & Plan (05/17/2025 2:37 PM EDT): New onset thrombocytopenia, concerning for DIC in the setting of recent septic shock with intra-abdominal infection with prolonged coagulation times and hypofibrinogenemia, though alternative explanations include synthetic liver dysfunction, medication effect (antibiotics, diuretics, anti-epileptics), and HLH (bicytopenia, hypofibrinogenemia), less likely TMA (hemolytic panel negative, renal function normal), HIT (heparin PF4 antibody negative), ITP, or hematologic malignancy. Platelets improved 05/16 to 65k. Improvement anticipated by hematology. Today: plt count improving, 101 -Trend CBC and DIC panel with PTT, PT/INR, fibrinogen, and D-dimer daily -Transfuse for hemoglobin less than 7, platelets less than 20,000 (given bleeding risk with DIC) -If bleeding, please maintain fibrinogen greater than 100 with cryoprecipitate; if no bleeding, can just monitor instead -Will restart eliquis in the setting of improving plt counts, monitor plts daily -Continue folic acid 1 mg daily for folate deficiency Assessment & Plan (05/16/2025 11:59 AM EDT): New onset thrombocytopenia, concerning for DIC in the setting of recent septic shock with intra-abdominal infection with prolonged coagulation times and hypofibrinogenemia, though alternative explanations include synthetic liver dysfunction, medication effect (antibiotics, diuretics, anti-epileptics), and HLH (bicytopenia, hypofibrinogenemia), less likely TMA (hemolytic panel negative, renal function normal), HIT (heparin PF4 antibody negative), ITP, or hematologic malignancy. Platelets improved 05/16 to 65k. Improvement anticipated by hematology. -Trend CBC and DIC panel with PTT, PT/INR, fibrinogen, and D-dimer daily -Transfuse for hemoglobin less than 7, platelets less than 20,000 (given bleeding risk with DIC) -If bleeding, please maintain fibrinogen greater than 100 with cryoprecipitate; if no bleeding, can just monitor instead -Defer anticoagulation in the setting of severe thrombocytopenia -Continue folic acid 1 mg daily for folate deficiency Assessment & Plan (05/15/2025 2:08 PM EDT): Patient's hospital course has been complicated by multiple lab reports anemia and thrombocytopenia. There is no recent history of bleeding. Hemoglobin repeated reviewed normal results Plan Continue to trend CBCs,CMPS Continue coagulation screen Assessment & Plan (05/14/2025 4:48 PM EDT): Patient's hospital course has been complicated by multiple lab reports anemia and thrombocytopenia. There is no recent history of bleeding. Hemoglobin repeated reviewed normal results Plan Continue to trend CBCs Continue coagulation screen Assessment & Plan (05/13/2025 1:45 PM EDT): Patient's hospital course has been complicated by multiple lab reports anemia and thrombocytopenia. There is no recent history of bleeding. Hematology and oncology review appreciated, which states that patient should be transfused platelets if the counts goes below 20. Plan Transfuse 1 unit of platelets. Repeat CBC, CMP and DIC panel tomorrow per hematology recommendations. Continue folic acid supplementation If patient was actively bleeding again, we will need to maintain fibrinogen greater than 100. Assessment & Plan (05/12/2025 5:04 PM EDT): Chart review, prior to transfer patient had a acute drop in hemoglobin from 6.4. Patient arrives status post 1 unit of packed red blood cells, hemoglobin increased to 7.1. On previous center patient found to have thrombocytopenia, thought to be in the setting of bone marrow suppression.patient arrived with diffuse bruising and ecchymosis on skin.patient previously on DVT prophylaxis with heparin on outside hospital. Hemoglobin today 8.2, platelets 45. abdominal CTA showed no evidence of acute GI bleeding. Fibrinogen 80, lactate dehydrogenase 129, PTT 25, PTT 44. Patient did receive heparin at outside hospital for DVT prophylaxis, HIT testing negative. Component Value Date PLT 27 (L) 05/11/2025 PLT 36 (L) 05/10/2025 PLT 45 (L) 05/09/2025 PLT 45 (L) 05/08/2025 -Heme onc consult today seen with thanks Monitor daily CBC, CMP, and DIC panel (PT/PTT/INR, and fibrinogen.) -Provide supportive transfusions if Hgb <7 or Plts <20K (considering prior active bleeding). -Continue folic acid supplementation (1 mg). -If patient does actively bleed again, will need to maintain fibrinogen >100. - Assessment & Plan (05/11/2025 8:43 AM EDT): Chart review, prior to transfer patient had a acute drop in hemoglobin from 6.4. Patient arrives status post 1 unit of packed red blood cells, hemoglobin increased to 7.1. On previous center patient found to have thrombocytopenia, thought to be in the setting of bone marrow suppression.patient arrived with diffuse bruising and ecchymosis on skin.patient previously on DVT prophylaxis with heparin on outside hospital. Hemoglobin today 8.2, platelets 45. abdominal CTA showed no evidence of acute GI bleeding. Fibrinogen 80, lactate dehydrogenase 129, PTT 25, PTT 44. Patient did receive heparin at outside hospital for DVT prophylaxis, HIT testing negative. Differential at this time for thrombocytopenia includes: DIC from infection or possible liver dysfunction, medication side-effects Lab Results Component Value Date PLT 27 (L) 05/11/2025 PLT 36 (L) 05/10/2025 PLT 45 (L) 05/09/2025 PLT 45 (L) 05/08/2025 -Heme onc consulted: recommended trending CBC and DIC panel with PTT, PT/INR, fibrinogen, and D-dimer daily -Transfuse for hemoglobin less than 7, platelets less than 10,000 -If bleeding, please maintain fibrinogen greater than 100 -If no bleeding, can monitor fibrinogen closely for now - Folic acid 1 mg daily for folate deficiency - Continue to monitor hemoglobin and platelets Assessment & Plan (05/10/2025 1:40 PM EDT): Chart review, prior to transfer patient had a acute drop in hemoglobin from 6.4. Patient arrives status post 1 unit of packed red blood cells, hemoglobin increased to 7.1. On previous center patient found to have thrombocytopenia, thought to be in the setting of bone marrow suppression.patient arrived with diffuse bruising and ecchymosis on skin.patient previously on DVT prophylaxis with heparin on outside hospital. Hemoglobin today 8.2, platelets 45. abdominal CTA showed no evidence of acute GI bleeding. Fibrinogen 80, lactate dehydrogenase 129, PTT 25, PTT 44. Hematology recommendations: -Please send peripheral blood smear with hematopathology review, mixing studies, D-dimer, reticulocyte count/index, iron panel, ferritin, and triglycerides, follow up -Trend CBC and DIC panel with PTT, PT/INR, fibrinogen, and D-dimer daily -Transfuse for hemoglobin less than 7, platelets less than 10,000 -If bleeding, please maintain fibrinogen greater than 100 -If no bleeding, can monitor fibrinogen closely for now -Defer anticoagulation in the setting of severe thrombocytopenia -Please start folic acid 1 mg daily for folate deficiency - Continue to monitor hemoglobin and platelets - Transfuse if Hb <7 mg/dL - Hematology consulted, follow-up on recommendations Assessment & Plan (05/09/2025 3:39 PM EDT): Chart review, prior to transfer patient had a acute drop in hemoglobin from 6.4. Patient arrives status post 1 unit of packed red blood cells, hemoglobin increased to 7.1. On previous center patient found to have thrombocytopenia, thought to be in the setting of bone marrow suppression.patient arrived with diffuse bruising and ecchymosis on skin.patient previously on DVT prophylaxis with heparin on outside hospital. Hemoglobin today 8.2, platelets 45. abdominal CTA showed no evidence of acute GI bleeding. Fibrinogen 80, lactate dehydrogenase 129, PTT 25, PTT 44. - Continue to monitor hemoglobin and platelets - Transfuse if Hb <7 mg/dL - Hematology consulted, follow-up on recommendations Thrombocytopenia-resolved 05/09/2025 Assessment & Plan (05/21/2025 6:47 AM EDT): New onset thrombocytopenia, concerning for DIC in the setting of recent septic shock with intra-abdominal infection with prolonged coagulation times and hypofibrinogenemia, though alternative explanations include synthetic liver dysfunction, medication effect (antibiotics, diuretics, anti-epileptics), and HLH (bicytopenia, hypofibrinogenemia), less likely TMA (hemolytic panel negative, renal function normal), HIT (heparin PF4 antibody negative), ITP, or hematologic malignancy. Platelets continuously improving, up to 181 on 05/18 - Trend CBC daily - Transfuse for hemoglobin less than 7, platelets less than 20,000 (given bleeding risk with DIC) - Continue Eliquis 5 mg daily - Continue folic acid 1 mg daily for folate deficiency Assessment & Plan (05/20/2025 6:55 AM EDT): New onset thrombocytopenia, concerning for DIC in the setting of recent septic shock with intra-abdominal infection with prolonged coagulation times and hypofibrinogenemia, though alternative explanations include synthetic liver dysfunction, medication effect (antibiotics, diuretics, anti-epileptics), and HLH (bicytopenia, hypofibrinogenemia), less likely TMA (hemolytic panel negative, renal function normal), HIT (heparin PF4 antibody negative), ITP, or hematologic malignancy. Platelets continuously improving, up to 181 on 05/18 - Trend CBC daily - Transfuse for hemoglobin less than 7, platelets less than 20,000 (given bleeding risk with DIC) - Continue Eliquis 5 mg daily in the setting of improving platelets - Continue folic acid 1 mg daily for folate deficiency Assessment & Plan (05/19/2025 12:55 PM EDT): New onset thrombocytopenia, concerning for DIC in the setting of recent septic shock with intra-abdominal infection with prolonged coagulation times and hypofibrinogenemia, though alternative explanations include synthetic liver dysfunction, medication effect (antibiotics, diuretics, anti-epileptics), and HLH (bicytopenia, hypofibrinogenemia), less likely TMA (hemolytic panel negative, renal function normal), HIT (heparin PF4 antibody negative), ITP, or hematologic malignancy. Platelets continuously improving, up to 181 on 05/18 - Trend CBC daily - Transfuse for hemoglobin less than 7, platelets less than 20,000 (given bleeding risk with DIC) - Continue Eliquis 5 mg daily in the setting of improving platelets - Continue folic acid 1 mg daily for folate deficiency Assessment & Plan (05/18/2025 12:10 PM EDT): New onset thrombocytopenia, concerning for DIC in the setting of recent septic shock with intra-abdominal infection with prolonged coagulation times and hypofibrinogenemia, though alternative explanations include synthetic liver dysfunction, medication effect (antibiotics, diuretics, anti-epileptics), and HLH (bicytopenia, hypofibrinogenemia), less likely TMA (hemolytic panel negative, renal function normal), HIT (heparin PF4 antibody negative), ITP, or hematologic malignancy. Platelets continuously improving, up to 181 on 05/18 - Trend CBC daily - Transfuse for hemoglobin less than 7, platelets less than 20,000 (given bleeding risk with DIC) - Started Eliquis 5 mg daily in the setting of improving platelets - Continue folic acid 1 mg daily for folate deficiency Assessment & Plan (05/17/2025 2:37 PM EDT): New onset thrombocytopenia, concerning for DIC in the setting of recent septic shock with intra-abdominal infection with prolonged coagulation times and hypofibrinogenemia, though alternative explanations include synthetic liver dysfunction, medication effect (antibiotics, diuretics, anti-epileptics), and HLH (bicytopenia, hypofibrinogenemia), less likely TMA (hemolytic panel negative, renal function normal), HIT (heparin PF4 antibody negative), ITP, or hematologic malignancy. Platelets improved 05/16 to 65k. Improvement anticipated by hematology. Today: plt count improving, 101 -Trend CBC and DIC panel with PTT, PT/INR, fibrinogen, and D-dimer daily -Transfuse for hemoglobin less than 7, platelets less than 20,000 (given bleeding risk with DIC) -If bleeding, please maintain fibrinogen greater than 100 with cryoprecipitate; if no bleeding, can just monitor instead -Will restart eliquis in the setting of improving plt counts, monitor plts daily -Continue folic acid 1 mg daily for folate deficiency Assessment & Plan (05/16/2025 11:59 AM EDT): New onset thrombocytopenia, concerning for DIC in the setting of recent septic shock with intra-abdominal infection with prolonged coagulation times and hypofibrinogenemia, though alternative explanations include synthetic liver dysfunction, medication effect (antibiotics, diuretics, anti-epileptics), and HLH (bicytopenia, hypofibrinogenemia), less likely TMA (hemolytic panel negative, renal function normal), HIT (heparin PF4 antibody negative), ITP, or hematologic malignancy. Platelets improved 05/16 to 65k. Improvement anticipated by hematology. -Trend CBC and DIC panel with PTT, PT/INR, fibrinogen, and D-dimer daily -Transfuse for hemoglobin less than 7, platelets less than 20,000 (given bleeding risk with DIC) -If bleeding, please maintain fibrinogen greater than 100 with cryoprecipitate; if no bleeding, can just monitor instead -Defer anticoagulation in the setting of severe thrombocytopenia -Continue folic acid 1 mg daily for folate deficiency Assessment & Plan (05/15/2025 2:08 PM EDT): Patient's hospital course has been complicated by multiple lab reports anemia and thrombocytopenia. There is no recent history of bleeding. Hemoglobin repeated reviewed normal results Plan Continue to trend CBCs,CMPS Continue coagulation screen Assessment & Plan (05/14/2025 4:48 PM EDT): Patient's hospital course has been complicated by multiple lab reports anemia and thrombocytopenia. There is no recent history of bleeding. Hemoglobin repeated reviewed normal results Plan Continue to trend CBCs Continue coagulation screen Assessment & Plan (05/13/2025 1:45 PM EDT): Patient's hospital course has been complicated by multiple lab reports anemia and thrombocytopenia. There is no recent history of bleeding. Hematology and oncology review appreciated, which states that patient should be transfused platelets if the counts goes below 20. Plan Transfuse 1 unit of platelets. Repeat CBC, CMP and DIC panel tomorrow per hematology recommendations. Continue folic acid supplementation If patient was actively bleeding again, we will need to maintain fibrinogen greater than 100. Assessment & Plan (05/12/2025 5:04 PM EDT): Chart review, prior to transfer patient had a acute drop in hemoglobin from 6.4. Patient arrives status post 1 unit of packed red blood cells, hemoglobin increased to 7.1. On previous center patient found to have thrombocytopenia, thought to be in the setting of bone marrow suppression.patient arrived with diffuse bruising and ecchymosis on skin.patient previously on DVT prophylaxis with heparin on outside hospital. Hemoglobin today 8.2, platelets 45. abdominal CTA showed no evidence of acute GI bleeding. Fibrinogen 80, lactate dehydrogenase 129, PTT 25, PTT 44. Patient did receive heparin at outside hospital for DVT prophylaxis, HIT testing negative. Component Value Date PLT 27 (L) 05/11/2025 PLT 36 (L) 05/10/2025 PLT 45 (L) 05/09/2025 PLT 45 (L) 05/08/2025 -Heme onc consult today seen with thanks Monitor daily CBC, CMP, and DIC panel (PT/PTT/INR, and fibrinogen.) -Provide supportive transfusions if Hgb <7 or Plts <20K (considering prior active bleeding). -Continue folic acid supplementation (1 mg). -If patient does actively bleed again, will need to maintain fibrinogen >100. - Assessment & Plan (05/11/2025 8:43 AM EDT): Chart review, prior to transfer patient had a acute drop in hemoglobin from 6.4. Patient arrives status post 1 unit of packed red blood cells, hemoglobin increased to 7.1. On previous center patient found to have thrombocytopenia, thought to be in the setting of bone marrow suppression.patient arrived with diffuse bruising and ecchymosis on skin.patient previously on DVT prophylaxis with heparin on outside hospital. Hemoglobin today 8.2, platelets 45. abdominal CTA showed no evidence of acute GI bleeding. Fibrinogen 80, lactate dehydrogenase 129, PTT 25, PTT 44. Patient did receive heparin at outside hospital for DVT prophylaxis, HIT testing negative. Differential at this time for thrombocytopenia includes: DIC from infection or possible liver dysfunction, medication side-effects Lab Results Component Value Date PLT 27 (L) 05/11/2025 PLT 36 (L) 05/10/2025 PLT 45 (L) 05/09/2025 PLT 45 (L) 05/08/2025 -Heme onc consulted: recommended trending CBC and DIC panel with PTT, PT/INR, fibrinogen, and D-dimer daily -Transfuse for hemoglobin less than 7, platelets less than 10,000 -If bleeding, please maintain fibrinogen greater than 100 -If no bleeding, can monitor fibrinogen closely for now - Folic acid 1 mg daily for folate deficiency - Continue to monitor hemoglobin and platelets Assessment & Plan (05/10/2025 1:40 PM EDT): Chart review, prior to transfer patient had a acute drop in hemoglobin from 6.4. Patient arrives status post 1 unit of packed red blood cells, hemoglobin increased to 7.1. On previous center patient found to have thrombocytopenia, thought to be in the setting of bone marrow suppression.patient arrived with diffuse bruising and ecchymosis on skin.patient previously on DVT prophylaxis with heparin on outside hospital. Hemoglobin today 8.2, platelets 45. abdominal CTA showed no evidence of acute GI bleeding. Fibrinogen 80, lactate dehydrogenase 129, PTT 25, PTT 44. Hematology recommendations: -Please send peripheral blood smear with hematopathology review, mixing studies, D-dimer, reticulocyte count/index, iron panel, ferritin, and triglycerides, follow up -Trend CBC and DIC panel with PTT, PT/INR, fibrinogen, and D-dimer daily -Transfuse for hemoglobin less than 7, platelets less than 10,000 -If bleeding, please maintain fibrinogen greater than 100 -If no bleeding, can monitor fibrinogen closely for now -Defer anticoagulation in the setting of severe thrombocytopenia -Please start folic acid 1 mg daily for folate deficiency - Continue to monitor hemoglobin and platelets - Transfuse if Hb <7 mg/dL - Hematology consulted, follow-up on recommendations Assessment & Plan (05/09/2025 3:39 PM EDT): Chart review, prior to transfer patient had a acute drop in hemoglobin from 6.4. Patient arrives status post 1 unit of packed red blood cells, hemoglobin increased to 7.1. On previous center patient found to have thrombocytopenia, thought to be in the setting of bone marrow suppression.patient arrived with diffuse bruising and ecchymosis on skin.patient previously on DVT prophylaxis with heparin on outside hospital. Hemoglobin today 8.2, platelets 45. abdominal CTA showed no evidence of acute GI bleeding. Fibrinogen 80, lactate dehydrogenase 129, PTT 25, PTT 44. - Continue to monitor hemoglobin and platelets - Transfuse if Hb <7 mg/dL - Hematology consulted, follow-up on recommendations Pleural effusion 05/09/2025 Assessment & Plan (05/21/2025 6:47 AM EDT): CT 9/10 showed small right and moderate left layering effusion with associated compressive atelectasis. L pleural tap done 05/16, suggestive of transudate effusion. Last albumin is 3, no hypooncotic state. TTE done 05/14 showed EF 58% with moderate mitral regurgitation. Pleural effusion could be in the setting of MR. - Continue monitoring - Follow up on pleural culture Assessment & Plan (05/20/2025 6:55 AM EDT): CT 9/10 showed small right and moderate left layering effusion with associated compressive atelectasis. L pleural tap done 05/16, suggestive of transudate effusion. Last albumin is 3, no hypooncotic state. TTE done 05/14 showed EF 58% with moderate mitral regurgitation. Pleural effusion could be in the setting of MR. - Continue monitoring - Follow up on pleural culture Assessment & Plan (05/19/2025 6:40 AM EDT): CT 9/10 showed small right and moderate left layering effusion with associated compressive atelectasis. L pleural tap done 05/16, suggestive of transudate effusion. Last albumin is 3, no hypooncotic state. TTE done 05/14 showed EF 58% with moderate mitral regurgitation. Pleural effusion could be in the setting of MR. - Continue monitoring - Follow up on pleural culture Assessment & Plan (05/18/2025 12:10 PM EDT): CT 9/10 showed small right and moderate left layering effusion with associated compressive atelectasis. L pleural tap done 05/16, suggestive of transudate effusion. Last albumin is 3, no hypooncotic state. TTE done 05/14 showed EF 58% with moderate mitral regurgitation. Pleural effusion could be in the setting of MR. - Continue monitoring - Follow up on pleural culture Assessment & Plan (05/17/2025 2:37 PM EDT): CT 9/10: small right and moderate left layering effusion with associated compressive atelectasis. L pleural tap done yesterday, suggestive of transudate effusion Last albumin is 3, no hypooncotic state TTE: 05/14/2025 Left ventricular systolic function is normal. The quantitative EF is 58% by 3D imaging, and 64% by 2D Louis biplane. Right ventricular systolic function is normal. There is moderate mitral regurgitation. Possible MR as a cause Plan - continue monitoring - CXR tomorrow - follow up on culture Assessment & Plan (05/16/2025 11:59 AM EDT): CT 05/14: small right and moderate left layering effusion with associated compressive atelectasis. The right effusion is partially loculated tracking into the major fissure. No intervention as per thoracic surgery. Patient on room air, saturating well. - Continue to monitor for now - Consider thoracentesis if platelets continuously improve Assessment & Plan (05/15/2025 2:08 PM EDT): Chest CTA done on admission showed moderate left and small right pleural effusions with associated atelectasis. - Thoracic surgery consulted, follow up on recommendations - As per thoracic surgery, no indication for pigtail drainage of either effusion. Sepsis most likely to be due to abdominal process. No thoracic surgery interventions appear necessary. Assessment & Plan (05/14/2025 4:48 PM EDT): Chest CTA done on admission showed moderate left and small right pleural effusions with associated atelectasis. - Thoracic surgery consulted, follow up on recommendations - As per thoracic surgery, no indication for pigtail drainage of either effusion. Sepsis most likely to be due to abdominal process. No thoracic surgery interventions appear necessary. Assessment & Plan (05/13/2025 1:45 PM EDT): Chest CTA done on admission showed moderate left and small right pleural effusions with associated atelectasis. - Thoracic surgery consulted, follow up on recommendations - As per thoracic surgery, no indication for pigtail drainage of either effusion. Sepsis most likely to be due to abdominal process. No thoracic surgery interventions appear necessary. Assessment & Plan (05/12/2025 4:13 PM EDT): Chest CTA done on admission showed moderate left and small right pleural effusions with associated atelectasis. - Thoracic surgery consulted, follow up on recommendations - As per thoracic surgery, no indication for pigtail drainage of either effusion. Sepsis most likely to be due to abdominal process. No thoracic surgery interventions appear necessary. Assessment & Plan (05/11/2025 8:43 AM EDT): Chest CTA done on admission showed moderate left and small right pleural effusions with associated atelectasis. - Thoracic surgery consulted, follow up on recommendations - As per thoracic surgery, no indication for pigtail drainage of either effusion. Sepsis most likely to be due to abdominal process. No thoracic surgery interventions appear necessary. Assessment & Plan (05/10/2025 6:43 AM EDT): Chest CTA done on admission showed moderate left and small right pleural effusions with associated atelectasis. - Thoracic surgery consulted, follow up on recommendations - As per thoracic surgery, no indication for pigtail drainage of either effusion. Sepsis most likely to be due to abdominal process. No thoracic surgery interventions appear necessary. Assessment & Plan (05/09/2025 3:39 PM EDT): Chest CTA done on admission showed moderate left and small right pleural effusions with associated atelectasis. - Consult thoracic surgery, follow up on recommendations Stress-induced cardiomyopathy 05/09/2025 Assessment & Plan (06/02/2025 12:31 PM EDT): - continue Eliquis 5mg BID - continue metoprolol 12.5mg BID - continue atorvastatin 20mg daily - holding losartan 25mg daily given soft Bps (suspected to due GI losses) Assessment & Plan (06/01/2025 2:06 PM EDT): - continue Eliquis 5mg BID - continue metoprolol 12.5mg BID - continue atorvastatin 20mg daily - holding losartan 25mg daily given soft Bps (suspected to due GI losses) Assessment & Plan (05/31/2025 4:47 PM EDT): - continue Eliquis 5mg BID - continue metoprolol 12.5mg BID - continue atorvastatin 20mg daily - holding losartan 25mg daily given soft Bps (suspected to due GI losses) Assessment & Plan (05/30/2025 4:10 PM EDT): CHADS2 score is 2 Last echocardiogram without significant change, normal right and left ventricular size and function, ejection fraction is 58% Due to soft BP and dehydration, patient has been receiving IV fluids intermittently Orthostatic hypotension seem to be multifactorial neurogenic in nature however in addition to supine hypertension thought to be from autonomic dysfunction as well as exacerbated by polypharmacy Currently, will continue Eliquis 5 mg twice daily Has been draining HR, which is better controlled today, in low 100s Continue metoprolol to 12.5 mg twice daily (increased from a daily dose yesterday) Continue to hold home Aldactone, amiodarone and Farxiga for soft BP Continue lower extremity BRANDYN stockings slow movement upon awakening sitting for few seconds and then standing Would recommend elevate head of the bed = or < 30 degree during sleep to avoid supine hypertension Recommend keep K >or =4.0 and Mg >or=2.0 Strict I's and O's, daily weight. She should follow-up with acute care nurse practitioner as outpatient, to restart Aldactone, amiodarone and Farxiga Assessment & Plan (05/29/2025 1:04 PM EDT): CHADS2 score is 2 Last echocardiogram without significant change, normal right and left ventricular size and function, ejection fraction is 58% Due to soft BP and dehydration, patient has been receiving IV fluids intermittently Orthostatic hypotension seem to be multifactorial neurogenic in nature however in addition to supine hypertension thought to be from autonomic dysfunction as well as exacerbated by polypharmacy Currently, will continue Eliquis 5 mg twice daily Heart rate is elevated while patient is in therapy, increased metoprolol to 12.5 mg twice daily Continue to hold home Aldactone, amiodarone and Farxiga for soft BP Continue lower extremity BRANDYN stockings slow movement upon awakening sitting for few seconds and then standing Would recommend elevate head of the bed = or < 30 degree during sleep to avoid supine hypertension Recommend keep K >or =4.0 and Mg >or=2.0 Strict I's and O's, daily weight. She should follow-up with acute care nurse practitioner as outpatient, to restart Aldactone, amiodarone and Farxiga Assessment & Plan (05/28/2025 11:42 AM EDT): CHADS2 score is 2 Last echocardiogram without significant change, normal right and left ventricular size and function, ejection fraction is 58% patient has been receiving IV fluids due to dehydration Will follow-up with acute care nurse practitioner as outpatient, to restart Aldactone, amiodarone and Farxiga, anticoagulation for A-fib Currently, will continue Eliquis 5 mg twice daily Patient was noted to have orthostatic hypotension, holding metoprolol and losartan. Orthostatic hypotension seem to be multifactorial neurogenic in nature however in addition to supine hypertension thought to be from autonomic dysfunction as well as exacerbated by polypharmacy Continue lower extremity BRANDYN stockings slow movement upon awakening sitting for few seconds and then standing Would recommend elevate head of the bed = or < 30 degree during sleep to avoid supine hypertension Recommend keep K >or =4.0 and Mg >or=2.0 Strict I's and O's, daily weight. Assessment & Plan (05/27/2025 8:45 AM EDT): BP 94/66-110/76 HR 102-112 Echo 05/14: EF58% IVF bolus: 05/22, 05/24, 05/25, 05/26 - Losartan 25 mg on hold due to orthostatic hypotension -Continue metoprolol succinate 12.5 mg for rate control, previously was on 25 mg -Continue Eliquis 5 mg twice daily -Continue atorvastatin 20 mg daily - outpatient acute care nurse practitioner will need to address: AC for afib, re-starting amiodarone, restarting farxiga and spironolactone - yesterday received IVF for tachycardia and decreased po intake Assessment & Plan (05/26/2025 8:39 AM EDT): Echo 05/14: EF58% IVF bolus: 05/22, 05/24, 05/25 - Losartan 25 mg on hold due to orthostatic hypotension -Continue metoprolol succinate 12.5 mg for rate control, previously was on 25 mg -Continue Eliquis 5 mg twice daily -Continue atorvastatin 20 mg daily - outpatient acute care nurse practitioner will need to address: AC for afib, re-starting amiodarone, restarting farxiga and spironolactone Assessment & Plan (05/25/2025 11:08 AM EDT): Hypotension Echocardiogram (05/14/2025) EF 58 % 05/22: Status post LR bolus Monitor BP every shift and as needed with therapy 05/24:Patient has required 1L of IV fluids due to MARKIE and soft BP-BP and creatinine has been stable today Continue to hold losartan 25 mg due to orthostatic hypotension Continue metoprolol succinate 12.5 mg for rate control (was previously 25 mg) 05/25: Sinus tachycardia on EKG-plan to give additional dose of IV fluids 500 mL Continue Eliquis 12.5 mg BID Assessment & Plan (05/24/2025 1:59 PM EDT): Hypotension Echocardiogram (05/14/2025) EF 58 % 05/22: Status post LR bolus Monitor BP every shift and as needed with therapy Patient has required 1L of IV fluids yesterday due to MARKIE and soft BP-BP and creatinine has been stable today Continue to hold losartan 25 mg due to orthostatic hypotension Continue metoprolol succinate 12.5 mg for rate control (was previously 25 mg) Continue Eliquis 12.5 mg BID Assessment & Plan (05/23/2025 11:57 AM EDT): Hypotension Echocardiogram (05/14/2025) EF 58 % 05/22: Status post LR bolus Monitor BP every shift and as needed with therapy BP has been trending on the softer side plan to give normal saline 100 mL for 10 hours Continue to hold losartan 25 mg due to orthostatic hypotension Continue metoprolol succinate 12.5 mg for rate control (was previously 25 mg) Continue Eliquis 12.5 mg BID Assessment & Plan (05/22/2025 5:12 PM EDT): Echocardiogram (05/14/2025) EF 58 % Patient denies chest pain, palpitation lightheaded and dizziness. She was noted to be hypotensive today,( bp 83/ 52, 91/56, 107/55). Patient to receive 500 ml LR bolus. - continue to hold losartan 25 mg due to orthostatic hypotension - metoprolol succinate reduced from 25 mg to 12.5 mg -continue Eliquis 12.5 mg BID - please continue to trend BP Assessment & Plan (05/21/2025 6:47 AM EDT): Recent echo results from 05/14 reviewed by cardiology, with presumed stress cardiomyopathy. Ejection fraction improved to 58%. Recommending restarting metoprolol succinate and losartan. Advised to hold Jardiance to be restarted by outpatient acute care nurse practitioner. - Continue metoprolol 25 mg daily - Continue losartan 25 mg daily - Continue holding Jardiance and spironolactone Assessment & Plan (05/20/2025 12:03 PM EDT): Recent echo results from 05/14 reviewed by cardiology, with presumed stress cardiomyopathy. Ejection fraction improved to 58%. Recommending restarting metoprolol succinate and losartan. Advised to hold Jardiance to be restarted by outpatient acute care nurse practitioner. - Continue metoprolol 25 mg daily - Continue losartan 25 mg daily - Continue holding Jardiance and spironolactone Assessment & Plan (05/19/2025 6:40 AM EDT): Recent echo results from 05/14 reviewed by cardiology, with presumed stress cardiomyopathy. Ejection fraction improved to 58%. Recommending restarting metoprolol succinate and losartan. Advised to hold Jardiance to be restarted by outpatient acute care nurse practitioner. - Continue metoprolol 25 mg daily - Continue losartan 25 mg daily - Continue holding Jardiance and spironolactone Assessment & Plan (05/18/2025 6:47 AM EDT): Recent echo results from 05/14 reviewed by cardiology, with presumed stress cardiomyopathy. Ejection fraction improved to 58%. Recommending restarting metoprolol succinate and losartan. Advised to hold Jardiance to be restarted by outpatient acute care nurse practitioner. - Continue metoprolol 25 mg daily - Continue losartan 25 mg daily - Continue holding Jardiance and spironolactone Assessment & Plan (05/17/2025 2:37 PM EDT): Recent echo results from 05/14 reviewed by cardiology, with presumed stress cardiomyopathy. Ejection fraction improved to 58%. Recommending restarting metoprolol succinate and losartan. Advised to hold Jardiance to be restarted by outpatient acute care nurse practitioner. - Continue metoprolol 25 mg daily - Continue losartan 25 mg daily - Continue holding Jardiance and spironolactone Assessment & Plan (05/16/2025 7:39 AM EDT): Recent echo results from 05/14 reviewed by cardiology, with presumed stress cardiomyopathy. Ejection fraction improved to 58%. Recommending restarting metoprolol succinate and losartan. Advised to hold Jardiance to be restarted by outpatient acute care nurse practitioner. - Continue metoprolol 25 mg daily - Continue losartan 25 mg daily - Continue holding Jardiance and spironolactone Assessment & Plan (05/15/2025 2:08 PM EDT): Cardiology's recommendations were appreciated [05/14]. Recent echo results from 05/14 showed improved ejection fraction of 58%. Recommending restarting metoprolol succinate and losartan. Advised to hold Jardiance to be restarted by outpatient acute care nurse practitioner. Plan Recommends metoprolol Losartan 25 mg daily Continue hold on Jardiance and spironolactone Assessment & Plan (05/14/2025 4:48 PM EDT): Cardiology's recommendations were appreciated [05/14]. Recent echo results from 05/14 showed improved ejection fraction of 58%. Recommending restarting metoprolol succinate and losartan. Advised to hold Jardiance to be restarted by outpatient acute care nurse practitioner. 1. Discussed restarting metoprolol with attending 2. Continue to hold Jardiance Assessment & Plan (05/13/2025 1:45 PM EDT): Per chart review, given findings of echocardiogram at an outside hospital showing decreased left ventricular ejection fraction, there was suspicious of stress- induced cardiomyopathy. proBNP on admission 41,[id number]. - Repeat TTE, follow up on results - Cardiology consulted, appreciate recommendations - Increase spironolactone to 25 mg daily to help with hypokalemia, as per cardiology - No jardiance in setting of lactic acidosis, -Recommence Metoprolol Assessment & Plan (05/12/2025 4:13 PM EDT): Per chart review, given findings of echocardiogram at an outside hospital showing decreased left ventricular ejection fraction, there was suspicious of stress- induced cardiomyopathy. proBNP on admission 41,316. - Repeat TTE, follow up on results - Cardiology consulted, appreciate recommendations - Increase spironolactone to 25 mg daily to help with hypokalemia, as per cardiology - No jardiance in setting of lactic acidosis, no beta lokesh in order to not interfere with possible compensatory method in tachycardia Assessment & Plan (05/11/2025 2:04 PM EDT): Per chart review, given findings of echocardiogram at an outside hospital showing decreased left ventricular ejection fraction, there was suspicious of stress- induced cardiomyopathy. proBNP on admission 41,316. - Repeat TTE, follow up on results - Cardiology consulted, appreciate recommendations - Increase spironolactone to 25 mg daily to help with hypokalemia, as per cardiology - No jardiance in setting of lactic acidosis, no beta lokesh in order to not interfere with possible compensatory method in tachycardia Assessment & Plan (05/10/2025 1:40 PM EDT): Per chart review, given findings of echocardiogram at an outside hospital showing decreased left ventricular ejection fraction, there was suspicious of stress- induced cardiomyopathy. proBNP on admission 41,316. - Repeat TTE, follow up on results - Cardiology consulted, appreciate recommendations - Increase spironolactone to 25 mg daily to help with hypokalemia, as per cardiology Barriers to patient transition/ medical necessity requiring continued inpatient stay further management of the mentioned above. Assessment & Plan (05/09/2025 3:39 PM EDT): Per chart review, given findings of echocardiogram at an outside hospital showing decreased left ventricular ejection fraction, there was suspicious of stress- induced cardiomyopathy. proBNP on admission 41,316. - Repeat TTE, follow up on results - Cardiology consulted, appreciate recommendations - Continue Spironolactone as prescribed Concern for seizure-resolved 05/08/2025 Assessment & Plan (05/21/2025 6:47 AM EDT): Per chart review, the patient became aphasic on 05/06 for which a stroke code was called. CT head and MRI brain were all reportedly negative. Given patient continued to be altered, a routine EEG was performed which reportedly read concern for generalized epileptic discharges. Patient was started on keppra 750mg BID on 05/08. LTM EEG at did not show any seizures but revealed abundant GPD's with triphasic morphology favored to be secondary to encephalopathy. Her EEG then normalized over hospital course. We then discontinued keppra after a quick taper and EEG continued to remain normal for 24hrs after stopping keppra. Therefore, there is no indication for patient to be on anti-seizure medication as we do not think patient had GPDs at outside hospital and suspect it was triphasic waves in setting of encephalopathy. - Keppra discontinued on 05/15 as per neurology - No need for outpatient follow with neurology Assessment & Plan (05/20/2025 6:55 AM EDT): Per chart review, the patient became aphasic on 05/06 for which a stroke code was called. CT head and MRI brain were all reportedly negative. Given patient continued to be altered, a routine EEG was performed which reportedly read concern for generalized epileptic discharges. Patient was started on keppra 750mg BID on 05/08. LTM EEG at did not show any seizures but revealed abundant GPD's with triphasic morphology favored to be secondary to encephalopathy. Her EEG then normalized over hospital course. We then discontinued keppra after a quick taper and EEG continued to remain normal for 24hrs after stopping keppra. Therefore, there is no indication for patient to be on anti-seizure medication as we do not think patient had GPDs at outside hospital and suspect it was triphasic waves in setting of encephalopathy. - Keppra discontinued on 05/15 as per neurology - No need for outpatient follow with neurology Assessment & Plan (05/19/2025 6:40 AM EDT): Per chart review, the patient became aphasic on 05/06 for which a stroke code was called. CT head and MRI brain were all reportedly negative. Given patient continued to be altered, a routine EEG was performed which reportedly read concern for generalized epileptic discharges. Patient was started on keppra 750mg BID on 05/08. LTM EEG at did not show any seizures but revealed abundant GPD's with triphasic morphology favored to be secondary to encephalopathy. Her EEG then normalized over hospital course. We then discontinued keppra after a quick taper and EEG continued to remain normal for 24hrs after stopping keppra. Therefore, there is no indication for patient to be on anti-seizure medication as we do not think patient had GPDs at outside hospital and suspect it was triphasic waves in setting of encephalopathy. - Keppra discontinued on 05/15 as per neurology - No need for outpatient follow with neurology Assessment & Plan (05/18/2025 12:10 PM EDT): Per chart review, the patient became aphasic on 05/06 for which a stroke code was called. CT head and MRI brain were all reportedly negative. Given patient continued to be altered, a routine EEG was performed which reportedly read concern for generalized epileptic discharges. Patient was started on keppra 750mg BID on 05/08. LTM EEG at did not show any seizures but revealed abundant GPD's with triphasic morphology favored to be secondary to encephalopathy. Her EEG then normalized over hospital course. We then discontinued keppra after a quick taper and EEG continued to remain normal for 24hrs after stopping keppra. Therefore, there is no indication for patient to be on anti-seizure medication as we do not think patient had GPDs at outside hospital and suspect it was triphasic waves in setting of encephalopathy. - Keppra discontinued on 05/15 as per neurology - No need for outpatient follow with neurology Assessment & Plan (05/17/2025 2:37 PM EDT): Per chart review, the patient became aphasic on 05/06 for which a stroke code was called. CT head and MRI brain were all reportedly negative. Given patient continued to be altered, a routine EEG was performed which reportedly read concern for generalized epileptic discharges. Patient was started on keppra 750mg BID on 05/08. LTM EEG at did not show any seizures but revealed abundant GPD's with triphasic morphology favored to be secondary to encephalopathy. Her EEG then normalized over hospital course. We then discontinued keppra after a quick taper and EEG continued to remain normal for 24hrs after stopping keppra. Therefore, there is no indication for patient to be on anti-seizure medication as we do not think patient had GPDs at outside hospital and suspect it was triphasic waves in setting of encephalopathy. - Keppra discontinued on 05/15 as per neurology - Does not need to follow with neurology on outpatient Assessment & Plan (05/16/2025 7:39 AM EDT): Per chart review, the patient became aphasic on 05/06 for which a stroke code was called. CT head and MRI brain were all reportedly negative. Given patient continued to be altered, a routine EEG was performed which reportedly read concern for generalized epileptic discharges. Patient was started on keppra 750mg BID on 05/08. LTM EEG at did not show any seizures but revealed abundant GPD's with triphasic morphology favored to be secondary to encephalopathy. Her EEG then normalized over hospital course. We then discontinued keppra after a quick taper and EEG continued to remain normal for 24hrs after stopping keppra. Therefore, there is no indication for patient to be on anti-seizure medication as we do not think patient had GPDs at outside hospital and suspect it was triphasic waves in setting of encephalopathy. - Keppra discontinued on 05/15 as per neurology - Does not need to follow with neurology on outpatient Assessment & Plan (05/15/2025 2:08 PM EDT): LTM results: DAILY IMPRESSIONS Monitoring Day 1: 05/09/2025. Moderate encephalopathy. Abundant GPD's with triphasic morphology was present. No seizures Monitoring Day 2: 05/10/2025 - Nonspecific, mild to moderate encephalopathy. The discharges with a triphasic morphology could be a nonspecific marker of encephalopathy or confer an increased risk of focal- or generalized-onset seizures. Their lag and relative suppression in the unstimulated state suggested the former. Monitoring Day 3: 05/11/2025 - Nonspecific, mild encephalopathy. Monitoring Day 4: 05/12/2025 - Normal interictal. Monitoring Day 5: 05/13/2025 - Normal interictal. Monitoring Day 6: 05/14/2025 - Normal interictal. Monitoring Day 7: 05/15/2025 - Normal interictal. Patient's recent LTM shows no signs of encephalopathy. Patient has been discontinued on Keppra and is also being followed by neurology with LTM set to be discontinued today. PLAN 1. Follow up with Neurology on PLAN 2. Step down to Floors. Assessment & Plan (05/14/2025 4:48 PM EDT): LTM has remained WNL for the last 48 hrs DAILY IMPRESSIONS Monitoring Day 1: 05/09/2025. Moderate encephalopathy. Abundant GPD's with triphasic morphology was present. No seizures Monitoring Day 2: 05/10/2025 - Nonspecific, mild to moderate encephalopathy. The discharges with a triphasic morphology could be a nonspecific marker of encephalopathy or confer an increased risk of focal- or generalized-onset seizures. Their lag and relative suppression in the unstimulated state suggested the former. Monitoring Day 3: 05/11/2025 - Nonspecific, mild encephalopathy. Monitoring Day 4: 05/12/2025 - Normal interictal. Monitoring Day 5: 05/13/2025 - Normal interictal Keppra was discontinued today. LTM set to be discontinued tomorrow. PLAN Continue with neurology follow-up. Assessment & Plan (05/13/2025 3:16 PM EDT): The patient has been placed on LTM monitoring: DAILY IMPRESSIONS Monitoring Day 1: 05/09/2025. Moderate encephalopathy. Abundant GPD's with triphasic morphology was present. No seizures Monitoring Day 2: 05/10/2025 - Nonspecific, mild to moderate encephalopathy. The discharges with a triphasic morphology could be a nonspecific marker of encephalopathy or confer an increased risk of focal- or generalized-onset seizures. Their lag and relative suppression in the unstimulated state suggested the former. Monitoring Day 3: 05/11/2025 - Nonspecific, mild encephalopathy. Monitoring Day 4: 05/12/2025 - Normal interictal. MRI done 05/12 revealed no evidence of an acute infarct, hemorrhage, or mass. There is no abnormal parenchymal or meningeal enhancement. Discussed with Neurology resident and updated recommendations. PLAN Continue Keppra 500 mg tonight then 500 mg am, then stop. Follow up on Neurology review of LTM. Assessment & Plan (05/12/2025 5:04 PM EDT): Patient seems to be oriented x 3 at baseline as per family. At OSH on 05/07 pt received stroke alert for aphasia, MRI brain and CT head were unremarkable at the time. At OSH, course was further complicated by AMS with concern for new onset seizures, transferred to for continuous LTM monitoring. DAILY IMPRESSIONS Monitoring Day 1: 05/09/2025. Moderate encephalopathy. Abundant GPD's with triphasic morphology was present. No seizures Monitoring Day 2: 05/10/2025 - Nonspecific, mild to moderate encephalopathy. The discharges with a triphasic morphology could be a nonspecific marker of encephalopathy or confer an increased risk of focal- or generalized-onset seizures. Their lag and relative suppression in the unstimulated state suggested the former. Monitoring Day 3: 05/11/2025 - Nonspecific, mild encephalopathy. Monitoring Day 4: 05/12/2025 - Normal interictal. MRI reviewed today revealed no evidence of an acute infarct, hemorrhage, or mass. There is no abnormal parenchymal or meningeal enhancement. - Continue Keppra 1000 mg BID Assessment & Plan (05/11/2025 2:04 PM EDT): Altered mental status Seizure activity Patient seems to be oriented x 3 at baseline as per family. At OSH on 05/07 pt received stroke alert for aphasia, MRI brain and CT head were unremarkable at the time. At OSH, course was further complicated by AMS with concern for new onset seizures, transferred to for continuous LTM monitoring. LTM on 05/09 (day 1) update at 5:20 am showed moderate encephalopathy. Abundant GPD's with triphasic morphology present. No seizures. Day 2: No notable ECG abnormalities were apparent. - Continue Keppra 1000 mg BID - Brain MRI with contrast ordered, still not obtained - Neurology consulted, appreciate recommendations Assessment & Plan (05/10/2025 1:40 PM EDT): Altered mental status Seizure activity Patient seems to be oriented x 3 at baseline as per family. At OSH on 05/07 pt received stroke alert for aphasia, MRI brain and CT head were unremarkable at the time. At OSH, course was further complicated by AMS with concern for new onset seizures, transferred to for continuous LTM monitoring. - LTM on 05/09 (day 1) update at 5:20 am showed moderate encephalopathy. Abundant GPD's with triphasic morphology present. No seizures. Day 2: No notable ECG abnormalities were apparent. - Continue Keppra 1000 mg BID - Brain MRI with contrast, follow up - Neurology consulted, appreciate recommendations Assessment & Plan (05/09/2025 3:39 PM EDT): Altered mental status Seizure activity Patient seems to be oriented x 3 at baseline as per family. At OSH on 05/07 pt received stroke alert for aphasia, MRI brain and CT head were unremarkable at the time. At OSH, course was further complicated by AMS with concern for new onset seizures, transferred to for continuous LTM monitoring. - LTM on 05/09 (day 1) update at 5:20 am showed moderate encephalopathy. Abundant GPD's with triphasic morphology present. No seizures. - Continue Keppra 1000 mg BID - Brain MRI with contrast, follow up - Neurology consulted, appreciate recommendations Encounters Date Type Department Care Team Description 06/06/2025 Orders Only INPATIENT REHAB [address] [place] [id number] Astrid Marsh PA-C Intra-abdominal abscess (HCC) 05/21/2025 4:07 PM EDT - 06/03/2025 11:37 AM EDT Hospital Encounter INPATIENT REHAB [address] [place] [address] Jhony Laird MD Starrett, Garrison J, Intra-abdominal abscess (HCC) (Primary Dx); Atrial fibrillation, unspecified type (HCC); Stress-induced cardiomyopathy; Allergic rhinitis, unspecified seasonality, unspecified trigger; Anxiety; Nutritional deficiency; Primary osteoarthritis of both knees; Colostomy complication (HCC); Primary insomnia Discharge Disposition: Home with Health Care Services 05/21/2025 Travel 05/15/2025 Travel 05/09/2025 Travel 05/08/2025 9:09 PM EDT - 05/21/2025 3:54 PM EDT Hospital Encounter [facility] [address] [place] [address] Hector, MD Moris Santana Anat, MD Vergara, Cunegundo, MD Castiglione, Andrew, MD McClure, Mitchell H, MD Anxiety (Primary Dx); Septic shock-resolved; Stress-induced cardiomyopathy; Nutritional deficiency; Pericarditis, unspecified chronicity, unspecified type; Intra-abdominal abscess (HCC); Allergic rhinitis, unspecified seasonality, unspecified trigger; Atrial fibrillation, unspecified type (HCC) Discharge Disposition: Inpatient Rehab Facility 05/08/2025 7:10 PM EDT Ancillary Procedure [facility] [address] [place] [address] Provider, File Room 05/08/2025 7:05 PM EDT Ancillary Procedure [facility] [address] [place] [phone] Provider, File Room 05/08/2025 7:00 PM EDT Ancillary Procedure [facility] [address] [place] [address] Provider, File Room 05/08/2025 7:00 PM EDT Ancillary Procedure [facility] [address] [place] [phone] Provider, File Room 05/06/2025 Orders Only [facility] [address] [place] [id number] Provider, File Room from Last 3 Months Social History Tobacco Use Types Packs/Day Years Used Date Smoking Tobacco: Former Cigarettes Smokeless Tobacco: Never Tobacco Cessation:Counseling Given: No Alcohol Use Standard Drinks/Week Comments Never 0 (1 standard drink = 0.6 oz pur e alcohol) [facility] Utilities Answer Date Recorded In the past 12 months has [employer], [employer], or water [employer] threatened to shut off services in your [...] any time in the past 12 [facility], were you homeless or living in a longterm (including now)? No 05/10/2025 Comments Unknown Sex and Gender Information Value Date Recorded Sex Assigned at Female 05/08/2025 9:25 PM EDT Legal Sex Female 4:33 PM EDT Gender Identity Female 05/08/2025 9:25 PM EDT Sexual Orientation Heterosexual (straight) 05/08 9:25 PM EDT Last Filed Vital Signs Vital Sign Reading Time Taken Comments Blood Pressure 110/74 06/03/2025 8:45 AM EDT Pulse 66 06/03/2025 8:45 AM EDT Temperature 36.2 C (97.1 F) 06/03/2025 6:30 AM EDT Respiratory Rate 20 06/03/2025 6:30 AM EDT Oxygen Saturation 99% 06/03/2025 6:30 AM EDT Inhaled Oxygen Concentration - - Weight 48.8 kg (107 lb 9.4 oz) 05/21/2025 4:52 P M EDT Height 157.5 cm (5' 2 ) 05/21/2025 4:52 PM EDT Body Mass Index 19.68 05/21/2025 4:52 PM EDT Plan of Treatment Health Maintenance Due Date Last Done Comments Advance Care Planning 1960 Hepatitis C Virus Screening 1959 Chronic Controlled Substance Toxicology Screening 1977 Chronic Controlled Substance User PDMP Review 1977 Controlled Substance Agreement Initial and Annual Review 1977 DTaP/Tdap/Td Vaccines (1 - Tdap) 1978 Pneumococcal Vaccines 50+ (1 of 2 - PCV) 1978 Mammogram 1999 Colonoscopy 02/07/2004 Zoster (Shingles) Vaccine (1 of 2) 2009 RSV Vaccine 60 years and older and Patients (1 - Risk 60-74 years 1-dose series) 2019 DXA Bone Density (Females,Ages 65 and older) 02/07/2024 Influenza Vaccine 04/04/2025 06/01/2024, , 06/28/2022, Additional history exists COVID-19 Vaccine ( season) 2025 06/30/2024, 10/01/2023, 07/10/2021, Additional history exists Hepatitis B Vaccines Aged Out No long er eligible based on patient's age to complete this topic Procedures Procedure Name Priority Date/Time Associated Diagnosis Comments LIPASE Routine 06/03/2025 6:08 AM EDT MAGNESIUM Routine 06/03/2025 6:08 AM EDT COMPREHENSIVE METABOLIC PANEL Routine 06/03/2025 6:08 AM EDT COMPLETE BLOOD COUNT, WITHOUT DIFFERENTIAL Routine 06/03/2025 6:08 AM EDT ECG 12-LEAD Routine 06/02/2025 10:24 AM EDT LACTIC ACID, PLASMA Routine 06/02/2025 7 :45 AM EDT MAGNESIUM Routine 06/02/2025 5:18 AM EDT COMPREHENSIVE METABOLIC PANEL Routine 06/02/2025 5:18 AM EDT COMPLETE BLOOD COUNT, WITH DIFFERENTIAL Routine 06/02/2025 5:18 AM EDT ECG 12-LEAD STAT 06/01/2025 10:[address] ABDOMEN+PELVIS W/CONTRAST Routine 06/01/2025 2:25 PM EDT COMPREHENSIVE METABOLIC PANEL Routine 06/01/2025 11:45 AM EDT COMPLETE BLOOD COUNT, WITHOUT DIFFERENTIAL Routine 06/01/2025 11:45 AM EDT LIPASE Routine 06/01/2025 11:45 AM EDT MAGNESIUM Routine 06/01/2025 5:30 AM EDT BASIC METABOLIC PANEL Routine 06/01/2025 5:30 AM EDT MAGNESIUM Routine 05/31/2025 9:00 PM EDT ECG 12-LEAD Routine 05/31/2025 1:11 PM EDT MAGNESIUM Routine 05/31/2025 12:38 PM EDT BASIC METABOLIC PANEL Routine 05/31/2025 12:38 PM EDT COMPLETE BLOOD COUNT, WITHOUT DIFFERENTIAL Routine 05/31/2025 12:38 PM EDT ECG 12-LEAD Routine 05/31/2025 11:24 AM EDT XR KNEE 3 VIEWS-BILATERAL Routine 05/28/2025 4:06 PM EDT PHOSPHORUS Routine 05/27/2025 6:20 AM EDT MAGNESIUM Routine 05/27/2025 6:20 AM EDT BASIC METABOLIC PANEL Routine 05/27/2025 6:20 AM EDT PHOSPHORUS Routine 05/26/2025 6:10 AM EDT MAGNESIUM Routine 05/26/2025 6:10 AM EDT COMPREHENSIVE METABOLIC PANEL Routine 05/26/2025 6:10 AM EDT COMPLETE BLOOD COUNT, WITH DIFFERENTIAL Routine 05/26/2025 6:10 AM EDT OSMOLALITY, URINE Routine 05/25/2025 2:5 2 PM EDT SODIUM, URINE, RANDOM Routine 05/25/2025 2:52 PM EDT ECG 12-LEAD Routine 05/24/2025 9:18 AM EDT MAGNESIUM Routine 05/24/2025 5:13 AM EDT RENAL FUNCTION PANEL Routine 05/24/2025 5:13 AM EDT ECG 12-LEAD Routine 05/23/2025 9:43 AM EDT MAGNESIUM Routine 05/23/2025 6:33 AM EDT BASIC METABOLIC PANEL Routine 05/23/2025 6:33 AM EDT COMPLETE BLOOD COUNT, WITHOUT DIFFERENTIAL Routine 05/23/2025 6:33 AM EDT MAGNESIUM Routine 05/22/2025 8:20 PM EDT ECG 12-LEAD Routine 05/22/2025 9:00 AM EDT MAGNESIUM Routine 05/22/2025 6:00 AM EDT COMPLETE BLOOD COUNT, WITH DIFFERENTIAL Routine 05/22/2025 6:00 AM EDT BASIC METABOLIC PANEL Routine 05/22/2025 6:00 AM EDT ECG 12-LEAD STAT 05/21/2025 11:18 AM EDT ECG 12-LEAD Routine 05/21/2025 8:50 AM EDT BASIC METABOLIC PANEL Routine 05/21/2025 5:40 AM EDT COMPLETE BLOOD COUNT, WITHOUT DIFFERENTIAL Routine 05/21/2025 5:40 AM EDT BASIC METABOLIC PANEL Routine 05/20/2025 6:00 AM EDT COMPLETE BLOOD COUNT, WITHOUT DIFFERENTIAL Routine 05/20/2025 6:00 AM EDT ECG 12-LEAD Routine 05/19/2025 9:40 AM EDT BASIC METABOLIC PANEL Routine 05/19/2025 6:45 AM EDT COMPLETE BLOOD COUNT, WITHOUT DIFFERENTIAL Routine 05/19/2025 6:45 AM EDT ECG 12-LEAD Routine 05/18/2025 12:02 PM EDT COMPREHENSIVE METABOLIC PANEL Routine 05/18/2025 9:26 AM EDT COMPLETE BLOOD COUNT, WITHOUT DIFFERENTIAL Routine 05/18/2025 9:26 AM EDT ECG 12-LEAD Routine 05/17/2025 2:31 PM EDT PROTEIN, TOTAL Routine 05/17/2025 5:09 AM EDT LACTATE DEHYDROGENASE (LDH) Routine 05/17/2025 5:09 AM EDT PARTIAL THROMBOPLASTIN TIME (PTT) Routine 05/17/2025 5:09 AM EDT HIGH SENSITIVITY D-DIMER Routine 05/17/2025 5:09 AM EDT PROTIME-INR Routine 05/17/2025 5:09 AM EDT FIBRINOGEN LEVEL Routine 05/17/2025 5:09 AM EDT PHOSPHORUS Routine 05/17/2025 5:09 AM EDT MAGNESIUM Routine 05/17/2025 5:09 AM EDT COMPLETE BLOOD COUNT, WITHOUT DIFFERENTIAL Routine 05/17/2025 5:09 AM EDT BASIC METABOLIC PANEL Routine 05/17/2025 5:09 AM EDT ECG 12-LEAD Routine 05/16/2025 8:29 PM EDT THORACENTESIS Routine 05/16/2025 3:58 PM EDT US GUIDED BEDSIDE THORACENTESIS-BILATERAL Routine 05/16/2025 3:53 PM EDT PROTEIN, BODY FLUID Routine 05/16/2025 3 :35 PM EDT LACTATE DEHYDROGENASE (LDH), BODY FLUID Routine 05/16/2025 3:35 PM EDT GLUCOSE, BODY FLUID Routine 05/16/2025 3 :35 PM EDT CELL COUNT REFLEX DIFFERENTIAL, BODY FLUID Routine 05/16/2025 3:35 PM EDT BODY FLUID CULTURE (AEROBIC, ANAEROBIC AND GRAM STAIN) Routine 05/16/2025 3:35 PM EDT HIGH SENSITIVITY D-DIMER Routine 05/16/2025 10:00 AM EDT FIBRINOGEN LEVEL Routine 05/16/2025 10:0 0 AM EDT THROMBIN TIME Routine 05/16/2025 10:00 AM EDT PARTIAL THROMBOPLASTIN TIME (PTT) Routine 05/16/2025 10:00 AM EDT PROTIME-INR Routine 05/16/2025 10:00 AM EDT COMPLETE BLOOD COUNT, WITHOUT DIFFERENTIAL Routine 05/16/2025 10:00 AM EDT PHOSPHORUS Routine 05/16/2025 10:00 AM EDT MAGNESIUM Routine 05/16/2025 10:00 AM EDT BASIC METABOLIC PANEL Routine 05/16/2025 10:00 AM EDT EEG LONG-TERM MONITORING Routine 05/15/2025 8:22 AM EDT C-REACTIVE PROTEIN Routine 05/15/2025 5: 48 AM EDT PHOSPHORUS Routine 05/15/2025 5:48 AM EDT HIGH SENSITIVITY D-DIMER Routine 05/15/2025 5:48 AM EDT FIBRINOGEN LEVEL Routine 05/15/2025 5:48 AM EDT THROMBIN TIME Routine 05/15/2025 5:48 AM EDT PARTIAL THROMBOPLASTIN TIME (PTT) Routine 05/15/2025 5:48 AM EDT PROTIME-INR Routine 05/15/2025 5:48 AM EDT COMPREHENSIVE METABOLIC PANEL Routine 05/15/2025 5:48 AM EDT COMPLETE BLOOD COUNT, WITH DIFFERENTIAL Routine 05/15/2025 5:48 AM EDT EEG LONG-TERM MONITORING Routine 05/15/2025 4:45 AM EDT COMPLETE BLOOD COUNT, WITHOUT DIFFERENTIAL Routine 05/14/2025 3:21 PM EDT TRANSFUSE RED BLOOD CELLS Routine 05/14/2025 11:[address] ABDOMEN+PELVIS W/CONTRAST Routine 05/14/2025 11:15 AM EDT PHOSPHORUS Routine 05/14/2025 10:38 AM EDT MAGNESIUM Routine 05/14/2025 10:38 AM EDT BASIC METABOLIC PANEL Routine 05/14/2025 10:38 AM EDT ECHOCARDIOGRAM (TTE) COMPREHENSIVE (CONTRAST PRN) Routine 05/14/2025 9:07 AM EDT PREPARE RBC'S Routine 05/14/2025 6:58 AM EDT ECG 12-LEAD Routine 05/14/2025 6:29 AM EDT DIFFERENTIAL, AUTOMATED (ADD ON ONLY) Routine 05/14/2025 6:20 AM EDT HIGH SENSITIVITY D-DIMER Routine 05/14/2025 6:20 AM EDT FIBRINOGEN LEVEL Routine 05/14/2025 6:20 AM EDT PROTIME-INR Routine 05/14/2025 6:20 AM EDT PARTIAL THROMBOPLASTIN TIME (PTT) Routine 05/14/2025 6:20 AM EDT COMPLETE BLOOD COUNT, WITHOUT DIFFERENTIAL Routine 05/14/2025 6:20 AM EDT TRIGLYCERIDES Routine 05/14/2025 6:20 AM EDT FERRITIN Routine 05/14/2025 6:20 AM EDT POCT GLUCOSE, FINGERSTICK (CHARGE) Routine 05/13/2025 8:06 PM EDT EEG LONG-TERM MONITORING Routine 05/13/2025 7:08 PM EDT COMPLETE BLOOD COUNT, WITHOUT DIFFERENTIAL Routine 05/13/2025 5:30 PM EDT POCT GLUCOSE, FINGERSTICK (CHARGE) Routine 05/13/2025 4:27 PM EDT TRANSFUSE PLATELETS Routine 05/13/2025 1 :09 PM EDT POCT GLUCOSE, FINGERSTICK (CHARGE) Routine 05/13/2025 11:50 AM EDT TYPE AND SCREEN Routine 05/13/2025 8:15 AM EDT POCT GLUCOSE, FINGERSTICK (CHARGE) Routine 05/13/2025 7:56 AM EDT PREPARE PLATELETS Routine 05/13/2025 7:3 2 AM EDT EEG LONG-TERM MONITORING Routine 05/13/2025 6:31 AM EDT ABO CONFIRMATION Routine 05/13/2025 4:49 AM EDT HEPATIC FUNCTION PANEL Routine 4:49 AM EDT THROMBIN TIME Routine 05/13/2025 4:49 AM EDT PROTIME-INR Routine 05/13/2025 4:49 AM EDT HIGH SENSITIVITY D-DIMER Routine 05/13/2025 4:49 AM EDT FIBRINOGEN LEVEL Routine 05/13/2025 4:49 AM EDT PHOSPHORUS Routine 05/13/2025 4:49 AM EDT MAGNESIUM Routine 05/13/2025 4:49 AM EDT BASIC METABOLIC PANEL Routine 05/13/2025 4:49 AM EDT COMPLETE BLOOD COUNT, WITHOUT DIFFERENTIAL Routine 05/13/2025 4:49 AM EDT POCT GLUCOSE, FINGERSTICK (CHARGE) Routine 05/13/2025 4:25 AM EDT POCT GLUCOSE, FINGERSTICK (CHARGE) Routine 05/13/2025 12:18 AM EDT PHOSPHORUS Routine 05/12/2025 8:24 PM EDT MAGNESIUM Routine 05/12/2025 8:24 PM EDT BASIC METABOLIC PANEL Routine 05/12/2025 8:24 PM EDT POCT GLUCOSE, FINGERSTICK (CHARGE) Routine 05/12/2025 7:40 PM EDT POCT GLUCOSE, FINGERSTICK (CHARGE) Routine 05/12/2025 3:51 PM EDT MRI BRAIN W W/O CONTRAST STAT 05/12/2025 2:49 PM EDT POCT GLUCOSE, FINGERSTICK (CHARGE) Routine 05/12/2025 11:59 AM EDT POCT GLUCOSE, FINGERSTICK (CHARGE) Routine 05/12/2025 8:40 AM EDT POCT GLUCOSE, FINGERSTICK (CHARGE) Routine 05/12/2025 8:24 AM EDT LACTIC ACID, PLASMA Routine 05/12/2025 6 :17 AM EDT PHOSPHORUS Routine 05/12/2025 6:17 AM EDT MAGNESIUM Routine 05/12/2025 6:17 AM EDT COMPREHENSIVE METABOLIC PANEL Routine 05/12/2025 6:17 AM EDT COMPLETE BLOOD COUNT, WITH DIFFERENTIAL Routine 05/12/2025 6:17 AM EDT PROTIME-INR Routine 05/12/2025 6:17 AM EDT PARTIAL THROMBOPLASTIN TIME (PTT) Routine 05/12/2025 6:17 AM EDT THROMBIN TIME Routine 05/12/2025 6:17 AM EDT FIBRINOGEN LEVEL Routine 05/12/2025 6:17 AM EDT HIGH SENSITIVITY D-DIMER Routine 05/12/2025 6:17 AM EDT POCT GLUCOSE, FINGERSTICK (CHARGE) Routine 05/12/2025 4:18 AM EDT BASIC METABOLIC PANEL Routine 05/12/2025 12:35 AM EDT MAGNESIUM Routine 05/12/2025 12:35 AM EDT PHOSPHORUS Routine 05/12/2025 12:35 AM EDT POCT GLUCOSE, FINGERSTICK (CHARGE) Routine 05/12/2025 12:31 AM EDT LACTIC ACID, PLASMA Routine 05/11/2025 8 :31 PM EDT POCT GLUCOSE, FINGERSTICK (CHARGE) Routine 05/11/2025 7:54 PM EDT POCT GLUCOSE, FINGERSTICK (CHARGE) Routine 05/11/2025 4:21 PM EDT EEG LONG-TERM MONITORING Routine 05/11/2025 3:26 PM EDT LACTIC ACID, PLASMA Routine 05/11/2025 2 :20 PM EDT POCT GLUCOSE, FINGERSTICK (CHARGE) Routine 05/11/2025 12:35 PM EDT XR ABDOMEN 1 VIEW STAT 05/11/2025 9:5 9 AM EDT POCT GLUCOSE, FINGERSTICK (CHARGE) Routine 05/11/2025 8:27 AM EDT LACTIC ACID, PLASMA Routine 05/11/2025 6 :11 AM EDT HIGH SENSITIVITY D-DIMER Routine 05/11/2025 6:11 AM EDT FIBRINOGEN LEVEL Routine 05/11/2025 6:11 AM EDT THROMBIN TIME Routine 05/11/2025 6:11 AM EDT PARTIAL THROMBOPLASTIN TIME (PTT) Routine 05/11/2025 6:11 AM EDT PROTIME-INR Routine 05/11/2025 6:11 AM EDT BASIC METABOLIC PANEL Routine 05/11/2025 6:11 AM EDT COMPLETE BLOOD COUNT, WITHOUT DIFFERENTIAL Routine 05/11/2025 6:11 AM EDT POCT GLUCOSE, FINGERSTICK (CHARGE) Routine 05/11/2025 4:03 AM EDT EEG LONG-TERM MONITORING Routine 05/11/2025 1:39 AM EDT LACTIC ACID, PLASMA Routine 05/11/2025 1 2:55 AM EDT POCT GLUCOSE, FINGERSTICK (CHARGE) Routine 05/10/2025 11:56 PM EDT LACTIC ACID, PLASMA Routine 05/10/2025 8 :10 PM EDT TRANSFERRIN Routine 05/10/2025 8:10 PM EDT POCT GLUCOSE, FINGERSTICK (CHARGE) Routine 05/10/2025 8:04 PM EDT POCT GLUCOSE, FINGERSTICK (CHARGE) Routine 05/10/2025 4:30 PM EDT POCT GLUCOSE, FINGERSTICK (CHARGE) Routine 05/10/2025 2:38 PM EDT XR ABDOMEN 1 VIEW Routine 05/10/2025 2:1 5 PM EDT FEEDING TUBE PLACEMENT (NASODUODENAL/NASOJEJUN AL) Routine 05/10/2025 1:17 PM EDT POCT GLUCOSE, FINGERSTICK (CHARGE) Routine 05/10/2025 12:31 PM EDT LACTIC ACID, PLASMA Routine 05/10/2025 1 2:20 PM EDT POCT GLUCOSE, FINGERSTICK (CHARGE) Routine 05/10/2025 8:53 AM EDT POCT GLUCOSE, FINGERSTICK (CHARGE) Routine 05/10/2025 7:47 AM EDT POCT GLUCOSE, FINGERSTICK (CHARGE) Routine 05/10/2025 7:00 AM EDT US ABDOMEN-LIMITED Routine 05/10/2025 6: 54 AM EDT PATHOLOGY SMEAR REVIEW, WHOLE BLOOD Routine 05/10/2025 6:20 AM EDT COMPLETE BLOOD COUNT, WITHOUT DIFFERENTIAL Routine 05/10/2025 6:20 AM EDT BASIC METABOLIC PANEL Routine 05/10/2025 6:20 AM EDT POCT GLUCOSE, FINGERSTICK (CHARGE) Routine 05/10/2025 4:21 AM EDT POCT GLUCOSE, FINGERSTICK (CHARGE) Routine 05/10/2025 4:00 AM EDT EEG LONG-TERM MONITORING Routine 05/10/2025 3:58 AM EDT BASIC METABOLIC PANEL Routine 05/10/2025 2:10 AM EDT LACTIC ACID, PLASMA Routine 05/10/2025 2 :10 AM EDT POCT GLUCOSE, FINGERSTICK (CHARGE) Routine 05/10/2025 1:12 AM EDT POCT GLUCOSE, FINGERSTICK (CHARGE) Routine 05/09/2025 11:58 PM EDT POCT GLUCOSE, FINGERSTICK (CHARGE) Routine 05/09/2025 7:32 PM EDT POCT GLUCOSE, FINGERSTICK (CHARGE) Routine 05/09/2025 5:49 PM EDT VITAMIN B12 Routine 05/09/2025 5:45 PM EDT FOLATE LEVEL Routine 05/09/2025 5:45 PM EDT PREALBUMIN Routine 05/09/2025 5:45 PM EDT BASIC METABOLIC PANEL Routine 05/09/2025 5:45 PM EDT LACTIC ACID, PLASMA Routine 05/09/2025 5 :45 PM EDT LACTIC ACID, PLASMA Routine 05/09/2025 2 :40 PM EDT BASIC METABOLIC PANEL Routine 05/09/2025 1:00 PM EDT POCT GLUCOSE, FINGERSTICK (CHARGE) Routine 05/09/2025 12:02 PM EDT BLOOD CULTURE (HOSP LAB) Routine 05/09/2025 10:23 AM EDT PROCALCITONIN Routine 05/09/2025 10:20 AM EDT LACTIC ACID, PLASMA Routine 05/09/2025 1 0:20 AM EDT NASAL MRSA SCREEN, PCR Routine 10:20 AM EDT BLOOD CULTURE (HOSP LAB) Routine 05/09/2025 10:15 AM EDT HAPTOGLOBIN Routine 05/09/2025 9:10 AM EDT HEPARIN PF4 AB SCREEN REFLEX SEROTONIN RELEASE ASSAY HITAB Routine 05/09/2025 9:10 AM EDT POCT GLUCOSE, FINGERSTICK (CHARGE) Routine 05/09/2025 8:48 AM EDT MAGNESIUM Routine 05/09/2025 6:18 AM EDT LACTIC ACID, PLASMA Routine 05/09/2025 6 :18 AM EDT BASIC METABOLIC PANEL Routine 05/09/2025 5:00 AM EDT COMPLETE BLOOD COUNT, WITH DIFFERENTIAL Routine 05/09/2025 5:00 AM EDT PROTIME-INR Routine 05/09/2025 3:00 AM EDT PARTIAL THROMBOPLASTIN TIME (PTT) Routine 05/09/2025 3:00 AM EDT FIBRINOGEN LEVEL Routine 05/09/2025 3:00 AM EDT LACTATE DEHYDROGENASE (LDH) Routine 05/09/2025 3:00 AM EDT PROBNP, N-TERMINAL Routine 05/09/2025 3: 00 AM EDT LACTIC ACID, PLASMA Routine 05/09/2025 3 :00 AM EDT CTA CHEST FOR P.E. STAT 05/09/2025 2: 26 AM EDT CTA ABDOMEN+PELVIS W W/O CONTRAST STAT 05/09/2025 2:26 AM EDT ECG 12-LEAD Routine 05/09/2025 12:59 AM EDT PROLACTIN Routine 05/08/2025 11:57 PM EDT HEPATIC FUNCTION PANEL Routine 11:57 PM EDT BLOOD GAS, VENOUS Routine 05/08/2025 11: 57 PM EDT LACTIC ACID, PLASMA Routine 05/08/2025 1 0:09 PM EDT MAGNESIUM Routine 05/08/2025 10:09 PM EDT BASIC METABOLIC PANEL Routine 05/08/2025 10:09 PM EDT COMPLETE BLOOD COUNT, WITHOUT DIFFERENTIAL Routine 05/08/2025 10:[address] HEAD ARCHIVE FOR REFERENCE ONLY Routine 05/08/2025 6:[address] HEAD ARCHIVE FOR REFERENCE ONLY Routine 05/08/2025 6:[address] HEAD ARCHIVE FOR REFERENCE ONLY Routine 05/08/2025 6:58 PM EDT MR HEAD ARCHIVE FOR REFERENCE ONLY Routine 05/08/2025 6:57 PM EDT from Last 3 Months Results * (ABNORMAL) COMPLETE BLOOD COUNT, WITHOUT DIFFERENTIAL (06/03/2025 6:08 AM EDT) Only the most recent of17 resultswithin the time period is included. White Blood Cell Count 7.7 4.0 - 11.0 Thou/uL 06/03/2025 7:11 AM [facility] Platelet Count 251 150 - 450 Thou/uL 06/03/2025 7:11 AM [facility] Hemoglobin 7.5(L) 11.7 - 15.7 g/dL 06/03/2025 7:11 AM [facility] Hematocrit 23.5(L) 35.0 - 47.0 % 06/03/2025 7:11 AM [facility] Red Blood Cell Count 2.58(L) 4.00 - 5.40 Mil/uL 06/03/2025 7:11 AM [facility] MCV 91 80 - 100 fL 06/03/2025 7:11 AM [facility] MCH 29.1 27.0 - 31.0 pg 06/03/2025 7:11 AM [facility] MCHC 31.9 30.0 - 36.0 g/dL 06/03/2025 7:11 AM [facility] RDW 18.2(H) 11.5 - 14.5 % 06/03/2025 7:11 AM [facility] MPV 9.5 7.5 - 12.5 fL 06/03/2025 7:11 AM [facility] Blood Blood specimen / Unknown 06/03/2025 6:08 AM EDT 06/03/2025 6:51 AM EDT us Anika Lau PA-C LAB BLOOD ORDERABLES Final Re sult [address] [address], [address] [address] * (ABNORMAL) Magnesium (AM) (06/03/2025 6:08 AM EDT) Only the most recent of20 resultswithin the time period is included. Magnesium 1.5(L) 1.6 - 2.7 mg/dL 06/03/2025 7:34 AM EDT [facility] Blood Blood specimen / Unknown 06/03/2025 6:08 AM EDT 06/03/2025 6:51 AM EDT [facility]- LAB BLOOD ORDERABLES Final Re sult Performing Organization Address [facility] [place] [address], [place] [address] * (ABNORMAL) Lipase (06/03/2025 6:08 AM EDT) Only the most recent of2 resultswithin the time period is included. Lipase 256(H) 13 - 60 U/L 06/03/2025 7:34 AM EDT [facility] Blood Blood specimen / Unknown 06/03/2025 6:08 AM EDT 06/03/2025 6:51 AM EDT [facility]- LAB BLOOD ORDERABLES Final Re sult Performing Organization Address [facility] [place] [address], [place] [address] * (ABNORMAL) Comprehensive Metabolic Panel (06/03/2025 6:08 AM EDT) Only the most recent of7 resultswithin the time period is included. Glucose 92 65 - 99 mg/dL 06/03/2025 7:34 AM T [facility] Comment:Fasting: <100 mg/dL, Non-Fasting: <200 mg/dL (ADA 2005) Blood Urea Nitrogen (BUN) 9 8 - 21 mg/dL 06/03/2025 7:34 AM EDT [facility] Creatinine 0.52 0.40 - 1.10 mg/dL 06/03/2025 7:34 AM [facility] eGFR >90 >59 06/03/2025 7:34 AM [facility] Comment:CKD-EPI (2020) in mL /min/1.73 sq meters. Sodium 135(L) 136 - 145 mmol/L 06/03/2025 7:34 AM [facility] Potassium 3.9 3.4 - 5.3 mmol/L 06/03/2025 7:34 AM [facility] Chloride 104 98 - 107 mmol/L 06/03/2025 7:34 AM [facility] CO2 24 22 - 33 mmol/L 06/03/2025 7:34 AM [facility] Calcium 8.0(L) 8.7 - 10.5 mg/dL 06/03/2025 7:34 AM [facility] Alkaline Phosphatase 119 32 - 122 U/L 06/03/2025 7:34 AM [facility] Aspartate Aminotrans (AST) 21 10 - 50 U/L 06/03/2025 7:34 AM [facility] Alanine Aminotrans (ALT) 11 10 - 50 U/L 06/03/2025 7:34 AM [facility] Bilirubin, Total 0.3 0.2 - 1.0 mg/dL 06/03/2025 7:34 AM [facility] Protein, Total 5.2(L) 6.3 - 8.3 g/dL 06/03/2025 7:34 AM [facility] Albumin 2.5(L) 3.4 - 4.8 g/dL 06/03/2025 7:34 AM [facility] BUN/Creatinine Ratio 17 10.0 - 25.0 Ratio 06/03/2025 7:34 AM [facility] Globulin 2.7 1.5 - 3.9 g/dL 06/03/2025 7:34 AM [facility] Albumin/Globulin Ratio 0.9(L) 1.0 - 3.0 Ratio 06/03/2025 7:34 AM [facility] Anion Gap 7 7 - 17 06/03/2025 7:34 AM [facility] Blood Blood specimen / Unknown 06/03/2025 6:08 AM EDT 06/03/2025 6:51 AM EDT us Anika Lau PA-C LAB BLOOD ORDERABLES Final Re sult Performing Organization Address [facility] Co de Phone Number [facility] [address] [place] [address], [facility] [address] [place] [address] * ECG 12 lead (06/02/2025 10:24 AM EDT) Only the most recent of15 resultswithin the time period is included. Pathologist [facility] Ventricular rate 81 BPM EKG [facility] Atrial rate 81 BPM EKG [facility] P-R interval 170 ms EKG [facility] QRS duration 66 ms EKG [facility] Q-T interval 406 ms EKG [facility] QTC calculation (Bazett) 472 ms EKG [facility] P axis 51 degrees EKG [facility] R axis 16 degrees EKG [facility] T axis 41 degrees EKG [facility] 06/02/2025 10:2 4 AM EDT Narrative EKG [facility] - 06/02/2025 10:30 AM EDT Normal sinus rhythm Nonspecific T wave abnormality Abnormal ECG Confirmed by MD Pace John ([id number]) on 06/02/2025 10:30:22 AM Procedure Note Alvaro Pace MD - 06/02/2025 Normal sinus rhythm Nonspecific T wave abnormality Abnormal ECG Confirmed by MD Pace John ([id number]) on 06/02/2025 10:30:22 AM Jhony Laird MD ECG ORDERABLES Final Resu lt Performing Organization Address [facility]/ZIP Co de Phone Number [facility] * Lactic Acid, Plasma (STAT) (06/02/2025 7:45 AM EDT) Only the most recent of15 resultswithin the time period is included. Lactic Acid 0.8 0.5 - 1.9 mmol/L 06/02/2025 8:33 AM EDT [facility] Blood Blood specimen / Unknown 06/02/2025 7:45 AM EDT 06/02/2025 8:03 AM EDT Anika Lau PA-C LAB BLOOD ORDERABLES Final Re sult [address] [address], [address] [address] * (ABNORMAL) Complete Blood Count, with Differential (06/02/2025 5:18 AM EDT) Only the most recent of6 resultswithin the time period is included. White Blood Cell Count 10.6 4.0 - 11.0 Thou/uL 06/02/2025 5:59 AM [facility] Platelet Count 269 150 - 450 Thou/uL 06/02/2025 5:59 AM [facility] Hemoglobin 7.9(L) 11.7 - 15.7 g/dL 06/02/2025 5:59 AM [facility] Hematocrit 25.0(L) 35.0 - 47.0 % 06/02/2025 5:59 AM [facility] Red Blood Cell Count 2.79(L) 4.00 - 5.40 Mil/uL 06/02/2025 5:59 AM [facility] MCV 90 80 - 100 fL 06/02/2025 5:59 AM [facility] MCH 28.3 27.0 - 31.0 pg 06/02/2025 5:59 AM [facility] MCHC 31.6 30.0 - 36.0 g/dL 06/02/2025 5:59 AM [facility] RDW 18.0(H) 11.5 - 14.5 % 06/02/2025 5:59 AM [facility] MPV 9.3 7.5 - 12.5 fL 06/02/2025 5:59 AM [facility] Neutrophils Auto 75.6 % 06/02/20 5:59 AM [facility] Immature Granulocytes 0.7 % 06/02/2025 5:59 AM [facility] Lymphocytes Auto 11.7 % 06/02/20 5:59 AM EDT [facility] Monocytes Auto 9.8 % 06/02/2025 5:59 AM EDT [facility] Eosinophils Auto 1.6 % 06/02/20 5:59 AM EDT [facility] Basophils Auto 0.6 % 06/02/2025 5:59 AM EDT [facility] Abs Neutrophils Auto 7.99(H) 2.00 - 7.50 Thou/uL 06/02/2025 5:59 AM EDT [facility] Abs Immature Granulocytes 0.07 0.00 - 0.10 Thou/uL 06/02/2025 5:59 AM EDT [facility] Abs Lymphocytes Auto 1.24(L) 1.50 - 4.50 Thou/uL 06/02/2025 5:59 AM EDT [facility] Abs Monocytes Auto 1.04 0.20 - 1.50 Thou/uL 06/02/2025 5:59 AM EDT [facility] Abs Eosinophils Auto 0.17 0.00 - 0.70 Thou/uL 06/02/2025 5:59 AM EDT [facility] Abs Basophils Auto 0.06 0.00 - 0.20 Thou/uL 06/02/2025 5:59 AM EDT [facility] Blood Blood specimen / Unknown 06/02/2025 5:18 AM EDT 06/02/2025 5:49 AM EDT Jhony Laird MD LAB BLOOD ORDERABLES Final Result [address] [address], [address] [address] * CT Abdomen+pelvis w/contrast (06/01/2025 2:25 PM EDT) Only the most recent of2 resultswithin the time period is included. Anatomical Region Laterality Modality Abdomen, Pelvis Computed Tomogra phy 06/01/2025 2:07 PM EDT Impressions 06/02/2025 2:27 PM EDT 1. Status post colectomy with right lower quadrant ileostomy. 2. 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 3. Previously seen small loculated collection at the mouth of the hernia appears significantly smaller. 4. Midline periumbilical collection with air bubbles and fistulous tract to the skin appears slightly decreased in size. 5. Cholecystostomy tube remains in place. 6. Heterogeneous liver with nodular border similar to prior. Fleischner guidelines were followed. Narrative 06/02/2025 2:27 PM EDT EXAMINATION: CT ABDOMEN AND PELVIS WITH CONTRAST CLINICAL INFORMATION: Automated assessed pancreas abscess and assess changes in intra-abdominal abscesses COMPARISON: CT abdomen pelvis 05/14/2025 : Loculated 2.4 cm collection at the neck of the right parastomal hernia, suspicious for abscess. Additional enlarging collection within the mid abdominal soft tissues demonstrates an associated cutaneous drainage tract TECHNIQUE: Multidetector volumetric imaging was performed from the superior aspect of the liver through the pubic symphysis with intravenous contrast. A total of 80 mL of Omnipaque 350 was utilized for the study. Sagittal and coronal reformatted images were obtained on the technologist's workstation. This CT examination was performed using dose optimization techniques as appropriate, variously including the following: *Automated exposure control *Adjustment of mA and/or kV according to patient size (this includes techniques or standardized protocols for targeted exams where dose is matched to indication/reason for exam; i.e. extremities or head) *Use of iterative reconstruction technique DLP: 195 mGy-cm FINDINGS: LUNG BASES: The visualized lung bases are unremarkable. LIVER, GALLBLADDER, AND BILIARY TREE: The liver is heterogeneous with a nodular border similar to prior. The liver is normal in size. No focal hepatic lesion or biliary ductal dilatation is present. Cholecystostomy tube remains in place. PANCREAS: Unremarkable. SPLEEN: Unremarkable. ADRENAL GLANDS: Unremarkable. KIDNEYS AND URETERS: The kidneys are normal in size, shape, and attenuation. No hydronephrosis, hydroureter, or calculi seen. A benign left upper pole 1.5 cm Bosniak class I renal cyst is noted which requires no additional imaging or follow up. No solid renal masses are seen. BLADDER: Unremarkable. GASTROINTESTINAL TRACT: Status post colectomy with a Tye pouch and a right lower quadrant ileostomy. No small bowel obstruction. No new intra-abdominal collections. ABDOMINAL WALL: Parastomal hernia present around the ileostomy containing nondilated loops of small bowel similar to prior . Previously seen small loculated collection with peripherally enhancing capsule that had measured 2.8 x 1.0 cm at the mouth of the hernia appears significantly smaller measuring 1.9 x 0.3 cm with virtually no central low density and only the capsule remaining (2:46 compare prior 301:362). Near resolution of the previously noted anasarca. Persistent midline periumbilical collection with air bubbles measuring about 2.6 x 1.1 x 2.4 cm with cutaneous fistulous tract to skin appears slightly decreased in size when compared to prior when this measured 5.2 x 1.4 x 3.9 cm. LYMPH NODES: No retroperitoneal lymphadenopathy VASCULAR: Unremarkable. PELVIC VISCERA: The uterus and adnexa are unremarkable. OSSEOUS STRUCTURES: Unremarkable. Procedure Note Lucius Castrejon MD - 06/02/2025 EXAMINATION: CT ABDOMEN AND PELVIS WITH CONTRAST CLINICAL INFORMATION: Automated assessed pancreas abscess and assess changes in intra-abdominal abscesses COMPARISON: CT abdomen pelvis 05/14/2025 : Loculated 2.4 cm collection at the neck of the right parastomal hernia, suspicious for abscess. Additional enlarging collection within the mid abdominal soft tissues demonstrates an associated cutaneous drainage tract TECHNIQUE: Multidetector volumetric imaging was performed from the superior aspect of the liver through the pubic symphysis with intravenous contrast. A total of 80 mL of Omnipaque 350 was utilized for the study. Sagittal and coronal reformatted images were obtained on the technologist's workstation. This CT examination was performed using dose optimization techniques as appropriate, variously including the following: *Automated exposure control *Adjustment of mA and/or kV according to patient size (this includes techniques or standardized protocols for targeted exams where dose is matched to indication/reason for exam; i.e. extremities or head) *Use of iterative reconstruction technique DLP: 195 mGy-cm FINDINGS: LUNG BASES: The visualized lung bases are unremarkable. LIVER, GALLBLADDER, AND BILIARY TREE: The liver is heterogeneous with a nodular border similar to prior. The liver is normal in size. No focal hepatic lesion or biliary ductal dilatation is present. Cholecystostomy tube remains in place. PANCREAS: Unremarkable. SPLEEN: Unremarkable. ADRENAL GLANDS: Unremarkable. KIDNEYS AND URETERS: The kidneys are normal in size, shape, and attenuation. No hydronephrosis, hydroureter, or calculi seen. A benign left upper pole 1.5 cm Bosniak class I renal cyst is noted which requires no additional imaging or follow up. No solid renal masses are seen. BLADDER: Unremarkable. GASTROINTESTINAL TRACT: Status post colectomy with a Tye pouch and a right lower quadrant ileostomy. No small bowel obstruction. No new intra-abdominal collections. ABDOMINAL WALL: Parastomal hernia present around the ileostomy containing nondilated loops of small bowel similar to prior . Previously seen small loculated collection with peripherally enhancing capsule that had measured 2.8 x 1.0 cm at the mouth of the hernia appears significantly smaller measuring 1.9 x 0.3 cm with virtually no central low density and only the capsule remaining (2:46 compare prior 301:362). Near resolution of the previously noted anasarca. Persistent midline periumbilical collection with air bubbles measuring about 2.6 x 1.1 x 2.4 cm with cutaneous fistulous tract to skin appears slightly decreased in size when compared to prior when this measured 5.2 x 1.4 x 3.9 cm. LYMPH NODES: No retroperitoneal lymphadenopathy VASCULAR: Unremarkable. PELVIC VISCERA: The uterus and adnexa are unremarkable. OSSEOUS STRUCTURES: Unremarkable. IMPRESSION: 1. Status post colectomy with right lower quadrant ileostomy. 2. 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 3. Previously seen small loculated collection at the mouth of the hernia appears significantly smaller. 4. Midline periumbilical collection with air bubbles and fistulous tract to the skin appears slightly decreased in size. 5. Cholecystostomy tube remains in place. 6. Heterogeneous liver with nodular border similar to prior. Fleischner guidelines were followed. Anika Lau PA-C [facility] ORDERABLES Final Resul t * (ABNORMAL) Basic Metabolic Panel (06/01/2025 5:30 AM EDT) Only the most recent of21 resultswithin the time period is included. Glucose 100(H) 65 - 99 mg/dL 06/01/2025 6:03 AM EDT [facility] Comment:Fasting: <100 mg/dL, Non-Fasting: <200 mg/dL (ADA 2004) Blood Urea Nitrogen (BUN) 31(H) 8 - 21 mg/dL 06/01/2025 6:03 AM EDT [facility] Creatinine 1.26(H) 0.40 - 1.10 mg/dL 06/01/2025 6:03 AM EDT [facility] eGFR 47(L) >59 06/01/2025 6:03 AM T [facility] Comment:CKD-EPI (2020) in mL /min/1.73 sq meters. Sodium 133(L) 136 - 145 mmol/L 06/01/2025 6:03 AM EDT [facility] Potassium 4.5 3.4 - 5.3 mmol/L 06/01/2025 6:03 AM EDT [facility] Chloride 103 98 - 107 mmol/L 06/01/2025 6:03 AM EDT [facility] CO2 20(L) 22 - 33 mmol/L 06/01/2025 6:03 AM T [facility] Anion Gap 10 7 - 17 06/01/2025 6:03 AM [facility] Calcium 8.7 8.7 - 10.5 mg/dL 06/01/2025 6:03 AM [facility] BUN/Creatinine Ratio 25 10.0 - 25.0 Ratio 06/01/2025 6:03 AM [facility] Blood Blood specimen / Unknown 06/01/2025 5:30 AM EDT 06/01/2025 5:35 AM EDT us Anika Lau PA-C LAB BLOOD ORDERABLES Final Re sult [address] [address], [address] [address] * XR Knee 3 views-Bilateral (05/28/2025 4:06 PM EDT) Anatomical Region Laterality Modality Knee Bilateral Computed Radiogr aphy 05/28/2025 3:51 PM EDT Impressions 05/29/2025 11:38 AM EDT Bilateral degenerative changes. Findings are predominantly in the lateral compartment with progression seen in the right knee. Narrative 05/29/2025 11:38 AM EDT EXAMINATION: XR KNEE, RIGHT XR KNEE, LEFT CLINICAL INFORMATION: History of bilateral knee OA, obtain updated imaging for procedure COMPARISON: 05/05/2020 TECHNIQUE: Four views of each knee. FINDINGS: RIGHT KNEE: There is severe narrowing of the lateral joint space with marginal osteophyte formation and prominence to the tibial spines and mild narrowing of the medial joint space with marginal spurring. Some subchondral irregularity along the lateral femoral condyle is noted and findings have progressed slightly. Patellofemoral degenerative change noted. No fracture, dislocation or destructive process or effusion. LEFT KNEE: There is advanced narrowing of the lateral joint space with marginal osteophyte formation. The medial joint space appears preserved. There is no erosive change, fracture, dislocation or destructive process. No joint effusion. Procedure Note Brandyn Sanon MD - 05/29/2025 EXAMINATION: XR KNEE, RIGHT XR KNEE, LEFT CLINICAL INFORMATION: History of bilateral knee OA, obtain updated imaging for procedure COMPARISON: 05/05/2020 TECHNIQUE: Four views of each knee. FINDINGS: RIGHT KNEE: There is severe narrowing of the lateral joint space with marginal osteophyte formation and prominence to the tibial spines and mild narrowing of the medial joint space with marginal spurring. Some subchondral irregularity along the lateral femoral condyle is noted and findings have progressed slightly. Patellofemoral degenerative change noted. No fracture, dislocation or destructive process or effusion. LEFT KNEE: There is advanced narrowing of the lateral joint space with marginal osteophyte formation. The medial joint space appears preserved. There is no erosive change, fracture, dislocation or destructive process. No joint effusion. IMPRESSION: Bilateral degenerative changes. Findings are predominantly in the lateral compartment with progression seen in the right knee. Sydni Barakat MD [facility] ORDER PAT Final Result * Phosphorus (AM) (05/27/2025 6:20 AM EDT) Only the most recent of10 resultswithin the time period is included. Phosphorus 2.8 2.7 - 4.5 mg/dL 05/27/2025 7:24 AM EDT [facility] Blood Blood specimen / Unknown 05/27/2025 6:20 AM EDT 05/27/2025 6:49 AM EDT Jessica Earl PA-C LAB BLOOD ORDERABLES Final Result Performing Organization Address [facility] Co de Phone Number [address] [address], [address] [address] * Sodium, Urine, Random (05/25/2025 2:52 PM EDT) Sodium, Urine Random <20 mmol/L 05/25/2025 3:28 PM EDT [facility] Comment:Reference range not established for random specimen. Urine Urine specimen / Unknown 05/25/2025 2:52 PM EDT 05/25/2025 3:10 PM EDT us Merva Ward UTILITY WORKER DRIVER URINE ORDERABLES Final Result Performing Organization Address [facility] [place] [address], [place] [address] * Osmolality, Urine (05/25/2025 2:52 PM EDT) Osmolality, Urine 546 50 - 1,200 mOsm/Kg 05/25/2025 4:13 PM EDT [facility] Urine Urine specimen / Unknown 05/25/2025 2:52 PM EDT 05/25/2025 3:10 PM EDT us Merva Ward UTILITY WORKER DRIVER URINE ORDERABLES Final Result Performing Organization Address [facility] [place] [address], [address] [address] * (ABNORMAL) Renal Function Panel (05/24/2025 5:13 AM EDT) Glucose 92 65 - 99 mg/dL 05/24/2025 7:38 AM EDT [facility] Comment:Fasting: <100 mg/dL, Non-Fasting: <200 mg/dL (ADA 2004) Blood Urea Nitrogen (BUN) 31(H) 8 - 21 mg/dL 05/24/2025 7:38 AM EDT [facility] Creatinine 1.05 0.40 - 1.10 mg/dL 05/24/2025 7:38 AM [facility] eGFR 59(L) >59 05/24/2025 7:38 AM [facility] Comment:CKD-EPI (2020) in mL /min/1.73 sq meters. Sodium 131(L) 136 - 145 mmol/L 05/24/2025 7:38 AM [facility] Potassium 4.4 3.4 - 5.3 mmol/L 05/24/2025 7:38 AM [facility] Chloride 98 98 - 107 mmol/L 05/24/2025 7:38 AM [facility] CO2 21(L) 22 - 33 mmol/L 05/24/2025 7:38 AM [facility] Calcium 8.6(L) 8.7 - 10.5 mg/dL 05/24/2025 7:38 AM [facility] Phosphorus 3.0 2.7 - 4.5 mg/dL 05/24/2025 7:38 AM [facility] Albumin 3.4 3.4 - 4.8 g/dL 05/24/2025 7:38 AM [facility] BUN/Creatinine Ratio 30(H) 10.0 - 25.0 Ratio 05/24/2025 7:38 AM [facility] Blood Blood specimen / Unknown 05/24/2025 5:13 AM EDT 05/24/2025 6:24 AM EDT us Sydni Barakat MD LAB BLOOD [place]AB[place] [address], [place] [address] * (ABNORMAL) High Sensitivity D-Dimer (05/17/2025 5:09 AM EDT) Only the most recent of7 resultswithin the time period is included. High Sensitivity D-Dimer 344(H) <230 ng/mL DDU 05/17/2025 6:23 AM [facility] Comment: The threshold for exclusion of venous thromboembolism (VTE) is 230 ng/mL DDU (D Dimer Units). The Normal Range for D-Dimer is <244 ng/mL DDU (D Dimer Units). Studies, however, indicate a higher threshold is more appropriate for patients >50 y. This threshold is calculated by multiplying age by 5. Example: The estimated age adjusted VTE threshold for a 60 year old is 60 x 5 = 300 ng/mL DDU. Note: 1 DDU = 2 FEU (Fibrinogen Equivalent Units) Blood Blood specimen / Unknown 05/17/2025 5:09 AM EDT 05/17/2025 6:04 AM EDT us Malvin Boone MD LAB BLOOD ORDERABLES Final Result Performing Organization Address [facility] [place] [address], [address] [address] * Partial Thromboplastin Time (PTT) (05/17/2025 5:09 AM EDT) Only the most recent of7 resultswithin the time period is included. Anticoagulant NO ANTI COAGULANT MEDS 05/17/2025 5:09 AM EDT [facility] Partial Thromboplastin Time (PTT) 28 25 - 36 seconds 05/17/2025 6:23 AM EDT [facility] Blood Blood specimen / Unknown 05/17/2025 5:09 AM EDT 05/17/2025 6:04 AM EDT us Malvin Boone MD LAB BLOOD ORDERABLES Final Result Performing Organization Address City/[facility]/[place] [address], [address] [address] * (ABNORMAL) PROTIME-INR (05/17/2025 5:09 AM EDT) Only the most recent of8 resultswithin the time period is included. Anticoagulant NO ANTI COAGULANT MEDS 05/17/2025 5:09 AM EDT [facility] Prothrombin Time (PT) 17.1(H) 10.0 - 13.5 seconds 05/17/2025 6:23 AM EDT [facility] INR 1.5 05/17/2025 6:23 AM EDT [facility] Comment:INR Therapeutic Rang es: Standard dose anticoagulant 2.0 to 3.0, High dose anticoagulant 2.5-3.5. Blood Blood specimen / Unknown 05/17/2025 5:09 AM EDT 05/17/2025 6:04 AM EDT us Malvin Boone MD LAB BLOOD ORDERABLES Final Result Performing Organization Address City/[facility]/[place] [address], [place] [address] * Fibrinogen Level (05/17/2025 5:09 AM EDT) Only the most recent of8 resultswithin the time period is included. Fibrinogen 179 148 - 435 mg/dL 05/17/2025 6:23 AM EDT [facility] Blood Blood specimen / Unknown 05/17/2025 5:09 AM EDT 05/17/2025 6:04 AM EDT us Malvin Boone MD LAB BLOOD ORDERABLES Final Result Performing Organization Address [facility] [place] [address], [address] [address] * Protein, Total (05/17/2025 5:09 AM EDT) Protein, Total 6.3 6.3 - 8.3 g/dL 05/17/2025 6:30 AM EDT [facility] Blood Blood specimen / Unknown 05/17/2025 5:09 AM EDT 05/17/2025 6:04 AM EDT us Malvin Boone MD LAB BLOOD ORDERABLES Final Result Performing Organization Address City/[facility]/[place] [address], [address] [address] * Lactate Dehydrogenase (LDH) (05/17/2025 5:09 AM EDT) Only the most recent of2 resultswithin the time period is included. Lactate Dehydrogenase (LDH) 137 120 - 260 U/L 05/17/2025 6:30 AM EDT [facility] Blood Blood specimen / Unknown 05/17/2025 5:09 AM EDT 05/17/2025 6:04 AM EDT us Malvin Boone MD LAB BLOOD ORDERABLES Final Result [address] [address], [address] [address] * THORACENTESIS (05/16/2025 3:58 PM EDT) Anatomical Region Laterality Modality Other Narrative 05/16/2025 3:58 PM EDT PATIENCE Lopez 05/16/2025 4:00 PM Thoracentesis Date/Time: 05/16/2025 3:58 PM Performed by: PATIENCE Lopez Authorized by: PATIENCE Lopez Consent: Verbal consent obtained Risks and benefits: risks, benefits and alternatives were discussed Consent given by: patient Patient understanding: patient states understanding of the procedure being performed Patient consent: the patient's understanding of the procedure matches consent given Procedure consent: procedure consent matches procedure scheduled Relevant documents: relevant documents present and verified Test results: test results available and properly labeled Site marked: the operative site was marked Imaging studies: imaging studies available Patient identity confirmed: verbally with patient and arm band Time out: Immediately prior to procedure a time out was called to verify the correct patient, procedure, equipment, technical support technician and site/side marked as required. Procedure purpose: diagnostic and therapeutic Indications: pleural effusion Preparation: Patient was prepped and draped in the usual sterile fashion. Local anesthesia used: yes Anesthesia: Local anesthesia used: yes Local Anesthetic: lidocaine 1% without epinephrine Anesthetic total: 10 mL Sedation: Patient sedated: no Preparation: skin prepped with chlorhexidine Patient position: right lateral decubitus Location: left posterior Number of attempts: 1 Drainage amount: 400 ml Drainage characteristics: clear and serous Patient tolerance: patient tolerated the procedure well with no immediate complications us Kristin MORIN PFT ORDERABLES Edited Result - Final * US Guided Bedside Thoracentesis-Bilateral (05/16/2025 3:53 PM EDT) Anatomical Region Laterality Modality Ultrasound Impressions 05/16/2025 4:03 PM EDT Successful left ultrasound-guided diagnostic and therapeutic thoracentesis yielding 400 ml of clear yellow fluid. Comments: Ultrasound images of the chest demonstrates trace right sided effusion. No safe window to tap. No procedure performed at this time. PATIENCE Lopez 05/16/2025 4:03 PM This procedure was performed and dictated by PATIENCE Lopez Narrative 05/16/2025 4:03 PM EDT PROCEDURE: Ultrasound-guided thoracentesis INDICATION: Bilateral pleural effusion. SPECIMEN: Specimen collected as requested. Sample left with bedside RN. ACCESS: 6 Bangladeshi Bdbl-[id number] closed needle/catheter system REQUESTING PRACTITIONER: KURT Mitchell CLINICIAN(S): PATIENCE Lopez CONSENT: Informed consent was obtained from the patient prior to the procedure. During this process, the procedure and potential alternatives were explained along with the intended outcome and benefits. The risks of the procedure, including the possibility of an unsuccessful procedure as well as the risk of not doing the procedure were discussed. the patient was given the opportunity to ask any questions regarding the procedure and appeared competent to make medical decisions. A signed consent form which documents this discussion was placed in the medical record. A timeout procedure was performed. HISTORY: Kia Phelps is a 65 y.o. old female with a suspected bilateral pleural effusion. The patient was referred for an ultrasound-guided thoracentesis. MEDICATIONS: 10ml 1% lidocaine. TECHNIQUE/FINDINGS: Appropriate pre-procedure medical history and imaging studies were reviewed. The ultrasound machine was brought to the patients bedside. Ultrasound images of the left thorax were obtained to localize a pleural effusion large enough to safely access. Images were permanently saved to the record. An area of the patient's back was prepped and draped in the standard sterile fashion. 10 mL of 1% lidocaine was used to obtain local anesthesia of the skin and deeper tissues. A standard small bore needle was introduced to sample fluid and demonstrated a safe access route. There was no evidence of traversing adjacent organs or vascular structures. A 6 Bangladeshi Lbal-K-Lppuqczs closed needle/catheter system was utilized for access. 400 ml of clear yellow fluid was aspirated before drainage ceased. The catheter was removed and a sterile dressing applied. The patient tolerated the procedure well without evidence of complications. Malvin Boone MD IMG US ORDERABLES Final Re sult * Culture - Pleural Fluid (includes Aerobic, Anaerobic and Gram Stain) (05/16/2025 3:35 PM EDT) Gram stain suggestive of Moderate neutrophils Mononuclear cells No organisms seen 05/16/2025 7:33 PM EDT [facility] Culture No aerobes and anaerobes isolated after 7 days 05/23/2025 3:38 PM EDT [facility] Fluid, Pleural Specimen from pleura obtained by thoracentesis / Unknown 05/16/2025 3:35 PM EDT 05/16/2025 5:52 PM EDT Comment:Fluid, Pleural Malvin Boone MD MICROBIOLOGY - GENERAL ORD ERABLES Final Result [facility] [address] [place] [address], [place] [address] * Protein - Pleural Fluid (05/16/2025 3:35 PM EDT) Source Pleural Cavity, Left 05/16/2025 3:35 PM EDT [facility] Comment:Fluid, Pleural Protein, Body Fluid 2.3 g/dL 05/16/2025 5:40 PM EDT [facility] Comment:The reference interv al(s) and other method performance specifications are unavailable for this body fluid. Comparison of this result with the concentration in the blood, serum, or plasma is recommended. Fluid, Pleural Specimen from pleura obtained by thoracentesis / Unknown 05/16/2025 3:35 PM EDT 05/16/2025 4:33 PM EDT us Malvin Boone MD BODY FLUIDS AND STOOLS ORD ERABLES Final Result Performing Organization Address [facility] de Phone Number [address] [address], [address] [address] * LDH - Pleural Fluid (05/16/2025 3:35 PM EDT) Source Pleural Cavity, Left 05/16/2025 3:35 PM EDT [facility] Comment:Fluid, Pleural Lactate Dehydrogenase, Body Fluid 51 U/L 05/16/2025 5:40 PM EDT [facility] Comment:The reference interv al(s) and other method performance specifications are unavailable for this body fluid. Comparison of this result with the concentration in the blood, serum, or plasma is recommended. Fluid, Pleural Specimen from pleura obtained by thoracentesis / Unknown 05/16/2025 3:35 PM EDT 05/16/2025 4:33 PM EDT us Malvin Boone MD BODY FLUIDS AND STOOLS ORD ERABLES Final Result Performing Organization Address [facility] de Phone Number [address] [address], [address] [address] * Glucose - Pleural Fluid (05/16/2025 3:35 PM EDT) Source Pleural Cavity, Left 05/16/2025 3:35 PM EDT [facility] Comment:Fluid, Pleural Glucose, Body Fluid 84 mg/dL 05/16/2025 5:40 PM EDT [facility] Comment:The reference interv al(s) and other method performance specifications are unavailable for this body fluid. Comparison of this result with the concentration in the blood, serum, or plasma is recommended. Fluid, Pleural Specimen from pleura obtained by thoracentesis / Unknown 05/16/2025 3:35 PM EDT 05/16/2025 4:33 PM EDT us Malvin Boone MD BODY FLUIDS AND STOOLS ORD ERABLES Final Result Performing Organization Address [facility]/ZIP Co de Phone Number [address] [address], [address] [address] * Cell Count, Reflex Differential, Body Fluid (05/16/2025 3:35 PM EDT) Appearance, Body Fluid Clear 05/16/2025 8:39 PM EDT [facility] Color Yellow 05/16/2025 8:39 PM EDT [facility] Nucleated Cells, Fluid 96 /CUMM 05/16/2025 5:41 PM T [facility] Comment:Macroscopic particle s present. Question accuracy of results. RBC, Fluid <2,000 /CUMM 05/16/2025 5:41 PM T [facility] Comment:Macroscopic particle s present. Question accuracy of results. Neutrophil, Body Fluid 4 % 05/16/2025 8:39 PM EDT [facility] Lymphoctye, Body Fluid 22 % 05/16/2025 8:39 PM EDT [facility] Monocyte, Body Fluid 38 % 05/16/2025 8:39 PM EDT [facility] Histiocyte, Body Fluid 28 % 05/16/2025 8:39 PM EDT [facility] Mesothelial, Body Fluid 8 % 05/16/2025 8:39 PM T [facility] Smear Comment, Body Fluid The reference interval and other method performance specifications are unavailable for this body fluid. Comparison of the result with concentration in the blood, serum, or plasma is recommended 05/16/2025 8:39 PM [facility] Fluid, Pleural Specimen from pleura obtained by thoracentesis / Unknown 05/16/2025 3:35 PM EDT 05/16/2025 4:33 PM EDT Malvin Boone MD BODY FLUIDS AND STOOLS ORD ERABLES Final Result [address] [address], [address] [address] * Thrombin Time (05/16/2025 10:00 AM EDT) Only the most recent of5 resultswithin the time period is included. Anticoagulant NO ANTI COAGULANT MEDS 05/16/2025 9:22 AM EDT [facility] Thrombin Time 18.1 12.7 - 19.2 seconds 05/16/2025 10:40 AM EDT [facility] Blood Blood specimen / Unknown 05/16/2025 10:00 AM EDT 05/16/2025 10:12 AM EDT us Calvin Lew MD LAB BLOOD [place]AB[place] [address], [address] [address] * EEG < 24 HR W/VIDEO -REDUCED SERVICE (05/15/2025 8:22 AM EDT) Narrative [facility] - 05/15/2025 8:23 AM EDT Laura Chaudhari MD 05/15/2025 1:22 PM ADULT INPATIENT CONTINUOUS VIDEO-EEG MONITORING (LTM) REPORT Facility: [facility] Patient and : Kia Phelps 1960 Date of Procedure: 05/15/2025 Admission Attending: Max Young MD Recording begun at 00:02 hrs on 05/09/25 and is ongoing continuously unless otherwise noted. CLINICAL INFORMATION: The patient is a 65 y.o. female undergoing continuous EEG to evaluate for spells concerning for seizures. SEIZURE MEDICATIONS: Keppra RECORDING CONDITIONS: Continuous VEEG monitoring was performed. Electrodes were applied according to the International 10-20 System. Data were obtained, stored, and interpreted according to ACNS guidelines (J Clin Neurophysiol 2006;23(2):85-183) utilizing referential montage recording, with reformatting to longitudinal, transverse bipolar, and referential montages as necessary for interpretation, along with digital/automated EEG analysis of [place] and Event detections. Patient tolerated procedure without issue. DESCRIPTION OF DAILY EEG AND EVENTS: Monitoring Day 1: 05/09/2025 Posterior Activity: Posterior dominant rhythm was briefly seen and consisted of high head reactive rhythm. Background Activity: The background was symmetric and continuous consisting of predominantly medium high voltage sharply contoured polymorphic delta and theta frequencies; anterior-posterior organization was absent. There is abundant 1 to 2 Hz generalized, bifrontal predominant periodic sharply contoured waveforms with triphasic more allergy (GPD's with triphasic morphology) Reactivity/Variability/Sleep: Reactivity and state changes were present; no clear stage II architecture. Focal Slowing: None. Interictal Epileptiform Abnormalities: None. Seizures/Events: None. ECG: No notable ECG abnormalities were apparent. ^^^ Dr. Berman reviewed EEG until 15:20 hours, after which Dr. Chaudhari reviewed EEG. ^^^ Monitoring Day 2: 05/10/2025 Posterior Activity: In the maximally awake state, posterior frequencies were symmetric consisting of 9 Hz activity without reactivity to eye opening. Background Activity: The background was symmetric and continuous consisting of predominantly normal voltage, alpha and theta frequencies; anterior-posterior organization was present with mild disorganization. Frequent (at least 1 per minute but less than every 10 seconds) transients with a triphasic morphology were seen which were generalized, frontally predominant, and were sporadic with an anterior-posterior lag. These discharges were stimulus-induced. Reactivity/Variability/Sleep: Reactivity and state changes were present; no clear stage II architecture. Focal Slowing: None. Interictal Epileptiform Abnormalities: None. Seizures/Events: None. Other: N/A. ECG: No notable ECG abnormalities were apparent. Monitoring Day 3: 05/11/2025 Posterior Activity: In the maximally awake state, posterior frequencies were symmetric consisting of 9 Hz activity without reactivity to eye opening. Background Activity: The background was symmetric and continuous consisting of predominantly normal voltage, alpha and theta frequencies; anterior-posterior organization was present with mild disorganization. Reactivity/Variability/Sleep: Reactivity and state changes were present; no clear stage II architecture. Focal Slowing: None. Interictal Epileptiform Abnormalities: None. Seizures/Events: None. Other: N/A. ECG: No notable ECG abnormalities were apparent. Monitoring Day 4: 05/12/2025 Posterior Activity: In the maximally awake state, posterior frequencies were symmetric consisting of 9 Hz activity without reactivity to eye opening. Background Activity: The background was symmetric and continuous consisting of predominantly normal voltage, alpha and theta frequencies; anterior-posterior organization was present. Reactivity/Variability/Sleep: Reactivity and state changes were present. There was well formed stage 2 sleep structures. Focal Slowing: None. Interictal Epileptiform Abnormalities: None. Seizures/Events: None. Other: N/A. ECG: No notable ECG abnormalities were apparent. Monitoring Day 5: 05/13/2025 Posterior Activity: In the maximally awake state, posterior frequencies were symmetric consisting of 9 Hz activity without reactivity to eye opening. Background Activity: The background was symmetric and continuous consisting of predominantly normal voltage, alpha and theta frequencies; anterior-posterior organization was present. Reactivity/Variability/Sleep: Reactivity and state changes were present. There was well formed stage 2 sleep structures. Focal Slowing: None. Interictal Epileptiform Abnormalities: None. Seizures/Events: None. Other: N/A. ECG: No notable ECG abnormalities were apparent. Monitoring Day 6: 05/14/2025 Posterior Activity: In the maximally awake state, posterior frequencies were symmetric consisting of 9 Hz activity without reactivity to eye opening. Background Activity: The background was symmetric and continuous consisting of predominantly normal voltage, alpha and theta frequencies; anterior-posterior organization was present. Reactivity/Variability/Sleep: Reactivity and state changes were present. There was well formed stage 2 sleep structures. Focal Slowing: None. Interictal Epileptiform Abnormalities: None. Seizures/Events: None. Other: N/A. ECG: No notable ECG abnormalities were apparent. Monitoring Day 7: 05/15/2025 Posterior Activity: In the maximally awake state, posterior frequencies were symmetric consisting of 9 Hz activity without reactivity to eye opening. Background Activity: The background was symmetric and continuous consisting of predominantly normal voltage, alpha and theta frequencies; anterior-posterior organization was present. Reactivity/Variability/Sleep: Reactivity and state changes were present. There was well formed stage 2 sleep structures. Focal Slowing: None. Interictal Epileptiform Abnormalities: None. Seizures/Events: None. Other: N/A. ECG: No notable ECG abnormalities were apparent. DAILY IMPRESSIONS Monitoring Day 1: 05/09/2025. Moderate encephalopathy. Abundant GPD's with triphasic morphology was present. No seizures Monitoring Day 2: 05/10/2025 - Nonspecific, mild to moderate encephalopathy. The discharges with a triphasic morphology could be a nonspecific marker of encephalopathy or confer an increased risk of focal- or generalized-onset seizures. Their lag and relative suppression in the unstimulated state suggested the former. Monitoring Day 3: 05/11/2025 - Nonspecific, mild encephalopathy. Monitoring Day 4: 05/12/2025 - Normal interictal. Monitoring Day 5: 05/13/2025 - Normal interictal. Monitoring Day 6: 05/14/2025 - Normal interictal. Monitoring Day 7: 05/15/2025 - Normal interictal. E.E.G. INTERPRETATION: Abnormal 6+ day continuous Video-EEG Monitoring Study due to: Non-epileptic events: None. Epileptic events: None. Interictal abnormalities: Continuous generalized, polymorphic delta/theta slowing initially; by the end of the recording, this had resolved. Abundant discharges with a triphasic morphology abundantly meeting criteria for generalized periodic discharges (GPDs) with a triphasic morphology initially; by the end of the recording, these had resolved. These were relatively attenuated in the unstimulated state. CLINICAL CORRELATION: No events were recorded. No epileptiform interictal patterns were noted. This EEG was suggestive of a nonspecific, moderate encephalopathyinitially; by the end of the recording the diffuse background abnormalities had resolved Overall recording Period: 00:02 hrs on 05/09/25 through 08:26 hrs on 05/15/2025. ATTESTATION: This EEG was continuously available for review and interpretation. EEG was reviewed and the note updated at least daily for the duration of the recording period, and results provided to the neurology team providing direct patient care. MD Olivia Galicia MD ABPN Epilepsy. [facility] us Greg Sigala MD NEUROLOGY ORDERABLES Edited Res ult - Final Performing Organization Address City/[facility]/ZIP Co de Phone Number [facility] [phone] [place] [address], * (ABNORMAL) C-REACTIVE PROTEIN (05/15/2025 5:48 AM EDT) C-Reactive Protein 2.18(H) 0 - 0.49 mg/dL 05/15/2025 10:45 AM EDT [facility] 05/15/2025 5:48 AM EDT 05/15/2025 6:27 AM EDT us Calvin Lew MD LAB BLOOD ORDERABLES Final Result [address] [address], [address] [address] * EEG 24 HOUR WITH VIDEO (05/15/2025 4:45 AM EDT) Narrative [facility] - 05/14/2025 5:24 PM EDT Laura Chaudhari MD 05/14/2025 5:25 PM ADULT INPATIENT CONTINUOUS VIDEO-EEG MONITORING (LTM) REPORT Facility: [facility] Patient and : Kia Phelps 1960 Date of Procedure: 05/14/2025 Admission Attending: Max Young MD Recording begun at 00:02 hrs on 05/09/25 and is ongoing continuously unless otherwise noted. CLINICAL INFORMATION: The patient is a 65 y.o. female undergoing continuous EEG to evaluate for spells concerning for seizures. SEIZURE MEDICATIONS: Keppra RECORDING CONDITIONS: Continuous VEEG monitoring was performed. Electrodes were applied according to the International 10-20 System. Data were obtained, stored, and interpreted according to ACNS guidelines (J Clin Neurophysiol 2006;23(2):85-183) utilizing referential montage recording, with reformatting to longitudinal, transverse bipolar, and referential montages as necessary for interpretation, along with digital/automated EEG analysis of [place] and Event detections. Patient tolerated procedure without issue. DESCRIPTION OF DAILY EEG AND EVENTS: Monitoring Day 1: 05/09/2025 Posterior Activity: Posterior dominant rhythm was briefly seen and consisted of high head reactive rhythm. Background Activity: The background was symmetric and continuous consisting of predominantly medium high voltage sharply contoured polymorphic delta and theta frequencies; anterior-posterior organization was absent. There is abundant 1 to 2 Hz generalized, bifrontal predominant periodic sharply contoured waveforms with triphasic more allergy (GPD's with triphasic morphology) Reactivity/Variability/Sleep: Reactivity and state changes were present; no clear stage II architecture. Focal Slowing: None. Interictal Epileptiform Abnormalities: None. Seizures/Events: None. ECG: No notable ECG abnormalities were apparent. ^^^ Dr. Berman reviewed EEG until 15:20 hours, after which Dr. Chaudhari reviewed EEG. ^^^ Monitoring Day 2: 05/10/2025 Posterior Activity: In the maximally awake state, posterior frequencies were symmetric consisting of 9 Hz activity without reactivity to eye opening. Background Activity: The background was symmetric and continuous consisting of predominantly normal voltage, alpha and theta frequencies; anterior-posterior organization was present with mild disorganization. Frequent (at least 1 per minute but less than every 10 seconds) transients with a triphasic morphology were seen which were generalized, frontally predominant, and were sporadic with an anterior-posterior lag. These discharges were stimulus-induced. Reactivity/Variability/Sleep: Reactivity and state changes were present; no clear stage II architecture. Focal Slowing: None. Interictal Epileptiform Abnormalities: None. Seizures/Events: None. Other: N/A. ECG: No notable ECG abnormalities were apparent. Monitoring Day 3: 05/11/2025 Posterior Activity: In the maximally awake state, posterior frequencies were symmetric consisting of 9 Hz activity without reactivity to eye opening. Background Activity: The background was symmetric and continuous consisting of predominantly normal voltage, alpha and theta frequencies; anterior-posterior organization was present with mild disorganization. Reactivity/Variability/Sleep: Reactivity and state changes were present; no clear stage II architecture. Focal Slowing: None. Interictal Epileptiform Abnormalities: None. Seizures/Events: None. Other: N/A. ECG: No notable ECG abnormalities were apparent. Monitoring Day 4: 05/12/2025 Posterior Activity: In the maximally awake state, posterior frequencies were symmetric consisting of 9 Hz activity without reactivity to eye opening. Background Activity: The background was symmetric and continuous consisting of predominantly normal voltage, alpha and theta frequencies; anterior-posterior organization was present. Reactivity/Variability/Sleep: Reactivity and state changes were present. There was well formed stage 2 sleep structures. Focal Slowing: None. Interictal Epileptiform Abnormalities: None. Seizures/Events: None. Other: N/A. ECG: No notable ECG abnormalities were apparent. Monitoring Day 5: 05/13/2025 Posterior Activity: In the maximally awake state, posterior frequencies were symmetric consisting of 9 Hz activity without reactivity to eye opening. Background Activity: The background was symmetric and continuous consisting of predominantly normal voltage, alpha and theta frequencies; anterior-posterior organization was present. Reactivity/Variability/Sleep: Reactivity and state changes were present. There was well formed stage 2 sleep structures. Focal Slowing: None. Interictal Epileptiform Abnormalities: None. Seizures/Events: None. Other: N/A. ECG: No notable ECG abnormalities were apparent. Monitoring Day 6: 05/14/2025 Posterior Activity: In the maximally awake state, posterior frequencies were symmetric consisting of 9 Hz activity without reactivity to eye opening. Background Activity: The background was symmetric and continuous consisting of predominantly normal voltage, alpha and theta frequencies; anterior-posterior organization was present. Reactivity/Variability/Sleep: Reactivity and state changes were present. There was well formed stage 2 sleep structures. Focal Slowing: None. Interictal Epileptiform Abnormalities: None. Seizures/Events: None. Other: N/A. ECG: No notable ECG abnormalities were apparent. DAILY IMPRESSIONS Monitoring Day 1: 05/09/2025. Moderate encephalopathy. Abundant GPD's with triphasic morphology was present. No seizures Monitoring Day 2: 05/10/2025 - Nonspecific, mild to moderate encephalopathy. The discharges with a triphasic morphology could be a nonspecific marker of encephalopathy or confer an increased risk of focal- or generalized-onset seizures. Their lag and relative suppression in the unstimulated state suggested the former. Monitoring Day 3: 05/11/2025 - Nonspecific, mild encephalopathy. Monitoring Day 4: 05/12/2025 - Normal interictal. Monitoring Day 5: 05/13/2025 - Normal interictal. Monitoring Day 6: 05/14/2025 - Normal interictal. REPORT LAST UPDATED: 05/14/2025 5:24 PM. For the duration of this recording, summaries were provided at least twice daily to the neurologist providing direct patient care. MD Olivia Galicia MD ABPN Epilepsy. [facility] Greg Sigala MD NEUROLOGY ORDERABLES Final Resu lt [facility] [id number] [id number], * Transfuse RBC's: (05/14/2025 2:19 PM EDT) Reena Villarreal MD BLOOD TRANSFUSION ORDERA BLES Final Result * ECHOCARDIOGRAM COMPREHENSIVE (05/14/2025 9:07 AM EDT) LV nova vol 3D 92.0 mL LV Diastolic Volume 90 mL LV sys vol 3D 39.0 mL LV Systolic Volume 32 mL IVS (F:0.6-0.9, M:0.6-1.0) 0.9 cm IVS Mean (F:0.6-0.9, M:0.6-1.0) 0.9 cm LVIDD (F:3.8-5.2, M:4.2-5.8) 4.6 cm LVIDD Mean (F:3.8-5.2, M:4.2-5.8) 4.6 cm LVIDS (F:2.2-3.5, M:2.5-4.0) 3.3 cm LVIDS (F:2.2-3.5, M:2.5-4.0) 3.3 cm LVOT diameter 2.0 cm LVOT diameter mean 2.0 cm LVOT mn grad mean 2.0 mmHg LVOT VTI MEAN 20.7 cm LVOT mn grad 2.0 mmHg LVOT VTI 20.7 cm LVOT peak lan 1.0 m/s LVOT peak lan mean 1.0 m/s PW (F:0.6-0.9, M:0.6-1.0) 0.9 cm PW Mean (F:0.6-0.9, M:0.6-1.0) 0.9 cm MV E' Lateral Velocity 9.25 cm/s MV E' Lateral Velocity Mean 9.25 cm/s MV E' Septal Velocity 6.85 cm/s MV E' Septal Velocity Mean 6.85 cm/s LA sup-inf (apical 2-ch view) 6.29 cm LA volume 56.3 mL RA area 11.8 cm2 RA 2D Volume 23.7 mL Sinuses of Valsalva 3.3 cm Sinuses of Valsalva Mean 3.3 cm Ascending aorta 3.6 cm Ascending aorta mean 3.6 cm Mr max lan 5.1 m/s Mr max lan mean 4.7 m/s E wave decelartion time 143 ms E wave decelartion time mean 143 ms MV Peak E-Wave 99.4 cm/s MV Peak E-Wave Mean 99.4 cm/s RVID d 2.8 cm RVID d Mean 2.8 cm RV Free wall pk S' 10.8 cm/s RV Free wall pk S' Mean 10.8 cm/s Tapse 1.7 cm Tapse Mean 1.7 cm TR Peak Lan 2.7 m/s Heart Rate 91 bpm BP Systolic 110 mmHg BP Diastolic 64 mmHg Height 66.00 inches Weight 151.00 lbs LV Mass Index (F:43-95, M:49-115) 77.6 g/m2 LA Volume Index (16-34) 31.7 mL/m2 LV Diastolic Volume Index (F:29-61, M:35-75) 50.7 mL/m2 LV Systolic Volume Index (F:8-24, M:11-31) 18.0 mL/m2 E/E' ratio 10.75 LVOT stroke volume 65 mL LVOT area 3.1 cm2 AV LVOT peak gradient 4.0 mmHg SVI 36 mL/m2 Ascending aorta Index 2.0 cm/m2 Sinuses of Valsalva Index 1.9 cm/m2 EF - 3D Echo 58 % LV mass 137.7 g Louis BP EF (55-75) 64 % LA Volume Index 13.4 mL/m2 E/E' Average 12.6 E/E' Septal 14.5 E/E' Lateral 10.7 LVOT SI 36.62 mL/m2 LV RWT 0.39 Left Ventricular Cardiac Index 3.3 L/min/m2 Left Ventricular Cardiac Output 5.9 L/min BSA 1.77 m2 TR Peak Gradient 29 mmHg GLS 13.0 % Est. RA pres 3 mmHg RVSP 32 mmHg PASP 32.2 mmHg Anatomical Region Laterality Modality Heart Ultrasound Narrative 05/14/2025 9:31 AM EDT Left ventricular systolic function is normal. The quantitative EF is 58% by 3D imaging, and 64% by 2D Louis biplane. Right ventricular systolic function is normal. There is moderate mitral regurgitation. There is no previous study for comparison in our system. Technical Details Overall the study quality was adequate. 3D echocardiographic imaging of left ventricle structure and function was performed demonstrating the following study findings. Left Ventricle The left ventricle is normal in size. Wall thickness is normal. Left ventricular systolic function is normal. The quantitative EF is 58% by 3D imaging, and 64% by 2D Louis biplane. Global longitudinal strain is -13.0%. No wall motion abnormalities are present. Diastolic function could not be accurately assessed. Stroke volume is normal. Right Ventricle The right ventricle is normal in size. Right ventricular systolic function is normal. Left Atrium Left atrial size is normal. Right Atrium Right atrial size is normal. Based on IVC diameter and collapse, right atrial pressure is estimated to be normal (3 mmHg). Mitral Valve The mitral valve is structurally normal. There is moderate mitral regurgitation. Tricuspid Valve The tricuspid valve is structurally normal. There is mild tricuspid regurgitation. The estimated right ventricular systolic pressure is normal at 32 mmHg. Aortic Valve The aortic valve is tricuspid. There is no aortic regurgitation or stenosis. Pulmonic Valve The pulmonic valve was not well visualized. There is no pulmonic regurgitation. Ascending Aorta The aortic root dimension is normal. Pericardium There is no pericardial effusion. Prior Study There is no previous study for comparison in our system. Jaclyn Hunter MD CV ECHO ORDERABLES Final Re sult * Prepare RBC's:Prepare in: Units; Number of Units: 1; Transfusion Indications: Hemoglobin less than 7 gm/dl or HCT less than 21% (05/14/2025 6:58 AM EDT) Units Ordered 1 05/14/2025 6:58 AM EDT 05/14/2025 6:58 AM EDT 05/14/2025 7:08 AM EDT Reena Villarreal MD BLOOD BANK PRODUCT ORDER PAT Final Result [facility] See Below * (ABNORMAL) Differential, Automated (For Add-On Orders to CBC ONLY) (05/14/2025 6:20 AM EDT) Neutrophils Auto 64.9 % 05/14/20 11:34 AM EDT [facility] Immature Granulocytes 0.7 % 05/14/2025 11:34 AM EDT [facility] Lymphocytes Auto 20.3 % 05/14/20 11:34 AM EDT [facility] Monocytes Auto 9.9 % 05/14/2025 11:34 AM EDT [facility] Eosinophils Auto 3.4 % 05/14/20 11:34 AM EDT [facility] Basophils Auto 0.8 % 05/14/2025 11:34 AM EDT [facility] Abs Neutrophils Auto 4.73 2.00 - 7.50 Thou/uL 05/14/2025 11:34 AM EDT [facility] Abs Immature Granulocytes 0.05 0.00 - 0.10 Thou/uL 05/14/2025 11:34 AM EDT [facility] Abs Lymphocytes Auto 1.48(L) 1.50 - 4.50 Thou/uL 05/14/2025 11:34 AM EDT [facility] Abs Monocytes Auto 0.72 0.20 - 1.50 Thou/uL 05/14/2025 11:34 AM EDT [facility] Abs Eosinophils Auto 0.25 0.00 - 0.70 Thou/uL 05/14/2025 11:34 AM EDT [facility] Abs Basophils Auto 0.06 0.00 - 0.20 Thou/uL 05/14/2025 11:34 AM EDT [facility] Blood specimen / Unknown 05/14/2025 6:20 AM EDT 05/14/2025 6:28 AM EDT us Calvin Lew MD LAB BLOOD [place] [address], [place] [address] * Triglycerides (05/14/2025 6:20 AM EDT) Triglycerides 88 <150 mg/dL 05/14/2025 6:59 AM EDT [facility] Blood Blood specimen / Unknown 05/14/2025 6:20 AM EDT 05/14/2025 6:28 AM EDT us Calvin Lew MD LAB BLOOD [place]AB[place] [address], [place] [address] * (ABNORMAL) Ferritin (05/14/2025 6:20 AM EDT) Ferritin 657(H) 30 - 400 ug/L 05/14/2025 6:59 AM EDT [facility] Blood Blood specimen / Unknown 05/14/2025 6:20 AM EDT 05/14/2025 6:28 AM EDT Calvin Lew MD LAB BLOOD ORDERABLES Final Result Performing Organization Address [facility] de Phone Number [address] [address], [address] [address] * (ABNORMAL) POCT Glucose, Fingerstick (05/13/2025 8:06 PM EDT) Only the most recent of34 resultswithin the time period is included. POC Glucose 102(H) 65 - 99 mg/dL 05/13/2025 8:07 PM EDT Blood specimen / Unknown 05/13/2025 8:06 PM EDT 05/13/2025 8:07 PM EDT Max Young MD POINT OF CARE TEST ORDERABLES F inal Result Performing Organization Address City/[facility] Co de Phone Number HOSPITAL LAB See Below * EEG 24 HOUR WITH VIDEO (05/13/2025 7:08 PM EDT) Narrative [facility] - 05/13/2025 1:40 PM EDT Laura Chaudhari MD 05/13/2025 1:41 PM ADULT INPATIENT CONTINUOUS VIDEO-EEG MONITORING (LTM) REPORT Facility: [facility] Patient and : Kia Phelps 1960 Date of Procedure: 05/13/2025 Admission Attending: Max Young MD Recording begun at 00:02 hrs on 05/09/25 and is ongoing continuously unless otherwise noted. CLINICAL INFORMATION: The patient is a 65 y.o. female undergoing continuous EEG to evaluate for spells concerning for seizures. SEIZURE MEDICATIONS: Keppra RECORDING CONDITIONS: Continuous VEEG monitoring was performed. Electrodes were applied according to the International 10-20 System. Data were obtained, stored, and interpreted according to ACNS guidelines (J Clin Neurophysiol 2006;23(2):85-183) utilizing referential montage recording, with reformatting to longitudinal, transverse bipolar, and referential montages as necessary for interpretation, along with digital/automated EEG analysis of [place] and Event detections. Patient tolerated procedure without issue. DESCRIPTION OF DAILY EEG AND EVENTS: Monitoring Day 1: 05/09/2025 Posterior Activity: Posterior dominant rhythm was briefly seen and consisted of high head reactive rhythm. Background Activity: The background was symmetric and continuous consisting of predominantly medium high voltage sharply contoured polymorphic delta and theta frequencies; anterior-posterior organization was absent. There is abundant 1 to 2 Hz generalized, bifrontal predominant periodic sharply contoured waveforms with triphasic more allergy (GPD's with triphasic morphology) Reactivity/Variability/Sleep: Reactivity and state changes were present; no clear stage II architecture. Focal Slowing: None. Interictal Epileptiform Abnormalities: None. Seizures/Events: None. ECG: No notable ECG abnormalities were apparent. ^^^ Dr. eBrman reviewed EEG until 15:20 hours, after which Dr. Chaudhari reviewed EEG. ^^^ Monitoring Day 2: 05/10/2025 Posterior Activity: In the maximally awake state, posterior frequencies were symmetric consisting of 9 Hz activity without reactivity to eye opening. Background Activity: The background was symmetric and continuous consisting of predominantly normal voltage, alpha and theta frequencies; anterior-posterior organization was present with mild disorganization. Frequent (at least 1 per minute but less than every 10 seconds) transients with a triphasic morphology were seen which were generalized, frontally predominant, and were sporadic with an anterior-posterior lag. These discharges were stimulus-induced. Reactivity/Variability/Sleep: Reactivity and state changes were present; no clear stage II architecture. Focal Slowing: None. Interictal Epileptiform Abnormalities: None. Seizures/Events: None. Other: N/A. ECG: No notable ECG abnormalities were apparent. Monitoring Day 3: 05/11/2025 Posterior Activity: In the maximally awake state, posterior frequencies were symmetric consisting of 9 Hz activity without reactivity to eye opening. Background Activity: The background was symmetric and continuous consisting of predominantly normal voltage, alpha and theta frequencies; anterior-posterior organization was present with mild disorganization. Reactivity/Variability/Sleep: Reactivity and state changes were present; no clear stage II architecture. Focal Slowing: None. Interictal Epileptiform Abnormalities: None. Seizures/Events: None. Other: N/A. ECG: No notable ECG abnormalities were apparent. Monitoring Day 4: 05/12/2025 Posterior Activity: In the maximally awake state, posterior frequencies were symmetric consisting of 9 Hz activity without reactivity to eye opening. Background Activity: The background was symmetric and continuous consisting of predominantly normal voltage, alpha and theta frequencies; anterior-posterior organization was present. Reactivity/Variability/Sleep: Reactivity and state changes were present. There was well formed stage 2 sleep structures. Focal Slowing: None. Interictal Epileptiform Abnormalities: None. Seizures/Events: None. Other: N/A. ECG: No notable ECG abnormalities were apparent. Monitoring Day 5: 05/13/2025 Posterior Activity: In the maximally awake state, posterior frequencies were symmetric consisting of 9 Hz activity without reactivity to eye opening. Background Activity: The background was symmetric and continuous consisting of predominantly normal voltage, alpha and theta frequencies; anterior-posterior organization was present. Reactivity/Variability/Sleep: Reactivity and state changes were present. There was well formed stage 2 sleep structures. Focal Slowing: None. Interictal Epileptiform Abnormalities: None. Seizures/Events: None. Other: N/A. ECG: No notable ECG abnormalities were apparent. DAILY IMPRESSIONS Monitoring Day 1: 05/09/2025. Moderate encephalopathy. Abundant GPD's with triphasic morphology was present. No seizures Monitoring Day 2: 05/10/2025 - Nonspecific, mild to moderate encephalopathy. The discharges with a triphasic morphology could be a nonspecific marker of encephalopathy or confer an increased risk of focal- or generalized-onset seizures. Their lag and relative suppression in the unstimulated state suggested the former. Monitoring Day 3: 05/11/2025 - Nonspecific, mild encephalopathy. Monitoring Day 4: 05/12/2025 - Normal interictal. Monitoring Day 5: 05/13/2025 - Normal interictal. REPORT LAST UPDATED: 05/13/2025 1:40 PM. For the duration of this recording, summaries were provided at least twice daily to the neurologist providing direct patient care. MD Olivia Galicia MD ABPN Epilepsy. [facility] us Greg Sigala MD NEUROLOGY ORDERABLES Final Resu lt [facility] [id number] [id number], [place] * Transfuse Platelets:Transfusion Indications: Plt count less than or equal to 50K and Pre or Post surgery or invasive procedure (05/13/2025 2:36 PM EDT) Calvin Lew MD BLOOD TRANSFUSION ORDERABL ES Final Result * Type and Screen (05/13/2025 8:15 AM EDT) ABO/Rh O POSITIVE 05/13/2025 10:21 AM EDT [facility] Antibody Screen NEGATIVE 05/13/2025 10:21 AM [facility] Specimen Expiration 05/16/2025 05/13/2025 10:21 AM [facility] Blood Bank Comment Second Sample needed for Blood Transfusion 05/13/2025 10:21 AM T [facility] Unit Number [id number] 05/14/2025 7:07 AM [facility] Blood Component Type LEUKOREDUCED RED CELLS 05/14/2025 7:07 AM [facility] Unit Division 00 05/14/2025 7:07 AM [facility] Unit Status ISSUED,FINAL 05/15/2025 12:20 AM [facility] Transfusion Status OK TO TRANSFUSE 05/14/2025 7:07 AM [facility] Crossmatch Result Electronically Compatible 05/14/2025 7:07 AM [facility] Blood Blood specimen / Unknown 05/13/2025 8:15 AM EDT 05/13/2025 9:28 AM EDT Comment:Blood Calvin Lew MD BLOOD BANK TEST ORDERABLES Final Result [facility]OSPITAL LAB See Below [address] [id number] * Prepare Platelets:Prepare in: Doses; Number of doses: 1; Transfusion Indications: Plt count less than or equal to 50K and Pre or Post surgery or invasive procedure (05/13/2025 7:32 AM EDT) Units Ordered 1 05/13/2025 7:32 AM EDT Unit Number [id number] 05/13/2025 12:03 PM EDT [facility] Blood Component Type Apheresis Platelets (7d) Irradiated Leukocytes Reduced - 1st container 05/13/2025 12:03 PM EDT [facility] Unit Division 00 05/13/2025 12:03 PM EDT [facility] Unit Status ISSUED,FINAL 05/14/2025 12:20 AM EDT [facility] Transfusion Status OK TO TRANSFUSE 05/13/2025 12:03 PM EDT [facility] 05/13/2025 7:32 AM EDT 05/13/2025 12:03 PM EDT us Calvin Lew MD BLOOD BANK PRODUCT ORDERAB LES Final Result [facility]OSPITAL LAB See Below [facility] [address] [place] [address] * EEG 24 HOUR WITH VIDEO (05/13/2025 6:31 AM EDT) Narrative [facility] - 05/12/2025 1:41 PM EDT Laura Chaudhari MD 05/12/2025 1:45 PM ADULT INPATIENT CONTINUOUS VIDEO-EEG MONITORING (LTM) REPORT Facility: [facility] Patient and : Kia Phelps 1960 Date of Procedure: 05/12/2025 Admission Attending: Max Young MD Recording begun at 00:02 hrs on 05/09/25 and is ongoing continuously unless otherwise noted. CLINICAL INFORMATION: The patient is a 65 y.o. female undergoing continuous EEG to evaluate for spells concerning for seizures. SEIZURE MEDICATIONS: Keppra RECORDING CONDITIONS: Continuous VEEG monitoring was performed. Electrodes were applied according to the International 10-20 System. Data were obtained, stored, and interpreted according to ACNS guidelines (J Clin Neurophysiol 2006;23(2):85-183) utilizing referential montage recording, with reformatting to longitudinal, transverse bipolar, and referential montages as necessary for interpretation, along with digital/automated EEG analysis of [place] and Event detections. Patient tolerated procedure without issue. DESCRIPTION OF DAILY EEG AND EVENTS: Monitoring Day 1: 05/09/2025 Posterior Activity: Posterior dominant rhythm was briefly seen and consisted of high head reactive rhythm. Background Activity: The background was symmetric and continuous consisting of predominantly medium high voltage sharply contoured polymorphic delta and theta frequencies; anterior-posterior organization was absent. There is abundant 1 to 2 Hz generalized, bifrontal predominant periodic sharply contoured waveforms with triphasic more allergy (GPD's with triphasic morphology) Reactivity/Variability/Sleep: Reactivity and state changes were present; no clear stage II architecture. Focal Slowing: None. Interictal Epileptiform Abnormalities: None. Seizures/Events: None. ECG: No notable ECG abnormalities were apparent. ^^^ Dr. eBrman reviewed EEG until 15:20 hours, after which Dr. Chaudhari reviewed EEG. ^^^ Monitoring Day 2: 05/10/2025 Posterior Activity: In the maximally awake state, posterior frequencies were symmetric consisting of 9 Hz activity without reactivity to eye opening. Background Activity: The background was symmetric and continuous consisting of predominantly normal voltage, alpha and theta frequencies; anterior-posterior organization was present with mild disorganization. Frequent (at least 1 per minute but less than every 10 seconds) transients with a triphasic morphology were seen which were generalized, frontally predominant, and were sporadic with an anterior-posterior lag. These discharges were stimulus-induced. Reactivity/Variability/Sleep: Reactivity and state changes were present; no clear stage II architecture. Focal Slowing: None. Interictal Epileptiform Abnormalities: None. Seizures/Events: None. Other: N/A. ECG: No notable ECG abnormalities were apparent. Monitoring Day 3: 05/11/2025 Posterior Activity: In the maximally awake state, posterior frequencies were symmetric consisting of 9 Hz activity without reactivity to eye opening. Background Activity: The background was symmetric and continuous consisting of predominantly normal voltage, alpha and theta frequencies; anterior-posterior organization was present with mild disorganization. Reactivity/Variability/Sleep: Reactivity and state changes were present; no clear stage II architecture. Focal Slowing: None. Interictal Epileptiform Abnormalities: None. Seizures/Events: None. Other: N/A. ECG: No notable ECG abnormalities were apparent. Monitoring Day 4: 05/12/2025 Posterior Activity: In the maximally awake state, posterior frequencies were symmetric consisting of 9 Hz activity without reactivity to eye opening. Background Activity: The background was symmetric and continuous consisting of predominantly normal voltage, alpha and theta frequencies; anterior-posterior organization was present. Reactivity/Variability/Sleep: Reactivity and state changes were present. There was well formed stage 2 sleep structures. Focal Slowing: None. Interictal Epileptiform Abnormalities: None. Seizures/Events: None. Other: N/A. ECG: No notable ECG abnormalities were apparent. DAILY IMPRESSIONS Monitoring Day 1: 05/09/2025. Moderate encephalopathy. Abundant GPD's with triphasic morphology was present. No seizures Monitoring Day 2: 05/10/2025 - Nonspecific, mild to moderate encephalopathy. The discharges with a triphasic morphology could be a nonspecific marker of encephalopathy or confer an increased risk of focal- or generalized-onset seizures. Their lag and relative suppression in the unstimulated state suggested the former. Monitoring Day 3: 05/11/2025 - Nonspecific, mild encephalopathy. Monitoring Day 4: 05/12/2025 - Normal interictal. REPORT LAST UPDATED: 05/12/2025 1:41 PM. For the duration of this recording, summaries were provided at least twice daily to the neurologist providing direct patient care. MD Olivia Galicia MD ABPN Epilepsy. [facility] Greg Sigala MD NEUROLOGY ORDERABLES Final Resu lt Performing Organization Address City/[facility]/ZIP Co de Phone Number [facility] [address] [place] [address], * ABO Confirmation (05/13/2025 4:49 AM EDT) ABO/Rh O POSITIVE 05/13/2025 12:01 PM EDT [facility] Blood specimen / Unknown 05/13/2025 4:49 AM EDT 05/13/2025 10:48 AM EDT Max Young MD BLOOD BANK TEST ORDERABLES Queenie l Result Performing Organization Address [facility]/ZIP Co de Phone Number [address] [address], [address] [address] * (ABNORMAL) HEPATIC FUNCTION PANEL (05/13/2025 4:49 AM EDT) Only the most recent of2 resultswithin the time period is included. Alkaline Phosphatase 197(H) 32 - 122 U/L 05/13/2025 7:44 AM EDT [facility] Aspartate Aminotrans (AST) 38 10 - 50 U/L 05/13/2025 7:44 AM EDT [facility] Alanine Aminotrans (ALT) 7(L) 10 - 50 U/L 05/13/2025 7:44 AM [facility] Bilirubin, Total 0.6 0.2 - 1.0 mg/dL 05/13/2025 7:44 AM EDT [facility] Protein, Total 5.4(L) 6.3 - 8.3 g/dL 05/13/2025 7:44 AM [facility] Albumin 3.0(L) 3.4 - 4.8 g/dL 05/13/2025 7:44 AM [facility] Bilirubin, Direct 0.4(H) 0 - 0.2 mg/dL 05/13/2025 7:44 AM [facility] Globulin 2.4 1.5 - 3.9 g/dL 05/13/2025 7:44 AM [facility] Albumin/Globulin Ratio 1.3 1.0 - 3.0 Ratio 05/13/2025 7:44 AM [facility] 05/13/2025 4:49 AM EDT 05/13/2025 5:52 AM EDT Calvin Lew MD LAB BLOOD ORDERABLES Final Result [address] [address], [address] [address] * MRI Brain w w/o contrast (05/12/2025 2:49 PM EDT) Anatomical Region Laterality Modality Head Magnetic Resonan ce 05/12/2025 1:47 PM EDT Impressions 05/12/2025 2:58 PM EDT There is no evidence of an acute infarct, hemorrhage, or mass. There is no abnormal parenchymal or meningeal enhancement. Narrative 05/12/2025 2:58 PM EDT EXAMINATION: MRI BRAIN W W/O CONTRAST CLINICAL INDICATION: Female, 65 years old. altered mental status TECHNIQUE: Multiplanar, multisequence MRI of the brain. CONTRAST: IV contrast administered per protocol COMPARISON: None available FINDINGS: Brain: There is no restricted diffusion to suggest a recent infarct. There is no hemosiderin susceptibility effect to suggest prior hemorrhage. There is a mild amount of abnormal T2 prolongation within the white matter which is non-specific but most often seen in the setting of chronic white matter disease. There is global cerebral volume loss with enlargement of the ventricles and extra-axial spaces which is appropriate for age. There is no hydrocephalus. There is no midline shift. There is no abnormal parenchymal or meningeal enhancement. 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 Orbits: Normal. Pituitary: The sella and para-sellar structures are normal. Paranasal Sinuses, Mastoids, and Middle Ears: Well aerated. Vasculature: There are normal flow voids in the carotid arteries and the vertebrobasilar system. Osseous structures: The skull base and calvarium are normal in appearance. Procedure Note Rashard Camejo MD - 05/12/2025 EXAMINATION: MRI BRAIN W W/O CONTRAST CLINICAL INDICATION: Female, 65 years old. altered mental status TECHNIQUE: Multiplanar, multisequence MRI of the brain. CONTRAST: IV contrast administered per protocol COMPARISON: None available FINDINGS: Brain: There is no restricted diffusion to suggest a recent infarct. There is no hemosiderin susceptibility effect to suggest prior hemorrhage. There is a mild amount of abnormal T2 prolongation within the white matter which is non-specific but most often seen in the setting of chronic white matter disease. There is global cerebral volume loss with enlargement of the ventricles and extra-axial spaces which is appropriate for age. There is no hydrocephalus. There is no midline shift. There is no abnormal parenchymal or meningeal enhancement. 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 Orbits: Normal. Pituitary: The sella and para-sellar structures are normal. Paranasal Sinuses, Mastoids, and Middle Ears: Well aerated. Vasculature: There are normal flow voids in the carotid arteries and the vertebrobasilar system. Osseous structures: The skull base and calvarium are normal in appearance. IMPRESSION: There is no evidence of an acute infarct, hemorrhage, or mass. There is no abnormal parenchymal or meningeal enhancement. Max Young MD IMG MRI ORDERABLES Final Result * EEG - Long-term monitoring (05/11/2025 3:26 PM EDT) Narrative [facility] - 05/11/2025 3:26 PM EDT Laura Chaudhari MD 05/11/2025 3:28 PM ADULT INPATIENT CONTINUOUS VIDEO-EEG MONITORING (LTM) REPORT Facility: [facility] Patient and : Kia Phelps 1960 Date of Procedure: 05/11/2025 Admission Attending: Max Young MD Recording begun at 00:02 hrs on 05/09/25 and is ongoing continuously unless otherwise noted. CLINICAL INFORMATION: The patient is a 65 y.o. female undergoing continuous EEG to evaluate for spells concerning for seizures. SEIZURE MEDICATIONS: Keppra RECORDING CONDITIONS: Continuous VEEG monitoring was performed. Electrodes were applied according to the International 10-20 System. Data were obtained, stored, and interpreted according to ACNS guidelines (J Clin Neurophysiol 2006;23(2):85-183) utilizing referential montage recording, with reformatting to longitudinal, transverse bipolar, and referential montages as necessary for interpretation, along with digital/automated EEG analysis of [place] and Event detections. Patient tolerated procedure without issue. DESCRIPTION OF DAILY EEG AND EVENTS: Monitoring Day 1: 05/09/2025 Posterior Activity: Posterior dominant rhythm was briefly seen and consisted of high head reactive rhythm. Background Activity: The background was symmetric and continuous consisting of predominantly medium high voltage sharply contoured polymorphic delta and theta frequencies; anterior-posterior organization was absent. There is abundant 1 to 2 Hz generalized, bifrontal predominant periodic sharply contoured waveforms with triphasic more allergy (GPD's with triphasic morphology) Reactivity/Variability/Sleep: Reactivity and state changes were present; no clear stage II architecture. Focal Slowing: None. Interictal Epileptiform Abnormalities: None. Seizures/Events: None. ECG: No notable ECG abnormalities were apparent. ^^^ Dr. Berman reviewed EEG until 15:20 hours, after which Dr. Chaudhari reviewed EEG. ^^^ Monitoring Day 2: 05/10/2025 Posterior Activity: In the maximally awake state, posterior frequencies were symmetric consisting of 9 Hz activity without reactivity to eye opening. Background Activity: The background was symmetric and continuous consisting of predominantly normal voltage, alpha and theta frequencies; anterior-posterior organization was present with mild disorganization. Frequent (at least 1 per minute but less than every 10 seconds) transients with a triphasic morphology were seen which were generalized, frontally predominant, and were sporadic with an anterior-posterior lag. These discharges were stimulus-induced. Reactivity/Variability/Sleep: Reactivity and state changes were present; no clear stage II architecture. Focal Slowing: None. Interictal Epileptiform Abnormalities: None. Seizures/Events: None. Other: N/A. ECG: No notable ECG abnormalities were apparent. Monitoring Day 3: 05/11/2025 Posterior Activity: In the maximally awake state, posterior frequencies were symmetric consisting of 9 Hz activity without reactivity to eye opening. Background Activity: The background was symmetric and continuous consisting of predominantly normal voltage, alpha and theta frequencies; anterior-posterior organization was present with mild disorganization. Reactivity/Variability/Sleep: Reactivity and state changes were present; no clear stage II architecture. Focal Slowing: None. Interictal Epileptiform Abnormalities: None. Seizures/Events: None. Other: N/A. ECG: No notable ECG abnormalities were apparent. DAILY IMPRESSIONS Monitoring Day 1: 05/09/2025. Moderate encephalopathy. Abundant GPD's with triphasic morphology was present. No seizures Monitoring Day 2: 05/10/2025 - Nonspecific, mild to moderate encephalopathy. The discharges with a triphasic morphology could be a nonspecific marker of encephalopathy or confer an increased risk of focal- or generalized-onset seizures. Their lag and relative suppression in the unstimulated state suggested the former. Monitoring Day 3: 05/11/2025 - Nonspecific, mild encephalopathy. REPORT LAST UPDATED: 05/11/2025 3:26 PM. For the duration of this recording, summaries were provided at least twice daily to the neurologist providing direct patient care. MD Olivia Galicia MD ABPN Epilepsy. [facility] [place] [facility] Greg Sigala MD NEUROLOGY ORDERABLES Final Resu lt [facility] [address] [place] [address], [place] * XR Abdomen 1 view (05/11/2025 9:59 AM EDT) Only the most recent of2 resultswithin the time period is included. Anatomical Region Laterality Modality Abdomen Computed Radiogr aphy 05/11/2025 9:12 AM EDT Impressions 05/11/2025 1:02 PM EDT Dobbhoff feeding tube tip projects in the region of the gastric pylorus. Narrative 05/11/2025 1:02 PM EDT EXAMINATION: XR ABDOMEN KUB CLINICAL INDICATION: ?dht tube placement COMPARISON: 05/10/2025 TECHNIQUE: AP view of the abdomen. FINDINGS: Dobbhoff feeding tube tip projects in the region of the gastric pylorus. No high-grade obstruction. Mild scoliotic curvature and degenerative changes in the spine. There is a pigtail catheter in the right mid abdomen Procedure Note Rashard Rojo MD - 05/11/2025 EXAMINATION: XR ABDOMEN KUB CLINICAL INDICATION: ?dht tube placement COMPARISON: 05/10/2025 TECHNIQUE: AP view of the abdomen. FINDINGS: Dobbhoff feeding tube tip projects in the region of the gastric pylorus. No high-grade obstruction. Mild scoliotic curvature and degenerative changes in the spine. There is a pigtail catheter in the right mid abdomen IMPRESSION: Dobbhoff feeding tube tip projects in the region of the gastric pylorus. Jaclyn Hunter MD IMG DIAGNOSTIC IMAGING [place] Final Result * EEG 24 HOUR WITH VIDEO (05/11/2025 1:39 AM EDT) Narrative [facility] - 05/10/2025 11:31 AM EDT Laura Chaudhari MD 05/10/2025 11:35 AM ADULT INPATIENT CONTINUOUS VIDEO-EEG MONITORING (LTM) REPORT Facility: [facility] Patient and : Kia Phelps 1960 Date of Procedure: 05/10/2025 Admission Attending: Max Young MD Recording begun at 00:02 hrs on 05/09/25 and is ongoing continuously unless otherwise noted. CLINICAL INFORMATION: The patient is a 65 y.o. female undergoing continuous EEG to evaluate for spells concerning for seizures. SEIZURE MEDICATIONS: Keppra RECORDING CONDITIONS: Continuous VEEG monitoring was performed. Electrodes were applied according to the International 10-20 System. Data were obtained, stored, and interpreted according to ACNS guidelines (J Clin Neurophysiol 2006;23(2):85-183) utilizing referential montage recording, with reformatting to longitudinal, transverse bipolar, and referential montages as necessary for interpretation, along with digital/automated EEG analysis of [place] and Event detections. Patient tolerated procedure without issue. DESCRIPTION OF DAILY EEG AND EVENTS: Monitoring Day 1: 05/09/2025 Posterior Activity: Posterior dominant rhythm was briefly seen and consisted of high head reactive rhythm. Background Activity: The background was symmetric and continuous consisting of predominantly medium high voltage sharply contoured polymorphic delta and theta frequencies; anterior-posterior organization was absent. There is abundant 1 to 2 Hz generalized, bifrontal predominant periodic sharply contoured waveforms with triphasic more allergy (GPD's with triphasic morphology) Reactivity/Variability/Sleep: Reactivity and state changes were present; no clear stage II architecture. Focal Slowing: None. Interictal Epileptiform Abnormalities: None. Seizures/Events: None. ECG: No notable ECG abnormalities were apparent. ^^^ Dr. Berman reviewed EEG until 15:20 hours, after which Dr. Chaudhari reviewed EEG. ^^^ Monitoring Day 2: 05/10/2025 Posterior Activity: In the maximally awake state, posterior frequencies were symmetric consisting of 9 Hz activity without reactivity to eye opening. Background Activity: The background was symmetric and continuous consisting of predominantly normal voltage, alpha and theta frequencies; anterior-posterior organization was present with mild disorganization. Frequent (at least 1 per minute but less than every 10 seconds) transients with a triphasic morphology were seen which were generalized, frontally predominant, and were sporadic with an anterior-posterior lag. These discharges were stimulus-induced. Reactivity/Variability/Sleep: Reactivity and state changes were present; no clear stage II architecture. Focal Slowing: None. Interictal Epileptiform Abnormalities: None. Seizures/Events: None. Other: N/A. ECG: No notable ECG abnormalities were apparent. DAILY IMPRESSIONS Monitoring Day 1: 05/09/2025. Moderate encephalopathy. Abundant GPD's with triphasic morphology was present. No seizures Monitoring Day 2: 05/10/2025 - Nonspecific, mild to moderate encephalopathy. The discharges with a triphasic morphology could be a nonspecific marker of encephalopathy or confer an increased risk of focal- or generalized-onset seizures. Their lag and relative suppression in the unstimulated state suggested the former. REPORT LAST UPDATED: 05/10/2025 11:31 AM. For the duration of this recording, summaries were provided at least twice daily to the neurologist providing direct patient care. MD Olivia Galicia MD ABPN Epilepsy. [facility] Greg Sigala MD NEUROLOGY ORDERABLES Final Resu lt Performing Organization Address City/[facility]/ZIP Co de Phone Number [facility] [address] [place] [address], * (ABNORMAL) Transferrin (05/10/2025 8:10 PM EDT) Transferrin 57(L) 200 - 360 mg/dL 05/10/2025 8:41 PM EDT [facility] Blood Blood specimen / Unknown 05/10/2025 8:10 PM EDT 05/10/2025 8:14 PM EDT Jaclyn Hunter MD LAB BLOOD ORDERABLES Final Result Performing Organization Address [facility] [place] [address], [place] [address] * FEEDING TUBE PLACEMENT (NASODUODENAL/NASOJEJUNAL) (05/10/2025 1:17 PM EDT) Narrative Denzel Solis RN - 05/10/2025 1:17 PM EDT Denzel Solis RN 05/10/2025 1:21 PM FEEDING TUBE PLACEMENT (NASODUODENAL/NASOJEJUNAL) Date/Time: 05/10/2025 1:17 PM Performed by: Denzel Solis RN Authorized by: Priscilla Subramanian MD Consent: Verbal consent not obtained. Written consent obtained Risks and benefits: risks, benefits and alternatives were discussed Consent given by: guardian Patient understanding: patient states understanding of the procedure being performed Patient consent: the patient's understanding of the procedure matches consent given Procedure consent: procedure consent matches procedure scheduled Relevant documents: relevant documents present and verified Test results: test results available and properly labeled Imaging studies: imaging studies available Required items: required blood products, implants, devices, and special equipment available Patient identity confirmed: verbally with patient and hospital-assigned identification number Time out: Immediately prior to procedure a time out was called to verify the correct patient, procedure, equipment, technical support technician and site/side marked as required. Preparation: Patient was prepped and draped in the usual sterile fashion. Local anesthesia used: no Anesthesia: Local anesthesia used: no Sedation: Patient sedated: no Patient tolerance: patient tolerated the procedure well with no immediate complications us Priscilla Moris GIANG PROCEDURE/MINOR SURGICAL PERFORM PAT Final Result * US Abdomen-Limited (05/10/2025 6:54 AM EDT) Anatomical Region Laterality Modality Abdomen Ultrasound 05/10/2025 5:1 5 AM EDT Impressions 05/11/2025 8:15 PM EDT Heterogeneously increased echotexture of the liver with a nodular appearing contour seen on ultrasound. Findings are suspicious for hepatic steatosis with possible underlying cirrhosis. Further evaluation with elastography may be considered as clinically warranted. Narrative 05/11/2025 8:15 PM EDT EXAMINATION: US ABDOMEN LIMITED (RIGHT UPPER QUADRANT) CLINICAL INFORMATION: Concern for cirrhosis COMPARISON: CT chest and pelvis 05/09/2025 TECHNIQUE: Real-time imaging of the right upper quadrant abdominal viscera. FINDINGS: The examination was somewhat limited by the patient's inability to breath-hold. LIVER: The liver measures up to 16.5 cm in the coronal plane. The liver demonstrates a heterogeneously increased echotexture with a nodular appearing contour on the linear transducer. No focal liver lesion. No intrahepatic biliary duct dilatation. GALLBLADDER: Status post cholecystectomy. COMMON BILE DUCT: Normal in caliber measuring 0.5 cm in diameter. PANCREAS: The visualized pancreatic head and body are normal in appearance. The remainder of the pancreas is obscured from visualization by the overlying bowel gas. RIGHT KIDNEY: No hydronephrosis. No renal calculi or focal parenchymal lesions. The kidney measures 11.1 cm in maximum dimension Procedure Note Wood Alvarez MD - 05/11/2025 EXAMINATION: US ABDOMEN LIMITED (RIGHT UPPER QUADRANT) CLINICAL INFORMATION: Concern for cirrhosis COMPARISON: CT chest and pelvis 05/09/2025 TECHNIQUE: Real-time imaging of the right upper quadrant abdominal viscera. FINDINGS: The examination was somewhat limited by the patient's inability to breath-hold. LIVER: The liver measures up to 16.5 cm in the coronal plane. The liver demonstrates a heterogeneously increased echotexture with a nodular appearing contour on the linear transducer. No focal liver lesion. No intrahepatic biliary duct dilatation. GALLBLADDER: Status post cholecystectomy. COMMON BILE DUCT: Normal in caliber measuring 0.5 cm in diameter. PANCREAS: The visualized pancreatic head and body are normal in appearance. The remainder of the pancreas is obscured from visualization by the overlying bowel gas. RIGHT KIDNEY: No hydronephrosis. No renal calculi or focal parenchymal lesions. The kidney measures 11.1 cm in maximum dimension IMPRESSION: Heterogeneously increased echotexture of the liver with a nodular appearing contour seen on ultrasound. Findings are suspicious for hepatic steatosis with possible underlying cirrhosis. Further evaluation with elastography may be considered as clinically warranted. Priscilla Subramanian MD [facility] [place] ORDERABLES Final Result * Pathology Smear Review, Whole Blood (05/10/2025 6:20 AM EDT) Pathology Comment Smear review: 05/11/2025 1:30 AM EDT [facility] Comment: Anemia and thrombocytopenia--smear not diagnostic of etiology. Honor cells: consider electrolyte imbalance vs artifact. Junior Dominguez MD ([facility]) Blood specimen / Unknown 05/10/2025 6:20 AM EDT 05/10/2025 6:25 AM EDT Priscilla Subramanian MD PATHOLOGY/CYTOLOGY ORDERABLES Fi nal Result [address] [address], [address] [address] * EEG 24 HOUR WITH VIDEO (05/10/2025 3:58 AM EDT) Narrative [facility] - 05/09/2025 5:20 AM EDT Olivia Berman MD 05/09/2025 3:23 PM ADULT INPATIENT CONTINUOUS VIDEO-EEG MONITORING (LTM) REPORT Facility: [facility] Patient and : Kia Phelps 1960 Date of Procedure: 05/09/2025 Admission Attending: Max Young MD Recording begun at 00:02 hrs on 05/09/25 and is ongoing continuously unless otherwise noted. CLINICAL INFORMATION: The patient is a 65 y.o. female undergoing continuous EEG to evaluate for spells concerning for seizures. SEIZURE MEDICATIONS: Keppra RECORDING CONDITIONS: Continuous VEEG monitoring was performed. Electrodes were applied according to the International 10-20 System. Data were obtained, stored, and interpreted according to ACNS guidelines (J Clin Neurophysiol 2006;23(2):85-183) utilizing referential montage recording, with reformatting to longitudinal, transverse bipolar, and referential montages as necessary for interpretation, along with digital/automated EEG analysis of [place] and Event detections. Patient tolerated procedure without issue. DESCRIPTION OF DAILY EEG AND EVENTS: Monitoring Day 1: 05/09/2025 Posterior Activity: Posterior dominant rhythm was briefly seen and consisted of high head reactive rhythm. Background Activity: The background was symmetric and continuous consisting of predominantly medium high voltage sharply contoured polymorphic delta and theta frequencies; anterior-posterior organization was absent. There is abundant 1 to 2 Hz generalized, bifrontal predominant periodic sharply contoured waveforms with triphasic more allergy (GPD's with triphasic morphology) Reactivity/Variability/Sleep: Reactivity and state changes were present; no clear stage II architecture. Focal Slowing: None. Interictal Epileptiform Abnormalities: None. Seizures/Events: None. ECG: No notable ECG abnormalities were apparent. ^^^ Dr. Berman reviewed EEG until 15:20 hours, after which Dr. Chaudhari reviewed EEG. ^^^ DAILY IMPRESSIONS Monitoring Day 1: 05/09/2025. Moderate encephalopathy. Abundant GPD's with triphasic morphology was present. No seizures REPORT LAST UPDATED: 05/09/2025 5:20 AM. For the duration of this recording, summaries were provided at least twice daily to the neurologist providing direct patient care. Olivia Berman MD ABPN Epilepsy. [facility] [place] [facility] Greg Sigala MD NEUROLOGY ORDERABLES Edited Res ult - Final [facility] [address] [id number], [place] * (ABNORMAL) Prealbumin (05/09/2025 5:45 PM EDT) Prealbumin 6(L) 20 - 40 mg/dL 05/09/2025 7:10 PM EDT [facility] Blood Blood specimen / Unknown 05/09/2025 5:45 PM EDT 05/09/2025 6:07 PM EDT us Priscilla Subramanian MD LAB BLOOD ORDERABLES Final Resul t Performing Organization Address City/[facility]/ZIP Co de Phone Number [address] [address], [address] [address] * (ABNORMAL) Folate Level (05/09/2025 5:45 PM EDT) Folate, Serum 4.6(L) >7.2 ng/mL 05/09/2025 7:24 PM EDT [facility] Blood Blood specimen / Unknown 05/09/2025 5:45 PM EDT 05/09/2025 6:07 PM EDT us Priscilla Subramanian MD LAB BLOOD ORDERABLES Final Resul t Performing Organization Address [facility]/ZIP Co de Phone Number [address] [address], [address] [address] * Vitamin B12 (05/09/2025 5:45 PM EDT) Vitamin B12 772 243 - 894 pg/mL 05/09/2025 7:10 PM EDT [facility] Blood Blood specimen / Unknown 05/09/2025 5:45 PM EDT 05/09/2025 6:07 PM EDT us Priscilla Subramanian MD LAB BLOOD ORDERABLES Final Resul t Performing Organization Address City/[facility]/ZIP Co de Phone Number [address] [address], [address] [place] [address] * Blood Culture (05/09/2025 10:23 AM EDT) Only the most recent of2 resultswithin the time period is included. Culture Sterile after 5 days 05/14/2025 3:10 PM EDT [facility] Blood Blood specimen / Unknown 05/09/2025 10:23 AM EDT 05/09/2025 11:30 AM EDT Comment:Blood us Priscilla Moris GIANG LAB BLOOD ORDERABLES Final Resul t [facility] [address] [place] [address], * Procalcitonin (05/09/2025 10:20 AM EDT) Procalcitonin 0.28 <0.51 ng/mL 05/09/2025 11:37 AM EDT [facility] Comment: New Reference Range for Procalcitonin (NOTE) Procalcitonin (PCT) Guided Antibiotic Management for Respiratory Infection Initial PCT interpretation: < 0.25 ng/mL: Antibiotics NOT likely needed (bacterial etiology very unlikely). 0.26 - 0.50 ng/mL: Antibiotics are NOT likely needed unless clinical concern for infection (bacterial etiology unlikely). >0.50 ng/mL: Antibiotics likely needed (bacterial etiology likely). Repeat PCT interpretation: Initial PCT < 5 ng/mL: Consider stopping antibiotics when PCT < 0.25 ng/mL. Initial PCT > 5 ng/mL: Consider stopping antibiotics when 80% reduction in PCT from initial value or PCT < 0.25 ng/mL. The above interpretative values are not appropriate for non-respiratory infectious diagnostics Blood Blood specimen / Unknown 05/09/2025 10:20 AM EDT 05/09/2025 11:06 AM EDT us Dieter Molina MD LAB BLOOD ORDERABLES Final Resu lt Performing Organization Address [facility] Co de Phone Number [address] [address], [address] [address] * Nasal MRSA Screen, PCR (05/09/2025 10:20 AM EDT) MRSA Result Not Detected Not Detected 5:21 PM EDT [facility] Comment:Performed by the Xpe rt MRSA NxG Assay Swab, Anterior Nares Specimen from nose / Unknown 05/09/2025 10:20 AM EDT 05/09/2025 12:38 PM EDT Dieter Molina MD MICROBIOLOGY - GENERAL ORDERABL ES Final Result Performing Organization Address [facility] [place] [address], [address] [address] * Heparin PF4 Ab Screen Reflex Serotonin Release Assay (05/09/2025 9:10 AM EDT) Heparin PF4 Antibody Negative Negative 05/09/2025 11:20 AM EDT [facility] Comment:Negative Screen, ref destinee testing not indicated. Blood Blood specimen / Unknown 05/09/2025 9:10 AM EDT 05/09/2025 9:34 AM EDT Priscilla Subramanian MD LAB BLOOD ORDERABLES Final Resul t Performing Organization Address [facility] Co de Phone Number [address] [address], [address] [address] * Haptoglobin (05/09/2025 9:10 AM EDT) Haptoglobin 65 30 - 200 mg/dL 05/09/2025 10:09 AM EDT [facility] Blood Blood specimen / Unknown 05/09/2025 9:10 AM EDT 05/09/2025 9:34 AM EDT Priscilla Subramanian MD LAB BLOOD ORDERABLES Final Resul t Performing Organization Address [facility] Co de Phone Number [address] [address], [address] [address] * (ABNORMAL) proBNP, N-terminal (05/09/2025 3:00 AM EDT) proBNP, N-terminal 41,316(H) <125 pg/mL 05/09/2025 4:11 AM EDT [facility] Blood Blood specimen / Unknown 05/09/2025 3:00 AM EDT 05/09/2025 3:35 AM EDT Max Young MD LAB BLOOD ORDERABLES Final Resu lt Performing Organization Address [facility] Co de Phone Number [address] [address], [address] [address] * CTA Chest for P.E. (05/09/2025 2:26 AM EDT) Anatomical Region Laterality Modality Chest Computed Tomogra phy 05/09/2025 2:13 AM EDT Impressions 05/09/2025 9:47 AM EDT 1. No evidence of acute gastrointestinal bleed. 2. No evidence of pulmonary embolism. 3. Multifocal groundglass opacities with internal bronchiectatic changes in the lungs bilaterally. Infectious/inflammatory etiologies likely. Consider repeat nonemergent CT in 3-6 months for further evaluation. 4. Moderate left and small right pleural effusions with associated atelectasis. 5. Redemonstration of wound in the lower ventral abdominal wall with associated drainage tract containing high density material present on noncontrast portion, likely related to previous exam. 6. Similar small hyperdense collection superior to the herniated small bowel without rim enhancement or associated gas, possibly representing resolving abscess/phlegmon. 7. Hepatic steatosis with nodular contour liver capsule, suggestive of cirrhosis. 8. Percutaneous cholecystectomy tube remains in place with decompressed gallbladder. 9. Nonobstructive punctate right renal calculi. Interpreted by: Evin Elise MD [employer] I personally reviewed the images and the resident's preliminary report and made the MINOR addendum above ([email or web address]). Narrative 05/09/2025 9:47 AM EDT EXAMINATION: CTA OF THE CHEST, ABDOMEN, AND PELVIS WITH AND WITHOUT CONTRAST CLINICAL INFORMATION: 65 years old Female with tachycardia, lactic acidosis COMPARISON: CT abdomen and pelvis 04/23/2025 CT chest 08/18/2016 DESCRIPTION: Initial noncontrast localizing eligibility examiner images were obtained. Timing boluses at the level of the aortic arch and iliac arteries were calculated. Subsequently, arterial phase multidetector volumetric imaging was performed through the chest, abdomen, and pelvis following the administration of 80 mL Omnipaque 350 intravenous contrast. No contrast reaction reported Sagittal and coronal reformatted images were obtained on the technologist workstation. After extensive post-processing on a dedicated 3-D workstation, 3-D reformatted images were uploaded to PACS and reviewed as well. This CT examination was performed using dose optimization techniques as appropriate, variously including the following: *Automated exposure control *Adjustment of mA and/or kV according to patient size (this includes techniques or standardized protocols for targeted exams where dose is matched to indication/reason for exam; i.e. extremities or head) *Use of iterative reconstruction technique Total exam dose-length product 916.27 mGy-cm FINDINGS: VASCULAR: CHEST VASCULAR: THORACIC AORTA: No evidence of dissection, aneurysm, or traumatic aortic injury. Classic 3 vessel branching pattern of the aortic arch. AORTIC ISTHMUS: Normal. PULMONARY ARTERIES: No evidence of central or segmental pulmonary embolus. Mildly dilated pulmonary pulmonary trunk measuring 3.2 cm. CORONARY ARTERY CALCIFICATIONS: Present - mild. ABDOMINAL VASCULAR: CELIAC TRUNK: The celiac trunk and its branches opacify normally without evidence of dissection, obstruction, or flow-limiting stenosis. MESENTERIC ARTERIES: The superior mesenteric artery and inferior mesenteric artery are patent. RENAL ARTERIES: The single renal arteries bilaterally are patent proximally. No hemodynamically significant stenosis. INFRARENAL ABDOMINAL AORTA: Mild mixed atherosclerosis of the infrarenal abdominal aorta without evidence of dissection. COMMON ILIAC ARTERIES: No hemodynamically significant stenosis. INTERNAL ILIAC ARTERIES: Patent. VENOUS STRUCTURES: The inferior vena cava and portal venous system are without demonstrated abnormalities. NONVASCULAR: CHEST AND ABDOMINAL WALL: Unremarkable chest wall. Redemonstrated right lower quadrant ostomy with similar parastomal herniation of fat and nonobstructed small bowel. Redemonstration of wound in the lower ventral abdominal wall with associated drainage tract containing high density material present on noncontrast portion, likely related to previous exam. Moderate diffuse anasarca with large amount of edema associated bilateral flanks. Similar small hyperdense collection superior to the herniated small bowel without definitive rim enhancement or associated gas, possibly representing resolving abscess/phlegmon. AXILLA: No lymphadenopathy. LUNGS: Multifocal groundglass opacities with internal bronchiectatic changes including a 2.6 cm opacity in the right upper lobe (series 304, image 107), along with a 1.6 cm in the right middle and left upper lobe. Partial atelectasis of the left lower lobe, possibly compressive due to adjacent pleural effusion. PLEURA/PERICARDIUM: Moderate layering left pleural effusion which extends to the lung apices, small right pleural effusion with partially loculated component along the right major fissure. MEDIASTINUM: Left IJ CVC terminates at cavoatrial junction. Central vascular structures are unremarkable. No hilar or mediastinal lymphadenopathy. LIVER AND BILIARY TREE: Hepatic steatosis with nodular contour liver capsule. No intrahepatic biliary ductal dilation. No suspicious liver lesions. Percutaneous cholecystectomy tube remains in place with decompressed gallbladder. No suspicious liver lesions. PANCREAS: Unremarkable. SPLEEN: Unremarkable. ADRENAL GLANDS: Unremarkable. KIDNEYS AND URETERS: The kidneys are normal in size, shape, and attenuation. No hydronephrosis or hydroureter. Nonobstructive punctate right renal calculi again seen. Redemonstration of 9 mm hypoattenuating cystic lesion in the right kidney measuring approximately 100 HU and likely represents a benign proteinaceous/hemorrhagic cysts which does not require dedicated follow-up. BLADDER: Decompressed limiting evaluation. GASTROINTESTINAL TRACT: Stomach is non-dilated. Lack of oral contrast limits evaluation of bowel. 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 No dilated loops of small bowel. No contrast extravasation or pooling within the gastrointestinal lumen. LYMPH NODES: No bulky lymphadenopathy. PELVIC VISCERA: Unremarkable PERITONEAL/RETROPERITONEAL: Grossly similar degree of diffuse mesenteric fat stranding. No definitive focal collection within the abdomen is to suggest intra-abdominal abscess or hematoma. OSSEOUS STRUCTURES: No acute osseous findings. Procedure Note Azucena Zaman MD - 05/09/2025 EXAMINATION: CTA OF THE CHEST, ABDOMEN, AND PELVIS WITH AND WITHOUT CONTRAST CLINICAL INFORMATION: 65 years old Female with tachycardia, lactic acidosis COMPARISON: CT abdomen and pelvis 04/23/2025 CT chest 08/18/2016 DESCRIPTION: Initial noncontrast localizing eligibility examiner images were obtained. Timing boluses at the level of the aortic arch and iliac arteries were calculated. Subsequently, arterial phase multidetector volumetric imaging was performed through the chest, abdomen, and pelvis following the administration of 80 mL Omnipaque 350 intravenous contrast. No contrast reaction reported Sagittal and coronal reformatted images were obtained on the technologist workstation. After extensive post-processing on a dedicated 3-D workstation, 3-D reformatted images were uploaded to PACS and reviewed as well. This CT examination was performed using dose optimization techniques as appropriate, variously including the following: *Automated exposure control *Adjustment of mA and/or kV according to patient size (this includes techniques or standardized protocols for targeted exams where dose is matched to indication/reason for exam; i.e. extremities or head) *Use of iterative reconstruction technique Total exam dose-length product 916.27 mGy-cm FINDINGS: VASCULAR: CHEST VASCULAR: THORACIC AORTA: No evidence of dissection, aneurysm, or traumatic aortic injury. Classic 3 vessel branching pattern of the aortic arch. AORTIC ISTHMUS: Normal. PULMONARY ARTERIES: No evidence of central or segmental pulmonary embolus. Mildly dilated pulmonary pulmonary trunk measuring 3.2 cm. CORONARY ARTERY CALCIFICATIONS: Present - mild. ABDOMINAL VASCULAR: CELIAC TRUNK: The celiac trunk and its branches opacify normally without evidence of dissection, obstruction, or flow-limiting stenosis. MESENTERIC ARTERIES: The superior mesenteric artery and inferior mesenteric artery are patent. RENAL ARTERIES: The single renal arteries bilaterally are patent proximally. No hemodynamically significant stenosis. INFRARENAL ABDOMINAL AORTA: Mild mixed atherosclerosis of the infrarenal abdominal aorta without evidence of dissection. COMMON ILIAC ARTERIES: No hemodynamically significant stenosis. INTERNAL ILIAC ARTERIES: Patent. VENOUS STRUCTURES: The inferior vena cava and portal venous system are without demonstrated abnormalities. NONVASCULAR: CHEST AND ABDOMINAL WALL: Unremarkable chest wall. Redemonstrated right lower quadrant ostomy with similar parastomal herniation of fat and nonobstructed small bowel. Redemonstration of wound in the lower ventral abdominal wall with associated drainage tract containing high density material present on noncontrast portion, likely related to previous exam. Moderate diffuse anasarca with large amount of edema associated bilateral flanks. Similar small hyperdense collection superior to the herniated small bowel without definitive rim enhancement or associated gas, possibly representing resolving abscess/phlegmon. AXILLA: No lymphadenopathy. LUNGS: Multifocal groundglass opacities with internal bronchiectatic changes including a 2.6 cm opacity in the right upper lobe (series 304, image 107), along with a 1.6 cm in the right middle and left upper lobe. Partial atelectasis of the left lower lobe, possibly compressive due to adjacent pleural effusion. PLEURA/PERICARDIUM: Moderate layering left pleural effusion which extends to the lung apices, small right pleural effusion with partially loculated component along the right major fissure. MEDIASTINUM: Left IJ CVC terminates at cavoatrial junction. Central vascular structures are unremarkable. No hilar or mediastinal lymphadenopathy. LIVER AND BILIARY TREE: Hepatic steatosis with nodular contour liver capsule. No intrahepatic biliary ductal dilation. No suspicious liver lesions. Percutaneous cholecystectomy tube remains in place with decompressed gallbladder. No suspicious liver lesions. PANCREAS: Unremarkable. SPLEEN: Unremarkable. ADRENAL GLANDS: Unremarkable. KIDNEYS AND URETERS: The kidneys are normal in size, shape, and attenuation. No hydronephrosis or hydroureter. Nonobstructive punctate right renal calculi again seen. Redemonstration of 9 mm hypoattenuating cystic lesion in the right kidney measuring approximately 100 HU and likely represents a benign proteinaceous/hemorrhagic cysts which does not require dedicated follow-up. BLADDER: Decompressed limiting evaluation. GASTROINTESTINAL TRACT: Stomach is non-dilated. Lack of oral contrast limits evaluation of bowel. 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 No dilated loops of small bowel. No contrast extravasation or pooling within the gastrointestinal lumen. LYMPH NODES: No bulky lymphadenopathy. PELVIC VISCERA: Unremarkable PERITONEAL/RETROPERITONEAL: Grossly similar degree of diffuse mesenteric fat stranding. No definitive focal collection within the abdomen is to suggest intra-abdominal abscess or hematoma. OSSEOUS STRUCTURES: No acute osseous findings. IMPRESSION: 1. No evidence of acute gastrointestinal bleed. 2. No evidence of pulmonary embolism. 3. Multifocal groundglass opacities with internal bronchiectatic changes in the lungs bilaterally. Infectious/inflammatory etiologies likely. Consider repeat nonemergent CT in 3-6 months for further evaluation. 4. Moderate left and small right pleural effusions with associated atelectasis. 5. Redemonstration of wound in the lower ventral abdominal wall with associated drainage tract containing high density material present on noncontrast portion, likely related to previous exam. 6. Similar small hyperdense collection superior to the herniated small bowel without rim enhancement or associated gas, possibly representing resolving abscess/phlegmon. 7. Hepatic steatosis with nodular contour liver capsule, suggestive of cirrhosis. 8. Percutaneous cholecystectomy tube remains in place with decompressed gallbladder. 9. Nonobstructive punctate right renal calculi. Interpreted by: Evin Elise MD [employer] I personally reviewed the images and the resident's preliminary report and made the MINOR addendum above ([email or web address]). Max Young MD [facility] [facility] ORDERABLES Final Result * CTA Abdomen+pelvis w w/o contrast (05/09/2025 2:26 AM EDT) Anatomical Region Laterality Modality CTA Body Computed Tomogra phy 05/09/2025 2:13 AM EDT Impressions 05/09/2025 9:47 AM EDT 1. No evidence of acute gastrointestinal bleed. 2. No evidence of pulmonary embolism. 3. Multifocal groundglass opacities with internal bronchiectatic changes in the lungs bilaterally. Infectious/inflammatory etiologies likely. Consider repeat nonemergent CT in 3-6 months for further evaluation. 4. Moderate left and small right pleural effusions with associated atelectasis. 5. Redemonstration of wound in the lower ventral abdominal wall with associated drainage tract containing high density material present on noncontrast portion, likely related to previous exam. 6. Similar small hyperdense collection superior to the herniated small bowel without rim enhancement or associated gas, possibly representing resolving abscess/phlegmon. 7. Hepatic steatosis with nodular contour liver capsule, suggestive of cirrhosis. 8. Percutaneous cholecystectomy tube remains in place with decompressed gallbladder. 9. Nonobstructive punctate right renal calculi. Interpreted by: Evin Elise MD [employer] I personally reviewed the images and the resident's preliminary report and made the MINOR addendum above ([email or web address]). Narrative 05/09/2025 9:47 AM EDT EXAMINATION: CTA OF THE CHEST, ABDOMEN, AND PELVIS WITH AND WITHOUT CONTRAST CLINICAL INFORMATION: 65 years old Female with tachycardia, lactic acidosis COMPARISON: CT abdomen and pelvis 04/23/2025 CT chest 08/18/2016 DESCRIPTION: Initial noncontrast localizing eligibility examiner images were obtained. Timing boluses at the level of the aortic arch and iliac arteries were calculated. Subsequently, arterial phase multidetector volumetric imaging was performed through the chest, abdomen, and pelvis following the administration of 80 mL Omnipaque 350 intravenous contrast. No contrast reaction reported Sagittal and coronal reformatted images were obtained on the technologist workstation. After extensive post-processing on a dedicated 3-D workstation, 3-D reformatted images were uploaded to PACS and reviewed as well. This CT examination was performed using dose optimization techniques as appropriate, variously including the following: *Automated exposure control *Adjustment of mA and/or kV according to patient size (this includes techniques or standardized protocols for targeted exams where dose is matched to indication/reason for exam; i.e. extremities or head) *Use of iterative reconstruction technique Total exam dose-length product 916.27 mGy-cm FINDINGS: VASCULAR: CHEST VASCULAR: THORACIC AORTA: No evidence of dissection, aneurysm, or traumatic aortic injury. Classic 3 vessel branching pattern of the aortic arch. AORTIC ISTHMUS: Normal. PULMONARY ARTERIES: No evidence of central or segmental pulmonary embolus. Mildly dilated pulmonary pulmonary trunk measuring 3.2 cm. CORONARY ARTERY CALCIFICATIONS: Present - mild. ABDOMINAL VASCULAR: CELIAC TRUNK: The celiac trunk and its branches opacify normally without evidence of dissection, obstruction, or flow-limiting stenosis. MESENTERIC ARTERIES: The superior mesenteric artery and inferior mesenteric artery are patent. RENAL ARTERIES: The single renal arteries bilaterally are patent proximally. No hemodynamically significant stenosis. INFRARENAL ABDOMINAL AORTA: Mild mixed atherosclerosis of the infrarenal abdominal aorta without evidence of dissection. COMMON ILIAC ARTERIES: No hemodynamically significant stenosis. INTERNAL ILIAC ARTERIES: Patent. VENOUS STRUCTURES: The inferior vena cava and portal venous system are without demonstrated abnormalities. NONVASCULAR: CHEST AND ABDOMINAL WALL: Unremarkable chest wall. Redemonstrated right lower quadrant ostomy with similar parastomal herniation of fat and nonobstructed small bowel. Redemonstration of wound in the lower ventral abdominal wall with associated drainage tract containing high density material present on noncontrast portion, likely related to previous exam. Moderate diffuse anasarca with large amount of edema associated bilateral flanks. Similar small hyperdense collection superior to the herniated small bowel without definitive rim enhancement or associated gas, possibly representing resolving abscess/phlegmon. AXILLA: No lymphadenopathy. LUNGS: Multifocal groundglass opacities with internal bronchiectatic changes including a 2.6 cm opacity in the right upper lobe (series 304, image 107), along with a 1.6 cm in the right middle and left upper lobe. Partial atelectasis of the left lower lobe, possibly compressive due to adjacent pleural effusion. PLEURA/PERICARDIUM: Moderate layering left pleural effusion which extends to the lung apices, small right pleural effusion with partially loculated component along the right major fissure. MEDIASTINUM: Left IJ CVC terminates at cavoatrial junction. Central vascular structures are unremarkable. No hilar or mediastinal lymphadenopathy. LIVER AND BILIARY TREE: Hepatic steatosis with nodular contour liver capsule. No intrahepatic biliary ductal dilation. No suspicious liver lesions. Percutaneous cholecystectomy tube remains in place with decompressed gallbladder. No suspicious liver lesions. PANCREAS: Unremarkable. SPLEEN: Unremarkable. ADRENAL GLANDS: Unremarkable. KIDNEYS AND URETERS: The kidneys are normal in size, shape, and attenuation. No hydronephrosis or hydroureter. Nonobstructive punctate right renal calculi again seen. Redemonstration of 9 mm hypoattenuating cystic lesion in the right kidney measuring approximately 100 HU and likely represents a benign proteinaceous/hemorrhagic cysts which does not require dedicated follow-up. BLADDER: Decompressed limiting evaluation. GASTROINTESTINAL TRACT: Stomach is non-dilated. Lack of oral contrast limits evaluation of bowel. 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 No dilated loops of small bowel. No contrast extravasation or pooling within the gastrointestinal lumen. LYMPH NODES: No bulky lymphadenopathy. PELVIC VISCERA: Unremarkable PERITONEAL/RETROPERITONEAL: Grossly similar degree of diffuse mesenteric fat stranding. No definitive focal collection within the abdomen is to suggest intra-abdominal abscess or hematoma. OSSEOUS STRUCTURES: No acute osseous findings. Procedure Note Azucena Zaman MD - 05/09/2025 EXAMINATION: CTA OF THE CHEST, ABDOMEN, AND PELVIS WITH AND WITHOUT CONTRAST CLINICAL INFORMATION: 65 years old Female with tachycardia, lactic acidosis COMPARISON: CT abdomen and pelvis 04/23/2025 CT chest 08/18/2016 DESCRIPTION: Initial noncontrast localizing eligibility examiner images were obtained. Timing boluses at the level of the aortic arch and iliac arteries were calculated. Subsequently, arterial phase multidetector volumetric imaging was performed through the chest, abdomen, and pelvis following the administration of 80 mL Omnipaque 350 intravenous contrast. No contrast reaction reported Sagittal and coronal reformatted images were obtained on the technologist workstation. After extensive post-processing on a dedicated 3-D workstation, 3-D reformatted images were uploaded to PACS and reviewed as well. This CT examination was performed using dose optimization techniques as appropriate, variously including the following: *Automated exposure control *Adjustment of mA and/or kV according to patient size (this includes techniques or standardized protocols for targeted exams where dose is matched to indication/reason for exam; i.e. extremities or head) *Use of iterative reconstruction technique Total exam dose-length product 916.27 mGy-cm FINDINGS: VASCULAR: CHEST VASCULAR: THORACIC AORTA: No evidence of dissection, aneurysm, or traumatic aortic injury. Classic 3 vessel branching pattern of the aortic arch. AORTIC ISTHMUS: Normal. PULMONARY ARTERIES: No evidence of central or segmental pulmonary embolus. Mildly dilated pulmonary pulmonary trunk measuring 3.2 cm. CORONARY ARTERY CALCIFICATIONS: Present - mild. ABDOMINAL VASCULAR: CELIAC TRUNK: The celiac trunk and its branches opacify normally without evidence of dissection, obstruction, or flow-limiting stenosis. MESENTERIC ARTERIES: The superior mesenteric artery and inferior mesenteric artery are patent. RENAL ARTERIES: The single renal arteries bilaterally are patent proximally. No hemodynamically significant stenosis. INFRARENAL ABDOMINAL AORTA: Mild mixed atherosclerosis of the infrarenal abdominal aorta without evidence of dissection. COMMON ILIAC ARTERIES: No hemodynamically significant stenosis. INTERNAL ILIAC ARTERIES: Patent. VENOUS STRUCTURES: The inferior vena cava and portal venous system are without demonstrated abnormalities. NONVASCULAR: CHEST AND ABDOMINAL WALL: Unremarkable chest wall. Redemonstrated right lower quadrant ostomy with similar parastomal herniation of fat and nonobstructed small bowel. Redemonstration of wound in the lower ventral abdominal wall with associated drainage tract containing high density material present on noncontrast portion, likely related to previous exam. Moderate diffuse anasarca with large amount of edema associated bilateral flanks. Similar small hyperdense collection superior to the herniated small bowel without definitive rim enhancement or associated gas, possibly representing resolving abscess/phlegmon. AXILLA: No lymphadenopathy. LUNGS: Multifocal groundglass opacities with internal bronchiectatic changes including a 2.6 cm opacity in the right upper lobe (series 304, image 107), along with a 1.6 cm in the right middle and left upper lobe. Partial atelectasis of the left lower lobe, possibly compressive due to adjacent pleural effusion. PLEURA/PERICARDIUM: Moderate layering left pleural effusion which extends to the lung apices, small right pleural effusion with partially loculated component along the right major fissure. MEDIASTINUM: Left IJ CVC terminates at cavoatrial junction. Central vascular structures are unremarkable. No hilar or mediastinal lymphadenopathy. LIVER AND BILIARY TREE: Hepatic steatosis with nodular contour liver capsule. No intrahepatic biliary ductal dilation. No suspicious liver lesions. Percutaneous cholecystectomy tube remains in place with decompressed gallbladder. No suspicious liver lesions. PANCREAS: Unremarkable. SPLEEN: Unremarkable. ADRENAL GLANDS: Unremarkable. KIDNEYS AND URETERS: The kidneys are normal in size, shape, and attenuation. No hydronephrosis or hydroureter. Nonobstructive punctate right renal calculi again seen. Redemonstration of 9 mm hypoattenuating cystic lesion in the right kidney measuring approximately 100 HU and likely represents a benign proteinaceous/hemorrhagic cysts which does not require dedicated follow-up. BLADDER: Decompressed limiting evaluation. GASTROINTESTINAL TRACT: Stomach is non-dilated. Lack of oral contrast limits evaluation of bowel. 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 No dilated loops of small bowel. No contrast extravasation or pooling within the gastrointestinal lumen. LYMPH NODES: No bulky lymphadenopathy. PELVIC VISCERA: Unremarkable PERITONEAL/RETROPERITONEAL: Grossly similar degree of diffuse mesenteric fat stranding. No definitive focal collection within the abdomen is to suggest intra-abdominal abscess or hematoma. OSSEOUS STRUCTURES: No acute osseous findings. IMPRESSION: 1. No evidence of acute gastrointestinal bleed. 2. No evidence of pulmonary embolism. 3. Multifocal groundglass opacities with internal bronchiectatic changes in the lungs bilaterally. Infectious/inflammatory etiologies likely. Consider repeat nonemergent CT in 3-6 months for further evaluation. 4. Moderate left and small right pleural effusions with associated atelectasis. 5. Redemonstration of wound in the lower ventral abdominal wall with associated drainage tract containing high density material present on noncontrast portion, likely related to previous exam. 6. Similar small hyperdense collection superior to the herniated small bowel without rim enhancement or associated gas, possibly representing resolving abscess/phlegmon. 7. Hepatic steatosis with nodular contour liver capsule, suggestive of cirrhosis. 8. Percutaneous cholecystectomy tube remains in place with decompressed gallbladder. 9. Nonobstructive punctate right renal calculi. Interpreted by: Evin Elise MD [employer] I personally reviewed the images and the resident's preliminary report and made the MINOR addendum above ([id number]). Max Young MD IMG CT ORDERABLES Final Result * Prolactin (05/08/2025 11:57 PM EDT) Prolactin 7.6 4.8 - 23.3 ng/mL 05/09/2025 12:38 AM EDT [facility] Blood Blood specimen / Unknown 05/08/2025 11:57 PM EDT 05/09/2025 12:03 AM EDT Max Young MD LAB BLOOD ORDERABLES Final Resu lt [address] [address], [address] [address] * (ABNORMAL) Blood Gas, Venous (05/08/2025 11:57 PM EDT) Venous Blood PH 7.34 7.33 - 7.43 05/09/2025 12:20 AM EDT [facility] Venous pCO2 30(L) 35 - 50 mmHG 05/09/2025 12:20 AM EDT [facility] Venous pO2 95(H) 0 - 60 mmHG 05/09/2025 12:20 AM EDT [facility] Venous Total CO2 17(L) 23 - 29 mmol/L 05/09/2025 12:20 AM EDT [facility] Respiratory Info ROOM AIR 05/08/20 25 10:32 PM EDT [facility] Base Deficiency 8.6 mmol/L 12:20 AM EDT [facility] Comment:Reference Range: Neg ative 2 to Positive 3 Blood Blood specimen / Unknown 05/08/2025 11:57 PM EDT 05/09/2025 12:02 AM EDT Max Young MD LAB BLOOD ORDERABLES Final Resu lt Performing Organization Address [facility] Co de Phone Number [address] [address], [address] [address] * CT Head Archive for Reference Only (05/08/2025 6:58 PM EDT) Only the most recent of3 resultswithin the time period is included. Narrative [facility] 05/08/2025 6:58 PM EDT This study has been auto finalized and does not contain a result. us File Room Provider IMG DIGITIZE FILMS Final Resu lt Performing Organization Address [facility] de Phone Number NITIN [phone] * MR Head Archive for Reference Only (05/08/2025 6:57 PM EDT) Narrative [facility] - 05/08/2025 6:57 PM EDT This study has been auto finalized and does not contain a result. us File Room Provider IMG DIGITIZE FILMS Final Resu lt Performing Organization Address [facility] Co de Phone Number NITIN [phone] from Last 3 Months Insurance [employer] MEDICARE Advance Directives * Full Code (Latest Code Status on File) Date Activated Date Inactivated Comments 05/21/2025 11:21 AM * Full Code Date Activated Date Inactivated Comments 05/08/2025 10:02 PM 05/21/2025 11:21 AM Healthcare Agents on File Name Relationship Healthcare Agent Relationshi p Communication Geovanna Vasquez Adult child 1. Health Care Represe ntative Care Teams [employer] Operations Specialist Relationship Specialty Start Date End Date Joi Rebollar MD [address] [place] [address] PCP - General Internal Medicine 05/08/25
--- OUTSIDE RECORDS SUMMARY | 2025-06-16 15:47 | XMS_ITS ---
Author Name [facility] Organization Unknown Results Test Name/Text Value Interpretation Date Range Source Sodium SerPl-sCnc 135.0 mmol/L Below low normal 06/03/2025 1 36 - 145 [facility] Potassium SerPl-sCnc 3.9 mmol/L 06/03/2025 3.4 - 5.3 [facility]CT BUN SerPl-mCnc 9.0 mg/dL 06/03/2025 8 - 21 [facility] T ALP SerPl-cCnc 119.0 U/L 06/03/2025 32 - 122 [facility] T Globulin Ser Calc-mCnc 2.7 g/dL 06/03/2025 1.5 - 3.9 [facility] Chloride SerPl-sCnc 104.0 mmol/L 06/03/2025 98 - 1 07 [facility] Glucose SerPl-mCnc 92.0 mg/dL 06/03/2025 65 - 99 [facility] CO2 SerPl-sCnc 24.0 mmol/L 06/03/2025 22 - 33 HH CCT Albumin/Glob SerPl 0.9 Ratio Below low normal 06/03/2025 1 - 3 [facility] Prot SerPl-mCnc 5.2 g/dL Below low normal 06/03/2025 6.3 - 8.3 [facility]CT Bilirub SerPl-mCnc 0.3 mg/dL 06/03/2025 0.2 - 1 [facility] GFR/BSA.pred SerPlBld [id number]-[id number] >90.0 06/03/2025 59 - [facility]CT Anion Gap Bld-sCnc 7.0 06/03/2025 7 - 17 [facility] Albumin SerPl-mCnc 2.5 g/dL Below low normal 06/03/2025 3.4 - 4.8 [facility]CT Calcium SerPl-mCnc 8.0 mg/dL Below low normal 06/03/2025 8.7 - 10.5 [facility]CT BUN/Creat SerPl 17.0 Ratio 06/03/2025 10 - 25 HH CCT AST SerPl-cCnc 21.0 U/L 06/03/2025 10 - 50 [facility] T Creat SerPl-mCnc 0.52 mg/dL 06/03/2025 0.4 - 1.1 H HCCT ALT SerPl-cCnc 11.0 U/L 06/03/2025 10 - 50 [facility] T Magnesium SerPl-mCnc 1.5 mg/dL Below low normal 06/03/2025 1.6 - 2.7 [facility]CT Lipase SerPl-cCnc 256.0 U/L Above high normal 06/03/2025 13 - 60 H[facility]CT Hct VFr Bld Auto 23.5 % Below low normal 06/03/2025 35 - 47 H[facility]CT WBC num Bld Auto 7.7 Thou/uL 06/03/2025 4 - 11 [facility] RBC num Bld Auto 2.58 Mil/uL Below low normal 06/03/2025 4 - 5.4 [facility]CT Hgb Bld-mCnc 7.5 g/dL Below low normal 06/03/2025 11.7 - 15 .7 H[facility]CT PMV Bld Auto 9.5 fL 06/03/2025 7.5 - 12.5 [facility]CT Platelet num Bld Auto 251.0 Thou/uL 06/03/2025 150 - 450 [facility]CT MCV RBC Auto 91.0 fL 06/03/2025 80 - 100 [facility]CT RDW RBC Auto-Rto 18.2 % Above high normal 06/03/2025 11.5 - 14.5 HHCCT MCHC RBC Auto-mCnc 31.9 g/dL 06/03/2025 30 - 36 H[facility]CT MCH RBC Qn Auto 29.1 pg 06/03/2025 27 - [address] Lactate SerPl-sCnc 0.8 mmol/L 06/02/2025 0.5 - 1.9 [facility]CT BUN SerPl-mCnc 20.0 mg/dL 06/02/2025 8 - [address] Calcium SerPl-mCnc 8.3 mg/dL Below low normal 06/02/2025 8.7 - 10.5 H[facility]CT Sodium SerPl-sCnc 134.0 mmol/L Below low normal 06/02/2025 1 36 - 145 [facility]CT CO2 SerPl-sCnc 21.0 mmol/L Below low normal 06/02/2025 22 - 33 [facility]CT Globulin Ser Calc-mCnc 3.3 g/dL 06/02/2025 1.5 - 3.9 HHCCT ALP SerPl-cCnc 131.0 U/L Above high normal 06/02/2025 32 - 1 22 HHCCT Creat SerPl-mCnc 0.65 mg/dL 06/02/2025 0.4 - 1.1 H HCCT ALT SerPl-cCnc 10.0 U/L 06/02/2025 10 - 50 [facility] T Chloride SerPl-sCnc 102.0 mmol/L 06/02/2025 98 - 1 07 HHCCT Bilirub SerPl-mCnc 0.4 mg/dL 06/02/2025 0.2 - 1 H[facility]CT Prot SerPl-mCnc 6.2 g/dL Below low normal 06/02/2025 6.3 - 8.3 HHCCT Albumin SerPl-mCnc 2.9 g/dL Below low normal 06/02/2025 3.4 - 4.8 H[facility]CT GFR/BSA.pred SerPlBld RDY-ATS-SqEGaf >90.0 06/02/2025 59 - HHCCT AST SerPl-cCnc 25.0 U/L 06/02/2025 10 - 50 [facility] T Potassium SerPl-sCnc 4.1 mmol/L 06/02/2025 3.4 - 5.3 H[facility]CT BUN/Creat SerPl 31.0 Ratio Above high normal 06/02/2025 10 - 25 [facility]CT Albumin/Glob SerPl 0.9 Ratio Below low normal 06/02/2025 1 - 3 [facility]CT Glucose SerPl-mCnc 98.0 mg/dL 06/02/2025 65 - 99 H[facility]CT Anion Gap Bld-sCnc 11.0 06/02/2025 7 - 17 H[facility]CT Magnesium SerPl-mCnc 1.4 mg/dL Below low normal 06/02/2025 1.6 - 2.7 H[facility]CT Platelet num Bld Auto 269.0 Thou/uL 06/02/2025 150 - 450 H[facility]CT MCH RBC Qn Auto 28.3 pg 06/02/2025 27 - [address] Basophils num Bld Auto 0.06 Thou/uL 06/02/2025 0 - 0.2 HHCCT RBC num Bld Auto 2.79 Mil/uL Below low normal 06/02/2025 4 - 5.4 HHCCT Lymphocytes/leuk NFr Bld Auto 11.7 % 06/02/2025 HHCCT PMV Bld Auto 9.3 fL 06/02/2025 7.5 - 12.5 HHCCT RDW RBC Auto-Rto 18.0 % Above high normal 06/02/2025 11.5 - 14.5 HHCCT Imm Granulocytes/leuk NFr Bld Auto 0.7 % 06/02/2025 H[facility]CT Basophils/leuk NFr Bld Auto 0.6 % 06/02/2025 H[facility]CT Imm Granulocytes num Bld Auto 0.07 Thou/uL 06/02/2025 0 - 0.1 HHCCT Lymphocytes num Bld Auto 1.24 Thou/uL Below low normal 06/02/2025 1.5 - 4.5 H[facility]CT Neutrophils/leuk NFr Bld Auto 75.6 % 06/02/2025 H[facility]CT WBC num Bld Auto 10.6 Thou/uL 06/02/2025 4 - 11 [facility]CT Eosinophil/leuk NFr Bld Auto 1.6 % 06/02/2025 H[facility]CT Monocytes/leuk NFr Bld Auto 9.8 % 06/02/2025 H[facility]CT Monocytes num Bld Auto 1.04 Thou/uL 06/02/2025 0.2 - 1.5 H[facility]CT Hgb Bld-mCnc 7.9 g/dL Below low normal 06/02/2025 11.7 - 15 .7 HHCCT Neutrophils num Bld Auto 7.99 Thou/uL Above high normal 06/02/2025 2 - 7.5 HHCCT MCHC RBC Auto-mCnc 31.6 g/dL 06/02/2025 30 - 36 H[facility]CT Eosinophil num Bld Auto 0.17 Thou/uL 06/02/2025 0 - 0.7 HHCCT Hct VFr Bld Auto 25.0 % Below low normal 06/02/2025 35 - 47 H[facility]CT MCV RBC Auto 90.0 fL 06/02/2025 80 - 100 [facility] Lipase SerPl-cCnc 1172.0 U/L Above high normal 06/01/2025 13 - 60 H[facility]CT ALP SerPl-cCnc 172.0 U/L Above high normal 06/01/2025 32 - 1 22 [facility]CT BUN/Creat SerPl 28.0 Ratio Above high normal 06/01/2025 10 - 25 [facility]CT GFR/BSA.pred SerPlBld BPA-QDR-NbZSvm 60.0 06/01/2025 59 - HHCCT Creat SerPl-mCnc 1.03 mg/dL 06/01/2025 0.4 - 1.1 H HCCT Calcium SerPl-mCnc 8.6 mg/dL Below low normal 06/01/2025 8.7 - 10.5 H[facility]CT AST SerPl-cCnc 33.0 U/L 06/01/2025 10 - 50 [facility] T Albumin SerPl-mCnc 3.4 g/dL 06/01/2025 3.4 - 4.8 [facility]CT BUN SerPl-mCnc 29.0 mg/dL Above high normal 06/01/2025 8 - 2 1 H[facility]CT Sodium SerPl-sCnc 134.0 mmol/L Below low normal 06/01/2025 1 36 - 145 [facility]CT Glucose SerPl-mCnc 117.0 mg/dL Above high normal 06/01/2025 65 - 99 H[facility]CT ALT SerPl-cCnc 14.0 U/L 06/01/2025 10 - 50 [facility] T Bilirub SerPl-mCnc 0.4 mg/dL 06/01/2025 0.2 - 1 [facility]CT Prot SerPl-mCnc 7.4 g/dL 06/01/2025 6.3 - 8.[address] Globulin Ser Calc-mCnc 4.0 g/dL Above high normal 06/01/2025 1.5 - 3.9 [facility]CT Anion Gap Bld-sCnc 13.0 06/01/2025 7 - 17 [facility]CT Chloride SerPl-sCnc 102.0 mmol/L 06/01/2025 98 - 1 07 [facility]CT Albumin/Glob SerPl 0.9 Ratio Below low normal 06/01/2025 1 - 3 [facility]CT Potassium SerPl-sCnc 4.4 mmol/L 06/01/2025 3.4 - 5.3 [facility]CT CO2 SerPl-sCnc 19.0 mmol/L Below low normal 06/01/2025 22 - 33 H[facility]CT Hct VFr Bld Auto 26.5 % Below low normal 06/01/2025 35 - 47 [facility]CT MCHC RBC Auto-mCnc 32.5 g/dL 06/01/2025 30 - 36 [facility]CT MCH RBC Qn Auto 28.5 pg 06/01/2025 27 - [address] PMV Bld Auto 9.6 fL 06/01/2025 7.5 - 12.5 [facility]CT Platelet num Bld Auto 308.0 Thou/uL 06/01/2025 150 - 450 [facility]CT RBC num Bld Auto 3.02 Mil/uL Below low normal 06/01/2025 4 - 5.4 H[facility]CT RDW RBC Auto-Rto 18.0 % Above high normal 06/01/2025 11.5 - 14.5 H[facility]CT Hgb Bld-mCnc 8.6 g/dL Below low normal 06/01/2025 11.7 - 15 .7 HHCCT WBC num Bld Auto 11.1 Thou/uL Above high normal 06/01/2025 4 - 11 H[facility]CT MCV RBC Auto 88.0 fL 06/01/2025 80 - 100 H[facility]CT GFR/BSA.pred SerPlBld HEW-ELU-MsURcs 47.0 Below low normal 06/01/2025 59 - HHCCT Potassium SerPl-sCnc 4.5 mmol/L 06/01/2025 3.4 - 5.3 HHCCT BUN SerPl-mCnc 31.0 mg/dL Above high normal 06/01/2025 8 - 2 1 HHCCT CO2 SerPl-sCnc 20.0 mmol/L Below low normal 06/01/2025 22 - 33 H[facility]CT Sodium SerPl-sCnc 133.0 mmol/L Below low normal 06/01/2025 1 36 - 145 H[facility]CT Calcium SerPl-mCnc 8.7 mg/dL 06/01/2025 8.7 - 10.5 HHCCT Creat SerPl-mCnc 1.26 mg/dL Above high normal 06/01/2025 0.4 - 1.1 HHCCT Glucose SerPl-mCnc 100.0 mg/dL Above high normal 06/01/2025 65 - 99 HHCCT BUN/Creat SerPl 25.0 Ratio 06/01/2025 10 - 25 HH CCT Anion Gap Bld-sCnc 10.0 06/01/2025 7 - 17 HHCCT Chloride SerPl-sCnc 103.0 mmol/L 06/01/2025 98 - 1 07 HHCCT Magnesium SerPl-mCnc 2.1 mg/dL 06/01/2025 1.6 - 2.7 HHCCT Magnesium SerPl-mCnc 2.4 mg/dL 06/01/2025 1.6 - 2.7 HHCCT Magnesium SerPl-mCnc 1.0 mg/dL Critically low 05/31/2025 1.6 - 2.7 HHCCT BUN/Creat SerPl 19.0 Ratio 05/31/2025 10 - 25 HH CCT Glucose SerPl-mCnc 136.0 mg/dL Above high normal 05/31/2025 65 - 99 H[facility]CT Chloride SerPl-sCnc 101.0 mmol/L 05/31/2025 98 - 1 07 HHCCT CO2 SerPl-sCnc 18.0 mmol/L Below low normal 05/31/2025 22 - 33 HHCCT Anion Gap Bld-sCnc 14.0 05/31/2025 7 - 17 HHCCT GFR/BSA.pred SerPlBld YDJ-XHG-EdEGey 36.0 Below low normal 05/31/2025 59 - HHCCT Creat SerPl-mCnc 1.56 mg/dL Above high normal 05/31/2025 0.4 - 1.1 HHCCT BUN SerPl-mCnc 29.0 mg/dL Above high normal 05/31/2025 8 - 2 1 H[facility]CT Sodium SerPl-sCnc 133.0 mmol/L Below low normal 05/31/2025 1 36 - 145 H[facility]CT Calcium SerPl-mCnc 8.7 mg/dL 05/31/2025 8.7 - 10.5 HHCCT Potassium SerPl-sCnc 4.7 mmol/L 05/31/2025 3.4 - 5.3 HHCCT MCHC RBC Auto-mCnc 31.2 g/dL 05/31/2025 30 - 36 H[facility]CT RDW RBC Auto-Rto 17.8 % Above high normal 05/31/2025 11.5 - 14.5 HHCCT PMV Bld Auto 9.9 fL 05/31/2025 7.5 - 12.5 HHCCT RBC num Bld Auto 3.54 Mil/uL Below low normal 05/31/2025 4 - 5.4 HHCCT Hgb Bld-mCnc 9.8 g/dL Below low normal 05/31/2025 11.7 - 15 .7 HHCCT MCH RBC Qn Auto 27.7 pg 05/31/2025 27 - [address] Platelet num Bld Auto 426.0 Thou/uL 05/31/2025 150 - 450 HHCCT Hct VFr Bld Auto 31.4 % Below low normal 05/31/2025 35 - 47 HHCCT WBC num Bld Auto 11.4 Thou/uL Above high normal 05/31/2025 4 - 11 HHCCT MCV RBC Auto 89.0 fL 05/31/2025 80 - 100 HHCCT Phosphate SerPl-mCnc 2.8 mg/dL 05/27/2025 2.7 - 4.5 HHCCT Magnesium SerPl-mCnc 1.8 mg/dL 05/27/2025 1.6 - 2.7 HHCCT Glucose SerPl-mCnc 101.0 mg/dL Above high normal 05/27/2025 65 - 99 HHCCT BUN SerPl-mCnc 22.0 mg/dL Above high normal 05/27/2025 8 - 2 1 HHCCT GFR/BSA.pred SerPlBld [id number]-LaQJhz 80.0 05/27/2025 59 - HHCCT Sodium SerPl-sCnc 134.0 mmol/L Below low normal 05/27/2025 1 36 - 145 H[facility]CT Chloride SerPl-sCnc 105.0 mmol/L 05/27/2025 98 - 1 07 HHCCT CO2 SerPl-sCnc 19.0 mmol/L Below low normal 05/27/2025 22 - 33 HHCCT Creat SerPl-mCnc 0.81 mg/dL 05/27/2025 0.4 - 1.1 H HCCT Anion Gap Bld-sCnc 10.0 05/27/2025 7 - 17 HHCCT BUN/Creat SerPl 27.0 Ratio Above high normal 05/27/2025 10 - 25 HHCCT Potassium SerPl-sCnc 3.8 mmol/L 05/27/2025 3.4 - 5.3 HHCCT Calcium SerPl-mCnc 8.6 mg/dL Below low normal 05/27/2025 8.7 - 10.5 HHCCT Phosphate SerPl-mCnc 2.9 mg/dL 05/26/2025 2.7 - 4.5 HHCCT BUN/Creat SerPl 28.0 Ratio Above high normal 05/26/2025 10 - 25 H[facility]CT BUN SerPl-mCnc 27.0 mg/dL Above high normal 05/26/2025 8 - 2 1 HHCCT Prot SerPl-mCnc 8.0 g/dL 05/26/2025 6.3 - 8.[address] AST SerPl-cCnc 35.0 U/L 05/26/2025 10 - 50 [facility] T Albumin/Glob SerPl 0.8 Ratio Below low normal 05/26/2025 1 - 3 HHCCT Bilirub SerPl-mCnc 0.5 mg/dL 05/26/2025 0.2 - 1 HHCCT GFR/BSA.pred SerPlBld HTW-UJO-TyCYly 65.0 05/26/2025 59 - HHCCT Potassium SerPl-sCnc 4.2 mmol/L 05/26/2025 3.4 - 5.3 HHCCT Chloride SerPl-sCnc 100.0 mmol/L 05/26/2025 98 - 1 07 HHCCT Calcium SerPl-mCnc 9.0 mg/dL 05/26/2025 8.7 - 10.5 HHCCT Albumin SerPl-mCnc 3.6 g/dL 05/26/2025 3.4 - 4.8 HHCCT Glucose SerPl-mCnc 106.0 mg/dL Above high normal 05/26/2025 65 - 99 HHCCT Sodium SerPl-sCnc 134.0 mmol/L Below low normal 05/26/2025 1 36 - 145 HHCCT Creat SerPl-mCnc 0.96 mg/dL 05/26/2025 0.4 - 1.1 H HCCT ALP SerPl-cCnc 205.0 U/L Above high normal 05/26/2025 32 - 1 22 HHCCT ALT SerPl-cCnc 12.0 U/L 05/26/2025 10 - 50 [facility] T Anion Gap Bld-sCnc 13.0 05/26/2025 7 - 17 HHCCT CO2 SerPl-sCnc 21.0 mmol/L Below low normal 05/26/2025 22 - 33 HHCCT Globulin Ser Calc-mCnc 4.4 g/dL Above high normal 05/26/2025 1.5 - 3.9 HHCCT Magnesium SerPl-mCnc 1.4 mg/dL Below low normal 05/26/2025 1.6 - 2.7 HHCCT Platelet num Bld Auto 339.0 Thou/uL 05/26/2025 150 - 450 HHCCT PMV Bld Auto 10.0 fL 05/26/2025 7.5 - 12.5 HHCCT Lymphocytes num Bld Auto 2.73 Thou/uL 05/26/2025 1.5 - 4.5 HHCCT Monocytes num Bld Auto 1.16 Thou/uL 05/26/2025 0.2 - 1.5 HHCCT WBC num Bld Auto 9.8 Thou/uL 05/26/2025 4 - 11 HHCCT Hct VFr Bld Auto 28.3 % Below low normal 05/26/2025 35 - 47 HHCCT Lymphocytes/leuk NFr Bld Auto 28.0 % 05/26/2025 HHCCT RBC num Bld Auto 3.21 Mil/uL Below low normal 05/26/2025 4 - 5.4 HHCCT MCV RBC Auto 88.0 fL 05/26/2025 80 - 100 H[facility]CT Imm Granulocytes/leuk NFr Bld Auto 1.1 % 05/26/2025 HHCCT MCHC RBC Auto-mCnc 31.8 g/dL 05/26/2025 30 - 36 HHCCT Hgb Bld-mCnc 9.0 g/dL Below low normal 05/26/2025 11.7 - 15 .7 HHCCT Basophils num Bld Auto 0.13 Thou/uL 05/26/2025 0 - 0.2 HHCCT Neutrophils/leuk NFr Bld Auto 49.7 % 05/26/2025 HHCCT Neutrophils num Bld Auto 4.84 Thou/uL 05/26/2025 2 - 7.5 HHCCT Imm Granulocytes num Bld Auto 0.11 Thou/uL Above high normal 05/26/2025 0 - 0.1 HHCCT Eosinophil/leuk NFr Bld Auto 8.0 % 05/26/2025 HHCCT Basophils/leuk NFr Bld Auto 1.3 % 05/26/2025 HHCCT RDW RBC Auto-Rto 17.2 % Above high normal 05/26/2025 11.5 - 14.5 HHCCT Eosinophil num Bld Auto 0.78 Thou/uL Above high normal 05/26/2025 0 - 0.7 HHCCT Monocytes/leuk NFr Bld Auto 11.9 % 05/26/2025 HHCCT MCH RBC Qn Auto 28.0 pg 05/26/2025 27 - [address] Osmolality Ur 546.0 mOsm/Kg 05/25/2025 50 - 1200 H HCCT Sodium Ur-sCnc <20.0 mmol/L 05/25/2025 H HCCT Magnesium SerPl-mCnc 1.7 mg/dL 05/24/2025 1.6 - 2.7 HHCCT CO2 SerPl-sCnc 21.0 mmol/L Below low normal 05/24/2025 22 - 33 HHCCT Sodium SerPl-sCnc 131.0 mmol/L Below low normal 05/24/2025 1 36 - 145 HHCCT Glucose SerPl-mCnc 92.0 mg/dL 05/24/2025 65 - 99 HHCCT Calcium SerPl-mCnc 8.6 mg/dL Below low normal 05/24/2025 8.7 - 10.5 HHCCT BUN SerPl-mCnc 31.0 mg/dL Above high normal 05/24/2025 8 - 2 1 HHCCT Creat SerPl-mCnc 1.05 mg/dL 05/24/2025 0.4 - 1.1 H HCCT Albumin SerPl-mCnc 3.4 g/dL 05/24/2025 3.4 - 4.8 HHCCT Potassium SerPl-sCnc 4.4 mmol/L 05/24/2025 3.4 - 5.3 HHCCT Chloride SerPl-sCnc 98.0 mmol/L 05/24/2025 98 - 10 7 HHCCT BUN/Creat SerPl 30.0 Ratio Above high normal 05/24/2025 10 - 25 HHCCT Phosphate SerPl-mCnc 3.0 mg/dL 05/24/2025 2.7 - 4.5 HHCCT GFR/BSA.pred SerPlBld YZJ-JPO-PhGPac 59.0 Below low normal 05/24/2025 59 - HHCCT Magnesium SerPl-mCnc 2.1 mg/dL 05/23/2025 1.6 - 2.7 HHCCT Creat SerPl-mCnc 1.8 mg/dL Above high normal 05/23/2025 0.4 - 1.1 HHCCT BUN/Creat SerPl 19.0 Ratio 05/23/2025 10 - 25 HH CCT GFR/BSA.pred SerPlBld KZB-DQV-DzXJkc 31.0 Below low normal 05/23/2025 59 - HHCCT Glucose SerPl-mCnc 118.0 mg/dL Above high normal 05/23/2025 65 - 99 HHCCT BUN SerPl-mCnc 35.0 mg/dL Above high normal 05/23/2025 8 - 2 1 HHCCT Anion Gap Bld-sCnc 14.0 05/23/2025 7 - 17 HHCCT Potassium SerPl-sCnc 4.3 mmol/L 05/23/2025 3.4 - 5.3 HHCCT Sodium SerPl-sCnc 132.0 mmol/L Below low normal 05/23/2025 1 36 - 145 HHCCT CO2 SerPl-sCnc 23.0 mmol/L 05/23/2025 22 - 33 HH CCT Calcium SerPl-mCnc 8.8 mg/dL 05/23/2025 8.7 - 10.5 HHCCT Chloride SerPl-sCnc 95.0 mmol/L Below low normal 05/23/2025 98 - 107 HHCCT WBC num Bld Auto 9.5 Thou/uL 05/23/2025 4 - 11 HHCCT Hct VFr Bld Auto 29.5 % Below low normal 05/23/2025 35 - 47 HHCCT Hgb Bld-mCnc 9.3 g/dL Below low normal 05/23/2025 11.7 - 15 .7 HHCCT RBC num Bld Auto 3.39 Mil/uL Below low normal 05/23/2025 4 - 5.4 HHCCT MCHC RBC Auto-mCnc 31.5 g/dL 05/23/2025 30 - 36 HHCCT PMV Bld Auto 10.6 fL 05/23/2025 7.5 - 12.5 HHCCT MCH RBC Qn Auto 27.4 pg 05/23/2025 27 - [address] Platelet num Bld Auto 303.0 Thou/uL 05/23/2025 150 - 450 HHCCT MCV RBC Auto 87.0 fL 05/23/2025 80 - 100 HHCCT RDW RBC Auto-Rto 17.1 % Above high normal 05/23/2025 11.5 - 14.5 HHCCT Magnesium SerPl-mCnc 2.2 mg/dL 05/23/2025 1.6 - 2.7 HHCCT Creat SerPl-mCnc 0.98 mg/dL 05/22/2025 0.4 - 1.1 H HCCT BUN SerPl-mCnc 29.0 mg/dL Above high normal 05/22/2025 8 - 2 1 HHCCT Potassium SerPl-sCnc 4.0 mmol/L 05/22/2025 3.4 - 5.3 HHCCT Chloride SerPl-sCnc 96.0 mmol/L Below low normal 05/22/2025 98 - 107 HHCCT GFR/BSA.pred SerPlBld WHU-AUU-EzKVou 64.0 05/22/2025 59 - HHCCT Sodium SerPl-sCnc 134.0 mmol/L Below low normal 05/22/2025 1 36 - 145 HHCCT Calcium SerPl-mCnc 9.1 mg/dL 05/22/2025 8.7 - 10.5 HHCCT Anion Gap Bld-sCnc 16.0 05/22/2025 7 - 17 HHCCT CO2 SerPl-sCnc 22.0 mmol/L 05/22/2025 22 - 33 HH CCT BUN/Creat SerPl 30.0 Ratio Above high normal 05/22/2025 10 - 25 HHCCT Glucose SerPl-mCnc 102.0 mg/dL Above high normal 05/22/2025 65 - 99 HHCCT Magnesium SerPl-mCnc 1.3 mg/dL Below low normal 05/22/2025 1.6 - 2.7 HHCCT Eosinophil/leuk NFr Bld Auto 4.6 % 05/22/2025 HHCCT Hgb Bld-mCnc 9.9 g/dL Below low normal 05/22/2025 11.7 - 15 .7 HHCCT Imm Granulocytes/leuk NFr Bld Auto 0.4 % 05/22/2025 HHCCT MCH RBC Qn Auto 28.3 pg 05/22/2025 27 - [address] WBC num Bld Auto 10.5 Thou/uL 05/22/2025 4 - 11 [facility]CT Monocytes/leuk NFr Bld Auto 15.3 % [facility] 10.4 fL 05/22/2025 7.5 - 12.5 [facility]CT Eosinophil num Bld Auto 0.48 Thou/uL 05/22/2025 0 - 0.7 HHCCT MCHC RBC Auto-mCnc 32.8 g/dL 05/22/2025 30 - 36 HHCCT Monocytes num Bld Auto 1.61 Thou/uL Above high normal 05/22/2025 0.2 - 1.5 [facility]CT Neutrophils/leuk NFr Bld Auto 58.2 % [facility]22[facility] num Bld Auto 3.5 Mil/uL Below low normal 05/22/2025 4 - 5.4 H[facility]CT Neutrophils num Bld Auto 6.11 Thou/uL 05/22/2025 2 - 7.5 HHCCT Platelet num Bld Auto 291.0 Thou/uL 05/22/2025 150 - 450 HHCCT Basophils/leuk NFr Bld Auto 1.3 % 05/22/2025 HHCCT Basophils num Bld Auto 0.14 Thou/uL 05/22/2025 0 - 0.2 HHCCT Lymphocytes/leuk NFr Bld Auto 20.2 % 05/22/2025 HHCCT Hct VFr Bld Auto 30.2 % Below low normal 05/22/2025 35 - 47 HHCCT RDW RBC Auto-Rto 16.9 % Above high normal 05/22/2025 11.5 - 14.5 HHCCT Imm Granulocytes num Bld Auto 0.04 Thou/uL 05/22/2025 0 - 0.1 HHCCT Lymphocytes num Bld Auto 2.12 Thou/uL 05/22/2025 1.5 - 4.5 HHCCT MCV RBC Auto 86.0 fL 05/22/2025 80 - 100 HHCCT Potassium SerPl-sCnc 3.8 mmol/L 05/21/2025 3.4 - 5.3 HHCCT Creat SerPl-mCnc 0.69 mg/dL 05/21/2025 0.4 - 1.1 H HCCT Anion Gap Bld-sCnc 13.0 05/21/2025 7 - 17 HHCCT BUN/Creat SerPl 29.0 Ratio Above high normal 05/21/2025 10 - 25 HHCCT Sodium SerPl-sCnc 133.0 mmol/L Below low normal 05/21/2025 1 36 - 145 HHCCT CO2 SerPl-sCnc 23.0 mmol/L 05/21/2025 22 - 33 HH CCT Calcium SerPl-mCnc 8.4 mg/dL Below low normal 05/21/2025 8.7 - 10.5 HHCCT BUN SerPl-mCnc 20.0 mg/dL 05/21/2025 8 - [address] GFR/BSA.pred SerPlBld NYI-ZJE-GhNOls >90.0 05/21/2025 59 - HHCCT Chloride SerPl-sCnc 97.0 mmol/L Below low normal 05/21/2025 98 - 107 HHCCT Glucose SerPl-mCnc 81.0 mg/dL 05/21/2025 65 - 99 HHCCT Hct VFr Bld Auto 26.5 % Below low normal 05/21/2025 35 - 47 HHCCT PMV Bld Auto 10.6 fL 05/21/2025 7.5 - 12.5 HHCCT MCH RBC Qn Auto 27.9 pg 05/21/2025 27 - [address] WBC num Bld Auto 8.0 Thou/uL 05/21/2025 4 - 11 HHCCT RDW RBC Auto-Rto 16.6 % Above high normal 05/21/2025 11.5 - 14.5 HHCCT MCHC RBC Auto-mCnc 32.5 g/dL 05/21/2025 30 - 36 HHCCT Platelet num Bld Auto 249.0 Thou/uL 05/21/2025 150 - 450 HHCCT MCV RBC Auto 86.0 fL 05/21/2025 80 - 100 HHCCT Hgb Bld-mCnc 8.6 g/dL Below low normal 05/21/2025 11.7 - 15 .7 HHCCT RBC num Bld Auto 3.08 Mil/uL Below low normal 05/21/2025 4 - 5.4 HHCCT Chloride SerPl-sCnc 100.0 mmol/L 05/20/2025 98 - 1 07 HHCCT GFR/BSA.pred SerPlBld [id number] 81.0 05/20/2025 59 - HHCCT Glucose SerPl-mCnc 102.0 mg/dL Above high normal 05/20/2025 65 - 99 HHCCT Anion Gap Bld-sCnc 12.0 05/20/2025 7 - 17 HHCCT BUN SerPl-mCnc 23.0 mg/dL Above high normal 05/20/2025 8 - 2 1 HHCCT BUN/Creat SerPl 29.0 Ratio Above high normal 05/20/2025 10 - 25 HHCCT Sodium SerPl-sCnc 137.0 mmol/L 05/20/2025 136 - 14 5 HHCCT CO2 SerPl-sCnc 25.0 mmol/L 05/20/2025 22 - 33 HH CCT Calcium SerPl-mCnc 8.7 mg/dL 05/20/2025 8.7 - 10.5 HHCCT Creat SerPl-mCnc 0.8 mg/dL 05/20/2025 0.4 - 1.1 HH CCT Potassium SerPl-sCnc 3.5 mmol/L 05/20/2025 3.4 - 5.3 HHCCT WBC num Bld Auto 7.0 Thou/uL 05/20/2025 4 - 11 HHCCT Hgb Bld-mCnc 8.8 g/dL Below low normal 05/20/2025 11.7 - 15 .7 HHCCT MCHC RBC Auto-mCnc 33.0 g/dL 05/20/2025 30 - 36 HHCCT MCH RBC Qn Auto 28.2 pg 05/20/2025 27 - [address] RBC num Bld Auto 3.12 Mil/uL Below low normal 05/20/2025 4 - 5.4 HHCCT Hct VFr Bld Auto 26.7 % Below low normal 05/20/2025 35 - 47 HHCCT MCV RBC Auto 86.0 fL 05/20/2025 80 - 100 H[facility]CT Platelet num Bld Auto 201.0 Thou/uL 05/20/2025 150 - 450 HHCCT PMV Bld Auto 10.1 fL 05/20/2025 7.5 - 12.5 HHCCT RDW RBC Auto-Rto 16.5 % Above high normal 05/20/2025 11.5 - 14.5 HHCCT Potassium SerPl-sCnc 3.3 mmol/L Below low normal 05/19/2025 3.4 - 5.3 HHCCT Calcium SerPl-mCnc 8.4 mg/dL Below low normal 05/19/2025 8.7 - 10.5 HHCCT Glucose SerPl-mCnc 85.0 mg/dL 05/19/2025 65 - 99 HHCCT GFR/BSA.pred SerPlBld [id number] 81.0 05/19/2025 59 - HHCCT BUN SerPl-mCnc 18.0 mg/dL 05/19/2025 8 - [address] Sodium SerPl-sCnc 138.0 mmol/L 05/19/2025 136 - 14 5 HHCCT CO2 SerPl-sCnc 24.0 mmol/L 05/19/2025 22 - 33 HH CCT BUN/Creat SerPl 23.0 Ratio 05/19/2025 10 - 25 HH CCT Anion Gap Bld-sCnc 13.0 05/19/2025 7 - 17 HHCCT Creat SerPl-mCnc 0.8 mg/dL 05/19/2025 0.4 - 1.1 HH CCT Chloride SerPl-sCnc 101.0 mmol/L 05/19/2025 98 - 1 07 HHCCT Hct VFr Bld Auto 27.0 % Below low normal 05/19/2025 35 - 47 HHCCT RBC num Bld Auto 3.15 Mil/uL Below low normal 05/19/2025 4 - 5.4 HHCCT MCHC RBC Auto-mCnc 32.6 g/dL 05/19/2025 30 - 36 HHCCT RDW RBC Auto-Rto 16.4 % Above high normal 05/19/2025 11.5 - 14.5 HHCCT MCH RBC Qn Auto 27.9 pg 05/19/2025 27 - [address] WBC num Bld Auto 6.5 Thou/uL 05/19/2025 4 - 11 H[facility]CT Platelet num Bld Auto 189.0 Thou/uL 05/19/2025 150 - 450 HHCCT Hgb Bld-mCnc 8.8 g/dL Below low normal 05/19/2025 11.7 - 15 .7 HHCCT MCV RBC Auto 86.0 fL 05/19/2025 80 - 100 HHCCT PMV Bld Auto 10.3 fL 05/19/2025 7.5 - 12.5 HHCCT Bilirub SerPl-mCnc 0.5 mg/dL 05/18/2025 0.2 - 1 HHCCT Calcium SerPl-mCnc 8.8 mg/dL 05/18/2025 8.7 - 10.5 HHCCT Sodium SerPl-sCnc 138.0 mmol/L 05/18/2025 136 - 14 5 HHCCT Albumin/Glob SerPl 1.1 Ratio 05/18/2025 1 - 3 HHCCT BUN/Creat SerPl 23.0 Ratio 05/18/2025 10 - 25 HH CCT GFR/BSA.pred SerPlBld [id number] >90.0 05/18/2025 59 - HHCCT Globulin Ser Calc-mCnc 3.5 g/dL 05/18/2025 1.5 - 3.9 HHCCT Albumin SerPl-mCnc 3.7 g/dL 05/18/2025 3.4 - 4.8 HHCCT BUN SerPl-mCnc 14.0 mg/dL 05/18/2025 8 - [address] ALP SerPl-cCnc 228.0 U/L Above high normal 05/18/2025 32 - 1 22 HHCCT Creat SerPl-mCnc 0.6 mg/dL 05/18/2025 0.4 - 1.1 HH CCT ALT SerPl-cCnc 13.0 U/L 05/18/2025 10 - 50 HHCC T Glucose SerPl-mCnc 94.0 mg/dL 05/18/2025 65 - 99 HHCCT Potassium SerPl-sCnc 3.4 mmol/L 05/18/2025 3.4 - 5.3 HHCCT CO2 SerPl-sCnc 24.0 mmol/L 05/18/2025 22 - 33 HH CCT Chloride SerPl-sCnc 99.0 mmol/L 05/18/2025 98 - 10 7 HHCCT Prot SerPl-mCnc 7.2 g/dL 05/18/2025 6.3 - 8.[address] AST SerPl-cCnc 40.0 U/L 05/18/2025 10 - 50 HHCC T Anion Gap Bld-sCnc 15.0 05/18/2025 7 - 17 HHCCT PMV Bld Auto 10.0 fL 05/18/2025 7.5 - 12.5 HHCCT Hgb Bld-mCnc 9.8 g/dL Below low normal 05/18/2025 11.7 - 15 .7 HHCCT WBC num Bld Auto 8.1 Thou/uL 05/18/2025 4 - 11 HHCCT RBC num Bld Auto 3.61 Mil/uL Below low normal 05/18/2025 4 - 5.4 HHCCT MCH RBC Qn Auto 27.1 pg 05/18/2025 27 - [address] Hct VFr Bld Auto 30.2 % Below low normal 05/18/2025 35 - 47 HHCCT RDW RBC Auto-Rto 16.0 % Above high normal 05/18/2025 11.5 - 14.5 HHCCT Platelet num Bld Auto 181.0 Thou/uL 05/18/2025 150 - 450 HHCCT MCV RBC Auto 84.0 fL 05/18/2025 80 - 100 HHCCT MCHC RBC Auto-mCnc 32.5 g/dL 05/18/2025 30 - 36 HHCCT Magnesium SerPl-mCnc 1.6 mg/dL 05/17/2025 1.6 - 2.7 HHCCT LDH SerPl L to P-cCnc 137.0 U/L 05/17/2025 120 - 260 HHCCT Phosphate SerPl-mCnc 2.2 mg/dL Below low normal 05/17/2025 2.7 - 4.5 HHCCT Prot SerPl-mCnc 6.3 g/dL 05/17/2025 6.3 - 8.[address] Sodium SerPl-sCnc 141.0 mmol/L 05/17/2025 136 - 14 5 HHCCT Anion Gap Bld-sCnc 11.0 05/17/2025 7 - 17 HHCCT GFR/BSA.pred SerPlBld [id number] >90.0 05/17/2025 59 - HHCCT Calcium SerPl-mCnc 8.2 mg/dL Below low normal 05/17/2025 8.7 - 10.5 HHCCT Glucose SerPl-mCnc 86.0 mg/dL 05/17/2025 65 - 99 HHCCT CO2 SerPl-sCnc 24.0 mmol/L 05/17/2025 22 - 33 HH CCT Potassium SerPl-sCnc 3.0 mmol/L Below low normal 05/17/2025 3.4 - 5.3 HHCCT Chloride SerPl-sCnc 106.0 mmol/L 05/17/2025 98 - 1 07 HHCCT BUN/Creat SerPl 16.0 Ratio 05/17/2025 10 - 25 HH CCT BUN SerPl-mCnc 8.0 mg/dL 05/17/2025 8 - 21 HH[facility] T Creat SerPl-mCnc 0.5 mg/dL 05/17/2025 0.4 - 1.1 HH CCT Prothrombin time 17.1 seconds Above high normal 05/17/2025 1 0 - 13.5 HHCCT INR PPP 1.5 05/17/2025 HHCCT Anticoagulant NO ANTI COAGULANT MEDS 05/17/2025 HHCCT D dimer FEU PPP-mCnc 344.0 ng/mL DDU Above high normal 05/17/2025 - 230 H[facility]CT Fibrinogen PPP-mCnc 179.0 mg/dL 05/17/2025 148 - 4 35 HHCCT aPTT PPP 28.0 seconds 05/17/2025 25 - 36 [facility]CT Anticoagulant NO ANTI COAGULANT MEDS 05[facility]17[facility]20[facility] num Bld Auto 3.07 Mil/uL Below low normal 05/17/2025 4 - 5.4 [facility] RDW RBC Auto-Rto 16.3 % Above high normal 05/17/2025 11.5 - 14.5 [facility] MCV RBC Auto 85.0 fL 05/17/2025 80 - 100 [facility] PMV Bld Auto 9.9 fL 05/17/2025 7.5 - 12.5 [facility] RBC Qn Auto 28.0 pg 05/17/2025 27 - [address] [facility] [address] Platelet num Bld Auto 101.0 Thou/uL Below low normal 05/17/2025 150 - 450 [facility] WBC num Bld Auto 6.4 Thou/uL 05/17/2025 4 - 11 [facility] Hct VFr Bld Auto 26.1 % Below low normal 05/17/2025 35 - 47 [facility] MCHC RBC Auto-mCnc 33.0 g/dL 05/17/2025 30 - 36 [facility] Hgb Bld-mCnc 8.6 g/dL Below low normal 05/17/2025 11.7 - 15 .7 [facility] Monocytes/leuk NFr Fld 38.0 % 05/17/2025 [facility] Color Fld Yellow 05/17/2025 [facility] Cell Fract Fld-Imp The reference interval and other method performance specifications are unavailable for this body fluid. Comparison of the result with concentration in the blood, serum, or plasma is recommended 05/17/2025 [facility] Lymphocyte, Fluid 22.0 % 05/17/2025 [facility] Cell/leuk NFr Fld Manual 8.0 % 05/17/2025 [facility] Appearance Fld Clear 05/17/2025 [facility] Histiocytes/leuk NFr Fld 28.0 % 05/17/2025 [facility] Neutrophil, Fluid 4.0 % 05/17/2025 [facility] RBC num Fld Auto <2000.0 /CUMM 05/16/2025 [facility] Nuc cell num Fld Auto 96.0 /CUMM 05/16/2025 [facility] Prot Fld-mCnc 2.3 g/dL 05/16/2025 [facility] Fluid Source Pleural Cavity, Left 05/16/2025 [facility] Glucose Fld-mCnc 84.0 mg/dL 05/16/2025 H [facility] Fluid Source Pleural Cavity, Left 05/16/2025 [facility] LDH Fld L to P-cCnc 51.0 U/L 05/16/2025 [facility] Fluid Source Pleural Cavity, Left 05/16/2025 [facility] Phosphate SerPl-mCnc 1.8 mg/dL Below low normal 05/16/2025 2.7 - 4.5 [facility] Magnesium SerPl-mCnc 1.2 mg/dL Below low normal 05/16/2025 1.6 - 2.7 [facility] BUN/Creat SerPl 18.0 Ratio 05/16/2025 10 - 25 HH CCT Creat SerPl-mCnc 0.4 mg/dL 05/16/2025 0.4 - 1.1 HH CCT Anion Gap Bld-sCnc 13.0 05/16/2025 7 - 17 [facility] GFR/BSA.pred SerPlBld [id number] >90.0 05/16/2025 59 - HHCCT BUN SerPl-mCnc 7.0 mg/dL Below low normal 05/16/2025 8 - 21 [facility] CO2 SerPl-sCnc 20.0 mmol/L Below low normal 05/16/2025 22 - 33 [facility] Glucose SerPl-mCnc 74.0 mg/dL 05/16/2025 65 - 99 [facility] Sodium SerPl-sCnc 138.0 mmol/L 05/16/2025 136 - 14 5 [facility]CT Calcium SerPl-mCnc 8.0 mg/dL Below low normal 05/16/2025 8.7 - 10.5 H[facility]CT Potassium SerPl-sCnc 3.7 mmol/L 05/16/2025 3.4 - 5.3 H[facility]CT Chloride SerPl-sCnc 105.0 mmol/L 05/16/2025 98 - 1 07 H[facility]CT D dimer FEU PPP-mCnc 298.0 ng/mL DDU Above high normal 05/16/2025 - 230 [facility] aPTT PPP 29.0 seconds 05/16/2025 25 - 36 [facility]CT Anticoagulant NO ANTI COAGULANT MEDS 05/16/2025 H[facility]CT Fibrinogen PPP-mCnc 173.0 mg/dL 05/16/2025 148 - 4 35 H[facility]CT TT imm Bovine Thrombin PPP 18.1 seconds 05/16/2025 12.7 - 19.2 H[facility]CT Anticoagulant NO ANTI COAGULANT MEDS 05/16/2025 HHCCT Prothrombin time 16.1 seconds Above high normal 05/16/2025 1 0 - 13.5 HHCCT INR PPP 1.4 05/16/2025 [facility]CT Anticoagulant NO ANTI COAGULANT MEDS 05/16/2025 H[facility]CT MCHC RBC Auto-mCnc 32.9 g/dL 05/16/2025 30 - 36 [facility] Hct VFr Bld Auto 28.3 % Below low normal 05/16/2025 35 - 47 [facility] Hgb Bld-mCnc 9.3 g/dL Below low normal 05/16/2025 11.7 - 15 .7 H[facility]CT PMV Bld Auto 10.6 fL 05/16/2025 7.5 - 12.5 H[facility]CT WBC num Bld Auto 6.2 Thou/uL 05/16/2025 4 - 11 [facility] MCV RBC Auto 86.0 fL 05/16/2025 80 - 100 [facility] RBC num Bld Auto 3.3 Mil/uL Below low normal 05/16/2025 4 - 5.4 H[facility]CT RDW RBC Auto-Rto 16.7 % Above high normal 05/16/2025 11.5 - 14.5 [facility] Platelet num Bld Auto 65.0 Thou/uL Below low normal 05/16/2025 150 - 450 H[facility]CT MCH RBC Qn Auto 28.2 pg 05/16/2025 27 - [address] Immature Platelet Fraction 5.7 % 05/16/2025 1.2 - 8.6 HHCCT Phosphate SerPl-mCnc 1.7 mg/dL Below low normal 05/15/2025 2.7 - 4.5 HHCCT CRP SerPl-mCnc 2.18 mg/dL Above high normal 05/15/2025 0 - 0 .49 H[facility]CT TT imm Bovine Thrombin PPP 21.3 seconds Above high normal 05/15/2025 12.7 - 19.2 H[facility]CT Anticoagulant NO ANTI COAGULANT MEDS 05/15/2025 HHCCT INR PPP 1.4 05/15/2025 HHCCT Prothrombin time 16.1 seconds Above high normal 05/15/2025 1 0 - 13.5 HHCCT Anticoagulant NO ANTI COAGULANT MEDS 05/15/2025 H[facility]CT Fibrinogen PPP-mCnc 150.0 mg/dL 05/15/2025 148 - 4 35 H[facility]CT aPTT PPP 28.0 seconds 05/15/2025 25 - 36 [facility]CT Anticoagulant NO ANTI COAGULANT MEDS 05/15/2025 HHCCT D dimer FEU PPP-mCnc 257.0 ng/mL DDU Above high normal 05/15/2025 - 230 [facility]CT Chloride SerPl-sCnc 109.0 mmol/L Above high normal 98 - 107 H[facility]CT Albumin SerPl-mCnc 3.0 g/dL Below low normal 05/15/2025 3.4 - 4.8 H[facility]CT Calcium SerPl-mCnc 7.8 mg/dL Below low normal 05/15/2025 8.7 - 10.5 HHCCT Albumin/Glob SerPl 1.2 Ratio 05/15/2025 1 - 3 H[facility]CT BUN/Creat SerPl 20.0 Ratio 05/15/2025 10 - 25 HH CCT GFR/BSA.pred SerPlBld VPK-[id number]-IgYWkc >90.0 05/15/2025 59 - HHCCT CO2 SerPl-sCnc 19.0 mmol/L Below low normal 05/15/2025 22 - 33 H[facility]CT Glucose SerPl-mCnc 73.0 mg/dL 05/15/2025 65 - 99 HHCCT BUN SerPl-mCnc 10.0 mg/dL 05/15/2025 8 - [address] Creat SerPl-mCnc 0.5 mg/dL 05/15/2025 0.4 - 1.1 HH CCT Globulin Ser Calc-mCnc 2.6 g/dL 05/15/2025 1.5 - 3.9 HHCCT Sodium SerPl-sCnc 139.0 mmol/L 05/15/2025 136 - 14 5 HHCCT Anion Gap Bld-sCnc 11.0 05/15/2025 7 - 17 H[facility]CT Prot SerPl-mCnc 5.6 g/dL Below low normal 05/15/2025 6.3 - 8.3 HHCCT Potassium SerPl-sCnc 3.8 mmol/L 05/15/2025 3.4 - 5.3 HHCCT AST SerPl-cCnc 40.0 U/L 05/15/2025 10 - 50 [facility] T Bilirub SerPl-mCnc 0.5 mg/dL 05/15/2025 0.2 - 1 HHCCT ALT SerPl-cCnc 9.0 U/L Below low normal 05/15/2025 10 - 50 H[facility]CT ALP SerPl-cCnc 228.0 U/L Above high normal 05/15/2025 32 - 1 22 H[facility]CT Basophils/leuk NFr Bld Auto 1.1 % 05/15/2025 H[facility]CT Neutrophils num Bld Auto 4.42 Thou/uL 05/15/2025 2 - 7.5 H[facility]CT Hct VFr Bld Auto 24.0 % Below low normal 05/15/2025 35 - 47 [facility]CT RDW RBC Auto-Rto 17.1 % Above high normal 05/15/2025 11.5 - 14.5 HHCCT PMV Bld Auto 10.9 fL 05/15/2025 7.5 - 12.5 H[facility]CT Lymphocytes/leuk NFr Bld Auto 22.6 % 05/15/2025 H[facility]CT Eosinophil num Bld Auto 0.24 Thou/uL 05/15/2025 0 - 0.7 [facility]CT Lymphocytes num Bld Auto 1.61 Thou/uL 05/15/2025 1.5 - 4.5 H[facility]CT RBC num Bld Auto 2.81 Mil/uL Below low normal 05/15/2025 4 - 5.4 HHCCT WBC num Bld Auto 7.1 Thou/uL 05/15/2025 4 - 11 [facility]CT MCHC RBC Auto-mCnc 33.3 g/dL 05/15/2025 30 - 36 [facility]CT Platelet num Bld Auto 38.0 Thou/uL Below low normal 05/15/2025 150 - 450 H[facility]CT Monocytes num Bld Auto 0.72 Thou/uL 05/15/2025 0.2 - 1.5 H[facility]CT Imm Granulocytes num Bld Auto 0.04 Thou/uL 05/15/2025 0 - 0.1 H[facility]CT MCV RBC Auto 85.0 fL 05/15/2025 80 - 100 [facility]CT Immature Platelet Fraction 8.8 % Above high normal 05/15/2025 1.2 - 8.6 H[facility]CT Monocytes/leuk NFr Bld Auto 10.1 % 05/15/2025 [facility]CT Imm Granulocytes/leuk NFr Bld Auto 0.6 % 05/15/2025 H[facility]CT MCH RBC Qn Auto 28.5 pg 05/15/2025 27 - [address] [facility] [address] Eosinophil/leuk NFr Bld Auto 3.4 % 05/15/2025 HHCCT Hgb Bld-mCnc 8.0 g/dL Below low normal 05/15/2025 11.7 - 15 .7 [facility]CT Neutrophils/leuk NFr Bld Auto 62.2 % 05/15/2025 H[facility]CT Basophils num Bld Auto 0.08 Thou/uL 05/15/2025 0 - 0.2 HHCCT Hct VFr Bld Auto 24.1 % Below low normal 05/14/2025 35 - 47 H[facility]CT RBC num Bld Auto 2.85 Mil/uL Below low normal 05/14/2025 4 - 5.4 HHCCT RDW RBC Auto-Rto 16.8 % Above high normal 05/14/2025 11.5 - 14.5 HHCCT MCH RBC Qn Auto 27.7 pg 05/14/2025 27 - [address] [facility] [address] Hgb Bld-mCnc 7.9 g/dL Below low normal 05/14/2025 11.7 - 15 .7 HHCCT MCV RBC Auto 85.0 fL 05/14/2025 80 - 100 H[facility]CT Immature Platelet Fraction 7.2 % 05/14/2025 1.2 - 8.6 HHCCT Platelet num Bld Auto 37.0 Thou/uL Below low normal 05/14/2025 150 - 450 H[facility]CT MCHC RBC Auto-mCnc 32.8 g/dL 05/14/2025 30 - 36 HHCCT PMV Bld Auto 11.6 fL 05/14/2025 7.5 - 12.5 HHCCT WBC num Bld Auto 8.0 Thou/uL 05/14/2025 4 - 11 H[facility]CT BUN SerPl-mCnc 10.0 mg/dL 05/14/2025 8 - [address] CO2 SerPl-sCnc 19.0 mmol/L Below low normal 05/14/2025 22 - 33 HHCCT GFR/BSA.pred SerPlBld [id number]-[id number] >90.0 05/14/2025 59 - HHCCT Calcium SerPl-mCnc 7.5 mg/dL Below low normal 05/14/2025 8.7 - 10.5 HHCCT Anion Gap Bld-sCnc 9.0 05/14/2025 7 - 17 H[facility]CT Chloride SerPl-sCnc 111.0 mmol/L Above high normal 98 - 107 HHCCT Creat SerPl-mCnc 0.4 mg/dL 05/14/2025 0.4 - 1.1 HH CCT Sodium SerPl-sCnc 139.0 mmol/L 05/14/2025 136 - 14 5 HHCCT Glucose SerPl-mCnc 97.0 mg/dL 05/14/2025 65 - 99 H[facility]CT BUN/Creat SerPl 25.0 Ratio 05/14/2025 10 - 25 HH CCT Potassium SerPl-sCnc 4.1 mmol/L 05/14/2025 3.4 - 5.3 HHCCT Magnesium SerPl-mCnc 1.7 mg/dL 05/14/2025 1.6 - 2.7 HHCCT Phosphate SerPl-mCnc 2.1 mg/dL Below low normal 05/14/2025 2.7 - 4.5 HHCCT Eosinophil/leuk NFr Bld Auto 3.4 % 05/14/2025 H[facility]CT Neutrophils/leuk NFr Bld Auto 64.9 % 05/14/2025 H[facility]CT Eosinophil num Bld Auto 0.25 Thou/uL 05/14/2025 0 - 0.7 HHCCT Imm Granulocytes/leuk NFr Bld Auto 0.7 % 05/14/2025 HHCCT Lymphocytes num Bld Auto 1.48 Thou/uL Below low normal 05/14/2025 1.5 - 4.5 HHCCT Lymphocytes/leuk NFr Bld Auto 20.3 % 05/14/2025 H[facility]CT Neutrophils num Bld Auto 4.73 Thou/uL 05/14/2025 2 - 7.5 HHCCT Imm Granulocytes num Bld Auto 0.05 Thou/uL 05/14/2025 0 - 0.1 HHCCT Basophils num Bld Auto 0.06 Thou/uL 05/14/2025 0 - 0.2 HHCCT Monocytes num Bld Auto 0.72 Thou/uL 05/14/2025 0.2 - 1.5 HHCCT Monocytes/leuk NFr Bld Auto 9.9 % 05/14/2025 HHCCT Basophils/leuk NFr Bld Auto 0.8 % 05/14/2025 HHCCT D dimer FEU PPP-mCnc 263.0 ng/mL DDU Above high normal 05/14/2025 - 230 H[facility]CT Fibrinogen PPP-mCnc 123.0 mg/dL Below low normal 05/14/2025 148 - 435 H[facility]CT Prothrombin time 16.5 seconds Above high normal 05/14/2025 1 0 - 13.5 HHCCT INR PPP 1.4 05/14/2025 HHCCT Anticoagulant NO ANTI COAGULANT MEDS 05/14/2025 HHCCT aPTT PPP 29.0 seconds 05/14/2025 25 - 36 H[facility]CT Anticoagulant NO ANTI COAGULANT MEDS 05/14/2025 HHCCT Ferritin SerPl-mCnc 657.0 ug/L Above high normal 05/14/2025 30 - 400 HHCCT Trigl SerPl-mCnc 88.0 mg/dL 05/14/2025 - 150 H HCCT MCHC RBC Auto-mCnc 32.2 g/dL 05/14/2025 30 - 36 H[facility]CT Platelet num Bld Auto 43.0 Thou/uL Below low normal 05/14/2025 150 - 450 HHCCT RDW RBC Auto-Rto 17.3 % Above high normal 05/14/2025 11.5 - 14.5 HHCCT PMV Bld Auto 11.9 fL 05/14/2025 7.5 - 12.5 HHCCT RBC num Bld Auto 2.42 Mil/uL Below low normal 05/14/2025 4 - 5.4 HHCCT MCV RBC Auto 85.0 fL 05/14/2025 80 - 100 H[facility]CT Immature Platelet Fraction 5.3 % 05/14/2025 1.2 - 8.6 HHCCT WBC num Bld Auto 7.3 Thou/uL 05/14/2025 4 - 11 HHCCT MCH RBC Qn Auto 27.3 pg 05/14/2025 27 - [address] [facility] [address] Hgb Bld-mCnc 6.6 g/dL Below low normal 05/14/2025 11.7 - 15 .7 HHCCT Hct VFr Bld Auto 20.5 % Below low normal 05/14/2025 35 - 47 CCT POC Glucose 102.0 mg/dL Above high normal 05/14/2025 65 - 99 CCT MCHC RBC Auto-mCnc 33.0 g/dL 05/13/2025 30 - 36 HHCCT MCV RBC Auto 85.0 fL 05/13/2025 80 - 100 H[facility]CT Platelet num Bld Auto 60.0 Thou/uL Below low normal 05/13/2025 150 - 450 H[facility]CT RBC num Bld Auto 2.57 Mil/uL Below low normal 05/13/2025 4 - 5.4 HHCCT Hgb Bld-mCnc 7.2 g/dL Below low normal 05/13/2025 11.7 - 15 .7 HHCCT Hct VFr Bld Auto 21.8 % Below low normal 05/13/2025 35 - 47 CCT MCH RBC Qn Auto 28.0 pg 05/13/2025 27 - [address] [facility] [address] PMV Bld Auto 11.2 fL 05/13/2025 7.5 - 12.5 HHCCT WBC num Bld Auto 8.9 Thou/uL 05/13/2025 4 - 11 HHCCT RDW RBC Auto-Rto 17.2 % Above high normal 05/13/2025 11.5 - 14.5 HHCCT Immature Platelet Fraction 7.0 % 05/13/2025 1.2 - 8.6 HHCCT POC Glucose 100.0 mg/dL Above high normal 05/13/2025 65 - 99 CCT POC Glucose 120.0 mg/dL Above high normal 05/13/2025 65 - 99 CCT POC Glucose 114.0 mg/dL Above high normal 05/13/2025 65 - 99 CCT Bilirub SerPl-mCnc 0.6 mg/dL 05/13/2025 0.2 - 1 HHCCT ALP SerPl-cCnc 197.0 U/L Above high normal 05/13/2025 32 - 1 22 HHCCT Globulin Ser Calc-mCnc 2.4 g/dL 05/13/2025 1.5 - 3.9 HHCCT Bilirub Direct SerPl-mCnc 0.4 mg/dL Above high normal 05/13/2025 0 - 0.2 HHCCT Prot SerPl-mCnc 5.4 g/dL Below low normal 05/13/2025 6.3 - 8.3 HHCCT ALT SerPl-cCnc 7.0 U/L Below low normal 05/13/2025 10 - 50 H[facility]CT Albumin/Glob SerPl 1.3 Ratio 05/13/2025 1 - 3 HHCCT AST SerPl-cCnc 38.0 U/L 05/13/2025 10 - 50 [facility] T Albumin SerPl-mCnc 3.0 g/dL Below low normal 05/13/2025 3.4 - 4.8 H[facility]CT RBC num Bld Auto 2.95 Mil/uL Below low normal 05/13/2025 4 - 5.4 HHCCT MCV RBC Auto 84.0 fL 05/13/2025 80 - 100 [facility]CT Platelet num Bld Auto 17.0 Thou/uL Critically low 05/13/2025 150 - 450 [facility]CT Immature Platelet Fraction 13.3 % Above high normal 05/13/2025 1.2 - 8.6 HHCCT WBC num Bld Auto 9.0 Thou/uL 05/13/2025 4 - 11 H[facility]CT RDW RBC Auto-Rto 17.2 % Above high normal 05/13/2025 11.5 - 14.5 HHCCT Hgb Bld-mCnc 8.2 g/dL Below low normal 05/13/2025 11.7 - 15 .7 HHCCT MCHC RBC Auto-mCnc 33.1 g/dL 05/13/2025 30 - 36 HHCCT Hct VFr Bld Auto 24.8 % Below low normal 05/13/2025 35 - 47 H[facility]CT MCH RBC Qn Auto 27.8 pg 05/13/2025 27 - [address] Phosphate SerPl-mCnc 1.1 mg/dL Critically low 05/13/2025 2.7 - 4.5 HHCCT Magnesium SerPl-mCnc 1.6 mg/dL 05/13/2025 1.6 - 2.7 HHCCT BUN SerPl-mCnc 9.0 mg/dL 05/13/2025 8 - 21 [facility] T Potassium SerPl-sCnc 3.5 mmol/L 05/13/2025 3.4 - 5.3 HHCCT Glucose SerPl-mCnc 112.0 mg/dL Above high normal 05/13/2025 65 - 99 HHCCT CO2 SerPl-sCnc 19.0 mmol/L Below low normal 05/13/2025 22 - 33 HHCCT Sodium SerPl-sCnc 137.0 mmol/L 05/13/2025 136 - 14 5 HHCCT Anion Gap Bld-sCnc 10.0 05/13/2025 7 - 17 HHCCT Chloride SerPl-sCnc 108.0 mmol/L Above high normal 5 98 - 107 HHCCT Creat SerPl-mCnc 0.6 mg/dL 05/13/2025 0.4 - 1.1 HH CCT BUN/Creat SerPl 15.0 Ratio 05/13/2025 10 - 25 HH CCT Calcium SerPl-mCnc 7.3 mg/dL Below low normal 05/13/2025 8.7 - 10.5 HHCCT GFR/BSA.pred SerPlBld DAQ-QSP-[id number] >90.0 05/13/2025 59 - HHCCT TT imm Bovine Thrombin PPP 23.5 seconds Above high normal 05/13/2025 12.7 - 19.2 HHCCT Anticoagulant NO ANTI COAGULANT MEDS 05/13/2025 HHCCT Fibrinogen PPP-mCnc 98.0 mg/dL Critically low 05/13/2025 148 - 435 HHCCT Prothrombin time 18.0 seconds Above high normal 05/13/2025 1 0 - 13.5 HHCCT INR PPP 1.6 05/13/2025 HHCCT Anticoagulant NO ANTI COAGULANT MEDS 05/13/2025 HHCCT D dimer FEU PPP-mCnc 401.0 ng/mL DDU Above high normal 05/13/2025 - 230 HHCCT POC Glucose 108.0 mg/dL Above high normal 05/13/2025 65 - 99 H[facility]CT POC Glucose 117.0 mg/dL Above high normal 05/13/2025 65 - 99 HHCCT Anion Gap Bld-sCnc 11.0 05/13/2025 7 - 17 HHCCT BUN SerPl-mCnc 9.0 mg/dL 05/13/2025 8 - 21 [facility] T Chloride SerPl-sCnc 109.0 mmol/L Above high normal 98 - 107 HHCCT CO2 SerPl-sCnc 17.0 mmol/L Below low normal 05/13/2025 22 - 33 HHCCT Calcium SerPl-mCnc 7.2 mg/dL Below low normal 05/13/2025 8.7 - 10.5 HHCCT Sodium SerPl-sCnc 137.0 mmol/L 05/13/2025 136 - 14 5 HHCCT Glucose SerPl-mCnc 107.0 mg/dL Above high normal 05/13/2025 65 - 99 HHCCT Creat SerPl-mCnc 0.6 mg/dL 05/13/2025 0.4 - 1.1 HH CCT BUN/Creat SerPl 15.0 Ratio 05/13/2025 10 - 25 HH CCT Potassium SerPl-sCnc 3.6 mmol/L 05/13/2025 3.4 - 5.3 HHCCT GFR/BSA.pred SerPlBld VCD-UCU-IcZNwc >90.0 05/13/2025 59 - HHCCT Magnesium SerPl-mCnc 1.7 mg/dL 05/13/2025 1.6 - 2.7 HHCCT Phosphate SerPl-mCnc 1.3 mg/dL Below low normal 05/13/2025 2.7 - 4.5 HHCCT POC Glucose 113.0 mg/dL Above high normal 05/12/2025 65 - 99 HHCCT POC Glucose 97.0 mg/dL 05/12/2025 65 - 99 H[facility]CT POC Glucose 117.0 mg/dL Above high normal 05/12/2025 65 - 99 HHCCT POC Glucose 119.0 mg/dL Above high normal 05/12/2025 65 - 99 HHCCT POC Glucose 115.0 mg/dL Above high normal 05/12/2025 65 - 99 HHCCT AST SerPl-cCnc 51.0 U/L Above high normal 05/12/2025 10 - 5 0 HHCCT Prot SerPl-mCnc 5.6 g/dL Below low normal 05/12/2025 6.3 - 8.3 HHCCT Albumin/Glob SerPl 1.2 Ratio 05/12/2025 1 - 3 HHCCT Anion Gap Bld-sCnc 11.0 05/12/2025 7 - 17 HHCCT ALP SerPl-cCnc 178.0 U/L Above high normal 05/12/2025 32 - 1 22 HHCCT BUN/Creat SerPl 13.0 Ratio 05/12/2025 10 - 25 HH CCT Creat SerPl-mCnc 0.6 mg/dL 05/12/2025 0.4 - 1.1 HH CCT Potassium SerPl-sCnc 3.2 mmol/L Below low normal 05/12/2025 3.4 - 5.3 HHCCT Bilirub SerPl-mCnc 1.0 mg/dL 05/12/2025 0.2 - 1 HHCCT Chloride SerPl-sCnc 105.0 mmol/L 05/12/2025 98 - 1 07 HHCCT GFR/BSA.pred SerPlBld NIA-HHS-UmTRbm >90.0 05/12/2025 59 - HHCCT ALT SerPl-cCnc 8.0 U/L Below low normal 05/12/2025 10 - 50 HHCCT CO2 SerPl-sCnc 19.0 mmol/L Below low normal 05/12/2025 22 - 33 HHCCT Glucose SerPl-mCnc 116.0 mg/dL Above high normal 05/12/2025 65 - 99 HHCCT Sodium SerPl-sCnc 135.0 mmol/L Below low normal 05/12/2025 1 36 - 145 HHCCT Albumin SerPl-mCnc 3.1 g/dL Below low normal 05/12/2025 3.4 - 4.8 HHCCT Globulin Ser Calc-mCnc 2.5 g/dL 05/12/2025 1.5 - 3.9 HHCCT Calcium SerPl-mCnc 7.4 mg/dL Below low normal 05/12/2025 8.7 - 10.5 HHCCT BUN SerPl-mCnc 8.0 mg/dL 05/12/2025 8 - 21 [facility] T Phosphate SerPl-mCnc 1.6 mg/dL Below low normal 05/12/2025 2.7 - 4.5 HHCCT Magnesium SerPl-mCnc 2.0 mg/dL 05/12/2025 1.6 - 2.7 HHCCT Fibrinogen PPP-mCnc 80.0 mg/dL Critically low 05/12/2025 148 - 435 HHCCT aPTT PPP 34.0 seconds 05/12/2025 25 - 36 HHCCT Anticoagulant NO ANTI COAGULANT MEDS 05/12/2025 HHCCT D dimer FEU PPP-mCnc 285.0 ng/mL DDU Above high normal 05/12/2025 - 230 [facility]CT TT imm Bovine Thrombin PPP 24.1 seconds Above high normal 05/12/2025 12.7 - 19.2 HHCCT Anticoagulant NO ANTI COAGULANT MEDS 05/12/2025 HHCCT INR PPP 1.8 05/12/2025 HHCCT Prothrombin time 20.4 seconds Above high normal 05/12/2025 1 0 - 13.5 HHCCT Anticoagulant NO ANTI COAGULANT MEDS 05/12/2025 HHCCT Lactate SerPl-sCnc 1.9 mmol/L 05/12/2025 0.5 - 1.9 HHCCT Hct VFr Bld Auto 25.9 % Below low normal 05/12/2025 35 - 47 H[facility]CT Eosinophil/leuk NFr Bld Auto 3.7 % 05/12/2025 HHCCT Lymphocytes/leuk NFr Bld Auto 15.7 % 05/12/2025 HHCCT MCHC RBC Auto-mCnc 32.8 g/dL 05/12/2025 30 - 36 [facility]CT Immature Platelet Fraction 10.5 % Above high normal 05/12/2025 1.2 - 8.6 HHCCT Imm Granulocytes/leuk NFr Bld Auto 0.6 % 05/12/2025 HHCCT Eosinophil num Bld Auto 0.3 Thou/uL 05/12/2025 0 - 0.7 HHCCT RDW RBC Auto-Rto 16.9 % Above high normal 05/12/2025 11.5 - 14.5 HHCCT Neutrophils/leuk NFr Bld Auto 72.5 % 05/12/2025 HHCCT WBC num Bld Auto 8.2 Thou/uL 05/12/2025 4 - 11 H[facility]CT Hgb Bld-mCnc 8.5 g/dL Below low normal 05/12/2025 11.7 - 15 .7 HHCCT MCH RBC Qn Auto 27.6 pg 05/12/2025 27 - [address] RBC num Bld Auto 3.08 Mil/uL Below low normal 05/12/2025 4 - 5.4 HHCCT Monocytes num Bld Auto 0.51 Thou/uL 05/12/2025 0.2 - 1.5 HHCCT Imm Granulocytes num Bld Auto 0.05 Thou/uL 05/12/2025 0 - 0.1 HHCCT Platelet num Bld Auto 22.0 Thou/uL Below low normal 05/12/2025 150 - 450 H[facility]CT Monocytes/leuk NFr Bld Auto 6.2 % 05/12/2025 HHCCT Neutrophils num Bld Auto 5.92 Thou/uL 05/12/2025 2 - 7.5 HHCCT Lymphocytes num Bld Auto 1.28 Thou/uL Below low normal 05/12/2025 1.5 - 4.5 HHCCT Basophils/leuk NFr Bld Auto 1.3 % 05/12/2025 HHCCT MCV RBC Auto 84.0 fL 05/12/2025 80 - 100 HHCCT PMV Bld Auto 11.6 fL 05/12/2025 7.5 - 12.5 HHCCT Basophils num Bld Auto 0.11 Thou/uL 05/12/2025 0 - 0.2 HHCCT POC Glucose 100.0 mg/dL Above high normal 05/12/2025 65 - 99 HHCCT Phosphate SerPl-mCnc 0.7 mg/dL Critically low 05/12/2025 2.7 - 4.5 HHCCT Magnesium SerPl-mCnc 1.3 mg/dL Below low normal 05/12/2025 1.6 - 2.7 HHCCT Sodium SerPl-sCnc 134.0 mmol/L Below low normal 05/12/2025 1 36 - 145 HHCCT BUN/Creat SerPl 13.0 Ratio 05/12/2025 10 - 25 HH CCT Chloride SerPl-sCnc 104.0 mmol/L 05/12/2025 98 - 1 07 HHCCT Anion Gap Bld-sCnc 12.0 05/12/2025 7 - 17 HHCCT Potassium SerPl-sCnc 2.6 mmol/L Critically low 05/12/2025 3.4 - 5.3 HHCCT Calcium SerPl-mCnc 7.3 mg/dL Below low normal 05/12/2025 8.7 - 10.5 HHCCT Glucose SerPl-mCnc 109.0 mg/dL Above high normal 05/12/2025 65 - 99 HHCCT Creat SerPl-mCnc 0.6 mg/dL 05/12/2025 0.4 - 1.1 HH CCT BUN SerPl-mCnc 8.0 mg/dL 05/12/2025 8 - 21 HHCC T GFR/BSA.pred SerPlBld [id number] >90.0 05/12/2025 59 - HHCCT CO2 SerPl-sCnc 18.0 mmol/L Below low normal 05/12/2025 22 - 33 HHCCT POC Glucose 97.0 mg/dL 05/12/2025 65 - 99 HHCCT Lactate SerPl-sCnc 2.6 mmol/L Above high normal 05/12/2025 0 .5 - 1.9 HHCCT POC Glucose 103.0 mg/dL Above high normal 05/11/2025 65 - 99 HHCCT POC Glucose 116.0 mg/dL Above high normal 05/11/2025 65 - 99 HHCCT Lactate SerPl-sCnc 2.2 mmol/L Above high normal 05/11/2025 0 .5 - 1.9 HHCCT POC Glucose 82.0 mg/dL 05/11/2025 65 - 99 HHCCT POC Glucose 80.0 mg/dL 05/11/2025 65 - 99 HHCCT Hgb Bld-mCnc 8.0 g/dL Below low normal 05/11/2025 11.7 - 15 .7 HHCCT RDW RBC Auto-Rto 16.9 % Above high normal 05/11/2025 11.5 - 14.5 HHCCT Hct VFr Bld Auto 23.9 % Below low normal 05/11/2025 35 - 47 HHCCT MCV RBC Auto 85.0 fL 05/11/2025 80 - 100 HHCCT Platelet num Bld Auto 27.0 Thou/uL Below low normal 05/11/2025 150 - 450 HHCCT Immature Platelet Fraction 8.1 % 05/11/2025 1.2 - 8.6 HHCCT MCHC RBC Auto-mCnc 33.5 g/dL 05/11/2025 30 - 36 HHCCT PMV Bld Auto 10.3 fL 05/11/2025 7.5 - 12.5 HHCCT MCH RBC Qn Auto 28.3 pg 05/11/2025 27 - [address] RBC num Bld Auto 2.83 Mil/uL Below low normal 05/11/2025 4 - 5.4 HHCCT WBC num Bld Auto 9.8 Thou/uL 05/11/2025 4 - 11 HHCCT Calcium SerPl-mCnc 7.6 mg/dL Below low normal 05/11/2025 8.7 - 10.5 HHCCT BUN SerPl-mCnc 9.0 mg/dL 05/11/2025 8 - 21 HHCC T BUN/Creat SerPl 13.0 Ratio 05/11/2025 10 - 25 HH CCT Chloride SerPl-sCnc 105.0 mmol/L 05/11/2025 98 - 1 07 HHCCT Sodium SerPl-sCnc 134.0 mmol/L Below low normal 05/11/2025 1 36 - 145 HHCCT Anion Gap Bld-sCnc 11.0 05/11/2025 7 - 17 HHCCT CO2 SerPl-sCnc 18.0 mmol/L Below low normal 05/11/2025 22 - 33 HHCCT Glucose SerPl-mCnc 90.0 mg/dL 05/11/2025 65 - 99 HHCCT Creat SerPl-mCnc 0.7 mg/dL 05/11/2025 0.4 - 1.1 HH CCT Potassium SerPl-sCnc 3.0 mmol/L Below low normal 05/11/2025 3.4 - 5.3 HHCCT GFR/BSA.pred SerPlBld [id number] >90.0 05/11/2025 59 - HHCCT aPTT PPP 36.0 seconds 05/11/2025 25 - 36 HHCCT Anticoagulant NO ANTI COAGULANT MEDS 05/11/2025 HHCCT D dimer FEU PPP-mCnc 273.0 ng/mL DDU Above high normal 05/11/2025 - 230 HHCCT TT imm Bovine Thrombin PPP 27.0 seconds Above high normal 05/11/2025 12.7 - 19.2 HHCCT Anticoagulant NO ANTI COAGULANT MEDS 05/11/2025 HHCCT INR PPP 2.0 05/11/2025 HHCCT Prothrombin time 23.4 seconds Above high normal 05/11/2025 1 0 - 13.5 HHCCT Anticoagulant NO ANTI COAGULANT MEDS 05/11/2025 HHCCT Fibrinogen PPP-mCnc 80.0 mg/dL Critically low 05/11/2025 148 - 435 HHCCT Lactate SerPl-sCnc 3.0 mmol/L Critically high 05/11/2025 0.5 - 1.9 HHCCT POC Glucose 91.0 mg/dL 05/11/2025 65 - 99 HHCCT Lactate SerPl-sCnc 3.0 mmol/L Critically high 05/11/2025 0.5 - 1.9 HHCCT POC Glucose 88.0 mg/dL 05/11/2025 65 - 99 HHCCT Lactate SerPl-sCnc 3.1 mmol/L Critically high 05/11/2025 0.5 - 1.9 HHCCT Transferrin SerPl-mCnc 57.0 mg/dL Below low normal 05/11/2025 200 - 360 HHCCT POC Glucose 85.0 mg/dL 05/11/2025 65 - 99 HHCCT POC Glucose 76.0 mg/dL 05/10/2025 65 - 99 HHCCT POC Glucose 87.0 mg/dL 05/10/2025 65 - 99 HHCCT POC Glucose 88.0 mg/dL 05/10/2025 65 - 99 HHCCT Lactate SerPl-sCnc 3.5 mmol/L Critically high 05/10/2025 0.5 - 1.9 HHCCT POC Glucose 78.0 mg/dL 05/10/2025 65 - 99 HHCCT POC Glucose 60.0 mg/dL Below low normal 05/10/2025 65 - 99 HHCCT POC Glucose 73.0 mg/dL 05/10/2025 65 - 99 HHCCT Pathology Comment Smear review: 05/11/2025 HHCCT Chloride SerPl-sCnc 105.0 mmol/L 05/10/2025 98 - 1 07 HHCCT Anion Gap Bld-sCnc 15.0 05/10/2025 7 - 17 HHCCT Glucose SerPl-mCnc 69.0 mg/dL 05/10/2025 65 - 99 HHCCT BUN SerPl-mCnc 9.0 mg/dL 05/10/2025 8 - 21 HHCC T Creat SerPl-mCnc 0.8 mg/dL 05/10/2025 0.4 - 1.1 HH CCT Sodium SerPl-sCnc 137.0 mmol/L 05/10/2025 136 - 14 5 HHCCT GFR/BSA.pred SerPlBld [id number] 81.0 05/10/2025 59 - HHCCT CO2 SerPl-sCnc 17.0 mmol/L Below low normal 05/10/2025 22 - 33 HHCCT Calcium SerPl-mCnc 7.6 mg/dL Below low normal 05/10/2025 8.7 - 10.5 HHCCT BUN/Creat SerPl 11.0 Ratio 05/10/2025 10 - 25 HH CCT Potassium SerPl-sCnc 3.5 mmol/L 05/10/2025 3.4 - 5.3 HHCCT WBC num Bld Auto 10.7 Thou/uL 05/10/2025 4 - 11 HHCCT RDW RBC Auto-Rto 16.8 % Above high normal 05/10/2025 11.5 - 14.5 HHCCT MCH RBC Qn Auto 28.2 pg 05/10/2025 27 - [address] Hct VFr Bld Auto 25.0 % Below low normal 05/10/2025 35 - 47 HHCCT Immature Platelet Fraction 5.9 % 05/10/2025 1.2 - 8.6 HHCCT RBC num Bld Auto 3.01 Mil/uL Below low normal 05/10/2025 4 - 5.4 HHCCT MCHC RBC Auto-mCnc 34.0 g/dL 05/10/2025 30 - 36 HHCCT Platelet num Bld Auto 36.0 Thou/uL Below low normal 05/10/2025 150 - 450 HHCCT MCV RBC Auto 83.0 fL 05/10/2025 80 - 100 HHCCT Hgb Bld-mCnc 8.5 g/dL Below low normal 05/10/2025 11.7 - 15 .7 HHCCT PMV Bld Auto 9.9 fL 05/10/2025 7.5 - 12.5 HHCCT POC Glucose 136.0 mg/dL Above high normal 05/10/2025 65 - 99 HHCCT POC Glucose 67.0 mg/dL 05/10/2025 65 - 99 HHCCT CO2 SerPl-sCnc 17.0 mmol/L Below low normal 05/10/2025 22 - 33 HHCCT Sodium SerPl-sCnc 137.0 mmol/L 05/10/2025 136 - 14 5 HHCCT Calcium SerPl-mCnc 7.4 mg/dL Below low normal 05/10/2025 8.7 - 10.5 HHCCT Creat SerPl-mCnc 0.7 mg/dL 05/10/2025 0.4 - 1.1 HH CCT Anion Gap Bld-sCnc 13.0 05/10/2025 7 - 17 HHCCT BUN/Creat SerPl 13.0 Ratio 05/10/2025 10 - 25 HH CCT Potassium SerPl-sCnc 3.2 mmol/L Below low normal 05/10/2025 3.4 - 5.3 HHCCT Glucose SerPl-mCnc 74.0 mg/dL 05/10/2025 65 - 99 HHCCT Chloride SerPl-sCnc 107.0 mmol/L 05/10/2025 98 - 1 07 HHCCT GFR/BSA.pred SerPlBld [id number] >90.0 05/10/2025 59 - HHCCT BUN SerPl-mCnc 9.0 mg/dL 05/10/2025 8 - 21 HHCC T Lactate SerPl-sCnc 3.8 mmol/L Critically high 05/10/2025 0.5 - 1.9 HHCCT POC Glucose 108.0 mg/dL Above high normal 05/10/2025 65 - 99 HHCCT POC Glucose 66.0 mg/dL 05/10/2025 65 - 99 HHCCT POC Glucose 70.0 mg/dL 05/09/2025 65 - 99 HHCCT POC Glucose 77.0 mg/dL 05/09/2025 65 - 99 HHCCT Folate SerPl-mCnc 4.6 ng/mL Below low normal 05/09/2025 7.2 - HHCCT Vit B12 SerPl-mCnc 772.0 pg/mL 05/09/2025 243 - 89 4 HHCCT Prealb SerPl-mCnc 6.0 mg/dL Below low normal 05/09/2025 20 - 40 HHCCT Sodium SerPl-sCnc 137.0 mmol/L 05/09/2025 136 - 14 5 HHCCT Chloride SerPl-sCnc 105.0 mmol/L 05/09/2025 98 - 1 07 HHCCT Potassium SerPl-sCnc 2.8 mmol/L Below low normal 05/09/2025 3.4 - 5.3 HHCCT Glucose SerPl-mCnc 72.0 mg/dL 05/09/2025 65 - 99 HHCCT Anion Gap Bld-sCnc 14.0 05/09/2025 7 - 17 HHCCT Creat SerPl-mCnc 0.8 mg/dL 05/09/2025 0.4 - 1.1 HH CCT CO2 SerPl-sCnc 18.0 mmol/L Below low normal 05/09/2025 22 - 33 HHCCT BUN SerPl-mCnc 8.0 mg/dL 05/09/2025 8 - 21 HHCC T GFR/BSA.pred SerPlBld [id number] 81.0 05/09/2025 59 - HHCCT BUN/Creat SerPl 10.0 Ratio 05/09/2025 10 - 25 HH CCT Calcium SerPl-mCnc 7.7 mg/dL Below low normal 05/09/2025 8.7 - 10.5 HHCCT Lactate SerPl-sCnc 3.9 mmol/L Critically high 05/09/2025 0.5 - 1.9 HHCCT Lactate SerPl-sCnc 4.2 mmol/L Critically high 05/09/2025 0.5 - 1.9 HHCCT CO2 SerPl-sCnc 18.0 mmol/L Below low normal 05/09/2025 22 - 33 HHCCT Chloride SerPl-sCnc 106.0 mmol/L 05/09/2025 98 - 1 07 HHCCT Creat SerPl-mCnc 0.7 mg/dL 05/09/2025 0.4 - 1.1 HH CCT Sodium SerPl-sCnc 138.0 mmol/L 05/09/2025 136 - 14 5 HHCCT Potassium SerPl-sCnc 2.4 mmol/L Critically low 05/09/2025 3.4 - 5.3 HHCCT GFR/BSA.pred SerPlBld [id number] >90.0 05/09/2025 59 - HHCCT Anion Gap Bld-sCnc 14.0 05/09/2025 7 - 17 HHCCT BUN SerPl-mCnc 8.0 mg/dL 05/09/2025 8 - 21 HHCC T Calcium SerPl-mCnc 7.7 mg/dL Below low normal 05/09/2025 8.7 - 10.5 HHCCT Glucose SerPl-mCnc 82.0 mg/dL 05/09/2025 65 - 99 HHCCT BUN/Creat SerPl 11.0 Ratio 05/09/2025 10 - 25 HH CCT POC Glucose 80.0 mg/dL 05/09/2025 65 - 99 HHCCT Result Not Detected 05/09/2025 - HHCCT Lactate SerPl-sCnc 4.5 mmol/L Critically high 05/09/2025 0.5 - 1.9 HHCCT Procalcitonin SerPl EIA-mCnc 0.28 ng/mL 05/09/2025 - 0.51 HHCCT Heparin PF4 Antibody Negative 05/09/2025 - HHCCT Haptoglob SerPl-mCnc 65.0 mg/dL 05/09/2025 30 - 200 HHCCT POC Glucose 80.0 mg/dL 05/09/2025 65 - 99 HHCCT Lactate SerPl-sCnc 4.5 mmol/L Critically high 05/09/2025 0.5 - 1.9 HHCCT Magnesium SerPl-mCnc 1.9 mg/dL 05/09/2025 1.6 - 2.7 HHCCT Neutrophils/leuk NFr Bld Auto 85.1 % 05/09/2025 HHCCT Lymphocytes/leuk NFr Bld Auto 10.3 % 05/09/2025 HHCCT Eosinophil/leuk NFr Bld Auto 0.9 % 05/09/2025 HHCCT Lymphocytes num Bld Auto 1.09 Thou/uL Below low normal 05/09/2025 1.5 - 4.5 HHCCT Normocytes Present 05/09/2025 HHCCT Neutrophils num Bld Auto 9.04 Thou/uL Above high normal 05/09/2025 2 - 7.5 HHCCT Imm Granulocytes num Bld Auto 0.07 Thou/uL 05/09/2025 0 - 0.1 HHCCT Eosinophil num Bld Auto 0.1 Thou/uL 05/09/2025 0 - 0.7 HHCCT Monocytes/leuk NFr Bld Auto 2.2 % 05/09/2025 HHCCT Basophils/leuk NFr Bld Auto 0.8 % 05/09/2025 HHCCT Basophils num Bld Auto 0.09 Thou/uL 05/09/2025 0 - 0.2 HHCCT Monocytes num Bld Auto 0.23 Thou/uL 05/09/2025 0.2 - 1.5 HHCCT Normochromic Bld Ql Smear Present 05/09/2025 HHCCT Imm Granulocytes/leuk NFr Bld Auto 0.7 % 05/09/2025 CCT Immature Platelet Fraction 3.8 % 05/09/2025 1.2 - 8.6 HHCCT PMV Bld Auto 9.9 fL 05/09/2025 7.5 - 12.5 HHCCT Hgb Bld-mCnc 8.2 g/dL Below low normal 05/09/2025 11.7 - 15 .7 HHCCT MCHC RBC Auto-mCnc 34.2 g/dL 05/09/2025 30 - 36 HHCCT Hct VFr Bld Auto 24.0 % Below low normal 05/09/2025 35 - 47 HHCCT RBC num Bld Auto 2.87 Mil/uL Below low normal 05/09/2025 4 - 5.4 HHCCT WBC num Bld Auto 10.6 Thou/uL 05/09/2025 4 - 11 HHCCT MCV RBC Auto 84.0 fL 05/09/2025 80 - 100 HHCCT Platelet num Bld Auto 45.0 Thou/uL Below low normal 05/09/2025 150 - 450 HHCCT RDW RBC Auto-Rto 16.6 % Above high normal 05/09/2025 11.5 - 14.5 HHCCT MCH RBC Qn Auto 28.6 pg 05/09/2025 27 - [address] Potassium SerPl-sCnc 2.4 mmol/L Critically low 05/09/2025 3.4 - 5.3 HHCCT Chloride SerPl-sCnc 107.0 mmol/L 05/09/2025 98 - 1 07 HHCCT Glucose SerPl-mCnc 90.0 mg/dL 05/09/2025 65 - 99 HHCCT GFR/BSA.pred SerPlBld [id number]-[id number]-XzKVbw >90.0 05/09/2025 59 - HHCCT Creat SerPl-mCnc 0.7 mg/dL 05/09/2025 0.4 - 1.1 HH CCT Anion Gap Bld-sCnc 16.0 05/09/2025 7 - 17 HHCCT BUN/Creat SerPl 11.0 Ratio 05/09/2025 10 - 25 HH CCT BUN SerPl-mCnc 8.0 mg/dL 05/09/2025 8 - 21 HHCC T Sodium SerPl-sCnc 138.0 mmol/L 05/09/2025 136 - 14 5 HHCCT CO2 SerPl-sCnc 15.0 mmol/L Below low normal 05/09/2025 22 - 33 HHCCT Calcium SerPl-mCnc 7.6 mg/dL Below low normal 05/09/2025 8.7 - 10.5 HHCCT pro BNP, N-terminal 05912.0 pg/mL Above high normal 05/09/20 25 - 125 HHCCT aPTT PPP 44.0 seconds Above high normal 05/09/2025 25 - 36 HHCCT Anticoagulant NO ANTI COAGULANT MEDS 05/09/2025 HHCCT Prothrombin time 25.0 seconds Above high normal 05/09/2025 1 0 - 13.5 HHCCT INR PPP 2.2 05/09/2025 HHCCT Anticoagulant NO ANTI COAGULANT MEDS 05/09/2025 HHCCT Fibrinogen PPP-mCnc 80.0 mg/dL Critically low 05/09/2025 148 - 435 HHCCT LDH SerPl L to P-cCnc 129.0 U/L 05/09/2025 120 - 260 HHCCT Lactate SerPl-sCnc 4.7 mmol/L Critically high 05/09/2025 0.5 - 1.9 HHCCT ALT SerPl-cCnc 5.0 U/L Below low normal 05/09/2025 10 - 50 HHCCT Albumin SerPl-mCnc 3.3 g/dL Below low normal 05/09/2025 3.4 - 4.8 HHCCT ALP SerPl-cCnc 74.0 U/L 05/09/2025 32 - 122 HHCC T Albumin/Glob SerPl 1.7 Ratio 05/09/2025 1 - 3 HHCCT Prot SerPl-mCnc 5.3 g/dL Below low normal 05/09/2025 6.3 - 8.3 HHCCT Globulin Ser Calc-mCnc 2.0 g/dL 05/09/2025 1.5 - 3.9 HHCCT Bilirub SerPl-mCnc 1.4 mg/dL Above high normal 05/09/2025 0. 2 - 1 HHCCT Bilirub Direct SerPl-mCnc 0.7 mg/dL Above high normal 05/09/2025 0 - 0.2 HHCCT AST SerPl-cCnc 15.0 U/L 05/09/2025 10 - 50 HHCC T Prolactin SerPl-mCnc 7.6 ng/mL 05/09/2025 4.8 - 23.3 HHCCT pCO2 BldV 30.0 mmHG Below low normal 05/09/2025 35 - 50 HH CCT pO2 BldV 95.0 mmHG Above high normal 05/09/2025 0 - 60 H HCCT CO2 BldV-sCnc 17.0 mmol/L Below low normal 05/09/2025 23 - 2 9 HHCCT Base deficit BldA-sCnc 8.6 mmol/L 05/09/2025 HHCCT pH BldV 7.34 05/09/2025 7.33 - 7.43 HHCCT Respiratory Information ROOM AIR 05/09/2025 HHCCT MCV RBC Auto 85.0 fL 05/09/2025 80 - 100 HHCCT Immature Platelet Fraction 3.0 % 05/09/2025 1.2 - 8.6 HHCCT Platelet num Bld Auto 45.0 Thou/uL Below low normal 05/09/2025 150 - 450 HHCCT WBC num Bld Auto 11.5 Thou/uL Above high normal 05/09/2025 4 - 11 HHCCT Hct VFr Bld Auto 25.9 % Below low normal 05/09/2025 35 - 47 HHCCT MCH RBC Qn Auto 28.0 pg 05/09/2025 27 - [address] RDW RBC Auto-Rto 16.5 % Above high normal 05/09/2025 11.5 - 14.5 HHCCT PMV Bld Auto 10.1 fL 05/09/2025 7.5 - 12.5 HHCCT MCHC RBC Auto-mCnc 32.8 g/dL 05/09/2025 30 - 36 HHCCT Hgb Bld-mCnc 8.5 g/dL Below low normal 05/09/2025 11.7 - 15 .7 HHCCT RBC num Bld Auto 3.04 Mil/uL Below low normal 05/09/2025 4 - 5.4 HHCCT Magnesium SerPl-mCnc 1.4 mg/dL Below low normal 05/09/2025 1.6 - 2.7 HHCCT BUN SerPl-mCnc 8.0 mg/dL 05/09/2025 8 - 21 HHCC T Glucose SerPl-mCnc 97.0 mg/dL 05/09/2025 65 - 99 HHCCT Potassium SerPl-sCnc 3.4 mmol/L 05/09/2025 3.4 - 5.3 HHCCT CO2 SerPl-sCnc 14.0 mmol/L Below low normal 05/09/2025 22 - 33 HHCCT Sodium SerPl-sCnc 138.0 mmol/L 05/09/2025 136 - 14 5 HHCCT BUN/Creat SerPl 11.0 Ratio 05/09/2025 10 - 25 HH CCT Anion Gap Bld-sCnc 15.0 05/09/2025 7 - 17 HHCCT Creat SerPl-mCnc 0.7 mg/dL 05/09/2025 0.4 - 1.1 HH CCT Calcium SerPl-mCnc 7.8 mg/dL Below low normal 05/09/2025 8.7 - 10.5 HHCCT GFR/BSA.pred SerPlBld [id number]-[id number] >90.0 05/09/2025 59 - HHCCT Chloride SerPl-sCnc 109.0 mmol/L Above high normal 98 - 107 HHCCT Lactate SerPl-sCnc 5.3 mmol/L Critically high 05/09/2025 0.5 - 1.9 HHCCT Encounters Encounter Type Encounter Reason Primary Diagnosis Location Date Inpatient Peritoneal abscess Peritoneal abscess [facility] 05/21/2025 Inpatient Anxiety disorder, unspecified Anxiety disorder, unspecified Hydrocision 05/08/2025 Ambulatory [facility] [place] 05/08/2025 [facility] [facility] [place] 05/08/2025 [facility] [place] 05/08/2025 [facility] [place] 05/08/2025 Care Team Organization Name Specialty Phone Email Start Date End Da te Hydrocision [facility] Primary [facility] 05/09/2025 Hydrocision 05/08/2025 Hydrocision 05/08/2025
--- OUTSIDE RECORDS SUMMARY | 2025-06-16 15:47 | XMS_ITS | Encounter Summary ---
Author Organization [facility] Address [address] [facility] [address] [place] [address] Phone Care Team Providers Care Hospital Laboratory Technician Name Role Phone Deion Asencio MD Primary Care Provider + Nessa iHllman NP Primary Care Provider [phone]- [phone] Lupillo Sinclair MD Unavailable [phone] Encounter Details Date Type Department Care Team (Late st Contact Info) Description 08/03/2023 Procedure Pass Non-Invasive Cardiology [address] [place], [place] [id number] Social History Tobacco Use Types Packs/Day Years Used Date Smoking Tobacco: Every Day Smokeless Tobacco: Never Alcohol Use Standard Drinks/Week Comments No 0 (1 standard drink = 0.6 oz [...] a working camera? Not on file Comments Unknown Sex and Gender Information Value [...] documented as of this encounter Care Teams Hospital Laboratory Technician Relationship Specialty Start Date End Date Deion Asencio MD [address] [place] [address] PCP - General Family Medicine 06/08/18 06/02/24 Nessa Hillman NP [address] [place] [address] PCP - General Nurse Practitioner 06/03/24 Lupillo Sinclair MD [address] [place] [address] Cardiology 12/24/24 documented as of this encounter Additional Source Comments The information contained in this document represents components of the legal health record. It is not the complete legal health record.[facility]
--- OUTSIDE RECORDS SUMMARY | 2025-06-16 15:47 | XMS_ITS | Encounter Summary ---
Author Organization [facility] Address [address] [place] [id number] Phone Care Team Providers Care Radio Operator Name Role Phone Nessa Hillman NP Primary Care Provider [phone] Lupillo Sinclair MD Unavailable [phone] Encounter Details Date Type Department Care Team (Late st Contact Info) Description 08/15/2024 Procedure [place] [facility] [place] [facility] [address] [place] [address] Social History Tobacco Use Types Packs/Day Years [...] with a working camera? Not on file Intimate Partner Violence Answer Date R ecorded Are you denied basic needs s uch as food, clothing, or medical care? No 08/15/2024 In the past 12 months have y ou been in a relationship with a person who hurts, threatens, or tries to control you? No 08/15/2024 Are you denied basic needs s uch as food, clothing, or medical care? No 08/15/2024 In the past 12 months have y ou been in a relationship with a person who hurts, threatens, or tries to control you? No 08/15/2024 Comments No Sex and Gender Information Value [...] documented as of this encounter Care Teams Radio Operator Relationship Specialty Start Date End Date Nessa Hillman NP [address] [place] [address] PCP - General Nurse Practitioner 06/03/24 Lupillo Sinclair MD [address] [address] Cardiology 12/24/24 documented as of this encounter Additional Source Comments The information contained in this document represents components of the legal health record. It is not the complete legal health record.[facility]
--- OUTSIDE RECORDS SUMMARY | 2025-06-16 15:47 | XMS_ITS | Encounter Summary ---
Author Organization [facility] Address [address] [place] [address] Phone Care Team Providers Care Department Administrator Name Role Phone Nessa Hillman NP Primary Care Provider [phone] Lupillo Sinclair MD Unavailable [phone] Encounter Details Date Type Department Care Team (Late st Contact Info) Description 02/17/2025 [place] [facility] [place] [address] [place] [address] Social History Tobacco Use Types Packs/Day Years [...] documented as of this encounter Care Teams Department Administrator Relationship Specialty Start Date End Date Nessa Hillman NP [address] [place] [address] PCP - General Nurse Practitioner 06/03/24 Lupillo Sinclair MD [address] [address] Cardiology 12/24/24 documented as of this encounter Additional Source Comments The information contained in this document represents components of the legal health record. It is not the complete legal health record.[facility]
--- OUTSIDE RECORDS SUMMARY | 2025-06-16 15:47 | XMS_ITS | Encounter Summary ---
Author Organization [facility] Address [address] [facility] [address] [place] [address] Phone Care Team Providers Care Machine Lay Out Worker Name Role Phone Deion Asencio MD Primary Care Provider + Nessa Hillman NP Primary Care Provider [phone] Lupillo Sinclair MD Unavailable [phone] Encounter Details Date Type Department Care Team (Late st Contact Info) Description 07/26/2023 Procedure Pass [facility] [place] [place] [address] Social History Tobacco Use Types Packs/Day Years [...] documented as of this encounter Care Teams Machine Lay Out Worker Relationship Specialty Start Date End Date Deion Asencio MD [address] [place] [address] PCP - General Family Medicine 06/08/18 06/02/24 Nessa Hillman NP [address] [place] [address] PCP - General Nurse Practitioner 06/03/24 Lupillo Sinclair MD [address] [place] [address] Cardiology 12/24/24 documented as of this encounter Additional Source Comments The information contained in this document represents components of the legal health record. It is not the complete legal health record.[facility]
--- OUTSIDE RECORDS SUMMARY | 2025-06-16 15:47 | XMS_ITS | Encounter Summary ---
Author Organization [facility] Address [address] [place] [address] Phone Care Team Providers Care Process Coordinator Name Role Phone Nessa Hillman NP Primary Care Provider [phone] Lupillo Sinclair MD Unavailable [phone] Encounter Details Date Type Department Care Team ([facility] st Contact Info) Description 02/17/2025 Procedure Pass [facility] [place] [address] [facility], [address] [place] [address] Social History Tobacco Use Types Packs/Day Years [...] documented as of this encounter Care Teams Process Coordinator Relationship Specialty Start Date End Date Nessa Hillman NP [address] [place] [address] PCP - General Nurse Practitioner 06/03/24 Lupillo Sinclair MD [address] [address] Cardiology 12/24/24 documented as of this encounter Additional Source Comments The information contained in this document represents components of the legal health record. It is not the complete legal health record.[facility]
--- NOTE | 2025-06-16 16:08 | A.OFFPC_ITS ---
Vital Signs 06/16/25 16:13 Height 5 ft 2 in Weight 102 lb BMI 18.7 BP 90/60 Blood Pressure Location Rt brachial Position Sitting Respiration 16 Pulse 99 Pulse Source Pulse Oximeter Temp 97.6 F Temp Source Oral Pulse Oximetry (%) 97 Oxygen Delivery Method Room Air Intake Visit Reasons: HDF ~ Post hospital discharge FU Intake Note: Pt is here today for her HDF Allergies clams Allergy (Severe, Verified 06/16/25 16:19) Stomach Upset clavulanic acid (Augmentin) Allergy (Unknown, Verified 06/16/25 16:19) GI, Difficulty breathing codeine (CODEINE) Allergy (Unknown, Verified 06/16/25 16:19) SENSITIVITY erythromycin base (Erythromycin Base) Allergy (Unknown, Verified 06/16/25 16:19) GI, DIFF BREATHING Sulfa (Sulfonamide Antibiotics) Allergy (Unknown, Verified 06/16/25 16:19) RASH morphine (MORPHINE) Adverse Reaction (Severe, Verified 06/16/25 16:19) Difficulty Breathing aspirin (Aspirin) Adverse Reaction (Mild, Verified 06/16/25 16:19) STOMACH UPSET melatonin Adverse Reaction (Verified 06/16/25 16:19) Vomiting Medication List - Last Reconciled 06/23/25 by Joi Rebollar MD atorvastatin 20 mg PO DAILY carisoprodol (Soma) 350 mg PO BEDTIME PRN Eliquis (apixaban) 5 mg PO BID NS folic acid 1 mg PO DAILY hydromorphone (Dilaudid) 2 mg PO DAILY PRN magnesium oxide 800 mg (2 x 400 mg (241.3 mg magnesium)) PO BID 30 days metoprolol succinate ER 25 mg PO DAILY mirtazapine 15 mg PO BEDTIME multivitamin with minerals 1 tab PO BEDTIME ondansetron 4 mg PO DAILY PRN pantoprazole 40 mg PO DAILY ramelteon 8 mg PO BEDTIME PRN thiamine HCl (vitamin B1) 50 mg (1/2 x 100 mg) PO DAILY Tobacco use date assessed: 06/16/25 Fall risk assessment: 2 + Falls in past year Last assessed Fall Risk: 06/16/25 Dental Screening Dental Screen Date: 06/16/25 Did you have a dental visit in the last 12 months?: No Did you have a dental problem in the last 6 months where you did not have access to dental care?: No Was dental information given to patient?: Patient has dentist HPI HDF ~ Post hospital discharge FU HPI Details 65-year-old lady with past medical histo ry significant for coronary artery disease, paroxysmal atrial fibrillation on Eliquis, perforated colon due to diverticulitis status post colectomy with hernia repair, revision colostomy and conversion to ileostomy on January 2025, further complicated by chronic intra- abdominal abscess requiring multiple admissions and drainage who presented to [facility] on 04/27/2025 with increased drainage from fistula and admitted for septic shock secondary to intra-abdominal abscesses. Hospital course complicated by altered mental status and new onset seizures. He was then transferred to [facility] for long-term management. She was medically optimized presents to the intermediate unit for comprehensive rehab on 05/21. Rehab course notable for ongoing nausea, acute kidney injury, hypomagnesemia. She was supplemented and given IV fluids. She also was started on mirtazapine and Ativan as needed for reports of decreased appetite and insomnia. During her stay there she was found to have recurrent tachycardia and continued to have high output ileostomy . She received IV recurrent IV fluid boluses as well as IV magnesium. Given worsening epigastric pain radiating to mid back, lipase was ordered and came back extremely high. Was continued on IV fluids with pain meds for suspected pancreatitis. CT of abdomen and pelvis showed no acute findings. Lipase level was monitored and trended down appropriately, down to do 158 from 1175. For her hypomagnesemia she was supplemented with IV magnesium and continued on oral supplementation 800 mg per tablet twice daily. She progressed in her rehab therapies and was then discharged to home in stable condition, had no complaints of any chest pain or shortness of breath, palpitations, no lightheadedness, tolerating diet initially, but now complaining of pain after eating. Still having increased output from her ileostomy with low magnesium levels still on last lab work done patient. She has a VNA going to her home at least twice a day week and is in the process of getting STAFF TRAINING AND DEVELOPMENT MANAGER services, as she still has generalized weakness, unable to stand or walk for long distances,. She is also in the process of applying for long-term disability as she has not been able to work since January of this year. She was prescribed Creon but was unable to get prescription due to its high cost. [facility] Medical History (Updated 06/23/25 @ 00:37 by Joi Rebollar MD) Paroxysmal atrial fibrillation Generalized weakness History of diverticulosis Chronic pancreatitis Hypomagnesemia CAD (coronary artery disease) Atrial flutter History of sigmoidoscopy Multinodular thyroid Chronic vomiting Hypocalcemia Iron deficiency anemia Hyponatremia Acute cholecystitis History of acute cholecystitis History of pancreatitis Pancreatitis Insomnia Bilateral knee pain Polyarthralgia MARKIE (acute kidney injury) Back pain Arthritis History of transfusion of packed red blood cells Anemia Cardiomyopathy MARKIE (acute kidney injury) MARKIE (acute kidney injury) Anxiety Small bowel obstruction Myocardial infarction NSTEMI (non-ST elevated myocardial infarction) NSVT (nonsustained ventricular tachycardia) PVC (premature ventricular contraction) Hypertension Perforated diverticulum Irritable bowel syndrome with constipation Barretts esophagus GERD (gastroesophageal reflux disease) Surgical History (Updated 06/17/25 @ 16:47 by Joi Rebollar MD) History of insertion of tunneled central venous catheter (CVC) with port H/O insertion of cholecystostomy tube Status post embolization of uterine artery S/P colon resection PIC line (peripherally inserted central catheter) removal History of low anterior resection of rectum Status post cardiac catheterization H/O dilation and curettage History of exploratory laparotomy (05/11/23) S/P colostomy Colovesical fistula History of esophagogastroduodenoscopy (EGD) Hx of colonoscopy Family History Father Colon cancer Congestive heart failure Paternal Aunt Colon cancer Mother Congestive heart failure Afib Social History Household Members: None Housing: House Are you a primary animal caregiver to a significant other at home: No Do you presently have visiting nurse or other home services: Yes Alcohol intake: never Comment: Pt refusing bed alarm Patient Tobacco Use Status: Former Tobacco user Tobacco use type: Cigarette Cigarette Packs Per Day: 0.5 Cigarettes Per Day: 10.0 Years Smoked: 25 e-Cigarette/Vaping Use: Former Use Second Hand Smoke Exposure: No Substance Use Type: Marijuana Advance Directives Date on File: 12/29/23 service: No Cognitive needs: No Hearing needs: No Vision needs: Yes Questionnaire Thrive Questionnaire Date Thrive assessed: 12/12/24 I am a: Patient What is your living situation today?: I have a steady place to live Within the past 12 months, did the food you bought not last and you didn't have the money to get more?: Never true Within the past 12 months, did you worry whether your food would run out before you got money to buy more?: Never true Do you have trouble paying for medicines?: No Do you have trouble getting transportation to medical appointments?: No Do you have trouble paying your heating and electricity bill?: No Do you have trouble taking care of your child, family member or friend?: No Do you have trouble with day-to-day activities such as bathing, preparing meals, shopping, managing finances, etc.?: No Are you currently unemployed and looking for a job?: No Are you interested in more education?: No Please select the resources that you would like help with: None Currently or been in a relationship where the following occur: No concerns reported THRIVE Score: 0 ANSHU-7 AMB Questionnaire ANSHU-7 Date ANSHU - 7 assessed: 12/19/24 Source: Developed by Drs. Rashard Wang, Cris Amato, Tone Sheth and colleagues, with an educational lorenzo from [employer]. Review of Systems Const Reports fatigue, Denies fever(s), Denies headache(s), Reports malaise, Reports poor appetite, Reports weakness and Reports weight loss Eyes Reports no additional complaints ENT Reports no additional complaints and Denies headache(s) Card Denies chest pain, Denies palpitations and Denies dyspnea on exertion Resp Denies cough and Denies dyspnea on exertion GI Reports abdominal pain (Aggravated by food intake), Reports bloating, Denies hematochezia, Reports heartburn, Denies nausea and Denies vomiting Denies dysuria and Denies urinary urgency Musc Reports as per HPI, Reports abnormal gait, Reports atrophy, Reports muscle weakness, Denies numbness, Reports stiffness and Denies tingling Skin/Breast Denies new lesions Neuro Reports abnormal gait, Denies headache(s), Denies numbness, Denies tingling and Reports weakness Psych Reports no additional complaints Endo Reports fatigue and Denies palpitations Andreas/Lymph Denies no additional complaints Aller/Immun Reports no additional complaints Physical exam (Primary Care) Vital Signs: Last Vital Signs Temp 97.6 F 06/16/25 16:13 Pulse 99 10/13/25 16:13 Resp 16 06/16/25 16:13 BP 90/60 06/16/25 16:13 Pulse Ox 97 06/16/25 16:13 Oxygen Delivery Method Room Air 06/16/25 16:13 BMI result Body Mass Index 18.7 Tobacco/Smoking Status: Tobacco use Status Tobacco use date assessed 06/16/25 06/16/25 16:12 Patient Tobacco Use Status Former Tobacco user 06/16/25 16:12 Tobacco use type Cigarette 06/16/25 16:12 e-Cigarette/Vaping Use Former Use 06/16/25 16:12 Thrive Assessment: Date of Thrive Assessment Date Thrive assessed 12/12/24 06/16/25 16:12 Currently or been in a relationship where the following occur: No concerns reported Const Other: Accompanied by friend General: no acute distress and alert Nutritional Appearance: underweight Orientation/consciousness: patient oriented x3 Limitations: wheelchair HENMT Ears: hearing grossly normal bilaterally and external ears normal General nose exam: Normal external nose present Mouth: Normal oral and palatal mucosa present, oropharynx normal and moist mucous membranes Eyes General: appearance normal, both eyes and all related structures Neck Neck: Yes full ROM, Yes no lymphadenopathy and Yes supple Resp Effort & Inspection: normal respiratory effort and able to speak in complete sentences Auscultation: clear to auscultation bilaterally Cardio Rate: regular rate Rhythm: regular rhythm Heart sounds: S1 normal heart sound present and S2 normal heart sound present GI Other: Ileostomy present, with a hernia below it Palpation (GI): Soft to palpation and nontender Back/Spine/Pelvis Back: No back tenderness Skin General skin exam: no rashes or lesions noted Neuro General: patient oriented x3, tone normal, moves all extremities and no focal motor deficits Cognition (Neuro): normal cognition Extrem General: Yes full ROM, Yes no joint enlargement, Yes no clubbing, cyanosis or edema and Yes no calf tenderness Psych Appearance: grossly normal and well kempt Mental Status: mental status grossly normal Speech and movement: Normal speech and movement present Affect: normal affect Attitude: cooperative Results Reviewed Results Reviewed: Name: Kia Phelps Age/Sex: 65/F : 1960 Unit#: [id number] Attend Dr: Joi Rebollar MD Re06/12/25 Status: DEP REF Location: [facility] Disch: SPEC : [id number] JOAQUIN: 06/12/25 STATUS: COMP REQ : [id number] RECD: 06/12/[address]: Joi Rebollar MD COMP: 06/12/25 ENTERED: 06/12/[address]: ORDERED: CBC Auto Diff Test Result Flag Reference WBC 11.2 H 4.8-10.8 X10*3/uL RBC 3.32 # L 4.20-5.50 X10*6/uL HGB 9.7 # L 12.0-16.0 g/dl HCT 30.1 # L 37.0-47.0 % MCV 90.7 80.0-98.0 fL MCH 29.2 27.0-33.0 pg MCHC 32.2 31.0-35.0 g/dl RDW 17.8 H 11.0-16.0 % PLT 340 # 160-400 X10*3/uL MPV 9.4 9.4-12.3 fL Neut Pct Auto 69.0 45-73 % ImGran Pct Auto 0.4 0.0-0.4 % Lymp Pct Auto 20.6 20-40 % Pratt Pct Auto 8.0 2-11 % Eos Pct Auto 1.3 0-4 % Baso Pct Auto 0.7 0-2 % NRBC Pct Auto 0.0 0.0-0.2 /100WBC ANC Neut Abs # 7.7 2.0-8.3 x10*3/uL ImGran Abs Auto 0.04 H 0.00-0.03 X10*3/uL Lymph Abs Auto 2.3 1.2-4.9 X10*3/uL Pratt Abs Auto 0.9 0.1-1.2 X10*3/uL Eos Abs Auto 0.2 0.0-0.4 X10*3/uL Baso Abs Auto 0.1 0.0-0.2 X10*3/uL NRBC Abs Auto 0.000 0.0-0.012 X10*3/uL Name: Kia Phelps Age/Sex: 65/F : 1960 Unit#: [id number] Attend Dr: Joi Rebolalr MD Re06/12/25 Status: DEP REF Location: [facility] Disch: SPEC : [id number] JOAQUIN: 06/12/25 STATUS: COMP REQ : [id number] RECD: 06/12/[address]: Joi Rebollar MD COMP: 06/12/25 ENTERED: 06/12/[address] [facility] [address]: ORDERED: BMP, MG, Lip Test Result Flag Reference Sodium 136 135-145 mmol/L Potassium 3.3 3.3-5.1 mmol/L CL 101 96-108 mmol/L CO2 24 22-29 mmol/L Gap 14 12-20 BUN 46 H 9-16 mg/dL Creat 1.49 H 0.5-1.4 mg/dL eGFR 35 Chronic Kidney Disease: Estimated GFR < 60 mL/min/1.73m2 Severe Kidney Disease: Estimated GFR < 15 mL/min/1.73m2 Glucose, Random 114 60-115 mg/dL CA 8.7 # 8.4-10.2 mg/dL Magnesium 1.4 *L 1.6-2.6 mg/dL Critical value for test(s):MAGS Results called to and read back by:DR. LOWE Person calling: ALKASAB Date: 06/12/25 Time:19:30 Lipase 283 H 8-78 U/L Coding Level of Care Code Est Pt Level 4 (13375) Complex EM visit Add On G2211 Diagnoses Increased ileostomy output R19.8; Z93.2 Hypomagnesemia E83.42 Stress-induced cardiomyopathy I51.81 Iron deficiency anemia secondary to inadequate dietary iron intake D50.8 Iron deficiency anemia type: inadequate dietary iron intake Chronic pancreatitis, unspecified pancreatitis type K86.1 Pancreatitis type: unspecified pancreatitis type Abnormal kidney function N28.9 Physical debility R53.81 Generalized weakness R53.1 Paroxysmal atrial fibrillation I48.0 Assessment & Plan Assessment & Plan (1) Increased ileostomy output: Code(s): R19.8 - Other specified symptoms and signs involving the digestive system and abdomen; Z93.2 - Ileostomy status Category: Medical Plan: Increased output from ileostomy likely contributes to her acute kidney injury, encouraged patient to stay well-hydrated. (2) Hypomagnesemia: Code(s): E83.42 - Hypomagnesemia Category: Medical Plan: Latest magnesium levels at 1.4, continue magnesium oxide 800 mg twice a day will repeat another magnesium level in 3 days (3) Stress-induced cardiomyopathy: Code(s): I51.81 - Takotsubo syndrome Category: Medical Plan: Followed by cardiology, currently on metoprolol succinate ER 25 mg daily echocardiogram done 05/14/2025 showed an ejection fraction of 58%., scheduled follow-up office visit with Cardiology (4) Iron deficiency anemia: Code(s): D50.9 - Iron deficiency anemia, unspecified Category: Medical Qualifiers: Iron deficiency anemia type: inadequate dietary iron intake Qualified Code(s): D50.8 - Other iron deficiency anemias Plan: Advised to start taking rjsh-arw-vjfayjy ferrous sulfate tablets 325 mg once a day. (5) Chronic pancreatitis: Code(s): K86.1 - Other chronic pancreatitis Category: Medical Qualifiers: Pancreatitis type: unspecified pancreatitis type Qualified Code(s): K86.1 - Other chronic pancreatitis Plan: Will check a repeat lipase. Unable to afford Creon due to its high cost. Prescription was given for Dilaudid, 2 mg tablet, to take only for severe pain hesitate is habit forming, may cause further dizziness . Reminded to keep her follow-up appointment with GI on 07/04/2025 (6) Abnormal kidney function: Code(s): N28.9 - Disorder of kidney and ureter, unspecified Category: Medical Plan: Has an appointment with Dr. Mcclain on 06/24/2025, advised to stay adequately hydrated (7) Physical debility: Code(s): R53.81 - Other malaise Plan: Patient applying for be more STAFF TRAINING AND DEVELOPMENT MANAGER services and applying for long-term disability, has VNA in place (8) Generalized weakness: Code(s): R53.1 - Weakness Category: Medical Plan: Currently applying for STAFF TRAINING AND DEVELOPMENT MANAGER services, has bee in place, physical therapy to be started, (9) Paroxysmal atrial fibrillation: Code(s): I48.0 - Paroxysmal atrial fibrillation Category: Medical Plan: Continued on Eliquis and metoprolol will schedule follow-up office visit with Cardiology Orders: Orders Complete Blood Count Auto Diff 10/14/25 D50.9 - Iron deficiency anemia, unspecified, E83.42 - Hypomagnesemia, I51.81 - Takotsubo syndrome, K86.1 - Other chronic pancreatitis, Z93.2 - Ileostomy status Vitamin D 25-OH Total 06/17/25 D50.9 - Iron deficiency anemia, unspecified, E83.42 - Hypomagnesemia, I51.81 - Takotsubo syndrome, K86.1 - Other chronic pancreatitis, Z93.2 - Ileostomy status TSH reflex Free T4 06/17/25 D50.9 - Iron deficiency anemia, unspecified, E83.42 - Hypomagnesemia, I51.81 - Takotsubo syndrome, K86.1 - Other chronic pancreatit is, Z93.2 - Ileostomy status IRON PROFILE 06/17/25 D50.9 - Iron deficiency anemia, unspecified, E83.42 - Hypomagnesemia, I51.81 - Takotsubo syndrome, K86.1 - Other chronic pancreatitis, Z93.2 - Ileostomy status Ferritin 06/17/25 D50.9 - Iron deficiency anemia, unspecified, E83.42 - Hypomagnesemia, I51.81 - Takotsubo syndrome, K86.1 - Other chronic pancreatitis, Z93.2 - Ileostomy status Magnesium 06/17/25 D50.9 - Iron deficiency anemia, unspecified, E83.42 - Hypomagnesemia, I51.81 - Takotsubo syndrome, K86.1 - Other chronic pancreatitis, Z93.2 - Ileostomy status Vitamin B12 and Folate 06/17/25 D50.9 - Iron deficiency anemia, unspecified, E83.42 - Hypomagnesemia, I51.81 - Takotsubo syndrome, K86.1 - Other chronic pancreatitis, Z93.2 - Ileostomy status Vitamin B1 06/17/25 D50.9 - Iron deficiency anemia, unspecified, E83.42 - Hypomagnesemia, I51.81 - Takotsubo syndrome, K86.1 - Other chronic pancreatitis, Z93.2 - Ileostomy status Lipase 06/17/25 D50.9 - Iron deficiency anemia, unspecified, E83.42 - Hypomagnesemia, I51.81 - Takotsubo syndrome, K86.1 - Other chronic pancreatitis, Z93.2 - Ileostomy status Comprehensive Met. Panel 06/17/25 E83.42 - Hypomagnesemia, K86.1 - Other chronic pancreatitis, N28.9 - Disorder of kidney and ureter, unspecified, R19.8 - Other specified symptoms and signs involving the digestive system and abdomen, Z93.2 - Ileostomy status Referrals Cardiology Referral I25.10 - Atherosclerotic heart disease of [place] coronary artery without angina pectoris, I48.0 - Paroxysmal atrial fibrillation, I51.81 - Takotsubo syndrome Gastroenterology Referral E83.42 - Hypomagnesemia, K86.1 - Other chronic pancreatitis, R19.8 - Other specified symptoms and signs involving the digestive system and abdomen, Z93.2 - Ileostomy status Medications: New carisoprodol (Soma) 350 mg PO BEDTIME PRN 30 tabs 0RF muscle pain mirtazapine 15 mg PO BEDTIME 30 tabs 2RF thiamine HCl (vitamin B1) 50 mg (1/2 x 100 mg) PO DAILY 30 tabs 1RF metoprolol succinate ER 25 mg PO DAILY 30 tabs 3RF folic acid 1 mg PO DAILY 30 tabs 1RF Eliquis (apixaban) 5 mg PO BID 60 tabs 4RF NS hydromorphone (Dilaudid) 2 mg PO DAILY PRN 30 tabs 0RF pain Refilled magnesium oxide 800 mg (2 x 400 mg (241.3 mg magnesium)) PO BID 120 tabs 0RF 30 days E83.42 - Hypomagnesemia
[2025-06-16 16:13] VITALS: BP 90/60; PULSE 99; RESP 16; TEMP 36.4; O2SAT 97; BMI 18.7
== END 2025-06-16 17:00 | disposition home or self-care (01) ==
LOC: HO.HMCC 15:43
PROVIDERS: PCP Internal Medicine; Visit Provider Internal Medicine
DX: R19.8 Other specified symptoms and signs involving the digestive system and abdomen (principal); Z93.2 Ileostomy status; E83.42 Hypomagnesemia; I51.81 Takotsubo syndrome; D50.8 Other iron deficiency anemias; K86.1 Other chronic pancreatitis; N28.9 Disorder of kidney and ureter, unspecified; R53.81 Other malaise; R53.1 Weakness; I48.0 Paroxysmal atrial fibrillation

== ENCOUNTER → 2025-06-16 15:42 | Outpatient (BNVA) | payer MEDICARE, SELFPAY | PROVIDERS: PCP Internal Medicine; Visit Provider Internal Medicine | DX: R19.8 Other specified symptoms and signs involving the digestive system and abdomen (principal); E83.42 Hypomagnesemia; I51.81 Takotsubo syndrome; D50.8 Other iron deficiency anemias; K86.1 Other chronic pancreatitis; N28.9 Disorder of kidney and ureter, unspecified; R53.81 Other malaise; R53.1 Weakness; I48.0 Paroxysmal atrial fibrillation; Z79.01 Long term (current) use of anticoagulants; Z79.899 Other long term (current) drug therapy; Z93.2 Ileostomy status | CPT/HCPCS: 99212 ==

== ENCOUNTER 2025-06-17 14:49 | Outpatient (REF) | payer MEDICARE, SELFPAY ==
[2025-06-17 14:53] LABS: MANUAL DIFF FLAG NO
[2025-06-17 15:23] LABS: Hematocrit 30.0 % (37.0-47.0); Hemoglobin 9.7 g/dl (12.0-16.0); Imm Gran Abs Auto 0.04 X10*3/uL (0.00-0.03); Imm Gran Pct Auto 0.3 % (0.0-0.4); Lymphocytes Absolute Auto 2.0 X10*3/uL (1.2-4.9); Mean Corpuscular HGB Conc 32.3 g/dl (31.0-35.0); Mean Corpuscular Hemoglobin 29.6 pg (27.0-33.0); Mean Corpuscular Volume 91.5 fL (80.0-98.0); NRBC Abs Auto 0.000 X10*3/uL (0.0-0.012); NRBC Pct Auto 0.0 /100WBC (0.0-0.2); Platelet Count 357 X10*3/uL (160-400); Red Blood Count 3.28 X10*6/uL (4.20-5.50); White Blood Count 11.6 X10*3/uL (4.8-10.8)
[2025-06-17 16:12] LABS: Folate > 20.0 ng/mL (> or = 4.0); Vitamin B12 366 pg/mL (200-900)
[2025-06-17 17:26] LABS: Alanine Aminotransferase 24 U/L (0-31); Albumin Level 3.8 g/dL (3.5-5.0); Alkaline Phosphatase 246 U/L (39-117); Anion Gap 14 (12-20); Aspartate Amino Transferase 53 U/L (5-31); Blood Urea Nitrogen 78 mg/dL (9-16); Calcium 8.5 mg/dL (8.4-10.2); Carbon Dioxide 29 mmol/L (22-29); Chloride 95 mmol/L (96-108); Estimated Glomerular Filt Rate 30; Iron 43 mcg/dL (30-160); Magnesium 2.0 mg/dL (1.6-2.6); Percent Iron Saturation 15 % (15-50); Potassium 3.4 mmol/L (3.3-5.1); Sodium 135 mmol/L (135-145); Total Iron Binding Capacity 281 mcg/dL (228-428); Total Protein 7.7 g/dL (6.5-8.0); Unsaturated Iron Binding 238 ug/dL
[2025-06-17 17:29] LABS: Lipase 368 U/L (8-78)
--- OUTSIDE RECORDS SUMMARY | 2025-06-17 17:42 | XMS_ITS | Encounter Summary ---
Author Organization [facility] Address [address] [place] [address] Phone Care Team Providers Care [employer] Home Economics Teacher Name Role Phone Nessa Hillman NP Primary Care Provider [phone] Lupillo Sinclair MD Unavailable [phone] Encounter Details Date Type Department Care Team (Late st Contact Info) Description 01/31/2025 Procedure [place] [facility] [place] [address] [facility], [address]th [place] [address] Social History Tobacco Use Types Packs/Day Years [...] documented as of this encounter Care Teams [employer] Home [employer] Teacher Relationship Specialty Start Date End Date Nessa Hillman NP [address] [place] [address] PCP - General Nurse Practitioner 06/03/24 Lupillo Sinclair MD [address] [address] Cardiology 12/24/24 documented as of this encounter Additional Source Comments The information contained in this document represents components of the legal health record. It is not the complete legal health record.[facility]
--- OUTSIDE RECORDS SUMMARY | 2025-06-17 17:42 | XMS_ITS | Encounter Summary ---
Author Organization [facility] Address [address] [place] [address] Phone Care Team Providers Care Refund Clerk Name Role Phone Nessa Hillman NP Primary Care Provider [phone] Lupillo Sinclair MD Unavailable [phone] Encounter Details Date Type Department Care Team (Late st Contact Info) Description 01/26/2025 Procedure Pass [facility] [place] Imaging - RF/IR [address] [facility], [address] [place] [address] Social History Tobacco Use Types Packs/Day Years [...] 12:00 AM EDT Lulu Zhang RN * [place] Suicide Severity Rating Scale (Screener/Recent Self-Report) Question [...] documented as of this encounter Care Teams Refund Clerk Relationship Specialty Start Date End Date Nessa Hillman NP [address] [place] [address] PCP - General Nurse Practitioner 06/03/24 Lupillo Sinclair MD [address] [address] Cardiology 12/24/24 documented as of this encounter Additional Source Comments The information contained in this document represents components of the legal health record. It is not the complete legal health record.[facility]
--- OUTSIDE RECORDS SUMMARY | 2025-06-17 17:42 | XMS_ITS | Encounter Summary ---
Author Organization [facility] Address [address] [place] [address] Care Team Providers Care Filter Tender Name Role Phone Joi Rebollar MD Primary Care Provider [phone] Encounter Details Date Type Department Care Team ([facility] st Contact Info) Description 06/06/2025 Orders Only INPATIENT REHAB [address] [place] [id number] Astrid Marsh PA-C [address] [address] Intra-abdominal abscess (HCC) Social History Tobacco Use Types Packs/Day Years Used Date Smoking Tobacco: Former Cigarettes Smokeless Tobacco: Never Alcohol Use Standard Drinks/Week Comments Never 0 (1 standard drink = 0.6 oz pur e alcohol) [facility] Utilities Answer Date Recorded In the past 12 months has [place], gas, oil, or water [employer] threatened to shut off services in your [...] any time in the past 12 m [facility], were you homeless or living in a halfway (including now)? No 05/10/2025 Comments Unknown Sex [...] abscess documented in this encounter Care Teams Filter Tender Relationship Specialty Start Date End Date Joi Rebollar MD [address] [place] [address] PCP - General Internal Medicine 05/08/25 documented as of this encounter
--- OUTSIDE RECORDS SUMMARY | 2025-06-17 17:42 | XMS_ITS ---
Author Organization [facility] Care Team Providers Care Personal Property Assessor Name Role Phone Mayur, Pippa Mcelroy Unavailable Unavailable Unique Fritz Unavailable Unavailable Joanna Webster Unavailable Unavailable Luzmaria Ruiz Unavailable Unavailable Allergies and adverse reactions Code CodeSystem Substance Reaction Severity StartDate Concern Status 143001453 SNOMED CT Sulfa Antibiotics Unknown 05/05/2020 active Shell Fish Unknown 05/05/2020 active Iodinated radio contrast dye Unknown 05/05/2020 active 5640 RXNORM Ibuprofen Unknown 05/05/2020 active 4053 RXNORM Erythromycin Unknown 05/05/2020 active Augmentin Unknown 05/05/2020 active 1191 RXNORM Aspirin Unknown 05/05/2020 active Care Team Name Role Address Phone Organization Dates Pippa Merchant PCP [address] [place] [address], [facility] (Office): : [facility] 05/05/2020 - 05/07/2020 Unique Fritz [address] [place] [address], [facility] (Office): : [facility] 05/05/2020 - 05/07/2020 Joanna Webster [address] [place] [address], [facility] (Office): : [facility] 05/05/2020 - 05/07/2020 Luzmaria Ruiz [address] [place] [address], [address], [place] (Office): : [facility] 05/05/2020 - 05/07/2020 Goals [...] 1 PAIN IN RIGHT LOWER LEG 05/06/[address] active 2 ESSENTIAL (PRIMARY) HYPERTENSION 05/05/[address] active 3 GASTRO-ESOPHAGEAL REFLUX DISEASE WITHOUT ESOPHAGITIS 05/05/[address] active 4 HYPERLIPIDEMIA, UNSPECIFIED 05/05/[address] active 5 MUSCLE WEAKNESS (GENERALIZED) 05/05/[address] active 6 OTHER ABNORMALITIES OF GAIT AND MOBILITY 05/05/[address] active 7 OTHER SPECIFIED ARTHRITIS, MULTIPLE SITES 05/05/[address] active 8 PRIMARY OSTEOARTHRITIS, UNSPECIFIED SITE 05/05/[address] active 9 UNSTEADINESS ON FEET 05/05/[address] active 10 WEAKNESS 05/05/[address] active Reason for Referral No Reasons for Referral Entered Social History Social History Observation Description Start Date End Date Code Code System Current Smoking Status Tobacco smoking consumption unknown 927522755 SNOMED CT Sex Assigned At Female 1960 38415-4 [facility] Gender Identity Sexual Orientation Vital Signs Code Code System Vitals Name Values and Units Timing Information 9279-1 [facility] Respiratory Rate Value=16.0 Units=/m in 05/07/2020 8462-4 [facility] Blood Pressure-Diastolic Value=76 Un its=mmHg 05/07/2020 8480-6 [facility] Blood Pressure-Systolic Yfxgc=519 Un its=mmHg 05/07/2020 8310-5 [facility] Body Temperature Value=97.3 Units= F 05/07/2020 8867-4 [facility] Heart rate Value=60.0 Units=/min 11/2019 47096-7 [facility] O2 % BldC Oximetry Value=95.0 Units= % 05/07/2020 72732-7 [facility] Pain Level Value=0.0 05/07/2020
--- OUTSIDE RECORDS SUMMARY | 2025-06-17 17:42 | XMS_ITS | Encounter Summary ---
Author Organization [facility] Address [address] [place] [address] Phone Care Team Providers Care Food Service Counter Clerk Name Role Phone Nessa Hillman NP Primary Care Provider [phone]- [phone] Lupillo Sinclair MD Unavailable Encounter Details Date Type Department Care Team (Late st Contact Info) Description 01/26/2025 Procedure Pass [facility] Imaging - RF/IR [address] [facility], 2nd [place] [address] Social History Tobacco Use Types Packs/Day Years [...] 12:00 AM EDT Lulu Zhang RN * [place] Suicide Severity Rating Scale (Screener/Recent Self-Report) Question [...] documented as of this encounter Care Teams Food Service Counter Clerk Relationship Specialty Start Date End Date Nessa Hillman NP [address] [place] [address] PCP - General Nurse Practitioner 06/03/24 Lupillo Sinclair MD [address] [address] Cardiology 12/24/24 documented as of this encounter Additional Source Comments The information contained in this document represents components of the legal health record. It is not the complete legal health record.[facility]
--- OUTSIDE RECORDS SUMMARY | 2025-06-17 17:42 | XMS_ITS | Encounter Summary ---
Author Organization [facility] Address [address] [place] [address] Phone Care Team Providers Care Environmental Scientists Name Role Phone Nessa Hillman NP Primary Care Provider +1- [phone] Lupillo Sinclair MD Unavailable [phone] Encounter Details Date Type Department Care Team (Late st Contact Info) Description 01/31/2025 Procedure Pass [facility] [place] - RF/IR [address] [facility], 2nd [place] [address] Social History Tobacco Use Types Packs/Day Years [...] documented as of this encounter Care Teams Environmental Scientists Relationship Specialty Start Date End Date Nessa Hillman NP [address] [place] [address] PCP - General Nurse Practitioner 06/03/24 Lupillo Sinclair MD [address] [address] Cardiology 12/24/24 documented as of this encounter Additional Source Comments The information contained in this document represents components of the legal health record. It is not the complete legal health record.[facility]
--- OUTSIDE RECORDS SUMMARY | 2025-06-17 17:42 | XMS_ITS | Encounter Summary ---
Author Organization [facility] Address [address] [place] [address] Phone Care Team Providers Care Dredge Deckhand Name Role Phone Nessa Hillman NP Primary Care Provider +[phone]- [phone] Lupillo Sinclair MD Unavailable [phone] Encounter Details Date Type Department Care Team (Late st Contact Info) Description 01/07/2025 Procedure Pass [facility] PERIOPERATIVE DEPT [address] [place] [phone] Social History Tobacco Use Types Packs/Day Years [...] 1:00 PM EDT Shelbi Jimenez, RN * [place] Suicide Severity Rating Scale (Screener/Recent Self-Report) Question [...] documented as of this encounter Care Teams Dredge Deckhand Relationship Specialty Start Date End Date Nessa Hillman NP [address] [place] [address] PCP - General Nurse Practitioner 06/03/24 Lupillo Sinclair MD [address] [place] [address] Cardiology 12/24/24 documented as of this encounter Additional Source Comments The information contained in this document represents components of the legal health record. It is not the complete legal health record.[facility]
--- OUTSIDE RECORDS SUMMARY | 2025-06-17 17:42 | XMS_ITS | Clinical Summary ---
Author Organization [facility] Address [address] [place] [address] Phone Care Team Providers Care Powderer Name Role Phone Nessa Hillman NP Primary Care Provider +1- [phone] Lupillo Sinclair MD Unavailable [phone] Allergies Active Allergy Reactions Criticality Noted Date [...] She did have a cardiac catheterization at [facility] that took place in May 2023 [...] - 03/27/2025 11:59 PM EDT Hospital Encounter [facility] [address] [place] [address] Nicole Bragg MD Discharge Disposition: Home or Self Care 03/25/2025 8:37 AM EDT - 03/25/2025 11:59 PM EDT Hospital Encounter [facility] [address] [place] [address] Nicole Bragg MD Discharge Disposition: Home or Self Care 03/25/2025 Transcribe Orders [facility] Specimen Processing [address] [place] [address] Nicole Bragg MD Leukocytosis, unspecified type (Primary Dx) 03/24/2025 10:15 AM EDT - 03/24/2025 11:59 PM EDT Hospital Encounter [facility] Laboratory [address] [place] [address] Nicole Bragg MD Discharge Disposition: Home or Self Care 03/24/2025 Transcribe Orders [facility] Specimen Processing [address] [place] [address] Nicole Bragg MD Peritoneal abscess (Primary Dx) 03/21/2025 7:38 AM EDT - 03/21/2025 11:59 PM EDT Hospital Encounter [facility] Laboratory [address] [place] [address] Nicole Bragg MD Discharge Disposition: Home or Self Care 03/21/2025 Transcribe Orders [facility] Laboratory [address] [place] [address] Nicole Bragg MD Diarrhea, unspecified type (Primary Dx) 03/21/2025 Transcribe Orders [facility] Specimen Processing [address] [place] [address] Nicole Bragg MD Hypertension, unspecified type (Primary [...] included. SODIUM 133 133 - 146 mmol/L [facility] POTASSIUM 4.5 3.3 - 5.1 mmol/L [facility] CHLORIDE 95(L) 96 - 108 mmol/L [facility] CO2 21 21 - 35 mmol/L [facility] BUN 32(H) 6 - 19 mg/dL [facility] CREATININE 1.50 0.5 - 1.5 mg/dL [facility] GLUCOSE 102(H) 70 - 99 mg/dL [facility] ALBUMIN 3.6(L) 3.9 - 4.8 g/dL [facility] TOTAL PROTEIN 8.0 6.5 - 8.0 g/dL [facility] CALCIUM 8.8 8.4 - 10.3 mg/dL [facility] ALKALINE PHOSPHATASE 311(H) 39 - 117 U/L [facility] TOTAL BILIRUBIN 0.5 0.0 - 1.2 mg/dL [facility] AST 98(H) 0 - 37 U/L [facility] ALT 103(H) 0 - 40 U/L [facility] GLOBULIN 4.4 1 - 4.8 g/dL [facility] EGFR 38(L) >59 mL/min/1.7 3m2 [facility] Comment:Estimated glomerular filtration rate calculated using the CKD-EPI refit equation. ANION GAP 22(H) 10 - 20 mmol/L [facility] 03/27/2025 5:56 AM EDT 03/27/2025 7:24 AM EDT us Nicole Bragg MD LAB BLOOD ORDERABLES Final Res ult Performing Organization Address City/State/[facility] Co de Phone Number [address] [address] * (ABNORMAL) CBC and differential (03/27/2025 5:56 AM EDT) Only the most recent of2 resultswithin the time period is included. WBC 16.97(H) 4.00 - 11.00 K/uL [facility] RBC 4.26 4.00 - 5.20 M/uL [facility] HGB 12.2 12.0 - 16.0 g/dL [facility] HCT 38.0 36.0 - 46.0 % [facility] PLT 285 150 - 450 K/uL [facility] MCV 89.2 80.0 - 100.0 fL [facility] MCH 28.6 27.0 - 31.0 pg [facility] MCHC 32.1 32.0 - 36.0 g/dL [facility] RDW 14.8(H) 11.5 - 14.5 % [facility] MPV 10.9 8.4 - 12.0 fL [facility] NRBC 0.00 0.00 /100 WBCs [facility] ABSOLUTE NRBC 0.00 0.00 K/uL [facility] DIFF METHOD Auto [facility] NEUTS 71.7 48.0 - 76.0 % [facility] LYMPHS 16.8(L) 18.0 - 41.0 % [facility] MONOS 7.3 4.0 - 11.0 % [facility] EOS 2.7 0.0 - 5.0 % [facility] BASOS 0.8 0.0 - 1.5 % [facility] Granulocytes, immature (%) 0.7 0.0 - 0.9 % [facility] ABSOLUTE NEUTS 12.17(H) 1.92 - 7.60 K/uL [facility] ABSOLUTE LYMPHS 2.85 0.72 - 4.10 K/uL [facility] ABSOLUTE MONOS 1.24(H) 0.16 - 1.10 K/uL [facility] ABSOLUTE EOS 0.46 0.00 - 0.50 K/uL [facility] ABSOLUTE BASOS 0.13 0.00 - 0.15 K/uL [facility] Granulocytes, immature 0.12(H) 0.00 - 0.09 K/uL [facility] Blood 03/27/2025 5:56 AM EDT 03/27/2025 7:24 AM EDT us Nicole Bragg MD LAB BLOOD ORDERABLES Final Res ult Performing Organization Address City/[facility] Co de Phone Number [address] [address] * (ABNORMAL) Magnesium (03/27/2025 5:56 AM EDT) Only the most recent of2 resultswithin the time period is included. MAGNESIUM 1.3(L) 1.6 - 2.6 mg/dL [facility] 03/27/2025 5:56 AM EDT 03/27/2025 7:24 AM EDT us Nicole Bragg MD LAB BLOOD ORDERABLES Final Res ult Performing Organization Address City/[facility]/ZIP Co de Phone Number [address] [address] * (ABNORMAL) Lipase (03/27/2025 5:56 AM EDT) LIPASE 229(H) 16 - 63 U/L [facility] 03/27/2025 5:56 AM EDT 03/27/2025 7:24 AM EDT Nicole Bragg MD LAB BLOOD ORDERABLES Final Res ult [address] [address] * Amylase (03/27/2025 5:56 AM EDT) AMYLASE 97 28 - 100 U/L [facility] 03/27/2025 5:56 AM EDT 03/27/2025 7:24 AM EDT Nicole Bragg MD LAB BLOOD ORDERABLES Final Res ult Performing Organization Address [facility] Co de Phone Number [address] [address] * (ABNORMAL) CBC (03/24/2025 6:57 AM EDT) Only the most recent of2 resultswithin the time period is included. WBC 17.61(H) 4.00 - 11.00 K/uL [facility] RBC 4.19 4.00 - 5.20 M/uL [facility] HGB 12.2 12.0 - 16.0 g/dL [facility] HCT 38.5 36.0 - 46.0 % [facility] PLT 325 150 - 450 K/uL [facility] MCV 91.9 80.0 - 100.0 fL [facility] MCH 29.1 27.0 - 31.0 pg [facility] MCHC 31.7(L) 32.0 - 36.0 g/dL [facility] RDW 14.9(H) 11.5 - 14.5 % [facility] MPV 10.5 8.4 - 12.0 fL [facility] NRBC 0.00 0.00 /100 WBCs [facility] ABSOLUTE NRBC 0.00 0.00 K/uL [facility] 03/24/2025 6:57 AM EDT 03/24/2025 10:49 AM EDT us Nicole Bragg MD LAB BLOOD ORDERABLES Final Res ult Performing Organization Address [facility] Co de Phone Number [address] [address] * C. DIFFICILE PCR (03/21/2025 6:20 AM EDT) Pathologist [facility] C.DIFFICILE PCR Negative Negative [facility] C.DIFFICILE STRAIN PRESUMPTIVE NEGATIVE PRESUMPTIVE NEGATIVE [facility] Comment:Detection of 027/NAP 1/BI strains of C.difficile is presumptive and is solely for epidemiological purposes and is not intended to guide or monitor treatment of infections. Stool (Stool) 03/21/2025 6:2 0 AM EDT 03/21/2025 12:44 PM EDT us Nicole Bragg MD MICROBIOLOGY - GENERAL ORDERAB LES Final Result Performing Organization Address [facility] de Phone Number [address] [address] * (ABNORMAL) Iron and iron binding capacity (03/21/2025 6:05 AM EDT) IRON 68 30 - 160 ug/dL [facility] IRON BINDING CAPACITY 164(L) 228 - 428 ug/dL [facility] TRANSFERRIN SATURAT. 41 15 - 50 % [facility] Blood 03/21/2025 6:05 AM EDT 03/21/2025 7:53 AM EDT us Nicole Bragg MD LAB BLOOD ORDERABLES Final Res ult Performing Organization Address [facility] de Phone Number [address] [address] * Folate (03/21/2025 6:05 AM EDT) FOLIC ACID 14.5 4.2 - 19.9 ng/mL [facility] Blood 03/21/2025 6:05 AM EDT 03/21/2025 7:53 AM EDT Nicole Bragg MD LAB BLOOD ORDERABLES Final Res ult Performing Organization Address City/[facility]/ZIP Co de Phone Number [address] [address] * (ABNORMAL) Ferritin (03/21/2025 6:05 AM EDT) FERRITIN 384(H) 13 - 150 ug/L [facility] Blood 03/21/2025 6:05 AM EDT 03/21/2025 7:53 AM EDT Nicole Bragg MD LAB BLOOD ORDERABLES Final Res ult Performing Organization Address [facility] Co de Phone Number [address] [address] * ENDOSCOPY, SIGMOID (08/15/2024 9:33 AM EST) 08/15/2024 9:33 AM EST Narrative Transcriptions Kadeem Lehman MD - 08/15/2024 9:33 AM EST [facility] Gastrointestinal Endoscopy Unit Patient Name: Kia Phelps Exam Date: 08/15/2024 9:33 AM Date of : 1960 Admit Type: Outpatient Age: 64 Room: [place] [address] Gender: Female Note Status: Finalized Attending MD: [...] procedure. Anesthesia administered sedation. Kadeem Lehman MD, [id number] 08/15/2024 10:16:46 AM Number of Addenda: 0 Note Initiated On: 08/15/2024 9:33 AM Nessa Hillman DIRECTOR OF THE [facility]OPH[facility] GI PROCEDURE ORDERABLES Fi nal Result * [...] MEDICARE REPLACEMENT MEDICARE PART A & B Member Subscriber Plan / Payer (Ef fective 2024-Present) Name:[place] salgu[place]ine Member ID:[id number] Relation to Subscriber:Self Name:LeninGeorgeKia Subscriber ID:[id number] Payer ID:[id number] Group ID:Not on file Type:Medicare Address: [facility] [address] [place] [address] [employer] O MEDICARE REPLACEMENT MEDICARE PART A & B Member Subscriber Plan / Payer (Ef fective 2024-Present) Name:Kia Phelps Member ID:[id number] Relation to Subscriber:Self Name:Lenin Kia Subscriber ID:[id number] Payer ID:[id number] Group ID:Not on file Type:Medicare Address: [facility] [address] [place] [address] [employer] O MEDICARE REPLACEMENT MEDICARE PART A & B Member Subscriber Plan / Payer (Ef fective 2024-) Name:[place]George salgueroine Member ID:[id number] Relation to Subscriber:Self Name:LeninGeorgeKia Subscriber ID:[id number] Payer ID:[id number] Group ID:Not on file Type:Medicare Address: [facility] [address] [place] [address] [employer] PPO MEDICARE REPLACEMENT MEDICARE PART A & B Member Subscriber Plan / Payer ( fective 2024-) Name:Lenin Kia Member ID:[id number] Relation to Subscriber:Self Name:Kia Phelps Subscriber ID:[id number] Payer ID:[id number] Group ID:Not on file Type:Medicare Address: [facility] [address] [place] [address] Advance Directives For more information, please contact: [phone] (9AM - 5PM [facility], Monday-Monday) Documents on File Type Date Recorded Patient Collar Turner Operator Expl anation Healthcare Proxy 02/20/2025 4:01 PM * Full Code (Latest Code Status on File) Date Activated Date Inactivated Comments 01/07/2025 6:43 PM Question Answer Comments Code Status Confirmed With: Patient Care Teams Powderer Relationship Specialty Start Date End Date Nessa Hillman NP [address] [place] [address] PCP - General Nurse Practitioner 06/03/24 Lupillo Sinclair MD [address] [place] [address] [place]HAN [place]NEGAN [address] Cardiology 12/24/24 Additional Source Comments The information contained in this document represents components of the legal health record. It is not the complete legal health record.[facility]
--- OUTSIDE RECORDS SUMMARY | 2025-06-17 17:42 | XMS_ITS | Encounter Summary ---
Author Organization [facility] Address [address] [place] [address] Phone Care Team Providers Care Head Of Sales And Marketing Name Role Phone Nessa Hillman NP Primary Care Provider [phone]- [phone] Lupillo Sinclair MD Unavailable [phone] Encounter Details Date Type Department Care Team (Late st Contact Info) Description 01/26/2025 Procedure Pass [facility] [place] - RF/IR [address] [facility], 2nd [place] [address] Social History Tobacco Use Types Packs/Day Years [...] 12:00 AM EDT Lulu Zhang RN * [place] Suicide Severity Rating Scale (Screener/Recent Self-Report) Question [...] documented as of this encounter Care Teams Head Of Sales And Marketing Relationship Specialty Start Date End Date Nessa Hillman NP [address] [place] [address] PCP - General Nurse Practitioner 06/03/24 Lupillo Sinclair MD [address] [address] Cardiology 12/24/24 documented as of this encounter Additional Source Comments The information contained in this document represents components of the legal health record. It is not the complete legal health record.[facility]
--- OUTSIDE RECORDS SUMMARY | 2025-06-17 17:42 | XMS_ITS | Encounter Summary ---
Author Organization [facility] Address [address] [place] [address] Phone Care Team Providers Care Client Service Manager Name Role Phone Nessa Hillman NP Primary Care Provider +1- [phone] Lupillo Sinclair MD Unavailable [phone] Encounter Details Date Type Department Care Team (Late st Contact Info) Description 02/03/2025 Procedure Pass [facility] [address] [facility], [address]th [place] [address] Social History Tobacco Use Types Packs/Day Years [...] documented as of this encounter Care Teams Client Service Manager Relationship Specialty Start Date End Date Nessa Hillman NP [address] [place] [address] PCP - General Nurse Practitioner 06/03/24 Lupillo Sinclair MD [address] [address] Cardiology 12/24/24 documented as of this encounter Additional Source Comments The information contained in this document represents components of the legal health record. It is not the complete legal health record.[facility]
--- OUTSIDE RECORDS SUMMARY | 2025-06-17 17:42 | XMS_ITS | Encounter Summary ---
Author Organization [facility] Address [address] [place] [address] Phone Care Team Providers Care Acid Tester Name Role Phone Nessa Hillman NP Primary Care Provider [phone]- [phone] Lupillo Sinclair MD Unavailable [phone] Encounter Details Date Type Department Care Team (Late st Contact Info) Description 01/26/2025 Procedure Pass [facility], [place] [address] [facility], [address]th [place] [address] Social History Tobacco Use Types Packs/Day Years [...] 12:00 AM EDT Lulu Zhang RN * [place] Suicide Severity Rating Scale (Screener/Recent Self-Report) Question [...] documented as of this encounter Care Teams Acid Tester Relationship Specialty Start Date End Date Nessa Hillman NP [address] [place] [address] PCP - General Nurse Practitioner 06/03/24 Lupillo Sinclair MD [address] [address] Cardiology 12/24/24 documented as of this encounter Additional Source Comments The information contained in this document represents components of the legal health record. It is not the complete legal health record.[facility]
--- OUTSIDE RECORDS SUMMARY | 2025-06-17 17:42 | XMS_ITS | Encounter Summary ---
Author Organization [facility] Address [address] [place] [address] Phone Care Team Providers Care Bicycle Assembler Name Role Phone Nessa Hillman NP Primary Care Provider [phone]- [phone] Lupillo Sinclair MD Unavailable [phone] Encounter Details Date Type Department Care Team (Late st Contact Info) Description 01/25/2025 Procedure Pass [facility] [place] [address] [place] [address] Social History Tobacco Use Types Packs/Day Years [...] 12:00 AM EDT Lulu Zhang RN * [place] Suicide Severity Rating Scale (Screener/Recent Self-Report) Question Answer Date of Assessment Author 1. Wish to be (Past 1 Month) No 01/26/2025 12:00 AM EDT Lulu Zhang RN 2. Non-Specific Active Suicidal Thoughts (Past 1 Month) No 01/26/2025 12:00 AM EDT Lulu Zhang RN 6. 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 It is not the complete legal health record.[facility]
--- OUTSIDE RECORDS SUMMARY | 2025-06-17 17:42 | XMS_ITS | Encounter Summary ---
Author Organization [facility] Address [address] [place] [address] Phone Care Team Providers Care Job Placement Counselor Name Role Phone Nessa Hillman NP Primary Care Provider [phone]- [phone] Lupillo Sinclair MD Unavailable [phone] Encounter Details Date Type Department Care Team (Late st Contact Info) Description 02/04/2025 Procedure Pass [facility] Imaging - RF/IR [address] [facility], 2nd [place] [address] Social History Tobacco Use Types Packs/Day Years [...] documented as of this encounter Care Teams Job Placement Counselor Relationship Specialty Start Date End Date Nessa Hillman NP [address] [place] [address] PCP - General Nurse Practitioner 06/03/24 Lupillo Sinclair MD [address] [address] Cardiology 12/24/24 documented as of this encounter Additional Source Comments The information contained in this document represents components of the legal health record. It is not the complete legal health record.[facility]
--- OUTSIDE RECORDS SUMMARY | 2025-06-17 17:43 | XMS_ITS | Encounter Summary ---
Author Organization [facility] Address [address] [place] [address] Phone Care Team Providers Care Cloth Roll Winder Name Role Phone Nessa Hillman NP Primary Care Provider [phone]- [phone] Lupillo Sinclair MD Unavailable [phone] Encounter Details Date Type Department Care Team (Late st Contact Info) Description 06/12/[address] - [address], [address] [place] [id number] Social History Tobacco Use Types Packs/Day Years [...] documented as of this encounter Care Teams Cloth Roll Winder Relationship Specialty Start Date End Date Nessa Hillman NP [address] [place] [address] PCP - General Nurse Practitioner 06/03/24 Lupillo Sinclair MD [address] [place] [address] Cardiology 12/24/24 documented as of this encounter Additional Source Comments The information contained in this document represents components of the legal health record. It is not the complete legal health record.[facility]
--- OUTSIDE RECORDS SUMMARY | 2025-06-17 17:43 | XMS_ITS | Encounter Summary ---
Author Organization [facility] Address [address] [facility] [address] [place] [address] Phone Care Team Providers Care Arboreal Scientist Name Role Phone Deion Asencio MD Primary Care Provider + Nessa Hillman NP Primary Care Provider [phone]- [phone] Lupillo Sinclair MD Unavailable [phone] Encounter Details Date Type Department Care Team (Late st Contact Info) Description 08/03/2023 Procedure Pass Non-In[facility]iology [address] [place], [place] [id number] Social History Tobacco Use Types Packs/Day Years [...] documented as of this encounter Care Teams Arboreal Scientist Relationship Specialty Start Date End Date Deion Asencio MD [address] [place] [address] PCP - General Family Medicine 06/08/18 06/02/24 Nessa Hillman NP [address] [place] [address] PCP - General Nurse Practitioner 06/03/24 Lupillo Sinclair MD [address] [place] [address] Cardiology 12/24/24 documented as of this encounter Additional Source Comments The information contained in this document represents components of the legal health record. It is not the complete legal health record.[facility]
--- OUTSIDE RECORDS SUMMARY | 2025-06-17 17:43 | XMS_ITS | Encounter Summary ---
Author Organization [facility] Address [address] [place] [address] Phone Care Team Providers Care Business Intelligence Architect Name Role Phone Nessa Hillman NP Primary Care Provider [phone]- [phone] Lupillo Sinclair MD Unavailable [phone] Encounter Details Date Type Department Care Team (Late st Contact Info) Description 02/17/2025 Procedure Pass [facility] [address] [place] [address] Social History Tobacco Use Types Packs/Day Years [...] documented as of this encounter Care Teams Business Intelligence Architect Relationship Specialty Start Date End Date Nessa Hillman NP [address] [place] [address] PCP - General Nurse Practitioner 06/03/24 Lupillo Sinclair MD [address] [address] Cardiology 12/24/24 documented as of this encounter Additional Source Comments The information contained in this document represents components of the legal health record. It is not the complete legal health record.[facility]
--- OUTSIDE RECORDS SUMMARY | 2025-06-17 17:43 | XMS_ITS | Encounter Summary ---
Author Organization [facility] Address [address] [place] [address] Phone Care Team Providers Care Piece Work Inspector Name Role Phone Nessa Hillman NP Primary Care Provider [phone]- [phone] Lupillo Sinclair MD Unavailable [phone] Encounter Details Date Type Department Care Team (Late st Contact Info) Description 08/15/2024 Procedure Pass [facility] [place] [facility] [address] [place] [address] Social History Tobacco Use Types [...] documented as of this encounter Care Teams Piece Work Inspector Relationship Specialty Start Date End Date Nessa Hillman NP [address] [place] [address] PCP - General Nurse Practitioner 06/03/24 Lupillo Sinclair MD [address] [address] Cardiology 12/24/24 documented as of this encounter Additional Source Comments The information contained in this document represents components of the legal health record. It is not the complete legal health record.[facility]
--- OUTSIDE RECORDS SUMMARY | 2025-06-17 17:43 | XMS_ITS | Encounter Summary ---
Author Organization [facility] Address [address] [facility] [address] [place] [address] Phone Care Team Providers Care Clinical Trial Specialist Name Role Phone Deion Asencio MD Primary Care Provider + Nessa Hillman NP Primary Care Provider [phone]- [phone] Lupillo Sinclair MD Unavailable [phone] Encounter Details Date Type Department Care Team (Late st Contact Info) Description 07/26/2023 Procedure Pass [facility] [place] [place] [address] Social History Tobacco Use Types [...] documented as of this encounter Care Teams Clinical Trial Specialist Relationship Specialty Start Date End Date Deion Asencio MD [address] [place] [address] PCP - General Family Medicine 06/08/18 06/02/24 Nessa Hillman NP [address] [place] [address] PCP - General Nurse Practitioner 06/03/24 Lupillo Sinclair MD [address] [place] [address] Cardiology 12/24/24 documented as of this encounter Additional Source Comments The information contained in this document represents components of the legal health record. It is not the complete legal health record.[facility]
--- OUTSIDE RECORDS SUMMARY | 2025-06-17 17:43 | XMS_ITS | Encounter Summary ---
Author Organization [facility] Address [address] [place] [address] Phone Care Team Providers Care Chief Projectionist Name Role Phone Nessa Hillman NP Primary Care Provider [phone]- [phone] Lupillo Sinclair MD Unavailable [phone] Encounter Details Date Type Department Care Team ([facility] st Contact Info) Description 02/17/2025 Procedure Pass [facility] [place] [facility] [address] [facility], 5th Floor, [address] [place] [address] Social History Tobacco Use Types Packs/Day Years [...] documented as of this encounter Care Teams Chief Projectionist Relationship Specialty Start Date End Date Nessa Hillman NP [address] [place] [address] PCP - General Nurse Practitioner 06/03/24 Lupillo Sinclair MD [address] [address] Cardiology 12/24/24 documented as of this encounter Additional Source Comments The information contained in this document represents components of the legal health record. It is not the complete legal health record.[facility]
--- OUTSIDE RECORDS SUMMARY | 2025-06-17 17:43 | XMS_ITS | Clinical Summary ---
Author Organization [facility] Address [address] [place] [address] Care Team Providers Care Manager Family Name Role Phone Joi Rebollar MD Primary [...] mg/0.1 mL Liquid nasal spray deviceIndications :Anxiety [place] contents (4mg) into one nostril once. May [...] as there aren't plans to continue benzos lobsterman (per patient preference); options are limited given prolonged QTC Assessment & Plan (06/01/2025 2:22 PM EDT): - continue Valium 6mg PRN - since Remeron isn't effective for her, adjusted to scheduled Rozerem and dc'd Remeron - Home insomnia regimen: uses Soma for sleeping- which we will resume on discharge as there aren't plans to continue benzos lobsterman (per patient preference); options are limited given [...] O's, daily weight. She should follow-up with cra as outpatient, to restart Aldactone, amiodarone and [...] O's, daily weight. She should follow-up with cra as outpatient, to restart Aldactone, amiodarone and Farxiga Assessment & Plan (05/28/2025 11:42 AM EDT): CHADS2 score is 2 Last echocardiogram without significant change, normal right and left ventricular size and function, ejection fraction is 58% patient has been receiving IV fluids due to dehydration Will follow-up with cra as outpatient, to restart Aldactone, amiodarone and [...] -Continue atorvastatin 20 mg daily - outpatient cra will need to address: AC for afib, [...] -Continue atorvastatin 20 mg daily - outpatient cra will need to address: AC for afib, [...] O's, daily weight. She should follow-up with cra as outpatient, to restart Aldactone, amiodarone and [...] O's, daily weight. She should follow-up with cra as outpatient, to restart Aldactone, amiodarone and Farxiga Assessment & Plan (05/28/2025 11:42 AM EDT): CHADS2 score is 2 Last echocardiogram without significant change, normal right and left ventricular size and function, ejection fraction is 58% patient has been receiving IV fluids due to dehydration Will follow-up with cra as outpatient, to restart Aldactone, amiodarone and [...] -Continue atorvastatin 20 mg daily - outpatient cra will need to address: AC for afib, [...] -Continue atorvastatin 20 mg daily - outpatient cra will need to address: AC for afib, [...] 06/10 [facility] Assessment & Plan (05/29/2025 10:12 AM [...] 06/10 [facility] Assessment & Plan (05/28/2025 11:53 AM [...] with general surgery Dr. Walton on 06/10 [facility] Assessment & Plan (05/27/2025 8:45 AM [...] O's, daily weight. She should follow-up with cra as outpatient, to restart Aldactone, amiodarone and [...] O's, daily weight. She should follow-up with cra as outpatient, to restart Aldactone, amiodarone and Farxiga Assessment & Plan (05/28/2025 11:42 AM EDT): CHADS2 score is 2 Last echocardiogram without significant change, normal right and left ventricular size and function, ejection fraction is 58% patient has been receiving IV fluids due to dehydration Will follow-up with cra as outpatient, to restart Aldactone, amiodarone and [...] -Continue atorvastatin 20 mg daily - outpatient cra will need to address: AC for afib, [...] -Continue atorvastatin 20 mg daily - outpatient cra will need to address: AC for afib, [...] drainage. She presented on 04 07 at [facility] with concerns of draining from her fistula [...] drainage. She presented on 04 07 at [facility] with concerns of draining from her fistula [...] drainage. She presented on 04 07 at [facility] with concerns of draining from her fistula [...] drainage. She presented on 04 07 at [facility] with concerns of draining from her fistula [...] drainage. She presented on 04 07 at [facility] with concerns of draining from her fistula [...] and drainage. She presented on 8 at [facility] with concerns of draining from her fistula [...] treated with antibiotics. \Plan Continue antibiotics Continue caustic loader plan and follow with investigations. 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 who presented to [facility] on 04/27/2025 with increased drainage from fistula [...] multiple admission and draining who presented to [facility] on 04/27/2025 with increased drainage from fistula [...] multiple admission and draining who presented to [facility] on 04/27/2025 with increased drainage from fistula [...] multiple admission and draining who presented to [facility] on 04/27/2025 with increased drainage from fistula [...] 06/10 [facility] Assessment & Plan (05/29/2025 10:12 AM [...] 06/10 [facility] Assessment & Plan (05/28/2025 11:53 AM [...] with general surgery Dr. Walton on 06/10 [facility] Assessment & Plan (05/27/2025 8:45 AM [...] drainage. She presented on 04 07 at [facility] with concerns of draining from her fistula [...] drainage. She presented on 04 07 at [facility] with concerns of draining from her fistula [...] drainage. She presented on 04 07 at [facility] with concerns of draining from her fistula [...] drainage. She presented on 04 07 at [facility] with concerns of draining from her fistula [...] drainage. She presented on 04 07 at [facility] with concerns of draining from her fistula [...] drainage. She presented on 04 07 at [facility] with concerns of draining from her fistula [...] treated with antibiotics. \Plan Continue antibiotics Continue caustic loader plan and follow with investigations. 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 who presented to [facility] on 04/27/2025 with increased drainage from fistula [...] multiple admission and draining who presented to [facility] on 04/27/2025 with increased drainage from fistula [...] multiple admission and draining who presented to [facility] on 04/27/2025 with increased drainage from fistula [...] multiple admission and draining who presented to [facility] on 04/27/2025 with increased drainage from fistula [...] multiple admission and draining who presented to [facility] on 04/27/2025 with increased drainage from fistula [...] multiple admission and draining who presented to [facility] on 04/27/2025 with increased drainage from fistula [...] treated with antibiotics. \Plan Continue antibiotics Continue caustic loader plan and follow with investigations. 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 She should follow-up with cra as outpatient, to restart Aldactone, amiodarone and [...] O's, daily weight. She should follow-up with cra as outpatient, to restart Aldactone, amiodarone and Farxiga Assessment & Plan (05/28/2025 11:42 AM EDT): CHADS2 score is 2 Last echocardiogram without significant change, normal right and left ventricular size and function, ejection fraction is 58% patient has been receiving IV fluids due to dehydration Will follow-up with cra as outpatient, to restart Aldactone, amiodarone and [...] -Continue atorvastatin 20 mg daily - outpatient cra will need to address: AC for afib, [...] -Continue atorvastatin 20 mg daily - outpatient cra will need to address: AC for afib, [...] hold Jardiance to be restarted by outpatient cra. - Continue metoprolol 25 mg daily - Continue losartan 25 mg daily - Continue holding Jardiance and spironolactone Assessment & Plan (05/20/2025 12:03 PM EDT): Recent echo results from 05/14 reviewed by cardiology, with presumed stress cardiomyopathy. Ejection fraction improved to 58%. Recommending restarting metoprolol succinate and losartan. Advised to hold Jardiance to be restarted by outpatient cra. - Continue metoprolol 25 mg daily - Continue losartan 25 mg daily - Continue holding Jardiance and spironolactone Assessment & Plan (05/19/2025 6:40 AM EDT): Recent echo results from 05/14 reviewed by cardiology, with presumed stress cardiomyopathy. Ejection fraction improved to 58%. Recommending restarting metoprolol succinate and losartan. Advised to hold Jardiance to be restarted by outpatient cra. - Continue metoprolol 25 mg daily - Continue losartan 25 mg daily - Continue holding Jardiance and spironolactone Assessment & Plan (05/18/2025 6:47 AM EDT): Recent echo results from 05/14 reviewed by cardiology, with presumed stress cardiomyopathy. Ejection fraction improved to 58%. Recommending restarting metoprolol succinate and losartan. Advised to hold Jardiance to be restarted by outpatient cra. - Continue metoprolol 25 mg daily - Continue losartan 25 mg daily - Continue holding Jardiance and spironolactone Assessment & Plan (05/17/2025 2:37 PM EDT): Recent echo results from 05/14 reviewed by cardiology, with presumed stress cardiomyopathy. Ejection fraction improved to 58%. Recommending restarting metoprolol succinate and losartan. Advised to hold Jardiance to be restarted by outpatient cra. - Continue metoprolol 25 mg daily - Continue losartan 25 mg daily - Continue holding Jardiance and spironolactone Assessment & Plan (05/16/2025 7:39 AM EDT): Recent echo results from 05/14 reviewed by cardiology, with presumed stress cardiomyopathy. Ejection fraction improved to 58%. Recommending restarting metoprolol succinate and losartan. Advised to hold Jardiance to be restarted by outpatient cra. - Continue metoprolol 25 mg daily - Continue losartan 25 mg daily - Continue holding Jardiance and spironolactone Assessment & Plan (05/15/2025 2:08 PM EDT): Cardiology's recommendations were appreciated [05/14]. Recent echo results from 05/14 showed improved ejection fraction of 58%. Recommending restarting metoprolol succinate and losartan. Advised to hold Jardiance to be restarted by outpatient cra. Plan Recommends metoprolol Losartan 25 mg daily Continue hold on Jardiance and spironolactone Assessment & Plan (05/14/2025 4:48 PM EDT): Cardiology's recommendations were appreciated [05/14]. Recent echo results from 05/14 showed improved ejection fraction of 58%. Recommending restarting metoprolol succinate and losartan. Advised to hold Jardiance to be restarted by outpatient cra. 1. Discussed restarting metoprolol with attending 2. [...] Description 06/06/2025 Orders Only INPATIENT REHAB [address] [place] [address] Astrid Marsh PA-C Intra-abdominal abscess (HCC) 05/21/2025 4:07 PM EDT - 06/03/2025 11:37 AM EDT Hospital Encounter INPATIENT REHAB [address] [place] [address] Jhony Laird MD Starrett, Garrison [...] PM EDT Hospital Encounter [facility] [address] [place] [address] Hector, MD Moris Santana Anat, MD Vergara, Cunegundo, MD Castiglione, Andrew, MD McClure, Mitchell H, MD Anxiety (Primary Dx); Septic shock-resolved; Stress-induced cardiomyopathy; Nutritional deficiency; Pericarditis, unspecified chronicity, unspecified type; Intra-abdominal abscess (HCC); Allergic rhinitis, unspecified seasonality, unspecified trigger; Atrial fibrillation, unspecified type (HCC) Discharge Disposition: Inpatient Rehab Facility 05/08/2025 7:10 PM EDT Ancillary Procedure [facility] [address] [place] [address] Provider, File Room 05/08/2025 7:05 PM EDT Ancillary Procedure [facility] [address] [place] [id number] Provider, File Room 05/08/2025 7:00 PM EDT Ancillary Procedure [facility] [address] [place] [address] Provider, File Room 05/08/2025 7:00 PM EDT Ancillary Procedure [facility] [address] [place] [phone] Provider, File Room 05/06/[address] [facility] [address] [place] [address] Provider, File Room from Last 3 Months Social History Tobacco Use Types Packs/Day Years Used Date Smoking Tobacco: Former Cigarettes Smokeless Tobacco: Never Tobacco Cessation:Counseling Given: No Alcohol Use Standard Drinks/Week Comments Never 0 (1 standard drink = 0.6 oz pur e alcohol) [facility] Utilities Answer Date Recorded In the past 12 months has [employer], [employer], or water [employer] threatened to shut off services in your [...] any time in the past 12 [facility], were you homeless or living in a correction (including now)? No 05/10/2025 Comments Unknown Sex [...] 4.0 - 11.0 Thou/uL 06/03/2025 7:11 AM [facility] Platelet Count 251 150 - 450 Thou/uL 06/03/2025 7:11 AM [facility] Hemoglobin 7.5(L) 11.7 - 15.7 g/dL 06/03/2025 7:11 AM [facility] Hematocrit 23.5(L) 35.0 - 47.0 % 06/03/2025 7:11 AM [facility] Red Blood Cell Count 2.58(L) 4.00 - 5.40 Mil/uL 06/03/2025 7:11 AM [facility] MCV 91 80 - 100 fL 06/03/2025 7:11 AM [facility] MCH 29.1 27.0 - 31.0 pg 06/03/2025 7:11 AM [facility] MCHC 31.9 30.0 - 36.0 g/dL 06/03/2025 7:11 AM [facility] RDW 18.2(H) 11.5 - 14.5 % 06/03/2025 7:11 AM [facility] MPV 9.5 7.5 - 12.5 fL 06/03/2025 7:11 AM [facility] Blood Blood specimen / Unknown 06/03/2025 6:08 AM EDT 06/03/2025 6:51 AM EDT us Anika Lau PA-C LAB BLOOD ORDERABLES Final Re sult [address] [address], [address] [address] * (ABNORMAL) Magnesium (AM) (06/03/2025 6:08 AM EDT) Only the most recent of20 resultswithin the time period is included. Magnesium 1.5(L) 1.6 - 2.7 mg/dL 06/03/2025 7:34 AM EDT [facility] Blood Blood specimen / Unknown 06/03/2025 6:08 AM EDT 06/03/2025 6:51 AM EDT [facility] LAB BLOOD ORDERABLES Final Re sult Performing Organization Address [facility] [place] [address], [place] [address] * (ABNORMAL) Lipase (06/03/2025 6:08 AM EDT) Only the most recent of2 resultswithin the time period is included. Lipase 256(H) 13 - 60 U/L 06/03/2025 7:34 AM EDT [facility] Blood Blood specimen / Unknown 06/03/2025 6:08 AM EDT 06/03/2025 6:51 AM EDT [facility] LAB BLOOD ORDERABLES Final Re sult Performing Organization Address [facility] [place] [address], [place] [address] * (ABNORMAL) Comprehensive Metabolic Panel (06/03/2025 6:08 AM EDT) Only the most recent of7 resultswithin the time period is included. Glucose 92 65 - 99 mg/dL 06/03/2025 7:34 AM T [facility] Comment:Fasting: <100 mg/dL, Non-Fasting: <200 mg/dL (ADA 2005) Blood Urea Nitrogen (BUN) 9 8 - 21 mg/dL 06/03/2025 7:34 AM EDT [facility] Creatinine 0.52 0.40 - 1.10 mg/dL 06/03/2025 7:34 AM [facility] eGFR >90 >59 06/03/2025 7:34 AM [facility] Comment:CKD-EPI (2020) in mL /min/1.73 sq meters. Sodium 135(L) 136 - 145 mmol/L 06/03/2025 7:34 AM [facility] Potassium 3.9 3.4 - 5.3 mmol/L 06/03/2025 7:34 AM [facility] Chloride 104 98 - 107 mmol/L 06/03/2025 7:34 AM [facility] CO2 24 22 - 33 mmol/L 06/03/2025 7:34 AM [facility] Calcium 8.0(L) 8.7 - 10.5 mg/dL 06/03/2025 7:34 AM [facility] Alkaline Phosphatase 119 32 - 122 U/L 06/03/2025 7:34 AM [facility] Aspartate Aminotrans (AST) 21 10 - 50 U/L 06/03/2025 7:34 AM [facility] Alanine Aminotrans (ALT) 11 10 - 50 U/L 06/03/2025 7:34 AM [facility] Bilirubin, Total 0.3 0.2 - 1.0 mg/dL 06/03/2025 7:34 AM [facility] Protein, Total 5.2(L) 6.3 - 8.3 g/dL 06/03/2025 7:34 AM [facility] Albumin 2.5(L) 3.4 - 4.8 g/dL 06/03/2025 7:34 AM [facility] BUN/Creatinine Ratio 17 10.0 - 25.0 Ratio 06/03/2025 7:34 AM [facility] Globulin 2.7 1.5 - 3.9 g/dL 06/03/2025 7:34 AM [facility] Albumin/Globulin Ratio 0.9(L) 1.0 - 3.0 Ratio 06/03/2025 7:34 AM [facility] Anion Gap 7 7 - 17 06/03/2025 7:34 AM [facility] Blood Blood specimen / Unknown 06/03/2025 6:08 AM EDT 06/03/2025 6:51 AM EDT us Anika Lau PA-C LAB BLOOD ORDERABLES Final Re sult Performing Organization Address [facility] Co de Phone Number [facility] [address] [place] [address], [facility] [address] [place] [address] * ECG 12 lead (06/02/2025 10:24 AM EDT) Only the most recent of15 resultswithin the time period is included. Pathologist [facility] Ventricular rate 81 BPM EKG [facility] Atrial rate 81 BPM EKG [facility] P-R interval 170 ms EKG [facility] QRS duration 66 ms EKG [facility] Q-T interval 406 ms EKG [facility] QTC calculation (Bazett) 472 ms EKG [facility] P axis 51 degrees EKG [facility] R axis 16 degrees EKG [facility] T axis 41 degrees EKG [facility] 06/02/2025 10:2 4 AM EDT Narrative EKG [facility] - 06/02/2025 10:30 AM EDT Normal sinus rhythm Nonspecific T wave abnormality Abnormal ECG Confirmed by MD Pace John ([id number]) on 06/02/2025 10:30:22 AM Procedure Note Alvaro Pace MD - 06/02/2025 Normal sinus rhythm Nonspecific T wave abnormality Abnormal ECG Confirmed by MD Pace John ([id number]) on 06/02/2025 10:30:22 AM Jhony Laird MD ECG ORDERABLES Final Resu lt Performing Organization Address [facility]/ZIP Co de Phone Number [facility] * Lactic Acid, Plasma (STAT) (06/02/2025 7:45 AM EDT) Only the most recent of15 resultswithin the time period is included. Lactic Acid 0.8 0.5 - 1.9 mmol/L 06/02/2025 8:33 AM EDT [facility] Blood Blood specimen / Unknown 06/02/2025 7:45 AM EDT 06/02/2025 8:03 AM EDT Anika Lau PA-C LAB BLOOD ORDERABLES Final Re sult [address] [address], [address] [address] * (ABNORMAL) Complete Blood Count, with Differential (06/02/2025 5:18 AM EDT) Only the most recent of6 resultswithin the time period is included. White Blood Cell Count 10.6 4.0 - 11.0 Thou/uL 06/02/2025 5:59 AM [facility] Platelet Count 269 150 - 450 Thou/uL 06/02/2025 5:59 AM [facility] Hemoglobin 7.9(L) 11.7 - 15.7 g/dL 06/02/2025 5:59 AM [facility] Hematocrit 25.0(L) 35.0 - 47.0 % 06/02/2025 5:59 AM [facility] Red Blood Cell Count 2.79(L) 4.00 - 5.40 Mil/uL 06/02/2025 5:59 AM [facility] MCV 90 80 - 100 fL 06/02/2025 5:59 AM [facility] MCH 28.3 27.0 - 31.0 pg 06/02/2025 5:59 AM [facility] MCHC 31.6 30.0 - 36.0 g/dL 06/02/2025 5:59 AM [facility] RDW 18.0(H) 11.5 - 14.5 % 06/02/2025 5:59 AM [facility] MPV 9.3 7.5 - 12.5 fL 06/02/2025 5:59 AM [facility] Neutrophils Auto 75.6 % [facility] Immature Granulocytes 0.7 % 06/02/2025 5:59 AM [facility] Lymphocytes Auto 11.7 % 06/02/20 5:59 AM EDT [facility] Monocytes Auto 9.8 % 06/02/2025 5:59 AM EDT [facility] Eosinophils Auto 1.6 % 06/02/20 5:59 AM EDT [facility] Basophils Auto 0.6 % 06/02/2025 5:59 AM EDT [facility] Abs Neutrophils Auto 7.99(H) 2.00 - 7.50 Thou/uL 06/02/2025 5:59 AM EDT [facility] Abs Immature Granulocytes 0.07 0.00 - 0.10 Thou/uL 06/02/2025 5:59 AM EDT [facility] Abs Lymphocytes Auto 1.24(L) 1.50 - 4.50 Thou/uL 06/02/2025 5:59 AM EDT [facility] Abs Monocytes Auto 1.04 0.20 - 1.50 Thou/uL 06/02/2025 5:59 AM EDT [facility] Abs Eosinophils Auto 0.17 0.00 - 0.70 Thou/uL 06/02/2025 5:59 AM EDT [facility] Abs Basophils Auto 0.06 0.00 - 0.20 Thou/uL 06/02/2025 5:59 AM EDT [facility] Blood Blood specimen / Unknown 06/02/2025 5:18 AM EDT 06/02/2025 5:49 AM EDT Jhony Laird MD LAB BLOOD ORDERABLES Final Result [address] [address], [address] [address] * CT Abdomen+pelvis w/contrast (06/01/2025 2:25 PM [...] Fleischner guidelines were followed. Anika Lau PA-C [facility] CT ORDERABLES Final Resul t * (ABNORMAL) Basic Metabolic Panel (06/01/2025 5:30 AM EDT) Only the most recent of21 resultswithin the time period is included. Glucose 100(H) 65 - 99 mg/dL 06/01/2025 6:03 AM EDT [facility] Comment:Fasting: <100 mg/dL, Non-Fasting: <200 mg/dL (ADA 2004) Blood Urea Nitrogen (BUN) 31(H) 8 - 21 mg/dL 06/01/2025 6:03 AM EDT [facility] Creatinine 1.26(H) 0.40 - 1.10 mg/dL 06/01/2025 6:03 AM EDT [facility] eGFR 47(L) >59 06/01/2025 6:03 AM T [facility] Comment:CKD-EPI (2020) in mL /min/1.73 sq meters. Sodium 133(L) 136 - 145 mmol/L 06/01/2025 6:03 AM EDT [facility] Potassium 4.5 3.4 - 5.3 mmol/L 06/01/2025 6:03 AM EDT [facility] Chloride 103 98 - 107 mmol/L 06/01/2025 6:03 AM EDT [facility] CO2 20(L) 22 - 33 mmol/L 06/01/2025 6:03 AM T [facility] Anion Gap 10 7 - 17 06/01/2025 6:03 AM [facility] Calcium 8.7 8.7 - 10.5 mg/dL 06/01/2025 6:03 AM [facility] BUN/Creatinine Ratio 25 10.0 - 25.0 Ratio 06/01/2025 6:03 AM [facility] Blood Blood specimen / Unknown 06/01/2025 5:30 AM EDT 06/01/2025 5:35 AM EDT us Anika Lau PA-C LAB BLOOD ORDERABLES Final Re sult [address] [address], [address] [address] * XR Knee 3 views-Bilateral (05/28/2025 4:06 [...] in the right knee. Sydni Barakat MD [facility] DIAGNOSTIC IMAGING ORDER PAT Final Result * Phosphorus (AM) (05/27/2025 6:20 AM EDT) Only the most recent of10 resultswithin the time period is included. Phosphorus 2.8 2.7 - 4.5 mg/dL 05/27/2025 7:24 AM EDT [facility] Blood Blood specimen / Unknown 05/27/2025 6:20 AM EDT 05/27/2025 6:49 AM EDT Jessica Earl PA-C LAB BLOOD ORDERABLES Final Result Performing Organization Address [facility] Co de Phone Number [address] [address], [address] [address] * Sodium, Urine, Random (05/25/2025 2:52 PM EDT) Sodium, Urine Random <20 mmol/L 05/25/2025 3:28 PM EDT [facility] Comment:Reference range not established for random specimen. Urine Urine specimen / Unknown 05/25/2025 2:52 PM EDT 05/25/2025 3:10 PM EDT us Merva Ward DISPLAY CARD WRITER URINE ORDERABLES Final Result Performing Organization Address [facility] [place] [address], [place] [address] * Osmolality, Urine (05/25/2025 2:52 PM EDT) Osmolality, Urine 546 50 - 1,200 mOsm/Kg 05/25/2025 4:13 PM EDT [facility] Urine Urine specimen / Unknown 05/25/2025 2:52 PM EDT 05/25/2025 3:10 PM EDT us Merva Ward DISPLAY CARD WRITER URINE ORDERABLES Final Result Performing Organization Address [facility] [place] [address], [address] [address] * (ABNORMAL) Renal Function Panel (05/24/2025 5:13 AM EDT) Glucose 92 65 - 99 mg/dL 05/24/2025 7:38 AM EDT [facility] Comment:Fasting: <100 mg/dL, Non-Fasting: <200 mg/dL (ADA 2004) Blood Urea Nitrogen (BUN) 31(H) 8 - 21 mg/dL 05/24/2025 7:38 AM EDT [facility] Creatinine 1.05 0.40 - 1.10 mg/dL 05/24/2025 7:38 AM [facility] eGFR 59(L) >59 05/24/2025 7:38 AM [facility] Comment:CKD-EPI (2020) in mL /min/1.73 sq meters. Sodium 131(L) 136 - 145 mmol/L 05/24/2025 7:38 AM [facility] Potassium 4.4 3.4 - 5.3 mmol/L 05/24/2025 7:38 AM [facility] Chloride 98 98 - 107 mmol/L 05/24/2025 7:38 AM [facility] CO2 21(L) 22 - 33 mmol/L 05/24/2025 7:38 AM [facility] Calcium 8.6(L) 8.7 - 10.5 mg/dL 05/24/2025 7:38 AM [facility] Phosphorus 3.0 2.7 - 4.5 mg/dL 05/24/2025 7:38 AM [facility] Albumin 3.4 3.4 - 4.8 g/dL 05/24/2025 7:38 AM [facility] BUN/Creatinine Ratio 30(H) 10.0 - 25.0 Ratio 05/24/2025 7:38 AM [facility] Blood Blood specimen / Unknown 05/24/2025 5:13 AM EDT 05/24/2025 6:24 AM EDT us Sydni Barakat MD LAB BLOOD ORDERAB[place] [address], [place] [address] * (ABNORMAL) High Sensitivity D-Dimer (05/17/2025 5:09 AM EDT) Only the most recent of7 resultswithin the time period is included. High Sensitivity D-Dimer 344(H) <230 ng/mL DDU 05/17/2025 6:23 AM [facility] Comment: The threshold for exclusion of [...] BLOOD ORDERABLES Final Result Performing Organization Address [facility] [place] [address], [address] [address] * Partial Thromboplastin Time (PTT) (05/17/2025 5:09 AM EDT) Only the most recent of7 resultswithin the time period is included. Anticoagulant NO ANTI COAGULANT MEDS 05/17/2025 5:09 AM EDT [facility] Partial Thromboplastin Time (PTT) 28 25 - 36 seconds 05/17/2025 6:23 AM EDT [facility] Blood Blood specimen / Unknown 05/17/2025 5:09 AM EDT 05/17/2025 6:04 AM EDT us Malvin Boone MD LAB BLOOD ORDERABLES Final Result Performing Organization Address City/[facility]/[place] [address], [address] [address] * (ABNORMAL) PROTIME-INR (05/17/2025 5:09 AM EDT) Only the most recent of8 resultswithin the time period is included. Anticoagulant NO ANTI COAGULANT MEDS 05/17/2025 5:09 AM EDT [facility] Prothrombin Time (PT) 17.1(H) 10.0 - 13.5 seconds 05/17/2025 6:23 AM EDT [facility] INR 1.5 05/17/2025 6:23 AM EDT [facility] Comment:INR Therapeutic Rang es: Standard dose anticoagulant 2.0 to 3.0, High dose anticoagulant 2.5-3.5. Blood Blood specimen / Unknown 05/17/2025 5:09 AM EDT 05/17/2025 6:04 AM EDT us Malvin Boone MD LAB BLOOD ORDERABLES Final Result Performing Organization Address City/[facility]/[place] [address], [place] [address] * Fibrinogen Level (05/17/2025 5:09 AM EDT) Only the most recent of8 resultswithin the time period is included. Fibrinogen 179 148 - 435 mg/dL 05/17/2025 6:23 AM EDT [facility] Blood Blood specimen / Unknown 05/17/2025 5:09 AM EDT 05/17/2025 6:04 AM EDT us Malvin Boone MD LAB BLOOD ORDERABLES Final Result Performing Organization Address [facility] [place] [address], [address] [address] * Protein, Total (05/17/2025 5:09 AM EDT) Protein, Total 6.3 6.3 - 8.3 g/dL 05/17/2025 6:30 AM EDT [facility] Blood Blood specimen / Unknown 05/17/2025 5:09 AM EDT 05/17/2025 6:04 AM EDT us Malvin Boone MD LAB BLOOD ORDERABLES Final Result Performing Organization Address City/[facility]/[place] [address], [address] [address] * Lactate Dehydrogenase (LDH) (05/17/2025 5:09 AM EDT) Only the most recent of2 resultswithin the time period is included. Lactate Dehydrogenase (LDH) 137 120 - 260 U/L 05/17/2025 6:30 AM EDT [facility] Blood Blood specimen / Unknown 05/17/2025 5:09 AM EDT 05/17/2025 6:04 AM EDT us Malvin Boone MD LAB BLOOD ORDERABLES Final Result [address] [address], [address] [address] * THORACENTESIS (05/16/2025 3:58 PM EDT) Anatomical [...] to verify the correct patient, procedure, equipment, director of operations support and site/side marked as required. Procedure purpose: [...] Sample left with bedside RN. ACCESS: 6 Pakistani Yjbu-G-Dwlaqnsk closed needle/catheter system REQUESTING PRACTITIONER: KURT Mitchell [...] adjacent organs or vascular structures. A 6 Pakistani Uaht-Y-Qnlaauxz closed needle/catheter system was utilized for access. [...] No organisms seen 05/16/2025 7:33 PM EDT [facility] Culture No aerobes and anaerobes isolated after 7 days 05/23/2025 3:38 PM EDT [facility] Fluid, Pleural Specimen from pleura obtained by thoracentesis / Unknown 05/16/2025 3:35 PM EDT 05/16/2025 5:52 PM EDT Comment:Fluid, Pleural Malvin Boone MD MICROBIOLOGY - GENERAL ORD ERABLES Final Result [facility] [address] [place] [address], [place] [address] * Protein - Pleural Fluid (05/16/2025 3:35 PM EDT) Source Pleural Cavity, Left 05/16/2025 3:35 PM EDT [facility] Comment:Fluid, Pleural Protein, Body Fluid 2.3 g/dL 05/16/2025 5:40 PM EDT [facility] Comment:The reference interv al(s) and other method performance specifications are unavailable for this body fluid. Comparison of this result with the concentration in the blood, serum, or plasma is recommended. Fluid, Pleural Specimen from pleura obtained by thoracentesis / Unknown 05/16/2025 3:35 PM EDT 05/16/2025 4:33 PM EDT us Malvin Boone MD BODY FLUIDS AND STOOLS ORD ERABLES Final Result Performing Organization Address [facility] de Phone Number [address] [address], [address] [address] * LDH - Pleural Fluid (05/16/2025 3:35 PM EDT) Source Pleural Cavity, Left 05/16/2025 3:35 PM EDT [facility] Comment:Fluid, Pleural Lactate Dehydrogenase, Body Fluid 51 U/L 05/16/2025 5:40 PM EDT [facility] Comment:The reference interv al(s) and other method [...] Result Performing Organization Address [facility] de Phone Number [address] [address], [address] [address] * Glucose - Pleural Fluid (05/16/2025 3:35 PM EDT) Source Pleural Cavity, Left 05/16/2025 3:35 PM EDT [facility] Comment:Fluid, Pleural Glucose, Body Fluid 84 mg/dL 05/16/2025 5:40 PM EDT [facility] Comment:The reference interv al(s) and other method performance specifications are unavailable for this body fluid. Comparison of this result with the concentration in the blood, serum, or plasma is recommended. Fluid, Pleural Specimen from pleura obtained by thoracentesis / Unknown 05/16/2025 3:35 PM EDT 05/16/2025 4:33 PM EDT us Malvin Boone MD BODY FLUIDS AND STOOLS ORD ERABLES Final Result Performing Organization Address [facility]/ZIP Co de Phone Number [address] [address], [address] [address] * Cell Count, Reflex Differential, Body Fluid (05/16/2025 3:35 PM EDT) Appearance, Body Fluid Clear 05/16/2025 8:39 PM EDT [facility] Color Yellow 05/16/2025 8:39 PM EDT [facility] Nucleated Cells, Fluid 96 /CUMM 05/16/2025 5:41 PM T [facility] Comment:Macroscopic particle s present. Question accuracy of results. RBC, Fluid <2,000 /CUMM 05/16/2025 5:41 PM T [facility] Comment:Macroscopic particle s present. Question accuracy of results. Neutrophil, Body Fluid 4 % 05/16/2025 8:39 PM EDT [facility] Lymphoctye, Body Fluid 22 % 05/16/2025 8:39 PM EDT [facility] Monocyte, Body Fluid 38 % 05/16/2025 8:39 PM EDT [facility] Histiocyte, Body Fluid 28 % 05/16/2025 8:39 PM EDT [facility] Mesothelial, Body Fluid 8 % 05/16/2025 8:39 PM T [facility] Smear Comment, Body Fluid The reference interval and other method performance specifications are unavailable for this body fluid. Comparison of the result with concentration in the blood, serum, or plasma is recommended 05/16/2025 8:39 PM [facility] Fluid, Pleural Specimen from pleura obtained by thoracentesis / Unknown 05/16/2025 3:35 PM EDT 05/16/2025 4:33 PM EDT Malvin Boone MD BODY FLUIDS AND STOOLS ORD ERABLES Final Result [address] [address], [address] [address] * Thrombin Time (05/16/2025 10:00 AM EDT) Only the most recent of5 resultswithin the time period is included. Anticoagulant NO ANTI COAGULANT MEDS 05/16/2025 9:22 AM EDT [facility] Thrombin Time 18.1 12.7 - 19.2 seconds 05/16/2025 10:40 AM EDT [facility] Blood Blood specimen / Unknown 05/16/2025 10:00 AM EDT 05/16/2025 10:12 AM EDT us Calvin Lew MD LAB BLOOD [place]AB[place] [address], [address] [address] * EEG < 24 HR W/VIDEO -REDUCED SERVICE (05/15/2025 8:22 AM EDT) Narrative [facility] - 05/15/2025 8:23 AM EDT Laura Chaudhari MD 05/15/2025 1:22 PM ADULT INPATIENT CONTINUOUS VIDEO-EEG MONITORING (LTM) REPORT Facility: [facility] Patient and : Kia Phelps 1960 [...] care. MD Olivia Galicia MD ABPN Epilepsy. [facility] us Greg Sigala MD NEUROLOGY ORDERABLES Edited Res ult - Final Performing Organization Address City/[facility]/ZIP Co de Phone Number [address] [place] [address], * (ABNORMAL) C-REACTIVE PROTEIN (05/15/2025 5:48 AM EDT) C-Reactive Protein 2.18(H) 0 - 0.49 mg/dL 05/15/2025 10:45 AM EDT [facility] 05/15/2025 5:48 AM EDT 05/15/2025 6:27 AM EDT us Calvin Lew MD LAB BLOOD ORDERABLES Final Result [address] [address], [address] [address] * EEG 24 HOUR WITH VIDEO (05/15/2025 4:45 AM EDT) Narrative [facility] - 05/14/2025 5:24 PM EDT Laura Chaudhari MD 05/14/2025 5:25 PM ADULT INPATIENT CONTINUOUS VIDEO-EEG MONITORING (LTM) REPORT Facility: [facility] Patient and : Kia Phelps 1960 [...] care. MD Olivia Galicia MD ABPN Epilepsy. [facility] Greg Sigala MD NEUROLOGY ORDERABLES Final Resu lt [facility] [address] [id number], * Transfuse RBC's: (05/14/2025 2:19 PM EDT) [...] by 3D imaging, and 64% by 2D Luois biplane. Global longitudinal strain is -13.0%. No [...] Auto 64.9 % 05/14/20 11:34 AM EDT [facility] Immature Granulocytes 0.7 % 05/14/2025 11:34 AM EDT [facility] Lymphocytes Auto 20.3 % 05/14/20 11:34 AM EDT [facility] Monocytes Auto 9.9 % 05/14/2025 11:34 AM EDT [facility] Eosinophils Auto 3.4 % 05/14/20 11:34 AM EDT [facility] Basophils Auto 0.8 % 05/14/2025 11:34 AM EDT [facility] Abs Neutrophils Auto 4.73 2.00 - 7.50 Thou/uL 05/14/2025 11:34 AM EDT [facility] Abs Immature Granulocytes 0.05 0.00 - 0.10 Thou/uL 05/14/2025 11:34 AM EDT [facility] Abs Lymphocytes Auto 1.48(L) 1.50 - 4.50 Thou/uL 05/14/2025 11:34 AM EDT [facility] Abs Monocytes Auto 0.72 0.20 - 1.50 Thou/uL 05/14/2025 11:34 AM EDT [facility] Abs Eosinophils Auto 0.25 0.00 - 0.70 Thou/uL 05/14/2025 11:34 AM EDT [facility] Abs Basophils Auto 0.06 0.00 - 0.20 Thou/uL 05/14/2025 11:34 AM EDT [facility] Blood specimen / Unknown 05/14/2025 6:20 AM EDT 05/14/2025 6:28 AM EDT us Calvin Lew MD LAB BLOOD [place] [address], [place] [address] * Triglycerides (05/14/2025 6:20 AM EDT) Triglycerides 88 <150 mg/dL 05/14/2025 6:59 AM EDT [facility] Blood Blood specimen / Unknown 05/14/2025 6:20 AM EDT 05/14/2025 6:28 AM EDT us Calvin Lew MD LAB BLOOD [place]AB[place] [address], [place] [address] * (ABNORMAL) Ferritin (05/14/2025 6:20 AM EDT) Ferritin 657(H) 30 - 400 ug/L 05/14/2025 6:59 AM EDT [facility] Blood Blood specimen / Unknown 05/14/2025 6:20 AM EDT 05/14/2025 6:28 AM EDT Calvin Lew MD LAB BLOOD ORDERABLES Final Result Performing Organization Address [facility] de Phone Number [address] [address], [address] [address] * (ABNORMAL) POCT Glucose, Fingerstick (05/13/2025 8:06 PM EDT) Only the most recent of34 resultswithin the time period is included. POC Glucose 102(H) 65 - 99 mg/dL 05/13/2025 8:07 PM EDT Blood specimen / Unknown 05/13/2025 8:06 PM EDT 05/13/2025 8:07 PM EDT Max Young MD POINT OF CARE TEST ORDERABLES F inal Result Performing Organization Address City/[facility] Co de Phone Number HOSPITAL LAB See Below * EEG 24 HOUR WITH VIDEO (05/13/2025 7:08 PM EDT) Narrative [facility] - 05/13/2025 1:40 PM EDT Laura Chaudhari MD 05/13/2025 1:41 PM ADULT INPATIENT CONTINUOUS VIDEO-EEG MONITORING (LTM) REPORT Facility: [facility] Patient and : Kia Phelps 1960 [...] care. MD Olivia Galicia MD ABPN Epilepsy. [facility] us Greg Sigala MD NEUROLOGY ORDERABLES Final Resu lt [facility] [address] [id number], [place] * Transfuse Platelets:Transfusion Indications: Plt count less than or equal to 50K and Pre or Post surgery or invasive procedure (05/13/2025 2:36 PM EDT) Calvin Lew MD BLOOD TRANSFUSION ORDERABL ES Final Result * Type and Screen (05/13/2025 8:15 AM EDT) ABO/Rh O POSITIVE 05/13/2025 10:21 AM EDT [facility] Antibody Screen NEGATIVE 05/13/2025 10:21 AM [facility] Specimen Expiration 05/16/2025 05/13/2025 10:21 AM [facility] Blood Bank Comment Second Sample needed for Blood Transfusion 05/13/2025 10:21 AM T [facility] Unit Number [id number] 05/14/2025 7:07 AM [facility] Blood Component Type LEUKOREDUCED RED CELLS 05/14/2025 7:07 AM [facility] Unit Division 00 05/14/2025 7:07 AM [facility] Unit Status ISSUED,FINAL 05/15/2025 12:20 AM [facility] Transfusion Status OK TO TRANSFUSE 05/14/2025 7:07 AM [facility] Crossmatch Result Electronically Compatible 05/14/2025 7:07 AM [facility] Blood Blood specimen / Unknown 05/13/2025 8:15 AM EDT 05/13/2025 9:28 AM EDT Comment:Blood Calvin Lew MD BLOOD BANK TEST ORDERABLES Final Result HOSPITAL LAB See Below [address] [address] * Prepare Platelets:Prepare in: Doses; Number of doses: 1; Transfusion Indications: Plt count less than or equal to 50K and Pre or Post surgery or invasive procedure (05/13/2025 7:32 AM EDT) Units Ordered 1 05/13/2025 7:32 AM EDT Unit Number [id number] 05/13/2025 12:03 PM EDT [facility] Blood Component Type Apheresis Platelets (7d) Irradiated Leukocytes Reduced - 1st container 05/13/2025 12:03 PM EDT [facility] Unit Division 00 05/13/2025 12:03 PM EDT [facility] Unit Status ISSUED,FINAL 05/14/2025 12:20 AM EDT [facility] Transfusion Status OK TO TRANSFUSE 05/13/2025 12:03 PM EDT [facility] 05/13/2025 7:32 AM EDT 05/13/2025 12:03 PM EDT us Calvin Lew MD BLOOD BANK PRODUCT ORDERAB LES Final Result HOSPITAL LAB See Below [facility] [address] [place] [address] * EEG 24 HOUR WITH VIDEO (05/13/2025 6:31 AM EDT) Narrative [facility] - 05/12/2025 1:41 PM EDT Laura Chaudhari MD 05/12/2025 1:45 PM ADULT INPATIENT CONTINUOUS VIDEO-EEG MONITORING (LTM) REPORT Facility: [facility] Patient and : Kia Phelps 1960 [...] care. MD Olivia Galicia MD ABPN Epilepsy. [facility] Greg Sigala MD NEUROLOGY ORDERABLES Final Resu lt Performing Organization Address City/[facility]/ZIP Co de Phone Number [facility] [address] [place] [address], * ABO Confirmation (05/13/2025 4:49 AM EDT) ABO/Rh O POSITIVE 05/13/2025 12:01 PM EDT [facility] Blood specimen / Unknown 05/13/2025 4:49 AM EDT 05/13/2025 10:48 AM EDT Max Young MD BLOOD BANK TEST ORDERABLES Queenie l Result Performing Organization Address [facility]/ZIP Co de Phone Number [address] [address], [address] [address] * (ABNORMAL) HEPATIC FUNCTION PANEL (05/13/2025 4:49 AM EDT) Only the most recent of2 resultswithin the time period is included. Alkaline Phosphatase 197(H) 32 - 122 U/L 05/13/2025 7:44 AM EDT [facility] Aspartate Aminotrans (AST) 38 10 - 50 U/L 05/13/2025 7:44 AM EDT [facility] Alanine Aminotrans (ALT) 7(L) 10 - 50 U/L 05/13/2025 7:44 AM [facility] Bilirubin, Total 0.6 0.2 - 1.0 mg/dL 05/13/2025 7:44 AM EDT [facility] Protein, Total 5.4(L) 6.3 - 8.3 g/dL 05/13/2025 7:44 AM [facility] Albumin 3.0(L) 3.4 - 4.8 g/dL 05/13/2025 7:44 AM [facility] Bilirubin, Direct 0.4(H) 0 - 0.2 mg/dL 05/13/2025 7:44 AM [facility] Globulin 2.4 1.5 - 3.9 g/dL 05/13/2025 7:44 AM [facility] Albumin/Globulin Ratio 1.3 1.0 - 3.0 Ratio 05/13/2025 7:44 AM [facility] 05/13/2025 4:49 AM EDT 05/13/2025 5:52 AM EDT Calvin Lew MD LAB BLOOD ORDERABLES Final Result [address] [address], [address] [address] * MRI Brain w w/o contrast (05/12/2025 [...] INPATIENT CONTINUOUS VIDEO-EEG MONITORING (LTM) REPORT Facility: [facility] Patient and : Kia Phelps 1960 Date of Procedure: 05/11/2025 Admission Attending: Mxa Young MD Recording begun at 00:02 hrs [...] care. MD Olivia Galicia MD ABPN Epilepsy. [facility] [place] us Greg Sigala MD NEUROLOGY ORDERABLES Final Resu lt [facility] [address] [place] [address], [place] * XR Abdomen 1 view (05/11/2025 [...] INPATIENT CONTINUOUS VIDEO-EEG MONITORING (LTM) REPORT Facility: [facility] Patient and : Kia Phelps 1960 [...] care. MD Olivia Galicia MD ABPN Epilepsy. [facility] Greg Sigala MD NEUROLOGY ORDERABLES Final Resu lt Performing Organization Address City/[facility]/ZIP Co de Phone [place] [address], * (ABNORMAL) Transferrin (05/10/2025 8:10 PM EDT) Transferrin 57(L) 200 - 360 mg/dL 05/10/2025 8:41 PM EDT [facility] Blood Blood specimen / Unknown 05/10/2025 8:10 PM EDT 05/10/2025 8:14 PM EDT Jaclyn Hunter MD LAB BLOOD ORDERABLES Final Result Performing Organization Address [facility] [place] [address], [place] [address] * FEEDING TUBE PLACEMENT (NASODUODENAL/NASOJEJUNAL) (05/10/2025 1:17 [...] to verify the correct patient, procedure, equipment, director of operations support and site/side marked as required. Preparation: Patient [...] considered as clinically warranted. Priscilla Subramanian MD [facility] US ORDERABLES Final Result * Pathology Smear Review, Whole Blood (05/10/2025 6:20 AM EDT) Pathology Comment Smear review: 05/11/2025 1:30 AM EDT [facility] Comment: Anemia and thrombocytopenia--smear not diagnostic of etiology. Buena cells: consider electrolyte imbalance vs artifact. Junior Dominguez MD ([facility]) Blood specimen / Unknown 05/10/2025 6:20 AM EDT 05/10/2025 6:25 AM EDT Priscilla Subramanian MD PATHOLOGY/CYTOLOGY ORDERABLES Fi nal Result [address] [address], [address] [address] * EEG 24 HOUR WITH VIDEO (05/10/2025 3:58 AM EDT) Narrative [facility] - 05/09/2025 5:20 AM EDT Olivia Berman MD 05/09/2025 3:23 PM ADULT INPATIENT CONTINUOUS VIDEO-EEG MONITORING (LTM) REPORT Facility: [facility] Patient and : Kia Phelps 1960 [...] patient care. Olivia Berman MD ABPN Epilepsy. [facility] [place] us Greg Sigala MD NEUROLOGY ORDERABLES Edited Res ult - Final [facility] [id number] [id number], [place] * (ABNORMAL) Prealbumin (05/09/2025 5:45 PM EDT) Prealbumin 6(L) 20 - 40 mg/dL 05/09/2025 7:10 PM EDT [facility] Blood Blood specimen / Unknown 05/09/2025 5:45 PM EDT 05/09/2025 6:07 PM EDT us Priscilla Subramanian MD LAB BLOOD ORDERABLES Final Resul t Performing Organization Address City/[facility]/ZIP Co de Phone Number [address] [address], [address] [address] * (ABNORMAL) Folate Level (05/09/2025 5:45 PM EDT) Folate, Serum 4.6(L) >7.2 ng/mL 05/09/2025 7:24 PM EDT [facility] Blood Blood specimen / Unknown 05/09/2025 5:45 PM EDT 05/09/2025 6:07 PM EDT us Priscilla Subramanian MD LAB BLOOD ORDERABLES Final Resul t Performing Organization Address [facility]/ZIP Co de Phone Number [address] [address], [address] [address] * Vitamin B12 (05/09/2025 5:45 PM EDT) Vitamin B12 772 243 - 894 pg/mL 05/09/2025 7:10 PM EDT [facility] Blood Blood specimen / Unknown 05/09/2025 5:45 PM EDT 05/09/2025 6:07 PM EDT us Priscilla Subramanian MD LAB BLOOD ORDERABLES Final Resul t Performing Organization Address City/[facility]/ZIP Co de Phone Number [address] [address], [address] [place] [address] * Blood Culture (05/09/2025 10:23 AM EDT) Only the most recent of2 resultswithin the time period is included. Culture Sterile after 5 days 05/14/2025 3:10 PM EDT [facility] Blood Blood specimen / Unknown 05/09/2025 10:23 AM EDT 05/09/2025 11:30 AM EDT Comment:Blood us Priscilla Moris GIANG LAB BLOOD ORDERABLES Final Resul t [facility] [address] [place] [address], * Procalcitonin (05/09/2025 10:20 AM EDT) Procalcitonin 0.28 <0.51 ng/mL 05/09/2025 11:37 AM EDT [facility] Comment: New Reference Range for Procalcitonin (NOTE) [...] ORDERABLES Final Resu lt Performing Organization Address [facility] Co de Phone Number [address] [address], [address] [address] * Nasal MRSA Screen, PCR (05/09/2025 10:20 AM EDT) MRSA Result Not Detected Not Detected 5:21 PM EDT [facility] Comment:Performed by the Xpe rt MRSA NxG Assay Swab, Anterior Nares Specimen from nose / Unknown 05/09/2025 10:20 AM EDT 05/09/2025 12:38 PM EDT Dieter Molina MD MICROBIOLOGY - GENERAL ORDERABL ES Final Result Performing Organization Address [facility] [place] [address], [address] [address] * Heparin PF4 Ab Screen Reflex Serotonin Release Assay (05/09/2025 9:10 AM EDT) Heparin PF4 Antibody Negative Negative 05/09/2025 11:20 AM EDT [facility] Comment:Negative Screen, ref destinee testing not indicated. Blood Blood specimen / Unknown 05/09/2025 9:10 AM EDT 05/09/2025 9:34 AM EDT Priscilla Subramanian MD LAB BLOOD ORDERABLES Final Resul t Performing Organization Address [facility] Co de Phone Number [address] [address], [address] [address] * Haptoglobin (05/09/2025 9:10 AM EDT) Haptoglobin 65 30 - 200 mg/dL 05/09/2025 10:09 AM EDT [facility] Blood Blood specimen / Unknown 05/09/2025 9:10 AM EDT 05/09/2025 9:34 AM EDT Priscilla Subramanian MD LAB BLOOD ORDERABLES Final Resul t Performing Organization Address [facility] Co de Phone Number [address] [address], [address] [address] * (ABNORMAL) proBNP, N-terminal (05/09/2025 3:00 AM EDT) proBNP, N-terminal 41,316(H) <125 pg/mL 05/09/2025 4:11 AM EDT [facility] Blood Blood specimen / Unknown 05/09/2025 3:00 AM EDT 05/09/2025 3:35 AM EDT Max Young MD LAB BLOOD ORDERABLES Final Resu lt Performing Organization Address [facility] Co de Phone Number [address] [address], [address] [address] * CTA Chest for P.E. (05/09/2025 2:26 [...] renal calculi. Interpreted by: Evin Elise MD [place] I personally reviewed the images and the resident's preliminary report and made the MINOR addendum above (RADPAL2). Narrative 05/09/2025 9:47 AM EDT EXAMINATION: CTA OF THE CHEST, ABDOMEN, AND PELVIS WITH AND WITHOUT CONTRAST CLINICAL INFORMATION: 65 years old Female with tachycardia, lactic acidosis COMPARISON: CT abdomen and pelvis 04/23/2025 CT chest 08/18/2016 DESCRIPTION: Initial noncontrast localizing sewer separation designer images were obtained. Timing boluses at the [...] CT chest 08/18/2016 DESCRIPTION: Initial noncontrast localizing sewer separation designer images were obtained. Timing boluses at the [...] renal calculi. Interpreted by: Evin Elise MD [place] I personally reviewed the images and the resident's preliminary report and made the MINOR addendum above (RADPAL2). Max Young MD [facility] CT ORDERABLES Final Result * CTA Abdomen+pelvis [...] renal calculi. Interpreted by: Evin Elise MD [place] I personally reviewed the images and the resident's preliminary report and made the MINOR addendum above (RADPAL2). Narrative 05/09/2025 9:47 AM EDT EXAMINATION: CTA OF THE CHEST, ABDOMEN, AND PELVIS WITH AND WITHOUT CONTRAST CLINICAL INFORMATION: 65 years old Female with tachycardia, lactic acidosis COMPARISON: CT abdomen and pelvis 04/23/2025 CT chest 08/18/2016 DESCRIPTION: Initial noncontrast localizing sewer separation designer images were obtained. Timing boluses at the [...] CT chest 08/18/2016 DESCRIPTION: Initial noncontrast localizing sewer separation designer images were obtained. Timing boluses at the [...] renal calculi. Interpreted by: Evin Elise MD [place] I personally reviewed the images and the resident's preliminary report and made the MINOR addendum above (RADPAL2). Max Young MD IMG CT ORDERABLES Final Result * Prolactin (05/08/2025 11:57 PM EDT) Prolactin 7.6 4.8 - 23.3 ng/mL 05/09/2025 12:38 AM EDT [facility] Blood Blood specimen / Unknown 05/08/2025 11:57 PM EDT 05/09/2025 12:03 AM EDT Max Young MD LAB BLOOD ORDERABLES Final Resu lt [address] [address], [address] [address] * (ABNORMAL) Blood Gas, Venous (05/08/2025 11:57 PM EDT) Venous Blood PH 7.34 7.33 - 7.43 05/09/2025 12:20 AM EDT [facility] Venous pCO2 30(L) 35 - 50 mmHG 05/09/2025 12:20 AM EDT [facility] Venous pO2 95(H) 0 - 60 mmHG 05/09/2025 12:20 AM EDT [facility] Venous Total CO2 17(L) 23 - 29 mmol/L 05/09/2025 12:20 AM EDT [facility] Respiratory Info ROOM AIR 05/08/20 25 10:32 PM EDT [facility] Base Deficiency 8.6 mmol/L 12:20 AM EDT [facility] Comment:Reference Range: Neg ative 2 to Positive 3 Blood Blood specimen / Unknown 05/08/2025 11:57 PM EDT 05/09/2025 12:02 AM EDT Max Young MD LAB BLOOD ORDERABLES Final Resu lt Performing Organization Address [facility] Co de Phone Number [address] [address], [address] [address] * CT Head Archive for Reference Only (05/08/2025 6:58 PM EDT) Only the most recent of3 resultswithin the time period is included. Narrative [facility] 05/08/2025 6:58 PM EDT This study has been auto finalized and does not contain a result. us File Room Provider IMG DIGITIZE FILMS Final Resu lt Performing Organization Address [facility] de Phone Number NITIN [phone] * MR Head Archive for Reference Only (05/08/2025 6:57 PM EDT) Narrative [facility] - 05/08/2025 6:57 PM EDT This study has been auto finalized and does not contain a result. us File Room Provider IMG DIGITIZE FILMS Final Resu lt Performing Organization Address [facility] Co de Phone Number NITIN [phone] from Last 3 Months Insurance [employer] MGD MEDICARE Advance Directives * Full Code (Latest Code Status on File) Date Activated Date Inactivated Comments 05/21/2025 11:21 AM * Full Code Date Activated Date Inactivated Comments 05/08/2025 10:02 PM 05/21/2025 11:21 AM Healthcare Agents on File Name Relationship Healthcare Agent Relationshi p Communication Geovanna Vasquez Adult child 1. Health Care Represe ntative Care Teams Manager Family Relationship Specialty Start Date End Date Joi Rebollar MD [address] [place] [address] PCP - General Internal Medicine 05/08/25
[2025-06-17 17:44] LABS: Ferritin 518 ng/mL (10-250)
== END 2025-06-17 14:50 | disposition home or self-care (01) ==
LOC: HO.HVNA 14:49
PROVIDERS: Visit Provider Internal Medicine
DX: I51.81 Takotsubo syndrome (principal); E83.42 Hypomagnesemia; D50.9 Iron deficiency anemia, unspecified; K86.1 Other chronic pancreatitis; R19.8 Other specified symptoms and signs involving the digestive system and abdomen; N28.9 Disorder of kidney and ureter, unspecified; I10 Essential (primary) hypertension; Z93.2 Ileostomy status
CPT/HCPCS: 36415; 80053; 82306; 82607; 82728; 82746; 83540; 83690; 83735; 84425; 84443; 85025

== ENCOUNTER 2025-06-26 10:20 | Outpatient (AMB) | payer MEDICARE, SELFPAY ==
[2025-06-26 10:22] VITALS: BP 109/74; PULSE 98; BMI 18.7
--- NOTE | 2025-06-26 10:22 | MHC.OFFVIS ---
Vital Signs 06/26/25 10:22 Height 5 ft 2 in Weight 101 lb 15.985 oz BMI 18.7 BP 109/74 Blood Pressure Location Rt brachial Position Sitting Pulse 98 Intake Visit Reasons: post hospitalization/ t-tube Intake Note: This patient presents for a follow-up for t-tube. Pt c/o: drain feel out but the string is still inside . Electric Motor Rebuilder Required: No Accompanied by: Family/Other Allergies clams Allergy (Severe, Verified 06/26/25 10:32) Stomach Upset clavulanic acid (Augmentin) Allergy (Unknown, Verified 06/26/25 10:32) GI, Difficulty breathing codeine (CODEINE) Allergy (Unknown, Verified 06/26/25 10:32) SENSITIVITY erythromycin base (Erythromycin Base) Allergy (Unknown, Verified 06/26/25 10:32) GI, DIFF BREATHING Sulfa (Sulfonamide Antibiotics) Allergy (Unknown, Verified 06/26/25 10:32) RASH morphine (MORPHINE) Adverse Reaction (Severe, Verified 06/26/25 10:32) Difficulty Breathing aspirin (Aspirin) Adverse Reaction (Mild, Verified 06/26/25 10:32) STOMACH UPSET melatonin Adverse Reaction (Verified 06/26/25 10:32) Vomiting Medication List - Last Reconciled 06/26/25 by Gideon Ruvalcaba MD acetaminophen 650 mg PO Q4H PRN atorvastatin 20 mg PO DAILY benzonatate 100 mg PO BID PRN calcium carb, citrate-vit D3 600 mg-12.5 mcg (500 unit) ER (Citracal-D3 Slow Release) 1 tab PO DAILY carisoprodol (Soma) 350 mg PO BEDTIME PRN Eliquis (apixaban) 5 mg PO BID NS fluticasone propionate 50 mcg/actuation 1 spray intranasal DAILY folic acid 1 mg PO DAILY hydromorphone (Dilaudid) 2 mg PO DAILY PRN magnesium oxide 800 mg (2 x 400 mg (241.3 mg magnesium)) PO BID 30 days metoprolol succinate ER 25 mg PO DAILY mirtazapine 15 mg PO BEDTIME multivitamin with minerals 1 tab PO BEDTIME ondansetron 4 mg PO DAILY PRN pantoprazole 40 mg PO DAILY ramelteon 8 mg PO BEDTIME PRN thiamine HCl (vitamin B1) 50 mg (1/2 x 100 mg) PO DAILY HPI HPI post hospitalization/ t-tube: Details: She is here for follow-up because she says her cholecystostomy tube fell out. This was placed last March, because of the question of cholecystitis. She says that there is a still a stitch left on the skin She had been in [facility] for a long time because of status epilepticus. She also was aphasic around that time She says that she has recovered well from those problems. She says that her oral intake is much better. She feels well overall. Her stoma is functioning well. [facility] Medical History (Updated 06/26/25 @ 10:49 by Gideno Ruvalcaba MD) Cholecystostomy tube dysfunction Paroxysmal atrial fibrillation Generalized weakness History of diverticulosis Chronic pancreatitis Hypomagnesemia CAD (coronary artery disease) Atrial flutter History of sigmoidoscopy Multinodular thyroid Chronic vomiting Hypocalcemia Iron deficiency anemia Hyponatremia Acute cholecystitis History of acute cholecystitis History of pancreatitis Pancreatitis Insomnia Bilateral knee pain Polyarthralgia MARKIE (acute kidney injury) Back pain Arthritis History of transfusion of packed red blood cells Anemia Cardiomyopathy MARKIE (acute kidney injury) MARKIE (acute kidney injury) Anxiety Small bowel obstruction Myocardial infarction NSTEMI (non-ST elevated myocardial infarction) NSVT (nonsustained ventricular tachycardia) PVC (premature ventricular contraction) Hypertension Perforated diverticulum Irritable bowel syndrome with constipation Barretts esophagus GERD (gastroesophageal reflux disease) Surgical History History of insertion of tunneled central venous catheter (CVC) with port H/O insertion of cholecystostomy tube Status post embolization of uterine artery S/P colon resection PIC line (peripherally inserted central catheter) removal History of low anterior resection of rectum Status post cardiac catheterization H/O dilation and curettage History of exploratory laparotomy (05/11/23) S/P colostomy Colovesical fistula History of esophagogastroduodenoscopy (EGD) Hx of colonoscopy Family History Father Colon cancer Congestive heart failure Paternal Aunt Colon cancer Mother Congestive heart failure Afib Social History Household Members: None Housing: House Are you a primary rn care transition to a significant other at home: No Do you presently have visiting nurse or other home services: Yes Alcohol intake: never Comment: Pt refusing bed alarm Patient Tobacco Use Status: Former Tobacco user Tobacco use type: Cigarette Cigarette Packs Per Day: 0.5 Cigarettes Per Day: 10.0 Years Smoked: 25 e-Cigarette/Vaping Use: Former Use Second Hand Smoke Exposure: No Substance Use Type: Marijuana Advance Directives Date on File: 12/29/23 service: No Cognitive needs: No Hearing needs: No Vision needs: Yes Review of Systems Const Denies chills and Denies fever(s) Card Denies chest pain at rest Resp Denies cough GI Details: Stoma functioning well Denies abdominal pain Physical Exam Vital Signs: Last Vital Signs Pulse 98 06/26/25 10:22 BP 109/74 06/26/25 10:22 BMI result Body Mass Index 18.7 Const Other: On wheelchair but looks well General: comfortable and no acute distress Resp Effort & Inspection: normal respiratory effort Cardio Rate: regular rate GI Other: Stoma functioning well; drain stitch in place from her previous cholecystostomy tube Palpation (GI): Soft to palpation, not firm and nontender Assessment & Plan Assessment & Plan (1) Cholecystostomy tube dysfunction: Code(s): T85.518A - Breakdown (mechanical) of other gastrointestinal prosthetic devices, implants and grafts, initial encounter Category: Medical Plan: Her cholecystostomy tube had fallen off. She is doing well without this. I removed the anchoring stitch She is doing very well currently and seems to have recovered from her this has epilepticus and aphasia She has much better oral intake. She says she is slowly gaining some strength back She can follow up in the office on a p.r.n. basis. Coding Level of Care Code Est Pt Level 3 (81674) Diagnoses Cholecystostomy tube dysfunction T85.518A
--- OUTSIDE RECORDS SUMMARY | 2025-06-26 12:18 | XMS_ITS | Encounter Summary ---
Author Organization [facility] Address [address] [place] [address] Phone Care Team Providers Care Extermination Inspector Name Role Phone Nessa Hlilman NP Primary Care Provider [phone]- [phone] Lupillo Sinclair MD Unavailable [phone] Encounter Details Date Type Department Care Team (Late st Contact Info) Description 01/31/2025 Procedure Pass [facility] [place] - RF/IR [address] [facility], 2nd [place] [address] Social History Tobacco Use Types Packs/Day Years [...] documented as of this encounter Care Teams Extermination Inspector Relationship Specialty Start Date End Date Nessa Hillman NP [address] [place] [address] PCP - General Nurse Practitioner 06/03/24 Lupillo Sinclair MD [address] [address] Cardiology 12/24/24 documented as of this encounter Additional Source Comments The information contained in this document represents components of the legal health record. It is not the complete legal health record.[facility]
--- OUTSIDE RECORDS SUMMARY | 2025-06-26 12:18 | XMS_ITS | Encounter Summary ---
Author Organization [facility] Address [address] [place] [address] Phone Care Team Providers Care Modern Languages Professor Name Role Phone Nessa Hillman NP Primary Care Provider [phone] Lupillo Sinclair MD Unavailable [phone] Encounter Details Date Type Department Care Team (Late st Contact Info) Description 01/31/2025 Procedure Pass [facility] [place] [address] [facility], [address]th [place] [address] Social History Tobacco Use Types Packs/Day Years [...] documented as of this encounter Care Teams Modern Languages Professor Relationship Specialty Start Date End Date Nessa Hillman NP [address] [place] [address] PCP - General Nurse Practitioner 06/03/24 Lupillo Sinclair MD [address] [address] Cardiology 12/24/24 documented as of this encounter Additional Source Comments The information contained in this document represents components of the legal health record. It is not the complete legal health record.[facility]
--- OUTSIDE RECORDS SUMMARY | 2025-06-26 12:18 | XMS_ITS | Encounter Summary ---
Author Organization [facility] Address [address] [place] [address] Phone Care Team Providers Care Sales Ambassador Name Role Phone Nessa Hillman NP Primary Care Provider [phone]- [phone] Lupillo Sinclair MD Unavailable [phone] Encounter Details Date Type Department Care Team (Late st Contact Info) Description 01/26/2025 Procedure Pass [facility] [place] Imaging - RF/IR [address] [facility], 2nd [place] [address] Social History Tobacco Use Types Packs/Day Years [...] 12:00 AM EDT Lulu Zhang RN * [place] Suicide Severity Rating Scale (Screener/Recent Self-Report) Question [...] documented as of this encounter Care Teams Sales Ambassador Relationship Specialty Start Date End Date Nessa Hillman NP [address] [place] [address] PCP - General Nurse Practitioner 06/03/24 Lupillo Sinclair MD [address] [address] Cardiology 12/24/24 documented as of this encounter Additional Source Comments The information contained in this document represents components of the legal health record. It is not the complete legal health record.[facility]
--- OUTSIDE RECORDS SUMMARY | 2025-06-26 12:18 | XMS_ITS | Encounter Summary ---
Author Organization [facility] Address [address] [place] [address] Phone Care Team Providers Care Job Lithographer Name Role Phone Nessa Hillman NP Primary Care Provider [phone]- [phone] Lupillo Sinclair MD Unavailable [phone] Encounter Details Date Type Department Care Team (Late st Contact Info) Description 02/04/2025 Procedure [place] [facility] [place] - [place]IR [address] [facility], [address] [place] [address] Social History Tobacco Use Types Packs/Day Years [...] as of this encounter Care Teams Job Lithographer Relationship Specialty Start Date End Date Nessa Hillman NP [address] [place] [address] PCP - General Nurse Practitioner 06/03/24 Lupillo Sinclair MD [address] [address] Cardiology 12/24/24 documented as of this encounter Additional Source Comments The information contained in this document represents components of the legal health record. It is not the complete legal health record.[facility]
--- OUTSIDE RECORDS SUMMARY | 2025-06-26 12:18 | XMS_ITS | Encounter Summary ---
Author Organization [facility] Address [address] [place] [address] Phone Care Team Providers Care Director Treasurer Name Role Phone Nessa Hillman NP Primary Care Provider [phone] Lupillo Sinclair MD Unavailable [phone] Encounter Details Date Type Department Care Team (Late st Contact Info) Description 02/03/2025 Procedure Pass [facility], [place] [address] [facility], 6th [place] [address] Social History Tobacco Use Types Packs/Day Years [...] documented as of this encounter Care Teams Director Treasurer Relationship Specialty Start Date End Date Nessa Hillman NP [address] [place] [address] PCP - General Nurse Practitioner 06/03/24 Lupillo Sinclair MD [address] [address] Cardiology 12/24/24 documented as of this encounter Additional Source Comments The information contained in this document represents components of the legal health record. It is not the complete legal health record.[facility]
--- OUTSIDE RECORDS SUMMARY | 2025-06-26 12:18 | XMS_ITS | Encounter Summary ---
Author Organization [facility] Address [address] [facility] [address] [place] [address] Phone Care Team Providers Care Piggyback Clerk Name Role Phone Nessa Hillman NP Primary Care Provider [phone]- [phone] Lupillo Sinclair MD Unavailable [phone] Encounter Details Date Type Department Care Team (Late st Contact Info) Description 01/25/2025 Procedure Pass [facility] [place] Cardiac US [address] [place] [address] Social History Tobacco Use Types Packs/Day Years [...] 12:00 AM EDT Lulu Zhang RN * [place] Suicide Severity Rating Scale (Screener/Recent Self-Report) Question [...] documented as of this encounter Care Teams Piggyback Clerk Relationship Specialty Start Date End Date Nessa Hillman NP [address] [place] [address] PCP - General Nurse Practitioner 06/03/24 Lupillo Sinclair MD [address] [address] Cardiology 12/24/24 documented as of this encounter Additional Source Comments The information contained in this document represents components of the legal health record. It is not the complete legal health record.[facility]
--- OUTSIDE RECORDS SUMMARY | 2025-06-26 12:18 | XMS_ITS | Encounter Summary ---
Author Organization [facility] Address [address] [place] [address] Phone Care Team Providers Care Scientific Manager Name Role Phone Nessa Hillman NP Primary Care Provider [phone]- [phone] Lupillo Sinclair MD Unavailable [phone] Encounter Details Date Type Department Care Team (Late st Contact Info) Description 01/26/2025 Procedure Pass [facility] [place] Imaging - RF/IR [address] [facility], 2nd [place] [address] Social History Tobacco Use Types Packs/Day Years [...] 12:00 AM EDT Lulu Zhang RN * [place] Suicide Severity Rating Scale (Screener/Recent Self-Report) Question [...] documented as of this encounter Care Teams Scientific Manager Relationship Specialty Start Date End Date Nessa Hillman NP [address] [place] [address] PCP - General Nurse Practitioner 06/03/24 Lupillo Sinclair MD [address] [address] Cardiology 12/24/24 documented as of this encounter Additional Source Comments The information contained in this document represents components of the legal health record. It is not the complete legal health record.[facility]
--- OUTSIDE RECORDS SUMMARY | 2025-06-26 12:19 | XMS_ITS | Encounter Summary ---
Author Organization [facility] Address [address] [place] [address] Phone Care Team Providers Care Manufacturing Engineering Intern Name Role Phone Nessa Hillman NP Primary Care Provider [phone]- [phone] Lupillo Sinclair MD Unavailable [phone] Encounter Details Date Type Department Care Team (Late st Contact Info) Description 01/26/2025 Procedure [place] [facility] [place] - RF[place]IR [address] [facility], 2nd [place] [address] Social History Tobacco Use Types Packs/Day Years [...] 12:00 AM EDT Lulu Zhang RN * [place] Suicide Severity Rating Scale (Screener/Recent Self-Report) Question [...] documented as of this encounter Care Teams Manufacturing Engineering Intern Relationship Specialty Start Date End Date Nessa Hillman NP [address] [place] [address] PCP - General Nurse Practitioner 06/03/24 Lupillo Sinclair MD [address] [address] Cardiology 12/24/24 documented as of this encounter Additional Source Comments The information contained in this document represents components of the legal health record. It is not the complete legal health record.[facility]
--- OUTSIDE RECORDS SUMMARY | 2025-06-26 12:19 | XMS_ITS | Clinical Summary ---
Author Organization Located Within [facility] Address [address] [place] [address] Phone Care Team Providers Care Chore Tender Name Role Phone Nessa Hillman NP Primary Care Provider +1- [phone] Lupillo Sinclair MD Unavailable Allergies Active Allergy Reactions Criticality Noted Date [...] needed for nausea. 5 tablet 5 Active Active Problems Problem Noted Date Diagnosed Date Paroxysmal atrial fibrillation 01/26/2025 Hernia of abdominal cavity 01/07/2025 Takotsubo cardiomyopathy 07/26/2023 Assessment & Plan (10/10/2023 1:29 PM EST): It appears she had an NSTEMI and a Takotsubo's cardiomyopathy likely in the setting of sepsis and demand ischemia. She did have a cardiac catheterization at [facility] that took place in May 2023 [...] - 03/27/2025 11:59 PM EDT Hospital Encounter [facility] [address] [place] [address] Nicole Bragg MD Discharge Disposition: Home or Self Care from Last 3 Months Family History Medical [...] have reliable internet access at home? Ye mario 01/29/2025 Do you have a device (e.g., [...] EDT Anemia, unspecified type Atrial fib/flutter, transient ENDOSCOPY, SIGMOID 08/15/2024 9: 33 AM EST OUTSIDE LDL Routine 09/11/2015 from Last 3 Months or Most Recently Relevant to Health Maintenance Results * (ABNORMAL) Comprehensive metabolic panel (03/27/2025 5:56 AM EDT) SODIUM 133 133 - 146 mmol/L [facility] POTASSIUM 4.5 3.3 - 5.1 mmol/L [facility] CHLORIDE 95(L) 96 - 108 mmol/L [facility] CO2 21 21 - 35 mmol/L [facility] BUN 32(H) 6 - 19 mg/dL [facility] CREATININE 1.50 0.5 - 1.5 mg/dL [facility] GLUCOSE 102(H) 70 - 99 mg/dL [facility] ALBUMIN 3.6(L) 3.9 - 4.8 g/dL [facility] TOTAL PROTEIN 8.0 6.5 - 8.0 g/dL [facility] CALCIUM 8.8 8.4 - 10.3 mg/dL [facility] ALKALINE PHOSPHATASE 311(H) 39 - 117 U/L [facility] TOTAL BILIRUBIN 0.5 0.0 - 1.2 mg/dL [facility] AST 98(H) 0 - 37 U/L [facility] ALT 103(H) 0 - 40 U/L [facility] GLOBULIN 4.4 1 - 4.8 g/dL [facility] EGFR 38(L) >59 mL/min/1.7 3m2 [facility] Comment:Estimated glomerular filtration rate calculated using the CKD-EPI refit equation. ANION GAP 22(H) 10 - 20 mmol/L [facility] 03/27/2025 5:56 AM EDT 03/27/2025 7:24 AM EDT us Nicole Bragg MD LAB BLOOD ORDERABLES Final Res ult [facility] [address] [place] [address] * (ABNORMAL) CBC and differential (03/27/2025 5:56 AM EDT) WBC 16.97(H) 4.00 - 11.00 K/uL [facility] RBC 4.26 4.00 - 5.20 M/uL [facility] HGB 12.2 12.0 - 16.0 g/dL [facility] HCT 38.0 36.0 - 46.0 % [facility] PLT 285 150 - 450 K/uL [facility] MCV 89.2 80.0 - 100.0 fL [facility] MCH 28.6 27.0 - 31.0 pg [facility] MCHC 32.1 32.0 - 36.0 g/dL [facility] RDW 14.8(H) 11.5 - 14.5 % [facility] MPV 10.9 8.4 - 12.0 fL [facility] NRBC 0.00 0.00 /100 WBCs [facility] ABSOLUTE NRBC 0.00 0.00 K/uL [facility] DIFF METHOD Auto [facility] NEUTS 71.7 48.0 - 76.0 % [facility] LYMPHS 16.8(L) 18.0 - 41.0 % [facility] MONOS 7.3 4.0 - 11.0 % [facility] EOS 2.7 0.0 - 5.0 % [facility] BASOS 0.8 0.0 - 1.5 % [facility] Granulocytes, immature (%) 0.7 0.0 - 0.9 % [facility] ABSOLUTE NEUTS 12.17(H) 1.92 - 7.60 K/uL [facility] ABSOLUTE LYMPHS 2.85 0.72 - 4.10 K/uL [facility] ABSOLUTE MONOS 1.24(H) 0.16 - 1.10 K/uL [facility] ABSOLUTE EOS 0.46 0.00 - 0.50 K/uL [facility] ABSOLUTE BASOS 0.13 0.00 - 0.15 K/uL [facility] Granulocytes, immature 0.12(H) 0.00 - 0.09 K/uL [facility] Blood 03/27/2025 5:56 AM EDT 03/27/2025 7:24 AM EDT us Nicole Bragg MD LAB BLOOD ORDERABLES Final Res ult Performing Organization Address [facility] Co de Phone Number [address] [address] * (ABNORMAL) Magnesium (03/27/2025 5:56 AM EDT) MAGNESIUM 1.3(L) 1.6 - 2.6 mg/dL [facility] 03/27/2025 5:56 AM EDT 03/27/2025 7:24 AM EDT us Nicole Bragg MD LAB BLOOD ORDERABLES Final Res ult Performing Organization Address [facility] de Phone Number [address] [address] * (ABNORMAL) Lipase (03/27/2025 5:56 AM EDT) LIPASE 229(H) 16 - 63 U/L [facility] 03/27/2025 5:56 AM EDT 03/27/2025 7:24 AM EDT us Nicole Bragg MD LAB BLOOD ORDERABLES Final Res ult Performing Organization Address [facility] de Phone Number [address] [address] * Amylase (03/27/2025 5:56 AM EDT) AMYLASE 97 28 - 100 U/L [facility] 03/27/2025 5:56 AM EDT 03/27/2025 7:24 AM EDT us Nicole Bragg MD LAB BLOOD ORDERABLES Final Res ult Performing Organization Address [facility] Co de Phone Number [address] [address] * ENDOSCOPY, SIGMOID (08/15/2024 9:33 AM EST) 08/15/2024 9:33 AM EST Narrative Transcriptions Kadeem Lehman MD - 08/15/2024 9:33 AM EST [facility] Gastrointestinal Endoscopy Unit Patient Name: Kia Phelps Exam Date: 08/15/2024 9:33 AM Date of : 1960 Admit Type: Outpatient Age: 64 Room: [place] [address] Gender: Female Note Status: Finalized Attending MD: [...] procedure. Anesthesia administered sedation. 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 [employer] O MEDICARE REPLACEMENT MEDICARE PART A [place] [address] [facility] [place] [place] [address] [facility] [place] [address] Advance Directives For more information, please contact: [phone] (9AM - 5PM [facility], Monday-Monday) Documents on File Type Date Recorded Patient Foreman/[employer] Expl anation Healthcare Proxy 02/20/2025 4:01 PM * Full Code (Latest Code Status on File) Date Activated Date Inactivated Comments 01/07/2025 6:43 PM Question Answer Comments Code Status Confirmed With: Patient Care Teams Chore Tender Relationship Specialty Start Date End Date Nessa Hillman NP [address] [place] [address] PCP - General Nurse Practitioner 06/03/24 Lupillo Sinclair MD [address] [place] [address] Cardiology 12/24/24 Additional Source Comments The information contained in this document represents components of the legal health record. It is not the complete legal health record.[facility]
--- OUTSIDE RECORDS SUMMARY | 2025-06-26 12:19 | XMS_ITS | Encounter Summary ---
Author Organization [facility] Address [address] [place] [address] Phone Care Team Providers Care Maintenance Director Name Role Phone Nessa Hillman NP Primary Care Provider [phone]- [phone] Lupillo Sinclair MD Unavailable [phone] Encounter Details Date Type Department Care Team (Late st Contact Info) Description 01/07/2025 Procedure Pass [facility] PERIOPERATIVE DEPT [address] [place] [phone] Social History Tobacco Use Types Packs/Day Years [...] 1:00 PM EDT Shelbi Jimenez, RN * Jenkins Suicide Severity Rating Scale (Screener/Recent Self-Report) Question [...] documented as of this encounter Care Teams Maintenance Director Relationship Specialty Start Date End Date Nessa Hillman NP [address] [place] [address] PCP - General Nurse Practitioner 06/03/24 Lupillo Sinclair MD [address] [place] [address] Cardiology 12/24/24 documented as of this encounter Additional Source Comments The information contained in this document represents components of the legal health record. It is not the complete legal health record.[facility]
--- OUTSIDE RECORDS SUMMARY | 2025-06-26 12:19 | XMS_ITS | Encounter Summary ---
Author Organization [facility] Address [address] [place] [address] Phone Care Team Providers Care Gas Fitter Apprentice Name Role Phone Nessa Hillman NP Primary Care Provider [phone]- [phone] Lupillo Sinclair MD Unavailable [phone] Encounter Details Date Type Department Care Team (Late st Contact Info) Description 01/26/2025 Procedure Pass [facility] [place] [address] [facility], [address] [place] [address] Social History Tobacco Use Types Packs/Day Years [...] 12:00 AM EDT Lulu Zhang RN * Gem Suicide Severity Rating Scale (Screener/Recent Self-Report) Question [...] documented as of this encounter Care Teams Gas Fitter Apprentice Relationship Specialty Start Date End Date Nessa Hillman NP [address] [place] [address] PCP - General Nurse Practitioner 06/03/24 Lupillo Sinclair MD [address] [address] Cardiology 12/24/24 documented as of this encounter Additional Source Comments The information contained in this document represents components of the legal health record. It is not the complete legal health record.[facility]
--- OUTSIDE RECORDS SUMMARY | 2025-06-26 12:20 | XMS_ITS | Encounter Summary ---
Author Organization [facility] Address [address] [facility] [address] [place] [address] Phone Care Team Providers Care Paper Coater Name Role Phone Deion Asencio MD Primary Care Provider + Nessa Hillman NP Primary Care Provider [phone]- [phone] Lupillo Sinclair MD Unavailable [phone] Encounter Details Date Type Department Care Team (Late st Contact Info) Description 08/03/2023 Procedure Pass Non-Invasive Cardiology [address] [place], [place] [id number] Social History Tobacco Use Types Packs/Day Years [...] documented as of this encounter Care Teams Paper Coater Relationship Specialty Start Date End Date Deion Asencio MD [address] [place] [address] PCP - General Family Medicine 06/08/18 06/02/24 Nessa Hillman NP [address] [place] [address] PCP - General Nurse Practitioner 06/03/24 Lupillo Sinclair MD [address] [place] [address] Cardiology 12/24/24 documented as of this encounter Additional Source Comments The information contained in this document represents components of the legal health record. It is not the complete legal health record.[facility]
--- OUTSIDE RECORDS SUMMARY | 2025-06-26 12:20 | XMS_ITS | Encounter Summary ---
Author Organization [facility] Address [address] [place] [address] Phone Care Team Providers Care Press Manager Name Role Phone Nessa Hillman NP Primary Care Provider [phone]- [phone] Lupillo Sinclair MD Unavailable [phone] Encounter Details Date Type Department Care Team (Late st Contact Info) Description 08/15/2024 Procedure Pass [facility] PERIOP [address] [place] [address] Social History Tobacco Use Types [...] documented as of this encounter Care Teams Press Manager Relationship Specialty Start Date End Date Nessa Hillman NP [address] [place] [address] PCP - General Nurse Practitioner 06/03/24 Lupillo Sinclair MD [address] [address] Cardiology 12/24/24 documented as of this encounter Additional Source Comments The information contained in this document represents components of the legal health record. It is not the complete legal health record.[facility]
--- OUTSIDE RECORDS SUMMARY | 2025-06-26 12:20 | XMS_ITS | Encounter Summary ---
Author Organization [facility] Address [address] [place] [address] Phone Care Team Providers Care Industrial Custodian Name Role Phone Nessa Hillman NP Primary Care Provider [phone]- [phone] Lupillo Sinclair MD Unavailable [phone] Encounter Details Date Type Department Care Team (Late st Contact Info) Description 02/17/2025 Procedure Pass [facility] Imaging - RF/IR [address] [place] [address] Social History Tobacco Use Types Packs/Day Years [...] documented as of this encounter Care Teams Industrial Custodian Relationship Specialty Start Date End Date Nessa Hillman NP [address] [place] [address] PCP - General Nurse Practitioner 06/03/24 Lupillo Sinclair MD [address] [address] Cardiology 12/24/24 documented as of this encounter Additional Source Comments The information contained in this document represents components of the legal health record. It is not the complete legal health record.[facility]
--- OUTSIDE RECORDS SUMMARY | 2025-06-26 12:20 | XMS_ITS | Encounter Summary ---
Author Organization [facility] Address [address] [place] [address] Phone Care Team Providers Care Senior Process Analyst Name Role Phone Nessa Hillman NP Primary Care Provider [phone]- [phone] Lupillo Sinclair MD Unavailable [phone] Encounter Details Date Type Department Care Team ([facility] st Contact Info) Description 02/17/2025 Procedure Pass [facility]ter [facility] [address] [facility], 5[address] Floor, [address] [place] [address] Social History Tobacco Use Types Packs/Day Years [...] documented as of this encounter Care Teams Senior Process Analyst Relationship Specialty Start Date End Date Nessa Hillman NP [address] [place] [address] PCP - General Nurse Practitioner 06/03/24 Lupillo Sinclair MD [address] [address] Cardiology 12/24/24 documented as of this encounter Additional Source Comments The information contained in this document represents components of the legal health record. It is not the complete legal health record.[facility]
--- OUTSIDE RECORDS SUMMARY | 2025-06-26 12:20 | XMS_ITS | Clinical Summary ---
Author Organization [facility] Address [address] [place] [address] Care Team Providers Care Psychologist Experimental Name Role Phone Joi Rebollar MD Primary [...] deficiency Take 1 tablet by mouth daily. Active thiamine mononitrate (VITAMIN B-1) 100 MG tabletIndications :Nutritional deficiency Take 1 tablet (100 mg total) by mouth daily. Active fluticasone (FloNASE) 50 mcg/spray nasal sprayIndications: Allergic rhinitis, unspecified seasonality, unspecified trigger 1 spray into each nostril daily. Active Magnesium 400 MG TabIndications:Nu tritional deficiency Take 800 mg by mouth nightly. Active benzonatate (TESSALON) 100 MG capsuleIndication s:Anxiety Take 1 capsule (100 mg total) by mouth 3 (three) times a day as needed for cough. 09/17/2 025 Active acetaminophen (TYLENOL) 325 MG tabletIndications :Intra-abdominal [...] before June 02, 2025. 9 tablet Active cefpodoxime (VANTIN) 200 MG tabletIndications :Septic shock (HCC) Take 1 tablet (200 mg total) by mouth every 12 (twelve) hours around the clock. 2024 Discontinued(S top Taking at Discharge) losartan (COZAAR) 25 MG tabletIndications :Stress-induced cardiomyopathy Take 1 tablet (25 mg total) by mouth daily. 2024 Discontinued(S top Taking at Discharge) metoPROLOL [...] tablet (40 mg total) by mouth daily. 2024 Discontinued atorvastatin (Lipitor) 20 MG tabletIndications :Stress-induced cardiomyopathy Take 1 tablet (20 mg total) by mouth daily. 2024 Discontinued mirtazapine (REMERON) 15 MG tabletIndications :Anxiety Take [...] mg/0.1 mL Liquid nasal spray deviceIndications :Anxiety Capitan contents (4mg) into one nostril once. May [...] as there aren't plans to continue benzos [employer] (per patient preference); options are limited given prolonged QTC Assessment & Plan (06/01/2025 2:22 PM EDT): - continue Valium 6mg PRN - since Remeron isn't effective for her, adjusted to scheduled Rozerem and dc'd Remeron - Home insomnia regimen: uses Soma for sleeping- which we will resume on discharge as there aren't plans to continue [employer] (per patient preference); options are limited given [...] O's, daily weight. She should follow-up with qa software test engineer as outpatient, to restart Aldactone, amiodarone and [...] O's, daily weight. She should follow-up with qa software test engineer as outpatient, to restart Aldactone, amiodarone and Farxiga Assessment & Plan (05/28/2025 11:42 AM EDT): CHADS2 score is 2 Last echocardiogram without significant change, normal right and left ventricular size and function, ejection fraction is 58% patient has been receiving IV fluids due to dehydration Will follow-up with qa software test engineer as outpatient, to restart Aldactone, amiodarone and [...] -Continue atorvastatin 20 mg daily - outpatient qa software test engineer will need to address: AC for afib, [...] -Continue atorvastatin 20 mg daily - outpatient qa software test engineer will need to address: AC for afib, [...] O's, daily weight. She should follow-up with qa software test engineer as outpatient, to restart Aldactone, amiodarone and [...] O's, daily weight. She should follow-up with qa software test engineer as outpatient, to restart Aldactone, amiodarone and Farxiga Assessment & Plan (05/28/2025 11:42 AM EDT): CHADS2 score is 2 Last echocardiogram without significant change, normal right and left ventricular size and function, ejection fraction is 58% patient has been receiving IV fluids due to dehydration Will follow-up with qa software test engineer as outpatient, to restart Aldactone, amiodarone and [...] -Continue atorvastatin 20 mg daily - outpatient qa software test engineer will need to address: AC for afib, [...] -Continue atorvastatin 20 mg daily - outpatient qa software test engineer will need to address: AC for afib, [...] with general surgery Dr. Walton on 06/10 [facility] Assessment & Plan (05/29/2025 10:12 [...] with general surgery Dr. Walton on 06/10 [facility] Assessment & Plan (05/28/2025 11:53 [...] with general surgery Dr. Walton on 06/10 [facility] Assessment & Plan (05/27/2025 8:45 AM EDT): [...] O's, daily weight. She should follow-up with qa software test engineer as outpatient, to restart Aldactone, amiodarone and [...] O's, daily weight. She should follow-up with qa software test engineer as outpatient, to restart Aldactone, amiodarone and Farxiga Assessment & Plan (05/28/2025 11:42 AM EDT): CHADS2 score is 2 Last echocardiogram without significant change, normal right and left ventricular size and function, ejection fraction is 58% patient has been receiving IV fluids due to dehydration Will follow-up with qa software test engineer as outpatient, to restart Aldactone, amiodarone and [...] -Continue atorvastatin 20 mg daily - outpatient qa software test engineer will need to address: AC for afib, [...] -Continue atorvastatin 20 mg daily - outpatient qa software test engineer will need to address: AC for afib, [...] as there aren't plans to continue benzos fdc (per patient preference); options are limited given prolonged QTC Assessment & Plan (06/01/2025 2:22 PM EDT): - continue Valium 6mg PRN - since Remeron isn't effective for her, adjusted to scheduled Rozerem and dc'd Remeron - Home insomnia regimen: uses Soma for sleeping- which we will resume on discharge as there aren't plans to continue benzos [employer] (per patient preference); options are limited given [...] drainage. She presented on 04 07 at [place] with concerns of draining from her fistula [...] drainage. She presented on 04 07 at [place] with concerns of draining from her fistula [...] drainage. She presented on 04 07 at [place] with concerns of draining from her fistula [...] drainage. She presented on 04 07 at [place] with concerns of draining from her fistula [...] drainage. She presented on 04 07 at [place] with concerns of draining from her fistula [...] drainage. She presented on 04 07 at [place] with concerns of draining from her fistula [...] treated with antibiotics. \Plan Continue antibiotics Continue lead driver plan and follow with investigations. 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 Walton on 06/10 [facility] Assessment & Plan (05/29/2025 10:12 [...] with general surgery Dr. Walton on 06/10 [facility] Assessment & Plan (05/28/2025 11:53 [...] with general surgery Dr. Walton on 06/10 [facility] Assessment & Plan (05/27/2025 8:45 AM EDT): [...] drainage. She presented on 04 07 at [place] with concerns of draining from her fistula [...] drainage. She presented on 04 07 at [place] with concerns of draining from her fistula [...] drainage. She presented on 04 07 at [place] with concerns of draining from her fistula [...] drainage. She presented on 04 07 at [place] with concerns of draining from her fistula [...] drainage. She presented on 04 07 at [place] with concerns of draining from her fistula [...] drainage. She presented on 04 07 at [place] with concerns of draining from her fistula [...] treated with antibiotics. \Plan Continue antibiotics Continue lead driver plan and follow with investigations. 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 Recommend MVI with minerals blelo PLAN per ID Continue Ceftriaxone 1g IV [...] multiple admission and draining who presented to [place] on 04/27/2025 with increased drainage from fistula [...] multiple admission and draining who presented to [place] on 04/27/2025 with increased drainage from fistula [...] multiple admission and draining who presented to [place] on 04/27/2025 with increased drainage from fistula [...] multiple admission and draining who presented to [place] on 04/27/2025 with increased drainage from fistula [...] multiple admission and draining who presented to [place] on 04/27/2025 with increased drainage from fistula [...] treated with antibiotics. \Plan Continue antibiotics Continue lead driver plan and follow with investigations. 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 She should follow-up with qa software test engineer as outpatient, to restart Aldactone, amiodarone and [...] O's, daily weight. She should follow-up with qa software test engineer as outpatient, to restart Aldactone, amiodarone and Farxiga Assessment & Plan (05/28/2025 11:42 AM EDT): CHADS2 score is 2 Last echocardiogram without significant change, normal right and left ventricular size and function, ejection fraction is 58% patient has been receiving IV fluids due to dehydration Will follow-up with qa software test engineer as outpatient, to restart Aldactone, amiodarone and [...] -Continue atorvastatin 20 mg daily - outpatient qa software test engineer will need to address: AC for afib, [...] -Continue atorvastatin 20 mg daily - outpatient qa software test engineer will need to address: AC for afib, [...] hold Jardiance to be restarted by outpatient qa software test engineer. - Continue metoprolol 25 mg daily - Continue losartan 25 mg daily - Continue holding Jardiance and spironolactone Assessment & Plan (05/20/2025 12:03 PM EDT): Recent echo results from 05/14 reviewed by cardiology, with presumed stress cardiomyopathy. Ejection fraction improved to 58%. Recommending restarting metoprolol succinate and losartan. Advised to hold Jardiance to be restarted by outpatient qa software test engineer. - Continue metoprolol 25 mg daily - Continue losartan 25 mg daily - Continue holding Jardiance and spironolactone Assessment & Plan (05/19/2025 6:40 AM EDT): Recent echo results from 05/14 reviewed by cardiology, with presumed stress cardiomyopathy. Ejection fraction improved to 58%. Recommending restarting metoprolol succinate and losartan. Advised to hold Jardiance to be restarted by outpatient qa software test engineer. - Continue metoprolol 25 mg daily - Continue losartan 25 mg daily - Continue holding Jardiance and spironolactone Assessment & Plan (05/18/2025 6:47 AM EDT): Recent echo results from 05/14 reviewed by cardiology, with presumed stress cardiomyopathy. Ejection fraction improved to 58%. Recommending restarting metoprolol succinate and losartan. Advised to hold Jardiance to be restarted by outpatient qa software test engineer. - Continue metoprolol 25 mg daily - Continue losartan 25 mg daily - Continue holding Jardiance and spironolactone Assessment & Plan (05/17/2025 2:37 PM EDT): Recent echo results from 05/14 reviewed by cardiology, with presumed stress cardiomyopathy. Ejection fraction improved to 58%. Recommending restarting metoprolol succinate and losartan. Advised to hold Jardiance to be restarted by outpatient qa software test engineer. - Continue metoprolol 25 mg daily - Continue losartan 25 mg daily - Continue holding Jardiance and spironolactone Assessment & Plan (05/16/2025 7:39 AM EDT): Recent echo results from 05/14 reviewed by cardiology, with presumed stress cardiomyopathy. Ejection fraction improved to 58%. Recommending restarting metoprolol succinate and losartan. Advised to hold Jardiance to be restarted by outpatient qa software test engineer. - Continue metoprolol 25 mg daily - Continue losartan 25 mg daily - Continue holding Jardiance and spironolactone Assessment & Plan (05/15/2025 2:08 PM EDT): Cardiology's recommendations were appreciated [05/14]. Recent echo results from 05/14 showed improved ejection fraction of 58%. Recommending restarting metoprolol succinate and losartan. Advised to hold Jardiance to be restarted by outpatient qa software test engineer. Plan Recommends metoprolol Losartan 25 mg daily Continue hold on Jardiance and spironolactone Assessment & Plan (05/14/2025 4:48 PM EDT): Cardiology's recommendations were appreciated [05/14]. Recent echo results from 05/14 showed improved ejection fraction of 58%. Recommending restarting metoprolol succinate and losartan. Advised to hold Jardiance to be restarted by outpatient qa software test engineer. 1. Discussed restarting metoprolol with attending 2. [...] Description 06/06/2025 Orders Only INPATIENT REHAB [address] [place] [address] Astrid Marsh PA-C Intra-abdominal abscess (HCC) 05/21/2025 4:07 PM EDT - 06/03/2025 11:37 AM EDT Hospital Encounter INPATIENT REHAB [address] [facility] [place] [address] Jhony Laird MD Starrett, Garrison J, [...] PM EDT Hospital Encounter [facility] [address] [facility] [place] [address] Max Young MD Bergner, Anat, MD Vergara, Cunegundo, MD Castiglione, Andrew, MD McClure, Mitchell H, MD Anxiety (Primary Dx); Septic shock-resolved; Stress-induced cardiomyopathy; Nutritional deficiency; Pericarditis, unspecified chronicity, unspecified type; Intra-abdominal abscess (HCC); Allergic rhinitis, unspecified seasonality, unspecified trigger; Atrial fibrillation, unspecified type (HCC) Discharge Disposition: Inpatient Rehab Facility 05/08/2025 7:10 PM EDT Ancillary Procedure [facility] [address] [facility] [place] [address] Provider, File Room 05/08/2025 7:05 PM EDT Ancillary Procedure [facility] [address] [facility] [place] [address] Provider, File Room 05/08/2025 7:00 PM EDT Ancillary Procedure [facility] [address] [facility] [place] [address] Provider, File Room 05/08/2025 7:00 PM EDT Ancillary Procedure [facility] [address] [facility] [place] [address] Provider, File Room 05/06/2025 Orders Only [facility] [address] [facility] [place] [address] Provider, File Room from Last 3 Months Social History Tobacco Use Types Packs/Day Years Used Date Smoking Tobacco: Former Cigarettes Smokeless Tobacco: Never Tobacco Cessation:Counseling Given: No Alcohol Use Standard Drinks/Week Comments Never 0 (1 standard drink = 0.6 oz pur e alcohol) [facility] Utilities Answer Date Recorded In the past 12 months has e [employer], gas, oil, or water [employer] threatened to shut off services in your [...] any time in the past 12 m [facility], were you homeless or living in a nursing home (including now)? No 05/10/2025 Comments Unknown Sex [...] - PCV) 1978 Mammogram 1999 Colonoscopy 02/07/2004 RSV Vaccine 50 years and older and Patients (1 - Risk 50-74 years 1-dose series) 2009 Zoster (Shingles) Vaccine (1 of 2) 2009 DXA Bone Density (Females,Ages 65 and older) [...] 4.0 - 11.0 Thou/uL 06/03/2025 7:11 AM [facility] Platelet Count 251 150 - 450 Thou/uL 06/03/2025 7:11 AM [facility] Hemoglobin 7.5(L) 11.7 - 15.7 g/dL 06/03/2025 7:11 AM [facility] Hematocrit 23.5(L) 35.0 - 47.0 % 06/03/2025 7:11 AM [facility] Red Blood Cell Count 2.58(L) 4.00 - 5.40 Mil/uL 06/03/2025 7:11 AM [facility] MCV 91 80 - 100 fL 06/03/2025 7:11 AM [facility] MCH 29.1 27.0 - 31.0 pg 06/03/2025 7:11 AM [facility] MCHC 31.9 30.0 - 36.0 g/dL 06/03/2025 7:11 AM [facility] RDW 18.2(H) 11.5 - 14.5 % 06/03/2025 7:11 AM [facility] MPV 9.5 7.5 - 12.5 fL 06/03/2025 7:11 AM [facility] Blood Blood specimen / Unknown 06/03/2025 6:08 AM EDT 06/03/2025 6:51 AM EDT us Anika Lau PA-C LAB BLOOD ORDERABLES Final Re sult [address] [address], [address] [address] * (ABNORMAL) Magnesium (AM) (06/03/2025 6:08 AM EDT) Only the most recent of20 resultswithin the time period is included. Pathologist [facility] Magnesium 1.5(L) 1.6 - 2.7 mg/dL 06/03/2025 7:34 AM EDT [facility] Blood Blood specimen / Unknown 06/03/2025 6:08 AM EDT 06/03/2025 6:51 AM EDT Anika MORIN-C LAB BLOOD ORDERABLES [place] [address], [place] [address] * (ABNORMAL) Lipase (06/03/2025 6:08 AM EDT) Only the most recent of2 resultswithin the time period is included. Lipase 256(H) 13 - 60 U/L 06/03/2025 7:34 AM EDT [facility] Blood Blood specimen / Unknown 06/03/2025 6:08 AM EDT 06/03/2025 6:51 AM EDT Anika MORIN-C LAB BLOOD ORDERABLES [place] [address], [place] [address] * (ABNORMAL) Comprehensive Metabolic Panel (06/03/2025 6:08 AM EDT) Only the most recent of7 resultswithin the time period is included. Glucose 92 65 - 99 mg/dL 06/03/2025 7:34 AM EDT [facility] Comment:Fasting: <100 mg/dL, Non-Fasting: <200 mg/dL (ADA 2004) Blood Urea Nitrogen (BUN) 9 8 - 21 mg/dL 06/03/2025 7:34 AM EDT [facility] Creatinine 0.52 0.40 - 1.10 mg/dL 06/03/2025 7:34 AM EDT [facility] eGFR >90 >59 06/03/2025 7:34 AM EDT [facility] Comment:CKD-EPI (2020) in mL /min/1.73 sq meters. Sodium 135(L) 136 - 145 mmol/L 06/03/2025 7:34 AM [facility] Potassium 3.9 3.4 - 5.3 mmol/L 06/03/2025 7:34 AM [facility] Chloride 104 98 - 107 mmol/L 06/03/2025 7:34 AM [facility] CO2 24 22 - 33 mmol/L 06/03/2025 7:34 AM [facility] Calcium 8.0(L) 8.7 - 10.5 mg/dL 06/03/2025 7:34 AM [facility] Alkaline Phosphatase 119 32 - 122 U/L 06/03/2025 7:34 AM [facility] Aspartate Aminotrans (AST) 21 10 - 50 U/L 06/03/2025 7:34 AM [facility] Alanine Aminotrans (ALT) 11 10 - 50 U/L 06/03/2025 7:34 AM [facility] Bilirubin, Total 0.3 0.2 - 1.0 mg/dL 06/03/2025 7:34 AM [facility] Protein, Total 5.2(L) 6.3 - 8.3 g/dL 06/03/2025 7:34 AM [facility] Albumin 2.5(L) 3.4 - 4.8 g/dL 06/03/2025 7:34 AM [facility] BUN/Creatinine Ratio 17 10.0 - 25.0 Ratio 06/03/2025 7:34 AM [facility] Globulin 2.7 1.5 - 3.9 g/dL 06/03/2025 7:34 AM [facility] Albumin/Globulin Ratio 0.9(L) 1.0 - 3.0 Ratio 06/03/2025 7:34 AM [facility] Anion Gap 7 7 - 17 06/03/2025 7:34 AM [facility] Blood Blood specimen / Unknown 06/03/2025 6:08 AM EDT 06/03/2025 6:51 AM EDT us Anika Lau PA-C LAB BLOOD ORDERABLES Final Re sult [facility] [address] [place] [address], [facility] [address] [place] [address] * ECG 12 lead (06/02/2025 10:24 AM EDT) Only the most recent of15 resultswithin the time period is included. Ventricular rate 81 BPM EKG [facility] Atrial rate 81 BPM EKG [facility] P-R interval 170 ms EKG [facility] QRS duration 66 ms EKG [facility] Q-T interval 406 ms EKG [facility] QTC calculation (Bazett) 472 ms EKG [facility] P axis 51 degrees EKG [facility] R axis 16 degrees EKG [facility] T axis 41 degrees [facility] 06/02/2025 10:2 4 AM EDT Narrative EKG [facility] - 06/02/2025 10:30 AM EDT Normal sinus rhythm Nonspecific T wave abnormality Abnormal ECG Confirmed by MD Pace John ([id number]) on 06/02/2025 10:30:22 AM Procedure Note Alvaro Pace MD - 06/02/2025 Normal sinus rhythm Nonspecific T wave abnormality Abnormal ECG Confirmed by MD Pace John ([id number]) on 06/02/2025 10:30:22 AM us Jhony Laird MD ECG ORDERABLES [facility] * Lactic Acid, Plasma (STAT) (06/02/2025 7:45 AM EDT) Only the most recent of15 resultswithin the time period is included. Lactic Acid 0.8 0.5 - 1.9 mmol/L 06/02/2025 8:33 AM EDT [facility] Blood Blood specimen / Unknown 06/02/2025 7:45 AM EDT 06/02/2025 8:03 AM EDT us Anika Lau PA-C LAB BLOOD ORDERABLES Final Re sult [facility] [address] [place] [address], [facility] [address] [place] [address] * (ABNORMAL) Complete Blood Count, with Differential (06/02/2025 5:18 AM EDT) Only the most recent of6 resultswithin the time period is included. White Blood Cell Count 10.6 4.0 - 11.0 Thou/uL 06/02/2025 5:59 AM [facility] Platelet Count 269 150 - 450 Thou/uL 06/02/2025 5:59 AM [facility] Hemoglobin 7.9(L) 11.7 - 15.7 g/dL 06/02/2025 5:59 AM [facility] Hematocrit 25.0(L) 35.0 - 47.0 % 06/02/2025 5:59 AM [facility] Red Blood Cell Count 2.79(L) 4.00 - 5.40 Mil/uL 06/02/2025 5:59 AM [facility] MCV 90 80 - 100 fL 06/02/2025 5:59 AM [facility] MCH 28.3 27.0 - 31.0 pg 06/02/2025 5:59 AM [facility] MCHC 31.6 30.0 - 36.0 g/dL 06/02/2025 5:59 AM [facility] RDW 18.0(H) 11.5 - 14.5 % 06/02/2025 5:59 AM [facility] MPV 9.3 7.5 - 12.5 fL 06/02/2025 5:59 AM [facility] Neutrophils Auto 75.6 % [facility] Immature Granulocytes 0.7 % 06/02/2025 5:59 AM [facility] Lymphocytes Auto 11.7 % 06/02/20 5:59 AM [facility] Monocytes Auto 9.8 % 06/02/2025 5:59 AM [facility] Eosinophils Auto 1.6 % 06/02/20 5:59 AM [facility] Basophils Auto 0.6 % 06/02/2025 5:59 AM EDT [facility] Abs Neutrophils Auto 7.99(H) 2.00 - 7.50 Thou/uL 06/02/2025 5:59 AM EDT [facility] Abs Immature Granulocytes 0.07 0.00 - 0.10 Thou/uL 06/02/2025 5:59 AM EDT [facility] Abs Lymphocytes Auto 1.24(L) 1.50 - 4.50 Thou/uL 06/02/2025 5:59 AM EDT [facility] Abs Monocytes Auto 1.04 0.20 - 1.50 Thou/uL 06/02/2025 5:59 AM EDT [facility] Abs Eosinophils Auto 0.17 0.00 - 0.70 Thou/uL 06/02/2025 5:59 AM EDT [facility] Abs Basophils Auto 0.06 0.00 - 0.20 Thou/uL 06/02/2025 5:59 AM EDT [facility] Blood Blood specimen / Unknown 06/02/2025 5:18 AM EDT 06/02/2025 5:49 AM EDT us Jhony Laird MD LAB BLOOD ORDERAB[place] [address], [place] [address] * CT Abdomen+pelvis w/contrast (06/01/2025 2:25 PM [...] Fleischner guidelines were followed. Anika Lau PA-C IM CT ORDERABLES Final Resul t * (ABNORMAL) Basic Metabolic Panel (06/01/2025 5:30 AM EDT) Only the most recent of21 resultswithin the time period is included. Glucose 100(H) 65 - 99 mg/dL 06/01/2025 6:03 AM [facility] Comment:Fasting: <100 mg/dL, Non-Fasting: <200 mg/dL (ADA 2005) Blood Urea Nitrogen (BUN) 31(H) 8 - 21 mg/dL 06/01/2025 6:03 AM [facility] Creatinine 1.26(H) 0.40 - 1.10 mg/dL 06/01/2025 6:03 AM [facility] eGFR 47(L) >59 06/01/2025 6:03 AM [facility] Comment:CKD-EPI (2020) in mL /min/1.73 sq meters. Sodium 133(L) 136 - 145 mmol/L 06/01/2025 6:03 AM EDT [facility] Potassium 4.5 3.4 - 5.3 mmol/L 06/01/2025 6:03 AM [facility] Chloride 103 98 - 107 mmol/L 06/01/2025 6:03 AM EDT [facility] CO2 20(L) 22 - 33 mmol/L 06/01/2025 6:03 AM [facility] Anion Gap 10 7 - 17 06/01/2025 6:03 AM [facility] Calcium 8.7 8.7 - 10.5 mg/dL 06/01/2025 6:03 AM [facility] BUN/Creatinine Ratio 25 10.0 - 25.0 Ratio 06/01/2025 6:03 AM [facility] Blood Blood specimen / Unknown 06/01/2025 5:30 AM EDT 06/01/2025 5:35 AM EDT us Anika Lau PA-C LAB BLOOD ORDERABLES [place] [address], [address] [address] * XR Knee 3 views-Bilateral (05/28/2025 4:06 [...] in the right knee. Sydni Barakat MD IM DIAGNOSTIC IMAGING ORDER PAT Final Result * Phosphorus (AM) (05/27/2025 6:20 AM EDT) Only the most recent of10 resultswithin the time period is included. Phosphorus 2.8 2.7 - 4.5 mg/dL 05/27/2025 7:24 AM EDT [facility] Blood Blood specimen / Unknown 05/27/2025 6:20 AM EDT 05/27/2025 6:49 AM EDT Jessica Earl PA-C LAB BLOOD ORDERABLES Final Result [address] [address], [address] [address] * Sodium, Urine, Random (05/25/2025 2:52 PM EDT) Sodium, Urine Random <20 mmol/L 05/25/2025 3:28 PM EDT [facility] Comment:Reference range not established for random specimen. Urine Urine specimen / Unknown 05/25/2025 2:52 PM EDT 05/25/2025 3:10 PM EDT us Merva Ward SLAG WORKER URINE ORDERABLES Final Result Performing Organization Address [facility]/[place] [address], [place] [address] * Osmolality, Urine (05/25/2025 2:52 PM EDT) Osmolality, Urine 546 50 - 1,200 mOsm/Kg 05/25/2025 4:13 PM EDT [facility] Urine Urine specimen / Unknown 05/25/2025 2:52 PM EDT 05/25/2025 3:10 PM EDT us Merva Ward SLAG WORKER URINE ORDERABLES Final Result Performing Organization Address City/[facility] [place] [address], [place] [address] * (ABNORMAL) Renal Function Panel (05/24/2025 5:13 AM EDT) Glucose 92 65 - 99 mg/dL 05/24/2025 7:38 AM T [facility] Comment:Fasting: <100 mg/dL, Non-Fasting: <200 mg/dL (ADA 2005) Blood Urea Nitrogen (BUN) 31(H) 8 - 21 mg/dL 05/24/2025 7:38 AM [facility] Creatinine 1.05 0.40 - 1.10 mg/dL 05/24/2025 7:38 AM T [facility] eGFR 59(L) >59 05/24/2025 7:38 AM T [facility] Comment:CKD-EPI (2020) in mL /min/1.73 sq meters. Sodium 131(L) 136 - 145 mmol/L 05/24/2025 7:38 AM EDT [facility] Potassium 4.4 3.4 - 5.3 mmol/L 05/24/2025 7:38 AM [facility] Chloride 98 98 - 107 mmol/L 05/24/2025 7:38 AM [facility] CO2 21(L) 22 - 33 mmol/L 05/24/2025 7:38 AM [facility] Calcium 8.6(L) 8.7 - 10.5 mg/dL 05/24/2025 7:38 AM [facility] Phosphorus 3.0 2.7 - 4.5 mg/dL 05/24/2025 7:38 AM [facility] Albumin 3.4 3.4 - 4.8 g/dL 05/24/2025 7:38 AM [facility] BUN/Creatinine Ratio 30(H) 10.0 - 25.0 Ratio 05/24/2025 7:38 AM [facility] Blood Blood specimen / Unknown 05/24/2025 5:13 AM EDT 05/24/2025 6:24 AM EDT us Sydni Barakat MD LAB BLOOD ORDERABLES [place] [address], [address] [address] * (ABNORMAL) High Sensitivity D-Dimer (05/17/2025 5:09 AM EDT) Only the most recent of7 resultswithin the time period is included. High Sensitivity D-Dimer 344(H) <230 ng/mL DDU 05/17/2025 6:23 AM T [facility] Comment: The threshold for exclusion of venous [...] BLOOD ORDERABLES Final Result Performing Organization Address [facility] [place] [address], [place] [address] * Partial Thromboplastin Time (PTT) (05/17/2025 5:09 AM EDT) Only the most recent of7 resultswithin the time period is included. Anticoagulant NO ANTI COAGULANT MEDS 05/17/2025 5:09 AM EDT [facility] Partial Thromboplastin Time (PTT) 28 25 - 36 seconds 05/17/2025 6:23 AM EDT [facility] Blood Blood specimen / Unknown 05/17/2025 5:09 AM EDT 05/17/2025 6:04 AM EDT us Malvin Boone MD LAB BLOOD ORDERABLES Final Result Performing Organization Address [facility] [place] [address], [place] [address] * (ABNORMAL) PROTIME-INR (05/17/2025 5:09 AM EDT) Only the most recent of8 resultswithin the time period is included. Anticoagulant NO ANTI COAGULANT MEDS 05/17/2025 5:09 AM EDT [facility] Prothrombin Time (PT) 17.1(H) 10.0 - 13.5 seconds 05/17/2025 6:23 AM EDT [facility] INR 1.5 05/17/2025 6:23 AM EDT [facility] Comment:INR Therapeutic Rang es: Standard dose anticoagulant 2.0 to 3.0, High dose anticoagulant 2.5-3.5. Blood Blood specimen / Unknown 05/17/2025 5:09 AM EDT 05/17/2025 6:04 AM EDT us Malvin Boone MD LAB BLOOD ORDERABLES Final Result Performing Organization Address City/[facility] Co de Phone Number [address] [address], [address] [address] * Fibrinogen Level (05/17/2025 5:09 AM EDT) Only the most recent of8 resultswithin the time period is included. Fibrinogen 179 148 - 435 mg/dL 05/17/2025 6:23 AM EDT [facility] Blood Blood specimen / Unknown 05/17/2025 5:09 AM EDT 05/17/2025 6:04 AM EDT us Malvin Boone MD LAB BLOOD ORDERABLES Final Result Performing Organization Address [facility] Co de Phone Number [address] [address], [address] [address] * Protein, Total (05/17/2025 5:09 AM EDT) Protein, Total 6.3 6.3 - 8.3 g/dL 05/17/2025 6:30 AM EDT [facility] Blood Blood specimen / Unknown 05/17/2025 5:09 AM EDT 05/17/2025 6:04 AM EDT us Malvin Boone MD LAB BLOOD ORDERABLES Final Result Performing Organization Address City/[facility] Co de Phone Number [address] [address], [address] [address] * Lactate Dehydrogenase (LDH) (05/17/2025 5:09 AM EDT) Only the most recent of2 resultswithin the time period is included. Lactate Dehydrogenase (LDH) 137 120 - 260 U/L 05/17/2025 6:30 AM EDT [facility] Blood Blood specimen / Unknown 05/17/2025 5:09 AM EDT 05/17/2025 6:04 AM EDT us Malvin Boone MD LAB BLOOD ORDERABLES Final Result Performing Organization Address City/State/[facility] Co de Phone Number [address] [address], [address] [address] * THORACENTESIS (05/16/2025 3:58 PM EDT) Anatomical [...] to verify the correct patient, procedure, equipment, sales support administrator and site/side marked as required. Procedure purpose: [...] Sample left with bedside RN. ACCESS: 6 [place]ian Jtke-D-Nalvborx closed needle/catheter system REQUESTING PRACTITIONER: KURT Mitchell [...] adjacent organs or vascular structures. A 6 [place]ian Vtzx-U-Wmvijahy closed needle/catheter system was utilized for access. [...] No organisms seen 05/16/2025 7:33 PM EDT [facility] Culture No aerobes and anaerobes isolated after 7 days 05/23/2025 3:38 PM EDT [facility] ANCILLARY LABORATORY Fluid, Pleural Specimen from pleura obtained by thoracentesis / Unknown 05/16/2025 3:35 PM EDT 05/16/2025 5:52 PM EDT Comment:Fluid, Pleural Malvin Boone MD MICROBIOLOGY - GENERAL ORD ERABLES Final Result Performing Organization Address [facility] Co de Phone Number [facility]CILL[facility] LABORAT[facility] [address] [place] [address], [place] [address] * Protein - Pleural Fluid (05/16/2025 3:35 PM EDT) Source Pleural Cavity, Left 05/16/2025 3:35 PM EDT [facility] Comment:Fluid, Pleural Protein, Body Fluid 2.3 g/dL 05/16/2025 5:40 PM EDT [facility] Comment:The reference interv al(s) and other method performance specifications are unavailable for this body fluid. Comparison of this result with the concentration in the blood, serum, or plasma is recommended. Fluid, Pleural Specimen from pleura obtained by thoracentesis / Unknown 05/16/2025 3:35 PM EDT 05/16/2025 4:33 PM EDT Malvin Boone MD BODY FLUIDS AND STOOLS ORD ERABLES Final Result Performing Organization Address [facility] Co de Phone Number [address] [address], [address] [address] * LDH - Pleural Fluid (05/16/2025 3:35 PM EDT) Source Pleural Cavity, Left 05/16/2025 3:35 PM EDT [facility] Comment:Fluid, Pleural Lactate Dehydrogenase, Body Fluid 51 U/L 05/16/2025 5:40 PM EDT [facility] Comment:The reference interv al(s) and other method performance specifications are unavailable for this body fluid. Comparison of this result with the concentration in the blood, serum, or plasma is recommended. Fluid, Pleural Specimen from pleura obtained by thoracentesis / Unknown 05/16/2025 3:35 PM EDT 05/16/2025 4:33 PM EDT us Malvin Boone MD BODY FLUIDS AND STOOLS ORD ERABLES Final Result Performing Organization Address [facility] Co de Phone Number [address] [address], [address] [address] * Glucose - Pleural Fluid (05/16/2025 3:35 PM EDT) Source Pleural Cavity, Left 05/16/2025 3:35 PM EDT [facility] Comment:Fluid, Pleural Glucose, Body Fluid 84 mg/dL 05/16/2025 5:40 PM EDT [facility] Comment:The reference interv al(s) and other method performance specifications are unavailable for this body fluid. Comparison of this result with the concentration in the blood, serum, or plasma is recommended. Fluid, Pleural Specimen from pleura obtained by thoracentesis / Unknown 05/16/2025 3:35 PM EDT 05/16/2025 4:33 PM EDT us Malvin Boone MD BODY FLUIDS AND STOOLS ORD ERABLES Final Result Performing Organization Address [facility] Co de Phone Number [address] [address], [place] [address] [address] * Cell Count, Reflex Differential, Body Fluid (05/16/2025 3:35 PM EDT) Appearance, Body Fluid Clear 05/16/2025 8:39 PM EDT [facility] Color Yellow 05/16/2025 8:39 PM EDT [facility] Nucleated Cells, Fluid 96 /CUMM 05/16/2025 5:41 PM EDT [facility] Comment:Macroscopic particle s present. Question accuracy of results. RBC, Fluid <2,000 /CUMM 05/16/2025 5:41 PM EDT [facility] Comment:Macroscopic particle s present. Question accuracy of results. Neutrophil, Body Fluid 4 % 05/16/2025 8:39 PM EDT [facility] Lymphoctye, Body Fluid 22 % 05/16/2025 8:39 PM EDT [facility] Monocyte, Body Fluid 38 % 05/16/2025 8:39 PM EDT [facility] Histiocyte, Body Fluid 28 % 05/16/2025 8:39 PM EDT [facility] Mesothelial, Body Fluid 8 % 05/16/2025 8:39 PM T [facility] Smear Comment, Body Fluid The reference interval and other method performance specifications are unavailable for this body fluid. Comparison of the result with concentration in the blood, serum, or plasma is recommended 05/16/2025 8:39 PM [facility] Fluid, Pleural Specimen from pleura obtained by thoracentesis / Unknown 05/16/2025 3:35 PM EDT 05/16/2025 4:33 PM EDT us Malvin Boone MD BODY FLUIDS AND STOOLS ORD ERABLES Final Result [address] [address], [address] [address] * Thrombin Time (05/16/2025 10:00 AM EDT) Only the most recent of5 resultswithin the time period is included. Anticoagulant NO ANTI COAGULANT MEDS 05/16/2025 9:22 AM EDT [facility] Thrombin Time 18.1 12.7 - 19.2 seconds 05/16/2025 10:40 AM EDT [facility] Blood Blood specimen / Unknown 05/16/2025 10:00 AM EDT 05/16/2025 10:12 AM EDT Calvin Lew MD LAB BLOOD ORDERABLES Final Result [address] [address], [address] [address] * EEG < 24 HR W/VIDEO -REDUCED SERVICE (05/15/2025 8:22 AM EDT) Narrative [facility] - 05/15/2025 8:23 AM EDT Laura Chaudhari MD 05/15/2025 1:22 PM ADULT INPATIENT CONTINUOUS VIDEO-EEG MONITORING (LTM) REPORT Facility: [facility] Patient and : Kia Phelps 1960 Date [...] care. MD Olivia Galicia MD ABPN Epilepsy. [facility] Greg Sigala MD NEUROLOGY ORDERABLES Edited Res ult - Final [address] [place] [address], * (ABNORMAL) C-REACTIVE PROTEIN (05/15/2025 5:48 AM EDT) C-Reactive Protein 2.18(H) 0 - 0.49 mg/dL 05/15/2025 10:45 AM EDT [facility] 05/15/2025 5:48 AM EDT 05/15/2025 6:27 AM EDT Calvin Lew MD LAB BLOOD ORDERABLES Final Result Performing Organization Address [facility]/ZIP Co de Phone Number [address] [address], [address] [address] * EEG 24 HOUR WITH VIDEO (05/15/2025 4:45 AM EDT) Narrative [facility] - 05/14/2025 5:24 PM EDT Laura Chaudhari MD 05/14/2025 5:25 PM ADULT INPATIENT CONTINUOUS VIDEO-EEG MONITORING (LTM) REPORT Facility: [facility] Patient and : iKa Phelps 1960 Date of Procedure: 05/14/2025 Admission [...] MD ABPN Epilepsy. [facility] Greg Sigala MD NEUROLOGY ORDERABLES Final Resu lt [facility] [address] [place] [address], * Transfuse RBC's: (05/14/2025 2:19 PM EDT) [...] less than 21% (05/14/2025 6:58 AM EDT) Pathologist [facility] Units Ordered 1 05/14/2025 6:58 AM EDT 05/14/2025 6:58 AM EDT 05/14/2025 7:08 AM EDT Reena Villarreal MD BLOOD BANK PRODUCT ORDER PAT Final Result HOSPITAL LAB See Below * (ABNORMAL) Differential, Automated (For Add-On Orders to CBC ONLY) (05/14/2025 6:20 AM EDT) [facility] Neutrophils Auto 64.9 % 05/14/20 11:34 AM EDT [facility] Immature Granulocytes 0.7 % 05/14/2025 11:34 AM EDT [facility] Lymphocytes Auto 20.3 % 05/14/20 11:34 AM EDT [facility] Monocytes Auto 9.9 % 05/14/2025 11:34 AM EDT [facility] Eosinophils Auto 3.4 % 05/14/20 11:34 AM EDT [facility] Basophils Auto 0.8 % 05/14/2025 11:34 AM EDT [facility] Abs Neutrophils Auto 4.73 2.00 - 7.50 Thou/uL 05/14/2025 11:34 AM EDT [facility] Abs Immature Granulocytes 0.05 0.00 - 0.10 Thou/uL 05/14/2025 11:34 AM EDT [facility] Abs Lymphocytes Auto 1.48(L) 1.50 - 4.50 Thou/uL 05/14/2025 11:34 AM EDT [facility] Abs Monocytes Auto 0.72 0.20 - 1.50 Thou/uL 05/14/2025 11:34 AM EDT [facility] Abs Eosinophils Auto 0.25 0.00 - 0.70 Thou/uL 05/14/2025 11:34 AM EDT [facility] Abs Basophils Auto 0.06 0.00 - 0.20 Thou/uL 05/14/2025 11:34 AM EDT [facility] Blood specimen / Unknown 05/14/2025 6:20 AM EDT 05/14/2025 6:28 AM EDT Calvin Lew MD LAB BLOOD ORDERABLES Final Result Performing Organization Address City/[facility]/[place] [address], [address] [address] * Triglycerides (05/14/2025 6:20 AM EDT) Triglycerides 88 <150 mg/dL 05/14/2025 6:59 AM EDT [facility] Blood Blood specimen / Unknown 05/14/2025 6:20 AM EDT 05/14/2025 6:28 AM EDT Calvin Lew MD LAB BLOOD [place]AB[place] [address], [address] [address] * (ABNORMAL) Ferritin (05/14/2025 6:20 AM EDT) Ferritin 657(H) 30 - 400 ug/L 05/14/2025 6:59 AM EDT [facility] Blood Blood specimen / Unknown 05/14/2025 6:20 AM EDT 05/14/2025 6:28 AM EDT us Calvin Lew MD LAB BLOOD ORDERABLES Final Result Performing Organization Address City/[facility]/ZIP Co de Phone Number [address] [address], [address] [address] * (ABNORMAL) POCT Glucose, Fingerstick (05/13/2025 8:06 PM EDT) Only the most recent of34 resultswithin the time period is included. POC Glucose 102(H) 65 - 99 mg/dL 05/13/2025 8:07 PM EDT Blood specimen / Unknown 05/13/2025 8:06 PM EDT 05/13/2025 8:07 PM EDT Max Young MD POINT OF CARE TEST ORDERABLES F inal Result HOSPITAL LAB See Below * EEG 24 HOUR WITH VIDEO (05/13/2025 7:08 PM EDT) Narrative [facility] - 05/13/2025 1:40 PM EDT Laura Chaudhari MD 05/13/2025 1:41 PM ADULT INPATIENT CONTINUOUS VIDEO-EEG MONITORING (LTM) REPORT Facility: [facility] Patient and : Kia Phelps 1960 Date [...] care. MD Olivia Galicia MD ABPN Epilepsy. [facility] us Greg Sigala MD NEUROLOGY ORDERABLES Final Resu lt [facility] [address] [place] [address], * Transfuse Platelets:Transfusion Indications: Plt count less than or equal to 50K and Pre or Post surgery or invasive procedure (05/13/2025 2:36 PM EDT) us Calvin Lew MD BLOOD TRANSFUSION ORDERABL ES Final Result * Type and Screen (05/13/2025 8:15 AM EDT) ABO/Rh O POSITIVE 05/13/2025 10:21 AM T [facility] Antibody Screen NEGATIVE 05/13/2025 10:21 AM T [facility] Specimen Expiration 05/16/2025 05/13/2025 10:21 AM T [facility] Blood Bank Comment Second Sample needed for Blood Transfusion 05/13/2025 10:21 AM T [facility] Unit Number [id number] 05/14/2025 7:07 AM [facility] Blood Component Type LEUKOREDUCED RED CELLS 05/14/2025 7:07 AM T [facility] Unit Division 00 05/14/2025 7:07 AM [facility] Unit Status ISSUED,FINAL 05/15/2025 12:20 AM [facility] Transfusion Status OK TO TRANSFUSE 05/14/2025 7:07 AM [facility] Crossmatch Result Electronically Compatible 05/14/2025 7:07 AM [facility] Blood Blood specimen / Unknown 05/13/2025 8:15 AM EDT 05/13/2025 9:28 AM EDT Comment:Blood Calvin Lew MD BLOOD BANK TEST ORDERABLES Final Result HOSPITAL LAB See Below [address] [address] * Prepare Platelets:Prepare in: Doses; Number of doses: 1; Transfusion Indications: Plt count less than or equal to 50K and Pre or Post surgery or invasive procedure (05/13/2025 7:32 AM EDT) Units Ordered 1 05/13/2025 7:32 AM EDT Unit Number [id number] 05/13/2025 12:03 PM T [facility] Blood Component Type Apheresis Platelets (7d) Irradiated Leukocytes Reduced - 1st container 05/13/2025 12:03 PM EDT [facility] Unit Division 00 05/13/2025 12:03 PM EDT [facility] Unit Status ISSUED,FINAL 05/14/2025 12:20 AM EDT [facility] Transfusion Status OK TO TRANSFUSE 05/13/2025 12:03 PM EDT [facility] 05/13/2025 7:32 AM EDT 05/13/2025 12:03 PM EDT us Calvin Lew MD BLOOD BANK PRODUCT ORDERAB LES Final Result HOSPITAL LAB See Below [facility] [address] [place] [address] * EEG 24 HOUR WITH VIDEO (05/13/2025 6:31 AM EDT) Narrative [facility] - 05/12/2025 1:41 PM EDT Laura Chaudhari MD 05/12/2025 1:45 PM ADULT INPATIENT CONTINUOUS VIDEO-EEG MONITORING (LTM) REPORT Facility: [facility] Patient and : Kia Phelps 1960 Date [...] care. MD Olivia Galicia MD ABPN Epilepsy. [facility] Greg Sigala MD NEUROLOGY ORDERABLES Final Resu lt Performing Organization Address City/[facility]/ZIP Co de Phone Number [facility] [address] [place] [address], * ABO Confirmation (05/13/2025 4:49 AM EDT) ABO/Rh O POSITIVE 05/13/2025 12:01 PM EDT [facility] Blood specimen / Unknown 05/13/2025 4:49 AM EDT 05/13/2025 10:48 AM EDT Max Young MD BLOOD BANK TEST ORDERABLES Queenie l Result Performing Organization Address [facility] Co de Phone Number [address] [address], [address] [address] * (ABNORMAL) HEPATIC FUNCTION PANEL (05/13/2025 4:49 AM EDT) Only the most recent of2 resultswithin the time period is included. Alkaline Phosphatase 197(H) 32 - 122 U/L 05/13/2025 7:44 AM EDT [facility] Aspartate Aminotrans (AST) 38 10 - 50 U/L 05/13/2025 7:44 AM EDT [facility] Alanine Aminotrans (ALT) 7(L) 10 - 50 U/L 05/13/2025 7:44 AM EDT [facility] Bilirubin, Total 0.6 0.2 - 1.0 mg/dL 05/13/2025 7:44 AM EDT [facility] Protein, Total 5.4(L) 6.3 - 8.3 g/dL 05/13/2025 7:44 AM EDT [facility] Albumin 3.0(L) 3.4 - 4.8 g/dL 05/13/2025 7:44 AM EDT [facility] Bilirubin, Direct 0.4(H) 0 - 0.2 mg/dL 05/13/2025 7:44 AM EDT [facility] Globulin 2.4 1.5 - 3.9 g/dL 05/13/2025 7:44 AM EDT [facility] Albumin/Globulin Ratio 1.3 1.0 - 3.0 Ratio 05/13/2025 7:44 AM EDT [facility] 05/13/2025 4:49 AM EDT 05/13/2025 5:52 AM EDT Calvin Lew MD LAB BLOOD ORDERABLES Final Result [address] [address], [address] [address] * MRI Brain w w/o contrast (05/12/2025 [...] Long-term monitoring (05/11/2025 3:26 PM EDT) Narrative [facility] - 05/11/2025 3:26 PM EDT Laura Chaudhari MD 05/11/2025 3:28 PM ADULT INPATIENT CONTINUOUS VIDEO-EEG MONITORING (LTM) REPORT Facility: [facility] Patient and : Kia Phelps 1960 Date [...] neurologist providing direct patient care. MD Olivia Galicai MD ABPN Epilepsy. [facility] us Greg Sigala MD NEUROLOGY ORDERABLES Final Resu lt [facility] [address] [place] [address], [place] * XR Abdomen 1 view (05/11/2025 [...] in the region of the gastric pylorus. us Jaclyn Hunter MD IMG DIAGNOSTIC IMAGING [facility]IN [facility] Final Result * EEG 24 HOUR WITH VIDEO (05/11/2025 1:39 AM EDT) Narrative [facility] - 05/10/2025 11:31 AM EDT Laura Chaudhari MD 05/10/2025 11:35 AM ADULT INPATIENT CONTINUOUS VIDEO-EEG MONITORING (LTM) REPORT Facility: [facility] Patient and : Kia Phelps 1960 Date [...] care. MD Olivia Galicia MD ABPN Epilepsy. [facility] Greg Sigala MD NEUROLOGY ORDERABLES Final Resu lt [facility] [address] [place] [address], * (ABNORMAL) Transferrin (05/10/2025 8:10 PM EDT) Transferrin 57(L) 200 - 360 mg/dL 05/10/2025 8:41 PM EDT [facility] Blood Blood specimen / Unknown 05/10/2025 8:10 PM EDT 05/10/2025 8:14 PM EDT Jaclyn Hunter MD LAB BLOOD ORDERABLES Final Result Performing Organization Address City/[facility] [place] [address], [place] [address] * FEEDING TUBE PLACEMENT (NASODUODENAL/NASOJEJUNAL) (05/10/2025 1:17 [...] to verify the correct patient, procedure, equipment, sales support administrator and site/side marked as required. Preparation: Patient [...] Anatomical Region Laterality Modality Abdomen Ultrasound 05/10/2025 5:15 AM EDT Impressions 05/11/2025 8:15 PM EDT [...] considered as clinically warranted. Priscilla Subramanian MD IMG US ORDERABLES Final Result * Pathology Smear Review, Whole Blood (05/10/2025 6:20 AM EDT) Pathology Comment Smear review: 05/11/2025 1:30 AM EDT [facility] Comment: Anemia and thrombocytopenia--smear not diagnostic of etiology. Tutor Key cells: consider electrolyte imbalance vs artifact. Junior Dominguez MD ([facility]) Blood specimen / Unknown 05/10/2025 6:20 AM EDT 05/10/2025 6:25 AM EDT us Priscilla Subramanian MD PATHOLOGY/CYTOLOGY ORDERABLES Fi nal Result [address] [address], [address] [address] * EEG 24 HOUR WITH VIDEO (05/10/2025 3:58 AM EDT) Narrative [facility] - 05/09/2025 5:20 AM EDT Olivia Berman MD 05/09/2025 3:23 PM ADULT INPATIENT CONTINUOUS VIDEO-EEG MONITORING (LTM) REPORT Facility: [facility] Patient and : Kia Phelps 1960 Date [...] patient care. Olivia Berman MD ABPN Epilepsy. [facility] us Greg Sigala MD NEUROLOGY ORDERABLES Edited Res ult - Final [facility] [address] [id number], * (ABNORMAL) Prealbumin (05/09/2025 5:45 PM EDT) Prealbumin 6(L) 20 - 40 mg/dL 05/09/2025 7:10 PM EDT [facility] Blood Blood specimen / Unknown 05/09/2025 5:45 PM EDT 05/09/2025 6:07 PM EDT us Priscilla Subramanian MD LAB BLOOD ORDERABLES Final Resul t Performing Organization Address City/[facility]/[place] [address], [address] [address] * (ABNORMAL) Folate Level (05/09/2025 5:45 PM EDT) Folate, Serum 4.6(L) >7.2 ng/mL 05/09/2025 7:24 PM EDT [facility] Blood Blood specimen / Unknown 05/09/2025 5:45 PM EDT 05/09/2025 6:07 PM EDT us Priscilla Subramanian MD LAB BLOOD ORDERABLES Final Resul t Performing Organization Address [facility] [place] [address], [address] [address] * Vitamin B12 (05/09/2025 5:45 PM EDT) Vitamin B12 772 243 - 894 pg/mL 05/09/2025 7:10 PM EDT [facility] Blood Blood specimen / Unknown 05/09/2025 5:45 PM EDT 05/09/2025 6:07 PM EDT us Priscilla Subramanian MD LAB BLOOD ORDERABLES Final Resul t Performing Organization Address City/[facility] [place] [address], [address] [address] * Blood Culture (05/09/2025 10:23 AM EDT) Only the most recent of2 resultswithin the time period is included. Culture Sterile after 5 days 05/14/2025 3:10 PM EDT [facility] Blood Blood specimen / Unknown 05/09/2025 10:23 AM EDT 05/09/2025 11:30 AM EDT Comment:Blood Priscilla Subramanian MD LAB BLOOD ORDERABLES Final Resul t [facility] [address] [place] [address], [place] * Procalcitonin (05/09/2025 10:20 AM EDT) Pathologist [facility] Procalcitonin 0.28 <0.51 ng/mL 05/09/2025 11:37 AM EDT [facility] Comment: New Reference Range for Procalcitonin (NOTE) [...] ORDERABLES Final Resu lt Performing Organization Address [facility] Co de Phone Number [address] [address], [address] [address] * Nasal MRSA Screen, PCR (05/09/2025 10:20 AM EDT) MRSA Result Not Detected Not Detected 5:21 PM EDT [facility] Comment:Performed by the Xpe rt MRSA NxG Assay Swab, Anterior Nares Specimen from nose / Unknown 05/09/2025 10:20 AM EDT 05/09/2025 12:38 PM EDT Dieter Molina MD MICROBIOLOGY - GENERAL ORDERABL ES Final Result Performing Organization Address [facility] de Phone Number [address] [address], [address] [address] * Heparin PF4 Ab Screen Reflex Serotonin Release Assay (05/09/2025 9:10 AM EDT) Heparin PF4 Antibody Negative Negative 05/09/2025 11:20 AM EDT [facility] Comment:Negative Screen, ref destinee testing not indicated. Blood Blood specimen / Unknown 05/09/2025 9:10 AM EDT 05/09/2025 9:34 AM EDT Priscilla Subramanian MD LAB BLOOD ORDERABLES Final Resul t Performing Organization Address [facility] Co de Phone Number [address] [address], [address] [address] * Haptoglobin (05/09/2025 9:10 AM EDT) Haptoglobin 65 30 - 200 mg/dL 05/09/2025 10:09 AM EDT [facility] Blood Blood specimen / Unknown 05/09/2025 9:10 AM EDT 05/09/2025 9:34 AM EDT Priscilla Subramanian MD LAB BLOOD ORDERABLES Final Resul t Performing Organization Address City/[facility]/ZIP Co de Phone Number [address] [address], [address] [address] * (ABNORMAL) proBNP, N-terminal (05/09/2025 3:00 AM EDT) proBNP, N-terminal 41,316(H) <125 pg/mL 05/09/2025 4:11 AM EDT [facility] Blood Blood specimen / Unknown 05/09/2025 3:00 AM EDT 05/09/2025 3:35 AM EDT Max Young MD LAB BLOOD ORDERABLES Final Resu lt Performing Organization Address [facility] Co de Phone Number [address] [address], [address] [address] * CTA Chest for P.E. (05/09/2025 2:26 [...] renal calculi. Interpreted by: Evin Elise MD Layout Worker I personally reviewed the images and the resident's preliminary report and made the MINOR addendum above (RADPAL2). Narrative 05/09/2025 9:47 AM EDT EXAMINATION: CTA OF THE CHEST, ABDOMEN, AND PELVIS WITH AND WITHOUT CONTRAST CLINICAL INFORMATION: 65 years old Female with tachycardia, lactic acidosis COMPARISON: CT abdomen and pelvis 04/23/2025 CT chest 08/18/2016 DESCRIPTION: Initial noncontrast localizing staff air defense officer images were obtained. Timing boluses at the [...] CT chest 08/18/2016 DESCRIPTION: Initial noncontrast localizing staff air defense officer images were obtained. Timing boluses at the [...] renal calculi. Interpreted by: Evin Elise MD Layout Worker I personally reviewed the images and the resident's preliminary report and made the MINOR addendum above (RADPAL2). us Max Young MD IMG CT ORDERABLES Final Result * CTA Abdomen+pelvis [...] renal calculi. Interpreted by: Evin Elise MD Layout Worker I personally reviewed the images and the resident's preliminary report and made the MINOR addendum above (RADPAL2). Narrative 05/09/2025 9:47 AM EDT EXAMINATION: CTA OF THE CHEST, ABDOMEN, AND PELVIS WITH AND WITHOUT CONTRAST CLINICAL INFORMATION: 65 years old Female with tachycardia, lactic acidosis COMPARISON: CT abdomen and pelvis 04/23/2025 CT chest 08/18/2016 DESCRIPTION: Initial noncontrast localizing staff air defense officer images were obtained. Timing boluses at the [...] CT chest 08/18/2016 DESCRIPTION: Initial noncontrast localizing staff air defense officer images were obtained. Timing boluses at the [...] renal calculi. Interpreted by: Evin Elise MD Layout Worker I personally reviewed the images and the resident's preliminary report and made the MINOR addendum above (RADPAL2). Max Young MD IMG CT ORDERABLES Final Result * Prolactin (05/08/2025 11:57 PM EDT) Prolactin 7.6 4.8 - 23.3 ng/mL 05/09/2025 12:38 AM T [facility] Blood Blood specimen / Unknown 05/08/2025 11:57 PM EDT 05/09/2025 12:03 AM EDT Max Young MD LAB BLOOD ORDERABLES Final Resu lt [address] [address], [address] [address] * (ABNORMAL) Blood Gas, Venous (05/08/2025 11:57 PM EDT) Venous Blood PH 7.34 7.33 - 7.43 05/09/2025 12:20 AM EDT [facility] Venous pCO2 30(L) 35 - 50 mmHG 05/09/2025 12:20 AM [facility] Venous pO2 95(H) 0 - 60 mmHG 05/09/2025 12:20 AM T [facility] Venous Total CO2 17(L) 23 - 29 mmol/L 05/09/2025 12:20 AM T [facility] Respiratory Info ROOM AIR 05/08/20 10:32 PM EDT [facility] Base Deficiency 8.6 mmol/L 12:20 AM T [facility] Comment:Reference Range: Neg ative 2 to Positive 3 Blood Blood specimen / Unknown 05/08/2025 11:57 PM EDT 05/09/2025 12:02 AM EDT Max Young MD LAB BLOOD ORDERABLES Final Resu lt Performing Organization Address [facility] Co de Phone Number [address] [place] [address], [address] [address] * CT Head Archive for Reference Only (05/08/2025 6:58 PM EDT) Only the most recent of3 resultswithin the time period is included. Narrative [place] - 05/08/2025 6:58 PM EDT This study has been auto finalized and does not contain a result. File Room Provider IMG DIGITIZE FILMS Final Resu lt Performing Organization Address [facility] Co de Phone Number NITIN [phone] * MR Head Archive for Reference Only (05/08/2025 6:57 PM EDT) Narrative [place] - 05/08/2025 6:57 PM EDT This study has been auto finalized and does not contain a result. File Room Provider IMG DIGITIZE FILMS Final Resu lt Performing Organization Address [facility] Co de Phone Number NITIN [phone] from Last 3 Months Insurance [employer] MGD MEDICARE Advance Directives * Full Code (Latest Code Status on File) Date Activated Date Inactivated Comments 05/21/2025 11:21 AM * Full Code Date Activated Date Inactivated Comments 05/08/2025 10:02 PM 05/21/2025 11:21 AM Healthcare Agents on File Name Relationship Healthcare Agent Relationshi p Communication Geovanna Vasquez Adult child 1. Health Care Represe ntative Care Teams Psychologist Experimental Relationship Specialty Start Date End Date Joi Rebollar MD [address] [place] [id number] PCP - General Internal Medicine 05/08/25
--- OUTSIDE RECORDS SUMMARY | 2025-06-26 12:20 | XMS_ITS | Encounter Summary ---
Author Organization [facility] Address [address] [place] [address] Phone Care Team Providers Care Physician President Name Role Phone Deion Asencio MD Primary Care Provider + Nessa Hillman NP Primary Care Provider [phone] Lupillo Sinclair MD Unavailable [phone] Encounter Details Date Type Department Care Team (Late st Contact Info) Description 07/26/2023 Procedure [facility] [place] [address] Social History Tobacco Use Types [...] documented as of this encounter Care Teams Physician President Relationship Specialty Start Date End Date Deion Asencio MD [address] [place] [address] PCP - General Family Medicine 06/08/18 06/02/24 Nessa Hillman NP [address] [place] [address] PCP - General Nurse Practitioner 06/03/24 Lupillo Sinclair MD [address] [place] [address] Cardiology 12/24/24 documented as of this encounter Additional Source Comments The information contained in this document represents components of the legal health record. It is not the complete legal health record.[facility]
--- OUTSIDE RECORDS SUMMARY | 2025-06-26 12:20 | XMS_ITS | Encounter Summary ---
Author Organization [facility] Address [address] [place] [address] Phone Care Team Providers Care Parcel Carrier Name Role Phone Nessa Hillman NP Primary Care Provider [phone] Lupillo Sinclair MD Unavailable [phone] Encounter Details Date Type Department Care Team (Late st Contact Info) Description 06/12/[address] - [address], [address] [place] [id number] Social History Tobacco Use Types Packs/Day Years [...] documented as of this encounter Care Teams Parcel Carrier Relationship Specialty Start Date End Date Nessa Hillman NP [address] [place] [address] PCP - General Nurse Practitioner 06/03/24 Lupillo Sinclair MD [address] [place] [address] Cardiology 12/24/24 documented as of this encounter Additional Source Comments The information contained in this document represents components of the legal health record. It is not the complete legal health record.[facility]
== END 2025-06-26 10:55 | disposition home or self-care (01) ==
LOC: HO.HGS 10:21
PROVIDERS: PCP Internal Medicine; Visit Provider Surgery
DX: T85.518A Breakdown (mechanical) of other gastrointestinal prosthetic devices, implants and grafts, initial encounter (principal)
CPT/HCPCS: 99213

== ENCOUNTER → 2025-06-26 10:20 | Outpatient (BNVA) | payer MEDICARE, SELFPAY | PROVIDERS: PCP Internal Medicine; Visit Provider Surgery | DX: T85.518A Breakdown (mechanical) of other gastrointestinal prosthetic devices, implants and grafts, initial encounter (principal) | CPT/HCPCS: 99212 ==

== ENCOUNTER 2025-07-04 09:49 | Outpatient (AMB) | payer MEDICARE, SELFPAY ==
--- OUTSIDE RECORDS SUMMARY | 2025-07-03 23:59 | XMS_ITS | Continuity of Care Document ---
Author Organization [facility]ana [facility] Address [address] [place] [address]- Care Team Providers Care Executive Communications Manager Name Role Phone Not on Staff, PCP Primary Care Physician Unavail able En[place] [facility] [place] 06/03/25 - 07/03/25 [facility] Adult [address] [place] [address]- Attending Physician: AdmHunter cornejo Admitting Physician: AdmtrHunter Referring Physician: Admtr [id number] Encounter Type: Triage Allergies, Adverse Reactions, Alerts Substance Criticality Severity Reaction Reaction Severity Status ibuprofen gi issues Active erythromycin anaphyaxis Active sulfamethoxazole Anaphylaxis , due to adverse effect of correct medicinal substance properly administered Active aspirin gi issues Active melatonin 1 Active iodinated radiocontrast dyes heart races Active shellfish mussels, clams and oysters only anaphylaxis Active Augmentin 2 vom Active nonsteroidal anti-inflammatory agents gi issues Active salicylic acid-sulfur topical - cream allergy is to sulfa Activ e Pollen Active traZODone 3 Active 1nausea & shakiness 2per patient, OK with Amoxicillin and Penicillin, NOT Augmentin. 3QT prolongation Immunizations Given and Recorded Vaccine Date Status Refusal Reason zoster vaccine, inactivated 09/14/24 Recorded zoster vaccine, inactivated 06/30/24 Recorded SARS-CoV-2(COVID-19)mRNA-LNP vac([id number]) 06/30/24 Recorded RSV vaccine preF3, recombinant 06/01/24 Recorded influenza virus vaccine, inactivated 06/01/24 Simon rded influenza virus vaccine, inactivated 06/06/23 Simon rded influenza virus vaccine, inactivated 06/28/22 Simon rded influenza virus vaccine, inactivated 05/30/21 Simon rded influenza virus vaccine, inactivated 06/08/20 Simon rded influenza virus vaccine, inactivated 06/01/19 Simon rded influenza virus vaccine, inactivated 1 06/10/18 Re corded influenza virus vaccine, inactivated 06/03/17 Simon rded influenza virus vaccine, inactivated 2 07/05/16 Re corded influenza virus vaccine, inactivated 06/23/16 Simon rded influenza virus vaccine, inactivated 06/23/15 Simon rded [id number] 12y+ bivalent booster vax 10/01/22 Recorded SARS-CoV-2 (COVID-19) mRNA BNT-162b2 vac 07/10/21 Recorded SARS-CoV-2 (COVID-19) mRNA BNT-162b2 vac 11/04/20 Recorded SARS-CoV-2 (COVID-19) mRNA BNT-162b2 vac 10/14/20 Recorded tetanus/diphtheria/pertussis, acel(Tdap) 05/23/14 Recorded hepatitis B adult vaccine 10/02/09 Recorded hepatitis B adult vaccine 06/03/09 Recorded hepatitis B adult vaccine 04/27/09 Recorded 1Location History: [facility] 2Result Comment: [facility]07[facility]18/2016[facility] Medications acetaminophen 325 mg oral tablet 650 mg, By Mouth, Every 6 hours, PRN, Refills 0, Maintenance, Pain , Mild, 06/02/23 3:00:00 PM EDT, Partial fill upon patient request if the prescription is for a schedule II opioid drug. Start Date: 06/02/23 Status: Ordered Medication Dispense Status: Completed Total Allowed Fills: 1 Fills Dispensed: 0 adhesive remover wipes adhesive remover wipes, See Instructions, # 100 each, Refills 6, Tot. Refills 6, Maintenance, adhesive remover wipes dx: ileostomy, 12/20/23 9:01:00 AM EDT, Supply Start Date: 12/20/23 Status: Ordered Medication Dispense Status: Completed Quantity: 100.0 Unit: each Total Allowed Fills: 7 Fills Dispensed: 0 atorvastatin 80 mg oral tablet 1 tablet = 80 mg, By Mouth, Daily, # 90 tablet, 2 Refills, Maintenance, 07/10/23 1:14:00 PM EST, Tablet, [facility]/pharmacy #[id number], Partial fill upon patient request if the prescription is for a schedule II opioid drug., 157, cm, 07/10/23 12:39:00 EST, Height, 62, kg, 06/27/23 14:06:00 EDT, Dry Weight Start Date: 07/10/23 Stop Date: 04/05/24 Status: Ordered Medication Dispense Status: Completed Quantity: 90.0 Unit: tablet Total Allowed Fills: 3 Fills Dispensed: 0 carisoprodol 350 mg oral tablet 1 tablet = 350 mg, By Mouth, Daily at bedtime, # 30 tablet, 5 Refills, Maintenance, 07/23/24 9:11:00 AM EST, [facility], ok to pay lawrence for medication, 157, cm, 05/13/24 13:53:00 EDT, Height, 62, kg, 06/27/23 14:06:00 EDT, Dry Weight Start Date: 07/23/24 Stop Date: 01/19/25 Status: Ordered Medication Dispense Status: Completed Quantity: 30.0 Unit: tablet Total Allowed Fills: 6 Fills Dispensed: 0 carvedilol 6.25 mg oral tablet 6.25 mg, 1, tablet, By Mouth, 2 times a day, # 60 tablet, Refills 0, Maintenance, 10/01/24 7:07:00 AM EST, Partial fill upon patient request if the prescription is for a schedule II opioid drug. Start Date: 10/01/24 Status: Ordered Medication Dispense Status: Completed Quantity: 60.0 Unit: tablet Total Allowed Fills: 1 Fills Dispensed: 0 Citracal 250 mg + D 1 tablet, By Mouth, Daily at bedtime, 0 Refills, Maintenance, 07/18/16 9:47:44 AM EST Start Date: 07/18/16 Status: Ordered Medication Dispense Status: Completed Total Allowed Fills: 1 Fills Dispensed: 0 Coloplast Brava Elastic Barrier Strips #[id number] Coloplast Brava Elastic Barrier Strips #[id number], See Instructions, # 3 pack/packet, Refills 11, Tot.Refills 11, Maintenance, Coloplast Brava Elastic Barrier Strips #[id number] dispense = 3 boxes Z93.3, 07/04/23 1:06:00 PM EDT, Coloplast Brava Elastic Barrier Strips #[id number]; dispense = 3 boxes; Z93.3; mail to her home please, Supply Start Date: 07/04/23 Status: Ordered Medication Dispense Status: Completed Quantity: 3.0 Unit: pack/packet Total Allowed Fills: 12 Fills Dispensed: 0 Coloplast Convex Pouch #19810 Coloplast Convex Pouch #26152, See Instructions, # 60 each, Refills 11, Tot. Refills 11, Maintenance, Coloplast Convex Pouch #75680 DX code Z93.3 change pouch 2 x a day, 08/04/23 8:28:00 AM EST, please mail to patient, Supply Start Date: 08/04/23 Status: Ordered Medication Dispense Status: Completed Quantity: 60.0 Unit: each Total Allowed Fills: 12 Fills Dispensed: 0 Coloplast Ostomy Belt #4237 Coloplast Ostomy Belt #4237, See Instructions, # 2 each, Refills 11, Tot. Refills 11, Maintenance, Coloplast Ostomy Belt #4237 dispense =2 Z93.3, 07/04/23 1:06:00 PM EDT, please mail to home, Supply Start Date: 07/04/23 Status: Ordered Medication Dispense Status: Completed Quantity: 2.0 Unit: each Total Allowed Fills: 12 Fills Dispensed: 0 Convatec Martina Ring # [id number] Convatec Martina Ring # [id number], See Instructions, # 3 pack/packet, Refills 11, Tot. Refills 11, Maintenance, Convatec Martina Ring # 873012 Z93.3 dispense 3 boxes, 07/04/23 1:07:00 PM EDT, Convatec EakinRing # [id number]; Z93.3; dispense 3 boxes; please mail to home, Supply Start Date: 07/04/23 Status: Ordered Medication Dispense Status: Completed Quantity: 3.0 Unit: pack/packet Total Allowed Fills: 12 Fills Dispensed: 0 Duoderm bordered dressing 4 x 4 Duoderm bordered dressing 4 x 4, See Instructions, # 3 pack/packet, Refills 11, Tot. Refills 11, Maintenance, Duoderm, dispense 3 boxes Diagnosis: T81.31XA Midline surgical dehiscence wound care [id number] # invoice number abraham fax [phone], 07/07/23 11:29:00 AM EDT, Supply Start Date: 07/07/23 Status: Ordered Medication Dispense Status: Completed Quantity: 3.0 Unit: pack/packet Total Allowed Fills: 12 Fills Dispensed: 0 Flonase 50 mcg/inh nasal spray 1 sprays, Nares, Both, Daily in AM, # 16 Gm, 3 Refills, Maintenance, 01/22/19 9:01:57 AM EDT, [place],[facility]/pharmacy #[id number], 1 sprays Nares, Both Daily in AM,x30 days Start Date: 01/22/19 Stop Date: 05/22/19 Status: Ordered Medication Dispense Status: Completed Quantity: 16.0 Unit: g Total Allowed Fills: 4 Fills Dispensed: 0 Gauze Pad (4 X 4) See Instructions, # 100 each, Refills 11, Tot. Refills 11, Maintenance, 4 X 4 gauze sponge nonsterile Diagnosis: T81.31XA Midline surgical dehiscence wound care [id number] # invoice number abraham fax [phone], 07/07/23 11:27:00 AM EDT, mail to patients home, Supply Start Date: 07/07/23 Status: Ordered Medication Dispense Status: Completed Quantity: 100.0 Unit: each Total Allowed Fills: 12 Fills Dispensed: 0 magnesium glycinate 100 mg oral capsule 4 capsule = 400 mg, By Mouth, Daily, # 120 capsule, 6 Refills, Maintenance, 10/01/24 7:07:00 AM EST,[facility], Partial fill upon patient request if the prescription is for a schedule II opioid drug., 157, cm, 10/01/24 6:49:00 EST, Height, 62, kg, 06/27/23 14:06:00 EDT, Dry Weight Start Date: 10/01/24 Stop Date: 04/29/25 Status: Ordered Medication Dispense Status: Completed Quantity: 120.0 Unit: capsule Total Allowed Fills: 7 Fills Dispensed: 0 mirtazapine 15 mg oral tablet 1 tablet, By Mouth, Daily at bedtime, # 90 tablet, 1 Refills, Maintenance, 10/01/24 7:07:00 AM EST, [facility], 157, cm, 10/01/24 6:49:00 EST, Height, 62, kg, 06/27/23 14:06:00 EDT, Dry Weight Start Date: 10/01/24 Status: Ordered Medication Dispense Status: Completed Quantity: 90.0 Unit: tablet Total Allowed Fills: 2 Fills Dispensed: 0 Nexium 20 mg oral enteric coated capsule 1 capsule = 20 mg, By Mouth, Daily, Capsules only, no tablet d/t inability to digest tablets, # 30 capsule, 7 Refills, Maintenance, 07/29/24 10:53:00 AM EST, EC Capsule, [facility], Partial fill upon patient request if the prescription is for a schedule II opioid drug., 157, cm, 05/13/24 13:53:00 EDT, Height, 62, kg, 06/27/23 14:06:00 EDT, Dry Weight Start Date: 07/29/24 Stop Date: 03/26/25 Status: Ordered Medication Dispense Status: Completed Quantity: 30.0 Unit: capsule Total Allowed Fills: 8 Fills Dispensed: 0 potassium chloride 10 mEq oral capsule, extended release 1 capsule, By Mouth, 2 times a day, # 180 capsule, 0 Refills, Maintenance, 03/27/24 12:32:00 PM EDT,[facility], 157, cm, 03/27/24 12:07:00 EDT, Height, 62, kg, 06/27/23 14:06:00 EDT,Dry Weight Start Date: 03/27/24 Status: Ordered Medication Dispense Status: Completed Quantity: 180.0 Unit: capsule Total Allowed Fills: 1 Fills Dispensed: 0 Saline [place] Bottles Saline [place] Bottles, See Instructions, # 10 each, Refills 11, Tot. Refills 11, Maintenance, NormalSaline [place] Diagnosis: T81.31XA Midline surgical dehiscence wound care, 07/07/23 11:27:00 AM EDT, mail to home, Supply Start Date: 07/07/23 Status: Ordered Medication Dispense Status: Completed Quantity: 10.0 Unit: each Total Allowed Fills: 12 Fills Dispensed: 0 skin barrier wipes skin barrier wipes, See Instructions, # 100 each, Refills 6, Tot. Refills 6, Maintenance, skin barrier wipes, [id number] dx: ileostomy, 12/20/23 9:03:00 AM EDT, Supply Start Date: 12/20/23 Status: Ordered Medication Dispense Status: Completed Quantity: 100.0 Unit: each Total Allowed Fills: 7 Fills Dispensed: 0 Tape (1 -Paper) See Instructions, # 5 each, Maintenance, paper tape Diagnosis: T81.31XA [facility], 07/04/23 1:11:00 PM EDT, mail to home, Supply Start Date: 07/04/23 Status: Ordered Medication Dispense Status: Completed Quantity: 5.0 Unit: each Total Allowed Fills: 1 Fills Dispensed: 0 Problem List Condition Confirmation Course Effective Dates Status H ealth Status Informant Anxiety Confirmed Active Chronic hypokalemia Confirmed Active Diverticulosis Confirmed Active GERD (gastroesophageal reflux disease) Confirmed Active Hx of chronic pancreatitis Confirmed Active Hyperlipidemia Confirmed Active Hypertension Confirmed Active Ileostomy present Confirmed Active 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 Migraine Confirmed Active Non-ST elevation [place] (NSTEMI) Confirmed Active Osteopenia Confirmed Active Colon polyps Confirmed Active QT prolongation Confirmed Active Tobacco abuse Confirmed Active Fibroid uterus Confirmed Active Social History Social History Type Response Smoking Status Former smoker, quit more than 30 days ago; Other: quit in April; entered on: 06/27/23 Sex Sex Representation Female (finding) Goals Able to Engage in Self-Management Strategies Sta rt Date:04/10/24 End Date: Status:Met Progression:Not Met Blood Pressure Maintained Wi thin Provider-Specified Range Start Date:01/18/24 End Date: Status:Met Progression:Not Met Pt will sleep 4-6 hours minimum Start Date: End Date: Status:Met Progression:Met Hospital Consult note * Event Display: Inpatient Consult Note, Non-BH Authored Date: * Event Display: Inpatient Consult Note, Non-BH Authored Date: * Event Display: Inpatient Consult Note, Non-BH Authored Date: Procedure * Event Display: Cardiology Office Note, Non-BH Authored Date: * Event Display: EKG Non BH Authored Date: * Event Display: Holter Monitor Non BH Authored Date: * Event Display: Non BH Cardiovascular Results Authored Date: Laboratory * Event Display: Non BH Lab Results Authored Date: * Event Display: Laboratory Result Scanned Authored Date: * Event Display: Laboratory Result Scanned Authored Date: Cardiology Consult note * Event Display: Consult Note Cardiology Authored Date: * Event Display: Consult Note Cardiology Authored Date: * Event Display: Consult Note Cardiology Authored Date: Imaging * Event Display: IR Special Procedures Authored Date: * Event Display: IR Special Procedures Authored Date: * Event Display: IR Special Procedures Authored Date: * Event Display: IR Special Procedures Authored Date: * Event Display: X-Ray Chest, Non- BH Authored Date: * Event Display: X-Ray Chest, Non- BH Authored Date: * Event Display: NM Nuclear Medicine, Non-BH Authored Date: * Event Display: Ultrasound Abdomen, Non-BH Authored Date: * Event Display: Ultrasound Renal, Non BH Authored Date: * Event Display: Ultrasound Lower Extremity, Non-BH Authored Date: * Event Display: X-Ray Hip/Groin, Non- BH Authored Date: * Event Display: Bone Density, Non-BH Authored Date: * Event Display: X-Ray Chest, Non- BH Authored Date: MG Breast Views * Event Display: MM Mammogram, Non- BH Authored Date: Patient Care team information Care Team Personnel Name: Miryam Curtis Position: S RN Supv Member Role: Primary Care Nurse Name: Jerod Vee RN Position: [facility] RN Member Role: Primary Care Nurse Name: Keturah Fitzgerald RN Position: [facility] RN Member Role: Primary Care Nurse Name: Eduarda Mosley RN Position: [facility] RN Member Role: Primary Care Nurse Name: Teresa Conrad RN Position: [facility] RN Member Role: Primary Care Nurse Name: Heidi Gomez RN Position: [facility] RN Supv Member Role: Primary Care Nurse Name: Leia Benson RN Position: [facility] RN Member Role: Primary Care Nurse Name: Marcos ([facility]) Selena Position: [facility] taper printed circuit layout Member Role: Cook House Laborer Name: Not on Staff, PCP Position: [facility] Physician (General Medicine) Member Role: PCP Care Team Related Persons Name: JIMBO DINH Name: JUVE MARTINEZ Name: DUC SUTTON Insurance Providers Guarantor name: ROSMERY SUTTON Health Plan Information #: 1 Payer: [employer] MED[employer]ARE ADV PPO Payer Identifier: LEONARDO Member Number: [id number] Group Number: NA Subscriber Identifier: NA Relationship to Subscriber: self Coverage Type: Medicare PPO Coverage Verification Date: Telecom: NA Address:
--- OUTSIDE RECORDS SUMMARY | 2025-07-03 23:59 | XMS_ITS | Continuity of Care Document ---
Author Organization [facility] Address [address] [place] [address]- Care Team Providers Care Pelt Dropper Name Role Phone Not on Staff, PCP Primary Care Physician Unavail able Encounter [facility] [place] Date(s): 03/05/25 - 07/03/25 [facility] Adult [address] [place] [address]- Attending Physician: Rafy PULIDO, Nessa Das Encounter Type: Pre Office Visit Allergies, Adverse Reactions, Alerts Substance Criticality Severity [...] Recorded zoster vaccine, inactivated 06/30/24 Recorded SARS-CoV-2(COVID-19)mRNA-LNP vac([id number]) 06/30/24 Recorded RSV vaccine preF3, recombinant 06/01/24 [...] influenza virus vaccine, inactivated 06/23/15 Simon rded [id number] 12y+ bivalent booster vax 10/01/22 Recorded SARS-CoV-2 (COVID-19) mRNA BNT-162b2 vac 07/10/21 Recorded SARS-CoV-2 (COVID-19) mRNA BNT-162b2 vac 11/04/20 Recorded SARS-CoV-2 (COVID-19) mRNA BNT-162b2 vac 10/14/20 Recorded tetanus/diphtheria/pertussis, acel(Tdap) 05/23/14 Recorded hepatitis B adult vaccine 10/02/09 Recorded hepatitis B adult vaccine 06/03/09 Recorded hepatitis B adult vaccine 04/27/09 Recorded 1Location History: [facility]Result Comment: [facility]07[facility]18/2016] [facility] Medications acetaminophen [...] Refills, Maintenance, 07/10/23 1:14:00 PM EST, Tablet, [facility]/pharmacy #[id number], Partial fill upon patient request if the [...] Dispensed: 0 Coloplast Brava Elastic Barrier Strips #157394 Coloplast Brava Elastic Barrier Strips #584851, See Instructions, # 3 pack/packet, Refills 11, Tot.Refills 11, Maintenance, Coloplast Brava Elastic Barrier Strips #[id number] dispense = 3 boxes Z93.3, 07/04/23 1:06:00 PM EDT, Coloplast Brava Elastic Barrier Strips #233860; dispense = 3 boxes; Z93.3; mail to her home please, Supply Start Date: 07/04/23 Status: Ordered Medication Dispense Status: Completed Quantity: 3.0 Unit: pack/packet Total Allowed Fills: 12 Fills Dispensed: 0 Coloplast Convex Pouch #95281 Coloplast Convex Pouch #53596, See Instructions, # 60 each, Refills 11, Tot. Refills 11, Maintenance, Coloplast Convex Pouch #91892 DX code Z93.3 change pouch 2 x [...] Fills Dispensed: 0 Convatec Martina Ring # [id number] Convatec Martina Ring # 115887, See Instructions, # 3 pack/packet, Refills 11, Tot. Refills 11, Maintenance, Convatec Martina Ring # 605891 Z93.3 dispense 3 boxes, 07/04/23 1:07:00 PM EDT, Convatec EakinRing # 223991; Z93.3; dispense 3 boxes; please mail to home, Supply Start Date: 07/04/23 Status: Ordered Medication Dispense Status: Completed Quantity: 3.0 Unit: pack/packet Total Allowed Fills: 12 Fills Dispensed: 0 Duoderm bordered dressing 4 x 4 Duoderm bordered dressing 4 x 4, See Instructions, # 3 pack/packet, Refills 11, Tot. Refills 11, Maintenance, Duoderm, dispense 3 boxes Diagnosis: T81.31XA Midline surgical dehiscence wound care [id number] # invoice number abraham fax [id number], 07/07/23 11:29:00 AM EDT, Supply Start Date: 07/07/23 Status: Ordered Medication Dispense Status: Completed Quantity: 3.0 Unit: pack/packet Total Allowed Fills: 12 Fills Dispensed: 0 Flonase 50 mcg/inh nasal spray 1 sprays, Nares, Both, Daily in AM, # 16 Gm, 3 Refills, Maintenance, 01/22/19 9:01:57 AM EDT, [id number], 1 sprays Nares, Both Daily in AM,x30 days Start Date: 01/22/19 Stop Date: 05/22/19 Status: Ordered Medication Dispense Status: Completed Quantity: 16.0 Unit: g Total Allowed Fills: 4 Fills Dispensed: 0 Gauze Pad (4 X 4) See Instructions, # 100 each, Refills 11, Tot. Refills 11, Maintenance, 4 X 4 gauze sponge nonsterile Diagnosis: T81.31XA Midline surgical dehiscence wound care [id number] # invoice number abraham fax [id number], 07/07/23 11:27:00 AM EDT, mail to patients home, Supply Start Date: 07/07/23 Status: Ordered Medication Dispense Status: Completed Quantity: 100.0 Unit: each Total Allowed Fills: 12 Fills Dispensed: 0 magnesium glycinate 100 mg oral capsule 4 capsule = 400 mg, By Mouth, Daily, # 120 capsule, 6 Refills, Maintenance, 10/01/24 7:07:00 AM EST,[facility], Partial fill upon patient request [...] Maintenance, 10/01/24 7:07:00 AM EST, [facility], 157, cm, 10/01/24 6:49:00 EST, [...] Allowed Fills: 1 Fills Dispensed: 0 Saline [place] Bottles Saline [place] Bottles, See Instructions, # 10 each, Refills 11, Tot. Refills 11, Maintenance, NormalSaline [place] Diagnosis: T81.31XA Midline surgical dehiscence wound care, [...] Maintenance, paper tape Diagnosis: T81.31XA [facility], 07/04/23 1:11:00 PM EDT, mail to [...] Confirmed Active Migraine Confirmed Active Non-ST elevation [place] (NSTEMI) Confirmed Active Osteopenia Confirmed Active Colon [...] minimum Start Date: End Date: Status:Met Progression:Met Patient Care team information Care Team Personnel Name: Miryam Curtis Position: [facility] RN Supv Member Role: Primary Care Nurse Name: Jerod Vee RN Position: [facility] RN Member Role: Primary Care Nurse Name: Keturah Fitzgerald RN Position: [facility] RN Member Role: Primary Care Nurse Name: Eduarda Mosley RN Position: [facility] RN Member Role: Primary Care Nurse Name: Teresa Conrad RN Position: [facility] RN Member Role: Primary Care Nurse Name: Heidi Gomez RN Position: [facility] RN Supv Member Role: Primary Care Nurse Name: Leia Benson RN Position: [facility] RN Member Role: Primary Care Nurse Name: Marcos ([facility]) , Selena Position: [facility] internal carver Member Role: Track Car Operator Name: Not on Staff, PCP Position: [facility] Physician (General Medicine) Member Role: PCP Care Team Related Persons Name: JIMBO DINH Name: JUVE MARTINEZ Name: DUC SUTTON Insurance Providers Guarantor name: ROSMERY SUTTON Health Plan Information #: 1 Payer: [facility] MEDICARE ADV PPO Payer Identifier: Member Number: [id number] Group Number: [id number] Subscriber Identifier: [id number] Relationship to Subscriber: self Coverage Type: Medicare PPO Coverage Verification Date: Telecom: NA Address: NA
--- NOTE | 2025-07-04 09:57 | A.OFFVIS_ITS ---
Vital Signs 07/04/25 10:04 Height 5 ft 2 in Weight 102 lb BMI 18.7 BP 94/66 Blood Pressure Location Rt brachial Position Sitting Pulse 90 Pulse Source Pulse Oximeter Pulse Oximetry (%) 99 Oxygen Delivery Method Room Air Intake Visit Reasons: Chronic pancreatitis + GERD mgmt. Intake Note: Est pt for mgmt of chronic pancreatitis and GERD. CC; C.O. recent hospitalization x3-4 mos. Pt reports she has new placement of permanent ileostomy per colon resection in [place]. Pt has lost a significant amount of weight recently as a result of recent events. Paid Search Specialist Required: No Accompanied by: Friend Allergies clams Allergy (Severe, Verified 07/04/25 10:02) Stomach Upset clavulanic acid (Augmentin) Allergy (Unknown, Verified 07/04/25 10:02) GI, Difficulty breathing codeine (CODEINE) Allergy (Unknown, Verified 07/04/25 10:02) SENSITIVITY erythromycin base (Erythromycin Base) Allergy (Unknown, Verified 07/04/25 10:02) GI, DIFF BREATHING Sulfa (Sulfonamide Antibiotics) Allergy (Unknown, Verified 07/04/25 10:02) RASH morphine (MORPHINE) Adverse Reaction (Severe, Verified 07/04/25 10:02) Difficulty Breathing aspirin (Aspirin) Adverse Reaction (Mild, Verified 07/04/25 10:02) STOMACH UPSET melatonin Adverse Reaction (Verified 07/04/25 10:02) Vomiting HPI HPI Chronic pancreatitis + GERD mgmt.: Details: LAST VISIT: Ileostomy in place Status post colostomy, follow-up exam Colovesical fistula Irritable bowel syndrome with constipation Diverticulosis Plan Patient will continue followups with her surgeon. Upper endoscopy and colonoscopy were discussed with patient. No Barretts found. Patient can continue lower dose Nexium. Script for 20 mg daily given to patient. Continue with her diet and encouraged patient to drink plenty fluids. Patient will call our office when she will decide when she will have her surgery. Patient will reach out sooner if she will have any GI concerning symptoms. She is agreeable to this plan and verbalizes understanding of instructions. She was given the opportunity to ask questions and all questions answered. ? Thank you for allowing me to participate in her care New esomeprazole magnesium (Nexium 24HR) 20 mg PO DAILY 30 tabs 4R TODAY'S VISIT: Patient is here today for follow-up. Patient had hernia surgery in [place] earlier this year. After surgery patient started developing abscesses was admitted to the hospital. Patient spent about 4 months in the hospital [facility] and [facility]. Mainly patient was treated with heavy doses of antibiotics to treat abscesses that developed after her surgeries. Patient reports that her cholecystectomy drain was no longer draining and fell off. Patient has seen general surgery last week and the anchoring stitch was removed by Dr. Ruvalcaba. Patient reports that ileostomy is draining well. Possible another hernia forming close to ileostomy. Patient reports that she was told that nobody will perform a surgery. Patient has another wound that is being packed on her abdomen and she sees wound care for this. [facility] Medical History (Updated 07/08/25 @ 12:58 by Joi Rebollar MD) Nonhealing nonsurgical wound Cholecystostomy tube dysfunction Paroxysmal atrial fibrillation Generalized weakness History of diverticulosis Chronic pancreatitis Hypomagnesemia CAD (coronary artery disease) Atrial flutter History of sigmoidoscopy Multinodular thyroid Chronic vomiting Hypocalcemia Iron deficiency anemia Hyponatremia Acute cholecystitis History of acute cholecystitis History of pancreatitis Pancreatitis Insomnia Bilateral knee pain Polyarthralgia MARKIE (acute kidney injury) Back pain Arthritis History of transfusion of packed red blood cells Anemia Cardiomyopathy MARKIE (acute kidney injury) MARKIE (acute kidney injury) Anxiety Small bowel obstruction Myocardial infarction NSTEMI (non-ST elevated myocardial infarction) NSVT (nonsustained ventricular tachycardia) PVC (premature ventricular contraction) Hypertension Perforated diverticulum Irritable bowel syndrome with constipation Barretts esophagus GERD (gastroesophageal reflux disease) Surgical History Umbilical hernia H/O ileostomy History of insertion of tunneled central venous catheter (CVC) with port H/O insertion of cholecystostomy tube Status post embolization of uterine artery S/P colon resection PIC line (peripherally inserted central catheter) removal History of low anterior resection of rectum Status post cardiac catheterization H/O dilation and curettage History of exploratory laparotomy (05/11/23) S/P colostomy Colovesical fistula History of esophagogastroduodenoscopy (EGD) Hx of colonoscopy Family History Father Colon cancer Congestive heart failure Paternal Aunt Colon cancer Mother Congestive heart failure Afib Social History Household Members: None Housing: House Are you a primary physician locums urgent care to a significant other at home: No Do you presently have visiting nurse or other home services: Yes Alcohol intake: never Comment: Pt refusing bed alarm Patient Tobacco Use Status: Former Tobacco user Tobacco use type: Cigarette Cigarette Packs Per Day: 0.5 Cigarettes Per Day: 10.0 Years Smoked: 25 e-Cigarette/Vaping Use: Former Use Second Hand Smoke Exposure: No Substance Use Type: Marijuana Advance Directives Date on File: 12/29/23 service: No Cognitive needs: No Hearing needs: No Vision needs: Yes Review of Systems Const Denies weight gain and Denies weight loss ENT Reports no additional complaints, Denies dysphagia and Denies odynophagia Card Reports no additional complaints Resp Reports no additional complaints GI Denies abdominal pain, Denies belching, Denies melena, Reports bloating, Denies change in bowel habits, Denies dysphagia, Denies excessive flatus, Denies dyspepsia, Denies heartburn, Denies diarrhea, Reports loose stools, Denies nausea, Denies odynophagia and Denies vomiting Reports no additional complaints Musc Reports no additional complaints Neuro Reports no additional complaints Psych Reports no additional complaints Endo Reports no additional complaints Physical Exam Vital Signs: Last Vital Signs Pulse 90 07/04/25 10:04 BP 94/66 07/04/25 10:04 Pulse Ox 99 07/04/25 10:04 Oxygen Delivery Method Room Air 07/04/25 10:04 BMI result Body Mass Index 18.7 Const Other: On wheelchair but looks well General: comfortable and no acute distress Resp Effort & Inspection: normal respiratory effort Cardio Rate: regular rate GI Other: Stoma functioning well, Palpation (GI): Soft to palpation, not firm and nontender Assessment & Plan Assessment & Plan (1) Abdominal wall fistula: Code(s): K63.2 - Fistula of intestine Category: Medical (2) Chronic pancreatitis: Code(s): K86.1 - Other chronic pancreatitis Category: Medical Qualifiers: Pancreatitis type: unspecified pancreatitis type Qualified Code(s): K86.1 - Other chronic pancreatitis (3) Ileostomy in place: Code(s): Z93.2 - Ileostomy status Category: Surgical (4) GERD (gastroesophageal reflux disease): Code(s): K21.9 - Gastro-esophageal reflux disease without esophagitis Qualifiers: Esophagitis presence: esophagitis presence not specified Qualified Code(s): K21.9 - Gastro-esophageal reflux disease without esophagitis Plan Patient will continue taking Nexium. She will check ileostomy in make sure that it is draining appropriately. Multiple hospitalization and significant weight loss since last visit in 2023. Patient was encouraged to increase protein intake. Patient will return in 6 months. She was encouraged to call us if she will have any GI concerning symptoms. Patient is agreeable to current plan of care and verbalizes understanding of instructions. She was given the opportunity to ask questions and all questions answered. Thank you for allowing me to participate in her care Medications: New esomeprazole magnesium 20 mg PO DAILY 90 caps 3RF Coding Level of Care Code Est Pt Level 4 (48412) Complex visit Add On G2211 Diagnoses Abdominal wall fistula K63.2 Chronic pancreatitis, unspecified pancreatitis type K86.1 Pancreatitis type: unspecified pancreatitis type Ileostomy in place Z93.2 Gastroesophageal reflux disease, unspecified whether esophagitis present K21.9 Esophagitis presence: esophagitis presence not specified Time Spent (min) 40 Comment 25 minutes spent with patient and additional 15 minutes spent reviewing her records
[2025-07-04 10:04] VITALS: BP 94/66; PULSE 90; O2SAT 99; BMI 18.7
--- OUTSIDE RECORDS SUMMARY | 2025-07-04 11:00 | XMS_ITS | Clinical Summary ---
Author Organization [facility] Address [address] [place] [address] Care Team Providers [employer] Name Role Phone Joi Rebollar MD Primary Care Provider Allergies Active Allergy Reactions Criticality Noted Date Comments Amoxicillin-Pot Clavulanate Rash/Dermatitis Low 05/21/2025 Azithromycin Rash/Dermatitis Low 05/21/2025 Clavulanic Acid Hives,Shortness Of Breath,Angioedema High 05/15/2025 Occurred in 2022 Melatonin GI Intolerance/Nausea/Vo miting Low 05/21/2025 Morphine Anaphylaxis High 05/21/2025 Sulfa Antibiotics Rash/Dermatitis Low 05/21/2025 Medications multivitamin with minerals Tab tabletIndications: Nutritional deficiency Take 1 tablet by mouth daily. 05/22/20 25 Active thiamine mononitrate (VITAMIN B-1) 100 MG tabletIndications: Nutritional deficiency Take 1 tablet (100 mg total) by mouth daily. 05/22/20 25 Active fluticasone (FloNASE) 50 mcg/spray nasal sprayIndications:A llergic rhinitis, unspecified seasonality, unspecified trigger 1 spray into each nostril daily. 05/21/20 25 Active Magnesium 400 MG TabIndications:Nut ritional deficiency Take 800 mg by mouth nightly. 05/21/20 25 Active benzonatate (TESSALON) 100 MG capsuleIndications :Anxiety Take 1 capsule (100 mg total) by mouth 3 (three) times a day as needed for cough. 05/21/20 25 Active acetaminophen (TYLENOL) 325 MG tabletIndications: Intra-abdominal abscess (HCC) Take 2 tablets (650 mg total) by mouth every 4 (four) hours as needed for mild pain, moderate pain, headaches or fever. 05/31/20 25 Active apixaban (ELIQUIS) 5 MG tabletIndications: Atrial fibrillation, unspecified type (HCC) Take 1 tablet (5 mg total) by mouth 2 times a day. 60 tablet 05/31/20 25 Active atorvastatin (Lipitor) 20 MG tabletIndications: Stress-induced cardiomyopathy Take 1 tablet (20 mg total) by mouth daily. 30 tablet 05/31/20 25 Active metoPROLOL SUCCINATE (TOPROL-XL) 25 MG 24 hr tabletIndications: Stress-induced cardiomyopathy Take 1 tablet (25 mg total) by mouth daily. 30 tablet 05/31/20 25 Active calcium carbonate (TUMS) 500 MG chewable tabletIndications: Intra-abdominal abscess (HCC) Chew 1 tablet (500 mg total) 3 (three) times a day as needed for indigestion or heartburn. 05/31/20 25 Active mirtazapine (REMERON) 15 MG tabletIndications: Anxiety Take 1 tablet (15 mg total) by mouth nightly. 30 tablet 05/31/20 25 Active PANTOprazole (PROTONIX) 40 MG EC tabletIndications: Nutritional deficiency Take 1 tablet (40 mg total) by mouth daily. 30 tablet 05/31/20 25 Active folic acid (FOLVITE) 1 MG tabletIndications: Intra-abdominal abscess (HCC) Take 1 tablet (1 mg total) by mouth daily. 30 tablet 06/01/20 25 Active diclofenac (VOLTAREN) 1 % gelIndications:Selene derek osteoarthritis of both knees Apply 2 g topically 4 (four) times a day as needed (knee pain). Use dosing card to measure dose. Apply to entire affect area. 100 g 05/31/20 25 Active ondansetron (ZOFRAN-ODT) 4 MG disintegrating tabletIndications: Colostomy complication (HCC) Take 1 tablet (4 mg total) by mouth daily as needed for nausea or vomiting. Place tablet on tongue to dissolve. 20 tablet 05/31/20 25 Active psyllium (METAMUCIL) 58.12 % Pack packetIndications: Colostomy complication (HCC) Take 1 packet by mouth daily as needed (constipation, loose stools). 05/31/20 Active ramelteon (ROZEREM) 8 MG tabletIndications: Primary insomnia Take 1 tablet (8 mg total) by mouth nightly as needed for sleep. 30 tablet 05/31/20 Active diazepam (VALIUM) 2 MG tabletIndications: Primary insomnia Take 3 tablets (6 mg total) by mouth nightly as needed for anxiety (sleep). Do not start before June 02, 2025. 9 tablet 06/02/20 Active Active Problems Problem Noted Date Diagnosed [...] as there aren't plans to continue benzos custodial (per patient preference); options are limited given prolonged QTC Assessment & Plan (06/01/2025 2:22 PM EDT): - continue Valium 6mg PRN - since Remeron isn't effective for her, adjusted to scheduled Rozerem and dc'd Remeron - Home insomnia regimen: uses Soma for sleeping- which we will resume on discharge as there aren't plans to continue benzos custodial (per patient preference); options are limited given [...] O's, daily weight. She should follow-up with brain surgeon as outpatient, to restart Aldactone, amiodarone and [...] O's, daily weight. She should follow-up with brain surgeon as outpatient, to restart Aldactone, amiodarone and Farxiga Assessment & Plan (05/28/2025 11:42 AM EDT): CHADS2 score is 2 Last echocardiogram without significant change, normal right and left ventricular size and function, ejection fraction is 58% patient has been receiving IV fluids due to dehydration Will follow-up with brain surgeon as outpatient, to restart Aldactone, amiodarone and [...] -Continue atorvastatin 20 mg daily - outpatient brain surgeon will need to address: AC for afib, [...] -Continue atorvastatin 20 mg daily - outpatient brain surgeon will need to address: AC for afib, [...] O's, daily weight. She should follow-up with brain surgeon as outpatient, to restart Aldactone, amiodarone and [...] O's, daily weight. She should follow-up with brain surgeon as outpatient, to restart Aldactone, amiodarone and Farxiga Assessment & Plan (05/28/2025 11:42 AM EDT): CHADS2 score is 2 Last echocardiogram without significant change, normal right and left ventricular size and function, ejection fraction is 58% patient has been receiving IV fluids due to dehydration Will follow-up with brain surgeon as outpatient, to restart Aldactone, amiodarone and [...] -Continue atorvastatin 20 mg daily - outpatient brain surgeon will need to address: AC for afib, [...] -Continue atorvastatin 20 mg daily - outpatient brain surgeon will need to address: AC for afib, [...] with general surgery Dr. Walton on 06/10 [facility] Assessment & Plan (05/29/2025 10:12 AM [...] with general surgery Dr. Walton on 06/10 [facility] Assessment & Plan (05/28/2025 11:53 AM [...] with general surgery Dr. Walton on 06/10 [facility] Assessment & Plan (05/27/2025 8:45 AM EDT): [...] O's, daily weight. She should follow-up with brain surgeon as outpatient, to restart Aldactone, amiodarone and [...] O's, daily weight. She should follow-up with brain surgeon as outpatient, to restart Aldactone, amiodarone and Farxiga Assessment & Plan (05/28/2025 11:42 AM EDT): CHADS2 score is 2 Last echocardiogram without significant change, normal right and left ventricular size and function, ejection fraction is 58% patient has been receiving IV fluids due to dehydration Will follow-up with brain surgeon as outpatient, to restart Aldactone, amiodarone and [...] -Continue atorvastatin 20 mg daily - outpatient brain surgeon will need to address: AC for afib, [...] -Continue atorvastatin 20 mg daily - outpatient brain surgeon will need to address: AC for afib, [...] as there aren't plans to continue benzos custodial (per patient preference); options are limited given prolonged QTC Assessment & Plan (06/01/2025 2:22 PM EDT): - continue Valium 6mg PRN - since Remeron isn't effective for her, adjusted to scheduled Rozerem and dc'd Remeron - Home insomnia regimen: uses Soma for sleeping- which we will resume on discharge as there aren't plans to continue benzos custodial (per patient preference); options are limited given [...] drainage. She presented on 04 07 at [facility] with concerns of draining from her fistula [...] drainage. She presented on 04 07 at [facility] with concerns of draining from her fistula [...] drainage. She presented on 04 07 at [facility] with concerns of draining from her fistula [...] drainage. She presented on 04 07 at [facility] with concerns of draining from her fistula [...] drainage. She presented on 04 07 at [facility] with concerns of draining from her fistula [...] drainage. She presented on 04 07 at [facility] with concerns of draining from her fistula [...] treated with antibiotics. \Plan Continue antibiotics Continue city secretary plan and follow with investigations. 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 Walton on 06/10 [facility] Assessment & Plan (05/29/2025 10:12 AM [...] with general surgery Dr. Walton on 06/10 [facility] Assessment & Plan (05/28/2025 11:53 AM [...] with general surgery Dr. Walton on 06/10 [facility] Assessment & Plan (05/27/2025 8:45 AM EDT): [...] drainage. She presented on 04 07 at [facility] with concerns of draining from her fistula [...] drainage. She presented on 04 07 at [facility] with concerns of draining from her fistula [...] drainage. She presented on 04 07 at [facility] with concerns of draining from her fistula [...] drainage. She presented on 04 07 at [facility] with concerns of draining from her fistula [...] drainage. She presented on 04 07 at [facility] with concerns of draining from her fistula [...] drainage. She presented on 04 07 at [facility] with concerns of draining from her fistula [...] treated with antibiotics. \Plan Continue antibiotics Continue city secretary plan and follow with investigations. 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 who presented to [facility] on 04/27/2025 with increased drainage from fistula [...] multiple admission and draining who presented to [facility] on 04/27/2025 with increased drainage from fistula [...] multiple admission and draining who presented to [facility] on 04/27/2025 with increased drainage from fistula [...] multiple admission and draining who presented to [facility] on 04/27/2025 with increased drainage from fistula [...] multiple admission and draining who presented to [facility] on 04/27/2025 with increased drainage from fistula [...] multiple admission and draining who presented to [facility] on 04/27/2025 with increased drainage from fistula [...] treated with antibiotics. \Plan Continue antibiotics Continue city secretary plan and follow with investigations. 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 Platelets improved 9/12 to 65k. Improvement anticipated by hematology. Today: [...] negative), ITP, or hematologic malignancy. Platelets improved 9/12 to 65k. Improvement anticipated by hematology. -Trend [...] & Plan (05/17/2025 2:37 PM EDT): CT /10: small right and moderate left layering effusion [...] & Plan (05/16/2025 11:59 AM EDT): CT 10: small right and moderate left layering effusion [...] O's, daily weight. She should follow-up with brain surgeon as outpatient, to restart Aldactone, amiodarone and [...] O's, daily weight. She should follow-up with brain surgeon as outpatient, to restart Aldactone, amiodarone and Farxiga Assessment & Plan (05/28/2025 11:42 AM EDT): CHADS2 score is 2 Last echocardiogram without significant change, normal right and left ventricular size and function, ejection fraction is 58% patient has been receiving IV fluids due to dehydration Will follow-up with brain surgeon as outpatient, to restart Aldactone, amiodarone and [...] -Continue atorvastatin 20 mg daily - outpatient brain surgeon will need to address: AC for afib, [...] -Continue atorvastatin 20 mg daily - outpatient brain surgeon will need to address: AC for afib, [...] hold Jardiance to be restarted by outpatient brain surgeon. - Continue metoprolol 25 mg daily - Continue losartan 25 mg daily - Continue holding Jardiance and spironolactone Assessment & Plan (05/20/2025 12:03 PM EDT): Recent echo results from 05/14 reviewed by cardiology, with presumed stress cardiomyopathy. Ejection fraction improved to 58%. Recommending restarting metoprolol succinate and losartan. Advised to hold Jardiance to be restarted by outpatient brain surgeon. - Continue metoprolol 25 mg daily - Continue losartan 25 mg daily - Continue holding Jardiance and spironolactone Assessment & Plan (05/19/2025 6:40 AM EDT): Recent echo results from 05/14 reviewed by cardiology, with presumed stress cardiomyopathy. Ejection fraction improved to 58%. Recommending restarting metoprolol succinate and losartan. Advised to hold Jardiance to be restarted by outpatient brain surgeon. - Continue metoprolol 25 mg daily - Continue losartan 25 mg daily - Continue holding Jardiance and spironolactone Assessment & Plan (05/18/2025 6:47 AM EDT): Recent echo results from 05/14 reviewed by cardiology, with presumed stress cardiomyopathy. Ejection fraction improved to 58%. Recommending restarting metoprolol succinate and losartan. Advised to hold Jardiance to be restarted by outpatient brain surgeon. - Continue metoprolol 25 mg daily - Continue losartan 25 mg daily - Continue holding Jardiance and spironolactone Assessment & Plan (05/17/2025 2:37 PM EDT): Recent echo results from 05/14 reviewed by cardiology, with presumed stress cardiomyopathy. Ejection fraction improved to 58%. Recommending restarting metoprolol succinate and losartan. Advised to hold Jardiance to be restarted by outpatient brain surgeon. - Continue metoprolol 25 mg daily - Continue losartan 25 mg daily - Continue holding Jardiance and spironolactone Assessment & Plan (05/16/2025 7:39 AM EDT): Recent echo results from 05/14 reviewed by cardiology, with presumed stress cardiomyopathy. Ejection fraction improved to 58%. Recommending restarting metoprolol succinate and losartan. Advised to hold Jardiance to be restarted by outpatient brain surgeon. - Continue metoprolol 25 mg daily - Continue losartan 25 mg daily - Continue holding Jardiance and spironolactone Assessment & Plan (05/15/2025 2:08 PM EDT): Cardiology's recommendations were appreciated [05/14]. Recent echo results from 05/14 showed improved ejection fraction of 58%. Recommending restarting metoprolol succinate and losartan. Advised to hold Jardiance to be restarted by outpatient brain surgeon. Plan Recommends metoprolol Losartan 25 mg daily Continue hold on Jardiance and spironolactone Assessment & Plan (05/14/2025 4:48 PM EDT): Cardiology's recommendations were appreciated [05/14]. Recent echo results from 05/14 showed improved ejection fraction of 58%. Recommending restarting metoprolol succinate and losartan. Advised to hold Jardiance to be restarted by outpatient brain surgeon. 1. Discussed restarting metoprolol with attending 2. [...] Description 06/06/2025 Orders Only INPATIENT REHAB [address] [place] [address] Krayzman, Astrid, PA-C Intra-abdominal abscess (HCC) 05/21/2025 4:07 PM EDT - 06/03/2025 11:37 AM EDT Hospital Encounter INPATIENT REHAB [address] [place] [id number] Jhony Laird MD Starrett, [place] J, Intra-abdominal abscess (HCC) (Primary Dx); Atrial fibrillation, unspecified type (HCC); Stress-induced cardiomyopathy; Allergic rhinitis, unspecified seasonality, unspecified trigger; Anxiety; Nutritional deficiency; Primary osteoarthritis of both knees; Colostomy complication (HCC); Primary insomnia Discharge Disposition: Home with Health Care Services 05/21/2025 Travel 05/15/2025 Travel 05/09/2025 Travel 05/08/2025 9:09 PM EDT - 05/21/2025 3:54 PM EDT Hospital Encounter [address] [address] Max Young MD Bergner, MD Elsa Wells Cunegundo, MD Castiglione, Andrew, MD McClure, Mitchell H, MD Anxiety (Primary Dx); Septic shock-resolved; Stress-induced cardiomyopathy; Nutritional deficiency; Pericarditis, unspecified chronicity, unspecified type; Intra-abdominal abscess (HCC); Allergic rhinitis, unspecified seasonality, unspecified trigger; Atrial fibrillation, unspecified type (HCC) Discharge Disposition: Inpatient Rehab Facility 05/08/2025 7:10 PM EDT Ancillary Procedure [facility] [address] [place] [phone] Provider, File Room 05/08/2025 7:05 PM EDT Ancillary Procedure [facility] [address] [place] [phone] Provider, File Room 05/08/2025 7:00 PM EDT Ancillary Procedure [facility] [address] [place] [phone] Provider, File Room 05/08/2025 7:00 PM EDT Ancillary Procedure [facility] [address] [place] [phone] Provider, File Room 05/06/2025 Orders Only [facility] [address] [place] [phone] Provider, File Room from Last 3 Months Social History Tobacco Use Types Packs/Day Years Used Date Smoking Tobacco: Former Cigarettes Smokeless Tobacco: Never Tobacco Cessation:Counseling Given: No Alcohol Use Standard Drinks/Week Comments Never 0 (1 standard drink = 0.6 oz pur e alcohol) [facility] Utilities Answer Date Recorded In the past 12 months has th e electric, gas, oil, or water company threatened to shut off services in your [...] any time in the past 12 m [facility], were you homeless or living in a [...] 6:10 AM EDT OSMOLALITY, URINE Routine 05/25/2025 2: 52 PM EDT SODIUM, URINE, RANDOM Routine 05/25/2025 [...] of17 resultswithin the time period is included. Pathologist [facility] White Blood Cell Count 7.7 4.0 - 11.0 Thou/uL 06/03/2025 7:11 AM [facility] Platelet Count 251 150 - 450 Thou/uL 06/03/2025 7:11 AM [facility] Hemoglobin 7.5(L) 11.7 - 15.7 g/dL 06/03/2025 7:11 AM [facility] Hematocrit 23.5(L) 35.0 - 47.0 % 06/03/2025 7:11 AM [facility] Red Blood Cell Count 2.58(L) 4.00 - 5.40 Mil/uL 06/03/2025 7:11 AM [facility] MCV 91 80 - 100 fL 06/03/2025 7:11 AM [facility] MCH 29.1 27.0 - 31.0 pg 06/03/2025 7:11 AM EDT [facility] MCHC 31.9 30.0 - 36.0 g/dL 06/03/2025 7:11 AM EDT [facility] RDW 18.2(H) 11.5 - 14.5 % 06/03/2025 7:11 AM EDT [facility] MPV 9.5 7.5 - 12.5 fL 06/03/2025 7:11 AM EDT [facility] Blood Blood specimen / Unknown 06/03/2025 6:08 AM EDT 06/03/2025 6:51 AM EDT Anika Lau PA-C LAB BLOOD ORDERABLES Final Re sult Performing Organization Address [facility] [place] [address], [place] [address] * (ABNORMAL) Magnesium (AM) (06/03/2025 6:08 AM EDT) Only the most recent of20 resultswithin the time period is included. Magnesium 1.5(L) 1.6 - 2.7 mg/dL 06/03/2025 7:34 AM EDT [facility] Blood Blood specimen / Unknown 06/03/2025 6:08 AM EDT 06/03/2025 6:51 AM EDT us Anika Lau PA-C LAB BLOOD ORDERABLES Final Re sult Performing Organization Address [facility] [place] [address], [address] [address] * (ABNORMAL) Lipase (06/03/2025 6:08 AM EDT) Only the most recent of2 resultswithin the time period is included. Lipase 256(H) 13 - 60 U/L 06/03/2025 7:34 AM EDT [facility] Blood Blood specimen / Unknown 06/03/2025 6:08 AM EDT 06/03/2025 6:51 AM EDT us Anika Lau PA-C LAB BLOOD ORDERABLES Final Re sult [facility] [address] [place] [address], [facility] [address] [place] [address] * (ABNORMAL) Comprehensive Metabolic Panel (06/03/2025 6:08 AM EDT) Only the most recent of7 resultswithin the time period is included. Glucose 92 65 - 99 mg/dL 06/03/2025 7:34 AM [facility] Comment:Fasting: <100 mg/dL, Non-Fasting: <200 mg/dL (ADA 2004) Blood Urea Nitrogen (BUN) 9 8 - 21 mg/dL 06/03/2025 7:34 AM [facility] Creatinine 0.52 0.40 - 1.10 mg/dL 06/03/2025 7:34 AM [facility] eGFR >90 >59 06/03/2025 7:34 AM [facility] Comment:CKD-EPI (2020) in mL /min/1.73 sq meters. Sodium 135(L) 136 - 145 mmol/L 06/03/2025 7:34 AM [facility] Potassium 3.9 3.4 - 5.3 mmol/L 06/03/2025 7:34 AM [facility] Chloride 104 98 - 107 mmol/L 06/03/2025 7:34 AM [facility] CO2 24 22 - 33 mmol/L 06/03/2025 7:34 AM [facility] Calcium 8.0(L) 8.7 - 10.5 mg/dL 06/03/2025 7:34 AM [facility] Alkaline Phosphatase 119 32 - 122 U/L 06/03/2025 7:34 AM [facility] Aspartate Aminotrans (AST) 21 10 - 50 U/L 06/03/2025 7:34 AM [facility] Alanine Aminotrans (ALT) 11 10 - 50 U/L 06/03/2025 7:34 AM [facility] Bilirubin, Total 0.3 0.2 - 1.0 mg/dL 06/03/2025 7:34 AM EDT [facility] Protein, Total 5.2(L) 6.3 - 8.3 g/dL 06/03/2025 7:34 AM EDT [facility] Albumin 2.5(L) 3.4 - 4.8 g/dL 06/03/2025 7:34 AM EDT [facility] BUN/Creatinine Ratio 17 10.0 - 25.0 Ratio 06/03/2025 7:34 AM EDT [facility] Globulin 2.7 1.5 - 3.9 g/dL 06/03/2025 7:34 AM EDT [facility] Albumin/Globulin Ratio 0.9(L) 1.0 - 3.0 Ratio 06/03/2025 7:34 AM EDT [facility] Anion Gap 7 7 - 17 06/03/2025 7:34 AM EDT [facility] Blood Blood specimen / Unknown 06/03/2025 6:08 AM EDT 06/03/2025 6:51 AM EDT Anika Lau PA-C LAB BLOOD ORDERABLES Final Re sult [address] [address], [address] [address] * ECG 12 lead (06/02/2025 10:24 AM EDT) Only the most recent of15 resultswithin the time period is included. Ventricular rate 81 BPM EKG [facility] Atrial rate 81 BPM EKG [facility] P-R interval 170 ms EKG [facility] QRS duration 66 ms EKG [facility] Q-T interval 406 ms EKG [facility] QTC calculation (Bazett) 472 ms EKG [facility] P axis 51 degrees EKG [facility] R axis 16 degrees EKG [facility] T axis 41 degrees EKG [facility] 06/02/2025 10:2 4 AM EDT Narrative EKG [facility] - 06/02/2025 10:30 AM EDT Normal sinus rhythm Nonspecific T wave abnormality Abnormal ECG Confirmed by MD Pace John ([id number]) on 06/02/2025 10:30:22 AM Procedure Note Alvaro Pace MD - 06/02/2025 Normal sinus rhythm Nonspecific T wave abnormality Abnormal ECG Confirmed by MD Pace John ([id number]) on 06/02/2025 10:30:22 AM us Jhony Laird MD ECG ORDERABLES Final Resu lt Performing Organization Address City/[facility]/ZIP Co de Phone Number EKG [facility] * Lactic Acid, Plasma (STAT) (06/02/2025 7:45 AM EDT) Only the most recent of15 resultswithin the time period is included. [facility] Lactic Acid 0.8 0.5 - 1.9 mmol/L 06/02/2025 8:33 AM EDT [facility] Blood Blood specimen / Unknown 06/02/2025 7:45 AM EDT 06/02/2025 8:03 AM EDT Anika Lau PA-C LAB BLOOD ORDERABLES Final Re sult Performing Organization Address [facility] Co de Phone Number [place] [address], [place] [address] * (ABNORMAL) Complete Blood Count, with Differential (06/02/2025 5:18 AM EDT) Only the most recent of6 resultswithin the time period is included. Pathologist [facility] White Blood Cell Count 10.6 4.0 - 11.0 Thou/uL 06/02/2025 5:59 AM EDT [facility] Platelet Count 269 150 - 450 Thou/uL 06/02/2025 5:59 AM EDT [facility] Hemoglobin 7.9(L) 11.7 - 15.7 g/dL 06/02/2025 5:59 AM EDT [facility] Hematocrit 25.0(L) 35.0 - 47.0 % 06/02/2025 5:59 AM EDT [facility] Red Blood Cell Count 2.79(L) 4.00 - 5.40 Mil/uL 06/02/2025 5:59 AM [facility] MCV 90 80 - 100 fL 06/02/2025 5:59 AM [facility] MCH 28.3 27.0 - 31.0 pg 06/02/2025 5:59 AM [facility] MCHC 31.6 30.0 - 36.0 g/dL 06/02/2025 5:59 AM [facility] RDW 18.0(H) 11.5 - 14.5 % 06/02/2025 5:59 AM [facility] MPV 9.3 7.5 - 12.5 fL 06/02/2025 5:59 AM [facility] Neutrophils Auto 75.6 % 06/02/20 5:59 AM [facility] Immature Granulocytes 0.7 % 06/02/2025 5:59 AM [facility] Lymphocytes Auto 11.7 % 06/02/20 5:59 AM [facility] Monocytes Auto 9.8 % 06/02/2025 5:59 AM [facility] Eosinophils Auto 1.6 % 06/02/20 5:59 AM [facility] Basophils Auto 0.6 % 06/02/2025 5:59 AM [facility] Abs Neutrophils Auto 7.99(H) 2.00 - 7.50 Thou/uL 06/02/2025 5:59 AM [facility] Abs Immature Granulocytes 0.07 0.00 - 0.10 Thou/uL 06/02/2025 5:59 AM [facility] Abs Lymphocytes Auto 1.24(L) 1.50 - 4.50 Thou/uL 06/02/2025 5:59 AM [facility] Abs Monocytes Auto 1.04 0.20 - 1.50 Thou/uL 06/02/2025 5:59 AM [facility] Abs Eosinophils Auto 0.17 0.00 - 0.70 Thou/uL 06/02/2025 5:59 AM [facility] Abs Basophils Auto 0.06 0.00 - 0.20 Thou/uL 06/02/2025 5:59 AM [facility] Blood Blood specimen / Unknown 06/02/2025 5:18 AM EDT 06/02/2025 5:49 AM EDT us Jhony Laird MD LAB BLOOD ORDERABLES Final Result [address] [address], [facility] [address] [place] [address] * CT Abdomen+pelvis w/contrast (06/01/2025 2:25 PM [...] Fleischner guidelines were followed. Anika Lau PA-C IMG CT ORDERABLES Final Resul t * (ABNORMAL) Basic Metabolic Panel (06/01/2025 5:30 AM EDT) Only the most recent of21 resultswithin the time period is included. Glucose 100(H) 65 - 99 mg/dL 06/01/2025 6:03 AM [facility] Comment:Fasting: <100 mg/dL, Non-Fasting: <200 mg/dL (ADA 2004) Blood Urea Nitrogen (BUN) 31(H) 8 - 21 mg/dL 06/01/2025 6:03 AM [facility] Creatinine 1.26(H) 0.40 - 1.10 mg/dL 06/01/2025 6:03 AM [facility] eGFR 47(L) >59 06/01/2025 6:03 AM [facility] Comment:CKD-EPI (2020) in mL /min/1.73 sq meters. Sodium 133(L) 136 - 145 mmol/L 06/01/2025 6:03 AM [facility] Potassium 4.5 3.4 - 5.3 mmol/L 06/01/2025 6:03 AM [facility] Chloride 103 98 - 107 mmol/L 06/01/2025 6:03 AM [facility] CO2 20(L) 22 - 33 mmol/L 06/01/2025 6:03 AM [facility] Anion Gap 10 7 - 17 06/01/2025 6:03 AM [facility] Calcium 8.7 8.7 - 10.5 mg/dL 06/01/2025 6:03 AM [facility] BUN/Creatinine Ratio 25 10.0 - 25.0 Ratio 06/01/2025 6:03 AM [facility] Blood Blood specimen / Unknown 06/01/2025 5:30 AM EDT 06/01/2025 5:35 AM EDT us Anika Lau PA-C LAB BLOOD ORDERABLES Final Re sult [facility] [address] [place] [address], [facility] [address] [place] [address] * XR Knee 3 views-Bilateral (05/28/2025 4:06 [...] in the right knee. Sydni Barakat MD IMG DIAGNOSTIC IMAGING ORDER PAT Final Result * Phosphorus (AM) (05/27/2025 6:20 AM EDT) Only the most recent of10 resultswithin the time period is included. Phosphorus 2.8 2.7 - 4.5 mg/dL 05/27/2025 7:24 AM EDT [facility] Blood Blood specimen / Unknown 05/27/2025 6:20 AM EDT 05/27/2025 6:49 AM EDT Jessica Earl PA-C LAB BLOOD ORDERABLES Final Result Performing Organization Address City/[facility]/[place] [address], [place] [address] * Sodium, Urine, Random (05/25/2025 2:52 PM EDT) Sodium, Urine Random <20 mmol/L 05/25/2025 3:28 PM EDT [facility] Comment:Reference range not established for random specimen. Urine Urine specimen / Unknown 05/25/2025 2:52 PM EDT 05/25/2025 3:10 PM EDT Ratna Ward APRN URINE ORDERABLES Final Result Performing Organization Address City/[facility]/[place] [address], [place] [address] * Osmolality, Urine (05/25/2025 2:52 PM EDT) Osmolality, Urine 546 50 - 1,200 mOsm/Kg 05/25/2025 4:13 PM EDT [facility] Urine Urine specimen / Unknown 05/25/2025 2:52 PM EDT 05/25/2025 3:10 PM EDT us Ratna Ward LITIGATION DOCKET MANAGER URINE ORDERABLES Final Result [address] [address], [address] [address] * (ABNORMAL) Renal Function Panel (05/24/2025 5:13 AM EDT) Glucose 92 65 - 99 mg/dL 05/24/2025 7:38 AM [facility] Comment:Fasting: <100 mg/dL, Non-Fasting: <200 mg/dL (ADA 2004) Blood Urea Nitrogen (BUN) 31(H) 8 - 21 mg/dL 05/24/2025 7:38 AM [facility] Creatinine 1.05 0.40 - 1.10 mg/dL 05/24/2025 7:38 AM [facility] eGFR 59(L) >59 05/24/2025 7:38 AM [facility] Comment:CKD-EPI (2020) in mL /min/1.73 sq meters. Sodium 131(L) 136 - 145 mmol/L 05/24/2025 7:38 AM [facility] Potassium 4.4 3.4 - 5.3 mmol/L 05/24/2025 7:38 AM [facility] Chloride 98 98 - 107 mmol/L 05/24/2025 7:38 AM [facility] CO2 21(L) 22 - 33 mmol/L 05/24/2025 7:38 AM [facility] Calcium 8.6(L) 8.7 - 10.5 mg/dL 05/24/2025 7:38 AM [facility] Phosphorus 3.0 2.7 - 4.5 mg/dL 05/24/2025 7:38 AM [facility] Albumin 3.4 3.4 - 4.8 g/dL 05/24/2025 7:38 AM [facility] BUN/Creatinine Ratio 30(H) 10.0 - 25.0 Ratio 05/24/2025 7:38 AM EDT [facility] Blood Blood specimen / Unknown 05/24/2025 5:13 AM EDT 05/24/2025 6:24 AM EDT Sydni Barakat MD LAB BLOOD ORDERABLES Final R esult Performing Organization Address [facility] Co de Phone Number [address] [address], [address] [address] * (ABNORMAL) High Sensitivity D-Dimer (05/17/2025 5:09 AM EDT) Only the most recent of7 resultswithin the time period is included. High Sensitivity D-Dimer 344(H) <230 ng/mL DDU 05/17/2025 6:23 AM EDT [facility] Comment: The threshold for exclusion of [...] 5:09 AM EDT 05/17/2025 6:04 AM EDT Malvin Boone MD LAB BLOOD ORDERABLES Final Result Performing Organization Address City/[facility]/ZIP Co de Phone Number [address] [address], [address] [address] * Partial Thromboplastin Time (PTT) (05/17/2025 5:09 AM EDT) Only the most recent of7 resultswithin the time period is included. Anticoagulant NO ANTI COAGULANT MEDS 05/17/2025 5:09 AM EDT [facility] Partial Thromboplastin Time (PTT) 28 25 - 36 seconds 05/17/2025 6:23 AM EDT [facility] Blood Blood specimen / Unknown 05/17/2025 5:09 AM EDT 05/17/2025 6:04 AM EDT us Malvin Boone MD LAB BLOOD ORDERABLES Final Result Performing Organization Address [facility] Co de Phone Number [address] [address], [address] [address] * (ABNORMAL) PROTIME-INR (05/17/2025 5:09 AM EDT) Only the most recent of8 resultswithin the time period is included. Anticoagulant NO ANTI COAGULANT MEDS 05/17/2025 5:09 AM EDT [facility] Prothrombin Time (PT) 17.1(H) 10.0 - 13.5 seconds 05/17/2025 6:23 AM EDT [facility] INR 1.5 05/17/2025 6:23 AM EDT [facility] Comment:INR Therapeutic Rang es: Standard dose anticoagulant 2.0 to 3.0, High dose anticoagulant 2.5-3.5. Blood Blood specimen / Unknown 05/17/2025 5:09 AM EDT 05/17/2025 6:04 AM EDT us Malvin Boone MD LAB BLOOD ORDERABLES Final Result Performing Organization Address [facility] Co de Phone Number [address] [address], [address] [address] * Fibrinogen Level (05/17/2025 5:09 AM EDT) Only the most recent of8 resultswithin the time period is included. Fibrinogen 179 148 - 435 mg/dL 05/17/2025 6:23 AM EDT [facility] Blood Blood specimen / Unknown 05/17/2025 5:09 AM EDT 05/17/2025 6:04 AM EDT us Malvin Boone MD LAB BLOOD ORDERABLES Final Result Performing Organization Address City/[facility]/ZIP Co de Phone Number [address] [address], [address] [address] * Protein, Total (05/17/2025 5:09 AM EDT) Protein, Total 6.3 6.3 - 8.3 g/dL 05/17/2025 6:30 AM EDT [facility] Blood Blood specimen / Unknown 05/17/2025 5:09 AM EDT 05/17/2025 6:04 AM EDT us Malvin Boone MD LAB BLOOD ORDERABLES Final Result Performing Organization Address [facility] [place] [address], [address] [address] * Lactate Dehydrogenase (LDH) (05/17/2025 5:09 AM EDT) Only the most recent of2 resultswithin the time period is included. Lactate Dehydrogenase (LDH) 137 120 - 260 U/L 05/17/2025 6:30 AM EDT [facility] Blood Blood specimen / Unknown 05/17/2025 5:09 AM EDT 05/17/2025 6:04 AM EDT us Malvin Boone MD LAB BLOOD ORDERABLES Final Result Performing Organization Address City/[facility]/ZIP Co de Phone Number [address] [address], [address] [address] * THORACENTESIS (05/16/2025 3:58 PM EDT) Anatomical [...] to verify the correct patient, procedure, equipment, senior safety support manager and site/side marked as required. Procedure purpose: [...] Sample left with bedside RN. ACCESS: 6 Malagasy Oyrr-E-Brsqqkqj closed needle/catheter system REQUESTING PRACTITIONER: KURT Mitchell [...] adjacent organs or vascular structures. A 6 Malagasy Izyi-F-Dwhtxyno closed needle/catheter system was utilized for access. 400 ml of clear yellow fluid was aspirated before drainage ceased. The catheter was removed and a sterile dressing applied. The patient tolerated the procedure well without evidence of complications. Malvin Boone MD [facility] US ORDERABLES Final Re sult * Culture - Pleural Fluid (includes Aerobic, Anaerobic and Gram Stain) (05/16/2025 3:35 PM EDT) Gram stain suggestive of Moderate neutrophils Mononuclear cells No organisms seen 05/16/2025 7:33 PM EDT [facility] Culture No aerobes and anaerobes isolated after 7 days 05/23/2025 3:38 PM EDT [facility] Fluid, Pleural Specimen from pleura obtained by thoracentesis / Unknown 05/16/2025 3:35 PM EDT 05/16/2025 5:52 PM EDT Comment:Fluid, Pleural us Malvin Boone MD MICROBIOLOGY - GENERAL ORD ERABLES Final Result [facility] [address] [place] [address], [address] [address] * Protein - Pleural Fluid (05/16/2025 3:35 PM EDT) Source Pleural Cavity, Left 05/16/2025 3:35 PM EDT [facility] Comment:Fluid, Pleural Protein, Body Fluid 2.3 g/dL 05/16/2025 5:40 PM EDT [facility] Comment:The reference interv al(s) and other [...] ORD ERABLES Final Result Performing Organization Address City/[facility] Co de Phone Number [address] [address], [place] [address] * LDH - Pleural Fluid (05/16/2025 3:35 PM EDT) Source Pleural Cavity, Left 05/16/2025 3:35 PM EDT [facility] Comment:Fluid, Pleural Lactate Dehydrogenase, Body Fluid 51 U/L 05/16/2025 5:40 PM EDT [facility] Comment:The reference interv al(s) and other [...] ORD ERABLES Final Result Performing Organization Address City/State/[facility] Co de Phone Number [address] [address], [address] [address] * Glucose - Pleural Fluid (05/16/2025 3:35 PM EDT) Source Pleural Cavity, Left 05/16/2025 3:35 PM EDT [facility] Comment:Fluid, Pleural Glucose, Body Fluid 84 mg/dL 05/16/2025 5:40 PM EDT [facility] Comment:The reference interv al(s) and other method performance specifications are unavailable for this body fluid. Comparison of this result with the concentration in the blood, serum, or plasma is recommended. Fluid, Pleural Specimen from pleura obtained by thoracentesis / Unknown 05/16/2025 3:35 PM EDT 05/16/2025 4:33 PM EDT Malvin Boone MD BODY FLUIDS AND STOOLS ORD ERABLES Final Result Performing Organization Address [facility] Co de Phone Number [address] [address], [address] [address] * Cell Count, Reflex Differential, Body Fluid (05/16/2025 3:35 PM EDT) Appearance, Body Fluid Clear 05/16/2025 8:39 PM EDT [facility] Color Yellow 05/16/2025 8:39 PM EDT [facility] Nucleated Cells, Fluid 96 /CUMM 05/16/2025 5:41 PM EDT [facility] Comment:Macroscopic particle s present. Question accuracy of results. RBC, Fluid <2,000 /CUMM 05/16/2025 5:41 PM EDT [facility] Comment:Macroscopic particle s present. Question accuracy of results. Neutrophil, Body Fluid 4 % 05/16/2025 8:39 PM EDT [facility] Lymphoctye, Body Fluid 22 % 05/16/2025 8:39 PM EDT [facility] Monocyte, Body Fluid 38 % 05/16/2025 8:39 PM EDT [facility] Histiocyte, Body Fluid 28 % 05/16/2025 8:39 PM EDT [facility] Mesothelial, Body Fluid 8 % 05/16/2025 8:39 PM EDT [facility] Smear Comment, Body Fluid The reference interval and other method performance specifications are unavailable for this body fluid. Comparison of the result with concentration in the blood, serum, or plasma is recommended 05/16/2025 8:39 PM EDT [facility] Fluid, Pleural Specimen from pleura obtained by thoracentesis / Unknown 05/16/2025 3:35 PM EDT 05/16/2025 4:33 PM EDT us Malvin Boone MD BODY FLUIDS AND STOOLS ORD ERABLES Final Result Performing Organization Address City/[facility] [place] [address], [place] [address] * Thrombin Time (05/16/2025 10:00 AM EDT) Only the most recent of5 resultswithin the time period is included. Anticoagulant NO ANTI COAGULANT MEDS 05/16/2025 9:22 AM EDT [facility] Thrombin Time 18.1 12.7 - 19.2 seconds 05/16/2025 10:40 AM EDT [facility] Blood Blood specimen / Unknown 05/16/2025 10:00 AM EDT 05/16/2025 10:12 AM EDT us Calvin Lew MD LAB BLOOD ORDERABLES Final Result Performing Organization Address City/[facility]/[place] [address], [place] [address] * EEG < 24 HR W/VIDEO -REDUCED SERVICE (05/15/2025 8:22 AM EDT) Narrative [facility] - 05/15/2025 8:23 AM EDT Laura Chaudhari MD 05/15/2025 1:22 PM ADULT INPATIENT CONTINUOUS VIDEO-EEG MONITORING (LTM) REPORT Facility: [facility] Patient and : Kia Phelps 1960 [...] care. MD Olivia Galicia MD ABPN Epilepsy. [facility] Greg Sigala MD NEUROLOGY ORDERABLES Edited Res ult - Final Performing Organization Address City/[facility]/ZIP Co de Phone Number [facility] [address] [place] [address], * (ABNORMAL) C-REACTIVE PROTEIN (05/15/2025 5:48 AM EDT) C-Reactive Protein 2.18(H) 0 - 0.49 mg/dL 05/15/2025 10:45 AM EDT [facility] 05/15/2025 5:48 AM EDT 05/15/2025 6:27 AM EDT Calvin Lew MD LAB BLOOD ORDERABLES Final Result Performing Organization Address [facility] [place] [address], [place] [address] * EEG 24 HOUR WITH VIDEO (05/15/2025 4:45 AM EDT) Narrative [facility] - 05/14/2025 5:24 PM EDT Laura Chaudhari MD 05/14/2025 5:25 PM ADULT INPATIENT CONTINUOUS VIDEO-EEG MONITORING (LTM) REPORT Facility: [facility] Patient and : Kia Phelps 1960 [...] care. MD Olivia Galicia MD ABPN Epilepsy. [facility] us Greg Sigala MD NEUROLOGY ORDERABLES Final Resu lt [facility] [address] [place] [address], * Transfuse RBC's: (05/14/2025 2:19 PM EDT) us Reena Villarreal MD BLOOD TRANSFUSION ORDERA BLES [...] previous study for comparison in our system. us Jaclyn Hunter MD CV ECHO ORDERABLES Final Re sult * Prepare RBC's:Prepare in: Units; Number of Units: 1; Transfusion Indications: Hemoglobin less than 7 gm/dl or HCT less than 21% (05/14/2025 6:58 AM EDT) Units Ordered 1 05/14/2025 6:58 AM EDT 05/14/2025 6:58 AM EDT 05/14/2025 7:08 AM EDT us Reena Villarreal MD BLOOD BANK PRODUCT ORDER PAT Final Result [facility]ITAL [facility] See Below * (ABNORMAL) Differential, Automated (For Add-On Orders to CBC ONLY) (05/14/2025 6:20 AM EDT) Neutrophils Auto 64.9 % 05/14/20 11:34 AM EDT [facility] Immature Granulocytes 0.7 % 05/14/2025 11:34 AM EDT [facility] Lymphocytes Auto 20.3 % 05/14/20 11:34 AM EDT [facility] Monocytes Auto 9.9 % 05/14/2025 11:[facility] Eosinophils Auto 3.4 % 05/14/20 11:34 AM EDT [facility] Basophils Auto 0.8 % 05/14/2025 11:34 AM EDT [facility] Abs Neutrophils Auto 4.73 2.00 - 7.50 Thou/uL 05/14/2025 11:34 AM EDT [facility] Abs Immature Granulocytes 0.05 0.00 - 0.10 Thou/uL 05/14/2025 11:34 AM EDT [facility] Abs Lymphocytes Auto 1.48(L) 1.50 - 4.50 Thou/uL 05/14/2025 11:34 AM [facility] Abs Monocytes Auto 0.72 0.20 - 1.50 Thou/uL 05/14/2025 11:34 AM EDT [facility] Abs Eosinophils Auto 0.25 0.00 - 0.70 Thou/uL 05/14/2025 11:34 AM [facility] Abs Basophils Auto 0.06 0.00 - 0.20 Thou/uL 05/14/2025 11:34 AM [facility] Blood specimen / Unknown 05/14/2025 6:20 AM EDT 05/14/2025 6:28 AM EDT us Calvin Lew MD LAB BLOOD ORDERABLES Final Result [address] [address], [address] [address] * Triglycerides (05/14/2025 6:20 AM EDT) Triglycerides 88 <150 mg/dL 05/14/2025 6:59 AM EDT [facility] Blood Blood specimen / Unknown 05/14/2025 6:20 AM EDT 05/14/2025 6:28 AM EDT Calvin Lew MD LAB BLOOD ORDERABLES Final Result Performing Organization Address City/[facility]/ZIP Co de Phone Number [address] [address], [address] [address] * (ABNORMAL) Ferritin (05/14/2025 6:20 AM EDT) Ferritin 657(H) 30 - 400 ug/L 05/14/2025 6:59 AM EDT [facility] Blood Blood specimen / Unknown 05/14/2025 6:20 AM EDT 05/14/2025 6:28 AM EDT Calvin Lew MD LAB BLOOD ORDERABLES Final Result Performing Organization Address City/[facility] Co de Phone Number [address] [address], [address] [address] * (ABNORMAL) POCT Glucose, Fingerstick (05/13/2025 8:06 [...] WITH VIDEO (05/13/2025 7:08 PM EDT) Narrative [facility] - 05/13/2025 1:40 PM EDT Laura Chaudhari MD 05/13/2025 1:41 PM ADULT INPATIENT CONTINUOUS VIDEO-EEG MONITORING (LTM) REPORT Facility: [facility] Patient and : Kia Phelps 1960 [...] care. MD Olivia Galicia MD ABPN Epilepsy. [facility] us Greg Sigala MD NEUROLOGY ORDERABLES Final Resu lt [facility] [address] [place] [address], * Transfuse Platelets:Transfusion Indications: Plt count less than or equal to 50K and Pre or Post surgery or invasive procedure (05/13/2025 2:36 PM EDT) Calvin Lew MD BLOOD TRANSFUSION ORDERABL ES Final Result * Type and Screen (05/13/2025 8:15 AM EDT) ABO/Rh O POSITIVE 05/13/2025 10:21 AM [facility] Antibody Screen NEGATIVE 05/13/2025 10:21 AM [facility] Specimen Expiration 05/16/2025 05/13/2025 10:21 AM [facility] Blood Bank Comment Second Sample needed for Blood Transfusion 05/13/2025 10:21 AM [facility] Unit Number [id number] 05/14/2025 7:07 AM [facility] Blood Component Type LEUKOREDUCED RED CELLS 05/14/2025 7:07 AM EDT [facility] Unit Division 00 05/14/2025 7:07 AM [facility] Unit Status ISSUED,FINAL 05/15/2025 12:20 AM [facility] Transfusion Status OK TO TRANSFUSE 05/14/2025 7:07 AM EDT [facility] Crossmatch Result Electronically Compatible 05/14/2025 7:07 AM EDT [facility] Blood Blood specimen / Unknown 05/13/2025 8:15 AM EDT 05/13/2025 9:28 AM EDT Comment:Blood us Calvin Lew MD BLOOD BANK TEST ORDERABLES Final Result [place] [place] [address] * Prepare Platelets:Prepare in: Doses; Number of doses: 1; Transfusion Indications: Plt count less than or equal to 50K and Pre or Post surgery or invasive procedure (05/13/2025 7:32 AM EDT) Units Ordered 1 05/13/2025 7:32 AM EDT Unit Number [id number] 05/13/2025 12:03 PM EDT [facility] Blood Component Type Apheresis Platelets (7d) Irradiated Leukocytes Reduced - 1st container 05/13/2025 12:03 PM EDT [facility] Unit Division 00 05/13/2025 12:03 PM EDT [facility] Unit Status ISSUED,FINAL 05/14/2025 12:20 AM EDT [facility] Transfusion Status OK TO TRANSFUSE 05/13/2025 12:03 PM EDT [facility] 05/13/2025 7:32 AM EDT 05/13/2025 12:03 PM EDT us Calvin Lew MD BLOOD BANK PRODUCT ORDERAB LES Final Result Performing Organization Address City/[facility]/ZIP Co de Phone Number [facility]P[facility] [place] [address] * EEG 24 HOUR WITH VIDEO (05/13/2025 6:31 AM EDT) Narrative [facility] - 05/12/2025 1:41 PM EDT Laura Chaudhari MD 05/12/2025 1:45 PM ADULT INPATIENT CONTINUOUS VIDEO-EEG MONITORING (LTM) REPORT Facility: [facility] Patient and : Kia Phelps 1960 [...] care. MD Olivia Galicia MD ABPN Epilepsy. [facility] us Greg Sigala MD NEUROLOGY ORDERABLES Final Resu lt [facility] [address] [place] [address], * ABO Confirmation (05/13/2025 4:49 AM EDT) ABO/Rh O POSITIVE 05/13/2025 12:01 PM EDT [facility] Blood specimen / Unknown 05/13/2025 4:49 AM EDT 05/13/2025 10:48 AM EDT Max Young MD BLOOD BANK TEST ORDERABLES Queenie hartley Result [address] [address], [address] [address] * (ABNORMAL) HEPATIC FUNCTION PANEL (05/13/2025 4:49 AM EDT) Only the most recent of2 resultswithin the time period is included. Alkaline Phosphatase 197(H) 32 - 122 U/L 05/13/2025 7:44 AM EDT [facility] Aspartate Aminotrans (AST) 38 10 - 50 U/L 05/13/2025 7:44 AM [facility] Alanine Aminotrans (ALT) 7(L) 10 - 50 U/L 05/13/2025 7:44 AM EDT [facility] Bilirubin, Total 0.6 0.2 - 1.0 mg/dL 05/13/2025 7:44 AM T [facility] Protein, Total 5.4(L) 6.3 - 8.3 g/dL 05/13/2025 7:44 AM EDT [facility] Albumin 3.0(L) 3.4 - 4.8 g/dL 05/13/2025 7:44 AM [facility] Bilirubin, Direct 0.4(H) 0 - 0.2 mg/dL 05/13/2025 7:44 AM EDT [facility] Globulin 2.4 1.5 - 3.9 g/dL 05/13/2025 7:44 AM [facility] Albumin/Globulin Ratio 1.3 1.0 - 3.0 Ratio 05/13/2025 7:44 AM EDT [facility] 05/13/2025 4:49 AM EDT 05/13/2025 5:52 AM EDT us Calvin Lew MD LAB BLOOD ORDERABLES Final Result [facility] [address] [place] [address], [facility] [address] [place] [address] * MRI Brain w w/o contrast (05/12/2025 [...] INPATIENT CONTINUOUS VIDEO-EEG MONITORING (LTM) REPORT Facility: [facility] Patient and : Kia Phelps 1960 [...] care. MD Olivia Galicia MD ABPN Epilepsy. [facility] us Greg Sigala MD NEUROLOGY ORDERABLES Final Resu lt [facility] [address] [id number], [place] * XR Abdomen 1 view (05/11/2025 [...] region of the gastric pylorus. us Jaclyn Huntre MD IMG DIAGNOSTIC IMAGING [facility] Final Result * EEG 24 HOUR WITH VIDEO (05/11/2025 1:39 AM EDT) Narrative [facility] - 05/10/2025 11:31 AM EDT Laura Chaudhari MD 05/10/2025 11:35 AM ADULT INPATIENT CONTINUOUS VIDEO-EEG MONITORING (LTM) REPORT Facility: [facility] Patient and : Kia Phelps 1960 [...] care. MD Olivia Galicia MD ABPN Epilepsy. [facility] Greg Sigala MD NEUROLOGY ORDERABLES Final Resu lt Performing Organization Address City/[facility]/ZIP Co de Phone Number [facility] [id number] [place] [address], * (ABNORMAL) Transferrin (05/10/2025 8:10 PM EDT) Transferrin 57(L) 200 - 360 mg/dL 05/10/2025 8:41 PM EDT [facility] [facility] Blood Blood specimen / Unknown 05/10/2025 8:10 PM EDT 05/10/2025 8:14 PM EDT Jaclyn Hunter MD LAB BLOOD ORDERABLES Final Result Performing Organization Address City/[facility] [place] [address], [address] [address] * FEEDING TUBE PLACEMENT (NASODUODENAL/NASOJEJUNAL) (05/10/2025 1:17 [...] to verify the correct patient, procedure, equipment, senior safety support manager and site/side marked as required. Preparation: Patient was prepped and draped in the usual sterile fashion. Local anesthesia used: no Anesthesia: Local anesthesia used: no Sedation: Patient sedated: no Patient tolerance: patient tolerated the procedure well with no immediate complications us Priscilla Subramanian MD PROCEDURE/MINOR SURGICAL PERFORM PAT Final Result * [...] elastography may be considered as clinically warranted. us Priscilla Moris [facility] US ORDERABLES Final Result * Pathology Smear Review, Whole Blood (05/10/2025 6:20 AM EDT) Pathology Comment Smear review: 05/11/2025 1:30 AM EDT [facility] Comment: Anemia and thrombocytopenia--smear not diagnostic of etiology. Pasquale cells: consider electrolyte imbalance vs artifact. Junior Dominguez MD ([facility]) Blood specimen / Unknown 05/10/2025 6:20 AM EDT 05/10/2025 6:25 AM EDT us Priscilla Subramanian MD PATHOLOGY/CYTOLOGY ORDERABLES Fi nal Result [address] [address], [address] [address] * EEG 24 HOUR WITH VIDEO (05/10/2025 3:58 AM EDT) Narrative NATUS - 05/09/2025 5:20 AM EDT Olivia Berman MD 05/09/2025 3:23 PM ADULT INPATIENT CONTINUOUS VIDEO-EEG MONITORING (LTM) REPORT Facility: [facility] Patient and : Kia Phelps 1960 [...] patient care. Olivia Berman MD ABPN Epilepsy. [facility] Greg Sigala MD NEUROLOGY ORDERABLES Edited Res ult - Final Performing Organization Address City/[facility]/ZIP Co de Phone Number [address] [place] [address], * (ABNORMAL) Prealbumin (05/09/2025 5:45 PM EDT) Prealbumin 6(L) 20 - 40 mg/dL 05/09/2025 7:10 PM EDT [facility] Blood Blood specimen / Unknown 05/09/2025 5:45 PM EDT 05/09/2025 6:07 PM EDT Priscilla Subramanian MD LAB BLOOD ORDERABLES Final Resul t Performing Organization Address City/[facility]/ZIP Co de Phone Number [address] [address], [address] [address] * (ABNORMAL) Folate Level (05/09/2025 5:45 PM EDT) Folate, Serum 4.6(L) >7.2 ng/mL 05/09/2025 7:24 PM EDT [facility] Blood Blood specimen / Unknown 05/09/2025 5:45 PM EDT 05/09/2025 6:07 PM EDT us Priscilla Subramanian MD LAB BLOOD ORDERABLES Final Resul t Performing Organization Address [facility] [place] [address], [place] [address] * Vitamin B12 (05/09/2025 5:45 PM EDT) Vitamin B12 772 243 - 894 pg/mL 05/09/2025 7:10 PM EDT [facility] Blood Blood specimen / Unknown 05/09/2025 5:45 PM EDT 05/09/2025 6:07 PM EDT us Priscilla Subramanian MD LAB BLOOD ORDERABLES Final Resul t Performing Organization Address [facility] [place] [address], [place] [address] * Blood Culture (05/09/2025 10:23 AM EDT) Only the most recent of2 resultswithin the time period is included. Culture Sterile after 5 days 05/14/2025 3:10 PM EDT [facility] Blood Blood specimen / Unknown 05/09/2025 10:23 AM EDT 05/09/2025 11:30 AM EDT Comment:Blood us Priscilla Subramanian MD LAB BLOOD ORDERABLES Final Resul t Performing Organization Address City/[facility] Co de Phone Number [facility] [address] [place] [address], * Procalcitonin (05/09/2025 10:20 AM EDT) Procalcitonin 0.28 <0.51 ng/mL 05/09/2025 11:37 AM EDT [facility] Comment: New Reference Range for Procalcitonin [...] ORDERABLES Final Resu lt Performing Organization Address City/[facility]/[place] [address], [place] [address] * Nasal MRSA Screen, PCR (05/09/2025 10:20 AM EDT) [facility] MRSA Result Not Detected Not Detected 5:21 PM EDT [facility] Comment:Performed by the Xpe rt MRSA NxG Assay Swab, Anterior Nares Specimen from nose / Unknown 05/09/2025 10:20 AM EDT 05/09/2025 12:38 PM EDT us Dieter Molina MD MICROBIOLOGY - GENERAL ORDERABL ES Final Result Performing Organization Address [facility] [place] [address], [place] [facility] [address] [place] [address] * Heparin PF4 Ab Screen Reflex Serotonin Release Assay (05/09/2025 9:10 AM EDT) Heparin PF4 Antibody Negative Negative 05/09/2025 11:20 AM EDT [facility] Comment:Negative Screen, ref destinee testing not indicated. Blood Blood specimen / Unknown 05/09/2025 9:10 AM EDT 05/09/2025 9:34 AM EDT Priscilla Subramanian MD LAB BLOOD ORDERABLES Final Resul t Performing Organization Address City/[facility]/ZIP Co de Phone Number [address] [address], [address] [address] * Haptoglobin (05/09/2025 9:10 AM EDT) Haptoglobin 65 30 - 200 mg/dL 05/09/2025 10:09 AM EDT [facility] Blood Blood specimen / Unknown 05/09/2025 9:10 AM EDT 05/09/2025 9:34 AM EDT Priscilla Subramanian MD LAB BLOOD ORDERABLES Final Resul t Performing Organization Address [facility] Co de Phone Number [address] [address], [address] [address] * (ABNORMAL) proBNP, N-terminal (05/09/2025 3:00 AM EDT) proBNP, N-terminal 41,316(H) <125 pg/mL 05/09/2025 4:11 AM EDT [facility] Blood Blood specimen / Unknown 05/09/2025 3:00 AM EDT 05/09/2025 3:35 AM EDT Max Young MD LAB BLOOD ORDERABLES Final Resu lt Performing Organization Address City/[facility]/ZIP Co de Phone Number [address] [address], [address] [place] [address] * CTA Chest for P.E. (05/09/2025 2:26 [...] renal calculi. Interpreted by: Evin Elise MD Heating And Ventilating Drafter I personally reviewed the images and the resident's preliminary report and made the MINOR addendum above (RADPAL2). Narrative 05/09/2025 9:47 AM EDT EXAMINATION: CTA OF THE CHEST, ABDOMEN, AND PELVIS WITH AND WITHOUT CONTRAST CLINICAL INFORMATION: 65 years old Female with tachycardia, lactic acidosis COMPARISON: CT abdomen and pelvis 04/23/2025 CT chest 08/18/2016 DESCRIPTION: Initial noncontrast localizing family day care worker images were obtained. Timing boluses at the [...] CT chest 08/18/2016 DESCRIPTION: Initial noncontrast localizing family day care worker images were obtained. Timing boluses at the [...] renal calculi. Interpreted by: Evin Elise MD Heating And Ventilating Drafter I personally reviewed the images and the [...] renal calculi. Interpreted by: Evin Elise MD Heating And Ventilating Drafter I personally reviewed the images and the resident's preliminary report and made the MINOR addendum above (RADPAL2). Narrative 05/09/2025 9:47 AM EDT EXAMINATION: CTA OF THE CHEST, ABDOMEN, AND PELVIS WITH AND WITHOUT CONTRAST CLINICAL INFORMATION: 65 years old Female with tachycardia, lactic acidosis COMPARISON: CT abdomen and pelvis 04/23/2025 CT chest 08/18/2016 DESCRIPTION: Initial noncontrast localizing family day care worker images were obtained. Timing boluses at the [...] CT chest 08/18/2016 DESCRIPTION: Initial noncontrast localizing family day care worker images were obtained. Timing boluses at the [...] renal calculi. Interpreted by: Evin Elise MD Heating And Ventilating Drafter I personally reviewed the images and the resident's preliminary report and made the MINOR addendum above (RADPAL2). Max Young MD IMG CT ORDERABLES Final Result * Prolactin (05/08/2025 11:57 PM EDT) Prolactin 7.6 4.8 - 23.3 ng/mL 05/09/2025 12:38 AM EDT [facility] Blood Blood specimen / Unknown 05/08/2025 11:57 PM EDT 05/09/2025 12:03 AM EDT Max Young MD LAB BLOOD ORDERABLES Final Resu lt Performing Organization Address [facility] [place] [address], [place] [address] * (ABNORMAL) Blood Gas, Venous (05/08/2025 11:57 PM EDT) Venous Blood PH 7.34 7.33 - 7.43 05/09/2025 12:20 AM EDT [facility] Venous pCO2 30(L) 35 - 50 mmHG 05/09/2025 12:20 AM EDT [facility] Venous pO2 95(H) 0 - 60 mmHG 05/09/2025 12:20 AM T [facility] Venous Total CO2 17(L) 23 - 29 mmol/L 05/09/2025 12:20 AM T [facility] Respiratory Info ROOM AIR 05/08/20 10:32 PM EDT [facility] Base Deficiency 8.6 mmol/L 12:20 AM EDT [facility] Comment:Reference Range: Neg ative 2 to Positive 3 Blood Blood specimen / Unknown 05/08/2025 11:57 PM EDT 05/09/2025 12:02 AM EDT Max Young MD LAB BLOOD ORDERABLES Final Resu lt Performing Organization Address [facility] [place] [address], [place] [address] * CT Head Archive for Reference Only (05/08/2025 6:58 PM EDT) Only the most recent of3 resultswithin the time period is included. Prashanth TAVERAS - 05/08/2025 6:58 PM EDT This study has been auto finalized and does not contain a result. us File Room Provider IMG DIGITIZE FILMS Final Resu lt Performing Organization Address City/[facility]/ZIP Co de Phone Number NITIN [phone] * MR Head Archive for Reference Only (05/08/2025 6:57 PM EDT) Narrative NITIN - 05/08/2025 6:57 PM EDT This study has been auto finalized and does not contain a result. us File Room Provider IMG DIGITIZE FILMS Final Resu lt NITIN [phone] from Last 3 Months Insurance [employer] MGD MEDICARE Advance Directives * Full Code (Latest Code Status on File) Date Activated Date Inactivated Comments 05/21/2025 11:21 AM * Full Code Date Activated Date Inactivated Comments 05/08/2025 10:02 PM 05/21/2025 11:21 AM Healthcare Agents on File Name Relationship Healthcare Agent Relationshi p Communication Geovanna Vasquez Adult child 1. Health Care Represe ntative Care Teams Laborer [employer] Relationship Specialty Start Date End Date Joi Rebollar MD [address] [place] [address] PCP - General Internal Medicine 05/08/25
--- OUTSIDE RECORDS SUMMARY | 2025-07-04 11:00 | XMS_ITS | Data Portability ---
Author Organization [facility], [facility] Address [address] [place] [address] Care Team Providers Care Maintenance Service Technician Name Role Phone SERGE CHAVIS Primary Care Provider [phone] Assessment No assessment recorded. Plan of Treatment [...] Organization Details Recorded Time Osteoarthritis of knee [id number] Active 2023 Abdirahman Kimbrough PA-C [address] [facility], [place], [address], [facility] 4 07:06:53 Problem Notes None recorded. Procedures Surgical History Date Name Laterality Status Provider Name and Address Organization Details Recorded Time 5 Knee Kenalog 40 1cc Injection, Bilateral completed Abdirahman Kimbrough PA-C [address] [facility], [place], [address], [facility] 10/21/2024 08:15:18 4 Knee Kenalog 40 1cc Injection, Bilateral completed Abdirahman Kimbrough PA-C [address], [place], [address], [facility] 07/22/2024 07:59:12 4 Knee Kenalog 40 1cc Injection, Bilateral completed Abdirahman Kimbrough PA-C [address], [place], [address], [facility] 04/23/2024 05:33:06 4 Knee Kenalog 40 1cc Injection, Bilateral completed Abdirahman Kimbrough PA-C [address], [place], [address], [facility] 01/15/2024 07:07:11 Imaging Results None recorded. Procedure Notes None recorded. Medical Equipment None Reported. Allergies Allergen ID Allergen Name Allergen Category Reaction Reaction Severity Criticality Documentation Date Start Date Code Code System Note Provider Name and Address Organization Details Recorded Time 20561 Non-stero idal anti-infl ammatory agent (substanc e) medicatio n Not available Not available Not available 11/06/20232022 46421 5008 SNOMED Not Available [facility] 4 13:16:37 07392 Augmentin medicatio n Not available Not available Not available 11/06/20232015 36662 2 RxNorm Not Available [facility] 4 13:16:37 98013 erythromy florentin medicatio n Not available Not available Not available 11/06/20232020 4053 RxNorm Not Available [facility] 4 13:16:37 02494 aspirin medicatio n Not available Not available Not available 11/06/20232015 1191 RxNorm Not Available [facility] 4 13:16:38 31478 Substance with sulfonami de structure and antibacte rial mechanism of action (substanc e) medicatio n Not available Not available Not available 11/06/20232015 04257 8003 SNOMED Not Available [facility] 4 13:16:38 Medications Name Sig Start [...] ONCE DIRECTED BY [facility] AT [facility] active Not Available Not Available No [...] Updated DateTime 10/21/2024 157.48 cm 32 kg/m2 66314.66 g Abdirahman Kimbrough PA-C [address] [place] [address], [address], [facility] 10/21/2024 13:49:42 Date Recorded Body height Body mass index (BMI) Body weight Provider Name and Address Organization Details Last Updated DateTime 01/15/2024 157.48 cm 32 kg/m2 19250.66 g Abdirahman Kimbrough PA-C [address] [place] [address], [address], [facility] 01/15/2024 11:05:53 Date Recorded Body height Body mass index (BMI) Body weight Provider Name and Address Organization Details Last Updated DateTime 04/23/2024 157.48 cm 32 kg/m2 31757.66 g Abdirahman Kimbrough PA-C [address] [facility], [place], [address], [facility] 04/23/2024 11:16:23 Date Recorded Body height Body mass index (BMI) Body weight Provider Name and Address Organization Details Last Updated DateTime 07/22/2024 157.48 cm 32 kg/m2 88228.66 g Abdirahman Kimbrough PA-C [address] [place] [address], [address], [facility] 07/22/2024 12:49:40 Social History None recorded. Functional Status None recorded. Mental Status None recorded. Family History Nothing Reported. Medical History Condition Response Gastrointestinal Disease Y Heart Attack (MS) Y Kidney/Bladder Problems Y Gynecological HistoryNo gynecological history recorded. Obstetrics History GPAL:G 0 P 0 0 0 0 Past Encounters Encounter ID Performer Location Encounter Start Date Encounter Closed Date Diagnosis/Indication Diagnosis SNOMED-CT Code Diagnosis ICD10 Code Diagnosis IMO Codes Diagnosis Note [id number] Abdirahman Kimbrough PA-C [place] [address] [place] [address] 01/15/2024 10:44:22 01/25/2024 13:44:56 Osteoarthritis of knee 278968345 M17.9 [id number] Abdirahman Kimbrough PA-C [place] [address] [place] [address] 04/23/2024 10:57:15 05/10/2024 08:44:54 Osteoarthritis of knee 583307386 M17.9 [id number] Abdirahman Kimbrough PA-C [place] [address] [place] [address] 07/22/2024 12:38:38 08/08/2024 15:29:32 Osteoarthritis of knee 310377018 M17.9 [id number] Abdirahman Kimbrough PA-C [facility] [address] [place] [address] 10/21/2024 13:25:27 11/06/2024 11:52:24 Osteoarthritis of knee 719126740 M17.9 Health Concerns Section Related Observation LastModified by Organization Detai ls LastModified Time None Recorded Concern Status LastModified by Organization Details LastModified Time None Recorded Advance Directives Directive None Recorded Payers Insurance Date Sequence Insurance Name Policy Number Policy Mendoza Covered Member ID Mendoza Member ID Guarantor Name 04/23/2024 1 [employer] [place] [id number] Kia Phelps [id number] Kia Phelps 02/04/2025 1 [employer] (MEDICARE REPLACEMENT /ADVANTAGE - PPO) [id number] Kia Phelps [id number] Kia Phelps Notes Date Note Type Note [...] and oriented x3. Normal insight, affect, and grooming.BIOLOGY LECTURER: Gross motor coordination is intact. No spasticity or clonus noted.Extremities: Calves are soft and nontender. Skin on lower extremities is intact. Palpable pedal pulses bilaterally. Orthopedic Exam:Bilateral knees Restricted range of motion good anterior-posterior stability no laxity valgus or varus stressing. Exquisite medial joint line tenderness with patellofemoral crepitance noted, 1+ effusion, 4/5 strength. X-rays report: 4 views ordered and independently reviewed at [facility] of the taken previously show [...] attending cardiac rehabilitation. Abdirahman Kimbrough PA-C [address] [facility] [address], [place], [address], [facility] 01/15/2024 11:25:26 04/23/2024 text/html [...] and oriented x3. Normal insight, affect, and grooming.BIOLOGY LECTURER: Gross motor coordination is intact. No spasticity or clonus noted.Extremities: Calves are soft and nontender. Skin on lower extremities is intact. Palpable pedal pulses bilaterally. Orthopedic Exam:Bilateral knees Restricted range of motion good anterior-posterior stability no laxity valgus or varus stressing. Exquisite medial joint line tenderness with patellofemoral crepitance noted, 1+ effusion, 4/5 strength. X-rays report: 4 views ordered and independently reviewed at [facility] of the taken previously show [...] currently attending cardiac rehabilitation. Abdirahman Kimbrough PA-C [address] [place] [address] [address], [place], [address], [facility] 04/23/2024 11:34:22 07/22/2024 text/html [...] is scheduled to see a specialist at [facility] going to require her to have probably another operation for her colostomy and therefore likely going to delay her knee arthroplasty until sometime in the late spring. PMH/PSH/MEDS/ALL/FMH /SOC HX/ ROS: All reviewed in detail per my medical intake sheetGeneral Exam: Vitals signs as noted below, antalgic gait noted.Mental Status: Alert and oriented x3. Normal insight, affect, and grooming.BIOLOGY LECTURER: Gross motor coordination is intact. No spasticity or clonus noted.Extremities: Calves are soft and nontender. Skin on lower extremities is intact. Palpable pedal pulses bilaterally.Orthoped ic Exam:Bilateral knees Restricted range of motion good anterior-posterior stability no laxity valgus or varus stressing. Exquisite medial joint line tenderness with patellofemoral crepitance noted, 1+ effusion, 4/5 strength. X-rays report: 4 views ordered and independently reviewed at [facility] of the taken previously show [...] currently attending cardiac rehabilitation. Abdirahman Kimbrough PA-C [address] [place] [address] [address], [place], [address], [facility] 07/22/2024 13:07:57 10/21/2024 text/html [...] is scheduled to see a specialist at [facility] in going to require her to have [...] 4 views ordered and independently reviewed at [facility] of the taken previously show [...] attending cardiac rehabilitation. Abdirahman Kimbrough PA-C [address], [place], [address], [facility] 10/21/2024 14:54:05 OBGyn Episode No OBEpisode recorded.
--- OUTSIDE RECORDS SUMMARY | 2025-07-04 11:00 | XMS_ITS | Clinical Summary ---
Author Organization [facility] Address [address] [place] [address] Phone Care Team Providers Care Program Associate Name Role Phone Nessa Hillman NP Primary Care Provider [phone] Lupillo Sinclair MD Unavailable [phone] Allergies Active Allergy Reactions Criticality Noted Date [...] She did have a cardiac catheterization at [facility] that took place in May 2023 which [...] essential hypertension 06/08/2018 GERD (gastroesophageal reflux disease) Family History Medical History Relation Comments CV [...] Procedure Name Priority Date/Time Associated Diagnosis Comments ENDOSCOPY, SIGMOID 08/15/2024 9: 33 AM EST OUTSIDE LDL Routine 09/11/2015 from Last 3 Months or Most Recently Relevant to Health Maintenance Results * ENDOSCOPY, SIGMOID (08/15/2024 9:33 AM EST) 08/15/2024 9:33 AM EST Narrative Transcriptions Kadeem Lehman MD - 08/15/2024 9:33 AM EST [facility] Gastrointestinal Endoscopy Unit Patient Name: Kia Phelps Exam Date: 08/15/2024 9:33 AM Date of : 1960 Admit Type: Outpatient Age: 64 Room: [place] [address] Gender: Female Note Status: Finalized Attending MD: [...] procedure. Anesthesia administered sedation. 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 It is not the complete legal health record.[facility]
--- OUTSIDE RECORDS SUMMARY | 2025-07-04 11:01 | XMS_ITS | Encounter Summary ---
Author Organization [facility] Address [address] [place] [address] Phone Care Team Providers Care Optoelectronic Technician Name Role Phone Nessa Hillman NP Primary Care Provider [phone] Lupillo Sinclair MD Unavailable [phone] Encounter Details Date Type Department Care Team (Late st Contact Info) Description 01/31/2025 Procedure Pass [facility] [place] [address] [facility], [address] [place] [address] Social History Tobacco Use Types Packs/Day Years [...] documented as of this encounter Care Teams Optoelectronic Technician Relationship Specialty Start Date End Date Nessa Hillman NP [address] [place] [address] PCP - General Nurse Practitioner 06/03/24 Lupillo Sinclair MD [address] [address] Cardiology 12/24/24 documented as of this encounter Additional Source Comments The information contained in this document represents components of the legal health record. It is not the complete legal health record.[facility]
--- OUTSIDE RECORDS SUMMARY | 2025-07-04 11:01 | XMS_ITS | Encounter Summary ---
Author Organization [facility] Address [address] [place] [address] Phone Care Team Providers Care Campaign Marketing Specialist Name Role Phone Nessa Hillman NP Primary Care Provider +1- [phone] Lupillo Sinclair MD Unavailable [phone] Encounter Details Date Type Department Care Team (Late st Contact Info) Description 01/26/2025 Procedure Pass [facility] [place] Imaging - RF/IR [address] [facility], 2nd [place] [address] Social History Tobacco Use Types Packs/Day Years [...] 12:00 AM EDT Lulu Zhang RN * [place] Suicide Severity Rating Scale (Screener/Recent Self-Report) Question [...] documented as of this encounter Care Teams Campaign Marketing Specialist Relationship Specialty Start Date End Date Nessa Hillman NP [address] [place] [address] PCP - General Nurse Practitioner 06/03/24 Lupillo Sinclair MD [address] [address] Cardiology 12/24/24 documented as of this encounter Additional Source Comments The information contained in this document represents components of the legal health record. It is not the complete legal health record.[facility]
--- OUTSIDE RECORDS SUMMARY | 2025-07-04 11:01 | XMS_ITS | Encounter Summary ---
Author Organization [facility] Address [address] [place] [address] Phone Care Team Providers Care Machine Preservative Filler Name Role Phone Nessa Hillman NP Primary Care Provider +1- [phone] Lupillo Sinclair MD Unavailable [phone] Encounter Details Date Type Department Care Team (Late st Contact Info) Description 02/04/2025 Procedure Pass [facility] [place] Imaging - RF/IR [address] [facility], 2nd [place] [address] Social History Tobacco Use Types Packs/Day Years [...] as of this encounter Care Teams Machine Preservative Filler Relationship Specialty Start Date End Date Nessa Hillman NP [address] [place] [address] PCP - General Nurse Practitioner 06/03/24 Lupillo Sinclair MD [address] [address] Cardiology 12/24/24 documented as of this encounter Additional Source Comments The information contained in this document represents components of the legal health record. It is not the complete legal health record.[facility]
--- OUTSIDE RECORDS SUMMARY | 2025-07-04 11:01 | XMS_ITS | Encounter Summary ---
Author Organization [facility] Address [address] [facility] [address] [place] [address] Phone Care Team Providers Care Street Department Dispatcher Name Role Phone Nessa Hillman NP Primary Care Provider +1- [phone] Lupillo Sinclair MD Unavailable [phone] Encounter Details Date Type Department Care Team (Late st Contact Info) Description 01/25/2025 Procedure Pass [facility] [place] Cardiac US [address] [place] [address] Social History Tobacco Use Types Packs/Day Years [...] 12:00 AM EDT Lulu Zhang RN * [place] Suicide Severity Rating Scale (Screener/Recent Self-Report) Question [...] documented as of this encounter Care Teams Street Department Dispatcher Relationship Specialty Start Date End Date Nessa Hillman NP [address] [place] [address] PCP - General Nurse Practitioner 06/03/24 Lupillo Sinclair MD [address] [address] Cardiology 12/24/24 documented as of this encounter Additional Source Comments The information contained in this document represents components of the legal health record. It is not the complete legal health record.[facility]
--- OUTSIDE RECORDS SUMMARY | 2025-07-04 11:01 | XMS_ITS | Encounter Summary ---
Author Organization [facility] Address [address] [place] [address] [place] [address] Phone Care Team Providers Care Pressure Tank Operator Name Role Phone Deion Asencio MD Primary Care Provider + Nessa Hillman NP Primary Care Provider +1- [phone] Lupillo Sinclair MD Unavailable Encounter Details Date Type Department Care Team (Late st Contact Info) Description 07/26/2023 Procedure Pass [facility] [place] [address] Social History Tobacco Use Types [...] documented as of this encounter Care Teams Pressure Tank Operator Relationship Specialty Start Date End Date Deion Asencio MD [address] [place] [address] PCP - General Family Medicine 06/08/18 06/02/24 Nessa Hillman NP [address] [place] [address] PCP - General Nurse Practitioner 06/03/24 Lupillo Sinclair MD [address] [place] [address] Cardiology 12/24/24 documented as of this encounter Additional Source Comments The information contained in this document represents components of the legal health record. It is not the complete legal health record.[facility]
--- OUTSIDE RECORDS SUMMARY | 2025-07-04 11:01 | XMS_ITS | Encounter Summary ---
Author Organization [facility] Address [address] [place] [address] Phone Care Team Providers Care Seismograph Operator Name Role Phone Nessa Hillman NP Primary Care Provider +1- [phone] Lupillo Sinclair MD Unavailable [phone] Encounter Details Date Type Department Care Team (Late st Contact Info) Description 01/26/2025 Procedure Pass [facility] [place] Imaging - RF/IR [address] [facility], 2nd [place] [address] Social History Tobacco Use Types Packs/Day Years [...] 12:00 AM EDT Lulu Zhang RN * [place] Suicide Severity Rating Scale (Screener/Recent Self-Report) Question [...] documented as of this encounter Care Teams Seismograph Operator Relationship Specialty Start Date End Date Nessa Hillman NP [address] [place] [address] PCP - General Nurse Practitioner 06/03/24 Lupillo Sinclair MD [address] [address] Cardiology 12/24/24 documented as of this encounter Additional Source Comments The information contained in this document represents components of the legal health record. It is not the complete legal health record.[facility]
--- OUTSIDE RECORDS SUMMARY | 2025-07-04 11:01 | XMS_ITS | Encounter Summary ---
Author Organization [facility] Address [address] [place] [address] Phone Care Team Providers Care Physical Therapy Manager Name Role Phone Nessa Hillman NP Primary Care Provider +1- [phone] Lupillo Sinclair MD Unavailable [phone] Encounter Details Date Type Department Care Team (Late st Contact Info) Description 01/31/2025 Procedure Pass [facility] [place] Imaging - RF/IR [address] [facility], 2nd [place] [address] Social History Tobacco Use Types Packs/Day Years [...] documented as of this encounter Care Teams Physical Therapy Manager Relationship Specialty Start Date End Date Nessa Hillman NP [address] [place] [address] PCP - General Nurse Practitioner 06/03/24 Lupillo Sinclair MD [address] [address] Cardiology 12/24/24 documented as of this encounter Additional Source Comments The information contained in this document represents components of the legal health record. It is not the complete legal health record.[facility]
--- OUTSIDE RECORDS SUMMARY | 2025-07-04 11:01 | XMS_ITS | Encounter Summary ---
Author Organization [facility] Address [address] [place] [address] Phone Care Team Providers Care Ornamenter Hand Name Role Phone Nessa Hillman NP Primary Care Provider +1- [phone] Lupillo Sinclair MD Unavailable [phone] Encounter Details Date Type Department Care Team (Late st Contact Info) Description 01/26/2025 Procedure Pass [facility] [place] - RF/IR [address] [facility], 2nd [place] [address] Social History Tobacco Use Types Packs/Day Years [...] 12:00 AM EDT Lulu Zhang RN * [place] Suicide Severity Rating Scale (Screener/Recent Self-Report) Question [...] documented as of this encounter Care Teams Ornamenter Hand Relationship Specialty Start Date End Date Nessa Hillman NP [address] [place] [address] PCP - General Nurse Practitioner 06/03/24 Lupillo Sinclair MD [address] [address] Cardiology 12/24/24 documented as of this encounter Additional Source Comments The information contained in this document represents components of the legal health record. It is not the complete legal health record.[facility]
--- OUTSIDE RECORDS SUMMARY | 2025-07-04 11:01 | XMS_ITS | Encounter Summary ---
Author Organization [facility] Address [address] [place] [address] Phone Care Team Providers Care Biological Photographer Name Role Phone Nessa Hillman NP Primary Care Provider +1- [phone] Lupillo Sinclair MD Unavailable [phone] Encounter Details Date Type Department Care Team (Late st Contact Info) Description 02/03/2025 Procedure Pass [facility] [place] [address] [facility], 6th [place] [address] Social History Tobacco Use Types Packs/Day Years [...] documented as of this encounter Care Teams Biological Photographer Relationship Specialty Start Date End Date Nessa Hillman NP [address] [place] [address] PCP - General Nurse Practitioner 06/03/24 Lupillo Sinclair MD [address] [address] Cardiology 12/24/24 documented as of this encounter Additional Source Comments The information contained in this document represents components of the legal health record. It is not the complete legal health record.[facility]
--- OUTSIDE RECORDS SUMMARY | 2025-07-04 11:01 | XMS_ITS | Encounter Summary ---
Author Organization [facility] Address [address] [place] [address] [place] [address] Phone Care Team Providers Care Solar Thermal Technician Name Role Phone Deion Asencio MD Primary Care Provider + Nessa Hillman NP Primary Care Provider +1- [phone] Lupillo Sinclair MD Unavailable [phone] Encounter Details Date Type Department Care Team (Late st Contact Info) Description 08/03/2023 Procedure Pass Non-Invasive Cardiology [address] [place], [place] [address] Social History Tobacco Use Types Packs/Day Years [...] documented as of this encounter Care Teams Solar Thermal Technician Relationship Specialty Start Date End Date Deion Asencio MD [address] [place] [address] PCP - General Family Medicine 06/08/18 06/02/24 Nessa Hillman NP [address] [place] [address] PCP - General Nurse Practitioner 06/03/24 Lupillo Sinclair MD [address] [place] [address] Cardiology 12/24/24 documented as of this encounter Additional Source Comments The information contained in this document represents components of the legal health record. It is not the complete legal health record.[facility]
--- OUTSIDE RECORDS SUMMARY | 2025-07-04 11:02 | XMS_ITS | Encounter Summary ---
Author Organization [facility] Address [address] [place] [address] Phone Care Team Providers Care Conductor And Engineer Name Role Phone Nessa Hillman NP Primary Care Provider +1- [phone] Lupillo Sinclair MD Unavailable [phone] Encounter Details Date Type Department Care Team (Late st Contact Info) Description 02/17/2025 Procedure [place] [facility] [place] [facility] [place] - RF/IR [address] [place] [address] Social History Tobacco Use Types Packs/Day Years [...] documented as of this encounter Care Teams Conductor And Engineer Relationship Specialty Start Date End Date Nessa Hillman NP [address] [place] [address] PCP - General Nurse Practitioner 06/03/24 Lupillo Sinclair MD [address] [address] Cardiology 12/24/24 documented as of this encounter Additional Source Comments The information contained in this document represents components of the legal health record. It is not the complete legal health record.[facility]
--- OUTSIDE RECORDS SUMMARY | 2025-07-04 11:02 | XMS_ITS | Encounter Summary ---
Author Organization [facility] Address [address] [place] [address] Phone Care Team Providers Care Dye Range Operator Name Role Phone Nessa Hillman NP Primary Care Provider +1- [phone] Lupillo Sinclair MD Unavailable [phone] Encounter Details Date Type Department Care Team (Late st Contact Info) Description 01/07/2025 Procedure Pass [facility] [place] [facility] [address] [place] [phone] Social History Tobacco Use Types Packs/Day Years [...] 1:00 PM EDT Shelbi Jimenez, RN * [place] Suicide Severity Rating Scale (Screener/Recent Self-Report) Question [...] documented as of this encounter Care Teams Dye Range Operator Relationship Specialty Start Date End Date Nessa Hillman NP [address] [place] [address] PCP - General Nurse Practitioner 06/03/24 Lupillo Sinclair MD [address] [place] [address] Cardiology 12/24/24 documented as of this encounter Additional Source Comments The information contained in this document represents components of the legal health record. It is not the complete legal health record.[facility]
--- OUTSIDE RECORDS SUMMARY | 2025-07-04 11:02 | XMS_ITS | Encounter Summary ---
Author Organization [facility] Address [address] [place] [address] Phone Care Team Providers Care Heel Seat Laster Name Role Phone Nessa Hillman NP Primary Care Provider +1- [phone] Lupillo Sinclair MD Unavailable [phone] Encounter Details Date Type Department Care Team (Late st Contact Info) Description 01/26/2025 Procedure [place] [facility] [place] [address] [facility], 6th [place] [address] Social History Tobacco Use Types Packs/Day Years [...] 12:00 AM EDT Lulu Zhang RN * [place] Suicide Severity Rating Scale (Screener/Recent Self-Report) Question [...] documented as of this encounter Care Teams Heel Seat Laster Relationship Specialty Start Date End Date Nessa Hillman NP [address] [place] [address] PCP - General Nurse Practitioner 06/03/24 Lupillo Sinclair MD [address] [address] Cardiology 12/24/24 documented as of this encounter Additional Source Comments The information contained in this document represents components of the legal health record. It is not the complete legal health record.[facility]
--- OUTSIDE RECORDS SUMMARY | 2025-07-04 11:02 | XMS_ITS | Encounter Summary ---
Author Organization [facility] Address [address] [place] [address] Phone Care Team Providers Care Certified Prosthetist/Orthotist Name Role Phone Nessa Hillman NP Primary Care Provider +1- [phone] Lupillo Sinclair MD Unavailable [phone] Encounter Details Date Type Department Care Team ([facility] st Contact Info) Description 02/17/2025 Procedure Pass [facility] [place] [facility]ter Lab [address] [facility], 5th [address], [address] [place] [address] Social History Tobacco Use Types Packs/Day Years [...] documented as of this encounter Care Teams Certified Prosthetist/Orthotist Relationship Specialty Start Date End Date Nessa Hillman NP [address] [place] [address] PCP - General Nurse Practitioner 06/03/24 Lupillo Sinclair MD [address] [address] Cardiology 12/24/24 documented as of this encounter Additional Source Comments The information contained in this document represents components of the legal health record. It is not the complete legal health record.[facility]
--- OUTSIDE RECORDS SUMMARY | 2025-07-04 11:02 | XMS_ITS ---
Author Organization [facility] Care Team Providers Care Document Reviewer Name Role Phone Mayur, Pippa Mcelroy Unavailable Unavailable Unique Fritz Unavailable Unavailable Joanna Webster Unavailable Unavailable Luzmaria Ruiz Unavailable Unavailable Allergies and adverse reactions Code CodeSystem Substance Reaction Severity StartDate Concern Status 1191 RXNORM Aspirin Unknown 05/05/2020 active Augmentin Unknown 05/05/2020 active 4053 RXNORM Erythromycin Unknown 05/05/2020 active 5640 RXNORM Ibuprofen Unknown 05/05/2020 active Iodinated radio contrast dye Unknown 05/05/2020 active Shell Fish Unknown 05/05/[address] Sulfa Antibiotics Unknown 05/05/2020 active Care Team Name Role Address Phone Organization Dates Pippa Merchant PCP [address] [place] [address], [facility] (Office): : [facility] 05/05/2020 - 05/07/2020 Unique Fritz [address] [place] [address], [facility] (Office): : [facility] 05/05/2020 - 05/07/2020 Joanna Webster [address] [place] [address], [facility] (Office): : [facility] 05/05/2020 - 05/07/2020 Luzmaria Ruiz [address] [place] [address], [address], [place] (Office): : [facility] 05/05/2020 - 05/07/2020 [...] 1 PAIN IN RIGHT LOWER LEG 05/06/[address] active 2 ESSENTIAL (PRIMARY) HYPERTENSION 05/05/[address] active 3 GASTRO-ESOPHAGEAL REFLUX DISEASE WITHOUT ESOPHAGITIS 05/05/[address] active 4 HYPERLIPIDEMIA, UNSPECIFIED 05/05/[address] active 5 MUSCLE WEAKNESS (GENERALIZED) 05/05/[address] active 6 OTHER ABNORMALITIES OF GAIT AND MOBILITY 05/05/[address] active 7 OTHER SPECIFIED ARTHRITIS, MULTIPLE SITES 05/05/[address] active 8 PRIMARY OSTEOARTHRITIS, UNSPECIFIED SITE 05/05/[address] active 9 UNSTEADINESS ON FEET 05/05/[address] active 10 WEAKNESS 05/05/[address] active Reason for Referral No Reasons for Referral Entered Social History Social History Observation Description Start Date End Date Code Code System Current Smoking Status Tobacco smoking consumption unknown 935378176 SNOMED CT Sex Assigned At Female 1960 88916-0 [facility] Gender Identity Sexual Orientation Vital Signs Code Code System Vitals Name Values and Units Timing Information 9279-1 [facility] Respiratory Rate Value=16.0 Units=/m in 05/07/2020 8462-4 [facility] Blood Pressure-Diastolic Value=76 Un its=mmHg 05/07/2020 8480-6 [facility] Blood Pressure-Systolic Kvrml=027 Un its=mmHg 05/07/2020 8310-5 [facility] Body Temperature Value=97.3 Units= F 05/07/2020 8867-4 [facility] Heart rate Value=60.0 Units=/min 11/2019 71630-5 [facility] O2 % BldC Oximetry Value=95.0 Units= % 05/07/2020 21721-9 [facility] Pain Level Value=0.0 05/07/2020
--- OUTSIDE RECORDS SUMMARY | 2025-07-04 11:02 | XMS_ITS | Encounter Summary ---
Author Organization [facility] Address [address] [place] [address] Phone Care Team Providers Care Mirror Department Supervisor Name Role Phone Nessa Hillman NP Primary Care Provider +1- [phone] Lupillo Sinclair MD Unavailable [phone] Encounter Details Date Type Department Care Team (Late st Contact Info) Description 06/12/[address] Imaging - [address], [address] [place] [id number] Social History Tobacco Use Types Packs/Day Years [...] documented as of this encounter Care Teams Mirror Department Supervisor Relationship Specialty Start Date End Date Nessa Hillman NP [address] [place] [address] PCP - General Nurse Practitioner 06/03/24 Lupillo Sinclair MD [address] [place] [address] Cardiology 12/24/24 documented as of this encounter Additional Source Comments The information contained in this document represents components of the legal health record. It is not the complete legal health record.[facility]
--- OUTSIDE RECORDS SUMMARY | 2025-07-04 11:02 | XMS_ITS | Encounter Summary ---
Author Organization [facility] Address [address] [place] [address] Phone Care Team Providers Care Inserter Promotional Item Name Role Phone Nessa Hillman NP Primary Care Provider +1- [phone] Lupillo Sinclair MD Unavailable [phone] Encounter Details Date Type Department Care Team (Late st Contact Info) Description 08/15/2024 Procedure Pass [facility] [place] [facility] [address] [place] [address] Social History Tobacco Use Types [...] documented as of this encounter Care Teams Inserter Promotional Item Relationship Specialty Start Date End Date Nessa Hillman NP [address] [place] [address] PCP - General Nurse Practitioner 06/03/24 Lupillo Sinclair MD [address] [address] Cardiology 12/24/24 documented as of this encounter Additional Source Comments The information contained in this document represents components of the legal health record. It is not the complete legal health record.[facility]
== END 2025-07-04 10:38 | disposition home or self-care (01) ==
LOC: HO.HGI 09:50
PROVIDERS: PCP Internal Medicine; Visit Provider Nurse Practitioner Family
DX: K63.2 Fistula of intestine (principal); K86.1 Other chronic pancreatitis; Z93.2 Ileostomy status; K21.9 Gastro-esophageal reflux disease without esophagitis
CPT/HCPCS: 99214; G2211

== ENCOUNTER → 2025-07-04 09:49 | Outpatient (BNVA) | payer MEDICARE, SELFPAY | PROVIDERS: PCP Internal Medicine; Visit Provider Nurse Practitioner Family | DX: Z93.2 Ileostomy status (principal); T81.49XA Infection following a procedure, other surgical site, initial encounter; K86.1 Other chronic pancreatitis; R63.4 Abnormal weight loss; Z87.19 Personal history of other diseases of the digestive system | CPT/HCPCS: 99212 ==

== ENCOUNTER 2025-07-14 15:32 | Outpatient (REF) | payer MEDICARE, SELFPAY ==
[2025-07-14 16:29] LABS: Anion Gap 13 (12-20); Blood Urea Nitrogen 41 mg/dL (9-16); Calcium 8.6 mg/dL (8.4-10.2); Carbon Dioxide 19 mmol/L (22-29); Chloride 106 mmol/L (96-108); Estimated Glomerular Filt Rate 49; Magnesium 1.5 mg/dL (1.6-2.6); Potassium 3.4 mmol/L (3.3-5.1); Sodium 135 mmol/L (135-145)
--- OUTSIDE RECORDS SUMMARY | 2025-07-14 17:36 | XMS_ITS | Data Portability ---
Author Organization [facility] Address [address] [place] [address] Care Team Providers Care Research Group Director Name Role Phone SEGRE CHAVIS Primary Care Provider Assessment No assessment [...] Organization Details Recorded Time Osteoarthritis of knee [id number] Active 2023 Abdirahman Kimbrough PA-C [address] [facility], [place], [address], [facility] 4 07:06:53 Problem Notes None recorded. Procedures Surgical History Date Name Laterality Status Provider Name and Address Organization Details Recorded Time 5 Knee Kenalog 40 1cc Injection, Bilateral completed Abdirahman Kimbrough PA-C [address] [facility], [place], [address], [facility] 10/21/2024 08:15:18 4 Knee Kenalog 40 1cc Injection, Bilateral completed Abdirahman Kimbrough PA-C [address], [place], [address], [facility] 07/22/2024 07:59:12 4 Knee Kenalog 40 1cc Injection, Bilateral completed Abdirahman Kimbrough PA-C [address], [place], [address], [facility] 04/23/2024 05:33:06 4 Knee Kenalog 40 1cc Injection, Bilateral completed Abdirahman Kimbrough PA-C [address], [place], [address], [facility] 01/15/2024 07:07:11 Imaging Results None recorded. Procedure Notes None recorded. Medical Equipment None Reported. Allergies Allergen ID Allergen Name Allergen Category Reaction Reaction Severity Criticality Documentation Date Start Date Code Code System Note Provider Name and Address Organization Details Recorded Time 31018 Non-stero idal anti-infl ammatory agent (substanc e) medicatio n Not available Not available Not available 11/06/20232022 35791 5008 SNOMED Not Available [facility] 4 13:16:37 65137 Augmentin medicatio n Not available Not available Not available 11/06/20232015 75983 2 RxNorm Not Available [facility] 4 13:16:37 32769 erythromy florentin medicatio n Not available Not available Not available 11/06/20232020 4053 RxNorm Not Available [facility] 4 13:16:37 70862 aspirin medicatio n Not available Not available Not available 11/06/20232015 1191 RxNorm Not Available [facility] 4 13:16:38 28366 Substance with sulfonami de structure and antibacte rial mechanism of action (substanc e) medicatio n Not available Not available Not available 11/06/20232015 63387 8003 SNOMED Not Available [facility] 4 13:16:38 Medications Name Sig Start [...] ONCE DIRECTED BY [facility] active Not Available Not Available No t [...] Updated DateTime 10/21/2024 157.48 cm 32 kg/m2 97614.66 g Abdirahman Kimbrough PA-C [address] [facility], [place], [address], [facility] 10/21/2024 13:49:42 Date Recorded Body height Body mass index (BMI) Body weight Provider Name and Address Organization Details Last Updated DateTime 01/15/2024 157.48 cm 32 kg/m2 21809.66 g Abdirahman Kimbrough PA-C [address] [employer] [address] [place] [address], [address], [facility] 01/15/2024 11:05:53 Date Recorded Body height Body mass index (BMI) Body weight Provider Name and Address Organization Details Last Updated DateTime 04/23/2024 157.48 cm 32 kg/m2 74491.66 g Abdirahman Kimbrough PA-C [address] [facility], [place], [address], [facility] 04/23/2024 11:16:23 Date Recorded Body height Body mass index (BMI) Body weight Provider Name and Address Organization Details Last Updated DateTime 07/22/2024 157.48 cm 32 kg/m2 19170.66 g Abdirahman Kimbrough PA-C [address] [employer] [address] [place] [address], [address], [facility] 07/22/2024 12:49:40 Social History None recorded. Functional Status None recorded. Mental Status None recorded. Family History Nothing Reported. Medical History Condition Response Gastrointestinal Disease Y Kidney/Bladder Problems Y Heart Attack ([place]) Y Gynecological HistoryNo gynecological history recorded. Obstetrics History GPAL:G 0 P 0 0 0 0 Past Encounters Encounter ID Performer Location Encounter Start Date Encounter Closed Date Diagnosis/Indication Diagnosis SNOMED-CT Code Diagnosis ICD10 Code Diagnosis IMO Codes Diagnosis Note [id number] Abdirahman Kimbrough PA-C [address] [place] [address] 01/15/2024 10:44:22 01/25/2024 13:44:56 Osteoarthritis of knee 770743468 M17.9 [id number] Abdirahman Kimbrough PA-C [address] [place] [address] 04/23/2024 10:57:15 05/10/2024 08:44:54 Osteoarthritis of knee 935127027 M17.9 [id number] Abdirahman Kimbrough PA-C [address] [place] [address] 07/22/2024 12:38:38 08/08/2024 15:29:32 Osteoarthritis of knee 655429438 M17.9 [id number] Abdirahman Kimbrough PA-C [facility] [address] [place] [address] 10/21/2024 13:25:27 11/06/2024 11:52:24 Osteoarthritis of knee 580037051 M17.9 Health Concerns Section Related Observation LastModified by Organization Detai ls LastModified Time None Recorded Concern Status LastModified by Organization Details LastModified Time None Recorded Advance Directives Directive None Recorded Payers Insurance Date Sequence Insurance Name Policy Number Policy Mendoza Covered Member ID Mendoza Member ID Guarantor Name 04/23/2024 1 [id number] [id number] Kia Phelps [id number] Kia Phelps 02/04/2025 1 [employer] (MEDICARE REPLACEMENT /ADVANTAGE - PPO) [id number] Kia Phelps [id number] Kia Phelps Notes Date Note Type Note [...] and oriented x3. Normal insight, affect, and grooming.INFORMATION TECHNOLOGY OFFICER: Gross motor coordination is intact. No spasticity or clonus noted.Extremities: Calves are soft and nontender. Skin on lower extremities is intact. Palpable pedal pulses bilaterally. Orthopedic Exam:Bilateral knees Restricted range of motion good anterior-posterior stability no laxity valgus or varus stressing. Exquisite medial joint line tenderness with patellofemoral crepitance noted, 1+ effusion, 4/5 strength. X-rays report: 4 views ordered and independently reviewed at [facility] of the taken previously show advanced [...] attending cardiac rehabilitation. Abdirahman Kimbrough PA-C [address], [place], [address], [facility] 01/15/2024 11:25:26 04/23/2024 text/html [...] and oriented x3. Normal insight, affect, and grooming.INFORMATION TECHNOLOGY OFFICER: Gross motor coordination is intact. No spasticity or clonus noted.Extremities: Calves are soft and nontender. Skin on lower extremities is intact. Palpable pedal pulses bilaterally. Orthopedic Exam:Bilateral knees Restricted range of motion good anterior-posterior stability no laxity valgus or varus stressing. Exquisite medial joint line tenderness with patellofemoral crepitance noted, 1+ effusion, 4/5 strength. X-rays report: 4 views ordered and independently reviewed at [facility] of the taken previously show advanced [...] currently attending cardiac rehabilitation. Abdirahman Kimbrough PA-C [address] [place] [address] [address], [place], [address], [facility] 04/23/2024 11:34:22 07/22/2024 text/html [...] is scheduled to see a specialist at [facility] going to require her to have probably another operation for her colostomy and therefore likely going to delay her knee arthroplasty until sometime in the late spring. PMH/PSH/MEDS/ALL/FMH /SOC HX/ ROS: All reviewed in detail per my medical intake sheetGeneral Exam: Vitals signs as noted below, antalgic gait noted.Mental Status: Alert and oriented x3. Normal insight, affect, and grooming.INFORMATION TECHNOLOGY OFFICER: Gross motor coordination is intact. No spasticity or clonus noted.Extremities: Calves are soft and nontender. Skin on lower extremities is intact. Palpable pedal pulses bilaterally.Orthoped ic Exam:Bilateral knees Restricted range of motion good anterior-posterior stability no laxity valgus or varus stressing. Exquisite medial joint line tenderness with patellofemoral crepitance noted, 1+ effusion, 4/5 strength. X-rays report: 4 views ordered and independently reviewed at [facility] of the taken previously show advanced [...] currently attending cardiac rehabilitation. Abdirahman Kimbrough PA-C [address] [place] [address] [address], [place], [address], [facility] 07/22/2024 13:07:57 10/21/2024 text/html [...] is scheduled to see a specialist at [facility] in going to require her to have [...] 4 views ordered and independently reviewed at [facility] of the taken previously show advanced [...] attending cardiac rehabilitation. Abdirahman Kimbrough PA-C [address], [place], [address], [facility] 10/21/2024 14:54:05 OBGyn Episode No OBEpisode recorded.
--- OUTSIDE RECORDS SUMMARY | 2025-07-14 17:36 | XMS_ITS | Clinical Summary ---
Author Organization [facility] Address [address] [place] [address] Phone Care Team Providers Care Clamper Name Role Phone Nessa Hillman NP Primary Care Provider [phone]- [phone] Lupillo Sinclair MD Unavailable [phone] Allergies Active Allergy Reactions Criticality Noted Date [...] She did have a cardiac catheterization at [facility] that took place in May 2023 [...] Lehman MD - 08/15/2024 9:33 AM EST [facility] Gastrointestinal Endoscopy Unit Patient Name: Kia Phelps Exam Date: 08/15/2024 9:33 AM Date of : 1960 Admit Type: Outpatient Age: 64 Room: [place] [id number] Gender: Female Note Status: Finalized Attending MD: [...] procedure. Anesthesia administered sedation. Kadeem Lehman MD, [id number] 08/15/2024 10:16:46 AM Number of Addenda: 0 Note Initiated On: 08/15/2024 9:33 AM Nessa Hillman DIETARY INTERNSHIP GI PROCEDURE ORDERABLES Fi nal Result * [...] Advance Directives For more information, please contact: [phone] (9AM - 5PM [facility], Monday-Monday) Documents on File Type Date Recorded Patient Academic Support Coordinator Expl anation Healthcare Proxy 02/20/2025 4:01 PM * Full Code (Latest Code Status on File) Date Activated Date Inactivated Comments 01/07/2025 6:43 PM Question Answer Comments Code Status Confirmed With: Patient Care Teams Clamper Relationship Specialty Start Date End Date Nessa Hillman NP [address] [place] [address] PCP - General Nurse Practitioner 06/03/24 Lupillo Sinclair MD [address] [address] [place] [address] Cardiology 12/24/24 Additional Source Comments The information contained in this document represents components of the legal health record. It is not the complete legal health record.[facility]
--- OUTSIDE RECORDS SUMMARY | 2025-07-14 17:37 | XMS_ITS | Encounter Summary ---
Author Organization [facility] Address [address] [place] [address] Phone Care Team Providers Care Real Estate Photographer Name Role Phone Nessa Hillman NP Primary Care Provider [phone] Lupillo Sinclair MD Unavailable [phone] Encounter Details Date Type Department Care Team (Late st Contact Info) Description 01/31/2025 Procedure Pass [facility] - RF/IR [address] [facility], [address] [place] [address] Social History Tobacco Use Types Packs/Day Years [...] documented as of this encounter Care Teams Real Estate Photographer Relationship Specialty Start Date End Date Nessa Hillman NP [address] [place] [address] PCP - General Nurse Practitioner 06/03/24 Lupillo Sincliar MD [address] [address] Cardiology 12/24/24 documented as of this encounter Additional Source Comments The information contained in this document represents components of the legal health record. It is not the complete legal health record.[facility]
--- OUTSIDE RECORDS SUMMARY | 2025-07-14 17:37 | XMS_ITS | Encounter Summary ---
Author Organization [facility] Address [address] [facility] [address] [place] [address] Phone Care Team Providers Care Lead Radiation Therapist Name Role Phone Deion Asencio MD Primary Care Provider + Nessa Hillman NP Primary Care Provider [phone] Lupillo Sinclair MD Unavailable [phone] Encounter Details Date Type Department Care Team (Late st Contact Info) Description 07/26/2023 Procedure Pass [facility] [place] [address] Social History Tobacco Use Types [...] documented as of this encounter Care Teams Lead Radiation Therapist Relationship Specialty Start Date End Date Deion Asencio MD [address] [place] [address] PCP - General Family Medicine 06/08/18 06/02/24 Nessa Hillman NP [address] [place] [address] PCP - General Nurse Practitioner 06/03/24 Lupillo Sinclair MD [address] [place] [address] Cardiology 12/24/24 documented as of this encounter Additional Source Comments The information contained in this document represents components of the legal health record. It is not the complete legal health record.[facility]
--- OUTSIDE RECORDS SUMMARY | 2025-07-14 17:37 | XMS_ITS | Encounter Summary ---
Author Organization [facility] Address [address] [place] [address] Phone Care Team Providers Care Mainspring Torque Tester Name Role Phone Nessa Hillman NP Primary Care Provider [phone] Lupillo Sinclair MD Unavailable [phone] Encounter Details Date Type Department Care Team (Late st Contact Info) Description 02/04/2025 Procedure Pass [facility] Imaging - RF/IR [address] [facility], [address]nd [place] [address] Social History Tobacco Use Types Packs/Day Years [...] documented as of this encounter Care Teams Mainspring Torque Tester Relationship Specialty Start Date End Date Nessa Hillman NP [address] [place] [address] PCP - General Nurse Practitioner 06/03/24 Lupillo Sinclair MD [address] [address] Cardiology 12/24/24 documented as of this encounter Additional Source Comments The information contained in this document represents components of the legal health record. It is not the complete legal health record.[facility]
--- OUTSIDE RECORDS SUMMARY | 2025-07-14 17:37 | XMS_ITS | Encounter Summary ---
Author Organization [facility] Address [address] [facility] [address] [place] [address] Phone Care Team Providers Care Dry Boss Name Role Phone Deion Asencio MD Primary Care Provider + Nessa Hillman NP Primary Care Provider [phone] Lupillo Sinclair MD Unavailable [phone] Encounter Details Date Type Department Care Team (Late st Contact Info) Description 08/03/2023 Procedure Pass Non-Invasive Cardiology [address] [place], [place] [id number] Social History Tobacco Use Types Packs/Day Years [...] documented as of this encounter Care Teams Dry Boss Relationship Specialty Start Date End Date Deion Asencio MD [address] [place] [address] PCP - General Family Medicine 06/08/18 06/02/24 Nessa Hillman NP [address] [place] [address] PCP - General Nurse Practitioner 06/03/24 Lupillo Sinclair MD [address] [place] [address] Cardiology 12/24/24 documented as of this encounter Additional Source Comments The information contained in this document represents components of the legal health record. It is not the complete legal health record.[facility]
--- OUTSIDE RECORDS SUMMARY | 2025-07-14 17:37 | XMS_ITS | Clinical Summary ---
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 She should follow-up with instructional media services technician as outpatient, to restart Aldactone, amiodarone and [...] O's, daily weight. She should follow-up with instructional media services technician as outpatient, to restart Aldactone, amiodarone and Farxiga Assessment & Plan (05/28/2025 11:42 AM EDT): CHADS2 score is 2 Last echocardiogram without significant change, normal right and left ventricular size and function, ejection fraction is 58% patient has been receiving IV fluids due to dehydration Will follow-up with instructional media services technician as outpatient, to restart Aldactone, amiodarone and [...] -Continue atorvastatin 20 mg daily - outpatient instructional media services technician will need to address: AC for afib, [...] -Continue atorvastatin 20 mg daily - outpatient instructional media services technician will need to address: AC for afib, [...] O's, daily weight. She should follow-up with instructional media services technician as outpatient, to restart Aldactone, amiodarone and [...] O's, daily weight. She should follow-up with instructional media services technician as outpatient, to restart Aldactone, amiodarone and Farxiga Assessment & Plan (05/28/2025 11:42 AM EDT): CHADS2 score is 2 Last echocardiogram without significant change, normal right and left ventricular size and function, ejection fraction is 58% patient has been receiving IV fluids due to dehydration Will follow-up with instructional media services technician as outpatient, to restart Aldactone, amiodarone and [...] -Continue atorvastatin 20 mg daily - outpatient instructional media services technician will need to address: AC for afib, [...] -Continue atorvastatin 20 mg daily - outpatient instructional media services technician will need to address: AC for afib, [...] with general surgery Dr. Walton on 06/10 [facility] Assessment & Plan (05/29/2025 10:12 AM [...] with general surgery Dr. Walton on 06/10 [facility] Assessment & Plan (05/28/2025 11:53 AM [...] with general surgery Dr. Walton on 06/10 [facility] Assessment & Plan (05/27/2025 8:45 AM [...] O's, daily weight. She should follow-up with instructional media services technician as outpatient, to restart Aldactone, amiodarone and [...] O's, daily weight. She should follow-up with instructional media services technician as outpatient, to restart Aldactone, amiodarone and Farxiga Assessment & Plan (05/28/2025 11:42 AM EDT): CHADS2 score is 2 Last echocardiogram without significant change, normal right and left ventricular size and function, ejection fraction is 58% patient has been receiving IV fluids due to dehydration Will follow-up with instructional media services technician as outpatient, to restart Aldactone, amiodarone and [...] -Continue atorvastatin 20 mg daily - outpatient instructional media services technician will need to address: AC for afib, [...] -Continue atorvastatin 20 mg daily - outpatient instructional media services technician will need to address: AC for afib, [...] as 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 She presented on 04 07 at [facility] with concerns of draining from her fistula [...] drainage. She presented on 04 07 at [facility] with concerns of draining from her fistula [...] drainage. She presented on 04 07 at [facility] with concerns of draining from her fistula [...] drainage. She presented on 04 07 at [facility] with concerns of draining from her fistula [...] drainage. She presented on 04 07 at [facility] with concerns of draining from her fistula [...] drainage. She presented on 04 07 at [facility] with concerns of draining from her fistula [...] with antibiotics. 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 Walton on 06/10 [facility] Assessment & Plan (05/29/2025 10:12 AM [...] with general surgery Dr. Walton on 06/10 [facility] Assessment & Plan (05/28/2025 11:53 AM [...] with general surgery Dr. Walton on 06/10 [facility] Assessment & Plan (05/27/2025 8:45 AM [...] drainage. She presented on 04 07 at [facility] with concerns of draining from her fistula [...] drainage. She presented on 04 07 at [facility] with concerns of draining from her fistula [...] drainage. She presented on 04 07 at [facility] with concerns of draining from her fistula [...] drainage. She presented on 04 07 at [facility] with concerns of draining from her fistula [...] drainage. She presented on 04 07 at [facility] with concerns of draining from her fistula [...] drainage. She presented on 04 07 at [facility] with concerns of draining from her fistula [...] with antibiotics. 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 who presented to [facility] on 04/27/2025 with increased drainage from fistula [...] multiple admission and draining who presented to [facility] on 04/27/2025 with increased drainage from fistula [...] multiple admission and draining who presented to [facility] on 04/27/2025 with increased drainage from fistula [...] multiple admission and draining who presented to [facility] on 04/27/2025 with increased drainage from fistula [...] multiple admission and draining who presented to [facility] on 04/27/2025 with increased drainage from fistula [...] multiple admission and draining who presented to [facility] on 04/27/2025 with increased drainage from fistula [...] with antibiotics. 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 She should follow-up with instructional media services technician as outpatient, to restart Aldactone, amiodarone and [...] O's, daily weight. She should follow-up with instructional media services technician as outpatient, to restart Aldactone, amiodarone and Farxiga Assessment & Plan (05/28/2025 11:42 AM EDT): CHADS2 score is 2 Last echocardiogram without significant change, normal right and left ventricular size and function, ejection fraction is 58% patient has been receiving IV fluids due to dehydration Will follow-up with instructional media services technician as outpatient, to restart Aldactone, amiodarone and [...] -Continue atorvastatin 20 mg daily - outpatient instructional media services technician will need to address: AC for afib, [...] -Continue atorvastatin 20 mg daily - outpatient instructional media services technician will need to address: AC for afib, [...] hold Jardiance to be restarted by outpatient instructional media services technician. - Continue metoprolol 25 mg daily - Continue losartan 25 mg daily - Continue holding Jardiance and spironolactone Assessment & Plan (05/20/2025 12:03 PM EDT): Recent echo results from 05/14 reviewed by cardiology, with presumed stress cardiomyopathy. Ejection fraction improved to 58%. Recommending restarting metoprolol succinate and losartan. Advised to hold Jardiance to be restarted by outpatient instructional media services technician. - Continue metoprolol 25 mg daily - Continue losartan 25 mg daily - Continue holding Jardiance and spironolactone Assessment & Plan (05/19/2025 6:40 AM EDT): Recent echo results from 05/14 reviewed by cardiology, with presumed stress cardiomyopathy. Ejection fraction improved to 58%. Recommending restarting metoprolol succinate and losartan. Advised to hold Jardiance to be restarted by outpatient instructional media services technician. - Continue metoprolol 25 mg daily - Continue losartan 25 mg daily - Continue holding Jardiance and spironolactone Assessment & Plan (05/18/2025 6:47 AM EDT): Recent echo results from 05/14 reviewed by cardiology, with presumed stress cardiomyopathy. Ejection fraction improved to 58%. Recommending restarting metoprolol succinate and losartan. Advised to hold Jardiance to be restarted by outpatient instructional media services technician. - Continue metoprolol 25 mg daily - Continue losartan 25 mg daily - Continue holding Jardiance and spironolactone Assessment & Plan (05/17/2025 2:37 PM EDT): Recent echo results from 05/14 reviewed by cardiology, with presumed stress cardiomyopathy. Ejection fraction improved to 58%. Recommending restarting metoprolol succinate and losartan. Advised to hold Jardiance to be restarted by outpatient instructional media services technician. - Continue metoprolol 25 mg daily - Continue losartan 25 mg daily - Continue holding Jardiance and spironolactone Assessment & Plan (05/16/2025 7:39 AM EDT): Recent echo results from 05/14 reviewed by cardiology, with presumed stress cardiomyopathy. Ejection fraction improved to 58%. Recommending restarting metoprolol succinate and losartan. Advised to hold Jardiance to be restarted by outpatient instructional media services technician. - Continue metoprolol 25 mg daily - Continue losartan 25 mg daily - Continue holding Jardiance and spironolactone Assessment & Plan (05/15/2025 2:08 PM EDT): Cardiology's recommendations were appreciated [05/14]. Recent echo results from 05/14 showed improved ejection fraction of 58%. Recommending restarting metoprolol succinate and losartan. Advised to hold Jardiance to be restarted by outpatient instructional media services technician. Plan Recommends metoprolol Losartan 25 mg daily Continue hold on Jardiance and spironolactone Assessment & Plan (05/14/2025 4:48 PM EDT): Cardiology's recommendations were appreciated [05/14]. Recent echo results from 05/14 showed improved ejection fraction of 58%. Recommending restarting metoprolol succinate and losartan. Advised to hold Jardiance to be restarted by outpatient instructional media services technician. 1. Discussed restarting metoprolol with attending 2. [...] Encounters Date Type Department Care Team Description 05/21/2025 4:07 PM EDT - 06/03/2025 11:37 AM EDT Hospital Encounter INPATIENT REHAB [address] [place] [phone] Jhony Laird MD Starrett, Garrison [...] 3:54 PM EDT Hospital Encounter [facility] [address] [place] [phone] Max Young MD Bergner, Anat, MD Vergara, Cunegundo, MD Castiglione, Andrew, MD McClure, Mitchell H, MD Anxiety (Primary Dx); Septic shock-resolved; Stress-induced cardiomyopathy; Nutritional deficiency; Pericarditis, unspecified chronicity, unspecified type; Intra-abdominal abscess (HCC); Allergic rhinitis, unspecified seasonality, unspecified trigger; Atrial fibrillation, unspecified type (HCC) Discharge Disposition: Inpatient Rehab Facility 05/08/2025 7:10 PM EDT Ancillary Procedure [facility] [address] [place] [phone] Provider, File Room 05/08/2025 7:05 PM EDT Ancillary Procedure [facility] [address] [place], [place] [phone] Provider, File Room 05/08/2025 7:00 PM EDT Ancillary Procedure [facility] [address] [place] [phone] Provider, File Room 05/08/2025 7:00 PM EDT Ancillary Procedure [facility] [address] [place] [phone] Provider, File Room from Last 3 Months Social History Tobacco Use Types Packs/Day Years Used Date Smoking Tobacco: Former Cigarettes Smokeless Tobacco: Never Tobacco Cessation:Counseling Given: No Alcohol Use Standard Drinks/Week Comments Never 0 (1 standard drink = 0.6 oz pur e alcohol) [facility] Utilities Answer Date Recorded In the past 12 months has [employer], oil, or [employer] threatened to shut off services in your [...] any time in the past 12 m [facility], were you homeless or living in a detention (including now)? No 05/10/2025 Comments Unknown Sex [...] , 06/28/2022, Additional history exists COVID-19 Vaccine (2023- season) 2025 06/30/2024, 10/01/2023, 07/10/2021, Additional history [...] resultswithin the time period is included. Pathologist [facility] White Blood Cell Count 7.7 4.0 - 11.0 Thou/uL 06/03/2025 7:[address] [facility] Platelet Count 251 150 - 450 Thou/uL 06/03/2025 7:[address] [facility] Hemoglobin 7.5(L) 11.7 - 15.7 g/dL 06/03/2025 7:[address] [facility] Hematocrit 23.5(L) 35.0 - 47.0 % 06/03/2025 7:[address] [facility] Red Blood Cell Count 2.58(L) 4.00 - 5.40 Mil/uL 06/03/2025 7:[address] [facility] MCV 91 80 - 100 fL 06/03/2025 7:[address] [facility] MCH 29.1 27.0 - 31.0 pg 06/03/2025 7:[address] [facility] MCHC 31.9 30.0 - 36.0 g/dL 06/03/2025 7:[address] [facility] RDW 18.2(H) 11.5 - 14.5 % 06/03/2025 7:[address] [facility] MPV 9.5 7.5 - 12.5 fL 06/03/2025 7:11 AM EDT [facility] Blood Blood specimen / Unknown 06/03/2025 6:08 AM EDT 06/03/2025 6:51 AM EDT Anika Lau PA-C LAB BLOOD ORDERABLES Final Re sult Performing Organization Address [facility] [place] [address], [address] [address] * (ABNORMAL) Magnesium (AM) (06/03/2025 6:08 AM EDT) Only the most recent of20 resultswithin the time period is included. Magnesium 1.5(L) 1.6 - 2.7 mg/dL 06/03/2025 7:34 AM EDT [facility] Blood Blood specimen / Unknown 06/03/2025 6:08 AM EDT 06/03/2025 6:51 AM EDT Anika Sid PA-C LAB BLOOD ORDERABLES Final Re sult Performing Organization Address [facility] [address] [facility] [place] [address], [address] [address] * (ABNORMAL) Lipase (06/03/2025 6:08 AM EDT) Only the most recent of2 resultswithin the time period is included. Lipase 256(H) 13 - 60 U/L 06/03/2025 7:34 AM EDT [facility] Blood Blood specimen / Unknown 06/03/2025 6:08 AM EDT 06/03/2025 6:51 AM EDT Anika [facility]-C LAB BLOOD ORDERABLES Final Re sult Performing Organization Address City/[facility] [address]/[place] [address], [address] [address] * (ABNORMAL) Comprehensive Metabolic Panel (06/03/2025 6:08 AM ED) Only the most recent of7 resultswithin the time period is included. Glucose 92 65 - 99 mg/dL 06/03/2025 7:[address] [facility] Comment:Fasting: <100 mg/dL, Non-Fasting: <200 mg/dL (ADA 2004) Blood Urea Nitrogen (BUN) 9 8 - 21 mg/dL 06/03/2025 7:[address] [facility] Creatinine 0.52 0.40 - 1.10 mg/dL 06/03/2025 7:[address] [facility] eGFR >90 >59 06/03/2025 7:[address] [facility] Comment:CKD-EPI (2020) in mL /min/1.73 sq meters. Sodium 135(L) 136 - 145 mmol/L 06/03/2025 7:[address] [facility] Potassium 3.9 3.4 - 5.3 mmol/L 06/03/2025 7:[address] [facility] Chloride 104 98 - 107 mmol/L 06/03/2025 7:[address] [facility] CO2 24 22 - 33 mmol/L 06/03/2025 7:[address] [facility] Calcium 8.0(L) 8.7 - 10.5 mg/dL 06/03/2025 7:[address] [facility] Alkaline Phosphatase 119 32 - 122 U/L 06/03/2025 7:[address] [facility] Aspartate Aminotrans (AST) 21 10 - 50 U/L 06/03/2025 7:[address] [facility] Alanine Aminotrans (ALT) 11 10 - 50 U/L 06/03/2025 7:[address] [facility] Bilirubin, Total 0.3 0.2 - 1.0 mg/dL 06/03/2025 7:[address] [facility] Protein, Total 5.2(L) 6.3 - 8.3 g/dL 06/03/2025 7:[address] [facility] Albumin 2.5(L) 3.4 - 4.8 g/dL 06/03/2025 7:[address] [facility] BUN/Creatinine Ratio 17 10.0 - 25.0 Ratio 06/03/2025 7:34 AM EDT [facility] Globulin 2.7 1.5 - 3.9 g/dL 06/03/2025 7:34 AM EDT [facility] Albumin/Globulin Ratio 0.9(L) 1.0 - 3.0 Ratio 06/03/2025 7:34 AM EDT [facility] Anion Gap 7 7 - 17 06/03/2025 7:34 AM EDT [facility] Blood Blood specimen / Unknown 06/03/2025 6:08 AM EDT 06/03/2025 6:51 AM EDT us Anika Lau PA-C LAB BLOOD ORDERABLES Final Re sult [address] [address], [address] [address] * ECG 12 lead (06/02/2025 10:24 AM EDT) Only the most recent of15 resultswithin the time period is included. Ventricular rate 81 BPM EKG [facility] Atrial rate 81 BPM EKG [facility] P-R interval 170 ms EKG [facility] QRS duration 66 ms EKG [facility] Q-T interval 406 ms EKG [facility] QTC calculation (Bazett) 472 ms EKG [facility] P axis 51 degrees EKG [facility] R axis 16 degrees EKG [facility] T axis 41 degrees EKG [facility] 06/02/2025 10:2 4 AM EDT Narrative EKG [facility] - 06/02/2025 10:30 AM EDT Normal sinus rhythm Nonspecific T wave abnormality Abnormal ECG Confirmed by MD Pace John ([id number]) on 06/02/2025 10:30:22 AM Procedure Note Alvaro Pace MD - 06/02/2025 Normal sinus rhythm Nonspecific T wave abnormality Abnormal ECG Confirmed by MD Pace John ([id number]) on 06/02/2025 10:30:22 AM us Jhony Laird MD ECG ORDERABLES Final Resu lt EKG [facility] * Lactic Acid, Plasma (STAT) (06/02/2025 7:45 AM EDT) Only the most recent of15 resultswithin the time period is included. Pathologist [facility] Lactic Acid 0.8 0.5 - 1.9 mmol/L 06/02/2025 8:33 AM EDT [facility] Blood Blood specimen / Unknown 06/02/2025 7:45 AM EDT 06/02/2025 8:03 AM EDT Anika Lau PA-C LAB BLOOD ORDERABLES Final Re sult Performing Organization Address City/[facility] [address] [facility]/ZIP Co de Phone Number [address] [address], [address] [address] * (ABNORMAL) Complete Blood Count, with Differential (06/02/2025 5:18 AM EDT) Only the most recent of6 resultswithin the time period is included. [facility] White Blood Cell Count 10.6 4.0 - 11.0 Thou/uL 06/02/2025 5:[address] [facility] Platelet Count 269 150 - 450 Thou/uL 06/02/2025 5:[address] [facility] Hemoglobin 7.9(L) 11.7 - 15.7 g/dL 06/02/2025 5:[address] [facility] Hematocrit 25.0(L) 35.0 - 47.0 % 06/02/2025 5:[address] [facility] Red Blood Cell Count 2.79(L) 4.00 - 5.40 Mil/uL 06/02/2025 5:[address] [facility] MCV 90 80 - 100 fL 06/02/2025 5:[address] [facility] MCH 28.3 27.0 - 31.0 pg [facility] 31.6 30.0 - 36.0 g/dL 06/02/2025 5:59 AM EDT [facility] RDW 18.0(H) 11.5 - 14.5 % 06/02/2025 5:59 AM EDT [facility] MPV 9.3 7.5 - 12.5 fL 06/02/2025 5:59 AM EDT [facility] Neutrophils Auto 75.6 % 06/02/20 5:59 AM EDT [facility] Immature Granulocytes 0.7 % 06/02/2025 5:59 AM EDT [facility] Lymphocytes Auto 11.7 % 06/02/20 5:59 AM EDT [facility] Monocytes Auto 9.8 % 06/02/2025 5:59 AM EDT [facility] Eosinophils Auto 1.6 % 06/02/20 5:59 AM EDT [facility] Basophils Auto 0.6 % 06/02/2025 5:59 AM EDT [facility] Abs Neutrophils Auto 7.99(H) 2.00 - 7.50 Thou/uL 06/02/2025 5:59 AM EDT [facility] Abs Immature Granulocytes 0.07 0.00 - 0.10 Thou/uL 06/02/2025 5:59 AM EDT [facility] Abs Lymphocytes Auto 1.24(L) 1.50 - 4.50 Thou/uL 06/02/2025 5:59 AM EDT [facility] Abs Monocytes Auto 1.04 0.20 - 1.50 Thou/uL 06/02/2025 5:59 AM EDT [facility] Abs Eosinophils Auto 0.17 0.00 - 0.70 Thou/uL 06/02/2025 5:59 AM EDT [facility] Abs Basophils Auto 0.06 0.00 - 0.20 Thou/uL 06/02/2025 5:59 AM EDT [facility] Blood Blood specimen / Unknown 06/02/2025 5:18 AM EDT 06/02/2025 5:49 AM EDT us Jhony Laird MD LAB BLOOD ORDERABLES Final Result [address] [address], [facility] [address] [place] [address] * CT Abdomen+pelvis w/contrast (06/01/2025 2:25 PM [...] 65 - 99 mg/dL 06/01/2025 6:[address] [facility] Comment:Fasting: <100 mg/dL, Non-Fasting: <200 mg/dL (ADA 2004) Blood Urea Nitrogen (BUN) 31(H) 8 - 21 mg/dL 06/01/2025 6:[address] [facility] Creatinine 1.26(H) 0.40 - 1.10 mg/dL 06/01/2025 6:[address] [facility] eGFR 47(L) >59 06/01/2025 6:[address] [facility] Comment:CKD-EPI (2020) in mL /min/1.73 sq meters. Sodium 133(L) 136 - 145 mmol/L 06/01/2025 6:[address] [facility] Potassium 4.5 3.4 - 5.3 mmol/L 06/01/2025 6:[address] [facility] Chloride 103 98 - 107 mmol/L 06/01/2025 6:[address] [facility] CO2 20(L) 22 - 33 mmol/L 06/01/2025 6:[address] [facility] Anion Gap 10 7 - 17 06/01/2025 6:[address] [facility] Calcium 8.7 8.7 - 10.5 mg/dL 06/01/2025 6:[address] [facility] BUN/Creatinine Ratio 25 10.0 - 25.0 Ratio 06/01/2025 6:[address] [facility] Blood Blood specimen / Unknown 06/01/2025 5:30 AM EDT 06/01/2025 5:35 AM EDT Anika Lau PA-C LAB BLOOD ORDERABLES Final Re sult [address] [address], [address] [address] * XR Knee 3 views-Bilateral (05/28/2025 4:06 [...] with progression seen in the right knee. us Sydni Barakat MD IMG DIAGNOSTIC IMAGING ORDER PAT Final Result * Phosphorus (AM) (05/27/2025 6:20 AM EDT) Only the most recent of10 resultswithin the time period is included. Phosphorus 2.8 2.7 - 4.5 mg/dL 05/27/2025 7:24 AM EDT [facility] Blood Blood specimen / Unknown 05/27/2025 6:20 AM EDT 05/27/2025 6:49 AM EDT Jessica MORIN-Nikki LAB BLOOD ORDERABLES Final Result Performing Organization Address [facility] [place] [address], [place] [address] * Sodium, Urine, Random (05/25/2025 2:52 PM EDT) Sodium, Urine Random <20 mmol/L 05/25/2025 3:28 PM EDT [facility] Comment:Reference range not established for random specimen. Urine Urine specimen / Unknown 05/25/2025 2:52 PM EDT 05/25/2025 3:10 PM EDT Merva Ward CALL CENTER ASSISTANT URINE ORDERABLES Final Result Performing Organization Address [facility] [place] [address], [place] [address] * Osmolality, Urine (05/25/2025 2:52 PM EDT) Osmolality, Urine 546 50 - 1,200 mOsm/Kg 05/25/2025 4:13 PM EDT [facility] Urine Urine specimen / Unknown 05/25/2025 2:52 PM EDT 05/25/2025 3:10 PM EDT Merva Ward CALL CENTER ASSISTANT URINE ORDERABLES Final Result Performing Organization Address [facility] Co de Phone Number [address] [address], [address] [address] * (ABNORMAL) Renal Function Panel (05/24/2025 5:13 AM EDT) Glucose 92 65 - 99 mg/dL 05/24/2025 7:[address] [facility] Comment:Fasting: <100 mg/dL, Non-Fasting: <200 mg/dL (ADA 2004) Blood Urea Nitrogen (BUN) 31(H) 8 - 21 mg/dL 05/24/2025 7:[address] [facility] Creatinine 1.05 0.40 - 1.10 mg/dL 05/24/2025 7:[address] [facility] eGFR 59(L) >59 05/24/2025 7:[address] [facility] Comment:CKD-EPI (2020) in mL /min/1.73 sq meters. Sodium 131(L) 136 - 145 mmol/L 05/24/2025 7:[address] [facility] Potassium 4.4 3.4 - 5.3 mmol/L 05/24/2025 7:[address] [facility] Chloride 98 98 - 107 mmol/L 05/24/2025 7:[address] [facility] CO2 21(L) 22 - 33 mmol/L 05/24/2025 7:[address] [facility] Calcium 8.6(L) 8.7 - 10.5 mg/dL 05/24/2025 7:[address] [facility] Phosphorus 3.0 2.7 - 4.5 mg/dL 05/24/2025 7:[address] [facility] Albumin 3.4 3.4 - 4.8 g/dL 05/24/2025 7:[address] [facility] BUN/Creatinine Ratio 30(H) 10.0 - 25.0 Ratio 05/24/2025 7:[address] [facility] Blood Blood specimen / Unknown 05/24/2025 5:13 AM EDT 05/24/2025 6:24 AM EDT us Sydni Barakat MD LAB BLOOD ORDERABLES Final R esult [address] [address], [address] [address] * (ABNORMAL) High Sensitivity D-Dimer (05/17/2025 5:09 AM EDT) Only the most recent of7 resultswithin the time period is included. High Sensitivity D-Dimer 344(H) <230 ng/mL DDU 05/17/2025 6:23 AM EDT [facility] Comment: The threshold for exclusion of [...] BLOOD ORDERABLES Final Result Performing Organization Address [facility] Co de Phone Number [address] [address], [address] [address] * Partial Thromboplastin Time (PTT) (05/17/2025 5:09 AM EDT) Only the most recent of7 resultswithin the time period is included. Anticoagulant NO ANTI COAGULANT MEDS 05/17/2025 5:09 AM EDT [facility] Partial Thromboplastin Time (PTT) 28 25 - 36 seconds 05/17/2025 6:23 AM EDT [facility] Blood Blood specimen / Unknown 05/17/2025 5:09 AM EDT 05/17/2025 6:04 AM EDT us Malvin Boone MD LAB BLOOD ORDERABLES Final Result Performing Organization Address City/[facility] [address] [facility]/ZIP Co de Phone Number [address] [address], [address] [address] * (ABNORMAL) PROTIME-INR (05/17/2025 5:09 AM EDT) Only the most recent of8 resultswithin the time period is included. Anticoagulant NO ANTI COAGULANT MEDS 05/17/2025 5:09 AM EDT [facility] Prothrombin Time (PT) 17.1(H) 10.0 - 13.5 seconds 05/17/2025 6:23 AM EDT [facility] INR 1.5 05/17/2025 6:23 AM EDT [facility] Comment:INR Therapeutic Rang es: Standard dose anticoagulant 2.0 to 3.0, High dose anticoagulant 2.5-3.5. Blood Blood specimen / Unknown 05/17/2025 5:09 AM EDT 05/17/2025 6:04 AM EDT us Malvin Boone MD LAB BLOOD ORDERABLES Final Result Performing Organization Address [facility] Co de Phone Number [address] [address], [address] [address] * Fibrinogen Level (05/17/2025 5:09 AM EDT) Only the most recent of8 resultswithin the time period is included. Fibrinogen 179 148 - 435 mg/dL 05/17/2025 6:23 AM EDT [facility] Blood Blood specimen / Unknown 05/17/2025 5:09 AM EDT 05/17/2025 6:04 AM EDT us Malvin Boone MD LAB BLOOD ORDERABLES Final Result Performing Organization Address City/[facility] Co de Phone Number [address] [address], [address] [address] * Protein, Total (05/17/2025 5:09 AM EDT) Protein, Total 6.3 6.3 - 8.3 g/dL 05/17/2025 6:30 AM EDT [facility] Blood Blood specimen / Unknown 05/17/2025 5:09 AM EDT 05/17/2025 6:04 AM EDT us Malvin Boone MD LAB BLOOD ORDERABLES Final Result Performing Organization Address [facility] [place] [address], [place] [address] * Lactate Dehydrogenase (LDH) (05/17/2025 5:09 AM EDT) Only the most recent of2 resultswithin the time period is included. Lactate Dehydrogenase (LDH) 137 120 - 260 U/L 05/17/2025 6:30 AM EDT [facility] Blood Blood specimen / Unknown 05/17/2025 5:09 AM EDT 05/17/2025 6:04 AM EDT us Malvin Boone MD LAB BLOOD ORDERABLES Final Result Performing Organization Address [facility] [place] [address], [place] [address] * THORACENTESIS (05/16/2025 3:58 PM EDT) Anatomical [...] the correct patient, procedure, equipment, technical support assistant and site/side marked as required. Procedure purpose: [...] Sample left with bedside RN. ACCESS: 6 [place]and[place] Cuem-H-Kjpntjsp closed needle/catheter system REQUESTING PRACTITIONER: KURT iMtchell CLINICIAN(S): PATIENCE Lopez CONSENT: Informed consent was [...] adjacent organs or vascular structures. A 6 Ugandan Wkgo-D-Urhbuxub closed needle/catheter system was utilized for access. [...] No organisms seen 05/16/2025 7:33 PM EDT [facility] Culture No aerobes and anaerobes isolated after 7 days 05/23/2025 3:38 PM EDT [facility] Fluid, Pleural Specimen from pleura obtained by thoracentesis / Unknown 05/16/2025 3:35 PM EDT 05/16/2025 5:52 PM EDT Comment:Fluid, Pleural Malvin Boone MD MICROBIOLOGY - GENERAL ORD ERABLES Final Result [facility] [address] [place] [address], [address] [address] * Protein - Pleural Fluid (05/16/2025 3:35 PM EDT) Source Pleural Cavity, Left 05/16/2025 3:35 PM EDT [facility] Comment:Fluid, Pleural Protein, Body Fluid 2.3 g/dL 05/16/2025 5:40 PM EDT [facility] Comment:The reference interv al(s) and other [...] ORD ERABLES Final Result Performing Organization Address [facility] [place] [address], [place] [address] * LDH - Pleural Fluid (05/16/2025 3:35 PM EDT) Source Pleural Cavity, Left 05/16/2025 3:35 PM EDT [facility] Comment:Fluid, Pleural Lactate Dehydrogenase, Body Fluid 51 U/L 05/16/2025 5:40 PM EDT [facility] Comment:The reference interv al(s) and other [...] ORD ERABLES Final Result Performing Organization Address [facility] [place] [address], [address] [address] * Glucose - Pleural Fluid (05/16/2025 3:35 PM EDT) Source Pleural Cavity, Left 05/16/2025 3:35 PM EDT [facility] Comment:Fluid, Pleural Glucose, Body Fluid 84 mg/dL 05/16/2025 5:40 PM T [facility] Comment:The reference interv al(s) and other method performance specifications are unavailable for this body fluid. Comparison of this result with the concentration in the blood, serum, or plasma is recommended. Fluid, Pleural Specimen from pleura obtained by thoracentesis / Unknown 05/16/2025 3:35 PM EDT 05/16/2025 4:33 PM EDT us Malvin Boone MD BODY FLUIDS AND STOOLS ORD ERABLES Final Result [address] [address], [address] [address] * Cell Count, Reflex Differential, Body Fluid (05/16/2025 3:35 PM EDT) Appearance, Body Fluid Clear 05/16/2025 8:39 PM EDT [facility] Color Yellow 05/16/2025 8:[address] [facility] Nucleated Cells, Fluid 96 /CUMM 05/16/2025 5:[address] [facility] Comment:Macroscopic particle s present. Question accuracy of results. RBC, Fluid <2,000 /CUMM 05/16/2025 5:[address] [facility] Comment:Macroscopic particle s present. Question accuracy of results. Neutrophil, Body Fluid 4 % [facility] Lymphoctye, Body Fluid 22 % 05/16/2025 8:[address] [facility] Monocyte, Body Fluid 38 % 05/16/2025 8:[address] [facility] Histiocyte, Body Fluid 28 % 05/16/2025 8:[address] [facility] Mesothelial, Body Fluid 8 % 05/16/2025 8:[address] [facility] Smear Comment, Body Fluid The reference interval and other method performance specifications are unavailable for this body fluid. Comparison of the result with concentration in the blood, serum, or plasma is recommended 05/16/2025 8:[facility] Fluid, Pleural Specimen from pleura obtained by thoracentesis / Unknown 05/16/2025 3:35 PM EDT 05/16/2025 4:33 PM EDT Malvin Boone MD BODY FLUIDS AND STOOLS ORD ERABLES Final Result Performing Organization Address [facility] [place] [address], [place] [address] * Thrombin Time (05/16/2025 10:00 AM EDT) Only the most recent of5 resultswithin the time period is included. Anticoagulant NO ANTI COAGULANT MEDS 05/16/2025 9:22 AM EDT [facility] Thrombin Time 18.1 12.7 - 19.2 seconds 05/16/2025 10:40 AM EDT [facility] Blood Blood specimen / Unknown 05/16/2025 10:00 AM EDT 05/16/2025 10:12 AM EDT Calvin Lew MD LAB BLOOD ORDERABLES Final Result Performing Organization Address [facility] [place] [address], [place] [address] * EEG < 24 HR W/VIDEO -REDUCED SERVICE (05/15/2025 8:22 AM EDT) Narrative [facility] - 05/15/2025 8:23 AM EDT Laura Chaudhari MD 05/15/2025 1:22 PM ADULT INPATIENT CONTINUOUS VIDEO-EEG MONITORING (LTM) REPORT Facility: [facility] Patient and : Kia Phelps [...] care. MD Olivia Galicia MD ABPN Epilepsy. [facility] us Greg Sigala MD NEUROLOGY ORDERABLES Edited Res ult - Final [facility] [address] [place] [address], * (ABNORMAL) C-REACTIVE PROTEIN (05/15/2025 5:48 AM EDT) C-Reactive Protein 2.18(H) 0 - 0.49 mg/dL 05/15/2025 10:45 AM EDT [facility] 05/15/2025 5:48 AM EDT 05/15/2025 6:27 AM EDT us Calvin Lew MD LAB BLOOD ORDERABLES Final Result [address] [address], [address] [address] * EEG 24 HOUR WITH VIDEO (05/15/2025 4:45 AM EDT) Narrative [facility] - 05/14/2025 5:24 PM EDT Laura Chaudhari MD 05/14/2025 5:25 PM ADULT INPATIENT CONTINUOUS VIDEO-EEG MONITORING (LTM) REPORT Facility: [facility] Patient and : Kia Phelps [...] care. MD Olivia Galicia MD ABPN Epilepsy. [facility] Greg Sigala MD NEUROLOGY ORDERABLES Final Resu lt [facility] [address] [place] [address], * Transfuse RBC's: (05/14/2025 2:19 PM EDT) [...] Auto 64.9 % 05/14/20 11:34 AM EDT [facility] Immature Granulocytes 0.7 % 05/14/2025 [facility] Lymphocytes Auto 20.3 % 05/14/20 [facility] Monocytes Auto 9.9 % 05/14/2025 11:[facility] Eosinophils Auto 3.4 % 05/14/20 [facility] Basophils Auto 0.8 % 05/14/2025 11:[address] [facility] Abs Neutrophils Auto 4.73 2.00 - 7.50 Thou/uL 05/14/2025 11:[facility] Abs Immature Granulocytes 0.05 0.00 - 0.10 Thou/uL 05/14/2025 11:[facility] Abs Lymphocytes Auto 1.48(L) 1.50 - 4.50 Thou/uL 05/14/2025 11:[facility] Abs Monocytes Auto 0.72 0.20 - 1.50 Thou/uL 05/14/2025 11:[address] [facility] Abs Eosinophils Auto 0.25 0.00 - 0.70 Thou/uL 05/14/2025 11:[facility] Abs Basophils Auto 0.06 0.00 - 0.20 Thou/uL 05/14/2025 11:[address] [facility] Blood specimen / Unknown 05/14/2025 6:20 AM EDT 05/14/2025 6:28 AM EDT us Calvin Lew MD LAB BLOOD ORDERABLES Final Result [address] [address], [address] [address] * Triglycerides (05/14/2025 6:20 AM EDT) Triglycerides 88 <150 mg/dL 05/14/2025 6:59 AM EDT [facility] Blood Blood specimen / Unknown 05/14/2025 6:20 AM EDT 05/14/2025 6:28 AM EDT Calvin Lew MD LAB BLOOD ORDERABLES Final Result Performing Organization Address [facility] [place] [address], [place] [address] * (ABNORMAL) Ferritin (05/14/2025 6:20 AM EDT) Ferritin 657(H) 30 - 400 ug/L 05/14/2025 6:59 AM EDT [facility] Blood Blood specimen / Unknown 05/14/2025 6:20 AM EDT 05/14/2025 6:28 AM EDT Calvin Lew MD LAB BLOOD ORDERABLES Final Result Performing Organization Address [facility] [place] [address], [place] [address] * (ABNORMAL) POCT Glucose, Fingerstick (05/13/2025 8:06 PM EDT) Only the most recent of34 resultswithin the time period is included. POC Glucose 102(H) 65 - 99 mg/dL 05/13/2025 8:07 PM EDT Blood specimen / Unknown 05/13/2025 8:06 PM EDT 05/13/2025 8:07 PM EDT Max Young MD POINT OF CARE TEST ORDERABLES F inal Result Performing Organization Address City/[facility] Co de Phone Number HOSPITAL LAB See Below * EEG 24 HOUR WITH VIDEO (05/13/2025 7:08 PM EDT) Narrative [facility] - 05/13/2025 1:40 PM EDT Laura Chaudhari MD 05/13/2025 1:41 PM ADULT INPATIENT CONTINUOUS VIDEO-EEG MONITORING (LTM) REPORT Facility: [facility] Patient and : Kia Phelps [...] care. MD Olivia Galicia MD ABPN Epilepsy. [facility] us Greg Sigala MD NEUROLOGY ORDERABLES Final Resu lt [facility] [address] [place] [address], * Transfuse Platelets:Transfusion Indications: Plt count less than or equal to 50K and Pre or Post surgery or invasive procedure (05/13/2025 2:36 PM EDT) Calvin Lew MD BLOOD TRANSFUSION ORDERABL ES Final Result * Type and Screen (05/13/2025 8:15 AM EDT) ABO/Rh O POSITIVE 05/13/2025 10:[address] [facility] Antibody Screen NEGATIVE 05/13/2025 10:[address] [facility] Specimen Expiration 05/16/2025 05/13/2025 10:[address] [facility] Blood Bank Comment Second Sample needed for Blood Transfusion 05/13/2025 10:21 AM EDT [facility] Unit Number [id number] 05/14/2025 7:[address] [facility] Blood Component Type LEUKOREDUCED RED CELLS 05/14/2025 7:07 AM EDT [facility] Unit Division 00 05/14/2025 7:[address] [facility] Unit Status ISSUED,FINAL 05/15/2025 12:[address] [facility] Transfusion Status OK TO TRANSFUSE 05/14/2025 7:[address] [facility] Crossmatch Result Electronically Compatible 05/14/2025 7:[address] [facility] Blood Blood specimen / Unknown 05/13/2025 8:15 AM EDT 05/13/2025 9:28 AM EDT Comment:Blood us Calvin Lew MD BLOOD BANK TEST ORDERABLES Final Result Performing Organization Address [facility] Co de Phone Number [place] [address] * Prepare Platelets:Prepare in: Doses; Number of doses: 1; Transfusion Indications: Plt count less than or equal to 50K and Pre or Post surgery or invasive procedure (05/13/2025 7:32 AM EDT) Units Ordered 1 05/13/2025 7:32 AM EDT Unit Number [id number] 05/13/2025 12:03 PM EDT [facility] Blood Component Type Apheresis Platelets (7d) Irradiated Leukocytes Reduced - 1st container 05/13/2025 12:03 PM EDT [facility] Unit Division 00 05/13/2025 12:03 PM EDT [facility] Unit Status ISSUED,FINAL 05/14/2025 12:20 AM EDT [facility] Transfusion Status OK TO TRANSFUSE 05/13/2025 12:03 PM EDT [facility] 05/13/2025 7:32 AM EDT 05/13/2025 12:03 PM EDT us Calvin Lew MD BLOOD BANK PRODUCT ORDERAB LES Final Result Performing Organization Address [facility] Co de Phone Number [place] [address] * EEG 24 HOUR WITH VIDEO (05/13/2025 6:31 AM EDT) Narrative [facility] - 05/12/2025 1:41 PM EDT Laura Chaudhari MD 05/12/2025 1:45 PM ADULT INPATIENT CONTINUOUS VIDEO-EEG MONITORING (LTM) REPORT Facility: [facility] Patient and : Kia Phelps [...] care. MD Olivia Galicia MD ABPN Epilepsy. [facility] us Greg Sigala MD NEUROLOGY ORDERABLES Final Resu lt [facility] [address] [place] [address], * ABO Confirmation (05/13/2025 4:49 AM EDT) ABO/Rh O POSITIVE 05/13/2025 12:01 PM EDT [facility] Blood specimen / Unknown 05/13/2025 4:49 AM EDT 05/13/2025 10:48 AM EDT Max Young MD BLOOD BANK TEST ORDERABLES Queenie l Result Performing Organization Address City/[facility]/ZIP Co de Phone Number [address] [address], [address] [address] * (ABNORMAL) HEPATIC FUNCTION PANEL (05/13/2025 4:49 AM EDT) Only the most recent of2 resultswithin the time period is included. Alkaline Phosphatase 197(H) 32 - 122 U/L 05/13/2025 7:44 AM EDT [facility] Aspartate Aminotrans (AST) 38 10 - 50 U/L 05/13/2025 7:44 AM T [facility] Alanine Aminotrans (ALT) 7(L) 10 - 50 U/L 05/13/2025 7:44 AM EDT [facility] Bilirubin, Total 0.6 0.2 - 1.0 mg/dL 05/13/2025 7:44 AM T [facility] Protein, Total 5.4(L) 6.3 - 8.3 g/dL 05/13/2025 7:[address] [facility] Albumin 3.0(L) 3.4 - 4.8 g/dL 05/13/2025 7:[address] [facility] Bilirubin, Direct 0.4(H) 0 - 0.2 mg/dL 05/13/2025 7:[address] [facility] Globulin 2.4 1.5 - 3.9 g/dL 05/13/2025 7:[address] [facility] Albumin/Globulin Ratio 1.3 1.0 - 3.0 Ratio 05/13/2025 7:[address] [facility] 05/13/2025 4:49 AM EDT 05/13/2025 5:52 AM EDT Calvin Lew MD LAB BLOOD ORDERABLES Final Result Performing Organization Address City/[facility]/[place] [address], [address] [place] [address] * MRI Brain w w/o contrast (05/12/2025 [...] is no abnormal parenchymal or meningeal enhancement. us Max Young MD IMG MRI ORDERABLES Final Result * EEG - Long-term monitoring (05/11/2025 3:26 PM EDT) Narrative [facility] - 05/11/2025 3:26 PM EDT Laura Chaudhari MD 05/11/2025 3:28 PM ADULT INPATIENT CONTINUOUS VIDEO-EEG MONITORING (LTM) REPORT Facility: [facility] Patient and : Kia Phelps [...] care. MD Olivia Galicia MD ABPN Epilepsy. [facility] Greg Sigala MD NEUROLOGY ORDERABLES Final Resu lt [facility] [address] [place] [address], [place] * XR Abdomen 1 view (05/11/2025 [...] Jaclyn Hunter MD IMG DIAGNOSTIC IMAGING ORDE RABSHARLA Final Result * EEG 24 HOUR WITH VIDEO (05/11/2025 1:39 AM EDT) Narrative [facility] - 05/10/2025 11:31 AM EDT Laura Chaudhari MD 05/10/2025 11:35 AM ADULT INPATIENT CONTINUOUS VIDEO-EEG MONITORING (LTM) REPORT Facility: [facility] Patient and : Kia Phelps [...] care. MD Olivia Galicia MD ABPN Epilepsy. [facility] Greg Sigala MD NEUROLOGY ORDERABLES Final Resu lt [facility] [address] [place] [address], * (ABNORMAL) Transferrin (05/10/2025 8:10 PM EDT) Transferrin 57(L) 200 - 360 mg/dL 05/10/2025 8:41 PM EDT [facility] Blood Blood specimen / Unknown 05/10/2025 8:10 PM EDT 05/10/2025 8:14 PM EDT Jaclyn Hunter MD LAB BLOOD ORDERABLES Final Result Performing Organization Address [facility]/ZIP Co de Phone Number [address] [address], [address] [address] * FEEDING TUBE PLACEMENT (NASODUODENAL/NASOJEJUNAL) (05/10/2025 1:17 PM EDT) Narrative Denzel Solsi RN - 05/10/2025 1:17 PM EDT Denzel [...] the correct patient, procedure, equipment, technical support assistant and site/side marked as required. Preparation: Patient [...] as clinically warranted. us Priscilla Moris [facility] [place] ORDERABLES Final Result * Pathology Smear Review, Whole Blood (05/10/2025 6:20 AM EDT) Pathology Comment Smear review: 05/11/2025 1:30 AM EDT [facility] Comment: Anemia and thrombocytopenia--smear not diagnostic of etiology. [place] cells: consider electrolyte imbalance vs artifact. Junior Dominguez MD ([facility]) Blood specimen / Unknown 05/10/2025 6:20 AM EDT 05/10/2025 6:25 AM EDT us Priscilla Subramanian MD PATHOLOGY/CYTOLOGY ORDERABLES Fi nal Result [address] [address], [address] [address] * EEG 24 HOUR WITH VIDEO (05/10/2025 3:58 AM EDT) Narrative [facility] - 05/09/2025 5:20 AM EDT Olivia Berman MD 05/09/2025 3:23 PM ADULT INPATIENT CONTINUOUS VIDEO-EEG MONITORING (LTM) REPORT Facility: [facility] Patient and : Kia Phelps [...] patient care. Olivia Berman MD ABPN Epilepsy. [facility] Greg Sigala MD NEUROLOGY ORDERABLES Edited Res ult - Final [facility] [address] [place] [address], * (ABNORMAL) Prealbumin (05/09/2025 5:45 PM EDT) Prealbumin 6(L) 20 - 40 mg/dL 05/09/2025 7:10 PM EDT [facility] Blood Blood specimen / Unknown 05/09/2025 5:45 PM EDT 05/09/2025 6:07 PM EDT Priscilla Subramanian MD LAB BLOOD ORDERABLES Final Resul t Performing Organization Address [facility] [place] [address], [place] [address] * (ABNORMAL) Folate Level (05/09/2025 5:45 PM EDT) Folate, Serum 4.6(L) >7.2 ng/mL 05/09/2025 7:24 PM EDT [facility] Blood Blood specimen / Unknown 05/09/2025 5:45 PM EDT 05/09/2025 6:07 PM EDT Priscilla Subramanian MD LAB BLOOD ORDERABLES Final Resul t Performing Organization Address City/[facility] [place] [address], [address] [address] * Vitamin B12 (05/09/2025 5:45 PM EDT) Vitamin B12 772 243 - 894 pg/mL 05/09/2025 7:10 PM EDT [facility] Blood Blood specimen / Unknown 05/09/2025 5:45 PM EDT 05/09/2025 6:07 PM EDT Priscilla Subramanian MD LAB BLOOD ORDERABLES Final Resul t Performing Organization Address City/[facility] [place] [address], [address] [address] * Blood Culture (05/09/2025 10:23 AM EDT) Only the most recent of2 resultswithin the time period is included. Culture Sterile after 5 days 05/14/2025 3:10 PM EDT [facility] Blood Blood specimen / Unknown 05/09/2025 10:23 AM EDT 05/09/2025 11:30 AM EDT Comment:Blood us Priscilla Subramanian MD LAB BLOOD ORDERABLES Final Resul t Performing Organization Address City/State/[facility] Co de Phone Number [facility] [address] [place] [address], * Procalcitonin (05/09/2025 10:20 AM EDT) Procalcitonin 0.28 <0.51 ng/mL 05/09/2025 11:37 AM EDT [facility] Comment: New Reference Range for Procalcitonin [...] ORDERABLES Final Resu lt Performing Organization Address [facility] [facility] [address]/[facility] [place] [address], [place] [address] * Nasal MRSA Screen, PCR (05/09/2025 10:20 AM EDT) MRSA Result Not Detected Not Detected 5:21 PM EDT [facility] Comment:Performed by the Xpe rt MRSA NxG Assay Swab, Anterior Nares Specimen from nose / Unknown 05/09/2025 10:20 AM EDT 05/09/2025 12:38 PM EDT us Dieter Molina MD MICROBIOLOGY - GENERAL ORDERABL ES Final Result Performing Organization Address [facility] [address] [facility] [place] [address], [place] [address] * Heparin PF4 Ab Screen Reflex Serotonin Release Assay (05/09/2025 9:10 AM EDT) Heparin PF4 Antibody Negative Negative 05/09/2025 11:20 AM EDT [facility] Comment:Negative Screen, ref destinee testing not indicated. Blood Blood specimen / Unknown 05/09/2025 9:10 AM EDT 05/09/2025 9:34 AM EDT us Priscilla Subramanian MD LAB BLOOD ORDERABLES Final Resul t Performing Organization Address [facility] Co de Phone Number [address] [address], [address] [address] * Haptoglobin (05/09/2025 9:10 AM EDT) Haptoglobin 65 30 - 200 mg/dL 05/09/2025 10:09 AM EDT [facility] Blood Blood specimen / Unknown 05/09/2025 9:10 AM EDT 05/09/2025 9:34 AM EDT us Priscilla Subramanian MD LAB BLOOD ORDERABLES Final Resul t Performing Organization Address [facility] Co de Phone Number [address] [address], [address] [address] * (ABNORMAL) proBNP, N-terminal (05/09/2025 3:00 AM EDT) proBNP, N-terminal 41,316(H) <125 pg/mL 05/09/2025 4:11 AM EDT [facility] Blood Blood specimen / Unknown 05/09/2025 3:00 AM EDT 05/09/2025 3:35 AM EDT us Max Young MD LAB BLOOD ORDERABLES Final Resu lt Performing Organization Address [facility] [address]/[facility] Co de Phone Number [address] [address], [address] [address] * CTA Chest for P.E. (05/09/2025 2:26 [...] renal calculi. Interpreted by: Evin Elise MD Duty Engineer I personally reviewed the images and the resident's preliminary report and made the MINOR addendum above (RADPAL2). Narrative 05/09/2025 9:47 AM EDT EXAMINATION: CTA OF THE CHEST, ABDOMEN, AND PELVIS WITH AND WITHOUT CONTRAST CLINICAL INFORMATION: 65 years old Female with tachycardia, lactic acidosis COMPARISON: CT abdomen and pelvis 04/23/2025 CT chest 08/18/2016 DESCRIPTION: Initial noncontrast localizing locket maker images were obtained. Timing boluses at the [...] CT chest 08/18/2016 DESCRIPTION: Initial noncontrast localizing locket maker images were obtained. Timing boluses at the [...] renal calculi. Interpreted by: Evin Elise MD Duty Engineer I personally reviewed the images and the [...] renal calculi. Interpreted by: Evin Elise MD Duty Engineer I personally reviewed the images and the resident's preliminary report and made the MINOR addendum above (RADPAL2). Narrative 05/09/2025 9:47 AM EDT EXAMINATION: CTA OF THE CHEST, ABDOMEN, AND PELVIS WITH AND WITHOUT CONTRAST CLINICAL INFORMATION: 65 years old Female with tachycardia, lactic acidosis COMPARISON: CT abdomen and pelvis 04/23/2025 CT chest 08/18/2016 DESCRIPTION: Initial noncontrast localizing locket maker images were obtained. Timing boluses at the [...] CT chest 08/18/2016 DESCRIPTION: Initial noncontrast localizing locket maker images were obtained. Timing boluses at the [...] renal calculi. Interpreted by: Evin Elise MD Duty Engineer I personally reviewed the images and the resident's preliminary report and made the MINOR addendum above (RADPAL2). us Max Young MD IMG CT ORDERABLES Final Result * Prolactin (05/08/2025 11:57 PM EDT) Prolactin 7.6 4.8 - 23.3 ng/mL 05/09/2025 12:38 AM EDT [facility] Blood Blood specimen / Unknown 05/08/2025 11:57 PM EDT 05/09/2025 12:03 AM EDT us Max Young MD LAB BLOOD ORDERABLES Final Resu lt [address] [address], [address] [address] * (ABNORMAL) Blood Gas, Venous (05/08/2025 11:57 PM EDT) Venous Blood PH 7.34 7.33 - 7.43 05/09/2025 12:20 AM EDT [facility] Venous pCO2 30(L) 35 - 50 mmHG 05/09/2025 12:20 AM EDT [facility] Venous pO2 95(H) 0 - 60 mmHG 05/09/2025 12:20 AM T [facility] Venous Total CO2 17(L) 23 - 29 mmol/L 05/09/2025 12:20 AM EDT [facility] Respiratory Info ROOM AIR 05/08/20 10:32 PM EDT [facility] Base Deficiency 8.6 mmol/L 12:20 AM T [facility] Comment:Reference Range: Neg ative 2 to Positive 3 Blood Blood specimen / Unknown 05/08/2025 11:57 PM EDT 05/09/2025 12:02 AM EDT Max Young MD LAB BLOOD ORDERABLES Final Resu lt Performing Organization Address [facility] [address]/[facility] Co de Phone Number [address] [address], [address] [address] * CT Head Archive for Reference Only (05/08/2025 6:58 PM EDT) Only the most recent of3 resultswithin the time period is included. Narrative [facility] - 05/08/2025 6:58 PM EDT This study has been auto finalized and does not contain a result. us File Room Provider IMG DIGITIZE FILMS Final Resu lt Performing Organization Address City/[facility] [address]/ZIP Co de Phone Number [facility] [phone] * MR Head Archive for Reference Only (05/08/2025 6:57 PM EDT) Narrative [facility] 05/08/2025 6:57 PM EDT This study has been auto finalized and does not contain a result. us File Room Provider IMG DIGITIZE FILMS Final Resu lt Performing Organization Address City/[facility] [address]/ZIP Co de Phone Number NITIN [phone] from Last 3 Months Insurance [employer] MGD MEDICARE Advance Directives * Full Code (Latest Code Status on File) Date Activated Date Inactivated Comments 05/21/2025 11:21 AM * Full Code Date Activated Date Inactivated Comments 05/08/2025 10:02 PM 05/21/2025 11:21 AM Healthcare Agents on File Name Relationship Healthcare Agent Relationshi p Communication Geovanna Vasquez Adult child 1. Health Care Represe ntative Care Teams Truckload Owner Operator Relationship Specialty Start Date End Date Joi Rebollar MD [address] [place] [address] PCP - General Internal Medicine 05/08/25
--- OUTSIDE RECORDS SUMMARY | 2025-07-14 17:38 | XMS_ITS | Encounter Summary ---
Author Organization [facility] Address [address] [place] [address] Phone Care Team Providers Care Compliance Associate Name Role Phone Nessa Hillman NP Primary Care Provider +1- [phone] Lupillo Sinclari MD Unavailable [phone] Encounter Details Date Type Department Care Team ([facility] st Contact Info) Description 02/17/2025 Procedure Pass [facility] [address], [address], [address] [place] [address] Social History Tobacco Use Types Packs/Day Years [...] documented as of this encounter Care Teams Compliance Associate Relationship Specialty Start Date End Date Nessa Hillman NP [address] [place] [address] PCP - General Nurse Practitioner 06/03/24 Lupillo Sinclair MD [address] [address] Cardiology 12/24/24 documented as of this encounter Additional Source Comments The information contained in this document represents components of the legal health record. It is not the complete legal health record.[facility]
--- OUTSIDE RECORDS SUMMARY | 2025-07-14 17:38 | XMS_ITS | Encounter Summary ---
Author Organization [facility] Address [address] [place] [address] Phone Care Team Providers Care Business Objects Architect Name Role Phone Nessa Hillman NP Primary Care Provider [phone]- [phone] Lupillo Sinclair MD Unavailable [phone] Encounter Details Date Type Department Care Team (Late st Contact Info) Description 02/03/2025 Procedure Pass [facility] [address] [facility], 6th [place] [address] Social History Tobacco Use Types Packs/Day Years [...] as of this encounter Care Teams Business Objects Architect Relationship Specialty Start Date End Date Nessa Hillman NP [address] [place] [address] PCP - General Nurse Practitioner 06/03/24 Lupillo Sinclair MD [address] [address] Cardiology 12/24/24 documented as of this encounter Additional Source Comments The information contained in this document represents components of the legal health record. It is not the complete legal health record.[facility]
--- OUTSIDE RECORDS SUMMARY | 2025-07-14 17:38 | XMS_ITS | Encounter Summary ---
Author Organization [facility] Address [address] [place] [address] Phone Care Team Providers Care Customer Support Associate Name Role Phone Nessa Hillman NP Primary Care Provider [phone]- [phone] Lupillo Sinclair MD Unavailable [phone] Encounter Details Date Type Department Care Team (Late st Contact Info) Description 08/15/2024 Procedure Pass [facility] [address] [place] [address] Social History Tobacco Use Types [...] documented as of this encounter Care Teams Customer Support Associate Relationship Specialty Start Date End Date Nessa Hillman NP [address] [place] [address] PCP - General Nurse Practitioner 06/03/24 Lupillo Sinclair MD [address] [address] Cardiology 12/24/24 documented as of this encounter Additional Source Comments The information contained in this document represents components of the legal health record. It is not the complete legal health record.[facility]
--- OUTSIDE RECORDS SUMMARY | 2025-07-14 17:38 | XMS_ITS | Encounter Summary ---
Author Organization [facility] Address [address] [place] [address] Phone Care Team Providers Care Roof Cement And Paint Maker Name Role Phone Nessa Hillman NP Primary Care Provider [phone]- [phone] Lupillo Sinclair MD Unavailable [phone] Encounter Details Date Type Department Care Team (Late st Contact Info) Description 01/26/2025 Procedure Pass [facility] [place]IR [address] [facility], 2nd [place] [address] Social History Tobacco Use Types Packs/Day Years [...] 12:00 AM EDT Lulu Zhang RN * [place] Suicide Severity Rating Scale (Screener/Recent Self-Report) Question Answer Date of Assessment Author 1. Wish to be (Past 1 Month) No 01/26/2025 12:00 AM EDT Lulu Zhang, MECCA 2. Non-Specific Active Suicidal Thoughts (Past 1 Month) No 01/26/2025 12:00 AM EDT uLlu Zhang, MECCA 6. Suicidal Behavior (Lifetime) No [...] documented as of this encounter Care Teams Roof Cement And Paint Maker Relationship Specialty Start Date End Date Nessa Hillman NP [address] [place] [address] PCP - General Nurse Practitioner 06/03/24 Lupillo Sinclair MD [address] [address] Cardiology 12/24/24 documented as of this encounter Additional Source Comments The information contained in this document represents components of the legal health record. It is not the complete legal health record.[facility]
--- OUTSIDE RECORDS SUMMARY | 2025-07-14 17:38 | XMS_ITS | Encounter Summary ---
Author Organization [facility] Address [address] [place] [address] Phone Care Team Providers Care Motel Operator Name Role Phone Nessa Hillman NP Primary Care Provider [phone]- [phone] Lupillo Sinclair MD Unavailable [phone] Encounter Details Date Type Department Care Team (Late st Contact Info) Description 06/12/[address], [facility] [place] [address] [facility], [address] [place] [id number] Social History Tobacco Use Types Packs/Day Years [...] documented as of this encounter Care Teams Motel Operator Relationship Specialty Start Date End Date Nessa Hillman NP [address] [place] [address] PCP - General Nurse Practitioner 06/03/24 Lupillo Sinclair MD [address] [place] [address] Cardiology 12/24/24 documented as of this encounter Additional Source Comments The information contained in this document represents components of the legal health record. It is not the complete legal health record.[facility]
--- OUTSIDE RECORDS SUMMARY | 2025-07-14 17:38 | XMS_ITS | Encounter Summary ---
Author Organization [facility] Address [address] [place] [address] Phone Care Team Providers Care Tire Service Supervisor Name Role Phone Nessa Hillman NP Primary Care Provider [phone]- [phone] Lupillo Sinclair MD Unavailable [phone] Encounter Details Date Type Department Care Team (Late st Contact Info) Description 01/26/2025 Procedure Pass [facility] [place] [facility], [place] [address] [facility], 6th [place] [address] Social History Tobacco Use Types Packs/Day Years [...] 12:00 AM EDT Lulu Zhang RN * [place] Suicide Severity Rating Scale (Screener/Recent Self-Report) Question [...] documented as of this encounter Care Teams Tire Service Supervisor Relationship Specialty Start Date End Date Nessa Hillman NP [address] [place] [address] PCP - General Nurse Practitioner 06/03/24 Lupillo Sinclair MD [address] [address] Cardiology 12/24/24 documented as of this encounter Additional Source Comments The information contained in this document represents components of the legal health record. It is not the complete legal health record.[facility]
--- OUTSIDE RECORDS SUMMARY | 2025-07-14 17:38 | XMS_ITS | Encounter Summary ---
Author Organization [facility] Address [address] [place] [address] Phone Care Team Providers Care Cinder Crew Worker Name Role Phone Nessa Hillman NP Primary Care Provider [phone]- [phone] Lupillo Sinclair MD Unavailable [phone] Encounter Details Date Type Department Care Team (Late st Contact Info) Description 01/31/2025 Procedure Pass [facility] [place], [place] [address] [facility], 6th [place] [address] Social History Tobacco Use Types Packs/Day Years [...] documented as of this encounter Care Teams Cinder Crew Worker Relationship Specialty Start Date End Date Nessa Hillman NP [address] [place] [address] PCP - General Nurse Practitioner 06/03/24 Lupillo Sinclair MD [address] [address] Cardiology 12/24/24 documented as of this encounter Additional Source Comments The information contained in this document represents components of the legal health record. It is not the complete legal health record.[facility]
--- OUTSIDE RECORDS SUMMARY | 2025-07-14 17:38 | XMS_ITS | Encounter Summary ---
Author Organization [facility] Address [address] [place] [address] Phone Care Team Providers Care Insulation Installer Name Role Phone Nessa Hillman NP Primary Care Provider [phone]- [phone] Lupillo Sinclair MD Unavailable [phone] Encounter Details Date Type Department Care Team (Late st Contact Info) Description 01/26/2025 Procedure Pass [facility] [place] [address] [facility], 2nd [place] [address] Social History Tobacco Use Types Packs/Day Years [...] 12:00 AM EDT Lulu Zhang RN * [place] Suicide Severity Rating Scale (Screener/Recent Self-Report) Question [...] documented as of this encounter Care Teams Insulation Installer Relationship Specialty Start Date End Date Nessa Hillman NP [address] [place] [address] PCP - General Nurse Practitioner 06/03/24 Lupillo Sinclair MD [address] [address] Cardiology 12/24/24 documented as of this encounter Additional Source Comments The information contained in this document represents components of the legal health record. It is not the complete legal health record.[facility]
--- OUTSIDE RECORDS SUMMARY | 2025-07-14 17:38 | XMS_ITS | Encounter Summary ---
Author Organization [facility] Address [address] [place] [address] Phone Care Team Providers Care Trolley Car Operator Name Role Phone Nessa Hillman NP Primary Care Provider +1- [phone] Lupillo Sinclair MD Unavailable [phone] Encounter Details Date Type Department Care Team (Late st Contact Info) Description 01/25/2025 Procedure Pass [facility] US [address] [place] [address] Social History Tobacco Use Types Packs/Day Years [...] 12:00 AM EDT Lulu Zhang RN * [place] Suicide Severity Rating Scale (Screener/Recent Self-Report) Question [...] documented as of this encounter Care Teams Trolley Car Operator Relationship Specialty Start Date End Date Nessa Hillman NP [address] [place] [address] PCP - General Nurse Practitioner 06/03/24 Lupillo Sinclair MD [address] [address] Cardiology 12/24/24 documented as of this encounter Additional Source Comments The information contained in this document represents components of the legal health record. It is not the complete legal health record.[facility]
--- OUTSIDE RECORDS SUMMARY | 2025-07-14 17:38 | XMS_ITS | Encounter Summary ---
Author Organization [facility] Address [email or web address] [place] [address] Phone Care Team Providers Care Client Support Professional Name Role Phone Nessa Hillman NP Primary Care Provider +1- [phone] Lupillo Sinclari MD Unavailable [phone] Encounter Details Date Type Department Care Team (Late st Contact Info) Description 01/07/2025 Procedure Pass [facility] [address] [place] [phone] Social History Tobacco Use Types Packs/Day Years [...] 1:00 PM EDT Shelbi Jimenez, RN * [place] Suicide Severity Rating Scale (Screener/Recent Self-Report) Question [...] as of this encounter Care Teams Client Support Professional Relationship Specialty Start Date End Date Nessa Hillman NP [address] [place] [address] PCP - General Nurse Practitioner 06/03/24 Lupillo Sinclair MD [address] [place] [address] Cardiology 12/24/24 documented as of this encounter Additional Source Comments The information contained in this document represents components of the legal health record. It is not the complete legal health record.[facility]
--- OUTSIDE RECORDS SUMMARY | 2025-07-14 17:38 | XMS_ITS | Encounter Summary ---
Author Organization [facility] Address [address] [place] [address] Phone Care Team Providers Care Asbestos Abatement Worker Name Role Phone Nessa Hillman NP Primary Care Provider +1- [phone] Lupillo Sinclair MD Unavailable [phone] Encounter Details Date Type Department Care Team (Late st Contact Info) Description 02/17/2025 Procedure Pass [facility] [place] - RF/IR [address] [place] [address] Social History Tobacco Use Types Packs/Day Years [...] documented as of this encounter Care Teams Asbestos Abatement Worker Relationship Specialty Start Date End Date Nessa Hillman NP [address] [place] [address] PCP - General Nurse Practitioner 06/03/24 Lupillo Sinclair MD [address] [address] Cardiology 12/24/24 documented as of this encounter Additional Source Comments The information contained in this document represents components of the legal health record. It is not the complete legal health record.[facility]
--- OUTSIDE RECORDS SUMMARY | 2025-07-14 17:38 | XMS_ITS | Encounter Summary ---
Author Organization [facility] Address [address] [place] [address] Phone Care Team Providers Care Open Hearth Laborer Name Role Phone Nessa Hillman NP Primary Care Provider +1- [phone] Lupillo Sinclair MD Unavailable [phone] Encounter Details Date Type Department Care Team (Late st Contact Info) Description 01/26/2025 Procedure Pass [facility] [place] - [place]IR [address] [facility], 2nd [place] [address] Social History Tobacco Use Types Packs/Day Years [...] 12:00 AM EDT Lulu Zhang RN * [place] Suicide Severity Rating Scale (Screener/Recent Self-Report) Question [...] documented as of this encounter Care Teams Open Hearth Laborer Relationship Specialty Start Date End Date Nessa Hillman NP [address] [place] [address] PCP - General Nurse Practitioner 06/03/24 Lupillo Sinclair MD [address] [address] Cardiology 12/24/24 documented as of this encounter Additional Source Comments The information contained in this document represents components of the legal health record. It is not the complete legal health record.[facility]
== END 2025-07-14 15:33 | disposition home or self-care (01) ==
LOC: HO.HVNA 15:32
PROVIDERS: Visit Provider Internal Medicine Hypertension Specialist
DX: R19.8 Other specified symptoms and signs involving the digestive system and abdomen (principal); Z93.2 Ileostomy status
CPT/HCPCS: 36415; 80048; 83735; 84100

== ENCOUNTER 2025-08-26 10:24 | Outpatient (REF) | payer MEDICARE, SELFPAY ==
[2025-08-26 10:33] LABS: MANUAL DIFF FLAG NO
[2025-08-26 10:38] LABS: Hematocrit 32.0 % (37.0-47.0); Hemoglobin 10.0 g/dl (12.0-16.0); Imm Gran Abs Auto 0.07 X10*3/uL (0.00-0.03); Imm Gran Pct Auto 0.6 % (0.0-0.4); Lymphocytes Absolute Auto 1.9 X10*3/uL (1.2-4.9); Mean Corpuscular HGB Conc 31.3 g/dl (31.0-35.0); Mean Corpuscular Hemoglobin 30.2 pg (27.0-33.0); Mean Corpuscular Volume 96.7 fL (80.0-98.0); NRBC Abs Auto 0.000 X10*3/uL (0.0-0.012); NRBC Pct Auto 0.0 /100WBC (0.0-0.2); Platelet Count 221 X10*3/uL (160-400); Red Blood Count 3.31 X10*6/uL (4.20-5.50); White Blood Count 11.3 X10*3/uL (4.8-10.8)
[2025-08-26 11:37] LABS: Alanine Aminotransferase 69 U/L (0-31); Albumin Level 3.3 g/dL (3.5-5.0); Alkaline Phosphatase 242 U/L (39-117); Anion Gap 8 (12-20); Aspartate Amino Transferase 90 U/L (5-31); Blood Urea Nitrogen 23 mg/dL (9-16); Calcium 8.4 mg/dL (8.4-10.2); Carbon Dioxide 19 mmol/L (22-29); Chloride 115 mmol/L (96-108); Cholesterol 89 mg/dL (<200); Estimated Glomerular Filt Rate > 60; HDL Cholesterol 37 mg/dL (>40); Iron 78 mcg/dL (30-160); Magnesium 1.8 mg/dL (1.6-2.6); Percent Iron Saturation 27 % (15-50); Potassium 3.8 mmol/L (3.3-5.1); Sodium 138 mmol/L (135-145); Total Iron Binding Capacity 288 mcg/dL (228-428); Total Protein 7.0 g/dL (6.5-8.0); Triglycerides 70 mg/dL (<150); Unsaturated Iron Binding 210 ug/dL
--- OUTSIDE RECORDS SUMMARY | 2025-08-26 11:45 | XMS_ITS | Continuity of Care Document ---
Author Organization Formerly [facility], [place] Taver[facility] 2nd floor Address [address] [place] [place] [address] Care Team Providers Care Financial Services Manager Name Role Phone Joi Garay Primary Care Provider [phone] Assessment No assessment recorded. Plan of Treatment Reminders Order Date Submit Date Provider Name Organization Details Last Modified By Last Modified Time Details Appointments RECHEC K 10 2025 01:50P M Abdirahman Kimbrough PA-C Not available Not available Not available Lab None record ed. Referral None record ed. Procedures None record ed. Surgeries None record ed. Imaging None record ed. MedicationOrders None record ed. VaccineOrders None record ed. Patient TargetsNo targets recorded. Patient InstructionsNo instructions recorded. Reason for Referral None Reported. Problems Name Problem SNOMED Code Status Onset Date Resolution Date Notes Provider Name and Address Organization Details Recorded Time Osteoarthritis of knee 694378594 Active 2023 Abdirahman Kimbrough PA-C [address], [place], [address], [facility] 4 07:06:53 Unintentional weight loss [id number] Active 2024 Abdirahman Kimbrough PA-C [address], [place], [address], [facility] 5 05:18:25 Problem Notes None recorded. Procedures Surgical History Date Name Laterality Status Provider Name and Address Organization Details Recorded Time Knee Kenalog 40 1cc Injection, Bilateral completed Abdirahman Kimbrough PA-C [address], [place], [address], [facility] 08/13/2025 06:36:25 5 Knee Kenalog 40 1cc Injection, Bilateral completed Abdirahman Kimbrough PA-C [address], [place], [address], [facility] 10/21/2024 08:15:18 4 Knee Kenalog 40 1cc Injection, Bilateral completed Abdirahman Kimbrough PA-C [address], [place], [address], [facility] 07/22/2024 07:59:12 4 Knee Kenalog 40 1cc Injection, Bilateral completed Abdirahman Kimbrough PA-C [address], [place], [address], [facility] 04/23/2024 05:33:06 4 Knee Kenalog 40 1cc Injection, Bilateral completed Abdirahman Kimbrough PA-C [address], [place], [address], [facility] 01/15/2024 07:07:11 Imaging Results None recorded. Procedure Notes None recorded. Medical Equipment None Reported. Allergies Allergen ID Allergen Name Allergen Category Reaction Reaction Severity Criticality Documentation Date Start Date Code Code System Note Provider Name and Address Organization Details Recorded Time 752950 ibuprofen medicatio n Not available Not available Not available 08/13/2025 5640 RxNorm Not Available [facility] - External Data Service - prod 03:40:05 635424 erythromy florentin medicatio n Not available Not available Not available 08/13/2025 4053 RxNorm Not Available [facility] - External Data Service - prod 03:40:05 729195 sulfameth oxazole medicatio n Not available Not available Not available 08/13/2025 38085 RxNorm unrec ogniz ed react ion (text : Anaph ylact ic shock , due to adver se effec t of corre ct medic inal subst ance prope rly admin ister ed (diso rder) , code: 54469 7003) (from exter nal sour e) Not Available [facility] - External Data Service - prod 5 03:40:05 998864 aspirin medicatio n Not available Not available Not available 08/13/2025 1191 RxNorm Not Available [facility] - External Data Service - prod 5 03:40:05 609146 melatonin medicatio n Not available Not available Not available 08/13/2025 6711 RxNorm nause a & shaki ness Not Available [facility] - External Data Service - prod 5 03:40:05 250413 Iodinated contrast media (substanc e) medicatio n Not available Not available Not available 08/13/2025 14464 2004 SNOMED Not Available [facility] - External Data Service - prod 5 03:40:05 266997 amoxicill in / clavulana te medicatio n Not available Not available Not available 08/13/2025 75490 RxNorm per patie nt, [place] with Amoxi cilli n and Penic illin , NOT Augme ntin. Not Available [facility] - External Data Service - prod 5 03:40:05 068137 salicylic acid / sulfur medicatio n Not available Not available Not available 08/13/2025 75875 3 RxNorm Not Available [facility] - External Data Service - prod 5 03:40:05 850171 trazodone medicatio n Not available Not available Not available 08/13/2025 95716 RxNorm QT prolo ngati on Not Available [facility] - External Data Service - prod 5 03:40:05 392480 azithromy florentin medicatio n Not available Not available Not available 08/13/20252016 20744 RxNorm Other react ion(s ): swell ing, hard to breat h Not Available [facility] - External Data Service - prod 5 03:40:40 835300 codeine medicatio n Not available Not available Not available 08/13/20252016 2670 RxNorm Other react ion(s ): stoma ch pain Not Available [facility] - External Data Service - prod 5 03:40:40 656963 Shellfish (substanc e) food,medi cation Not available Not available Not available 08/13/20252019 72593 9006 SNOMED unrec ogniz ed react ion (text : Unkno wn, code: 75996 5006) (from exter nal sourc e) Not Available [facility] - External Data Service - prod 5 03:40:40 24812 Non-stero idal anti-infl ammatory agent (substanc e) medicatio n Not available Not available Not available 11/06/20232022 43338 5008 SNOMED Not Available [facility] 4 13:16:37 91944 Augmentin medicatio n Not available Not available Not available 11/06/20232015 33080 2 RxNorm Not Available [facility] 4 13:16:37 43290 erythromy florentin medicatio n Not available Not available Not available 11/06/20232020 4053 RxNorm Not Available [facility] 4 13:16:37 35430 aspirin medicatio n Not available Not available Not available 11/06/20232015 1191 RxNorm Not Available [facility] 4 13:16:38 71949 Substance with sulfonami de structure and antibacte rial mechanism of action (substanc e) medicatio n Not available Not available Not available 11/06/20232015 84114 8003 SNOMED Not Available [facility] 4 13:16:38 Medications Name Authored On Sig Start Date Stop Date Status Note Indication Fill Status Repeat Number Dispense Quantity LastModified by Organization Details LastModified Time amlod ipine 5 mg table t 4 10:45:41 TAKE 1 TABL ET BY MOUT H EVER Y DAY active Not Available Not availab le 0 Not Available Not Available [facility] 01/15/2024 10:45:41 atorv astat in 80 mg table t 4 10:45:41 TAKE 1 TABL ET BY MOUT H EVER Y DAY active Not Available Not availab le 0 Not Available Not Available [facility] 01/15/2024 10:45:41 justa us sulfa te 325 mg (65 mg iron) table t 4 10:45:41 TAKE 1 TAB ORAL LY KIRILL Y AT [facility] active Not Available Not availab le 0 Not Available Not Available [facility] 01/15/2024 10:45:41 fluti jorge e propi krista 50 mcg/a ctuat ion nasal spray ,susp ensio n 4 10:45:41 SPRA Y 1 SPRA Y INTO EACH NOST RIL EVER Y DAY active Not Available Not availab le 0 Not Available Not Available [facility] 01/15/2024 10:45:41 Gavil ax 17 gram/ dose oral powde r 4 10:45:41 DRIN K 238 GRAM S BY MOUT H ONCE DIRE CTED BY JOHNNY BANGURA DEPA RTME NT AT [facility] ER active Not Available Not availab le 0 Not Available Not Available [facility] 01/15/2024 10:45:41 Laxat suresh (bisa codyl ) 5 mg table t,del ayed relea se 4 10:45:41 TAKE 2 TABL ETS BY MOUT H AT [facility] active Not Available Not availab le 0 Not Available Not Available [facility] 01/15/2024 10:45:41 loraz epam 0.5 mg table t 4 10:45:41 TAKE 1 TABL ET BY MOUT H EVER Y 8 HOUR S NEED ED FOR ANXI ETY active Not Available Not availab le 0 Not Available Not Available [facility] 01/15/2024 10:45:41 loraz epam 1 mg table t 4 10:45:41 TAKE 1 TABL ET BY MOUT H EVER Y DAY NEED ED FOR ANXI ETY FOR 30 DAYS active Not Available Not availab le 0 Not Available Not Available [facility] 01/15/2024 10:45:41 metop rolol succi ainsley ER 100 mg table t,ext ended relea se 24 hr 4 10:45:41 TAKE 1 AND 1/2 TABL ETS BY MOUT H KIRILL Y active Not Available Not availab le 0 Not Available Not Available [facility] 01/15/2024 10:45:41 santos zapin e 7.5 mg table t 4 10:45:41 TAKE 1 TABL ET BY MOUT H KEIRY ARGUETA AT [facility]. active Not Available Not availab le 0 Not Available Not Available [facility] 01/15/2024 10:45:41 nysta tin 100,0 00 unit/ gram topic al powde r 4 10:45:41 APPL Y TOPI CALL Y TO AFFE CTED AREA TWO TIME S A DAY active Not Available Not availab le 0 Not Available Not Available [facility] 01/15/2024 10:45:41 potas sium chlor john ER 20 mEq table t,ext ended relea se 4 10:45:41 TAKE 1 TABL ET BY MOUT H EVER Y DAY active Not Available Not availab le 0 Not Available Not Available [facility] 01/15/2024 10:45:41 potas sium chlor john ER 10 mEq capsu le,ex tende d relea se 4 06:15:27 TAKE ONE CAPS ULE BY MOUT H TWIC E A DAY active Not Available Not availab le 0 Not Available Not Available [facility] 04/23/2024 06:15:27 carve dilol 3.125 mg table t 5 05:51:44 TAKE ONE TABL ET BY MOUT H TWIC E A DAY FOR HYPE RTEN ARACELI . active Not Available Not availab le 0 Not Available Not Available [facility] 10/21/2024 05:51:44 GaviL yte-G 236 gram- 22.74 gram- 6.74 gram- 5.86 gram oral solut ion 5 15:35:33 TAKE 4000 ML BY MOUT H ONCE FOR ONE DOSE active Not Available Not availab le 0 Not Available Not Available [facility] - External Data Service - prod 02/02/2025 15:35:33 magne sium 100 mg (as glyci ainsley) capsu le 5 15:35:33 TAKE 4 CAPS ULES BY MOUT H KIRILL Y. active Not Available Not availab le 0 Not Available Not Available [facility] - External Data Service - prod 02/02/2025 15:35:33 metro nidaz ole 500 mg table t 5 15:35:33 TAKE ONE TABL ET BY MOUT H THRE E TIME S A DAY, TAKE AT 5PM, 6PM, AND 8PM, ON THE NIG T BEFO RE YOUR SURG RAO active Not Available Not availab le 0 Not Available Not Available [facility] - External Data Service - prod 02/02/2025 15:35:33 neomy florentin 500 mg table t 5 15:35:33 TAKE TWO TABL ETS BY MOUT H THRE E TIME S A DAY TAKE AT 5PM, 6PM, AND 8PM, ON THE [facility] T BEFO RE YOUR SURG RAO active Not Available Not availab le 0 Not Available Not Available [facility] - External Data Service - prod 02/02/2025 15:35:33 esome prazo le magne sium 20 mg capsu le,de layed relea se 5 14:02:57 TAKE ONE CAPS ULE BY MOUT H EVER Y DAY active Not Available Not availab le 0 Not Available Not Available [facility] - External Data Service - prod 08/10/2025 14:02:57 folic acid 1 mg table t 5 14:02:57 TAKE 1 TABL ET BY MOUT H KIRILL Y. active Not Available Not availab le 0 Not Available Not Available [facility] - External Data Service - prod 08/10/2025 14:02:57 metop rolol succi ainsley ER 25 mg table t,ext ended relea se 24 hr 5 14:02:57 TAKE ONE TABL ET BY MOUT H EVER Y DAY active Not Available Not availab le 0 Not Available Not Available [facility] - External Data Service - prod 08/10/2025 14:02:57 santos zapin e 15 mg table t 5 14:02:57 TAKE ONE TABL ET BY MOUT H KIRILL Y AT [facility] active Not Available Not availab le 0 Not Available Not Available [facility] - External Data Service - prod 08/10/2025 14:02:57 Vitam in B-1 100 mg table t 5 14:02:57 TAKE 1/2 TABL ET 50 MG) BY MOUT H KIRILL Y active Not Available Not availab le 0 Not Available Not Available [facility] - External Data Service - prod 08/10/2025 14:02:57 atorv astat in 20 mg table t 5 14:02:58 TAKE ONE TABL ET BY MOUT H EVER Y DAY active Not Available Not availab le 0 Not Available Not Available [facility] - External Data Service - prod 08/10/2025 14:02:58 Eliqu is 5 mg table t 14:02:58 TAKE ONE TABL ET BY MOUT H TWIC E A DAY active Not Available Not availab le 0 Not Available Not Available [facility] - External Data Service - prod 08/10/2025 14:02:58 magne sium oxide 400 mg (241. 3 mg magne sium) table t 14:02:58 TAKE TWO TABL ETS BY MOUT H TWIC E A DAY active Not Available Not availab le 0 Not Available Not Available [facility] - External Data Service - prod 08/10/2025 14:02:58 ondan setro n 8 mg disin tegra ting table t 5 14:02:58 DISS OLVE ONE TABL ET BY MOUT H EVER Y 12 HOUR S NEED ED FOR NAUS EA & VOMI TING . active Not Available Not availab le 0 Not Available Not Available [facility] - External Data Service - prod 08/10/2025 14:02:58 Citra rakan-D 3 Slow Relea se 600 mg-12 .5 mcg (500 unit) table t,ext end. rel 14:02:59 TAKE ONE TABL ET BY MOUT H EVER Y DAY active Not Available Not availab le 0 Not Available Not Available [facility] - External Data Service - prod 08/10/2025 14:02:59 diclo fenac 1 % topic al gel 14:02:59 APPL Y 2 GRAM S TOPI CALL Y 4 TIME S A DAY NEED ED KNEE PAIN ); USE DOSI NG CARD TO HECTOR URE DOSE ; APPL Y TO ENTI RE AFFE CTED AREA . active Not Available Not availab le 0 Not Available Not Available [facility] - External Data Service - prod 08/10/2025 14:02:59 Gentl e Iron 28 mg iron- 60 mg-40 0 mcg-8 mcg capsu le 5 14:02:59 TAKE ONE CAPS ULE BY MOUT H EVER Y DAY active Not Available Not availab le 0 Not Available Not Available [facility] - External Data Service - prod 08/10/2025 14:02:59 ondan setro n 4 mg disin tegra ting table t 5 14:02:59 TAKE 1 TABL ET 4 MG TOTA L) BY MOUT H KIRILL Y NEED ED FOR NAUS EA OR VOMI TING . PLAC E TABL ET ON TONG UE TO DISS OLVE . active Not Available Not availab le 0 Not Available Not Available [facility] - External Data Service - prod 08/10/2025 14:02:59 ondan setro n HCl 4 mg table t 5 14:03:00 TAKE ONE TABL ET BY MOUT H EVER Y DAY NEED ED FOR NAUS EA AND VOMI TING active Not Available Not availab le 0 Not Available Not Available [facility] - External Data Service - prod 08/10/2025 14:03:00 amiod arone 200 mg table t 5 14:03:00 TAKE ONE TABL ET BY MOUT H EVER Y DAY 08/13 aborted Not Available Not availab le 0 Not Available Abdirahman Kimbrough PA-C [address], [place], [address], [facility] 08/13/2025 13:41:10 caris oprod ol 350 mg table t 5 14:02:58 TAKE ONE TABL ET BY MOUT H KIRILL Y AT [facility] FOR MUSC LE PAIN 08/13 aborted Not Available Not availab le 0 Not Available Abdirahman Kimbrough PA-C [address], [place], [address], [facility] 08/13/2025 13:41:18 carve dilol 6.25 mg table t 5 05:51:44 TAKE ONE TABL ET BY MOUT H TWIC E A DAY. MUST ADMI NIST ER WITH A MEAL 08/13 aborted Not Available Not availab le 0 Not Available Abdirahman Kimbrough PA-C [address], [place], [address], [facility] 08/13/2025 13:41:28 cipro floxa florentin 500 mg table t 4 10:45:41 TAKE 1 TABL ET BY MOUT H EVER Y 12 HOUR S FOR 7 DAYS 08/13 aborted Not Available Not availab le 0 Not Available Abdirahman Kimbrough PA-C [address], [place], [address], [facility] 08/13/2025 13:41:31 cloni dine HCl 0.1 mg table t 4 10:45:41 TAKE 1 TABL ET BY MOUT H EVER AT [facility] 08/13 aborted Not Available Not availab le 0 Not Available Abdirahman Kimbrough PA-C [address], [place], [address], [facility] 08/13/2025 13:41:41 colch icine 0.6 mg table t 5 14:03:00 TAKE ONE TABL ET BY MOUT H EVER Y 08/13 aborted Not Available Not availab le 0 Not Available Abdirahman Kimbrough PA-C [address], [place], [address], [facility] 08/13/2025 13:41:53 diaze ariadne 2 mg table t 5 14:02:58 TAKE 1/2 TABL ET 1 MG.) BY MOUT H AT [facility] NEED ED FOR DIFF ICUL TY SLEE PING /ANX IETY . 08/13 aborted Not Available Not availab le 0 Not Available Abdirahman Kimbrough PA-C [address], [place], [address], [facility] 08/13/2025 13:42:00 gabap entin 100 mg capsu le 5 14:03:00 TAKE ONE CAPS ULE BY MOUT H EVER Y 8 HOUR S FOR 7 DAYS 08/13 aborted Not Available Not availab le 0 Not Available Abdirahman Kimbrough PA-C [address], [place], [address], [facility] 08/13/2025 13:42:15 hydro chlor othia zide 25 mg table t 4 06:15:27 TAKE 1 TABL ET (25 MG TOTA L) BY ADAN Linn. 08/13 aborted Not Available Not availab le 0 Not Available Abdirahman Kimbrough PA-C [address], [place], [address], [facility] 08/13/2025 13:42:28 hydro codon e 5 mg-ac etami nophe n 325 mg table t 4 10:45:41 TAKE 1 TABL ET BY ADAN CURTIS Y 4 HOUR S NEED ED FOR PAIN 08/13 aborted Not Available Not availab le 0 Not Available Abdirahman Kimbrough PA-C [address], [place], [address], [facility] 08/13/2025 13:42:34 hydro morph one 2 mg table t 5 14:02:59 TAKE ONE TABL ET BY ADAN Linn NEED ED FOR PAIN . 08/13 aborted Not Available Not availab le 0 Not Available Abdirahman Kimbrough PA-C [address], [place], [address], [facility] 08/13/2025 13:42:38 hydro morph one 4 mg table t 5 14:03:00 TAKE ONE TABL ET BY ADAN CURTIS Y 4 HOUR S NEED ED FOR PAIN 08/13 aborted Not Available Not availab le 0 Not Available Abdirahman Kimbrough PA-C [address], [place], [address], [facility] 08/13/2025 13:42:41 lidoc errol 5 % topic al patch 4 10:45:41 APPL Y 2 PATC HES DIOR SDER MAL EVER Y MORN ING. OFF FOR 12 HOUR S 08/13 aborted Not Available Not availab le 0 Not Available Abdirahman Kimbrough PA-C [address], [place], [address], [facility] 08/13/2025 13:42:48 lisin opril 30 mg table t 10:45:41 TAKE 1 TABL ET BY ADAN CURTIS Y DAY 08/13 aborted Not Available Not availab le 0 Not Available Abdirahman Kimbrough PA-C [address], [place], [address], [facility] 08/13/2025 13:42:52 losar briggs 25 mg table t 4 10:45:41 TAKE 1 TABL ET BY ADAN CURTIS Y DAY 08/13 aborted Not Available Not availab le 0 Not Available Abdirahman Kimbrough PA-C [address], [place], [address], [facility] 08/13/2025 13:42:56 metro nidaz ole 375 mg capsu le 4 10:45:41 TAKE 2 TABS AT 2 PM, 2 TABS AT 3PM AND 2 TABS AT 11PM THE DAY BEFO RE SURG RAO 08/13 aborted Not Available Not availab le 0 Not Available Abdirahman Kimbrough PA-C [address], [place], [address], [facility] 08/13/2025 13:43:16 panto prazo le 40 mg table t,del ayed relea se 5 14:02:59 TAKE ONE TABL ET BY ADAN Linn. 08/13 aborted Not Available Not availab le 0 Not Available Abdirahman Kimbrough PA-C [address], [place], [address], [facility] 08/13/2025 13:43:41 Potas sium Chlor john ER 4 09:05:41 Pota ssiu m Chlo ride ER 10ME Q Caps ule Exte nded Rele ase 08/13 aborted Statu s: 'Curr ent'; Not Available Not availab le 0 Not Available Abdirahman Kimbrough PA-C [address], [place], [address], [facility] 08/13/2025 13:43:45 predn isone 50 mg table t 4 06:07:51 TAKE 1 TABL ET BY ADAN Bhat 13 HOUR S, 7 HOUR S THEN 1 HOUR BEFO RE YOUR APPO INTM ENT WHER E YOU WILL BE RECE IVIN G IV CONT RAST DYE FOR YOUR IMAG ING ST 08/13 aborted Not Available Not availab le 0 Not Available Abdirahman Kimbrough PA-C [address], [place], [address], [facility] 08/13/2025 13:43:51 grace mack 8 mg table t 5 14:02:59 TAKE 1 TABL ET BY ADAN LRY NEED ED FOR SLEE P. 08/13 aborted Not Available Not availab le 0 Not Available Abdirahman Kimbrough PA-C [address], [place], [address], [facility] 08/13/2025 13:43:55 sodiu m bicar bonat e 650 mg table t 5 05:51:44 DISS OLVE AND TAKE ONE TABL ET BY ADAN ROY Y NEED ED FOR STOM ACH UPSE T. 08/13 aborted Not Available Not availab le 0 Not Available Abdirahman Kimbrough PA-C [address], [place], [address], [facility] 08/13/2025 13:43:58 juno nolac tone 25 mg table t 4 06:15:27 08/13 aborted Not Available Not availab le 0 Not Available Abdirahman Kimbrough PA-C [address], [place], [address], [facility] 08/13/2025 13:44:03 trazo done 100 mg table t 4 10:45:41 TAKE 2 TABL ETS BY ADAN Linn AT [facility], X30 DAYS 08/13 aborted Not Available Not availab le 0 Not Available Abdirahman Kimbrough PA-C [address], [place], [address], [facility] 08/13/2025 13:44:06 zolpi dem 5 mg table t 5 14:02:58 TAKE ONE TABL ET BY ADAN Linn AT [facility] NEED ED FOR INSO MNIA 08/13 aborted Not Available Not availab le 0 Not Available Abdirahman Kimbrough PA-C [address] [facility], [place], [address], [facility] 08/13/2025 13:44:14 Vitals Date Recorded Body height Body mass index (BMI) Body weight Provider Name and Address Organization Details Last Updated DateTime 08/13/2025 157.48 cm 32 kg/m2 57467.66 g Abdirahman Kimbrough PA-C [address] [facility], [place], [address] [place] [address] [facility] 08/13/2025 13:44:47 Social History Question Answer Notes LastModified by Organizat ion Details LastModified Time Tobacco Smoking Status Never Smoker Abdirahman Kimbrough PA-C [address], [place], [address], [facility] 08/13/2025 13:45:14 What Is Your Level Of Alcohol Consumption? None Abdirahman Kimbrough PA-C [address], [place], [address], [facility] 08/13/2025 13:45:14 Which illicit or recreational drugs have you used? marijuana Abdirahman Kimbrough PA-C [address], [place], [address], [facility] 08/13/2025 13:45:14 What is your relationship status? Abdirahman Kimbrough PA-C [address], [place], [address], [facility] 08/13/2025 13:45:15 Social History Observation Description Date Observed Sex Unknown 08/13/2025 Legal Sex Female Status Not (finding) 08/26/20 25 No social history survey screeners recorded No social history SDOH screeners recorded Functional Status Question Answer Note LastModified by Organizat ion Details LastModified Time What is your level of alcohol consumption? None Abdirahman Kimbrough PA-C [address], [place], [address] 08/13/2025 13:45:14 Do you use any illicit or recreational drugs? Yes Abdirahman Kimbrough PA-C [address], [place], [address], [facility] 08/13/2025 13:45:14 No Functional Screening assessment recorded No Functional SDOH screeners recorded Mental Status None recorded. No Mental Screening assessment recorded No Mental SDOH screeners recorded Family History Nothing Reported. Medical History Condition Response Gastrointestinal Disease Y Heart Attack ([place]) Y Kidney/Bladder Problems Y Seizures/Epilepsy N Gynecological HistoryNo gynecological history recorded. Obstetrics History GPAL:G 0 P 0 0 0 0 Past Encounters Encounter ID Performer Location Encounter Start Date Encounter Closed Date Diagnosis/Indication Diagnosis SNOMED-CT Code Diagnosis ICD10 Code Diagnosis IMO Codes Diagnosis Note [id number] Abdirahman Kimbrough PA-C [facility] [address] [place] [address] 08/13/2025 12:47:12 08/22/2025 07:55:50 Osteoarthritis of knee 041997826 M17.9 Unintentio nal weight loss 782073548 R63.4 [id number] Health Concerns Section Related Observation LastModified by Organization Detai ls LastModified Time None Recorded Concern Status LastModified by Organization Details LastModified Time None Recorded SDOH Concern Status LastModified by Organization Detai ls LastModified Time None Recorded Payers Encounter Date Sequence Insurance Name Policy Number Policy Mendoza Covered Member ID Mendoza Member ID Guarantor Name 08/13/2025 1 [employer] (MEDICARE REPLACEMENT/ ADVANTAGE - PPO) [id number] Kia Phelps [id number] Kia Phelps Notes Date Note Type Note Provider Name and Address Organization Details Recorded Time 08/13/2025 text/html I am seeing the patient today under the supervision of Dr. Blackwell who was available but who did not [...] secondary to her knee arthritis.Clinical uptake: Patient returns today for follow-up evaluation, she has had a very complicated 6 months, she was hospitalized for several months she is having a variety of issues regarding her health, she is a walker when she walks, about as she has lost a lot of her strength and is having some progressive weakness. PMH/PSH/MEDS/ALL/FMH /SOC HX/ ROS: All reviewed in [...] 4 views ordered and independently reviewed at [facility] of the taken previously show advanced medial compartment and patellofemoral osteoarthritis Assessment: End-stage medial compartment osteoarthritis, severe weight loss Plan: The patient was thoroughly counseled today regarding their knee condition, its natural history, and the treatment options both nonoperative and operative. The patient is interested in receiving an injection with corticosteroid. Reemphasized the benefits of physical therapy, she currently attending cardiac rehabilitation. Abdirahman Kimbrough PA-C [address] [facility] [address], [place], [address], [facility] - [facility] 08/14/2025 05:18:51 Care Team Name Role Member ID Specialty Address Phone JOI GARAY MD Primary Care Provider [id number] [facility] Fernando Juan [place] OBGyn Episode No OBEpisode recorded.
--- OUTSIDE RECORDS SUMMARY | 2025-08-26 11:45 | XMS_ITS | Encounter Summary ---
Author Organization [facility] Address [email or web address] [place] [address] Phone Care Team Providers Care Time Clock Inspector Name Role Phone Nessa Hillman NP Primary Care Provider [phone]- [phone] Lupillo Sinclair MD Unavailable [phone] Encounter Details Date Type Department Care Team (Late st Contact Info) Description 01/25/2025 Procedure Pass [facility] Cardiac Ultrasound [address] [place] [address] Social History Tobacco Use Types Packs/Day Years [...] documented as of this encounter Care Teams Time Clock Inspector Relationship Specialty Start Date End Date Nessa Hillman NP [address] [place] [address] PCP - General Nurse Practitioner 06/03/24 Lupillo Sinclair MD [address] [address] Cardiology 12/24/24 documented as of this encounter Additional Source Comments The information contained in this document represents components of the legal health record. It is not the complete legal health record.[facility]
--- OUTSIDE RECORDS SUMMARY | 2025-08-26 11:45 | XMS_ITS | Encounter Summary ---
Author Organization [facility] Address [address] [place] [address] Phone Care Team Providers Care Facilities Engineering Manager Name Role Phone Nessa Hillman NP Primary Care Provider +1- [phone] Lupillo Sinclair MD Unavailable [phone] Encounter Details Date Type Department Care Team (Late st Contact Info) Description 01/26/2025 Procedure Pass [facility] [place] - [place]IR [address] [facility], [address]nd [place] [address] Social History Tobacco Use Types Packs/Day Years [...] documented as of this encounter Care Teams Facilities Engineering Manager Relationship Specialty Start Date End Date Nessa Hillman NP [address] [place] [address] PCP - General Nurse Practitioner 06/03/24 Lupillo Sinclair MD [address] [address] Cardiology 12/24/24 documented as of this encounter Additional Source Comments The information contained in this document represents components of the legal health record. It is not the complete legal health record.[facility]
--- OUTSIDE RECORDS SUMMARY | 2025-08-26 11:45 | XMS_ITS | Encounter Summary ---
Author Organization [facility] Address [address] [place] [address] Phone Care Team Providers Care Sterile Supervisor Name Role Phone Nessa Hillman NP Primary Care Provider [phone]- [phone] Lupillo Sinclair MD Unavailable [phone] Encounter Details Date Type Department Care Team (Late st Contact Info) Description 01/26/2025 Procedure Pass [facility] [place]IR [address] [facility], [address]nd [place] [address] Social History Tobacco Use Types Packs/Day Years [...] documented as of this encounter Care Teams Sterile Supervisor Relationship Specialty Start Date End Date Nessa Hillman NP [address] [place] [address] PCP - General Nurse Practitioner 06/03/24 Lupillo Sinclair MD [address] [address] Cardiology 12/24/24 documented as of this encounter Additional Source Comments The information contained in this document represents components of the legal health record. It is not the complete legal health record.[facility]
--- OUTSIDE RECORDS SUMMARY | 2025-08-26 11:45 | XMS_ITS | Clinical Summary ---
Author Organization [facility] Address [address] [place] [address] Phone Care Team Providers Care Charge Entry Name Role Phone Nessa Hillman NP Primary Care Provider +1- [phone] Lupillo Sinclair MD Unavailable [phone] Allergies Active Allergy Reactions Criticality Noted Date [...] She did have a cardiac catheterization at [facility] that took place in May 2023 which [...] DEPRESSION SCREENING 1971 HEPATITIS C SCREENING 1977 COLOGUARD 02/07/2004 FIT TEST 02/07/2004 FOBT 02/07/2004 VIRTUAL COLONOSCOPY 02/07/2004 LUNG CANCER SCREENING (LDCT Only) 2009 MAMMOGRAM 12/07/2015 12/06/2013 LIPID PANEL 09/11/2020 09/11/2015 COLONOSCOPY 04/06/2022 04/06/2012 OSTEOPOROSIS SCREENING INITIAL (ONE-TIME) 02/07/2024 Adult Td,Tdap Booster 05/23/2024 05/23/2014 BLOOD PRESSURE 12/11/2024 06/12/2024 INFLUENZA VACCINE (#1) 2025 4, 06/06/2023, 06/28/2022, Additional history exists COVID-19 VACCINE ( season) 2025 06/30/2024, 10/01/2022, 07/10/2021, Additional history exists SMOKING Hx and SMOKELESS TOBACCO SCREENING 01/07/2026 01/07/2025 SCREENING FOR DIABETES 03/27/2028 03/27/2025 COLORECTAL CANCER SCREENING 08/15/2029 SIGMOIDOSCOPY 08/15/2029 08/15/2024 RSV VACCINE Completed 06/01/2024 ZOSTER VACCINES Completed 09/14/2024, 06/30/2024 PNEUMOCOCCAL VACCINES (50+ years) Completed 12/19/2024 HEPATITIS A VACCINES Aged Out No long er eligible based on patient's age to complete this topic HIB VACCINES Aged Out No longer eligi [...] Lehman MD - 08/15/2024 9:33 AM EST [facility] Gastrointestinal Endoscopy Unit Patient Name: Kia Phelps Exam Date: 08/15/2024 9:33 AM Date of : 1960 Admit Type: Outpatient Age: 64 Room: [place] [id number] Gender: Female Note Status: Finalized Attending MD: [...] procedure. Anesthesia administered sedation. Kadeem Lehman MD, [id number] 08/15/2024 10:16:46 AM Number of Addenda: 0 Note Initiated On: 08/15/2024 9:33 AM Nessa Hillman FOREST NURSERY WORKER GI PROCEDURE ORDERABLES Fi nal Result * [...] Advance Directives For more information, please contact: [phone] (9AM - 5PM [facility], Monday-Monday) Documents on File Type Date Recorded Patient Casing Trimmer Expl anation Healthcare Proxy 02/20/2025 4:01 PM * Full Code (Latest Code Status on File) Date Activated Date Inactivated Comments 01/07/2025 6:43 PM Question Answer Comments Code Status Confirmed With: Patient Care Teams Charge Entry Relationship Specialty Start Date End Date Nessa Hillman NP [address] [place] [address] PCP - General Nurse Practitioner 06/03/24 Lupillo Sinclair MD [address] [address] [place] [address] Cardiology 12/24/24 Additional Source Comments The information contained in this document represents components of the legal health record. It is not the complete legal health record.[facility]
--- OUTSIDE RECORDS SUMMARY | 2025-08-26 11:45 | XMS_ITS | Encounter Summary ---
Author Organization [facility] Address [address] [place] [address] Phone Care Team Providers Care Stem Cleaning Machine Feeder Name Role Phone Nessa Hillman NP Primary Care Provider [phone]- [phone] Lupillo Sinclair MD Unavailable [phone] Encounter Details Date Type Department Care Team (Late st Contact Info) Description 02/04/2025 Procedure Pass [facility] [place] - RF/IR [address] [facility], 2nd [place] [address] Social History Tobacco Use Types Packs/Day Years [...] documented as of this encounter Care Teams Stem Cleaning Machine Feeder Relationship Specialty Start Date End Date Nessa Hillman NP [address] [place] [address] PCP - General Nurse Practitioner 06/03/24 Lupillo Sinclair MD [address] [address] Cardiology 12/24/24 documented as of this encounter Additional Source Comments The information contained in this document represents components of the legal health record. It is not the complete legal health record.[facility]
--- OUTSIDE RECORDS SUMMARY | 2025-08-26 11:45 | XMS_ITS | Encounter Summary ---
Author Organization [facility] Address [address] [place] [address] Phone Care Team Providers Care Stuffing Machine Operator Name Role Phone Nessa Hillman NP Primary Care Provider [phone]- [phone] Lupillo Sinclair MD Unavailable [phone] Encounter Details Date Type Department Care Team (Late st Contact Info) Description 01/07/2025 Procedure Pass [facility] [address] [place] [id number] Social History Tobacco Use Types Packs/Day Years [...] documented as of this encounter Care Teams Stuffing Machine Operator Relationship Specialty Start Date End Date Nessa Hillman NP [address] [place] [address] PCP - General Nurse Practitioner 06/03/24 Lupillo Sinclair MD [address] [address] Cardiology 12/24/24 documented as of this encounter Additional Source Comments The information contained in this document represents components of the legal health record. It is not the complete legal health record.[facility]
--- OUTSIDE RECORDS SUMMARY | 2025-08-26 11:45 | XMS_ITS | Encounter Summary ---
Author Organization [facility] Address [address] [place] [address] Phone Care Team Providers Care Supervisor Show Operations Name Role Phone Nessa Hillman NP Primary Care Provider +1- [phone] Lupillo Sinclair MD Unavailable [phone] Encounter Details Date Type Department Care Team (Late st Contact Info) Description 01/26/2025 Procedure Pass [facility] [place] Imaging - RF/IR [address] [facility], [address] [place] [address] Social History Tobacco Use Types Packs/Day Years [...] documented as of this encounter Care Teams Supervisor Show Operations Relationship Specialty Start Date End Date Nessa Hillman NP [address] [place] [address] PCP - General Nurse Practitioner 06/03/24 Lupillo Sinclair MD [address] [address] Cardiology 12/24/24 documented as of this encounter Additional Source Comments The information contained in this document represents components of the legal health record. It is not the complete legal health record.[facility]
--- OUTSIDE RECORDS SUMMARY | 2025-08-26 11:45 | XMS_ITS | Encounter Summary ---
Author Organization [facility] Address [address] [place] [address] Phone Care Team Providers Care Type Photography Supervisor Name Role Phone Nessa Hillman NP Primary Care Provider [phone]- [phone] Lupillo Sinclair MD Unavailable [phone] Encounter Details Date Type Department Care Team (Late st Contact Info) Description 01/31/2025 Procedure Pass [facility] [place] [place], [place] [address] [facility], 6th [place] [address] Social History Tobacco Use Types Packs/Day Years [...] documented as of this encounter Care Teams Type Photography Supervisor Relationship Specialty Start Date End Date Nessa Hillman NP [address] [place] [address] PCP - General Nurse Practitioner 06/03/24 Lupillo Sinclair MD [address] [address] Cardiology 12/24/24 documented as of this encounter Additional Source Comments The information contained in this document represents components of the legal health record. It is not the complete legal health record.[facility]
--- OUTSIDE RECORDS SUMMARY | 2025-08-26 11:45 | XMS_ITS | Encounter Summary ---
Author Organization [facility] Address [address] [place] [address] Phone Care Team Providers Care Athlete Marketing Agent Name Role Phone Nessa Hillman NP Primary Care Provider [phone]- [phone] Lupillo Sinclair MD Unavailable [phone] Encounter Details Date Type Department Care Team (Late st Contact Info) Description 01/26/2025 Procedure Pass [facility], [place] [address] [facility], 6th [place] [address] Social History Tobacco Use Types Packs/Day Years [...] documented as of this encounter Care Teams Athlete Marketing Agent Relationship Specialty Start Date End Date Nessa Hillman NP [address] [place] [address] PCP - General Nurse Practitioner 06/03/24 Lupillo Sinclair MD [address] [address] Cardiology 12/24/24 documented as of this encounter Additional Source Comments The information contained in this document represents components of the legal health record. It is not the complete legal health record.[facility]
--- OUTSIDE RECORDS SUMMARY | 2025-08-26 11:45 | XMS_ITS | Encounter Summary ---
Author Organization [facility] Address [address] [place] [address] Phone Care Team Providers Care Bottom Brusher Name Role Phone Nessa Hillman NP Primary Care Provider [phone]- [phone] Lupillo Sinclair MD Unavailable [phone] Encounter Details Date Type Department Care Team (Late st Contact Info) Description 01/31/2025 Procedure Pass [facility] [place] - [place]IR [address] [facility], 2nd [place] [address] Social History Tobacco Use Types Packs/Day Years [...] documented as of this encounter Care Teams Bottom Brusher Relationship Specialty Start Date End Date Nessa Hillman NP [address] [place] [address] PCP - General Nurse Practitioner 06/03/24 Lupillo Sinclair MD [address] [address] Cardiology 12/24/24 documented as of this encounter Additional Source Comments The information contained in this document represents components of the legal health record. It is not the complete legal health record.[facility]
--- OUTSIDE RECORDS SUMMARY | 2025-08-26 11:45 | XMS_ITS | Clinical Summary ---
Author Organization [facility] Address [address] [place] [address] Care Team Providers Care Washer Engineer Helper Name Role Phone Joi Rebollar MD Primary [...] as there aren't plans to continue benzos terminal makeup operator (per patient preference); options are limited given prolonged QTC Assessment & Plan (06/01/2025 2:22 PM EDT): - continue Valium 6mg PRN - since Remeron isn't effective for her, adjusted to scheduled Rozerem and dc'd Remeron - Home insomnia regimen: uses Soma for sleeping- which we will resume on discharge as there aren't plans to continue benzos terminal makeup operator (per patient preference); options are limited [...] O's, daily weight. She should follow-up with roller setter as outpatient, to restart Aldactone, amiodarone and [...] O's, daily weight. She should follow-up with roller setter as outpatient, to restart Aldactone, amiodarone and Farxiga Assessment & Plan (05/28/2025 11:42 AM EDT): CHADS2 score is 2 Last echocardiogram without significant change, normal right and left ventricular size and function, ejection fraction is 58% patient has been receiving IV fluids due to dehydration Will follow-up with roller setter as outpatient, to restart Aldactone, amiodarone and [...] -Continue atorvastatin 20 mg daily - outpatient roller setter will need to address: AC for afib, [...] -Continue atorvastatin 20 mg daily - outpatient roller setter will need to address: AC for afib, [...] O's, daily weight. She should follow-up with roller setter as outpatient, to restart Aldactone, amiodarone and [...] O's, daily weight. She should follow-up with roller setter as outpatient, to restart Aldactone, amiodarone and Farxiga Assessment & Plan (05/28/2025 11:42 AM EDT): CHADS2 score is 2 Last echocardiogram without significant change, normal right and left ventricular size and function, ejection fraction is 58% patient has been receiving IV fluids due to dehydration Will follow-up with roller setter as outpatient, to restart Aldactone, amiodarone and [...] -Continue atorvastatin 20 mg daily - outpatient roller setter will need to address: AC for afib, [...] -Continue atorvastatin 20 mg daily - outpatient roller setter will need to address: AC for afib, [...] with general surgery Dr. Walton on 06/10 [facility] Assessment & Plan (05/29/2025 10:12 AM [...] with general surgery Dr. Walton on 06/10 [facility] Assessment & Plan (05/28/2025 11:53 AM [...] with general surgery Dr. Walton on 06/10 [facility] Assessment & Plan (05/27/2025 8:45 AM [...] O's, daily weight. She should follow-up with roller setter as outpatient, to restart Aldactone, amiodarone and [...] O's, daily weight. She should follow-up with roller setter as outpatient, to restart Aldactone, amiodarone and Farxiga Assessment & Plan (05/28/2025 11:42 AM EDT): CHADS2 score is 2 Last echocardiogram without significant change, normal right and left ventricular size and function, ejection fraction is 58% patient has been receiving IV fluids due to dehydration Will follow-up with roller setter as outpatient, to restart Aldactone, amiodarone and [...] -Continue atorvastatin 20 mg daily - outpatient roller setter will need to address: AC for afib, [...] -Continue atorvastatin 20 mg daily - outpatient roller setter will need to address: AC for afib, [...] as there aren't plans to continue benzos terminal makeup operator (per patient preference); options are limited given prolonged QTC Assessment & Plan (06/01/2025 2:22 PM EDT): - continue Valium 6mg PRN - since Remeron isn't effective for her, adjusted to scheduled Rozerem and dc'd Remeron - Home insomnia regimen: uses Soma for sleeping- which we will resume on discharge as there aren't plans to continue benzos retirement (per patient preference); options are limited given [...] drainage. She presented on 04 07 at [facility] with concerns of draining from her fistula [...] drainage. She presented on 04 07 at [facility] with concerns of draining from her fistula [...] drainage. She presented on 04 07 at [facility] with concerns of draining from her fistula [...] drainage. She presented on 04 07 at [facility] with concerns of draining from her fistula [...] drainage. She presented on 04 07 at [facility] with concerns of draining from her fistula [...] drainage. She presented on 04 07 at [facility] with concerns of draining from her fistula [...] treated with antibiotics. \Plan Continue antibiotics Continue kiln charger plan and follow with investigations. 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 Walton on 06/10 [facility] Assessment & Plan (05/29/2025 10:12 AM [...] with general surgery Dr. Walton on 06/10 [facility] Assessment & Plan (05/28/2025 11:53 AM [...] with general surgery Dr. Walton on 06/10 [facility] Assessment & Plan (05/27/2025 8:45 AM [...] drainage. She presented on 04 07 at [facility] with concerns of draining from her fistula [...] drainage. She presented on 04 07 at [facility] with concerns of draining from her fistula [...] drainage. She presented on 04 07 at [facility] with concerns of draining from her fistula [...] drainage. She presented on 04 07 at [facility] with concerns of draining from her fistula [...] drainage. She presented on 04 07 at [facility] with concerns of draining from her fistula [...] drainage. She presented on 04 07 at [facility] with concerns of draining from her fistula [...] treated with antibiotics. \Plan Continue antibiotics Continue kiln charger plan and follow with investigations. 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 who presented to [facility] on 04/27/2025 with increased drainage from fistula [...] multiple admission and draining who presented to [facility] on 04/27/2025 with increased drainage from fistula [...] multiple admission and draining who presented to [facility] on 04/27/2025 with increased drainage from fistula [...] multiple admission and draining who presented to [facility] on 04/27/2025 with increased drainage from fistula [...] multiple admission and draining who presented to [facility] on 04/27/2025 with increased drainage from fistula [...] multiple admission and draining who presented to [facility] on 04/27/2025 with increased drainage from fistula [...] treated with antibiotics. \Plan Continue antibiotics Continue kiln charger plan and follow with investigations. 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 She should follow-up with roller setter as outpatient, to restart Aldactone, amiodarone and [...] O's, daily weight. She should follow-up with roller setter as outpatient, to restart Aldactone, amiodarone and Farxiga Assessment & Plan (05/28/2025 11:42 AM EDT): CHADS2 score is 2 Last echocardiogram without significant change, normal right and left ventricular size and function, ejection fraction is 58% patient has been receiving IV fluids due to dehydration Will follow-up with roller setter as outpatient, to restart Aldactone, amiodarone and [...] -Continue atorvastatin 20 mg daily - outpatient roller setter will need to address: AC for afib, [...] -Continue atorvastatin 20 mg daily - outpatient roller setter will need to address: AC for afib, [...] hold Jardiance to be restarted by outpatient roller setter. - Continue metoprolol 25 mg daily - Continue losartan 25 mg daily - Continue holding Jardiance and spironolactone Assessment & Plan (05/20/2025 12:03 PM EDT): Recent echo results from 05/14 reviewed by cardiology, with presumed stress cardiomyopathy. Ejection fraction improved to 58%. Recommending restarting metoprolol succinate and losartan. Advised to hold Jardiance to be restarted by outpatient roller setter. - Continue metoprolol 25 mg daily - Continue losartan 25 mg daily - Continue holding Jardiance and spironolactone Assessment & Plan (05/19/2025 6:40 AM EDT): Recent echo results from 05/14 reviewed by cardiology, with presumed stress cardiomyopathy. Ejection fraction improved to 58%. Recommending restarting metoprolol succinate and losartan. Advised to hold Jardiance to be restarted by outpatient roller setter. - Continue metoprolol 25 mg daily - Continue losartan 25 mg daily - Continue holding Jardiance and spironolactone Assessment & Plan (05/18/2025 6:47 AM EDT): Recent echo results from 05/14 reviewed by cardiology, with presumed stress cardiomyopathy. Ejection fraction improved to 58%. Recommending restarting metoprolol succinate and losartan. Advised to hold Jardiance to be restarted by outpatient roller setter. - Continue metoprolol 25 mg daily - Continue losartan 25 mg daily - Continue holding Jardiance and spironolactone Assessment & Plan (05/17/2025 2:37 PM EDT): Recent echo results from 05/14 reviewed by cardiology, with presumed stress cardiomyopathy. Ejection fraction improved to 58%. Recommending restarting metoprolol succinate and losartan. Advised to hold Jardiance to be restarted by outpatient roller setter. - Continue metoprolol 25 mg daily - Continue losartan 25 mg daily - Continue holding Jardiance and spironolactone Assessment & Plan (05/16/2025 7:39 AM EDT): Recent echo results from 05/14 reviewed by cardiology, with presumed stress cardiomyopathy. Ejection fraction improved to 58%. Recommending restarting metoprolol succinate and losartan. Advised to hold Jardiance to be restarted by outpatient roller setter. - Continue metoprolol 25 mg daily - Continue losartan 25 mg daily - Continue holding Jardiance and spironolactone Assessment & Plan (05/15/2025 2:08 PM EDT): Cardiology's recommendations were appreciated [05/14]. Recent echo results from 05/14 showed improved ejection fraction of 58%. Recommending restarting metoprolol succinate and losartan. Advised to hold Jardiance to be restarted by outpatient roller setter. Plan Recommends metoprolol Losartan 25 mg daily Continue hold on Jardiance and spironolactone Assessment & Plan (05/14/2025 4:48 PM EDT): Cardiology's recommendations were appreciated [05/14]. Recent echo results from 05/14 showed improved ejection fraction of 58%. Recommending restarting metoprolol succinate and losartan. Advised to hold Jardiance to be restarted by outpatient roller setter. 1. Discussed restarting metoprolol with attending 2. [...] AM EDT Hospital Encounter INPATIENT REHAB [address] [place] [address] Jhony Laird MD Starrett, Garrison J, DO Intra-abdominal abscess (HCC) (Primary Dx); Atrial fibrillation, unspecified type (HCC); Stress-induced cardiomyopathy; Allergic rhinitis, unspecified seasonality, unspecified trigger; Anxiety; Nutritional deficiency; Primary osteoarthritis of both knees; Colostomy complication (HCC); Primary insomnia Discharge Disposition: Home with Health Care Services from Last 3 Months Social History Tobacco Use Types Packs/Day Years Used Date Smoking Tobacco: Former Cigarettes Smokeless Tobacco: Never Tobacco Cessation:Counseling Given: No Alcohol Use Standard Drinks/Week Comments Never 0 (1 standard drink = 0.6 oz pur e alcohol) [facility] Utilities Answer Date Recorded In the past 12 months has th e [employer], gas, oil, or water [employer] threatened to shut off services in your [...] any time in the past 12 m [facility], were you homeless or living in a group home (including now)? No 05/10/2025 Comments Unknown [...] Planning 1960 Hepatitis C Virus Screening 1959 DTaP/Tdap/Td Vaccines (1 - Tdap) 1978 Pneumococcal Vaccines 50+ (1 of 2 - PCV) 1978 Mammogram 1999 Colonoscopy 02/07/2004 RSV Vaccine 50 years and older and Patients (1 - Risk 50-74 years 1-dose series) 2009 Zoster (Shingles) Vaccine (1 of 2) 2009 DXA Bone Density (Females,Ages 65 and older) 02/07/2024 Influenza Vaccine 04/04/2025 06/01/2024, , 06/28/2022, Additional history exists COVID-19 Vaccine (6 - 2025-26 season) 2025 06/30/2024, 10/01/2023, 07/10/2021, Additional history [...] METABOLIC PANEL Routine 05/27/2025 6:20 AM EDT from Last 3 Months Results * (ABNORMAL) COMPLETE BLOOD COUNT, WITHOUT DIFFERENTIAL (06/03/2025 6:08 AM EDT) Only the most recent of3 resultswithin the time period is included. [facility] White Blood Cell Count 7.7 4.0 - 11.0 Thou/uL 06/03/2025 7:11 AM EDT [facility] Platelet Count 251 150 - 450 Thou/uL 06/03/2025 7:11 AM EDT [facility] Hemoglobin 7.5(L) 11.7 - 15.7 g/dL 06/03/2025 7:11 AM T [facility] Hematocrit 23.5(L) 35.0 - 47.0 % 06/03/2025 7:11 AM T [facility] Red Blood Cell Count 2.58(L) 4.00 - 5.40 Mil/uL 06/03/2025 7:11 AM EDT [facility] MCV 91 80 - 100 fL 06/03/2025 7:11 AM EDT [facility] MCH 29.1 27.0 - 31.0 pg 06/03/2025 7:11 AM EDT [facility] MCHC 31.9 30.0 - 36.0 g/dL 06/03/2025 7:11 AM EDT [facility] RDW 18.2(H) 11.5 - 14.5 % 06/03/2025 7:11 AM EDT [facility] MPV 9.5 7.5 - 12.5 fL 06/03/2025 7:11 AM EDT [facility] Blood Blood specimen / Unknown 06/03/2025 6:08 AM EDT 06/03/2025 6:51 AM EDT Anika MORIN-Nikki LAB BLOOD ORDERABLES Final Re sult Performing Organization Address City/[facility] [place] [address], [place] [address] * (ABNORMAL) Magnesium (AM) (06/03/2025 6:08 AM EDT) Only the most recent of6 resultswithin the time period is included. Magnesium 1.5(L) 1.6 - 2.7 mg/dL 06/03/2025 7:34 AM EDT [facility] Blood Blood specimen / Unknown 06/03/2025 6:08 AM EDT 06/03/2025 6:51 AM EDT Anika MORIN-Nikki LAB BLOOD ORDERABLES Final Re sult Performing Organization Address City/[facility] [place] [place] [address], [place] [address] * (ABNORMAL) Lipase (06/03/2025 6:08 AM EDT) Only the most recent of2 resultswithin the time period is included. Lipase 256(H) 13 - 60 U/L 06/03/2025 7:34 AM [facility] Blood Blood specimen / Unknown 06/03/2025 6:08 AM EDT 06/03/2025 6:51 AM EDT us Anika Lau PA-C LAB BLOOD ORDERABLES Final Re sult [address] [address], [address] [address] * (ABNORMAL) Comprehensive Metabolic Panel (06/03/2025 6:08 AM EDT) Only the most recent of3 resultswithin the time period is included. Glucose 92 65 - 99 mg/dL 06/03/2025 7:34 AM [facility] Comment:Fasting: <100 mg/dL, Non-Fasting: <200 mg/dL (ADA 2005) Blood Urea Nitrogen (BUN) 9 8 - 21 mg/dL 06/03/2025 7:34 AM [facility] Creatinine 0.52 0.40 - 1.10 mg/dL 06/03/2025 7:34 AM [facility] eGFR >90 >59 06/03/2025 7:34 AM [facility] Comment:CKD-EPI (2020) in mL /min/1.73 sq meters. Sodium 135(L) 136 - 145 mmol/L 06/03/2025 7:34 AM [facility] Potassium 3.9 3.4 - 5.3 mmol/L 06/03/2025 7:34 AM [facility] Chloride 104 98 - 107 mmol/L 06/03/2025 7:34 AM [facility] CO2 24 22 - 33 mmol/L 06/03/2025 7:34 AM [facility] Calcium 8.0(L) 8.7 - 10.5 mg/dL 06/03/2025 7:34 AM [facility] Alkaline Phosphatase 119 32 - 122 U/L 06/03/2025 7:34 AM [facility] Aspartate Aminotrans (AST) 21 10 - 50 U/L 06/03/2025 7:34 AM EDT [facility] Alanine Aminotrans (ALT) 11 10 - 50 U/L 06/03/2025 7:34 AM EDT [facility] Bilirubin, Total 0.3 0.2 - 1.0 mg/dL 06/03/2025 7:34 AM EDT [facility] Protein, Total 5.2(L) 6.3 - 8.3 g/dL 06/03/2025 7:34 AM EDT [facility] Albumin 2.5(L) 3.4 - 4.8 g/dL 06/03/2025 7:34 AM EDT [facility] BUN/Creatinine Ratio 17 10.0 - 25.0 Ratio 06/03/2025 7:34 AM EDT [facility] Globulin 2.7 1.5 - 3.9 g/dL 06/03/2025 7:34 AM [facility] Albumin/Globulin Ratio 0.9(L) 1.0 - 3.0 Ratio 06/03/2025 7:34 AM EDT [facility] Anion Gap 7 7 - 17 06/03/2025 7:34 AM T [facility] Blood Blood specimen / Unknown 06/03/2025 6:08 AM EDT 06/03/2025 6:51 AM EDT us Anika Lau PA-C LAB BLOOD ORDERABLES Final Re sult [address] [address], [address] [address] * ECG 12 lead (06/02/2025 10:24 AM EDT) Only the most recent of4 resultswithin the time period is included. Ventricular rate 81 BPM EKG [facility] Atrial rate 81 BPM EKG [facility] P-R interval 170 ms EKG [facility] QRS duration 66 ms EKG [facility] Q-T interval 406 ms EKG [facility] QTC calculation (Bazett) 472 ms EKG [facility] P axis 51 degrees EKG [facility] R axis 16 degrees EKG [facility] T axis 41 degrees EKG [facility] 06/02/2025 10:2 4 AM EDT Narrative EKG [facility] - 06/02/2025 10:30 AM EDT Normal sinus rhythm Nonspecific T wave abnormality Abnormal ECG Confirmed by MD Pace John ([id number]) on 06/02/2025 10:30:22 AM Procedure Note Alvaro Pace MD - 06/02/2025 Normal sinus rhythm Nonspecific T wave abnormality Abnormal ECG Confirmed by MD Pace John ([id number]) on 06/02/2025 10:30:22 AM us Jhony Laird MD ECG ORDERABLES Final Resu lt [facility] * Lactic Acid, Plasma (STAT) (06/02/2025 7:45 AM EDT) Lactic Acid 0.8 0.5 - 1.9 mmol/L 06/02/2025 8:33 AM EDT [facility] Blood Blood specimen / Unknown 06/02/2025 7:45 AM EDT 06/02/2025 8:03 AM EDT us Anika Lau PA-C LAB BLOOD ORDERABLES Final Re sult [address] [address], [address] [address] * (ABNORMAL) Complete Blood Count, with Differential (06/02/2025 5:18 AM EDT) White Blood Cell Count 10.6 4.0 - 11.0 Thou/uL 06/02/2025 5:59 AM EDT [facility] Platelet Count 269 150 - 450 Thou/uL 06/02/2025 5:59 AM EDT [facility] Hemoglobin 7.9(L) 11.7 - 15.7 g/dL 06/02/2025 5:59 AM EDT [facility] Hematocrit 25.0(L) 35.0 - 47.0 % 06/02/2025 5:[facility] Red Blood Cell Count 2.79(L) 4.00 - 5.40 Mil/uL 06/02/2025 5:59 AM EDT [facility] MCV 90 80 - 100 fL 06/02/2025 5:59 AM EDT [facility] MCH 28.3 27.0 - 31.0 pg 06/02/2025 5:59 [facility] MCHC 31.6 30.0 - 36.0 g/dL 06/02/2025 5:59 AM [facility] RDW 18.0(H) 11.5 - 14.5 % 06/02/2025 5:59 [facility] MPV 9.3 7.5 - 12.5 fL 06/02/2025 5:59 [facility] Neutrophils Auto 75.6 % 06/02/20 5:59 [facility] Immature Granulocytes 0.7 % 06/02/2025 5:59 [facility] Lymphocytes Auto 11.7 % 06/02/20 5:59 [facility] Monocytes Auto 9.8 % 06/02/2025 5:59 [facility] Eosinophils Auto 1.6 % 06/02/20 5:59 [facility] Basophils Auto 0.6 % 06/02/2025 5:59 [facility] Abs Neutrophils Auto 7.99(H) 2.00 - 7.50 Thou/uL 06/02/2025 5:59 [facility] Abs Immature Granulocytes 0.07 0.00 - 0.10 Thou/uL 06/02/2025 5:59 [facility] Abs Lymphocytes Auto 1.24(L) 1.50 - 4.50 Thou/uL 06/02/2025 5:59 AM EDT [facility] Abs Monocytes Auto 1.04 0.20 - 1.50 Thou/uL 06/02/2025 5:59 [facility] Abs Eosinophils Auto 0.17 0.00 - 0.70 Thou/uL 06/02/2025 5:59 AM EDT [facility] Abs Basophils Auto 0.06 0.00 - 0.20 Thou/uL 06/02/2025 5:59 AM EDT [facility] Blood Blood specimen / Unknown 06/02/2025 5:18 AM EDT 06/02/2025 5:49 AM EDT Jhony Laird MD LAB BLOOD ORDERABLES Final Result [address] [address], [address] [address] * CT Abdomen+pelvis w/contrast (06/01/2025 2:25 PM EDT) Anatomical Region Laterality Modality Abdomen, Pelvis Computed [...] similar to prior. Fleischner guidelines were followed. us Anika Lau PA-C IMG CT ORDERABLES Final Resul t * (ABNORMAL) Basic Metabolic Panel (06/01/2025 5:30 AM EDT) Only the most recent of3 resultswithin the time period is included. Glucose 100(H) 65 - 99 mg/dL 06/01/2025 6:03 AM [facility] Comment:Fasting: <100 mg/dL, Non-Fasting: <200 mg/dL (ADA 2004) Blood Urea Nitrogen (BUN) 31(H) 8 - 21 mg/dL 06/01/2025 6:03 AM [facility] Creatinine 1.26(H) 0.40 - 1.10 mg/dL 06/01/2025 6:03 AM [facility] eGFR 47(L) >59 06/01/2025 6:03 AM [facility] Comment:CKD-EPI (2020) in mL /min/1.73 sq meters. Sodium 133(L) 136 - 145 mmol/L 06/01/2025 6:03 AM [facility] Potassium 4.5 3.4 - 5.3 mmol/L 06/01/2025 6:03 AM [facility] Chloride 103 98 - 107 mmol/L 06/01/2025 6:03 AM [facility] CO2 20(L) 22 - 33 mmol/L 06/01/2025 6:03 AM [facility] Anion Gap 10 7 - 17 06/01/2025 6:03 AM [facility] Calcium 8.7 8.7 - 10.5 mg/dL 06/01/2025 6:03 AM [facility] BUN/Creatinine Ratio 25 10.0 - 25.0 Ratio 06/01/2025 6:03 AM [facility] Blood Blood specimen / Unknown 06/01/2025 5:30 AM EDT 06/01/2025 5:35 AM EDT us Anika Lau PA-C LAB BLOOD ORDERABLES Final Re sult [address] [address], [facility] [address] [place] [address] * XR Knee 3 views-Bilateral (05/28/2025 4:06 [...] * Phosphorus (AM) (05/27/2025 6:20 AM EDT) Phosphorus 2.8 2.7 - 4.5 mg/dL 05/27/2025 7:24 AM EDT [facility] Blood Blood specimen / Unknown 05/27/2025 6:20 AM EDT 05/27/2025 6:49 AM EDT Jessica Earl PA-C LAB BLOOD ORDERABLES Final Result [address] [address], [address] [address] from Last 3 Months Insurance [employer] MEDICARE Advance Directives * Full Code (Latest Code Status on File) Date Activated Date Inactivated Comments 05/21/2025 11:21 AM * Full Code Date Activated Date Inactivated Comments 05/08/2025 10:02 PM 05/21/2025 11:21 AM Healthcare Agents on File Name Relationship Healthcare Agent Relationshi p Communication Alekecia Jonesy Adult child 1. Health Care Represe ntative Care Teams Washer Engineer Helper Relationship Specialty Start Date End Date Joi Rebollar MD [address] [place] [address] PCP - General Internal Medicine 05/08/25
--- OUTSIDE RECORDS SUMMARY | 2025-08-26 11:46 | XMS_ITS | Encounter Summary ---
Author Organization [facility] Address [address] [place] [address] Phone Care Team Providers Care Gunsmith Apprentice Name Role Phone Nessa Hillman NP Primary Care Provider [phone] Lupillo Sincliar MD Unavailable [phone] Encounter Details Date Type Department Care Team (Late st Contact Info) Description 08/15/2024 Procedure Pass [facility] [address] [place] [address] Social History Tobacco Use Types [...] documented as of this encounter Care Teams Gunsmith Apprentice Relationship Specialty Start Date End Date Nessa Hillman NP [address] [place] [address] PCP - General Nurse Practitioner 06/03/24 Lupillo Sinclair MD [address] [address] Cardiology 12/24/24 documented as of this encounter Additional Source Comments The information contained in this document represents components of the legal health record. It is not the complete legal health record.[facility]
--- OUTSIDE RECORDS SUMMARY | 2025-08-26 11:46 | XMS_ITS | Data Portability ---
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 [...] Organization Details Recorded Time Osteoarthritis of knee 689058187 Active 2023 Abdirahman Kimbrough PA-C [address], [place], [address], [facility] 4 07:06:53 Unintentional weight loss 515017759 Active 2024 Abdirahman Kimbrough PA-C [address], [place], [address], [facility] 5 05:18:25 Problem Notes None recorded. Procedures Surgical History Date Name Laterality Status Provider Name and Address Organization Details Recorded Time 5 Knee Kenalog 40 1cc Injection, Bilateral completed Abdirahman Kimbrough PA-C [address], [place], [address], [facility] 08/13/2025 06:36:25 02/17/202 5 Knee Kenalog 40 1cc Injection, Bilateral completed Abdirahman Kimbrough PA-C [address], [place], [address], [facility] 10/21/2024 08:15:18 4 Knee Kenalog 40 1cc Injection, Bilateral completed Abdirahman Kimbrough PA-C [address], [place], [address], [facility] 07/22/2024 07:59:12 4 Knee Kenalog 40 1cc Injection, Bilateral completed Abdirahman Kimbrough PA-C [address], [place], [address], [facility] 04/23/2024 05:33:06 4 Knee Kenalog 40 1cc Injection, Bilateral completed Abdirahman Kimbrough PA-C [address], [place], [address], [facility] 01/15/2024 07:07:11 Imaging Results None recorded. Procedure Notes None recorded. Medical Equipment None Reported. Allergies Allergen ID Allergen Name Allergen Category Reaction Reaction Severity Criticality Documentation Date Start Date Code Code System Note Provider Name and Address Organization Details Recorded Time 195997 ibuprofen medicatio n Not available Not available Not available 08/13/2025 5640 RxNorm Not Available [employer] - prod 5 03:40:05 035815 erythromy florentin medicatio n Not available Not available Not available 08/13/2025 4053 RxNorm Not Available [employer] - prod 5 03:40:05 948251 sulfameth oxazole medicatio n Not available Not available Not available 08/13/2025 20100 RxNorm unrec ogniz ed react ion (text : Anaph ylact ic shock , due to adver se effec t of corre ct medic inal subst ance prope rly admin ister ed (diso rder) , code: [id number]) (from exter nal sourc e) Not Available [employer] - prod 5 03:40:05 776008 aspirin medicatio n Not available Not available Not available 08/13/2025 1191 RxNorm Not Available [employer] - [employer] - prod 5 03:40:05 798165 melatonin medicatio n Not available Not available Not available 08/13/2025 6711 RxNorm nause a & shaki ness Not Available [employer] - [employer] - prod 5 03:40:05 367201 Iodinated contrast media (substanc e) medicatio n Not available Not available Not available 08/13/2025 86076 2004 SNOMED Not Available [employer] - [employer] - prod 5 03:40:05 201284 amoxicill in / clavulana te medicatio n Not available Not available Not available 08/13/2025 03418 RxNorm per patie nt, [place] with Amoxi cilli n and Penic illin , NOT Augme ntin. Not Available [employer] - [employer] - prod 5 03:40:05 323772 salicylic acid / sulfur medicatio n Not available Not available Not available 08/13/2025 49803 3 RxNorm Not Available [employer] - [employer] - prod 5 03:40:05 852649 trazodone medicatio n Not available Not available Not available 08/13/2025 74890 RxNorm QT prolo ngati on Not Available [employer] - [employer] - prod 5 03:40:05 860915 azithromy florentin medicatio n Not available Not available Not available 08/13/20252016 70479 RxNorm Other react ion(s ): swell ing, hard to breat h Not Available [employer] - [employer] - prod 5 03:40:40 574775 codeine medicatio n Not available Not available Not available 08/13/20252016 2670 RxNorm Other react ion(s ): stoma ch pain Not Available [employer] - [employer] - prod 5 03:40:40 806508 Shellfish (substanc e) food,medi cation Not available Not available Not available 08/13/20252019 85181 9006 SNOMED unrec ogniz ed react ion (text : Unkno wn, code: [id number]) (from exter nal sourc e) Not Available [employer] - External [employer] - prod 5 03:40:40 54488 Non-stero idal anti-infl ammatory agent (substanc e) medicatio n Not available Not available Not available 11/06/20232022 63918 5008 SNOMED Not Available [facility] 4 13:16:37 62086 Augmentin medicatio n Not available Not available Not available 11/06/20232015 91521 2 RxNorm Not Available [facility] 4 13:16:37 14038 erythromy florentin medicatio n Not available Not available Not available 11/06/20232020 4053 RxNorm Not Available [facility] 4 13:16:37 65730 aspirin medicatio n Not available Not available Not available 11/06/20232015 1191 RxNorm Not Available [facility] 4 13:16:38 73223 Substance with sulfonami de structure and antibacte rial mechanism of action (substanc e) medicatio n Not available Not available Not available 11/06/20232015 09329 8003 SNOMED Not Available [facility] 4 13:16:38 Medications Name Authored On Sig Start Date Stop Date Status Note Indication Fill Status Repeat Number Dispense Quantity LastModified by Organization Details LastModified Time amlod ipine 5 mg table t 4 10:45:41 TAKE 1 TABL ET BY MOUT H EVER Y DAY active Not Available Not availab le 0 Not Available Not Available [facility] 01/15/2024 10:45:41 atorv astat in 80 mg table t 4 10:45:41 TAKE 1 TABL ET BY MOUT H EVER Y DAY active Not Available Not availab le 0 Not Available Not Available [facility] 01/15/2024 10:45:41 justa us sulfa te 325 mg (65 mg iron) table t 4 10:45:41 TAKE 1 TAB ORAL LY KIRILL Y AT [facility] active Not Available Not availab le 0 Not Available Not Available [facility] 01/15/2024 10:45:41 fluti jorge e propi krista 50 mcg/a ctuat ion nasal spray ,susp ensio n 4 10:45:41 SPRA Y 1 SPRA Y INTO EACH NOST RIL EVER Y DAY active Not Available Not availab le 0 Not Available Not Available [facility] 01/15/2024 10:45:41 Gavil ax 17 gram/ dose oral powde r 4 10:45:41 DRIN K 238 GRAM S BY MOUT H ONCE DIRE CTED BY JOHNNY BANGURA DEPA RTME NT AT [facility] active Not Available Not availab le 0 Not Available Not Available [facility] 01/15/2024 10:45:41 Laxat suresh (bisa codyl ) 5 mg table t,del ayed relea se 4 10:45:41 TAKE 2 TABL ETS BY MOUT H AT [facility] active Not Available Not availab le 0 Not Available Not Available [facility] 01/15/2024 10:45:41 loraz epam 0.5 mg table t 4 10:45:41 TAKE 1 TABL ET BY MOUT H EVER Y 8 HOUR S NEED ED FOR ANXI ETY active Not Available Not availab le 0 Not Available Not Available [facility] 01/15/2024 10:45:41 loraz epam 1 mg table t 4 10:45:41 TAKE 1 TABL ET BY MOUT H EVER Y DAY NEED ED FOR ANXI ETY FOR 30 DAYS active Not Available Not availab le 0 Not Available Not Available [facility] 01/15/2024 10:45:41 metop rolol succi ainsley ER 100 mg table t,ext ended relea se 24 hr 4 10:45:41 TAKE 1 AND 1/2 TABL ETS BY MOUT H KIRILL Y active Not Available Not availab le 0 Not Available Not Available [facility] 01/15/2024 10:45:41 santos zapin e 7.5 mg table t 4 10:45:41 TAKE 1 TABL ET BY MOUT H NIGH TLY AT [facility]. active Not Available Not availab le 0 Not Available Not Available [facility] 01/15/2024 10:45:41 nysta tin 100,0 00 unit/ gram topic al powde r 4 10:45:41 APPL Y TOPI CALL Y TO AFFE CTED AREA TWO TIME S A DAY active Not Available Not availab le 0 Not Available Not Available [facility] 01/15/2024 10:45:41 potas sium chlor john ER 20 mEq table t,ext ended relea se 4 10:45:41 TAKE 1 TABL ET BY MOUT H EVER Y DAY active Not Available Not availab le 0 Not Available Not Available [facility] 01/15/2024 10:45:41 potas sium chlor john ER 10 mEq capsu le,ex tende d relea se 4 06:15:27 TAKE ONE CAPS ULE BY MOUT H TWIC E A DAY active Not Available Not availab le 0 Not Available Not Available [facility] 04/23/2024 06:15:27 carve dilol 3.125 mg table t 5 05:51:44 TAKE ONE TABL ET BY MOUT H TWIC E A DAY FOR HYPE RTEN ARACELI . active Not Available Not availab le 0 Not Available Not Available [facility] 10/21/2024 05:51:44 GaviL yte-G 236 gram- 22.74 [...] 14:02:58 Eliqu is 5 mg table t 5 14:02:58 TAKE ONE TABL ET BY MOUT H TWIC E A DAY active Not Available Not availab le 0 Not Available Not Available [facility] - [employer] [facility] - prod 08/10/2025 14:02:58 magne sium oxide 400 mg (241. 3 mg magne sium) table t 5 14:02:58 TAKE TWO TABL ETS BY MOUT [...] mcg (500 unit) table t,ext end. rel 5 14:02:59 TAKE ONE TABL ET BY MOUT H EVER Y DAY active Not Available Not availab le 0 Not Available Not Available [facility] - [employer] [facility] - prod 08/10/2025 14:02:59 diclo fenac 1 % topic al gel 5 14:02:59 APPL Y 2 GRAM S TOPI [...] TABL ET BY MOUT H EVER Y NEED ED FOR NAUS EA AND VOMI [...] Kimbrough PA-C [address], [place], [address], [facility] 08/13/2025 13:41:10 caris oprod ol 350 mg table t 5 14:02:58 TAKE ONE TABL ET BY MOUT H KIRILL Y AT [facility] FOR MUSC LE PAIN 08/13 aborted Not Available Not availab le 0 Not Available Abdirahman Kimbrough PA-C [address], [place], [address], [facility] 08/13/2025 13:41:18 carve dilol 6.25 mg table t 5 05:51:44 TAKE ONE TABL ET BY MOUT H TWIC E A DAY. MUST ADMI NIST ER WITH A MEAL 08/13 aborted Not Available Not availab le 0 Not Available Abdirahman Kimbrough PA-C [address], [place], [address], [facility] 08/13/2025 13:41:28 cipro floxa florentin 500 mg table t 4 10:45:41 TAKE 1 TABL ET BY MOUT H EVER Y 12 HOUR S FOR 7 DAYS 08/13 aborted Not Available Not availab le 0 Not Available Abdirahman Kimbrough PA-C [address], [place], [address], [facility] 08/13/2025 13:41:31 cloni dine HCl 0.1 mg table t 4 10:45:41 TAKE 1 TABL ET BY MOUT H EVER AT [facility] GRZEG[facility]Z 08/13 aborted Not Available Not availab le 0 Not Available Abdirahman Kimbrough PA-C [address], [place], [address], [facility] 08/13/2025 13:41:41 colch icine 0.6 mg table t 5 14:03:00 TAKE ONE TABL ET BY MOUT H EVER Y DAY 08/13 aborted Not Available Not availab le 0 Not Available Abdirahman Kimbrough PA-C [address], [place], [address], [facility] 08/13/2025 13:41:53 diaze ariadne 2 mg table t 5 14:02:58 TAKE 1/2 TABL ET 1 MG.) BY MOUT H AT [facility] GR[facility] NEED ED FOR DIFF ICUL TY SLEE PING /ANX IETY . 08/13 aborted Not Available Not availab le 0 Not Available Abdirahman Kimbrough PA-C [address], [place], [address], [facility] 08/13/2025 13:42:00 gabap entin 100 mg capsu le 5 14:03:00 TAKE ONE CAPS ULE BY MOUT H EVER Y 8 HOUR S FOR 7 DAYS 08/13 aborted Not Available Not availab le 0 Not Available Abdirahman Kimbrough PA-C [address], [place], [address], [facility] 08/13/2025 13:42:15 hydro chlor othia zide 25 mg table t 4 06:15:27 TAKE 1 TABL ET (25 MG TOTA L) BY ADAN Linn. 08/13 aborted Not Available Not availab le 0 Not Available Abdirahman Kimbrough PA-C [address], [place], [address], [facility] 08/13/2025 13:42:28 hydro codon e 5 mg-ac etami nophe n 325 mg table t 4 10:45:41 TAKE 1 TABL ET BY ADAN Linn 4 HOUR S NEED ED FOR PAIN 08/13 aborted Not Available Not availab le 0 Not Available Abdirahman Kimbrough PA-C [address], [place], [address], [facility] 08/13/2025 13:42:34 hydro morph one 2 mg table t 5 14:02:59 TAKE ONE TABL ET BY ADAN Linn NEED ED FOR PAIN . 08/13 aborted Not Available Not availab le 0 Not Available Abdirahman Kimbrough PA-C [address], [place], [address], [facility] 08/13/2025 13:42:38 hydro morph one 4 mg table t 5 14:03:00 TAKE ONE TABL ET BY MOUT Perlita CURTIS Y 4 HOUR S NEED ED FOR PAIN 08/13 aborted Not Available Not availab le 0 Not Available Abdirahman Kimbrough PA-C [address], [place], [address], [facility] 08/13/2025 13:42:41 lidoc errol 5 % topic al patch 4 10:45:41 APPL Y 2 PATC HES DIOR SDER MAL EVER Y MORN ING. OFF FOR 12 HOUR S 08/13 aborted Not Available Not availab le 0 Not Available Abdirahman Kimbrough PA-C [address], [place], [address], [facility] 08/13/2025 13:42:48 lisin opril 30 mg table t 10:45:41 TAKE 1 TABL ET BY ADAN CURTIS Y DAY 08/13 aborted Not Available Not availab le 0 Not Available Abdirahman Kimbrough PA-C [address], [place], [address], [facility] 08/13/2025 13:42:52 losar briggs 25 mg table t 4 10:45:41 TAKE 1 TABL ET BY ADAN CURTIS Y DAY 08/13 aborted Not Available Not availab le 0 Not Available Abdirahman Kimbrough PA-C [address], [place], [address], [facility] 08/13/2025 13:42:56 metro nidaz ole 375 mg capsu le 4 10:45:41 TAKE 2 TABS AT 2 PM, 2 TABS AT 3PM AND 2 TABS AT 11PM THE DAY BEFO RE SURG RAO 08/13 aborted Not Available Not availab le 0 Not Available Abdirahman Kimbrough PA-C [address], [place], [address], [facility] 08/13/2025 13:43:16 panto prazo le 40 mg table t,del ayed relea se 5 14:02:59 TAKE ONE TABL ET BY ADAN Linn. 08/13 aborted Not Available Not availab le 0 Not Available Abdirahman Kimbrough PA-C [address], [place], [address], [facility] 08/13/2025 13:43:41 Potas sium Chlor john ER 4 09:05:41 Pota ssiu m Chlo ride ER 10ME Q Caps ule Exte nded Rele ase 08/13 aborted Statu s: 'Curr ent'; Not Available Not availab le 0 Not Available Abdirahman Kimbrough PA-C [address], [place], [address], [facility] 08/13/2025 13:43:45 predn [...] Kimbrough PA-C [address], [place], [address], [facility] 08/13/2025 13:43:51 grace mack 8 mg table t 5 14:02:59 TAKE 1 TABL ET BY ADAN LRY NEED ED FOR SLEE P. 08/13 aborted Not Available Not availab le 0 Not Available Abdirahman Kimbrough PA-C [address], [place], [address], [facility] 08/13/2025 13:43:55 sodiu m bicar bonat e 650 mg table t 5 05:51:44 DISS OLVE AND TAKE ONE TABL ET BY ADAN Linn NEED ED FOR STOM ACH UPSE T. 08/13 aborted Not Available Not availab le 0 Not Available Abdirahman Kimbrough PA-C [address], [place], [address], [facility] 08/13/2025 13:43:58 juno nolac tone 25 mg table t 4 06:15:27 08/13 aborted Not Available Not availab le 0 Not Available Abdirahman Kimbrough PA-C [address], [place], [address], [facility] 08/13/2025 13:44:03 trazo done 100 mg table t 4 10:45:41 TAKE 2 TABL ETS BY ADAN Linn AT [facility], X30 DAYS 08/13 aborted Not Available Not availab le 0 Not Available Abdirahman Kimbrough PA-C [address], [place], [address], [facility] 08/13/2025 13:44:06 zolpi dem 5 mg table t 5 14:02:58 TAKE ONE TABL ET BY ADAN Linn AT [facility] NEED ED FOR INSO MNIA 08/13 aborted Not Available Not availab le 0 Not Available Abdirahman Kimbrough PA-C [address], [place], [address], [facility] 08/13/2025 13:44:14 Vitals Date Recorded Body height Body mass index (BMI) Body weight Provider Name and Address Organization Details Last Updated DateTime 10/21/2024 157.48 cm 32 kg/m2 46156.66 g Abdirahman Kimbrough PA-C [address], [place], [address], [facility] 10/21/2024 13:49:42 Date Recorded Body height Body mass index (BMI) Body weight Provider Name and Address Organization Details Last Updated DateTime 01/15/2024 157.48 cm 32 kg/m2 79573.66 g Abdirahman Kimbrough PA-C [address], [place], [address], [facility] 01/15/2024 11:05:53 Date Recorded Body height Body mass index (BMI) Body weight Provider Name and Address Organization Details Last Updated DateTime 04/23/2024 157.48 cm 32 kg/m2 43121.66 g Abdirahman Kimbrough PA-C [address], [place], [address], [facility] 04/23/2024 11:16:23 Date Recorded Body height Body mass index (BMI) Body weight Provider Name and Address Organization Details Last Updated DateTime 07/22/2024 157.48 cm 32 kg/m2 48089.66 g Abdirahman Kimbrough PA-C [address] [facility], [place], [address], [facility] 07/22/2024 12:49:40 Date Recorded Body height Body mass index (BMI) Body weight Provider Name and Address Organization Details Last Updated DateTime 08/13/2025 157.48 cm 32 kg/m2 18891.66 g Abdirahman Kimbrough PA-C [address] [facility], [place], [address], [facility] 08/13/2025 13:44:47 Social History Question Answer Notes LastModified by Right Relevance Details LastModified Time Tobacco Smoking Status Never Smoker Abdirahman Kimbrough PA-C [address] [facility], [place], [address], [facility] 08/13/2025 13:45:14 What Is Your Level Of Alcohol Consumption? None Abdirahman Kimbrough PA-C [address] [facility], [place], [address], [facility] 08/13/2025 13:45:14 Which illicit or recreational drugs have you used? marijuana Abdirahman Kimbrough PA-C [address] [facility], [place], [address], [facility] 08/13/2025 13:45:14 What is your relationship status? Abdirahman Kimbrough PA-C [address], [place], [address], [facility] 08/13/2025 13:45:15 Social History Observation Description Date Observed Sex Unknown 08/13/2025 Legal Sex Female Status Not (finding) 08/26/20 25 No social history survey screeners recorded No social history SDOH screeners recorded Functional Status Question Answer Note LastModified by Right Relevance Details LastModified Time What is your level of alcohol consumption? None Abdirahman Kimbrough PA-C [address], [place], [address], [facility] 08/13/2025 13:45:14 Do you use any illicit or recreational drugs? Yes Abdirahman Kimbrough PA-C [address], [place], [address], [facility] 08/13/2025 13:45:14 No Functional Screening assessment recorded No Functional SDOH screeners recorded Mental Status None recorded. No Mental Screening assessment recorded No Mental SDOH screeners recorded Family History Nothing Reported. Medical History Condition Response Gastrointestinal Disease Y Kidney/Bladder Problems Y Heart Attack (VT) Y Seizures/Epilepsy N Gynecological HistoryNo gynecological history recorded. Obstetrics History GPAL:G 0 P 0 0 0 0 Past Encounters Encounter ID Performer Location Encounter Start Date Encounter Closed Date Diagnosis/Indication Diagnosis SNOMED-CT Code Diagnosis ICD10 Code Diagnosis IMO Codes Diagnosis Note [id number] Abdirahman Kimbrough PA-C [address] [place] [address] 01/15/2024 10:44:22 01/25/2024 13:44:56 Osteoarthritis of knee 202362201 M17.9 [id number] Abdirahman Kimbrough PA-C [address] [place] [address] 04/23/2024 10:57:15 05/10/2024 08:44:54 Osteoarthritis of knee 376394771 M17.9 [id number] Abdirahman Kimbrough PA-C [address] [place] [address] 07/22/2024 12:38:38 08/08/2024 15:29:32 Osteoarthritis of knee 200086628 M17.9 [id number] Abdirahman Kimbrough PA-C [facility] [address] [place] [address] 10/21/2024 13:25:27 11/06/2024 11:52:24 Osteoarthritis of knee 085340421 M17.9 [id number] Abdirahman Kimbrough PA-C [facility] [address] [place] [address] 08/13/2025 12:47:12 08/22/2025 07:55:50 Osteoarthritis of knee 772814716 M17.9 Unintentio nal weight loss 815223668 R63.4 352222 Health Concerns Section Related Observation LastModified by Organization Detjunaid ls LastModified Time None Recorded Concern Status LastModified by Organization Details LastModified Time None Recorded SDOH Concern Status LastModified by Organization Detai ls LastModified Time None Recorded Advance Directives Directive None Recorded Payers Insurance Date Sequence Insurance Name Policy Number Policy Mendoza Covered Member ID Mendoza Member ID Guarantor Name 04/23/2024 1 [email or web address] [id number] Kia Worrell Lenin [id number] Kia Lenin 08/22/2025 1 [employer] (MEDICARE REPLACEMENT /ADVANTAGE - PPO) [id number] Kia Worrell Lenin [id number] Kia Lenin Notes Date Note Type Note [...] and oriented x3. Normal insight, affect, and grooming.SALES PLANNING COORDINATOR: Gross motor coordination is intact. No spasticity or clonus noted.Extremities: Calves are soft and nontender. Skin on lower extremities is intact. Palpable pedal pulses bilaterally. Orthopedic Exam:Bilateral knees Restricted range of motion good anterior-posterior stability no laxity valgus or varus stressing. Exquisite medial joint line tenderness with patellofemoral crepitance noted, 1+ effusion, 4/5 strength. X-rays report: 4 views ordered and independently reviewed at [facility] of the taken previously show advanced medial [...] attending cardiac rehabilitation. Abdirahman Kimbrough PA-C [address] [facility] [address], [place], [address], [facility] 01/15/2024 11:25:26 04/23/2024 text/html I am seeing [...] and oriented x3. Normal insight, affect, and grooming.SALES PLANNING COORDINATOR: Gross motor coordination is intact. No spasticity or clonus noted.Extremities: Calves are soft and nontender. Skin on lower extremities is intact. Palpable pedal pulses bilaterally. Orthopedic Exam:Bilateral knees Restricted range of motion good anterior-posterior stability no laxity valgus or varus stressing. Exquisite medial joint line tenderness with patellofemoral crepitance noted, 1+ effusion, 4/5 strength. X-rays report: 4 views ordered and independently reviewed at [facility] of the taken previously show advanced medial [...] attending cardiac rehabilitation. Abdirahman Kimbrough PA-C [address], [place], [address], [place] [facility] 04/23/2024 11:34:22 07/22/2024 text/html I am seeing [...] is scheduled to see a specialist at [facility] going to require her to have probably another operation for her colostomy and therefore likely going to delay her knee arthroplasty until sometime in the late spring. PMH/PSH/MEDS/ALL/FMH /SOC HX/ ROS: All reviewed in detail per my medical intake sheetGeneral Exam: Vitals signs as noted below, antalgic gait noted.Mental Status: Alert and oriented x3. Normal insight, affect, and grooming.SALES PLANNING COORDINATOR: Gross motor coordination is intact. No spasticity or clonus noted.Extremities: Calves are soft and nontender. Skin on lower extremities is intact. Palpable pedal pulses bilaterally.Orthoped ic Exam:Bilateral knees Restricted range of motion good anterior-posterior stability no laxity valgus or varus stressing. Exquisite medial joint line tenderness with patellofemoral crepitance noted, 1+ effusion, 4/5 strength. X-rays report: 4 views ordered and independently reviewed at [facility] of the taken previously show advanced [...] attending cardiac rehabilitation. Abdirahman Kimbrough PA-C [address] [facility] [address], [place], [address], [place] [facility] 07/22/2024 13:07:57 10/21/2024 text/html I am seeing [...] is scheduled to see a specialist at [facility] in going to require her to have [...] 4 views ordered and independently reviewed at [facility] of the taken previously show advanced [...] attending cardiac rehabilitation. Abdirahman Kimbrough PA-C [address], [place], [address], [facility] 10/21/2024 14:54:05 08/13/2025 text/html I am seeing the patient [...] 4 views ordered and independently reviewed at [facility] of the taken previously show advanced medial [...] attending cardiac rehabilitation. Abdirahman Kimbrough PA-C [address], [place], [address], [facility] 08/14/2025 05:18:51 Care Team Name Role Member ID Specialty Address Phone JOI GARAY MD Primary Care Provider [id number] [facility] [place] OBGyn Episode No OBEpisode recorded.
--- OUTSIDE RECORDS SUMMARY | 2025-08-26 11:46 | XMS_ITS | Encounter Summary ---
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 Name Role Phone Deion Asencio MD Primary Care Provider + Nessa Hillman NP Primary Care Provider [phone]- [phone] Lupillo Sinclair MD Unavailable [phone] Encounter Details Date Type Department Care Team (Late st Contact Info) Description 08/03/2023 Procedure Pass [facility] Non-[facility] [address] [place], [place] [id number] Social History Tobacco Use Types Packs/Day Years [...] documented as of this encounter Care Teams Filtration Plant Mechanic Relationship Specialty Start Date End Date Deion Asencio MD [address] [place] [address] PCP - General Family Medicine 06/08/18 06/02/24 Nessa Hillman NP [address] [place] [address] PCP - General Nurse Practitioner 06/03/24 Lupillo Sinclair MD [address] [place] [address] Cardiology 12/24/24 documented as of this encounter Additional Source Comments The information contained in this document represents components of the legal health record. It is not the complete legal health record.[facility]
--- OUTSIDE RECORDS SUMMARY | 2025-08-26 11:46 | XMS_ITS | Encounter Summary ---
Author Organization [facility] Address [address] [facility] [address] [place] [address] Phone Care Team Providers Care Construction Coordinator Name Role Phone Deion Asencio MD Primary Care Provider + Nessa Hillman NP Primary Care Provider [phone]- [phone] Lupillo Sinclair MD Unavailable Encounter Details Date Type Department Care Team (Late st Contact Info) Description 07/26/2023 Procedure Pass [facility] [address] [place] [address] Social History Tobacco Use Types [...] documented as of this encounter Care Teams Construction Coordinator Relationship Specialty Start Date End Date Deion Asencio MD [address] [place] [address] PCP - General Family Medicine 06/08/18 06/02/24 Nessa Hillman NP [address] [place] [address] PCP - General Nurse Practitioner 06/03/24 Lupillo Sinclair MD [address] [place] [address] Cardiology 12/24/24 documented as of this encounter Additional Source Comments The information contained in this document represents components of the legal health record. It is not the complete legal health record.[facility]
--- OUTSIDE RECORDS SUMMARY | 2025-08-26 11:46 | XMS_ITS | Encounter Summary ---
Author Organization [facility] Address [address] [place] [address] Phone Care Team Providers Care Woodworking Machine Feeder Name Role Phone Nessa Hillman NP Primary Care Provider [phone]- [phone] Lupillo Sinclair MD Unavailable [phone] Encounter Details Date Type Department Care Team (Late st Contact Info) Description 06/12/[address] - [address], [address] [place] [id number] Social History Tobacco Use Types Packs/Day Years [...] documented as of this encounter Care Teams Woodworking Machine Feeder Relationship Specialty Start Date End Date Nessa Hillman NP [address] [place] [address] PCP - General Nurse Practitioner 06/03/24 Lupillo Sinclair MD [address] [place] [address] Cardiology 12/24/24 documented as of this encounter Additional Source Comments The information contained in this document represents components of the legal health record. It is not the complete legal health record.[facility]
--- OUTSIDE RECORDS SUMMARY | 2025-08-26 11:46 | XMS_ITS | Encounter Summary ---
Author Organization [facility] Address [address] [place] [address] Phone Care Team Providers Care Professional Poker Player Name Role Phone Nessa Hillman NP Primary Care Provider [phone]- [phone] Lupillo Sinclair MD Unavailable [phone] Encounter Details Date Type Department Care Team (Late st Contact Info) Description 02/17/2025 Procedure Pass [facility] Imaging - RF/IR [address] [place] [address] Social History Tobacco Use Types Packs/Day Years [...] documented as of this encounter Care Teams Professional Poker Player Relationship Specialty Start Date End Date Nessa Hillman NP [address] [place] [address] PCP - General Nurse Practitioner 06/03/24 Lupillo Sinclair MD [address] [address] Cardiology 12/24/24 documented as of this encounter Additional Source Comments The information contained in this document represents components of the legal health record. It is not the complete legal health record.[facility]
--- OUTSIDE RECORDS SUMMARY | 2025-08-26 11:46 | XMS_ITS | Encounter Summary ---
Author Organization [facility] Address [address] [place] [address] Phone Care Team Providers Care Diesel Instructor Name Role Phone Nessa Hillman NP Primary Care Provider [phone]- [phone] Lupillo Sinclair MD Unavailable [phone] Encounter Details Date Type Department Care Team ([facility] st Contact Info) Description 02/17/2025 Procedure Pass [facility] [address] [facility], [address], [address] [place] [address] Social History Tobacco Use Types Packs/Day Years [...] documented as of this encounter Care Teams Diesel Instructor Relationship Specialty Start Date End Date Nessa Hillman NP [address] [place] [address] PCP - General Nurse Practitioner 06/03/24 Lupillo Sinclair MD [address] [address] Cardiology 12/24/24 documented as of this encounter Additional Source Comments The information contained in this document represents components of the legal health record. It is not the complete legal health record.[facility]
== END 2025-08-26 10:25 | disposition home or self-care (01) ==
LOC: HO.HVNA 10:24
PROVIDERS: Visit Provider Internal Medicine
DX: I25.10 Atherosclerotic heart disease of native coronary artery without angina pectoris (principal); I48.0 Paroxysmal atrial fibrillation; Z13.21 Encounter for screening for nutritional disorder
CPT/HCPCS: 36415; 80053; 80061; 82306; 83540; 83735; 85025